=== PATIENT | female | born 1950 | race Caucasian/White ===

== ENCOUNTER → 2018-12-21 16:19 | Outpatient (CLI) | payer MEDICARE, OTHER, SELFPAY ==
--- NOTE | 2018-12-21 16:22 | CT_ITS ---
STUDY: CT BRAIN WITHOUT CONTRAST REASON FOR EXAM: Female, 68 years old. Headache and left-sided facial droop. Younger in. History of cerebral palsy. RADIATION DOSAGE (If Supplied By Facility): CTDIvol = ( 44.99 ) mGy, DLP = ( 762.36 ) mGycm TECHNIQUE: Transaxial CT imaging of the brain was performed without administration of intravenous contrast material. Individualized dose optimization techniques were used for this CT. COMPARISON: March 03, 2016. FINDINGS: Normal soft tissue structures. Normal calvarium. There is mild cerebral atrophy with widening of the extra-axial spaces and ventricular dilatation. This is most marked in the right parietal region. Normal white matter tracts of the cerebral hemispheres. There is a remote lacunar infarct in both basal ganglia as. Normal thalami. Normal brainstem. Normal cerebellum. There is no intracranial hemorrhage. There are no findings of an acute ischemic infarction. Normal visualized paranasal sinuses. CT/Brain/Head without Contrast IMPRESSION: Chronic involutional changes without evidence of acute intracranial or calvarial abnormality. There is no interval change. There is continued concern for acute stroke, MRI is recommended. Electronically Signed: Phil Silverio DO at 16:43 EDT Tel [phone], Service support ,
== END ==
PROVIDERS: Family Provider Family Medicine; PCP Family Medicine; Referring Provider Family Medicine; Visit Provider Family Medicine
DX: R51 Headache (principal); R29.810 Facial weakness
CPT/HCPCS: 70450

== ENCOUNTER 2019-06-12 16:48 | Emergency (ER) | payer MEDICARE, OTHER, SELFPAY ==
[2019-05-26 13:06] VITALS: BMI 36.8
[2019-06-12 16:49] VITALS: BP 170/85; PULSE 96; RESP 16; TEMP 37.2; O2SAT 95; BMI 40.2
--- NOTE | 2019-06-12 17:05 | RAD_ITS ---
STUDY: X-RAY - LEFT SHOULDER REASON FOR EXAM: Female, 68 years old. Pain. Falls. TECHNIQUE: History view(s) of the shoulder. COMPARISON: None. FINDINGS: There is mild degenerative arthrosis of the glenohumeral articulation. There is degenerative arthrosis of the acromioclavicular joint without inferior osseous spur formation. Normal acromion. Normal humeral head and visualized proximal humerus. The soft tissue structures are unremarkable. There is no demonstrated fracture. Normal visualized pulmonary apex. RAD/Shoulder min 2 Views IMPRESSION: No acute fracture or dislocation. Degenerative changes. Electronically Signed: Migel Mahoney MD at 18:00 EST , Service support ,
--- NOTE | 2019-06-12 17:05 | RAD_ITS ---
STUDY: X-RAY - RIGHT KNEE REASON FOR EXAM: Female, 68 years old. RIGHT KNEE PAIN FROM TWO FALLS TODAY TECHNIQUE: 4 view(s) of the knee. COMPARISON: None. FINDINGS: Normal visualized distal femur. Normal visualized proximal tibia and fibula. Normal proximal tibiofibular articulation. There is no demonstrated fracture. Normal appearance of total knee arthroplasty. There are atherosclerotic calcifications. RAD/Knee 4 or More Views IMPRESSION: No acute fracture or dislocation. Electronically Signed: Migel Mahoney MD at 17:41 EST , Service support ,
--- NOTE | 2019-06-12 17:06 | ED.VISSUMM ---
- ER Visit Summary Date of Service: 06/12/19 Chief Complaint: Fall History of Present Illness: The patient is a 68 F who presents after a fall that occurred today. Patient actually fell twice today. Patient is wheelchair-bound due to cerebral palsy and fell while transferring from her wheelchair. Patient initially injured her right knee when she fell. Patient injured her left shoulder on the second fall. Patient states her pain is aching in her left shoulder and sharp in her right knee. Patient states her pain is worse with any movement. Patient denies any paresthesias or weakness. Patient denies any head injury or loss of consciousness. Physical Examination: Vital signs are stable. Patient is afebrile. Patient is in no acute distress. Musculoskeletal exam reveals tenderness over the left acromioclavicular joint. There is no edema or ecchymosis. There is no deformity noted. Range of motion was slightly limited in all motions of the left shoulder secondary to pain. There is no laxity appreciated. There is also tenderness edema and ecchymosis over the right knee. Range of motion was limited in flexion past 30 degrees secondary to pain. There is no effusion. There is no obvious deformity noted. There is no bony crepitance or step-off. Sensation was intact light touch bilaterally in the upper and lower extremities. Strength is 5/5 bilateral knee upper and lower extremities. Radial and pedal pulses are equal bilaterally. Test Results: X-rays of the right knee and left shoulder were obtained. There are no acute fractures. The knee prosthesis was intact. There is no dislocation noted. These were interpreted by the radiologist and myself. Emergency Department Course and Treatment: Patient was advised of her results. Patient was instructed to ice and elevate the right knee and left shoulder. Patient was instructed to follow-up with her primary care physician in 5 to 7 days. Patient has [place] at home for pain. Patient understood and was agreeable with the plan. All questions were answered. Disposition: Discharge home Impression: 1. Right knee contusion 2. Left shoulder contusion This note was generated with [employer] dictation software. It may contain incorrect words, spelling, and punctuation that were not noted in review of the chart prior to signing ED Disposition - Plan for ED Patient: Disposition: Home or Assisted Living Diagnosis: Contusion of left shoulder, Contusion of right knee, initial encounter Instructions: CONTUSION, Soft Tissue Referrals: Baudilio Sultana MD [Primary Care Provider] - 5-7 Days
[2019-06-12 18:07] VITALS: BP 162/88; PULSE 90; RESP 16; O2SAT 97
== END 2019-06-12 19:06 | disposition home or self-care (01) ==
PROVIDERS: Emergency Provider Emergency Medicine; Family Provider Family Medicine; PCP Family Medicine
DX: S40.012A Contusion of left shoulder, initial encounter (principal); S80.01XA Contusion of right knee, initial encounter; W05.0XXA Fall from non-moving wheelchair, initial encounter; Y93.9 Activity, unspecified; Y92.9 Unspecified place or not applicable; Y99.9 Unspecified external cause status; G80.9 Cerebral palsy, unspecified; M32.9 Systemic lupus erythematosus, unspecified; I25.10 Atherosclerotic heart disease of native coronary artery without angina pectoris; E11.9 Type 2 diabetes mellitus without complications; E03.9 Hypothyroidism, unspecified; M79.7 Fibromyalgia; R19.7 Diarrhea, unspecified; Z79.82 Long term (current) use of aspirin; Z79.01 Long term (current) use of anticoagulants; Z79.4 Long term (current) use of insulin; Z79.899 Other long term (current) drug therapy; Z99.3 Dependence on wheelchair; Z95.5 Presence of coronary angioplasty implant and graft; Z96.651 Presence of right artificial knee joint
CPT/HCPCS: 73030; 73564; 99283

== ENCOUNTER → 2019-08-11 10:26 | Outpatient (CLI) | payer MEDICARE, OTHER, SELFPAY ==
[2019-08-11 12:07] LABS: Vitamin B12 179 pg/mL (211-911)
== END ==
PROVIDERS: PCP Family Medicine; Visit Provider Family Medicine
DX: D75.89 Other specified diseases of blood and blood-forming organs (principal)
CPT/HCPCS: 36415; 82607; 82746

== ENCOUNTER → 2019-08-18 09:11 | Outpatient (CLI) | payer MEDICARE, OTHER, SELFPAY ==
[2019-08-18 12:30] LABS: Vitamin B12 197 pg/mL (211-911)
[2019-08-19 13:01] LABS: Anti-Parietal Cell AB, QN 2.4 Units (0.0-20.0)
== END ==
PROVIDERS: PCP Family Medicine; Visit Provider Family Medicine
DX: D51.8 Other vitamin B12 deficiency anemias (principal)
CPT/HCPCS: 36415; 82607; 83516

== ENCOUNTER → 2019-11-10 08:28 | Outpatient (CLI) | payer MEDICARE, OTHER, SELFPAY ==
[2019-11-10 10:23] LABS: Mucous, Urine 0 SEEN /hpf (<or=2+); Red Blood Cells-Urine 0 SEEN /hpf (0-5); Squamous Epithelial Cells - UA 0 SEEN /hpf (5-10)
[2019-11-10 10:37] LABS: Color, Urine Yellow (Yellow); Glucose, Dipstick Normal (Normal); Ketone-Dipstick Negative (Negative); Leukocyte Esterase-Dipstick 500 /ul (Negative); Nitrite-Dipstick Positive (Negative); Occult Blood-Urine 25 /ul (Negative); Protein-Dipstick 30 mg/dl (Negative); Urine Bilirubin Dipstick Negative (Negative); Urine Clarity Cloudy (Clear); Urine Urobilinogen Normal (Normal)
[2019-11-10 10:43] LABS: Absolute Lymphocyte Count 1.34 X10^3/uL (0.83-4.51); Absolute Neutrophil Count 2.7 X10^3/uL (2.0-7.7); Basophil# 0.03 X10^3/uL; Basophil% 0.7 % (0-1); Eosinophil# 0.14 X10^3/uL; Eosinophils% 3.1 % (0-5); Hematocrit 40.3 % (37-47); Hemoglobin 13.4 g/dL (12.0-15.0); Lymphocyte # 1.34 X10^3/ul (4.0); Lymphocyte % 29.2 % (19-41); Mean Corp Hgb Conc 33.3 g/dL (32-36); Mean Corpuscular Hgb 32.9 pg (27.0-32.0); Mean Platelet Vol. 10.9 fl (6.2-12.0); Monocyte# 0.32 X10^3/uL; NRBC Flagged by Analyzer 0 % (0-5); Neutrophil # 2.74 X10^3/uL (2.7-7.7); Neutrophil % 59.6 % (47-70); Platelet Count 189 K/mm3 (150-450); RBC Distribution Width CV 12.5 % (11.6-14.6); RBC Distribution Width SD 45.1 fl (35.1-43.9); Red Blood Count 4.07 M/mm3 (4.2-5.4); White Blood Count 4.6 K/mm3 (4.4-11.0)
[2019-11-10 10:47] LABS: Bacteria 2+ /hpf (None Seen); White Blood Cells >100 SEEN /hpf (0-5)
[2019-11-10 12:54] LABS: Vitamin B12 366 pg/mL (211-911)
[2019-11-10 12:55] LABS: Hemoglobin A1c 6.3 % (3.8-5.6)
[2019-11-10 12:56] LABS: BUN 10 mg/dL (7-18); Glucose 138 mg/dL (74-106)
[2019-11-10 12:57] LABS: ALB/GLOB Ratio 0.9 RATIO (0.9-2.4); AST(SGOT) 21 U/L (15-37); Alanine Aminotransfer ALT/SGPT 18 U/L (13-56); Albumin, Serum 2.6 g/dL (3.2-5.0); Alkaline Phosphatase 41 U/L (45-117); BUN/Creat Ratio 14.7 RATIO (10-20); Calcium,Total 8.8 mg/dL (8.5-10.1); Chloride 107 mmol/L (98-107); Creatinine, Serum 0.68 mg/dL (0.55-1.02); EST Glomerular Filtration Rate 91 mL/min (>60); Est Glom Filt Rate - Afr Amer 110 mL/min (>60); Globulin 2.9 g/dL (2.2-4.2); Protein, Total 5.5 g/dL (6.4-8.2); Sodium Level 142 mmol/L (136-145)
[2019-11-10 12:58] LABS: Anion Gap 5 (5-15)
== END ==
PROVIDERS: Visit Provider Family Medicine
DX: E53.8 Deficiency of other specified B group vitamins (principal); E11.40 Type 2 diabetes mellitus with diabetic neuropathy, unspecified; I10 Essential (primary) hypertension; R35.0 Frequency of micturition
CPT/HCPCS: 36415; 80053; 81001; 82607; 83036; 85025; 87077; 87086; 87088; 87186

== ENCOUNTER → 2020-01-31 14:09 | Outpatient (CLI) | payer MEDICARE, OTHER, SELFPAY ==
[2019-11-28 13:02] VITALS: BMI 31.9
[2020-01-31 15:14] LABS: Erythrocyte Sedimentation Rate 10 mm/hr (0-30)
[2020-01-31 15:28] LABS: CRP 4.07 mg/L (0.0-3.0)
[2020-02-02 14:09] LABS: Anti-Scleroderma-70 AB <0.2 AI (0.0-0.9); RNP Ab <0.2 AI (0.0-0.9); SJOGREN'S Anti-SS-B test < 0.2 AI (0.0-0.9); Smith Ab <0.2 AI (0.0-0.9)
[2020-02-02 15:33] LABS: ANTINUCLEAR ANTIBODIES DIRECT Positive (Negative); Anti-Mitochondrial AB <20.0 Units (0.0-20.0); Anti-dsDNA Ab <1 IU/mL (0-9)
[2020-02-04 03:06] LABS: Complement C3 130 mg/dL (82-167)
[2020-02-04 08:32] LABS: Anti-Parietal Cell AB, QN 2.9 Units (0.0-20.0); Anti-Smooth Muscle ABS 14 Units (0-19); CCP IgG Antibodies 4 units (0-19); Thyroid Peroxidase AB 9 IU/mL (0-34)
== END ==
PROVIDERS: PCP Family Medicine; Referring Provider Internal Medicine Rheumatology; Visit Provider Internal Medicine Rheumatology
DX: M32.10 Systemic lupus erythematosus, organ or system involvement unspecified (principal)
CPT/HCPCS: 36415; 83516; 85652; 86038; 86140; 86160; 86200; 86225; 86235; 86376

== ENCOUNTER → 2020-03-21 08:33 | Outpatient (CLI) | payer MEDICARE, OTHER, SELFPAY ==
[2019-11-28 13:02] VITALS: BMI 31.9
[2020-03-21 11:01] LABS: Absolute Lymphocyte Count 1.55 X10^3/uL (0.83-4.51); Absolute Neutrophil Count 3.9 X10^3/uL (2.0-7.7); Basophil# 0.04 X10^3/uL; Basophil% 0.7 % (0-1); Eosinophil# 0.18 X10^3/uL; Hematocrit 40.8 % (37-47); Hemoglobin 13.5 g/dL (12.0-15.0); Lymphocyte # 1.55 X10^3/ul (4.0); Lymphocyte % 25.6 % (19-41); Mean Corp Hgb Conc 33.1 g/dL (32-36); Mean Corpuscular Hgb 32.4 pg (27.0-32.0); Mean Corpuscular Volume 97.8 fL (81-99); Mean Platelet Vol. 10.6 fl (6.2-12.0); Monocyte# 0.32 X10^3/uL; Monocyte% 5.3 % (0-10); NRBC Flagged by Analyzer 0 % (0-5); Neutrophil # 3.93 X10^3/uL (2.7-7.7); Neutrophil % 64.9 % (47-70); Platelet Count 213 K/mm3 (150-450); RBC Distribution Width CV 13.5 % (11.6-14.6); RBC Distribution Width SD 48.1 fl (35.1-43.9); Red Blood Count 4.17 M/mm3 (4.2-5.4); White Blood Count 6.1 K/mm3 (4.4-11.0)
[2020-03-21 11:30] LABS: ALB/GLOB Ratio 0.7 RATIO (0.9-2.4); AST(SGOT) 40 U/L (15-37); Alanine Aminotransfer ALT/SGPT 25 U/L (13-56); Albumin, Serum 2.7 g/dL (3.2-5.0); Alkaline Phosphatase 50 U/L (45-117); Anion Gap 7 (5-15); BUN 7 mg/dL (7-18); BUN/Creat Ratio 11.8 RATIO (10-20); Calcium,Total 8.3 mg/dL (8.5-10.1); Chloride 109 mmol/L (98-107); Cholesterol 177 mg/dL (200); Creatinine, Serum 0.59 mg/dL (0.55-1.02); EST Glomerular Filtration Rate 107 mL/min (>60); Est Glom Filt Rate - Afr Amer 130 mL/min (>60); Globulin 3.9 g/dL (2.2-4.2); Glucose 166 mg/dL (74-106); High Density Lipoprotein 31 mg/dL; Protein, Total 6.6 g/dL (6.4-8.2); Sodium Level 140 mmol/L (136-145); Triglycerides 160 mg/dL; Very Low Density Lipoprotein 32 mg/dL (5-40)
[2020-03-21 11:31] LABS: Vitamin B12 441 pg/mL (211-911)
[2020-03-21 11:43] LABS: Hemoglobin A1c 6.9 % (3.8-5.6)
== END ==
PROVIDERS: PCP Family Medicine; Referring Provider Family Medicine; Visit Provider Family Medicine
DX: E11.40 Type 2 diabetes mellitus with diabetic neuropathy, unspecified (principal); E53.8 Deficiency of other specified B group vitamins
CPT/HCPCS: 36415; 80053; 80061; 82607; 83036; 85025

== ENCOUNTER → 2020-07-11 07:57 | Outpatient (CLI) | payer MEDICARE, OTHER, SELFPAY ==
[2019-11-28 13:02] VITALS: BMI 31.9
[2020-07-11 10:58] LABS: Microalbumin,Random Urine 13.7 mg/L (NO RANGE EST.)
[2020-07-11 11:16] LABS: Thyroid Stim Hormone (TSH) 1.74 uIU/mL (0.358-3.74)
== END ==
PROVIDERS: PCP Family Medicine; Referring Provider Family Medicine; Visit Provider Family Medicine
DX: E11.40 Type 2 diabetes mellitus with diabetic neuropathy, unspecified (principal); E03.9 Hypothyroidism, unspecified
CPT/HCPCS: 36415; 82043; 82570; 84443

== ENCOUNTER → 2020-08-21 04:39 | Outpatient (REF) | payer MEDICARE, OTHER, SELFPAY ==
[2020-08-20 13:04] VITALS: BMI 34.8
[2020-08-21 11:14] LABS: Absolute Lymphocyte Count 1.17 X10^3/uL (0.83-4.51); Absolute Neutrophil Count 2.8 X10^3/uL (2.0-7.7); Basophil# 0.02 X10^3/uL; Basophil% 0.5 % (0-1); Eosinophil# 0.13 X10^3/uL; Hematocrit 31.6 % (37-47); Hemoglobin 11.8 g/dL (12.0-15.0); Lymphocyte # 1.17 X10^3/ul (4.0); Lymphocyte % 26.8 % (19-41); Mean Corp Hgb Conc 37.3 g/dL (32-36); Mean Corpuscular Hgb 38.6 pg (27.0-32.0); Mean Corpuscular Volume 103.3 fL (81-99); Mean Platelet Vol. 11.1 fl (6.2-12.0); Monocyte# 0.28 X10^3/uL; Monocyte% 6.4 % (0-10); NRBC Flagged by Analyzer 0 % (0-5); Neutrophil # 2.75 X10^3/uL (2.7-7.7); Neutrophil % 63.1 % (47-70); Platelet Count 162 K/mm3 (150-450); RBC Distribution Width CV 19.7 % (11.6-14.6); RBC Distribution Width SD 54.6 fl (35.1-43.9); Red Blood Count 3.06 M/mm3 (4.2-5.4); White Blood Count 4.4 K/mm3 (4.4-11.0)
[2020-08-21 11:37] LABS: Hemoglobin A1c 5.1 % (3.8-5.6)
[2020-08-21 11:50] LABS: ALB/GLOB Ratio 0.8 RATIO (0.9-2.4); AST(SGOT) 49 U/L (15-37); Alanine Aminotransfer ALT/SGPT 34 U/L (13-56); Albumin, Serum 2.7 g/dL (3.2-5.0); Alkaline Phosphatase 51 U/L (45-117); Anion Gap 6 (5-15); BUN 12 mg/dL (7-18); BUN/Creat Ratio 19.3 RATIO (10-20); Calcium,Total 8.4 mg/dL (8.5-10.1); Chloride 108 mmol/L (98-107); Cholesterol 128 mg/dL (200); Creatinine, Serum 0.62 mg/dL (0.55-1.02); EST Glomerular Filtration Rate 101 mL/min (>60); Est Glom Filt Rate - Afr Amer 122 mL/min (>60); Globulin 3.5 g/dL (2.2-4.2); Glucose 108 mg/dL (74-106); High Density Lipoprotein 37 mg/dL; Potassium 4.9 mmol/L (3.5-5.1); Protein, Total 6.2 g/dL (6.4-8.2); Sodium Level 140 mmol/L (136-145); Triglycerides 102 mg/dL; Very Low Density Lipoprotein 20 mg/dL (5-40)
== END ==
LOC: LAB 04:39
PROVIDERS: PCP Family Medicine; Referring Provider Family Medicine; Visit Provider Family Medicine
DX: E78.00 Pure hypercholesterolemia, unspecified (principal); E11.42 Type 2 diabetes mellitus with diabetic polyneuropathy; Z86.711 Personal history of pulmonary embolism
CPT/HCPCS: 36415; 80053; 80061; 83036; 85025

== ENCOUNTER → 2020-08-29 04:53 | Outpatient (CLI) | payer MEDICARE, OTHER, SELFPAY ==
[2020-08-20 13:04] VITALS: BMI 34.8
[2020-08-29 09:58] LABS: Absolute Lymphocyte Count 1.21 X10^3/uL (0.83-4.51); Absolute Neutrophil Count 3.2 X10^3/uL (2.0-7.7); Basophil# 0.02 X10^3/uL; Basophil% 0.4 % (0-1); Eosinophil# 0.14 X10^3/uL; Eosinophils% 2.9 % (0-5); Hematocrit 33.8 % (37-47); Hemoglobin 11.7 g/dL (12.0-15.0); Lymphocyte # 1.21 X10^3/ul (4.0); Lymphocyte % 24.9 % (19-41); Mean Corp Hgb Conc 34.6 g/dL (32-36); Mean Corpuscular Hgb 34.7 pg (27.0-32.0); Mean Corpuscular Volume 100.3 fL (81-99); Mean Platelet Vol. 10.8 fl (6.2-12.0); Monocyte# 0.31 X10^3/uL; Monocyte% 6.4 % (0-10); NRBC Flagged by Analyzer 0 % (0-5); Neutrophil # 3.15 X10^3/uL (2.7-7.7); Platelet Count 173 K/mm3 (150-450); RBC Distribution Width CV 15.7 % (11.6-14.6); RBC Distribution Width SD 56.1 fl (35.1-43.9); Red Blood Count 3.37 M/mm3 (4.2-5.4); White Blood Count 4.9 K/mm3 (4.4-11.0)
[2020-08-29 10:27] LABS: Vitamin B12 748 pg/mL (211-911)
[2020-08-29 10:38] LABS: AST(SGOT) 36 U/L (15-37); Alanine Aminotransfer ALT/SGPT 27 U/L (13-56); Albumin, Serum 2.8 g/dL (3.2-5.0); Alkaline Phosphatase 51 U/L (45-117); Bilirubin, Direct 0.16 mg/dL (0.00-0.30); Ferritin 121 ng/mL (8-252); Globulin 3.7 g/dL (2.2-4.2); Iron 102 ug/dL (50-170); Iron Binding Capacity,Total 260 ug/dL (250-450); Protein, Total 6.5 g/dL (6.4-8.2)
[2020-08-30 06:07] LABS: HEPATITIS B SURFACE AG Negative (Negative); Hepatitis A IgM Antibody Negative (Negative); Hepatitis B Core AB IgM Negative (Negative)
[2020-08-30 09:50] LABS: Hep C Antibodies <0.1 s/co ratio (0.0-0.9)
== END ==
PROVIDERS: PCP Family Medicine; Referring Provider Family Medicine; Visit Provider Family Medicine
DX: R74.8 Abnormal levels of other serum enzymes (principal); D64.9 Anemia, unspecified
CPT/HCPCS: 36415; 80074; 80076; 82274; 82607; 82728; 82746; 83540; 83550; 85025

== ENCOUNTER → 2020-09-21 05:31 | Outpatient (CLI) | payer MEDICARE, OTHER, SELFPAY ==
[2020-08-20 13:04] VITALS: BMI 34.8
[2020-09-21 10:38] LABS: Red Blood Cells-Urine 0 SEEN /hpf (0-5)
[2020-09-21 10:53] LABS: Erythrocyte Sedimentation Rate 15 mm/hr (0-30)
[2020-09-21 10:55] LABS: Color, Urine Yellow (Yellow); Glucose, Dipstick Normal (Normal); Ketone-Dipstick Negative (Negative); Leukocyte Esterase-Dipstick 500 /ul (Negative); Nitrite-Dipstick Negative (Negative); Occult Blood-Urine Negative /ul (Negative); Protein-Dipstick Negative (Negative); Urine Bilirubin Dipstick Negative (Negative); Urine Clarity Sl. Cloudy (Clear); Urine Urobilinogen Normal (Normal)
[2020-09-21 10:55] LABS: Absolute Lymphocyte Count 1.45 X10^3/uL (0.83-4.51); Absolute Neutrophil Count 3.5 X10^3/uL (2.0-7.7); Basophil# 0.03 X10^3/uL; Basophil% 0.5 % (0-1); Eosinophil# 0.19 X10^3/uL; Eosinophils% 3.4 % (0-5); Hemoglobin 12.4 g/dL (12.0-15.0); Lymphocyte # 1.45 X10^3/ul (4.0); Lymphocyte % 26.1 % (19-41); Mean Corp Hgb Conc 33.5 g/dL (32-36); Mean Corpuscular Volume 104.5 fL (81-99); Mean Platelet Vol. 11.1 fl (6.2-12.0); Monocyte# 0.32 X10^3/uL; Monocyte% 5.8 % (0-10); NRBC Flagged by Analyzer 0 % (0-5); Neutrophil # 3.54 X10^3/uL (2.7-7.7); Neutrophil % 63.7 % (47-70); Platelet Count 215 K/mm3 (150-450); RBC Distribution Width CV 14.7 % (11.6-14.6); RBC Distribution Width SD 55.6 fl (35.1-43.9); Red Blood Count 3.54 M/mm3 (4.2-5.4); White Blood Count 5.6 K/mm3 (4.4-11.0)
[2020-09-21 11:01] LABS: Bacteria 1+ /hpf (None Seen); Mucous, Urine 1+ /hpf (<or=2+); Squamous Epithelial Cells - UA 5-10 SEEN /hpf (5-10); White Blood Cells 25-50 SEEN /hpf (0-5)
[2020-09-21 11:09] LABS: Amphetamine Urine VISTA NEGATIVE (<1000 ng/mL); Barbiturate Urine VISTA NEGATIVE (< 200 ng/mL); Benzodiazepine Urine VISTA NEGATIVE (< 200 ng/mL); Cocaine Urine VISTA NEGATIVE (< 300 ng/mL); Ecstacy Urine VISTA POSITIVE (< 500 ng/mL); Methadone Urine VISTA NEGATIVE (< 300 ng/mL); PCP Urine VISTA NEGATIVE (< 25 ng/mL); THC Urine VISTA NEGATIVE (< 50 ng/mL); Vista UDS pH Range 5
[2020-09-21 11:12] LABS: AST(SGOT) 44 U/L (15-37); Alanine Aminotransfer ALT/SGPT 28 U/L (13-56); Albumin, Serum 2.9 g/dL (3.2-5.0); BUN 10 mg/dL (7-18); CRP 4.09 mg/L (0.0-3.0); Creatinine, Serum 0.72 mg/dL (0.55-1.02); EST Glomerular Filtration Rate 86 mL/min (>60); Est Glom Filt Rate - Afr Amer 104 mL/min (>60)
== END ==
PROVIDERS: PCP Family Medicine; Referring Provider Internal Medicine Rheumatology; Visit Provider Internal Medicine Rheumatology
DX: M32.10 Systemic lupus erythematosus, organ or system involvement unspecified (principal); Z51.81 Encounter for therapeutic drug level monitoring
CPT/HCPCS: 36415; 80307; 81001; 82040; 82565; 84450; 84460; 84520; 85025; 85652; 86140

== ENCOUNTER → 2020-10-09 08:05 | Outpatient (CLI) | payer MEDICARE, OTHER, SELFPAY ==
[2020-08-20 13:04] VITALS: BMI 34.8
== END ==
PROVIDERS: PCP Family Medicine; Referring Provider Family Medicine; Visit Provider Family Medicine
DX: R82.81 Pyuria (principal)
CPT/HCPCS: 87077; 87086; 87088; 87186

== ENCOUNTER → 2021-03-11 | Outpatient (CLI) | payer MEDICARE, OTHER, SELFPAY ==
[2021-03-11 11:40] LABS: 24 HR UR TOTAL VOLUME 925 ML; Microalbumin,Random Urine 7.9 mg/L (NOT. EST.); Urine Microalbumin (24 Hour) 7.3 mg/24 HR (0.0-30.0)
== END | disposition home or self-care (01) ==
LOC: LABSPEC 10:22
PROVIDERS: PCP Family Medicine; Visit Provider Family Medicine
DX: R80.9 Proteinuria, unspecified (principal); Z99.3 Dependence on wheelchair
CPT/HCPCS: 81050; 82043

== ENCOUNTER → 2021-03-26 10:17 | Outpatient (CLI) | payer MEDICARE, MEDICAID, SELFPAY ==
[2021-03-26 10:56] LABS: Erythrocyte Sedimentation Rate 11 mm/hr (0-30)
[2021-03-26 10:57] LABS: Absolute Lymphocyte Count 1.25 X10^3/uL (0.83-4.51); Absolute Neutrophil Count 3.1 X10^3/uL (2.0-7.7); Basophil# 0.04 X10^3/uL; Basophil% 0.8 % (0-1); Eosinophil# 0.16 X10^3/uL; Eosinophils% 3.3 % (0-5); Hematocrit 40.7 % (37-47); Hemoglobin 13.5 g/dL (12.0-15.0); Lymphocyte # 1.25 X10^3/ul (0.83-4.51); Lymphocyte % 25.4 % (19-41); Mean Corp Hgb Conc 33.2 g/dL (32-36); Mean Corpuscular Hgb 31.5 pg (27.0-32.0); Mean Corpuscular Volume 94.9 fL (81-99); Mean Platelet Vol. 10.4 fl (6.2-12.0); Monocyte# 0.34 X10^3/uL; Monocyte% 6.9 % (0-10); NRBC Flagged by Analyzer 0 % (0-5); Neutrophil # 3.12 X10^3/uL (2.7-7.7); Neutrophil % 63.4 % (47-70); Platelet Count 184 K/mm3 (150-450); RBC Distribution Width SD 45.4 fl (35.1-43.9); Red Blood Count 4.29 M/mm3 (4.2-5.4); White Blood Count 4.9 K/mm3 (4.4-11.0)
[2021-03-26 11:43] LABS: AST(SGOT) 21 U/L (15-37); Alanine Aminotransfer ALT/SGPT 17 U/L (13-56); Albumin, Serum 2.9 g/dL (3.2-5.0); BUN 12 mg/dL (7-18); CPK Total, Creatine Kinase 52 U/L (26-192); CRP < 2.90 mg/L (0.0-3.0); Creatinine, Serum 0.93 mg/dL (0.55-1.02); EST Glomerular Filtration Rate 63 mL/min (>60); Est Glom Filt Rate - Afr Amer 77 mL/min (>60)
[2021-03-27 17:07] LABS: Anti-Centromere B Ab <0.2 AI (0.0-0.9); Anti-Chromatin 0.2 AI (0.0-0.9); Anti-Jo <0.2 AI (0.0-0.9); Anti-Scleroderma-70 AB <0.2 AI (0.0-0.9); Anti-ribosomal P Antibodies <0.2 AI (0.0-0.9); RNP Ab 0.4 AI (0.0-0.9); SJOGREN'S Anti-SS-A test 0.8 AI (0.0-0.9); SJOGREN'S Anti-SS-B test < 0.2 AI (0.0-0.9); Smith Ab <0.2 AI (0.0-0.9); Smith/RNP Ab <0.2 AI (0.0-0.9)
[2021-03-28 08:09] LABS: Complement C3 108 mg/dL (82-167); Cytoplasmic Ab (C-ANCA) <1:20 titer (Neg:<1:20)
[2021-03-28 14:17] LABS: CCP IgG Antibodies 6 units (0-19); Perinuclear Ab (P-ANCA) <1:20 titer (Neg:<1:20); Thyroid Peroxidase AB < 8 IU/mL (0-34)
[2021-03-28 18:19] LABS: Anti-dsDNA Ab <1 IU/mL (0-9)
== END ==
PROVIDERS: PCP Family Medicine; Referring Provider Internal Medicine Rheumatology; Visit Provider Internal Medicine Rheumatology
DX: M32.10 Systemic lupus erythematosus, organ or system involvement unspecified (principal)
CPT/HCPCS: 36415; 82040; 82550; 82565; 84443; 84450; 84460; 84520; 84550; 85025; 85652; 86038; 86140; 86160; 86200; 86225; 86235; 86256; 86376

== ENCOUNTER 2021-04-22 21:53 | Emergency (ER) | payer MEDICARE, OTHER, MEDICAID, SELFPAY ==
[2021-04-22 21:54] VITALS: BP 152/80; PULSE 88; RESP 16; TEMP 37.6; O2SAT 94; BMI 33.3
[2021-04-22 22:06] VITALS: BP 159/86; PULSE 90; RESP 22; O2SAT 96
--- NOTE | 2021-04-22 22:09 | EKG12_ITS ---
Test Reason : WEAKNESS Blood Pressure : / mmHG Vent. Rate : 087 BPM Atrial Rate : 087 BPM P-R Int : 146 ms QRS Dur : 076 ms QT Int : 368 ms P-R-T Axes : 034 -46 057 degrees QTc Int : 442 ms Normal sinus rhythm Left anterior fascicular block Septal infarct , age undetermined , cannot be excluded Abnormal ECG Confirmed by TYREL MENDOZA, YVETTE ([id number]), photo editor DEL KAMINSKI ([id number]) on 04/24/2021 8:44:40 AM Referred By: BO Confirmed By:YVETTE SARAH MD
--- NOTE | 2021-04-22 22:10 | EDS_ITS ---
HPI History of Present Illness Chief Complaint: Weakness Informant: patient, family and EMS Narrative Narrative: 70-year-old female presenting to the emergency department with fever and weakness. Patient states that she got her Covid booster yesterday. She states that today she is felt very weak. She states that she slept most of the day and required assistance getting in and out of her wheelchair. States that normally she is able to help herself stand transition but today cannot. She states that EMS told her she had a fever. She notes a headache. [facility] Medical History (Updated 04/23/21 @ 00:[address] Mehran Campos, ) Acute respiratory failure with hypoxia Anxiety and depression Atherosclerotic heart disease of [place] coronary artery without angina pectoris CAD (coronary artery disease) Carotid artery disease Essential hypertension History of cerebral palsy History of fibromyalgia History of hypothyroidism History of pulmonary embolism History of rheumatoid arthritis HTN (hypertension) Hx of systemic lupus erythematosus (SLE) Morbid obesity Pneumonia Presence of stent in coronary artery (~05/17/08) Pure hypercholesterolemia PVD (peripheral vascular disease) Type II diabetes mellitus Home Medications bupropion HCl 150 mg PO BID 06/06/14 [History Last Taken 06/25/17] fluticasone propionate 2 spray NASAL DAILY 06/06/14 [History Last Taken 06/25/17] hydrocodone-acetaminophen 1 tab PO Q6H PRN PRN #10 tab 06/30/17 [Rx Last Taken Unknown] aspirin 81 mg tablet,delayed release 81 mg PO DAILY 05/26/19 [History Last Taken Unknown] cholecalciferol (vitamin D3) 50 mcg (2,000 unit) tablet 2,000 unit PO DAILY 05/26/19 [History Last Taken Unknown] gabapentin 600 mg tablet 600 mg PO TID 05/26/19 [History Last Taken Unknown] levothyroxine 125 mcg tablet 125 mcg PO DAILY 05/26/19 [History Last Taken Unknown] mirtazapine 30 mg tablet 30 mg PO QHS tab 05/26/19 [History Last Taken Unknown] multivitamin 1 tab PO DAILY 05/26/19 [History Last Taken Unknown] nitroglycerin 0.4 mg sublingual tablet 0.4 mg SUBLINGUAL Q5-15M PRN 05/26/19 [History Last Taken Unknown] ramipril 5 mg capsule 5 mg PO DAILY 05/26/19 [History Last Taken Unknown] warfarin 2.5 mg tablet 5 mg PO DAILY 05/26/19 [History Last Taken Unknown] calcium carb-D3-mag [id number] 1 ea PO DAILY 06/12/19 [History Last Taken Unknown] cyanocobalamin (vitamin B-12) 1,000 mcg/mL injection solution 100 mcg IM QMONTH 08/20/20 [History Last Taken Unknown] magnesium oxide 500 mg capsule 500 mg PO DAILY 08/20/20 [History Last Taken Unknown] melatonin 10 mg tablet 10 mg PO HS PRN 08/20/20 [History Last Taken Unknown] metoprolol succinate 100 mg tablet,extended release 24 hr 100 mg PO DAILY #90 tab 08/20/20 [Rx Last Taken Unknown] metformin 850 mg tablet 850 mg PO DAILY tab 03/26/21 [History Last Taken Unknown] ketoconazole 1 applic TOPICAL DAILY 04/22/21 [History Last Taken Unknown] mupirocin calcium [Bactroban] 1 applic TOPICAL TID 04/22/21 [History Last Taken Unknown] Allergy/AdvReac Type Severity Reaction Status Date / Time cephalexin monohydrate Allergy Unknown Verified 04/22/21 21:54 [From Keflex] ciprofloxacin Allergy Unknown Verified 04/22/21 21:54 erythromycin base Allergy Unknown Verified 04/22/21 21:54 [Erythromycin Base] naproxen [From Naprosyn] Allergy Unknown Verified 04/22/21 21:54 paroxetine HCl [From Paxil] Allergy Unknown Verified 04/22/21 21:54 Penicillins Allergy Unknown Verified 04/22/21 21:54 promethazine HCl Allergy Unknown Verified 04/22/21 21:54 [From Phenergan] Cvhwelo-Acm-Buu Reductase AdvReac Severe Myalgias Verified 04/22/21 21:54 Inhibitor PAPER TAPE AdvReac Rash Uncoded 04/22/21 21:54 Family History Mother Asthma Diabetes Colon cancer Heart disease COPD (chronic obstructive pulmonary disease) Hypertension Father Heart disease Cancer Lung COPD (chronic obstructive pulmonary disease) Abdominal aortic aneurysm (AAA) Brother Cancer Brain Brother COPD (chronic obstructive pulmonary disease) Surgical History History of appendectomy History of arthroscopy of right knee History of foot surgery History of hernia repair History of knee replacement, total History of tonsillectomy History of total hysterectomy Presence of coronary angioplasty implant and graft (~05/17/08) Social History Smoking Status: Never smoker alcohol intake: current details: Rare substance use type: does not use caffeine: Yes Type: tea Number of servings: 1 ROS ROS ED ROS Narrative Generalized weakness Constitutional Constitutional ED: Denies chills or weight loss Eyes Eyes: Denies change in vision or diplopia ENT ENT ED: Denies ear pain, rhinorrhea or sore throat Cardiovascular Cardiovascular: Denies chest pain, orthopnea, palpitations or racing heartbeat Respiratory/Chest Respiratory/Chest: Denies cough, dyspnea or orthopnea Gastrointestinal Gastrointestinal: Denies abdominal pain, diarrhea, nausea or vomiting Genitourinary Genitourinary ED: Denies dysuria, hematuria or urinary frequency Musculoskeletal Musculoskeletal: Reports myalgias; Denies arthralgias Integumentary Denies abscess or rash Neurologic Neurologic: Reports headache(s); Denies weakness Psychiatric Psychiatric: Denies anxiety, depression, suicidal ideation or suicidal thoughts Endocrine Endocrinology: Denies polydipsia, polyphagia or polyuria Allergic/Immunologic Allergic/Immunologic ED: Denies mouth swelling, tongue swelling or urticaria EXAM Physical Exam Const Vital Signs: 04/22/21 21:54 04/22/21 22:06 04/22/21 22:09 Temperature 99.6 F H Temperature Source Temporal Pulse Rate 88 90 Respiratory Rate 16 22 H Respiratory Effort Normal Non-Labored Respiratory Pattern Normal Blood Pressure 152/80 H 159/86 H Blood Pressure Mean 104 110 Pulse Ox 94 96 Oxygen Delivery Method Room Air Room Air Positive well nourished, well developed and obese General Appearance ED: well developed Nutritional Appearance: obese HEENT Reports normocephalic, head/scalp atraumatic, TM's clear and moist mucous membranes Negative for trauma Tympanic Membrane ED: Yes TM's clear Eyes PERRL and EOMs intact bilaterally Neck no lymphadenopathy, supple and no JVD Resp normal respiratory effort and clear to auscultation bilaterally Cardio regular rate, regular rhythm and no murmurs GI normal to inspection, nondistended, normoactive bowel sounds and non-tender Palpation: soft Back/Spine no CVA tenderness and normal ROM Extremity normal to inspection General Extremety ED: Negative for edema General Extremity: Negative for edema Neuro oriented x3 and CN's II-XII intact bilaterally Sensorium / Orientation: alert Motor Exam: strength 5/5 throughout Psych mental status grossly normal Mood & Affect: Negative for depressed or tearful Skin no rashes or lesions noted and no wounds MDM MDM MDM Narrative Medical decision making narrative: CBC is normal. INR 1.9. CMP showed a creatinine of 1.2 glucose of 163. Troponin high-sensitivity is 5. Urinalysis is normal. Patient's vital signs are normal. Clinically I think the patient is doing well though she reports being very fatigued to the point where she cannot walk. I think she is most likely just having a immune response to her vaccination. Do not see that we have a strong reason to hospitalize her. Lab Data Attestation: I reviewed the patient's lab results. Labs: Laboratory Results - last 24 hr 04/22/21 04/22/21 04/22/21 22:35 22:35 22:35 WBC 6.6 RBC 4.61 Hgb 14.5 Hct 43.0 MCV 93.3 MCH 31.5 MCHC 33.7 RDW Std Deviation 46.3 H RDW Coeff of [place] 13.6 Plt Count 160 MPV 10.0 Immature Gran % (Auto) 0.600 Neut % (Auto) 86.9 H Lymph % (Auto) 6.2 L [place] % (Auto) 5.2 Eos % (Auto) 0.8 Baso % (Auto) 0.3 Absolute Neuts (auto) 5.7 Absolute Lymphs (auto) 0.41 L Nucleated RBC % 0 Differential Comment SEE COMMENT Platelet Estimate ADEQUATE RBC Morphology N CHROM Anisocytosis RARE Macrocytosis RARE PT 21.0 H INR 1.9 Sodium 134 L Potassium 4.7 Chloride 101 Carbon Dioxide 30.0 Anion Gap 3 L BUN 15 Creatinine 1.20 H Estim Creat Clear Calc 39.81 Est GFR (MDRD) Af Amer 57 L Est GFR (MDRD) Non-Af 47 L BUN/Creatinine Ratio 12.5 Glucose 163 H Calcium 8.9 Total Bilirubin 0.70 AST 26 ALT 18 Alkaline Phosphatase 59 Troponin I High Sens 5 Total Protein 8.2 Albumin 3.3 Globulin 4.9 H Albumin/Globulin Ratio 0.7 L Urine Color Urine Clarity Urine pH Ur Specific [place] Urine Protein Urine Glucose (UA) Urine Ketones Urine Occult Blood Urine Nitrite Urine Bilirubin Urine Urobilinogen Ur Leukocyte Esterase Urine RBC Urine WBC Ur Squamous Epith Cells Urine Bacteria Urine Mucus 04/22/21 22:42 WBC RBC Hgb Hct MCV MCH MCHC RDW Std Deviation RDW Coeff of [place] Plt Count MPV Immature Gran % (Auto) Neut % (Auto) Lymph % (Auto) [place] % (Auto) Eos % (Auto) Baso % (Auto) Absolute Neuts (auto) Absolute Lymphs (auto) Nucleated RBC % Differential Comment Platelet Estimate RBC Morphology Anisocytosis Macrocytosis PT INR Sodium Potassium Chloride Carbon Dioxide Anion Gap BUN Creatinine Estim Creat Clear Calc Est GFR (MDRD) Af Amer Est GFR (MDRD) Non-Af BUN/Creatinine Ratio Glucose Calcium Total Bilirubin AST ALT Alkaline Phosphatase Troponin I High Sens Total Protein Albumin Globulin Albumin/Globulin Ratio Urine Color Yellow Urine Clarity Clear Urine pH 6.5 Ur Specific [place] 1.010 Urine Protein Negative Urine Glucose (UA) Normal Urine Ketones Negative Urine Occult Blood 10 H Urine Nitrite Negative Urine Bilirubin Negative Urine Urobilinogen Normal Ur Leukocyte Esterase Negative Urine RBC 0 SEEN Urine WBC 0 SEEN Ur Squamous Epith Cells 0 SEEN Urine Bacteria 0 SEEN Urine Mucus 0 SEEN EKG Initial EKG: Attestation: I personally reviewed and interpreted this EKG as follows: Comments: He has normal sinus rhythm with a ventricular rate of 87 bpm Discharge Plan Triage Chief Complaint: Weakness ED Provider: Mehran Campos Dx/Rx/DC Orders Clinical Impression: Weakness, Type II diabetes mellitus, Morbid obesity Instructions: ED Weakness (Uncertain Cause) Prescriptions: No Action aspirin [Adult Low Dose Aspirin] 81 mg tablet,delayed release (DR/EC) 81 mg PO DAILY RF: 0 gabapentin 600 mg tablet 600 mg PO TID RF: 0 levothyroxine 125 mcg tablet 125 mcg PO DAILY RF: 0 multivitamin Tablet 1 tab PO DAILY RF: 0 nitroglycerin 0.4 mg tablet, sublingual 0.4 mg SUBLINGUAL Q5-15M PRN (Reason: chest pain) RF: 0 ramipril 5 mg capsule 5 mg PO DAILY RF: 0 cholecalciferol (vitamin D3) 2,000 unit tablet 2,000 unit PO DAILY RF: 0 warfarin [Coumadin] 2.5 mg tablet 5 mg PO DAILY RF: 0 cyanocobalamin (vitamin B-12) 1,000 mcg/mL solution 100 mcg IM QMONTH RF: 0 magnesium oxide 500 mg capsule 500 mg PO DAILY RF: 0 melatonin 10 mg tablet 10 mg PO HS PRN (Reason: Sleep) RF: 0 metoprolol succinate 100 mg tablet extended release 24 hr 100 mg PO DAILY Qty: 90 RF: 4 metformin 850 mg tablet 850 mg PO DAILY RF: 0 bupropion HCl 150 MG tablet sustained-release 12 hr 150 mg PO BID RF: 0 fluticasone propionate 1 SPRAY spray,suspension 2 spray NASAL DAILY RF: 0 mirtazapine 30 mg tablet 30 mg PO QHS RF: 0 hydrocodone-acetaminophen 1 TABLET tablet 1 tab PO Q6H PRN PRN (Reason: Pain) Qty: 10 RF: 0 calcium carb-D3-mag [id number] 1 EACH tablet 1 ea PO DAILY RF: 0 mupirocin calcium [Bactroban] 2 % Cream 1 applic TOPICAL TID RF: 0 ketoconazole 2 % Cream 1 applic TOPICAL DAILY RF: 0 Primary Care Provider: Baudilio Sultana Referrals: Baudilio Sultana MD [Primary Care Provider] - 3-5 Days if not improving Disposition Disposition: Home, Self Care
[2021-04-22 22:49] LABS: Bacteria 0 SEEN /hpf (None Seen); Mucous, Urine 0 SEEN /hpf (<or=2+); Red Blood Cells-Urine 0 SEEN /hpf (0-5); Squamous Epithelial Cells - UA 0 SEEN /hpf (5-10); White Blood Cells 0 SEEN /hpf (0-5)
[2021-04-22 22:54] LABS: Absolute Lymphocyte Count 0.41 X10^3/uL (0.83-4.51); Absolute Neutrophil Count 5.7 X10^3/uL (2.0-7.7); Basophil# 0.02 X10^3/uL; Basophil% 0.3 % (0-1); Eosinophil# 0.05 X10^3/uL; Eosinophils% 0.8 % (0-5); Hemoglobin 14.5 g/dL (12.0-15.0); Lymphocyte # 0.41 X10^3/ul (0.83-4.51); Lymphocyte % 6.2 % (19-41); Mean Corp Hgb Conc 33.7 g/dL (32-36); Mean Corpuscular Hgb 31.5 pg (27.0-32.0); Mean Corpuscular Volume 93.3 fL (81-99); Monocyte# 0.34 X10^3/uL; Monocyte% 5.2 % (0-10); NRBC Flagged by Analyzer 0 % (0-5); Neutrophil # 5.73 X10^3/uL (2.7-7.7); Neutrophil % 86.9 % (47-70); POSITIVE DIFFERENTIAL YES; Platelet Count 160 K/mm3 (150-450); RBC Distribution Width CV 13.6 % (11.6-14.6); RBC Distribution Width SD 46.3 fl (35.1-43.9); Red Blood Count 4.61 M/mm3 (4.2-5.4); White Blood Count 6.6 K/mm3 (4.4-11.0)
[2021-04-22 22:57] LABS: Color, Urine Yellow (Yellow); Glucose, Dipstick Normal (Normal); Ketone-Dipstick Negative (Negative); Leukocyte Esterase-Dipstick Negative /ul (Negative); Nitrite-Dipstick Negative (Negative); Occult Blood-Urine 10 /ul (Negative); Protein-Dipstick Negative (Negative); Urine Bilirubin Dipstick Negative (Negative); Urine Clarity Clear (Clear); Urine Urobilinogen Normal (Normal); Urine pH 6.5 (5.0 - 8.0)
[2021-04-22 23:04] LABS: International Normalized Ratio 1.9
[2021-04-22 23:10] LABS: ALB/GLOB Ratio 0.7 RATIO (0.9-2.4); AST(SGOT) 26 U/L (15-37); Alanine Aminotransfer ALT/SGPT 18 U/L (13-56); Albumin, Serum 3.3 g/dL (3.2-5.0); Alkaline Phosphatase 59 U/L (45-117); Anion Gap 3 (5-15); BUN 15 mg/dL (7-18); BUN/Creat Ratio 12.5 RATIO (10-20); Calcium,Total 8.9 mg/dL (8.5-10.1); Chloride 101 mmol/L (98-107); EST Glomerular Filtration Rate 47 mL/min (>60); Est Glom Filt Rate - Afr Amer 57 mL/min (>60); Estimated Creatinine Clearance 39.81 ml/min; Globulin 4.9 g/dL (2.2-4.2); Glucose 163 mg/dL (74-106); Potassium 4.7 mmol/L (3.5-5.1); Protein, Total 8.2 g/dL (6.4-8.2); Sodium Level 134 mmol/L (136-145); Troponin-I HS 5 pg/mL (3.0-54.0)
[2021-04-22 23:11] LABS: Differential Indicated SCAN CRITERIA MET
[2021-04-22 23:12] LABS: Anisocytosis RARE; Macrocytosis RARE; Platelet Estimate ADEQUATE (ADEQ); Red Cell Morphology N CHROM NORMAL (NORM C&C)
[2021-04-22] MEDS: Acetaminophen 500 MG Tablet 1000 MG PO (23:31)
[2021-04-23 00:30] VITALS: BP 144/75; PULSE 80; RESP 18; O2SAT 98
== END 2021-04-23 00:49 | disposition home or self-care (01) ==
PROVIDERS: Emergency Provider Emergency Medicine; PCP Family Medicine
DX: R53.1 Weakness (principal); E11.51 Type 2 diabetes mellitus with diabetic peripheral angiopathy without gangrene; E66.01 Morbid (severe) obesity due to excess calories; I25.10 Atherosclerotic heart disease of native coronary artery without angina pectoris; I10 Essential (primary) hypertension; G80.9 Cerebral palsy, unspecified; M06.9 Rheumatoid arthritis, unspecified; M32.9 Systemic lupus erythematosus, unspecified; E78.00 Pure hypercholesterolemia, unspecified; E03.9 Hypothyroidism, unspecified; F32.A Depression, unspecified; F41.9 Anxiety disorder, unspecified; Z68.33 Body mass index [BMI] 33.0-33.9, adult; Z95.5 Presence of coronary angioplasty implant and graft; Z79.01 Long term (current) use of anticoagulants; Z79.82 Long term (current) use of aspirin; Z79.84 Long term (current) use of oral hypoglycemic drugs; Z79.899 Other long term (current) drug therapy; Z86.711 Personal history of pulmonary embolism
CPT/HCPCS: 80053; 81001; 84484; 85025; 85610; 87426; 93005; 99285; A4216

== ENCOUNTER 2021-09-16 09:24 | Outpatient (CLI) | payer MEDICARE, MEDICAID, SELFPAY ==
[2021-09-16 11:46] LABS: Microalbumin,Random Urine 14.9 mg/L (NO RANGE EST.); Microalbumin:Creatinine Ratio 9.4 mg/g CRE (<30 mg/g CRE)
[2021-09-16 12:29] LABS: AST(SGOT) 22 U/L (15-37); Alanine Aminotransfer ALT/SGPT 18 U/L (13-56); Albumin, Serum 3.4 g/dL (3.2-5.0); Alkaline Phosphatase 58 U/L (45-117); Bilirubin, Direct 0.12 mg/dL (0.00-0.30); Cholesterol 142 mg/dL (200); Globulin 4.1 g/dL (2.2-4.2); High Density Lipoprotein 41 mg/dL; Protein, Total 7.5 g/dL (6.4-8.2); Triglycerides 156 mg/dL; Very Low Density Lipoprotein 31 mg/dL (5-40)
== END 2021-09-16 23:59 | disposition home or self-care (01) ==
LOC: LAB 09:27
PROVIDERS: PCP Family Medicine; Referring Provider Family Medicine; Visit Provider Family Medicine
DX: E11.40 Type 2 diabetes mellitus with diabetic neuropathy, unspecified (principal); E11.42 Type 2 diabetes mellitus with diabetic polyneuropathy; E78.5 Hyperlipidemia, unspecified
CPT/HCPCS: 36415; 80061; 80076; 82043; 82570

== ENCOUNTER → 2024-12-05 | Outpatient (REF) | payer MEDICARE, MEDICAID, SELFPAY ==
--- OUTSIDE RECORDS SUMMARY | 2024-12-05 04:09 | XMS RPT_ITS | CCD ---
Author Organization [facility] Inform ion [facility] Care Team Providers Care Colorer Machine Name Role Phone DAVID ERWIN E Unavailable Unavailable YAIMAARTURO CODYNETH E Unavailable Unavailable ARTURO ERWINNETH Unavailable Unavailable ARTURO ERWINNETH Unavailable Unavailable Phan Coleman Unavailable Unavailable DAVID ERWIN Unavailable Unavailable DAVID ERWIN Unavailable Unavailable Phan Coleman Unavailable Unavailable Jackson Lee Unavailable UnavailBaudilio Arthur MD Primary Care Provider Jackson Lee Unavailable UnavailBaudilio Arthur MD Primary Care Provider Unavailable Primary Care Provider Unavailleesa palma PROVIDER, UNKNOWN Referring Unavailable DEMETRIS STONE Attending Unavailleesa Pa, PCP Primary Care Unavailable Jackson Lee Unavailable UnavailBaudilio Arthur MD Primary Care Provider Jackson Lee Unavailable Unavaila ble Unavailable Primary Care Provider UnavailRAF Rosenthal Referring Unavailable LINDEN FUENTES Referring Unavailable OSMAN MCCORMACK Attending Unavailable RAF HUTSON Referring Unavailable Jackson Lee MD Unavailable [phone] Unavailable Primary Care Provider UnavailGio Ureña Primary Care Provider Baudilio Sultana MD Primary Care Provider Gio Harvey Primary Care Provider [phone] GIO HARVEY Primary Care Unavailable ISAAC CHICAS Attending Unavailable GLORIA BANGURA Attending Unavailable GIO HARVEY Primary Care Unavailable Александр JHA Attending Unavailable CUBA ANNA Attending Unavailable WESTON, GIO Primary Care Unavailable ISAAC CHICAS Attending Unavailable GLORIA BANGURA Referring Unavailable ANNA, CUBA R Referring Unavailable WESTON, GIO Primary Care Unavailable JANUSZ, Александр Referring Unavailable ANNA, CUBA R Referring Unavailable ANNA, CUBA R Referring Unavailable WESTON, GIO Primary Care Unavailable ISAAC CHICAS Attending Unavailable Raf Casey MD Primary Care Provider LI, RAF Abiodun Primary Care Unavailable LI, RAF L Primary Care Unavailable SAGE LOERA Attending UnavailMABLE Espinoza Admitting Unavailable LULA, GENE A Attending Unavailable LI, RAF L Primary Care Unavailable LI, RAF L Primary Care Unavailable SAGE LOERA Referring UnavailMENDEL Peterson Attending Unavailable LI, RAF L Primary Care Unavailable STEVEN PELAEZ Attending Unavailable LI, RAF L Primary Care Unavailable TESTSTEVEN MOSLEY Referring Unavailable LULA, GENE A Attending Unavailable LI, RAF L Primary Care Unavailable LULA, GENE A Attending Unavailable KYMBERLY, RAF L Primary Care Unavailable LULA, GENE A Attending Unavailable LI, RAF L Primary Care Unavailable LI, RAF L Primary Care Unavailable LULA, GENE A Attending Unavailable LULA, GENE A Attending Unavailable LI, RAF L Primary Care Unavailable LULA, GENE A Attending Unavailable LI, RAF L Primary Care Unavailable LULA, GENE A Attending Unavailable LI, RAF L Primary Care Unavailable LULA, GENE A Attending Unavailable LI, RAF L Primary Care Unavailable LULA, GENE A Attending Unavailable LI, RAF L Primary Care Unavailable STEVEN PELAEZ Referring Unavailable LI, RAF L Primary Care Unavailable Allergies Allergy Classification Reported Allergen(s) Allergy Type Date of Onset Reaction(s) Facility (20 sources) cephalexin; Translations: [CEPHALEXIN] Drug Allergy 5 Itching [facility] Repository (20 sources) ciprofloxacin; Translations: [CIPROFLOXACIN] Drug Allergy 1 Rash [facility] Repository (20 sources) erythromycin; Translations: [ERYTHROMYCIN] Drug Allergy 5 Itching [facility] Rep[facility] (20 sources) naproxen; Translations: [NAPROXEN] Drug Allergy 5 Intolerance [facility] Repository (20 sources) PARoxetine; Translations: [PAROXETINE HCL] Drug Allergy 5 Mental Status Change [facility] Repository (20 sources) Penicillins; Translations: [PENICILLINS] Propensity to adverse reactions to drug (disorder) 1 Hives, Unknown, Other [facility] Repository (20 sources) PROMETHAZINE-PHE NYLEPHRINE; Translations: [PROMETHAZINE-PH ENYLEPHRINE] Propensity to adverse reactions to drug (disorder) 5 Mental Status Change, Other [facility] Repository (4 sources) OTHER; Translations: [OTHER] Propensity to adverse reactions (disorder) 2 AOF [facility] Repository (20 sources) HMG-CoA reductase inhibitor; Translations: [[id number] REDUCTASE INHIBITORS] Drug Intolerance 9 Myalgia [facility] Work Phone: (20 sources) paper tape [Other] Propensity to adverse reactions 2 Intolerance [facility] Work Phone: (1 source) Cephalexin Drug Allergy 1 Unknown [facility] Work Phone: (1 source) Erythromycin Drug Allergy 1 Unknown [facility] Work Phone: (1 source) Promethazine Drug Allergy 1 Unknown [facility] Work Phone: (1 source) Ygdwfcy-Dqc-Pdb Reductase Inhibitor Propensity to adverse reactions 1 Myalgias [facility] Work Phone: (1 source) PAPER TAPE Propensity to adverse reactions 1 Rash [facility] Work Phone: (18 sources) HMG-CoA reductase inhibitor Drug Intolerance 9 Myalgia [facility] Work Phone: (3 sources) Adhesive Tape Propensity to adverse reactions to drug 2 Unknown [facility] (5 sources) Cheese; Translations: [CHEESE] Propensity to adverse reactions to drug 2 Diarrhea, Nausea And Vomiting, GI Upset [facility] (1 source) Hmg-Coa Reductase Inhibitors (Statins) Propensity to adverse reactions to drug 2 [facility] Work Phone: (20 sources) Promethazine; Translations: [PROMETHAZINE] Drug Allergy 9 Unknown, Intolerance [facility] Work Phone: (20 sources) PARoxetine; Translations: [PAROXETINE] Drug Allergy 9 Unknown, Intolerance [facility] (20 sources) 5-Alpha Reductase Inhibitors Propensity to adverse reactions 3 [facility] (11 sources) Adhesive Tape-Silicones; Translations: [ADHESIVE TAPE-SILICONES] Drug Allergy 3 Unknown, Rash [facility] (11 sources) Adhesive Tape Propensity to adverse reactions 4 [facility] (7 sources) Wound Dressing Adhesive Drug Allergy 3 Unknown [facility] (9 sources) Adhesive Tape; Translations: [ADHESIVE TAPE (ROSINS)] Propensity to adverse reactions to substance 1 Rash [facility] Work Phone: (2 sources) Adhesive agent; Translations: [ADHESIVE] Propensity to adverse reactions to drug (disorder) 2 [facility] Other [place] [facility] Medications Current Medications Medication Drug Class(es) Dates Sig (Normalized) Sig (Original) acetaminophen 500 mg oral tablet (15 sources) Start: 09-28-2024 take 2 tablets by mouth every six hours as needed acetaminophen (TYLENOL) 500 mg tablet Take 2 tablets by mouth every 6 hours as needed for pain or fever (specify temp.). 09/28/2024 Active Start: 12-15-2023 End: 12-15-2023 650 mg, Oral, Once, On Thu at 1830, For 1 dose, Maximum dose of acetaminophen is 4000 mg from all sources in 24 hours. Start: 09-06-2022 End: 09-06-2022 acetaminophen (Tylenol) tabl et 650 mg Start: 03-08-2022 acetaminophen (OFIRMEV) infusion 1,000 mg Start: 03-08-2022 acetaminophen (TYLENOL) tablet 650 mg Start: 03-08-2022 take 1000 mg by mout h twice daily as needed, then take 4000 mg by mouth every twenty-four hours as needed 1,000 mg, Oral, 2 TIMES DAILY PRN, Starting on 03/08/22 at 1646, Until Discontinued, Pain Mild (1-3) Maximum dose of acetaminophen is 4000 mg from all sources in 24 hours. take 2 tablets by mo [facility] twice daily as needed for pain acetaminophen (TYLENOL) 500 MG tablet Take 1,000 mg by mouth 2 times daily as needed for Pain 0 Active albuterol 0.83 mg/ml inhalation solution (8 sources) beta2-Adrenergic Agonist take 3 mL by inhalation every six hours as needed albuterol (PROVENTIL) 2.5 mg /3 mL (0.083 %) nebulizer solution 3 mL as needed Inhalation every 6 hrs Active Comment on above: 3 mL as needed Inhal ation every 6 hrs aluminum hydroxide 40 mg/ml / magnesium hydroxide 40 mg/ml / simethicone 4 mg/ml oral suspension (1 source) Start: aluminum & magnesium hydroxide-simethic one (MAALOX) 200-200-20 MG/5ML suspension 30 mL amoxicillin 875 mg / clavulanate 125 mg oral tablet (2 sources) Penicillin-class Antibacterial Start: End: take 1 tablet by mouth every twelve hours amoxicillin-clavul anate (AUGMENTIN) 875-125 MG per tablet Take 1 tablet by mouth every 12 hours for 8 doses 8 tablet 0 03/11/2022 03/15/2022 Active Start: 03-10-2022 End: 03-15-2022 amoxicillin-clavulanate (AUG MENTIN) 875-125 MG per tablet 1 tablet aspirin 81 mg delayed release oral tablet (20 sources) Platelet Aggregation Inhibitor, Nonsteroidal Anti-inflammatory Drug Start: 08-12-2017 take 1 tablet by mouth once daily aspirin, enteric coated (ASPIR-LOW) 81 mg EC tablet Take 1 tablet by mouth once daily. 08/12/2017 Active Comment on above: [facility] benzonatate 100 mg oral capsule (9 sources) Non-narcotic Antitussive Start: 09-28-2024 take 1 capsule by mouth every eight hours as needed benzonatate (TESSALON PERLE) 100 mg capsule Take 1 capsule by mouth three times a day as needed for cough. 09/28/2024 Active Start: 07-10-2024 End: 07-17-2024 take 1 capsule by mouth every eight hours benzonatate (Tessalon) 100 MG capsule Take 1 capsule (100 mg) by mouth every 8 hours for 7 days. Do not crush or chew. 21 capsule 07/10/2024 07/17/2024 Active Start: 04-13-2016 End: 05-26-2019 take 200 mg by mouth three times daily as needed Benzonatate Discontinued 200 MG PO 3 TIMES DAILY NEEDED April 13, 2016 7:44pm May 26, 2019 2:12pm Calcium (1 source) Phosphate Binder, Calcium Start: 06-12-2019 Calcium Carb-D3-Mag [id number] Active 1 EACH PO DAILY June 12, 2019 5:53pm calcium carbonate/vitami n D2 (CALCIUM 600 WITH VITAMIN D ORAL) (20 sources) take 1 tablet by mouth once daily calcium carbonate/vitamin D2 (CALCIUM 600 WITH VITAMIN D ORAL) Take 1 tablet by mouth once daily. Active take 1 tablet by mouth once henrietta y calcium carbonate/vitamin D2 (CALCIUM 600 WITH VITAMIN D ORAL) Take 1 tablet by mouth once daily. 0 Active Comment on above: Take 1 tablet by rajan th once daily. cholecalciferol 0.05 mg oral tablet (20 sources) Vitamin D Start: 9 take 2000 [IU] by mouth once daily Cholecalciferol (Vitamin D3) Active 2000 UNIT PO DAILY May 26, 2019 2:11pm take 1 capsule by mouth once anna ly cholecalciferol (Vitamin D-3) 50 MCG (1999 UT) capsule Take 2,000 Units by mouth daily. Active Comment on above: Take 1 capsule by mo ut once daily. clindamycin 300 mg oral capsule (4 sources) Lincosamide Antibacterial Start: 12-15-19 24 End: 12-25-19 24 clindamycin (Cleocin) 300 MG capsule Take 1 capsule (300 mg) by mouth in the morning and 1 capsule (300 mg) at noon and 1 capsule (300 mg) in the evening and 1 capsule (300 mg) before bedtime. Do all this for 10 days. 40 capsule 12/15/2023 12/25/2023 Active collagenase 0.25 unt/mg topical ointment (1 source) Collagen-specific Enzyme Start: 03-09-20 22 collagenase ointment COMPOUNDED PRESCRIPTION (20 sources) Start: 04-28-20 14 COMPOUNDED PRESCRIPTION Indications: Other pulmonary embolism and infarction , Other specified infantile cerebral palsy , Edema , Diarrhea , Knee joint replacement status Hospital bed all electric with adjustable head and feet. 415.19; 343.8; 782.3; 787.91; V43.65 1 Each 0 04/28/2014 Active Comment on above: Hospital bed all monique ctric with adjustable head and feet. 415.19; 343.8; 782.3; 787.91; V43.65 doxycycline hyclate 100 mg oral capsule (3 sources) Tetracycline-class Drug Start: 03-10-20 End: 03-15-20 take 1 capsule by mouth every twelve hours doxycycline hyclate (VIBRAMYCIN) 100 MG capsule Take 1 capsule by mouth every 12 hours for 8 doses 8 capsule 0 03/11/2022 03/15/2022 Active Start: 06-30-2017 End: 05-26-2019 take 100 mg by mouth twice daily Doxycycline Monohydrate Discontinued 100 MG PO TWICE A DAY 10 June 30, 2017 11:44am May 26, 2019 2:12pm escitalopram 5 mg oral tablet (20 sources) Serotonin Reuptake Inhibitor Start: 10-06-2022 take 1 tablet by mouth once daily escitalopram (Lexapro) 5 MG tablet take 1 tablet by mouth once daily with 10 milligram to EQUAL 15MG FOR ANXIETY 10/06/2022 Active Start: 08-31-2022 take 1 tablet by rajan th in the morning escitalopram (Lexapro) 10 MG tablet Take 10 mg by mouth in the morning. 08/31/2022 Active Comment on above: Take 10 mg by mouth once daily. take 1 tablet by rajan th once daily with 10 milligram to EQUAL 15MG FOR ANXIETY FLUoxetine 20 mg oral capsule (6 sources) Serotonin Reuptake Inhibitor Start: 09-29-2024 take 1 capsule by mouth once daily FLUoxetine (PROZAC) 20 mg capsule Take 1 capsule by mouth once daily. 90 capsule 09/29/2024 Active folic acid 1 mg oral tablet (20 sources) Start: 04-15-2023 take 1 tablet by mouth once folic acid 1 mg tablet Take 1 tablet by mouth every afternoon. 04/15/2023 Active Comment on above: Take 1 tablet by rajan th every afternoon. gabapentin 100 mg oral capsule (20 sources) Anti-epileptic Agent Start: 09-28-2024 End: 10-28-2024 take 3 tablets by mouth three times daily gabapentin 100 mg tab Indications: Type 2 diabetes, controlled, with neuropathy (HCC) Take 3 tablets by mouth three times a day for 30 days. 09/28/2024 Active Start: 05-26-2019 End: 01-20-2022 take 1 tablet by mouth three times daily gabapentin (NEURONTIN) 600 mg tablet Take 1 tablet by mouth three times daily for 180 days. 270 tablet 1 01/14/2021 07/24/2021 Discontinued Start: 06-06-2014 End: 05-26-2019 take 800 mg by mouth three times daily at mealtime Gabapentin Discontinued 800 MG PO 3 TIMES DAILY WITH MEALS June 06, 2014 1:41pm May 26, 2019 2:08pm gabapentin (Neur ontin) 300 MG capsule 1 tablet Orally three ti,es a day Active Comment on above: Take 1 tablet by rajan th three times daily for 180 days. 150 ml glucose 50 mg/ml injection (3 sources) Start: 03-08-2022 15 g, Oral, PRN, Starting on 03/08/22 at 1645, Until Discontinued, Low blood sugar If blood glucose less than 50 mg/dL and patient ALERT and TOLERATING PO, give 2 tubes glucose gel. If blood glucose less than 70 mg/dL and patient ALERT and TOLERATING PO, give 1 tube glucose gel. Repeat blood glucose in 15 minutes. If blood glucose is less than 70 mg/dL, repeat treatment and recheck blood glucose in 15 minutes x2 and notify provider. Start: 03-08-2022 12.5 g, IntraV ENous, PRN, Starting on 03/08/22 at 1645, Until Discontinued, Low blood sugar, Blood glucose less than 70 mg/dL and patient NOT ALERT or NPO. If patient does not respond within 5 minutes, repeat dose x1. Start D5W at 100 mL/hour until ordering provider can be reached. Repeat blood glucose in 15 minutes. If blood glucose is less than 70 mg/dL, repeat treatment and recheck blood glucose in 15 minutes x2. If using Glucostabilizer, dose as instructed per system. Start: 03-08-2022 100 mL/hr, Int raVENous, PRN, Low blood sugar, Starting on 03/08/22 at 1645 Start infusion following administration of dextrose 50% or glucagon. hydroxychloroquine sulfate 200 mg oral tablet (20 sources) Antimalarial, Antirheumatic Agent Start: 04-05-2023 hydrOXYchloroQUINE (PLAQUENIL) 200 mg tablet 04/05/2023 Active Start: 03-09-2022 take 1 tablet by rajan twice daily 200 mg, Oral, 2 TIMES DAILY, First dose on 03/09/22 at 1400, Until Discontinued Do not crush or divide film-coated tablets Start: 06-06-2014 End: 05-26-2019 take 200 mg by mouth twice daily at mealtime Hydroxychloroquine Discontinued 200 MG PO TWICE DAILY WITH MEALS June 06, 2014 1:41pm May 26, 2019 2:12pm hydrOXYzine hydrochloride 25 mg oral tablet (20 sources) Antihistamine Start: 09-28-2024 take 1 tablet by mouth twice daily hydrOXYzine HCl (ATARAX) 25 mg tablet Take 1 tablet by mouth two times a day. 09/28/2024 Active take 1 capsule by mo [facility] every eight hours as needed hydrOXYzine pamoate (VISTARIL) 25 mg capsule Take 25 mg by mouth three times a day as needed for anxiety. Active ketoconazole 20 mg/ml topical cream (20 sources) Azole Antifungal Start: 01-23-2021 ketoconazole (NIZORAL) 2 % cream Indications: Erythema intertrigo Apply 1 application to affected area once daily. 60 g 2 01/23/2021 Active Comment on above: Apply 1 application to affected area once daily. levothyroxine sodium 0.15 mg oral tablet (20 sources) l-Thyroxine Start: 09-27-2021 End: 03-26-2022 take 1 tablet by mouth once daily for thyroid dysfunction levothyroxine (SYNTHROID) 150 mcg tablet Take 1 tablet by mouth once daily. Take on empty stomach. For thyroid 30 tablet 5 09/27/2021 Active Start: 08-16-2021 End: 09-27-2021 take 1 tablet by mouth once daily for thyroid dysfunction levothyroxine (SYNTHROID) 137 mcg tablet Indications: Acquired hypothyroidism TAKE 1 TABLET BY MOUTH ONCE DAILY ON AN EMPTY STOMACH FOR THYROID 30 tablet 11 08/16/2021 09/27/2021 Discontinued Start: 05-26-2019 End: 07-24-2021 take 1 tablet by mouth once daily for thyroid dysfunction levothyroxine (SYNTHROID) 125 mcg tablet Indications: Acquired hypothyroidism TAKE 1 TABLET BY MOUTH ONCE DAILY ON AN EMPTY STOMACH FOR THYROID 90 tablet 3 07/19/2020 07/24/2021 Discontinued Start: 06-26-2017 End: 05-26-2019 take 100 ug by mouth once daily Levothyroxine Disconti nued 100 MCG PO DAILY June 26, 2017 7:01pm May 26, 2019 2:08pm Comment on above: TAKE 1 TABLET BY RAJAN TH ONCE DAILY ON AN EMPTY STOMACH FOR THYROID Take 1 tablet by rajan th once daily. Take on empty stomach. For thyroid 24 hr metFORMIN hydrochloride 500 mg extended release oral tablet (20 sources) Biguanide Start: 09-08-2022 take 1 tablet by mouth twice daily metFORMIN ER (GLUCOPHAGE XR) 500 mg 24 hr tablet Take 500 mg by mouth twice daily. 09/08/2022 Active Start: 03-26-2021 End: 09-03-2022 take 1 tablet by mouth once daily at breakfast metFORMIN (GLUCOPHAGE) 850 mg tablet Take 1 tablet by mouth daily with breakfast. 90 tablet 3 09/03/2021 09/03/2022 Active Start: 08-20-2020 End: 03-26-2021 take 1 tablet by mouth twice daily metFORMIN (GLUCOPHAGE) 850 mg tablet Take 1 tablet by mouth twice daily. 270 tablet 1 01/14/2021 02/21/2021 Discontinued Start: 06-06-2014 End: 08-20-2020 take 850 mg by mouth three times daily Metformin Discontinued 850 MG PO THREE TIMES A DAY May 26, 2019 2:09pm August 20, 2020 2:08pm take 1 tablet by rajan th in the morning metFORMIN (Glucophage) 500 MG tablet Take 500 mg by mouth in the morning and 500 mg in the evening. Take with meals. Active Comment on above: Take 1 tablet by rajan th daily with breakfast. Take 500 mg by mouth twice daily. 24 hr metoprolol succinate 100 mg extended release oral tablet (20 sources) beta-Adrenergic Nisha Start: 05-09-2019 End: 07-24-2021 take 1 tablet by mouth once daily metoprolol succinate ER (TOPROL XL) 100 mg Take 1 tablet by mouth once daily. 90 tablet 07/24/2021 Active Start: 06-06-2014 End: 05-26-2019 take 100 mg by mouth once daily Metoprolol Succinate Discontinued 100 MG PO DAILY June 06, 2014 1:41pm May 26, 2019 2:57pm Comment on above: Take 1 tablet by rajan th once daily. miconazole nitrate 0.02 mg/mg topical powder (7 sources) Azole Antifungal Start: 09-28-2024 miconazole 2 % powder Apply 1 application to affected area two times a day. 09/28/2024 Active Start: 03-08-2022 apply 1 dose topical ly twice daily Topical, 2 TIMES DAILY, First dose on 03/08/22 at 2100 Apply to skin folds. Substituted for Nystatin (MICOSTATIN) powder. mirtazapine 30 mg oral tablet (20 sources) Start: 07-24-2021 take 1 tablet by mouth once daily at bedtime mirtazapine (REMERON) 30 mg tablet Indications: Depression, recurrent Take 1 tablet by mouth daily at bedtime. 90 tablet 3 07/24/2021 Active Start: 05-26-2019 End: 04-22-2021 take 1 tablet by mouth once daily at bedtime mirtazapine (REMERON) 30 mg tablet Indications: Depression, recurrent (HCC) Take 1 tablet by mouth daily at bedtime. 90 tablet 3 03/13/2020 04/22/2021 Discontinued Start: 06-06-2014 End: 05-26-2019 take 15 mg by mouth at bedtime Mirtazapine Discontinue d 15 MG PO AT BEDTIME June 06, 2014 1:41pm May 26, 2019 2:12pm Comment on above: Take 1 tablet by rajan th daily at bedtime. Multiple Vitamins-Minerals (THERAPEUTIC MULTIVITAMIN-MINERALS) tablet (1 source) take 1 tablet by mouth once daily Multiple Vitamins-Minerals (THERAPEUTIC MULTIVITAMIN-MINERALS) tablet Take 1 tablet by mouth daily 0 Active MULTIVITAMIN ORAL (20 sources) MULTIVITAMIN ORA L Indications: Diabetic ulcer 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 (HCC) Take by mouth. 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 OTC One A Day Womens 0 Active Comment on above: Take by mouth. OTC O ne A Day Womens Multivitamin preparation (1 source) Start: 05-26-20 19 take 1 tablet by mouth once daily Multivitamin Active 1 TABLET PO DAILY May 26, 2019 2:10pm mupirocin 0.02 mg/mg topical ointment (20 sources) RNA Synthetase Inhibitor Antibacterial Start: 03-04-20 mupirocin (BACTROBAN) 2 % ointment Apply to affected area once daily. APPLY TO AFFECTED AREA 03/04/2023 Active Start: 09-26-2021 End: 10-06-2021 mupirocin (BACTROBAN) 2 % cr eam Apply 1 application to affected area three times daily for 10 days. Location:foot 30 g 2 09/26/2021 10/06/2021 Active Start: 04-22-2021 Mupirocin Calc ium (Bactroban) 2 % Cream Active 1 APPLIC TOPICAL THREE TIMES A DAY April 22, 2021 10:10pm foot Comment on above: Apply 1 application to affected area three times daily for 10 days. Location:foot Apply to affected ar ea once daily. APPLY TO AFFECTED AREA nitroglycerin 0.4 mg sublingual tablet (20 sources) Nitrate Vasodilator Start: 05-26-2019 End: 07-24-2021 nitroglycerin sublingual (NITROQUICK) 0.4 mg SL tablet Dissolve 1 tablet under the tongue every 5 minutes as needed for chest pain. FOR CHEST PAIN. IF NO RELIEF CALL 911 1 Bottle of 25 3 07/24/2021 Active Comment on above: Dissolve 1 tablet un yasmin the tongue every 5 minutes as needed for chest pain. FOR CHEST PAIN. IF NO RELIEF CALL 911 nystatin 100 unt/mg topical powder (20 sources) Polyene Antifungal nystatin (Myc ostatin) cream Apply topically 3 times daily. Active nystatin (Mycost atin) 785375 UNIT/GM powder Apply topically 2 times daily. Active nystatin (MYCOSTATIN) POWD p owder (1 source) nystatin (MYCOST ATIN) POWD powder Apply topically 2 times daily as needed 0 Active Nystatin, Bulk, 10 billion u nit powd (8 sources) Nystatin, Bulk, 10 billion unit powd Apply to affected area. Active Nystatin, Bulk, 10 billion unit powd Apply to affected area. 0 Active Comment on above: Apply to affected ar ea. 2 ml ondansetron 2 mg/ml injection (1 source) Serotonin-3 Receptor Antagonist Start: ondansetron (ZOFRAN) injection 4 mg oxyCODONE hydrochloride 5 mg oral tablet (4 sources) Opioid Agonist Start: 5 End: take 1 tablet by mouth every eight hours as needed oxyCODONE IR (ROXICODONE) 5 mg immediate release tablet Indications: Acute pain of left knee , Fall at home, initial encounter , Acute pain of right shoulder , Closed fracture of proximal end of right humerus, unspecified fracture morphology, initial encounter Take 1 tablet by mouth every 8 hours as needed for up to 7 days. 09/28/2024 10/05/2024 Active Start: 01-04-2014 End: 01-07-2014 take 1 tablet by mouth every four hours as needed Oxycodone (Roxicodone) 5 MG tablet Discontinued 5 MG PO EVERY 4 HOURS NEEDED January 04, 2014 1:17pm January 07, 2014 9:25am polyethylene glycol 3350 85620 mg powder for oral solution (2 sources) Osmotic Laxative Start: 03-08-2022 End: 04-10-2022 take 17 g by mouth once daily as needed for constipation polyethylene glycol (GLYCOLAX) 17 g packet Take 17 g by mouth daily as needed for Constipation 527 g 1 03/11/2022 04/10/2022 Active prazosin 1 mg oral capsule (20 sources) alpha-Adrenergic Nisha Start: 04-07-2023 prazosin (MINIPRESS) 1 mg cap 2 mg. 04/07/2023 Active PT/INR test meter (COAGUCHEK XS PRO) misc (20 sources) Start: 08-03-2014 PT/INR test meter (COAGUCHEK XS PRO) misc Indications: Pulmonary embolism (HCC) Check Protime weekly. Dx: pulmonary embolism, V58.61 1 Each 0 08/03/2014 Active Comment on above: Check Protime weekly . Dx: pulmonary embolism, V58.61 ramipril 5 mg oral capsule (20 sources) Angiotensin Converting Enzyme Inhibitor Start: 05-26-2019 End: 07-24-2021 take 1 capsule by mouth once daily ramipril (ALTACE) 5 mg capsule Take 1 capsule by mouth once daily. 90 capsule 3 07/24/2021 Active take 1 capsule by mo ut every twenty-four hours ramipril (Altace) 5 MG capsule Take 1 capsule by mouth Every 24 hours. Active Comment on above: Take 1 capsule by mo uth once daily. 5 ml sodium chloride 9 mg/ml injection (7 sources) Start: 03-08-2022 0.9 % sodium chloride infusion Start: 03-08-2022 sodium chlorid e flush 0.9 % injection 5-40 mL Start: 03-08-2022 End: 03-08-2022 0.9 % sodium chloride IV pito us 2,898 mL Spirometers and Accessories gui (20 sources) Start: 09-29-2014 Spirometers an d Accessories gui Indications: Atelectasis Incentive spirometer. Deep breathe hourly while awake. 1 Device 0 09/29/2014 Active Comment on above: Incentive spirometer . Deep breathe hourly while awake. traZODone hydrochloride 50 mg oral tablet (20 sources) Serotonin Reuptake Inhibitor Start: 09-17-2022 take 3 tablets by mouth once daily in the evening traZODone (DESYREL) 50 mg tablet Take 150 mg by mouth every evening. 09/17/2022 Active Start: 09-17-2022 take 1 tablet by [facility] once daily in the evening traZODone (Desyrel) 50 MG tablet Take 50 mg by mouth every evening. 09/17/2022 Active Start: 03-08-2022 take 50 mg by mouth once daily 50 mg, Oral, NIGHTLY, First dose on 03/08/22 at 2100, Until Discontinued Comment on above: Take 50 mg by mouth every evening. vitamin b12 1 mg/ml injectable solution (20 sources) Vitamin B12 Start: 04-06-20 inject 1000 ug by intramuscular injection every 30 days 1,000 mcg, IntraMUSCular, EVERY 30 DAYS, First dose on 04/06/22 at 0900, Until Discontinued Start: 01-14-2021 End: 07-24-2021 inject 1 mL by intramuscular injection every month cyanocobalamin 1,000 mcg/mL Indications: B12 deficiency Inject 1 mL intramuscularly once every month. 3 mL 3 07/24/2021 Active Start: 08-20-2020 inject 100 ug by int ramuscular injection every month Cyanocobalamin (Vitamin B-12) Active 100 MCG IM EVERY MONTH August 20, 2020 2:06pm Start: 03-29-2020 End: 10-08-2022 inject 1 mL by intramuscular injection every week cyanocobalamin 1,000 mcg/mL Indications: B12 deficiency Inject 1 mL intramuscularly one time a week. 4 mL 5 03/29/2020 10/08/2022 Discontinued (Other) take 1 tablet by mouth once henrietta y cyanocobalamin (Vitamin B-12) 500 MCG tablet Take 500 mcg by mouth daily. Active cyanocobalamin 1 000 MCG/ML injection Inject 1,000 mcg into the muscle every 30 days Active Comment on above: Inject 1 mL intramus cularly one time a week. Inject 1 mL intramus cularly once every month. vitamin e 180 mg oral capsule (11 sources) take 1 capsule by mouth in the morning alpha tocopherol (Vitamin E) 400 units capsule Take 400 Units by mouth in the morning and 400 Units in the evening. Active warfarin sodium 1 mg oral tablet (20 sources) Vitamin K Antagonist Start: warfarin (COUMADIN) tablet 1 mg Start: 03-08-2022 warfarin (COUM ALBINA) tablet 5 mg Start: 09-18-2021 warfarin (COUM ALBINA) 5 mg tablet Indications: History of pulmonary embolism 7.5 mg Mon/Fri, 5 mg all other days or as directed 90 tablet 3 09/18/2021 Active Start: 09-18-2021 warfarin (COUM ALBINA) 2.5 mg tablet Indications: History of pulmonary embolism 7.5 mg Mon/Fri, 5 mg all other days or as directed 50 tablet 3 09/18/2021 Active Start: 09-03-2021 End: 09-18-2021 warfarin (COUMADIN) 5 mg tab let Indications: History of pulmonary embolism 5 mg daily or as directed 90 tablet 3 09/03/2021 09/18/2021 Discontinued Start: 2021 warfarin (COUM ALBINA) 5 mg tablet Indications: History of pulmonary embolism 2.5 mg once weekly. 5 mg all other days. 75 tablet 3 2021 Active Start: 07-24-2021 End: 2021 warfarin (COUMADIN) 5 mg tab let Indications: History of pulmonary embolism takes 5 per week 75 tablet 3 07/24/2021 2021 Discontinued (Adjust Sig - Block E-Cancel) Start: 11-29-2020 End: 09-18-2021 warfarin (COUMADIN) 2.5 mg t ablet Indications: History of pulmonary embolism Takes 2 per week 50 tablet 3 11/29/2020 09/18/2021 Discontinued Start: 11-29-2020 End: 04-22-2021 warfarin (COUMADIN) 5 mg tab let Indications: History of pulmonary embolism takes 5 per week 75 tablet 3 11/29/2020 04/22/2021 Discontinued Start: 05-26-2019 take 2 tablets by [facility] once daily Warfarin (Coumadin) 2.5 mg tablet Active 5 MG PO DAILY May 26, 2019 2:11pm Start: 06-06-2014 End: 05-26-2019 Warfarin Discontinued 2.5 MG PO SUTUWEFRSA June 06, 2014 1:41pm May 26, 2019 2:11pm Comment on above: Takes 2 per week 5 mg daily or as dir ected 7.5 mg Thu/Thu, 5 mg all other days or as directed 2.5 mg once weekly. 5 mg all other days. takes 5 per week 7.5 mg Thu/Thu, 5 mg all other days or as directed Completed/Discontinued Medications Medication Drug Class(es) Dates Sig (Normalized) Sig (Original) acetaminophen 325 mg / HYDROcodone bitartrate 5 mg oral tablet (20 sources) Opioid Agonist Start: 07-19-2023 End: 07-20-2023 HYDROcodone-acetam inophen ([place]) 5-325 MG per tablet 1 tablet Start: 08-20-2021 End: 10-26-2021 take 1 tablet by mouth every six hours as needed for pain HYDROcodone-acetaminophen (NORCO) 5-325 mg per tablet Indications: Brachial neuritis or radiculitis Take 1 tablet by mouth every 6 hours as needed for pain for up to 30 days. 90 tablet 09/26/2021 Active Start: 07-17-2021 End: 08-16-2021 take 1 tablet by mouth every six hours as needed for pain HYDROcodone-acetaminophen (NORCO) 5-325 mg per tablet Indications: Brachial neuritis or radiculitis Take 1 tablet by mouth every 6 hours as needed for pain for up to 30 days. 90 tablet 0 07/17/2021 08/16/2021 Active Start: 01-11-2021 End: 02-11-2021 take 1 tablet by mouth every six hours as needed for pain HYDROcodone-acetaminophen (NORCO) 5-325 mg per tablet Indications: Brachial neuritis or radiculitis Take 1 tablet by mouth every 6 hours as needed for pain for up to 30 days. 90 tablet 01/11/2021 02/11/2021 Discontinued Start: 06-06-2014 End: 06-30-2017 take 1 tablet by mouth every six hours as needed Hydrocodone-Acetaminophen Active 1 TABLE T PO EVERY 6 HOURS NEEDED June 30, 2017 11:51am Comment on above: Take 1 tablet by rajan th every 6 hours as needed for pain for up to 30 days. 24 hr buPROPion hydrochloride 300 mg extended release oral tablet (20 sources) Aminoketone Start: 10-06-2022 buPROPion XL (WELLBUTRIN XL) 300 mg 24 hr tablet 300 mg once daily. 0 10/06/2022 Active Start: 06-06-2014 End: 07-24-2021 take 1 tablet by mouth twice daily buPROPion SR (ZYBAN SR; WELLBUTRIN SR) 150 mg 12 hr tablet Take 1 tablet by mouth twice daily. 180 tablet 2 03/05/2020 07/24/2021 Discontinued take 1 tablet by rajan th once daily buPROPion SR (Wellbutrin SR) 150 MG 12 hr tablet Take 150 mg by mouth daily. Active Comment on above: Take 1 tablet by rajan th twice daily. 300 mg once daily. calcium carbonate 1250 mg / cholecalciferol 200 unt oral tablet (2 sources) Vitamin D Start: 2021 take 1 tablet by mouth once daily 1 tablet, Oral, DAILY, First dose on 03/08/22 at 1647, Until Discontinued cefepime (MAXIPIME) 2000 mg IVPB minibag (1 source) Start: 2021 End: 2021 take 2000 mg intravenously every eight hours cefepime (MAXIPIME) 2000 mg IVPB minibag 1 ml dexamethasone phosphate 10 mg/ml injection (2 sources) Corticosteroid Start: 2024 End: 2024 take 8 mg by mouth once 8 mg, Oral, Once, On 07/10/24 at 0020, For 1 dose famotidine 20 mg oral tablet (1 source) Histamine-2 Receptor Antagonist Start: 2013 End: 2020 take 20 mg by mouth twice daily Famotidine Discontinued 20 MG PO TWICE A DAY June 06, 2014 1:41pm August 20, 2020 2:09pm fluticasone propionate 0.05 mg/actuat metered dose nasal spray (20 sources) Corticosteroid Start: 2021 take 2 spray(s) nasal route once daily 2 spray, Each Nostril, DAILY, First dose on 03/08/22 at 1800, Until Discontinued Start: 05-04-2019 take 2 spray(s) by m outh once daily fluticasone (FLONASE) 50 mcg/actuation nasal spray Indications: Rhinitis Use 2 Sprays in each nostril once daily. Rinse mouth after use. 1 Bottle 11 05/04/2019 Active Start: 06-06-2014 Fluticasone Pr opionate Active 2 SPRAY NASAL DAILY June 06, 2014 1:41pm take 1 spray(s) nasa l route once daily fluticasone (Flonase) 50 MCG/ACT nasal spray Administer 1 spray into each nostril daily. Active take 2 spray(s) nasa l route once daily fluticasone (FLONASE) 50 MCG/ACT nasal spray 2 sprays by Each Nostril route daily 0 Active Comment on above: Use 2 Sprays in each nostril once daily. Rinse mouth after use. furosemide 20 mg oral tablet (4 sources) Loop Diuretic Start: 09-19-2014 End: 05-26-2019 take 20 mg by mouth once daily as needed Furosemide Discontinued 20 MG PO DAILY NEEDED September 19, 2014 2:35pm May 26, 2019 2:12pm take 1 tablet by rajan th once daily furosemide (LASIX) 80 mg tablet Take 1 tablet by mouth once daily. 0 Active End: 03-11-2022 take 1 tablet by mouth twice daily furosemide (LASIX) 20 MG tablet Take 20 mg by mouth 2 times daily 0 03/11/2022 Discontinued (Stop Taking at Discharge) Comment on above: Take 1 tablet by rajan th once daily. glucagon (rdna) 1 mg injection (3 sources) Antihypoglycemic Agent Start: 5 End: 5 inject 1 mg by intramuscular injection once 1 mg, IntraMUSCula r, Once, On 07/09/24 at 2325, For 1 dose Start: 03-08-2022 take 1 mL intravenou sly every hour 1 mg, IntraMUSCular, PRN, Starting on 03/08/22 at 1645, Until Discontinued, Low blood sugar, Blood glucose less than 70 mg/dL and patient NOT ALERT or NPO and does not have IV access. After administration, attempt intravenous access and start D5W at 100 mL/hr. Repeat blood glucose in 15 minutes x2 and notify provider. 12 hr guaiFENesin 600 mg extended release oral tablet (1 source) End: 03-11-2022 take 1 tablet by mouth twice daily as needed for congestion guaiFENesin (MUCINEX) 600 MG extended release tablet Take 600 mg by mouth 2 times daily as needed for Congestion 0 03/11/2022 Discontinued (Stop Taking at Discharge) 3 ml insulin glargine 100 unt/ml pen injector (1 source) Insulin Analog Start: 09-19-2014 End: 05-26-2019 Insulin Glargine Discontinued 30 UNITS SC AT BEDTIME September 19, 2014 2:35pm May 26, 2019 2:12pm insulin lispro 100 unt/ml injectable solution (3 sources) Insulin Analog Start: 03-08-2022 0-4 Units, SubCUTAneous, NIGHTLY, First dose on 03/08/22 at 2100, Until Discontinued If continuous tube feedings/TPN/NPO, give correction dose based on result, no reduction in dose. If eating or bolus tube feeding: Cor rective Bedtime Algorithm Gl ucose: Dose: 70-299 No Insulin 300-34 9 4 Units Over 349 4 Units and notify physician Start: 03-08-2022 0-8 Units, Sub CUTAneous, 3 TIMES DAILY WITH MEALS, First dose on 03/08/22 at 1700, Until Discontinued Medium Dose Corrective Algorithm Glucose: Dose: 70-199 No Insulin 200-249 2 Units 250-299 4 Units 300-349 6 Units Over 349 8 Units and notify physician Start: 06-06-2014 End: 05-26-2019 inject 10 [IU] by subcutaneous injection three times daily as needed Insulin Lispro Discontinued 10 UNIT SQ 3 TIMES DAILY NEEDED June 06, 2014 1:41pm May 26, 2019 2:12pm 10 ml lidocaine hydrochloride 10 mg/ml injection (3 sources) Antiarrhythmic, Amide Local Anesthetic Start: 10-19-2024 End: 10-19-2024 lidocaine (PF) 10 mg/mL (1 %) 3 mL injection (XYLOCAINE) Start: 10-19-2024 End: 10-19-2024 3 mL, Injection - FOR ORTHO USE ONLY, ONCE, 1 dose, Starting on Thu10/19/24 at 1043, Until Thu10/19/24 at 1043 Start: 09-28-2024 End: 10-03-2024 apply 1 dose transdermal route once daily lidocaine (SALONPAS) 4 % patch Apply 1 patch as directed once daily for 5 days. 5 patch 09/28/2024 10/03/2024 Active magnesium oxide 400 mg oral tablet (20 sources) Start: 03-09-2022 take 400 mg by mouth once daily before breakfast 400 mg, Oral, DAILY BEFORE BREAKFAST, First dose on 03/09/22 at 0700, Until Discontinued Start: 08-20-2020 take 500 mg by mouth once henrietta y Magnesium Oxide Active 500 MG PO DAILY August 20, 2020 2:07pm take 1 tablet by rajan th once daily Magnesium Oxide 500 mg tab Take 500 mg by mouth once daily. Active Comment on above: Take 500 mg by mouth once daily. melatonin 10 mg oral capsule (20 sources) Start: 03-08-2022 take 10 mg by mouth once daily 10 mg, Oral, NIGHTLY, First dose on 03/08/22 at 2100, Until Discontinued Start: 08-20-2020 take 10 mg by mouth at bedtime Melatonin Active 10 MG PO BEDTIME August 20, 2020 2:07pm Comment on above: Take 1 tablet by rajan th daily at bedtime. melatonin 10 mg / vitamin b6 10 mg extended release oral tablet (1 source) Start: 06-06-20 End: 08-21-19 take 150 mg by mouth three times daily Melatonin-Pyridoxine Hcl (B6) Discontinued 150 MG PO THREE TIMES A DAY June 06, 2014 1:41pm August 20, 2020 2:08pm nitrofurantoin, macrocrystals 25 mg / nitrofurantoin, monohydrate 75 mg oral capsule (2 sources) Nitrofuran Antibacterial Start: 02-04-20 nitrofurantoin monohydrate and macrocrystal (MACROBID) 100 mg capsule 1 ml triamcinolone acetonide 40 mg/ml injection (2 sources) Corticosteroid Start: 10-20-19 End: 10-20-19 triamcinolone acetonide 40 mg injection (KeNALog 40) Start: 10-19-2024 End: 10-19-2024 40 mg, Injection - FOR ORTHO USE ONLY, ONCE, 1 dose, Starting on Thu10/19/24 at 1043, Until Thu10/19/24 at 1043 vancomycin (VANCOCIN) 1500 m g in sodium chloride 0.9% 250 mL IVPB (2 sources) Start: 03-09-2022 End: 03-10-2022 vancomycin (VANCOCIN) 1500 m g in sodium chloride 0.9% 250 mL IVPB Start: 03-08-2022 End: 03-08-2022 vancomycin (VANCOCIN) 1500 m g in sodium chloride 0.9% 250 mL IVPB vancomycin (Vancocin) 2,000 mg in sodium chloride 0.9 % 500 mL IVPB (2 sources) Start: 12-15-2023 End: 12-15-2023 2,000 mg (rounded from 1,932 mg = 20 mg/kg 96.6 kg), IntraVENous, at 166.7 mL/hr, Administer over 180 Minutes, Once, On Thu12/15/23 at 1830, For 1 dose, Suspected Indication (Select all that apply): Skin and Soft Tissue Infection zolpidem tartrate 5 mg oral tablet (1 source) gamma-Aminobuty hai Acid-ergic Agonist Start: 06-06-2014 End: 05-26-2019 take 5 mg by mouth at bedtime as needed Zolpidem Discontinued 5 MG PO AT BEDTIME NEEDED June 06, 2014 1:41pm May 26, 2019 2:11pm Problems Active Problems Problem Classification Problem Date Documented Date Episodic/Chronic Acquired foot deformities (2 sources) Foot drop, left foot; Translations: [Foot drop, left foot] Onset: 2 Episodic Asthma (20 sources) Unspecified asthma, uncomplicated; Translations: [Asthma, unspecified type, unspecified] Onset: 3 04-18-2005 Chronic Chronic kidney disease (9 sources) Chronic kidney disease; Translations: [Chronic kidney disease, unspecified] Onset: 3 05-04-2023 Chronic Chronic ulcer of skin (13 sources) Non-pressure chronic ulcer of left heel and midfoot with fat layer exposed; Translations: [Pressure ulcer of other site, stage 3] Onset: 2 Chronic Coagulation and hemorrhagic disorders (11 sources) Thrombocytopenia, unspecified; Translations: [Lupus anticoagulant disorder] Onset: 2 Chronic Coronary atherosclerosis and other heart disease (20 sources) Atherosclerotic heart disease of [place] coronary artery without angina pectoris; Translations: [Coronary atherosclerosis] Onset: 7 05-25-2017 Chronic Deficiency and other anemia (20 sources) Anemia of chronic disease; Translations: [Anemia in other chronic diseases classified elsewhere] Onset: 1 08-30-2020 Chronic Deficiency and other anemia (2 sources) Anemia in other chronic diseases classified elsewhere; Translations: [Anemia in other chronic diseases classified elsewhere] Onset: 2 Chronic Diabetes mellitus with complications (20 sources) Type 2 diabetes mellitus; Translations: [Type 2 diabetes mellitus with diabetic neuropathy, unspecified] Onset: 7 Resolved: 9 05-06-2015 Chronic Disorders of lipid metabolism (20 sources) Pure hypercholesterolemia; Translations: [Pure hypercholesterolemia, unspecified] Onset: 4 Resolved: 2 07-08-2018 Chronic E Codes: Fall (20 sources) Fall on same level, unspecified, initial encounter; Translations: [Fall] Onset: 2 Resolved: 5 Episodic E Codes: Place of occurrence (1 source) Unspecified place in unspecified non-institutional (private) residence as the place of occurrence of the external cause; Translations: [Fall at home, initial encounter] Onset: 5 Episodic Fluid and electrolyte disorders (2 sources) Hypo-osmolality and hyponatremia; Translations: [Hypo-osmolality and hyponatremia] Onset: 2 Episodic Fracture of upper limb (1 source) Unspecified fracture of upper end of right humerus, initial encounter for closed fracture; Translations: [Closed fracture of proximal end of right humerus, unspecified fracture morphology, initial encounter] Onset: 5 Episodic Headache; including migraine (20 sources) Migraine with aura; Translations: [Migraine with aura, not intractable, without status migrainosus] Onset: 3 08-20-2012 Chronic Malaise and fatigue (4 sources) Asthenia; Translations: [Weakness] 09-30-2024 Episodic Mood disorders (20 sources) Chronic depressive personality disorder; Translations: [Dysthymic disorder] Onset: 0 04-18-2005 Chronic Mood disorders (2 sources) Mood disorders; Translations: [Depression, unspecified] Onset: 2 Nutritional deficiencies (9 sources) Vitamin D deficiency; Translations: [Vitamin D deficiency, unspecified] Onset: 3 05-04-2023 Chronic Osteoarthritis (20 sources) Osteoarthritis of bilateral acromioclavicular joints; Translations: [Primary osteoarthritis, right shoulder] Onset: 4 Resolved: 4 05-04-2023 Chronic Other aftercare (2 sources) [employer] (current) use of anticoagulants; Translations: [intermodal owner operator truck driver (current) use of anticoagulants] Onset: 2 Episodic Other aftercare (2 sources) intermodal owner operator truck driver (current) use of oral hypoglycemic drugs; Translations: [[employer] (current) use of oral hypoglycemic drugs] Onset: 2 Episodic Other aftercare (2 sources) intermodal owner operator truck driver (current) use of aspirin; Translations: [intermodal owner operator truck driver (current) use of aspirin] Onset: 2 Episodic Other aftercare (2 sources) [employer] (current) use of opiate analgesic; Translations: [intermodal owner operator truck driver (current) use of opiate analgesic] Onset: 2 Episodic Other bone disease and musculoskeletal deformities (2 sources) Disorder of skeletal system; Translations: [Disorder of bone, unspecified] Episodic Other circulatory disease (20 sources) Disorder of carotid artery; Translations: [Disorder of arteries and arterioles, unspecified] Onset: 3 08-20-2012 Chronic Other diseases of veins and lymphatics (20 sources) Peripheral venous insufficiency; Translations: [Venous insufficiency (chronic) (peripheral)] 04-18-2005 Episodic Other endocrine disorders (20 sources) Secondary hyperparathyroidism of nonrenal origin; Translations: [Secondary hyperparathyroidism, not elsewhere classified] Onset: 6 12-03-2005 Chronic Other endocrine disorders (2 sources) Hyperparathyroidism, unspecified; Translations: [Hyperparathyroidism, unspecified] Onset: 2 Chronic Other endocrine disorders (9 sources) Primary hyperparathyroidism; Translations: [Primary hyperparathyroidism] Onset: 3 05-04-2023 Chronic Other gastrointestinal disorders (2 sources) Diarrhea, unspecified; Translations: [Diarrhea, unspecified] Onset: 2 Episodic Other injuries and conditions due to external causes (2 sources) History of falling; Translations: [History of falling] Onset: 2 Episodic Other injuries and conditions due to external causes (2 sources) Unspecified injury of left lower leg, initial encounter; Translations: [Left knee injury, initial encounter] Onset: 5 Episodic Other liver diseases (20 sources) Steatosis of liver; Translations: [Fatty (change of) liver, not elsewhere classified] Onset: 0 04-15-2010 Chronic Other liver diseases (2 sources) Fatty (change of) liver, not elsewhere classified; Translations: [Fatty (change of) liver, not elsewhere classified] Onset: 2 Chronic Other lower respiratory disease (2 sources) Cough; Translations: [Acute cough] 07-10-2024 Episodic Other nervous system disorders (12 sources) Neuropathy; Translations: [Polyneuropathy, unspecified] Onset: 3 05-04-2023 Chronic Other nervous system disorders (2 sources) Other chronic pain; Translations: [Chronic pain of left ankle] Onset: 5 Chronic Other non-traumatic joint disorders (11 sources) Shoulder pain; Translations: [Pain in right shoulder] Onset: 3 Episodic Other non-traumatic joint disorders (2 sources) Pain in right hip joint; Translations: [Pain in right hip] 07-19-2023 Episodic Other non-traumatic joint disorders (1 source) Chronic pain of right upper limb; Translations: [Pain in right shoulder] 01-29-2021 Episodic Other non-traumatic joint disorders (4 sources) Pain in left knee; Translations: [Pain in joint, lower leg] Onset: 5 09-30-2024 Episodic Other non-traumatic joint disorders (2 sources) Chronic ankle pain; Translations: [Pain in left ankle and joints of left foot] 10-27-2024 Episodic Other non-traumatic joint disorders (4 sources) Instability of joint of left ankle; Translations: [Other instability, left ankle] 10-27-2024 Episodic Other non-traumatic joint disorders (1 source) Other instability, left ankle; Translations: [Ankle instability, left] Onset: 5 Episodic Other non-traumatic joint disorders (2 sources) Pain in left ankle and joints of left foot; Translations: [Chronic pain of left ankle] Onset: 5 Episodic Other nutritional; endocrine; and metabolic disorders (20 sources) Morbid obesity; Translations: [Morbid (severe) obesity due to excess calories] 04-18-2005 Chronic Other nutritional; endocrine; and metabolic disorders (20 sources) Obese class I; Translations: [Obesity, unspecified] Onset: 1 07-19-2020 Chronic Other nutritional; endocrine; and metabolic disorders (2 sources) Obesity, unspecified; Translations: [Obesity, unspecified] Onset: 2 Chronic Other nutritional; endocrine; and metabolic disorders (2 sources) Body mass index (BMI) 35.0-35.9, adult; Translations: [Body mass index [BMI] 35.0-35.9, adult] Onset: 2 Chronic Other nutritional; endocrine; and metabolic disorders (6 sources) Obese class II; Translations: [Obesity, Class II, BMI 35-39.9] Onset: 5 09-21-2024 Chronic Other nutritional; endocrine; and metabolic disorders (6 sources) Hypomagnesemia; Translations: [Hypomagnesemia] Onset: 5 09-25-2024 Chronic Other nutritional; endocrine; and metabolic disorders (1 source) Morbid (severe) obesity due to excess calories; Translations: [Morbid obesity (HCC)] Onset: 5 Chronic Other screening for suspected conditions (not mental disorders or infectious disease) (3 sources) Patient encounter status; Translations: [Encounter for screening mammogram for malignant neoplasm of breast] Onset: 2 Episodic Other skin disorders (20 sources) Hirsutism; Translations: [Hirsutism] 04-18-2005 Episodic Paralysis (20 sources) Cerebral palsy; Translations: [Cerebral palsy, unspecified] Onset: 7 04-04-2015 Chronic Peripheral and visceral atherosclerosis (9 sources) Peripheral vascular disease; Translations: [Peripheral vascular disease, unspecified] Onset: 3 05-04-2023 Chronic Pulmonary heart disease (9 sources) Chronic thromboembolic pulmonary hypertension; Translations: [Chronic thromboembolic pulmonary hypertension] Onset: 3 05-04-2023 Chronic Residual codes; unclassified (20 sources) Edema; Translations: [Edema, unspecified] 04-18-2005 Episodic Residual codes; unclassified (1 source) Swelling - edema - symptom; Translations: [Edema, unspecified] 04-18-2005 Episodic Residual codes; unclassified (1 source) Other specified health status; Translations: [Decreased activities of daily living (ADL)] Onset: 5 Episodic Sprains and strains (12 sources) Strain of calf muscle; Translations: [Strain of other muscle(s) and tendon(s) at lower leg level, unspecified leg, initial encounter] Onset: 3 05-04-2023 Episodic Systemic lupus erythematosus and connective tissue disorders (20 sources) Systemic lupus erythematosus; Translations: [Systemic lupus erythematosus, unspecified] Onset: 1 03-07-2020 Chronic Thyroid disorders (20 sources) Acquired hypothyroidism; Translations: [Hypothyroidism, unspecified] Onset: 5 04-25-2015 Chronic Unclassified (1 source) Unknown / UNK(Unknown) Onset: 8 Unclassified (1 source) Contact with and (suspected) exposure to COVID-19; Translations: [Contact with and (suspected) exposure to COVID-19] Onset: 2 Unclassified (20 sources) Traumatic hematoma; Translations: [Cephalohematoma] Onset: 3 09-06-2022 Unclassified (1 source) Acute cough; Translations: [Acute cough] Onset: 5 Unclassified (1 source) New Onset: 5 Past or Other Problems Problem Classification Problem Date Documented Date Episodic/Chronic trauma (20 sources) cephalhematoma; Translations: [Cephalhematoma due to injury] Onset: 09-06-2022 Episodic Coronary atherosclerosis and other heart disease (12 sources) Stented coronary artery; Translations: [Presence of coronary angioplasty implant and graft] Onset: 04-22-2008 Episodic Diabetes mellitus without complication (7 sources) Diabetes mellitus; Translations: [Type 2 diabetes mellitus without complications] Onset: 05-12-2011 Resolved: 11-08-2014 11-08-2014 Chronic Essential hypertension (12 sources) Essential (primary) hypertension; Translations: [Essential hypertension] Onset: 08-12-2017 Resolved: 03-07-2020 Chronic Headache; including migraine (11 sources) Headache; Translations: [Headache] Onset: 03-29-2007 Resolved: 09-26-2021 03-29-2007 Episodic Immunizations and screening for infectious disease (11 sources) Anti-nuclear factor positive; Translations: [Other and unspecified nonspecific immunological findings] Onset: 02-28-2010 Resolved: 09-26-2021 02-28-2010 Episodic Infective arthritis and osteomyelitis (except that caused by tuberculosis or sexually transmitted disease) (7 sources) Osteomyelitis; Translations: [Osteomyelitis, unspecified] Onset: 01-10-2011 Resolved: 09-29-2016 09-29-2016 Chronic Miscellaneous mental health disorders (7 sources) Psychalgia; Translations: [Pain disorder with related psychological factors] Onset: 09-02-2010 Resolved: 11-08-2014 11-08-2014 Chronic Mycoses (18 sources) Candidiasis; Translations: [Other sites of candidiasis] Onset: 05-04-2023 05-04-2023 Episodic Nonspecific chest pain (11 sources) Chest pain; Translations: [Other chest pain] Resolved: 09-26-2021 04-18-2005 Episodic Nutritional deficiencies (20 sources) Cobalamin deficiency; Translations: [Deficiency of other specified B group vitamins] Onset: 08-18-2019 08-18-2019 Episodic Open wounds of extremities (20 sources) Open wound of hand; Translations: [Laceration without foreign body of unspecified hand, initial encounter] Onset: 09-06-2022 Episodic Other connective tissue disease (11 sources) Muscle weakness of limb; Translations: [Other symptoms and signs involving the musculoskeletal system] Onset: 11-25-2016 Resolved: 09-26-2021 07-08-2018 Episodic Other connective tissue disease (13 sources) Recurrent falls ; Translations: [Repeated falls] Onset: 11-25-2016 Resolved: 09-26-2021 11-25-2016 Episodic Other connective tissue disease (4 sources) Repeated falls; Translations: [Repeated falls] Onset: 03-08-2022 Episodic Other connective tissue disease (7 sources) Thigh pain; Translations: [Pain in unspecified thigh] Onset: 03-07-2011 Resolved: 07-08-2018 07-08-2018 Episodic Other ear and sense organ disorders (9 sources) Wax in ear canal; Translations: [Impacted cerumen, unspecified ear] Onset: 05-04-2023 05-04-2023 Episodic Other injuries and conditions due to external causes (9 sources) Closed injury of head; Translations: [Unspecified injury of head, initial encounter] Onset: 05-04-2023 05-04-2023 Episodic Other injuries and conditions due to external causes (9 sources) Blister; Translations: [Other injury of unspecified body region, initial encounter] Onset: 05-04-2023 05-04-2023 Episodic Other lower respiratory disease (7 sources) Cough; Translations: [Cough] Onset: 09-09-2013 Resolved: 11-08-2014 11-08-2014 Episodic Other non-traumatic joint disorders (20 sources) Pain in right shoulder; Translations: [Pain in joint, shoulder region] Onset: 09-06-2022 05-04-2023 Episodic Other non-traumatic joint disorders (9 sources) Pain in unspecified knee; Translations: [Pain in joint, lower leg] Onset: 05-04-2023 05-04-2023 Episodic Other non-traumatic joint disorders (2 sources) Pain in right hip; Translations: [Pain in right hip] Onset: 07-19-2023 Episodic Other nutritional; endocrine; and metabolic disorders (9 sources) H/O: hypothyroidism; Translations: [Personal history of other endocrine, nutritional and metabolic disease] Onset: 05-04-2023 05-04-2023 Episodic Other upper respiratory infections (14 sources) Laryngitis; Translations: [Acute laryngitis] Onset: 09-09-2013 Resolved: 11-08-2014 11-08-2014 Episodic Pneumonia (except that caused by tuberculosis or sexually transmitted disease) (9 sources) Pneumonia; Translations: [Pneumonia, unspecified organism] Onset: 05-04-2023 05-04-2023 Episodic Pulmonary heart disease (20 sources) Pulmonary embolism; Translations: [Other pulmonary embolism without acute cor pulmonale] Onset: 08-11-2011 Resolved: 03-07-2020 06-17-2021 Episodic Residual codes; unclassified (7 sources) Family history of cancer of colon; Translations: [Family history of malignant neoplasm of digestive organs] Onset: 08-20-2012 Resolved: 11-08-2014 11-08-2014 Episodic Skin and subcutaneous tissue infections (20 sources) Cellulitis of left lower limb; Translations: [Cellulitis of left lower limb] Onset: 03-08-2022 Episodic Spondylosis; intervertebral disc disorders; other back problems (20 sources) Brachial neuritis; Translations: [Radiculopathy, cervical region] Onset: 01-29-2009 07-08-2018 Episodic Superficial injury; contusion (20 sources) Hematoma of scalp; Translations: [Contusion of scalp, initial encounter] Onset: 05-04-2023 05-04-2023 Episodic Unclassified (1 source) Contusion of right knee, initial encounter Unclassified (1 source) Contact with and (suspected) exposure to COVID-19; Translations: [Contact with and (suspected) exposure to COVID-19] Onset: 03-08-2022 Unclassified (1 source) Acute cough; Translations: [Acute cough] Onset: 07-09-2024 Unclassified (2 sources) Sprain of left ankle 10-27-2024 Urinary tract infections (10 sources) Urinary tract infection, site not specified; Translations: [Urinary tract infectious disease] Onset: 03-08-2022 Episodic Results Test Name Value Interpretation Reference Range Facility MRI ANKLE WO IVCON LTon 05-2 MRI ANKLE WO IVCON LT * * *Final Report* * * DATE OF EXAM: Nov 08 2024 11:35AM [id number] - MRI ANKLE WO IVCON LT / PROCEDURE REASON: multiple diagnoses * * * * Physician Interpretation * * * * RESULT: Left ankle MRI without contrast: HISTORY: Chronic ankle pain. TECHNIQUE: Routine MRI of the ankle including T1 weighted and inversion recovery sagittal, fat suppression proton T2-weighted coronal, T2-weighted axial and fat suppression proton density axial oblique imaging of the LEFT ankle was performed. COMPARISON: None RESULT: Cartilage: The tibiotalar joint cartilage and subtalar joint cartilage appears to be preserved. Ligaments: The talofibular ligaments, tibiofibular ligaments, calcaneofibular ligament and deltoid ligament all appear to be intact. Tendons: The Achilles tendon is diffusely thickened at the level of the distal tibia consistent with tendinosis. The medial flexor tendons, peroneal tendons and extensor tendons are intact. Joint fluid: Physiologic quantity of joint fluid. Bone marrow: No evidence of fracture nor marrow replacement process. Plantar Aponeurosis: Plantar aponeurosis is within normal limits. Sinus Tarsi: Sinus tarsi is within normal limits. Muscle: Prominent fatty atrophy of the visualized foot musculature is demonstrated. Tarsal tunnel: Tarsal tunnel is within normal limits. Other: No other significant abnormality identified. IMPRESSION: 1. ACHILLES TENDINOSIS. 2. DIFFUSE ATROPHY OF THE LEFT FOOT MUSCULATURE. 3. NO EVIDENCE OF LIGAMENTOUS SPRAIN. Transcribe Date/Time: Nov 09 2024 7:52A Dictated by: YVETTE DE LUNA MD This examination was interpreted and the report reviewed and electronically signed by: YVETTE DE LUNA MD on Nov 09 2024 7:56AM EST Thank you for allowing us to participate in the care of your patient. Should there be any questions regarding this interpretation, please call . If you are unable to reach us at the number above, please feel free to contact [facility] at [phone]. [id number] [facility] CNOVon 10-27-2024 CNOV Office Visit (PODIWS ) RANDOLPH HUNTER ([id number]) 1950 F Date Time Provider Department 10/27/24 11:15 AM STEVEN PELAEZIWS During your visit today, we recorded the following information about you: Del Isbell RN 10/27/2024 11:29 AM Signed Patient presents with: Left Foot - Established Patient, Pain Left Ankle - Established Patient, Pain AMB ROOMING INTAKE FLOWSHEET DATA Pain Pain Level: 5 Pain Location: Other: See Comment (left foot/ankle) Description: Sharp, Aching, Throbbing Duration Amount of Time: 2 Duration Units: Months Frequency: Intermittent Intervention/Comfort measure: Relaxation, Reposition Patient presents for left foot/ankle pain. States that she fell 2 months ago and injured herself. She is currently at [facility]. Has a history of cerebral palsy with left sided decreased sensation, but states that when she stands or puts pressure on the foot she is still having pain. XRay of left ankle was done 09/18/24. ИРИНА 12/15/23 Steven Pelaez 10/27/2024 11:25 AM Signed You have a diagnosed left ankle sprain with associated instability. An x-ray of your left ankle and leg was ordered today to reassess the injury. An MRi of left ankle has been ordered. due to failed improvement with therapy, pursue mri Continue with your current physical, occupational, and speech therapies at the rehab center. Steven Pelaez 10/27/2024 11:29 AM Signed Subjective Simran is a 74-year-old female with a history of cerebral palsy, presenting for left ankle pain and instability following a fall in August. Left Ankle Pain and Instability: - Fall occurred at the end of August while transferring from a lift chair to a wheelchair; left leg and ankle were twisted behind her. - Visited the ED twice on September 18 due to inability to stand and perform ADLs; was admitted for 15 days. - Currently in a rehab center, receiving PT, OT, and speech therapy. - Reports persistent pain on the outer left ankle radiating upwards when standing; describes pain as feeling like "somebody's constantly jabbing at the ankle. - Unable to walk; can stand but cannot hold herself up. - Concerns about potential torn ligament. - History of knee surgery with nerve damage affecting mobility. Cerebral Palsy: - Affects balance and mobility; has difficulty standing. Musculoskeletal: (+) left ankle pain, (+) left ankle instability Neurological: (+) difficulty standing, (+) inability to walk PAST MEDICAL HISTORY Diagnosis Date CAD (coronary artery disease) Carotid artery stenosis Cerebral palsy (HCC) Chronic depressive personality disorder Diarrhea Dyslipidemia Edema bilat Hirsutism Hypertension Hypothyroid Insomnia Migraines Morbid obesity (HCC) Osteomyelitis of foot (HCC) Pulmonary embolism (HCC) Pulmonary embolism (HCC) 2011 SLE (systemic lupus erythematosus) (HCC) Type II or unspecified type diabetes mellitus without mention of complication, uncontrolled Unspecified asthma(493.90) Unspecified venous (peripheral) insufficiency Current Outpatient Medications Medication Sig Dispense Refill acetaminophen (TYLENOL) 500 mg tablet Take 2 tablets by mouth every 6 hours as needed for pain or fever (specify temp.). benzonatate (TESSALON PERLE) 100 mg capsule Take 1 capsule by mouth three times a day as needed for cough. gabapentin 100 mg tab Take 3 tablets by mouth three times a day for 30 days. FLUoxetine (PROZAC) 20 mg capsule Take 1 capsule by mouth once daily. 90 capsule hydrOXYzine HCl (ATARAX) 25 mg tablet Take 1 tablet by mouth two times a day. miconazole 2 % powder Apply 1 application to affected area two times a day. hydrOXYzine pamoate (VISTARIL) 25 mg capsule Take 25 mg by mouth three times a day as needed for anxiety. hydrOXYchloroQUINE (PLAQUENIL) 200 mg tablet mupirocin (BACTROBAN) 2 % ointment Apply to affected area once daily. APPLY TO AFFECTED AREA prazosin (MINIPRESS) 1 mg cap 2 mg. folic acid 1 mg tablet Take 1 tablet by mouth every afternoon. Nystatin, Bulk, 10 billion unit powd Apply to affected area. traZODone (DESYREL) 50 mg tablet Take 150 mg by mouth every evening. metFORMIN ER (GLUCOPHAGE XR) 500 mg 24 hr tablet Take 500 mg by mouth twice daily. warfarin (COUMADIN) 5 mg tablet 7.5 mg Mon/Fri, 5 mg all other days or as directed 90 tablet 3 nitroglycerin sublingual (NITROQUICK) 0.4 mg SL tablet Dissolve 1 tablet under the tongue every 5 minutes as needed for chest pain. FOR CHEST PAIN. IF NO RELIEF CALL 911 1 Bottle of 25 3 ramipril (ALTACE) 5 mg capsule Take 1 capsule by mouth once daily. 90 capsule 3 metoprolol succinate ER (TOPROL XL) 100 mg Take 1 tablet by mouth once daily. 90 tablet 0 Syringe with Needle, Disp, (MONOJECT TB SAFETY SYRINGE) 1 mL 25 gauge x 5/8" Use as directed once a month. 12 Each 0 blood sugar diagnost (more content not included)... Normal [facility] XR ANKLE 3V AP/LAT/OBL LTon 10-27-2024 XR ANKLE 3V AP/LAT/OBL LT * * *Final Report* * * DATE OF EXAM: Oct 27 2024 12:04PM [id number] - XR ANKLE 3V AP/LAT/OBL LT / PROCEDURE REASON: multiple diagnoses * * * * Physician Interpretation * * * * TITLE: XR ANKLE 3V AP/LAT/OBL LT, XR TIBIA FIBULA 2V AP/LAT LT CLINICAL INDICATION: Ankle sprain and instability TECHNIQUE: 3 view radiographic study of the left ankle. 2 view radiographic study of the left tibia/fib COMPARISON: Radiograph dated 09/18/2024 FINDINGS: Left ankle: No acute fracture or dislocation identified. Talar dome and ankle mortise appear intact. Atherosclerotic calcification of the vasculature. Soft tissue swelling. Left tibia/fibula: No acute fracture or dislocation identified. Atherosclerotic calcification of the vasculature. Soft tissue swelling. IMPRESSION: Soft tissue swelling. No radiographic evidence of acute osseous injury Pharmaceutical Operator: [facility] Transcribe Date/Time: Nov 01 2024 4:44P Dictated by : JAYDEN JOVEL MD This examination was interpreted and the report reviewed and electronically signed by: JAYDEN JOVEL MD on Nov 01 2024 4:45PM EST [id number] Normal [facility] XR TIBIA FIBULA 2V AP/LAT LT on 10-27-2024 XR TIBIA FIBULA 2V AP/LAT LT * * *Final Report* * * DATE OF EXAM: Oct 27 2024 12:04PM [id number] - XR TIBIA FIBULA 2V AP/LAT LT / PROCEDURE REASON: multiple diagnoses * * * * Physician Interpretation * * * * TITLE: XR ANKLE 3V AP/LAT/OBL LT, XR TIBIA FIBULA 2V AP/LAT LT CLINICAL INDICATION: Ankle sprain and instability TECHNIQUE: 3 view radiographic study of the left ankle. 2 view radiographic study of the left tibia/fib COMPARISON: Radiograph dated 09/18/2024 FINDINGS: Left ankle: No acute fracture or dislocation identified. Talar dome and ankle mortise appear intact. Atherosclerotic calcification of the vasculature. Soft tissue swelling. Left tibia/fibula: No acute fracture or dislocation identified. Atherosclerotic calcification of the vasculature. Soft tissue swelling. IMPRESSION: Soft tissue swelling. No radiographic evidence of acute osseous injury Pharmaceutical Operator: [facility] Transcribe Date/Time: Nov 01 2024 4:44P Dictated by : JAYDEN JOVEL MD This examination was interpreted and the report reviewed and electronically signed by: JAYDEN JOVEL MD on Nov 01 2024 4:45PM EST [id number] Normal [facility] PT panel Coag (PPP)on 2024 INR Coag (PPP) [Relative time] 2.3 {INR} High 0.9-1.3 [facility] Comment on above: Order Comment: Suzanne garcia Type: BLOOD SPECIMEN Ordering Facility: [facility] Address: [address] [place], [place] [address] Result Comment: Kaycee min K Antagonist (VKA) Therapeutic Range: INR 2 to 3 (Target INR of 2.5) Note: For patients treated with VKA drugs, such as warfarin, the [place] [employer] 2012 Guideline recommends a therapeutic INR range of 2 to 3 (target INR of 2.5). This recommendation includes high-risk patients with antiphospholipid syndrome with previous arterial or venous thromboembolism, current-generation mechanical or bioprosthetic aortic heart valve replacement. Note: Patients with mechanical aortic valve replacement and additional risk factors for thromboembolic events (atrial fibrillation, previous thromboembolism, LV dysfunction, hypercoagulable conditions) or an older generation mechanical AVR (i.e., ball in-Cage) or any mechanical MVR should have a INR therapeutic range of 2.5 to 3.5 (target INR of 3). Keegan GH, et al. Chest 2012, 141:7S-47S Roshni RA, et al. [facility] 2017, 70: 252-289 Performed By: #### 3 4528-0 #### [facility] CLIA [id number] [address] [place], [place] [id number] [place] PT Coag (PPP) [Time] 23.1 s High 9.7-13.0 [facility] Comment on above: Order Comment: Suzanne garcia Type: BLOOD SPECIMEN Ordering Facility: [facility] Address: [address] [place] [address] Performed By: #### 3 4528-0 #### [facility] CLIA [id number] [address] [place], [place] [id number] [place] PT panel Coag (PPP)on 2024 INR Coag (PPP) [Relative time] 3.8 {INR} High 0.9-1.3 [facility] Comment on above: Order Comment: Suzanne garcia Type: BLOOD SPECIMEN Ordering Facility: [facility] Address: [address] [place] [address] Result Comment: Kaycee min K Antagonist (VKA) Therapeutic Range: INR 2 to 3 (Target INR of 2.5) Note: For patients treated with VKA drugs, such as warfarin, the [place] [employer] 2012 Guideline recommends a therapeutic INR range of 2 to 3 (target INR of 2.5). This recommendation includes high-risk patients with antiphospholipid syndrome with previous arterial or venous thromboembolism, current-generation mechanical or bioprosthetic aortic heart valve replacement. Note: Patients with mechanical aortic valve replacement and additional risk factors for thromboembolic events (atrial fibrillation, previous thromboembolism, LV dysfunction, hypercoagulable conditions) or an older generation mechanical AVR (i.e., ball in-Cage) or any mechanical MVR should have a INR therapeutic range of 2.5 to 3.5 (target INR of 3). Keegan SOUZA, et al. Chest 2012, 141:7S-47S Roshni RA, et al. [facility] 2017, 70: 252-289 Performed By: #### 3 4528-0 #### [facility] CLIA [id number] [address] [place], [place] [id number] [place] PT Coag (PPP) [Time] 37.1 s High 9.7-13.0 [facility] Comment on above: Order Comment: Suzanne garcia Type: BLOOD SPECIMEN Ordering Facility: [facility] Address: [address] [place] [address] Performed By: #### 3 4528-0 #### [facility] CLIA [id number] [address] [place], [place] [id number] [facility] [place] CNOVon 10-19-2024 CNOV Office Visit (ORMDNA ) RANDOLPH HUNTER ([id number]) 1950 F Date Time Provider Department 10/19/24 9:30 AM MENDEL SHARMA ORDIANA During your visit today, we recorded the following information about you: Mendel Sharma PA-C 10/19/2024 10:43 AM Signed HISTORY OF PRESENT ILLNESS: Randolph is a 74 year old female. She is here for evaluation of Left knee pain. Was seen in ED on 09/18/[address] scan showing degenerative changes and a small knee effusion. Uses tylenol for pain control. Patient has cerebral palsy. Today she states her pain is intermittent throbbing 5/10. She currently she is taking Oxycodone for pain control. Reports left ankle pain as well. Recommended follow up with Dr. Pelaez as she has seen him in the past. PAIN EVALUATION 10/19/2024 0944 Pain Level: 5 Pain Location: Knee-Left Description: Throbbing Duration Amount of Time: -- 09/18/2024 Frequency: Intermittent Intervention/Comfort measure: Medication;Reposition;Relaxati on MEDICATIONS Current Outpatient Medications on File Prior to Visit Medication Sig acetaminophen (TYLENOL) 500 mg tablet Take 2 tablets by mouth every 6 hours as needed for pain or fever (specify temp.). benzonatate (TESSALON PERLE) 100 mg capsule Take 1 capsule by mouth three times a day as needed for cough. gabapentin 100 mg tab Take 3 tablets by mouth three times a day for 30 days. FLUoxetine (PROZAC) 20 mg capsule Take 1 capsule by mouth once daily. hydrOXYzine HCl (ATARAX) 25 mg tablet Take 1 tablet by mouth two times a day. miconazole 2 % powder Apply 1 application to affected area two times a day. hydrOXYzine pamoate (VISTARIL) 25 mg capsule Take 25 mg by mouth three times a day as needed for anxiety. albuterol (PROVENTIL) 2.5 mg /3 mL (0.083 %) nebulizer solution 3 mL as needed Inhalation every 6 hrs hydrOXYchloroQUINE (PLAQUENIL) 200 mg tablet mupirocin (BACTROBAN) 2 % ointment Apply to affected area once daily. APPLY TO AFFECTED AREA prazosin (MINIPRESS) 1 mg cap 2 mg. folic acid 1 mg tablet Take 1 tablet by mouth every afternoon. Nystatin, Bulk, 10 billion unit powd Apply to affected area. traZODone (DESYREL) 50 mg tablet Take 150 mg by mouth every evening. metFORMIN ER (GLUCOPHAGE XR) 500 mg 24 hr tablet Take 500 mg by mouth twice daily. levothyroxine (SYNTHROID) 150 mcg tablet Take 1 tablet by mouth once daily. Take on empty stomach. For thyroid HYDROcodone-acetaminophen (NORCO) 5-325 mg per tablet Take 1 tablet by mouth every 6 hours as needed for pain for up to 30 days. warfarin (COUMADIN) 5 mg tablet 7.5 mg Mon/Fri, 5 mg all other days or as directed mirtazapine (REMERON) 30 mg tablet Take 1 tablet by mouth daily at bedtime. nitroglycerin sublingual (NITROQUICK) 0.4 mg SL tablet Dissolve 1 tablet under the tongue every 5 minutes as needed for chest pain. FOR CHEST PAIN. IF NO RELIEF CALL 911 ramipril (ALTACE) 5 mg capsule Take 1 capsule by mouth once daily. metoprolol succinate ER (TOPROL XL) 100 mg Take 1 tablet by mouth once daily. Syringe with Needle, Disp, (MONOJECT TB SAFETY SYRINGE) 1 mL 25 gauge x 5/8" Use as directed once a month. blood sugar diagnostic ([employer] VERIO TEST STRIPS) test strip Test blood sugar(s) 3 times daily. Dx: Other DM Code E11.42 Insulin: Yes ketoconazole (NIZORAL) 2 % cream Apply 1 application to affected area once daily. Syringe with Needle, Safety 3 mL 23 gauge x 1" 1 Each as directed. Use one each with Vitamin B 12 injections weekly for 3 doses and then monthly. fluticasone (FLONASE) 50 mcg/actuation nasal spray Use 2 Sprays in each nostril once daily. Rinse mouth after use. Magnesium Oxide 500 mg tab Take 500 mg by mouth once daily. melatonin 10 mg tab Take 1 tablet by mouth daily at bedtime. aspirin, enteric coated (ASPIR-LOW) 81 mg EC tablet Take 1 tablet by mouth once daily. MULTIVITAMIN ORAL Take by mouth. OTC One A Day Womens Spirometers and Accessories gui Incentive spirometer. Deep breathe hourly while awake. PT/INR test meter (COAGUCHEK XS PRO) misc Check Protime weekly. Dx: pulmonary embolism, V58.61 COMPOUNDED PRESCRIPTION Hospital bed all electric with adjustable head and feet. 415.19; 343.8; 782.3; 787.91; V43.65 No current facility-administered medications on file prior to visit. ALLERGIES ALLERGIES Allergen Reactions Phenergan Vc [Prome* Mental Status Change Adhesive Tape (Bertha* Rash Paper tape, skin comes off. Adhesive Tape-Silic* Rash Ciprofloxacin Rash Not hives. Erythromycin Itching throat Keflex [Cephalexin] Itching throat Naprosyn [Naproxen] Intolerance didn't work Paroxetine Intolerance Paxil [Paroxetine H* Mental Status Change Penicillins Hives Dioxicillin Promethazine Intolerance Yyzajbe-Yjf-Mqe Red* Myalgia PAST MEDICAL HISTORY PAST MEDICAL HISTORY Diagnosis Date CAD (coronary artery disease) Carotid a (more content not included)... Normal [facility] Large Joint Arthro/Inj: L kn ee jointon 10-19-2024 Mendel Sharma P A-C 10/19/2024 10:43 AM Large Joint Arthro/Inj: L knee joint 10/19/2024 10:43 AM The procedure site was prepped in the usual sterile fashion. Site: L knee joint Medications: 40 mg triamcinolone acetonide 40 mg/mL Anesthetics: 3 mL lidocaine (PF) 10 mg/mL (1 %) Outcome: Tolerated well, no immediate complications Post-injection instructions were reviewed with the patient and the patient voiced understanding of these instructions. Informed Consent Consent Obtained: Verbal [place] Protocol A moment to CARE was completed. SIGN IN Personnel directly involved with the procedure wore the appropriate PPE. Special Equipment: N/A Patient/Surrogate Stated/Verified: Patient name, Date of , Relevant allergies and Intended procedure TIME OUT Relevant labs, photos, and/or imaging studies have been reviewed. Intended patient and procedure match source documents. Consent obtained and matches the intended procedure. Correct side/site marked and visible. Medications required for procedure verified. No fire risk assessment and interventions applicable. No implant(s) inserted. SIGN OUT No specimen collected. All instruments, equipment, possible retained foreign bodies accounted for. The post-procedure POC has been communicated to the patient or surrogate. No post-procedure POC communication to the patient's multidisciplinary team (including the bedside nurse for hospitalized patients) applicable. [facility] CNDSon 09-28-2024 CNDS HNO ID: [id number] Author: SAGE LOERA MD Service: Hospital Medicine Author Type: Physician Type: Discharge Summary Filed: 09/30/2024 07:28 Note Text: DISCHARGE SUMMARY PATIENT NAME: Randolph Hunter Code Status: Not on file Highest Readmission Risk Score: 22 The 30 day readmissions risk score is derived from an internally validated risk model which evaluates patient level characteristics, utilization history, medication orders and lab results up until the day of discharge. Patients with a score of 39 or above are considered highest risk for readmission. Specific patient level drivers will be listed at the bottom of the summary. Admission Information Admission Information ADMIT DATE: 09/18/2024 DISCHARGE DATE: 09/28/2024 MY DOCTORS AND MEDICAL TEAM: My Main Hospital Doctor: Sage Loera MD Primary Care Provider: Raf Casey MD, MD My Medical Team Members: Treatment Team: Attending Provider: Sage Loera MD MY CONDITION AT DISCHARGE: Stable REASON I WAS IN THE HOSPITAL: Debility from cerebral palsy with acute left knee pain without fracture and inability to stand pivot necessitating going to prison facility for rehab SUMMARY OF WHAT HAPPENED WHILE I WAS IN THE HOSPITAL: Orthopedics agrees no surgical intervention now resume exercises when you get to the prison facility no ligamentous injury evident on CT scan. Follow-up with orthopedics only as needed if not improving OTHER PROBLEMS/DIAGNOSIS: Principal Problem: Fall at home, initial encounter Active Problems: Lupus anticoagulant disorder (HCC) Pulmonary embolism (HCC) Type 2 diabetes, controlled, with neuropathy (HCC) Acquired hypothyroidism Obesity, Class II, BMI 35-39.9 SLE (systemic lupus erythematosus) (HCC) Knee pain CKD (chronic kidney disease) Depression, recurrent CP (cerebral palsy) (HCC) Hypomagnesemia Fall Resolved Problems: * No resolved hospital problems. * OPERATIONS PERFORMED WHILE IN THE HOSPITAL: None IMPORTANT TEST/PROCEDURES: No procedures performed TEST RESULTS NOT AVAILABLE AT THIS TIME: No pending results Discharge Disposition Discharge Disposition: Custodial Facility - Less than 30 Days Activity When You Leave the Hospital Limited to: Activity levels are to be directed by the assessments of the occupational and physical therapists. Diet Instructions Resume your pre-hospital diet Additional Provider to Provider Information: Consultants: None PROCEDURES: NONE CODE STATUS: Full code ACCEPTS BLOOD PRODUCTS: YES : ASSESSMENT/PLAN Reason for Admission: Fall in patient with cerebral palsy who being unable to bear weight to transfer will need prison home placement Anticoagulation: Prior to admission: Warfarin Current: Warfarin Smoking history: Never Diagnostic tests reviewed for today's visit: Most recent labs INTERVAL EVENTS: Randolph Hunter is a 74 year old female presented with past medical history of asthma, CAD, carotid stenosis, cerebral falsely high functioning, depression, hypertension, hypothyroidism, migraine, SLE with lupus anticoagulant disorder, history of PE on Coumadin, presented to hospital after a fall, patient was trying to transfer from her lift chair to regular wheelchair, her clothing got caught and fell. In ER she was afebrile, vital signs stable. CBC, BMP unremarkable. INR 2.3. Left knee x-ray, no fracture. Left knee CT, small joint effusion. Left ankle x-ray, no fracture, diffuse swelling of lower extremity. Left hip and pelvic x-ray no fracture. Patient admitted for left knee and left ankle pain, unable to put weight on left leg, admitted for PT, OT evaluation, need for placement. Patient refused magnesium today because the amount of stool she passed with 1 dose of mag oxide however she had been constipated for some time and will take 1 dose tomorrow and I will check her magnesium level . That being said she has not had labs in a few days and repeating the other labs and getting daily INR. INR is 2.8 => 2.5 mg warfarin ordered Recent Labs 09/28/24 0510 09/27/24 0509 09/26/24 0522 INR 2.1* 2.8* 4.1* On oral magnesium oxide will check magnesium level tomorrow Principal Problem: Fall (POA: Yes) Knee pain (POA: Yes) CP (cerebral palsy) (HCC) (POA: Yes) --Presented to [facility] for evaluation of left knee pain after a fall at home, non-ambulatory at baseline secondary to CP but concerns for current facility ability to meet her needs --XR L KNEE/HIP/ANKLE negative for acute osseous injury --CT L KNEE negative for fracture, small joint effusion noted --Pain control as needed. On Lidoderm patch, Tylenol. Added oxycodone. 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 Normal [facility] Magnesium SerPl-mCncon 09-28 Magnesium [Mass/Vol] 1.7 mg/dL Normal 1.7-2.3 [facility] Comment on above: Order Comment: Suzanne garcia Type: BLOOD SPECIMENOrdering Facility: [facility] Address: [address] [place] [address] Performed By: #### 1 9123-9 ####[facility] LABORATORYCLIA [id number] [place] [id number] [facility] NURSING PROGon 09-28-2024 NURSING PROG HNO ID: [id number] Author: CHARLEY BARRIENTOS RN Service: Nursing Author Type: Registered Nurse Type: Nursing Progress Note Filed: 09/28/2024 16:32 Note Text: Other: 1625: Patient discharged in stable condition. Left floor via cart w/[employer]. Discharge paperwork and all personal belongings w/patient. Normal [facility] PT panel Coag (PPP)on 2024 INR Coag (PPP) [Relative time] 2.1 {INR} High 0.9-1.3 [facility] Comment on above: Order Comment: Suzanne garcia Type: BLOOD SPECIMENOrdering Facility: [facility] Address: [address] [place] [id number] Result Comment: Kaycee min K Antagonist (VKA) Therapeutic Range: INR 2 to 3 (Target INR of 2.5) Note: For patients treated with VKA drugs, such as warfarin, the [place] [employer] 2012 Guideline recommends a therapeutic INR range of 2 to 3 (target INR of 2.5). This recommendation includes high-risk patients with antiphospholipid syndrome with previous arterial or venous thromboembolism, current-generation mechanical or bioprosthetic aortic heart valve replacement. Note: Patients with mechanical aortic valve replacement and additional risk factors for thromboembolic events (atrial fibrillation, previous thromboembolism, LV dysfunction, hypercoagulable conditions) or an older generation mechanical AVR (i.e., ball in-Cage) or any mechanical MVR should have a INR therapeutic range of 2.5 to 3.5 (target INR of 3). Keegan GH, et al. Chest 2012, 141:7S-47S Roshni RA, et al. [facility] 2017, 70: 252-289 Performed By: #### 3 4528-0 ####[facility] LABORATORYCLIA [id number] [place] [id number] [place] PT Coag (PPP) [Time] 22.0 s High 9.7-13.0 [facility] Comment on above: Order Comment: Suzanne garcia Type: BLOOD SPECIMENOrdering Facility: [facility] Address: [address] [place] [address] Performed By: #### 3 4528-0 ####[facility] LABORATORYCLIA [id number] [place] [address] [place] PT panel Coag (PPP)on 2024 INR Coag (PPP) [Relative time] 2.8 {INR} High 0.9-1.3 [facility] Comment on above: Order Comment: Suzanne garcia Type: BLOOD SPECIMENOrdering Facility: [facility] Address: [address] [place] [address] Result Comment: Kaycee min K Antagonist (VKA) Therapeutic Range: INR 2 to 3 (Target INR of 2.5) Note: For patients treated with VKA drugs, such as warfarin, the [place] [employer] 2012 Guideline recommends a therapeutic INR range of 2 to 3 (target INR of 2.5). This recommendation includes high-risk patients with antiphospholipid syndrome with previous arterial or venous thromboembolism, current-generation mechanical or bioprosthetic aortic heart valve replacement. Note: Patients with mechanical aortic valve replacement and additional risk factors for thromboembolic events (atrial fibrillation, previous thromboembolism, LV dysfunction, hypercoagulable conditions) or an older generation mechanical AVR (i.e., ball in-Cage) or any mechanical MVR should have a INR therapeutic range of 2.5 to 3.5 (target INR of 3). Keegan GH, et al. Chest 2012, 141:7S-47S Roshni RA, et al. [facility] 2017, 70: 252-289 Performed By: #### 3 4528-0 ####TR[facility]ID[facility] LABORATORYCLIA [id number] [place] [address] [facility] PT Coag (PPP) [Time] 27.9 s High 9.7-13.0 [facility] Comment on above: Order Comment: Speci men Type: BLOOD SPECIMENOrdering Facility: [facility] Address: [facility] [place] [address] Performed By: #### 3 4528-0 ####TR[facility] LABORATORYCLIA [id number] [place] [id number] [facility] NUTRITIONon 09-26-2024 NUTRITION HNO ID: [id number] Author: SALVADOR ISLAS RD Service: Nutrition Therapy Author Type: Registered Dietitian Type: Nutrition Filed: 09/26/2024 15:11 Note Text: NUTRITION THERAPY PROGRESS NOTE SERVICE DATE: 09/26/2024 SERVICE TIME: 2:52 pm Care Plan: Continue current diet as tolerated. Some trouble chewing per pt, but trying to order food she knows she can chew. She declined a texture modified diet at this time. Consider a speech therapy consult for swallow eval if pt unable to tolerate regular texture. Supplements: Ensure Max Monitor and Evaluation: Meet greater than 75% of estimated needs Interval History: Pt continues on oral diet. Intake History: Current Nutrition Intake: 50-100% of meals that have been recorded in flowsheets over the past 6 days. Appetite has been good per pt, likes the ensure max. Diet Orders (From admission, onward) Start Ordered 09/19/245 DIET SUPPLEMENTS NOW Question Answer Comment Supplement 1 ENSURE MAX CHOCOLATE Supplement 1 Frequency PM SNACK 09/19/24 1312 09/19/245 Diet Regular START NOW 09/19/24211 Anthropometrics: Height: 157.5 cm (5' 2") Weight: 94.9 kg (209 lb 3.5 oz) Body mass index is 38.27 kg/m?. Lines, Drains, and Airways Drain Duration External Collection Device 09/18/24 2332 [facility] 7 days MNT Billing: $ Reassessment: 1-15 minutes SIGNATURE: Salvador Islas RD PATIENT NAME: Randolph Hunter DATE: September 26, 2024 TIME: 3:09 PM Normal [facility] PT panel Coag (PPP)on 2024 INR Coag (PPP) [Relative time] 4.1 {INR} High 0.9-1.3 [facility] Comment on above: Order Comment: Suzanne garcia Type: BLOOD SPECIMENOrdering Facility: [facility] Address: [address] [place] [address] Result Comment: Kaycee min K Antagonist (VKA) Therapeutic Range: INR 2 to 3 (Target INR of 2.5) Note: For patients treated with VKA drugs, such as warfarin, the [employer] [employer] 2012 Guideline recommends a therapeutic INR range of 2 to 3 (target INR of 2.5). This recommendation includes high-risk patients with antiphospholipid syndrome with previous arterial or venous thromboembolism, current-generation mechanical or bioprosthetic aortic heart valve replacement. Note: Patients with mechanical aortic valve replacement and additional risk factors for thromboembolic events (atrial fibrillation, previous thromboembolism, LV dysfunction, hypercoagulable conditions) or an older generation mechanical AVR (i.e., ball in-Cage) or any mechanical MVR should have a INR therapeutic range of 2.5 to 3.5 (target INR of 3). Keegan GH, et al. Chest 2012, 141:7S-47S Roshni RA, et al. [facility] 2017, 70: 252-289 Performed By: #### 3 4528-0 ####[facility] LABORATORYCLIA [id number] [place], [place] [id number] [place] [address] [place] PT Coag (PPP) [Time] 39.9 s High 9.7-13.0 [facility] Comment on above: Order Comment: Suzanne garcia Type: BLOOD SPECIMENOrdering Facility: [facility] Address: [address] [place] [address] Performed By: #### 3 4528-0 ####TR[facility] LABORATORYCLIA [id number] [place] [address] [place] THERAPY NTon 09-26-2024 THERAPY NT HNO ID: [id number] Author: ESTELLE CAGE PT Service: Physical Therapy Author Type: Physical Therapist Type: Therapy (PT/OT/Speech/Resp) Filed: 09/26/2024 12:08 Note Text: Summary: PT treatment Physical Therapy Treatment Summary SERVICE DATE: 09/26/2024 SERVICE TIME: 1130 to 1155 ROOM: [place] [address] PT 6 Clicks Score: 14 DISCHARGE RECOMMENDATIONS Subacute/SNF Recommended Discharge Disposition Comments: Pt is currently performing functional mobility below PLOF and would benefit from continued skilled PT to reduce risk of falls and rehospitalization. Recommended Discharge Disposition Due to: Functional deficits requiring ongoing therapy service prior to discharge home., Anticipated community discharge, Balance deficits, Functional status decline, Requires multiple therapy disciplines Anticipated Discharge Needs: Physical Assist at Home, Supervision at Home Physical Assist at Home for: Transfers, Ambulation, Cleaning, Laundry, Meals, Stairs, Safety, Self Care, Shopping, Transportation Supervision at Home due to: Decreased safety awareness Recommended Discharge Equipment: No equipment needs anticipated ASSESSMENT Response to Therapy Interventions: Good Participation in Activities, Low Activity Tolerance, Pain, Requires Encouragement to Complete Activities, Slow Progression with Functional Activities/Skills, Requires Additional Time to Complete Activities patient with continued pain and weakness. patient motivated for participation. increased time for mobility, positioning and encouragement. PRECAUTIONS Fall Risk, Lines/Tubes/Drains, Bed/Chair Alarm CURRENT HOSPITAL COURSE Pt was seen in this ED earlier today after she sustained a fall. Pt was cleared and discharged back to the facility. Pt states the pain in her LEFT leg has increased and the facility is unable to help her as she is struggling to ambulate. Patient admitted to [facility] with Dx: Decreased activities of daily living (ADL), Fall at home, initial encounter Relevant Past Medical History: DM, edema, depression,asthma, obesity, irsutism, venous insufficiency, oseteomyeliitis of foot, SLE, cerebral palsy, pulmonary embolism, hypothyroidism, insomnai, CAD, migraines, HTN, hysterectomy HOME LIVING Patient Lives With: Facility Care, Spouse, Other: See Comment Comments: RETIREMENT with spouse Assistance Available: 24-Hour Comments: RETIREMENT staff for toileting and shower Entry To Home: No Stairs Number Of Stairs To Bed/Bath: 0 Tub/Shower Type: Accessible WIS with shower chair + grab bars, has assistance/supervision for transfers Laundry: RETIREMENT staff completes Equipment Owned: Lift Chair, Commode- Bedside, Wheelchair- Manual, Grab Bars- Toilet, Shower Chair, Hand Held Shower PRIOR FUNCTIONAL LEVEL Required Assistance, History of Falls Assistance Required With: Transfers, Cleaning, Laundry, Meals, Self Care, Shopping, Transportation, Safety Patient reports she uses lift function of chair for transfer. non ambulatory since 10 years ago. Assist for shower, toileting, dressing, setup assist for grooming and feeding, and assist for IADLs but pt manages own meds. normally transfers from surface to surface preferrably to right side indep with occasional supervision/assistance for shower transfers. reports 3 falls in the past 6 months. ind propeling w/c with right side. sleeps on the lift chair SUBJECTIVE patient agreeable and motivated to work with PT. notes frustrations regarding delays to get SNF approved. Notes increased anxiety and called RN after PT completed. reports that she is mad at herself for making a mistake with transfers. THERAPY DIAGNOSIS Reduced mobility-other TREATMENT INTERVENTIONS Therapeutic Activity (92283) Timed Code Treatment (minutes): 25 Skilled Treatment Time (minutes): 25 Therapeutic Activity (77135) Treatment Minutes: 25 $ Therapeutic Activity (53517) Billed Units: 2 units TRAINING AND EDUCATION PROVIDED Bed Mobility, Benefits of In-Hospital Mobility, Discharge Planning, Energy Conservation, Expected Functional Level, Falls Prevention, Positioning, Precautions/Restrictions, Pre-gait Activities, Role of Physical Therapy, Sitting Balance, Standing Balance, Transfers THERAPEUTIC SKILLS USED Activity Dosing, Cues for Sequencing/Proper Technique for Activity, Cuing Tactile, Cuing Verbal, Movement Facilitation, Muscle Activation Facilitation, Physical Assist, Postural Alignment Correction, Teach-Back for Education FUNCTIONAL STATUS Bed Mobility Supine To Sit: Modified Independent HOB 45 deg and increased rail use. increased time to EOB Sit to Supine: Moderate Assistance, Additional Information A for B LE mgmt and cues for safe bed rail use Scooting: Minimal Assistance, Contact Guard Assistance, Additional Inform (more content not included)... [facility] THERAPY NT HNO ID: [id number] Author: BARBARA CHU OTR/Abiodun Service: Occupational Therapy Author Type: Occupational Therapist Type: Therapy (PT/OT/Speech/Resp) Filed: 09/26/2024 11:51 Note Text: Summary: OT precert note Occupational Therapy Treatment Summary SERVICE DATE: 09/26/2024 SERVICE TIME: 1100 to 1136 ROOM: [id number] OT 6 Clicks Score: 13 DISCHARGE RECOMMENDATIONS Subacute/SNF Recommended Discharge Disposition Due to: Functional deficits requiring ongoing therapy service prior to discharge home., ADL impairment, Anticipated community discharge, Functional status decline, Requires multiple therapy disciplines Anticipated Discharge Needs: Physical Assist at Home, Supervision at Home Physical Assist at Home for: Transfers, Ambulation, Cleaning, Laundry, Meals, Stairs, Safety, Self Care, Shopping, Transportation Supervision at Home due to: Decreased safety awareness Recommended Discharge Equipment: No equipment needs anticipated ASSESSMENT Response to Therapy Interventions: Requires Additional Time to Complete Activities Patient incontinent of stool this day with activity limited to bed level for personal care and exercises PRECAUTIONS Fall Risk, Lines/Tubes/Drains, Bed/Chair Alarm CURRENT HOSPITAL COURSE Pt was seen in this ED earlier today after she sustained a fall. Pt was cleared and discharged back to the facility. Pt states the pain in her LEFT leg has increased and the facility is unable to help her as she is struggling to ambulate. Patient admitted to [facility] with Dx: Decreased activities of daily living (ADL), Fall at home, initial encounter Relevant Past Medical History: DM, edema, depression,asthma, obesity, irsutism, venous insufficiency, oseteomyeliitis of foot, SLE, cerebral palsy, pulmonary embolism, hypothyroidism, insomnai, CAD, migraines, HTN, hysterectomy HOME LIVING Patient Lives With: Facility Care, Spouse, Other: See Comment Comments: RETIREMENT with spouse Assistance Available: 24-Hour Comments: RETIREMENT staff for toileting and shower Entry To Home: No Stairs Number Of Stairs To Bed/Bath: 0 Tub/Shower Type: Accessible WIS with shower chair + grab bars, has assistance/supervision for transfers Laundry: RETIREMENT staff completes Equipment Owned: Lift Chair, Commode- Bedside, Wheelchair- Manual, Grab Bars- Toilet, Shower Chair, Hand Held Shower PRIOR FUNCTIONAL LEVEL Required Assistance, History of Falls Assistance Required With: Transfers, Cleaning, Laundry, Meals, Self Care, Shopping, Transportation, Safety Patient reports she uses lift function of chair for transfer. non ambulatory since 10 years ago. Assist for shower, toileting, dressing, setup assist for grooming and feeding, and assist for IADLs but pt manages own meds. normally transfers from surface to surface preferrably to right side indep with occasional supervision/assistance for shower transfers. reports 3 falls in the past 6 months. ind propeling w/c with right side. sleeps on the lift chair Baseline Cognition: Oriented to time, Oriented to place, Oriented to self SUBJECTIVE COGNITION Communication Deficits: (talkative) Orientation Deficits: (AOx3) Responsiveness: Alert, Awake Follows Commands: Cueing Needed Cueing to Follow Commands: Minimum Attention Deficits: Distractible THERAPY DIAGNOSIS Reduced mobility-other, Decreased activities of daily living (ADL), Muscle Weakness (generalized), General symptoms and signs-other TREATMENT INTERVENTIONS Therapeutic Exercise (33258), Self Alf Management (09178) Timed Code Treatment (minutes): 27 Skilled Treatment Time (minutes): 27 TRAINING AND EDUCATION PROVIDED Bed Mobility, Benefits of In-Hospital Mobility, Discharge Planning, Functional Mobility Involving ADLs, Grooming Tasks, Exercise Program, Role of Occupational Therapy, Safety/Judgment, Toileting , Upper Extremity Dressing THERAPEUTIC SKILLS USED Cuing Tactile, Cuing Verbal, Physical Assist FUNCTIONAL STATUS Activities of Daily Living Assist Level Additional Information Feeding Set Up Grooming Minimal Assistance washed hands face and arms, brushed hair while supine in bed Bathing Upper Body Minimal Assistance Bathing Lower Body Maximal Assistance Dressing Upper Body Minimal Assistance, Additional Information changing hospital gown Dressing Lower Body Total Assistance, Additional Information per clinical judgement Toileting Total Assistance, Additional Information Incontinent of stool with assist for personal care Mobility Assist Level Additional Information Bed Mobility Rolling: Minimal Assistance, Additional Information to both sides with side rail Supine To Sit: Additional Information, Contact Guard Assistance pulling up in bed with top of bed rail Sit To Supine: Contact Guard Assista (more content not included)... [facility] THERAPY NT HNO ID: [id number] Author: ESTELLE CAGE PT Service: Physical Therapy Author Type: Physical Therapist Type: Therapy (PT/OT/Speech/Resp) Filed: 09/26/2024 10:54 Note Text: PHYSICAL THERAPY MISSED VISIT SERVICE DATE: 09/26/2024 SERVICE TIME: 1045 ROOM: [place] [address] Patient not seen due to Patient Not Available.patient was cleaned up and had another bowel movement and has called for assist getting cleaned up. Will re approach when available/appropriate. Secure chat to team and spoke with cm. SIGNATURE: Estelle Cage PT PATIENT NAME: Randolph Hunter DATE: September 26, 2024 TIME: 10:53 AM [facility] THERAPY NT HNO ID: [id number] Author: ESTELLE CAGE PT Service: Physical Therapy Author Type: Physical Therapist Type: Therapy (PT/OT/Speech/Resp) Filed: 09/26/2024 09:42 Note Text: Summary: PT missed visit PHYSICAL THERAPY MISSED VISIT SERVICE DATE: 09/26/2024 SERVICE TIME: 929 ROOM: [place] [address] Patient not seen due to Patient Not Available. Patient was incontinent of bowel and PCNA in room to get patient cleaned up. Received request from for precert. Will re approach as patient is available. SIGNATURE: Estelle Cage PT PATIENT NAME: Randolph Hunter DATE: September 26, 2024 TIME: 9:41 AM [facility] THERAPY NT HNO ID: [id number] Author: TANIA PERDUE OT/Abiodun Service: Occupational Therapy Author Type: Occupational Therapist Type: Therapy (PT/OT/Speech/Resp) Filed: 09/26/2024 09:21 Note Text: Summary: OT Missed Visit OCCUPATIONAL THERAPY MISSED VISIT SERVICE DATE: 09/26/2024 SERVICE TIME: 907 ROOM: [place] [address] Patient not seen due to Patient Not Available. Initiated OT session however pt became incontinent of bowel during progression of supine>sit. PCNA and RN notified, deferred further OT at this time. CM notified as this patient has precert needs. Will re-attempt as schedule allows. SIGNATURE: Tania Perdue, OT/L PATIENT NAME: Randolph Hunter DATE: September 26, 2024 TIME: 9:19 AM Normal [facility] CBC panel Auto (Bld)on 09-25 Erythrocyte distribution width (RBC) [Ratio] 13.5 % Normal 11.5-15.0 [facility] Comment on above: Order Comment: Speci men Type: BLOOD SPECIMENOrdering Facility: [facility] Address: [address] [place] [address] Performed By: #### 5 8410-2 ####[facility] LABORATORYCLIA [id number] [address] Hematocrit (Bld) [Volume fraction] 38.8 % Normal 36.0-46.0 [facility] Comment on above: Order Comment: Speci men Type: BLOOD SPECIMENOrdering Facility: [facility] Address: [address] [place] [address] Performed By: #### 5 8410-2 ####[facility] LABORATORYCLIA [id number] [address] [place] Hemoglobin (Bld) [Mass/Vol] 13.1 g/dL Normal 11.5-15.5 [facility] Comment on above: Order Comment: Speci men Type: BLOOD SPECIMENOrdering Facility: [facility] Address: [address] [place] [address] Performed By: #### 5 8410-2 ####CERV[facility] LABORATORYCLIA [id number] [address] MCH (RBC) [Entitic mass] 30.7 pg Normal 26.0-34.0 [facility] Comment on above: Order Comment: Speci men Type: BLOOD SPECIMENOrdering Facility: [facility] Address: [address] [place] [address] Performed By: #### 5 8410-2 ####CERV[facility]ES LABORATORYCLIA [id number] [place] [address] [place] MCHC (RBC) [Mass/Vol] 33.8 g/dL Normal 30.5-36.0 [facility] Comment on above: Order Comment: Speci men Type: BLOOD SPECIMENOrdering Facility: [facility] Address: [address] [place] [address] Performed By: #### 5 8410-2 ####[facility]ERV[facility] LABORATORYCLIA [id number] [address] [place] MCV (RBC) [Entitic vol] 90.9 fL Normal 80.0-100.0 [facility] Comment on above: Order Comment: Speci men Type: BLOOD SPECIMENOrdering Facility: [facility] Address: [address] [place] [address] Performed By: #### 5 8410-2 ####CERVANTES LABORATORYCLIA [id number] [address] Nucleated RBC (Bld) [#/Vol] 10*3/uL Normal <0.01 [facility] Comment on above: Order Comment: Speci men Type: BLOOD SPECIMENOrdering Facility: [facility] Address: [address] [place] [address] Performed By: #### 5 8410-2 ####CERVANTES LABORATORYCLIA [id number] [address] STATES [facility] Platelet mean volume (Bld) [Entitic vol] 10.2 fL Normal 9.0-12.7 [facility] Comment on above: Order Comment: Speci men Type: BLOOD SPECIMENOrdering Facility: [facility] Address: [address] [place] [address] Performed By: #### 5 8410-2 ####CERVANTES LABORATORYCLIA [id number] [place] [address] [place] Platelets (Bld) [#/Vol] 200 10*3/uL Normal 150-400 [facility] Comment on above: Order Comment: Speci men Type: BLOOD SPECIMENOrdering Facility: [facility] Address: [address] [place] [address] Performed By: #### 5 8410-2 ####CERVANT[facility] LABORATORYCLIA [id number] [address] [place] RBC (Bld) [#/Vol] 4.27 10*6/uL Normal 3.90-5.20 [facility] Comment on above: Order Comment: Speci men Type: BLOOD SPECIMENOrdering Facility: [facility] Address: [address] [place] [address] Performed By: #### 5 8410-2 ####CERVANTES LABORATORYCLIA [id number] [address] STATES OF [facility] WBC (Bld) [#/Vol] 10.28 10*3/uL Normal 3.70-11.00 [facility] Comment on above: Order Comment: Speci men Type: BLOOD SPECIMENOrdering Facility: [facility] Address: [address] [place] [address] Performed By: #### 5 8410-2 ####CERV[facility] LABORATORYCLIA [id number] [address] Comprehensive metabolic 2000 panelon 09-25-2024 Albumin [Mass/Vol] 3.0 g/dL Low 3.9-4.9 [facility] Comment on above: Order Comment: Speci men Type: BLOOD SPECIMENOrdering Facility: [facility] Address: [address] [place] [address] Performed By: #### 1 9123-9, 59914-8 ####CERV[facility] LABORATORYCLIA [id number] [address] ALP [Catalytic activity/Vol] 41 U/L Normal 34-123 [facility] Comment on above: Order Comment: Speci men Type: BLOOD SPECIMENOrdering Facility: [facility] Address: [address] [place] [address] Performed By: #### 1 9123-9, 65417-4 ####CERV[facility] LABORATORYCLIA [id number] [address] ALT [Catalytic activity/Vol] 11 U/L Normal 7-38 [facility] Comment on above: Order Comment: Speci men Type: BLOOD SPECIMENOrdering Facility: [facility] Address: [address] [place] [address] Performed By: #### 1 9123-9, 92326-9 ####CERVANTES LABORATORYCLIA [id number] [place] [id number] [place] Anion gap [Moles/Vol] 11 mmol/L Normal 8-15 [facility] Comment on above: Order Comment: Speci men Type: BLOOD SPECIMENOrdering Facility: [facility] Address: [address] [place] [address] Performed By: #### 1 9123-9, 17556-0 ####CERVANTES LABORATORYCLIA [id number] [place] [address] [place] AST [Catalytic activity/Vol] 21 U/L Normal 13-35 [facility] Comment on above: Order Comment: Speci men Type: BLOOD SPECIMENOrdering Facility: [facility] Address: [address] [place] [address] Performed By: #### 1 9123-9, 14821-9 ####CERVANT[facility] LABORATORYCLIA [id number] [place] [address] [place] Bilirubin [Mass/Vol] 0.3 mg/dL Normal 0.2-1.3 [facility] Comment on above: Order Comment: Speci men Type: BLOOD SPECIMENOrdering Facility: [facility] Address: [address] [place] [address] Performed By: #### 1 9123-9, 37767-6 ####CERV[facility] LABORATORYCLIA [id number] [place] [address] [place] Calcium [Mass/Vol] 9.0 mg/dL Normal 8.5-10.2 [facility] Comment on above: Order Comment: Speci men Type: BLOOD SPECIMENOrdering Facility: [facility] Address: [address] [place] [address] Performed By: #### 1 9123-9, 50194-0 ####CERVANTES LABORATORYCLIA [id number] [place] [address] [place] Chloride [Moles/Vol] 99 mmol/L Normal 98-107 [facility] Comment on above: Order Comment: Speci men Type: BLOOD SPECIMENOrdering Facility: [facility] Address: [address] [place] [address] Performed By: #### 1 239, ####CERVANT[facility] LABORATORYCLIA [id number] [place] [address] [place] CO2 [Moles/Vol] 24 mmol/L Normal 22-30 [facility] Comment on above: Order Comment: Speci men Type: BLOOD SPECIMENOrdering Facility: [facility] Address: [address] [place] [address] Performed By: #### 1 9, ####CERVANT[facility] LABORATORYCLIA [id number] [place] [address] [place] Creatinine [Mass/Vol] 0.66 mg/dL Normal 0.58-0.96 [facility] Comment on above: Order Comment: Speci men Type: BLOOD SPECIMENOrdering Facility: [facility] Address: [address] [place] [address] Performed By: #### 1 9, ####CERVANT[facility] LABORATORYCLIA [id number] [address] OF [facility] Creatinine and Glomerular filtration rate.predicted panel (S/P/Bld) 93 mL/min/1.73m??? Normal >=60 [facility] Comment on above: Order Comment: Speci men Type: BLOOD SPECIMENOrdering Facility: [facility] Address: [address] [place] [address] Result Comment: Winifred mated Glomerular Filtration Rate (eGFR) is calculated using the 2020 CKD-EPI creatinine equation. This equation utilizes serum creatinine, sex, and age as parameters. The creatinine assay has traceable calibration to isotope dilution-mass spectrometry. Refer to KDIGO guidelines for clinical interpretation. In patients with unstable renal function, e.g. those with acute kidney injury, the eGFR may not accurately reflect actual GFR. Performed By: #### 1 23-9, ####CERV[facility] LABORATORYCLIA [id number] [place] [address] [place] Glucose [Mass/Vol] 202 mg/dL High 74-99 [facility] Comment on above: Order Comment: Speci men Type: BLOOD SPECIMENOrdering Facility: [facility] Address: [address] [place] [address] Result Comment: The [place] [employer] (ADA) provides guidance for cutoff values for fasting glucose and random glucose. The ADA defines fasting as no caloric intake for at least 8 hours. Fasting plasma glucose results between 100 to 125 mg/dL indicate increased risk for diabetes (prediabetes). Fasting plasma glucose results greater than or equal to 126 mg/dL meet the criteria for diagnosis of diabetes. In the absence of unequivocal hyperglycemia, results should be confirmed by repeat testing. In a patient with classic symptoms of hyperglycemia or hyperglycemic crisis, random plasma glucose results greater than or equal to 200 mg/dL meet the criteria for diagnosis of diabetes. Reference: Standards of Medical Care in Diabetes 2016, [place] [employer]. Diabetes Care. 2016.39(Suppl 1). Performed By: #### 1 9123-9, ####CERV[facility] LABORATORYCLIA [id number] [place] [address] [place] Potassium [Moles/Vol] 4.4 mmol/L Normal 3.7-5.1 [facility] Comment on above: Order Comment: Suzanne radha Type: BLOOD SPECIMENOrdering Facility: [facility] Address: [address] [place] [address] Performed By: #### 1 23-9, ####CERV[facility] LABORATORYCLIA [id number] [place] [address] [place] Protein [Mass/Vol] 6.0 g/dL Low 6.3-8.0 [facility] Comment on above: Order Comment: Suzanne men Type: BLOOD SPECIMENOrdering Facility: [facility] Address: [address] [place] [id number] Performed By: #### 1 9123-9, ####CERVANTES LABORATORYCLIA [id number] [place] [address] [place] Sodium [Moles/Vol] 134 mmol/L Low 136-144 [facility] Comment on above: Order Comment: Suzanne radha Type: BLOOD SPECIMENOrdering Facility: [facility] Address: [address] [place] [address] Performed By: #### 1 9123-9, 69537-3 ####[facility] LABORATORYCLIA [id number] [place] [address] [place] Urea nitrogen [Mass/Vol] 14 mg/dL Normal - [facility] Comment on above: Order Comment: Suzanne garcia Type: BLOOD SPECIMENOrdering Facility: [facility] Address: [address] [place], [place] [address] Performed By: #### 1 9123-9, 62254-4 ####[facility] LABORATORYCLIA [id number] [place] [address] [place] Magnesium SerPl-mCncon 09-25 Magnesium [Mass/Vol] 1.5 mg/dL Low 1.7-2.3 [facility] Comment on above: Order Comment: Suzanne garcia Type: BLOOD SPECIMENOrdering Facility: [facility] Address: [address] [place] [address] Performed By: #### 1 9123-9, 02808-8 ####[facility] LABORATORYCLIA [id number] [place] [id number] [place] PT panel Coag (PPP)on 2024 INR Coag (PPP) [Relative time] 4.2 {INR} High 0.9-1.3 [facility] Comment on above: Order Comment: Suzanne garcia Type: BLOOD SPECIMENOrdering Facility: [facility] Address: [address] [place] [address] Result Comment: Kaycee min K Antagonist (VKA) Therapeutic Range: INR 2 to 3 (Target INR of 2.5) Note: For patients treated with VKA drugs, such as warfarin, the [place] [employer] 2012 Guideline recommends a therapeutic INR range of 2 to 3 (target INR of 2.5). This recommendation includes high-risk patients with antiphospholipid syndrome with previous arterial or venous thromboembolism, current-generation mechanical or bioprosthetic aortic heart valve replacement. Note: Patients with mechanical aortic valve replacement and additional risk factors for thromboembolic events (atrial fibrillation, previous thromboembolism, LV dysfunction, hypercoagulable conditions) or an older generation mechanical AVR (i.e., ball in-Cage) or any mechanical MVR should have a INR therapeutic range of 2.5 to 3.5 (target INR of 3). Keegan GH, et al. Chest 2012, 141:7S-47S Roshni RA, et al. [facility] 2017, 70: 252-289 Performed By: #### 3 4528-0 ####CERV[facility] LABORATORYCLIA [id number] [address] [place] PT Coag (PPP) [Time] 41.3 s High 9.7-13.0 [facility] Comment on above: Order Comment: Suzanne garcia Type: BLOOD SPECIMENOrdering Facility: [facility] Address: [address] [place] [address] Performed By: #### 3 4528-0 ####CERVANT[facility] LABORATORYCLIA [id number] [address] CONSULT PROGon 09-23-2024 CONSULT PROG HNO ID: [id number] Author: PIPE FREEMAN RPh Service: Pharmacy Author Type: Pharmacist Type: Consult Progress Note Filed: 09/23/2024 12:07 Note Text: PHARMACY PROGRESS NOTE Patient Name: Randolph Hunter Admission Date: 09/18/2024 Date of Consult: 09/23/2024 Time of Consult: 12:07 PM In accordance with the inpatient pharmacy consult agreement the following medication changes have been made: INR ordered per anticoagulation monitoring policy. Pharmacy will continue to monitor patient for continued eligibility of these medication changes. Please call with any questions or concerns. SIGNATURE: Pipe Freeman RPh DATE/TIME: 09/23/2024 12:07 PM Normal [facility] PT panel Coag (PPP)on 2024 INR Coag (PPP) [Relative time] 2.9 {INR} High 0.9-1.3 [facility] Comment on above: Order Comment: Suzanne garcia Type: BLOOD SPECIMENOrdering Facility: [facility] Address: [address] [place] [address] Result Comment: Kaycee min K Antagonist (VKA) Therapeutic Range: INR 2 to 3 (Target INR of 2.5) Note: For patients treated with VKA drugs, such as warfarin, the [place] [employer] 2012 Guideline recommends a therapeutic INR range of 2 to 3 (target INR of 2.5). This recommendation includes high-risk patients with antiphospholipid syndrome with previous arterial or venous thromboembolism, current-generation mechanical or bioprosthetic aortic heart valve replacement. Note: Patients with mechanical aortic valve replacement and additional risk factors for thromboembolic events (atrial fibrillation, previous thromboembolism, LV dysfunction, hypercoagulable conditions) or an older generation mechanical AVR (i.e., ball in-Cage) or any mechanical MVR should have a INR therapeutic range of 2.5 to 3.5 (target INR of 3). Keegan SOUZA, et al. Chest 2012, 141:7S-47S Roshni RA, et al. [facility] 2017, 70: 252-289 Performed By: #### 3 4528-0 ####[facility] LABORATORYCLIA [id number] [place] [address] [place] PT Coag (PPP) [Time] 29.1 s High 9.7-13.0 [facility] Comment on above: Order Comment: Suzanne garcia Type: BLOOD SPECIMENOrdering Facility: [facility] Address: [address] [place] [address] Performed By: #### 3 4528-0 ####CERV[facility] LABORATORYCLIA [id number] [place] [id number] [facility] PT panel Coag (PPP)on 2024 INR Coag (PPP) [Relative time] 2.8 {INR} High 0.9-1.3 [facility] Comment on above: Order Comment: Suzanne garcia Type: BLOOD SPECIMENOrdering Facility: [facility] Address: [address] [place] [address] Result Comment: Kaycee min K Antagonist (VKA) Therapeutic Range: INR 2 to 3 (Target INR of 2.5) Note: For patients treated with VKA drugs, such as warfarin, the [place] [employer] 2012 Guideline recommends a therapeutic INR range of 2 to 3 (target INR of 2.5). This recommendation includes high-risk patients with antiphospholipid syndrome with previous arterial or venous thromboembolism, current-generation mechanical or bioprosthetic aortic heart valve replacement. Note: Patients with mechanical aortic valve replacement and additional risk factors for thromboembolic events (atrial fibrillation, previous thromboembolism, LV dysfunction, hypercoagulable conditions) or an older generation mechanical AVR (i.e., ball in-Cage) or any mechanical MVR should have a INR therapeutic range of 2.5 to 3.5 (target INR of 3). Keegan SOUZA, et al. Chest 2012, 141:7S-47S Roshni CASTILLO, et al. [facility] 2017, 70: 252-289 Performed By: #### 3 4528-0 ####[facility] LABORATORYCLIA [id number] [place] [address] [facility] [place] PT Coag (PPP) [Time] 27.8 s High 9.7-13.0 [facility] Comment on above: Order Comment: Speci men Type: BLOOD SPECIMENOrdering Facility: [facility] Address: [address] [place] [address] [place] [id number] Performed By: #### 3 4528-0 ####[facility] LABORATORYCLIA [id number] [place] [id number] [facility] THERAPY NTon 09-22-2024 THERAPY NT HNO ID: [id number] Author: ESTELLE CAGE PT Service: Physical Therapy Author Type: Ruching Machine Operator Type: Therapy (PT/OT/Speech/Resp) Filed: 09/22/2024 17:13 Note Text: Attestation signed by Estelle Cage PT at 09/22/2024 5:13 PM I reviewed and agree with the documentation corresponding to this therapy visit. SIGNATURE: Estelle Cage PT DATE: September 22, 2024 TIME: 5:13 PM Summary: PT Treat Physical Therapy Treatment Summary SERVICE DATE: 09/22/2024 SERVICE TIME: 1408 to 1439 ROOM: [place] [address] PT 6 Clicks Score: 12 DISCHARGE RECOMMENDATIONS Subacute/SNF Recommended Discharge Disposition Comments: Pt is currently performing functional mobility below PLOF and would benefit from continued skilled PT to reduce risk of falls and rehospitalization. Recommended Discharge Disposition Due to: Functional deficits requiring ongoing therapy service prior to discharge home., Anticipated community discharge, Balance deficits, Functional status decline, Requires multiple therapy disciplines Anticipated Discharge Needs: Physical Assist at Home, Supervision at Home Physical Assist at Home for: Transfers, Ambulation, Cleaning, Laundry, Meals, Medication Management, Safety, Self Care, Shopping, Transportation, Wheelchair Mobility Supervision at Home due to: Decreased safety awareness, Impaired cognition Recommended Discharge Equipment: No equipment needs anticipated ASSESSMENT Response to Therapy Interventions: Good Participation in Activities, Low Activity Tolerance, Pain, Requires Encouragement to Complete Activities, Slow Progression with Functional Activities/Skills pt tolerated session well. pt required increased time and redirection for all mobility. pt able to stand with MOD assist this session. pt would benefit from skilled therapy following hospital d.c PRECAUTIONS Fall Risk, Lines/Tubes/Drains, Bed/Chair Alarm CURRENT HOSPITAL COURSE Pt was seen in this ED earlier today after she sustained a fall. Pt was cleared and discharged back to the facility. Pt states the pain in her LEFT leg has increased and the facility is unable to help her as she is struggling to ambulate. Patient admitted to [facility] with Dx: Decreased activities of daily living (ADL), Fall at home, initial encounter Relevant Past Medical History: DM, edema, depression,asthma, obesity, irsutism, venous insufficiency, oseteomyeliitis of foot, SLE, cerebral palsy, pulmonary embolism, hypothyroidism, insomnai, CAD, migraines, HTN, hysterectomy HOME LIVING Patient Lives With: Facility Care, Spouse, Other: See Comment Comments: RETIREMENT with spouse Assistance Available: 24-Hour Comments: RETIREMENT staff for toileting and shower Entry To Home: No Stairs Number Of Stairs To Bed/Bath: 0 Tub/Shower Type: Accessible WIS with shower chair + grab bars, has assistance/supervision for transfers Laundry: RETIREMENT staff completes Equipment Owned: Lift Chair, Commode- Bedside, Wheelchair- Manual, Grab Bars- Toilet, Shower Chair, Hand Held Shower PRIOR FUNCTIONAL LEVEL Required Assistance, History of Falls Assistance Required With: Transfers, Cleaning, Laundry, Meals, Self Care, Shopping, Transportation, Safety Patient reports she uses lift function of chair for transfer. non ambulatory since 10 years ago. Assist for shower, toileting, dressing, setup assist for grooming and feeding, and assist for IADLs but pt manages own meds. normally transfers from surface to surface preferrably to right side indep with occasional supervision/assistance for shower transfers. reports 3 falls in the past 6 months. ind propeling w/c with right side. sleeps on the lift chair SUBJECTIVE pt agreeable to PT okay per RN to see. THERAPY DIAGNOSIS Reduced mobility-other TREATMENT INTERVENTIONS Therapeutic Activity (17311) Timed Code Treatment (minutes): 31 Skilled Treatment Time (minutes): 31 Therapeutic Activity (84131) Treatment Minutes: 31 $ Therapeutic Activity (28226) Billed Units: 2 units TRAINING AND EDUCATION PROVIDED Bed Mobility, Benefits of In-Hospital Mobility, Discharge Planning, Energy Conservation, Expected Functional Level, Falls Prevention, Positioning, Precautions/Restrictions, Pre-gait Activities, Role of Physical Therapy, Sitting Balance, Standing Balance, Transfers THERAPEUTIC SKILLS USED Activity Dosing, Cues for Sequencing/Proper Technique for Activity, Cuing Tactile, Cuing Verbal, Movement Facilitation, Muscle Activation Facilitation, Physical Assist, Postural Alignment Correction, Teach-Back for Education FUNCTIONAL STATUS Bed Mobility Supine To Sit: Modified In (more content not included)... [facility] THERAPY NT HNO ID: [id number] Author: CHRISTIANO MAYEN OT/Abiodun Service: ? Author Type: Occupational Therapist Type: Therapy (PT/OT/Speech/Resp) Filed: 09/22/2024 09:46 Note Text: Summary: OT Treatment Occupational Therapy Treatment Summary SERVICE DATE: 09/22/2024 SERVICE TIME: 857 to 939 ROOM: [id number] OT 6 Clicks Score: 14 DISCHARGE RECOMMENDATIONS Subacute/SNF Recommended Discharge Disposition Due to: Functional deficits requiring ongoing therapy service prior to discharge home., ADL impairment, Anticipated community discharge, Functional status decline Anticipated Discharge Needs: Physical Assist at Home, Supervision at Home Physical Assist at Home for: Transfers, Ambulation, Cleaning, Laundry, Meals, Medication Management, Safety, Self Care, Shopping, Transportation, Wheelchair Mobility Supervision at Home due to: Decreased safety awareness, Impaired cognition Recommended Discharge Equipment: No equipment needs anticipated ASSESSMENT Response to Therapy Interventions: Good Participation in Activities, Improved Tolerance for Activity, Low Activity Tolerance, Pain, Requires Additional Time to Complete Activities, Needs Frequent Redirection or Reinstruction Patient continues to function below baseline with ADLs and mobility/transfers, demo mild improvement in tolerance to activity and mild improvement in pain control PRECAUTIONS Fall Risk, Lines/Tubes/Drains, Bed/Chair [facility] Pt was seen in this ED earlier today after she sustained a fall. Pt was cleared and discharged back to the facility. Pt states the pain in her LEFT leg has increased and the facility is unable to help her as she is struggling to ambulate. Patient admitted to [facility] with Dx: Decreased activities of daily living (ADL), Fall at home, initial encounter Relevant Past Medical History: DM, edema, depression,asthma, obesity, irsutism, venous insufficiency, oseteomyeliitis of foot, SLE, cerebral palsy, pulmonary embolism, hypothyroidism, insomnai, CAD, migraines, HTN, hysterectomy HOME LIVING Patient Lives With: Facility Care, Spouse, Other: See Comment Comments: RETIREMENT with spouse Assistance Available: 24-Hour Comments: RETIREMENT staff for toileting and shower Entry To Home: No Stairs Number Of Stairs To Bed/Bath: 0 Tub/Shower Type: Accessible WIS with shower chair + grab bars, has assistance/supervision for transfers Laundry: RETIREMENT staff completes Equipment Owned: Lift Chair, Commode- Bedside, Wheelchair- Manual, Grab Bars- Toilet, Shower Chair, Hand Held Shower PRIOR FUNCTIONAL LEVEL Required Assistance, History of Falls Assistance Required With: Transfers, Cleaning, Laundry, Meals, Self Care, Shopping, Transportation, Safety Patient reports she uses lift function of chair for transfer. non ambulatory since 10 years ago. Assist for shower, toileting, dressing, setup assist for grooming and feeding, and assist for IADLs but pt manages own meds. normally transfers from surface to surface preferrably to right side indep with occasional supervision/assistance for shower transfers. reports 3 falls in the past 6 months. ind propeling w/c with right side. sleeps on the lift chair Baseline Cognition: Oriented to time, Oriented to place, Oriented to self SUBJECTIVE Patient pleasant and agreeable to this session COGNITION Orientation Deficits: (AOx3) Responsiveness: Alert, Awake Follows Commands: 2-step Commands, Cueing Needed, With Repetition Cueing to Follow Commands: Minimum Attention Deficits: Distractible THERAPY DIAGNOSIS Reduced mobility-other, Decreased activities of daily living (ADL), Muscle Weakness (generalized), Unsteadiness on feet TREATMENT INTERVENTIONS Self Alf Management (93993), Therapeutic Activity (58135) Timed Code Treatment (minutes): 40 Skilled Treatment Time (minutes): 40 TRAINING AND EDUCATION PROVIDED Activity Adaptation/Compensatory Strategies, Adaptive Equipment/DME, Bed Mobility, Benefits of In-Hospital Mobility, Cognitive Skills, Command Following, Discharge Planning, Expected Functional Level, Functional Mobility Involving ADLs, Grooming Tasks, Fine Motor Coordination, Insight into Deficits, Lower Extremity Dressing, Feeding Tasks, Memory/Attention, Orientation, Positioning, Role of Occupational Therapy, Safety/Judgment, Sitting Balance to Improve Mclennan with ADLs/Self-Care, Standing Balance to Improve Mclennan with ADLs/Self-Care, Transfer - Sit to Stand, Upper Extremity Bathing THERAPEUTIC SKILLS USED Activity Dosing, Cues for Sequencing/Proper Technique for Activity, Cuing Tactile, Cuing Verbal, Cuing Visual, Facilitation of Joint Range of Motion, Movement Facilitation, Muscle Activation Facilitation, Physical Assist, Task Analysis Learning, Teach-Back fo (more content not included)... Normal [facility] CBC panel Auto (Bld)on 09-21 Erythrocyte distribution width (RBC) [Ratio] 13.2 % Normal 11.5-15.0 [facility] Comment on above: Order Comment: Speci men Type: BLOOD SPECIMENOrdering Facility: [facility] Address: [address] [place] [address] Performed By: #### 5 8410-2 ####[facility] LABORATORYCLIA [id number] [address] [place] Hematocrit (Bld) [Volume fraction] 33.6 % Low 36.0-46.0 [facility] Comment on above: Order Comment: Speci men Type: BLOOD SPECIMENOrdering Facility: [facility] Address: [address] [place] [address] Performed By: #### 5 8410-2 ####[facility]ERV[facility] LABORATORYCLIA [id number] [address] [place] Hemoglobin (Bld) [Mass/Vol] 11.4 g/dL Low 11.5-15.5 [facility] Comment on above: Order Comment: Speci men Type: BLOOD SPECIMENOrdering Facility: [facility] Address: [address] [place] [address] Performed By: #### 5 8410-2 ####CERVANTES LABORATORYCLIA [id number] [address] STATES [facility] MCH (RBC) [Entitic mass] 30.8 pg Normal 26.0-34.0 [facility] Comment on above: Order Comment: Speci men Type: BLOOD SPECIMENOrdering Facility: [facility] Address: [address] [place] [address] Performed By: #### 5 8410-2 ####CERVANTES LABORATORYCLIA [id number] [address] MCHC (RBC) [Mass/Vol] 33.9 g/dL Normal 30.5-36.0 [facility] Comment on above: Order Comment: Speci men Type: BLOOD SPECIMENOrdering Facility: [facility] Address: [address] [place] [address] Performed By: #### 5 8410-2 ####[facility]ERV[facility] LABORATORYCLIA [id number] [address] MCV (RBC) [Entitic vol] 90.8 fL Normal 80.0-100.0 [facility] Comment on above: Order Comment: Speci men Type: BLOOD SPECIMENOrdering Facility: [facility] Address: [address] [place] [address] Performed By: #### 5 8410-2 ####CERVANT[facility] LABORATORYCLIA [id number] [address] Nucleated RBC (Bld) [#/Vol] 10*3/uL Normal <0.01 [facility] Comment on above: Order Comment: Speci men Type: BLOOD SPECIMENOrdering Facility: [facility] Address: [address] [place] [address] Performed By: #### 5 8410-2 ####CERV[facility] LABORATORYCLIA [id number] [address] Platelet mean volume (Bld) [Entitic vol] 10.2 fL Normal 9.0-12.7 [facility] Comment on above: Order Comment: Speci men Type: BLOOD SPECIMENOrdering Facility: [facility] Address: [address] [place] [address] Performed By: #### 5 8410-2 ####CERVANT[facility] LABORATORYCLIA [id number] [address] Platelets (Bld) [#/Vol] 177 10*3/uL Normal 150-400 [facility] Comment on above: Order Comment: Speci men Type: BLOOD SPECIMENOrdering Facility: [facility] Address: [address] [place] [id number] Performed By: #### 5 8410-2 ####CERVANTES LABORATORYCLIA [id number] [address] RBC (Bld) [#/Vol] 3.70 10*6/uL Low 3.90-5.20 [facility] Comment on above: Order Comment: Speci men Type: BLOOD SPECIMENOrdering Facility: [facility] Address: [address] [place] [address] Performed By: #### 5 8410-2 ####CERV[facility] LABORATORYCLIA [id number] [address] WBC (Bld) [#/Vol] 5.94 10*3/uL Normal 3.70-11.00 [facility] Comment on above: Order Comment: Speci men Type: BLOOD SPECIMENOrdering Facility: [facility] Address: [facility] [place] [address] Performed By: #### 5 8410-2 ####CERV[facility] LABORATORYCLIA [id number] [address] Comprehensive metabolic 2000 panelon 09-21-2024 Albumin [Mass/Vol] 2.8 g/dL Low 3.9-4.9 [facility] Comment on above: Order Comment: Speci men Type: BLOOD SPECIMENOrdering Facility: [facility] Address: [facility] [place] [address] Performed By: #### 1 9123-9, 09545-2 ####CERVANTES LABORATORYCLIA [id number] [address] ALP [Catalytic activity/Vol] 33 U/L Low 34-123 [facility] Comment on above: Order Comment: Speci men Type: BLOOD SPECIMENOrdering Facility: [facility] Address: [facility] [address] Performed By: #### 1 9123-9, 66555-5 ####CERV[facility] LABORATORYCLIA [id number] [address] ALT [Catalytic activity/Vol] 7 U/L Normal 7-38 [facility] Comment on above: Order Comment: Speci men Type: BLOOD SPECIMENOrdering Facility: [facility] Address: [address] [place] [address] Performed By: #### 1 23-9, 19265-2 ####CERV[facility] LABORATORYCLIA [id number] [address] [place] Anion gap [Moles/Vol] 8 mmol/L Normal 8-15 [facility] Comment on above: Order Comment: Speci men Type: BLOOD SPECIMENOrdering Facility: [facility] Address: [address] [facility] [place] [address] Performed By: #### 1 9122-9, 80632-4 ####CERV[facility] LABORATORYCLIA [id number] [address] [place] AST [Catalytic activity/Vol] 18 U/L Normal 13-35 [facility] Comment on above: Order Comment: Speci men Type: BLOOD SPECIMENOrdering Facility: [facility] Address: [address] [place] [address] Performed By: #### 1 239, 26719-1 ####CERVANT[facility] LABORATORYCLIA [id number] [address] STATES [facility] Bilirubin [Mass/Vol] 0.2 mg/dL Normal 0.2-1.3 [facility] Comment on above: Order Comment: Speci men Type: BLOOD SPECIMENOrdering Facility: [facility] Address: [address] [place] [address] Performed By: #### 1 23-9, 45629-3 ####[facility]ERV[facility] LABORATORYCLIA [id number] [address] [place] Calcium [Mass/Vol] 8.4 mg/dL Low 8.5-10.2 [facility] Comment on above: Order Comment: Speci men Type: BLOOD SPECIMENOrdering Facility: [facility] Address: [address] [place] [address] Performed By: #### 1 23-9, 93739-2 ####CERV[facility] LABORATORYCLIA [id number] [address] [place] Chloride [Moles/Vol] 103 mmol/L Normal 98-107 [facility] Comment on above: Order Comment: Naeemi radha Type: BLOOD SPECIMENOrdering Facility: [facility] Address: [address] [place] [address] Performed By: #### 1 9123-9, ####CERVANT[facility] LABORATORYCLIA [id number] [address] CO2 [Moles/Vol] 27 mmol/L Normal 22-30 [facility] Comment on above: Order Comment: Speci men Type: BLOOD SPECIMENOrdering Facility: [facility] Address: [address] [place] [address] Performed By: #### 1 239, ####CERVANT[facility] LABORATORYCLIA [id number] [address] Creatinine [Mass/Vol] 0.79 mg/dL Normal 0.58-0.96 [facility] Comment on above: Order Comment: Naeemi men Type: BLOOD SPECIMENOrdering Facility: [facility] Address: [address] [place] [address] Performed By: #### 1 23-9, ####CERVANT[facility] LABORATORYCLIA [id number] [address] Creatinine and Glomerular filtration rate.predicted panel (S/P/Bld) 79 mL/min/1.73m??? Normal >=60 [facility] Comment on above: Order Comment: Suzanne men Type: BLOOD SPECIMENOrdering Facility: [facility] Address: [address] [place] [address] Result Comment: Winifred mated Glomerular Filtration Rate (eGFR) is calculated using the 2020 CKD-EPI creatinine equation. This equation utilizes serum creatinine, sex, and age as parameters. The creatinine assay has traceable calibration to isotope dilution-mass spectrometry. Refer to KDIGO guidelines for clinical interpretation. In patients with unstable renal function, e.g. those with acute kidney injury, the eGFR may not accurately reflect actual GFR. Performed By: #### 1 9123-9, 05932-6 ####CERVANTES LABORATORYCLIA [id number] [place] [address] [place] Glucose [Mass/Vol] 115 mg/dL High 74-99 [facility] Comment on above: Order Comment: Suzanne garcia Type: BLOOD SPECIMENOrdering Facility: [facility] Address: [address] [place] [address] Result Comment: The [place] [employer] (ADA) provides guidance for cutoff values for fasting glucose and random glucose. The ADA defines fasting as no caloric intake for at least 8 hours. Fasting plasma glucose results between 100 to 125 mg/dL indicate increased risk for diabetes (prediabetes). Fasting plasma glucose results greater than or equal to 126 mg/dL meet the criteria for diagnosis of diabetes. In the absence of unequivocal hyperglycemia, results should be confirmed by repeat testing. In a patient with classic symptoms of hyperglycemia or hyperglycemic crisis, random plasma glucose results greater than or equal to 200 mg/dL meet the criteria for diagnosis of diabetes. Reference: Standards of Medical Care in Diabetes 2016, [place] [employer]. Diabetes Care. 2016.39(Suppl 1). Performed By: #### 1 9123-9, ####CERVANTES LABORATORYCLIA [id number] [place] [address] [place] Potassium [Moles/Vol] 4.8 mmol/L Normal 3.7-5.1 [facility] Comment on above: Order Comment: Suzanne garcia Type: BLOOD SPECIMENOrdering Facility: [facility] Address: [address] [place] [address] Performed By: #### 1 9123-9, 87212-9 ####CERVANTES LABORATORYCLIA [id number] [place] [address] [place] Protein [Mass/Vol] 5.6 g/dL Low 6.3-8.0 [facility] Comment on above: Order Comment: Suzanne garcia Type: BLOOD SPECIMENOrdering Facility: [facility] Address: [address] [place] [address] Performed By: #### 1 9123-9, 89848-8 ####CERVANT[facility] LABORATORYCLIA [id number] [place] [address] [place] Sodium [Moles/Vol] 138 mmol/L Normal 136-144 [facility] Comment on above: Order Comment: Suzanne garcia Type: BLOOD SPECIMENOrdering Facility: [facility] Address: [address] [place] [address] Performed By: #### 1 9123-9, 05324-5 ####CERVANT[facility] LABORATORYCLIA [id number] [place] [address] [place] [facility] Urea nitrogen [Mass/Vol] 16 mg/dL Normal 7-21 [facility] Comment on above: Order Comment: Suzanne garcia Type: BLOOD SPECIMENOrdering Facility: [facility] Address: [address] [place] [address] Performed By: #### 1 9123-9, 52768-9 ####CERVANT[facility] LABORATORYCLIA [id number] [place] [address] [place] Magnesium SerPl-mCncon 09-21 Magnesium [Mass/Vol] 1.9 mg/dL Normal 1.7-2.3 [facility] Comment on above: Order Comment: Suzanne garcia Type: BLOOD SPECIMENOrdering Facility: [facility] Address: [address] [place] [address] Performed By: #### 1 9123-9, 55684-5 ####CERVANT[facility] LABORATORYCLIA [id number] [place] [address] [place] PT panel Coag (PPP)on 2024 INR Coag (PPP) [Relative time] 2.5 {INR} High 0.9-1.3 [facility] Comment on above: Order Comment: Suzanne garcia Type: BLOOD SPECIMENOrdering Facility: [facility] Address: [address] [place] [address] Result Comment: Kaycee min K Antagonist (VKA) Therapeutic Range: INR 2 to 3 (Target INR of 2.5) Note: For patients treated with VKA drugs, such as warfarin, the [place] [employer] 2012 Guideline recommends a therapeutic INR range of 2 to 3 (target INR of 2.5). This recommendation includes high-risk patients with antiphospholipid syndrome with previous arterial or venous thromboembolism, current-generation mechanical or bioprosthetic aortic heart valve replacement. Note: Patients with mechanical aortic valve replacement and additional risk factors for thromboembolic events (atrial fibrillation, previous thromboembolism, LV dysfunction, hypercoagulable conditions) or an older generation mechanical AVR (i.e., ball in-Cage) or any mechanical MVR should have a INR therapeutic range of 2.5 to 3.5 (target INR of 3). Keegan SOUZA, et al. Chest 2012, 141:7S-47S Roshni CASTILLO et al. [facility] 2017, 70: 252-289 Performed By: #### 3 4528-0 ####CERVANT[facility] LABORATORYCLIA [id number] [address] [place] PT Coag (PPP) [Time] 25.1 s High 9.7-13.0 [facility] Comment on above: Order Comment: Suzanne garcia Type: BLOOD SPECIMENOrdering Facility: [facility] Address: [address] [place] [address] Performed By: #### 3 4528-0 ####CERVANT[facility] LABORATORYCLIA [id number] [address] [place] CBC panel Auto (Bld)on 09-20 Erythrocyte distribution width (RBC) [Ratio] 13.2 % Normal 11.5-15.0 [facility] Comment on above: Order Comment: Suzanne garcia Type: BLOOD SPECIMENOrdering Facility: [facility] Address: [address] [place] [address] Performed By: #### 5 8410-2 ####CERVANT[facility] LABORATORYCLIA [id number] [address] Hematocrit (Bld) [Volume fraction] 36.8 % Normal 36.0-46.0 [facility] Comment on above: Order Comment: Suzanne garcia Type: BLOOD SPECIMENOrdering Facility: [facility] Address: [address] [place] [address] Performed By: #### 5 8410-2 ####CERVANT[facility] LABORATORYCLIA [id number] [address] Hemoglobin (Bld) [Mass/Vol] 12.4 g/dL Normal 11.5-15.5 [facility] Comment on above: Order Comment: Suzanne garcia Type: BLOOD SPECIMENOrdering Facility: [facility] Address: [address] [place] [address] Performed By: #### 5 8410-2 ####CERVANT[facility] LABORATORYCLIA [id number] [address] MCH (RBC) [Entitic mass] 30.8 pg Normal 26.0-34.0 [facility] Comment on above: Order Comment: Speci men Type: BLOOD SPECIMENOrdering Facility: [facility] Address: [address] [place] [address] Performed By: #### 5 8410-2 ####CERVANT[facility] LABORATORYCLIA [id number] [address] MCHC (RBC) [Mass/Vol] 33.7 g/dL Normal 30.5-36.0 [facility] Comment on above: Order Comment: Speci men Type: BLOOD SPECIMENOrdering Facility: [facility] Address: [address] [place] [address] Performed By: #### 5 8410-2 ####CERVANT[facility] LABORATORYCLIA [id number] [address] MCV (RBC) [Entitic vol] 91.5 fL Normal 80.0-100.0 [facility] Comment on above: Order Comment: Speci men Type: BLOOD SPECIMENOrdering Facility: [facility] Address: [address] [place] [address] Performed By: #### 5 8410-2 ####CERVANT[facility] LABORATORYCLIA [id number] [address] Nucleated RBC (Bld) [#/Vol] 10*3/uL Normal <0.01 [facility] Comment on above: Order Comment: Speci men Type: BLOOD SPECIMENOrdering Facility: [facility] Address: [address] [place] [address] Performed By: #### 5 8410-2 ####CERVANT[facility] LABORATORYCLIA [id number] [address] Platelet mean volume (Bld) [Entitic vol] 10.2 fL Normal 9.0-12.7 [facility] Comment on above: Order Comment: Speci men Type: BLOOD SPECIMENOrdering Facility: [facility] Address: [address] [place] [address] Performed By: #### 5 8410-2 ####CERVANT[facility] LABORATORYCLIA [id number] [address] Platelets (Bld) [#/Vol] 175 10*3/uL Normal 150-400 [facility] Comment on above: Order Comment: Speci men Type: BLOOD SPECIMENOrdering Facility: [facility] Address: [address] [place] [address] Performed By: #### 5 8410-2 ####CERVANT[facility] LABORATORYCLIA [id number] [address] RBC (Bld) [#/Vol] 4.02 10*6/uL Normal 3.90-5.20 [facility] Comment on above: Order Comment: Speci men Type: BLOOD SPECIMENOrdering Facility: [facility] Address: [address] [place] [address] Performed By: #### 5 8410-2 ####CERVANT[facility] LABORATORYCLIA [id number] [address] WBC (Bld) [#/Vol] 5.70 10*3/uL Normal 3.70-11.00 [facility] Comment on above: Order Comment: Speci men Type: BLOOD SPECIMENOrdering Facility: [facility] Address: [address] [place] [address] Performed By: #### 5 8410-2 ####CERVANT[facility] LABORATORYCLIA [id number] [address] Comprehensive metabolic 2000 panelon 09-20-2024 Albumin [Mass/Vol] 3.1 g/dL Low 3.9-4.9 [facility] Comment on above: Order Comment: Speci men Type: BLOOD SPECIMENOrdering Facility: [facility] Address: [address] [place] [address] Performed By: #### 2 4323-8, 66267-6 ####CERVANT[facility] LABORATORYCLIA [id number] [address] [place] ALP [Catalytic activity/Vol] 41 U/L Normal 34-123 [facility] Comment on above: Order Comment: Speci men Type: BLOOD SPECIMENOrdering Facility: [facility] Address: [address] [place] [id number] Performed By: #### 2 432-8, ####CERVANT[facility] LABORATORYCLIA [id number] [address] ALT [Catalytic activity/Vol] 7 U/L Normal 7-38 [facility] Comment on above: Order Comment: Speci men Type: BLOOD SPECIMENOrdering Facility: [facility] Address: [address] [place] [address] Performed By: #### 2 8, ####CERVANT[facility] LABORATORYCLIA [id number] [address] Anion gap [Moles/Vol] 7 mmol/L Low 8-15 [facility] Comment on above: Order Comment: Speci men Type: BLOOD SPECIMENOrdering Facility: [facility] Address: [address] [place] [address] Performed By: #### 2 4323-01, ####CERVANT[facility] LABORATORYCLIA [id number] [address] AST [Catalytic activity/Vol] 16 U/L Normal 13-35 [facility] Comment on above: Order Comment: Speci men Type: BLOOD SPECIMENOrdering Facility: [facility] Address: [address] [place] [id number] Performed By: #### 2 4328, ####CERVANT[facility] LABORATORYCLIA [id number] [address] Bilirubin [Mass/Vol] 0.4 mg/dL Normal 0.2-1.3 [facility] Comment on above: Order Comment: Speci men Type: BLOOD SPECIMENOrdering Facility: [facility] Address: [address] [place] [place] [id number] Performed By: #### 2 432-8, ####CERVANTES LABORATORYCLIA [id number] [place] [address] [place] Calcium [Mass/Vol] 8.9 mg/dL Normal 8.5-10.2 [facility] Comment on above: Order Comment: Speci men Type: BLOOD SPECIMENOrdering Facility: [facility] Address: [address] [place] [address] Performed By: #### 2 4323-8, ####CERVANTES LABORATORYCLIA [id number] [place] [address] [place] Chloride [Moles/Vol] 102 mmol/L Normal 98-107 [facility] Comment on above: Order Comment: Speci men Type: BLOOD SPECIMENOrdering Facility: [facility] Address: [address] [place] [address] Performed By: #### 2 4323-8, ####CERVANTES LABORATORYCLIA [id number] [place] [address] [place] CO2 [Moles/Vol] 29 mmol/L Normal 22-30 [facility] Comment on above: Order Comment: Speci men Type: BLOOD SPECIMENOrdering Facility: [facility] Address: [address] [place] [address] Performed By: #### 2 4323-8, ####CERVANTES LABORATORYCLIA [id number] [place] [address] [place] Creatinine [Mass/Vol] 0.82 mg/dL Normal 0.58-0.96 [facility] Comment on above: Order Comment: Speci men Type: BLOOD SPECIMENOrdering Facility: [facility] Address: [address] [place] [address] Performed By: #### 2 4323-8, ####CERVANTES LABORATORYCLIA [id number] [place] [id number] [facility] [place] Creatinine and Glomerular filtration rate.predicted panel (S/P/Bld) 76 mL/min/1.73m??? Normal >=60 [facility] Comment on above: Order Comment: Speci men Type: BLOOD SPECIMENOrdering Facility: [facility] Address: [address] [place] [address] Result Comment: Winifred mated Glomerular Filtration Rate (eGFR) is calculated using the 2020 CKD-EPI creatinine equation. This equation utilizes serum creatinine, sex, and age as parameters. The creatinine assay has traceable calibration to isotope dilution-mass spectrometry. Refer to KDIGO guidelines for clinical interpretation. In patients with unstable renal function, e.g. those with acute kidney injury, the eGFR may not accurately reflect actual GFR. Performed By: #### 2 4323-8, ####[facility] LABORATORYCLIA [id number] [place] [address] [place] Glucose [Mass/Vol] 134 mg/dL High 74-99 [facility] Comment on above: Order Comment: Suzanne garcia Type: BLOOD SPECIMENOrdering Facility: [facility] Address: [address] [place] [address] Result Comment: The [place] Diabetes Association (ADA) provides guidance for cutoff values for fasting glucose and random glucose. The ADA defines fasting as no caloric intake for at least 8 hours. Fasting plasma glucose results between 100 to 125 mg/dL indicate increased risk for diabetes (prediabetes). Fasting plasma glucose results greater than or equal to 126 mg/dL meet the criteria for diagnosis of diabetes. In the absence of unequivocal hyperglycemia, results should be confirmed by repeat testing. In a patient with classic symptoms of hyperglycemia or hyperglycemic crisis, random plasma glucose results greater than or equal to 200 mg/dL meet the criteria for diagnosis of diabetes. Reference: Standards of Medical Care in Diabetes 2016, [place] [employer] Association. Diabetes Care. 2016.39(Suppl 1). Performed By: #### 2 432-8, ####[facility] LABORATORYCLIA [id number] [place] [address] [place] Potassium [Moles/Vol] 4.7 mmol/L Normal 3.7-5.1 [facility] Comment on above: Order Comment: Suzanne garcia Type: BLOOD SPECIMENOrdering Facility: [facility] Address: [address] [id number] Performed By: #### 2 4323-8, ####[facility] LABORATORYCLIA [id number] [place] [address] [place] Protein [Mass/Vol] 5.9 g/dL Low 6.3-8.0 [facility] Comment on above: Order Comment: Speci men Type: BLOOD SPECIMENOrdering Facility: [facility] Address: [address] [place] [address] Performed By: #### 2 4323-8, ####[facility] LABORATORYCLIA [id number] [place] [address] [place] Sodium [Moles/Vol] 138 mmol/L Normal 136-144 [facility] Comment on above: Order Comment: Speci men Type: BLOOD SPECIMENOrdering Facility: [facility] Address: [address] [place] [address] Performed By: #### 2 4323-8, ####[facility] LABORATORYCLIA [id number] [address] [place] Urea nitrogen [Mass/Vol] 11 mg/dL Normal 7-21 [facility] Comment on above: Order Comment: Speci men Type: BLOOD SPECIMENOrdering Facility: [facility] Address: [address] [place] [address] Performed By: #### 2 4323-8, ####[facility] LABORATORYCLIA [id number] [place] [address] [place] Magnesium SerPl-mCncon 09-20 Magnesium [Mass/Vol] 1.9 mg/dL Normal 1.7-2.3 [facility] Comment on above: Order Comment: Speci men Type: BLOOD SPECIMENOrdering Facility: [facility] Address: [address] [place] [address] Performed By: #### 2 4323-8, ####[facility] LABORATORYCLIA [id number] [place] [id number] [place] PT panel Coag (PPP)on 2024 INR Coag (PPP) [Relative time] 1.6 {INR} High 0.9-1.3 [facility] Comment on above: Order Comment: Speci men Type: BLOOD SPECIMENOrdering Facility: [facility] Address: [address] [place] [address] Result Comment: Kaycee min K Antagonist (VKA) Therapeutic Range: INR 2 to 3 (Target INR of 2.5) Note: For patients treated with VKA drugs, such as warfarin, the [place] [employer] 2012 Guideline recommends a therapeutic INR range of 2 to 3 (target INR of 2.5). This recommendation includes high-risk patients with antiphospholipid syndrome with previous arterial or venous thromboembolism, current-generation mechanical or bioprosthetic aortic heart valve replacement. Note: Patients with mechanical aortic valve replacement and additional risk factors for thromboembolic events (atrial fibrillation, previous thromboembolism, LV dysfunction, hypercoagulable conditions) or an older generation mechanical AVR (i.e., ball in-Cage) or any mechanical MVR should have a INR therapeutic range of 2.5 to 3.5 (target INR of 3). Keegan GH, et al. Chest 2012, 141:7S-47S Roshni CASTILLO et al. [facility] 2017, 70: 252-289 Performed By: #### 3 4528-0 ####[facility] LABORATORYCLIA [id number] [address] OF [facility] PT Coag (PPP) [Time] 16.7 s High 9.7-13.0 [facility] Comment on above: Order Comment: Speci men Type: BLOOD SPECIMENOrdering Facility: [facility] Address: [address] [place] [address] Performed By: #### 3 4528-0 ####[facility] LABORATORYCLIA [id number] [address] OF [facility] THERAPY NTon 09-20-2024 THERAPY NT HNO ID: [id number] Author: CHRISTIANO MAYEN OT/Abiodun Service: ? Author Type: Occupational Therapist Type: Therapy (PT/OT/Speech/Resp) Filed: 09/20/2024 11:14 Note Text: Summary: OT Evaluation Occupational Therapy Evaluation Summary SERVICE DATE: 09/20/2024 SERVICE TIME: 1031 to 1106 ROOM: [id number] OT 6 Clicks Score: 14 DISCHARGE RECOMMENDATIONS Subacute/SNF Recommended Discharge Disposition Due to: Functional deficits requiring ongoing therapy service prior to discharge home., ADL impairment, Anticipated community discharge, Functional status decline Anticipated Discharge Needs: Physical Assist at Home, Supervision at Home Physical Assist at Home for: Transfers, Ambulation, Cleaning, Laundry, Meals, Medication Management, Safety, Self Care, Shopping, Transportation, Wheelchair Mobility Supervision at Home due to: Decreased safety awareness, Impaired cognition Recommended Discharge Equipment: No equipment needs anticipated ASSESSMENT Response to Therapy Interventions: Cognitive Deficits, Coping Deficits, Good Participation in Activities, Low Activity Tolerance, Pain, Requires Additional Time to Complete Activities Patient presents with generalized weakness/fatigue, impaired tolerance to activity and functional endurance d/t LLE pain and weakness, demo coping deficits and intermittently tearful throughout, functioning below baseline with ADLs and mobility/transfers, presents as a fall risk PRECAUTIONS Fall Risk, Lines/Tubes/Drains, Bed/Chair Alarm CURRENT HOSPITAL COURSE Pt was seen in this ED earlier today after she sustained a fall. Pt was cleared and discharged back to the facility. Pt states the pain in her LEFT leg has increased and the facility is unable to help her as she is struggling to ambulate. Patient admitted to [facility] with Dx: Decreased activities of daily living (ADL), Fall at home, initial encounter Relevant Past Medical History: DM, edema, depression,asthma, obesity, irsutism, venous insufficiency, oseteomyeliitis of foot, SLE, cerebral palsy, pulmonary embolism, hypothyroidism, insomnai, CAD, migraines, HTN, hysterectomy HOME LIVING Patient Lives With: Facility Care, Spouse, Other: See Comment Comments: RETIREMENT with spouse Assistance Available: 24-Hour Comments: RETIREMENT staff for toileting and shower Entry To Home: No Stairs Number Of Stairs To Bed/Bath: 0 Tub/Shower Type: Accessible WIS with shower chair + grab bars, has assistance/supervision for transfers Laundry: RETIREMENT staff completes Equipment Owned: Lift Chair, Commode- Bedside, Wheelchair- Manual, Grab Bars- Toilet, Shower Chair, Hand Held Shower PRIOR FUNCTIONAL LEVEL Required Assistance, History of Falls Assistance Required With: Transfers, Cleaning, Laundry, Meals, Self Care, Shopping, Transportation, Safety Patient reports she uses lift function of chair for transfer. non ambulatory since 10 years ago. Assist for shower, toileting, dressing, setup assist for grooming and feeding, and assist for IADLs but pt manages own meds. normally transfers from surface to surface preferrably to right side indep with occasional supervision/assistance for shower transfers. reports 3 falls in the past 6 months. ind propeling w/c with right side. sleeps on the lift chair Baseline Cognition: Oriented to time, Oriented to place, Oriented to self SUBJECTIVE RN cleared to work with, patient crying and wimpering upon arrival d/t pain and difficulty coping COGNITION Orientation Deficits: (AOx3) Responsiveness: Alert, Awake Follows Commands: 2-step Commands Attention Deficits: Distractible THERAPY DIAGNOSIS Reduced mobility-other, Decreased activities of daily living (ADL), Muscle Weakness (generalized), Unsteadiness on feet TREATMENT INTERVENTIONS Evaluation, Self Alf Management (92337) Timed Code Treatment (minutes): 17 Skilled Treatment Time (minutes): 32 TRAINING AND EDUCATION PROVIDED Activity Adaptation/Compensatory Strategies, Adaptive Equipment/DME, Bed Mobility, Benefits of In-Hospital Mobility, Cognitive Skills, Command Following, Coping Skills/Resiliency, Discharge Planning, Expected Functional Level, Functional Mobility Involving ADLs, Insight into Deficits, Lower Extremity Dressing, Memory/Attention, Orientation, Positioning, Pain Management, Safety/Judgment, Role of Occupational Therapy, Sitting Balance to Improve Mclennan with ADLs/Self-Care, Standing Balance to Improve Mclennan with ADLs/Self-Care, Toileting , Transfer - Sit to Stand THERAPEUTIC SKILLS USED Activity Dosing, Cues for Sequencing/Proper Technique for Activity, Cuing Tactile, Cuing Verbal, Cuing Visual, Facilitation of Joint Range of Motion, Movement Facilitation, Muscle Activation Facilitation, Physical Assist, Teach-Back for Ed (more content not included)... Normal [facility] CBC panel Auto (Bld)on 09-19 Erythrocyte distribution width (RBC) [Ratio] 13.2 % Normal 11.5-15.0 [facility] Comment on above: Order Comment: Speci men Type: BLOOD SPECIMENOrdering Facility: [facility] Address: [address] [place] [address] Performed By: #### 5 8410-2 ####[facility] LABORATORYCLIA [id number] [address] [place] Hematocrit (Bld) [Volume fraction] 33.3 % Low 36.0-46.0 [facility] Comment on above: Order Comment: Speci men Type: BLOOD SPECIMENOrdering Facility: [facility] Address: [address] [place] [address] Performed By: #### 5 8410-2 ####[facility] LABORATORYCLIA [id number] [address] [place] Hemoglobin (Bld) [Mass/Vol] 11.0 g/dL Low 11.5-15.5 [facility] Comment on above: Order Comment: Speci men Type: BLOOD SPECIMENOrdering Facility: [facility] Address: [address] [place] [address] Performed By: #### 5 8410-2 ####[facility] LABORATORYCLIA [id number] [address] [place] MCH (RBC) [Entitic mass] 30.4 pg Normal 26.0-34.0 [facility] Comment on above: Order Comment: Speci men Type: BLOOD SPECIMENOrdering Facility: [facility] Address: [address] [place] [address] Performed By: #### 5 8410-2 ####[facility] LABORATORYCLIA [id number] [address] [place] MCHC (RBC) [Mass/Vol] 33.0 g/dL Normal 30.5-36.0 [facility] Comment on above: Order Comment: Speci men Type: BLOOD SPECIMENOrdering Facility: [facility] Address: [address] [place] [address] Performed By: #### 5 8410-2 ####[facility] LABORATORYCLIA [id number] [address] [place] MCV (RBC) [Entitic vol] 92.0 fL Normal 80.0-100.0 [facility] Comment on above: Order Comment: Speci men Type: BLOOD SPECIMENOrdering Facility: [facility] Address: [address] [place] [address] Performed By: #### 5 8410-2 ####[facility] LABORATORYCLIA [id number] [place] [address] [place] Nucleated RBC (Bld) [#/Vol] 10*3/uL Normal <0.01 [facility] Comment on above: Order Comment: Speci men Type: BLOOD SPECIMENOrdering Facility: [facility] Address: [address] [place] [address] Performed By: #### 5 8410-2 ####[facility] LABORATORYCLIA [id number] [address] [place] Platelet mean volume (Bld) [Entitic vol] 10.2 fL Normal 9.0-12.7 [facility] Comment on above: Order Comment: Speci men Type: BLOOD SPECIMENOrdering Facility: [facility] Address: [address] [place] [address] Performed By: #### 5 8410-2 ####[facility] LABORATORYCLIA [id number] [address] [place] Platelets (Bld) [#/Vol] 158 10*3/uL Normal 150-400 [facility] Comment on above: Order Comment: Speci men Type: BLOOD SPECIMENOrdering Facility: [facility] Address: [address] [place] [address] Performed By: #### 5 8410-2 ####[facility] LABORATORYCLIA [id number] [place] [address] [place] RBC (Bld) [#/Vol] 3.62 10*6/uL Low 3.90-5.20 [facility] Comment on above: Order Comment: Speci men Type: BLOOD SPECIMENOrdering Facility: [facility] Address: [address] [place] [address] Performed By: #### 5 8410-2 ####[facility] LABORATORYCLIA [id number] [place] [address] [place] WBC (Bld) [#/Vol] 7.29 10*3/uL Normal 3.70-11.00 [facility] Comment on above: Order Comment: Speci men Type: BLOOD SPECIMENOrdering Facility: [facility] Address: [address] [place] [address] Performed By: #### 5 8410-2 ####[facility] LABORATORYCLIA [id number] [place] [id number] [facility] [place] Comprehensive metabolic 2000 panelon 09-19-2024 Albumin [Mass/Vol] 2.7 g/dL Low 3.9-4.9 [facility] Comment on above: Order Comment: Speci men Type: BLOOD SPECIMENOrdering Facility: [facility] Address: [address] [place] [address] Performed By: #### 2 4323-8, 73253-4 ####[facility] LABORATORYCLIA [id number] [place] [address] [place] ALP [Catalytic activity/Vol] 36 U/L Normal 34-123 [facility] Comment on above: Order Comment: Speci men Type: BLOOD SPECIMENOrdering Facility: [facility] Address: [address] [place] [address] Performed By: #### 2 4323-8, 67448-5 ####[facility] LABORATORYCLIA [id number] [place] [id number] [facility] [place] ALT [Catalytic activity/Vol] 6 U/L Low 7-38 [facility] Comment on above: Order Comment: Speci men Type: BLOOD SPECIMENOrdering Facility: [facility] Address: [address] [place] [address] Performed By: #### 2 4323-8, 30389-5 ####[facility] LABORATORYCLIA [id number] [address] Anion gap [Moles/Vol] 13 mmol/L Normal 8-15 [facility] Comment on above: Order Comment: Speci men Type: BLOOD SPECIMENOrdering Facility: [facility] Address: [address] [place] [address] Performed By: #### 2 4323-8, ####[facility] LABORATORYCLIA [id number] [place] [address] [place] AST [Catalytic activity/Vol] 19 U/L Normal 13-35 [facility] Comment on above: Order Comment: Speci men Type: BLOOD SPECIMENOrdering Facility: [facility] Address: [address] [place] [address] Performed By: #### 2 4328, ####[facility] LABORATORYCLIA [id number] [place] [address] [place] Bilirubin [Mass/Vol] 0.5 mg/dL Normal 0.2-1.3 [facility] Comment on above: Order Comment: Speci men Type: BLOOD SPECIMENOrdering Facility: [facility] Address: [address] [place] [address] Performed By: #### 2 4328, ####[facility] LABORATORYCLIA [id number] [place] [address] [place] Calcium [Mass/Vol] 8.6 mg/dL Normal 8.5-10.2 [facility] Comment on above: Order Comment: Speci men Type: BLOOD SPECIMENOrdering Facility: [facility] Address: [address] [place] [address] Performed By: #### 2 4323-8, ####[facility] LABORATORYCLIA [id number] [place] [address] [place] Chloride [Moles/Vol] 103 mmol/L Normal 98-107 [facility] Comment on above: Order Comment: Speci men Type: BLOOD SPECIMENOrdering Facility: [facility] Address: [address] [place] [address] Performed By: #### 2 4323-8, ####[facility] LABORATORYCLIA [id number] [place] [address] [place] CO2 [Moles/Vol] 24 mmol/L Normal 22-30 [facility] Comment on above: Order Comment: Speci men Type: BLOOD SPECIMENOrdering Facility: [facility] Address: [address] [place] [address] Performed By: #### 2 4323-8, ####[facility] LABORATORYCLIA [id number] [place] [address] [place] [facility] Creatinine [Mass/Vol] 0.76 mg/dL Normal 0.58-0.96 [facility] Comment on above: Order Comment: Suzanne garcia Type: BLOOD SPECIMENOrdering Facility: [facility] Address: [address] [place] [address] Performed By: #### 2 4323-8, ####[facility] LABORATORYCLIA [id number] [place] [id number] [facility] Creatinine and Glomerular filtration rate.predicted panel (S/P/Bld) 83 mL/min/1.73m??? Normal >=60 [facility] Comment on above: Order Comment: Suzanne garcia Type: BLOOD SPECIMENOrdering Facility: [facility] Address: [address] [place] [address] Result Comment: Winifred mated Glomerular Filtration Rate (eGFR) is calculated using the 2020 CKD-EPI creatinine equation. This equation utilizes serum creatinine, sex, and age as parameters. The creatinine assay has traceable calibration to isotope dilution-mass spectrometry. Refer to KDIGO guidelines for clinical interpretation. In patients with unstable renal function, e.g. those with acute kidney injury, the eGFR may not accurately reflect actual GFR. Performed By: #### 2 4323-8, ####[facility] LABORATORYCLIA [id number] [place] [id number] [place] Glucose [Mass/Vol] 106 mg/dL High 74-99 [facility] Comment on above: Order Comment: Suzanne radha Type: BLOOD SPECIMENOrdering Facility: [facility] Address: [address] [place] [address] Result Comment: The [place] Diabetes Association (ADA) provides guidance for cutoff values for fasting glucose and random glucose. The ADA defines fasting as no caloric intake for at least 8 hours. Fasting plasma glucose results between 100 to 125 mg/dL indicate increased risk for diabetes (prediabetes). Fasting plasma glucose results greater than or equal to 126 mg/dL meet the criteria for diagnosis of diabetes. In the absence of unequivocal hyperglycemia, results should be confirmed by repeat testing. In a patient with classic symptoms of hyperglycemia or hyperglycemic crisis, random plasma glucose results greater than or equal to 200 mg/dL meet the criteria for diagnosis of diabetes. Reference: Standards of Medical Care in Diabetes 2016, [place] [employer]. Diabetes Care. 2016.39(Suppl 1). Performed By: #### 2 4328, ####[facility] LABORATORYCLIA [id number] [place] [address] [place] Potassium [Moles/Vol] 4.7 mmol/L Normal 3.7-5.1 [facility] Comment on above: Order Comment: Suzanne garcia Type: BLOOD SPECIMENOrdering Facility: [facility] Address: [address] [place] [address] Performed By: #### 2 4328, ####[facility] LABORATORYCLIA [id number] [place] [address] [place] Protein [Mass/Vol] 5.3 g/dL Low 6.3-8.0 [facility] Comment on above: Order Comment: Suzanne garcia Type: BLOOD SPECIMENOrdering Facility: [facility] Address: [address] [place] [address] Performed By: #### 2 4328, ####C[facility] LABORATORYCLIA [id number] [place] [address] [place] Sodium [Moles/Vol] 140 mmol/L Normal 136-144 [facility] Comment on above: Order Comment: Suzanne garcia Type: BLOOD SPECIMENOrdering Facility: [facility] Address: [address] [place] [address] Performed By: #### 2 4328, ####[facility] LABORATORYCLIA [id number] [place] [address] [place] Urea nitrogen [Mass/Vol] 10 mg/dL Normal 7-21 [facility] Comment on above: Order Comment: Suzanne garcia Type: BLOOD SPECIMENOrdering Facility: [facility] Address: [address] [place] [address] Performed By: #### 2 4323-8, 21361-0 ####[facility] [id number] [place] [address] [place] HISTORY PHYSICALon HISTORY PHYSICAL HNO ID: [id number] Author: ARNOL LIN PA-C Service: Hospital Medicine Author Type: Physician Process Control Board Operator Type: H&P Filed: 09/19/2024 01:01 Note Text: Attestation signed by Mable Barker DO at 09/27/2024 10:43 PM Attending Note I have not personally performed a face to face assessment of the patient. I have reviewed the [facility] note. Signature: Mable Barker Date: 09/27/2024 Time: 10:43 PM DEPARTMENT OF HOSPITAL MEDICINE HISTORY AND PHYSICAL EXAM SERVICE DATE: 09/19/2024 SERVICE TIME: 12:25 AM Primary Care Physician: Raf Casey MD, NIGHT AND WEEKEND COVERAGE: [facility] COVERAGE: Days: [phone], please page attending physician. Nights: [phone], please page [facility] Night coverage pager [phone]. Subjective CHIEF COMPLAINT: Fall, left knee pain HPI: This is a 74 year old female with a PMH significant for Asthma, CAD, Cartoid Stenosis, Cerebral Palsy, Depression, Hyperlipidemia, Hypertension, Hypothyroidism, Migraines, Obesity, SLE with Lupus Anticoagulant Disorder, and PE on Coumadin who presents today for evaluation of left knee pain after a fall. The patient tells me that yesterday morning she was trying to transfer from her lift chair to her regular wheelchair with help from her . She noticed that her clothing was caught on her lift chair and she was unable to transfer appropriately and her was unable to help her. She told him to let her down to the ground but didn't realize her left leg was also caught on the lift chair. She tells me that her left leg and knee "twisted" on her way to the ground and she had pain afterwards. She is non-ambulatory at baseline due to history of CP but was concerned because of the pain to the left knee as well as concern for her current facility to care for her needs so she presented to the ED for further evaluation and possible placement needs. No fever, chills, TENORIO, visual changes, URI symptoms, chest pain, palpitations, SOB, cough, abdominal pain, N/V/D, urinary symptoms, skin changes, peripheral edema, paresthesia or focal weaknesses. [facility] Course: HDS, afebrile. Labs unremarkable. Imaging including XR L KNEE/HIP/ANKLE negative for fracture. CT L KNEE negative for fracture, small joint effusion noted. The patient was admitted under Medicine for PT/OT evaluations and placement needs. PAST MEDICAL HISTORY Diagnosis Date CAD (coronary artery disease) Carotid artery stenosis Cerebral palsy (HCC) Chronic depressive personality disorder Diarrhea Dyslipidemia Edema bilat Hirsutism Hypertension Hypothyroid Insomnia Migraines Morbid obesity (HCC) Osteomyelitis of foot (HCC) Pulmonary embolism (HCC) Pulmonary embolism (HCC) 2011 SLE (systemic lupus erythematosus) ([facility]) Type II or unspecified type diabetes mellitus without mention of complication, uncontrolled Unspecified asthma(493.90) Unspecified venous (peripheral) insufficiency PAST SURGICAL HISTORY Procedure Laterality Date APPENDECTOMY child ARTHROSCOPY KNEE DIAGNOSTIC W/WO SYNOVIAL BX SPX Arthroscopy, knee right ARTHRP KNE CONDYLEANDPLATU MEDIALANDLAT COMPARTMENTS Right 12/2013 Dr Fany Cervantes. COLONOSCOPY FLX DX W/COLLJ SPEC WHEN PFRMD 10/23/06 COLONOSCOPY FLX DX W/COLLJ SPEC WHEN PFRMD 11/22/12 LAPAROSCOPY SURG CHOLECYSTECTOMY 06/06/09 PAST SURGICAL HISTORY OF 2005 Repair of torn R femoral artery PAST SURGICAL HISTORY OF Left foot surgery X 2 PERC TRANSL COR ANGIO 2007 Percutaneous Transluminal Coronary Angio Status TONSILLECTOMY PRIMARY/SECONDARY Tonsillectomy TOTAL ABDOMINAL HYSTERECT W/WO RMVL TUBE OVARY 1998 Hysterectomy, BSO TRANSCATH STENT ADDN VESSEL,PERCUT 2004 Transcath stent addn vessel percut TRANSCATH STENT INIT VESSEL,PERCUT 2003 Transcath stent init vessel percut FAMILY HISTORY Problem Relation Age of Onset Asthma Mother Diabetes Mother Heart Mother Cancer Mother COLON COPD Mother Hypertension Mother Osteoporosis Father Heart Father Cancer Father lung COPD Father other (AAA) Father other (brain tumor) Brother brain other (AAA) Paternal Grandfather Social History Tobacco Use Smoking status: Never Smokeless tobacco: Never Tobacco comments: Lived with 2 smoking parents for 18 years. Spouse non-smoke. Vaping Use Vaping status: Never Used Substance Use Topics Alcohol use: Yes Comment: rare Drug use: No PRIOR TO ADMISSION MEDICATIONS: Prior to Admission Medications Prescriptions Last Dose Informant Patient Reported? Taking? COMPOUNDED PRESCRIPTION No No Sig: Hospital bed all electric with adjustable head and feet. 415.19; 343.8; 782.3; 787.91; V43.65 Cholecalciferol, Vitamin D3, 50 mcg (2,000 unit) cap Yes No Sig: Take 1 capsule by mouth once daily. HYDROcodone-loyda (more content not included)... Normal [facility] Magnesium SerPl-mCncon 09-19 Magnesium [Mass/Vol] 1.8 mg/dL Normal 1.7-2.3 [facility] Comment on above: Order Comment: Speci men Type: BLOOD SPECIMENOrdering Facility: [facility] Address: [address] [place] [address] Performed By: #### 2 4323-8, 18694-1 ####[facility] LABORATORYCLIA [id number] [address] OF [facility] NUTRITIONon 09-19-2024 NUTRITION HNO ID: [id number] Author: DEVYN KAHN RD Service: Nutrition Therapy Author Type: Registered Dietitian Type: Nutrition Filed: 09/19/2024 13:21 Note Text: NUTRITION THERAPY SCREEN NOTE SERVICE DATE: 09/19/2024 SERVICE TIME: 9:59 AM Care Plan: Continue current diet Supplements: Ensure Max Monitor and Evaluation: Meet greater than 75% of estimated needs HPI: Fall, knee pain, Cerebral Palsy. DM2, SLE, PE, CKD. Acquired Hypothyroidism Intake History: Nutrition Intake Prior to Admission: Greater than 75% estimated energy needs (Drinks [place] Instant Breakfast and either Premier or Melton ONS at home daily) greater than or equal to 1 month Current Nutrition Intake: (breakfast 50% this morning.) Nurse present in room at time of RD visit. Pt complained of not receiving cheese in her eggs this morning for breakfast. Allergy order corrected per nursing. Pt expressed resistance to RD, explained role of inpatient clinical RD to pt. Pt willing to trial Ensure Max. Pt to order [place] Instant Breakfast. Diet Orders (From admission, onward) Start Ordered 09/19/24 1315 DIET SUPPLEMENTS NOW Question Answer Comment Supplement 1 ENSURE MAX CHOCOLATE Supplement 1 Frequency PM SNACK 09/19/24 1312 09/19/24 0215 Diet Regular START NOW 09/19/24 0212 Anthropometrics: Height: 157.5 cm (5' 2") Weight: 99 kg (218 lb 4.1 oz) Usual Weight: 105.2 kg (232 lb) 08/27/23 Weight Change: Not clinically significant weight loss Lines, Drains, and Airways Drain Duration External Collection Device 09/18/24 2332 [facility] <1 day MNT Billing: $ Initial Assessment: 1-15 minutes SIGNATURE: Devyn Kahn RD PATIENT NAME: Randolph Hunter DATE: September 19, 2024 TIME: 1:12 PM Normal [facility] PT panel Coag (PPP)on 2024 INR Coag (PPP) [Relative time] 1.7 {INR} High 0.9-1.3 [facility] Comment on above: Order Comment: Speci men Type: BLOOD SPECIMENOrdering Facility: [facility] Address: [address] [place] [address] Result Comment: Kaycee min K Antagonist (VKA) Therapeutic Range: INR 2 to 3 (Target INR of 2.5) Note: For patients treated with VKA drugs, such as warfarin, the [employer] 2012 Guideline recommends a therapeutic INR range of 2 to 3 (target INR of 2.5). This recommendation includes high-risk patients with antiphospholipid syndrome with previous arterial or venous thromboembolism, current-generation mechanical or bioprosthetic aortic heart valve replacement. Note: Patients with mechanical aortic valve replacement and additional risk factors for thromboembolic events (atrial fibrillation, previous thromboembolism, LV dysfunction, hypercoagulable conditions) or an older generation mechanical AVR (i.e., ball in-Cage) or any mechanical MVR should have a INR therapeutic range of 2.5 to 3.5 (target INR of 3). Keegan SOUZA, et al. Chest 2012, 141:7S-47S Roshni CASTILLO, et al. [facility] 2017, 70: 252-289 Performed By: #### 3 4528-0 ####TR[facility]ID[facility] LABORATORYCLIA [id number] [place] [id number] [facility] PT Coag (PPP) [Time] 17.9 s High 9.7-13.0 [facility] Comment on above: Order Comment: Speci men Type: BLOOD SPECIMENOrdering Facility: [facility] Address: [address] [place] [address] Performed By: #### 3 4528-0 ####TRINID[facility] LABORATORYCLIA [id number] [place] [id number] [facility] THERAPY NTon 09-19-2024 THERAPY NT HNO ID: [id number] Author: ESTELLE CAGE PT Service: Physical Therapy Author Type: Physical Therapist Type: Therapy (PT/OT/Speech/Resp) Filed: 09/19/2024 17:41 Note Text: Summary: PT evaluation Physical Therapy Evaluation Summary SERVICE DATE: 09/19/2024 SERVICE TIME: 1545 to 1629 ROOM: [place] [address] PT 6 Clicks Score: 12 DISCHARGE RECOMMENDATIONS Subacute/SNF Recommended Discharge Disposition Comments: Pt is currently performing functional mobility below PLOF and would benefit from continued skilled PT to reduce risk of falls and rehospitalization. Recommended Discharge Disposition Due to: Functional deficits requiring ongoing therapy service prior to discharge home., Anticipated community discharge, Balance deficits, Functional status decline, Requires multiple therapy disciplines Anticipated Discharge Needs: Physical Assist at Home, Supervision at Home Physical Assist at Home for: Transfers, Cleaning, Meals, Laundry, Medication Management, Safety, Self Care, Shopping, Transportation Supervision at Home due to: Decreased safety awareness Recommended Discharge Equipment: No equipment needs anticipated ASSESSMENT Response to Therapy Interventions: Good Participation in Activities, Low Activity Tolerance, Pain, Requires Encouragement to Complete Activities, Slow Progression with Functional Activities/Skills patient presents post fall at home, generalized weakness left more than right and impaired functional mobility. patient reports unable to amb x 10 years however ind with transfers and currently requiring mod A to stand and unable to progress to chair. patient would benefit from skilled PT to increase strength and progress safe functional mobility. no safe chair surface in room/recommend w/c to simulate transfers PRECAUTIONS Fall Risk, Lines/Tubes/Drains, Bed/Chair Alarm CURRENT HOSPITAL COURSE Patient presents with: Fall: PT presents to the ED from an assisted living facility via EMS. Pt was seen in this ED earlier today after she sustained a fall. PT was cleared and discharged back to the facility. PT states the pain in her LEFT leg has increased and the facility is unable to help her as she is struggling to ambulate. Pt has no other complaints at this time. Leg Injury . Patient admitted to [facility] with Dx: Decreased activities of daily living (ADL), Fall at home, initial encounter Relevant Past Medical History: DM, edema, depression,asthma, obesity, irsutism, venous insufficiency, oseteomyeliitis of foot, SLE, cerebral palsy, pulmonary embolism, hypothyroidism, insomnai, CAD, migraines, HTN, hysterectomy HOME LIVING Patient Lives With: Spouse Assistance Available: 24-Hour, Other: See Comment Comments: RETIREMENT staff for toileting and shower Entry To Home: No Stairs Number Of Stairs To Bed/Bath: 0 Equipment Owned: Lift Chair, Commode- Bedside, Wheelchair- Manual PRIOR FUNCTIONAL LEVEL Required Assistance, History of Falls Assistance Required With: Cleaning, Laundry, Meals, Safety, Self Care, Shopping, Transportation uses lift function of chair for transfer. non ambulatory since 10 years ago. A for shower, toileting and IADL. normally transfers from surface to surface preferrably to right side. happened to be with patient and assist for controlled lowering. ind propeling w/c with right side SUBJECTIVE patient agreeable to PT. THERAPY DIAGNOSIS Reduced mobility-other TREATMENT INTERVENTIONS Evaluation, Therapeutic Activity (27420) Timed Code Treatment (minutes): 25 Skilled Treatment Time (minutes): 44 $ Evaluation-Low (63954) Billed Units: 1 unit Therapeutic Activity (35596) Treatment Minutes: 25 $ Therapeutic Activity (72933) Billed Units: 2 units Range of Motion: WFL Except, ROM Limitation Comments ROM Limitation Comments: B LE grossly lacking 10-25 deg knee ex Strength: WFL Except, Strength Limitation Comments Strength Limitation Comments: MMT not performed, right LE grossly at least 3- to 4-/5 per clinical judgement and left at least 2-3/5 per clinical judgement based on functional mobility TRAINING AND EDUCATION PROVIDED Bed Mobility, Benefits of In-Hospital Mobility, Discharge Planning, Energy Conservation, Expected Functional Level, Falls Prevention, Positioning, Precautions/Restrictions, Pre-gait Activities, Role of Physical Therapy, Sitting Balance, Standing Balance, Transfers THERAPEUTIC SKILLS USED Activity Dosing, Cues for Sequencing/Proper Technique for Activity, Cuing Tactile, Cuing Verbal, Movement Facilitation, Muscle Activation Facilitation, Physical Assist, Postural Alignment Correction, Teach-Back for Education FUNCTIONAL STATUS Bed Mobility Supine To Sit: Modified Independent, Additional Information each direction with rail Sit to Supi (more content not included)... [facility] THERAPY NT HNO ID: [id number] Author: ESTELLE CAGE PT Service: Physical Therapy Author Type: Physical Therapist Type: Therapy (PT/OT/Speech/Resp) Filed: 09/19/2024 11:07 Note Text: Summary: PT missed visit PHYSICAL THERAPY MISSED VISIT SERVICE DATE: 09/19/2024 SERVICE TIME: 1105 ROOM: [place] [address] Patient not seen due to Patient Not Available. Discussed patient with RN and patient in the process of transferring to . Will approach as patient is available/appropriate. SIGNATURE: Estelle Cage PT PATIENT NAME: Randolph Hunter DATE: September 19, 2024 TIME: 11:06 AM Normal [facility] URINALYSIS, REFLEX MICROSCOP ICon 09-19-2024 Bilirubin Ql (U) Negative Normal Negative [facility] Comment on above: Order Comment: Speci men Type: URINE SPECIMENOrdering Facility: [facility] Address: [address] [place] [address] Performed By: #### L [id number] ####[facility] LABORATORYCLIA [id number] [address] Clarity (Unsp spec) Clear Normal Clear [facility] Comment on above: Order Comment: Speci men Type: URINE SPECIMENOrdering Facility: [facility] Address: [address] [place] [address] Performed By: #### L [id number] ####CERV[facility] LABORATORYCLIA [id number] [address] Color (U) Yellow Normal Yellow [facility] Comment on above: Order Comment: Speci men Type: URINE SPECIMENOrdering Facility: [facility] Address: [address] [place] [address] Performed By: #### L [id number] ####CERV[facility] LABORATORYCLIA [id number] [address] [place] Glucose Test strip (U) [Mass/Vol] Negative Normal Negative [facility] Comment on above: Order Comment: Speci men Type: URINE SPECIMENOrdering Facility: [facility] Address: [address] [place] [address] Performed By: #### L [id number] ####C[facility] LABORATORYCLIA [id number] [place] [address] [place] Hemoglobin Ql (U) Negative Normal Negative [facility] Comment on above: Order Comment: Speci men Type: URINE SPECIMENOrdering Facility: [facility] Address: [address] [place] [address] Performed By: #### L [id number] ####CERV[facility] LABORATORYCLIA [id number] [place] [address] [place] Ketones Ql (U) Negative Normal Negative [facility] Comment on above: Order Comment: Speci men Type: URINE SPECIMENOrdering Facility: [facility] Address: [address] [place] [address] Performed By: #### L [id number] ####CERV[facility] LABORATORYCLIA [id number] [place] [address] [place] Leukocyte esterase Test strip Ql (U) Negative Normal Negative [facility] Comment on above: Order Comment: Speci men Type: URINE SPECIMENOrdering Facility: [facility] Address: [address] [place] [address] Performed By: #### L [id number] ####[facility]ERV[facility] LABORATORYCLIA [id number] [place] [address] [place] Nitrite Ql (U) Negative Normal Negative [facility] Comment on above: Order Comment: Speci men Type: URINE SPECIMENOrdering Facility: [facility] Address: [address] [place] [address] Performed By: #### L [id number] ####[facility] LABORATORYCLIA [id number] [place] [address] [place] pH (U) 7.0 [pH] Normal 5.0-8.0 [facility] Comment on above: Order Comment: Speci men Type: URINE SPECIMENOrdering Facility: [facility] Address: [address] [place] [address] Performed By: #### L [id number] ####CERV[facility] LABORATORYCLIA [id number] [place] [address] [place] Protein (U) [Mass/Vol] Negative Normal Negative [facility] Comment on above: Order Comment: Speci men Type: URINE SPECIMENOrdering Facility: [facility] Address: [address] [place] [address] Performed By: #### L [id number] ####[facility] LABORATORYCLIA [id number] [address] Specific gravity (U) [Rel density] 1.010 Normal 1.005-1.03 0 [facility] Comment on above: Order Comment: Speci men Type: URINE SPECIMENOrdering Facility: [facility] Address: [address] [place] [address] Performed By: #### L [id number] ####[facility] LABORATORYCLIA [id number] [address] Urobilinogen Ql (U) 0.2 EU/dL Normal 0.2-1.0 EU/dL [facility] Comment on above: Order Comment: Speci men Type: URINE SPECIMENOrdering Facility: [facility] Address: [address] [place] [address] Performed By: #### L [id number] ####[facility] LABORATORYCLIA [id number] [address] ALLIED HEALTHon 09-18-2024 ALLIED HEALTH HNO ID: [id number] Author: OSVALDO BRUCE RT(R) Service: Radiology Author Type: Prn Occupational Therapist Type: Allied Health Filed: 09/18/2024 23:10 Note Text: Radiology Service Progress Note PATIENT NAME: Randolph Hunter DATE OF SERVICE: September 18, 2024 TIME: 11:09 PM PATIENT IDENTITY VERIFICATION COMPLETED USING TWO (2) IDENTIFIERS: Name and Date of confirmed by patient verbally and Name and Date of confirmed by identification band. FALL SCREENING: Has the patient had 2 falls in the last year or 1 fall with injury or currently using an Ambulatory Assistive Device (Walker, Cane, Wheelchair, Crutches, etc.)? Emergency Room Patient: Screened in ED PATIENT GENDER DATA: Assigned female at . status: : No status: NO. PATIENT RELEVANT IMPLANT DATA REVIEWED: Not Applicable PATIENT PRESENTS WITH AN IMPLANTABLE OR ATTACHED MUD ANALYSIS WELL LOGGING OPERATOR: No RADIOLOGY DEPARTMENT: General X-ray: Exam(s) Completed: Pelvis X-Ray: Pelvis with Hip Left Lower Extremity X-Ray(s): Ankle, Left PERIPHERAL IV DATA: Not applicable SIGNED BY: RT Lissett(R) September 18, 2024 11:09 PM [facility] ALLIED HEALTH HNO ID: [id number] Author: MONTSERRAT CUEVAS RT(R) Service: Radiology Author Type: Technologist Type: Allied Health Filed: 09/18/2024 10:32 Note Text: Radiology Service Progress Note PATIENT NAME: Randolph Hunter DATE OF SERVICE: September 18, 2024 TIME: 10:31 AM PATIENT IDENTITY VERIFICATION COMPLETED USING TWO (2) IDENTIFIERS: Name and Date of confirmed by patient verbally and Name and Date of confirmed by identification band. FALL SCREENING: Has the patient had 2 falls in the last year or 1 fall with injury or currently using an Ambulatory Assistive Device (Walker, Cane, Wheelchair, Crutches, etc.)? Emergency Room Patient: Screened in ED PATIENT GENDER DATA: Assigned female at . status: : No status: NO. PATIENT RELEVANT IMPLANT DATA REVIEWED: Not Applicable PATIENT PRESENTS WITH AN IMPLANTABLE OR ATTACHED MUD ANALYSIS WELL LOGGING OPERATOR: No RADIOLOGY DEPARTMENT: General X-ray: Exam(s) Completed: Lower Extremity X-Ray(s): Knee, AP / LAT Left PERIPHERAL IV DATA: Not applicable SIGNED BY: RT Geeta(R) September 18, 2024 10:31 AM [facility] CBC W Auto Differential pane l (Bld)on 09-18-2024 Basophils (Bld) [#/Vol] 10*3/uL Normal <0.11 [facility] Comment on above: Order Comment: Speci men Type: BLOOD SPECIMENOrdering Facility: [facility] Address: [address] [place] [address] Performed By: #### 5 7021-8 ####[facility] LABORATORYCLIA [id number] [address] OF [facility] Basophils/100 WBC (Bld) 0.3 % Normal [facility] Comment on above: Order Comment: Speci men Type: BLOOD SPECIMENOrdering Facility: [facility] Address: [address] [place] [address] Performed By: #### 5 7021-8 ####[facility] LABORATORYCLIA [id number] [address] Differential cell count method Nom (Bld) Auto Normal [facility] Comment on above: Order Comment: Speci men Type: BLOOD SPECIMENOrdering Facility: [facility] Address: [address] [place] [address] Performed By: #### 5 7021-8 ####CERV[facility] LABORATORYCLIA [id number] [place] [address] [place] Eosinophils (Bld) [#/Vol] 0.16 10*3/uL Normal <0.46 [facility] Comment on above: Order Comment: Speci men Type: BLOOD SPECIMENOrdering Facility: [facility] Address: [address] [place] [address] Performed By: #### 5 7021-8 ####CERV[facility] LABORATORYCLIA [id number] [address] [place] Eosinophils/100 WBC (Bld) 2.1 % Normal [facility] Comment on above: Order Comment: Speci men Type: BLOOD SPECIMENOrdering Facility: [facility] Address: [address] [place] [address] Performed By: #### 5 7021-8 ####CERV[facility] LABORATORYCLIA [id number] [address] [place] Erythrocyte distribution width (RBC) [Ratio] 13.3 % Normal 11.5-15.0 [facility] Comment on above: Order Comment: Speci men Type: BLOOD SPECIMENOrdering Facility: [facility] Address: [address] [place] [address] Performed By: #### 5 7021-8 ####CERV[facility] LABORATORYCLIA [id number] [address] [place] Hematocrit (Bld) [Volume fraction] 37.2 % Normal 36.0-46.0 [facility] Comment on above: Order Comment: Speci men Type: BLOOD SPECIMENOrdering Facility: [facility] Address: [address] [place] [address] Performed By: #### 5 7021-8 ####CERV[facility] LABORATORYCLIA [id number] [place] [address] [place] Hemoglobin (Bld) [Mass/Vol] 12.6 g/dL Normal 11.5-15.5 [facility] Comment on above: Order Comment: Speci men Type: BLOOD SPECIMENOrdering Facility: [facility] Address: [address] [place] [address] Performed By: #### 5 7021-8 ####CERV[facility] LABORATORYCLIA [id number] [place] [address] [place] Immature granulocytes (Bld) [#/Vol] 10*3/uL Normal <0.10 [facility] Comment on above: Order Comment: Speci men Type: BLOOD SPECIMENOrdering Facility: [facility] Address: [address] [place] [address] Performed By: #### 5 7021-8 ####CERV[facility] LABORATORYCLIA [id number] [address] [place] Immature granulocytes/100 WBC (Bld) 0.3 % Normal [facility] Comment on above: Order Comment: Speci men Type: BLOOD SPECIMENOrdering Facility: [facility] Address: [address] [place] [address] Performed By: #### 5 7021-8 ####CERV[facility] LABORATORYCLIA [id number] [place] [address] [place] Lymphocytes (Bld) [#/Vol] 1.71 10*3/uL Normal 1.00-4.00 [facility] Comment on above: Order Comment: Speci men Type: BLOOD SPECIMENOrdering Facility: [facility] Address: [address] [place] [address] Performed By: #### 5 7021-8 ####CERV[facility] LABORATORYCLIA [id number] [place] [address] [place] Lymphocytes/100 WBC (Bld) 22.4 % Normal [facility] Comment on above: Order Comment: Speci men Type: BLOOD SPECIMENOrdering Facility: [facility] Address: [address] [place] [address] Performed By: #### 5 7021-8 ####CERV[facility] LABORATORYCLIA [id number] [address] MCH (RBC) [Entitic mass] 30.8 pg Normal 26.0-34.0 [facility] Comment on above: Order Comment: Speci men Type: BLOOD SPECIMENOrdering Facility: [facility] Address: [address] [place] [address] Performed By: #### 5 7021-8 ####CERV[facility] LABORATORYCLIA [id number] [address] MCHC (RBC) [Mass/Vol] 33.9 g/dL Normal 30.5-36.0 [facility] Comment on above: Order Comment: Speci men Type: BLOOD SPECIMENOrdering Facility: [facility] Address: [address] [place] [address] Performed By: #### 5 7021-8 ####CERV[facility] LABORATORYCLIA [id number] [address] MCV (RBC) [Entitic vol] 91.0 fL Normal 80.0-100.0 [facility] Comment on above: Order Comment: Speci men Type: BLOOD SPECIMENOrdering Facility: [facility] Address: [address] [place] [address] Performed By: #### 5 7021-8 ####CERV[facility] LABORATORYCLIA [id number] [address] [place] Monocytes (Bld) [#/Vol] 0.54 10*3/uL Normal <0.87 [facility] Comment on above: Order Comment: Speci men Type: BLOOD SPECIMENOrdering Facility: [facility] Address: [address] [place] [address] Performed By: #### 5 7021-8 ####CERVANT[facility] LABORATORYCLIA [id number] [address] Monocytes/100 WBC (Bld) 7.1 % Normal [facility] Comment on above: Order Comment: Speci men Type: BLOOD SPECIMENOrdering Facility: [facility] Address: [address] [place] [address] Performed By: #### 5 7021-8 ####CERVANT[facility] LABORATORYCLIA [id number] [place] [address] [place] Neutrophils (Bld) [#/Vol] 5.18 10*3/uL Normal 1.45-7.50 [facility] Comment on above: Order Comment: Speci men Type: BLOOD SPECIMENOrdering Facility: [facility] Address: [address] [place] [address] Performed By: #### 5 7021-8 ####CERVANT[facility] LABORATORYCLIA [id number] [place] [address] [place] Neutrophils/100 WBC (Bld) 67.8 % Normal [facility] Comment on above: Order Comment: Speci men Type: BLOOD SPECIMENOrdering Facility: [facility] Address: [address] [place] [address] Performed By: #### 5 7021-8 ####CERVANT[facility] LABORATORYCLIA [id number] [place] [address] [place] Nucleated RBC (Bld) [#/Vol] 10*3/uL Normal <0.01 [facility] Comment on above: Order Comment: Speci men Type: BLOOD SPECIMENOrdering Facility: [facility] Address: [address] [place] [address] Performed By: #### 5 7021-8 ####CERVANTES LABORATORYCLIA [id number] [address] OF [place] Nucleated RBC/100 WBC (Bld) [Ratio] 0.0 /100 WBC Normal [facility] Comment on above: Order Comment: Speci men Type: BLOOD SPECIMENOrdering Facility: [facility] Address: [address] [place] [address] Performed By: #### 5 7021-8 ####[facility] LABORATORYCLIA [id number] [place] [address] [facility] [place] Platelet mean volume (Bld) [Entitic vol] 10.0 fL Normal 9.0-12.7 [facility] Comment on above: Order Comment: Speci men Type: BLOOD SPECIMENOrdering Facility: [facility] Address: [address] [place] [address] Performed By: #### 5 7021-8 ####[facility] LABORATORYCLIA [id number] [place] [address] [facility] [place] Platelets (Bld) [#/Vol] 176 10*3/uL Normal 150-400 [facility] Comment on above: Order Comment: Speci men Type: BLOOD SPECIMENOrdering Facility: [facility] Address: [address] [place] [address] Performed By: #### 5 7021-8 ####[facility] LABORATORYCLIA [id number] [place] [address] [place] RBC (Bld) [#/Vol] 4.09 10*6/uL Normal 3.90-5.20 [facility] Comment on above: Order Comment: Speci men Type: BLOOD SPECIMENOrdering Facility: [facility] Address: [address] [place] [address] Performed By: #### 5 7021-8 ####[facility] LABORATORYCLIA [id number] [address] [place] WBC (Bld) [#/Vol] 7.63 10*3/uL Normal 3.70-11.00 [facility] Comment on above: Order Comment: Speci men Type: BLOOD SPECIMENOrdering Facility: [facility] Address: [address] [place] [address] Performed By: #### 5 7021-8 ####[facility] LABORATORYCLIA [id number] [place] [id number] [facility] CT KNEE WO IVCON LTon 2024 CT KNEE WO IVCON LT * * *Final Report* * * DATE OF EXAM: Sep 18 2024 10:[address] [place] [address] 0083 - CT KNEE WO IVCON LT / PROCEDURE REASON: left knee * * * * Physician Interpretation * * * * EXAMINATION: CT KNEE WO IVCON LT CLINICAL HISTORY: left knee Technique: Multidetector CT of the left knee was performed without intravenous contrast. 2-D sagittal and coronal reconstructed images are provided. Comparison: Left knee radiographs from earlier the same day. CT Radiation dose: Integrated Dose-length product (DLP) for this visit = 353 mGy*cm. CT Dose Reduction Employed: Automated exposure control(AEC) and iterative recon RESULT: Bones: Diffusely demineralized. No acute fracture or traumatic malalignment identified. Tricompartmental degenerative changes are present, greatest within the patellofemoral compartment. Soft tissues: Small suprapatellar joint effusion. No soft tissue contusion or fluid collection identified. Peripheral vascular calcifications. Diffuse muscular atrophy. IMPRESSION: * No acute osseous abnormality of the left knee. * Small joint effusion. * Tricompartmental degenerative changes. Pharmaceutical Operator: CEM Transcribe Date/Time: Sep 18 2024 11:34P Dictated by : STEPHANE GRIMES MD This examination was interpreted and the report reviewed and electronically signed by: STEPHANE GRIMES MD on Sep 18 2024 11:37PM EST [id number] Normal [facility] Comprehensive metabolic 2000 panelon 09-18-2024 Albumin [Mass/Vol] 3.2 g/dL Low 3.9-4.9 [facility] Comment on above: Order Comment: Speci men Type: BLOOD SPECIMENOrdering Facility: [facility] Address: [address] [place] [address] Performed By: #### 2 4323-8 ####[facility] LABORATORYCLIA [id number] [address] [place] [facility] ALP [Catalytic activity/Vol] 42 U/L Normal 34-123 [facility] Comment on above: Order Comment: Speci men Type: BLOOD SPECIMENOrdering Facility: [facility] Address: [address] [place] [address] Performed By: #### 2 4323-8 ####[facility] LABORATORYCLIA [id number] [place] [id number] [place] [facility] ALT [Catalytic activity/Vol] 8 U/L Normal 7-38 [facility] Comment on above: Order Comment: Speci men Type: BLOOD SPECIMENOrdering Facility: [facility] Address: [address] [place] [address] Performed By: #### 2 4323-8 ####[facility] LABORATORYCLIA [id number] [place] [address] [place] Anion gap [Moles/Vol] 10 mmol/L Normal 8-15 [facility] Comment on above: Order Comment: Speci men Type: BLOOD SPECIMENOrdering Facility: [facility] Address: [address] [place] [address] Performed By: #### 2 4323-8 ####[facility] LABORATORYCLIA [id number] [place] [address] [place] AST [Catalytic activity/Vol] 19 U/L Normal 13-35 [facility] Comment on above: Order Comment: Speci men Type: BLOOD SPECIMENOrdering Facility: [facility] Address: [address] [place] [address] Performed By: #### 2 4323-8 ####[facility] LABORATORYCLIA [id number] [place] [address] [place] Bilirubin [Mass/Vol] 0.5 mg/dL Normal 0.2-1.3 [facility] Comment on above: Order Comment: Speci men Type: BLOOD SPECIMENOrdering Facility: [facility] Address: [address] [place] [address] Performed By: #### 2 4323-8 ####[facility] LABORATORYCLIA [id number] [place] [address] [place] Calcium [Mass/Vol] 9.1 mg/dL Normal 8.5-10.2 [facility] Comment on above: Order Comment: Speci men Type: BLOOD SPECIMENOrdering Facility: [facility] Address: [address] [place] [address] Performed By: #### 2 4323-8 ####[facility] LABORATORYCLIA [id number] [place] [address] [place] Chloride [Moles/Vol] 98 mmol/L Normal 98-107 [facility] Comment on above: Order Comment: Speci men Type: BLOOD SPECIMENOrdering Facility: [facility] Address: [address] [place] [address] Performed By: #### 2 4323-8 ####[facility] LABORATORYCLIA [id number] [place] [address] [place] CO2 [Moles/Vol] 28 mmol/L Normal 22-30 [facility] Comment on above: Order Comment: Suzanne radha Type: BLOOD SPECIMENOrdering Facility: [facility] Address: [address] [place] [address] Performed By: #### 2 4323-8 ####[facility] LABORATORYCLIA [id number] [address] STATES OF [facility] Creatinine [Mass/Vol] 0.80 mg/dL Normal 0.58-0.96 [facility] Comment on above: Order Comment: Suzanne radha Type: BLOOD SPECIMENOrdering Facility: [facility] Address: [address] [place] [address] Performed By: #### 2 4323-8 ####[facility] LABORATORYCLIA [id number] [address] Creatinine and Glomerular filtration rate.predicted panel (S/P/Bld) 78 mL/min/1.73m??? Normal >=60 [facility] Comment on above: Order Comment: Suzanne garcia Type: BLOOD SPECIMENOrdering Facility: [facility] Address: [address] [place] [address] Result Comment: Winifred mated Glomerular Filtration Rate (eGFR) is calculated using the 2020 CKD-EPI creatinine equation. This equation utilizes serum creatinine, sex, and age as parameters. The creatinine assay has traceable calibration to isotope dilution-mass spectrometry. Refer to KDIGO guidelines for clinical interpretation. In patients with unstable renal function, e.g. those with acute kidney injury, the eGFR may not accurately reflect actual GFR. Performed By: #### 2 4323-8 ####[facility] LABORATORYCLIA [id number] [address] [place] Glucose [Mass/Vol] 121 mg/dL High 74-99 [facility] Comment on above: Order Comment: Naeemcandelaria garcia Type: BLOOD SPECIMENOrdering Facility: [facility] Address: [address] [place] [address] Result Comment: The [place] [employer] (ADA) provides guidance for cutoff values for fasting glucose and random glucose. The ADA defines fasting as no caloric intake for at least 8 hours. Fasting plasma glucose results between 100 to 125 mg/dL indicate increased risk for diabetes (prediabetes). Fasting plasma glucose results greater than or equal to 126 mg/dL meet the criteria for diagnosis of diabetes. In the absence of unequivocal hyperglycemia, results should be confirmed by repeat testing. In a patient with classic symptoms of hyperglycemia or hyperglycemic crisis, random plasma glucose results greater than or equal to 200 mg/dL meet the criteria for diagnosis of diabetes. Reference: Standards of Medical Care in Diabetes 2016, [place] [employer]. Diabetes Care. 2016.39(Suppl 1). Performed By: #### 2 4323-8 ####[facility] LABORATORYCLIA [id number] [place] [address] [place] Potassium [Moles/Vol] 4.3 mmol/L Normal 3.7-5.1 [facility] Comment on above: Order Comment: Speci men Type: BLOOD SPECIMENOrdering Facility: [facility] Address: [address] [place] [address] Performed By: #### 2 4323-8 ####[facility] LABORATORYCLIA [id number] [place] [address] [place] Protein [Mass/Vol] 6.4 g/dL Normal 6.3-8.0 [facility] Comment on above: Order Comment: Speci men Type: BLOOD SPECIMENOrdering Facility: [facility] Address: [address] [place] [address] Performed By: #### 2 4323-8 ####[facility] LABORATORYCLIA [id number] [address] STATES [place] Sodium [Moles/Vol] 136 mmol/L Normal 136-144 [facility] Comment on above: Order Comment: Speci men Type: BLOOD SPECIMENOrdering Facility: [facility] Address: [address] [place] [address] Performed By: #### 2 4323-8 ####[facility] LABORATORYCLIA [id number] [place] [address] [place] Urea nitrogen [Mass/Vol] 10 mg/dL Normal 7-21 [facility] Comment on above: Order Comment: Speci men Type: BLOOD SPECIMENOrdering Facility: [facility] Address: [address] [place] [address] Performed By: #### 2 4323-8 ####[facility] LABORATORYCLIA [id number] [place] [address] [facility] ED NOTEon 09-18-2024 ED NOTE HNO ID: [id number] Author: MONE KING, NAWAF Service: ? Author Type: Registered Nurse Type: ED Notes Filed: 09/18/2024 22:14 Note Text: Pt report given to Zaria (RN) [facility] ED NOTE HNO ID: [id number] Author: MONE KING RN Service: ? Author Type: Registered Nurse Type: ED Notes Filed: 09/18/2024 22:15 Note Text: IV attempted by this RN. Medic requested to bedside for ultrasound. [facility] ED NOTE HNO ID: [id number] Author: LIANNE FERNANDEZ, NAWAF Service: ? Author Type: Registered Nurse Type: ED Notes Filed: 09/18/2024 20:22 Note Text: Bed: ED-15 Expected date: Expected time: Means of arrival: Comments: [facility] ED NOTE HNO ID: [id number] Author: LIANNE FERNANDEZ, RN Service: ? Author Type: Registered Nurse Type: ED Notes Filed: 09/18/2024 13:36 Note Text: Discharge instructions reviewed with patient via teachback. Pt verbalizes understanding. Pt awake and alert, respirations regular and unlabored. No further questions for this RN. Report given to [facility] ED NOTE HNO ID: [id number] Author: ZARIA ZAPATA RN Service: ? Author Type: Registered Nurse Type: ED Notes Filed: 09/18/2024 10:15 Note Text: Bed: ED-01 Expected date: Expected time: Means of arrival: [facility] Comments: [facility] ED PROV NOTEon 09-18-2024 ED PROV NOTE HNO ID: [id number] Author: KRISTI POND DO Service: Emergency Medicine Author Type: Physician Type: ED Provider Notes Filed: 09/19/2024 00:38 Note Text: ED Provider Note Patient Name: Randolph Hunter : 1950 SERVICE DATE: 09/18/24 History Patient presents with: Fall: PT presents to the ED from an assisted living facility via EMS. Pt was seen in this ED earlier today after she sustained a fall. PT was cleared and discharged back to the facility. PT states the pain in her LEFT leg has increased and the facility is unable to help her as she is struggling to ambulate. Pt has no other complaints at this time. Leg Injury HPI 74 year old history of T2DM, CAD, hypertension, cerebral palsy presents today for left leg pain. Patient states that earlier today she was pivoting from her lift chair to her wheelchair when she fell onto her left knee injuring it. Denies any head strike, LOC, nausea, vomiting, chest pain, syncope, new focal weakness/numbness, abdominal pain, cough/URI-like symptoms, fever, chills. Denies any new bowel bladder incontinence, headaches, vision changes PAST MEDICAL HISTORY Diagnosis Date CAD (coronary artery disease) Carotid artery stenosis Cerebral palsy (HCC) Chronic depressive personality disorder Diarrhea Dyslipidemia Edema bilat Hirsutism Hypertension Hypothyroid Insomnia Migraines Morbid obesity (HCC) Osteomyelitis of foot (HCC) Pulmonary embolism (HCC) Pulmonary embolism (HCC) 2011 SLE (systemic lupus erythematosus) (HCC) Type II or unspecified type diabetes mellitus without mention of complication, uncontrolled Unspecified asthma(493.90) Unspecified venous (peripheral) insufficiency PAST SURGICAL HISTORY Procedure Laterality Date APPENDECTOMY child ARTHROSCOPY KNEE DIAGNOSTIC W/WO SYNOVIAL BX SPX Arthroscopy, knee right ARTHRP KNE CONDYLEANDPLATU MEDIALANDLAT COMPARTMENTS Right 12/2013 Dr Fany Cervantes. COLONOSCOPY FLX DX W/COLLJ SPEC WHEN PFRMD 10/23/06 COLONOSCOPY FLX DX W/COLLJ SPEC WHEN PFRMD 11/22/12 LAPAROSCOPY SURG CHOLECYSTECTOMY 06/06/09 PAST SURGICAL HISTORY OF 2005 Repair of torn R femoral artery PAST SURGICAL HISTORY OF Left foot surgery X 2 PERC TRANSL COR ANGIO 2008 Percutaneous Transluminal Coronary Angio Status TONSILLECTOMY PRIMARY/SECONDARY Tonsillectomy TOTAL ABDOMINAL HYSTERECT W/WO RMVL TUBE OVARY 1998 Hysterectomy, BSO TRANSCATH STENT ADDN VESSEL,PERCUT 2005 Transcath stent addn vessel percut TRANSCATH STENT INIT VESSEL,PERCUT 2004 Transcath stent init vessel percut FAMILY HISTORY Problem Relation Age of Onset Asthma Mother Diabetes Mother Heart Mother Cancer Mother COLON COPD Mother Hypertension Mother Osteoporosis Father Heart Father Cancer Father lung COPD Father other (AAA) Father other (brain tumor) Brother brain other (AAA) Paternal Grandfather Social History Tobacco Use Smoking status: Never Smokeless tobacco: Never Tobacco comments: Lived with 2 smoking parents for 18 years. Spouse non-smoke. Vaping Use Vaping status: Never Used Substance and Sexual Activity Alcohol use: Yes Comment: rare Drug use: No Sexual activity: Not on file ALLERGIES Allergen Reactions Phenergan Vc [Prome* Mental Status Change Adhesive Tape (Bertha* Rash Paper tape, skin comes off. Adhesive Tape-Silic* Rash Ciprofloxacin Rash Not hives. Erythromycin Itching throat Keflex [Cephalexin] Itching throat Naprosyn [Naproxen] Intolerance didn't work Paroxetine Intolerance Paxil [Paroxetine H* Mental Status Change Penicillins Hives Dioxicillin Promethazine Intolerance Zaqdnxh-Xdu-Tzc Red* Myalgia Cheese Diarrhea, GI Upset Parmesan cheese and bulgarian cheese, per patient Review of Systems Constitutional: Negative for fatigue and fever. HENT: Negative for congestion. Respiratory: Negative for cough and shortness of breath. Cardiovascular: Negative for chest pain. Gastrointestinal: Negative for abdominal pain, diarrhea, nausea and vomiting. Genitourinary: Negative for dysuria. Physical Exam Vitals [09/18/242028] BP Pulse Temp Temp src Resp SpO2 Weight Height 132/77 74 36.7 ?C (98.1 ?F) Oral 18 96 % 104.2 kg (229 lb 12.8 oz) -- Physical Exam Constitutional: General: She is not in acute distress. Appearance: She is not ill-appearing, toxic-appearing or diaphoretic. HENT: Head: Normocephalic. Nose: Nose normal. Mouth/Throat: Mouth: Mucous membranes are moist. Eyes: Pupils: Pupils are equal, round, and reactive to light. Cardiovascular: Rate and Rhythm: Normal rate and regular rhythm. Pulses: Normal pulses. Pulmonary: Effort: Pulmonary effort is normal. No respiratory distress. Breath sounds: No wheezing. Abdominal: Palpations: Abdomen is soft. Tenderness: There is no abdominal tenderness. There is no guarding. Musculoskeletal: Right lower leg: No edema. Left lower (more content not included)... Normal [facility] ED PROV NOTE HNO ID: [id number] Author: CLINTON GRAJEDA PA-C Service: ? Author Type: Physician Process Control Board Operator Type: ED Provider Notes Filed: 09/18/2024 11:31 Note Text: ED Provider Note Patient Name: Randolph Hunter : 1950 SERVICE DATE: 09/18/24 History No chief complaint on file. 74-year-old female presents for left knee pain secondary to a fall, patient was trying to get up from the lift chair to her wheelchair when she fell injuring her left knee, she denies any other complaints PAST MEDICAL HISTORY Diagnosis Date CAD (coronary artery disease) Carotid artery stenosis Cerebral palsy (HCC) Chronic depressive personality disorder Diarrhea Dyslipidemia Edema bilat Hirsutism Hypertension Hypothyroid Insomnia Migraines Morbid obesity (HCC) Osteomyelitis of foot (HCC) Pulmonary embolism (HCC) Pulmonary embolism (HCC) 2011 SLE (systemic lupus erythematosus) (HCC) Type II or unspecified type diabetes mellitus without mention of complication, uncontrolled Unspecified asthma(493.90) Unspecified venous (peripheral) insufficiency PAST SURGICAL HISTORY Procedure Laterality Date APPENDECTOMY child ARTHROSCOPY KNEE DIAGNOSTIC W/WO SYNOVIAL BX SPX Arthroscopy, knee right ARTHRP KNE CONDYLEANDPLATU MEDIALANDLAT COMPARTMENTS Right 12/2013 Dr Fany Cervantes. COLONOSCOPY FLX DX W/COLLJ SPEC WHEN PFRMD 10/23/06 COLONOSCOPY FLX DX W/COLLJ SPEC WHEN PFRMD 11/22/12 LAPAROSCOPY SURG CHOLECYSTECTOMY 06/06/09 PAST SURGICAL HISTORY OF 2005 Repair of torn R femoral artery PAST SURGICAL HISTORY OF Left foot surgery X 2 PERC TRANSL COR ANGIO 2008 Percutaneous Transluminal Coronary Angio Status TONSILLECTOMY PRIMARY/SECONDARY Tonsillectomy TOTAL ABDOMINAL HYSTERECT W/WO RMVL TUBE OVARY 1998 Hysterectomy, BSO TRANSCATH STENT ADDN VESSEL,PERCUT 2005 Transcath stent addn vessel percut TRANSCATH STENT INIT VESSEL,PERCUT 2003 Transcath stent init vessel percut FAMILY HISTORY Problem Relation Age of Onset Asthma Mother Diabetes Mother Heart Mother Cancer Mother COLON COPD Mother Hypertension Mother Osteoporosis Father Heart Father Cancer Father lung COPD Father other (AAA) Father other (brain tumor) Brother brain other (AAA) Paternal Grandfather Social History Tobacco Use Smoking status: Never Smokeless tobacco: Never Tobacco comments: Lived with 2 smoking parents for 18 years. Spouse non-smoke. Vaping Use Vaping status: Never Used Substance and Sexual Activity Alcohol use: Yes Comment: rare Drug use: No Sexual activity: Not on file ALLERGIES Allergen Reactions Phenergan Vc [Prome* Mental Status Change Adhesive Unknown Paper tape Adhesive Tape-Silic* Unknown Ciprofloxacin Rash Not hives. Erythromycin Itching throat Keflex [Cephalexin] Itching throat Naprosyn [Naproxen] Intolerance didn't work Paper Tape [Other] Intolerance removes skin Paroxetine Unknown Paxil [Paroxetine H* Mental Status Change Penicillins Hives Dioxicillin Promethazine Unknown Nteqlfu-Dgv-Dfd Red* Myalgia Cheese Diarrhea, GI Upset Parmesan cheese and bulgarian cheese, per patient Review of Systems Constitutional: Negative for chills and fever. HENT: Negative for trouble swallowing. Eyes: Negative for photophobia. Respiratory: Negative for chest tightness, shortness of breath and wheezing. Cardiovascular: Negative for chest pain, palpitations and leg swelling. Gastrointestinal: Negative for abdominal pain, diarrhea, nausea and vomiting. Genitourinary: Negative for dysuria, flank pain, hematuria, pelvic pain, vaginal bleeding and vaginal discharge. Musculoskeletal: Positive for arthralgias and myalgias. Negative for back pain, neck pain and neck stiffness. Skin: Negative for color change. Neurological: Negative for dizziness, numbness and headaches. Psychiatric/Behavioral: Negative for confusion. Physical Exam Vitals [09/18/24 1016] BP Pulse Temp Temp src Resp SpO2 Weight Height 155/66 76 -- -- 18 96 % -- -- Physical Exam Constitutional: Appearance: She is well-developed. HENT: Head: Normocephalic and atraumatic. Nose: Nose normal. Eyes: Conjunctiva/sclera: Conjunctivae normal. Cardiovascular: Rate and Rhythm: Normal rate and regular rhythm. Pulmonary: Effort: Pulmonary effort is normal. No respiratory distress. Breath sounds: Normal breath sounds. No wheezing. Abdominal: General: Bowel sounds are normal. Palpations: Abdomen is soft. Musculoskeletal: General: Tenderness present. Normal range of motion. Cervical back: Normal range of motion and neck supple. Comments: Tender to palpation over the left knee joint, there appears to be a very small bruise over the lateral aspect of the left knee that appears old, she does have range of motion of the left knee, sensation is diminished due to patient's cerebral palsy and she states this is very similar to her prior sen (more content not included)... Normal [facility] PT panel Coag (PPP)on 2024 INR Coag (PPP) [Relative time] 2.3 {INR} High 0.9-1.3 [facility] Comment on above: Order Comment: Suzanne garcia Type: BLOOD SPECIMENOrdering Facility: [facility] Address: [address] [place], [place] [address] Result Comment: Kaycee min K Antagonist (VKA) Therapeutic Range: INR 2 to 3 (Target INR of 2.5) Note: For patients treated with VKA drugs, such as warfarin, the [place] [employer] 2012 Guideline recommends a therapeutic INR range of 2 to 3 (target INR of 2.5). This recommendation includes high-risk patients with antiphospholipid syndrome with previous arterial or venous thromboembolism, current-generation mechanical or bioprosthetic aortic heart valve replacement. Note: Patients with mechanical aortic valve replacement and additional risk factors for thromboembolic events (atrial fibrillation, previous thromboembolism, LV dysfunction, hypercoagulable conditions) or an older generation mechanical AVR (i.e., ball in-Cage) or any mechanical MVR should have a INR therapeutic range of 2.5 to 3.5 (target INR of 3). Keegan SOUZA, et al. Chest 2012, 141:7S-47S Roshni RA, et al. [facility] 2017, 70: 252-289 Performed By: #### 3 4528-0 ####[facility] LABORATORYCLIA [id number] [place] [address] [place] PT Coag (PPP) [Time] 23.8 s High 9.7-13.0 [facility] Comment on above: Order Comment: Suzanne garcia Type: BLOOD SPECIMENOrdering Facility: [facility] Address: [address] [place], [place] [address] Performed By: #### 3 4528-0 ####[facility] LABORATORYCLIA [id number] [place] [address] [place] XR ANKLE 3V AP/LAT/OBL LTon 09-18-2024 XR ANKLE 3V AP/LAT/OBL LT * * *Final Report* * * DATE OF EXAM: Sep 18 2024 11:08PM MDX 5298 - XR ANKLE 3V AP/LAT/OBL LT / PROCEDURE REASON: Fracture, ankle * * * * Physician Interpretation * * * * EXAMINATION: XR ANKLE 3V AP/LAT/OBL LT, XR HIP 3V PELV+ AP/LAT LT HISTORY: Patient states she had a fall earlier today where she landed on her left side, she is now having left hip pain and left ankle pain. Fracture, ankle. TECHNIQUE: XR ANKLE 3V AP/LAT/OBL LT, XR HIP 3V PELV+ AP/LAT LT Laterality: LEFT Number of different views (projections): 3 M: XB_1 COMPARISON: Left foot radiographs 08/15/2021. RESULT: Left ankle: Bones are diffusely demineralized. No acute fracture or traumatic malalignment. No significant degenerative disease. Soft tissue swelling of the imaged lower extremity. Pelvis and left hip: Bones are diffusely demineralized. No acute fracture or traumatic malalignment identified. Degenerative changes of the pubic symphysis and lower lumbar spine. Surgical clips project over the right proximal femoral and left pelvic regions. IMPRESSION: * No acute osseous abnormality of the left ankle, pelvis, or left hip. * Diffuse soft tissue swelling of the left lower extremity. Pharmaceutical Operator: [employer] Transcribe Date/Time: Sep 18 2024 11:41P Dictated by : STEPHANE GRIMES MD This examination was interpreted and the report reviewed and electronically signed by: STEPHANE GRIMES MD on Sep 18 2024 11:44PM EST [id number] [facility] XR HIP 3V PELV+ AP/LAT LTon 09-18-2024 XR HIP 3V PELV+ AP/LAT LT * * *Final Report* * * DATE OF EXAM: Sep 18 2024 11:08PM MDX 5351 - XR HIP 3V PELV+ AP/LAT LT / PROCEDURE REASON: Hip pain, acute, fx suspected, initial exam * * * * Physician Interpretation * * * * EXAMINATION: XR ANKLE 3V AP/LAT/OBL LT, XR HIP 3V PELV+ AP/LAT LT HISTORY: Patient states she had a fall earlier today where she landed on her left side, she is now having left hip pain and left ankle pain. Fracture, ankle. TECHNIQUE: XR ANKLE 3V AP/LAT/OBL LT, XR HIP 3V PELV+ AP/LAT LT Laterality: LEFT Number of different views (projections): 3 M: XB_1 COMPARISON: Left foot radiographs 08/15/2021. RESULT: Left ankle: Bones are diffusely demineralized. No acute fracture or traumatic malalignment. No significant degenerative disease. Soft tissue swelling of the imaged lower extremity. Pelvis and left hip: Bones are diffusely demineralized. No acute fracture or traumatic malalignment identified. Degenerative changes of the pubic symphysis and lower lumbar spine. Surgical clips project over the right proximal femoral and left pelvic regions. IMPRESSION: * No acute osseous abnormality of the left ankle, pelvis, or left hip. * Diffuse soft tissue swelling of the left lower extremity. Pharmaceutical Operator: [facility] Transcribe Date/Time: Sep 18 2024 11:41P Dictated by : STEPHANE GRIMES MD This examination was interpreted and the report reviewed and electronically signed by: STEPHANE GRIMES MD on Sep 18 2024 11:44PM EST [id number] [facility] XR KNEE 4V AP/LAT/OBLS LTon 09-18-2024 XR KNEE 4V AP/LAT/OBLS LT * * *Final Report* * * DATE OF EXAM: Sep 18 2024 10:31AM MDX [id number] - XR KNEE 4V AP/LAT/OBLS LT / PROCEDURE REASON: Trauma * * * * Physician Interpretation * * * * PROCEDURE: Left knee INDICATION: Trauma.LEFT KNEE PAIN TECHNIQUE: XR KNEE 4V AP/LAT/OBLS LT COMPARISON: 03/04/2011 FINDINGS: Tricompartment osteoarthritis. No acute fracture or dislocation. No joint effusion. Vascular calcifications. IMPRESSION: No acute abnormality Pharmaceutical Operator: [facility] Transcribe Date/Time: Sep 18 2024 10:47A Dictated by : WILBERT WALKER MD This examination was interpreted and the report reviewed and electronically signed by: WILBERT WALKER MD on Sep 18 2024 10:48AM EST [id number] [facility] CNOVon 08-05-2024 CNOV Office Visit (PSYLWM ) HUNTERRANDOLPH ([id number]) 1950 F Date Time Provider Department 08/05/24 11:00 AM GILMER COTTON PSYLWM During your visit today, we recorded the following information about you: Gilmer Cotton, PhD 08/05/2024 12:29 PM Signed [facility] Progress Note Randolph Abiodun Johan 08/05/2024 [id number] PROVIDER: Gilmer Cotton, PhD CPT Code: Time: 50 minutes Setting: Patient seen in person Parties Present: Patient Treatment Modality/Interventions: Cognitive Behavioral Reassurance/Supportive Insight oriented Problem solving Processing of emotions Psychoeducation MENTAL STATUS: Mood: variable Affect: mood-congruent Thoughts/Associations:goal directed Suicidal/Homicidal Ideation: None expressed or evidenced Other Prominent Symptoms: Therapy Focus/Content of Session: Self-care, Stress management, Mood/affect regulation, Self-esteem, and Coping with chronic illness MOOD: a bit dysthymic... likely all the changes of health care and living situation where she resides Pt likes the group of caregivers that are helping her at present MEDS: wonder if a review might help her mood a bit Generally stable and ok in spite of the above and anticipating more great grandchildren ... seems like he is a bit downhill cognitively over time MEDICATIONS: Per medical record: Current Outpatient Medications Medication Sig albuterol (PROVENTIL) 2.5 mg /3 mL (0.083 %) nebulizer solution 3 mL as needed Inhalation every 6 hrs furosemide (LASIX) 80 mg tablet Take 1 tablet by mouth once daily. hydrOXYchloroQUINE (PLAQUENIL) 200 mg tablet mupirocin (BACTROBAN) 2 % ointment Apply to affected area once daily. APPLY TO AFFECTED AREA prazosin (MINIPRESS) 1 mg cap folic acid 1 mg tablet Take 1 tablet by mouth every afternoon. nitrofurantoin monohydrate and macrocrystal (MACROBID) 100 mg capsule escitalopram oxalate (LEXAPRO) 10 mg tablet Take 10 mg by mouth once daily. escitalopram oxalate (LEXAPRO) 5 mg tablet take 1 tablet by mouth once daily with 10 milligram to EQUAL 15MG FOR ANXIETY Nystatin, Bulk, 10 billion unit powd Apply to affected area. traZODone (DESYREL) 50 mg tablet Take 50 mg by mouth every evening. buPROPion XL (WELLBUTRIN XL) 300 mg 24 hr tablet 300 mg once daily. metFORMIN ER (GLUCOPHAGE XR) 500 mg 24 hr tablet Take 500 mg by mouth twice daily. levothyroxine (SYNTHROID) 150 mcg tablet Take 1 tablet by mouth once daily. Take on empty stomach. For thyroid HYDROcodone-acetaminophen (NORCO) 5-325 mg per tablet Take 1 tablet by mouth every 6 hours as needed for pain for up to 30 days. warfarin (COUMADIN) 5 mg tablet 7.5 mg Mon/Fri, 5 mg all other days or as directed mirtazapine (REMERON) 30 mg tablet Take 1 tablet by mouth daily at bedtime. (Patient not taking: No sig reported) gabapentin (NEURONTIN) 600 mg tablet Take 1 tablet by mouth three times daily for 180 days. cyanocobalamin 1,000 mcg/mL Inject 1 mL intramuscularly once every month. nitroglycerin sublingual (NITROQUICK) 0.4 mg SL tablet Dissolve 1 tablet under the tongue every 5 minutes as needed for chest pain. FOR CHEST PAIN. IF NO RELIEF CALL 911 ramipril (ALTACE) 5 mg capsule Take 1 capsule by mouth once daily. metoprolol succinate ER (TOPROL XL) 100 mg Take 1 tablet by mouth once daily. Syringe with Needle, Disp, (MONOJECT TB SAFETY SYRINGE) 1 mL 25 gauge x 5/8" Use as directed once a month. blood sugar diagnostic (ONETOUCH VERIO TEST STRIPS) test strip Test blood sugar(s) 3 times daily. Dx: Other DM Code E11.42 Insulin: Yes ketoconazole (NIZORAL) 2 % cream Apply 1 application to affected area once daily. Syringe with Needle, Safety 3 mL 23 gauge x 1" 1 Each as directed. Use one each with Vitamin B 12 injections weekly for 3 doses and then monthly. fluticasone (FLONASE) 50 mcg/actuation nasal spray Use 2 Sprays in each nostril once daily. Rinse mouth after use. Magnesium Oxide 500 mg tab Take 500 mg by mouth once daily. Cholecalciferol, Vitamin D3, 50 mcg (2,000 unit) cap Take 1 capsule by mouth once daily. calcium carbonate/vitamin D2 (CALCIUM 600 WITH VITAMIN D ORAL) Take 1 tablet by mouth once daily. melatonin 10 mg tab Take 1 tablet by mouth daily at bedtime. aspirin, enteric coated (ASPIR-LOW) 81 mg EC tablet Take 1 tablet by mouth once daily. MULTIVITAMIN ORAL Take by mouth. OTC One A Day Womens Spirometers and Accessories gui Incentive spirometer. Deep breathe hourly while awake. PT/INR test meter (COAGUCHEK XS PRO) misc Check Protime weekly. Dx: pulmonary embolism, V58.61 COMPOUNDED PRESCRIPTION Hospital bed all electric with adjustable head and feet. 415.19; 343.8; 782.3; 787.91; V43.65 No current facility-administered medications for this visit. Psychiatric Medication Issues: see med record DIAGNOSIS: Hewett I: Depress (more content not included)... Normal [facility] ED Nursing Noteon 07-10-2024 ED Nursing Note Pt resting quietly i n bed with blanket over face. Respirations even and non labored. No coughing noted at this time. Await transport by [facility]. Normal [facility] ED Nursing Note Dr. Jha at bedside. Normal [facility] ED Nursing Noteon 07-09-[address] Jha to bedside . Pt given water. Normal [facility] ED Provider Noteon ED Provider Note EMERGENCY DEPARTMENT ENCOUNTER Pt Name: Randolph Hunter Birthdate 1950 Date of evaluation: 07/09/2024 ED Provider: Mali Jha MD CHIEF COMPLAINT Chief Complaint Patient presents with Cough 2 days- productive worse after eating a pizza roll HISTORY OF PRESENT ILLNESS (Location/Symptom, Timing/Onset, Context/Setting, Quality, Duration, Modifying Factors, Severity) Note limiting factors. I wore appropriate PPE for the entirety of this encounter. HPI Randolph Hunter is a 73 y.o. female who presents to the emergency department with chief complaint of a worsening cough. The patient states that she has had a cough for the past 2 days, that worsened after eating a pizza roll. She states that she feels like she has a sensation of something being stuck in her throat, but that started before the pizza rolls today. She denies any fevers or chills. Nursing Notes were reviewed. Limitations to history: None Outside historians: None, EMS, and Significant other REVIEW OF SYSTEMS Review of Systems Pertinent positives and negatives as per HPI. PAST MEDICAL HISTORY Past Medical History: Diagnosis Date Anemia of chronic disease Asthma B12 deficiency Brachial neuritis CAD (coronary artery disease) Cerebral palsy (HCC) Depression Diabetes (HCC) Fatty liver Frequent falls HLD (hyperlipidemia) Hyperparathyroidism (HCC) Lupus Migraine headache with aura Neuropathy Obesity Pulmonary emboli (HCC) Pulmonary embolism (HCC) Systemic lupus erythematosus (CMS/HCC) (HCC) Type 2 diabetes mellitus (HCC) SURGICAL HISTORY Past Surgical History: Procedure Laterality Date TOTAL KNEE ARTHROPLASTY Right CURRENT MEDICATIONS Previous Medications ALPHA TOCOPHEROL (VITAMIN E) 400 UNITS CAPSULE Take 400 Units by mouth in the morning and 400 Units in the evening. ASPIRIN 81 MG EC TABLET Take 81 mg by mouth daily. BUPROPION SR (WELLBUTRIN SR) 150 MG 12 HR TABLET Take 150 mg by mouth daily. CHOLECALCIFEROL (VITAMIN D-3) 50 MCG (2000 UT) CAPSULE Take 2,000 Units by mouth daily. CYANOCOBALAMIN (VITAMIN B-12) 500 MCG TABLET Take 500 mcg by mouth daily. ESCITALOPRAM (LEXAPRO) 10 MG TABLET Take 10 mg by mouth in the morning. ESCITALOPRAM (LEXAPRO) 5 MG TABLET take 1 tablet by mouth once daily with 10 milligram to EQUAL 15MG FOR ANXIETY FLUTICASONE (FLONASE) 50 MCG/ACT NASAL SPRAY Administer 1 spray into each nostril daily. FOLIC ACID (FOLVITE) 1 MG TABLET Take 1 tablet by mouth daily. GABAPENTIN (NEURONTIN) 300 MG CAPSULE 1 tablet Orally three ti,es a day HYDROCODONE-ACETAMINOPHEN (NORCO) 5-325 MG TABLET Take 1 tablet by mouth every 6 hours as needed. HYDROXYCHLOROQUINE (PLAQUENIL) 200 MG TABLET Take 1 tablet by mouth in the morning and 1 tablet in the evening. HYDROXYZINE PAMOATE (VISTARIL) 25 MG CAPSULE Take 25 mg by mouth in the morning and 25 mg in the evening. LEVOTHYROXINE (SYNTHROID, LEVOXYL) 150 MCG TABLET Take 150 mcg by mouth daily. MAGNESIUM OXIDE 500 MG TABLET Take by mouth. METFORMIN (GLUCOPHAGE) 500 MG TABLET Take 500 mg by mouth in the morning and 500 mg in the evening. Take with meals. METOPROLOL SUCCINATE XL (TOPROL-XL) 100 MG 24 HR TABLET Take 100 mg by mouth daily at bedtime. MUPIROCIN (BACTROBAN) 2 % OINTMENT Apply topically daily. NITROGLYCERIN (NITROSTAT) 0.[address] under the tongue. NYSTATIN (MYCOSTATIN) 895969 UNIT/GM POWDER Apply topically 2 times daily. NYSTATIN (MYCOSTATIN) CREAM Apply topically 3 times daily. PRAZOSIN (MINIPRESS) 1 MG CAPSULE RAMIPRIL (ALTACE) 5 MG CAPSULE Take 1 capsule by mouth Every 24 hours. TRAZODONE (DESYREL) 50 MG TABLET Take 50 mg by mouth every evening. WARFARIN (COUMADIN) 5 MG TABLET Take 1 tablet by mouth daily. ALLERGIES Promethazine-phenylephrine, 5-alpha reductase inhibitors, Adhesive [tape], Ciprofloxacin, E-mycin [erythromycin], Keflex [cephalexin], Naproxen, Paxil [paroxetine], Penicillins, Phenergan [promethazine], Statins, and Wound dressing adhesive FAMILY HISTORY No family history on file. SOCIAL HISTORY Social History Socioeconomic History Marital status: Tobacco Use Smoking status: Never Smokeless tobacco: Never Vaping Use Vaping status: Never Used Substance and Sexual Activity Alcohol use: Yes Comment: occasional Drug use: Never Social History Narrative Merged History Encounter Social Drivers of Health Financial Resource Strain: Low Risk (01/02/2020) Received from [facility] Overall Financial Resource Strain (CARDIA) Difficulty of Paying Living Expenses: Not very hard Food Insecurity: Food Insecurity Present (01/02/2020) Received from [facility] Hunger Vital Sign Worried About Running Out of Food in the Last Year: Sometimes true Ran Out of Food in the Last Year: Never true Transportation Needs: Unmet Transportation Needs (01/02/2020) Received from [facility] (more content not included)... Normal [facility] XR Chest Single viewon 07-09 1. No acute consolidation. Report Dictated on Electronically Signed By: Velasquez Nova MD Electronically Signed Date/Time: 07/09/2024 11:45 PM [facility] Patient Name: RANDOLPH HUNTER : 1950 Exam Date/Time: 07/09/2024 23:26 Procedure: XR CHEST 1 VIEW Ordering Provider: JHA J Reason For Exam: cough CHEST PORTABLE CLINICAL INDICATION: cough TECHNIQUE: Portable chest x-ray(s). COMPARISON: August,. FINDINGS: Cardiac and mediastinal silhouette within normal limits. Lungs are grossly clear. No significant vascular congestion. No apparent pneumothorax. Mild levoscoliotic and degenerative change again noted in the thoracic spine. [facility] Velasquez Nova MD - 07/09/2024 [facility] 1950 [id number] Exam Date/Time: 07/09/2024 23:26 Procedure: XR CHEST 1 VIEW Ordering Provider: JHA J Reason For Exam: cough CHEST PORTABLE CLINICAL INDICATION: cough TECHNIQUE: Portable chest x-ray(s). COMPARISON: August,. FINDINGS: Cardiac and mediastinal silhouette within normal limits. Lungs are grossly clear. No significant vascular congestion. No apparent pneumothorax. Mild levoscoliotic and degenerative change again noted in the thoracic spine. IMPRESSION: 1. No acute consolidation. Report Dictated on Electronically Signed By: Velasquez Nova MD Electronically Signed Date/Time: 07/09/2024 11:45 PM EST [facility] Radiology Study observation (narrative) [facility] XR Chest Single viewOrdered By: Velasquez Nova on 07-09-2024 [facility] Work Phone: CNOVon 05-02-2024 CNOV Office Visit (PSYLWM ) RANDOLPH HUNTER ([id number]) 1950 F Date Time Provider Department 05/02/24 11:00 AM GILMER COTTON PSYLWM During your visit today, we recorded the following information about you: Gilmer Cotton, PhD 05/02/2024 12:11 PM Signed [facility] Health Department Progress Note Randolph Hunter 05/02/2024 [id number] PROVIDER: Gilmer Cotton, PhD CPT Code: Time: 50 minutes Setting: Patient seen in person Parties Present: Patient Treatment Modality/Interventions: Cognitive Behavioral Reassurance/Supportive Insight oriented Problem solving Psychoeducation MENTAL STATUS: Mood: variable Affect: mood-congruent Thoughts/Associations:goal directed Suicidal/Homicidal Ideation: None expressed or evidenced Other Prominent Symptoms: Therapy Focus/Content of Session: Self-care, Stress management, Mood/affect regulation, and Self-esteem Pt a bit depressed but more minimally because of lots of little stressors ie elevators need fixed etc daughter is here now and has a job... awaiting court not hungry very often and reading a bit less .. suggesting some depression but seems mostly situational upon review stable MEDICATIONS: Per medical record: Current Outpatient Medications Medication Sig albuterol (PROVENTIL) 2.5 mg /3 mL (0.083 %) nebulizer solution 3 mL as needed Inhalation every 6 hrs furosemide (LASIX) 80 mg tablet Take 1 tablet by mouth once daily. hydrOXYchloroQUINE (PLAQUENIL) 200 mg tablet mupirocin (BACTROBAN) 2 % ointment Apply to affected area once daily. APPLY TO AFFECTED AREA prazosin (MINIPRESS) 1 mg cap folic acid 1 mg tablet Take 1 tablet by mouth every afternoon. nitrofurantoin monohydrate and macrocrystal (MACROBID) 100 mg capsule escitalopram oxalate (LEXAPRO) 10 mg tablet Take 10 mg by mouth once daily. escitalopram oxalate (LEXAPRO) 5 mg tablet take 1 tablet by mouth once daily with 10 milligram to EQUAL 15MG FOR ANXIETY Nystatin, Bulk, 10 billion unit powd Apply to affected area. traZODone (DESYREL) 50 mg tablet Take 50 mg by mouth every evening. buPROPion XL (WELLBUTRIN XL) 300 mg 24 hr tablet 300 mg once daily. metFORMIN ER (GLUCOPHAGE XR) 500 mg 24 hr tablet Take 500 mg by mouth twice daily. levothyroxine (SYNTHROID) 150 mcg tablet Take 1 tablet by mouth once daily. Take on empty stomach. For thyroid HYDROcodone-acetaminophen (NORCO) 5-325 mg per tablet Take 1 tablet by mouth every 6 hours as needed for pain for up to 30 days. warfarin (COUMADIN) 5 mg tablet 7.5 mg Mon/Fri, 5 mg all other days or as directed mirtazapine (REMERON) 30 mg tablet Take 1 tablet by mouth daily at bedtime. (Patient not taking: No sig reported) gabapentin (NEURONTIN) 600 mg tablet Take 1 tablet by mouth three times daily for 180 days. cyanocobalamin 1,000 mcg/mL Inject 1 mL intramuscularly once every month. nitroglycerin sublingual (NITROQUICK) 0.4 mg SL tablet Dissolve 1 tablet under the tongue every 5 minutes as needed for chest pain. FOR CHEST PAIN. IF NO RELIEF CALL 911 ramipril (ALTACE) 5 mg capsule Take 1 capsule by mouth once daily. metoprolol succinate ER (TOPROL XL) 100 mg Take 1 tablet by mouth once daily. Syringe with Needle, Disp, (MONOJECT TB SAFETY SYRINGE) 1 mL 25 gauge x 5/8" Use as directed once a month. blood sugar diagnostic (Revel Touch VERIO TEST STRIPS) test strip Test blood sugar(s) 3 times daily. Dx: Other DM Code E11.42 Insulin: Yes ketoconazole (NIZORAL) 2 % cream Apply 1 application to affected area once daily. Syringe with Needle, Safety 3 mL 23 gauge x 1" 1 Each as directed. Use one each with Vitamin B 12 injections weekly for 3 doses and then monthly. fluticasone (FLONASE) 50 mcg/actuation nasal spray Use 2 Sprays in each nostril once daily. Rinse mouth after use. Magnesium Oxide 500 mg tab Take 500 mg by mouth once daily. Cholecalciferol, Vitamin D3, 50 mcg (2,000 unit) cap Take 1 capsule by mouth once daily. calcium carbonate/vitamin D2 (CALCIUM 600 WITH VITAMIN D ORAL) Take 1 tablet by mouth once daily. melatonin 10 mg tab Take 1 tablet by mouth daily at bedtime. aspirin, enteric coated (ASPIR-LOW) 81 mg EC tablet Take 1 tablet by mouth once daily. MULTIVITAMIN ORAL Take by mouth. OTC One A Day Womens Spirometers and Accessories gui Incentive spirometer. Deep breathe hourly while awake. PT/INR test meter (COAGUCHEK XS PRO) misc Check Protime weekly. Dx: pulmonary embolism, V58.61 COMPOUNDED PRESCRIPTION Hospital bed all electric with adjustable head and feet. 415.19; 343.8; 782.3; 787.91; V43.65 No current facility-administered medications for this visit. Psychiatric Medication Issues: No change from previous appointment DIAGNOSIS: Hewett I: Depressive Disorder recurrent Morbidly Obese CP Hewett II : Deferred Hewett III : See medical history Hewett IV: Health (more content not included)... Normal [facility] CNOVon 03-04-2024 CNOV Office Visit (PSYLWM ) RANDOLPH HUNTER ([id number]) 1950 F Date Time Provider Department 03/04/24 11:00 AM GILMER COTTON PSYLWM During your visit today, we recorded the following information about you: Gilmer Cotton, PhD 03/04/2024 12:06 PM Signed [facility] Department Progress Note Randolph Hunter 03/04/2024 [id number] PROVIDER: Gilmer Cotton, PhD CPT Code: Time: 50 minutes Setting: Patient seen in person Parties Present: Patient Treatment Modality/Interventions: Cognitive Behavioral Reassurance/Supportive Problem solving Processing of emotions MENTAL STATUS: Mood: variable Affect: mood-congruent Thoughts/Associations:goal directed Suicidal/Homicidal Ideation: None expressed or evidenced Other Prominent Symptoms: Therapy Focus/Content of Session: Self-care, Mood/affect regulation, Self-esteem, and Coping with chronic illness Pt sending $200 monthly to her daughter in rehab apartment... 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 reading, games ie eucre etc/ MOOD: fairly stable and good recently seems a bit sharper cognitively today A1C is good but INR seems to be a bit volitile PLAN: work w medical community MEDICATIONS: Per medical record: Current Outpatient Medications Medication Sig albuterol (PROVENTIL) 2.5 mg /3 mL (0.083 %) nebulizer solution 3 mL as needed Inhalation every 6 hrs furosemide (LASIX) 80 mg tablet Take 1 tablet by mouth once daily. hydrOXYchloroQUINE (PLAQUENIL) 200 mg tablet mupirocin (BACTROBAN) 2 % ointment Apply to affected area once daily. APPLY TO AFFECTED AREA prazosin (MINIPRESS) 1 mg cap folic acid 1 mg tablet Take 1 tablet by mouth every afternoon. nitrofurantoin monohydrate and macrocrystal (MACROBID) 100 mg capsule escitalopram oxalate (LEXAPRO) 10 mg tablet Take 10 mg by mouth once daily. escitalopram oxalate (LEXAPRO) 5 mg tablet take 1 tablet by mouth once daily with 10 milligram to EQUAL 15MG FOR ANXIETY Nystatin, Bulk, 10 billion unit powd Apply to affected area. traZODone (DESYREL) 50 mg tablet Take 50 mg by mouth every evening. buPROPion XL (WELLBUTRIN XL) 300 mg 24 hr tablet 300 mg once daily. metFORMIN ER (GLUCOPHAGE XR) 500 mg 24 hr tablet Take 500 mg by mouth twice daily. levothyroxine (SYNTHROID) 150 mcg tablet Take 1 tablet by mouth once daily. Take on empty stomach. For thyroid HYDROcodone-acetaminophen (NORCO) 5-325 mg per tablet Take 1 tablet by mouth every 6 hours as needed for pain for up to 30 days. warfarin (COUMADIN) 5 mg tablet 7.5 mg Mon/Fri, 5 mg all other days or as directed mirtazapine (REMERON) 30 mg tablet Take 1 tablet by mouth daily at bedtime. (Patient not taking: No sig reported) gabapentin (NEURONTIN) 600 mg tablet Take 1 tablet by mouth three times daily for 180 days. cyanocobalamin 1,000 mcg/mL Inject 1 mL intramuscularly once every month. nitroglycerin sublingual (NITROQUICK) 0.4 mg SL tablet Dissolve 1 tablet under the tongue every 5 minutes as needed for chest pain. FOR CHEST PAIN. IF NO RELIEF CALL 911 ramipril (ALTACE) 5 mg capsule Take 1 capsule by mouth once daily. metoprolol succinate ER (TOPROL XL) 100 mg Take 1 tablet by mouth once daily. Syringe with Needle, Disp, (MONOJECT TB SAFETY SYRINGE) 1 mL 25 gauge x 5/8" Use as directed once a month. blood sugar diagnostic (BrainLABTOUCH VERIO TEST STRIPS) test strip Test blood sugar(s) 3 times daily. Dx: Other DM Code E11.42 Insulin: Yes ketoconazole (NIZORAL) 2 % cream Apply 1 application to affected area once daily. Syringe with Needle, Safety 3 mL 23 gauge x 1" 1 Each as directed. Use one each with Vitamin B 12 injections weekly for 3 doses and then monthly. fluticasone (FLONASE) 50 mcg/actuation nasal spray Use 2 Sprays in each nostril once daily. Rinse mouth after use. Magnesium Oxide 500 mg tab Take 500 mg by mouth once daily. Cholecalciferol, Vitamin D3, 50 mcg (2,000 unit) cap Take 1 capsule by mouth once daily. calcium carbonate/vitamin D2 (CALCIUM 600 WITH VITAMIN D ORAL) Take 1 tablet by mouth once daily. melatonin 10 mg tab Take 1 tablet by mouth daily at bedtime. aspirin, enteric coated (ASPIR-LOW) 81 mg EC tablet Take 1 tablet by mouth once daily. MULTIVITAMIN ORAL Take by mouth. OTC One A Day Womens Spirometers and Accessories gui Incentive spirometer. Deep breathe hourly while awake. PT/INR test meter (COAGUCHEK XS PRO) misc Check Protime weekly. Dx: pulmonary embolism, V58.61 COMPOUNDED PRESCRIPTION Hospital bed all electric with adjustable head and feet. 415.19; 343.8; 782.3; 787.91; V43.65 No current facility-administered medications for this v (more content not included)... Normal [facility] PATINSon 02-10-2024 PATINS Ordered treatment co mpleted and patient is healed. Patient discharged without any issues. All questions answered. Call the clinic if your wound reopens or a new wound appears at [phone]. Edema/Swelling: Avoid standing for long periouds of time. Elevate legs to the level of the heart or above for 30 minutes daily and /or when sitting, a frequency of daily and whenever sitting. Offloading: Keep pressure off of area. Avoid friction and rubbing to prevent wound worsening Nutritious: Follow a nutritious diet. Increase protein in your diet, 100 grams a day to promote wound healing Normal [facility] Progress Noteon 02-10-2024 Progress Note Assessments Nursing Assessment/Reassessment Score (check box all that apply) Reassessment of Co-morbidities (includes updates in patient status) 10 [x] Wound and Skin Assessment/Reassessment 5 [x] Reassessment of Adherence to Treatment Plan Simple Wound Assessment / Reassessment - one wound 5 [x] Complex Wound Assessment - multiple wounds (# of: 0 ) multiply by 5 to get score 0 [] Dermatologic / Skin Assessment (not related to wound area) 10 [x] Focused Assessment Circumferential Edema Measurements - multi extremities (# of: 0) multiply by 5 to get score 0 [] Nutritional Assessment/Counseling/Interven tion 10 [] Lower Extremity Assessment (monofilament, tuning fork, pulses) 5 [] Peripheral Arterial Disease Assessment (using hand-held doppler) 10 [] Ostomy and/or Continence Assessment & Care Incontinence Assessment and Management 10 [] Ostomy Care Assessment and Management (repouching, etc) 20 [] Process Coordination of Care Simple Patient/Family Education for ongoing care 15 [x] Complex (extensive) Patient/Family Education for ongoing of care 20 [] Staff obtains Consent, Records, Test Results/Process Orders 10 [] Staff telephones [facility], Nursing Homes/Clarify Orders 10 [] Routine Transfer to another Facility (non-emergent condition) 10 [] Routine Hospital Admission (non-emergent condition) 10 [] New Admissions/Insurance Auth/Ordering NPWT, skin substitute, etc. 15 [] Emergency Hospital Admission (emergent condition) 20 [] Simple Discharge Coordination 10 [x] Complex (extensive) Discharge Coordination 15 [] Special Needs Pediatric / Minor Patient Management 10 [] Isolation Patient Management 10 [] Hearing/Language/Visual Special Needs 15 [] Assessment of Community Assistance (transportation, discharge planning) 15 [] Additional Assistance / Altered Mentation 15 [] Support Surface Assessment (bed, cushion, seat) 15 [] Interventions Wound Cleansing/Measurement Simple Wound Cleansing - one wound 5 [] Complex Wound Cleansing - multiple wounds (# of: 0) multiply by 5 to get score 0 [] Wound Imaging (photographs - any number of wounds) 5 [x] Wound Tracing (instead of photographs) 5 [] Simple Wound Measurements - one wound 5 [x] Complex Wound Measuremnts - multiple wounds (#of: 0) multiply by 5 to get score 0 [] Wound Dressings Small Wound Dressing - one or multiple wounds (# of: 0 ) multiply by 10 to get score 0 [] Medium Wound Dressing - one or multiple wounds (# of: 0 ) multiply by 15 to get score 0 [] Large Wound Dressing - one or multiple wounds (# of: 0) multiply by 20 to get score 0 [] Application of Medications - topical 5 [x] Application of Medication - injection 10 [] Miscellaneous External Ear Exam Specimen Collection (culture, biopsies, blood, body fluids, etc) 5 [] Specimen/Culture sent or taken to lab for analysis 5 [] Patient Transfer (multiple staff/Carlos lift) 10 [] Simple Staple/Suture Removal (25 or less) 5 [] Complex Staple/Suture Removal (26 or more) 10 [] Hypo/Hyperglycemic Management 10 [] Ankle/Brachial Index (RAÚL) 15 [] Vital Signs 5 [x] Total Points - Use to Determine Level of Clinic Visit 75 Points Willis: Level 1 (1-35 Points) Level 2 (40-75 Points) Level 3 (80-115 Points) Level 4 (120-155 Points) Level 5 (160 or more Points) Normal [facility] Progress Note Subjective Patient ID: Randolph Hunter is a 73 y.o. female who presents for wound care. HPI Here for recheck L plantar foot wound. Feels it is resolved. No drainage. No irritation. Review of Systems Constitutional: Negative. Respiratory: Negative. Cardiovascular: Negative. Skin: Negative for color change, rash and wound. Objective Temp 36.5 ?C (97.7 ?F) Physical Exam Vitals reviewed. Constitutional: General: She is not in acute distress. Appearance: Normal appearance. She is not ill-appearing or toxic-appearing. HENT: Ears: Comments: Hearing to conversational voice is normal. Pulmonary: Effort: Pulmonary effort is normal. Breath sounds: No wheezing (No audible wheeze). Skin: General: Skin is warm and dry. Findings: No ecchymosis (no periwound erythema), rash or wound. Comments: No open areas. No local evidence of cellulitis Neurological: Mental Status: She is alert and oriented to person, place, and time. Psychiatric: Thought Content: Thought content normal. 1. Pressure ulcer of right foot, stage 3 (HCC) Pt ed, reassure Reviewed offloading/shear Reviewed protein/nutrition Recheck prn Pt agrees with plan . Normal [facility] CNOVon 01-29-2024 CNOV Office Visit (PSYLWM ) RANDOLPH HUNTER ([id number]) 1950 F Date Time Provider Department 01/29/24 11:00 AM GILMER COTTON PSYLWM During your visit today, we recorded the following information about you: Gilmer Cotton, PhD 01/29/2024 12:00 PM Signed [facility] Progress Note Randolph Hunter 01/29/2024 [id number] PROVIDER: Gilmer Cotton, PhD CPT Code: Time: 50 minutes Setting: Patient seen in person Parties Present: Patient Treatment Modality/Interventions: Cognitive Behavioral Reassurance/Supportive Problem solving Psychoeducation MENTAL STATUS: Mood: variable Affect: mood-congruent Thoughts/Associations:goal directed Suicidal/Homicidal Ideation: None expressed or evidenced Other Prominent Symptoms: Therapy Focus/Content of Session: Self-care, Mood/affect regulation, and Self-esteem MOOD: pt mentally sharp today in spite of issues w foot etc. Daughter is in rehab and they have been sending money PLAN: limit it to 200/mo from here forward : continues to slip a little re cognitive functioning but sounds stable at present Living quarters: the new owners seem responsive but it is slow to get the [address] [facility] residences each up to speed MEDICATIONS: Per medical record: Current Outpatient Medications Medication Sig albuterol (PROVENTIL) 2.5 mg /3 mL (0.083 %) nebulizer solution 3 mL as needed Inhalation every 6 hrs furosemide (LASIX) 80 mg tablet Take 1 tablet by mouth once daily. hydrOXYchloroQUINE (PLAQUENIL) 200 mg tablet mupirocin (BACTROBAN) 2 % ointment Apply to affected area once daily. APPLY TO AFFECTED AREA prazosin (MINIPRESS) 1 mg cap folic acid 1 mg tablet Take 1 tablet by mouth every afternoon. nitrofurantoin monohydrate and macrocrystal (MACROBID) 100 mg capsule escitalopram oxalate (LEXAPRO) 10 mg tablet Take 10 mg by mouth once daily. escitalopram oxalate (LEXAPRO) 5 mg tablet take 1 tablet by mouth once daily with 10 milligram to EQUAL 15MG FOR ANXIETY Nystatin, Bulk, 10 billion unit powd Apply to affected area. traZODone (DESYREL) 50 mg tablet Take 50 mg by mouth every evening. buPROPion XL (WELLBUTRIN XL) 300 mg 24 hr tablet 300 mg once daily. metFORMIN ER (GLUCOPHAGE XR) 500 mg 24 hr tablet Take 500 mg by mouth twice daily. levothyroxine (SYNTHROID) 150 mcg tablet Take 1 tablet by mouth once daily. Take on empty stomach. For thyroid HYDROcodone-acetaminophen (NORCO) 5-325 mg per tablet Take 1 tablet by mouth every 6 hours as needed for pain for up to 30 days. warfarin (COUMADIN) 5 mg tablet 7.5 mg Mon/Fri, 5 mg all other days or as directed mirtazapine (REMERON) 30 mg tablet Take 1 tablet by mouth daily at bedtime. (Patient not taking: No sig reported) gabapentin (NEURONTIN) 600 mg tablet Take 1 tablet by mouth three times daily for 180 days. cyanocobalamin 1,000 mcg/mL Inject 1 mL intramuscularly once every month. nitroglycerin sublingual (NITROQUICK) 0.4 mg SL tablet Dissolve 1 tablet under the tongue every 5 minutes as needed for chest pain. FOR CHEST PAIN. IF NO RELIEF CALL 911 ramipril (ALTACE) 5 mg capsule Take 1 capsule by mouth once daily. metoprolol succinate ER (TOPROL XL) 100 mg Take 1 tablet by mouth once daily. Syringe with Needle, Disp, (MONOJECT TB SAFETY SYRINGE) 1 mL 25 gauge x 5/8" Use as directed once a month. blood sugar diagnostic ([employer] VERIO TEST STRIPS) test strip Test blood sugar(s) 3 times daily. Dx: Other DM Code E11.42 Insulin: Yes ketoconazole (NIZORAL) 2 % cream Apply 1 application to affected area once daily. Syringe with Needle, Safety 3 mL 23 gauge x 1" 1 Each as directed. Use one each with Vitamin B 12 injections weekly for 3 doses and then monthly. fluticasone (FLONASE) 50 mcg/actuation nasal spray Use 2 Sprays in each nostril once daily. Rinse mouth after use. Magnesium Oxide 500 mg tab Take 500 mg by mouth once daily. Cholecalciferol, Vitamin D3, 50 mcg (2,000 unit) cap Take 1 capsule by mouth once daily. calcium carbonate/vitamin D2 (CALCIUM 600 WITH VITAMIN D ORAL) Take 1 tablet by mouth once daily. melatonin 10 mg tab Take 1 tablet by mouth daily at bedtime. aspirin, enteric coated (ASPIR-LOW) 81 mg EC tablet Take 1 tablet by mouth once daily. MULTIVITAMIN ORAL Take by mouth. OTC One A Day Womens Spirometers and Accessories gui Incentive spirometer. Deep breathe hourly while awake. PT/INR test meter (COAGUCHEK XS PRO) misc Check Protime weekly. Dx: pulmonary embolism, V58.61 COMPOUNDED PRESCRIPTION Hospital bed all electric with adjustable head and feet. 415.19; 343.8; 782.3; 787.91; V43.65 No current facility-administered medications for this visit. Psychiatric Medication Issues: No change from previous appointment DIAGNOSIS: Hewett I: Depressive Disorder recurrent Morbidly Obese CP Hewett II : Deferred Hewett III : See (more content not included)... Normal [facility] No Panel Informationon 01-26 Isaac Chicas DO 01/27/2024 1:59 PM Debridement Wound/Incision 01/20/24 Diabetic Ulcer Foot Left Performed by: Isaac Chicas DO Authorized by: Isaac Chicas, DO Consent Consent obtained? verbal Consent given by: patient Risks discussed? procedural risks discussed Immediately prior to the procedure a time out was called and the performing provider verified the correct patient, procedure, equipment, operations support professionals, and site/side marked as required. Debridement Details Performed by: physician Debridement type: surgical Level of debridement: subcutaneous tissue Pain control: lidocaine 2% Pain control administration type: topical Pre-debridement measurements Length (cm): 0.4 Width (cm): 0.6 Depth (cm): 0.1 Surface Area (cm^2): 0.24 Post-debridement measurements Length (cm): 0.5 Width (cm): 0.7 Depth (cm): 0.2 Percent debrided: 100% Surface Area (cm^2): 0.35 Area Debrided (cm^2): 0.35 Volume (cm^3): 0.07 Tissue and other material debrided: dermis, epidermis and subcutaneous tissue Devitalized tissue debrided: biofilm and slough Instrument(s) utilized: curette Bleeding: small Hemostasis obtained with: pressure Procedural pain (0-10): 1 Post-procedural pain: 0 Response to treatment: procedure was tolerated well [facility] PATINSon 01-27-2024 PATINS Follow-up Appointmen ts: Return Appointment in 1 week. Call [facility] at [phone], [facility] at [phone], or [facility] at [phone]. Edema/Swelling: Avoid standing for long periouds of time. Elevate legs to the level of the heart or above for 30 minutes daily and /or when sitting, a frequency of daily and whenever sitting. Offloading: Keep pressure off of area. Avoid friction and rubbing to prevent wound worsening Nutritious: Follow a nutritious diet. Increase protein in your diet, 100 grams a day to promote wound healing Wound Treatment: Three times a week Cleanse wound with mild soap and water and pat dry. Apply moistened collagen to wound bed. Apply Mesalt Pad Apply dry dressing to cover the wound and secure with tape. Normal [facility] No Panel Informationon 01-19 Isaac Chicas DO 01/20/2024 3:54 PM Debridement Wound/Incision 01/20/24 Pressure Injury Foot Left Performed by: Isaac Chicas DO Authorized by: Isaac Chicas, Consent Consent obtained? verbal Consent given by: patient Risks discussed? procedural risks discussed Immediately prior to the procedure a time out was called and the performing provider verified the correct patient, procedure, equipment, operations support professionals, and site/side marked as required. Debridement Details Performed by: physician Debridement type: surgical Level of debridement: subcutaneous tissue Pain control: lidocaine 2% Pain control administration type: topical Pre-debridement measurements Length (cm): 0.7 Width (cm): 0.8 Depth (cm): 0.2 Surface Area (cm^2): 0.56 Post-debridement measurements Length (cm): 0.9 Width (cm): 0.9 Depth (cm): 0.3 Percent debrided: 100% Surface Area (cm^2): 0.81 Area Debrided (cm^2): 0.81 Volume (cm^3): 0.24 Tissue and other material debrided: dermis, epidermis and subcutaneous tissue Devitalized tissue debrided: biofilm and slough Instrument(s) utilized: curette Bleeding: small Hemostasis obtained with: pressure Procedural pain (0-10): 0 Post-procedural pain: 0 Response to treatment: procedure was tolerated well [facility] PATINSon 01-20-2024 PATINS Follow-up Appointmen ts: Return Appointment in 1 week. Call [facility] at [phone], [facility] at [phone], or [facility] at [phone]. Edema/Swelling: Avoid standing for long periouds of time. Elevate legs to the level of the heart or above for 30 minutes daily and /or when sitting, a frequency of daily and whenever sitting. Offloading: Keep pressure off of area. Avoid friction and rubbing to prevent wound worsening Nutritious: Follow a nutritious diet. Increase protein in your diet, 100 grams a day to promote wound healing Wound Treatment: Three times a week Cleanse wound with mild soap and water and pat dry. Apply moistened collagen to wound bed. Apply Mesalt Pad Apply dry dressing to cover the wound and secure with tape. Normal [facility] Progress Noteon 01-20-2024 Progress Note [facility] W[facility] OSTOMY [address] [facility] [id number] Loc: [phone] Wound Care Visit - New Patient Progress Note CHIEF COMPLAINT: Wound Care HISTORY OF PRESENT ILLNESS: The patient is a 73 y.o. female arrives with wound of L foot. States she has had this in past. States she has CP with L side affected. Uses L foot for transfers. States she cannot help this and therefore occasionally has wound. States collagen has worked well for her in past. PAST MEDICAL HISTORY Past Medical History: Diagnosis Date Anemia of chronic disease Asthma B12 deficiency Brachial neuritis CAD (coronary artery disease) Cerebral palsy (HCC) Depression Diabetes (HCC) Fatty liver Frequent falls HLD (hyperlipidemia) Hyperparathyroidism (HCC) Lupus (CMS/HCC) (HCC) Migraine headache with aura Neuropathy Obesity Pulmonary emboli (HCC) Pulmonary embolism (HCC) Systemic lupus erythematosus (CMS/HCC) (HCC) Type 2 diabetes mellitus (HCC) PAST SURGICAL HISTORY Past Surgical History: Procedure Laterality Date TOTAL KNEE ARTHROPLASTY Right Medications reviewed Medical history reviewed Allergies reviewed Current Medications: Current Outpatient Medications: alpha tocopherol (Vitamin E) 400 units capsule, Take 400 Units by mouth in the morning and 400 Units in the evening., Disp: , Rfl: aspirin 81 MG EC tablet, Take 81 mg by mouth daily., Disp: , Rfl: buPROPion SR (Wellbutrin SR) 150 MG 12 hr tablet, Take 150 mg by mouth daily., Disp: , Rfl: cholecalciferol (Vitamin D-3) 50 MCG (1999 UT) capsule, Take 2,000 Units by mouth daily., Disp: , Rfl: cyanocobalamin (Vitamin B-12) 500 MCG tablet, Take 500 mcg by mouth daily., Disp: , Rfl: escitalopram (Lexapro) 10 MG tablet, Take 10 mg by mouth in the morning., Disp: , Rfl: escitalopram (Lexapro) 5 MG tablet, take 1 tablet by mouth once daily with 10 milligram to EQUAL 15MG FOR ANXIETY, Disp: , Rfl: fluticasone (Flonase) 50 MCG/ACT nasal spray, Administer 1 spray into each nostril daily., Disp: , Rfl: folic acid (Folvite) 1 MG tablet, Take 1 tablet by mouth daily., Disp: , Rfl: gabapentin (Neurontin) 300 MG capsule, 1 tablet Orally three ti,es a day, Disp: , Rfl: HYDROcodone-acetaminophen ([place]) 5-325 MG tablet, Take 1 tablet by mouth every 6 hours as needed., Disp: , Rfl: hydroxychloroquine (Plaquenil) 200 MG tablet, Take 1 tablet by mouth in the morning and 1 tablet in the evening., Disp: , Rfl: hydrOXYzine pamoate (Vistaril) 25 MG capsule, Take 25 mg by mouth in the morning and 25 mg in the evening., Disp: , Rfl: levothyroxine (Synthroid, Levoxyl) 150 MCG tablet, Take 150 mcg by mouth daily., Disp: , Rfl: metFORMIN (Glucophage) 500 MG tablet, Take 500 mg by mouth in the morning and 500 mg in the evening. Take with meals., Disp: , Rfl: metoprolol succinate XL (Toprol-XL) 100 MG 24 hr tablet, Take 100 mg by mouth daily at bedtime., Disp: , Rfl: mupirocin (Bactroban) 2 % ointment, Apply topically daily., Disp: , Rfl: nitroglycerin (Nitrostat) 0.4 MG SL tablet, Place under the tongue., Disp: , Rfl: nystatin (Mycostatin) [id number] UNIT/GM powder, Apply topically 2 times daily., Disp: , Rfl: nystatin (Mycostatin) cream, Apply topically 3 times daily., Disp: , Rfl: prazosin (Minipress) 1 MG capsule, , Disp: , Rfl: ramipril (Altace) 5 MG capsule, Take 1 capsule by mouth Every 24 hours., Disp: , Rfl: traZODone (Desyrel) 50 MG tablet, Take 50 mg by mouth every evening., Disp: , Rfl: warfarin (Coumadin) 5 MG tablet, Take 1 tablet by mouth daily., Disp: , Rfl: magnesium oxide 500 MG tablet, Take by mouth., Disp: , Rfl: REVIEW OF SYSTEMS: Review of Systems Constitutional: Negative. Negative for chills, fatigue and fever. Respiratory: Negative. Cardiovascular: Negative. Skin: Positive for wound. Negative for color change (from typical for patient) and rash. PHYSICAL EXAM: BP 112/70 (BP Location: Left arm, Patient Position: Sitting) Pulse 79 Temp 36.2 ?C (97.2 ?F) Resp 18 Ht 5' 2" (1.575 m) Wt 213 lb (96.6 kg) BMI 38.96 kg/m? Physical Exam Vitals reviewed. Constitutional: General: She is not in acute distress. Appearance: Normal appearance. She is not ill-appearing or toxic-appearing. HENT: Ears: Comments: Hearing to conversational voice is normal. Pulmonary: Effort: Pulmonary effort is normal. Breath sounds: No wheezing (No audible wheeze). Skin: General: Skin is warm. Comments: Wound is plantar 1st met head. Little drainage. Some slough. Some callus. No evidence of cellulitis. See photos and measurements. Neurological: Mental Status: She is alert and oriented to person, place, and time. Psychiatric: Thought Content: Thought content normal. Debridement Wound/Incision 01/20/24 Pressure Injury Foot Left Performed by: Isaac Chicas, DO Authorized by: Isaac Chicas, DO Consent Consent obtained? verbal Consent given (more content not included)... Normal [facility] Progress Note Assessments Nursing Assessment/Reassessment Score (check box all that apply) General Physical Exam 20 [x] Comprehensive Assessment (history, ROS, Risk Assessments, wound hx, etc) 25 [x] Wound and skin Assessment/Reassessment Dermatologic / Skin Assessment (not related to wound area) 10 [x] Ostomy and/or Continence Assessment & Care Incontinence Assessment and Management 10 [] Ostomy Care Assessment and Management (repouching, etc) 20 [] Process Coordination of Care Simple Patient/Family Education for ongoing care 15 [x] Complex (extensive) Patient/Family Education for ongoing of care 20 [] Staff obtains Consent, Records, Test Results/Process Orders 10 [x] Staff telephones [facility], Nursing Homes/Clarify Orders 10 [] Routine Transfer to another Facility (non-emergent condition) 10 [] Routine Hospital Admission (non-emergent condition) 10 [] New Admissions/Insurance Auth/Ordering NPWT, skin substitute, etc. 15 [x] Emergency Hospital Admission (emergent condition) 20 [] Special Needs Pediatric / Minor Patient Management 10 [] Isolation Patient Management 10 [] Hearing/Language/Visual Special Needs 15 [] Assessment of Community Assistance (transportation, discharge planning) 15 [] Additional Assistance / Altered Mentation 15 [] Support Surface Assessment (bed, cushion, seat) 15 [] Interventions Miscellaneous External Ear Exam 5 [] Patient Transfer (multiple staff/Carlos lift) 10 [] Simple Staple/Suture Removal (25 or less) 5 [] Complex Staple/Suture Removal (26 or more) 10 [] Hypo/Hyperglycemic Management 10 [] Ankle/Brachial Index (RAÚL) 15 [] Total Points - Use to Determine Level of Clinic Visit 85 Points Willis: Level 1 (1-35 Points) Level 2 (40-75 Points) Level 3 (80-115 Points) Level 4 (120-155 Points) Level 5 (160 or more Points) [facility] CNOVon 12-25-2023 CNOV Office Visit (PSYLWM ) RANDOLPH HUNTER ([id number]) 1950 F Date Time Provider Department 12/25/23 11:00 AM GILMER COTTON PSJADYNWMariella During your visit today, we recorded the following information about you: Gilmer Cotton, PhD 12/25/2023 11:56 AM Signed [facility] Progress Note Randolph Hunter 12/25/2023 [id number] PROVIDER: Gilmer Cotton, PhD CPT Code: Time: 50 minutes Setting: Patient seen in person Parties Present: Patient Treatment Modality/Interventions: Cognitive Behavioral Reassurance/Supportive Insight oriented Problem solving Processing of emotions Psychoeducation MENTAL STATUS: Mood: variable, irritable Affect: mood-congruent Thoughts/Associations:goal directed Suicidal/Homicidal Ideation: None expressed or evidenced Other Prominent Symptoms: Therapy Focus/Content of Session: Self-care, Stress management, Mood/affect regulation, and Self-esteem LOTS OF STRESSORS: Khadra is in an apartment for 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 daughter is a month old and doing well as a couple Issues remain w living situation and is slowly a bit worse but still ok MOOD: frustrated but handling things at the end of the day MEDICATIONS: Per medical record: Current Outpatient Medications Medication Sig albuterol (PROVENTIL) 2.5 mg /3 mL (0.083 %) nebulizer solution 3 mL as needed Inhalation every 6 hrs furosemide (LASIX) 80 mg tablet Take 1 tablet by mouth once daily. hydrOXYchloroQUINE (PLAQUENIL) 200 mg tablet mupirocin (BACTROBAN) 2 % ointment Apply to affected area once daily. APPLY TO AFFECTED AREA prazosin (MINIPRESS) 1 mg cap folic acid 1 mg tablet Take 1 tablet by mouth every afternoon. nitrofurantoin monohydrate and macrocrystal (MACROBID) 100 mg capsule escitalopram oxalate (LEXAPRO) 10 mg tablet Take 10 mg by mouth once daily. escitalopram oxalate (LEXAPRO) 5 mg tablet take 1 tablet by mouth once daily with 10 milligram to EQUAL 15MG FOR ANXIETY Nystatin, Bulk, 10 billion unit powd Apply to affected area. traZODone (DESYREL) 50 mg tablet Take 50 mg by mouth every evening. buPROPion XL (WELLBUTRIN XL) 300 mg 24 hr tablet 300 mg once daily. metFORMIN ER (GLUCOPHAGE XR) 500 mg 24 hr tablet Take 500 mg by mouth twice daily. levothyroxine (SYNTHROID) 150 mcg tablet Take 1 tablet by mouth once daily. Take on empty stomach. For thyroid HYDROcodone-acetaminophen (NORCO) 5-325 mg per tablet Take 1 tablet by mouth every 6 hours as needed for pain for up to 30 days. warfarin (COUMADIN) 5 mg tablet 7.5 mg Mon/Fri, 5 mg all other days or as directed mirtazapine (REMERON) 30 mg tablet Take 1 tablet by mouth daily at bedtime. (Patient not taking: No sig reported) gabapentin (NEURONTIN) 600 mg tablet Take 1 tablet by mouth three times daily for 180 days. cyanocobalamin 1,000 mcg/mL Inject 1 mL intramuscularly once every month. nitroglycerin sublingual (NITROQUICK) 0.4 mg SL tablet Dissolve 1 tablet under the tongue every 5 minutes as needed for chest pain. FOR CHEST PAIN. IF NO RELIEF CALL 911 ramipril (ALTACE) 5 mg capsule Take 1 capsule by mouth once daily. metoprolol succinate ER (TOPROL XL) 100 mg Take 1 tablet by mouth once daily. Syringe with Needle, Disp, (MONOJECT TB SAFETY SYRINGE) 1 mL 25 gauge x 5/8" Use as directed once a month. blood sugar diagnostic (BrainLABTOUCH VERIO TEST STRIPS) test strip Test blood sugar(s) 3 times daily. Dx: Other DM Code E11.42 Insulin: Yes ketoconazole (NIZORAL) 2 % cream Apply 1 application to affected area once daily. Syringe with Needle, Safety 3 mL 23 gauge x 1" 1 Each as directed. Use one each with Vitamin B 12 injections weekly for 3 doses and then monthly. fluticasone (FLONASE) 50 mcg/actuation nasal spray Use 2 Sprays in each nostril once daily. Rinse mouth after use. Magnesium Oxide 500 mg tab Take 500 mg by mouth once daily. Cholecalciferol, Vitamin D3, 50 mcg (2,000 unit) cap Take 1 capsule by mouth once daily. calcium carbonate/vitamin D2 (CALCIUM 600 WITH VITAMIN D ORAL) Take 1 tablet by mouth once daily. melatonin 10 mg tab Take 1 tablet by mouth daily at bedtime. aspirin, enteric coated (ASPIR-LOW) 81 mg EC tablet Take 1 tablet by mouth once daily. MULTIVITAMIN ORAL Take by mouth. OTC One A Day Womens Spirometers and Accessories gui Incentive spirometer. Deep breathe hourly while awake. PT/INR test meter (COAGUCHEK XS PRO) misc Check Protime weekly. Dx: pulmonary embolism, V58.61 COMPOUNDED PRESCRIPTION Hospital bed all electric with adjustable head and feet. 415.19; 343.8; 782.3; 787.91; V43.65 No current facility-administered medications for (more content not included)... Normal [facility] ED Nursing Noteon 12-16-2023 ED Nursing Note Patient wheeled out ED for transport to residence. discharge instructions sent to facility with patient. No further questions. Respirations even and non labored. No acute distress. A&O x4. Gifty Cornell RN 12/16/23 0015 Normal [facility] BASIC METABOLIC PANELon 11-21 Anion gap [Moles/Vol] 4 mmol/L Normal 3-13 [facility] Comment on above: Performed By: #### L AB149, LAB15 ####Cloth Grader: PING TOWNSEND ([phone])[facility] ([facility])[address] [place] [address] Calcium [Mass/Vol] 8.7 mg/dL Normal 8.4-10.4 [facility] Comment on above: Performed By: #### L AB149, LAB15 ####Cloth Grader: PING TOWNSEND ([phone])[facility] ([facility])[address] [place] [address] Chloride [Moles/Vol] 99 mmol/L Normal 98-107 [facility] Comment on above: Performed By: #### L AB149, LAB15 ####Cloth Grader: PING TOWNSEND ([phone])[facility] ([facility])[address] [place] [address] [place] CO2 [Moles/Vol] 32 mmol/L High 22-30 [facility] Comment on above: Performed By: #### L AB149, LAB15 ####Cloth Grader: PING TOWNSEND ([phone])[facility] ([facility])[address] [place] [address] [place] Creatinine [Mass/Vol] 1.03 mg/dL Normal 0.52-1.04 [facility] Comment on above: Performed By: #### L AB149, LAB15 ####Cloth Grader: PING TOWNSEND ([phone])[facility] ([facility])[address] [place] [address] [place] GLOMERULAR FILTRATION RATE ML/MIN/1.73 SQ M.PREDICTED 57.9 mL/min/1.73m*2 Low >60.0 [facility] Comment on above: Result Comment: Calc ulation based on the Chronic Kidney Disease Epidemiology Collaboration (CKD-EPI) equation refit without adjustment for race Performed By: #### L AB149, LAB15 ####Cloth Grader: PING TOWNSEND ([phone])[facility] ([facility])[address] [place] [address] [place] Glucose [Mass/Vol] 104 mg/dL High 70-100 [facility] Comment on above: Performed By: #### L AB149, LAB15 ####Cloth Grader: PING TOWNSEND ([phone])[facility] ([facility])[address] [place] [address] [place] Potassium [Moles/Vol] 4.5 mmol/L Normal 3.5-5.1 [facility] Comment on above: Performed By: #### L AB149, LAB15 ####Cloth Grader: PING TOWNSEND ([phone])[facility] ([facility])[address] [place] [address] [place] Sodium [Moles/Vol] 135 mmol/L Normal 135-145 [facility] Comment on above: Performed By: #### L AB149, LAB15 ####Cloth Grader: PING TOWNSEND ([phone])[facility] ERIC CODYTMAN ([facility])[address] [place] [address] Urea nitrogen [Mass/Vol] 12 mg/dL Normal 7-17 [facility] Comment on above: Performed By: #### L AB149, LAB15 ####Cloth Grader: PING TOWNSEND ([phone])[facility] SHAHAN ([facility])[address] [place] [address] BLOOD CULTUREon 12-15-2023 Bacteria identified Cx Nom (Bld) BLOOD CULTURE Reference No growth at 5 days ORDER COMMENTS: Blood Collection Site: Right Antecubital [ S = SUSCEPTIBLE R = RESISTANT I = INTERMEDIATE S-DD = Susceptible-dose dependent NS = Non-susceptible NO = No Interpretation ] Normal [facility] Comment on above: Performed By: #### L [id number] ####Cloth Grader: PING TOWNSEND ([phone])[facility] ([facility])[address] [place] [address] Bacteria identified Cx Nom (Bld) BLOOD CULTURE Reference No growth at 5 days ORDER COMMENTS: Blood Collection Site: Left Antecubital [ S = SUSCEPTIBLE R = RESISTANT I = INTERMEDIATE S-DD = Susceptible-dose dependent NS = Non-susceptible NO = No Interpretation ] Normal [facility] Comment on above: Performed By: #### L [id number] ####Cloth Grader: PING TOWNSEND ([phone])[facility] ([facility])[address] [place] [address] Basic metabolic 1998 panelon 12-15-2023 Anion gap [Moles/Vol] 4 mmol/L 3 - 13 mmol/L [facility] Calcium [Mass/Vol] 8.7 mg/dL 8.4 - 10. 4 mg/dL [facility] Chloride [Moles/Vol] 99 mmol/L 98 - 107 mmol/L [facility] CO2 [Moles/Vol] 32 mmol/L High 22 - 30 mmol/L [facility] Creatinine [Mass/Vol] 1.03 mg/dL 0.52 - 1.04 mg/dL [facility] [employer] GFR/1.73 sq M.predicted MDRD (S/P/Bld) [Vol rate/Area] 57.9 mL/min/{1.73_m2} Low - PINF [facility] [employer] Comment on above: Calculation based on the Chronic Kidney Disease Epidemiology Collaboration (CKD-EPI) equation refit without adjustment for race Glucose [Mass/Vol] 104 mg/dL High 70 - 100 mg/dL [facility] [employer] Potassium [Moles/Vol] 4.5 mmol/L 3.5 - 5.1 mmol/L [facility] [employer] Sodium [Moles/Vol] 135 mmol/L 135 - 145 mmol/L [facility] [employer] Urea nitrogen [Mass/Vol] 12 mg/dL 7 - 17 mg/dL [facility] C-REACTIVE PROTEINon 024 CRP [Mass/Vol] 57.4 mg/L High <10.0 [facility] Comment on above: Performed By: #### L AB149, LAB15 ####Cloth Grader: PING TOWNSEND ([phone])[facility] ([facility])[address] [place] [address] CBC W Auto Differential pane l (Bld)on 12-15-2023 Basophils (Bld) [#/Vol] 0.0 10*3/uL 0.0 - 0.2 10*3/uL [facility] Basophils/100 WBC (Bld) 0.2 % 0.0 - 2.0 % [facility] [employer] Eosinophils (Bld) [#/Vol] 0.1 10*3/uL 0.0 - 0.5 10*3/uL [facility] [employer] Eosinophils/100 WBC (Bld) 0.7 % 0.0 - 6.0 % [facility] [employer] Erythrocyte distribution width (RBC) [Ratio] 12.6 % 11.5 - 15.0 % [facility] [employer] Hematocrit (Bld) [Volume fraction] 38.3 % 35.0 - 47.0 % [facility] Hemoglobin (Bld) [Mass/Vol] 13.1 g/dL 11.7 - 16.0 g/dL [facility] [employer] Immature granulocytes (Bld) [#/Vol] 0.0 10*3/uL NINF - 0.1 10*3/uL [facility] Immature granulocytes/100 WBC (Bld) 0.2 % 0.0 - 2.0 % [facility] Interpretation and review of laboratory results Abnormal [facility] IPF 3 [facility] Lymphocytes (Bld) [#/Vol] 0.9 10*3/uL Low 1.0 - 4.3 10*3/uL [facility] Lymphocytes/100 WBC (Bld) 11.2 % Low 15.0 - 45.0 % [facility] MCH (RBC) [Entitic mass] 31.2 pg 26.0 - 34.0 pg [facility] MCHC (RBC) [Mass/Vol] 34.2 % 30.5 - 36.0 % [facility] MCV (RBC) [Entitic vol] 91.2 fL 77.0 - 99.0 fL [facility] Monocytes (Bld) [#/Vol] 0.5 10*3/uL 0.0 - 0.9 10*3/uL [facility] Monocytes/100 WBC (Bld) 5.6 % 5.0 - 13.0 % [facility] Neutrophils (Bld) [#/Vol] 6.8 10*3/uL 1.8 - 7.5 10*3/uL [facility] Neutrophils/100 WBC (Bld) 82.1 % High 38.0 - 82.0 % [facility] Nucleated RBC/100 WBC (Bld) [Ratio] 0.0 % [facility] Platelet mean volume (Bld) [Entitic vol] 10.1 fL 9.0 - 12.7 fL [facility] Platelets (Bld) [#/Vol] 149 10*3/uL 140 - 440 10*3/uL [facility] RBC (Bld) [#/Vol] 4.20 10*6/uL 3.80 - 5.20 10*6/uL [facility] WBC (Bld) [#/Vol] 8.3 10*3/uL 3.6 - 10.7 10*3/uL [facility] CBC WITH AUTO DIFFERENTIALon 12-15-2023 Basophils (Bld) [#/Vol] 0.0 10*3/uL Normal 0.0-0.2 [facility] Comment on above: Performed By: #### L [id number], [id number] ####Cloth Grader: PING TOWNSEND ([phone])[facility] ([facility])[address] [place] [address] [place] Basophils/100 WBC (Bld) 0.2 % Normal 0.0-2.0 [facility] Comment on above: Performed By: #### L [id number], [id number] ####Cloth Grader: PING TOWNSEND ([id number])[facility] ([facility])[address] [place] [address] [place] Eosinophils (Bld) [#/Vol] 0.1 10*3/uL Normal 0.0-0.5 [facility] Comment on above: Performed By: #### Abiodun AB322, [id number] ####Cloth Grader: PING TOWNSEND ([phone])[facility] ([facility])[address] [place] [address] [place] Eosinophils/100 WBC (Bld) 0.7 % Normal 0.0-6.0 [facility] Comment on above: Performed By: #### Abiodun [id number], [id number] ####Cloth Grader: PING TOWNSEND ([phone])[facility] ([facility])[address] [place] [address] Erythrocyte distribution width (RBC) [Ratio] 12.6 % Normal 11.5-15.0 [facility] Comment on above: Performed By: #### Abiodun [id number], [id number] ####Cloth Grader: PING TOWNSEND ([id number])[facility] ([facility])[address] [place] [address] Hematocrit (Bld) [Volume fraction] 38.3 % Normal 35.0-47.0 [facility] Comment on above: Performed By: #### L AB322, [id number] ####Cloth Grader: PING TOWNSEND ([phone])[facility] ([facility])[address] [place] [address] Hemoglobin (Bld) [Mass/Vol] 13.1 g/dL Normal 11.7-16.0 [facility] Comment on above: Performed By: #### L AB322, [id number] ####Cloth Grader: PING TOWNSEND ([phone])[facility] ([facility])[address] [place] [address] IMMATURE GRANS % 0.2 % Normal 0.0-2.0 [facility] Comment on above: Performed By: #### Abiodun [id number], [id number] ####Cloth Grader: PING TOWNSEND ([phone])[facility] ([facility])[address] [place] [address] IMMATURE GRANS ABSOLUTE 0.0 10*3/uL Normal <0.1 [facility] Comment on above: Performed By: #### Abiodun [id number], [id number] ####Cloth Grader: PING TOWNSEND ([phone])[facility] LANGSTONERIC RITTMAN ([facility])[address] [place] [address] [place] IPF 3 Normal [facility] Comment on above: Performed By: #### Abiodun AB322, [id number] ####Cloth Grader: PING TOWNSEND ([phone])[facility] ([facility])[address] [place] [address] [place] Lymphocytes (Bld) [#/Vol] 0.9 10*3/uL Low 1.0-4.3 [facility] Comment on above: Performed By: #### Abiodun AB322, [id number] ####Cloth Grader: PING TOWNSEND ([phone])[facility] ([facility])[address] [place] [address] [place] Lymphocytes/100 WBC (Bld) 11.2 % Low 15.0-45.0 [facility] Comment on above: Performed By: #### L AB322, [id number] ####Cloth Grader: PING TOWNSEND ([phone])[facility] LANGSTONERIC R[facility]TMAN ([facility])[address] [place] [address] MCH (RBC) [Entitic mass] 31.2 pg Normal 26.0-34.0 [facility] Comment on above: Performed By: #### L AB322, [id number] ####Cloth Grader: PING TOWNSEND ([phone])[facility] ([facility])[address] [place] [address] MCHC 34.2 % Normal 30.5-36.0 [facility] Comment on above: Performed By: #### Abiodun AB322, [id number] ####Cloth Grader: PING TOWNSEND ([phone])[facility] ([facility])[address] [place] [address] MCV (RBC) [Entitic vol] 91.2 fL Normal 77.0-99.0 [facility] Comment on above: Performed By: #### Abiodun AB322, [id number] ####Cloth Grader: PING TOWNSEND ([phone])[facility] ([facility])[address] [place] [address] Monocytes (Bld) [#/Vol] 0.5 10*3/uL Normal 0.0-0.9 [facility] Comment on above: Performed By: #### L AB322, [id number] ####Cloth Grader: PING TOWNSEND ([id number])[facility] ([facility])[address] [place] [address] [place] Monocytes/100 WBC (Bld) 5.6 % Normal 5.0-13.0 [facility] Comment on above: Performed By: #### L AB322, [id number] ####Cloth Grader: PING TOWNSEND ([phone])[facility] ([facility])[address] [place] [address] NEUTROPHILS ABSOLUTE 6.8 10*3/uL Normal 1.8-7.5 [facility] Comment on above: Performed By: #### L AB322, [id number] ####Cloth Grader: PING TOWNSEND ([phone])[facility] ([facility])[address] [place] [address] [place] Neutrophils/100 WBC (Bld) 82.1 % High 38.0-82.0 [facility] Comment on above: Performed By: #### Abiodun AB322, [id number] ####Cloth Grader: PING TOWNSEND ([phone])[facility] ([facility])[address] [place] [address] [place] NRBC 0.0 /100 WBCs Normal 0.0-2.0 [facility] Comment on above: Performed By: #### Abiodun AB322, [id number] ####Cloth Grader: PING TOWNSEND ([id number])[facility] ([facility])[address] [place] [address] [place] Platelet mean volume (Bld) [Entitic vol] 10.1 fL Normal 9.0-12.7 [facility] Comment on above: Performed By: #### Abiodun [id number], [id number] ####Cloth Grader: PING TOWNSEND ([phone])[facility] ([facility])[address] [place] [address] [place] Platelets (Bld) [#/Vol] 149 10*3/uL Normal 140-440 [facility] Comment on above: Performed By: #### Abiodun AB322, [id number] ####Cloth Grader: PING TOWNSEND ([phone])[facility] ([facility])[address] [place] [address] [place] RBC (Bld) [#/Vol] 4.20 10*6/uL Normal 3.80-5.20 [facility] Comment on above: Performed By: #### L AB322, [id number] ####Cloth Grader: PING TOWNSEND ([phone])[facility] ([facility])[address] [place] [address] [place] WBC (Bld) [#/Vol] 8.3 10*3/uL Normal 3.6-10.7 [facility] Comment on above: Performed By: #### L AB322, [id number] ####Cloth Grader: PING TOWNSEND ([phone])[facility] ZEPEDA ([facility])[address] [place] [address] ED Nursing Noteon 12-15-2023 ED Nursing Note Patient to room 7 vi a [facility] for c/o a left foot ulcer, lower leg erythema, and a headache. Patient reports she has had her foot ulcer for a couple of months. V/S obtained, call light within reach. Normal [facility] ED Provider Noteon ED Provider Note EMERGENCY DEPARTMENT ENCOUNTER Pt Name: Randolph Hutner Birthdate 1950 Date of evaluation: 12/15/2023 ED Provider: Gloria Bangura DO CHIEF COMPLAINT Chief Complaint Patient presents with Skin Ulcer Headache HISTORY OF PRESENT ILLNESS (Location/Symptom, Timing/Onset, Context/Setting, Quality, Duration, Modifying Factors, Severity) Note limiting factors. I wore appropriate PPE for the entirety of this encounter. HPI 73-year-old female presents emergency department today from her nursing facility for cellulitis of the left lower leg. She states they are already aware of her foot ulcer and she sees a doctor regarding this. She states she is on nurse practitioner today at her facility who sent her in to the emergency department because of the cellulitis. She is also reporting increased weakness and fatigue. Nursing Notes were reviewed. Limitations to history: None Outside historians: None REVIEW OF SYSTEMS Review of Systems Skin: Positive for wound. Pertinent positives and negatives as per HPI. PAST MEDICAL HISTORY Past Medical History: Diagnosis Date Anemia of chronic disease Asthma B12 deficiency Brachial neuritis CAD (coronary artery disease) Cerebral palsy (HCC) Depression Diabetes (HCC) Fatty liver Frequent falls HLD (hyperlipidemia) Hyperparathyroidism (HCC) Lupus (CMS/HCC) (HCC) Migraine headache with aura Neuropathy Obesity Pulmonary emboli (HCC) Pulmonary embolism (HCC) Systemic lupus erythematosus (CMS/HCC) (HCC) Type 2 diabetes mellitus (HCC) SURGICAL HISTORY Past Surgical History: Procedure Laterality Date TOTAL KNEE ARTHROPLASTY Right CURRENT MEDICATIONS Previous Medications ASPIRIN 81 MG EC TABLET Take 81 mg by mouth daily. BUPROPION SR (WELLBUTRIN SR) 150 MG 12 HR TABLET Take 150 mg by mouth daily. ESCITALOPRAM (LEXAPRO) 10 MG TABLET Take 10 mg by mouth in the morning. ESCITALOPRAM (LEXAPRO) 5 MG TABLET take 1 tablet by mouth once daily with 10 milligram to EQUAL 15MG FOR ANXIETY FLUTICASONE (FLONASE) 50 MCG/ACT NASAL SPRAY Administer 1 spray into each nostril daily. FOLIC ACID (FOLVITE) 1 MG TABLET Take 1 tablet by mouth daily. GABAPENTIN (NEURONTIN) 300 MG CAPSULE 1 tablet Orally three ti,es a day HYDROCODONE-ACETAMINOPHEN (NORCO) 5-325 MG TABLET Take 1 tablet by mouth every 6 hours as needed. HYDROXYCHLOROQUINE (PLAQUENIL) 200 MG TABLET Take 1 tablet by mouth in the morning and 1 tablet in the evening. LEVOTHYROXINE (SYNTHROID, LEVOXYL) 150 MCG TABLET Take 150 mcg by mouth daily. MAGNESIUM OXIDE 500 MG TABLET Take by mouth. METFORMIN (GLUCOPHAGE) 500 MG TABLET Take 500 mg by mouth in the morning and 500 mg in the evening. Take with meals. METOPROLOL SUCCINATE XL (TOPROL-XL) 100 MG 24 HR TABLET Take 100 mg by mouth daily at bedtime. NITROGLYCERIN (NITROSTAT) 0.[address] under the tongue. PRAZOSIN (MINIPRESS) 1 MG CAPSULE RAMIPRIL (ALTACE) 5 MG CAPSULE Take 1 capsule by mouth Every 24 hours. TRAZODONE (DESYREL) 50 MG TABLET Take 50 mg by mouth every evening. WARFARIN (COUMADIN) 5 MG TABLET Take 1 tablet by mouth daily. ALLERGIES Promethazine-phenylephrine, 5-alpha reductase inhibitors, Ciprofloxacin, E-mycin [erythromycin], Keflex [cephalexin], Naproxen, Paxil [paroxetine], Penicillins, Phenergan [promethazine], and Statins FAMILY HISTORY No family history on file. SOCIAL HISTORY Social History Socioeconomic History Marital status: Tobacco Use Smoking status: Never Smokeless tobacco: Never Vaping Use Vaping status: Never Used Substance and Sexual Activity Alcohol use: Yes Drug use: Never Social History Narrative Merged History Encounter Social Determinants of Health Financial Resource Strain: Low Risk (01/02/2020) [facility] Overall Financial Resource Strain (CARDIA) Difficulty of Paying Living Expenses: Not very hard Food Insecurity: Food Insecurity Present (01/02/2020) Received from [facility] Hunger Vital Sign Worried About Running Out of Food in the Last Year: Sometimes true Ran Out of Food in the Last Year: Never true Transportation Needs: Unmet Transportation Needs (01/02/2020) Received from [facility] PRAPARE - Transportation Lack of Transportation (Medical): Yes Lack of Transportation (Non-Medical): Yes Physical Activity: Inactive (01/02/2020) Received from [facility] Exercise Vital Sign Days of Exercise per Week: 0 days Minutes of Exercise per Session: 0 min Stress: Stress Concern Present (01/02/2020) Received from [facility] [employer] [place] [facility] [employer] - Occupational Stress Questionnaire Feeling of Stress : Rather much Social Connections: Moderately Isolated (01/02/2020) Received from [facility] Social Connection and Isolatio (more content not included)... Normal [facility] ED Provider Note This patient was sig ruthie out to me by the previous provider. Please see their note for further HPI and patient care. In summary this is a 73-year-old female who presented the emergency department today for wound check. Previous provider had done labs and given her dose of IV vancomycin for concern for cellulitis and also ordered an x-ray she had a ulcer to her toe and wanted to rule out osteomyelitis. Signed out to me pending labs and disposition. I reviewed the patient's labs and she has no significant white count. Her ESR is within normal limits. Her CRP is only mildly elevated. She has no signs or symptoms concerning for sepsis. X-ray of her foot does not show any acute findings that are concerning for osteomyelitis. Given this I did feel that she would be safe to trial oral antibiotics. I had a discussion with the patient about putting in her observation unit at [facility] for 24 hours of IV antibiotics versus discharging home with oral antibiotics. After shared decision-making she elected to go home. I do think that this is a safe plan. She lives in assisted living and they can help her with continuing to monitor her wound. Gave her strict return precautions and discharged in stable condition. Karen Gallardo MD 12/15/231935 Normal [facility] ESR (Bld) [Velocity]Ordered By: Lexi Arce on 12-15-2023 Interpretation and review of laboratory results Normal [facility] Laboratory - Chemistry and C hemistry - challengeon 12-15-2023 CRP [Mass/Vol] 57.4 mg/L High NINF - 10.0 mg/L [facility] - Hematology and Cell countsOrdered By: Lexi Arce on 12-15-2023 ESR (Bld) [Velocity] 16 mm/h [facility] No Panel Informationon 12-14 Interpretation and review of laboratory results Abnormal [facility] SEDIMENTATION RATE, AUTOMATE Don 12-15-2023 SEDIMENTATION RATE, ERYTHROCYTE 16 mm/hr Normal 0-20 [facility] Comment on above: Performed By: #### L [id number], [id number] ####Cloth Grader: PING TOWNSEND ([phone])[facility] ([facility])[address] [place] [address] XR Foot - left 3 Viewson No obvious acute osteomyelitis. Report Dictated on Electronically Signed By: Gloria Darnell MD Electronically Signed Date/Time: 12/15/2023 7:01 PM EDT [facility] RADIOLOGY SYSTEM Patient Name: RANDOLPH HUNTER : 1950 Exam Date/Time: 12/15/2023 18:59 Procedure: XR FOOT 3+ VIEWS LEFT Ordering Provider: BANGURA BRIGID Reason For Exam: evaluation for osteomyelitis; ulcer on base of foot EXAMINATION: Left foot three views INDICATION: evaluation for osteomyelitis; ulcer on base of foot FINDINGS: No acute fracture or dislocation is demonstrated. Degenerative changes of multiple IP joints present with hammertoe deformity of multiple digits. Soft tissue swelling of the forefoot. Diffuse vascular calcification present. [facility] Gloria Darnell MD - 12/15/2023 Patient Name: RANDOLPH HUNTER : 1950 Exam Date/Time: 12/15/2023 18:59 Procedure: XR FOOT 3+ VIEWS LEFT Ordering Provider: BANGURA BRIGID Reason For Exam: evaluation for osteomyelitis; ulcer on base of foot EXAMINATION: Left foot three views INDICATION: evaluation for osteomyelitis; ulcer on base of foot FINDINGS: No acute fracture or dislocation is demonstrated. Degenerative changes of multiple IP joints present with hammertoe deformity of multiple digits. Soft tissue swelling of the forefoot. Diffuse vascular calcification present. IMPRESSION: No obvious acute osteomyelitis. Report Dictated on Electronically Signed By: Gloria Darnell MD Electronically Signed Date/Time: 12/15/2023 7:01 PM EDT [employer] Radiology Study observation (narrative) [employer] XR Foot - left 3 ViewsOrdere d By: Gloria Darnell on 12-15-2023 [employer] Work Phone: CNOVon 11-27-2023 CNOV Office Visit (PSYLWM ) RANDOLPH HUNTER ([id number]) 1950 F Date Time Provider Department 11/27/23 11:00 AM GILMER COTTON PSYLWM During your visit today, we recorded the following information about you: Gilmer Cotton, PhD 11/27/2023 12:09 PM Signed [facility] Progress Note Randolph Hunter 11/27/2023 [id number] PROVIDER: Gilmer Cotton, PhD CPT Code: Time: 50 minutes Setting: Patient seen in person Parties Present: Patient Treatment Modality/Interventions: Cognitive Behavioral Reassurance/Supportive Insight oriented Processing of emotions MENTAL STATUS: Mood: variable, anxious Affect: mood-congruent Thoughts/Associations:goal directed Suicidal/Homicidal Ideation: None expressed or evidenced Other Prominent Symptoms: Therapy Focus/Content of Session: Self-care, Stress management, Mood/affect regulation, and Self-esteem Daughter Khadra ... caught w meth and gave the hospital and police a run for their money... hallucinating hx of poly substance abuse... now in locked tx in [place] struggles to get things up to speed w new mgmt but things seem to be heading in the right direction but slowly her blood thinner seems a bit off and some bleeding PLAN: working w the nurses to get it under control MEDICATIONS: Per medical record: Current Outpatient Medications Medication Sig albuterol (PROVENTIL) 2.5 mg /3 mL (0.083 %) nebulizer solution 3 mL as needed Inhalation every 6 hrs furosemide (LASIX) 80 mg tablet Take 1 tablet by mouth once daily. hydrOXYchloroQUINE (PLAQUENIL) 200 mg tablet mupirocin (BACTROBAN) 2 % ointment Apply to affected area once daily. APPLY TO AFFECTED AREA prazosin (MINIPRESS) 1 mg cap folic acid 1 mg tablet Take 1 tablet by mouth every afternoon. nitrofurantoin monohydrate and macrocrystal (MACROBID) 100 mg capsule escitalopram oxalate (LEXAPRO) 10 mg tablet Take 10 mg by mouth once daily. escitalopram oxalate (LEXAPRO) 5 mg tablet take 1 tablet by mouth once daily with 10 milligram to EQUAL 15MG FOR ANXIETY Nystatin, Bulk, 10 billion unit powd Apply to affected area. traZODone (DESYREL) 50 mg tablet Take 50 mg by mouth every evening. buPROPion XL (WELLBUTRIN XL) 300 mg 24 hr tablet 300 mg once daily. metFORMIN ER (GLUCOPHAGE XR) 500 mg 24 hr tablet Take 500 mg by mouth twice daily. levothyroxine (SYNTHROID) 150 mcg tablet Take 1 tablet by mouth once daily. Take on empty stomach. For thyroid HYDROcodone-acetaminophen (NORCO) 5-325 mg per tablet Take 1 tablet by mouth every 6 hours as needed for pain for up to 30 days. warfarin (COUMADIN) 5 mg tablet 7.5 mg Mon/Fri, 5 mg all other days or as directed mirtazapine (REMERON) 30 mg tablet Take 1 tablet by mouth daily at bedtime. (Patient not taking: No sig reported) gabapentin (NEURONTIN) 600 mg tablet Take 1 tablet by mouth three times daily for 180 days. cyanocobalamin 1,000 mcg/mL Inject 1 mL intramuscularly once every month. nitroglycerin sublingual (NITROQUICK) 0.4 mg SL tablet Dissolve 1 tablet under the tongue every 5 minutes as needed for chest pain. FOR CHEST PAIN. IF NO RELIEF CALL 911 ramipril (ALTACE) 5 mg capsule Take 1 capsule by mouth once daily. metoprolol succinate ER (TOPROL XL) 100 mg Take 1 tablet by mouth once daily. Syringe with Needle, Disp, (MONOJECT TB SAFETY SYRINGE) 1 mL 25 gauge x 5/8" Use as directed once a month. blood sugar diagnostic ([employer] VERIO TEST STRIPS) test strip Test blood sugar(s) 3 times daily. Dx: Other DM Code E11.42 Insulin: Yes ketoconazole (NIZORAL) 2 % cream Apply 1 application to affected area once daily. Syringe with Needle, Safety 3 mL 23 gauge x 1" 1 Each as directed. Use one each with Vitamin B 12 injections weekly for 3 doses and then monthly. fluticasone (FLONASE) 50 mcg/actuation nasal spray Use 2 Sprays in each nostril once daily. Rinse mouth after use. Magnesium Oxide 500 mg tab Take 500 mg by mouth once daily. Cholecalciferol, Vitamin D3, 50 mcg (2,000 unit) cap Take 1 capsule by mouth once daily. calcium carbonate/vitamin D2 (CALCIUM 600 WITH VITAMIN D ORAL) Take 1 tablet by mouth once daily. melatonin 10 mg tab Take 1 tablet by mouth daily at bedtime. aspirin, enteric coated (ASPIR-LOW) 81 mg EC tablet Take 1 tablet by mouth once daily. MULTIVITAMIN ORAL Take by mouth. OTC One A Day [employer] gui Incentive spirometer. Deep breathe hourly while awake. PT/INR test meter (COAGUCHEK XS PRO) misc Check Protime weekly. Dx: pulmonary embolism, V58.61 COMPOUNDED PRESCRIPTION Hospital bed all electric with adjustable head and feet. 415.19; 343.8; 782.3; 787.91; V43.65 No current facility-administered medications for this visit. Psychiatric Medication Issues: see med record DIAGNOSIS: [place] I: Depressive Disorder recurrent Morbidly Obese CP Hewett (more content not included)... Normal [facility] ED Nursing Noteon 07-20-2023 ED Nursing Note Physician's arrived; pt removed from urine collection device and pts own attends placed on pt per her request. Pts belongings in bag at bedside. Report to Physician's. Veronika Bae RN 07/20/23 0844 [facility] ED Nursing Note Physician's Ambulanc e arrived with an ambulette/wheelchair van. Chasidy MCCRACKEN spoke with Physician's to inform them that the pt is non ambulatory and needed a stretcher. Physician's states they will have a stretcher here "within the hour." Veronika Bae RN 07/20/23 0717 [facility] ED Nursing Note Patient pressed call light to request pain medication. States pain is in shoulders and down the back from laying on the tables. notified Gifty Cornell RN 07/20/23 0044 [facility] [address] CERVICAL SPINE WO IV CONT Teresa 07-19-2023 CT CERVICAL SPINE WO IV CONTRAST Patient Name: RANDOLPH HUNTER : 1950 Exam Date/Time: 07/19/2023 22:56 Procedure: CT CERVICAL SPINE WO IV CONTRAST Ordering Provider: ANNA DOUGLAS Reason For Exam: cervical spine pain after fall. fails gabonese CT CERVICAL SPINE: CLINICAL INDICATION: cervical spine pain after fall. fails [employer] TECHNIQUE: Transaxial sequence through the cervical spine. Coronal and sagittal reconstructions included. Dose reduction was employed with automated exposure control. COMPARISON: CT cervical spine from 09/06/2022 FINDINGS: Cervical vertebrae, disc spaces and joints: Mild degenerative change at the atlantodental articulation. Multilevel posterior facet joint arthropathy. No acute focal subluxation. Degenerative endplate changes and disc space narrowing, most pronounced at C5-C6. No acute fracture.. Mild levocurvature of the lower cervical/upper thoracic spine, which may be positional. No worrisome bone lesion identified. Spinal canal: Dorsal disc osteophyte complexes result in multilevel mild spinal canal stenosis. There is moderate spinal canal stenosis at C5-C6. Multilevel bilateral neural foraminal narrowing. Soft tissues: Atherosclerotic vascular calcifications. Hypoplasia or atrophy of the right submandibular gland. Other: Lung apices are unremarkable. IMPRESSION: No acute cervical spine fracture. Multilevel cervical spondylosis. Report Dictated on Electronically Signed By: Albina Newton MD Electronically Signed Date/Time: 07/19/2023 11:18 PM EST [facility] CT Cervical spine WO contras ton 07-19-2023 No acute cervical sp ine fracture. Multilevel cervical spondylosis. Report Dictated on Electronically Signed By: Albina Newton MD Electronically Signed Date/Time: 07/19/2023 11:18 PM EST [facility] Patient Name: RANDOLPH HUNTER : 1950 Exam Date/Time: 07/19/2023 22:56 Procedure: CT CERVICAL SPINE WO IV CONTRAST Ordering Provider: ANNA DOUGLAS Reason For Exam: cervical spine pain after fall. fails gabonese CT CERVICAL SPINE: CLINICAL INDICATION: cervical spine pain after fall. fails gabonese TECHNIQUE: Transaxial sequence through the cervical spine. Coronal and sagittal reconstructions included. Dose reduction was employed with automated exposure control. COMPARISON: CT cervical spine from 09/06/2022 FINDINGS: Cervical vertebrae, disc spaces and joints: Mild degenerative change at the atlantodental articulation. Multilevel posterior facet joint arthropathy. No acute focal subluxation. Degenerative endplate changes and disc space narrowing, most pronounced at C5-C6. No acute fracture.. Mild levocurvature of the lower cervical/upper thoracic spine, which may be positional. No worrisome bone lesion identified. Spinal canal: Dorsal disc osteophyte complexes result in multilevel mild spinal canal stenosis. There is moderate spinal canal stenosis at C5-C6. Multilevel bilateral neural foraminal narrowing. Soft tissues: Atherosclerotic vascular calcifications. Hypoplasia or atrophy of the right submandibular gland. Other: Lung apices are unremarkable. [facility] Albina Newton M D - 07/19/2023 Patient Name: RANDOLPH HUNTER : 1950 Exam Date/Time: 07/19/2023 22:56 Procedure: CT CERVICAL SPINE WO IV CONTRAST Ordering Provider: ANNA DOUGLAS Reason For Exam: cervical spine pain after fall. fails gabonese CT CERVICAL SPINE: CLINICAL INDICATION: cervical spine pain after fall. fails g[place] TECHNIQUE: Transaxial sequence through the cervical spine. Coronal and sagittal reconstructions included. Dose reduction was employed with automated exposure control. COMPARISON: CT cervical spine from 09/06/2022 FINDINGS: Cervical vertebrae, disc spaces and joints: Mild degenerative change at the atlantodental articulation. Multilevel posterior facet joint arthropathy. No acute focal subluxation. Degenerative endplate changes and disc space narrowing, most pronounced at C5-C6. No acute fracture.. Mild levocurvature of the lower cervical/upper thoracic spine, which may be positional. No worrisome bone lesion identified. Spinal canal: Dorsal disc osteophyte complexes result in multilevel mild spinal canal stenosis. There is moderate spinal canal stenosis at C5-C6. Multilevel bilateral neural foraminal narrowing. Soft tissues: Atherosclerotic vascular calcifications. Hypoplasia or atrophy of the right submandibular gland. Other: Lung apices are unremarkable. IMPRESSION: No acute cervical spine fracture. Multilevel cervical spondylosis. Report Dictated on Electronically Signed By: Albina Newton MD Electronically Signed Date/Time: 07/19/2023 11:18 PM EST [facility] [employer] Radiology [facility]narrative[facility] WO contras tOrdered By: Albina Newton on 07-19-2023 [employer] Work Phone: CT HEAD WO IV CONTRASTon CT HEAD WO IV CONTRAST [facility] 1950 [id number] Exam Date/Time: 07/19/2023 22:58 Procedure: CT HEAD WO IV CONTRAST Ordering Provider: ANNA DOUGLAS Reason For Exam: fall, on coumadin. no obvious headstrike CT HEAD: CLINICAL INDICATION: fall, on coumadin. no obvious headstrike TECHNIQUE: Transaxial CT sequence performed through the head with 3 mm reconstruction. Sagittal and Coronal reconstruction images included. Dose reduction was employed with automated exposure control. COMPARISON: CT head from 09/06/2022 FINDINGS: Cerebral and cerebellar parenchyma: Mild diffuse cortical volume loss. Remote lacunar infarcts versus prominent perivascular spaces in the bilateral inferior basal ganglia. No acute intraparenchymal hemorrhage. No midline shift. Ventricles and Extra-axial spaces: Normal in size and morphology for the patient's age. No abnormal extracerebral collection identified. Visualized Paranasal sinuses: Normal. Mastoid air cells: Normal. Visualized Orbits: Normal Calvarium and skull base: Normal IMPRESSION: No acute intracranial abnormality. Mild diffuse cortical volume loss. Report Dictated on Electronically Signed By: Albina Newton MD Electronically Signed Date/Time: 07/19/2023 11:02 PM EST [facility] CT Head WO contraston 2023 No acute intracrania l abnormality. Mild diffuse cortical volume loss. Report Dictated on Electronically Signed By: Albina Newton MD Electronically Signed Date/Time: 07/19/2023 11:02 PM EST [facility] Patient Name: RANDOLPH HUNTER : 1950 Exam Date/Time: 07/19/2023 22:58 Procedure: CT HEAD WO IV CONTRAST Ordering Provider: ANNA DOUGLAS Reason For Exam: fall, on coumadin. no obvious headstrike CT HEAD: CLINICAL INDICATION: fall, on coumadin. no obvious headstrike TECHNIQUE: Transaxial CT sequence performed through the head with 3 mm reconstruction. Sagittal and Coronal reconstruction images included. Dose reduction was employed with automated exposure control. COMPARISON: CT head from 09/06/2022 FINDINGS: Cerebral and cerebellar parenchyma: Mild diffuse cortical volume loss. Remote lacunar infarcts versus prominent perivascular spaces in the bilateral inferior basal ganglia. No acute intraparenchymal hemorrhage. No midline shift. Ventricles and Extra-axial spaces: Normal in size and morphology for the patient's age. No abnormal extracerebral collection identified. Visualized Paranasal sinuses: Normal. Mastoid air cells: Normal. Visualized Orbits: Normal Calvarium and skull base: Normal [facility] Albina Newton M D - 07/19/2023 Patient Name: RANDOLPH HUNTER : 1950 Exam Date/Time: 07/19/2023 22:58 Procedure: CT HEAD WO IV CONTRAST Ordering Provider: ANNA DOUGLAS Reason For Exam: fall, on coumadin. no obvious headstrike CT HEAD: CLINICAL INDICATION: fall, on coumadin. no obvious headstrike TECHNIQUE: Transaxial CT sequence performed through the head with 3 mm reconstruction. Sagittal and Coronal reconstruction images included. Dose reduction was employed with automated exposure control. COMPARISON: CT head from 09/06/2022 FINDINGS: Cerebral and cerebellar parenchyma: Mild diffuse cortical volume loss. Remote lacunar infarcts versus prominent perivascular spaces in the bilateral inferior basal ganglia. No acute intraparenchymal hemorrhage. No midline shift. Ventricles and Extra-axial spaces: Normal in size and morphology for the patient's age. No abnormal extracerebral collection identified. Visualized Paranasal sinuses: Normal. Mastoid air cells: Normal. Visualized Orbits: Normal Calvarium and skull base: Normal IMPRESSION: No acute intracranial abnormality. Mild diffuse cortical volume loss. Report Dictated on Electronically Signed By: Albina Newton MD Electronically Signed Date/Time: 07/19/2023 11:02 PM EST [employer] Radiology Study observation (narrative) [employer] CT Head WO contrastOrdered B y: Albina Newton on 07-19-2023 [employer] Work Phone: CT PELVIS WO IV CONTRASTon 0 07-19-2023 CT PELVIS WO IV CONTRAST Patient Name: RANDOLPH HUNTER : 1950 Exam Date/Time: 07/19/2023 22:57 Procedure: CT PELVIS WO IV CONTRAST Ordering Provider: ANNA DOUGLAS Reason For Exam: fall, landed on right hip. fracture? CT PELVIS WITHOUT CONTRAST CLINICAL INDICATION: fall, landed on right hip. fracture? TECHNIQUE: Transaxial through the pelvis without contrast media. Coronal and sagittal reconstructions were reviewed. Dose reduction was employed with automated exposure control. COMPARISON: Pelvic radiograph from 09/06/2022 FINDINGS: Multilevel posterior facet joint arthropathy, most advanced on the right at L4-L5 and L5-S1. Mild degenerative endplate changes. Mild bilateral sacroiliac joint DJD. Chronic appearing coccygeal deformity. Mild degenerative change of the pubic symphysis. Mild bilateral hip joint DJD. No acute fracture. No dislocation.. Atherosclerotic vascular calcifications. Metallic clips in the right inguinal region. Status post hysterectomy. Colonic diverticulosis. Small fat-containing left inguinal hernia. Mild pelvic floor prolapse, involving the posterior compartment of the pelvis. Bilateral gluteal muscle atrophy. Diastases of the rectus abdominis muscles. No sizable hematoma in the soft tissues. IMPRESSION: No acute fracture. Nonacute findings, as above. Report Dictated on Electronically Signed By: Albina Newton MD Electronically Signed Date/Time: 07/19/2023 11:27 PM EST [facility] CT Pelvis WO contraston 06-23 No acute fracture. Nonacute findings, as above. Report Dictated on Electronically Signed By: Albina Newton MD Electronically Signed Date/Time: 07/19/2023 11:27 PM [facility] [employer] [facility] Patient Name: RANDOLPH HUNTER : 1950 Exam Date/Time: 07/19/2023 22:57 Procedure: CT PELVIS WO IV CONTRAST Ordering Provider: ANNA DOUGLAS Reason For Exam: fall, landed on right hip. fracture? CT PELVIS WITHOUT CONTRAST CLINICAL INDICATION: fall, landed on right hip. fracture? TECHNIQUE: Transaxial through the pelvis without contrast media. Coronal and sagittal reconstructions were reviewed. Dose reduction was employed with automated exposure control. COMPARISON: Pelvic radiograph from 09/06/2022 FINDINGS: Multilevel posterior facet joint arthropathy, most advanced on the right at L4-L5 and L5-S1. Mild degenerative endplate changes. Mild bilateral sacroiliac joint DJD. Chronic appearing coccygeal deformity. Mild degenerative change of the pubic symphysis. Mild bilateral hip joint DJD. No acute fracture. No dislocation.. Atherosclerotic vascular calcifications. Metallic clips in the right inguinal region. Status post hysterectomy. Colonic diverticulosis. Small fat-containing left inguinal hernia. Mild pelvic floor prolapse, involving the posterior compartment of the pelvis. Bilateral gluteal muscle atrophy. Diastases of the rectus abdominis muscles. No sizable hematoma in the soft tissues. [facility] [employer] Albina Newton M D - 07/19/2023 Patient Name: RANDOLPH HUNTER : 1950 Exam Date/Time: 07/19/2023 22:57 Procedure: CT PELVIS WO IV CONTRAST Ordering Provider: ANNA DOUGLAS Reason For Exam: fall, landed on right hip. fracture? CT PELVIS WITHOUT CONTRAST CLINICAL INDICATION: fall, landed on right hip. fracture? TECHNIQUE: Transaxial through the pelvis without contrast media. Coronal and sagittal reconstructions were reviewed. Dose reduction was employed with automated exposure control. COMPARISON: Pelvic radiograph from 09/06/2022 FINDINGS: Multilevel posterior facet joint arthropathy, most advanced on the right at L4-L5 and L5-S1. Mild degenerative endplate changes. Mild bilateral sacroiliac joint DJD. Chronic appearing coccygeal deformity. Mild degenerative change of the pubic symphysis. Mild bilateral hip joint DJD. No acute fracture. No dislocation.. Atherosclerotic vascular calcifications. Metallic clips in the right inguinal region. Status post hysterectomy. Colonic diverticulosis. Small fat-containing left inguinal hernia. Mild pelvic floor prolapse, involving the posterior compartment of the pelvis. Bilateral gluteal muscle atrophy. Diastases of the rectus abdominis muscles. No sizable hematoma in the soft tissues. IMPRESSION: No acute fracture. Nonacute findings, as above. Report Dictated on Electronically Signed By: Albina Newton MD Electronically Signed Date/Time: 07/19/2023 11:27 PM EST [facility] Radiology Study observation (narrative) [facility] CT Pelvis WO contrastOrdered By: Albina Newton on 07-19-2023 [facility] [employer] Work Phone: ED Nursing Noteon 07-19-2023 ED Nursing Note Report given to Shubham lopes RN & Chasidy RN. Patient still in radiology. Pia Caraballo RN 07/19/23 0015 [facility] ED Nursing Note Dispo per imaging :) Chasidy Fernandez RN 07/19/23 8192 [facility] ED Nursing Note Pt placed up for dis charge. No discharge paperwork complete at this time. Once orders are complete and discharge paperwork complete by ER DR Pt will be discharged. Chasidy Fernandez RN 07/19/23 4030 [facility] ED Nursing Note This RN requested or ders from ER DR. Chasidy Fernandez RN 07/19/232025 [facility] ED Nursing Note Patient is here for right hip pain. She was transferring to the toilet when she fell. She resides at [address] She currently is working with a physical therapist and is in a wheelchair. Patient hooked up to [employer] due to incontinence. She also has right knee bruising that is from her repeatedly hitting it on her wheelchair. She denies hitting her head or neck during fall. She is on coumadin. Call light within reach. [facility] ED Provider Noteon ED Provider Note EMERGENCY DEPARTMENT ENCOUNTER Pt Name: Randolph Hunter Birthdate 1950 Date of evaluation: 07/19/2023 ED Provider: Cuba Anna MD CHIEF COMPLAINT Chief Complaint Patient presents with Hip Pain Right Fall HISTORY OF PRESENT ILLNESS (Location/Symptom, Timing/Onset, Context/Setting, Quality, Duration, Modifying Factors, Severity) Note limiting factors. I wore appropriate PPE for the entirety of this encounter. HPI Randolph Hunter is a 72 y.o. who presents to the emergency department with a mechanical fall The patient has frequent falls, she is wheelchair-bound. She has a right-sided total knee replacement. Does not smoke does not drink. No family history. She lives in a prison facility and is on Coumadin as she has a history of lupus and coronary artery disease. She was with physical therapy in her wheelchair today when she was trying to transfer from the chair to a toilet and slipped and fell. This happened twice today. She has multiple bruises on the right knee which she says are not actually from the falls, but from the fact that she is in her wheelchair and often bangs her right knee (and sometimes her left knee) into nearby tables and chairs. She complains of pain in the right hip. She still has good range of motion of the right hip but she says it is sore. She also has neck pain. She is pretty certain that she did not actually hit her neck when she fell, she thinks that when people went to pick her up off the ground (at baseline she cannot get herself off the ground), they may have "wrenched my neck" in the process. Denies any focal numbness or focal weakness in the arms or legs. No chest pain no palpitations no shortness of breath no abdominal pain no syncope no presyncope. There is no objective craniofacial trauma. There is no altered mental status, patient remembers the entire event, she is able to answer questions follow commands laughing and joking despite her circumstances, jovial Nursing Notes were reviewed. Limitations to history: None Outside historians: None REVIEW OF SYSTEMS Review of Systems Pertinent positives and negatives as per HPI PAST MEDICAL HISTORY Past Medical History: Diagnosis Date Anemia of chronic disease Asthma B12 deficiency Brachial neuritis CAD (coronary artery disease) Cerebral palsy (HCC) Depression Diabetes (HCC) Fatty liver Frequent falls HLD (hyperlipidemia) Hyperparathyroidism (HCC) Lupus (CMS/HCC) (HCC) Migraine headache with aura Neuropathy Obesity Pulmonary emboli (HCC) Pulmonary embolism (HCC) Systemic lupus erythematosus (CMS/HCC) (HCC) Type 2 diabetes mellitus (HCC) SURGICAL HISTORY Past Surgical History: Procedure Laterality Date TOTAL KNEE ARTHROPLASTY Right CURRENT MEDICATIONS Previous Medications ASPIRIN 81 MG EC TABLET Take 81 mg by mouth daily. BUPROPION SR (WELLBUTRIN SR) 150 MG 12 HR TABLET Take 150 mg by mouth daily. ESCITALOPRAM (LEXAPRO) 10 MG TABLET Take 10 mg by mouth in the morning. ESCITALOPRAM (LEXAPRO) 5 MG TABLET take 1 tablet by mouth once daily with 10 milligram to EQUAL 15MG FOR ANXIETY FLUTICASONE (FLONASE) 50 MCG/ACT NASAL SPRAY Administer 1 spray into each nostril daily. FOLIC ACID (FOLVITE) 1 MG TABLET Take 1 tablet by mouth daily. GABAPENTIN (NEURONTIN) 300 MG CAPSULE 1 tablet Orally three ti,es a day HYDROCODONE-ACETAMINOPHEN (NORCO) 5-325 MG TABLET Take 1 tablet by mouth every 6 hours as needed. HYDROXYCHLOROQUINE (PLAQUENIL) 200 MG TABLET Take 1 tablet by mouth in the morning and 1 tablet in the evening. LEVOTHYROXINE (SYNTHROID, LEVOXYL) 150 MCG TABLET Take 150 mcg by mouth daily. MAGNESIUM OXIDE 500 MG TABLET Take by mouth. METFORMIN (GLUCOPHAGE) 500 MG TABLET Take 500 mg by mouth in the morning and 500 mg in the evening. Take with meals. METOPROLOL SUCCINATE XL (TOPROL-XL) 100 MG 24 HR TABLET Take 100 mg by mouth daily at bedtime. NITROGLYCERIN (NITROSTAT) 0.[address] under the tongue. PRAZOSIN (MINIPRESS) 1 MG CAPSULE RAMIPRIL (ALTACE) 5 MG CAPSULE Take 1 capsule by mouth Every 24 hours. TRAZODONE (DESYREL) 50 MG TABLET Take 50 mg by mouth every evening. WARFARIN (COUMADIN) 5 MG TABLET Take 1 tablet by mouth daily. ALLERGIES 5-alpha reductase inhibitors, Ciprofloxacin, E-mycin [erythromycin], Keflex [cephalexin], Naproxen, Paxil [paroxetine], Phenergan [promethazine], and Statins FAMILY HISTORY No family history on file. SOCIAL HISTORY Social History Socioeconomic History Marital status: Tobacco Use Smoking status: Never Smokeless tobacco: Never Vaping Use Vaping Use: Never used Substance and Sexual Activity Alcohol use: Yes Drug use: Never Social History Narrative Merged History Encounter SCREENINGS PHYSICAL EXAM ED Triage Vitals [07/19/23 1850] Temp Heart Rate Resp BP 36.7 ?C (98 ?F) 71 18 134/60 SpO2 Temp Source Heart Rate Source Patient (more content not included)... [facility] No Panel Informationon 07-19 1. Right knee arthro plasty in adequate alignment 2. Unremarkable right hip 3. Osteoarthritis of the left knee Report Dictated on Electronically Signed By: Phan Sepulveda MD Electronically Signed Date/Time: 07/19/2023 11:53 PM [facility] No Panel InformationOrdered By: Phan Sepulveda on 07-19-2023 [employer] Work Phone: XR Femur - right 2 Viewson 0 07-19-2023 [facility] 1950 [id number] Exam Date/Time: 07/19/2023 23:49 Procedure: XR FEMUR 2+ VW RIGHT Ordering Provider: ANNA DOUGLAS Reason For Exam: right hip injury. fracture? BILATERAL KNEES AND RIGHT FEMUR: CLINICAL INDICATION: Pain. TECHNIQUE: Three views of each knee plus AP and lateral views of the right femur COMPARISON: None. FINDINGS: There is no fracture or subluxation identified on the submitted views. Right knee arthroplasty is noted in adequate alignment. No right joint effusion at the knee. Right hip joint is unremarkable. There are surgical clips in the right inguinal region with extensive arterial calcifications throughout the right thigh. There is lateral and patellofemoral joint space narrowing at the left knee. No left joint effusion is noted. Left knee demonstrates arterial calcifications as well as the popliteal fossa. [facility] Phan Sepulveda MD - 07/19/2023 Patient Name: RANDOLPH HUNTER : 1950 Exam Date/Time: 07/19/2023 23:49 Procedure: XR FEMUR 2+ VW RIGHT Ordering Provider: ANNA DOUGLAS Reason For Exam: right hip injury. fracture? BILATERAL KNEES AND RIGHT FEMUR: CLINICAL INDICATION: Pain. TECHNIQUE: Three views of each knee plus AP and lateral views of the right femur COMPARISON: None. FINDINGS: There is no fracture or subluxation identified on the submitted views. Right knee arthroplasty is noted in adequate alignment. No right joint effusion at the knee. Right hip joint is unremarkable. There are surgical clips in the right inguinal region with extensive arterial calcifications throughout the right thigh. There is lateral and patellofemoral joint space narrowing at the left knee. No left joint effusion is noted. Left knee demonstrates arterial calcifications as well as the popliteal fossa. IMPRESSION: 1. Right knee arthroplasty in adequate alignment 2. Unremarkable right hip 3. Osteoarthritis of the left knee Report Dictated on Electronically Signed By: Phan Sepulveda MD Electronically Signed Date/Time: 07/19/2023 11:53 PM EST [employer] Radiology Study observation (narrative) [employer] XR Knee - left 3 Viewson Patient Name: RANDOLPH HUNTER : 1950 Exam Date/Time: 07/19/2023 23:49 Procedure: XR KNEE 3 VIEWS LEFT Ordering Provider: ANNA DOUGLAS Reason For Exam: xray left knee - pain. frequent falls BILATERAL KNEES AND RIGHT FEMUR: CLINICAL INDICATION: Pain. TECHNIQUE: Three views of each knee plus AP and lateral views of the right femur COMPARISON: None. FINDINGS: There is no fracture or subluxation identified on the submitted views. Right knee arthroplasty is noted in adequate alignment. No right joint effusion at the knee. Right hip joint is unremarkable. There are surgical clips in the right inguinal region with extensive arterial calcifications throughout the right thigh. There is lateral and patellofemoral joint space narrowing at the left knee. No left joint effusion is noted. Left knee demonstrates arterial calcifications as well as the popliteal fossa. [facility] Phan Sepulveda MD - 07/19/2023 Patient Name: RANDOLPH HUNTER : 1950 Exam Date/Time: 07/19/2023 23:49 Procedure: XR KNEE 3 VIEWS LEFT Ordering Provider: ANNA DOUGLAS Reason For Exam: xray left knee - pain. frequent falls BILATERAL KNEES AND RIGHT FEMUR: CLINICAL INDICATION: Pain. TECHNIQUE: Three views of each knee plus AP and lateral views of the right femur COMPARISON: None. FINDINGS: There is no fracture or subluxation identified on the submitted views. Right knee arthroplasty is noted in adequate alignment. No right joint effusion at the knee. Right hip joint is unremarkable. There are surgical clips in the right inguinal region with extensive arterial calcifications throughout the right thigh. There is lateral and patellofemoral joint space narrowing at the left knee. No left joint effusion is noted. Left knee demonstrates arterial calcifications as well as the popliteal fossa. IMPRESSION: 1. Right knee arthroplasty in adequate alignment 2. Unremarkable right hip 3. Osteoarthritis of the left knee Report Dictated on Electronically Signed By: Phan Sepulveda MD Electronically Signed Date/Time: 07/19/2023 11:53 PM EST [facility] [employer] Radiology Study observation (narrative) [employer] XR Knee - right 3 Viewson Patient Name: RANDOLPH HUNTER : 1950 Exam Date/Time: 07/19/2023 23:49 Procedure: XR KNEE 3 VIEWS RIGHT Ordering Provider: ANNA DOUGLAS Reason For Exam: fell. h/o TKR. frequently bumps it into tables and chairs. bruised. fracture? BILATERAL KNEES AND RIGHT FEMUR: CLINICAL INDICATION: Pain. TECHNIQUE: Three views of each knee plus AP and lateral views of the right femur COMPARISON: None. FINDINGS: There is no fracture or subluxation identified on the submitted views. Right knee arthroplasty is noted in adequate alignment. No right joint effusion at the knee. Right hip joint is unremarkable. There are surgical clips in the right inguinal region with extensive arterial calcifications throughout the right thigh. There is lateral and patellofemoral joint space narrowing at the left knee. No left joint effusion is noted. Left knee demonstrates arterial calcifications as well as the popliteal fossa. [facility] Phan Sepulveda MD - 07/19/2023 [facility] Name: [facility]UN[facility] 1950 [id number] Exam Date/Time: 07/19/2023 23:49 Procedure: XR KNEE 3 VIEWS RIGHT Ordering Provider: ANNA DOUGLAS Reason For Exam: fell. h/o TKR. frequently bumps it into tables and chairs. bruised. fracture? BILATERAL KNEES AND RIGHT FEMUR: CLINICAL INDICATION: Pain. TECHNIQUE: Three views of each knee plus AP and lateral views of the right femur COMPARISON: None. FINDINGS: There is no fracture or subluxation identified on the submitted views. Right knee arthroplasty is noted in adequate alignment. No right joint effusion at the knee. Right hip joint is unremarkable. There are surgical clips in the right inguinal region with extensive arterial calcifications throughout the right thigh. There is lateral and patellofemoral joint space narrowing at the left knee. No left joint effusion is noted. Left knee demonstrates arterial calcifications as well as the popliteal fossa. IMPRESSION: 1. Right knee arthroplasty in adequate alignment 2. Unremarkable right hip 3. Osteoarthritis of the left knee Report Dictated on Electronically Signed By: Phan Sepulveda MD Electronically Signed Date/Time: 07/19/2023 11:53 PM EST [employer] Radiology Study observation (narrative) [employer] ECG 12-LEADon 09-07-2022 ECG 12-LEAD IMPRESSION: Sinus rhythm Borderline left axis deviation Probable lateral infarct, old Abnrm R prog, consider ASMI or lead placement Electronically Signed On 09-07-2022 11:08:52 EDT by Sai Melchor Normal [facility] ABO and Rh group Confirm Nom (Bld)on 09-06-2022 ABO group Nom (Bld) A [facility] D Ag Ql (RBC) Negative [facility] Basic metabolic 1998 panelon 09-06-2022 Anion gap [Moles/Vol] 5 mmol/L 3 - 13 mmol/L [facility] Calcium [Mass/Vol] 9.2 mg/dL 8.4 - 10. 4 mg/dL [facility] Chloride [Moles/Vol] 104 mmol/L 98 - 107 mmol/L [facility] CO2 [Moles/Vol] 30 mmol/L 22 - 30 mmol/L [facility] Creatinine [Mass/Vol] 0.86 mg/dL 0.52 - 1.04 mg/dL [facility] GFR/1.73 sq M.predicted MDRD (S/P/Bld) [Vol rate/Area] 72.3 mL/min/{1.73_m2} - PINF [facility] Comment on above: Calculation based on the Chronic Kidney Disease Epidemiology Collaboration (CKD-EPI) equation refit without adjustment for race Glucose [Mass/Vol] 144 mg/dL High 70 - 100 mg/dL [facility] Interpretation and review of laboratory results Abnormal [facility] Potassium [Moles/Vol] 5.4 mmol/L High 3.5 - 5.1 mmol/L [facility] Sodium [Moles/Vol] 139 mmol/L 135 - 145 mmol/L [facility] Urea nitrogen [Mass/Vol] 26 mg/dL High 7 - 17 mg/dL [facility] Slightly Hemolyzed. Interpret Potassium with caution. [facility] Blood type and Crossmatch pa shaheen (Bld)on 09-06-2022 ABO group Nom (Bld) A [facility] Blood group antibody screen GEL Ql Negative [facility] D Ag Ql (RBC) Negative [facility] CBC W Auto Differential pane l (Bld)on 09-06-2022 Basophils (Bld) [#/Vol] 0.0 10*3/uL 0.0 - 0.2 10*3/uL [facility] Basophils/100 WBC (Bld) 0.5 % 0.0 - 2.0 % [facility] Eosinophils (Bld) [#/Vol] 0.2 10*3/uL 0.0 - 0.5 10*3/uL [facility] Eosinophils/100 WBC (Bld) 3.3 % 1.0 - 6.0 % [facility] Erythrocyte distribution width (RBC) [Ratio] 14.5 % 11.5 - 14.5 % [facility] Hematocrit (Bld) [Volume fraction] 40.1 % 35.0 - 47.0 % [facility] Hemoglobin (Bld) [Mass/Vol] 12.9 g/dL 11.7 - 16.0 g/dL [facility] Interpretation and review of laboratory results Normal [facility] Lymphocytes (Bld) [#/Vol] 1.6 10*3/uL 1.0 - 4.3 10*3/uL [facility] Lymphocytes/100 WBC (Bld) 24.7 % 20.0 - 40.0 % [facility] MCH (RBC) [Entitic mass] 30.6 pg 26.0 - 34.0 pg [facility] MCHC (RBC) [Mass/Vol] 32.2 % 32.0 - 36.0 % [facility] MCV (RBC) [Entitic vol] 95.2 fL 80.0 - 98.0 fL [facility] Monocytes (Bld) [#/Vol] 0.5 10*3/uL 0.0 - 0.8 10*3/uL [facility] Monocytes/100 WBC (Bld) 7.9 % 2.0 - 10.0 % [facility] Neutrophils (Bld) [#/Vol] 4.1 10*3/uL 1.8 - 7.0 10*3/uL [facility] Neutrophils/100 WBC (Bld) 63.6 % 40.0 - 80.0 % [facility] Nucleated RBC/100 WBC (Bld) [Ratio] 0.1 % [facility] Platelet mean volume (Bld) [Entitic vol] 8.7 fL 7.4 - 12.4 fL [facility] Platelets (Bld) [#/Vol] 150 10*3/uL 140 - 440 10*3/uL [facility] RBC (Bld) [#/Vol] 4.21 10*6/uL 3.8 - 5.20 10*6/uL [facility] WBC (Bld) [#/Vol] 6.4 10*3/uL 3.6 - 10.7 10*3/uL [facility] CT CERVICAL SPINE WO IV CONT RASTon 09-06-2022 CT CERVICAL SPINE WO IV CONTRAST Patient Name: DRAKE ECHO : 1950 Exam Date/Time: 09/06/2022 02:11 Procedure: CT CERVICAL SPINE WO IV CONTRAST Ordering Provider: HUTSON RICHARD Reason For Exam: Trauma CT CERVICAL SPINE: CLINICAL INDICATION: Neck pain, trauma TECHNIQUE: Transaxial sequence through the cervical spine. Coronal and sagittal reconstructions included. COMPARISON: None FINDINGS: There is normal cervical lordosis. No prevertebral soft tissue swelling. Craniocervical and atlantoaxial articulations are intact. Predental interval is not widened. Vertebral body heights are maintained. No cervical spine fracture. No spondylolisthesis. There are multilevel degenerative changes of the cervical spine with intervertebral disc space narrowing, endplate osteophytes, and uncovertebral and facet joint hypertrophy, most pronounced at C5-C6. No high-grade osseous encroachment of the central canal or neural foramina. Imaged neck soft tissues and lung apices are unremarkable. IMPRESSION: No cervical spine fracture. Report Dictated on Electronically Signed By: Tiago Charles Electronically Signed Date/Time: 09/06/2022 2:24 AM EDT Normal [facility] CT Cervical spine WO contras ton 09-06-2022 No cervical spine fr acture. Report Dictated on Electronically Signed By: Tiago Charles Electronically Signed Date/Time: 09/06/2022 2:24 AM EDT [facility] Patient Name: DANIEL DIAZ ECHO : 1950 Exam Date/Time: 09/06/2022 02:11 Procedure: CT CERVICAL SPINE WO IV CONTRAST Ordering Provider: HUTSON RICHARD Reason For Exam: Trauma CT CERVICAL SPINE: CLINICAL INDICATION: Neck pain, trauma TECHNIQUE: Transaxial sequence through the cervical spine. Coronal and sagittal reconstructions included. COMPARISON: None FINDINGS: There is normal cervical lordosis. No prevertebral soft tissue swelling. Craniocervical and atlantoaxial articulations are intact. Predental interval is not widened. Vertebral body heights are maintained. No cervical spine fracture. No spondylolisthesis. There are multilevel degenerative changes of the cervical spine with intervertebral disc space narrowing, endplate osteophytes, and uncovertebral and facet joint hypertrophy, most pronounced at C5-C6. No high-grade osseous encroachment of the central canal or neural foramina. Imaged neck soft tissues and lung apices are unremarkable. [facility] Tiago Charles MD - Patient Name: PATSY JUAN : 1950 Exam Date/Time: 09/06/2022 02:11 Procedure: CT CERVICAL SPINE WO IV CONTRAST Ordering Provider: HUTSON RICHARD Reason For Exam: Trauma CT CERVICAL SPINE: CLINICAL INDICATION: Neck pain, trauma TECHNIQUE: Transaxial sequence through the cervical spine. Coronal and sagittal reconstructions included. COMPARISON: None FINDINGS: There is normal cervical lordosis. No prevertebral soft tissue swelling. Craniocervical and atlantoaxial articulations are intact. Predental interval is not widened. Vertebral body heights are maintained. No cervical spine fracture. No spondylolisthesis. There are multilevel degenerative changes of the cervical spine with intervertebral disc space narrowing, endplate osteophytes, and uncovertebral and facet joint hypertrophy, most pronounced at C5-C6. No high-grade osseous encroachment of the central canal or neural foramina. Imaged neck soft tissues and lung apices are unremarkable. IMPRESSION: No cervical spine fracture. Report Dictated on Electronically Signed By: Tiago Charles Electronically Signed Date/Time: 09/06/2022 2:24 AM EDT [email or web address] CT HEAD WO IV CONTRAST Patient Name: PATSY JUAN : 1950 Exam Date/Time: 09/06/2022 08:26 Procedure: CT HEAD WO IV CONTRAST Ordering Provider: FUENTES CALEB Reason For Exam: repeat fall on thinners EXAMINATION: CT head TECHNIQUE: Axial CT images of the head were obtained without IV contrast at 3 mm intervals. Coronal and sagittal reconstructions were also provided. INDICATION: repeat fall on thinners Findings: There does appear to be slight diffuse parenchymal volume loss of the right frontal lobe which is asymmetric compared to the left. Otherwise, the ventricles, sulci and cisterns are grossly normal in size and configuration. Slightly diminished attenuation in the periventricular white matter is likely secondary to chronic small vessel ischemia. The cabrera-white differentiation is grossly intact. Probable small lacunar infarcts of the bilateral basal ganglia are noted. There are no extra-axial fluid collections or acute intracranial hemorrhage appreciated. There is no midline shift identified. The posterior fossa is grossly unremarkable. There is trace fluid posteriorly within the right sphenoid sinus. Otherwise, the paranasal sinuses and mastoid air cells are grossly clear. The bones are grossly unremarkable. There is atherosclerotic calcification of the carotid siphons. Mild atherosclerotic calcification of the distal vertebral arteries is also noted. IMPRESSION: No CT evidence of acute intracranial abnormality, other than mild acute sphenoid sinusitis. Report Dictated on Electronically Signed By: Gloria Darnell Electronically Signed Date/Time: 09/06/2022 8:39 AM EDT [facility] CT HEAD WO IV CONTRAST [facility] 1950 [id number] Exam Date/Time: 09/06/2022 02:11 Procedure: CT HEAD WO IV CONTRAST Ordering Provider: HUTSON RICHARD Reason For Exam: Trauma CT HEAD: CLINICAL INDICATION: Pain, trauma TECHNIQUE: Transaxial CT sequence performed through the head with 3 mm reconstruction. Sagittal and Coronal reconstruction images included. COMPARISON: None FINDINGS: Ventricles and sulci are prominent, consistent with age-related cerebral volume loss. There are scattered foci of hypoattenuation in the periventricular and subcortical white matter, which is nonspecific, but commonly seen with chronic small vessel ischemia. No extra-axial collection. No acute intracranial hemorrhage. No mass effect or midline shift. No CT evidence of an acute large territorial infarction. Vascular calcifications noted skull base. Imaged paranasal sinuses and mastoid air cells are well aerated. Calvarium is unremarkable. IMPRESSION: No acute intracranial hemorrhage or mass effect. Report Dictated on Electronically Signed By: Tiago Charles Electronically Signed Date/Time: 09/06/2022 2:16 AM EDT [facility] CT Head WO contraston [address] evidence of ac radhika intracranial abnormality, other than mild acute sphenoid sinusitis. Report Dictated on Electronically Signed By: Gloria Darnell Electronically Signed Date/Time: 09/06/2022 8:39 AM EDT [facility] [employer] Patient Name: PATSY MCFARLANE : 1950 Exam Date/Time: 09/06/2022 08:26 Procedure: CT HEAD WO IV CONTRAST Ordering Provider: FUENTES CALEB Reason For Exam: repeat fall on thinners EXAMINATION: CT head TECHNIQUE: Axial CT images of the head were obtained without IV contrast at 3 mm intervals. Coronal and sagittal reconstructions were also provided. INDICATION: repeat fall on thinners Findings: There does appear to be slight diffuse parenchymal volume loss of the right frontal lobe which is asymmetric compared to the left. Otherwise, the ventricles, sulci and cisterns are grossly normal in size and configuration. Slightly diminished attenuation in the periventricular white matter is likely secondary to chronic small vessel ischemia. The cabrera-white differentiation is grossly intact. Probable small lacunar infarcts of the bilateral basal ganglia are noted. There are no extra-axial fluid collections or acute intracranial hemorrhage appreciated. There is no midline shift identified. The posterior fossa is grossly unremarkable. There is trace fluid posteriorly within the right sphenoid sinus. Otherwise, the paranasal sinuses and mastoid air cells are grossly clear. The bones are grossly unremarkable. There is atherosclerotic calcification of the carotid siphons. Mild atherosclerotic calcification of the distal vertebral arteries is also noted. [facility] [employer] Gloria Darnell MD - 09/06/2022 Patient Name: DRAKE ECHO : 1950 Exam Date/Time: 09/06/2022 08:26 Procedure: CT HEAD WO IV CONTRAST Ordering Provider: FUENTES CALEB Reason For Exam: repeat fall on thinners EXAMINATION: CT head TECHNIQUE: Axial CT images of the head were obtained without IV contrast at 3 mm intervals. Coronal and sagittal reconstructions were also provided. INDICATION: repeat fall on thinners Findings: There does appear to be slight diffuse parenchymal volume loss of the right frontal lobe which is asymmetric compared to the left. Otherwise, the ventricles, sulci and cisterns are grossly normal in size and configuration. Slightly diminished attenuation in the periventricular white matter is likely secondary to chronic small vessel ischemia. The cabrera-white differentiation is grossly intact. Probable small lacunar infarcts of the bilateral basal ganglia are noted. There are no extra-axial fluid collections or acute intracranial hemorrhage appreciated. There is no midline shift identified. The posterior fossa is grossly unremarkable. There is trace fluid posteriorly within the right sphenoid sinus. Otherwise, the paranasal sinuses and mastoid air cells are grossly clear. The bones are grossly unremarkable. There is atherosclerotic calcification of the carotid siphons. Mild atherosclerotic calcification of the distal vertebral arteries is also noted. IMPRESSION: No CT evidence of acute intracranial abnormality, other than mild acute sphenoid sinusitis. Report Dictated on Electronically Signed By: Gloria Darnell Electronically Signed Date/Time: 09/06/2022 8:39 AM T [facility] Radiology Study observation (narrative) [facility] No acute intracrania l hemorrhage or mass effect. Report Dictated on Electronically Signed By: Tiago Charles Electronically Signed Date/Time: 09/06/2022 2:16 AM EDT [facility] Patient Name: DANIEL DIAZ ECHO : 1950 Exam Date/Time: 09/06/2022 02:11 Procedure: CT HEAD WO IV CONTRAST Ordering Provider: HUTSON RICHARD Reason For Exam: Trauma CT HEAD: CLINICAL INDICATION: Pain, trauma TECHNIQUE: Transaxial CT sequence performed through the head with 3 mm reconstruction. Sagittal and Coronal reconstruction images included. COMPARISON: None FINDINGS: Ventricles and sulci are prominent, consistent with age-related cerebral volume loss. There are scattered foci of hypoattenuation in the periventricular and subcortical white matter, which is nonspecific, but commonly seen with chronic small vessel ischemia. No extra-axial collection. No acute intracranial hemorrhage. No mass effect or midline shift. No CT evidence of an acute large territorial infarction. Vascular calcifications noted skull base. Imaged paranasal sinuses and mastoid air cells are well aerated. Calvarium is unremarkable. [facility] Tiago Charles MD - Patient Name: PATSY JUAN [facility] 1950 [facility] [id number] Exam Date/Time: 09/06/2022 02:11 Procedure: CT HEAD WO IV CONTRAST Ordering Provider: HUTSON RICHARD Reason For Exam: Trauma CT HEAD: CLINICAL INDICATION: Pain, trauma TECHNIQUE: Transaxial CT sequence performed through the head with 3 mm reconstruction. Sagittal and Coronal reconstruction images included. COMPARISON: None FINDINGS: Ventricles and sulci are prominent, consistent with age-related cerebral volume loss. There are scattered foci of hypoattenuation in the periventricular and subcortical white matter, which is nonspecific, but commonly seen with chronic small vessel ischemia. No extra-axial collection. No acute intracranial hemorrhage. No mass effect or midline shift. No CT evidence of an acute large territorial infarction. Vascular calcifications noted skull base. Imaged paranasal sinuses and mastoid air cells are well aerated. Calvarium is unremarkable. IMPRESSION: No acute intracranial hemorrhage or mass effect. Report Dictated on Electronically Signed By: Tiago Charles Electronically Signed Date/Time: 09/06/2022 2:[address] [facility] Head WO contrastOrdered B y: Gloria Hernandezroseann on 09-06-2022 [employer] Work Phone: ED Nursing Noteon 09-06-2022 ED Nursing Note RN called back from [facility]idence for report after patient left. This RN updated RN. No questions or concerns Lucy Jones RN 09/06/22 1115 [facility] ED Nursing Note This RN attempted re port at [facility] for patient. RN's busy, medical assistant secretary took RN name and number to return call for report if wanted. Lucy Jones RN 09/06/22 1018 [facility] ED Nursing Note DM ETA 20-30 min (10 20-1030) Lucy Jones RN 09/06/22 0953 [facility] ED Nursing Note Patient resting with eyes closed. Respirations even and unlabored. RN called about work order for call light / panel. Will be there soon to fix. Lucy Jones RN 09/06/22 0944 [facility] ED Nursing Note Pt back in room Lucy Jones RN 09/06/22 0832 [facility] ED Nursing Note Pt at CT Lucy Jones RN 09/06/22 0826 [facility] ED Nursing Note Patient yelling in r oom, due to call light not working in wall. Patient aware, patient door and curtain open. RN went in at this time. Patient wanted to check to see if she had BM. RN also made sure purewick in good position. RN will get vitals and look at orders at this time Lucy Jones RN 09/06/22 0739 [facility] ED Nursing Note Pt to x-ray in stabl e condition. Bárbara Hogan RN 09/06/22225 [facility] ED Nursing Note Report of to bárbara Younger RN 09/06/22220 [facility] ED Nursing Note Bed: 23 Expected date: Expected time: Means of arrival: Comments: SX TEAM Aaron Wallace RN 09/06/22220 [facility] ED Provider Noteon ED Provider Note Emergency Department Encounter Location: [facility] Patient: Patsy Juan : 1950 Date of evaluation: 09/06/2022 ED Provider: Gloria Frost, Time received sign-out: 7am Patsy Juan was checked out to me by Dr RAGLAND. Please see his/her initial documentation for details of the patient's initial ED presentation, physical exam and completed studies. I did perform a substantive portion of the visit including all aspects of the Medical Decision Making. In brief, Patsy Juan is a 72 y.o. female that presented to the emergency department for a fall. She is on blood thinners. I have reviewed and interpreted all of the currently available lab results and diagnostics from this visit: Results for orders placed or performed during the hospital encounter of 09/06/22 Type and Screen Result Value Ref Range ABO Grouping A Antibody Screen NEG Rh Type NEG CBC auto differential Result Value Ref Range Auto WBC 6.4 3.6 - 10.7 10*3/uL RBC 4.21 3.8 - 5.20 10*6/uL Hemoglobin 12.9 11.7 - 16.0 g/dL Hematocrit 40.1 35.0 - 47.0 % MCV 95.2 80.0 - 98.0 fL MCH 30.6 26.0 - 34.0 pg MCHC 32.2 32.0 - 36.0 % RDW 14.5 11.5 - 14.5 % Platelets 150 140 - 440 10*3/uL MPV 8.7 7.4 - 12.4 fL nRBC 0.1 0.0 - 2.0 /100 WBCs Neutrophils Relative 63.6 40.0 - 80.0 % Lymphocytes Relative 24.7 20.0 - 40.0 % Monocytes Relative 7.9 2.0 - 10.0 % Eosinophils Relative 3.3 1.0 - 6.0 % Basophils Relative 0.5 0.0 - 2.0 % Neutrophils Absolute 4.1 1.8 - 7.0 10*3/uL Lymphocytes Absolute 1.6 1.0 - 4.3 10*3/uL Monocytes Absolute 0.5 0.0 - 0.8 10*3/uL Eosinophils Absolute 0.2 0.0 - 0.5 10*3/uL Basophils Absolute 0.0 0.0 - 0.2 10*3/uL Lactic acid, plasma Result Value Ref Range LACTIC ACID 1.4 0.7 - 2.0 mmol/L Magnesium Result Value Ref Range MAGNESIUM 1.8 1.6 - 2.3 mg/dL Phosphorus Result Value Ref Range PHOSPHORUS 3.9 2.5 - 4.5 mg/dL PROTIME/INR & PTT Result Value Ref Range PROTHROMBIN TIME 18.5 (H) 9.0 - 12.0 s INR 1.8 (H) 0.9 - 1.1 APTT 33.8 (H) 20.0 - 30.5 s Drug Screen Panel, Emergency (Drugs of Abuse) Result Value Ref Range AMPHETAMINE SCREEN Negative BARBITURATES SCREEN Negative BENZODIAZEPINE SCREEN Negative COCAINE METAB. SCREEN Negative METHADONE SCREEN Negative OPIATES SCREEN Positive OXYCODONE SCREEN Negative PHENCYCLIDINE SCREEN Negative Ethanol Result Value Ref Range ETHANOL IN SER/PLAS <0.010 0.000 - 0.010 g/dL Troponin I Result Value Ref Range TROPONIN I <0.012 0.000 - 0.034 ng/mL Basic metabolic panel Result Value Ref Range SODIUM 139 135 - 145 mmol/L POTASSIUM 5.4 (H) 3.5 - 5.1 mmol/L CHLORIDE 104 98 - 107 mmol/L CARBON DIOXIDE 30 22 - 30 mmol/L UREA NITROGEN 26 (H) 7 - 17 mg/dL CREATININE 0.86 0.52 - 1.04 mg/dL GLUCOSE 144 (H) 70 - 100 mg/dL CALCIUM 9.2 8.4 - 10.4 mg/dL ANION GAP 5 3 - 13 mmol/L eGFR 72.3 >60.0 mL/min/1.73m*2 Confirmatory ABO/Rh Result Value Ref Range ABO Grouping A Rh Type NEG ECG 12 lead Result Value Ref Range Heart Rate 63 bpm QRSD Interval 104 ms QT Interval 445 ms QTC Interval 457 ms P Hewett 49 degrees QRS Hewett -29 degrees T Wave Hewett 11 degrees OK Interval [address] head wo IV contrast Final Result No CT evidence of acute intracranial abnormality, other than mild acute sphenoid sinusitis. Report Dictated on Electronically Signed By: Gloria Darnell Electronically Signed Date/Time: 09/06/2022 8:39 AM EDT XR shoulder 2+ views left Final Result No fracture or dislocation. Report Dictated on Electronically Signed By: Tiago Charles Electronically Signed Date/Time: 09/06/2022 3:11 AM EDT XR shoulder 2+ views right Final Result No fracture or dislocation. Report Dictated on Electronically Signed By: Tiago Charles Electronically Signed Date/Time: 09/06/2022 2:[address] head wo IV contrast Final Result No acute intracranial hemorrhage or mass effect. Report Dictated on Electronically Signed By: Tiago Charles Electronically Signed Date/Time: 09/06/2022 2:[address] cervical spine wo IV contrast Final Result No cervical spine fracture. Report Dictated on Electronically Signed By: Tiago Charles Electronically Signed Date/Time: 09/06/2022 2:24 AM EDT XR pelvis 1 or 2 views Final Result Upper pelvis is excluded from the [id number]. No fracture or dislocation of the imaged pelvis. Report Dictated on Electronically Signed By: Tiago Charles Electronically Signed Date/Time: 09/06/2022 2:12 AM EDT XR chest 1 view Final Result No focal consolidation or pulmonary edema. Report Dictated on Electronically Signed By: Tiago Charles Electronically Signed Date/Time: 09/06/2022 2:12 AM EDT Final ED Course and MDM: In brief, Patsy Juan is a 72 y.o. female whose (more content not included)... Normal [facility] ED Provider Note Emergency Department Encounter Location: [facility] Patient: Patsy Juan : 1950 Date of evaluation: 09/06/2022 ED Provider: OSMAN MCCORMACK MD Time received sign-out: 0700 Patsy Juan was checked out to me by Dr. Fuentes. Please see his/her initial documentation for details of the patient's initial ED presentation, physical exam and completed studies. I did perform a substantive portion of the visit including all aspects of the Medical Decision Making. In brief, Patsy Juan is a 72 y.o. female that presented to the emergency department after a fall. I have reviewed and interpreted all of the currently available lab results and diagnostics from this visit: Results for orders placed or performed during the hospital encounter of 09/06/22 Type and Screen Result Value Ref Range ABO Grouping A Antibody Screen NEG Rh Type NEG CBC auto differential Result Value Ref Range Auto WBC 6.4 3.6 - 10.7 10*3/uL RBC 4.21 3.8 - 5.20 10*6/uL Hemoglobin 12.9 11.7 - 16.0 g/dL Hematocrit 40.1 35.0 - 47.0 % MCV 95.2 80.0 - 98.0 fL MCH 30.6 26.0 - 34.0 pg MCHC 32.2 32.0 - 36.0 % RDW 14.5 11.5 - 14.5 % Platelets 150 140 - 440 10*3/uL MPV 8.7 7.4 - 12.4 fL nRBC 0.1 0.0 - 2.0 /100 WBCs Neutrophils Relative 63.6 40.0 - 80.0 % Lymphocytes Relative 24.7 20.0 - 40.0 % Monocytes Relative 7.9 2.0 - 10.0 % Eosinophils Relative 3.3 1.0 - 6.0 % Basophils Relative 0.5 0.0 - 2.0 % Neutrophils Absolute 4.1 1.8 - 7.0 10*3/uL Lymphocytes Absolute 1.6 1.0 - 4.3 10*3/uL Monocytes Absolute 0.5 0.0 - 0.8 10*3/uL Eosinophils Absolute 0.2 0.0 - 0.5 10*3/uL Basophils Absolute 0.0 0.0 - 0.2 10*3/uL Lactic acid, plasma Result Value Ref Range LACTIC ACID 1.4 0.7 - 2.0 mmol/L Magnesium Result Value Ref Range MAGNESIUM 1.8 1.6 - 2.3 mg/dL Phosphorus Result Value Ref Range PHOSPHORUS 3.9 2.5 - 4.5 mg/dL PROTIME/INR & PTT Result Value Ref Range PROTHROMBIN TIME 18.5 (H) 9.0 - 12.0 s INR 1.8 (H) 0.9 - 1.1 APTT 33.8 (H) 20.0 - 30.5 s Drug Screen Panel, Emergency (Drugs of Abuse) Result Value Ref Range AMPHETAMINE SCREEN Negative BARBITURATES SCREEN Negative BENZODIAZEPINE SCREEN Negative COCAINE METAB. SCREEN Negative METHADONE SCREEN Negative OPIATES SCREEN Positive OXYCODONE SCREEN Negative PHENCYCLIDINE SCREEN Negative Ethanol Result Value Ref Range ETHANOL IN SER/PLAS <0.010 0.000 - 0.010 g/dL Troponin I Result Value Ref Range TROPONIN I <0.012 0.000 - 0.034 ng/mL Basic metabolic panel Result Value Ref Range SODIUM 139 135 - 145 mmol/L POTASSIUM 5.4 (H) 3.5 - 5.1 mmol/L CHLORIDE 104 98 - 107 mmol/L CARBON DIOXIDE 30 22 - 30 mmol/L UREA NITROGEN 26 (H) 7 - 17 mg/dL CREATININE 0.86 0.52 - 1.04 mg/dL GLUCOSE 144 (H) 70 - 100 mg/dL CALCIUM 9.2 8.4 - 10.4 mg/dL ANION GAP 5 3 - 13 mmol/L eGFR 72.3 >60.0 mL/min/1.73m*2 Confirmatory ABO/Rh Result Value Ref Range ABO Grouping A Rh Type NEG ECG 12 lead Result Value Ref Range Heart Rate 63 bpm QRSD Interval 104 ms QT Interval 445 ms QTC Interval 457 ms P Hewett 49 degrees QRS Hewett -29 degrees T Wave Hewett 11 degrees OK Interval 149 ms XR shoulder 2+ views left Final Result No fracture or dislocation. Report Dictated on Electronically Signed By: Tiago Charles Electronically Signed Date/Time: 09/06/2022 3:11 AM EDT XR shoulder 2+ views right Final Result No fracture or dislocation. Report Dictated on Electronically Signed By: Tiago Charles Electronically Signed Date/Time: 09/06/2022 2:[address] head wo IV contrast Final Result No acute intracranial hemorrhage or mass effect. Report Dictated on Electronically Signed By: Tiago Charles Electronically Signed Date/Time: 09/06/2022 2:[address] cervical spine wo IV contrast Final Result No cervical spine fracture. Report Dictated on Electronically Signed By: Tiago Charles Electronically Signed Date/Time: 09/06/2022 2:24 AM EDT XR pelvis 1 or 2 views Final Result Upper pelvis is excluded from the [id number]. No fracture or dislocation of the imaged pelvis. Report Dictated on Electronically Signed By: Tiago Charles Electronically Signed Date/Time: 09/06/2022 2:12 AM EDT XR chest 1 view Final Result No focal consolidation or pulmonary edema. Report Dictated on Electronically Signed By: Tiago Charles Electronically Signed Date/Time: 09/06/2022 2:[address] head wo IV contrast (Results Pending) Final ED Course and MDM: In brief, Patsy Juan is a 72 y.o. female whose care was signed out to me by the outgoing provider. In brief, the patient was signed out to me pending repeat CT head with plans to DC if negative. Medications acetaminophen (Tylenol) tablet 650 mg (has no administration in time range) Final Impression 1. (more content not included)... [facility] ED Provider Note [facility] EMERGENCY DEPARTMENT ENCOUNTER Pt Name: Patsy Juan Birthdate 1950 Date of evaluation: 09/06/2022 Provider: Del Ragland MD CHIEF COMPLAINT Chief Complaint Patient presents with Fall Patient lies in assisted living and fell, +thinners, A&Ox4 HISTORY OF PRESENT ILLNESS Patsy Juan is a 72 y.o. female who presents to the emergency department with history of cerebral palsy, pulmonary emboli, on Eliquis, lupus, asthma, total knee arthroplasty on the right presents to the emergency department as a surgical team for a fall on thinners. Patient is complaining of pain in the back of her head. She states that she fell when she was going to the bathroom, she lives in assisted living, did not lose consciousness, did not feel lightheaded prior to the episode. She states she is DNR, makes her own medical decisions Blood thinners of anti-platelets: Warfarin Patient was greeted by me immediately upon arrival to the emergency department. REVIEW OF SYSTEMS ROS: focused ROS as per HPI, otherwise unable to obtain due to the acuity of patient's presentation PAST MEDICAL HISTORY Past Medical History: Diagnosis Date Anemia of chronic disease Asthma CAD (coronary artery disease) Cerebral palsy (HCC) Diabetes (HCC) Frequent falls Lupus (CMS/HCC) (HCC) Pulmonary emboli (HCC) SURGICAL HISTORY Past Surgical History: Procedure Laterality Date TOTAL KNEE ARTHROPLASTY Right CURRENT MEDICATIONS Previous Medications No medications on file ALLERGIES 5-alpha reductase inhibitors, Ciprofloxacin, E-mycin [erythromycin], Keflex [cephalexin], Naproxen, Paxil [paroxetine], Phenergan [promethazine], and Statins FAMILY HISTORY No family history on file. SOCIAL HISTORY Social History Socioeconomic History Marital status: Tobacco Use Smoking status: Never Smokeless tobacco: Never Vaping Use Vaping Use: Never used Substance and Sexual Activity Alcohol use: Yes Drug use: Never SCREENINGS PHYSICAL EXAM @EDTRIAGEVSS@ PRIMARY SURVEY: BP (!) 150/61 Pulse 61 Temp 36.8 ?C (98.2 ?F) Resp 16 SpO2 100% Airway: patent, patient talking, no hoarse or muffled voice Pulmonary: spontaneous respiration, bilateral breath sounds Cardiovascular: normal rate, symetric peripheral pulses palpable Neurologic: GCS 1 SECONDARY SURVEY: General: no acute distress, oriented times 3 HEENT: atraumatic head, scalp intact, no facial deformity, PERRLA, TMs clear bilaterally, no hemotympanum or fluid drainage, no blood, fluid in nares, no septal hematoma Neck: cervical collar in place, + midline tenderness Chest: no chest wall tenderness, R clavicle TTP, RRR Gastrointestinal: abdomen soft, NT/ND Musculoskeletal: Right Arm: no obvious deformity or tenderness Left Arm: no obvious deformity or tenderness Right Leg: no obvious deformity or tenderness, no healed surgical scar Left Leg: no obvious deformity or tenderness, swelling, decreased sensation is baseline Back: no midline tenderness, no step-offs, no abrasions Pelvis: stable to compression and nontender Integumentary: warm, dry, no deep lacerations, skin tear on her left wrist Psych: cooperative DIAGNOSTIC RESULTS EKG (Interpreted per Emergency Physician if available) RADIOLOGY (Per Emergency Physician): Interpretation per the Radiologist below, if available at the time of this note: @[email or web address]@ ED BEDSIDE ULTRASOUND: Performed by ED Physician, if available Procedures LABS: Labs Reviewed PROTIME & APTT - Abnormal Result Value PROTHROMBIN TIME 18.5 (*) INR 1.8 (*) APTT 33.8 (*) BASIC METABOLIC PANEL - Abnormal SODIUM 139 POTASSIUM 5.4 (*) CHLORIDE 104 CARBON DIOXIDE 30 UREA NITROGEN 26 (*) CREATININE 0.86 GLUCOSE 144 (*) CALCIUM 9.2 ANION GAP 5 eGFR 72.3 Narrative: Slightly Hemolyzed. Interpret Potassium with caution. CBC WITH AUTO DIFFERENTIAL - Normal Auto WBC 6.4 RBC 4.21 Hemoglobin 12.9 Hematocrit 40.1 MCV 95.2 MCH 30.6 MCHC 32.2 RDW 14.5 Platelets 150 MPV 8.7 nRBC 0.1 Neutrophils Relative 63.6 Lymphocytes Relative 24.7 Monocytes Relative 7.9 Eosinophils Relative 3.3 Basophils Relative 0.5 Neutrophils Absolute 4.1 Lymphocytes Absolute 1.6 Monocytes Absolute 0.5 Eosinophils Absolute 0.2 Basophils Absolute 0.0 LACTIC ACID, PLASMA - Normal LACTIC ACID 1.4 MAGNESIUM - Normal MAGNESIUM 1.8 Narrative: .01 PHOSPHORUS - Normal PHOSPHORUS 3.9 Narrative: Slightly Hemolyzed. Interpret Phosphorus with caution. ETHANOL - Normal ETHANOL IN SER/PLAS <0.010 Narrative: NOTE: This result is for medical treatment only. Analysis performed using non-forensic procedures. TROPONIN I - Normal TROPONIN I <0.012 Narrative: Patients with high levels of Biotin oral intake (ie >5 mg/day) may have falsely decreased Troponin levels. BLOOD TYPE AND SCREEN GEL ABO Grouping A Ant (more content not included)... Normal [facility] [employer] [facility] Ethanol (Bld) [Mass/Vol]on 0 09-06-2022 Ethanol [Mass/Vol] g/dL 0.000 - 0.010 g/dL [facility] - Chemistry and C hemistry - challengeon 09-06-2022 Troponin I.cardiac [Mass/Vol] ng/mL 0.000 - 0.034 ng/mL [facility] Magnesium [Mass/Vol] 1.8 mg/dL 1.6 - 2.3 mg/dL [facility] Lactate [Moles/Vol] 1.4 mmol/L 0.7 - 2. 0 mmol/L [facility] Laboratory - Coagulationon 0 09-06-2022 aPTT Coag (PPP) [Time] 33.8 s High 20.0 - 30.5 s [facility] INR Coag (PPP) [Relative time] 1.8 {INR} High 0.9 - 1.1 [facility] Comment on above: Recommended Anticoag ulant Therapy: SEE BELOW ----- INR of 2.0 - 3.0 : - Prophylaxis of Venous Thrombosis (high-risk surgery) - Treatment of Venous Thrombosis - Treatment of Pulmonary Embolism (Includes tissue heart valves, Acute Myocardial Infarction to prevent systemic embolism, Valvular Heart Disease, and Atrial Fibrillation) ----- INR of 2.5 - 3.5 : - Mechanical Prosthetic Valves (high risk) - If oral anticoagulant therapy is used to prevent Myocardial Infarction PT Coag (Bld) [Time] 18.5 s High 9.0 - 12.0 s [facility] - Drug toxicology Ordered By: Harper Estes on 09-06-2022 Amphetamines Screen method >1000 ng/mL Ql (U) Negative [facility] Barbiturates Screen method >200 ng/mL Ql (U) Negative [facility] Benzodiazepines Ql (U) Negative [facility] Methadone Screen Ql (U) Negative [facility] Opiates Screen Ql (U) Positive [facility] oxyCODONE Ql (U) Negative [facility] Phencyclidine Ql (U) Negative [facility] Magnesium [Mass/Vol]on 09-06 .01 [facility] No Panel InformationOrdered By: Harper Estes on 09-06-2022 COCAINE METAB. SCREEN Negative [facility] The expected value f or all of the drugs listed above is Negative. The following drugs or drug groups have been screened for by Immunoassay at the following thresholds: Amphetamine class (1000 ng/mL) Barbiturates (200 ng/mL) Benzodiazepines (200 ng/mL) Cocaine (300 ng/mL) Methadone (300 ng/mL) Opiates (300 ng/mL) Oxycodone (100 ng/mL) PCP (25 ng/mL) NOTE: These results are for medical treatment only. Analysis performed using non-forensic procedures. POSITIVE results are NOT confirmed by a more specific alternative method unless requested. If confirmation is needed, request confirmation under separate order. [facility] No Panel Informationon 09-06 Interpretation and review of laboratory results Normal [facility] Interpretation and review of laboratory results Normal [facility] Interpretation and review of laboratory results Abnormal [facility] Radiology Study observation (narrative) [facility] Phosphate [Moles/Vol]on 08-20 Phosphate [Mass/Vol] 3.9 mg/dL 2.5 - 4.5 mg/dL [facility] Slightly Hemolyzed. Interpret Phosphorus with caution. [facility] Progress Noteon 09-06-2022 Progress Note Department of Trauma / Critical Care Tertiary Survey Date of Trauma: 09/06/2022 1:36 AM MARIANELA/HPI: 72 y.o. female status post fall from standing. The incident happened around 0120 on 09/06/22 at [facility]. When the event happened the patient was standing and then fell to the ground. The fall was not syncopal, it was mechanical. She reportedly struck the back of her head on the bathtub. She is a DNR-Comfort Care. Patient pain level currently is 5/10. Patient confirms for us that she was trying to pull her diaper up when she fell to the ground. PMH: Past Medical History: Diagnosis Date Anemia of chronic disease Asthma CAD (coronary artery disease) Cerebral palsy (HCC) Diabetes (HCC) Frequent falls Lupus (CMS/HCC) (HCC) Pulmonary emboli (HCC) PSH: Past Surgical History: Procedure Laterality Date TOTAL KNEE ARTHROPLASTY Right PCP: No primary care provider on file. Physical Exam: Physical Exam Constitutional: General: She is not in acute distress. Appearance: She is obese. She is not ill-appearing, toxic-appearing or diaphoretic. Comments: Appears stated age. HENT: Head: Small posterior occipital cephalohematoma Right Ear: External ear normal. Left Ear: External ear normal. Nose: Nose normal. No rhinorrhea. Mouth/Throat: Mouth: Mucous membranes are moist. Eyes: General: No scleral icterus. Right eye: No discharge. Left eye: No discharge. Extraocular Movements: Extraocular movements intact. Conjunctiva/sclera: Conjunctivae normal. Neck: Comments: negative Cardiovascular: Rate and Rhythm: Normal rate and regular rhythm. Pulses: Normal pulses. Pulmonary: Effort: Pulmonary effort is normal. No respiratory distress. Breath sounds: No wheezing. Abdominal: General: There is distension. Palpations: There is no mass. Tenderness: There is no abdominal tenderness. There is no guarding or rebound. Genitourinary: Comments: Gluteal squeeze intact/present. Significant fungal infection to folds Musculoskeletal: General: Swelling present. No tenderness, deformity or signs of injury. Normal range of motion. Arms: Left hand skin tear Right lower leg: Edema present. Left lower leg: Edema present. Feet: Chronic wound to left foot with dressing in place Comments: Baseline weakness given cerebral palsy Skin: General: Skin is warm and dry. Findings: Erythema (Significant fungal infection to folds, breasts, genitalial region) present. Neurological: General: No focal deficit present. Mental Status: She is alert and oriented to person, place, and time. Mental status is at baseline. Cranial Nerves: No cranial nerve deficit (no gross deficits present). Psychiatric: Mood and Affect: Mood normal. Behavior: Behavior normal. Thought Content: Thought content normal. CBC with Differential: No results found for: WBC, RBC, HGB, HCT, PLT, MCV, MCH, MCHC, RDW, NRBC, SEGSPCT, BANDSPCT, BLASTSPCT, METASPCT, LYMPHOPCT, PROMYELOPCT, MONOPCT, MYELOPCT, EOSPCT, BASOPCT, MONOSABS, LYMPHSABS, EOSABS, BASOSABS, DIFFTYPE BMP: No results found for: NA, K, CL, CO2, BUN, CREATININE, CALCIUM, LABGLOM, GLUCOSE, GLU PT/INR: No results found for: PROTIME, INR Extremity PhysicalExam RUE: Tenderness: absent Edema: absent ROM: normal RLE: Tenderness: absent Edema: absent ROM: normal LUE: Tenderness:absent Edema: absent ROM: normal LLE:: absent Edema: absent ROM:normal Review of Imaging: ECG 12 lead Result Date: 09/06/2022 Sinus rhythm Borderline left axis deviation Probable lateral infarct, old Abnrm R prog, consider ASMI or lead placement XR shoulder 2+ views left Result Date: 09/06/2022 Patient Name: PATSY JUAN : 1950 Exam Date/Time: 09/06/2022 02:47 Procedure: XR SHOULDER 2+ VIEWS LEFT Ordering Provider: FUENTES CALEB Reason For Exam: Fall pain trauma LEFT SHOULDER: CLINICAL INDICATION: Pain. TECHNIQUE: Four views of the left shoulder COMPARISON: None. FINDINGS: There is no evidence for fracture or dislocation. The glenohumeral and acromioclavicular joints are unremarkable. No bone lesion is identified. There is no soft tissue abnormality. No fracture or dislocation. Report Dictated on Electronically Signed By: Tiago Charles Electronically Signed Date/Time: 09/06/2022 3:11 AM EDT XR shoulder 2+ views right Result Date: 09/06/2022 Patient Name: PATSY JUAN : 1950 Exam Date/Time: 09/06/2022 02:47 Procedure: XR SHOULDER 2+ VIEWS RIGHT Ordering Provider: HUTSON RICHARD Reason For Exam: Fall, pain trauma RIGHT SHOULDER: CLINICAL INDICATION: Fall, pain, trauma. TECHNIQUE: Four views of the right shoulder COMPARISON: None. FINDINGS: There is no evidence for fracture or dislocation. The glenohumeral and acromioclavicular joints are unremarkable. No bone lesion is identified. There (more content not included)... Normal [facility] Troponin I.cardiac [Mass/Vol ]on 09-06-2022 Interpretation and review of laboratory results Normal [facility] Patients with high l evels of Biotin oral intake (ie >5 mg/day) may have falsely decreased Troponin levels. [facility] XR Chest Single viewon 09-06 No focal consolidati on or pulmonary edema. Report Dictated on Electronically Signed By: Tiago Charles Electronically Signed Date/Time: 09/06/2022 2:12 AM EDT [facility] [employer] Patient Name: PATSY MCFARLANE : 1950 Exam Date/Time: 09/06/2022 02:06 Procedure: XR CHEST 1 VIEW Ordering Provider: HUTSON RICHARD Reason For Exam: TRAUMA PORTABLE CHEST CLINICAL INDICATION: Pain, trauma TECHNIQUE: Portable AP COMPARISON: None FINDINGS: No focal consolidation or pulmonary edema. No pleural effusions or pneumothorax. The cardiac and mediastinal silhouettes are normal. Degenerative change of the thoracic spine is noted. [facility] Tiago Charles MD - Patient Name: PATSY JUAN : 1950 Exam Date/Time: 09/06/2022 02:06 Procedure: XR CHEST 1 VIEW Ordering Provider: HUTSON RICHARD Reason For Exam: TRAUMA PORTABLE CHEST CLINICAL INDICATION: Pain, trauma TECHNIQUE: Portable AP COMPARISON: None FINDINGS: No focal consolidation or pulmonary edema. No pleural effusions or pneumothorax. The cardiac and mediastinal silhouettes are normal. Degenerative change of the thoracic spine is noted. IMPRESSION: No focal consolidation or pulmonary edema. Report Dictated on Electronically Signed By: Tiago Charles Electronically Signed Date/Time: 09/06/2022 2:12 AM EDT [facility] Radiology Study observation (narrative) [facility] XR Chest Single viewOrdered By: Tiago Charles on 09-06-2022 [employer] Work Phone: XR Pelvis 1 or 2 Viewson Upper pelvis is excl uded from the [id number]. No fracture or dislocation of the imaged pelvis. Report Dictated on Workstation: [id number] Electronically Signed By: Tiago Charles Electronically Signed Date/Time: 09/06/2022 2:12 AM EDT [facility] [employer] Patient Name: DANIEL DIAZ ECHO : 1950 Exam Date/Time: 09/06/2022 02:07 Procedure: XR PELVIS 1-2 VIEWS Ordering Provider: HUTSON RICHARD Reason For Exam: TRAUMA PELVIS: CLINICAL INDICATION: Pain, trauma. TECHNIQUE: AP. Technical note: Upper pelvis is excluded from the [id number]. COMPARISON: None. FINDINGS: There is no evidence for fracture or dislocation. The hips joints are unremarkable. The imaged sacroiliac joints are normal. No bone lesion is identified. There is no soft tissue abnormality. Surgical clips project over the right groin. [facility] Tiago Charles MD - Patient Name: DRAEK ECHO : 1950 Exam Date/Time: 09/06/2022 02:07 Procedure: XR PELVIS 1-2 VIEWS Ordering Provider: HUTSON RICHARD Reason For Exam: TRAUMA PELVIS: CLINICAL INDICATION: Pain, trauma. TECHNIQUE: AP. Technical note: Upper pelvis is excluded from the [id number]-[id number]. COMPARISON: None. FINDINGS: There is no evidence for fracture or dislocation. The hips joints are unremarkable. The imaged sacroiliac joints are normal. No bone lesion is identified. There is no soft tissue abnormality. Surgical clips project over the right groin. IMPRESSION: Upper pelvis is excluded from the [id number]. No fracture or dislocation of the imaged pelvis. Report Dictated on Workstation: [id number] Electronically Signed By: Tiago Charles Electronically Signed Date/Time: 09/06/2022 2:12 AM EDT [facility] Radiology Study observation (narrative) [facility] [employer] XR Shoulder - left 2 Viewson 09-06-2022 No fracture or dislo cation. Report Dictated on Electronically Signed By: Tiago Charles Electronically Signed Date/Time: 09/06/2022 3:11 AM EDT [facility] Patient Name: PATSY MCFARLANE : 1950 Exam Date/Time: 09/06/2022 02:47 Procedure: XR SHOULDER 2+ VIEWS LEFT Ordering Provider: FUENTES CALEB Reason For Exam: Fall pain trauma LEFT SHOULDER: CLINICAL INDICATION: Pain. TECHNIQUE: Four views of the left shoulder COMPARISON: None. FINDINGS: There is no evidence for fracture or dislocation. The glenohumeral and acromioclavicular joints are unremarkable. No bone lesion is identified. There is no soft tissue abnormality. [facility] Tiago Charles MD - Patient Name: PATSY JUAN : 1950 Exam Date/Time: 09/06/2022 02:47 Procedure: XR SHOULDER 2+ VIEWS LEFT Ordering Provider: FUENTES CALEB Reason For Exam: Fall pain trauma LEFT SHOULDER: CLINICAL INDICATION: Pain. TECHNIQUE: Four views of the left shoulder COMPARISON: None. FINDINGS: There is no evidence for fracture or dislocation. The glenohumeral and acromioclavicular joints are unremarkable. No bone lesion is identified. There is no soft tissue abnormality. IMPRESSION: No fracture or dislocation. Report Dictated on Electronically Signed By: Tiago Charles Electronically Signed Date/Time: 09/06/2022 3:11 AM EDT [facility] Radiology Study observation (narrative) [facility] [employer] XR Shoulder - right 2 Viewso n 09-06-2022 No fracture or dislo cation. Report Dictated on Electronically Signed By: Tiago Charles Electronically Signed Date/Time: 09/06/2022 2:42 AM EDT [facility] Patient Name: PATSY MCFARLANE : 1950 Exam Date/Time: 09/06/2022 02:47 Procedure: XR SHOULDER 2+ VIEWS RIGHT Ordering Provider: HUTSON RICHARD Reason For Exam: Fall, pain trauma RIGHT SHOULDER: CLINICAL INDICATION: Fall, pain, trauma. TECHNIQUE: Four views of the right shoulder COMPARISON: None. FINDINGS: There is no evidence for fracture or dislocation. The glenohumeral and acromioclavicular joints are unremarkable. No bone lesion is identified. There is no soft tissue abnormality. [facility] Tiago Charles MD - Patient Name: PATSY JUAN : 1950 Exam Date/Time: 09/06/2022 02:47 Procedure: XR SHOULDER 2+ VIEWS RIGHT Ordering Provider: HUTSON RICHARD Reason For Exam: Fall, pain trauma RIGHT SHOULDER: CLINICAL INDICATION: Fall, pain, trauma. TECHNIQUE: Four views of the right shoulder COMPARISON: None. FINDINGS: There is no evidence for fracture or dislocation. The glenohumeral and acromioclavicular joints are unremarkable. No bone lesion is identified. There is no soft tissue abnormality. IMPRESSION: No fracture or dislocation. Report Dictated on Electronically Signed By: Tiago Charles Electronically Signed Date/Time: 09/06/2022 2:42 AM EDT [facility] Radiology Study observation (narrative) [facility] CULTURE BLOODon 03-14-2022 Microscopic examination of blood, culture CULTURE BLOOD --> Status: F [employer] testing is not routinely performed on Gram positive bacilli. If a Listeria infection is highly suspected, contact the Microbiology laboratory ([phone]). positive bacilli. If a Listeria infection is highly suspected, contact the Microbiology laboratory ([phone]). 1 Organism Propionibacterium acnes Isolated: Contamination likely unless additional blood culture sets are found to be positive with the same organism. Normal [facility] Comment on above: Performed By: #### C /BLD #### [facility] [employer] [facility] [address], [place] CULTURE BLOOD (Two)on 2021 Microscopic examination of blood, culture CULTURE BLOOD (Two) --> Status: F No growth at 5 days. Normal [facility] Comment on above: Performed By: #### P T/AP, BMP3, HEMDF #### [facility] [address] [place] [address] GASTROINTESTINAL PCR PANELon 03-12-2022 GASTROINTESTINAL PCR PANEL GASTROINTESTINAL PCR PANEL --> Status: F NEGATIVE: No targets were detected by the [employer] Gastrointestinal PCR Panel. _ The [employer] Gastrointestinal PCR Panel can detect the following targets: Campylobacter, Plesiomonas shigelloides, Salmonella, Vibrio species, Vibrio cholerae, Yersinia enterocolitica, Shiga toxin-producing E coli (STEC) including E coli O157, Enterotoxigenic E coli (ETEC), Shigella/Enteroinvasive E coli (EIEC), Cryptosporidium, Cyclospora cayetanensis, Entamoeba histolytica, Giardia lamblia, Adenovirus F 40/41, Astrovirus, Norovirus GI/GII, Rotavirus A, Sapovirus Gastrointestinal PCR Panel. _ The [employer] Gastrointestinal PCR Panel can detect the following targets: Campylobacter, Plesiomonas shigelloides, Salmonella, Vibrio species, Vibrio cholerae, Yersinia enterocolitica, Shiga toxin-producing E coli (STEC) including E coli O157, Enterotoxigenic E coli (ETEC), Shigella/Enteroinvasive E coli (EIEC), Cryptosporidium, Cyclospora cayetanensis, Entamoeba histolytica, Giardia lamblia, Adenovirus F 40/41, Astrovirus, Norovirus GI/GII, Rotavirus A, Sapovirus [facility] Comment on above: Performed By: #### B FGI #### [facility] [employer] [facility] [address] [place], [place] Gastrointestinal Panel by CEDRICK Blue 03-12-2022 Gastrointestinal PCR Panel NEGATIVE: No targets were detected by the [employer] Gastrointestinal PCR Panel. _ The [employer] Gastrointestinal PCR Panel can detect the following targets: Campylobacter, Plesiomonas shigelloides, Salmonella, Vibrio species, Vibrio cholerae, Yersinia enterocolitica, Shiga toxin-producing E coli (STEC) including E coli O157, Enterotoxigenic E coli (ETEC), Shigella/Enteroinvasive E coli (EIEC), Cryptosporidium, Cyclospora cayetanensis, Entamoeba histolytica, Giardia lamblia, Adenovirus F 40/41, Astrovirus, Norovirus GI/GII, Rotavirus A, Sapovirus [facility] Test Performed by [facility], [address] [place] [id number] [place] [address] LAB [facility] Glucose,Bedsideon 03-12-2022 Glucose [Mass/Vol] 177 mg/dL [address] Comment on above: Result Comment: Test performed by glucose meter. Results may be 10%-15% lower than serum/plasma values. (CLIA ID [id number]) Performed By: #### B GLU #### [facility] [address] [place] [address] Glucose [Mass/Vol] 130 mg/dL [address] Comment on above: Result Comment: Test performed by glucose meter. Results may be 10%-15% lower than serum/plasma values. (CLIA ID [id number]) Performed By: #### B GLU #### [facility] [address] [place] [address] Glucose [Mass/Vol] 141 mg/dL [address] Comment on above: Result Comment: Test performed by glucose meter. Results may be 10%-15% lower than serum/plasma values. (CLIA ID [id number]) Performed By: #### P T/AP, BMP3, HEMDF #### [facility] [address] [place] [address] Glucose [Mass/Vol] 120 mg/dL [address] Comment on above: Result Comment: Test performed by glucose meter. Results may be 10%-15% lower than serum/plasma values. (CLIA ID [id number]) Performed By: #### B GLU #### [facility] [address] [place] [address] POCT GlucoseOrdered By: Hansel Connell on 03-12-2022 Glucose [Mass/Vol] 177 mg/dL High 70 - 100 mg/dL [facility] Work Phone: Comment on above: Test performed by gl ucose meter. Results may be 10%-15% lower than serum/plasma values. (CLIA ID [id number]) Interpretation and review of laboratory results Abnormal [facility] Work Phone: [facility] Work Phone: POCT Glucoseon 03-12-2022 Test Performed by [facility], [address] LAB Glucose [Mass/Vol] 130 mg/dL High 70 - 100 mg/dL [facility] Comment on above: Test performed by gl ucose meter. Results may be 10%-15% lower than serum/plasma values. (CLIA ID [id number]) Interpretation and review of laboratory results Abnormal [facility] Test Performed by [facility], [address] LAB [facility] Glucose [Mass/Vol] 141 mg/dL High 70 - 100 mg/dL [facility] Comment on above: Test performed by gl ucose meter. Results may be 10%-15% lower than serum/plasma values. (CLIA ID [id number]) Interpretation and review of laboratory results Abnormal [facility] Test Performed by [facility], [address] LAB [facility] Glucose [Mass/Vol] 120 mg/dL High 70 - 100 mg/dL [facility] Work Phone: Comment on above: Test performed by gl ucose meter. Results may be 10%-15% lower than serum/plasma values. (CLIA ID [id number]) Interpretation and review of laboratory results Abnormal [facility] Work Phone: Test Performed by [facility], [address] LAB [facility] Work Phone: Prothrombin Timeon 2 INR 3.6 High 0.9-1.1 [facility] Comment on above: Result Comment: Rajiv mmended Anticoagulant Therapy: SEE BELOW ----- INR of 2.0 - 3.0 : - Prophylaxis of Venous Thrombosis (high-risk surgery) - Treatment of Venous Thrombosis - Treatment of Pulmonary Embolism (Includes tissue heart valves, Acute Myocardial Infarction to prevent systemic embolism, Valvular Heart Disease, and Atrial Fibrillation) ----- INR of 2.5 - 3.5 : - Mechanical Prosthetic Valves (high risk) - If oral anticoagulant therapy is used to prevent Myocardial Infarction Performed By: #### P T/AP, BMP3, HEMDF #### [facility] [address] [place] [address] PT Coag (PPP) [Time] 36.1 s High 9.0-12.0 [facility] Comment on above: Result Comment: . Performed By: #### P T/AP, BMP3, HEMDF #### [facility] [address] [place] [address] Protime-INRon 03-12-2022 INR Coag (Bld) [Relative time] 3.6 {INR} High [facility] Comment on above: Recommended Anticoag ulant Therapy: SEE BELOW ----- INR of 2.0 - 3.0 : - Prophylaxis of Venous Thrombosis (high-risk surgery) - Treatment of Venous Thrombosis - Treatment of Pulmonary Embolism (Includes tissue heart valves, Acute Myocardial Infarction to prevent systemic embolism, Valvular Heart Disease, and Atrial Fibrillation) ----- INR of 2.5 - 3.5 : - Mechanical Prosthetic Valves (high risk) - If oral anticoagulant therapy is used to prevent Myocardial Infarction Interpretation and review of laboratory results Abnormal [facility] PT Coag (PPP) [Time] 36.1 s High 9 - 12 s [facility] Comment on above: . Test Performed by [facility], [address], [place], [place] [id number] [place] [address] LAB [facility] Basic Metabolic Panelon 02-21 Anion gap [Moles/Vol] 1 mmol/L Low 3-13 [facility] Comment on above: Performed By: #### P T/AP, BMP3, HEMDF #### [facility] [address] [place] [address] Calcium [Mass/Vol] 8.1 mg/dL Low 8.4-10.4 [facility] Comment on above: Performed By: #### P T/AP, BMP3, HEMDF #### [facility] [employer] [facility] [address] [place] [address] CO2 [Moles/Vol] 30 mmol/L Normal 22-30 [facility] Comment on above: Performed By: #### P T/AP, BMP3, HEMDF #### [facility] [employer] [facility] [address] [place] [address] Creatinine [Mass/Vol] 0.70 mg/dL Normal 0.52-1.25 [facility] Comment on above: Performed By: #### P T/AP, BMP3, HEMDF #### [facility] [employer] [facility] [address] [place] [address] GFR/1.73 sq M.predicted among blacks MDRD (S/P/Bld) [Vol rate/Area] mL/min/{1.73_m2} Normal >60 [facility] Comment on above: Performed By: #### P T/AP, BMP3, HEMDF #### [facility] [employer] [facility] [address] [place] [address] GFR/1.73 sq M.predicted among non-blacks MDRD (S/P/Bld) [Vol rate/Area] 87.4 mL/min/{1.73_m2} Normal >60 [facility] Comment on above: Result Comment: KDIG O guidelines provide the following GFR categories: Stage GFR(ml/min/1.73 m2) Terms G1 >=90 Normal or high G2 60-89 Mildly decreased* G3a 45-59 Mildly to moderately decreased G3b 30-44 Moderately to severely decreased G4 15-29 Severely decreased G5 <15 Kidney failure *Relative to young adult level. In the absence of evidence of kidney damage, neither GFR category G1 nor G2 fulfill the criteria for CKD. The CKD-EPI equation is validated in individuals 18 years of age and older. Currently the best equation for estimating glomerular filtration rate (GFR) from serum creatinine in children is the Bedside Tapia equation. It is less accurate in patients with extremes of muscle mass, restriction of dietary protein, ingestion of creatine, extra-renal metabolism of creatinine, or treatment with medications that affect renal tubular creatinine secretion. Performed By: #### P T/AP, BMP3, HEMDF #### [facility] [employer] [facility] [address] [place] [address] Glucose [Mass/Vol] 118 mg/dL High 70-100 [facility] Comment on above: Performed By: #### P T/AP, BMP3, HEMDF #### [facility] [employer] [facility] [address] [place] [address] Urea nitrogen [Mass/Vol] 8 mg/dL Low 9-20 [facility] Comment on above: Performed By: #### P T/AP, BMP3, HEMDF #### [facility] [employer] [facility] [address] [place] [address] Chloride [Moles/Vol] 106 mmol/L Normal 98-107 [facility] Comment on above: Performed By: #### P T/AP, BMP3, HEMDF #### [facility] [employer] [facility] [address] [place] [address] Potassium [Moles/Vol] 4.1 mmol/L Normal 3.5-5.1 [facility] Comment on above: Performed By: #### P T/AP, BMP3, HEMDF #### [facility] [employer] [facility] [address] [place] [address] Sodium [Moles/Vol] 137 mmol/L Normal 135-145 [facility] Comment on above: Performed By: #### P T/AP, BMP3, HEMDF #### [facility] [employer] [facility] [address] [place] [address] Anion gap [Moles/Vol] 1 mmol/L Low 3 - 13 mmol/L [facility] Calcium [Mass/Vol] 8.1 mg/dL Low 8.4 - 10. 4 mg/dL [facility] Chloride [Moles/Vol] 106 mmol/L 98 - 107 mmol/L [facility] CO2 [Moles/Vol] 30 mmol/L 22 - 30 mmol/L [facility] Creatinine [Mass/Vol] 0.7 mg/dL 0.52 - 1.25 mg/dL [facility] eGFR mL/min 60 - PINF mL/min [facility] EGFR IF NonAfrican Salvadorean 87.4 mL/min 60 - PINF mL/min [facility] Comment on above: KDIGO guidelines pro vide the following GFR categories: Stage GFR(ml/min/1.73 m2) Terms G1 >=90 Normal or high G2 60-89 Mildly decreased* G3a 45-59 Mildly to moderately decreased G3b 30-44 Moderately to severely decreased G4 15-29 Severely decreased G5 <15 Kidney failure *Relative to young adult level. In the absence of evidence of kidney damage, neither GFR category G1 nor G2 fulfill the criteria for CKD. The CKD-EPI equation is validated in individuals 18 years of age and older. Currently the best equation for estimating glomerular filtration rate (GFR) from serum creatinine in children is the Bedside Tapia equation. It is less accurate in patients with extremes of muscle mass, restriction of dietary protein, ingestion of creatine, extra-renal metabolism of creatinine, or treatment with medications that affect renal tubular creatinine secretion. Glucose [Mass/Vol] 118 mg/dL High 70 - 100 mg/dL [facility] Interpretation and review of laboratory results Abnormal [facility] Potassium [Moles/Vol] 4.1 mmol/L 3.5 - 5.1 mmol/L [facility] Sodium [Moles/Vol] 137 mmol/L 135 - 145 mmol/L [facility] Urea nitrogen (BldV) [Mass/Vol] 8 mg/dL Low 9 - 20 mg/dL [facility] Test Performed by [facility], [address] [place] [address] LAB [facility] CBC with Auto Differentialon 03-11-2022 Absolute Baso # 0.0 10*3/uL 0 - 0.2 10*3/uL [facility] Absolute Neut # 2.9 10*3/uL 1.8 - 7 10*3/uL [facility] Basophils/100 WBC (Bld) 0.6 % 0 - 2 % [facility] Eosinophils (Bld) [#/Vol] 0.2 10*3/uL 0 - 0.5 10*3/uL [facility] Eosinophils/100 WBC (Bld) 5.3 % 1 - 6 % [facility] Granulocytes/100 WBC (Bld) 62.2 % 40 - 80 % [facility] Hematocrit (Bld) [Volume fraction] 32.8 % Low 35 - 47 % [facility] Hemoglobin (Bld) [Mass/Vol] 11.7 g/dL 11.7 - 16 g/dL [facility] Interpretation and review of laboratory results Abnormal [facility] Lymphocytes (Bld) [#/Vol] 1.0 10*3/uL 1 - 4.3 10*3/uL [facility] Lymphocytes/100 WBC (Bld) 22.5 % 20 - 40 % [facility] MCH (RBC) [Entitic mass] 32.1 pg 26 - 34 pg [facility] MCHC (RBC) [Mass/Vol] 35.6 % 32 - 36 % [facility] MCV (RBC) [Entitic vol] 90.2 fL 79 - 98 fL [facility] Monocytes (Bld) [#/Vol] 0.4 10*3/uL 0 - 0.8 10*3/uL [facility] Monocytes/100 WBC (Bld) 9.4 % 2 - 10 % [facility] Platelet distribution width (Bld) [Ratio] 13.8 % 11.5 - 14.5 % [facility] Platelet mean volume (Bld) [Entitic vol] 8.2 fL 7.4 - 12.4 fL [facility] Comment on above: MPV is a calculated measurement using platelet volume ratio. Platelets (Bld) [#/Vol] 128 10*3/uL Low 140 - 440 10*3/uL [facility] RBC (Bld) [#/Vol] 3.63 10*6/uL Low 3.8 - 5.2 10*6/uL [facility] WBC (Bld) [#/Vol] 4.6 10*3/uL 3.6 - 10.7 10*3/uL [facility] Test Performed by [facility], [address] [place], [place] [id number] [place] [address] LAB [facility] CULTURE URINEon 03-11-2022 CULTURE URINE 1 Organism Klebsiell a pneumoniae >100,000 CFU/ml 1 Organism Antibiotic Result Intrp Ampicillin([facility]) R Cefazolin([facility]) <= 4 S Ceftriaxone([facility]) <= 1 S Cefepime([facility]) <= 1 S Aztreonam([facility]) <= 1 S Amoxicillin/Clavulanic Acid([facility]) <= 2 S Ampicillin/Sulbactam([facility]) 4 S Pip/Tazobactam([facility]) <= 4 S Meropenem([facility]) <= 0.25 S Ciprofloxacin([facility]) <= 0.25 S Trimeth/Sulfa([facility]) <= 20 S Nitrofurantoin([facility]) 64 I Gentamicin([facility]) <= 1 S Amikacin([facility]) <= 2 S Normal [facility] Comment on above: Performed By: #### P T/AP, BMP3, HEMDF #### [facility] [address] [place] [address] Culture, Urineon 03-11-2022 Bacteria identified Cx Nom (U) Klebsiella pneumoniae ss. pneumoniae Abnormal [facility] Bacteria identified Cx Nom (U) >100,000 CFU/ml [facility] Interpretation and review of laboratory results Abnormal [facility] Test Performed by [facility], [address] [place] [id number] [place] [address] LAB [facility] Glucose,Bedsideon 03-11-2022 Glucose [Mass/Vol] 140 mg/dL High 70-100 [facility] Comment on above: Result Comment: Test performed by glucose meter. Results may be 10%-15% lower than serum/plasma values. (CLIA ID [id number]) Performed By: #### P T/AP, BMP3, HEMDF #### [facility] [employer] [facility] [address] [place] [address] Glucose [Mass/Vol] 121 mg/dL High 70-100 [facility] Comment on above: Result Comment: Test performed by glucose meter. Results may be 10%-15% lower than serum/plasma values. (CLIA ID [id number]) Performed By: #### P T/AP, BMP3, HEMDF #### [facility] [address] [place] [address] Glucose [Mass/Vol] 127 mg/dL High 70-100 [facility] Comment on above: Result Comment: Test performed by glucose meter. Results may be 10%-15% lower than serum/plasma values. (CLIA ID [id number]) Performed By: #### P T/AP, BMP3, HEMDF #### [facility] [address] [place] [address] Glucose [Mass/Vol] 139 mg/dL High 70-100 [facility] Comment on above: Result Comment: Test performed by glucose meter. Results may be 10%-15% lower than serum/plasma values. (CLIA ID [id number]) Performed By: #### P T/AP, BMP3, HEMDF #### [facility] [address] [place] [address] Hemogram w/ Autodiffon 03-11 Abs Baso Cnt 0.0 10*3/uL Normal 0.0-0.2 [facility] Comment on above: Performed By: #### P T/AP, BMP3, HEMDF #### [facility] [address] [place] [address] Abs Neutrophile Cnt 2.9 10*3/uL Normal 1.8-7.0 [facility] Comment on above: Performed By: #### P T/AP, BMP3, HEMDF #### [facility] [address] [place] [address] Basophils/100 WBC (Bld) 0.6 % Normal 0.0-2.0 [facility] Comment on above: Performed By: #### P T/AP, BMP3, HEMDF #### [facility] [address] [place] [address] Eosinophils (Bld) [#/Vol] 0.2 10*3/uL Normal 0.0-0.5 [facility] Comment on above: Performed By: #### P T/AP, BMP3, HEMDF #### [facility] [address] [place] [address] Eosinophils/100 WBC (Bld) 5.3 % Normal 1.0-6.0 [facility] Comment on above: Performed By: #### P T/AP, BMP3, HEMDF #### [facility] [address] [place] [address] Erythrocyte distribution width (RBC) [Ratio] 13.8 % Normal 11.5-14.5 [facility] Comment on above: Performed By: #### P T/AP, BMP3, HEMDF #### [facility] [address] [place] [address] Granulocytes/100 WBC (Bld) 62.2 % Normal 40.0-80.0 [facility] Comment on above: Performed By: #### P T/AP, BMP3, HEMDF #### [facility] [address] [place] [address] Hematocrit (Bld) [Volume fraction] 32.8 % Low 35.0-47.0 [facility] Comment on above: Performed By: #### P T/AP, BMP3, HEMDF #### [facility] [address] [place] [address] Hemoglobin (Bld) [Mass/Vol] 11.7 g/dL Normal 11.7-16.0 [facility] Comment on above: Performed By: #### P T/AP, BMP3, HEMDF #### [facility] [address] [place] [address] Lymphocytes (Bld) [#/Vol] 1.0 10*3/uL Normal 1.0-4.3 [facility] Comment on above: Performed By: #### P T/AP, BMP3, HEMDF #### [facility] [address] [place] [address] Lymphocytes/100 WBC (Bld) 22.5 % Normal 20.0-40.0 [facility] Comment on above: Performed By: #### P T/AP, BMP3, HEMDF #### [facility] [address] [place] [address] MCH (RBC) [Entitic mass] 32.1 pg Normal 26.0-34.0 [facility] Comment on above: Performed By: #### P T/AP, BMP3, HEMDF #### [facility] [address] [place] [address] MCHC 35.6 % Normal 32.0-36.0 [facility] Comment on above: Performed By: #### P T/AP, BMP3, HEMDF #### [facility] [address] [place] [address] MCV (RBC) [Entitic vol] 90.2 fL Normal 79.0-98.0 [facility] Comment on above: Performed By: #### P T/AP, BMP3, HEMDF #### [facility] [address] [place] [address] Monocytes (Bld) [#/Vol] 0.4 10*3/uL Normal 0.0-0.8 [facility] Comment on above: Performed By: #### P T/AP, BMP3, HEMDF #### [facility] [address] [place] [address] Monocytes/100 WBC (Bld) 9.4 % Normal 2.0-10.0 [facility] Comment on above: Performed By: #### P T/AP, BMP3, HEMDF #### [facility] [address] [place] [address] Platelet mean volume (Bld) [Entitic vol] 8.2 fL Normal 7.4-12.4 [facility] Comment on above: Result Comment: MPV is a calculated measurement using platelet volume ratio. Performed By: #### P T/AP, BMP3, HEMDF #### [facility] [address] [place] [address] Platelets (Bld) [#/Vol] 128 10*3/uL Low 140-440 [facility] Comment on above: Performed By: #### P T/AP, BMP3, HEMDF #### [facility] [address] [place] [address] RBC (Bld) [#/Vol] 3.63 10*6/uL Low 3.80-5.20 [facility] Comment on above: Performed By: #### P T/AP, BMP3, HEMDF #### [facility] [address] [place] [address] WBC (Bld) [#/Vol] 4.6 10*3/uL Normal 3.6-10.7 [facility] Comment on above: Performed By: #### P T/AP, BMP3, HEMDF #### [facility] [address] [place] [address] POCT COVID-19, Antigenon SARS-CoV-2 Nucleocapsid Antigen Negative Negative NA [facility] Comment on above: A negative result does not rule out the possibility of SARS-CoV-2 infection. NAAT-based methods should be considered for symptomatic patients presenting greater than seven days after onset of symptoms. Method: Lateral flow immunoassay. Fact sheets for healthcare providers and patients can be found at the following sites: https://www.fda.gov/media/829787/download https://www.[employer].gov/media/730489/download Test Performed by [facility], [address] LAB [facility] POCT GlucoseOrdered By: Pedro Luis Mcleod on 03-11-2022 Glucose [Mass/Vol] 140 mg/dL High 70 - 100 mg/dL [facility] Comment on above: Test performed by gl ucose meter. Results may be 10%-15% lower than serum/plasma values. (CLIA ID [id number]) Interpretation and review of laboratory results Abnormal [facility] POCT Glucoseon 03-11-2022 Test Performed by [facility], [address] LAB Glucose [Mass/Vol] 121 mg/dL High 70 - 100 mg/dL [facility] Work Phone: Comment on above: Test performed by gl ucose meter. Results may be 10%-15% lower than serum/plasma values. (CLIA ID [id number]) Interpretation and review of laboratory results Abnormal [facility] Work Phone: Test Performed by [facility], [address] LAB [facility] Work Phone: Test Performed by [facility], [address] LAB Glucose [Mass/Vol] 139 mg/dL High 70 - 100 mg/dL [facility] Work Phone: Comment on above: Test performed by gl ucose meter. Results may be 10%-15% lower than serum/plasma values. (CLIA ID [id number]) Interpretation and review of laboratory results Abnormal [facility] Work Phone: Test Performed by [facility], [address], [place], [place] [address] [facility] LAB [facility] Work Phone: POCT GlucoseOrdered By: Mil Marie on 03-11-2022 Glucose [Mass/Vol] 127 mg/dL High 70 - 100 mg/dL [facility] Work Phone: Comment on above: Test performed by gl ucose meter. Results may be 10%-15% lower than serum/plasma values. (CLIA ID [id number]) Interpretation and review of laboratory results Abnormal [facility] Work Phone: [facility] Work Phone: PROTIME/INR & PTTon 03-11-20 22 INR Coag (Bld) [Relative time] 5.0 {INR} Critically high [facility] Comment on above: Recommended Anticoag ulant Therapy: SEE BELOW ----- INR of 2.0 - 3.0 : - Prophylaxis of Venous Thrombosis (high-risk surgery) - Treatment of Venous Thrombosis - Treatment of Pulmonary Embolism (Includes tissue heart valves, Acute Myocardial Infarction to prevent systemic embolism, Valvular Heart Disease, and Atrial Fibrillation) ----- INR of 2.5 - 3.5 : - Mechanical Prosthetic Valves (high risk) - If oral anticoagulant therapy is used to prevent Myocardial Infarction Interpretation and review of laboratory results Abnormal [facility] Test Performed by [facility], [address] [place], [address] LAB [facility] Protime AND APTTon 2 INR 5.0 Critically high 0.9-1.1 [facility] Comment on above: Result Comment: Rajiv mmended Anticoagulant Therapy: SEE BELOW ----- INR of 2.0 - 3.0 : - Prophylaxis of Venous Thrombosis (high-risk surgery) - Treatment of Venous Thrombosis - Treatment of Pulmonary Embolism (Includes tissue heart valves, Acute Myocardial Infarction to prevent systemic embolism, Valvular Heart Disease, and Atrial Fibrillation) ----- INR of 2.5 - 3.5 : - Mechanical Prosthetic Valves (high risk) - If oral anticoagulant therapy is used to prevent Myocardial Infarction Performed By: #### P T/AP, BMP3, HEMDF #### [facility] [address] [place] [address] aPTT Coag (Bld) [Time] 44.1 s High 20.0-30.5 [facility] Comment on above: NOTE: The therapeuti c time for Heparin anticoagulation, based on Xa activity inhibition, is an APTT of 46-80 seconds. Result Comment: NOTE : The therapeutic time for Heparin anticoagulation, based on Xa activity inhibition, is an APTT of 46-80 seconds. Performed By: #### P T/AP, BMP3, HEMDF #### [facility] [address] [place] [address] PT Coag (PPP) [Time] 48.7 s High 9.0-12.0 [facility] Comment on above: . Result Comment: . Performed By: #### P T/AP, BMP3, HEMDF #### [facility] [address] [place] [address] SARS-CoV-2 Antigenon SARS-CoV-2 Antigen Negative Normal Negative [facility] Comment on above: Result Comment: A negative result does not rule out the possibility of SARS-CoV-2 infection. NAAT-based methods should be considered for symptomatic patients presenting greater than seven days after onset of symptoms. Method: Lateral flow immunoassay. Fact sheets for healthcare providers and patients can be found at the following sites: https://www.fda.gov/media/312849/download https://www.fda.gov/media/977476/download Performed By: #### P T/AP, BMP3, HEMDF #### [facility] [address] [place] [address] Glucose,Bedsideon 03-10-2022 Glucose [Mass/Vol] 137 mg/dL High 70-100 [facility] Comment on above: Result Comment: Test performed by glucose meter. Results may be 10%-15% lower than serum/plasma values. (CLIA ID [id number]) Performed By: #### P T/AP, BMP3, HEMDF #### [facility] [address] [place] [address] Glucose [Mass/Vol] 98 mg/dL Normal 70-100 [facility] Comment on above: Result Comment: Test performed by glucose meter. Results may be 10%-15% lower than serum/plasma values. (CLIA ID [id number]) Performed By: #### P T/AP, BMP3, HEMDF #### [facility] [address] [place] [address] Glucose [Mass/Vol] 143 mg/dL High 70-100 [facility] Comment on above: Result Comment: Test performed by glucose meter. Results may be 10%-15% lower than serum/plasma values. (CLIA ID [id number]) Performed By: #### B GLU #### [facility] [address] [place] [address] Glucose [Mass/Vol] 170 mg/dL High 70-100 [facility] Comment on above: Result Comment: Test performed by glucose meter. Results may be 10%-15% lower than serum/plasma values. (CLIA ID [id number]) Performed By: #### B GLU #### [facility] [address] [place] [address] POCT GlucoseOrdered By: Tristin Mayers on 03-10-2022 Glucose [Mass/Vol] 137 mg/dL High 70 - 100 mg/dL [facility] Comment on above: Test performed by gl ucose meter. Results may be 10%-15% lower than serum/plasma values. (CLIA ID [id number]) Interpretation and review of laboratory results Abnormal [facility] POCT Glucoseon 03-10-2022 Test Performed by [facility], [address] [place], [place] [address] [facility] LAB Glucose [Mass/Vol] 98 mg/dL 70 - 100 mg/dL [facility] Work Phone: Comment on above: Test performed by gl ucose meter. Results may be 10%-15% lower than serum/plasma values. (CLIA ID [id number]) Test Performed by [facility], [address] LAB [facility] Work Phone: Test Performed by [facility], [address] LAB Glucose [Mass/Vol] 170 mg/dL High 70 - 100 mg/dL [facility] Work Phone: Comment on above: Test performed by gl ucose meter. Results may be 10%-15% lower than serum/plasma values. (CLIA ID [id number]) Interpretation and review of laboratory results Abnormal [facility] Work Phone: Test Performed by [facility], [address] LAB [facility] Work Phone: POCT GlucoseOrdered By: Mil Benitez on 03-10-2022 Glucose [Mass/Vol] 143 mg/dL High 70 - 100 mg/dL [facility] Work Phone: Comment on above: Test performed by gl ucose meter. Results may be 10%-15% lower than serum/plasma values. (CLIA ID [id number]) Interpretation and review of laboratory results Abnormal [facility] Work Phone: [facility] Work Phone: PROTIME/INR & PTTon 03-10-20 22 aPTT Coag (Bld) [Time] 40.6 s High 20 - 30.5 s [facility] Comment on above: NOTE: The therapeuti c time for Heparin anticoagulation, based on Xa activity inhibition, is an APTT of 46-80 seconds. INR Coag (Bld) [Relative time] 3.4 {INR} High [facility] Comment on above: Recommended Anticoag ulant Therapy: SEE BELOW ----- INR of 2.0 - 3.0 : - Prophylaxis of Venous Thrombosis (high-risk surgery) - Treatment of Venous Thrombosis - Treatment of Pulmonary Embolism (Includes tissue heart valves, Acute Myocardial Infarction to prevent systemic embolism, Valvular Heart Disease, and Atrial Fibrillation) ----- INR of 2.5 - 3.5 : - Mechanical Prosthetic Valves (high risk) - If oral anticoagulant therapy is used to prevent Myocardial Infarction Interpretation and review of laboratory results Abnormal [facility] PT Coag (PPP) [Time] 34 s High 9 - 12 s [facility] Comment on above: . Test Performed by [facility], [address] [place], [place] [id number] [place] [address] LAB [facility] Protime AND APTTon aPTT Coag (Bld) [Time] 40.6 s High 20.0-30.5 [facility] Comment on above: Result Comment: NOTE : The therapeutic time for Heparin anticoagulation, based on Xa activity inhibition, is an APTT of 46-80 seconds. Performed By: #### P T/AP, BMP3, HEMDF #### [facility] [address] [place] [address] INR 3.4 High 0.9-1.1 [facility] Comment on above: Result Comment: Rajiv mmended Anticoagulant Therapy: SEE BELOW ----- INR of 2.0 - 3.0 : - Prophylaxis of Venous Thrombosis (high-risk surgery) - Treatment of Venous Thrombosis - Treatment of Pulmonary Embolism (Includes tissue heart valves, Acute Myocardial Infarction to prevent systemic embolism, Valvular Heart Disease, and Atrial Fibrillation) ----- INR of 2.5 - 3.5 : - Mechanical Prosthetic Valves (high risk) - If oral anticoagulant therapy is used to prevent Myocardial Infarction Performed By: #### P T/AP, BMP3, HEMDF #### [facility] [address] [place] [address] PT Coag (PPP) [Time] 34.0 s High 9.0-12.0 [facility] Comment on above: Result Comment: . Performed By: #### P T/AP, BMP3, HEMDF #### [facility] [address] [place] [address] Basic Metabolic Panelon 02-20 Anion gap [Moles/Vol] 4 mmol/L Normal 3-13 [facility] Comment on above: Performed By: #### P T/AP, BMP3, HEMDF #### [facility] [address] [place] [address] Calcium [Mass/Vol] 7.7 mg/dL Low 8.4-10.4 [facility] Comment on above: Performed By: #### P T/AP, BMP3, HEMDF #### [facility] [address] [place] [address] CO2 [Moles/Vol] 25 mmol/L Normal 22-30 [facility] Comment on above: Performed By: #### P T/AP, BMP3, HEMDF #### [facility] [address] [place] [address] Glucose [Mass/Vol] 84 mg/dL Normal 70-100 [facility] Comment on above: Performed By: #### P T/AP, BMP3, HEMDF #### [facility] [address] [place] [address] Urea nitrogen [Mass/Vol] 14 mg/dL Normal 9-20 [facility] Comment on above: Performed By: #### P T/AP, BMP3, HEMDF #### [facility] [address] [place] [address] Creatinine [Mass/Vol] 0.85 mg/dL Normal 0.52-1.25 [facility] Comment on above: Performed By: #### P T/AP, BMP3, HEMDF #### [facility] [address] [place] [address] GFR/1.73 sq M.predicted among blacks MDRD (S/P/Bld) [Vol rate/Area] 80.1 mL/min/{1.73_m2} Normal >60 [facility] Comment on above: Performed By: #### P T/AP, BMP3, HEMDF #### [facility] [address] [place] [address] GFR/1.73 sq M.predicted among non-blacks MDRD (S/P/Bld) [Vol rate/Area] 69.1 mL/min/{1.73_m2} Normal >60 [facility] Comment on above: Result Comment: KDIG O guidelines provide the following GFR categories: Stage GFR(ml/min/1.73 m2) Terms G1 >=90 Normal or high G2 60-89 Mildly decreased* G3a 45-59 Mildly to moderately decreased G3b 30-44 Moderately to severely decreased G4 15-29 Severely decreased G5 <15 Kidney failure *Relative to young adult level. In the absence of evidence of kidney damage, neither GFR category G1 nor G2 fulfill the criteria for CKD. The CKD-EPI equation is validated in individuals 18 years of age and older. Currently the best equation for estimating glomerular filtration rate (GFR) from serum creatinine in children is the Bedside Tapia equation. It is less accurate in patients with extremes of muscle mass, restriction of dietary protein, ingestion of creatine, extra-renal metabolism of creatinine, or treatment with medications that affect renal tubular creatinine secretion. Performed By: #### P T/AP, BMP3, HEMDF #### [facility] [address] [place] [address] Chloride [Moles/Vol] 106 mmol/L Normal 98-107 [facility] Comment on above: Performed By: #### P T/AP, BMP3, HEMDF #### [facility] [address] [place] [address] Potassium [Moles/Vol] 3.9 mmol/L Normal 3.5-5.1 [facility] Comment on above: Performed By: #### P T/AP, BMP3, HEMDF #### [facility] [address] [place] [address] Sodium [Moles/Vol] 135 mmol/L Normal 135-145 [facility] Comment on above: Performed By: #### P T/AP, BMP3, HEMDF #### [facility] [address] [place] [address] Basic Metabolic Panel w/ Ref uriel to MGon 03-09-2022 Anion gap [Moles/Vol] 4 mmol/L 3 - 13 mmol/L [facility] Calcium [Mass/Vol] 7.7 mg/dL Low 8.4 - 10. 4 mg/dL [facility] Chloride [Moles/Vol] 106 mmol/L 98 - 107 mmol/L [facility] CO2 [Moles/Vol] 25 mmol/L 22 - 30 mmol/L [facility] Creatinine [Mass/Vol] 0.85 mg/dL 0.52 - 1.25 mg/dL [facility] EGFR IF NonAfrican Salvadorean 69.1 mL/min 60 - PINF mL/min [facility] Comment on above: KDIGO guidelines pro vide the following GFR categories: Stage GFR(ml/min/1.73 m2) Terms G1 >=90 Normal or high G2 60-89 Mildly decreased* G3a 45-59 Mildly to moderately decreased G3b 30-44 Moderately to severely decreased G4 15-29 Severely decreased G5 <15 Kidney failure *Relative to young adult level. In the absence of evidence of kidney damage, neither GFR category G1 nor G2 fulfill the criteria for CKD. The CKD-EPI equation is validated in individuals 18 years of age and older. Currently the best equation for estimating glomerular filtration rate (GFR) from serum creatinine in children is the Bedside Tapia equation. It is less accurate in patients with extremes of muscle mass, restriction of dietary protein, ingestion of creatine, extra-renal metabolism of creatinine, or treatment with medications that affect renal tubular creatinine secretion. GFR/1.73 sq M.predicted among blacks MDRD (S/P/Bld) [Vol rate/Area] 80.1 mL/min/{1.73_m2} 60 - PINF mL/min [facility] Glucose [Mass/Vol] 84 mg/dL 70 - 100 mg/dL [facility] Interpretation and review of laboratory results Abnormal [facility] Potassium [Moles/Vol] 3.9 mmol/L 3.5 - 5.1 mmol/L [facility] Sodium [Moles/Vol] 135 mmol/L 135 - 145 mmol/L [facility] Urea nitrogen (BldV) [Mass/Vol] 14 mg/dL 9 - 20 mg/dL [facility] Test Performed by [facility], [address] LAB [facility] CBC with Auto Differentialon 03-09-2022 Absolute Baso # 0.0 10*3/uL 0 - 0.2 10*3/uL [facility] Absolute Neut # 4.1 10*3/uL 1.8 - 7 10*3/uL [facility] Basophils/100 WBC (Bld) 0.6 % 0 - 2 % [facility] Eosinophils (Bld) [#/Vol] 0.1 10*3/uL 0 - 0.5 10*3/uL [facility] Eosinophils/100 WBC (Bld) 1.6 % 1 - 6 % [facility] Granulocytes/100 WBC (Bld) 74.6 % 40 - 80 % [facility] Hematocrit (Bld) [Volume fraction] 31.8 % Low 35 - 47 % [facility] Hemoglobin (Bld) [Mass/Vol] 11.2 g/dL Low 11.7 - 16 g/dL [facility] Interpretation and review of laboratory results Abnormal [facility] Lymphocytes (Bld) [#/Vol] 0.9 10*3/uL Low 1 - 4.3 10*3/uL [facility] Lymphocytes/100 WBC (Bld) 16.3 % Low 20 - 40 % [facility] MCH (RBC) [Entitic mass] 32.2 pg 26 - 34 pg [facility] MCHC (RBC) [Mass/Vol] 35.2 % 32 - 36 % [facility] MCV (RBC) [Entitic vol] 91.4 fL 79 - 98 fL [facility] Monocytes (Bld) [#/Vol] 0.4 10*3/uL 0 - 0.8 10*3/uL [facility] Monocytes/100 WBC (Bld) 6.9 % 2 - 10 % [facility] Platelet distribution width (Bld) [Ratio] 13.9 % 11.5 - 14.5 % [facility] Platelet mean volume (Bld) [Entitic vol] 8.4 fL 7.4 - 12.4 fL [facility] Comment on above: MPV is a calculated measurement using platelet volume ratio. Platelets (Bld) [#/Vol] 102 10*3/uL Low 140 - 440 10*3/uL [facility] RBC (Bld) [#/Vol] 3.48 10*6/uL Low 3.8 - 5.2 10*6/uL [facility] WBC (Bld) [#/Vol] 5.5 10*3/uL 3.6 - 10.7 10*3/uL [facility] Test Performed by [facility], [address], [place], [place] [id number] [place] [address] LAB [facility] Glucose,Bedsideon 03-09-2022 Glucose [Mass/Vol] 186 mg/dL High 70-100 [facility] Comment on above: Result Comment: Test performed by glucose meter. Results may be 10%-15% lower than serum/plasma values. (CLIA ID [id number]) Performed By: #### P T/AP, BMP3, HEMDF #### [facility] [address] [place] [address] Glucose [Mass/Vol] 139 mg/dL High 70-100 [facility] [place] Comment on above: Result Comment: Test performed by glucose meter. Results may be 10%-15% lower than serum/plasma values. (CLIA ID [id number]) Performed By: #### P T/AP, BMP3, HEMDF #### [facility] [place] [address] [place] [address] Glucose [Mass/Vol] 160 mg/dL High 70-100 [facility] [place] Comment on above: Result Comment: Test performed by glucose meter. Results may be 10%-15% lower than serum/plasma values. (CLIA ID [id number]) Performed By: #### P T/AP, BMP3, HEMDF #### [facility] [place] [address] [place] [address] Glucose [Mass/Vol] 96 mg/dL Normal 70-100 [facility] [place] Comment on above: Result Comment: Test performed by glucose meter. Results may be 10%-15% lower than serum/plasma values. (CLIA ID [id number]) Performed By: #### B GLU #### [facility] [place] [address] [place] [address] Hemoglobin A1Con 03-09-2022 Glucose [Mass/Vol] 151 mg/dL Normal [facility] [place] Comment on above: Performed By: #### B GLU #### [facility] [place] [address] [place] [address] HbA1c (Bld) [Mass fraction] 6.9 % Abnormal [facility] [place] Comment on above: Result Comment: Norm al less than 5.7% Prediabetes 5.7% to 6.4% Diabetes 6.5% or higher --HgbA1C levels may not be accurate in patients who have renal disease, received recent blood transfusions, are anemic, or who have dyshemoglobinemia. Performed By: #### B GLU #### [facility] [place] [address] [place] [address] Hemoglobin A1con 03-09-2022 HbA1c (Bld) [Mass fraction] 6.9 % Abnormal [facility] Comment on above: Normal less than 5.7 % Prediabetes 5.7% to 6.4% Diabetes 6.5% or higher --HgbA1C levels may not be accurate in patients who have renal disease, received recent blood transfusions, are anemic, or who have dyshemoglobinemia. Interpretation and review of laboratory results Abnormal [facility] Magnesium [Mass/Vol] 151 mg/dL [facility] Test Performed by [facility], [address] [place] [address] [facility] Hemogram w/ Autodiffon 03-09 Abs Baso Cnt 0.0 10*3/uL Normal 0.0-0.2 [facility] Comment on above: Performed By: #### P T/AP, BMP3, HEMDF #### [facility] [place] [address] [place] [place] [address] Abs Neutrophile Cnt 4.1 10*3/uL Normal 1.8-7.0 [facility] Comment on above: Performed By: #### P T/AP, BMP3, HEMDF #### [facility] [address] [place] [place] [address] Basophils/100 WBC (Bld) 0.6 % Normal 0.0-2.0 [facility] Comment on above: Performed By: #### P T/AP, BMP3, HEMDF #### [facility] [address] [place] [place] [address] Eosinophils (Bld) [#/Vol] 0.1 10*3/uL Normal 0.0-0.5 [facility] Comment on above: Performed By: #### P T/AP, BMP3, HEMDF #### [facility] [address] [place] [place] [address] Eosinophils/100 WBC (Bld) 1.6 % Normal 1.0-6.0 [facility] Comment on above: Performed By: #### P T/AP, BMP3, HEMDF #### [facility] [address] [place] [address] Erythrocyte distribution width (RBC) [Ratio] 13.9 % Normal 11.5-14.5 [facility] Comment on above: Performed By: #### P T/AP, BMP3, HEMDF #### [facility] [address] [place] [address] Granulocytes/100 WBC (Bld) 74.6 % Normal 40.0-80.0 [facility] Comment on above: Performed By: #### P T/AP, BMP3, HEMDF #### [facility] [address] [place] [address] Hematocrit (Bld) [Volume fraction] 31.8 % Low 35.0-47.0 [facility] Comment on above: Performed By: #### P T/AP, BMP3, HEMDF #### [facility] [address] [place] [address] Hemoglobin (Bld) [Mass/Vol] 11.2 g/dL Low 11.7-16.0 [facility] Comment on above: Performed By: #### P T/AP, BMP3, HEMDF #### [facility] [address] [place] [address] Lymphocytes (Bld) [#/Vol] 0.9 10*3/uL Low 1.0-4.3 [facility] Comment on above: Performed By: #### P T/AP, BMP3, HEMDF #### [facility] [address] [place] [address] Lymphocytes/100 WBC (Bld) 16.3 % Low 20.0-40.0 [facility] Comment on above: Performed By: #### P T/AP, BMP3, HEMDF #### [facility] [address] [place] [address] MCH (RBC) [Entitic mass] 32.2 pg Normal 26.0-34.0 [facility] Comment on above: Performed By: #### P T/AP, BMP3, HEMDF #### [facility] [address] [place] [address] MCHC 35.2 % Normal 32.0-36.0 [facility] Comment on above: Performed By: #### P T/AP, BMP3, HEMDF #### [facility] [address] [place] [address] MCV (RBC) [Entitic vol] 91.4 fL Normal 79.0-98.0 [facility] Comment on above: Performed By: #### P T/AP, BMP3, HEMDF #### [facility] [address] [place] [address] Monocytes (Bld) [#/Vol] 0.4 10*3/uL Normal 0.0-0.8 [facility] Comment on above: Performed By: #### P T/AP, BMP3, HEMDF #### [facility] [address] [place] [address] Monocytes/100 WBC (Bld) 6.9 % Normal 2.0-10.0 [facility] Comment on above: Performed By: #### P T/AP, BMP3, HEMDF #### [facility] [address] [place] [address] Platelet mean volume (Bld) [Entitic vol] 8.4 fL Normal 7.4-12.4 [facility] Comment on above: Result Comment: MPV is a calculated measurement using platelet volume ratio. Performed By: #### P T/AP, BMP3, HEMDF #### [facility] [address] [place] [address] Platelets (Bld) [#/Vol] 102 10*3/uL Low 140-440 [facility] Comment on above: Performed By: #### P T/AP, BMP3, HEMDF #### [facility] [address] [place] [address] RBC (Bld) [#/Vol] 3.48 10*6/uL Low 3.80-5.20 [facility] Comment on above: Performed By: #### P T/AP, BMP3, HEMDF #### [facility] [address] [place] [address] WBC (Bld) [#/Vol] 5.5 10*3/uL Normal 3.6-10.7 [facility] Comment on above: Performed By: #### P T/AP, BMP3, HEMDF #### [facility] [address] [place] [address] POCT GlucoseOrdered By: Blayne Villalobos on 03-09-2022 Glucose [Mass/Vol] 186 mg/dL High 70 - 100 mg/dL [facility] Work Phone: Comment on above: Test performed by gl ucose meter. Results may be 10%-15% lower than serum/plasma values. (CLIA ID [id number]) Interpretation and review of laboratory results Abnormal [facility] Work Phone: [facility] Work Phone: POCT Glucoseon 03-09-2022 Test Performed by [facility], [address] LAB Glucose [Mass/Vol] 139 mg/dL High 70 - 100 mg/dL [facility] Work Phone: Comment on above: Test performed by gl ucose meter. Results may be 10%-15% lower than serum/plasma values. (CLIA ID [id number]) Interpretation and review of laboratory results Abnormal [facility] Work Phone: Test Performed by [facility], [address] LAB [facility] Work Phone: Test Performed by [facility], [address] LAB Glucose [Mass/Vol] 96 mg/dL 70 - 100 mg/dL [facility] Work Phone: Comment on above: Test performed by gl ucose meter. Results may be 10%-15% lower than serum/plasma values. (CLIA ID [id number]) Test Performed by [facility], [address] LAB [facility] Work Phone: POCT GlucoseOrdered By: Ines Choi on 03-09-2022 Glucose [Mass/Vol] 160 mg/dL High 70 - 100 mg/dL [facility] Comment on above: Test performed by gl ucose meter. Results may be 10%-15% lower than serum/plasma values. (CLIA ID [id number]) Interpretation and review of laboratory results Abnormal [facility] PROTIME/INR & PTTon 03-09-20 22 aPTT Coag (Bld) [Time] 40.6 s High 20 - 30.5 s [facility] Comment on above: NOTE: The therapeuti c time for Heparin anticoagulation, based on Xa activity inhibition, is an APTT of 46-80 seconds. INR Coag (Bld) [Relative time] 2.4 {INR} High [facility] Comment on above: Recommended Anticoag ulant Therapy: SEE BELOW ----- INR of 2.0 - 3.0 : - Prophylaxis of Venous Thrombosis (high-risk surgery) - Treatment of Venous Thrombosis - Treatment of Pulmonary Embolism (Includes tissue heart valves, Acute Myocardial Infarction to prevent systemic embolism, Valvular Heart Disease, and Atrial Fibrillation) ----- INR of 2.5 - 3.5 : - Mechanical Prosthetic Valves (high risk) - If oral anticoagulant therapy is used to prevent Myocardial Infarction Interpretation and review of laboratory results Abnormal [facility] PT Coag (PPP) [Time] 24.5 s High 9 - 12 s [facility] Comment on above: . Test Performed by [facility], [address] LAB [facility] Protime AND APTTon 2 aPTT Coag (Bld) [Time] 40.6 s High 20.0-30.5 [facility] Comment on above: Result Comment: NOTE : The therapeutic time for Heparin anticoagulation, based on Xa activity inhibition, is an APTT of 46-80 seconds. Performed By: #### P T/AP, BMP3, HEMDF #### [facility] [address] [place] [address] INR 2.4 High 0.9-1.1 [facility] Comment on above: Result Comment: Rajiv mmended Anticoagulant Therapy: SEE BELOW ----- INR of 2.0 - 3.0 : - Prophylaxis of Venous Thrombosis (high-risk surgery) - Treatment of Venous Thrombosis - Treatment of Pulmonary Embolism (Includes tissue heart valves, Acute Myocardial Infarction to prevent systemic embolism, Valvular Heart Disease, and Atrial Fibrillation) ----- INR of 2.5 - 3.5 : - Mechanical Prosthetic Valves (high risk) - If oral anticoagulant therapy is used to prevent Myocardial Infarction Performed By: #### P T/AP, BMP3, HEMDF #### [facility] [address] [place] [address] PT Coag (PPP) [Time] 24.5 s High 9.0-12.0 [facility] Comment on above: Result Comment: . Performed By: #### P T/AP, BMP3, HEMDF #### [facility] [address] [place] [address] TSHon 03-09-2022 TSH Qn 3.493 u[IU]/mL 0.465 - 4.68 u[IU]/mL [facility] Test Performed by [facility], [address] [place], [place] [id number] [place] [address] LAB [facility] Thyroid Stim. Hormoneon 02-20 Thyroid Stim. Hormone 3.493 u[IU]/mL Normal 0.465-4.68 0 [facility] Comment on above: Performed By: #### B GLU #### [facility] [address] [place] [address] Vancomycinon 03-09-2022 Vancomycin 12.3 ug/mL Low 15.0-20.0 [facility] Comment on above: Result Comment: . Performed By: #### P T/AP, BMP3, HEMDF #### [facility] [address] [place] [address] Vancomycin Level, Randomon 0 03-09-2022 Interpretation and review of laboratory results Abnormal [facility] Vancomycin 12.3 ug/mL Low 15 - 20 ug/mL [facility] Comment on above: . Test Performed by [facility], [address] [place], [place] [id number] [place] [address] LAB [facility] Basic Metabolic Panelon 02-20 Anion gap [Moles/Vol] 4 mmol/L Normal 3-13 [facility] Comment on above: Performed By: #### P T/AP, BMP3, HEMDF #### [facility] [address] [place] [place] [address] Calcium [Mass/Vol] 8.4 mg/dL Normal 8.4-10.4 [facility] Comment on above: Performed By: #### P T/AP, BMP3, HEMDF #### [facility] [address] [place] [address] CO2 [Moles/Vol] 27 mmol/L Normal 22-30 [facility] Comment on above: Performed By: #### P T/AP, BMP3, HEMDF #### [facility] [address] [place] [address] Creatinine [Mass/Vol] 0.95 mg/dL Normal 0.52-1.25 [facility] Comment on above: Performed By: #### P T/AP, BMP3, HEMDF #### [facility] [address] [place] [address] GFR/1.73 sq M.predicted among blacks MDRD (S/P/Bld) [Vol rate/Area] 70.0 mL/min/{1.73_m2} Normal >60 [facility] Comment on above: Performed By: #### P T/AP, BMP3, HEMDF #### [facility] [address] [place] [address] GFR/1.73 sq M.predicted among non-blacks MDRD (S/P/Bld) [Vol rate/Area] 60.4 mL/min/{1.73_m2} Normal >60 [facility] Comment on above: Result Comment: KDIG O guidelines provide the following GFR categories: Stage GFR(ml/min/1.73 m2) Terms G1 >=90 Normal or high G2 60-89 Mildly decreased* G3a 45-59 Mildly to moderately decreased G3b 30-44 Moderately to severely decreased G4 15-29 Severely decreased G5 <15 Kidney failure *Relative to young adult level. In the absence of evidence of kidney damage, neither GFR category G1 nor G2 fulfill the criteria for CKD. The CKD-EPI equation is validated in individuals 18 years of age and older. Currently the best equation for estimating glomerular filtration rate (GFR) from serum creatinine in children is the Bedside Tapia equation. It is less accurate in patients with extremes of muscle mass, restriction of dietary protein, ingestion of creatine, extra-renal metabolism of creatinine, or treatment with medications that affect renal tubular creatinine secretion. Performed By: #### P T/AP, BMP3, HEMDF #### [facility] [address] [place] [place] [address] Glucose [Mass/Vol] 117 mg/dL High 70-100 [facility] Comment on above: Performed By: #### P T/AP, BMP3, HEMDF #### [facility] [address] [place] [address] Urea nitrogen [Mass/Vol] 16 mg/dL Normal 9-20 [facility] Comment on above: Performed By: #### P T/AP, BMP3, HEMDF #### [facility] [address] [place] [address] Chloride [Moles/Vol] 102 mmol/L Normal 98-107 [facility] Comment on above: Performed By: #### P T/AP, BMP3, HEMDF #### [facility] [address] [place] [address] Potassium [Moles/Vol] 4.5 mmol/L Normal 3.5-5.1 [facility] Comment on above: Performed By: #### P T/AP, BMP3, HEMDF #### [facility] [address] [place] [address] Sodium [Moles/Vol] 133 mmol/L Low 135-145 [facility] Comment on above: Performed By: #### P T/AP, BMP3, HEMDF #### [facility] [address] [place] [address] Anion gap [Moles/Vol] 4 mmol/L 3 - 13 mmol/L [facility] Calcium [Mass/Vol] 8.4 mg/dL 8.4 - 10. 4 mg/dL [facility] Chloride [Moles/Vol] 102 mmol/L 98 - 107 mmol/L [facility] CO2 [Moles/Vol] 27 mmol/L 22 - 30 mmol/L [facility] Creatinine [Mass/Vol] 0.95 mg/dL 0.52 - 1.25 mg/dL [facility] EGFR IF NonAfrican Salvadorean 60.4 mL/min 60 - PINF mL/min [facility] Comment on above: KDIGO guidelines pro vide the following GFR categories: Stage GFR(ml/min/1.73 m2) Terms G1 >=90 Normal or high G2 60-89 Mildly decreased* G3a 45-59 Mildly to moderately decreased G3b 30-44 Moderately to severely decreased G4 15-29 Severely decreased G5 <15 Kidney failure *Relative to young adult level. In the absence of evidence of kidney damage, neither GFR category G1 nor G2 fulfill the criteria for CKD. The CKD-EPI equation is validated in individuals 18 years of age and older. Currently the best equation for estimating glomerular filtration rate (GFR) from serum creatinine in children is the Bedside Tapia equation. It is less accurate in patients with extremes of muscle mass, restriction of dietary protein, ingestion of creatine, extra-renal metabolism of creatinine, or treatment with medications that affect renal tubular creatinine secretion. GFR/1.73 sq M.predicted among blacks MDRD (S/P/Bld) [Vol rate/Area] 70.0 mL/min/{1.73_m2} 60 - PINF mL/min [facility] Glucose [Mass/Vol] 117 mg/dL High 70 - 100 mg/dL [facility] Interpretation and review of laboratory results Abnormal [facility] Potassium [Moles/Vol] 4.5 mmol/L 3.5 - 5.1 mmol/L [facility] Sodium [Moles/Vol] 133 mmol/L Low 135 - 145 mmol/L [facility] Urea nitrogen (BldV) [Mass/Vol] 16 mg/dL 9 - 20 mg/dL [facility] Test Performed by [facility], [address] [place] [id number] [place] [address] LAB [facility] CBC with Auto Differentialon 03-08-2022 Absolute Baso # 0.0 10*3/uL 0 - 0.2 10*3/uL [facility] Absolute Neut # 7.5 10*3/uL High 1.8 - 7 10*3/uL [facility] Basophils/100 WBC (Bld) 0.1 % 0 - 2 % [facility] Eosinophils (Bld) [#/Vol] 0.0 10*3/uL 0 - 0.5 10*3/uL [facility] Eosinophils/100 WBC (Bld) 0.2 % Low 1 - 6 % [facility] Granulocytes/100 WBC (Bld) 86.4 % High 40 - 80 % [facility] Hematocrit (Bld) [Volume fraction] 36.9 % 35 - 47 % [facility] Hemoglobin (Bld) [Mass/Vol] 12.6 g/dL 11.7 - 16 g/dL [facility] Interpretation and review of laboratory results Abnormal [facility] Lymphocytes (Bld) [#/Vol] 0.7 10*3/uL Low 1 - 4.3 10*3/uL [facility] Lymphocytes/100 WBC (Bld) 8.3 % Low 20 - 40 % [facility] MCH (RBC) [Entitic mass] 31.9 pg 26 - 34 pg [facility] MCHC (RBC) [Mass/Vol] 34.3 % 32 - 36 % [facility] MCV (RBC) [Entitic vol] 93.2 fL 79 - 98 fL [facility] Monocytes (Bld) [#/Vol] 0.4 10*3/uL 0 - 0.8 10*3/uL [facility] Monocytes/100 WBC (Bld) 5.0 % 2 - 10 % [facility] Platelet distribution width (Bld) [Ratio] 14.1 % 11.5 - 14.5 % [facility] Platelet mean volume (Bld) [Entitic vol] 8.9 fL 7.4 - 12.4 fL [facility] Comment on above: MPV is a calculated measurement using platelet volume ratio. Platelets (Bld) [#/Vol] 132 10*3/uL Low 140 - 440 10*3/uL [facility] RBC (Bld) [#/Vol] 3.96 10*6/uL 3.8 - 5.2 10*6/uL [facility] WBC (Bld) [#/Vol] 8.7 10*3/uL 3.6 - 10.7 10*3/uL [facility] Test Performed by [facility], [address] LAB [facility] CR Ankle 3+ Views Lefton CR Ankle 3+ Views Left Patient Name: RANDOLPH HUNTER Diagnostic Radiology ACCESSION EXAM DATE/TIME PROCEDURE ORDERING PROVIDER [id number] 03/08/2022 16:53 EDT CR Ankle 3+ Views Left JOHN LEZAMA LOUANN B CPT code 72318 Reason For Exam (CR Ankle 3+ Views Left) concern for OM Report LEFT ANKLE: CLINICAL INDICATION: Concern for osteomyelitis. TECHNIQUE: AP, Lat and Oblique views COMPARISON: None. FINDINGS: There is no evidence for fracture or dislocation. Ankle mortise is preserved. No osseous erosion or periostitis. No bone lesion. Ankle soft tissue swelling is more pronounced laterally. Posterior tibial and plantar arterial atherosclerotic calcification. IMPRESSION: No radiographic evidence of osteomyelitis. Peripheral arterial atherosclerotic changes. Report Dictated on Workstation: [employer] Final Dictating Physician: HARPER ANTONIO DO, I Signed Date and Time: 03/08/2022 5:15 pm Signed by: HARPER ANTONIO DO, I Transcribed Date and Time: 03/08/2022 5:16 Normal [facility] Complete Urinalysison 2021 Appearance (U) Turbid Abnormal Clear [facility] Comment on above: Result Comment: . Performed By: #### P T/AP, BMP3, HEMDF #### [facility] [address] [place] [address] Bacteria Loaded Abnormal Negative [facility] Comment on above: Result Comment: . Performed By: #### P T/AP, BMP3, HEMDF #### [facility] [address] [place] [address] Bilirubin,Urine Negative Normal Negative [facility] Comment on above: Result Comment: . Performed By: #### P T/AP, BMP3, HEMDF #### [facility] [address] [place] [address] Color (U) Light-Yellow Normal Lt. Yellow [facility] Comment on above: Result Comment: . Performed By: #### P T/AP, BMP3, HEMDF #### [facility] [address] [place] [address] Glucose Ql (U) Normal Normal Normal (<70) [facility] Comment on above: Result Comment: . Performed By: #### P T/AP, BMP3, HEMDF #### [facility] [address] [place] [address] Ketone,Urine Negative Normal Negative [facility] Comment on above: Result Comment: . Performed By: #### P T/AP, BMP3, HEMDF #### [facility] [address] [place] [address] Leukocytes,Urine 500 Elvi/uL Abnormal Negative [facility] Comment on above: Result Comment: . Performed By: #### P T/AP, BMP3, HEMDF #### [facility] [address] [place] [address] Mucous Threads Few Normal Negative [facility] Comment on above: Result Comment: . Performed By: #### P T/AP, BMP3, HEMDF #### [facility] [address] [place] [address] Nitrites,Urine Positive Abnormal Negative [facility] Comment on above: Result Comment: . Performed By: #### P T/AP, BMP3, HEMDF #### [facility] [address] [place] [address] Non-Squamous Epithelial < 1 Abnormal Negative [facility] Comment on above: Result Comment: . Performed By: #### P T/AP, BMP3, HEMDF #### [facility] [address] [place] [address] Occult Blood,Urine 0.06 mg/dL Abnormal Negative [facility] Comment on above: Result Comment: . Performed By: #### P T/AP, BMP3, HEMDF #### [facility] [address] [place] [address] pH,Urine 6.0 Normal 5.0-8.0 [facility] Comment on above: Result Comment: . Performed By: #### P T/AP, BMP3, HEMDF #### [facility] [address] [place] [address] Protein (U) [Mass/Vol] 20 mg/dL Abnormal Negative [facility] Comment on above: Result Comment: . Performed By: #### P T/AP, BMP3, HEMDF #### [facility] [address] [place] [address] RBC, Urine 3 - 5 Abnormal 0-2 [facility] Comment on above: Result Comment: . Performed By: #### P T/AP, BMP3, HEMDF #### [facility] [address] [place] [address] Specific [place],Urine 1.014 Normal 1.005 - 1.030 [facility] Comment on above: Result Comment: . Performed By: #### P T/AP, BMP3, HEMDF #### [facility] [address] [place] [address] Squamous Epithelial 0 - 2 Normal 3-5 [facility] Comment on above: Result Comment: . Performed By: #### P T/AP, BMP3, HEMDF #### [facility] [address] [place] [address] Urobilinogen,Urine Normal Normal Normal (0-1) [facility] Comment on above: Result Comment: . Performed By: #### P T/AP, BMP3, HEMDF #### [facility] [address] [place] [address] WBC, Urine 51 - 100 Abnormal 0-5 [facility] Comment on above: Result Comment: . Performed By: #### P T/AP, BMP3, HEMDF #### [facility] [address] [place] [address] ED Provider Noteon ED Provider Note [facility] 1E MED SURG EMERGENCY DEPARTMENT ENCOUNTER Pt Name: Randolph Hunter Birthdate 1950 Date of evaluation: 03/08/2022 Provider: Александр Jha MD CHIEF COMPLAINT Chief Complaint Patient presents with Extremity Weakness Skin Ulcer L foot HISTORY OF PRESENT ILLNESS (Location/Symptom, Timing/Onset, Context/Setting, Quality, Duration, Modifying Factors, Severity) Note limiting factors. I wore a kn95 mask for the entirety of this encounter. HPI Randolph Hunter is a 71 y.o. female who presents to the emergency department For left lower extremity cellulitis. She states that she has frequent cellulitis of that left lower extremity but often causes a headache, that she has now that she states is gradual. She endorses a fever at home. She endorses weakness with her cellulitis and states that she did have a fall at her [place] [facility] this morning but did not hit her head, as one of the caretakers was able to catch her. Nursing Notes were reviewed. REVIEW OF SYSTEMS (2+ for level 4; 10+ for level 5) Review of Systems 14 systems reviewed and otherwise acutely negative except as in the history of present illness. PAST MEDICAL HISTORY Past Medical History: Diagnosis Date Anemia of chronic disease Asthma B12 deficiency Brachial neuritis CAD (coronary artery disease) Cerebral palsy (HCC) Depression Fatty liver Frequent falls HLD (hyperlipidemia) Hyperparathyroidism (HCC) Migraine headache with aura Neuropathy Obesity Pulmonary embolism (HCC) Systemic lupus erythematosus (HCC) Type 2 diabetes mellitus (HCC) SURGICAL HISTORY History reviewed. No pertinent surgical history. CURRENT MEDICATIONS Discharge Medication List as of 03/12/2022 5:07 PM CONTINUE these medications which have NOT CHANGED Details hydroxychloroquine (PLAQUENIL) 200 MG tablet Take 200 mg by mouth 2 times dailyHistorical Med aspirin 81 MG EC tablet Take 81 mg by mouth dailyHistorical Med buPROPion (WELLBUTRIN SR) 150 MG extended release tablet Take 150 mg by mouth dailyHistorical Med calcium-vitamin D (OSCAL-500) 500-200 MG-UNIT per tablet Take 1 tablet by mouth daily CALCIUM CARBONATE 600MG W/ VITAMIN T2Irpbkxodsf Med cyanocobalamin 1000 MCG/ML injection Inject 1,000 mcg into the muscle every 30 days 15Historical Med fluticasone (FLONASE) 50 MCG/ACT nasal spray 2 sprays by Each Nostril route dailyHistorical Med levothyroxine (SYNTHROID) 150 MCG tablet Take 150 mcg by mouth DailyHistorical Med Magnesium Oxide 500 MG TABS Take by mouthHistorical Med melatonin 10 MG CAPS capsule Take 10 mg by mouth nightlyHistorical Med metFORMIN (GLUCOPHAGE) 500 MG tablet Take 500 mg by mouth 2 times daily (with meals)Historical Med metoprolol succinate (TOPROL XL) 100 MG extended release tablet Take 100 mg by mouth at bedtimeHistorical Med Multiple Vitamins-Minerals (THERAPEUTIC MULTIVITAMIN-MINERALS) tablet Take 1 tablet by mouth dailyHistorical Med ramipril (ALTACE) 5 MG capsule Take 5 mg by mouth dailyHistorical Med traZODone (DESYREL) 50 MG tablet Take 50 mg by mouth nightlyHistorical Med Cholecalciferol (VITAMIN D3) 50 MCG (2000 UT) CAPS Take by mouthHistorical Med warfarin (COUMADIN) 5 MG tablet Take 5 mg by mouth dailyHistorical Med acetaminophen (TYLENOL) 500 MG tablet Take 1,000 mg by mouth 2 times daily as needed for PainHistorical Med nitroGLYCERIN (NITROSTAT) 0.[address] 0.4 mg under the tongue every 5 minutes as needed for Chest pain up to max of 3 total doses. If no relief after 1 dose, call 911.Historical Med HYDROcodone-acetaminophen (NORCO) 5-325 MG per tablet Take 1 tablet by mouth every 6 hours as needed for Pain.Historical Med nystatin (MYCOSTATIN) POWD powder Apply topically 2 times daily as neededHistorical Med ALLERGIES Adhesive tape, Ciprofloxacin, E-mycin [erythromycin], Keflex [cephalexin], Naproxen, Pcn [penicillins], Phenergan [promethazine], Statins, and Cheese FAMILY HISTORY History reviewed. No pertinent family history. SOCIAL HISTORY Social History Socioeconomic History Marital status: Unknown Spouse name: None Number of children: None Years of education: None Highest education level: None Tobacco Use Smoking status: Never Smokeless tobacco: Never Vaping Use Vaping Use: Never used Substance and Sexual Activity Alcohol use: Yes Comment: 1 PER YEAR Drug use: Never Sexual activity: Not Currently SCREENINGS [place] Coma Scale Eye Opening: Spontaneous Best Verbal Response: Oriented Best Motor Response: Obeys commands [place] Coma Scale Score: 15 PHYSICAL EXAM (up to 7 for level 4, 8 or more for level 5) ED Triage Vitals BP Temp Temp Source Heart Rate Resp SpO2 Height Weight 03/08/22 1149 03/08/22 1149 03/08/22 1149 03/08/22 1149 03/08/22 1149 03/08/22 1149 03/08/22201403/08/22 1149 (!) 93/56 99.3 ?F (37.4 ?C) Oral 78 18 95 % 5' 5" (1.651 m) 213 lb (96.6 kg) Physical Exam Kaycee (more content not included)... Normal [facility] Glucose,Bedsideon 03-08-2022 Glucose [Mass/Vol] 112 mg/dL High 70-100 [facility] Comment on above: Result Comment: Test performed by glucose meter. Results may be 10%-15% lower than serum/plasma values. (CLIA ID [id number]) Performed By: #### P T/AP, BMP3, HEMDF #### [facility] [employer] [facility] [address] [place] [address] Glucose [Mass/Vol] 81 mg/dL Normal 70-100 [facility] Comment on above: Result Comment: Test performed by glucose meter. Results may be 10%-15% lower than serum/plasma values. (CLIA ID [id number]) Performed By: #### P T/AP, BMP3, HEMDF #### [facility] [address] [place] [address] Hemogram w/ Autodiffon 03-08 Abs Baso Cnt 0.0 10*3/uL Normal 0.0-0.2 [facility] Comment on above: Performed By: #### P T/AP, BMP3, HEMDF #### [facility] [address] [place] [address] Abs Neutrophile Cnt 7.5 10*3/uL High 1.8-7.0 [facility] Comment on above: Performed By: #### P T/AP, BMP3, HEMDF #### [facility] [address] [place] [address] Basophils/100 WBC (Bld) 0.1 % Normal 0.0-2.0 [facility] Comment on above: Performed By: #### P T/AP, BMP3, HEMDF #### [facility] [address] [place] [address] Eosinophils (Bld) [#/Vol] 0.0 10*3/uL Normal 0.0-0.5 [facility] Comment on above: Performed By: #### P T/AP, BMP3, HEMDF #### [facility] [address] [place] [address] Eosinophils/100 WBC (Bld) 0.2 % Low 1.0-6.0 [facility] Comment on above: Performed By: #### P T/AP, BMP3, HEMDF #### [facility] [address] [place] [address] Erythrocyte distribution width (RBC) [Ratio] 14.1 % Normal 11.5-14.5 [facility] Comment on above: Performed By: #### P T/AP, BMP3, HEMDF #### [facility] [address] [place] [address] Granulocytes/100 WBC (Bld) 86.4 % High 40.0-80.0 [facility] Comment on above: Performed By: #### P T/AP, BMP3, HEMDF #### [facility] [address] [place] [address] Hematocrit (Bld) [Volume fraction] 36.9 % Normal 35.0-47.0 [facility] Comment on above: Performed By: #### P T/AP, BMP3, HEMDF #### [facility] [address] [place] [address] Hemoglobin (Bld) [Mass/Vol] 12.6 g/dL Normal 11.7-16.0 [facility] Comment on above: Performed By: #### P T/AP, BMP3, HEMDF #### [facility] [address] [place] [address] Lymphocytes (Bld) [#/Vol] 0.7 10*3/uL Low 1.0-4.3 [facility] Comment on above: Performed By: #### P T/AP, BMP3, HEMDF #### [facility] [address] [place] [address] Lymphocytes/100 WBC (Bld) 8.3 % Low 20.0-40.0 [facility] Comment on above: Performed By: #### P T/AP, BMP3, HEMDF #### [facility] [address] [place] [address] MCH (RBC) [Entitic mass] 31.9 pg Normal 26.0-34.0 [facility] Comment on above: Performed By: #### P T/AP, BMP3, HEMDF #### [facility] [address] [place] [address] MCHC 34.3 % Normal 32.0-36.0 [facility] Comment on above: Performed By: #### P T/AP, BMP3, HEMDF #### [facility] [address] [place] [address] MCV (RBC) [Entitic vol] 93.2 fL Normal 79.0-98.0 [facility] Comment on above: Performed By: #### P T/AP, BMP3, HEMDF #### [facility] [address] [place] [address] Monocytes (Bld) [#/Vol] 0.4 10*3/uL Normal 0.0-0.8 [facility] Comment on above: Performed By: #### P T/AP, BMP3, HEMDF #### [facility] [address] [place] [address] Monocytes/100 WBC (Bld) 5.0 % Normal 2.0-10.0 [facility] Comment on above: Performed By: #### P T/AP, BMP3, HEMDF #### [facility] [address] [place] [address] Platelet mean volume (Bld) [Entitic vol] 8.9 fL Normal 7.4-12.4 [facility] Comment on above: Result Comment: MPV is a calculated measurement using platelet volume ratio. Performed By: #### P T/AP, BMP3, HEMDF #### [facility] [address] [place] [address] Platelets (Bld) [#/Vol] 132 10*3/uL Low 140-440 [facility] Comment on above: Performed By: #### P T/AP, BMP3, HEMDF #### [place] [address] [place] [address] RBC (Bld) [#/Vol] 3.96 10*6/uL Normal 3.80-5.20 [facility] Comment on above: Performed By: #### P T/AP, BMP3, HEMDF #### [facility] [address] [place] [address] WBC (Bld) [#/Vol] 8.7 10*3/uL Normal 3.6-10.7 [facility] Comment on above: Performed By: #### P T/AP, BMP3, HEMDF #### [facility] [address] [place] [address] Lactate, Sepsison 03-08-2022 Lactate [Moles/Vol] 1.7 mmol/L 0.7 - 2 mmol/L [facility] Test Performed by [facility], [address] [place] [address] [facility] Lactic Acid, Sepsison 2021 Lactate [Moles/Vol] 1.7 mmol/L Normal 0.7-2.0 [facility] Comment on above: Performed By: #### P T/AP, BMP3, HEMDF #### [facility] [address] [place] [address] POCT GlucoseOrdered By: Jossy Moncada on 03-08-2022 Glucose [Mass/Vol] 112 mg/dL High 70 - 100 mg/dL [facility] Work Phone: Comment on above: Test performed by gl ucose meter. Results may be 10%-15% lower than serum/plasma values. (CLIA ID [id number]) Interpretation and review of laboratory results Abnormal [facility] Work Phone: [facility] Work Phone: POCT Glucoseon 03-08-2022 Test Performed by [facility], [address], [address] LAB Test Performed by [facility], [address], [address] LAB POCT GlucoseOrdered By: Yaakov Whitehead on 03-08-2022 Glucose [Mass/Vol] 81 mg/dL 70 - 100 mg/dL [facility] Work Phone: Comment on above: Test performed by gl ucose meter. Results may be 10%-15% lower than serum/plasma values. (CLIA ID [id number]) [employer] Work Phone: Prothrombin Timeon 2 INR 2.3 High 0.9-1.1 [facility] [employer] Comment on above: Result Comment: Rajiv mmended Anticoagulant Therapy: SEE BELOW ----- INR of 2.0 - 3.0 : - Prophylaxis of Venous Thrombosis (high-risk surgery) - Treatment of Venous Thrombosis - Treatment of Pulmonary Embolism (Includes tissue heart valves, Acute Myocardial Infarction to prevent systemic embolism, Valvular Heart Disease, and Atrial Fibrillation) ----- INR of 2.5 - 3.5 : - Mechanical Prosthetic Valves (high risk) - If oral anticoagulant therapy is used to prevent Myocardial Infarction Performed By: #### P T/AP, BMP3, HEMDF #### [facility] [employer] [facility] [address] [place] [address] PT Coag (PPP) [Time] 23.8 s High 9.0-12.0 [facility] Comment on above: Result Comment: . Performed By: #### P T/AP, BMP3, HEMDF #### [facility] [address] [place] [address] Protime-INRon 03-08-2022 INR Coag (Bld) [Relative time] 2.3 {INR} High [facility] Comment on above: Recommended Anticoag ulant Therapy: SEE BELOW ----- INR of 2.0 - 3.0 : - Prophylaxis of Venous Thrombosis (high-risk surgery) - Treatment of Venous Thrombosis - Treatment of Pulmonary Embolism (Includes tissue heart valves, Acute Myocardial Infarction to prevent systemic embolism, Valvular Heart Disease, and Atrial Fibrillation) ----- INR of 2.5 - 3.5 : - Mechanical Prosthetic Valves (high risk) - If oral anticoagulant therapy is used to prevent Myocardial Infarction Interpretation and review of laboratory results Abnormal [facility] PT Coag (PPP) [Time] 23.8 s High 9 - 12 s [facility] Comment on above: . Test Performed by [facility], [address], [place], [place] [id number] [place] [address] LAB [facility] Urinalysison 03-08-2022 Appearance (U) Turbid Abnormal Clear NA [facility] Comment on above: . Bacteria, UA Loaded Abnormal Negative /[HPF] [facility] Comment on above: . Bilirubin Urine Negative Negative mg/dL [facility] Comment on above: . Color (U) Light-Yellow Lt. Yellow NA [facility] Comment on above: . Glucose, Ur Normal Normal (<70) mg/dL [facility] Comment on above: . Interpretation and review of laboratory results Abnormal [facility] Ketones Ql (U) Negative Negative mg/dL [facility] Comment on above: . LEUKOCYTES, UA 500 Abnormal Negative Elvi/uL [facility] Comment on above: . Mucous Threads Few Negative /[LPF] [facility] Comment on above: . Nitrite, Urine Positive Abnormal Negative NA [facility] Comment on above: . Non-Squamous Epithelial /[HPF] Abnormal Negative /[HPF] [facility] Comment on above: . Occult Blood,Urine 0.06 mg/dL Abnormal Negative [facility] Comment on above: . pH (U) 6.0 [pH] [facility] Comment on above: . Protein (U) [Mass/Vol] 20 mg/dL Abnormal Negative [facility] Comment on above: . RBC, UA /[HPF] Abnormal 0 - 2 /[HPF] [facility] Comment on above: . Specific [place], Urine 1.014 [facility] Comment on above: . Squam Epithel, UA 0-2 3 - 5 /[HPF] [facility] Comment on above: . Urobilinogen, Urine Normal Normal (0-1) mg/dL [facility] Comment on above: . WBC, UA /[HPF] Abnormal 0 - 5 /[HPF] [facility] Comment on above: . Test Performed by [facility], [address], [place], [place] [id number] [place] [address] LAB [facility] XR ANKLE LEFT (MIN 3 VIEWS)o n 03-08-2022 Patient Name: RANDOLPH HUNTER Diagnostic Radiology ACCESSION EXAM DATE/TIME PROCEDURE ORDERING PROVIDER [id number] 03/08/2022 16:53 EDT CR Ankle 3+ Views Left JOHN LEZAMA LOUANN B CPT code 31461 Reason For Exam (CR Ankle 3+ Views Left) concern for OM Report LEFT ANKLE: CLINICAL INDICATION: Concern for osteomyelitis. TECHNIQUE: AP, Lat and Oblique views COMPARISON: None. FINDINGS: There is no evidence for fracture or dislocation. Ankle mortise is preserved. No osseous erosion or periostitis. No bone lesion. Ankle soft tissue swelling is more pronounced laterally. Posterior tibial and plantar arterial atherosclerotic calcification. IMPRESSION: No radiographic evidence of osteomyelitis. Peripheral arterial atherosclerotic changes. Report Dictated on Workstation: [id number] --- Final --- Dictating Physician: HARPER ANTONIO DO, I Signed Date and Time: 03/08/2022 5:15 pm Signed by: HARPER ANTONIO DO, I Transcribed Date and Time: 03/08/2022 5:16 [facility] RAD Harper Antonio DO - 03/08/2022 Patient Name: RANDOLPH HUNTER Diagnostic Radiology ACCESSION EXAM DATE/TIME PROCEDURE ORDERING PROVIDER [id number] 03/08/2022 16:53 EDT CR Ankle 3+ Views Left JOHN LEZAMA LOUANN B CPT code 21998 Reason For Exam (CR Ankle 3+ Views Left) concern for OM Report LEFT ANKLE: CLINICAL INDICATION: Concern for osteomyelitis. TECHNIQUE: AP, Lat and Oblique views COMPARISON: None. FINDINGS: There is no evidence for fracture or dislocation. Ankle mortise is preserved. No osseous erosion or periostitis. No bone lesion. Ankle soft tissue swelling is more pronounced laterally. Posterior tibial and plantar arterial atherosclerotic calcification. IMPRESSION: No radiographic evidence of osteomyelitis. Peripheral arterial atherosclerotic changes. Report Dictated on Workstation: [id number] --- Final --- Dictating Physician: HARPER ANTONIO DO, I Signed Date and Time: 03/08/2022 5:15 pm Signed by: HARPER ANTONIO DO, I Transcribed Date and Time: 03/08/2022 5:16 [facility] Work Phone: Radiology Study observation (narrative) [facility] Work Phone: XR ANKLE LEFT (MIN 3 VIEWS)O rdered By: Harper Antonio on 03-08-2022 [facility] Work Phone: PT panel Coag (PPP)on 2021 INR Coag (Bld) [Relative time] 2.3 (EXT) 2.0 - 3.0 [facility] INRon 10-29-2021 INR Coag (Bld) [Relative time] [facility] PT panel Coag (PPP)on 2021 INR Coag (Bld) [Relative time] 2.1 {INR} [facility] DXA-AXIAL SKELETONon 022 [facility] Cardiology Visit Reporton Cardiology Visit Report [facility] [address] [place], [place] [address] OFFICE VISIT Date of Service: 10/09/21 MR#: [id number] Acct: [id number] Name: RANDOLPH HUNTER Rep #: [id number] : 1950 Provider: LUIS ALBERTO huston Age/Sex: 71/F [place] [facility] Status: Signed [facility] History of Present Illness Details: This is a 71-year-old white female who presents today for outpatient cardiovascular consultation based on concerns of a history of underlying CAD, PCI, carotid artery disease, hyperlipidemia, hypertension, superimposed upon a history of diabetes mellitus and DVT/PE who is previously been cared for by [facility] cardiology. She denies chest, arm, jaw, or neck discomfort. She acknowledges feeling her heartbeat in her hands when she lies down to sleep at night. She knowledges unchanged bilateral lower extremity edema. She acknowledges shortness of breath with activity. She denies shortness of breath at rest, orthopnea, cough, or PND. She denies lightheadedness, dizziness, near-syncope, or syncope. She acknowledges unchanged, intermittent fatigue. Intake Vital Signs 10/09/21 10:16 Height 5 ft 5 in Weight: 215 lb BMI 35.7 BP 108/64 Blood Pressure Location Lt brachial Position Sitting Respiration 18 Pulse 58 L Pulse Source Monitor Intake Visit Reasons: 6 M Jockey'S Agent Required: No Accompanied by: None Is patient in pain?: No Allergies cephalexin monohydrate [From Keflex] Allergy (Verified 10/09/21 10:17) Unknown ciprofloxacin Allergy (Verified 10/09/21 10:17) Unknown erythromycin base [Erythromycin Base] Allergy (Verified 10/09/21 10:17) Unknown naproxen [From Naprosyn] Allergy (Verified 10/09/21 10:17) Unknown paroxetine HCl [From Paxil] Allergy (Verified 10/09/21 10:17) Unknown Penicillins Allergy (Verified 10/09/21 10:17) Unknown promethazine HCl [From Phenergan] Allergy (Verified 10/09/21 10:17) Unknown Vpqhfzs-VWK-KuL Reductase Inhibitor [Vktkjqo-Vzy-Qkp Reductase Inhibitor] Adverse Reaction (Severe, Verified 10/09/21 10:17) Myalgias PAPER TAPE Adverse Reaction (Uncoded 10/09/21 10:17) Rash Medications bupropion HCl 150 mg PO BID 06/06/14 [History Confirmed 10/09/21] fluticasone propionate 2 spray NASAL DAILY 06/06/14 [History Confirmed 10/09/21] hydrocodone-acetaminophen 1 tab PO Q6H PRN PRN #10 tab 06/30/17 [Rx Confirmed 10/09/21] aspirin 81 mg tablet,delayed release 81 mg PO DAILY 05/26/19 [History Confirmed 10/09/21] gabapentin 600 mg tablet 600 mg PO TID 05/26/19 [History Confirmed 10/09/21] mirtazapine 30 mg tablet 30 mg PO QHS tab 05/26/19 [History Confirmed 10/09/21] multivitamin 1 tab PO DAILY 05/26/19 [History Confirmed 10/09/21] nitroglycerin 0.4 mg sublingual tablet 0.4 mg SUBLINGUAL Q5-15M PRN 05/26/19 [History Confirmed 10/09/21] ramipril 5 mg capsule 5 mg PO DAILY 05/26/19 [History Confirmed 10/09/21] calcium carb-D3-mag [id number] 1 ea PO DAILY 06/12/19 [History Confirmed 10/09/21] cyanocobalamin (vitamin B-12) 1,000 mcg/mL injection solution 100 mcg IM QMONTH 08/20/20 [History Confirmed 10/09/21] magnesium oxide 500 mg capsule 500 mg PO DAILY 08/20/20 [History Confirmed 10/09/21] melatonin 10 mg tablet 10 mg PO HS PRN 08/20/20 [History Confirmed 10/09/21] metformin 850 mg tablet 850 mg PO DAILY tab 03/26/21 [History Confirmed 10/09/21] hydroxychloroquine 200 mg tablet 200 mg PO BID tab 10/09/21 [History Confirmed 10/09/21] levothyroxine 150 mcg tablet 150 mcg PO DAILY tab 10/09/21 [History Confirmed 10/09/21] metoprolol succinate 100 mg tablet,extended release 24 hr 100 mg PO DAILY #90 tab 10/09/21 [Rx Confirmed 10/09/21] mupirocin calcium 2 % topical cream 1 applic TOPICAL TID PRN 10/09/21 [History Confirmed 10/09/21] warfarin 2.5 mg tablet 2.5 mg PO .COMPLEX tab 10/09/21 [History Confirmed 10/09/21] Ejection fraction %: 65 to 70 PFSH Medical History Acute respiratory failure with hypoxia Anxiety and depression Atherosclerotic heart disease of [place] coronary artery without angina pectoris CAD (coronary artery disease) Carotid artery disease Essential hypertension History of cerebral palsy History of fibromyalgia History of hypothyroidism History of pulmonary embolism History of rheumatoid arthritis HTN (hypertension) Hx of systemic lupus erythematosus (SLE) Morbid obesity Pneumonia Presence of stent in coronary artery ( 05/17/08) Pure hypercholesterolemia PVD (peripheral vascular disease) Type II diabetes mellitus Surgical History History of appendectomy History of arthroscopy of right knee History of foot surgery History of hernia repair History of knee replacement, total History of tonsillectomy History of total hysterectomy Presence of coronary angioplasty impla (more content not included)... Normal [facility] PT panel Coag (PPP)on 2021 INR Coag (Bld) [Relative time] 2.1(EXT) 2.0 - 3.0 [facility] PT panel Coag (PPP)on 2021 INR Coag (Bld) [Relative time] 2.6(EXT) 2.0 - 3.0 [facility] PT panel Coag (PPP)on 2021 INR Coag (Bld) [Relative time] 2.2 (ext) [facility] Basophil percentageon 2021 Bilirubin [Mass/Vol] 0.40 mg/dL 0.20-1.00 [facility] Work Phone: Comment on above: For patients on eltr ombopag therapy, use of Dimension Stanton TBIL is not recommended. Cholesterol [Mass/Vol] 142 mg/dL Normal 200 [facility] Comment on above: <200 mg/dL Desirable 200-240 mg/dL Borderline >240 mg/dL High Risk Result Comment: <200 mg/dL Desirable 200-240 mg/dL Borderline >240 mg/dL High Risk Performed By: #### L 500.4100, L500.3400, L502.0250 #### [facility] [address] [place], [place], [id number] Protein [Mass/Vol] 7.5 g/dL 6.4-8.2 [facility] Work Phone: Triglyceride [Mass/Vol] 156 mg/dL Normal [facility] Comment on above: The drugs N-Acetylcy steine and Metamizole may falsely depress this assay.Serum Triglycerides Reference Interval Normal <150 mg/dL Borderline high 150 - 199 mg/dL High 200 - 499 mg/dL Very High > or = 500 mg/dL Result Comment: The drugs N-Acetylcysteine and Metamizole may falsely depress this assay. Serum Triglycerides Reference Interval Normal <150 mg/dL Borderline high 150 - 199 mg/dL High 200 - 499 mg/dL Very High > or = 500 mg/dL Performed By: #### L 500.4100, L500.3400, L502.0250 #### [facility] [address] [place], [address] Direct bilirubinon 2 Bilirubin.direct [Mass/Vol] 0.12 mg/dL 0.00-0.30 [facility] Work Phone: LIPID PANEL (EXTERNAL)on HDC-L 41 mg/dL 41 mg/dL [facility] LDL Chol, calculated 31 MG/DL 130 MG/DL [facility] - Chemistry and C hemistry - challengeon 09-16-2021 ALP [Catalytic activity/Vol] 58 U/L 45-117 [facility] Work Phone: ALT [Catalytic activity/Vol] 18 U/L 13-56 [facility] Work Phone: Globulin (S) [Mass/Vol] 4.1 g/dL 2.2-4.2 [facility] Work Phone: Lipid Profileon 09-16-2021 Cholesterol in HDL [Mass/Vol] 41 mg/dL Normal [facility] Comment on above: Result Comment: The drugs N-Acetylcysteine and Metamizole may falsely depress this assay. Reference Range HDL <40 mg/dL Low HDL Cholesterol HDL >or= 60 mg/dL High HDL Cholesterol Performed By: #### L 500.4100, L500.3400, L502.0250 #### [facility] [address] [place], [address] Cholesterol in LDL [Mass/Vol] 70 mg/dL Normal 0-130 [facility] Comment on above: Performed By: #### L 500.4100, L500.3400, L502.0250 #### [facility] [address] [place], [address] Cholesterol in VLDL [Mass/Vol] 31 mg/dL Normal 5-40 [facility] Comment on above: Performed By: #### L 500.4100, L500.3400, L502.0250 #### [facility] [address] [place], [address] Liver Profileon 09-16-2021 Albumin [Mass/Vol] 3.4 g/dL Normal 3.2-5.0 [facility] Comment on above: Performed By: #### L 500.4100, L500.3400, L502.0250 #### [facility] [address] [place], [address] ALK P 58 U/L Normal 45-117 [facility] Comment on above: Performed By: #### L 500.4100, L500.3400, L502.0250 #### [facility] [address] [place], [address] ALT [Catalytic activity/Vol] 18 U/L Normal 13-56 [facility] Comment on above: Performed By: #### L 500.4100, L500.3400, L502.0250 #### [facility] [address] [place], [address] AST [Catalytic activity/Vol] 22 U/L Normal 15-37 [facility] Comment on above: Performed By: #### L 500.4100, L500.3400, L502.0250 #### [facility] [address] [place], [address] Bilirubin [Mass/Vol] 0.40 mg/dL Normal 0.20-1.00 [facility] Comment on above: Result Comment: For patients on eltrombopag therapy, use of Dimension Stanton TBIL is not recommended. Performed By: #### L 500.4100, L500.3400, L502.0250 #### [facility] [address] [place], [address] Bilirubin.direct [Mass/Vol] 0.12 mg/dL Normal 0.00-0.30 [facility] Comment on above: Performed By: #### L 500.4100, L500.3400, L502.0250 #### [facility] [address] [place], [address] Globulin (S) [Mass/Vol] 4.1 g/dL Normal 2.2-4.2 [facility] Comment on above: Performed By: #### L 500.4100, L500.3400, L502.0250 #### [facility] [address] [place], [address] T PROT 7.5 g/dL Normal 6.4-8.2 [facility] Comment on above: Performed By: #### L 500.4100, L500.3400, L502.0250 #### [facility] [address] [place], [address] MICROALBUMIN/CREATININE UR W RATIO (EXTERNAL)on 09-16-2021 Albumin/Creat Ratio 9.4 [facility] Creatinine Urine 158 [facility] Microalbumin, Random urine 14.9 [facility] Microalb:Creat Ratio,Random URon 09-16-2021 Creatinine [Mass/Vol] 158.00 mg/dL Normal NO RANGE EST. [facility] Comment on above: Performed By: #### L 500.4100, L500.3400, L502.0250 #### [facility] [address] [place], [address] MALB:CRE 9.4 mg/g CRE Normal <30 mg/g CRE [facility] Comment on above: Performed By: #### L 500.4100, L500.3400, L502.0250 #### [facility] [address] [place], [address] MICROALBUMIN,UR 14.9 mg/L Normal NO RANGE EST. [facility] Comment on above: Performed By: #### L 500.4100, L500.3400, L502.0250 #### [facility] [place], [address] No Panel Informationon 09-16 Urine Microalbumin/Creati nine Ratio 9.4 mg/g CRE <30 [facility] Work Phone: Serum or plasma albumin aura urement (mass/volume)on 09-16-2021 Albumin [Mass/Vol] 3.4 g/dL 3.2-5.0 [facility] Work Phone: Serum or plasma cholesterol in HDL measurement (mass/volume)on 09-16-2021 Cholesterol in HDL [Mass/Vol] 41 mg/dL [facility] Work Phone: Comment on above: The drugs N-Acetylcy steine and Metamizole may falsely depress this assay. Reference Range HDL <40 mg/dL Low HDL Cholesterol HDL >or= 60 mg/dL High HDL Cholesterol Serum or plasma cholesterol in VLDL measurement (mass/volume)on 09-16-2021 Cholesterol in VLDL [Mass/Vol] 31 mg/dL 5-40 [facility] Work Phone: Serum or plasma low density lipoprotein (LDL) cholesterol measurement (mass/volume)on 09-16-2021 Cholesterol in LDL [Mass/Vol] 70 mg/dL 0-130 [facility] Work Phone: Thin prep Papanicolaou smear with manual screeningon 09-16-2021 Thin prep Papanicolaou smear with manual screening 22 U/L 15-37 [facility] Work Phone: Thin prep Papanicolaou smear with manual screening 14.9 mg/L NO RANGE EST. [facility] Work Phone: Urine creatinine measurement (mass/volume)on 09-16-2021 Creatinine (U) [Mass/Vol] 158.00 mg/dL NO RANGE EST. [facility] Work Phone: PT panel Coag (PPP)on 2021 INR Coag (Bld) [Relative time] 1.9 (EXT) 2.0 - 3.0 [facility] 12 Lead EKGon 11-02-[address] [facility] [address] [place] [address] 12 Lead EKG 04/22/21 2215 MR#: [id number] Acct: [id number] Name: RANDOLPH HUNTER Rep #: [id number] : 1950 70 From: Yvette Grover MD Attending Dr: Status: DEP ER Ordering Dr: Mehran Campos DO Date: 04/22/21 Location: ED Sex: F C Admitted: Test Reason : WEAKNESS Blood Pressure : / mmHG Vent. Rate : 087 BPM Atrial Rate : 087 BPM P-R Int : 146 ms QRS Dur : 076 ms QT Int : 368 ms P-R-T Axes : 034 -46 057 degrees QTc Int : 442 ms Normal sinus rhythm Left anterior fascicular block Septal infarct , age undetermined , cannot be excluded Abnormal ECG Confirmed by TYREL MENDOZA, YVETTE ([id number]), marketing editor DEL KAMINSKI ([id number]) on 04/24/2021 8:44:40 AM Referred By: Confirmed By:YVETTE GROVER MD 04/24/21 0844 Date Yvette Grover MD CC: Dr. Mehran Campos DO; Dr. Baudilio Sultana MD Signed [facility] CBC W/Diff, Automatedon 11-0 Anisocytosis Ql (Bld) [facility] Comment on above: Performed By: #### L 500.4050, L100.0100, L300.3900, L501.4020 ####[facility] [address] [place], [place], [address] MACROCYTOSIS [facility] Comment on above: Performed By: #### L 500.4050, L100.0100, L300.3900, L501.4020 ####[facility] [address] [place], [address] PLT EST ADEQUATE Normal ADEQ [facility] Comment on above: Performed By: #### L 500.4050, L100.0100, L300.3900, L501.4020 ####[facility] [address] [place], [address] RED CELL MORPH N CHROM Normal NORM C C [facility] Comment on above: Performed By: #### L 500.4050, L100.0100, L300.3900, L501.4020 ####[facility] [address] [place], [address] SMEAR COMMENT SEE COMMENT Normal [facility] Comment on above: Result Comment: LYMP HOPENIA NOTED Performed By: #### L 500.4050, L100.0100, L300.3900, L501.4020 ####[facility] [address] [place], [address] COVID 19 AG RAPID (RN COLLEC T)on 04-23-2021 SARS-CoV-2 (COVID-19) RNA JOSE+probe Ql (Unsp spec) Comments: Order Always:Unless pt has Inhouse Cov19 Criteria+ *Negative results from patients with symptom onset beyond five days should be treated as presumptive and confirmed by a molecular assay if clinically necessary. Negative results should not be used as the sole basis for treatment or for patient management. COVID 19 AG RAPID (RN COLLECT) *Positive results do not differentiate between SARS-CoV and SARS-CoV-2. If differentation of the specific SARS virus is desired an additional sample and an additional order is required. COVID 19 AG RAPID (RN COLLECT) * This test has not been FDA cleared or approved; the test has been authorized by FDA under an Emergency Use Authorization (EAU) for use by laboratories certified under CLIA that meet the requirements to perform moderate, high, or waived complexity tests. COVID 19 AG RAPID (RN COLLECT) Normal Reference Range: Negative SARS-CoV-2 (COVID 19) Negative RAPID METHOD [employer] COVID19 Ag Card, lateral flow Normal [facility] Comment on above: Performed By: #### M 100.505 #### [facility] [address] [place], [address] Comprehensive Metabolic Prof ilon 04-23-2021 Albumin [Mass/Vol] 3.3 g/dL Normal 3.2-5.0 [facility] Comment on above: Performed By: #### L 500.4050, L100.0100, L300.3900, L501.4020 ####[facility] [address] [place], [address] Albumin/Globulin [Mass ratio] 0.7 {ratio} Low 0.9-2.4 [facility] Comment on above: Performed By: #### L 500.4050, L100.0100, L300.3900, L501.4020 ####[facility] [address] [place], [address] ALK P 59 U/L Normal 45-117 [facility] Comment on above: Performed By: #### L 500.4050, L100.0100, L300.3900, L501.4020 ####[facility] [address] [place], [address] ALT [Catalytic activity/Vol] 18 U/L Normal 13-56 [facility] Comment on above: Performed By: #### L 500.4050, L100.0100, L300.3900, L501.4020 ####[facility] [address] [place], [address] AST [Catalytic activity/Vol] 26 U/L Normal 15-37 [facility] Comment on above: Result Comment: Slig ht Hemolysis, Result may be falsely increased. Performed By: #### L 500.4050, L100.0100, L300.3900, L501.4020 ####[facility] [address] [place], [address] Bilirubin [Mass/Vol] 0.70 mg/dL Normal 0.20-1.00 [facility] Comment on above: Result Comment: For patients on eltrombopag therapy, use of Dimension Stanton TBIL is not recommended. Performed By: #### L 500.4050, L100.0100, L300.3900, L501.4020 ####[facility] [address] [place], [address] BUN/CRE 12.5 RATIO Normal 10-20 [facility] Comment on above: Performed By: #### L 500.4050, L100.0100, L300.3900, L501.4020 ####[facility] [address] [place], [address] CA,Total 8.9 mg/dL Normal 8.5-10.1 [facility] Comment on above: Performed By: #### L 500.4050, L100.0100, L300.3900, L501.4020 ####[facility] [address] [place], [address] Chloride [Moles/Vol] 101 mmol/L Normal 98-107 [facility] Comment on above: Performed By: #### L 500.4050, L100.0100, L300.3900, L501.4020 ####[facility] [address] [place], [address] CO2 [Moles/Vol] 30.0 mmol/L Normal 21.0-32.0 [facility] Comment on above: Performed By: #### L 500.4050, L100.0100, L300.3900, L501.4020 ####[facility] [address] [place], [address] Creatinine [Mass/Vol] 1.20 mg/dL High 0.55-1.02 [facility] Comment on above: Result Comment: The validity of the calculated GFR GFRAA in patients over 70 years has not been determined. Clinical correlation is essential. Performed By: #### L 500.4050, L100.0100, L300.3900, L501.4020 ####[facility] [address] [place], [address] ECRCL 39.81 ml/min Normal [facility] Comment on above: Performed By: #### L 500.4050, L100.0100, L300.3900, L501.4020 ####[facility] [address] [place], [address] EST GFR - AA 57 mL/min Low >60 [facility] Comment on above: Result Comment: Afri can Salvadorean GFR Calc Performed By: #### L 500.4050, L100.0100, L300.3900, L501.4020 ####[facility] [address] [place], [address] GAP 3 Low 5-15 [facility] Comment on above: Performed By: #### L 500.4050, L100.0100, L300.3900, L501.4020 ####[facility] [address] [place], [address] GFR/1.73 sq M.predicted among non-blacks MDRD (S/P/Bld) [Vol rate/Area] 47 mL/min/{1.73_m2} Low >60 [facility] Comment on above: Result Comment: Non- GFR Calc Performed By: #### L 500.4050, L100.0100, L300.3900, L501.4020 ####[facility] [address] [place], [address] Globulin (S) [Mass/Vol] 4.9 g/dL High 2.2-4.2 [facility] Comment on above: Performed By: #### L 500.4050, L100.0100, L300.3900, L501.4020 ####[facility] [address] [place], [address] Glucose [Mass/Vol] 163 mg/dL High 74-106 [facility] Comment on above: Result Comment: Fast ing Glucose result greater than or equal to 126 mg/dL suggests DIABETES MELLITUS per A.D.A. criteria. Please note revised GLUCOSE reference range effective 2017. Performed By: #### L 500.4050, L100.0100, L300.3900, L501.4020 ####[facility] [address] [place], [address] Potassium [Moles/Vol] 4.7 mmol/L Normal 3.5-5.1 [facility] Comment on above: Result Comment: Slig ht Hemolysis, Result may be falsely increased. Performed By: #### L 500.4050, L100.0100, L300.3900, L501.4020 ####[facility] [address] [place], [address] Sodium [Moles/Vol] 134 mmol/L Low 136-145 [facility] Comment on above: Performed By: #### L 500.4050, L100.0100, L300.3900, L501.4020 ####[facility] [address] [place], [address] T PROT 8.2 g/dL Normal 6.4-8.2 [facility] Comment on above: Performed By: #### L 500.4050, L100.0100, L300.3900, L501.4020 ####[facility] [address] [place], [address] Urea nitrogen [Mass/Vol] 15 mg/dL Normal 7-18 [facility] Comment on above: Performed By: #### L 500.4050, L100.0100, L300.3900, L501.4020 ####[facility] [address] [place], [address] Emergency Department Summary on 04-23-2021 Emergency Department Summary [facility] Medical Records Department [address] [place] [address] Emergency Department Summary 04/22/21 MR#: [id number] Acct: [id number] Name: RANDOLPH HUNTER Rep #: [id number] : 1950 70 From: Mehran Campos DO PCP: Dr. Baudilio Sultana MD Status:DEP ER Location: ED HPI History of Present Illness Chief Complaint: Weakness Informant: patient, family and EMS Narrative Narrative: 70-year-old female presenting to the emergency department with fever and weakness. Patient states that she got her Covid booster yesterday. She states that today she is felt very weak. She states that she slept most of the day and required assistance getting in and out of her wheelchair. States that normally she is able to help herself stand transition but today cannot. She states that EMS told her she had a fever. She notes a headache. [facility] Medical History (Updated 04/23/21 @ 00:[address] Mehran Campos DO) Acute respiratory failure with hypoxia Anxiety and depression Atherosclerotic heart disease of [place] coronary artery without angina pectoris CAD (coronary artery disease) Carotid artery disease Essential hypertension History of cerebral palsy History of fibromyalgia History of hypothyroidism History of pulmonary embolism History of rheumatoid arthritis HTN (hypertension) Hx of systemic lupus erythematosus (SLE) Morbid obesity Pneumonia Presence of stent in coronary artery ( 05/17/08) Pure hypercholesterolemia PVD (peripheral vascular disease) Type II diabetes mellitus Home Medications bupropion HCl 150 mg PO BID 06/06/14 [History Last Taken 06/25/17] fluticasone propionate 2 spray NASAL DAILY 06/06/14 [History Last Taken 06/25/17] hydrocodone-acetaminophen 1 tab PO Q6H PRN PRN #10 tab 06/30/17 [Rx Last Taken Unknown] aspirin 81 mg tablet,delayed release 81 mg PO DAILY 05/26/19 [History Last Taken Unknown] cholecalciferol (vitamin D3) 50 mcg (2,000 unit) tablet 2,000 unit PO DAILY 05/26/19 [History Last Taken Unknown] gabapentin 600 mg tablet 600 mg PO TID 05/26/19 [History Last Taken Unknown] levothyroxine 125 mcg tablet 125 mcg PO DAILY 05/26/19 [History Last Taken Unknown] mirtazapine 30 mg tablet 30 mg PO QHS tab 05/26/19 [History Last Taken Unknown] multivitamin 1 tab PO DAILY 05/26/19 [History Last Taken Unknown] nitroglycerin 0.4 mg sublingual tablet 0.4 mg SUBLINGUAL Q5-15M PRN 05/26/19 [History Last Taken Unknown] ramipril 5 mg capsule 5 mg PO DAILY 05/26/19 [History Last Taken Unknown] warfarin 2.5 mg tablet 5 mg PO DAILY 05/26/19 [History Last Taken Unknown] calcium carb-D3-mag irn45-vmrf 1 ea PO DAILY 06/12/19 [History Last Taken Unknown] cyanocobalamin (vitamin B-12) 1,000 mcg/mL injection solution 100 mcg IM QMONTH 08/20/20 [History Last Taken Unknown] magnesium oxide 500 mg capsule 500 mg PO DAILY 08/20/20 [History Last Taken Unknown] melatonin 10 mg tablet 10 mg PO HS PRN 08/20/20 [History Last Taken Unknown] metoprolol succinate 100 mg tablet,extended release 24 hr 100 mg PO DAILY #90 tab 08/20/20 [Rx Last Taken Unknown] metformin 850 mg tablet 850 mg PO DAILY tab 03/26/21 [History Last Taken Unknown] ketoconazole 1 applic TOPICAL DAILY 04/22/21 [History Last Taken Unknown] mupirocin calcium [Bactroban] 1 applic TOPICAL TID 04/22/21 [History Last Taken Unknown] Allergy/AdvReac Type Severity Reaction Status Date / Time cephalexin monohydrate Allergy Unknown Verified 04/22/21 21:54 [From Keflex] ciprofloxacin Allergy Unknown Verified 04/22/21 21:54 erythromycin base Allergy Unknown Verified 04/22/21 21:54 [Erythromycin Base] naproxen [From Naprosyn] Allergy Unknown Verified 04/22/21 21:54 paroxetine HCl [From Paxil] Allergy Unknown Verified 04/22/21 21:54 Penicillins Allergy Unknown Verified 04/22/21 21:54 promethazine HCl Allergy Unknown Verified 04/22/21 21:54 [From Phenergan] Umelglk-Ghw-Wzo Reductase AdvReac Severe Myalgias Verified 04/22/21 21:54 Inhibitor PAPER TAPE AdvReac Rash Uncoded 04/22/21 21:54 Family History Mother Asthma Diabetes Colon cancer Heart disease COPD (chronic obstructive pulmonary disease) Hypertension Father Heart disease Cancer Lung COPD (chronic obstructive pulmonary disease) Abdominal aortic aneurysm (AAA) Brother Cancer Brain Brother COPD (chronic obstructive pulmonary disease) Surgical History History of appendectomy History of arthroscopy of right knee History of foot surgery History of hernia repair History of knee replacement, total History of tonsillectomy History of total hysterectomy Presence of coronary angioplasty implant and graft ( 05/17/08) Social History Smoking Status: N (more content not included)... Normal [facility] L501.4020on 04-23-2021 TROPONIN-I HS 5 pg/mL Normal 3.0-54.0 [facility] Comment on above: Result Comment: Plea se Note: New Test Units and Gender Specific Reference Ranges. For more information see Policy Stat Procedure Stanton High Sensitivity Troponin (TNIH) and attachments. Performed By: #### L 500.4050, L100.0100, L300.3900, L501.4020 ####[facility] [address] [place], [address] Prothrombin Time w/INRon INR Coag (PPP) [Relative time] 1.9 {INR} Normal [facility] Comment on above: Performed By: #### L 500.4050, L100.0100, L300.3900, L501.4020 #### [facility] [address] [place], [address] PT Coag (PPP) [Time] 21.0 s High 11.7-14.9 [facility] Comment on above: Performed By: #### L 500.4050, L100.0100, L300.3900, L501.4020 #### [facility] [address] [facility] [address] Urinalysis, Completeon 04-23 BACTERIA 0 SEEN Normal None Seen [facility] Comment on above: Order Comment: CLAU TER SPECIMEN Performed By: #### L 400.0001 #### [facility] [address] [place], [address] EPI,SQUAMOUS 0 SEEN Normal 5-10 [facility] Comment on above: Order Comment: CLAU TER SPECIMEN Performed By: #### L 400.0001 #### [facility] [address] [place], [address] Mucus Ql (Urine sed) 0 SEEN Normal [facility] Comment on above: Order Comment: CLAU TER SPECIMEN Performed By: #### L 400.0001 #### [facility] [address] [place], [address] RBC 0 SEEN Normal 0-5 [facility] Comment on above: Order Comment: CLAU TER SPECIMEN Performed By: #### L 400.0001 #### [facility] [address] [place], [address] WBC 0 SEEN Normal 0-5 [facility] Comment on above: Order Comment: CLAU TER SPECIMEN Performed By: #### L 400.0001 #### [facility] [address] [place], [address] Miscellaneous Lab Procedureo n 04-01-2021 [facility] LAB TEST Normal [facility] Comment on above: Order Comment: RHEUM ATOID FACTOR IGM [id number] SER/RFRHEUMATOID FACTOR IGM [id number] SER/RF Result Comment: TEST RESULT UNITS REF INTERVAL RF, IgM by EIA(RDL) <7 IU <7 TESTING PERFORMED AT [facility]. ORIGINAL REPORT ON FILE IN LAB CONTAINS ADDITIONAL TEST SITE INFORMATION. Performed By: #### M 100.505 #### [facility] [address] [place], [address] KRISTAL w/Comprehensiveon 2020 KRISTAL TABLE Comment Normal . [facility] Comment on above: Result Comment: Auto antibody Disease Association Condition Frequency Antinuclear Antibody, SLE, mixed connective Direct (KRISTAL-D) tissue diseases dsDNA SLE 40 - 60% Chromatin Drug induced SLE 90% SLE 48 - 97% SSA (Ro) SLE 25 - 35% Sjogren's Syndrome 40 - 70% Lupus 100% SSB (La) SLE 10% Sjogren's Syndrome 30% Sm (anti-Ramsey) SLE 15 - 30% H[employer]ER Mixed Connective Tissue Disease 95% (U1 nRNP, SLE 30 - 50% anti-ribonucleoprotein) Polymyositis and/or Dermatomyositis 20% Scl-70 (antiDNA Scleroderma (diffuse) 20 - 35% topoisomerase) Crest 13% Rhea-1 Polymyositis and/or Dermatomyositis 20 - 40% Centromere B Scleroderma - Crest variant 80% Ribosomal P SLE 10 - 20% Performed at: [facility] [address], [place] [id number] Railroad Car Inspector: Emil Hall PhD, Phone: [phone] Performed By: #### L 501.6710, L501.1800, L101.9900, L501.1400, L501.4405, L3300.6900, L501.3620, L3300.1200, L801.1541, L4600.0100, L3100.5430, L501.1000, L501.9520, L100.0100, L501.1105, L501.4100, L3100.5700, L3100.5800 ####[facility] [address] [place], [place], [address] ANTI-DNA (DS)AB <1 Normal 0-9 [facility] Comment on above: Result Comment: Nega tive <5 Equivocal 5 - 9 Positive >9 Performed By: #### L 501.6710, L501.1800, L101.9900, L501.1400, L501.4405, L3300.6900, L501.3620, L3300.1200, L801.1541, L4600.0100, L3100.5430, L501.1000, L501.9520, L100.0100, L501.1105, L501.4100, L3100.5700, L3100.5800 ####[facility] [address] [facility] [place], [place], [id number] ANCAon 03-28-2021 Atypical pANCA <1:20 Normal Neg:<1:20 [facility] Comment on above: Result Comment: The atypical pANCA pattern has been observed in a significant percentage of patients with ulcerative colitis, primary sclerosing cholangitis and autoimmune hepatitis. Performed By: #### L 501.6710, L501.1800, L101.9900, L501.1400, L501.4405, L3300.6900, L501.3620, L3300.1200, L801.1541, L4600.0100, L3100.5430, L501.1000, L501.9520, L100.0100, L501.1105, L501.4100, L3100.5700, L3100.5800 ####[facility] [address] [facility]. [place], [place], [address] Perinuclear Ab. <1:20 Normal Neg:<1:20 [facility] Comment on above: Result Comment: The presence of positive fluorescence exhibiting P-ANCA or C-ANCA patterns alone is not specific for the diagnosis of Yoana's Granulomatosis (WG) or microscopic polyangiitis. Decisions about treatment should not be based solely on ANCA IFA results. The International ANCA Group Consensus recommends follow up testing of positive sera with both OK- 3 and MPO-ANCA enzyme immunoassays. As many as 5% serum samples are positive only by EIA. Ref. AM J Clin Pathol 1999;111:507-513. Performed By: #### L 501.6710, L501.1800, L101.9900, L501.1400, L501.4405, L3300.6900, L501.3620, L3300.1200, L801.1541, L4600.0100, L3100.5430, L501.1000, L501.9520, L100.0100, L501.1105, L501.4100, L3100.5700, L3100.5800 ####[facility] [address] [facility]. [place], [place], [address] Cytoplasmic Ab <1:20 Normal Neg:<1:20 [facility] Comment on above: Performed By: #### L 501.6710, L501.1800, L101.9900, L501.1400, L501.4405, L3300.6900, L501.3620, L3300.1200, L801.1541, L4600.0100, L3100.5430, L501.1000, L501.9520, L100.0100, L501.1105, L501.4100, L3100.5700, L3100.5800 ####[facility] [address] [facility]. [place], [place], [id number] CCP IgG Antibodieson 021 CCP IgG Ab. 6 units Normal 0-19 [facility] Comment on above: Result Comment: Nega tive <20 Weak positive 20 - 39 Moderate positive 40 - 59 Strong positive >59 Performed By: #### L 501.6710, L501.1800, L101.9900, L501.1400, L501.4405, L3300.6900, L501.3620, L3300.1200, L801.1541, L4600.0100, L3100.5430, L501.1000, L501.9520, L100.0100, L501.1105, L501.4100, L3100.5700, L3100.5800 ####[facility] [address] [place], [place], [address] Complement C3on 03-28-2021 COMP C3 108 mg/dL Normal 82-167 [facility] Comment on above: Performed By: #### L 501.6710, L501.1800, L101.9900, L501.1400, L501.4405, L3300.6900, L501.3620, L3300.1200, L801.1541, L4600.0100, L3100.5430, L501.1000, L501.9520, L100.0100, L501.1105, L501.4100, L3100.5700, L3100.5800 ####[facility] [address] [place], [place], [address] Complement C4on 03-28-2021 COMPLEMENT, C4 10 mg/dL Low 12-38 [facility] Comment on above: Performed By: #### L 501.6710, L501.1800, L101.9900, L501.1400, L501.4405, L3300.6900, L501.3620, L3300.1200, L801.1541, L4600.0100, L3100.5430, L501.1000, L501.9520, L100.0100, L501.1105, L501.4100, L3100.5700, L3100.5800 ####[facility] [address] [place], [place], [address] Thyroid Peroxidase ABon 10-0 THYR PEROX AB < 8 Normal 0-34 [facility] Comment on above: Result Comment: Perf ormed at: [facility] [address] [id number] Railroad Car Inspector: Emil Hall PhD, Phone: [phone] Performed at: [facility] [address] [id number] Railroad Car Inspector: Fay Proctor MD, Phone: [phone] Performed By: #### L 501.6710, L501.1800, L101.9900, L501.1400, L501.4405, L3300.6900, L501.3620, L3300.1200, L801.1541, L4600.0100, L3100.5430, L501.1000, L501.9520, L100.0100, L501.1105, L501.4100, L3100.5700, L3100.5800 ####[facility] [address] [place], [place], [address] KRISTAL w/Comprehensiveon 2020 ANTI-CENT B AB <0.2 Normal 0.0-0.9 [facility] Comment on above: Performed By: #### L 501.6710, L501.1800, L101.9900, L501.1400, L501.4405, L3300.6900, L501.3620, L3300.1200, L801.1541, L4600.0100, L3100.5430, L501.1000, L501.9520, L100.0100, L501.1105, L501.4100, L3100.5700, L3100.5800 ####[facility] [address] [place], [place], [address] ANTI-RHEA-1 <0.2 Normal 0.0-0.9 [facility] Comment on above: Performed By: #### L 501.6710, L501.1800, L101.9900, L501.1400, L501.4405, L3300.6900, L501.3620, L3300.1200, L801.1541, L4600.0100, L3100.5430, L501.1000, L501.9520, L100.0100, L501.1105, L501.4100, L3100.5700, L3100.5800 ####[facility] [address] [place], [place], [address] ANTI-SS-A 0.8 AI Normal 0.0-0.9 [facility] Comment on above: Performed By: #### L 501.6710, L501.1800, L101.9900, L501.1400, L501.4405, L3300.6900, L501.3620, L3300.1200, L801.1541, L4600.0100, L3100.5430, L501.1000, L501.9520, L100.0100, L501.1105, L501.4100, L3100.5700, L3100.5800 ####[facility] [address] [place], [address] Anti-SS-B < 0.2 Normal 0.0-0.9 [facility] Comment on above: Performed By: #### L 501.6710, L501.1800, L101.9900, L501.1400, L501.4405, L3300.6900, L501.3620, L3300.1200, L801.1541, L4600.0100, L3100.5430, L501.1000, L501.9520, L100.0100, L501.1105, L501.4100, L3100.5700, L3100.5800 ####[facility] [address] [place], [place], [address] ANTICHROMATIN 0.2 AI Normal 0.0-0.9 [facility] Comment on above: Performed By: #### L 501.6710, L501.1800, L101.9900, L501.1400, L501.4405, L3300.6900, L501.3620, L3300.1200, L801.1541, L4600.0100, L3100.5430, L501.1000, L501.9520, L100.0100, L501.1105, L501.4100, L3100.5700, L3100.5800 ####[facility] [address] [place], [place], [address] Antiribosomal P <0.2 Normal 0.0-0.9 [facility] Comment on above: Performed By: #### L 501.6710, L501.1800, L101.9900, L501.1400, L501.4405, L3300.6900, L501.3620, L3300.1200, L801.1541, L4600.0100, L3100.5430, L501.1000, L501.9520, L100.0100, L501.1105, L501.4100, L3100.5700, L3100.5800 ####[facility] [address] [place], [address] ANTISCLERODERM <0.2 Normal 0.0-0.9 [facility] Comment on above: Performed By: #### L 501.6710, L501.1800, L101.9900, L501.1400, L501.4405, L3300.6900, L501.3620, L3300.1200, L801.1541, L4600.0100, L3100.5430, L501.1000, L501.9520, L100.0100, L501.1105, L501.4100, L3100.5700, L3100.5800 ####[facility] [address] [place], [place], [phone] [employer] Ab 0.4 AI Normal 0.0-0.9 [facility] Comment on above: Performed By: #### L 501.6710, L501.1800, L101.9900, L501.1400, L501.4405, L3300.6900, L501.3620, L3300.1200, L801.1541, L4600.0100, L3100.5430, L501.1000, L501.9520, L100.0100, L501.1105, L501.4100, L3100.5700, L3100.5800 ####[facility] [address] [place], [place], [phone] RAMSEY Ab <0.2 Normal 0.0-0.9 [facility] Comment on above: Performed By: #### L 501.6710, L501.1800, L101.9900, L501.1400, L501.4405, L3300.6900, L501.3620, L3300.1200, L801.1541, L4600.0100, L3100.5430, L501.1000, L501.9520, L100.0100, L501.1105, L501.4100, L3100.5700, L3100.5800 ####[facility] [address] [place], [place], [phone] RAMSEY/[employer]CHO[employer] TEACHER Ab <0.2 Normal 0.0-0.9 [facility] Comment on above: Performed By: #### L 501.6710, L501.1800, L101.9900, L501.1400, L501.4405, L3300.6900, L501.3620, L3300.1200, L801.1541, L4600.0100, L3100.5430, L501.1000, L501.9520, L100.0100, L501.1105, L501.4100, L3100.5700, L3100.5800 ####[facility] [address] [place], [place], [phone] AST(SGOT)on 03-26-2021 AST [Catalytic activity/Vol] 21 U/L Normal 15-37 [facility] Comment on above: Performed By: #### L 501.6710, L501.1800, L101.9900, L501.1400, L501.4405, L3300.6900, L501.3620, L3300.1200, L801.1541, L4600.0100, L3100.5430, L501.1000, L501.9520, L100.0100, L501.1105, L501.4100, L3100.5700, L3100.5800 ####[facility] [address] [place], [place], [phone] Alanine Aminotransferas (SGP T)on 03-26-2021 ALT [Catalytic activity/Vol] 17 U/L Normal 13-56 [facility] Comment on above: Performed By: #### L 501.6710, L501.1800, L101.9900, L501.1400, L501.4405, L3300.6900, L501.3620, L3300.1200, L801.1541, L4600.0100, L3100.5430, L501.1000, L501.9520, L100.0100, L501.1105, L501.4100, L3100.5700, L3100.5800 ####[facility] [address] [place], [address] Albumin, Serumon 03-26-2021 Albumin [Mass/Vol] 2.9 g/dL Low 3.2-5.0 [facility] Comment on above: Performed By: #### L 501.6710, L501.1800, L101.9900, L501.1400, L501.4405, L3300.6900, L501.3620, L3300.1200, L801.1541, L4600.0100, L3100.5430, L501.1000, L501.9520, L100.0100, L501.1105, L501.4100, L3100.5700, L3100.5800 ####[facility] [address] [place], [address] BUNon 03-26-2021 Urea nitrogen [Mass/Vol] 12 mg/dL Normal 7-18 [facility] Comment on above: Performed By: #### L 501.6710, L501.1800, L101.9900, L501.1400, L501.4405, L3300.6900, L501.3620, L3300.1200, L801.1541, L4600.0100, L3100.5430, L501.1000, L501.9520, L100.0100, L501.1105, L501.4100, L3100.5700, L3100.5800 ####[facility] [address] [place], [place], [phone] CBC W/Diff, Automatedon 10-0 5-2020 Absolute Lymph 1.25 X10 3/uL Normal 0.83-4.51 [facility] Comment on above: Performed By: #### L 501.6710, L501.1800, L101.9900, L501.1400, L501.4405, L3300.6900, L501.3620, L3300.1200, L801.1541, L4600.0100, L3100.5430, L501.1000, L501.9520, L100.0100, L501.1105, L501.4100, L3100.5700, L3100.5800 ####[facility] [address] [place], [place], [phone] Absolute Neut 3.1 X10 3/uL Normal 2.0-7.7 [facility] Comment on above: Performed By: #### L 501.6710, L501.1800, L101.9900, L501.1400, L501.4405, L3300.6900, L501.3620, L3300.1200, L801.1541, L4600.0100, L3100.5430, L501.1000, L501.9520, L100.0100, L501.1105, L501.4100, L3100.5700, L3100.5800 ####[facility] [address] [place], [place], [phone] Basophils/100 WBC (Bld) 0.8 % Normal 0-1 [facility] Comment on above: Performed By: #### L 501.6710, L501.1800, L101.9900, L501.1400, L501.4405, L3300.6900, L501.3620, L3300.1200, L801.1541, L4600.0100, L3100.5430, L501.1000, L501.9520, L100.0100, L501.1105, L501.4100, L3100.5700, L3100.5800 ####[facility] [address] [place], [place], [phone]) Eosinophils/100 WBC (Bld) 3.3 % Normal 0-5 [facility] Comment on above: Performed By: #### L 501.6710, L501.1800, L101.9900, L501.1400, L501.4405, L3300.6900, L501.3620, L3300.1200, L801.1541, L4600.0100, L3100.5430, L501.1000, L501.9520, L100.0100, L501.1105, L501.4100, L3100.5700, L3100.5800 ####[facility] [address] [facility] [place], [place], [phone]) Erythrocyte distribution width (RBC) [Ratio] 13.0 % Normal 11.6-14.6 [facility] Comment on above: Performed By: #### L 501.6710, L501.1800, L101.9900, L501.1400, L501.4405, L3300.6900, L501.3620, L3300.1200, L801.1541, L4600.0100, L3100.5430, L501.1000, L501.9520, L100.0100, L501.1105, L501.4100, L3100.5700, L3100.5800 ####[facility] [address] [place], [place], [phone]) Hematocrit (Bld) [Volume fraction] 40.7 % Normal 37-47 [facility] Comment on above: Performed By: #### L 501.6710, L501.1800, L101.9900, L501.1400, L501.4405, L3300.6900, L501.3620, L3300.1200, L801.1541, L4600.0100, L3100.5430, L501.1000, L501.9520, L100.0100, L501.1105, L501.4100, L3100.5700, L3100.5800 ####[facility] [address] [facility] [place], [place], [phone] Hemoglobin (Bld) [Mass/Vol] 13.5 g/dL Normal 12.0-15.0 [facility] Comment on above: Performed By: #### L 501.6710, L501.1800, L101.9900, L501.1400, L501.4405, L3300.6900, L501.3620, L3300.1200, L801.1541, L4600.0100, L3100.5430, L501.1000, L501.9520, L100.0100, L501.1105, L501.4100, L3100.5700, L3100.5800 ####[facility] [address] [facility]. [place], [place], [phone] IG% 0.200 Normal 0.0-0.9 [facility] Comment on above: Result Comment: IG% - Immature Granulocytes (promyelocytes, myelocytes and metamyelocytes) > 1% indicates that a LEFT SHIFT is Present. Performed By: #### L 501.6710, L501.1800, L101.9900, L501.1400, L501.4405, L3300.6900, L501.3620, L3300.1200, L801.1541, L4600.0100, L3100.5430, L501.1000, L501.9520, L100.0100, L501.1105, L501.4100, L3100.5700, L3100.5800 ####[facility] [address] [facility]. [place], [place], [phone]) Lymphocytes/100 WBC (Bld) 25.4 % Normal 19-41 [facility] Comment on above: Performed By: #### L 501.6710, L501.1800, L101.9900, L501.1400, L501.4405, L3300.6900, L501.3620, L3300.1200, L801.1541, L4600.0100, L3100.5430, L501.1000, L501.9520, L100.0100, L501.1105, L501.4100, L3100.5700, L3100.5800 ####[facility] [address] [facility] [place], [place], [phone]) MCH (RBC) [Entitic mass] 31.5 pg Normal 27.0-32.0 [facility] Comment on above: Performed By: #### L 501.6710, L501.1800, L101.9900, L501.1400, L501.4405, L3300.6900, L501.3620, L3300.1200, L801.1541, L4600.0100, L3100.5430, L501.1000, L501.9520, L100.0100, L501.1105, L501.4100, L3100.5700, L3100.5800 ####[facility] [address] [facility]. [place], [place], [phone] MCHC (RBC) [Mass/Vol] 33.2 g/dL Normal 32-36 [facility] Comment on above: Performed By: #### L 501.6710, L501.1800, L101.9900, L501.1400, L501.4405, L3300.6900, L501.3620, L3300.1200, L801.1541, L4600.0100, L3100.5430, L501.1000, L501.9520, L100.0100, L501.1105, L501.4100, L3100.5700, L3100.5800 ####[facility] [address] [place], [address] MCV (RBC) [Entitic vol] 94.9 fL Normal 81-99 [facility] Comment on above: Performed By: #### L 501.6710, L501.1800, L101.9900, L501.1400, L501.4405, L3300.6900, L501.3620, L3300.1200, L801.1541, L4600.0100, L3100.5430, L501.1000, L501.9520, L100.0100, L501.1105, L501.4100, L3100.5700, L3100.5800 ####[facility] [address] [place], [address] Monocytes/100 WBC (Bld) 6.9 % Normal 0-10 [facility] Comment on above: Performed By: #### L 501.6710, L501.1800, L101.9900, L501.1400, L501.4405, L3300.6900, L501.3620, L3300.1200, L801.1541, L4600.0100, L3100.5430, L501.1000, L501.9520, L100.0100, L501.1105, L501.4100, L3100.5700, L3100.5800 ####[facility] [address] [place], [address] Neutrophils/100 WBC (Bld) 63.4 % Normal 47-70 [facility] Comment on above: Performed By: #### L 501.6710, L501.1800, L101.9900, L501.1400, L501.4405, L3300.6900, L501.3620, L3300.1200, L801.1541, L4600.0100, L3100.5430, L501.1000, L501.9520, L100.0100, L501.1105, L501.4100, L3100.5700, L3100.5800 ####[facility] [address] [facility]. [place], [place], [phone] Nucleated RBC (Bld) [#/Vol] 0 10*3/uL Normal 0-5 [facility] Comment on above: Performed By: #### L 501.6710, L501.1800, L101.9900, L501.1400, L501.4405, L3300.6900, L501.3620, L3300.1200, L801.1541, L4600.0100, L3100.5430, L501.1000, L501.9520, L100.0100, L501.1105, L501.4100, L3100.5700, L3100.5800 ####[facility] [address] [facility]. [place], [place], [phone] Platelet mean volume (Bld) [Entitic vol] 10.4 fL Normal 6.2-12.0 [facility] Comment on above: Performed By: #### L 501.6710, L501.1800, L101.9900, L501.1400, L501.4405, L3300.6900, L501.3620, L3300.1200, L801.1541, L4600.0100, L3100.5430, L501.1000, L501.9520, L100.0100, L501.1105, L501.4100, L3100.5700, L3100.5800 ####[facility] [address] [facility]. [place], [place], [phone]) Platelets (Bld) [#/Vol] 184 10*3/uL Normal 150-450 [facility] Comment on above: Performed By: #### L 501.6710, L501.1800, L101.9900, L501.1400, L501.4405, L3300.6900, L501.3620, L3300.1200, L801.1541, L4600.0100, L3100.5430, L501.1000, L501.9520, L100.0100, L501.1105, L501.4100, L3100.5700, L3100.5800 ####[facility] [address] [place], [place], [phone] RBC (Bld) [#/Vol] 4.29 10*6/uL Normal 4.2-5.4 [facility] Comment on above: Performed By: #### L 501.6710, L501.1800, L101.9900, L501.1400, L501.4405, L3300.6900, L501.3620, L3300.1200, L801.1541, L4600.0100, L3100.5430, L501.1000, L501.9520, L100.0100, L501.1105, L501.4100, L3100.5700, L3100.5800 ####[facility] [address] [place], [place], [phone] RDW SD 45.4 fl High 35.1-43.9 [facility] Comment on above: Performed By: #### L 501.6710, L501.1800, L101.9900, L501.1400, L501.4405, L3300.6900, L501.3620, L3300.1200, L801.1541, L4600.0100, L3100.5430, L501.1000, L501.9520, L100.0100, L501.1105, L501.4100, L3100.5700, L3100.5800 ####[facility] [address] [place], [place], [phone] WBC (Bld) [#/Vol] 4.9 10*3/uL Normal 4.4-11.0 [facility] Comment on above: Performed By: #### L 501.6710, L501.1800, L101.9900, L501.1400, L501.4405, L3300.6900, L501.3620, L3300.1200, L801.1541, L4600.0100, L3100.5430, L501.1000, L501.9520, L100.0100, L501.1105, L501.4100, L3100.5700, L3100.5800 ####[facility] [address] [place], [place], [phone] CPK Total, Creatine Kinaseon 03-26-2021 CPK TOTAL 52 U/L Normal 26-192 [facility] Comment on above: Performed By: #### L 501.6710, L501.1800, L101.9900, L501.1400, L501.4405, L3300.6900, L501.3620, L3300.1200, L801.1541, L4600.0100, L3100.5430, L501.1000, L501.9520, L100.0100, L501.1105, L501.4100, L3100.5700, L3100.5800 ####[facility] [address] [place], [place], [phone] CRPon 03-26-2021 C-REACTIVE PROT < 2.90 Normal 0.0-3.0 [facility] Comment on above: Result Comment: C-Re active Protein (CRP) provides useful information for the diagnosis, therapy and monitoring of inflammatory processes and associated diseases. For the evaluation of Relative Risk for Cardiovascular Disease, a High Sensitivity CRP (HSCRP) should be ordered. Performed By: #### L 501.6710, L501.1800, L101.9900, L501.1400, L501.4405, L3300.6900, L501.3620, L3300.1200, L801.1541, L4600.0100, L3100.5430, L501.1000, L501.9520, L100.0100, L501.1105, L501.4100, L3100.5700, L3100.5800 ####[facility] [address] [place], [place], [phone] Cardiology Visit Reporton Cardiology Visit Report [facility] [address] [place], [place] [address] OFFICE VISIT Date of Service: 03/26/21 MR#: [id number] Acct: [id number] Name: RANDOLPH HUNTER Rep #: [id number] : 1950 Provider: LUIS ALBERTO huston Age/Sex: 70/F [place] [facility] [place] Status: Signed HPI HPI History of Present Illness Details: This is a 70-year-old white female who presents today for outpatient cardiovascular consultation based on concerns of a history of underlying CAD, PCI, carotid artery disease, hyperlipidemia, hypertension, superimposed upon a history of diabetes mellitus and DVT/PE who is previously been cared for by [facility] cardiology. She denies chest, arm, jaw, or neck discomfort. She continues with shortness of breath with exertion. This is not new or worsening. She denies symptoms of shortness of breath at rest, orthopnea, PND, sudden weight gain. She continues with bilateral lower extremity edema that does not appear to be worsening. She denies chronic cough. She denies palpitations, lightheadedness, dizziness, near syncope, or syncopal episodes. She denies claudication issues. She denies fever or chills. She denies blood in urine, blood in stool, or epistaxis. She denies myalgia. She denies unexplainable fatigue. Her exercise tolerance is limited in which most time is spent in chair or bed. She states her home INR has been "steady". She states her PCP will be rechecking Lipid and carotid artery ultrasound. Intake Vital Signs 03/26/21 09:38 Height 5 ft 6 in Weight: 200 lb BMI 32.3 BP 104/70 Blood Pressure Location Lt brachial Position Sitting Respiration 18 Pulse 62 Pulse Source Monitor Pulse Oximetry (%) 98 Intake Visit Reasons: 6 M FU Jockey'S Agent Required: No Accompanied by: none Is patient in pain?: No Allergies cephalexin monohydrate [From Keflex] Allergy (Verified 03/26/21 09:39) Unknown ciprofloxacin Allergy (Verified 03/26/21 09:39) Unknown erythromycin base [Erythromycin Base] Allergy (Verified 03/26/21 09:39) Unknown naproxen [From Naprosyn] Allergy (Verified 03/26/21 09:39) Unknown paroxetine HCl [From Paxil] Allergy (Verified 03/26/21 09:39) Unknown Penicillins Allergy (Verified 03/26/21 09:39) Unknown promethazine HCl [From Phenergan] Allergy (Verified 03/26/21 09:39) Unknown Muoirzx-Qdu-Wgw Reductase Inhibitor Adverse Reaction (Severe, Verified 03/26/21 09:39) Myalgias PAPER TAPE Adverse Reaction (Uncoded 08/20/20 13:05) Rash Medications albuterol sulfate 1 - 2 puff INHALATION Q4H PRN PRN 06/06/14 [History Confirmed 03/26/21] bupropion HCl 150 mg PO BID 06/06/14 [History Confirmed 03/26/21] fluticasone propionate 2 spray NASAL DAILY 06/06/14 [History Confirmed 03/26/21] albuterol sulfate 2.5 mg INHALATION Q4H PRN PRN 06/26/17 [History Confirmed 03/26/21] hydrocodone-acetaminophen 1 tab PO Q6H PRN PRN #10 tab 06/30/17 [Rx Confirmed 03/26/21] aspirin 81 mg tablet,delayed release 81 mg PO DAILY 05/26/19 [History Confirmed 03/26/21] cholecalciferol (vitamin D3) 50 mcg (2,000 unit) tablet 2,000 unit PO DAILY 05/26/19 [History Confirmed 03/26/21] gabapentin 600 mg tablet 600 mg PO TID 05/26/19 [History Confirmed 03/26/21] levothyroxine 125 mcg tablet 125 mcg PO DAILY 05/26/19 [History Confirmed 03/26/21] mirtazapine 30 mg tablet 30 mg PO QHS tab 05/26/19 [History Confirmed 03/26/21] multivitamin 1 tab PO DAILY 05/26/19 [History Confirmed 03/26/21] nitroglycerin 0.4 mg sublingual tablet 0.4 mg SUBLINGUAL Q5-15M PRN 05/26/19 [History Confirmed 03/26/21] ramipril 5 mg capsule 5 mg PO DAILY 05/26/19 [History Confirmed 03/26/21] warfarin 2.5 mg tablet 2.5 mg PO .COMPLEX 05/26/19 [History Confirmed 03/26/21] calcium carb-D3-mag yui12-posl 1 ea PO DAILY 06/12/19 [History Confirmed 03/26/21] insulin glargine 10 unit SQ QHS 06/12/19 [History Confirmed 03/26/21] cyanocobalamin (vitamin B-12) 1,000 mcg/mL injection solution 100 mcg IM QMONTH 08/20/20 [History Confirmed 03/26/21] magnesium oxide 500 mg capsule 500 mg PO DAILY 08/20/20 [History Confirmed 03/26/21] melatonin 10 mg tablet 10 mg PO HS PRN 08/20/20 [History Confirmed 03/26/21] metoprolol succinate 100 mg tablet,extended release 24 hr 100 mg PO DAILY #90 tab 08/20/20 [Rx Confirmed 03/26/21] metformin 850 mg tablet 850 mg PO DAILY tab 03/26/21 [History Confirmed 03/26/21] PFSH Medical History Acute respiratory failure with hypoxia Anxiety and depression Atherosclerotic heart disease of [place] coronary artery without angina pectoris CAD (coronary artery disease) Carotid artery disease Essential hypertension History of cerebral palsy History of fibromyalgia History of hypothyroidism History of pulmonary embolism History of rheumatoid arthritis HTN (hypertension) Hx of systemic lupus eryt (more content not included)... Normal [facility] Erythrocyte Sed Rateon 03-26 SED RATE 11 mm/hr Normal 0-30 [facility] Comment on above: Performed By: #### L 501.6710, L501.1800, L101.9900, L501.1400, L501.4405, L3300.6900, L501.3620, L3300.1200, L801.1541, L4600.0100, L3100.5430, L501.1000, L501.9520, L100.0100, L501.1105, L501.4100, L3100.5700, L3100.5800 ####[facility] [address] [place], [place], [phone] Serum Creatinine AND GFRon 1 Creatinine [Mass/Vol] 0.93 mg/dL Normal 0.55-1.02 [facility] Comment on above: Result Comment: The validity of the calculated GFR GFRAA in patients over 70 years has not been determined. Clinical correlation is essential. Performed By: #### L 501.6710, L501.1800, L101.9900, L501.1400, L501.4405, L3300.6900, L501.3620, L3300.1200, L801.1541, L4600.0100, L3100.5430, L501.1000, L501.9520, L100.0100, L501.1105, L501.4100, L3100.5700, L3100.5800 ####[facility] [address] [place], [place], [phone] EST GFR - AA 77 mL/min Normal >60 [facility] Comment on above: Result Comment: Afri can Salvadorean GFR Calc Performed By: #### L 501.6710, L501.1800, L101.9900, L501.1400, L501.4405, L3300.6900, L501.3620, L3300.1200, L801.1541, L4600.0100, L3100.5430, L501.1000, L501.9520, L100.0100, L501.1105, L501.4100, L3100.5700, L3100.5800 ####[facility] [address] [place], [address] GFR/1.73 sq M.predicted among non-blacks MDRD (S/P/Bld) [Vol rate/Area] 63 mL/min/{1.73_m2} Normal >60 [facility] Comment on above: Result Comment: Non- GFR Calc Performed By: #### L 501.6710, L501.1800, L101.9900, L501.1400, L501.4405, L3300.6900, L501.3620, L3300.1200, L801.1541, L4600.0100, L3100.5430, L501.1000, L501.9520, L100.0100, L501.1105, L501.4100, L3100.5700, L3100.5800 ####[facility] [address] [place], [address] Thyroid Stim Hormone (TSH)on 03-26-2021 TSH 12.40 uIU/mL High 0.358-3.74 [facility] Comment on above: Performed By: #### L 501.6710, L501.1800, L101.9900, L501.1400, L501.4405, L3300.6900, L501.3620, L3300.1200, L801.1541, L4600.0100, L3100.5430, L501.1000, L501.9520, L100.0100, L501.1105, L501.4100, L3100.5700, L3100.5800 ####[facility] [address] [place], [address] Uric Acidon 03-26-2021 URIC 5.0 mg/dL Normal 2.6-6.0 [facility] Comment on above: Result Comment: The drugs N-Acetylcysteine and Metamizole may falsely depress this assay. Performed By: #### L 501.6710, L501.1800, L101.9900, L501.1400, L501.4405, L3300.6900, L501.3620, L3300.1200, L801.1541, L4600.0100, L3100.5430, L501.1000, L501.9520, L100.0100, L501.1105, L501.4100, L3100.5700, L3100.5800 ####[facility] [address] [place], [place], [phone] Microalbumin, 24 hour Urineo n 03-11-2021 Microalbumin,UR 7.9 mg/L Normal NOT. EST. [facility] Comment on above: Performed By: #### L [id number] #### [facility] [address] [place], [place], [id number] UR COLLECT TIME 24.0 HR Normal 24.0-24.0 [facility] Comment on above: Performed By: #### L 502.0425 #### [facility] [address] [place], [address] UR Microalb 24H 7.3 mg/24 HR Normal 0.0-30.0 [facility] Comment on above: Performed By: #### L 502.0425 #### [facility] [address] [place], [address] UR TOTAL VOLUME 925 ML Normal [facility] Comment on above: Performed By: #### L 502.0425 #### [facility] [address] [place], [address] XR Shoulder - right 3 Viewso n 01-29-2021 IMPRESSION: 1. Stable mild acromioclavicular degenerative changes. Pharmaceutical Operator: CEM Transcribe Date/Time: Jan 29 2021 2:19P Dictated by : MIN GARCIA MD This examination was interpreted and the report reviewed and electronically signed by: MIN GARCIA MD on Jan 29 2021 2:21PM [facility] DIVISION OF RADIOLOGY * * *Final Report* * * DATE OF EXAM: Jan 29 2021 1:03PM WOX 5253 - XR SHLDR >/=3V AP/MARTIN AP/OTHR RT / PROCEDURE REASON: multiple diagnoses * * * * Physician Interpretation * * * * SHOULDER RADIOGRAPHS - RIGHT HISTORY: Chronic right shoulder pain TECHNIQUE: 4 views COMPARISON: Radiographs 01/07/2011 RESULT: The glenohumeral joint appears normally aligned without degenerative changes. The acromioclavicular joint demonstrates mild hypertrophic osteoarthrosis. DIVISION OF RADIOLOGY Provider, [facility] - 01/29/2021 * * *Final Report* * * DATE OF EXAM: Jan 29 2021 1:03PM WOX 5253 - XR SHLDR >/=3V AP/MARTIN AP/OTHR RT / PROCEDURE REASON: multiple diagnoses * * * * Physician Interpretation * * * * SHOULDER RADIOGRAPHS - RIGHT HISTORY: Chronic right shoulder pain TECHNIQUE: 4 views COMPARISON: Radiographs 01/07/2011 RESULT: The glenohumeral joint appears normally aligned without degenerative changes. The acromioclavicular joint demonstrates mild hypertrophic osteoarthrosis. IMPRESSION IMPRESSION: 1. Stable mild acromioclavicular degenerative changes. Pharmaceutical Operator: CEM Transcribe Date/Time: Jan 29 2021 2:19P Dictated by : MIN GARCIA MD This examination was interpreted and the report reviewed and electronically signed by: MIN GARCIA MD on Jan 29 2021 2:21PM EST [facility] Radiology Study observation (narrative) [facility] XR Shoulder - right 3 ViewsO rdered By: [facility] Provider on 01-29-2021 [facility] CNOVon 08-12-2017 CNOV Office Visit (AGCARDW[facility]) -RANDOLPH HUNTER ([id number]) 1950 FDate Time Provider Department08/12/17 1:00 PM DAVID ERWIN AGCARDWST During your visit today, we recorded the following information about you: Pulse Blood pressure Weight Height 78/minute 116/76 104.4 kg 1.676 Horacio Erwin MD 08/12/2017 2:54 PM SignedPERTINENT CARDIAC HISTORYASHD - PCI LAD 2003, 2004 and PCI Cx 2007HTNHL - statin averseDMPVD - patch repairCarotid artery diseasePulmonary emboli - chronic a/cNo LOYDA-I due to low BPADHERENCE TO GUIDELINESACE-I or ARB for HF with prior LVEFANDlt;40 (NQF 0081) - metASA or Plavix for ASHD (NQF 0067) - metBeta nisha for ASHD with prior AK or prior LVEFANDlt;40 (NQF 0070) - metBeta nisha for HF with prior LVEFANDlt;40 (NQF 0083) - metACE-I or ARB for ASHD with DM or prior LVEFANDlt;40 (NQF 0066) - metStatin therapy for ASHD or FHL or DM - declinedBMI documented and plan if ANDgt;25 (NQ 0421) - lifestyle recommendation formTobacco use screening and referral (NQ 0028) - lifestyle recommendation formRecommendation for whole food, plant based diet - lifestyle recommendation formCLINICAL IMPRESSION/PLAN:Randolph Hunter is doing well. Her coronary disease is stable. She's having noangina. Blood pressure and pulse are well controlled.She's been advised to add aspirin to her regimen. She will have labs and followup with Dr. Coleman in the near future.I will see her in 8 months or as needed. If there is increased chest pain orshortness of breath, she has been advised to contact me.Written and verbal health teaching given to patient, patient verbalizesunderstanding and agrees with treatment plan.This note was generated using echoecho voice recognition system, and there may besome incorrect words, spellings, and punctuation that were not noted inchecking the note before saving.DIAGNOSIS FOR VISIT:ASHDHypertensionHISTORY OF PRESENT ILLNESSCyviji Hunter returns for follow-up of multiple cardiac issues, as noted above.She reports stable exercise tolerance. She has used no nitroglycerin since lastvisit. She was hospitalized with pneumonia over the winter. She's had minimaledema. She denies syncope, TIAs, amaurosis and claudication. She's had minimalpalpitations.ALLERGIES: ALLERGIESAllergen Reactions- Phenergan Vc [Prome* Mental Status Change- Ciprofloxacin Rash Not hives.- Erythromycin Itching throat- Keflex [Cephalexin] Itching throat- Naprosyn [Naproxen] Intolerance didn't work- Paxil [Paroxetine H* Mental Status Change- Penicillins Hives ANDquot; DioxicillinANDquot;- Paper Tape [Other] Intolerance removes skinCURRENT OUTPATIENT MEDICATIONS:metoprolol succinate ER (TOPROL XL) 100 mg Tb24 Take 1 tablet by mouth oncedaily.Milnacipran (SAVELLA) 100 mg tab Take 1 tablet by mouth once daily.warfarin (COUMADIN) 5 mg tablet Take 1 tablet by mouth once daily. and Thursday alternating with 2.5 mg on remaining days of the week oras directed.warfarin (COUMADIN) 2.5 mg tablet Take 1 tablet by mouth once daily. Thursday and Thursday or as directed alternating with 5 mg dose.insulin glargine (LANTUS SOLOSTAR) 100 unit/mL (3 mL) inpn Inject 15 Unitssubcutaneously daily at bedtime.guaiFENesin (MUCINEX) 600 mg 12 hr tablet Take 2 tablets by mouth twice daily.levothyroxine (SYNTHROID) 125 mcg tablet Take 1 tablet by mouth once daily.Take on empty stomach. For ThyroidHYDROcodone-acetaminoph en (NORCO) 5-325 mg per tablet Take 1 tablet by mouthevery 6 hours as needed for up to 30 days.Earliest Fill Date: 08/10/17buPROPion SR (ZYBAN SR; WELLBUTRIN SR) 150 mg 12 hr tablet TAKE 1 TABLET BYMOUTH TWICE A DAYgabapentin (NEURONTIN) 600 mg tablet TAKE 1 TABLET BY MOUTH 3 TIMES DAILYmetFORMIN (GLUCOPHAGE) 850 mg tablet TAKE 1 TABLET BY MOUTH 3 TIMES DAILYzolpidem (AMBIEN) 10 mg tab Take 0.5 tablets by mouth at bedtime as needed.insulin lispro (HUMALOG KWIKPEN) 100 unit/mL inpn Inject 5 Units subcutaneouslyw MEALS. As directed.ramipril (ALTACE) 5 mg capsule Take 1 capsule by mouth once daily.mirtazapine (REMERON) 15 mg tablet Take 1 tablet by mouth daily at bedtime.Nebulizer NEBULIZER FOR HOME USE. DX: bronchitisalbuterol (PROVENTIL) 2.5 mg /3 mL (0.083 %) nebulizer solution Use 3 mL vianebulizer every 4 hours as needed for Wheezing/Shortness of Breath. Use over5-15minutes.albuterol HFA (VENTOLIN HFA) 90 mcg/actuation inhaler Inhale 2 Puffs asinstructed every 4 hours as needed for Wheezing/Shortness of Breath.warfarin (COUMADIN) 5 mg tablet Take 5 mg on Thursday and , 2.5 mgremaining days of the weekfamotidine (PEPCID) 20 mg tablet Take 1 tablet by mouth twice daily.benzonatate (TESSALON PERLE) 100 mg capsule Take 1 capsule by mouth three timesdaily as needed for Cough.hydroxychloroquine (PLAQUENIL) 200 mg tablet Take 1.5 tablets by mouth oncedaily.MULTIVITAMIN ORAL Take by mouth. OTC One A Day Womensmenthol (BIOFREEZE, MENTHOL,) 4 % gel Apply 1 application to affected area asneeded.fluticasone (FLONASE) 50 mcg/actuation nasal spray Use 2 Sprays in each nostrilonce daily. Rinse mouth after use.blood sugar diagnostic (ONETOUCH ULTRA TEST) test strip Use as instructed 3times daily . Dx 250.00nitroglycerin sublingual (NITROQUICK) 0.4 mg SL tablet Dissolve 1 tablet underthe tongue every 5 minutes as needed for Chest Pain. FOR CHEST PAIN. IF NORELIEF CALL 911Spirometers and Accessories gui Incentive spirometer. Deep breathe hourlywhile awake.albuterol HFA (PROVENTIL HFA) 90 mcg/actuation inhaler 1 to 2 puffs every 4hours as neededPT/INR test meter (COAGUCHEK XS PRO) misc Check Protime weekly. Dx: pulmonaryembolism, V58.61COMPOUNDED PRESCRIPTION Hospital bed all electric with adjustable head andfeet. 415.19; 343.8; 782.3; 787.91; V43.65albuterol 90 mcg/actuation aero Inhale 1-2 Puffs as instructed every 4 hours asneeded (shortness of breath).aspirin, enteric coated (ASPIR-LOW) 81 mg EC tablet Take 1 tablet by mouth oncedaily.PHYSICAL EXAMINATION:VITAL SIGNS: BP 116/76 Pulse 78 Ht 5' 6ANDquot; (1.68m) Wt 230 lb 3.2 oz(104.4kg) BMI 37.17 kg/(m2).Chest: Clear to percussion and auscultation. Trachea is midline. Air entry isequal. Cardiac: Regular rhythm. S1 and S2 are normal. PMI is nondisplaced.There is a soft systolic ejection murmur. Carotids are brisk without bruits.JVP is less than 10 cm. Abdomen: Soft and nontender. There are no pulsatilemasses or bruits. No liver enlargement. Bowel sounds are active.Extremities: Trace edema. Pulses are intact and symmetrical.Recent labs were reviewed. Renal function is normal. TSH was low, but dose hasbeen adjusted. LDL was 105.Recent echocardiogram was reviewed. With ventricular function is normal.Her tachycardia has responded to increased doses of metoprolol.Electronically Signed:David Erwin MDFebruary 2017 1:17 [facility]: Lin Ashley MD 08/12/2017 1:17 PM SignedLIFESTYLE CHANGEA healthy lifestyle is the most important component of your overall treatmentplan. Please give serious thought to the following areas and commit to makinglong term changes.EAT A WHOLE FOOD, PLANT BASED DIETThe nutrition your body gets is more important than the medicine you take.What matters most is the overall way you eat. We encourage you to minimize theuse of animal products (which include dairy and all meats except fatty fish)and use whole, unprocessed plant foods to provide your protein, vitamins andother nutrients. We have a lot of information to share with you on this topic. We also hold Shared Medical Appointments, where you can come visit with in the company of other patients and spend over an hour talking aboutthe challenges of changing the way you eat. This is not a ANDquot;dietANDquot;.It is a way of life that you will keep with you.EXERCISE REGULARLYIt is not important to spend hours in the gym, lifting weights and perspiringheavily. A total of 2-3 hours per week of aerobic (causing you to bemoderately short of breath) exercise is sufficient to improve your health.Talk to us before you begin a new exercise program, if you have heart diseaseor experience shortness of breath or chest pain.REDUCE STRESSChronic emotional and physical stress leads to disease. Ways of reducingstress include meditation, visualization, prayer, yoga and other forms ofrelaxation therapy. Consistency is the willis. Find a technique that works foryou and do it every day.CULTIVATE RELATIONSHIPSLoneliness and isolation have a major negative impact on health. Seek outothers who can love, care for and nurture you. Avoid hurtful relationships.MAINTAIN IDEAL BODY WEIGHTThe best way to do this is to do all the things above. Our bodies naturallyfind the right weight if we keep moving and feed ourselves the right food. Ifyour BMI is greater than 25, we strongly recommend a referral to a weightmanagement program. Please speak to us or your family physician aboutavailable programs.AVOID NICOTINE IN ALL FORMSThis includes all tobacco products, whether chewed, smoked, vaped, or rubbed onthe skin. Smoking cessation programs, which can make use of tobaccosubstitutes, medications to suppress cravings and behavior management, areavailable. Please contact your family physician about programs in your area.Referring Provider: DAVID ERWIN [[id number]]Allergies As of Date: 08/12/2017 Noted Allergy ReactionPHENERGAN VC (PROMETHAZINE-PHENYL* 5 1 - Mental Status ChangeCIPROFLOXACIN 11/04/2010 2 - Rash Comments: Not hives.ERYTHROMYCIN 04/07/2005 9 - Itching Comments: throatKEFLEX (CEPHALEXIN) 04/18/2005 9 - Itching Comments: throatNAPROSYN (NAPROXEN) 04/18/2005 5 - Intolerance Comments: didn't workPAXIL (PAROXETINE HCL) 04/10/2005 1 - Mental Status ChangePENICILLINS 03/04/2011 4 - Hives Comments: " Dioxicillin"paper tape [Other] 11/03/2011 5 - Intolerance Comments: removes skinDate Reviewed: 08/12/2017Reviewed by: Gui (Rn) NAWAF Gallego - Fully AssessedReason for Visit: Follow Up [171] Cmt: 6 monthPrimary Visit Diagnosis:ASHD (arteriosclerotic heart disease) [I25.10] Other Visit Diagnosis:Hypertension, essential [I10]Order(s):metoprolol succinate ER (TOPROL XL) 100 mg Pi12Qwhi 1 tablet by mouth once daily.Disp: 90 tabletRfl: 3 aspirin, enteric coated (ASPIR-LOW) 81 mg EC tabletTake 1 tablet by mouth once daily.Disp: Rfl:Prescriptions as of 08/12/2017 Sig: METOPROLOL SUCCINATE ER 100 M* Take 1 tablet by mouth once d* MILNACIPRAN 100 MG TABLET Take 1 tablet by mouth once d* WARFARIN 5 MG TABLET Take 1 tablet by mouth once d* WARFARIN 2.5 MG TABLET Take 1 tablet by mouth once d* INSULIN GLARGINE (U-100) 100 * Inject 15 Units subcutaneousl* GUAIFENESIN ER 600 MG TABLET,* Take 2 tablets by mouth twice* LEVOTHYROXINE 125 MCG TABLET Take 1 tablet by mouth once d* HYDROCODONE 5 MG-ACETAMINOPHE* Take 1 tablet by mouth every * BUPROPION HCL SR 150 MG TABLE* TAKE 1 TABLET BY MOUTH TWICE* GABAPENTIN 600 MG TABLET TAKE 1 TABLET BY MOUTH 3 BLANCA* METFORMIN 850 MG TABLET TAKE 1 TABLET BY MOUTH 3 BLANCA* ZOLPIDEM 10 MG TABLET Take 0.5 tablets by mouth at * INSULIN LISPRO (U-100) 100 UN* Inject 5 Units subcutaneously* RAMIPRIL 5 MG CAPSULE Take 1 capsule by mouth once * MIRTAZAPINE 15 MG TABLET Take 1 tablet by mouth daily * COMPOUNDED PRESCRIPTION NEBULIZER FOR HOME USE. DX: * ALBUTEROL SULFATE 2.5 MG/3 ML* Use 3 mL via nebulizer every * ALBUTEROL SULFATE HFA 90 MCG/* Inhale 2 Puffs as instructed * WARFARIN 5 MG TABLET Take 5 mg on Thursday and * FAMOTIDINE 20 MG TABLET Take 1 tablet by mouth twice * BENZONATATE 100 MG CAPSULE Take 1 capsule by mouth three* HYDROXYCHLOROQUINE 200 MG TAB* Take 1.5 tablets by mouth onc* MULTIVITAMIN ORAL Take by mouth. OTC One A Day* MENTHOL 4 % TOPICAL GEL Apply 1 application to affect* FLUTICASONE 50 MCG/ACTUATION * Use 2 Sprays in each nostril * BLOOD SUGAR DIAGNOSTIC STRIPS Use as instructed 3 times anna* NITROGLYCERIN 0.4 MG SUBLINGU* Dissolve 1 tablet under the t* SPIROMETERS AND ACCESSORIES Incentive spirometer. Deep b* ALBUTEROL SULFATE HFA 90 MCG/* 1 to 2 puffs every 4 hours as* PROTHROMBIN TIME/INR TEST MET* Check Protime weekly. Dx: pul* COMPOUNDED PRESCRIPTION Hospital bed all electric wit* ALBUTEROL 90 MCG/ACTUATION AE* Inhale 1-2 Puffs as instructe* ASPIRIN 81 MG TABLET,DELAYED * Take 1 tablet by mouth once d*Problem List As Of Date 08/12/2017 Noted Resolved Type 2 diabetes, controlled, with neuropathy (H* PURE HYPERCHOLESTEROLEM [E78.00] Acquired hypothyroidism [E03.9] INVALID FOR* VENOUS INSUFFICIENCY NOS [I87.2] BENIGN HYPERTENSION [I10] HIRSUTISM [L68.0] MORBID OBESITY [E66.01] ASTHMA UNSPECIFIED [J45.909] CHRONIC DEPRESSIVE PERSON [F34.1] EDEMA [R60.9] More... 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 Other pain disorders related to psychological f*INVALID FOR*11/08/2014 Osteomyelitis (HCC) [M86.9] INVALID FOR*09/29/2016 Thigh pain [M79.659] INVALID FOR* DM w/o complication type II [E11.9] INVALID FOR*11/08/2014 History of pulmonary embolism [Z86.711] INVALID FOR* Pulmonary embolism (HCC) [I26.99] INVALID FOR* More... Migraine headache with aura [G43.109] INVALID FOR* Carotid artery disease [I77.9] INVALID FOR* Family history of colon cancer [Z80.0] INVALID FOR*11/08/2014 Cough [R05] INVALID FOR*11/08/2014 Laryngitis [J04.0] INVALID FOR*11/08/2014 Sinusitis, acute [J01.90] INVALID FOR*11/08/2014 Hyperlipidemia [E78.5] INVALID FOR* Osteoarthrosis, unspecified whether generalized*INVALID FOR*12/26/2013 Diabetic ulcer of left foot associated with typ*INVALID FOR* Weakness of lower extremity [R29.898] INVALID FOR* Falls frequently [R29.6] INVALID FOR* Other instructions from your clinician: LIFESTYLE CHANGE A healthy lifestyle is the most important component of your overall treatment plan. 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 EAT A WHOLE FOOD, PLANT BASED DIET The nutrition your body gets is more important than the medicine you take. What matters most is the overall way you eat. We encourage you to minimize the use of animal products (which include dairy and all meats except fatty fish) and use whole, unprocessed plant foods to provide your protein, vitamins and other nutrients. We have a lot of information to share with you on this topic. We also hold Shared Medical Appointments, where you can come visit with Dr. Erwin in the company of other patients and spend over an hour talking about the challenges of changing the way you eat. This is not a "diet". It is a way of life that you will keep with you. EXERCISE REGULARLY It is not important to spend hours in the gym, lifting weights and perspiring heavily. A total of 2-3 hours per week of aerobic (causing you to be moderately short of breath) exercise is sufficient to improve your health. Talk to us before you begin a new exercise program, if you have heart disease or experience shortness of breath or chest pain. REDUCE STRESS Chronic emotional and physical stress leads to disease. Ways of reducing stress include meditation, visualization, prayer, yoga and other forms of relaxation therapy. Consistency is the willis. Find a technique that works for you and do it every day. CULTIVATE RELATIONSHIPS Loneliness and isolation have a major negative impact on health. Seek out others who can love, care for and nurture you. Avoid hurtful relationships. MAINTAIN IDEAL BODY WEIGHT The best way to do this is to do all the things above. Our bodies naturally find the right weight if we keep moving and feed ourselves the right food. If your BMI is greater than 25, we strongly recommend a referral to a weight management program. Please speak to us or your family physician about available programs. AVOID NICOTINE IN ALL FORMS This includes all tobacco products, whether chewed, smoked, vaped, or rubbed on the skin. Smoking cessation programs, which can make use of tobacco substitutes, medications to suppress cravings and behavior management, are available. Please contact your family physician about programs in your area.Prescriptions ordered this encounter Disp Refills Start End METOPROLOL SUCCINATE ER 100 MG TABLE* 90 t* 3 08/12/2017 Route: ORAL Sig: Take 1 tablet by mouth once daily. ASPIRIN 81 MG TABLET,DELAYED RELEASE 08/12/2017 Class: Med Update Route: ORAL Sig: Take 1 tablet by mouth once daily.Medications Discontinued During This Encounter metoprolol succinate ER (TOPROL XL) * 135 * 3 04/24/2017 08/12/2017 Class: Med Update Route: ORAL Sig: Take 2 tablets by mouth once daily. Disc: Reason for discontinue is not on file.Classic SmartForms filed during this visit:Extended VitalsEncounter Number: [id number] Status:Closed by DAVID ERWIN MD on 08/12/17 [facility] PROGRESSon 08-12-2017 PROGRESS HNO ID: [id number] thor: David Raya: (none)Author Type: PhysicianType: Progress NotesFiled: 08/12/2017 2:54 PMNote Text:PERTINENT CARDIAC HISTORYASHD - PCI LAD 2003, 2004 and PCI Cx 2007HTNHL - statin averseDMPVD - patch repairCarotid artery diseasePulmonary emboli - chronic a/cNo LOYDA-I due to low BPADHERENCE TO GUIDELINESACE-I or ARB for HF with prior LVEF<40 (NQF 0081) - metASA or Plavix for ASHD (NQF 0067) - metBeta nisha for ASHD with prior AK or prior LVEF<40 (NQF 0070) - metBeta nisha for HF with prior LVEF<40 (NQF 0083) - metACE-I or ARB for ASHD with DM or prior LVEF<40 (NQF 0066) - metStatin therapy for ASHD or FHL or DM - declinedBMI documented and plan if >25 (NQF 0421) - lifestyle recommendation formTobacco use screening and referral (NQF 0028) - lifestyle recommendationformRecommendati on for whole food, plant based diet - lifestyle recommendationformCLINICAL IMPRESSION/PLAN:Randolph Hunter is doing well. Her coronary disease is stable. She's havingno angina. Blood pressure and pulse are well controlled.She's been advised to add aspirin to her regimen. She will have labs andfollow up with Dr. Coleman in the near future.I will see her in 8 months or as needed. If there is increased chest painor shortness of breath, she has been advised to contact me.Written and verbal health teaching given to patient, patient verbalizesunderstanding and agrees with treatment plan.This note was generated using echoecho voice recognition system, and theremay be some incorrect words, spellings, and punctuation that were notnoted in checking the note before saving.DIAGNOSIS FOR VISIT:ASHDHypertensionHISTORY OF PRESENT ILLNESSCyviji Hunter returns for follow-up of multiple cardiac issues, as notedabove.She reports stable exercise tolerance. She has used no nitroglycerin sincelast visit. She was hospitalized with pneumonia over the winter. She's hadminimal edema. She denies syncope, TIAs, amaurosis and claudication. She'shad minimal palpitations.ALLERGIES:ALLERGI ESAllergen Reactions- Phenergan Vc [Prome* Mental Status Change- Ciprofloxacin Rash Not hives.- Erythromycin Itching throat- Keflex [Cephalexin] Itching throat- Naprosyn [Naproxen] Intolerance didn't work- Paxil [Paroxetine H* Mental Status Change- Penicillins Hives " Dioxicillin"- Paper Tape [Other] Intolerance removes skinCURRENT OUTPATIENT MEDICATIONS:metoprolol succinate ER (TOPROL XL) 100 mg Tb24 Take 1 tablet by mouthonce daily.Milnacipran (SAVELLA) 100 mg tab Take 1 tablet by mouth once daily.warfarin (COUMADIN) 5 mg tablet Take 1 tablet by mouth once daily. and Thursday alternating with 2.5 mg on remaining days of the weekor as directed.warfarin (COUMADIN) 2.5 mg tablet Take 1 tablet by mouth once daily.Thursday and Thursday or as directed alternating with 5 mgdose.insulin glargine (LANTUS SOLOSTAR) 100 unit/mL (3 mL) inpn Inject 15 Unitssubcutaneously daily at bedtime.guaiFENesin (MUCINEX) 600 mg 12 hr tablet Take 2 tablets by mouth twicedaily.levothyroxine (SYNTHROID) 125 mcg tablet Take 1 tablet by mouth oncedaily. Take on empty stomach. For ThyroidHYDROcodone-acetaminoph en (NORCO) 5-325 mg per tablet Take 1 tablet bymouth every 6 hours as needed for up to 30 days.Earliest Fill Date:08/10/17buPROPion SR (ZYBAN SR; WELLBUTRIN SR) 150 mg 12 hr tablet TAKE 1 TABLETBY MOUTH TWICE A DAYgabapentin (NEURONTIN) 600 mg tablet TAKE 1 TABLET BY MOUTH 3 TIMES DAILYmetFORMIN (GLUCOPHAGE) 850 mg tablet TAKE 1 TABLET BY MOUTH 3 TIMES DAILYzolpidem (AMBIEN) 10 mg tab Take 0.5 tablets by mouth at bedtime asneeded.insulin lispro (HUMALOG KWIKPEN) 100 unit/mL inpn Inject 5 Unitssubcutaneously w MEALS. As directed.ramipril (ALTACE) 5 mg capsule Take 1 capsule by mouth once daily.mirtazapine (REMERON) 15 mg tablet Take 1 tablet by mouth daily atbedtime.Nebulizer NEBULIZER FOR HOME USE. DX: bronchitisalbuterol (PROVENTIL) 2.5 mg /3 mL (0.083 %) nebulizer solution Use 3 mLvia nebulizer every 4 hours as needed for Wheezing/Shortness of Breath.Use over 5-15minutes.albuterol HFA (VENTOLIN HFA) 90 mcg/actuation inhaler Inhale 2 Puffs asinstructed every 4 hours as needed for Wheezing/Shortness of Breath.warfarin (COUMADIN) 5 mg tablet Take 5 mg on Thursday and , 2.5 mgremaining days of the weekfamotidine (PEPCID) 20 mg tablet Take 1 tablet by mouth twice daily.benzonatate (TESSALON PERLE) 100 mg capsule Take 1 capsule by mouth threetimes daily as needed for Cough.hydroxychloroquine (PLAQUENIL) 200 mg tablet Take 1.5 tablets by mouthonce daily.MULTIVITAMIN ORAL Take by mouth. OTC One A Day Womensmenthol (BIOFREEZE, MENTHOL,) 4 % gel Apply 1 application to affected areaas needed.fluticasone (FLONASE) 50 mcg/actuation nasal spray Use 2 Sprays in eachnostril once daily. Rinse mouth after use.blood sugar diagnostic (ONETOUCH ULTRA TEST) test strip Use as instructed3 times daily . Dx 250.00nitroglycerin sublingual (NITROQUICK) 0.4 mg SL tablet Dissolve 1 tabletunder the tongue every 5 minutes as needed for Chest Pain. FOR CHEST PAIN.IF NO RELIEF CALL 911Spirometers and Accessories gui Incentive spirometer. Deep breathehourly while awake.albuterol HFA (PROVENTIL HFA) 90 mcg/actuation inhaler 1 to 2 puffs every4 hours as neededPT/INR test meter (COAGUCHEK XS PRO) misc Check Protime weekly. Dx:pulmonary embolism, V58.61COMPOUNDED PRESCRIPTION Hospital bed all electric with adjustable head andfeet. 415.19; 343.8; 782.3; 787.91; V43.65albuterol 90 mcg/actuation aero Inhale 1-2 Puffs as instructed every 4hours as needed (shortness of breath).aspirin, enteric coated (ASPIR-LOW) 81 mg EC tablet Take 1 tablet by mouthonce daily.PHYSICAL EXAMINATION:VITAL SIGNS: BP 116/76 Pulse 78 Ht 5' 6" (1.68m) Wt 230 lb 3.2 oz(104.4kg) BMI 37.17 kg/(m2).Chest: Clear to percussion and auscultation. Trachea is midline. Airentry is equal. Cardiac: Regular rhythm. S1 and S2 are normal. PMI isnondisplaced. There is a soft systolic ejection murmur. Carotids arebrisk without bruits. JVP is less than 10 cm. Abdomen: Soft andnontender. There are no pulsatile masses or bruits. No liverenlargement. Bowel sounds are active. Extremities: Trace edema. Pulsesare intact and symmetrical.Recent labs were reviewed. Renal function is normal. TSH was low, but dosehas been adjusted. LDL was 105.Recent echocardiogram was reviewed. With ventricular function is normal.Her tachycardia has responded to increased doses of metoprolol.Electronically Signed:David Erwin MDFebruary 2017 1:17 [facility]: Vishnu Coleman MD [facility] OBSOLETEon 04-06-2017 OBSOLETE Refill (AGCARDWST) -RANDOLPH HUNTER ([id number]) 1950 [facility] Khqwlycmdi60/16/17 DAVID ERWIN During your visit today, we recorded the following information about you:Gui Gallego, RN, RN 04/06/2017 1:59 PM SignedPatient phones requesting refills as follows:Pending Prescriptions Disp Refills METOPROLOL SUCCINATE ER 50 MG TABLET,EXTENDED RELEASE 24 HR 135 tablet 3 Sig: Take 1.5 tablets by mouth once daily. IRA: No Please review and advise.Gui Jh Gallegodante has been identified by name and date of : YesRX INSTRUCTIONS:Patient aware RX will be sent to pharmacy. No need to notify patient.Ammy Galvez MD 04/06/2017 3:55 PM SignedThe following approved medication requests have been transmitted electronically.Signed Prescriptions Disp Refills metoprolol succinate ER (TOPROL XL) 50 mg 24 hr tablet 135 tablet 3 Sig: Take 1.5 tablets by mouth once daily. IRA: No Authorizing Provider: DAVID ERWIN MDAdam Gilmor, RN, RN 04/06/2017 4:42 PM Signedescript confirmedAllergies As of Date: 04/06/2017 Noted Allergy ReactionPHENERGAN VC (PROMETHAZINE-PHENYL* 5 1 - Mental Status ChangeCIPROFLOXACIN 11/04/2010 2 - Rash Comments: Not hives.ERYTHROMYCIN 04/07/2005 9 - Itching Comments: throatKEFLEX (CEPHALEXIN) 04/18/2005 9 - Itching Comments: throatNAPROSYN (NAPROXEN) 04/18/2005 5 - Intolerance Comments: didn't workPAXIL (PAROXETINE HCL) 04/10/2005 1 - Mental Status ChangePENICILLINS 03/04/2011 4 - Hives Comments: " Dioxicillin"paper tape [Other] 11/03/2011 5 - Intolerance Comments: removes skinDate Reviewed: 04/02/2017Reviewed by: Socorro Gu LPN - Fully AssessedReason for Visit: Refill Request [94]Order(s):metoprolol succinate ER (TOPROL XL) 50 mg 24 hr tabletTake 1.5 tablets by mouth once daily.Disp: 135 tabletRfl: 3Prescriptions as of 04/06/2017 Sig: METOPROLOL SUCCINATE ER 50 MG* Take 1.5 tablets by mouth onc* LEVOTHYROXINE 125 MCG TABLET Take 1 tablet by mouth once d* ZOLPIDEM 10 MG TABLET Take 0.5 tablets by mouth at * HYDROCODONE 5 MG-ACETAMINOPHE* Take 1 tablet by mouth every * INSULIN LISPRO 100 UNIT/ML ALBERT* Inject 5 Units subcutaneously* RAMIPRIL 5 MG CAPSULE Take 1 capsule by mouth once * MIRTAZAPINE 15 MG TABLET Take 1 tablet by mouth daily * COMPOUNDED PRESCRIPTION NEBULIZER FOR HOME USE. DX: * GUAIFENESIN ER 600 MG TABLET,* Take 2 tablets by mouth twice* ALBUTEROL SULFATE 2.5 MG/3 ML* Use 3 mL via nebulizer every * ALBUTEROL SULFATE HFA 90 MCG/* Inhale 2 Puffs as instructed * METFORMIN 850 MG TABLET Take 1 tablet by mouth 3 blanca* WARFARIN 5 MG TABLET Take 5 mg on Thursday and * FAMOTIDINE 20 MG TABLET Take 1 tablet by mouth twice * BENZONATATE 100 MG CAPSULE Take 1 capsule by mouth three* WARFARIN 5 MG TABLET take 5 mg on Thursday and * CHOLECALCIFEROL (VITAMIN D3) * Take 1 tablet by mouth once d* INSULIN GLARGINE 100 UNIT/ML * Inject 30-40 Units subcutaneo* HYDROXYCHLOROQUINE 200 MG TAB* Take 1.5 tablets by mouth onc* BUPROPION HCL SR 150 MG TABLE* Take 1 tablet by mouth twice * GABAPENTIN 600 MG TABLET Take 1 tablet by mouth three * MULTIVITAMIN ORAL Take by mouth. OTC One A Day* MILNACIPRAN 100 MG TABLET Take 1 tablet by mouth once d* MENTHOL 4 % TOPICAL GEL Apply 1 application to affect* FLUTICASONE 50 MCG/ACTUATION * Use 2 Sprays in each nostril * KETOCONAZOLE 2 % TOPICAL CREAM Apply 1 application to affect* BLOOD SUGAR DIAGNOSTIC STRIPS Use as instructed 3 times anna* NITROGLYCERIN 0.4 MG SUBLINGU* Dissolve 1 tablet under the t* [employer] Incentive spirometer. Deep b* ALBUTEROL SULFATE HFA 90 MCG/* 1 to 2 puffs every 4 hours as* PROTHROMBIN TIME/INR TEST MET* Check Protime weekly. Dx: pul* AMMONIUM LACTATE 12 % TOPICAL* Apply 1 application to affect* COMPOUNDED PRESCRIPTION Hospital bed all electric wit* ALBUTEROL 90 MCG/ACTUATION AE* Inhale 1-2 Puffs as instructe*Problem List As Of Date 04/06/2017 Noted Resolved Type 2 diabetes, controlled, with neuropathy (H* PURE HYPERCHOLESTEROLEM [E78.00] Acquired hypothyroidism [E03.9] INVALID FOR* VENOUS INSUFFICIENCY NOS [I87.2] BENIGN HYPERTENSION [I10] HIRSUTISM [L68.0] MORBID OBESITY [E66.01] ASTHMA UNSPECIFIED [J45.909] CHRONIC DEPRESSIVE PERSON [F34.1] EDEMA [R60.9] More... 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 Other pain disorders related to psychological f*INVALID FOR*11/08/2014 Osteomyelitis (HCC) [M86.9] INVALID FOR*09/29/2016 Thigh pain [M79.659] INVALID FOR* DM w/o complication type II [E11.9] INVALID FOR*11/08/2014 History of pulmonary embolism [Z86.711] INVALID FOR* Pulmonary embolism (HCC) [I26.99] INVALID FOR* More... Migraine headache with aura [G43.109] INVALID FOR* Carotid artery disease [I77.9] INVALID FOR* Family history of colon cancer [Z80.0] INVALID FOR*11/08/2014 Cough [R05] INVALID FOR*11/08/2014 Laryngitis [J04.0] INVALID FOR*11/08/2014 Sinusitis, acute [J01.90] INVALID FOR*11/08/2014 Hyperlipidemia [E78.5] INVALID FOR* Osteoarthrosis, unspecified whether generalized*INVALID FOR*12/26/2013 Diabetic ulcer of left foot associated with typ*INVALID FOR* Weakness of lower extremity [R29.898] INVALID FOR* Falls frequently [R29.6] INVALID FOR*Prescriptions ordered this encounter Disp Refills Start End METOPROLOL SUCCINATE ER 50 MG TABLET* 135 * 3 04/06/2017 Class: [facility] Route: ORAL Sig: Take 1.5 tablets by mouth once daily.Medications Discontinued During This Encounter metoprolol succinate ER (TOPROL XL) * 30 t* 11 02/09/2017 04/06/2017 Route: ORAL Sig: Take 1 tablet by mouth once daily. Patient taking differently: Take 75 mg by mouth once daily. Disc: Reason for discontinue is not on file. Status:Closed by GUI GALLEGO on 04/06/17 Normal [facility] Vital Signs Date Time Vital Sign Value Performing Clinician Zack goncalves 10-10-2024 13:29-0400 Body temperature 96.8 [degF] Travis Patterson APRN.CLINICAL TRIALS MANAGER Work Phone: [facility] 10-10-2024 13:29-0400 Diastolic blood pressure 57 mm[Hg] Travis Patterson APRN.CLINICAL TRIALS MANAGER Work Phone: [facility] 10-10-2024 13:29-0400 Heart rate 66 /min Travis Patterson APRN.CLINICAL TRIALS MANAGER Work Phone: [facility] 10-10-2024 13:29-0400 Respiratory rate 16 /min Travis Patterson APRN.CLINICAL TRIALS MANAGER Work Phone: [facility] 10-10-2024 13:29-0400 SaO2% (BldA) [Mass fraction] 97 % Travis Patterson APRN.CLINICAL TRIALS MANAGER Work Phone: [facility] 10-10-2024 13:29-0400 Systolic blood pressure 120 mm[Hg] Travis Patterson APRN.CLINICAL TRIALS MANAGER Work Phone: [facility] 10-05-2024 16:09-0400 Body temperature 97.81 [degF] Travis Patterson APRN.CLINICAL TRIALS MANAGER Work Phone: [facility] 10-05-2024 16:09-0400 Diastolic blood pressure 71 mm[Hg] Travis Patterson APRN.CLINICAL TRIALS MANAGER Work Phone: [facility] 10-05-2024 16:09-0400 Heart rate 64 /min Travis Patterson APRN.CLINICAL TRIALS MANAGER Work Phone: [facility] 10-05-2024 16:09-0400 Respiratory rate 19 /min Travis Patterson APRN.CLINICAL TRIALS MANAGER Work Phone: [facility] 10-05-2024 16:09-0400 SaO2% (BldA) [Mass fraction] 96 % Travis Lackeybert DIRECTOR GLOBAL INTELLIGENCE.CLINICAL TRIALS MANAGER Work Phone: [facility] 10-05-2024 16:09-0400 Systolic blood pressure 122 mm[Hg] Travis Patterson DIRECTOR GLOBAL INTELLIGENCE.CLINICAL TRIALS MANAGER Work Phone: [facility] 09-30-2024 13:29-0400 Body temperature 97.3 [degF] Travis Patterson DIRECTOR GLOBAL INTELLIGENCE.CLINICAL TRIALS MANAGER Work Phone: [facility] 09-30-2024 13:29-0400 Diastolic blood pressure 64 mm[Hg] Travis Patterson DIRECTOR GLOBAL INTELLIGENCE.CLINICAL TRIALS MANAGER Work Phone: [facility] 09-30-2024 13:29-0400 Heart rate 69 /min Travis Patterson DIRECTOR GLOBAL INTELLIGENCE.CLINICAL TRIALS MANAGER Work Phone: [facility] 09-30-2024 13:29-0400 Respiratory rate 18 /min Travis Patterson DIRECTOR GLOBAL INTELLIGENCE.CLINICAL TRIALS MANAGER Work Phone: [facility] 09-30-2024 13:29-0400 SaO2% (BldA) [Mass fraction] 97 % Travis Patterson DIRECTOR GLOBAL INTELLIGENCE.CLINICAL TRIALS MANAGER Work Phone: [facility] 09-30-2024 13:29-0400 Systolic blood pressure 124 mm[Hg] Travis Patterson DIRECTOR GLOBAL INTELLIGENCE.CLINICAL TRIALS MANAGER Work Phone: [facility] 07-09-2024 23:24-0500 Diastolic blood pressure 66 mm[Hg] BETY Jha MD Work Phone: [facility] [employer] 07-09-2024 23:24-0500 Heart rate 96 /min BETY Jha MD Work Phone: [facility] [employer] 07-09-2024 23:24-0500 Respiratory rate 20 /min BETY Jha MD Work Phone: [facility] [employer] 07-09-2024 23:24-0500 SaO2% (BldA) [Mass fraction] 98 % BETY Jha MD Work Phone: [facility] [employer] 07-09-2024 23:24-0500 Systolic blood pressure 99 mm[Hg] BETY Jha MD Work Phone: [employer] 07-09-2024 23:21-0500 Body height 157.5 cm BETY Jha MD Work Phone: [employer] 07-09-2024 23:21-0500 Body mass index (BMI) [Ratio] 39.14 kg/m2 BETY Jha MD Work Phone: [employer] 07-09-2024 23:21-0500 Body temperature 98.4 [degF] BETY Jha MD Work Phone: [employer] 07-09-2024 23:21-0500 Body weight 97.07 kg BETY Jha MD Work Phone: [employer] 02-10-2024 10:43-0400 Body temperature 97.7 [degF] Isaaccirilo Hancocke DO Work Phone: [employer] 01-27-2024 12:59-0400 Body temperature 97.11 [degF] Isaac Brian DO Work Phone: [employer] 01-27-2024 12:59-0400 Diastolic blood pressure 76 mm[Hg] Isaac Brian DO Work Phone: [employer] 01-27-2024 12:59-0400 Heart rate 72 /min Isaac Brian DO Work Phone: [employer] 01-27-2024 12:59-0400 Respiratory rate 18 /min Isaac Brian DO Work Phone: [employer] 01-27-2024 12:59-0400 Systolic blood pressure 126 mm[Hg] Isaac Brian DO Work Phone: [employer] 01-20-2024 14:26-0400 Body height 157.5 cm Isaac Brian DO Work Phone: [employer] 01-20-2024 14:26-0400 Body mass index (BMI) [Ratio] 38.96 kg/m2 Isaac Brian DO Work Phone: [employer] 01-20-2024 14:26-0400 Body temperature 97.2 [degF] Isaac Chicas DO Work Phone: [facility] [employer] 01-20-2024 14:26-0400 Body weight 96.62 kg Isaac Chicas DO Work Phone: [facility] [employer] 01-20-2024 14:26-0400 Diastolic blood pressure 70 mm[Hg] Isaac Chicas DO Work Phone: [facility] [employer] 01-20-2024 14:26-0400 Heart rate 79 /min Isaac Chicas DO Work Phone: [facility] [employer] 01-20-2024 14:26-0400 Respiratory rate 18 /min Isaac Chicas DO Work Phone: [facility] [employer] 01-20-2024 14:26-0400 Systolic blood pressure 112 mm[Hg] Isaac Chicas DO Work Phone: [facility] [employer] 12-15-2023 22:15-0400 Diastolic blood pressure 57 mm[Hg] Gloriajasvir Bangura DO Work Phone: [facility] [employer] 12-15-2023 22:15-0400 Heart rate 64 /min Gloriajasvir Bangura DO Work Phone: [facility] [employer] 12-15-2023 22:15-0400 Respiratory rate 16 /min Gloriajasvir Bangura DO Work Phone: [facility] [employer] 12-15-2023 22:15-0400 SaO2% (BldA) [Mass fraction] 98 % Gloria Willem DO Work Phone: [facility] [employer] 12-15-2023 22:15-0400 Systolic blood pressure 137 mm[Hg] Gloria Willem DO Work Phone: [employer] 12-15-2023 18:24-0400 Body height 165.1 cm Gloria Willem DO Work Phone: [employer] 12-15-2023 18:24-0400 Body mass index (BMI) [Ratio] 35.45 kg/m2 Gloria Willem DO Work Phone: [facility] [employer] 12-15-2023 18:24-0400 Body temperature 97.3 [degF] Gloria Bangura DO Work Phone: [facility] [employer] 12-15-2023 18:24-0400 Body weight 96.62 kg Gloria Bangura DO Work Phone: [facility] [employer] 07-20-2023 06:46-0500 Diastolic blood pressure 67 mm[Hg] Cuba Anna MD Work Phone: [facility] [employer] 07-20-2023 06:46-0500 Heart rate 63 /min Cuba Anna MD Work Phone: [employer] 07-20-2023 06:46-0500 Respiratory rate 16 /min Cuba Anna MD Work Phone: [employer] 07-20-2023 06:46-0500 SaO2% (BldA) [Mass fraction] 97 % Cuba Anna MD Work Phone: [facility] [employer] 07-20-2023 06:46-0500 Systolic blood pressure 148 mm[Hg] Cuba Anna MD Work Phone: [employer] 07-19-2023 18:50-0500 Body height 157.5 cm Cuba Anna MD Work Phone: [employer] 07-19-2023 18:50-0500 Body mass index (BMI) [Ratio] 43.71 kg/m2 Cuba Anna MD Work Phone: [employer] 07-19-2023 18:50-0500 Body temperature 98.01 [degF] Cuba Anna MD Work Phone: [employer] 07-19-2023 18:50-0500 Body weight 108.41 kg Cuba Anna MD Work Phone: [facility] [employer] 09-06-2022 10:13-0400 Diastolic blood pressure 75 mm[Hg] Linden Fuentes MD Work Phone: [employer] 09-06-2022 10:13-0400 Heart rate 69 /min Linden Fuentes MD Work Phone: [facility] 09-06-2022 10:13-0400 Respiratory rate 15 /min Linden Fuentes MD Work Phone: [facility] 09-06-2022 10:13-0400 SaO2% (BldA) [Mass fraction] 100 % Linden Fuentes MD Work Phone: [facility] 09-06-2022 10:13-0400 Systolic blood pressure 143 mm[Hg] Linden Fuentes MD Work Phone: [facility] 09-06-2022 05:33-0400 Body temperature 98.2 [degF] Linden Fuentes MD Work Phone: [facility] 03-12-2022 19:37-0400 Body temperature 98.71 [degF] BETY Jha MD Work Phone: [facility] 03-12-2022 19:37-0400 Diastolic blood pressure 68 mm[Hg] BETY Jha MD Work Phone: [facility] 03-12-2022 19:37-0400 Heart rate 73 /min BETY Jha MD Work Phone: [facility] 03-12-2022 19:37-0400 Respiratory rate 16 /min BETY Jha MD Work Phone: [facility] 03-12-2022 19:37-0400 SaO2% (BldA) [Mass fraction] 97 % BETY Jha MD Work Phone: [facility] 03-12-2022 19:37-0400 Systolic blood pressure 151 mm[Hg] BETY Jha MD Work Phone: [facility] 03-08-2022 20:15-0400 Body height 165.1 cm BETY Jha MD Work Phone: [facility] 03-08-2022 11:49-0400 Body mass index (BMI) [Ratio] 35.45 kg/m2 BETY Jha MD Work Phone: [facility] 03-08-2022 11:49-0400 Body weight 96.62 kg BETY Jha MD Work Phone: [facility] 09-26-2021 11:23-0400 Body weight 99.34 kg Baudilio Sultana MD Work Phone: [facility] 09-26-2021 11:23-0400 Diastolic blood pressure 72 mm[Hg] Baudilio Sultana MD Work Phone: [facility] 09-26-2021 11:23-0400 Heart rate 68 /min Baudilio Sultana MD Work Phone: [facility] 09-26-2021 11:23-0400 Systolic blood pressure 142 mm[Hg] Baudilio Sultana MD Work Phone: [facility] Encounters Encounter Date Encounter Type Care Provider Facility Start: 11-08-2024 ambulatory STEVEN LIZMELANY Jones ty:[id number] Start: 11-04-2024 End: 11-04-2024 ambulatory GILMER COTTON Facility:[facility] Start: 10-27-2024 ambulatory RAF CASEY Facility:[facility] Start: 10-27-2024 End: 10-27-2024 Subsequent hospital visit by physician Ramos [facility] [place] Work Phone: Radiology Comment on above: Sprain of left ankle , unspecified ligament, initial encounter [S93.402A] Start: 10-27-2024 End: 10-27-2024 Patient encounter procedure Steven Pelaez Work Phone: Podiatry Comment on above: Sprain of left ankle , unspecified ligament, initial encounter (Primary Dx); Ankle instability, left; Chronic pain of left ankle Start: 10-27-2024 End: 10-27-2024 ambulatory RAF Rascon KYMBERLY Facility:[facility] Start: 10-19-2024 End: 10-19-2024 Patient encounter procedure Mendel Sharma PA-C Work Phone: Orthopaedics Comment on above: Primary osteoarthrit is of left knee (Primary Dx) Start: 10-19-2024 End: 10-19-2024 ambulatory RAF Abiodun CASEY Facility:[facility] Start: 10-10-2024 End: 10-10-2024 ambulatory Travis Patterson APRN.CNP Work Phone: [facility] Comment on above: Fall at home, initia l encounter (Primary Dx); Cerebral palsy, unspecified type (HCC); Brachial neuritis or radiculitis; Acute pain of right shoulder; Left knee pain, unspecified chronicity; Diabetic polyneuropathy associated with type 2 diabetes mellitus (HCC); Neuropathy; Type 2 diabetes, controlled, with neuropathy (HCC); Atherosclerosis of [place] coronary artery of [place] heart without angina pectoris; Other pulmonary embolism without acute cor pulmonale, unspecified chronicity (HCC); Debility Start: 10-10-2024 End: 10-10-2024 Telemedicine consultation with patient Travis Patterson SATHYA.CLINICAL TRIALS MANAGER Work Phone: [facility] Start: 10-05-2024 End: 10-05-2024 ambulatory Travis Patterson APRN.CLINICAL TRIALS MANAGER Work Phone: [facility] Comment on above: Fall at home, initia l encounter (Primary Dx); Cerebral palsy, unspecified type (HCC); Brachial neuritis or radiculitis; Acute pain of right shoulder; Left knee pain, unspecified chronicity; Diabetic polyneuropathy associated with type 2 diabetes mellitus (HCC); Type 2 diabetes, controlled, with neuropathy (HCC); Neuropathy; Atherosclerosis of [place] coronary artery of [place] heart without angina pectoris; Other pulmonary embolism without acute cor pulmonale, unspecified chronicity (HCC); Debility Start: 10-05-2024 End: 10-05-2024 Telemedicine consultation with patient Travis Felicitas MCDONNELL.CLINICAL TRIALS MANAGER Work Phone: [facility] Start: 09-30-2024 End: 09-30-2024 ambulatory Travis Patterson APRN.[facility] Work Phone: [facility] Comment on above: Fall at home, initia l encounter (Primary Dx); Cerebral palsy, unspecified type (HCC); Brachial neuritis or radiculitis; Acute pain of right shoulder; Left knee pain, unspecified chronicity; Diabetic polyneuropathy associated with type 2 diabetes mellitus (HCC); Neuropathy; Type 2 diabetes, controlled, with neuropathy (HCC); Atherosclerosis of [place] coronary artery of [place] heart without angina pectoris; Other pulmonary embolism without acute cor pulmonale, unspecified chronicity (HCC); Debility Start: 09-30-2024 End: 09-30-2024 Telemedicine consultation with patient Travis Patterson APRN.JOHN Work Phone: [facility] Start: 09-21-2024 End: 09-21-2024 ambulatory GILMER COTTON Facility:[facility] Start: 09-18-2024 End: 09-28-2024 ambulatory RAF Rascon KYMBERLY Facility:[facility] Start: 09-18-2024 End: 09-18-2024 Emergency department patient visit RAF Abiodun KYMBERLY Facility:[facility] Start: 09-02-2024 End: 09-02-2024 ambulatory GILMER Bojorquez LULA Facility:[facility] Start: 08-05-2024 End: 08-05-2024 ambulatory GILMER Bojorquez BATTIEST Facility:[facility] Start: 07-09-2024 End: 07-09-2024 Subsequent hospital visit by physician [facility] Radiology Comment on above: Arrived Start: 07-09-2024 End: 07-10-2024 Emergency department patient visit Александр Jha MD Work Phone: [facility] ED Comment on above: Acute cough (Primary Dx) Start: 06-30-2024 End: 06-30-2024 ambulatory GILMER COTTON Facility:[facility] Start: 05-02-2024 End: 05-02-2024 ambulatory GILMER COTTON Facility:[facility] Start: 03-04-2024 End: 03-04-2024 ambulatory GILMER Bojorquez BATTIEST Facility:[facility] Start: 02-10-2024 End: 02-10-2024 Office outpatient visit 10 minutes Isaac Chicas DO Work Phone: [facility] WND [facility]STOM[facility] [employer] Comment on above: Pressure ulcer of ri ght foot, stage 3 (HCC) (Primary Dx) Start: 02-10-2024 End: 02-10-2024 ambulatory [facility] Start: 01-29-2024 End: 01-29-2024 ambulatory RAF Rascon KYMBERLY Facility:[facility] Start: 01-27-2024 End: 01-27-2024 Subsequent hospital visit by physician Isaac Chicas DO Work Phone: [facility] [employer] Comment on above: Pressure ulcer of ri ght foot, stage 3 (HCC) (Primary Dx) Start: 01-27-2024 End: 01-27-2024 ambulatory [facility] Start: 01-20-2024 End: 01-20-2024 Office outpatient new 30 minutes Isaac Chicas DO Work Phone: [facility] [employer] Comment on above: Pressure ulcer of ri ght foot, stage 3 (HCC) (Primary Dx) Start: 01-20-2024 End: 01-20-2024 ambulatory [facility] Start: 12-25-2023 End: 12-25-2023 ambulatory [facility] Facility:[facility] Start: 12-15-2023 End: 12-15-2023 Subsequent hospital visit by physician [facility] Port[facility] Radiology Comment on above: Arrived Start: 12-15-2023 End: 12-16-2023 Emergency department patient visit Gloria Bangura DO Work Phone: [facility] ED Comment on above: Diabetic ulcer of le ft foot associated with diabetes mellitus due to underlying condition, unspecified part of foot, unspecified ulcer stage (HCC) (Primary Dx); Left leg cellulitis Start: 11-27-2023 End: 11-27-2023 [facility] Facility:[facility] Start: 07-19-2023 End: 07-19-2023 Subsequent hospital visit by physician [facility] [address] Exam Room [address] [facility] [address] Comment on above: Arrived Start: 07-19-2023 End: 07-19-2023 Emergency department patient visit CUBA ANNA [facility] Start: 07-19-2023 End: 07-20-2023 Emergency department patient visit Cuba Anna MD Work Phone: [facility] ED Comment on above: Frequent falls (Prim liv Dx); Right hip pain; Contusion of right knee, initial encounter; Osteoarthritis, unspecified osteoarthritis type, unspecified site Start: 05-04-2023 Orders Only Chasidy Heredia MA [facility] [place] Start: 09-06-2022 End: 09-07-2022 Emergency department patient visit LINDEN FUENTES [facility] Start: 09-06-2022 End: 09-06-2022 Subsequent hospital visit by physician [facility] Ed Xr [facility] X-Ray Comment on above: Arrived Start: 09-06-2022 End: 09-06-2022 Emergency department patient visit Linden Fuentes MD Work Phone: [facility] Comment on above: Fall, initial encoun ter (Primary Dx) Start: 04-15-2022 Telephone encounter Baudilio Sultana MD Work Phone: [facility] [place] Comment on above: Insurance Authorizat ion Start: 03-08-2022 End: 03-13-2022 Evaluation and management of inpatient J Candida Jha MD Work Phone: [facility] SUR[facility] Comment on above: Diabetic ulcer of ot her part 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, with fat layer exposed (HCC) (Primary Dx); Cellulitis of left lower extremity; PE (pulmonary thromboembolism) (HCC) Start: 03-06-2022 End: 03-06-2022 Patient encounter procedure Steven Pelaez Work Phone: Podiatry Comment on above: Diabetic ulcer of to e 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, with fat layer exposed (HCC) (Primary Dx); Type 2 diabetes, controlled, with neuropathy (HCC) Start: 02-28-2022 Telephone encounter Steven Madison Work Phone: Podiatry Comment on above: Orders Start: 02-27-2022 End: 02-27-2022 Nursing evaluation of patient and report Nurse/Benigno [facility] Work Phone: Podiatry Comment on above: Diabetic ulcer of to e 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, with fat layer exposed (HCC) (Primary Dx) Start: 02-26-2022 Telephone encounter Steven Madison Work Phone: Podiatry Comment on above: Patient Question Start: 02-12-2022 ambulatory Steven xavier Work Phone: Podiatry Comment on above: xray results Start: 02-12-2022 E-mail encounter fro m caregiver Steven Pelaez Work Phone: [facility] Start: 02-10-2022 End: 02-10-2022 Subsequent hospital visit by physician X[facility] [place] Work Phone: Radiology Comment on above: Diabetic ulcer of to e 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, with fat layer exposed (HCC) [E11.621, L97.522] Start: 02-10-2022 End: 02-10-2022 Patient encounter procedure Steven Pelaez Work Phone: Podiatry Comment on above: Type 2 diabetes, con trolled, with neuropathy (HCC) (Primary Dx); Diabetic ulcer of toe 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, with fat layer exposed (HCC) Start: 12-18-2021 ambulatory Baudilio Sultana MD Work Phone: Internal Medicine [facility] Start: 11-26-2021 Telephone encounter Baudilio Sultana MD Work Phone: Internal Medicine [place] Comment on above: Anticoagulation Start: 11-19-2021 Telephone encounter Baudilio Sultana MD Work Phone: [facility] [place] Comment on above: Anticoagulation Start: 11-05-2021 Telephone encounter Baudilio Sultana MD Work Phone: Family [facility] [place] Comment on above: Anticoagulation Start: 10-30-2021 Telephone encounter Baudilio Sultana MD Work Phone: Family [facility] [place] Comment on above: Anticoagulation Start: 10-15-2021 Telephone encounter Baudilio Sultana MD Work Phone: Family [facility] Comment on above: Anticoagulation Start: 10-14-2021 ambulatory Baudilio Sultana MD Work Phone: [facility] Comment on above: Question regarding C arotid Dup Dustin OP Start: 10-14-2021 End: 10-14-2021 Subsequent hospital visit by physician Bone Density [facility] Work Phone: Radiology Comment on above: Disorder of bone and cartilage [M89.9, M94.9] Start: 10-08-2021 Telephone encounter Baudilio Sultana MD Work Phone: [facility] Comment on above: Anticoagulation Refill Request Start: 10-01-2021 Telephone encounter Baudilio Sultana [facility] Comment on above: Patient Question; Or ders Anticoagulation Start: 09-27-2021 Telephone encounter Baudilio Sultana MD Work Phone: [facility] Comment on above: Results Start: 09-26-2021 End: 09-26-2021 Patient encounter procedure Baudilio Sultana MD Work Phone: [facility] Comment on above: Cerebral palsy, unsp ecified type (HCC) (Primary Dx); Carotid artery disease, unspecified laterality, unspecified type (HCC); Type 2 diabetes, controlled, with neuropathy (HCC); Diabetic polyneuropathy associated with type 2 diabetes mellitus (HCC); Other pulmonary embolism without acute cor pulmonale, unspecified chronicity (HCC); Vitamin B12 deficiency; Acquired hypothyroidism; Depression, recurrent (HCC); Disorder of bone and cartilage; Brachial neuritis or radiculitis Start: 09-25-2021 Telephone encounter Baudilio Sultana MD Work Phone: [facility] Comment on above: Anticoagulation Start: 09-18-2021 Telephone encounter Baudilio Sultana MD Work Phone: [facility] Comment on above: Anticoagulation Start: 09-16-2021 Chart abstracting Baudilio Pretty MD Work Phone: [facility] Start: 09-16-2021 End: 09-16-2021 Patient encounter procedure [facility] Start: 2021 Telephone encounter Baudilio Sultana MD Work Phone: [facility] Comment on above: Anticoagulation Start: 01-29-2021 End: 01-29-2021 Subsequent hospital visit by physician Ramos [facility] Work Phone: Radiology Comment on above: Chronic right should er pain [M25.511, G89.29] Start: 04-12-2018 Ambulatory DAVID ERWIN Facility :[facility] Start: 08-12-2017 End: 08-12-2017 Ambulatory [facility] Procedures Date Procedure Procedure Detail Performing Clinician Start: 10-19-2024 Arthrocentesis aspir &/inj major jt/bursa w/o us Mendel Sharma PA-C Work Phone: Start: 07-09-2024 Radiologic exam ches t single view J Candida Jha MD Work Phone: Start: 01-27-2024 Debridement subcutan eous tissue 20 sq cm/< Isaac J Brian DO Work Phone: Start: 01-20-2024 Debridement subcutan eous tissue 20 sq cm/< Isaac J Brian DO Work Phone: Start: 12-15-2023 Radex foot complete minimum 3 views Gloria Willem DO Work Phone: Start: 12-15-2023 End: 12-15-2023 Bacteria identified in Blood by Culture Gloria Willem DO Work Phone: Start: 12-15-2023 Basic metabolic pane l calcium total Gloria Willem DO Work Phone: Start: 12-15-2023 C-reactive protein Brig id Willem DO Work Phone: Start: 07-19-2023 End: 07-19-2023 Radiologic examination femur minimum 2 views Cuba Anna MD Work Phone: Start: 07-19-2023 Ct head/brain w/o co ntrast material Cuba Anna MD Work Phone: Start: 07-19-2023 Ct pelvis w/o contra st material Cuba Anna MD Work Phone: Start: 07-19-2023 Ct cervical spine w/ o contrast material Cuba Anna MD Work Phone: Start: 09-06-2022 Ct head/brain w/o co ntrast material Ravi Jim MD Work Phone: Start: 09-06-2022 Drug tst prsmv instr mnt chem analyzers pr date Linden Fuentes MD Work Phone: Start: 09-06-2022 Ecg routine ecg w/le ast 12 lds trcg only w/o i&r Del Ragland MD Work Phone: Start: 09-06-2022 End: 09-06-2022 Radex shoulder complete minimum 2 views Mable Casey MD Work Phone: Start: 09-06-2022 Ct cervical spine w/ o contrast material Linden Fuentes MD Work Phone: Start: 09-06-2022 Ct head/brain w/o co ntrast material Linden Fuentes MD Work Phone: Start: 09-06-2022 Radiologic exam ches t single view Linden Fuentes MD Work Phone: Start: 09-06-2022 ABO and Rh group [Ty pe] in Blood by Confirmatory method Linden Fuentes MD Work Phone: Start: 09-06-2022 Basic metabolic pane l calcium total Linden Fuentes MD Work Phone: Start: 09-06-2022 Drug test def 1-7 classes Linden Fuentes MD Work Phone: Start: 03-12-2022 Gluc bld gluc mntr d ev cleared fda spec home use [employer] Work Phone: Start: 03-12-2022 Gluc bld gluc mntr d ev cleared fda spec home use Brand[employer] DO Work Phone: Start: 03-12-2022 Iadna-dna/rna gi pth gn multiplex probe tq 12-25 Rose Goodman MD Work Phone: Start: 03-12-2022 Prothrombin time Eric Edge MD Work Phone: Start: 03-12-2022 End: 03-12-2022 Gluc bld gluc mntr dev cleared fda spec home use J Candida Jha MD Work Phone: Start: 03-11-2022 Gluc bld gluc mntr d ev cleared fda spec home use Kushal Gaines DO Work Phone: Start: 03-11-2022 Gluc bld gluc mntr d ev cleared fda spec home use Kushal Gaines DO Work Phone: Start: 03-11-2022 POCT COVID-19, ANTIGEN Katya Lezama DIRECTOR [employer] - CLINICAL TRIALS MANAGER Work Phone: Start: 03-11-2022 Gluc bld gluc mntr d ev cleared fda spec home use Kushal Gaines DO Work Phone: Start: 03-11-2022 Gluc bld gluc mntr d ev cleared fda spec home use Kushal Gaines DO Work Phone: Start: 03-11-2022 Basic metabolic pane l calcium total Demetris Stone MD Work Phone: Start: 03-11-2022 PROTIME/INR & PTT Eric Edge MD Work Phone: Start: 03-10-2022 Gluc bld gluc mntr d ev cleared fda spec home use Kushal Gaines DO Work Phone: Start: 03-10-2022 Gluc bld gluc mntr d ev cleared fda spec home use Kushal Gaines DO Work Phone: Start: 03-10-2022 Gluc bld gluc mntr d ev cleared fda spec home use Kushal Gaines DO Work Phone: Start: 03-10-2022 Gluc bld gluc mntr d ev cleared fda spec home use Kushal Gaines DO Work Phone: Start: 03-10-2022 PROTIME/INR & PTT Eric Edge MD Work Phone: Start: 03-09-2022 Gluc bld gluc mntr d ev cleared fda spec home use Kushal Gaines DO Work Phone: Start: 03-09-2022 Gluc bld gluc mntr d ev cleared fda spec home use Kushal Gaines DO Work Phone: Start: 03-09-2022 Gluc bld gluc mntr d ev cleared fda spec home use Kushal Gaines [employer] Guide Work Phone: Start: 03-09-2022 Gluc bld gluc mntr d ev cleared fda spec home use Александр Jha MD Work Phone: Start: 03-09-2022 Thyrotropin [Units/v olume] in Serum or Plasma [facility] 1 Start: 03-09-2022 BASIC METABOLIC PANE L W/ REFLEX TO MG FOR LOW K Katya Lezama DIRECTOR [employer] - CLINICAL TRIALS MANAGER Work Phone: Start: 03-09-2022 Drug screen quantita tive vancomycin Kushal Gaines DO Work Phone: Start: 03-09-2022 Hemoglobin glycosylated a1c Katya Lezama DIRECTOR [employer] - CLINICAL TRIALS MANAGER Work Phone: Start: 03-09-2022 PROTIME/INR & PTT Merritt Lezama DIRECTOR [employer] - CLINICAL TRIALS MANAGER Work Phone: Start: 03-08-2022 Gluc bld gluc mntr d ev cleared fda spec home use Александр Jha MD Work Phone: Start: 03-08-2022 End: 03-08-2022 Gluc bld gluc mntr dev cleared fda spec home use Kushal Gaines DO Work Phone: Start: 03-08-2022 Radex ankle complete minimum 3 views Katya Lezama DIRECTOR [employer] - CLINICAL TRIALS MANAGER Work Phone: Start: 03-08-2022 BEDSIDE SPIROMETRY Joy Lezama DIRECTOR [employer] - CLINICAL TRIALS MANAGER Work Phone: Start: 03-08-2022 Culture bacterial quanttative colony count urine Александр Jha MD Work Phone: Start: 03-08-2022 Urnls dip stick/tabl et rgnt auto w/o microscopy Александр Jha MD Work Phone: Start: 03-08-2022 Basic metabolic pane l calcium total Александр Jha MD Work Phone: Start: 03-08-2022 Culture bacterial bl ood aerobic w/id isolates Александр Jha MD Work Phone: Start: 03-08-2022 CULTURE, BLOOD 1 Александр Jha MD Work Phone: Start: 03-08-2022 LACTATE, SEPSIS Александр Jha MD Work Phone: Start: 11-05-2021 PROTHROMBIN TIME/PT [facility] Start: 10-29-2021 INR in Platelet poor plasma by Coagulation assay [facility] Start: 10-15-2021 PROTHROMBIN TIME/PT [facility] Provider Start: 10-14-2021 Dxa bone density jesus dy 1/> sites axial skel Baudilio Sultana MD Work Phone: Start: 10-08-2021 PROTHROMBIN TIME/PT [facility] Provider Start: 10-01-2021 PROTHROMBIN TIME/PT [facility] Start: 09-25-2021 PROTHROMBIN TIME/PT [facility] Provider Start: 09-16-2021 Lipid panel [facility] Provid er Start: 09-16-2021 MICROALBUMIN/CREATIN INE UR W RATIO (EXTERNAL) [facility] Start: 2021 PROTHROMBIN TIME/PT [facility] Start: 01-29-2021 Radex shoulder compl ete minimum 2 views Baudilio Sultana MD Work Phone: Start: 03-29-2018 Mammography Baudilio Pretty MD Work Phone: Start: 01-04-2018 Colonoscopy Baudilio Pretty MD Work Phone: Plan of Treatment Date Care Activity Detail Author Start: 09-25-2025 Creatinine measurement Serum Creatin ine [facility] Start: 02-20-2025 Influenza vaccination Influenz a Vaccine (Season Ended) [facility] Start: 12-14-2024 Complete blood count Hemoglobin/Jackson tocrit [facility] Start: 12-14-2024 Creatinine measurement Serum Creatin ine [facility] Start: 12-14-2024 Diabetes: Estimated Glomerular Filtration Rate for Kidney Health Diabetes: Estimated Glomerular Filtration Rate for Kidney Health [facility] Start: 12-07-2024 End: 12-07-2024 Patient encounter procedure 12/07/2024 3:40 PM EDT Office Visit Endocrinology [address] [address] Ravi Michael MD [address] [place] [address] Diabetes Endocrinology Comment on above: Diabetes Start: 11-08-2024 End: 11-08-2024 Patient encounter procedure 11/08/2024 11:00 AM EDT Appointment MRI Scan [address] [place] [address] Chronic pain of left ankle [M25.572, G89.29 MRI Scan Comment on above: Chronic pain of left ankle [M25.572, G89.29 Start: 10-27-2024 End: 10-27-2024 Patient encounter procedure 10/27/2024 11:15 AM EDT Office Visit Podiatry [address] [place], [place] [id number] Steven Peleaz [address] [place], [place] [id number] left foot Podiatry Comment on above: left foot Start: 10-19-2024 End: 10-19-2024 Patient encounter procedure Orthopaedics Comment on above: Cerebral palsy with knee injury unable to stand pivot. Exam negative for laxity and patient going to prison for rehab Cerebral palsy with left knee injury unable to stand pivot Start: 06-22-2024 Advance Directive Discussion Advance Directive Discussion [facility] Start: 06-22-2024 Medicare Advantage Annual Wellness Visit Medicare Advantage Annual Wellness Visit [facility] Start: 02-21-2024 Covid-19 Vaccine ( season) Covid-19 Vaccine ( season) [facility] Start: 02-21-2024 Influenza vaccination S [facility] Start: 02-03-2024 End: 02-03-2024 Patient encounter procedure 02/03/2024 10:00 AM EDT Appointment [facility] [address] [place] [address] Isaac Chicas, DO [address], [place] [id number] [facility] Start: 01-27-2024 End: 01-27-2024 Patient encounter procedure 01/27/2024 1:15 PM EDT Appointment [facility] [address] [place] [address] Isaac Chicas DO [address] [place] [address] [facility] Start: 06-22-2023 Advance Directive Discussion Advance Directive Discussion [facility] Start: 06-22-2023 Medicare [facility] Annual Wellness Visit Medicare Advantage Annual Wellness Visit [facility] Start: 03-09-2023 Hemoglobin A1c measurement Diabetes: Hemoglobin A1C [facility] Start: 03-09-2023 Thyroid stimulating hormone measurement TSH Level [facility] Start: 02-20-2023 Covid-19 Vaccine () Covid-19 Vaccine () [facility] Start: 02-20-2023 COVID-19 Vaccine () COVID-19 Vaccine () [facility] Start: 02-20-2023 Influenza vaccination Influenza Vacc ine (#1) [facility] Start: 01-04-2023 Colonoscopy COLONOSCOPY [facility] Start: 01-04-2023 COLORECTAL CANCER SCREENING COLORECTAL CANCER SCREENING [facility] Start: 01-04-2023 Screening for malign ant neoplasm of colon [facility] Start: 09-26-2022 ANNUAL PCP TEAM PLANT SPRAYER DANYELLE DISEASE VISIT ANNUAL PCP TEAM CHRONIC DISEASE VISIT [facility] Start: 09-26-2022 Serum Creatinine Serum Creatinine Cl [facility] Start: 09-16-2022 Hepatitis B screening URINE ALBUMIN:CREATININE RATIO [facility] Start: 09-06-2022 Hemoglobin A1c measurement HbA1C [facility] Start: 09-06-2022 Hemoglobin A1c/Hemoglobin.total in Blood HBA1C [facility] Start: 06-24-2022 ANNUAL PCP TEAM PLANT SPRAYER DANYELLE DISEASE VISIT ANNUAL PCP TEAM CHRONIC DISEASE VISIT [facility] Start: 06-22-2022 ADVANCE DIRECTIVE DISCUSSION ADVANCE DIRECTIVE DISCUSSION [facility] Start: 04-18-2022 BP CONTROLLED (<130/80) BP CONTROLLE D (<130/80) [facility] Start: 04-12-2022 COVID-19 Vaccine (4 - Booster) COVID-19 Vaccine (4 - Booster) [facility] Start: 03-13-2022 End: 03-11-2023 Protime-INR Protime-INR Lab Routine PE (pulmonary thromboembolism) (HCC) Expected: 03/13/2022, Expires: 03/11/2023 [facility] Work Phone: Comment on above: Expected: 03/13/2022 , Expires: 03/11/2023 Start: 02-20-2022 Influenza vaccination C [facility] Start: 02-12-2022 Hemoglobin A1c/Hemoglobin.total in Blood HBA1C [facility] Start: 11-09-2021 3 comp foot exam completed DIABETIC FOOT EXAM [facility] Start: 11-09-2021 Diabetic foot examination Diabetic Foot Exam [facility] Start: 11-08-2021 End: 01-08-2022 Thyrotropin [Units/volume] in Serum or Plasma TSH BLD Lab Routine Acquired hypothyroidism Expected: 11/08/2021, Expires: 01/08/2022 [facility] Work Phone: Comment on above: Expected: 11/08/2021 , Expires: 01/08/2022 Start: 09-26-2021 End: 11-26-2021 Comprehensive metabolic 2000 panel - Serum or Plasma [facility] Work Phone: Comment on above: Expected: 09/26/2021 , Expires: 11/26/2021 Start: 09-26-2021 End: 11-26-2021 Thyrotropin [Units/volume] in Serum or Plasma [facility] Work Phone: Comment on above: Expected: 09/26/2021 , Expires: 11/26/2021 Start: 09-26-2021 End: 11-26-2021 VITAMIN B12 BLOOD [facility] Work Phone: Comment on above: Expected: 09/26/2021 , Expires: 11/26/2021 Start: 09-11-2021 Glaucoma screening Dilated Retinal E xam [facility] Start: 09-11-2021 Hepatitis C antibody , confirmatory test DILATED RETINAL EXAM [facility] Start: 08-29-2021 FECAL OCCULT BLOOD FECAL OCCULT BLOO D [facility] Start: 08-29-2021 Screening for malign ant neoplasm of colon Fecal Occult Blood [facility] Start: 08-01-2021 Hemoglobin A1c/Hemoglobin.total in Blood HBA1C [facility] Start: 07-11-2021 Hepatitis B screening URINE ALBUMIN:CREATININE RATIO [facility] Start: 06-22-2021 ADVANCE DIRECTIVE DISCUSSION ADVANCE DIRECTIVE DISCUSSION [facility] Start: 06-16-2021 COVID-19 VACCINE (5 - Booster) COVID-19 VACCINE (5 - Booster) [facility] Start: 03-21-2021 Hepatitis B surface antibody level LDL CHOLESTEROL [facility] Start: 03-29-2019 Mammography [facility] Start: 03-29-2019 Screening for malign ant neoplasm of breast Mammogram Screening [facility] Start: 12-26-2018 ADVANCE DIRECTIVE DISCUSSION ADVANCE DIRECTIVE DISCUSSION [facility] Start: 03-29-2017 DTaP/Tdap/Td Vaccine s (2 - Td or Tdap) DTaP/Tdap/Td Vaccines (2 - Td or Tdap) [facility] Start: 03-29-2017 Urine microalbumin profile [facility] Start: 09-06-2016 Pneumococcal Vaccine : 65+ Years (1 - PCV) Pneumococcal Vaccine: 65+ Years (1 - PCV) [facility] Start: 2016 BONE DENSITY BONE DENSITY [facility] Start: 05-26-2016 SHINGRIX VACCINE (2 of 3) SHINGRIX VACCINE (2 of 3) [facility] Start: 05-26-2016 Zoster Vaccines (2 o f 3) Zoster Vaccines (2 of 3) [facility] Start: 2011 Hepatitis B Vaccine (1 of 3 - Risk 3-dose series) Hepatitis B Vaccine (1 of 3 - Risk 3-dose series) [facility] Start: 2011 Hepatitis B Vaccines (1 of 3 - Risk 3-dose series) Hepatitis B Vaccines (1 of 3 - Risk 3-dose series) [facility] Start: 2011 RSV Immunization age d 60 or older (1 - 1-dose 60+ series) RSV Immunization aged 60 or older (1 - 1-dose 60+ series) [facility] Start: 2011 RSV Immunization for Adults (1 - Risk 60-74 years 1-dose series) RSV Immunization for Adults (1 - Risk 60-74 years 1-dose series) [facility] Start: 2011 RSV Vaccine (1 - 1-d ose 60+ series) RSV Vaccine (1 - 1-dose 60+ series) [facility] Start: 2011 RSV Vaccine (1 - Ris k 60-74 years 1-dose series) RSV Vaccine (1 - Risk 60-74 years 1-dose series) [facility] Start: 09-06-2001 Zoster Vaccines (1 o f 2) Zoster Vaccines (1 of 2) [facility] Start: 1996 COLOGUARD (FIT-DNA) COLOGUARD (FIT-D NA) [facility] Start: [address] COLONOGRAPHY [facility] Start: 1996 Screening for malign ant neoplasm of colon [facility] Start: 1996 SIGMOIDOSCOPY SIGMOIDOSCOPY [facility] Start: 09-07-1991 Screening for malign ant neoplasm of breast Mammogram [facility] Start: 1991 Screening for malign ant neoplasm of breast Mammogram [facility] Start: 09-06-1970 DTaP/Tdap/Td Vaccine s (1 - Tdap) DTaP/Tdap/Td Vaccines (1 - Tdap) [facility] Start: 1970 DTaP/Tdap/Td vaccine (1 - Tdap) DTaP/Tdap/Td vaccine (1 - Tdap) [facility] Start: 1970 Hepatitis A Vaccines (1 of 2 - Risk 2-dose series) Hepatitis A Vaccines (1 of 2 - Risk 2-dose series) [facility] Start: 09-06-1969 Hepatitis C screening Hepatitis C Sc [facility] Start: 1969 Anxiety Screening Anxiety Screening [facility] Start: 1969 BP CONTROLLED (<130/80) BP CONTROLLE D (<130/80) [facility] Start: 1969 Diabetes: Urine Albumin-Creatinine Ratio for Kidney Health Diabetes: Urine Albumin-Creatinine Ratio for Kidney Health [facility] Start: 1969 Hepatitis C screening Hepatitis C Sc [facility] Start: 1963 Depression Monitoring Depression Mon itoring [facility] Start: 1963 Depression Screening Depression Scre ening [facility] Start: 1961 Diabetic foot examination Diabetes: Foot Exam [facility] Start: 1961 Glaucoma screening Diabetes: R etinopathy Screening [facility]: 1961 Preventive dental service Diabetes: Dental Exam [facility] Start: 03-09-1952 COVID-19 Vaccine (#1) COVID-19 Vacci ne (#1) [facility] Start: 1951 Hepatitis B Vaccines (1 of 3 - 3-dose series) Hepatitis B Vaccines (1 of 3 - 3-dose series) [facility] Start: 1951 Screening for malign ant neoplasm of colon [facility] Start: 1951 Screening for osteoporosis Bone Density Scan [facility] Start: 1951 Lipid panel Lipid Panel [facility] Start: 1951 Medicare Advantage Annual Wellness Visit (AWV) Medicare Advantage Annual Wellness Visit (AWV) [facility] Start: 1951 Screening for malign ant neoplasm of colon [facility] Start: 1951 Screening for osteoporosis Bone Density Scan [facility] Bacteria identified in Blood by Culture [facility] [employer] Work Phone: End: 03-13-2022 Basic metabolic 2000 panel - Serum or Plasma Basic Metabolic Panel Lab Routine Daily for 3 Days starting 03/11/2022 until 03/13/2022, 1 completed [employer] Work Phone: Comment on above: Daily for 3 Days sta rting 03/11/2022 until 03/13/2022, 1 completed End: 03-13-2022 CBC W Auto Differential panel - Blood CBC with Auto Differential Lab Routine Daily for 3 Days starting 03/11/2022 until 03/13/2022, 1 completed [employer] Work Phone: Comment on above: Daily for 3 Days sta rting 03/11/2022 until 03/13/2022, 1 completed Culture, Blood 1 Culture, Blood 1 Microbiology STAT 03/08/2022 1:04 PM EDT [employer] Work Phone: Culture, Blood 2 Culture, Blood 2 Microbiology STAT 03/08/2022 1:04 PM EDT [employer] Work Phone: End: 03-08-2022 Culture, Urine Culture, Urine Microbiology Add-On One Time for 1 Occurrences starting 03/08/2022 until 03/08/2022 [employer] Work Phone: Comment on above: One Time for 1 Occur rences starting 03/08/2022 until 03/08/2022 Dressing Order: Collagen Ag, Mesalt pad; Three times per week; 4x4 gauze, ABDs; Kerlex, Paper tape Dressing Order: Collagen Ag, Mesalt pad; Three times per week; 4x4 gauze, ABDs; Kerlex, Paper tape Wound Ostomy Routine Ordered: 01/20/2024 [employer] Work Phone: Comment on above: Ordered: 01/20/2024 Dressing Order: Collagen, Mesalt pad; Three times per week; ABDs; Kerlex, Paper tape Dressing Order: Collagen, Mesalt pad; Three times per week; ABDs; Kerlex, Paper tape Wound Ostomy Routine Ordered: 01/27/2024 [employer] Work Phone: Comment on above: Ordered: 01/27/2024 End: 10-26-2022 Dxa bone density study 1/> sites axial skel DXA-AXIAL SKELETON Radiology Routine Disorder of bone and cartilage 1 Occurrences starting 09/26/2021 until 10/26/2022 [facility] Work Phone: Comment on above: 1 Occurrences starti ng 09/26/2021 until 10/26/2022 ECG 12 lead ECG 12 lead CV E CG STAT 09/06/2022 3:01 AM EDT [employer] Work Phone: Glucose [Mass/volume ] in Serum or Plasma [facility] Work Phone: Comment on above: 4X Daily (AC & HS) u ntil discontinued starting 03/08/2022 As Needed until disc ontinued starting 03/08/2022 End: 03-08-2022 Initiate Sepsis Narrator Initiate Sepsis Narrator Respiratory Care STAT Once for 1 Occurrences starting 03/08/2022 until 03/08/2022 [facility] Work Phone: Comment on above: Once for 1 Occurrenc es starting 03/08/2022 until 03/08/2022 End: 11-26-2025 MR Ankle - left WO contrast MRI ANKLE WO IVCON LEFT Radiology Routine Chronic pain of left ankle 1 Occurrences starting 10/27/2024 until 11/26/2025 [facility] Comment on above: 1 Occurrences starti ng 10/27/2024 until 11/26/2025 Oxygen therapy [Mini mum Data Set] Initiate Oxygen Therapy Protocol Respiratory Care Routine Daily until discontinued starting 03/08/2022 [employer] Work Phone: Comment on above: Daily until disconti nued starting 03/08/2022 Oxygen therapy [Mini mum Data Set] Initiate Oxygen Therapy Protocol Respiratory Care Routine As Needed until discontinued starting 03/08/2022 [facility] Work Phone: Comment on above: As Needed until disc ontinued starting 03/08/2022 End: 03-19-2022 PROTIME/INR & PTT PROTIME/INR & PTT Lab Routine Daily for 10 Days starting 03/10/2022 until 03/19/2022, 2 completed [employer] Work Phone: Comment on above: Daily for [address] arting 03/10/2022 until 03/19/2022, 2 completed End: 01-17-2023 Screening mammography bi 2-view breast inc cad FUAD SCREENING Radiology Routine Encounter for screening mammogram for breast cancer 1 Occurrences starting 12/18/2021 until 01/17/2023 [facility] Work Phone: Comment on above: 1 Occurrences starti ng 12/18/2021 until 01/17/2023 End: 09-26-2022 US CAROTID ARTERIES [facility] US CAROTID ARTERIES [facility] Vascular Lab Routine Carotid artery disease, unspecified laterality, unspecified type (HCC) 1 Occurrences starting 09/26/2021 until 09/26/2022 [facility] Work Phone: Comment on above: 1 Occurrences starti ng 09/26/2021 until 09/26/2022 End: 03-08-2022 Wound ostomy eval and treat Wound ostomy eval and treat Wound Ostomy Routine One Time for 1 Occurrences starting 03/08/2022 until 03/08/2022 [employer] Work Phone: Comment on above: One Time for 1 Occur rences starting 03/08/2022 until 03/08/2022 End: 11-26-2025 XR Ankle - left AP and Lateral and oblique XR ANKLE GENERAL 3V AP/LAT/OBL LEFT Radiology Routine Sprain of left ankle, unspecified ligament, initial encounter Ankle instability, left 1 Occurrences starting 10/27/2024 until 11/26/2025 [facility] Work Phone: Comment on above: 1 Occurrences starti ng 10/27/2024 until 11/26/2025 XR Ankle - left AP a nd Lateral and oblique XR ANKLE GENERAL 3V AP/LAT/OBL LEFT Radiology Routine Sprain of left ankle, unspecified ligament, initial encounter Ankle instability, left 10/27/2024 12:04 PM EDT [facility] End: 03-12-2023 XR FOOT GENERAL 3V AP/LAT/OBL LEFT XR FOOT GENERAL 3V AP/LAT/OBL LEFT Radiology Routine Diabetic ulcer of toe 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, with fat layer exposed (HCC) 1 Occurrences starting 02/10/2022 until 03/12/2023 [facility] Work Phone: Comment on above: 1 Occurrences starti ng 02/10/2022 until 03/12/2023 End: 02-10-2022 XR FOOT GENERAL 3V AP/LAT/OBL LEFT [facility] Work Phone: Comment on above: 1 Occurrences starti ng 02/10/2022 until 02/10/2022 End: 11-26-2025 XR Tibia and Fibula - left AP and Lateral XR TIBIA FIBULA 2V AP/LAT LEFT Radiology Routine Sprain of left ankle, unspecified ligament, initial encounter Ankle instability, left 1 Occurrences starting 10/27/2024 until 11/26/2025 [facility] Comment on above: 1 Occurrences starti ng 10/27/2024 until 11/26/2025 XR Tibia and Fibula - left AP and Lateral XR TIBIA FIBULA 2V AP/LAT LEFT Radiology Routine Sprain of left ankle, unspecified ligament, initial encounter Ankle instability, left 10/27/2024 12:04 PM EDT [facility] c [facility] Immunizations Immunization Date Immunization Notes Care Provider Fide pendleton 03-14-2022 influenza virus vacc ine, unspecified formulation [facility] 1 [facility] 12-11-2021 COVID-19, PFIZER Bivalent BOOSTER, (age 12y+), IM, 30 mcg/0.3 mL dose BETY Jha MD Work Phone: [facility] Work Phone: 04-21-2021 COVID-19 vaccine, fu ll dose (MODERNA) Baudilio Sultana MD Work Phone: [facility] 02-21-2021 influenza, high-dose , quadrivalent vaccine (FLUZONE HIGH DOSE QUADRIVALENT) Baudilio Sultana MD Work Phone: [facility] 02-21-2021 influenza virus vacc ine, unspecified formulation Chasidy Heredia MA [facility] 09-25-2020 COVID-19 vaccine, fu ll dose (MODERNA) Baudilio Sultana MD Work Phone: [facility] 09-25-2020 COVID-19, US Vaccine , Vaccine Unspecified BETY Jha MD Work Phone: [facility] Work Phone: 09-25-2020 SARS-CoV-2, Unspecified [facility] 1 [facility] 08-28-2020 COVID-19 vaccine, fu ll dose (MODERNA) Baudilio Sultana MD Work Phone: [facility] Work Phone: 08-25-2020 COVID-19 vaccine, fu ll dose (MODERNA) Baudilio Sultana MD Work Phone: [facility] 08-23-2020 COVID-19, US Vaccine , Vaccine Unspecified BETY Jha MD Work Phone: [facility] Work Phone: 08-23-2020 SARS-CoV-2, Unspecified [facility] 1 [facility] 03-07-2020 influenza, high-dose , quadrivalent vaccine (FLUZONE HIGH DOSE QUADRIVALENT) Baudilio Sultana MD Work Phone: [facility] 05-04-2019 influenza, high dose seasonal, preservative-free Baudilio Sultana MD Work Phone: [facility] 05-04-2019 pneumococcal polysaccharide vaccine, 23 valent Baudilio Sultana MD Work Phone: [facility] 04-06-2018 influenza, high dose seasonal, preservative-free Baudilio Sultana MD Work Phone: [facility] 03-23-2017 Influenza virus vaccine [facility] Work Phone: 03-31-2016 zoster vaccine, live Baudilio Sultana MD Work Phone: [facility] 03-25-2016 influenza, injectabl e, quadrivalent, contains preservative Baudilio Sultana MD Work Phone: [facility] 03-02-2015 influenza, seasonal, injectable Baudilio Sultana MD Work Phone: [facility] 01-25-2015 pneumococcal conjuga te vaccine, 13 valent Baudilio Sultana MD Work Phone: [facility] 03-23-2014 influenza virus vacc ine, whole virus Baudilio Sultana MD Work Phone: [facility] 01-02-2014 Pneumococcal Vaccine [facility] Work Phone: 12-28-2013 pneumococcal polysaccharide vaccine, 23 valent Baudilio Sultana MD Work Phone: [facility] 03-29-2011 influenza virus vacc ine, unspecified formulation Baudilio Sultana MD Work Phone: [facility] Work Phone: 04-15-2010 influenza virus vacc ine, unspecified formulation Baudilio Sultana MD Work Phone: [facility] Work Phone: 04-19-2009 novel influenza-H1N1 -09, all formulations Baudilio Sultana MD Work Phone: [facility] Work Phone: 04-12-2009 influenza virus vacc ine, unspecified formulation Baudilio Sultana MD Work Phone: [facility] Work Phone: 04-05-2008 influenza virus vacc ine, unspecified formulation Baudilio Sultana MD Work Phone: [facility] 04-19-2007 influenza virus vacc ine, unspecified formulation Baudilio Sultana MD Work Phone: [facility] Work Phone: 03-29-2007 tetanus toxoid, redu alfredito diphtheria toxoid, and acellular pertussis vaccine, adsorbed Baudilio Sultana MD Work Phone: [facility] Work Phone: 04-29-2006 influenza virus vacc ine, unspecified formulation Baudilio Sultana MD Work Phone: [facility] Work Phone: 04-03-2003 pneumococcal polysaccharide vaccine, 23 valent Baudilio Sultana MD Work Phone: [facility] Work Phone: 04-04-1998 pneumococcal polysaccharide vaccine, 23 valent Baudilio Sultana MD Work Phone: [facility] Payers Date Payer Category Payer Medicare HMO [employer]ILVER[employer]RE [id number] 2023 Medicaid HMO [employer] Wolff EDICAID ONLY Member Subscriber Plan / Payer (Effective 2023-Present) Name: Randolph Hunter Relation to Subscriber: Self Name: Randolph Hunter Payer ID: [id number] (NAIC) Group ID: [id number] Type: Medicaid HMO Address: [place] [id number] 2022 Medicare [id number] 2022 Medicare (Managed Care) [facility] DUAL COMPLETE HMO POS SNP [id number] 2022 Medicare [id number] 2021 Medicaid [id number] 2021 Medicaid [facility] MEDICAID MYC ARE [facility] MEDICAID [id number] 2021-Present [phone] [address] [place] [address] Medicaid [id number] 2021 Medicaid [id number] 2021 Medicare [id number] 2021 Medicare [id number] 2021 Medicaid MEDICAID [facility] MEDICAID [id number] 2021-Present [phone] [address] [place] [address] Medicaid [id number] 2020 Private Health Insurance 2003 Unknown [facility] [id number] [facility] [id number] 1990 Medicare [id number] 1950 Unknown [id number] Medicare [id number] Medicare [facility] [id number] Private Health Insurance [facility] [id number] Self-pay [facility] [id number] Social History Date Type Detail Facility Start: 10-09-2016 End: 10-19-2024 Tobacco smoking status NHIS Never smoked tobacco [facility] Start: 08-15-2021 End: 10-27-2024 Alcohol intake Current drinker of alcohol (finding) [facility] Start: 01-02-2020 End: 09-06-2022 History SDOH Alcohol Frequency 2 [facility] Start: 01-02-2020 End: 09-06-2022 History SDOH Alcohol Std Drinks 1 [facility] Start: 01-02-2020 History SDOH Social Connections Phone 5 [facility] Start: 01-02-2020 History SDOH Social Connections Meetings 98 [facility] Start: 01-02-2020 History SDOH Social Connections Living 3 [facility] Start: 01-02-2020 History SDOH Physical Activity DPW 0 [facility] Start: 01-02-2020 History SDOH Stress 4 [facility] Start: 01-02-2020 Education 15 [facility] Start: 10-09-2016 End: 10-19-2024 Tobacco Comment Lived with 2 smoking parents for 18 years. Spouse non-smoke. [facility] Start: 1950 Sex Assigned At Not on file [facility] Start: 12-15-2020 End: 09-06-2022 Exposure to SARS-CoV-2 (event) Not sure [facility] Start: 04-22-2021 Tobacco smoking status NHIS Unknown if ever smoked [facility] Work Phone: Start: 02-27-2021 Rare [facility] Work Phone: Start: 02-27-2021 None [facility] Work Phone: Start: 06-26-2017 Spouse/ Significant Other [facility] Work Phone: Start: 02-27-2021 Non-smoker [facility] Work Phone: Start: 1950 End: 1950 Sex Assigned At Female [facility] Work Phone: Start: 10-04-2021 End: 03-10-2022 Exposure to SARS-CoV-2 (event) Unable to assess [facility] Start: 10-09-2016 End: 10-19-2024 Tobacco use and exposure Smokeless tobacco non-user [facility] Work Phone: Start: 03-08-2022 History SDOH Alcohol Comment 1 PER YEAR [facility] Work Phone: Start: 01-02-2020 End: 10-27-2024 History of Social function [facility] Start: 01-02-2020 End: 10-27-2024 Social connection and isolation panel [facility] Do you belong to any clubs or organizations such as sabianist groups, unions, fraternal or athletic groups, or school groups? No [facility] How often do you att end meetings of the clubs or organizations you belong to? Patient refused [facility] Are you now , , , , never or living with a partner? [facility] How often to you hav e a drink containing alcohol? Monthly or less [facility] How many standard dr inks containing alcohol do you have on a typical day? 1 or 2 [facility] How often do you hav e 6 or more drinks on 1 occasion? Never [facility] How hard is it for y ou to pay for the very basics like food, housing, medical care, and heating Not very hard [facility] Do you feel stress - tense, restless, nervous, or anxious, or unable to sleep at night because your mind is troubled all the time - these days [OSQ] Rather much [facility] (I/We) worried [place] er (my/our) food would run out before (I/we) got money to buy more. Sometimes true [facility] The food that (I/we) bought just didn't last, and (I/we) didn't have money to get more. Never true [facility] Start: 12-03-2021 Gender identity Identifies as female gender (finding) [facility] Start: 07-09-2024 Alcohol Comment occasional [facility] Start: 04-03-2022 Sex Female (finding) [facility] Medical Equipment Procedure Code Equipment Code Equipment Original Text Equipment Identifier Dates Reinaldo Bn Smplx Hv Fd - [id number] Start: 12-26-2013 Reinaldo Bn Smplx Hv Fd - [id number] Start: 12-26-2013 Comp Fem 3 Rt Kn Reinaldo Ps Pfc - [id number] Start: 12-26-2013 Ins Tib Xlnk - [id number] Start: 12-26-2013 Comp Tibtry 3 Kn Reinaldo Mdlr Sig - [id number] Start: 12-26-2013 Dome Pat 38mm Pf c Sig Std Kn - [id number] Start: 12-26-2013 [id number], [id number], [id number] Start: 01-04-2018 End: 07-24-2021 Comment on above: Test blood sugar(s) 3 times daily. Dx: Other DM Code E11.42 Insulin: Yes Use as directed once a month. 1 Each as directed. Use one each with Vitamin B 12 injections weekly for 3 doses and then monthly. Functional Status Date Assessment Result Facility 01-25-2015 Are you deaf, or do you have serious difficulty hearing No 01/25/2015 11:16 AM Lora Alegria Ma No [facility] 01-25-2015 Are you blind, or do you have serious difficulty seeing, even when wearing glasses Yes 01/25/2015 11:16 AM Lora Alegria Ma Yes [facility] 01-25-2015 Do you have serious difficulty walking or climbing stairs Yes 01/25/2015 11:16 AM EDT Lora Acuna Ma Yes [facility] 01-25-2015 Do you have difficul ty dressing or bathing Yes 01/25/2015 11:16 AM EDT Lora Acuna Ma Yes [facility] 01-25-2015 Because of a physica l, mental, or emotional condition, do you have difficulty doing errands alone such as visiting a physician's office or shopping Yes 01/25/2015 11:16 AM EDT Lora Acuna Ma Yes [facility] Mental Status Date Assessment Result Facility 01-25-2015 Because of a physica l, mental, or emotional condition, do you have serious difficulty concentrating, remembering, or making decisions No 01/25/2015 11:16 AM EDT Lora Acuna Ma No [facility] Clinical Notes 01-04-2018 to 11-08-2024 Felix David RT(R) - 10/27/2024 11:40 AM Steven Sutton - 10/27/2024 11:29 AM Del Shultz RN - 10/27/2024 10:44 AM EDTPatient InstructionsDischarge InstructionsAttachments Note Date & Type Note Facility 11-08-2024 Note HNO ID: [id number] Author: SHALINI MERA RT(R) Service: ? Author Type: Technologist Type: Progress Notes Filed: 11/08/2024 11:16 Note Text: Radiology Service Progress Note PATIENT NAME: Randolph Hunter DATE OF SERVICE: November 08, 2024 TIME: 11:14 AM PATIENT IDENTITY VERIFICATION COMPLETED USING TWO (2) IDENTIFIERS: Name and Date of confirmed by patient verbally. FALL SCREENING: Has the patient had 2 falls in the last year or 1 fall with injury or currently using an Ambulatory Assistive Device (Walker, Cane, Wheelchair, Crutches, etc.)? No PATIENT GENDER DATA: Assigned female at . 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 Lavender Administered: No PERIPHERAL IV DATA: Not applicable SIGNED BY: RT Faustina(R) November 08, 2024 11:14 AM [facility] 11-04-2024 Note HNO ID: [id number] Author: GILMER COTTON, PhD Service: ? Author Type: Psychologist Type: Progress Notes Filed: 11/04/2024 11:56 Note Text: [facility] Behavioral Health Department Progress Note Randolph Hunter 11/04/2024 [id number] PROVIDER: Gilmer Cotton, PhD CPT Code: Time: 50 minutes Setting: Due to the federal emergency declaration and the need for ongoing mental health services, the following visit was completed virtually and informed consent obtained orally to reduce the risk of COVID-19 exposure. Oral consent to services related to virtual visits was obtained after information was sent via [employer] or read to patient if [employer] not available." Parties Present: Patient Treatment Modality/Interventions: Cognitive Behavioral Reassurance/Supportive Insight oriented Problem solving Processing of emotions Psychoeducation MENTAL STATUS: Mood: variable, dysthymic, fearful Affect: mood-congruent Thoughts/Associations:goal directed Suicidal/Homicidal Ideation: None expressed or evidenced Other Prominent Symptoms: Therapy Focus/Content of Session: Self-care, Mood/affect regulation, Self-esteem, and Coping with chronic illness concerns that she has to move because Medicaid said she owes 350 / mo over a year so considering [facility] [place] is doing a walk through today pt can get out of bed to the Wheel Chair on her own using a sliding board Depressed because of the circumstances currently pneumonia also making it worse Kennedi and Yoly are both both are having boys pt likes children most when they can talk or a few words MEDICATIONS: Per medical record: Current Outpatient Medications Medication Sig acetaminophen (TYLENOL) 500 mg tablet Take 2 tablets by mouth every 6 hours as needed for pain or fever (specify temp.). benzonatate (TESSALON PERLE) 100 mg capsule Take 1 capsule by mouth three times a day as needed for cough. gabapentin 100 mg tab Take 3 tablets by mouth three times a day for 30 days. FLUoxetine (PROZAC) 20 mg capsule Take 1 capsule by mouth once daily. hydrOXYzine HCl (ATARAX) 25 mg tablet Take 1 tablet by mouth two times a day. miconazole 2 % powder Apply 1 application to affected area two times a day. hydrOXYzine pamoate (VISTARIL) 25 mg capsule Take 25 mg by mouth three times a day as needed for anxiety. albuterol (PROVENTIL) 2.5 mg /3 mL (0.083 %) nebulizer solution 3 mL as needed Inhalation every 6 hrs (Patient not taking: Reported on 10/19/2024) hydrOXYchloroQUINE (PLAQUENIL) 200 mg tablet mupirocin (BACTROBAN) 2 % ointment Apply to affected area once daily. APPLY TO AFFECTED AREA prazosin (MINIPRESS) 1 mg cap 2 mg. folic acid 1 mg tablet Take 1 tablet by mouth every afternoon. Nystatin, Bulk, 10 billion unit powd Apply to affected area. traZODone (DESYREL) 50 mg tablet Take 150 mg by mouth every evening. metFORMIN ER (GLUCOPHAGE XR) 500 mg 24 hr tablet Take 500 mg by mouth twice daily. levothyroxine (SYNTHROID) 150 mcg tablet Take 1 tablet by mouth once daily. Take on empty stomach. For thyroid HYDROcodone-acetaminophen (NORCO) 5-325 mg per tablet Take 1 tablet by mouth every 6 hours as needed for pain for up to 30 days. warfarin (COUMADIN) 5 mg tablet 7.5 mg Mon/Fri, 5 mg all other days or as directed mirtazapine (REMERON) 30 mg tablet Take 1 tablet by mouth daily at bedtime. (Patient not taking: Reported on 10/27/2024) nitroglycerin sublingual (NITROQUICK) 0.4 mg SL tablet Dissolve 1 tablet under the tongue every 5 minutes as needed for chest pain. FOR CHEST PAIN. IF NO RELIEF CALL 911 ramipril (ALTACE) 5 mg capsule Take 1 capsule by mouth once daily. metoprolol succinate ER (TOPROL XL) 100 mg Take 1 tablet by mouth once daily. Syringe with Needle, Disp, (MONOJECT TB SAFETY SYRINGE) 1 mL 25 gauge x 5/8" Use as directed once a month. blood sugar diagnostic (Revel Touch VERIO TEST STRIPS) test strip Test blood sugar(s) 3 times daily. Dx: Other DM Code E11.42 Insulin: Yes ketoconazole (NIZORAL) 2 % cream Apply 1 application to affected area once daily. Syringe with Needle, Safety 3 mL 23 gauge x 1" 1 Each as directed. Use one each with Vitamin B 12 injections weekly for 3 doses and then monthly. fluticasone (FLONASE) 50 mcg/actuation nasal spray Use 2 Sprays in each nostril once daily. Rinse mouth after use. Magnesium Oxide 500 mg tab Take 500 mg by mouth once daily. (Patient not taking: Reported on 10/27/2024) melatonin 10 mg tab Take 1 tablet by mouth daily at bedtime. aspirin, enteric coated (ASPIR-LOW) 81 mg EC tablet Take 1 tablet by mouth once daily. MULTIVITAMIN ORAL Take by mouth. OTC One A Day Womens Spirometers and Accessories gui Incentive spirometer. Deep breathe hourly while awake. PT/INR test meter (COAGUCHEK XS PRO) misc Check Protime weekly. Dx: pulmonary embolism, V58.61 COMPOUNDED PRESCRIPTION Hospital bed all electric with adjustable head and (more content not included)... [facility] 10-27-2024 History of Present illness Narrative Radiology Service Progress Note PATIENT NAME: Randolph Hunter DATE OF SERVICE: October 27, 2024 TIME: 11:40 AM PATIENT IDENTITY VERIFICATION COMPLETED USING TWO (2) IDENTIFIERS: Name and Date of confirmed by patient verbally. FALL SCREENING: Has the patient had 2 falls in the last year or 1 fall with injury or currently using an Ambulatory Assistive Device (Walker, Cane, Wheelchair, Crutches, etc.)? Yes, Patient High Risk for Falls What interventions were put in place to prevent falls during this visit? pt done in wheelchair PATIENT GENDER DATA: Assigned female at . status: : No status: NO. PATIENT RELEVANT IMPLANT DATA REVIEWED: Not Applicable PATIENT PRESENTS WITH AN IMPLANTABLE OR ATTACHED MUD ANALYSIS WELL LOGGING OPERATOR: No RADIOLOGY DEPARTMENT: General X-ray: Exam(s) Completed: Lower Extremity X-Ray(s): Tibia Fibula, Left and Ankle, Left PERIPHERAL IV DATA: Not applicable SIGNED BY: RT Ari(Jessica) October 27, 2024 11:40 AM documented in this encounter [facility] 10-27-2024 Note HNO ID: [id number] Author: FELIX DAVID RT(Jessica) Service: Radiology Author Type: Technologist Type: Progress Notes Filed: 10/27/2024 12:04 Note Text: Radiology Service Progress Note PATIENT NAME: Randolph Hunter DATE OF SERVICE: October 27, 2024 TIME: 11:40 AM PATIENT IDENTITY VERIFICATION COMPLETED USING TWO (2) IDENTIFIERS: Name and Date of confirmed by patient verbally. FALL SCREENING: Has the patient had 2 falls in the last year or 1 fall with injury or currently using an Ambulatory Assistive Device (Walker, Cane, Wheelchair, Crutches, etc.)? Yes, Patient High Risk for Falls What interventions were put in place to prevent falls during this visit? pt done in wheelchair PATIENT GENDER DATA: Assigned female at . status: : No status: NO. PATIENT RELEVANT IMPLANT DATA REVIEWED: Not Applicable PATIENT PRESENTS WITH AN IMPLANTABLE OR ATTACHED MUD ANALYSIS WELL LOGGING OPERATOR: No RADIOLOGY DEPARTMENT: General X-ray: Exam(s) Completed: Lower Extremity X-Ray(s): Tibia Fibula, Left and Ankle, Left PERIPHERAL IV DATA: Not applicable SIGNED BY: RT Ari(R) October 27, 2024 11:40 AM [facility] 10-27-2024 Note HNO ID: [id number] Author: STEVEN PELAEZ, ? Service: ? Author Type: Physician Type: Progress Notes Filed: 10/27/2024 11:29 Note Text: Terry Khalil is a 74-year-old female with a history of cerebral palsy, presenting for left ankle pain and instability following a fall in August. Left Ankle Pain and Instability: - Fall occurred at the end of August while transferring from a lift chair to a wheelchair; left leg and ankle were twisted behind her. - Visited the ED twice on September 18 due to inability to stand and perform ADLs; was admitted for 15 days. - Currently in a rehab center, receiving PT, OT, and speech therapy. - Reports persistent pain on the outer left ankle radiating upwards when standing; describes pain as feeling like "somebody's constantly jabbing at the ankle. - Unable to walk; can stand but cannot hold herself up. - Concerns about potential torn ligament. - History of knee surgery with nerve damage affecting mobility. Cerebral Palsy: - Affects balance and mobility; has difficulty standing. Musculoskeletal: (+) left ankle pain, (+) left ankle instability Neurological: (+) difficulty standing, (+) inability to walk PAST MEDICAL HISTORY Diagnosis Date CAD (coronary artery disease) Carotid artery stenosis Cerebral palsy (HCC) Chronic depressive personality disorder Diarrhea Dyslipidemia Edema bilat Hirsutism Hypertension Hypothyroid Insomnia Migraines Morbid obesity (HCC) Osteomyelitis of foot (HCC) Pulmonary embolism (HCC) Pulmonary embolism (HCC) 2011 SLE (systemic lupus erythematosus) (HCC) Type II or unspecified type diabetes mellitus without mention of complication, uncontrolled Unspecified asthma(493.90) Unspecified venous (peripheral) insufficiency Current Outpatient Medications Medication Sig Dispense Refill acetaminophen (TYLENOL) 500 mg tablet Take 2 tablets by mouth every 6 hours as needed for pain or fever (specify temp.). benzonatate (TESSALON PERLE) 100 mg capsule Take 1 capsule by mouth three times a day as needed for cough. gabapentin 100 mg tab Take 3 tablets by mouth three times a day for 30 days. FLUoxetine (PROZAC) 20 mg capsule Take 1 capsule by mouth once daily. 90 capsule hydrOXYzine HCl (ATARAX) 25 mg tablet Take 1 tablet by mouth two times a day. miconazole 2 % powder Apply 1 application to affected area two times a day. hydrOXYzine pamoate (VISTARIL) 25 mg capsule Take 25 mg by mouth three times a day as needed for anxiety. hydrOXYchloroQUINE (PLAQUENIL) 200 mg tablet mupirocin (BACTROBAN) 2 % ointment Apply to affected area once daily. APPLY TO AFFECTED AREA prazosin (MINIPRESS) 1 mg cap 2 mg. folic acid 1 mg tablet Take 1 tablet by mouth every afternoon. Nystatin, Bulk, 10 billion unit powd Apply to affected area. traZODone (DESYREL) 50 mg tablet Take 150 mg by mouth every evening. metFORMIN ER (GLUCOPHAGE XR) 500 mg 24 hr tablet Take 500 mg by mouth twice daily. warfarin (COUMADIN) 5 mg tablet 7.5 mg Mon/Fri, 5 mg all other days or as directed 90 tablet 3 nitroglycerin sublingual (NITROQUICK) 0.4 mg SL tablet Dissolve 1 tablet under the tongue every 5 minutes as needed for chest pain. FOR CHEST PAIN. IF NO RELIEF CALL 911 1 Bottle of 25 3 ramipril (ALTACE) 5 mg capsule Take 1 capsule by mouth once daily. 90 capsule 3 metoprolol succinate ER (TOPROL XL) 100 mg Take 1 tablet by mouth once daily. 90 tablet 0 Syringe with Needle, Disp, (MONOJECT TB SAFETY SYRINGE) 1 mL 25 gauge x 5/8" Use as directed once a month. 12 Each 0 blood sugar diagnostic (ONETOUCH VERIO TEST STRIPS) test strip Test blood sugar(s) 3 times daily. Dx: Other DM Code E11.42 Insulin: Yes 300 Strip 3 ketoconazole (NIZORAL) 2 % cream Apply 1 application to affected area once daily. 60 g 2 Syringe with Needle, Safety 3 mL 23 gauge x 1" 1 Each as directed. Use one each with Vitamin B 12 injections weekly for 3 doses and then monthly. 15 Each 0 fluticasone (FLONASE) 50 mcg/actuation nasal spray Use 2 Sprays in each nostril once daily. Rinse mouth after use. 1 Bottle 11 melatonin 10 mg tab Take 1 tablet by mouth daily at bedtime. aspirin, enteric coated (ASPIR-LOW) 81 mg EC tablet Take 1 tablet by mouth once daily. MULTIVITAMIN ORAL Take by mouth. OTC One A Day Womens Spirometers and Accessories gui Incentive spirometer. Deep breathe hourly while awake. 1 Device 0 PT/INR test meter (COAGUCHEK XS PRO) misc Check Protime weekly. Dx: pulmonary embolism, V58.61 1 Each 0 COMPOUNDED PRESCRIPTION Hospital bed all electric with adjustable head and feet. 415.19; 343.8; 782.3; 787.91; V43.65 1 Each 0 albuterol (PROVENTIL) 2.5 mg /3 mL (0.083 %) nebulizer solution 3 mL as needed Inhalation every 6 hrs (Patient not taking: Reported on 10/19/2024) levothyroxine (SYNTHROID) 150 mcg tablet Take 1 tablet by mouth once daily. Take on empty stomach. For thyroid 30 tablet 5 HYDROcodone-acetaminophen (NORCO) 5-325 mg (more content not included)... [facility] 10-27-2024 History of Present illness Narrative Terry Khalil is a 74-year-old female with a history of cerebral palsy, presenting for left ankle pain and instability following a fall in August. Left Ankle Pain and Instability: - Fall occurred at the end of August while transferring from a lift chair to a wheelchair; left leg and ankle were twisted behind her. - Visited the ED twice on September 18 due to inability to stand and perform ADLs; was admitted for 15 days. - Currently in a rehab center, receiving PT, OT, and speech therapy. - Reports persistent pain on the outer left ankle radiating upwards when standing; describes pain as feeling like "somebody's constantly jabbing at the ankle. - Unable to walk; can stand but cannot hold herself up. - Concerns about potential torn ligament. - History of knee surgery with nerve damage affecting mobility. Cerebral Palsy: - Affects balance and mobility; has difficulty standing. Musculoskeletal: (+) left ankle pain, (+) left ankle instability Neurological: (+) difficulty standing, (+) inability to walk PAST MEDICAL HISTORY Diagnosis Date CAD (coronary artery disease) Carotid artery stenosis Cerebral palsy (HCC) Chronic depressive personality disorder Diarrhea Dyslipidemia Edema bilat Hirsutism Hypertension Hypothyroid Insomnia Migraines Morbid obesity (HCC) Osteomyelitis of foot (HCC) Pulmonary embolism (HCC) Pulmonary embolism (HCC) 2011 SLE (systemic lupus erythematosus) ([facility]) Type II or unspecified type diabetes mellitus without mention of complication, uncontrolled Unspecified asthma(493.90) Unspecified venous (peripheral) insufficiency Current Outpatient Medications Medication Sig Dispense Refill acetaminophen (TYLENOL) 500 mg tablet Take 2 tablets by mouth every 6 hours as needed for pain or fever (specify temp.). benzonatate (TESSALON PERLE) 100 mg capsule Take 1 capsule by mouth three times a day as needed for cough. gabapentin 100 mg tab Take 3 tablets by mouth three times a day for 30 days. FLUoxetine (PROZAC) 20 mg capsule Take 1 capsule by mouth once daily. 90 capsule hydrOXYzine HCl (ATARAX) 25 mg tablet Take 1 tablet by mouth two times a day. miconazole 2 % powder Apply 1 application to affected area two times a day. hydrOXYzine pamoate (VISTARIL) 25 mg capsule Take 25 mg by mouth three times a day as needed for anxiety. hydrOXYchloroQUINE (PLAQUENIL) 200 mg tablet mupirocin (BACTROBAN) 2 % ointment Apply to affected area once daily. APPLY TO AFFECTED AREA prazosin (MINIPRESS) 1 mg cap 2 mg. folic acid 1 mg tablet Take 1 tablet by mouth every afternoon. Nystatin, Bulk, 10 billion unit powd Apply to affected area. traZODone (DESYREL) 50 mg tablet Take 150 mg by mouth every evening. metFORMIN ER (GLUCOPHAGE XR) 500 mg 24 hr tablet Take 500 mg by mouth twice daily. warfarin (COUMADIN) 5 mg tablet 7.5 mg Mon/Fri, 5 mg all other days or as directed 90 tablet 3 nitroglycerin sublingual (NITROQUICK) 0.4 mg SL tablet Dissolve 1 tablet under the tongue every 5 minutes as needed for chest pain. FOR CHEST PAIN. IF NO RELIEF CALL 911 1 Bottle of 25 3 ramipril (ALTACE) 5 mg capsule Take 1 capsule by mouth once daily. 90 capsule 3 metoprolol succinate ER (TOPROL XL) 100 mg Take 1 tablet by mouth once daily. 90 tablet 0 Syringe with Needle, Disp, (MONOJECT TB SAFETY SYRINGE) 1 mL 25 gauge x 5/8" Use as directed once a month. 12 Each 0 blood sugar diagnostic (ONETOUCH VERIO TEST STRIPS) test strip Test blood sugar(s) 3 times daily. Dx: Other DM Code E11.42 Insulin: Yes 300 Strip 3 ketoconazole (NIZORAL) 2 % cream Apply 1 application to affected area once daily. 60 g 2 Syringe with Needle, Safety 3 mL 23 gauge x 1" 1 Each as directed. Use one each with Vitamin B 12 injections weekly for 3 doses and then monthly. 15 Each 0 fluticasone (FLONASE) 50 mcg/actuation nasal spray Use 2 Sprays in each nostril once daily. Rinse mouth after use. 1 Bottle 11 melatonin 10 mg tab Take 1 tablet by mouth daily at bedtime. aspirin, enteric coated (ASPIR-LOW) 81 mg EC tablet Take 1 tablet by mouth once daily. MULTIVITAMIN ORAL Take by mouth. OTC One A Day Womens Spirometers and Accessories gui Incentive spirometer. Deep breathe hourly while awake. 1 Device 0 PT/INR test meter (COAGUCHEK XS PRO) misc Check Protime weekly. Dx: pulmonary embolism, V58.61 1 Each 0 COMPOUNDED PRESCRIPTION Hospital bed all electric with adjustable head and feet. 415.19; 343.8; 782.3; 787.91; V43.65 1 Each 0 albuterol (PROVENTIL) 2.5 mg /3 mL (0.083 %) nebulizer solution 3 mL as needed Inhalation every 6 hrs (Patient not taking: Reported on 10/19/2024) levothyroxine (SYNTHROID) 150 mcg tablet Take 1 tablet by mouth once daily. Take on empty stomach. For thyroid 30 tablet 5 HYDROcodone-acetaminophen (NORCO) 5-325 mg per tablet Take 1 tablet by mouth every 6 hours as needed for pain for up to 30 days. 90 tablet 0 mirtazapine (REMERON) 30 mg tablet Take 1 tablet by mouth daily at bedtime. (Patient not taking: Reported on 10/27/2024) 90 tablet 3 Magnesium Oxide 500 mg tab Take 500 mg by mouth once daily. (Patient not taking: Reported on 10/27/2024) No current facility-administered medications for this visit. Family History Problem Relation Age of Onset Asthma Mother Diabetes Mother Heart Mother Cancer Mother COLON COPD Mother Hypertension Mother Osteoporosis Father Heart Father Cancer Father lung COPD Father other (AAA) Father other (brain tumor) Brother brain other (AAA) Paternal Grandfather Objective There were no vitals taken for this visit. - Cardiovascular: DP and PT pulses non-palpable bilaterally, likely due to lower extremity edema. Diminished hair growth on bilateral feet. Moderate edema noted in bilateral feet, legs, and ankles. - Skin: Multiple healed surgical scars on anterior left leg, medial left instep, left first MTP joint, and dorsal left midfoot. No open sores or calluses on bilateral feet. Toenails 1-5 bilaterally of normal length and thickness. - Neurological: Protective sensation absent in bilateral lower extremities. Vibratory sensation absent in bilateral feet. - Musculoskeletal: - Left Ankle: - Pain present in lateral ankle and lateral leg. - MMT: Dorsiflexion, plantarflexion, inversion, and eversion 4/5. - Provocative test: No laxity noted with anterior drawer test. - Right Ankle: - MMT: Dorsiflexion, plantarflexion, inversion, and eversion 5/5. Labs: Tests: Imaging: (09/18/2024) Left ankle X-ray: Significant soft tissue swelling with no evidence of a fracture 1. Sprain of left ankle, unspecified ligament, initial encounter (S93.402A) 2. Ankle instability, left (M25.372) 3. Chronic pain of left ankle (M25.572) - Left ankle sprain and instability with chronic pain; initial X-rays from September 18 showed significant soft tissue swelling without fracture. - Ordered X-rays of the left ankle and leg to assess assure no fracture. -she has done physical therapy with minimal improvement. has concerns about torn ligament. Will order mri to access for any structural damage. if structural damage, may warrant continued therapy as I would worry any surgical intervention in the setting of chronic swelling may be more harm than benefit. - Continue physical therapy to improve strength and stability. Attestation Recording using threadsy software for draft documentation of the visit was discussed with the patient/authorized inside technical sales representative; all questions welcomed and answered. Patient/authorized inside technical sales representative agreed to proceed Steven Pelaez DPM Patient presents with: Left Foot - Established Patient, Pain Left Ankle - Established Patient, Pain AMB ROOMING INTAKE FLOWSHEET DATA Pain Pain Level: 5 Pain Location: Other: See Comment (left foot/ankle) Description: Sharp, Aching, Throbbing Duration Amount of Time: 2 Duration Units: Months Frequency: Intermittent Intervention/Comfort measure: Relaxation, Reposition Patient presents for left foot/ankle pain. States that she fell 2 months ago and injured herself. She is currently at [facility]. Has a history of cerebral palsy with left sided decreased sensation, but states that when she stands or puts pressure on the foot she is still having pain. XRay of left ankle was done 09/18/24. ИРИНА 12/15/23 documented in this encounter [facility] 10-27-2024 Instructions Steven Pelaez - 10/27/2024 11:25 AM EDT You have a diagnosed left ankle sprain with associated instability. An x-ray of your left ankle and leg was ordered today to reassess the injury. An MRi of left ankle has been ordered. due to failed improvement with therapy, pursue mri Continue with your current physical, occupational, and speech therapies at the rehab center. documented in this encounter [facility] 10-27-2024 Note HNO ID: [id number] Author: DEL ISBELL RN Service: ? Author Type: Registered Nurse Type: Progress Notes Filed: 10/27/2024 11:29 Note Text: Patient presents with: Left Foot - Established Patient, Pain Left Ankle - Established Patient, Pain AMB ROOMING INTAKE FLOWSHEET DATA Pain Pain Level: 5 Pain Location: Other: See Comment (left foot/ankle) Description: Sharp, Aching, Throbbing Duration Amount of Time: 2 Duration Units: Months Frequency: Intermittent Intervention/Comfort measure: Relaxation, Reposition Patient presents for left foot/ankle pain. States that she fell 2 months ago and injured herself. She is currently at [facility]. Has a history of cerebral palsy with left sided decreased sensation, but states that when she stands or puts pressure on the foot she is still having pain. XRay of left ankle was done 09/18/24. ИРИНА 12/15/23 [facility] 10-19-2024 History of Present illness Narrative Associated Order(s): Large Joint Arthro/Inj: L knee joint Post-Procedure Diagnose(s): Primary osteoarthritis of left knee Images from the original note were not included. HISTORY OF PRESENT ILLNESS: Randolph is a 74 year old female. She is here for evaluation of Left knee pain. Was seen in ED on 09/18/[address] scan showing degenerative changes and a small knee effusion. Uses tylenol for pain control. Patient has cerebral palsy. Today she states her pain is intermittent throbbing 5/10. She currently she is taking Oxycodone for pain control. Reports left ankle pain as well. Recommended follow up with Dr. Pelaez as she has seen him in the past. PAIN EVALUATION 10/19/2024 0943 Pain Level: 5 Pain Location: Knee-Left Description: Throbbing Duration Amount of Time: -- 09/18/2024 Frequency: Intermittent Intervention/Comfort measure: Medication;Reposition;Relaxation MEDICATIONS Current Outpatient Medications on File Prior to Visit Medication Sig acetaminophen (TYLENOL) 500 mg tablet Take 2 tablets by mouth every 6 hours as needed for pain or fever (specify temp.). benzonatate (TESSALON PERLE) 100 mg capsule Take 1 capsule by mouth three times a day as needed for cough. gabapentin 100 mg tab Take 3 tablets by mouth three times a day for 30 days. FLUoxetine (PROZAC) 20 mg capsule Take 1 capsule by mouth once daily. hydrOXYzine HCl (ATARAX) 25 mg tablet Take 1 tablet by mouth two times a day. miconazole 2 % powder Apply 1 application to affected area two times a day. hydrOXYzine pamoate (VISTARIL) 25 mg capsule Take 25 mg by mouth three times a day as needed for anxiety. albuterol (PROVENTIL) 2.5 mg /3 mL (0.083 %) nebulizer solution 3 mL as needed Inhalation every 6 hrs hydrOXYchloroQUINE (PLAQUENIL) 200 mg tablet mupirocin (BACTROBAN) 2 % ointment Apply to affected area once daily. APPLY TO AFFECTED AREA prazosin (MINIPRESS) 1 mg cap 2 mg. folic acid 1 mg tablet Take 1 tablet by mouth every afternoon. Nystatin, Bulk, 10 billion unit powd Apply to affected area. traZODone (DESYREL) 50 mg tablet Take 150 mg by mouth every evening. metFORMIN ER (GLUCOPHAGE XR) 500 mg 24 hr tablet Take 500 mg by mouth twice daily. levothyroxine (SYNTHROID) 150 mcg tablet Take 1 tablet by mouth once daily. Take on empty stomach. For thyroid HYDROcodone-acetaminophen (NORCO) 5-325 mg per tablet Take 1 tablet by mouth every 6 hours as needed for pain for up to 30 days. warfarin (COUMADIN) 5 mg tablet 7.5 mg Mon/Fri, 5 mg all other days or as directed mirtazapine (REMERON) 30 mg tablet Take 1 tablet by mouth daily at bedtime. nitroglycerin sublingual (NITROQUICK) 0.4 mg SL tablet Dissolve 1 tablet under the tongue every 5 minutes as needed for chest pain. FOR CHEST PAIN. IF NO RELIEF CALL 911 ramipril (ALTACE) 5 mg capsule Take 1 capsule by mouth once daily. metoprolol succinate ER (TOPROL XL) 100 mg Take 1 tablet by mouth once daily. Syringe with Needle, Disp, (MONOJECT TB SAFETY SYRINGE) 1 mL 25 gauge x 5/8" Use as directed once a month. blood sugar diagnostic ([employer] Touch VERIO TEST STRIPS) test strip Test blood sugar(s) 3 times daily. Dx: Other DM Code E11.42 Insulin: Yes ketoconazole (NIZORAL) 2 % cream Apply 1 application to affected area once daily. Syringe with Needle, Safety 3 mL 23 gauge x 1" 1 Each as directed. Use one each with Vitamin B 12 injections weekly for 3 doses and then monthly. fluticasone (FLONASE) 50 mcg/actuation nasal spray Use 2 Sprays in each nostril once daily. Rinse mouth after use. Magnesium Oxide 500 mg tab Take 500 mg by mouth once daily. melatonin 10 mg tab Take 1 tablet by mouth daily at bedtime. aspirin, enteric coated (ASPIR-LOW) 81 mg EC tablet Take 1 tablet by mouth once daily. MULTIVITAMIN ORAL Take by mouth. OTC One A Day Womens Spirometers and Accessories gui Incentive spirometer. Deep breathe hourly while awake. PT/INR test meter (SpotsterGUCHEK XS PRO) misc Check Protime weekly. Dx: pulmonary embolism, V58.61 COMPOUNDED PRESCRIPTION Hospital bed all electric with adjustable head and feet. 415.19; 343.8; 782.3; 787.91; V43.65 No current facility-administered medications on file prior to visit. ALLERGIES ALLERGIES Allergen Reactions Phenergan Vc [Prome* Mental Status Change Adhesive Tape (Bertha* Rash Paper tape, skin comes off. Adhesive Tape-Silic* Rash Ciprofloxacin Rash Not hives. Erythromycin Itching throat Keflex [Cephalexin] Itching throat Naprosyn [Naproxen] Intolerance didn't work Paroxetine Intolerance Paxil [Paroxetine H* Mental Status Change Penicillins Hives Dioxicillin Promethazine Intolerance [id number] Red* Myalgia PAST MEDICAL HISTORY PAST MEDICAL HISTORY Diagnosis Date CAD (coronary artery disease) Carotid artery stenosis Cerebral palsy (HCC) Chronic depressive personality disorder Diarrhea Dyslipidemia Edema bilat Hirsutism Hypertension Hypothyroid Insomnia Migraines Morbid obesity (HCC) Osteomyelitis of foot (HCC) Pulmonary embolism (HCC) Pulmonary embolism (HCC) 2011 SLE (systemic lupus erythematosus) (HCC) Type II or unspecified type diabetes mellitus without mention of complication, uncontrolled Unspecified asthma(493.90) Unspecified venous (peripheral) insufficiency PAST SURGICAL HISTORY PAST SURGICAL HISTORY Procedure Laterality Date APPENDECTOMY child ARTHROSCOPY KNEE DIAGNOSTIC W/WO SYNOVIAL BX SPX Arthroscopy, knee right ARTHRP KNE CONDYLE&PLATU MEDIAL&LAT COMPARTMENTS Right 12/2013 Dr Fany Cervantes. COLONOSCOPY FLX DX W/COLLJ SPEC WHEN PFRMD 10/23/06 COLONOSCOPY FLX DX W/COLLJ SPEC WHEN PFRMD 11/22/12 LAPAROSCOPY SURG CHOLECYSTECTOMY 06/06/09 PAST SURGICAL HISTORY OF 2004 Repair of torn R femoral artery PAST SURGICAL HISTORY OF Left foot surgery X 2 PERC TRANSL COR ANGIO 2008 Percutaneous Transluminal Coronary Angio Status TONSILLECTOMY PRIMARY/SECONDARY <AGE 13 Tonsillectomy TOTAL ABDOMINAL HYSTERECT W/WO RMVL TUBE OVARY 1998 Hysterectomy, BSO TRANSCATH STENT ADDN VESSEL,PERCUT 2004 Transcath stent addn vessel percut TRANSCATH STENT INIT VESSEL,PERCUT 2003 Transcath stent init vessel percut SOCIAL HISTORY Tobacco: Non-smoker, never smoked FAMILY HISTORY Does a similar condition to what you are experiencing run in your family? No REVIEW OF SYSTEMS: All other systems negative. PHYSICAL EXAM: PE: All other systems deferred. GENERAL: Appears healthy, well-nourished, no deformities. HABITUS: Obese Gait: Antalgic to the left and Ambulatory Aid: a wheelchair Left: Alignment: Valgus deformity, Correctable Range of motion is 5 degrees in extension and 110 degrees of flexion. Extension Lag: < 10 degrees Pain with ROM: Yes Effusion: Slight Tender to the palpation of Medial femoral condyle, Lateral femoral condyle, Medial joint line, and Lateral joint line Pain with patellar compression: Yes Stability: Anterior/Posterior stable and Varus/Valgus stable Hip Exam: flexion to 100+ degrees, full extension, internal/external rotation adequate, and no pain with log roll Neurovascular Status: Sensation Intact, Moves foot and ankle up & down, and 2+ dorsalis pedis Strength: 5 Skin: Normal RADIOGRAPHS (personally reviewed): left knee OA MRI: none DIAGNOSIS Encounter Diagnosis ICD-10-CM 1. Primary osteoarthritis of left knee M17.12 PLAN Patient has left knee OA with mild effusion as seen on CT from ED. Limited to treatment options as she is on blood thinners. Will proceed with left knee CSI today. She lives in facility and is undergoing PT currently. Follow up with [facility] for left foot pain. I spent a total of approximately 35 minutes on the date of the service which included preparing to see the patient, [id number] patient care, completing clinical documentation, obtaining and/or reviewing separately obtained history, performing a medically appropriate examination, counseling and educating the patient/family/caregiver, ordering medications, tests, or procedures, communicating with other HCPs (not separately reported), independently interpreting results (not separately reported), communicating results to the patient/family/caregiver, and care coordination (not separately reported). PROCEDURE: Large Joint Arthro/Inj: L knee joint 10/19/2024 10:43 AM The procedure site was prepped in the usual sterile fashion. Site: L knee joint Medications: 40 mg triamcinolone acetonide 40 mg/mL Anesthetics: 3 mL lidocaine (PF) 10 mg/mL (1 %) Outcome: Tolerated well, no immediate complications Post-injection instructions were reviewed with the patient and the patient voiced understanding of these instructions. Informed Consent Consent Obtained: Verbal [place] Protocol A moment to CARE was completed. SIGN IN Personnel directly involved with the procedure wore the appropriate PPE. Special Equipment: N/A Patient/Surrogate Stated/Verified: Patient name, Date of , Relevant allergies and Intended procedure TIME OUT Relevant labs, photos, and/or imaging studies have been reviewed. Intended patient and procedure match source documents. Consent obtained and matches the intended procedure. Correct side/site marked and visible. Medications required for procedure verified. No fire risk assessment and interventions applicable. No implant(s) inserted. SIGN OUT No specimen collected. All instruments, equipment, possible retained foreign bodies accounted for. The post-procedure POC has been communicated to the patient or surrogate. No post-procedure POC communication to the patient's multidisciplinary team (including the bedside nurse for hospitalized patients) applicable. Mendel Sharma PA-C documented in this encounter [facility] 10-19-2024 Note HNO ID: [id number] Author: MENDEL SHARMA PA-C Service: ? Author Type: Physician Process Control Board Operator Type: Progress Notes Filed: 10/19/2024 10:43 Note Text: HISTORY OF PRESENT ILLNESS: Randolph is a 74 year old female. She is here for evaluation of Left knee pain. Was seen in ED on 09/18/[address] scan showing degenerative changes and a small knee effusion. Uses tylenol for pain control. Patient has cerebral palsy. Today she states her pain is intermittent throbbing 5/10. She currently she is taking Oxycodone for pain control. Reports left ankle pain as well. Recommended follow up with Dr. Pelaez as she has seen him in the past. PAIN EVALUATION 10/19/2024 0944 Pain Level: 5 Pain Location: Knee-Left Description: Throbbing Duration Amount of Time: -- 09/18/2024 Frequency: Intermittent Intervention/Comfort measure: Medication;Reposition;Relaxation MEDICATIONS Current Outpatient Medications on File Prior to Visit Medication Sig acetaminophen (TYLENOL) 500 mg tablet Take 2 tablets by mouth every 6 hours as needed for pain or fever (specify temp.). benzonatate (TESSALON PERLE) 100 mg capsule Take 1 capsule by mouth three times a day as needed for cough. gabapentin 100 mg tab Take 3 tablets by mouth three times a day for 30 days. FLUoxetine (PROZAC) 20 mg capsule Take 1 capsule by mouth once daily. hydrOXYzine HCl (ATARAX) 25 mg tablet Take 1 tablet by mouth two times a day. miconazole 2 % powder Apply 1 application to affected area two times a day. hydrOXYzine pamoate (VISTARIL) 25 mg capsule Take 25 mg by mouth three times a day as needed for anxiety. albuterol (PROVENTIL) 2.5 mg /3 mL (0.083 %) nebulizer solution 3 mL as needed Inhalation every 6 hrs hydrOXYchloroQUINE (PLAQUENIL) 200 mg tablet mupirocin (BACTROBAN) 2 % ointment Apply to affected area once daily. APPLY TO AFFECTED AREA prazosin (MINIPRESS) 1 mg cap 2 mg. folic acid 1 mg tablet Take 1 tablet by mouth every afternoon. Nystatin, Bulk, 10 billion unit powd Apply to affected area. traZODone (DESYREL) 50 mg tablet Take 150 mg by mouth every evening. metFORMIN ER (GLUCOPHAGE XR) 500 mg 24 hr tablet Take 500 mg by mouth twice daily. levothyroxine (SYNTHROID) 150 mcg tablet Take 1 tablet by mouth once daily. Take on empty stomach. For thyroid HYDROcodone-acetaminophen (NORCO) 5-325 mg per tablet Take 1 tablet by mouth every 6 hours as needed for pain for up to 30 days. warfarin (COUMADIN) 5 mg tablet 7.5 mg Mon/Fri, 5 mg all other days or as directed mirtazapine (REMERON) 30 mg tablet Take 1 tablet by mouth daily at bedtime. nitroglycerin sublingual (NITROQUICK) 0.4 mg SL tablet Dissolve 1 tablet under the tongue every 5 minutes as needed for chest pain. FOR CHEST PAIN. IF NO RELIEF CALL 911 ramipril (ALTACE) 5 mg capsule Take 1 capsule by mouth once daily. metoprolol succinate ER (TOPROL XL) 100 mg Take 1 tablet by mouth once daily. Syringe with Needle, Disp, (MONOJECT TB SAFETY SYRINGE) 1 mL 25 gauge x 5/8" Use as directed once a month. blood sugar diagnostic ([employer] VERIO TEST STRIPS) test strip Test blood sugar(s) 3 times daily. Dx: Other DM Code E11.42 Insulin: Yes ketoconazole (NIZORAL) 2 % cream Apply 1 application to affected area once daily. Syringe with Needle, Safety 3 mL 23 gauge x 1" 1 Each as directed. Use one each with Vitamin B 12 injections weekly for 3 doses and then monthly. fluticasone (FLONASE) 50 mcg/actuation nasal spray Use 2 Sprays in each nostril once daily. Rinse mouth after use. Magnesium Oxide 500 mg tab Take 500 mg by mouth once daily. melatonin 10 mg tab Take 1 tablet by mouth daily at bedtime. aspirin, enteric coated (ASPIR-LOW) 81 mg EC tablet Take 1 tablet by mouth once daily. MULTIVITAMIN ORAL Take by mouth. OTC One A Day Womens Spirometers and Accessories gui Incentive spirometer. Deep breathe hourly while awake. PT/INR test meter (COAGUCHEK XS PRO) misc Check Protime weekly. Dx: pulmonary embolism, V58.61 COMPOUNDED PRESCRIPTION Hospital bed all electric with adjustable head and feet. 415.19; 343.8; 782.3; 787.91; V43.65 No current facility-administered medications on file prior to visit. ALLERGIES ALLERGIES Allergen Reactions Phenergan Vc [Prome* Mental Status Change Adhesive Tape (Bertha* Rash Paper tape, skin comes off. Adhesive Tape-Silic* Rash Ciprofloxacin Rash Not hives. Erythromycin Itching throat Keflex [Cephalexin] Itching throat Naprosyn [Naproxen] Intolerance didn't work Paroxetine Intolerance Paxil [Paroxetine H* Mental Status Change Penicillins Hives Dioxicillin Promethazine Intolerance Gigudkk-Ult-Wdz Red* Myalgia PAST MEDICAL HISTORY PAST MEDICAL HISTORY Diagnosis Date CAD (coronary artery disease) Carotid artery stenosis Cerebral palsy (HCC) Chronic depressive personality disorder Diarrhea Dyslipidemia Edema bilat Hirsutism Hypertension Hypothyroid Insomnia Migraines (more content not included)... [facility] 10-10-2024 Note HNO ID: [id number] Author: TRAVIS PATTERSON APRN.CLINICAL TRIALS MANAGER Service: ? Author Type: Nurse Practitioner Type: Progress Notes Filed: 10/10/2024 16:06 Note Text: Connected Care Unit Progress Note Patient Name: Randolph Hunter Patient Facility: [facility] Admit Date 09/28/2024 Level of Care: Skilled SNF Attending: Dr Baljinder Torre Service Date: 10/10/2024 Code Status: Full Code Chief Complaint: Evaluation regarding debility and rehabilitation ASSESSMENT AND PLAN ASSESSMENT/PLAN: 1. Fall at home, initial encounter - ICD9: E888.9, E849.0, ICD10: W19.XXXA, Y92.009 (primary diagnosis) 2. Cerebral palsy, unspecified type (HCC) - ICD9: 343.9, ICD10: G80.9 3. Brachial neuritis or radiculitis - ICD9: 723.4, ICD10: M54.1 4. Acute pain of right shoulder - ICD9: 719.41, ICD10: M25.511 5. Left knee pain, unspecified chronicity - ICD9: 719.46, ICD10: M25.562 With complaints of pain Continue Salonpas patch, oxycodone, 6. Diabetic polyneuropathy associated with type 2 diabetes mellitus (HCC) - ICD9: 250.60, 357.2, ICD10: E11.42 7. Neuropathy - ICD9: 355.9, ICD10: G62.9 8. Type 2 diabetes, controlled, with neuropathy (HCC) - ICD9: 250.60, 357.2, ICD10: E11.40 Monitor blood glucose levels ACHS Continue gabapentin, metformin Monitor vital signs Monitor labs 9. Atherosclerosis of [place] coronary artery of [place] heart without angina pectoris - ICD9: 414.01, ICD10: I25.10 10. Other pulmonary embolism without acute cor pulmonale, unspecified chronicity (HCC) - ICD9: 415.19, ICD10: I26.99 Continue Tessalon Perles, albuterol sulfate, metoprolol, ramipril, nitroglycerin, Coumadin, Monitor vistal signs Monitor labs 11. Debility - ICD9: 799.3, ICD10: R53.81 Certify therapies Maintain high falls risk precautions - pt/staff verbalize understanding validated via teach back Monitor safety awareness Travis Patterson Appointments for Next 60 Days Date Time Provider Location Dept Phone 10/19/2024 9:30 AM MENDEL SHAMRA [facility] [phone] 11/04/2024 11:00 AM [facility] [phone] 12/06/2024 11:00 AM [facility] [phone] 12/07/2024 3:40 PM RAVI MICHAEL [facility] [phone] HPI: (Per hospital discharge) Admission Information ADMIT DATE: 09/18/2024 DISCHARGE DATE: 09/28/2024 MY DOCTORS AND MEDICAL TEAM: My Main [facility] Doctor: Sage Loera MD Primary Care Provider: Raf Casey MD, MD My Medical Team Members: Treatment Team: Attending Provider: Sage Loera MD MY CONDITION AT DISCHARGE: Stable REASON I WAS IN THE HOSPITAL: Debility from cerebral palsy with acute left knee pain without fracture and inability to stand pivot necessitating going to prison facility for rehab SUMMARY OF WHAT HAPPENED WHILE I WAS IN THE HOSPITAL: Orthopedics agrees no surgical intervention now resume exercises when you get to the prison facility no ligamentous injury evident on CT scan. Follow-up with orthopedics only as needed if not improving 10/10/2024 update Randolph is sitting up in bed, she is alert and orient x 3. She denies any shortness of breath, chest comfort or pain. She is concerned that she has a UTI due to her INR being off. She will have a urinalysis completed, culture if needed. Her blood glucose checks will be decreased from 4 times a day down to twice a day. Her HgbA1c is 5.6. She continues to work with therapy to regain her strength and endurance. She has no concerns. Staff has no concerns magnesium level is 1.5, should be started on supplement. Her INR is pending for today. PAST MEDICAL HISTORY Diagnosis Date CAD (coronary artery disease) Carotid artery stenosis Cerebral palsy (HCC) Chronic depressive personality disorder Diarrhea Dyslipidemia Edema bilat Hirsutism Hypertension Hypothyroid Insomnia Migraines Morbid obesity (HCC) Osteomyelitis of foot (HCC) Pulmonary embolism (HCC) Pulmonary embolism (HCC) 2011 SLE (systemic lupus erythematosus) (HCC) Type II or unspecified type diabetes mellitus without mention of complication, uncontrolled Unspecified asthma(493.90) Unspecified venous (peripheral) insufficiency SUBJECTIVE: Review of Systems Constitutional: Positive for activity change. Negative for unexpected weight change. HENT: Negative for congestion, dental problem, ear discharge, hearing loss and rhinorrhea. Eyes: Negative. Respiratory: Negative for apnea, cough and choking. Cardiovascular: Positive for leg swelling. Negative for palpitations. Gastrointestinal: Negative for abdominal distention, abdominal pain, constipation, nausea and rectal pain. Endocrine: Negative. Genitourinary: Negative for difficulty urinating, dyspareunia, flank pain, hematuria and menstrual problem. Musculoskeletal: Positive for gait problem and myalgias. Negative for back pain. Neurological: Positive for weakness. Medication (more content not included)... [facility] 10-10-2024 History of Present illness Narrative Images from the original note were not included. Connected Care Unit Progress Note Patient Name: Randolph Hunter Patient Facility: [facility] Admit Date 09/28/2024 Level of Care: Skilled SNF Attending: Dr Baljinder Torre Service Date: 10/10/2024 Code Status: Full Code Chief Complaint: Evaluation regarding debility and rehabilitation ASSESSMENT AND PLAN ASSESSMENT/PLAN: 1. Fall at home, initial encounter - ICD9: E888.9, E849.0, ICD10: W19.XXXA, Y92.009 (primary diagnosis) 2. Cerebral palsy, unspecified type (HCC) - ICD9: 343.9, ICD10: G80.9 3. Brachial neuritis or radiculitis - ICD9: 723.4, ICD10: M54.1 4. Acute pain of right shoulder - ICD9: 719.41, ICD10: M25.511 5. Left knee pain, unspecified chronicity - ICD9: 719.46, ICD10: M25.562 With complaints of pain Continue Salonpas patch, oxycodone, 6. Diabetic polyneuropathy associated with type 2 diabetes mellitus (HCC) - ICD9: 250.60, 357.2, ICD10: E11.42 7. Neuropathy - ICD9: 355.9, ICD10: G62.9 8. Type 2 diabetes, controlled, with neuropathy (HCC) - ICD9: 250.60, 357.2, ICD10: E11.40 Monitor blood glucose levels ACHS Continue gabapentin, metformin Monitor vital signs Monitor labs 9. Atherosclerosis of [place] coronary artery of [place] heart without angina pectoris - ICD9: 414.01, ICD10: I25.10 10. Other pulmonary embolism without acute cor pulmonale, unspecified chronicity (HCC) - ICD9: 415.19, ICD10: I26.99 Continue Tessalon Perles, albuterol sulfate, metoprolol, ramipril, nitroglycerin, Coumadin, Monitor vistal signs Monitor labs 11. Debility - ICD9: 799.3, ICD10: R53.81 Certify therapies Maintain high falls risk precautions - pt/staff verbalize understanding validated via teach back Monitor safety awareness Travis Patterson Appointments for Next 60 Days Date Time Provider Location Dept Phone 10/19/2024 9:30 AM MENDEL SHARMA [facility] [phone] 11/04/2024 11:00 AM [facility] [phone] 12/06/2024 11:00 AM [facility] [phone] 12/07/2024 3:40 PM RAVI MICHAEL [facility] [phone] HPI: (Per hospital discharge) Admission Information ADMIT DATE: 09/18/2024 DISCHARGE DATE: 09/28/2024 MY DOCTORS AND MEDICAL TEAM: My Main [facility] Doctor: Sage Loera MD Primary Care Provider: Raf Casey MD, MD My Medical Team Members: Treatment Team: Attending Provider: Sage Loera MD MY CONDITION AT DISCHARGE: Stable REASON I WAS IN THE HOSPITAL: Debility from cerebral palsy with acute left knee pain without fracture and inability to stand pivot necessitating going to prison facility for rehab SUMMARY OF WHAT HAPPENED WHILE I WAS IN THE HOSPITAL: Orthopedics agrees no surgical intervention now resume exercises when you get to the prison facility no ligamentous injury evident on CT scan. Follow-up with orthopedics only as needed if not improving 10/10/2024 update Randolph is sitting up in bed, she is alert and orient x 3. She denies any shortness of breath, chest comfort or pain. She is concerned that she has a UTI due to her INR being off. She will have a urinalysis completed, culture if needed. Her blood glucose checks will be decreased from 4 times a day down to twice a day. Her HgbA1c is 5.6. She continues to work with therapy to regain her strength and endurance. She has no concerns. Staff has no concerns magnesium level is 1.5, should be started on supplement. Her INR is pending for today. PAST MEDICAL HISTORY Diagnosis Date CAD (coronary artery disease) Carotid artery stenosis Cerebral palsy (HCC) Chronic depressive personality disorder Diarrhea Dyslipidemia Edema bilat Hirsutism Hypertension Hypothyroid Insomnia Migraines Morbid obesity (HCC) Osteomyelitis of foot (HCC) Pulmonary embolism (HCC) Pulmonary embolism (HCC) 2011 SLE (systemic lupus erythematosus) ([facility]) Type II or unspecified type diabetes mellitus without mention of complication, uncontrolled Unspecified asthma(493.90) Unspecified venous (peripheral) insufficiency SUBJECTIVE: Review of Systems Constitutional: Positive for activity change. Negative for unexpected weight change. HENT: Negative for congestion, dental problem, ear discharge, hearing loss and rhinorrhea. Eyes: Negative. Respiratory: Negative for apnea, cough and choking. Cardiovascular: Positive for leg swelling. Negative for palpitations. Gastrointestinal: Negative for abdominal distention, abdominal pain, constipation, nausea and rectal pain. Endocrine: Negative. Genitourinary: Negative for difficulty urinating, dyspareunia, flank pain, hematuria and menstrual problem. Musculoskeletal: Positive for gait problem and myalgias. Negative for back pain. Neurological: Positive for weakness. Medications: Medications listed in Epic during SNF admission may not be current. Refer to facility record. Patient records, current medications, most recent labs, family/social history (unchanged) Reviewed. Refer to facility records. OBJECTIVE: Labs/diagnostics: 10/07/2024 GLUCOSE 108 mg/dL H Final GLUCOSE, FASTING 65-99 mg/dL GLUCOSE, NON-FASTING 65-125 mg/dL SODIUM 142 mEq/L 136-145 Final POTASSIUM 5.4 mEq/L 3.5-5.3 H Final CHLORIDE 106 mEq/L 98-110 Final CARBON DIOXIDE (CO2) 29 mEq/L 21-33 Final BUN (UREA NITROGEN) 28 mg/dL 7-25 H Final CREATININE 1.1 mg/dL 0.6-1.2 Final BUN/CREATININE RATIO 25 6-22 H Final GFR- 59 mL/min/1.73 m2 >60 L Final LPH-TZW-RIHUPDT 49 mL/min/1.73 m2 >60 L Final Stage of CKD eGFR (mL/min/1.73 square meters) Stage 1 >/= 90 or > 90 Stage 2 60 - 89 Stage 3 30 - 59 Stage 4 15 - 29 Stage 5 </= 14 or < 15 GFR is reliable for adults 17 to 69 years with stable kidney function. CALCIUM 8.0 mg/dL 8.4-10.2 L Final PROTEIN, TOTAL 4.8 g/dL 6.0-8.3 L Final ALBUMIN 2.5 g/dL 3.5-5.5 L Final A/G RATIO 1.1 1.0-2.3 Final ALKALINE PHOS 30 IU/L 34-136 L Final AST (SGOT) 10 IU/L 4-40 Final ALT (SGPT) 7 IU/L 4-55 Final BILIRUBIN, TOTAL 0.3 mg/dL 0.2-1.2 Final WBC 4.3 K/cmm 4.5-10.8 L Final RBC 3.15 M/cmm 3.90-5.40 L Final HEMOGLOBIN 9.9 g/dL 12.0-16.0 L Final Verified HEMATOCRIT 28.7 % 36.0-48.0 L Final MCV 90.9 fL 80.0-100.0 Final MCH 31.3 pg 26.0-35.0 Final MCHC 34.5 g/dL 31.0-36.5 Final RDW 14.3 % 11.0-16.0 Final PLATELET 150 K/cmm 150-450 Final MPV 9.3 fL 6.5-12.0 Final NEUTROPHILS 52.3 % 40.0-80.0 Final LYMPHS 37.0 % 13.0-48.0 Final MONOCYTES 6.4 % 2.0-12.0 Final EOS 3.8 % 0.0-8.0 Final BASO 0.5 % 0.0-2.0 Final NEUTS (ABSOLUTE) 2.30 K/uL 1.50-7.60 Final LYMPHS (ABSOLUTE) 1.60 K/uL 0.90-5.50 Final MONOCYTES (ABSOLUTE) 0.30 K/uL 0.15-1.10 Final EOS (ABSOLUTE) 0.20 K/uL 0.20-0.80 Final NUCLEATED RBC 0.2 NRBC/100 WBC <1.0 Final PROTIME-INR PROTIME 13.6 sec 9.8-12.2 H Final INR 1.3 0.9-1.2 H Final STANDARD ANTICOAGULANT: 2.0-3.0 INR AGGRESSIVE ANTICOAGULANT: 2.5-3.5 INR MAGNESIUM 1.5 mg/dL 1.9-2.7 L Final BP 120/57 Pulse 66 Temp 36 C (96.8 F) Resp 16 SpO2 97% Physical Exam: Physical Exam Vitals reviewed. Constitutional: Appearance: Normal appearance. HENT: Head: Normocephalic. Right Ear: External ear normal. Left Ear: External ear normal. Nose: Nose normal. Mouth/Throat: Mouth: Mucous membranes are moist. Pharynx: Oropharynx is clear. Eyes: Pupils: Pupils are equal, round, and reactive to light. Cardiovascular: Rate and Rhythm: Normal rate and regular rhythm. Pulses: Normal pulses. Pulmonary: Effort: Pulmonary effort is normal. Breath sounds: Normal breath sounds. Abdominal: General: Bowel sounds are normal. There is no distension. Palpations: Abdomen is soft. Tenderness: There is no abdominal tenderness. Musculoskeletal: General: Swelling present. Cervical back: Normal range of motion and neck supple. Right lower leg: Edema present. Left lower leg: Edema present. Skin: General: Skin is warm and dry. Neurological: General: No focal deficit present. Mental Status: She is alert and oriented to person, place, and time. Motor: Weakness present. Gait: Gait abnormal. Psychiatric: Mood and Affect: Mood normal. Behavior: Behavior normal. POC discussed with appropriate parties and nursing staff. Previous progress note was copied forward, updated where appropriate, and reflective of current medical decision making today,10/10/2024 This note was partially generated using echoecho voice recognition system, and there may be some incorrect words, spellings, and punctuation that were not noted in checking the note before saving. Electronically signed by Travis Patterson APRN.CLINICAL TRIALS MANAGER documented in this encounter [facility] 10-05-2024 Note HNO ID: [id number] Author: TRAVIS PATTERSON APRN.CNP Service: ? Author Type: Nurse Practitioner Type: Progress Notes Filed: 10/05/2024 16:20 Note Text: Connected Care Unit Progress Note Patient Name: Randolph Hunter Patient Facility: [facility] Admit Date 09/28/2024 Level of Care: Skilled SNF Attending: Dr Baljinder Torre Service Date: 10/05/2024 Code Status: Full Code Chief Complaint: Evaluation regarding debility and rehabilitation ASSESSMENT AND PLAN ASSESSMENT/PLAN: 1. Fall at home, initial encounter - ICD9: E888.9, E849.0, ICD10: W19.XXXA, Y92.009 (primary diagnosis) 2. Cerebral palsy, unspecified type (HCC) - ICD9: 343.9, ICD10: G80.9 3. Brachial neuritis or radiculitis - ICD9: 723.4, ICD10: M54.1 4. Acute pain of right shoulder - ICD9: 719.41, ICD10: M25.511 5. Left knee pain, unspecified chronicity - ICD9: 719.46, ICD10: M25.562 With complaints of pain Continue Salonpas patch, oxycodone, 6. Diabetic polyneuropathy associated with type 2 diabetes mellitus (HCC) - ICD9: 250.60, 357.2, ICD10: E11.42 7. Neuropathy - ICD9: 355.9, ICD10: G62.9 8. Type 2 diabetes, controlled, with neuropathy (HCC) - ICD9: 250.60, 357.2, ICD10: E11.40 Monitor blood glucose levels ACHS Continue gabapentin, metformin Monitor vital signs Monitor labs 9. Atherosclerosis of [place] coronary artery of [place] heart without angina pectoris - ICD9: 414.01, ICD10: I25.10 10. Other pulmonary embolism without acute cor pulmonale, unspecified chronicity (HCC) - ICD9: 415.19, ICD10: I26.99 Continue Tessalon Perles, albuterol sulfate, metoprolol, ramipril, nitroglycerin, Coumadin, Monitor vistal signs Monitor labs 11. Debility - ICD9: 799.3, ICD10: R53.81 Certify therapies Maintain high falls risk precautions - pt/staff verbalize understanding validated via teach back Monitor safety awareness Travis Patterson Appointments for Next 60 Days Date Time Provider Location Dept Phone 10/19/2024 9:30 AM MENDEL SHARMA [facility] [phone] 11/04/2024 11:00 AM [facility] [phone] HPI: (Per hospital discharge) Admission Information ADMIT DATE: 09/18/2024 DISCHARGE DATE: 09/28/2024 MY DOCTORS AND MEDICAL TEAM: My Main Hospital Doctor: Sage Loera MD Primary Care Provider: Raf Casey MD, MD My Medical Team Members: Treatment Team: Attending Provider: Sage Loera MD MY CONDITION AT DISCHARGE: Stable REASON I WAS IN THE HOSPITAL: Debility from cerebral palsy with acute left knee pain without fracture and inability to stand pivot necessitating going to prison facility for rehab SUMMARY OF WHAT HAPPENED WHILE I WAS IN THE HOSPITAL: Orthopedics agrees no surgical intervention now resume exercises when you get to the prison facility no ligamentous injury evident on CT scan. Follow-up with orthopedics only as needed if not improving 10/05/2024 10/05/2024 update Simran is sitting up in her wheelchair, she is alert and oriented x 3. She denies any shortness of breath, chest comfort or pain. She did request that her lidocaine patch be discontinued and be started on house muscle rub 4 times daily as needed, for her neck and knee. She not feel that the patch works. She also request that she has her prazosin 2 mg to be placed on nightly. She has a history of nightmares Her INR today was 1.8. she restarted back on 4 mg of Coumadin. INR will be checked on 418. With a CBC CMP. She does continue to work with therapy to gain her strength and endurance. She has no concerns. Staff has no concerns. PAST MEDICAL HISTORY Diagnosis Date CAD (coronary artery disease) Carotid artery stenosis Cerebral palsy (HCC) Chronic depressive personality disorder Diarrhea Dyslipidemia Edema bilat Hirsutism Hypertension Hypothyroid Insomnia Migraines Morbid obesity (HCC) Osteomyelitis of foot (HCC) Pulmonary embolism (HCC) Pulmonary embolism (HCC) 2011 SLE (systemic lupus erythematosus) (HCC) Type II or unspecified type diabetes mellitus without mention of complication, uncontrolled Unspecified asthma(493.90) Unspecified venous (peripheral) insufficiency SUBJECTIVE: Review of Systems Constitutional: Positive for activity change. Negative for unexpected weight change. HENT: Negative for congestion, dental problem, ear discharge, hearing loss and rhinorrhea. Eyes: Negative. Respiratory: Negative for apnea, cough and choking. Cardiovascular: Positive for leg swelling. Negative for palpitations. Gastrointestinal: Negative for abdominal distention, abdominal pain, constipation, nausea and rectal pain. Endocrine: Negative. Genitourinary: Negative for difficulty urinating, dyspareunia, flank pain, hematuria and menstrual problem. Musculoskeletal: Positive for gait problem and myalgias. Negative for back pain. Neurological: Positive for weakness. Medications: Medications (more content not included)... [facility] 10-05-2024 History of Present illness Narrative Images from the original note were not included. Connected Care Unit Progress Note Patient Name: Randolph Hunter Patient Facility: [facility] Admit Date 09/28/2024 Level of Care: Skilled SNF Attending: Dr Baljinder Torre Service Date: 10/05/2024 Code Status: Full Code Chief Complaint: Evaluation regarding debility and rehabilitation ASSESSMENT AND PLAN ASSESSMENT/PLAN: 1. Fall at home, initial encounter - ICD9: E888.9, E849.0, ICD10: W19.XXXA, Y92.009 (primary diagnosis) 2. Cerebral palsy, unspecified type (HCC) - ICD9: 343.9, ICD10: G80.9 3. Brachial neuritis or radiculitis - ICD9: 723.4, ICD10: M54.1 4. Acute pain of right shoulder - ICD9: 719.41, ICD10: M25.511 5. Left knee pain, unspecified chronicity - ICD9: 719.46, ICD10: M25.562 With complaints of pain Continue Salonpas patch, oxycodone, 6. Diabetic polyneuropathy associated with type 2 diabetes mellitus (HCC) - ICD9: 250.60, 357.2, ICD10: E11.42 7. Neuropathy - ICD9: 355.9, ICD10: G62.9 8. Type 2 diabetes, controlled, with neuropathy (HCC) - ICD9: 250.60, 357.2, ICD10: E11.40 Monitor blood glucose levels ACHS Continue gabapentin, metformin Monitor vital signs Monitor labs 9. Atherosclerosis of [place] coronary artery of [place] heart without angina pectoris - ICD9: 414.01, ICD10: I25.10 10. Other pulmonary embolism without acute cor pulmonale, unspecified chronicity (HCC) - ICD9: 415.19, ICD10: I26.99 Continue Tessalon Perles, albuterol sulfate, metoprolol, ramipril, nitroglycerin, Coumadin, Monitor vistal signs Monitor labs 11. Debility - ICD9: 799.3, ICD10: R53.81 Certify therapies Maintain high falls risk precautions - pt/staff verbalize understanding validated via teach back Monitor safety awareness Travis Patterson Appointments for Next 60 Days Date Time Provider Location Dept Phone 10/19/2024 9:30 AM MENDEL SHARMA [facility] [phone] 11/04/2024 11:00 AM [facility] [phone] HPI: (Per hospital discharge) Admission Information ADMIT DATE: 09/18/2024 DISCHARGE DATE: 09/28/2024 MY DOCTORS AND MEDICAL TEAM: My Main [facility] Doctor: Sage Loera MD Primary Care Provider: Raf Casey MD, MD My Medical Team Members: Treatment Team: Attending Provider: Sage Loera MD MY CONDITION AT DISCHARGE: Stable REASON I WAS IN THE HOSPITAL: Debility from cerebral palsy with acute left knee pain without fracture and inability to stand pivot necessitating going to prison facility for rehab SUMMARY OF WHAT HAPPENED WHILE I WAS IN THE HOSPITAL: Orthopedics agrees no surgical intervention now resume exercises when you get to the prison facility no ligamentous injury evident on CT scan. Follow-up with orthopedics only as needed if not improving 10/05/2024 10/05/2024 update Simran is sitting up in her wheelchair, she is alert and oriented x 3. She denies any shortness of breath, chest comfort or pain. She did request that her lidocaine patch be discontinued and be started on house muscle rub 4 times daily as needed, for her neck and knee. She not feel that the patch works. She also request that she has her prazosin 2 mg to be placed on nightly. She has a history of nightmares Her INR today was 1.8. she restarted back on 4 mg of Coumadin. INR will be checked on 418. With a CBC CMP. She does continue to work with therapy to gain her strength and endurance. She has no concerns. Staff has no concerns. PAST MEDICAL HISTORY Diagnosis Date CAD (coronary artery disease) Carotid artery stenosis Cerebral palsy (HCC) Chronic depressive personality disorder Diarrhea Dyslipidemia Edema bilat Hirsutism Hypertension Hypothyroid Insomnia Migraines Morbid obesity (HCC) Osteomyelitis of foot (HCC) Pulmonary embolism (HCC) Pulmonary embolism (HCC) 2011 SLE (systemic lupus erythematosus) (HCC) Type II or unspecified type diabetes mellitus without mention of complication, uncontrolled Unspecified asthma(493.90) Unspecified venous (peripheral) insufficiency SUBJECTIVE: Review of Systems Constitutional: Positive for activity change. Negative for unexpected weight change. HENT: Negative for congestion, dental problem, ear discharge, hearing loss and rhinorrhea. Eyes: Negative. Respiratory: Negative for apnea, cough and choking. Cardiovascular: Positive for leg swelling. Negative for palpitations. Gastrointestinal: Negative for abdominal distention, abdominal pain, constipation, nausea and rectal pain. Endocrine: Negative. Genitourinary: Negative for difficulty urinating, dyspareunia, flank pain, hematuria and menstrual problem. Musculoskeletal: Positive for gait problem and myalgias. Negative for back pain. Neurological: Positive for weakness. Medications: Medications listed in Epic during SNF admission may not be current. Refer to facility record. Patient records, current medications, most recent labs, family/social history (unchanged) Reviewed. Refer to facility records. OBJECTIVE: Labs/diagnostics: Latest Reference Range & Units 09/25/24 12:45 Sodium 136 - 144 mmol/L 134 (L) Potassium 3.7 - 5.1 mmol/L 4.4 Chloride 98 - 107 mmol/L 99 CO2 22 - 30 mmol/L 24 BUN 7 - 21 mg/dL 14 Creatinine 0.58 - 0.96 mg/dL 0.66 Glucose 74 - 99 mg/dL 202 (H) Protein, Total 6.3 - 8.0 g/dL 6.0 (L) Calcium 8.5 - 10.2 mg/dL 9.0 Magnesium 1.7 - 2.3 mg/dL 1.5 (L) Albumin 3.9 - 4.9 g/dL 3.0 (L) Bilirubin, Total 0.2 - 1.3 mg/dL 0.3 Alkaline Phosphatase 34 - 123 U/L 41 ALT 7 - 38 U/L 11 AST 13 - 35 U/L 21 Anion Gap 8 - 15 mmol/L 11 eGFR >=60 mL/min/1.73m 93 WBC 3.70 - 11.00 k/uL 10.28 RBC 3.90 - 5.20 m/uL 4.27 Hemoglobin 11.5 - 15.5 g/dL 13.1 Hematocrit 36.0 - 46.0 % 38.8 Platelet Count 150 - 400 k/uL 200 MCV 80.0 - 100.0 fL 90.9 MCH 26.0 - 34.0 pg 30.7 MCHC 30.5 - 36.0 g/dL 33.8 MPV 9.0 - 12.7 fL 10.2 RDW-CV 11.5 - 15.0 % 13.5 Absolute nRBC <0.01 k/uL <0.01 PT Sec 9.7 - 13.0 sec 41.3 (H) PT INR 0.9 - 1.3 4.2 (H) (L): Data is abnormally low (H): Data is abnormally high Vital Signs: BP 122/71 Pulse 64 Temp 36.6 C (97.8 F) Resp 19 SpO2 96% Physical Exam: Physical Exam Vitals reviewed. Constitutional: Appearance: Normal appearance. HENT: Head: Normocephalic. Right Ear: External ear normal. Left Ear: External ear normal. Nose: Nose normal. Mouth/Throat: Mouth: Mucous membranes are moist. Pharynx: Oropharynx is clear. Eyes: Pupils: Pupils are equal, round, and reactive to light. Cardiovascular: Rate and Rhythm: Normal rate and regular rhythm. Pulses: Normal pulses. Pulmonary: Effort: Pulmonary effort is normal. Breath sounds: Normal breath sounds. Abdominal: General: Bowel sounds are normal. There is no distension. Palpations: Abdomen is soft. Tenderness: There is no abdominal tenderness. Musculoskeletal: General: Swelling present. Cervical back: Normal range of motion and neck supple. Right lower leg: Edema present. Left lower leg: Edema present. Skin: General: Skin is warm and dry. Neurological: General: No focal deficit present. Mental Status: She is alert and oriented to person, place, and time. Motor: Weakness present. Gait: Gait abnormal. Psychiatric: Mood and Affect: Mood normal. Behavior: Behavior normal. POC discussed with appropriate parties and nursing staff. Previous progress note was copied forward, updated where appropriate, and reflective of current medical decision making today,10/05/2024 This note was partially generated using echoecho voice recognition system, and there may be some incorrect words, spellings, and punctuation that were not noted in checking the note before saving. Electronically signed by Travis Patterson APRN.CLINICAL TRIALS MANAGER documented in this encounter [facility] 09-30-2024 Note HNO ID: [id number] Author: TRAVIS PATTERSON APRN.JOHN Service: ? Author Type: Nurse Practitioner Type: Progress Notes Filed: 09/30/2024 13:49 Note Text: Connected Care Unit Progress Note Patient Name: Randolph Hunter Patient Facility: [facility] Admit Date 09/28/2024 Level of Care: Skilled SNF Attending: Dr Baljinder Torre Service Date: 09/30/2024 Code Status: Full Code Chief Complaint: Evaluation regarding debility and rehabilitation ASSESSMENT AND PLAN ASSESSMENT/PLAN: 1. Fall at home, initial encounter - ICD9: E888.9, E849.0, ICD10: W19.XXXA, Y92.009 (primary diagnosis) 2. Cerebral palsy, unspecified type (HCC) - ICD9: 343.9, ICD10: G80.9 3. Brachial neuritis or radiculitis - ICD9: 723.4, ICD10: M54.1 4. Acute pain of right shoulder - ICD9: 719.41, ICD10: M25.511 5. Left knee pain, unspecified chronicity - ICD9: 719.46, ICD10: M25.562 With complaints of pain Continue Salonpas patch, oxycodone, 6. Diabetic polyneuropathy associated with type 2 diabetes mellitus (HCC) - ICD9: 250.60, 357.2, ICD10: E11.42 7. Neuropathy - ICD9: 355.9, ICD10: G62.9 8. Type 2 diabetes, controlled, with neuropathy (HCC) - ICD9: 250.60, 357.2, ICD10: E11.40 Monitor blood glucose levels ACHS Continue gabapentin, metformin Monitor vital signs Monitor labs 9. Atherosclerosis of [place] coronary artery of [place] heart without angina pectoris - ICD9: 414.01, ICD10: I25.10 10. Other pulmonary embolism without acute cor pulmonale, unspecified chronicity (HCC) - ICD9: 415.19, ICD10: I26.99 Continue Tessalon Perles, albuterol sulfate, metoprolol, ramipril, nitroglycerin, Coumadin, Monitor vistal signs Monitor labs 11. Debility - ICD9: 799.3, ICD10: R53.81 Certify therapies Maintain high falls risk precautions - pt/staff verbalize understanding validated via teach back Monitor safety awareness Travis Felicitas Appointments for Next 60 Days Date Time Provider Location Dept Phone [phone]/19/[facility]24 9:30 AM MENDEL SHARMA [place] [employer] [phone] 11/04/2024 11:00 AM GILMER COTTON [facility] [phone] HPI: (Per hospital discharge) Admission Information ADMIT DATE: 09/18/2024 DISCHARGE DATE: 09/28/2024 MY DOCTORS AND MEDICAL TEAM: [facility] Main [facility] Doctor: Sage Loera MD Primary Care Provider: Raf Casey MD, MD My Medical Team Members: Treatment Team: Attending Provider: Sage Loera MD MY CONDITION AT DISCHARGE: Stable REASON I WAS IN THE HOSPITAL: Debility from cerebral palsy with acute left knee pain without fracture and inability to stand pivot necessitating going to prison facility for rehab SUMMARY OF WHAT HAPPENED WHILE I WAS IN THE HOSPITAL: Orthopedics agrees no surgical intervention now resume exercises when you get to the prison facility no ligamentous injury evident on CT scan. Follow-up with orthopedics only as needed if not improving 09/30/2024 update Randolph is resting in bed, she is alert, x 3. She denies any shortness of breath, chest comfort or pain. She does continue to have complaints of right-sided pain. She does report report that she can only get in and out of bed on her right side. Her left side is too weak due to her cerebral l palsy. She will continue to work with therapy to get her strength and endurance. Chart, labs, medications reviewed. PAST MEDICAL HISTORY Diagnosis Date CAD (coronary artery disease) Carotid artery stenosis Cerebral palsy (HCC) Chronic depressive personality disorder Diarrhea Dyslipidemia Edema bilat Hirsutism Hypertension Hypothyroid Insomnia Migraines Morbid obesity (HCC) Osteomyelitis of foot (HCC) Pulmonary embolism (HCC) Pulmonary embolism (HCC) 2011 SLE (systemic lupus erythematosus) (HCC) Type II or unspecified type diabetes mellitus without mention of complication, uncontrolled Unspecified asthma(493.90) Unspecified venous (peripheral) insufficiency SUBJECTIVE: Review of Systems Constitutional: Positive for activity change. Negative for unexpected weight change. HENT: Negative for congestion, dental problem, ear discharge, hearing loss and rhinorrhea. Eyes: Negative. Respiratory: Negative for apnea, cough and choking. Cardiovascular: Positive for leg swelling. Negative for palpitations. Gastrointestinal: Negative for abdominal distention, abdominal pain, constipation, nausea and rectal pain. Endocrine: Negative. Genitourinary: Negative for difficulty urinating, dyspareunia, flank pain, hematuria and menstrual problem. Musculoskeletal: Positive for gait problem and myalgias. Negative for back pain. Neurological: Positive for weakness. Medications: Medications listed in Epic during SNF admission may not be current. Refer to facility record. Patient records, current medications, most recent labs, family/social history (unchanged) Revi (more content not included)... [facility] 09-30-2024 History of Present illness Narrative Images from the original note were not included. Connected Care Unit Progress Note Patient Name: Randolph Hunter Patient Facility: [facility] Admit Date 09/28/2024 Level of Care: Skilled SNF Attending: Dr Baljinder Torre Service Date: 09/30/2024 Code Status: Full Code Chief Complaint: Evaluation regarding debility and rehabilitation ASSESSMENT AND PLAN ASSESSMENT/PLAN: 1. Fall at home, initial encounter - ICD9: E888.9, E849.0, ICD10: W19.XXXA, Y92.009 (primary diagnosis) 2. Cerebral palsy, unspecified type (HCC) - ICD9: 343.9, ICD10: G80.9 3. Brachial neuritis or radiculitis - ICD9: 723.4, ICD10: M54.1 4. Acute pain of right shoulder - ICD9: 719.41, ICD10: M25.511 5. Left knee pain, unspecified chronicity - ICD9: 719.46, ICD10: M25.562 With complaints of pain Continue Salonpas patch, oxycodone, 6. Diabetic polyneuropathy associated with type 2 diabetes mellitus (HCC) - ICD9: 250.60, 357.2, ICD10: E11.42 7. Neuropathy - ICD9: 355.9, ICD10: G62.9 8. Type 2 diabetes, controlled, with neuropathy (HCC) - ICD9: 250.60, 357.2, ICD10: E11.40 Monitor blood glucose levels ACHS Continue gabapentin, metformin Monitor vital signs Monitor labs 9. Atherosclerosis of [place] coronary artery of [place] heart without angina pectoris - ICD9: 414.01, ICD10: I25.10 10. Other pulmonary embolism without acute cor pulmonale, unspecified chronicity (HCC) - ICD9: 415.19, ICD10: I26.99 Continue Tessalon Perles, albuterol sulfate, metoprolol, ramipril, nitroglycerin, Coumadin, Monitor vistal signs Monitor labs 11. Debility - ICD9: 799.3, ICD10: R53.81 Certify therapies Maintain high falls risk precautions - pt/staff verbalize understanding validated via teach back Monitor safety awareness Travis Patterson Appointments for Next 60 Days Date Time Provider Location Dept Phone 10/04/2024 11:00 AM [facility] [phone] 10/19/2024 9:30 AM MENDEL SHARMA [facility] [phone] 11/04/2024 11:00 AM [facility] [phone] HPI: (Per hospital discharge) Admission Information ADMIT DATE: 09/18/2024 DISCHARGE DATE: 09/28/2024 MY DOCTORS AND MEDICAL TEAM: My Main Hospital Doctor: Sage Loera MD Primary Care Provider: Raf Casey MD, MD My Medical Team Members: Treatment Team: Attending Provider: Sage Loera MD MY CONDITION AT DISCHARGE: Stable REASON I WAS IN THE HOSPITAL: Debility from cerebral palsy with acute left knee pain without fracture and inability to stand pivot necessitating going to prison facility for rehab SUMMARY OF WHAT HAPPENED WHILE I WAS IN THE HOSPITAL: Orthopedics agrees no surgical intervention now resume exercises when you get to the prison facility no ligamentous injury evident on CT scan. Follow-up with orthopedics only as needed if not improving 09/30/2024 update Randolph is resting in bed, she is alert, x 3. She denies any shortness of breath, chest comfort or pain. She does continue to have complaints of right-sided pain. She does report report that she can only get in and out of bed on her right side. Her left side is too weak due to her cerebral l palsy. She will continue to work with therapy to get her strength and endurance. Chart, labs, medications reviewed. PAST MEDICAL HISTORY Diagnosis Date CAD (coronary artery disease) Carotid artery stenosis Cerebral palsy (HCC) Chronic depressive personality disorder Diarrhea Dyslipidemia Edema bilat Hirsutism Hypertension Hypothyroid Insomnia Migraines Morbid obesity (HCC) Osteomyelitis of foot (HCC) Pulmonary embolism (HCC) Pulmonary embolism (HCC) 2011 SLE (systemic lupus erythematosus) (HCC) Type II or unspecified type diabetes mellitus without mention of complication, uncontrolled Unspecified asthma(493.90) Unspecified venous (peripheral) insufficiency SUBJECTIVE: Review of Systems Constitutional: Positive for activity change. Negative for unexpected weight change. HENT: Negative for congestion, dental problem, ear discharge, hearing loss and rhinorrhea. Eyes: Negative. Respiratory: Negative for apnea, cough and choking. Cardiovascular: Positive for leg swelling. Negative for palpitations. Gastrointestinal: Negative for abdominal distention, abdominal pain, constipation, nausea and rectal pain. Endocrine: Negative. Genitourinary: Negative for difficulty urinating, dyspareunia, flank pain, hematuria and menstrual problem. Musculoskeletal: Positive for gait problem and myalgias. Negative for back pain. Neurological: Positive for weakness. Medications: Medications listed in Epic during SNF admission may not be current. Refer to facility record. Patient records, current medications, most recent labs, family/social history (unchanged) Reviewed. Refer to facility records. OBJECTIVE: Labs/diagnostics: Latest Reference Range & Units 09/25/24 12:45 Sodium 136 - 144 mmol/L 134 (L) Potassium 3.7 - 5.1 mmol/L 4.4 Chloride 98 - 107 mmol/L 99 CO2 22 - 30 mmol/L 24 BUN 7 - 21 mg/dL 14 Creatinine 0.58 - 0.96 mg/dL 0.66 Glucose 74 - 99 mg/dL 202 (H) Protein, Total 6.3 - 8.0 g/dL 6.0 (L) Calcium 8.5 - 10.2 mg/dL 9.0 Magnesium 1.7 - 2.3 mg/dL 1.5 (L) Albumin 3.9 - 4.9 g/dL 3.0 (L) Bilirubin, Total 0.2 - 1.3 mg/dL 0.3 Alkaline Phosphatase 34 - 123 U/L 41 ALT 7 - 38 U/L 11 AST 13 - 35 U/L 21 Anion Gap 8 - 15 mmol/L 11 eGFR >=60 mL/min/1.73m 93 WBC 3.70 - 11.00 k/uL 10.28 RBC 3.90 - 5.20 m/uL 4.27 Hemoglobin 11.5 - 15.5 g/dL 13.1 Hematocrit 36.0 - 46.0 % 38.8 Platelet Count 150 - 400 k/uL 200 MCV 80.0 - 100.0 fL 90.9 MCH 26.0 - 34.0 pg 30.7 MCHC 30.5 - 36.0 g/dL 33.8 MPV 9.0 - 12.7 fL 10.2 RDW-CV 11.5 - 15.0 % 13.5 Absolute nRBC <0.01 k/uL <0.01 PT Sec 9.7 - 13.0 sec 41.3 (H) PT INR 0.9 - 1.3 4.2 (H) (L): Data is abnormally low (H): Data is abnormally high Vital Signs: BP 124/64 Pulse 69 Temp 36.3 C (97.3 F) Resp 18 SpO2 97% Physical Exam: Physical Exam Vitals reviewed. Constitutional: Appearance: Normal appearance. HENT: Head: Normocephalic. Right Ear: External ear normal. Left Ear: External ear normal. Nose: Nose normal. Mouth/Throat: Mouth: Mucous membranes are moist. Pharynx: Oropharynx is clear. Eyes: Pupils: Pupils are equal, round, and reactive to light. Cardiovascular: Rate and Rhythm: Normal rate and regular rhythm. Pulses: Normal pulses. Pulmonary: Effort: Pulmonary effort is normal. Breath sounds: Normal breath sounds. Abdominal: General: Bowel sounds are normal. There is no distension. Palpations: Abdomen is soft. Tenderness: There is no abdominal tenderness. Musculoskeletal: General: Swelling present. Cervical back: Normal range of motion and neck supple. Right lower leg: Edema present. Left lower leg: Edema present. Skin: General: Skin is warm and dry. Neurological: General: No focal deficit present. Mental Status: She is alert and oriented to person, place, and time. Motor: Weakness present. Gait: Gait abnormal. Psychiatric: Mood and Affect: Mood normal. Behavior: Behavior normal. POC discussed with appropriate parties and nursing staff. I spent a total of 30 minutes on the date of the service which included preparing to see the patient, [id number] patient care, completing clinical documentation, obtaining and/or reviewing separately obtained history, performing a medically appropriate examination, counseling and educating the patient/family/caregiver, ordering medications, tests, or procedures, communicating with other HCPs (not separately reported), independently interpreting results (not separately reported), communicating results to the patient/family/caregiver, and care coordination (not separately reported). It This note was partially generated using echoecho voice recognition system, and there may be some incorrect words, spellings, and punctuation that were not noted in checking the note before saving. Electronically signed by Travis Patterson APRN.CLINICAL TRIALS MANAGER documented in this encounter [facility] 09-28-2024 Note HNO ID: [id number] Author: KATERIN RICH RN Service: Care Management Author Type: Registered Nurse Type: Care Mgt Progress Note Filed: 09/28/2024 15:06 Note Text: CARE MANAGEMENT DISCHARGE NOTE SERVICE DATE: September 28, 2024 SERVICE TIME: 3:04 PM Admission Date: 09/18/2024 LOS: 0 days Discharge Arrangement Discharge Arrangement: Custodial Facility Was an expedited discharge program used?: No Services Arranged Provider Name: [facility] Caregiver Assessment Caregiver is ready, willing and able to meet the patient's needs as recommended by the inter-professional team: Yes Name of Caregiver: [facility] Transportation Arrangements Transportation Arrangements: Ambulance Transportation Agency and Phone #:: [facility] [phone] Date of Trip: 09/28/24 Time of Trip: 1630 Type of Service: BLS Non-emergency Is Patient Medicaid Pending?: No Was transportation financial coverage discussed with family?: Patient Data Operations Manager Location: [place] Destination: [facility] Financial Care Management Responsibility: None Handoff Communication: Handoff to: Primary Care Physician Primary Care Physician Name/Phone: Raf Casey MD - [phone] Additional Information: Orders received for patient to discharge to SNF. [facility] is able to accept patient today. Precert approval received. Patient agreeable to discharge plan. Ambulance transport via [facility] at 1630. Envelope prepared. Bedside RN updated. SIGNATURE: Katerin Rich RN PATIENT NAME: Randolph Hunter DATE: September 28, 2024 TIME: 3:03 PM [facility] 09-28-2024 Note HNO ID: [id number] Author: KATERIN RICH RN Service: Care Management Author Type: Registered Nurse Type: Care Mgt Progress Note Filed: 09/28/2024 11:21 Note Text: CARE MANAGEMENT PROGRESS NOTE SERVICE DATE: 09/28/2024 SERVICE TIME: 10:07 AM LOS: 0 days Needs Prior to Discharge: To Be Determined EMR reviewed. CM called and left VM for Ping Ramsey from the [facility] ([phone]) in regards to determination of PASRR. Awaiting return call. CM will follow. 11:00 AM Left VM for [facility] in regards to determination of PASRR. Awaiting return call. Per [employer] website noted status is completed. CM will follow. 11:21 AM SNF reviewed results in [employer] website and are able to accept patient today. CM will follow. SIGNATURE: Katerin Rich RN PATIENT NAME: Randolph Hunter DATE: September 28, 2024 TIME: 10:07 AM [facility] 09-27-2024 Note HNO ID: [id number] Author: SAGE LOERA MD Service: Hospital Medicine Author Type: Physician Type: Progress Notes Filed: 09/27/2024 18:30 Note Text: DEPARTMENT OF HOSPITAL MEDICINE PROGRESS NOTE SERVICE DATE: 09/27/2024 SERVICE TIME: 5:44 PM Hospital Medicine/Primary Attending: Sage Loera MD NIGHT AND WEEKEND COVERAGE: [employer] COVERAGE: Nights: [phone], please page [place] [facility] Night coverage pager [phone]. Probable discharge: Disposition: [facility] Consultants: PROCEDURES: NONE CODE STATUS: Full code ACCEPTS BLOOD PRODUCTS: YES : ASSESSMENT/PLAN Reason for Admission: Fall in patient with cerebral palsy who being unable to bear weight to transfer will need prison home placement Anticoagulation: Prior to admission: Warfarin Current: Warfarin Smoking history: Never Diagnostic tests reviewed for today's visit: Most recent labs INTERVAL EVENTS: Randolph Hunter is a 74 year old female presented with past medical history of asthma, CAD, carotid stenosis, cerebral falsely high functioning, depression, hypertension, hypothyroidism, migraine, SLE with lupus anticoagulant disorder, history of PE on Coumadin, presented to hospital after a fall, patient was trying to transfer from her lift chair to regular wheelchair, her clothing got caught and fell. In ER she was afebrile, vital signs stable. CBC, BMP unremarkable. INR 2.3. Left knee x-ray, no fracture. Left knee CT, small joint effusion. Left ankle x-ray, no fracture, diffuse swelling of lower extremity. Left hip and pelvic x-ray no fracture. Patient admitted for left knee and left ankle pain, unable to put weight on left leg, admitted for PT, OT evaluation, need for placement. Patient refused magnesium today because the amount of stool she passed with 1 dose of mag oxide however she had been constipated for some time and will take 1 dose tomorrow and I will check her magnesium level . That being said she has not had labs in a few days and repeating the other labs and getting daily INR. INR is 2.8 => 2.5 mg warfarin ordered Recent Labs 09/27/24 0509 09/26/24 0522 09/25/24 1245 INR 2.8* 4.1* 4.2* On oral magnesium oxide will check magnesium level tomorrow Principal Problem: Fall (POA: Yes) Knee pain (POA: Yes) CP (cerebral palsy) (HCC) (POA: Yes) --Presented to [place] ED for evaluation of left knee pain after a fall at home, non-ambulatory at baseline secondary to CP but concerns for current facility ability to meet her needs --XR L KNEE/HIP/ANKLE negative for acute osseous injury --CT L KNEE negative for fracture, small joint effusion noted --Pain control as needed. On Lidoderm patch, Tylenol. Added oxycodone. 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 Type 2 diabetes, controlled, with neuropathy (HCC) (POA: Yes) --OP: Metformin --IP: SSI #1 AC/qHS -- Home metformin resumed CKD (chronic kidney disease) (POA: Yes) -- Renal function stable s Patient Active Hospital Problem List: Fall at home, initial encounter Date Noted: 09/19/2024 Lupus anticoagulant disorder (HCC) Date Noted: 05/04/2023 Pulmonary embolism (HCC) Date Noted: 09/01/2011 Type 2 diabetes, controlled, with neuropathy (HCC) Date Noted: Acquired hypothyroidism Date Noted: 04/10/2005 Obesity, Class II, BMI 35-39.9 Date Noted: 09/19/2024 SLE (systemic lupus erythematosus) (HCC) Date Noted: 08/02/2010 Knee pain Date Noted: 05/04/2023 CKD (chronic kidney disease) Date Noted: 05/04/2023 Depression, recurrent Date Noted: 10/17/2009 CP (cerebral palsy) (HCC) Date Noted: 03/29/2007 Hypomagnesemia Date Noted: 09/25/2024 Fall Date Noted: 09/26/2024 HISTORY HOSPITAL COURSE: Randolph Hunter is a 74 year old female presented with past medical history of Asthma, CAD, Cartoid Stenosis, Cerebral Palsy, Depression, Hyperlipidemia, Hypertension, Hypothyroidism, Migraines, Obesity, SLE with Lupus Anticoagulant Disorder, and PE on Coumadin who presents today for evaluation of left knee pain after a fall. The patient tells me that yesterday morning she was trying to transfer from her lift chair to her regular wheelchair with help from her . She noticed that her clothing was caught on her lift chair and she was unable to transfer appropriately and her was unable to help her. She told him to let her down to the ground but didn't realize her left leg was also caught on the lift chair. She tells me that her left leg and knee "twisted" on her way to the ground and she had pain afterwards. She is non-ambulatory at baseline due to history of CP but was concerned because of the pain to the left knee as well as concern for her current facility to care for her needs so she presented to the ED fo (more content not included)... [facility] 09-27-2024 Note HNO ID: [id number] Author: SHERYL HUITRON, NAWAF Service: Care Management Author Type: Registered Nurse Type: Care Mgt Progress Note Filed: 09/27/2024 14:00 Note Text: CARE MANAGEMENT PROGRESS NOTE SERVICE DATE: 09/27/2024 SERVICE TIME: 1:50 PM LOS: 0 days HENS.[place] checked and no determination noted on PASRR at this time. NAWAF LOPEZ called Ping Ramsey from the [facility]. She confirms she completed bedside visit yesterday she checked and states she has not received any updates at this time. NAWAF LOPEZ provided direct contact and [facility] for her call with update. [facility] confirmed that insurance authorization/precert was obtained and valid until 09/29/24. SNF: [facility] updated in [facility] Transitions. Discharge Transportation: Medical Transport envelope on Chart. NAWAF LOPEZ updated patient. CM dept to follow. SIGNATURE: Sheryl Huitron RN PATIENT NAME: Randolph Hunter DATE: September 27, 2024 TIME: 1:50 PM [facility] 09-26-2024 Note HNO ID: [id number] Author: SAGE LOERA MD Service: Hospital Medicine Author Type: Physician Type: Progress Notes Filed: 09/26/2024 14:40 Note Text: DEPARTMENT OF HOSPITAL MEDICINE PROGRESS NOTE SERVICE DATE: 09/26/2024 SERVICE TIME: 1:37 PM Hospital Medicine/Primary Attending: Sage Loera MD NIGHT AND WEEKEND COVERAGE: [employer] COVERAGE: Nights: [phone], please page [facility] Night coverage pager [phone]. Probable discharge: Disposition: [facility]-prison facility Consultants: PROCEDURES: NONE CODE STATUS: Full code ACCEPTS BLOOD PRODUCTS: YES : ASSESSMENT/PLAN Reason for Admission: Fall in patient with cerebral palsy who being unable to bear weight to transfer will need prison home placement Anticoagulation: Prior to admission: Warfarin Current: Warfarin Smoking history: Never Diagnostic tests reviewed for today's visit: Most recent labs INTERVAL EVENTS: Randolph Hunter is a 74 year old female presented with past medical history of asthma, CAD, carotid stenosis, cerebral falsely high functioning, depression, hypertension, hypothyroidism, migraine, SLE with lupus anticoagulant disorder, history of PE on Coumadin, presented to hospital after a fall, patient was trying to transfer from her lift chair to regular wheelchair, her clothing got caught and fell. In ER she was afebrile, vital signs stable. CBC, BMP unremarkable. INR 2.3. Left knee x-ray, no fracture. Left knee CT, small joint effusion. Left ankle x-ray, no fracture, diffuse swelling of lower extremity. Left hip and pelvic x-ray no fracture. Patient admitted for left knee and left ankle pain, unable to put weight on left leg, admitted for PT, OT evaluation, need for placement. With the IV and oral magnesium patient was moved her bowels and is no longer constipated. She has had multiple bowel movements. . That being said she has not had labs in a few days and repeating the other labs and getting daily INR. INR is 4.2 will hold warfarin Hypomagnesemic => 2 g magnesium IV follow-up tomorrow for oral replacement Principal Problem: Fall (POA: Yes) Knee pain (POA: Yes) CP (cerebral palsy) (HCC) (POA: Yes) --Presented to [facility] for evaluation of left knee pain after a fall at home, non-ambulatory at baseline secondary to CP but concerns for current facility ability to meet her needs --XR L KNEE/HIP/ANKLE negative for acute osseous injury --CT L KNEE negative for fracture, small joint effusion noted --Pain control as needed. On Lidoderm patch, Tylenol. Added oxycodone. 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 Type 2 diabetes, controlled, with neuropathy (HCC) (POA: Yes) --OP: Metformin --IP: SSI #1 AC/qHS -- Home metformin resumed CKD (chronic kidney disease) (POA: Yes) -- Renal function stable s Patient Active Hospital Problem List: Fall at home, initial encounter Date Noted: 09/19/2024 Lupus anticoagulant disorder (HCC) Date Noted: 05/04/2023 Pulmonary embolism (HCC) Date Noted: 09/01/2011 Type 2 diabetes, controlled, with neuropathy ([facility]) Date Noted: Acquired hypothyroidism Date Noted: 04/10/2005 Obesity, Class II, BMI 35-39.9 Date Noted: 09/19/2024 SLE (systemic lupus erythematosus) ([facility]) Date Noted: 08/02/2010 Knee pain Date Noted: 05/04/2023 CKD (chronic kidney disease) Date Noted: 05/04/2023 Depression, recurrent Date Noted: 10/17/2009 CP (cerebral palsy) ([facility]) Date Noted: 03/29/2007 Hypomagnesemia Date Noted: 09/25/2024 HISTORY HOSPITAL COURSE: Randolph Hunter is a 74 year old female presented with past medical history of Asthma, CAD, Cartoid Stenosis, Cerebral Palsy, Depression, Hyperlipidemia, Hypertension, Hypothyroidism, Migraines, Obesity, SLE with Lupus Anticoagulant Disorder, and PE on Coumadin who presents today for evaluation of left knee pain after a fall. The patient tells me that yesterday morning she was trying to transfer from her lift chair to her regular wheelchair with help from her . She noticed that her clothing was caught on her lift chair and she was unable to transfer appropriately and her was unable to help her. She told him to let her down to the ground but didn't realize her left leg was also caught on the lift chair. She tells me that her left leg and knee "twisted" on her way to the ground and she had pain afterwards. She is non-ambulatory at baseline due to history of CP but was concerned because of the pain to the left knee as well as concern for her current facility to care for her needs so she presented to the ED for further evaluation and possible placement needs. No fever, chills, TENORIO, visual changes, URI symptoms, chest pain, palpitations, SOB, cough, abdominal pain, N/V/D, urinary symptoms, skin (more content not included)... [facility] 09-26-2024 Note HNO ID: [id number] Author: SHERYL HUITRON, RN Service: Care Management Author Type: Registered Nurse Type: Care Mgt Progress Note Filed: 09/26/2024 15:07 Note Text: CARE MANAGEMENT PROGRESS NOTE SERVICE DATE: 09/26/2024 SERVICE TIME: 9:41 AM LOS: 0 days 09/18/24 Admission Hospital Consults: PT. OT. O2: room air Diet: regular + supplements 09/22/24 PT recommended: SNF 09/22/24 OT recommended: SNF Discharge Plan: Custodial Facility SNF: [facility] - Able to Accept Precert was obtained and valid 09/23-09/25. Needs Precert for SNF. PT AND OT messaged to request updated evaluations today. [facility] updated via secure message to Puja OLIVAREZ [facility] site checked - No updates on determination. NAWAF LOPEZ called and left voice message for Ping Ramsey [phone] [facility]. Service and Support Administration request call back with update on determination. 09/26/24 9:38 AM NAWAF LOPEZ attempted another call to Ping Ramsey-No Answer/Voice Mail Box - no new message left at this time. Needs Prior to Discharge: To Be Determined, OT/PT Evaluation, Insurance Authorization, Precertification, Discharge Transportation ([facility] Level II Reveiw - Determination.) NAWAF LOPEZ met with patient at bedside to update her on discharge planning. JESSICA Dept to Follow. 09/26/24 12:50PM NAWAF LOPEZ called Ping Ramsey from the [facility]. She informs CM that they can not see the review in there system. 09/26/24 1:00 PM NAWAF LOPEZ called and spoke with Ravi Multani [phone] [facility] He informs CM that review needs to go to the [facility] and they should be able to see the referral. NAWAF LOPEZ called Ping Ramsey back to inform her. She states she still is unable to see and states if she not receive it by end of day today she will reach out to Ravi Multani tomorrow. JESSICA Dept to follow. 09/26/24 2:08 PM Ping Ramsey from [facility] called CM to update her that she will be completing bedside visit today between 300PM and 400PM. [facility] tasked to start insurance authorization/precert. Dept to follow. SIGNATURE: Sheryl Huitron RN PATIENT NAME: Randolph Hunter DATE: September 26, 2024 TIME: 9:41 AM [facility] 09-25-2024 Note HNO ID: [id number] Author: SAGE LOERA MD Service: Hospital Medicine Author Type: Physician Type: Progress Notes Filed: 09/25/2024 16:17 Note Text: DEPARTMENT OF HOSPITAL MEDICINE PROGRESS NOTE SERVICE DATE: 09/25/2024 SERVICE TIME: 12:48 PM Hospital Medicine/Primary Attending: Sage Loera MD NIGHT AND WEEKEND COVERAGE: [employer] COVERAGE: Nights: [phone], please page [facility] Night coverage pager [phone]. Probable discharge: Disposition: [facility]-prison facility Consultants: PROCEDURES: NONE CODE STATUS: Full code ACCEPTS BLOOD PRODUCTS: YES : ASSESSMENT/PLAN Reason for Admission: Fall in patient with cerebral palsy who being unable to bear weight to transfer will need prison home placement Anticoagulation: Prior to admission: Warfarin Current: Warfarin Smoking history: Never Diagnostic tests reviewed for today's visit: Most recent labs INTERVAL EVENTS: Randolph Hunter is a 74 year old female presented with past medical history of asthma, CAD, carotid stenosis, cerebral falsely high functioning, depression, hypertension, hypothyroidism, migraine, SLE with lupus anticoagulant disorder, history of PE on Coumadin, presented to hospital after a fall, patient was trying to transfer from her lift chair to regular wheelchair, her clothing got caught and fell. In ER she was afebrile, vital signs stable. CBC, BMP unremarkable. INR 2.3. Left knee x-ray, no fracture. Left knee CT, small joint effusion. Left ankle x-ray, no fracture, diffuse swelling of lower extremity. Left hip and pelvic x-ray no fracture. Patient admitted for left knee and left ankle pain, unable to put weight on left leg, admitted for PT, OT evaluation, need for placement. Patient was constipated finally passed hard stool and now getting soft stool that was above that. With her cerebral palsy she has episodes like this frequently as no signs or symptoms of infection . That being said she has not had labs in a few days and repeating the other labs and getting daily INR. INR is 4.2 will hold warfarin Hypomagnesemic => 2 g magnesium IV follow-up tomorrow for oral replacement Principal Problem: Fall (POA: Yes) Knee pain (POA: Yes) CP (cerebral palsy) (HCC) (POA: Yes) --Presented to [facility] for evaluation of left knee pain after a fall at home, non-ambulatory at baseline secondary to CP but concerns for current facility ability to meet her needs --XR L KNEE/HIP/ANKLE negative for acute osseous injury --CT L KNEE negative for fracture, small joint effusion noted --Pain control as needed. On Lidoderm patch, Tylenol. Added oxycodone. 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 Type 2 diabetes, controlled, with neuropathy (HCC) (POA: Yes) --OP: Metformin --IP: SSI #1 AC/qHS -- Home metformin resumed CKD (chronic kidney disease) (POA: Yes) -- Renal function stable s Patient Active Hospital Problem List: Fall Date Noted: 05/04/2023 Type 2 diabetes, controlled, with neuropathy (HCC) Date Noted: Acquired hypothyroidism Date Noted: 04/10/2005 CP (cerebral palsy) (HCC) Date Noted: 03/29/2007 Depression, recurrent Date Noted: 10/17/2009 SLE (systemic lupus erythematosus) (HCC) Date Noted: 08/02/2010 Pulmonary embolism (HCC) Date Noted: 09/01/2011 Lupus anticoagulant disorder (HCC) Date Noted: 05/04/2023 CKD (chronic kidney disease) Date Noted: 05/04/2023 Knee pain Date Noted: 05/04/2023 Fall at home, initial encounter Date Noted: 09/19/2024 Obesity, Class II, BMI 35-39.9 Date Noted: 09/19/2024 HISTORY HOSPITAL COURSE: Randolph Hunter is a 74 year old female presented with past medical history of Asthma, CAD, Cartoid Stenosis, Cerebral Palsy, Depression, Hyperlipidemia, Hypertension, Hypothyroidism, Migraines, Obesity, SLE with Lupus Anticoagulant Disorder, and PE on Coumadin who presents today for evaluation of left knee pain after a fall. The patient tells me that yesterday morning she was trying to transfer from her lift chair to her regular wheelchair with help from her . She noticed that her clothing was caught on her lift chair and she was unable to transfer appropriately and her was unable to help her. She told him to let her down to the ground but didn't realize her left leg was also caught on the lift chair. She tells me that her left leg and knee "twisted" on her way to the ground and she had pain afterwards. She is non-ambulatory at baseline due to history of CP but was concerned because of the pain to the left knee as well as concern for her current facility to care for her needs so she presented to the ED for further evaluation and possible placement needs. No fever, chills, TENORIO, visual changes, URI symptoms, chest pain, palpitati (more content not included)... [facility] 09-24-2024 Note HNO ID: [id number] Author: SAGE LOERA MD Service: Hospital Medicine Author Type: Physician Type: Progress Notes Filed: 09/25/2024 12:46 Note Text: DEPARTMENT OF HOSPITAL MEDICINE PROGRESS NOTE SERVICE DATE: 09/25/2024 SERVICE TIME: 12:10 PM Hospital Medicine/Primary Attending: Sage Loera MD NIGHT AND WEEKEND COVERAGE: [place] COVERAGE: Nights: [phone], please page [facility] Night coverage pager [phone]. Probable discharge: Disposition: [facility]-prison facility Consultants: PROCEDURES: NONE CODE STATUS: Full code ACCEPTS BLOOD PRODUCTS: YES : ASSESSMENT/PLAN Reason for Admission: Fall in patient with cerebral palsy who being unable to bear weight to transfer will need prison home placement Anticoagulation: Prior to admission: Warfarin Current: Warfarin Smoking history: Never Diagnostic tests reviewed for today's visit: Most recent labs Most recent imaging INTERVAL EVENTS: Randolph Hunter is a 74 year old female presented with past medical history of asthma, CAD, carotid stenosis, cerebral falsely high functioning, depression, hypertension, hypothyroidism, migraine, SLE with lupus anticoagulant disorder, history of PE on Coumadin, presented to hospital after a fall, patient was trying to transfer from her lift chair to regular wheelchair, her clothing got caught and fell. In ER she was afebrile, vital signs stable. CBC, BMP unremarkable. INR 2.3. Left knee x-ray, no fracture. Left knee CT, small joint effusion. Left ankle x-ray, no fracture, diffuse swelling of lower extremity. Left hip and pelvic x-ray no fracture. Patient admitted for left knee and left ankle pain, unable to put weight on left leg, admitted for PT, OT evaluation, need for placement. Principal Problem: Fall (POA: Yes) Knee pain (POA: Yes) CP (cerebral palsy) (HCC) (POA: Yes) --Presented to [facility] for evaluation of left knee pain after a fall at home, non-ambulatory at baseline secondary to CP but concerns for current facility ability to meet her needs --XR L KNEE/HIP/ANKLE negative for acute osseous injury --CT L KNEE negative for fracture, small joint effusion noted --Pain control as needed. On Lidoderm patch, Tylenol. Added oxycodone. 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 Type 2 diabetes, controlled, with neuropathy (HCC) (POA: Yes) --OP: Metformin --IP: SSI #1 AC/qHS -- Home metformin resumed CKD (chronic kidney disease) (POA: Yes) -- Renal function stable s Patient Active Hospital Problem List: Fall Date Noted: 05/04/2023 Type 2 diabetes, controlled, with neuropathy (HCC) Date Noted: Acquired hypothyroidism Date Noted: 04/10/2005 CP (cerebral palsy) (HCC) Date Noted: 03/29/2007 Depression, recurrent Date Noted: 10/17/2009 SLE (systemic lupus erythematosus) (HCC) Date Noted: 08/02/2010 Pulmonary embolism (HCC) Date Noted: 09/01/2011 Lupus anticoagulant disorder (HCC) Date Noted: 05/04/2023 CKD (chronic kidney disease) Date Noted: 05/04/2023 Knee pain Date Noted: 05/04/2023 Fall at home, initial encounter Date Noted: 09/19/2024 Obesity, Class II, BMI 35-39.9 Date Noted: 09/19/2024 HISTORY HOSPITAL COURSE: Randolph Hunter is a 74 year old female presented with past medical history of Asthma, CAD, Cartoid Stenosis, Cerebral Palsy, Depression, Hyperlipidemia, Hypertension, Hypothyroidism, Migraines, Obesity, SLE with Lupus Anticoagulant Disorder, and PE on Coumadin who presents today for evaluation of left knee pain after a fall. The patient tells me that yesterday morning she was trying to transfer from her lift chair to her regular wheelchair with help from her . She noticed that her clothing was caught on her lift chair and she was unable to transfer appropriately and her was unable to help her. She told him to let her down to the ground but didn't realize her left leg was also caught on the lift chair. She tells me that her left leg and knee "twisted" on her way to the ground and she had pain afterwards. She is non-ambulatory at baseline due to history of CP but was concerned because of the pain to the left knee as well as concern for her current facility to care for her needs so she presented to the ED for further evaluation and possible placement needs. No fever, chills, TENORIO, visual changes, URI symptoms, chest pain, palpitations, SOB, cough, abdominal pain, N/V/D, urinary symptoms, skin changes, peripheral edema, paresthesia or focal weaknesses. [facility] Course: HDS, afebrile. Labs unremarkable. Imaging including XR L KNEE/HIP/ANKLE negative for fracture. CT L KNEE negative for fracture, small joint effusion noted. The patient was admitted under (more content not included)... [facility] 09-23-2024 Note HNO ID: [id number] Author: CONCEPCION KEEN MD Service: Hospital Medicine Author Type: Physician Type: Progress Notes Filed: 09/23/2024 17:37 Note Text: DEPARTMENT OF HOSPITAL MEDICINE PROGRESS NOTE SERVICE DATE: 09/23/2024 SERVICE TIME: 5:34 PM Hospital Medicine/Primary Attending: Concepcion Keen,* NIGHT AND WEEKEND COVERAGE: [place] COVERAGE: Days: [phone], please page attending physician. Nights: [phone], please page [facility] Night coverage pager [phone]. Subjective INTERVAL HPI: Seen and examined on 09/23/2024. In much better mood today. States anxiety medicine is helping. She complains of left ankle and left knee pain, fairly controlled. She denies chest pain, shortness of breath, nausea, vomiting or abdominal pain. Current Facility-Administered Medications Medication Dose Route Frequency ramipril 5 mg cap(s) (ALTACE) 5 mg ORAL DAILY metoprolol succinate ER 100 mg tab(s) (TOPROL XL) 100 mg ORAL DAILY traZODone 50 mg tab(s) (DESYREL) 50 mg ORAL AT BEDTIME levothyroxine 150 mcg (SYNTHROID) 150 mcg ORAL DAILY (6 AM) warfarin 7.5 mg tab(s) (COUMADIN) 7.5 mg ORAL Once per day on Thursday warfarin 5 mg tab(s) (COUMADIN) 5 mg ORAL Once per day on Thursday hydrOXYchloroQUINE 200 mg tab(s) (PLAQUENIL) 200 mg ORAL DAILY dextrose 40 % 15 g 15 g ORAL PRN Or glucagon 1 mg injection 1 mg INTRAMUSCULAR PRN Or dextrose 10% iv bolus 12.5 g INTRAVENOUS PRN NaCl 0.9% iv flush bag 20 mL INTRAVENOUS PRN insulin lispro injection (rapid acting) (ADMElog) SUBCUTANEOUS w MEALS insulin lispro injection (rapid acting) (ADMElog) SUBCUTANEOUS AT BEDTIME acetaminophen 1,000 mg tab(s) (TYLENOL) 1,000 mg ORAL q 6 H PRN lidocaine 4 % 1 Patch (SALONPAS) 1 patch TRANSDERMAL DAILY AT 9 PM And lidocaine patch - REMOVE OTHER DAILY And lidocaine - VERIFY PATCH OTHER q 8 H gabapentin 300 mg tab(s) (NEURONTIN) 300 mg ORAL TID oxyCODONE IR 5 mg tab(s) (ROXICODONE) 5 mg ORAL q 6 H PRN hydrOXYzine HCl 25 mg tab(s) (ATARAX) 25 mg ORAL BID FLUoxetine 20 mg cap(s) (PROzac) 20 mg ORAL DAILY LORazepam 0.5 mg tab(s) (ATIVAN) 0.5 mg ORAL TID PRN miconazole 2 % 1 application topical powder 1 application TOPICAL BID benzonatate 100 mg cap(s) (TESSALON PERLE) 100 mg ORAL TID PRN Objective PHYSICAL EXAM: BP 126/58 Pulse 68 Temp (Src) 98.4 (Oral) Resp 16 Ht 5' 2" (1.58m) Wt 218 lb 4.1 oz (99.0kg) SpO2 100% BMI 39.91 kg/(m2). O2 Therapy: Room Air Physical Exam Performed Pleasant woman, alert, with cerebral palsy CV RRR Lungs clear anteriorly Abdomen soft Lymphedema bilateral lower extremity Left ankle swollen Left knee tender, no joint swelling Lines, Drains, and Airways Line Duration Peripheral 09/18/24 2313 Right Antecubital 20 Gauge 4 days Drain Duration External Collection Device 09/18/24 2332 [facility] 4 days Reviewed lines and needs to be continued: REASONS: Telemetry DATA: Diagnostic tests reviewed for today's visit: Most recent imaging CBC, Coags, BMP, Mg, Phos Recent Labs 09/23/24 1234 09/22/24 0639 09/21/24 0448 WBC -- -- 5.94 HB -- -- 11.4* HCT -- -- 33.6* PLT -- -- 177 INR 2.9* 2.8* 2.5* NA -- -- 138 K -- -- 4.8 CHLOR -- -- 103 CO2 -- -- 27 BUN -- -- 16 CREAT -- -- 0.79 GLUC -- -- 115* CA -- -- 8.4* MG -- -- 1.9 Assessment/Plan Problem List Assessment AND Plan Fall Type 2 diabetes, controlled, with neuropathy (HCC) Acquired hypothyroidism CP (cerebral palsy) (HCC) SLE (systemic lupus erythematosus) (HCC) Pulmonary embolism (HCC) Lupus anticoagulant disorder (HCC) CKD (chronic kidney disease) Knee pain Fall at home, initial encounter Obesity, Class II, BMI 35-39.9 Depression, recurrent HOSPITAL COURSE: Randolph Hunter is a 74 year old female presented with past medical history of asthma, CAD, carotid stenosis, cerebral falsely high functioning, depression, hypertension, hypothyroidism, migraine, SLE with lupus anticoagulant disorder, history of PE on Coumadin, presented to hospital after a fall, patient was trying to transfer from her lift chair to regular wheelchair, her clothing got caught and fell. In ER she was afebrile, vital signs stable. CBC, BMP unremarkable. INR 2.3. Left knee x-ray, no fracture. Left knee CT, small joint effusion. Left ankle x-ray, no fracture, diffuse swelling of lower extremity. Left hip and pelvic x-ray no fracture. Patient admitted for left knee and left ankle pain, unable to put weight on left leg, admitted for PT, OT evaluation, need for placement. Principal Problem: Fall (POA: Yes) Knee pain (POA: Yes) CP (cerebral palsy) (HCC) (POA: Yes) --Presented to [facility] for evaluation of left knee pain after a fall at home, non-ambulatory at baseline secondary to CP but concerns for current facility ability to meet her needs --XR L KNEE/HIP/ANKLE negative for acute osseous injury -- (more content not included)... [facility] 09-23-2024 Note HNO ID: [id number] Author: SHERYL HUITRON, RN Service: Care Management Author Type: Registered Nurse Type: Care Mgt Progress Note Filed: 09/23/2024 16:53 Note Text: CARE MANAGEMENT PROGRESS NOTE SERVICE DATE: 09/23/2024 SERVICE TIME: 8:09 AM LOS: 0 days Discharge Plan: Custodial Facility SNF: [facility] - : Able to Accept. [facility] tasked to start insurance precert for SNF. [place] PASRR completed. Level II Review Required. Determination: Pending. Discharge Transportation: Medical Transport - COT Transport Envelope on Chart SNF [facility] Updated in [facility]. Needs Prior to Discharge: To Be Determined, Insurance Authorization, Precertification, Discharge Transportation (PASRR Level II Determination) CM Dept to Follow. 09/23/24 11:46 AM [facility] confirms Precert Obtained: Patient has been APPROVED to admit to [facility] in the [facility][NOTE 3] Portal starting 09/23-09/25 NRD 09/25 Auth ID [id number]. [place] PASRR Level II Review Determination is Still Pending. SNF: [facility] - Updated in [facility] Transitions. They can not accept until they receive the PASRR determination. CM dept to Follow. 09/23/24 4:52 PM RN CM checked [place] PASRR Document ID : [id number] - Still Pending Level II Determination. CM Dept to follow. SIGNATURE: Sheryl Huitron, RN PATIENT NAME: Randolph Hunter DATE: September 23, 2024 TIME: 8:08 AM [facility] 09-22-2024 Note HNO ID: [id number] Author: CONCEPCION KEEN MD Service: Hospital Medicine Author Type: Physician Type: Progress Notes Filed: 09/22/2024 12:13 Note Text: DEPARTMENT OF HOSPITAL MEDICINE PROGRESS NOTE SERVICE DATE: 09/22/2024 SERVICE TIME: 12:12 PM Hospital Medicine/Primary Attending: Concepcion Keen,* NIGHT AND WEEKEND COVERAGE: [place] COVERAGE: Days: [phone], please page attending physician. Nights: [phone], please page [facility] Hospitalist Night coverage pager [phone]. Subjective INTERVAL HPI: Seen and examined on 09/22/2024. In much better mood today. States anxiety medicine is helping. She complains of left ankle and left knee pain, fairly controlled. She denies chest pain, shortness of breath, nausea, vomiting or abdominal pain. Current Facility-Administered Medications Medication Dose Route Frequency ramipril 5 mg cap(s) (ALTACE) 5 mg ORAL DAILY metoprolol succinate ER 100 mg tab(s) (TOPROL XL) 100 mg ORAL DAILY traZODone 50 mg tab(s) (DESYREL) 50 mg ORAL AT BEDTIME levothyroxine 150 mcg (SYNTHROID) 150 mcg ORAL DAILY (6 AM) warfarin 7.5 mg tab(s) (COUMADIN) 7.5 mg ORAL Once per day on Thursday warfarin 5 mg tab(s) (COUMADIN) 5 mg ORAL Once per day on Thursday hydrOXYchloroQUINE 200 mg tab(s) (PLAQUENIL) 200 mg ORAL DAILY dextrose 40 % 15 g 15 g ORAL PRN Or glucagon 1 mg injection 1 mg INTRAMUSCULAR PRN Or dextrose 10% iv bolus 12.5 g INTRAVENOUS PRN NaCl 0.9% iv flush bag 20 mL INTRAVENOUS PRN insulin lispro injection (rapid acting) (ADMElog) SUBCUTANEOUS w MEALS insulin lispro injection (rapid acting) (ADMElog) SUBCUTANEOUS AT BEDTIME acetaminophen 1,000 mg tab(s) (TYLENOL) 1,000 mg ORAL q 6 H PRN lidocaine 4 % 1 Patch (SALONPAS) 1 patch TRANSDERMAL DAILY AT 9 PM And lidocaine patch - REMOVE OTHER DAILY And lidocaine - VERIFY PATCH OTHER q 8 H gabapentin 300 mg tab(s) (NEURONTIN) 300 mg ORAL TID oxyCODONE IR 5 mg tab(s) (ROXICODONE) 5 mg ORAL q 6 H PRN hydrOXYzine HCl 25 mg tab(s) (ATARAX) 25 mg ORAL BID FLUoxetine 20 mg cap(s) (PROzac) 20 mg ORAL DAILY LORazepam 0.5 mg tab(s) (ATIVAN) 0.5 mg ORAL TID PRN miconazole 2 % 1 application topical powder 1 application TOPICAL BID Objective PHYSICAL EXAM: BP 118/48 Pulse 62 Temp (Src) 98.2 (Oral) Resp 16 Ht 5' 2" (1.58m) Wt 218 lb 4.1 oz (99.0kg) SpO2 100% BMI 39.91 kg/(m2). O2 Therapy: Room Air Physical Exam Performed Pleasant woman, alert, with cerebral palsy CV RRR Lungs clear anteriorly Abdomen soft Lymphedema bilateral lower extremity Left ankle swollen Left knee tender, no joint swelling Lines, Drains, and Airways Line Duration Peripheral 09/18/24 2313 Right Antecubital 20 Gauge 3 days Drain Duration External Collection Device 09/18/24 2332 [facility] 3 days Reviewed lines and needs to be continued: REASONS: Telemetry DATA: Diagnostic tests reviewed for today's visit: Most recent imaging CBC, Coags, BMP, Mg, Phos Recent Labs 09/22/24 0639 09/21/24 0448 09/20/24 0518 WBC -- 5.94 5.70 HB -- 11.4* 12.4 HCT -- 33.6* 36.8 PLT -- 177 175 INR 2.8* 2.5* 1.6* NA -- 138 138 K -- 4.8 4.7 CHLOR -- 103 102 CO2 -- 27 29 BUN -- 16 11 CREAT -- 0.79 0.82 GLUC -- 115* 134* CA -- 8.4* 8.9 MG -- 1.9 1.9 Assessment/Plan Problem List Assessment AND Plan Fall Type 2 diabetes, controlled, with neuropathy (HCC) Acquired hypothyroidism CP (cerebral palsy) (HCC) SLE (systemic lupus erythematosus) (HCC) Pulmonary embolism (HCC) Lupus anticoagulant disorder (HCC) CKD (chronic kidney disease) Knee pain Fall at home, initial encounter Obesity, Class II, BMI 35-39.9 Depression, recurrent HOSPITAL COURSE: Randolph Hunter is a 74 year old female presented with past medical history of asthma, CAD, carotid stenosis, cerebral falsely high functioning, depression, hypertension, hypothyroidism, migraine, SLE with lupus anticoagulant disorder, history of PE on Coumadin, presented to hospital after a fall, patient was trying to transfer from her lift chair to regular wheelchair, her clothing got caught and fell. In ER she was afebrile, vital signs stable. CBC, BMP unremarkable. INR 2.3. Left knee x-ray, no fracture. Left knee CT, small joint effusion. Left ankle x-ray, no fracture, diffuse swelling of lower extremity. Left hip and pelvic x-ray no fracture. Patient admitted for left knee and left ankle pain, unable to put weight on left leg, admitted for PT, OT evaluation, need for placement. Principal Problem: Fall (POA: Yes) Knee pain (POA: Yes) CP (cerebral palsy) (HCC) (POA: Yes) --Presented to [facility] for evaluation of left knee pain after a fall at home, non-ambulatory at baseline secondary to CP but concerns for current facility ability to meet her needs --XR L KNEE/HIP/ANKLE negative for acute osseous injury --CT L KNEE negative for fracture, small joint eff (more content not included)... [facility] 09-22-2024 Note HNO ID: [id number] Author: CONCEPCION KEEN MD Service: Care Management Author Type: Physician Type: Care Mgt Progress Note Filed: 09/22/2024 12:13 Note Text: Physician Certification of Less Than 30 Days Skilled Needs Earliest Possible Discharge Date: 09/22/24 To the best of my knowledge, all information provided about the individual is a true and an accurate reflection of Randolph Hunter's needs. I certify that following the inpatient level of care, a post-acute nursing facility stay is required for less than 30 days related to the condition(s) for which the patient was treated during the inpatient level of care: Principal Problem: Fall Active Problems: Type 2 diabetes, controlled, with neuropathy (HCC) Acquired hypothyroidism CP (cerebral palsy) (HCC) Depression, recurrent SLE (systemic lupus erythematosus) (HCC) Pulmonary embolism (HCC) Lupus anticoagulant disorder (HCC) CKD (chronic kidney disease) Knee pain Fall at home, initial encounter Obesity, Class II, BMI 35-39.9 Resolved Problems: * No resolved hospital problems. * Attending Physician: Concepcion Keen,* [facility] 09-22-2024 Note HNO ID: [id number] Author: SHERYL HUITRON RN Service: Care Management Author Type: Registered Nurse Type: Care Mgt Progress Note Filed: 09/22/2024 15:17 Note Text: CARE MANAGEMENT PROGRESS NOTE SERVICE DATE: 09/22/2024 SERVICE TIME: 8:35 AM SNF Referrals: [facility] - Pending [facility]ial [facility] Rehab - Able to Accept [facility] - [facility] - Able to Accept Patients SNF 1st choice is pending. RN CM updated Referral and requested update on acceptance. PT AND OT messaged to request updates for Precert. Patient has been updated that [facility] is still pending. Discharge Transportation: To be Determined. Needs Prior to Discharge: Accepting Facility, OT/PT Evaluation, Insurance Authorization, Precertification, Discharge Transportation CM Dept to Follow. 09/22/24 3:10 PM [facility] - Able to Accept PASR Completed in [facility] - Level II Review Required. RN JESSICA called the [facility] [phone] Option 2 Service and Support Administration and spoke with Ping Ramsey at [phone]. She checked and informed CM that it has not been received from [facility] at this time. She reports she it will be reviewed once received. She updated CM that if they do not receive today it will not be reviewed until Thursday. No one in office tomorrow to review. PT AND OT evaluations updated today. Patient will need Precert. CM Dept to Follow. SIGNATURE: Sheryl Huitron RN PATIENT NAME: Randolph Hunter DATE: September 22, 2024 TIME: 8:35 AM [facility] 09-21-2024 Note HNO ID: [id number] Author: GILMER COTTNO, PhD Service: ? Author Type: Psychologist Type: Progress Notes Filed: 09/21/2024 17:07 Note Text: [facility]al [facility] Department Progress Note Randolph Hunter 09/21/2024 [id number] PROVIDER: Gilmer Cotton, PhD CPT Code: Time: 30 minutes Setting: Due to the federal emergency declaration and the need for ongoing mental health services, the following visit was completed virtually and informed consent obtained orally to reduce the risk of COVID-19 exposure. Oral consent to services related to virtual visits was obtained after information was sent via [employer] or read to patient if [employer] not available." Phone ... no access to Internet since at hospital Parties Present: Patient Treatment Modality/Interventions: Cognitive Behavioral Reassurance/Supportive Insight oriented Problem solving Processing of emotions Psychoeducation MENTAL STATUS: Mood: variable, depressed, anxious, fearful, irritable Affect: mood-congruent Thoughts/Associations:goal directed Suicidal/Homicidal Ideation: None expressed or evidenced Other Prominent Symptoms: Therapy Focus/Content of Session: Self-care, Stress management, Mood/affect regulation, Self-esteem, Coping with chronic illness, and Trauma Pt had a UTI now resolved She fell and has a bed sore And needs to be moved every 2 hours Grand daughter came and went? able to play and hold the baby 22 ? lbs 8mo old girl Needs next to go to rehab center to focus on leg knee and ankle on which she tripped and fell PAIN on oxy and back on Prozac Pt was very distressed and able to calm after venting and sharing her story of recent days MEDICATIONS: Per medical record: No current facility-administered medications for this visit. No current outpatient medications on file. Facility-Administered Medications Ordered in Other Visits Medication Dose Route Frequency hydrOXYzine HCl 25 mg tab(s) (ATARAX) 25 mg ORAL BID FLUoxetine 20 mg cap(s) (PROzac) 20 mg ORAL DAILY LORazepam 0.5 mg tab(s) (ATIVAN) 0.5 mg ORAL TID PRN ramipril 5 mg cap(s) (ALTACE) 5 mg ORAL DAILY metoprolol succinate ER 100 mg tab(s) (TOPROL XL) 100 mg ORAL DAILY traZODone 50 mg tab(s) (DESYREL) 50 mg ORAL AT BEDTIME levothyroxine 150 mcg (SYNTHROID) 150 mcg ORAL DAILY (6 AM) warfarin 7.5 mg tab(s) (COUMADIN) 7.5 mg ORAL Once per day on Thursday warfarin 5 mg tab(s) (COUMADIN) 5 mg ORAL Once per day on Thursday hydrOXYchloroQUINE 200 mg tab(s) (PLAQUENIL) 200 mg ORAL DAILY dextrose 40 % 15 g 15 g ORAL PRN Or glucagon 1 mg injection 1 mg INTRAMUSCULAR PRN Or dextrose 10% iv bolus 12.5 g INTRAVENOUS PRN NaCl 0.9% iv flush bag 20 mL INTRAVENOUS PRN insulin lispro injection (rapid acting) (ADMElog) SUBCUTANEOUS w MEALS insulin lispro injection (rapid acting) (ADMElog) SUBCUTANEOUS AT BEDTIME acetaminophen 1,000 mg tab(s) (TYLENOL) 1,000 mg ORAL q 6 H PRN lidocaine 4 % 1 Patch (SALONPAS) 1 patch TRANSDERMAL DAILY AT 9 PM And lidocaine patch - REMOVE OTHER DAILY And lidocaine - VERIFY PATCH OTHER q 8 H gabapentin 300 mg tab(s) (NEURONTIN) 300 mg ORAL TID clotrimazole 1 % (LOTRIMIN) TOPICAL BID oxyCODONE IR 5 mg tab(s) (ROXICODONE) 5 mg ORAL q 6 H PRN Psychiatric Medication Issues: as noted DIAGNOSIS: Hewett I: Depressive Disorder recurrent Morbidly Obese CP Hewett II : Deferred Hewett III : See medical history Hewett IV: Health Hewett V: GAF 60-51 Moderate symptoms or moderate difficulty in social, occupational or school functioning TREATMENT PROGRESS/ASSESSMENT: Fluctuating progress. TREATMENT PLAN/GOALS: Continue in therapy focusing on self-care, stress management, affect management, anxiety management, and self-esteem. Next appointment: as scheduled Gilmer Cotton, PhD [facility] 09-21-2024 Note HNO ID: [id number] Author: CONCEPCION KEEN MD Service: Hospital Medicine Author Type: Physician Type: Progress Notes Filed: 09/21/2024 16:30 Note Text: DEPARTMENT OF HOSPITAL MEDICINE PROGRESS NOTE SERVICE DATE: 09/21/2024 SERVICE TIME: 4:28 PM Hospital Medicine/Primary Attending: Concepcion Keen,* NIGHT AND WEEKEND COVERAGE: [place] COVERAGE: Days: [phone], please page attending physician. Nights: [phone], please page [facility] Night coverage pager [phone]. Subjective INTERVAL HPI: Seen and examined on 09/21/2024. She complains of left ankle and left knee pain, complain of anxiety. She denies chest pain, shortness of breath, nausea, vomiting or abdominal pain. Current Facility-Administered Medications Medication Dose Route Frequency ramipril 5 mg cap(s) (ALTACE) 5 mg ORAL DAILY metoprolol succinate ER 100 mg tab(s) (TOPROL XL) 100 mg ORAL DAILY traZODone 50 mg tab(s) (DESYREL) 50 mg ORAL AT BEDTIME levothyroxine 150 mcg (SYNTHROID) 150 mcg ORAL DAILY (6 AM) warfarin 7.5 mg tab(s) (COUMADIN) 7.5 mg ORAL Once per day on Thursday warfarin 5 mg tab(s) (COUMADIN) 5 mg ORAL Once per day on Thursday hydrOXYchloroQUINE 200 mg tab(s) (PLAQUENIL) 200 mg ORAL DAILY dextrose 40 % 15 g 15 g ORAL PRN Or glucagon 1 mg injection 1 mg INTRAMUSCULAR PRN Or dextrose 10% iv bolus 12.5 g INTRAVENOUS PRN NaCl 0.9% iv flush bag 20 mL INTRAVENOUS PRN insulin lispro injection (rapid acting) (ADMElog) SUBCUTANEOUS w MEALS insulin lispro injection (rapid acting) (ADMElog) SUBCUTANEOUS AT BEDTIME acetaminophen 1,000 mg tab(s) (TYLENOL) 1,000 mg ORAL q 6 H PRN lidocaine 4 % 1 Patch (SALONPAS) 1 patch TRANSDERMAL DAILY AT 9 PM And lidocaine patch - REMOVE OTHER DAILY And lidocaine - VERIFY PATCH OTHER q 8 H gabapentin 300 mg tab(s) (NEURONTIN) 300 mg ORAL TID clotrimazole 1 % (LOTRIMIN) TOPICAL BID oxyCODONE IR 5 mg tab(s) (ROXICODONE) 5 mg ORAL q 6 H PRN hydrOXYzine HCl 25 mg tab(s) (ATARAX) 25 mg ORAL BID FLUoxetine 20 mg cap(s) (PROzac) 20 mg ORAL DAILY LORazepam 0.5 mg tab(s) (ATIVAN) 0.5 mg ORAL TID PRN Objective PHYSICAL EXAM: BP 146/58 Pulse 71 Temp (Src) 98.1 (Oral) Resp 18 Ht 5' 2" (1.58m) Wt 218 lb 4.1 oz (99.0kg) SpO2 94% BMI 39.91 kg/(m2). O2 Therapy: Room Air Physical Exam Performed Pleasant woman, alert, with cerebral palsy CV RRR Lungs clear anteriorly Abdomen soft Lymphedema bilateral lower extremity Left ankle swollen Left knee tender, no joint swelling Lines, Drains, and Airways Line Duration Peripheral 09/18/24 2313 Right Antecubital 20 Gauge 2 days Drain Duration External Collection Device 09/18/24 2332 [facility] 2 days Reviewed lines and needs to be continued: REASONS: Telemetry DATA: Diagnostic tests reviewed for today's visit: Most recent imaging CBC, Coags, BMP, Mg, Phos Recent Labs 09/21/24 0448 09/20/24 0518 09/19/24 0641 09/19/24 0640 WBC 5.94 5.70 -- 7.29 HB 11.4* 12.4 -- 11.0* HCT 33.6* 36.8 -- 33.3* PLT 177 175 -- 158 INR 2.5* 1.6* 1.7* -- NA 138 138 140 -- K 4.8 4.7 4.7 -- CHLOR 103 102 103 -- CO2 27 29 24 -- BUN 16 11 10 -- CREAT 0.79 0.82 0.76 -- GLUC 115* 134* 106* -- CA 8.4* 8.9 8.6 -- MG 1.9 1.9 1.8 -- Assessment/Plan Problem List Assessment AND Plan Fall Type 2 diabetes, controlled, with neuropathy (HCC) Acquired hypothyroidism CP (cerebral palsy) (HCC) SLE (systemic lupus erythematosus) (HCC) Pulmonary embolism (HCC) Lupus anticoagulant disorder (HCC) CKD (chronic kidney disease) Knee pain Fall at home, initial encounter Obesity, Class II, BMI 35-39.9 Depression, recurrent HOSPITAL COURSE: Randolph Hunter is a 74 year old female presented with past medical history of asthma, CAD, carotid stenosis, cerebral falsely high functioning, depression, hypertension, hypothyroidism, migraine, SLE with lupus anticoagulant disorder, history of PE on Coumadin, presented to hospital after a fall, patient was trying to transfer from her lift chair to regular wheelchair, her clothing got caught and fell. In ER she was afebrile, vital signs stable. CBC, BMP unremarkable. INR 2.3. Left knee x-ray, no fracture. Left knee CT, small joint effusion. Left ankle x-ray, no fracture, diffuse swelling of lower extremity. Left hip and pelvic x-ray no fracture. Patient admitted for left knee and left ankle pain, unable to put weight on left leg, admitted for PT, OT evaluation, need for placement. Principal Problem: Fall (POA: Yes) Knee pain (POA: Yes) CP (cerebral palsy) (HCC) (POA: Yes) --Presented to [facility] for evaluation of left knee pain after a fall at home, non-ambulatory at baseline secondary to CP but concerns for current facility ability to meet her needs --XR L KNEE/HIP/ANKLE negative for acute osseous injury --CT L KNEE negative for fracture, small joint effusion noted --[place] (more content not included)... [facility] 09-21-2024 Note HNO ID: [id number] Author: SHERYL HUITRON RN Service: Care Management Author Type: Registered Nurse Type: Care Mgt Progress Note Filed: 09/21/2024 10:53 Note Text: CARE MANAGEMENT PROGRESS NOTE SERVICE DATE: 09/21/2024 SERVICE TIME: 9:19 AM LOS: 0 days Patient requesting a SNF Provider List for [place]: [id number]. [facility] SNF Provider List for [place] given to patient at bedside. Needs Prior to Discharge: To Be Determined, Facility or Agency Choices, Accepting Facility, Insurance Authorization, Precertification, Discharge Transportation CM Dept to Follow. 09/21/24 10:50 AM Patient provided SNF choices in order of preference: [facility] AND Rehab [facility] SNF Referrals sent in [facility]. Precert Needed for SNF. CM Dept to Follow. SIGNATURE: Sheryl Huitron RN PATIENT NAME: Randolph Hunter DATE: September 21, 2024 TIME: 9:19 AM [facility] 09-21-2024 Note HNO ID: [id number] Author: SHERYL HUITRON RN Service: Care Management Author Type: Registered Nurse Type: Care Mgt Progress Note Filed: 09/21/2024 08:53 Note Text: CARE MANAGEMENT PROGRESS NOTE SERVICE DATE: 09/21/2024 SERVICE TIME: 8:38 AM LOS: 0 days 09/18/24 Admission Hospital Consults: PT. OT. O2: room air Diet: regular + supplement 09/19/24 PT recommended SNF 09/20/24 OT recommended SNF RN CM met with patient at bedside to discuss discharge planning. RN CM discussed PT AND OT recommendations for SNF. [facility] SNF provider list given to patient. Patient informed she needs to provide 3 SNF choices in order of preference and she will require an insurance authorization/precert for SNF once she has an accepting SNF. [place] of Choice Given: Yes Level of Care Discussed: Custodial Facility Financial Disclosure Provided: Yes Financial Disclosure Comments: [facility] SNF Provider Lists [id number] an [id number] given to patient at bedside to review and provide SNF choices. Provider List: Custodial Facility Provider list within the patient's requested geographic area shared with the patient/family: Yes within: 15 miles of zip code: [address] (Patient also requesting a list for zip code [address].) Quality and resource use metrics shared with the patient that are relevant to the patient's goals of care and treatment preferences:: Yes Metrics: Functional Status No SNF choices provided by patient at this time. Patient informed to ask to CM as soon as she has made her choices. Needs Prior to Discharge: To Be Determined, Facility or Agency Choices, Accepting Facility, Insurance Authorization, Precertification, Discharge Transportation CM Dept to Follow. SIGNATURE: Sheryl Huitron RN PATIENT NAME: Randolph Hunter DATE: September 21, 2024 TIME: 8:38 AM [facility] 09-20-2024 Note HNO ID: [id number] Author: CONCEPCION KEEN MD Service: Hospital Medicine Author Type: Physician Type: Progress Notes Filed: 09/20/2024 16:05 Note Text: DEPARTMENT OF HOSPITAL MEDICINE PROGRESS NOTE SERVICE DATE: 09/20/2024 SERVICE TIME: 4:04 PM Hospital Medicine/Primary Attending: Concepcion Keen,* NIGHT AND WEEKEND COVERAGE: [place] COVERAGE: Days: [phone], please page attending physician. Nights: [phone], please page [facility] Night coverage pager [phone]. Subjective INTERVAL HPI: Seen and examined on 09/20/2024. She complains of left ankle and left knee pain, states currently pain is severe. She denies chest pain, shortness of breath, nausea, vomiting or abdominal pain. Current Facility-Administered Medications Medication Dose Route Frequency ramipril 5 mg cap(s) (ALTACE) 5 mg ORAL DAILY metoprolol succinate ER 100 mg tab(s) (TOPROL XL) 100 mg ORAL DAILY traZODone 50 mg tab(s) (DESYREL) 50 mg ORAL AT BEDTIME levothyroxine 150 mcg (SYNTHROID) 150 mcg ORAL DAILY (6 AM) warfarin 7.5 mg tab(s) (COUMADIN) 7.5 mg ORAL Once per day on Thursday warfarin 5 mg tab(s) (COUMADIN) 5 mg ORAL Once per day on Thursday hydrOXYchloroQUINE 200 mg tab(s) (PLAQUENIL) 200 mg ORAL DAILY dextrose 40 % 15 g 15 g ORAL PRN Or glucagon 1 mg injection 1 mg INTRAMUSCULAR PRN Or dextrose 10% iv bolus 12.5 g INTRAVENOUS PRN NaCl 0.9% iv flush bag 20 mL INTRAVENOUS PRN insulin lispro injection (rapid acting) (ADMElog) SUBCUTANEOUS w MEALS insulin lispro injection (rapid acting) (ADMElog) SUBCUTANEOUS AT BEDTIME acetaminophen 1,000 mg tab(s) (TYLENOL) 1,000 mg ORAL q 6 H PRN lidocaine 4 % 1 Patch (SALONPAS) 1 Patch TRANSDERMAL DAILY AT 9 PM And lidocaine patch - REMOVE OTHER DAILY And lidocaine - VERIFY PATCH OTHER q 8 H hydrOXYzine HCl 25 mg tab(s) (ATARAX) 25 mg ORAL TID PRN gabapentin 300 mg tab(s) (NEURONTIN) 300 mg ORAL TID clotrimazole 1 % (LOTRIMIN) TOPICAL BID oxyCODONE IR 5 mg tab(s) (ROXICODONE) 5 mg ORAL q 6 H PRN Objective PHYSICAL EXAM: BP 156/71 Pulse 61 Temp (Src) 97.3 (Oral) Resp 16 Ht 5' 2" (1.58m) Wt 218 lb 4.1 oz (99.0kg) SpO2 97% BMI 39.91 kg/(m2). O2 Therapy: Room Air Physical Exam Performed Pleasant woman, alert, with cerebral palsy CV RRR Lungs clear anteriorly Abdomen soft Lymphedema bilateral lower extremity Left ankle swollen Left knee tender, no joint swelling Lines, Drains, and Airways Line Duration Peripheral 09/18/24 2313 Right Antecubital 20 Gauge 1 day Drain Duration External Collection Device 09/18/24 2332 [facility] 1 day Reviewed lines and needs to be continued: REASONS: Telemetry DATA: Diagnostic tests reviewed for today's visit: Most recent imaging CBC, Coags, BMP, Mg, Phos Recent Labs 09/20/24 0518 09/19/24 0641 09/19/24 0640 09/18/24 2313 09/18/24 1025 WBC 5.70 -- 7.29 7.63 -- HB 12.4 -- 11.0* 12.6 -- HCT 36.8 -- 33.3* 37.2 -- PLT 175 -- 158 176 -- INR 1.6* 1.7* -- -- 2.3* NA 138 140 -- 136 -- K 4.7 4.7 -- 4.3 -- CHLOR 102 103 -- 98 -- CO2 29 24 -- 28 -- BUN 11 10 -- 10 -- CREAT 0.82 0.76 -- 0.80 -- GLUC 134* 106* -- 121* -- CA 8.9 8.6 -- 9.1 -- MG 1.9 1.8 -- -- -- Assessment/Plan Problem List Assessment AND Plan Fall Type 2 diabetes, controlled, with neuropathy (HCC) Acquired hypothyroidism CP (cerebral palsy) (HCC) SLE (systemic lupus erythematosus) (HCC) Pulmonary embolism (HCC) Lupus anticoagulant disorder (HCC) CKD (chronic kidney disease) Knee pain Fall at home, initial encounter Obesity, Class II, BMI 35-39.9 HOSPITAL COURSE: Randolph Hunter is a 74 year old female presented with past medical history of asthma, CAD, carotid stenosis, cerebral falsely high functioning, depression, hypertension, hypothyroidism, migraine, SLE with lupus anticoagulant disorder, history of PE on Coumadin, presented to hospital after a fall, patient was trying to transfer from her lift chair to regular wheelchair, her clothing got caught and fell. In ER she was afebrile, vital signs stable. CBC, BMP unremarkable. INR 2.3. Left knee x-ray, no fracture. Left knee CT, small joint effusion. Left ankle x-ray, no fracture, diffuse swelling of lower extremity. Left hip and pelvic x-ray no fracture. Patient admitted for left knee and left ankle pain, unable to put weight on left leg, admitted for PT, OT evaluation, need for placement. Principal Problem: Fall (POA: Yes) Knee pain (POA: Yes) CP (cerebral palsy) (HCC) (POA: Yes) --Presented to [facility] ED for evaluation of left knee pain after a fall at home, non-ambulatory at baseline secondary to CP but concerns for current facility ability to meet her needs --XR L KNEE/HIP/ANKLE negative for acute osseous injury --CT L KNEE negative for fracture, small joint effusion noted --Pain control as needed. On Lidoderm patch, Tylenol. Added oxycodone (more content not included)... [facility] 09-19-2024 Note HNO ID: [id number] Author: CONCEPCION KEEN MD Service: Hospital Medicine Author Type: Physician Type: Progress Notes Filed: 09/19/2024 14:41 Note Text: DEPARTMENT OF HOSPITAL MEDICINE PROGRESS NOTE SERVICE DATE: 09/19/2024 SERVICE TIME: 2:33 PM Hospital Medicine/Primary Attending: Concepcion Keen,* NIGHT AND WEEKEND COVERAGE: [place] COVERAGE: Days: [phone], please page attending physician. Nights: [phone], please page [facility] Night coverage pager [phone]. Subjective INTERVAL HPI: Seen and examined on 09/09/2024. She complains of left ankle and left knee pain. She denies chest pain, shortness of breath, nausea, vomiting or abdominal pain. Current Facility-Administered Medications Medication Dose Route Frequency ramipril 5 mg cap(s) (ALTACE) 5 mg ORAL DAILY metoprolol succinate ER 100 mg tab(s) (TOPROL XL) 100 mg ORAL DAILY traZODone 50 mg tab(s) (DESYREL) 50 mg ORAL AT BEDTIME levothyroxine 150 mcg (SYNTHROID) 150 mcg ORAL DAILY (6 AM) warfarin 7.5 mg tab(s) (COUMADIN) 7.5 mg ORAL Once per day on Thursday [START ON 09/20/2024] warfarin 5 mg tab(s) (COUMADIN) 5 mg ORAL Once per day on Thursday hydrOXYchloroQUINE 200 mg tab(s) (PLAQUENIL) 200 mg ORAL DAILY dextrose 40 % 15 g 15 g ORAL PRN Or glucagon 1 mg injection 1 mg INTRAMUSCULAR PRN Or dextrose 10% iv bolus 12.5 g INTRAVENOUS PRN NaCl 0.9% iv flush bag 20 mL INTRAVENOUS PRN insulin lispro injection (rapid acting) (ADMElog) SUBCUTANEOUS w MEALS insulin lispro injection (rapid acting) (ADMElog) SUBCUTANEOUS AT BEDTIME acetaminophen 1,000 mg tab(s) (TYLENOL) 1,000 mg ORAL q 6 H PRN lidocaine 4 % 1 Patch (SALONPAS) 1 Patch TRANSDERMAL DAILY AT 9 PM And [START ON 09/20/2024] lidocaine patch - REMOVE OTHER DAILY And lidocaine - VERIFY PATCH OTHER q 8 H hydrOXYzine HCl 25 mg tab(s) (ATARAX) 25 mg ORAL TID PRN gabapentin 300 mg tab(s) (NEURONTIN) 300 mg ORAL TID clotrimazole 1 % (LOTRIMIN) TOPICAL BID oxyCODONE IR 5 mg tab(s) (ROXICODONE) 5 mg ORAL q 6 H PRN Objective PHYSICAL EXAM: BP 153/63 Pulse 77 Temp (Src) 98.1 (Oral) Resp 16 Ht 5' 2" (1.58m) Wt 218 lb 4.1 oz (99.0kg) SpO2 98% BMI 39.91 kg/(m2). O2 Therapy: Room Air Physical Exam Performed Pleasant woman, alert, with cerebral palsy CV RRR Lungs clear anteriorly Abdomen soft Lymphedema bilateral lower extremity Left ankle swollen Left knee tender, no joint swelling Lines, Drains, and Airways Line Duration Peripheral 09/18/24 2313 Right Antecubital 20 Gauge <1 day Drain Duration External Collection Device 09/18/24 2332 [facility] <1 day Reviewed lines and needs to be continued: REASONS: Telemetry DATA: Diagnostic tests reviewed for today's visit: Most recent imaging CBC, Coags, BMP, Mg, Phos Recent Labs 09/19/24 0641 09/19/24 0640 09/18/24 2313 09/18/24 1025 WBC -- 7.29 7.63 -- HB -- 11.0* 12.6 -- HCT -- 33.3* 37.2 -- PLT -- 158 176 -- INR 1.7* -- -- 2.3* NA 140 -- 136 -- K 4.7 -- 4.3 -- CHLOR 103 -- 98 -- CO2 24 -- 28 -- BUN 10 -- 10 -- CREAT 0.76 -- 0.80 -- GLUC 106* -- 121* -- CA 8.6 -- 9.1 -- MG 1.8 -- -- -- Assessment/Plan Problem List Assessment AND Plan Fall Type 2 diabetes, controlled, with neuropathy (HCC) Acquired hypothyroidism CP (cerebral palsy) (HCC) SLE (systemic lupus erythematosus) (HCC) Pulmonary embolism (HCC) Lupus anticoagulant disorder (HCC) CKD (chronic kidney disease) Knee pain Fall at home, initial encounter Obesity, Class II, BMI 35-39.9 HOSPITAL COURSE: Randolph Hunter is a 74 year old female presented with past medical history of asthma, CAD, carotid stenosis, cerebral falsely high functioning, depression, hypertension, hypothyroidism, migraine, SLE with lupus anticoagulant disorder, history of PE on Coumadin, presented to hospital after a fall, patient was trying to transfer from her lift chair to regular wheelchair, her clothing got caught and fell. In ER she was afebrile, vital signs stable. CBC, BMP unremarkable. INR 2.3. Left knee x-ray, no fracture. Left knee CT, small joint effusion. Left ankle x-ray, no fracture, diffuse swelling of lower extremity. Left hip and pelvic x-ray no fracture. Patient admitted for left knee and left ankle pain, unable to put weight on left leg, admitted for PT, OT evaluation, need for placement. Principal Problem: Fall (POA: Yes) Knee pain (POA: Yes) CP (cerebral palsy) (HCC) (POA: Yes) --Presented to [facility] for evaluation of left knee pain after a fall at home, non-ambulatory at baseline secondary to CP but concerns for current facility ability to meet her needs --XR L KNEE/HIP/ANKLE negative for acute osseous injury --CT L KNEE negative for fracture, small joint effusion noted --Pain control as needed. On Lidoderm patch, Tylenol. Added oxycodone. --PT/OT evaluations --Fall Precautions --CM consulted for (more content not included)... [facility] 09-19-2024 Note HNO ID: [id number] Author: JADE SPARROW RN Service: Care Management Author Type: Registered Nurse Type: Care Mgt Initial Assessment Filed: 09/19/2024 10:28 Note Text: CARE MANAGEMENT: ASSESSMENT AND DISCHARGE PLAN SERVICE DATE: September 19, 2024 SERVICE TIME: 10:26 AM PCP: Raf Casey MD, MD Primary Contact: Extended Emergency Contact Information Primary Emergency Contact: Harper Hunter (HCPOA) Mobile Relation: Son Admission Status: Observation Insurance Provider: [facility] DUAL COMPLETE HMO POS SNP Discharge Planning requested by: Per Department Practice Potential Transition Plans To Be Determined Advance Directives Current Advance Directive: Health Care Power of Registrar Assistant, Living Will In Chart: Yes Up To Date and Valid: Yes Current Living Arrangements and Support Lives with: Spouse/significant other Type of Residence: Assisted Living Facility Does the patient have to climb stairs at home?: No Care Facility Name: [facility] Support: Children, Spouse/significant other How do you manage to accomplish the following: Independent: Medication Management Needs Assistance: Bathe/Shower, Dress, Going to the bathroom Dependent: Ambulation, Meals/Meal Prep, Transportation to appointments/community Current Services/Equipment Current Post-Acute Service(s): DME Current DME Type: Wheelchair-manual, Other: See Comment, Bedside commode (Lift Chair) Discharge Planning Patient Goal(s): Increase strength Ferron of Choice Explained: Ferron of Choice Given: No Reason Not Given: Unable to complete with this assessment - revisit Are you interested in bedside delivery of your medications? No Discharge Planning Participant(s): Patient Patient/Family Comments: Caregiver Assessment: Caregiver is ready, willing and able to meet the patient's needs as recommended by the inter-professional team: Other: See Comment (From [facility]) Transport at Discharge: Transportation Arrangements: Ambulance Needs Prior to Discharge: Needs Prior to Discharge: OT/PT Evaluation Post-Acute Discharge Plan: Review of the chart and met with the patient. The patient states she lives with her at [facility] in [place]. States pivots from her lift chair to her wheelchair and able to pivot from her wheelchair to her BSC. The patient states the [facility] provides her meals and laundry services, the patient takes care of her own medications. PT evals- Pending. CM department will continue to follow for DC needs. SIGNATURE: Jade Sparrow RN PATIENT NAME: Randolph Hunter DATE: September 19, 2024 TIME: 10:26 AM [facility] 09-02-2024 Note HNO ID: [id number] Author: GILMER COTTON, PhD Service: ? Author Type: Psychologist Type: Progress Notes Filed: 09/02/2024 12:02 Note Text: [facility] Department Progress Note Randolph Hunter 09/02/2024 [id number] PROVIDER: Gilmer Cotton, PhD CPT Code: Time: 50 minutes Setting: Due to the federal emergency declaration and the need for ongoing mental health services, the following visit was completed virtually and informed consent obtained orally to reduce the risk of COVID-19 exposure. Oral consent to services related to virtual visits was obtained after information was sent via [employer] or read to patient if MyChart not available." Parties Present: Patient Treatment Modality/Interventions: Cognitive Behavioral Reassurance/Supportive Insight oriented Problem solving Processing of emotions Psychoeducation MENTAL STATUS: Mood: variable Affect: mood-congruent Thoughts/Associations:goal directed Suicidal/Homicidal Ideation: None expressed or evidenced Other Prominent Symptoms: Therapy Focus/Content of Session: Self-care, Stress management, Mood/affect regulation, Family relationships, Self-esteem, and Coping with chronic illness Friend is bringing Khdara to have lunch w pt and THEY are looking forward to this MOOD: a little better today but anxiety seems up she is reading a bit more and is heading a book club The Reading List is the name of the current book MEDS: d/c Wellbutrin over time and considering another med an SSRI likely this may be more focused on her somewhat unusual low affect that is unlike her historically : can get irritable moods and then back Wt lost 27 lbs over 3 months and feels about the same eating a bit better and getting more protein along with more liquids since a little dehydrated Feet and legs are a bit better and she is using lotion Kennedi is coming in Thursday for a couple wks with the baby and stay w her brother Pt is delighted Living situation: about 3 yrs now and still not yet fully up to speed new game she likes: FARKLE 6 dice pt trying to get out a bit now that the weather is getting better MEDICATIONS: Per medical record: Current Outpatient Medications Medication Sig albuterol (PROVENTIL) 2.5 mg /3 mL (0.083 %) nebulizer solution 3 mL as needed Inhalation every 6 hrs furosemide (LASIX) 80 mg tablet Take 1 tablet by mouth once daily. hydrOXYchloroQUINE (PLAQUENIL) 200 mg tablet mupirocin (BACTROBAN) 2 % ointment Apply to affected area once daily. APPLY TO AFFECTED AREA prazosin (MINIPRESS) 1 mg cap folic acid 1 mg tablet Take 1 tablet by mouth every afternoon. nitrofurantoin monohydrate and macrocrystal (MACROBID) 100 mg capsule escitalopram oxalate (LEXAPRO) 10 mg tablet Take 10 mg by mouth once daily. escitalopram oxalate (LEXAPRO) 5 mg tablet take 1 tablet by mouth once daily with 10 milligram to EQUAL 15MG FOR ANXIETY Nystatin, Bulk, 10 billion unit powd Apply to affected area. traZODone (DESYREL) 50 mg tablet Take 50 mg by mouth every evening. buPROPion XL (WELLBUTRIN XL) 300 mg 24 hr tablet 300 mg once daily. metFORMIN ER (GLUCOPHAGE XR) 500 mg 24 hr tablet Take 500 mg by mouth twice daily. levothyroxine (SYNTHROID) 150 mcg tablet Take 1 tablet by mouth once daily. Take on empty stomach. For thyroid HYDROcodone-acetaminophen (NORCO) 5-325 mg per tablet Take 1 tablet by mouth every 6 hours as needed for pain for up to 30 days. warfarin (COUMADIN) 5 mg tablet 7.5 mg Mon/Fri, 5 mg all other days or as directed mirtazapine (REMERON) 30 mg tablet Take 1 tablet by mouth daily at bedtime. (Patient not taking: No sig reported) gabapentin (NEURONTIN) 600 mg tablet Take 1 tablet by mouth three times daily for 180 days. cyanocobalamin 1,000 mcg/mL Inject 1 mL intramuscularly once every month. nitroglycerin sublingual (NITROQUICK) 0.4 mg SL tablet Dissolve 1 tablet under the tongue every 5 minutes as needed for chest pain. FOR CHEST PAIN. IF NO RELIEF CALL 911 ramipril (ALTACE) 5 mg capsule Take 1 capsule by mouth once daily. metoprolol succinate ER (TOPROL XL) 100 mg Take 1 tablet by mouth once daily. Syringe with Needle, Disp, (MONOJECT TB SAFETY SYRINGE) 1 mL 25 gauge x 5/8" Use as directed once a month. blood sugar diagnostic (Revel Touch VERIO TEST STRIPS) test strip Test blood sugar(s) 3 times daily. Dx: Other DM Code E11.42 Insulin: Yes ketoconazole (NIZORAL) 2 % cream Apply 1 application to affected area once daily. Syringe with Needle, Safety 3 mL 23 gauge x 1" 1 Each as directed. Use one each with Vitamin B 12 injections weekly for 3 doses and then monthly. fluticasone (FLONASE) 50 mcg/actuation nasal spray Use 2 Sprays in each nostril once daily. Rinse mouth after use. Magnesium Oxide 500 mg tab Take 500 mg by mouth once daily. Cholecalciferol, Vitamin D3, 50 mcg (2,000 unit) cap Take 1 capsule by mouth once daily. calcium car (more content not included)... [facility] 08-05-2024 Note HNO ID: [id number] Author: GILMER COTTON, PhD Service: ? Author Type: Psychologist Type: Progress Notes Filed: 08/05/2024 12:29 Note Text: [facility] Department Progress Note Randolph L Johan 08/05/2024 [id number] PROVIDER: Gilmer Cotton, PhD CPT Code: Time: 50 minutes Setting: Patient seen in person Parties Present: Patient Treatment Modality/Interventions: Cognitive Behavioral Reassurance/Supportive Insight oriented Problem solving Processing of emotions Psychoeducation MENTAL STATUS: Mood: variable Affect: mood-congruent Thoughts/Associations:goal directed Suicidal/Homicidal Ideation: None expressed or evidenced Other Prominent Symptoms: Therapy Focus/Content of Session: Self-care, Stress management, Mood/affect regulation, Self-esteem, and Coping with chronic illness MOOD: a bit dysthymic... likely all the changes of health care and living situation where she resides Pt likes the group of caregivers that are helping her at present MEDS: wonder if a review might help her mood a bit Generally stable and ok in spite of the above and anticipating more great grandchildren ... seems like he is a bit downhill cognitively over time MEDICATIONS: Per medical record: Current Outpatient Medications Medication Sig albuterol (PROVENTIL) 2.5 mg /3 mL (0.083 %) nebulizer solution 3 mL as needed Inhalation every 6 hrs furosemide (LASIX) 80 mg tablet Take 1 tablet by mouth once daily. hydrOXYchloroQUINE (PLAQUENIL) 200 mg tablet mupirocin (BACTROBAN) 2 % ointment Apply to affected area once daily. APPLY TO AFFECTED AREA prazosin (MINIPRESS) 1 mg cap folic acid 1 mg tablet Take 1 tablet by mouth every afternoon. nitrofurantoin monohydrate and macrocrystal (MACROBID) 100 mg capsule escitalopram oxalate (LEXAPRO) 10 mg tablet Take 10 mg by mouth once daily. escitalopram oxalate (LEXAPRO) 5 mg tablet take 1 tablet by mouth once daily with 10 milligram to EQUAL 15MG FOR ANXIETY Nystatin, Bulk, 10 billion unit powd Apply to affected area. traZODone (DESYREL) 50 mg tablet Take 50 mg by mouth every evening. buPROPion XL (WELLBUTRIN XL) 300 mg 24 hr tablet 300 mg once daily. metFORMIN ER (GLUCOPHAGE XR) 500 mg 24 hr tablet Take 500 mg by mouth twice daily. levothyroxine (SYNTHROID) 150 mcg tablet Take 1 tablet by mouth once daily. Take on empty stomach. For thyroid HYDROcodone-acetaminophen (NORCO) 5-325 mg per tablet Take 1 tablet by mouth every 6 hours as needed for pain for up to 30 days. warfarin (COUMADIN) 5 mg tablet 7.5 mg Mon/Fri, 5 mg all other days or as directed mirtazapine (REMERON) 30 mg tablet Take 1 tablet by mouth daily at bedtime. (Patient not taking: No sig reported) gabapentin (NEURONTIN) 600 mg tablet Take 1 tablet by mouth three times daily for 180 days. cyanocobalamin 1,000 mcg/mL Inject 1 mL intramuscularly once every month. nitroglycerin sublingual (NITROQUICK) 0.4 mg SL tablet Dissolve 1 tablet under the tongue every 5 minutes as needed for chest pain. FOR CHEST PAIN. IF NO RELIEF CALL 911 ramipril (ALTACE) 5 mg capsule Take 1 capsule by mouth once daily. metoprolol succinate ER (TOPROL XL) 100 mg Take 1 tablet by mouth once daily. Syringe with Needle, Disp, (MONOJECT TB SAFETY SYRINGE) 1 mL 25 gauge x 5/8" Use as directed once a month. blood sugar diagnostic (BrainLABTOUCH VERIO TEST STRIPS) test strip Test blood sugar(s) 3 times daily. Dx: Other DM Code E11.42 Insulin: Yes ketoconazole (NIZORAL) 2 % cream Apply 1 application to affected area once daily. Syringe with Needle, Safety 3 mL 23 gauge x 1" 1 Each as directed. Use one each with Vitamin B 12 injections weekly for 3 doses and then monthly. fluticasone (FLONASE) 50 mcg/actuation nasal spray Use 2 Sprays in each nostril once daily. Rinse mouth after use. Magnesium Oxide 500 mg tab Take 500 mg by mouth once daily. Cholecalciferol, Vitamin D3, 50 mcg (2,000 unit) cap Take 1 capsule by mouth once daily. calcium carbonate/vitamin D2 (CALCIUM 600 WITH VITAMIN D ORAL) Take 1 tablet by mouth once daily. melatonin 10 mg tab Take 1 tablet by mouth daily at bedtime. aspirin, enteric coated (ASPIR-LOW) 81 mg EC tablet Take 1 tablet by mouth once daily. MULTIVITAMIN ORAL Take by mouth. OTC One A Day Womens Spirometers and Accessories gui Incentive spirometer. Deep breathe hourly while awake. PT/INR test meter (SpotsterGUCHEK XS PRO) misc Check Protime weekly. Dx: pulmonary embolism, V58.61 COMPOUNDED PRESCRIPTION Hospital bed all electric with adjustable head and feet. 415.19; 343.8; 782.3; 787.91; V43.65 No current facility-administered medications for this visit. Psychiatric Medication Issues: see med record DIAGNOSIS: Hewett I: Depressive Disorder recurrent Morbidly Obese CP Hewett II : Deferred Hewett III : See medical history Hewett IV: Health Hewett V: GAF 60-51 Moderate symptoms or moderate difficulty in social, o (more content not included)... [facility] 07-10-2024 Emergency department Note Pt resting quietly in bed with blanket over face. Respirations even and non labored. No coughing noted at this time. Await transport by [facility]. [facility] 07-10-2024 Emergency department Note Pt resting quietly in bed with blanket over face. Respirations even and non labored. No coughing noted at this time. Await transport by [facility]. Dr. Jha at bedside. Dr. Jha to bedside. Pt given water. EMERGENCY DEPARTMENT ENCOUNTER Pt Name: Randolph Hunter Birthdate 1950 Date of evaluation: 07/09/2024 ED Provider: Mali Jha MD CHIEF COMPLAINT Chief Complaint Patient presents with Cough 2 days- productive worse after eating a pizza roll HISTORY OF PRESENT ILLNESS (Location/Symptom, Timing/Onset, Context/Setting, Quality, Duration, Modifying Factors, Severity) Note limiting factors. I wore appropriate PPE for the entirety of this encounter. HPI Randolph Hunter is a 73 y.o. female who presents to the emergency department with chief complaint of a worsening cough. The patient states that she has had a cough for the past 2 days, that worsened after eating a pizza roll. She states that she feels like she has a sensation of something being stuck in her throat, but that started before the pizza rolls today. She denies any fevers or chills. Nursing Notes were reviewed. Limitations to history: None Outside historians: None, EMS, and Significant other REVIEW OF SYSTEMS Review of Systems Pertinent positives and negatives as per HPI. PAST MEDICAL HISTORY Past Medical History: Diagnosis Date Anemia of chronic disease Asthma B12 deficiency Brachial neuritis CAD (coronary artery disease) Cerebral palsy (HCC) Depression Diabetes (HCC) Fatty liver Frequent falls HLD (hyperlipidemia) Hyperparathyroidism (HCC) Lupus Migraine headache with aura Neuropathy Obesity Pulmonary emboli (HCC) Pulmonary embolism (HCC) Systemic lupus erythematosus (CMS/HCC) (HCC) Type 2 diabetes mellitus (HCC) SURGICAL HISTORY Past Surgical History: Procedure Laterality Date TOTAL KNEE ARTHROPLASTY Right CURRENT MEDICATIONS Previous Medications ALPHA TOCOPHEROL (VITAMIN E) 400 UNITS CAPSULE Take 400 Units by mouth in the morning and 400 Units in the evening. ASPIRIN 81 MG EC TABLET Take 81 mg by mouth daily. BUPROPION SR (WELLBUTRIN SR) 150 MG 12 HR TABLET Take 150 mg by mouth daily. CHOLECALCIFEROL (VITAMIN D-3) 50 MCG (1999) CAPSULE Take 2,000 Units by mouth daily. CYANOCOBALAMIN (VITAMIN B-12) 500 MCG TABLET Take 500 mcg by mouth daily. ESCITALOPRAM (LEXAPRO) 10 MG TABLET Take 10 mg by mouth in the morning. ESCITALOPRAM (LEXAPRO) 5 MG TABLET take 1 tablet by mouth once daily with 10 milligram to EQUAL 15MG FOR ANXIETY FLUTICASONE (FLONASE) 50 MCG/ACT NASAL SPRAY Administer 1 spray into each nostril daily. FOLIC ACID (FOLVITE) 1 MG TABLET Take 1 tablet by mouth daily. GABAPENTIN (NEURONTIN) 300 MG CAPSULE 1 tablet Orally three ti,es a day HYDROCODONE-ACETAMINOPHEN (NORCO) 5-325 MG TABLET Take 1 tablet by mouth every 6 hours as needed. HYDROXYCHLOROQUINE (PLAQUENIL) 200 MG TABLET Take 1 tablet by mouth in the morning and 1 tablet in the evening. HYDROXYZINE PAMOATE (VISTARIL) 25 MG CAPSULE Take 25 mg by mouth in the morning and 25 mg in the evening. LEVOTHYROXINE (SYNTHROID, LEVOXYL) 150 MCG TABLET Take 150 mcg by mouth daily. MAGNESIUM OXIDE 500 MG TABLET Take by mouth. METFORMIN (GLUCOPHAGE) 500 MG TABLET Take 500 mg by mouth in the morning and 500 mg in the evening. Take with meals. METOPROLOL SUCCINATE XL (TOPROL-XL) 100 MG 24 HR TABLET Take 100 mg by mouth daily at bedtime. MUPIROCIN (BACTROBAN) 2 % OINTMENT Apply topically daily. NITROGLYCERIN (NITROSTAT) 0.[address] under the tongue. NYSTATIN (MYCOSTATIN) 560544 UNIT/GM POWDER Apply topically 2 times daily. NYSTATIN (MYCOSTATIN) CREAM Apply topically 3 times daily. PRAZOSIN (MINIPRESS) 1 MG CAPSULE RAMIPRIL (ALTACE) 5 MG CAPSULE Take 1 capsule by mouth Every 24 hours. TRAZODONE (DESYREL) 50 MG TABLET Take 50 mg by mouth every evening. WARFARIN (COUMADIN) 5 MG TABLET Take 1 tablet by mouth daily. ALLERGIES Promethazine-phenylephrine, 5-alpha reductase inhibitors, Adhesive [tape], Ciprofloxacin, E-mycin [erythromycin], Keflex [cephalexin], Naproxen, Paxil [paroxetine], Penicillins, Phenergan [promethazine], Statins, and Wound dressing adhesive FAMILY HISTORY No family history on file. SOCIAL HISTORY Social History Socioeconomic History Marital status: Tobacco Use Smoking status: Never Smokeless tobacco: Never Vaping Use Vaping status: Never Used Substance and Sexual Activity Alcohol use: Yes Comment: occasional Drug use: Never Social History Narrative Merged History Encounter Social Drivers of Health Financial Resource Strain: Low Risk (01/02/2020) Received from [facility] Overall Financial Resource Strain (CARDIA) Difficulty of Paying Living Expenses: Not very hard Food Insecurity: Food Insecurity Present (01/02/2020) Received from [facility] Hunger Vital Sign Worried About Running Out of Food in the Last Year: Sometimes true Ran Out of Food in the Last Year: Never true Transportation Needs: Unmet Transportation Needs (01/02/2020) Received from [facility] PRAPARE - Transportation Lack of Transportation (Medical): Yes Lack of Transportation (Non-Medical): Yes Physical Activity: Inactive (01/02/2020) Received from [facility] Exercise Vital Sign Days of Exercise per Week: 0 days Minutes of Exercise per Session: 0 min Stress: Stress Concern Present (01/02/2020) Received from [facility] [employer] [place] [facility] [employer] - Occupational Stress Questionnaire Feeling of Stress : Rather much Social Connections: Moderately Isolated (01/02/2020) Received from [facility] Social Connection and Isolation Panel [NHANES] Frequency of Communication with Friends and Family: More than three times a week Frequency of Social Gatherings with Friends and Family: Never Attends Holiness Services: Never Active Member of Clubs or Organizations: No Attends Club or Organization Meetings: Patient declined Marital Status: SCREENINGS PHYSICAL EXAM ED Triage Vitals Temp Heart Rate Resp BP 07/09/24232007/09/24232307/09/24232307/09/242323 36.9 C (98.4 F) 96 20 99/66 SpO2 Temp Source Heart Rate Source Patient Position 07/09/24232307/09/242320 -- -- 98 % Oral BP Location FiO2 (%) -- -- Physical Exam Vitals and nursing note reviewed. Constitutional: General: She is not in acute distress. Appearance: She is well-developed. HENT: Head: Normocephalic and atraumatic. Eyes: Conjunctiva/sclera: Conjunctivae normal. Neck: Comments: No TTP or masses palpated to the anterior or lateral neck Cardiovascular: Rate and Rhythm: Normal rate and regular rhythm. Heart sounds: No murmur heard. Pulmonary: Effort: Pulmonary effort is normal. No respiratory distress. Breath sounds: Normal breath sounds. Abdominal: Palpations: Abdomen is soft. Musculoskeletal: Cervical back: Neck supple. Skin: General: Skin is warm and dry. Capillary Refill: Capillary refill takes less than 2 seconds. Neurological: Mental Status: She is alert. Psychiatric: Mood and Affect: Mood normal. DIAGNOSTIC RESULTS Procedures/EKG: Interpretation per the Radiologist below, if available at the time of this note: XR chest 1 view Final Result 1. No acute consolidation. Report Dictated on Electronically Signed By: Velasquez Nova MD Electronically Signed Date/Time: 07/09/2024 11:45 PM EST ED BEDSIDE ULTRASOUND: Performed by ED Physician - none LABS: Labs Reviewed - No data to display All other labs were within normal range or not returned as of this dictation. EMERGENCY DEPARTMENT COURSE and DIFFERENTIAL DIAGNOSIS/MDM: Vitals: Vitals: 07/09/24 2321 07/09/24 2324 BP: 99/66 Pulse: 96 Resp: 20 Temp: 36.9 C (98.4 F) TempSrc: Oral SpO2: 98% Weight: 97.1 kg (214 lb) Height: 1.575 m (5' 2") The patient presented with a chief complaint of a worsening cough. The differential diagnosis associated with this patient's presentation includes but is not limited to: Presentation concerning for esophageal foreign body versus aspiration versus pneumonia versus viral illness. Our workup consisted of ordering/reviewing: chest x-ray. I reviewed external records from: [facility] demonstrating 62 prescriptions, to include gabapentin and [place] Chest x-ray negative for consolidation upon my independent interpretation. Patient still coughing after glucagon but coughing ceased after Decadron. The patient will be discharged The patient is in agreement with this plan. Diagnoses as of 07/10/24 0203 Acute cough Medications glucagon (human recombinant) injection 1 mg (1 mg IntraMUSCular Given 07/09/24 2340) dexAMETHasone (PF) (Decadron) injection 8 mg (8 mg Oral Given 07/10/24 0024) REVAL: CRITICAL CARE TIME None CONSULTS: None PROCEDURES: Unless otherwise noted below, none Procedures FINAL IMPRESSION 1. Acute cough DISPOSITION Discharge 07/10/2024 12:55:44 AM [place] [facility] [place] [address], [place] [address] Schedule an appointment as soon as possible for a visit in 3 days DISCHARGE MEDICATIONS: New Prescriptions BENZONATATE (TESSALON) 100 MG CAPSULE Take 1 capsule (100 mg) by mouth every 8 hours for 7 days. Do not crush or chew. (Comment: Please note this report has been produced using speech recognition software and may contain errors related to that system including errors in grammar, punctuation, and spelling, as well as words and phrases that may be inappropriate. If there are any questions or concerns please feel free to contact the dictating provider for clarification.) Mali Jha MD (electronically signed) Emergency Medicine Provider Александр Jha MD 07/10/24 0203 documented in this encounter [facility] 07-10-2024 Hospital Discharge instructions Александр Jha MD - 07/10/2024 12:56 AM EST If the Tessalon Perles do not work, you may purchase cough syrup [id number]. Please return to the emergency department if your symptoms change or worsen. The following attachments cannot be sent through Care Everywhere.Cough in Adults (Stateless)documented in this encounter [facility] 07-10-[address] Jha at bedside. [facility] 07-09-[address] Jha to bedside. Pt given water. [facility] 07-09-2024 Physician Emergency department Note EMERGENCY DEPARTMENT ENCOUNTER Pt Name: Randolph Hunter Birthdate 1950 Date of evaluation: 07/09/2024 ED Provider: Mali Jha MD CHIEF COMPLAINT Chief Complaint Patient presents with Cough 2 days- productive worse after eating a pizza roll HISTORY OF PRESENT ILLNESS (Location/Symptom, Timing/Onset, Context/Setting, Quality, Duration, Modifying Factors, Severity) Note limiting factors. I wore appropriate PPE for the entirety of this encounter. HPI Randolph Hunter is a 73 y.o. female who presents to the emergency department with chief complaint of a worsening cough. The patient states that she has had a cough for the past 2 days, that worsened after eating a pizza roll. She states that she feels like she has a sensation of something being stuck in her throat, but that started before the pizza rolls today. She denies any fevers or chills. Nursing Notes were reviewed. Limitations to history: None Outside historians: None, EMS, and Significant other REVIEW OF SYSTEMS Review of Systems Pertinent positives and negatives as per HPI. PAST MEDICAL HISTORY Past Medical History: Diagnosis Date Anemia of chronic disease Asthma B12 deficiency Brachial neuritis CAD (coronary artery disease) Cerebral palsy (HCC) Depression Diabetes (HCC) Fatty liver Frequent falls HLD (hyperlipidemia) Hyperparathyroidism (HCC) Lupus Migraine headache with aura Neuropathy Obesity Pulmonary emboli (HCC) Pulmonary embolism (HCC) Systemic lupus erythematosus (CMS/HCC) (HCC) Type 2 diabetes mellitus (HCC) SURGICAL HISTORY Past Surgical History: Procedure Laterality Date TOTAL KNEE ARTHROPLASTY Right CURRENT MEDICATIONS Previous Medications ALPHA TOCOPHEROL (VITAMIN E) 400 UNITS CAPSULE Take 400 Units by mouth in the morning and 400 Units in the evening. ASPIRIN 81 MG EC TABLET Take 81 mg by mouth daily. BUPROPION SR (WELLBUTRIN SR) 150 MG 12 HR TABLET Take 150 mg by mouth daily. CHOLECALCIFEROL (VITAMIN D-3) 50 MCG (1999 UT) CAPSULE Take 2,000 Units by mouth daily. CYANOCOBALAMIN (VITAMIN B-12) 500 MCG TABLET Take 500 mcg by mouth daily. ESCITALOPRAM (LEXAPRO) 10 MG TABLET Take 10 mg by mouth in the morning. ESCITALOPRAM (LEXAPRO) 5 MG TABLET take 1 tablet by mouth once daily with 10 milligram to EQUAL 15MG FOR ANXIETY FLUTICASONE (FLONASE) 50 MCG/ACT NASAL SPRAY Administer 1 spray into each nostril daily. FOLIC ACID (FOLVITE) 1 MG TABLET Take 1 tablet by mouth daily. GABAPENTIN (NEURONTIN) 300 MG CAPSULE 1 tablet Orally three ti,es a day HYDROCODONE-ACETAMINOPHEN (NORCO) 5-325 MG TABLET Take 1 tablet by mouth every 6 hours as needed. HYDROXYCHLOROQUINE (PLAQUENIL) 200 MG TABLET Take 1 tablet by mouth in the morning and 1 tablet in the evening. HYDROXYZINE PAMOATE (VISTARIL) 25 MG CAPSULE Take 25 mg by mouth in the morning and 25 mg in the evening. LEVOTHYROXINE (SYNTHROID, LEVOXYL) 150 MCG TABLET Take 150 mcg by mouth daily. MAGNESIUM OXIDE 500 MG TABLET Take by mouth. METFORMIN (GLUCOPHAGE) 500 MG TABLET Take 500 mg by mouth in the morning and 500 mg in the evening. Take with meals. METOPROLOL SUCCINATE XL (TOPROL-XL) 100 MG 24 HR TABLET Take 100 mg by mouth daily at bedtime. MUPIROCIN (BACTROBAN) 2 % OINTMENT Apply topically daily. NITROGLYCERIN (NITROSTAT) 0.[address] under the tongue. NYSTATIN (MYCOSTATIN) 799177 UNIT/GM POWDER Apply topically 2 times daily. NYSTATIN (MYCOSTATIN) CREAM Apply topically 3 times daily. PRAZOSIN (MINIPRESS) 1 MG CAPSULE RAMIPRIL (ALTACE) 5 MG CAPSULE Take 1 capsule by mouth Every 24 hours. TRAZODONE (DESYREL) 50 MG TABLET Take 50 mg by mouth every evening. WARFARIN (COUMADIN) 5 MG TABLET Take 1 tablet by mouth daily. ALLERGIES Promethazine-phenylephrine, 5-alpha reductase inhibitors, Adhesive [tape], Ciprofloxacin, E-mycin [erythromycin], Keflex [cephalexin], Naproxen, Paxil [paroxetine], Penicillins, Phenergan [promethazine], Statins, and Wound dressing adhesive FAMILY HISTORY No family history on file. SOCIAL HISTORY Social History Socioeconomic History Marital status: Tobacco Use Smoking status: Never Smokeless tobacco: Never Vaping Use Vaping status: Never Used Substance and Sexual Activity Alcohol use: Yes Comment: occasional Drug use: Never Social History Narrative Merged History Encounter Social Drivers of Health Financial Resource Strain: Low Risk (01/02/2020) [facility] Overall Financial Resource Strain (CARDIA) Difficulty of Paying Living Expenses: Not very hard Food Insecurity: Food Insecurity Present (01/02/2020) Received from [facility] Hunger Vital Sign Worried About Running Out of Food in the Last Year: Sometimes true Ran Out of Food in the Last Year: Never true Transportation Needs: Unmet Transportation Needs (01/02/2020) Received from [facility] PRAPARE - Transportation Lack of Transportation (Medical): Yes Lack of Transportation (Non-Medical): Yes Physical Activity: Inactive (01/02/2020) Received from [facility] Exercise Vital Sign Days of Exercise per Week: 0 days Minutes of Exercise per Session: 0 min Stress: Stress Concern Present (01/02/2020) Received from [facility] [employer] [place] [facility] [employer] - Occupational Stress Questionnaire Feeling of Stress : Rather much Social Connections: Moderately Isolated (01/02/2020) Received from [facility] Social Connection and Isolation Panel [NHANES] Frequency of Communication with Friends and Family: More than three times a week Frequency of Social Gatherings with Friends and Family: Never Attends Holiness Services: Never Active Member of Clubs or Organizations: No Attends Club or Organization Meetings: Patient declined Marital Status: SCREENINGS PHYSICAL EXAM ED Triage Vitals Temp Heart Rate Resp BP 07/09/24232007/09/24232307/09/24232307/09/242323 36.9 C (98.4 F) 96 20 99/66 SpO2 Temp Source Heart Rate Source Patient Position 07/09/24232307/09/242320 -- -- 98 % Oral BP Location FiO2 (%) -- -- Physical Exam Vitals and nursing note reviewed. Constitutional: General: She is not in acute distress. Appearance: She is well-developed. HENT: Head: Normocephalic and atraumatic. Eyes: Conjunctiva/sclera: Conjunctivae normal. Neck: Comments: No TTP or masses palpated to the anterior or lateral neck Cardiovascular: Rate and Rhythm: Normal rate and regular rhythm. Heart sounds: No murmur heard. Pulmonary: Effort: Pulmonary effort is normal. No respiratory distress. Breath sounds: Normal breath sounds. Abdominal: Palpations: Abdomen is soft. Musculoskeletal: Cervical back: Neck supple. Skin: General: Skin is warm and dry. Capillary Refill: Capillary refill takes less than 2 seconds. Neurological: Mental Status: She is alert. Psychiatric: Mood and Affect: Mood normal. DIAGNOSTIC RESULTS Procedures/EKG: Interpretation per the Radiologist below, if available at the time of this note: XR chest 1 view Final Result 1. No acute consolidation. Report Dictated on Electronically Signed By: Velasquez Nova MD Electronically Signed Date/Time: 07/09/2024 11:45 PM EST ED BEDSIDE ULTRASOUND: Performed by ED Physician - none LABS: Labs Reviewed - No data to display All other labs were within normal range or not returned as of this dictation. EMERGENCY DEPARTMENT COURSE and DIFFERENTIAL DIAGNOSIS/MDM: Vitals: Vitals: 07/09/24 2321 07/09/242323 BP: 99/66 Pulse: 96 Resp: 20 Temp: 36.9 C (98.4 F) TempSrc: Oral SpO2: 98% Weight: 97.1 kg (214 lb) Height: 1.575 m (5' 2") The patient presented with a chief complaint of a worsening cough. The differential diagnosis associated with this patient's presentation includes but is not limited to: Presentation concerning for esophageal foreign body versus aspiration versus pneumonia versus viral illness. Our workup consisted of ordering/reviewing: chest x-ray. I reviewed external records from: [facility] demonstrating 62 prescriptions, to include gabapentin and [place] Chest x-ray negative for consolidation upon my independent interpretation. Patient still coughing after glucagon but coughing ceased after Decadron. The patient will be discharged The patient is in agreement with this plan. Diagnoses as of 07/10/24 0203 Acute cough Medications glucagon (human recombinant) injection 1 mg (1 mg IntraMUSCular Given 07/09/24 2340) dexAMETHasone (PF) (Decadron) injection 8 mg (8 mg Oral Given 07/10/24 0024) REVAL: CRITICAL CARE TIME None CONSULTS: None PROCEDURES: Unless otherwise noted below, none Procedures FINAL IMPRESSION 1. Acute cough DISPOSITION Discharge 07/10/2024 12:55:44 AM [place] [facility] [place]: [address] , [place] [address] Schedule an appointment as soon as possible for a visit in 3 days DISCHARGE MEDICATIONS: New Prescriptions BENZONATATE (TESSALON) 100 MG CAPSULE Take 1 capsule (100 mg) by mouth every 8 hours for 7 days. Do not crush or chew. (Comment: Please note this report has been produced using speech recognition software and may contain errors related to that system including errors in grammar, punctuation, and spelling, as well as words and phrases that may be inappropriate. If there are any questions or concerns please feel free to contact the dictating provider for clarification.) Mali Jha MD (electronically signed) Emergency Medicine Provider Александр Jha MD 07/10/24 0203 [facility] 06-30-2024 Note HNO ID: [id number] Author: GILMER COTTON, PhD Service: ? Author Type: Psychologist Type: Progress Notes Filed: 06/30/2024 11:53 Note Text: [facility] Progress Note Randolph Abiodun Hunter 06/30/2024 [id number] PROVIDER: Gilmer Cotton, PhD CPT Code: Time: 50 minutes Setting: Due to the federal emergency declaration and the need for ongoing mental health services, the following visit was completed virtually and informed consent obtained orally to reduce the risk of COVID-19 exposure. Oral consent to services related to virtual visits was obtained after information was sent via [employer] or read to patient if [employer] not available." Parties Present: Patient Treatment Modality/Interventions: Cognitive Behavioral Reassurance/Supportive Insight oriented Problem solving Processing of emotions Psychoeducation MENTAL STATUS: Mood: variable, dysthymic Affect: mood-congruent Thoughts/Associations:goal directed Suicidal/Homicidal Ideation: None expressed or evidenced Other Prominent Symptoms: Therapy Focus/Content of Session: Self-care, Stress management, Mood/affect regulation, Family relationships, Self-esteem, and Coping with chronic illness Blood sugar has been low only on metformin cant get INR strips to work even w Nurse help eventually got it MOOD: dysthymic situational depression since after a year too many things havent gotten up to speed since New Years the accumulation of stressors has been getting to her NOW she is volunteering to be a leader to work w the Meetings and can work w the [employer] That may likely help her mood in that she might have a sense of efficacy vs feeling nothing is working some med changes.... pt will send them to me MEDICATIONS: Per medical record: Current Outpatient Medications Medication Sig albuterol (PROVENTIL) 2.5 mg /3 mL (0.083 %) nebulizer solution 3 mL as needed Inhalation every 6 hrs furosemide (LASIX) 80 mg tablet Take 1 tablet by mouth once daily. hydrOXYchloroQUINE (PLAQUENIL) 200 mg tablet mupirocin (BACTROBAN) 2 % ointment Apply to affected area once daily. APPLY TO AFFECTED AREA prazosin (MINIPRESS) 1 mg cap folic acid 1 mg tablet Take 1 tablet by mouth every afternoon. nitrofurantoin monohydrate and macrocrystal (MACROBID) 100 mg capsule escitalopram oxalate (LEXAPRO) 10 mg tablet Take 10 mg by mouth once daily. escitalopram oxalate (LEXAPRO) 5 mg tablet take 1 tablet by mouth once daily with 10 milligram to EQUAL 15MG FOR ANXIETY Nystatin, Bulk, 10 billion unit powd Apply to affected area. traZODone (DESYREL) 50 mg tablet Take 50 mg by mouth every evening. buPROPion XL (WELLBUTRIN XL) 300 mg 24 hr tablet 300 mg once daily. metFORMIN ER (GLUCOPHAGE XR) 500 mg 24 hr tablet Take 500 mg by mouth twice daily. levothyroxine (SYNTHROID) 150 mcg tablet Take 1 tablet by mouth once daily. Take on empty stomach. For thyroid HYDROcodone-acetaminophen (NORCO) 5-325 mg per tablet Take 1 tablet by mouth every 6 hours as needed for pain for up to 30 days. warfarin (COUMADIN) 5 mg tablet 7.5 mg Mon/Fri, 5 mg all other days or as directed mirtazapine (REMERON) 30 mg tablet Take 1 tablet by mouth daily at bedtime. (Patient not taking: No sig reported) gabapentin (NEURONTIN) 600 mg tablet Take 1 tablet by mouth three times daily for 180 days. cyanocobalamin 1,000 mcg/mL Inject 1 mL intramuscularly once every month. nitroglycerin sublingual (NITROQUICK) 0.4 mg SL tablet Dissolve 1 tablet under the tongue every 5 minutes as needed for chest pain. FOR CHEST PAIN. IF NO RELIEF CALL 911 ramipril (ALTACE) 5 mg capsule Take 1 capsule by mouth once daily. metoprolol succinate ER (TOPROL XL) 100 mg Take 1 tablet by mouth once daily. Syringe with Needle, Disp, (MONOJECT TB SAFETY SYRINGE) 1 mL 25 gauge x 5/8" Use as directed once a month. blood sugar diagnostic (BrainLABTOUCH VERIO TEST STRIPS) test strip Test blood sugar(s) 3 times daily. Dx: Other DM Code E11.42 Insulin: Yes ketoconazole (NIZORAL) 2 % cream Apply 1 application to affected area once daily. Syringe with Needle, Safety 3 mL 23 gauge x 1" 1 Each as directed. Use one each with Vitamin B 12 injections weekly for 3 doses and then monthly. fluticasone (FLONASE) 50 mcg/actuation nasal spray Use 2 Sprays in each nostril once daily. Rinse mouth after use. Magnesium Oxide 500 mg tab Take 500 mg by mouth once daily. Cholecalciferol, Vitamin D3, 50 mcg (2,000 unit) cap Take 1 capsule by mouth once daily. calcium carbonate/vitamin D2 (CALCIUM 600 WITH VITAMIN D ORAL) Take 1 tablet by mouth once daily. melatonin 10 mg tab Take 1 tablet by mouth daily at bedtime. aspirin, enteric coated (ASPIR-LOW) 81 mg EC tablet Take 1 tablet by mouth once daily. MULTIVITAMIN ORAL Take by mouth. OTC One A Day Womens Spirometers and Accessories gui Incentive spirometer. Deep breathe hourly while awake. PT/INR test meter (CO (more content not included)... [facility] 05-02-2024 Note HNO ID: [id number] Author: GILMER COTTON, PhD Service: ? Author Type: Psychologist Type: Progress Notes Filed: 05/02/2024 12:11 Note Text: [facility] Progress Note Randolph Hunter 05/02/2024 [id number] PROVIDER: Gilmer Cotton, PhD CPT Code: Time: 50 minutes Setting: Patient seen in person Parties Present: Patient Treatment Modality/Interventions: Cognitive Behavioral Reassurance/Supportive Insight oriented Problem solving Psychoeducation MENTAL STATUS: Mood: variable Affect: mood-congruent Thoughts/Associations:goal directed Suicidal/Homicidal Ideation: None expressed or evidenced Other Prominent Symptoms: Therapy Focus/Content of Session: Self-care, Stress management, Mood/affect regulation, and Self-esteem Pt a bit depressed but more minimally because of lots of little stressors ie elevators need fixed etc daughter is here now and has a job... awaiting court not hungry very often and reading a bit less .. suggesting some depression but seems mostly situational upon review stable MEDICATIONS: Per medical record: Current Outpatient Medications Medication Sig albuterol (PROVENTIL) 2.5 mg /3 mL (0.083 %) nebulizer solution 3 mL as needed Inhalation every 6 hrs furosemide (LASIX) 80 mg tablet Take 1 tablet by mouth once daily. hydrOXYchloroQUINE (PLAQUENIL) 200 mg tablet mupirocin (BACTROBAN) 2 % ointment Apply to affected area once daily. APPLY TO AFFECTED AREA prazosin (MINIPRESS) 1 mg cap folic acid 1 mg tablet Take 1 tablet by mouth every afternoon. nitrofurantoin monohydrate and macrocrystal (MACROBID) 100 mg capsule escitalopram oxalate (LEXAPRO) 10 mg tablet Take 10 mg by mouth once daily. escitalopram oxalate (LEXAPRO) 5 mg tablet take 1 tablet by mouth once daily with 10 milligram to EQUAL 15MG FOR ANXIETY Nystatin, Bulk, 10 billion unit powd Apply to affected area. traZODone (DESYREL) 50 mg tablet Take 50 mg by mouth every evening. buPROPion XL (WELLBUTRIN XL) 300 mg 24 hr tablet 300 mg once daily. metFORMIN ER (GLUCOPHAGE XR) 500 mg 24 hr tablet Take 500 mg by mouth twice daily. levothyroxine (SYNTHROID) 150 mcg tablet Take 1 tablet by mouth once daily. Take on empty stomach. For thyroid HYDROcodone-acetaminophen (NORCO) 5-325 mg per tablet Take 1 tablet by mouth every 6 hours as needed for pain for up to 30 days. warfarin (COUMADIN) 5 mg tablet 7.5 mg Mon/Fri, 5 mg all other days or as directed mirtazapine (REMERON) 30 mg tablet Take 1 tablet by mouth daily at bedtime. (Patient not taking: No sig reported) gabapentin (NEURONTIN) 600 mg tablet Take 1 tablet by mouth three times daily for 180 days. cyanocobalamin 1,000 mcg/mL Inject 1 mL intramuscularly once every month. nitroglycerin sublingual (NITROQUICK) 0.4 mg SL tablet Dissolve 1 tablet under the tongue every 5 minutes as needed for chest pain. FOR CHEST PAIN. IF NO RELIEF CALL 911 ramipril (ALTACE) 5 mg capsule Take 1 capsule by mouth once daily. metoprolol succinate ER (TOPROL XL) 100 mg Take 1 tablet by mouth once daily. Syringe with Needle, Disp, (MONOJECT TB SAFETY SYRINGE) 1 mL 25 gauge x 5/8" Use as directed once a month. blood sugar diagnostic ([employer] Group[employer]CH VERIO TEST STRIPS) test strip Test blood sugar(s) 3 times daily. Dx: Other DM Code E11.42 Insulin: Yes ketoconazole (NIZORAL) 2 % cream Apply 1 application to affected area once daily. Syringe with Needle, Safety 3 mL 23 gauge x 1" 1 Each as directed. Use one each with Vitamin B 12 injections weekly for 3 doses and then monthly. fluticasone (FLONASE) 50 mcg/actuation nasal spray Use 2 Sprays in each nostril once daily. Rinse mouth after use. Magnesium Oxide 500 mg tab Take 500 mg by mouth once daily. Cholecalciferol, Vitamin D3, 50 mcg (2,000 unit) cap Take 1 capsule by mouth once daily. calcium carbonate/vitamin D2 (CALCIUM 600 WITH VITAMIN D ORAL) Take 1 tablet by mouth once daily. melatonin 10 mg tab Take 1 tablet by mouth daily at bedtime. aspirin, enteric coated (ASPIR-LOW) 81 mg EC tablet Take 1 tablet by mouth once daily. MULTIVITAMIN ORAL Take by mouth. OTC One A Day Womens Spirometers and Accessories gui Incentive spirometer. Deep breathe hourly while awake. PT/INR test meter (COAGUCHEK XS PRO) misc Check Protime weekly. Dx: pulmonary embolism, V58.61 COMPOUNDED PRESCRIPTION Hospital bed all electric with adjustable head and feet. 415.19; 343.8; 782.3; 787.91; V43.65 No current facility-administered medications for this visit. Psychiatric Medication Issues: No change from previous appointment DIAGNOSIS: Hewett I: Depressive Disorder recurrent Morbidly Obese CP Hewett II : Deferred Hewett III : See medical history Hewett IV: Health Hewett V: GAF 60-51 Moderate symptoms or moderate difficulty in social, occupational or school functioning TREATMENT PROGRESS/ASSESSMENT: Progressing satisfactorily. TREATMENT PLAN/GOALS: (more content not included)... [facility] 03-04-2024 Note HNO ID: [id number] Author: GILMER COTTON, PhD Service: ? Author Type: Psychologist Type: Progress Notes Filed: 03/04/2024 12:06 Note Text: [facility] Progress Note Randolph Hunter 03/04/2024 [id number] PROVIDER: Gilmer Cotton, PhD CPT Code: Time: 50 minutes Setting: Patient seen in person Parties Present: Patient Treatment Modality/Interventions: Cognitive Behavioral Reassurance/Supportive Problem solving Processing of emotions MENTAL STATUS: Mood: variable Affect: mood-congruent Thoughts/Associations:goal directed Suicidal/Homicidal Ideation: None expressed or evidenced Other Prominent Symptoms: Therapy Focus/Content of Session: Self-care, Mood/affect regulation, Self-esteem, and Coping with chronic illness Pt sending $200 monthly to her daughter in rehab apartment... 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 reading, games ie eucre etc/ MOOD: fairly stable and good recently seems a bit sharper cognitively today A1C is good but INR seems to be a bit volitile PLAN: work w medical community MEDICATIONS: Per medical record: Current Outpatient Medications Medication Sig albuterol (PROVENTIL) 2.5 mg /3 mL (0.083 %) nebulizer solution 3 mL as needed Inhalation every 6 hrs furosemide (LASIX) 80 mg tablet Take 1 tablet by mouth once daily. hydrOXYchloroQUINE (PLAQUENIL) 200 mg tablet mupirocin (BACTROBAN) 2 % ointment Apply to affected area once daily. APPLY TO AFFECTED AREA prazosin (MINIPRESS) 1 mg cap folic acid 1 mg tablet Take 1 tablet by mouth every afternoon. nitrofurantoin monohydrate and macrocrystal (MACROBID) 100 mg capsule escitalopram oxalate (LEXAPRO) 10 mg tablet Take 10 mg by mouth once daily. escitalopram oxalate (LEXAPRO) 5 mg tablet take 1 tablet by mouth once daily with 10 milligram to EQUAL 15MG FOR ANXIETY Nystatin, Bulk, 10 billion unit powd Apply to affected area. traZODone (DESYREL) 50 mg tablet Take 50 mg by mouth every evening. buPROPion XL (WELLBUTRIN XL) 300 mg 24 hr tablet 300 mg once daily. metFORMIN ER (GLUCOPHAGE XR) 500 mg 24 hr tablet Take 500 mg by mouth twice daily. levothyroxine (SYNTHROID) 150 mcg tablet Take 1 tablet by mouth once daily. Take on empty stomach. For thyroid HYDROcodone-acetaminophen (NORCO) 5-325 mg per tablet Take 1 tablet by mouth every 6 hours as needed for pain for up to 30 days. warfarin (COUMADIN) 5 mg tablet 7.5 mg Mon/Fri, 5 mg all other days or as directed mirtazapine (REMERON) 30 mg tablet Take 1 tablet by mouth daily at bedtime. (Patient not taking: No sig reported) gabapentin (NEURONTIN) 600 mg tablet Take 1 tablet by mouth three times daily for 180 days. cyanocobalamin 1,000 mcg/mL Inject 1 mL intramuscularly once every month. nitroglycerin sublingual (NITROQUICK) 0.4 mg SL tablet Dissolve 1 tablet under the tongue every 5 minutes as needed for chest pain. FOR CHEST PAIN. IF NO RELIEF CALL 911 ramipril (ALTACE) 5 mg capsule Take 1 capsule by mouth once daily. metoprolol succinate ER (TOPROL XL) 100 mg Take 1 tablet by mouth once daily. Syringe with Needle, Disp, (MONOJECT TB SAFETY SYRINGE) 1 mL 25 gauge x 5/8" Use as directed once a month. blood sugar diagnostic (Revel Touch VERIO TEST STRIPS) test strip Test blood sugar(s) 3 times daily. Dx: Other DM Code E11.42 Insulin: Yes ketoconazole (NIZORAL) 2 % cream Apply 1 application to affected area once daily. Syringe with Needle, Safety 3 mL 23 gauge x 1" 1 Each as directed. Use one each with Vitamin B 12 injections weekly for 3 doses and then monthly. fluticasone (FLONASE) 50 mcg/actuation nasal spray Use 2 Sprays in each nostril once daily. Rinse mouth after use. Magnesium Oxide 500 mg tab Take 500 mg by mouth once daily. Cholecalciferol, Vitamin D3, 50 mcg (2,000 unit) cap Take 1 capsule by mouth once daily. calcium carbonate/vitamin D2 (CALCIUM 600 WITH VITAMIN D ORAL) Take 1 tablet by mouth once daily. melatonin 10 mg tab Take 1 tablet by mouth daily at bedtime. aspirin, enteric coated (ASPIR-LOW) 81 mg EC tablet Take 1 tablet by mouth once daily. MULTIVITAMIN ORAL Take by mouth. OTC One A Day Womens Spirometers and Accessories gui Incentive spirometer. Deep breathe hourly while awake. PT/INR test meter (COAGUCHEK XS PRO) misc Check Protime weekly. Dx: pulmonary embolism, V58.61 COMPOUNDED PRESCRIPTION Hospital bed all electric with adjustable head and feet. 415.19; 343.8; 782.3; 787.91; V43.65 No current facility-administered medications for this visit. Psychiatric Medication Issues: No change from previous appointment DIAGNOSIS: Hewett I: Depressive Disorder recurrent Morbidly Obese CP Hewett II : Deferred Hewett III : See me (more content not included)... [facility] 02-10-2024 History of Present illness Narrative Assessments Nursing Assessment/Reassessment Score (check box all that apply) Reassessment of Co-morbidities (includes updates in patient status) 10 [x] Wound and Skin Assessment/Reassessment 5 [x] Reassessment of Adherence to Treatment Plan Simple Wound Assessment / Reassessment - one wound 5 [x] Complex Wound Assessment - multiple wounds (# of: 0 ) multiply by 5 to get score 0 [] Dermatologic / Skin Assessment (not related to wound area) 10 [x] Focused Assessment Circumferential Edema Measurements - multi extremities (# of: 0) multiply by 5 to get score 0 [] Nutritional Assessment/Counseling/Intervention 10 [] Lower Extremity Assessment (monofilament, tuning fork, pulses) 5 [] Peripheral Arterial Disease Assessment (using hand-held doppler) 10 [] Ostomy and/or Continence Assessment & Care Incontinence Assessment and Management 10 [] Ostomy Care Assessment and Management (repouching, etc) 20 [] Process Coordination of Care Simple Patient/Family Education for ongoing care 15 [x] Complex (extensive) Patient/Family Education for ongoing of care 20 [] Staff obtains Consent, Records, Test Results/Process Orders 10 [] Staff telephones [facility], Nursing Homes/Clarify Orders 10 [] Routine Transfer to another Facility (non-emergent condition) 10 [] Routine Hospital Admission (non-emergent condition) 10 [] New Admissions/Insurance Auth/Ordering NPWT, skin substitute, etc. 15 [] Emergency Hospital Admission (emergent condition) 20 [] Simple Discharge Coordination 10 [x] Complex (extensive) Discharge Coordination 15 [] Special Needs Pediatric / Minor Patient Management 10 [] Isolation Patient Management 10 [] Hearing/Language/Visual Special Needs 15 [] Assessment of Community Assistance (transportation, discharge planning) 15 [] Additional Assistance / Altered Mentation 15 [] Support Surface Assessment (bed, cushion, seat) 15 [] Interventions Wound Cleansing/Measurement Simple Wound Cleansing - one wound 5 [] Complex Wound Cleansing - multiple wounds (# of: 0) multiply by 5 to get score 0 [] Wound Imaging (photographs - any number of wounds) 5 [x] Wound Tracing (instead of photographs) 5 [] Simple Wound Measurements - one wound 5 [x] Complex Wound Measuremnts - multiple wounds (#of: 0) multiply by 5 to get score 0 [] Wound Dressings Small Wound Dressing - one or multiple wounds (# of: 0 ) multiply by 10 to get score 0 [] Medium Wound Dressing - one or multiple wounds (# of: 0 ) multiply by 15 to get score 0 [] Large Wound Dressing - one or multiple wounds (# of: 0) multiply by 20 to get score 0 [] Application of Medications - topical 5 [x] Application of Medication - injection 10 [] Miscellaneous External Ear Exam Specimen Collection (culture, biopsies, blood, body fluids, etc) 5 [] Specimen/Culture sent or taken to lab for analysis 5 [] Patient Transfer (multiple staff/Carlos lift) 10 [] Simple Staple/Suture Removal (25 or less) 5 [] Complex Staple/Suture Removal (26 or more) 10 [] Hypo/Hyperglycemic Management 10 [] Ankle/Brachial Index (RAÚL) 15 [] Vital Signs 5 [x] Total Points - Use to Determine Level of Clinic Visit 75 Points Willis: Level 1 (1-35 Points) Level 2 (40-75 Points) Level 3 (80-115 Points) Level 4 (120-155 Points) Level 5 (160 or more Points) Subjective Patient ID: Randolph Hunter is a 73 y.o. female who presents for wound care. HPI Here for recheck L plantar foot wound. Feels it is resolved. No drainage. No irritation. Review of Systems Constitutional: Negative. Respiratory: Negative. Cardiovascular: Negative. Skin: Negative for color change, rash and wound. Objective Temp 36.5 C (97.7 F) Physical Exam Vitals reviewed. Constitutional: General: She is not in acute distress. Appearance: Normal appearance. She is not ill-appearing or toxic-appearing. HENT: Ears: Comments: Hearing to conversational voice is normal. Pulmonary: Effort: Pulmonary effort is normal. Breath sounds: No wheezing (No audible wheeze). Skin: General: Skin is warm and dry. Findings: No ecchymosis (no periwound erythema), rash or wound. Comments: No open areas. No local evidence of cellulitis Neurological: Mental Status: She is alert and oriented to person, place, and time. Psychiatric: Thought Content: Thought content normal. 1. Pressure ulcer of right foot, stage 3 (HCC) Pt ed, reassure Reviewed offloading/shear Reviewed protein/nutrition Recheck prn Pt agrees with plan . documented in this encounter [facility] 02-10-2024 Hospital Discharge instructions Maria Isabel Wilson RN - 02/10/2024 10:45 AM EDT Ordered treatment completed and patient is healed. Patient discharged without any issues. All questions answered. Call the clinic if your wound reopens or a new wound appears at [phone]. Edema/Swelling: Avoid standing for long periouds of time. Elevate legs to the level of the heart or above for 30 minutes daily and /or when sitting, a frequency of daily and whenever sitting. Offloading: Keep pressure off of area. Avoid friction and rubbing to prevent wound worsening Nutritious: Follow a nutritious diet. Increase protein in your diet, 100 grams a day to promote wound healing documented in this encounter [facility] 01-29-2024 Note HNO ID: [id number] Author: GILMER COTTON, PhD Service: ? Author Type: Psychologist Type: Progress Notes Filed: 01/29/2024 12:00 Note Text: [facility] Department Progress Note Randolph Hunter 01/29/2024 [id number] PROVIDER: Gilmer Cotton, PhD CPT Code: Time: 50 minutes Setting: Patient seen in person Parties Present: Patient Treatment Modality/Interventions: Cognitive Behavioral Reassurance/Supportive Problem solving Psychoeducation MENTAL STATUS: Mood: variable Affect: mood-congruent Thoughts/Associations:goal directed Suicidal/Homicidal Ideation: None expressed or evidenced Other Prominent Symptoms: Therapy Focus/Content of Session: Self-care, Mood/affect regulation, and Self-esteem MOOD: pt mentally sharp today in spite of issues w foot etc. Daughter is in rehab and they have been sending money PLAN: limit it to 200/mo from here forward : continues to slip a little re cognitive functioning but sounds stable at present Living quarters: the new owners seem responsive but it is slow to get the 2 bldngs w 80 residences each up to speed MEDICATIONS: Per medical record: Current Outpatient Medications Medication Sig albuterol (PROVENTIL) 2.5 mg /3 mL (0.083 %) nebulizer solution 3 mL as needed Inhalation every 6 hrs furosemide (LASIX) 80 mg tablet Take 1 tablet by mouth once daily. hydrOXYchloroQUINE (PLAQUENIL) 200 mg tablet mupirocin (BACTROBAN) 2 % ointment Apply to affected area once daily. APPLY TO AFFECTED AREA prazosin (MINIPRESS) 1 mg cap folic acid 1 mg tablet Take 1 tablet by mouth every afternoon. nitrofurantoin monohydrate and macrocrystal (MACROBID) 100 mg capsule escitalopram oxalate (LEXAPRO) 10 mg tablet Take 10 mg by mouth once daily. escitalopram oxalate (LEXAPRO) 5 mg tablet take 1 tablet by mouth once daily with 10 milligram to EQUAL 15MG FOR ANXIETY Nystatin, Bulk, 10 billion unit powd Apply to affected area. traZODone (DESYREL) 50 mg tablet Take 50 mg by mouth every evening. buPROPion XL (WELLBUTRIN XL) 300 mg 24 hr tablet 300 mg once daily. metFORMIN ER (GLUCOPHAGE XR) 500 mg 24 hr tablet Take 500 mg by mouth twice daily. levothyroxine (SYNTHROID) 150 mcg tablet Take 1 tablet by mouth once daily. Take on empty stomach. For thyroid HYDROcodone-acetaminophen (NORCO) 5-325 mg per tablet Take 1 tablet by mouth every 6 hours as needed for pain for up to 30 days. warfarin (COUMADIN) 5 mg tablet 7.5 mg Mon/Fri, 5 mg all other days or as directed mirtazapine (REMERON) 30 mg tablet Take 1 tablet by mouth daily at bedtime. (Patient not taking: No sig reported) gabapentin (NEURONTIN) 600 mg tablet Take 1 tablet by mouth three times daily for 180 days. cyanocobalamin 1,000 mcg/mL Inject 1 mL intramuscularly once every month. nitroglycerin sublingual (NITROQUICK) 0.4 mg SL tablet Dissolve 1 tablet under the tongue every 5 minutes as needed for chest pain. FOR CHEST PAIN. IF NO RELIEF CALL 911 ramipril (ALTACE) 5 mg capsule Take 1 capsule by mouth once daily. metoprolol succinate ER (TOPROL XL) 100 mg Take 1 tablet by mouth once daily. Syringe with Needle, Disp, (MONOJECT TB SAFETY SYRINGE) 1 mL 25 gauge x 5/8" Use as directed once a month. blood sugar diagnostic (Revel Touch VERIO TEST STRIPS) test strip Test blood sugar(s) 3 times daily. Dx: Other DM Code E11.42 Insulin: Yes ketoconazole (NIZORAL) 2 % cream Apply 1 application to affected area once daily. Syringe with Needle, Safety 3 mL 23 gauge x 1" 1 Each as directed. Use one each with Vitamin B 12 injections weekly for 3 doses and then monthly. fluticasone (FLONASE) 50 mcg/actuation nasal spray Use 2 Sprays in each nostril once daily. Rinse mouth after use. Magnesium Oxide 500 mg tab Take 500 mg by mouth once daily. Cholecalciferol, Vitamin D3, 50 mcg (2,000 unit) cap Take 1 capsule by mouth once daily. calcium carbonate/vitamin D2 (CALCIUM 600 WITH VITAMIN D ORAL) Take 1 tablet by mouth once daily. melatonin 10 mg tab Take 1 tablet by mouth daily at bedtime. aspirin, enteric coated (ASPIR-LOW) 81 mg EC tablet Take 1 tablet by mouth once daily. MULTIVITAMIN ORAL Take by mouth. OTC One A Day Womens Spirometers and Accessories gui Incentive spirometer. Deep breathe hourly while awake. PT/INR test meter (COAGUCHEK XS PRO) misc Check Protime weekly. Dx: pulmonary embolism, V58.61 COMPOUNDED PRESCRIPTION Hospital bed all electric with adjustable head and feet. 415.19; 343.8; 782.3; 787.91; V43.65 No current facility-administered medications for this visit. Psychiatric Medication Issues: No change from previous appointment DIAGNOSIS: Hewett I: Depressive Disorder recurrent Morbidly Obese CP Hewett II : Deferred Hewett III : See medical history Hewett IV: Health Hewett V: GAF 60-51 Moderate symptoms or moderate difficulty in social, occupational or school functioning TREATMENT PROGRESS/ASSESSMENT: Progressing (more content not included)... [facility] 01-27-2024 History of Present illness Narrative Associated Order(s): Debridement Post-Procedure Diagnose(s): Pressure ulcer of right foot, stage 3 (HCC) Images from the original note were not included. [facility] Wound Care Progress Note CHIEF COMPLAINT: Wound Care HISTORY OF PRESENT ILLNESS: The patient is a 73 y.o. female arrives with wound of L foot. States she has had this in past. States she has CP with L side affected. Uses L foot for transfers. States she cannot help this and therefore occasionally has wound. Feels wound is better than last week. REVIEW OF SYSTEMS: Review of Systems Constitutional: Negative. Negative for chills, fatigue and fever. Respiratory: Negative. Cardiovascular: Negative. Skin: Positive for wound. Negative for color change (from typical for patient) and rash. PHYSICAL EXAM: BP 126/76 Pulse 72 Temp 36.2 C (97.1 F) Resp 18 Physical Exam Vitals reviewed. Constitutional: General: She is not in acute distress. Appearance: Normal appearance. She is not ill-appearing or toxic-appearing. HENT: Ears: Comments: Hearing to conversational voice is normal. Pulmonary: Effort: Pulmonary effort is normal. Breath sounds: No wheezing (No audible wheeze). Skin: General: Skin is warm. Comments: Wound is plantar 1st met head. Smaller. Some slough. Some callus. No evidence of cellulitis. See photos and measurements. Neurological: Mental Status: She is alert and oriented to person, place, and time. Psychiatric: Thought Content: Thought content normal. Debridement Wound/Incision 01/20/24 Diabetic Ulcer Foot Left Performed by: Isaac Chicas DO Authorized by: Isaac Chicas, DO Consent Consent obtained? verbal Consent given by: patient Risks discussed? procedural risks discussed Immediately prior to the procedure a time out was called and the performing provider verified the correct patient, procedure, equipment, operations support professionals, and site/side marked as required. Debridement Details Performed by: physician Debridement type: surgical Level of debridement: subcutaneous tissue Pain control: lidocaine 2% Pain control administration type: topical Pre-debridement measurements Length (cm): 0.4 Width (cm): 0.6 Depth (cm): 0.1 Surface Area (cm^2): 0.24 Post-debridement measurements Length (cm): 0.5 Width (cm): 0.7 Depth (cm): 0.2 Percent debrided: 100% Surface Area (cm^2): 0.35 Area Debrided (cm^2): 0.35 Volume (cm^3): 0.07 Tissue and other material debrided: dermis, epidermis and subcutaneous tissue Devitalized tissue debrided: biofilm and slough Instrument(s) utilized: curette Bleeding: small Hemostasis obtained with: pressure Procedural pain (0-10): 1 Post-procedural pain: 0 Response to treatment: procedure was tolerated well Wound/Incision 01/20/24 Diabetic Ulcer Foot Left (Active) Wound Image 01/27/24 1303 Site Assessment Granulation 01/27/24 1303 Andra-Wound Assessment Intact 01/27/24 1303 Wound Length (cm) 0.4 cm 01/27/24 1303 Wound Width (cm) 0.6 cm 01/27/24 1303 Wound Surface Area (cm^2) 0.24 cm^2 01/27/24 1303 Wound Depth (cm) 0.1 cm 01/27/24 1303 Wound Volume (cm^3) 0.024 cm^3 01/27/24 1303 Wound Healing % 79 01/27/24 1303 Drainage Description Serosanguineous 01/27/24 1303 Odor None 01/27/24 1303 Drainage Amount Small 01/27/24 1303 Treatments Cleansed 01/27/24 1303 Primary Dressing Collagen;Mesalt pad 01/27/24 1303 Secondary Dressing 4x4 gauze 01/27/24 1303 Secured with Kerlex;Silk tape 01/27/24 1303 Dressing Status Clean, dry & intact 01/27/24 1303 1. Pressure ulcer of right foot, stage 3 (HCC) PLAN: Patient examined and evaluated. Pt ed, reassure Continue collagen/mesalt to wound Reviewed offloading/shear Reviewed s/s infection Reviewed activity Recheck one wk, sooner prn Pt agrees with plan. Treatment: Orders Placed This Encounter Procedures Wound Care OP Follow-up Follow up in 1 week Dressing Order: Collagen, Mesalt pad; Three times per week; ABDs; Kerlex, Paper tape Order Specific Question: Primary Dressing Answer: Collagen Order Specific Question: Primary Dressing Answer: Mesalt pad Order Specific Question: Dressing Frequency Answer: Three times per week Order Specific Question: Secondary Dressing Answer: ABDs Order Specific Question: Secured With Answer: Kerlex Order Specific Question: Secured With Answer: Paper tape Please see attached Discharge Instructions documented in this encounter [facility] 01-27-2024 Hospital Discharge instructions Maria Isabel Wilson RN - 01/27/2024 1:15 PM EDT Follow-up Appointments: Return Appointment in 1 week. Call [facility] at [phone], [facility] at [phone], or [facility] at [phone]. Edema/Swelling: Avoid standing for long periouds of time. Elevate legs to the level of the heart or above for 30 minutes daily and /or when sitting, a frequency of daily and whenever sitting. Offloading: Keep pressure off of area. Avoid friction and rubbing to prevent wound worsening Nutritious: Follow a nutritious diet. Increase protein in your diet, 100 grams a day to promote wound healing Wound Treatment: Three times a week Cleanse wound with mild soap and water and pat dry. Apply moistened collagen to wound bed. Apply Mesalt Pad Apply dry dressing to cover the wound and secure with tape. documented in this encounter [facility] 01-27-2024 Note [facility] Wound Care Progress Note CHIEF COMPLAINT: Wound Care HISTORY OF PRESENT ILLNESS: The patient is a 73 y.o. female arrives with wound of L foot. States she has had this in past. States she has CP with L side affected. Uses L foot for transfers. States she cannot help this and therefore occasionally has wound. Feels wound is better than last week. REVIEW OF SYSTEMS: Review of Systems Constitutional: Negative. Negative for chills, fatigue and fever. Respiratory: Negative. Cardiovascular: Negative. Skin: Positive for wound. Negative for color change (from typical for patient) and rash. PHYSICAL EXAM: BP 126/76 Pulse 72 Temp 36.2 ?C (97.1 ?F) Resp 18 Physical Exam Vitals reviewed. Constitutional: General: She is not in acute distress. Appearance: Normal appearance. She is not ill-appearing or toxic-appearing. HENT: Ears: Comments: Hearing to conversational voice is normal. Pulmonary: Effort: Pulmonary effort is normal. Breath sounds: No wheezing (No audible wheeze). Skin: General: Skin is warm. Comments: Wound is plantar 1st met head. Smaller. Some slough. Some callus. No evidence of cellulitis. See photos and measurements. Neurological: Mental Status: She is alert and oriented to person, place, and time. Psychiatric: Thought Content: Thought content normal. Debridement Wound/Incision 01/20/24 Diabetic Ulcer Foot Left Performed by: Isaac Chicas DO Authorized by: Isaac Chicas, DO Consent Consent obtained? verbal Consent given by: patient Risks discussed? procedural risks discussed Immediately prior to the procedure a time out was called and the performing provider verified the correct patient, procedure, equipment, operations support professionals, and site/side marked as required. Debridement Details Performed by: physician Debridement type: surgical Level of debridement: subcutaneous tissue Pain control: lidocaine 2% Pain control administration type: topical Pre-debridement measurements Length (cm): 0.4 Width (cm): 0.6 Depth (cm): 0.1 Surface Area (cm^2): 0.24 Post-debridement measurements Length (cm): 0.5 Width (cm): 0.7 Depth (cm): 0.2 Percent debrided: 100% Surface Area (cm^2): 0.35 Area Debrided (cm^2): 0.35 Volume (cm^3): 0.07 Tissue and other material debrided: dermis, epidermis and subcutaneous tissue Devitalized tissue debrided: biofilm and slough Instrument(s) utilized: curette Bleeding: small Hemostasis obtained with: pressure Procedural pain (0-10): 1 Post-procedural pain: 0 Response to treatment: procedure was tolerated well Wound/Incision 01/20/24 Diabetic Ulcer Foot Left (Active) Wound Image 01/27/24 1303 Site Assessment Granulation 01/27/24 1303 Andra-Wound Assessment Intact 01/27/24 1303 Wound Length (cm) 0.4 cm 01/27/24 1303 Wound Width (cm) 0.6 cm 01/27/24 1303 Wound Surface Area (cm^2) 0.24 cm^2 01/27/24 1303 Wound Depth (cm) 0.1 cm 01/27/24 1303 Wound Volume (cm^3) 0.024 cm^3 01/27/24 1303 Wound Healing % 79 01/27/24 1303 Drainage Description Serosanguineous 01/27/24 1303 Odor None 01/27/24 1303 Drainage Amount Small 01/27/24 1303 Treatments Cleansed 01/27/24 1303 Primary Dressing Collagen;Mesalt pad 01/27/24 1303 Secondary Dressing 4x4 gauze 01/27/24 1303 Secured with Kerlex;Silk tape 01/27/24 1303 Dressing Status Clean, dry & intact 01/27/24 1303 1. Pressure ulcer of right foot, stage 3 (HCC) PLAN: Patient examined and evaluated. Pt ed, reassure Continue collagen/mesalt to wound Reviewed offloading/shear Reviewed s/s infection Reviewed activity Recheck one wk, sooner prn Pt agrees with plan. Treatment: Orders Placed This Encounter Procedures Wound Care OP Follow-up Follow up in 1 week Dressing Order: Collagen, Mesalt pad; Three times per week; ABDs; Kerlex, Paper tape Order Specific Question: Primary Dressing Answer: Collagen Order Specific Question: Primary Dressing Answer: Mesalt pad Order Specific Question: Dressing Frequency Answer: Three times per week Order Specific Question: Secondary Dressing Answer: ABDs Order Specific Question: Secured With Answer: Kerlex Order Specific Question: Secured With Answer: Paper tape Please see attached Discharge Instructions [facility] 01-20-2024 History of Present illness Narrative Associated Order(s): Debridement Post-Procedure Diagnose(s): Pressure ulcer of right foot, stage 3 (HCC) Images from the original note were not included. [facility] [address] [place] [address] Loc: [phone] Wound Care Visit - New Patient Progress Note CHIEF COMPLAINT: Wound Care HISTORY OF PRESENT ILLNESS: The patient is a 73 y.o. female arrives with wound of L foot. States she has had this in past. States she has CP with L side affected. Uses L foot for transfers. States she cannot help this and therefore occasionally has wound. States collagen has worked well for her in past. PAST MEDICAL HISTORY Past Medical History: Diagnosis Date Anemia of chronic disease Asthma B12 deficiency Brachial neuritis CAD (coronary artery disease) Cerebral palsy (HCC) Depression Diabetes (HCC) Fatty liver Frequent falls HLD (hyperlipidemia) Hyperparathyroidism (HCC) Lupus (CMS/HCC) (HCC) Migraine headache with aura Neuropathy Obesity Pulmonary emboli (HCC) Pulmonary embolism (HCC) Systemic lupus erythematosus (CMS/HCC) (HCC) Type 2 diabetes mellitus (HCC) PAST SURGICAL HISTORY Past Surgical History: Procedure Laterality Date TOTAL KNEE ARTHROPLASTY Right Medications reviewed Medical history reviewed Allergies reviewed Current Medications: Current Outpatient Medications: alpha tocopherol (Vitamin E) 400 units capsule, Take 400 Units by mouth in the morning and 400 Units in the evening., Disp: , Rfl: aspirin 81 MG EC tablet, Take 81 mg by mouth daily., Disp: , Rfl: buPROPion SR (Wellbutrin SR) 150 MG 12 hr tablet, Take 150 mg by mouth daily., Disp: , Rfl: cholecalciferol (Vitamin D-3) 50 MCG (1999) capsule, Take 2,000 Units by mouth daily., Disp: , Rfl: cyanocobalamin (Vitamin B-12) 500 MCG tablet, Take 500 mcg by mouth daily., Disp: , Rfl: escitalopram (Lexapro) 10 MG tablet, Take 10 mg by mouth in the morning., Disp: , Rfl: escitalopram (Lexapro) 5 MG tablet, take 1 tablet by mouth once daily with 10 milligram to EQUAL 15MG FOR ANXIETY, Disp: , Rfl: fluticasone (Flonase) 50 MCG/ACT nasal spray, Administer 1 spray into each nostril daily., Disp: , Rfl: folic acid (Folvite) 1 MG tablet, Take 1 tablet by mouth daily., Disp: , Rfl: gabapentin (Neurontin) 300 MG capsule, 1 tablet Orally three ti,es a day, Disp: , Rfl: HYDROcodone-acetaminophen ([place]) 5-325 MG tablet, Take 1 tablet by mouth every 6 hours as needed., Disp: , Rfl: hydroxychloroquine (Plaquenil) 200 MG tablet, Take 1 tablet by mouth in the morning and 1 tablet in the evening., Disp: , Rfl: hydrOXYzine pamoate (Vistaril) 25 MG capsule, Take 25 mg by mouth in the morning and 25 mg in the evening., Disp: , Rfl: levothyroxine (Synthroid, Levoxyl) 150 MCG tablet, Take 150 mcg by mouth daily., Disp: , Rfl: metFORMIN (Glucophage) 500 MG tablet, Take 500 mg by mouth in the morning and 500 mg in the evening. Take with meals., Disp: , Rfl: metoprolol succinate XL (Toprol-XL) 100 MG 24 hr tablet, Take 100 mg by mouth daily at bedtime., Disp: , Rfl: mupirocin (Bactroban) 2 % ointment, Apply topically daily., Disp: , Rfl: nitroglycerin (Nitrostat) 0.4 MG SL tablet, Place under the tongue., Disp: , Rfl: nystatin (Mycostatin) 301933 UNIT/GM powder, Apply topically 2 times daily., Disp: , Rfl: nystatin (Mycostatin) cream, Apply topically 3 times daily., Disp: , Rfl: prazosin (Minipress) 1 MG capsule, , Disp: , Rfl: ramipril (Altace) 5 MG capsule, Take 1 capsule by mouth Every 24 hours., Disp: , Rfl: traZODone (Desyrel) 50 MG tablet, Take 50 mg by mouth every evening., Disp: , Rfl: warfarin (Coumadin) 5 MG tablet, Take 1 tablet by mouth daily., Disp: , Rfl: magnesium oxide 500 MG tablet, Take by mouth., Disp: , Rfl: REVIEW OF SYSTEMS: Review of Systems Constitutional: Negative. Negative for chills, fatigue and fever. Respiratory: Negative. Cardiovascular: Negative. Skin: Positive for wound. Negative for color change (from typical for patient) and rash. PHYSICAL EXAM: BP 112/70 (BP Location: Left arm, Patient Position: Sitting) Pulse 79 Temp 36.2 C (97.2 F) Resp 18 Ht 5' 2" (1.575 m) Wt 213 lb (96.6 kg) BMI 38.96 kg/m Physical Exam Vitals reviewed. Constitutional: General: She is not in acute distress. Appearance: Normal appearance. She is not ill-appearing or toxic-appearing. HENT: Ears: Comments: Hearing to conversational voice is normal. Pulmonary: Effort: Pulmonary effort is normal. Breath sounds: No wheezing (No audible wheeze). Skin: General: Skin is warm. Comments: Wound is plantar 1st met head. Little drainage. Some slough. Some callus. No evidence of cellulitis. See photos and measurements. Neurological: Mental Status: She is alert and oriented to person, place, and time. Psychiatric: Thought Content: Thought content normal. Debridement Wound/Incision 01/20/24 Pressure Injury Foot Left Performed by: Isaac Chicas DO Authorized by: Isaac Chicas, DO Consent Consent obtained? verbal Consent given by: patient Risks discussed? procedural risks discussed Immediately prior to the procedure a time out was called and the performing provider verified the correct patient, procedure, equipment, operations support professionals, and site/side marked as required. Debridement Details Performed by: physician Debridement type: surgical Level of debridement: subcutaneous tissue Pain control: lidocaine 2% Pain control administration type: topical Pre-debridement measurements Length (cm): 0.7 Width (cm): 0.8 Depth (cm): 0.2 Surface Area (cm^2): 0.56 Post-debridement measurements Length (cm): 0.9 Width (cm): 0.9 Depth (cm): 0.3 Percent debrided: 100% Surface Area (cm^2): 0.81 Area Debrided (cm^2): 0.81 Volume (cm^3): 0.24 Tissue and other material debrided: dermis, epidermis and subcutaneous tissue Devitalized tissue debrided: biofilm and slough Instrument(s) utilized: curette Bleeding: small Hemostasis obtained with: pressure Procedural pain (0-10): 0 Post-procedural pain: 0 Response to treatment: procedure was tolerated well Wound/Incision 01/20/24 Pressure Injury Foot Left (Active) Wound Image 01/20/24 1448 Site Assessment Red;[place] 01/20/24 1448 Andra-Wound Assessment [place] 01/20/24 1448 Wound Length (cm) 0.7 cm 01/20/24 1448 Wound Width (cm) 0.8 cm 01/20/24 1448 Wound Surface Area (cm^2) 0.56 cm^2 01/20/24 1448 Wound Depth (cm) 0.2 cm 01/20/24 1448 Wound Volume (cm^3) 0.112 cm^3 01/20/24 1448 Drainage Description Serosanguineous 01/20/24 1448 Odor None 01/20/24 1448 Drainage Amount Small 01/20/24 1448 Treatments Cleansed 01/20/24 1448 1. Pressure ulcer of right foot, stage 3 (HCC) PLAN: Patient examined and evaluated. Pt ed, reassure Collagen/mesalt to wound Reviewed offloading/shear Reviewed s/s infection Reviewed activity Recheck one wk, sooner prn Pt agrees with plan. Patient understands all that has been explained and wishes to proceed with current treatment. Patient understands all risks, benefits, procedures, andra-operative management, and possible complications. All questions answered and no guarantees made or implied. Treatment: Orders Placed This Encounter Procedures Wound Care OP Follow-up Follow up in 1 week Dressing Order: Collagen Ag, Mesalt pad; Three times per week; 4x4 gauze, ABDs; Kerlex, Paper tape Order Specific Question: Primary Dressing Answer: Collagen Ag Order Specific Question: Primary Dressing Answer: Mesalt pad Order Specific Question: Dressing Frequency Answer: Three times per week Order Specific Question: Secondary Dressing Answer: 4x4 gauze Order Specific Question: Secondary Dressing Answer: ABDs Order Specific Question: Secured With Answer: Kerlex Order Specific Question: Secured With Answer: Paper tape Please see attached Discharge Instructions Assessments Nursing Assessment/Reassessment Score (check box all that apply) General Physical Exam 20 [x] Comprehensive Assessment (history, ROS, Risk Assessments, wound hx, etc) 25 [x] Wound and skin Assessment/Reassessment Dermatologic / Skin Assessment (not related to wound area) 10 [x] Ostomy and/or Continence Assessment & Care Incontinence Assessment and Management 10 [] Ostomy Care Assessment and Management (repouching, etc) 20 [] Process Coordination of Care Simple Patient/Family Education for ongoing care 15 [x] Complex (extensive) Patient/Family Education for ongoing of care 20 [] Staff obtains Consent, Records, Test Results/Process Orders 10 [x] Staff telephones [facility], Nursing Homes/Clarify Orders 10 [] Routine Transfer to another Facility (non-emergent condition) 10 [] Routine Hospital Admission (non-emergent condition) 10 [] New Admissions/Insurance Auth/Ordering NPWT, skin substitute, etc. 15 [x] Emergency Hospital Admission (emergent condition) 20 [] Special Needs Pediatric / Minor Patient Management 10 [] Isolation Patient Management 10 [] Hearing/Language/Visual Special Needs 15 [] Assessment of Community Assistance (transportation, discharge planning) 15 [] Additional Assistance / Altered Mentation 15 [] Support Surface Assessment (bed, cushion, seat) 15 [] Interventions Miscellaneous External Ear Exam 5 [] Patient Transfer (multiple staff/Carlos lift) 10 [] Simple Staple/Suture Removal (25 or less) 5 [] Complex Staple/Suture Removal (26 or more) 10 [] Hypo/Hyperglycemic Management 10 [] Ankle/Brachial Index (RAÚL) 15 [] Total Points - Use to Determine Level of Clinic Visit 85 Points Willis: Level 1 (1-35 Points) Level 2 (40-75 Points) Level 3 (80-115 Points) Level 4 (120-155 Points) Level 5 (160 or more Points) documented in this encounter [facility] 01-20-2024 Hospital Discharge instructions Maria Isabel Wilson RN - 01/20/2024 2:45 PM EDT Follow-up Appointments: Return Appointment in 1 week. Call [facility] at [phone], [facility] at [phone], or [facility] at [phone]. Edema/Swelling: Avoid standing for long periouds of time. Elevate legs to the level of the heart or above for 30 minutes daily and /or when sitting, a frequency of daily and whenever sitting. Offloading: Keep pressure off of area. Avoid friction and rubbing to prevent wound worsening Nutritious: Follow a nutritious diet. Increase protein in your diet, 100 grams a day to promote wound healing Wound Treatment: Three times a week Cleanse wound with mild soap and water and pat dry. Apply moistened collagen to wound bed. Apply Mesalt Pad Apply dry dressing to cover the wound and secure with tape. documented in this encounter [facility] 01-20-2024 Note Encounter addended b y: Tania Osei RN on: 01/21/2024 10:33 AM Actions taken: Care Teams modified, LDA properties accepted, Charge Capture section accepted [facility] 12-25-2023 Note HNO ID: [id number] Author: GILMER COTTON, PhD Service: ? Author Type: Psychologist Type: Progress Notes Filed: 12/25/2023 11:56 Note Text: [facility] Department Progress Note Randolph Hunter 12/25/2023 [id number] PROVIDER: Gilmer Cotton, PhD CPT Code: Time: 50 minutes Setting: Patient seen in person Parties Present: Patient Treatment Modality/Interventions: Cognitive Behavioral Reassurance/Supportive Insight oriented Problem solving Processing of emotions Psychoeducation MENTAL STATUS: Mood: variable, irritable Affect: mood-congruent Thoughts/Associations:goal directed Suicidal/Homicidal Ideation: None expressed or evidenced Other Prominent Symptoms: Therapy Focus/Content of Session: Self-care, Stress management, Mood/affect regulation, and Self-esteem LOTS OF STRESSORS: Khadra is in an apartment for 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 daughter is a month old and doing well as a couple Issues remain w living situation and is slowly a bit worse but still ok MOOD: frustrated but handling things at the end of the day MEDICATIONS: Per medical record: Current Outpatient Medications Medication Sig albuterol (PROVENTIL) 2.5 mg /3 mL (0.083 %) nebulizer solution 3 mL as needed Inhalation every 6 hrs furosemide (LASIX) 80 mg tablet Take 1 tablet by mouth once daily. hydrOXYchloroQUINE (PLAQUENIL) 200 mg tablet mupirocin (BACTROBAN) 2 % ointment Apply to affected area once daily. APPLY TO AFFECTED AREA prazosin (MINIPRESS) 1 mg cap folic acid 1 mg tablet Take 1 tablet by mouth every afternoon. nitrofurantoin monohydrate and macrocrystal (MACROBID) 100 mg capsule escitalopram oxalate (LEXAPRO) 10 mg tablet Take 10 mg by mouth once daily. escitalopram oxalate (LEXAPRO) 5 mg tablet take 1 tablet by mouth once daily with 10 milligram to EQUAL 15MG FOR ANXIETY Nystatin, Bulk, 10 billion unit powd Apply to affected area. traZODone (DESYREL) 50 mg tablet Take 50 mg by mouth every evening. buPROPion XL (WELLBUTRIN XL) 300 mg 24 hr tablet 300 mg once daily. metFORMIN ER (GLUCOPHAGE XR) 500 mg 24 hr tablet Take 500 mg by mouth twice daily. levothyroxine (SYNTHROID) 150 mcg tablet Take 1 tablet by mouth once daily. Take on empty stomach. For thyroid HYDROcodone-acetaminophen (NORCO) 5-325 mg per tablet Take 1 tablet by mouth every 6 hours as needed for pain for up to 30 days. warfarin (COUMADIN) 5 mg tablet 7.5 mg Mon/Fri, 5 mg all other days or as directed mirtazapine (REMERON) 30 mg tablet Take 1 tablet by mouth daily at bedtime. (Patient not taking: No sig reported) gabapentin (NEURONTIN) 600 mg tablet Take 1 tablet by mouth three times daily for 180 days. cyanocobalamin 1,000 mcg/mL Inject 1 mL intramuscularly once every month. nitroglycerin sublingual (NITROQUICK) 0.4 mg SL tablet Dissolve 1 tablet under the tongue every 5 minutes as needed for chest pain. FOR CHEST PAIN. IF NO RELIEF CALL 911 ramipril (ALTACE) 5 mg capsule Take 1 capsule by mouth once daily. metoprolol succinate ER (TOPROL XL) 100 mg Take 1 tablet by mouth once daily. Syringe with Needle, Disp, (MONOJECT TB SAFETY SYRINGE) 1 mL 25 gauge x 5/8" Use as directed once a month. blood sugar diagnostic (Revel Touch VERIO TEST STRIPS) test strip Test blood sugar(s) 3 times daily. Dx: Other DM Code E11.42 Insulin: Yes ketoconazole (NIZORAL) 2 % cream Apply 1 application to affected area once daily. Syringe with Needle, Safety 3 mL 23 gauge x 1" 1 Each as directed. Use one each with Vitamin B 12 injections weekly for 3 doses and then monthly. fluticasone (FLONASE) 50 mcg/actuation nasal spray Use 2 Sprays in each nostril once daily. Rinse mouth after use. Magnesium Oxide 500 mg tab Take 500 mg by mouth once daily. Cholecalciferol, Vitamin D3, 50 mcg (2,000 unit) cap Take 1 capsule by mouth once daily. calcium carbonate/vitamin D2 (CALCIUM 600 WITH VITAMIN D ORAL) Take 1 tablet by mouth once daily. melatonin 10 mg tab Take 1 tablet by mouth daily at bedtime. aspirin, enteric coated (ASPIR-LOW) 81 mg EC tablet Take 1 tablet by mouth once daily. MULTIVITAMIN ORAL Take by mouth. OTC One A Day Womens Spirometers and Accessories gui Incentive spirometer. Deep breathe hourly while awake. PT/INR test meter (COAGUCHEK XS PRO) misc Check Protime weekly. Dx: pulmonary embolism, V58.61 COMPOUNDED PRESCRIPTION Hospital bed all electric with adjustable head and feet. 415.19; 343.8; 782.3; 787.91; V43.65 No current facility-administered medications for this visit. Psychiatric Medication Issues: No change from previous appointment DIAGNOSIS: Hewett I: Depressive Disorder recurrent Morbidly Obese CP Hewett II : Deferred Hewett III (more content not included)... [facility] 12-16-2023 Emergency department Note Patient wheeled out ED for transport to residence. discharge instructions sent to facility with patient. No further questions. Respirations even and non labored. No acute distress. A&O x4. Gifty Cornell RN 12/16/23 0015 [facility] 12-16-2023 Emergency department Note Patient wheeled out ED for transport to residence. discharge instructions sent to facility with patient. No further questions. Respirations even and non labored. No acute distress. A&O x4. Gifty Cornell RN 12/16/23 0015 EMERGENCY DEPARTMENT ENCOUNTER Pt Name: Randolph Hunter Birthdate 1950 Date of evaluation: 12/15/2023 ED Provider: Gloria Bangura DO CHIEF COMPLAINT Chief Complaint Patient presents with Skin Ulcer Headache HISTORY OF PRESENT ILLNESS (Location/Symptom, Timing/Onset, Context/Setting, Quality, Duration, Modifying Factors, Severity) Note limiting factors. I wore appropriate PPE for the entirety of this encounter. HPI 73-year-old female presents emergency department today from her nursing facility for cellulitis of the left lower leg. She states they are already aware of her foot ulcer and she sees a doctor regarding this. She states she is on nurse practitioner today at her facility who sent her in to the emergency department because of the cellulitis. She is also reporting increased weakness and fatigue. Nursing Notes were reviewed. Limitations to history: None Outside historians: None REVIEW OF SYSTEMS Review of Systems Skin: Positive for wound. Pertinent positives and negatives as per HPI. PAST MEDICAL HISTORY Past Medical History: Diagnosis Date Anemia of chronic disease Asthma B12 deficiency Brachial neuritis CAD (coronary artery disease) Cerebral palsy (HCC) Depression Diabetes (HCC) Fatty liver Frequent falls HLD (hyperlipidemia) Hyperparathyroidism (HCC) Lupus (CMS/HCC) (HCC) Migraine headache with aura Neuropathy Obesity Pulmonary emboli (HCC) Pulmonary embolism (HCC) Systemic lupus erythematosus (CMS/HCC) (HCC) Type 2 diabetes mellitus (HCC) SURGICAL HISTORY Past Surgical History: Procedure Laterality Date TOTAL KNEE ARTHROPLASTY Right CURRENT MEDICATIONS Previous Medications ASPIRIN 81 MG EC TABLET Take 81 mg by mouth daily. BUPROPION SR (WELLBUTRIN SR) 150 MG 12 HR TABLET Take 150 mg by mouth daily. ESCITALOPRAM (LEXAPRO) 10 MG TABLET Take 10 mg by mouth in the morning. ESCITALOPRAM (LEXAPRO) 5 MG TABLET take 1 tablet by mouth once daily with 10 milligram to EQUAL 15MG FOR ANXIETY FLUTICASONE (FLONASE) 50 MCG/ACT NASAL SPRAY Administer 1 spray into each nostril daily. FOLIC ACID (FOLVITE) 1 MG TABLET Take 1 tablet by mouth daily. GABAPENTIN (NEURONTIN) 300 MG CAPSULE 1 tablet Orally three ti,es a day HYDROCODONE-ACETAMINOPHEN (NORCO) 5-325 MG TABLET Take 1 tablet by mouth every 6 hours as needed. HYDROXYCHLOROQUINE (PLAQUENIL) 200 MG TABLET Take 1 tablet by mouth in the morning and 1 tablet in the evening. LEVOTHYROXINE (SYNTHROID, LEVOXYL) 150 MCG TABLET Take 150 mcg by mouth daily. MAGNESIUM OXIDE 500 MG TABLET Take by mouth. METFORMIN (GLUCOPHAGE) 500 MG TABLET Take 500 mg by mouth in the morning and 500 mg in the evening. Take with meals. METOPROLOL SUCCINATE XL (TOPROL-XL) 100 MG 24 HR TABLET Take 100 mg by mouth daily at bedtime. NITROGLYCERIN (NITROSTAT) 0.[address] under the tongue. PRAZOSIN (MINIPRESS) 1 MG CAPSULE RAMIPRIL (ALTACE) 5 MG CAPSULE Take 1 capsule by mouth Every 24 hours. TRAZODONE (DESYREL) 50 MG TABLET Take 50 mg by mouth every evening. WARFARIN (COUMADIN) 5 MG TABLET Take 1 tablet by mouth daily. ALLERGIES Promethazine-phenylephrine, 5-alpha reductase inhibitors, Ciprofloxacin, E-mycin [erythromycin], Keflex [cephalexin], Naproxen, Paxil [paroxetine], Penicillins, Phenergan [promethazine], and Statins FAMILY HISTORY No family history on file. SOCIAL HISTORY Social History Socioeconomic History Marital status: Tobacco Use Smoking status: Never Smokeless tobacco: Never Vaping Use Vaping status: Never Used Substance and Sexual Activity Alcohol use: Yes Drug use: Never Social History Narrative Merged History Encounter Social Determinants of Health Financial Resource Strain: Low Risk (01/02/2020) Received from [facility] Overall Financial Resource Strain (CARDIA) Difficulty of Paying Living Expenses: Not very hard Food Insecurity: Food Insecurity Present (01/02/2020) Received from [facility] Hunger Vital Sign Worried About Running Out of Food in the Last Year: Sometimes true Ran Out of Food in the Last Year: Never true Transportation Needs: Unmet Transportation Needs (01/02/2020) Received from [facility] PRAPARE - Transportation Lack of Transportation (Medical): Yes Lack of Transportation (Non-Medical): Yes Physical Activity: Inactive (01/02/2020) Received from [facility] Exercise Vital Sign Days of Exercise per Week: 0 days Minutes of Exercise per Session: 0 min Stress: Stress Concern Present (01/02/2020) Re[facility] [employer] [facility] - Occupational Stress Questionnaire Feeling of Stress : Rather much Social Connections: Moderately Isolated (01/02/2020) Received from [facility] Social Connection and Isolation Panel [NHANES] Frequency of Communication with Friends and Family: More than three times a week Frequency of Social Gatherings with Friends and Family: Never Attends Holiness Services: Never Active Member of Clubs or Organizations: No Attends Club or Organization Meetings: Patient declined Marital Status: SCREENINGS PHYSICAL EXAM ED Triage Vitals Temp Pulse Resp BP -- -- -- -- SpO2 Temp src Heart Rate Source Patient Position -- -- -- -- BP Location FiO2 (%) -- -- Physical Exam Vitals and nursing note reviewed. Constitutional: Appearance: Normal appearance. HENT: Head: Normocephalic and atraumatic. Cardiovascular: Rate and Rhythm: Normal rate. Pulmonary: Effort: Pulmonary effort is normal. Musculoskeletal: General: Normal range of motion. Skin: General: Skin is warm and dry. Findings: Lesion present. Comments: L lower extremity: erythema and warmth extending from just above the ankle to mid calf which is circumferential. 2+ DP pulses intact. Does have a well-circumscribed 2-1/2 cm ulcer to the base of her left foot with no surrounding erythema or cellulitis there. Neurological: General: No focal deficit present. Mental Status: She is alert. Mental status is at baseline. Psychiatric: Mood and Affect: Mood normal. Behavior: Behavior normal. DIAGNOSTIC RESULTS Procedures/EKG: RADIOLOGY (Per Emergency Physician): Interpretation per the Radiologist below, if available at the time of this note: XR foot 3+ views left (Results Pending) ED BEDSIDE ULTRASOUND: Performed by ED Physician - none LABS: Labs Reviewed BLOOD CULTURE BLOOD CULTURE CBC WITH AUTO DIFFERENTIAL BASIC METABOLIC PANEL SEDIMENTATION RATE, AUTOMATED C-REACTIVE PROTEIN All other labs were within normal range or not returned as of this dictation. EMERGENCY DEPARTMENT COURSE and DIFFERENTIAL DIAGNOSIS/MDM: Vitals: Vitals: 12/15/23 1824 BP: (!) 144/63 Pulse: 72 Resp: 16 Temp: 36.3 C (97.3 F) TempSrc: Tympanic SpO2: 98% Weight: 96.6 kg (213 lb) Height: 1.651 m (5' 5") ED Course as of 12/15/231848Dec 15, 20231826 73-year-old female presents emergency department today from her nursing facility for cellulitis of the left lower leg. She states they are already aware of her foot ulcer and she sees a doctor regarding this. She states she is on nurse practitioner today at her facility who sent her in to the emergency department because of the cellulitis. She is also reporting increased weakness and fatigue. On exam has erythema and warmth extending from just above the ankle to mid calf which is circumferential. 2+ DP pulses intact. Does have a well-circumscribed 2-1/2 cm ulcer to the base of her left foot with no surrounding erythema or cellulitis there. [BM] 1827 Will check labs including CBC, BMP, ESR, CRP, blood cultures. Will obtain left foot x-ray to evaluate for osteomyelitis. [BM] [address] Sun from 2021 patient admitted for similar process with left leg cellulitis and left foot ulcer at that time had negative x-ray for osteomyelitis and was transition to oral antibiotics Augmentin and doxycycline on discharge. [BM] 1847 Signed out to oncoming emergency medicine physician pending labs and x-ray of left foot to evaluate for osteomyelitis. Plan to discuss with patient at that time admission for observation for IV antibiotics versus discharge back on oral antibiotics and monitoring for worsening cellulitis. [BM] ED Course User Index [BM] Gloria Bangura DO Diagnoses as of 12/15/231848 Diabetic ulcer of left foot associated with diabetes mellitus due to underlying condition, unspecified part of foot, unspecified ulcer stage (HCC) Left leg cellulitis Medications vancomycin (Vancocin) 2,000 mg in sodium chloride 0.9 % 500 mL IVPB (has no administration in time range) acetaminophen (Tylenol) tablet 650 mg (650 mg Oral Given 12/15/231843) REVAL: CRITICAL CARE TIME FINAL IMPRESSION 1. Diabetic ulcer of left foot associated with diabetes mellitus due to underlying condition, unspecified part of foot, unspecified ulcer stage (HCC) 2. Left leg cellulitis DISPOSITION PATIENT REFERRED TO: No follow-up provider specified. DISCHARGE MEDICATIONS: New Prescriptions No medications on file (Comment: Please note this report has been produced using speech recognition software and may contain errors related to that system including errors in grammar, punctuation, and spelling, as well as words and phrases that may be inappropriate. If there are any questions or concerns please feel free to contact the dictating provider for clarification.) Gloria Bangura DO (electronically signed) Emergency Medicine Provider Gloria Bangura DO 12/15/231848 This patient was signed out to me by the previous provider. Please see their note for further HPI and patient care. In summary this is a 73-year-old female who presented the emergency department today for wound check. Previous provider had done labs and given her dose of IV vancomycin for concern for cellulitis and also ordered an x-ray she had a ulcer to her toe and wanted to rule out osteomyelitis. Signed out to me pending labs and disposition. I reviewed the patient's labs and she has no significant white count. Her ESR is within normal limits. Her CRP is only mildly elevated. She has no signs or symptoms concerning for sepsis. X-ray of her foot does not show any acute findings that are concerning for osteomyelitis. Given this I did feel that she would be safe to trial oral antibiotics. I had a discussion with the patient about putting in her observation unit at [facility] for 24 hours of IV antibiotics versus discharging home with oral antibiotics. After shared decision-making she elected to go home. I do think that this is a safe plan. She lives in assisted living and they can help her with continuing to monitor her wound. Gave her strict return precautions and discharged in stable condition. Karen Gallardo MD 12/15/231935 Patient to room 7 via [facility] for c/o a left foot ulcer, lower leg erythema, and a headache. Patient reports she has had her foot ulcer for a couple of months. V/S obtained, call light within reach. documented in this encounter [facility] 12-15-2023 Hospital Discharge instructions Karen Gallardo MD - 12/15/2023 7:32 PM EDT You came to the emergency department today for a wound check. X-ray imaging was done and does not show that there is any signs of osteomyelitis with your skin ulcer. Your labs do not show any signs of severe infection. We are concern for a cellulitis but after discussion decided to treat with oral antibiotics. We did give you a dose of IV antibiotics while here. Please continue to monitor your skin infection and if after 48 hours you feel like it is getting worse or not improving then come back to the hospital for admission for IV antibiotics. The following attachments cannot be sent through Care Everywhere.Cellulitis (Skin Infection) Discharge Instructions, Adult (Stateless)documented in this encounter [facility] 12-15-2023 Emergency department Triage note Patient to room 7 via [facility] for c/o a left foot ulcer, lower leg erythema, and a headache. Patient reports she has had her foot ulcer for a couple of months. V/S obtained, call light within reach. [facility] 12-15-2023 Physician Emergency department Note EMERGENCY DEPARTMENT ENCOUNTER Pt Name: Randolph Hunter Birthdate 1950 Date of evaluation: 12/15/2023 ED Provider: Gloria Bangura DO CHIEF COMPLAINT Chief Complaint Patient presents with Skin Ulcer Headache HISTORY OF PRESENT ILLNESS (Location/Symptom, Timing/Onset, Context/Setting, Quality, Duration, Modifying Factors, Severity) Note limiting factors. I wore appropriate PPE for the entirety of this encounter. HPI 73-year-old female presents emergency department today from her nursing facility for cellulitis of the left lower leg. She states they are already aware of her foot ulcer and she sees a doctor regarding this. She states she is on nurse practitioner today at her facility who sent her in to the emergency department because of the cellulitis. She is also reporting increased weakness and fatigue. Nursing Notes were reviewed. Limitations to history: None Outside historians: None REVIEW OF SYSTEMS Review of Systems Skin: Positive for wound. Pertinent positives and negatives as per HPI. PAST MEDICAL HISTORY Past Medical History: Diagnosis Date Anemia of chronic disease Asthma B12 deficiency Brachial neuritis CAD (coronary artery disease) Cerebral palsy (HCC) Depression Diabetes (HCC) Fatty liver Frequent falls HLD (hyperlipidemia) Hyperparathyroidism (HCC) Lupus (CMS/HCC) (HCC) Migraine headache with aura Neuropathy Obesity Pulmonary emboli (HCC) Pulmonary embolism (HCC) Systemic lupus erythematosus (CMS/HCC) (HCC) Type 2 diabetes mellitus (HCC) SURGICAL HISTORY Past Surgical History: Procedure Laterality Date TOTAL KNEE ARTHROPLASTY Right CURRENT MEDICATIONS Previous Medications ASPIRIN 81 MG EC TABLET Take 81 mg by mouth daily. BUPROPION SR (WELLBUTRIN SR) 150 MG 12 HR TABLET Take 150 mg by mouth daily. ESCITALOPRAM (LEXAPRO) 10 MG TABLET Take 10 mg by mouth in the morning. ESCITALOPRAM (LEXAPRO) 5 MG TABLET take 1 tablet by mouth once daily with 10 milligram to EQUAL 15MG FOR ANXIETY FLUTICASONE (FLONASE) 50 MCG/ACT NASAL SPRAY Administer 1 spray into each nostril daily. FOLIC ACID (FOLVITE) 1 MG TABLET Take 1 tablet by mouth daily. GABAPENTIN (NEURONTIN) 300 MG CAPSULE 1 tablet Orally three ti,es a day HYDROCODONE-ACETAMINOPHEN (NORCO) 5-325 MG TABLET Take 1 tablet by mouth every 6 hours as needed. HYDROXYCHLOROQUINE (PLAQUENIL) 200 MG TABLET Take 1 tablet by mouth in the morning and 1 tablet in the evening. LEVOTHYROXINE (SYNTHROID, LEVOXYL) 150 MCG TABLET Take 150 mcg by mouth daily. MAGNESIUM OXIDE 500 MG TABLET Take by mouth. METFORMIN (GLUCOPHAGE) 500 MG TABLET Take 500 mg by mouth in the morning and 500 mg in the evening. Take with meals. METOPROLOL SUCCINATE XL (TOPROL-XL) 100 MG 24 HR TABLET Take 100 mg by mouth daily at bedtime. NITROGLYCERIN (NITROSTAT) 0.[address] under the tongue. PRAZOSIN (MINIPRESS) 1 MG CAPSULE RAMIPRIL (ALTACE) 5 MG CAPSULE Take 1 capsule by mouth Every 24 hours. TRAZODONE (DESYREL) 50 MG TABLET Take 50 mg by mouth every evening. WARFARIN (COUMADIN) 5 MG TABLET Take 1 tablet by mouth daily. ALLERGIES Promethazine-phenylephrine, 5-alpha reductase inhibitors, Ciprofloxacin, E-mycin [erythromycin], Keflex [cephalexin], Naproxen, Paxil [paroxetine], Penicillins, Phenergan [promethazine], and Statins FAMILY HISTORY No family history on file. SOCIAL HISTORY Social History Socioeconomic History Marital status: Tobacco Use Smoking status: Never Smokeless tobacco: Never Vaping Use Vaping status: Never Used Substance and Sexual Activity Alcohol use: Yes Drug use: Never Social History Narrative Merged History Encounter Social Determinants of Health Financial Resource Strain: Low Risk (01/02/2020) Received from [facility] Overall Financial Resource Strain (CARDIA) Difficulty of Paying Living Expenses: Not very hard Food Insecurity: Food Insecurity Present (01/02/2020) Received from [facility] Hunger Vital Sign Worried About Running Out of Food in the Last Year: Sometimes true Ran Out of Food in the Last Year: Never true Transportation Needs: Unmet Transportation Needs (01/02/2020) Received from [facility] PRAPARE - Transportation Lack of Transportation (Medical): Yes Lack of Transportation (Non-Medical): Yes Physical Activity: Inactive (01/02/2020) Received from [facility] Exercise Vital Sign Days of Exercise per Week: 0 days Minutes of Exercise per Session: 0 min Stress: Stress Concern Present (01/02/2020) Received from [facility] [employer] [place] [facility] [employer] - Occupational Stress Questionnaire Feeling of Stress : Rather much Social Connections: Moderately Isolated (01/02/2020) Received from [facility] Social Connection and Isolation Panel [NHANES] Frequency of Communication with Friends and Family: More than three times a week Frequency of Social Gatherings with Friends and Family: Never Attends Holiness Services: Never Active Member of Clubs or Organizations: No Attends Club or Organization Meetings: Patient declined Marital Status: SCREENINGS PHYSICAL EXAM ED Triage Vitals Temp Pulse Resp BP -- -- -- -- SpO2 Temp src Heart Rate Source Patient Position -- -- -- -- BP Location FiO2 (%) -- -- Physical Exam Vitals and nursing note reviewed. Constitutional: Appearance: Normal appearance. HENT: Head: Normocephalic and atraumatic. Cardiovascular: Rate and Rhythm: Normal rate. Pulmonary: Effort: Pulmonary effort is normal. Musculoskeletal: General: Normal range of motion. Skin: General: Skin is warm and dry. Findings: Lesion present. Comments: L lower extremity: erythema and warmth extending from just above the ankle to mid calf which is circumferential. 2+ DP pulses intact. Does have a well-circumscribed 2-1/2 cm ulcer to the base of her left foot with no surrounding erythema or cellulitis there. Neurological: General: No focal deficit present. Mental Status: She is alert. Mental status is at baseline. Psychiatric: Mood and Affect: Mood normal. Behavior: Behavior normal. DIAGNOSTIC RESULTS Procedures/EKG: RADIOLOGY (Per Emergency Physician): Interpretation per the Radiologist below, if available at the time of this note: XR foot 3+ views left (Results Pending) ED BEDSIDE ULTRASOUND: Performed by ED Physician - none LABS: Labs Reviewed BLOOD CULTURE BLOOD CULTURE CBC WITH AUTO DIFFERENTIAL BASIC METABOLIC PANEL SEDIMENTATION RATE, AUTOMATED C-REACTIVE PROTEIN All other labs were within normal range or not returned as of this dictation. EMERGENCY DEPARTMENT COURSE and DIFFERENTIAL DIAGNOSIS/MDM: Vitals: Vitals: 12/15/231823 BP: (!) 144/63 Pulse: 72 Resp: 16 Temp: 36.3 C (97.3 F) TempSrc: Tympanic SpO2: 98% Weight: 96.6 kg (213 lb) Height: 1.651 m (5' 5") ED Course as of 12/15/231848Dec 15, 20231826 73-year-old female presents emergency department today from her nursing facility for cellulitis of the left lower leg. She states they are already aware of her foot ulcer and she sees a doctor regarding this. She states she is on nurse practitioner today at her facility who sent her in to the emergency department because of the cellulitis. She is also reporting increased weakness and fatigue. On exam has erythema and warmth extending from just above the ankle to mid calf which is circumferential. 2+ DP pulses intact. Does have a well-circumscribed 2-1/2 cm ulcer to the base of her left foot with no surrounding erythema or cellulitis there. [BM] 1828 Will check labs including CBC, BMP, ESR, CRP, blood cultures. Will obtain left foot x-ray to evaluate for osteomyelitis. [BM] [address] Sun from 2021 patient admitted for similar process with left leg cellulitis and left foot ulcer at that time had negative x-ray for osteomyelitis and was transition to oral antibiotics Augmentin and doxycycline on discharge. [BM] 1847 Signed out to oncoming emergency medicine physician pending labs and x-ray of left foot to evaluate for osteomyelitis. Plan to discuss with patient at that time admission for observation for IV antibiotics versus discharge back on oral antibiotics and monitoring for worsening cellulitis. [BM] ED Course User Index [BM] Gloria Bangura DO Diagnoses as of 12/15/231848 Diabetic ulcer of left foot associated with diabetes mellitus due to underlying condition, unspecified part of foot, unspecified ulcer stage (HCC) Left leg cellulitis Medications vancomycin (Vancocin) 2,000 mg in sodium chloride 0.9 % 500 mL IVPB (has no administration in time range) acetaminophen (Tylenol) tablet 650 mg (650 mg Oral Given 12/15/231843) REVAL: CRITICAL CARE TIME FINAL IMPRESSION 1. Diabetic ulcer of left foot associated with diabetes mellitus due to underlying condition, unspecified part of foot, unspecified ulcer stage (HCC) 2. Left leg cellulitis DISPOSITION PATIENT REFERRED TO: No follow-up provider specified. DISCHARGE MEDICATIONS: New Prescriptions No medications on file (Comment: Please note this report has been produced using speech recognition software and may contain errors related to that system including errors in grammar, punctuation, and spelling, as well as words and phrases that may be inappropriate. If there are any questions or concerns please feel free to contact the dictating provider for clarification.) Gloria Bangura DO (electronically signed) Emergency Medicine Provider Gloria Bangura DO 12/15/231848 T [facility] 12-15-2023 Physician Emergency department Note This patient was signed out to me by the previous provider. Please see their note for further HPI and patient care. In summary this is a 73-year-old female who presented the emergency department today for wound check. Previous provider had done labs and given her dose of IV vancomycin for concern for cellulitis and also ordered an x-ray she had a ulcer to her toe and wanted to rule out osteomyelitis. Signed out to me pending labs and disposition. I reviewed the patient's labs and she has no significant white count. Her ESR is within normal limits. Her CRP is only mildly elevated. She has no signs or symptoms concerning for sepsis. X-ray of her foot does not show any acute findings that are concerning for osteomyelitis. Given this I did feel that she would be safe to trial oral antibiotics. I had a discussion with the patient about putting in her observation unit at [facility] for 24 hours of IV antibiotics versus discharging home with oral antibiotics. After shared decision-making she elected to go home. I do think that this is a safe plan. She lives in assisted living and they can help her with continuing to monitor her wound. Gave her strict return precautions and discharged in stable condition. Karen Gallardo MD 12/15/231935 [facility] 11-27-2023 Note HNO ID: [id number] Author: GILMER COTTON, PhD Service: ? Author Type: Psychologist Type: Progress Notes Filed: 11/27/2023 12:09 Note Text: [facility] Department Progress Note Randolph Hunter 11/27/2023 [id number] PROVIDER: Gilmer Cotton, PhD CPT Code: Time: 50 minutes Setting: Patient seen in person Parties Present: Patient Treatment Modality/Interventions: Cognitive Behavioral Reassurance/Supportive Insight oriented Processing of emotions MENTAL STATUS: Mood: variable, anxious Affect: mood-congruent Thoughts/Associations:goal directed Suicidal/Homicidal Ideation: None expressed or evidenced Other Prominent Symptoms: Therapy Focus/Content of Session: Self-care, Stress management, Mood/affect regulation, and Self-esteem Daughter Khadra ... caught w meth and gave the hospital and police a run for their money... hallucinating hx of poly substance abuse... now in locked tx in [place] struggles to get things up to speed w new mgmt but things seem to be heading in the right direction but slowly her blood thinner seems a bit off and some bleeding PLAN: working w the nurses to get it under control MEDICATIONS: Per medical record: Current Outpatient Medications Medication Sig albuterol (PROVENTIL) 2.5 mg /3 mL (0.083 %) nebulizer solution 3 mL as needed Inhalation every 6 hrs furosemide (LASIX) 80 mg tablet Take 1 tablet by mouth once daily. hydrOXYchloroQUINE (PLAQUENIL) 200 mg tablet mupirocin (BACTROBAN) 2 % ointment Apply to affected area once daily. APPLY TO AFFECTED AREA prazosin (MINIPRESS) 1 mg cap folic acid 1 mg tablet Take 1 tablet by mouth every afternoon. nitrofurantoin monohydrate and macrocrystal (MACROBID) 100 mg capsule escitalopram oxalate (LEXAPRO) 10 mg tablet Take 10 mg by mouth once daily. escitalopram oxalate (LEXAPRO) 5 mg tablet take 1 tablet by mouth once daily with 10 milligram to EQUAL 15MG FOR ANXIETY Nystatin, Bulk, 10 billion unit powd Apply to affected area. traZODone (DESYREL) 50 mg tablet Take 50 mg by mouth every evening. buPROPion XL (WELLBUTRIN XL) 300 mg 24 hr tablet 300 mg once daily. metFORMIN ER (GLUCOPHAGE XR) 500 mg 24 hr tablet Take 500 mg by mouth twice daily. levothyroxine (SYNTHROID) 150 mcg tablet Take 1 tablet by mouth once daily. Take on empty stomach. For thyroid HYDROcodone-acetaminophen (NORCO) 5-325 mg per tablet Take 1 tablet by mouth every 6 hours as needed for pain for up to 30 days. warfarin (COUMADIN) 5 mg tablet 7.5 mg Mon/Fri, 5 mg all other days or as directed mirtazapine (REMERON) 30 mg tablet Take 1 tablet by mouth daily at bedtime. (Patient not taking: No sig reported) gabapentin (NEURONTIN) 600 mg tablet Take 1 tablet by mouth three times daily for 180 days. cyanocobalamin 1,000 mcg/mL Inject 1 mL intramuscularly once every month. nitroglycerin sublingual (NITROQUICK) 0.4 mg SL tablet Dissolve 1 tablet under the tongue every 5 minutes as needed for chest pain. FOR CHEST PAIN. IF NO RELIEF CALL 911 ramipril (ALTACE) 5 mg capsule Take 1 capsule by mouth once daily. metoprolol succinate ER (TOPROL XL) 100 mg Take 1 tablet by mouth once daily. Syringe with Needle, Disp, (MONOJECT TB SAFETY SYRINGE) 1 mL 25 gauge x 5/8" Use as directed once a month. blood sugar diagnostic (Revel Touch VERIO TEST STRIPS) test strip Test blood sugar(s) 3 times daily. Dx: Other DM Code E11.42 Insulin: Yes ketoconazole (NIZORAL) 2 % cream Apply 1 application to affected area once daily. Syringe with Needle, Safety 3 mL 23 gauge x 1" 1 Each as directed. Use one each with Vitamin B 12 injections weekly for 3 doses and then monthly. fluticasone (FLONASE) 50 mcg/actuation nasal spray Use 2 Sprays in each nostril once daily. Rinse mouth after use. Magnesium Oxide 500 mg tab Take 500 mg by mouth once daily. Cholecalciferol, Vitamin D3, 50 mcg (2,000 unit) cap Take 1 capsule by mouth once daily. calcium carbonate/vitamin D2 (CALCIUM 600 WITH VITAMIN D ORAL) Take 1 tablet by mouth once daily. melatonin 10 mg tab Take 1 tablet by mouth daily at bedtime. aspirin, enteric coated (ASPIR-LOW) 81 mg EC tablet Take 1 tablet by mouth once daily. MULTIVITAMIN ORAL Take by mouth. OTC One A Day Womens Spirometers and Accessories gui Incentive spirometer. Deep breathe hourly while awake. PT/INR test meter (COAGUCHEK XS PRO) misc Check Protime weekly. Dx: pulmonary embolism, V58.61 COMPOUNDED PRESCRIPTION Hospital bed all electric with adjustable head and feet. 415.19; 343.8; 782.3; 787.91; V43.65 No current facility-administered medications for this visit. Psychiatric Medication Issues: see med record DIAGNOSIS: Hewett I: Depressive Disorder recurrent Morbidly Obese CP Hewett II : Deferred Hewett III : See medical history Hewett IV: Health Hewett V: GAF 60-51 Moderate symptoms or moderate difficulty in social, occupational or school functioning TREATMENT PROG (more content not included)... [facility] 07-20-2023 Emergency department Note Physician's arrived; pt removed from urine collection device and pts own attends placed on pt per her request. Pts belongings in bag at bedside. Report to Physician's. Veronika Bae RN 07/20/23 0844 [facility] 07-20-2023 Emergency department Note Physician's arrived; pt removed from urine collection device and pts own attends placed on pt per her request. Pts belongings in bag at bedside. Report to Physician's. Veronika Bae RN 07/20/23 0844 [facility] amb[facility]lette[facility]wheelchair van. Chasidy MCCRACKEN spoke with Physician's to inform them that the pt is non ambulatory and needed a stretcher. Physician's states they will have a stretcher here "within the hour." Veronika Bae RN 07/20/23 0717 Patient pressed call light to request pain medication. States pain is in shoulders and down the back from laying on the tables. MD notified Gifty Cornell RN 07/20/23 0044 Report given to Gifty MCCRACKEN & Chasidy MCCRACKEN. Patient still in radiology. Pia Caraballo RN 07/19/23 888 Dispo per imaging :) Chasidy Fernandez RN 07/19/232253 Pt placed up for discharge. No discharge paperwork complete at this time. Once orders are complete and discharge paperwork complete by ER DR Pt will be discharged. Chasidy Fernandez RN 07/19/232251 This RN requested orders from ER . Chasidy Fernandez RN 07/19/232025 EMERGENCY DEPARTMENT ENCOUNTER Pt Name: Randolph Hunter Birthdate 1950 Date of evaluation: 07/19/2023 ED Provider: Cuba Anna MD CHIEF COMPLAINT Chief Complaint Patient presents with Hip Pain Right Fall HISTORY OF PRESENT ILLNESS (Location/Symptom, Timing/Onset, Context/Setting, Quality, Duration, Modifying Factors, Severity) Note limiting factors. I wore appropriate PPE for the entirety of this encounter. HPI Randolph Hunter is a 72 y.o. who presents to the emergency department with a mechanical fall The patient has frequent falls, she is wheelchair-bound. She has a right-sided total knee replacement. Does not smoke does not drink. No family history. She lives in a [facility] facility and is on Coumadin as she has a history of lupus and coronary artery disease. She was with physical therapy in her wheelchair today when she was trying to transfer from the chair to a toilet and slipped and fell. This happened twice today. She has multiple bruises on the right knee which she says are not actually from the falls, but from the fact that she is in her wheelchair and often bangs her right knee (and sometimes her left knee) into nearby tables and chairs. She complains of pain in the right hip. She still has good range of motion of the right hip but she says it is sore. She also has neck pain. She is pretty certain that she did not actually hit her neck when she fell, she thinks that when people went to pick her up off the ground (at baseline she cannot get herself off the ground), they may have "wrenched my neck" in the process. Denies any focal numbness or focal weakness in the arms or legs. No chest pain no palpitations no shortness of breath no abdominal pain no syncope no presyncope. There is no objective craniofacial trauma. There is no altered mental status, patient remembers the entire event, she is able to answer questions follow commands laughing and joking despite her circumstances, jovial Nursing Notes were reviewed. Limitations to history: None Outside historians: None REVIEW OF SYSTEMS Review of Systems Pertinent positives and negatives as per HPI PAST MEDICAL HISTORY Past Medical History: Diagnosis Date Anemia of chronic disease Asthma B12 deficiency Brachial neuritis CAD (coronary artery disease) Cerebral palsy (HCC) Depression Diabetes (HCC) Fatty liver Frequent falls HLD (hyperlipidemia) Hyperparathyroidism (HCC) Lupus (CMS/HCC) (HCC) Migraine headache with aura Neuropathy Obesity Pulmonary emboli (HCC) Pulmonary embolism (HCC) Systemic lupus erythematosus (CMS/HCC) (HCC) Type 2 diabetes mellitus (HCC) SURGICAL HISTORY Past Surgical History: Procedure Laterality Date TOTAL KNEE ARTHROPLASTY Right CURRENT MEDICATIONS Previous Medications ASPIRIN 81 MG EC TABLET Take 81 mg by mouth daily. BUPROPION SR (WELLBUTRIN SR) 150 MG 12 HR TABLET Take 150 mg by mouth daily. ESCITALOPRAM (LEXAPRO) 10 MG TABLET Take 10 mg by mouth in the morning. ESCITALOPRAM (LEXAPRO) 5 MG TABLET take 1 tablet by mouth once daily with 10 milligram to EQUAL 15MG FOR ANXIETY FLUTICASONE (FLONASE) 50 MCG/ACT NASAL SPRAY Administer 1 spray into each nostril daily. FOLIC ACID (FOLVITE) 1 MG TABLET Take 1 tablet by mouth daily. GABAPENTIN (NEURONTIN) 300 MG CAPSULE 1 tablet Orally three ti,es a day HYDROCODONE-ACETAMINOPHEN (NORCO) 5-325 MG TABLET Take 1 tablet by mouth every 6 hours as needed. HYDROXYCHLOROQUINE (PLAQUENIL) 200 MG TABLET Take 1 tablet by mouth in the morning and 1 tablet in the evening. LEVOTHYROXINE (SYNTHROID, LEVOXYL) 150 MCG TABLET Take 150 mcg by mouth daily. MAGNESIUM OXIDE 500 MG TABLET Take by mouth. METFORMIN (GLUCOPHAGE) 500 MG TABLET Take 500 mg by mouth in the morning and 500 mg in the evening. Take with meals. METOPROLOL SUCCINATE XL (TOPROL-XL) 100 MG 24 HR TABLET Take 100 mg by mouth daily at bedtime. NITROGLYCERIN (NITROSTAT) 0.[address] under the tongue. PRAZOSIN (MINIPRESS) 1 MG CAPSULE RAMIPRIL (ALTACE) 5 MG CAPSULE Take 1 capsule by mouth Every 24 hours. TRAZODONE (DESYREL) 50 MG TABLET Take 50 mg by mouth every evening. WARFARIN (COUMADIN) 5 MG TABLET Take 1 tablet by mouth daily. ALLERGIES 5-alpha reductase inhibitors, Ciprofloxacin, E-mycin [erythromycin], Keflex [cephalexin], Naproxen, Paxil [paroxetine], Phenergan [promethazine], and Statins FAMILY HISTORY No family history on file. SOCIAL HISTORY Social History Socioeconomic History Marital status: Tobacco Use Smoking status: Never Smokeless tobacco: Never Vaping Use Vaping Use: Never used Substance and Sexual Activity Alcohol use: Yes Drug use: Never Social History Narrative Merged History Encounter SCREENINGS PHYSICAL EXAM ED Triage Vitals [07/19/23 1850] Temp Heart Rate Resp BP 36.7 C (98 F) 71 18 134/60 SpO2 Temp Source Heart Rate Source Patient Position 97 % Oral Monitor Sitting BP Location FiO2 (%) Right arm -- Physical Exam General: Elderly debilitated adult female lying Semi-Alvarado's in bed, laughing and smiling HENT: Head NCAT, EOMI with no erythema, swelling or discharge. No raccoon's eyes No Calhoun sign Face stable Normal bite alignment Oropharyngeal mucus membranes moist, pink, no exudate Neck: Full ROM, supple, no rigidity Cardio: RRR, nl s1 s2 no m/r/g, extremities warm, dry, well perfused, non-edematous, 2+ bilateral DP pulses, 2+ bilateral radial pulses Lungs: CTAB, no wheezes, rales, rhonchi, normal work of breathing Abdomen: Soft, NT, ND, non-rigid, BS x 4 normal MSK: There is cervical spine pain to palpation but there is no thoracic or lumbar spine pain to palpation Chest wall stable and nontender Pelvis is stable but there is tenderness to palpation on the right hip joint. Despite this, patient has full range of flexion and extension of the right hip joint, she can ABduct to 30 degrees and adduction to 0 degrees. There is no shortening or external rotation of the hip joint itself or the right lower extremity There is minimal if any pain to palpation of the right proximal femur. The midshaft of the right femur and the distal portion right femur are nontender to palpation The right knee is mildly tender to palpation. There is bruising there which appears several days old, patient says that the bruising has been there because she keeps bumping into things when in her wheelchair. There is a right-sided total knee replacement scar present. Patient able to flex about 70 degrees and extend to 0 degrees Right tib-fib nontender to palpation Right ankle nontender to palpation, full range of motion of the right ankle without pain Right foot nontender to palpation, full range of motion of all the toes and the foot without pain Right upper extremity nontender to palpation, full range of motion without pain Left upper extremity nontender to palpation, full range of motion without pain Left lower extremity is only tender to palpation over the left knee. There is no contusion or abrasion or bruising to the left knee. Patient can flex the right left knee to 90 degrees and extend the left knee to 0 degrees. There is no pain to palpation left femur or left tib-fib Skin: Warm, dry, pink. See above regarding bruising and right-sided TKR scar to the right knee. There is no bruising or contusion to the right hip or the head or the neck or the back Neuro: Alert, oriented, mentating normally Strength limited by pain in the right hip and right knee, but intact sensation from the right hip all the way the tips of the toes in the right foot Normal 5/5 strength appropriate for age and normal sensation in the right arm the left arm and the left leg Cranial nerves II through XII normal No slurred speech No facial droop Psych: Euthymic. Smiling laughing joking, in good spirits despite circumstances DIAGNOSTIC RESULTS RADIOLOGY (Per Emergency Physician): Interpretation per the Radiologist below, if available at the time of this note: XR femur right 2+ views Final Result 1. Right knee arthroplasty in adequate alignment 2. Unremarkable right hip 3. Osteoarthritis of the left knee Report Dictated on Electronically Signed By: Phan Sepulveda MD Electronically Signed Date/Time: 07/19/2023 11:53 PM EST XR knee 3 views left Final Result 1. Right knee arthroplasty in adequate alignment 2. Unremarkable right hip 3. Osteoarthritis of the left knee Report Dictated on Electronically Signed By: Phan Sepulveda MD Electronically Signed Date/Time: 07/19/2023 11:53 PM EST XR knee 3 views right Final Result 1. Right knee arthroplasty in adequate alignment 2. Unremarkable right hip 3. Osteoarthritis of the left knee Report Dictated on Electronically Signed By: Phan Sepulveda MD Electronically Signed Date/Time: 07/19/2023 11:[address] head wo IV contrast Final Result No acute intracranial abnormality. Mild diffuse cortical volume loss. Report Dictated on Electronically Signed By: Albina Newton MD Electronically Signed Date/Time: 07/19/2023 11:[address] pelvis wo IV contrast Final Result No acute fracture. Nonacute findings, as above. Report Dictated on Electronically Signed By: Albina Newton MD Electronically Signed Date/Time: 07/19/2023 11:[address] cervical spine wo IV contrast Final Result No acute cervical spine fracture. Multilevel cervical spondylosis. Report Dictated on Electronically Signed By: Albina Newton MD Electronically Signed Date/Time: 07/19/2023 11:18 PM EST LABS: Labs Reviewed - No data to display All other labs were within normal range or not returned as of this dictation. EMERGENCY DEPARTMENT COURSE and DIFFERENTIAL DIAGNOSIS/MDM: Vitals: Vitals: 07/19/23 1850 BP: 134/60 BP Location: Right arm Patient Position: Sitting Pulse: 71 Resp: 18 Temp: 36.7 C (98 F) TempSrc: Oral SpO2: 97% Weight: 108 kg (239 lb) Height: 1.575 m (5' 2") Medications HYDROcodone-acetaminophen ([place]) 5-325 MG per tablet 1 tablet (has no administration in time range) HYDROcodone-acetaminophen ([place]) 5-325 MG per tablet 1 tablet (1 tablet Oral Given 07/19/232030) 72-year-old female presents for frequent falls, is in [place] for this purpose, complains of right hip pain and right knee pain and neck pain MDM elements: The patient presented with chief complaint of see above. The differential diagnosis associated with this patient's presentation includes right hip pain from contusion versus fracture of the right hip versus pelvic fracture. Will evaluate bilateral knees for underlying fractures. Patient is on Coumadin and fails Burmese CT head rules and CT C-spine rules by virtue of age, needs CT head and CT cervical spine as well. Pain controlled with [place]. No lab work required, this was mechanical fall to which the patient is very vulnerable and for which purpose she is in [place] with PT and 24/7 wheelchair. Our workup consisted of ordering/reviewing: X-ray bilateral knees x-ray right femur CT pelvis without contrast, CT head and neck without contrast. To aid in management, I performed an independent interpretation of Xray(s) see below CT scan(s) see below. I also reviewed external records from [facility] to obtain collateral history. The patient will be Discharged. Patient is in agreement with this plan. Patient's care was impacted by history of frequent falls. PROCEDURES: Unless otherwise noted below, none Procedures CT cervical spine shows no acute cervical spine fracture. Multilevel cervical spondylosis. Interpreted by me. CT head without contrast shows no acute intracranial abnormality. There are signs of remote lacunar infarcts versus prominent perivascular spaces in the bilateral inferior basal ganglia. No brain bleed no skull fracture. Interpreted by me. CT pelvis without contrast shows no acute fracture. Multilevel posterior facet joint arthropathy. Mild bilateral sacroiliac joint DJD and mild degenerative change of the pubic symphysis and mild bilateral hip joint DJD but no acute hip fracture and no dislocation. Status post hysterectomy. Interpreted by me. X-ray right femur shows no fracture. Interpreted by me. X-ray right knee shows right knee total arthroplasty with adequate alignment, no signs of hardware failure or fracture. Interpreted by me. X-ray left knee shows osteoarthritis of the left knee but no left knee joint effusion and no fracture or subluxation. Interpreted by me. As the patient has no acute fractures, there is no indication for orthopedic surgery consultation. Patient does have issues with frequent falls but this is why she lives in [place] with 24/7 monitoring and physical therapy that visits her every day. I encouraged her to stay in her wheelchair to get around safely, and if she is transferring from the wheelchair to the toilet or other maneuvers at home, she should do so with nursing staff or PT nearby. She is already on [place] at home for pain so no additional medication is necessary at this time. Upon reassessment of the patient prior to discharge, PMS in bilateral lower extremities was intact and her mental status was normal. She is not septic she is not toxic she is not hypotensive or tachycardic or hypoxic, there is no indication for hospitalization at this time. She plans to follow-up with Dr. Trixie Mendez who is her osteoarthritis specialist in [place]; this is very good follow-up. The patient evolves worsening pain or worsening swelling in the right hip or bilateral knees, or these joints become erythematous or warm to the touch or exhibit decreasing range of motion, or if she falls again or has worsening neck pain or feels weak feels faint or passes out, or develops new onset numbness weakness or paresthesias in the extremities, she should return to the ED immediately. Otherwise she should be stable for outpatient follow-up. Results of workup and plan of care discussed with patient. She indicated understanding. Strict return precautions and anticipatory guidance given. All questions answered to her satisfaction. Patient discharged home in stable condition. Disposition: Discharged CRITICAL CARE TIME FINAL IMPRESSION 1. Frequent falls 2. Right hip pain 3. Contusion of right knee, initial encounter 4. Osteoarthritis, unspecified osteoarthritis type, unspecified site DISPOSITION Discharge 07/19/2023 09:28:10 PM PATIENT REFERRED TO: No follow-up provider specified. DISCHARGE MEDICATIONS: New Prescriptions No medications on file (Comment: Please note this report has been produced using speech recognition software and may contain errors related to that system including errors in grammar, punctuation, and spelling, as well as words and phrases that may be inappropriate. If there are any questions or concerns please feel free to contact the dictating provider for clarification.) Cuba Anna MD (electronically signed) Emergency Medicine Provider Cuba Anna MD 07/20/23 0110 Patient is here for right hip pain. She was transferring to the toilet when she fell. She resides at [address] She currently is working with a physical therapist and is in a wheelchair. Patient hooked up to [employer] due to incontinence. She also has right knee bruising that is from her repeatedly hitting it on her wheelchair. She denies hitting her head or neck during fall. She is on coumadin. Call light within reach. documented in this encounter [facility] 07-20-2023 Emergency department Note [facility] ambulette/wheelchair van. Chasidy MCCRACKEN spoke with [facility] to inform them that the pt is non ambulatory and needed a stretcher. [facility] states they will have a stretcher here "within the hour." Veronika Bae RN 07/20/23 0717 [facility] 07-20-2023 Hospital Discharge instructions Cuba Anna MD - 07/20/2023 1:12 AM EST You have been seen in the Emergency Department for a fall with right hip pain, pain in the right and the left knees, and neck pain. All of your x-rays show no fractures. The metallic right knee replacement is intact. There is extensive arthritis but no fracture present. Make sure that when you transfer from your wheelchair to the toilet or wheelchair to the bed, you have nursing staff for PT with you to help for safety. After a visit to the Emergency Department, follow-up is important. You should follow-up with Dr. Mendez of rheumatology midweek this week to ensure that you are feeling better and moving about as comfortably as possible. Return to the ED if you develop worsening pain or swelling in the right hip or both knees, the joints turn red or hot to the touch, you experience new numbness weakness or tingling, or you fall again or feel weak or feel faint or pass out, or if any new signs, symptoms, or concerns arise. The following attachments cannot be sent through Care Everywhere.Osteoarthritis (Stateless)Preventing Falls in Older Adults (Stateless)Hip Pain ED (Stateless)documented in this encounter [facility] 07-20-2023 Emergency department Note Patient pressed call light to request pain medication. States pain is in shoulders and down the back from laying on the tables. MD notified Gifty Cornell RN 07/20/23 0044 [facility] 07-19-2023 Emergency department Note Report given to Gifty MCCRACKEN & Chasidy MCCRACKEN. Patient still in radiology. Pia Caraballo RN 07/19/23 3630 [facility] 07-19-2023 Emergency department Note Dispo per imaging :) Chasidy Fernandez RN 07/19/232253 [facility] 07-19-2023 Emergency department Note Pt placed up for discharge. No discharge paperwork complete at this time. Once orders are complete and discharge paperwork complete by ER DR Pt will be discharged. Chasidy Fernandez RN 07/19/232251 [facility] 07-19-2023 Emergency department Note This RN requested orders from ER DR. Chasidy Fernandez RN 07/19/232025 [facility] 07-19-2023 Emergency department Triage note Patient is here for right hip pain. She was transferring to the toilet when she fell. She resides at [address] She currently is working with a physical therapist and is in a wheelchair. [facility]. She also has right knee bruising that is from her repeatedly hitting it on her wheelchair. She denies hitting her head or neck during fall. She is on coumadin. Call light within reach. [facility] 07-19-2023 Physician Emergency department Note EMERGENCY DEPARTMENT ENCOUNTER Pt Name: Randolph Hunter Birthdate 1950 Date of evaluation: 07/19/2023 ED Provider: Cuba Anna MD CHIEF COMPLAINT Chief Complaint Patient presents with Hip Pain Right Fall HISTORY OF PRESENT ILLNESS (Location/Symptom, Timing/Onset, Context/Setting, Quality, Duration, Modifying Factors, Severity) Note limiting factors. I wore appropriate PPE for the entirety of this encounter. HPI Randolph Hunter is a 72 y.o. who presents to the emergency department with a mechanical fall The patient has frequent falls, she is wheelchair-bound. She has a right-sided total knee replacement. Does not smoke does not drink. No family history. She [facility] a [facility] facility and is on Coumadin as she has a history of lupus and coronary artery disease. She was with physical therapy in her wheelchair today when she was trying to transfer from the chair to a toilet and slipped and fell. This happened twice today. She has multiple bruises on the right knee which she says are not actually from the falls, but from the fact that she is in her wheelchair and often bangs her right knee (and sometimes her left knee) into nearby tables and chairs. She complains of pain in the right hip. She still has good range of motion of the right hip but she says it is sore. She also has neck pain. She is pretty certain that she did not actually hit her neck when she fell, she thinks that when people went to pick her up off the ground (at baseline she cannot get herself off the ground), they may have "wrenched my neck" in the process. Denies any focal numbness or focal weakness in the arms or legs. No chest pain no palpitations no shortness of breath no abdominal pain no syncope no presyncope. There is no objective craniofacial trauma. There is no altered mental status, patient remembers the entire event, she is able to answer questions follow commands laughing and joking despite her circumstances, jovial Nursing Notes were reviewed. Limitations to history: None Outside historians: None REVIEW OF SYSTEMS Review of Systems Pertinent positives and negatives as per HPI PAST MEDICAL HISTORY Past Medical History: Diagnosis Date Anemia of chronic disease Asthma B12 deficiency Brachial neuritis CAD (coronary artery disease) Cerebral palsy (HCC) Depression Diabetes (HCC) Fatty liver Frequent falls HLD (hyperlipidemia) Hyperparathyroidism (HCC) Lupus (CMS/HCC) (HCC) Migraine headache with aura Neuropathy Obesity Pulmonary emboli (HCC) Pulmonary embolism (HCC) Systemic lupus erythematosus (CMS/HCC) (HCC) Type 2 diabetes mellitus (HCC) SURGICAL HISTORY Past Surgical History: Procedure Laterality Date TOTAL KNEE ARTHROPLASTY Right CURRENT MEDICATIONS Previous Medications ASPIRIN 81 MG EC TABLET Take 81 mg by mouth daily. BUPROPION SR (WELLBUTRIN SR) 150 MG 12 HR TABLET Take 150 mg by mouth daily. ESCITALOPRAM (LEXAPRO) 10 MG TABLET Take 10 mg by mouth in the morning. ESCITALOPRAM (LEXAPRO) 5 MG TABLET take 1 tablet by mouth once daily with 10 milligram to EQUAL 15MG FOR ANXIETY FLUTICASONE (FLONASE) 50 MCG/ACT NASAL SPRAY Administer 1 spray into each nostril daily. FOLIC ACID (FOLVITE) 1 MG TABLET Take 1 tablet by mouth daily. GABAPENTIN (NEURONTIN) 300 MG CAPSULE 1 tablet Orally three ti,es a day HYDROCODONE-ACETAMINOPHEN (NORCO) 5-325 MG TABLET Take 1 tablet by mouth every 6 hours as needed. HYDROXYCHLOROQUINE (PLAQUENIL) 200 MG TABLET Take 1 tablet by mouth in the morning and 1 tablet in the evening. LEVOTHYROXINE (SYNTHROID, LEVOXYL) 150 MCG TABLET Take 150 mcg by mouth daily. MAGNESIUM OXIDE 500 MG TABLET Take by mouth. METFORMIN (GLUCOPHAGE) 500 MG TABLET Take 500 mg by mouth in the morning and 500 mg in the evening. Take with meals. METOPROLOL SUCCINATE XL (TOPROL-XL) 100 MG 24 HR TABLET Take 100 mg by mouth daily at bedtime. NITROGLYCERIN (NITROSTAT) 0.[address] under the tongue. PRAZOSIN (MINIPRESS) 1 MG CAPSULE RAMIPRIL (ALTACE) 5 MG CAPSULE Take 1 capsule by mouth Every 24 hours. TRAZODONE (DESYREL) 50 MG TABLET Take 50 mg by mouth every evening. WARFARIN (COUMADIN) 5 MG TABLET Take 1 tablet by mouth daily. ALLERGIES 5-alpha reductase inhibitors, Ciprofloxacin, E-mycin [erythromycin], Keflex [cephalexin], Naproxen, Paxil [paroxetine], Phenergan [promethazine], and Statins FAMILY HISTORY No family history on file. SOCIAL HISTORY Social History Socioeconomic History Marital status: Tobacco Use Smoking status: Never Smokeless tobacco: Never Vaping Use Vaping Use: Never used Substance and Sexual Activity Alcohol use: Yes Drug use: Never Social History Narrative Merged History Encounter SCREENINGS PHYSICAL EXAM ED Triage Vitals [07/19/23 1850] Temp Heart Rate Resp BP 36.7 C (98 F) 71 18 134/60 SpO2 Temp Source Heart Rate Source Patient Position 97 % Oral Monitor Sitting BP Location FiO2 (%) Right arm -- Physical Exam General: Elderly debilitated adult female lying Semi-Alvarado's in bed, laughing and smiling HENT: Head NCAT, EOMI with no erythema, swelling or discharge. No raccoon's eyes No Calhoun sign Face stable Normal bite alignment Oropharyngeal mucus membranes moist, pink, no exudate Neck: Full ROM, supple, no rigidity Cardio: RRR, nl s1 s2 no m/r/g, extremities warm, dry, well perfused, non-edematous, 2+ bilateral DP pulses, 2+ bilateral radial pulses Lungs: CTAB, no wheezes, rales, rhonchi, normal work of breathing Abdomen: Soft, NT, ND, non-rigid, BS x 4 normal MSK: There is cervical spine pain to palpation but there is no thoracic or lumbar spine pain to palpation Chest wall stable and nontender Pelvis is stable but there is tenderness to palpation on the right hip joint. Despite this, patient has full range of flexion and extension of the right hip joint, she can ABduct to 30 degrees and adduction to 0 degrees. There is no shortening or external rotation of the hip joint itself or the right lower extremity There is minimal if any pain to palpation of the right proximal femur. The midshaft of the right femur and the distal portion right femur are nontender to palpation The right knee is mildly tender to palpation. There is bruising there which appears several days old, patient says that the bruising has been there because she keeps bumping into things when in her wheelchair. There is a right-sided total knee replacement scar present. Patient able to flex about 70 degrees and extend to 0 degrees Right tib-fib nontender to palpation Right ankle nontender to palpation, full range of motion of the right ankle without pain Right foot nontender to palpation, full range of motion of all the toes and the foot without pain Right upper extremity nontender to palpation, full range of motion without pain Left upper extremity nontender to palpation, full range of motion without pain Left lower extremity is only tender to palpation over the left knee. There is no contusion or abrasion or bruising to the left knee. Patient can flex the right left knee to 90 degrees and extend the left knee to 0 degrees. There is no pain to palpation left femur or left tib-fib Skin: Warm, dry, pink. See above regarding bruising and right-sided TKR scar to the right knee. There is no bruising or contusion to the right hip or the head or the neck or the back Neuro: Alert, oriented, mentating normally Strength limited by pain in the right hip and right knee, but intact sensation from the right hip all the way the tips of the toes in the right foot Normal 5/5 strength appropriate for age and normal sensation in the right arm the left arm and the left leg Cranial nerves II through XII normal No slurred speech No facial droop Psych: Euthymic. Smiling laughing joking, in good spirits despite circumstances DIAGNOSTIC RESULTS RADIOLOGY (Per Emergency Physician): Interpretation per the Radiologist below, if available at the time of this note: XR femur right 2+ views Final Result 1. Right knee arthroplasty in adequate alignment 2. Unremarkable right hip 3. Osteoarthritis of the left knee Report Dictated on Electronically Signed By: Phan Sepulveda MD Electronically Signed Date/Time: 07/19/2023 11:53 PM EST XR knee 3 views left Final Result 1. Right knee arthroplasty in adequate alignment 2. Unremarkable right hip 3. Osteoarthritis of the left knee Report Dictated on Electronically Signed By: Phan Sepulveda MD Electronically Signed Date/Time: 07/19/2023 11:53 PM EST XR knee 3 views right Final Result 1. Right knee arthroplasty in adequate alignment 2. Unremarkable right hip 3. Osteoarthritis of the left knee Report Dictated on Electronically Signed By: Phan Sepulveda MD Electronically Signed Date/Time: 07/19/2023 11:[address] head wo IV contrast Final Result No acute intracranial abnormality. Mild diffuse cortical volume loss. Report Dictated on Electronically Signed By: Albina Newton MD Electronically Signed Date/Time: 07/19/2023 11:[address] pelvis wo IV contrast Final Result No acute fracture. Nonacute findings, as above. Report Dictated on Electronically Signed By: Albina Newton MD Electronically Signed Date/Time: 07/19/2023 11:[address] cervical spine wo IV contrast Final Result No acute cervical spine fracture. Multilevel cervical spondylosis. Report Dictated on Electronically Signed By: Albina Newton MD Electronically Signed Date/Time: 07/19/2023 11:18 PM EST LABS: Labs Reviewed - No data to display All other labs were within normal range or not returned as of this dictation. EMERGENCY DEPARTMENT COURSE and DIFFERENTIAL DIAGNOSIS/MDM: Vitals: Vitals: 07/19/23 1850 BP: 134/60 BP Location: Right arm Patient Position: Sitting Pulse: 71 Resp: 18 Temp: 36.7 C (98 F) TempSrc: Oral SpO2: 97% Weight: 108 kg (239 lb) Height: 1.575 m (5' 2") Medications HYDROcodone-acetaminophen ([place]) 5-325 MG per tablet 1 tablet (has no administration in time range) HYDROcodone-acetaminophen ([place]) 5-325 MG per tablet 1 tablet (1 tablet Oral Given 07/19/232030) 72-year-old female presents for frequent falls, [place], complains of right hip pain and right knee pain and neck pain MDM elements: The patient presented with chief complaint of see above. The differential diagnosis associated with this patient's presentation includes right hip pain from contusion versus fracture of the right hip versus pelvic fracture. Will evaluate bilateral knees for underlying fractures. Patient is on Coumadin and fails Burmese CT head rules and CT C-spine rules by virtue of age, needs CT head and CT cervical spine as well. Pain controlled with [place]. No lab work required, this was mechanical fall to which the patient is very vulnerable and for which purpose she [place] [facility] [place] with PT and 24/7 wheelchair. Our workup consisted of ordering/reviewing: X-ray bilateral knees x-ray right femur CT pelvis without contrast, CT head and neck without contrast. To aid in management, I performed an independent interpretation of Xray(s) see below CT scan(s) see below. I also reviewed external records from [facility] to obtain collateral history. The patient will be Discharged. Patient is in agreement with this plan. Patient's care was impacted by history of frequent falls. PROCEDURES: Unless otherwise noted below, none Procedures CT cervical spine shows no acute cervical spine fracture. Multilevel cervical spondylosis. Interpreted by me. CT head without contrast shows no acute intracranial abnormality. There are signs of remote lacunar infarcts versus prominent perivascular spaces in the bilateral inferior basal ganglia. No brain bleed no skull fracture. Interpreted by me. CT pelvis without contrast shows no acute fracture. Multilevel posterior facet joint arthropathy. Mild bilateral sacroiliac joint DJD and mild degenerative change of the pubic symphysis and mild bilateral hip joint DJD but no acute hip fracture and no dislocation. Status post hysterectomy. Interpreted by me. X-ray right femur shows no fracture. Interpreted by me. X-ray right knee shows right knee total arthroplasty with adequate alignment, no signs of hardware failure or fracture. Interpreted by me. X-ray left knee shows osteoarthritis of the left knee but no left knee joint effusion and no fracture or subluxation. Interpreted by me. As the patient has no acute fractures, there is no indication for orthopedic surgery consultation. Patient does have issues with frequent falls but this is why she lives [place] [facility] [place] with [place]/ monitoring and physical therapy that visits her every day. I encouraged her to stay in her wheelchair to get around safely, and if she is transferring from the wheelchair to the toilet or other maneuvers at home, she should do so with nursing staff or PT nearby. She is already on [place] at home for pain so no additional medication is necessary at this time. Upon reassessment of the patient prior to discharge, PMS in bilateral lower extremities was intact and her mental status was normal. She is not septic she is not toxic she is not hypotensive or tachycardic or hypoxic, there is no indication for hospitalization at this time. She plans to follow-up with Dr. Trixie Mendez who is her osteoarthritis specialist in [place]; this is very good follow-up. The patient evolves worsening pain or worsening swelling in the right hip or bilateral knees, or these joints become erythematous or warm to the touch or exhibit decreasing range of motion, or if she falls again or has worsening neck pain or feels weak feels faint or passes out, or develops new onset numbness weakness or paresthesias in the extremities, she should return to the ED immediately. Otherwise she should be stable for outpatient follow-up. Results of workup and plan of care discussed with patient. She indicated understanding. Strict return precautions and anticipatory guidance given. All questions answered to her satisfaction. Patient discharged home in stable condition. Disposition: Discharged CRITICAL CARE TIME FINAL IMPRESSION 1. Frequent falls 2. Right hip pain 3. Contusion of right knee, initial encounter 4. Osteoarthritis, unspecified osteoarthritis type, unspecified site DISPOSITION Discharge 07/19/2023 09:28:10 PM PATIENT REFERRED TO: No follow-up provider specified. DISCHARGE MEDICATIONS: New Prescriptions No medications on file (Comment: Please note this report has been produced using speech recognition software and may contain errors related to that system including errors in grammar, punctuation, and spelling, as well as words and phrases that may be inappropriate. If there are any questions or concerns please feel free to contact the dictating provider for clarification.) Cuba Anna MD (electronically signed) Emergency Medicine Provider Cuba Anna MD 07/20/23 0110 [facility] 09-06-2022 Emergency department Note RN called back from Residence for report after patient left. This RN updated RN. No questions or concerns Lucy Jones RN 09/06/22 1115 [facility] 09-06-2022 Emergency department Note RN called back from [facility]idence for report after patient left. This RN updated RN. No questions or concerns Lucy Jones RN 09/06/22 1115 This RN attempted report at [facility] for patient. RN's busy, medical assistant secretary took RN name and number to return call for report if wanted. Lucy Jones RN 09/06/22 1018 DM ETA 20-30 min ([phone]) Lucy Jones RN 09/06/22 0953 Patient resting with eyes closed. Respirations even and unlabored. RN called about work order for call light / panel. Will be there soon to fix. Lucy Jones RN 09/06/22 0944 Pt back in room Lucy Jones RN 09/06/[address] Lucy Jones RN 09/06/22 0826 Patient yelling in room, due to call light not working in wall. Patient aware, patient door and curtain open. RN went in at this time. Patient wanted to check to see if she had BM. RN also made sure purewick in good position. RN will get vitals and look at orders at this time Lucy Jones RN 09/06/22 0739 Pt to x-ray in stable condition. Bárbara Hogan RN 09/06/22225 Report of to bárbara Younger RN 09/06/22220 Emergency Department Encounter Location: [facility] Patient: Patsy Juan : 1950 Date of evaluation: 09/06/2022 ED Provider: OSMAN MCCORMACK MD Time received sign-out: 0700 Patsy Juan was checked out to me by Dr. Fuentes. Please see his/her initial documentation for details of the patient's initial ED presentation, physical exam and completed studies. I did perform a substantive portion of the visit including all aspects of the Medical Decision Making. In brief, Patsy Juan is a 72 y.o. female that presented to the emergency department after a fall. I have reviewed and interpreted all of the currently available lab results and diagnostics from this visit: Results for orders placed or performed during the hospital encounter of 09/06/22 Type and Screen Result Value Ref Range ABO Grouping A Antibody Screen NEG Rh Type NEG CBC auto differential Result Value Ref Range Auto WBC 6.4 3.6 - 10.7 10*3/uL RBC 4.21 3.8 - 5.20 10*6/uL Hemoglobin 12.9 11.7 - 16.0 g/dL Hematocrit 40.1 35.0 - 47.0 % MCV 95.2 80.0 - 98.0 fL MCH 30.6 26.0 - 34.0 pg MCHC 32.2 32.0 - 36.0 % RDW 14.5 11.5 - 14.5 % Platelets 150 140 - 440 10*3/uL MPV 8.7 7.4 - 12.4 fL nRBC 0.1 0.0 - 2.0 /100 WBCs Neutrophils Relative 63.6 40.0 - 80.0 % Lymphocytes Relative 24.7 20.0 - 40.0 % Monocytes Relative 7.9 2.0 - 10.0 % Eosinophils Relative 3.3 1.0 - 6.0 % Basophils Relative 0.5 0.0 - 2.0 % Neutrophils Absolute 4.1 1.8 - 7.0 10*3/uL Lymphocytes Absolute 1.6 1.0 - 4.3 10*3/uL Monocytes Absolute 0.5 0.0 - 0.8 10*3/uL Eosinophils Absolute 0.2 0.0 - 0.5 10*3/uL Basophils Absolute 0.0 0.0 - 0.2 10*3/uL Lactic acid, plasma Result Value Ref Range LACTIC ACID 1.4 0.7 - 2.0 mmol/L Magnesium Result Value Ref Range MAGNESIUM 1.8 1.6 - 2.3 mg/dL Phosphorus Result Value Ref Range PHOSPHORUS 3.9 2.5 - 4.5 mg/dL PROTIME/INR & PTT Result Value Ref Range PROTHROMBIN TIME 18.5 (H) 9.0 - 12.0 s INR 1.8 (H) 0.9 - 1.1 APTT 33.8 (H) 20.0 - 30.5 s Drug Screen Panel, Emergency (Drugs of Abuse) Result Value Ref Range AMPHETAMINE SCREEN Negative BARBITURATES SCREEN Negative BENZODIAZEPINE SCREEN Negative COCAINE METAB. SCREEN Negative METHADONE SCREEN Negative OPIATES SCREEN Positive OXYCODONE SCREEN Negative PHENCYCLIDINE SCREEN Negative Ethanol Result Value Ref Range ETHANOL IN SER/PLAS <0.010 0.000 - 0.010 g/dL Troponin I Result Value Ref Range TROPONIN I <0.012 0.000 - 0.034 ng/mL Basic metabolic panel Result Value Ref Range SODIUM 139 135 - 145 mmol/L POTASSIUM 5.4 (H) 3.5 - 5.1 mmol/L CHLORIDE 104 98 - 107 mmol/L CARBON DIOXIDE 30 22 - 30 mmol/L UREA NITROGEN 26 (H) 7 - 17 mg/dL CREATININE 0.86 0.52 - 1.04 mg/dL GLUCOSE 144 (H) 70 - 100 mg/dL CALCIUM 9.2 8.4 - 10.4 mg/dL ANION GAP 5 3 - 13 mmol/L eGFR 72.3 >60.0 mL/min/1.73m*2 Confirmatory ABO/Rh Result Value Ref Range ABO Grouping A Rh Type NEG ECG 12 lead Result Value Ref Range Heart Rate 63 bpm QRSD Interval 104 ms QT Interval 445 ms QTC Interval 457 ms P Hewett 49 degrees QRS Hewett -29 degrees T Wave Hewett 11 degrees OK Interval 149 ms XR shoulder 2+ views left Final Result No fracture or dislocation. Report Dictated on Electronically Signed By: Tiago Charles Electronically Signed Date/Time: 09/06/2022 3:11 AM EDT XR shoulder 2+ views right Final Result No fracture or dislocation. Report Dictated on Electronically Signed By: Tiago Charles Electronically Signed Date/Time: 09/06/2022 2:[address] head wo IV contrast Final Result No acute intracranial hemorrhage or mass effect. Report Dictated on Electronically Signed By: Tiago Charles Electronically Signed Date/Time: 09/06/2022 2:[address] cervical spine wo IV contrast Final Result No cervical spine fracture. Report Dictated on Electronically Signed By: Tiago Charles Electronically Signed Date/Time: 09/06/2022 2:24 AM EDT XR pelvis 1 or 2 views Final Result Upper pelvis is excluded from the [id number]. No fracture or dislocation of the imaged pelvis. Report Dictated on Electronically Signed By: Tiago Charles Electronically Signed Date/Time: 09/06/2022 2:12 AM EDT XR chest 1 view Final Result No focal consolidation or pulmonary edema. Report Dictated on Electronically Signed By: Tiago Charles Electronically Signed Date/Time: 09/06/2022 2:[address] head wo IV contrast (Results Pending) Final ED Course and MDM: In brief, Patsy Juan is a 72 y.o. female whose care was signed out to me by the outgoing provider. In brief, the patient was signed out to me pending repeat CT head with plans to DC if negative. Medications acetaminophen (Tylenol) tablet 650 mg (has no administration in time range) Final Impression 1. Fall, initial encounter DISPOSITION (Please note that portions of this note may have been completed with a voice recognition program. Efforts were made to edit the dictations but occasionally words are mis-transcribed.) OSMAN MCCORMACK MD Acute Care [facility] Osman Mccormack MD 09/06/22 1523 Emergency Department Encounter Location: [facility] Patient: Patsy Juan : 1950 Date of evaluation: 09/06/2022 ED Provider: Gloria Frost DO Time received sign-out: 7am Patsy Juan was checked out to me by Dr RAGLAND. Please see his/her initial documentation for details of the patient's initial ED presentation, physical exam and completed studies. I did perform a substantive portion of the visit including all aspects of the Medical Decision Making. In brief, Patsy Juan is a 72 y.o. female that presented to the emergency department for a fall. She is on blood thinners. I have reviewed and interpreted all of the currently available lab results and diagnostics from this visit: Results for orders placed or performed during the hospital encounter of 09/06/22 Type and Screen Result Value Ref Range ABO Grouping A Antibody Screen NEG Rh Type NEG CBC auto differential Result Value Ref Range Auto WBC 6.4 3.6 - 10.7 10*3/uL RBC 4.21 3.8 - 5.20 10*6/uL Hemoglobin 12.9 11.7 - 16.0 g/dL Hematocrit 40.1 35.0 - 47.0 % MCV 95.2 80.0 - 98.0 fL MCH 30.6 26.0 - 34.0 pg MCHC 32.2 32.0 - 36.0 % RDW 14.5 11.5 - 14.5 % Platelets 150 140 - 440 10*3/uL MPV 8.7 7.4 - 12.4 fL nRBC 0.1 0.0 - 2.0 /100 WBCs Neutrophils Relative 63.6 40.0 - 80.0 % Lymphocytes Relative 24.7 20.0 - 40.0 % Monocytes Relative 7.9 2.0 - 10.0 % Eosinophils Relative 3.3 1.0 - 6.0 % Basophils Relative 0.5 0.0 - 2.0 % Neutrophils Absolute 4.1 1.8 - 7.0 10*3/uL Lymphocytes Absolute 1.6 1.0 - 4.3 10*3/uL Monocytes Absolute 0.5 0.0 - 0.8 10*3/uL Eosinophils Absolute 0.2 0.0 - 0.5 10*3/uL Basophils Absolute 0.0 0.0 - 0.2 10*3/uL Lactic acid, plasma Result Value Ref Range LACTIC ACID 1.4 0.7 - 2.0 mmol/L Magnesium Result Value Ref Range MAGNESIUM 1.8 1.6 - 2.3 mg/dL Phosphorus Result Value Ref Range PHOSPHORUS 3.9 2.5 - 4.5 mg/dL PROTIME/INR & PTT Result Value Ref Range PROTHROMBIN TIME 18.5 (H) 9.0 - 12.0 s INR 1.8 (H) 0.9 - 1.1 APTT 33.8 (H) 20.0 - 30.5 s Drug Screen Panel, Emergency (Drugs of Abuse) Result Value Ref Range AMPHETAMINE SCREEN Negative BARBITURATES SCREEN Negative BENZODIAZEPINE SCREEN Negative COCAINE METAB. SCREEN Negative METHADONE SCREEN Negative OPIATES SCREEN Positive OXYCODONE SCREEN Negative PHENCYCLIDINE SCREEN Negative Ethanol Result Value Ref Range ETHANOL IN SER/PLAS <0.010 0.000 - 0.010 g/dL Troponin I Result Value Ref Range TROPONIN I <0.012 0.000 - 0.034 ng/mL Basic metabolic panel Result Value Ref Range SODIUM 139 135 - 145 mmol/L POTASSIUM 5.4 (H) 3.5 - 5.1 mmol/L CHLORIDE 104 98 - 107 mmol/L CARBON DIOXIDE 30 22 - 30 mmol/L UREA NITROGEN 26 (H) 7 - 17 mg/dL CREATININE 0.86 0.52 - 1.04 mg/dL GLUCOSE 144 (H) 70 - 100 mg/dL CALCIUM 9.2 8.4 - 10.4 mg/dL ANION GAP 5 3 - 13 mmol/L eGFR 72.3 >60.0 mL/min/1.73m*2 Confirmatory ABO/Rh Result Value Ref Range ABO Grouping A Rh Type NEG ECG 12 lead Result Value Ref Range Heart Rate 63 bpm QRSD Interval 104 ms QT Interval 445 ms QTC Interval 457 ms P Hewett 49 degrees QRS Hewett -29 degrees T Wave Hewett 11 degrees OK Interval [address] head wo IV contrast Final Result No CT evidence of acute intracranial abnormality, other than mild acute sphenoid sinusitis. Report Dictated on Electronically Signed By: Gloria Darnell Electronically Signed Date/Time: 09/06/2022 8:39 AM EDT XR shoulder 2+ views left Final Result No fracture or dislocation. Report Dictated on Electronically Signed By: Tiago Charles Electronically Signed Date/Time: 09/06/2022 3:11 AM EDT XR shoulder 2+ views right Final Result No fracture or dislocation. Report Dictated on Electronically Signed By: Tiago Charles Electronically Signed Date/Time: 09/06/2022 2:[address] head wo IV contrast Final Result No acute intracranial hemorrhage or mass effect. Report Dictated on Electronically Signed By: Tiago Charles Electronically Signed Date/Time: 09/06/2022 2:[address] cervical spine wo IV contrast Final Result No cervical spine fracture. Report Dictated on Electronically Signed By: Tiago Charles Electronically Signed Date/Time: 09/06/2022 2:24 AM EDT XR pelvis 1 or 2 views Final Result Upper pelvis is excluded from the [id number]. No fracture or dislocation of the imaged pelvis. Report Dictated on Electronically Signed By: Tiago Charles Electronically Signed Date/Time: 09/06/2022 2:12 AM EDT XR chest 1 view Final Result No focal consolidation or pulmonary edema. Report Dictated on Electronically Signed By: Tiago Charles Electronically Signed Date/Time: 09/06/2022 2:12 AM EDT Final ED Course and MDM: In brief, Patsy Juan is a 72 y.o. female whose care was signed out to me by the outgoing provider. In brief, patient was activated as a surgical team. She is a fall on blood thinners. CODE STATUS is DNR. Patient states that she fell and she was trying to use the bathroom. This was a mechanical fall. Did not lose consciousness. CT imaging and x-ray imaging without any acute process or injuries. Blood work is also unremarkable. Trauma reeval the patient with tertiary exam. I also reevaluated patient as well at the bedside. Patient alert and orient x4. Under no acute distress. Appears comfortable. Vitals are all unremarkable. Plan for discharge home with close-follow up. I encouraged the patient to return to the emergency department with any worsening symptoms as previously discussed. I encouraged the patient to follow up with their primary care physician. Patient understands and patient is agreeable to this plan. Patient stable upon discharge. Medications acetaminophen (Tylenol) tablet 650 mg (650 mg Oral Given 09/06/22 0831) Final Impression 1. Fall, initial encounter DISPOSITION Discharge 09/06/2022 09:33:29 AM (Please note that portions of this note may have been completed with a voice recognition program. Efforts were made to edit the dictations but occasionally words are mis-transcribed.) Gloria Frost DO [employer] Gloria Frost DO Resident 09/06/22 1314 Bed: 23 Expected date: Expected time: Means of arrival: Comments: SX TEAM Aaron Wallace RN 09/06/22 0221 documented in this encounter [facility] 09-06-2022 Emergency department Note This RN attempted report at [facility] for patient. RN's busy, medical assistant secretary took RN name and number to return call for report if wanted. Lucy Jones RN 09/06/22 1018 [facility] 09-06-2022 Emergency department Note DM ETA 20-30 min ([phone]) Lucy Jones RN 09/06/22 0953 [facility] 09-06-2022 Hospital Discharge instructions Gloria Frost DO - 09/06/2022 9:33 AM EDT You were seen in the emergency department today. Please follow up with your primary care physician in 1-2 days. Return to the ER with any worsening symptoms as discussed previously. Please take any medication as instructed, if any was prescribed to you today. Thank you for your patience. The following attachments cannot be sent through Care Everywhere.Getting Up From a Fall (Stateless)documented in this encounter [facility] 09-06-2022 Emergency department Note Patient resting with eyes closed. Respirations even and unlabored. RN called about work order for call light / panel. Will be there soon to fix. Lucy Jones RN 09/06/22 0944 [facility] 09-06-2022 History of Present illness Narrative Department of Trauma / Critical Care Tertiary Survey Date of Trauma: 09/06/2022 1:36 AM MARIANELA/HPI: 72 y.o. female status post fall from standing. The incident happened around 0120 on 09/06/22 at [facility]. When the event happened the patient was standing and then fell to the ground. The fall was not syncopal, it was mechanical. She reportedly struck the back of her head on the bathtub. She is a DNR-[facility]. Patient pain level currently is 5/10. Patient confirms for us that she was trying to pull her diaper up when she fell to the ground. PMH: Past Medical History: Diagnosis Date Anemia of chronic disease Asthma CAD (coronary artery disease) Cerebral palsy (HCC) Diabetes (HCC) Frequent falls Lupus (CMS/HCC) (HCC) Pulmonary emboli (HCC) PSH: Past Surgical History: Procedure Laterality Date TOTAL KNEE ARTHROPLASTY Right PCP: No primary care provider on file. Physical Exam: Physical Exam Constitutional: General: She is not in acute distress. Appearance: She is obese. She is not ill-appearing, toxic-appearing or diaphoretic. Comments: Appears stated age. HENT: Head: Small posterior occipital cephalohematoma Right Ear: External ear normal. Left Ear: External ear normal. Nose: Nose normal. No rhinorrhea. Mouth/Throat: Mouth: Mucous membranes are moist. Eyes: General: No scleral icterus. Right eye: No discharge. Left eye: No discharge. Extraocular Movements: Extraocular movements intact. Conjunctiva/sclera: Conjunctivae normal. Neck: Comments: negative Cardiovascular: Rate and Rhythm: Normal rate and regular rhythm. Pulses: Normal pulses. Pulmonary: Effort: Pulmonary effort is normal. No respiratory distress. Breath sounds: No wheezing. Abdominal: General: There is distension. Palpations: There is no mass. Tenderness: There is no abdominal tenderness. There is no guarding or rebound. Genitourinary: Comments: Gluteal squeeze intact/present. Significant fungal infection to folds Musculoskeletal: General: Swelling present. No tenderness, deformity or signs of injury. Normal range of motion. Arms: Left hand skin tear Right lower leg: Edema present. Left lower leg: Edema present. Feet: Chronic wound to left foot with dressing in place Comments: Baseline weakness given cerebral palsy Skin: General: Skin is warm and dry. Findings: Erythema (Significant fungal infection to folds, breasts, genitalial region) present. Neurological: General: No focal deficit present. Mental Status: She is alert and oriented to person, place, and time. Mental status is at baseline. Cranial Nerves: No cranial nerve deficit (no gross deficits present). Psychiatric: Mood and Affect: Mood normal. Behavior: Behavior normal. Thought Content: Thought content normal. CBC with Differential: No results found for: WBC, RBC, HGB, HCT, PLT, MCV, MCH, MCHC, RDW, NRBC, SEGSPCT, BANDSPCT, BLASTSPCT, METASPCT, LYMPHOPCT, PROMYELOPCT, MONOPCT, MYELOPCT, EOSPCT, BASOPCT, MONOSABS, LYMPHSABS, EOSABS, BASOSABS, DIFFTYPE BMP: No results found for: NA, K, CL, CO2, BUN, CREATININE, CALCIUM, LABGLOM, GLUCOSE, GLU PT/INR: No results found for: PROTIME, INR Extremity PhysicalExam RUE: Tenderness: absent Edema: absent ROM: normal RLE: Tenderness: absent Edema: absent ROM: normal LUE: Tenderness:absent Edema: absent ROM: normal LLE:: absent Edema: absent ROM:normal Review of Imaging: ECG 12 lead Result Date: 09/06/2022 Sinus rhythm Borderline left axis deviation Probable lateral infarct, old Abnrm R prog, consider ASMI or lead placement XR shoulder 2+ views left Result Date: 09/06/2022 Patient Name: PATSY JUAN : 1950 Exam Date/Time: 09/06/2022 02:47 Procedure: XR SHOULDER 2+ VIEWS LEFT Ordering Provider: FUENTES CALEB Reason For Exam: Fall pain trauma LEFT SHOULDER: CLINICAL INDICATION: Pain. TECHNIQUE: Four views of the left shoulder COMPARISON: None. FINDINGS: There is no evidence for fracture or dislocation. The glenohumeral and acromioclavicular joints are unremarkable. No bone lesion is identified. There is no soft tissue abnormality. No fracture or dislocation. Report Dictated on Electronically Signed By: Tiago Charles Electronically Signed Date/Time: 09/06/2022 3:11 AM EDT XR shoulder 2+ views right Result Date: 09/06/2022 Patient Name: PATSY JUAN : 1950 Exam Date/Time: 09/06/2022 02:47 Procedure: XR SHOULDER 2+ VIEWS RIGHT Ordering Provider: HUTSON RICHARD Reason For Exam: Fall, pain trauma RIGHT SHOULDER: CLINICAL INDICATION: Fall, pain, trauma. TECHNIQUE: Four views of the right shoulder COMPARISON: None. FINDINGS: There is no evidence for fracture or dislocation. The glenohumeral and acromioclavicular joints are unremarkable. No bone lesion is identified. There is no soft tissue abnormality. No fracture or dislocation. Report Dictated on Electronically Signed By: Tiago Charles Electronically Signed Date/Time: 09/06/2022 2:[address] head wo IV contrast Result Date: 09/06/2022 Patient Name: PATSY JUAN : 1950 Exam Date/Time: 09/06/2022 08:26 Procedure: CT HEAD WO IV CONTRAST Ordering Provider: FUENTES CALEB Reason For Exam: repeat fall on thinners EXAMINATION: CT head TECHNIQUE: Axial CT images of the head were obtained without IV contrast at 3 mm intervals. Coronal and sagittal reconstructions were also provided. INDICATION: repeat fall on thinners Findings: There does appear to be slight diffuse parenchymal volume loss of the right frontal lobe which is asymmetric compared to the left. Otherwise, the ventricles, sulci and cisterns are grossly normal in size and configuration. Slightly diminished attenuation in the periventricular white matter is likely secondary to chronic small vessel ischemia. The cabrera-white differentiation is grossly intact. Probable small lacunar infarcts of the bilateral basal ganglia are noted. There are no extra-axial fluid collections or acute intracranial hemorrhage appreciated. There is no midline shift identified. The posterior fossa is grossly unremarkable. There is trace fluid posteriorly within the right sphenoid sinus. Otherwise, the paranasal sinuses and mastoid air cells are grossly clear. The bones are grossly unremarkable. There is atherosclerotic calcification of the carotid siphons. Mild atherosclerotic calcification of the distal vertebral arteries is also noted. No CT evidence of acute intracranial abnormality, other than mild acute sphenoid sinusitis. Report Dictated on Electronically Signed By: Gloria Darnell Electronically Signed Date/Time: 09/06/2022 8:[address] head wo IV contrast Result Date: 09/06/2022 Patient Name: PATSY JUAN : 1950 Exam Date/Time: 09/06/2022 02:11 Procedure: CT HEAD WO IV CONTRAST Ordering Provider: HUTSON RICHARD Reason For Exam: Trauma CT HEAD: CLINICAL INDICATION: Pain, trauma TECHNIQUE: Transaxial CT sequence performed through the head with 3 mm reconstruction. Sagittal and Coronal reconstruction images included. COMPARISON: None FINDINGS: Ventricles and sulci are prominent, consistent with age-related cerebral volume loss. There are scattered foci of hypoattenuation in the periventricular and subcortical white matter, which is nonspecific, but commonly seen with chronic small vessel ischemia. No extra-axial collection. No acute intracranial hemorrhage. No mass effect or midline shift. No CT evidence of an acute large territorial infarction. Vascular calcifications noted skull base. Imaged paranasal sinuses and mastoid air cells are well aerated. Calvarium is unremarkable. No acute intracranial hemorrhage or mass effect. Report Dictated on Electronically Signed By: Tiago Charles Electronically Signed Date/Time: 09/06/2022 2:[address] cervical spine wo IV contrast Result Date: 09/06/2022 Patient Name: PATSY JUAN : 1950 Exam Date/Time: 09/06/2022 02:11 Procedure: CT CERVICAL SPINE WO IV CONTRAST Ordering Provider: HUTSON RICHARD Reason For Exam: Trauma CT CERVICAL SPINE: CLINICAL INDICATION: Neck pain, trauma TECHNIQUE: Transaxial sequence through the cervical spine. Coronal and sagittal reconstructions included. COMPARISON: None FINDINGS: There is normal cervical lordosis. No prevertebral soft tissue swelling. Craniocervical and atlantoaxial articulations are intact. Predental interval is not widened. Vertebral body heights are maintained. No cervical spine fracture. No spondylolisthesis. There are multilevel degenerative changes of the cervical spine with intervertebral disc space narrowing, endplate osteophytes, and uncovertebral and facet joint hypertrophy, most pronounced at C5-C6. No high-grade osseous encroachment of the central canal or neural foramina. Imaged neck soft tissues and lung apices are unremarkable. No cervical spine fracture. Report Dictated on Electronically Signed By: Tiago Charles Electronically Signed Date/Time: 09/06/2022 2:24 AM EDT XR chest 1 view Result Date: 09/06/2022 Patient Name: PATSY JUAN : 1950 Exam Date/Time: 09/06/2022 02:06 Procedure: XR CHEST 1 VIEW Ordering Provider: HUTSON RICHARD Reason For Exam: TRAUMA PORTABLE CHEST CLINICAL INDICATION: Pain, trauma TECHNIQUE: Portable AP COMPARISON: None FINDINGS: No focal consolidation or pulmonary edema. No pleural effusions or pneumothorax. The cardiac and mediastinal silhouettes are normal. Degenerative change of the thoracic spine is noted. No focal consolidation or pulmonary edema. Report Dictated on Electronically Signed By: Tiago Charles Electronically Signed Date/Time: 09/06/2022 2:12 AM EDT XR pelvis 1 or 2 views Result Date: 09/06/2022 Patient Name: DRAKE ECHO : 1950 Exam Date/Time: 09/06/2022 02:07 Procedure: XR PELVIS 1-2 VIEWS Ordering Provider: HUTSON RICHARD Reason For Exam: TRAUMA PELVIS: CLINICAL INDICATION: Pain, trauma. TECHNIQUE: AP. Technical note: Upper pelvis is excluded from the [id number]. COMPARISON: None. FINDINGS: There is no evidence for fracture or dislocation. The hips joints are unremarkable. The imaged sacroiliac joints are normal. No bone lesion is identified. There is no soft tissue abnormality. Surgical clips project over the right groin. Upper pelvis is excluded from the [id number]. No fracture or dislocation of the imaged pelvis. Report Dictated on Electronically Signed By: Tiago Charles Electronically Signed Date/Time: 09/06/2022 2:12 AM EDT Incidental Findings: acute sphenoid sinusitis. Assessment: 72y F S/P fall on coumadin, no traumatic injuries Problem List: Patient Active Problem List Diagnosis Skin tear of hand without complication Cephalohematoma Acute pain of right shoulder Plan: - CT head negative X 2 - No acute traumatic injuries - Dispo per ED - Trauma will sign off - Discussed with Dr. Lima Follow up recommendations: As needed PT/OT Recommendations: pending Weight-Bearing Status: RUE: AT RLE: AT LUE: AT LLE: AT Ct [place], DIRECTOR [employer] 09/06/22 9:09 AM documented in this encounter [facility] 09-06-2022 Emergency department Note Pt back in room Lucy Jones RN 09/06/22 0832 [facility] 09-06-2022 Emergency department Note Pt at CT Luyc Jones RN 09/06/22 0826 [facility] 09-06-2022 Emergency department Note Patient yelling in room, due to call light not working in wall. Patient aware, patient door and curtain open. RN went in at this time. Patient wanted to check to see if she had BM. RN also made sure purewick in good position. RN will get vitals and look at orders at this time Lucy Jones RN 09/06/22 0739 [facility] 09-06-2022 Note NOTE: This result is for medical treatment only. Analysis performed using non-forensic procedures. [facility] 09-06-2022 Emergency department Note Pt to x-ray in stable condition. Bárbara Hogan RN 09/06/22 0226 [facility] 09-06-2022 Emergency department Note Report of to bárbara Younger RN 09/06/22220 [facility] 09-06-2022 Emergency department Note Bed: 23 Expected date: Expected time: Means of arrival: Comments: SX TEAM Aaron Wallace RN 09/06/22220 [facility] 09-06-2022 Physician Emergency department Note Emergency Department Encounter Location: [facility] Patient: Patsy Juan : 1950 Date of evaluation: 09/06/2022 ED Provider: OSMAN MCCORMACK MD Time received sign-out: 0700 Patsy Juan was checked out to me by Dr. Fuentes. Please see his/her initial documentation for details of the patient's initial ED presentation, physical exam and completed studies. I did perform a substantive portion of the visit including all aspects of the Medical Decision Making. In brief, Patsy Juan is a 72 y.o. female that presented to the emergency department after a fall. I have reviewed and interpreted all of the currently available lab results and diagnostics from this visit: Results for orders placed or performed during the hospital encounter of 09/06/22 Type and Screen Result Value Ref Range ABO Grouping A Antibody Screen NEG Rh Type NEG CBC auto differential Result Value Ref Range Auto WBC 6.4 3.6 - 10.7 10*3/uL RBC 4.21 3.8 - 5.20 10*6/uL Hemoglobin 12.9 11.7 - 16.0 g/dL Hematocrit 40.1 35.0 - 47.0 % MCV 95.2 80.0 - 98.0 fL MCH 30.6 26.0 - 34.0 pg MCHC 32.2 32.0 - 36.0 % RDW 14.5 11.5 - 14.5 % Platelets 150 140 - 440 10*3/uL MPV 8.7 7.4 - 12.4 fL nRBC 0.1 0.0 - 2.0 /100 WBCs Neutrophils Relative 63.6 40.0 - 80.0 % Lymphocytes Relative 24.7 20.0 - 40.0 % Monocytes Relative 7.9 2.0 - 10.0 % Eosinophils Relative 3.3 1.0 - 6.0 % Basophils Relative 0.5 0.0 - 2.0 % Neutrophils Absolute 4.1 1.8 - 7.0 10*3/uL Lymphocytes Absolute 1.6 1.0 - 4.3 10*3/uL Monocytes Absolute 0.5 0.0 - 0.8 10*3/uL Eosinophils Absolute 0.2 0.0 - 0.5 10*3/uL Basophils Absolute 0.0 0.0 - 0.2 10*3/uL Lactic acid, plasma Result Value Ref Range LACTIC ACID 1.4 0.7 - 2.0 mmol/L Magnesium Result Value Ref Range MAGNESIUM 1.8 1.6 - 2.3 mg/dL Phosphorus Result Value Ref Range PHOSPHORUS 3.9 2.5 - 4.5 mg/dL PROTIME/INR & PTT Result Value Ref Range PROTHROMBIN TIME 18.5 (H) 9.0 - 12.0 s INR 1.8 (H) 0.9 - 1.1 APTT 33.8 (H) 20.0 - 30.5 s Drug Screen Panel, Emergency (Drugs of Abuse) Result Value Ref Range AMPHETAMINE SCREEN Negative BARBITURATES SCREEN Negative BENZODIAZEPINE SCREEN Negative COCAINE METAB. SCREEN Negative METHADONE SCREEN Negative OPIATES SCREEN Positive OXYCODONE SCREEN Negative PHENCYCLIDINE SCREEN Negative Ethanol Result Value Ref Range ETHANOL IN SER/PLAS <0.010 0.000 - 0.010 g/dL Troponin I Result Value Ref Range TROPONIN I <0.012 0.000 - 0.034 ng/mL Basic metabolic panel Result Value Ref Range SODIUM 139 135 - 145 mmol/L POTASSIUM 5.4 (H) 3.5 - 5.1 mmol/L CHLORIDE 104 98 - 107 mmol/L CARBON DIOXIDE 30 22 - 30 mmol/L UREA NITROGEN 26 (H) 7 - 17 mg/dL CREATININE 0.86 0.52 - 1.04 mg/dL GLUCOSE 144 (H) 70 - 100 mg/dL CALCIUM 9.2 8.4 - 10.4 mg/dL ANION GAP 5 3 - 13 mmol/L eGFR 72.3 >60.0 mL/min/1.73m*2 Confirmatory ABO/Rh Result Value Ref Range ABO Grouping A Rh Type NEG ECG 12 lead Result Value Ref Range Heart Rate 63 bpm QRSD Interval 104 ms QT Interval 445 ms QTC Interval 457 ms P Hewett 49 degrees QRS Hewett -29 degrees T Wave Hewett 11 degrees OK Interval 149 ms XR shoulder 2+ views left Final Result No fracture or dislocation. Report Dictated on Electronically Signed By: Tiago Charles Electronically Signed Date/Time: 09/06/2022 3:11 AM EDT XR shoulder 2+ views right Final Result No fracture or dislocation. Report Dictated on Electronically Signed By: Tiago Charles Electronically Signed Date/Time: 09/06/2022 2:[address] head wo IV contrast Final Result No acute intracranial hemorrhage or mass effect. Report Dictated on Electronically Signed By: Tiago Charles Electronically Signed Date/Time: 09/06/2022 2:[address] cervical spine wo IV contrast Final Result No cervical spine fracture. Report Dictated on Electronically Signed By: Tiago Charles Electronically Signed Date/Time: 09/06/2022 2:24 AM EDT XR pelvis 1 or 2 views Final Result Upper pelvis is excluded from the [id number]. No fracture or dislocation of the imaged pelvis. Report Dictated on Electronically Signed By: Tiago Charles Electronically Signed Date/Time: 09/06/2022 2:12 AM EDT XR chest 1 view Final Result No focal consolidation or pulmonary edema. Report Dictated on Electronically Signed By: Tiago Charles Electronically Signed Date/Time: 09/06/2022 2:[address] head wo IV contrast (Results Pending) Final ED Course and MDM: In brief, Patsy Juan is a 72 y.o. female whose care was signed out to me by the outgoing provider. In brief, the patient was signed out to me pending repeat CT head with plans to DC if negative. Medications acetaminophen (Tylenol) tablet 650 mg (has no administration in time range) Final Impression 1. Fall, initial encounter DISPOSITION (Please note that portions of this note may have been completed with a voice recognition program. Efforts were made to edit the dictations but occasionally words are mis-transcribed.) OSMAN MCCORMACK MD Acute [facility] Osman Mccormack MD 09/06/22 1523 [employer] Phone: 09-06-2022 Physician Emergency department Note Emergency Department Encounter Location: [facility] Patient: Patsy Juan : 1950 Date of evaluation: 09/06/2022 ED Provider: Gloria Frost DO Time received sign-out: 7am Patsy Juan was checked out to me by Dr RAGLAND. Please see his/her initial documentation for details of the patient's initial ED presentation, physical exam and completed studies. I did perform a substantive portion of the visit including all aspects of the Medical Decision Making. In brief, Patsy Juan is a 72 y.o. female that presented to the emergency department for a fall. She is on blood thinners. I have reviewed and interpreted all of the currently available lab results and diagnostics from this visit: Results for orders placed or performed during the hospital encounter of 09/06/22 Type and Screen Result Value Ref Range ABO Grouping A Antibody Screen NEG Rh Type NEG CBC auto differential Result Value Ref Range Auto WBC 6.4 3.6 - 10.7 10*3/uL RBC 4.21 3.8 - 5.20 10*6/uL Hemoglobin 12.9 11.7 - 16.0 g/dL Hematocrit 40.1 35.0 - 47.0 % MCV 95.2 80.0 - 98.0 fL MCH 30.6 26.0 - 34.0 pg MCHC 32.2 32.0 - 36.0 % RDW 14.5 11.5 - 14.5 % Platelets 150 140 - 440 10*3/uL MPV 8.7 7.4 - 12.4 fL nRBC 0.1 0.0 - 2.0 /100 WBCs Neutrophils Relative 63.6 40.0 - 80.0 % Lymphocytes Relative 24.7 20.0 - 40.0 % Monocytes Relative 7.9 2.0 - 10.0 % Eosinophils Relative 3.3 1.0 - 6.0 % Basophils Relative 0.5 0.0 - 2.0 % Neutrophils Absolute 4.1 1.8 - 7.0 10*3/uL Lymphocytes Absolute 1.6 1.0 - 4.3 10*3/uL Monocytes Absolute 0.5 0.0 - 0.8 10*3/uL Eosinophils Absolute 0.2 0.0 - 0.5 10*3/uL Basophils Absolute 0.0 0.0 - 0.2 10*3/uL Lactic acid, plasma Result Value Ref Range LACTIC ACID 1.4 0.7 - 2.0 mmol/L Magnesium Result Value Ref Range MAGNESIUM 1.8 1.6 - 2.3 mg/dL Phosphorus Result Value Ref Range PHOSPHORUS 3.9 2.5 - 4.5 mg/dL PROTIME/INR & PTT Result Value Ref Range PROTHROMBIN TIME 18.5 (H) 9.0 - 12.0 s INR 1.8 (H) 0.9 - 1.1 APTT 33.8 (H) 20.0 - 30.5 s Drug Screen Panel, Emergency (Drugs of Abuse) Result Value Ref Range AMPHETAMINE SCREEN Negative BARBITURATES SCREEN Negative BENZODIAZEPINE SCREEN Negative COCAINE METAB. SCREEN Negative METHADONE SCREEN Negative OPIATES SCREEN Positive OXYCODONE SCREEN Negative PHENCYCLIDINE SCREEN Negative Ethanol Result Value Ref Range ETHANOL IN SER/PLAS <0.010 0.000 - 0.010 g/dL Troponin I Result Value Ref Range TROPONIN I <0.012 0.000 - 0.034 ng/mL Basic metabolic panel Result Value Ref Range SODIUM 139 135 - 145 mmol/L POTASSIUM 5.4 (H) 3.5 - 5.1 mmol/L CHLORIDE 104 98 - 107 mmol/L CARBON DIOXIDE 30 22 - 30 mmol/L UREA NITROGEN 26 (H) 7 - 17 mg/dL CREATININE 0.86 0.52 - 1.04 mg/dL GLUCOSE 144 (H) 70 - 100 mg/dL CALCIUM 9.2 8.4 - 10.4 mg/dL ANION GAP 5 3 - 13 mmol/L eGFR 72.3 >60.0 mL/min/1.73m*2 Confirmatory ABO/Rh Result Value Ref Range ABO Grouping A Rh Type NEG ECG 12 lead Result Value Ref Range Heart Rate 63 bpm QRSD Interval 104 ms QT Interval 445 ms QTC Interval 457 ms P Hewett 49 degrees QRS Hewett -29 degrees T Wave Hewett 11 degrees OK Interval [address] head wo IV contrast Final Result No CT evidence of acute intracranial abnormality, other than mild acute sphenoid sinusitis. Report Dictated on Electronically Signed By: Gloria Darnell Electronically Signed Date/Time: 09/06/2022 8:39 AM EDT XR shoulder 2+ views left Final Result No fracture or dislocation. Report Dictated on Electronically Signed By: Tiago Charles Electronically Signed Date/Time: 09/06/2022 3:11 AM EDT XR shoulder 2+ views right Final Result No fracture or dislocation. Report Dictated on Electronically Signed By: Tiago Charles Electronically Signed Date/Time: 09/06/2022 2:[address] head wo IV contrast Final Result No acute intracranial hemorrhage or mass effect. Report Dictated on Electronically Signed By: Tiago Charles Electronically Signed Date/Time: 09/06/2022 2:[address] cervical spine wo IV contrast Final Result No cervical spine fracture. Report Dictated on Electronically Signed By: Tiago Charles Electronically Signed Date/Time: 09/06/2022 2:24 AM EDT XR pelvis 1 or 2 views Final Result Upper pelvis is excluded from the [id number]. No fracture or dislocation of the imaged pelvis. Report Dictated on Electronically Signed By: Tiago Charles Electronically Signed Date/Time: 09/06/2022 2:12 AM EDT XR chest 1 view Final Result No focal consolidation or pulmonary edema. Report Dictated on Electronically Signed By: Tiago Charles Electronically Signed Date/Time: 09/06/2022 2:12 AM EDT Final ED Course and MDM: In brief, Patsy Juan is a 72 y.o. female whose care was signed out to me by the outgoing provider. In brief, patient was activated as a surgical team. She is a fall on blood thinners. CODE STATUS is DNR. Patient states that she fell and she was trying to use the bathroom. This was a mechanical fall. Did not lose consciousness. CT imaging and x-ray imaging without any acute process or injuries. Blood work is also unremarkable. Trauma reeval the patient with tertiary exam. I also reevaluated patient as well at the bedside. Patient alert and orient x4. Under no acute distress. Appears comfortable. Vitals are all unremarkable. Plan for discharge home with close-follow up. I encouraged the patient to return to the emergency department with any worsening symptoms as previously discussed. I encouraged the patient to follow up with their primary care physician. Patient understands and patient is agreeable to this plan. Patient stable upon discharge. Medications acetaminophen (Tylenol) tablet 650 mg (650 mg Oral Given 09/06/22 0831) Final Impression 1. Fall, initial encounter DISPOSITION Discharge 09/06/2022 09:33:29 AM (Please note that portions of this note may have been completed with a voice recognition program. Efforts were made to edit the dictations but occasionally words are mis-transcribed.) Gloria Frost DO [employer] Gloria Frost DO Resident 09/06/22 1314 [address] Phone: 04-25-2022 Miscellaneous Notes Left a detailed message for patient. Let her know that new PCP will need to be notified if there is issues with filling medicaiton. Advised to contact office with questions. I will send patient a [facility] [place] message asking about PCP. I think she is now seeing a physician at her assisted living facility. Images from the original note were not included. DENIED. Isabela Petit LPN Prior Authorization has been completed online at [employer] for Cycanocobalamin, will await response. WILLIS- [id number] Please keep encounter open until final decision has been received and documented from insurance company. Isabela Petit LPN documented in this encounter [facility] 03-12-2022 Note Hospitalist Discharg e Summary Randolph Hunter : 1950 Admit date: 03/08/2022 Discharge date: 03/12/2022 Admitting Physician: Kushal Gaines DO Primary Care Physician: No primary care provider on file. Visit Status: Admission Code Status: Limited Discharge Diagnoses: LLE cellulitis Cellulitis related to possible DM T2DM Cerebral Palsy/neuropathy/non-ambulatory Remote h/o PE's Remote h/o CAD s/p MOISE X 3 HTN Hypothyroidism SLE Hyperparathyroidism Anemia of chronic disease Thrombocytopenia Mild Hyponatremia Supratherapeutic INR Diagnosis Date Anemia of chronic disease Asthma B12 deficiency Brachial neuritis CAD (coronary artery disease) Cerebral palsy (HCC) Depression Fatty liver Frequent falls HLD (hyperlipidemia) Hyperparathyroidism (HCC) Migraine headache with aura Neuropathy Obesity Pulmonary embolism (HCC) Systemic lupus erythematosus (HCC) Type 2 diabetes mellitus (HCC) Hospital Course: See discharge diagnoses list above and medication adjustments below in med rec.The patient is discharged in improved and stable condition. Left lower extremity cellulitis is improving, discussed with stewardship, discontinued vancomycin and cefepime Started patient on Augmentin and doxycycline -we will monitor for any signs of allergy, as per the patient not sure about her allergic reactions to penicillin X-ray of left foot results reviewed, no signs of osteomyelitis. Appreciate linoleum floor layer recommendations On the day of discharge patient's INR is 5, recommended to hold Coumadin follow-up INR ordered. Discharge got delayed yesterday due to transportation. Also as patient was complaining of diarrhea C. difficile test was ordered, results negative. Patient is getting discharged today Consults: PHARMACY TO DOSE VANCOMYCIN PHARMACY TO DOSE WARFARIN IP CONSULT TO PODIATRY IP CONSULT TO HOME CARE NEEDS Discharge Instructions: Diet: ADULT DIET; Easy to Chew; 5 carb choices (75 gm/meal) Activity: as tolerated Recommended Outpatient Tests: Disposition: Patient discharged in stable condition to Home. Greater than 30 minutes spent discharging the patient and coming up with patient discharge plan. Vitals: BP 125/69 Pulse 75 Temp 97.3 ?F (36.3 ?C) (Temporal) Resp 18 Ht 5' 5" (1.651 m) Wt 213 lb (96.6 kg) SpO2 98% BMI 35.45 kg/m? Pulse Ox: SpO2 Av % Min: 96 % Max: 98 % Supplemental O2: General appearance: No apparent distress, appears stated age and cooperative with exam HEENT: Normal cephalic, atraumatic without obvious deformity. Pupils equal, round, and reactive to light. Extra ocular muscles intact. Conjunctivae/corneas clear. Neck: Supple, with full range of motion. No jugular venous distention. Trachea midline. No lymphadenopathy. Respiratory: Normal respiratory effort. Clear to auscultation, bilaterally without Rales/Wheezes/Rhonchi. Cardiovascular: Regular rate and rhythm with normal S1/S2 without murmurs, rubs or gallops. Abdomen: Soft, non-tender, non-distended with normal bowel sounds. No rebound or guarding. Musculoskeletal: No clubbing, cyanosis or edema bilaterally. Full range of motion without deformity, +2 peripheral pulses in all extremities. Skin: Discharge Medications: Medication List START taking these medications amoxicillin-clavulanate 875-125 MG per tablet Commonly known as: AUGMENTIN Take 1 tablet by mouth every 12 hours for 8 doses aspirin 81 MG EC tablet doxycycline hyclate 100 MG capsule Commonly known as: VIBRAMYCIN Take 1 capsule by mouth every 12 hours for 8 doses polyethylene glycol 17 g packet Commonly known as: GLYCOLAX Take 17 g by mouth daily as needed for Constipation CONTINUE taking these medications acetaminophen 500 MG tablet Commonly known as: TYLENOL buPROPion 150 MG extended release tablet Commonly known as: WELLBUTRIN SR calcium-vitamin D 500-200 MG-UNIT per tablet Commonly known as: OSCAL-500 cyanocobalamin 1000 MCG/ML injection fluticasone 50 MCG/ACT nasal spray Commonly known as: FLONASE HYDROcodone-acetaminophen 5-325 MG per tablet Commonly known as: NORCO hydroxychloroquine 200 MG tablet Commonly known as: PLAQUENIL levothyroxine 150 MCG tablet Commonly known as: SYNTHROID Magnesium Oxide 500 MG Tabs melatonin 10 MG Caps capsule metFORMIN 500 MG tablet Commonly known as: GLUCOPHAGE metoprolol succinate 100 MG extended release tablet Commonly known as: TOPROL XL nitroGLYCERIN 0.4 MG SL tablet Commonly known as: NITROSTAT nystatin Powd powder Commonly known as: MYCOSTATIN ramipril 5 MG capsule Commonly known as: ALTACE therapeutic multivitamin-minerals tablet traZODone 50 MG tablet Commonly known as: DESYREL Vitamin D3 50 MCG (1999) Caps warfarin 5 MG tablet Commonly known as: COUMADIN STOP taking these medications furosemide 20 MG tablet Commonly known as: LASIX guaiFENesin 600 MG extended re (more content not included)... [facility] 03-12-2022 Hospital course Narrative Images from the original note were not included. Hospitalist Discharge Summary Randolph Hunter : 1950 Admit date: 03/08/2022 Discharge date: 03/12/2022 Admitting Physician: Kushal Gaines DO Primary Care Physician: No primary care provider on file. Visit Status: Admission Code Status: Limited Discharge Diagnoses: LLE cellulitis T2DM Cerebral Palsy/neuropathy/non-ambulatory Remote h/o PE's Remote h/o CAD s/p MOISE X 3 HTN Hypothyroidism SLE Hyperparathyroidism Anemia of chronic disease Thrombocytopenia Mild Hyponatremia Supratherapeutic INR Diagnosis Date Anemia of chronic disease Asthma B12 deficiency Brachial neuritis CAD (coronary artery disease) Cerebral palsy (HCC) Depression Fatty liver Frequent falls HLD (hyperlipidemia) Hyperparathyroidism (HCC) Migraine headache with aura Neuropathy Obesity Pulmonary embolism (HCC) Systemic lupus erythematosus (HCC) Type 2 diabetes mellitus (HCC) Hospital Course: See discharge diagnoses list above and medication adjustments below in med rec.The patient is discharged in improved and stable condition. Left lower extremity cellulitis is improving, discussed with stewardship, discontinued vancomycin and cefepime Started patient on Augmentin and doxycycline -we will monitor for any signs of allergy, as per the patient not sure about her allergic reactions to penicillin X-ray of left foot results reviewed, no signs of osteomyelitis. Appreciate linoleum floor layer recommendations On the day of discharge patient's INR is 5, recommended to hold Coumadin follow-up INR ordered. Discharge got delayed yesterday due to transportation. Also as patient was complaining of diarrhea C. difficile test was ordered, results negative. Patient is getting discharged today Consults: PHARMACY TO DOSE VANCOMYCIN PHARMACY TO DOSE WARFARIN IP CONSULT TO PODIATRY IP CONSULT TO HOME CARE NEEDS Discharge Instructions: Diet: ADULT DIET; Easy to Chew; 5 carb choices (75 gm/meal) Activity: as tolerated Recommended Outpatient Tests: Disposition: Patient discharged in stable condition to Home. Greater than 30 minutes spent discharging the patient and coming up with patient discharge plan. Vitals: BP 125/69 Pulse 75 Temp 97.3 F (36.3 C) (Temporal) Resp 18 Ht 5' 5" (1.651 m) Wt 213 lb (96.6 kg) SpO2 98% BMI 35.45 kg/m Pulse Ox: SpO2 Av % Min: 96 % Max: 98 % Supplemental O2: General appearance: No apparent distress, appears stated age and cooperative with exam HEENT: Normal cephalic, atraumatic without obvious deformity. Pupils equal, round, and reactive to light. Extra ocular muscles intact. Conjunctivae/corneas clear. Neck: Supple, with full range of motion. No jugular venous distention. Trachea midline. No lymphadenopathy. Respiratory: Normal respiratory effort. Clear to auscultation, bilaterally without Rales/Wheezes/Rhonchi. Cardiovascular: Regular rate and rhythm with normal S1/S2 without murmurs, rubs or gallops. Abdomen: Soft, non-tender, non-distended with normal bowel sounds. No rebound or guarding. Musculoskeletal: No clubbing, cyanosis or edema bilaterally. Full range of motion without deformity, +2 peripheral pulses in all extremities. Skin: Discharge Medications: Medication List START taking these medications amoxicillin-clavulanate 875-125 MG per tablet Commonly known as: AUGMENTIN Take 1 tablet by mouth every 12 hours for 8 doses aspirin 81 MG EC tablet doxycycline hyclate 100 MG capsule Commonly known as: VIBRAMYCIN Take 1 capsule by mouth every 12 hours for 8 doses polyethylene glycol 17 g packet Commonly known as: GLYCOLAX Take 17 g by mouth daily as needed for Constipation CONTINUE taking these medications acetaminophen 500 MG tablet Commonly known as: TYLENOL buPROPion 150 MG extended release tablet Commonly known as: WELLBUTRIN SR calcium-vitamin D 500-200 MG-UNIT per tablet Commonly known as: OSCAL-500 cyanocobalamin 1000 MCG/ML injection fluticasone 50 MCG/ACT nasal spray Commonly known as: FLONASE HYDROcodone-acetaminophen 5-325 MG per tablet Commonly known as: NORCO hydroxychloroquine 200 MG tablet Commonly known as: PLAQUENIL levothyroxine 150 MCG tablet Commonly known as: SYNTHROID Magnesium Oxide 500 MG Tabs melatonin 10 MG Caps capsule metFORMIN 500 MG tablet Commonly known as: GLUCOPHAGE metoprolol succinate 100 MG extended release tablet Commonly known as: TOPROL XL nitroGLYCERIN 0.4 MG SL tablet Commonly known as: NITROSTAT nystatin Powd powder Commonly known as: MYCOSTATIN ramipril 5 MG capsule Commonly known as: ALTACE therapeutic multivitamin-minerals tablet traZODone 50 MG tablet Commonly known as: DESYREL Vitamin D3 50 MCG (1999 [place]) Caps warfarin 5 MG tablet Commonly known as: COUMADIN STOP taking these medications furosemide 20 MG tablet Commonly known as: LASIX guaiFENesin 600 MG extended release tablet Commonly known as: MUCINEX Where to Get Your Medications These medications were sent to [address] [phone] - F [phone] [place] [phone] amoxicillin-clavulanate 875-125 MG per tablet doxycycline hyclate 100 MG capsule polyethylene glycol 17 g packet Recommended Follow-up: No follow-up provider specified. Readmission Risk Risk of Unplanned Readmission: 16 Complexity of Follow up: [] Moderate Complexity: follow up within 7-14 calendar days (95470) [x] Severe Complexity: follow up within 7 calendar days (64383) Follow up Testing, Pending results or Referrals at Transitional Care Visit: [x] yes [] no Instructions to MA: Please call patient on day after discharge (must document patient contacted within 2 business days of discharge). Follow up questions for MA: 1. Did you get medications filled and taking them as instructed from discharge? 2. Are you following your discharge instructions from your hospital stay? 3. Please confirm patient is scheduled for a follow up appointment within the above time frame. Signed: Demetris Stone MD Division of Hospitalist Medicine Inpatient Medical Services/[facility] 03/12/2022, 2:01 PM Images from the original note were not included. Hospitalist Discharge Summary Randolph Hunter : 1950 Admit date: 03/08/2022 Discharge date: 03/11/2022 Admitting Physician: Kushal Gaines DO Primary Care Physician: No primary care provider on file. Visit Status: Admission Code Status: Limited Discharge Diagnoses: LLE cellulitis T2DM Cerebral Palsy/neuropathy/non-ambulatory Remote h/o PE's Remote h/o CAD s/p MOISE X 3 HTN Hypothyroidism SLE Hyperparathyroidism Anemia of chronic disease Thrombocytopenia Mild Hyponatremia Supratherapeutic INR Diagnosis Date Anemia of chronic disease Asthma B12 deficiency Brachial neuritis CAD (coronary artery disease) Cerebral palsy (HCC) Depression Fatty liver Frequent falls HLD (hyperlipidemia) Hyperparathyroidism (HCC) Migraine headache with aura Neuropathy Obesity Pulmonary embolism (HCC) Systemic lupus erythematosus (HCC) Type 2 diabetes mellitus (HCC) Hospital Course: See discharge diagnoses list above and medication adjustments below in med rec.The patient is discharged in improved and stable condition. Left lower extremity cellulitis is improving, discussed with stewardship, discontinued vancomycin and cefepime Started patient on Augmentin and doxycycline -we will monitor for any signs of allergy, as per the patient not sure about her allergic reactions to penicillin X-ray of left foot results reviewed, no signs of osteomyelitis. Appreciate linoleum floor layer recommendations On the day of discharge patient's INR is 5, recommended to hold Coumadin follow-up INR ordered. Consults: PHARMACY TO DOSE VANCOMYCIN PHARMACY TO DOSE WARFARIN IP CONSULT TO PODIATRY IP CONSULT TO HOME CARE NEEDS Discharge Instructions: Diet: ADULT DIET; Easy to Chew; 5 carb choices (75 gm/meal) Activity: as tolerated Recommended Outpatient Tests: Disposition: Patient discharged in stable condition to Home. Greater than 30 minutes spent discharging the patient and coming up with patient discharge plan. Vitals: BP (!) 157/79 Pulse 67 Temp 97.8 F (36.6 C) (Temporal) Resp 19 Ht 5' 5" (1.651 m) Wt 213 lb (96.6 kg) SpO2 93% BMI 35.45 kg/m Pulse Ox: SpO2 Av.5 % Min: 93 % Max: 98 % Supplemental O2: General appearance: No apparent distress, appears stated age and cooperative with exam HEENT: Normal cephalic, atraumatic without obvious deformity. Pupils equal, round, and reactive to light. Extra ocular muscles intact. Conjunctivae/corneas clear. Neck: Supple, with full range of motion. No jugular venous distention. Trachea midline. No lymphadenopathy. Respiratory: Normal respiratory effort. Clear to auscultation, bilaterally without Rales/Wheezes/Rhonchi. Cardiovascular: Regular rate and rhythm with normal S1/S2 without murmurs, rubs or gallops. Abdomen: Soft, non-tender, non-distended with normal bowel sounds. No rebound or guarding. Musculoskeletal: No clubbing, cyanosis or edema bilaterally. Full range of motion without deformity, +2 peripheral pulses in all extremities. Skin: Discharge Medications: Medication List START taking these medications amoxicillin-clavulanate 875-125 MG per tablet Commonly known as: AUGMENTIN Take 1 tablet by mouth every 12 hours for 8 doses aspirin 81 MG EC tablet doxycycline hyclate 100 MG capsule Commonly known as: VIBRAMYCIN Take 1 capsule by mouth every 12 hours for 8 doses polyethylene glycol 17 g packet Commonly known as: GLYCOLAX Take 17 g by mouth daily as needed for Constipation CONTINUE taking these medications acetaminophen 500 MG tablet Commonly known as: TYLENOL buPROPion 150 MG extended release tablet Commonly known as: WELLBUTRIN SR calcium-vitamin D 500-200 MG-UNIT per tablet Commonly known as: OSCAL-500 cyanocobalamin 1000 MCG/ML injection fluticasone 50 MCG/ACT nasal spray Commonly known as: FLONASE HYDROcodone-acetaminophen 5-325 MG per tablet Commonly known as: NORCO hydroxychloroquine 200 MG tablet Commonly known as: PLAQUENIL levothyroxine 150 MCG tablet Commonly known as: SYNTHROID Magnesium Oxide 500 MG Tabs melatonin 10 MG Caps capsule metFORMIN 500 MG tablet Commonly known as: GLUCOPHAGE metoprolol succinate 100 MG extended release tablet Commonly known as: TOPROL XL nitroGLYCERIN 0.4 MG SL tablet Commonly known as: NITROSTAT nystatin Powd powder Commonly known as: MYCOSTATIN ramipril 5 MG capsule Commonly known as: ALTACE therapeutic multivitamin-minerals tablet traZODone 50 MG tablet Commonly known as: DESYREL Vitamin D3 50 MCG (1999 [place]) Caps warfarin 5 MG tablet Commonly known as: COUMADIN STOP taking these medications furosemide 20 MG tablet Commonly known as: LASIX guaiFENesin 600 MG extended release tablet Commonly known as: MUCINEX Where to Get Your Medications These medications were sent to [address] P [phone] - F [phone] [place] [address] [place] [phone] amoxicillin-clavulanate 875-125 MG per tablet doxycycline hyclate 100 MG capsule polyethylene glycol 17 g packet Recommended Follow-up: No follow-up provider specified. Readmission Risk Risk of Unplanned Readmission: 15 Complexity of Follow up: [] Moderate Complexity: follow up within 7-14 calendar days (18540) [x] Severe Complexity: follow up within 7 calendar days (06591) Follow up Testing, Pending results or Referrals at Transitional Care Visit: [x] yes [] no Instructions to MA: Please call patient on day after discharge (must document patient contacted within 2 business days of discharge). Follow up questions for MA: 1. Did you get medications filled and taking them as instructed from discharge? 2. Are you following your discharge instructions from your hospital stay? 3. Please confirm patient is scheduled for a follow up appointment within the above time frame. Signed: Demetris Stone MD Division of Hospitalist Medicine Inpatient Medical Services/[facility] 03/11/2022, 1:36 PM documented in this encounter [facility] Work Phone: 03-11-2022 History of Present illness Narrative [facility] called this nurse to change time of picker/puller. Pt agreed to stay till morning. This nurse called [place] [phone] to inform about new picker/puller time of 9:30 am. Report called to Nurse Copeland at [facility]. Occupational Therapy Facility/Department: [facility] Occupational Therapy Daily Treatment Note Name: Randolph Hunter : 1950 Date of Service: 03/11/2022 Pt's chart reviewed. Holding therapy today due to >5 INR. Will continue to follow and re-attempt once within therapeutic range. Dianne Schuster OT Physical Therapy Facility/Department: [facility] Daily Treatment Note Name: Randolph Hunter : 1950 Date of Service: 03/11/2022 Pt's chart reviewed. Holding therapy today due to >5 INR. Will continue to follow and re-attempt once within therapeutic range. Jaida Matamoros [employer] Occupational Therapy Facility/Department: [facility] Occupational Therapy Initial Assessment Name: Randolph Hunter : 1950 Date of Service: 03/10/2022 Discharge Recommendations: (return to AL facility with OT) OT Equipment Recommendations Equipment Needed: No Patient Diagnosis(es): The encounter diagnosis was Cellulitis of left lower extremity. Past Medical History: has a past medical history of Anemia of chronic disease, Asthma, B12 deficiency, Brachial neuritis, CAD (coronary artery disease), Cerebral palsy (HCC), Depression, Fatty liver, Frequent falls, HLD (hyperlipidemia), Hyperparathyroidism (HCC), Migraine headache with aura, Neuropathy, Obesity, Pulmonary embolism (HCC), Systemic lupus erythematosus (HCC), and Type 2 diabetes mellitus (HCC). Past Surgical History: has no past surgical history on file. Assessment Performance deficits / Impairments: Decreased functional mobility ;Decreased ADL status;Decreased strength;Decreased ROM;Decreased endurance;Decreased high-level IADLs Assessment: Pt admitted from AL facility d/t fall and L LE cellulitis. Pt w/c bound at baseline, but able to stand to transfer with stand pivot technique. Pt received assist from aides at AL facility. Pt min A for LB ADLs, SBA for bed mobility. Pt would benefit from continued OT at this level of care to address above deficits. Rec return to AL facility with OT. Prognosis: Fair Decision Making: Medium Complexity History: Pt admitted from AL facility d/t fall and L LE cellulitis. Exam: AM-PAC Assistance / Modification: SBA-MOD A REQUIRES OT FOLLOW-UP: Yes Activity Tolerance Activity Tolerance: Patient limited by fatigue Activity Tolerance Comments: Pt limited by fatigue and decreased endurance this date. Plan Plan Times per Week: 8 visits Current Treatment Recommendations: Strengthening, ROM, Balance training, Functional mobility training, Endurance training, Wheelchair mobility training, Pain management, Safety education & training, Patient/Caregiver education & training, Self-Care / ADL, Home management training Plan Comment: POC made in collaboration with patient. Restrictions Restrictions/Precautions Restrictions/Precautions: Fall Risk, General Precautions, Weight Bearing Required Braces or Orthoses?: No Lower Extremity Weight Bearing Restrictions Left Lower Extremity Weight Bearing: (post-op shoe for ambulation) Subjective General Chart Reviewed: Yes Patient assessed for rehabilitation services?: Yes Family / Caregiver Present: No Subjective Subjective: Pt pleasant and cooperative. Agreeable to OT eval. Social/Functional History Social/Functional History Lives With: Spouse (Glide.) Type of Home: Assisted living Home Layout: One level Home Access: Level entry Bathroom Shower/Tub: Walk-in shower, Shower chair with back Bathroom Toilet: Handicap height Bathroom Equipment: Grab bars in shower, Grab bars around toilet, Shower chair, 3-in-1 commode Bathroom Accessibility: Accessible Home Equipment: Wheelchair-manual, Grab bars Receives Help From: Family, Home health ADL Assistance: Needs assistance Bath: Minimal assistance Dressing: Minimal assistance Grooming: Minimal assistance Toileting: Needs assistance Homemaking Assistance: Needs assistance Homemaking Responsibilities: No Ambulation Assistance: Non-ambulatory Transfer Assistance: Needs assistance Active Program Schedule Clerk: No Patient's Program Schedule Clerk Info: daughter Mode of Transportation: Car Education: na Occupation: Retired Type of Occupation: worked at [employer] Objective Heart Rate: 68 Heart Rate Source: Monitor BP: 120/67 MAP (Calculated): 84.67 Resp: 18 SpO2: 93 % Observation/Palpation Posture: Fair Observation: LE bandage intact. Safety Devices Type of Devices: Gait belt;All fall risk precautions in place;Patient at risk for falls;Call light within reach;Left in bed;Nurse notified Bed Mobility Training Bed Mobility Training: No Balance Sitting: Intact Standing: (NA this date) Transfer Training Transfer Training: No Strength: Generally decreased, functional ADL Feeding: Setup Grooming: Supervision UE Bathing: Minimal assistance LE Bathing: Minimal assistance UE Dressing: Minimal assistance LE Dressing: Minimal assistance LE Dressing Skilled Clinical Factors: Pt able to thread B LEs into briefs, requires assist to manage over hips. Pt sitting EOB to thread B LEs, then rolls left and right x2 to pull up over hips. Toileting: Moderate assistance Bed mobility Supine to Sit: Stand by assistance Sit to Supine: Stand by assistance Scooting: Stand by assistance Bed Mobility Comments: Able to use rails to pull herself up while bridging. Transfers Transfer Comments: NA this date. Pt does not have post-op shoe, states that she can't use those because it limits her during transfers. therapist attempted to explain that the post-op shoe was necessary so her wound could heal properly, pt continued to refuse. Vision Vision: Within Functional Limits Vision Exceptions: Wears glasses at all times Cognition Overall Cognitive Status: WFL Orientation Overall Orientation Status: Within Functional Limits Perception Overall Perceptual Status: WFL Education Given To: Patient Education Provided: Role of Therapy;Plan of Care;ADL Adaptive Strategies Education Method: Verbal Barriers to Learning: None Education Outcome: Verbalized understanding;Demonstrated understanding LUE AROM (degrees) LUE AROM : WFL LUE General AROM: ~100 degrees shoulder flexion grossly observed RUE AROM (degrees) RUE AROM : WFL RUE General AROM: ~100 degrees shoulder flexion grossly observed AM-PAC Score [facility] Inpatient Daily Activity Raw Score: 16 (03/10/22 144) AM-[facility] Inpatient ADL T-Scale Score : 35.96 (03/10/22 1444) ADL Inpatient CMS 0-100% Score: 53.32 (03/10/22 1444) ADL Inpatient CMS G-Code Modifier : CK (03/10/221443) Goals Short Term Goals Time Frame for Short term goals: 8 visits Short Term Goal 1: Pt will complete bed mobility mod I. Short Term Goal 2: Pt will tolerate ~5 minutes seated EOB in preparation for ADLs. Short Term Goal 3: Pt will participate in UE strengthening in preparation for transfers. Short Term Goal 4: Pt will complete functional transfers min A. Patient Goals Patient goals : to be able to transfer better into my w/c and get out of the hospital Therapy Time Individual Concurrent Group Co-treatment Time In 1316 Time Out 1351 Minutes 35 Timed Code Treatment Minutes: 15 Minutes (1 ADL) Plan of Care supervision transferred to Rehab Service Department Occupational Therapy Dianne Schuster OT Images from the original note were not included. Hospitalist Progress Note 03/10/[phone]: Please page me ([phone]) for patient care issues. [phone]: Please page [facility] night Hospitalist for any issues. Subjective: Admit Date: 03/08/2022 PCP: No primary care provider on file. Room#: 144/1441 Interval History: Patient is a sitting on the bed comfortably, denies any lower extremity pain. No other significant overnight issues. ADULT DIET; Easy to Chew; 5 carb choices (75 gm/meal) Patient Vitals for the past 96 hrs (Last 3 readings): Weight 03/08/22 1149 213 lb (96.6 kg) 24HR INTAKE/OUTPUT: Intake/Output Summary (Last 24 hours) at 03/10/2022 1302 Last data filed at 03/09/2022 1615 Gross per 24 hour Intake -- Output 1 ml Net -1 ml Past Medical History: Diagnosis Date Anemia of chronic disease Asthma B12 deficiency Brachial neuritis CAD (coronary artery disease) Cerebral palsy (HCC) Depression Fatty liver Frequent falls HLD (hyperlipidemia) Hyperparathyroidism (HCC) Migraine headache with aura Neuropathy Obesity Pulmonary embolism (HCC) Systemic lupus erythematosus (HCC) Type 2 diabetes mellitus (HCC) LABS: CBC: Recent Labs 03/08/22 1304 03/09/22 0114 WBC 8.7 5.5 RBC 3.96 3.48* HGB 12.6 11.2* HCT 36.9 31.8* MCV 93.2 91.4 RDW 14.1 13.9 PLT 132* 102* BMP: Recent Labs 03/08/22 1304 03/09/22 0114 NA 133* 135 K 4.5 3.9 CL 102 106 CO2 27 25 BUN 16 14 CREATININE 0.95 0.85 GLUCOSE 117* 84 CALCIUM 8.4 7.7* ANIONGAP 4 4 LIVER PROFILE:No results for input(s): AST, ALT, BILITOT, ALKPHOS, LABALBU, PROT in the last 72 hours. PT/INR: Recent Labs 03/08/22 1709 03/09/22 0114 03/10/22 0050 PROTIME 23.8* 24.5* 34.0* INR 2.3* 2.4* 3.4* CARDIAC ENZYMES: No results for input(s): TROPONINI in the last 72 hours. Procalcitonin: No results found for: PROCAL COVID-19 PCR: No results for input(s): COVID19 in the last 72 hours. Objective: Vitals: BP 120/67 Pulse 68 Temp (!) 96.5 F (35.8 C) (Temporal) Resp 18 Ht 5' 5" (1.651 m) Wt 213 lb (96.6 kg) SpO2 93% BMI 35.45 kg/m Pulse Ox: SpO2 Av.5 % Min: 93 % Max: 96 % Supplemental O2: General appearance: No apparent distress, appears stated age and cooperative with exam HEENT: Normal cephalic, atraumatic without obvious deformity. Pupils equal, round, and reactive to light. Extra ocular muscles intact. Conjunctivae/corneas clear. Neck: Supple, with full range of motion. No jugular venous distention. Trachea midline. No lymphadenopathy. Respiratory: Normal respiratory effort. Clear to auscultation, bilaterally without Rales/Wheezes/Rhonchi. Cardiovascular: Regular rate and rhythm with normal S1/S2 without murmurs, rubs or gallops. Abdomen: Soft, non-tender, non-distended with normal bowel sounds. No rebound or guarding. Musculoskeletal: No obvious deformities, left foot dressing is in place Skin: Left foot ulcer Neurologic: Patient has a history of cerebral palsy with left side weakness at her baseline sodium chloride sodium chloride dextrose amoxicillin-clavulanate 1 tablet Oral 2 times per day doxycycline hyclate 100 mg Oral 2 times per day hydroxychloroquine 200 mg Oral BID collagenase Topical Daily sodium chloride flush 5-40 mL IntraVENous 2 times per day sodium chloride flush 5-40 mL IntraVENous 2 times per day insulin lispro 0-8 Units SubCUTAneous TID insulin lispro 0-4 Units SubCUTAneous Nightly aspirin 81 mg Oral Daily calcium-cholecalciferol 1 tablet Oral Daily [START ON 04/06/2022] cyanocobalamin 1,000 mcg IntraMUSCular Q30 Days fluticasone 2 spray Each Nostril Daily levothyroxine 150 mcg Oral Daily magnesium oxide 400 mg Oral QAM AC melatonin 10 mg Oral Nightly miconazole Topical BID ramipril 5 mg Oral Daily traZODone 50 mg Oral Nightly buPROPion 150 mg Oral Daily metoprolol succinate 100 mg Oral Nightly Assessment LLE cellulitis T2DM Cerebral Palsy/neuropathy/non-ambulatory Remote h/o PE's Remote h/o CAD s/p MOISE X 3 HTN Hypothyroidism SLE Hyperparathyroidism Anemia of chronic disease Thrombocytopenia Mild Hyponatremia Supratherapeutic INR Plan: Left lower extremity cellulitis is improving, discussed with stewardship, discontinued vancomycin and cefepime Started patient on Augmentin and doxycycline -we will monitor for any signs of allergy, as per the patient not sure about her allergic reactions to penicillin X-ray of left foot results reviewed, no signs of osteomyelitis. Appreciate linoleum floor layer recommendations Pharmacy is managing Coumadin dosing. -am labs, replace lytes prn -increase activity -DVT prophylaxis: [] Lovenox [] Heparin [] SCDs [x] Encourage ambulation [x] Already on Anticoagulation Advance Directive: Limited Discharge planning: TBD Demetris Stone MD Division of Hospitalist Medicine Inpatient Medical Services/[facility] PAGER: [phone] Occupational Therapy Facility/Department: [facility] Occupational Therapy Initial Assessment Name: Randolph Hunter : 1950 Date of Service: 03/10/2022 Evaluation orders received and chart reviewed. Per RN, pt OK to see. Upon therapist arrival, pt on a telehealth appointment with her psychiatrist. Will re-attempt as schedule permits. Nina Wing OT Follow up ulcer left plantar foot. Wound is improved. No erythema, edema or drainage. Ulcer left foot DM II, neuropathy PE, chart reviewed. Continue current wound care. Post op shoe on with ambulation. Nutrition rescreen completed. Pt referred to RD for foot ulcer. Department of Podiatry Attending Consult Note Reason for Consult: foot wound Requesting Physician: DO Liana CHIEF COMPLAINT: left foot wound HISTORY OF PRESENT ILLNESS: The patient is a 71 y.o. female with significant past medical history of CP and DM II who presents with left foot wound and cellulitis. Past Medical History: Diagnosis Date Anemia of chronic disease Asthma B12 deficiency Brachial neuritis CAD (coronary artery disease) Cerebral palsy (HCC) Depression Fatty liver Frequent falls HLD (hyperlipidemia) Hyperparathyroidism (HCC) Migraine headache with aura Neuropathy Obesity Pulmonary embolism (HCC) Systemic lupus erythematosus (HCC) Type 2 diabetes mellitus (HCC) Past Surgical History: History reviewed. No pertinent surgical history. Current Medications: Current Facility-Administered Medications: vancomycin (VANCOCIN) 1500 mg in sodium chloride 0.9% 250 mL IVPB, 1,500 mg, IntraVENous, Q24H warfarin (COUMADIN) tablet 5 mg, 5 mg, Oral, Once hydroxychloroquine (PLAQUENIL) tablet 200 mg, 200 mg, Oral, BID collagenase ointment, , Topical, Daily sodium chloride flush 0.9 % injection 5-40 mL, 5-40 mL, IntraVENous, 2 times per day sodium chloride flush 0.9 % injection 5-40 mL, 5-40 mL, IntraVENous, PRN 0.9 % sodium chloride infusion, , IntraVENous, PRN sodium chloride flush 0.9 % injection 5-40 mL, 5-40 mL, IntraVENous, 2 times per day sodium chloride flush 0.9 % injection 5-40 mL, 5-40 mL, IntraVENous, PRN 0.9 % sodium chloride infusion, , IntraVENous, PRN acetaminophen (TYLENOL) tablet 650 mg, 650 mg, Oral, Q6H PRN OR acetaminophen (TYLENOL) suppository 650 mg, 650 mg, Rectal, Q6H PRN polyethylene glycol (GLYCOLAX) packet 17 g, 17 g, Oral, Daily PRN senna (SENOKOT) tablet 8.6 mg, 1 tablet, Oral, Daily PRN cefepime (MAXIPIME) 2000 mg IVPB minibag, 2,000 mg, IntraVENous, q8h glucose (GLUTOSE) 40 % oral gel 15 g, 15 g, Oral, PRN dextrose 50 % IV solution, 12.5 g, IntraVENous, PRN glucagon (rDNA) injection 1 mg, 1 mg, IntraMUSCular, PRN dextrose 5 % solution, 100 mL/hr, IntraVENous, PRN insulin lispro (HUMALOG) injection vial 0-8 Units, 0-8 Units, SubCUTAneous, TID WC insulin lispro (HUMALOG) injection vial 0-4 Units, 0-4 Units, SubCUTAneous, Nightly aspirin EC tablet 81 mg, 81 mg, Oral, Daily [Held by provider] acetaminophen (TYLENOL) tablet 1,000 mg, 1,000 mg, Oral, BID PRN calcium-cholecalciferol 500-200 MG-UNIT per tablet 1 tablet, 1 tablet, Oral, Daily [START ON 04/06/2022] cyanocobalamin injection 1,000 mcg, 1,000 mcg, IntraMUSCular, Q30 Days fluticasone (FLONASE) 50 MCG/ACT nasal spray 2 spray, 2 spray, Each Nostril, Daily HYDROcodone-acetaminophen (NORCO) 5-325 MG per tablet 1 tablet, 1 tablet, Oral, Q6H PRN levothyroxine (SYNTHROID) tablet 150 mcg, 150 mcg, Oral, Daily magnesium oxide (MAG-OX) tablet 400 mg, 400 mg, Oral, QAM AC melatonin capsule 10 mg, 10 mg, Oral, Nightly miconazole (MICOTIN) 2 % powder, , Topical, BID ramipril (ALTACE) capsule 5 mg, 5 mg, Oral, Daily traZODone (DESYREL) tablet 50 mg, 50 mg, Oral, Nightly buPROPion (WELLBUTRIN SR) extended release tablet 150 mg, 150 mg, Oral, Daily metoprolol succinate (TOPROL XL) extended release tablet 100 mg, 100 mg, Oral, Nightly Allergies: Adhesive tape, Ciprofloxacin, E-mycin [erythromycin], Keflex [cephalexin], Naproxen, Pcn [penicillins], Phenergan [promethazine], Statins, and Cheese Social History: TOBACCO: reports that she has never smoked. She has never used smokeless tobacco. ETOH: reports current alcohol use. DRUGS: reports no history of drug use. MARITAL STATUS: Family History: History reviewed. No pertinent family history. REVIEW OF SYSTEMS: 10 point ros neg other than HPI. PHYSICAL EXAM: Patient is seen at bedside. She is cooperative, pleasant. O X 3. NAD. Vitals: BP (!) 137/52 Pulse 77 Temp 97.4 F (36.3 C) (Temporal) Resp 19 Ht 5' 5" (1.651 m) Wt 213 lb (96.6 kg) SpO2 96% BMI 35.45 kg/m SKIN: there is a full thickness ulcer with sublesional bleeding and necrotic debris plantar left 1st metatarsal head. No active drainage NEUROLOGIC: loss of protective senses b/l feet VASCULAR: DP palpated b/L . Skin is pink and warm. MUSCULOSKELETAL: decreased muscle strength left LE . Patient is able to dorsiflex to 0 degrees. IMPRESSION/RECOMMENDATIONS: Ulcer left foot DM II, neuropathy Cellulitis left LE CP Muscle weakness left LE Foot drop left. PE, chart reviewed. Cleanse wound, apply collagenase ointment, xeroform, dsd, qd. Post op shoe when out of bed. Patient will need diabetic shoes and AFO as outpatient. Recommend outpatient podiatric follow up. Will follow. Thank you. Physical Therapy Facility/Department: [facility] Physical Therapy Initial Assessment Name: Randolph Hunter : 1950 Date of Service: 03/09/2022 Discharge Recommendations: Home with Home health PT PT Equipment Recommendations Equipment Needed: No Patient Diagnosis(es): The encounter diagnosis was Cellulitis of left lower extremity. Past Medical History: has a past medical history of Anemia of chronic disease, Asthma, B12 deficiency, Brachial neuritis, CAD (coronary artery disease), Cerebral palsy (HCC), Depression, Fatty liver, Frequent falls, HLD (hyperlipidemia), Hyperparathyroidism (HCC), Migraine headache with aura, Neuropathy, Obesity, Pulmonary embolism (HCC), Systemic lupus erythematosus (HCC), and Type 2 diabetes mellitus (HCC). Past Surgical History: has no past surgical history on file. Assessment Assessment: Randolph presents with impaired strength, ROM, posture, balance, and endurance with associated functional limitations to bed mobility, transfers, and ambulation requiring up to moderate assistance. Her condtion is evolving and requires skilled PT to address her functional limitations. Therapy Prognosis: Good Decision Making: Medium Complexity Barriers to Learning: None. Requires PT Follow-Up: Yes Activity Tolerance Activity Tolerance: Patient limited by endurance;Patient limited by fatigue Goals and/or treatment plan was established in collaboration with Randolph. Plan of Care supervision transferred to Rehab Service Department Physical Therapist. Plan Plan Plan: (3 times/week.) Plan weeks: 1 Current Treatment Recommendations: Strengthening, ROM, Balance training, Functional mobility training, Transfer training, Endurance training, Patient/Caregiver education & training, Safety education & training, Home exercise program, Neuromuscular re-education, Therapeutic activities Safety Devices Type of Devices: Gait belt, All fall risk precautions in place, Patient at risk for falls, Call light within reach, Left in bed, Nurse notified Restrictions Restrictions/Precautions Restrictions/Precautions: (Left foot wound, though no WB precautions.) Required Braces or Orthoses?: No Subjective General Chart Reviewed: Yes Patient assessed for rehabilitation services?: Yes Family / Caregiver Present: No Follows Commands: Within Functional Limits Subjective Subjective: Randolph was agreeable to PT evaluation. Social/Functional History Social/Functional History Lives With: Spouse (Glide.) Type of Home: Assisted living Home Layout: One level Home Access: Level entry Bathroom Shower/Tub: Walk-in shower, Shower chair with back Bathroom Toilet: Handicap height Bathroom Equipment: Grab bars in shower, Grab bars around toilet, Shower chair, 3-in-1 commode Bathroom Accessibility: Accessible Home Equipment: Wheelchair-manual, Grab bars Receives Help From: Family, Home health ADL Assistance: Needs assistance Toileting: Needs assistance Homemaking Assistance: Needs assistance Homemaking Responsibilities: No Ambulation Assistance: Non-ambulatory Transfer Assistance: Needs assistance Active Program Schedule Clerk: No Patient's Program Schedule Clerk Info: daughter Mode of Transportation: Car Education: na Occupation: Retired Type of Occupation: worked at [employer] Vision/Hearing Vision Vision: Within Functional Limits Vision Exceptions: Wears glasses at all times Hearing Hearing: Within functional limits Cognition Orientation Overall Orientation Status: Within Functional Limits Cognition Overall Cognitive Status: WFL Objective Heart Rate: 77 Heart Rate Source: Monitor BP: (!) 137/52 MAP (Calculated): 80.33 Resp: 19 SpO2: 96 % O2 Device: None (Room air) Observation/Palpation Posture: Good Observation: LE bandage intact. Gross Assessment AROM: Generally decreased, functional PROM: Within functional limits Strength: Grossly decreased, non-functional Coordination: Within functional limits Tone: Normal Sensation: Intact Bed mobility Supine to Sit: Stand by assistance Sit to Supine: Stand by assistance Scooting: Stand by assistance Bed Mobility Comments: Able to use rails to pull herself up while bridging. Transfers Sit to Stand: Maximum Assistance Stand to sit: Maximum Assistance Comment: Able to stand on 3rd attempt. Unable to side-step toward the HOB. Able to instructor programmable controllers FWW for 10 seconds with moderate assistance for balance. Balance Posture: Fair Sitting - Static: Good;- Sitting - Dynamic: Good;- Standing - Static: Poor Standing - Dynamic: Poor OutComes Score AM-PAC Score AM-PAC Inpatient Mobility Raw Score : 12 (03/09/221315) AM-PAC Inpatient T-Scale Score : 35.33 (03/09/221315) Mobility Inpatient CMS 0-100% Score: 68.66 (03/09/221315) Mobility Inpatient CMS G-Code Modifier : CL (03/09/221315) Tinneti Score Goals Short Term Goals Time Frame for Short term goals: 1 week. Short term goal 1: Randolph will perform bed mobility with supervision. Short term goal 2: Randolph will perform transfers with minimum assistance. Short term goal 3: Randolph will stand using a FWW for 30 seconds with moderate assistance. Patient Goals Patient goals : Fell better and go home. Education Patient Education Education Given To: Patient Education Provided: Role of Therapy;Plan of Care Education Method: Verbal Barriers to Learning: None Education Outcome: Verbalized understanding Therapy Time Individual Concurrent Group Co-treatment Time In 1150 Time Out 1216 Minutes 26 Quoc Otto PT Images from the original note were not included. Hospitalist Progress Note 03/09/2022 [id number]: Please page me ([phone]) for patient care issues. [phone]: Please page [facility] night Hospitalist for any issues. Subjective: Admit Date: 03/08/2022 PCP: No primary care provider on file. Room#: 144/1441 Interval History: Patient is a sitting on the bed comfortably, complaining of some minimal left lower extremity pain denies any chest pain shortness of breath or palpitation. Headache improved. No fevers chills or rigors. No other significant overnight issues. ADULT DIET; Easy to Chew; 5 carb choices (75 gm/meal) Patient Vitals for the past 96 hrs (Last 3 readings): Weight 03/08/22 1149 213 lb (96.6 kg) 24HR INTAKE/OUTPUT: Intake/Output Summary (Last 24 hours) at 03/09/2022 1303 Last data filed at 03/08/2022 1415 Gross per 24 hour Intake 2898 ml Output -- Net 2898 ml Past Medical History: Diagnosis Date Anemia of chronic disease Asthma B12 deficiency Brachial neuritis CAD (coronary artery disease) Cerebral palsy (HCC) Depression Fatty liver Frequent falls HLD (hyperlipidemia) Hyperparathyroidism (HCC) Migraine headache with aura Neuropathy Obesity Pulmonary embolism (HCC) Systemic lupus erythematosus (HCC) Type 2 diabetes mellitus (HCC) LABS: CBC: Recent Labs 03/08/22 1304 03/09/22 0114 WBC 8.7 5.5 RBC 3.96 3.48* HGB 12.6 11.2* HCT 36.9 31.8* MCV 93.2 91.4 RDW 14.1 13.9 PLT 132* 102* BMP: Recent Labs 03/08/22 1304 03/09/22 0114 NA 133* 135 K 4.5 3.9 CL 102 106 CO2 27 25 BUN 16 14 CREATININE 0.95 0.85 GLUCOSE 117* 84 CALCIUM 8.4 7.7* ANIONGAP 4 4 LIVER PROFILE:No results for input(s): AST, ALT, BILITOT, ALKPHOS, LABALBU, PROT in the last 72 hours. PT/INR: Recent Labs 03/08/22 1709 03/09/22 0114 PROTIME 23.8* 24.5* INR 2.3* 2.4* CARDIAC ENZYMES: No results for input(s): TROPONINI in the last 72 hours. Procalcitonin: No results found for: PROCAL COVID-19 PCR: No results for input(s): COVID19 in the last 72 hours. Objective: Vitals: BP (!) 137/52 Pulse 77 Temp 97.4 F (36.3 C) (Temporal) Resp 19 Ht 5' 5" (1.651 m) Wt 213 lb (96.6 kg) SpO2 96% BMI 35.45 kg/m Pulse Ox: SpO2 Av % Min: 96 % Max: 99 % Supplemental O2: General appearance: No apparent distress, appears stated age and cooperative with exam HEENT: Normal cephalic, atraumatic without obvious deformity. Pupils equal, round, and reactive to light. Extra ocular muscles intact. Conjunctivae/corneas clear. Neck: Supple, with full range of motion. No jugular venous distention. Trachea midline. No lymphadenopathy. Respiratory: Normal respiratory effort. Clear to auscultation, bilaterally without Rales/Wheezes/Rhonchi. Cardiovascular: Regular rate and rhythm with normal S1/S2 without murmurs, rubs or gallops. Abdomen: Soft, non-tender, non-distended with normal bowel sounds. No rebound or guarding. Musculoskeletal: No obvious deformities, left foot dressing is in place Skin: Left foot ulcer Neurologic: Patient has a history of cerebral palsy with left side weakness at her baseline sodium chloride sodium chloride dextrose vancomycin 1,500 mg IntraVENous Q24H warfarin 5 mg Oral Once sodium chloride flush 5-40 mL IntraVENous 2 times per day sodium chloride flush 5-40 mL IntraVENous 2 times per day cefepime 2,000 mg IntraVENous q8h insulin glargine 0.25 Units/kg SubCUTAneous Nightly insulin lispro 0.08 Units/kg SubCUTAneous TID WC insulin lispro 0-8 Units SubCUTAneous TID WC insulin lispro 0-4 Units SubCUTAneous Nightly aspirin 81 mg Oral Daily calcium-cholecalciferol 1 tablet Oral Daily [START ON 04/06/2022] cyanocobalamin 1,000 mcg IntraMUSCular Q30 Days fluticasone 2 spray Each Nostril Daily levothyroxine 150 mcg Oral Daily magnesium oxide 400 mg Oral QAM AC melatonin 10 mg Oral Nightly miconazole Topical BID ramipril 5 mg Oral Daily traZODone 50 mg Oral Nightly buPROPion 150 mg Oral Daily metoprolol succinate 100 mg Oral Nightly Assessment LLE cellulitis T2DM Cerebral Palsy/neuropathy/non-ambulatory Remote h/o PE's Remote h/o CAD s/p MOISE X 3 HTN Hypothyroidism SLE Hyperparathyroidism Anemia of chronic disease Thrombocytopenia Mild Hyponatremia Plan: Left lower extremity dressing is in place, continuing broad-spectrum antibiotics with cefepime and vancomycin, will discuss with ID stewardship tomorrow. X-ray of left foot results reviewed, no signs of osteomyelitis Will follow up on podiatry recommendations -am labs, replace lytes prn -increase activity -DVT prophylaxis: [x] Lovenox [] Heparin [] SCDs [x] Encourage ambulation [] Already on Anticoagulation Advance Directive: Limited Discharge planning: TBD Demetris Stone MD Division of Hospitalist Medicine Inpatient Medical Services/[facility]: [phone] Pharmacy Vancomycin Consult Follow-Up Note Current Dosin q 24 Recent Labs 03/08/22 1304 03/09/22 0114 BUN 16 14 Recent Labs 03/08/22 1304 03/09/22 0114 CREATININE 0.95 0.85 Recent Labs 03/08/22 1304 03/09/22 0114 WBC 8.7 5.5 Ht Readings from Last 1 Encounters: 03/08/22 5' 5" (1.651 m) Wt Readings from Last 1 Encounters: 03/08/22 213 lb (96.6 kg) Body mass index is 35.45 kg/m . Estimated Creatinine Clearance: 71 mL/min (based on SCr of 0.85 mg/dL). Calculated AUC: 494 mg/L.hr Assessment/Plan: Will continue dose for 1500 q 24 Pharmacy Note Vancomycin Consult Non-[facility] patients Randolph Hunter is a 71 y.o. female ordered Vancomycin for SSTI; consult received from Abiodun Lezama to manage therapy. Patient Active Problem List Diagnosis Cellulitis Allergies: Ciprofloxacin, E-mycin [erythromycin], Keflex [cephalexin], Naproxen, Pcn [penicillins], Phenergan [promethazine], and Statins Recent Labs 03/08/22 1304 BUN 16 Recent Labs 03/08/22 1304 CREATININE 0.95 Recent Labs 03/08/22 1304 WBC 8.7 Ht Readings from Last 1 Encounters: 03/08/22 5' 5" (1.651 m) Wt Readings from Last 1 Encounters: 03/08/22 213 lb (96.6 kg) Body mass index is 35.45 kg/m . Estimated CrCl calculated using actual body weight unless weight > 125% of IBW; Crockoft-Gault equation Estimated creatinine clearance 83 mL/min calculated based on 97kg body weight Plan: Will initiate vancomycin 1250 mg IV every 24 hours based on predicted AUC of 456 mg/L.hr. Goal AUC is 400-600 mg/L.hr. A random level will be scheduled for 03/09/22 0600. Thank you for the consult. Will continue to follow. documented in this encounter [facility] Work Phone: 03-11-2022 Note Hospitalist Discharg e Summary Randolph Hunter : 1950 Admit date: 03/08/2022 Discharge date: 03/11/2022 Admitting Physician: Kushal Gaines DO Primary Care Physician: No primary care provider on file. Visit Status: Admission Code Status: Limited Discharge Diagnoses: LLE cellulitis T2DM Cerebral Palsy/neuropathy/non-ambulatory Remote h/o PE's Remote h/o CAD s/p MOISE X 3 HTN Hypothyroidism SLE Hyperparathyroidism Anemia of chronic disease Thrombocytopenia Mild Hyponatremia Supratherapeutic INR Diagnosis Date Anemia of chronic disease Asthma B12 deficiency Brachial neuritis CAD (coronary artery disease) Cerebral palsy (HCC) Depression Fatty liver Frequent falls HLD (hyperlipidemia) Hyperparathyroidism (HCC) Migraine headache with aura Neuropathy Obesity Pulmonary embolism (HCC) Systemic lupus erythematosus (HCC) Type 2 diabetes mellitus (HCC) Hospital Course: See discharge diagnoses list above and medication adjustments below in med rec.The patient is discharged in improved and stable condition. Left lower extremity cellulitis is improving, discussed with stewardship, discontinued vancomycin and cefepime Started patient on Augmentin and doxycycline -we will monitor for any signs of allergy, as per the patient not sure about her allergic reactions to penicillin X-ray of left foot results reviewed, no signs of osteomyelitis. Appreciate linoleum floor layer recommendations On the day of discharge patient's INR is 5, recommended to hold Coumadin follow-up INR ordered. Consults: PHARMACY TO DOSE VANCOMYCIN PHARMACY TO DOSE WARFARIN IP CONSULT TO PODIATRY IP CONSULT TO HOME CARE NEEDS Discharge Instructions: Diet: ADULT DIET; Easy to Chew; 5 carb choices (75 gm/meal) Activity: as tolerated Recommended Outpatient Tests: Disposition: Patient discharged in stable condition to Home. Greater than 30 minutes spent discharging the patient and coming up with patient discharge plan. Vitals: BP (!) 157/79 Pulse 67 Temp 97.8 ?F (36.6 ?C) (Temporal) Resp 19 Ht 5' 5" (1.651 m) Wt 213 lb (96.6 kg) SpO2 93% BMI 35.45 kg/m? Pulse Ox: SpO2 Av.5 % Min: 93 % Max: 98 % Supplemental O2: General appearance: No apparent distress, appears stated age and cooperative with exam HEENT: Normal cephalic, atraumatic without obvious deformity. Pupils equal, round, and reactive to light. Extra ocular muscles intact. Conjunctivae/corneas clear. Neck: Supple, with full range of motion. No jugular venous distention. Trachea midline. No lymphadenopathy. Respiratory: Normal respiratory effort. Clear to auscultation, bilaterally without Rales/Wheezes/Rhonchi. Cardiovascular: Regular rate and rhythm with normal S1/S2 without murmurs, rubs or gallops. Abdomen: Soft, non-tender, non-distended with normal bowel sounds. No rebound or guarding. Musculoskeletal: No clubbing, cyanosis or edema bilaterally. Full range of motion without deformity, +2 peripheral pulses in all extremities. Skin: Discharge Medications: Medication List START taking these medications amoxicillin-clavulanate 875-125 MG per tablet Commonly known as: AUGMENTIN Take 1 tablet by mouth every 12 hours for 8 doses aspirin 81 MG EC tablet doxycycline hyclate 100 MG capsule Commonly known as: VIBRAMYCIN Take 1 capsule by mouth every 12 hours for 8 doses polyethylene glycol 17 g packet Commonly known as: GLYCOLAX Take 17 g by mouth daily as needed for Constipation CONTINUE taking these medications acetaminophen 500 MG tablet Commonly known as: TYLENOL buPROPion 150 MG extended release tablet Commonly known as: WELLBUTRIN SR calcium-vitamin D 500-200 MG-UNIT per tablet Commonly known as: OSCAL-500 cyanocobalamin 1000 MCG/ML injection fluticasone 50 MCG/ACT nasal spray Commonly known as: FLONASE HYDROcodone-acetaminophen 5-325 MG per tablet Commonly known as: NORCO hydroxychloroquine 200 MG tablet Commonly known as: PLAQUENIL levothyroxine 150 MCG tablet Commonly known as: SYNTHROID Magnesium Oxide 500 MG Tabs melatonin 10 MG Caps capsule metFORMIN 500 MG tablet Commonly known as: GLUCOPHAGE metoprolol succinate 100 MG extended release tablet Commonly known as: TOPROL XL nitroGLYCERIN 0.4 MG SL tablet Commonly known as: NITROSTAT nystatin Powd powder Commonly known as: MYCOSTATIN ramipril 5 MG capsule Commonly known as: ALTACE therapeutic multivitamin-minerals tablet traZODone 50 MG tablet Commonly known as: DESYREL Vitamin D3 50 MCG (1999 UT) Caps warfarin 5 MG tablet Commonly known as: COUMADIN STOP taking these medications furosemide 20 MG tablet Commonly known as: LASIX guaiFENesin 600 MG extended release tablet Commonly known as: MUCINEX Where to Get Your Medications These medications were sent to [address] - P [phone] - F [phone] [place] [address] (more content not included)... [facility] 03-11-2022 Hospital Discharge instructions Cleo Graff LPN - 03/11/2022 11:55 AM EDT Your physician has ordered skilled home care services for you. Your home care will be provided by: [facility] [phone] Viktoriya Danielson RN - 03/11/2022 5:43 PM EDT Continuity of Care Form Patient Name: Randolph Hunter : 1950 Admit date: 03/08/2022 Discharge date: 03/12/22 Code Status Order: Limited Advance Directives: Admitting Physician: Kushal Gaines DO PCP: No primary care provider on file. Discharging Nurse: Viktoriya Danielson Discharging Hospital Unit/Room#: 144/1441 Discharging Unit Emergency Contact: Extended Emergency Contact Information Primary Emergency Contact: Lisha Holly Mobile Relation: Child Secondary Emergency Contact: JohanAdam ([facility]) Mobile Relation: Spouse Past Surgical History: History reviewed. No pertinent surgical history. Immunization History: Immunization History Administered Date(s) Administered COVID-19, PFIZER Bivalent BOOSTER, (age 12y+), IM, 30 mcg/0.3 mL dose 12/11/2021 COVID-19, [place] Vaccine, Vaccine Unspecified 08/23/2020, 09/25/2020 Active Problems: Patient Active Problem List Diagnosis Code Cellulitis L03.90 Isolation/Infection: Isolation No Isolation Patient Infection Status Infection Onset Added Last Indicated Last Indicated By Review Planned Expiration Resolved Resolved By None active Resolved COVID-19 (Rule Out) 03/11/22 03/11/22 03/11/22 POCT COVID-19, Antigen (Ordered) 03/11/22 Rule-Out Test Resulted Nurse Assessment: Last Vital Signs: BP (!) 157/79 Pulse 67 Temp 97.8 F (36.6 C) (Temporal) Resp 19 Ht 5' 5" (1.651 m) Wt 213 lb (96.6 kg) SpO2 93% BMI 35.45 kg/m Last documented pain score (0-10 scale): Pain Level: 4 Last Weight: Wt Readings from Last 1 Encounters: 03/08/22 213 lb (96.6 kg) Mental Status: oriented, alert, coherent, logical, thought processes intact, and able to concentrate and follow conversation IV Access: - None Nursing Mobility/ADLs: Walking Dependent Transfer Dependent Bathing Dependent Dressing Dependent Toileting Dependent Feeding Independent Clinical Program Consultant Assisted Med Delivery whole Wound Care Documentation and Therapy: Wound 03/08/22 Foot Anterior;Left (Active) Wound Etiology Diabetic 03/10/222057 Dressing Status Clean;Dry;Intact 03/10/222057 Wound Cleansed Irrigated with saline 03/10/22210 Dressing/Treatment Xeroform;Loyda wrap;Other (comment) 03/10/22210 Wound Length (cm) 2 cm 03/08/221999 Wound Width (cm) 2 cm 03/08/221999 Wound Surface Area (cm^2) 4 cm^2 03/08/221999 Wound Assessment Other (Comment) 03/10/222057 Drainage Amount Scant 03/10/22 0810 Odor None 03/10/22 0810 Andra-wound Assessment Blanchable erythema;Dry/flaky;Intact 03/10/22210 Number of days: 2 Elimination: Continence: Bowel: Yes Bladder: Yes Urinary Catheter: None Colostomy/Ileostomy/Ileal Conduit: No Date of Last BM: 03/11/22 Intake/Output Summary (Last 24 hours) at 03/11/2022 1740 Last data filed at 03/10/2022 1822 Gross per 24 hour Intake 480 ml Output 800 ml Net -320 ml I/O last 3 completed shifts: In: 600 [P.O.:600] Out: 800 [Urine:800] Safety Concerns: {[facility] Safety Concerns:[id number]} Impairments/Disabilities: {[facility] Impairments/Disabilities:[id number] } Nutrition Therapy: Current Nutrition Therapy: - Oral Diet: General Routes of Feeding: Oral Liquids: Thin Liquids Daily Fluid Restriction: no Last Modified Barium Swallow with Video (Video Swallowing Test): not done Treatments at the Time of Hospital Discharge: Respiratory Treatments: no Oxygen Therapy: is not on home oxygen therapy. Ventilator: - No ventilator support Rehab Therapies: none Weight Bearing Status/Restrictions: { CC Weight Bearin} Other Medical Equipment (for information only, NOT a DME order): wheelchair Other Treatments: none Patient's personal belongings (please select all that are sent with patient): Luis Felipe Goldman RN SIGNATURE: CASE MANAGEMENT/SOCIAL WORK SECTION Inpatient Status Date: Readmission Risk Assessment Score: Readmission Risk Risk of Unplanned Readmission: 15 Discharging to Facility/ Agency Name: Address: Phone: Fax: Dialysis Facility (if applicable) Name: Address: Dialysis Schedule: Phone: Fax: [employer] signature: {Esignature:[id number]} PHYSICIAN SECTION Prognosis: {Prognosis:[id number]} Condition at Discharge: { Patient Condition:[id number]} Rehab Potential (if transferring to Rehab): {Prognosis:[id number]} Recommended Labs or Other Treatments After Discharge: Physician Certification: I certify the above information and transfer of Randolph Hunter is necessary for the continuing treatment of the diagnosis listed and that she requires {Admit to Appropriate Level of Care:22939} for {GREATER/LESS:[id number]} 30 days. Update Admission H&P: {CHP DME Changes in HandP:[id number]} PHYSICIAN SIGNATURE: {Esignature:[id number]} documented in this encounter [facility] Phone: 03-06-2022 Instructions Steven Pelaez - 03/06/2022 9:21 AM EDT Would recommend natalia to left foot daily Continue with padding on dressing to eliminate pressure Would highly recommend use of heel boots while sleeping to prevent pressure sores from developing. documented in this encounter [facility] 03-06-2022 History of Present illness Narrative FOLLOW UP PODIATRIC OFFICE VISIT Chief Complaint: This 71 year old who presents for follow up:left foot ulceration Patient presents to clinic for follow-up left foot ulceration Patient is currently using natalia to the ulceration Patient was advised to use offloading padding because she did not feel comfortable using surgical shoe. She was unable to apply padding in her shoe because she is unable to wear shoes because of the bandage She is applying padding to her dressing She does feel the wound may be improving. PAIN EVALUATION 03/06/2022 0902 Pain Level: 8 Pain Location: Foot-Left Description: Numbness;Shooting Duration Units: Weeks Frequency: Continuous Intervention/Comfort measure: Medication Comments: using natalia to wound and wrapping with gauze Hemoglobin A1C Date Value Ref Range Status 08/15/2021 6.4 (H) 4.3 - 5.6 % Final Comment: [place] [employer] guidelines indicate that patients with HgbA1c in the range 5.7-6.4% are at increased risk for development of diabetes, and intervention by lifestyle modification may be beneficial. HgbA1c greater or equal to 6.5% is considered diagnostic of diabetes. PCP: Baudilio Sultana MD PAST MEDICAL HISTORY Diagnosis Date CAD (coronary artery disease) Carotid artery stenosis Cerebral palsy (HCC) Chronic depressive personality disorder Diarrhea Dyslipidemia Edema bilat Hirsutism Hypertension Hypothyroid Insomnia Migraines Morbid obesity (HCC) Osteomyelitis of foot (HCC) Pulmonary embolism (HCC) Pulmonary embolism (HCC) 2011 SLE (systemic lupus erythematosus) (HCC) Type II or unspecified type diabetes mellitus without mention of complication, uncontrolled Unspecified asthma(493.90) Unspecified venous (peripheral) insufficiency Current Outpatient Medications Medication Sig levothyroxine (SYNTHROID) 150 mcg tablet Take 1 tablet by mouth once daily. Take on empty stomach. For thyroid HYDROcodone-acetaminophen (NORCO) 5-325 mg per tablet Take 1 tablet by mouth every 6 hours as needed for pain for up to 30 days. warfarin (COUMADIN) 5 mg tablet 7.5 mg Mon/Fri, 5 mg all other days or as directed warfarin (COUMADIN) 2.5 mg tablet 7.5 mg Mon/Fri, 5 mg all other days or as directed (Patient not taking: Reported on 02/10/2022) metFORMIN (GLUCOPHAGE) 850 mg tablet Take 1 tablet by mouth daily with breakfast. mirtazapine (REMERON) 30 mg tablet Take 1 tablet by mouth daily at bedtime. (Patient not taking: Reported on 02/10/2022) gabapentin (NEURONTIN) 600 mg tablet Take 1 tablet by mouth three times daily for 180 days. cyanocobalamin 1,000 mcg/mL Inject 1 mL intramuscularly once every month. nitroglycerin sublingual (NITROQUICK) 0.4 mg SL tablet Dissolve 1 tablet under the tongue every 5 minutes as needed for chest pain. FOR CHEST PAIN. IF NO RELIEF CALL 911 buPROPion SR (ZYBAN SR; WELLBUTRIN SR) 150 mg 12 hr tablet Take 1 tablet by mouth twice daily. ramipril (ALTACE) 5 mg capsule Take 1 capsule by mouth once daily. metoprolol succinate ER (TOPROL XL) 100 mg Take 1 tablet by mouth once daily. Syringe with Needle, Disp, (MONOJECT TB SAFETY SYRINGE) 1 mL 25 gauge x 5/8" Use as directed once a month. blood sugar diagnostic (Revel Touch VERIO TEST STRIPS) test strip Test blood sugar(s) 3 times daily. Dx: Other DM Code E11.42 Insulin: Yes ketoconazole (NIZORAL) 2 % cream Apply 1 application to affected area once daily. Syringe with Needle, Safety 3 mL 23 gauge x 1" 1 Each as directed. Use one each with Vitamin B 12 injections weekly for 3 doses and then monthly. cyanocobalamin 1,000 mcg/mL Inject 1 mL intramuscularly one time a week. fluticasone (FLONASE) 50 mcg/actuation nasal spray Use 2 Sprays in each nostril once daily. Rinse mouth after use. Magnesium Oxide 500 mg tab Take 500 mg by mouth once daily. Cholecalciferol, Vitamin D3, 50 mcg (2,000 unit) cap Take 1 capsule by mouth once daily. calcium carbonate/vitamin D2 (CALCIUM 600 WITH VITAMIN D ORAL) Take 1 tablet by mouth once daily. melatonin 10 mg tab Take 1 tablet by mouth daily at bedtime. aspirin, enteric coated (ASPIR-LOW) 81 mg EC tablet Take 1 tablet by mouth once daily. MULTIVITAMIN ORAL Take by mouth. OTC One A Day Womens Spirometers and Accessories gui Incentive spirometer. Deep breathe hourly while awake. PT/INR test meter (COAGUCHEK XS PRO) misc Check Protime weekly. Dx: pulmonary embolism, V58.61 COMPOUNDED PRESCRIPTION Hospital bed all electric with adjustable head and feet. 415.19; 343.8; 782.3; 787.91; V43.65 No current facility-administered medications for this visit. ALLERGIES Allergen Reactions Phenergan Vc [Prome* Mental Status Change Ciprofloxacin Rash Not hives. Erythromycin Itching throat Keflex [Cephalexin] Itching throat Naprosyn [Naproxen] Intolerance didn't work Paper Tape [Other] Intolerance removes skin Paxil [Paroxetine H* Mental Status Change Penicillins Hives Dioxicillin Tlzfqjp-Kbm-Krp Red* Myalgia PAST SURGICAL HISTORY Procedure Laterality Date APPENDECTOMY child ARTHROSCOPY KNEE DIAGNOSTIC W/WO SYNOVIAL BX SPX Arthroscopy, knee right ARTHRP KNE CONDYLE&PLATU MEDIAL&LAT COMPARTMENTS Right 12/2013 Dr Fany Cervantes. COLONOSCOPY FLX DX W/COLLJ SPEC WHEN PFRMD 10/23/06 COLONOSCOPY FLX DX W/COLLJ SPEC WHEN PFRMD 11/22/12 LAPAROSCOPY SURG CHOLECYSTECTOMY 06/06/09 PAST SURGICAL HISTORY OF 2005 Repair of torn R femoral artery PAST SURGICAL HISTORY OF Left foot surgery X 2 PERC TRANSL COR ANGIO 2008 Percutaneous Transluminal Coronary Angio Status TONSILLECTOMY PRIMARY/SECONDARY <AGE 13 Tonsillectomy TOTAL ABDOMINAL HYSTERECT W/WO RMVL TUBE OVARY 1998 Hysterectomy, BSO TRANSCATH STENT ADDN VESSEL,PERCUT 2004 Transcath stent addn vessel percut TRANSCATH STENT INIT VESSEL,PERCUT 2003 Transcath stent init vessel percut Physical Exam: OBJECTIVE: Constitutional: Pt is a well developed 71 year old female who is alert, oriented, cooperative and in no apparent distress. Eyes: Following during examination. No redness or drainage. Respiratory: RR normal and nonlabored. Even breathing. No evidence of distress. Psychology: Patient is engaged during conversation. Normal affect and mood. Does not appear depressed or anxious. NVSI unchanged from previous visit. Dermatological: Ulceration: #1 Location: left 1st metatarsal Measurement: 1.0 cm x 0.2 cm x 0.1 cm Base: granular with periwound hyperkeratosis No drainage or local signs of infection. Musculoskeletal/Orthopaedic: Patient has pain to palpation of left plantar foot ulceration. ASSESSMENT: (E11.621, L97.522) Diabetic ulcer of toe 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, with fat layer exposed (HCC) (primary encounter diagnosis) (E11.40) Type 2 diabetes, controlled, with neuropathy ([facility]) PLAN: Ulceration of left foot appears smaller today than past visit Ulceration debrided today with 15 blade and tissue nippers thru dermis. Total debridement was 1.0 cm x 0.2 cm x 0.1 cm. Will contiue with natalia and using pads on dressing to eliminate pressure We could use surgical shoe but patient and I agree that this is not an option because she could fall. I will have her continue with local wound care F/u in 2 weeks I would also recommend use of heel boots when sleeping to prevent getting pressure sores of heel Steven Pelaez DPM Patient presents with: Left Foot - Follow Up, Ulcer AMB ROOMING INTAKE FLOWSHEET DATA Risk Screening Do you have concerns about personal safety or safety in the home?: No Pain Pain Level: 8 Pain Location: Foot-Left Description: Numbness, Shooting Duration Units: Weeks Frequency: Continuous Intervention/Comfort measure: Medication Comments: using natalia to wound and wrapping with gauze documented in this encounter [facility] 02-28-2022 Miscellaneous Notes Patient called in requesting order for wound care. Patient stated that she is at a assisted living facility and they stated by law they most have and order from physician to preform wound care. Please place order. Erlinda Ramsey LPN documented in this encounter [facility] 02-27-2022 History of Present illness Narrative Patient daughter picked up natalia. Erlinda Ramsey LPN documented in this encounter [facility] 02-27-2022 Miscellaneous Notes Returned patients call. Informed patient that her daughter can come picker/puller natalia we will just have to make it nurse visit to charge for the natalia. Patient verbalized understanding. Patient stated her daughters name is Lisha Holly and she will be in some time today. Erlinda Ramsey LPN Pt returned call. She is not able to come in for a nurse visit, she does not have a ride. She was wanting to see if her daughter would be able to pick it up and take it to her. Returned patients call from earlier today regarding getting some more natalia. No response left VM to return call for further instructions. Patient can come to office to picker/puller natalia. We will schedule a nurse visit. Erlinda Ramsey LPN Images from the original note were not included. Steven Matamoros RN; [facility] Podiatry Pool 52 minutes ago (3:52 PM) I have not yet ordered the natalia to pharmacy. If she wishes to picker/puller at office, that may be the easiset option Steven Pelaez DPM Patient called in asking if Natalia has been sent to pharmacy? Patient asking if she can come by and picker/puller Natalia from the office? Patient states she had to cancel this morning's appointment because her transportation never showed. Patient asking for order for Natalia to be sent to [facility]. Rescheduled follow up appointment for 03/06. documented in this encounter [facility] 02-12-2022 Miscellaneous Notes Patient called in looking for results. Message from Dr. Pelaez given to patient. She verbalized understanding. documented in this encounter [facility] 02-10-2022 History of Present illness Narrative Radiology Service Progress Note PATIENT NAME: Randolph Hunter DATE OF SERVICE: February 10, 2022 TIME: 9:22 AM PATIENT IDENTITY VERIFICATION COMPLETED USING TWO (2) IDENTIFIERS: Name and Date of confirmed by patient verbally. FALL SCREENING: Has the patient had 2 falls in the last year or 1 fall with injury or currently using an Ambulatory Assistive Device (Walker, Cane, Wheelchair, Crutches, etc.)? Yes, Patient High Risk for Falls What interventions were put in place to prevent falls during this visit? Instructed Patient to Call for Help if Needed, Offered Assistance with Transfers/Clothing, Instructed Patient to Remain Seated (Not on Exam Table) Until Exam, and Increased Observations by Caregivers PATIENT GENDER DATA: Female. status: : No status: NO. PATIENT RELEVANT IMPLANT DATA REVIEWED: Not Applicable RADIOLOGY DEPARTMENT: General X-ray: Exam(s) Completed: Lower Extremity X-Ray(s): Foot, Left PERIPHERAL IV DATA: Not applicable SIGNED BY: RT Zahida(R) February 10, 2022 9:22 AM documented in this encounter [facility] 02-10-2022 Instructions Steven Pelaez - 02/10/2022 8:37 AM EDT Recommend natalia to left foot ulceration daily Would recommend placing a donut hole pad on insert to offload ulceration when wearing shoes. Color ulceration with magic marker Step on insert Place pad around marking at site of ulceration Follow-up in 2 weeks Use loyda wraps for swelling reduction. documented in this encounter [facility] 02-10-2022 History of Present illness Narrative Chief Complaint: This 71 year old female who presents with chief complaint:ulceration of left 1st metatarsal HPI Patient presents to clinic for evaluation of left foot. Patient has ulceration to the plantar aspect of left 1st metatarsa. It apparently has been present for 1.5 months. She has been seeing a linoleum floor layer in [place] who has been debriding and applying topical antibiotic cream. Patient is not currently wearing surgical shoe. She had similar ulceraiton last year and was treated with natalia. When she mentioned this to her linoleum floor layer, she was referred here. She was advised to wear compression stockings but this led to a sore on the back of her heel. She has since discontinued the stockings and the blister healed PAIN EVALUATION 02/10/2022 0819 Pain Level: 6 Pain Location: Foot-Left Description: Sharp Duration Amount of Time: 1 Duration Units: Months Frequency: Intermittent Intervention/Comfort measure: Reposition;Relaxation;Medication Hemoglobin A1C Date Value 08/15/2021 6.4 % 01/29/2021 4.8 % 03/21/2020 6.9 08/03/2019 5.3 % 05/04/2019 5.6 % 12/21/2018 5.9 % PCP: Baudilio Sultana MD PAST MEDICAL HISTORY Diagnosis Date CAD (coronary artery disease) Carotid artery stenosis Cerebral palsy (HCC) Chronic depressive personality disorder Diarrhea Dyslipidemia Edema bilat Hirsutism Hypertension Hypothyroid Insomnia Migraines Morbid obesity (HCC) Osteomyelitis of foot (HCC) Pulmonary embolism (HCC) Pulmonary embolism (HCC) 2011 SLE (systemic lupus erythematosus) (HCC) Type II or unspecified type diabetes mellitus without mention of complication, uncontrolled Unspecified asthma(493.90) Unspecified venous (peripheral) insufficiency Current Outpatient Medications Medication Sig levothyroxine (SYNTHROID) 150 mcg tablet Take 1 tablet by mouth once daily. Take on empty stomach. For thyroid HYDROcodone-acetaminophen (NORCO) 5-325 mg per tablet Take 1 tablet by mouth every 6 hours as needed for pain for up to 30 days. warfarin (COUMADIN) 5 mg tablet 7.5 mg Mon/Fri, 5 mg all other days or as directed warfarin (COUMADIN) 2.5 mg tablet 7.5 mg Mon/Fri, 5 mg all other days or as directed metFORMIN (GLUCOPHAGE) 850 mg tablet Take 1 tablet by mouth daily with breakfast. mirtazapine (REMERON) 30 mg tablet Take 1 tablet by mouth daily at bedtime. gabapentin (NEURONTIN) 600 mg tablet Take 1 tablet by mouth three times daily for 180 days. cyanocobalamin 1,000 mcg/mL Inject 1 mL intramuscularly once every month. nitroglycerin sublingual (NITROQUICK) 0.4 mg SL tablet Dissolve 1 tablet under the tongue every 5 minutes as needed for chest pain. FOR CHEST PAIN. IF NO RELIEF CALL 911 buPROPion SR (ZYBAN SR; WELLBUTRIN SR) 150 mg 12 hr tablet Take 1 tablet by mouth twice daily. ramipril (ALTACE) 5 mg capsule Take 1 capsule by mouth once daily. metoprolol succinate ER (TOPROL XL) 100 mg Take 1 tablet by mouth once daily. Syringe with Needle, Disp, (MONOJECT TB SAFETY SYRINGE) 1 mL 25 gauge x 5/8" Use as directed once a month. blood sugar diagnostic (Revel Touch VERIO TEST STRIPS) test strip Test blood sugar(s) 3 times daily. Dx: Other DM Code E11.42 Insulin: Yes ketoconazole (NIZORAL) 2 % cream Apply 1 application to affected area once daily. Syringe with Needle, Safety 3 mL 23 gauge x 1" 1 Each as directed. Use one each with Vitamin B 12 injections weekly for 3 doses and then monthly. cyanocobalamin 1,000 mcg/mL Inject 1 mL intramuscularly one time a week. fluticasone (FLONASE) 50 mcg/actuation nasal spray Use 2 Sprays in each nostril once daily. Rinse mouth after use. Magnesium Oxide 500 mg tab Take 500 mg by mouth once daily. Cholecalciferol, Vitamin D3, (VITAMIN D-3) 2,000 unit cap Take 1 capsule by mouth once daily. calcium carbonate/vitamin D2 (CALCIUM 600 WITH VITAMIN D ORAL) Take 1 tablet by mouth once daily. melatonin 10 mg tab Take 1 tablet by mouth daily at bedtime. aspirin, enteric coated (ASPIR-LOW) 81 mg EC tablet Take 1 tablet by mouth once daily. MULTIVITAMIN ORAL Take by mouth. OTC One A Day Womens Spirometers and Accessories gui Incentive spirometer. Deep breathe hourly while awake. PT/INR test meter (COAGUCHEK XS PRO) misc Check Protime weekly. Dx: pulmonary embolism, V58.61 COMPOUNDED PRESCRIPTION Hospital bed all electric with adjustable head and feet. 415.19; 343.8; 782.3; 787.91; V43.65 No current facility-administered medications for this visit. ALLERGIES Allergen Reactions Phenergan Vc [Prome* Mental Status Change Ciprofloxacin Rash Not hives. Erythromycin Itching throat Keflex [Cephalexin] Itching throat Naprosyn [Naproxen] Intolerance didn't work Paper Tape [Other] Intolerance removes skin Paxil [Paroxetine H* Mental Status Change Penicillins Hives Dioxicillin Axpnkij-Dbe-Iif Red* Myalgia PAST SURGICAL HISTORY Procedure Laterality Date APPENDECTOMY child ARTHROSCOPY KNEE DIAGNOSTIC W/WO SYNOVIAL BX SPX Arthroscopy, knee right ARTHRP KNE CONDYLE&PLATU MEDIAL&LAT COMPARTMENTS Right 12/2013 Dr Fany Cervantes. COLONOSCOPY FLX DX W/COLLJ SPEC WHEN PFRMD 10/23/06 COLONOSCOPY FLX DX W/COLLJ SPEC WHEN PFRMD 11/22/12 LAPAROSCOPY SURG CHOLECYSTECTOMY 06/06/09 PAST SURGICAL HISTORY OF 2005 Repair of torn R femoral artery PAST SURGICAL HISTORY OF Left foot surgery X 2 PERC TRANSL COR ANGIO 2008 Percutaneous Transluminal Coronary Angio Status TONSILLECTOMY PRIMARY/SECONDARY <AGE 13 Tonsillectomy TOTAL ABDOMINAL HYSTERECT W/WO RMVL TUBE OVARY 1997 Hysterectomy, BSO TRANSCATH STENT ADDN VESSEL,PERCUT 2004 Transcath stent addn vessel percut TRANSCATH STENT INIT VESSEL,PERCUT 2003 Transcath stent init vessel percut FAMILY HISTORY Problem Relation Age of Onset Asthma Mother Diabetes Mother Heart Mother Cancer Mother COLON COPD Mother Hypertension Mother Osteoporosis Father Heart Father Cancer Father lung COPD Father other (AAA) Father other (brain tumor) Brother brain other (AAA) Paternal Grandfather Social History Tobacco Use Smoking status: Never Smokeless tobacco: Never Tobacco comments: Lived with 2 smoking parents for 18 years. Spouse non-smoke. Vaping Use Vaping Use: Never used Substance Use Topics Alcohol use: Yes Comment: rare Drug use: No REVIEW OF SYSTEMS GENERAL: Negative for Malaise, significant weight loss, fever RESPIRATORY: Negative for cough, wheezing and shortness of breath CARDIOVASCULAR: Negative for chest pain, leg swelling and palpitations GI: Negative for abdominal discomfort, blood in stools or black stools and change in bowel habits : Negative for dysuria, frequency and incontinence MUSCULOSKELETAL: Negative for joint pain or swelling, back pain, and muscle pain. SKIN: Negative for lesions, rash, and itching. HEMATOLOGY/LYMPHOLOGY Negative for prolonged bleeding, bruising easily, and swollen nodes. ENDOCRINE: Negative for cold or heat intolerance, polyuria, polydipsia and goiter. NEURO: negative Physical Exam: Constitutional: Pt is a well developed 71 year old female who is alert, oriented and cooperative Eyes: Following during examination. No redness or drainage. Respiratory: RR normal and nonlabored. Even breathing. No evidence of distress or shortness of breath. Psychology: Patient is engaged during conversation. Normal affect and mood. Does not appear depressed or anxious during encounter. Vascular: Dorsalis pedis and posterior tibial pulses faintly palpable b/l Capillary Fill time < 5 seconds to digits 1-5 b/l Skin temperature warm to cool proximal to distal b/l Hair growth present to digits Neurological: absent light touch/epicritic sensation b/l absent protective sensation + significant neurological deficits Dermatological: Nails 1-5 b/l appear normal. Webspaces clean and dry 1-4 b/l. Skin appears well hydrated and supple. good color, texture, turgor. Ulceration: #1 Location: left 1st metatarsal Measurement: 1.0 cm x 0.5 cm x 0.2 cm Base: granular with periwound hyperkeratosis No drainage or local signs of infection. Musculoskeletal/Orthopaedic: Patient has no pain to palpation of b/l feet Swelling is present to b/l legs. No calf pain. Radiographs: ordered ASSESSMENT: (E11.40) Type 2 diabetes, controlled, with neuropathy (HCC) (primary encounter diagnosis) (E11.621, L97.522) Diabetic ulcer of toe 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, with fat layer exposed ([facility]) PLAN: 1. History and physical examination performed. 2. Diabetic foot exam performed. 3. Discussed ulceration of left first metataral. Today, the ulceration was debrided with tissue nippers and 15 blade thru subcutaneous tissue. Total debridement was 1.0 cm x 0.5 cm x 0.2 cm. Bleeding was controlled with pressure. Will treat with natalia. Being that I don't feel comforbable placing this patient in post-op shoe with concerns of falling, I will have her continue with sneaker but will place donut hole pad on insert to offload the ulceration. 4. Baseline xrays ordered. 5. Will have her use loyda wraps for swelling reduction if she can accommodate the loyda wraps in the shoe. If not, she can consider over the counter compression stockings. 6. F/u in 2 weeks Steven Pelaez DPM Podiatry [address] [place] [address] Dept: [phone] Dept AMB ROOMING INTAKE FLOWSHEET DATA Risk Screening Do you have concerns about personal safety or safety in the home?: No Pain Pain Level: 6 Pain Location: Foot-Left Description: Sharp Duration Amount of Time: 1 Duration Units: Months Frequency: Intermittent Intervention/Comfort measure: Reposition, Relaxation, Medication Patient presents with: Left Foot - Established Patient, Follow Up, Ulcer, Pain Erlinda Ramsey LPN documented in this encounter [facility] 11-30-2021 Miscellaneous Notes Left a detailed message for pt with information listed below. Ava Rdz LPN TC to pt, no answer, unable to leave message d/t voicemail box is full and can not accept new messages. Alberto Carpio LPN Same dose, recheck 2 Edwin Kelley PA-C Recently in assisted living, Nurse was in today gave her dosage instructions. They company that [employer] is dealing with will send the INR report in a couple days. INR is 2.4, Taking 7.5mg Mon, Wed, 5.0mg all other days, no change in diet, no missed doses, no change in medication, no unusual bruising/bleeding. Bonnie Allen LPN documented in this encounter [facility] 11-19-2021 Miscellaneous Notes Detailed message left with dosage instructions Change to 7.5 mg M and F. 5 mg a day rest of the week. Recheck one week. Last INR: INR (POCT) 3.4 11/19/2021 815 am Current dose of coumadin is: 7.5 mg M-W- and 5 mg all other days . Last date of dose change: 11/11/2021. Previous INR (date and result): 1.6 on 11/11/2021 Additional Clinical Information or narrative: no documented in this encounter [facility] 11-11-2021 Miscellaneous Notes Patient calling to ask for coumadin instructions. Went over notes below from Dr Sultana remain on same dose, 7.5 mg Thu, Thu and 5 mg all other days and recheck INR in one week with understanding. Same. Recheck one week Last INR: INR (POCT) 2.3 (EXT) 11/05/2021 Current dose of coumadin is: WF 7.5 mg, all other days 5 mg. Last date of dose change: 09-18-21 Previous INR (date and result): 10-15-21 2.1 Additional Clinical Information or narrative: no No unusual bleeding or bruising, no recent AB's, no missed doses, no diet changes. documented in this encounter [facility] 10-30-2021 Miscellaneous Notes Patient notified of results and provider's instructions. Patient verbalizes understanding. Lexi Arce RN Unable to reach patient. Left VM to return call to office. Please read below and advise. Gretel Jiang MA Same. Recheck one week Last INR: INR (POCT) 2.1 10/15/2021 Current dose of coumadin is: 7.5mg Thu/Thu and 5mg all other days. Last date of dose change: 09/18/21. Previous INR (date and result): 2.1 10/15/21 Additional Clinical Information or narrative: no documented in this encounter [facility] 10-15-2021 Miscellaneous Notes Left a detailed message with information listed below. Ava Rdz LPN Left a message for pt to call the office and ask to speak to a triage nurse. Ava Rdz LPN Same dose, Recheck 2 weeks. Thanks, Edwin Cobian PA-C Last INR: INR (POCT) 2.1 10/15/2021 Current dose of coumadin is: 7.5 mg Thu and Thursday. 5 mg all other days. Last date of dose change: 09/11/21. Previous INR (date and result): 10/08/21 2.1 Additional Clinical Information or narrative: no nothing to report. Denies any bleeding, bruising, change in appetite, missed doses, been on ATBs. Ava Rdz LPN documented in this encounter [facility] 10-15-2021 Miscellaneous Notes Spoke with pt and went over the results. Pt verbalizes understanding. Ava Rdz LPN documented in this encounter [facility] 10-14-2021 History of Present illness Narrative Radiology Service Progress Note PATIENT NAME: Randolph Hunter DATE OF SERVICE: October 14, 2021 TIME: 3:03 PM PATIENT IDENTITY VERIFICATION COMPLETED USING TWO (2) IDENTIFIERS: Name and Date of confirmed by patient verbally. FALL SCREENING: Has the patient had 2 falls in the last year or 1 fall with injury or currently using an Ambulatory Assistive Device (Walker, Cane, Wheelchair, Crutches, etc.)? Yes, Patient High Risk for Falls What interventions were put in place to prevent falls during this visit? Increased Observations by Caregivers PATIENT GENDER DATA: Female. status: : No status: NO. PATIENT RELEVANT IMPLANT DATA REVIEWED: Not Applicable RADIOLOGY DEPARTMENT: Bone Density PERIPHERAL IV DATA: Not applicable SIGNED BY: RT Jennifer(R) October 14, 2021 3:03 PM documented in this encounter [facility] 10-09-2021 Miscellaneous Notes Pt called and is notified of providers message. Pt voices understanding, and is going to call [facility]. Del Decker RN TC to pt, left message to return call to office. Alberto Carpio LPN It looks like there is a valid prescription sent 10/03/2021 for HCQ 200mg daily #28 to [facility] authorized by Kuldeep Albert Usually we don't prescribe and the new accepting provider should be able to fill crossover prescriptions. Thanks, Edwin Cobian PA-C Patient calls and states that her previous communications specialist had moved out of country. Patient states that she is in process of moving into assisted living and the [facility] will see her in regards to this. Patient asking if this can be filled for a 30 day supply? Please review and advise, Lexi Arce RN TC to pt. LM to call office, ask for triage nurse to get updates. Travis Chambers LPN Program Project Analyst accepting patient transfer should refill medication. Who are the current and future providers? We generally don't prescribe this medication. Thanks, Edwin Cobian PA-C Pt is asking if provider will order this medication for her for 1 month. She states her communications specialist will not refill it for her because she is leaving their practice, and she does not see her new provider until December. Please call and advise. Patient has been identified by name and date of : Yes Patient phones for refill(s): Pending Prescriptions Disp Refills HYDROXYCHLOROQUINE 200 MG TABLET 135 tablet 3 Sig: Take 1.5 tablets by mouth once daily. IRA: No Date of last office visit in primary care: 09/26/21 Future visit: 11/06/21 Last 2 Encounter Wt Readings: Date: Wt: 09/26/2021 99.3 kg (219 lb) 02/21/2021 91.2 kg (201 lb) Previous labs/tests for medication: Blood Pressure: BUN (mg/dL) Date Value 09/26/2021 18 08/15/2021 19 Sodium (mmol/L) Date Value 09/26/2021 142 08/15/2021 142 Last 1 Encounter BP Readings: Date: BP: 09/26/2021 142/72 Liver Function: ALT (U/L) Date Value 09/26/2021 10 08/31/2019 19 AST (U/L) Date Value 09/26/2021 21 08/31/2019 45 Please advise. Thank you. Del Decker RN documented in this encounter [facility] 10-08-2021 Miscellaneous Notes Patient instructed of dosage with teach back method. Verbalizes understanding. Same dose, recheck 2 weeks. Thanks, Edwin Cobian PA-C Last INR: INR (POCT) 2.1(EXT) 10/08/2021 Current dose of coumadin is: 7.5 mg Wed/Thu and 5.0 mg all other days. Last date of dose change: 09/11/21. Previous INR (date and result): 2.6 Additional Clinical Information or narrative: yes: Pt states no changes in diet denies increase in greens or alcohol use, no missed doses, not on any antibiotics, no increased bruising or bleeding issues. documented in this encounter [facility] 10-01-2021 Miscellaneous Notes Patient instructed of dosage with teach back method. Verbalizes understanding. Same. Recheck one week Last INR: INR (POCT) 2.6(EXT) 10/01/2021 Current dose of coumadin is: 7.5 mg W/F, and 5.0 mg every other day. Last date of dose change: 09/11/2021. Previous INR (date and result): 09/25/21 and 2.2 Additional Clinical Information or narrative: yes: no changes in diet denies increase in greens or alcohol use, no missed doses, no antibiotics, no increased bruising or bleeding issues. documented in this encounter [facility] 10-01-2021 Miscellaneous Notes Refaxed form with both Beth as well They were already sent. Let them know about the med change and follow up lab. See last weeks TE. She can be changed to regular diet. Let the assisted living facility know. Pt called in and reports she had her physical and provider was supposed to fax forms to Assisted Living. She did not know if he was waiting on Adam to come in and he was going to fax both. Pt would also like provider to change her diet from count carb to regular. She states she does much better when she can choose what she eats and just watches it on her own. Pt also reports you changed her thyroid medication, she states you need to send a note reflecting this to [facility] or they will not let her have the higher dose. Please call and advise. documented in this encounter [facility] 09-27-2021 Miscellaneous Notes Patient notified of results, verbalizes understanding of instructions. Travis Chambers LPN Thyroid is improving but still slightly low. Can we change synthroid to 150 mcg and recheck tsh in six weeks documented in this encounter [facility] 09-26-2021 Instructions Baudilio Sultana MD - 09/26/2021 11:55 AM EDT BONE MINERAL DENSITY PATIENT INSTRUCTIONS ======= Bone mineral density testing measures the amount of calcium in certain parts of your bones. This information determines how strong your bones are. The test is used to detect osteoporosis, a disease in which the bone's mineral content and density are low, increasing a person's risk of fractures. The lumbar spine (lower back) and the hip are the skeletal sites usually examined. For the test, remember that: 1. You cannot take this test if you are . 2. Eat a normal diet on the day of the test. 3. Take your medications as you normally would. 4. DO NOT take calcium supplements (such as Tums) for 24 hours before the test. 5. On the day of the test, leave valuables (jewelry or credit cards) at home. 6. The test should be performed prior to oral, rectal or IV contrast studies, or at least 7 days after any of these studies. For the test, you may be asked to wear a hospital gown. You will lie on your back, on a padded table, in a comfortable position. Generally, you can resume your usual activities immediately. documented in this encounter [facility] 09-26-2021 History of Present illness Narrative Patient presents with: Physical: moving into assisted living HPI: Patient presents today for office visit for follow up. Needs forms completed for assisted living facility[facility] in [place]. She is both excited and nervous about the move. Will be transitioning to [facility]. She asked us to do the [place] through October until the new physician has taken over her care. Forms completed. Needs help with things like bathing, dressing, prepping food. She is wheelchair bound. DM: last hba1c was 6.4 in 08/13 Sugars are stable. Have checked her lipids as well Most recent cbc was good. Her last thyroid test was ordered but not done. Just had her b12 shot yesterday. HYPERTENSION:No chest pain or shortness of breath. No worsening edema. Had canceled her last carotid check. Will recheck. Emotionally is doing well. No issues with meds. Chronic pain meds still help her to perform her daily tasks. No issues with their use. Aware of risks and benefits. oarrs done. See previous ov from June 2021: Foot is healed. Sees podiatry again in June. Sugars have been good. No hypoglycemic spells. Feels cold at times Has noticed is worse over the last few months. She did have labs done by rheum and showed some decreased levels. Has been taking it religiously. inr has been stable. No bleeding issues. No chest pain or shortness of breath Pain meds still help her to functions. No issues with misuse of meds. Oars done. Has signed controlled substance agreement. Neuro issues have been stable. MEDICATIONS: Current Outpatient Medications Medication Sig warfarin (COUMADIN) 5 mg tablet 7.5 mg Wed/Fri, 5 mg all other days or as directed warfarin (COUMADIN) 2.5 mg tablet 7.5 mg Wed/Fri, 5 mg all other days or as directed metFORMIN (GLUCOPHAGE) 850 mg tablet Take 1 tablet by mouth daily with breakfast. HYDROcodone-acetaminophen (NORCO) 5-325 mg per tablet Take 1 tablet by mouth every 6 hours as needed for pain for up to 30 days. levothyroxine (SYNTHROID) 137 mcg tablet TAKE 1 TABLET BY MOUTH ONCE DAILY ON AN EMPTY STOMACH FOR THYROID mirtazapine (REMERON) 30 mg tablet Take 1 tablet by mouth daily at bedtime. gabapentin (NEURONTIN) 600 mg tablet Take 1 tablet by mouth three times daily for 180 days. cyanocobalamin 1,000 mcg/mL Inject 1 mL intramuscularly once every month. nitroglycerin sublingual (NITROQUICK) 0.4 mg SL tablet Dissolve 1 tablet under the tongue every 5 minutes as needed for chest pain. FOR CHEST PAIN. IF NO RELIEF CALL 911 buPROPion SR (ZYBAN SR; WELLBUTRIN SR) 150 mg 12 hr tablet Take 1 tablet by mouth twice daily. ramipril (ALTACE) 5 mg capsule Take 1 capsule by mouth once daily. metoprolol succinate ER (TOPROL XL) 100 mg Take 1 tablet by mouth once daily. Syringe with Needle, Disp, (MONOJECT TB SAFETY SYRINGE) 1 mL 25 gauge x 5/8" Use as directed once a month. blood sugar diagnostic (Revel Touch VERIO TEST STRIPS) test strip Test blood sugar(s) 3 times daily. Dx: Other DM Code E11.42 Insulin: Yes ketoconazole (NIZORAL) 2 % cream Apply 1 application to affected area once daily. Syringe with Needle, Safety 3 mL 23 gauge x 1" 1 Each as directed. Use one each with Vitamin B 12 injections weekly for 3 doses and then monthly. cyanocobalamin 1,000 mcg/mL Inject 1 mL intramuscularly one time a week. fluticasone (FLONASE) 50 mcg/actuation nasal spray Use 2 Sprays in each nostril once daily. Rinse mouth after use. Magnesium Oxide 500 mg tab Take 500 mg by mouth once daily. Cholecalciferol, Vitamin D3, (VITAMIN D-3) 2,000 unit cap Take 1 capsule by mouth once daily. calcium carbonate/vitamin D2 (CALCIUM 600 WITH VITAMIN D ORAL) Take 1 tablet by mouth once daily. melatonin 10 mg tab Take 1 tablet by mouth daily at bedtime. aspirin, enteric coated (ASPIR-LOW) 81 mg EC tablet Take 1 tablet by mouth once daily. MULTIVITAMIN ORAL Take by mouth. OTC One A Day Womens Spirometers and Accessories gui Incentive spirometer. Deep breathe hourly while awake. PT/INR test meter (COAGUCHEK XS PRO) misc Check Protime weekly. Dx: pulmonary embolism, V58.61 COMPOUNDED PRESCRIPTION Hospital bed all electric with adjustable head and feet. 415.19; 343.8; 782.3; 787.91; V43.65 No current facility-administered medications for this visit. ALLERGIES: ALLERGIES Allergen Reactions Phenergan Vc [Prome* Mental Status Change Ciprofloxacin Rash Not hives. Erythromycin Itching throat Keflex [Cephalexin] Itching throat Naprosyn [Naproxen] Intolerance didn't work Paper Tape [Other] Intolerance removes skin Paxil [Paroxetine H* Mental Status Change Penicillins Hives Dioxicillin Isefaxh-Dij-Ckz Red* Myalgia PAST MEDICAL HISTORY Diagnosis Date CAD (coronary artery disease) Carotid artery stenosis Cerebral palsy (HCC) Chronic depressive personality disorder Diarrhea Dyslipidemia Edema bilat Hirsutism Hypertension Hypothyroid Insomnia Migraines Morbid obesity (HCC) Osteomyelitis of foot (HCC) Pulmonary embolism (HCC) Pulmonary embolism (HCC) 2011 SLE (systemic lupus erythematosus) (HCC) Type II or unspecified type diabetes mellitus without mention of complication, uncontrolled Unspecified asthma(493.90) Unspecified venous (peripheral) insufficiency PAST SURGICAL HISTORY Procedure Laterality Date APPENDECTOMY child ARTHROSCOPY KNEE DIAGNOSTIC W/WO SYNOVIAL BX SPX Arthroscopy, knee right ARTHRP KNE CONDYLE&PLATU MEDIAL&LAT COMPARTMENTS Right 12/2013 Dr Fany Cervantes. COLONOSCOPY FLX DX W/COLLJ SPEC WHEN PFRMD 10/23/06 COLONOSCOPY FLX DX W/COLLJ SPEC WHEN PFRMD 11/22/12 LAPAROSCOPY SURG CHOLECYSTECTOMY 06/06/09 PAST SURGICAL HISTORY OF 2005 Repair of torn R femoral artery PAST SURGICAL HISTORY OF Left foot surgery X 2 PERC TRANSL COR ANGIO 2008 Percutaneous Transluminal Coronary Angio Status TONSILLECTOMY PRIMARY/SECONDARY <AGE 13 Tonsillectomy TOTAL ABDOMINAL HYSTERECT W/WO RMVL TUBE OVARY 1998 Hysterectomy, BSO TRANSCATH STENT ADDN VESSEL,PERCUT 2005 Transcath stent addn vessel percut TRANSCATH STENT INIT VESSEL,PERCUT 2003 Transcath stent init vessel percut FAMILY HISTORY Problem Relation Age of Onset Asthma Mother Diabetes Mother Heart Mother Cancer Mother COLON COPD Mother Hypertension Mother Osteoporosis Father Heart Father Cancer Father lung COPD Father other (AAA) Father other (brain tumor) Brother brain other (AAA) Paternal Grandfather Social History Tobacco Use Smoking status: Never Smoker Smokeless tobacco: Never Used Tobacco comment: Lived with 2 smoking parents for 18 years. Spouse non-smoke. Vaping Use Vaping Use: Never used Substance Use Topics Alcohol use: Yes Comment: rare Drug use: No Reviewed current medications, allergies, past medical history, surgical history, family history and social history today. REVIEW OF SYSTEMS All other reviewed and negative other than HPI. HEALTH MAINTENANCE: Reviewed health maintenance issues today and recommended the following in detail. SHINGRIX VACCINE(2 of 3) due on 05/26/2016 BONE DENSITY Never done MAMMOGRAM -declines ADVANCE DIRECTIVE DISCUSSION -Discussed advanced planning with patient today. They have a DPOA/Living Will:Yes Chosen surrogate for decision maker:Feliberto Bright DPOA/Living Will forms given:NA Forms on file. DILATED RETINAL EXAM due soon Still seeing podiatry VITALS: BP 142/72 Pulse 68 Wt 99.3 kg (219 lb) BMI 35.35 kg/m Last 4 Encounter Wt Readings: Date: Wt: 09/26/2021 99.3 kg (219 lb) 02/21/2021 91.2 kg (201 lb) 11/09/2020 89.4 kg (197 lb) 03/07/2020 92.1 kg (203 lb) PHYSICAL EXAMINATION: General appearance: Well appearing, alert, in no acute distress, well-hydrated, well nourished. Wheelchair. Skin: Skin color, texture, turgor normal, no suspicious rashes or lesions Head: Normocephalic, no masses, lesions, tenderness or abnormalities Lungs: Lungs clear to auscultation. No wheezing, rhonchi, rales Heart: RRR without murmur, gallop, or rubs. No ectopy Abdomen: Normal abdominal exam, Abdomen soft, non-tender. Bowel sounds normal. No masses, organomegaly Extremities: No deformities, skin discoloration, clubbing or cyanosis. Good capillary refill. One plus edema Neuro: no change ASSESSMENT/PLAN: 1. Cerebral palsy, unspecified type (HCC) - ICD9: 343.9, ICD10: G80.9 (primary diagnosis) - forms completed. Will give script for her norma. - CONSULT TO PHYSICAL THERAPY - CONSULT TO FEED MANAGEMENT ADVISOR 2. Carotid artery disease, unspecified laterality, unspecified type (HCC) - ICD9: 447.9, ICD10: I77.9 - recheck - US CAROTID ARTERIES [facility] 3. Type 2 diabetes, controlled, with neuropathy (HCC) - ICD9: 250.60, 357.2, ICD10: E11.40 Controlled. - Continue current medications - COMP METABOLIC PANEL 4. Diabetic polyneuropathy associated with type 2 diabetes mellitus (HCC) - ICD9: 250.60, 357.2, ICD10: E11.42 Controlled. - Continue current medications 5. Other pulmonary embolism without acute cor pulmonale, unspecified chronicity (HCC) - ICD9: 415.19, ICD10: I26.99 - continue chronic coumadin. Follow inr's 6. Vitamin B12 deficiency - ICD9: 266.2, ICD10: E53.8 - recheck - VITAMIN B12 BLOOD 7. Acquired hypothyroidism - ICD9: 244.9, ICD10: E03.9 - check labs. - TSH BLD 8. Depression, recurrent (HCC) - ICD9: 296.30, ICD10: F33.9 - continue meds. 9. Disorder of bone and cartilage - ICD9: 733.90, ICD10: M89.9, M94.9 - DXA-AXIAL SKELETON Baudilio Sultana RTO with her new physician and prn. documented in this encounter [facility] 09-25-2021 Miscellaneous Notes Patient notified and voiced understanding. Roxann Gomez MA Same recheck one week Patient called in with home INR. Last INR: INR (POCT) 2.2 (ext) 09/25/2021 Current dose of coumadin is: 7.5 mg on Weds and Fri, 5 mg all other days. Previous INR (date and result): 1.9 on 09/11/21 Additional Clinical Information or narrative: no documented in this encounter [facility] 09-18-2021 Miscellaneous Notes Patient notified and voiced her understanding. Message left for pt to call back for instructions. Tracker and med list updated. Maranda Walton Ma' Change to 7.5 Thu and Thursday, 5 mg a day rest of the week. Recheck one week Last INR: INR (POCT) 1.9 (EXT) 09/18/2021 at 815 am Current dose of coumadin is: 7.5 mg Thursday and 5 mg all other days. Last date of dose change: 09/11/2021. Previous INR (date and result): 1.9 on 09/11/2021 Additional Clinical Information or narrative: no, changes in diet, no missed doses, no antibiotics, no increased bruising or bleeding issues. documented in this encounter [facility] 2021 Miscellaneous Notes TC to pt, notified of provider response. She verbalized understanding. Alberto Carpio LPN It should be 5 mg today, then 2.5 mg tomorrow (), then resume 5 mg daily on Thursday (except ). (And Happy Birthday!) Pt called and is notified of providers instructions. Pt voices understanding. Pt would like to know what dose the provider would like for her to take today. Del Decker RN Lets have her take 2.5 mg on and 5 mg on all other days of the week. Recheck INR in one week. Najma Dobbs APRN.CLINICAL TRIALS MANAGER Last INR: INR (POCT) 1.9 (EXT) 2021 Current dose of coumadin is: Held on Thursday and 5.0 mg all other days. Last date of dose change: 07/24/21. Previous INR (date and result): 07/24/21 3.6 Additional Clinical Information or narrative: yes: Pt reports she ate a little more green vegtables, because that is what they had at daycare. Pt denies any brusing, antibiotics, or missed doses. documented in this encounter [facility] 01-29-2021 History of Present illness Narrative Radiology Service Progress Note PATIENT NAME: Randolph Hunter DATE OF SERVICE: January 29, 2021 TIME: 1:01 PM PATIENT IDENTITY VERIFICATION COMPLETED USING TWO (2) IDENTIFIERS: Name and Date of confirmed by patient verbally. FALL SCREENING: Has the patient had 2 falls in the last year or 1 fall with injury or currently using an Ambulatory Assistive Device (Walker, Cane, Wheelchair, Crutches, etc.)? No PATIENT GENDER DATA: Female. status: : No status: NO. PATIENT RELEVANT IMPLANT DATA REVIEWED: Yes RADIOLOGY DEPARTMENT: General X-ray: Exam(s) Completed: Upper Extremity X-Ray(s): Shoulder, AP / TRUE AP / AXILLARY right PERIPHERAL IV DATA: Not applicable SIGNED BY: RT Lei(R) January 29, 2021 1:01 PM documented in this encounter [facility] 01-04-2018 History of Past i llness Narrative Problem Noted Date Resolved Date Type 2 diabetes mellitus with peripheral neuropa thy 01/04/2018 07/08/2018 Diabetic ulcer 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 09/29/2016 01/04/2018 Osteoarthrosis, unspecified whether generalized or localized, lower leg 12/26/2013 12/26/2013 Cough 09/09/2013 11/08/2014 Laryngitis 09/09/2013 11/08/2014 Sinusitis, acute 09/09/2013 11/08/2014 Family history of colon cancer 08/20/2012 0 11/08/2014 History of pulmonary embolism 08/11/2011 Overview: Has hx of recurrent clots per patient. Has chronic anticoagulation. 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 09/02/2010 11/08/2014 Essential hypertension, benign 0 03/07/2020 documented as of this encounter (statuses as of 09/16/2021) [facility] History of Past illness Narrative* Problem Noted Date Resolved Date Type 2 diabetes mellitus with peripheral neuropa thy 01/04/2018 07/08/2018 Diabetic ulcer 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 09/29/2016 01/04/2018 Osteoarthrosis, unspecified whether generalized or localized, lower leg 12/26/2013 12/26/2013 Cough 09/09/2013 11/08/2014 Laryngitis 09/09/2013 11/08/2014 Sinusitis, acute 09/09/2013 11/08/2014 Family history of colon cancer 08/20/2012 0 11/08/2014 History of pulmonary embolism 08/11/2011 Overview: Has hx of recurrent clots per patient. Has chronic anticoagulation. 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 09/02/2010 11/08/2014 Essential hypertension, benign 0 03/07/2020 documented as of this encounter (statuses as of 09/18/2021) [facility] History of Past illness Narrative* Problem Noted Date Resolved Date Type 2 diabetes mellitus with peripheral neuropa thy 01/04/2018 07/08/2018 Diabetic ulcer 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 09/29/2016 01/04/2018 Osteoarthrosis, unspecified whether generalized or localized, lower leg 12/26/2013 12/26/2013 Cough 09/09/2013 11/08/2014 Laryngitis 09/09/2013 11/08/2014 Sinusitis, acute 09/09/2013 11/08/2014 Family history of colon cancer 08/20/2012 0 11/08/2014 History of pulmonary embolism 08/11/2011 Overview: Has hx of recurrent clots per patient. Has chronic anticoagulation. DM w/o complication type II 05/12/2011 05/ Thigh pain 03/07/2011 07/08/2018 Osteomyelitis 01/10/2011 09/29/2016 Other pain disorders related to psychological fa ctors 09/02/2010 11/08/2014 Essential hypertension, benign 0 03/07/2020 documented as of this encounter (statuses as of 2021) [facility] of Past illness Narrative* Problem Noted Date Resolved Date Type 2 diabetes mellitus with peripheral neuropa thy 01/04/2018 07/08/2018 Diabetic ulcer 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 09/29/2016 01/04/2018 Osteoarthrosis, unspecified whether generalized or localized, lower leg 12/26/2013 12/26/2013 Cough 09/09/2013 11/08/2014 Laryngitis 09/09/2013 11/08/2014 Sinusitis, acute 09/09/2013 11/08/2014 Family history of colon cancer 08/20/2012 0 11/08/2014 History of pulmonary embolism 08/11/2011 Overview: Has hx of recurrent clots per patient. Has chronic anticoagulation. 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 09/02/2010 11/08/2014 Essential hypertension, benign 0 03/07/2020 documented as of this encounter (statuses as of 09/25/2021) [facility] of Past illness Narrative* Problem Noted Date Resolved Date Type 2 diabetes mellitus with peripheral neuropa thy 01/04/2018 07/08/2018 Weakness of lower extremity 11/25/2016 04/12/2021 Overview: Wheel chair bound since nerve injury, neuropathy, coupled with CP Falls frequently 11/25/2016 09/26/2021 Diabetic ulcer 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 09/29/2016 01/04/2018 Osteoarthrosis, unspecified whether generalized or localized, lower leg 12/26/2013 12/26/2013 Cough 09/09/2013 11/08/2014 Laryngitis 09/09/2013 11/08/2014 Sinusitis, acute 09/09/2013 11/08/2014 Family history of colon cancer 08/20/2012 0 11/08/2014 History of pulmonary embolism 08/11/2011 Overview: Has hx of recurrent clots per patient. Has chronic anticoagulation. 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 09/02/2010 11/08/2014 Anti-nuclear factor positive 02/28/201012/2021 Headache(784.0) 03/29/2007 09/26/2021 Pure hypercholesterolemia 2021 Overview: Cannot tolerate statins Essential hypertension, benign 0 03/07/2020 Other chest pain 09/26/2021 documented as of this encounter (statuses as of 09/26/2021) [facility]07-16-2018 History of Past illness Narrative* Problem Noted Date Resolved Date Type 2 diabetes mellitus with peripheral neuropa thy 01/04/2018 07/08/2018 Weakness of lower extremity 11/25/2016 04/0 12/2021 Overview: Wheel chair bound since nerve injury, neuropathy, coupled with CP Falls frequently 11/25/2016 09/26/2021 Diabetic ulcer 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 09/29/2016 01/04/2018 Osteoarthrosis, unspecified whether generalized or localized, lower leg 12/26/2013 12/26/2013 Cough 09/09/2013 11/08/2014 Laryngitis 09/09/2013 11/08/2014 Sinusitis, acute 09/09/2013 11/08/2014 Family history of colon cancer 08/20/2012 0 11/08/2014 History of pulmonary embolism 08/11/2011 Overview: Has hx of recurrent clots per patient. Has chronic anticoagulation. 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 09/02/2010 11/08/2014 Anti-nuclear factor positive 02/28/201012/2021 Headache(784.0) 03/29/2007 09/26/2021 Pure hypercholesterolemia 2021 Overview: Cannot tolerate statins Essential hypertension, benign 0 03/07/2020 Other chest pain 09/26/2021 documented as of this encounter (statuses as of 09/27/2021) [facility]2018 History of Past illness Narrative* Problem Noted Date Resolved Date Type 2 diabetes mellitus with peripheral neuropa thy 01/04/2018 07/08/2018 Weakness of lower extremity 11/25/2016 04/0 12/2021 Overview: Wheel chair bound since nerve injury, neuropathy, coupled with CP Falls frequently 11/25/2016 09/26/2021 Diabetic ulcer 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 09/29/2016 01/04/2018 Osteoarthrosis, unspecified whether generalized or localized, lower leg 12/26/2013 12/26/2013 Cough 09/09/2013 11/08/2014 Laryngitis 09/09/2013 11/08/2014 Sinusitis, acute 09/09/2013 11/08/2014 Family history of colon cancer 08/20/2012 0 11/08/2014 History of pulmonary embolism 08/11/2011 Overview: Has hx of recurrent clots per patient. Has chronic anticoagulation. 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 09/02/2010 11/08/2014 Anti-nuclear factor positive 02/28/201012/2021 Headache(784.0) 03/29/2007 09/26/2021 Pure hypercholesterolemia 2021 Overview: Cannot tolerate statins Essential hypertension, benign 0 03/07/2020 Other chest pain 09/26/2021 documented as of this encounter (statuses as of 10/01/2021) [facility]2018 History of Past illness Narrative* Problem Noted Date Resolved Date Type 2 diabetes mellitus with peripheral neuropa thy 01/04/2018 07/08/2018 Weakness of lower extremity 11/25/201612/2021 Overview: Wheel chair bound since nerve injury, neuropathy, coupled with CP Falls frequently 11/25/2016 09/26/2021 Diabetic ulcer 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 09/29/2016 01/04/2018 Osteoarthrosis, unspecified whether generalized or localized, lower leg 12/26/2013 12/26/2013 Cough 09/09/2013 11/08/2014 Laryngitis 09/09/2013 11/08/2014 Sinusitis, acute 09/09/2013 11/08/2014 Family history of colon cancer 08/20/2012 0 11/08/2014 History of pulmonary embolism 08/11/2011 Overview: Has hx of recurrent clots per patient. Has chronic anticoagulation. 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 09/02/2010 11/08/2014 Anti-nuclear factor positive 02/28/201012/2021 Headache(784.0) 03/29/2007 09/26/2021 Pure hypercholesterolemia 2021 Overview: Cannot tolerate statins Essential hypertension, benign 0 03/07/2020 Other chest pain 09/26/2021 documented as of this encounter (statuses as of 10/01/2021) [facility] History of Past illness Narrative* Problem Noted Date Resolved Date Type 2 diabetes mellitus with peripheral neuropa thy 01/04/2018 07/08/2018 Weakness of lower extremity 11/25/2016 04/0 12/2021 Overview: Wheel chair bound since nerve injury, neuropathy, coupled with CP Falls frequently 11/25/2016 09/26/2021 Diabetic ulcer 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 09/29/2016 01/04/2018 Osteoarthrosis, unspecified whether generalized or localized, lower leg 12/26/2013 12/26/2013 Cough 09/09/2013 11/08/2014 Laryngitis 09/09/2013 11/08/2014 Sinusitis, acute 09/09/2013 11/08/2014 Family history of colon cancer 08/20/2012 0 11/08/2014 History of pulmonary embolism 08/11/2011 Overview: Has hx of recurrent clots per patient. Has chronic anticoagulation. 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 09/02/2010 11/08/2014 Anti-nuclear factor positive 02/28/201012/2021 Headache(784.0) 03/29/2007 09/26/2021 Pure hypercholesterolemia 2021 Overview: Cannot tolerate statins Essential hypertension, benign 0 03/07/2020 Other chest pain 09/26/2021 documented as of this encounter (statuses as of 10/09/2021) [facility] History of Past illness Narrative* Problem Noted Date Resolved Date Type 2 diabetes mellitus with peripheral neuropa thy 01/04/2018 07/08/2018 Weakness of lower extremity 11/25/2016 04/0 12/2021 Overview: Wheel chair bound since nerve injury, neuropathy, coupled with CP Falls frequently 11/25/2016 09/26/2021 Diabetic ulcer 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 09/29/2016 01/04/2018 Osteoarthrosis, unspecified whether generalized or localized, lower leg 12/26/2013 12/26/2013 Cough 09/09/2013 11/08/2014 Laryngitis 09/09/2013 11/08/2014 Sinusitis, acute 09/09/2013 11/08/2014 Family history of colon cancer 08/20/2012 0 11/08/2014 History of pulmonary embolism 08/11/2011 Overview: Has hx of recurrent clots per patient. Has chronic anticoagulation. 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 09/02/2010 11/08/2014 Anti-nuclear factor positive 02/28/201012/2021 Headache(784.0) 03/29/2007 09/26/2021 Pure hypercholesterolemia 2021 Overview: Cannot tolerate statins Essential hypertension, benign 0 03/07/2020 Other chest pain 09/26/2021 documented as of this encounter (statuses as of 10/15/2021) [facility] History of Past illness Narrative* Problem Noted Date Resolved Date Type 2 diabetes mellitus with peripheral neuropa thy 01/04/2018 07/08/2018 Weakness of lower extremity 11/25/2016 04/0 12/2021 Overview: Wheel chair bound since nerve injury, neuropathy, coupled with CP Falls frequently 11/25/2016 09/26/2021 Diabetic ulcer 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 09/29/2016 01/04/2018 Osteoarthrosis, unspecified whether generalized or localized, lower leg 12/26/2013 12/26/2013 Cough 09/09/2013 11/08/2014 Laryngitis 09/09/2013 11/08/2014 Sinusitis, acute 09/09/2013 11/08/2014 Family history of colon cancer 08/20/2012 0 11/08/2014 History of pulmonary embolism 08/11/2011 Overview: Has hx of recurrent clots per patient. Has chronic anticoagulation. 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 09/02/2010 11/08/2014 Anti-nuclear factor positive 02/28/201012/2021 Headache(784.0) 03/29/2007 09/26/2021 Pure hypercholesterolemia 2021 Overview: Cannot tolerate statins Essential hypertension, benign 0 03/07/2020 Other chest pain 09/26/2021 documented as of this encounter (statuses as of 10/15/2021) [facility] History of Past illness Narrative* Problem Noted Date Resolved Date Type 2 diabetes mellitus with peripheral neuropa thy 01/04/2018 07/08/2018 Weakness of lower extremity 11/25/2016 04/0 12/2021 Overview: Wheel chair bound since nerve injury, neuropathy, coupled with CP Falls frequently 11/25/2016 09/26/2021 Diabetic ulcer 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 09/29/2016 01/04/2018 Osteoarthrosis, unspecified whether generalized or localized, lower leg 12/26/2013 12/26/2013 Cough 09/09/2013 11/08/2014 Laryngitis 09/09/2013 11/08/2014 Sinusitis, acute 09/09/2013 11/08/2014 Family history of colon cancer 08/20/2012 0 11/08/2014 History of pulmonary embolism 08/11/2011 Overview: Has hx of recurrent clots per patient. Has chronic anticoagulation. 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 09/02/2010 11/08/2014 Anti-nuclear factor positive 02/28/201012/2021 Headache(784.0) 03/29/2007 09/26/2021 Pure hypercholesterolemia 2021 Overview: Cannot tolerate statins Essential hypertension, benign 0 03/07/2020 Other chest pain 09/26/2021 documented as of this encounter (statuses as of 10/15/2021) [facility] History of Past illness Narrative* Problem Noted Date Resolved Date Type 2 diabetes mellitus with peripheral neuropa thy 01/04/2018 07/08/2018 Weakness of lower extremity 11/25/2016 04/0 12/2021 Overview: Wheel chair bound since nerve injury, neuropathy, coupled with CP Falls frequently 11/25/2016 09/26/2021 Diabetic ulcer 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 09/29/2016 01/04/2018 Osteoarthrosis, unspecified whether generalized or localized, lower leg 12/26/2013 12/26/2013 Cough 09/09/2013 11/08/2014 Laryngitis 09/09/2013 11/08/2014 Sinusitis, acute 09/09/2013 11/08/2014 Family history of colon cancer 08/20/2012 0 11/08/2014 History of pulmonary embolism 08/11/2011 Overview: Has hx of recurrent clots per patient. Has chronic anticoagulation. 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 09/02/2010 11/08/2014 Anti-nuclear factor positive 02/28/201012/2021 Headache(784.0) 03/29/2007 09/26/2021 Pure hypercholesterolemia 2021 Overview: Cannot tolerate statins Essential hypertension, benign 0 03/07/2020 Other chest pain 09/26/2021 documented as of this encounter (statuses as of 10/30/2021) [facility] History of Past illness Narrative* Problem Noted Date Resolved Date Type 2 diabetes mellitus with peripheral neuropa thy 01/04/2018 07/08/2018 Weakness of lower extremity 11/25/2016 04/0 12/2021 Overview: Wheel chair bound since nerve injury, neuropathy, coupled with CP Falls frequently 11/25/2016 09/26/2021 Diabetic ulcer 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 09/29/2016 01/04/2018 Osteoarthrosis, unspecified whether generalized or localized, lower leg 12/26/2013 12/26/2013 Cough 09/09/2013 11/08/2014 Laryngitis 09/09/2013 11/08/2014 Sinusitis, acute 09/09/2013 11/08/2014 Family history of colon cancer 08/20/2012 0 11/08/2014 History of pulmonary embolism 08/11/2011 Overview: Has hx of recurrent clots per patient. Has chronic anticoagulation. 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 09/02/2010 11/08/2014 Anti-nuclear factor positive 02/28/201012/2021 Headache(784.0) 03/29/2007 09/26/2021 Pure hypercholesterolemia 2021 Overview: Cannot tolerate statins Essential hypertension, benign 0 03/07/2020 Other chest pain 09/26/2021 documented as of this encounter (statuses as of 11/11/2021) [facility] History of Past illness Narrative* Problem Noted Date Resolved Date Type 2 diabetes mellitus with peripheral neuropa thy 01/04/2018 07/08/2018 Weakness of lower extremity 11/25/2016 04/0 12/2021 Overview: Wheel chair bound since nerve injury, neuropathy, coupled with CP Falls frequently 11/25/2016 09/26/2021 Diabetic ulcer 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 09/29/2016 01/04/2018 Osteoarthrosis, unspecified whether generalized or localized, lower leg 12/26/2013 12/26/2013 Cough 09/09/2013 11/08/2014 Laryngitis 09/09/2013 11/08/2014 Sinusitis, acute 09/09/2013 11/08/2014 Family history of colon cancer 08/20/2012 0 11/08/2014 History of pulmonary embolism 08/11/2011 Overview: Has hx of recurrent clots per patient. Has chronic anticoagulation. 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 09/02/2010 11/08/2014 Anti-nuclear factor positive 02/28/201012/2021 Headache(784.0) 03/29/2007 09/26/2021 Pure hypercholesterolemia 2021 Overview: Cannot tolerate statins Essential hypertension, benign 0 03/07/2020 Other chest pain 09/26/2021 documented as of this encounter (statuses as of 11/19/2021) [facility] History of Past illness Narrative* Problem Noted Date Resolved Date Type 2 diabetes mellitus with peripheral neuropa thy 01/04/2018 07/08/2018 Weakness of lower extremity 11/25/2016 04/0 12/2021 Overview: Wheel chair bound since nerve injury, neuropathy, coupled with CP Falls frequently 11/25/2016 09/26/2021 Diabetic ulcer 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 09/29/2016 01/04/2018 Osteoarthrosis, unspecified whether generalized or localized, lower leg 12/26/2013 12/26/2013 Cough 09/09/2013 11/08/2014 Laryngitis 09/09/2013 11/08/2014 Sinusitis, acute 09/09/2013 11/08/2014 Family history of colon cancer 08/20/2012 0 11/08/2014 History of pulmonary embolism 08/11/2011 Overview: Has hx of recurrent clots per patient. Has chronic anticoagulation. 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 09/02/2010 11/08/2014 Anti-nuclear factor positive 02/28/201012/2021 Headache(784.0) 03/29/2007 09/26/2021 Pure hypercholesterolemia 2021 Overview: Cannot tolerate statins Essential hypertension, benign 0 03/07/2020 Other chest pain 09/26/2021 documented as of this encounter (statuses as of 11/30/2021) [facility] History of Past illness Narrative* Problem Noted Date Resolved Date Type 2 diabetes mellitus with peripheral neuropa thy 01/04/2018 07/08/2018 Weakness of lower extremity 11/25/2016 0412/2021 Overview: Wheel chair bound since nerve injury, neuropathy, coupled with CP Falls frequently 11/25/2016 09/26/2021 Diabetic ulcer 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 09/29/2016 01/04/2018 Osteoarthrosis, unspecified whether generalized or localized, lower leg 12/26/2013 12/26/2013 Cough 09/09/2013 11/08/2014 Laryngitis 09/09/2013 11/08/2014 Sinusitis, acute 09/09/2013 11/08/2014 Family history of colon cancer 08/20/2012 0 11/08/2014 History of pulmonary embolism 08/11/2011 Overview: Has hx of recurrent clots per patient. Has chronic anticoagulation. 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 09/02/2010 11/08/2014 Anti-nuclear factor positive 02/28/201012/2021 Headache(784.0) 03/29/2007 09/26/2021 Pure hypercholesterolemia 2021 Overview: Cannot tolerate statins Essential hypertension, benign 0 03/07/2020 Other chest pain 09/26/2021 documented as of this encounter (statuses as of 12/23/2021) [facility] History of Past illness Narrative* Problem Noted Date Resolved Date Type 2 diabetes mellitus with peripheral neuropa thy 01/04/2018 07/08/2018 Weakness of lower extremity 11/25/2016 0412/2021 Overview: Wheel chair bound since nerve injury, neuropathy, coupled with CP Falls frequently 11/25/2016 09/26/2021 Diabetic ulcer 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 09/29/2016 01/04/2018 Osteoarthrosis, unspecified whether generalized or localized, lower leg 12/26/2013 12/26/2013 Cough 09/09/2013 11/08/2014 Laryngitis 09/09/2013 11/08/2014 Sinusitis, acute 09/09/2013 11/08/2014 Family history of colon cancer 08/20/2012 0 11/08/2014 History of pulmonary embolism 08/11/2011 Overview: Has hx of recurrent clots per patient. Has chronic anticoagulation. 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 09/02/2010 11/08/2014 Anti-nuclear factor positive 02/28/201012/2021 Headache(784.0) 03/29/2007 09/26/2021 Pure hypercholesterolemia 2021 Overview: Cannot tolerate statins Essential hypertension, benign 0 03/07/2020 Other chest pain 09/26/2021 documented as of this encounter (statuses as of 02/10/2022) [facility] History of Past illness Narrative* Problem Noted Date Resolved Date Type 2 diabetes mellitus with peripheral neuropa thy 01/04/2018 07/08/2018 Weakness of lower extremity 11/25/2016 04/0 12/2021 Overview: Wheel chair bound since nerve injury, neuropathy, coupled with CP Falls frequently 11/25/2016 09/26/2021 Diabetic ulcer 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 09/29/2016 01/04/2018 Osteoarthrosis, unspecified whether generalized or localized, lower leg 12/26/2013 12/26/2013 Cough 09/09/2013 11/08/2014 Laryngitis 09/09/2013 11/08/2014 Sinusitis, acute 09/09/2013 11/08/2014 Family history of colon cancer 08/20/2012 0 11/08/2014 History of pulmonary embolism 08/11/2011 Overview: Has hx of recurrent clots per patient. Has chronic anticoagulation. 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 09/02/2010 11/08/2014 Anti-nuclear factor positive 02/28/201012/2021 Headache(784.0) 03/29/2007 09/26/2021 Pure hypercholesterolemia 2021 Overview: Cannot tolerate statins Essential hypertension, benign 0 03/07/2020 Other chest pain 09/26/2021 documented as of this encounter (statuses as of 02/11/2022) [facility] History of Past illness Narrative* Problem Noted Date Resolved Date Type 2 diabetes mellitus with peripheral neuropa thy 01/04/2018 07/08/2018 Weakness of lower extremity 11/25/2016 04/0 12/2021 Overview: Wheel chair bound since nerve injury, neuropathy, coupled with CP Falls frequently 11/25/2016 09/26/2021 Diabetic ulcer 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 09/29/2016 01/04/2018 Osteoarthrosis, unspecified whether generalized or localized, lower leg 12/26/2013 12/26/2013 Cough 09/09/2013 11/08/2014 Laryngitis 09/09/2013 11/08/2014 Sinusitis, acute 09/09/2013 11/08/2014 Family history of colon cancer 08/20/2012 0 11/08/2014 History of pulmonary embolism 08/11/2011 Overview: Has hx of recurrent clots per patient. Has chronic anticoagulation. 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 09/02/2010 11/08/2014 Anti-nuclear factor positive 02/28/201012/2021 Headache(784.0) 03/29/2007 09/26/2021 Pure hypercholesterolemia 2021 Overview: Cannot tolerate statins Essential hypertension, benign 0 03/07/2020 Other chest pain 09/26/2021 documented as of this encounter (statuses as of 02/12/2022) [facility] History of Past illness Narrative* Problem Noted Date Resolved Date Type 2 diabetes mellitus with peripheral neuropa thy 01/04/2018 07/08/2018 Weakness of lower extremity 11/25/2016 04/12/2021 Overview: Wheel chair bound since nerve injury, neuropathy, coupled with CP Falls frequently 11/25/2016 09/26/2021 Diabetic ulcer 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 09/29/2016 01/04/2018 Osteoarthrosis, unspecified whether generalized or localized, lower leg 12/26/2013 12/26/2013 Cough 09/09/2013 11/08/2014 Laryngitis 09/09/2013 11/08/2014 Sinusitis, acute 09/09/2013 11/08/2014 Family history of colon cancer 08/20/2012 0 11/08/2014 History of pulmonary embolism 08/11/2011 Overview: Has hx of recurrent clots per patient. Has chronic anticoagulation. 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 09/02/2010 11/08/2014 Anti-nuclear factor positive 02/28/201012/2021 Headache(784.0) 03/29/2007 09/26/2021 Pure hypercholesterolemia 2021 Overview: Cannot tolerate statins Essential hypertension, benign 0 03/07/2020 Other chest pain 09/26/2021 documented as of this encounter (statuses as of 02/27/2022) [facility] History of Past illness Narrative* Problem Noted Date Resolved Date Type 2 diabetes mellitus with peripheral neuropa thy 01/04/2018 07/08/2018 Weakness of lower extremity 11/25/2016 04/0 12/2021 Overview: Wheel chair bound since nerve injury, neuropathy, coupled with CP Falls frequently 11/25/2016 09/26/2021 Diabetic ulcer 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 09/29/2016 01/04/2018 Osteoarthrosis, unspecified whether generalized or localized, lower leg 12/26/2013 12/26/2013 Cough 09/09/2013 11/08/2014 Laryngitis 09/09/2013 11/08/2014 Sinusitis, acute 09/09/2013 11/08/2014 Family history of colon cancer 08/20/2012 0 11/08/2014 History of pulmonary embolism 08/11/2011 Overview: Has hx of recurrent clots per patient. Has chronic anticoagulation. 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 09/02/2010 11/08/2014 Anti-nuclear factor positive 02/28/201012/2021 Headache(784.0) 03/29/2007 09/26/2021 Pure hypercholesterolemia 2021 Overview: Cannot tolerate statins Essential hypertension, benign 0 03/07/2020 Other chest pain 09/26/2021 documented as of this encounter (statuses as of 03/03/2022) [facility] History of Past illness Narrative* Problem Noted Date Resolved Date Type 2 diabetes mellitus with peripheral neuropa thy 01/04/2018 07/08/2018 Weakness of lower extremity 11/25/2016 04/0 12/2021 Overview: Wheel chair bound since nerve injury, neuropathy, coupled with CP Falls frequently 11/25/2016 09/26/2021 Diabetic ulcer 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 09/29/2016 01/04/2018 Osteoarthrosis, unspecified whether generalized or localized, lower leg 12/26/2013 12/26/2013 Cough 09/09/2013 11/08/2014 Laryngitis 09/09/2013 11/08/2014 Sinusitis, acute 09/09/2013 11/08/2014 Family history of colon cancer 08/20/2012 0 11/08/2014 History of pulmonary embolism 08/11/2011 Overview: Has hx of recurrent clots per patient. Has chronic anticoagulation. 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 09/02/2010 11/08/2014 Anti-nuclear factor positive 02/28/201012/2021 Headache(784.0) 03/29/2007 09/26/2021 Pure hypercholesterolemia 2021 Overview: Cannot tolerate statins Essential hypertension, benign 0 03/07/2020 Other chest pain 09/26/2021 documented as of this encounter (statuses as of 03/06/2022) [facility] History of Past illness Narrative* Problem Noted Date Resolved Date Type 2 diabetes mellitus with peripheral neuropa thy 01/04/2018 07/08/2018 Weakness of lower extremity 11/25/2016 04/0 12/2021 Overview: Wheel chair bound since nerve injury, neuropathy, coupled with CP Falls frequently 11/25/2016 09/26/2021 Diabetic ulcer 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 09/29/2016 01/04/2018 Osteoarthrosis, unspecified whether generalized or localized, lower leg 12/26/2013 12/26/2013 Cough 09/09/2013 11/08/2014 Laryngitis 09/09/2013 11/08/2014 Sinusitis, acute 09/09/2013 11/08/2014 Family history of colon cancer 08/20/2012 0 11/08/2014 History of pulmonary embolism 08/11/2011 Overview: Has hx of recurrent clots per patient. Has chronic anticoagulation. 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 09/02/2010 11/08/2014 Anti-nuclear factor positive 02/28/201012/2021 Headache(784.0) 03/29/2007 09/26/2021 Pure hypercholesterolemia 2021 Overview: Cannot tolerate statins Essential hypertension, benign 0 03/07/2020 Other chest pain 09/26/2021 documented as of this encounter (statuses as of 04/25/2022) [facility] History of Past illness Narrative* Problem Noted Date Resolved Date Type 2 diabetes mellitus with peripheral neuropa thy 01/04/2018 07/08/2018 Weakness of lower extremity 11/25/2016 04/0 12/2021 Overview: Wheel chair bound since nerve injury, neuropathy, coupled with CP Falls frequently 11/25/2016 09/26/2021 Diabetic ulcer 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 09/29/2016 01/04/2018 Osteoarthrosis, unspecified whether generalized or localized, lower leg 12/26/2013 12/26/2013 Cough 09/09/2013 11/08/2014 Laryngitis 09/09/2013 11/08/2014 Sinusitis, acute 09/09/2013 11/08/2014 Family history of colon cancer 08/20/2012 0 11/08/2014 History of pulmonary embolism 08/11/2011 Overview: Has hx of recurrent clots per patient. Has chronic anticoagulation. DM w/o complication type II 05/12/2011 05/ Thigh pain 03/07/2011 07/08/2018 Osteomyelitis 01/10/2011 09/29/2016 Other pain disorders related to psychological fa ctors 09/02/2010 11/08/2014 Anti-nuclear factor positive 02/28/201012/2021 Headache(784.0) 03/29/2007 09/26/2021 Pure hypercholesterolemia 2021 Overview: Cannot tolerate statins Essential hypertension, benign 0 03/07/2020 Other chest pain 09/26/2021 documented as of this encounter (statuses as of 06/25/2022) [facility] History of Past illness Narrative* Problem Noted Date Diagnosed Date Resolved Date Type 2 diabetes mellitus wit h peripheral neuropathy 01/04/2018 07/08/2018 Weakness of lower extremity 11/25/2016 09/26/2021 Overview: Wheel chair bound since nerve injury, neuropathy, coupled with CP Falls frequently 11/25/2016 09/26/2021 Diabetic ulcer 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 09/29/2016 01/04/2018 Osteoarthrosis, unspecified whether generalized or localized, lower leg 12/26/2013 07/0 12/2013 Cough 09/09/2013 11/08/2014 Laryngitis 09/09/2013 11/08/2014 Sinusitis, acute 09/09/2013 11/08/2014 Family history of colon cancer 08/20/2012 11/08/2014 History of pulmonary embolism 08/11/2011 03/07/2020 Overview: Has hx of recurrent clots per patient. Has chronic anticoagulation. DM w/o complication type II 05/12/2011 11/08/2014 Thigh pain 03/07/2011 07/08/2018 Osteomyelitis 01/10/2011 09/29/2016 Other pain disorders related to psychological factors 09/02/2010 11/08/2014 Anti-nuclear factor positive 02/28/2010 09/26/2021 Headache(784.0) 03/29/2007 09/26/2021 Pure hypercholesterolemia Overview: Cannot tolerate statins Essential hypertension, benign 03/07/2020 Other chest pain 09/26/2021 documented as of this encounter (statuses as of 05/04/2023) [facility] History of Past illness Narrative* Problem Noted Date Diagnosed Date Resolved Date Type 2 diabetes mellitus wit h peripheral neuropathy 01/04/2018 07/08/2018 Weakness of lower extremity 11/25/2016 09/26/2021 Overview: Wheel chair bound since nerve injury, neuropathy, coupled with CP Falls frequently 11/25/2016 09/26/2021 Diabetic ulcer 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 09/29/2016 01/04/2018 Osteoarthrosis, unspecified whether generalized or localized, lower leg 12/26/2013 07/12/2013 Cough 09/09/2013 11/08/2014 Laryngitis 09/09/2013 11/08/2014 Sinusitis, acute 09/09/2013 11/08/2014 Family history of colon cancer 08/20/2012 11/08/2014 History of pulmonary embolism 08/11/2011 03/07/2020 Overview: Has hx of recurrent clots per patient. Has chronic anticoagulation. DM w/o complication type II 05/12/2011 11/08/2014 Thigh pain 03/07/2011 07/08/2018 Osteomyelitis 01/10/2011 09/29/2016 Other pain disorders related to psychological factors 09/02/2010 11/08/2014 Anti-nuclear factor positive 02/28/2010 09/26/2021 Headache(784.0) 03/29/2007 09/26/2021 Pure hypercholesterolemia Overview: Cannot tolerate statins Essential hypertension, benign 03/07/2020 Other chest pain 09/26/2021 documented as of this encounter (statuses as of 05/04/2023) [facility] [place] [facility]* Diagnosis History of pulmonary embolism Personal history of pulmonary embolism documented in this encounter [facility] note* Diagnosis History of pulmonary embolism Personal history of pulmonary embolism documented in this encounter [facility] note* Diagnosis Cerebral palsy, unspecified type (HCC)- Primary Carotid artery disease, unspecified laterality, unspecified type (HCC) Type 2 diabetes, controlled, with neuropathy (HCC) Type II or unspecified type diabetes mellitus with neurological manifestations, not stated as uncontrolled Diabetic polyneuropathy associated with type 2 diabetes mellitus (HCC) Other pulmonary embolism without acute cor pulmonale, unspecified chronicity (HCC) Vitamin B12 deficiency Other B-complex deficiencies Acquired hypothyroidism Unspecified hypothyroidism Depression, recurrent (HCC) Major depressive disorder, recurrent episode, unspecified Disorder of bone and cartilage Disorder of bone and cartilage, unspecified Brachial neuritis or radiculitis Brachial neuritis or radiculitis nos documented in this encounter [facility] noteNo assessment information availableWOur [facility] Work Phone: Evaluation note* Diagnosis Acquired hypothyroidism Unspecified hypothyroidism documented in this encounter [facility] note* Diagnosis Disorder of bone and cartilage Disorder of bone and cartilage, unspecified documented in this encounter [facility] note* Diagnosis Encounter for screening mammogram for breast cancer documented in this encounter [facility] note* Diagnosis Type 2 diabetes, controlled, with neuropathy (HCC)- Primary Type II or unspecified type diabetes mellitus with neurological manifestations, not stated as uncontrolled Diabetic ulcer of toe 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, with fat layer exposed (HCC) documented in this encounter [facility] note* Diagnosis Diabetic ulcer of toe 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, with fat layer exposed (HCC) documented in this encounter [facility] note* Diagnosis Diabetic ulcer of toe 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, with fat layer exposed (HCC)- Primary documented in this encounter [facility] note* Diagnosis Diabetic ulcer of toe 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, with fat layer exposed (HCC)- Primary Type 2 diabetes, controlled, with neuropathy (HCC) Type II or unspecified type diabetes mellitus with neurological manifestations, not stated as uncontrolled documented in this encounter [facility] note* Diagnosis Diabetic ulcer of other part 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, with fat layer exposed (HCC)- Primary Cellulitis of left lower extremity Cellulitis and abscess of leg, except foot PE (pulmonary thromboembolism) (HCC) Chronic pulmonary embolism Cellulitis Cellulitis and abscess of unspecified site documented in this encounter [facility] Work Phone: Evaluation note* Diagnosis Diabetic ulcer of toe 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, with fat layer exposed ([facility])- Primary documented in this encounter [facility] note* Diagnosis Fall, initial encounter- Primary Skin tear of hand without complication Cephalohematoma Other injuries to scalp Acute pain of right shoulder [facility] [place] [facility]* Diagnosis Exacerbation of asthma, unspecified asthma severity, unspecified whether persistent Hyperparathyroidism, primary ([facility]) Primary hyperparathyroidism Neuropathy Mononeuritis of unspecified site Osteoarthritis of AC (acromioclavicular) joints, bilateral Vitamin D deficiency Unspecified vitamin D deficiency Blister Other, multiple, and unspecified sites, blister, without mention of infection Candidiasis of breast Other candidiasis of other specified sites Lupus anticoagulant disorder ([facility]) Primary hypercoagulable state Cerumen in auditory canal on examination Chronic kidney disease, unspecified CKD stage Fall, sequela Knee pain, unspecified chronicity, unspecified laterality Chronic thromboembolic pulmonary hypertension (HCC) Other chronic pulmonary heart diseases Strain of calf muscle, unspecified laterality, subsequent encounter Traumatic ecchymosis of lower back, sequela Yeast infection of the skin Candidiasis of skin and nails documented in this encounter [facility] note* Diagnosis Frequent falls- Primary Right hip pain Pain in joint, pelvic region and thigh Contusion of right knee, initial encounter Osteoarthritis, unspecified osteoarthritis type, unspecified site documented in this encounter [facility] note* Diagnosis Diabetic ulcer of left foot associated with diabetes mellitus due to underlying condition, unspecified part of foot, unspecified ulcer stage ([facility])- Primary Left leg cellulitis documented in this encounter [facility] [place] [facility]* Diagnosis Pressure ulcer of right foot, stage 3 ([facility])- Primary [facility] [place] [facility]* Diagnosis Chronic right shoulder pain Pain in joint, shoulder region documented in this encounter [facility] note* Diagnosis Acute cough- Primary documented in this encounter [facility] [place] [facility]* Diagnosis Fall at home, initial encounter- Primary Cerebral palsy, unspecified type ([facility]) Brachial neuritis or radiculitis Brachial neuritis or radiculitis nos Acute pain of right shoulder Left knee pain, unspecified chronicity Diabetic polyneuropathy associated with type 2 diabetes mellitus (HCC) Neuropathy Mononeuritis of unspecified site Type 2 diabetes, controlled, with neuropathy (HCC) Type II or unspecified type diabetes mellitus with neurological manifestations, not stated as uncontrolled Atherosclerosis of [place] coronary artery of [place] heart without angina pectoris Other pulmonary embolism without acute cor pulmonale, unspecified chronicity (HCC) Debility Debility, unspecified documented in this encounter [facility] note* Diagnosis Fall at home, initial encounter- Primary Cerebral palsy, unspecified type (HCC) Brachial neuritis or radiculitis Brachial neuritis or radiculitis nos Acute pain of right shoulder Left knee pain, unspecified chronicity Diabetic polyneuropathy associated with type 2 diabetes mellitus (HCC) Type 2 diabetes, controlled, with neuropathy (HCC) Type II or unspecified type diabetes mellitus with neurological manifestations, not stated as uncontrolled Neuropathy Mononeuritis of unspecified site Atherosclerosis of [place] coronary artery of [place] heart without angina pectoris Other pulmonary embolism without acute cor pulmonale, unspecified chronicity (HCC) Debility Debility, unspecified documented in this encounter [facility] note* Diagnosis Fall at home, initial encounter- Primary Cerebral palsy, unspecified type (HCC) Brachial neuritis or radiculitis Brachial neuritis or radiculitis nos Acute pain of right shoulder Left knee pain, unspecified chronicity Diabetic polyneuropathy associated with type 2 diabetes mellitus (HCC) Neuropathy Mononeuritis of unspecified site Type 2 diabetes, controlled, with neuropathy (HCC) Type II or unspecified type diabetes mellitus with neurological manifestations, not stated as uncontrolled Atherosclerosis of [place] coronary artery of [place] heart without angina pectoris Other pulmonary embolism without acute cor pulmonale, unspecified chronicity (HCC) Debility Debility, unspecified documented in this encounter [facility] note* Diagnosis Primary osteoarthritis of left knee- Primary Primary localized osteoarthrosis, lower leg documented in this encounter [facility] note* Diagnosis Sprain of left ankle, unspecified ligament, initial encounter- Primary Ankle instability, left Chronic pain of left ankle documented in this encounter [facility] note* Diagnosis Sprain of left ankle, unspecified ligament, initial encounter Ankle instability, left documented in this encounter [facility] for referral (narrative)* Diagnostic Procedure Only (Routine) - Pending Review Specialty Diagnoses / Procedures Referred By Enrique t Referred To Contact BR IMAGING Diagnoses Encounter for screening mammogram for breast cancer Procedures FUAD SCREENING SCREENING MAMMOGRAPHY BI 2-VIEW BREAST INC CAD Baudilio Sultana MD [address] [place] [address] [facility] [address] [place] [address] Referral ID Status Reason Start Date Expiration Date Visits Requested Visits Authorized [id number] Pending Review Auto-Generat ed Referral 12/18/2021 01/17/2023 1 1 T [facility] for referral (narrative)* Diagnostic Procedure Only (Routine) - Closed Specialty Diagnoses / Procedures Referred By Enrique t Referred To Contact XR IMAGING Diagnoses Diabetic ulcer of toe 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, with fat layer exposed (HCC) Procedures XR FOOT GENERAL 3V AP/LAT/OBL LEFT RADEX FOOT COMPLETE MINIMUM 3 VIEWS Steven Pelaez [address] [place] [address] Xr Imaging Referral ID Status Reason Start Date Expiration Date V isits Requested Visits Authorized [id number] Closed Auto-Generate d Referral 02/10/2022 03/12/2023 1 1 T [facility] for referral (narrative)* Diagnostic Procedure Only (Routine) - Closed Specialty Diagnoses / Procedures Referred By Enrique cueva Referred To Contact XR IMAGING Diagnoses Diabetic ulcer of toe 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, with fat layer exposed (HCC) Procedures XR FOOT GENERAL 3V AP/LAT/OBL LEFT RADEX FOOT COMPLETE MINIMUM 3 VIEWS Steven Pelaez [address] [place] [address] Xr Imaging Referral ID Status Reason Start Date Expiration Date V isits Requested Visits Authorized [id number] Closed Auto-Generate d Referral 02/10/2022 03/12/2023 1 1 [facility] for visit Narrative* Diagnostic Procedure Only (Routine) - Closed Specialty Diagnoses / Procedures Referred By Enrique cueva Referred To Contact Radiology / [facility] Diagnoses Disorder of bone and cartilage [M89.9, M94.9] Procedures BONE DENSITY ADULT 225 Baudilio Sultana MD [address] [place] [address] Radio Bone Density [facility] [address] [place] [address] Referral ID Status Reason Start Date Expiration Date Visits Re quested Visits Authorized [id number] Closed 10/14/2021 06/21/2022 1 1 [facility] for visit Narrative* Diagnostic Procedure Only (Routine) - Closed Specialty Diagnoses / Procedures Referred By Enrique cueva Referred To Contact XR IMAGING Diagnoses Diabetic ulcer of toe 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, with fat layer exposed (HCC) Procedures XR FOOT GENERAL 3V AP/LAT/OBL LEFT RADEX FOOT COMPLETE MINIMUM 3 VIEWS Steven Pelaez [address] [facility] [place] [address] Xr Imaging Referral ID Status Reason Start Date Expiration Date V isits Requested Visits Authorized [id number] Closed Auto-Generate d Referral 02/10/2022 03/12/2023 1 1 [facility] for visit Narrative* Diagnostic Procedure Only (Routine) - Closed Specialty Diagnoses / Procedures Referred By Enrique Referred To Contact XR IMAGING Diagnoses Sprain of left ankle, unspecified ligament, initial encounter Ankle instability, left Procedures XR TIBIA FIBULA 2V AP/LAT LEFT RADIOLOGIC EXAMINATION TIBIA & FIBULA 2 VIEWS Steven Pelaez [address] [facility] [place] [address] Phone: tel: fax: [place] [phone] Referral ID Status Reason Start Date Expiration Date V isits Requested Visits Authorized [id number] Closed Auto-Generate d Referral 10/27/2024 11/26/2025 1 1 [facility] Summary Purpose Family History No Family History Records Found Relationship Condition Age at Onset Recorded Date/T kelechi mother Asthma Unknown Diabetes mellitus Unknown Malignant neoplasm of colon Unknown Cardiac disease Unknown Chronic obstructive pulmonary disease Unk nown Hypertension Unknown father Cardiac disease Unknown Malignant neoplasm Unknown Abdominal aortic aneurysm (AAA) Unknown brother Malignant neoplasm Unknown brother Chronic obstructive pulmonary disease Unk nown Advance Directives No Advanced Directives Records FoundDocuments on File Type Date Recorded 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 Advance Directive(s) 11/24/2016 2:36 PM Advance Directive(s) 10/24/2016 10:01 AM Advance Directive(s) 12/26/2013 2:29 PM Documents on File Type Date Recorded 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 Advance Directive(s) 11/24/2016 2:36 PM Advance Directive(s) 10/24/2016 10:01 AM Advance Directive(s) 12/26/2013 2:29 PM Advance Directive Response Recorded Date/ Time Advance Directives Yes January 04 7:42pm Living Will Yes April 22 10:07pm Power of Registrar Assistant Yes April 22, 2021 10:07pm Documents on File Type Date Recorded 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 Advance Directive(s) 12/26/2013 2:29 PM Documents on File Type Date Recorded 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 Advance Directive(s) 12/26/2013 2:29 PM Latest Code Status on File Code Status Date Activated Date Inactivated Comments Limited 03/08/2022 4:21 PM Intubation/Re-intubation at the time of arrest: No Defibrillation/Cardioversion: No Chest Compressions: No Resuscitative Medications: Yes Healthcare Agents on File Name Relationship Healthcare Agent Relationshi p Communication Lisha Holly Child Primary Decision Maker Documents on File Type Date Recorded 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 DNR (Do Not Resuscitate) 12/18/2023 10:52 AM Reason for Referral Specialty Diagnoses / Procedures Referred By Contac t Referred To Contact [facility] Diagnoses Cerebral palsy, unspecified type (HCC) Procedures CONSULT TO FEED MANAGEMENT ADVISOR OCCUPATIONAL THERAPY EVAL HIGH COMPLEX 60 MINS Baudilio Sultana MD [address] [place] [address] [facility] [place] [address] [place] [address] Referral ID Status Reason Start Date Expiration Date Visits Requested Visits Authorized [id number] Pending Review Auto-Generat ed Referral 09/26/2021 09/26/2022 1 1 Specialty Diagnoses / Procedures Referred By Contac t Referred To Contact [facility] Diagnoses Cerebral palsy, unspecified type (HCC) Procedures CONSULT TO PHYSICAL THERAPY PHYSICAL THERAPY EVALUATION HIGH COMPLEX 45 MINS Baudilio Sultana MD [address] [place] [address] [facility] [address] [address] Referral ID Status Reason Start Date Expiration Date Visits Requested Visits Authorized [id number] Pending Review Auto-Generat ed Referral 09/26/2021 09/26/2022 1 1 Specialty Diagnoses / Procedures Referred By Contac t Referred To Contact [facility] Diagnoses Carotid artery disease, unspecified laterality, unspecified type (HCC) Procedures US CAROTID ARTERIES DUSTIN VAS LAB DUPLEX SCAN EXTRACRANIAL ART COMPL BI STUDY Baudilio Sultana MD [address] [place] [address] [facility] [address] [address] Referral ID Status Reason Start Date Expiration Date Visits Requested Visits Authorized [id number] Additional Clinical Info Needed Auto-Generat ed Referral 09/26/2021 09/26/2022 1 1 Specialty Diagnoses / Procedures Referred By Contac t Referred To Contact Wound Care / IP Unit Diagnoses Diabetic ulcer of other part 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, with fat layer exposed (HCC) Ritika Fonseca, DIRECTOR GLOBAL INTELLIGENCE - CLINICAL TRIALS MANAGER [address] [place] [address] [address] [address] [place] [id number] Referral ID Status Reason Start Date Expiration Date V isits Requested Visits Authorized [id number] Open Specialty Services Required 03/11/2022 03/11/2023 1 1 Scheduling Instructions [facility] Wound Care/Hyperbaric [facility] [address] [place] [address] [facility] Wound Center/Hyperbaric Medicine is located on the ground floor of [facility] (just behind registration). Bring photo ID and insurance card to photocopy. Wear loose fitting clothing (to easily access wound). Bring list of medications (or can be sent by office). Check in at Registration for your fist visit, (registration located just beyond the main entrance on the ground floor). Please call us directly with any questions . We look forward to helping you heal. 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 DATE CREATED AUTHOR AUTHOR'S ORGANIZ ATION 01/18/2022 [facility] DATE CREATED AUTHOR AUTHOR'S ORGANIZ ATION 03/31/2022 [facility] DATE CREATED AUTHOR AUTHOR'S ORGANIZ ATION 09/08/2022 [facility] DATE CREATED AUTHOR AUTHOR'S ORGANIZ ATION 07/11/2024 [facility] DATE CREATED AUTHOR AUTHOR'S ORGANIZ ATION 10/01/2024 [facility] DATE CREATED AUTHOR AUTHOR'S ORGANIZ ATION 11/05/2024 [facility] DATE CREATED AUTHOR AUTHOR'S ORGANIZ ATION 11/09/2024 [facility] nter Source Comments (unrecognize d section and content) In the event this informatio n is protected by the Federal Confidentiality of Alcohol and Drug Abuse Patient Records regulations: The Federal rules restrict any use of the information to criminally investigate or prosecute any alcohol or drug abuse patient.[facility] the event this information is protected by the Federal Confidentiality of Alcohol and Drug Abuse Patient Records regulations: The Federal rules restrict any use of the information to criminally investigate or prosecute any alcohol or drug abuse patient.[facility] the event this information is protected by the Federal Confidentiality of Alcohol and Drug Abuse Patient Records regulations: The Federal rules restrict any use of the information to criminally investigate or prosecute any alcohol or drug abuse patient.[facility] the event this information is protected by the Federal Confidentiality of Alcohol and Drug Abuse Patient Records regulations: The Federal rules restrict any use of the information to criminally investigate or prosecute any alcohol or drug abuse patient.[facility] the event this information is protected by the Federal Confidentiality of Alcohol and Drug Abuse Patient Records regulations: The Federal rules restrict any use of the information to criminally investigate or prosecute any alcohol or drug abuse patient.[facility] the event this information is protected by the Federal Confidentiality of Alcohol and Drug Abuse Patient Records regulations: The Federal rules restrict any use of the information to criminally investigate or prosecute any alcohol or drug abuse patient.[facility] the event this information is protected by the Federal Confidentiality of Alcohol and Drug Abuse Patient Records regulations: The Federal rules restrict any use of the information to criminally investigate or prosecute any alcohol or drug abuse patient.[facility] HospitalIn the event this information is protected by the Federal Confidentiality of Alcohol and Drug Abuse Patient Records regulations: The Federal rules restrict any use of the information to criminally investigate or prosecute any alcohol or drug abuse patient.[facility] HospitalIn the event this information is protected by the Federal Confidentiality of Alcohol and Drug Abuse Patient Records regulations: The Federal rules restrict any use of the information to criminally investigate or prosecute any alcohol or drug abuse patient.[facility] HospitalIn the event this information is protected by the Federal Confidentiality of Alcohol and Drug Abuse Patient Records regulations: The Federal rules restrict any use of the information to criminally investigate or prosecute any alcohol or drug abuse patient.[facility] HospitalIn the event this information is protected by the Federal Confidentiality of Alcohol and Drug Abuse Patient Records regulations: The Federal rules restrict any use of the information to criminally investigate or prosecute any alcohol or drug abuse patient.[facility] HospitalIn the event this information is protected by the Federal Confidentiality of Alcohol and Drug Abuse Patient Records regulations: The Federal rules restrict any use of the information to criminally investigate or prosecute any alcohol or drug abuse patient.[facility] HospitalIn the event this information is protected by the Federal Confidentiality of Alcohol and Drug Abuse Patient Records regulations: The Federal rules restrict any use of the information to criminally investigate or prosecute any alcohol or drug abuse patient.[facility] HospitalIn the event this information is protected by the Federal Confidentiality of Alcohol and Drug Abuse Patient Records regulations: The Federal rules restrict any use of the information to criminally investigate or prosecute any alcohol or drug abuse patient.[facility] the event this information is protected by the Federal Confidentiality of Alcohol and Drug Abuse Patient Records regulations: The Federal rules restrict any use of the information to criminally investigate or prosecute any alcohol or drug abuse patient.[facility] HospitalIn the event this information is protected by the Federal Confidentiality of Alcohol and Drug Abuse Patient Records regulations: The Federal rules restrict any use of the information to criminally investigate or prosecute any alcohol or drug abuse patient.[facility] HospitalIn the event this information is protected by the Federal Confidentiality of Alcohol and Drug Abuse Patient Records regulations: The Federal rules restrict any use of the information to criminally investigate or prosecute any alcohol or drug abuse patient.[facility]In the event this information is protected by the Federal Confidentiality of Alcohol and Drug Abuse Patient Records regulations: The Federal rules restrict any use of the information to criminally investigate or prosecute any alcohol or drug abuse patient.[facility] HospitalIn the event this information is protected by the Federal Confidentiality of Alcohol and Drug Abuse Patient Records regulations: The Federal rules restrict any use of the information to criminally investigate or prosecute any alcohol or drug abuse patient.[facility] HospitalIn the event this information is protected by the Federal Confidentiality of Alcohol and Drug Abuse Patient Records regulations: The Federal rules restrict any use of the information to criminally investigate or prosecute any alcohol or drug abuse patient.[facility] HospitalIn the event this information is protected by the Federal Confidentiality of Alcohol and Drug Abuse Patient Records regulations: The Federal rules restrict any use of the information to criminally investigate or prosecute any alcohol or drug abuse patient.[facility] HospitalIn the event this information is protected by the Federal Confidentiality of Alcohol and Drug Abuse Patient Records regulations: The Federal rules restrict any use of the information to criminally investigate or prosecute any alcohol or drug abuse patient.[facility] HospitalIn the event this information is protected by the Federal Confidentiality of Alcohol and Drug Abuse Patient Records regulations: The Federal rules restrict any use of the information to criminally investigate or prosecute any alcohol or drug abuse patient.[facility] HospitalIn the event this information is protected by the Federal Confidentiality of Alcohol and Drug Abuse Patient Records regulations: The Federal rules restrict any use of the information to criminally investigate or prosecute any alcohol or drug abuse patient.[facility] HospitalIn the event this information is protected by the Federal Confidentiality of Alcohol and Drug Abuse Patient Records regulations: The Federal rules restrict any use of the information to criminally investigate or prosecute any alcohol or drug abuse patient.[facility] HospitalIn the event this information is protected by the Federal Confidentiality of Alcohol and Drug Abuse Patient Records regulations: The Federal rules restrict any use of the information to criminally investigate or prosecute any alcohol or drug abuse patient.[facility] HospitalIn the event this information is protected by the Federal Confidentiality of Alcohol and Drug Abuse Patient Records regulations: The Federal rules restrict any use of the information to criminally investigate or prosecute any alcohol or drug abuse patient.[facility] HospitalIn the event this information is protected by the Federal Confidentiality of Alcohol and Drug Abuse Patient Records regulations: The Federal rules restrict any use of the information to criminally investigate or prosecute any alcohol or drug abuse patient.[facility] HospitalIn the event this information is protected by the Federal Confidentiality of Alcohol and Drug Abuse Patient Records regulations: The Federal rules restrict any use of the information to criminally investigate or prosecute any alcohol or drug abuse patient.[facility] HospitalIn the event this information is protected by the Federal Confidentiality of Alcohol and Drug Abuse Patient Records regulations: The Federal rules restrict any use of the information to criminally investigate or prosecute any alcohol or drug abuse patient.[facility] HospitalIn the event this information is protected by the Federal Confidentiality of Alcohol and Drug Abuse Patient Records regulations: The Federal rules restrict any use of the information to criminally investigate or prosecute any alcohol or drug abuse patient.[facility] HospitalIn the event this information is protected by the Federal Confidentiality of Alcohol and Drug Abuse Patient Records regulations: The Federal rules restrict any use of the information to criminally investigate or prosecute any alcohol or drug abuse patient.[facility] HospitalIn the event this information is protected by the Federal Confidentiality of Alcohol and Drug Abuse Patient Records regulations: The Federal rules restrict any use of the information to criminally investigate or prosecute any alcohol or drug abuse patient.[facility] HospitalIn the event this information is protected by the Federal Confidentiality of Alcohol and Drug Abuse Patient Records regulations: The Federal rules restrict any use of the information to criminally investigate or prosecute any alcohol or drug abuse patient.[facility] HospitalIn the event this information is protected by the Federal Confidentiality of Alcohol and Drug Abuse Patient Records regulations: The Federal rules restrict any use of the information to criminally investigate or prosecute any alcohol or drug abuse patient.[facility] Care Teams (unrecognized sec tion and content) Colorer Machine Relationship Specialty Start Date End Date Baudilio Sultana MD [address] [place], [place] [id number] PCP - General Family Practice 04/01/18 Jackson Lee Consulting Rheumatology 10/12/17 Colorer Machine Relationship Specialty Start Date End Date Baudilio Sultana MD [address] [place], [place] [id number] PCP - General Family Practice 04/01/18 Jackson Lee Consulting Rheumatology 10/12/17 Colorer Machine Relationship Specialty Start Date End Date Baudilio Sultana MD [address] [facility] [place] [address] PCP - General Family Practice 04/01/18 Jackson Lee Consulting Rheumatology 10/12/17 Colorer Machine Relationship Specialty Start Date End Date Baudilio Sultana MD [address] [facility] [place] [address] PCP - General Family Practice 04/01/18 Jackson Leeo Consulting Rheumatology 10/12/17 Colorer Machine Relationship Specialty Start Date End Date Baudilio Sultana MD [address] [facility] [place] [address] PCP - General Family Practice 04/01/18 Jackson Lee Consulting Rheumatology 10/12/17 Colorer Machine Relationship Specialty Start Date End Date Baudilio Sultana MD [address] [facility] [place] [address] PCP - General Family Practice 04/01/18 Jackson Lee Consulting Rheumatology 10/12/17 Colorer Machine Relationship Specialty Start Date End Date Baudilio Sultana MD [address] [facility] [place] [address] PCP - General Family Practice 04/01/18 Jackson Lee Consulting Rheumatology 10/12/17 Colorer Machine Relationship Specialty Start Date End Date Baudilio Sultana MD [address] [facility] [place] [address] PCP - General Family Practice 04/01/18 Jackson Lee Consulting Rheumatology 10/12/17 Colorer Machine Relationship Specialty Start Date End Date Baudilio Sultana MD [address] [facility] [place] [address] PCP - General Family Practice 04/01/18 Jackson Leeo Consulting Rheumatology 10/12/17 Colorer Machine Relationship Specialty Start Date End Date Baudilio Sultana MD [address] [facility] [place] [address] PCP - General Family Practice 04/01/18 Jackson Lee Consulting Rheumatology 10/12/17 Colorer Machine Relationship Specialty Start Date End Date Baudilio Sultana MD [address] [facility] [place] [address] PCP - General Family Practice 04/01/18 Jackson Lee Consulting Rheumatology 10/12/17 Colorer Machine Relationship Specialty Start Date End Date Baudilio Sultana MD [address] [facility] [place] [address] PCP - General Family Practice 04/01/18 Jackson Lee Consulting Rheumatology 10/12/17 Colorer Machine Relationship Specialty Start Date End Date Baudilio Sultana MD [address] [facility] [place] [address] PCP - General Family Practice 04/01/18 aJckson Lee Consulting Rheumatology 10/12/17 Colorer Machine Relationship Specialty Start Date End Date Baudilio Sultana MD [address] [facility] [place] [address] PCP - General Family Practice 04/01/18 Jackson Lee Consulting Rheumatology 10/12/17 Colorer Machine Relationship Specialty Start Date End Date Baudilio Sultana MD [address] [facility] [place] [address] PCP - General Family Practice 04/01/18 Jackson Lee Consulting Rheumatology 10/12/17 Colorer Machine Relationship Specialty Start Date End Date Baudilio Sultana MD [address] [facility] [place] [address] PCP - General Family Practice 04/01/18 Jackson Lee Consulting Rheumatology 10/12/17 Colorer Machine Relationship Specialty Start Date End Date Baudilio Sultana MD [address] [place], [place] [address] PCP - General Family Medicine 04/01/18 04/24/22 Jackson Lee Consulting Rheumatology 10/12/17 Colorer Machine Relationship Specialty Start Date End Date Baudilio Sultana MD [address] [place], [place] [id number] PCP - General Family Medicine 04/01/18 04/24/22 Jackson Lee Consulting Rheumatology 10/12/17 Colorer Machine Relationship Specialty Start Date End Date Jackson Lee MD Consulting Rheumatology 10/12/17 Colorer Machine Relationship Specialty Start Date End Date Jackson Lee MD Consulting Rheumatology 10/12/17 Colorer Machine Relationship Specialty Start Date End Date Gio Harvey [address], [place] [address] PCP - General Certified Nurse Practitioner 01/13/24 Colorer Machine Relationship Specialty Start Date End Date Gio Harvey [address] [facility] [place] [address] PCP - General Certified Nurse Practitioner 01/13/24 Colorer Machine Relationship Specialty Start Date End Date Baudilio Sultana MD [address] [place], [place] [id number] PCP - General Family Medicine 04/01/18 04/24/22 Jackson Lee MD Consulting Rheumatology 10/12/17 Colorer Machine Relationship Specialty Start Date End Date Gio Harvey [address], [facility] [place], [place] [address] PCP - General Certified Nurse Practitioner 01/13/24 07/09/24 Colorer Machine Relationship Specialty Start Date End Date Gio Harvey [address], [facility] [place] [address] PCP - General Certified Nurse Practitioner 01/13/24 07/09/24 Colorer Machine Relationship Specialty Start Date End Date Raf Casey MD [address] [phone] PCP - General Internal Medicine 08/27/23 Jackson Lee MD Consulting Rheumatology 10/12/17 Colorer Machine Relationship Specialty Start Date End Date Raf Casey MD [address] [phone] PCP - General Internal Medicine 08/27/23 Jackson Lee MD Consulting Rheumatology 10/12/17 Colorer Machine Relationship Specialty Start Date End Date Raf Casey MD [address] [phone] PCP - General Internal Medicine 08/27/23 Jackson Lee MD Consulting Rheumatology 10/12/17 Colorer Machine Relationship Specialty Start Date End Date Raf Casey MD [address] [facility] [address] [place] [address] PCP - General Internal Medicine 08/27/23 Jackson Lee MD Consulting Rheumatology 10/12/17 Colorer Machine Relationship Specialty Start Date End Date Raf Casey MD [address] [facility] [address] [place] [address] PCP - General Internal Medicine 08/27/23 Jackson Lee MD Consulting Rheumatology 10/12/17 Colorer Machine Relationship Specialty Start Date End Date Raf Casey MD [address] [facility] [address] [place] [address] PCP - General Internal Medicine 08/27/23 Jackson Lee MD Consulting Rheumatology 10/12/17 Reason for Visit (unrecogniz ed section and content) Reason Comments Anticoagulation Reason Onset Date Comments Anticoagulation 09/25/2021 Reason Comments Physical moving into assisted living Specialty Diagnoses / Procedures Referred By Enrique t Referred To Contact Family Practice / FAMILY MEDICINE Diagnoses moving into assisted living need ov for this Procedures 4C EST WELL Self Baudilio Sultana MD [address] [place] [address] Referral ID Status Reason Start Date Expiration Date V isits Requested Visits Authorized [id number] Closed Financial Clearance Required - OON Payor Patient Cleared INN/SMCP Payor Auth Obtained 09/23/2021 06/21/2022 1 1 Reason Comments Results Reason Comments Patient Question Orders Reason Onset Date Comments Refill Request 10/08/2021 Reason Onset Date Comments Anticoagulation 11/26/2021 Reason Comments Established Patient Follow Up Ulcer Pain Reason Comments Patient Question Reason Comments Follow Up Ulcer Reason Comments Extremity Weakness Skin Ulcer L foot Reason Comments Insurance Authorization Reason Comments Orders Reason Comments Fall Patient lies in [facility] and fell, +thinners, A&Ox4 Reason Comments Hip Pain Right Fall Reason Comments Skin Ulcer Headache Reason Comments Wound Care Reason Comments Cough 2 days- productive w orse after eating a pizza roll Reason Comments New Knee Pain Reason Comments Established Patient Pain Goals (unrecognized section and content) Goals may be documented in a n alternate section Ordered Prescriptions (unrec ognized section and content) Prescription Sig Dispensed Refills Start Date End Da te doxycycline hyclate (VIBRAMYCIN) 100 MG capsule Take 1 capsule by mouth every 12 hours for 8 doses 8 capsule 0 03/11/2022 03/15/2022 amoxicillin-clavulanat e (AUGMENTIN) 875-125 MG per tablet Take 1 tablet by mouth every 12 hours for 8 doses 8 tablet 0 03/11/2022 03/15/2022 polyethylene glycol (GLYCOLAX) 17 g packet Take 17 g by mouth daily as needed for Constipation 527 g 1 03/11/2022 04/10/2022 Scheduled Active and Recently Administ ered Medications (unrecognized section and content) Medication Order 03/10/2022 03/11/2022 03/12/2022 amoxicillin-clavulanate (AUGMENTIN) 875-125 MG per tablet 1 tablet 1 tablet, Oral, EVERY 12 HOURS SCHEDULED (2 times per day), 10 doses, First dose on 03/10/22 at 2100, Last dose on 03/15/22 at 0900, Antimicrobial Indications: Skin and Soft Tissue Infection, Skin duration of therapy: 5 days 2103 (Given - Provider: Lucy Nicholas LPN) 0747 (Given - Provider: Viktoriya Danielson RN)2037 (Given - Provider: Lucy Nicholas LPN) 0851 (Given - Provider: Viktoriya Danielson RN)2149 (Given - Provider: Alexandra Yao RN) aspirin EC tablet 81 mg 81 mg, Oral, DAILY, First dose on 03/08/22 at 1800, Until Discontinued, Do not crush or break. 0749 (Not Given - Provider: Mable Trejo RN - Reason: Patient/family refused) 0747 (Not Given - Provider: Viktoriya Danielson RN - Reason: Patient/family refused - Comment: pt refused due to high INR) 0846 (Not Given - Provider: Viktoriya Danielson RN - Reason: Patient/family refused) buPROPion (WELLBUTRIN SR) extended release tablet 150 mg 150 mg, Oral, DAILY, First dose (after last modification) on 03/09/22 at 0900, Until Discontinued, Do not crush or break. 0749 (Given - Provider: Mable Trejo RN) 0747 (Given - Provider: Viktoriya Danielson RN) 0851 (Given - Provider: Viktoriya Danielson RN) calcium-cholecalciferol 500-200 MG-UNIT per tablet 1 tablet 1 tablet, Oral, DAILY, First dose on 03/08/22 at 1647, Until Discontinued 0749 (Given - Provider: Malbe Trejo RN) 0747 (Given - Provider: Viktoriya Danielson RN) 0851 (Given - Provider: Viktoriya Danielson RN) cefepime (MAXIPIME) 2000 mg IVPB minibag (CANCELED) 2,000 mg, IntraVENous, at 100 mL/hr, Administer over 30 Minutes, Every 8 hours, First dose on 03/08/22 at 1800, For 5 days 0508 (New Bag - Provider: Alexandra Yao RN)0559 (Stopped - Provider: Alexandra Yao RN) collagenase ointment Topical, DAILY, First dose on 03/09/22 at 1530, Apply to left foot wound. 0751 (Given - Provider: Mable Trejo RN) 0751 (Given - Provider: Viktoriya Danielson RN) 0847 (Not Given - Provider: Viktoriya Danielson RN - Reason: Other - Comment: pt d/c and will change at home) cyanocobalamin injection 1,000 mcg 1,000 mcg, IntraMUSCular, EVERY 30 DAYS, First dose on 04/06/22 at 0900, Until Discontinued doxycycline hyclate (VIBRAMYCIN) capsule 100 mg 100 mg, Oral, EVERY 12 HOURS SCHEDULED (2 times per day), 10 doses, First dose on 03/10/22 at 2100, Last dose on 03/15/22 at 0900, Antimicrobial Indications: Skin and Soft Tissue Infection, Skin duration of therapy: 5 days, This medication can interact with tube feedings (TF)- obtain MD order to manage. Recommend holding TF for 1 h before and 2 h after dose. Take 1 h before or 2 h after dairy, calcium, iron, magnesium, aluminum or zinc. 2103 (Given - Provider: Lucy Nicholas LPN) 0747 (Given - Provider: Viktoriya Danielson RN)2038 (Given - Provider: Lucy Nicholas LPN) 0851 (Given - Provider: Viktoriya Danielson RN)2149 (Given - Provider: Alexandra Yao RN) fluticasone (FLONASE) 50 MCG/ACT nasal spray 2 spray 2 spray, Each Nostril, DAILY, First dose on 03/08/22 at 1800, Until Discontinued 747 (Given - Provider: Mable Trejo RN) 07 (Given - Provider: Viktoriya Danielson RN) 0851 (Given - Provider: Viktoriya Danielson RN) hydroxychloroquine (PLAQUENIL) tablet 200 mg 200 mg, Oral, 2 TIMES DAILY, First dose on 03/09/22 at 1400, Until Discontinued, Do not crush or divide film-coated tablets 0749 (Given - Provider: Mable Trejo RN)2103 (Given - Provider: Lucy Nicholas LPN) 0751 (Given - Provider: Viktoriya Danielson RN)2038 (Given - Provider: Lucy Nicholas LPN) 0851 (Given - Provider: Viktoriya Danielson RN)2149 (Given - Provider: Alexandra Yao, NAWAF) insulin lispro (HUMALOG) injection vial 0-4 Units 0-4 Units, SubCUTAneous, NIGHTLY, First dose on 03/08/22 at 2100, Until Discontinued, If continuous tube feedings/TPN/NPO, give correction dose based on result, no reduction in dose. If eating or bolus tube feeding: Corrective Bedtime Algorithm Glucose: Dose: 70-299 No Insulin 300-349 4 Units Over 349 4 Units and notify physician 2105 (Not Given - Provider: Lucy Nicholas LPN - Reason: Order parameters not met) 2032 (Not Given - Provider: Lucy Nicholas LPN - Reason: Order parameters not met) 2099 (Due) insulin lispro (HUMALOG) injection vial 0-8 Units 0-8 Units, SubCUTAneous, 3 TIMES DAILY WITH MEALS, First dose on 03/08/22 at 1700, Until Discontinued, Medium Dose Corrective Algorithm Glucose: Dose: 70-199 No Insulin 200-249 2 Units 250-299 4 Units 300-349 6 Units Over 349 8 Units and notify physician 0743 (Not Given - Provider: Mable Trejo RN - Reason: Order parameters not met)1228 (Not Given - Provider: Mable Trejo RN - Reason: Order parameters not met)1716 (Not Given - Provider: Mable Trejo RN - Reason: Order parameters not met) 0736 (Not Given - Provider: Viktoriya Danielson RN - Reason: Order parameters not met)1318 (Not Given - Provider: Viktoriya Danielson RN - Reason: Order parameters not met)1728 (Not Given - Provider: Viktoriya Danielson RN - Reason: Order parameters not met) 0848 (Not Given - Provider: Viktoriya Danielson RN - Reason: Order parameters not met)1513 (Not Given - Provider: Viktoriya Danielson RN - Reason: Order parameters not met)1849 (Not Given - Provider: Viktoriya Danielson RN - Reason: Order parameters not met) levothyroxine (SYNTHROID) tablet 150 mcg 150 mcg, Oral, DAILY, First dose on 03/08/22 at 1800, Until Discontinued, Tube feeding (TF) interaction, obtain physician order to manage, recommend holding TF for 30 minutes before and after dose. 06 (Given - Provider: Alexandra Yao RN) 518 (Given - Provider: Lucy Nicholas LPN) 528 (Given - Provider: Lucy Nicholas LPN) magnesium oxide (MAG-OX) tablet 400 mg 400 mg, Oral, DAILY BEFORE BREAKFAST, First dose on 03/09/22 at 0700, Until Discontinued 610 (Given - Provider: Alexandra Yao RN) 518 (Given - Provider: Lucy Nicholas LPN) 528 (Given - Provider: Lucy Nicholas LPN) melatonin capsule 10 mg 10 mg, Oral, NIGHTLY, First dose on 03/08/22 at 2100, Until Discontinued 2103 (Given - Provider: Lucy Nicholas LPN) 2039 (Not Given - Provider: Lucy Nicholas LPN - Reason: Patient/family refused)2325 (Given - Provider: Lucy Nicholas LPN - Comment: Pt was supposed to be d/c and wanted to take at home. D/c got changed due to transportation) 2149 (Given - Provider: Alexandra Yao RN) metoprolol succinate (TOPROL XL) extended release tablet 100 mg 100 mg, Oral, Nightly, First dose (after last modification) on 03/09/22 at 2100, Until Discontinued, Do not crush or chew. 2103 (Given - Provider: Lucy Nicholas LPN) 2038 (Given - Provider: Lucy Nicholas LPN) 2149 (Given - Provider: Alexandra Yao RN) miconazole (MICOTIN) 2 % powder Topical, 2 TIMES DAILY, First dose on 03/08/22 at 2100, Apply to skin folds. Substituted for Nystatin (MICOSTATIN) powder. 0748 (Given - Provider: Mable Trejo RN - Comment: as ordered)2107 (Given - Provider: Lucy Nicholas LPN) 749 (Given - Provider: Viktoriya Danielson RN)2039 (Not Given - Provider: Lucy Nicholas LPN - Reason: Patient/family refused) 0848 (Given - Provider: Viktoriya Danielson RN)2153 (Given - Provider: Alexandra Yao RN) ramipril (ALTACE) capsule 5 mg 5 mg, Oral, DAILY, First dose on 03/08/22 at 1800, Until Discontinued 0749 (Given - Provider: Mable Trejo RN) 0747 (Given - Provider: Viktoriya Danielson RN) 0851 (Given - Provider: Viktoriya Danielson RN) sodium chloride flush 0.9 % injection 5-40 mL 5-40 mL, IntraVENous, EVERY 12 HOURS SCHEDULED (2 times per day), First dose on 03/08/22 at 2100, Until Discontinued, For Line Patency: Peripheral IV = 5 mL; Midline or Central Line = 10 mL/lumen. If following IV push medication, administer flush at same rate as the IV push. Flush volume is determined by type of infusion therapy being given. For non-viscous solutions use: Peripheral IV = 5 mL Midline or Central Line = 10 mL/lumen For viscous solutions (i.e. blood components, parenteral nutrition, contrast media, or after obtaining blood sample) use: Peripheral IV = 10 mL Midline or Central Line = 20 mL/lumen 075 (Not Given - Provider: Mable Trejo RN - Reason: Other - Comment: previously given)2108 (Not Given - Provider: Lucy Nicholas LPN - Reason: Other - Comment: already given) 075 (Given - Provider: Viktoriya Danielson, NAWAF)2032 (Not Given - Provider: Lucy Nicholas LPN - Reason: Loss of IV access) 0849 (Not Given - Provider: Viktoriya Danielson RN - Reason: Loss of IV access)2099 (Due) sodium chloride flush 0.9 % injection 5-40 mL 5-40 mL, IntraVENous, EVERY 12 HOURS SCHEDULED (2 times per day), First dose on 03/08/22 at 2099, Until Discontinued, For Line Patency: Peripheral IV = 5 mL; Midline or Central Line = 10 mL/lumen. If following IV push medication, administer flush at same rate as the IV push. Flush volume is determined by type of infusion therapy being given. For non-viscous solutions use: Peripheral IV = 5 mL Midline or Central Line = 10 mL/lumen For viscous solutions (i.e. blood components, parenteral nutrition, contrast media, or after obtaining blood sample) use: Peripheral IV = 10 mL Midline or Central Line = 20 mL/lumen 0750 (Given - Provider: Mable Trejo RN)2103 (Given - Provider: Lucy Nicholas LPN) 075 (Given - Provider: Viktoriya Danielson, NAWAF)2032 (Not Given - Provider: Lucy Nicholas LPN - Reason: Loss of IV access) 0849 (Not Given - Provider: Viktoriya Danielson RN - Reason: Loss of IV access)2099 (Due) traZODone (DESYREL) tablet 50 mg 50 mg, Oral, NIGHTLY, First dose on 03/08/22 at 2100, Until Discontinued 2103 (Given - Provider: Lucy Nicholas LPN) 2039 (Not Given - Provider: Lucy Nicholas LPN - Reason: Patient/family refused)2326 (Given - Provider: Lucy Nicholas LPN - Comment: Pt was supposed to be d/c and wanted to take at home. D/c got changed due to transportation) 2238 (Given - Provider: Alexandra Yao RN) warfarin (COUMADIN) tablet 1 mg (COMPLETED) 1 mg, Oral, ONCE Warfarin, 1 dose, On 03/12/22 at 1800, Indication of Use: History of DVT/PE (indefinite), What is the patient's goal INR? 2.0 - 3.0, Review INR prior to administration. Hazardous med- See facility policy for handling/disposal 1900 (Given - Provider: Viktoriya Danielson RN) PRN Medication Order 03/10/2022 03/11/2022 03/12/2022 0.9 % sodium chloride infusion IntraVENous, at 5-250 mL/hr, PRN, if patient receiving piggyback infusions and maintenance fluids are not ordered OR KVO fluids to protect IV site / prevent frequent line interruptions/ long duration, Starting on 03/08/22 at 1242, For piggyback infusion, administer at same rate as piggyback for a total of 25 mL. Enter 25 mL into dose field and piggyback rate into rate field of order. If piggyback is infusing at a rate less than 100 mL/hr, enter 25 mL into dose field and 100 mL/hr into rate field of order. For KVO fluids, enter rate of 20 mL/hr or less into rate field of order. 0.9 % sodium chloride infusion IntraVENous, at 5-250 mL/hr, PRN, if patient receiving piggyback infusions and maintenance fluids are not ordered OR KVO fluids to protect IV site / prevent frequent line interruptions/ long duration, Starting on 03/08/22 at 1616, For piggyback infusion, administer at same rate as piggyback for a total of 25 mL. Enter 25 mL into dose field and piggyback rate into rate field of order. If piggyback is infusing at a rate less than 100 mL/hr, enter 25 mL into dose field and 100 mL/hr into rate field of order. For KVO fluids, enter rate of 20 mL/hr or less into rate field of order. acetaminophen (TYLENOL) suppository 650 mg(Linked Group 1) 650 mg, Rectal, EVERY 6 HOURS PRN, Starting on 03/08/22 at 1616, Until Discontinued, Pain Mild (1-3), Fever, For temp greater than 100.4 F (38 C), Administer if oral route cannot be used. 0755 (See Alternative - Provider: Viktoriya Danielson, NAWAF) acetaminophen (TYLENOL) tablet 1,000 mg 1,000 mg, Oral, 2 TIMES DAILY PRN, Starting on 03/08/22 at 1646, Until Discontinued, Pain Mild (1-3), Maximum dose of acetaminophen is 4000 mg from all sources in 24 hours. acetaminophen (TYLENOL) tablet 650 mg(Linked Group 1) 650 mg, Oral, EVERY 6 HOURS PRN, Starting on 03/08/22 at 1616, Until Discontinued, Pain Mild (1-3), Fever, For temp greater than 100.4 F (38 C), Maximum dose of acetaminophen is 4000 mg from all sources in 24 hours. 0755 (Given - Provider: Viktoriya Danielson RN) aluminum & magnesium hydroxide-simethicone (MAALOX) 200-200-20 MG/5ML suspension 30 mL 30 mL, Oral, EVERY 6 HOURS PRN, Starting on 03/10/22 at 0012, Until Discontinued, Indigestion 0017 (Given - Provider: Alexandra Yao RN) dextrose 5 % solution 100 mL/hr, IntraVENous, PRN, Low blood sugar, Starting on 03/08/22 at 1645, Start infusion following administration of dextrose 50% or glucagon. dextrose 50 % IV solution 12.5 g, IntraVENous, PRN, Starting on 03/08/22 at 1645, Until Discontinued, Low blood sugar, Blood glucose less than 70 mg/dL and patient NOT ALERT or NPO., If patient does not respond within 5 minutes, repeat dose x1. Start D5W at 100 mL/hour until ordering provider can be reached. Repeat blood glucose in 15 minutes. If blood glucose is less than 70 mg/dL, repeat treatment and recheck blood glucose in 15 minutes x2. If using Glucostabilizer, dose as instructed per system. glucagon (rDNA) injection 1 mg 1 mg, IntraMUSCular, PRN, Starting on 03/08/22 at 1645, Until Discontinued, Low blood sugar, Blood glucose less than 70 mg/dL and patient NOT ALERT or NPO and does not have IV access., After administration, attempt intravenous access and start D5W at 100 mL/hr. Repeat blood glucose in 15 minutes x2 and notify provider. glucose (GLUTOSE) 40 % oral gel 15 g 15 g, Oral, PRN, Starting on 03/08/22 at 1645, Until Discontinued, Low blood sugar, If blood glucose less than 50 mg/dL and patient ALERT and TOLERATING PO, give 2 tubes glucose gel. If blood glucose less than 70 mg/dL and patient ALERT and TOLERATING PO, give 1 tube glucose gel. Repeat blood glucose in 15 minutes. If blood glucose is less than 70 mg/dL, repeat treatment and recheck blood glucose in 15 minutes x2 and notify provider. HYDROcodone-acetaminophe n (NORCO) 5-325 MG per tablet 1 tablet 1 tablet, Oral, EVERY 6 HOURS PRN, Starting on 03/08/22 at 1646, Until Discontinued, Pain Moderate (4-6), Pain Severe (7-10), Maximum dose of acetaminophen is 4000 mg from all sources in 24 hours. 0508 (Given - Provider: Alexandra Yao RN)1231 (Given - Provider: Mable Trejo RN)2103 (Given - Provider: Lucy Nicholas LPN) 0537 (Given - Provider: Lucy Nicholas LPN)1820 (Given - Provider: Viktoriya Danielson RN) 0026 (Given - Provider: Lucy Nicholas LPN)0850 (Given - Provider: Viktoriya Danielson RN)1900 (Given - Provider: Viktoriya Danielson RN) ondansetron (ZOFRAN) injection 4 mg 4 mg, IntraVENous, EVERY 6 HOURS PRN, Starting on 03/10/22 at 1152, Until Discontinued, Nausea, Vomiting 1226 (Given - Provider: Mable Trejo RN) polyethylene glycol (GLYCOLAX) packet 17 g 17 g, Oral, DAILY PRN, Starting on 03/08/22 at 1620, Until Discontinued, Constipation, First line therapy for constipation sodium chloride flush 0.9 % injection 5-40 mL 5-40 mL, IntraVENous, PRN, Starting on 03/08/22 at 1242, Until Discontinued, Line Care, After every IV line use, For Line Patency: Peripheral IV = 5 mL; Midline or Central Line = 10 mL/lumen. If following IV push medication, administer flush at same rate as the IV push. Flush volume is determined by type of infusion therapy being given. For non-viscous solutions use: Peripheral IV = 5 mL Midline or Central Line = 10 mL/lumen For viscous solutions (i.e. blood components, parenteral nutrition, contrast media, or after obtaining blood sample) use: Peripheral IV = 10 mL Midline or Central Line = 20 mL/lumen sodium chloride flush 0.9 % injection 5-40 mL 5-40 mL, IntraVENous, PRN, Starting on 03/08/22 at 1616, Until Discontinued, Line Care, After every IV line use, For Line Patency: Peripheral IV = 5 mL; Midline or Central Line = 10 mL/lumen. If following IV push medication, administer flush at same rate as the IV push. Flush volume is determined by type of infusion therapy being given. For non-viscous solutions use: Peripheral IV = 5 mL Midline or Central Line = 10 mL/lumen For viscous solutions (i.e. blood components, parenteral nutrition, contrast media, or after obtaining blood sample) use: Peripheral IV = 10 mL Midline or Central Line = 20 mL/lumen Linked Groups Order Group 1: acetaminophen (TYLENOL) tablet 650 mgJump to med 650 mg, Oral, EVERY 6 HOURS PRN, Starting on 03/08/22 at 1616, Until Discontinued, Pain Mild (1-3), Fever, For temp greater than 100.4 F (38 C)
Maximum dose of acetaminophen is 4000 mg from all sources in 24 hours.
Or acetaminophen (TYLENOL) suppository 650 mgJump to med 650 mg, Rectal, EVERY 6 HOURS PRN, Starting on 03/08/22 at 1616, Until Discontinued, Pain Mild (1-3), Fever, For temp greater than 100.4 F (38 C)
Administer if oral route cannot be used.
Scheduled Medication Order 09/04/2022 09/05/2022 09/06/2022 acetaminophen (Tylenol) tablet 650 mg (COMPLETED) 650 mg, Oral, Once, On 09/06/22 at 0810, For 1 dose, Maximum dose of acetaminophen is 4000 mg from all sources in 24 hours. 0831 (Given - Provid er: Lucy Jones RN) Scheduled Medication Order 07/18/2023 07/19/2023 07/20/2023 HYDROcodone-acetaminophen ([place]) 5-325 MG per tablet 1 tablet (COMPLETED) 1 tablet, Oral, Once, On Thu07/19/23 at 2030, For 1 dose, Maximum dose of acetaminophen is 4000 mg from all sources in 24 hours. 2030 (Given - Provider: Pia Caraballo RN) HYDROcodone-acetaminophen ([place]) 5-325 MG per tablet 1 tablet (COMPLETED) 1 tablet, Oral, Once, On Thu07/20/23 at 0105, For 1 dose, Maximum dose of acetaminophen is 4000 mg from all sources in 24 hours. 0154 (Given - Provid er: Gifty Cornell RN) HYDROcodone-acetaminophen ([place]) 5-325 MG per tablet 1 tablet (COMPLETED) 1 tablet, Oral, Once, On Thu07/20/23 at 0650, For 1 dose, Maximum dose of acetaminophen is 4000 mg from all sources in 24 hours. 06 (Given - Provid er: Gifty Cornell RN) Scheduled Medication Order 12/14/2023 12/15/2023 12/16/2023 acetaminophen (Tylenol) tablet 650 mg (COMPLETED) 650 mg, Oral, Once, On Thu12/15/23 at 1830, For 1 dose, Maximum dose of acetaminophen is 4000 mg from all sources in 24 hours. 1843 (Given - Provider: Osvaldo Murdock RN) vancomycin (Vancocin) 2,000 mg in sodium chloride 0.9 % 500 mL IVPB (COMPLETED) 2,000 mg (rounded from 1,932 mg = 20 mg/kg 96.6 kg), IntraVENous, at 166.7 mL/hr, Administer over 180 Minutes, Once, On Thu12/15/23 at 1830, For 1 dose, Suspected Indication (Select all that apply): Skin and Soft Tissue Infection 1845 (Given - Provider: Osvaldo Murdock RN) Scheduled Medication Order 07/08/2024 07/09/2024 07/10/2024 dexAMETHasone (PF) (Decadron) injection 8 mg (COMPLETED) 8 mg, Oral, Once, On 07/10/24 at 0020, For 1 dose 0024 (Given - Provid er: Chhaya Osborn, NAWAF) glucagon (human recombinant) injection 1 mg (COMPLETED) 1 mg, IntraMUSCular, Once, On 07/09/24 at 2325, For 1 dose 2340 (Given - Provider: Chhaya Osborn RN) FOR RECORDS PERTAINING TO PATIENTS WHO ARE OR HAVE BEEN ENROLLED IN A CHEMICAL DEPENDENCY/SUBSTANCEABUSE PROGRAM, SOME INFORMATION MAY BE OMITTED. This clinical summary was aggregated from multiple sources. Caution should be exercised in using it in the provision of clinical care. This summary normalizes information from multiple sources, and as a consequence, information in this document may materially change the coding, format and clinical context of patient data. In addition, data may be omitted in some cases. CLINICAL DECISIONS SHOULD BE BASED ON THE PRIMARY CLINICAL RECORDS. [facility] [employer] [facility]. provides no warranty or guarantee of the accuracy or completeness of information in this document.
[2024-12-05 09:29] LABS: Hematocrit 31.9 % (37-47); Hemoglobin 10.4 g/dL (12.0-15.0); Mean Corp Hgb Conc 32.6 g/dL (32-36); Mean Corpuscular Hgb 30.2 pg (27.0-32.0); Mean Corpuscular Volume 92.7 fL (81-99); Mean Platelet Vol. 10.1 fl (6.2-12.0); Platelet Count 147 K/mm3 (150-450); RBC Distribution Width CV 13.6 % (11.6-14.6); RBC Distribution Width SD 45.9 fl (35.1-43.9); Red Blood Count 3.44 M/mm3 (4.2-5.4); White Blood Count 4.1 K/mm3 (4.4-11.0)
[2024-12-05 09:40] LABS: International Normalized Ratio 1.7; Prothrombin Time (Protime)PT. 20.2 SECONDS (11.7-14.9)
[2024-12-05 09:47] LABS: Anion Gap 6 (5-15); BUN 16 mg/dL (4-19); BUN/Creat Ratio 17.2 RATIO (10-20); Calcium,Total 8.5 mg/dL (7.6-11.0); Carbon Dioxide 26.6 mmol/L (21.0-32.0); Chloride 107 mmol/L (98-108); Creatinine, Serum 0.93 mg/dL (0.70-1.20); EST Glomerular Filtration Rate 65 (>60); Glucose 97 mg/dL (70-99); Potassium 4.9 mmol/L (3.3-5.1); Sodium Level 140 mmol/L (133-145)
== END ==
LOC: OLS.WCC 05:00
PROVIDERS: PCP Family Medicine; Visit Provider Family Medicine
DX: I10 Essential (primary) hypertension (principal); G80.8 Other cerebral palsy; I25.10 Atherosclerotic heart disease of native coronary artery without angina pectoris; E11.42 Type 2 diabetes mellitus with diabetic polyneuropathy; Z79.899 Other long term (current) drug therapy
CPT/HCPCS: 36415; 80048; 85027; 85610

== ENCOUNTER → 2024-12-19 | Outpatient (REF) | payer MEDICARE, MEDICAID, SELFPAY ==
--- OUTSIDE RECORDS SUMMARY | 2024-12-19 04:28 | XMS RPT_ITS | CCD ---
Author Organization [facility] Care Team Providers Care 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 Name Role Phone ARTURO ERWINNETH E Unavailable Unavailable YAIMAARTURO CODYNETH E Unavailable [...] HUTSON Referring Unavailable Jackson Lee MD Unavailable [phone] Unavailable Primary Care Provider UnavailGio Ureña Primary Care Provider Baudilio Sultana MD Primary Care Provider Gio Harvey Primary Care Provider [phone] GIO HARVEY Primary Care Unavailable ISAAC CHICAS [...] Unavailable Raf Casey MD Primary Care Provider [phone] KYMBERLY, [employer] Primary Care Unavailable KYMBERLY, [employer] Primary Care Unavailable SAGE LOERA Attending Unavailabl e MABLE BARKER Admitting Unavailable TESTRASTEVEN XAVIER Referring Unavailable KYMBERLY, [employer] Primary Care Unavailable Baudilio Sultana Primary Care Unavailable Min Rojas Attending Unavailable STEVEN PELAEZ Referring Unavailable KYMBERLY, [employer] Primary Care Unavailable STEVEN PELAEZ Attending Unavailable KYMBERLY, [employer] L Primary Care Unavailable MENDEL SHARMA Attending Unavailable SAGE LOERA Referring Unavailabl e KYMBERLY, [employer] Primary Care Unavailable LULA GENE Maryellen Attending Unavailable [employer], [employer] L Primary Care [...] cephalexin; Translations: [CEPHALEXIN] Drug Allergy 5 Itching [facility] Repository (20 sources) ciprofloxacin; Translations: [CIPROFLOXACIN] Drug Allergy 1 Rash [facility] Repository (20 sources) erythromycin; Translations: [ERYTHROMYCIN] Drug Allergy 5 Itching [facility] Repository (20 sources) naproxen; Translations: [NAPROXEN] Drug Allergy 5 Intolerance [facility] Repository (20 sources) PARoxetine; Translations: [PAROXETINE HCL] Drug Allergy 5 Mental Status Change [facility] Repository (20 sources) Penicillins; Translations: [PENICILLINS] Propensity to adverse reactions to drug (disorder) 1 Hives, Unknown, Other [facility] Repository (20 sources) PROMETHAZINE-PHE NYLEPHRINE; Translations: [PROMETHAZINE-PH ENYLEPHRINE] Propensity to adverse reactions to drug (disorder) 5 Mental Status Change, Other [facility] Repository (4 sources) OTHER; Translations: [OTHER] Propensity to adverse reactions (disorder) 2 AOF [facility] Repository (20 sources) HMG-CoA reductase inhibitor; Translations: [NFVMDZD-IGQ-CLE REDUCTASE INHIBITORS] Drug Intolerance 9 Myalgia [facility] Work Phone: (20 sources) paper tape [Other] Propensity to adverse reactions 2 Intolerance [facility] Work Phone: (2 sources) Cephalexin; Translations: [cephalexin monohydrate] Drug Allergy 1 Unknown [facility] Repository (1 source) Erythromycin Drug Allergy 1 Unknown [facility] Work Phone: (2 sources) Promethazine; Translations: [promethazine HCl] Drug Allergy 1 Unknown [facility] Repository (2 sources) Sxnwhdy-Hnq-Jyn Reductase Inhibitor; Translations: [Eqqnmah-Hmp-Jvf Reductase Inhibitor] Propensity to adverse reactions 1 Myalgias [facility] Repository (1 source) PAPER TAPE Propensity to adverse reactions 1 Rash [facility] Work Phone: (18 sources) HMG-CoA reductase inhibitor Drug Intolerance 9 Myalgia [facility] Work Phone: (3 sources) Adhesive Tape Propensity to adverse reactions to drug 2 Unknown [facility] (5 sources) Cheese; Translations: [CHEESE] Propensity to adverse reactions to drug 2 Diarrhea, Nausea And Vomiting, GI Upset [facility] (1 source) Hmg-Coa Reductase Inhibitors (Statins) Propensity to adverse reactions to drug 2 [facility] Work Phone: (20 sources) Promethazine; Translations: [PROMETHAZINE] Drug Allergy 9 Unknown, Intolerance [facility] Work Phone: (20 sources) PARoxetine; Translations: [PAROXETINE] Drug Allergy 9 Unknown, Intolerance [facility] (20 sources) 5-Alpha Reductase Inhibitors Propensity to adverse reactions 3 [facility] (11 sources) Adhesive Tape-Silicones; Translations: [ADHESIVE TAPE-SILICONES] Drug Allergy 3 Unknown, Rash [facility] (11 sources) Adhesive Tape Propensity to adverse reactions 4 [facility] (7 sources) Wound Dressing Adhesive Drug Allergy 3 Unknown [facility] (9 sources) Adhesive Tape; Translations: [ADHESIVE TAPE (ROSINS)] Propensity to adverse reactions to substance 1 [facility] Work Phone: (2 sources) Adhesive agent; Translations: [ADHESIVE] Propensity to adverse reactions to drug (disorder) 2 [facility] Other [place] Repository (1 source) Adhesive Tape Drug allergy (disorder) 2 [facility] Repository (1 source) Erythromycin Drug Allergy 2 [facility] Repository Medications Current Medications Medication Drug Class(es) [...] 24 hours. take 2 tablets by mo ut twice daily as needed for pain acetaminophen [...] on above: Take 1 tablet by rajan once daily. benzonatate 100 mg oral capsule [...] Phosphate Binder, Calcium Start: 06-12-2019 Calcium Carb-D3-Mag Udz27-Fuul Active 1 EACH PO DAILY June 12, [...] on above: Take 1 tablet by rajan once daily. cholecalciferol 0.05 mg oral tablet (20 sources) Vitamin D Start: 9 take 2000 [IU] by mouth once daily Cholecalciferol (Vitamin D3) Active 2000 UNIT PO DAILY May 26, 2019 2:11pm take 1 capsule by mouth once anna ly cholecalciferol (Vitamin D-3) 50 MCG (1999 UT) capsule Take 2,000 Units by mouth daily. Active Comment on above: Take 1 capsule by mo [facility] once daily. clindamycin 300 mg oral capsule [...] Active Start: 03-09-2022 [facility] mg, Oral, 2 TIMES [...] day. 09/28/2024 Active take 1 capsule by [facility] every eight hours as needed hydrOXYzine [...] Womens Multivitamin preparation (1 source) Start: 05-26-20 take 1 tablet by mouth once daily [...] 3 times daily. Active nystatin (Mycost atin) 525601 UNIT/GM powder Apply topically 2 times daily. [...] injection (1 source) Serotonin-3 Receptor Antagonist Start: 2 ondansetron (ZOFRAN) injection 4 mg oxyCODONE hydrochloride 5 mg oral tablet (4 sources) Opioid Agonist Start: 5 End: 5 take 1 tablet by mouth every eight [...] January 07, 2014 9:25am polyethylene glycol 3350 82506 mg powder for oral solution (2 sources) [...] 3 07/24/2021 Active take 1 capsule by [facility] every twenty-four hours ramipril (Altace) 5 MG capsule Take 1 capsule by mouth Every 24 hours. Active Comment on above: Take 1 capsule by [facility] once daily. 5 ml sodium chloride 9 [...] Active Start: 09-17-2022 take 1 tablet by [facility] once daily in the evening traZODone [...] Discontinued Start: 05-26-2019 take 2 tablets by mo [facility] once daily Warfarin (Coumadin) 2.5 mg tablet [...] days. takes 5 per week 7.5 mg Mon/Fri, 5 mg all other days or as directed Completed/Discontinued Medications Medication Drug Class(es) Dates Sig (Normalized) Sig (Original) acetaminophen 325 mg / HYDROcodone bitartrate 5 mg oral tablet (20 sources) Opioid Agonist Start: 07-19-2023 End: 07-20-2023 HYDROcodone-acetam inophen ([place]) 5-325 MG per tablet 1 tablet Start: [...] Start: 05-04-2019 take 2 spray(s) by m out once daily fluticasone (FLONASE) 50 mcg/actuation nasal [...] mg injection (3 sources) Antihypoglycemic Agent Start: End: 5 inject 1 mg by intramuscular [...] disease (20 sources) Atherosclerotic heart disease of [place] coronary artery without angina pectoris; Translations: [Coronary [...] 4 05-04-2023 Chronic Other aftercare (2 sources) penitentiary (current) use of anticoagulants; Translations: [penitentiary (current) use of anticoagulants] Onset: 2 Episodic Other aftercare (2 sources) penitentiary (current) use of oral hypoglycemic drugs; Translations: [penitentiary (current) use of oral hypoglycemic drugs] Onset: 2 Episodic Other aftercare (2 sources) penitentiary (current) use of aspirin; Translations: [joint terminal attack controller (current) use of aspirin] Onset: 2 Episodic Other aftercare (2 sources) penitentiary (current) use of opiate analgesic; Translations: [penitentiary (current) use of opiate analgesic] Onset: 2 [...] ankle] 10-27-2024 Episodic Other non-traumatic joint disorders (2 sources) Pain in left ankle and joints of left foot; Translations: [Chronic pain of left ankle] Onset: 5 Episodic Other non-traumatic joint disorders (1 source) Other instability, left ankle; Translations: [Ankle instability, left] Onset: 5 Episodic Other nutritional; endocrine; and [...] Test Name Value Interpretation Reference Range Facility OVon 12-06-2024 CNOV Office Visit (PSYLWM ) DALERANDOLPH ([id number]) 1950 F Date Time Provider Department 12/06/24 11:00 AM GILMER COTTON PSYLWM During your visit today, we recorded the following information about you: Gilmer Cotton, PhD 12/06/2024 12:04 PM Signed [facility] Department Progress Note Randolph Abiodun aDle 12/06/2024 [id number] PROVIDER: Gilmer Cotton, PhD CPT Code: Time: 50 minutes Setting: Patient seen in person Parties Present: Patient Treatment Modality/Interventions: Cognitive Behavioral Reassurance/Supportive Insight oriented Problem solving Processing of emotions Psychoeducation MENTAL STATUS: Mood: variable Affect: mood-congruent Thoughts/Associations:goal directed Suicidal/Homicidal Ideation: None expressed or evidenced Other Prominent Symptoms: Therapy Focus/Content of Session: Self-care, Mood/affect regulation, Self-esteem, and Coping with chronic illness Pt moved now a week at [place] so far and she believes it was a good move As Usual: she will help get care up to speed and work w the staff Thus far... she has had a positive response from the Charge Nurse when a floor nurse was amandeep and disrespectful So far she and Clovis are sharing a room and soon Clovis will have an Assisted Living room while she is in [facility] Nursing rooms MEDICATIONS: Per medical record: Current Outpatient Medications [...] directed once a month. blood sugar diagnostic (TistagamesUCH VERIO TEST STRIPS) test strip Test blood [...] Issues: No change from previous appointment DIAGNOSIS: [place] I: Depres (more content not included)... Normal [facility] Basic Metabolic Profile (BMP )on 12-05-2024 BUN/CRE 17.2 RATIO Normal 10-20 [facility] Comment on above: Order Comment: 130.2 Performed By: #### L 300.3900, L500.2500, L100.0500 #### [facility] [address] [place], [address] Calcium [Mass/Vol] 8.5 mg/dL Normal 7.6-11.0 [facility] Comment on above: Order Comment: 130.2 Performed By: #### L 300.3900, L500.2500, L100.0500 #### [facility] [address] [place], [address] Chloride [Moles/Vol] 107 mmol/L Normal 98-108 [facility] Comment on above: Order Comment: 130.2 Performed By: #### L 300.3900, L500.2500, L100.0500 #### [facility] [address] [place], [address] CO2 [Moles/Vol] 26.6 mmol/L Normal 21.0-32.0 [facility] Comment on above: Order Comment: 130.2 Performed By: #### L 300.3900, L500.2500, L100.0500 #### [facility] [address] [place], [address] Creatinine [Mass/Vol] 0.93 mg/dL Normal 0.70-1.20 [facility] Comment on above: Order Comment: 130.2 Performed By: #### L 300.3900, L500.2500, L100.0500 #### [facility] [address] [place], [address] GAP 6 Normal 5-15 [facility] Comment on above: Order Comment: 130.2 Performed By: #### L 300.3900, L500.2500, L100.0500 #### [facility] [address] [place], [address] GFR/1.73 sq M.predicted among non-blacks MDRD (S/P/Bld) [Vol rate/Area] 65 mL/min/{1.73_m2} Normal >60 [facility] Comment on above: Order Comment: 130.2 Result Comment: mL/m in/1.73m2 CKD-EPI Creatinine Equation (2020) Performed By: #### L 300.3900, L500.2500, L100.0500 #### [facility] [address] [place], [address] Glucose [Mass/Vol] 97 mg/dL Normal 70-99 [facility] Comment on above: Order Comment: 130.2 Performed By: #### L 300.3900, L500.2500, L100.0500 #### [facility] [address] [place], [address] Potassium [Moles/Vol] 4.9 mmol/L Normal 3.3-5.1 [facility] Comment on above: Order Comment: 130.2 Result Comment: Hemo lysis present, Results??could be affected. ?? Performed By: #### L 300.3900, L500.2500, L100.0500 #### [facility] [address] [place], [address] Sodium [Moles/Vol] 140 mmol/L Normal 133-145 [facility] Comment on above: Order Comment: 130.2 Performed By: #### L 300.3900, L500.2500, L100.0500 #### [facility] [address] [place], [address] Urea nitrogen [Mass/Vol] 16 mg/dL Normal 4-19 [facility] Comment on above: Order Comment: 130.2 Performed By: #### L 300.3900, L500.2500, L100.0500 #### [facility] [address] [place], [address] CBC-Complete Blood Cnt No Di ffon 12-05-2024 Erythrocyte distribution width (RBC) [Ratio] 13.6 % Normal 11.6-14.6 [facility] Comment on above: Order Comment: 130.2 Performed By: #### L 300.3900, L500.2500, L100.0500 #### [facility] [address] [place], [address] Hematocrit (Bld) [Volume fraction] 31.9 % Low 37-47 [facility] Comment on above: Order Comment: 130.2 Performed By: #### L 300.3900, L500.2500, L100.0500 #### [facility] [address] [place], [address] Hemoglobin (Bld) [Mass/Vol] 10.4 g/dL Low 12.0-15.0 [facility] Comment on above: Order Comment: 130.2 Performed By: #### L 300.3900, L500.2500, L100.0500 #### [facility] [address] [place], [address] MCH (RBC) [Entitic mass] 30.2 pg Normal 27.0-32.0 [facility] Comment on above: Order Comment: 130.2 Performed By: #### L 300.3900, L500.2500, L100.0500 #### [facility] [address] [place], [address] MCHC (RBC) [Mass/Vol] 32.6 g/dL Normal 32-36 [facility] Comment on above: Order Comment: 130.2 Performed By: #### L 300.3900, L500.2500, L100.0500 #### [facility] [address] [place], [address] MCV (RBC) [Entitic vol] 92.7 fL Normal 81-99 [facility] Comment on above: Order Comment: 130.2 Performed By: #### L 300.3900, L500.2500, L100.0500 #### [facility] [address] [place], [address] Platelet mean volume (Bld) [Entitic vol] 10.1 fL Normal 6.2-12.0 [facility] Comment on above: Order Comment: 130.2 Performed By: #### L 300.3900, L500.2500, L100.0500 #### [facility] [address] [place], [address] Platelets (Bld) [#/Vol] 147 10*3/uL Low 150-450 [facility] Comment on above: Order Comment: 130.2 Performed By: #### L 300.3900, L500.2500, L100.0500 #### [facility] [address] [place], [address] RBC (Bld) [#/Vol] 3.44 10*6/uL Low 4.2-5.4 [facility] Comment on above: Order Comment: 130.2 Performed By: #### L 300.3900, L500.2500, L100.0500 #### [facility] [address] [place], [address] RDW SD 45.9 fl High 35.1-43.9 [facility] Comment on above: Order Comment: 130.2 Performed By: #### L 300.3900, L500.2500, L100.0500 #### [facility] [address] [place], [address] WBC (Bld) [#/Vol] 4.1 10*3/uL Low 4.4-11.0 [facility] Comment on above: Order Comment: 130.2 Performed By: #### L 300.3900, L500.2500, L100.0500 #### [facility] [address] [place], [address] Prothrombin Time w/INRon INR Coag (PPP) [Relative time] 1.7 {INR} Normal [facility] Comment on above: Order Comment: 130.2 Performed By: #### L 300.3900, L500.2500, L100.0500 #### [facility] [address] [place], [address] PT Coag (PPP) [Time] 20.2 s High 11.7-14.9 [facility] Comment on above: Order Comment: 130.2 Performed By: #### L 300.3900, L500.2500, L100.0500 #### [facility] [address] [place], [address] MRI ANKLE WO IVCON LTon 05-2 MRI [...] number above, please feel free to contact [facility] eRadiology at [phone]. [id number] [facility] CNOVon 10-27-2024 CNOV Office Visit (PODIWS ) RANDOLPH HUNTER ([id number]) 1950 F Date Time Provider Department 10/27/24 11:15 AM STEVEN PELAEZS During your visit today, we recorded the [...] and injured herself. She is currently at [facility]. Has a history of cerebral palsy with [...] sugar diagnost (more content not included)... Normal [facility] XR ANKLE 3V AP/LAT/OBL LTon 10-27-2024 XR [...] No radiographic evidence of acute osseous injury Snuff Grinder: [facility] Transcribe Date/Time: Nov 01 2024 4:44P Dictated by : JAYDEN JOVEL MD This examination was interpreted and the report reviewed and electronically signed by: JAYDEN JOVEL MD on Nov 01 2024 4:45PM EST [id number] Normal [facility] XR TIBIA FIBULA 2V AP/LAT LT on [...] No radiographic evidence of acute osseous injury Snuff Grinder: [facility] Transcribe Date/Time: Nov 01 2024 4:44P Dictated by : JAYDEN JOVEL MD This examination was interpreted and the report reviewed and electronically signed by: JAYDEN JOVEL MD on Nov 01 2024 4:45PM EST [id number] Normal [facility] PT panel Coag (PPP)on 2024 INR Coag (PPP) [Relative time] 2.3 {INR} High 0.9-1.3 [facility] Comment on above: Order Comment: Suzanne garcia Type: BLOOD SPECIMEN Ordering Facility: [facility] Address: [address] [place] [address] Result Comment: Kaycee min K Antagonist (VKA) Therapeutic Range: INR 2 to 3 (Target INR of 2.5) Note: For patients treated with VKA drugs, such as warfarin, the [place] [employer] 2012 Guideline recommends [...] Chest 2012, 141:7S-47S Roshni RA, et al. JACC 2017, 70: 252-289 Performed By: #### 3 4528-0 #### [facility] CLIA [id number] [address] [place], [place] [id number] [place] PT Coag (PPP) [Time] 23.1 s High 9.7-13.0 [facility] Comment on above: Order Comment: Suzanne garcia Type: BLOOD SPECIMEN Ordering Facility: [facility] Address: [address] [place] [address] Performed By: #### 3 4528-0 #### [facility] CLIA [id number] [address] [place], [place] [address] [facility] PT panel Coag (PPP)on 2024 INR Coag (PPP) [Relative time] 3.8 {INR} High 0.9-1.3 [facility] Comment on above: Order Comment: Suzanne garcia Type: BLOOD SPECIMEN Ordering Facility: [facility] Address: [address] [place] [address] Result Comment: Kaycee min K Antagonist (VKA) Therapeutic Range: INR 2 to 3 (Target INR of 2.5) Note: For patients treated with VKA drugs, such as warfarin, the [place] [employer] 2012 Guideline recommends [...] Chest 2012, 141:7S-47S Roshni RA, et al. [facility] 2017, 70: 252-289 Performed By: #### 3 4528-0 #### [facility] CLIA [id number] [address] [place] [address] [place] PT Coag (PPP) [Time] 37.1 s High 9.7-13.0 [facility] Comment on above: Order Comment: Suzanne garcia Type: BLOOD SPECIMEN Ordering Facility: [facility] Address: [address] [place] [address] Performed By: #### 3 4528-0 #### [facility] CLIA [id number] [address] [place], [place] [address] [place] CNOVon 10-19-2024 CNOV Office Visit (ORMDNA ) RANDOLPH HUNTER ([id number]) 1950 F Date Time Provider Department 10/19/24 9:30 AM MENDEL SHARMA During your visit today, we recorded the [...] directed once a month. blood sugar diagnostic (PIERIS ProteolabTOUCH VERIO TEST STRIPS) test strip Test blood [...] Status Change Penicillins Hives Dioxicillin Promethazine Intolerance Cyvsdvr-Qda-Eeg Red* Myalgia PAST MEDICAL HISTORY PAST MEDICAL HISTORY Diagnosis Date CAD (coronary artery disease) Carotid a (more content not included)... Normal [facility] Large Joint Arthro/Inj: L kn ee jointon [...] these instructions. Informed Consent Consent Obtained: Verbal [place] Protocol A moment to CARE was completed. [...] the bedside nurse for hospitalized patients) applicable. [facility] CNDSon 09-28-2024 CNDS HNO ID: [id number] Author: SAGE LOERA MD Service: Hospital Medicine [...] inability to stand pivot necessitating going to assisted facility for rehab SUMMARY OF WHAT HAPPENED WHILE I WAS IN THE HOSPITAL: Orthopedics agrees no surgical intervention now resume exercises when you get to the assisted facility no ligamentous injury evident on CT [...] No pending results Discharge Disposition Discharge Disposition: Fpc Facility - Less than 30 Days Activity [...] to bear weight to transfer will need assisted home placement Anticoagulation: Prior to admission: Warfarin [...] (cerebral palsy) (HCC) (POA: Yes) --Presented to [place] ED for evaluation of left knee pain [...] lupus erythematosus) (HCC) (POA: Yes) --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 Normal [facility] Magnesium SerPl-mCncon 09-28 Magnesium [Mass/Vol] 1.7 mg/dL Normal 1.7-2.3 [facility] Comment on above: Order Comment: Suzanne garcia Type: BLOOD SPECIMENOrdering Facility: [facility] Address: [address] [place] [address] Performed By: #### 1 9123-9 ####[facility] [id number] [place] [id number] [facility] NURSING PROGon 09-28-2024 NURSING PROG HNO ID: [id number] Author: CHARLEY BARRIENTOS RN Service: Nursing Author Type: Registered Nurse Type: Nursing Progress Note Filed: 09/28/2024 16:32 Note Text: Other: 1625: Patient discharged in stable condition. Left floor via cart w/[employer]. Discharge paperwork and all personal belongings w/patient. Normal [facility] PT panel Coag (PPP)on 2024 INR Coag (PPP) [Relative time] 2.1 {INR} High 0.9-1.3 [facility] Comment on above: Order Comment: Suzanne garcia Type: BLOOD SPECIMENOrdering Facility: [facility] Address: [address] [place] [address] Result Comment: Kaycee min K Antagonist (VKA) Therapeutic Range: INR 2 to 3 (Target INR of 2.5) Note: For patients treated with VKA drugs, such as warfarin, the [employer] [employer] 2012 Guideline recommends [...] Chest 2012, 141:7S-47S Roshni RA, et al. [facility] 2017, 70: 252-289 Performed By: #### 3 4528-0 ####[facility] [id number] [place] [id number] [place] PT Coag (PPP) [Time] 22.0 s High 9.7-13.0 [facility] Comment on above: Order Comment: Suzanne garcia Type: BLOOD SPECIMENOrdering Facility: [facility] Address: [address] [place] [address] Performed By: #### 3 4528-0 ####[facility]ATORYCLIA [id number] [place] [address] [facility] PT panel Coag (PPP)on 2024 INR Coag (PPP) [Relative time] 2.8 {INR} High 0.9-1.3 [facility] Comment on above: Order Comment: Suzanne garcia Type: BLOOD SPECIMENOrdering Facility: [facility] Address: [address] [place] [address] Result Comment: Kaycee min K Antagonist (VKA) Therapeutic Range: INR 2 to 3 (Target INR of 2.5) Note: For patients treated with VKA drugs, such as warfarin, the [employer] of Chest Physicians 2012 Guideline recommends [...] Chest 2012, 141:7S-47S Roshni RA, et al. [facility] 2017, 70: 252-289 Performed By: #### 3 4528-0 ####[facility] HA[facility] LABORATORYCLIA [id number] [place] [id number] [facility] [place] PT Coag (PPP) [Time] 27.9 s High 9.7-13.0 [facility] Comment on above: Order Comment: Speci men Type: BLOOD SPECIMENOrdering Facility: [facility] Address: [facility] [place] [address] Performed By: #### 3 4528-0 ####BL[facility] HAWK LABORATORYCLIA [id number] [place] [id number] [facility] NUTRITIONon 09-26-2024 NUTRITION HNO ID: [id number] Author: SALVADOR ISLAS RD Service: Nutrition Therapy [...] Drain Duration External Collection Device 09/18/24 2332 [facility] 7 days MNT Billing: $ Reassessment: 1-15 minutes SIGNATURE: Salvador Islas RD PATIENT NAME: Randolph Hunter DATE: September 26, 2024 TIME: 3:09 PM Normal [facility] PT panel Coag (PPP)on 2024 INR Coag (PPP) [Relative time] 4.1 {INR} High 0.9-1.3 [facility] Comment on above: Order Comment: Suzanne garcia Type: BLOOD SPECIMENOrdering Facility: [facility] Address: [address] [place] [address] Result Comment: Kaycee min K Antagonist (VKA) Therapeutic Range: INR 2 to 3 (Target INR of 2.5) Note: For patients treated with VKA drugs, such as warfarin, the [place] [employer] 2012 Guideline recommends [...] Chest 2012, 141:7S-47S Roshni RA, et al. [facility] 2017, 70: 252-289 Performed By: #### 3 4528-0 ####[facility]ES LABORATORYCLIA [id number] [address] OF [facility] PT Coag (PPP) [Time] 39.9 s High 9.7-13.0 [facility] Comment on above: Order Comment: Suzanne garcia Type: BLOOD SPECIMENOrdering Facility: [facility] Address: [address] [place] [id number] Performed By: #### 3 4528-0 ####CERVANTES LABORATORYCLIA [id number] [place] [address] [facility] THERAPY NTon 09-26-2024 THERAPY NT HNO ID: [id number] Author: ESTELLE CAGE PT Service: Physical Therapy Author Type: Physical Therapist Type: Therapy (PT/OT/Speech/Resp) Filed: 09/26/2024 12:08 Note Text: Summary: PT treatment Physical Therapy Treatment Summary SERVICE DATE: 09/26/2024 SERVICE TIME: 1130 to 1155 ROOM: [place] [address] PT 6 Clicks Score: 14 DISCHARGE RECOMMENDATIONS [...] is struggling to ambulate. Patient admitted to [facility] with Dx: Decreased activities of daily living (ADL), Fall at home, initial encounter Relevant Past Medical History: DM, edema, depression,asthma, obesity, irsutism, venous insufficiency, oseteomyeliitis of foot, SLE, cerebral palsy, pulmonary embolism, hypothyroidism, insomnai, CAD, migraines, HTN, hysterectomy HOME LIVING Patient Lives With: Facility Care, Spouse, Other: See Comment Comments: [facility] with spouse Assistance Available: 24-Hour Comments: [facility] staff for toileting and shower Entry To Home: No Stairs Number Of Stairs To Bed/Bath: 0 Tub/Shower Type: Accessible WIS with shower chair + grab bars, has assistance/supervision for transfers Laundry: [facility] staff completes Equipment Owned: Lift Chair, Commode- [...] DIAGNOSIS Reduced mobility-other TREATMENT INTERVENTIONS Therapeutic Activity (06784) Timed Code Treatment (minutes): 25 Skilled Treatment Time (minutes): 25 Therapeutic Activity (79822) Treatment Minutes: 25 $ Therapeutic Activity (85716) Billed Units: 2 units TRAINING AND EDUCATION [...] Assistance, Additional Inform (more content not included)... [facility] THERAPY NT HNO ID: [id number] Author: BARBARA CHU OTR/Abiodun Service: Occupational Therapy Author Type: Occupational Therapist Type: Therapy (PT/OT/Speech/Resp) Filed: 09/26/2024 11:51 Note Text: Summary: OT precert note Occupational Therapy Treatment Summary SERVICE DATE: 09/26/2024 SERVICE TIME: 1100 to 1136 ROOM: [id number] OT 6 Clicks Score: 13 DISCHARGE RECOMMENDATIONS [...] is struggling to ambulate. Patient admitted to [facility] with Dx: Decreased activities of daily living (ADL), Fall at home, initial encounter Relevant Past Medical History: DM, edema, depression,asthma, obesity, irsutism, venous insufficiency, oseteomyeliitis of foot, SLE, cerebral palsy, pulmonary embolism, hypothyroidism, insomnai, CAD, migraines, HTN, hysterectomy HOME LIVING Patient Lives With: Facility Care, Spouse, Other: See Comment Comments: [place] with spouse Assistance Available: 24-Hour Comments: [facility] staff for toileting and shower Entry To Home: No Stairs Number Of Stairs To Bed/Bath: 0 Tub/Shower Type: Accessible WIS with shower chair + grab bars, has assistance/supervision for transfers Laundry: [facility] staff completes Equipment Owned: Lift Chair, Commode- [...] symptoms and signs-other TREATMENT INTERVENTIONS Therapeutic Exercise (15197), Self Shelter Management (79079) Timed Code Treatment (minutes): 27 Skilled Treatment [...] Contact Guard Assista (more content not included)... [facility] THERAPY NT HNO ID: [id number] Author: ESTELLE CAGE PT Service: Physical Therapy Author Type: Physical Therapist Type: Therapy (PT/OT/Speech/Resp) Filed: 09/26/2024 10:54 Note Text: PHYSICAL THERAPY MISSED VISIT SERVICE DATE: 09/26/2024 SERVICE TIME: 1044 ROOM: [place] [address] Patient not seen due to Patient Not Available.patient was cleaned up and had another bowel movement and has called for assist getting cleaned up. Will re approach when available/appropriate. Secure chat to team and spoke with cm. SIGNATURE: Estelle Cage PT PATIENT NAME: Randolph Hunter DATE: September 26, 2024 TIME: 10:53 AM [facility] THERAPY NT HNO ID: [id number] Author: ESTELLE CAGE PT Service: Physical Therapy Author Type: Physical Therapist Type: Therapy (PT/OT/Speech/Resp) Filed: 09/26/2024 09:42 Note Text: Summary: PT missed visit PHYSICAL THERAPY MISSED VISIT SERVICE DATE: 09/26/2024 SERVICE TIME: 929 ROOM: [place] [address] Patient not seen due to Patient Not Available. Patient was incontinent of bowel and PCNA in room to get patient cleaned up. Received request from for precert. Will re approach as patient is available. SIGNATURE: Estelle Cage PT PATIENT NAME: Randolph Hunter DATE: September 26, 2024 TIME: 9:41 AM [facility] THERAPY NT HNO ID: [id number] Author: TANIA PERDUE OT/Abiodun Service: Occupational Therapy Author Type: Occupational Therapist Type: Therapy (PT/OT/Speech/Resp) Filed: 09/26/2024 09:21 Note Text: Summary: OT Missed Visit OCCUPATIONAL THERAPY MISSED VISIT SERVICE DATE: 09/26/2024 SERVICE TIME: 907 ROOM: [place] [address] Patient not seen due to Patient Not Available. Initiated OT session however pt became incontinent of bowel during progression of supine>sit. PCNA and RN notified, deferred further OT at this time. CM notified as this patient has precert needs. Will re-attempt as schedule allows. SIGNATURE: Tania Perdue, OT/L PATIENT NAME: Randolph Hunter DATE: September 26, 2024 TIME: 9:19 AM Normal [facility] CBC panel Auto (Bld)on 09-25 Erythrocyte distribution width (RBC) [Ratio] 13.5 % Normal 11.5-15.0 [facility] Comment on above: Order Comment: Speci men Type: BLOOD SPECIMENOrdering Facility: [facility] Address: [address] [place] [address] Performed By: #### 5 8410-2 ####[facility]ERV[facility] LABORATORYCLIA [id number] [address] OF [place] Hematocrit (Bld) [Volume fraction] 38.8 % Normal 36.0-46.0 [facility] Comment on above: Order Comment: Speci men Type: BLOOD SPECIMENOrdering Facility: [facility] Address: [address] [place] [address] Performed By: #### 5 8410-2 ####CERV[facility] LABORATORYCLIA [id number] [place] [address] [place] Hemoglobin (Bld) [Mass/Vol] 13.1 g/dL Normal 11.5-15.5 [facility] Comment on above: Order Comment: Speci men Type: BLOOD SPECIMENOrdering Facility: [facility] Address: [address] [place] [address] Performed By: #### 5 8410-2 ####CERV[facility] LABORATORYCLIA [id number] [address] [place] MCH (RBC) [Entitic mass] 30.7 pg Normal 26.0-34.0 [facility] Comment on above: Order Comment: Speci men Type: BLOOD SPECIMENOrdering Facility: [facility] Address: [address] [place] [address] Performed By: #### 5 8410-2 ####C[facility] LABORATORYCLIA [id number] [address] MCHC (RBC) [Mass/Vol] 33.8 g/dL Normal 30.5-36.0 [facility] Comment on above: Order Comment: Speci men Type: BLOOD SPECIMENOrdering Facility: [facility] Address: [address] [place] [address] Performed By: #### 5 8410-2 ####CERV[facility]ES LABORATORYCLIA [id number] [address] [place] MCV (RBC) [Entitic vol] 90.9 fL Normal 80.0-100.0 [facility] Comment on above: Order Comment: Speci men Type: BLOOD SPECIMENOrdering Facility: [facility] Address: [address] [place] [address] Performed By: #### 5 8410-2 ####CERV[facility]ES LABORATORYCLIA [id number] [address] Nucleated RBC (Bld) [#/Vol] 10*3/uL Normal <0.01 [facility] Comment on above: Order Comment: Speci men Type: BLOOD SPECIMENOrdering Facility: [facility] Address: [address] [place] [address] Performed By: #### 5 8410-2 ####CERV[facility]ES LABORATORYCLIA [id number] [address] Platelet mean volume (Bld) [Entitic vol] 10.2 fL Normal 9.0-12.7 [facility] Comment on above: Order Comment: Speci men Type: BLOOD SPECIMENOrdering Facility: [facility] Address: [address] [place] [address] Performed By: #### 5 8410-2 ####CERVANTES LABORATORYCLIA [id number] [address] Platelets (Bld) [#/Vol] 200 10*3/uL Normal 150-400 [facility] Comment on above: Order Comment: Speci men Type: BLOOD SPECIMENOrdering Facility: [facility] Address: [address] [place] [address] Performed By: #### 5 8410-2 ####CERV[facility]ES LABORATORYCLIA [id number] [address] [place] RBC (Bld) [#/Vol] 4.27 10*6/uL Normal 3.90-5.20 [facility] Comment on above: Order Comment: Speci men Type: BLOOD SPECIMENOrdering Facility: [facility] Address: [address] [place] [address] Performed By: #### 5 8410-2 ####CERVANTES LABORATORYCLIA [id number] [address] WBC (Bld) [#/Vol] 10.28 10*3/uL Normal 3.70-11.00 [facility] Comment on above: Order Comment: Speci men Type: BLOOD SPECIMENOrdering Facility: [facility] Address: [address] [place] [address] Performed By: #### 5 8410-2 ####CERVANTES LABORATORYCLIA [id number] [address] Comprehensive metabolic 2000 panelon 09-25-2024 Albumin [Mass/Vol] 3.0 g/dL Low 3.9-4.9 [facility] Comment on above: Order Comment: Speci men Type: BLOOD SPECIMENOrdering Facility: [facility] Address: [address] [place] [address] Performed By: #### 1 9123-9, 76049-9 ####CERV[facility]ES LABORATORYCLIA [id number] [address] ALP [Catalytic activity/Vol] 41 U/L Normal 34-123 [facility] Comment on above: Order Comment: Speci men Type: BLOOD SPECIMENOrdering Facility: [facility] Address: [address] [place] [address] Performed By: #### 1 9123-9, 93270-5 ####CERV[facility] LABORATORYCLIA [id number] [address] ALT [Catalytic activity/Vol] 11 U/L Normal 7-38 [facility] Comment on above: Order Comment: Speci men Type: BLOOD SPECIMENOrdering Facility: [facility] Address: [address] [place], [place] [address] [address] Performed By: #### 1 23-9, 45788-2 ####CERVANTES LABORATORYCLIA [id number] [place] [address] [place] Anion gap [Moles/Vol] 11 mmol/L Normal 8-15 [facility] Comment on above: Order Comment: Speci men Type: BLOOD SPECIMENOrdering Facility: [facility] Address: [address] [place] [address] Performed By: #### 1 23-9, 34260-0 ####CERVANTES LABORATORYCLIA [id number] [place] [address] [place] AST [Catalytic activity/Vol] 21 U/L Normal 13-35 [facility] Comment on above: Order Comment: Speci men Type: BLOOD SPECIMENOrdering Facility: [facility] Address: [address] [place] [address] [place] [address] Performed By: #### 1 23-9, 25146-1 ####CERV[facility]ES LABORATORYCLIA [id number] [place] [address] [place] Bilirubin [Mass/Vol] 0.3 mg/dL Normal 0.2-1.3 [facility] Comment on above: Order Comment: Speci men Type: BLOOD SPECIMENOrdering Facility: [facility] Address: [facility] [place] [place] [address] Performed By: #### 1 23-9, 44114-1 ####CERV[facility] LABORATORYCLIA [id number] [place] [address] [place] Calcium [Mass/Vol] 9.0 mg/dL Normal 8.5-10.2 [facility] Comment on above: Order Comment: Speci men Type: BLOOD SPECIMENOrdering Facility: [facility] Address: [address] [place] [address] [place] [address] Performed By: #### 1 23-9, 68117-1 ####CERVANTES LABORATORYCLIA [id number] [place] [id number] [place] Chloride [Moles/Vol] 99 mmol/L Normal 98-107 [facility] Comment on above: Order Comment: Speci men Type: BLOOD SPECIMENOrdering Facility: [facility] Address: [address] [place] [address] Performed By: #### 1 9, ####CERV[facility]ES LABORATORYCLIA [id number] [place] [address] [place] CO2 [Moles/Vol] 24 mmol/L Normal 22-30 [facility] Comment on above: Order Comment: Speci men Type: BLOOD SPECIMENOrdering Facility: [facility] Address: [address] [place] [address] Performed By: #### 1 9, ####CERV[facility] LABORATORYCLIA [id number] [place] [address] [place] Creatinine [Mass/Vol] 0.66 mg/dL Normal 0.58-0.96 [facility] Comment on above: Order Comment: Speci men Type: BLOOD SPECIMENOrdering Facility: [facility] Address: [address] [place] [address] Performed By: #### 1 9, ####CERV[facility]ES LABORATORYCLIA [id number] [place] [address] [place] Creatinine and Glomerular filtration rate.predicted panel (S/P/Bld) 93 mL/min/1.73m??? Normal >=60 [facility] Comment on above: Order Comment: Speci men Type: BLOOD SPECIMENOrdering Facility: [facility] Address: [address] [place] [address] Result Comment: Winifred mated Glomerular Filtration Rate [...] Performed By: #### 1 23-9, ####CERVANTES LABORATORYCLIA [id number] [place] [id number] [place] Glucose [Mass/Vol] 202 mg/dL High 74-99 [facility] Comment on above: Order Comment: Suzanne garcia Type: BLOOD SPECIMENOrdering Facility: [facility] Address: [address] [id number] Result Comment: The [place] Diabetes Association (ADA) provides guidance for cutoff [...] Standards of Medical Care in Diabetes 2016, [place] [employer] Association. Diabetes Care. 2016.39(Suppl 1). Performed By: #### 1 9123-9, 07643-2 ####CERV[facility]ES LABORATORYCLIA [id number] [place] [address] [place] Potassium [Moles/Vol] 4.4 mmol/L Normal 3.7-5.1 [facility] Comment on above: Order Comment: Suzanne garcia Type: BLOOD SPECIMENOrdering Facility: [facility] Address: [address] [place], [place] [address] Performed By: #### 1 9123-9, 92933-8 ####CERVANTES LABORATORYCLIA [id number] [place] [address] [place] Protein [Mass/Vol] 6.0 g/dL Low 6.3-8.0 [facility] Comment on above: Order Comment: Suzanne men Type: BLOOD SPECIMENOrdering Facility: [facility] Address: [address] [place] [id number] Performed By: #### 1 9123-9, 66084-3 ####CERVANT[facility] LABORATORYCLIA [id number] [place] [address] [place] Sodium [Moles/Vol] 134 mmol/L Low 136-144 [facility] Comment on above: Order Comment: Suzanne men Type: BLOOD SPECIMENOrdering Facility: [facility] Address: [address] [place], [place] [address] Performed By: #### 1 9123-9, 82725-7 ####BL[facility] LABORATORYCLIA [id number] [place] [id number] [place] Urea nitrogen [Mass/Vol] 14 mg/dL Normal - [facility] Comment on above: Order Comment: Suzanne garcia Type: BLOOD SPECIMENOrdering Facility: [facility] Address: [address] [place] [address] Performed By: #### 1 9123-9, 96291-8 ####[facility] HA[facility] LABORATORYCLIA [id number] [place] [id number] [place] Magnesium SerPl-mCncon 09-25 Magnesium [Mass/Vol] 1.5 mg/dL Low 1.7-2.3 [facility] Comment on above: Order Comment: Suzanne garcia Type: BLOOD SPECIMENOrdering Facility: [facility] Address: [address] [place] [address] [place] [address] Performed By: #### 1 9123-9, 56282-2 ####BL[facility] HA[facility] LABORATORYCLIA [id number] [place] [address] [place] PT panel Coag (PPP)on 2024 INR Coag (PPP) [Relative time] 4.2 {INR} High 0.9-1.3 [facility] Comment on above: Order Comment: Suzanne garcia Type: BLOOD SPECIMENOrdering Facility: [facility] Address: [address] [place] [address] Result Comment: Kaycee min K Antagonist (VKA) Therapeutic Range: INR 2 to 3 (Target INR of 2.5) Note: For patients treated with VKA drugs, such as warfarin, the [place] [employer] 2012 Guideline recommends [...] 2.5 to 3.5 (target INR of 3). Anmoltt GH, et al. Chest 2012, 141:7S-47S Roshni RA, et al. [facility] 2017, 70: 252-289 Performed By: #### 3 4528-0 ####CERVANTES LABORATORYCLIA [id number] [place] [address] [place] PT Coag (PPP) [Time] 41.3 s High 9.7-13.0 [facility] Comment on above: Order Comment: Suzanne garcia Type: BLOOD SPECIMENOrdering Facility: [facility] Address: [address] [place] [address] Performed By: #### 3 4528-0 ####BL[facility] HAWK LABORATORYCLIA [id number] [place] [id number] [facility] CONSULT PROGon 09-23-2024 CONSULT PROG HNO ID: [id number] Author: PIPE FREEMAN RPh Service: Pharmacy Author [...] Freeman RPh DATE/TIME: 09/23/2024 12:07 PM Normal [facility] PT panel Coag (PPP)on 2024 INR Coag (PPP) [Relative time] 2.9 {INR} High 0.9-1.3 [facility] Comment on above: Order Comment: Suzanne garcia Type: BLOOD SPECIMENOrdering Facility: [facility] Address: [address] [place] [address] Result Comment: Kaycee min K Antagonist (VKA) Therapeutic Range: INR 2 to 3 (Target INR of 2.5) Note: For patients treated with VKA drugs, such as warfarin, the [place] [employer]icians 2012 Guideline recommends [...] Chest 2012, 141:7S-47S Roshni RA, et al. [facility] 2017, 70: 252-289 Performed By: #### 3 4528-0 ####CERVANTES LABORATORYCLIA [id number] [place] [address] [place] PT Coag (PPP) [Time] 29.1 s High 9.7-13.0 [facility] Comment on above: Order Comment: Suzanne garcia Type: BLOOD SPECIMENOrdering Facility: [facility] Address: [address] [place] [address] Performed By: #### 3 4528-0 ####CERVANTES LABORATORYCLIA [id number] [address] OF [facility] PT panel Coag (PPP)on 2024 INR Coag (PPP) [Relative time] 2.8 {INR} High 0.9-1.3 [facility] Comment on above: Order Comment: Suzanne garcia Type: BLOOD SPECIMENOrdering Facility: [facility] Address: [address] [place] [address] Result Comment: Kaycee min K Antagonist (VKA) Therapeutic Range: INR 2 to 3 (Target INR of 2.5) Note: For patients treated with VKA drugs, such as warfarin, the [place] [employer]icians 2012 Guideline recommends [...] Chest 2012, 141:7S-47S Roshni RA, et al. [facility] 2017, 70: 252-289 Performed By: #### 3 4528-0 ####BL[facility] HA[facility] LABORATORYCLIA [id number] [place] [id number] [facility] PT Coag (PPP) [Time] 27.8 s High 9.7-13.0 [facility] Comment on above: Order Comment: Speci men Type: BLOOD SPECIMENOrdering Facility: [facility] Address: [address] [place] [address] Performed By: #### 3 4528-0 ####[facility] CENTERCLIA [id number] [place] [id number] [facility] THERAPY NTon 09-22-2024 THERAPY NT HNO ID: [id number] Author: ESTELLE CAGE PT Service: Physical Therapy Author Type: Manager Intern Type: Therapy (PT/OT/Speech/Resp) Filed: 09/22/2024 17:13 Note Text: Attestation signed by Estelle Cage PT at 09/22/2024 5:13 PM I reviewed and agree with the documentation corresponding to this therapy visit. SIGNATURE: Estelle Cage PT DATE: September 22, 2024 TIME: 5:13 PM Summary: PT Treat Physical Therapy Treatment Summary SERVICE DATE: 09/22/2024 SERVICE TIME: 1408 to 1439 ROOM: [place] [address] PT 6 Clicks Score: 12 DISCHARGE RECOMMENDATIONS [...] is struggling to ambulate. Patient admitted to [facility] with Dx: Decreased activities of daily living (ADL), Fall at home, initial encounter Relevant Past Medical History: DM, edema, depression,asthma, obesity, irsutism, venous insufficiency, oseteomyeliitis of foot, SLE, cerebral palsy, pulmonary embolism, hypothyroidism, insomnai, CAD, migraines, HTN, hysterectomy HOME LIVING Patient Lives With: Facility Care, Spouse, Other: See Comment Comments: [place] with spouse Assistance Available: 24-Hour Comments: [facility] staff for toileting and shower Entry To Home: No Stairs Number Of Stairs To Bed/Bath: 0 Tub/Shower Type: Accessible WIS with shower chair + grab bars, has assistance/supervision for transfers Laundry: [facility] staff completes Equipment Owned: Lift Chair, Commode- [...] DIAGNOSIS Reduced mobility-other TREATMENT INTERVENTIONS Therapeutic Activity (82162) Timed Code Treatment (minutes): 31 Skilled Treatment Time (minutes): 31 Therapeutic Activity (34163) Treatment Minutes: 31 $ Therapeutic Activity (51599) Billed Units: 2 units TRAINING AND EDUCATION [...] Sit: Modified In (more content not included)... Normal [facility] THERAPY NT HNO ID: [id number] Author: CHRISTIANO MAYEN OT/Abiodun Service: ? Author Type: Occupational Therapist Type: Therapy (PT/OT/Speech/Resp) Filed: 09/22/2024 09:46 Note Text: Summary: OT Treatment Occupational Therapy Treatment Summary SERVICE DATE: 09/22/2024 SERVICE TIME: 857 to 939 ROOM: QG-[id number] OT 6 Clicks Score: 14 DISCHARGE RECOMMENDATIONS [...] is struggling to ambulate. Patient admitted to [facility] with Dx: Decreased activities of daily living (ADL), Fall at home, initial encounter Relevant Past Medical History: DM, edema, depression,asthma, obesity, irsutism, venous insufficiency, oseteomyeliitis of foot, SLE, cerebral palsy, pulmonary embolism, hypothyroidism, insomnai, CAD, migraines, HTN, hysterectomy HOME LIVING Patient Lives With: Facility Care, Spouse, Other: See Comment Comments: [place] with spouse Assistance Available: 24-Hour Comments: [facility] staff for toileting and shower Entry To Home: No Stairs Number Of Stairs To Bed/Bath: 0 Tub/Shower Type: Accessible WIS with shower chair + grab bars, has assistance/supervision for transfers Laundry: [facility] staff completes Equipment Owned: Lift Chair, Commode- [...] (generalized), Unsteadiness on feet TREATMENT INTERVENTIONS Self Shelter Management (10241), Therapeutic Activity (97336) Timed Code Treatment (minutes): 40 Skilled Treatment Time (minutes): 40 TRAINING AND EDUCATION PROVIDED Activity Adaptation/Compensatory Strategies, Adaptive Equipment/DME, Bed Mobility, Benefits of In-Hospital Mobility, Cognitive Skills, Command Following, Discharge Planning, Expected Functional Level, Functional Mobility Involving ADLs, Grooming Tasks, Fine Motor Coordination, Insight into Deficits, Lower Extremity Dressing, Feeding Tasks, Memory/Attention, Orientation, Positioning, Role of Occupational Therapy, Safety/Judgment, Sitting Balance to Improve [place] with ADLs/Self-Care, Standing Balance to Improve [place] with ADLs/Self-Care, Transfer - Sit to Stand, Upper Extremity Bathing THERAPEUTIC SKILLS USED Activity Dosing, Cues for Sequencing/Proper Technique for Activity, Cuing Tactile, Cuing Verbal, Cuing Visual, Facilitation of Joint Range of Motion, Movement Facilitation, Muscle Activation Facilitation, Physical Assist, Task Analysis Learning, Teach-Back fo (more content not included)... Normal [facility] CBC panel Auto (Bld)on 09-21 Erythrocyte distribution width (RBC) [Ratio] 13.2 % Normal 11.5-15.0 [facility] Comment on above: Order Comment: Speci men Type: BLOOD SPECIMENOrdering Facility: [facility] Address: [address] [place] [address] Performed By: #### 5 8410-2 ####[facility] LABORATORYCLIA [id number] [address] [place] Hematocrit (Bld) [Volume fraction] 33.6 % Low 36.0-46.0 [facility] Comment on above: Order Comment: Speci men Type: BLOOD SPECIMENOrdering Facility: [facility] Address: [address] [place] [address] Performed By: #### 5 8410-2 ####[facility] LABORATORYCLIA [id number] [place] [address] [place] Hemoglobin (Bld) [Mass/Vol] 11.4 g/dL Low 11.5-15.5 [facility] Comment on above: Order Comment: Speci men Type: BLOOD SPECIMENOrdering Facility: [facility] Address: [address] [place] [address] Performed By: #### 5 8410-2 ####[facility] LABORATORYCLIA [id number] [address] [place] MCH (RBC) [Entitic mass] 30.8 pg Normal 26.0-34.0 [facility] Comment on above: Order Comment: Speci men Type: BLOOD SPECIMENOrdering Facility: [facility] Address: [address] [place] [address] Performed By: #### 5 8410-2 ####[facility] LABORATORYCLIA [id number] [address] MCHC (RBC) [Mass/Vol] 33.9 g/dL Normal 30.5-36.0 [facility] Comment on above: Order Comment: Speci men Type: BLOOD SPECIMENOrdering Facility: [facility] Address: [address] [place] [address] Performed By: #### 5 8410-2 ####[facility] LABORATORYCLIA [id number] [address] [place] MCV (RBC) [Entitic vol] 90.8 fL Normal 80.0-100.0 [facility] Comment on above: Order Comment: Speci men Type: BLOOD SPECIMENOrdering Facility: [facility] Address: [address] [place] [address] Performed By: #### 5 8410-2 ####[facility] LABORATORYCLIA [id number] [address] Nucleated RBC (Bld) [#/Vol] 10*3/uL Normal <0.01 [facility] Comment on above: Order Comment: Speci men Type: BLOOD SPECIMENOrdering Facility: [facility] Address: [address] [place] [address] Performed By: #### 5 8410-2 ####[facility] LABORATORYCLIA [id number] [address] [place] Platelet mean volume (Bld) [Entitic vol] 10.2 fL Normal 9.0-12.7 [facility] Comment on above: Order Comment: Speci men Type: BLOOD SPECIMENOrdering Facility: [facility] Address: [address] [place] [address] Performed By: #### 5 8410-2 ####[facility] LABORATORYCLIA [id number] [address] Platelets (Bld) [#/Vol] 177 10*3/uL Normal 150-400 [facility] Comment on above: Order Comment: Speci men Type: BLOOD SPECIMENOrdering Facility: [facility] Address: [address] [place] [address] Performed By: #### 5 8410-2 ####[facility] LABORATORYCLIA [id number] [address] RBC (Bld) [#/Vol] 3.70 10*6/uL Low 3.90-5.20 [facility] Comment on above: Order Comment: Speci men Type: BLOOD SPECIMENOrdering Facility: [facility] Address: [address] [place] [address] Performed By: #### 5 8410-2 ####[facility] LABORATORYCLIA [id number] [address] WBC (Bld) [#/Vol] 5.94 10*3/uL Normal 3.70-11.00 [facility] Comment on above: Order Comment: Speci men Type: BLOOD SPECIMENOrdering Facility: [facility] Address: [address] [place] [address] Performed By: #### 5 8410-2 ####[facility] LABORATORYCLIA [id number] [address] Comprehensive metabolic 2000 panelon 09-21-2024 Albumin [Mass/Vol] 2.8 g/dL Low 3.9-4.9 [facility] Comment on above: Order Comment: Speci men Type: BLOOD SPECIMENOrdering Facility: [facility] Address: [address] [place] [address] Performed By: #### 1 9123-9, 12010-5 ####[facility] LABORATORYCLIA [id number] [address] ALP [Catalytic activity/Vol] 33 U/L Low 34-123 [facility] Comment on above: Order Comment: Speci men Type: BLOOD SPECIMENOrdering Facility: [facility] Address: [address] [place] [address] Performed By: #### 1 9123-9, 29293-6 ####[facility] LABORATORYCLIA [id number] [address] ALT [Catalytic activity/Vol] 7 U/L Normal 7-38 [facility] Comment on above: Order Comment: Speci men Type: BLOOD SPECIMENOrdering Facility: [facility] Address: [address] [place] [address] Performed By: #### 1 23-9, 59027-4 ####CERV[facility] LABORATORYCLIA [id number] [place] [address] [place] Anion gap [Moles/Vol] 8 mmol/L Normal 8-15 [facility] Comment on above: Order Comment: Speci men Type: BLOOD SPECIMENOrdering Facility: [facility] Address: [address] [place] [address] Performed By: #### 1 9, ####C[facility] LABORATORYCLIA [id number] [place] [address] [place] AST [Catalytic activity/Vol] 18 U/L Normal 13-35 [facility] Comment on above: Order Comment: Speci men Type: BLOOD SPECIMENOrdering Facility: [facility] Address: [address] [place] [address] Performed By: #### 1 239, 15443-6 ####[facility] LABORATORYCLIA [id number] [place] [address] [place] Bilirubin [Mass/Vol] 0.2 mg/dL Normal 0.2-1.3 [facility] Comment on above: Order Comment: Speci men Type: BLOOD SPECIMENOrdering Facility: [facility] Address: [address] [place] [address] Performed By: #### 1 23-9, 88381-1 ####[facility] LABORATORYCLIA [id number] [place] [address] [place] Calcium [Mass/Vol] 8.4 mg/dL Low 8.5-10.2 [facility] Comment on above: Order Comment: Speci men Type: BLOOD SPECIMENOrdering Facility: [facility] Address: [address] [place] [address] Performed By: #### 1 23-9, 07743-7 ####[facility] LABORATORYCLIA [id number] [address] [place] [facility] Chloride [Moles/Vol] 103 mmol/L Normal 98-107 [facility] Comment on above: Order Comment: Suzanne men Type: BLOOD SPECIMENOrdering Facility: [facility] Address: [address] [place] [address] Performed By: #### 1 9123-9, ####[facility] LABORATORYCLIA [id number] [place] [address] [place] CO2 [Moles/Vol] 27 mmol/L Normal 22-30 [facility] Comment on above: Order Comment: Naeemi men Type: BLOOD SPECIMENOrdering Facility: [facility] Address: [address] [place] [address] Performed By: #### 1 23-9, ####[facility] LABORATORYCLIA [id number] [address] [place] Creatinine [Mass/Vol] 0.79 mg/dL Normal 0.58-0.96 [facility] Comment on above: Order Comment: Speci men Type: BLOOD SPECIMENOrdering Facility: [facility] Address: [address] [place] [address] Performed By: #### 1 23-9, ####[facility] LABORATORYCLIA [id number] [address] Creatinine and Glomerular filtration rate.predicted panel (S/P/Bld) 79 mL/min/1.73m??? Normal >=60 [facility] Comment on above: Order Comment: Speci men Type: BLOOD SPECIMENOrdering Facility: [facility] Address: [address] [place] [address] Result Comment: Winifred mated Glomerular Filtration Rate [...] actual GFR. Performed By: #### 1 23-9, 73985-5 ####[facility] LABORATORYCLIA [id number] [place] [address] [place] Glucose [Mass/Vol] 115 mg/dL High 74-99 [facility] Comment on above: Order Comment: Suzanne garcia Type: BLOOD SPECIMENOrdering Facility: [facility] Address: [address] [place] [address] Result Comment: The [place] [employer] (ADA) provides guidance for cutoff [...] Standards of Medical Care in Diabetes 2016, [place] [employer]. Diabetes Care. 2016.39(Suppl 1). Performed By: #### 1 9123-9, ####[facility] LABORATORYCLIA [id number] [place] [address] [place] Potassium [Moles/Vol] 4.8 mmol/L Normal 3.7-5.1 [facility] Comment on above: Order Comment: Suzanne garcia Type: BLOOD SPECIMENOrdering Facility: [facility] Address: [address] [place] [address] Performed By: #### 1 9123-9, ####[facility] LABORATORYCLIA [id number] [place] [address] [place] Protein [Mass/Vol] 5.6 g/dL Low 6.3-8.0 [facility] Comment on above: Order Comment: Suzanne garcia Type: BLOOD SPECIMENOrdering Facility: [facility] Address: [address] [place] [address] Performed By: #### 1 9123-9, ####[facility] LABORATORYCLIA [id number] [place] [address] [place] Sodium [Moles/Vol] 138 mmol/L Normal 136-144 [facility] Comment on above: Order Comment: Suzanne garcia Type: BLOOD SPECIMENOrdering Facility: [facility] Address: [address] [place] [address] Performed By: #### 1 9123-9, 86994-5 ####[facility] LABORATORYCLIA [id number] [address] STATES OF [facility] Urea nitrogen [Mass/Vol] 16 mg/dL Normal 7-21 [facility] Comment on above: Order Comment: Suzanne garcia Type: BLOOD SPECIMENOrdering Facility: [facility] Address: [address] [place] [address] Performed By: #### 1 9123-9, 21230-7 ####[facility] LABORATORYCLIA [id number] [address] [place] Magnesium SerPl-mCncon 09-21 Magnesium [Mass/Vol] 1.9 mg/dL Normal 1.7-2.3 [facility] Comment on above: Order Comment: Suzanne garcia Type: BLOOD SPECIMENOrdering Facility: [facility] Address: [address] [place] [address] Performed By: #### 1 9123-9, 66608-0 ####[facility] LABORATORYCLIA [id number] [address] [place] PT panel Coag (PPP)on 2024 INR Coag (PPP) [Relative time] 2.5 {INR} High 0.9-1.3 [facility] Comment on above: Order Comment: Suzanne garcia Type: BLOOD SPECIMENOrdering Facility: [facility] Address: [address] [place] [address] Result Comment: Kaycee min K Antagonist (VKA) Therapeutic Range: INR 2 to 3 (Target INR of 2.5) Note: For patients treated with VKA drugs, such as warfarin, the [place] [employer] 2012 Guideline recommends [...] Chest 2012, 141:7S-47S Roshni CASTILLO et al. [facility] 2017, 70: 252-289 Performed By: #### 3 4528-0 ####[facility] LABORATORYCLIA [id number] [place] [address] [place] PT Coag (PPP) [Time] 25.1 s High 9.7-13.0 [facility] Comment on above: Order Comment: Suzanne garcia Type: BLOOD SPECIMENOrdering Facility: [facility] Address: [address] [place] [address] Performed By: #### 3 4528-0 ####[facility] LABORATORYCLIA [id number] [address] [place] CBC panel Auto (Bld)on 09-20 Erythrocyte distribution width (RBC) [Ratio] 13.2 % Normal 11.5-15.0 [facility] Comment on above: Order Comment: Suzanne garcia Type: BLOOD SPECIMENOrdering Facility: [facility] Address: [address] [place] [address] Performed By: #### 5 8410-2 ####[facility] LABORATORYCLIA [id number] [address] Hematocrit (Bld) [Volume fraction] 36.8 % Normal 36.0-46.0 [facility] Comment on above: Order Comment: Suzanne garcia Type: BLOOD SPECIMENOrdering Facility: [facility] Address: [address] [place] [address] Performed By: #### 5 8410-2 ####[facility] LABORATORYCLIA [id number] [address] [place] Hemoglobin (Bld) [Mass/Vol] 12.4 g/dL Normal 11.5-15.5 [facility] Comment on above: Order Comment: Suzanne men Type: BLOOD SPECIMENOrdering Facility: [facility] Address: [address] [place] [address] Performed By: #### 5 8410-2 ####[facility] LABORATORYCLIA [id number] [address] MCH (RBC) [Entitic mass] 30.8 pg Normal 26.0-34.0 [facility] Comment on above: Order Comment: Speci men Type: BLOOD SPECIMENOrdering Facility: [facility] Address: [address] [place] [address] Performed By: #### 5 8410-2 ####[facility] LABORATORYCLIA [id number] [address] MCHC (RBC) [Mass/Vol] 33.7 g/dL Normal 30.5-36.0 [facility] Comment on above: Order Comment: Speci men Type: BLOOD SPECIMENOrdering Facility: [facility] Address: [address] [place] [address] Performed By: #### 5 8410-2 ####[facility] LABORATORYCLIA [id number] [address] MCV (RBC) [Entitic vol] 91.5 fL Normal 80.0-100.0 [facility] Comment on above: Order Comment: Speci men Type: BLOOD SPECIMENOrdering Facility: [facility] Address: [address] [place] [address] Performed By: #### 5 8410-2 ####[facility] LABORATORYCLIA [id number] [address] Nucleated RBC (Bld) [#/Vol] 10*3/uL Normal <0.01 [facility] Comment on above: Order Comment: Speci men Type: BLOOD SPECIMENOrdering Facility: [facility] Address: [address] [place] [address] Performed By: #### 5 8410-2 ####[facility] LABORATORYCLIA [id number] [address] Platelet mean volume (Bld) [Entitic vol] 10.2 fL Normal 9.0-12.7 [facility] Comment on above: Order Comment: Speci men Type: BLOOD SPECIMENOrdering Facility: [facility] Address: [address] [place] [address] Performed By: #### 5 8410-2 ####[facility] LABORATORYCLIA [id number] [address] [place] Platelets (Bld) [#/Vol] 175 10*3/uL Normal 150-400 [facility] Comment on above: Order Comment: Speci men Type: BLOOD SPECIMENOrdering Facility: [facility] Address: [address] [place] [address] Performed By: #### 5 8410-2 ####[facility] LABORATORYCLIA [id number] [address] [place] RBC (Bld) [#/Vol] 4.02 10*6/uL Normal 3.90-5.20 [facility] Comment on above: Order Comment: Speci men Type: BLOOD SPECIMENOrdering Facility: [facility] Address: [address] [place] [address] Performed By: #### 5 8410-2 ####[facility] LABORATORYCLIA [id number] [address] [place] WBC (Bld) [#/Vol] 5.70 10*3/uL Normal 3.70-11.00 [facility] Comment on above: Order Comment: Speci men Type: BLOOD SPECIMENOrdering Facility: [facility] Address: [address] [place] [address] Performed By: #### 5 8410-2 ####[facility] LABORATORYCLIA [id number] [address] Comprehensive metabolic 2000 panelon 09-20-2024 Albumin [Mass/Vol] 3.1 g/dL Low 3.9-4.9 [facility] Comment on above: Order Comment: Speci men Type: BLOOD SPECIMENOrdering Facility: [facility] Address: [address] [place] [address] Performed By: #### 2 4323-8, 02879-0 ####[facility] LABORATORYCLIA [id number] [place] [address] [place] ALP [Catalytic activity/Vol] 41 U/L Normal 34-123 [facility] Comment on above: Order Comment: Speci men Type: BLOOD SPECIMENOrdering Facility: [facility] Address: [address] [place] [address] Performed By: #### 2 432-8, ####[facility] LABORATORYCLIA [id number] [place] [address] [place] ALT [Catalytic activity/Vol] 7 U/L Normal 7-38 [facility] Comment on above: Order Comment: Speci men Type: BLOOD SPECIMENOrdering Facility: [facility] Address: [address] [place] [address] Performed By: #### 2 8, ####C[facility] LABORATORYCLIA [id number] [place] [address] [place] Anion gap [Moles/Vol] 7 mmol/L Low 8-15 [facility] Comment on above: Order Comment: Speci men Type: BLOOD SPECIMENOrdering Facility: [facility] Address: [address] [place] [address] Performed By: #### 2 8, ####[facility] LABORATORYCLIA [id number] [address] [place] AST [Catalytic activity/Vol] 16 U/L Normal 13-35 [facility] Comment on above: Order Comment: Speci men Type: BLOOD SPECIMENOrdering Facility: [facility] Address: [address] [place] [address] Performed By: #### 2 4328, ####[facility] LABORATORYCLIA [id number] [place] [address] [place] Bilirubin [Mass/Vol] 0.4 mg/dL Normal 0.2-1.3 [facility] Comment on above: Order Comment: Speci men Type: BLOOD SPECIMENOrdering Facility: [facility] Address: [address] [place] [address] Performed By: #### 2 8, ####[facility] LABORATORYCLIA [id number] [place] [address] [place] Calcium [Mass/Vol] 8.9 mg/dL Normal 8.5-10.2 [facility] Comment on above: Order Comment: Speci men Type: BLOOD SPECIMENOrdering Facility: [facility] Address: [address] [place] [address] Performed By: #### 2 4323-8, ####[facility] LABORATORYCLIA [id number] [place] [address] [place] Chloride [Moles/Vol] 102 mmol/L Normal 98-107 [facility] Comment on above: Order Comment: Speci men Type: BLOOD SPECIMENOrdering Facility: [facility] Address: [address] [place] [address] Performed By: #### 2 4323-8, ####[facility] LABORATORYCLIA [id number] [address] [place] CO2 [Moles/Vol] 29 mmol/L Normal 22-30 [facility] Comment on above: Order Comment: Speci men Type: BLOOD SPECIMENOrdering Facility: [facility] Address: [address] [place] [address] Performed By: #### 2 4323-8, ####[facility] LABORATORYCLIA [id number] [address] [place] Creatinine [Mass/Vol] 0.82 mg/dL Normal 0.58-0.96 [facility] Comment on above: Order Comment: Speci men Type: BLOOD SPECIMENOrdering Facility: [facility] Address: [address] [place] [address] Performed By: #### 2 4323-8, ####[facility] LABORATORYCLIA [id number] [address] Creatinine and Glomerular filtration rate.predicted panel (S/P/Bld) 76 mL/min/1.73m??? Normal >=60 [facility] Comment on above: Order Comment: Speci men Type: BLOOD SPECIMENOrdering Facility: [facility] Address: [address] [place] [address] Result Comment: Winifred mated Glomerular Filtration Rate [...] reflect actual GFR. Performed By: #### 2 432-8, ####[facility] LABORATORYCLIA [id number] [place] [address] [place] Glucose [Mass/Vol] 134 mg/dL High 74-99 [facility] Comment on above: Order Comment: Suzanne garcia Type: BLOOD SPECIMENOrdering Facility: [facility] Address: [address] [place] [address] Result Comment: The [place] [employer] (ADA) provides guidance for cutoff [...] Standards of Medical Care in Diabetes 2016, [place] [employer]. Diabetes Care. 2016.39(Suppl 1). Performed By: #### 2 43208-27, ####[facility] LABORATORYCLIA [id number] [place] [address] [place] Potassium [Moles/Vol] 4.7 mmol/L Normal 3.7-5.1 [facility] Comment on above: Order Comment: Suzanne garcia Type: BLOOD SPECIMENOrdering Facility: [facility] Address: [address] [id number] Performed By: #### 2 4323-8, ####[facility] LABORATORYCLIA [id number] [place] [address] [place] Protein [Mass/Vol] 5.9 g/dL Low 6.3-8.0 [facility] Comment on above: Order Comment: Speci men Type: BLOOD SPECIMENOrdering Facility: [facility] Address: [address] [place] [address] Performed By: #### 2 4323-8, ####[facility] LABORATORYCLIA [id number] [place] [address] [place] Sodium [Moles/Vol] 138 mmol/L Normal 136-144 [facility] Comment on above: Order Comment: Speci men Type: BLOOD SPECIMENOrdering Facility: [facility] Address: [address] [place] [address] Performed By: #### 2 4323-8, ####[facility] LABORATORYCLIA [id number] [address] STATES [facility] Urea nitrogen [Mass/Vol] 11 mg/dL Normal 7-21 [facility] Comment on above: Order Comment: Speci men Type: BLOOD SPECIMENOrdering Facility: [facility] Address: [address] [place] [address] Performed By: #### 2 4323-8, ####CERV[facility] LABORATORYCLIA [id number] [place] [address] [place] Magnesium SerPl-mCncon 09-20 Magnesium [Mass/Vol] 1.9 mg/dL Normal 1.7-2.3 [facility] Comment on above: Order Comment: Speci men Type: BLOOD SPECIMENOrdering Facility: [facility] Address: [address] [place] [address] Performed By: #### 2 4323-8, ####CERV[facility]ES LABORATORYCLIA [id number] [place] [address] [place] PT panel Coag (PPP)on 2024 INR Coag (PPP) [Relative time] 1.6 {INR} High 0.9-1.3 [facility] Comment on above: Order Comment: Speci men Type: BLOOD SPECIMENOrdering Facility: [facility] Address: [address] [place] [address] Result Comment: Kaycee min K Antagonist (VKA) Therapeutic Range: INR 2 to 3 (Target INR of 2.5) Note: For patients treated with VKA drugs, such as warfarin, the [place] [employer] 2012 Guideline recommends [...] Chest 2012, 141:7S-47S Roshni RA, et al. [facility] 2017, 70: 252-289 Performed By: #### 3 4528-0 ####[facility] LABORATORYCLIA [id number] [place] [address] [place] PT Coag (PPP) [Time] 16.7 s High 9.7-13.0 [facility] Comment on above: Order Comment: Speci men Type: BLOOD SPECIMENOrdering Facility: [facility] Address: [address] [place] [address] Performed By: #### 3 4528-0 ####[facility] LABORATORYCLIA [id number] [place] [id number] [place] THERAPY NTon 09-20-2024 THERAPY NT HNO ID: [id number] Author: CHRISTIANO MAYEN OT/Abiodun Service: ? Author Type: Occupational Therapist Type: Therapy (PT/OT/Speech/Resp) Filed: 09/20/2024 11:14 Note Text: Summary: OT Evaluation Occupational Therapy Evaluation Summary SERVICE DATE: 09/20/2024 SERVICE TIME: 1031 to 1106 ROOM: JU-6I-1391- OT 6 Clicks Score: 14 DISCHARGE RECOMMENDATIONS [...] is struggling to ambulate. Patient admitted to [facility] with Dx: Decreased activities of daily living (ADL), Fall at home, initial encounter Relevant Past Medical History: DM, edema, depression,asthma, obesity, irsutism, venous insufficiency, oseteomyeliitis of foot, SLE, cerebral palsy, pulmonary embolism, hypothyroidism, insomnai, CAD, migraines, HTN, hysterectomy HOME LIVING Patient Lives With: Facility Care, Spouse, Other: See Comment Comments: [facility] with spouse Assistance Available: 24-Hour Comments: [facility] staff for toileting and shower Entry To Home: No Stairs Number Of Stairs To Bed/Bath: 0 Tub/Shower Type: Accessible WIS with shower chair + grab bars, has assistance/supervision for transfers Laundry: [facility] staff completes Equipment Owned: Lift Chair, Commode- [...] Unsteadiness on feet TREATMENT INTERVENTIONS Evaluation, Self Shelter Management (01409) Timed Code Treatment (minutes): 17 Skilled Treatment Time (minutes): 32 TRAINING AND EDUCATION PROVIDED Activity Adaptation/Compensatory Strategies, Adaptive Equipment/DME, Bed Mobility, Benefits of In-Hospital Mobility, Cognitive Skills, Command Following, Coping Skills/Resiliency, Discharge Planning, Expected Functional Level, Functional Mobility Involving ADLs, Insight into Deficits, Lower Extremity Dressing, Memory/Attention, Orientation, Positioning, Pain Management, Safety/Judgment, Role of Occupational Therapy, Sitting Balance to Improve [place] with ADLs/Self-Care, Standing Balance to Improve [place] with ADLs/Self-Care, Toileting , Transfer - Sit to Stand THERAPEUTIC SKILLS USED Activity Dosing, Cues for Sequencing/Proper Technique for Activity, Cuing Tactile, Cuing Verbal, Cuing Visual, Facilitation of Joint Range of Motion, Movement Facilitation, Muscle Activation Facilitation, Physical Assist, Teach-Back for Ed (more content not included)... Normal [facility] CBC panel Auto (Bld)on 09-19 Erythrocyte distribution width (RBC) [Ratio] 13.2 % Normal 11.5-15.0 [facility] Comment on above: Order Comment: Speci men Type: BLOOD SPECIMENOrdering Facility: [facility] Address: [address] [place] [address] Performed By: #### 5 8410-2 ####CERV[facility]ES LABORATORYCLIA [id number] [address] Hematocrit (Bld) [Volume fraction] 33.3 % Low 36.0-46.0 [facility] Comment on above: Order Comment: Speci men Type: BLOOD SPECIMENOrdering Facility: [facility] Address: [address] [place] [address] Performed By: #### 5 8410-2 ####CERV[facility] LABORATORYCLIA [id number] [address] Hemoglobin (Bld) [Mass/Vol] 11.0 g/dL Low 11.5-15.5 [facility] Comment on above: Order Comment: Speci men Type: BLOOD SPECIMENOrdering Facility: [facility] Address: [address] [place] [address] Performed By: #### 5 8410-2 ####[facility] LABORATORYCLIA [id number] [address] MCH (RBC) [Entitic mass] 30.4 pg Normal 26.0-34.0 [facility] Comment on above: Order Comment: Speci men Type: BLOOD SPECIMENOrdering Facility: [facility] Address: [address] [place] [address] Performed By: #### 5 8410-2 ####[facility] LABORATORYCLIA [id number] [address] MCHC (RBC) [Mass/Vol] 33.0 g/dL Normal 30.5-36.0 [facility] Comment on above: Order Comment: Speci men Type: BLOOD SPECIMENOrdering Facility: [facility] Address: [address] [place] [address] Performed By: #### 5 8410-2 ####[facility] LABORATORYCLIA [id number] [address] MCV (RBC) [Entitic vol] 92.0 fL Normal 80.0-100.0 [facility] Comment on above: Order Comment: Speci men Type: BLOOD SPECIMENOrdering Facility: [facility] Address: [address] [place] [address] Performed By: #### 5 8410-2 ####CERV[facility] LABORATORYCLIA [id number] [address] OF [place] Nucleated RBC (Bld) [#/Vol] 10*3/uL Normal <0.01 [facility] Comment on above: Order Comment: Speci men Type: BLOOD SPECIMENOrdering Facility: [facility] Address: [address] [place] [address] Performed By: #### 5 8410-2 ####CERV[facility] LABORATORYCLIA [id number] [address] OF [place] Platelet mean volume (Bld) [Entitic vol] 10.2 fL Normal 9.0-12.7 [facility] Comment on above: Order Comment: Speci men Type: BLOOD SPECIMENOrdering Facility: [facility] Address: [address] [place] [address] Performed By: #### 5 8410-2 ####CERV[facility] LABORATORYCLIA [id number] [address] Platelets (Bld) [#/Vol] 158 10*3/uL Normal 150-400 [facility] Comment on above: Order Comment: Speci men Type: BLOOD SPECIMENOrdering Facility: [facility] Address: [address] [place] [address] Performed By: #### 5 8410-2 ####[facility] LABORATORYCLIA [id number] [address] [place] RBC (Bld) [#/Vol] 3.62 10*6/uL Low 3.90-5.20 [facility] Comment on above: Order Comment: Speci men Type: BLOOD SPECIMENOrdering Facility: [facility] Address: [address] [place] [address] Performed By: #### 5 8410-2 ####CERV[facility] LABORATORYCLIA [id number] [address] WBC (Bld) [#/Vol] 7.29 10*3/uL Normal 3.70-11.00 [facility] Comment on above: Order Comment: Speci men Type: BLOOD SPECIMENOrdering Facility: [facility] Address: [address] [place] [address] Performed By: #### 5 8410-2 ####CERV[facility] LABORATORYCLIA [id number] [address] Comprehensive metabolic 2000 panelon 09-19-2024 Albumin [Mass/Vol] 2.7 g/dL Low 3.9-4.9 [facility] Comment on above: Order Comment: Speci men Type: BLOOD SPECIMENOrdering Facility: [facility] Address: [address] [place] [address] Performed By: #### 2 4323-8, ####CERV[facility] LABORATORYCLIA [id number] [address] ALP [Catalytic activity/Vol] 36 U/L Normal 34-123 [facility] Comment on above: Order Comment: Speci men Type: BLOOD SPECIMENOrdering Facility: [facility] Address: [address] [place] [address] Performed By: #### 2 4323-8, 72397-5 ####[facility] LABORATORYCLIA [id number] [address] ALT [Catalytic activity/Vol] 6 U/L Low 7-38 [facility] Comment on above: Order Comment: Speci men Type: BLOOD SPECIMENOrdering Facility: [facility] Address: [address] [place] [address] Performed By: #### 2 4323-8, 60177-4 ####CERV[facility] LABORATORYCLIA [id number] [address] Anion gap [Moles/Vol] 13 mmol/L Normal 8-15 [facility] Comment on above: Order Comment: Speci men Type: BLOOD SPECIMENOrdering Facility: [facility] Address: [address] [place] [address] Performed By: #### 2 8, ####CERV[facility] LABORATORYCLIA [id number] [place] [address] [place] AST [Catalytic activity/Vol] 19 U/L Normal 13-35 [facility] Comment on above: Order Comment: Speci men Type: BLOOD SPECIMENOrdering Facility: [facility] Address: [address] [place] [address] Performed By: #### 2 8, ####C[facility] LABORATORYCLIA [id number] [place] [address] [place] Bilirubin [Mass/Vol] 0.5 mg/dL Normal 0.2-1.3 [facility] Comment on above: Order Comment: Speci men Type: BLOOD SPECIMENOrdering Facility: [facility] Address: [address] [place] [address] Performed By: #### 2 4323-01, ####CERV[facility] LABORATORYCLIA [id number] [place] [address] [place] Calcium [Mass/Vol] 8.6 mg/dL Normal 8.5-10.2 [facility] Comment on above: Order Comment: Speci men Type: BLOOD SPECIMENOrdering Facility: [facility] Address: [address] [place] [address] Performed By: #### 2 8, ####C[facility] LABORATORYCLIA [id number] [place] [address] [place] Chloride [Moles/Vol] 103 mmol/L Normal 98-107 [facility] Comment on above: Order Comment: Speci men Type: BLOOD SPECIMENOrdering Facility: [facility] Address: [address] [place] [address] Performed By: #### 2 43238, ####CERVANTES LABORATORYCLIA [id number] [place] [address] [place] CO2 [Moles/Vol] 24 mmol/L Normal 22-30 [facility] Comment on above: Order Comment: Suzanne garcia Type: BLOOD SPECIMENOrdering Facility: [facility] Address: [address] [place] [address] Performed By: #### 2 4323-8, ####CERV[facility] LABORATORYCLIA [id number] [place] [address] [place] [facility] Creatinine [Mass/Vol] 0.76 mg/dL Normal 0.58-0.96 [facility] Comment on above: Order Comment: Suzanne garcia Type: BLOOD SPECIMENOrdering Facility: [facility] Address: [address] [place] [address] Performed By: #### 2 4323-8, ####CERV[facility] LABORATORYCLIA [id number] [address] Creatinine and Glomerular filtration rate.predicted panel (S/P/Bld) 83 mL/min/1.73m??? Normal >=60 [facility] Comment on above: Order Comment: Suzanne garcia Type: BLOOD SPECIMENOrdering Facility: [facility] Address: [address] [place] [address] Result Comment: Winifred mated Glomerular Filtration Rate [...] Performed By: #### 2 4323-8, ####CERV[facility] LABORATORYCLIA [id number] [place] [id number] [place] Glucose [Mass/Vol] 106 mg/dL High 74-99 [facility] Comment on above: Order Comment: Suzanne radha Type: BLOOD SPECIMENOrdering Facility: [facility] Address: [address] [place] [address] Result Comment: The [place] Diabetes Association (ADA) provides guidance for cutoff [...] Standards of Medical Care in Diabetes 2016, [place] [employer]. Diabetes Care. 2016.39(Suppl 1). Performed By: #### 2 432-8, ####C[facility] LABORATORYCLIA [id number] [place] [address] [place] Potassium [Moles/Vol] 4.7 mmol/L Normal 3.7-5.1 [facility] Comment on above: Order Comment: Suzanne garcia Type: BLOOD SPECIMENOrdering Facility: [facility] Address: [address] [place] [address] Performed By: #### 2 8, ####CERV[facility] LABORATORYCLIA [id number] [place] [address] [place] Protein [Mass/Vol] 5.3 g/dL Low 6.3-8.0 [facility] Comment on above: Order Comment: Suzanne garcia Type: BLOOD SPECIMENOrdering Facility: [facility] Address: [address] [place] [address] Performed By: #### 2 8, ####[facility] LABORATORYCLIA [id number] [place] [address] [place] Sodium [Moles/Vol] 140 mmol/L Normal 136-144 [facility] Comment on above: Order Comment: Suzanne garcia Type: BLOOD SPECIMENOrdering Facility: [facility] Address: [address] [place] [address] Performed By: #### 2 43208-27, ####[facility] LABORATORYCLIA [id number] [place] [address] [place] Urea nitrogen [Mass/Vol] 10 mg/dL Normal 7-21 [facility] Comment on above: Order Comment: Suzanne garcia Type: BLOOD SPECIMENOrdering Facility: [facility] Address: [address], [place] [address] Performed By: #### 2 4323-8, 67536-9 ####HELEN LABORATORYIA [id number] [place] [address] [place] HISTORY PHYSICALon HISTORY PHYSICAL HNO ID: [id number] Author: ARNOL LIN PA-C Service: Hospital Medicine Author Type: Physician Gas Station Clerk Type: H&P Filed: 09/19/2024 01:01 Note Text: [...] AM Primary Care Physician: Raf Casey MD, MD NIGHT AND WEEKEND COVERAGE: [facility] COVERAGE: Days: [phone], please page attending physician. Nights: [phone], please page [place] [facility] Night coverage pager [phone]. Subjective CHIEF COMPLAINT: Fall, left knee pain [...] changes, peripheral edema, paresthesia or focal weaknesses. [facility] ED Course: HDS, afebrile. Labs unremarkable. Imaging [...] daily. HYDROcodone-loyda (more content not included)... Normal [facility] Magnesium SerPl-mCncon 09-19 Magnesium [Mass/Vol] 1.8 mg/dL Normal 1.7-2.3 [facility] Comment on above: Order Comment: Speci men Type: BLOOD SPECIMENOrdering Facility: [facility] Address: [address] [place] [address] Performed By: #### 2 4323-8, 99544-3 ####[facility] LABORATORYCLIA [id number] [place] [id number] [facility] NUTRITIONon 09-19-2024 NUTRITION HNO ID: [id number] Author: DEVYN KAHN RD Service: Nutrition Therapy [...] Greater than 75% estimated energy needs (Drinks Mertzon Instant Breakfast and either Premier or Melton [...] to trial Ensure Max. Pt to order Mertzon Instant Breakfast. Diet Orders (From admission, onward) [...] Drain Duration External Collection Device 09/18/24 2332 [facility] <1 day MNT Billing: $ Initial Assessment: 1-15 minutes SIGNATURE: Devyn Kahn RD PATIENT NAME: Randolph Hunter DATE: September 19, 2024 TIME: 1:12 PM Normal [facility] PT panel Coag (PPP)on 2024 INR Coag (PPP) [Relative time] 1.7 {INR} High 0.9-1.3 [facility] Comment on above: Order Comment: Speci men Type: BLOOD SPECIMENOrdering Facility: [facility] Address: [address] [place] [id number] Result Comment: Kaycee min K Antagonist (VKA) Therapeutic Range: INR 2 to 3 (Target INR of 2.5) Note: For patients treated with VKA drugs, such as warfarin, the [place] [employer] 2012 Guideline recommends [...] Chest 2012, 141:7S-47S Roshni CASTILLO, et al. [facility] 2017, 70: 252-289 Performed By: #### 3 4528-0 ####[facility] LABORATORYCLIA [id number] [place] [id number] [facility] OF [place] PT Coag (PPP) [Time] 17.9 s High 9.7-13.0 [facility] Comment on above: Order Comment: Speci men Type: BLOOD SPECIMENOrdering Facility: [facility] Address: [address] [place] [address] Performed By: #### 3 4528-0 ####[facility] LABORATORYCLIA [id number] [place] [id number] [facility] THERAPY NTon 09-19-2024 THERAPY NT HNO ID: [id number] Author: ESTELLE CAGE PT Service: Physical Therapy Author Type: Physical Therapist Type: Therapy (PT/OT/Speech/Resp) Filed: 09/19/2024 17:41 Note Text: Summary: PT evaluation Physical Therapy Evaluation Summary SERVICE DATE: 09/19/2024 SERVICE TIME: 1545 to 1629 ROOM: [id number]-2Y-9914-1 PT 6 Clicks Score: 12 DISCHARGE RECOMMENDATIONS [...] time. Leg Injury . Patient admitted to [facility] with Dx: Decreased activities of daily living (ADL), Fall at home, initial encounter Relevant Past Medical History: DM, edema, depression,asthma, obesity, irsutism, venous insufficiency, oseteomyeliitis of foot, SLE, cerebral palsy, pulmonary embolism, hypothyroidism, insomnai, CAD, migraines, HTN, hysterectomy HOME LIVING Patient Lives With: Spouse Assistance Available: 24-Hour, Other: See Comment Comments: [facility] staff for toileting and shower Entry To [...] Reduced mobility-other TREATMENT INTERVENTIONS Evaluation, Therapeutic Activity (67006) Timed Code Treatment (minutes): 25 Skilled Treatment Time (minutes): 44 $ Evaluation-Low (42306) Billed Units: 1 unit Therapeutic Activity (23642) Treatment Minutes: 25 $ Therapeutic Activity (24998) Billed Units: 2 units Range of Motion: [...] Sit to Supi (more content not included)... [facility] THERAPY NT HNO ID: [id number] Author: ESTELLE CAGE PT Service: Physical Therapy Author Type: Physical Therapist Type: Therapy (PT/OT/Speech/Resp) Filed: 09/19/2024 11:07 Note Text: Summary: PT missed visit PHYSICAL THERAPY MISSED VISIT SERVICE DATE: 09/19/2024 SERVICE TIME: 1105 ROOM: [place] [address] Patient not seen due to Patient Not Available. Discussed patient with RN and patient in the process of transferring to . Will approach as patient is available/appropriate. SIGNATURE: Estelle Cage PT PATIENT NAME: Randolph Hunter DATE: September 19, 2024 TIME: 11:06 AM Normal [facility] URINALYSIS, REFLEX MICROSCOP ICon 09-19-2024 Bilirubin Ql (U) Negative Normal Negative [facility] Comment on above: Order Comment: Speci men Type: URINE SPECIMENOrdering Facility: [facility] Address: [address] [place] [address] Performed By: #### L [id number] ####[facility] LABORATORYCLIA [id number] [address] [place] Clarity (Unsp spec) Clear Normal Clear [facility] Comment on above: Order Comment: Speci men Type: URINE SPECIMENOrdering Facility: [facility] Address: [address] [place] [address] Performed By: #### L [id number] ####[facility] LABORATORYCLIA [id number] [address] Color (U) Yellow Normal Yellow [facility] Comment on above: Order Comment: Speci men Type: URINE SPECIMENOrdering Facility: [facility] Address: [address] [place] [address] Performed By: #### L [id number] ####[facility] LABORATORYCLIA [id number] [place] [id number] [facility] Glucose Test strip (U) [Mass/Vol] Negative Normal Negative [facility] Comment on above: Order Comment: Speci men Type: URINE SPECIMENOrdering Facility: [facility] Address: [address] [place] [address] Performed By: #### L [id number] ####[facility] LABORATORYCLIA [id number] [place] [address] [place] Hemoglobin Ql (U) Negative Normal Negative [facility] Comment on above: Order Comment: Speci men Type: URINE SPECIMENOrdering Facility: [facility] Address: [address] [place] [address] Performed By: #### L [id number] ####[facility] LABORATORYCLIA [id number] [place] [address] [place] Ketones Ql (U) Negative Normal Negative [facility] Comment on above: Order Comment: Speci men Type: URINE SPECIMENOrdering Facility: [facility] Address: [address] [place] [address] Performed By: #### L [id number] ####[facility] LABORATORYCLIA [id number] [place] [address] [place] Leukocyte esterase Test strip Ql (U) Negative Normal Negative [facility] Comment on above: Order Comment: Speci men Type: URINE SPECIMENOrdering Facility: [facility] Address: [address] [place] [address] Performed By: #### L [id number] ####[facility] LABORATORYCLIA [id number] [place] [address] [place] Nitrite Ql (U) Negative Normal Negative [facility] Comment on above: Order Comment: Speci men Type: URINE SPECIMENOrdering Facility: [facility] Address: [address] [place] [address] Performed By: #### L [id number] ####[facility] LABORATORYCLIA [id number] [place] [address] [place] pH (U) 7.0 [pH] Normal 5.0-8.0 [facility] Comment on above: Order Comment: Speci men Type: URINE SPECIMENOrdering Facility: [facility] Address: [address] [place] [address] Performed By: #### L [id number] ####[facility] LABORATORYCLIA [id number] [place] [address] [place] Protein (U) [Mass/Vol] Negative Normal Negative [facility] Comment on above: Order Comment: Speci men Type: URINE SPECIMENOrdering Facility: [facility] Address: [address] [place] [address] Performed By: #### L [id number] ####[facility] LABORATORYCLIA [id number] [place] [id number] [place] Specific gravity (U) [Rel density] 1.010 Normal 1.005-1.03 0 [facility] Comment on above: Order Comment: Speci men Type: URINE SPECIMENOrdering Facility: [facility] Address: [address] [place] [address] Performed By: #### L [id number] ####[facility] HAWK LABORATORYCLIA [id number] [place] [id number] [place] Urobilinogen Ql (U) 0.2 EU/dL Normal 0.2-1.0 EU/dL [facility] Comment on above: Order Comment: Speci men Type: URINE SPECIMENOrdering Facility: [facility] Address: [address] [place] [address] Performed By: #### L [id number] ####[facility] HAWK LABORATORYCLIA [id number] [address] OF [place] ALLIED HEALTHon 09-18-2024 ALLIED HEALTH HNO ID: [id number] Author: OSVALDO BRUCE RT(R) Service: Radiology Author Type: News Gathering Technician Type: Allied Health Filed: 09/18/2024 23:10 Note [...] PATIENT PRESENTS WITH AN IMPLANTABLE OR ATTACHED HAND ROUNDER: No RADIOLOGY DEPARTMENT: General X-ray: Exam(s) Completed: Pelvis X-Ray: Pelvis with Hip Left Lower Extremity X-Ray(s): Ankle, Left PERIPHERAL IV DATA: Not applicable SIGNED BY: RT Lissett(R) September 18, 2024 11:09 PM [facility] ALLIED HEALTH HNO ID: [id number] Author: MONTSERRAT CUEVAS RT(R) Service: Radiology Author [...] PATIENT PRESENTS WITH AN IMPLANTABLE OR ATTACHED HAND ROUNDER: No RADIOLOGY DEPARTMENT: General X-ray: Exam(s) Completed: Lower Extremity X-Ray(s): Knee, AP / LAT Left PERIPHERAL IV DATA: Not applicable SIGNED BY: RT Geeta(R) September 18, 2024 10:31 AM [facility] CBC W Auto Differential pane l (Bld)on 09-18-2024 Basophils (Bld) [#/Vol] 10*3/uL Normal <0.11 [facility] Comment on above: Order Comment: Speci men Type: BLOOD SPECIMENOrdering Facility: [facility] Address: [address] [place] [address] Performed By: #### 5 7021-8 ####[facility] HAWK LABORATORYCLIA [id number] [address] [place] Basophils/100 WBC (Bld) 0.3 % Normal [facility] Comment on above: Order Comment: Speci men Type: BLOOD SPECIMENOrdering Facility: [facility] Address: [address] [place] [address] Performed By: #### 5 7021-8 ####[facility] LABORATORYCLIA [id number] [address] [place] Differential cell count method Nom (Bld) Auto Normal [facility] Comment on above: Order Comment: Speci men Type: BLOOD SPECIMENOrdering Facility: [facility] Address: [address] [place] [address] Performed By: #### 5 7021-8 ####CERVANTES LABORATORYCLIA [id number] [place] [address] [place] Eosinophils (Bld) [#/Vol] 0.16 10*3/uL Normal <0.46 [facility] Comment on above: Order Comment: Speci men Type: BLOOD SPECIMENOrdering Facility: [facility] Address: [address] [place] [address] Performed By: #### 5 7021-8 ####CERVANTES LABORATORYCLIA [id number] [address] [place] Eosinophils/100 WBC (Bld) 2.1 % Normal [facility] Comment on above: Order Comment: Speci men Type: BLOOD SPECIMENOrdering Facility: [facility] Address: [address] [place] [address] Performed By: #### 5 7021-8 ####CERVANTES LABORATORYCLIA [id number] [address] [place] Erythrocyte distribution width (RBC) [Ratio] 13.3 % Normal 11.5-15.0 [facility] Comment on above: Order Comment: Speci men Type: BLOOD SPECIMENOrdering Facility: [facility] Address: [address] [place] [address] Performed By: #### 5 7021-8 ####CERVANTES LABORATORYCLIA [id number] [address] [place] Hematocrit (Bld) [Volume fraction] 37.2 % Normal 36.0-46.0 [facility] Comment on above: Order Comment: Speci men Type: BLOOD SPECIMENOrdering Facility: [facility] Address: [address] [place] [address] Performed By: #### 5 7021-8 ####CERVANTES LABORATORYCLIA [id number] [place] [address] [place] Hemoglobin (Bld) [Mass/Vol] 12.6 g/dL Normal 11.5-15.5 [facility] Comment on above: Order Comment: Speci men Type: BLOOD SPECIMENOrdering Facility: [facility] Address: [address] [place] [address] Performed By: #### 5 7021-8 ####CERVANTES LABORATORYCLIA [id number] [place] [address] [place] Immature granulocytes (Bld) [#/Vol] 10*3/uL Normal <0.10 [facility] Comment on above: Order Comment: Speci men Type: BLOOD SPECIMENOrdering Facility: [facility] Address: [address] [place] [address] Performed By: #### 5 7021-8 ####CERVANTES LABORATORYCLIA [id number] [address] [place] Immature granulocytes/100 WBC (Bld) 0.3 % Normal [facility] Comment on above: Order Comment: Speci men Type: BLOOD SPECIMENOrdering Facility: [facility] Address: [address] [place] [address] Performed By: #### 5 7021-8 ####CERVANTES LABORATORYCLIA [id number] [place] [address] [place] Lymphocytes (Bld) [#/Vol] 1.71 10*3/uL Normal 1.00-4.00 [facility] Comment on above: Order Comment: Speci men Type: BLOOD SPECIMENOrdering Facility: [facility] Address: [facility] [place] [address] Performed By: #### 5 7021-8 ####CERVANTES LABORATORYCLIA [id number] [address] OF [place] Lymphocytes/100 WBC (Bld) 22.4 % Normal [facility] Comment on above: Order Comment: Speci men Type: BLOOD SPECIMENOrdering Facility: [facility] Address: [address] [place] [address] Performed By: #### 5 7021-8 ####CERVANTES LABORATORYCLIA [id number] [address] MCH (RBC) [Entitic mass] 30.8 pg Normal 26.0-34.0 [facility] Comment on above: Order Comment: Speci men Type: BLOOD SPECIMENOrdering Facility: [facility] Address: [address] [place] [address] Performed By: #### 5 7021-8 ####CERV[facility]ES LABORATORYCLIA [id number] [address] [place] MCHC (RBC) [Mass/Vol] 33.9 g/dL Normal 30.5-36.0 [facility] Comment on above: Order Comment: Speci men Type: BLOOD SPECIMENOrdering Facility: [facility] Address: [address] [place] [address] Performed By: #### 5 7021-8 ####CERVANTES LABORATORYCLIA [id number] [address] MCV (RBC) [Entitic vol] 91.0 fL Normal 80.0-100.0 [facility] Comment on above: Order Comment: Speci men Type: BLOOD SPECIMENOrdering Facility: [facility] Address: [address] [place] [address] Performed By: #### 5 7021-8 ####CERVANTES LABORATORYCLIA [id number] [address] Monocytes (Bld) [#/Vol] 0.54 10*3/uL Normal <0.87 [facility] Comment on above: Order Comment: Speci men Type: BLOOD SPECIMENOrdering Facility: [facility] Address: [address] [place] [address] Performed By: #### 5 7021-8 ####CERVANTES LABORATORYCLIA [id number] [address] Monocytes/100 WBC (Bld) 7.1 % Normal [facility] Comment on above: Order Comment: Speci men Type: BLOOD SPECIMENOrdering Facility: [facility] Address: [address] [place] [address] Performed By: #### 5 7021-8 ####CERVANTES LABORATORYCLIA [id number] [place] [address] [place] Neutrophils (Bld) [#/Vol] 5.18 10*3/uL Normal 1.45-7.50 [facility] Comment on above: Order Comment: Speci men Type: BLOOD SPECIMENOrdering Facility: [facility] Address: [address] [place] [address] Performed By: #### 5 7021-8 ####CERV[facility]ES LABORATORYCLIA [id number] [place] [address] [place] Neutrophils/100 WBC (Bld) 67.8 % Normal [facility] Comment on above: Order Comment: Speci men Type: BLOOD SPECIMENOrdering Facility: [facility] Address: [address] [place] [address] Performed By: #### 5 7021-8 ####CERVANTES LABORATORYCLIA [id number] [place] [address] [place] Nucleated RBC (Bld) [#/Vol] 10*3/uL Normal <0.01 [facility] Comment on above: Order Comment: Speci men Type: BLOOD SPECIMENOrdering Facility: [facility] Address: [address] [place] [address] Performed By: #### 5 7021-8 ####CERVANTES LABORATORYCLIA [id number] [address] OF [place] Nucleated RBC/100 WBC (Bld) [Ratio] 0.0 /100 WBC Normal [facility] Comment on above: Order Comment: Speci men Type: BLOOD SPECIMENOrdering Facility: [facility] Address: [address] [place] [address] Performed By: #### 5 7021-8 ####CERV[facility]ES LABORATORYCLIA [id number] [address] [place] Platelet mean volume (Bld) [Entitic vol] 10.0 fL Normal 9.0-12.7 [facility] Comment on above: Order Comment: Speci men Type: BLOOD SPECIMENOrdering Facility: [facility] Address: [address] [place] [id number] Performed By: #### 5 7021-8 ####CERV[facility]ES LABORATORYCLIA [id number] [place] [address] [place] Platelets (Bld) [#/Vol] 176 10*3/uL Normal 150-400 [facility] Comment on above: Order Comment: Speci men Type: BLOOD SPECIMENOrdering Facility: [facility] Address: [facility] [place] [address] Performed By: #### 5 7021-8 ####CERVANTES LABORATORYCLIA [id number] [place] [address] [place] RBC (Bld) [#/Vol] 4.09 10*6/uL Normal 3.90-5.20 [facility] Comment on above: Order Comment: Speci men Type: BLOOD SPECIMENOrdering Facility: [facility] Address: [address] [place] [address] [place] [address] Performed By: #### 5 7021-8 ####CERV[facility]ES LABORATORYCLIA [id number] [place] [address] [place] WBC (Bld) [#/Vol] 7.63 10*3/uL Normal 3.70-11.00 [facility] Comment on above: Order Comment: Speci men Type: BLOOD SPECIMENOrdering Facility: [facility] Address: [address] [place] [address] [place] [address] Performed By: #### 5 7021-8 ####CERVANTES LABORATORYCLIA [id number] [place] [id number] [facility] OF [place] CT KNEE WO IVCON LTon 2024 CT KNEE WO IVCON LT * * *Final Report* * * DATE OF EXAM: Sep 18 2024 10:[address] [place] [address] 0083 - CT KNEE WO IVCON LT [...] Small joint effusion. * Tricompartmental degenerative changes. Snuff Grinder: PSCMarixa Transcribe Date/Time: Sep 18 2024 11:34P Dictated by : STEPHANE GRIMES MD This examination was interpreted and the report reviewed and electronically signed by: STEPHANE GRIMES MD on Sep 18 2024 11:37PM EST [id number] Normal [facility] Comprehensive metabolic 2000 panelon 09-18-2024 Albumin [Mass/Vol] 3.2 g/dL Low 3.9-4.9 [facility] Comment on above: Order Comment: Speci men Type: BLOOD SPECIMENOrdering Facility: [facility] Address: [address] [place] [address] Performed By: #### 2 4323-8 ####[facility] LABORATORYCLIA [id number] [address] STATES OF [facility] ALP [Catalytic activity/Vol] 42 U/L Normal 34-123 [facility] Comment on above: Order Comment: Speci men Type: BLOOD SPECIMENOrdering Facility: [facility] Address: [address] [place] [address] Performed By: #### 2 4323-8 ####CERV[facility] LABORATORYCLIA [id number] [address] STATES [facility] ALT [Catalytic activity/Vol] 8 U/L Normal 7-38 [facility] Comment on above: Order Comment: Speci men Type: BLOOD SPECIMENOrdering Facility: [facility] Address: [address] [place] [address] Performed By: #### 2 4323-8 ####CERV[facility]ES LABORATORYCLIA [id number] [address] [place] Anion gap [Moles/Vol] 10 mmol/L Normal 8-15 [facility] Comment on above: Order Comment: Speci men Type: BLOOD SPECIMENOrdering Facility: [facility] Address: [address] [place] [address] Performed By: #### 2 4323-8 ####CERV[facility]ES LABORATORYCLIA [id number] [place] [address] [place] AST [Catalytic activity/Vol] 19 U/L Normal 13-35 [facility] Comment on above: Order Comment: Speci men Type: BLOOD SPECIMENOrdering Facility: [facility] Address: [address] [place] [address] Performed By: #### 2 4323-8 ####CERV[facility] LABORATORYCLIA [id number] [place] [address] [place] Bilirubin [Mass/Vol] 0.5 mg/dL Normal 0.2-1.3 [facility] Comment on above: Order Comment: Speci men Type: BLOOD SPECIMENOrdering Facility: [facility] Address: [address] [place] [address] Performed By: #### 2 4323-8 ####CERVANTES LABORATORYCLIA [id number] [place] [address] [place] Calcium [Mass/Vol] 9.1 mg/dL Normal 8.5-10.2 [facility] Comment on above: Order Comment: Speci men Type: BLOOD SPECIMENOrdering Facility: [facility] Address: [address] [place] [address] Performed By: #### 2 4323-8 ####CERV[facility]ES LABORATORYCLIA [id number] [place] [address] [place] Chloride [Moles/Vol] 98 mmol/L Normal 98-107 [facility] Comment on above: Order Comment: Speci men Type: BLOOD SPECIMENOrdering Facility: [facility] Address: [address] [place] [address] Performed By: #### 2 4323-8 ####CERV[facility]ES LABORATORYCLIA [id number] [place] [address] [place] CO2 [Moles/Vol] 28 mmol/L Normal 22-30 [facility] Comment on above: Order Comment: Suzanne radha Type: BLOOD SPECIMENOrdering Facility: [facility] Address: [address] [place] [address] Performed By: #### 2 4323-8 ####CERVANTES LABORATORYCLIA [id number] [place] [address] [place] Creatinine [Mass/Vol] 0.80 mg/dL Normal 0.58-0.96 [facility] Comment on above: Order Comment: Suzanne men Type: BLOOD SPECIMENOrdering Facility: [facility] Address: [address] [place] [address] Performed By: #### 2 4323-8 ####CERVANTES LABORATORYCLIA [id number] [address] Creatinine and Glomerular filtration rate.predicted panel (S/P/Bld) 78 mL/min/1.73m??? Normal >=60 [facility] Comment on above: Order Comment: Suzanne radha Type: BLOOD SPECIMENOrdering Facility: [facility] Address: [address] [place] [address] Result Comment: Winifred mated Glomerular Filtration Rate [...] Performed By: #### 2 4323-8 ####CERVANTES LABORATORYCLIA [id number] [address] [place] Glucose [Mass/Vol] 121 mg/dL High 74-99 [facility] Comment on above: Order Comment: Suzanne garcia Type: BLOOD SPECIMENOrdering Facility: [facility] Address: [address] [place] [address] Result Comment: The [place] Diabetes Association (ADA) provides guidance for cutoff [...] Standards of Medical Care in Diabetes 2016, [place] [employer]. Diabetes Care. 2016.39(Suppl 1). Performed By: #### 2 4323-8 ####CERVANTES LABORATORYCLIA [id number] [place] [address] [place] Potassium [Moles/Vol] 4.3 mmol/L Normal 3.7-5.1 [facility] Comment on above: Order Comment: Suzanne garcia Type: BLOOD SPECIMENOrdering Facility: [facility] Address: [address] [place] [address] Performed By: #### 2 4323-8 ####CERVANTES LABORATORYCLIA [id number] [place] [address] [place] Protein [Mass/Vol] 6.4 g/dL Normal 6.3-8.0 [facility] Comment on above: Order Comment: Naeemi radha Type: BLOOD SPECIMENOrdering Facility: [facility] Address: [address] [place] [address] Performed By: #### 2 4323-8 ####CERVANTES LABORATORYCLIA [id number] [place] [address] [place] Sodium [Moles/Vol] 136 mmol/L Normal 136-144 [facility] Comment on above: Order Comment: Speci men Type: BLOOD SPECIMENOrdering Facility: [facility] Address: [address] [place] [address] Performed By: #### 2 4323-8 ####CERVANTES LABORATORYCLIA [id number] [place] [address] [place] Urea nitrogen [Mass/Vol] 10 mg/dL Normal 7-21 [facility] Comment on above: Order Comment: Naeemi men Type: BLOOD SPECIMENOrdering Facility: [facility] Address: [address] [place] [address] Performed By: #### 2 4323-8 ####BL[facility] HAWK LABORATORYCLIA [id number] [place] [address] [facility] ED NOTEon 09-18-2024 ED NOTE HNO ID: [id number] Author: MONE KING, NAWAF Service: ? Author Type: Registered Nurse Type: ED Notes Filed: 09/18/2024 22:14 Note Text: Pt report given to Zaria (RN) [facility] ED NOTE HNO ID: [id number] Author: MONE KING, NAWAF Service: ? Author Type: Registered Nurse Type: ED Notes Filed: 09/18/2024 22:15 Note Text: IV attempted by this RN. Medic requested to bedside for ultrasound. [facility] ED NOTE HNO ID: [id number] Author: LIANNE FERNANDEZ, NAWAF Service: ? Author Type: Registered Nurse Type: ED Notes Filed: 09/18/2024 20:22 Note Text: Bed: ED-15 Expected date: Expected time: Means of arrival: Comments: [facility] ED NOTE HNO ID: [id number] Author: LIANNE FERNANDEZ, NAWAF Service: ? Author Type: Registered Nurse Type: ED Notes Filed: 09/18/2024 13:36 Note Text: Discharge instructions reviewed with patient via teachback. Pt verbalizes understanding. Pt awake and alert, respirations regular and unlabored. No further questions for this RN. Report given to [facility] ED NOTE HNO ID: [id number] Author: ZARIA ZAPATA RN Service: ? Author Type: Registered Nurse Type: ED Notes Filed: 09/18/2024 10:15 Note Text: Bed: ED-01 Expected date: Expected time: Means of arrival: [place] [facility] Comments: [facility] ED PROV NOTEon 09-18-2024 ED PROV NOTE HNO ID: [id number] Author: KRISTI POND DO Service: Emergency Medicine [...] Status Change Penicillins Hives Dioxicillin Promethazine Intolerance Arzdxwp-Cul-Inu Red* Myalgia Cheese Diarrhea, GI Upset Parmesan cheese and citizen [place] cheese, per patient Review of Systems Constitutional: [...] Left lower (more content not included)... Normal [facility] ED PROV NOTE HNO ID: [id number] Author: CLINTON GRAJEDA PA-C Service: ? Author Type: Physician Gas Station Clerk Type: ED Provider Notes Filed: 09/18/2024 11:31 [...] Status Change Penicillins Hives Dioxicillin Promethazine Unknown Irsuavu-Rnu-Rqs Red* Myalgia Cheese Diarrhea, GI Upset Parmesan cheese and citizen [place] cheese, per patient Review of Systems Constitutional: [...] prior sen (more content not included)... Normal [facility] PT panel Coag (PPP)on 2024 INR Coag (PPP) [Relative time] 2.3 {INR} High 0.9-1.3 [facility] Comment on above: Order Comment: Suzanne garcia Type: BLOOD SPECIMENOrdering Facility: [facility] Address: [address] [place] [address] Result Comment: Kaycee min K Antagonist (VKA) Therapeutic Range: INR 2 to 3 (Target INR of 2.5) Note: For patients treated with VKA drugs, such as warfarin, the [place] [employer] 2012 Guideline recommends [...] Chest 2012, 141:7S-47S Roshni RA, et al. JAC 2017, 70: 252-289 Performed By: #### 3 4528-0 ####BL[facility] HA[facility] LABORATORYCLIA [id number] [place] [address] [place] PT Coag (PPP) [Time] 23.8 s High 9.7-13.0 [facility] Comment on above: Order Comment: Suzanne garcia Type: BLOOD SPECIMENOrdering Facility: [facility] Address: [address] [place] [address] Performed By: #### 3 4528-0 ####BL[facility] HAWK LABORATORYCLIA [id number] [place] [address] [place] XR ANKLE 3V [...] tissue swelling of the left lower extremity. Snuff Grinder: PSCMarixa Transcribe Date/Time: Sep 18 2024 11:41P Dictated by : STEPHANE GRIMES MD This examination was interpreted and the report reviewed and electronically signed by: STEPHANE GRIMES MD on Sep 18 2024 11:44PM EST [id number] [facility] XR HIP 3V PELV+ AP/LAT LTon 09-18-2024 [...] tissue swelling of the left lower extremity. Snuff Grinder: CEM Transcribe Date/Time: Sep 18 2024 11:41P Dictated by : STEPHANE GRIMES MD This examination was interpreted and the report reviewed and electronically signed by: STEPHANE GRIMES MD on Sep 18 2024 11:44PM EST [id number] [facility] XR KNEE 4V AP/LAT/OBLS LTon 09-18-2024 XR [...] effusion. Vascular calcifications. IMPRESSION: No acute abnormality Snuff Grinder: [facility] Transcribe Date/Time: Sep 18 2024 10:47A Dictated by : WILBERT WALKER MD This examination was interpreted and the report reviewed and electronically signed by: WILBERT WALKER MD on Sep 18 2024 10:48AM EST [id number] [facility] CNOVon 08-05-2024 CNOV Office Visit (PSYLWM ) DALERANDOLPH ([id number]) 1950 F Date Time Provider Department 08/05/24 11:00 AM GILMER COTTON PSYLWMariella During your visit today, we recorded the following information about you: Gilmer Cotton, PhD 08/05/2024 12:29 PM Signed [facility] Progress Note Randolph Hunter 08/05/2024 [id number] PROVIDER: Gilmer Cotton, PhD CPT Code: Time: [...] Psychiatric Medication Issues: see med record DIAGNOSIS: [place] I: Depress (more content not included)... Normal [facility] ED Nursing Noteon 07-10-2024 ED Nursing Note Pt resting quietly i n bed with blanket over face. Respirations even and non labored. No coughing noted at this time. Await transport by [facility]. Normal [facility] ED Nursing Note Dr. Jha at bedside. Normal [facility] ED Nursing Noteon 07-09-[address] Jha to bedside . Pt given water. [facility] ED Provider Noteon ED Provider [...] TABLET Place under the tongue. NYSTATIN (MYCOSTATIN) [id number] UNIT/GM POWDER Apply topically 2 times daily. [...] Resource Strain: Low Risk (01/02/2020) Received from [facility] Overall Financial Resource Strain (CARDIA) Difficulty of Paying Living Expenses: Not very hard Food Insecurity: Food Insecurity Present (01/02/2020) Received from [facility] Hunger Vital Sign Worried About Running Out of Food in the Last Year: Sometimes true Ran Out of Food in the Last Year: Never true Transportation Needs: Unmet Transportation Needs (01/02/2020) Received from [facility] (more content not included)... Normal [facility] XR Chest Single viewon 07-09 1. No acute consolidation. Report Dictated on Electronically Signed By: Velasquez Nova MD Electronically Signed Date/Time: 07/09/2024 11:45 PM [facility] [facility] Patient Name: RANDOLPH HUNTER : [...] change again noted in the thoracic spine. [facility] Velasquez Nova MD - 07/09/2024 Patient Name: RANDOLPH HUNTER : 1950 Exam [...] Electronically Signed Date/Time: 07/09/2024 11:45 PM EST [facility] Radiology Study observation (narrative) [facility] XR Chest Single viewOrdered By: Velasquez Nova on 07-09-2024 [facility] Work Phone: CNOVon 05-02-2024 CNOV Office Visit (PSYLWM ) RANDOLPH HUNTER ([id number]) 1950 F Date Time Provider Department 05/02/24 11:00 AM GILMER COTTON PSYLWM During your visit today, we recorded the following information about you: Gilmer Cotton, PhD 05/02/2024 12:11 PM Signed [facility] Health Department Progress Note Randolph Hunter 05/02/2024 [id number] PROVIDER: Gilmer Cotton, PhD CPT Code: Time: [...] directed once a month. blood sugar diagnostic (TistagamesUCH VERIO TEST STRIPS) test strip Test blood [...] Issues: No change from previous appointment DIAGNOSIS: [place] I: Depressive Disorder recurrent Morbidly Obese CP [place] II : Deferred [place] III : See medical history [place] IV: Health (more content not included)... Normal [facility] CNOVon 03-04-2024 CNOV Office Visit (PSYLWM ) RANDOLPH HUNTER ([id number]) 1950 F Date Time Provider Department 03/04/24 11:00 AM GILMER COTTON PSYLWM During your visit today, we recorded the following information about you: Gilmer Cotton, PhD 03/04/2024 12:06 PM Signed [facility] Department Progress Note Randolph Hunter 03/04/2024 [id number] PROVIDER: Gilmer Cotton, PhD CPT Code: Time: [...] the maintenance of the bldg and food sanitarian is slowly improving Lots of change in [...] directed once a month. blood sugar diagnostic ([employer] VERIO TEST STRIPS) test strip Test blood [...] this v (more content not included)... Normal [facility] PATINSon 02-10-2024 PATINS Ordered treatment co mpleted and patient is healed. Patient discharged without any issues. All questions answered. Call the clinic if your wound reopens or a new wound appears at [phone]. Edema/Swelling: Avoid standing for long periouds of [...] a day to promote wound healing Normal [facility] Progress Noteon 02-10-2024 Progress Note Assessments Nursing [...] Test Results/Process Orders 10 [] Staff telephones [facility], Nursing Homes/Clarify Orders 10 [] Routine [...] Level 5 (160 or more Points) Normal [facility] Progress Note Subjective Patient ID: Randolph Hunter [...] prn Pt agrees with plan . Normal [facility] CNOVon 01-29-2024 CNOV Office Visit (PSYLWM ) RANDOLPH HUNTER ([id number]) 1950 F Date Time Provider Department 01/29/24 11:00 AM GILMER COTTON PSYLWM During your visit today, we recorded the following information about you: Gilmer Cotton, PhD 01/29/2024 12:00 PM Signed [facility] Department Progress Note Randolph Hunter 01/29/2024 [id number] PROVIDER: Gilmer Cotton, PhD CPT Code: Time: [...] it is slow to get the 2 [facility] w 80 residences each up to speed [...] directed once a month. blood sugar diagnostic ([employer] VERIO TEST STRIPS) test strip Test blood [...] Issues: No change from previous appointment DIAGNOSIS: [place] I: Depressive Disorder recurrent Morbidly Obese CP [place] II : Deferred [place] III : See (more content not included)... Normal [facility] No Panel Informationon 01-26 Isaac Chicas DO 01/27/2024 1:59 PM Debridement Wound/Incision 01/20/24 Diabetic Ulcer Foot Left Performed by: Isaac Chicas DO Authorized by: Isaac Chicas, DO Consent Consent obtained? verbal Consent given by: patient Risks discussed? procedural risks discussed Immediately prior to the procedure a time out was called and the performing provider verified the correct patient, procedure, equipment, technology support analyst, and site/side marked as required. Debridement Details [...] Response to treatment: procedure was tolerated well [facility] PATINSon 01-27-2024 PATINS Follow-up Appointmen ts: Return Appointment in 1 week. Call [facility] at [phone], [facility] at [phone], or [facility] Wound center at [phone]. Edema/Swelling: Avoid standing for long periouds of [...] the wound and secure with tape. Normal [facility] No Panel Informationon 01-19 Isaac Chicas DO 01/20/2024 3:54 PM Debridement Wound/Incision 01/20/24 Pressure Injury Foot Left Performed by: Isaac Chicas DO Authorized by: Isaac Chicas, Consent Consent obtained? verbal Consent given by: patient Risks discussed? procedural risks discussed Immediately prior to the procedure a time out was called and the performing provider verified the correct patient, procedure, equipment, technology support analyst, and site/side marked as required. Debridement Details [...] Response to treatment: procedure was tolerated well [facility] PATINSon 01-20-2024 PATINS Follow-up Appointmen ts: Return Appointment in 1 week. Call [facility] at [phone], [facility] at [phone], or [facility] Wound center at [phone]. Edema/Swelling: Avoid standing for long periouds of [...] the wound and secure with tape. Normal [facility] Progress Noteon 01-20-2024 Progress Note [facility] OSTOMY HBO [address] [facility] [id number] Loc: [phone] Wound Care Visit - New Patient Progress [...] ti,es a day, Disp: , Rfl: HYDROcodone-acetaminophen ([place]) 5-325 MG tablet, Take 1 tablet by [...] the tongue., Disp: , Rfl: nystatin (Mycostatin) 419131 UNIT/GM powder, Apply topically 2 times daily., [...] verbal Consent given (more content not included)... [facility] Progress Note Assessments Nursing Assessment/Reassessment Score (check [...] Test Results/Process Orders 10 [x] Staff telephones [facility], Nursing Homes/Clarify Orders 10 [] Routine [...] Points) Level 5 (160 or more Points) [facility] CNOVon 12-25-2023 CNOV Office Visit (PSYLWM ) DALERANDOLPH ([id number]) 1950 F Date Time Provider Department 12/25/23 11:00 AM GILMER COTTON PSYLWMariella During your visit today, we recorded the following information about you: Gilmer Cotton, PhD 12/25/2023 11:56 AM Signed [facility] Department Progress Note Randolph Hunter 12/25/2023 [id number] PROVIDER: Gilmer Cotton, PhD CPT Code: Time: [...] 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 daughter is a month old and [...] directed once a month. blood sugar diagnostic (PIERIS ProteolabTOUCH VERIO TEST STRIPS) test strip Test blood [...] medications for (more content not included)... Normal [facility] ED Nursing Noteon 12-16-2023 ED Nursing Note Patient wheeled out ED for transport to residence. discharge instructions sent to facility with patient. No further questions. Respirations even and non labored. No acute distress. A&O x4. Gifty Cornell RN 12/16/23 0015 Normal [facility] BASIC METABOLIC PANELon 11-21 Anion gap [Moles/Vol] 4 mmol/L Normal 3-13 [facility] Comment on above: Performed By: #### L AB149, LAB15 ####Voltage Regulator Assembler: PING TOWNSEND ([id number])[facility] ([facility])[address] [place] [address] Calcium [Mass/Vol] 8.7 mg/dL Normal 8.4-10.4 [facility] Comment on above: Performed By: #### L AB149, LAB15 ####Voltage Regulator Assembler: PING TOWNSEND ([id number])[facility] ([facility])[address] [place] [address] Chloride [Moles/Vol] 99 mmol/L Normal 98-107 [facility] Comment on above: Performed By: #### L AB149, LAB15 ####Voltage Regulator Assembler: PING TOWNSEND ([id number])[facility] ([facility])[address] [place] [address] [place] CO2 [Moles/Vol] 32 mmol/L High 22-30 [facility] Comment on above: Performed By: #### L AB149, LAB15 ####Voltage Regulator Assembler: PING TOWNSEND ([id number])[facility] ([facility])[address] [place] [address] [place] Creatinine [Mass/Vol] 1.03 mg/dL Normal 0.52-1.04 [facility] Comment on above: Performed By: #### L AB149, LAB15 ####Voltage Regulator Assembler: PING TOWNSEND ([id number])[facility]TERJ[facility] ([facility])[address] [place] [address] [place] GLOMERULAR FILTRATION RATE ML/MIN/1.73 SQ M.PREDICTED 57.9 mL/min/1.73m*2 Low >60.0 [facility] Comment on above: Result Comment: Calc ulation based on the Chronic Kidney Disease Epidemiology Collaboration (CKD-EPI) equation refit without adjustment for race Performed By: #### L AB149, LAB15 ####Voltage Regulator Assembler: PING TOWNSEND ([id number])[facility] ([facility])[address] [place] [address] [place] Glucose [Mass/Vol] 104 mg/dL High 70-100 [facility] Comment on above: Performed By: #### L AB149, LAB15 ####Voltage Regulator Assembler: PING TOWNSEND ([id number])[facility] ([facility])[address] [place] [address] [place] Potassium [Moles/Vol] 4.5 mmol/L Normal 3.5-5.1 [facility] Comment on above: Performed By: #### L AB149, LAB15 ####Voltage Regulator Assembler: PING TOWNSEND ([id number])[facility] (SWRL[facility])[address] [place] [address] [place] Sodium [Moles/Vol] 135 mmol/L Normal 135-145 [facility] Comment on above: Performed By: #### L AB149, LAB15 ####Voltage Regulator Assembler: PING TOWNSEND ([id number])[facility] ERIC CODY[facility]AN (SW[facility])[address] [place] [address] Urea nitrogen [Mass/Vol] 12 mg/dL Normal 7-17 [facility] Comment on above: Performed By: #### L AB149, LAB15 ####Voltage Regulator Assembler: PING TOWNSEND ([id number])[facility] ([facility])[address] [place] [address] BLOOD CULTUREon 12-15-2023 Bacteria identified Cx Nom (Bld) BLOOD CULTURE Reference No growth at 5 days ORDER COMMENTS: Blood Collection Site: Right Antecubital [ S = SUSCEPTIBLE R = RESISTANT I = INTERMEDIATE S-DD = Susceptible-dose dependent NS = Non-susceptible NO = No Interpretation ] Normal [facility] Comment on above: Performed By: #### L AB462 ####Voltage Regulator Assembler: PING TOWNSEND ([id number])[facility] ([facility])[address] [place] [address] Bacteria identified Cx Nom (Bld) BLOOD CULTURE Reference No growth at 5 days ORDER COMMENTS: Blood Collection Site: Left Antecubital [ S = SUSCEPTIBLE R = RESISTANT I = INTERMEDIATE S-DD = Susceptible-dose dependent NS = Non-susceptible NO = No Interpretation ] Normal [facility] Comment on above: Performed By: #### L AB462 ####Voltage Regulator Assembler: PING TOWNSEND ([id number])[facility] ([facility])[address] [place] [address] Basic metabolic 1998 panelon 12-15-2023 Anion gap [Moles/Vol] 4 mmol/L 3 - 13 mmol/L [facility] Calcium [Mass/Vol] 8.7 mg/dL 8.4 - 10. 4 mg/dL [facility] Chloride [Moles/Vol] 99 mmol/L 98 - 107 mmol/L [facility] CO2 [Moles/Vol] 32 mmol/L High 22 - 30 mmol/L [facility] Creatinine [Mass/Vol] 1.03 mg/dL 0.52 - 1.04 mg/dL [facility] GFR/1.73 sq M.predicted MDRD (S/P/Bld) [Vol rate/Area] 57.9 mL/min/{1.73_m2} Low - PINF [facility] Comment on above: Calculation based on the Chronic Kidney Disease Epidemiology Collaboration (CKD-EPI) equation refit without adjustment for race Glucose [Mass/Vol] 104 mg/dL High 70 - 100 mg/dL [facility] Potassium [Moles/Vol] 4.5 mmol/L 3.5 - 5.1 mmol/L [facility] Sodium [Moles/Vol] 135 mmol/L 135 - 145 mmol/L [facility] Urea nitrogen [Mass/Vol] 12 mg/dL 7 - 17 mg/dL [facility] C-REACTIVE PROTEINon 024 CRP [Mass/Vol] 57.4 mg/L High <10.0 [facility] Comment on above: Performed By: #### L AB149, LAB15 ####Voltage Regulator Assembler: PING TOWNSEND ([id number])[facility] ([facility])[address] [place] [address] CBC W Auto Differential pane l (Bld)on 12-15-2023 Basophils (Bld) [#/Vol] 0.0 10*3/uL 0.0 - 0.2 10*3/uL [facility] Basophils/100 WBC (Bld) 0.2 % 0.0 - 2.0 % [facility] Eosinophils (Bld) [#/Vol] 0.1 10*3/uL 0.0 - 0.5 10*3/uL [facility] Eosinophils/100 WBC (Bld) 0.7 % 0.0 - 6.0 % [facility] Erythrocyte distribution width (RBC) [Ratio] 12.6 % 11.5 - 15.0 % [facility] Hematocrit (Bld) [Volume fraction] 38.3 % 35.0 - 47.0 % [facility] Hemoglobin (Bld) [Mass/Vol] 13.1 g/dL 11.7 - 16.0 g/dL [facility] Immature granulocytes (Bld) [#/Vol] 0.0 10*3/uL NINF - 0.1 10*3/uL [facility] Immature granulocytes/100 WBC (Bld) 0.2 % 0.0 - 2.0 % [facility] Interpretation and review of laboratory results Abnormal [facility] IPF 3 [facility] Lymphocytes (Bld) [#/Vol] 0.9 10*3/uL Low 1.0 - 4.3 10*3/uL [facility] Lymphocytes/100 WBC (Bld) 11.2 % Low 15.0 - 45.0 % [facility] MCH (RBC) [Entitic mass] 31.2 pg 26.0 - 34.0 pg [facility] MCHC (RBC) [Mass/Vol] 34.2 % 30.5 - 36.0 % [facility] MCV (RBC) [Entitic vol] 91.2 fL 77.0 - 99.0 fL [facility] Monocytes (Bld) [#/Vol] 0.5 10*3/uL 0.0 - 0.9 10*3/uL [facility] Monocytes/100 WBC (Bld) 5.6 % 5.0 - 13.0 % [facility] Neutrophils (Bld) [#/Vol] 6.8 10*3/uL 1.8 - 7.5 10*3/uL [facility] Neutrophils/100 WBC (Bld) 82.1 % High 38.0 - 82.0 % [facility] Nucleated RBC/100 WBC (Bld) [Ratio] 0.0 % [facility] Platelet mean volume (Bld) [Entitic vol] 10.1 fL 9.0 - 12.7 fL [facility] Platelets (Bld) [#/Vol] 149 10*3/uL 140 - 440 10*3/uL [facility] RBC (Bld) [#/Vol] 4.20 10*6/uL 3.80 - 5.20 10*6/uL [facility] WBC (Bld) [#/Vol] 8.3 10*3/uL 3.6 - 10.7 10*3/uL [facility] CBC WITH AUTO DIFFERENTIALon 12-15-2023 Basophils (Bld) [#/Vol] 0.0 10*3/uL Normal 0.0-0.2 [facility] Comment on above: Performed By: #### L AB322, [id number] ####Voltage Regulator Assembler: PING TOWNSEND ([id number])[facility] ([facility])[address] [place] [address] [place] Basophils/100 WBC (Bld) 0.2 % Normal 0.0-2.0 [facility] Comment on above: Performed By: #### L AB322, [id number] ####Voltage Regulator Assembler: PING TOWNSEND ([id number])[facility] ([facility])[address] [place] [address] Eosinophils (Bld) [#/Vol] 0.1 10*3/uL Normal 0.0-0.5 [facility] Comment on above: Performed By: #### Abiodun AB322, [id number] ####Voltage Regulator Assembler: PING TOWNSEND ([id number])[facility] ([facility])[address] [place] [address] [place] Eosinophils/100 WBC (Bld) 0.7 % Normal 0.0-6.0 [facility] Comment on above: Performed By: #### Abiodun AB322, [id number] ####Voltage Regulator Assembler: PING TOWNSEND ([id number])[facility] ([facility])[address] [place] [address] Erythrocyte distribution width (RBC) [Ratio] 12.6 % Normal 11.5-15.0 [facility] Comment on above: Performed By: #### Abiodun AB322, [id number] ####Voltage Regulator Assembler: PING TOWNSEND ([id number])[facility] ([facility])[address] [place] [address] Hematocrit (Bld) [Volume fraction] 38.3 % Normal 35.0-47.0 [facility] Comment on above: Performed By: #### L AB322, [id number] ####Voltage Regulator Assembler: PING TOWNSEND ([id number])[facility] ([facility])[address] [place] [address] Hemoglobin (Bld) [Mass/Vol] 13.1 g/dL Normal 11.7-16.0 [facility] Comment on above: Performed By: #### Abiodun AB322, [id number] ####Voltage Regulator Assembler: PING TOWNSEND ([id number])[facility] ([facility])[address] [place] [address] IMMATURE GRANS % 0.2 % Normal 0.0-2.0 [facility] Comment on above: Performed By: #### Abiodun AB322, [id number] ####Voltage Regulator Assembler: PING TOWNSEND ([id number])[facility] ([facility])[address] [place] [address] IMMATURE GRANS ABSOLUTE 0.0 10*3/uL Normal <0.1 [facility] Comment on above: Performed By: #### Abiodun AB322, [id number] ####Voltage Regulator Assembler: PING TOWNSEND ([id number])[facility] ([facility])[address] [place] [address] [place] IPF 3 Normal [facility] Comment on above: Performed By: #### Abiodun AB322, [id number] ####Voltage Regulator Assembler: PING TOWNSEND ([id number])[facility] ([facility])[address] [place] [address] [place] Lymphocytes (Bld) [#/Vol] 0.9 10*3/uL Low 1.0-4.3 [facility] Comment on above: Performed By: #### Abiodun AB322, [id number] ####Voltage Regulator Assembler: PING TOWNSEND ([id number])[facility] ([facility])[address] [place] [address] [place] Lymphocytes/100 WBC (Bld) 11.2 % Low 15.0-45.0 [facility] Comment on above: Performed By: #### Abiodun AB322, [id number] ####Voltage Regulator Assembler: PING TOWNSEND ([id number])[facility] (SWRLAB)[address] MCH (RBC) [Entitic mass] 31.2 pg Normal 26.0-34.0 [facility] Comment on above: Performed By: #### Abiodun AB322, [id number] ####Voltage Regulator Assembler: PING TOWNSEND ([id number])[facility] ([facility])[address] MCHC 34.2 % Normal 30.5-36.0 [facility] Comment on above: Performed By: #### Abiodun AB322, [id number] ####Voltage Regulator Assembler: PING TOWNSEND ([id number])[facility]TER[facility] ([facility])[address] [place] [address] MCV (RBC) [Entitic vol] 91.2 fL Normal 77.0-99.0 [facility] Comment on above: Performed By: #### Abiodun AB322, [id number] ####Voltage Regulator Assembler: PING TOWNSEND ([id number])[facility] ([facility])[address] [place] [address] Monocytes (Bld) [#/Vol] 0.5 10*3/uL Normal 0.0-0.9 [facility] Comment on above: Performed By: #### Abiodun AB322, [id number] ####Voltage Regulator Assembler: PING TOWNSEND ([id number])[facility] ([facility]RL[facility])[address] [place] [address] [place] Monocytes/100 WBC (Bld) 5.6 % Normal 5.0-13.0 [facility] Comment on above: Performed By: #### Abiodun AB322, [id number] ####Voltage Regulator Assembler: PING TOWNSEND ([id number])[facility] ([facility]RL[facility])[address] [place] [address] NEUTROPHILS ABSOLUTE 6.8 10*3/uL Normal 1.8-7.5 [facility] Comment on above: Performed By: #### Abiodun AB322, [id number] ####Voltage Regulator Assembler: PING TOWNSEND ([id number])[facility] (SWRLAB)[address] [place] [address] [place] Neutrophils/100 WBC (Bld) 82.1 % High 38.0-82.0 [facility] Comment on above: Performed By: #### Abiodun AB322, [id number] ####Voltage Regulator Assembler: PING TOWNSEND ([id number])[facility] ([facility])[address] [place] [address] [place] NRBC 0.0 /100 WBCs Normal 0.0-2.0 [facility] Comment on above: Performed By: #### Abiodun AB322, [id number] ####Voltage Regulator Assembler: PING TOWNSEND ([id number])[facility] ([facility])[address] [place] [address] [place] Platelet mean volume (Bld) [Entitic vol] 10.1 fL Normal 9.0-12.7 [facility] Comment on above: Performed By: #### Abiodun AB322, [id number] ####Voltage Regulator Assembler: PING TOWNSEND ([id number])[facility] ([facility])[address] [place] [address] [place] Platelets (Bld) [#/Vol] 149 10*3/uL Normal 140-440 [facility] Comment on above: Performed By: #### Abiodun AB322, [id number] ####Voltage Regulator Assembler: PING TOWNSEND ([id number])[facility] ([facility])[address] [place] [address] [place] RBC (Bld) [#/Vol] 4.20 10*6/uL Normal 3.80-5.20 [facility] Comment on above: Performed By: #### L AB322, [id number] ####Voltage Regulator Assembler: PING TOWNSEND ([id number])[facility] ([facility])[address] [place] [address] [place] WBC (Bld) [#/Vol] 8.3 10*3/uL Normal 3.6-10.7 [facility] Comment on above: Performed By: #### L AB322, [id number] ####Voltage Regulator Assembler: PING TOWNSEND ([id number])[facility] ([facility])[address] [place] [address] ED Nursing Noteon 12-15-2023 ED Nursing Note Patient to room 7 vi a [facility] for c/o a left foot ulcer, lower leg erythema, and a headache. Patient reports she has had her foot ulcer for a couple of months. V/S obtained, call light within reach. Normal [facility] ED Provider Noteon ED Provider Note EMERGENCY [...] Resource Strain: Low Risk (01/02/2020) Received from [facility] Overall Financial Resource Strain (CARDIA) Difficulty of Paying Living Expenses: Not very hard Food Insecurity: Food Insecurity Present (01/02/2020) Received from [facility] Hunger Vital Sign Worried About Running Out of Food in the Last Year: Sometimes true Ran Out of Food in the Last Year: Never true Transportation Needs: Unmet Transportation Needs (01/02/2020) Received from [facility] PRAPARE - Transportation Lack of Transportation (Medical): Yes Lack of Transportation (Non-Medical): Yes Physical Activity: Inactive (01/02/2020) Received from [facility] Exercise Vital Sign Days of Exercise per Week: 0 days Minutes of Exercise per Session: 0 min Stress: Stress Concern Present (01/02/2020) Received from [facility] [employer] - Occupational Stress Questionnaire Feeling of Stress : Rather much Social Connections: Moderately Isolated (01/02/2020) Received from [facility] Social Connection and Isolatio (more content not included)... Normal [facility] ED Provider Note This patient was sig [...] about putting in her observation unit at [facility] for 24 hours of IV antibiotics versus discharging home with oral antibiotics. After shared decision-making she elected to go home. I do think that this is a safe plan. She lives in assisted living and they can help her with continuing to monitor her wound. Gave her strict return precautions and discharged in stable condition. Karen Gallardo MD 12/15/231935 Normal [facility] ESR (Bld) [Velocity]Ordered By: Lexi Arce on 12-15-2023 Interpretation and review of laboratory results Normal [facility] - Chemistry and C hemistry - challengeon 12-15-2023 CRP [Mass/Vol] 57.4 mg/L High NINF - 10.0 mg/L [facility] - Hematology and Cell countsOrdered By: Lexi Arce on 12-15-2023 ESR (Bld) [Velocity] 16 mm/h [facility] No Panel Informationon 12-14 Interpretation and review of laboratory results Abnormal [facility] SEDIMENTATION RATE, AUTOMATE Don 12-15-2023 SEDIMENTATION RATE, ERYTHROCYTE 16 mm/hr Normal 0-20 [facility] Comment on above: Performed By: #### L [id number], [id number] ####Voltage Regulator Assembler: [place] ([id number])[facility] ([address] XR Foot - left 3 Viewson No obvious acute osteomyelitis. Report Dictated on Electronically Signed By: Gloria Darnell MD Electronically Signed Date/Time: 12/15/2023 7:01 PM EDT [facility] Patient Name: RANDOLPH HUNTER : [...] of the forefoot. Diffuse vascular calcification present. [facility] Gloria Darnell MD - 12/15/2023 Patient [...] Electronically Signed Date/Time: 12/15/2023 7:01 PM EDT [facility] Radiology Study observation (narrative) [facility] XR Foot - left 3 ViewsOrdere d By: Gloria Darnell on 12-15-2023 [facility] Work Phone: ED Nursing Noteon 07-20-2023 ED Nursing Note Physician's arrived; pt removed from urine collection device and pts own attends placed on pt per her request. Pts belongings in bag at bedside. Report to Physician's. Veronika Bae RN 07/20/23 0818 Normal [facility] ED Nursing Note Physician's Ambulanc e arrived with an ambulette/wheelchair van. Chasidy MCCRACKEN spoke with Physician's to inform them that the pt is non ambulatory and needed a stretcher. Physician's states they will have a stretcher here "within the hour." Veronika Bae RN 07/20/23 0717 Normal [facility] ED Nursing Note Patient pressed call light to request pain medication. States pain is in shoulders and down the back from laying on the tables. notified Gifty Cornell RN 07/20/23 0044 Normal [facility] CT CERVICAL SPINE WO IV CONT Teresa 07-19-2023 CT CERVICAL SPINE WO IV CONTRAST Patient Name: RANDOLPH HUNTER : 1950 Exam Date/Time: 07/19/2023 22:56 Procedure: CT CERVICAL SPINE WO IV CONTRAST Ordering Provider: ANNA DOUGLAS Reason For Exam: cervical spine pain after fall. fails emirati CT CERVICAL SPINE: CLINICAL INDICATION: cervical spine pain after fall. fails emirati TECHNIQUE: Transaxial sequence through the cervical spine. [...] Electronically Signed Date/Time: 07/19/2023 11:18 PM EST [facility] CT Cervical spine WO contras ton 07-19-2023 No acute cervical sp ine fracture. Multilevel cervical spondylosis. Report Dictated on Electronically Signed By: Albina Newton MD Electronically Signed Date/Time: 07/19/2023 11:18 PM EST [facility] Patient Name: RANDOL[facility] H[facility]TER [facility] 1950 [id number] Exam Date/Time: 07/19/2023 22:56 Procedure: CT CERVICAL SPINE WO IV CONTRAST Ordering Provider: ANNA DOUGLAS Reason For Exam: cervical spine pain after fall. fails emirati CT CERVICAL SPINE: CLINICAL INDICATION: cervical spine pain after fall. fails emirati TECHNIQUE: Transaxial sequence through the cervical spine. [...] submandibular gland. Other: Lung apices are unremarkable. [facility] [employer] [facility] Albina Newton M D - 07/19/2023 Patient Name: RANDOLPH HUNTER : 1950 Exam Date/Time: 07/19/2023 22:56 Procedure: CT CERVICAL SPINE WO IV CONTRAST Ordering Provider: ANNA DOUGLAS Reason For Exam: cervical spine pain after fall. fails emirati CT CERVICAL SPINE: CLINICAL INDICATION: cervical spine pain after fall. fails emirati TECHNIQUE: Transaxial sequence through the cervical spine. [...] Electronically Signed Date/Time: 07/19/2023 11:18 PM EST [facility] impok Radiology Study observation (narrative) [facility] CT Cervical spine WO contras tOrdered By: Albina Newton on 07-19-2023 [facility] Phone: CT HEAD WO IV CONTRASTon CT [...] Electronically Signed Date/Time: 07/19/2023 11:02 PM EST [facility] 2023 No acute intracrania l abnormality. Mild diffuse cortical volume loss. Report Dictated on Electronically Signed By: Albina Newton MD Electronically Signed Date/Time: 07/19/2023 11:02 PM [facility] Patient Name: RANDOLPH HUNTER : [...] Orbits: Normal Calvarium and skull base: Normal [facility] Albina Newton M D - [...] Electronically Signed Date/Time: 07/19/2023 11:02 PM EST [facility] Radiology Study observation (narrative) [facility] CT Head WO contrastOrdered B y: Albina Newton on 07-19-2023 [employer] Phone: CT PELVIS WO IV CONTRASTon 0 [...] Electronically Signed Date/Time: 07/19/2023 11:27 PM EST Normal [facility] CT Pelvis WO contraston 06-23 No acute fracture. Nonacute findings, as above. Report Dictated on Electronically Signed By: Albina Newton MD Electronically Signed Date/Time: 07/19/2023 11:27 PM EST [facility] [employer] [facility] Patient Name: RANDOLPH HUNTER : 1950 [...] No sizable hematoma in the soft tissues. [facility] Albina Newton M D - 07/19/2023 Patient Name: RANDOLPH HUNTER : 1950 [facility] [id number] Exam Date/Time: 07/19/2023 22:57 Procedure: CT PELVIS [...] Electronically Signed Date/Time: 07/19/2023 11:27 PM EST [facility] Radiology Study observation (narrative) [facility] CT Pelvis WO contrastOrdered By: Albina Newton on 07-19-2023 [facility] impok Work Phone: ED Nursing Noteon 07-19-2023 ED Nursing Note Report given to Shubham lopes RN & Chasidy RN. Patient still in radiology. Pia Caraballo RN 07/19/23 0171 Normal [facility] ED Nursing Note Dispo per imaging :) Chasidy Fernandez RN 07/19/23 847 Normal [facility] ED Nursing Note Pt placed up for dis charge. No discharge paperwork complete at this time. Once orders are complete and discharge paperwork complete by ER DR Pt will be discharged. Chasidy Fernandez RN 07/19/232251 Normal [facility] ED Nursing Note This RN requested or ders from ER . Chasidy Fernandez RN 07/19/232025 Normal [facility] ED Nursing Note Patient is here for right hip pain. She was transferring to the toilet when she fell. She resides at [address] She currently is working with a physical therapist and is in a wheelchair. Patient hooked up to SUPR due to incontinence. She also has right knee bruising that is from her repeatedly hitting it on her wheelchair. She denies hitting her head or neck during fall. She is on coumadin. Call light within reach. Normal [facility] ED Provider Noteon ED Provider Note EMERGENCY [...] No family history. She lives in a assisted facility and is on Coumadin as she [...] Source Patient (more content not included)... Normal [facility] No Panel Informationon 07-19 1. Right knee arthro plasty in adequate alignment 2. Unremarkable right hip 3. Osteoarthritis of the left knee Report Dictated on Electronically Signed By: Phan Sepulveda MD Electronically Signed Date/Time: 07/19/2023 11:53 PM EST [facility] [employer] [facility] No Panel InformationOrdered By: Phan Sepulveda on 07-19-2023 [employer] Work Phone: XR Femur - right 2 Viewson 0 07-19-2023 Patient Name: RANDOLPH HUNTER : 1950 Exam [...] calcifications as well as the popliteal fossa. [facility] Phan Sepulveda MD - 07/19/2023 Patient Name: [...] Electronically Signed Date/Time: 07/19/2023 11:53 PM EST [facility] Radiology Study observation (narrative) [facility] XR Knee - left 3 Viewson Patient [...] calcifications as well as the popliteal fossa. [facility] Phan Sepulveda MD - 07/19/2023 [...] Electronically Signed Date/Time: 07/19/2023 11:53 PM EST [employer] [facility] Radiology Study observation (narrative) [facility] XR Knee - right 3 Viewson Patient [...] calcifications as well as the popliteal fossa. [facility] Phan Sepulveda MD - 07/19/2023 [...] Electronically Signed Date/Time: 07/19/2023 11:53 PM EST [facility] Radiology Study observation (narrative) [facility] ECG 12-LEADon 09-07-2022 ECG 12-LEAD IMPRESSION: Sinus rhythm Borderline left axis deviation Probable lateral infarct, old Abnrm R prog, consider ASMI or lead placement Electronically Signed On 09-07-2022 11:08:52 EDT by Sai Melchor Normal [facility] ABO and Rh group Confirm Nom (Bld)on 09-06-2022 ABO group Nom (Bld) A [facility] D Ag Ql (RBC) Negative [facility] Basic metabolic 1998 panelon 09-06-2022 Anion gap [Moles/Vol] 5 mmol/L 3 - 13 mmol/L [facility] Calcium [Mass/Vol] 9.2 mg/dL 8.4 - 10. 4 mg/dL [facility] Chloride [Moles/Vol] 104 mmol/L 98 - 107 mmol/L [facility] CO2 [Moles/Vol] 30 mmol/L 22 - 30 mmol/L [facility] Creatinine [Mass/Vol] 0.86 mg/dL 0.52 - 1.04 mg/dL [facility] GFR/1.73 sq M.predicted MDRD (S/P/Bld) [Vol rate/Area] 72.3 mL/min/{1.73_m2} - PINF [facility] Comment on above: Calculation based on the Chronic Kidney Disease Epidemiology Collaboration (CKD-EPI) equation refit without adjustment for race Glucose [Mass/Vol] 144 mg/dL High 70 - 100 mg/dL [facility] Interpretation and review of laboratory results Abnormal [facility] Potassium [Moles/Vol] 5.4 mmol/L High 3.5 - 5.1 mmol/L [facility] Sodium [Moles/Vol] 139 mmol/L 135 - 145 mmol/L [facility] Urea nitrogen [Mass/Vol] 26 mg/dL High 7 - 17 mg/dL [facility] Slightly Hemolyzed. Interpret Potassium with caution. [facility] Blood type and Crossmatch pa shaheen (Bld)on 09-06-2022 ABO group Nom (Bld) A [facility] Blood group antibody screen GEL Ql Negative [facility] D Ag Ql (RBC) Negative [facility] CBC W Auto Differential pane l (Bld)on 09-06-2022 Basophils (Bld) [#/Vol] 0.0 10*3/uL 0.0 - 0.2 10*3/uL [facility] Basophils/100 WBC (Bld) 0.5 % 0.0 - 2.0 % [facility] Eosinophils (Bld) [#/Vol] 0.2 10*3/uL 0.0 - 0.5 10*3/uL [facility] Eosinophils/100 WBC (Bld) 3.3 % 1.0 - 6.0 % [facility] Erythrocyte distribution width (RBC) [Ratio] 14.5 % 11.5 - 14.5 % [facility] Hematocrit (Bld) [Volume fraction] 40.1 % 35.0 - 47.0 % [facility] Hemoglobin (Bld) [Mass/Vol] 12.9 g/dL 11.7 - 16.0 g/dL [facility] Interpretation and review of laboratory results Normal [facility] Lymphocytes (Bld) [#/Vol] 1.6 10*3/uL 1.0 - 4.3 10*3/uL [facility] Lymphocytes/100 WBC (Bld) 24.7 % 20.0 - 40.0 % [facility] MCH (RBC) [Entitic mass] 30.6 pg 26.0 - 34.0 pg [facility] MCHC (RBC) [Mass/Vol] 32.2 % 32.0 - 36.0 % [facility] MCV (RBC) [Entitic vol] 95.2 fL 80.0 - 98.0 fL [facility] Monocytes (Bld) [#/Vol] 0.5 10*3/uL 0.0 - 0.8 10*3/uL [facility] Monocytes/100 WBC (Bld) 7.9 % 2.0 - 10.0 % [facility] Neutrophils (Bld) [#/Vol] 4.1 10*3/uL 1.8 - 7.0 10*3/uL [facility] Neutrophils/100 WBC (Bld) 63.6 % 40.0 - 80.0 % [facility] Nucleated RBC/100 WBC (Bld) [Ratio] 0.1 % [facility] Platelet mean volume (Bld) [Entitic vol] 8.7 fL 7.4 - 12.4 fL [facility] Platelets (Bld) [#/Vol] 150 10*3/uL 140 - 440 10*3/uL [facility] RBC (Bld) [#/Vol] 4.21 10*6/uL 3.8 - 5.20 10*6/uL [facility] WBC (Bld) [#/Vol] 6.4 10*3/uL 3.6 - 10.7 10*3/uL [facility] CT CERVICAL SPINE WO IV CONT [facility] 09-06-2022 CT CERVICAL SPINE WO IV CONTRAST Patient Name: PATSY JUAN : 1950 [place] [id number] Exam Date/Time: 09/06/2022 02:11 Procedure: CT CERVICAL [...] Electronically Signed Date/Time: 09/06/2022 2:24 AM EDT [facility] CT Cervical spine WO contras ton 09-06-2022 No cervical spine fr acture. Report Dictated on Workstation: [employer] Electronically Signed By: Tiago Charles Electronically Signed Date/Time: 09/06/2022 2:24 AM EDT [facility] [employer] [facility] Patient Name: DANIEL DIAZ ECHO : [...] soft tissues and lung apices are unremarkable. [facility] Tiago Charles MD - Patient Name: DRAKE ECHO : 1950 Exam [...] Electronically Signed Date/Time: 09/06/2022 2:24 AM EDT [facility] CT HEAD WO IV CONTRASTon CT HEAD WO IV CONTRAST Patient Name: PATSY JUAN : 1950 [place] [id number] Exam Date/Time: 09/06/2022 08:26 Procedure: CT HEAD [...] secondary to chronic small vessel ischemia. The acbrera-white differentiation is grossly intact. Probable small lacunar [...] Electronically Signed Date/Time: 09/06/2022 8:39 AM EDT Normal [facility] CT HEAD WO IV CONTRAST Patient Name: DRAKE ECHO [...] Electronically Signed Date/Time: 09/06/2022 2:16 AM EDT Normal [facility] CT Head WO contraston [address] evidence of ac [place] intracranial abnormality, other than mild acute sphenoid sinusitis. Report Dictated on Electronically Signed By: Gloria Darnell Electronically Signed Date/Time: 09/06/2022 8:39 AM EDT [facility] Patient Name: DANIEL DIAZ, ECHO : 1950 Exam Date/Time: 09/06/2022 08:26 [...] the distal vertebral arteries is also noted. [facility] Gloria Darnell MD - 09/06/2022 Patient Name: PATSY JUAN : 1950 [facility]#: [id number] Exam Date/Time: 09/06/2022 08:26 Procedure: CT HEAD [...] Electronically Signed Date/Time: 09/06/2022 8:39 AM EDT [facility] Radiology Study observation (narrative) [facility] No acute intracrania l hemorrhage or mass effect. Report Dictated on Electronically Signed By: Tiago Charles Electronically Signed Date/Time: 09/06/2022 2:16 AM EDT [facility] [employer] [facility] Patient Name: PATSY MCFARLANE : 1950 Exam Date/Time: 09/06/2022 02:11 Procedure: [...] cells are well aerated. Calvarium is unremarkable. [facility] Tiago Charles MD - Patient Name: [...] Electronically Signed Date/Time: 09/06/2022 2:16 AM EDT [facility] CT Head WO contrastOrdered B y: Gloria Hernandezdianaremy on 09-06-2022 [facility] Work Phone: ED Nursing Noteon 09-06-2022 ED Nursing Note RN called back from [facility]idence for report after patient left. This RN updated RN. No questions or concerns Lucy Jones RN 09/06/22 1115 [facility] ED Nursing Note This RN attempted re port at [facility] for patient. RN's busy, engineering secretary took RN name and number to return call for report if wanted. Lucy Jones RN 09/06/22 1018 [facility] ED Nursing Note DM ETA 20-30 min (10 20-1030) Lucy Jones RN 09/06/22 0953 [facility] ED Nursing Note Patient resting with eyes closed. Respirations even and unlabored. RN called about work order for call light / panel. Will be there soon to fix. Lucy Jones RN 09/06/22 0944 [facility] ED Nursing Note Pt back in room Lucy Jones RN 09/06/22 0832 [facility] ED Nursing Note Pt at CT Lucy Jones RN 09/06/22 0850 [facility] ED Nursing Note Patient yelling [...] this time Lucy Jones RN 09/06/22 0739 [facility] ED Nursing Note Pt to x-ray in stabl e condition. Bárbara Hogan RN 09/06/22225 [facility] ED Nursing Note Report of to bárbara Younger RN 09/06/22220 [facility] ED Nursing Note Bed: 23 Expected date: Expected time: Means of arrival: Comments: SX TEAM Aaron Wallace RN 09/06/22220 [facility] ED Provider Noteon ED Provider Note Emergency Department Encounter Location: [facility] EM[facility]PT Patient: Patsy Juan : 1950 [...] 445 ms QTC Interval 457 ms P [place] 49 degrees QRS [place] -29 degrees T Wave [place] 11 degrees HI Interval [address] head wo IV [...] Result Upper pelvis is excluded from the [id number]-[id number]-egpl. No fracture or dislocation of the imaged [...] female whose (more content not included)... Normal [facility] ED Provider Note Emergency Department Encounter Location: [facility] Patient: Patsy Juan : 1950 [...] 445 ms QTC Interval 457 ms P [place] 49 degrees QRS [place] -29 degrees T Wave [place] 11 degrees HI Interval 149 ms XR shoulder 2+ views [...] Result Upper pelvis is excluded from the tadhv-yn-dtyi. No fracture or dislocation of the imaged [...] Final Impression 1. (more content not included)... [facility] ED Provider Note [facility] EMERGENCY DEPARTMENT ENCOUNTER Pt Name: [...] A Ant (more content not included)... Normal [facility] Ethanol (Bld) [Mass/Vol]on 0 09-06-2022 Ethanol [Mass/Vol] g/dL 0.000 - 0.010 g/dL [facility] Laboratory - Chemistry and C hemistry - challengeon 09-06-2022 Troponin I.cardiac [Mass/Vol] ng/mL 0.000 - 0.034 ng/mL [facility] Magnesium [Mass/Vol] 1.8 mg/dL 1.6 - 2.3 mg/dL [facility] Lactate [Moles/Vol] 1.4 mmol/L 0.7 - 2. 0 mmol/L [facility] Laboratory - Coagulationon 0 09-06-2022 aPTT Coag (PPP) [Time] 33.8 s High 20.0 - 30.5 s [facility] INR Coag (PPP) [Relative time] 1.8 {INR} High 0.9 - 1.1 [facility] Comment on above: Recommended Anticoag ulant Therapy: [...] 18.5 s High 9.0 - 12.0 s [facility] Laboratory - Drug toxicology Ordered By: Harper Estes on 09-06-2022 Amphetamines Screen method >1000 ng/mL Ql (U) Negative [facility] Barbiturates Screen method >200 ng/mL Ql (U) Negative [facility] Benzodiazepines Ql (U) Negative [facility] Methadone Screen Ql (U) Negative [facility] Opiates Screen Ql (U) Positive [facility] oxyCODONE Ql (U) Negative [facility] Phencyclidine Ql (U) Negative [facility] Magnesium [Mass/Vol]on 09-06 .01 [facility] No Panel InformationOrdered By: Harper Estes on 09-06-2022 COCAINE METAB. SCREEN Negative [facility] The expected value f or all of [...] is needed, request confirmation under separate order. [facility] [employer] [facility] No Panel Informationon 09-06 Interpretation and review of laboratory results Normal [facility]ok Interpretation and review of laboratory results Normal [facility] Interpretation and review of laboratory results Abnormal [facility] Radiology Study observation (narrative) [facility] Phosphate [Moles/Vol]on 08-20 Phosphate [Mass/Vol] 3.9 mg/dL 2.5 - 4.5 mg/dL [employer] [facility] Slightly Hemolyzed. Interpret Phosphorus with caution. [employer] [facility] Progress Noteon 09-06-2022 Progress Note Department of Trauma / Critical Care Tertiary Survey Date of Trauma: 09/06/2022 1:36 AM MARIANELA/HPI: 72 y.o. female status post fall from standing. The incident happened around 0120 on 09/06/22 at [facility]. When the event happened the patient was [...] 09/06/2022 Patient Name: PATSY JUAN : 1950 [place] [id number] Exam Date/Time: 09/06/2022 02:47 Procedure: XR SHOULDER [...] identified. There (more content not included)... Normal [facility] Troponin I.cardiac [Mass/Vol ]on 09-06-2022 Interpretation and review of laboratory results Normal [facility] Patients with high l evels of Biotin oral intake (ie >5 mg/day) may have falsely decreased Troponin levels. [facility] XR Chest Single viewon 09-06 No focal consolidati on or pulmonary edema. Report Dictated on Electronically Signed By: Tiago Charles Electronically Signed Date/Time: 09/06/2022 2:12 AM EDT [facility] [employer] [facility] Patient Name: DANIEL DIAZ ECHO : 1950 Exam Date/Time: 09/06/2022 02:06 Procedure: XR CHEST 1 VIEW Ordering Provider: HUTSON RICHARD Reason For Exam: TRAUMA PORTABLE CHEST CLINICAL INDICATION: Pain, trauma TECHNIQUE: Portable AP COMPARISON: None FINDINGS: No focal consolidation or pulmonary edema. No pleural effusions or pneumothorax. The cardiac and mediastinal silhouettes are normal. Degenerative change of the thoracic spine is noted. [facility] Tiago Charles MD - Patient [...] consolidation or pulmonary edema. Report Dictated on Workstation: [employer] Electronically Signed By: Tiago Charles Electronically Signed Date/Time: 09/06/2022 2:12 AM EDT [facility] Radiology Study observation (narrative) [facility] XR Chest Single viewOrdered By: Tiago Charles on 09-06-2022 [employer] Work Phone: XR Pelvis 1 or 2 Viewson Upper pelvis is excl uded from the [id number]-er-dnds. No fracture or dislocation of the imaged pelvis. Report Dictated on Electronically Signed By: Tiago Charles Electronically Signed Date/Time: 09/06/2022 2:12 AM EDT [facility] Patient Name: DANIEL DIAZ ECHO : 1950 Exam Date/Time: 09/06/2022 02:07 Procedure: XR PELVIS 1-2 VIEWS Ordering Provider: HUTSON RICHARD Reason For Exam: TRAUMA PELVIS: CLINICAL INDICATION: Pain, trauma. TECHNIQUE: AP. Technical note: Upper pelvis is excluded from the [id number]. COMPARISON: None. FINDINGS: There is no evidence for fracture or dislocation. The hips joints are unremarkable. The imaged sacroiliac joints are normal. No bone lesion is identified. There is no soft tissue abnormality. Surgical clips project over the right groin. [facility] Tiago Charles MD - Patient Name: PATSY JUAN : 1950 Exam Date/Time: 09/06/2022 02:07 Procedure: XR PELVIS 1-2 VIEWS Ordering Provider: HUTSON RICHARD Reason For Exam: TRAUMA PELVIS: CLINICAL INDICATION: Pain, trauma. TECHNIQUE: AP. Technical note: Upper pelvis is excluded from the rtmtq-sy-etii. COMPARISON: None. FINDINGS: There is no evidence for fracture or dislocation. The hips joints are unremarkable. The imaged sacroiliac joints are normal. No bone lesion is identified. There is no soft tissue abnormality. Surgical clips project over the right groin. IMPRESSION: Upper pelvis is excluded from the oebni-kr-zhti. No fracture or dislocation of the imaged pelvis. Report Dictated on Electronically Signed By: Tiago Charles Electronically Signed Date/Time: 09/06/2022 2:12 AM EDT [facility] Radiology Study observation (narrative) [employer] XR Shoulder - left 2 Viewson 09-06-2022 No fracture or dislo cation. Report Dictated on Electronically Signed By: Tiago Charles Electronically Signed Date/Time: 09/06/2022 3:11 AM EDT [facility] Patient Name: PATSY MCFARLANE : 1950 [...] identified. There is no soft tissue abnormality. [facility] Tiago Charles MD - Patient [...] No fracture or dislocation. Report Dictated on Workstation: [employer] Electronically Signed By: Tiago Charles Electronically Signed Date/Time: 09/06/2022 3:11 AM EDT [facility] Radiology Study observation (narrative) [facility] XR Shoulder - right 2 Viewso n 09-06-2022 No fracture or dislo cation. Report Dictated on Electronically Signed By: Tiago Charles Electronically Signed Date/Time: 09/06/2022 2:42 AM EDT [facility] Patient Name: PATSY MCFARLANE : 1950 [...] identified. There is no soft tissue abnormality. [facility] Tiago Charles MD - Patient Name: [...] Electronically Signed Date/Time: 09/06/2022 2:42 AM EDT [facility] Radiology Study observation (narrative) [facility] CULTURE BLOODon 03-14-2022 Microscopic examination of blood, culture CULTURE BLOOD --> Status: F [facility] FilmArray testing is not routinely performed on Gram positive bacilli. If a Listeria infection is highly suspected, contact the Microbiology laboratory ([phone]). positive bacilli. If a Listeria infection is highly suspected, contact the Microbiology laboratory ([phone]). 1 Organism Propionibacterium acnes Isolated: Contamination likely unless additional blood culture sets are found to be positive with the same organism. Normal [facility] Comment on above: Performed By: #### C /BLD #### [facility] [address] [place] [address] CULTURE BLOOD (Two)on 2021 Microscopic examination of blood, culture CULTURE BLOOD (Two) --> Status: F No growth at 5 days. Normal [facility] Comment on above: Performed By: #### P T/AP, BMP3, HEMDF #### [facility] [address] [place] [address] GASTROINTESTINAL PCR PANELon 03-12-2022 GASTROINTESTINAL PCR PANEL GASTROINTESTINAL PCR PANEL --> Status: F NEGATIVE: No targets were detected by the [facility] Gastrointestinal PCR Panel. _ The Filter [employer] Gastrointestinal PCR Panel can detect the following [...] 40/41, Astrovirus, Norovirus GI/GII, Rotavirus A, Sapovirus Normal [facility] Comment on above: Performed By: #### B FGI #### [address] [address] Gastrointestinal Panel by CEDRICK [employer] [facility] [employer] [facility] 03-12-2022 Gastrointestinal PCR Panel NEGATIVE: No targets were detected by the [facility] G[facility]. _ The [employer] Gastrointestinal PCR Panel can detect the following targets: Campylobacter, Plesiomonas shigelloides, Salmonella, Vibrio species, Vibrio cholerae, Yersinia enterocolitica, Shiga toxin-producing E coli (STEC) including E coli O157, Enterotoxigenic E coli (ETEC), Shigella/Enteroinvasive E coli (EIEC), Cryptosporidium, Cyclospora cayetanensis, Entamoeba histolytica, Giardia lamblia, Adenovirus F 40/41, Astrovirus, Norovirus GI/GII, Rotavirus A, Sapovirus [facility] Test Performed by [facility], [address] [place] [id number] [place] [address] LAB [facility] Glucose,Bedsideon 03-12-2022 Glucose [Mass/Vol] 177 mg/dL High 70-100 [facility] Comment on above: Result Comment: Test performed by glucose meter. Results may be 10%-15% lower than serum/plasma values. (CLIA ID [id number]) Performed By: #### B GLU #### [facility] [address] [place] [address] Glucose [Mass/Vol] 130 mg/dL High 70-100 [facility] Comment on above: Result Comment: Test performed by glucose meter. Results may be 10%-15% lower than serum/plasma values. (CLIA ID [id number]) Performed By: #### B GLU #### [facility] [address] [place] [address] Glucose [Mass/Vol] 141 mg/dL High 70-100 [facility] Comment on above: Result Comment: Test performed by glucose meter. Results may be 10%-15% lower than serum/plasma values. (CLIA ID [id number]) Performed By: #### P T/AP, BMP3, HEMDF #### [facility] [address] [place] [address] Glucose [Mass/Vol] 120 mg/dL High 70-100 [facility] Comment on above: Result Comment: Test performed by glucose meter. Results may be 10%-15% lower than serum/plasma values. (CLIA ID [id number]) Performed By: #### B GLU #### [facility] [address] [place] [address] POCT GlucoseOrdered By: Hansel Connell on 03-12-2022 Glucose [Mass/Vol] 177 mg/dL High 70 - 100 mg/dL [facility] Work Phone: Comment on above: Test performed by gl ucose meter. Results may be 10%-15% lower than serum/plasma values. (CLIA ID [id number]) Interpretation and review of laboratory results Abnormal [facility] Work Phone: [facility] Work Phone: POCT Glucoseon 03-12-2022 Test Performed by [facility], [address] [place], [place] [address] [facility] LAB Glucose [Mass/Vol] 130 mg/dL High 70 - 100 mg/dL [facility] Comment on above: Test performed by gl ucose meter. Results may be 10%-15% lower than serum/plasma values. (CLIA ID [id number]) Interpretation and review of laboratory results Abnormal [facility] Test Performed by [facility], [address] LAB [facility] Glucose [Mass/Vol] 141 mg/dL High 70 - 100 mg/dL [facility] Comment on above: Test performed by gl ucose meter. Results may be 10%-15% lower than serum/plasma values. (CLIA ID [id number]) Interpretation and review of laboratory results Abnormal [facility] Test Performed by [facility], [address] LAB [facility] Glucose [Mass/Vol] 120 mg/dL High 70 - 100 mg/dL [facility] Work Phone: Comment on above: Test performed by gl ucose meter. Results may be 10%-15% lower than serum/plasma values. (CLIA ID [id number]) Interpretation and review of laboratory results Abnormal [facility] Work Phone: Test Performed by [facility], [address] LAB [facility] Work Phone: Prothrombin Timeon INR 3.6 High 0.9-1.1 [facility] Comment on above: Result Comment: Rajiv mmended [...] By: #### P T/AP, BMP3, HEMDF #### [facility] [address] [place] [address] PT Coag (PPP) [Time] 36.1 s High 9.0-12.0 [facility] Comment on above: Result Comment: . Performed By: #### P T/AP, BMP3, HEMDF #### [facility] [address] [place] [address] Protime-INRon 03-12-2022 INR Coag (Bld) [Relative time] 3.6 {INR} High [facility] Comment on above: Recommended Anticoag ulant Therapy: [...] Interpretation and review of laboratory results Abnormal [facility] PT Coag (PPP) [Time] 36.1 s High 9 - 12 s [facility] Comment on above: . Test Performed by [facility], [address] [place], [place] [id number] [place] [address] LAB [facility] Basic Metabolic Panelon 02-21 Anion gap [Moles/Vol] 1 mmol/L Low 3-13 [facility] Comment on above: Performed By: #### P T/AP, BMP3, HEMDF #### [facility] [address] [place] [address] Calcium [Mass/Vol] 8.1 mg/dL Low 8.4-10.4 [facility] Comment on above: Performed By: #### P T/AP, BMP3, HEMDF #### [facility] [address] [place] [address] CO2 [Moles/Vol] 30 mmol/L Normal 22-30 [facility] Comment on above: Performed By: #### P T/AP, BMP3, HEMDF #### [facility] [address] [place] [address] Creatinine [Mass/Vol] 0.70 mg/dL Normal 0.52-1.25 [facility] Comment on above: Performed By: #### P T/AP, BMP3, HEMDF #### [facility] [address] [place] [address] GFR/1.73 sq M.predicted among blacks MDRD (S/P/Bld) [Vol rate/Area] mL/min/{1.73_m2} Normal >60 [facility] Comment on above: Performed By: #### P T/AP, BMP3, HEMDF #### [facility] impok [facility] [address] [place] [address] GFR/1.73 sq M.predicted among non-blacks MDRD (S/P/Bld) [Vol rate/Area] 87.4 mL/min/{1.73_m2} Normal >60 [facility] Comment on above: Result Comment: KDIG O [...] By: #### P T/AP, BMP3, HEMDF #### [facility] impok [facility] [address] [place] [address] Glucose [Mass/Vol] 118 mg/dL High 70-100 [facility] Comment on above: Performed By: #### P T/AP, BMP3, HEMDF #### [facility] impok [facility] [address] [place] [address] Urea nitrogen [Mass/Vol] 8 mg/dL Low 9-20 [facility] Comment on above: Performed By: #### P T/AP, BMP3, HEMDF #### [facility] impok [facility] [address] [place] [address] Chloride [Moles/Vol] 106 mmol/L Normal 98-107 [facility] Comment on above: Performed By: #### P T/AP, BMP3, HEMDF #### [facility] impok [facility] [address] [place] [address] Potassium [Moles/Vol] 4.1 mmol/L Normal 3.5-5.1 [facility] Comment on above: Performed By: #### P T/AP, BMP3, HEMDF #### [facility] [address] [place] [address] Sodium [Moles/Vol] 137 mmol/L Normal 135-145 [facility] Comment on above: Performed By: #### P T/AP, BMP3, HEMDF #### [facility] [address] [place] [address] Anion gap [Moles/Vol] 1 mmol/L Low 3 - 13 mmol/L [facility] Calcium [Mass/Vol] 8.1 mg/dL Low 8.4 - 10. 4 mg/dL [facility] Chloride [Moles/Vol] 106 mmol/L 98 - 107 mmol/L [facility] CO2 [Moles/Vol] 30 mmol/L 22 - 30 mmol/L [facility] Creatinine [Mass/Vol] 0.7 mg/dL 0.52 - 1.25 mg/dL [facility] eGFR mL/min 60 - PINF mL/min [facility] EGFR IF NonAfrican Burkinan 87.4 mL/min 60 - PINF mL/min [facility] [...] - 20 mg/dL [facility] Test Performed by [facility], [address], [place], [place] [address] [facility] CBC with Auto Differentialon 03-11-2022 [...] - 10.7 10*3/uL [facility] Test Performed by [facility], [address], [place], [place] [address] [facility] CULTURE URINEon 03-11-2022 CULTURE URINE 1 Organism [...] 1 S Amikacin(NORMA) <= 2 S Normal [facility] Comment on above: Performed By: #### P T/AP, BMP3, HEMDF #### [facility] [address] [place] [address] Culture, Urineon 03-11-2022 Bacteria identified Cx Nom (U) Klebsiella pneumoniae ss. pneumoniae Abnormal [facility] Bacteria identified Cx Nom (U) >100,000 CFU/ml [facility] Interpretation and review of laboratory results Abnormal [facility] Test Performed by [facility], [facility] [place] [address] [facility] Glucose,Bedsideon 03-11-2022 Glucose [Mass/Vol] 140 mg/dL High 70-100 [facility] Comment on above: Result Comment: Test performed by glucose meter. Results may be 10%-15% lower than serum/plasma values. (CLIA ID [id number]) Performed By: #### P T/AP, BMP3, HEMDF #### [facility] [address] [place] [address] Glucose [Mass/Vol] 121 mg/dL [facility] [address] [facility] Comment on above: Result Comment: Test performed by glucose meter. Results may be 10%-15% lower than serum/plasma values. (CLIA ID [id number]) Performed By: #### P T/AP, BMP3, HEMDF #### [facility] [address] [place] [address] Glucose [Mass/Vol] 127 mg/dL [facility] [address] [facility] Comment on above: Result Comment: Test performed by glucose meter. Results may be 10%-15% lower than serum/plasma values. (CLIA ID [id number]) Performed By: #### P T/AP, BMP3, HEMDF #### [facility] [address] [place] [address] Glucose [Mass/Vol] 139 mg/dL [facility] [address] Comment on above: Result Comment: Test performed by glucose meter. Results may be 10%-15% lower than serum/plasma values. (CLIA ID [id number]) Performed By: #### P T/AP, BMP3, HEMDF #### [facility] [address] [place] [address] Hemogram w/ Autodiffon 03-11 Abs Baso Cnt 0.0 10*3/uL Normal 0.0-0.2 [facility] Comment on above: Performed By: #### P T/AP, BMP3, HEMDF #### [facility] [address] [place] [address] Abs Neutrophile Cnt 2.9 10*3/uL Normal 1.8-7.0 [facility] Comment on above: Performed By: #### P T/AP, BMP3, HEMDF #### [facility] [address] [place] [address] Basophils/100 WBC (Bld) 0.6 % Normal 0.0-2.0 [facility] Comment on above: Performed By: #### P T/AP, BMP3, HEMDF #### [facility] [address] [place] [address] Eosinophils (Bld) [#/Vol] 0.2 10*3/uL Normal 0.0-0.5 [facility] Comment on above: Performed By: #### P T/AP, BMP3, HEMDF #### [facility] [address] [place] [address] Eosinophils/100 WBC (Bld) 5.3 % Normal 1.0-6.0 [facility] Comment on above: Performed By: #### P T/AP, BMP3, HEMDF #### [facility] [address] [place] [address] Erythrocyte distribution width (RBC) [Ratio] 13.8 % Normal 11.5-14.5 [facility] Comment on above: Performed By: #### P T/AP, BMP3, HEMDF #### [facility] [address] [place] [address] Granulocytes/100 WBC (Bld) 62.2 % Normal 40.0-80.0 [facility] Comment on above: Performed By: #### P T/AP, BMP3, HEMDF #### [facility] [address] [place] [address] Hematocrit (Bld) [Volume fraction] 32.8 % Low 35.0-47.0 [facility] Comment on above: Performed By: #### P T/AP, BMP3, HEMDF #### [facility] [address] [place] [address] Hemoglobin (Bld) [Mass/Vol] 11.7 g/dL Normal 11.7-16.0 [facility] Comment on above: Performed By: #### P T/AP, BMP3, HEMDF #### [facility] [address] [place] [address] Lymphocytes (Bld) [#/Vol] 1.0 10*3/uL Normal 1.0-4.3 [facility] Comment on above: Performed By: #### P T/AP, BMP3, HEMDF #### [facility] [address] [place] [address] Lymphocytes/100 WBC (Bld) 22.5 % Normal 20.0-40.0 [facility] Comment on above: Performed By: #### P T/AP, BMP3, HEMDF #### [facility] [address] [place] [address] MCH (RBC) [Entitic mass] 32.1 pg Normal 26.0-34.0 [facility] Comment on above: Performed By: #### P T/AP, BMP3, HEMDF #### [facility] [address] [place] [address] MCHC 35.6 % Normal 32.0-36.0 [facility] Comment on above: Performed By: #### P T/AP, BMP3, HEMDF #### [facility] [address] [place] [address] MCV (RBC) [Entitic vol] 90.2 fL Normal 79.0-98.0 [facility] Comment on above: Performed By: #### P T/AP, BMP3, HEMDF #### [facility] [address] [place] [address] Monocytes (Bld) [#/Vol] 0.4 10*3/uL Normal 0.0-0.8 [facility] Comment on above: Performed By: #### P T/AP, BMP3, HEMDF #### [facility] [address] [place] [address] Monocytes/100 WBC (Bld) 9.4 % Normal 2.0-10.0 [facility] Comment on above: Performed By: #### P T/AP, BMP3, HEMDF #### [facility] [address] [place] [address] Platelet mean volume (Bld) [Entitic vol] 8.2 fL Normal 7.4-12.4 [facility] Comment on above: Result Comment: MPV is a calculated measurement using platelet volume ratio. Performed By: #### P T/AP, BMP3, HEMDF #### [facility] [address] [place] [address] Platelets (Bld) [#/Vol] 128 10*3/uL Low 140-440 [facility] Comment on above: Performed By: #### P T/AP, BMP3, HEMDF #### [facility] [address] [place] [address] RBC (Bld) [#/Vol] 3.63 10*6/uL Low 3.80-5.20 [facility] Comment on above: Performed By: #### P T/AP, BMP3, HEMDF #### [facility] [address] [place] [address] WBC (Bld) [#/Vol] 4.6 10*3/uL Normal 3.6-10.7 [facility] Comment on above: Performed By: #### P T/AP, BMP3, HEMDF #### [facility] [address] [place] [address] POCT COVID-19, Antigenon SARS-CoV-2 Nucleocapsid Antigen Negative Negative [facility] Comment on above: A negative result does not rule out the possibility of SARS-CoV-2 infection. NAAT-based methods should be considered for symptomatic patients presenting greater than seven days after onset of symptoms. Method: Lateral flow immunoassay. Fact sheets for healthcare providers and patients can be found at the following sites: https://www.fda.gov/media/826590/download https://www.fda.gov/media/154253/download Test Performed by [facility], [address] [place] [address] [facility] LAB [facility] POCT GlucoseOrdered By: Pedro Luis Mcleod on 03-11-2022 Glucose [Mass/Vol] 140 mg/dL High 70 - 100 mg/dL [facility] Comment on above: Test performed by gl ucose meter. Results may be 10%-15% lower than serum/plasma values. (CLIA ID [id number]) Interpretation and review of laboratory results Abnormal [facility] PO[facility] Glucoseon 03-11-2022 Test Performed by [facility], [address] LAB Glucose [Mass/Vol] 121 mg/dL High 70 - 100 mg/dL [facility] Work Phone: Comment on above: Test performed by gl ucose meter. Results may be 10%-15% lower than serum/plasma values. (CLIA ID [id number]) Interpretation and review of laboratory results Abnormal [facility] Work Phone: Test Performed by [facility], [address] LAB [facility] Work Phone: Test Performed by [facility], [address] LAB Glucose [Mass/Vol] 139 mg/dL High 70 - 100 mg/dL [facility] Work Phone: Comment on above: Test performed by gl ucose meter. Results may be 10%-15% lower than serum/plasma values. (CLIA ID [id number]) Interpretation and review of laboratory results Abnormal [facility] Work Phone: Test Performed by [facility], [address] LAB [facility] Work Phone: POCT GlucoseOrdered By: Mil Marie on 03-11-2022 Glucose [Mass/Vol] 127 mg/dL High 70 - 100 mg/dL [facility] Work Phone: Comment on above: Test performed by gl ucose meter. Results may be 10%-15% lower than serum/plasma values. (CLIA ID [id number]) Interpretation and review of laboratory results Abnormal [facility] Work Phone: [facility] Work Phone: PROTIME/INR & PTTon 03-11-20 22 INR Coag (Bld) [Relative time] 5.0 {INR} Critically high [facility] Comment on above: Recommended Anticoag ulant Therapy: [...] Interpretation and review of laboratory results Abnormal [facility] Test Performed by [facility], [address] [place], [place] [address] [facility] Protime AND APTTon 2 INR 5.0 Critically high 0.9-1.1 [facility] Comment on above: Result Comment: Rajiv mmended [...] By: #### P T/AP, BMP3, HEMDF #### [facility] [address] [place] [address] aPTT Coag (Bld) [Time] 44.1 s High 20.0-30.5 [facility] Comment on above: NOTE: The therapeuti c time for Heparin anticoagulation, based on Xa activity inhibition, is an APTT of 46-80 seconds. Result Comment: NOTE : The therapeutic time for Heparin anticoagulation, based on Xa activity inhibition, is an APTT of 46-80 seconds. Performed By: #### P T/AP, BMP3, HEMDF #### [facility] [address] [place] [address] PT Coag (PPP) [Time] 48.7 s High 9.0-12.0 [facility] Comment on above: . Result Comment: . Performed By: #### P T/AP, BMP3, HEMDF #### [facility] impok [facility] [address] [place] [address] SARS-CoV-2 Antigenon SARS-CoV-2 Antigen Negative Normal Negative [facility] Comment on above: Result Comment: A negative result does not rule out the possibility of SARS-CoV-2 infection. NAAT-based methods should be considered for symptomatic patients presenting greater than seven days after onset of symptoms. Method: Lateral flow immunoassay. Fact sheets for healthcare providers and patients can be found at the following sites: https://www.fda.gov/media/676926/download https://www.[employer].gov/media/066293/download Performed By: #### P T/AP, BMP3, HEMDF #### [facility] impok [facility] [address] [place] [address] Glucose,Bedsideon 03-10-2022 Glucose [Mass/Vol] 137 mg/dL High 70-100 [facility] Comment on above: Result Comment: Test performed by glucose meter. Results may be 10%-15% lower than serum/plasma values. (CLIA ID [id number]) Performed By: #### P T/AP, BMP3, HEMDF #### [facility] [address] [place] [address] Glucose [Mass/Vol] 98 mg/dL Normal 70-100 [facility] Comment on above: Result Comment: Test performed by glucose meter. Results may be 10%-15% lower than serum/plasma values. (CLIA ID [id number]) Performed By: #### P T/AP, BMP3, HEMDF #### [facility] [address] [place] [address] Glucose [Mass/Vol] 143 mg/dL High 70-100 [facility] Comment on above: Result Comment: Test performed by glucose meter. Results may be 10%-15% lower than serum/plasma values. (CLIA ID [id number]) Performed By: #### B GLU #### [facility] impok [facility] [address] [place] [address] Glucose [Mass/Vol] 170 mg/dL High 70-100 [facility] Comment on above: Result Comment: Test performed by glucose meter. Results may be 10%-15% lower than serum/plasma values. (CLIA ID [id number]) Performed By: #### B GLU #### [facility] [address] [place] [address] POCT GlucoseOrdered By: Tristin Mayers on 03-10-2022 Glucose [Mass/Vol] 137 mg/dL High 70 - 100 mg/dL [facility] Comment on above: Test performed by gl ucose meter. Results may be 10%-15% lower than serum/plasma values. (CLIA ID [id number]) Interpretation and review of laboratory results Abnormal [facility] POCT Glucoseon 03-10-2022 Test Performed by [facility], [address] LAB Glucose [Mass/Vol] 98 mg/dL 70 - 100 mg/dL [facility] Work Phone: Comment on above: Test performed by gl ucose meter. Results may be 10%-15% lower than serum/plasma values. (CLIA ID [id number]) Test Performed by [facility], [address] LAB [facility] Work Phone: Test Performed by [facility], [address] LAB Glucose [Mass/Vol] 170 mg/dL High 70 - 100 mg/dL [facility] Work Phone: Comment on above: Test performed by gl ucose meter. Results may be 10%-15% lower than serum/plasma values. (CLIA ID [id number]) Interpretation and review of laboratory results Abnormal [facility] Work Phone: Test Performed by [facility], [address] LAB [facility] Work Phone: [phone] POCT GlucoseOrdered By: Mil Benitez on 03-10-2022 Glucose [Mass/Vol] 143 mg/dL High 70 - 100 mg/dL [facility] Work Phone: Comment on above: Test performed by gl ucose meter. Results may be 10%-15% lower than serum/plasma values. (CLIA ID [id number]) Interpretation and review of laboratory results Abnormal [facility] Work Phone: [facility] Work Phone: PROTIME/INR & PTTon 03-10-20 22 aPTT Coag (Bld) [Time] 40.6 s High 20 - 30.5 s [facility] Comment on above: NOTE: The therapeuti c time for Heparin anticoagulation, based on Xa activity inhibition, is an APTT of 46-80 seconds. INR Coag (Bld) [Relative time] 3.4 {INR} High [facility] Comment on above: Recommended Anticoag ulant Therapy: [...] Interpretation and review of laboratory results Abnormal [facility] PT Coag (PPP) [Time] 34 s High 9 - 12 s [facility] Comment on above: . Test Performed by [facility], [address], [place], [place] [id number] [place] [address] LAB [facility] Protime AND APTTon 2 aPTT Coag (Bld) [Time] 40.6 s High 20.0-30.5 [facility] Comment on above: Result Comment: NOTE : The therapeutic time for Heparin anticoagulation, based on Xa activity inhibition, is an APTT of 46-80 seconds. Performed By: #### P T/AP, BMP3, HEMDF #### [facility] [address] [place] [address] INR 3.4 High 0.9-1.1 [facility] Comment on above: Result Comment: Rajiv mmended [...] By: #### P T/AP, BMP3, HEMDF #### [facility] [address] [place] [address] PT Coag (PPP) [Time] 34.0 s High 9.0-12.0 [facility] Comment on above: Result Comment: . Performed By: #### P T/AP, BMP3, HEMDF #### [facility] [address] [place] [address] Basic Metabolic Panelon 02-20-2021 Anion gap [Moles/Vol] 4 mmol/L Normal 3-13 [facility] Comment on above: Performed By: #### P T/AP, BMP3, HEMDF #### [facility] [address] [place] [address] Calcium [Mass/Vol] 7.7 mg/dL Low 8.4-10.4 [facility] Comment on above: Performed By: #### P T/AP, BMP3, HEMDF #### [facility] [address] [place] [address] CO2 [Moles/Vol] 25 mmol/L Normal 22-30 [facility] Comment on above: Performed By: #### P T/AP, BMP3, HEMDF #### [facility] [address] [place] [address] Glucose [Mass/Vol] 84 mg/dL Normal 70-100 [facility] Comment on above: Performed By: #### P T/AP, BMP3, HEMDF #### [facility] [address] [place] [address] Urea nitrogen [Mass/Vol] 14 mg/dL Normal 9-20 [facility] Comment on above: Performed By: #### P T/AP, BMP3, HEMDF #### [facility] [address] [place] [address] Creatinine [Mass/Vol] 0.85 mg/dL Normal 0.52-1.25 [facility] Comment on above: Performed By: #### P T/AP, BMP3, HEMDF #### [facility] [address] [place] [address] GFR/1.73 sq M.predicted among blacks MDRD (S/P/Bld) [Vol rate/Area] 80.1 mL/min/{1.73_m2} Normal >60 [facility] Comment on above: Performed By: #### P T/AP, BMP3, HEMDF #### [facility] [address] [place] [address] GFR/1.73 sq M.predicted among non-blacks MDRD (S/P/Bld) [Vol rate/Area] 69.1 mL/min/{1.73_m2} Normal >60 [facility] Comment on above: Result Comment: KDIG O [...] By: #### P T/AP, BMP3, HEMDF #### [facility] [address] [place] [address] Chloride [Moles/Vol] 106 mmol/L Normal 98-107 [facility] Comment on above: Performed By: #### P T/AP, BMP3, HEMDF #### [facility] [address] [place] [address] Potassium [Moles/Vol] 3.9 mmol/L Normal 3.5-5.1 [facility] Comment on above: Performed By: #### P T/AP, BMP3, HEMDF #### [facility] [address] [place] [address] Sodium [Moles/Vol] 135 mmol/L Normal 135-145 [facility] Comment on above: Performed By: #### P T/AP, BMP3, HEMDF #### [facility] [address] [place] [address] Basic Metabolic Panel w/ Ref uriel to MGon 03-09-2022 Anion gap [Moles/Vol] 4 mmol/L 3 - 13 mmol/L [facility] Calcium [Mass/Vol] 7.7 mg/dL Low 8.4 - 10. 4 mg/dL [facility] Chloride [Moles/Vol] 106 mmol/L 98 - 107 mmol/L [facility] CO2 [Moles/Vol] 25 mmol/L 22 - 30 mmol/L [facility] Creatinine [Mass/Vol] 0.85 mg/dL 0.52 - 1.25 mg/dL [facility] EGFR IF NonAfrican Burkinan 69.1 mL/min 60 - PINF mL/min [facility] Comment [...] [Mass/Vol] 84 mg/dL 70 - 100 mg/dL [facility] Interpretation and review of laboratory results Abnormal [facility] Potassium [Moles/Vol] 3.9 mmol/L 3.5 - 5.1 mmol/L [facility] Sodium [Moles/Vol] 135 mmol/L 135 - 145 mmol/L [facility] Urea nitrogen (BldV) [Mass/Vol] 14 mg/dL 9 - 20 mg/dL [facility] Test Performed by [facility], [address], [place], [place] [id number] [place] [address] LAB [facility] CBC with Auto Differentialon 03-09-2022 [...] 11.2 g/dL Low 11.7 - 16 g/dL [facility] Interpretation and review of laboratory results Abnormal [...] vol] 8.4 fL 7.4 - 12.4 fL [facility] Comment on above: MPV is a calculated measurement using platelet volume ratio. Platelets (Bld) [#/Vol] 102 10*3/uL Low 140 - 440 10*3/uL [facility] RBC (Bld) [#/Vol] 3.48 10*6/uL Low 3.8 - 5.2 10*6/uL [facility] WBC (Bld) [#/Vol] 5.5 10*3/uL 3.6 - 10.7 10*3/uL [facility] Test Performed by [facility], [address] [place], [place] [address] [facility] Glucose,Bedsideon 03-09-2022 Glucose [Mass/Vol] 186 mg/dL High [address] Comment on above: Result Comment: Test performed by glucose meter. Results may be 10%-15% lower than serum/plasma values. (CLIA ID [id number]) Performed By: #### P T/AP, BMP3, HEMDF #### [facility] [address] [place] [address] Glucose [Mass/Vol] 139 mg/dL High [address] Comment on above: Result Comment: Test performed by glucose meter. Results may be 10%-15% lower than serum/plasma values. (CLIA ID [id number]) Performed By: #### P T/AP, BMP3, HEMDF #### [facility] [address] [place] [address] Glucose [Mass/Vol] 160 mg/dL High [address] Comment on above: Result Comment: Test performed by glucose meter. Results may be 10%-15% lower than serum/plasma values. (CLIA ID [id number]) Performed By: #### P T/AP, BMP3, HEMDF #### [facility] [address] [place] [address] Glucose [Mass/Vol] 96 mg/dL Normal 70-[address] [place] [address] Comment on above: Result Comment: Test performed by glucose meter. Results may be 10%-15% lower than serum/plasma values. (CLIA ID [id number]) Performed By: #### B GLU #### [facility] [address] [place] [address] Hemoglobin A1Con 03-09-2022 Glucose [Mass/Vol] 151 mg/dL Normal [facility] Comment on above: Performed By: #### B GLU #### [facility] [address] [place] [address] HbA1c (Bld) [Mass fraction] 6.9 % Abnormal [facility] Comment on above: Result Comment: Norm al less than 5.7% Prediabetes 5.7% to 6.4% Diabetes 6.5% or higher --HgbA1C levels may not be accurate in patients who have renal disease, received recent blood transfusions, are anemic, or who have dyshemoglobinemia. Performed By: #### B GLU #### [facility] [address] [place] [address] Hemoglobin A1con 03-09-2022 HbA1c (Bld) [Mass fraction] 6.9 % Abnormal [facility] Comment on above: Normal less than 5.7 % Prediabetes 5.7% to 6.4% Diabetes 6.5% or higher --HgbA1C levels may not be accurate in patients who have renal disease, received recent blood transfusions, are anemic, or who have dyshemoglobinemia. Interpretation and review of laboratory results Abnormal [facility] Magnesium [Mass/Vol] 151 mg/dL [facility] Test Performed by [facility], [address] [place], [place] [id number] [place] [address] LAB [facility] Hemogram w/ Autodiffon 03-09 Abs Baso Cnt 0.0 10*3/uL Normal 0.0-0.2 [facility] Comment on above: Performed By: #### P T/AP, BMP3, HEMDF #### [facility] [address] [place] [address] Abs Neutrophile Cnt 4.1 10*3/uL Normal 1.8-7.0 [facility] Comment on above: Performed By: #### P T/AP, BMP3, HEMDF #### [facility] [address] [place] [address] Basophils/100 WBC (Bld) 0.6 % Normal 0.0-2.0 [facility] Comment on above: Performed By: #### P T/AP, BMP3, HEMDF #### [facility] [address] [place] [address] Eosinophils (Bld) [#/Vol] 0.1 10*3/uL Normal 0.0-0.5 [facility] Comment on above: Performed By: #### P T/AP, BMP3, HEMDF #### [facility] [address] [place] [address] Eosinophils/100 WBC (Bld) 1.6 % Normal 1.0-6.0 [facility] Comment on above: Performed By: #### P T/AP, BMP3, HEMDF #### [facility] [address] [place] [address] Erythrocyte distribution width (RBC) [Ratio] 13.9 % Normal 11.5-14.5 [facility] Comment on above: Performed By: #### P T/AP, BMP3, HEMDF #### [facility] [address] [place] [address] Granulocytes/100 WBC (Bld) 74.6 % Normal 40.0-80.0 [facility] Comment on above: Performed By: #### P T/AP, BMP3, HEMDF #### [facility] [address] [place] [address] Hematocrit (Bld) [Volume fraction] 31.8 % Low 35.0-47.0 [facility] Comment on above: Performed By: #### P T/AP, BMP3, HEMDF #### [facility] [address] [place] [address] Hemoglobin (Bld) [Mass/Vol] 11.2 g/dL Low 11.7-16.0 [facility] Comment on above: Performed By: #### P T/AP, BMP3, HEMDF #### [facility] [address] [place] [address] Lymphocytes (Bld) [#/Vol] 0.9 10*3/uL Low 1.0-4.3 [facility] Comment on above: Performed By: #### P T/AP, BMP3, HEMDF #### [facility] [address] [place] [address] Lymphocytes/100 WBC (Bld) 16.3 % Low 20.0-40.0 [facility] Comment on above: Performed By: #### P T/AP, BMP3, HEMDF #### [facility] [address] [place] [address] MCH (RBC) [Entitic mass] 32.2 pg Normal 26.0-34.0 [facility] Comment on above: Performed By: #### P T/AP, BMP3, HEMDF #### [facility] [address] [place] [address] MCHC 35.2 % Normal 32.0-36.0 [facility] Comment on above: Performed By: #### P T/AP, BMP3, HEMDF #### [facility] [address] [place] [address] MCV (RBC) [Entitic vol] 91.4 fL Normal 79.0-98.0 [facility] Comment on above: Performed By: #### P T/AP, BMP3, HEMDF #### [facility] [address] [place] [address] Monocytes (Bld) [#/Vol] 0.4 10*3/uL Normal 0.0-0.8 [facility] Comment on above: Performed By: #### P T/AP, BMP3, HEMDF #### [facility] [address] [place] [address] Monocytes/100 WBC (Bld) 6.9 % Normal 2.0-10.0 [facility] Comment on above: Performed By: #### P T/AP, BMP3, HEMDF #### [facility] [address] [place] [address] Platelet mean volume (Bld) [Entitic vol] 8.4 fL Normal 7.4-12.4 [facility] Comment on above: Result Comment: MPV is a calculated measurement using platelet volume ratio. Performed By: #### P T/AP, BMP3, HEMDF #### [facility] [address] [place] [address] Platelets (Bld) [#/Vol] 102 10*3/uL Low 140-440 [facility] Comment on above: Performed By: #### P T/AP, BMP3, HEMDF #### [facility] [address] [place] [address] RBC (Bld) [#/Vol] 3.48 10*6/uL Low 3.80-5.20 [facility] Comment on above: Performed By: #### P T/AP, BMP3, HEMDF #### [facility] [address] [place] [address] WBC (Bld) [#/Vol] 5.5 10*3/uL Normal 3.6-10.7 [facility] Comment on above: Performed By: #### P T/AP, BMP3, HEMDF #### [facility] [address] [place] [address] POCT GlucoseOrdered By: Blayne Villalobos on 03-09-2022 Glucose [Mass/Vol] 186 mg/dL High 70 - 100 mg/dL [facility] Work Phone: Comment on above: Test performed by gl ucose meter. Results may be 10%-15% lower than serum/plasma values. (CLIA ID [id number]) Interpretation and review of laboratory results Abnormal [facility] Work Phone: [facility] Work Phone: POCT Glucoseon 03-09-2022 Test Performed by [facility], [address] LAB Glucose [Mass/Vol] 139 mg/dL High 70 - 100 mg/dL [facility] Work Phone: Comment on above: Test performed by gl ucose meter. Results may be 10%-15% lower than serum/plasma values. (CLIA ID [id number]) Interpretation and review of laboratory results Abnormal [facility] Work Phone: Test Performed by [facility], [address] [facility] Work Phone: Test Performed by [facility], [address], [address] LAB Glucose [Mass/Vol] 96 mg/dL 70 - 100 mg/dL [facility] Work Phone: Comment on above: Test performed by gl ucose meter. Results may be 10%-15% lower than serum/plasma values. (CLIA ID [id number]) Test Performed by [facility], [address], [address] LAB [facility] Work Phone: POCT GlucoseOrdered By: Ines Choi on 03-09-2022 Glucose [Mass/Vol] 160 mg/dL High 70 - 100 mg/dL [facility] Comment on above: Test performed by gl ucose meter. Results may be 10%-15% lower than serum/plasma values. (CLIA ID [id number]) Interpretation and review of laboratory results Abnormal [facility] PROTIME/INR & PTTon 03-09-20 22 aPTT Coag (Bld) [Time] 40.6 s High 20 - 30.5 s [facility] Comment on above: NOTE: The therapeuti c time for Heparin anticoagulation, based on Xa activity inhibition, is an APTT of 46-80 seconds. INR Coag (Bld) [Relative time] 2.4 {INR} High [facility] Comment on above: Recommended [...] results Abnormal [facility] PT Coag (PPP) [Time] 24.5 s High 9 - 12 s [facility] Comment on above: . Test Performed by [facility], [address], [address] LAB [facility] Protime AND APTTon 09-18-202 2 aPTT Coag (Bld) [Time] 40.6 s High 20.0-30.5 [facility] Comment on above: Result Comment: NOTE : The therapeutic time for Heparin anticoagulation, based on Xa activity inhibition, is an APTT of 46-80 seconds. Performed By: #### P T/AP BMP3, HEMDF #### [facility] [address] [place] [address] INR 2.4 High 0.9-1.1 [facility] Comment on above: Result Comment: Rajiv mmended [...] prevent Myocardial Infarction Performed By: #### P T/AP BMP3, HEMDF #### [address] [place] [address] PT Coag (PPP) [Time] 24.5 s High 9.0-12.0 [facility] Comment on above: Result Comment: . Performed By: #### P T/AP BMP3, HEMDF #### [address] [place] [address] TSHon 03-09-2022 TSH Qn 3.493 u[IU]/mL 0.465 - 4.68 u[IU]/mL [facility] Test Performed by [facility], [address] [place] [id number] [place] [address] LAB [facility] Thyroid Stim. Hormoneon 02-20 Thyroid Stim. Hormone 3.493 u[IU]/mL Normal 0.465-4.68 0 [facility] Comment on above: Performed By: #### B GLU #### [address] [place] [address] Vancomycinon 03-09-2022 Vancomycin 12.3 ug/mL Low 15.0-20.0 [facility] Comment on above: Result Comment: . Performed By: #### P T/AP, BMP3, HEMDF #### [facility] [address] [place] [address] Vancomycin Level, Randomon 0 03-09-2022 Interpretation and review of laboratory results Abnormal [facility] Vancomycin 12.3 ug/mL Low 15 - 20 ug/mL [facility] Comment on above: . Test Performed by [facility], [address] [place] [address] [facility] LAB [facility] Basic Metabolic Panelon 09- Anion gap [Moles/Vol] 4 mmol/L Normal 3-13 [facility] Comment on above: Performed By: #### P T/AP, BMP3, HEMDF #### [facility] [address] [place] [address] Calcium [Mass/Vol] 8.4 mg/dL Normal 8.4-10.4 [facility] Comment on above: Performed By: #### P T/AP, BMP3, HEMDF #### [facility] [address] [place] [address] CO2 [Moles/Vol] 27 mmol/L Normal 22-30 [facility] Comment on above: Performed By: #### P T/AP, BMP3, HEMDF #### [facility] [address] [place] [address] Creatinine [Mass/Vol] 0.95 mg/dL Normal 0.52-1.25 [facility] Comment on above: Performed By: #### P T/AP, BMP3, HEMDF #### [facility] [address] [place] [address] GFR/1.73 sq M.predicted among blacks MDRD (S/P/Bld) [Vol rate/Area] 70.0 mL/min/{1.73_m2} Normal >60 [facility] Comment on above: Performed By: #### P T/AP, BMP3, HEMDF #### [facility] [address] [place] [address] GFR/1.73 sq M.predicted among non-blacks MDRD (S/P/Bld) [Vol rate/Area] 60.4 mL/min/{1.73_m2} Normal >60 [facility] Comment on above: Result Comment: KDIG O [...] By: #### P T/AP, BMP3, HEMDF #### [facility] [address] [place] [address] Glucose [Mass/Vol] 117 mg/dL High 70-100 [facility] Comment on above: Performed By: #### P T/AP, BMP3, HEMDF #### [facility] impok [facility] [address] [place] [address] Urea nitrogen [Mass/Vol] 16 mg/dL Normal 9-20 [facility] Comment on above: Performed By: #### P T/AP, BMP3, HEMDF #### [facility] [address] [place] [address] Chloride [Moles/Vol] 102 mmol/L Normal 98-107 [facility] Comment on above: Performed By: #### P T/AP, BMP3, HEMDF #### [facility] [address] [place] [address] Potassium [Moles/Vol] 4.5 mmol/L Normal 3.5-5.1 [facility] Comment on above: Performed By: #### P T/AP, BMP3, HEMDF #### [facility] impok [facility] [address] [place] [address] Sodium [Moles/Vol] 133 mmol/L Low 135-145 [facility] Comment on above: Performed By: #### P T/AP, BMP3, HEMDF #### [facility] impok [facility] [address] [place] [address] Anion gap [Moles/Vol] 4 mmol/L 3 - 13 mmol/L [facility] Calcium [Mass/Vol] 8.4 mg/dL 8.4 - 10. 4 mg/dL [facility] Chloride [Moles/Vol] 102 mmol/L 98 - 107 mmol/L [facility] CO2 [Moles/Vol] 27 mmol/L 22 - 30 mmol/L [facility] Creatinine [Mass/Vol] 0.95 mg/dL 0.52 - 1.25 mg/dL [facility] EGFR IF NonAfrican Burkinan 60.4 mL/min 60 - PINF mL/min [facility] Comment [...] - 20 mg/dL [facility] Test Performed by [facility] impok [facility], [address], [place], [place] [address] [facility] CBC with Auto Differentialon 03-08-2022 [...] [#/Vol] 8.7 10*3/uL 3.6 - 10.7 10*3/uL [facility] Test Performed by [facility], [address] [place], [place], [place] [id number] [place] [address] LAB [facility] CR Ankle 3+ Views Lefton CR Ankle 3+ Views Left Patient Name: RANDOLPH HUNTER Diagnostic Radiology ACCESSION EXAM DATE/TIME PROCEDURE ORDERING PROVIDER [id number] 03/08/2022 16:53 EDT CR Ankle 3+ Views Left JOHN LEZAMA LOUANN B CPT code 66218 Reason For Exam (CR Ankle 3+ Views [...] arterial atherosclerotic changes. Report Dictated on Workstation: [email or web address] Final Dictating Physician: HARPER ANTONIO DO, I Signed Date and Time: 03/08/2022 5:15 pm Signed by: HARPER ANTONIO DO, I Transcribed Date and Time: 03/08/2022 5:16 Normal [facility] Complete Urinalysison 2021 Appearance (U) Turbid Abnormal Clear [facility] Comment on above: Result Comment: . Performed By: #### P T/AP, BMP3, HEMDF #### [facility] [address] [place] [address] Bacteria Loaded Abnormal Negative [facility] Comment on above: Result Comment: . Performed By: #### P T/AP, BMP3, HEMDF #### [facility] [address] [place] [address] Bilirubin,Urine Negative Normal Negative [facility] Comment on above: Result Comment: . Performed By: #### P T/AP, BMP3, HEMDF #### [facility] [address] [place] [address] Color (U) Light-Yellow Normal Lt. Yellow [facility] Comment on above: Result Comment: . Performed By: #### P T/AP, BMP3, HEMDF #### [facility] [address] [place] [address] Glucose Ql (U) Normal Normal Normal (<70) [facility] Comment on above: Result Comment: . Performed By: #### P T/AP, BMP3, HEMDF #### [facility] [address] [place] [address] Ketone,Urine Negative Normal Negative [facility] Comment on above: Result Comment: . Performed By: #### P T/AP, BMP3, HEMDF #### [facility] [address] [place] [address] Leukocytes,Urine 500 Elvi/uL Abnormal Negative [facility] Comment on above: Result Comment: . Performed By: #### P T/AP, BMP3, HEMDF #### [facility] [address] [place] [address] Mucous Threads Few Normal Negative [facility] Comment on above: Result Comment: . Performed By: #### P T/AP, BMP3, HEMDF #### [facility] [address] [place] [address] Nitrites,Urine Positive Abnormal Negative [facility] Comment on above: Result Comment: . Performed By: #### P T/AP, BMP3, HEMDF #### [facility] [address] [place] [address] Non-Squamous Epithelial < 1 Abnormal Negative [facility] Comment on above: Result Comment: . Performed By: #### P T/AP, BMP3, HEMDF #### [facility] [address] [place] [address] Occult Blood,Urine 0.06 mg/dL Abnormal Negative [facility] Comment on above: Result Comment: . Performed By: #### P T/AP, BMP3, HEMDF #### [facility] [address] [place] [address] pH,Urine 6.0 Normal 5.0-8.0 [facility] Comment on above: Result Comment: . Performed By: #### P T/AP, BMP3, HEMDF #### [facility] [address] [place] [address] Protein (U) [Mass/Vol] 20 mg/dL Abnormal Negative [facility] impok [facility] Comment on above: Result Comment: . Performed By: #### P T/AP, BMP3, HEMDF #### [facility] impok [facility] [address] [place] [address] RBC, Urine 3 - 5 Abnormal 0-2 [facility] Comment on above: Result Comment: . Performed By: #### P T/AP, BMP3, HEMDF #### [facility] impok [facility] [address] [place] [address] Specific Christoval,Urine 1.014 Normal 1.005 - 1.030 [facility] impok [facility] Comment on above: Result Comment: . Performed By: #### P T/AP, BMP3, HEMDF #### [facility] impok [facility] [address] [place] [address] Squamous Epithelial 0 - 2 Normal 3-5 [facility] Comment on above: Result Comment: . Performed By: #### P T/AP, BMP3, HEMDF #### [facility] impok [facility] [address] [place] [address] Urobilinogen,Urine Normal Normal Normal (0-1) [facility] Comment on above: Result Comment: . Performed By: #### P T/AP, BMP3, HEMDF #### [facility] impok [facility] [address] [place] [address] WBC, Urine 51 - 100 Abnormal 0-5 [facility] Comment on above: Result Comment: . Performed By: #### P T/AP, BMP3, HEMDF #### [facility] impok [facility] [address] [place] [address] ED Provider Noteon 2 ED Provider Note SHB 1E MED SURG [...] she did have a fall at her halfway this morning but did not hit her [...] mouth daily CALCIUM CARBONATE 600MG W/ VITAMIN [id number] Med cyanocobalamin 1000 MCG/ML injection Inject 1,000 mcg into the muscle every 30 days Historical Med fluticasone (FLONASE) 50 MCG/ACT nasal spray [...] nightlyHistorical Med Cholecalciferol (VITAMIN D3) 50 MCG (1999 [place]) CAPS Take by mouthHistorical Med warfarin [...] use: Never Sexual activity: Not Currently SCREENINGS [place] Coma Scale Eye Opening: Spontaneous Best Verbal Response: Oriented Best Motor Response: Obeys commands [place] Coma Scale Score: 15 PHYSICAL EXAM (up [...] Exam Kaycee (more content not included)... Normal [facility] Glucose,Bedsideon 03-08-2022 Glucose [Mass/Vol] 112 mg/dL High 70-100 [facility] Comment on above: Result Comment: Test performed by glucose meter. Results may be 10%-15% lower than serum/plasma values. (CLIA ID [id number]) Performed By: #### P T/AP, BMP3, HEMDF #### [facility] [address] [place] [address] Glucose [Mass/Vol] 81 mg/dL Normal 70-100 [facility] Comment on above: Result Comment: Test performed by glucose meter. Results may be 10%-15% lower than serum/plasma values. (CLIA ID [id number]) Performed By: #### P T/AP, BMP3, HEMDF #### [facility] [address] [place] [address] Hemogram w/ Autodiffon 03-08 Abs Baso Cnt 0.0 10*3/uL Normal 0.0-0.2 [facility] Comment on above: Performed By: #### P T/AP, BMP3, HEMDF #### [facility] [address] [place] [address] Abs Neutrophile Cnt 7.5 10*3/uL High 1.8-7.0 [facility] Comment on above: Performed By: #### P T/AP, BMP3, HEMDF #### [facility] [address] [place] [address] Basophils/100 WBC (Bld) 0.1 % Normal 0.0-2.0 [facility] Comment on above: Performed By: #### P T/AP, BMP3, HEMDF #### [facility] [address] [place] [address] Eosinophils (Bld) [#/Vol] 0.0 10*3/uL Normal 0.0-0.5 [facility] Comment on above: Performed By: #### P T/AP, BMP3, HEMDF #### [facility] [address] [place] [address] Eosinophils/100 WBC (Bld) 0.2 % Low 1.0-6.0 [facility] Comment on above: Performed By: #### P T/AP, BMP3, HEMDF #### [facility] [address] [place] [address] Erythrocyte distribution width (RBC) [Ratio] 14.1 % Normal 11.5-14.5 [facility] Comment on above: Performed By: #### P T/AP, BMP3, HEMDF #### [facility] [address] [place] [address] Granulocytes/100 WBC (Bld) 86.4 % High 40.0-80.0 [facility] Comment on above: Performed By: #### P T/AP, BMP3, HEMDF #### [facility] [address] [place] [address] Hematocrit (Bld) [Volume fraction] 36.9 % Normal 35.0-47.0 [facility] Comment on above: Performed By: #### P T/AP, BMP3, HEMDF #### [facility] [address] [place] [address] Hemoglobin (Bld) [Mass/Vol] 12.6 g/dL Normal 11.7-16.0 [facility] Comment on above: Performed By: #### P T/AP, BMP3, HEMDF #### [facility] [address] [place] [address] Lymphocytes (Bld) [#/Vol] 0.7 10*3/uL Low 1.0-4.3 [facility] Comment on above: Performed By: #### P T/AP, BMP3, HEMDF #### [facility] [address] [place] [address] Lymphocytes/100 WBC (Bld) 8.3 % Low 20.0-40.0 [facility] Comment on above: Performed By: #### P T/AP, BMP3, HEMDF #### [facility] [address] [place] [address] MCH (RBC) [Entitic mass] 31.9 pg Normal 26.0-34.0 [facility] Comment on above: Performed By: #### P T/AP, BMP3, HEMDF #### [facility] [address] [place] [address] MCHC 34.3 % Normal 32.0-36.0 [facility] Comment on above: Performed By: #### P T/AP, BMP3, HEMDF #### [facility] [address] [place] [address] MCV (RBC) [Entitic vol] 93.2 fL Normal 79.0-98.0 [facility] Comment on above: Performed By: #### P T/AP, BMP3, HEMDF #### [facility] [address] [place] [address] Monocytes (Bld) [#/Vol] 0.4 10*3/uL Normal 0.0-0.8 [facility] Comment on above: Performed By: #### P T/AP, BMP3, HEMDF #### [facility] [address] [place] [address] Monocytes/100 WBC (Bld) 5.0 % Normal 2.0-10.0 [facility] Comment on above: Performed By: #### P T/AP, BMP3, HEMDF #### [facility] [address] [place] [address] Platelet mean volume (Bld) [Entitic vol] 8.9 fL Normal 7.4-12.4 [facility] Comment on above: Result Comment: MPV is a calculated measurement using platelet volume ratio. Performed By: #### P T/AP, BMP3, HEMDF #### [facility] [address] [place] [address] Platelets (Bld) [#/Vol] 132 10*3/uL Low 140-440 [facility] Comment on above: Performed By: #### P T/AP, BMP3, HEMDF #### [facility] [address] [place] [address] RBC (Bld) [#/Vol] 3.96 10*6/uL Normal 3.80-5.20 [facility] Comment on above: Performed By: #### P T/AP, BMP3, HEMDF #### [facility] [address] [place] [address] WBC (Bld) [#/Vol] 8.7 10*3/uL Normal 3.6-10.7 [facility] Comment on above: Performed By: #### P T/AP, BMP3, HEMDF #### [facility] [address] [place] [address] Lactate, Sepsison 03-08-2022 Lactate [Moles/Vol] 1.7 mmol/L 0.7 - 2 mmol/L [facility] by [facility], [address] [place], [place] [id number] [place] [address] LAB [facility] Lactic Acid, Sepsison 2021 Lactate [Moles/Vol] 1.7 mmol/L Normal 0.7-2.0 [facility] Comment on above: Performed By: #### P T/AP, BMP3, HEMDF #### [facility] [address] [place] [address] POCT GlucoseOrdered By: Jossy Moncada on 03-08-2022 Glucose [Mass/Vol] 112 mg/dL High 70 - 100 mg/dL [facility] Work Phone: Comment on above: Test performed by gl ucose meter. Results may be 10%-15% lower than serum/plasma values. (CLIA ID [id number]) Interpretation and review of laboratory results Abnormal [facility] Work Phone: [facility] Work Phone: POCT Glucoseon 03-08-2022 Test Performed by [facility], [address] [place], [place] [id number] [place] [address] LAB Test Performed by [facility], [address] [place], [place] [address] [place] [address] LAB POCT GlucoseOrdered By: Yaakov Whitehead on 03-08-2022 Glucose [Mass/Vol] 81 mg/dL 70 - 100 mg/dL [facility] Work Phone: Comment on above: Test performed by gl ucose meter. Results may be 10%-15% lower than serum/plasma values. (CLIA ID [id number]) [facility] Work Phone: Prothrombin Timeon 2 INR 2.3 High 0.9-1.1 [facility] Comment on above: Result Comment: Rajiv mmended [...] By: #### P T/AP, BMP3, HEMDF #### [facility] [address] [place] [address] PT Coag (PPP) [Time] 23.8 s High 9.0-12.0 [facility] Comment on above: Result Comment: . Performed By: #### P T/AP, BMP3, HEMDF #### [facility] [address] [place] [address] Protime-INRon 03-08-2022 INR Coag (Bld) [Relative time] 2.3 {INR} High [facility] Comment on above: Recommended Anticoag ulant Therapy: [...] Interpretation and review of laboratory results Abnormal [facility] PT Coag (PPP) [Time] 23.8 s High 9 - 12 s [facility] Comment on above: . Test Performed by [facility], [address], [place], [place] [address] [facility] LAB [facility] Urinalysison 03-08-2022 Appearance (U) Turbid Abnormal Clear [...] /[HPF] [facility] Comment on above: . Specific Christoval, Urine 1.014 [facility] Comment on above: . Squam Epithel, UA 0-2 3 - 5 /[HPF] [facility] Comment on above: . Urobilinogen, Urine Normal Normal (0-1) mg/dL [facility] Comment on above: . WBC, UA /[HPF] Abnormal 0 - 5 /[HPF] [facility] Comment on above: . Test Performed by [facility], [address] [place], [place] [id number] [place] [address] LAB [facility] XR ANKLE LEFT (MIN 3 VIEWS)o n 03-08-2022 Patient Name: RANDOLPH HUNTER Diagnostic Radiology ACCESSION EXAM DATE/TIME PROCEDURE ORDERING PROVIDER [id number] 03/08/2022 16:53 EDT CR Ankle 3+ Views Left JOHN LEZAMA LOUANN B CPT code 00089 Reason For Exam (CR Ankle 3+ Views [...] I Transcribed Date and Time: 03/08/2022 5:16 Harper Patel DO - 03/08/2022 Patient Name: RANDOLPH HUNTER Diagnostic Radiology ACCESSION EXAM DATE/TIME PROCEDURE ORDERING PROVIDER [id number] 03/08/2022 16:53 EDT CR Ankle 3+ Views Left JOHN LEZAMA LOUANN B CPT code 83022 Reason For Exam (CR Ankle 3+ Views [...] I Transcribed Date and Time: 03/08/2022 5:16 [facility] Work Phone: Radiology Study observation (narrative) [facility] Work Phone: XR ANKLE LEFT (MIN 3 VIEWS)O rdered By: Harper Antonio on 03-08-2022 [facility] Work Phone: PT panel Coag (PPP)on 2021 INR Coag (Bld) [Relative time] 2.3 (EXT) 2.0 - 3.0 [facility] INRon 10-29-2021 INR Coag (Bld) [Relative time] [facility] PT panel Coag (PPP)on 2021 INR Coag (Bld) [Relative time] 2.1 {INR} [facility] DXA-AXIAL SKELETONon 022 [facility] PT panel Coag (PPP)on 2021 INR Coag (Bld) [Relative time] 2.1(EXT) 2.0 - 3.0 [facility] PT panel Coag (PPP)on 2021 INR Coag (Bld) [Relative time] 2.6(EXT) 2.0 - 3.0 [facility] PT panel Coag (PPP)on 2021 INR Coag (Bld) [Relative time] 2.2 (ext) [facility] Basophil percentageon 2021 Bilirubin [Mass/Vol] 0.40 mg/dL 0.20-1.00 [facility] Work Phone: Comment on above: For patients on eltr ombopag therapy, use of Dimension Broussard TBIL is not recommended. Cholesterol [Mass/Vol] 142 mg/dL <200 [facility] Comment on above: <200 mg/dL Desirable 200-240 mg/dL Borderline >240 mg/dL High Risk Protein [Mass/Vol] 7.5 g/dL 6.4-8.2 [facility] Work Phone: Triglyceride [Mass/Vol] 156 mg/dL [facility] Comment on above: The drugs N-Acetylcy steine and Metamizole may falsely depress this assay.Serum Triglycerides Reference Interval Normal <150 mg/dL Borderline high 150 - 199 mg/dL High 200 - 499 mg/dL Very High > or = 500 mg/dL Direct bilirubinon Bilirubin.direct [Mass/Vol] 0.12 mg/dL 0.00-0.30 [facility] Work Phone: LIPID PANEL (EXTERNAL)on HDC-L 41 mg/dL 41 mg/dL [facility] LDL Chol, calculated 31 MG/DL 130 MG/DL [facility] Laboratory - Chemistry and C hemistry - challengeon 09-16-2021 ALP [Catalytic activity/Vol] 58 U/L 45-117 [facility] Work Phone: ALT [Catalytic activity/Vol] 18 U/L 13-56 [facility] Work Phone: Globulin (S) [Mass/Vol] 4.1 g/dL 2.2-4.2 [facility] Work Phone: MICROALBUMIN/CREATININE UR W RATIO (EXTERNAL)on 09-16-2021 Albumin/Creat Ratio 9.4 [facility] Creatinine Urine 158 [facility] Microalbumin, Random urine 14.9 [facility] No Panel Informationon 09-16 Urine Microalbumin/Creati nine Ratio 9.4 mg/g CRE <30 [facility] Work Phone: Serum or plasma albumin aura urement (mass/volume)on 09-16-2021 Albumin [Mass/Vol] 3.4 g/dL 3.2-5.0 [facility] Work Phone: Serum or plasma cholesterol in HDL measurement (mass/volume)on 09-16-2021 Cholesterol in HDL [Mass/Vol] 41 mg/dL [facility] Work Phone: Comment on above: The drugs N-Acetylcy steine and Metamizole may falsely depress this assay. Reference Range HDL <40 mg/dL Low HDL Cholesterol HDL >or= 60 mg/dL High HDL Cholesterol Serum or plasma cholesterol in VLDL measurement (mass/volume)on 09-16-2021 Cholesterol in VLDL [Mass/Vol] 31 mg/dL 5-40 [facility] Work Phone: Serum or plasma low density lipoprotein (LDL) cholesterol measurement (mass/volume)on 09-16-2021 Cholesterol in LDL [Mass/Vol] 70 mg/dL 0-130 [facility] Work Phone: Thin prep Papanicolaou smear with manual screeningon 09-16-2021 Thin prep Papanicolaou smear with manual screening 22 U/L 15-37 [facility] Work Phone: Thin prep Papanicolaou smear with manual screening 14.9 mg/L NO RANGE EST. [facility] Work Phone: Urine creatinine measurement (mass/volume)on 09-16-2021 Creatinine (U) [Mass/Vol] 158.00 mg/dL NO RANGE EST. [facility] Work Phone: PT panel Coag (PPP)on 2021 INR Coag (Bld) [Relative time] 1.9 (EXT) 2.0 - 3.0 [facility] XR Shoulder - right 3 Viewso n 01-29-2021 IMPRESSION: 1. Stable mild acromioclavicular degenerative changes. Snuff Grinder: [facility] Transcribe Date/Time: Jan 29 2021 2:19P Dictated [...] mild hypertrophic osteoarthrosis. DIVISION OF RADIOLOGY Provider, [facility] - 01/29/2021 * * *Final Report* * [...] IMPRESSION: 1. Stable mild acromioclavicular degenerative changes. Snuff Grinder: [facility] Transcribe Date/Time: Jan 29 2021 2:19P Dictated by : MIN GARCIA MD This examination was interpreted and the report reviewed and electronically signed by: MIN GARCIA MD on Jan 29 2021 2:21PM EST [facility] Radiology Study observation (narrative) [facility] XR Shoulder - right 3 ViewsO rdered By: [facility] Provider on 01-29-2021 [facility] CNOVon 08-12-2017 CNOV Office Visit (AGCARDWST) -RANDOLPH HUNTER ([id number]) 1950 FDate Time Provider Department08/12/17 1:00 PM [...] - metBeta nisha for ASHD with prior [place] or prior LVEFANDlt;40 (NQF 0070) - metBeta nisha for HF with prior LVEFANDlt;40 (NQF 0083) - metACE-I or ARB for ASHD with DM or prior LVEFANDlt;40 (NQF 0066) - metStatin therapy for ASHD or FHL or DM - declinedBMI documented and plan if ANDgt;25 (NQF 0421) - lifestyle recommendation formTobacco use screening and referral (NQF 0028) - lifestyle recommendation formRecommendation for whole [...] with treatment plan.This note was generated using [employer] recognition system, and there may besome incorrect [...] to increased doses of metoprolol.Electronically Signed:David Erwin MDFeuary 2017 1:17 [facility] Vishnu Lin Coleman MD 08/12/2017 1:17 PM SignedLIFESTYLE CHANGEA healthy [...] programs in your area.Referring Provider: DAVID ERWIN [[id number]]Allergies As of Date: 08/12/2017 Noted Allergy ReactionPHENERGAN [...] Comments: removes skinDate Reviewed: 08/12/2017Reviewed by: Gui Barroso) NAWAF Gallego - Fully AssessedReason for Visit: Follow Up [171] Cmt: 6 monthPrimary Visit Diagnosis:ASHD (arteriosclerotic heart disease) [I25.10] Other Visit Diagnosis:Hypertension, essential [I10]Order(s):metoprolol succinate ER (TOPROL XL) 100 mg [id number] 1 tablet by mouth once daily.Disp: 90 [...] the following areas and commit to making detention changes. EAT A WHOLE FOOD, PLANT BASED [...] SmartForms filed during this visit:Extended VitalsEncounter Number: [id number] Status:Closed by DAVID ERWIN MD on 08/12/17 [facility] PROGRESSon 08-12-2017 PROGRESS HNO ID: [id number] thor: David Raya: (none)Author Type: PhysicianType: Progress [...] - metBeta nisha for ASHD with prior [place] or prior LVEF<40 (NQF 0070) - metBeta [...] with treatment plan.This note was generated using [employer] voice recognition system, and theremay be some incorrect words, spellings, and punctuation that were notnoted in checking the note before saving.DIAGNOSIS FOR VISIT:ASHDHypertensionHISTORY OF PRESENT ILLNESSCyntelda Hunter returns for follow-up of multiple cardiac [...] daily. Rinse mouth after use.blood sugar diagnostic (PIERIS ProteolabTOUCH ULTRA TEST) test strip Use as instructed3 [...] of metoprolol.Electronically Signed:David Erwin MDFebruary 2017 1:17 [facility]: Vishnu Coleman MD [facility] OBSOLETEon 04-06-2017 OBSOLETE Refill (AGCARDWST) -RANDOLPH HUNTER ([id number]) 1950 [facility] Time Provider Yuuntcictk97/16/17 DAVID ERWIN AGCARDWST During your visit today, we recorded the following information about you:Gui Gallego RN, RN 04/06/2017 1:59 PM SignedPatient phones requesting refills as follows:Pending Prescriptions Disp Refills METOPROLOL SUCCINATE ER 50 MG TABLET,EXTENDED RELEASE 24 HR 135 tablet 3 Sig: Take 1.5 tablets by mouth once daily. IRA: No Please review and advise.Feng Galvez has been identified by name and date [...] file. Status:Closed by GUI GALLEGO on 04/06/17 [facility] Vital Signs Date Time Vital Sign Value Performing Clinician Zack goncalves 10-10-2024 13:29-0400 Body temperature 96.8 [degF] Travis Patterson APRN.FISH FRYER Work Phone: [facility] 10-10-2024 13:29-0400 Diastolic blood pressure 57 mm[Hg] Travis Lackeybert INHALATION THERAPIST.FISH FRYER Work Phone: [facility] 10-10-2024 13:29-0400 Heart rate 66 /min Travis Patterson INHALATION THERAPIST.FISH FRYER Work Phone: [facility] 10-10-2024 13:29-0400 Respiratory rate 16 /min Travis Patterson APRN.FISH FRYER Work Phone: [facility] 10-10-2024 13:29-0400 SaO2% (BldA) [Mass fraction] 97 % Travis Patterson APRN.FISH FRYER Work Phone: [facility] 10-10-2024 13:29-0400 Systolic blood pressure 120 mm[Hg] Travis Lackeybert INHALATION THERAPIST.FISH FRYER Work Phone: [facility] 10-05-2024 16:09-0400 Body temperature 97.81 [degF] Travis Lackeybert INHALATION THERAPIST.[employer]ISH FRYER Work Phone: [facility] 10-05-2024 16:09-0400 Diastolic blood pressure 71 mm[Hg] Travis Lackeybert INHALATION THERAPIST.FISH FRYER Work Phone: [facility] 10-05-2024 16:09-0400 Heart rate 64 /min Travis Patterson INHALATION THERAPIST.FISH FRYER Work Phone: [facility] 10-05-2024 16:09-0400 Respiratory rate 19 /min Travis Patterson APRN.FISH FRYER Work Phone: [facility] 10-05-2024 16:09-0400 SaO2% (BldA) [Mass fraction] 96 % Travis Patterson APRN.FISH FRYER Work Phone: [facility] 10-05-2024 16:09-0400 Systolic blood pressure 122 mm[Hg] Travis Patterson INHALATION THERAPIST.FISH FRYER Work Phone: [facility] 09-30-2024 13:29-0400 Body temperature 97.3 [degF] Travis Patterson INHALATION THERAPIST.FISH FRYER Work Phone: [facility] 09-30-2024 13:29-0400 Diastolic blood pressure 64 mm[Hg] Travis Patterson INHALATION THERAPIST.FISH FRYER Work Phone: [facility] 09-30-2024 13:29-0400 Heart rate 69 /min Travis Patterson INHALATION THERAPIST.FISH FRYER Work Phone: [facility] 09-30-2024 13:29-0400 Respiratory rate 18 /min Travis Patterson INHALATION THERAPIST.FISH FRYER Work Phone: [facility] 09-30-2024 13:29-0400 SaO2% (BldA) [Mass fraction] 97 % Travis Patterson INHALATION THERAPIST.FISH FRYER Work Phone: [facility] 09-30-2024 13:29-0400 Systolic blood pressure 124 mm[Hg] Travis Patterson INHALATION THERAPIST.FISH FRYER Work Phone: [facility] 07-09-2024 23:24-0500 Diastolic blood pressure 66 mm[Hg] BETY Jha MD Work Phone: [facility] 07-09-2024 23:24-0500 Heart rate 96 /min BETY Jha MD Work Phone: [facility] 07-09-2024 23:24-0500 Respiratory rate 20 /min BETY Jha MD Work Phone: [facility] 07-09-2024 23:24-0500 SaO2% (BldA) [Mass fraction] 98 % BETY Jha MD Work Phone: [facility] 07-09-2024 23:24-0500 Systolic blood pressure 99 mm[Hg] BETY Jha MD Work Phone: [facility] 07-09-2024 23:21-0500 Body height 157.5 cm BETY Jha MD Work Phone: [employer] [facility] 07-09-2024 23:21-0500 Body mass index (BMI) [Ratio] 39.14 kg/m2 BETY Jha MD Work Phone: [facility] 07-09-2024 23:21-0500 Body temperature 98.4 [degF] BETY Jha MD Work Phone: [employer] [facility] 07-09-2024 23:21-0500 Body weight 97.07 kg BETY Jha MD Work Phone: [facility] 02-10-2024 10:43-0400 Body temperature 97.7 [degF] Isaaccirilo Chicas DO Work Phone: [facility] [facility] 01-27-2024 12:59-0400 Body temperature 97.11 [degF] Isaaccirilo Hancocke DO Work Phone: [facility] 01-27-2024 12:59-0400 Diastolic blood pressure 76 mm[Hg] Isaac Brian DO Work Phone: [facility] 01-27-2024 12:59-0400 Heart rate 72 /min Isaac Brian DO Work Phone: [facility] 01-27-2024 12:59-0400 Respiratory rate 18 /min Isaac Brian DO Work Phone: [facility] 01-27-2024 12:59-0400 Systolic blood pressure 126 mm[Hg] Isaac Brian DO Work Phone: [facility] 01-20-2024 14:26-0400 Body height 157.5 cm Isaaccirilo Hancocke DO Work Phone: [employer] [facility] 01-20-2024 14:26-0400 Body mass index (BMI) [Ratio] 38.96 kg/m2 Isaac Brian DO Work Phone: [employer] [facility] 01-20-2024 14:26-0400 Body temperature 97.2 [degF] Isaaccirilo Hancocke DO Work Phone: [employer] [facility] 01-20-2024 14:26-0400 Body weight 96.62 kg Isaac Brian DO Work Phone: [facility] 01-20-2024 14:26-0400 Diastolic blood pressure 70 mm[Hg] Isaac Chicas DO Work Phone: [facility] 01-20-2024 14:26-0400 Heart rate 79 /min Isaac Chicas DO Work Phone: [facility] 01-20-2024 14:26-0400 Respiratory rate 18 /min Isaac Chicas DO Work Phone: [facility] 01-20-2024 14:26-0400 Systolic blood pressure 112 mm[Hg] Isaac Chicas DO Work Phone: [facility] 12-15-2023 22:15-0400 Diastolic blood pressure 57 mm[Hg] Gloria Bangura DO Work Phone: [facility] 12-15-2023 22:15-0400 Heart rate 64 /min Gloriajasvir Bangura DO Work Phone: [facility] 12-15-2023 22:15-0400 Respiratory rate 16 /min Gloria Resendizoch DO Work Phone: [facility] 12-15-2023 22:15-0400 SaO2% (BldA) [Mass fraction] 98 % Gloriajasvir Bangura DO Work Phone: [facility] 12-15-2023 22:15-0400 Systolic blood pressure 137 mm[Hg] Gloria Willem DO Work Phone: [facility] 12-15-2023 18:24-0400 Body height 165.1 cm Gloria Willem DO Work Phone: [employer] [facility] 12-15-2023 18:24-0400 Body mass index (BMI) [Ratio] 35.45 kg/m2 Gloria Willem DO Work Phone: [employer] [facility] 12-15-2023 18:24-0400 Body temperature 97.3 [degF] Gloria Willem DO Work Phone: [employer] 12-15-2023 18:24-0400 Body weight 96.62 kg Gloria Bangura DO Work Phone: [employer] 07-20-2023 06:46-0500 Diastolic blood pressure 67 mm[Hg] Cuba Anna MD Work Phone: [employer] 07-20-2023 06:46-0500 Heart rate 63 /min Cuba Anna MD Work Phone: [employer] 07-20-2023 06:46-0500 Respiratory rate 16 /min Cuba Anna MD Work Phone: [employer] 07-20-2023 06:46-0500 SaO2% (BldA) [Mass fraction] 97 % Cuba Anna MD Work Phone: [employer] 07-20-2023 06:46-0500 Systolic blood pressure 148 mm[Hg] Cuba Anna MD Work Phone: [employer] 07-19-2023 18:50-0500 Body height 157.5 cm Cuba Anna MD Work Phone: [employer] 07-19-2023 18:50-0500 Body mass index (BMI) [Ratio] 43.71 kg/m2 Cuba Anna MD Work Phone: [employer] 07-19-2023 18:50-0500 Body temperature 98.01 [degF] Cuba Anna MD Work Phone: [employer] 07-19-2023 18:50-0500 Body weight 108.41 kg Cuba Anna MD Work Phone: [employer] 09-06-2022 10:13-0400 Diastolic blood pressure 75 mm[Hg] Linden Fuentes MD Work Phone: [employer] 09-06-2022 10:13-0400 Heart rate 69 /min Linden Fuentes MD Work Phone: [employer] 09-06-2022 10:13-0400 Respiratory rate 15 /min Linden Fuentes MD Work Phone: [facility] 09-06-2022 10:13-0400 SaO2% (BldA) [Mass fraction] 100 % Linden Fuentes MD Work Phone: [facility] 09-06-2022 10:13-0400 Systolic blood pressure 143 mm[Hg] Linden Fuentes MD Work Phone: [facility] 09-06-2022 05:33-0400 Body temperature 98.2 [degF] Linden Fuentes MD Work Phone: [facility] 03-12-2022 19:37-0400 Body temperature 98.71 [degF] BETY Jha MD Work Phone: [facility] 03-12-2022 19:37-0400 Diastolic blood pressure 68 mm[Hg] BETY Jha MD Work Phone: [facility] 03-12-2022 19:37-0400 Heart rate 73 /min BETY Jha MD Work Phone: [facility] 03-12-2022 19:37-0400 Respiratory rate 16 /min BETY Jha MD Work Phone: [facility] 03-12-2022 19:37-0400 SaO2% (BldA) [Mass fraction] 97 % BETY Jha MD Work Phone: [facility] 03-12-2022 19:37-0400 Systolic blood pressure 151 mm[Hg] BETY Jha MD Work Phone: [facility] 03-08-2022 20:15-0400 Body height 165.1 cm BETY Jha MD Work Phone: [facility] 03-08-2022 11:49-0400 Body mass index (BMI) [Ratio] 35.45 kg/m2 BETY Jha MD Work Phone: [facility] 03-08-2022 11:49-0400 Body weight 96.62 kg BETY Jha MD Work Phone: [facility] 09-26-2021 11:23-0400 Body weight 99.34 kg Baudilio Sultana MD Work Phone: [facility] 09-26-2021 11:23-0400 Diastolic blood pressure 72 mm[Hg] Baudilio Sultana MD Work Phone: [facility] 09-26-2021 11:23-0400 Heart rate 68 /min Baudilio Sultana MD Work Phone: [facility] 09-26-2021 11:23-0400 Systolic blood pressure 142 mm[Hg] Baudilio Sultana MD Work Phone: [facility] Encounters Encounter Date Encounter Type Care Provider Facility Start: 12-06-2024 End: 12-06-2024 ambulatory GILMER COTTON Facility:[facility] Start: 12-05-2024 ambulatory Baudilio Sultana Facility:[facility] Start: 11-08-2024 ambulatory STEVEN Jones ty:[id number] Start: 11-04-2024 End: 11-04-2024 ambulatory GILMER COTTON Facility:[facility] Start: 10-27-2024 ambulatory STEVEN Jones ty:[facility] Start: 10-27-2024 End: 10-27-2024 Subsequent hospital visit by physician Ramos [facility] Work Phone: Radiology Comment on above: Sprain of left ankle , unspecified ligament, initial encounter [S93.402A] Start: 10-27-2024 End: 10-27-2024 Patient encounter procedure Steven Pelaez Work Phone: Podiatry Comment on above: Sprain of left ankle , unspecified ligament, initial encounter (Primary Dx); Ankle instability, left; Chronic pain of left ankle Start: 10-27-2024 End: 10-27-2024 ambulatory STEVEN PELAEZ Facility:[facility] Start: 10-19-2024 End: 10-19-2024 Patient encounter procedure Mendel Sharma PA-C Work Phone: Orthopaedics Comment on above: Primary osteoarthrit is of left knee (Primary Dx) Start: 10-19-2024 End: 10-19-2024 ambulatory MNEDEL SHARMA Facility:[facility] Start: 10-10-2024 End: 10-10-2024 ambulatory Travis Patterson APRN.[facility] Work Phone: [facility] Comment on above: Fall at home, initia l encounter (Primary Dx); Cerebral palsy, unspecified type (HCC); Brachial neuritis or radiculitis; Acute pain of right shoulder; Left knee pain, unspecified chronicity; Diabetic polyneuropathy associated with type 2 diabetes mellitus (HCC); Neuropathy; Type 2 diabetes, controlled, with neuropathy (HCC); Atherosclerosis of atka coronary artery of atka heart without angina pectoris; Other pulmonary embolism without acute cor pulmonale, unspecified chronicity (HCC); Debility Start: 10-10-2024 End: 10-10-2024 Telemedicine consultation with patient Travis Patterson APRN.[facility] Work Phone: [facility] Start: 10-05-2024 End: 10-05-2024 ambulatory Travis Patterson APRN.[facility] Work Phone: [facility] Comment on above: Fall at home, initia l encounter (Primary Dx); Cerebral palsy, unspecified type (HCC); Brachial neuritis or radiculitis; Acute pain of right shoulder; Left knee pain, unspecified chronicity; Diabetic polyneuropathy associated with type 2 diabetes mellitus (HCC); Type 2 diabetes, controlled, with neuropathy (HCC); Neuropathy; Atherosclerosis of atka coronary artery of atka heart without angina pectoris; Other pulmonary embolism without acute cor pulmonale, unspecified chronicity (HCC); Debility Start: 10-05-2024 End: 10-05-2024 Telemedicine consultation with patient Travis Patterson APRN.[facility] Work Phone: [facility] Start: 09-30-2024 End: 09-30-2024 ambulatory Travis Patterson APRN.[facility] Work Phone: [facility] Comment on above: Fall at home, initia l encounter (Primary Dx); Cerebral palsy, unspecified type (HCC); Brachial neuritis or radiculitis; Acute pain of right shoulder; Left knee pain, unspecified chronicity; Diabetic polyneuropathy associated with type 2 diabetes mellitus (HCC); Neuropathy; Type 2 diabetes, controlled, with neuropathy (HCC); Atherosclerosis of atka coronary artery of atka heart without angina pectoris; Other pulmonary embolism without acute cor pulmonale, unspecified chronicity (HCC); Debility Start: 09-30-2024 End: 09-30-2024 Telemedicine consultation with patient Travis Patterson APRN.[facility] Work Phone: [facility] Start: 09-21-2024 End: 09-21-2024 ambulatory GILMER Bojorquez LULA Facility:[facility] Start: 09-18-2024 End: 09-28-2024 ambulatory RAF CASEY Facility:[facility] Start: 09-18-2024 End: 09-18-2024 Emergency department patient visit RAF CASEY Facility:[facility] Start: 09-02-2024 End: 09-02-2024 ambulatory GILMER Bojorquez LULA Facility:[facility] Start: 08-05-2024 End: 08-05-2024 ambulatory GILMER Bojorquez WILCOX Facility:[facility] Start: 07-09-2024 End: 07-09-2024 Subsequent hospital visit by physician [facility] Radiology Comment on above: Arrived Start: 07-09-2024 End: 07-10-2024 Emergency department patient visit Александр Jha MD Work Phone: [facility] ED Comment on above: Acute cough (Primary Dx) Start: 06-30-2024 End: 06-30-2024 ambulatory GILMER COTTON Facility:[facility] Start: 05-02-2024 End: 05-02-2024 ambulatory GILMER Bojorquez WILCOX Facility:[facility] Start: 03-04-2024 End: 03-04-2024 ambulatory GILMER Bojorquez WILCOX Facility:[facility] Start: 02-10-2024 End: 02-10-2024 Office outpatient visit 10 minutes Isaac Chicas DO Work Phone: [facility] Comment on above: Pressure ulcer of ri ght foot, stage 3 (HCC) (Primary Dx) Start: 02-10-2024 End: 02-10-2024 ambulatory GIO [facility] Start: 01-29-2024 End: 01-29-2024 ambulatory GILMER Bojorquez LULA Facility:[facility] Start: 01-27-2024 End: 01-27-2024 Subsequent hospital visit by physician Isaac Chicas DO Work Phone: [facility] Comment on above: Pressure ulcer of ri ght foot, stage 3 (HCC) (Primary Dx) Start: 01-27-2024 End: 01-27-2024 ambulatory [facility] Start: 01-20-2024 End: 01-20-2024 Office outpatient new 30 minutes Isaac Hancocke DO Work Phone: [facility] Comment on above: Pressure ulcer of ri ght foot, stage 3 (HCC) (Primary Dx) Start: 01-20-2024 End: 01-20-2024 ambulatory [facility] Start: 12-25-2023 End: 12-25-2023 ambulatory [facility] Facility:[facility] Start: 12-15-2023 End: 12-15-2023 Subsequent hospital visit by physician [facility] Radiology Comment on above: Arrived Start: 12-15-2023 End: 12-16-2023 Emergency department patient visit Gloria Bangura DO Work Phone: [facility] ED Comment on above: Diabetic ulcer of le ft foot associated with diabetes mellitus due to underlying condition, unspecified part of foot, unspecified ulcer stage (HCC) (Primary Dx); Left leg cellulitis Start: 07-19-2023 End: 07-19-2023 Subsequent hospital visit by physician [facility] Exam Room [address] [facility] [address] Comment on above: Arrived Start: 07-19-2023 End: 07-19-2023 Emergency department patient visit CUBA ANNA [facility] Start: 07-19-2023 End: 07-20-2023 Emergency department patient visit Cuba Anna MD Work Phone: [facility] ED Comment on above: Frequent falls (Prim liv Dx); Right hip pain; Contusion of right knee, initial encounter; Osteoarthritis, unspecified osteoarthritis type, unspecified site Start: 05-04-2023 Orders Only Chasidy Heredia MA [facility] [place] Start: 09-06-2022 End: 09-07-2022 Emergency department patient visit LINDEN FUENTES [facility] Start: 09-06-2022 End: 09-06-2022 Subsequent hospital visit by physician [facility] Comment on above: Arrived Start: 09-06-2022 End: 09-06-2022 Emergency department patient visit Linden Fuentes MD Work Phone: [facility] Comment on above: Fall, initial encoun ter (Primary Dx) Start: 04-15-2022 Telephone encounter Baudilio Sultana MD Work Phone: [facility] Comment on above: Insurance Authorizat ion Start: 03-08-2022 End: 03-13-2022 Evaluation and management of inpatient J Candida Jha MD Work Phone: [facility] Comment on above: Diabetic [...] Nursing evaluation of patient and report Nurse/Benigno [facility] Work Phone: Podiatry Comment on above: [...] m caregiver Steven Pelaez Work Phone: [facility] Start: 02-10-2022 End: 02-10-2022 Subsequent hospital visit by physician Xr [facility] Work Phone: Radiology Comment on [...] Baudilio Sultana MD Work Phone: Internal Medicine [facility] Start: 11-26-2021 Telephone encounter Baudilio Sultana MD Work Phone: Internal Medicine [place] Comment on above: Anticoagulation Start: 11-19-2021 Telephone encounter Baudilio Sultana MD Work Phone: [facility] Comment on above: Anticoagulation Start: 11-05-2021 Telephone encounter Baudilio Sultana MD Work Phone: [facility] [place] Comment on above: Anticoagulation Start: 10-30-2021 Telephone encounter Baudilio Sultana MD Work Phone: [facility] [place] Comment on above: Anticoagulation Start: 10-15-2021 Telephone encounter Baudilio Sultana MD Work Phone: [facility] [place] Comment on above: Anticoagulation Start: 10-14-2021 ambulatory Baudilio Sultana MD Work Phone: [facility] [place] Comment on above: Question regarding C arotid Dup Dustin OP Start: 10-14-2021 End: 10-14-2021 Subsequent hospital visit by physician Bone Density [facility] Work Phone: Radiology Comment on above: Disorder of bone and cartilage [M89.9, M94.9] Start: 10-08-2021 Telephone encounter Baudilio Sultana MD Work Phone: [facility] [place] Comment on above: Anticoagulation Refill Request Start: 10-01-2021 Telephone encounter Baudilio Sultana MD Work Phone: Family [facility] [place] Comment on above: Patient Question; Or ders Anticoagulation Start: 09-27-2021 Telephone encounter Baudilio Sultana MD Work Phone: [facility] [place] Comment on above: Results Start: 09-26-2021 End: 09-26-2021 Patient encounter procedure Baudilio Sultana MD Work Phone: [facility] [place] Comment on above: Cerebral palsy, unsp ecified [...] Telephone encounter Baudilio Sultana MD Work Phone: [facility] [place] Comment on above: Anticoagulation Start: 09-18-2021 Telephone encounter Baudilio Sultana MD Work Phone: [facility] [place] Comment on above: Anticoagulation Start: 09-16-2021 Chart abstracting Baudilio Pretty MD Work Phone: [facility] [place] Start: 09-16-2021 End: 09-16-2021 Patient encounter procedure [facility] Start: 2021 Telephone encounter Baudilio Sultana MD Work Phone: [facility] [place] Comment on above: Anticoagulation Start: 01-29-2021 End: 01-29-2021 Subsequent hospital visit by physician Ramos [facility] Work Phone: Radiology Comment on above: Chronic right should er pain [M25.511, G89.29] Start: 04-12-2018 Ambulatory DAVID ERWIN Facility :[facility] Start: 08-12-2017 End: 08-12-2017 Ambulatory DAVID ERWIN [facility] Procedures Date Procedure Procedure Detail Performing [...] d ev cleared fda spec home use [facility] Work Phone: Start: 03-12-2022 Gluc bld gluc mntr d ev cleared fda spec home use [facility] Work Phone: Start: 03-12-2022 Iadna-dna/rna gi pth [...] Start: 03-11-2022 POCT COVID-19, ANTIGEN Katya Lezama INHALATION THERAPIST - [facility] Work Phone: Start: 03-11-2022 Gluc bld gluc [...] Thyrotropin [Units/v olume] in Serum or Plasma [facility] 1 Start: 03-09-2022 BASIC METABOLIC PANE L W/ REFLEX TO MG FOR LOW K Katya Lezama INHALATION THERAPIST - [facility] Work Phone: Start: 03-09-2022 Drug screen quantita tive vancomycin Kushal Gaines DO Work Phone: Start: 03-09-2022 Hemoglobin glycosylated a1c Katya Lezama INHALATION THERAPIST - [facility] Work Phone: Start: 03-09-2022 PROTIME/INR & PTT Merritt Lezama INHALATION THERAPIST - [employer] [facility] Work Phone: Start: 03-08-2022 Gluc bld gluc mntr d ev cleared fda spec home use Александр Jha MD Work Phone: Start: 03-08-2022 End: 03-08-2022 Gluc bld gluc mntr dev cleared fda spec home use Kushal Gaines DO Work Phone: Start: 03-08-2022 Radex ankle complete minimum 3 views Katya Lezama INHALATION THERAPIST - [employer] [facility] Work Phone: Start: 03-08-2022 BEDSIDE SPIROMETRY Joy Lezama INHALATION THERAPIST - [facility] Work Phone: Start: 03-08-2022 Culture bacterial quanttative colony count urine Александр Jha MD Work Phone: Start: 03-08-2022 Urnls dip stick/tabl et rgnt auto w/o microscopy Александр Jha MD Work Phone: Start: 03-08-2022 Basic metabolic pane l calcium total Александр Jha MD Work Phone: Start: 03-08-2022 Culture bacterial bl ood aerobic w/id isolates J Candida O Morah MD Work Phone: Start: 03-08-2022 CULTURE, BLOOD [...] Start: 09-25-2025 Creatinine measurement Serum Creatin ine [facility] Start: 02-20-2025 Influenza vaccination Influenz a Vaccine (Season Ended) [facility] Start: 12-14-2024 Complete blood count Hemoglobin/Jackson tocrit [facility] Start: 12-14-2024 Creatinine measurement Serum Creatin ine [facility] Start: 12-14-2024 Diabetes: Estimated Glomerular Filtration Rate for Kidney Health Diabetes: Estimated Glomerular Filtration Rate for Kidney Health [facility] Start: 12-07-2024 End: 12-07-2024 Patient encounter procedure 12/07/2024 3:40 PM EDT Office Visit Endocrinology [facility] [address] [address] Ravi Michael MD [address] [place] [address] Diabetes Endocrinology Comment on above: Diabetes Start: 11-08-2024 End: 11-08-2024 Patient encounter procedure 11/08/2024 11:00 AM EDT Appointment MRI Scan [address] [place] [address] Chronic pain of left ankle [M25.572, G89.29 MRI Scan Comment on above: Chronic pain of left ankle [M25.572, G89.29 Start: 10-27-2024 End: 10-27-2024 Patient encounter procedure 10/27/2024 11:15 AM EDT Office Visit Podiatry [address] [place], [place] [id number] Steven Pelaez [address] [place], [place] [id number] left foot Podiatry Comment on above: left foot Start: 10-19-2024 End: 10-19-2024 Patient encounter procedure Orthopaedics Comment on above: Cerebral palsy with knee injury unable to stand pivot. 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 pivot Start: 06-22-2024 Advance Directive Discussion Advance Directive Discussion [facility] Start: 06-22-2024 Medicare Advantage Annual Wellness Visit Medicare Advantage Annual Wellness Visit [facility] Start: 02-21-2024 Covid-19 Vaccine ( season) Covid-19 Vaccine ( season) [facility] Start: 02-21-2024 Influenza vaccination [facility] Start: 02-03-2024 End: 02-03-2024 Patient encounter procedure 02/03/2024 10:[address] [facility] [address] [place] [address] Isaac Chicas, [address] [place] [address] [facility] Start: 01-27-2024 End: 01-27-2024 Patient encounter procedure 01/27/2024 1:[address] [facility] [address] [place] [address] Isaac Chicas, DO [address] [facility] [place] [place] [address] [facility] Start: 06-22-2023 Advance Directive Discussion Advance Directive Discussion [facility] Start: 06-22-2023 Medicare [facility] Annual Wellness Visit Medicare Advantage Annual Wellness Visit [facility] Start: 03-09-2023 Hemoglobin A1c measurement Diabetes: Hemoglobin A1C [facility] Start: 03-09-2023 Thyroid stimulating hormone measurement TSH Level [facility] Start: 02-20-2023 Covid-19 Vaccine () Covid-19 Vaccine () [facility] Start: 02-20-2023 COVID-19 Vaccine () COVID-19 Vaccine () [facility] Start: 02-20-2023 Influenza vaccination Influenza Vacc ine (#1) [facility] Start: 01-04-2023 Colonoscopy COLONOSCOPY [facility] Start: 01-04-2023 COLORECTAL CANCER SCREENING COLORECTAL CANCER SCREENING [facility] Start: 01-04-2023 Screening for malign ant neoplasm of colon [facility] Start: 09-26-2022 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 DISEASE VISIT ANNUAL PCP TEAM CHRONIC DISEASE VISIT [facility] Start: 09-26-2022 Serum Creatinine Serum Creatinine Cl [facility] Start: 09-16-2022 Hepatitis B screening URINE ALBUMIN:CREATININE RATIO [facility] Start: 09-06-2022 Hemoglobin A1c measurement HbA1C [facility] Start: 09-06-2022 Hemoglobin A1c/Hemoglobin.total in Blood HBA1C [facility] Start: 06-24-2022 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 VISIT ANNUAL PCP TEAM CHRONIC DISEASE VISIT [facility] Start: 06-22-2022 ADVANCE DIRECTIVE DISCUSSION ADVANCE DIRECTIVE DISCUSSION [facility] Start: 04-18-2022 BP CONTROLLED (<130/80) BP CONTROLLE D (<130/80) [facility] Start: 04-12-2022 COVID-19 Vaccine (4 - Booster) COVID-19 Vaccine (4 - Booster) [facility] Start: 03-13-2022 End: 03-11-2023 Protime-INR Protime-INR Lab Routine PE (pulmonary thromboembolism) (HCC) Expected: 03/13/2022, Expires: 03/11/2023 [facility] Work Phone: Comment on above: Expected: 03/13/2022 , Expires: 03/11/2023 Start: 02-20-2022 Influenza vaccination [facility] Start: 02-12-2022 Hemoglobin A1c/Hemoglobin.total in Blood HBA1C [facility] Start: 11-09-2021 3 comp foot exam completed DIABETIC FOOT EXAM [facility] Start: 11-09-2021 Diabetic foot examination Diabetic Foot Exam [facility] Start: 11-08-2021 End: 01-08-2022 Thyrotropin [Units/volume] in Serum or Plasma TSH BLD Lab Routine Acquired hypothyroidism Expected: 11/08/2021, Expires: 01/08/2022 [facility] Work Phone: Comment on above: Expected: 11/08/2021 , Expires: 01/08/2022 Start: 09-26-2021 End: 11-26-2021 Comprehensive metabolic 2000 panel - Serum or Plasma [facility] Work Phone: Comment on above: Expected: 09/26/2021 , Expires: 11/26/2021 Start: 09-26-2021 End: 11-26-2021 Thyrotropin [Units/volume] in Serum or Plasma [facility] Work Phone: Comment on above: Expected: 09/26/2021 , Expires: 11/26/2021 Start: 09-26-2021 End: 11-26-2021 VITAMIN B12 BLOOD [facility] Work Phone: Comment on above: Expected: 09/26/2021 , Expires: 11/26/2021 Start: 09-11-2021 Glaucoma screening Dilated Retinal E xam [facility] Start: 09-11-2021 Hepatitis C antibody , confirmatory test DILATED RETINAL EXAM [facility] Start: 08-29-2021 FECAL OCCULT BLOOD FECAL OCCULT BLOO D [facility] Start: 08-29-2021 Screening for malign ant neoplasm of colon Fecal Occult Blood [facility] Start: 08-01-2021 Hemoglobin A1c/Hemoglobin.total in Blood HBA1C [facility] Start: 07-11-2021 Hepatitis B screening URINE ALBUMIN:CREATININE RATIO [facility] Start: 06-22-2021 ADVANCE DIRECTIVE DISCUSSION ADVANCE DIRECTIVE DISCUSSION [facility] Start: 06-16-2021 COVID-19 VACCINE (5 - Booster) COVID-19 VACCINE (5 - Booster) [facility] Start: 03-21-2021 Hepatitis B surface antibody level LDL CHOLESTEROL [facility] Start: 03-29-2019 Mammography [facility] Start: 03-29-2019 Screening for malign ant neoplasm of breast Mammogram Screening [facility] Start: 12-26-2018 ADVANCE DIRECTIVE DISCUSSION ADVANCE DIRECTIVE DISCUSSION [facility] Start: 03-29-2017 DTaP/Tdap/Td Vaccine s (2 - Td or Tdap) DTaP/Tdap/Td Vaccines (2 - Td or Tdap) [facility] Start: 03-29-2017 Urine microalbumin profile [facility] Start: 09-06-2016 Pneumococcal Vaccine : 65+ Years (1 - PCV) Pneumococcal Vaccine: 65+ Years (1 - PCV) [facility] Start: 2016 BONE DENSITY BONE DENSITY [facility] Start: 05-26-2016 SHINGRIX VACCINE (2 of 3) SHINGRIX VACCINE (2 of 3) [facility] Start: 05-26-2016 Zoster Vaccines (2 o f 3) Zoster Vaccines (2 of 3) [facility] Start: 2011 Hepatitis B Vaccine (1 of 3 - Risk 3-dose series) Hepatitis B Vaccine (1 of 3 - Risk 3-dose series) [facility] Start: 2011 Hepatitis B Vaccines (1 of 3 - Risk 3-dose series) Hepatitis B Vaccines (1 of 3 - Risk 3-dose series) [facility] Start: 2011 RSV Immunization age d 60 or older (1 - 1-dose 60+ series) RSV Immunization aged 60 or older (1 - 1-dose 60+ series) [facility] Start: 2011 RSV Immunization for Adults (1 - Risk 60-74 years 1-dose series) RSV Immunization for Adults (1 - Risk 60-74 years 1-dose series) [facility] Start: 2011 RSV Vaccine (1 - 1-d ose 60+ series) RSV Vaccine (1 - 1-dose 60+ series) [facility] Start: 2011 RSV Vaccine (1 - Ris k 60-74 years 1-dose series) RSV Vaccine (1 - Risk 60-74 years 1-dose series) [facility] Start: 09-06-2001 Zoster Vaccines (1 o f 2) Zoster Vaccines (1 of 2) [facility] Start: 1996 COLOGUARD (FIT-DNA) COLOGUARD (FIT-D NA) [facility] Start: [address] COLONOGRAPHY [facility] Start: 1996 Screening for malign ant neoplasm of colon [facility] Start: 1996 SIGMOIDOSCOPY SIGMOIDOSCOPY [facility] Start: 09-07-1991 Screening for malign ant neoplasm of breast Mammogram [facility] Start: 1991 Screening for malign ant neoplasm of breast Mammogram [facility] Start: 09-06-1970 DTaP/Tdap/Td Vaccine s (1 - Tdap) DTaP/Tdap/Td Vaccines (1 - Tdap) [facility] Start: 1970 DTaP/Tdap/Td vaccine (1 - Tdap) DTaP/Tdap/Td vaccine (1 - Tdap) [facility] Start: 1970 Hepatitis A Vaccines (1 of 2 - Risk 2-dose series) Hepatitis A Vaccines (1 of 2 - Risk 2-dose series) [facility] Start: 09-06-1969 Hepatitis C screening Hepatitis C [facility] Start: 1969 Anxiety Screening Anxiety Screening [facility] Start: 1969 BP CONTROLLED (<130/80) BP CONTROLLE D (<130/80) [facility] Start: 1969 Diabetes: Urine Albumin-Creatinine Ratio for Kidney Health Diabetes: Urine Albumin-Creatinine Ratio for Kidney Health [facility] Start: 1969 [facility]atitis [facility] Start: 1963 Depression Monitoring Depression Mon itoring [facility] Start: 1963 Depression Screening Depression Scre ening [facility] Start: 1961 Diabetic foot examination Diabetes: Foot Exam [facility] Start: 1961 Glaucoma screening Diabetes: R etinopathy Screening [facility] Start: 1961 Preventive dental service Diabetes: Dental Exam [facility] Start: 03-09-1952 COVID-19 Vaccine (#1) COVID-19 Vacci ne (#1) [facility] Start: 1951 Hepatitis B Vaccines (1 of 3 - 3-dose series) Hepatitis B Vaccines (1 of 3 - 3-dose series) [facility] Start: 1951 Screening for malign ant neoplasm of colon [facility] Start: 1951 Screening for osteoporosis Bone Density Scan [facility] Start: 1951 Lipid panel Lipid Panel [facility] Start: 1951 Medicare Advantage Annual Wellness Visit (AWV) Medicare Advantage Annual Wellness Visit (AWV) [facility] Start: 1951 Screening for malign ant neoplasm of colon [facility] Start: 1951 Screening for osteoporosis Bone Density Scan [facility] Bacteria identified in Blood by Culture [facility] Work Phone: End: 03-13-2022 Basic metabolic 2000 panel - Serum or Plasma Basic Metabolic Panel Lab Routine Daily for 3 Days starting 03/11/2022 until 03/13/2022, 1 completed [facility] Work Phone: Comment on above: Daily for 3 Days sta rting 03/11/2022 until 03/13/2022, 1 completed End: 03-13-2022 CBC W Auto Differential panel - Blood CBC with Auto Differential Lab Routine Daily for 3 Days starting 03/11/2022 until 03/13/2022, 1 completed [facility] Work Phone: Comment on above: Daily for 3 Days sta rting 03/11/2022 until 03/13/2022, 1 completed Culture, Blood 1 Culture, Blood 1 Microbiology STAT 03/08/2022 1:04 PM EDT [facility] Work Phone: Culture, Blood 2 Culture, Blood 2 Microbiology STAT 03/08/2022 1:04 PM EDT [facility] Work Phone: End: 03-08-2022 Culture, Urine Culture, Urine Microbiology Add-On One Time for 1 Occurrences starting 03/08/2022 until 03/08/2022 [facility] Work Phone: Comment on above: One Time for 1 Occur rences starting 03/08/2022 until 03/08/2022 Dressing Order: Collagen Ag, Mesalt pad; Three times per week; 4x4 gauze, ABDs; Kerlex, Paper tape Dressing Order: Collagen Ag, Mesalt pad; Three times per week; 4x4 gauze, ABDs; Kerlex, Paper tape Wound Ostomy Routine Ordered: 01/20/2024 [facility] Work Phone: Comment on above: Ordered: 01/20/2024 Dressing Order: Collagen, Mesalt pad; Three times per week; ABDs; Kerlex, Paper tape Dressing Order: Collagen, Mesalt pad; Three times per week; ABDs; Kerlex, Paper tape Wound Ostomy Routine Ordered: 01/27/2024 [facility] Work Phone: Comment on above: Ordered: 01/27/2024 End: 10-26-2022 Dxa bone density study 1/> sites axial skel DXA-AXIAL SKELETON Radiology Routine Disorder of bone and cartilage 1 Occurrences starting 09/26/2021 until 10/26/2022 [facility] Work Phone: Comment on above: 1 Occurrences starti ng 09/26/2021 until 10/26/2022 ECG 12 lead ECG 12 lead CV E CG STAT 09/06/2022 3:01 AM EDT [facility] Work Phone: Glucose [Mass/volume ] in Serum or Plasma [facility] Work Phone: Comment on above: 4X Daily (AC & HS) u ntil discontinued starting 03/08/2022 As Needed until disc ontinued starting 03/08/2022 End: 03-08-2022 Initiate Sepsis Narrator Initiate Sepsis Narrator Respiratory Care STAT Once for 1 Occurrences starting 03/08/2022 until 03/08/2022 [facility] Work Phone: Comment on above: Once for 1 Occurrenc es starting 03/08/2022 until 03/08/2022 End: 11-26-2025 MR Ankle - left WO contrast MRI ANKLE WO IVCON LEFT Radiology Routine Chronic pain of left ankle 1 Occurrences starting 10/27/2024 until 11/26/2025 [facility] Comment on above: 1 Occurrences starti ng 10/27/2024 until 11/26/2025 Oxygen therapy [Mini mum Data Set] Initiate Oxygen Therapy Protocol Respiratory Care Routine Daily until discontinued starting 03/08/2022 [facility] Work Phone: Comment on above: Daily until disconti nued starting 03/08/2022 Oxygen therapy [Mini mum Data Set] Initiate Oxygen Therapy Protocol Respiratory Care Routine As Needed until discontinued starting 03/08/2022 [email or web address] Work Phone: Comment on above: As Needed until disc ontinued starting 03/08/2022 End: 03-19-2022 PROTIME/INR & PTT PROTIME/INR & PTT Lab Routine Daily for 10 Days starting 03/10/2022 until 03/19/2022, 2 completed [facility] Work Phone: Comment on above: Daily for [address] arting 03/10/2022 until 03/19/2022, 2 completed End: 01-17-2023 Screening mammography bi 2-view breast inc cad FUAD SCREENING Radiology Routine Encounter for screening mammogram for breast cancer 1 Occurrences starting 12/18/2021 until 01/17/2023 [facility] Work Phone: Comment on above: 1 Occurrences starti ng 12/18/2021 until 01/17/2023 End: 09-26-2022 US CAROTID ARTERIES [facility] US CAROTID ARTERIES [facility] Vascular Lab Routine Carotid artery disease, unspecified laterality, unspecified type (HCC) 1 Occurrences starting 09/26/2021 until 09/26/2022 [facility] Work Phone: Comment on above: 1 Occurrences starti ng 09/26/2021 until 09/26/2022 End: 03-08-2022 Wound ostomy eval and treat Wound ostomy eval and treat Wound Ostomy Routine One Time for 1 Occurrences starting 03/08/2022 until 03/08/2022 [facility] Work Phone: Comment on above: One Time for 1 Occur rences starting 03/08/2022 until 03/08/2022 End: 11-26-2025 XR Ankle - left AP and Lateral and oblique XR ANKLE GENERAL 3V AP/LAT/OBL LEFT Radiology Routine Sprain of left ankle, unspecified ligament, initial encounter Ankle instability, left 1 Occurrences starting 10/27/2024 until 11/26/2025 [facility] Work Phone: Comment on above: 1 Occurrences starti ng 10/27/2024 until 11/26/2025 XR Ankle - left AP a nd Lateral and oblique XR ANKLE GENERAL 3V AP/LAT/OBL LEFT Radiology Routine Sprain of left ankle, unspecified ligament, initial encounter Ankle instability, left 10/27/2024 12:04 PM EDT [facility] End: 03-12-2023 XR FOOT GENERAL 3V AP/LAT/OBL LEFT XR FOOT GENERAL 3V AP/LAT/OBL LEFT Radiology Routine Diabetic ulcer of toe 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, with fat layer exposed (HCC) 1 Occurrences starting 02/10/2022 until 03/12/2023 [facility] Work Phone: Comment on above: 1 Occurrences starti ng 02/10/2022 until 03/12/2023 End: 02-10-2022 XR FOOT GENERAL 3V AP/LAT/OBL LEFT [facility] Work Phone: Comment on above: 1 Occurrences starti ng 02/10/2022 until 02/10/2022 End: 11-26-2025 XR Tibia and Fibula - left AP and Lateral XR TIBIA FIBULA 2V AP/LAT LEFT Radiology Routine Sprain of left ankle, unspecified ligament, initial encounter Ankle instability, left 1 Occurrences starting 10/27/2024 until 11/26/2025 [facility] Comment on above: 1 Occurrences starti ng 10/27/2024 until 11/26/2025 XR Tibia and Fibula - left AP and Lateral XR TIBIA FIBULA 2V AP/LAT LEFT Radiology Routine Sprain of left ankle, unspecified ligament, initial encounter Ankle instability, left 10/27/2024 12:04 PM EDT [facility] Immunizations Immunization Date Immunization Notes Care Provider Fide pendleton 03-14-2022 influenza virus vacc ine, unspecified formulation [address] 12-11-2021 COVID-19, PFIZER Bivalent BOOSTER, (age 12y+), IM, 30 mcg/0.3 mL dose BETY Jha MD Work Phone: [facility] Work Phone: 04-21-2021 COVID-19 vaccine, fu ll dose (MODERNA) Baudilio Sultana MD Work Phone: [facility] 02-21-2021 influenza, high-dose , quadrivalent vaccine (FLUZONE HIGH DOSE QUADRIVALENT) Baudilio Sultana MD Work Phone: [facility] 02-21-2021 influenza virus vacc ine, unspecified formulation Chasidy Heredia MA [facility] 09-25-2020 COVID-19 vaccine, fu ll dose (MODERNA) Baudilio Sultana MD Work Phone: [facility] 09-25-2020 COVID-19, [place] Vaccine , Vaccine Unspecified BETY Jha MD Work Phone: [facility] Work Phone: 09-25-2020 SARS-CoV-2, Unspecified [facility] 08-28-2020 COVID-19 vaccine, fu ll dose (MODERNA) Baudilio Sultana MD Work Phone: [facility] Work Phone: 08-25-2020 COVID-19 vaccine, fu ll dose (MODERNA) Baudilio Sultana MD Work Phone: [facility] 08-23-2020 COVID-19, US Vaccine , Vaccine Unspecified BETY Jha MD Work Phone: [facility] Work Phone: 08-23-2020 SARS-CoV-2, Unspecified [facility] 03-07-2020 influenza, high-dose , quadrivalent vaccine (FLUZONE HIGH DOSE QUADRIVALENT) Baudilio Sultana MD Work Phone: [facility] 05-04-2019 influenza, high dose seasonal, preservative-free Baudilio Sultana MD Work Phone: [facility] 05-04-2019 pneumococcal polysaccharide vaccine, 23 valent Baudilio Sultana MD Work Phone: [facility] 04-06-2018 influenza, high dose seasonal, preservative-free Baudilio Sultana MD Work Phone: [facility] 03-23-2017 Influenza virus vaccine [facility] Work Phone: 03-31-2016 zoster vaccine, live Baudilio Sultana MD Work Phone: [facility] 03-25-2016 influenza, injectabl e, quadrivalent, contains preservative Baudilio Sultana MD Work Phone: [facility] 03-02-2015 influenza, seasonal, injectable Baudilio Sultana MD Work Phone: [facility] 01-25-2015 pneumococcal conjuga te vaccine, 13 valent Baudilio Sultana MD Work Phone: [facility] 03-23-2014 influenza virus vacc ine, whole virus Baudilio Sultana MD Work Phone: [facility] 01-02-2014 Pneumococcal [facility] Work Phone: 12-28-2013 pneumococcal polysaccharide vaccine, 23 valent Baudilio Sultana MD Work Phone: [facility] 03-29-2011 influenza virus vacc ine, unspecified formulation Baudilio Sultana MD Work Phone: [facility] Work Phone: 04-15-2010 influenza virus vacc ine, unspecified formulation Baudilio Sultana MD Work Phone: [facility] Work Phone: 04-19-2009 novel influenza-H1N1 -09, all formulations Baudilio Sultana MD Work Phone: [facility] Work Phone: 04-12-2009 influenza virus vacc ine, unspecified formulation Baudilio Sultana MD Work Phone: [facility] Work Phone: 04-05-2008 influenza virus vacc ine, unspecified formulation Baudilio Sultana MD Work Phone: [facility] 04-19-2007 influenza virus vacc ine, unspecified formulation Baudilio Sultana MD Work Phone: [facility] Work Phone: 03-29-2007 tetanus toxoid, redu alfredito diphtheria toxoid, and acellular pertussis vaccine, adsorbed Baudilio Sultana MD Work Phone: [facility] Work Phone: 04-29-2006 influenza virus vacc ine, unspecified formulation Baudilio Sultana MD Work Phone: [facility] Work Phone: 04-03-2003 pneumococcal polysaccharide vaccine, 23 valent Baudilio Sultana MD Work Phone: [facility] Work Phone: 04-04-1998 pneumococcal polysaccharide vaccine, 23 valent Baduilio Sultana MD Work Phone: [facility] Payers Date Payer Category Payer Self-pay [id number] 2023 Medicare HMO [employer] EDICARE [id number] 2023 Medicaid HMO [employer] EDICAID ONLY [id number] 2022 Medicare [id number] 2022 Medicare (Managed Care) [facility] DUAL COMPLETE HMO POS SNP [id number] 2022 Medicare [id number] 2021 Medicaid [id number] 2021 Medicaid [facility] MEDICAID MYC ARE [facility] MEDICAID [id number] 2021-Present [phone] [address] [place] [address] Medicaid [id number] 2021 Medicaid [id number] 2021 Medicare [id number] 2021 Medicare [id number] 2021 Medicaid MEDICAID [facility] MEDICAID [id number] 2021-Present [phone] [address] [place] [address] Medicaid [id number] 2020 Private Health Insurance [address] [facility] [id number] [facility] [id number] 1990 Medicare [id number] 1951 Unknown [id number] Medicare [id number] Medicare [employer] [id number] Private Health Insurance [facility] [id number] Unknown [id number] Social History Date Type Detail Facility Start: 10-09-2016 End: 10-19-2024 Tobacco smoking status NHIS Never smoked tobacco [facility] Start: 08-15-2021 End: 10-27-2024 Alcohol intake Current drinker of alcohol (finding) [facility] Start: 01-02-2020 End: 09-06-2022 History SDOH Alcohol Frequency 2 [facility] Start: 01-02-2020 End: 09-06-2022 History SDOH Alcohol Std Drinks 1 [facility] Start: 01-02-2020 History SDOH Social Connections Phone 5 [facility] Start: 01-02-2020 History SDOH Social Connections Meetings 98 [facility] Start: 01-02-2020 History SDOH Social Connections Living 3 [facility] Start: 01-02-2020 History SDOH Physical Activity DPW 0 [facility] Start: 01-02-2020 History SDOH Stress 4 [facility] Start: 01-02-2020 Education 15 [facility] Start: 10-09-2016 End: 10-19-2024 Tobacco Comment Lived with 2 smoking parents for 18 years. Spouse non-smoke. [facility] Start: 1950 Sex Assigned At Not on file [facility] Start: 12-15-2020 End: 09-06-2022 Exposure to SARS-CoV-2 (event) Not sure [facility] Start: 04-22-2021 Tobacco smoking status NHIS Unknown if ever smoked [facility] Work Phone: Start: 02-27-2021 Rare [facility] Work Phone: Start: 02-27-2021 None [facility] Work Phone: Start: 06-26-2017 Spouse/ Significant Other [facility] Work Phone: Start: 02-27-2021 Non-smoker [facility] Work Phone: Start: 1950 End: 1950 Sex Assigned At Female [facility] Work Phone: Start: 10-04-2021 End: 03-10-2022 Exposure to SARS-CoV-2 (event) Unable to assess [facility] Start: 10-09-2016 End: 10-19-2024 Tobacco use and exposure Smokeless tobacco non-user [facility] Work Phone: Start: 03-08-2022 History SDOH Alcohol Comment 1 PER YEAR [facility] Work Phone: Start: 01-02-2020 End: 10-27-2024 History of Social function [facility] Start: 01-02-2020 End: 10-27-2024 Social connection and isolation panel [facility] Do you belong to any clubs or organizations such as christian groups, unions, fraternal or athletic groups, or school groups? No [facility] How often do you att end meetings of the clubs or organizations you belong to? Patient refused [facility] Are you now , , , , never or living with a partner? [facility] How often to you hav e a drink containing alcohol? Monthly or less [facility] How many standard dr inks containing alcohol do you have on a typical day? 1 or 2 [facility] How often do you hav e 6 or more drinks on 1 occasion? Never [facility] How hard is it for y ou to pay for the very basics like food, housing, medical care, and heating Not very hard [facility] Do you feel stress - tense, restless, nervous, or anxious, or unable to sleep at night because your mind is troubled all the time - these days [OSQ] Rather much [facility] (I/We) worried [place] er (my/our) food would run out before (I/we) got money to buy more. Sometimes true [facility] The food that (I/we) bought just didn't last, and (I/we) didn't have money to get more. Never true [facility] Start: 12-03-2021 Gender identity Identifies as female gender (finding) [facility] Start: 07-09-2024 Alcohol Comment occasional [facility] Start: 04-03-2022 Sex Female (finding) [facility] Medical Equipment Procedure Code Equipment Code Equipment Original Text Equipment Identifier Dates Reinaldo Bn Smplx Hv Fd - [id number] Start: 12-26-2013 Reinaldo Bn Smplx Hv Fd - [id number] Start: 12-26-2013 Comp Fem 3 Rt Kn Reinaldo Ps Pfc - [id number] Start: 12-26-2013 Ins Tib Xlnk - [id number] Start: 12-26-2013 Comp Tibtry 3 Kn Reinaldo Mdlr Sig - [id number] Start: 12-26-2013 Dome Pat 38mm Pf c Sig Std Kn - [id number] Start: 12-26-2013 [id number], [id number], [id number], [id number], [id number] Start: 01-04-2018 End: 07-24-2021 Comment on above: [...] 01/25/2015 11:16 AM Lora Alegria Ma No [facility] 01-25-2015 Are you blind, or do you have serious difficulty seeing, even when wearing glasses Yes 01/25/2015 11:16 AM Lora Alegria Ma Yes [facility] 01-25-2015 Do you have serious difficulty walking or climbing stairs Yes 01/25/2015 11:16 AM EDT Lora Acuna Ma Yes [facility] 01-25-2015 Do you have difficul ty dressing or bathing Yes 01/25/2015 11:16 AM EDT Lora Acuna Ma Yes [facility] 01-25-2015 Because of a physica l, mental, or emotional condition, do you have difficulty doing errands alone such as visiting a physician's office or shopping Yes 01/25/2015 11:16 AM EDT Lora Acuna Ma Yes [facility] Mental Status Date Assessment Result Facility 01-25-2015 Because of a physica l, mental, or emotional condition, do you have serious difficulty concentrating, remembering, or making decisions No 01/25/2015 11:16 AM EDT Lora Acuna Ma No [facility] Clinical Notes 01-04-2018 to 12-06-2024 Felix David RT(R) - 10/27/2024 11:40 AM Steven Sutton - 10/27/2024 11:29 AM Del Shultz RN - 10/27/2024 10:44 AM EDTPatient InstructionsDischarge InstructionsAttachments Note Date & Type Note Facility 12-06-2024 Note HNO ID: [id number] Author: GILMER COTTON, PhD Service: ? Author Type: Psychologist Type: Progress Notes Filed: 12/06/2024 12:04 Note Text: [facility] Progress Note Randolph Hunter 12/06/2024 [id number] PROVIDER: Gilmer Cotton, PhD CPT Code: Time: 50 minutes Setting: Patient seen in person Parties Present: Patient Treatment Modality/Interventions: Cognitive Behavioral Reassurance/Supportive Insight oriented Problem solving Processing of emotions Psychoeducation MENTAL STATUS: Mood: variable Affect: mood-congruent Thoughts/Associations:goal directed Suicidal/Homicidal Ideation: None expressed or evidenced Other Prominent Symptoms: Therapy Focus/Content of Session: Self-care, Mood/affect regulation, Self-esteem, and Coping with chronic illness Pt moved now a week [place] so far and she believes it was a good move As Usual: she will help get care up to speed and work w the staff Thus far... she has had a positive response from the Charge Nurse when a floor nurse was amandeep and disrespectful So far she and Clovis are sharing a room and soon Clovis will have an Assisted Living room while she is in [facility] Nursing rooms MEDICATIONS: Per medical record: Current Outpatient Medications [...] directed once a month. blood sugar diagnostic (TistagamesUCH VERIO TEST STRIPS) test strip Test blood [...] Issues: No change from previous appointment DIAGNOSIS: [place] I: Depressive Disorder recurrent Morbidly Obese CP [place] II : Deferred [place] III : See medical history [place] IV: Health [place] V: GAF 60-51 Moderate symptoms or moderate difficulty in social, (more content not included)... [facility] 11-08-2024 Note HNO ID: [id number] Author: SHALINI MERA RT(R) Service: ? Author [...] PATIENT PRESENTS WITH AN IMPLANTABLE OR ATTACHED HAND ROUNDER: No RADIOLOGY DEPARTMENT: MR; Exam(s) Completed: Lower MSK: Ankle/Hind Foot, left. Lavender Administered: No PERIPHERAL IV DATA: Not applicable SIGNED BY: RT Faustina(R) November 08, 2024 11:14 AM [facility] 11-04-2024 Note HNO ID: [id number] Author: GILMER COTTON, PhD Service: ? Author Type: Psychologist Type: Progress Notes Filed: 11/04/2024 11:56 Note Text: [facility] Behavioral Health Department Progress Note Randolph Hunter 11/04/2024 [id number] PROVIDER: Gilmer Cotton, PhD CPT Code: Time: 50 minutes Setting: Due to the federal emergency declaration and the need for ongoing mental health services, the following visit was completed virtually and informed consent obtained orally to reduce the risk of COVID-19 exposure. Oral consent to services related to virtual visits was obtained after information was sent via Quidsi or read to patient if Haiku Deckhart not available." Parties Present: Patient Treatment Modality/Interventions: [...] / mo over a year so considering Clovis is doing a walk through today [...] directed once a month. blood sugar diagnostic ([employer] VERIO TEST STRIPS) test strip Test blood [...] adjustable head and (more content not included)... [facility] 10-27-2024 History of Present illness Narrative Radiology [...] PATIENT PRESENTS WITH AN IMPLANTABLE OR ATTACHED HAND ROUNDER: No RADIOLOGY DEPARTMENT: General X-ray: Exam(s) Completed: Lower Extremity X-Ray(s): Tibia Fibula, Left and Ankle, Left PERIPHERAL IV DATA: Not applicable SIGNED BY: DIXIE Chapman) October 27, 2024 11:40 AM documented in this encounter [facility] 10-27-2024 Note HNO ID: [id number] Author: FLEIX DAVID RT(R) Service: Radiology Author Type: Technologist Type: Progress [...] PATIENT PRESENTS WITH AN IMPLANTABLE OR ATTACHED HAND ROUNDER: No RADIOLOGY DEPARTMENT: General X-ray: Exam(s) Completed: Lower Extremity X-Ray(s): Tibia Fibula, Left and Ankle, Left PERIPHERAL IV DATA: Not applicable SIGNED BY: DIXIE Chapman) October 27, 2024 11:40 AM [facility] 10-27-2024 Note HNO ID: [id number] Author: STEVEN PELAEZ, ? Service: ? Author [...] embolism (HCC) 2011 SLE (systemic lupus erythematosus) ([facility]) Type II or unspecified type diabetes mellitus [...] (NORCO) 5-325 mg (more content not included)... [facility] 10-27-2024 History of Present illness Narrative Subjective Simran is a 74-year-old female with [...] improve strength and stability. Attestation Recording using documistic software for draft documentation of the visit was discussed with the patient/authorized professional healthcare representative; all questions welcomed and answered. Patient/authorized professional healthcare representative agreed to proceed Steven Pelaez DPM [...] and injured herself. She is currently at [facility]. Has a history of cerebral palsy with left sided decreased sensation, but states that when she stands or puts pressure on the foot she is still having pain. XRay of left ankle was done 09/18/24. ИРИНА 12/15/23 documented in this encounter [facility] 10-27-2024 Instructions Steven Peleaz - 10/27/2024 11:25 AM EDT You have a diagnosed left ankle sprain with associated instability. An x-ray of your left ankle and leg was ordered today to reassess the injury. An MRi of left ankle has been ordered. due to failed improvement with therapy, pursue mri Continue with your current physical, occupational, and speech therapies at the rehab center. documented in this encounter [facility] 10-27-2024 Note HNO ID: [id number] Author: DEL ISBELL RN Service: ? Author [...] and injured herself. She is currently at [facility]. Has a history of cerebral palsy with left sided decreased sensation, but states that when she stands or puts pressure on the foot she is still having pain. XRay of left ankle was done 09/18/24. ИРИНА 12/15/23 [facility] 10-19-2024 History of Present illness Narrative Associated [...] directed once a month. blood sugar diagnostic ([employer] VERIO TEST STRIPS) test strip Test blood [...] Status Change Penicillins Hives Dioxicillin Promethazine Intolerance Iqelbjo-Ufb-Quo Red* Myalgia PAST MEDICAL HISTORY PAST MEDICAL [...] VESSEL,PERCUT 2004 Transcath stent init vessel percut SOCIAL HISTORY [...] which included preparing to see the patient, mwaq-aq-vqgc patient care, completing clinical documentation, obtaining and/or [...] these instructions. Informed Consent Consent Obtained: Verbal [place] Protocol A moment to CARE was completed. [...] Mendel Sharma PA-C documented in this encounter [facility] 10-19-2024 Note HNO ID: [id number] Author: MENDEL SHARMA PA-C Service: ? Author Type: Physician Gas Station Clerk Type: Progress Notes Filed: 10/19/2024 10:43 Note [...] directed once a month. blood sugar diagnostic ([employer] VERIO TEST STRIPS) test strip Test blood [...] Status Change Penicillins Hives Dioxicillin Promethazine Intolerance Emuchnl-Lnv-Kla Red* Myalgia PAST MEDICAL HISTORY PAST MEDICAL HISTORY Diagnosis Date CAD (coronary artery disease) Carotid artery stenosis Cerebral palsy (HCC) Chronic depressive personality disorder Diarrhea Dyslipidemia Edema bilat Hirsutism Hypertension Hypothyroid Insomnia Migraines (more content not included)... [facility] 10-10-2024 Note HNO ID: [id number] Author: TRAVIS PATTERSON APRN.FISH FRYER Service: ? Author Type: Nurse Practitioner Type: Progress Notes Filed: 10/10/2024 16:06 Note Text: Connected Care Unit Progress Note Patient Name: Randolph Hunter Patient Facility: [facility] Admit Date 09/28/2024 Level of Care: [...] vital signs Monitor labs 9. Atherosclerosis of atka coronary artery of atka heart without angina pectoris - ICD9: 414.01, [...] Dept Phone 10/19/2024 9:30 AM MENDEL SHARMA [facility] [phone] 11/04/2024 11:00 AM GILMER COTTON [facility] [phone] 12/06/2024 11:00 AM GILMER COTTON [facility] [phone] 12/07/2024 3:40 PM RAVI MICHAEL [facility] [phone] HPI: (Per hospital discharge) Admission Information ADMIT [...] inability to stand pivot necessitating going to assisted facility for rehab SUMMARY OF WHAT HAPPENED WHILE I WAS IN THE HOSPITAL: Orthopedics agrees no surgical intervention now resume exercises when you get to the assisted facility no ligamentous injury evident on CT [...] embolism (HCC) 2011 SLE (systemic lupus erythematosus) ([facility]) Type II or unspecified type diabetes mellitus [...] for weakness. Medication (more content not included)... [facility] 10-10-2024 History of Present illness Narrative Images from the original note were not included. Connected Care Unit Progress Note Patient Name: Randolph Hunter Patient Facility: [facility] Admit Date 09/28/2024 Level of Care: [...] vital signs Monitor labs 9. Atherosclerosis of atka coronary artery of atka heart without angina pectoris - ICD9: 414.01, [...] 9:30 AM MENDEL SHARMA [facility] [phone] 11/04/2024 11:00 AM GILMER COTTON [facility] [phone] 12/06/2024 11:00 AM GILMER COTTON [facility] [phone] 12/07/2024 3:40 PM RAVI MICHAEL [facility] [phone] HPI: (Per hospital discharge) Admission Information ADMIT [...] inability to stand pivot necessitating going to assisted facility for rehab SUMMARY OF WHAT HAPPENED WHILE I WAS IN THE HOSPITAL: Orthopedics agrees no surgical intervention now resume exercises when you get to the assisted facility no ligamentous injury evident on CT [...] GFR- 59 mL/min/1.73 m2 >60 L Final VAE-RLY-ZONJYIG 49 mL/min/1.73 m2 >60 L Final Stage [...] today,10/10/2024 This note was partially generated using Fengguo recognition system, and there may be some incorrect words, spellings, and punctuation that were not noted in checking the note before saving. Electronically signed by Travis Patterson APRN.FISH FRYER documented in this encounter [facility] 10-05-2024 Note HNO ID: [id number] Author: TRAVIS PATTERSON APRN.JOHN Service: ? Author Type: Nurse Practitioner Type: Progress Notes Filed: 10/05/2024 16:20 Note Text: Connected Care Unit Progress Note Patient Name: Randolph Hunter Patient Facility: [facility] Admit Date 09/28/2024 Level of Care: [...] vital signs Monitor labs 9. Atherosclerosis of atka coronary artery of atka heart without angina pectoris - ICD9: 414.01, [...] Dept Phone 10/19/2024 9:30 AM MENDEL SHARMA [place] [facility] [phone] 11/04/2024 11:00 AM GILMER COTTON [facility] [phone] HPI: (Per hospital discharge) Admission Information ADMIT [...] inability to stand pivot necessitating going to assisted facility for rehab SUMMARY OF WHAT HAPPENED WHILE I WAS IN THE HOSPITAL: Orthopedics agrees no surgical intervention now resume exercises when you get to the assisted facility no ligamentous injury evident on CT [...] weakness. Medications: Medications (more content not included)... [facility] 10-05-2024 History of Present illness Narrative Images from the original note were not included. Connected Care Unit Progress Note Patient Name: Randolph Hunter Patient Facility: [facility] Admit Date 09/28/2024 Level of Care: [...] vital signs Monitor labs 9. Atherosclerosis of atka coronary artery of atka heart without angina pectoris - ICD9: 414.01, [...] Phone 10/19/2024 9:30 AM MENDEL SHARMA [facility] [phone] 11/04/2024 11:00 AM GILMER COTTON [facility] [phone] HPI: (Per hospital discharge) Admission Information ADMIT [...] inability to stand pivot necessitating going to assisted facility for rehab SUMMARY OF WHAT HAPPENED WHILE I WAS IN THE HOSPITAL: Orthopedics agrees no surgical intervention now resume exercises when you get to the assisted facility no ligamentous injury evident on CT [...] today,10/05/2024 This note was partially generated using [employer] voice recognition system, and there may be some incorrect words, spellings, and punctuation that were not noted in checking the note before saving. Electronically signed by Travis Patterson APRN.FISH FRYER documented in this encounter [facility] 09-30-2024 Note HNO ID: [id number] Author: TRAVIS PATTERSON APRN.JOHN Service: ? Author Type: Nurse Practitioner Type: Progress Notes Filed: 09/30/2024 13:49 Note Text: Connected Care Unit Progress Note Patient Name: Randolph Hunter Patient Facility: [facility] Admit Date 09/28/2024 Level of Care: [...] vital signs Monitor labs 9. Atherosclerosis of atka coronary artery of atka heart without angina pectoris - ICD9: 414.01, [...] Dept Phone 10/04/2024 11:00 AM GILMER COTTON [facility] [phone] 10/19/2024 9:30 AM MENDEL SHARMA [facility] [phone] 11/04/2024 11:00 AM GILMER COTTON [facility] [phone] HPI: (Per hospital discharge) Admission Information ADMIT [...] inability to stand pivot necessitating going to assisted facility for rehab SUMMARY OF WHAT HAPPENED WHILE I WAS IN THE HOSPITAL: Orthopedics agrees no surgical intervention now resume exercises when you get to the assisted facility no ligamentous injury evident on CT [...] history (unchanged) Revi (more content not included)... [facility] 09-30-2024 History of Present illness Narrative Images from the original note were not included. Connected Care Unit Progress Note Patient Name: Randolph Hunter Patient Facility: [facility] Admit Date 09/28/2024 Level of Care: [...] vital signs Monitor labs 9. Atherosclerosis of atka coronary artery of atka heart without angina pectoris - ICD9: 414.01, [...] Dept Phone 10/04/2024 11:00 AM GILMER COTTON [facility] [phone] 10/19/2024 9:30 AM MENDEL SHARMA [facility] [phone] 11/04/2024 11:00 AM GILMER COTTON [facility] [phone] HPI: (Per hospital discharge) Admission Information ADMIT [...] inability to stand pivot necessitating going to assisted facility for rehab SUMMARY OF WHAT HAPPENED WHILE I WAS IN THE HOSPITAL: Orthopedics agrees no surgical intervention now resume exercises when you get to the assisted facility no ligamentous injury evident on CT [...] which included preparing to see the patient, fyuk-ol-qqfh patient care, completing clinical documentation, obtaining and/or reviewing separately obtained history, performing a medically appropriate examination, counseling and educating the patient/family/caregiver, ordering medications, tests, or procedures, communicating with other HCPs (not separately reported), independently interpreting results (not separately reported), communicating results to the patient/family/caregiver, and care coordination (not separately reported). It This note was partially generated using [employer] voice recognition system, and there may be some incorrect words, spellings, and punctuation that were not noted in checking the note before saving. Electronically signed by Travis Patterson APRN.FISH FRYER documented in this encounter [facility] 09-28-2024 Note HNO ID: [id number] Author: KATERIN RICH RN Service: Care Management Author Type: Registered Nurse Type: Care Mgt Progress Note Filed: 09/28/2024 15:06 Note Text: CARE MANAGEMENT DISCHARGE NOTE SERVICE DATE: September 28, 2024 SERVICE TIME: 3:04 PM Admission Date: 09/18/2024 LOS: 0 days Discharge Arrangement Discharge Arrangement: [facility] Facility Was an expedited discharge program used?: No Services Arranged Provider Name: [facility] Caregiver Assessment Caregiver is ready, willing and able to meet the patient's needs as recommended by the inter-professional team: Yes Name of Caregiver: [facility] Transportation Arrangements Transportation Arrangements: Ambulance Transportation Agency and Phone #:: [facility] [phone] Date of Trip: 09/28/24 Time of Trip: 1630 Type of Service: BLS Non-emergency Is Patient Medicaid Pending?: No Was transportation financial coverage discussed with family?: Patient Corporate Legal Assistant Location: [place] Destination: [facility] Financial Care Management Responsibility: None Handoff Communication: Handoff to: Primary Care Physician Primary Care Physician Name/Phone: Raf Casey MD - [phone] Additional Information: Orders received for patient to discharge to SNF. [facility] is able to accept patient today. Precert approval received. Patient agreeable to discharge plan. Ambulance transport via [facility] at 1630. Envelope prepared. Bedside RN updated. SIGNATURE: Katerin Rich RN PATIENT NAME: Randolph Hunter DATE: September 28, 2024 TIME: 3:03 PM [facility] 09-28-2024 Note HNO ID: [id number] Author: KATERIN RICH RN Service: Care Management Author Type: Registered Nurse Type: Care Mgt Progress Note Filed: 09/28/2024 11:21 Note Text: CARE MANAGEMENT PROGRESS NOTE SERVICE DATE: 09/28/2024 SERVICE TIME: 10:07 AM LOS: 0 days Needs Prior to Discharge: To Be Determined EMR reviewed. CM called and left VM for Ping Ramsey from the [facility] Board of ([phone]) in regards to determination of PASRR. Awaiting return call. CM will follow. 11:00 AM Left VM for [employer] in regards to determination of PASRR. Awaiting return call. Per [employer] website noted status is completed. CM will follow. 11:21 AM SNF reviewed results in [employer] website and are able to accept patient today. CM will follow. SIGNATURE: Katerin Rich RN PATIENT NAME: Randolph Hunter DATE: September 28, 2024 TIME: 10:07 AM [facility] 09-27-2024 Note HNO ID: [id number] Author: SAGE LOERA MD Service: Hospital Medicine Author Type: Physician Type: Progress Notes Filed: 09/27/2024 18:30 Note Text: DEPARTMENT OF HOSPITAL MEDICINE PROGRESS NOTE SERVICE DATE: 09/27/2024 SERVICE TIME: 5:44 PM Hospital Medicine/Primary Attending: Sage Loera MD NIGHT AND WEEKEND COVERAGE: [employer] COVERAGE: Nights: [phone], please page [facility] Night coverage pager [phone]. Probable discharge: Disposition: [facility]-assisted facility Consultants: PROCEDURES: NONE CODE STATUS: Full code ACCEPTS BLOOD PRODUCTS: YES : ASSESSMENT/PLAN Reason for Admission: Fall in patient with cerebral palsy who being unable to bear weight to transfer will need assisted home placement Anticoagulation: Prior to admission: Warfarin [...] (cerebral palsy) (HCC) (POA: Yes) --Presented to [place] ED for evaluation of left knee pain [...] lupus erythematosus) (HCC) (POA: Yes) --Plaquenil as HOB GRINDER Type 2 diabetes, controlled, with neuropathy (HCC) [...] the ED fo (more content not included)... [facility] 09-27-2024 Note HNO ID: [id number] Author: SHERYL HUITRON RN Service: Care Management Author Type: Registered Nurse Type: Care Mgt Progress Note Filed: 09/27/2024 14:00 Note Text: CARE MANAGEMENT PROGRESS NOTE SERVICE DATE: 09/27/2024 SERVICE TIME: 1:50 PM LOS: 0 days HENS.OH checked and no determination noted on PASRR at this time. NAWAF LOPEZ called Ping Ramsey from the [facility] Board of DD. She confirms she completed bedside visit yesterday she checked and states she has not received any updates at this time. NAWAF LOPEZ provided direct contact and [employer] for her call with update. [facility] confirmed that insurance authorization/precert was obtained and valid until 09/29/24. SNF: [facility] updated in [facility] Transitions. Discharge Transportation: Medical Transport envelope on Chart. NAWAF LOPEZ updated patient. JESSICA dept to follow. SIGNATURE: Sheryl Huitron RN PATIENT NAME: Randolph Hunter DATE: September 27, 2024 TIME: 1:50 PM [facility] 09-26-2024 Note HNO ID: [id number] Author: SAGE LOERA MD Service: Hospital Medicine Author Type: Physician Type: Progress Notes Filed: 09/26/2024 14:40 Note Text: DEPARTMENT OF HOSPITAL MEDICINE PROGRESS NOTE SERVICE DATE: 09/26/2024 SERVICE TIME: 1:37 PM Hospital Medicine/Primary Attending: Sage Loera MD NIGHT AND WEEKEND COVERAGE: [employer] [place] COVERAGE: Nights: [phone], please page [facility] Night coverage pager [phone]. Probable discharge: Disposition: [facility]-assisted facility Consultants: PROCEDURES: NONE CODE STATUS: Full code ACCEPTS BLOOD PRODUCTS: YES : ASSESSMENT/PLAN Reason for Admission: Fall in patient with cerebral palsy who being unable to bear weight to transfer will need assisted home placement Anticoagulation: Prior to admission: Warfarin [...] (cerebral palsy) (HCC) (POA: Yes) --Presented to [place] ED for evaluation of left knee pain [...] lupus erythematosus) (HCC) (POA: Yes) --Plaquenil as HOB GRINDER Type 2 diabetes, controlled, with neuropathy (HCC) [...] urinary symptoms, skin (more content not included)... [facility] 09-26-2024 Note HNO ID: [id number] Author: SHERYL HUITRON RN Service: Care Management Author Type: Registered Nurse Type: Care Mgt Progress Note Filed: 09/26/2024 15:07 Note Text: CARE MANAGEMENT PROGRESS NOTE SERVICE DATE: 09/26/2024 SERVICE TIME: 9:41 AM LOS: 0 days 09/18/24 Admission Hospital Consults: PT. OT. O2: room air Diet: regular + supplements 09/22/24 PT recommended: SNF 09/22/24 OT recommended: SNF Discharge Plan: [facility] Facility [facility]: [facility] - Able to Accept Precert was obtained and valid 09/23-09/25. Needs Precert for SNF. PT AND OT messaged to request updated evaluations today. [facility] updated via secure message to [employer] [facility]/[place] site checked - No updates on determination. NAWAF LOPEZ called and left voice message for Ping Ramsey [phone] [facility] of . Service and Support Administration request call back with update on determination. 09/26/24 9:38 AM NAWAF LOPEZ attempted another call to Ping Ramsey-No Answer/Voice Mail Box - no new message left at this time. Needs Prior to Discharge: To Be Determined, OT/PT Evaluation, Insurance Authorization, Precertification, Discharge Transportation ([facility] Level II Reveiw - Determination.) NAWAF LOPEZ met with patient at bedside to update her on discharge planning. CM Dept to Follow. 09/26/24 12:50PM RN JESSICA called Ping Ramsey from the [facility]. She informs CM that they can not see the review in there system. 09/26/24 1:00 PM RN JESSICA called and spoke with Ravi Ramirezaide [phone] from the [facility] He informs CM that review needs to go to the [facility] and they should be able to see the referral. RN JESSICA called Ping Ramsey back to inform her. She states she still is unable to see and states if she not receive it by end of day today she will reach out to Ravi Multani tomorrow. CM Dept to follow. 09/26/24 2:08 PM Ping Braulio from [facility] called CM to update her that she will be completing bedside visit today between 300PM and 400PM. [facility] tasked to start insurance authorization/precert. CM Dept to follow. SIGNATURE: Sheryl Huitron RN PATIENT NAME: Randolph Hunter DATE: September 26, 2024 TIME: 9:41 AM [facility] 09-25-2024 Note HNO ID: [id number] Author: SAGE LOERA MD Service: Hospital Medicine Author Type: Physician Type: Progress Notes Filed: 09/25/2024 16:17 Note Text: DEPARTMENT OF HOSPITAL MEDICINE PROGRESS NOTE SERVICE DATE: 09/25/2024 SERVICE TIME: 12:48 PM Hospital Medicine/Primary Attending: Sage Loera MD NIGHT AND WEEKEND COVERAGE: [employer] COVERAGE: Nights: [phone], please page [place] [facility] Night coverage pager [phone]. Probable discharge: Disposition: [facility]-assisted facility Consultants: PROCEDURES: NONE CODE STATUS: Full code ACCEPTS BLOOD PRODUCTS: YES : ASSESSMENT/PLAN Reason for Admission: Fall in patient with cerebral palsy who being unable to bear weight to transfer will need assisted home placement Anticoagulation: Prior to admission: Warfarin [...] (cerebral palsy) (HCC) (POA: Yes) --Presented to [place] ED for evaluation of left knee pain [...] lupus erythematosus) (HCC) (POA: Yes) --Plaquenil as HOB GRINDER Type 2 diabetes, controlled, with neuropathy (HCC) [...] chest pain, palpitati (more content not included)... [facility] 09-24-2024 Note HNO ID: [id number] Author: SAGE LOERA MD Service: Hospital Medicine Author Type: Physician Type: Progress Notes Filed: 09/25/2024 12:46 Note Text: DEPARTMENT OF HOSPITAL MEDICINE PROGRESS NOTE SERVICE DATE: 09/25/2024 SERVICE TIME: 12:10 PM Hospital Medicine/Primary Attending: Sage Loera MD NIGHT AND WEEKEND COVERAGE: [employer] COVERAGE: Nights: [phone], please page [facility] Night coverage pager [phone]. Probable discharge: Disposition: [facility]-assisted facility Consultants: PROCEDURES: NONE CODE STATUS: Full code ACCEPTS BLOOD PRODUCTS: YES : ASSESSMENT/PLAN Reason for Admission: Fall in patient with cerebral palsy who being unable to bear weight to transfer will need assisted home placement Anticoagulation: Prior to admission: Warfarin [...] (cerebral palsy) (HCC) (POA: Yes) --Presented to [place] ED for evaluation of left knee pain [...] lupus erythematosus) (HCC) (POA: Yes) --Plaquenil as HOB GRINDER Type 2 diabetes, controlled, with neuropathy (HCC) (POA: Yes) --OP: Metformin --IP: SSI #1 AC/qHS -- Home metformin resumed CKD (chronic kidney disease) (POA: Yes) -- Renal function stable s Patient Active Hospital Problem List: Fall Date Noted: 05/04/2023 Type 2 diabetes, controlled, with neuropathy ([facility]) Date Noted: Acquired hypothyroidism Date Noted: 04/10/2005 CP (cerebral palsy) ([facility]) Date Noted: 03/29/2007 Depression, recurrent Date Noted: 10/17/2009 SLE (systemic lupus erythematosus) ([facility]) Date Noted: 08/02/2010 Pulmonary embolism (HCC) Date Noted: 09/01/2011 Lupus anticoagulant disorder ([facility]) Date Noted: 05/04/2023 CKD (chronic kidney disease) [...] changes, peripheral edema, paresthesia or focal weaknesses. [place] [facility] Course: HDS, afebrile. Labs unremarkable. Imaging including XR L KNEE/HIP/ANKLE negative for fracture. CT L KNEE negative for fracture, small joint effusion noted. The patient was admitted under (more content not included)... [facility] 09-23-2024 Note HNO ID: [id number] Author: CONCEPCION KEEN MD Service: Hospital Medicine Author Type: Physician Type: Progress Notes Filed: 09/23/2024 17:37 Note Text: DEPARTMENT OF HOSPITAL MEDICINE PROGRESS NOTE SERVICE DATE: 09/23/2024 SERVICE TIME: 5:34 PM Hospital Medicine/Primary Attending: Concepcion Keen,* NIGHT AND WEEKEND COVERAGE: [employer] COVERAGE: Days: [phone], please page attending physician. Nights: [phone], please page [place] [facility] Night coverage pager [phone]. Subjective INTERVAL HPI: Seen and examined on [...] Drain Duration External Collection Device 09/18/24 2332 [facility] 4 days Reviewed lines and needs to [...] (cerebral palsy) (HCC) (POA: Yes) --Presented to [place] ED for evaluation of left knee pain after a fall at home, non-ambulatory at baseline secondary to CP but concerns for current facility ability to meet her needs --XR L KNEE/HIP/ANKLE negative for acute osseous injury -- (more content not included)... [facility] 09-23-2024 Note HNO ID: [id number] Author: SHERYL HUITRON, RN Service: Care Management Author Type: Registered Nurse Type: Care Mgt Progress Note Filed: 09/23/2024 16:53 Note Text: CARE MANAGEMENT PROGRESS NOTE SERVICE DATE: 09/23/2024 SERVICE TIME: 8:09 AM LOS: 0 days Discharge Plan: [facility] Facility SNF: [facility] - : Able to Accept. [facility] tasked to start insurance precert for SNF. [facility] PAS[place] completed. Level II Review Required. Determination: Pending. Discharge Transportation: Medical Transport - COT Transport Envelope on Chart SNF [facility] Updated in [facility]port Transitions. Needs Prior to Discharge: To Be Determined, Insurance Authorization, Precertification, Discharge Transportation (PASRR Level II Determination) Dept to Follow. 09/23/24 11:46 AM [facility] confirms Precert Obtained: Patient has been APPROVED to admit to [facility] in the [facility] Portal starting 09/23-09/25 NRD 09/25 Auth ID [id number]. [facility] Level II Review Determination is Still Pending. SNF: [facility] - Updated in [facility] Transitions. They can not accept until they receive the PASRR determination. CM dept to Follow. 09/23/24 4:52 PM RN CM checked [facility] PAS[place] Document ID : [id number] - Still Pending Level II Determination. CM Dept to follow. SIGNATURE: Sheryl Huitron RN PATIENT NAME: Randolph Hunter DATE: September 23, 2024 TIME: 8:08 AM [facility] 09-22-2024 Note HNO ID: [id number] Author: CONCEPCION KEEN MD Service: Hospital Medicine Author Type: Physician Type: Progress Notes Filed: 09/22/2024 12:13 Note Text: DEPARTMENT OF HOSPITAL MEDICINE PROGRESS NOTE SERVICE DATE: 09/22/2024 SERVICE TIME: 12:12 PM Hospital Medicine/Primary Attending: Concepcion Keen,* NIGHT AND WEEKEND COVERAGE: [employer] COVERAGE: Days: [phone], please page attending physician. Nights: [phone], please page [place] [facility] Night coverage pager [phone]. Subjective INTERVAL HPI: Seen and examined on [...] Drain Duration External Collection Device 09/18/24 2332 [facility] 3 days Reviewed lines and needs to [...] (cerebral palsy) (HCC) (POA: Yes) --Presented to [place] ED for evaluation of left knee pain after a fall at home, non-ambulatory at baseline secondary to CP but concerns for current facility ability to meet her needs --XR L KNEE/HIP/ANKLE negative for acute osseous injury --CT L KNEE negative for fracture, small joint eff (more content not included)... [facility] 09-22-2024 Note HNO ID: [id number] Author: CONCEPCION KEEN MD Service: Care Management [...] Problems: Type 2 diabetes, controlled, with neuropathy ([facility]) Acquired hypothyroidism CP (cerebral palsy) ([facility]) Depression, recurrent SLE (systemic lupus erythematosus) (HCC) Pulmonary embolism (HCC) Lupus anticoagulant disorder (HCC) CKD (chronic kidney disease) Knee pain Fall at home, initial encounter Obesity, Class II, BMI 35-39.9 Resolved Problems: * No resolved hospital problems. * Attending Physician: Concepcion Keen,* [facility] 09-22-2024 Note HNO ID: [id number] Author: SHERYL HUITRON RN Service: Care Management Author Type: Registered Nurse Type: Care Mgt Progress Note Filed: 09/22/2024 15:17 Note Text: CARE MANAGEMENT PROGRESS NOTE SERVICE DATE: 09/22/2024 SERVICE TIME: 8:35 AM SNF Referrals: [facility] - [facility] AND Rehab - Able to Accept [facility] - Able to Accept Patients SNF 1st choice is pending. NAWAF LOPEZ updated Referral and requested update on acceptance. PT AND OT messaged to request updates for Precert. Patient has been updated that [facility] is still pending. Discharge Transportation: To be Determined. Needs Prior to Discharge: Accepting Facility, OT/PT Evaluation, Insurance Authorization, Precertification, Discharge Transportation CM Dept to Follow. 09/22/24 3:10 PM [facility] - Able to Accept PASR Completed in [facility] - Level II Review Required. NAWAF LOPEZ called the [facility] Board of [phone] Option 2 Service and Support Administration and spoke with Ping Ramsey at [phone]. She checked and informed CM that it has not been received from [facility] at this time. She reports she it [...] DATE: September 22, 2024 TIME: 8:35 AM [facility] 09-21-2024 Note HNO ID: [id number] Author: GILMER COTTON, PhD Service: ? Author Type: Psychologist Type: Progress Notes Filed: 09/21/2024 17:07 Note Text: [facility] Behavioral Health Department Progress Note [facility] 09/21/2024 [id number] PROVIDER: Gilmer Cotton, PhD CPT Code: Time: 30 minutes Setting: Due to the federal emergency declaration and the need for ongoing mental health services, the following visit was completed virtually and informed consent obtained orally to reduce the risk of COVID-19 exposure. Oral consent to services related to virtual visits was obtained after information was sent via Quidsi or read to patient if Haiku Deckhart not available." Phone ... no access to [...] PRN Psychiatric Medication Issues: as noted DIAGNOSIS: [place] I: Depressive Disorder recurrent Morbidly Obese CP [place] II : Deferred [place] III : See medical history [place] IV: Health [place] V: GAF 60-51 Moderate symptoms or moderate difficulty in social, occupational or school functioning TREATMENT PROGRESS/ASSESSMENT: Fluctuating progress. TREATMENT PLAN/GOALS: Continue in therapy focusing on self-care, stress management, affect management, anxiety management, and self-esteem. Next appointment: as scheduled Gilmer Cotton, PhD [facility] 09-21-2024 Note HNO ID: [id number] Author: CONCEPCION KEEN MD Service: Hospital Medicine Author Type: Physician Type: Progress Notes Filed: 09/21/2024 16:30 Note Text: DEPARTMENT OF HOSPITAL MEDICINE PROGRESS NOTE SERVICE DATE: 09/21/2024 SERVICE TIME: 4:28 PM Hospital Medicine/Primary Attending: Concepcion Keen,* NIGHT AND WEEKEND COVERAGE: [employer] COVERAGE: Days: [phone], please page attending physician. Nights: [phone], please page [place] [facility] Night coverage pager [phone]. Subjective INTERVAL HPI: Seen and examined on [...] Drain Duration External Collection Device 09/18/24 2332 [facility] 2 days Reviewed lines and needs to [...] (cerebral palsy) (HCC) (POA: Yes) --Presented to [place] ED for evaluation of left knee pain after a fall at home, non-ambulatory at baseline secondary to CP but concerns for current facility ability to meet her needs --XR L KNEE/HIP/ANKLE negative for acute osseous injury --CT L KNEE negative for fracture, small joint effusion noted --[place] (more content not included)... [facility] 09-21-2024 Note HNO ID: [id number] Author: SHERYL HUITRON RN Service: Care Management Author Type: Registered Nurse Type: Care Mgt Progress Note Filed: 09/21/2024 10:53 Note Text: CARE MANAGEMENT PROGRESS NOTE SERVICE DATE: 09/21/2024 SERVICE TIME: 9:19 AM LOS: 0 days Patient requesting a SNF Provider List for [place]: [id number]. [facility] SNF Provider List for [place] given to patient at bedside. Needs Prior to Discharge: To Be Determined, Facility or Agency Choices, Accepting Facility, Insurance Authorization, Precertification, Discharge Transportation CM Dept to Follow. 09/21/24 10:50 AM Patient provided SNF choices in order of preference: [facility] AND [facility] SNF Referrals sent in [facility]. Precert Needed for SNF. CM Dept to Follow. SIGNATURE: Sheryl Huitron RN PATIENT NAME: Randolph Hunter DATE: September 21, 2024 TIME: 9:19 AM [facility] 09-21-2024 Note HNO ID: [id number] Author: SHERYL HUITRON RN Service: Care Management [...] discussed PT AND OT recommendations for SNF. [facility] SNF provider list given to patient. Patient informed she needs to provide 3 SNF choices in order of preference and she will require an insurance authorization/precert for SNF once she has an accepting SNF. [place] of Choice Given: Yes Level of Care Discussed: [facility] Facility Financial Disclosure Provided: Yes Financial Disclosure Comments: [facility] SNF Provider Lists [id number] an [id number] given to patient at bedside to review and provide SNF choices. Provider List: [facility]pc Facility Provider list within the patient's requested geographic area shared with the patient/family: Yes within: 15 miles of zip code: [address] (Patient also requesting a list for zip code [address].) Quality and resource use metrics shared with [...] DATE: September 21, 2024 TIME: 8:38 AM [facility] 09-20-2024 Note HNO ID: [id number] Author: CONCEPCION KEEN MD Service: Hospital Medicine Author Type: Physician Type: Progress Notes Filed: 09/20/2024 16:05 Note Text: DEPARTMENT OF HOSPITAL MEDICINE PROGRESS NOTE SERVICE DATE: 09/20/2024 SERVICE TIME: 4:04 PM Hospital Medicine/Primary Attending: Concepcion Keen,* NIGHT AND WEEKEND COVERAGE: [employer] COVERAGE: Days: [phone], please page attending physician. Nights: [phone], please page [place] [facility] Night coverage pager [phone]. Subjective INTERVAL HPI: Seen and examined on [...] Drain Duration External Collection Device 09/18/24 2332 [facility] 1 day Reviewed lines and needs to [...] (cerebral palsy) (HCC) (POA: Yes) --Presented to [place] ED for evaluation of left knee pain after a fall at home, non-ambulatory at baseline secondary to CP but concerns for current facility ability to meet her needs --XR L KNEE/HIP/ANKLE negative for acute osseous injury --CT L KNEE negative for fracture, small joint effusion noted --Pain control as needed. On Lidoderm patch, Tylenol. Added oxycodone (more content not included)... [facility] 09-19-2024 Note HNO ID: [id number] Author: CONCEPCION KEEN MD Service: Hospital Medicine Author Type: Physician Type: Progress Notes Filed: 09/19/2024 14:41 Note Text: DEPARTMENT OF HOSPITAL MEDICINE PROGRESS NOTE SERVICE DATE: 09/19/2024 SERVICE TIME: 2:33 PM Hospital Medicine/Primary Attending: Concepcion Keen,* NIGHT AND WEEKEND COVERAGE: [employer] COVERAGE: Days: [phone], please page attending physician. Nights: [phone], please page [place] [facility] Night coverage pager [phone]. Subjective INTERVAL HPI: Seen and examined on [...] Drain Duration External Collection Device 09/18/24 2332 [facility] <1 day Reviewed lines and needs to [...] (cerebral palsy) (HCC) (POA: Yes) --Presented to [place] ED for evaluation of left knee pain [...] --CM consulted for (more content not included)... [facility] 09-19-2024 Note HNO ID: [id number] Author: JADE SPARROW RN Service: Care Management Author Type: Registered Nurse Type: Care Mgt Initial Assessment Filed: 09/19/2024 10:28 Note Text: CARE MANAGEMENT: ASSESSMENT AND DISCHARGE PLAN SERVICE DATE: September 19, 2024 SERVICE TIME: 10:26 AM PCP: Raf Casey MD, MD Primary Contact: Extended Emergency Contact Information Primary Emergency Contact: Harper Hunter (HCPOA) Mobile Relation: Son Admission Status: Observation Insurance Provider: [facility] DUAL COMPLETE O POS SNP Discharge Planning requested by: Per Department Practice Potential Transition Plans To Be Determined Advance Directives Current Advance Directive: Health Care Power of Supervisor Telephone Clerks, Living Will In Chart: Yes Up To Date and Valid: Yes Current Living Arrangements and Support Lives with: Spouse/significant other Type of Residence: Assisted Living Facility Does the patient have to climb stairs at home?: No Care Facility Name: [facility] Support: Children, Spouse/significant other How do you manage to accomplish the following: Independent: Medication Management Needs Assistance: Bathe/Shower, Dress, Going to the bathroom Dependent: Ambulation, Meals/Meal Prep, Transportation to appointments/community Current Services/Equipment Current Post-Acute Service(s): DME Current DME Type: Wheelchair-manual, Other: See Comment, Bedside commode (Lift Chair) Discharge Planning Patient Goal(s): Increase strength [place] of Choice Explained: [place] of Choice Given: No Reason Not Given: Unable to complete with this assessment - revisit Are you interested in bedside delivery of your medications? No Discharge Planning Participant(s): Patient Patient/Family Comments: Caregiver Assessment: Caregiver is ready, willing and able to meet the patient's needs as recommended by the inter-professional team: Other: See Comment (From [facility]) Transport at Discharge: Transportation Arrangements: Ambulance Needs Prior to Discharge: Needs Prior to Discharge: OT/PT Evaluation Post-Acute Discharge Plan: Review of the chart and met with the patient. The patient states she lives with her at [facility] in [place]. States pivots from her lift chair to her wheelchair and able to pivot from her wheelchair to her BSC. The patient states the [facility] provides her meals and laundry services, the patient takes care of her own medications. PT evals- Pending. CM department will continue to follow for DC needs. SIGNATURE: Jade Sparrow RN PATIENT NAME: Randolph Hunter DATE: September 19, 2024 TIME: 10:26 AM [facility] 09-02-2024 Note HNO ID: [id number] Author: GILMER COTTON, PhD Service: ? Author Type: Psychologist Type: Progress Notes Filed: 09/02/2024 12:02 Note Text: [facility] Behavioral Health Department Progress Note Randolph [facility] 09/02/2024 [id number] PROVIDER: Gilmer Cotton, PhD CPT Code: Time: 50 minutes Setting: Due to the federal emergency declaration and the need for ongoing mental health services, the following visit was completed virtually and informed consent obtained orally to reduce the risk of COVID-19 exposure. Oral consent to services related to virtual visits was obtained after information was sent via Quidsi or read to patient if Haiku Deckhart not available." Parties Present: Patient Treatment Modality/Interventions: Cognitive Behavioral Reassurance/Supportive Insight oriented Problem solving Processing of emotions Psychoeducation MENTAL STATUS: Mood: variable Affect: mood-congruent Thoughts/Associations:goal directed Suicidal/Homicidal Ideation: None expressed or evidenced Other Prominent Symptoms: Therapy Focus/Content of Session: Self-care, Stress management, Mood/affect regulation, Family relationships, Self-esteem, and Coping with chronic illness Friend is bringing Khadra to have lunch w pt and THEY [...] up to speed new game she likes: NIR 6 dice pt trying to get out [...] directed once a month. blood sugar diagnostic (TistagamesUCH VERIO TEST STRIPS) test strip Test blood [...] daily. calcium car (more content not included)... [facility] 08-05-2024 Note HNO ID: [id number] Author: GILMER COTTON, PhD Service: ? Author Type: Psychologist Type: Progress Notes Filed: 08/05/2024 12:29 Note Text: [facility] Behavioral Health Department Progress Note Randolph [facility] 08/05/2024 [id number] PROVIDER: Gilmer Cotton, PhD CPT Code: Time: [...] directed once a month. blood sugar diagnostic (TistagamesUCH VERIO TEST STRIPS) test strip Test blood [...] Psychiatric Medication Issues: see med record DIAGNOSIS: [place] I: Depressive Disorder recurrent Morbidly Obese CP [place] II : Deferred [place] III : See medical history [place] IV: Health [place] V: GAF 60-51 Moderate symptoms or moderate difficulty in social, o (more content not included)... [facility] 07-10-2024 Emergency department Note Pt resting quietly in bed with blanket over face. Respirations even and non labored. No coughing noted at this time. Await transport by [facility]. [facility] 07-10-2024 Emergency department Note Pt resting quietly in bed with blanket over face. Respirations even and non labored. No coughing noted at this time. Await transport by [facility] Loom[facility]. Dr. Jha at bedside. Dr. Jha to [...] TABLET Place under the tongue. NYSTATIN (MYCOSTATIN) [id number] UNIT/GM POWDER Apply topically 2 times daily. [...] Resource Strain: Low Risk (01/02/2020) Received from [facility] Overall Financial Resource Strain (CARDIA) Difficulty of Paying Living Expenses: Not very hard Food Insecurity: Food Insecurity Present (01/02/2020) Received from [facility] Hunger Vital Sign Worried About Running Out of Food in the Last Year: Sometimes true Ran Out of Food in the Last Year: Never true Transportation Needs: Unmet Transportation Needs (01/02/2020) Received from [facility] PRAPARE - Transportation Lack of Transportation (Medical): Yes Lack of Transportation (Non-Medical): Yes Physical Activity: Inactive (01/02/2020) Received from [facility] Exercise Vital Sign Days of Exercise per Week: 0 days Minutes of Exercise per Session: 0 min Stress: Stress Concern Present (01/02/2020) Received from [facility] [place] [employer] - Occupational Stress Questionnaire Feeling of Stress : Rather much Social Connections: Moderately Isolated (01/02/2020) Received from [facility] Social Connection and Isolation Panel [NHANES] Frequency of Communication with Friends and Family: More than three times a week Frequency of Social Gatherings with Friends and Family: Never Attends Catholic Services: Never Active Member of Clubs or Organizations: No Attends Club or Organization Meetings: Patient declined Marital Status: SCREENINGS PHYSICAL EXAM ED Triage Vitals Temp Heart Rate Resp BP 07/09/241 07/09/24232307/09/24232307/09/242323 36.9 C (98.4 F) 96 20 99/66 [...] DEPARTMENT COURSE and DIFFERENTIAL DIAGNOSIS/MDM: Vitals: Vitals: 07/09/241 07/09/242323 BP: 99/66 Pulse: 96 Resp: 20 [...] chest x-ray. [facility], to include gabapentin and [place] Chest x-ray negative for consolidation upon my independent interpretation. Patient still coughing after glucagon but coughing ceased after Decadron. The patient will be discharged The patient is in agreement with this plan. Diagnoses as of 07/10/24202 Acute cough Medications glucagon (human recombinant) injection 1 mg (1 mg IntraMUSCular Given 07/09/24 2340) dexAMETHasone (PF) (Decadron) injection 8 mg (8 mg Oral Given 07/10/24 0024) REVAL: CRITICAL CARE TIME None CONSULTS: None PROCEDURES: Unless otherwise noted below, none Procedures FINAL IMPRESSION 1. Acute cough DISPOSITION Discharge 07/10/2024 12:55:44 AM PATIENT REFERRED TO: [facility] Address: [address] [place] [phone] Schedule an appointment as soon as possible [...] signed) Emergency Medicine Provider Александр Jha MD 07/10/24202 documented in this encounter [facility] 07-10-2024 Hospital Discharge instructions Александр Jha MD - 07/10/2024 12:56 AM EST If the Tessalon Perles do not work, you may purchase cough syrup [id number]. Please return to the emergency department if your symptoms change or worsen. The following attachments cannot be sent through Care Everywhere.Cough in Adults (Chinese)documented in this encounter [facility] 07-10-[address] Jha at bedside. [facility] 07-09-[address] Jha to bedside. Pt given water. [facility] 07-09-2024 Physician Emergency department Note EMERGENCY DEPARTMENT [...] TABLET Place under the tongue. NYSTATIN (MYCOSTATIN) [id number] UNIT/GM POWDER Apply topically 2 times daily. [...] Resource Strain: Low Risk (01/02/2020) Received from [facility] Overall Financial Resource Strain (CARDIA) Difficulty of Paying Living Expenses: Not very hard Food Insecurity: Food Insecurity Present (01/02/2020) Received from [facility] Hunger Vital Sign Worried About Running Out of Food in the Last Year: Sometimes true Ran Out of Food in the Last Year: Never true Transportation Needs: Unmet Transportation Needs (01/02/2020) Received from [facility] PRAPARE - Transportation Lack of Transportation (Medical): Yes Lack of Transportation (Non-Medical): Yes Physical Activity: Inactive (01/02/2020) Received from [facility] Exercise Vital Sign Days of Exercise per Week: 0 days Minutes of Exercise per Session: 0 min Stress: Stress Concern Present (01/02/2020) Received from [facility] [place] [employer] - Occupational Stress Questionnaire Feeling of Stress : Rather much Social Connections: Moderately Isolated (01/02/2020) Received from [facility] Social Connection and Isolation Panel [NHANES] Frequency of Communication with Friends and Family: More than three times a week Frequency of Social Gatherings with Friends and Family: Never Attends Catholic Services: Never Active Member of Clubs or Organizations: No Attends Club or Organization Meetings: Patient declined Marital Status: SCREENINGS PHYSICAL EXAM ED Triage Vitals Temp Heart Rate Resp BP 07/09/24 2321 07/09/24 2324 07/09/24 2324 07/09/24 2323 36.9 C (98.4 F) 96 20 99/66 [...] DEPARTMENT COURSE and DIFFERENTIAL DIAGNOSIS/MDM: Vitals: Vitals: 07/09/241 07/09/242323 BP: 99/66 Pulse: 96 Resp: 20 [...] chest x-ray. I reviewed external records from: [facility] demonstrating 62 prescriptions, to include gabapentin and Newport Chest x-ray negative for consolidation upon my independent interpretation. Patient still coughing after glucagon but coughing ceased after Decadron. The patient will be discharged The patient is in agreement with this plan. Diagnoses as of 07/10/24202 Acute cough Medications glucagon (human recombinant) injection 1 mg (1 mg IntraMUSCular Given 07/09/24 2340) dexAMETHasone (PF) (Decadron) injection 8 mg (8 mg Oral Given 07/10/24 0024) REVAL: CRITICAL CARE TIME None CONSULTS: None PROCEDURES: Unless otherwise noted below, none Procedures FINAL IMPRESSION 1. Acute cough DISPOSITION Discharge 07/10/2024 12:55:44 AM PATIENT REFERRED TO: [facility] Address: [facility] [address], [place] [id number] Schedule an appointment as soon as possible [...] signed) Emergency Medicine Provider Александр Jha MD 07/10/24202 [facility] 06-30-2024 Note HNO ID: [id number] Author: GILMER COTTON, PhD Service: ? Author Type: Psychologist Type: Progress Notes Filed: 06/30/2024 11:53 Note Text: [facility] Progress Note Randolph Hunter 06/30/2024 [id number] PROVIDER: Gilmer Cotton, PhD CPT Code: Time: 50 minutes Setting: Due to the federal emergency declaration and the need for ongoing mental health services, the following visit was completed virtually and informed consent obtained orally to reduce the risk of COVID-19 exposure. Oral consent to services related to virtual visits was obtained after information was sent via Quidsi or read to patient if MyChart not [...] be a leader to work w the Ushi and can work w the Active-Semi That may likely help her mood in [...] directed once a month. blood sugar diagnostic (Faraday Bicycles VERIO TEST STRIPS) test strip Test blood [...] test meter (CO (more content not included)... [facility] 05-02-2024 Note HNO ID: [id number] Author: GILMER COTTON, PhD Service: ? Author Type: Psychologist Type: Progress Notes Filed: 05/02/2024 12:11 Note Text: [facility] Progress Note Randolph Hunter 05/02/2024 [id number] PROVIDER: Gilmer Cotton, PhD CPT Code: Time: [...] directed once a month. blood sugar diagnostic (Faraday Bicycles VERIO TEST STRIPS) test strip Test blood [...] awake. PT/INR test meter (COAGUCHEK XS PRO) [facility] [place]. Dx: pulmonary embolism, V58.61 COMPOUNDED PRESCRIPTION Hospital bed all electric with adjustable head and feet. 415.19; 343.8; 782.3; 787.91; V43.65 No current facility-administered medications for this visit. Psychiatric Medication Issues: No change from previous appointment DIAGNOSIS: [place] I: Depressive Disorder recurrent Morbidly Obese CP [place] II : Deferred [place] III : See medical history [place] IV: Health [place] V: GAF 60-51 Moderate symptoms or moderate difficulty in social, occupational or school functioning TREATMENT PROGRESS/ASSESSMENT: Progressing satisfactorily. TREATMENT PLAN/GOALS: (more content not included)... [facility] 03-04-2024 Note HNO ID: [id number] Author: GILMER COTTON, PhD Service: ? Author Type: Psychologist Type: Progress Notes Filed: 03/04/2024 12:06 Note Text: [facility] Progress Note Randolph [place] 03/04/2024 [id number] PROVIDER: Gilmer Cotton, PhD CPT Code: Time: [...] in mgmt and the maintenance of the blMacromill and food sanitarian is slowly improving Lots of change in [...] directed once a month. blood sugar diagnostic (TistagamesUCH VERIO TEST STRIPS) test strip Test blood [...] Issues: No change from previous appointment DIAGNOSIS: [place] I: Depressive Disorder recurrent Morbidly Obese CP [place] II : Deferred [place] III : See me (more content not included)... [facility] 02-10-2024 History of Present illness Narrative Assessments [...] Test Results/Process Orders 10 [] Staff telephones BOOKMOBILE CLERK, Nursing Homes/Clarify Orders 10 [] Routine Transfer [...] with plan . documented in this encounter [facility] 02-10-2024 Hospital Discharge instructions Maria Isabel Wilson RN - 02/10/2024 10:45 AM EDT Ordered treatment completed and patient is healed. Patient discharged without any issues. All questions answered. Call the clinic if your wound reopens or a new wound appears at [phone]. Edema/Swelling: Avoid standing for long periouds of [...] promote wound healing documented in this encounter [facility] 01-29-2024 Note HNO ID: [id number] Author: GILMER COTTON, PhD Service: ? Author Type: Psychologist Type: Progress Notes Filed: 01/29/2024 12:00 Note Text: [facility] Progress Note Randolph Hunter 01/29/2024 [id number] PROVIDER: Gilmer Cotton, PhD CPT Code: Time: [...] directed once a month. blood sugar diagnostic (PIERIS ProteolabTOUCH VERIO TEST STRIPS) test strip Test blood [...] Issues: No change from previous appointment DIAGNOSIS: [place] I: Depressive Disorder recurrent Morbidly Obese CP [place] II : Deferred [place] III : See medical history [place] IV: Health [place] V: GAF 60-51 Moderate symptoms or moderate difficulty in social, occupational or school functioning TREATMENT PROGRESS/ASSESSMENT: Progressing (more content not included)... [facility] 01-27-2024 History of Present illness Narrative Associated Order(s): Debridement Post-Procedure Diagnose(s): Pressure ulcer of right foot, stage 3 (HCC) Images from the original note were not included. [facility] Wound Care Progress Note CHIEF COMPLAINT: [...] provider verified the correct patient, procedure, equipment, technology support analyst, and site/side marked as required. Debridement Details [...] attached Discharge Instructions documented in this encounter [facility] 01-27-2024 Hospital Discharge instructions Maria Isabel Wilson RN - 01/27/2024 1:15 PM EDT Follow-up Appointments: Return Appointment in 1 week. Call [facility] at [phone], [facility] at [phone], or [facility] Wound center at [phone]. Edema/Swelling: Avoid standing for long periouds of [...] secure with tape. documented in this encounter [facility] 01-27-2024 Note [facility] Wound Care Progress Note CHIEF COMPLAINT: [...] provider verified the correct patient, procedure, equipment, technology support analyst, and site/side marked as required. Debridement Details [...] Paper tape Please see attached Discharge Instructions [facility] 01-20-2024 History of Present illness Narrative Associated Order(s): Debridement Post-Procedure Diagnose(s): Pressure ulcer of right foot, stage 3 (HCC) Images from the original note were not included. [facility] WND OSTOMY HBO [address] [facility] [id number] Loc: [phone] Wound Care Visit - New Patient Progress [...] , Rfl: cholecalciferol (Vitamin D-3) 50 MCG (2000 UT) capsule, Take 2,000 Units by mouth [...] ti,es a day, Disp: , Rfl: HYDROcodone-acetaminophen (Newport) 5-325 MG tablet, Take 1 tablet by [...] the tongue., Disp: , Rfl: nystatin (Mycostatin) 724719 UNIT/GM powder, Apply topically 2 times daily., [...] provider verified the correct patient, procedure, equipment, technology support analyst, and site/side marked as required. Debridement Details [...] (Active) Wound Image 01/20/24 1448 Site Assessment Red;[place] 01/20/24 1448 Andra-Wound Assessment [place] 01/20/24 1448 [...] Test Results/Process Orders 10 [x] Staff telephones [facility], Nursing Homes/Clarify Orders 10 [] Routine [...] or more Points) documented in this encounter [facility] 01-20-2024 Hospital Discharge instructions Maria Isabel Wilson RN - 01/20/2024 2:45 PM EDT Follow-up Appointments: Return Appointment in 1 week. Call [facility] at [phone], [facility] at [phone], or [facility] Wound center at [phone]. Edema/Swelling: Avoid standing for long periouds of [...] secure with tape. documented in this encounter [facility] 01-20-2024 Note Encounter addended b y: Tania Osei RN on: 01/21/2024 10:33 AM Actions taken: Care Teams modified, LDA properties accepted, Charge Capture section accepted [facility] 12-25-2023 Note HNO ID: [id number] Author: GILMER COTTON, PhD Service: ? 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 daughter is a month [...] directed once a month. blood sugar diagnostic (Faraday Bicycles VERIO TEST STRIPS) test strip Test blood [...] Issues: No change from previous appointment DIAGNOSIS: [place] I: Depressive Disorder recurrent Morbidly Obese CP [place] II : Deferred [place] III (more content not included)... [facility] 12-16-2023 Emergency department Note Patient wheeled out ED for transport to residence. discharge instructions sent to facility with patient. No further questions. Respirations even and non labored. No acute distress. A&O x4. Gifty Cornell RN 12/16/23 0015 [facility] 12-16-2023 Emergency department Note Patient wheeled out [...] Resource Strain: Low Risk (01/02/2020) Received from [facility] Overall Financial Resource Strain (CARDIA) Difficulty of Paying Living Expenses: Not very hard Food Insecurity: Food Insecurity Present (01/02/2020) Received from [facility] Hunger Vital Sign Worried About Running Out of Food in the Last Year: Sometimes true Ran Out of Food in the Last Year: Never true Transportation Needs: Unmet Transportation Needs (01/02/2020) Received from [facility] PRAPARE - Transportation Lack of Transportation (Medical): Yes Lack of Transportation (Non-Medical): Yes Physical Activity: Inactive (01/02/2020) Received from [facility] Exercise Vital Sign Days of Exercise per Week: 0 days Minutes of Exercise per Session: 0 min Stress: Stress Concern Present (01/02/2020) Received from [facility] [place] [employer] - Occupational Stress Questionnaire Feeling of Stress : Rather much Social Connections: Moderately Isolated (01/02/2020) Received from [facility] Social Connection and Isolation Panel [NHANES] Frequency of Communication with Friends and Family: More than three times a week Frequency of Social Gatherings with Friends and Family: Never Attends Catholic Services: Never Active Member of Clubs or [...] foot x-ray to evaluate for osteomyelitis. [BM] [address] Sun from 2021 patient admitted for similar process with left leg cellulitis and left foot ulcer at that time had negative x-ray for osteomyelitis and was transition to oral antibiotics Augmentin and doxycycline on discharge. [BM] 184 Signed out to oncoming emergency medicine physician [...] about putting in her observation unit at [facility] for 24 hours of IV antibiotics versus [...] MD 12/15/231935 Patient to room 7 via [facility] for c/o a left foot ulcer, lower leg erythema, and a headache. Patient reports she has had her foot ulcer for a couple of months. V/S obtained, call light within reach. documented in this encounter [facility] 12-15-2023 Hospital Discharge instructions Karen Gallardo MD [...] Care Everywhere.Cellulitis (Skin Infection) Discharge Instructions, Adult (Chinese)documented in this encounter [facility] 12-15-2023 Emergency department Triage note Patient to room 7 via [facility] for c/o a left foot ulcer, lower leg erythema, and a headache. Patient reports she has had her foot ulcer for a couple of months. V/S obtained, call light within reach. [facility] 12-15-2023 Physician Emergency department Note EMERGENCY DEPARTMENT [...] Resource Strain: Low Risk (01/02/2020) Received from [facility] Overall Financial Resource Strain (CARDIA) Difficulty of Paying Living Expenses: Not very hard Food Insecurity: Food Insecurity Present (01/02/2020) Received from [facility] Hunger Vital Sign Worried About Running Out of Food in the Last Year: Sometimes true Ran Out of Food in the Last Year: Never true Transportation Needs: Unmet Transportation Needs (01/02/2020) Received from [facility] PRAPARE - Transportation Lack of Transportation (Medical): Yes Lack of Transportation (Non-Medical): Yes Physical Activity: Inactive (01/02/2020) Received from [facility] Exercise Vital Sign Days of Exercise per Week: 0 days Minutes of Exercise per Session: 0 min Stress: Stress Concern Present (01/02/2020) Received from [facility] [employer] - Occupational Stress Questionnaire Feeling of Stress : Rather much Social Connections: Moderately Isolated (01/02/2020) Received from [facility] Social Connection and Isolation Panel [NHANES] Frequency of Communication with Friends and Family: More than three times a week Frequency of Social Gatherings with Friends and Family: Never Attends Catholic Services: Never Active Member of Clubs or [...] m (5' 5") ED Course as of 12/15/231848 [facility] Dec 15, 20231826 73-year-old female presents emergency department [...] [BM] ED Course User Index [BM] Gloria BanguraDO Diagnoses as of 12/15/231848 Diabetic ulcer of [...] Emergency Medicine Provider Gloria Bangura DO 12/15/231848 [facility] 12-15-2023 Physician Emergency department Note This patient [...] about putting in her observation unit at [facility] for 24 hours of IV antibiotics versus discharging home with oral antibiotics. After shared decision-making she elected to go home. I do think that this is a safe plan. She lives in assisted living and they can help her with continuing to monitor her wound. Gave her strict return precautions and discharged in stable condition. Karen Gallardo MD 12/15/231935 [facility] 07-20-2023 Emergency department Note Physician's arrived; pt removed from urine collection device and pts own attends placed on pt per her request. Pts belongings in bag at bedside. Report to Physician's. Veronika Bae RN 07/20/23 0844 [facility] 07-20-2023 Emergency department Note Physician's arrived; pt [...] Patient still in radiology. Pia Caraballo RN 07/19/232318 Dispo per imaging :) Chasidy Fernandez RN 07/19/232253 Pt placed up for discharge. No discharge paperwork complete at this time. Once orders are complete and discharge paperwork complete by ER Pt will be discharged. Chasidy Fernandez RN [...] No family history. She lives in a assisted facility and is on Coumadin as she [...] of the left knee Report Dictated on Workstation: Motwin Electronically Signed By: Phan Sepulveda MD Electronically [...] of the left knee Report Dictated on Workstation: Motwin Electronically Signed By: Phan Sepulveda MD Electronically [...] Height: 1.575 m (5' 2") Medications HYDROcodone-acetaminophen (Newport) 5-325 MG per tablet 1 tablet (has no administration in time range) HYDROcodone-acetaminophen (Newport) 5-325 MG per tablet 1 tablet (1 tablet Oral Given 07/19/232030) 72-year-old female presents for frequent falls, is in a halfway for this purpose, complains of right hip pain and right knee pain and neck pain MDM elements: The patient presented with chief complaint of see above. The differential diagnosis associated with this patient's presentation includes right hip pain from contusion versus fracture of the right hip versus pelvic fracture. Will evaluate bilateral knees for underlying fractures. Patient is on Coumadin and fails [place] CT head rules and CT C-spine rules by virtue of age, needs CT head and CT cervical spine as well. Pain controlled with Newport. No lab work required, this was mechanical fall to which the patient is very vulnerable and for which purpose she is in a halfway with PT and 24/7 wheelchair. Our workup consisted of ordering/reviewing: X-ray bilateral knees x-ray right femur CT pelvis without contrast, CT head and neck without contrast. To aid in management, I performed an independent interpretation of Xray(s) see below CT scan(s) see below. I also reviewed external records from [facility] to obtain collateral history. The patient will [...] this is why she lives in a halfway with 24/7 monitoring and physical therapy that visits her every day. I encouraged her to stay in her wheelchair to get around safely, and if she is transferring from the wheelchair to the toilet or other maneuvers at home, she should do so with nursing staff or PT nearby. She is already on Newport at home for pain so no additional [...] Mendez who is her osteoarthritis specialist in [place]; this is very good follow-up. The patient [...] toilet when she fell. She resides at [address] She currently is working with a physical therapist and is in a wheelchair. Patient hooked up to SUPR due to incontinence. She also has right knee bruising that is from her repeatedly hitting it on her wheelchair. She denies hitting her head or neck during fall. She is on coumadin. Call light within reach. documented in this encounter [facility] 07-20-2023 Emergency department Note [facility] with an ambulette/wheelchair van. Chasidy MCCRACKEN spoke with Physician's to inform them that the pt is non ambulatory and needed a stretcher. Physician's states they will have a stretcher here "within the hour." Veronika Bae RN 07/20/23 0717 [facility] 07-20-2023 Hospital Discharge instructions Cuba Anna MD [...] attachments cannot be sent through Care Everywhere.Osteoarthritis (Chinese)Preventing Falls in Older Adults (Chinese)Hip Pain ED (Chinese)documented in this encounter [facility] 07-20-2023 Emergency department Note Patient pressed call light to request pain medication. States pain is in shoulders and down the back from laying on the tables. MD notified Gifty Cornell RN 07/20/23 0044 [facility] 07-19-2023 Emergency department Note Report given to Gifty MCCRACKEN & Chasidy MCCRACKEN. Patient still in radiology. Pia Caraballo RN 07/19/23 2319 [facility] 07-19-2023 Emergency department Note Dispo per imaging :) Chasidy Fernandez RN 07/19/232253 [facility] 07-19-2023 Emergency department Note Pt placed up for discharge. No discharge paperwork complete at this time. Once orders are complete and discharge paperwork complete by ER DR Pt will be discharged. Chasidy Fernandez RN 07/19/232251 [facility] 07-19-2023 Emergency department Note This RN requested orders from ER DR. Chasidy Fernandez RN 07/19/232025 [facility] 07-19-2023 Emergency department Triage note Patient is here for right hip pain. She was transferring to the toilet when she fell. She resides at [address] She currently is working with a physical therapist and is in a wheelchair. Patient hooked up to SUPR due to incontinence. She also has right knee bruising that is from her repeatedly hitting it on her wheelchair. She denies hitting her head or neck during fall. She is on coumadin. Call light within reach. [facility] 07-19-2023 Physician Emergency department Note EMERGENCY DEPARTMENT [...] No family history. She lives in a assisted facility and is on Coumadin as she [...] Height: 1.575 m (5' 2") Medications HYDROcodone-acetaminophen (Newport) 5-325 MG per tablet 1 tablet (has no administration in time range) HYDROcodone-acetaminophen (Newport) 5-325 MG per tablet 1 tablet (1 tablet Oral Given 07/19/232030) 72-year-old female presents for frequent falls, is in a halfway for this purpose, complains of right hip pain and right knee pain and neck pain MDM elements: The patient presented with chief complaint of see above. The differential diagnosis associated with this patient's presentation includes right hip pain from contusion versus fracture of the right hip versus pelvic fracture. Will evaluate bilateral knees for underlying fractures. Patient is on Coumadin and fails [place] CT head rules and CT C-spine rules by virtue of age, needs CT head and CT cervical spine as well. Pain controlled with Newport. No lab work required, this was mechanical fall to which the patient is very vulnerable and for which purpose she is in a halfway with PT and 24/7 wheelchair. Our workup consisted of ordering/reviewing: X-ray bilateral knees x-ray right femur CT pelvis without contrast, CT head and neck without contrast. To aid in management, I performed an independent interpretation of Xray(s) see below CT scan(s) see below. I also reviewed external records from [facility] to obtain collateral history. The patient will [...] this is why she lives in a halfway with 24/7 monitoring and physical therapy that visits her every day. I encouraged her to stay in her wheelchair to get around safely, and if she is transferring from the wheelchair to the toilet or other maneuvers at home, she should do so with nursing staff or PT nearby. She is already on [place] at home for pain so no additional [...] Mendez who is her osteoarthritis specialist in [place]; this is very good follow-up. The patient [...] Medicine Provider Cuba Anna MD 07/20/23 0110 [facility] 09-06-2022 Emergency department Note RN called back from Residence for report after patient left. This RN updated RN. No questions or concerns Lucy Jones RN 09/06/22 1115 [facility] 09-06-2022 Emergency department Note RN called back from Residence for report after patient left. This RN updated RN. No questions or concerns Lucy Jones RN 09/06/22 1115 This RN attempted report at [facility] for patient. RN's busy, engineering secretary took RN name and number to return call for report if wanted. Lucy Jones RN 09/06/22 1018 DM ETA 20-30 min ([phone]) Lucy Jones RN 09/06/22 0936 Patient resting with eyes closed. Respirations even and unlabored. RN called about work order for call light / panel. Will be there soon to fix. uLcy Jones RN 09/06/22 0944 Pt back in [...] Bárbara Hogan RN 09/06/22225 Report of to bárbraa Younger RN 09/06/22220 Emergency Department Encounter Location: [facility] Patient: Patsy Juan : 1950 [...] 445 ms QTC Interval 457 ms P [place] 49 degrees QRS [place] -29 degrees T Wave [place] 11 degrees HI Interval 149 ms XR shoulder 2+ views [...] Result Upper pelvis is excluded from the kfwwf-ff-tetq. No fracture or dislocation of the imaged [...] are mis-transcribed.) OSMAN MCCORMACK MD Acute Care [facility] Osman Mccormack MD 09/06/22 1523 Emergency Department Encounter Location: [facility] Patient: Patsy Juan : 1950 [...] 445 ms QTC Interval 457 ms P [place] 49 degrees QRS [place] -29 degrees T Wave [place] 11 degrees HI Interval [address] head wo IV [...] Result Upper pelvis is excluded from the nluwe-dg-mqee. No fracture or dislocation of the imaged [...] RN 09/06/22 0221 documented in this encounter [facility] 09-06-2022 Emergency department Note This RN attempted report at [facility] for patient. RN's busy, engineering secretary took RN name and number to return call for report if wanted. Lucy Jones RN 09/06/22 1018 [facility] 09-06-2022 Emergency department Note DM ETA 20-30 min ([id number]) Lucy Jones RN 09/06/22 0953 [facility] 09-06-2022 Hospital Discharge instructions Gloria Frost DO [...] through Care Everywhere.Getting Up From a Fall (Chinese)documented in this encounter [facility] 09-06-2022 Emergency department Note Patient resting with eyes closed. Respirations even and unlabored. RN called about work order for call light / panel. Will be there soon to fix. Lucy Jones RN 09/06/22 0944 [facility] 09-06-2022 History of Present illness Narrative Department of Trauma / Critical Care Tertiary Survey Date of Trauma: 09/06/2022 1:36 AM MARIANELA/HPI: 72 y.o. female status post fall from standing. The incident happened around 0120 on 09/06/22 at [facility]. When the event happened the patient was [...] consolidation or pulmonary edema. Report Dictated on Workstation: [employer] Electronically Signed By: Tiago Charles Electronically Signed Date/Time: 09/06/2022 2:12 AM EDT XR pelvis 1 or 2 views Result Date: 09/06/2022 Patient Name: PATSY JUAN : 1950 Exam Date/Time: 09/06/2022 02:07 Procedure: XR PELVIS 1-2 VIEWS Ordering Provider: HUTSON RICHARD Reason For Exam: TRAUMA PELVIS: CLINICAL INDICATION: Pain, trauma. TECHNIQUE: AP. Technical note: Upper pelvis is excluded from the bdhdr-ss-zups. COMPARISON: None. FINDINGS: There is no evidence for fracture or dislocation. The hips joints are unremarkable. The imaged sacroiliac joints are normal. No bone lesion is identified. There is no soft tissue abnormality. Surgical clips project over the right groin. Upper pelvis is excluded from the tmnfq-tj-kujr. No fracture or dislocation of the imaged [...] RLE: AT LUE: AT LLE: AT Ct [place] APRN - GRAHAM 09/06/22 9:09 AM documented in this encounter [facility] 09-06-2022 Emergency department Note Pt back in room Lucy Jones RN 09/06/22 0832 [facility] 09-06-2022 Emergency department Note Pt at CT Lucy Jones RN 09/06/22 0826 [facility] 09-06-2022 Emergency department Note Patient yelling in room, due to call light not working in wall. Patient aware, patient door and curtain open. RN went in at this time. Patient wanted to check to see if she had BM. RN also made sure purewick in good position. RN will get vitals and look at orders at this time Lucy Jones RN 09/06/22 0739 [facility] 09-06-2022 Note NOTE: This result is for medical treatment only. Analysis performed using non-forensic procedures. [facility] 09-06-2022 Emergency department Note Pt to x-ray in stable condition. Bárbara Hogan RN 09/06/22 0226 [facility] 09-06-2022 Emergency department Note Report of to bárbara Younger RN 09/06/22220 [facility] 09-06-2022 Emergency department Note Bed: 23 Expected date: Expected time: Means of arrival: Comments: SX TEAM Aaron Wallace RN 09/06/22220 T [facility] 09-06-2022 Physician Emergency department Note Emergency Department Encounter Location: [facility] Patient: Patsy Juan : 1950 Date of evaluation: 09/06/2022 ED Provider: OSMAN MCCORMACK MD Time received sign-out: 07 Patsy Juan was checked out to me [...] 445 ms QTC Interval 457 ms P [place] 49 degrees QRS [place] -29 degrees T Wave [place] 11 degrees HI Interval 149 ms XR shoulder 2+ views [...] Result Upper pelvis is excluded from the ckhyv-ay-ubnr. No fracture or dislocation of the imaged pelvis. Report Dictated on Electronically Signed By: iTago Charles Electronically Signed Date/Time: 09/06/2022 2:12 AM [...] are mis-transcribed.) OSMAN MCCORMACK MD Acute Care [facility] Osman Mccormack MD 09/06/22 1523 [employer] Phone: 09-06-2022 Physician Emergency department Note Emergency Department Encounter Location: [facility] Patient: Patsy Juan : 1950 [...] 445 ms QTC Interval 457 ms P [place] 49 degrees QRS [place] -29 degrees T Wave [place] 11 degrees HI Interval [address] head wo IV [...] Result Upper pelvis is excluded from the eygdn-lt-nscc. No fracture or dislocation of the imaged [...] Solutions Gloria Frost DO Resident 09/06/22 1314 [employer] Phone: 04-25-2022 Miscellaneous Notes Left a detailed message for patient. Let her know that new PCP will need to be notified if there is issues with filling medicaiton. Advised to contact office with questions. I will send patient a QUIQt message asking about PCP. I think she is now seeing a physician at her assisted living facility. Images from the original note were not included. DENIED. Isabela Petit LPN Prior Authorization has been completed online at [employer] for Cycanocobalamin, will await response. WILLIS- [id number] Please keep encounter open until final decision has been received and documented from insurance company. Isabela Petit LPN documented in this encounter [facility] 03-12-2022 Note Hospitalist Discharg e Summary Randolph [...] results reviewed, no signs of osteomyelitis. Appreciate brake drum lathe operator recommendations On the day of discharge patient's [...] MG extended re (more content not included)... [facility] 03-12-2022 Hospital course Narrative Images from the [...] results reviewed, no signs of osteomyelitis. Appreciate brake drum lathe operator recommendations On the day of discharge patient's [...] as: DESYREL Vitamin D3 50 MCG (1999 [place]) Caps warfarin 5 MG tablet Commonly known as: COUMADIN STOP taking these medications furosemide 20 MG tablet Commonly known as: LASIX guaiFENesin 600 MG extended release tablet Commonly known as: MUCINEX Where to Get Your Medications These medications were sent to [address] [phone] - [phone] [place] [address] amoxicillin-clavulanate 875-125 MG per tablet doxycycline hyclate 100 MG capsule polyethylene glycol 17 g packet Recommended Follow-up: No follow-up provider specified. Readmission Risk Risk of Unplanned Readmission: 16 Complexity of Follow up: [] Moderate Complexity: follow up within 7-14 calendar days (47254) [x] Severe Complexity: follow up within 7 calendar days (20900) Follow up Testing, Pending results or Referrals [...] MD Division of Hospitalist Medicine Inpatient Medical Services/[facility] 03/12/2022, 2:01 PM Images from the original [...] results reviewed, no signs of osteomyelitis. Appreciate brake drum lathe operator recommendations On the day of discharge patient's [...] Your Medications These medications were sent to [place], [place] - [address] [place] [address] [place] - P [phone] - F [phone] [place], [place] [address] [address] amoxicillin-clavulanate 875-125 MG per tablet doxycycline hyclate 100 MG capsule polyethylene glycol 17 g packet Recommended Follow-up: No follow-up provider specified. Readmission Risk Risk of Unplanned Readmission: 15 Complexity of Follow up: [] Moderate Complexity: follow up within 7-14 calendar days (35419) [x] Severe Complexity: follow up within 7 calendar days (79696) Follow up Testing, Pending results or Referrals [...] MD Division of Hospitalist Medicine Inpatient Medical Services/[facility] 03/11/2022, 1:36 PM documented in this encounter [facility] Work Phone: 03-11-2022 History of Present illness Narrative [facility] called this nurse to change time of quill picking machine operator. Pt agreed to stay till morning. This nurse called [place] [phone] to inform about new quill picking machine operator time of 9:30 am. Report called to Nurse Copeland at [facility]. Occupational Therapy Facility/Department: [facility] Occupational Therapy Daily Treatment Note Name: Randolph Hunter : 1950 Date of Service: 03/11/2022 Pt's chart reviewed. Holding therapy today due to >5 INR. Will continue to follow and re-attempt once within therapeutic range. Dianne Schuster OT Physical Therapy Facility/Department: [facility] Daily Treatment Note Name: Randolph Hunter : 1950 Date of Service: 03/11/2022 Pt's chart reviewed. Holding therapy today due to >5 INR. Will continue to follow and re-attempt once within therapeutic range. Jaida Matamoros HOB GRINDER Occupational Therapy Facility/Department: [facility] Occupational Therapy Initial Assessment [...] erythematosus (HCC), and Type 2 diabetes mellitus ([facility]). Past Surgical History: has no past surgical [...] Social/Functional History Social/Functional History Lives With: Spouse ([place] Type of Home: Assisted living Home Layout: [...] Assistance: Non-ambulatory Transfer Assistance: Needs assistance Active Private Branch Exchange Service Adviser: No Patient's Private Branch Exchange Service Adviser Info: daughter Mode of Transportation: Car Education: na Occupation: Retired Type of Occupation: worked at [employer] Objective Heart Rate: 68 Heart Rate Source: [...] degrees shoulder flexion grossly observed AM-PAC Score [facility] Inpatient Daily Activity Raw Score: 16 (03/10/22 1444) [facility] Inpatient ADL T-Scale Score : 35.96 (03/10/22 1444) ADL Inpatient [facility] 0-100% Score: 53.32 (03/10/22 1444) ADL Inpatient [facility] G-Code Modifier : CK (03/10/22 144) Goals Short Term Goals Time Frame for [...] were not included. Hospitalist Progress Note 03/10/2022 [phone]: Please page me ([phone]) for patient care issues. [phone]: Please page IMS night Hospitalist for any [...] day insulin lispro 0-8 Units SubCUTAneous TID WC [...] results reviewed, no signs of osteomyelitis. Appreciate brake drum lathe operator recommendations Pharmacy is managing Coumadin dosing. -am labs, replace lytes prn -increase activity -DVT prophylaxis: [] Lovenox [] Heparin [] SCDs [x] Encourage ambulation [x] Already on Anticoagulation Advance Directive: Limited Discharge planning: TBD Demetris Stone MD Division of Hospitalist Medicine Inpatient Medical Services/[facility] PAGER: [phone] Occupational Therapy Facility/Department: [facility] Occupational Therapy Initial Assessment [...] Will follow. Thank you. Physical Therapy Facility/Department: [facility] Physical Therapy Initial Assessment [...] Social/Functional History Social/Functional History Lives With: Spouse ([place] Type of Home: Assisted living Home Layout: [...] Assistance: Non-ambulatory Transfer Assistance: Needs assistance Active Private Branch Exchange Service Adviser: No Patient's Private Branch Exchange Service Adviser Info: daughter Mode of Transportation: Car Education: na Occupation: Retired Type of Occupation: worked at [employer] Vision/Hearing Vision Vision: Within Functional Limits Vision [...] to side-step toward the HOB. Able to wire coating operator metal FWW for 10 seconds with moderate assistance [...] were not included. Hospitalist Progress Note 03/09/2022 [phone]: Please page me ([phone]) for patient care issues. 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 [...] results reviewed, no signs of osteomyelitis. Appreciate brake drum lathe operator recommendations On the day of discharge patient's [...] Your Medications These medications were sent to [address] P [phone] - F [phone] [place] [address] (more content not included)... [facility] 03-11-2022 Hospital Discharge instructions Cleo Graff LPN - 03/11/2022 11:55 AM EDT Your physician has ordered skilled home care services for you. Your home care will be provided by: [facility] [phone] Viktoriya Danielson RN - 03/11/2022 5:43 PM EDT Continuity of Care Form Patient Name: Randolph Hunter : 1950 Admit date: 03/08/2022 Discharge date: 03/12/22 Code Status Order: Limited Advance Directives: Admitting Physician: Kushal Gaines DO PCP: No primary care provider on file. Discharging Nurse: Viktoriya Danielson Discharging Hospital Unit/Room#: 144/1441 Discharging Unit Emergency Contact: Extended Emergency Contact Information Primary Emergency Contact: ElayneLisha Mobile Relation: Child Secondary Emergency Contact: DaleAdam ([place]) Mobile Relation: Spouse Past Surgical History: History [...] Dependent Dressing Dependent Toileting Dependent Feeding Independent Windrower Operator Assisted Med Delivery whole Wound Care Documentation [...] 600 [P.O.:600] Out: 800 [Urine:800] Safety Concerns: { FARHAN Safety Concerns:402294369} Impairments/Disabilities: {[facility] Impairments/Disabilities:228887587 } Nutrition Therapy: Current Nutrition Therapy: - [...] select all that are sent with patient): Glasses, Jewelry RN SIGNATURE: CASE MANAGEMENT/SOCIAL WORK SECTION Inpatient Status Date: Readmission Risk Assessment Score: Readmission Risk Risk of Unplanned Readmission: 15 Discharging to Facility/ Agency Name: Address: Phone: Fax: Dialysis Facility (if applicable) Name: Address: Dialysis Schedule: Phone: Fax: Printer Floor Covering Assistant/Workers' Compensation Commissioner signature: {Esignature:356776046} PHYSICIAN SECTION Prognosis: {Prognosis:3690271354} Condition at Discharge: { Patient Condition:468082982} Rehab Potential (if transferring to Rehab): {Prognosis:8551160167} Recommended Labs or Other Treatments After Discharge: Physician Certification: I certify the above information and transfer of Randolph Hunter is necessary for the continuing treatment of the diagnosis listed and that she requires {Admit to Appropriate Level of Care:56937} for {GREATER/LESS:596119256} 30 days. Update Admission H&P: {CHP DME Changes in HandP:688373158} PHYSICIAN SIGNATURE: {Esignature:768574094} documented in this encounter [employer] Phone: 03-06-2022 Instructions Steven Pelaez - 03/06/2022 9:21 AM EDT Would recommend natalia to left foot daily Continue with padding on dressing to eliminate pressure Would highly recommend use of heel boots while sleeping to prevent pressure sores from developing. documented in this encounter [facility] 03-06-2022 History of Present illness Narrative FOLLOW [...] (H) 4.3 - 5.6 % Final Comment: [place] Diabetes [employer] guidelines indicate that patients with [...] directed once a month. blood sugar diagnostic ([employer] VERIO TEST STRIPS) test strip Test blood [...] H* Mental Status Change Penicillins Hives Dioxicillin Lcgeyvc-Omb-Wks Red* Myalgia PAST SURGICAL HISTORY Procedure Laterality [...] Type 2 diabetes, controlled, with neuropathy (HCC) PLAN: Ulceration of left foot appears smaller [...] wrapping with gauze documented in this encounter [facility] 02-28-2022 Miscellaneous Notes Patient called in requesting order for wound care. Patient stated that she is at a assisted living facility and they stated by law they most have and order from physician to preform wound care. Please place order. Erlinda Ramsey LPN documented in this encounter [facility] 02-27-2022 History of Present illness Narrative Patient daughter picked up natalia. Erlinda Ramsey LPN documented in this encounter [facility] 02-27-2022 Miscellaneous Notes Returned patients call. Informed patient that her daughter can come quill picking machine operator natalia we will just have to make [...] instructions. Patient can come to office to quill picking machine operator natalia. We will schedule a nurse visit. Erlinda Ramsey LPN Images from the original note were not included. Steven Matamoros RN; [facility] Podiatry Pool 52 minutes ago (3:52 PM) I have not yet ordered the natalia to pharmacy. If she wishes to quill picking machine operator at office, that may be the easiset option Steven Pelaez DPM Patient called in asking if Natalia has been sent to pharmacy? Patient asking if she can come by and quill picking machine operator Natalia from the office? Patient states she had to cancel this morning's appointment because her transportation never showed. Patient asking for order for Natalia to be sent to [facility] [place]. Rescheduled follow up appointment for 03/06. documented in this encounter [facility] 02-12-2022 Miscellaneous Notes Patient called in looking for results. Message from Dr. Pelaez given to patient. She verbalized understanding. documented in this encounter [facility] 02-10-2022 History of Present illness Narrative Radiology [...] 2022 9:22 AM documented in this encounter [facility] 02-10-2022 Instructions Steven Pelaez - 02/10/2022 8:37 AM EDT Recommend natalia to left foot ulceration daily Would recommend placing a donut hole pad on insert to offload ulceration when wearing shoes. Color ulceration with magic marker Step on insert Place pad around marking at site of ulceration Follow-up in 2 weeks Use loyda wraps for swelling reduction. documented in this encounter [facility] 02-10-2022 History of Present illness Narrative Chief Complaint: This 71 year old female who presents with chief complaint:ulceration of left 1st metatarsal HPI Patient presents to clinic for evaluation of left foot. Patient has ulceration to the plantar aspect of left 1st metatarsa. It apparently has been present for 1.5 months. She has been seeing a brake drum lathe operator in [place] who has been debriding and applying topical antibiotic cream. Patient is not currently wearing surgical shoe. She had similar ulceraiton last year and was treated with natalia. When she mentioned this to her brake drum lathe operator, she was referred here. She was advised [...] directed once a month. blood sugar diagnostic ([employer] VERIO TEST STRIPS) test strip Test blood [...] H* Mental Status Change Penicillins Hives Dioxicillin Zdiywic-Xiz-Bvu Red* Myalgia PAST SURGICAL HISTORY Procedure Laterality [...] diabetes mellitus, with fat layer exposed (HCC) PLAN: 1. History and physical examination performed. [...] Pelaez DPM Podiatry [address] [facility] [address] Dept: [phone] Dept AMB ROOMING INTAKE FLOWSHEET DATA Risk [...] Erlinda Ramsey LPN documented in this encounter [facility] 11-30-2021 Miscellaneous Notes Left a detailed message [...] Bonnie Allen LPN documented in this encounter [facility] 11-19-2021 Miscellaneous Notes Detailed message left with [...] or narrative: no documented in this encounter [facility] 11-11-2021 Miscellaneous Notes Patient calling to ask [...] no diet changes. documented in this encounter [facility] 10-30-2021 Miscellaneous Notes Patient notified of results [...] or narrative: no documented in this encounter [facility] 10-15-2021 Miscellaneous Notes Left a detailed message [...] Ava Rdz LPN documented in this encounter [facility] 10-15-2021 Miscellaneous Notes Spoke with pt and went over the results. Pt verbalizes understanding. Ava Rdz LPN documented in this encounter [facility] 10-14-2021 History of Present illness Narrative Radiology [...] 2021 3:03 PM documented in this encounter [facility] 10-09-2021 Miscellaneous Notes Pt called and is notified of providers message. Pt voices understanding, and is going to call [facility] [employer]. Del Decker RN TC to pt, left message to return call to office. Alberto Carpio LPN It looks like there is a valid prescription sent 10/03/2021 for HCQ 200mg daily #28 to [facility] authorized by Kuldeep [place] Usually we don't prescribe and the new accepting provider should be able to fill crossover prescriptions. Thanks, Edwin Cobian PA-C Patient calls and states that her previous railway shunter had moved out of country. Patient states that she is in process of moving into assisted living and the [facility] will see her in regards to this. Patient asking if this can be filled for a 30 day supply? Please review and advise, Lexi Arce RN TC to pt. LM to call office, ask for triage nurse to get updates. Travis Chambers LPN Management Engineer accepting patient transfer should refill medication. Who are the current and future providers? We generally don't prescribe this medication. Thanks, Edwin Cobian PA-C Pt is asking if provider will order this medication for her for 1 month. She states her railway shunter will not refill it for her because [...] Del Decker RN documented in this encounter [facility] 10-08-2021 Miscellaneous Notes Patient instructed of dosage with teach back method. Verbalizes understanding. Same dose, recheck 2 weeks. Thanks, Edwin Cobian PA-C Last INR: INR (POCT) 2.1(EXT) 10/08/2021 Current dose of coumadin is: 7.5 mg Wed/Fri and 5.0 mg all other days. Last date of dose change: 09/11/21. Previous INR (date and result): 2.6 Additional Clinical Information or narrative: yes: Pt states no changes in diet denies increase in greens or alcohol use, no missed doses, not on any antibiotics, no increased bruising or bleeding issues. documented in this encounter [facility] 10-01-2021 Miscellaneous Notes Patient instructed of dosage [...] or bleeding issues. documented in this encounter [facility] 10-01-2021 Miscellaneous Notes Refaxed form with both [...] call and advise. documented in this encounter [facility] 09-27-2021 Miscellaneous Notes Patient notified of results, verbalizes understanding of instructions. Travis Chambers LPN Thyroid is improving but still slightly low. Can we change synthroid to 150 mcg and recheck tsh in six weeks documented in this encounter [facility] 09-26-2021 Instructions Baudilio Sultana MD - 09/26/2021 [...] usual activities immediately. documented in this encounter [facility] 09-26-2021 History of Present illness Narrative Patient presents with: Physical: moving into assisted living HPI: Patient presents today for office visit for follow up. Needs forms completed for assisted living facility[facility] in [place]. She is both excited and nervous about the move. Will be transitioning to [facility] care. She asked us to do the [place] through October until the new physician has [...] directed once a month. blood sugar diagnostic ([employer] VERIO TEST STRIPS) test strip Test blood [...] H* Mental Status Change Penicillins Hives Dioxicillin Zmpndfd-Pme-Mkc Red* Myalgia PAST MEDICAL HISTORY Diagnosis Date [...] forms completed. Will give script for her blue eye. - CONSULT TO PHYSICAL THERAPY - CONSULT TO BOOT AND SHOE LABORER 2. Carotid artery disease, unspecified laterality, unspecified [...] physician and prn. documented in this encounter [facility] 09-25-2021 Miscellaneous Notes Patient notified and voiced understanding. Roxann Gomez MA Same recheck one week Patient called in with home INR. Last INR: INR (POCT) 2.2 (ext) 09/25/2021 Current dose of coumadin is: 7.5 mg on Weds and Fri, 5 mg all other days. Previous INR (date and result): 1.9 on 09/11/21 Additional Clinical Information or narrative: no documented in this encounter [facility] 09-18-2021 Miscellaneous Notes Patient notified and voiced [...] or bleeding issues. documented in this encounter [facility] 2021 Miscellaneous Notes TC to pt, notified [...] Recheck INR in one week. Najma Dobbs APRN.CNP Last INR: INR (POCT) 1.9 (EXT) 2021 [...] or missed doses. documented in this encounter [facility] 01-29-2021 History of Present illness Narrative Radiology [...] PERIPHERAL IV DATA: Not applicable SIGNED BY: Ynes Santillan RT(R) January 29, 2021 1:01 PM documented in this encounter [facility] 01-04-2018 History of Past i llness Narrative [...] of this encounter (statuses as of 09/16/2021) [facility] History of Past illness Narrative* Problem Noted [...] of this encounter (statuses as of 09/18/2021) [facility] History of Past illness Narrative* Problem Noted [...] of this encounter (statuses as of 2021) [facility] History of Past illness Narrative* Problem Noted [...] of this encounter (statuses as of 09/25/2021) [facility] History of Past illness Narrative* Problem Noted [...] of this encounter (statuses as of 09/26/2021) [facility] History of Past illness Narrative* Problem Noted [...] of this encounter (statuses as of 09/27/2021) [facility] History of Past illness Narrative* Problem Noted [...] of this encounter (statuses as of 10/01/2021) [facility] History of Past illness Narrative* Problem Noted [...] of this encounter (statuses as of 10/01/2021) [facility] History of Past illness Narrative* Problem Noted [...] of this encounter (statuses as of 10/09/2021) [facility] History of Past illness Narrative* Problem Noted [...] of this encounter (statuses as of 10/15/2021) [facility] History of Past illness Narrative* Problem Noted [...] of this encounter (statuses as of 10/15/2021) [facility] History of Past illness Narrative* Problem Noted [...] of this encounter (statuses as of 10/15/2021) [facility] History of Past illness Narrative* Problem Noted [...] of this encounter (statuses as of 10/30/2021) [facility] History of Past illness Narrative* Problem Noted [...] of this encounter (statuses as of 11/11/2021) [facility] History of Past illness Narrative* Problem Noted [...] of this encounter (statuses as of 11/19/2021) [facility] History of Past illness Narrative* Problem Noted [...] of this encounter (statuses as of 11/30/2021) [facility] History of Past illness Narrative* Problem Noted [...] of this encounter (statuses as of 12/23/2021) [facility] History of Past illness Narrative* Problem Noted [...] of this encounter (statuses as of 02/10/2022) [facility] History of Past illness Narrative* Problem Noted [...] of this encounter (statuses as of 02/11/2022) [facility] History of Past illness Narrative* Problem Noted [...] of this encounter (statuses as of 02/12/2022) [facility] History of Past illness Narrative* Problem Noted [...] of this encounter (statuses as of 02/27/2022) [facility] History of Past illness Narrative* Problem Noted [...] of this encounter (statuses as of 03/03/2022) [facility] History of Past illness Narrative* Problem Noted [...] of this encounter (statuses as of 03/06/2022) [facility] History of Past illness Narrative* Problem Noted [...] of this encounter (statuses as of 04/25/2022) [facility] History of Past illness Narrative* Problem Noted [...] of this encounter (statuses as of 06/25/2022) [facility] History of Past illness Narrative* Problem Noted [...] of this encounter (statuses as of 05/04/2023) [facility] History of Past illness Narrative* Problem Noted [...] whether generalized or localized, lower leg 12/26/2013 0712/2013 Cough 09/09/2013 11/08/2014 Laryngitis 09/09/2013 11/08/2014 Sinusitis, [...] of this encounter (statuses as of 05/04/2023) [facility] History of pulmonary embolism Personal history of pulmonary embolism documented in this encounter [facility] note* Diagnosis History of pulmonary embolism Personal history of pulmonary embolism documented in this encounter [facility] note* Diagnosis Cerebral palsy, unspecified type (HCC)- [...] or radiculitis nos documented in this encounter [facility] noteNo assessment information availableWOhio State [facility] Work Phone: Evaluation note* Diagnosis Acquired hypothyroidism Unspecified hypothyroidism documented in this encounter [facility] note* Diagnosis Disorder of bone and cartilage Disorder of bone and cartilage, unspecified documented in this encounter [facility] note* Diagnosis Encounter for screening mammogram for breast cancer documented in this encounter [facility] note* Diagnosis Type 2 diabetes, controlled, with neuropathy (HCC)- Primary Type II or unspecified type diabetes mellitus with neurological manifestations, not stated as uncontrolled Diabetic ulcer of toe 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, with fat layer exposed (HCC) documented in this encounter [facility] note* Diagnosis Diabetic ulcer of toe 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, with fat layer exposed (HCC) documented in this encounter [facility] note* Diagnosis Diabetic ulcer of toe 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, with fat layer exposed (HCC)- Primary documented in this encounter [facility] note* Diagnosis Diabetic ulcer of toe 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, with fat layer exposed (HCC)- Primary Type 2 diabetes, controlled, with neuropathy (HCC) Type II or unspecified type diabetes mellitus with neurological manifestations, not stated as uncontrolled documented in this encounter [facility] note* Diagnosis Diabetic ulcer of other part 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, with fat layer exposed (HCC)- Primary Cellulitis of left lower extremity Cellulitis and abscess of leg, except foot PE (pulmonary thromboembolism) (HCC) Chronic pulmonary embolism Cellulitis Cellulitis and abscess of unspecified site documented in this encounter [facility] Work Phone: Evaluation note* Diagnosis Diabetic ulcer of toe 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, with fat layer exposed ([facility])- Primary documented in this encounter [facility] note* Diagnosis Fall, initial encounter- Primary Skin tear of hand without complication Cephalohematoma Other injuries to scalp Acute pain of right shoulder documented [facility] this encounter [facility] Diagnosis Exacerbation of asthma, unspecified asthma severity, unspecified whether persistent Hyperparathyroidism, primary ([facility]) Primary hyperparathyroidism Neuropathy Mononeuritis of unspecified site Osteoarthritis of AC (acromioclavicular) joints, bilateral Vitamin D deficiency Unspecified vitamin D deficiency Blister Other, multiple, and unspecified sites, blister, without mention of infection Candidiasis of breast Other candidiasis of other specified sites Lupus anticoagulant disorder ([facility]) Primary hypercoagulable state Cerumen in auditory canal on examination Chronic kidney disease, unspecified CKD stage Fall, sequela Knee pain, unspecified chronicity, unspecified laterality Chronic thromboembolic pulmonary hypertension (HCC) Other chronic pulmonary heart diseases Strain of calf muscle, unspecified laterality, subsequent encounter Traumatic ecchymosis of lower back, sequela Yeast infection of the skin Candidiasis of skin and nails documented in this encounter [facility] note* Diagnosis Frequent falls- Primary Right hip pain Pain in joint, pelvic region and thigh Contusion of right knee, initial encounter Osteoarthritis, unspecified osteoarthritis type, unspecified site documented in this encounter [facility] Diagnosis Diabetic ulcer of left foot associated with diabetes mellitus due to underlying condition, unspecified part of foot, unspecified ulcer stage ([facility])- Primary Left leg cellulitis [facility] Diagnosis Pressure ulcer of right foot, stage 3 ([facility])- Primary [facility] Diagnosis Chronic right shoulder pain Pain in joint, shoulder region documented in this encounter [facility] note* Diagnosis Acute cough- Primary [facility] Diagnosis Fall at home, initial encounter- Primary Cerebral palsy, unspecified type ([facility]) Brachial neuritis or radiculitis Brachial neuritis or radiculitis nos Acute pain of right shoulder Left knee pain, unspecified chronicity Diabetic polyneuropathy associated with type 2 diabetes mellitus (HCC) Neuropathy Mononeuritis of unspecified site Type 2 diabetes, controlled, with neuropathy (HCC) Type II or unspecified type diabetes mellitus with neurological manifestations, not stated as uncontrolled Atherosclerosis of atka coronary artery of atka heart without angina pectoris Other pulmonary embolism without acute cor pulmonale, unspecified chronicity (HCC) Debility Debility, unspecified documented in this encounter [facility] note* Diagnosis Fall at home, initial encounter- [...] Neuropathy Mononeuritis of unspecified site Atherosclerosis of atka coronary artery of atka heart without angina pectoris Other pulmonary embolism without acute cor pulmonale, unspecified chronicity (HCC) Debility Debility, unspecified documented in this encounter [facility] note* Diagnosis Fall at home, initial encounter- [...] manifestations, not stated as uncontrolled Atherosclerosis of atka coronary artery of atka heart without angina pectoris Other pulmonary embolism without acute cor pulmonale, unspecified chronicity (HCC) Debility Debility, unspecified documented in this encounter [facility] note* Diagnosis Primary osteoarthritis of left knee- Primary Primary localized osteoarthrosis, lower leg documented in this encounter [facility] note* Diagnosis Sprain of left ankle, unspecified ligament, initial encounter- Primary Ankle instability, left Chronic pain of left ankle documented in this encounter [facility] note* Diagnosis Sprain of left ankle, unspecified ligament, initial encounter Ankle instability, left documented in this encounter [facility] for referral (narrative)* Diagnostic Procedure Only (Routine) - Pending Review Specialty Diagnoses / Procedures Referred By Contac t Referred To Contact BR IMAGING Diagnoses Encounter for screening mammogram for breast cancer Procedures FUAD SCREENING SCREENING MAMMOGRAPHY BI 2-VIEW BREAST INC CAD Baudilio Sultana MD [address] [place] [address] [facility] [address] [place] [address] Referral ID Status Reason Start Date Expiration Date Visits Requested Visits Authorized [id number] Pending Review Auto-Generat ed Referral 12/18/2021 01/17/2023 1 1 T [facility] for referral (narrative)* Diagnostic Procedure Only (Routine) - Closed Specialty Diagnoses / Procedures [facility] To Contact XR IMAGING Diagnoses Diabetic ulcer of toe 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, with fat layer exposed (HCC) Procedures XR FOOT GENERAL 3V AP/LAT/OBL LEFT RADEX FOOT COMPLETE MINIMUM 3 VIEWS Steven Pelaez [address] [place] [address] Xr Imaging Referral ID Status Reason Start Date Expiration Date V isits Requested Visits Authorized [id number] Closed Auto-Generate d Referral 02/10/2022 03/12/2023 1 1 [facility] for referral (narrative)* Diagnostic Procedure Only (Routine) - Closed Specialty Diagnoses / Procedures Referred By Contac t Referred To Contact XR IMAGING Diagnoses Diabetic ulcer of toe 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, with fat layer exposed (HCC) Procedures XR FOOT GENERAL 3V AP/LAT/OBL LEFT RADEX FOOT COMPLETE MINIMUM 3 VIEWS Steven Pelaez [address] [place] [address] Xr Imaging Referral ID Status Reason Start Date Expiration Date V isits Requested Visits Authorized [id number] Closed Auto-Generate d Referral 02/10/2022 03/12/2023 1 1 [facility] for visit Narrative* Diagnostic Procedure Only (Routine) - Closed Specialty Diagnoses / Procedures Referred By Enrique cueva Referred To Contact Radiology / RADIO BONE DENSITY [facility] Diagnoses Disorder of bone and cartilage [M89.9, M94.9] Procedures BONE DENSITY ADULT 225 RdBaudilio MD [address] [place] [address] Radio Bone Density [facility] [address] [place] [address] Referral ID Status Reason Start Date Expiration Date Visits Re quested Visits Authorized [id number] Closed 10/14/2021 06/21/2022 1 1 [facility] for visit Narrative* Diagnostic Procedure Only (Routine) - Closed Specialty Diagnoses / Procedures Referred By Enrique cueva Referred To Contact XR IMAGING Diagnoses Diabetic ulcer of toe 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, with fat layer exposed (HCC) Procedures XR FOOT GENERAL 3V AP/LAT/OBL LEFT RADEX FOOT COMPLETE MINIMUM 3 VIEWS Steven Pelae[address] [place] [address] Xr Imaging Referral ID Status Reason Start Date Expiration Date V isits Requested Visits Authorized [id number] Closed Auto-Generate d Referral 02/10/2022 03/12/2023 1 1 [facility] for visit Narrative* Diagnostic Procedure Only (Routine) - Closed Specialty Diagnoses / Procedures Referred By Enrique cueva Referred To Contact XR IMAGING Diagnoses Sprain of left ankle, unspecified ligament, initial encounter Ankle instability, left Procedures XR TIBIA FIBULA 2V AP/LAT LEFT RADIOLOGIC EXAMINATION TIBIA & FIBULA 2 VIEWS Steven Pelaez [address] [place] [address] Phone: tel: fax: [place] [address] Referral ID Status Reason Start Date Expiration Date V isits Requested Visits Authorized [id number] Closed Auto-Generate d Referral 10/27/2024 11/26/2025 1 1 [facility] Summary Purpose Family History No Family History [...] FoundDocuments on File Type Date Recorded Patient Project Product Manager Expl anation Advance Directive(s) 11/24/2016 2:36 PM Advance Directive(s) 10/24/2016 10:01 AM Advance Directive(s) 12/26/2013 2:29 PM Documents on File Type Date Recorded Patient Project Product Manager Expl anation Advance Directive(s) 11/24/2016 2:36 PM Advance Directive(s) 10/24/2016 10:01 AM Advance Directive(s) 12/26/2013 2:29 PM Advance Directive Response Recorded Date/ Time Advance Directives Yes January 04 7:42pm Living Will Yes April 22 10:07pm Power of Supervisor Telephone Clerks Yes April 22, 2021 10:07pm Documents on File Type Date Recorded Patient Project Product Manager Expl anation Advance Directive(s) 12/26/2013 2:29 PM Documents on File Type Date Recorded Patient Project Product Manager Expl anation Advance Directive(s) 12/26/2013 2:29 PM Latest Code Status on File Code Status Date Activated Date Inactivated Comments Limited 03/08/2022 4:21 PM Intubation/Re-intubation at the time of arrest: No Defibrillation/Cardioversion: No Chest Compressions: No Resuscitative Medications: Yes Healthcare Agents on File Name Relationship Healthcare Agent Relationshi p Communication Lisha Elayne Child Primary Decision Maker (Neura) Documents on File Type Date Recorded Patient Project Product Manager Expl anation DNR (Do Not Resuscitate) 12/18/2023 10:52 AM Reason for Referral Specialty Diagnoses / Procedures Referred By Contac t Referred To Contact [facility] Diagnoses Cerebral palsy, unspecified type (HCC) Procedures CONSULT TO BOOT AND SHOE LABORER OCCUPATIONAL THERAPY EVAL HIGH COMPLEX 60 MINS Baudilio Sultana MD [address] [place] [address] [facility] [address] [address] Referral ID Status Reason Start Date Expiration Date Visits Requested Visits Authorized [id number] Pending Review Auto-Generat ed Referral 09/26/2021 09/26/2022 1 1 Specialty Diagnoses / Procedures Referred By Contac t Referred To Contact [facility] Diagnoses Cerebral palsy, unspecified type (HCC) Procedures CONSULT TO PHYSICAL THERAPY PHYSICAL THERAPY EVALUATION HIGH COMPLEX 45 MINS Baudilio Sultana MD [address] [place] [address] [facility] [address] [address] Referral ID Status Reason Start Date Expiration Date Visits Requested Visits Authorized [id number] Pending Review Auto-Generat ed Referral 09/26/2021 09/26/2022 1 1 Specialty Diagnoses / Procedures Referred By Contac t Referred To Contact [facility] Diagnoses Carotid artery disease, unspecified laterality, unspecified type (HCC) Procedures US CAROTID ARTERIES DUSTIN VAS LAB DUPLEX SCAN EXTRACRANIAL ART COMPL BI STUDY Baudilio Sultana MD [address] [place] [address] [facility] [address] [address] Referral ID Status Reason Start Date Expiration Date Visits Requested Visits Authorized [id number] Additional Clinical Info Needed Auto-Generat ed Referral 09/26/2021 09/26/2022 1 1 Specialty Diagnoses / Procedures Referred By Enrique t Referred To Contact Wound Care / IP Unit Diagnoses Diabetic ulcer of other part 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, with fat layer exposed (HCC) Ritika Fonseca, INHALATION THERAPIST - FISH FRYER [address] [place] [address] [address] [facility] [address] [place] [address] Referral ID Status Reason Start Date Expiration Date V isits Requested Visits Authorized [id number] Open Specialty Services Required 03/11/2022 03/11/2023 1 1 Scheduling Instructions [facility] Wound Care/Hyperbaric [facility] [address] [place] [address] [facility] Wound Center/Hyperbaric Medicine is located on the ground floor of [facility] (just behind registration). Bring photo ID and [...] section and content) DATE CREATED AUTHOR 12/11/2017 [facility] DATE CREATED AUTHOR AUTHOR'S ORGANIZ ATION 12/11/2017 [facility] DATE CREATED AUTHOR AUTHOR'S ORGANIZ ATION 03/31/2022 [facility] DATE CREATED AUTHOR AUTHOR'S ORGANIZ ATION 09/08/2022 [facility] DATE CREATED AUTHOR AUTHOR'S ORGANIZ ATION 07/11/2024 [facility] DATE CREATED AUTHOR AUTHOR'S ORGANIZ ATION 10/01/2024 [facility] DATE CREATED AUTHOR AUTHOR'S ORGANIZ ATION 11/09/2024 [facility] nt DATE CREATED AUTHOR AUTHOR'S ORGANIZ ATION 12/06/2024 [facility] DATE CREATED AUTHOR AUTHOR'S ORGANIZ ATION 12/12/2024 [facility] Source Comments (unrecognize d section and content) In the event this informatio n is protected by the Federal Confidentiality of Alcohol and Drug Abuse Patient Records regulations: The Federal rules restrict any use of the information to criminally investigate or prosecute any alcohol or drug abuse patient.[facility] the event this information is protected by the Federal Confidentiality of Alcohol and Drug Abuse Patient Records regulations: The Federal rules restrict any use of the information to criminally investigate or prosecute any alcohol or drug abuse patient.[facility] the event this information is protected by the Federal Confidentiality of Alcohol and Drug Abuse Patient Records regulations: The Federal rules restrict any use of the information to criminally investigate or prosecute any alcohol or drug abuse patient.[facility] the event this information is protected by the Federal Confidentiality of Alcohol and Drug Abuse Patient Records regulations: The Federal rules restrict any use of the information to criminally investigate or prosecute any alcohol or drug abuse patient.[facility] the event this information is protected by the Federal Confidentiality of Alcohol and Drug Abuse Patient Records regulations: The Federal rules restrict any use of the information to criminally investigate or prosecute any alcohol or drug abuse patient.[facility] the event this information is protected by the Federal Confidentiality of Alcohol and Drug Abuse Patient Records regulations: The Federal rules restrict any use of the information to criminally investigate or prosecute any alcohol or drug abuse patient.[facility] the event this information is protected by the Federal Confidentiality of Alcohol and Drug Abuse Patient Records regulations: The Federal rules restrict any use of the information to criminally investigate or prosecute any alcohol or drug abuse patient.[facility] the event this information is protected by the Federal Confidentiality of Alcohol and Drug Abuse Patient Records regulations: The Federal rules restrict any use of the information to criminally investigate or prosecute any alcohol or drug abuse patient.[facility] the event this information is protected by the Federal Confidentiality of Alcohol and Drug Abuse Patient Records regulations: The Federal rules restrict any use of the information to criminally investigate or prosecute any alcohol or drug abuse patient.[facility]woodsIn the event this information is protected by the Federal Confidentiality of Alcohol and Drug Abuse Patient Records regulations: The Federal rules restrict any use of the information to criminally investigate or prosecute any alcohol or drug abuse patient.[facility] the event this information is protected by the Federal Confidentiality of Alcohol and Drug Abuse Patient Records regulations: The Federal rules restrict any use of the information to criminally investigate or prosecute any alcohol or drug abuse patient.[facility]woodsIn the event this information is protected by the Federal Confidentiality of Alcohol and Drug Abuse Patient Records regulations: The Federal rules restrict any use of the information to criminally investigate or prosecute any alcohol or drug abuse patient.[facility]woodsIn the event this information is protected by [...] or prosecute any alcohol or drug abuse patient.[facility]woodsIn the event this information is protected by the Federal Confidentiality of Alcohol and Drug Abuse Patient Records regulations: The Federal rules restrict any use of the information to criminally investigate or prosecute any alcohol or drug abuse patient.[facility]In the event this information is protected by the Federal Confidentiality of Alcohol and Drug Abuse Patient Records regulations: The Federal rules restrict any use of the information to criminally investigate or prosecute any alcohol or drug abuse patient.[facility]woodsIn the event this information is protected by the Federal Confidentiality of Alcohol and Drug Abuse Patient Records regulations: The Federal rules restrict any use of the information to criminally investigate or prosecute any alcohol or drug abuse patient.[facility]woodsIn the event this information is protected by the Federal Confidentiality of Alcohol and Drug Abuse Patient Records regulations: The Federal rules restrict any use of the information to criminally investigate or prosecute any alcohol or drug abuse patient.[facility]woodsIn the event this information is protected by the Federal Confidentiality of Alcohol and Drug Abuse Patient Records regulations: The Federal rules restrict any use of the information to criminally investigate or prosecute any alcohol or drug abuse patient.[facility]In the event this information is protected by the Federal Confidentiality of Alcohol and Drug Abuse Patient Records regulations: The Federal rules restrict any use of the information to criminally investigate or prosecute any alcohol or drug abuse patient.[facility]In the event this information is protected by the Federal Confidentiality of Alcohol and Drug Abuse Patient Records regulations: The Federal rules restrict any use of the information to criminally investigate or prosecute any alcohol or drug abuse patient.[facility]woodsIn the event this information is protected by the Federal Confidentiality of Alcohol and Drug Abuse Patient Records regulations: The Federal rules restrict any use of the information to criminally investigate or prosecute any alcohol or drug abuse patient.[facility]woodsIn the event this information is protected by the Federal Confidentiality of Alcohol and Drug Abuse Patient Records regulations: The Federal rules restrict any use of the information to criminally investigate or prosecute any alcohol or drug abuse patient.[facility]woodsIn the event this information is protected by the Federal Confidentiality of Alcohol and Drug Abuse Patient Records regulations: The Federal rules restrict any use of the information to criminally investigate or prosecute any alcohol or drug abuse patient.[facility]In the event this information is protected by the Federal Confidentiality of Alcohol and Drug Abuse Patient Records regulations: The Federal rules restrict any use of the information to criminally investigate or prosecute any alcohol or drug abuse patient.[facility]woodsIn the event this information is protected by the Federal Confidentiality of Alcohol and Drug Abuse Patient Records regulations: The Federal rules restrict any use of the information to criminally investigate or prosecute any alcohol or drug abuse patient.[facility]woodsIn the event this information is protected by the Federal Confidentiality of Alcohol and Drug Abuse Patient Records regulations: The Federal rules restrict any use of the information to criminally investigate or prosecute any alcohol or drug abuse patient.[facility]woodsIn the event this information is protected by the Federal Confidentiality of Alcohol and Drug Abuse Patient Records regulations: The Federal rules restrict any use of the information to criminally investigate or prosecute any alcohol or drug abuse patient.[facility]woodsIn the event this information is protected by the Federal Confidentiality of Alcohol and Drug Abuse Patient Records regulations: The Federal rules restrict any use of the information to criminally investigate or prosecute any alcohol or drug abuse patient.[facility]woodsIn the event this information is protected by the Federal Confidentiality of Alcohol and Drug Abuse Patient Records regulations: The Federal rules restrict any use of the information to criminally investigate or prosecute any alcohol or drug abuse patient.[facility]woodsIn the event this information is protected by the Federal Confidentiality of Alcohol and Drug Abuse Patient Records regulations: The Federal rules restrict any use of the information to criminally investigate or prosecute any alcohol or drug abuse patient.[facility]woodsIn the event this information is protected by the Federal Confidentiality of Alcohol and Drug Abuse Patient Records regulations: The Federal rules restrict any use of the information to criminally investigate or prosecute any alcohol or drug abuse patient.[facility]woodsIn the event this information is protected by the Federal Confidentiality of Alcohol and Drug Abuse Patient Records regulations: The Federal rules restrict any use of the information to criminally investigate or prosecute any alcohol or drug abuse patient.[facility]woodsIn the event this information is protected by the Federal Confidentiality of Alcohol and Drug Abuse Patient Records regulations: The Federal rules restrict any use of the information to criminally investigate or prosecute any alcohol or drug abuse patient.[facility]woodsIn the event this information is protected by the Federal Confidentiality of Alcohol and Drug Abuse Patient Records regulations: The Federal rules restrict any use of the information to criminally investigate or prosecute any alcohol or drug abuse patient.[facility] Care Teams (unrecognized sec tion and content) 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 Relationship Specialty Start Date End Date Baudilio Sultana MD [address] [place] [address] PCP - General Family Practice 04/01/18 Jackson Lee Consulting Rheumatology 10/12/17 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 Relationship Specialty Start Date End Date Baudilio Sultana MD [address] [place], [place] [id number] PCP - General Family Practice 04/01/18 Jackson Lee Consulting Rheumatology 10/12/17 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 Relationship Specialty Start Date End Date Baudilio Sultana MD [address] [facility] [place] [address] PCP - General Family Practice 04/01/18 Jackson Lee Consulting Rheumatology 10/12/17 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 Relationship Specialty Start Date End Date Baudilio Sultana MD [address] [facility] [place] [address] PCP - General Family Practice 04/01/18 Jackson Lee Consulting Rheumatology 10/12/17 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 Relationship Specialty Start Date End Date Baudilio Sultana MD [address] [facility] [place] [address] PCP - General Family Practice 04/01/18 Jackson Lee Consulting Rheumatology 10/12/17 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 Relationship Specialty Start Date End Date Baudilio Sultana MD [address] [facility] [address] PCP - General Family Practice 04/01/18 Jackson Lee Consulting Rheumatology 10/12/17 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 Relationship Specialty Start Date End Date Baudilio Sultana MD [address] [facility] [place] [address] PCP - General Family Practice 04/01/18 Jackson Lee Consulting Rheumatology 10/12/17 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 Relationship Specialty Start Date End Date Baudilio Sultana MD [address] [facility] [address] PCP - General Family Practice 04/01/18 Jackson Lee Consulting Rheumatology 10/12/17 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 Relationship Specialty Start Date End Date Baudilio Sultana MD [address] [facility] [address] PCP - General Family Practice 04/01/18 Jackson Lee Consulting Rheumatology 10/12/17 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 Relationship Specialty Start Date End Date Baudilio Sultana MD [address] [facility] [address] PCP - General Family Practice 04/01/18 Jackson Lee Consulting Rheumatology 10/12/17 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 Relationship Specialty Start Date End Date Baudilio Sultana MD [address] [facility] [place] [address] PCP - General Family Practice 04/01/18 Jackson Lee Consulting Rheumatology 10/12/17 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 Relationship Specialty Start Date End Date Baudilio Sultana MD [address] [facility] [place] [address] PCP - General Family Practice 04/01/18 Jackson Lee Consulting Rheumatology 10/12/17 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 Relationship Specialty Start Date End Date Baudilio Sultana MD [address] [facility] [address] PCP - General Family Practice 04/01/18 Jackson Lee Consulting Rheumatology 10/12/17 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 Relationship Specialty Start Date End Date Baudilio Sultana MD [address] [facility] [address] PCP - General Family Practice 04/01/18 Jackson Lee Consulting Rheumatology 10/12/17 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 Relationship Specialty Start Date End Date Baudilio Sultana MD [address] [facility] [address] PCP - General Family Practice 04/01/18 Jackson Lee Consulting Rheumatology 10/12/17 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 Relationship Specialty Start Date End Date Baudilio Sultana MD [address] [facility] [address] PCP - General Family Practice 04/01/18 Jackson Lee Consulting Rheumatology 10/12/17 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 Relationship Specialty Start Date End Date Baudilio Sultana MD [address] [place], [place] [id number] PCP - General Family Medicine 04/01/18 04/24/22 Jackson Lee Consulting Rheumatology 10/12/17 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 Relationship Specialty Start Date End Date Baudilio Sultana MD [address] [place], [place] [id number] PCP - General Family Medicine 04/01/18 04/24/22 Jackson Lee Consulting Rheumatology 10/12/17 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 Relationship Specialty Start Date End Date Jackson Lee MD Consulting Rheumatology 10/12/17 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 Relationship Specialty Start Date End Date Jackson Lee MD Consulting Rheumatology 10/12/17 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 Relationship Specialty Start Date End Date Gio Harvey [address], [facility] [place] [address] PCP - General Certified Nurse Practitioner 01/13/24 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 Relationship Specialty Start Date End Date Gio Harvey [address], [place] [address] PCP - General Certified Nurse Practitioner 01/13/24 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 Relationship Specialty Start Date End Date Baudilio Sultana MD [address] [place], [place] [id number] PCP - General Family Medicine 04/01/18 04/24/22 Jackson Lee MD Consulting Rheumatology 10/12/17 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 Relationship Specialty Start Date End Date Gio Harvey [address], [facility] [place] [address] PCP - General Certified Nurse Practitioner 01/13/24 07/09/24 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 Relationship Specialty Start Date End Date Gio Harvey [address], [facility] [place] [address] PCP - General Certified Nurse Practitioner 01/13/24 07/09/24 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 Relationship Specialty Start Date End Date Raf Casey MD [address] [phone] PCP - General Internal Medicine 08/27/23 Jackson Lee MD Consulting Rheumatology 10/12/17 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 Relationship Specialty Start Date End Date Raf Casey MD [address] [phone] PCP - General Internal Medicine 08/27/23 Jackson Lee MD Consulting Rheumatology 10/12/17 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 Relationship Specialty Start Date End Date Raf Casey MD [address] [phone] PCP - General Internal Medicine 08/27/23 Jackson Lee MD Consulting Rheumatology 10/12/17 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 Relationship Specialty Start Date End Date Raf Casey MD [address] [facility] [address] [place] [address] PCP - General Internal Medicine 08/27/23 Jackson Lee MD Consulting Rheumatology 10/12/17 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 Relationship Specialty Start Date End Date Raf Casey MD [address] [facility] [address] [place] [address] PCP - General Internal Medicine 08/27/23 Jackson Lee MD Consulting Rheumatology 10/12/17 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 Relationship Specialty Start Date End Date Raf Casey MD [address] [facility] [address] [place] [address] PCP - General Internal Medicine 08/27/23 Jackson Lee MD Consulting Rheumatology 10/12/17 Reason for Visit (unrecogniz ed section and content) Reason Comments Anticoagulation Reason Onset Date Comments Anticoagulation 09/25/2021 Reason Comments Physical moving into assisted living Specialty Diagnoses / Procedures Referred By Contsilvia t Referred To Contact Family Practice / FAMILY MEDICINE Diagnoses moving into assisted living need ov for this Procedures 4C EST WELL Self Baudilio Sultana MD [address] [place] [address] Referral ID Status Reason Start Date Expiration Date V isits Requested Visits Authorized [id number] Closed Financial Clearance Required - OON Payor [...] Orders Reason Comments Fall Patient lies in [facility] and fell, +thinners, A&Ox4 [...] per day), 10 doses, First dose on Thu03/10/22 at 2100, Last dose on 03/15/22 at [...] 1647, Until Discontinued 0749 (Given - Provider: Mable Trejo RN) 0747 (Given - Provider: Viktoriya Danielson RN) 0851 (Given - Provider: Viktoriya Danielson RN) cefepime (MAXIPIME) 2000 mg IVPB minibag (CANCELED) 2,000 mg, IntraVENous, at 100 mL/hr, Administer over 30 Minutes, Every 8 hours, First dose on 03/08/22 at 1800, For 5 days 0508 (New Bag - Provider: Alexandra Yao, RN)0559 (Stopped - Provider: Alexandra Yao RN) [...] 747 (Given - Provider: Mable Trejo RN) 0748 (Given - Provider: Viktoriya Danielson RN) 0851 (Given - Provider: Viktoriya Danielson RN) hydroxychloroquine (PLAQUENIL) tablet 200 mg 200 mg, Oral, 2 TIMES DAILY, First dose on 03/09/22 at 1400, Until Discontinued, Do not crush or divide film-coated tablets 49 (Given - Provider: Mable Trejo RN)2103 (Given - Provider: Lucy Nicholas LPN) 0751 (Given - Provider: Viktoriya Danielson RN)2038 (Given - Provider: Lucy Nicholas LPN) 0851 (Given - Provider: Viktoriya Danielson RN)2149 (Given - Provider: Alexandra Yao RN) insulin lispro (HUMALOG) injection vial 0-4 Units [...] LPN - Reason: Order parameters not met) 2100 (Due) insulin lispro (HUMALOG) injection vial 0-8 [...] for 30 minutes before and after dose. 610 (Given - Provider: Alexandra Yao RN) 518 (Given - Provider: Luyc Nicholas LPN) 528 (Given - Provider: Lucy [...] to transportation) 2149 (Given - Provider: Alexandra Yao, RN) metoprolol succinate (TOPROL XL) extended release tablet 100 mg 100 mg, Oral, Nightly, First dose (after last modification) on 03/09/22 at 2100, Until Discontinued, Do not crush or chew. 2103 (Given - Provider: Lucy Nicholas LPN) 2038 (Given - Provider: Lucy Nicholas LPN) 2149 (Given - Provider: Alexandra Yao, RN) miconazole (MICOTIN) 2 % powder Topical, 2 TIMES DAILY, First dose on 03/08/22 at 2100, Apply to skin folds. Substituted for Nystatin (MICOSTATIN) powder. 0748 (Given - Provider: Mable Trejo RN - Comment: as ordered)2107 (Given - Provider: Lucy Nicholas LPN) 749 (Given - Provider: Viktoriya Danielson RN)2039 (Not Given - Provider: Lucy Nicholas LPN - Reason: Patient/family refused) 847 (Given - Provider: Viktoriya Danielson RN)2153 (Given [...] already given) 075 (Given - Provider: Viktoriya Danielson RN)2032 (Not Given - Provider: Lucy Nicholas LPN [...] or Central Line = 20 mL/lumen 075 (Given - Provider: Mable Trejo RN)2103 (Given - Provider: Lucy Nicholas LPN) 075 (Given - Provider: Viktoriya Danielson RN)2032 (Not Given - Provider: Lucy Nicholas LPN [...] home. D/c got changed due to transportation) 9703 (Given - Provider: Alexandra Yao, RN) warfarin (COUMADIN) tablet 1 mg (COMPLETED) [...] Scheduled Medication Order 07/18/2023 07/19/2023 07/20/2023 HYDROcodone-acetaminophen ([place]) 5-325 MG per tablet 1 tablet (COMPLETED) 1 tablet, Oral, Once, On Thu07/19/23 at 2030, For 1 dose, Maximum dose of acetaminophen is 4000 mg from all sources in 24 hours. 2030 (Given - Provider: Pia Caraballo RN) HYDROcodone-acetaminophen ([place]) 5-325 MG per tablet 1 tablet (COMPLETED) 1 tablet, Oral, Once, On Thu07/20/23 at 0105, For 1 dose, Maximum dose of acetaminophen is 4000 mg from all sources in 24 hours. 0154 (Given - Provid er: Gifty Cornell RN) HYDROcodone-acetaminophen ([place]) 5-325 MG per tablet 1 tablet (COMPLETED) 1 tablet, Oral, Once, On Thu07/20/23 at 0650, For 1 dose, Maximum dose of acetaminophen is 4000 mg from all sources in 24 hours. 0651 (Given - Provid er: Gifty Cornell RN) [...] dose 0024 (Given - Provid er: Chhaya Osborn RN) glucagon (human recombinant) injection 1 mg (COMPLETED) [...] BE BASED ON THE PRIMARY CLINICAL RECORDS. [facility]. provides no warranty or guarantee of the accuracy or completeness of information in this document.
[2024-12-19 08:24] LABS: INR Fingerstick 2.3; Prothrombin Time Fingerstick 24.7 SEC (11.7-14.9)
== END ==
LOC: OLS.WCC 05:00
PROVIDERS: PCP Family Medicine; Visit Provider Family Medicine
DX: Z79.899 Other long term (current) drug therapy (principal); D68.62 Lupus anticoagulant syndrome
CPT/HCPCS: 36416; 85610

== ENCOUNTER → 2025-01-02 | Outpatient (REF) | payer MEDICARE, MEDICAID, SELFPAY ==
[2025-01-02 08:09] LABS: INR Fingerstick 2.4
== END ==
LOC: OLS.WCC 04:00
PROVIDERS: PCP Family Medicine; Referring Provider Family Medicine; Visit Provider Family Medicine
DX: Z79.899 Other long term (current) drug therapy (principal); Z79.01 Long term (current) use of anticoagulants
CPT/HCPCS: 36416; 85610

== ENCOUNTER → 2025-01-03 | Outpatient (REF) | payer MEDICARE, OTHER, SELFPAY ==
[2025-01-03 08:01] LABS: Mucous, Urine 0 SEEN /hpf (<or=2+); Squamous Epithelial Cells - UA 0 SEEN /hpf (5-10)
[2025-01-03 08:27] LABS: Color, Urine Yellow (Yellow); Glucose, Dipstick Normal (Normal); Ketone-Dipstick Negative (Negative); Leukocyte Esterase-Dipstick 500 /ul (Negative); Nitrite-Dipstick Negative (Negative); Occult Blood-Urine 250 /ul (Negative); Protein-Dipstick 100 mg/dl (Negative); Specific Gravity, Urine 1.015 (1.002-1.030); Urine Bilirubin Dipstick Negative (Negative)
[2025-01-03 08:40] LABS: Red Blood Cells-Urine 10-25 SEEN /hpf (0-5)
== END ==
LOC: OLS.WCC 04:45
PROVIDERS: PCP Family Medicine; Visit Provider Family Medicine
DX: N39.0 Urinary tract infection, site not specified (principal)
CPT/HCPCS: 81001; 87077; 87086; 87088; 87186

== ENCOUNTER → 2025-01-09 04:00 | Outpatient (REF) | payer MEDICARE, OTHER, SELFPAY ==
--- OUTSIDE RECORDS SUMMARY | 2025-01-09 04:21 | XMS RPT_ITS | CCD ---
Author Organization [facility] Secured Mail ion [facility] Care Team Providers Care Paint Stockman Name Role Phone DAVID ERWIN E Unavailable Unavailable DAVID ERWIN E Unavailable Unavailable DAVID ERWIN Unavailable Unavailable DAVID ERWIN Unavailable Unavailable Phan Coleman Unavailable Unavailable DAVID [...] MD Primary Care Provider Jackson Lee Unavailable Unavailmaryellen ble Unavailable Primary Care Provider UnavailRAF Rosenthal Referring Unavailable LINDEN FUENTES Referring Unavailable OSMAN MCCORMACK Attending Unavailable RAF HUTSON Referring Unavailable Jackson Lee MD Unavailable [phone] Unavailable Primary Care Provider UnavailGio Ureña Primary Care Provider Baudilio Sultana MD Primary Care Provider Gio Harvey Primary Care Provider GIO HARVEY Primary Care Unavailable ISAAC CHICAS Attending Unavailable GLORIA BANGURA Attending Unavailable GIO HARVEY Primary Care Unavailable Александр JHA Attending Unavailable ANNA, CUBA R Attending Unavailable WESTON, GIO Primary Care Unavailable ISAAC CHICAS Attending Unavailable GLORIA BANGURA Referring Unavailable ANNA, CUBA R Referring Unavailable WESTON, GIO Primary Care Unavailable Александр JHA Referring Unavailable ANNA, CUBA R Referring Unavailable ANNA, CUBA R Referring Unavailable WESTON, GIO Primary Care Unavailable ISAAC CHICAS Attending Unavailable Raf Casey MD Primary Care Provider KYMBERLY, RAF Rascon Primary Care Unavailable LI, RAF Abiodun Primary Care Unavailable SAGE LOERA Attending Unavailabl e MABLE BARKER Admitting Unavailable TESTRAKE, STEVEN Referring Unavailable LI, RAF Abiodun Primary Care Unavailable TESTRAKE, STEVEN Referring Unavailable KYMBERLY, RAF Abiodun Primary Care Unavailable TESTSTEVEN MOSLEY Attending Unavailable KYMBERLY, RAF L Primary Care Unavailable MENDEL SHARMA Attending Unavailable SAGE LOERA Referring Unavailabl e KYMBERLY, RAF Abiodun Primary Care Unavailable LULA GENE Maryellen Attending [...] Unavailable LI, RAF L Primary Care Unavailable Orrin, Baudilio Primary Care Unavailable Min Rojas Attending Unavailable Marroquin Min ALBRECHT K Attending Unavailable [facility] Primary Care Unavailable Marroquin Min ALBRECHT K Attending Unavailable Orrin, Baudilio Primary Care Unavailable Marroquin Min ALBRECHT K Attending Unavailable Min Rojas K Referring Unavailable Orrin, Baudilio Primary Care Unavailable Allergies Allergy Classification Reported Allergen(s) Allergy Type Date of Onset Reaction(s) Facility (20 sources) cephalexin; Translations: [CEPHALEXIN] Drug Allergy 5 Itching [facility] Repository (20 sources) ciprofloxacin; Translations: [CIPROFLOXACIN] Drug Allergy 1 Rash [facility] Repository (20 sources) erythromycin; Translations: [ERYTHROMYCIN] Drug Allergy 5 Itching [facility] Repository (20 sources) naproxen; Translations: [NAPROXEN] Drug Allergy 5 Intolerance [facility] Repository (20 sources) PARoxetine; Translations: [PAROXETINE HCL] Drug Allergy 5 Mental Status Change [facility] Repository (20 sources) Penicillins; Translations: [PENICILLINS] Propensity to adverse reactions to drug (disorder) 1 Hives, Unknown, Other [facility] Repository (20 sources) PROMETHAZINE-PHE NYLEPHRINE; Translations: [PROMETHAZINE-PH ENYLEPHRINE] Propensity to adverse reactions to drug (disorder) 5 Mental Status Change, Other [facility] Repository (4 sources) OTHER; Translations: [OTHER] Propensity to adverse reactions (disorder) 2 AOF [facility] Repository (20 sources) HMG-CoA reductase inhibitor; Translations: [BOSHZDC-MEN-QWC REDUCTASE INHIBITORS] Drug Intolerance [address] [facility] Work Phone: (20 sources) paper tape [Other] Propensity to adverse reactions [address] [facility] Work Phone: (2 sources) Cephalexin; Translations: [cephalexin monohydrate] Drug Allergy 1 Unknown [facility] Repository (1 source) Erythromycin Drug Allergy 1 Unknown [facility] Work Phone: (2 sources) Promethazine; Translations: [promethazine HCl] Drug Allergy 1 Unknown [facility] Repository (2 sources) Hwhwzcd-Kaz-Mvu Reductase Inhibitor; Translations: [Nwevmsx-Vke-Ljc Reductase Inhibitor] Propensity to adverse reactions 1 Myalgias [facility] Repository (1 source) PAPER TAPE Propensity to adverse reactions 1 Rash [facility] Work Phone: (19 sources) HMG-CoA reductase inhibitor Drug Intolerance [address] [facility] Work Phone: (3 sources) Adhesive Tape Propensity to adverse reactions to drug 2 Unknown [facility] (5 sources) Cheese; Translations: [CHEESE] Propensity to adverse reactions to drug 2 Diarrhea, Nausea And Vomiting, GI Upset [facility] (1 source) Hmg-Coa Reductase Inhibitors (Statins) Propensity to adverse reactions to drug [address] [facility] Work Phone: (20 sources) Promethazine; Translations: [PROMETHAZINE] Drug Allergy 9 Unknown, Intolerance [facility] Work Phone: (20 sources) PARoxetine; Translations: [PAROXETINE] Drug Allergy 9 Unknown, Intolerance [facility] (20 sources) 5-Alpha Reductase Inhibitors Propensity to adverse reactions 3 [facility] (12 sources) Adhesive Tape-Silicones; Translations: [ADHESIVE TAPE-SILICONES] Drug Allergy 3 Unknown, Rash [facility] (11 sources) Adhesive Tape Propensity to adverse reactions 4 [facility] (7 sources) Wound Dressing Adhesive Drug Allergy 3 Unknown [facility] (10 sources) Adhesive Tape; Translations: [ADHESIVE TAPE (ROSINS)] Propensity to adverse reactions to substance 1 [facility] Work Phone: (2 sources) Adhesive agent; Translations: [ADHESIVE] Propensity to adverse reactions to drug (disorder) [address] [facility] Other [place] Repository (1 source) Adhesive Tape Drug allergy (disorder) 2 [facility] Repository (1 source) Erythromycin Drug Allergy 2 [facility] Repository Medications Current Medications Medication Drug Class(es) Dates Sig (Normalized) Sig (Original) acetaminophen 500 mg oral tablet (16 sources) Start: 09-28-2024 take 2 tablets by [...] sources in 24 hours. Start: 09-06-2022 End: 03-18-2023 acetaminophen (Tylenol) tabl et 650 mg Start: [...] 24 hours. take 2 tablets by mo [facility] twice daily as needed for pain acetaminophen (TYLENOL) 500 MG tablet Take 1,000 mg by mouth 2 times daily as needed for Pain 0 Active albuterol 0.83 mg/ml inhalation solution (9 sources) beta2-Adrenergic Agonist take 3 mL by [...] 1 tablet by rajan th once daily. benzonatate 100 mg oral capsule (10 sources) Non-narcotic Antitussive Start: 09-28-2024 take 1 [...] Phosphate Binder, Calcium Start: 06-12-2019 Calcium Carb-D3-Mag Seg16-Raww Active 1 EACH PO DAILY June 12, [...] oral tablet (20 sources) Vitamin D Start: take 2000 [IU] by mouth once daily Cholecalciferol (Vitamin D3) Active 2000 UNIT PO DAILY May 26, 2019 2:11pm take 1 capsule by mouth once anna ly cholecalciferol (Vitamin D-3) 50 MCG (1999 UT) capsule Take 2,000 Units by mouth daily. Active Comment on above: Take 1 capsule by mo uth once daily. clindamycin 300 mg oral capsule (4 sources) Lincosamide Antibacterial Start: 12-15-19 End: 12-25-19 clindamycin (Cleocin) 300 MG capsule Take 1 capsule (300 mg) by mouth in the morning and 1 capsule (300 mg) at noon and 1 capsule (300 mg) in the evening and 1 capsule (300 mg) before bedtime. Do all this for 10 days. 40 capsule 12/15/2023 12/25/2023 Active collagenase 0.25 unt/mg topical ointment (1 source) Collagen-specific Enzyme Start: 03-09-20 collagenase ointment COMPOUNDED PRESCRIPTION (20 sources) Start: [...] FOR ANXIETY FLUoxetine 20 mg oral capsule (7 sources) Serotonin Reuptake Inhibitor Start: 09-29-2024 take [...] on above: Take 1 tablet by rajan three times daily for 180 days. 150 [...] Active Start: 03-09-2022 take 1 tablet by [facility] twice daily 200 mg, Oral, 2 TIMES [...] day. 09/28/2024 Active take [address] [facility] every eight hours as needed hydrOXYzine [...] daily. miconazole nitrate 0.02 mg/mg topical powder (8 sources) Azole Antifungal Start: 09-28-2024 miconazole 2 [...] 3 times daily. Active nystatin (Mycost atin) 930479 UNIT/GM powder Apply topically 2 times daily. Active nystatin (MYCOSTATIN) POWD p owder (1 source) nystatin (MYCOST ATIN) POWD powder Apply topically 2 times daily as needed 0 Active Nystatin, Bulk, 10 billion u nit powd (9 sources) Nystatin, Bulk, 10 billion unit powd [...] January 07, 2014 9:25am polyethylene glycol 3350 60650 mg powder for oral solution (2 sources) [...] 07/24/2021 Active take 1 capsule by mo [facility] every twenty-four hours ramipril (Altace) 5 MG capsule Take 1 capsule by mouth Every 24 hours. Active Comment on above: Take 1 capsule by mo [facility] once daily. 5 ml sodium chloride [...] Active Start: 09-17-2022 take 1 tablet by rajan once daily in the evening traZODone (Desyrel) [...] Discontinued Start: 05-26-[address] [facility] once daily Warfarin (Coumadin) 2.5 mg tablet Active 5 MG PO DAILY May 26, 2019 2:11pm Start: 06-06-2014 End: 05-26-2019 Warfarin Discontinued 2.5 MG PO SUTUWEFRSA June 06, 2014 1:41pm May 26, 2019 2:11pm Comment on above: Takes 2 per week 5 mg daily or as dir ected 7.5 mg Wed/Thu, 5 mg all other days or as directed 2.5 mg once weekly. 5 mg all other days. takes 5 per week 7.5 mg Mon/Fri, 5 mg all other days or as directed Completed/Discontinued Medications Medication Drug Class(es) Dates Sig (Normalized) Sig (Original) acetaminophen 325 mg / HYDROcodone bitartrate 5 mg oral tablet (20 sources) Opioid Agonist Start: 07-19-2023 End: 07-20-2023 HYDROcodone-acetam inophen ([place]) 5-325 MG per tablet 1 tablet Start: [...] Discontinued Start: 05-04-2019 take 2 spray(s) by out once daily fluticasone (FLONASE) 50 mcg/actuation [...] Onset: 3 04-18-2005 Chronic Chronic kidney disease (10 sources) Chronic kidney disease; Translations: [Chronic kidney disease, unspecified] Onset: 3 05-04-2023 Chronic Chronic ulcer of skin (13 sources) Non-pressure chronic ulcer of left heel and midfoot with fat layer exposed; Translations: [Pressure ulcer of other site, stage 3] Onset: 2 Chronic Coagulation and hemorrhagic disorders (12 sources) Thrombocytopenia, unspecified; Translations: [Lupus anticoagulant disorder] Onset: 2 Chronic Coronary atherosclerosis and other heart disease (20 sources) Atherosclerotic heart disease of [place] coronary artery without angina pectoris; Translations: [Coronary [...] 4 Resolved: 2 07-08-2018 Chronic E Codes: Place of occurrence (1 source) Unspecified place in unspecified non-institutional (private) residence as the place of occurrence of the external cause; Translations: [Fall at home, initial encounter] Onset: 5 Episodic Essential hypertension (14 sources) Essential (primary) hypertension; Translations: [Essential hypertension] Onset: 8 Resolved: 0 Chronic Fluid and electrolyte disorders (2 sources) Hypo-osmolality [...] Translations: [Depression, unspecified] Onset: 2 Nutritional deficiencies (10 sources) Vitamin D deficiency; Translations: [Vitamin D deficiency, unspecified] Onset: 3 05-04-2023 Chronic Osteoarthritis (20 sources) Osteoarthritis of bilateral acromioclavicular joints; Translations: [Primary osteoarthritis, right shoulder] Onset: 4 Resolved: 4 05-04-2023 Chronic Other aftercare (3 sources) oil heaterman (current) use of anticoagulants; Translations: [oil heaterman (current) use of anticoagulants] Onset: 2 Episodic Other aftercare (2 sources) snf (current) use of oral hypoglycemic drugs; Translations: [oil heaterman (current) use of oral hypoglycemic drugs] Onset: 2 Episodic Other aftercare (2 sources) snf (current) use of aspirin; Translations: [snf (current) use of aspirin] Onset: 2 Episodic Other aftercare (2 sources) snf (current) use of opiate analgesic; Translations: [snf (current) use of opiate analgesic] Onset: 2 Episodic Other aftercare (1 source) Other buttermaker continuous churn (current) drug therapy; Translations: [Other buttermaker continuous churn (current) drug therapy] Onset: 5 Episodic Other bone disease and musculoskeletal deformities [...] unspecified] Onset: 2 Chronic Other endocrine disorders (10 sources) Primary hyperparathyroidism; Translations: [Primary hyperparathyroidism] Onset: [...] cough] 07-10-2024 Episodic Other nervous system disorders (13 sources) Neuropathy; Translations: [Polyneuropathy, unspecified] Onset: 3 [...] Chronic Other nutritional; endocrine; and metabolic disorders (7 sources) Obese class II; Translations: [Obesity, Class II, BMI 35-39.9] Onset: 5 09-21-2024 Chronic Other nutritional; endocrine; and metabolic disorders (7 sources) Hypomagnesemia; Translations: [Hypomagnesemia] Onset: 5 09-25-2024 [...] 7 04-04-2015 Chronic Peripheral and visceral atherosclerosis (10 sources) Peripheral vascular disease; Translations: [Peripheral vascular disease, unspecified] Onset: 3 05-04-2023 Chronic Pulmonary heart disease (10 sources) Chronic thromboembolic pulmonary hypertension; Translations: [Chronic thromboembolic pulmonary hypertension] Onset: 3 05-04-2023 Chronic Residual codes; unclassified (20 sources) Edema; Translations: [Edema, unspecified] 04-18-2005 Episodic Residual codes; unclassified (1 source) Swelling - edema - symptom; Translations: [Edema, unspecified] 04-18-2005 Episodic Residual codes; unclassified (1 source) Other specified health status; Translations: [Decreased activities of daily living (ADL)] Onset: 5 Episodic Systemic lupus erythematosus and connective tissue [...] Episodic Coronary atherosclerosis and other heart disease (13 sources) Stented coronary artery; Translations: [Presence of coronary angioplasty implant and graft] Onset: 04-22-2008 Episodic Diabetes mellitus without complication (8 sources) Diabetes mellitus; Translations: [Type 2 diabetes mellitus without complications] Onset: 05-12-2011 Resolved: 11-08-2014 11-08-2014 Chronic E Codes: Fall (20 sources) Fall on same level, unspecified, initial encounter; Translations: [Fall] Onset: 03-08-2022 Resolved: 09-25-2024 Episodic Headache; including migraine (12 sources) Headache; Translations: [Headache] Onset: 03-29-2007 Resolved: 09-26-2021 03-29-2007 Episodic Immunizations and screening for infectious disease (12 sources) Anti-nuclear factor positive; Translations: [Other and unspecified nonspecific immunological findings] Onset: 02-28-2010 Resolved: 09-26-2021 02-28-2010 Episodic Infective arthritis and osteomyelitis (except that caused by tuberculosis or sexually transmitted disease) (8 sources) Osteomyelitis; Translations: [Osteomyelitis, unspecified] Onset: 01-10-2011 Resolved: 09-29-2016 09-29-2016 Chronic Miscellaneous mental health disorders (8 sources) Psychalgia; Translations: [Pain disorder with related psychological factors] Onset: 09-02-2010 Resolved: 11-08-2014 11-08-2014 Chronic Mycoses (20 sources) Candidiasis; Translations: [Other sites of candidiasis] Onset: 05-04-2023 05-04-2023 Episodic Nonspecific chest pain (12 sources) Chest pain; Translations: [Other chest pain] Resolved: 09-26-2021 04-18-2005 Episodic Nutritional deficiencies (20 sources) Cobalamin deficiency; Translations: [Deficiency of other specified B group vitamins] Onset: 08-18-2019 08-18-2019 Episodic Open wounds of extremities (20 sources) Open wound of hand; Translations: [Laceration without foreign body of unspecified hand, initial encounter] Onset: 09-06-2022 Episodic Other connective tissue disease (12 sources) Muscle weakness of limb; Translations: [Other symptoms and signs involving the musculoskeletal system] Onset: 11-25-2016 Resolved: 09-26-2021 07-08-2018 Episodic Other connective tissue disease (14 sources) Recurrent falls ; Translations: [Repeated falls] Onset: 11-25-2016 Resolved: 09-26-2021 11-25-2016 Episodic Other connective tissue disease (4 sources) Repeated falls; Translations: [Repeated falls] Onset: 03-08-2022 Episodic Other connective tissue disease (8 sources) Thigh pain; Translations: [Pain in unspecified thigh] Onset: 03-07-2011 Resolved: 07-08-2018 07-08-2018 Episodic Other ear and sense organ disorders (10 sources) Wax in ear canal; Translations: [Impacted cerumen, unspecified ear] Onset: 05-04-2023 05-04-2023 Episodic Other injuries and conditions due to external causes (10 sources) Closed injury of head; Translations: [Unspecified injury of head, initial encounter] Onset: 05-04-2023 05-04-2023 Episodic Other injuries and conditions due to external causes (10 sources) Blister; Translations: [Other injury of unspecified body region, initial encounter] Onset: 05-04-2023 05-04-2023 Episodic Other lower respiratory disease (8 sources) Cough; Translations: [Cough] Onset: 09-09-2013 Resolved: 11-08-2014 11-08-2014 Episodic Other non-traumatic joint disorders (20 sources) Pain in right shoulder; Translations: [Pain in joint, shoulder region] Onset: 09-06-2022 05-04-2023 Episodic Other non-traumatic joint disorders (10 sources) Pain in unspecified knee; Translations: [Pain in joint, lower leg] Onset: 05-04-2023 05-04-2023 Episodic Other non-traumatic joint disorders (2 sources) Pain in right hip; Translations: [Pain in right hip] Onset: 07-19-2023 Episodic Other nutritional; endocrine; and metabolic disorders (10 sources) H/O: hypothyroidism; Translations: [Personal history of other endocrine, nutritional and metabolic disease] Onset: 05-04-2023 05-04-2023 Episodic Other upper respiratory infections (16 sources) Laryngitis; Translations: [Acute laryngitis] Onset: 09-09-2013 Resolved: 11-08-2014 11-08-2014 Episodic Pneumonia (except that caused by tuberculosis or sexually transmitted disease) (10 sources) Pneumonia; Translations: [Pneumonia, unspecified organism] Onset: 05-04-2023 05-04-2023 Episodic Pulmonary heart disease (20 sources) Pulmonary embolism; Translations: [Other pulmonary embolism without acute cor pulmonale] Onset: 08-11-2011 Resolved: 03-07-2020 06-17-2021 Episodic Residual codes; unclassified (8 sources) Family history of cancer of colon; Translations: [Family history of malignant neoplasm of digestive organs] Onset: 08-20-2012 Resolved: 11-08-2014 11-08-2014 Episodic Skin and subcutaneous tissue infections (20 sources) Cellulitis of left lower limb; Translations: [Cellulitis of left lower limb] Onset: 03-08-2022 Episodic Spondylosis; intervertebral disc disorders; other back problems (20 sources) Brachial neuritis; Translations: [Radiculopathy, cervical region] Onset: 01-29-2009 07-08-2018 Episodic Sprains and strains (13 sources) Strain of calf muscle; Translations: [Strain of other muscle(s) and tendon(s) at lower leg level, unspecified leg, initial encounter] Onset: 05-04-2023 05-04-2023 Episodic Superficial injury; contusion (20 sources) Hematoma [...] of left ankle 10-27-2024 Urinary tract infections (11 sources) Urinary tract infection, site not specified; Translations: [Urinary tract infectious disease] Onset: 03-08-2022 Episodic Results Test Name Value Interpretation Reference Range Facility Urine Cultureon 01-06-2025 [facility] Klebsiella pneumonia e sp pneum [place] Count 50,000-80,000 Escherichia coli Escherichia coli Klebsiella pneumoniae sp pneum: REACTION Ampicillin Islt NORMA >=32 R Ampicillin+Sulbac Islt NORMA 4 Cefepime Islt NORMA <=0.12 S cefTRIAXone Islt NORMA <=0.25 S Ciprofloxacin Islt NORMA <=0.06 S B-Lactamase Extended Susc Islt NEG Gentamicin Islt NORMA <=1 S levoFLOXacin Islt NORMA <=0.12 S Meropenem Islt NORMA <=0.25 S Nitrofurantoin Islt NORMA 64 I Pip+Tazo Islt NORMA <=4 S TMP SMX Islt NORMA <=20 S Escherichia coli: REACTION Ampicillin Islt NORMA <=2 S Ampicillin+Sulbac Islt NORMA <=2 Cefepime Islt NORMA <=0.12 S cefTRIAXone Islt NORMA <=0.25 S Ciprofloxacin Islt NORMA <=0.06 S B-Lactamase Extended Susc Islt NEG Gentamicin Islt NORMA <=1 S levoFLOXacin Islt NORMA <=0.12 S Meropenem Islt NORMA <=0.25 S Nitrofurantoin Islt NORMA 32 S Pip+Tazo Islt NORMA <=4 S TMP SMX Islt NORMA <=20 S Normal [facility] Comment on above: Performed By: #### M 100.2200, L400.0001 #### [facility] [address] [facility] [place], [place], [address] Urinalysis, Completeon 01-03 RBC 10-25 SEEN Normal 0-5 [facility] Comment on above: Order Comment: CLAU TER SPECIMEN Performed By: #### M 100.2200, [id number] #### [facility] [address] [place], [address] WBC >100 SEEN Normal 0-5 [facility] Comment on above: Order Comment: CLAU TER SPECIMEN Performed By: #### M 100.2200, [id number] #### [facility] [address] [place], [address] BACTERIA 0 SEEN Normal None Seen [facility] Comment on above: Order Comment: CLAU TER SPECIMEN Performed By: #### M 100.2200, [id number] #### [facility] [address] [place], [address] EPI,SQUAMOUS 0 SEEN Normal 5-10 [facility] Comment on above: Order Comment: CLAU TER SPECIMEN Performed By: #### M 100.2200, [id number] #### [facility] [address] [place], [address] Mucus Ql (Urine sed) 0 SEEN Normal [facility] Comment on above: Order Comment: CLAU TER SPECIMEN Performed By: #### M 100.2200, [id number] #### [facility] [address] [place], [address] Protime w/INR Fingerstickon 01-02-2025 INR Coag (PPP) [Relative time] 2.4 {INR} Normal [facility] Comment on above: Result Comment: Crit ical Value > 4.0 Performed By: #### L [id number] #### [facility] [address] [place], [address] Protime [place] 25.4 SEC High 11.7-14.9 [facility] Comment on above: Performed By: #### L [id number] #### [facility] [address] [place], [address] Protime w/INR Fingerstickon 12-19-2024 INR Coag (PPP) [Relative time] 2.3 {INR} Normal [facility] Comment on above: Result Comment: Crit ical Value > 4.0 Performed By: #### L [id number] #### [facility] [address] [place], [address] Protime [place] 24.7 SEC High 11.7-14.9 [facility] Comment on above: Performed By: #### L [id number] #### [facility] [address] [place], [address] CNOVon 12-06-2024 CNOV Office Visit (PSYLWM ) RANDOLPH HUNTER ([id number]) 1950 F Date Time Provider Department 12/06/24 11:00 AM GILMER COTTON PSYLWM During your visit today, we recorded the following information about you: Gilmer Cotton, PhD 12/06/2024 12:04 PM Signed [facility] Department Progress Note Randolph Hunter 12/06/2024 [id number] PROVIDER: Gilmer Cotton, PhD CPT Code: Time: [...] illness Pt moved now a week [facility] [place] so far and she believes it [...] Assisted Living room while she is in [facility] rooms MEDICATIONS: Per medical record: Current [...] Issues: No change from previous appointment DIAGNOSIS: [place] I: Depres (more content not included)... Normal [facility] Basic Metabolic Profile (BMP )on 12-05-2024 BUN/CRE 17.2 RATIO Normal 10-20 [facility] Comment on above: Order Comment: 130.2 Performed By: #### L 300.3900, L500.2500, L100.0500 #### [facility] [address] [place], [address] Calcium [Mass/Vol] 8.5 mg/dL Normal 7.6-11.0 [facility] Comment on above: Order Comment: 130.2 Performed By: #### L 300.3900, L500.2500, L100.0500 #### [facility] [address] [place], [address] Chloride [Moles/Vol] 107 mmol/L Normal 98-108 [facility] Comment on above: Order Comment: 130.2 Performed By: #### L 300.3900, L500.2500, L100.0500 #### [facility] [address] [place], [address] CO2 [Moles/Vol] 26.6 mmol/L Normal 21.0-32.0 [facility] Comment on above: Order Comment: 130.2 Performed By: #### L 300.3900, L500.2500, L100.0500 #### [facility] [address] [place], [address] Creatinine [Mass/Vol] 0.93 mg/dL Normal 0.70-1.20 [facility] Comment on above: Order Comment: 130.2 Performed By: #### L 300.3900, L500.2500, L100.0500 #### [facility] [address] [place], [address] GAP 6 Normal 5-15 [facility] Comment on above: Order Comment: 130.2 Performed By: #### L 300.3900, L500.2500, L100.0500 #### [facility] [address] [place], [address] GFR/1.73 sq M.predicted among non-blacks MDRD (S/P/Bld) [Vol rate/Area] 65 mL/min/{1.73_m2} Normal >60 [facility] Comment on above: Order Comment: 130.2 Result Comment: mL/m in/1.73m2 CKD-EPI Creatinine Equation (2020) Performed By: #### L 300.3900, L500.2500, L100.0500 #### [facility] [address] [place], [address] Glucose [Mass/Vol] 97 mg/dL Normal 70-99 [facility] Comment on above: Order Comment: 130.2 Performed By: #### L 300.3900, L500.2500, L100.0500 #### [facility] [address] [place], [address] Potassium [Moles/Vol] 4.9 mmol/L Normal 3.3-5.1 [facility] Comment on above: Order Comment: 130.2 Result Comment: Hemo lysis present, Results??could be affected. ?? Performed By: #### L 300.3900, L500.2500, L100.0500 #### [facility] [address] [place], [address] Sodium [Moles/Vol] 140 mmol/L Normal 133-145 [facility] Comment on above: Order Comment: 130.2 Performed By: #### L 300.3900, L500.2500, L100.0500 #### [facility] [address] [place], [address] Urea nitrogen [Mass/Vol] 16 mg/dL Normal 4-19 [facility] Comment on above: Order Comment: 130.2 Performed By: #### L 300.3900, L500.2500, L100.0500 #### [facility] [address] [place], [address] CBC-Complete Blood Cnt No Di ffon 12-05-2024 Erythrocyte distribution width (RBC) [Ratio] 13.6 % Normal 11.6-14.6 [facility] Comment on above: Order Comment: 130.2 Performed By: #### L 300.3900, L500.2500, L100.0500 #### [facility] [address] [place], [address] Hematocrit (Bld) [Volume fraction] 31.9 % Low 37-47 [facility] Comment on above: Order Comment: 130.2 Performed By: #### L 300.3900, L500.2500, L100.0500 #### [facility] [address] [place], [address] Hemoglobin (Bld) [Mass/Vol] 10.4 g/dL Low 12.0-15.0 [facility] Comment on above: Order Comment: 130.2 Performed By: #### L 300.3900, L500.2500, L100.0500 #### [facility] [address] [place], [address] MCH (RBC) [Entitic mass] 30.2 pg Normal 27.0-32.0 [facility] Comment on above: Order Comment: 130.2 Performed By: #### L 300.3900, L500.2500, L100.0500 #### [facility] [address] [place], [address] MCHC (RBC) [Mass/Vol] 32.6 g/dL Normal 32-36 [facility] Comment on above: Order Comment: 130.2 Performed By: #### L 300.3900, L500.2500, L100.0500 #### [facility] [address] [place], [address] MCV (RBC) [Entitic vol] 92.7 fL Normal 81-99 [facility] Comment on above: Order Comment: 130.2 Performed By: #### L 300.3900, L500.2500, L100.0500 #### [facility] [address] [place], [address] Platelet mean volume (Bld) [Entitic vol] 10.1 fL Normal 6.2-12.0 [facility] Comment on above: Order Comment: 130.2 Performed By: #### L 300.3900, L500.2500, L100.0500 #### [facility] [address] [place], [address] Platelets (Bld) [#/Vol] 147 10*3/uL Low 150-450 [facility] Comment on above: Order Comment: 130.2 Performed By: #### L 300.3900, L500.2500, L100.0500 #### [facility] [address] [place], [address] RBC (Bld) [#/Vol] 3.44 10*6/uL Low 4.2-5.[address] [facility] Comment on above: Order Comment: 130.2 Performed By: #### L 300.3900, L500.2500, L100.0500 #### [facility] [address] [place], [address] RDW SD 45.9 fl High 35.1-43.9 [facility] Comment on above: Order Comment: 130.2 Performed By: #### L 300.3900, L500.2500, L100.0500 #### [facility] [address] [place], [address] WBC (Bld) [#/Vol] 4.1 10*3/uL Low 4.4-11.0 [facility] Comment on above: Order Comment: 130.2 Performed By: #### L 300.3900, L500.2500, L100.0500 #### [facility] [address] [place], [address] Prothrombin Time w/INRon INR Coag (PPP) [Relative time] 1.7 {INR} Normal [facility] Comment on above: Order Comment: 130.2 Performed By: #### L 300.3900, L500.2500, L100.0500 #### [facility] [address] [place], [address] PT Coag (PPP) [Time] 20.2 s High 11.7-14.9 [facility] Comment on above: Order Comment: 130.2 Performed By: #### L 300.3900, L500.2500, L100.0500 #### [facility] [address] [place], [address] MRI ANKLE WO IVCON LTon 05-2 0-2025 MRI ANKLE WO IVCBILLIE LT * * *Final Report* * * DATE OF EXAM: Nov 08 2024 11:35AM RVM 0163 - MRI ANKLE WO DARIN LT / PROCEDURE REASON: multiple diagnoses * [...] number above, please feel free to contact [facility] eRadiology at [phone]. [id number] [facility] CNOVon 10-27-2024 CNOV Office Visit (PODIWS ) RANDOLPH HUNTER ([id number]) 1950 F Date Time Provider Department 10/27/24 11:15 AM STEVEN PELAEZ During your visit today, we recorded the following information about you: Del Isbell, NAWAF 10/27/2024 11:29 AM Signed Patient presents with: [...] and injured herself. She is currently at [facility]. Has a [...] center. Steven Pelaez 10/27/2024 11:29 AM Signed Terry Khalil is a 74-year-old female with [...] foot (HCC) Pulmonary embolism (HCC) Pulmonary embolism ([facility]) 2011 SLE (systemic lupus erythematosus) ([facility]) Type II or unspecified type diabetes [...] sugar diagnost (more content not included)... Normal [facility] XR ANKLE 3V AP/LAT/OBL LTon 10-27-2024 XR [...] No radiographic evidence of acute osseous injury Membership Sales Representative: [facility] Transcribe Date/Time: Nov 01 2024 4:44P Dictated by : JAYDEN JOVEL MD This examination was interpreted and the report reviewed and electronically signed by: JAYDEN JOVEL MD on Nov 01 2024 4:45PM EST [id number] Normal [facility] XR TIBIA FIBULA 2V AP/LAT LT on [...] No radiographic evidence of acute osseous injury Membership Sales Representative: [facility] Transcribe Date/Time: Nov 01 2024 4:44P Dictated by : JAYDEN JOVEL MD This examination was interpreted and the report reviewed and electronically signed by: JAYDEN JOVEL MD on Nov 01 2024 4:45PM EST [id number] Normal [facility] PT panel Coag (PPP)on 2024 INR Coag (PPP) [Relative time] 2.3 {INR} High 0.9-1.3 [facility] Comment on above: Order Comment: Speci men Type: BLOOD SPECIMEN Ordering Facility: [facility] Address: [address] [place] [address] Result Comment: Kaycee min K Antagonist (VKA) Therapeutic Range: INR 2 to 3 (Target INR of 2.5) Note: For patients treated with VKA drugs, such as warfarin, the [employer] 2012 Guideline recommends [...] 2.5 to 3.5 (target INR of 3). Guyatt GH, et al. Chest 2012, 141:7S-47S Roshni CASTILLO et al. [facility] 2017, 70: 252-289 Performed By: #### 3 4528-0 #### [facility] CLIA [id number] [address] [place], [place] [address] [facility] [place] PT Coag (PPP) [Time] 23.1 s High 9.7-13.0 [facility] Comment on above: Order Comment: Suzanne garcia Type: BLOOD SPECIMEN Ordering Facility: [facility] Address: [address] [place] [address] Performed By: #### 3 4528-0 #### [facility] CLIA [id number] [address] [place], [place] [address] [facility] PT panel Coag (PPP)on 2024 INR Coag (PPP) [Relative time] 3.8 {INR} High 0.9-1.3 [facility] Comment on above: Order Comment: Suzanne garcia Type: BLOOD SPECIMEN Ordering Facility: [facility] Address: [address] [place] [address] Result Comment: Kaycee min K Antagonist (VKA) Therapeutic Range: INR 2 to 3 (Target INR of 2.5) Note: For patients treated with VKA drugs, such as warfarin, the [employer] 2012 Guideline recommends [...] to 3.5 (target INR of 3). Keegan SOUZA et al. Chest 2012, 141:7S-47S Roshni CASTILLO et al. [facility] 2017, 70: 252-289 Performed By: #### 3 4528-0 #### [facility] CLIA [id number] [address] [place], [place] [id number] [place] PT Coag (PPP) [Time] 37.1 s High 9.7-13.0 [facility] Comment on above: Order Comment: Suzanne garcia Type: BLOOD SPECIMEN Ordering Facility: [facility] Address: [address] [place] [address], [place] [address] Performed By: #### 3 4528-0 #### [facility] CLIA [id number] [address] [id number] [facility] CNOVon 10-19-2024 CNOV Office Visit (ORMDNA ) RANDOLPH HUNTER ([id number]) 1950 F Date Time Provider Department 10/19/24 [...] Status Change Penicillins Hives Dioxicillin Promethazine Intolerance Gnhnoeu-Fhw-Stz Red* Myalgia PAST MEDICAL HISTORY PAST MEDICAL HISTORY Diagnosis Date CAD (coronary artery disease) Carotid a (more content not included)... Normal [facility] Large Joint Arthro/Inj: L kn ee jointon [...] these instructions. Informed Consent Consent Obtained: Verbal [place] Protocol A moment to CARE was completed. [...] the bedside nurse for hospitalized patients) applicable. [facility] CNDSon 09-28-2024 [facility] HNO ID: [id number] Author: SAGE LOERA MD Service: Hospital Medicine [...] inability to stand pivot necessitating going to [facility] facility for rehab SUMMARY OF WHAT HAPPENED WHILE I WAS IN THE HOSPITAL: Orthopedics agrees no surgical intervention now resume exercises when you get to the [facility] facility no ligamentous injury evident on CT [...] No pending results Discharge Disposition Discharge Disposition: Penitentiary Facility - Less than 30 Days Activity [...] to bear weight to transfer will need [facility] home placement Anticoagulation: Prior to admission: Warfarin [...] (cerebral palsy) (HCC) (POA: Yes) --Presented to [facility] for evaluation of left knee pain [...] lupus erythematosus) (HCC) (POA: Yes) --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 Normal [facility] Magnesium SerPl-mCncon 09-28 Magnesium [Mass/Vol] 1.7 mg/dL Normal 1.7-2.3 [facility] Comment on above: Order Comment: Speci men Type: BLOOD SPECIMENOrdering Facility: [facility] Address: [address] [place] [address] Performed By: #### 1 9123-9 ####[facility] [id number] [place] [id number] [facility] NURSING PROGon 09-28-2024 NURSING PROG HNO ID: [id number] Author: CHARLEY BARRIENTOS RN Service: Nursing Author Type: Registered Nurse Type: Nursing Progress Note Filed: 09/28/2024 16:32 Note Text: Other: 1625: Patient discharged in stable condition. Left floor via cart w/[employer]. Discharge paperwork and all personal belongings w/patient. Normal [facility] PT panel Coag (PPP)on 2024 INR Coag (PPP) [Relative time] 2.1 {INR} High 0.9-1.3 [facility] Comment on above: Order Comment: Suzanne garcia Type: BLOOD SPECIMENOrdering Facility: [facility] Address: [address] [id number] Result Comment: Kaycee min K Antagonist (VKA) Therapeutic Range: INR 2 to 3 (Target INR of 2.5) Note: For patients treated with VKA drugs, such as warfarin, the [employer] 2012 Guideline recommends [...] Chest 2012, 141:7S-47S Roshni RA, et al. [facility] 2017, 70: 252-289 Performed By: #### 3 4528-0 ####[facility] [id number] [place] [id number] [place] PT Coag (PPP) [Time] 22.0 s High 9.7-13.0 [facility] Comment on above: Order Comment: Suzanne garcia Type: BLOOD SPECIMENOrdering Facility: [facility] Address: [address] [place] [address] Performed By: #### 3 4528-0 ####[facility] [id number] [place] [id number] [place] PT panel Coag (PPP)on 2024 INR Coag (PPP) [Relative time] 2.8 {INR} High 0.9-1.3 [facility] Comment on above: Order Comment: Suzanne garcia Type: BLOOD SPECIMENOrdering Facility: [facility] Address: [address] [id number] Result Comment: Kaycee min K Antagonist (VKA) Therapeutic Range: INR 2 to 3 (Target INR of 2.5) Note: For patients treated with VKA drugs, such as warfarin, the [employer] 2012 Guideline recommends [...] Chest 2012, 141:7S-47S Roshni RA, et al. [facility] 2017, 70: 252-289 Performed By: #### 3 4528-0 ####[facility] [id number] [place] [address] [place] PT Coag (PPP) [Time] 27.9 s High 9.7-13.0 [facility] Comment on above: Order Comment: Speci men Type: BLOOD SPECIMENOrdering Facility: [facility] Address: [address] [place] [address] [place] [address] Performed By: #### 3 4528-0 ####[facility] [id number] [place] [id number] [facility] NUTRITIONon 09-26-2024 NUTRITION HNO ID: [id number] Author: SALVADOR ISLAS RD Service: Nutrition Therapy [...] Diet Orders (From admission, onward) Start Ordered 09/19/241314 DIET SUPPLEMENTS NOW Question Answer Comment Supplement 1 ENSURE MAX CHOCOLATE Supplement 1 Frequency PM SNACK 09/19/24 1312 09/19/24 0215 Diet Regular START NOW 09/19/24 021 Anthropometrics: Height: 157.5 cm (5' 2") Weight: 94.9 kg (209 lb 3.5 oz) Body mass index is 38.27 kg/m?. Lines, Drains, and Airways Drain Duration External Collection Device 09/18/24 2332 [facility] 7 days MNT Billing: $ Reassessment: 1-15 minutes SIGNATURE: Salvador Islas RD PATIENT NAME: Randolph Hunter DATE: September 26, 2024 TIME: 3:09 PM Normal [facility] PT panel Coag (PPP)on 2024 INR Coag (PPP) [Relative time] 4.1 {INR} High 0.9-1.3 [facility] Comment on above: Order Comment: Speci men Type: BLOOD SPECIMENOrdering Facility: [facility] Address: [address] [place] [address], [place] [address] Result Comment: Kaycee min K Antagonist (VKA) Therapeutic Range: INR 2 to 3 (Target INR of 2.5) Note: For patients treated with VKA drugs, such as warfarin, the [employer] 2012 Guideline recommends [...] Chest 2012, 141:7S-47S Roshni CASTILLO et al. [facility] 2017, 70: 252-289 Performed By: #### 3 4528-0 ####[facility]ORYCLIA [id number] [place] [address] [facility] PT Coag (PPP) [Time] 39.9 s High 9.7-13.0 [facility] Comment on above: Order Comment: Speci men Type: BLOOD SPECIMENOrdering Facility: [facility] Address: [facility] [place] [address] Performed By: #### 3 4528-0 ####[facility]ORYCLIA [id number] [place] [id number] [facility] THERAPY NTon 09-26-2024 THERAPY NT HNO ID: [id number] Author: ESTELLE CAGE PT Service: Physical Therapy Author Type: Physical Therapist Type: Therapy (PT/OT/Speech/Resp) Filed: 09/26/2024 12:08 Note Text: Summary: PT treatment Physical Therapy Treatment Summary SERVICE DATE: 09/26/2024 SERVICE TIME: 1130 to 1155 ROOM: [id number]- PT 6 Clicks Score: 14 DISCHARGE RECOMMENDATIONS [...] is struggling to ambulate. Patient admitted to [facility] with Dx: Decreased activities of daily living (ADL), Fall at home, initial encounter Relevant Past Medical History: DM, edema, depression,asthma, obesity, irsutism, venous insufficiency, oseteomyeliitis of foot, SLE, cerebral palsy, pulmonary embolism, hypothyroidism, insomnai, CAD, migraines, HTN, hysterectomy HOME LIVING Patient Lives With: Facility Care, Spouse, Other: See Comment Comments: [place] with spouse Assistance Available: 24-Hour Comments: [facility] staff for toileting and shower Entry To Home: No Stairs Number Of Stairs To Bed/Bath: 0 Tub/Shower Type: Accessible WIS with shower chair + grab bars, has assistance/supervision for transfers Laundry: [facility] staff completes Equipment Owned: Lift Chair, [...] DIAGNOSIS Reduced mobility-other TREATMENT INTERVENTIONS Therapeutic Activity (71392) Timed Code Treatment (minutes): 25 Skilled Treatment Time (minutes): 25 Therapeutic Activity (76673) Treatment Minutes: 25 $ Therapeutic Activity (36097) Billed Units: 2 units TRAINING AND EDUCATION [...] Assistance, Additional Inform (more content not included)... Normal [facility] THERAPY NT HNO ID: [id number] Author: BARBARA CHU OTR/Abiodun Service: Occupational Therapy Author Type: Occupational Therapist Type: Therapy (PT/OT/Speech/Resp) Filed: 09/26/2024 11:51 Note Text: Summary: OT precert note Occupational Therapy Treatment Summary SERVICE DATE: 09/26/2024 SERVICE TIME: 1100 to 1136 ROOM: [id number] OT 6 Clicks Score: 13 DISCHARGE RECOMMENDATIONS [...] is struggling to ambulate. Patient admitted to [facility] with Dx: Decreased activities of daily living (ADL), Fall at home, initial encounter Relevant Past Medical History: DM, edema, depression,asthma, obesity, irsutism, venous insufficiency, oseteomyeliitis of foot, SLE, cerebral palsy, pulmonary embolism, hypothyroidism, insomnai, CAD, migraines, HTN, hysterectomy HOME LIVING Patient Lives With: Facility Care, Spouse, Other: See Comment Comments: [facility] with spouse Assistance Available: 24-Hour Comments: [facility] staff for toileting and shower Entry To Home: No Stairs Number Of Stairs To Bed/Bath: 0 Tub/Shower Type: Accessible WIS with shower chair + grab bars, has assistance/supervision for transfers Laundry: [facility] staff completes Equipment Owned: Lift Chair, [...] symptoms and signs-other TREATMENT INTERVENTIONS Therapeutic Exercise (29861), Self Correction Management (76264) Timed Code Treatment (minutes): 27 Skilled Treatment [...] Contact Guard Assista (more content not included)... Normal [facility] THERAPY NT HNO ID: [id number] Author: ESTELLE CAGE PT Service: Physical Therapy Author Type: Physical Therapist Type: Therapy (PT/OT/Speech/Resp) Filed: 09/26/2024 10:54 Note Text: PHYSICAL THERAPY MISSED VISIT SERVICE DATE: 09/26/2024 SERVICE TIME: 1045 ROOM: [place] [address] Patient not seen due to Patient Not Available.patient was cleaned up and had another bowel movement and has called for assist getting cleaned up. Will re approach when available/appropriate. Secure chat to team and spoke with cm. SIGNATURE: Estelle Cage PT PATIENT NAME: Randolph Hunter DATE: September 26, 2024 TIME: 10:53 AM [facility] THERAPY NT HNO ID: [id number] Author: ESTELLE CAGE PT Service: Physical Therapy Author Type: Physical Therapist Type: Therapy (PT/OT/Speech/Resp) Filed: 09/26/2024 09:42 Note Text: Summary: PT missed visit PHYSICAL THERAPY MISSED VISIT SERVICE DATE: 09/26/2024 SERVICE TIME: 929 ROOM: [place] [address] Patient not seen due to Patient Not Available. Patient was incontinent of bowel and PCNA in room to get patient cleaned up. Received request from for precert. Will re approach as patient is available. SIGNATURE: Estelle Cage PT PATIENT NAME: Randolph Hunter DATE: September 26, 2024 TIME: 9:41 AM [facility] THERAPY NT HNO ID: [id number] Author: TANIA PERDUE OT/L Service: Occupational Therapy Author Type: Occupational Therapist Type: Therapy (PT/OT/Speech/Resp) Filed: 09/26/2024 09:21 Note Text: Summary: OT Missed Visit OCCUPATIONAL THERAPY MISSED VISIT SERVICE DATE: 09/26/2024 SERVICE TIME: 0908 ROOM: [place] [address] Patient not seen due to Patient Not Available. Initiated OT session however pt became incontinent of bowel during progression of supine>sit. PCNA and RN notified, deferred further OT at this time. CM notified as this patient has precert needs. Will re-attempt as schedule allows. SIGNATURE: Tania Perdue OT/L PATIENT NAME: Randolph Hunter DATE: September 26, 2024 TIME: 9:19 AM Normal [facility] CBC panel Auto (Bld)on 09-25 Erythrocyte distribution width (RBC) [Ratio] 13.5 % Normal 11.5-15.0 [facility] Comment on above: Order Comment: Suzanne garcia Type: BLOOD SPECIMENOrdering Facility: [facility] Address: [address] [place] [address] Performed By: #### 5 8410-2 ####[facility]ORYCLIA [id number] [place] [address] [place] Hematocrit (Bld) [Volume fraction] 38.8 % Normal 36.0-46.0 [facility] Comment on above: Order Comment: Suzanne garcia Type: BLOOD SPECIMENOrdering Facility: [facility] Address: [address] [place] [address] Performed By: #### 5 8410-2 ####[facility]ORATORYCLIA [id number] [place] [address] [place] Hemoglobin (Bld) [Mass/Vol] 13.1 g/dL Normal 11.5-15.5 [facility] Comment on above: Order Comment: Szuanne garcia Type: BLOOD SPECIMENOrdering Facility: [facility] Address: [address] [place] [address] Performed By: #### 5 8410-2 ####[facility]ATORYCLIA [id number] [address] MCH (RBC) [Entitic mass] 30.7 pg Normal 26.0-34.0 [facility] Comment on above: Order Comment: Speci men Type: BLOOD SPECIMENOrdering Facility: [facility] Address: [address] [place] [address] Performed By: #### 5 8410-2 ####[facility]ORYCLIA [id number] [address] MCHC (RBC) [Mass/Vol] 33.8 g/dL Normal 30.5-36.0 [facility] Comment on above: Order Comment: Speci men Type: BLOOD SPECIMENOrdering Facility: [facility] Address: [address] [place] [address] Performed By: #### 5 8410-2 ####[facility]ORYCLIA [id number] [address] MCV (RBC) [Entitic vol] 90.9 fL Normal 80.0-100.0 [facility] Comment on above: Order Comment: Speci men Type: BLOOD SPECIMENOrdering Facility: [facility] Address: [address] [place] [address] Performed By: #### 5 8410-2 ####[facility]ATORYCLIA [id number] [address] Nucleated RBC (Bld) [#/Vol] 10*3/uL Normal <0.01 [facility] Comment on above: Order Comment: Speci men Type: BLOOD SPECIMENOrdering Facility: [facility] Address: [address] [place] [address] Performed By: #### 5 8410-2 ####[facility]ORATORYCLIA [id number] [address] Platelet mean volume (Bld) [Entitic vol] 10.2 fL Normal 9.0-12.7 [facility] Comment on above: Order Comment: Speci men Type: BLOOD SPECIMENOrdering Facility: [facility] Address: [address] [place] [address] Performed By: #### 5 8410-2 ####[facility]ORATORYCLIA [id number] [address] Platelets (Bld) [#/Vol] 200 10*3/uL Normal 150-400 [facility] Comment on above: Order Comment: Speci men Type: BLOOD SPECIMENOrdering Facility: [facility] Address: [address] [place] [address] Performed By: #### 5 8410-2 ####[facility]ORATORYCLIA [id number] [address] [place] RBC (Bld) [#/Vol] 4.27 10*6/uL Normal 3.90-5.20 [facility] Comment on above: Order Comment: Speci men Type: BLOOD SPECIMENOrdering Facility: [facility] Address: [address] [place] [address] Performed By: #### 5 8410-2 ####[facility]ORYCLIA [id number] [address] WBC (Bld) [#/Vol] 10.28 10*3/uL Normal 3.70-11.00 [facility] Comment on above: Order Comment: Speci men Type: BLOOD SPECIMENOrdering Facility: [facility] Address: [address] [place] [address] Performed By: #### 5 8410-2 ####[facility]ORATORYCLIA [id number] [address] Comprehensive metabolic 2000 panelon 09-25-2024 Albumin [Mass/Vol] 3.0 g/dL Low 3.9-4.9 [facility] Comment on above: Order Comment: Speci men Type: BLOOD SPECIMENOrdering Facility: [facility] Address: [address] [place] [address] Performed By: #### 1 9123-9, 91418-0 ####[facility] LABORATORYCLIA [id number] [address] [place] ALP [Catalytic activity/Vol] 41 U/L Normal 34-123 [facility] Comment on above: Order Comment: Speci men Type: BLOOD SPECIMENOrdering Facility: [facility] Address: [address] [place] [address] Performed By: #### 1 9, 59147-4 ####[facility]ERV[facility] LABORATORYCLIA [id number] [place] [address] [place] ALT [Catalytic activity/Vol] 11 U/L Normal 7-38 [facility] Comment on above: Order Comment: Speci men Type: BLOOD SPECIMENOrdering Facility: [facility] Address: [address] [place] [address] Performed By: #### 1 9, 75615-8 ####CERV[facility]ES LABORATORYCLIA [id number] [place] [address] [place] Anion gap [Moles/Vol] 11 mmol/L Normal 8-15 [facility] Comment on above: Order Comment: Speci men Type: BLOOD SPECIMENOrdering Facility: [facility] Address: [address] [place] [address] Performed By: #### 1 9123-02, 85217-1 ####CERV[facility] LABORATORYCLIA [id number] [place] [address] [place] AST [Catalytic activity/Vol] 21 U/L Normal 13-35 [facility] Comment on above: Order Comment: Speci men Type: BLOOD SPECIMENOrdering Facility: [facility] Address: [address] [place] [address] [place] [address] Performed By: #### 1 9, ####CERVANTES LABORATORYCLIA [id number] [place] [address] [place] Bilirubin [Mass/Vol] 0.3 mg/dL Normal 0.2-1.3 [facility] Comment on above: Order Comment: Speci men Type: BLOOD SPECIMENOrdering Facility: [facility] Address: [address] [place] [address] [place] [address] Performed By: #### 1 9, 15259-5 ####CERV[facility]ES LABORATORYCLIA [id number] [place] [address] [place] Calcium [Mass/Vol] 9.0 mg/dL Normal 8.5-10.2 [facility] Comment on above: Order Comment: Speci men Type: BLOOD SPECIMENOrdering Facility: [facility] Address: [address] [place] [address] Performed By: #### 1 23-9, 67789-5 ####CERV[facility]ES LABORATORYCLIA [id number] [place] [address] [place] Chloride [Moles/Vol] 99 mmol/L Normal 98-107 [facility] Comment on above: Order Comment: Speci men Type: BLOOD SPECIMENOrdering Facility: [facility] Address: [address] [place] [address] Performed By: #### 1 23-9, ####CERVANTES LABORATORYCLIA [id number] [place] [address] [place] CO2 [Moles/Vol] 24 mmol/L Normal 22-30 [facility] Comment on above: Order Comment: Speci men Type: BLOOD SPECIMENOrdering Facility: [facility] Address: [address] [place] [address] Performed By: #### 1 23-9, ####CERVANTES LABORATORYCLIA [id number] [place] [address] [place] Creatinine [Mass/Vol] 0.66 mg/dL Normal 0.58-0.96 [facility] Comment on above: Order Comment: Speci men Type: BLOOD SPECIMENOrdering Facility: [facility] Address: [address] [place] [address] Performed By: #### 1 23-9, ####CERVANTES LABORATORYCLIA [id number] [place] [address] [facility] [place] Creatinine and Glomerular filtration rate.predicted panel (S/P/Bld) 93 mL/min/1.73m??? Normal >=60 [facility] Comment on above: Order Comment: Speci men Type: BLOOD SPECIMENOrdering Facility: [facility] Address: [address] [place] [address] Result Comment: Winifred mated Glomerular Filtration Rate [...] actual GFR. Performed By: #### 1 9123-9, ####[facility] LABORATORYCLIA [id number] [place] [address] [place] Glucose [Mass/Vol] 202 mg/dL High 74-99 [facility] Comment on above: Order Comment: Speci men Type: BLOOD SPECIMENOrdering Facility: [facility] Address: [address] [place] [address] Result Comment: The [place] [employer] (ADA) provides guidance for cutoff [...] Standards of Medical Care in Diabetes 2016, [employer]. Diabetes Care. 2016.39(Suppl 1). Performed By: #### 1 9, ####[facility] LABORATORYCLIA [id number] [place] [id number] [place] Potassium [Moles/Vol] 4.4 mmol/L Normal 3.7-5.1 [facility] Comment on above: Order Comment: Naeemi men Type: BLOOD SPECIMENOrdering Facility: [facility] Address: [address] [place] [id number] Performed By: #### 1 239, ####[facility] LABORATORYCLIA [id number] [place] [address] [place] Protein [Mass/Vol] 6.0 g/dL Low 6.3-8.0 [facility] Comment on above: Order Comment: Speci men Type: BLOOD SPECIMENOrdering Facility: [facility] Address: [address] [place] [address] Performed By: #### 1 9123-9, 79774-6 ####CERVANTES LABORATORYCLIA [id number] [place] [address] [place] Sodium [Moles/Vol] 134 mmol/L Low 136-144 [facility] Comment on above: Order Comment: Speci men Type: BLOOD SPECIMENOrdering Facility: [facility] Address: [address] [place] [address] Performed By: #### 1 9123-9, 58865-4 ####CERVANTES LABORATORYCLIA [id number] [place] [address] [place] Urea nitrogen [Mass/Vol] 14 mg/dL Normal 7-21 [facility] Comment on above: Order Comment: Speci men Type: BLOOD SPECIMENOrdering Facility: [facility] Address: [address] [place] [address] Performed By: #### 1 9123-9, 19115-1 ####CERVANTES LABORATORYCLIA [id number] [place] [address] [place] Magnesium SerPl-mCncon 09-25 Magnesium [Mass/Vol] 1.5 mg/dL Low 1.7-2.3 [facility] Comment on above: Order Comment: Speci men Type: BLOOD SPECIMENOrdering Facility: [facility] Address: [address] [place] [address] Performed By: #### 1 9123-9, 70789-2 ####CERV[facility] LABORATORYCLIA [id number] [place] [address] [place] PT panel Coag (PPP)on 2024 INR Coag (PPP) [Relative time] 4.2 {INR} High 0.9-1.3 [facility] Comment on above: Order Comment: Speci men Type: BLOOD SPECIMENOrdering Facility: [facility] Address: [address] [place] [address] Result Comment: Kaycee min K Antagonist (VKA) Therapeutic Range: INR 2 to 3 (Target INR of 2.5) Note: For patients treated with VKA drugs, such as warfarin, the [employer] 2012 Guideline recommends [...] Chest 2012, 141:7S-47S Roshni RA, et al. [facility] 2017, 70: 252-289 Performed By: #### 3 4528-0 ####[facility] LABORATORYCLIA [id number] [address] [place] PT Coag (PPP) [Time] 41.3 s High 9.7-13.0 [facility] Comment on above: Order Comment: Speci men Type: BLOOD SPECIMENOrdering Facility: [facility] Address: [address] [place] [address] Performed By: #### 3 4528-0 ####[facility] LABORATORYCLIA [id number] [address] CONSULT PROGon 09-23-2024 CONSULT PROG HNO ID: [id number] Author: PIPE FREEMAN RPh Service: Pharmacy Author [...] Freeman RPh DATE/TIME: 09/23/2024 12:07 PM Normal [facility] PT panel Coag (PPP)on 2024 INR Coag (PPP) [Relative time] 2.9 {INR} High 0.9-1.3 [facility] Comment on above: Order Comment: Suzanne garcia Type: BLOOD SPECIMENOrdering Facility: [facility] Address: [address] [place] [address] Result Comment: Kaycee min K Antagonist (VKA) Therapeutic Range: INR 2 to 3 (Target INR of 2.5) Note: For patients treated with VKA drugs, such as warfarin, the [employer] 2012 Guideline recommends [...] Chest 2012, 141:7S-47S Roshni RA, et al. [facility] 2017, 70: 252-289 Performed By: #### 3 4528-0 ####CERV[facility]ES LABORATORYCLIA [id number] [address] [place] PT Coag (PPP) [Time] 29.1 s High 9.7-13.0 [facility] Comment on above: Order Comment: Suzanne garcia Type: BLOOD SPECIMENOrdering Facility: [facility] Address: [address] [place] [address] Performed By: #### 3 4528-0 ####CERV[facility] LABORATORYCLIA [id number] [address] PT panel Coag (PPP)on 2024 INR Coag (PPP) [Relative time] 2.8 {INR} High 0.9-1.3 [facility] Comment on above: Order Comment: Suzanne garcia Type: BLOOD SPECIMENOrdering Facility: [facility] Address: [address] [place] [id number] Result Comment: Kaycee min K Antagonist (VKA) Therapeutic Range: INR 2 to 3 (Target INR of 2.5) Note: For patients treated with VKA drugs, such as warfarin, the [employer] 2012 Guideline recommends [...] Chest 2012, 141:7S-47S Roshni RA, et al. [facility] 2017, 70: 252-289 Performed By: #### 3 4528-0 ####[facility] SYSTEMIA [id number] [address] [place] PT Coag (PPP) [Time] 27.8 s High 9.7-13.0 [facility] Comment on above: Order Comment: Speci men Type: BLOOD SPECIMENOrdering Facility: [facility] Address: [address] [place] [id number] Performed By: #### 3 4528-0 ####[facility] SYSTEMIA [id number] [place] [id number] [place] THERAPY NTon 09-22-2024 THERAPY NT HNO ID: [id number] Author: ESTELLE CAGE PT Service: Physical Therapy Author Type: Brokerage Office Manager Type: Therapy (PT/OT/Speech/Resp) Filed: 09/22/2024 17:13 Note Text: Attestation signed by Estelle Cage PT at 09/22/2024 5:13 PM I reviewed and agree with the documentation corresponding to this therapy visit. SIGNATURE: Estelle Cage PT DATE: September 22, 2024 TIME: 5:13 PM Summary: PT Treat Physical Therapy Treatment Summary SERVICE DATE: 09/22/2024 SERVICE TIME: 1408 to 1439 ROOM: [place] [address] PT 6 Clicks Score: 12 DISCHARGE RECOMMENDATIONS [...] is struggling to ambulate. Patient admitted to [facility] with Dx: Decreased activities of daily living (ADL), Fall at home, initial encounter Relevant Past Medical History: DM, edema, depression,asthma, obesity, irsutism, venous insufficiency, oseteomyeliitis of foot, SLE, cerebral palsy, pulmonary embolism, hypothyroidism, insomnai, CAD, migraines, HTN, hysterectomy HOME LIVING Patient Lives With: Facility Care, Spouse, Other: See Comment Comments: [facility] with spouse Assistance Available: 24-Hour Comments: [facility] staff for toileting and shower Entry To Home: No Stairs Number Of Stairs To Bed/Bath: 0 Tub/Shower Type: Accessible WIS with shower chair + grab bars, has assistance/supervision for transfers Laundry: [facility] staff completes Equipment Owned: Lift Chair, [...] DIAGNOSIS Reduced mobility-other TREATMENT INTERVENTIONS Therapeutic Activity (20057) Timed Code Treatment (minutes): 31 Skilled Treatment Time (minutes): 31 Therapeutic Activity (21398) Treatment Minutes: 31 $ Therapeutic Activity (86940) Billed Units: 2 units TRAINING AND EDUCATION [...] Sit: Modified In (more content not included)... [facility] THERAPY NT HNO ID: [id number] Author: CHRISTIANO MAYEN OT/Abiodun Service: ? Author Type: Occupational Therapist Type: Therapy (PT/OT/Speech/Resp) Filed: 09/22/2024 09:46 Note Text: Summary: OT Treatment Occupational Therapy Treatment Summary SERVICE DATE: 09/22/2024 SERVICE TIME: 857 to 939 ROOM: [id number]- OT 6 Clicks Score: 14 DISCHARGE RECOMMENDATIONS [...] is struggling to ambulate. Patient admitted to [facility] with Dx: Decreased activities of daily living (ADL), Fall at home, initial encounter Relevant Past Medical History: DM, edema, depression,asthma, obesity, irsutism, venous insufficiency, oseteomyeliitis of foot, SLE, cerebral palsy, pulmonary embolism, hypothyroidism, insomnai, CAD, migraines, HTN, hysterectomy HOME LIVING Patient Lives With: Facility Care, Spouse, Other: See Comment Comments: [facility] with spouse Assistance Available: 24-Hour Comments: [facility] staff for toileting and shower Entry To Home: No Stairs Number Of Stairs To Bed/Bath: 0 Tub/Shower Type: Accessible WIS with shower chair + grab bars, has assistance/supervision for transfers Laundry: [facility] staff completes Equipment Owned: Lift Chair, [...] (generalized), Unsteadiness on feet TREATMENT INTERVENTIONS Self Correction Management (96039), Therapeutic Activity (95308) Timed Code Treatment (minutes): 40 Skilled Treatment Time (minutes): 40 TRAINING AND EDUCATION PROVIDED Activity Adaptation/Compensatory Strategies, Adaptive Equipment/DME, Bed Mobility, Benefits of In-Hospital Mobility, Cognitive Skills, Command Following, Discharge Planning, Expected Functional Level, Functional Mobility Involving ADLs, Grooming Tasks, Fine Motor Coordination, Insight into Deficits, Lower Extremity Dressing, Feeding Tasks, Memory/Attention, Orientation, Positioning, Role of Occupational Therapy, Safety/Judgment, Sitting Balance to Improve [place] with ADLs/Self-Care, Standing Balance to Improve [place] with ADLs/Self-Care, Transfer - Sit to Stand, Upper Extremity Bathing THERAPEUTIC SKILLS USED Activity Dosing, Cues for Sequencing/Proper Technique for Activity, Cuing Tactile, Cuing Verbal, Cuing Visual, Facilitation of Joint Range of Motion, Movement Facilitation, Muscle Activation Facilitation, Physical Assist, Task Analysis Learning, Teach-Back fo (more content not included)... Normal [facility] CBC panel Auto (Bld)on 09-21 Erythrocyte distribution width (RBC) [Ratio] 13.2 % Normal 11.5-15.0 [facility] Comment on above: Order Comment: Speci men Type: BLOOD SPECIMENOrdering Facility: [facility] Address: [address] [place] [address] Performed By: #### 5 8410-2 ####[facility] LABORATORYCLIA [id number] [place] [address] [place] Hematocrit (Bld) [Volume fraction] 33.6 % Low 36.0-46.0 [facility] Comment on above: Order Comment: Speci men Type: BLOOD SPECIMENOrdering Facility: [facility] Address: [address] [place] [address] Performed By: #### 5 8410-2 ####CERV[facility] LABORATORYCLIA [id number] [place] [address] [place] Hemoglobin (Bld) [Mass/Vol] 11.4 g/dL Low 11.5-15.5 [facility] Comment on above: Order Comment: Speci men Type: BLOOD SPECIMENOrdering Facility: [facility] Address: [address] [place] [address] Performed By: #### 5 8410-2 ####CERV[facility] LABORATORYCLIA [id number] [address] MCH (RBC) [Entitic mass] 30.8 pg Normal 26.0-34.0 [facility] Comment on above: Order Comment: Speci men Type: BLOOD SPECIMENOrdering Facility: [facility] Address: [address] [place] [address] Performed By: #### 5 8410-2 ####CERV[facility] LABORATORYCLIA [id number] [address] MCHC (RBC) [Mass/Vol] 33.9 g/dL Normal 30.5-36.0 [facility] Comment on above: Order Comment: Speci men Type: BLOOD SPECIMENOrdering Facility: [facility] Address: [address] [place] [address] Performed By: #### 5 8410-2 ####C[facility] LABORATORYCLIA [id number] [address] MCV (RBC) [Entitic vol] 90.8 fL Normal 80.0-100.0 [facility] Comment on above: Order Comment: Speci men Type: BLOOD SPECIMENOrdering Facility: [facility] Address: [address] [place] [address] Performed By: #### 5 8410-2 ####[facility] LABORATORYCLIA [id number] [address] Nucleated RBC (Bld) [#/Vol] 10*3/uL Normal <0.01 [facility] Comment on above: Order Comment: Speci men Type: BLOOD SPECIMENOrdering Facility: [facility] Address: [address] [place] [address] Performed By: #### 5 8410-2 ####[facility] LABORATORYCLIA [id number] [address] Platelet mean volume (Bld) [Entitic vol] 10.2 fL Normal 9.0-12.7 [facility] Comment on above: Order Comment: Speci men Type: BLOOD SPECIMENOrdering Facility: [facility] Address: [address] [place] [address] Performed By: #### 5 8410-2 ####C[facility] LABORATORYCLIA [id number] [address] Platelets (Bld) [#/Vol] 177 10*3/uL Normal 150-400 [facility] Comment on above: Order Comment: Speci men Type: BLOOD SPECIMENOrdering Facility: [facility] Address: [address] [place] [address] Performed By: #### 5 8410-2 ####[facility]ERV[facility] LABORATORYCLIA [id number] [address] [place] RBC (Bld) [#/Vol] 3.70 10*6/uL Low 3.90-5.20 [facility] Comment on above: Order Comment: Speci men Type: BLOOD SPECIMENOrdering Facility: [facility] Address: [address] [place] [address] Performed By: #### 5 8410-2 ####[facility] LABORATORYCLIA [id number] [address] WBC (Bld) [#/Vol] 5.94 10*3/uL Normal 3.70-11.00 [facility] Comment on above: Order Comment: Speci men Type: BLOOD SPECIMENOrdering Facility: [facility] Address: [address] [place] [address] Performed By: #### 5 8410-2 ####CERV[facility] LABORATORYCLIA [id number] [address] Comprehensive metabolic 2000 panelon 09-21-2024 Albumin [Mass/Vol] 2.8 g/dL Low 3.9-4.9 [facility] Comment on above: Order Comment: Speci men Type: BLOOD SPECIMENOrdering Facility: [facility] Address: [address] [place] [address] Performed By: #### 1 9123-9, 89523-8 ####CERV[facility] LABORATORYCLIA [id number] [place] [address] [place] ALP [Catalytic activity/Vol] 33 U/L Low 34-123 [facility] Comment on above: Order Comment: Speci men Type: BLOOD SPECIMENOrdering Facility: [facility] Address: [address] [place] [address] Performed By: #### 1 23-9, 94353-9 ####CERV[facility] LABORATORYCLIA [id number] [place] [address] [place] ALT [Catalytic activity/Vol] 7 U/L Normal 7-38 [facility] Comment on above: Order Comment: Speci men Type: BLOOD SPECIMENOrdering Facility: [facility] Address: [address] [place] [address] Performed By: #### 1 23-9, 18823-6 ####CERVANTES LABORATORYCLIA [id number] [place] [address] [place] Anion gap [Moles/Vol] 8 mmol/L Normal 8-15 [facility] Comment on above: Order Comment: Speci men Type: BLOOD SPECIMENOrdering Facility: [facility] Address: [address] [place] [address] Performed By: #### 1 23-9, 69471-2 ####CERV[facility] LABORATORYCLIA [id number] [address] [place] AST [Catalytic activity/Vol] 18 U/L Normal 13-35 [facility] Comment on above: Order Comment: Speci men Type: BLOOD SPECIMENOrdering Facility: [facility] Address: [address] [place] [address] Performed By: #### 1 23-9, 91279-4 ####CERVANT[facility] LABORATORYCLIA [id number] [place] [address] [place] Bilirubin [Mass/Vol] 0.2 mg/dL Normal 0.2-1.3 [facility] Comment on above: Order Comment: Speci men Type: BLOOD SPECIMENOrdering Facility: [facility] Address: [address] [place] [address] Performed By: #### 1 239, 91434-2 ####CERV[facility] LABORATORYCLIA [id number] [place] [address] [place] Calcium [Mass/Vol] 8.4 mg/dL Low 8.5-10.2 [facility] Comment on above: Order Comment: Speci men Type: BLOOD SPECIMENOrdering Facility: [facility] Address: [address] [place] [address] Performed By: #### 1 23-9, ####CERVANT[facility] LABORATORYCLIA [id number] [place] [address] [place] Chloride [Moles/Vol] 103 mmol/L Normal 98-107 [facility] Comment on above: Order Comment: Speci men Type: BLOOD SPECIMENOrdering Facility: [facility] Address: [address] [place] [address] Performed By: #### 1 23-9, ####CERV[facility] LABORATORYCLIA [id number] [place] [address] [place] CO2 [Moles/Vol] 27 mmol/L Normal 22-30 [facility] Comment on above: Order Comment: Speci men Type: BLOOD SPECIMENOrdering Facility: [facility] Address: [address] [place] [address] Performed By: #### 1 239, ####CERV[facility] LABORATORYCLIA [id number] [place] [address] [place] Creatinine [Mass/Vol] 0.79 mg/dL Normal 0.58-0.96 [facility] Comment on above: Order Comment: Speci men Type: BLOOD SPECIMENOrdering Facility: [facility] Address: [address] [place] [address] Performed By: #### 1 23-9, 32393-0 ####CERV[facility] LABORATORYCLIA [id number] [address] Creatinine and Glomerular filtration rate.predicted panel (S/P/Bld) 79 mL/min/1.73m??? Normal >=60 [facility] Comment on above: Order Comment: Speci men Type: BLOOD SPECIMENOrdering Facility: [facility] Address: [address] [place] [address] Result Comment: Winifred mated Glomerular Filtration Rate [...] actual GFR. Performed By: #### 1 9123-9, 52017-4 ####[facility] LABORATORYCLIA [id number] [place] [address] [place] Glucose [Mass/Vol] 115 mg/dL High 74-99 [facility] Comment on above: Order Comment: Suzanne garcia Type: BLOOD SPECIMENOrdering Facility: [facility] Address: [address] [place] [address] Result Comment: The [place] [employer] (ADA) provides guidance for cutoff [...] Standards of Medical Care in Diabetes 2016, [place] [employer]. Diabetes Care. 2016.39(Suppl 1). Performed By: #### 1 9123-9, ####[facility] LABORATORYCLIA [id number] [place] [id number] [place] Potassium [Moles/Vol] 4.8 mmol/L Normal 3.7-5.1 [facility] Comment on above: Order Comment: Suzanne garcia Type: BLOOD SPECIMENOrdering Facility: [facility] Address: [address] [place] [address] Performed By: #### 1 9123-9, 49351-2 ####[facility] LABORATORYCLIA [id number] [place] [address] [place] Protein [Mass/Vol] 5.6 g/dL Low 6.3-8.0 [facility] Comment on above: Order Comment: Speci men Type: BLOOD SPECIMENOrdering Facility: [facility] Address: [address] [place] [address] Performed By: #### 1 9123-9, 78133-8 ####CERV[facility] LABORATORYCLIA [id number] [place] [address] [place] Sodium [Moles/Vol] 138 mmol/L Normal 136-144 [facility] Comment on above: Order Comment: Speci men Type: BLOOD SPECIMENOrdering Facility: [facility] Address: [address] [place] [address] Performed By: #### 1 9123-9, 51314-1 ####C[facility] LABORATORYCLIA [id number] [address] [place] Urea nitrogen [Mass/Vol] 16 mg/dL Normal 7-21 [facility] Comment on above: Order Comment: Speci men Type: BLOOD SPECIMENOrdering Facility: [facility] Address: [address] [place] [address] Performed By: #### 1 9123-9, 04018-7 ####[facility]ERV[facility] LABORATORYCLIA [id number] [address] [place] Magnesium SerPl-mCncon 09-21 Magnesium [Mass/Vol] 1.9 mg/dL Normal 1.7-2.3 [facility] Comment on above: Order Comment: Speci men Type: BLOOD SPECIMENOrdering Facility: [facility] Address: [address] [place] [address] Performed By: #### 1 9123-9, 79544-6 ####CERVANT[facility] LABORATORYCLIA [id number] [place] [address] [place] PT panel Coag (PPP)on 2024 INR Coag (PPP) [Relative time] 2.5 {INR} High 0.9-1.3 [facility] Comment on above: Order Comment: Speci men Type: BLOOD SPECIMENOrdering Facility: [facility] Address: [address] [place] [address] Result Comment: Kaycee min K Antagonist (VKA) Therapeutic Range: INR 2 to 3 (Target INR of 2.5) Note: For patients treated with VKA drugs, such as warfarin, the [employer] 2012 Guideline recommends [...] Chest 2012, 141:7S-47S Roshni CASTILLO, et al. [facility] 2017, 70: 252-289 Performed By: #### 3 4528-0 ####CERVANT[facility] LABORATORYCLIA [id number] [place] [address] [place] KIM PT Coag (PPP) [Time] 25.1 s High 9.7-13.0 [facility] Comment on above: Order Comment: Suzanne garcia Type: BLOOD SPECIMENOrdering Facility: [facility] Address: [address] [place] [address] Performed By: #### 3 4528-0 ####CERV[facility]ES LABORATORYCLIA [id number] [place] [id number] [place] CBC panel Auto (Bld)on 09-20 Erythrocyte distribution width (RBC) [Ratio] 13.2 % Normal 11.5-15.0 [facility] Comment on above: Order Comment: Suzanne garcia Type: BLOOD SPECIMENOrdering Facility: [facility] Address: [address] [place] [address] Performed By: #### 5 8410-2 ####CERVANTES LABORATORYCLIA [id number] [place] [address] [place] Hematocrit (Bld) [Volume fraction] 36.8 % Normal 36.0-46.0 [facility] Comment on above: Order Comment: Speci men Type: BLOOD SPECIMENOrdering Facility: [facility] Address: [address] [place] [address] Performed By: #### 5 8410-2 ####CERVANTES LABORATORYCLIA [id number] [address] Hemoglobin (Bld) [Mass/Vol] 12.4 g/dL Normal 11.5-15.5 [facility] Comment on above: Order Comment: Speci men Type: BLOOD SPECIMENOrdering Facility: [facility] Address: [address] [place] [address] Performed By: #### 5 8410-2 ####CERVANTES LABORATORYCLIA [id number] [address] MCH (RBC) [Entitic mass] 30.8 pg Normal 26.0-34.0 [facility] Comment on above: Order Comment: Speci men Type: BLOOD SPECIMENOrdering Facility: [facility] Address: [address] [place] [address] Performed By: #### 5 8410-2 ####CERVANTES LABORATORYCLIA [id number] [address] MCHC (RBC) [Mass/Vol] 33.7 g/dL Normal 30.5-36.0 [facility] Comment on above: Order Comment: Speci men Type: BLOOD SPECIMENOrdering Facility: [facility] Address: [address] [place] [address] Performed By: #### 5 8410-2 ####CERVANTES LABORATORYCLIA [id number] [address] MCV (RBC) [Entitic vol] 91.5 fL Normal 80.0-100.0 [facility] Comment on above: Order Comment: Speci men Type: BLOOD SPECIMENOrdering Facility: [facility] Address: [address] [place] [address] Performed By: #### 5 8410-2 ####CERVANTES LABORATORYCLIA [id number] [address] Nucleated RBC (Bld) [#/Vol] 10*3/uL Normal <0.01 [facility] Comment on above: Order Comment: Speci men Type: BLOOD SPECIMENOrdering Facility: [facility] Address: [address] [place] [address] Performed By: #### 5 8410-2 ####CERVANTES LABORATORYCLIA [id number] [place] [address] [place] Platelet mean volume (Bld) [Entitic vol] 10.2 fL Normal 9.0-12.7 [facility] Comment on above: Order Comment: Speci men Type: BLOOD SPECIMENOrdering Facility: [facility] Address: [address] [place] [address] Performed By: #### 5 8410-2 ####CERVANTES LABORATORYCLIA [id number] [place] [address] [place] Platelets (Bld) [#/Vol] 175 10*3/uL Normal 150-400 [facility] Comment on above: Order Comment: Speci men Type: BLOOD SPECIMENOrdering Facility: [facility] Address: [address] [place] [address] Performed By: #### 5 8410-2 ####CERVANTES LABORATORYCLIA [id number] [place] [address] [place] RBC (Bld) [#/Vol] 4.02 10*6/uL Normal 3.90-5.20 [facility] Comment on above: Order Comment: Speci men Type: BLOOD SPECIMENOrdering Facility: [facility] Address: [address] [place] [address] Performed By: #### 5 8410-2 ####CERVANTES LABORATORYCLIA [id number] [place] [address] [place] WBC (Bld) [#/Vol] 5.70 10*3/uL Normal 3.70-11.00 [facility] Comment on above: Order Comment: Speci men Type: BLOOD SPECIMENOrdering Facility: [facility] Address: [address] [place] [address] Performed By: #### 5 8410-2 ####CERVANTES LABORATORYCLIA [id number] [place] [address] [place] Comprehensive metabolic 2000 panelon 09-20-2024 Albumin [Mass/Vol] 3.1 g/dL Low 3.9-4.9 [facility] Comment on above: Order Comment: Speci men Type: BLOOD SPECIMENOrdering Facility: [facility] Address: [address] [place] [address] Performed By: #### 2 4323-8, 93230-1 ####CERVANTES LABORATORYCLIA [id number] [place] [id number] [place] ALP [Catalytic activity/Vol] 41 U/L Normal 34-123 [facility] Comment on above: Order Comment: Speci men Type: BLOOD SPECIMENOrdering Facility: [facility] Address: [address] [place] [address] Performed By: #### 2 4323-8, 12301-2 ####CERVANTES LABORATORYCLIA [id number] [address] [place] ALT [Catalytic activity/Vol] 7 U/L Normal 7-38 [facility] Comment on above: Order Comment: Speci men Type: BLOOD SPECIMENOrdering Facility: [facility] Address: [address] [place] [address] Performed By: #### 2 4323-8, ####CERVANTES LABORATORYCLIA [id number] [place] [id number] [place] Anion gap [Moles/Vol] 7 mmol/L Low 8-15 [facility] Comment on above: Order Comment: Speci men Type: BLOOD SPECIMENOrdering Facility: [facility] Address: [address] [place] [address] Performed By: #### 2 4323-8, 21396-7 ####CERVANTES LABORATORYCLIA [id number] [place] [id number] [place] AST [Catalytic activity/Vol] 16 U/L Normal 13-35 [facility] Comment on above: Order Comment: Speci men Type: BLOOD SPECIMENOrdering Facility: [facility] Address: [address] [place] [address] Performed By: #### 2 4323-8, ####CERVANTES LABORATORYCLIA [id number] [place] [id number] [place] Bilirubin [Mass/Vol] 0.4 mg/dL Normal 0.2-1.3 [facility] Comment on above: Order Comment: Speci men Type: BLOOD SPECIMENOrdering Facility: [facility] Address: [address] [place] [address] Performed By: #### 2 4323-8, ####CERVANTES LABORATORYCLIA [id number] [place] [address] [place] Calcium [Mass/Vol] 8.9 mg/dL Normal 8.5-10.2 [facility] Comment on above: Order Comment: Speci men Type: BLOOD SPECIMENOrdering Facility: [facility] Address: [address] [place] [address] Performed By: #### 2 4323-8, ####CERVANTES LABORATORYCLIA [id number] [place] [address] [place] Chloride [Moles/Vol] 102 mmol/L Normal 98-107 [facility] Comment on above: Order Comment: Speci men Type: BLOOD SPECIMENOrdering Facility: [facility] Address: [address] [place] [address] Performed By: #### 2 4323-8, ####CERVANTES LABORATORYCLIA [id number] [place] [address] [place] CO2 [Moles/Vol] 29 mmol/L Normal 22-30 [facility] Comment on above: Order Comment: Speci men Type: BLOOD SPECIMENOrdering Facility: [facility] Address: [address] [place] [address] Performed By: #### 2 4323-8, ####CERVANTES LABORATORYCLIA [id number] [place] [address] [place] Creatinine [Mass/Vol] 0.82 mg/dL Normal 0.58-0.96 [facility] Comment on above: Order Comment: Speci men Type: BLOOD SPECIMENOrdering Facility: [facility] Address: [address] [place] [address] Performed By: #### 2 4323-8, ####CERVANTES LABORATORYCLIA [id number] [place] [address] [place] Creatinine and Glomerular filtration rate.predicted panel (S/P/Bld) 76 mL/min/1.73m??? Normal >=60 [facility] Comment on above: Order Comment: Suzanne garcia Type: BLOOD SPECIMENOrdering Facility: [facility] Address: [address] [place] [address] Result Comment: Winifred mated Glomerular Filtration Rate [...] Performed By: #### 2 4323-8, ####CERVANTES LABORATORYCLIA [id number] [place] [address] [place] Glucose [Mass/Vol] 134 mg/dL High 74-99 [facility] Comment on above: Order Comment: Suzanne garcia Type: BLOOD SPECIMENOrdering Facility: [facility] Address: [address] [place] [address] Result Comment: The [place] [employer] (ADA) provides guidance for cutoff [...] Standards of Medical Care in Diabetes 2016, [place] [employer]. Diabetes Care. 2016.39(Suppl 1). Performed By: #### 2 4323-8, 04150-7 ####CERVANTES LABORATORYCLIA [id number] [place] [address] [place] Potassium [Moles/Vol] 4.7 mmol/L Normal 3.7-5.1 [facility] Comment on above: Order Comment: Speci men Type: BLOOD SPECIMENOrdering Facility: [facility] Address: [address] [place] [address] Performed By: #### 2 4323-8, ####CERVANTES LABORATORYCLIA [id number] [place] [address] [place] Protein [Mass/Vol] 5.9 g/dL Low 6.3-8.0 [facility] Comment on above: Order Comment: Speci men Type: BLOOD SPECIMENOrdering Facility: [facility] Address: [address] [place] [address] Performed By: #### 2 4323-8, ####CERVANTES LABORATORYCLIA [id number] [place] [address] [place] Sodium [Moles/Vol] 138 mmol/L Normal 136-144 [facility] Comment on above: Order Comment: Speci men Type: BLOOD SPECIMENOrdering Facility: [facility] Address: [address] [place] [address] Performed By: #### 2 4323-8, ####CERVANTES LABORATORYCLIA [id number] [place] [address] [place] Urea nitrogen [Mass/Vol] 11 mg/dL Normal 7-21 [facility] Comment on above: Order Comment: Speci men Type: BLOOD SPECIMENOrdering Facility: [facility] Address: [address] [place] [address] Performed By: #### 2 4323-8, ####CERVANTES LABORATORYCLIA [id number] [place] [address] [place] Magnesium SerPl-mCncon 09-20 Magnesium [Mass/Vol] 1.9 mg/dL Normal 1.7-2.3 [facility] Comment on above: Order Comment: Speci men Type: BLOOD SPECIMENOrdering Facility: [facility] Address: [address] [place] [address] Performed By: #### 2 4323-8, 97063-2 ####CERVANTES LABORATORYCLIA [id number] [place] [address] [place] PT panel Coag (PPP)on 2024 INR Coag (PPP) [Relative time] 1.6 {INR} High 0.9-1.3 [facility] Comment on above: Order Comment: Suzanne garcia Type: BLOOD SPECIMENOrdering Facility: [facility] Address: [address] [place] [address] Result Comment: Kaycee min K Antagonist (VKA) Therapeutic Range: INR 2 to 3 (Target INR of 2.5) Note: For patients treated with VKA drugs, such as warfarin, the [place] [employer] 2012 Guideline recommends [...] Chest 2012, 141:7S-47S Roshni RA, et al. [facility] 2017, 70: 252-289 Performed By: #### 3 4528-0 ####M[facility] LABORATORYCLIA [id number] [place] [id number] [place] PT Coag (PPP) [Time] 16.7 s High 9.7-13.0 [facility] Comment on above: Order Comment: Suzanne garcia Type: BLOOD SPECIMENOrdering Facility: [facility] Address: [address] [place] [address] Performed By: #### 3 4528-0 ####M[facility] LABORATORYCLIA [id number] [place] [id number] [place] THERAPY NTon 09-20-2024 THERAPY NT HNO ID: [id number] Author: CHRISTIANO MAYEN OT/Abiodun Service: ? Author Type: Occupational Therapist Type: Therapy (PT/OT/Speech/Resp) Filed: 09/20/2024 11:14 Note Text: Summary: OT Evaluation Occupational Therapy Evaluation Summary SERVICE DATE: 09/20/2024 SERVICE TIME: 1031 to 1106 ROOM: [id number] OT 6 Clicks Score: 14 DISCHARGE RECOMMENDATIONS [...] is struggling to ambulate. Patient admitted to [facility] with Dx: Decreased activities of daily living (ADL), Fall at home, initial encounter Relevant Past Medical History: DM, edema, depression,asthma, obesity, irsutism, venous insufficiency, oseteomyeliitis of foot, SLE, cerebral palsy, pulmonary embolism, hypothyroidism, insomnai, CAD, migraines, HTN, hysterectomy HOME LIVING Patient Lives With: Facility Care, Spouse, Other: See Comment Comments: [place] with spouse Assistance Available: 24-Hour Comments: [facility] staff for toileting and shower Entry To Home: No Stairs Number Of Stairs To Bed/Bath: 0 Tub/Shower Type: Accessible WIS with shower chair + grab bars, has assistance/supervision for transfers Laundry: [facility] staff completes Equipment Owned: Lift Chair, [...] Unsteadiness on feet TREATMENT INTERVENTIONS Evaluation, Self Correction Management (89271) Timed Code Treatment (minutes): 17 Skilled Treatment Time (minutes): 32 TRAINING AND EDUCATION PROVIDED Activity Adaptation/Compensatory Strategies, Adaptive Equipment/DME, Bed Mobility, Benefits of In-Hospital Mobility, Cognitive Skills, Command Following, Coping Skills/Resiliency, Discharge Planning, Expected Functional Level, Functional Mobility Involving ADLs, Insight into Deficits, Lower Extremity Dressing, Memory/Attention, Orientation, Positioning, Pain Management, Safety/Judgment, Role of Occupational Therapy, Sitting Balance to Improve [place] with ADLs/Self-Care, Standing Balance to Improve [place] with ADLs/Self-Care, Toileting , Transfer - Sit to Stand THERAPEUTIC SKILLS USED Activity Dosing, Cues for Sequencing/Proper Technique for Activity, Cuing Tactile, Cuing Verbal, Cuing Visual, Facilitation of Joint Range of Motion, Movement Facilitation, Muscle Activation Facilitation, Physical Assist, Teach-Back for Ed (more content not included)... Normal [facility] CBC panel Auto (Bld)on 09-19 Erythrocyte distribution width (RBC) [Ratio] 13.2 % Normal 11.5-15.0 [facility] Comment on above: Order Comment: Speci men Type: BLOOD SPECIMENOrdering Facility: [facility] Address: [address] [place] [address] Performed By: #### 5 8410-2 ####CERVANTES LABORATORYCLIA [id number] [address] [place] Hematocrit (Bld) [Volume fraction] 33.3 % Low 36.0-46.0 [facility] Comment on above: Order Comment: Speci men Type: BLOOD SPECIMENOrdering Facility: [facility] Address: [address] [place] [address] Performed By: #### 5 8410-2 ####CERVANTES LABORATORYCLIA [id number] [address] [place] Hemoglobin (Bld) [Mass/Vol] 11.0 g/dL Low 11.5-15.5 [facility] Comment on above: Order Comment: Speci men Type: BLOOD SPECIMENOrdering Facility: [facility] Address: [address] [place] [address] Performed By: #### 5 8410-2 ####CERVANT[facility] LABORATORYCLIA [id number] [address] [place] MCH (RBC) [Entitic mass] 30.4 pg Normal 26.0-34.0 [facility] Comment on above: Order Comment: Speci men Type: BLOOD SPECIMENOrdering Facility: [facility] Address: [address] [place] [address] Performed By: #### 5 8410-2 ####CERVANT[facility] LABORATORYCLIA [id number] [address] MCHC (RBC) [Mass/Vol] 33.0 g/dL Normal 30.5-36.0 [facility] Comment on above: Order Comment: Speci men Type: BLOOD SPECIMENOrdering Facility: [facility] Address: [address] [place] [address] Performed By: #### 5 8410-2 ####CERVANT[facility] LABORATORYCLIA [id number] [address] MCV (RBC) [Entitic vol] 92.0 fL Normal 80.0-100.0 [facility] Comment on above: Order Comment: Speci men Type: BLOOD SPECIMENOrdering Facility: [facility] Address: [address] [place] [address] Performed By: #### 5 8410-2 ####CERVANT[facility] LABORATORYCLIA [id number] [address] Nucleated RBC (Bld) [#/Vol] 10*3/uL Normal <0.01 [facility] Comment on above: Order Comment: Speci men Type: BLOOD SPECIMENOrdering Facility: [facility] Address: [address] [place] [address] Performed By: #### 5 8410-2 ####CERVANTES LABORATORYCLIA [id number] [address] Platelet mean volume (Bld) [Entitic vol] 10.2 fL Normal 9.0-12.7 [facility] Comment on above: Order Comment: Speci men Type: BLOOD SPECIMENOrdering Facility: [facility] Address: [address] [place] [address] Performed By: #### 5 8410-2 ####CERVANT[facility] LABORATORYCLIA [id number] [address] Platelets (Bld) [#/Vol] 158 10*3/uL Normal 150-400 [facility] Comment on above: Order Comment: Speci men Type: BLOOD SPECIMENOrdering Facility: [facility] Address: [address] [place] [address] Performed By: #### 5 8410-2 ####CERVANT[facility] LABORATORYCLIA [id number] [address] RBC (Bld) [#/Vol] 3.62 10*6/uL Low 3.90-5.20 [facility] Comment on above: Order Comment: Speci men Type: BLOOD SPECIMENOrdering Facility: [facility] Address: [facility] [place] [address] Performed By: #### 5 8410-2 ####CREVANT[facility] LABORATORYCLIA [id number] [address] WBC (Bld) [#/Vol] 7.29 10*3/uL Normal 3.70-11.00 [facility] Comment on above: Order Comment: Speci men Type: BLOOD SPECIMENOrdering Facility: [facility] Address: [facility] [place] [address] Performed By: #### 5 8410-2 ####CERV[facility] LABORATORYCLIA [id number] [address] Comprehensive metabolic 2000 panelon 09-19-2024 Albumin [Mass/Vol] 2.7 g/dL Low 3.9-4.9 [facility] Comment on above: Order Comment: Speci men Type: BLOOD SPECIMENOrdering Facility: [facility] Address: [facility] [place] [address] Performed By: #### 2 4323-8, 67499-0 ####CERV[facility] LABORATORYCLIA [id number] [address] ALP [Catalytic activity/Vol] 36 U/L Normal 34-123 [facility] Comment on above: Order Comment: Speci men Type: BLOOD SPECIMENOrdering Facility: [facility] Address: [facility] [place] [address] Performed By: #### 2 4323-8, 04039-7 ####CERV[facility] LABORATORYCLIA [id number] [address] ALT [Catalytic activity/Vol] 6 U/L Low 7-38 [facility] Comment on above: Order Comment: Speci men Type: BLOOD SPECIMENOrdering Facility: [facility] Address: [address] [place] [place] [id number] Performed By: #### 2 4323-8, 50797-3 ####CERVANTES LABORATORYCLIA [id number] [place] [address] [place] Anion gap [Moles/Vol] 13 mmol/L Normal 8-15 [facility] Comment on above: Order Comment: Speci men Type: BLOOD SPECIMENOrdering Facility: [facility] Address: [address] [place] [address] Performed By: #### 2 432-8, ####CERVANTES LABORATORYCLIA [id number] [place] [address] [place] AST [Catalytic activity/Vol] 19 U/L Normal 13-35 [facility] Comment on above: Order Comment: Speci men Type: BLOOD SPECIMENOrdering Facility: [facility] Address: [address] [place] [address] Performed By: #### 2 4322-8, ####CERVANT[facility] LABORATORYCLIA [id number] [place] [address] [place] Bilirubin [Mass/Vol] 0.5 mg/dL Normal 0.2-1.3 [facility] Comment on above: Order Comment: Speci men Type: BLOOD SPECIMENOrdering Facility: [facility] Address: [address] [place] [address] Performed By: #### 2 432-8, ####CERVANTES LABORATORYCLIA [id number] [place] [address] [place] Calcium [Mass/Vol] 8.6 mg/dL Normal 8.5-10.2 [facility] Comment on above: Order Comment: Speci men Type: BLOOD SPECIMENOrdering Facility: [facility] Address: [address] [place] [address] Performed By: #### 2 4323-8, 00705-4 ####CERVANT[facility] LABORATORYCLIA [id number] [address] [place] Chloride [Moles/Vol] 103 mmol/L Normal 98-107 [facility] Comment on above: Order Comment: Speci men Type: BLOOD SPECIMENOrdering Facility: [facility] Address: [address] [place] [address] Performed By: #### 2 4323-8, ####CERV[facility] LABORATORYCLIA [id number] [address] CO2 [Moles/Vol] 24 mmol/L Normal 22-30 [facility] Comment on above: Order Comment: Speci men Type: BLOOD SPECIMENOrdering Facility: [facility] Address: [address] [place] [address] Performed By: #### 2 432-8, ####CERVANTES LABORATORYCLIA [id number] [address] Creatinine [Mass/Vol] 0.76 mg/dL Normal 0.58-0.96 [facility] Comment on above: Order Comment: Naeemi men Type: BLOOD SPECIMENOrdering Facility: [facility] Address: [address] [place] [address] Performed By: #### 2 4323-8, ####CERVANTES LABORATORYCLIA [id number] [address] Creatinine and Glomerular filtration rate.predicted panel (S/P/Bld) 83 mL/min/1.73m??? Normal >=60 [facility] Comment on above: Order Comment: Speci men Type: BLOOD SPECIMENOrdering Facility: [facility] Address: [address] [place] [address] Result Comment: Winifred mated Glomerular Filtration Rate [...] Performed By: #### 2 4323-8, ####CERVANT[facility] LABORATORYCLIA [id number] [place] [address] [place] Glucose [Mass/Vol] 106 mg/dL High 74-99 [facility] Comment on above: Order Comment: Suzanne garcia Type: BLOOD SPECIMENOrdering Facility: [facility] Address: [address] [place] [address] Result Comment: The [place] [employer] (ADA) provides guidance for cutoff [...] Standards of Medical Care in Diabetes 2016, [place] [employer]. Diabetes Care. 2016.39(Suppl 1). Performed By: #### 2 4328, ####CERVANT[facility] LABORATORYCLIA [id number] [place] [address] [place] Potassium [Moles/Vol] 4.7 mmol/L Normal 3.7-5.1 [facility] Comment on above: Order Comment: Suzanne garcia Type: BLOOD SPECIMENOrdering Facility: [facility] Address: [address] [place] [address] Performed By: #### 2 4328, ####CERVANT[facility] LABORATORYCLIA [id number] [place] [id number] [place] Protein [Mass/Vol] 5.3 g/dL Low 6.3-8.0 [facility] Comment on above: Order Comment: Suzanne garcia Type: BLOOD SPECIMENOrdering Facility: [facility] Address: [address] [place] [address] Performed By: #### 2 43238, ####CERVANT[facility] LABORATORYCLIA [id number] [place] [address] [place] Sodium [Moles/Vol] 140 mmol/L Normal 136-144 [facility] Comment on above: Order Comment: Suzanne garcia Type: BLOOD SPECIMENOrdering Facility: [facility] Address: [address] [place] [address] Performed By: #### 2 4323-8, ####CERVANTES LABORATORYCLIA [id number] [place] [id number] [facility] Urea nitrogen [Mass/Vol] 10 mg/dL Normal 7-21 [facility] Comment on above: Order Comment: Speccandelaria men Type: BLOOD SPECIMENOrdering Facility: [facility] Address: [address] [place] [place] [id number] Performed By: #### 2 4323-8, ####[facility] LABORATORYCLIA [id number] [address] [facility] HISTORY PHYSICALon HISTORY PHYSICAL HNO ID: [id number] Author: ARNOL LIN PA-C Service: Hospital Medicine Author Type: Physician [employer] Programmer Type: H&P Filed: 09/19/2024 01:01 Note Text: [...] Casey MD, MD NIGHT AND WEEKEND COVERAGE: [facility] COVERAGE: Days: [phone], please page attending physician. Nights: [phone], please page [facility] Night coverage pager [phone]. Subjective CHIEF COMPLAINT: Fall, left knee pain [...] changes, peripheral edema, paresthesia or focal weaknesses. [facility] ED Course: HDS, afebrile. Labs unremarkable. Imaging [...] daily. HYDROcodone-loyda (more content not included)... Normal [facility] Magnesium SerPl-mCncon 09-19 Magnesium [Mass/Vol] 1.8 mg/dL Normal 1.7-2.3 [facility] Comment on above: Order Comment: Speci men Type: BLOOD SPECIMENOrdering Facility: [facility] Address: [address] [place] [address] Performed By: #### 2 4323-8, 69139-7 ####[facility] LABORATORYCLIA [id number] [place] [address] [place] NUTRITIONon 09-19-2024 NUTRITION HNO ID: [id number] Author: DEVYN KAHN RD Service: Nutrition Therapy [...] Greater than 75% estimated energy needs (Drinks [employer] Instant Breakfast and either Premier or Melton [...] to trial Ensure Max. Pt to order [employer] Instant Breakfast. Diet Orders (From admission, onward) [...] Drain Duration External Collection Device 09/18/24 2332 [facility] <1 day MNT Billing: $ Initial Assessment: 1-15 minutes SIGNATURE: Devyn Kahn RD PATIENT NAME: Randolph Hunter DATE: September 19, 2024 TIME: 1:12 PM Normal [facility] PT panel Coag (PPP)on 2024 INR Coag (PPP) [Relative time] 1.7 {INR} High 0.9-1.3 [facility] Comment on above: Order Comment: Speci men Type: BLOOD SPECIMENOrdering Facility: [facility] Address: [address] [place] [address] Result Comment: Kaycee min K Antagonist (VKA) Therapeutic Range: INR 2 to 3 (Target INR of 2.5) Note: For patients treated with VKA drugs, such as warfarin, the [employer] 2012 Guideline recommends [...] Chest 2012, 141:7S-47S Roshni CASTILLO, et al. [facility] 2017, 70: 252-289 Performed By: #### 3 4528-0 ####[facility] LABORATORYCLIA [id number] [place] [address] [place] PT Coag (PPP) [Time] 17.9 s High 9.7-13.0 [facility] Comment on above: Order Comment: Speci men Type: BLOOD SPECIMENOrdering Facility: [facility] Address: [address] [place] [address] Performed By: #### 3 4528-0 ####M[facility]WAY LABORATORYCLIA [id number] [place] [id number] [place] THERAPY NTon 09-19-2024 THERAPY NT HNO ID: [id number] Author: ESTELLE CAGE PT Service: Physical Therapy Author Type: Physical Therapist Type: Therapy (PT/OT/Speech/Resp) Filed: 09/19/2024 17:41 Note Text: Summary: PT evaluation Physical Therapy Evaluation Summary SERVICE DATE: 09/19/2024 SERVICE TIME: 1545 to 1629 ROOM: [id number]- PT 6 Clicks Score: 12 DISCHARGE RECOMMENDATIONS [...] time. Leg Injury . Patient admitted to [facility] with Dx: Decreased activities of daily living (ADL), Fall at home, initial encounter Relevant Past Medical History: DM, edema, depression,asthma, obesity, irsutism, venous insufficiency, oseteomyeliitis of foot, SLE, cerebral palsy, pulmonary embolism, hypothyroidism, insomnai, CAD, migraines, HTN, hysterectomy HOME LIVING Patient Lives With: Spouse Assistance Available: 24-Hour, Other: See Comment Comments: [facility] staff for toileting and shower Entry [...] Reduced mobility-other TREATMENT INTERVENTIONS Evaluation, Therapeutic Activity (32190) Timed Code Treatment (minutes): 25 Skilled Treatment Time (minutes): 44 $ Evaluation-Low (86835) Billed Units: 1 unit Therapeutic Activity (31201) Treatment Minutes: 25 $ Therapeutic Activity (41345) Billed Units: 2 units Range of Motion: [...] Sit to Supi (more content not included)... [facility] THERAPY NT HNO ID: [id number] Author: ESTELLE CAGE PT Service: Physical Therapy Author Type: Physical Therapist Type: Therapy (PT/OT/Speech/Resp) Filed: 09/19/2024 11:07 Note Text: Summary: PT missed visit PHYSICAL THERAPY MISSED VISIT SERVICE DATE: 09/19/2024 SERVICE TIME: 1105 ROOM: [place] [address] Patient not seen due to Patient Not Available. Discussed patient with RN and patient in the process of transferring to . Will approach as patient is available/appropriate. SIGNATURE: Estelle Cage PT PATIENT NAME: Randolph Hunter DATE: September 19, 2024 TIME: 11:06 AM Normal [facility] URINALYSIS, REFLEX MICROSCOP ICon 09-19-2024 Bilirubin Ql (U) Negative Normal Negative [facility] Comment on above: Order Comment: Speci men Type: URINE SPECIMENOrdering Facility: [facility] Address: [address] [place] [address] Performed By: #### L [id number] ####[facility] LABORATORYCLIA [id number] [address] OF [place] Clarity (Unsp spec) Clear Normal Clear [facility] Comment on above: Order Comment: Speci men Type: URINE SPECIMENOrdering Facility: [facility] Address: [address] [place] [address] Performed By: #### L [id number] ####[facility] LABORATORYCLIA [id number] [address] OF [facility] Color (U) Yellow Normal Yellow [facility] Comment on above: Order Comment: Speci men Type: URINE SPECIMENOrdering Facility: [facility] Address: [address] [place] [address] Performed By: #### L [id number] ####[facility] LABORATORYCLIA [id number] [address] [place] Glucose Test strip (U) [Mass/Vol] Negative Normal Negative [facility] Comment on above: Order Comment: Speci men Type: URINE SPECIMENOrdering Facility: [facility] Address: [address] [place] [address] Performed By: #### L [id number] ####[facility] LABORATORYCLIA [id number] [address] OF [place] Hemoglobin Ql (U) Negative Normal Negative [facility] Comment on above: Order Comment: Speci men Type: URINE SPECIMENOrdering Facility: [facility] Address: [address] [place] [address] Performed By: #### L [id number] ####[facility] LABORATORYCLIA [id number] [address] STATES [facility] Ketones Ql (U) Negative Normal Negative [facility] Comment on above: Order Comment: Speci men Type: URINE SPECIMENOrdering Facility: [facility] Address: [address] [place] [address] Performed By: #### L [id number] ####[facility] LABORATORYCLIA [id number] [address] Leukocyte esterase Test strip Ql (U) Negative Normal Negative [facility] Comment on above: Order Comment: Speci men Type: URINE SPECIMENOrdering Facility: [facility] Address: [address] [place] [address] Performed By: #### L [id number] ####[facility] LABORATORYCLIA [id number] [address] STATES [place] Nitrite Ql (U) Negative Normal Negative [facility] Comment on above: Order Comment: Speci men Type: URINE SPECIMENOrdering Facility: [facility] Address: [address] [place] [address] Performed By: #### L [id number] ####[facility] LABORATORYCLIA [id number] [address] [place] [address] pH (U) 7.0 [pH] Normal 5.0-8.0 [facility] Comment on above: Order Comment: Speci men Type: URINE SPECIMENOrdering Facility: [facility] Address: [address] [place] [address] Performed By: #### L [id number] ####[facility] LABORATORYCLIA [id number] [address] Protein (U) [Mass/Vol] Negative Normal Negative [facility] Comment on above: Order Comment: Speci men Type: URINE SPECIMENOrdering Facility: [facility] Address: [address] [place] [address] Performed By: #### L [id number] ####[facility] LABORATORYCLIA [id number] [address] Specific gravity (U) [Rel density] 1.010 Normal 1.005-1.03 0 [facility] Comment on above: Order Comment: Speci men Type: URINE SPECIMENOrdering Facility: [facility] Address: [address] [place] [address] Performed By: #### L [id number] ####[facility] LABORATORYCLIA [id number] [address] Urobilinogen Ql (U) 0.2 EU/dL Normal 0.2-1.0 EU/dL [facility] Comment on above: Order Comment: Speci men Type: URINE SPECIMENOrdering Facility: [facility] Address: [address] [place] [address] Performed By: #### L [id number] ####[facility] LABORATORYCLIA [id number] [address] OF [place] ALLIED HEALTHon 09-18-2024 ALLIED HEALTH HNO ID: [id number] Author: OSVALDO BRUCE RT(R) Service: Radiology Author Type: Account Supervisor Type: [facility] Filed: 09/18/2024 23:10 Note [...] PATIENT PRESENTS WITH AN IMPLANTABLE OR ATTACHED PROGRAM REVIEW DIRECTOR: No RADIOLOGY DEPARTMENT: General X-ray: Exam(s) Completed: Pelvis X-Ray: Pelvis with Hip Left Lower Extremity X-Ray(s): Ankle, Left PERIPHERAL IV DATA: Not applicable SIGNED BY: RT Lissett(R) September 18, 2024 11:09 PM [facility] HNO ID: [id number] Author: MONTSERRAT CUEVAS RT(R) Service: Radiology Author Type: Technologist Type: [facility] Filed: 09/18/2024 10:32 Note Text: Radiology [...] PATIENT PRESENTS WITH AN IMPLANTABLE OR ATTACHED PROGRAM REVIEW DIRECTOR: No RADIOLOGY DEPARTMENT: General X-ray: Exam(s) Completed: Lower Extremity X-Ray(s): Knee, AP / LAT Left PERIPHERAL IV DATA: Not applicable SIGNED BY: RT Geeta(R) September 18, 2024 10:31 AM [facility] CBC W Auto Differential pane l (Bld)on 09-18-2024 Basophils (Bld) [#/Vol] 10*3/uL Normal <0.11 [facility] Comment on above: Order Comment: Speci men Type: BLOOD SPECIMENOrdering Facility: [facility] Address: [address] [place] [address] Performed By: #### 5 7021-8 ####[facility] LABORATORYCLIA [id number] [place] [address] [place] Basophils/100 WBC (Bld) 0.3 % Normal [facility] Comment on above: Order Comment: Speci men Type: BLOOD SPECIMENOrdering Facility: [facility] Address: [address] [place] [address] Performed By: #### 5 7021-8 ####[facility] LABORATORYCLIA [id number] [place] [address] [place] Differential cell count method Nom (Bld) Auto Normal [facility] Comment on above: Order Comment: Speci men Type: BLOOD SPECIMENOrdering Facility: [facility] Address: [address] [place] [address] Performed By: #### 5 7021-8 ####[facility] LABORATORYCLIA [id number] [place] [address] [place] Eosinophils (Bld) [#/Vol] 0.16 10*3/uL Normal <0.46 [facility] Comment on above: Order Comment: Speci men Type: BLOOD SPECIMENOrdering Facility: [facility] Address: [address] [place] [address] Performed By: #### 5 7021-8 ####[facility] LABORATORYCLIA [id number] [place] [address] [place] Eosinophils/100 WBC (Bld) 2.1 % Normal [facility] Comment on above: Order Comment: Speci men Type: BLOOD SPECIMENOrdering Facility: [facility] Address: [address] [place] [address] Performed By: #### 5 7021-8 ####[facility] LABORATORYCLIA [id number] [place] [address] [place] Erythrocyte distribution width (RBC) [Ratio] 13.3 % Normal 11.5-15.0 [facility] Comment on above: Order Comment: Speci men Type: BLOOD SPECIMENOrdering Facility: [facility] Address: [address] [place] [address] Performed By: #### 5 7021-8 ####[facility] LABORATORYCLIA [id number] [place] [address] [place] Hematocrit (Bld) [Volume fraction] 37.2 % Normal 36.0-46.0 [facility] Comment on above: Order Comment: Speci men Type: BLOOD SPECIMENOrdering Facility: [facility] Address: [address] [place] [address] Performed By: #### 5 7021-8 ####[facility] LABORATORYCLIA [id number] [place] [address] [place] Hemoglobin (Bld) [Mass/Vol] 12.6 g/dL Normal 11.5-15.5 [facility] Comment on above: Order Comment: Speci men Type: BLOOD SPECIMENOrdering Facility: [facility] Address: [address] [place] [address] Performed By: #### 5 7021-8 ####[facility] LABORATORYCLIA [id number] [place] [address] [place] Immature granulocytes (Bld) [#/Vol] 10*3/uL Normal <0.10 [facility] Comment on above: Order Comment: Speci men Type: BLOOD SPECIMENOrdering Facility: [facility] Address: [address] [place] [address] Performed By: #### 5 7021-8 ####[facility] LABORATORYCLIA [id number] [address] [place] Immature granulocytes/100 WBC (Bld) 0.3 % Normal [facility] Comment on above: Order Comment: Speci men Type: BLOOD SPECIMENOrdering Facility: [facility] Address: [address] [place] [address] Performed By: #### 5 7021-8 ####[facility] LABORATORYCLIA [id number] [place] [address] [place] Lymphocytes (Bld) [#/Vol] 1.71 10*3/uL Normal 1.00-4.00 [facility] Comment on above: Order Comment: Speci men Type: BLOOD SPECIMENOrdering Facility: [facility] Address: [address] [place] [address] Performed By: #### 5 7021-8 ####[facility] LABORATORYCLIA [id number] [address] Lymphocytes/100 WBC (Bld) 22.4 % Normal [facility] Comment on above: Order Comment: Speci men Type: BLOOD SPECIMENOrdering Facility: [facility] Address: [address] [place] [address] Performed By: #### 5 7021-8 ####[facility] LABORATORYCLIA [id number] [address] MCH (RBC) [Entitic mass] 30.8 pg Normal 26.0-34.0 [facility] Comment on above: Order Comment: Speci men Type: BLOOD SPECIMENOrdering Facility: [facility] Address: [address] [place] [address] Performed By: #### 5 7021-8 ####[facility] LABORATORYCLIA [id number] [address] [place] [facility] MCHC (RBC) [Mass/Vol] 33.9 g/dL Normal 30.5-36.0 [facility] Comment on above: Order Comment: Speci men Type: BLOOD SPECIMENOrdering Facility: [facility] Address: [address] [place] [address] Performed By: #### 5 7021-8 ####[facility] LABORATORYCLIA [id number] [address] MCV (RBC) [Entitic vol] 91.0 fL Normal 80.0-100.0 [facility] Comment on above: Order Comment: Speci men Type: BLOOD SPECIMENOrdering Facility: [facility] Address: [address] [place] [address] Performed By: #### 5 7021-8 ####[facility] LABORATORYCLIA [id number] [address] Monocytes (Bld) [#/Vol] 0.54 10*3/uL Normal <0.87 [facility] Comment on above: Order Comment: Speci men Type: BLOOD SPECIMENOrdering Facility: [facility] Address: [address] [place] [address] Performed By: #### 5 7021-8 ####[facility] LABORATORYCLIA [id number] [address] [place] Monocytes/100 WBC (Bld) 7.1 % Normal [facility] Comment on above: Order Comment: Speci men Type: BLOOD SPECIMENOrdering Facility: [facility] Address: [address] [place] [address] Performed By: #### 5 7021-8 ####[facility] LABORATORYCLIA [id number] [place] [address] [place] Neutrophils (Bld) [#/Vol] 5.18 10*3/uL Normal 1.45-7.50 [facility] Comment on above: Order Comment: Speci men Type: BLOOD SPECIMENOrdering Facility: [facility] Address: [address] [place] [address] Performed By: #### 5 7021-8 ####[facility] LABORATORYCLIA [id number] [place] [address] [place] Neutrophils/100 WBC (Bld) 67.8 % Normal [facility] Comment on above: Order Comment: Speci men Type: BLOOD SPECIMENOrdering Facility: [facility] Address: [address] [place] [address] Performed By: #### 5 7021-8 ####[facility] LABORATORYCLIA [id number] [place] [address] [place] Nucleated RBC (Bld) [#/Vol] 10*3/uL Normal <0.01 [facility] Comment on above: Order Comment: Speci men Type: BLOOD SPECIMENOrdering Facility: [facility] Address: [address] [place] [address] Performed By: #### 5 7021-8 ####C[facility] LABORATORYCLIA [id number] [place] [address] [place] Nucleated RBC/100 WBC (Bld) [Ratio] 0.0 /100 WBC Normal [facility] Comment on above: Order Comment: Speci men Type: BLOOD SPECIMENOrdering Facility: [facility] Address: [address] [place] [address] Performed By: #### 5 7021-8 ####[facility] LABORATORYCLIA [id number] [place] [address] [place] Platelet mean volume (Bld) [Entitic vol] 10.0 fL Normal 9.0-12.7 [facility] Comment on above: Order Comment: Speci men Type: BLOOD SPECIMENOrdering Facility: [facility] Address: [address] [place] [address] Performed By: #### 5 7021-8 ####[facility] LABORATORYCLIA [id number] [place] [address] [place] Platelets (Bld) [#/Vol] 176 10*3/uL Normal 150-400 [facility] Comment on above: Order Comment: Speci men Type: BLOOD SPECIMENOrdering Facility: [facility] Address: [address] [place] [address] Performed By: #### 5 7021-8 ####CERV[facility] LABORATORYCLIA [id number] [place] [address] [place] RBC (Bld) [#/Vol] 4.09 10*6/uL Normal 3.90-5.20 [facility] Comment on above: Order Comment: Speci men Type: BLOOD SPECIMENOrdering Facility: [facility] Address: [address] [place] [address] Performed By: #### 5 7021-8 ####[facility] LABORATORYCLIA [id number] [place] [id number] [place] WBC (Bld) [#/Vol] 7.63 10*3/uL Normal 3.70-11.00 [facility] Comment on above: Order Comment: Speci men Type: BLOOD SPECIMENOrdering Facility: [facility] Address: [address] [place] [address] Performed By: #### 5 7021-8 ####CERV[facility] LABORATORYCLIA [id number] [place] [id number] [place] CT KNEE WO IVCON LTon 2024 CT KNEE WO IVCON LT * * *Final Report* * * DATE OF EXAM: Sep 18 2024 10:31PM [facility] 0083 - CT KNEE WO IVCON LT [...] Small joint effusion. * Tricompartmental degenerative changes. Membership Sales Representative: CEM Transcribe Date/Time: Sep 18 2024 11:34P Dictated by : STEPHANE GRIMES MD This examination was interpreted and the report reviewed and electronically signed by: STEPHANE GRIMES MD on Sep 18 2024 11:37PM EST [id number] Normal [facility] Comprehensive metabolic 2000 panelon 09-18-2024 Albumin [Mass/Vol] 3.2 g/dL Low 3.9-4.9 [facility] Comment on above: Order Comment: Speci men Type: BLOOD SPECIMENOrdering Facility: [facility] Address: [address] [place] [address] Performed By: #### 2 4323-8 ####[facility] LABORATORYCLIA [id number] [address] [place] ALP [Catalytic activity/Vol] 42 U/L Normal 34-123 [facility] Comment on above: Order Comment: Speci men Type: BLOOD SPECIMENOrdering Facility: [facility] Address: [address] [place] [address] Performed By: #### 2 4323-8 ####CERV[facility] LABORATORYCLIA [id number] [place] [address] [place] ALT [Catalytic activity/Vol] 8 U/L Normal 7-38 [facility] Comment on above: Order Comment: Speci men Type: BLOOD SPECIMENOrdering Facility: [facility] Address: [address] [place] [address] Performed By: #### 2 4323-8 ####CERV[facility] LABORATORYCLIA [id number] [place] [address] [place] Anion gap [Moles/Vol] 10 mmol/L Normal 8-15 [facility] Comment on above: Order Comment: Speci men Type: BLOOD SPECIMENOrdering Facility: [facility] Address: [address] [place] [address] Performed By: #### 2 4323-8 ####C[facility] LABORATORYCLIA [id number] [address] [place] AST [Catalytic activity/Vol] 19 U/L Normal 13-35 [facility] Comment on above: Order Comment: Speci men Type: BLOOD SPECIMENOrdering Facility: [facility] Address: [address] [place] [address] Performed By: #### 2 4323-8 ####C[facility] LABORATORYCLIA [id number] [place] [address] [place] Bilirubin [Mass/Vol] 0.5 mg/dL Normal 0.2-1.3 [facility] Comment on above: Order Comment: Speci men Type: BLOOD SPECIMENOrdering Facility: [facility] Address: [address] [place] [address] Performed By: #### 2 4323-8 ####C[facility] LABORATORYCLIA [id number] [address] [place] Calcium [Mass/Vol] 9.1 mg/dL Normal 8.5-10.2 [facility] Comment on above: Order Comment: Speci men Type: BLOOD SPECIMENOrdering Facility: [facility] Address: [address] [place] [address] Performed By: #### 2 4323-8 ####C[facility] LABORATORYCLIA [id number] [address] Chloride [Moles/Vol] 98 mmol/L Normal 98-107 [facility] Comment on above: Order Comment: Speci men Type: BLOOD SPECIMENOrdering Facility: [facility] Address: [address] [place] [address] Performed By: #### 2 4323-8 ####CERV[facility] LABORATORYCLIA [id number] [address] [place] CO2 [Moles/Vol] 28 mmol/L Normal 22-30 [facility] Comment on above: Order Comment: Speci men Type: BLOOD SPECIMENOrdering Facility: [facility] Address: [address] [place] [address] Performed By: #### 2 4323-8 ####CERV[facility] LABORATORYCLIA [id number] [address] Creatinine [Mass/Vol] 0.80 mg/dL Normal 0.58-0.96 [facility] Comment on above: Order Comment: Speci men Type: BLOOD SPECIMENOrdering Facility: [facility] Address: [address] [place] [address] Performed By: #### 2 4323-8 ####CERV[facility] LABORATORYCLIA [id number] [address] Creatinine and Glomerular filtration rate.predicted panel (S/P/Bld) 78 mL/min/1.73m??? Normal >=60 [facility] Comment on above: Order Comment: Speci men Type: BLOOD SPECIMENOrdering Facility: [facility] Address: [address] [place] [address] Result Comment: Winifred mated Glomerular Filtration Rate [...] Performed By: #### 2 4323-8 ####C[facility] LABORATORYCLIA [id number] [place] [address] [place] Glucose [Mass/Vol] 121 mg/dL High 74-99 [facility] Comment on above: Order Comment: Suzanne garcia Type: BLOOD SPECIMENOrdering Facility: [facility] Address: [address] [place] [address] Result Comment: The [place] [employer] (ADA) provides guidance for cutoff [...] Standards of Medical Care in Diabetes 2016, [place] [employer]. Diabetes Care. 2016.39(Suppl 1). Performed By: #### 2 4323-8 ####C[facility] LABORATORYCLIA [id number] [place] [address] [place] Potassium [Moles/Vol] 4.3 mmol/L Normal 3.7-5.1 [facility] Comment on above: Order Comment: Suzanne garcia Type: BLOOD SPECIMENOrdering Facility: [facility] Address: [address] [place] [address] Performed By: #### 2 4323-8 ####CERV[facility] LABORATORYCLIA [id number] [place] [address] [place] Protein [Mass/Vol] 6.4 g/dL Normal 6.3-8.0 [facility] Comment on above: Order Comment: Suzanne men Type: BLOOD SPECIMENOrdering Facility: [facility] Address: [address] [place], [place] [address] Performed By: #### 2 4323-8 ####CERVANT[facility] LABORATORYCLIA [id number] [place] [address] [place] Sodium [Moles/Vol] 136 mmol/L Normal 136-144 [facility] Comment on above: Order Comment: Naeemi men Type: BLOOD SPECIMENOrdering Facility: [facility] Address: [address] [place] [id number] Performed By: #### 2 4323-8 ####CERVANT[facility] LABORATORYCLIA [id number] [place] [id number] [facility] Urea nitrogen [Mass/Vol] 10 mg/dL Normal 7- [facility] Comment on above: Order Comment: Speci men Type: BLOOD SPECIMENOrdering Facility: [facility] Address: [address] [place] [address] [place], [place] [address] Performed By: #### 2 4323-8 ####CERVANT[facility] LABORATORYCLIA [id number] [place] [id number] [facility] ED NOTEon 09-18-2024 ED NOTE HNO ID: [id number] Author: MONE KING RN Service: ? Author Type: Registered Nurse Type: ED Notes Filed: 09/18/2024 22:14 Note Text: Pt report given to Zaria (NAWAF) [facility] ED NOTE HNO ID: [id number] Author: MONE KING RN Service: ? Author Type: Registered Nurse Type: ED Notes Filed: 09/18/2024 22:15 Note Text: IV attempted by this RN. Medic requested to bedside for ultrasound. [facility] ED NOTE HNO ID: [id number] Author: LIANNE FERNANDEZ, RN Service: ? Author Type: Registered Nurse Type: ED Notes Filed: 09/18/2024 20:22 Note Text: Bed: ED-15 Expected date: Expected time: Means of arrival: Comments: eric [facility] ED NOTE HNO ID: [id number] Author: LIANNE FERNANDEZ, RN Service: ? Author Type: Registered Nurse Type: ED Notes Filed: 09/18/2024 13:36 Note Text: Discharge instructions reviewed with patient via teachback. Pt verbalizes understanding. Pt awake and alert, respirations regular and unlabored. No further questions for this RN. Report given to [facility] [facility] ED NOTE HNO ID: [id number] Author: ZARIA ZAPATA RN Service: ? Author Type: Registered Nurse Type: ED Notes Filed: 09/18/2024 10:15 Note Text: Bed: ED-01 Expected date: Expected time: Means of arrival: [place] [facility] Comments: [facility] ED PROV NOTEon 09-18-2024 ED PROV NOTE HNO ID: [id number] Author: KRISTI POND DO Service: Emergency Medicine [...] Status Change Penicillins Hives Dioxicillin Promethazine Intolerance Tnbpjui-Zdt-Bnm Red* Myalgia Cheese Diarrhea, GI Upset Parmesan cheese and malagasy cheese, per patient Review of Systems Constitutional: [...] Left lower (more content not included)... Normal [facility] ED PROV NOTE HNO ID: [id number] Author: CLINTON GRAJEDA PA-C Service: ? Author Type: Physician Mainframe Systems Programmer Type: ED Provider Notes Filed: 09/18/2024 11:31 [...] Status Change Penicillins Hives Dioxicillin Promethazine Unknown Pedmxqk-Zcz-Ngy Red* Myalgia Cheese Diarrhea, GI Upset Parmesan cheese and malagasy cheese, per patient Review of Systems Constitutional: [...] prior sen (more content not included)... Normal [facility] PT panel Coag (PPP)on 2024 INR Coag (PPP) [Relative time] 2.3 {INR} High 0.9-1.3 [facility] Comment on above: Order Comment: Suzanne garcia Type: BLOOD SPECIMENOrdering Facility: [facility] Address: [address] [id number] Result Comment: Kaycee min K Antagonist (VKA) Therapeutic Range: INR 2 to 3 (Target INR of 2.5) Note: For patients treated with VKA drugs, such as warfarin, the [employer] 2012 Guideline recommends [...] Chest 2012, 141:7S-47S Roshni RA, et al. [facility] 2017, 70: 252-289 Performed By: #### 3 4528-0 ####[facility]ATORYCLIA [id number] [address] [place] PT Coag (PPP) [Time] 23.8 s High 9.7-13.0 [facility] Comment on above: Order Comment: Suzanne garcia Type: BLOOD SPECIMENOrdering Facility: [facility] Address: [address] [place] [address] Performed By: #### 3 4528-0 ####[facility] [id number] [address] [id number] [place] XR ANKLE 3V [...] tissue swelling of the left lower extremity. Membership Sales Representative: [employer] Transcribe Date/Time: Sep 18 2024 11:41P Dictated by : STEPHANE GRIMES MD This examination was interpreted and the report reviewed and electronically signed by: STEPHANE GRIMES MD on Sep 18 2024 11:44PM EST [id number] Normal [facility] XR HIP 3V PELV+ AP/LAT LTon 09-18-2024 [...] tissue swelling of the left lower extremity. Membership Sales Representative: [facility] Transcribe Date/Time: Sep 18 2024 11:41P Dictated by : STEPHANE GRIMES MD This examination was interpreted and the report reviewed and electronically signed by: STEPHANE GRIMES MD on Sep 18 2024 11:44PM EST [id number] [facility] XR KNEE 4V AP/LAT/OBLS LTon 09-18-2024 XR [...] effusion. Vascular calcifications. IMPRESSION: No acute abnormality Membership Sales Representative: [facility] Transcribe Date/Time: Sep 18 2024 10:47A Dictated by : WILBERT WALKER MD This examination was interpreted and the report reviewed and electronically signed by: WILBERT WALKER MD on Sep 18 2024 10:48AM EST [id number] [facility]YLWM ) RANDOLPH HUNTER ([id number]) 1950 F Date Time Provider Department 08/05/24 11:00 AM GILMER COTTON PSYLWM During your visit today, we recorded the following information about you: Gilmer Cotton, PhD 08/05/2024 12:29 PM Signed [facility] Behavioral Health Department Progress Note Randolph Hunter 08/05/2024 [id number] PROVIDER: Gilmer Cotton, PhD CPT Code: Time: [...] directed once a month. blood sugar diagnostic (BioMetric SolutionUCH VERIO TEST STRIPS) test strip Test blood [...] Psychiatric Medication Issues: see med record DIAGNOSIS: Frederick I: Depress (more content not included)... Normal [facility] ED Nursing Noteon 07-10-2024 ED Nursing Note Pt resting quietly i n bed with blanket over face. Respirations even and non labored. No coughing noted at this time. Await transport by [facility]. Normal [facility] ED Nursing Note Dr. Jha at bedside. Normal [facility] ED Nursing Noteon 07-09-[address] Jha to bedside . Pt given water. Normal [facility] ED Provider Noteon ED Provider Note [...] TABLET Place under the tongue. NYSTATIN (MYCOSTATIN) 010447 UNIT/GM POWDER Apply topically 2 times daily. [...] Resource Strain: Low Risk (01/02/2020) Received from [facility] Overall Financial Resource Strain (CARDIA) Difficulty of Paying Living Expenses: Not very hard Food Insecurity: Food Insecurity Present (01/02/2020) Received from [facility] Hunger Vital Sign Worried About Running Out of Food in the Last Year: Sometimes true Ran Out of Food in the Last Year: Never true Transportation Needs: Unmet Transportation Needs (01/02/2020) Received from [facility] (more content not included)... Normal [facility] XR Chest Single viewon 07-09 1. No acute consolidation. Report Dictated on Electronically Signed By: Velasquez Nova MD Electronically Signed Date/Time: 07/09/2024 11:45 PM EST [facility] RADIOLOGY [facility] Patient Name: RANDOLPH HUNTER : [...] change again noted in the thoracic spine. [facility] Velasquez Nova MD - 07/09/2024 Patient Name: [...] Electronically Signed Date/Time: 07/09/2024 11:45 PM EST [facility] Radiology Study observation (narrative) [facility] XR Chest Single viewOrdered By: Velasquez Nova on 07-09-2024 [facility] Work Phone: CNOVon 05-02-2024 CNOV Office Visit (PSYLWM ) DALERANDOLPH Abiodun ([id number]) 1950 F Date Time Provider Department 05/02/24 11:00 AM GILMER COTTON PSYLWM During your visit today, we recorded the following information about you: Gilmer Cotton, PhD 05/02/2024 12:11 PM Signed [facility] Behavioral Health Department Progress Note Randolph Hunter 05/02/2024 [id number] PROVIDER: Gilmer Cotton, PhD CPT Code: Time: [...] directed once a month. blood sugar diagnostic (BioMetric SolutionUCH VERIO TEST STRIPS) test strip Test blood [...] Issues: No change from previous appointment DIAGNOSIS: Frederick I: Depressive Disorder recurrent Morbidly Obese CP Frederick II : Deferred Frederick III : See medical history Frederick IV: Health (more content not included)... 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 blood sugar diagnostic (Dualog VERIO TEST STRIPS) test strip Test blood [...] this v (more content not included)... Normal [facility] PATINSon 02-10-2024 PATINS Ordered treatment co mpleted and patient is healed. Patient discharged without any issues. All questions answered. Call the clinic if your wound reopens or a new wound appears at [phone]. Edema/Swelling: Avoid standing for long periouds of [...] a day to promote wound healing Normal [facility] Progress Noteon 02-10-2024 Progress Note Assessments [...] Test Results/Process Orders 10 [] Staff telephones [facility], Nursing Homes/Clarify Orders 10 [] Routine Transfer [...] Points) Level 5 (160 or more Points) [facility] Progress Note Subjective Patient ID: Randolph Hunter [...] prn Pt agrees with plan . Normal [facility] CNOVon 01-29-2024 CNOV Office Visit (PSYLWM ) RANDOLPH HUNTER ([id number]) 1950 F Date Time Provider Department 01/29/24 11:00 AM GILMER COTTON PSYLWM During your visit today, we recorded the following information about you: Gilmer Cotton, PhD 01/29/2024 12:00 PM Signed [facility] Behavioral Health Department Progress Note Randolph Hunter 01/29/2024 [id number] PROVIDER: Gilmer Cotton, PhD CPT Code: Time: [...] directed once a month. blood sugar diagnostic (BioMetric SolutionUCH VERIO TEST STRIPS) test strip Test blood [...] Issues: No change from previous appointment DIAGNOSIS: Frederick I: Depressive Disorder recurrent Morbidly Obese CP Frederick II : Deferred Frederick III : See (more content not included)... 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 verbal Consent given by: patient Risks discussed? procedural risks discussed Immediately prior to the procedure a time out was called and the performing provider verified the correct patient, procedure, equipment, support teacher, and site/side marked as required. Debridement Details [...] Response to treatment: procedure was tolerated well [facility] PATINSon 01-27-2024 PATINS Follow-up Appointmen ts: Return Appointment in 1 week. Call [place] wound center at [phone], [facility] at [phone], or [facility] Wound center at [phone]. Edema/Swelling: Avoid standing for long periouds of [...] the wound and secure with tape. Normal [facility] No Panel Informationon 01-19 Isaac Chicas DO 01/20/2024 3:54 PM Debridement Wound/Incision 01/20/24 Pressure Injury Foot Left Performed by: Isaac Chicas DO Authorized by: Isaac Chicas, DO Consent Consent obtained? verbal Consent given by: patient Risks discussed? procedural risks discussed Immediately prior to the procedure a time out was called and the performing provider verified the correct patient, procedure, equipment, support teacher, and site/side marked as required. Debridement Details [...] Response to treatment: procedure was tolerated well [facility] PATINSon 01-20-2024 PATINS Follow-up Appointmen ts: Return Appointment in 1 week. Call [place] wound center at [phone], [facility] at [phone], or [facility] Wound center at [phone]. Edema/Swelling: Avoid standing for long periouds of [...] the wound and secure with tape. Normal [facility] Progress Noteon 01-20-2024 Progress Note [facility] [address] [place] [address] Loc: [phone] Wound Care Visit - New Patient Progress [...] ti,es a day, Disp: , Rfl: HYDROcodone-acetaminophen ([place]) 5-325 MG tablet, Take 1 tablet by [...] the tongue., Disp: , Rfl: nystatin (Mycostatin) 145615 UNIT/GM powder, Apply topically 2 times daily., [...] Consent given (more content not included)... Normal [facility] Progress Note Assessments Nursing Assessment/Reassessment Score [...] Test Results/Process Orders 10 [x] Staff telephones [facility], Nursing Homes/Clarify Orders 10 [] Routine Transfer [...] Points) Level 5 (160 or more Points) [facility] CNOVon 12-25-2023 CNOV Office Visit (PSYLWM ) RANDOLPH HUNTER ([id number]) 1950 F Date Time Provider Department 12/25/23 11:00 AM GILMER COTTON PSYLWM During your visit today, we recorded the following information about you: Gilmer Cotton, PhD 12/25/2023 11:56 AM Signed [facility] Behavioral Health Department Progress Note Randolph Hunter 12/25/2023 [id number] PROVIDER: Gilmer Cotton, PhD CPT Code: Time: [...] 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 daughter is a month old and [...] directed once a month. blood sugar diagnostic (Dualog VERIO TEST STRIPS) test strip Test blood [...] medications for (more content not included)... Normal [facility] ED Nursing Noteon 12-16-2023 ED Nursing Note Patient wheeled out ED for transport to residence. discharge instructions sent to facility with patient. No further questions. Respirations even and non labored. No acute distress. A&O x4. Gifty Cornell RN 12/16/23 0015 Normal [facility] BASIC METABOLIC PANELon 11-21 Anion gap [Moles/Vol] 4 mmol/L Normal 3-13 [facility] Comment on above: Performed By: #### L AB149, LAB15 ####Early Childhood Director: PING T[place]NSEND ([id number])[facility] ([facility])[address] [place] [address] Calcium [Mass/Vol] 8.7 mg/dL Normal 8.4-10.4 [facility] Comment on above: Performed By: #### L AB149, LAB15 ####Early Childhood Director: PING TOWNSEND ([id number])[facility] ([facility])[address] [place] [address] [place] Chloride [Moles/Vol] 99 mmol/L Normal 98-107 [facility] Comment on above: Performed By: #### L AB149, LAB15 ####Early Childhood Director: PING TOWNSEND ([id number])[facility] ([facility])[address] [place] [address] [place] CO2 [Moles/Vol] 32 mmol/L High 22-30 [facility] Comment on above: Performed By: #### L AB149, LAB15 ####Early Childhood Director: PING TOWNSEND ([id number])[facility] ([facility])[address] [place] [address] [place] Creatinine [Mass/Vol] 1.03 mg/dL Normal 0.52-1.04 [facility] Comment on above: Performed By: #### L AB149, LAB15 ####Early Childhood Director: PING TOWNSEND ([phone])[facility] ([facility])[address] [place] [address] [place] GLOMERULAR FILTRATION RATE ML/MIN/1.73 SQ M.PREDICTED 57.9 mL/min/1.73m*2 Low >60.0 [facility] Comment on above: Result Comment: Calc ulation based on the Chronic Kidney Disease Epidemiology Collaboration (CKD-EPI) equation refit without adjustment for race Performed By: #### L AB149, LAB15 ####Early Childhood Director: PING TOWNSEND ([id number])[facility] ([facility])[address] [place] [address] [place] Glucose [Mass/Vol] 104 mg/dL High 70-100 [facility] Comment on above: Performed By: #### L AB149, LAB15 ####Early Childhood Director: PING TOWNSEND ([phone])[facility] ([facility])[address] [place] [address] [place] Potassium [Moles/Vol] 4.5 mmol/L Normal 3.5-5.1 [facility] Comment on above: Performed By: #### L AB149, LAB15 ####Early Childhood Director: PING TOWNSEND ([id number])[facility] ([facility])[address] Sodium [Moles/Vol] 135 mmol/L Normal 135-145 [facility] Comment on above: Performed By: #### L AB149, LAB15 ####Early Childhood Director: PING TOWNSEND ([id number])[facility] ([facility])[address] [place] [address] Urea nitrogen [Mass/Vol] 12 mg/dL Normal 7-17 [facility] Comment on above: Performed By: #### L AB149, LAB15 ####Early Childhood Director: IPNG TOWNSEND ([id number])[facility] ([facility])[address] [place] [address] BLOOD CULTUREon 12-15-2023 Bacteria identified Cx Nom (Bld) BLOOD CULTURE Reference No growth at 5 days ORDER COMMENTS: Blood Collection Site: Right Antecubital [ S = SUSCEPTIBLE R = RESISTANT I = INTERMEDIATE S-DD = Susceptible-dose dependent NS = Non-susceptible NO = No Interpretation ] Normal [facility] Comment on above: Performed By: #### L AB462 ####Early Childhood Director: PING TOWNSEND ([phone])[facility] ([facility])[address] [place] [address] Bacteria identified Cx Nom (Bld) BLOOD CULTURE Reference No growth at 5 days ORDER COMMENTS: Blood Collection Site: Left Antecubital [ S = SUSCEPTIBLE R = RESISTANT I = INTERMEDIATE S-DD = Susceptible-dose dependent NS = Non-susceptible NO = No Interpretation ] Normal [facility] Comment on above: Performed By: #### L AB462 ####Early Childhood Director: PING TOWNSNED ([id number])[facility] ([facility])[address] [place] [address] Basic metabolic 1998 panelon 12-15-2023 Anion gap [Moles/Vol] 4 mmol/L 3 - 13 mmol/L [facility] Calcium [Mass/Vol] 8.7 mg/dL 8.4 - 10. 4 mg/dL [facility] Chloride [Moles/Vol] 99 mmol/L 98 - 107 mmol/L [facility] CO2 [Moles/Vol] 32 mmol/L High 22 - 30 mmol/L [facility] Creatinine [Mass/Vol] 1.03 mg/dL 0.52 - 1.04 mg/dL [facility] GFR/1.73 sq M.predicted MDRD (S/P/Bld) [Vol rate/Area] 57.9 mL/min/{1.73_m2} Low - PINF [facility] Comment on above: Calculation based on the Chronic Kidney Disease Epidemiology Collaboration (CKD-EPI) equation refit without adjustment for race Glucose [Mass/Vol] 104 mg/dL High 70 - 100 mg/dL [facility] Potassium [Moles/Vol] 4.5 mmol/L 3.5 - 5.1 mmol/L [facility] Sodium [Moles/Vol] 135 mmol/L 135 - 145 mmol/L [facility] Urea nitrogen [Mass/Vol] 12 mg/dL 7 - 17 mg/dL [facility] C-REACTIVE PROTEINon 024 CRP [Mass/Vol] 57.4 mg/L High <10.0 [facility] Comment on above: Performed By: #### L AB149, LAB15 ####Early Childhood Director: PING TOWNSEND ([id number])[facility] ([facility])[address] [place] [address] CBC W Auto Differential pane l (Bld)on 12-15-2023 Basophils (Bld) [#/Vol] 0.0 10*3/uL 0.0 - 0.2 10*3/uL [facility] Basophils/100 WBC (Bld) 0.2 % 0.0 - 2.0 % [facility] Eosinophils (Bld) [#/Vol] 0.1 10*3/uL 0.0 - 0.5 10*3/uL [facility] Eosinophils/100 WBC (Bld) 0.7 % 0.0 - 6.0 % [facility] Erythrocyte distribution width (RBC) [Ratio] 12.6 % 11.5 - 15.0 % [facility] Hematocrit (Bld) [Volume fraction] 38.3 % 35.0 - 47.0 % [facility] Hemoglobin (Bld) [Mass/Vol] 13.1 g/dL 11.7 - 16.0 g/dL [facility] Immature granulocytes (Bld) [#/Vol] 0.0 10*3/uL NINF - 0.1 10*3/uL [facility] Immature granulocytes/100 WBC (Bld) 0.2 % 0.0 - 2.0 % [facility] Interpretation and review of laboratory results Abnormal [facility] IPF 3 [facility] Lymphocytes (Bld) [#/Vol] 0.9 10*3/uL Low 1.0 - 4.3 10*3/uL [facility] Lymphocytes/100 WBC (Bld) 11.2 % Low 15.0 - 45.0 % [facility] MCH (RBC) [Entitic mass] 31.2 pg 26.0 - 34.0 pg [facility] MCHC (RBC) [Mass/Vol] 34.2 % 30.5 - 36.0 % [facility] MCV (RBC) [Entitic vol] 91.2 fL 77.0 - 99.0 fL [facility] Monocytes (Bld) [#/Vol] 0.5 10*3/uL 0.0 - 0.9 10*3/uL [facility] Monocytes/100 WBC (Bld) 5.6 % 5.0 - 13.0 % [facility] Neutrophils (Bld) [#/Vol] 6.8 10*3/uL 1.8 - 7.5 10*3/uL [facility] Neutrophils/100 WBC (Bld) 82.1 % High 38.0 - 82.0 % [facility] Nucleated RBC/100 WBC (Bld) [Ratio] 0.0 % [facility] Platelet mean volume (Bld) [Entitic vol] 10.1 fL 9.0 - 12.7 fL [facility] Platelets (Bld) [#/Vol] 149 10*3/uL 140 - 440 10*3/uL [facility] RBC (Bld) [#/Vol] 4.20 10*6/uL 3.80 - 5.20 10*6/uL [facility] WBC (Bld) [#/Vol] 8.3 10*3/uL 3.6 - 10.7 10*3/uL [facility] CBC WITH AUTO DIFFERENTIALon 12-15-2023 Basophils (Bld) [#/Vol] 0.0 10*3/uL Normal 0.0-0.2 [facility] Comment on above: Performed By: #### L AB322, [id number] ####Early Childhood Director: PING TOWNSEND ([id number])[facility] ([facility])[address] [place] [address] [place] Basophils/100 WBC (Bld) 0.2 % Normal 0.0-2.0 [facility] Comment on above: Performed By: #### Abiodun AB322, [id number] ####Early Childhood Director: PING TOWNSEND ([id number])[facility])[address] [place] [address] [place] Eosinophils (Bld) [#/Vol] 0.1 10*3/uL Normal 0.0-0.5 [facility] Comment on above: Performed By: #### Abiodun AB322, [id number] ####Early Childhood Director: PING TOWNSEND ([id number])[facility])[address] [place] [address] [place] Eosinophils/100 WBC (Bld) 0.7 % Normal 0.0-6.0 [facility] Comment on above: Performed By: #### L AB322, [id number] ####Early Childhood Director: PING TOWNSEND ([id number])[facility])[address] [place] [address] [place] Erythrocyte distribution width (RBC) [Ratio] 12.6 % Normal 11.5-15.0 [facility] Comment on above: Performed By: #### L [id number], [id number] ####Early Childhood Director: PING TOWNSEND ([id number])[facility] ([facility])[address] [place] [address] Hematocrit (Bld) [Volume fraction] 38.3 % Normal 35.0-47.0 [facility] Comment on above: Performed By: #### L AB322, [id number] ####Early Childhood Director: PING TOWNSEND ([id number])[facility] ([facility])[address] [place] [address] Hemoglobin (Bld) [Mass/Vol] 13.1 g/dL Normal 11.7-16.0 [facility] Comment on above: Performed By: #### Abiodun AB322, [id number] ####Early Childhood Director: PING TOWNSEND ([id number])[facility] ([facility])[address] [place] [address] IMMATURE GRANS % 0.2 % Normal 0.0-2.0 [facility] Comment on above: Performed By: #### Abiodun AB322, [id number] ####Early Childhood Director: PING TOWNSEND ([id number])[facility] ([facility])[address] [place] [address] IMMATURE GRANS ABSOLUTE 0.0 10*3/uL Normal <0.1 [facility] Comment on above: Performed By: #### Abiodun AB322, [id number] ####Early Childhood Director: PING TOWNSEND ([id number])[facility] ([facility])[address] [place] [address] [place] IPF 3 Normal [facility] Comment on above: Performed By: #### L AB322, [id number] ####Early Childhood Director: PING TOWNSEND ([id number])[facility] ([facility])[address] [place] [address] Lymphocytes (Bld) [#/Vol] 0.9 10*3/uL Low 1.0-4.3 [facility] Comment on above: Performed By: #### Abiodun AB322, [id number] ####Early Childhood Director: PING TOWNSEND ([id number])[facility] ([facility])[address] [place] [address] [place] Lymphocytes/100 WBC (Bld) 11.2 % Low 15.0-45.0 [facility] Comment on above: Performed By: #### Abiodun AB322, [id number] ####Early Childhood Director: PING TOWNSEND ([id number])[facility] ([facility])[address] [place] [address] MCH (RBC) [Entitic mass] 31.2 pg Normal 26.0-34.0 [facility] Comment on above: Performed By: #### Abiodun AB322, [id number] ####Early Childhood Director: PING TOWNSEND ([id number])[facility] ([facility])[address] [place] [address] MCHC 34.2 % Normal 30.5-36.0 [facility] Comment on above: Performed By: #### Abiodun AB322, [id number] ####Early Childhood Director: PING TOWNSEND ([id number])[facility] ([facility])[address] [place] [address] MCV (RBC) [Entitic vol] 91.2 fL Normal 77.0-99.0 [facility] Comment on above: Performed By: #### Abiodun AB322, [id number] ####Early Childhood Director: PING TOWNSEND ([id number])[facility] ([facility])[address] [place] [address] Monocytes (Bld) [#/Vol] 0.5 10*3/uL Normal 0.0-0.9 [facility] Comment on above: Performed By: #### L AB322, [id number] ####Early Childhood Director: PING TOWNSEDN ([id number])[facility] HOSPITALMaryellen CHATTERJEE RITTMAN (SWRLAB)[address] [place] [address] [place] Monocytes/100 WBC (Bld) 5.6 % Normal 5.0-13.0 [facility] Comment on above: Performed By: #### L [id number], [id number] ####Early Childhood Director: [place] ([phone])FIONA CHATTERJEE RITTMAN (SWRLAB)[address] NEUTROPHILS ABSOLUTE 6.8 10*3/uL Normal 1.8-7.5 [facility] Comment on above: Performed By: #### Abiodun [id number], [id number] ####Early Childhood Director: PING [place] ([id number])[facility]OSPITALMaryellen CHATTERJEE RITTMAN (SWRLAB)[address] [place] [address] [place] Neutrophils/100 WBC (Bld) 82.1 % High 38.0-82.0 [facility] Comment on above: Performed By: #### Abiodun [id number], [id number] ####Early Childhood Director: PING [place] ([phone])[facility]OSPITALMaryellen CHATTERJEE RITTMAN (SWRLAB)[address] [place] [address] NRBC 0.0 /100 WBCs Normal 0.0-2.0 [facility] Comment on above: Performed By: #### Abiodun [id number], [id number] ####Early Childhood Director: P[place] ([phone])FIONA CHATTERJEE RITTMAN (SWRLAB)[address] [place] [address] [place] Platelet mean volume (Bld) [Entitic vol] 10.1 fL Normal 9.0-12.7 [facility] Comment on above: Performed By: #### L [id number], [id number] ####Early Childhood Director: PING [place]NSEND ([phone])[facility]OSPITALMaryellen CHATTERJEE RITTMAN (SWRLAB)[address] [place] [address] [place] Platelets (Bld) [#/Vol] 149 10*3/uL Normal 140-440 [facility] Comment on above: Performed By: #### L [id number], [id number] ####Early Childhood Director: PING T[place]END ([phone])SUMMMaryellen CHATTERJEE RITTMAN (SWRLAB)[address] RBC (Bld) [#/Vol] 4.20 10*6/uL Normal 3.80-5.20 [facility] Comment on above: Performed By: #### L [id number], [id number] ####Early Childhood Director: PING T[place]NSEND ([phone])[facility] CODYAN (SWRLAB)[address] WBC (Bld) [#/Vol] 8.3 10*3/uL Normal 3.6-10.7 [facility] Comment on above: Performed By: #### L [id number], [id number] ####Early Childhood Director: PING [place] ([phone])[facility]ITALERIC PABLOAN (SWRLAB)[address] ED Nursing Noteon 12-15-2023 ED Nursing Note Patient to room 7 vi a [facility] for c/o a left foot ulcer, lower leg erythema, and a headache. Patient reports she has had her foot ulcer for a couple of months. V/S obtained, call light within reach. Normal [facility] ED Provider Noteon ED Provider Note [...] Resource Strain: Low Risk (01/02/2020) Received from [facility] Overall Financial Resource Strain (CARDIA) Difficulty of Paying Living Expenses: Not very hard Food Insecurity: Food Insecurity Present (01/02/2020) Received from [facility] Hunger Vital Sign Worried About Running Out of Food in the Last Year: Sometimes true Ran Out of Food in the Last Year: Never true Transportation Needs: Unmet Transportation Needs (01/02/2020) Received from [facility] PRAPARE - Transportation Lack of Transportation (Medical): Yes Lack of Transportation (Non-Medical): Yes Physical Activity: Inactive (01/02/2020) Received from [facility] Exercise Vital Sign Days of Exercise per Week: 0 days Minutes of Exercise per Session: 0 min Stress: Stress Concern Present (01/02/2020) Received from [facility] [employer] [place] [facility] [employer] [facility] - Occupational Stress Questionnaire Feeling of Stress : Rather much Social Connections: Moderately Isolated (01/02/2020) Received from [facility] Social Connection and Isolatio (more content not included)... Normal [facility] ED Provider Note This patient was [...] about putting in her observation unit at [facility] for 24 hours of IV antibiotics versus discharging home with oral antibiotics. After shared decision-making she elected to go home. I do think that this is a safe plan. She lives in assisted living and they can help her with continuing to monitor her wound. Gave her strict return precautions and discharged in stable condition. Karen Gallardo MD 12/15/231935 Normal [facility] ESR (Bld) [Velocity]Ordered By: Lexi Arce on 12-15-2023 Interpretation and review of laboratory results Normal [facility] Laboratory - Chemistry and C hemistry - challengeon 12-15-2023 CRP [Mass/Vol] 57.4 mg/L High NINF - 10.0 mg/L [facility] Laboratory - Hematology and Cell countsOrdered By: Lexi Arce on 12-15-2023 ESR (Bld) [Velocity] 16 mm/h [facility] No Panel Informationon 12-14 Interpretation and review of laboratory results Abnormal [facility] SEDIMENTATION RATE, AUTOMATE Don 12-15-2023 SEDIMENTATION RATE, ERYTHROCYTE 16 mm/hr Normal 0-20 [facility] Comment on above: Performed By: #### L [id number], [id number] ####Early Childhood Director: PING TOWNSEND ([phone])[facility] ([address] XR Foot - left 3 Viewson No obvious acute osteomyelitis. Report Dictated on Electronically Signed By: Gloria Darnell MD Electronically Signed Date/Time: 12/15/2023 7:01 PM [facility]UN[facility] 1950 [id number] Exam Date/Time: 12/15/2023 18:59 Procedure: XR FOOT [...] of the forefoot. Diffuse vascular calcification present. [facility] Gloria Darnell MD - 12/15/2023 Patient Name: RANDOLPH HUNTER : 1950 [id number] Exam Date/Time: 12/15/2023 18:59 Procedure: XR FOOT [...] Electronically Signed Date/Time: 12/15/2023 7:01 PM EDT [facility] Radiology Study observation (narrative) [facility] XR Foot - left 3 ViewsOrdere d By: Gloria Darnell on 12-15-2023 [facility] Work Phone: ED Nursing Noteon 07-20-2023 ED Nursing Note Physician's arrived; pt removed from urine collection device and pts own attends placed on pt per her request. Pts belongings in bag at bedside. Report to Physician's. Veronika Bae RN 07/20/23 2258 Normal [facility] ED Nursing Note Physician's Ambulanc e arrived with an ambulette/wheelchair van. Chasidy MCCRACKEN spoke with Physician's to inform them that the pt is non ambulatory and needed a stretcher. Physician's states they will have a stretcher here "within the hour." Veronika Bae RN 07/20/23 3644 Normal [facility] ED Nursing Note Patient pressed call light to request pain medication. States pain is in shoulders and down the back from laying on the tables. notified Gifty Cornell RN 07/20/23 0044 Normal [facility] CT CERVICAL SPINE WO IV CONT DUANETon 07-19-2023 CT CERVICAL SPINE WO IV CONTRAST Patient Name: RANDOLPH HUNTER : 1950 Exam Date/Time: 07/19/2023 22:56 Procedure: CT CERVICAL SPINE WO IV CONTRAST Ordering Provider: ANNA DOUGLAS Reason For Exam: cervical spine pain after fall. fails [place] CT CERVICAL SPINE: CLINICAL INDICATION: cervical spine pain after fall. fails [place] TECHNIQUE: Transaxial sequence through the cervical spine. [...] Electronically Signed Date/Time: 07/19/2023 11:18 PM EST Normal [facility] CT Cervical spine WO contras ton 07-19-2023 No acute cervical sp ine fracture. Multilevel cervical spondylosis. Report Dictated on Electronically Signed By: Albina Newton MD Electronically Signed Date/Time: 07/19/2023 11:18 PM EST [facility] Patient Name: RANDOLPH HUNTER : 1950 Exam Date/Time: 07/19/2023 22:56 Procedure: CT CERVICAL SPINE WO IV CONTRAST Ordering Provider: ANNA DOUGLAS Reason For Exam: cervical spine pain after fall. fails [place] CT CERVICAL SPINE: CLINICAL INDICATION: cervical spine pain after fall. fails [place] TECHNIQUE: Transaxial sequence through the cervical spine. [...] submandibular gland. Other: Lung apices are unremarkable. [facility] Albina Newton M D - 07/19/2023 [facility] Name: RANDOLPH HUNTER : 1950 [id number] Exam Date/Time: 07/19/2023 22:56 Procedure: CT CERVICAL SPINE WO IV CONTRAST Ordering Provider: ANNA DOUGLAS Reason For Exam: cervical spine pain after fall. fails [place] CT CERVICAL SPINE: CLINICAL INDICATION: cervical spine pain after fall. fails [place] TECHNIQUE: Transaxial sequence through the cervical spine. [...] Electronically Signed Date/Time: 07/19/2023 11:18 PM EST [facility] Radiology Study observation (narrative) [facility] CT Cervical spine WO contras tOrdered By: Albina Newton on 07-19-2023 [facility] Work Phone: CT HEAD WO IV CONTRASTon [...] Signed Date/Time: 07/19/2023 11:02 PM EST Normal [facility] CT Head WO contraston 2023 No acute intracrania l abnormality. Mild diffuse cortical volume loss. Report Dictated on Electronically Signed By: Albina Newton MD Electronically Signed Date/Time: 07/19/2023 11:02 PM [facility] Patient Name: RANDOLPH HUNTER : [...] Orbits: Normal Calvarium and skull base: Normal [facility] Albina Newton M D - [...] Electronically Signed Date/Time: 07/19/2023 11:02 PM EST [facility] Radiology Study observation (narrative) [facility] CT Head WO contrastOrdered B y: Albina Newton on 07-19-2023 [facility] Work Phone: CT PELVIS WO IV CONTRASTon [...] MD Electronically Signed Date/Time: 07/19/2023 11:27 PM [facility] CT Pelvis WO contraston 06-23 No acute fracture. Nonacute findings, as above. Report Dictated on Electronically Signed By: Albina Newton MD Electronically Signed Date/Time: 07/19/2023 11:27 PM [facility] Patient Name: RANDOLPH HUNTER : 1950 [...] No sizable hematoma in the soft tissues. [facility] Albina Newton M D - 07/19/2023 Patient [...] Electronically Signed Date/Time: 07/19/2023 11:27 PM EST [facility] Radiology Study observation (narrative) [facility] CT Pelvis WO contrastOrdered By: Albina Newton on 07-19-2023 [facility] Work Phone: ED Nursing Noteon 07-19-2023 ED Nursing Note Report given to Shubham lopes RN & Chasidy MCCRACKEN. Patient still in radiology. Pia Caraballo RN 07/19/23 7500 Normal [facility] ED Nursing Note Dispo per imaging :) Chasidy Fernandez RN 07/19/23 4909 Normal [facility] ED Nursing Note Pt placed up for dis charge. No discharge paperwork complete at this time. Once orders are complete and discharge paperwork complete by ER DR Pt will be discharged. Chasidy Fernandez RN 07/19/23 5220 Normal [facility] ED Nursing Note This RN requested or ders from ER . Chasidy Fernandez RN 07/19/232025 Normal [facility] ED Nursing Note Patient is here for right hip pain. She was transferring to the toilet when she fell. She resides at [address] She currently is working with a physical therapist and is in a wheelchair. Patient hooked up to [employer] due to incontinence. She also has right knee bruising that is from her repeatedly hitting it on her wheelchair. She denies hitting her head or neck during fall. She is on coumadin. Call light within reach. [facility] ED Provider Noteon ED Provider Note EMERGENCY [...] No family history. She lives in a [facility] facility and is on Coumadin as she [...] Source Patient (more content not included)... Normal [facility] No Panel Informationon 07-19 1. Right knee arthro plasty in adequate alignment 2. Unremarkable right hip 3. Osteoarthritis of the left knee Report Dictated on Electronically Signed By: Phan Sepulveda MD Electronically Signed Date/Time: 07/19/2023 11:53 PM EST [employer] [facility] No Panel InformationOrdered By: Phan Sepulveda on 07-19-2023 [facility] Work Phone: XR Femur - right 2 Viewson 0 07-19-2023 [facility] Name: RANDOLPH HUNTER : 1950 [id number] Exam Date/Time: 07/19/2023 23:49 Procedure: XR FEMUR [...] calcifications as well as the popliteal fossa. [facility] [employer] [facility] Phan Sepulveda MD - 07/19/2023 Patient Name: [...] Electronically Signed Date/Time: 07/19/2023 11:53 PM EST [facility] Radiology Study observation (narrative) [facility] XR Knee - left 3 Viewson Patient [...] calcifications as well as the popliteal fossa. [facility] Phan Sepulveda MD - 07/19/2023 [...] Electronically Signed Date/Time: 07/19/2023 11:53 PM EST [facility] Radiology Study observation (narrative) [facility] XR Knee - right 3 Viewson Patient [...] calcifications as well as the popliteal fossa. [facility] Phan Sepulveda MD - 07/19/2023 Patient Name: RANDOLPH HUNTER : 1950 [id number] Exam Date/Time: 07/19/2023 23:49 Procedure: XR KNEE [...] Electronically Signed Date/Time: 07/19/2023 11:53 PM EST [facility] Radiology Study observation (narrative) [facility] ECG 12-LEADon 09-07-2022 ECG 12-LEAD IMPRESSION: Sinus rhythm Borderline left axis deviation Probable lateral infarct, old Abnrm R prog, consider ASMI or lead placement Electronically Signed On 09-07-2022 11:08:52 EDT by Sai Kelly [facility] ABO and Rh group Confirm Nom (Bld)on 09-06-2022 ABO group Nom (Bld) A [facility] D Ag Ql (RBC) Negative [facility] Basic metabolic 1998 panelon 09-06-2022 Anion gap [Moles/Vol] 5 mmol/L 3 - 13 mmol/L [facility] Calcium [Mass/Vol] 9.2 mg/dL 8.4 - 10. 4 mg/dL [facility] Chloride [Moles/Vol] 104 mmol/L 98 - 107 mmol/L [facility] CO2 [Moles/Vol] 30 mmol/L 22 - 30 mmol/L [facility] Creatinine [Mass/Vol] 0.86 mg/dL 0.52 - 1.04 mg/dL [facility] GFR/1.73 sq M.predicted MDRD (S/P/Bld) [Vol rate/Area] 72.3 mL/min/{1.73_m2} - PINF [facility] Comment on above: Calculation based on the Chronic Kidney Disease Epidemiology Collaboration (CKD-EPI) equation refit without adjustment for race Glucose [Mass/Vol] 144 mg/dL High 70 - 100 mg/dL [facility] Interpretation and review of laboratory results Abnormal [facility] Potassium [Moles/Vol] 5.4 mmol/L High 3.5 - 5.1 mmol/L [facility] Sodium [Moles/Vol] 139 mmol/L 135 - 145 mmol/L [facility] Urea nitrogen [Mass/Vol] 26 mg/dL High 7 - 17 mg/dL [facility] Slightly Hemolyzed. Interpret Potassium with caution. [facility] Blood type and Crossmatch lynda alvarengal (Bld)on 09-06-2022 ABO group Nom (Bld) A [facility] Blood group antibody screen GEL Ql Negative [facility] D Ag Ql (RBC) Negative [facility] CBC W Auto Differential pane l (Bld)on 09-06-2022 Basophils (Bld) [#/Vol] 0.0 10*3/uL 0.0 - 0.2 10*3/uL [facility] Basophils/100 WBC (Bld) 0.5 % 0.0 - 2.0 % [facility] Eosinophils (Bld) [#/Vol] 0.2 10*3/uL 0.0 - 0.5 10*3/uL [facility] Eosinophils/100 WBC (Bld) 3.3 % 1.0 - 6.0 % [facility] Erythrocyte distribution width (RBC) [Ratio] 14.5 % 11.5 - 14.5 % [facility] Hematocrit (Bld) [Volume fraction] 40.1 % 35.0 - 47.0 % [facility] Hemoglobin (Bld) [Mass/Vol] 12.9 g/dL 11.7 - 16.0 g/dL [facility] Interpretation and review of laboratory results Normal [facility] Lymphocytes (Bld) [#/Vol] 1.6 10*3/uL 1.0 - 4.3 10*3/uL [facility] Lymphocytes/100 WBC (Bld) 24.7 % 20.0 - 40.0 % [facility] MCH (RBC) [Entitic mass] 30.6 pg 26.0 - 34.0 pg [facility] MCHC (RBC) [Mass/Vol] 32.2 % 32.0 - 36.0 % [facility] MCV (RBC) [Entitic vol] 95.2 fL 80.0 - 98.0 fL [facility] Monocytes (Bld) [#/Vol] 0.5 10*3/uL 0.0 - 0.8 10*3/uL [facility] Monocytes/100 WBC (Bld) 7.9 % 2.0 - 10.0 % [facility] Neutrophils (Bld) [#/Vol] 4.1 10*3/uL 1.8 - 7.0 10*3/uL [facility] Neutrophils/100 WBC (Bld) 63.6 % 40.0 - 80.0 % [facility] Nucleated RBC/100 WBC (Bld) [Ratio] 0.1 % [facility] Platelet mean volume (Bld) [Entitic vol] 8.7 fL 7.4 - 12.4 fL [facility] Platelets (Bld) [#/Vol] 150 10*3/uL 140 - 440 10*3/uL [facility] RBC (Bld) [#/Vol] 4.21 10*6/uL 3.8 - 5.20 10*6/uL [facility] WBC (Bld) [#/Vol] 6.4 10*3/uL 3.6 - 10.7 10*3/uL [facility] CT CERVICAL SPINE WO IV CONT Teresa 09-06-2022 CT CERVICAL SPINE WO IV CONTRAST [...] Electronically Signed Date/Time: 09/06/2022 2:24 AM EDT [facility] CT Cervical spine WO contras ton 09-06-2022 No cervical spine fr acture. Report Dictated on Electronically Signed By: Tiago Charles Electronically Signed Date/Time: 09/06/2022 2:24 AM [facility] Patient Name: [facility]ANIEL DIAZ ECHO : 1950 [id number] Exam Date/Time: 09/06/2022 02:11 Procedure: CT CERVICAL [...] soft tissues and lung apices are unremarkable. [facility] Tiago Charles MD - Patient [...] Electronically Signed Date/Time: 09/06/2022 2:24 AM EDT [facility] CT HEAD WO IV CONTRASTon CT [...] Signed Date/Time: 09/06/2022 8:39 AM EDT Normal [facility] CT HEAD WO IV CONTRAST Patient Name: PATSY JUAN : 1950 [id number] Exam Date/Time: 09/06/2022 02:11 Procedure: CT HEAD [...] Signed Date/Time: 09/06/2022 2:16 AM EDT Normal [facility] CT Head WO contraston [address] evidence of ac radhika intracranial abnormality, other than mild acute sphenoid sinusitis. Report Dictated on Electronically Signed By: Gloria Darnell Electronically Signed Date/Time: 09/06/2022 8:39 AM EDT [facility] Patient Name: DANIEL DIAZ ECHO : 1950 Exam Date/Time: 09/06/2022 08:26 [...] the distal vertebral arteries is also noted. [facility] Gloria Darnell MD - 09/06/2022 Patient Name: [...] Electronically Signed Date/Time: 09/06/2022 8:39 AM EDT [facility] Radiology Study observation (narrative) [facility] No acute intracrania l hemorrhage or mass effect. Report Dictated on Electronically Signed By: Tiago Charles Electronically Signed Date/Time: 09/06/2022 2:16 AM EDT [facility] Patient Name: PATSY MCFARLANE : 1950 [...] cells are well aerated. Calvarium is unremarkable. [facility] Tiago Charles MD - Patient Name: PATSY JUAN : 1950 [facility]#: [id number] Exam Date/Time: 09/06/2022 02:11 Procedure: CT HEAD [...] Electronically Signed Date/Time: 09/06/2022 2:16 AM EDT [facility] CT Head WO contrastOrdered B y: Gloria Darnell on 09-06-2022 [facility] Work Phone: ED Nursing Noteon 09-06-2022 ED Nursing Note RN called back from Residence for report after patient left. This RN updated RN. No questions or concerns Lucy Jones RN 09/06/22 1115 Normal [facility] ED Nursing Note This RN attempted re port at [facility] for patient. RN's busy, special education secretary took RN name and number to return call for report if wanted. Lucy Jones RN 09/06/22 1018 Normal [facility] ED Nursing Note DM ETA 20-30 min (10 20-1030) Lucy Jones RN 09/06/22 0953 Normal [facility] ED Nursing Note Patient resting with eyes closed. Respirations even and unlabored. RN called about work order for call light / panel. Will be there soon to fix. Lucy Jones RN 09/06/22 0944 [facility] ED Nursing Note Pt back in room Lucy Jones RN 09/06/22 0832 [facility] ED Nursing Note Pt at CT Lucy Jones RN 09/06/22 0826 [facility] ED Nursing Note Patient yelling in r oom, due to call light not working in wall. Patient aware, patient door and curtain open. RN went in at this time. Patient wanted to check to see if she had BM. RN also made sure purewick in good position. RN will get vitals and look at orders at this time Lucy Jones RN 09/06/22 0739 [facility] ED Nursing Note Pt to x-ray in stabl e condition. Bárbara Hogan RN 09/06/22225 [facility] ED Nursing Note Report of to bárbara Younger RN 09/06/22220 [facility] ED Nursing Note Bed: 23 Expected date: Expected time: Means of arrival: Comments: SX TEAM Aaron Wallace RN 09/06/22220 [facility] ED Provider Noteon ED Provider Note Emergency Department Encounter Location: [facility] EMERGENCY DEPT Patient: Patsy Juan : 1950 [...] 445 ms QTC Interval 457 ms P Frederick 49 degrees QRS Frederick -29 degrees T Wave [place] 11 degrees [place] Interval [address] head wo IV [...] Result Upper pelvis is excluded from the [id number]-in-ynsb. No fracture or dislocation of the imaged [...] female whose (more content not included)... Normal [facility] ED Provider Note Emergency Department Encounter Location: [facility] EMERGENCY DEPT Patient: Patsy Juan : 1950 [...] 445 ms QTC Interval 457 ms P Frederick 49 degrees QRS Frederick -29 degrees T Wave [place] 11 degrees [place] Interval 149 ms XR shoulder 2+ views [...] Result Upper pelvis is excluded from the [id number]-nr-wjog. No fracture or dislocation of the imaged [...] Final Impression 1. (more content not included)... Normal [facility] ED Provider Note [facility] EMERGENCY DEPT EMERGENCY DEPARTMENT ENCOUNTER Pt Name: [...] A Ant (more content not included)... Normal [facility] Ethanol (Bld) [Mass/Vol]on 0 09-06-2022 Ethanol [Mass/Vol] g/dL 0.000 - 0.010 g/dL [facility] Laboratory - Chemistry and C hemistry - challengeon 09-06-2022 Troponin I.cardiac [Mass/Vol] ng/mL 0.000 - 0.034 ng/mL [facility] Magnesium [Mass/Vol] 1.8 mg/dL 1.6 - 2.3 mg/dL [facility] Lactate [Moles/Vol] 1.4 mmol/L 0.7 - 2. 0 mmol/L [facility] - Coagulationon 0 09-06-2022 aPTT Coag (PPP) [Time] 33.8 s High 20.0 - 30.5 s [facility] INR Coag (PPP) [Relative time] 1.8 {INR} High 0.9 - 1.1 [facility] Comment on above: Recommended Anticoag ulant [...] 18.5 s High 9.0 - 12.0 s [facility] - Drug toxicology Ordered By: Harper Estes on 09-06-2022 Amphetamines Screen method >1000 ng/mL Ql (U) Negative [facility] Barbiturates Screen method >200 ng/mL Ql (U) Negative [facility] Benzodiazepines Ql (U) Negative [facility] Methadone Screen Ql (U) Negative [facility] Opiates Screen Ql (U) Positive [facility] oxyCODONE Ql (U) Negative [facility] Phencyclidine Ql (U) Negative [facility] Magnesium [Mass/Vol]on 09-06 .01 [facility] No Panel InformationOrdered By: Harper Estes on 09-06-2022 COCAINE METAB. SCREEN Negative [facility] The expected value f or all [...] is needed, request confirmation under separate order. [employer] No Panel Informationon 09-06 Interpretation and review of laboratory results Normal [facility] Interpretation and review of laboratory results Normal [facility] Interpretation and review of laboratory results Abnormal [facility] Radiology Study observation (narrative) [facility] Phosphate [Moles/Vol]on 08-20 Phosphate [Mass/Vol] 3.9 mg/dL 2.5 - 4.5 mg/dL [facility] Slightly Hemolyzed. Interpret Phosphorus with caution. [facility] Progress Noteon 09-06-2022 Progress Note Department of Trauma / Critical Care Tertiary Survey Date of Trauma: 09/06/2022 1:36 AM MARINAELA/HPI: 72 y.o. female status post fall from standing. The incident happened around 0120 on 09/06/[address] [facility]. When the event happened the [...] identified. There (more content not included)... Normal [facility] Troponin I.cardiac [Mass/Vol ]on 09-06-2022 Interpretation and review of laboratory results Normal [facility] Patients with high l evels of Biotin oral intake (ie >5 mg/day) may have falsely decreased Troponin levels. [facility] XR Chest Single viewon 09-06 No focal consolidati on or pulmonary edema. Report Dictated on Electronically Signed By: Tiago Charles Electronically Signed Date/Time: 09/06/2022 2:12 AM EDT [facility] Patient Name: PATSY MCFARLANE : 1950 Exam Date/Time: 09/06/2022 02:06 Procedure: XR CHEST 1 VIEW Ordering Provider: HUTSON RICHARD Reason For Exam: TRAUMA PORTABLE CHEST CLINICAL INDICATION: Pain, trauma TECHNIQUE: Portable AP COMPARISON: None FINDINGS: No focal consolidation or pulmonary edema. No pleural effusions or pneumothorax. The cardiac and mediastinal silhouettes are normal. Degenerative change of the thoracic spine is noted. [facility] Tiago Charles MD - Patient Name: DRAKE ECHO : 1950 Exam Date/Time: 09/06/2022 02:06 [...] Electronically Signed Date/Time: 09/06/2022 2:12 AM EDT [facility] Radiology Study observation (narrative) [employer] XR Chest Single viewOrdered By: Tiago Charles on 09-06-2022 [employer] Work Phone: XR Pelvis 1 or 2 Viewson Upper pelvis is excl uded from the [id number]. No fracture or dislocation of the imaged pelvis. Report Dictated on Electronically Signed By: Tiago Charles Electronically Signed Date/Time: 09/06/2022 2:12 AM EDT [facility] Patient Name: DANIEL DIAZ ECHO : 1950 Exam Date/Time: 09/06/2022 02:07 Procedure: XR PELVIS 1-2 VIEWS Ordering Provider: HUTSON RICHARD Reason For Exam: TRAUMA PELVIS: CLINICAL INDICATION: Pain, trauma. TECHNIQUE: AP. Technical note: Upper pelvis is excluded from the [id number]. COMPARISON: None. FINDINGS: There is no evidence for fracture or dislocation. The hips joints are unremarkable. The imaged sacroiliac joints are normal. No bone lesion is identified. There is no soft tissue abnormality. Surgical clips project over the right groin. [facility] Tiago Charles MD - Patient Name: DRAKE ECHO : 1950 Exam Date/Time: 09/06/2022 02:07 Procedure: XR PELVIS 1-2 VIEWS Ordering Provider: HUTSON RICHARD Reason For Exam: TRAUMA PELVIS: CLINICAL INDICATION: Pain, trauma. TECHNIQUE: AP. Technical note: Upper pelvis is excluded from the [id number]. COMPARISON: None. FINDINGS: There is no evidence for fracture or dislocation. The hips joints are unremarkable. The imaged sacroiliac joints are normal. No bone lesion is identified. There is no soft tissue abnormality. Surgical clips project over the right groin. IMPRESSION: Upper pelvis is excluded from the bzqxm-pv-[id number]. No fracture or dislocation of the imaged pelvis. Report Dictated on Electronically Signed By: Tiago Charles Electronically Signed Date/Time: 09/06/2022 2:12 AM EDT [facility] Radiology Study observation (narrative) [facility] XR Shoulder - left 2 Viewson 09-06-2022 No fracture or dislo cation. Report Dictated on Electronically Signed By: Tiago Charles Electronically Signed Date/Time: 09/06/2022 3:11 AM EDT [facility] [employer] [facility] Patient Name: DANIEL DIAZ ECHO : 1950 Exam Date/Time: 09/06/2022 02:47 Procedure: XR SHOULDER 2+ VIEWS LEFT Ordering Provider: FUENTES CALEB Reason For Exam: Fall pain trauma LEFT SHOULDER: CLINICAL INDICATION: Pain. TECHNIQUE: Four views of the left shoulder COMPARISON: None. FINDINGS: There is no evidence for fracture or dislocation. The glenohumeral and acromioclavicular joints are unremarkable. No bone lesion is identified. There is no soft tissue abnormality. [facility] Tiago Charles MD - Patient [...] fracture or dislocation. Report Dictated on Workstation: [employer] Electronically Signed By: Tiago Charles Electronically Signed Date/Time: 09/06/2022 3:11 AM EDT [facility] Radiology Study observation (narrative) [facility] XR Shoulder - right 2 Viewso n 09-06-2022 No fracture or dislo cation. Report Dictated on Electronically Signed By: Tiago Charles Electronically Signed Date/Time: 09/06/2022 2:42 AM EDT [facility] Patient Name: PATSY MCFARLANE : 1950 [...] identified. There is no soft tissue abnormality. [facility] Tiago Charles MD - [facility] Name[facility] : 1950 [id number] Exam Date/Time: 09/06/2022 02:47 Procedure: XR SHOULDER [...] Electronically Signed Date/Time: 09/06/2022 2:42 AM EDT [facility] Radiology Study observation (narrative) [facility] CULTURE BLOODon 03-14-2022 Microscopic examination of blood, culture CULTURE BLOOD --> Status: F [employer] testing is not routinely performed on Gram positive bacilli. If a Listeria infection is highly suspected, contact the Microbiology laboratory ([phone]). positive bacilli. If a Listeria infection is highly suspected, contact the Microbiology laboratory ([phone]). 1 Organism Propionibacterium acnes Isolated: Contamination likely unless additional blood culture sets are found to be positive with the same organism. Normal [facility] Comment on above: Performed By: #### C /BLD #### [facility] [address] [address] CULTURE BLOOD (Two)on 2021 Microscopic examination of blood, culture CULTURE BLOOD (Two) --> Status: F No growth at 5 days. Normal [facility] Comment on above: Performed By: #### P T/AP, BMP3, HEMDF #### [facility] [address] [place] [address] GASTROINTESTINAL PCR PANELon 03-12-2022 GASTROINTESTINAL PCR PANEL [...] A, Sapovirus Gastrointestinal PCR Panel. _ The [employer] Gastrointestinal PCR Panel can detect the following targets: Campylobacter, Plesiomonas shigelloides, Salmonella, Vibrio species, Vibrio cholerae, Yersinia enterocolitica, Shiga toxin-producing E coli (STEC) including E coli O157, Enterotoxigenic E coli (ETEC), Shigella/Enteroinvasive E coli (EIEC), Cryptosporidium, Cyclospora cayetanensis, Entamoeba histolytica, Giardia lamblia, Adenovirus F 40/41, Astrovirus, Norovirus GI/GII, Rotavirus A, Sapovirus Normal [facility] Comment on above: Performed By: #### B FGI #### [address] [address] Gastrointestinal Panel by CEDRICK Blue 03-12-2022 Gastrointestinal [...] 40/41, Astrovirus, Norovirus GI/GII, Rotavirus A, Sapovirus [facility] Test Performed by [facility], [address] [place] [address] [facility] Glucose,Bedsideon 03-12-2022 Glucose [Mass/Vol] 177 mg/dL High 70-100 [facility] Comment on above: Result Comment: Test performed by glucose meter. Results may be 10%-15% lower than serum/plasma values. (CLIA ID [id number]) Performed By: #### B GLU #### [facility] [address] [facility] [place] [address] Glucose [Mass/Vol] 130 mg/dL High 70-100 [facility] Comment on above: Result Comment: Test performed by glucose meter. Results may be 10%-15% lower than serum/plasma values. (CLIA ID [id number]) Performed By: #### B GLU #### [facility] [address] [place] [address] Glucose [Mass/Vol] 141 mg/dL High 70-100 [facility] Comment on above: Result Comment: Test performed by glucose meter. Results may be 10%-15% lower than serum/plasma values. (CLIA ID [id number]) Performed By: #### P T/AP, BMP3, HEMDF #### [facility] [address] [place] [address] Glucose [Mass/Vol] 120 mg/dL High 70-100 [facility] Comment on above: Result Comment: Test performed by glucose meter. Results may be 10%-15% lower than serum/plasma values. (CLIA ID [id number]) Performed By: #### B GLU #### [facility] [address] [facility] [place] [address] POCT GlucoseOrdered By: Hansel Connell on 03-12-2022 Glucose [Mass/Vol] 177 mg/dL High 70 - 100 mg/dL [facility] Work Phone: Comment on above: Test performed by gl ucose meter. Results may be 10%-15% lower than serum/plasma values. (CLIA ID [id number]) Interpretation and review of laboratory results Abnormal [facility] Work Phone: [facility] Work Phone: POCT Glucoseon 03-12-2022 Test Performed by [facility], [address] LAB Glucose [Mass/Vol] 130 mg/dL High 70 - 100 mg/dL [facility] Comment on above: Test performed by gl ucose meter. Results may be 10%-15% lower than serum/plasma values. (CLIA ID [id number]) Interpretation and review of laboratory results Abnormal [facility] Test Performed by [facility], [address] LAB [facility] Glucose [Mass/Vol] 141 mg/dL High 70 - 100 mg/dL [facility] Comment on above: Test performed by gl ucose meter. Results may be 10%-15% lower than serum/plasma values. (CLIA ID [id number]) Interpretation and review of laboratory results Abnormal [facility] Test Performed by [facility], [address] LAB [facility] Glucose [Mass/Vol] 120 mg/dL High 70 - 100 mg/dL [facility] Work Phone: Comment on above: Test performed by gl ucose meter. Results may be 10%-15% lower than serum/plasma values. (CLIA ID [id number]) Interpretation and review of laboratory results Abnormal [facility] Work Phone: Test Performed by [facility], [address] LAB [facility] Work Phone: Prothrombin Timeon 2 INR 3.6 High 0.9-1.1 [facility] Comment on above: Result Comment: Rajiv mmended [...] By: #### P T/AP, BMP3, HEMDF #### [facility] [address] [place] [address] PT Coag (PPP) [Time] 36.1 s High 9.0-12.0 [facility] Comment on above: Result Comment: . Performed By: #### P T/AP, BMP3, HEMDF #### [facility] [address] [place] [address] Protime-INRon 03-12-2022 INR Coag (Bld) [Relative time] 3.6 {INR} High [facility] Comment on above: Recommended Anticoag ulant Therapy: [...] Interpretation and review of laboratory results Abnormal [facility] PT Coag (PPP) [Time] 36.1 s High 9 - [address] [facility] Comment on above: . Test Performed by [facility], [address] [facility] [place], [place] [id number] [place] [address] [facility] Basic Metabolic Panelon 02-21 Anion gap [Moles/Vol] 1 mmol/L Low 3-13 [facility] Comment on above: Performed By: #### P T/AP, BMP3, HEMDF #### [facility] [address] [place] [address] Calcium [Mass/Vol] 8.1 mg/dL Low 8.4-10.4 [facility] Comment on above: Performed By: #### P T/AP, BMP3, HEMDF #### [facility] [address] [place] [address] CO2 [Moles/Vol] 30 mmol/L Normal 22-30 [facility] Comment on above: Performed By: #### P T/AP, BMP3, HEMDF #### [facility] [address] [place] [address] Creatinine [Mass/Vol] 0.70 mg/dL Normal 0.52-1.25 [facility] Comment on above: Performed By: #### P T/AP, BMP3, HEMDF #### [facility] [address] [place] [address] GFR/1.73 sq M.predicted among blacks MDRD (S/P/Bld) [Vol rate/Area] mL/min/{1.73_m2} Normal >60 [facility] Comment on above: Performed By: #### P T/AP, BMP3, HEMDF #### [facility] [address] [place] [address] GFR/1.73 sq M.predicted among non-blacks MDRD (S/P/Bld) [Vol rate/Area] 87.4 mL/min/{1.73_m2} Normal >60 [facility] Comment on above: Result Comment: KDIG O [...] By: #### P T/AP, BMP3, HEMDF #### [facility] [address] [place] [address] Glucose [Mass/Vol] 118 mg/dL High 70-100 [facility] Comment on above: Performed By: #### P T/AP, BMP3, HEMDF #### [facility] [address] [place] [address] Urea nitrogen [Mass/Vol] 8 mg/dL Low 9-20 [facility] Comment on above: Performed By: #### P T/AP, BMP3, HEMDF #### [facility] [address] [place] [address] Chloride [Moles/Vol] 106 mmol/L Normal 98-107 [facility] Comment on above: Performed By: #### P T/AP, BMP3, HEMDF #### [facility] [address] [place] [address] Potassium [Moles/Vol] 4.1 mmol/L Normal 3.5-5.1 [facility] Comment on above: Performed By: #### P T/AP, BMP3, HEMDF #### [facility] [address] [place] [address] Sodium [Moles/Vol] 137 mmol/L Normal 135-145 [facility] Comment on above: Performed By: #### P T/AP, BMP3, HEMDF #### [facility] [address] [place] [address] Anion gap [Moles/Vol] 1 mmol/L Low 3 - 13 mmol/L [facility] Calcium [Mass/Vol] 8.1 mg/dL Low 8.4 - 10. 4 mg/dL [facility] Chloride [Moles/Vol] 106 mmol/L 98 - 107 mmol/L [facility] CO2 [Moles/Vol] 30 mmol/L 22 - 30 mmol/L [facility] Creatinine [Mass/Vol] 0.7 mg/dL 0.52 - 1.25 mg/dL [facility] eGFR mL/min 60 - PINF mL/min [facility] EGFR IF NonAfrican Syrian 87.4 mL/min 60 - PINF mL/min [facility] Comment on above: KDIGO guidelines pro [...] - 20 mg/dL [facility] Test Performed by [facility], [address] [place], [place] [id number] [place] [address] LAB [facility] CBC with Auto Differentialon 03-11-2022 [...] - 10.7 10*3/uL [facility] Test Performed by [facility], [address] [place] [address] LAB [facility] CULTURE URINEon 03-11-2022 CULTURE URINE 1 Organism [...] 1 S Amikacin(NORMA) <= 2 S Normal [facility] Comment on above: Performed By: #### P T/AP, BMP3, HEMDF #### [facility] [address] [place] [address] Culture, Urineon 03-11-2022 Bacteria identified Cx Nom (U) Klebsiella pneumoniae ss. pneumoniae Abnormal [facility] Bacteria identified Cx Nom (U) >100,000 CFU/ml [facility] Interpretation and review of laboratory results Abnormal [facility] Test Performed by [facility], [address] [place] [address] [facility] Glucose,Bedsideon 03-11-2022 Glucose [Mass/Vol] 140 mg/dL [facility] [address] Comment on above: Result Comment: Test performed by glucose meter. Results may be 10%-15% lower than serum/plasma values. (CLIA ID [id number]) Performed By: #### P T/AP, BMP3, HEMDF #### [facility] [address] [place] [address] Glucose [Mass/Vol] 121 mg/dL [address] Comment on above: Result Comment: Test performed by glucose meter. Results may be 10%-15% lower than serum/plasma values. (CLIA ID [id number]) Performed By: #### P T/AP, BMP3, HEMDF #### [facility] [address] [place] [address] Glucose [Mass/Vol] 127 mg/dL [address] Comment on above: Result Comment: Test performed by glucose meter. Results may be 10%-15% lower than serum/plasma values. (CLIA ID [id number]) Performed By: #### P T/AP, BMP3, HEMDF #### [facility] [address] [place] [address] Glucose [Mass/Vol] 139 mg/dL [facility] [address] Comment on above: Result Comment: Test performed by glucose meter. Results may be 10%-15% lower than serum/plasma values. (CLIA ID [id number]) Performed By: #### P T/AP, BMP3, HEMDF #### [facility] [address] [place] [address] Hemogram w/ Autodiffon 03-11 Abs Baso Cnt 0.0 10*3/uL Normal 0.0-0.2 [facility] Comment on above: Performed By: #### P T/AP, BMP3, HEMDF #### [facility] [address] [place] [address] Abs Neutrophile Cnt 2.9 10*3/uL Normal 1.8-7.0 [facility] Comment on above: Performed By: #### P T/AP, BMP3, HEMDF #### [place] [address] [place] [address] Basophils/100 WBC (Bld) 0.6 % Normal 0.0-2.0 [facility] Comment on above: Performed By: #### P T/AP, BMP3, HEMDF #### [facility] [address] [place] [address] Eosinophils (Bld) [#/Vol] 0.2 10*3/uL Normal 0.0-0.5 [facility] Comment on above: Performed By: #### P T/AP, BMP3, HEMDF #### [facility] [address] [place] [address] Eosinophils/100 WBC (Bld) 5.3 % Normal 1.0-6.0 [facility] Comment on above: Performed By: #### P T/AP, BMP3, HEMDF #### [facility] [address] [place] [address] Erythrocyte distribution width (RBC) [Ratio] 13.8 % Normal 11.5-14.5 [facility] Comment on above: Performed By: #### P T/AP, BMP3, HEMDF #### [facility] [address] [place] [address] Granulocytes/100 WBC (Bld) 62.2 % Normal 40.0-80.0 [facility] Comment on above: Performed By: #### P T/AP, BMP3, HEMDF #### [facility] [address] [place] [address] Hematocrit (Bld) [Volume fraction] 32.8 % Low 35.0-47.0 [facility] Comment on above: Performed By: #### P T/AP, BMP3, HEMDF #### [facility] [address] [place] [address] Hemoglobin (Bld) [Mass/Vol] 11.7 g/dL Normal 11.7-16.0 [facility] Comment on above: Performed By: #### P T/AP, BMP3, HEMDF #### [facility] [address] [place] [address] Lymphocytes (Bld) [#/Vol] 1.0 10*3/uL Normal 1.0-4.3 [facility] Comment on above: Performed By: #### P T/AP, BMP3, HEMDF #### [facility] [address] [place] [address] Lymphocytes/100 WBC (Bld) 22.5 % Normal 20.0-40.0 [facility] Comment on above: Performed By: #### P T/AP, BMP3, HEMDF #### [facility] [address] [place] [address] MCH (RBC) [Entitic mass] 32.1 pg Normal 26.0-34.0 [facility] Comment on above: Performed By: #### P T/AP, BMP3, HEMDF #### [facility] [address] [place] [address] MCHC 35.6 % Normal 32.0-36.0 [facility] Comment on above: Performed By: #### P T/AP, BMP3, HEMDF #### [facility] [address] [place] [address] MCV (RBC) [Entitic vol] 90.2 fL Normal 79.0-98.0 [facility] Comment on above: Performed By: #### P T/AP, BMP3, HEMDF #### [facility] [address] [place] [address] Monocytes (Bld) [#/Vol] 0.4 10*3/uL Normal 0.0-0.8 [facility] Comment on above: Performed By: #### P T/AP, BMP3, HEMDF #### [facility] [address] [place] [address] Monocytes/100 WBC (Bld) 9.4 % Normal 2.0-10.0 [facility] Comment on above: Performed By: #### P T/AP, BMP3, HEMDF #### [facility] [address] [place] [address] Platelet mean volume (Bld) [Entitic vol] 8.2 fL Normal 7.4-12.4 [facility] Comment on above: Result Comment: MPV is a calculated measurement using platelet volume ratio. Performed By: #### P T/AP, BMP3, HEMDF #### [facility] [address] [place] [address] Platelets (Bld) [#/Vol] 128 10*3/uL Low 140-440 [facility] Comment on above: Performed By: #### P T/AP, BMP3, HEMDF #### [facility] [address] [place] [address] RBC (Bld) [#/Vol] 3.63 10*6/uL Low 3.80-5.20 [facility] Comment on above: Performed By: #### P T/AP, BMP3, HEMDF #### [facility] [address] [place] [address] WBC (Bld) [#/Vol] 4.6 10*3/uL Normal 3.6-10.7 [facility] Comment on above: Performed By: #### P T/AP, BMP3, HEMDF #### [facility] [address] [place] [address] POCT COVID-19, Antigenon SARS-CoV-2 Nucleocapsid Antigen Negative Negative [facility] Comment on above: A negative result does not rule out the possibility of SARS-CoV-2 infection. NAAT-based methods should be considered for symptomatic patients presenting greater than seven days after onset of symptoms. Method: Lateral flow immunoassay. Fact sheets for healthcare providers and patients can be found at the following sites: https://www.fda.gov/media/609128/download https://www.fda.gov/media/353787/download Test Performed by [facility], [address] LAB [facility] POCT GlucoseOrdered By: Pedro Luis Mcleod on 03-11-2022 Glucose [Mass/Vol] 140 mg/dL High 70 - 100 mg/dL [facility] Comment on above: Test performed by gl ucose meter. Results may be 10%-15% lower than serum/plasma values. (CLIA ID [id number]) Interpretation and review of laboratory results Abnormal [facility] POCT Glucoseon 03-11-2022 Test Performed by [facility], [address] LAB Glucose [Mass/Vol] 121 mg/dL High 70 - 100 mg/dL [facility] Work Phone: Comment on above: Test performed by gl ucose meter. Results may be 10%-15% lower than serum/plasma values. (CLIA ID [id number]) Interpretation and review of laboratory results Abnormal [facility] Work Phone: Test Performed by [facility], [address] LAB [facility] Work Phone: Test Performed by [facility], [address] LAB Glucose [Mass/Vol] 139 mg/dL High 70 - 100 mg/dL [facility] Work Phone: Comment on above: Test performed by gl ucose meter. Results may be 10%-15% lower than serum/plasma values. (CLIA ID [id number]) Interpretation and review of laboratory results Abnormal [facility] Work Phone: Test Performed by [facility], [address] LAB [facility] Work Phone: POCT GlucoseOrdered By: Mil Marie on 03-11-2022 Glucose [Mass/Vol] 127 mg/dL High 70 - 100 mg/dL [facility] Work Phone: Comment on above: Test performed by gl ucose meter. Results may be 10%-15% lower than serum/plasma values. (CLIA ID [id number]) Interpretation and review of laboratory results Abnormal [facility] Work Phone: [facility] Work Phone: PROTIME/INR & PTTon 03-11-20 22 INR Coag (Bld) [Relative time] 5.0 {INR} Critically high [facility] Comment on above: Recommended Anticoag ulant Therapy: [...] Interpretation and review of laboratory results Abnormal [facility] Test Performed by [facility], [address] [place], [place], [place] [address] [facility] LAB [facility] Protime AND APTTon 2 INR 5.0 Critically high 0.9-1.1 [facility] Comment on above: Result Comment: Rajiv mmended [...] By: #### P T/AP, BMP3, HEMDF #### [facility] [address] [place] [address] aPTT Coag (Bld) [Time] 44.1 s High 20.0-30.[address] [facility] Comment on above: NOTE: The therapeuti c time for Heparin anticoagulation, based on Xa activity inhibition, is an APTT of 46-80 seconds. Result Comment: NOTE : The therapeutic time for Heparin anticoagulation, based on Xa activity inhibition, is an APTT of 46-80 seconds. Performed By: #### P T/AP, BMP3, HEMDF #### [facility] [address] [place] [address] PT Coag (PPP) [Time] 48.7 s High 9.0-12.[address] [facility] Comment on above: . Result Comment: . Performed By: #### P T/AP, BMP3, HEMDF #### [facility] [address] [place] [address] SARS-CoV-2 Antigenon SARS-CoV-2 Antigen Negative Normal Negative [facility] Comment on above: Result Comment: A negative result does not rule out the possibility of SARS-CoV-2 infection. NAAT-based methods should be considered for symptomatic patients presenting greater than seven days after onset of symptoms. Method: Lateral flow immunoassay. Fact sheets for healthcare providers and patients can be found at the following sites: https://www.fda.gov/media/335998/download https://www.fda.gov/media/183941/download Performed By: #### P T/AP, BMP3, HEMDF #### [facility] [address] [place] [address] Glucose,Bedsideon 03-10-2022 Glucose [Mass/Vol] 137 mg/dL High 70-100 [facility] Comment on above: Result Comment: Test performed by glucose meter. Results may be 10%-15% lower than serum/plasma values. (CLIA ID [id number]) Performed By: #### P T/AP, BMP3, HEMDF #### [facility] [address] [place] [address] Glucose [Mass/Vol] 98 mg/dL Normal 70-100 [facility] Comment on above: Result Comment: Test performed by glucose meter. Results may be 10%-15% lower than serum/plasma values. (CLIA ID [id number]) Performed By: #### P T/AP, BMP3, HEMDF #### [facility] [address] [place] [address] Glucose [Mass/Vol] 143 mg/dL High 70-100 [facility] Comment on above: Result Comment: Test performed by glucose meter. Results may be 10%-15% lower than serum/plasma values. (CLIA ID [id number]) Performed By: #### B GLU #### [facility] [address] [place] [address] Glucose [Mass/Vol] 170 mg/dL High 70-100 [facility] Comment on above: Result Comment: Test performed by glucose meter. Results may be 10%-15% lower than serum/plasma values. (CLIA ID [id number]) Performed By: #### B GLU #### [facility] [address] [place] [address] POCT GlucoseOrdered By: Tristin Mayers on 03-10-2022 Glucose [Mass/Vol] 137 mg/dL High 70 - 100 mg/dL [facility] Comment on above: Test performed by gl ucose meter. Results may be 10%-15% lower than serum/plasma values. (CLIA ID [id number]) Interpretation and review of laboratory results Abnormal [facility] POCT Glucoseon 03-10-2022 Test Performed by [facility], [address] LAB Glucose [Mass/Vol] 98 mg/dL 70 - 100 mg/dL [facility] Work Phone: Comment on above: Test performed by gl ucose meter. Results may be 10%-15% lower than serum/plasma values. (CLIA ID [id number]) Test Performed by [facility], [address] LAB [facility] Work Phone: Test Performed by [facility], [address] LAB Glucose [Mass/Vol] 170 mg/dL High 70 - 100 mg/dL [facility] Work Phone: Comment on above: Test performed by gl ucose meter. Results may be 10%-15% lower than serum/plasma values. (CLIA ID [id number]) Interpretation and review of laboratory results Abnormal [facility] Work Phone: Test Performed by [facility], [address], [place], [place] [address] [facility] LAB [facility] Work Phone: POCT GlucoseOrdered By: Mil Benitez on 03-10-2022 Glucose [Mass/Vol] 143 mg/dL High 70 - 100 mg/dL [facility] Work Phone: Comment on above: Test performed by gl ucose meter. Results may be 10%-15% lower than serum/plasma values. (CLIA ID [id number]) Interpretation and review of laboratory results Abnormal [facility] Work Phone: [facility] Work Phone: PROTIME/INR & PTTon 03-10-20 22 aPTT Coag (Bld) [Time] 40.6 s High 20 - 30.5 s [facility] Comment on above: NOTE: The therapeuti c time for Heparin anticoagulation, based on Xa activity inhibition, is an APTT of 46-80 seconds. INR Coag (Bld) [Relative time] 3.4 {INR} High [facility] Comment on above: Recommended [...] Interpretation and review of laboratory results Abnormal [facility] PT Coag (PPP) [Time] 34 s High 9 - 12 s [facility] Comment on above: . Test Performed by [facility], [address], [place], [place] [id number] [place] [address] LAB [facility] Protime AND APTTon 2 aPTT Coag (Bld) [Time] 40.6 s High 20.0-30.5 [facility] Comment on above: Result Comment: NOTE : The therapeutic time for Heparin anticoagulation, based on Xa activity inhibition, is an APTT of 46-80 seconds. Performed By: #### P T/ANJU BMP3, HEMDF #### [facility] [address] [place] [address] INR 3.4 High 0.9-1.1 [facility] Comment on above: Result Comment: Rajiv mmended [...] prevent Myocardial Infarction Performed By: #### P T/ANJU BMP3, HEMDF #### [facility] [address] [facility] [place] [address] PT Coag (PPP) [Time] 34.0 s High 9.0-12.0 [facility] Comment on above: Result Comment: . Performed By: #### P T/AP BMP3, HEMDF #### [facility] [address] [place] [address] Basic Metabolic Panelon 09- Anion gap [Moles/Vol] 4 mmol/L Normal 3-13 [facility] Comment on above: Performed By: #### P T/AP BMP3, HEMDF #### [facility] [address] [place] [address] Calcium [Mass/Vol] 7.7 mg/dL Low 8.4-10.4 [facility] Comment on above: Performed By: #### P T/AP BMP3, HEMDF #### [facility] [address] [place] [address] CO2 [Moles/Vol] 25 mmol/L Normal 22-30 [facility] Comment on above: Performed By: #### P T/AP, BMP3, HEMDF #### [facility] [address] [place] [address] Glucose [Mass/Vol] 84 mg/dL Normal 70-100 [facility] Comment on above: Performed By: #### P T/AP, BMP3, HEMDF #### [facility] [address] [place] [address] Urea nitrogen [Mass/Vol] 14 mg/dL Normal 9-20 [facility] Comment on above: Performed By: #### P T/AP, BMP3, HEMDF #### [facility] [address] [place] [address] Creatinine [Mass/Vol] 0.85 mg/dL Normal 0.52-1.25 [facility] Comment on above: Performed By: #### P T/AP, BMP3, HEMDF #### [facility] [address] [place] [address] GFR/1.73 sq M.predicted among blacks MDRD (S/P/Bld) [Vol rate/Area] 80.1 mL/min/{1.73_m2} Normal >60 [facility] Comment on above: Performed By: #### P T/AP, BMP3, HEMDF #### [facility] [address] [place] [address] GFR/1.73 sq M.predicted among non-blacks MDRD (S/P/Bld) [Vol rate/Area] 69.1 mL/min/{1.73_m2} Normal >60 [facility] Comment on above: Result Comment: KDIG O [...] By: #### P T/AP, BMP3, HEMDF #### [facility] [address] [place] [address] Chloride [Moles/Vol] 106 mmol/L Normal 98-107 [facility] Comment on above: Performed By: #### P T/AP, BMP3, HEMDF #### [employer] [address] [place] [address] Potassium [Moles/Vol] 3.9 mmol/L Normal 3.5-5.1 [facility] Comment on above: Performed By: #### P T/AP, BMP3, HEMDF #### [employer] [facility] [address] [place] [address] Sodium [Moles/Vol] 135 mmol/L Normal 135-145 [facility] Comment on above: Performed By: #### P T/AP, BMP3, HEMDF #### [facility] [address] [place] [address] Basic Metabolic Panel w/ Ref uriel to MGon 03-09-2022 Anion gap [Moles/Vol] 4 mmol/L 3 - 13 mmol/L [facility] Calcium [Mass/Vol] 7.7 mg/dL Low 8.4 - 10. 4 mg/dL [facility] Chloride [Moles/Vol] 106 mmol/L 98 - 107 mmol/L [facility] CO2 [Moles/Vol] 25 mmol/L 22 - 30 mmol/L [facility] Creatinine [Mass/Vol] 0.85 mg/dL 0.52 - 1.25 mg/dL [facility] EGFR IF NonAfrican Syrian 69.1 mL/min 60 - PINF mL/min [facility] Comment on above: KDIGO guidelines pro vide [...] - 20 mg/dL [facility] Test Performed by [facility], [address] LAB [facility] CBC with Auto Differentialon [...] 11.2 g/dL Low 11.7 - 16 g/dL [facility] Interpretation and [...] - 10.7 10*3/uL [facility] Test Performed by [facility], [address] [place], [place] [id number] [place] [address] [facility] Glucose,Bedsideon 03-09-2022 Glucose [Mass/Vol] 186 mg/dL High [address] Comment on above: Result Comment: Test performed by glucose meter. Results may be 10%-15% lower than serum/plasma values. (CLIA ID [id number]) Performed By: #### P T/AP, BMP3, HEMDF #### [facility] [address] [place] [address] Glucose [Mass/Vol] 139 mg/dL High [address] [place] [address] Comment on above: Result Comment: Test performed by glucose meter. Results may be 10%-15% lower than serum/plasma values. (CLIA ID [id number]) Performed By: #### P T/AP, BMP3, HEMDF #### [facility] [address] [place] [address] Glucose [Mass/Vol] 160 mg/dL High 70-100 [facility] Comment on above: Result Comment: Test performed by glucose meter. Results may be 10%-15% lower than serum/plasma values. (CLIA ID [id number]) Performed By: #### P T/AP, BMP3, HEMDF #### [facility] [address] [place] [address] Glucose [Mass/Vol] 96 mg/dL Normal 70-100 [facility] Comment on above: Result Comment: Test performed by glucose meter. Results may be 10%-15% lower than serum/plasma values. (CLIA ID [id number]) Performed By: #### B GLU #### [facility] [address] [place] [address] Hemoglobin A1Con 03-09-2022 Glucose [Mass/Vol] 151 mg/dL Normal [facility] Comment on above: Performed By: #### B GLU #### [facility] [address] [place] [address] HbA1c (Bld) [Mass fraction] 6.9 % Abnormal [facility] Comment on above: Result Comment: Norm al less than 5.7% Prediabetes 5.7% to 6.4% Diabetes 6.5% or higher --HgbA1C levels may not be accurate in patients who have renal disease, received recent blood transfusions, are anemic, or who have dyshemoglobinemia. Performed By: #### B GLU #### [facility] [address] [place] [address] Hemoglobin A1con 03-09-2022 HbA1c (Bld) [Mass fraction] 6.9 % Abnormal [facility] Comment on above: Normal less than 5.7 % Prediabetes 5.7% to 6.4% Diabetes 6.5% or higher --HgbA1C levels may not be accurate in patients who have renal disease, received recent blood transfusions, are anemic, or who have dyshemoglobinemia. Interpretation and review of laboratory results Abnormal [facility] Magnesium [Mass/Vol] 151 mg/dL [facility] Test Performed by [facility], [address] [place], [place] [address] [facility] LAB [facility] Hemogram w/ Autodiffon 03-09 Abs Baso Cnt 0.0 10*3/uL Normal 0.0-0.2 [facility] Comment on above: Performed By: #### P T/AP, BMP3, HEMDF #### [facility] [address] [place] [address] Abs Neutrophile Cnt 4.1 10*3/uL Normal 1.8-7.0 [facility] Comment on above: Performed By: #### P T/AP, BMP3, HEMDF #### [facility] [address] [place] [address] Basophils/100 WBC (Bld) 0.6 % Normal 0.0-2.0 [facility] Comment on above: Performed By: #### P T/AP, BMP3, HEMDF #### [facility] [address] [place] [address] Eosinophils (Bld) [#/Vol] 0.1 10*3/uL Normal 0.0-0.5 [facility] Comment on above: Performed By: #### P T/AP, BMP3, HEMDF #### [facility] [address] [place] [address] Eosinophils/100 WBC (Bld) 1.6 % Normal 1.0-6.0 [facility] Comment on above: Performed By: #### P T/AP, BMP3, HEMDF #### [facility] [address] [place] [address] Erythrocyte distribution width (RBC) [Ratio] 13.9 % Normal 11.5-14.5 [facility] Comment on above: Performed By: #### P T/AP, BMP3, HEMDF #### [facility] [address] [place] [address] Granulocytes/100 WBC (Bld) 74.6 % Normal 40.0-80.0 [facility] Comment on above: Performed By: #### P T/AP, BMP3, HEMDF #### [facility] [address] [place] [address] Hematocrit (Bld) [Volume fraction] 31.8 % Low 35.0-47.0 [facility] Comment on above: Performed By: #### P T/AP, BMP3, HEMDF #### [facility] [address] [place] [address] Hemoglobin (Bld) [Mass/Vol] 11.2 g/dL Low 11.7-16.0 [facility] Comment on above: Performed By: #### P T/AP, BMP3, HEMDF #### [facility] [address] [place] [address] Lymphocytes (Bld) [#/Vol] 0.9 10*3/uL Low 1.0-4.3 [facility] Comment on above: Performed By: #### P T/AP, BMP3, HEMDF #### [facility] [address] [place] [address] Lymphocytes/100 WBC (Bld) 16.3 % Low 20.0-40.0 [facility] Comment on above: Performed By: #### P T/AP, BMP3, HEMDF #### [facility] [address] [place] [address] MCH (RBC) [Entitic mass] 32.2 pg Normal 26.0-34.0 [facility] Comment on above: Performed By: #### P T/AP, BMP3, HEMDF #### [facility] [address] [place] [address] MCHC 35.2 % Normal 32.0-36.0 [facility] Comment on above: Performed By: #### P T/AP, BMP3, HEMDF #### [facility] [address] [place] [address] MCV (RBC) [Entitic vol] 91.4 fL Normal 79.0-98.0 [facility] Comment on above: Performed By: #### P T/AP, BMP3, HEMDF #### [facility] [address] [place] [address] Monocytes (Bld) [#/Vol] 0.4 10*3/uL Normal 0.0-0.8 [facility] Comment on above: Performed By: #### P T/AP, BMP3, HEMDF #### [facility] [address] [place] [address] Monocytes/100 WBC (Bld) 6.9 % Normal 2.0-10.0 [facility] Comment on above: Performed By: #### P T/AP, BMP3, HEMDF #### [facility] [address] [place] [address] Platelet mean volume (Bld) [Entitic vol] 8.4 fL Normal 7.4-12.4 [facility] Comment on above: Result Comment: MPV is a calculated measurement using platelet volume ratio. Performed By: #### P T/AP, BMP3, HEMDF #### [facility] [address] [place] [address] Platelets (Bld) [#/Vol] 102 10*3/uL Low 140-440 [facility] Comment on above: Performed By: #### P T/AP, BMP3, HEMDF #### [facility] [address] [place] [address] RBC (Bld) [#/Vol] 3.48 10*6/uL Low 3.80-5.20 [facility] Comment on above: Performed By: #### P T/AP, BMP3, HEMDF #### [facility] [address] [place] [address] WBC (Bld) [#/Vol] 5.5 10*3/uL Normal 3.6-10.7 [facility] Comment on above: Performed By: #### P T/AP, BMP3, HEMDF #### [facility] [address] [place] [address] POCT GlucoseOrdered By: Blayne Villalobos on 03-09-2022 Glucose [Mass/Vol] 186 mg/dL High 70 - 100 mg/dL [facility] Work Phone: Comment on above: Test performed by gl ucose meter. Results may be 10%-15% lower than serum/plasma values. (CLIA ID [id number]) Interpretation and review of laboratory results Abnormal [facility] Work Phone: [facility] Work Phone: POCT Glucoseon 03-09-2022 Test Performed by [facility], [address] [place], [place] [id number] [place] [address] LAB Glucose [Mass/Vol] 139 mg/dL High 70 - 100 mg/dL [facility] Work Phone: Comment on above: Test performed by gl ucose meter. Results may be 10%-15% lower than serum/plasma values. (CLIA ID [id number]) Interpretation and review of laboratory results Abnormal [facility] Work Phone: Test Performed by [facility], [address] LAB [facility] Work Phone: Test Performed by [facility], [address], [address] LAB Glucose [Mass/Vol] 96 mg/dL 70 - 100 mg/dL [facility] Work Phone: Comment on above: Test performed by gl ucose meter. Results may be 10%-15% lower than serum/plasma values. (CLIA ID [id number]) Test Performed by [facility], [address], [address] LAB [facility] Work Phone: POCT GlucoseOrdered By: Ines Cohi on 03-09-2022 Glucose [Mass/Vol] 160 mg/dL High 70 - 100 mg/dL [facility] Comment on above: Test performed by gl ucose meter. Results may be 10%-15% lower than serum/plasma values. (CLIA ID [id number]) Interpretation and review of laboratory results Abnormal [facility] PROTIME/INR & PTTon 03-09-20 22 aPTT Coag [...] Interpretation and review of laboratory results Abnormal [facility] PT Coag (PPP) [Time] 24.5 s High 9 - [address] [facility] Comment on above: . Test Performed by [facility], [address] LAB [facility] Protime AND APTTon aPTT Coag (Bld) [Time] 40.6 s High 20.0-30.5 [facility] Comment on above: Result Comment: NOTE : The therapeutic time for Heparin anticoagulation, based on Xa activity inhibition, is an APTT of 46-80 seconds. Performed By: #### P T/APCLAIRE, HEMDF #### [facility] [address] [place] [address] INR 2.4 High 0.9-1.1 [facility] Comment on above: Result Comment: Rajiv mmended [...] By: #### P T/AP BMP3, HEMDF #### [facility] [address] [place] [address] PT Coag (PPP) [Time] 24.5 s High 9.0-12.0 [facility] Comment on above: Result Comment: . Performed By: #### P T/AP BMP3, HEMDF #### [facility] [address] [place] [address] TSHon 03-09-2022 TSH Qn 3.493 u[IU]/mL 0.465 - 4.68 u[IU]/mL [facility] Test Performed by [facility], [address] [place] [address] [facility] Thyroid Stim. Hormoneon 02-20 Thyroid Stim. Hormone 3.493 u[IU]/mL Normal 0.465-4.68 0 [facility] Comment on above: Performed By: #### B GLU #### [facility] [address] [place] [address] Vancomycinon 03-09-2022 Vancomycin 12.3 ug/mL Low 15.0-20.0 [facility] Comment on above: Result Comment: . Performed By: #### P T/AP, BMP3, HEMDF #### [facility] [address] [place] [address] Vancomycin Level, Randomon 0 03-09-2022 Interpretation and review of laboratory results Abnormal [facility] Vancomycin 12.3 ug/mL Low 15 - 20 ug/mL [facility] Comment on above: . Test Performed by [facility], [address] [place] [address] [facility] LAB [facility] Basic Metabolic Panelon 02-20 Anion gap [Moles/Vol] 4 mmol/L Normal 3-13 [facility] Comment on above: Performed By: #### P T/AP, BMP3, HEMDF #### [facility] [address] [place] [address] Calcium [Mass/Vol] 8.4 mg/dL Normal 8.4-10.4 [facility] Comment on above: Performed By: #### P T/AP, BMP3, HEMDF #### [facility] [address] [place] [address] CO2 [Moles/Vol] 27 mmol/L Normal 22-30 [facility] Comment on above: Performed By: #### P T/AP, BMP3, HEMDF #### [facility] [address] [place] [address] Creatinine [Mass/Vol] 0.95 mg/dL Normal 0.52-1.25 [facility] Comment on above: Performed By: #### P T/AP, BMP3, HEMDF #### [facility] [address] [place] [address] GFR/1.73 sq M.predicted among blacks MDRD (S/P/Bld) [Vol rate/Area] 70.0 mL/min/{1.73_m2} Normal >60 [facility] Comment on above: Performed By: #### P T/AP, BMP3, HEMDF #### [facility] [address] [place] [address] GFR/1.73 sq M.predicted among non-blacks MDRD (S/P/Bld) [Vol rate/Area] 60.4 mL/min/{1.73_m2} Normal >60 [facility] Comment on above: Result Comment: KDIG O [...] By: #### P T/AP, BMP3, HEMDF #### [facility] [address] [place] [address] Glucose [Mass/Vol] 117 mg/dL High 70-100 [facility] Comment on above: Performed By: #### P T/AP, BMP3, HEMDF #### [facility] [address] [place] [address] Urea nitrogen [Mass/Vol] 16 mg/dL Normal 9-20 [facility] Comment on above: Performed By: #### P T/AP, BMP3, HEMDF #### [facility] [address] [place] [address] Chloride [Moles/Vol] 102 mmol/L Normal 98-107 [facility] Comment on above: Performed By: #### P T/AP, BMP3, HEMDF #### [facility] [address] [place] [address] Potassium [Moles/Vol] 4.5 mmol/L Normal 3.5-5.1 [facility] Comment on above: Performed By: #### P T/AP, BMP3, HEMDF #### [facility] [address] [place] [address] Sodium [Moles/Vol] 133 mmol/L Low 135-145 [facility] Comment on above: Performed By: #### P T/AP, BMP3, HEMDF #### [facility] [address] [place], [place] [address] Anion gap [Moles/Vol] 4 mmol/L 3 - 13 mmol/L [facility] Calcium [Mass/Vol] 8.4 mg/dL 8.4 - 10. 4 mg/dL [facility] Chloride [Moles/Vol] 102 mmol/L 98 - 107 mmol/L [facility] CO2 [Moles/Vol] 27 mmol/L 22 - 30 mmol/L [facility] Creatinine [Mass/Vol] 0.95 mg/dL 0.52 - 1.25 mg/dL [facility] EGFR IF NonAfrican Syrian 60.4 mL/min 60 - PINF mL/min [facility] Comment on above: KDIGO guidelines pro [...] - 20 mg/dL [facility] Test Performed by [facility], [address] [place], [place] [id number] [place] [address] LAB [facility] CBC with Auto Differentialon 03-08-2022 [...] [Mass/Vol] 12.6 g/dL 11.7 - 16 g/dL [facility] Interpretation and review of laboratory results [...] [Ratio] 14.1 % 11.5 - 14.5 % [facility] Platelet mean volume (Bld) [Entitic vol] 8.9 fL 7.4 - 12.[address] [facility] Comment on above: MPV is a calculated measurement using platelet volume ratio. Platelets (Bld) [#/Vol] 132 10*3/uL Low 140 - 440 10*3/uL [facility] RBC (Bld) [#/Vol] 3.96 10*6/uL 3.8 - 5.2 10*6/uL [facility] WBC (Bld) [#/Vol] 8.7 10*3/uL 3.6 - 10.7 10*3/uL [facility] Test Performed by [facility], [address], [place], [place] [address] [facility] CR Ankle 3+ Views Lefton CR Ankle 3+ Views Left Patient Name: RANDOLPH HUNTER Diagnostic Radiology ACCESSION EXAM DATE/TIME PROCEDURE ORDERING PROVIDER [id number] 03/08/2022 16:53 EDT CR Ankle 3+ Views Left JOHN LEZAMA LOUANN B CPT code 25581 Reason For Exam (CR Ankle 3+ Views [...] atherosclerotic changes. Report Dictated on Workstation: [id number] Final Dictating Physician: HARPER ANTONIO DO, I Signed Date and Time: 03/08/2022 5:15 pm Signed by: HARPER ANTONIO DO, I Transcribed Date and Time: 03/08/2022 5:16 Normal [facility] Complete Urinalysison 2021 Appearance (U) Turbid Abnormal Clear [facility] Comment on above: Result Comment: . Performed By: #### P T/AP, BMP3, HEMDF #### [facility] [address] [place] [address] Bacteria Loaded Abnormal Negative [facility] Comment on above: Result Comment: . Performed By: #### P T/AP, BMP3, HEMDF #### [facility] [address] [place] [address] Bilirubin,Urine Negative Normal Negative [facility] Comment on above: Result Comment: . Performed By: #### P T/AP, BMP3, HEMDF #### [facility] [address] [place] [address] Color (U) Light-Yellow Normal Lt. Yellow [facility] Comment on above: Result Comment: . Performed By: #### P T/AP, BMP3, HEMDF #### [facility] [address] [place] [address] Glucose Ql (U) Normal Normal Normal (<70) [facility] Comment on above: Result Comment: . Performed By: #### P T/AP, BMP3, HEMDF #### [facility] [address] [place] [address] Ketone,Urine Negative Normal Negative [facility] Comment on above: Result Comment: . Performed By: #### P T/AP, BMP3, HEMDF #### [facility] [address] [place] [address] Leukocytes,Urine 500 Elvi/uL Abnormal Negative [facility] Comment on above: Result Comment: . Performed By: #### P T/AP, BMP3, HEMDF #### [facility] [address] [place] [address] Mucous Threads Few Normal Negative [facility] Comment on above: Result Comment: . Performed By: #### P T/AP, BMP3, HEMDF #### [facility] [address] [place] [address] Nitrites,Urine Positive Abnormal Negative [facility] Comment on above: Result Comment: . Performed By: #### P T/AP, BMP3, HEMDF #### [facility] [address] [place] [address] Non-Squamous Epithelial < 1 Abnormal Negative [facility] Comment on above: Result Comment: . Performed By: #### P T/AP, BMP3, HEMDF #### [facility] [address] [place] [address] Occult Blood,Urine 0.06 mg/dL Abnormal Negative [facility] Comment on above: Result Comment: . Performed By: #### P T/AP, BMP3, HEMDF #### [facility] [address] [place] [address] pH,Urine 6.0 Normal 5.0-8.0 [facility] Comment on above: Result Comment: . Performed By: #### P T/AP, BMP3, HEMDF #### [facility] [address] [place] [address] Protein (U) [Mass/Vol] 20 mg/dL Abnormal Negative [facility] Comment on above: Result Comment: . Performed By: #### P T/AP, BMP3, HEMDF #### [facility] [address] [place] [address] RBC, Urine 3 - 5 Abnormal 0-2 [facility] Comment on above: Result Comment: . Performed By: #### P T/AP, BMP3, HEMDF #### [facility] [address] [place] [address] Specific Monarch,Urine 1.014 Normal 1.005 - 1.030 [facility] Comment on above: Result Comment: . Performed By: #### P T/AP, BMP3, HEMDF #### [facility] [address] [place] [address] Squamous Epithelial 0 - 2 Normal 3-5 [facility] Comment on above: Result Comment: . Performed By: #### P T/AP, BMP3, HEMDF #### [facility] [address] [place] [address] Urobilinogen,Urine Normal Normal Normal (0-1) [facility] Comment on above: Result Comment: . Performed By: #### P T/AP, BMP3, HEMDF #### [facility] [address] [place] [address] WBC, Urine 51 - 100 Abnormal 0-5 [facility] Comment on above: Result Comment: . Performed By: #### P T/AP, BMP3, HEMDF #### [facility] [address] [place] [address] ED Provider Noteon 2 ED Provider Note [...] she did have a fall at her detention this morning but did not hit her [...] mouth daily CALCIUM CARBONATE 600MG W/ VITAMIN [id number] Med cyanocobalamin 1000 MCG/ML injection Inject 1,000 [...] use: Never Sexual activity: Not Currently SCREENINGS Edwige Coma Scale Eye Opening: Spontaneous Best Verbal Response: Oriented Best Motor Response: Obeys commands [place] Coma Scale Score: 15 PHYSICAL EXAM (up [...] Exam Kaycee (more content not included)... Normal [facility] Glucose,Bedsideon 03-08-2022 Glucose [Mass/Vol] 112 mg/dL High 70-100 [facility] Comment on above: Result Comment: Test performed by glucose meter. Results may be 10%-15% lower than serum/plasma values. (CLIA ID [id number]) Performed By: #### P T/AP, BMP3, HEMDF #### [facility] [address] [place] [address] Glucose [Mass/Vol] 81 mg/dL Normal 70-100 [facility] Comment on above: Result Comment: Test performed by glucose meter. Results may be 10%-15% lower than serum/plasma values. (CLIA ID [id number]) Performed By: #### P T/AP, BMP3, HEMDF #### [facility] [address] [place] [address] Hemogram w/ Autodiffon 03-08 Abs Baso Cnt 0.0 10*3/uL Normal 0.0-0.2 [facility] Comment on above: Performed By: #### P T/AP, BMP3, HEMDF #### [facility] [address] [place] [place] [address] Abs Neutrophile Cnt 7.5 10*3/uL High 1.8-7.0 [facility] Comment on above: Performed By: #### P T/AP, BMP3, HEMDF #### [facility] [address] [place] [address] Basophils/100 WBC (Bld) 0.1 % Normal 0.0-2.0 [facility] Comment on above: Performed By: #### P T/AP, BMP3, HEMDF #### [facility] [address] [place] [address] Eosinophils (Bld) [#/Vol] 0.0 10*3/uL Normal 0.0-0.5 [facility] Comment on above: Performed By: #### P T/AP, BMP3, HEMDF #### [facility] [address] [place] [address] Eosinophils/100 WBC (Bld) 0.2 % Low 1.0-6.0 [facility] Comment on above: Performed By: #### P T/AP, BMP3, HEMDF #### [facility] [address] [place] [address] Erythrocyte distribution width (RBC) [Ratio] 14.1 % Normal 11.5-14.5 [facility] Comment on above: Performed By: #### P T/AP, BMP3, HEMDF #### [facility] [address] [place] [address] Granulocytes/100 WBC (Bld) 86.4 % High 40.0-80.0 [facility] Comment on above: Performed By: #### P T/AP, BMP3, HEMDF #### [facility] [address] [place] [address] Hematocrit (Bld) [Volume fraction] 36.9 % Normal 35.0-47.0 [facility] Comment on above: Performed By: #### P T/AP, BMP3, HEMDF #### [facility] [address] [place] [address] Hemoglobin (Bld) [Mass/Vol] 12.6 g/dL Normal 11.7-16.0 [facility] Comment on above: Performed By: #### P T/AP, BMP3, HEMDF #### [facility] [address] [place] [address] Lymphocytes (Bld) [#/Vol] 0.7 10*3/uL Low 1.0-4.3 [facility] Comment on above: Performed By: #### P T/AP, BMP3, HEMDF #### [facility] [address] [place] [address] Lymphocytes/100 WBC (Bld) 8.3 % Low 20.0-40.0 [facility] Comment on above: Performed By: #### P T/AP, BMP3, HEMDF #### [facility] [address] [place] [address] MCH (RBC) [Entitic mass] 31.9 pg Normal 26.0-34.0 [facility] Comment on above: Performed By: #### P T/AP, BMP3, HEMDF #### [facility] [address] [place] [address] MCHC 34.3 % Normal 32.0-36.0 [facility] Comment on above: Performed By: #### P T/AP, BMP3, HEMDF #### [facility] [address] [place] [address] MCV (RBC) [Entitic vol] 93.2 fL Normal 79.0-98.0 [facility] Comment on above: Performed By: #### P T/AP, BMP3, HEMDF #### [facility] [address] [place] [address] Monocytes (Bld) [#/Vol] 0.4 10*3/uL Normal 0.0-0.8 [facility] Comment on above: Performed By: #### P T/AP, BMP3, HEMDF #### [facility] [address] [place] [address] Monocytes/100 WBC (Bld) 5.0 % Normal 2.0-10.0 [facility] Comment on above: Performed By: #### P T/AP, BMP3, HEMDF #### [facility] [address] [place] [address] Platelet mean volume (Bld) [Entitic vol] 8.9 fL Normal 7.4-12.4 [facility] Comment on above: Result Comment: MPV is a calculated measurement using platelet volume ratio. Performed By: #### P T/AP, BMP3, HEMDF #### [facility] [address] [place] [address] Platelets (Bld) [#/Vol] 132 10*3/uL Low 140-440 [facility] Comment on above: Performed By: #### P T/AP, BMP3, HEMDF #### [facility] [address] [place] [address] RBC (Bld) [#/Vol] 3.96 10*6/uL Normal 3.80-5.20 [facility] Comment on above: Performed By: #### P T/AP, BMP3, HEMDF #### [facility] [address] [place] [address] WBC (Bld) [#/Vol] 8.7 10*3/uL Normal 3.6-10.7 [facility] Comment on above: Performed By: #### P T/AP, BMP3, HEMDF #### [facility] [address] [place] [address] Lactate, Sepsison 03-08-2022 Lactate [Moles/Vol] 1.7 mmol/L 0.7 - 2 mmol/L [facility] Test Performed by [facility], [address] [place], [place] [address] [facility] Lactic Acid, Sepsison 2021 Lactate [Moles/Vol] 1.7 mmol/L Normal 0.7-2.0 [facility] Comment on above: Performed By: #### P T/AP, BMP3, HEMDF #### [facility] [address] [place] [address] POCT GlucoseOrdered By: Jossy Moncada on 03-08-2022 Glucose [Mass/Vol] 112 mg/dL High 70 - 100 mg/dL [facility] Work Phone: Comment on above: Test performed by ucose meter. Results may be 10%-15% lower than serum/plasma values. (CLIA ID [id number]) Interpretation and review of laboratory results Abnormal [facility] Work [facility]: [facility] Work Phone: POCT Glucoseon 03-08-2022 Test Performed by [facility], [address] [place], [place], [place] [address] [facility] Test Performed by [facility], [address] [place], [place], [place] [address] [facility] POCT GlucoseOrdered By: Yaakov Whitehead on 03-08-2022 Glucose [Mass/Vol] 81 mg/dL 70 - 100 mg/dL [facility] Work Phone: Comment on above: Test performed by gl ucose meter. Results may be 10%-15% lower than serum/plasma values. (CLIA ID [id number]) [facility] Work Phone: Prothrombin Timeon 2 INR 2.3 High 0.9-1.1 [facility] Comment on above: Result Comment: Rajiv mmended [...] By: #### P T/AP, BMP3, HEMDF #### [facility] [address] [place] [address] PT Coag (PPP) [Time] 23.8 s High 9.0-12.0 [facility] Comment on above: Result Comment: . Performed By: #### P T/AP, BMP3, HEMDF #### [facility] [address] [place] [address] Protime-INRon 03-08-2022 INR Coag (Bld) [Relative time] 2.3 {INR} High [facility] Comment on above: Recommended Anticoag ulant Therapy: [...] Comment on above: . Test Performed by [facility], [address] [place], [address] [facility] Urinalysison 03-08-2022 Appearance (U) Turbid [...] /[HPF] [facility] Comment on above: . Specific Monarch, Urine 1.014 [facility] Comment on above: . Squam Epithel, UA 0-2 3 - 5 /[HPF] [facility] Comment on above: . Urobilinogen, Urine Normal Normal (0-1) mg/dL [facility] Comment on above: . WBC, UA /[HPF] Abnormal 0 - 5 /[HPF] [facility] Comment on above: . Test Performed by [facility], [address] [place], [address] [facility] XR ANKLE LEFT (MIN 3 VIEWS)o n 03-08-2022 [facility]: [id number] ACCESSION EXAM DATE/TIME PROCEDURE ORDERING PROVIDER [id number] 03/08/2022 16:53 EDT CR Ankle 3+ Views Left JOHN LEZAMA LOUANN B CPT code 00326 Reason For Exam (CR Ankle 3+ Views [...] arterial atherosclerotic changes. Report Dictated on Workstation: Hop Skip Connect --- Final --- Dictating Physician: HARPER ANTONIO DO, I Signed Date and Time: 03/08/2022 5:15 pm Signed by: HARPER ANTONIO DO, I Transcribed Date and Time: 03/08/2022 5:16 Harper Patel DO - 03/08/2022 [id number] Radiology ACCESSION EXAM DATE/TIME PROCEDURE ORDERING PROVIDER [id number] 03/08/2022 16:53 EDT CR Ankle 3+ Views Left JOHN LEZAMA LOUANN B CPT code 68876 Reason For Exam (CR Ankle 3+ Views [...] arterial atherosclerotic changes. Report Dictated on Workstation: [employer] --- Final --- Dictating Physician: HARPER ANTONIO DO, I Signed Date and Time: 03/08/2022 5:15 pm Signed by: BO DO, HARPER I Transcribed Date and Time: 03/08/2022 5:16 [employer] Work Phone: Radiology Study observation (narrative) [employer] Work Phone: XR ANKLE LEFT (MIN 3 VIEWS)O rdered By: Harper Antonio on 03-08-2022 [facility] Work [facility]: PT panel Coag (PPP)on 2021 INR Coag (Bld) [Relative time] 2.3 (EXT) 2.0 - 3.[address] [facility] INRon 10-29-2021 INR Coag (Bld) [Relative time] [facility] PT panel Coag (PPP)on 2021 INR Coag (Bld) [Relative time] 2.1 {INR} [facility] DXA-AXIAL SKELETONon [address] [facility] PT panel Coag (PPP)on 2021 INR Coag (Bld) [Relative time] 2.1(EXT) 2.0 - 3.[address] [facility] PT panel Coag (PPP)on 2021 INR Coag (Bld) [Relative time] 2.6(EXT) 2.0 - 3.[address] [facility] PT panel Coag (PPP)on 2021 INR Coag (Bld) [Relative time] 2.2 (ext) [facility] Basophil percentageon 2021 Bilirubin [Mass/Vol] 0.40 mg/dL 0.20-1.00 [facility] Work Phone: Comment on above: For patients on eltr ombopag therapy, use of Dimension Zullinger TBIL is not recommended. Cholesterol [Mass/Vol] 142 mg/dL <[address] [facility] Comment on above: <200 mg/dL Desirable 200-240 mg/dL Borderline >240 mg/dL High Risk Protein [Mass/Vol] 7.5 g/dL 6.4-8.2 [facility] Work Phone: Triglyceride [Mass/Vol] 156 mg/dL [facility] Comment on above: The drugs N-Acetylcy steine and Metamizole may falsely depress this assay.Serum Triglycerides Reference Interval Normal <150 mg/dL Borderline high 150 - 199 mg/dL High 200 - 499 mg/dL Very High > or = 500 mg/dL Direct bilirubinon 2 Bilirubin.direct [Mass/Vol] 0.12 mg/dL 0.00-0.30 [facility] Work Phone: LIPID PANEL (EXTERNAL)on HDC-L 41 mg/dL 41 mg/dL [facility] LDL Chol, calculated 31 MG/DL 130 MG/DL [facility] Laboratory - Chemistry and C hemistry - challengeon 09-16-2021 ALP [Catalytic activity/Vol] 58 U/L 45-117 [facility] Work Phone: ALT [Catalytic activity/Vol] 18 U/L 13-56 [facility] Work Phone: Globulin (S) [Mass/Vol] 4.1 g/dL 2.2-4.2 [facility] Work Phone: MICROALBUMIN/CREATININE UR W RATIO (EXTERNAL)on 09-16-2021 Albumin/Creat Ratio 9.4 [facility] Creatinine Urine [address] [facility] Microalbumin, Random urine 14.[address] [facility] No Panel Informationon 09-16 Urine Microalbumin/Creati nine Ratio 9.4 mg/g CRE <30 [facility] Work Phone: Serum or plasma albumin aura urement (mass/volume)on 09-16-2021 Albumin [Mass/Vol] 3.4 g/dL 3.2-5.0 [facility] Work Phone: Serum or plasma cholesterol in HDL measurement (mass/volume)on 09-16-2021 Cholesterol in HDL [Mass/Vol] 41 mg/dL [facility] Work Phone: Comment on above: The drugs N-Acetylcy steine and Metamizole may falsely depress this assay. Reference Range HDL <40 mg/dL Low HDL Cholesterol HDL >or= 60 mg/dL High HDL Cholesterol Serum or plasma cholesterol in VLDL measurement (mass/volume)on 09-16-2021 Cholesterol in VLDL [Mass/Vol] 31 mg/dL 5-40 [facility] Work Phone: Serum or plasma low density lipoprotein (LDL) cholesterol measurement (mass/volume)on 09-16-2021 Cholesterol in LDL [Mass/Vol] 70 mg/dL 0-130 [facility] Work Phone: Thin prep Papanicolaou smear with manual screeningon 09-16-2021 Thin prep Papanicolaou smear with manual screening 22 U/L 15-37 [facility] Work Phone: Thin prep Papanicolaou smear with manual screening 14.9 mg/L NO RANGE EST. [facility] Work Phone: Urine creatinine measurement (mass/volume)on 09-16-2021 Creatinine (U) [Mass/Vol] 158.00 mg/dL NO RANGE EST. [facility] Work Phone: PT panel Coag (PPP)on 2021 INR Coag (Bld) [Relative time] 1.9 (EXT) 2.0 - 3.[address] [facility] XR Shoulder - right 3 Viewso n 01-29-2021 IMPRESSION: 1. Stable mild acromioclavicular degenerative changes. Membership Sales Representative: PSCB Transcribe Date/Time: Jan 29 2021 2:19P Dictated by : MIN GARCIA MD This examination was interpreted and the report reviewed and electronically signed by: MIN GARCIA MD on Jan 29 2021 2:21PM [facility] DIVISION OF RADIOLOGY * * *Final Report* [...] mild hypertrophic osteoarthrosis. DIVISION OF RADIOLOGY Provider, Suha Castro - 01/29/2021 * * *Final Report* * [...] IMPRESSION: 1. Stable mild acromioclavicular degenerative changes. Membership Sales Representative: PSCB Transcribe Date/Time: Jan 29 2021 2:19P Dictated by : MIN GARCIA MD This examination was interpreted and the report reviewed and electronically signed by: MIN GARCIA MD on Jan 29 2021 2:21PM EST [facility] Radiology Study observation (narrative) [facility] XR Shoulder - right 3 ViewsO rdered By: Ccf Provider on 01-29-[address] [facility] CNOVon 08-12-2017 CNOV Office Visit (AGCARDWST) -RANDOLPH HUNTER ([id number]) 1950 FDate Time Provider Department08/12/17 1:00 PM [...] - metBeta nisha for ASHD with prior NE or prior LVEFANDlt;40 (NQF 0070) - metBeta [...] with treatment plan.This note was generated using [employer] voice recognition system, and there may besome [...] daily. Rinse mouth after use.blood sugar diagnostic (Dualog ULTRA TEST) test strip Use as instructed [...] of metoprolol.Electronically Signed:David Erwin MDFebruary 2017 1:17 [facility]: Lin Ashley MD 08/12/2017 1:17 PM SignedLIFESTYLE [...] programs in your area.Referring Provider: DAVID ERWIN [[id number]]Allergies As of Date: 08/12/2017 Noted Allergy ReactionPHENERGAN [...] [I10]Order(s):metoprolol succinate ER (TOPROL XL) 100 mg He60Uxxj 1 tablet by mouth once daily.Disp: 90 [...] the following areas and commit to making snf changes. EAT A WHOLE FOOD, PLANT BASED [...] SmartForms filed during this visit:Extended VitalsEncounter Number: [id number] Status:Closed by DAVID ERWIN MD on 08/12/17 [facility] PROGRESSon 08-12-2017 PROGRESS HNO ID: [id number] thor: David Raya: (none)Author Type: PhysicianType: Progress [...] - metBeta nisha for ASHD with prior NE or prior LVEF<40 (NQF 0070) - metBeta [...] with treatment plan.This note was generated using [employer] recognition system, and theremay be some incorrect [...] of metoprolol.Electronically Signed:David Erwin MDFebruary 2017 1:17 [facility]: Vishnu Coleman MD [facility] OBSOLETEon 04-06-2017 OBSOLETE Refill (AGCARDWST) -RANDOLPH HUNTER ([id number]) 1950 FDate Time Provider Qyhkxhhusc41/16/17 DAVID ERWIN During your visit today, we recorded the following information about you:Gui Gallego RN, RN 04/06/2017 1:59 PM SignedPatient phones requesting refills as follows:Pending Prescriptions Disp Refills METOPROLOL SUCCINATE ER 50 MG TABLET,EXTENDED RELEASE 24 HR 135 tablet 3 Sig: Take 1.5 tablets by mouth once daily. IRA: No Please review and advise.Gui BarnesyangFeng petersen has been identified by name and date [...] Status:Closed by GUI GALLEGO on 04/06/[address] [facility] Vital Signs Date Time Vital Sign Value Performing Clinician Zack goncalves 10-10-2024 13:29-0400 Body temperature 96.8 [degF] Travis Patterson APRN.CNP Work Phone: [facility] 10-10-2024 13:29-0400 Diastolic blood pressure 57 mm[Hg] Travis Patterson APRN.SMOKE EATER Work Phone: [facility] 10-10-2024 13:29-0400 Heart rate 66 /min Travis Patterson APRN.SMOKE EATER Work Phone: [facility] 10-10-2024 13:29-0400 Respiratory rate 16 /min Travis Patterson APRN.SMOKE EATER Work Phone: [facility] 10-10-2024 13:29-0400 SaO2% (BldA) [Mass fraction] 97 % Travis Patterson APRN.SMOKE EATER Work Phone: [facility] 10-10-2024 13:29-0400 Systolic blood pressure 120 mm[Hg] Travis Patterson APRN.SMOKE EATER Work Phone: [facility] 10-05-2024 16:09-0400 Body temperature 97.81 [degF] Travis Patterson APRN.SMOKE EATER Work Phone: [facility] 10-05-2024 16:09-0400 Diastolic blood pressure 71 mm[Hg] Travis Patterson APRN.SMOKE EATER Work Phone: [facility] 10-05-2024 16:09-0400 Heart rate 64 /min Travis Helbert TORCH OPERATOR.SMOKE EATER Work Phone: [facility] 10-05-2024 16:09-0400 Respiratory rate 19 /min Travis Helbert TORCH OPERATOR.SMOKE EATER Work Phone: [facility] 10-05-2024 16:09-0400 SaO2% (BldA) [Mass fraction] 96 % Travis Helbert TORCH OPERATOR.SMOKE EATER Work Phone: [facility] 10-05-2024 16:09-0400 Systolic blood pressure 122 mm[Hg] Travis Helbert TORCH OPERATOR.SMOKE EATER Work Phone: [facility] 09-30-2024 13:29-0400 Body temperature 97.3 [degF] Travis Helbert TORCH OPERATOR.SMOKE EATER Work Phone: [facility] 09-30-2024 13:29-0400 Diastolic blood pressure 64 mm[Hg] Travis Helbert TORCH OPERATOR.SMOKE EATER Work Phone: [facility] 09-30-2024 13:29-0400 Heart rate 69 /min Travis Helbert TORCH OPERATOR.SMOKE EATER Work Phone: [facility] 09-30-2024 13:29-0400 Respiratory rate 18 /min Travis Helbert TORCH OPERATOR.SMOKE EATER Work Phone: [facility] 09-30-2024 13:29-0400 SaO2% (BldA) [Mass fraction] 97 % Travis Helbert TORCH OPERATOR.SMOKE EATER Work Phone: [facility] 09-30-2024 13:29-0400 Systolic blood pressure 124 mm[Hg] Travis Helbert TORCH OPERATOR.SMOKE EATER Work Phone: [facility] 07-09-2024 23:24-0500 Diastolic blood pressure 66 mm[Hg] BETY Jha MD Work Phone: [facility] 07-09-2024 23:24-0500 Heart rate 96 /min BETY Jha MD Work Phone: [facility] 07-09-2024 23:24-0500 Respiratory rate 20 /min BETY Jha MD Work Phone: [employer] 07-09-2024 23:24-0500 SaO2% (BldA) [Mass fraction] 98 % BETY Jha MD Work Phone: [employer] 07-09-2024 23:24-0500 Systolic blood pressure 99 mm[Hg] BETY Jha MD Work Phone: [employer] 07-09-2024 23:21-0500 Body height 157.5 cm BETY Jha MD Work Phone: [employer] 07-09-2024 23:21-0500 Body mass index (BMI) [Ratio] 39.14 kg/m2 BETY Jha MD Work Phone: [employer] 07-09-2024 23:21-0500 Body temperature 98.4 [degF] BETY Jha MD Work Phone: [employer] 07-09-2024 23:21-0500 Body weight 97.07 kg BETY Jha MD Work Phone: [employer] 02-10-2024 10:43-0400 Body temperature 97.7 [degF] Isaac Brian DO Work Phone: [facility] 01-27-2024 12:59-0400 Body temperature 97.11 [degF] Isaac Brian DO Work Phone: [employer] 01-27-2024 12:59-0400 Diastolic blood pressure 76 mm[Hg] Isaac Brian DO Work Phone: [employer] 01-27-2024 12:59-0400 Heart rate 72 /min Isaac Brian DO Work Phone: [employer] 01-27-2024 12:59-0400 Respiratory rate 18 /min Isaac Brian DO Work Phone: [employer] 01-27-2024 12:59-0400 Systolic blood pressure 126 mm[Hg] Isaac Brian DO Work Phone: [employer] 01-20-2024 14:26-0400 Body height 157.5 cm Isaac Brian DO Work Phone: [employer] 01-20-2024 14:26-0400 Body mass index (BMI) [Ratio] 38.96 kg/m2 Isaac Chicas DO Work Phone: [facility] 01-20-2024 14:26-0400 Body temperature 97.2 [degF] Isaac Chicas DO Work Phone: [facility] 01-20-2024 14:26-0400 Body weight 96.62 kg Isaac Chicas DO Work Phone: [facility] 01-20-2024 14:26-0400 Diastolic blood pressure 70 mm[Hg] Isaac Chicas DO Work Phone: [facility] 01-20-2024 14:26-0400 Heart rate 79 /min Isaac Chicas DO Work Phone: [facility] 01-20-2024 14:26-0400 Respiratory rate 18 /min Isaac Chicas DO Work Phone: [facility] 01-20-2024 14:26-0400 Systolic blood pressure 112 mm[Hg] Isaac Chicas DO Work Phone: [facility] 12-15-2023 22:15-0400 Diastolic blood pressure 57 mm[Hg] Gloria Bangura DO Work Phone: [employer] 12-15-2023 22:15-0400 Heart rate 64 /min Gloria Willem DO Work Phone: [employer] 12-15-2023 22:15-0400 Respiratory rate 16 /min Gloria Willem DO Work Phone: [employer] 12-15-2023 22:15-0400 SaO2% (BldA) [Mass fraction] 98 % Gloria Willem DO Work Phone: [employer] 12-15-2023 22:15-0400 Systolic blood pressure 137 mm[Hg] Gloria Willem DO Work Phone: [employer] 12-15-2023 18:24-0400 Body height 165.1 cm Gloria Bangura DO Work Phone: [employer] 12-15-2023 18:24-0400 Body mass index (BMI) [Ratio] 35.45 kg/m2 Gloriajasvir Bangura DO Work Phone: [employer] 12-15-2023 18:24-0400 Body temperature 97.3 [degF] Gloria Bangura DO Work Phone: [employer] 12-15-2023 18:24-0400 Body weight 96.62 kg Gloriajasvir Bangura DO Work Phone: [facility] 07-20-2023 06:46-0500 Diastolic blood pressure 67 mm[Hg] Cuba Anna MD Work Phone: [employer] 07-20-2023 06:46-0500 Heart rate 63 /min Cuba Anna MD Work Phone: [employer] 07-20-2023 06:46-0500 Respiratory rate 16 /min Cuba Anna MD Work Phone: [employer] 07-20-2023 06:46-0500 SaO2% (BldA) [Mass fraction] 97 % Cuba Anna MD Work Phone: [employer] 07-20-2023 06:46-0500 Systolic blood pressure 148 mm[Hg] Cuba Anna MD Work Phone: [employer] 07-19-2023 18:50-0500 Body height 157.5 cm Cuba Anna MD Work Phone: [employer] 07-19-2023 18:50-0500 Body mass index (BMI) [Ratio] 43.71 kg/m2 Cuba Anna MD Work Phone: [employer] 07-19-2023 18:50-0500 Body temperature 98.01 [degF] Cuba Anna MD Work Phone: [employer] 07-19-2023 18:50-0500 Body weight 108.41 kg Cuba Anna MD Work Phone: [facility] 09-06-2022 10:13-0400 Diastolic blood pressure 75 mm[Hg] Linden Fuentes MD Work Phone: [facility] 09-06-2022 10:13-0400 Heart rate 69 /min Linden Fuentes MD Work Phone: [facility] 09-06-2022 10:13-0400 Respiratory rate 15 /min Linden Fuentes MD Work Phone: [facility] 09-06-2022 10:13-0400 SaO2% (BldA) [Mass fraction] 100 % Linden Fuentes MD Work Phone: [facility] 09-06-2022 10:13-0400 Systolic blood pressure 143 mm[Hg] Linden Fuentes MD Work Phone: [facility] 09-06-2022 05:33-0400 Body temperature 98.2 [degF] Linden Fuentes MD Work Phone: [facility] 03-12-2022 19:37-0400 Body temperature 98.71 [degF] BETY Jha MD Work Phone: [facility] 03-12-2022 19:37-0400 Diastolic blood pressure 68 mm[Hg] BETY Jha MD Work Phone: [facility] 03-12-2022 19:37-0400 Heart rate 73 /min BETY Jha MD Work Phone: [facility] 03-12-2022 19:37-0400 Respiratory rate 16 /min BETY Jha MD Work Phone: [facility] 03-12-2022 19:37-0400 SaO2% (BldA) [Mass fraction] 97 % BETY Jha MD Work Phone: [facility] 03-12-2022 19:37-0400 Systolic blood pressure 151 mm[Hg] BETY Jha MD Work Phone: [facility] 03-08-2022 20:15-0400 Body height 165.1 cm BETY Jha MD Work Phone: [facility] 03-08-2022 11:49-0400 Body mass index (BMI) [Ratio] 35.45 kg/m2 BETY Jha MD Work Phone: [facility] 03-08-2022 11:49-0400 Body weight 96.62 kg BETY Jha MD Work Phone: [facility] 09-26-2021 11:23-0400 Body weight 99.34 kg Baudilio Sultana MD Work Phone: [facility] 09-26-2021 11:23-0400 Diastolic blood pressure 72 mm[Hg] Baudilio Sultana MD Work Phone: [facility] 09-26-2021 11:23-0400 Heart rate 68 /min Baudilio Sultana MD Work Phone: [facility] 09-26-2021 11:23-0400 Systolic blood pressure 142 mm[Hg] Baudilio Sultana MD Work Phone: [facility] Encounters Encounter Date Encounter Type Care Provider Facility Start: 01-03-[address] Facility:[facility] Start: 01-02-2025 ambulatory Min ALBRCEHT Facil ity:[facility] Start: 12-19-2024 ambulatory Min ALBRECHT Facil ity:[facility] Start: 12-06-2024 End: 12-06-2024 ambulatory GILMER COTTON Facility:[facility] Start: 12-05-2024 ambulatory Min ALBRECHT Facil ity:[facility] Start: 11-08-2024 ambulatory STEVEN Fuentesi ty:[id number] Start: 11-04-2024 End: 11-04-2024 ambulatory GILMER COTTON Facility:[facility] Start: 11-01-2024 End: 01-01-2025 Follow-up encounter Steven Pelaez Work Phone: Podiatry Start: 10-27-2024 ambulatory STEVEN Fuentesi ty:[facility] Start: 10-27-2024 End: 10-27-2024 Subsequent hospital visit by physician Xr [facility] Work Phone: Radiology Comment on above: Sprain of left ankle , unspecified ligament, initial encounter [S93.402A] Start: 10-27-2024 End: 10-27-2024 Patient encounter procedure Steven Pelaez Work Phone: Podiatry Comment on above: Sprain of left ankle , unspecified ligament, initial encounter (Primary Dx); Ankle instability, left; Chronic pain of left ankle Start: 10-27-2024 End: 10-27-2024 ambulatory STEVEN PELAEZ Facility:[facility] Start: 10-19-2024 End: 10-19-2024 Patient encounter procedure Mendel Sharma PA-C Work Phone: Orthopaedics Comment on above: Primary osteoarthrit is of left knee (Primary Dx) Start: 10-19-2024 End: 10-19-2024 ambulatory MENDEL SHARMA Facility:[facility] Start: 10-10-2024 End: 10-10-2024 ambulatory Travis Patterson APRAliceSMOKE EATER Work Phone: [facility] Comment on above: Fall at home, initia l encounter (Primary Dx); Cerebral palsy, unspecified type (HCC); Brachial neuritis or radiculitis; Acute pain of right shoulder; Left knee pain, unspecified chronicity; Diabetic polyneuropathy associated with type 2 diabetes mellitus (HCC); Neuropathy; Type 2 diabetes, controlled, with neuropathy (HCC); Atherosclerosis of [place] coronary artery of [place] heart without angina pectoris; Other pulmonary embolism without acute cor pulmonale, unspecified chronicity (HCC); Debility Start: 10-10-2024 End: 10-10-2024 Telemedicine consultation with patient Travis Patterson APRN.SMOKE EATER Work Phone: [facility] Start: 10-05-2024 End: 10-05-2024 ambulatory Travis Patterson APRN.SMOKE EATER Work Phone: [facility] Comment on above: Fall at home, initia l encounter (Primary Dx); Cerebral palsy, unspecified type (HCC); Brachial neuritis or radiculitis; Acute pain of right shoulder; Left knee pain, unspecified chronicity; Diabetic polyneuropathy associated with type 2 diabetes mellitus (HCC); Type 2 diabetes, controlled, with neuropathy (HCC); Neuropathy; Atherosclerosis of [place] coronary artery of [place] heart without angina pectoris; Other pulmonary embolism without acute cor pulmonale, unspecified chronicity (HCC); Debility Start: 10-05-2024 End: 10-05-2024 Telemedicine consultation with patient Travis Patterson APRN.SMOKE EATER Work Phone: [facility] Start: 09-30-2024 End: 09-30-2024 ambulatory Travis Patterson APRN.SMOKE EATER Work Phone: [facility] Comment on above: Fall at home, initia l encounter (Primary Dx); Cerebral palsy, unspecified type (HCC); Brachial neuritis or radiculitis; Acute pain of right shoulder; Left knee pain, unspecified chronicity; Diabetic polyneuropathy associated with type 2 diabetes mellitus (HCC); Neuropathy; Type 2 diabetes, controlled, with neuropathy (HCC); Atherosclerosis of [place] coronary artery of [place] heart without angina pectoris; Other pulmonary embolism without acute cor pulmonale, unspecified chronicity (HCC); Debility Start: 09-30-2024 End: 09-30-2024 Telemedicine consultation with patient Travis Patterson APRN.SMOKE EATER Work Phone: [facility] Start: 09-21-2024 End: 09-21-2024 ambulatory GILMER COTTON Facility:[facility] Start: 09-18-2024 End: 09-28-2024 ambulatory RAF CASEY Facility:[facility] Start: 09-18-2024 End: 09-18-2024 Emergency department patient visit RAF CASEY Facility:[facility] Start: 09-02-2024 End: 09-02-2024 ambulatory GILMER COTTON Facility:[facility] Start: 08-05-2024 End: 08-05-2024 ambulatory GILMER Bojorquez [place] Facility:[facility] Start: 07-09-2024 End: 07-09-2024 Subsequent hospital visit by physician [facility] Xr Portable [facility] Radiology Comment on above: Arrived Start: 07-09-2024 End: 07-10-2024 Emergency department patient visit Александр Jha MD Work Phone: [facility] ED Comment on above: Acute cough (Primary Dx) Start: 06-30-2024 End: 06-30-2024 ambulatory GILMER Bojorquez [place] Facility:[facility] Start: 05-02-2024 End: 05-02-2024 ambulatory [facility] Facility:[facility] Start: 03-04-2024 End: 03-04-2024 ambulatory [facility] Facility:[facility] Start: 02-10-2024 End: 02-10-2024 Office outpatient visit 10 minutes Isaac Chicas DO Work Phone: [facility] WND OSTOMY HBO Comment on above: Pressure ulcer of ri ght foot, stage 3 (HCC) (Primary Dx) Start: 02-10-2024 End: 02-10-2024 ambulatory [facility] Start: 01-29-2024 End: 01-29-2024 ambulatory [facility] Facility:[facility] Start: 01-27-2024 End: 01-27-2024 Subsequent hospital visit by physician Isaac Chicas DO Work Phone: [facility] WND [facility]STOM[facility] HBO Comment on above: Pressure ulcer of ri ght foot, stage 3 (HCC) (Primary Dx) Start: 01-27-2024 End: 01-27-2024 ambulatory [facility] Start: 01-20-2024 End: 01-20-2024 Office outpatient new 30 minutes Isaac Chicas DO Work Phone: [facility] WND [facility]STOM[facility] Comment on above: Pressure ulcer of ri ght foot, stage 3 (HCC) (Primary Dx) Start: 01-20-2024 End: 01-20-2024 ambulatory [facility] Start: 12-25-2023 End: 12-25-2023 ambulatory [facility] Facility:[facility] Start: 12-15-2023 End: 12-15-2023 Subsequent hospital visit by physician [facility] Xr Portable [facility] Radiology Comment on above: Arrived Start: 12-15-2023 End: 12-16-2023 Emergency department patient visit Gloria Bangura DO Work Phone: [facility] ED Comment on above: Diabetic ulcer of le ft foot associated with diabetes mellitus due to underlying condition, unspecified part of foot, unspecified ulcer stage (HCC) (Primary Dx); Left leg cellulitis Start: 07-19-2023 End: 07-19-2023 Subsequent hospital visit by physician [facility] Ct Exam Room [address] [facility] [address] Comment on above: Arrived Start: 07-19-2023 End: 07-19-2023 Emergency department patient visit UCBA ANNA [facility] Start: 07-19-2023 End: 07-20-2023 Emergency department patient visit Cuba Anna MD Work Phone: [facility] ED Comment on above: Frequent falls (Prim liv Dx); Right hip pain; Contusion of right knee, initial encounter; Osteoarthritis, unspecified osteoarthritis type, unspecified site Start: 05-04-2023 Orders Only Chasidy Heredia MA [facility] [place] Start: 09-06-2022 End: 09-07-2022 Emergency department patient visit LINDEN FUENTES [facility] Start: 09-06-2022 End: 09-06-2022 Subsequent hospital visit by physician [facility] Ed Xr Portable [facility] X-Ray Comment on above: Arrived Start: 09-06-2022 End: 09-06-2022 Emergency department patient visit Linden Fuentes MD Work Phone: [facility] EMERGENCY DEPT Comment on above: Fall, initial encoun ter (Primary Dx) Start: 04-15-2022 Telephone encounter Baudilio Sultana MD Work Phone: [facility] Comment on above: Insurance Authorizat ion Start: 03-08-2022 End: 03-13-2022 Evaluation and management of inpatient J Candida Jha MD Work Phone: [facility] 1E MED SURG Comment on above: Diabetic ulcer [...] Nursing evaluation of patient and report Nurse/Benigno [facility] Work Phone: Podiatry Comment on above: Diabetic ulcer of to e 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, with fat layer exposed (HCC) (Primary Dx) Start: 02-26-2022 Telephone encounter Steven Madison Work Phone: Podiatry Comment on above: Patient Question Start: 02-12-2022 ambulatory Steven xavier Work Phone: Podiatry Comment on above: xray results Start: 02-12-2022 E-mail encounter fro m caregiver Stevenpepper Pelaez Work Phone: [facility] Start: 02-10-2022 End: 02-10-2022 Subsequent hospital visit by physician Xr [facility] [place] [facility] Work Phone: Radiology Comment on above: Diabetic [...] Baudilio Sultana MD Work Phone: Internal [facility] [place] Start: 11-26-2021 Telephone encounter Baudilio Sultana MD Work Phone: [facility] [place] Comment on above: Anticoagulation Start: 11-19-2021 Telephone encounter Baudilio Sultana MD Work Phone: [facility] [place] Comment on above: Anticoagulation Start: 11-05-2021 Telephone encounter Baudilio Sultana MD Work Phone: [facility] [place] Comment on above: Anticoagulation Start: 10-30-2021 Telephone encounter Baudilio Sultana MD Work Phone: [facility] [place] Comment on above: Anticoagulation Start: 10-15-2021 Telephone encounter Baudilio Sultana MD Work Phone: [facility] [place] Comment on above: Anticoagulation Start: 10-14-2021 ambulatory Baudilio Sultana MD Work Phone: [facility] [place] Comment on above: Question regarding C arotid Dup Dustin OP Start: 10-14-2021 End: 10-14-2021 Subsequent hospital visit by physician Bone Density [facility] Work Phone: Radiology Comment on above: Disorder of bone and cartilage [M89.9, M94.9] Start: 10-08-2021 Telephone encounter Baudilio Sultana MD Work Phone: [facility] [place] Comment on above: Anticoagulation Refill Request Start: 10-01-2021 Telephone encounter Baudilio Sultana MD Work Phone: [facility] [place] Comment on above: Patient Question; Or ders Anticoagulation Start: 09-27-2021 Telephone encounter Baudilio Sultana MD Work Phone: [facility] [place] Comment on above: Results Start: 09-26-2021 End: 09-26-2021 Patient encounter procedure Baudilio Sultana MD Work Phone: [facility] [place] Comment on above: Cerebral palsy, unsp ecified [...] Medicine [place] Comment on above: Anticoagulation Start: 09-18-2021 Telephone encounter Baudilio Sultana MD Work Phone: [facility] [place] Comment on above: Anticoagulation Start: 09-16-2021 Chart abstracting [facility]ilio Pretty [facility] Start: 09-16-2021 End: 09-16-2021 Patient encounter procedure [facility] Start: 2021 Telephone encounter Baudilio Sultana MD [facility] Comment on above: Anticoagulation Start: 01-29-2021 End: 01-29-2021 Subsequent hospital visit by physician Xr [facility] [place] Work Phone: Radiology Comment on above: Chronic right should er pain [M25.511, G89.29] Start: 04-12-2018 Ambulatory DAVID ERWIN Facility :[facility] Start: 08-12-2017 End: 08-12-2017 [facility] Procedures Date Procedure Procedure Detail Performing Clinician Start: 10-19-2024 Arthrocentesis aspir &/inj major jt/bursa w/o Mendel Sharma PA-C Work Phone: Start: 07-09-2024 Radiologic exam ches t single view J Candida Jha MD Work Phone: Start: 01-27-2024 Debridement subcutan eous tissue 20 sq cm/< Isaac J Brian DO Work Phone: Start: 01-20-2024 Debridement subcutan eous tissue 20 sq cm/< Isaaccirilo Chicas DO Work Phone: Start: 12-15-2023 Radex foot complete minimum 3 views Gloria Bangura DO Work Phone: Start: 12-15-2023 End: 12-15-2023 Bacteria identified in Blood by Culture Gloria Bangura DO Work Phone: Start: 12-15-2023 Basic metabolic pane l calcium total Gloria Bangura DO Work Phone: Start: 12-15-2023 C-reactive protein Tj Bangura DO Work Phone: Start: 07-19-2023 End: 07-19-2023 [...] ast 12 lds trcg only w/o i&r Delcheri Ragland MD Work Phone: Start: 09-06-2022 End: [...] use Kushal Gaines DO Work Phone: Start: 03-12-2022 Gluc bld gluc mntr d ev cleared fda spec home use Kushal Gaines DO Work Phone: Start: 03-12-2022 Iadna-dna/rna gi pth gn multiplex probe tq 06-15 Rose Goodman MD Work Phone: Start: 03-12-2022 Prothrombin time Eric Edge MD Work Phone: Start: 03-12-2022 End: 03-12-2022 Gluc bld gluc mntr dev cleared fda spec home use Александр Jha MD Work Phone: Start: 03-11-2022 Gluc bld gluc mntr d ev cleared fda spec home use Kushal Gaines DO Work Phone: Start: 03-11-2022 Gluc bld gluc mntr d ev cleared fda spec home use Kushal Gaines DO Work Phone: Start: 03-11-2022 POCT COVID-19, ANTIGEN Katya Lezama TORCH OPERATOR - SMOKE EATER Work Phone: Start: 03-11-2022 Gluc bld gluc [...] Thyrotropin [Units/v olume] in Serum or Plasma [facility] 1 Start: 03-09-2022 BASIC METABOLIC PANE L W/ REFLEX TO MG FOR LOW K Katya Lezama TORCH OPERATOR - SMOKE EATER Work Phone: Start: 03-09-2022 Drug screen quantita tive vancomycin Kushal Gaines DO Work Phone: Start: 03-09-2022 Hemoglobin glycosylated a1c Katya Lezama TORCH OPERATOR - SMOKE EATER Work Phone: Start: 03-09-2022 PROTIME/INR & PTT Merritt Lezama TORCH OPERATOR - SMOKE EATER Work Phone: Start: 03-08-2022 Gluc bld gluc mntr d ev cleared fda spec home use Александр Jha MD Work Phone: Start: 03-08-2022 End: 03-08-2022 Gluc bld gluc mntr dev cleared fda spec home use Kushal Gaines DO Work Phone: Start: 03-08-2022 Radex ankle complete minimum 3 views Katya Lezama TORCH OPERATOR - SMOKE EATER Work Phone: Start: 03-08-2022 BEDSIDE SPIROMETRY Luizaua jun Lezama TORCH OPERATOR - SMOKE EATER Work Phone: Start: 03-08-2022 Culture bacterial quanttative colony count urine J Candida Jha MD Work Phone: Start: 03-08-2022 Urnls dip stick/tabl et rgnt auto w/o microscopy Александр Jha MD Work Phone: Start: 03-08-2022 Basic metabolic pane l calcium total Александр Jha MD Work Phone: Start: 03-08-2022 Culture bacterial bl ood aerobic w/id isolates J Candida Jha MD Work Phone: Start: 03-08-2022 CULTURE, [...] Start: 2021 PROTHROMBIN TIME/PT [facility] Provider Start: 08-10-2021 Radex shoulder compl ete minimum 2 views Baudilio Sultana MD Work Phone: Start: 03-29-2018 Mammography Baudilio Pretty MD Work Phone: Start: 01-04-2018 Colonoscopy Baudilio Pretty MD Work Phone: Plan of Treatment Date Care Activity Detail Author Start: 09-25-2025 Creatinine measurement Serum Creatin ine [facility] Start: 02-20-2025 Influenza vaccination [facility] Start: 12-14-2024 Complete blood count Hemoglobin/Jackson tocrit [facility] Start: 12-14-2024 Creatinine measurement Serum Creatin ine [facility] Start: 12-14-2024 Diabetes: Estimated Glomerular Filtration Rate for Kidney [facility] Diabetes: Estimated Glomerular Filtration Rate for Kidney [facility] Start: 12-07-2024 End: 12-07-2024 Patient encounter procedure 12/07/2024 3:40 PM EDT Office Visit Endocrinology [address] [id number] Ravi Michael MD [address] [place], [place] [id number] Diabetes Endocrinology Comment on above: Diabetes Start: 11-08-2024 End: 11-08-2024 Patient encounter procedure 11/08/2024 11:00 AM EDT Appointment MRI Scan [address] [place] [address] Chronic pain of left ankle [M25.572, G89.29 MRI Scan Comment on above: Chronic pain of left ankle [M25.572, G89.29 Start: 10-27-2024 End: 10-27-2024 Patient encounter procedure 10/27/2024 11:15 AM EDT Office Visit Podiatry [address] [place] [address] Steven Pelaez [address] [place] [address] left foot Podiatry Comment on above: left foot Start: 10-19-2024 End: 10-19-2024 Patient encounter procedure Orthopaedics Comment on above: Cerebral palsy with knee injury unable to stand pivot. Exam negative for laxity and patient going to [facility] for rehab Cerebral palsy with left knee injury unable to stand pivot Start: 06-22-2024 Advance Directive Discussion Advance Directive Discussion [facility] Start: 06-22-2024 Medicare Advantage Annual Wellness Visit Medicare Advantage Annual Wellness Visit [facility] Start: 02-21-2024 Covid-19 Vaccine () Covid-19 Vaccine () [facility] Start: 02-21-2024 Influenza vaccination [facility] Start: 02-03-2024 End: 02-03-2024 Patient encounter procedure 02/03/2024 10:00 AM EDT Appointment [facility]STOM[facility] [address] [place] [address] Isaac Chicas, DO [address] [place], [place] [address] [facility] Start: 01-27-2024 End: 01-27-2024 Patient encounter procedure 01/27/2024 1:15 PM EDT Appointment [facility] [address] [place] [address] Isaac Chicas, DO [address] [place] [address] [facility] Start: 06-22-2023 Advance Directive Discussion Advance Directive Discussion [facility] Start: 06-22-2023 Medicare Advantage Annual Wellness Visit Medicare Advantage Annual Wellness Visit [facility] Start: 03-09-2023 Hemoglobin A1c measurement Diabetes: Hemoglobin A1C [facility] Start: 03-09-2023 Thyroid stimulating hormone measurement TSH Level [facility] Start: 02-20-2023 Covid-19 Vaccine ( season) Covid-19 Vaccine () [facility] Start: 02-20-2023 COVID-19 Vaccine () COVID-19 Vaccine () [facility] Start: 02-20-2023 Influenza vaccination Influenza Vacc ine (#1) [facility] Start: 01-04-2023 Colonoscopy COLONOSCOPY [facility] Start: 01-04-2023 COLORECTAL CANCER SCREENING COLORECTAL CANCER SCREENING [facility] Start: 01-04-2023 Screening for malign ant neoplasm of colon [facility] Start: 09-26-2022 ANNUAL PCP TEAM SADDLE CUTTER DANYELLE DISEASE VISIT ANNUAL PCP TEAM CHRONIC DISEASE VISIT [facility] Start: 09-26-2022 Serum Creatinine Serum Creatinine Cl [facility] Start: 09-16-2022 Hepatitis B screening URINE ALBUMIN:CREATININE RATIO [facility] Start: 09-06-2022 Hemoglobin A1c measurement HbA1C [facility] Start: 09-06-2022 Hemoglobin A1c/Hemoglobin.total in Blood HBA1C [facility] Start: 06-24-2022 ANNUAL PCP TEAM SADDLE CUTTER DANYELLE DISEASE VISIT ANNUAL PCP TEAM CHRONIC DISEASE VISIT [facility] Start: 06-22-2022 ADVANCE DIRECTIVE DISCUSSION ADVANCE DIRECTIVE DISCUSSION [facility] Start: 04-18-2022 BP CONTROLLED (<130/80) BP CONTROLLE D (<130/80) [facility] Start: 04-12-2022 COVID-19 Vaccine (4 - Booster) COVID-19 Vaccine (4 - Booster) [facility] Start: 03-13-2022 End: 03-11-2023 Protime-INR Protime-INR Lab Routine PE (pulmonary thromboembolism) (HCC) Expected: 03/13/2022, Expires: 03/11/[address] [facility] Work Phone: Comment on above: Expected: 03/13/2022 , Expires: 03/11/2023 Start: 02-20-2022 Influenza vaccination C [facility] Start: 02-12-2022 Hemoglobin A1c/Hemoglobin.total in Blood HBA1C [facility] Start: 11-09-2021 3 comp foot exam completed DIABETIC FOOT EXAM [facility] Start: 11-09-2021 Diabetic foot examination Diabetic Foot Exam [facility] Start: 11-08-2021 End: 01-08-2022 Thyrotropin [Units/volume] in Serum or Plasma TSH BLD Lab Routine Acquired hypothyroidism Expected: 11/08/2021, Expires: 01/08/2022 [facility] Work Phone: Comment on above: Expected: 11/08/2021 , Expires: 01/08/2022 Start: 09-26-2021 End: 11-26-2021 Comprehensive metabolic 2000 panel - Serum or Plasma [facility] Work Phone: Comment on above: Expected: 09/26/2021 , Expires: 11/26/2021 Start: 09-26-2021 End: 11-26-2021 Thyrotropin [Units/volume] in Serum or Plasma [facility] Work Phone: Comment on above: Expected: 09/26/2021 , Expires: 11/26/2021 Start: 09-26-2021 End: 11-26-2021 VITAMIN B12 BLOOD [facility] Work Phone: Comment on above: Expected: 09/26/2021 , Expires: 11/26/2021 Start: 09-11-2021 Glaucoma screening Dilated Retinal E xam [facility] Start: 09-11-2021 Hepatitis C antibody , confirmatory test DILATED RETINAL EXAM [facility] Start: 08-29-2021 FECAL OCCULT BLOOD FECAL OCCULT BLOO D [facility] Start: 08-29-2021 Screening for malign ant neoplasm of colon Fecal Occult Blood [facility] Start: 08-01-2021 Hemoglobin A1c/Hemoglobin.total in Blood HBA1C [facility] Start: 07-11-2021 Hepatitis B screening URINE ALBUMIN:CREATININE RATIO [facility] Start: 06-22-2021 ADVANCE DIRECTIVE DISCUSSION ADVANCE DIRECTIVE DISCUSSION [facility] Start: 06-16-2021 COVID-19 VACCINE (5 - Booster) COVID-19 VACCINE (5 - Booster) [facility] Start: 03-21-2021 Hepatitis B surface antibody level LDL CHOLESTEROL [facility] Start: 03-29-[address] [facility] Start: 03-29-2019 Screening for malign ant neoplasm of breast Mammogram Screening [facility] Start: 12-26-2018 ADVANCE DIRECTIVE DISCUSSION ADVANCE DIRECTIVE DISCUSSION [facility] Start: 03-29-2017 DTaP/Tdap/Td Vaccine s (2 - Td or Tdap) DTaP/Tdap/Td Vaccines (2 - Td or Tdap) [facility] Start: 03-29-2017 Urine microalbumin profile [facility] Start: 09-06-2016 Pneumococcal Vaccine : 65+ Years (1 - PCV) Pneumococcal Vaccine: 65+ Years (1 - PCV) [facility] Start: 2016 BONE DENSITY BONE DENSITY [facility] Start: 05-26-2016 SHINGRIX VACCINE (2 of 3) SHINGRIX VACCINE (2 of 3) [facility] Start: 05-26-2016 Zoster Vaccines (2 o f 3) Zoster Vaccines (2 of 3) [facility] Start: 2011 Hepatitis B Vaccine (1 of 3 - Risk 3-dose series) Hepatitis B Vaccine (1 of 3 - Risk 3-dose series) [facility] Start: 2011 Hepatitis B Vaccines (1 of 3 - Risk 3-dose series) Hepatitis B Vaccines (1 of 3 - Risk 3-dose series) [facility] Start: 2011 RSV Immunization age d 60 or older (1 - 1-dose 60+ series) RSV Immunization aged 60 or older (1 - 1-dose 60+ series) [facility] Start: 2011 RSV Immunization for Adults (1 - Risk 60-74 years 1-dose series) RSV Immunization for Adults (1 - Risk 60-74 years 1-dose series) [facility] Start: 2011 RSV Vaccine (1 - 1-d ose 60+ series) RSV Vaccine (1 - 1-dose 60+ series) [facility] Start: 2011 RSV Vaccine (1 - Ris k 60-74 years 1-dose series) RSV Vaccine (1 - Risk 60-74 years 1-dose series) [facility] Start: 09-06-2001 Zoster Vaccines (1 o f 2) Zoster Vaccines (1 of 2) [facility] Start: 1996 COLOGUARD (FIT-DNA) COLOGUARD (FIT-D NA) [facility] Start: [address] COLONOGRAPHY [facility] Start: 1996 Screening for malign ant neoplasm of colon [facility] Start: 1996 SIGMOIDOSCOPY SIGMOIDOSCOPY [facility] Start: 09-07-1991 Screening for malign ant neoplasm of breast Mammogram [facility] Start: 1991 Screening for malign ant neoplasm of breast Mammogram [facility] Start: 09-06-1970 DTaP/Tdap/Td Vaccine s (1 - Tdap) DTaP/Tdap/Td Vaccines (1 - Tdap) [facility] Start: 1970 DTaP/Tdap/Td vaccine (1 - Tdap) DTaP/Tdap/Td vaccine (1 - Tdap) [facility] Start: 1970 Hepatitis A Vaccines (1 of 2 - Risk 2-dose series) Hepatitis A Vaccines (1 of 2 - Risk 2-dose series) [facility] Start: 09-06-1969 Hepatitis C screening Hepatitis C [facility] Start: 1969 Anxiety Screening Anxiety Screening [facility] Start: 1969 BP CONTROLLED (<130/80) BP CONTROLLE D (<130/80) [facility] Start: 1969 Diabetes: Urine Albumin-Creatinine Ratio for Kidney Health Diabetes: Urine Albumin-Creatinine Ratio for Kidney Health [facility] Start: 1969 Hepatitis C screening [facility] Start: 1963 Depression Monitoring Depression Mon itoring [facility] Start: 1963 Depression Screening Depression Scre ening [facility] Start: 1961 Diabetic foot examination Diabetes: Foot Exam [facility] Start: 1961 Glaucoma screening Diabetes: R etinopathy Screening [facility] Start: 1961 Preventive dental service Diabetes: Dental Exam [facility] Start: 03-09-1952 COVID-19 Vaccine (#1) COVID-19 Vacci ne (#1) [facility] Start: 1951 Hepatitis B Vaccines (1 of 3 - 3-dose series) Hepatitis B Vaccines (1 of 3 - 3-dose series) [facility] Start: 1951 Screening for malign ant neoplasm of colon [facility] Start: 1951 Screening for osteoporosis Bone Density Scan [facility] Start: 1951 Lipid panel Lipid Panel [facility] Start: 1951 Medicare Advantage Annual Wellness Visit (AWV) Medicare Advantage Annual Wellness Visit (AWV) [facility] Start: 1950 Screening for malign ant neoplasm of colon [facility] Start: 1951 Screening for osteoporosis Bone Density Scan [facility] Bacteria identified in Blood by Culture [facility] Work Phone: End: 03-13-2022 Basic metabolic 2000 panel - Serum or Plasma Basic Metabolic Panel Lab Routine Daily for 3 Days starting 03/11/2022 until 03/13/2022, [address] [facility] Work Phone: Comment on above: Daily for 3 Days sta rting 03/11/2022 until 03/13/2022, 1 completed End: 03-13-2022 CBC W Auto Differential panel - Blood CBC with Auto Differential Lab Routine Daily for 3 Days starting 03/11/2022 until 03/13/2022, 1 completed [employer] Work Phone: Comment on above: Daily for 3 Days sta rting 03/11/2022 until 03/13/2022, 1 completed Culture, Blood 1 Culture, Blood 1 Microbiology STAT 03/08/2022 1:04 PM EDT [employer] Work Phone: Culture, Blood 2 Culture, Blood 2 Microbiology STAT 03/08/2022 1:04 PM EDT [employer] Work Phone: End: 03-08-2022 Culture, Urine Culture, Urine Microbiology Add-On One Time for 1 Occurrences starting 03/08/2022 until 03/08/2022 [employer] Work Phone: Comment on above: One Time for 1 Occur rences starting 03/08/2022 until 03/08/2022 Dressing Order: Collagen Ag, Mesalt pad; Three times per week; 4x4 gauze, ABDs; Kerlex, Paper tape Dressing Order: Collagen Ag, Mesalt pad; Three times per week; 4x4 gauze, ABDs; Kerlex, Paper tape Wound Ostomy Routine Ordered: 01/20/2024 [facility] Work Phone: Comment on above: Ordered: 01/20/2024 Dressing Order: Collagen, Mesalt pad; Three times per week; ABDs; Kerlex, Paper tape Dressing Order: Collagen, Mesalt pad; Three times per week; ABDs; Kerlex, Paper tape Wound Ostomy Routine Ordered: 01/27/2024 [facility] Work Phone: Comment on above: Ordered: 01/27/2024 End: 10-26-2022 Dxa bone density study 1/> sites axial skel DXA-AXIAL SKELETON Radiology Routine Disorder of bone and cartilage 1 Occurrences starting 09/26/2021 until 10/26/2022 [facility] Work Phone: Comment on above: 1 Occurrences starti ng 09/26/2021 until 10/26/2022 ECG 12 lead ECG 12 lead CV E CG STAT 09/06/2022 3:01 AM EDT [facility] Work Phone: Glucose [Mass/volume ] in Serum or Plasma [employer] Work Phone: Comment on above: 4X Daily (AC & HS) u ntil discontinued starting 03/08/2022 As Needed until disc ontinued starting 03/08/2022 End: 03-08-2022 Initiate Sepsis Narrator Initiate Sepsis Narrator Respiratory Care STAT Once for 1 Occurrences starting 03/08/2022 until 03/08/2022 [facility] Comment on above: Once for 1 Occurrenc es starting 03/08/2022 until 03/08/2022 End: 11-26-2025 MR Ankle - left WO contrast MRI ANKLE WO IVCON LEFT Radiology Routine Chronic pain of left ankle 1 Occurrences starting 10/27/2024 until 11/26/[address] [facility] Comment on above: 1 Occurrences starti ng 10/27/2024 until 11/26/2025 Oxygen therapy [Mini mum Data Set] Initiate Oxygen Therapy Protocol Respiratory Care Routine Daily until discontinued starting 03/08/2022 [employer] Work Phone: Comment on above: Daily until disconti nued starting 03/08/2022 Oxygen therapy [Mini mum Data Set] Initiate Oxygen Therapy Protocol Respiratory Care Routine As Needed until discontinued starting 03/08/2022 [employer] Work Phone: Comment on above: As Needed until disc ontinued starting 03/08/2022 End: 03-19-2022 PROTIME/INR & PTT PROTIME/INR & PTT Lab Routine Daily for 10 Days starting 03/10/2022 until 03/19/2022, [address] [facility] Work Phone: Comment on above: Daily for [address] arting 03/10/2022 until 03/19/2022, 2 completed End: 01-17-2023 Screening mammography bi 2-view breast inc cad FUAD SCREENING Radiology Routine Encounter for screening mammogram for breast cancer 1 Occurrences starting 12/18/2021 until 01/17/2023 [facility] Work Phone: Comment on above: 1 Occurrences starti ng 12/18/2021 until 01/17/2023 End: 09-26-2022 US CAROTID ARTERIES [facility] US CAROTID ARTERIES [facility] Vascular Lab Routine Carotid artery disease, unspecified laterality, unspecified type (HCC) 1 Occurrences starting 09/26/2021 until 09/26/2022 [facility] Work Phone: Comment on above: 1 Occurrences starti ng 09/26/2021 until 09/26/2022 End: 03-08-2022 Wound ostomy eval and treat Wound ostomy eval and treat Wound Ostomy Routine One Time for 1 Occurrences starting 03/08/2022 until 03/08/2022 [facility] Work Phone: Comment on above: One Time for 1 Occur rences starting 03/08/2022 until 03/08/2022 End: 11-26-2025 XR Ankle - left AP and Lateral and oblique XR ANKLE GENERAL 3V AP/LAT/OBL LEFT Radiology Routine Sprain of left ankle, unspecified ligament, initial encounter Ankle instability, left 1 Occurrences starting 10/27/2024 until 11/26/2025 [facility] Work Phone: Comment on above: 1 Occurrences starti ng 10/27/2024 until 11/26/2025 XR Ankle - left AP a nd Lateral and oblique XR ANKLE GENERAL 3V AP/LAT/OBL LEFT Radiology Routine Sprain of left ankle, unspecified ligament, initial encounter Ankle instability, left 10/27/2024 12:04 PM EDT [facility] End: 03-12-2023 XR FOOT GENERAL 3V AP/LAT/OBL LEFT XR FOOT GENERAL 3V AP/LAT/OBL LEFT Radiology Routine Diabetic ulcer of toe 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, with fat layer exposed (HCC) 1 Occurrences starting 02/10/2022 until 03/12/2023 [facility] Work Phone: Comment on above: 1 Occurrences starti ng 02/10/2022 until 03/12/2023 End: 02-10-2022 XR FOOT GENERAL 3V AP/LAT/OBL LEFT [facility] Work Phone: Comment on above: 1 Occurrences starti ng 02/10/2022 until 02/10/2022 End: 11-26-2025 XR Tibia and Fibula - left AP and Lateral XR TIBIA FIBULA 2V AP/LAT LEFT Radiology Routine Sprain of left ankle, unspecified ligament, initial encounter Ankle instability, left 1 Occurrences starting 10/27/2024 until 11/26/[address] [facility] Comment on above: 1 Occurrences starti ng 10/27/2024 until 11/26/2025 XR Tibia and Fibula - left AP and Lateral XR TIBIA FIBULA 2V AP/LAT LEFT Radiology Routine Sprain of left ankle, unspecified ligament, initial encounter Ankle instability, left 10/27/2024 12:04 PM EDT [facility] Immunizations Immunization Date Immunization Notes Care Provider [facility] 03-14-2022 influenza virus vacc ine, unspecified formulation [address] 12-11-2021 COVID-19, PFIZER Bivalent BOOSTER, (age 12y+), IM, 30 mcg/0.3 mL dose BETY Jha MD Work Phone: [facility] Work Phone: 04-21-2021 COVID-19 vaccine, fu ll dose (MODERNA) Baudilio Sultana MD Work Phone: [facility] 02-21-2021 influenza, high-dose , quadrivalent vaccine (FLUZONE HIGH DOSE QUADRIVALENT) Baudilio Sultana MD Work Phone: [facility] 02-21-2021 influenza virus vacc ine, unspecified formulation Chasidy Heredia MA [facility] 09-25-2020 COVID-19 vaccine, fu ll dose (MODERNA) Baudilio Sultana MD Work Phone: [facility] 09-25-2020 COVID-19, [place] Vaccine , Vaccine Unspecified BETY Jha MD Work Phone: [facility] Work Phone: 09-25-2020 SARS-CoV-2, Unspecified [facility] [address] [facility] 08-28-2020 COVID-19 vaccine, fu ll dose (MODERNA) Baudilio Sultana MD Work Phone: [facility] Work Phone: 08-25-2020 COVID-19 vaccine, fu ll dose (MODERNA) Baudilio Sultana MD Work Phone: [facility] 08-23-2020 COVID-19, [place] Vaccine , Vaccine Unspecified BETY Jha MD Work Phone: [facility] Work Phone: 08-23-2020 SARS-CoV-2, Unspecified [facility] [address] [facility] 03-07-2020 influenza, high-dose , quadrivalent vaccine (FLUZONE HIGH DOSE QUADRIVALENT) Baudilio Sultana MD Work Phone: [facility] 05-04-2019 influenza, high dose seasonal, preservative-free Baudilio Sultana MD Work Phone: [facility] 05-04-2019 pneumococcal polysaccharide vaccine, 23 valent Baudilio Sultana MD Work Phone: [facility] 04-06-2018 influenza, high dose seasonal, preservative-free Baudilio Sultana MD Work Phone: [facility] 03-23-2017 Influenza virus vaccine [facility] Work Phone: 03-31-2016 zoster vaccine, live Baudilio Sultana MD Work Phone: [facility] 03-25-2016 influenza, injectabl e, quadrivalent, contains preservative Baudilio Sultana MD Work Phone: [facility] 03-02-2015 influenza, seasonal, injectable Baudilio Sultana MD Work Phone: [facility] 01-25-2015 pneumococcal conjuga te vaccine, 13 valent Baudilio Sultana MD Work Phone: [facility] 03-23-2014 influenza virus vacc ine, whole virus Baudilio Sultana MD Work Phone: [facility] 01-02-2014 Pneumococcal Vaccine [facility] Work Phone: 12-28-2013 pneumococcal polysaccharide vaccine, 23 valent Baudilio Sultana MD Work Phone: [facility] 03-29-2011 influenza virus vacc ine, unspecified formulation Baudilio Sultana MD Work Phone: [facility] Work Phone: 04-15-2010 influenza virus vacc ine, unspecified formulation Baudilio Sultana MD Work Phone: [facility] Work Phone: 04-19-2009 novel influenza-H1N1 -09, all formulations Baudilio Sultana MD Work Phone: [facility] Work Phone: 04-12-2009 influenza virus vacc ine, unspecified formulation Baudilio Sultana MD Work Phone: [facility] Work Phone: 04-05-2008 influenza virus vacc ine, unspecified formulation Baudilio Sultana MD Work Phone: [facility] 04-19-2007 influenza virus vacc ine, unspecified formulation Baudilio Sultana MD Work Phone: [facility] Work Phone: 03-29-2007 tetanus toxoid, redu alfredito diphtheria toxoid, and acellular pertussis vaccine, adsorbed Baudilio Sultana MD Work Phone: [facility] Work Phone: 04-29-2006 influenza virus vacc ine, unspecified formulation Baudilio Sultana MD Work Phone: [facility] Work Phone: 04-03-2003 pneumococcal polysaccharide vaccine, 23 valent Baudilio Sultana MD Work Phone: [facility] Work Phone: 04-04-1998 pneumococcal polysaccharide vaccine, 23 valent Baudilio Sultana MD Work Phone: [facility] Payers Date Payer Category Payer Medicare [id number] 2024 Self-pay [id number] 2023 Medicare HMO UHC VAUGHN Wolff [facility] Address: [place] [address] [id number] 2023 Medicaid HMO UHC VAUGHN Wolff EDICAID ONLY [id number] 2022 Medicare [id number] 2022 Medicare (Managed Care) [facility] DUAL COMPLETE HMO POS SNP [id number] 2022 Medicare [id number] 2021 Medicaid [id number] 2021 Medicaid UHC MEDICAID [facility] MEDICAID [id number] 2021-Present [phone] [address] [place] [address] Medicaid [id number] 2021 Medicaid [id number] 2021 Medicare [id number] 2021 Medicare [id number] 2021 Medicaid MEDICAID [facility] MEDICAID [id number] 2021-Present [phone] [address] [place] [address] Medicaid [id number] 2020 Private Health Insurance 2003 Unknown [facility] [id number] PFNAN [id number] 1990 Medicare [id number] 1951 Unknown [id number] Medicare [id number] Private Health Insurance [facility] [id number] Unknown [id number] Unknown [id number] Unknown [id number] Unknown [id number] Social History Date Type Detail Facility Start: 10-09-2016 End: 10-19-2024 Tobacco smoking status NHIS Never smoked tobacco [facility] Start: 08-15-2021 End: 10-27-2024 Alcohol intake Current drinker of alcohol (finding) [facility] Start: 01-02-2020 End: 09-06-2022 History SDOH Alcohol Frequency [address] [facility] Start: 01-02-2020 End: 09-06-2022 History SDOH Alcohol Std Drinks [address] [facility] Start: 01-02-2020 History SDOH Social Connections Phone [address] [facility] Start: 01-02-2020 History SDOH Social Connections Meetings [address] [facility] Start: 01-02-2020 History SDOH Social Connections Living [address] [facility] Start: 01-02-2020 History SDOH Physical Activity DPW [address] [facility] Start: 01-02-2020 History SDOH Stress [address] [facility] Start: 01-02-2020 Education [address] [facility] Start: 10-09-2016 End: 10-19-2024 Tobacco Comment Lived with 2 smoking parents for 18 years. Spouse non-smoke. [facility] Start: 1950 Sex Assigned At Not on file [facility] Start: 12-15-2020 End: 09-06-2022 Exposure to SARS-CoV-2 (event) Not sure [facility] Start: 04-22-2021 Tobacco smoking status NHIS Unknown if ever smoked [facility] Work Phone: Start: 02-27-2021 Rare [facility] Work Phone: Start: 02-27-2021 None [facility] Work Phone: Start: 06-26-2017 Spouse/ Significant Other [facility] Work Phone: Start: 02-27-2021 Non-smoker [facility] Work Phone: Start: 1950 End: 1950 Sex Assigned At Female [facility] Work Phone: Start: 10-04-2021 End: 03-10-2022 Exposure to SARS-CoV-2 (event) Unable to assess [facility] Start: 10-09-2016 End: 10-19-2024 Tobacco use and exposure Smokeless tobacco non-user [facility] Work Phone: Start: 03-08-2022 History SDOH Alcohol Comment 1 PER YEAR [email or web address] Work Phone: Start: 01-02-2020 End: 10-27-2024 History of Social function [facility] Start: 01-02-2020 End: 10-27-2024 Social connection and isolation panel [facility] Do you belong to any clubs or organizations such as sikhism groups, unions, fraternal or athletic groups, or school groups? No [facility] How often do you att end meetings of the clubs or organizations you belong to? Patient refused [facility] Are you now , , , , never or living with a partner? [facility] How often to you hav e a drink containing alcohol? Monthly or less [facility] How many standard dr inks containing alcohol do you have on a typical day? 1 or [address] [facility] How often do you hav e 6 or more drinks on 1 occasion? Never [facility] How hard is it for y ou to pay for the very basics like food, housing, medical care, and heating Not very hard [facility] Do you feel stress - tense, restless, nervous, or anxious, or unable to sleep at night because your mind is troubled all the time - these days [OSQ] Rather much [facility] (I/We) worried wheth er (my/our) food would run out before (I/we) got money to buy more. Sometimes true [facility] The food that (I/we) bought just didn't last, and (I/we) didn't have money to get more. Never true [facility] Start: 12-03-2021 Gender identity Identifies as female gender (finding) [facility] Start: 07-09-2024 Alcohol Comment occasional [facility] Start: 04-03-2022 Sex Female (finding) [facility] Medical Equipment Procedure Code Equipment Code Equipment Original Text Equipment Identifier Dates Reinaldo Bn Smplx Hv Fd - [id number] Start: 12-26-2013 Reinaldo Bn Smplx Hv Fd - [id number] Start: 12-26-2013 Comp Fem 3 Rt Kn Reinaldo Ps Pfc - [id number] Start: 12-26-2013 Ins Tib Xlnk - [id number] Start: 12-26-2013 Comp Tibtry 3 Kn Reinaldo Mdlr Sig - [id number] Start: 12-26-2013 Claribel Arceo 38mm Pf c Sig Std Kn - [id number] Start: 12-26-2013 [id number], [id number], [id number], [id number], [id number], [id number] Start: 01-04-2018 End: 07-24-2021 Comment on above: [...] 01/25/2015 11:16 AM Lora Alegria Ma No [facility] 01-25-2015 Are you blind, or do you have serious difficulty seeing, even when wearing glasses Yes 01/25/2015 11:16 AM Lora Alegria Ma Yes [facility] 01-25-2015 Do you have serious difficulty walking or climbing stairs Yes 01/25/2015 11:16 AM Lora Alegria Ma Yes [facility] 01-25-2015 Do you have difficul ty dressing or bathing Yes 01/25/2015 11:16 AM Lora Alegria Ma Yes [facility] 01-25-2015 Because of a physica l, mental, or emotional condition, do you have difficulty doing errands alone such as visiting a physician's office or shopping Yes 01/25/2015 11:16 AM Lora Alegria Ma Yes [facility] Mental Status Date Assessment Result Facility 01-25-2015 Because of a physica l, mental, or emotional condition, do you have serious difficulty concentrating, remembering, or making decisions No 01/25/2015 11:16 AM Lora Alegria Ma No [facility] Clinical Notes 01-04-2018 to 12-06-2024 AntonioFelix garcia RT(R) - 10/27/2024 11:40 AM HermanSteven - 10/27/2024 11:29 AM Del Shultz RN - 10/27/2024 10:44 AM EDTPatient InstructionsDischarge InstructionsAttachments Note Date & Type Note Facility 12-06-2024 Note HNO ID: [id number] Author: GILMER COTTON, PhD Service: ? Author Type: Psychologist Type: Progress Notes Filed: 12/06/2024 12:04 Note Text: [facility] Behavioral Health Department Progress Note Randolph [place] 12/06/2024 [id number] PROVIDER: Gilmer Cotton, PhD CPT Code: Time: [...] illness Pt moved now a week [facility] [place] so far and she believes it [...] Assisted Living room while she is in [facility] MEDICATIONS: Per medical record: Current [...] directed once a month. blood sugar diagnostic (Dualog VERIO TEST STRIPS) test strip Test blood [...] breathe hourly while awake. PT/INR test meter (TwijectorGUCHEK XS PRO) misc Check Protime weekly. Dx: pulmonary embolism, V58.61 COMPOUNDED PRESCRIPTION Hospital bed all electric with adjustable head and feet. 415.19; 343.8; 782.3; 787.91; V43.65 No current facility-administered medications for this visit. Psychiatric Medication Issues: No change from previous appointment DIAGNOSIS: Frederick I: Depressive Disorder recurrent Morbidly Obese CP Frederick II : Deferred Frederick III : See medical history Frederick IV: Health Frederick V: GAF 60-51 Moderate symptoms or moderate difficulty in social, (more content not included)... [facility] 11-08-2024 Note HNO ID: [id number] Author: SHALINI MERA RT(R) Service: ? Author [...] PATIENT PRESENTS WITH AN IMPLANTABLE OR ATTACHED PROGRAM REVIEW DIRECTOR: No RADIOLOGY DEPARTMENT: MR; Exam(s) Completed: Lower MSK: Ankle/Hind Foot, left. Lavender Administered: No PERIPHERAL IV DATA: Not applicable SIGNED BY: RT Faustina(R) November 08, 2024 11:14 AM [facility] 11-04-2024 Note HNO ID: [id number] Author: GILMER COTTON, PhD Service: ? Author Type: Psychologist Type: Progress Notes Filed: 11/04/2024 11:56 Note Text: [facility] Behavioral Health Department Progress Note Randolph Hunter 11/04/2024 [id number] PROVIDER: Gilmer Cotton, PhD CPT Code: Time: 50 minutes Setting: Due to the federal emergency declaration and the need for ongoing mental health services, the following visit was completed virtually and informed consent obtained orally to reduce the risk of COVID-19 exposure. Oral consent to services related to virtual visits was obtained after information was sent via iWelcome or read to patient if [employer] not available." Parties Present: Patient Treatment Modality/Interventions: [...] / mo over a year so considering [facility] [place] is doing a walk through today [...] directed once a month. blood sugar diagnostic (Dualog VERIO TEST STRIPS) test strip Test blood [...] adjustable head and (more content not included)... [facility] 10-27-2024 History of Present illness Narrative Radiology [...] PATIENT PRESENTS WITH AN IMPLANTABLE OR ATTACHED PROGRAM REVIEW DIRECTOR: No RADIOLOGY DEPARTMENT: General X-ray: Exam(s) Completed: Lower Extremity X-Ray(s): Tibia Fibula, Left and Ankle, Left PERIPHERAL IV DATA: Not applicable SIGNED BY: RT Ari(Jessica) October 27, 2024 11:40 AM documented in this encounter [facility] 10-27-2024 Note HNO ID: [id number] Author: FELIX DAVID RT(R) Service: Radiology Author Type: Technologist [...] PATIENT PRESENTS WITH AN IMPLANTABLE OR ATTACHED PROGRAM REVIEW DIRECTOR: No RADIOLOGY DEPARTMENT: General X-ray: Exam(s) Completed: Lower Extremity X-Ray(s): Tibia Fibula, Left and Ankle, Left PERIPHERAL IV DATA: Not applicable SIGNED BY: RT Ari(R) October 27, 2024 11:40 AM [facility] 10-27-2024 Note HNO ID: [id number] Author: STEVEN PELAEZ, ? Service: ? Author [...] (NORCO) 5-325 mg (more content not included)... [facility] 10-27-2024 History of Present illness Narrative Terry [...] embolism (HCC) 2011 SLE (systemic lupus erythematosus) ([facility]) Type II or unspecified type diabetes [...] month. 12 Each 0 blood sugar diagnostic (BioMetric SolutionUCH VERIO TEST STRIPS) test strip Test blood [...] improve strength and stability. Attestation Recording using [employer] software for draft documentation of the visit was discussed with the patient/authorized environmental marketing representative; all questions welcomed and answered. Patient/authorized environmental marketing representative agreed to proceed Steven Pelaez DPM [...] and injured herself. She is currently at [facility]. Has a history of cerebral palsy with left sided decreased sensation, but states that when she stands or puts pressure on the foot she is still having pain. XRay of left ankle was done 09/18/24. ИРИНА 12/15/23 documented in this encounter [facility] 10-27-2024 Instructions Steven Pelaez - 10/27/2024 11:25 [...] the rehab center. documented in this encounter [facility] 10-27-2024 Note HNO ID: [id number] Author: DEL ISBELL RN Service: ? Author [...] and injured herself. She is currently at [facility]. Has a history of cerebral palsy with left sided decreased sensation, but states that when she stands or puts pressure on the foot she is still having pain. XRay of left ankle was done 09/18/24. ИРИНА 12/15/23 [facility] 10-19-2024 History of Present illness Narrative Associated [...] directed once a month. blood sugar diagnostic (BioMetric SolutionUCH VERIO TEST STRIPS) test strip Test blood [...] breathe hourly while awake. PT/INR test meter (G.ho.stCHEK XS PRO) misc Check Protime weekly. Dx: [...] Status Change Penicillins Hives Dioxicillin Promethazine Intolerance Ffnxygg-Kqh-Dsc Red* Myalgia PAST MEDICAL HISTORY PAST MEDICAL [...] COLONOSCOPY FLX DX W/COLLJ SPEC WHEN PFRMD 5/4/07 COLONOSCOPY FLX DX W/COLLJ SPEC WHEN PFRMD [...] is undergoing PT currently. Follow up with Benigno for left foot pain. I spent a total of approximately 35 minutes on the date of the service which included preparing to see the patient, boey-wl-issp patient care, completing clinical documentation, obtaining and/or [...] these instructions. Informed Consent Consent Obtained: Verbal [place] Protocol A moment to CARE was completed. [...] Mendel Sharma PA-C documented in this encounter [facility] 10-19-2024 Note HNO ID: [id number] Author: MENDEL SHARMA PA-C Service: ? Author Type: Physician Mainframe Systems Programmer Type: Progress Notes Filed: 10/19/2024 10:43 Note [...] directed once a month. blood sugar diagnostic (BioMetric SolutionUCH VERIO TEST STRIPS) test strip Test blood [...] Status Change Penicillins Hives Dioxicillin Promethazine Intolerance Tvsdsty-Rzt-Kcc Red* Myalgia PAST MEDICAL HISTORY PAST MEDICAL HISTORY Diagnosis Date CAD (coronary artery disease) Carotid artery stenosis Cerebral palsy (HCC) Chronic depressive personality disorder Diarrhea Dyslipidemia Edema bilat Hirsutism Hypertension Hypothyroid Insomnia Migraines (more content not included)... [facility] 10-10-2024 Note HNO ID: [id number] Author: TRAVIS PATTERSON APRN.SMOKE EATER Service: ? Author Type: Nurse Practitioner Type: Progress Notes Filed: 10/10/2024 16:06 Note Text: Connected Care Unit Progress Note Patient Name: Randolph Hunter Patient Facility: [facility] Admit Date 09/28/2024 Level of Care: Skilled [...] vital signs Monitor labs 9. Atherosclerosis of [place] coronary artery of [place] heart without angina pectoris - ICD9: 414.01, [...] 9:30 AM MENDEL SHARMA [facility] [phone] 11/04/2024 11:00 AM [facility] [phone] 12/06/2024 11:00 AM [facility] [phone] 12/07/2024 3:40 PM RAVI MICHAEL [facility] [phone] HPI: (Per hospital discharge) Admission Information ADMIT [...] inability to stand pivot necessitating going to [facility] facility for rehab SUMMARY OF WHAT HAPPENED WHILE I WAS IN THE HOSPITAL: Orthopedics agrees no surgical intervention now resume exercises when you get to the ch[facility] facility no ligamentous injury evident on CT [...] for weakness. Medication (more content not included)... [facility] 10-10-2024 History of Present illness Narrative Images from the original note were not included. Connected Care Unit Progress Note Patient Name: Randolph Hunter Patient Facility: [facility] Admit Date 09/28/2024 Level of Care: Skilled [...] vital signs Monitor labs 9. Atherosclerosis of [place] coronary artery of [place] heart without angina pectoris - ICD9: 414.01, [...] 10/19/2024 9:30 AM MENDEL SHARMA [facility] [phone] 11/04/2024 11:00 AM [facility] [phone] 12/06/2024 11:00 AM [facility] [phone] 12/07/2024 3:40 PM RAVI MICHAEL [facility] [phone] HPI: (Per hospital discharge) Admission Information ADMIT DATE: 09/18/2024 DISCHARGE DATE: 09/28/2024 MY DOCTORS AND MEDICAL TEAM: My Main Hospital Doctor: Sage Loera MD Primary Care Provider: Raf Casey MD, My Medical Team Members: Treatment Team: Attending Provider: Sage Loera MD MY CONDITION AT DISCHARGE: Stable REASON I WAS IN THE HOSPITAL: Debility from cerebral palsy with acute left knee pain without fracture and inability to stand pivot necessitating going to [facility] facility for rehab SUMMARY OF WHAT HAPPENED WHILE I WAS IN THE HOSPITAL: Orthopedics agrees no surgical intervention now resume exercises when you get to the ch[facility] facility no ligamentous injury evident on CT [...] embolism (HCC) 2011 SLE (systemic lupus erythematosus) ([facility]) Type II or unspecified type diabetes [...] GFR- 59 mL/min/1.73 m2 >60 L Final RLJ-WYK-PXOSUVM 49 mL/min/1.73 m2 >60 L Final Stage [...] today,10/10/2024 This note was partially generated using [employer] voice recognition system, and there may be some incorrect words, spellings, and punctuation that were not noted in checking the note before saving. Electronically signed by Travis Patterson APRN.SMOKE EATER documented in this encounter [facility] 10-05-2024 Note HNO ID: [id number] Author: TRAVIS PATTERSON APRN.JOHN Service: ? Author Type: Nurse Practitioner Type: Progress Notes Filed: 10/05/2024 16:20 Note Text: Connected Care Unit Progress Note Patient Name: Randolph Hunter Patient Facility: [facility] Admit Date 09/28/2024 Level of Care: Skilled [...] vital signs Monitor labs 9. Atherosclerosis of [place] coronary artery of [place] heart without angina pectoris - ICD9: 414.01, [...] Dept Phone 10/19/2024 9:30 AM MENDEL SHARMA [facility] [phone] 11/04/2024 11:00 AM [facility] [phone] HPI: (Per hospital discharge) Admission Information ADMIT [...] inability to stand pivot necessitating going to [facility] facility for rehab SUMMARY OF WHAT HAPPENED WHILE I WAS IN THE HOSPITAL: Orthopedics agrees no surgical intervention now resume exercises when you get to the chcf facility no ligamentous injury evident on CT [...] weakness. Medications: Medications (more content not included)... [facility] 10-05-2024 History of Present illness Narrative Images from the original note were not included. Connected Care Unit Progress Note Patient Name: Randolph Hunter Patient Facility: [facility] Admit Date 09/28/2024 Level of Care: Skilled [...] vital signs Monitor labs 9. Atherosclerosis of [place] coronary artery of [place] heart without angina pectoris - ICD9: 414.01, [...] Dept Phone 10/19/2024 9:30 AM MENDEL SHARMA [facility] [phone] 11/04/2024 11:00 AM [facility] [phone] HPI: (Per hospital discharge) Admission Information ADMIT [...] inability to stand pivot necessitating going to [facility] facility for rehab SUMMARY OF WHAT HAPPENED WHILE I WAS IN THE HOSPITAL: Orthopedics agrees no surgical intervention now resume exercises when you get to the chcf facility no ligamentous injury evident on CT [...] today,10/05/2024 This note was partially generated using [employer] voice recognition system, and there may be some incorrect words, spellings, and punctuation that were not noted in checking the note before saving. Electronically signed by Travis Patterson APRN.JOHN documented in this encounter [facility] 09-30-2024 Note HNO ID: [id number] Author: TRAVIS PATTERSON APRN.JOHN Service: ? Author Type: Nurse Practitioner Type: Progress Notes Filed: 09/30/2024 13:49 Note Text: Connected Care Unit Progress Note Patient Name: Randolph Hunter Patient Facility: [facility] Admit Date 09/28/2024 Level of Care: Skilled [...] vital signs Monitor labs 9. Atherosclerosis of [place] coronary artery of [place] heart without angina pectoris - ICD9: 414.01, [...] Dept Phone 10/04/2024 11:00 AM [facility] [phone] 10/19/2024 9:30 AM MENDEL SHARMA [facility] [phone] 11/04/2024 11:00 AM [facility] [phone] HPI: (Per hospital discharge) Admission Information ADMIT [...] inability to stand pivot necessitating going to [facility] facility for rehab SUMMARY OF WHAT HAPPENED WHILE I WAS IN THE HOSPITAL: Orthopedics agrees no surgical intervention now resume exercises when you get to the ch[facility] facility no ligamentous injury evident on CT [...] history (unchanged) Revi (more content not included)... [facility] 09-30-2024 History of Present illness Narrative Images from the original note were not included. Connected Care Unit Progress Note Patient Name: Randolph Hunter Patient Facility: [facility] Admit Date 09/28/2024 Level of Care: Skilled [...] vital signs Monitor labs 9. Atherosclerosis of [place] coronary artery of [place] heart without angina pectoris - ICD9: 414.01, [...] Dept Phone 10/04/2024 11:00 AM [facility] [phone] 10/19/2024 9:30 AM MENDEL SHARMA [facility] [phone] 11/04/2024 11:00 AM [facility] [phone] HPI: (Per hospital discharge) Admission Information ADMIT [...] inability to stand pivot necessitating going to [facility] facility for rehab SUMMARY OF WHAT HAPPENED WHILE I WAS IN THE HOSPITAL: Orthopedics agrees no surgical intervention now resume exercises when you get to the chcf facility no ligamentous injury evident on CT [...] embolism (HCC) 2011 SLE (systemic lupus erythematosus) ([facility]) Type II or unspecified type diabetes [...] which included preparing to see the patient, wfbg-qn-giqy patient care, completing clinical documentation, obtaining and/or reviewing separately obtained history, performing a medically appropriate examination, counseling and educating the patient/family/caregiver, ordering medications, tests, or procedures, communicating with other HCPs (not separately reported), independently interpreting results (not separately reported), communicating results to the patient/family/caregiver, and care coordination (not separately reported). It This note was partially generated using [employer] voice recognition system, and there may be some incorrect words, spellings, and punctuation that were not noted in checking the note before saving. Electronically signed by Travis Patterson APRN.SMOKE EATER documented in this encounter [facility] 09-28-2024 Note HNO ID: [id number] Author: KATERIN RICH RN Service: Care Management Author Type: Registered Nurse Type: Care Mgt Progress Note Filed: 09/28/2024 15:06 Note Text: CARE MANAGEMENT DISCHARGE NOTE SERVICE DATE: September 28, 2024 SERVICE TIME: 3:04 PM Admission Date: 09/18/2024 LOS: 0 days Discharge Arrangement Discharge Arrangement: [facility] Was an expedited discharge program used?: No Services Arranged Provider Name: [facility] Caregiver Assessment Caregiver is ready, willing and able to meet the patient's needs as recommended by the inter-professional team: Yes Name of Caregiver: [facility] Transportation Arrangements Transportation Arrangements: Ambulance Transportation Agency and Phone #:: [facility] [phone] Date of Trip: 09/28/24 Time of Trip: 1630 Type of Service: BLS Non-emergency Is Patient Medicaid Pending?: No Was transportation financial coverage discussed with family?: Patient Manager Of Learning Location: [facility] Destination: [facility] Financial Care Management Responsibility: None Handoff Communication: Handoff to: Primary Care Physician Primary Care Physician Name/Phone: Raf Casey MD - [phone] Additional Information: Orders received for patient to discharge to SNF. [facility] is able to accept patient today. Precert approval received. Patient agreeable to discharge plan. Ambulance transport via MMT at 1630. Envelope prepared. Bedside RN updated. SIGNATURE: Katerin Rich RN PATIENT NAME: Randolph Hunter DATE: September 28, 2024 TIME: 3:03 PM [facility] 09-28-2024 Note HNO ID: [id number] Author: KATERIN RICH RN Service: Care Management Author Type: Registered Nurse Type: Care Mgt Progress Note Filed: 09/28/2024 11:21 Note Text: CARE MANAGEMENT PROGRESS NOTE SERVICE DATE: 09/28/2024 SERVICE TIME: 10:07 AM LOS: 0 days Needs Prior to Discharge: To Be Determined EMR reviewed. CM called and left VM for Ping Ramsey from the [facility] of ([phone]) in regards to determination of PASRR. Awaiting return call. CM will follow. 11:00 AM Left VM for [facility] in regards to determination of PASRR. Awaiting return call. Per [employer] website noted status is completed. CM will follow. 11:21 AM SNF reviewed results in [employer] website and are able to accept patient today. CM will follow. SIGNATURE: Katerin Rich RN PATIENT NAME: Randolph Hunter DATE: September 28, 2024 TIME: 10:07 AM [facility] 09-27-2024 Note HNO ID: [id number] Author: SAGE LOERA MD Service: Hospital Medicine Author Type: Physician Type: Progress Notes Filed: 09/27/2024 18:30 Note Text: DEPARTMENT OF HOSPITAL MEDICINE PROGRESS NOTE SERVICE DATE: 09/27/2024 SERVICE TIME: 5:44 PM Hospital Medicine/Primary Attending: Sage Loera MD NIGHT AND WEEKEND COVERAGE: [place] COVERAGE: Nights: [phone], please page [facility] Night coverage pager [phone]. 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 [facility] 09-27-2024 Note HNO ID: [id number] Author: SHERYL HUITRON RN Service: Care Management Author Type: Registered Nurse Type: Care Mgt Progress Note Filed: 09/27/2024 14:00 Note Text: CARE MANAGEMENT PROGRESS NOTE SERVICE DATE: 09/27/2024 SERVICE TIME: 1:50 PM LOS: 0 days HENS.OH checked and no determination noted on PASRR at this time. NAWAF LOPEZ called Ping Ramsey from the [facility]. She confirms she completed bedside visit yesterday she checked and states she has not received any updates at this time. NAWAF LOPEZ provided direct contact and [employer] for her call with update. [facility] confirmed that insurance authorization/precert was obtained and valid until 09/29/24. SNF: [facility] updated in [facility] Transitions. Discharge Transportation: Medical Transport envelope on Chart. NAWAF LOPEZ updated patient. CM dept to follow. SIGNATURE: Sheryl Huitron RN PATIENT NAME: Randolph Hunter DATE: September 27, 2024 TIME: 1:50 PM [facility] 09-26-2024 Note HNO ID: [id number] Author: SAGE LOERA MD Service: Hospital Medicine Author Type: Physician Type: Progress Notes Filed: 09/26/2024 14:40 Note Text: DEPARTMENT OF HOSPITAL MEDICINE PROGRESS NOTE SERVICE DATE: 09/26/2024 SERVICE TIME: 1:37 PM Hospital Medicine/Primary Attending: Sage Loera MD NIGHT AND WEEKEND COVERAGE: [place] COVERAGE: Nights: [phone], please page [facility] Night coverage pager [phone]. 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 Type 2 diabetes, controlled, with neuropathy (HCC) (POA: Yes) --OP: Metformin --IP: SSI #1 AC/qHS -- Home metformin resumed CKD (chronic kidney disease) (POA: Yes) -- Renal function stable s Patient Active Hospital Problem List: Fall at home, initial encounter Date Noted: 09/19/2024 Lupus anticoagulant disorder (HCC) Date Noted: 05/04/2023 Pulmonary embolism (HCC) Date Noted: 09/01/2011 Type 2 diabetes, controlled, with neuropathy ([facility]) Date Noted: Acquired hypothyroidism Date Noted: 04/10/2005 Obesity, Class II, BMI 35-39.9 Date Noted: 09/19/2024 SLE (systemic lupus erythematosus) ([facility]) Date Noted: 08/02/2010 Knee pain Date Noted: 05/04/2023 CKD (chronic kidney disease) Date Noted: 05/04/2023 Depression, recurrent Date Noted: 10/17/2009 CP (cerebral palsy) ([facility]) Date Noted: 03/29/2007 Hypomagnesemia Date Noted: [...] urinary symptoms, skin (more content not included)... [facility] 09-26-2024 Note HNO ID: [id number] Author: SHERYL HUITRON, NAWAF Service: Care Management Author Type: Registered Nurse Type: Care Mgt Progress Note Filed: 09/26/2024 15:07 Note Text: CARE MANAGEMENT PROGRESS NOTE SERVICE DATE: 09/26/2024 SERVICE TIME: 9:41 AM LOS: 0 days 09/18/24 Admission Hospital Consults: PT. OT. O2: room air Diet: regular + supplements 09/22/24 PT recommended: SNF 09/22/24 OT recommended: SNF Discharge Plan: [facility] SNF: [facility] - Able to Accept Precert was obtained and valid 09/23-09/25. Needs Precert for SNF. PT AND OT messaged to request updated evaluations today. [facility] updated via secure message to [employer] site checked - No updates on determination. NAWAF LOPEZ called and left voice message for Ping Ramsey [phone] [facility]. Service and Support Administration request call back with update on determination. 09/26/24 9:38 AM NAWAF LOPEZ attempted another call to Ping Ramsey-No Answer/Voice Mail Box - no new message left at this time. Needs Prior to Discharge: To Be Determined, OT/PT Evaluation, Insurance Authorization, Precertification, Discharge Transportation ([facility] Level II Reveiw - Determination.) NAWAF LOPEZ met with patient at bedside to update her on discharge planning. CM Dept to Follow. 09/26/24 12:50PM NAWAF LOPEZ called Ping Ramsey from the [facility]. She informs CM that they can not see the review in there system. 09/26/24 1:00 PM NAWAF LOPEZ called and spoke with Ravi Multani [phone] from the [facility] He informs CM that review needs to go to the pending sale to [facility] and they should be able to see the referral. NAWAF LOPEZ called Ping Ramsey back to inform her. She states she still is unable to see and states if she not receive it by end of day today she will reach out to Ravi Multani tomorrow. JESSICA Dept to follow. 09/26/24 2:08 PM Ping Ramsey from [facility] called CM to update her that she will be completing bedside visit today between 300PM and 400PM. [facility] tasked to start insurance authorization/precert. CM Dept to follow. SIGNATURE: Sheryl Huitron RN PATIENT NAME: Randolph Hunter DATE: September 26, 2024 TIME: 9:41 AM [facility] 09-25-2024 Note HNO ID: [id number] Author: SAGE LOERA MD Service: Hospital Medicine Author Type: Physician Type: Progress Notes Filed: 09/25/2024 16:17 Note Text: DEPARTMENT OF HOSPITAL MEDICINE PROGRESS NOTE SERVICE DATE: 09/25/2024 SERVICE TIME: 12:48 PM Hospital Medicine/Primary Attending: Sage Loera MD NIGHT AND WEEKEND COVERAGE: [employer] COVERAGE: Nights: [phone], please page [facility] Night coverage pager [phone]. 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 [facility] 09-24-2024 Note HNO ID: [id number] Author: SAGE LOERA MD Service: Hospital Medicine Author Type: Physician Type: Progress Notes Filed: 09/25/2024 12:46 Note Text: DEPARTMENT OF HOSPITAL MEDICINE PROGRESS NOTE SERVICE DATE: 09/25/2024 SERVICE TIME: 12:10 PM Hospital Medicine/Primary Attending: Sage Loera MD NIGHT AND WEEKEND COVERAGE: [employer] COVERAGE: Nights: [phone], please page [facility] Night coverage pager [phone]. 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 [facility] ED Course: HDS, afebrile. Labs unremarkable. Imaging including XR L KNEE/HIP/ANKLE negative for fracture. CT L KNEE negative for fracture, small joint effusion noted. The patient was admitted under (more content not included)... [facility] 09-23-2024 Note HNO ID: [id number] Author: CONCEPCION KEEN MD Service: Hospital Medicine Author Type: Physician Type: Progress Notes Filed: 09/23/2024 17:37 Note Text: DEPARTMENT OF HOSPITAL MEDICINE PROGRESS NOTE SERVICE DATE: 09/23/2024 SERVICE TIME: 5:34 PM Hospital Medicine/Primary Attending: Concepcion Keen,* NIGHT AND WEEKEND COVERAGE: [employer]: Days: [phone], please page attending physician. Nights: [phone], please page [facility] Night coverage pager [phone]. Subjective INTERVAL HPI: Seen and examined on [...] Drain Duration External Collection Device 09/18/24 2332 [facility] 4 days Reviewed lines and needs [...] (cerebral palsy) (HCC) (POA: Yes) --Presented to [facility] for evaluation of left knee pain after a fall at home, non-ambulatory at baseline secondary to CP but concerns for current facility ability to meet her needs --XR L KNEE/HIP/ANKLE negative for acute osseous injury -- (more content not included)... [facility] 09-23-2024 Note HNO ID: [id number] Author: SHERYL HUITRON, RN Service: Care Management Author Type: Registered Nurse Type: Care Mgt Progress Note Filed: 09/23/2024 16:53 Note Text: CARE MANAGEMENT PROGRESS NOTE SERVICE DATE: 09/23/2024 SERVICE TIME: 8:09 AM LOS: 0 days Discharge Plan: [facility] SNF: [facility] - : Able to Accept. [facility] tasked to start insurance precert for SNF. [place] PAS[place] completed. Level II Review Required. Determination: Pending. Discharge Transportation: Medical Transport - COT Transport Envelope on Chart SNF [facility] Updated in [facility] Transitions. Needs Prior to Discharge: To Be Determined, Insurance Authorization, Precertification, Discharge Transportation (PASRR Level II Determination) CM Dept to Follow. 09/23/24 11:46 AM [facility] confirms Precert Obtained: Patient has been APPROVED to admit to [facility] in the [facility] Portal starting 09/23-09/25 NRD 09/25 Auth ID [id number]. [place] PAS[place] Level II Review Determination is Still Pending. SNF: [facility] - Updated in [facility] Transitions. They can not accept until they receive the PASRR determination. CM dept to Follow. 09/23/24 4:52 PM RN CM checked [place] PAS[place] Document ID : [id number] - Still Pending Level II Determination. CM Dept to follow. SIGNATURE: Sheryl Huitron RN PATIENT NAME: Randolph Hunter DATE: September 23, 2024 TIME: 8:08 AM [facility] 09-22-2024 Note HNO ID: [id number] Author: CONCEPCION KEEN MD Service: Hospital Medicine Author Type: Physician Type: Progress Notes Filed: 09/22/2024 12:13 Note Text: DEPARTMENT OF HOSPITAL MEDICINE PROGRESS NOTE SERVICE DATE: 09/22/2024 SERVICE TIME: 12:12 PM Hospital Medicine/Primary Attending: Concepcion Keen,* NIGHT AND WEEKEND COVERAGE: [employer]: Days: [phone], please page attending physician. Nights: [phone], please page [facility] Night coverage pager [phone]. Subjective INTERVAL HPI: Seen and examined on [...] Drain Duration External Collection Device 09/18/24 2332 [facility] 3 days Reviewed lines and needs [...] (cerebral palsy) (HCC) (POA: Yes) --Presented to [facility] for evaluation of left knee pain after a fall at home, non-ambulatory at baseline secondary to CP but concerns for current facility ability to meet her needs --XR L KNEE/HIP/ANKLE negative for acute osseous injury --CT L KNEE negative for fracture, small joint eff (more content not included)... [facility] 09-22-2024 Note HNO ID: [id number] Author: CONCEPCION KEEN MD Service: Care Management [...] hospital problems. * Attending Physician: Concepcion Keen,* [facility] 09-22-2024 Note HNO ID: [id number] Author: SHERYL HUITRON RN Service: Care Management Author Type: Registered Nurse Type: Care Mgt Progress Note Filed: 09/22/2024 15:17 Note Text: CARE MANAGEMENT PROGRESS NOTE SERVICE DATE: 09/22/2024 SERVICE TIME: 8:35 AM SNF Referrals: [facility] - Pending [facility] - Able to Accept [facility] - Able to Accept Patients SNF 1st choice is pending. RN JESSICA updated Referral and requested update on acceptance. PT AND OT messaged to request updates for Precert. Patient has been updated that [facility] is still pending. Discharge Transportation: To be Determined. Needs Prior to Discharge: Accepting Facility, OT/PT Evaluation, Insurance Authorization, Precertification, Discharge Transportation CM Dept to Follow. 09/22/24 3:10 PM [facility] - Able to Accept PASR Completed in [facility] - Level II Review Required. NAWAF LOPEZ called the [facility] [phone] Option 2 Service and Support Administration and spoke with Ping Ramsey at [phone]. She checked and informed CM that it has not been received from [facility] at this time. She reports she it [...] DATE: September 22, 2024 TIME: 8:35 AM [facility] 09-21-2024 Note HNO ID: [id number] Author: GILMER COTTON, PhD Service: ? Author Type: Psychologist Type: Progress Notes Filed: 09/21/2024 17:07 Note Text: [facility] Behavioral Health Department Progress Note Randolph Hunter 09/21/2024 [id number] PROVIDER: Gilmer Cotton, PhD CPT Code: Time: 30 minutes Setting: Due to the federal emergency declaration and the need for ongoing mental health services, the following visit was completed virtually and informed consent obtained orally to reduce the risk of COVID-19 exposure. Oral consent to services related to virtual visits was obtained after information was sent via iWelcome or read to patient if Rew[employer] Gatewayhart not available." Phone ... no access to [...] PRN Psychiatric Medication Issues: as noted DIAGNOSIS: Frederick I: Depressive Disorder recurrent Morbidly Obese CP Frederick II : Deferred Frederick III : See medical history Frederick IV: Health Frederick V: GAF 60-51 Moderate symptoms or moderate difficulty in social, occupational or school functioning TREATMENT PROGRESS/ASSESSMENT: Fluctuating progress. TREATMENT PLAN/GOALS: Continue in therapy focusing on self-care, stress management, affect management, anxiety management, and self-esteem. Next appointment: as scheduled Gilmer Cotton, PhD [facility] 09-21-2024 Note HNO ID: [id number] Author: CONCEPCION KEEN MD Service: Hospital Medicine Author Type: Physician Type: Progress Notes Filed: 09/21/2024 16:30 Note Text: DEPARTMENT OF HOSPITAL MEDICINE PROGRESS NOTE SERVICE DATE: 09/21/2024 SERVICE TIME: 4:28 PM Hospital Medicine/Primary Attending: Concepcion Keen,* NIGHT AND WEEKEND COVERAGE: [employer]: Days: [phone], please page attending physician. Nights: [phone], please page [facility] Night coverage pager [phone]. Subjective INTERVAL HPI: Seen and examined on [...] days Drain Duration External Collection Device 09/18/24 2333 [facility] 2 days Reviewed lines and needs [...] (cerebral palsy) (HCC) (POA: Yes) --Presented to [facility] for evaluation of left knee pain after a fall at home, non-ambulatory at baseline secondary to CP but concerns for current facility ability to meet her needs --XR L KNEE/HIP/ANKLE negative for acute osseous injury --CT L KNEE negative for fracture, small joint effusion noted --[place] (more content not included)... [facility] 09-21-2024 Note HNO ID: [id number] Author: SHERYL HUITRON RN Service: Care Management Author Type: Registered Nurse Type: Care Mgt Progress Note Filed: 09/21/2024 10:53 Note Text: CARE MANAGEMENT PROGRESS NOTE SERVICE DATE: 09/21/2024 SERVICE TIME: 9:19 AM LOS: 0 days Patient requesting a SNF Provider List for [place]: [id number]. [facility] SNF Provider List for [place] given to patient at bedside. Needs Prior to Discharge: To Be Determined, Facility or Agency Choices, Accepting Facility, Insurance Authorization, Precertification, Discharge Transportation CM Dept to Follow. 09/21/24 10:50 AM Patient provided SNF choices in order of preference: [facility] SNF Referrals sent in [facility]. Precert Needed for SNF. CM Dept to Follow. SIGNATURE: Sheryl Huitron RN PATIENT NAME: Randolph Hunter DATE: September 21, 2024 TIME: 9:19 AM [facility] 09-21-2024 Note HNO ID: [id number] Author: SHERYL HUITRON RN Service: Care Management [...] discussed PT AND OT recommendations for SNF. [facility] SNF provider list given to patient. Patient informed she needs to provide 3 SNF choices in order of preference and she will require an insurance authorization/precert for SNF once she has an accepting SNF. [place] of Choice Given: Yes Level of Care Discussed: [facility] Financial Disclosure Provided: Yes Financial Disclosure Comments: [facility] SNF Provider Lists [id number] an [id number] given to patient at bedside to review and provide SNF choices. Provider List: [facility] Provider list within the patient's requested geographic area shared with the patient/family: Yes within: 15 miles of zip code: [address] (Patient also requesting a list for zip code [address].) Quality and resource use metrics shared with [...] DATE: September 21, 2024 TIME: 8:38 AM [facility] 09-20-2024 Note HNO ID: [id number] Author: CONCEPCION KEEN MD Service: Hospital Medicine Author Type: Physician Type: Progress Notes Filed: 09/20/2024 16:05 Note Text: DEPARTMENT OF HOSPITAL MEDICINE PROGRESS NOTE SERVICE DATE: 09/20/2024 SERVICE TIME: 4:04 PM Hospital Medicine/Primary Attending: Concepcion Keen,* NIGHT AND WEEKEND COVERAGE: [employer]OVER[employer]: Days: [phone], please page attending physician. Nights: [phone], please page [facility] Night coverage pager [phone]. Subjective INTERVAL HPI: Seen and examined on [...] Drain Duration External Collection Device 09/18/24 2332 [facility] 1 day Reviewed lines and needs [...] (cerebral palsy) (HCC) (POA: Yes) --Presented to [facility] for evaluation of left knee pain after a fall at home, non-ambulatory at baseline secondary to CP but concerns for current facility ability to meet her needs --XR L KNEE/HIP/ANKLE negative for acute osseous injury --CT L KNEE negative for fracture, small joint effusion noted --Pain control as needed. On Lidoderm patch, Tylenol. Added oxycodone (more content not included)... [facility] 09-19-2024 Note HNO ID: [id number] Author: CONCEPCION KEEN MD Service: Hospital Medicine Author Type: Physician Type: Progress Notes Filed: 09/19/2024 14:41 Note Text: DEPARTMENT OF HOSPITAL MEDICINE PROGRESS NOTE SERVICE DATE: 09/19/2024 SERVICE TIME: 2:33 PM Hospital Medicine/Primary Attending: Concepcion Keen,* NIGHT AND WEEKEND COVERAGE: [employer] COVERAGE: Days: [phone], please page attending physician. Nights: [phone], please page [facility] Night coverage pager [phone]. Subjective INTERVAL HPI: Seen and examined on [...] Drain Duration External Collection Device 09/18/24 2332 [facility] <1 day Reviewed lines and needs [...] (cerebral palsy) (HCC) (POA: Yes) --Presented to [facility] for evaluation of left knee pain [...] --CM consulted for (more content not included)... [facility] 09-19-2024 Note HNO ID: [id number] Author: JADE SPARROW RN Service: Care Management Author Type: Registered Nurse Type: Care Mgt Initial Assessment Filed: 09/19/2024 10:28 Note Text: CARE MANAGEMENT: ASSESSMENT AND DISCHARGE PLAN SERVICE DATE: September 19, 2024 SERVICE TIME: 10:26 AM PCP: Raf Casey MD, MD Primary Contact: Extended Emergency Contact Information Primary Emergency Contact: DaleHarper ([facility]) Mobile Relation: Son Admission Status: Observation Insurance Provider: [facility] DUAL COMPLETE HMO POS SNP Discharge Planning requested by: Per Department Practice Potential Transition Plans To Be Determined Advance Directives Current Advance Directive: Health Care Power of Bleach Supervisor, Living Will In Chart: Yes Up To Date and Valid: Yes Current Living Arrangements and Support Lives with: Spouse/significant other Type of Residence: Assisted Living Facility Does the patient have to climb stairs at home?: No Care Facility Name: [facility] Support: Children, Spouse/significant other How do you manage to accomplish the following: Independent: Medication Management Needs Assistance: Bathe/Shower, Dress, Going to the bathroom Dependent: Ambulation, Meals/Meal Prep, Transportation to appointments/community Current Services/Equipment Current Post-Acute Service(s): DME Current DME Type: Wheelchair-manual, Other: See Comment, Bedside commode (Lift Chair) Discharge Planning Patient Goal(s): Increase strength Collyer of Choice Explained: Collyer of Choice Given: No Reason Not Given: Unable to complete with this assessment - revisit Are you interested in bedside delivery of your medications? No Discharge Planning Participant(s): Patient Patient/Family Comments: Caregiver Assessment: Caregiver is ready, willing and able to meet the patient's needs as recommended by the inter-professional team: Other: See Comment (From [facility]) Transport at Discharge: Transportation Arrangements: Ambulance Needs Prior to Discharge: Needs Prior to Discharge: OT/PT Evaluation Post-Acute Discharge Plan: Review of the chart and met with the patient. The patient states she lives with her at [facility] in [place]. States pivots from her lift chair to her wheelchair and able to pivot from her wheelchair to her BSC. The patient states the [facility] provides her meals and laundry services, the patient takes care of her own medications. PT evals- Pending. CM department will continue to follow for DC needs. SIGNATURE: Jade Sparrow RN PATIENT NAME: Randolph Hunter DATE: September 19, 2024 TIME: 10:26 AM [facility] 09-02-2024 Note HNO ID: [id number] Author: GILMER COTTON, PhD Service: ? Author Type: Psychologist Type: Progress Notes Filed: 09/02/2024 12:02 Note Text: [facility] Behavioral Health Department Progress Note Randolph Hunter 09/02/2024 [id number] PROVIDER: Gilmer Cotton, PhD CPT Code: Time: 50 minutes Setting: Due to the federal emergency declaration and the need for ongoing mental health services, the following visit was completed virtually and informed consent obtained orally to reduce the risk of COVID-19 exposure. Oral consent to services related to virtual visits was obtained after information was sent via iWelcome or read to patient if Reward Gatewayhart not available." Parties Present: Patient Treatment Modality/Interventions: [...] directed once a month. blood sugar diagnostic (BioMetric SolutionUCH VERIO TEST STRIPS) test strip Test blood [...] daily. calcium car (more content not included)... [facility] 08-05-2024 Note HNO ID: [id number] Author: GILMER COTTON, PhD Service: ? Author Type: Psychologist Type: Progress Notes Filed: 08/05/2024 12:29 Note Text: [facility] Behavioral Health Department Progress Note Randolph Rascon Hunter 08/05/2024 [id number] PROVIDER: Gilmer Cotton, PhD CPT Code: Time: [...] directed once a month. blood sugar diagnostic (Remind TechnologiesTOUCH VERIO TEST STRIPS) test strip Test blood [...] Psychiatric Medication Issues: see med record DIAGNOSIS: Frederick I: Depressive Disorder recurrent Morbidly Obese CP Frederick II : Deferred Frederick III : See medical history Frederick IV: Health Frederick V: GAF 60-51 Moderate symptoms or moderate difficulty in social, o (more content not included)... [facility] 07-10-2024 Emergency department Note Pt resting quietly in bed with blanket over face. Respirations even and non labored. No coughing noted at this time. Await transport by [facility]. [facility] 07-10-2024 Emergency department Note Pt resting quietly in bed with blanket over face. Respirations even and non labored. No coughing noted at this time. Await transport by [employer]. Dr. Jha at bedside. Dr. Jha to [...] TABLET Place under the tongue. NYSTATIN (MYCOSTATIN) [id number] UNIT/GM POWDER Apply topically 2 times daily. [...] Resource Strain: Low Risk (01/02/2020) Received from [facility] Overall Financial Resource Strain (CARDIA) Difficulty of Paying Living Expenses: Not very hard Food Insecurity: Food Insecurity Present (01/02/2020) Received from [facility] Hunger Vital Sign Worried About Running Out of Food in the Last Year: Sometimes true Ran Out of Food in the Last Year: Never true Transportation Needs: Unmet Transportation Needs (01/02/2020) Received from [facility] PRAPARE - Transportation Lack of Transportation (Medical): Yes Lack of Transportation (Non-Medical): Yes Physical Activity: Inactive (01/02/2020) Received from [facility] Exercise Vital Sign Days of Exercise per Week: 0 days Minutes of Exercise per Session: 0 min Stress: Stress Concern Present (01/02/2020) Received from [facility] [place] of Occupational Health - Occupational Stress Questionnaire Feeling of Stress : Rather much Social Connections: Moderately Isolated (01/02/2020) Received from [facility] Social Connection and Isolation Panel [NHANES] Frequency of Communication with Friends and Family: More than three times a week Frequency of Social Gatherings with Friends and Family: Never Attends Adventism Services: Never Active Member of Clubs or [...] chest x-ray. [facility], to include gabapentin and [place] Chest x-ray negative for consolidation upon my [...] Discharge 07/10/2024 12:55:44 AM PATIENT REFERRED TO: [facility] Address: [address], [place] [address] Schedule an appointment as soon as possible [...] MD 07/10/24 0203 documented in this encounter [facility] 07-10-2024 Hospital Discharge instructions Александр Jha MD - 07/10/2024 12:56 AM EST If the Tessalon Perles do not work, you may purchase cough syrup [id number]. Please return to the emergency department if your symptoms change or worsen. The following attachments cannot be sent through Care Everywhere.Cough in Adults (Mosotho)documented in this encounter [facility] 07-10-[address] Jha at bedside. [facility] 07-09-[address] Jha to bedside. Pt given water. [facility] 07-09-2024 Physician Emergency department Note EMERGENCY [...] TABLET Place under the tongue. NYSTATIN (MYCOSTATIN) [id number] UNIT/GM POWDER Apply topically 2 times daily. [...] Resource Strain: Low Risk (01/02/2020) Re[facility] Overall Financial Resource Strain (CARDIA) Difficulty of Paying Living Expenses: Not very hard Food Insecurity: Food Insecurity Present (01/02/2020) Received from [facility] Hunger Vital Sign Worried About Running Out of Food in the Last Year: Sometimes true Ran Out of Food in the Last Year: Never true Transportation Needs: Unmet Transportation Needs (01/02/2020) Received from [facility] PRAPARE - Transportation Lack of Transportation (Medical): Yes Lack of Transportation (Non-Medical): Yes Physical Activity: Inactive (01/02/2020) Received from [facility] Exercise Vital Sign Days of Exercise per Week: 0 days Minutes of Exercise per Session: 0 min Stress: Stress Concern Present (01/02/2020) Received from [facility] [place] of Occupational Health - Occupational Stress Questionnaire Feeling of Stress : Rather much Social Connections: Moderately Isolated (01/02/2020) Received from [facility] Social Connection and Isolation Panel [NHANES] Frequency of Communication with Friends and Family: More than three times a week Frequency of Social Gatherings with Friends and Family: Never Attends Adventism Services: Never Active Member of Clubs or [...] chest x-ray. I [facility], to include gabapentin and [place] Chest x-ray negative for consolidation upon my [...] Discharge 07/10/2024 12:55:44 AM PATIENT REFERRED TO: [facility] [address] [id number] Schedule an appointment as soon as possible [...] Medicine Provider Александр Jha MD 07/10/24 0203 [facility] 06-30-2024 Note HNO ID: [id number] Author: GILMER COTTON, PhD Service: ? Author Type: Psychologist Type: Progress Notes Filed: 06/30/2024 11:53 Note Text: [facility] Behavioral Health Department Progress Note Randolph Hunter 06/30/2024 [id number] PROVIDER: Gilmer Cotton, PhD CPT Code: Time: 50 minutes Setting: Due to the federal emergency declaration and the need for ongoing mental health services, the following visit was completed virtually and informed consent obtained orally to reduce the risk of COVID-19 exposure. Oral consent to services related to virtual visits was obtained after information was sent via iWelcome or read to patient if Reward Gatewayhart not available." Parties Present: Patient Treatment Modality/Interventions: [...] the Meetings and can work w the [employer] That may likely help her mood in [...] directed once a month. blood sugar diagnostic (Dualog VERIO TEST STRIPS) test strip Test blood [...] test meter (CO (more content not included)... [facility] 05-02-2024 Note HNO ID: [id number] Author: GILMER COTTON, PhD Service: ? Author Type: Psychologist Type: Progress Notes Filed: 05/02/2024 12:11 Note Text: [facility] Behavioral Health Department Progress Note Randolph Hunter 05/02/2024 [id number] PROVIDER: Gilmer Cotton, PhD CPT Code: Time: [...] directed once a month. blood sugar diagnostic (BioMetric SolutionUCH VERIO TEST STRIPS) test strip Test blood [...] Issues: No change from previous appointment DIAGNOSIS: Frederick I: Depressive Disorder recurrent Morbidly Obese CP Frederick II : Deferred Frederick III : See medical history Frederick IV: Health Frederick V: GAF 60-51 Moderate symptoms or moderate difficulty in social, occupational or school functioning TREATMENT PROGRESS/ASSESSMENT: Progressing satisfactorily. TREATMENT PLAN/GOALS: (more content not included)... [facility] 03-04-2024 Note HNO ID: [id number] Author: GILMER COTTON, PhD Service: ? 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 blood sugar diagnostic (BioMetric SolutionUCH VERIO TEST STRIPS) test strip Test blood [...] Issues: No change from previous appointment DIAGNOSIS: Frederick I: Depressive Disorder recurrent Morbidly Obese CP Frederick II : Deferred Frederick III : See me (more content not included)... [facility] 02-10-2024 History of Present illness Narrative Assessments [...] Test Results/Process Orders 10 [] Staff telephones [facility], Nursing Homes/Clarify Orders 10 [] Routine Transfer [...] with plan . documented in this encounter [facility] 02-10-2024 Hospital Discharge instructions Maria Isabel Wilson RN - 02/10/2024 10:45 AM EDT Ordered treatment completed and patient is healed. Patient discharged without any issues. All questions answered. Call the clinic if your wound reopens or a new wound appears at [phone]. Edema/Swelling: Avoid standing for long periouds of [...] promote wound healing documented in this encounter [facility] 01-29-2024 Note HNO ID: [id number] Author: GILMER COTTON, PhD Service: ? Author Type: Psychologist Type: Progress Notes Filed: 01/29/2024 12:00 Note Text: [facility] Behavioral Health Department Progress Note Randolph Hunter 01/29/2024 [id number] PROVIDER: Gilmer Cotton, PhD CPT Code: Time: [...] it is slow to get the 2 [employer] w 80 residences each up to speed [...] directed once a month. blood sugar diagnostic (Dualog VERIO TEST STRIPS) test strip Test blood [...] Issues: No change from previous appointment DIAGNOSIS: Frederick I: Depressive Disorder recurrent Morbidly Obese CP Frederick II : Deferred Frederick III : See medical history Frederick IV: Health Frederick V: GAF 60-51 Moderate symptoms or moderate difficulty in social, occupational or school functioning TREATMENT PROGRESS/ASSESSMENT: Progressing (more content not included)... [facility] 01-27-2024 History of Present illness Narrative Associated Order(s): Debridement Post-Procedure Diagnose(s): Pressure ulcer of right foot, stage 3 (HCC) Images from the original note were not included. [facility] Wound Care Progress Note CHIEF [...] provider verified the correct patient, procedure, equipment, support teacher, and site/side marked as required. Debridement Details [...] attached Discharge Instructions documented in this encounter [facility] 01-27-2024 Hospital Discharge instructions Maria Isabel Wilson RN - 01/27/2024 1:15 PM EDT Follow-up Appointments: Return Appointment in 1 week. Call [facility] center at [phone], [facility] at [phone], or [facility] Wound center at [phone]. Edema/Swelling: Avoid standing for long periouds of [...] secure with tape. documented in this encounter [facility] 01-27-2024 Note [facility] Wound Care Progress Note CHIEF [...] provider verified the correct patient, procedure, equipment, support teacher, and site/side marked as required. Debridement Details [...] Diabetic Ulcer Foot Left (Active) Wound Image 08/07/24 1303 Site Assessment Granulation 01/27/24 1303 Andra-Wound [...] Paper tape Please see attached Discharge Instructions [facility] 01-20-2024 History of Present illness Narrative Associated Order(s): Debridement Post-Procedure Diagnose(s): Pressure ulcer of right foot, stage 3 (HCC) Images from the original note were not included. [facility] WND OSTOMY [address] [place] [address] Loc: [phone] Wound Care Visit - New Patient Progress [...] ti,es a day, Disp: , Rfl: HYDROcodone-acetaminophen ([place]) 5-325 MG tablet, Take 1 tablet by [...] the tongue., Disp: , Rfl: nystatin (Mycostatin) 005043 UNIT/GM powder, Apply topically 2 times daily., [...] provider verified the correct patient, procedure, equipment, support teacher, and site/side marked as required. Debridement Details [...] (Active) Wound Image 01/20/24 1448 Site Assessment Red;[place] 01/20/24 1448 Andra-Wound Assessment [place] 01/20/24 1448 [...] Test Results/Process Orders 10 [x] Staff telephones VAT OPERATOR, Nursing Homes/Clarify Orders 10 [] Routine Transfer [...] or more Points) documented in this encounter [facility] 01-20-2024 Hospital Discharge instructions Maria Isabel Wilson RN - 01/20/2024 2:45 PM EDT Follow-up Appointments: Return Appointment in 1 week. Call [place] [facility] at [phone], [facility] at [phone], or [facility] Wound center at [phone]. Edema/Swelling: Avoid standing for long periouds of [...] secure with tape. documented in this encounter [facility] 01-20-2024 Note Encounter addended b y: Tania Osei RN on: 01/21/2024 10:33 AM Actions taken: Care Teams modified, LDA properties accepted, Charge Capture section accepted [facility] 12-25-2023 Note HNO ID: [id number] Author: GILMER COTTON, PhD Service: ? 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 daughter is a month [...] directed once a month. blood sugar diagnostic (BioMetric SolutionUCH VERIO TEST STRIPS) test strip Test blood [...] Issues: No change from previous appointment DIAGNOSIS: Frederick I: Depressive Disorder recurrent Morbidly Obese CP Frederick II : Deferred Frederick III (more content not included)... [facility] 12-16-2023 Emergency department Note Patient wheeled out ED for transport to residence. discharge instructions sent to facility with patient. No further questions. Respirations even and non labored. No acute distress. A&O x4. Gifty Cornell RN 12/16/23 0015 [facility] 12-16-2023 Emergency department Note Patient wheeled out [...] Resource Strain: Low Risk (01/02/2020) Received from [facility] Overall Financial Resource Strain (CARDIA) Difficulty of Paying Living Expenses: Not very hard Food Insecurity: Food Insecurity Present (01/02/2020) Received from [facility] Hunger Vital Sign Worried About Running Out of Food in the Last Year: Sometimes true Ran Out of Food in the Last Year: Never true Transportation Needs: Unmet Transportation Needs (01/02/2020) Received from [facility] PRAPARE - Transportation Lack of Transportation (Medical): Yes Lack of Transportation (Non-Medical): Yes Physical Activity: Inactive (01/02/2020) Received from [facility] Exercise Vital Sign Days of Exercise per Week: 0 days Minutes of Exercise per Session: 0 min Stress: Stress Concern Present (01/02/2020) Received from [facility] [place] of Occupational Health - Occupational Stress Questionnaire Feeling of Stress : Rather much Social Connections: Moderately Isolated (01/02/2020) Received from [facility] Social Connection and Isolation Panel [NHANES] Frequency of Communication with Friends and Family: More than three times a week Frequency of Social Gatherings with Friends and Family: Never Attends Adventism Services: Never Active Member of Clubs or [...] about putting in her observation unit at [facility] for 24 hours of IV [...] MD 12/15/231935 Patient to room 7 via [facility] for c/o a left foot ulcer, lower leg erythema, and a headache. Patient reports she has had her foot ulcer for a couple of months. V/S obtained, call light within reach. documented in this encounter [facility] 12-15-2023 Hospital Discharge instructions Karen Gallardo [...] Care Everywhere.Cellulitis (Skin Infection) Discharge Instructions, Adult (Mosotho)documented in this encounter [facility] 12-15-2023 Emergency department Triage note Patient to room 7 via [facility] for c/o a left foot ulcer, lower leg erythema, and a headache. Patient reports she has had her foot ulcer for a couple of months. V/S obtained, call light within reach. [facility] 12-15-2023 Physician Emergency department Note EMERGENCY [...] Resource Strain: Low Risk (01/02/2020) Received from [facility] Overall Financial Resource Strain (CARDIA) Difficulty of Paying Living Expenses: Not very hard Food Insecurity: Food Insecurity Present (01/02/2020) Received from [facility] Hunger Vital Sign Worried About Running Out of Food in the Last Year: Sometimes true Ran Out of Food in the Last Year: Never true Transportation Needs: Unmet Transportation Needs (01/02/2020) Received from [facility] PRAPARE - Transportation Lack of Transportation (Medical): Yes Lack of Transportation (Non-Medical): Yes Physical Activity: Inactive (01/02/2020) Received from [facility] Exercise Vital Sign Days of Exercise per Week: 0 days Minutes of Exercise per Session: 0 min Stress: Stress Concern Present (01/02/2020) Received from [facility] [place] of Occupational Health - Occupational Stress Questionnaire Feeling of Stress : Rather much Social Connections: Moderately Isolated (01/02/2020) Received from [facility] Social Connection and Isolation Panel [NHANES] Frequency of Communication with Friends and Family: More than three times a week Frequency of Social Gatherings with Friends and Family: Never Attends Adventism Services: Never Active Member of Clubs or [...] no surrounding erythema or cellulitis there. [BM] 182 Will check labs including CBC, BMP, ESR, CRP, blood cultures. Will obtain left foot x-ray to evaluate for osteomyelitis. [BM] 183 Admission reviewed under Dr. Sun from 2022 patient admitted for similar process with left [...] Emergency Medicine Provider Gloria Bangura DO 12/15/231848 [facility] 12-15-2023 Physician Emergency department Note This [...] about putting in her observation unit at [facility] for 24 hours of IV antibiotics versus discharging home with oral antibiotics. After shared decision-making she elected to go home. I do think that this is a safe plan. She lives in assisted living and they can help her with continuing to monitor her wound. Gave her strict return precautions and discharged in stable condition. Karen Gallardo MD 12/15/231935 [facility] 07-20-2023 Emergency department Note Physician's arrived; pt removed from urine collection device and pts own attends placed on pt per her request. Pts belongings in bag at bedside. Report to Physician's. Veronika Bae RN 07/20/23 0844 [facility] 07-20-2023 Emergency department Note Physician's arrived; [...] the tables. MD notified Gifty Cornell RN 07/20/2343 Report given to Gifty MCCRACKEN & Chasidy MCCRACKEN. Patient still in radiology. Pia Caraballo RN 07/19/232318 Dispo per imaging :) Chasidy Fernandez RN 07/19/232253 Pt placed up for discharge. No discharge paperwork complete at this time. Once orders are complete and discharge paperwork complete by ER DR Pt will be discharged. Chasidy Fernandez RN 07/19/232251 This RN requested orders from ER DR. Chasidy Fernandez RN 07/19/232025 EMERGENCY DEPARTMENT ENCOUNTER [...] No family history. She lives in a ch[facility] facility and is on Coumadin as she [...] Height: 1.575 m (5' 2") Medications HYDROcodone-acetaminophen ([place]) 5-325 MG per tablet 1 tablet (has no administration in time range) HYDROcodone-acetaminophen ([place]) 5-325 MG per tablet 1 tablet (1 tablet Oral Given 07/19/232030) 72-year-old female presents for frequent falls, is in a detention for this purpose, complains of right hip pain and right knee pain and neck pain MDM elements: The patient presented with chief complaint of see above. The differential diagnosis associated with this patient's presentation includes right hip pain from contusion versus fracture of the right hip versus pelvic fracture. Will evaluate bilateral knees for underlying fractures. Patient is on Coumadin and fails Japanese CT head rules and CT C-spine rules by virtue of age, needs CT head and CT cervical spine as well. Pain controlled with [place]. No lab work required, this was mechanical fall to which the patient is very vulnerable and for which purpose she is in a detention with PT and 12/01 wheelchair. Our workup consisted of ordering/reviewing: X-ray bilateral knees x-ray right femur CT pelvis without contrast, CT head and neck without contrast. To aid in management, I performed an independent interpretation of Xray(s) see below CT scan(s) see below. I also reviewed external records from [facility] to obtain collateral history. The patient will [...] this is why she lives in a detention with 24/7 monitoring and physical therapy that visits her every day. I encouraged her to stay in her wheelchair to get around safely, and if she is transferring from the wheelchair to the toilet or other maneuvers at home, she should do so with nursing staff or PT nearby. She is already on [place] at home for pain so no additional [...] Mendez who is her osteoarthritis specialist in [place]; this is very good follow-up. The patient [...] toilet when she fell. She resides at [address] She currently is working with a physical therapist and is in a wheelchair. Patient hooked up to Orecon due to incontinence. She also has right knee bruising that is from her repeatedly hitting it on her wheelchair. She denies hitting her head or neck during fall. She is on coumadin. Call light within reach. documented in this encounter [facility] 07-20-2023 Emergency department Note [facility] with an ambulette/wheelchair van. Chasidy MCCRACKEN spoke with Physician's to inform them that the pt is non ambulatory and needed a stretcher. Physician's states they will have a stretcher here "within the hour." Veronika Bae RN 07/20/23 0717 [facility] 07-20-2023 Hospital Discharge instructions Cuba Anna MD [...] attachments cannot be sent through Care Everywhere.Osteoarthritis (Mosotho)Preventing Falls in Older Adults (Mosotho)Hip Pain ED (Mosotho)documented in this encounter [facility] 07-20-2023 Emergency department Note Patient pressed call light to request pain medication. States pain is in shoulders and down the back from laying on the tables. notified Gifty Cornell RN 07/20/23 0044 [facility] 07-19-2023 Emergency department Note Report given to Gifty MCCRACKEN & Chasidy RN. Patient still in radiology. Pia Caraballo RN 07/19/23 3076 [facility] 07-19-2023 Emergency department Note Dispo per imaging :) Chasidy Fernandez RN 07/19/23 3575 [facility] 07-19-2023 Emergency department Note Pt placed up for discharge. No discharge paperwork complete at this time. Once orders are complete and discharge paperwork complete by ER DR Pt will be discharged. Chasidy Fernandez RN 07/19/23 7874 [facility] 07-19-2023 Emergency department Note This RN requested orders from ER DR. Chasidy Fernandez RN 07/19/232025 [facility] 07-19-2023 Emergency department Triage note Patient is here for right hip pain. She was transferring to the toilet when she fell. She resides at [address] She currently is working with a physical therapist and is in a wheelchair. Patient hooked up to Orecon due to incontinence. She also has right knee bruising that is from her repeatedly hitting it on her wheelchair. She denies hitting her head or neck during fall. She is on coumadin. Call light within reach. [facility] 07-19-2023 Physician Emergency department Note EMERGENCY [...] No family history. She lives in a ch[facility] facility and is on Coumadin as she [...] loss. Report Dictated on Electronically Signed By: Ablina Newton MD Electronically Signed Date/Time: 07/19/2023 11:02 [...] Height: 1.575 m (5' 2") Medications HYDROcodone-acetaminophen ([place]) 5-325 MG per tablet 1 tablet (has no administration in time range) HYDROcodone-acetaminophen ([place]) 5-325 MG per tablet 1 tablet (1 tablet Oral Given 07/19/232030) 72-year-old female presents for frequent falls, is in a detention for this purpose, complains of right hip pain and right knee pain and neck pain MDM elements: The patient presented with chief complaint of see above. The differential diagnosis associated with this patient's presentation includes right hip pain from contusion versus fracture of the right hip versus pelvic fracture. Will evaluate bilateral knees for underlying fractures. Patient is on Coumadin and fails Japanese CT head rules and CT C-spine rules by virtue of age, needs CT head and CT cervical spine as well. Pain controlled with [place]. No lab work required, this was mechanical fall to which the patient is very vulnerable and for which purpose she is in a detention with PT and 24/7 wheelchair. Our workup consisted of ordering/reviewing: X-ray bilateral knees x-ray right femur CT pelvis without contrast, CT head and neck without contrast. To aid in management, I performed an independent interpretation of Xray(s) see below CT scan(s) see below. I also reviewed external records from [facility] to obtain collateral history. The patient will [...] this is why she lives in a detention with 24/7 monitoring and physical therapy that visits her every day. I encouraged her to stay in her wheelchair to get around safely, and if she is transferring from the wheelchair to the toilet or other maneuvers at home, she should do so with nursing staff or PT nearby. She is already on [place] at home for pain so no additional [...] Mendez who is her osteoarthritis specialist in [place]; this is very good follow-up. The patient [...] Medicine Provider Cuba Anna MD 07/20/23 0110 [facility] 09-06-2022 Emergency department Note RN called back from Residence for report after patient left. This RN updated RN. No questions or concerns Lucy Jones RN 09/06/22 1115 [facility] 09-06-2022 Emergency department Note RN called back from Residence for report after patient left. This RN updated RN. No questions or concerns Lucy Jones RN 09/06/22 1115 This RN attempted report at [facility] for patient. RN's busy, special education secretary took RN name and number to return call for report if wanted. Lucy Jones RN 09/06/22 1018 DM ETA 20-30 min ([phone]) Lucy Jones RN 09/06/22 0953 Patient resting with eyes closed. Respirations even and unlabored. RN called about work order for call light / panel. Will be there soon to fix. Lucy Jones RN 09/06/22 0944 Pt back in room Lucy Jones RN 09/06/[address] Lucy Jones RN 09/06/22 0866 Patient yelling in room, due to call [...] stable condition. Bárbara Hogan RN 09/06/22 0226 Report of to bárbara Younger RN 09/06/22220 Emergency Department Encounter Location: [facility] EMERGENCY DEPT Patient: Patsy Juan : 1950 [...] 445 ms QTC Interval 457 ms P Frederick 49 degrees QRS Frederick -29 degrees T Wave Frederick 11 degrees MA Interval 149 ms XR shoulder 2+ views [...] Result Upper pelvis is excluded from the iomjs-gc-uwzu. No fracture or dislocation of the imaged [...] are mis-transcribed.) OSMAN MCCORMACK MD Acute Care [facility] Osman Mccormack MD 09/06/22 1523 Emergency Department Encounter Location: [facility] EMERGENCY DEPT Patient: Patsy Juan : 1950 [...] 445 ms QTC Interval 457 ms P Frederick 49 degrees QRS Frederick -29 degrees T Wave Frederick 11 degrees MA Interval [address] head wo IV [...] Result Upper pelvis is excluded from the jsgan-pr-zekz. No fracture or dislocation of the imaged [...] RN 09/06/22 0221 documented in this encounter [facility] 09-06-2022 Emergency department Note This RN attempted report at [facility] for patient. RN's busy, special education secretary took RN name and number to return call for report if wanted. Lucy Jones RN 09/06/22 1018 [facility] 09-06-2022 Emergency department Note DM ETA 20-30 min ([phone]) Lucy Jones RN 09/06/22 0953 [facility] 09-06-2022 Hospital Discharge instructions Gloria Frost [...] through Care Everywhere.Getting Up From a Fall (Mosotho)documented in this encounter [facility] 09-06-2022 Emergency department Note Patient resting with eyes closed. Respirations even and unlabored. RN called about work order for call light / panel. Will be there soon to fix. Lcuy Jones RN 09/06/22 0944 [facility] 09-06-2022 History of Present illness Narrative Department of Trauma / Critical Care Tertiary Survey Date of Trauma: 09/06/2022 1:36 AM MARIANELA/HPI: 72 y.o. female status post fall from standing. The incident happened around 0120 on 09/06/[address] [facility]. When the event happened the [...] fracture or dislocation. Report Dictated on Workstation: [employer] Electronically Signed By: Tiago Charles Electronically Signed [...] fracture or dislocation. Report Dictated on Workstation: [employer] Electronically Signed By: Tiago Charles Electronically Signed [...] IV contrast Result Date: 09/06/2022 Patient Name: DRAKE ECHO : 1950 [facility]#: [id number] Exam Date/Time: 09/06/2022 02:11 Procedure: CT HEAD [...] IV contrast Result Date: 09/06/2022 Patient Name: DRAKE ECHO [...] 1 view Result Date: 09/06/2022 Patient Name: DRAKE ECHO : 1950 Exam Date/Time: 09/06/2022 02:06 [...] 09/06/2022 [facility] 1950 [id number] Exam Date/Time: 09/06/2022 02:07 Procedure: XR PELVIS 1-2 VIEWS Ordering Provider: HUTSON RICHARD Reason For Exam: TRAUMA PELVIS: CLINICAL INDICATION: Pain, trauma. TECHNIQUE: AP. Technical note: Upper pelvis is excluded from the domzz-rp-hcxw. COMPARISON: None. FINDINGS: There is no evidence for fracture or dislocation. The hips joints are unremarkable. The imaged sacroiliac joints are normal. No bone lesion is identified. There is no soft tissue abnormality. Surgical clips project over the right groin. Upper pelvis is excluded from the jmijb-he-mptt. No fracture or dislocation of the imaged [...] AT RLE: AT LUE: AT LLE: AT SATHYA Jimenez NP 09/06/22 9:09 AM documented in this encounter [facility] 09-06-2022 Emergency department Note Pt back in room Lucy Jones RN 09/06/22 0832 [facility] 09-06-2022 Emergency department Note Pt at CT Lucy Jones RN 09/06/22 0826 [facility] 09-06-2022 Emergency department Note Patient yelling [...] this time Lucy Jones RN 09/06/22 0739 [facility] 09-06-2022 Note NOTE: This result is for medical treatment only. Analysis performed using non-forensic procedures. [facility] 09-06-2022 Emergency department Note Pt to x-ray in stable condition. Bárbara Hogan RN 09/06/22225 [facility] 09-06-2022 Emergency department Note Report of to bárbara Younger RN 09/06/22220 [facility] 09-06-2022 Emergency department Note Bed: 23 Expected date: Expected time: Means of arrival: Comments: SX TEAM Aaron Wallace RN 09/06/22220 [facility] 09-06-2022 Physician Emergency department Note Emergency Department Encounter Location: [facility] EMERGENCY DEPT Patient: Patsy Juan : 1950 [...] 445 ms QTC Interval 457 ms P Frederick 49 degrees QRS Frederick -29 degrees T Wave Frederick 11 degrees MA Interval 149 ms XR shoulder 2+ views [...] No cervical spine fracture. Report Dictated on Workstation: [employer] Electronically Signed By: Tiago Melvin Electronically Signed Date/Time: 09/06/2022 2:24 AM EDT XR pelvis 1 or 2 views Final Result Upper pelvis is excluded from the vkrlf-ys-nnby. No fracture or dislocation of the imaged pelvis. Report Dictated on Workstation: [employer] Electronically Signed By: Tiagoholli Charles Electronically Signed Date/Time: 09/06/2022 2:12 AM EDT XR chest 1 view Final Result No focal consolidation or pulmonary edema. Report Dictated on Workstation: [employer] Electronically Signed By: Tiagoholli Charles Electronically Signed Date/Time: 09/06/2022 2:12 AM [...] are mis-transcribed.) OSMAN MCCORMACK MD [employer] Osman Mccormack MD 09/06/22 1523 [facility] Phone: 09-06-2022 Physician Emergency department Note Emergency Department Encounter Location: [facility] EMERGENCY DEPT Patient: Patsy Juan : 1950 [...] 445 ms QTC Interval 457 ms P Frederick 49 degrees QRS Frederick -29 degrees T Wave [place] 11 degrees MA Interval [address] head wo IV [...] Result Upper pelvis is excluded from the gtkab-kg-mtst. No fracture or dislocation of the imaged [...] [employer] Gloria Frost DO Resident 09/06/22 1314 [facility] Phone: 04-25-2022 Miscellaneous Notes Left a detailed message for patient. Let her know that new PCP will need to be notified if there is issues with filling medicaiton. Advised to contact office with questions. I will send patient a [employer] message asking about PCP. I think she is now seeing a physician at her assisted living facility. Images from the original note were not included. DENIED. Isabela Petit LPN Prior Authorization has been completed online at [employer] for Cycanocobalamin, will await response. WILLIS- [id number] Please keep encounter open until final decision has been received and documented from insurance company. Isabela Petit LPN documented in this encounter [facility] 03-12-2022 Note Hospitalist Discharg e Summary Randolph [...] results reviewed, no signs of osteomyelitis. Appreciate hotel supplies salesperson recommendations On the day of discharge patient's [...] MG extended re (more content not included)... [facility] 03-12-2022 Hospital course Narrative Images from the [...] results reviewed, no signs of osteomyelitis. Appreciate hotel supplies salesperson recommendations On the day of discharge patient's [...] as: DESYREL Vitamin D3 50 MCG (1999 DC) Caps warfarin 5 MG tablet Commonly known as: COUMADIN STOP taking these medications furosemide 20 MG tablet Commonly known as: LASIX guaiFENesin 600 MG extended release tablet Commonly known as: MUCINEX Where to Get Your Medications These medications were sent to [address] - P [phone] - F [phone] [address] [facility] [place] [address] amoxicillin-clavulanate 875-125 MG per tablet doxycycline hyclate 100 MG capsule polyethylene glycol 17 g packet Recommended Follow-up: No follow-up provider specified. Readmission Risk Risk of Unplanned Readmission: 16 Complexity of Follow up: [] Moderate Complexity: follow up within 7-14 calendar days (47690) [x] Severe Complexity: follow up within 7 calendar days (79464) Follow up Testing, Pending results or Referrals [...] MD Division of Hospitalist Medicine [place] Medical [place] [place]12/[place]22, 2:01 PM Images [...] results reviewed, no signs of osteomyelitis. Appreciate hotel supplies salesperson recommendations On the day of discharge patient's [...] as: DESYREL Vitamin D3 50 MCG (1999 DC) Caps warfarin 5 MG tablet Commonly known as: COUMADIN STOP taking these medications furosemide 20 MG tablet Commonly known as: LASIX guaiFENesin 600 MG extended release tablet Commonly known as: MUCINEX Where to Get Your Medications These medications were sent to [address] [phone] - F [phone] [place] [address] amoxicillin-clavulanate 875-125 MG per tablet doxycycline hyclate 100 MG capsule polyethylene glycol 17 g packet Recommended Follow-up: No follow-up provider specified. Readmission Risk Risk of Unplanned Readmission: 15 Complexity of Follow up: [] Moderate Complexity: follow up within 7-14 calendar days (18984) [x] Severe Complexity: follow up within 7 calendar days (19812) Follow up Testing, Pending results or Referrals [...] MD Division of Hospitalist Medicine [place] Medical [place] [place]/11/2022, 1:36 PM documented in this encounter [facility] Work Phone: 03-11-2022 History of Present illness Narrative [facility] called this nurse to change time of fern picker. Pt agreed to stay till morning. This nurse called [facility] 2 to inform about new fern picker time of 9:30 am. Report called to Nurse Copeland at [facility]. Occupational Therapy Facility/Department: [facility] Occupational Therapy Daily Treatment Note Name: Randolph Hunter : 1950 Date of Service: 03/11/2022 Pt's chart reviewed. Holding therapy today due to >5 INR. Will continue to follow and re-attempt once within therapeutic range. Dianne Schuster OT Physical Therapy Facility/Department: [facility] Daily Treatment Note Name: Randolph Hunter : 1950 Date of Service: 03/11/2022 Pt's chart reviewed. Holding therapy today due to >5 INR. Will continue to follow and re-attempt once within therapeutic range. Jaida Matamoros PTA Occupational Therapy Facility/Department: [facility] Occupational Therapy Initial Assessment [...] Social/Functional History Social/Functional History Lives With: Spouse ([place].) Type of Home: Assisted living Home Layout: [...] Assistance: Non-ambulatory Transfer Assistance: Needs assistance Active Counter Weigher: No Patient's Counter Weigher Info: daughter Mode of Transportation: Car Education: na Occupation: Retired Type of Occupation: worked at [employer] Objective Heart Rate: 68 Heart Rate [...] degrees shoulder flexion grossly observed AM-PAC Score AM-[facility] Inpatient Daily Activity Raw Score: 16 (03/10/22 1444) AM-[facility] Inpatient ADL T-Scale Score : 35.96 (03/10/22 1444) ADL Inpatient CMS 0-100% Score: 53.32 (03/10/22 144) ADL Inpatient CMS G-Code Modifier : CK [...] were not included. Hospitalist Progress Note 03/10/2022 [phone]: Please page me ([phone]) for patient care issues. [phone]: Please page [facility] night Hospitalist for any issues. Subjective: Admit Date: 03/08/2022 PCP: No primary care provider on file. Room#: 144/1442 Interval History: Patient is a sitting on [...] results reviewed, no signs of osteomyelitis. Appreciate hotel supplies salesperson recommendations Pharmacy is managing Coumadin dosing. -am labs, replace lytes prn -increase activity -DVT prophylaxis: [] Lovenox [] Heparin [] SCDs [x] Encourage ambulation [x] Already on Anticoagulation Advance Directive: Limited Discharge planning: TBD Demetris Stone MD Division of Hospitalist Medicine [place]patient Medical [place] [place]AGER: [phone] Occupational Therapy Facility/Department: [facility] Occupational Therapy Initial Assessment [...] Will follow. Thank you. Physical Therapy Facility/Department: [facility] Physical Therapy Initial Assessment [...] Social/Functional History Social/Functional History Lives With: Spouse ([place].) Type of Home: Assisted living Home Layout: [...] Assistance: Non-ambulatory Transfer Assistance: Needs assistance Active Counter Weigher: No Patient's Counter Weigher Info: daughter Mode of Transportation: Car Education: na Occupation: Retired Type of Occupation: worked at [employer]: Within Functional [employer] [...] to side-step toward the HOB. Able to supervisor joiners FWW for 10 seconds with moderate assistance for balance. Balance Posture: Fair Sitting - Static: Good;- Sitting - Dynamic: Good;- Standing - Static: Poor Standing - Dynamic: Poor OutComes Score AM-PAC Score AM-PAC Inpatient Mobility Raw Score : 12 (03/09/22 1316) AM-PAC Inpatient T-Scale Score : 35.33 (03/09/22 1316) Mobility Inpatient CMS 0-100% Score: 68.66 (03/09/22 1316) Mobility Inpatient CMS G-Code Modifier : CL [...] were not included. Hospitalist Progress Note 03/09/2022 [phone]: Please page me ([phone]) for patient care issues. [phone]: Please page [facility] night Hospitalist for any issues. 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 [...] results reviewed, no signs of osteomyelitis. Appreciate hotel supplies salesperson recommendations On the day of discharge patient's [...] Your Medications These medications were sent to [place] [address] [place] [address] [place] - P [phone] - F [phone] [place] [address] (more content not included)... [facility] 03-11-2022 Hospital Discharge instructions Cleo Graff LPN - 03/11/2022 11:55 AM EDT Your physician has ordered skilled home care services for you. Your home care will be provided by: [facility] [phone] Viktoriya Danielson RN - 03/11/2022 5:43 PM [...] Holly Mobile Relation: Child Secondary Emergency Contact: Adam Hunter ([place]) Mobile Relation: Spouse Past Surgical History: History [...] Dependent Dressing Dependent Toileting Dependent Feeding Independent Burn Out Tender Lace Assisted Med Delivery whole Wound Care Documentation and Therapy: Wound 03/08/22 Foot Anterior;Left (Active) Wound Etiology Diabetic 03/10/222057 Dressing Status Clean;Dry;Intact 03/10/222057 Wound Cleansed Irrigated with saline 03/10/22210 Dressing/Treatment Xeroform;Loyda wrap;Other (comment) 03/10/22 021 Wound Length (cm) 2 cm 03/08/221999 Wound Width (cm) 2 cm 03/08/221999 Wound Surface Area (cm^2) 4 cm^2 03/08/221999 Wound Assessment Other (Comment) 03/10/222057 Drainage Amount Scant 03/10/22 0810 Odor None 03/10/22 0810 Andra-wound Assessment Blanchable erythema;Dry/flaky;Intact 03/10/22 021 Number of days: 2 Elimination: Continence: Bowel: Yes Bladder: Yes Urinary Catheter: None Colostomy/Ileostomy/Ileal Conduit: No Date of Last BM: 03/11/22 Intake/Output Summary (Last 24 hours) at 03/11/2022 1740 Last data filed at 03/10/2022 1822 Gross per 24 hour Intake 480 ml Output 800 ml Net -320 ml I/O last 3 completed shifts: In: 600 [P.O.:600] Out: 800 [Urine:800] Safety Concerns: {[facility] Safety Concerns:128456059} Impairments/Disabilities: {[facility] Impairments/Disabilities:093325530 } Nutrition Therapy: Current Nutrition Therapy: - Oral Diet: General Routes of Feeding: Oral Liquids: Thin Liquids Daily Fluid Restriction: no Last Modified Barium Swallow with Video (Video Swallowing Test): not done Treatments at the Time of Hospital Discharge: Respiratory Treatments: no Oxygen Therapy: is not on home oxygen therapy. Ventilator: - No ventilator support Rehab Therapies: none Weight Bearing Status/Restrictions: {[facility] Weight Bearin} Other Medical Equipment (for information [...] applicable) Name: Address: Dialysis Schedule: Phone: Fax: Disk Operator/Leasing Consultant signature: {Esignature:302051459} PHYSICIAN SECTION Prognosis: {Prognosis:1422146409} Condition at Discharge: { Patient Condition:398730731} Rehab Potential (if transferring to Rehab): {Prognosis:9944589381} Recommended Labs or Other Treatments After Discharge: Physician Certification: I certify the above information and transfer of Randolph Hunter is necessary for the continuing treatment of the diagnosis listed and that she requires {Admit to Appropriate Level of Care:14687} for {GREATER/LESS:875164232} 30 days. Update Admission H&P: {CHP DME Changes in HandP:888019238} PHYSICIAN SIGNATURE: {Esignature:702644253} documented in this encounter [facility] Phone: 03-06-2022 Instructions Steven Pelaez - 03/06/2022 9:21 AM EDT Would recommend natalia to left foot daily Continue with padding on dressing to eliminate pressure Would highly recommend use of heel boots while sleeping to prevent pressure sores from developing. documented in this encounter 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 02-28-2022 Miscellaneous Notes Patient called in requesting order for wound care. Patient stated that she is at a assisted living facility and they stated by law they most have and order from physician to preform wound care. Please place order. Erlinda Ramsey LPN documented in this encounter [facility] 02-27-2022 History of Present illness Narrative Patient daughter picked up natalia. Erlinda Ramsey LPN documented in this encounter [facility] 02-27-2022 Miscellaneous Notes Returned patients call. Informed patient that her daughter can come fern picker natalia we will just have to make [...] instructions. Patient can come to office to fern picker natalia. We will schedule a nurse visit. Erlinda Ramsey LPN Images from the original note were not included. Steven Matamoros RN; [facility] Podiatry Pool 52 minutes ago (3:52 PM) I have not yet ordered the natalia to pharmacy. If she wishes to fern picker at office, that may be the easiset option Steven Pelaez DPM Patient called in asking if Natalia has been sent to pharmacy? Patient asking if she can come by and fern picker Natalia from the office? Patient states she had to cancel this morning's appointment because her transportation never showed. Patient asking for order for Natalia to be sent to [facility]. Rescheduled follow up appointment for 03/06. documented in this encounter [facility] 02-12-2022 Miscellaneous Notes Patient called in looking for results. Message from Dr. Pelaez given to patient. She verbalized understanding. documented in this encounter [facility] 02-10-2022 History of Present illness Narrative Radiology [...] 2022 9:22 AM documented in this encounter [facility] 02-10-2022 Instructions Steven Pelaez - 02/10/2022 8:37 AM EDT Recommend natalia to left foot ulceration daily Would recommend placing a donut hole pad on insert to offload ulceration when wearing shoes. Color ulceration with magic marker Step on insert Place pad around marking at site of ulceration Follow-up in 2 weeks Use loyda wraps for swelling reduction. documented in this encounter [facility] 02-10-2022 History of Present illness Narrative Chief Complaint: This 71 year old female who presents with chief complaint:ulceration of left 1st metatarsal HPI Patient presents to clinic for evaluation of left foot. Patient has ulceration to the plantar aspect of left 1st metatarsa. It apparently has been present for 1.5 months. She has been seeing a hotel supplies salesperson in [place] who has been debriding and applying topical antibiotic cream. Patient is not currently wearing surgical shoe. She had similar ulceraiton last year and was treated with natalia. When she mentioned this to her hotel supplies salesperson, she was referred here. She was advised [...] directed once a month. blood sugar diagnostic ([employer] VERIO TEST STRIPS) test strip Test blood [...] H* Mental Status Change Penicillins Hives Dioxicillin Tcakova-Bvk-Whq Red* Myalgia PAST SURGICAL HISTORY Procedure Laterality [...] 2 diabetes mellitus, with fat layer exposed ([facility]) PLAN: 1. History and physical examination [...] weeks Steven Pelaez DPM Podiatry [address] [facility] [address] Dept: [phone] Dept AMB ROOMING INTAKE FLOWSHEET DATA Risk [...] Erlinda Ramsey LPN documented in this encounter [facility] 11-30-2021 Miscellaneous Notes Left a detailed message for pt with information listed below. Ava Rdz LPN TC to pt, no answer, unable to leave message d/t voicemail box is full and can not accept new messages. Alberto Carpio LPN Same dose, recheck 2 weewks Thanks, Edwin Cobian PA-C Recently in assisted living, Nurse was in today gave her dosage instructions. They company that [employer] is dealing with will send the INR report in a couple days. INR is 2.4, Taking 7.5mg Mon, Wed, 5.0mg all other days, no change in diet, no missed doses, no change in medication, no unusual bruising/bleeding. Bonnie Allen LPN documented in this encounter [facility] 11-19-2021 Miscellaneous Notes Detailed message left with [...] or narrative: no documented in this encounter [facility] 11-11-2021 Miscellaneous Notes Patient calling to ask [...] no diet changes. documented in this encounter [facility] 10-30-2021 Miscellaneous Notes Patient notified of results and provider's instructions. Patient verbalizes understanding. Lexi Arce RN Unable to reach patient. Left VM to return call to office. Please read below and advise. Gretel Jiang MA Same. Recheck one week Last INR: INR (POCT) 2.1 10/15/2021 Current dose of coumadin is: 7.5mg Wed/Thu and 5mg all other days. Last date of dose change: 09/18/21. Previous INR (date and result): 2.1 10/15/21 Additional Clinical Information or narrative: no documented in this encounter [facility] 10-15-2021 Miscellaneous Notes Left a detailed message [...] Ava Rdz LPN documented in this encounter [facility] 10-15-2021 Miscellaneous Notes Spoke with pt and went over the results. Pt verbalizes understanding. Ava Rdz LPN documented in this encounter [facility] 10-14-2021 History of Present illness Narrative Radiology [...] IV DATA: Not applicable SIGNED BY: RT Jennifer(Jessica) October 14, 2021 3:03 PM documented in this encounter [facility] 10-09-2021 Miscellaneous Notes Pt called and is notified of providers message. Pt voices understanding, and is going to call [facility]. Del Decker RN TC to pt, left message to return call to office. Alberto Carpio LPN It looks like there is a valid prescription sent 10/03/2021 for HCQ 200mg daily #28 to [facility] authorized by Kuldeep Albert Usually we don't prescribe and the new accepting provider should be able to fill crossover prescriptions. 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 Patient states that she is in process of moving into assisted living and the [facility] will see her in regards to this. Patient asking if this can be filled for a 30 day supply? Please review and advise, Lexi Arce RN TC to pt. LM to call office, ask for triage nurse to get updates. Travis Chambers LPN [facility] [employer] accepting patient transfer should refill medication. Who are the current and future providers? We generally don't prescribe this medication. Thanks, Edwin Cobian PA-C Pt is asking if provider will order this medication for her for 1 month. She states her high school sports coach will not refill it for her because [...] Del Decker RN documented in this encounter [facility] 10-08-2021 Miscellaneous Notes Patient instructed of dosage with teach back method. Verbalizes understanding. Same dose, recheck 2 weeks. Thanks, Edwin Cobian PA-C Last INR: INR (POCT) 2.1(EXT) 10/08/2021 Current dose of coumadin is: 7.5 mg Thu/Thu and 5.0 mg all other days. Last date of dose change: 09/11/21. Previous INR (date and result): 2.6 Additional Clinical Information or narrative: yes: Pt states no changes in diet denies increase in greens or alcohol use, no missed doses, not on any antibiotics, no increased bruising or bleeding issues. documented in this encounter [facility] 10-01-2021 Miscellaneous Notes Patient instructed of dosage with teach back method. Verbalizes understanding. Same. Recheck one week Last INR: INR (POCT) 2.6(EXT) 10/01/2021 Current dose of coumadin is: 7.5 mg /, and 5.0 mg every other day. Last date of dose change: 09/11/2021. Previous INR (date and result): 09/25/21 and 2.2 Additional Clinical Information or narrative: yes: no changes in diet denies increase in greens or alcohol use, no missed doses, no antibiotics, no increased bruising or bleeding issues. documented in this encounter [facility] 10-01-2021 Miscellaneous Notes Refaxed form with both [...] not know if he was waiting on [facility] to come in and he was going [...] call and advise. documented in this encounter [facility] 09-27-2021 Miscellaneous Notes Patient notified of results, verbalizes understanding of instructions. Travis Chambers LPN Thyroid is improving but still slightly low. Can we change synthroid to 150 mcg and recheck tsh in six weeks documented in this encounter [facility] 09-26-2021 Instructions Baudilio Sultana MD - 09/26/2021 [...] usual activities immediately. documented in this encounter [facility] 09-26-2021 History of Present illness Narrative Patient presents with: Physical: moving into assisted living HPI: Patient presents today for office visit for follow up. Needs forms completed for assisted living facility[facility] in [place]. She is both excited and nervous about the move. Will be transitioning to [place] medical care. She asked us to do the [place] through October until the new physician has [...] directed once a month. blood sugar diagnostic ([employer] VERIO TEST STRIPS) test strip Test blood [...] One A Day Womens Spirometers and Accessories giu Incentive spirometer. Deep breathe hourly while awake. [...] H* Mental Status Change Penicillins Hives Dioxicillin Jeywlgr-Rpw-Ily Red* Myalgia PAST MEDICAL HISTORY Diagnosis Date [...] forms completed. Will give script for her consuelo. - CONSULT TO PHYSICAL THERAPY - CONSULT TO COSMETICS PRESSER 2. Carotid artery disease, unspecified laterality, unspecified [...] physician and prn. documented in this encounter [facility] 09-25-2021 Miscellaneous Notes Patient notified and voiced understanding. Roxann Gomez MA Same recheck one week Patient called in with home INR. Last INR: INR (POCT) 2.2 (ext) 09/25/2021 Current dose of coumadin is: 7.5 mg on Thus and Thu, 5 mg all other days. Previous INR (date and result): 1.9 on 09/11/21 Additional Clinical Information or narrative: no documented in this encounter [facility] 09-18-2021 Miscellaneous Notes Patient notified and voiced [...] or bleeding issues. documented in this encounter [facility] 2021 Miscellaneous Notes TC to pt, notified [...] Recheck INR in one week. Najma Dobbs APRN.JOHN Last INR: INR (POCT) 1.9 (EXT) 2021 [...] or missed doses. documented in this encounter [facility] 01-29-2021 History of Present illness Narrative Radiology [...] 2021 1:01 PM documented in this encounter [facility] 01-04-2018 History of Past i llness Narrative [...] of this encounter (statuses as of 09/16/2021) [facility] History of Past illness Narrative* Problem Noted [...] of this encounter (statuses as of 09/18/2021) [facility] History of Past illness Narrative* Problem Noted [...] of this encounter (statuses as of 2021) [facility] History of Past illness Narrative* Problem Noted [...] of this encounter (statuses as of 09/25/2021) [facility] History of Past illness Narrative* Problem Noted [...] of this encounter (statuses as of 09/26/2021) [facility] History of Past illness Narrative* Problem Noted [...] of this encounter (statuses as of 09/27/2021) [facility] History of Past illness Narrative* Problem Noted [...] of this encounter (statuses as of 10/01/2021) [facility] History of Past illness Narrative* Problem Noted [...] of this encounter (statuses as of 10/01/2021) [facility] History of Past illness Narrative* Problem Noted [...] of this encounter (statuses as of 10/09/2021) [facility] History of Past illness Narrative* Problem Noted [...] of this encounter (statuses as of 10/15/2021) [facility] History of Past illness Narrative* Problem Noted [...] of this encounter (statuses as of 10/15/2021) [facility] of Past illness Narrative* Problem Noted [...] of this encounter (statuses as of 10/15/2021) [facility] of Past illness Narrative* Problem Noted [...] of this encounter (statuses as of 10/30/2021) [facility] of Past illness Narrative* Problem Noted [...] of this encounter (statuses as of 11/11/2021) [facility] of Past illness Narrative* Problem Noted [...] of this encounter (statuses as of 11/19/2021) [facility] of Past illness Narrative* Problem Noted [...] of this encounter (statuses as of 11/30/2021) [facility] of Past illness Narrative* Problem Noted [...] of this encounter (statuses as of 12/23/2021) [facility] of Past illness Narrative* Problem Noted [...] of this encounter (statuses as of 02/10/2022) [facility] of Past illness Narrative* Problem Noted [...] of this encounter (statuses as of 02/11/2022) [facility] of Past illness Narrative* Problem Noted [...] of this encounter (statuses as of 02/12/2022) [facility] of Past illness Narrative* Problem Noted [...] of this encounter (statuses as of 02/27/2022) [facility] of Past illness Narrative* Problem Noted [...] of this encounter (statuses as of 03/03/2022) [facility] History of Past illness Narrative* Problem Noted [...] of this encounter (statuses as of 03/06/2022) [facility] of Past illness Narrative* Problem Noted [...] of this encounter (statuses as of 04/25/2022) [facility] of Past illness Narrative* Problem Noted [...] of this encounter (statuses as of 06/25/2022) [facility] History of Past illness Narrative* Problem Noted [...] of this encounter (statuses as of 05/04/2023) [facility] of Past illness Narrative* Problem Noted [...] of this encounter (statuses as of 05/04/2023) [facility] Diagnosis History of pulmonary embolism Personal history of pulmonary embolism documented in this encounter [facility]* Diagnosis History of pulmonary embolism Personal history of pulmonary embolism [facility] Diagnosis Cerebral palsy, unspecified type (HCC)- [...] or radiculitis nos documented in this encounter [facility] noteNo assessment information availableWOhio[facility]: Evaluation note* Diagnosis Acquired hypothyroidism Unspecified hypothyroidism documented in this encounter [facility] note* Diagnosis Disorder of bone and cartilage Disorder of bone and cartilage, unspecified documented in this encounter [facility] note* Diagnosis Encounter for screening mammogram for breast cancer documented in this encounter [facility] note* Diagnosis Type 2 diabetes, controlled, with neuropathy (HCC)- Primary Type II or unspecified type diabetes mellitus with neurological manifestations, not stated as uncontrolled Diabetic ulcer of toe 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, with fat layer exposed (HCC) documented in this encounter [facility] note* Diagnosis Diabetic ulcer of toe 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, with fat layer exposed (HCC) documented in this encounter [facility] note* Diagnosis Diabetic ulcer of toe 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, with fat layer exposed (HCC)- Primary documented in this encounter [facility] note* Diagnosis Diabetic ulcer of toe 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, with fat layer exposed (HCC)- Primary Type 2 diabetes, controlled, with neuropathy (HCC) Type II or unspecified type diabetes mellitus with neurological manifestations, not stated as uncontrolled documented in this encounter [facility] note* Diagnosis Diabetic ulcer of other part 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, with fat layer exposed (HCC)- Primary Cellulitis of left lower extremity Cellulitis and abscess of leg, except foot PE (pulmonary thromboembolism) (HCC) Chronic pulmonary embolism Cellulitis Cellulitis and abscess of unspecified site documented in this encounter [facility] Work Phone: Evaluation note* Diagnosis Diabetic ulcer of toe 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, with fat layer exposed (HCC)- Primary documented in this encounter [facility] note* Diagnosis Fall, initial encounter- Primary Skin tear of hand without complication Cephalohematoma Other injuries to scalp Acute pain of right shoulder documented in this encounter [facility] note* Diagnosis Exacerbation of asthma, unspecified asthma severity, unspecified whether persistent Hyperparathyroidism, primary (HCC) Primary hyperparathyroidism Neuropathy Mononeuritis of unspecified site Osteoarthritis of AC (acromioclavicular) joints, bilateral Vitamin D deficiency Unspecified vitamin D deficiency Blister Other, multiple, and unspecified sites, blister, without mention of infection Candidiasis of breast Other candidiasis of other specified sites Lupus anticoagulant disorder (HCC) Primary hypercoagulable state Cerumen in auditory canal on examination Chronic kidney disease, unspecified CKD stage Fall, sequela Knee pain, unspecified chronicity, unspecified laterality Chronic thromboembolic pulmonary hypertension (HCC) Other chronic pulmonary heart diseases Strain of calf muscle, unspecified laterality, subsequent encounter Traumatic ecchymosis of lower back, sequela Yeast infection of the skin Candidiasis of skin and nails documented in this encounter [facility] note* Diagnosis Frequent falls- Primary Right hip pain Pain in joint, pelvic region and thigh Contusion of right knee, initial encounter Osteoarthritis, unspecified osteoarthritis type, unspecified site documented in this encounter [facility] note* Diagnosis Diabetic ulcer of left foot associated with diabetes mellitus due to underlying condition, unspecified part of foot, unspecified ulcer stage ([facility])- Primary Left leg cellulitis documented in this encounter [facility] note* Diagnosis Pressure ulcer of right foot, stage 3 ([facility])- Primary documented in this encounter [facility] note* Diagnosis Chronic right shoulder pain Pain in joint, shoulder region documented in this encounter [facility] note* Diagnosis Acute cough- Primary documented in this encounter [facility] note* Diagnosis Fall at home, initial encounter- Primary Cerebral palsy, unspecified type ([facility]) Brachial neuritis or radiculitis Brachial neuritis or radiculitis nos Acute pain of right shoulder Left knee pain, unspecified chronicity Diabetic polyneuropathy associated with type 2 diabetes mellitus (HCC) Neuropathy Mononeuritis of unspecified site Type 2 diabetes, controlled, with neuropathy (HCC) Type II or unspecified type diabetes mellitus with neurological manifestations, not stated as uncontrolled Atherosclerosis of [place] coronary artery of [place] heart without angina pectoris Other pulmonary embolism without acute cor pulmonale, unspecified chronicity ([facility]) Debility Debility, unspecified documented in this encounter [facility] note* Diagnosis Fall at home, initial encounter- [...] Neuropathy Mononeuritis of unspecified site Atherosclerosis of [place] coronary artery of [place] heart without angina pectoris Other pulmonary embolism without acute cor pulmonale, unspecified chronicity (HCC) Debility Debility, unspecified documented in this encounter [facility] note* Diagnosis Fall at home, initial encounter- [...] manifestations, not stated as uncontrolled Atherosclerosis of [place] coronary artery of [place] heart without angina pectoris Other pulmonary embolism without acute cor pulmonale, unspecified chronicity (HCC) Debility Debility, unspecified documented in this encounter [facility] note* Diagnosis Primary osteoarthritis of left knee- Primary Primary localized osteoarthrosis, lower leg documented in this encounter [facility] note* Diagnosis Sprain of left ankle, unspecified ligament, initial encounter- Primary Ankle instability, left Chronic pain of left ankle documented in this encounter [facility] note* Diagnosis Sprain of left ankle, unspecified ligament, initial encounter Ankle instability, left documented in this encounter [facility] for referral (narrative)* Diagnostic Procedure Only (Routine) - Pending Review Specialty Diagnoses / Procedures Referred By Enrique cueva Referred To Contact [facility] Diagnoses Encounter for screening mammogram for breast cancer Procedures [facility] SCREENING SCREENING MAMMOGRAPHY BI 2-VIEW BREAST INC CAD Baudilio Sultana MD [address] [place] [address] [facility] [address] [place] [address] Referral ID Status Reason Start Date Expiration Date Visits Requested Visits Authorized [id number] Pending Review Auto-Generat ed Referral 12/18/2021 01/17/2023 1 1 [facility] for referral (narrative)* Diagnostic Procedure Only (Routine) - Closed Specialty Diagnoses / Procedures Referred By Enrique cueva Referred To Contact XR IMAGING Diagnoses Diabetic ulcer of toe 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, with fat layer exposed (HCC) Procedures XR FOOT GENERAL 3V AP/LAT/OBL LEFT RADEX FOOT COMPLETE MINIMUM 3 VIEWS Steven Pelaez [address] [place] [address] Xr Imaging Referral ID Status Reason Start Date Expiration Date V isits Requested Visits Authorized [id number] Closed Auto-Generate d Referral 02/10/2022 03/12/2023 1 1 [facility] for referral (narrative)* Diagnostic Procedure Only (Routine) - Closed Specialty Diagnoses / Procedures Referred By Contac t Referred To Contact XR IMAGING Diagnoses Diabetic ulcer of toe 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, with fat layer exposed (HCC) Procedures XR FOOT GENERAL 3V AP/LAT/OBL LEFT RADEX FOOT COMPLETE MINIMUM 3 VIEWS Steven Pelaez [address] [place] [address] Xr Imaging Referral ID Status Reason Start Date Expiration Date V isits Requested Visits Authorized [id number] Closed Auto-Generate d Referral 02/10/2022 03/12/2023 1 1 [facility] for visit Narrative* Diagnostic Procedure Only (Routine) - Closed Specialty Diagnoses / Procedures Referred By Contsilvia t Referred To Contact Radiology / RADIO BONE DENSITY [facility] Diagnoses Disorder of bone and cartilage [M89.9, M94.9] Procedures BONE DENSITY ADULT 225 Baudilio Sultana MD [address] [place] [address] Radio Bone Density [facility] [address] [place] [address] Referral ID Status Reason Start Date Expiration Date Visits Re quested Visits Authorized [id number] Closed 10/14/2021 06/21/2022 1 1 [facility] for visit Narrative* Diagnostic Procedure Only (Routine) - Closed Specialty Diagnoses / Procedures Referred By Contac t Referred To Contact XR IMAGING Diagnoses Diabetic ulcer of toe 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, with fat layer exposed (HCC) Procedures XR FOOT GENERAL 3V AP/LAT/OBL LEFT RADEX FOOT COMPLETE MINIMUM 3 VIEWS Steven Pelaez [address] [place] [address] Xr Imaging Referral ID Status Reason Start Date Expiration Date V isits Requested Visits Authorized [id number] Closed Auto-Generate d Referral 02/10/2022 03/12/2023 1 1 [facility] for visit Narrative* Diagnostic Procedure Only (Routine) - Closed Specialty Diagnoses / Procedures Referred By Contac t Referred To Contact XR IMAGING Diagnoses Sprain of left ankle, unspecified ligament, initial encounter Ankle instability, left Procedures XR TIBIA FIBULA 2V AP/LAT LEFT RADIOLOGIC EXAMINATION TIBIA & FIBULA 2 VIEWS Steven Pelaez [address] [place] [address] Phone: tel: fax: [place] [address] Referral ID Status Reason Start Date Expiration Date V isits Requested Visits Authorized [id number] Closed Auto-Generate d Referral 10/27/2024 11/26/2025 [address] [facility] Summary Purpose Family History No Family History [...] FoundDocuments on File Type Date Recorded Patient Data Deliverables Manager Expl anation Advance Directive(s) 11/24/2016 2:36 PM Advance Directive(s) 10/24/2016 10:01 AM Advance Directive(s) 12/26/2013 2:29 PM Documents on File Type Date Recorded Patient Data Deliverables Manager Expl anation Advance Directive(s) 11/24/2016 2:36 PM Advance Directive(s) 10/24/2016 10:01 AM Advance Directive(s) 12/26/2013 2:29 PM Advance Directive Response Recorded Date/ Time Advance Directives Yes January 04 7:42pm Living Will Yes April 22 10:07pm Power of Bleach Supervisor Yes April 22, 2021 10:07pm Documents on File Type Date Recorded Patient Data Deliverables Manager Expl anation Advance Directive(s) 12/26/2013 2:29 PM Documents on File Type Date Recorded Patient Data Deliverables Manager Expl anation Advance Directive(s) 12/26/2013 2:29 PM Latest Code Status on File Code Status Date Activated Date Inactivated Comments Limited 03/08/2022 4:21 PM Intubation/Re-intubation at the time of arrest: No Defibrillation/Cardioversion: No Chest Compressions: No Resuscitative Medications: Yes Healthcare Agents on File Name Relationship Healthcare Agent Relationshi p Communication Lisha Holly Child Primary Decision Maker Documents on File Type Date Recorded Patient Data Deliverables Manager Expl anation DNR (Do Not Resuscitate) 12/18/2023 10:52 AM Reason for Referral Specialty Diagnoses / Procedures Referred By Contac t Referred To Contact [facility] Diagnoses Cerebral palsy, unspecified type (HCC) Procedures CONSULT TO COSMETICS PRESSER OCCUPATIONAL THERAPY EVAL HIGH COMPLEX 60 MINS Baudilio Sultana MD [address] [place] [phone] [address] Referral ID Status Reason Start Date Expiration Date Visits Requested Visits Authorized [id number] Pending Review Auto-Generat ed Referral 09/26/2021 09/26/2022 1 1 Specialty Diagnoses / Procedures Referred By Contac t [facility] Diagnoses Cerebral palsy, unspecified type (HCC) Procedures CONSULT TO PHYSICAL THERAPY PHYSICAL THERAPY EVALUATION HIGH COMPLEX 45 MINS Baudilio Sultana MD [address] [place] [phone] [address] Referral ID Status Reason Start Date Expiration Date Visits Requested Visits Authorized [id number] Pending Review Auto-Generat ed Referral 09/26/2021 09/26/2022 1 1 Specialty Diagnoses / Procedures Referred By Contac t Referred To [facility] Diagnoses Carotid artery disease, unspecified laterality, unspecified type (HCC) Procedures US CAROTID ARTERIES DUSTIN VAS LAB DUPLEX SCAN EXTRACRANIAL ART COMPL BI STUDY Baudilio Sultana MD [address] [place] [address] [facility] [place] [address] [place] [address] Referral ID Status Reason Start Date Expiration Date Visits Requested Visits Authorized [id number] Additional Clinical Info Needed Auto-Generat ed Referral 09/26/2021 09/26/2022 1 1 Specialty Diagnoses / Procedures Referred By Contac t Referred To Contact Wound Care / IP Unit Diagnoses Diabetic ulcer of other part 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, with fat layer exposed (HCC) Ritika Fonseca, TORCH OPERATOR - SMOKE EATER [address] [place] [address] [address] [facility] [address] [place] [address] Referral ID Status Reason Start Date Expiration Date V isits Requested Visits Authorized [id number] Open Specialty Services Required 03/11/2022 03/11/2023 1 1 Scheduling Instructions [facility] Wound Care/Hyperbaric [facility] [address] [place] [address] Comments Wound Center/Hyperbaric Medicine is located on the ground floor of [facility] (just behind registration). Bring photo ID [...] section and content) DATE CREATED AUTHOR 12/11/2017 [facility] DATE CREATED AUTHOR AUTHOR'S ORGANIZ ATION 12/11/[address] [facility] [place] [facility] DATE CREATED AUTHOR AUTHOR'S ORGANIZ ATION 03/31/2022 [facility] DATE CREATED AUTHOR AUTHOR'S ORGANIZ ATION 09/08/2022 [facility] DATE CREATED AUTHOR AUTHOR'S ORGANIZ ATION 07/11/2024 [facility] DATE CREATED AUTHOR AUTHOR'S ORGANIZ ATION 10/01/2024 [facility] DATE CREATED AUTHOR AUTHOR'S ORGANIZ ATION 11/09/2024 [facility] DATE CREATED AUTHOR AUTHOR'S ORGANIZ ATION 12/12/2024 [facility] DATE CREATED AUTHOR AUTHOR'S ORGANIZ ATION 01/08/2025 [facility] Comments (unrecognize d section and content) In the event this informatio n is protected by the Federal Confidentiality of Alcohol and Drug Abuse Patient Records regulations: The Federal rules restrict any use of the information to criminally investigate or prosecute any alcohol or drug abuse patient.[facility] the event this information is protected by the Federal Confidentiality of Alcohol and Drug Abuse Patient Records regulations: The Federal rules restrict any use of the information to criminally investigate or prosecute any alcohol or drug abuse patient.[facility] the event this information is protected by the Federal Confidentiality of Alcohol and Drug Abuse Patient Records regulations: The Federal rules restrict any use of the information to criminally investigate or prosecute any alcohol or drug abuse patient.[facility] the event this information is protected by the Federal Confidentiality of Alcohol and Drug Abuse Patient Records regulations: The Federal rules restrict any use of the information to criminally investigate or prosecute any alcohol or drug abuse patient.[facility] the event this information is protected by the Federal Confidentiality of Alcohol and Drug Abuse Patient Records regulations: The Federal rules restrict any use of the information to criminally investigate or prosecute any alcohol or drug abuse patient.[facility] the event this information is protected by the Federal Confidentiality of Alcohol and Drug Abuse Patient Records regulations: The Federal rules restrict any use of the information to criminally investigate or prosecute any alcohol or drug abuse patient.[facility] the event this information is protected by the Federal Confidentiality of Alcohol and Drug Abuse Patient Records regulations: The Federal rules restrict any use of the information to criminally investigate or prosecute any alcohol or drug abuse patient.[facility] the event this information is protected by the Federal Confidentiality of Alcohol and Drug Abuse Patient Records regulations: The Federal rules restrict any use of the information to criminally investigate or prosecute any alcohol or drug abuse patient.[facility] the event this information is protected by the Federal Confidentiality of Alcohol and Drug Abuse Patient Records regulations: The Federal rules restrict any use of the information to criminally investigate or prosecute any alcohol or drug abuse patient.[facility] the event this information is protected by the Federal Confidentiality of Alcohol and Drug Abuse Patient Records regulations: The Federal rules restrict any use of the information to criminally investigate or prosecute any alcohol or drug abuse patient.[facility] Center[facility] the event this information is protected by the Federal Confidentiality of Alcohol and Drug Abuse Patient Records regulations: The Federal rules restrict any use of the information to criminally investigate or prosecute any alcohol or drug abuse patient.[facility] the event this information is protected by the Federal Confidentiality of Alcohol and Drug Abuse Patient Records regulations: The Federal rules restrict any use of the information to criminally investigate or prosecute any alcohol or drug abuse patient.[facility] the event this information is protected by the Federal Confidentiality of Alcohol and Drug Abuse Patient Records regulations: The Federal rules restrict any use of the information to criminally investigate or prosecute any alcohol or drug abuse patient.[facility] Center[facility] the event this information is protected by the Federal Confidentiality of Alcohol and Drug Abuse Patient Records regulations: The Federal rules restrict any use of the information to criminally investigate or prosecute any alcohol or drug abuse patient.[facility] Center[facility] the event this information is protected by the Federal Confidentiality of Alcohol and Drug Abuse Patient Records regulations: The Federal rules restrict any use of the information to criminally investigate or prosecute any alcohol or drug abuse patient.[facility] the event this information is protected by the Federal Confidentiality of Alcohol and Drug Abuse Patient Records regulations: The Federal rules restrict any use of the information to criminally investigate or prosecute any alcohol or drug abuse patient.[facility] Center[facility] the event this information is protected by the Federal Confidentiality of Alcohol and Drug Abuse Patient Records regulations: The Federal rules restrict any use of the information to criminally investigate or prosecute any alcohol or drug abuse patient.[facility] CenterIn the event this information is protected by the Federal Confidentiality of Alcohol and Drug Abuse Patient Records regulations: The Federal rules restrict any use of the information to criminally investigate or prosecute any alcohol or drug abuse patient.[facility] CenterIn the event this information is protected by the Federal Confidentiality of Alcohol and Drug Abuse Patient Records regulations: The Federal rules restrict any use of the information to criminally investigate or prosecute any alcohol or drug abuse patient.[facility] CenterIn the event this information is protected by the Federal Confidentiality of Alcohol and Drug Abuse Patient Records regulations: The Federal rules restrict any use of the information to criminally investigate or prosecute any alcohol or drug abuse patient.[facility] CenterIn the event this information is protected by the Federal Confidentiality of Alcohol and Drug Abuse Patient Records regulations: The Federal rules restrict any use of the information to criminally investigate or prosecute any alcohol or drug abuse patient.[facility] CenterIn the event this information is protected by the Federal Confidentiality of Alcohol and Drug Abuse Patient Records regulations: The Federal rules restrict any use of the information to criminally investigate or prosecute any alcohol or drug abuse patient.[facility] CenterIn the event this information is protected by the Federal Confidentiality of Alcohol and Drug Abuse Patient Records regulations: The Federal rules restrict any use of the information to criminally investigate or prosecute any alcohol or drug abuse patient.[facility] CenterIn the event this information is protected by the Federal Confidentiality of Alcohol and Drug Abuse Patient Records regulations: The Federal rules restrict any use of the information to criminally investigate or prosecute any alcohol or drug abuse patient.[facility] CenterIn the event this information is protected by the Federal Confidentiality of Alcohol and Drug Abuse Patient Records regulations: The Federal rules restrict any use of the information to criminally investigate or prosecute any alcohol or drug abuse patient.[facility] CenterIn the event this information is protected by the Federal Confidentiality of Alcohol and Drug Abuse Patient Records regulations: The Federal rules restrict any use of the information to criminally investigate or prosecute any alcohol or drug abuse patient.[facility] CenterIn the event this information is protected by the Federal Confidentiality of Alcohol and Drug Abuse Patient Records regulations: The Federal rules restrict any use of the information to criminally investigate or prosecute any alcohol or drug abuse patient.[facility] CenterIn the event this information is protected by the Federal Confidentiality of Alcohol and Drug Abuse Patient Records regulations: The Federal rules restrict any use of the information to criminally investigate or prosecute any alcohol or drug abuse patient.[facility] CenterIn the event this information is protected by the Federal Confidentiality of Alcohol and Drug Abuse Patient Records regulations: The Federal rules restrict any use of the information to criminally investigate or prosecute any alcohol or drug abuse patient.[facility] CenterIn the event this information is protected by the Federal Confidentiality of Alcohol and Drug Abuse Patient Records regulations: The Federal rules restrict any use of the information to criminally investigate or prosecute any alcohol or drug abuse patient.[facility] CenterIn the event this information is protected by the Federal Confidentiality of Alcohol and Drug Abuse Patient Records regulations: The Federal rules restrict any use of the information to criminally investigate or prosecute any alcohol or drug abuse patient.[facility] CenterIn the event this information is protected by the Federal Confidentiality of Alcohol and Drug Abuse Patient Records regulations: The Federal rules restrict any use of the information to criminally investigate or prosecute any alcohol or drug abuse patient.[facility] CenterIn the event this information is protected by the Federal Confidentiality of Alcohol and Drug Abuse Patient Records regulations: The Federal rules restrict any use of the information to criminally investigate or prosecute any alcohol or drug abuse patient.[facility] CenterIn the event this information is protected by the Federal Confidentiality of Alcohol and Drug Abuse Patient Records regulations: The Federal rules restrict any use of the information to criminally investigate or prosecute any alcohol or drug abuse patient.[facility] CenterIn the event this information is protected by the Federal Confidentiality of Alcohol and Drug Abuse Patient Records regulations: The Federal rules restrict any use of the information to criminally investigate or prosecute any alcohol or drug abuse patient.[facility] CenterIn the event this information is protected by the Federal Confidentiality of Alcohol and Drug Abuse Patient Records regulations: The Federal rules restrict any use of the information to criminally investigate or prosecute any alcohol or drug abuse patient.[facility] Care Teams (unrecognized sec tion and content) Paint Stockman Relationship Specialty Start Date End Date Baudilio Sultana MD [address] [place], [place] [id number] PCP - General Family Practice 04/01/18 Jackson Lee Consulting Rheumatology 10/12/17 Paint Stockman Relationship Specialty Start Date End Date Baudilio Sultana MD [address] [place], [place] [id number] PCP - General Family Practice 04/01/18 Jackson Lee Consulting Rheumatology 10/12/17 Paint Stockman Relationship Specialty Start Date End Date Baudilio Sultana MD [address] [place], [place] [id number] PCP - General Family Practice 04/01/18 Jackson Lee Consulting Rheumatology 10/12/17 Paint Stockman Relationship Specialty Start Date End Date Baudilio Sultana MD [address] [facility] [place] [address] PCP - General Family Practice 04/01/18 Jackson Lee Consulting Rheumatology 10/12/17 Paint Stockman Relationship Specialty Start Date End Date Baudilio Sultana MD [address] [facility] [place] [address] PCP - General Family Practice 04/01/18 Jackson Lee Consulting Rheumatology 10/12/17 Paint Stockman Relationship Specialty Start Date End Date Baudilio Sultana MD [address] [facility] [place] [address] PCP - General Family Practice 04/01/18 Jackson Lee Consulting Rheumatology 10/12/17 Paint Stockman Relationship Specialty Start Date End Date Baudilio Sultana MD [address] [facility] [place] [address] PCP - General Family Practice 04/01/18 Jackson Lee Consulting Rheumatology 10/12/17 Paint Stockman Relationship Specialty Start Date End Date Baudilio Sultana MD [address] [facility] [place] [address] PCP - General Family Practice 04/01/18 Jackson Lee Consulting Rheumatology 10/12/17 Paint Stockman Relationship Specialty Start Date End Date Baudilio Sultana MD [address] [facility] [place] [address] PCP - General Family Practice 04/01/18 Jackson Lee Consulting Rheumatology 10/12/17 Paint Stockman Relationship Specialty Start Date End Date Baudilio Sultana MD [address] [facility] [place] [address] PCP - General Family Practice 04/01/18 Jackson Leeo Consulting Rheumatology 10/12/17 Paint Stockman Relationship Specialty Start Date End Date Baudilio Sultana MD [address] [facility] [place] [address] PCP - General Family Practice 04/01/18 Jackson Lee Consulting Rheumatology 10/12/17 Paint Stockman Relationship Specialty Start Date End Date Baudilio Sultana MD [address] [facility] [place] [address] PCP - General Family Practice 04/01/18 Jackson Lee Consulting Rheumatology 10/12/17 Paint Stockman Relationship Specialty Start Date End Date Baudilio Sultana MD [address] [facility] [place] [address] PCP - General Family Practice 04/01/18 Jackson Leeo Consulting Rheumatology 10/12/17 Paint Stockman Relationship Specialty Start Date End Date Baudilio Sultana MD [address] [facility] [place] [address] PCP - General Family Practice 04/01/18 Jackson Leeardo Consulting Rheumatology 10/12/17 Paint Stockman Relationship Specialty Start Date End Date Baudilio Sultana MD [address] [facility] [place] [address] PCP - General Family Practice 04/01/18 Jackson Leeardo Consulting Rheumatology 10/12/17 Paint Stockman Relationship Specialty Start Date End Date Baudilio Sultana MD [address] [facility] [place] [address] PCP - General Family Practice 04/01/18 Jackson Leeo Consulting Rheumatology 10/12/17 Paint Stockman Relationship Specialty Start Date End Date Baudilio Sultana MD [address] [facility] [place] [address] PCP - General Family Medicine 04/01/18 04/24/22 Jackson Lee Consulting Rheumatology 10/12/17 Paint Stockman Relationship Specialty Start Date End Date Baudilio Sultana MD [address] [place], [place] [address] PCP - General Family Medicine 04/01/18 04/24/22 Jackson Lee Consulting Rheumatology 10/12/17 Paint Stockman Relationship Specialty Start Date End Date Jackson Lee MD Consulting Rheumatology 10/12/17 Paint Stockman Relationship Specialty Start Date End Date Jackson Lee MD Consulting Rheumatology 10/12/17 Paint Stockman Relationship Specialty Start Date End Date Gio Harvey [address], [place] [address] PCP - General Certified Nurse Practitioner 01/13/24 Paint Stockman Relationship Specialty Start Date End Date Gio Harvey [address], [facility] [place] [address] PCP - General Certified Nurse Practitioner 01/13/24 Paint Stockman Relationship Specialty Start Date End Date Baudilio Sultana MD [address] [place], [place] [id number] PCP - General Family Medicine 04/01/18 04/24/22 Jackson Lee MD Consulting Rheumatology 10/12/17 Paint Stockman Relationship Specialty Start Date End Date Gio Harvey [address], [place] [address] PCP - General Certified Nurse Practitioner 01/13/24 07/09/24 Paint Stockman Relationship Specialty Start Date End Date Gio Harvey [address], [place] [address] PCP - General Certified Nurse Practitioner 01/13/24 07/09/24 Paint Stockman Relationship Specialty Start Date End Date Raf Casey MD [address] [place] [address] [phone] PCP - General Internal Medicine 08/27/23 Jackson Lee MD Consulting Rheumatology 10/12/17 Paint Stockman Relationship Specialty Start Date End Date aRf Casey MD [address] [place] [address] [phone] PCP - General Internal Medicine 08/27/23 Jackson Lee MD Consulting Rheumatology 10/12/17 Paint Stockman Relationship Specialty Start Date End Date Raf Casey MD [address] [place] [address] [phone] PCP - General Internal Medicine 08/27/23 Jackson Lee MD Consulting Rheumatology 10/12/17 Paint Stockman Relationship Specialty Start Date End Date Raf Casey MD [address] [place] [address] [phone] PCP - General Internal Medicine 08/27/23 Jackson Lee MD Consulting Rheumatology 10/12/17 Paint Stockman Relationship Specialty Start Date End Date Raf Casey MD [address] [facility] [address] [place] [phone] PCP - General Internal Medicine 08/27/23 Jackson Lee MD Consulting Rheumatology 10/12/17 Paint Stockman Relationship Specialty Start Date End Date Raf Casey MD [address] [facility] [address] [place] [phone] PCP - General Internal Medicine 08/27/23 Jackson Lee MD Consulting Rheumatology 10/12/17 Paint Stockman Relationship Specialty Start Date End Date Raf Casey MD [address] [phone] PCP - General Internal Medicine 08/27/23 Jackson [...] 4C EST WELL Self Baudilio Sultana MD [address] [place] [address] Referral ID Status Reason Start Date Expiration Date V isits Requested Visits Authorized [id number] Closed Financial Clearance Required - OON Payor [...] Orders Reason Comments [facility], +thinners, A&Ox4 Reason Comments [...] LPN) 0851 (Given - Provider: Viktoriya Danielson RN)2150 (Given - Provider: Alexandra Yao RN) aspirin [...] Danielson RN) 0851 (Given - Provider: Viktoriya Danielson, NAWAF) calcium-cholecalciferol 500-200 MG-UNIT per tablet 1 tablet 1 tablet, Oral, DAILY, First dose on 03/08/22 at 1647, Until Discontinued 0749 (Given - Provider: Mable Trejo RN) 0747 (Given - Provider: Viktoriya Danielson, NAWAF) 0851 (Given - Provider: Viktoriya Danielson RN) [...] on 03/10/22 at 2100, Last dose on Thu03/15/22 at 0900, Antimicrobial Indications: Skin and Soft [...] dose on 03/08/22 at 1800, Until Discontinued 0748 (Given - Provider: Mable Trejo RN) 0748 (Given - Provider: Viktoriya Danielson RN) 0851 (Given - Provider: Viktoriya Danielson RN) hydroxychloroquine (PLAQUENIL) tablet 200 mg 200 mg, Oral, 2 TIMES DAILY, First dose on Thu03/09/22 at 1400, Until Discontinued, Do not crush [...] LPN - Reason: Order parameters not met) 203 (Not Given - Provider: Lucy Nicholas LPN [...] for 30 minutes before and after dose. 0611 (Given - Provider: Alexandra Yao RN) 518 (Given - Provider: Lucy Nicholas LPN) 528 (Given - Provider: Lucy Nicholas LPN) magnesium oxide (MAG-OX) tablet 400 mg 400 mg, Oral, DAILY BEFORE BREAKFAST, First dose on 03/09/22 at 0700, Until Discontinued 06 (Given - Provider: Alexandra Yao RN) 518 (Given - Provider: Lucy Nicholas LPN) 0529 (Given - Provider: Lucy Nicholas LPN) melatonin [...] skin folds. Substituted for Nystatin (MICOSTATIN) powder. 747 (Given - Provider: Mable Trejo RN - [...] dose on 03/08/22 at 1800, Until Discontinued 49 (Given - Provider: Mable Trejo RN) 0747 [...] mg, Oral, ONCE Warfarin, 1 dose, On Thu03/12/22 at 1800, Indication of Use: History of [...] Scheduled Medication Order 07/18/2023 07/19/2023 07/20/2023 HYDROcodone-acetaminophen ([place]) 5-325 MG per tablet 1 tablet (COMPLETED) 1 tablet, Oral, Once, On 07/19/23 at 2030, For 1 dose, Maximum dose of acetaminophen is 4000 mg from all sources in 24 hours. 2030 (Given - Provider: Pia Caraballo RN) HYDROcodone-acetaminophen ([place]) 5-325 MG per tablet 1 tablet (COMPLETED) 1 tablet, Oral, Once, On Thu07/20/23 at 0105, For 1 dose, Maximum dose of acetaminophen is 4000 mg from all sources in 24 hours. 0154 (Given - Provid er: Gifty Cornell RN) HYDROcodone-acetaminophen ([place]) 5-325 MG per tablet 1 tablet (COMPLETED) [...] mg from all sources in 24 hours. 184 (Given - Provider: Osvaldo Murdock RN) vancomycin [...] mg (COMPLETED) 8 mg, Oral, Once, On 1/19/25 at 0020, For 1 dose 0024 (Given - Provid er: Chhaya Osborn RN) glucagon (human recombinant) injection 1 mg (COMPLETED) 1 mg, IntraMUSCular, Once, On 07/09/24 at 2325, For 1 dose 2340 (Given - Provider: Chhaya Osborn, RN) FOR RECORDS PERTAINING TO PATIENTS WHO [...] BE BASED ON THE PRIMARY CLINICAL RECORDS. [facility]. provides no warranty or guarantee of the accuracy or completeness of information in this document.
[2025-01-09 08:38] LABS: INR Fingerstick 2.9
== END ==
LOC: OLS.WCC 04:00
PROVIDERS: PCP Family Medicine; Referring Provider Family Medicine; Visit Provider Family Medicine
DX: D68.62 Lupus anticoagulant syndrome (principal); G80.8 Other cerebral palsy
CPT/HCPCS: 36416; 85610

== ENCOUNTER → 2025-01-24 | Outpatient (REF) | payer MEDICARE, MEDICAID, SELFPAY ==
[2025-01-24 08:17] LABS: INR Fingerstick 3.8
== END ==
LOC: OLS.WCC 05:00
PROVIDERS: PCP Family Medicine; Visit Provider Family Medicine
DX: Z79.899 Other long term (current) drug therapy (principal)
CPT/HCPCS: 36416; 85610

== ENCOUNTER → 2025-01-31 | Outpatient (REF) | payer MEDICARE, MEDICAID, SELFPAY ==
[2025-01-31 09:02] LABS: Prothrombin Time (Protime)PT. 40.0 SECONDS (11.7-14.9)
== END ==
LOC: OLS.WCC 07:25
PROVIDERS: PCP Family Medicine; Visit Provider Family Medicine
DX: N18.9 Chronic kidney disease, unspecified (principal); Z79.01 Long term (current) use of anticoagulants
CPT/HCPCS: 36415; 85610

== ENCOUNTER → 2025-02-01 | Outpatient (REF) | payer MEDICARE, MEDICAID, SELFPAY ==
[2025-02-01 06:57] LABS: INR Fingerstick 3.2
== END ==
LOC: OLS.WCC 05:00
PROVIDERS: PCP Family Medicine; Visit Provider Family Medicine
DX: N18.9 Chronic kidney disease, unspecified (principal); Z79.01 Long term (current) use of anticoagulants
CPT/HCPCS: 36416; 85610

== ENCOUNTER → 2025-02-07 | Outpatient (REF) | payer MEDICARE, MEDICAID, SELFPAY ==
[2025-02-07 08:39] LABS: INR Fingerstick 2.5
== END ==
LOC: OLS.WCC 05:00
PROVIDERS: PCP Family Medicine; Visit Provider Family Medicine
DX: Z79.899 Other long term (current) drug therapy (principal); Z79.01 Long term (current) use of anticoagulants
CPT/HCPCS: 36416; 85610

== ENCOUNTER → 2025-02-21 | Outpatient (REF) | payer MEDICARE, MEDICAID, SELFPAY ==
[2025-02-21 08:57] LABS: INR Fingerstick 2.4
== END ==
LOC: OLS.WCC 04:00
PROVIDERS: PCP Family Medicine; Referring Provider Family Medicine; Visit Provider Family Medicine
DX: I25.10 Atherosclerotic heart disease of native coronary artery without angina pectoris (principal)
CPT/HCPCS: 36416; 85610

== ENCOUNTER → 2025-03-02 | Outpatient (REF) | payer MEDICARE, MEDICAID, SELFPAY ==
--- OUTSIDE RECORDS SUMMARY | 2025-03-02 04:39 | XMS RPT_ITS | CCD ---
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 Name Role Phone DAVID ERWIN E Unavailable [...] HUTSON Referring Unavailable Jackson Lee MD Unavailable Unavailable Primary Care Provider UnavailGio Ureña Primary Care Provider Baudilio Sultana MD Primary Care Provider Gio Harvey Primary Care Provider GIO HARVEY Primary Care Unavailable ISAAC CHICAS Attending Unavailable GLORIA BANGURA Attending Unavailable GIO HRAVEY Primary Care Unavailable Александр JHA Attending Unavailable [...] Unavailable Raf Casey MD Primary Care Provider [phone] [place]MBERLY, [employer] Primary Care Unavailable LI, [employer] [facility] Primary Care Unavailable SAGE LOERA Attending Unavailabl e MABLE BARKER Admitting Unavailable TESTRASTEVEN XAVIER Referring Unavailable LI, [employer] Primary Care Unavailable TESTSTEVEN MOSLEY Referring Unavailable KYMBERLY, [employer] Primary Care Unavailable LULA GENE A Attending Unavailable [place]MBERLY, [employer] Primary Care Unavailable LULA GENE A Attending Unavailable [place]MBERLY, [employer] Primary Care Unavailable LULA, GENE A Attending Unavailable [place]MBERLY, [employer] Primary Care Unavailable LULA, GENE A Attending Unavailable LULA, GENE A Referring Unavailable KYMBERLY, [employer] Primary Care Unavailable LULA GENE A Attending Unavailable KYMBERLY, [employer] Primary Care Unavailable LULA, GENE A Attending Unavailable KYMBERLY, [employer] Primary Care Unavailable LULA, GENE A Attending Unavailable KYMBERLY, [employer] Primary Care Unavailable LULA, GENE A Attending Unavailable KYMBERLY, [employer] Primary Care Unavailable LULA, GENE A Attending Unavailable [place]MBERLY, [employer] Primary Care Unavailable LULA, GENE A Attending Unavailable [place]MBERLY, [employer] Primary Care Unavailable MENDEL SHARMA Attending Unavailable SAGE LOERA Referring Unavailabl e KYMBERLY, [employer] Primary Care Unavailable STEVEN PELAEZ Attending Unavailable [place]MBER[facility], [employer] Primary Care Unavailable [place], [facility] Primary Care Unavailable Marroquin TRENA, Min K Attending Unavailable Marroquin OLS, Min K Referring Unavailable Marroquin OLS, Min K Attending Unavailable [place], [facility] Primary Care Unavailable Marroquin OLS, Min K Referring Unavailable Marroquin OLS, Min K Attending Unavailable [place], [facility] Primary Care Unavailable Marroquin OLS, Min K Attending Unavailable [place], [facility] Primary Care Unavailable Marroquin OLS, Min K Attending Unavailable [place], [facility] Primary Care Unavailable Marroquin OLS, Min K Attending Unavailable [place], [facility] Primary Care Unavailable Marroquin OLS, Min K Attending Unavailable [place], [facility] Primary Care Unavailable Marroquin OLS, Min K Referring Unavailable Rd, [facility] Primary Care Unavailable Marroquin OLS, Min K Attending Unavailable Marroquin OLS, Min K Attending Unavailable [place], [facility] Primary Care Unavailable [place], [facility] Primary Care Unavailable [place]ro[place] OLS, Min K Attending Unavailable [place] OLS, Min K Referring Unavailable Baudilio Sultana Primary Care Unavailable Min Rojas Attending Unavailable Allergies Allergy Classification Reported Allergen(s) Allergy Type Date of Onset Reaction(s) Facility (20 sources) cephalexin; Translations: [CEPHALEXIN] Drug Allergy 5 Itching [facility] Repository (20 sources) ciprofloxacin; Translations: [CIPROFLOXACIN] Drug Allergy 1 Rash [facility] (20 sources) erythromycin; Translations: [ERYTHROMYCIN] Drug Allergy 5 Itching [facility] (20 sources) naproxen; Translations: [NAPROXEN] Drug Allergy 5 Intolerance [facility] Repository (20 sources) PARoxetine; Translations: [PAROXETINE HCL] Drug Allergy 5 Mental Status Change [facility] Repository (20 sources) Penicillins; Translations: [PENICILLINS] Propensity to adverse reactions to drug (disorder) 1 Hives, Unknown, Other [facility] Repository (20 sources) PROMETHAZINE-PHE NYLEPHRINE; Translations: [PROMETHAZINE-PH ENYLEPHRINE] Propensity to adverse reactions to drug (disorder) 5 Mental Status Change, Other [facility] Repository (4 sources) OTHER; Translations: [OTHER] Propensity to adverse reactions (disorder) 2 AOF [facility] Repository (20 sources) HMG-CoA reductase inhibitor; Translations: [EADWHJZ-SSY-IYO REDUCTASE INHIBITORS] Drug Intolerance [address] [facility] Work Phone: (20 sources) paper tape [Other] Propensity to adverse reactions [address] [facility] Work Phone: (2 sources) Cephalexin; Translations: [cephalexin monohydrate] Drug Allergy 1 Unknown [facility] Repository (1 source) Erythromycin Drug Allergy 1 Unknown [facility] Work Phone: (2 sources) Promethazine; Translations: [promethazine HCl] Drug Allergy 1 Unknown [facility] Repository (2 sources) Jmubzta-Jvg-Avs Reductase Inhibitor; Translations: [Vogdnke-Cfq-Yej Reductase Inhibitor] Propensity to adverse reactions 1 Myalgias [facility] Repository (1 source) PAPER TAPE Propensity to adverse reactions 1 Rash [facility] Work Phone: (20 sources) HMG-CoA reductase inhibitor Drug Intolerance [address] [facility] Work Phone: (3 sources) Adhesive Tape Propensity to adverse reactions to drug 2 Unknown [facility] (5 sources) Cheese; Translations: [CHEESE] Propensity to adverse reactions to drug 2 Diarrhea, Nausea And Vomiting, GI Upset [facility] (1 source) Hmg-Coa Reductase Inhibitors (Statins) Propensity to adverse reactions to drug 2 [facility] Work Phone: (20 sources) Promethazine; Translations: [PROMETHAZINE] Drug Allergy 9 Unknown, Intolerance [facility] Work Phone: (20 sources) PARoxetine; Translations: [PAROXETINE] Drug Allergy 9 Unknown, Intolerance [facility] (20 sources) 5-Alpha Reductase Inhibitors Propensity to adverse reactions 3 [facility] (13 sources) Adhesive Tape-Silicones; Translations: [ADHESIVE TAPE-SILICONES] Drug Allergy 3 Unknown, Rash [facility] (11 sources) Adhesive Tape Propensity to adverse reactions 4 [facility] (7 sources) Wound Dressing Adhesive Drug Allergy 3 Unknown [facility] (11 sources) Adhesive Tape; Translations: [ADHESIVE TAPE (ROSINS)] Propensity to adverse reactions to substance 1 [facility] Work Phone: (2 sources) Adhesive agent; Translations: [ADHESIVE] Propensity to adverse reactions to drug (disorder) 2 [facility] Other [place] Repository (1 source) Adhesive Tape Drug allergy (disorder) 2 [facility] Repository (1 source) Erythromycin Drug Allergy 2 [facility] Repository Medications Current Medications Medication Drug Class(es) Dates Sig (Normalized) Sig (Original) acetaminophen 500 mg oral tablet (17 sources) Start: 09-28-2024 take 2 tablets by mouth every six hours as needed acetaminophen (TYLENOL) 500 mg tablet Take 2 tablets by mouth every 6 hours as needed for pain or fever (specify temp.). 09/28/2024 Active Start: 12-15-2023 End: 12-15-2023 650 mg, Oral, Once, On Tue at 1830, For 1 dose, Maximum dose [...] 24 hours. take 2 tablets by mo uth twice daily as needed for pain acetaminophen (TYLENOL) 500 MG tablet Take 1,000 mg by mouth 2 times daily as needed for Pain 0 Active albuterol 0.83 mg/ml inhalation solution (10 sources) beta2-Adrenergic Agonist take 3 mL by [...] once daily. benzonatate 100 mg oral capsule (11 sources) Non-narcotic Antitussive Start: 09-28-2024 take 1 [...] Phosphate Binder, Calcium Start: 06-12-2019 Calcium Carb-D3-Mag [id number] Active 1 EACH PO DAILY June 12, [...] anna ly cholecalciferol (Vitamin D-3) 50 MCG (2000 UT) capsule Take 2,000 Units by mouth [...] FOR ANXIETY FLUoxetine 20 mg oral capsule (8 sources) Serotonin Reuptake Inhibitor Start: 09-29-2024 take [...] Active Start: 03-09-2022 take 1 tablet by [facility] twice daily 200 mg, Oral, 2 TIMES [...] 09/28/2024 Active take 1 capsule by mo [facility] every eight hours as needed hydrOXYzine pamoate [...] daily. miconazole nitrate 0.02 mg/mg topical powder (9 sources) Azole Antifungal Start: 09-28-2024 miconazole 2 [...] 3 times daily. Active nystatin (Mycost atin) 478758 UNIT/GM powder Apply topically 2 times daily. Active nystatin (MYCOSTATIN) POWD p owder (1 source) nystatin (MYCOST ATIN) POWD powder Apply topically 2 times daily as needed 0 Active Nystatin, Bulk, 10 billion u nit powd (10 sources) Nystatin, Bulk, 10 billion unit powd [...] January 07, 2014 9:25am polyethylene glycol 3350 26789 mg powder for oral solution (2 sources) [...] 07/24/2021 Active take 1 capsule by mo uth every twenty-four hours ramipril (Altace) 5 MG capsule Take 1 capsule by mouth Every 24 hours. Active Comment on above: Take 1 capsule by mo [facility] once daily. 5 ml sodium chloride 9 mg/ml injection (7 sources) Start: 03-08-2022 0.9 % sodium chloride infusion Start: 03-08-2022 sodium chlorid e flush 0.9 % injection 5-40 mL Start: 03-08-2022 End: 03-08-2022 0.9 % sodium chloride IV [facility] 2,898 mL [employer] gui [...] Active Start: 09-17-2022 [facility] in [facility] evening traZODone [...] mcg into the muscle every 30 days 0 Active Comment on above: Inject 1 mL [...] Discontinued Start: 05-26-2019 take 2 tablets by [facility] once daily Warfarin (Coumadin) 2.5 mg tablet Active 5 MG PO DAILY May 26, 2019 2:11pm Start: 06-06-2014 End: 05-26-2019 Warfarin Discontinued 2.5 MG PO ERNESTOEFRSA June 06, 2014 1:41pm May 26, 2019 [...] Agonist Start: 07-19-2023 End: 07-20-2023 HYDROcodone-acetam inophen ([place]) 5-325 MG per tablet 1 tablet Start: [...] on above: Take 1 tablet by rajan twice daily. 300 mg once daily. calcium [...] Discontinued Start: 05-04-2019 take 2 spray(s) by [facility] once daily fluticasone (FLONASE) 50 mcg/actuation nasal [...] tablet (1 source) Start: 06-06-20 End: 08-21-19 21 take 150 mg by mouth three times [...] Onset: 3 04-18-2005 Chronic Chronic kidney disease (12 sources) Chronic kidney disease; Translations: [Chronic kidney disease, unspecified] Onset: 3 05-04-2023 Chronic Chronic ulcer of skin (13 sources) Non-pressure chronic ulcer of left heel and midfoot with fat layer exposed; Translations: [Pressure ulcer of other site, stage 3] Onset: 2 Chronic Coagulation and hemorrhagic disorders (14 sources) Thrombocytopenia, unspecified; Translations: [Lupus anticoagulant disorder] Onset: 2 Chronic Coronary atherosclerosis and other heart disease (20 sources) Atherosclerotic heart disease of [place] coronary artery without angina pectoris; Translations: [Coronary [...] initial encounter] Onset: 5 Episodic Essential hypertension (15 sources) Essential (primary) hypertension; Translations: [Essential hypertension] [...] Translations: [Depression, unspecified] Onset: 2 Nutritional deficiencies (11 sources) Vitamin D deficiency; Translations: [Vitamin D deficiency, unspecified] Onset: 3 05-04-2023 Chronic Osteoarthritis (20 sources) Osteoarthritis of bilateral acromioclavicular joints; Translations: [Primary osteoarthritis, right shoulder] Onset: 4 Resolved: 4 05-04-2023 Chronic Other aftercare (3 sources) detention (current) use of anticoagulants; Translations: [detention (current) use of anticoagulants] Onset: 2 Episodic Other aftercare (2 sources) detention (current) use of oral hypoglycemic drugs; Translations: [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 (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) use of oral hypoglycemic drugs] Onset: 2 Episodic Other aftercare (2 sources) detention (current) use of aspirin; Translations: [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 (current) use of aspirin] Onset: 2 Episodic Other aftercare (2 sources) detention (current) use of opiate analgesic; Translations: [detention (current) use of opiate analgesic] Onset: 2 Episodic Other aftercare (1 source) Other skilled nursing (current) drug therapy; Translations: [Other skilled nursing (current) drug therapy] Onset: 5 Episodic Other [...] unspecified] Onset: 2 Chronic Other endocrine disorders (11 sources) Primary hyperparathyroidism; Translations: [Primary hyperparathyroidism] Onset: [...] cough] 07-10-2024 Episodic Other nervous system disorders (14 sources) Neuropathy; Translations: [Polyneuropathy, unspecified] Onset: 3 [...] [Other instability, left ankle] 10-27-2024 Episodic Other nutritional; endocrine; and metabolic disorders [...] Chronic Other nutritional; endocrine; and metabolic disorders (8 sources) Obese class II; Translations: [Obesity, Class II, BMI 35-39.9] Onset: 5 09-21-2024 Chronic Other nutritional; endocrine; and metabolic disorders (8 sources) Hypomagnesemia; Translations: [Hypomagnesemia] Onset: 5 09-25-2024 [...] 7 04-04-2015 Chronic Peripheral and visceral atherosclerosis (11 sources) Peripheral vascular disease; Translations: [Peripheral vascular disease, unspecified] Onset: 3 05-04-2023 Chronic Pulmonary heart disease (11 sources) Chronic thromboembolic pulmonary hypertension; Translations: [Chronic [...] 5 Unclassified (1 source) New Onset: 5 Urinary tract infections (13 sources) Urinary tract infection, site not specified; Translations: [Urinary tract infectious disease] Onset: 2 Episodic Past or Other Problems Problem Classification Problem Date Documented Date Episodic/Chronic trauma (20 sources) cephalhematoma; Translations: [Cephalhematoma due to injury] Onset: 09-06-2022 Episodic Coronary atherosclerosis and other heart disease (14 sources) Stented coronary artery; Translations: [Presence of coronary angioplasty implant and graft] Onset: 04-22-2008 Episodic Diabetes mellitus without complication (9 sources) Diabetes mellitus; Translations: [Type 2 diabetes mellitus without complications] Onset: 05-12-2011 Resolved: 11-08-2014 11-08-2014 Chronic E Codes: Fall (20 sources) Fall on same level, unspecified, initial encounter; Translations: [Fall] Onset: 03-08-2022 Resolved: 09-25-2024 Episodic Headache; including migraine (13 sources) Headache; Translations: [Headache] Onset: 03-29-2007 Resolved: 09-26-2021 03-29-2007 Episodic Immunizations and screening for infectious disease (13 sources) Anti-nuclear factor positive; Translations: [Other and unspecified nonspecific immunological findings] Onset: 02-28-2010 Resolved: 09-26-2021 02-28-2010 Episodic Infective arthritis and osteomyelitis (except that caused by tuberculosis or sexually transmitted disease) (9 sources) Osteomyelitis; Translations: [Osteomyelitis, unspecified] Onset: 01-10-2011 Resolved: 09-29-2016 09-29-2016 Chronic Miscellaneous mental health disorders (9 sources) Psychalgia; Translations: [Pain disorder with related psychological factors] Onset: 09-02-2010 Resolved: 11-08-2014 11-08-2014 Chronic Mycoses (20 sources) Candidiasis; Translations: [Other sites of candidiasis] Onset: 05-04-2023 05-04-2023 Episodic Nonspecific chest pain (13 sources) Chest pain; Translations: [Other chest pain] Resolved: 09-26-2021 04-18-2005 Episodic Nutritional deficiencies (20 sources) Cobalamin deficiency; Translations: [Deficiency of other specified B group vitamins] Onset: 08-18-2019 08-18-2019 Episodic Open wounds of extremities (20 sources) Open wound of hand; Translations: [Laceration without foreign body of unspecified hand, initial encounter] Onset: 09-06-2022 Episodic Other connective tissue disease (13 sources) Muscle weakness of limb; Translations: [Other symptoms and signs involving the musculoskeletal system] Onset: 11-25-2016 Resolved: 09-26-2021 07-08-2018 Episodic Other connective tissue disease (15 sources) Recurrent falls ; Translations: [Repeated falls] Onset: 11-25-2016 Resolved: 09-26-2021 11-25-2016 Episodic Other connective tissue disease (4 sources) Repeated falls; Translations: [Repeated falls] Onset: 03-08-2022 Episodic Other connective tissue disease (9 sources) Thigh pain; Translations: [Pain in unspecified thigh] Onset: 03-07-2011 Resolved: 07-08-2018 07-08-2018 Episodic Other ear and sense organ disorders (11 sources) Wax in ear canal; Translations: [Impacted cerumen, unspecified ear] Onset: 05-04-2023 05-04-2023 Episodic Other injuries and conditions due to external causes (11 sources) Closed injury of head; Translations: [Unspecified injury of head, initial encounter] Onset: 05-04-2023 05-04-2023 Episodic Other injuries and conditions due to external causes (11 sources) Blister; Translations: [Other injury of unspecified body region, initial encounter] Onset: 05-04-2023 05-04-2023 Episodic Other lower respiratory disease (9 sources) Cough; Translations: [Cough] Onset: 09-09-2013 Resolved: 11-08-2014 11-08-2014 Episodic Other non-traumatic joint disorders (20 sources) Pain in right shoulder; Translations: [Pain in joint, shoulder region] Onset: 09-06-2022 05-04-2023 Episodic Other non-traumatic joint disorders (11 sources) Pain in unspecified knee; Translations: [Pain in joint, lower leg] Onset: 05-04-2023 05-04-2023 Episodic Other non-traumatic joint disorders (2 sources) Pain in right hip; Translations: [Pain in right hip] Onset: 07-19-2023 Episodic Other non-traumatic joint disorders (2 sources) Pain in left ankle and joints of left foot; Translations: [Chronic pain of left ankle] Onset: 10-27-2024 Episodic Other non-traumatic joint disorders (1 source) Other instability, left ankle; Translations: [Ankle instability, left] Onset: 10-27-2024 Episodic Other nutritional; endocrine; and metabolic disorders (11 sources) H/O: hypothyroidism; Translations: [Personal history of other endocrine, nutritional and metabolic disease] Onset: 05-04-2023 05-04-2023 Episodic Other upper respiratory infections (18 sources) Laryngitis; Translations: [Acute laryngitis] Onset: 09-09-2013 Resolved: 11-08-2014 11-08-2014 Episodic Pneumonia (except that caused by tuberculosis or sexually transmitted disease) (11 sources) Pneumonia; Translations: [Pneumonia, unspecified organism] Onset: 05-04-2023 05-04-2023 Episodic Pulmonary heart disease (20 sources) Pulmonary embolism; Translations: [Other pulmonary embolism without acute cor pulmonale] Onset: 08-11-2011 Resolved: 03-07-2020 06-17-2021 Episodic Residual codes; unclassified (9 sources) Family history of cancer of colon; [...] Onset: 01-29-2009 07-08-2018 Episodic Sprains and strains (14 sources) Strain of calf muscle; Translations: [Strain [...] (2 sources) Sprain of left ankle 10-27-2024 Results Test Name Value Interpretation Reference Range Facility Protime w/INR Fingerstickon 02-21-2025 INR Coag (PPP) [Relative time] 2.4 {INR} Normal [facility] Comment on above: Result Comment: Crit ical Value > 4.0 Performed By: #### L [id number] #### [facility] [address] [place], [address] Protime [place] 25.4 SEC High 11.7-14.9 [facility] Comment on above: Performed By: #### L [id number] #### [facility] [address] [place], [address] Protime w/INR Fingerstickon 02-07-2025 INR Coag (PPP) [Relative time] 2.5 {INR} Normal [facility] Comment on above: Result Comment: Crit ical Value > 4.0 Performed By: #### L [id number] #### [facility] [address] [place], [address] Protime [place] 27.1 SEC High 11.7-14.9 [facility] Comment on above: Performed By: #### L [id number] #### [facility] [address] [place], [address] Protime w/INR Fingerstickon 02-01-2025 INR Coag (PPP) [Relative time] 3.2 {INR} Normal [facility] Comment on above: Result Comment: Crit ical Value > 4.0 Performed By: #### L [id number] #### [facility] [address] [place], [address] Protime [place] 32.6 SEC High 11.7-14.9 [facility] Comment on above: Performed By: #### L [id number] #### [facility] [address] [place], [address] Prothrombin Time w/INRon INR Coag (PPP) [Relative time] 4.0 {INR} Invalid Interpretation Code [facility] Comment on above: Result Comment: CRIT ICAL VALUE CALLED TO MARIA TERESA SALVADOR ([facility]) 01/31/25 0949 Steven Fagan. RESULTS READ BACK BY SAME. Performed By: #### L 300.3900 #### [facility] [address] [place], [address] PT Coag (PPP) [Time] 40.0 s High 11.7-14.9 [facility] Comment on above: Performed By: #### L 300.3900 #### [facility] [address] [place], [address] Protime w/INR Fingerstickon 01-24-2025 INR Coag (PPP) [Relative time] 3.8 {INR} Normal [facility] Comment on above: Result Comment: Crit ical Value > 4.0 Performed By: #### L [id number] #### [facility] [address] [place], [address] Protime [place] 38.5 SEC High 11.7-14.9 [facility] Comment on above: Performed By: #### L [id number] #### [facility] [address] [place], [address] Protime w/INR Fingerstickon 01-17-2025 INR Coag (PPP) [Relative time] 1.5 {INR} Normal [facility] Comment on above: Result Comment: Crit ical Value > 4.0 Performed By: #### L [id number] #### [facility] [address] [place], [place], [address] Protime [place] 17.2 SEC High 11.7-14.9 [facility] Comment on above: Performed By: #### L [id number] #### [facility] [address] [place], [place], [address] CNOVon 01-10-2025 CNOV Office Visit (PSYLWM ) RANDOLPH HUNTER ([id number]) 1950 F Date Time Provider Department 01/10/25 11:00 AM GILMER COTTON PSYLWM During your visit today, we recorded the following information about you: Gilmer Cotton, PhD 01/10/2025 12:09 PM Signed [facility] Department Progress Note Randolph Hunter 01/10/2025 [id number] PROVIDER: Gilmer Cotton, PhD CPT Code: Time: 50 minutes Setting: Patient seen in person Parties Present: Patient Treatment Modality/Interventions: Cognitive Behavioral Reassurance/Supportive Insight oriented Problem solving Processing of emotions Assertiveness training Psychoeducation MENTAL STATUS: Mood: variable, dysthymic Affect: mood-congruent Thoughts/Associations:goal directed Suicidal/Homicidal Ideation: None expressed or evidenced Other Prominent Symptoms: Therapy Focus/Content of Session: Self-care, Stress management, Mood/affect regulation, and Self-esteem Radnolph was under the weather today... fatigue and bowel issues she had a UTI and just finishing antibiotics We talked about her brother and she regarding their experience with their mother brother who was younger... loving mom but he didnt get as much material stuff as wished Randolph... bad mom who was mean and not very loving new grandson born yesterday and delight about that MEDICATIONS: Per medical record: Current Outpatient Medications [...] directed once a month. blood sugar diagnostic ([employer] VERIO TEST STRIPS) test strip Test blood [...] Issues: No change from previous appointment DIAGNOSIS: [place] I (more content not included)... Normal [facility] Protime w/INR Fingerstickon 01-09-2025 INR Coag (PPP) [Relative time] 2.9 {INR} Normal [facility] Comment on above: Result Comment: Crit ical Value > 4.0 Performed By: #### L [id number] #### [facility] [address] [place], [address] Protime [place] 30.5 SEC High 11.7-14.9 [facility] Comment on above: Performed By: #### L [id number] #### [facility] [address] [place], [place], [id number] Urine Cultureon 01-06-2025 [facility] Klebsiella pneumonia e sp pneum [place] Count 50,000-80,000 Escherichia coli Escherichia coli Klebsiella [...] TMP SMX Islt NORMA <=20 S Normal [facility] Comment on above: Performed By: #### L 400.0001, #### [facility] [address] [place], [address] Urinalysis, Completeon 01-03 RBC 10-25 SEEN Normal 0-5 [facility] Comment on above: Order Comment: CLAU TER SPECIMEN Performed By: #### L 400.0001, M100.0 #### [facility] [address] [place], [address] WBC >100 SEEN Normal 0-5 [facility] Comment on above: Order Comment: CLAU TER SPECIMEN Performed By: #### L 400.0001, M1.2199 #### [facility] [address] [place], [address] BACTERIA 0 SEEN Normal None Seen [facility] Comment on above: Order Comment: CLAU TER SPECIMEN Performed By: #### L 400.0001, .2199 #### [facility] [address] [place], [address] EPI,SQUAMOUS 0 SEEN Normal 5-10 [facility] Comment on above: Order Comment: CLAU TER SPECIMEN Performed By: #### L 400.0001, .2199 #### [facility] [address] [place], [address] Mucus Ql (Urine sed) 0 SEEN Normal [facility] Comment on above: Order Comment: CLAU TER SPECIMEN Performed By: #### L 400.0001, #### [facility] [address] [place], [address] Protime w/INR Fingerstickon 01-02-2025 INR Coag (PPP) [Relative time] 2.4 {INR} Normal [facility] Comment on above: Result Comment: Crit ical Value > 4.0 Performed By: #### L 9200.0000 #### [facility] [address] [place], [address] Protime Coagsen 25.4 SEC High 11.7-14.9 [facility] Comment on above: Performed By: #### L 9200.0000 #### [facility] [address] [place], [address] Protime w/INR Fingerstickon 12-19-2024 INR Coag (PPP) [Relative time] 2.3 {INR} Normal [facility] Comment on above: Result Comment: Crit ical Value > 4.0 Performed By: #### L 9200.0000 #### [facility] [address] [place], [address] Protime Coagsen 24.7 SEC High 11.7-14.9 [facility] Comment on above: Performed By: #### L 9200.0000 #### [facility] [address] [place], [address] CNOVon 12-06-2024 CNOV Office Visit (PSYLWM ) RANDOLPH HUNTER ([id number]) 1950 F Date Time Provider Department 12/06/24 11:00 AM GILMER COTTON PSYLWM During your visit today, we recorded the following information about you: Gilmer Cotton, PhD 12/06/2024 12:04 PM Signed [facility] Department Progress Note Randolph Hunter 12/06/2024 [id number] PROVIDER: Gilmer Cotton, PhD CPT Code: Time: [...] illness Pt moved now a week at [facility] [place] so far and she believes it [...] Assisted Living room while she is in [facility] [employer] rooms MEDICATIONS: Per medical record: Current [...] directed once a month. blood sugar diagnostic (ClaritureUCH VERIO TEST STRIPS) test strip Test blood [...] Issues: No change from previous appointment DIAGNOSIS: [place] I: Depres (more content not included)... Normal [facility] Basic Metabolic Profile (BMP )on 12-05-2024 BUN/CRE 17.2 RATIO Normal 10-20 [facility] Comment on above: Order Comment: 130.2 Performed By: #### L 9200.0000 #### [facility] [address] [place], [place], [id number] Calcium [Mass/Vol] 8.5 mg/dL Normal 7.6-11.0 [facility] Comment on above: Order Comment: 130.2 Performed By: #### L 9200.0000 #### [facility] [address] [place], [address] Chloride [Moles/Vol] 107 mmol/L Normal 98-108 [facility] Comment on above: Order Comment: 130.2 Performed By: #### L 9200.0000 #### [facility] [address] [place], [address] CO2 [Moles/Vol] 26.6 mmol/L Normal 21.0-32.0 [facility] Comment on above: Order Comment: 130.2 Performed By: #### L 9200.0000 #### [facility] [address] [place], [address] Creatinine [Mass/Vol] 0.93 mg/dL Normal 0.70-1.20 [facility] Comment on above: Order Comment: 130.2 Performed By: #### L 9200.0000 #### [facility] [address] [place], [address] GAP 6 Normal 5-15 [facility] Comment on above: Order Comment: 130.2 Performed By: #### L 9200.0000 #### [facility] [address] [place], [address] GFR/1.73 sq M.predicted among non-blacks MDRD (S/P/Bld) [Vol rate/Area] 65 mL/min/{1.73_m2} Normal >60 [facility] Comment on above: Order Comment: 130.2 Result Comment: mL/m in/1.73m2 CKD-EPI Creatinine Equation (2020) Performed By: #### L 9200.0000 #### [facility] [address] [place], [address] Glucose [Mass/Vol] 97 mg/dL Normal 70-99 [facility] Comment on above: Order Comment: 130.2 Performed By: #### L 9200.0000 #### [facility] [address] [place], [address] Potassium [Moles/Vol] 4.9 mmol/L Normal 3.3-5.1 [facility] Comment on above: Order Comment: 130.2 Result Comment: Hemo lysis present, Results??could be affected. ?? Performed By: #### L 9200.0000 #### [facility] [address] [place], [address] Sodium [Moles/Vol] 140 mmol/L Normal 133-145 [facility] Comment on above: Order Comment: 130.2 Performed By: #### L 9200.0000 #### [facility] [address] [place], [address] Urea nitrogen [Mass/Vol] 16 mg/dL Normal 4-19 [facility] Comment on above: Order Comment: 130.2 Performed By: #### L 9200.0000 #### [facility] [address] [place], [address] CBC-Complete Blood Cnt No Di ffon 12-05-2024 Erythrocyte distribution width (RBC) [Ratio] 13.6 % Normal 11.6-14.6 [facility] Comment on above: Order Comment: 130.2 Performed By: #### L 500.2500, L100.0500, L300.3900 #### [facility] [address] [place], [address] Hematocrit (Bld) [Volume fraction] 31.9 % Low 37-47 [facility] Comment on above: Order Comment: 130.2 Performed By: #### L 500.2500, L100.0500, L300.3900 #### [facility] [address] [place], [address] Hemoglobin (Bld) [Mass/Vol] 10.4 g/dL Low 12.0-15.0 [facility] Comment on above: Order Comment: 130.2 Performed By: #### L 500.2500, L100.0500, L300.3900 #### [facility] [address] [place], [address] MCH (RBC) [Entitic mass] 30.2 pg Normal 27.0-32.0 [facility] Comment on above: Order Comment: 130.2 Performed By: #### L 500.2500, L100.0500, L300.3900 #### [facility] [address] [place], [address] MCHC (RBC) [Mass/Vol] 32.6 g/dL Normal 32-36 [facility] Comment on above: Order Comment: 130.2 Performed By: #### L 500.2500, L100.0500, L300.3900 #### [facility] [address] [place], [address] MCV (RBC) [Entitic vol] 92.7 fL Normal 81-99 [facility] Comment on above: Order Comment: 130.2 Performed By: #### L 500.2500, L100.0500, L300.3900 #### [facility] [address] [place], [address] Platelet mean volume (Bld) [Entitic vol] 10.1 fL Normal 6.2-12.0 [facility] Comment on above: Order Comment: 130.2 Performed By: #### L 500.2500, L100.0500, L300.3900 #### [facility] [address] [place], [address] Platelets (Bld) [#/Vol] 147 10*3/uL Low 150-450 [facility] Comment on above: Order Comment: 130.2 Performed By: #### L 500.2500, L100.0500, L300.3900 #### [facility] [address] [place], [address] RBC (Bld) [#/Vol] 3.44 10*6/uL Low 4.2-5.4 [facility] Comment on above: Order Comment: 130.2 Performed By: #### L 500.2500, L100.0500, L300.3900 #### [facility] [address] [place], [address] RDW SD 45.9 fl High 35.1-43.9 [facility] Comment on above: Order Comment: 130.2 Performed By: #### L 500.2500, L100.0500, L300.3900 #### [facility] [address] [place], [address] WBC (Bld) [#/Vol] 4.1 10*3/uL Low 4.4-11.0 [facility] Comment on above: Order Comment: 130.2 Performed By: #### L 500.2500, L100.0500, L300.3900 #### [facility] [address] [place], [address] Prothrombin Time w/INRon INR Coag (PPP) [Relative time] 1.7 {INR} Normal [facility] Comment on above: Order Comment: 130.2 Performed By: #### L 500.2500, L100.0500, L300.3900 #### [facility] [address] [place], [address] PT Coag (PPP) [Time] 20.2 s High 11.7-14.9 [facility] Comment on above: Order Comment: 130.2 Performed By: #### L 500.2500, L100.0500, L300.3900 #### [facility] [address] [place], [address] MRI ANKLE WO IVCON LTon 05-2 MRI [...] number above, please feel free to contact [facility] eRadiology at [phone]. [id number] [facility] CNOVon 10-27-2024 CNOV Office Visit (PODIWS ) RANDOLPH HUNTER ([id number]) 1950 F Date Time Provider Department 10/27/24 [...] and injured herself. She is currently at [facility]. Has a history of cerebral palsy [...] sugar diagnost (more content not included)... Normal [facility] XR ANKLE 3V AP/LAT/OBL LTon [...] No radiographic evidence of acute osseous injury Lodging Facilities Attendant: CEM Transcribe Date/Time: Nov 01 2024 4:44P Dictated by : JAYDEN JOVEL MD This examination was interpreted and the report reviewed and electronically signed by: JAYDEN JOVEL MD on Nov 01 2024 4:45PM EST [id number] Normal [facility] XR TIBIA FIBULA 2V AP/LAT [...] No radiographic evidence of acute osseous injury Lodging Facilities Attendant: PSCB Transcribe Date/Time: Nov 01 2024 4:44P Dictated by : JAYDEN JOVEL MD This examination was interpreted and the report reviewed and electronically signed by: JAYDEN JOVEL MD on Nov 01 2024 4:45PM EST [id number] Normal [facility] PT panel Coag (PPP)on 2024 INR Coag (PPP) [Relative time] 2.3 {INR} High 0.9-1.3 [facility] Comment on above: Order Comment: Speci men Type: BLOOD SPECIMEN Ordering Facility: [facility] Address: [address] [place] [address] Result Comment: Kaycee min K Antagonist (VKA) Therapeutic Range: INR 2 to 3 (Target INR of 2.5) Note: For patients treated with VKA drugs, such as warfarin, the [employer] 2012 Guideline recommends [...] Chest 2012, 141:7S-47S Roshni CASTILLO et al. [facility] 2017, 70: 252-289 Performed By: #### 3 4528-0 #### [facility] CLIA [id number] [address] [place], [place] [address] [facility] PT Coag (PPP) [Time] 23.1 s High 9.7-13.0 [facility] Comment on above: Order Comment: Suzanne garcia Type: BLOOD SPECIMEN Ordering Facility: [facility] Address: [address] [place] [address] Performed By: #### 3 4528-0 #### [facility] CLIA [id number] [address] [place], [place] [address] [facility] PT panel Coag (PPP)on 2024 INR Coag (PPP) [Relative time] 3.8 {INR} High 0.9-1.3 [facility] Comment on above: Order Comment: Suzanne garcia Type: BLOOD SPECIMEN Ordering Facility: [facility] Address: [address] [place] [address] Result Comment: Kaycee min K Antagonist (VKA) Therapeutic Range: INR 2 to 3 (Target INR of 2.5) Note: For patients treated with VKA drugs, such as warfarin, the [employer] 2012 Guideline recommends [...] 252-289 Performed By: #### 3 4528-0 #### [facility] CLIA [id number] [address] [place], [place] [address] [facility] PT Coag (PPP) [Time] 37.1 s High 9.7-13.0 [facility] Comment on above: Order Comment: Suzanne garcia Type: BLOOD SPECIMEN Ordering Facility: [facility] Address: [address] [place] [address], [facility], [place] [address] Performed By: #### 3 4528-0 #### [facility] TYRELL [id number] [address] [place] [address] [place] CNOVon 10-19-2024 CNOV Office Visit (ORMDNA ) RANDOLPH HUNTER ([id number]) 1950 F Date Time Provider Department 10/19/24 [...] as well. Recommended follow up with Dr. Pleaez as she has seen him in the [...] directed once a month. blood sugar diagnostic (ClaritureUCH VERIO TEST STRIPS) test strip Test blood [...] breathe hourly while awake. PT/INR test meter (Perfect MemoryGUCHEK XS PRO) misc Check Protime weekly. Dx: [...] Status Change Penicillins Hives Dioxicillin Promethazine Intolerance Lxmmcrq-Wgc-Hqt Red* Myalgia PAST MEDICAL HISTORY PAST MEDICAL HISTORY Diagnosis Date CAD (coronary artery disease) Carotid a (more content not included)... Normal [facility] Large Joint Arthro/Inj: L kn [...] these instructions. Informed Consent Consent Obtained: Verbal [place] Protocol A moment to CARE was completed. [...] the bedside nurse for hospitalized patients) applicable. [facility] CNDSon 09-28-2024 DS HNO ID: [id number] Author: SAGE LOERA MD Service: Hospital Medicine [...] inability to stand pivot necessitating going to senior living facility for rehab SUMMARY OF WHAT HAPPENED WHILE I WAS IN THE HOSPITAL: Orthopedics agrees no surgical intervention now resume exercises when you get to the senior living facility no ligamentous injury evident on CT [...] kidney disease) Depression, recurrent CP (cerebral palsy) ([facility]) Hypomagnesemia Fall Resolved Problems: * No resolved hospital problems. 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 Normal [facility] Magnesium SerPl-mCncon 09-28 Magnesium [Mass/Vol] 1.7 mg/dL Normal 1.7-2.3 [facility] Comment on above: Order Comment: Speccandelaria garcia Type: BLOOD SPECIMENOrdering Facility: [facility] Address: [address] [place] [address] Performed By: #### 1 9123-9 ####[facility] [id number] [address] OF [facility] NURSING PROGon 09-28-2024 NURSING PROG HNO ID: [id number] Author: CHARLEY BARRIENTOS RN Service: Nursing Author Type: Registered Nurse Type: Nursing Progress Note Filed: 09/28/2024 16:32 Note Text: Other: 1625: Patient discharged in stable condition. Left floor via cart w/[employer]. Discharge paperwork and all personal belongings w/patient. Normal [facility] PT panel Coag (PPP)on 2024 INR Coag (PPP) [Relative time] 2.1 {INR} High 0.9-1.3 [facility] Comment on above: Order Comment: Suzanne garcia Type: BLOOD SPECIMENOrdering Facility: [facility] Address: [address] [place] [address] Result Comment: Kaycee min K Antagonist (VKA) Therapeutic Range: INR 2 to 3 (Target INR of 2.5) Note: For patients treated with VKA drugs, such as warfarin, the [employer] 2012 Guideline recommends [...] Chest 2012, 141:7S-47S Roshni CASTILLO et al. [facility] 2017, 70: 252-289 Performed By: #### 3 4528-0 ####[facility] [id number] [place] [address] [place] PT Coag (PPP) [Time] 22.0 s High 9.7-13.0 [facility] Comment on above: Order Comment: Suzanne garcia Type: BLOOD SPECIMENOrdering Facility: [facility] Address: [address] [place] [address] Performed By: #### 3 4528-0 ####[facility] [id number] [place] [address] [facility] PT panel Coag (PPP)on 2024 INR Coag (PPP) [Relative time] 2.8 {INR} High 0.9-1.3 [facility] Comment on above: Order Comment: Suzanne garcia Type: BLOOD SPECIMENOrdering Facility: [facility] Address: [address] [place] [address] Result Comment: Kaycee min K Antagonist (VKA) Therapeutic Range: INR 2 to 3 (Target INR of 2.5) Note: For patients treated with VKA drugs, such as warfarin, the [employer] 2012 Guideline recommends [...] Chest 2012, 141:7S-47S Roshni RA, et al. [facility] 2017, 70: 252-289 Performed By: #### 3 4528-0 ####[facility] [id number] [address] [place] PT Coag (PPP) [Time] 27.9 s High 9.7-13.0 [facility] Comment on above: Order Comment: Speci men Type: BLOOD SPECIMENOrdering Facility: [facility] Address: [address] [place] [address] Performed By: #### 3 4528-0 ####[facility] [id number] [address] OF [place] NUTRITIONon 09-26-2024 NUTRITION HNO ID: [id number] Author: SALVADOR ISLAS RD Service: Nutrition Therapy [...] Supplement 1 Frequency PM SNACK 09/19/24 1312 09/19/24214 Diet Regular START NOW 09/19/24211 Anthropometrics: Height: 157.5 cm (5' 2") Weight: 94.9 kg (209 lb 3.5 oz) Body mass index is 38.27 kg/m?. Lines, Drains, and Airways Drain Duration External Collection Device 09/18/24 2332 [facility] 7 days MNT Billing: $ Reassessment: 1-15 minutes SIGNATURE: Salvador Islas RD PATIENT NAME: Randolph Hunter DATE: September 26, 2024 TIME: 3:09 PM Normal [facility] PT panel Coag (PPP)on 2024 INR Coag (PPP) [Relative time] 4.1 {INR} High 0.9-1.3 [facility] Comment on above: Order Comment: Speci men Type: BLOOD SPECIMENOrdering Facility: [facility] Address: [address] [place] [address] Result Comment: Kaycee min K Antagonist (VKA) Therapeutic Range: INR 2 to 3 (Target INR of 2.5) Note: For patients treated with VKA drugs, such as warfarin, the [employer] 2012 Guideline recommends [...] GH, et al. Chest 2012, 141:7S-47S Roshni RA et al. [facility] 2017, 70: 252-289 Performed By: #### 3 4528-0 ####[facility]ORYCL[facility] [id number] [address] OF [facility] PT Coag (PPP) [Time] 39.9 s High 9.7-13.0 [facility] Comment on above: Order Comment: Speci men Type: BLOOD SPECIMENOrdering Facility: [facility] Address: [address], [place] [address] Performed By: #### 3 4528-0 ####[facility]ORYCLIA [id number] [place], [place] [address] [place] [address] STATES [place] [facility] THERAPY NTon 09-26-2024 THERAPY NT HNO ID: [id number] Author: ESTELLE CAGE PT Service: Physical Therapy Author Type: Physical Therapist Type: Therapy (PT/OT/Speech/Resp) Filed: 09/26/2024 12:08 Note Text: Summary: PT treatment Physical Therapy Treatment Summary SERVICE DATE: 09/26/2024 SERVICE TIME: 1130 to 1155 ROOM: [place] [address] PT 6 Clicks Score: 14 DISCHARGE RECOMMENDATIONS [...] is struggling to ambulate. Patient admitted to [facility] with Dx: Decreased activities of daily living (ADL), Fall at home, initial encounter Relevant Past Medical History: DM, edema, depression,asthma, obesity, irsutism, venous insufficiency, oseteomyeliitis of foot, SLE, cerebral palsy, pulmonary embolism, hypothyroidism, insomnai, CAD, migraines, HTN, hysterectomy HOME LIVING Patient Lives With: Facility Care, Spouse, Other: See Comment Comments: [place] with spouse Assistance Available: 24-Hour Comments: [facility] staff for toileting and shower Entry To Home: No Stairs Number Of Stairs To Bed/Bath: 0 Tub/Shower Type: Accessible WIS with shower chair + grab bars, has assistance/supervision for transfers Laundry: [facility] staff completes Equipment Owned: Lift Chair, Commode- [...] DIAGNOSIS Reduced mobility-other TREATMENT INTERVENTIONS Therapeutic Activity (20948) Timed Code Treatment (minutes): 25 Skilled Treatment Time (minutes): 25 Therapeutic Activity (03741) Treatment Minutes: 25 $ Therapeutic Activity (97664) Billed Units: 2 units TRAINING AND EDUCATION [...] Assistance, Additional Inform (more content not included)... [facility] THERAPY NT HNO ID: [id number] Author: BARBARA CHU OTR/Abiodun Service: Occupational Therapy Author Type: Occupational Therapist Type: Therapy (PT/OT/Speech/Resp) Filed: 09/26/2024 11:51 Note Text: Summary: OT precert note Occupational Therapy Treatment Summary SERVICE DATE: 09/26/2024 SERVICE TIME: 1100 to 1136 ROOM: [id number]- OT 6 Clicks Score: 13 DISCHARGE RECOMMENDATIONS [...] is struggling to ambulate. Patient admitted to [facility] with Dx: Decreased activities of daily living (ADL), Fall at home, initial encounter Relevant Past Medical History: DM, edema, depression,asthma, obesity, irsutism, venous insufficiency, oseteomyeliitis of foot, SLE, cerebral palsy, pulmonary embolism, hypothyroidism, insomnai, CAD, migraines, HTN, hysterectomy HOME LIVING Patient Lives With: Facility Care, Spouse, Other: See Comment Comments: [facility] with spouse Assistance Available: 24-Hour Comments: [facility] staff for toileting and shower Entry To Home: No Stairs Number Of Stairs To Bed/Bath: 0 Tub/Shower Type: Accessible WIS with shower chair + grab bars, has assistance/supervision for transfers Laundry: [facility] staff completes Equipment Owned: Lift Chair, Commode- [...] symptoms and signs-other TREATMENT INTERVENTIONS Therapeutic Exercise (15915), Self Shelter Management (16614) Timed Code Treatment (minutes): 27 Skilled Treatment [...] Contact Guard Assista (more content not included)... [facility] THERAPY NT HNO ID: [id number] Author: ESTELLE CAGE PT Service: Physical Therapy Author Type: Physical Therapist Type: Therapy (PT/OT/Speech/Resp) Filed: 09/26/2024 10:54 Note Text: PHYSICAL THERAPY MISSED VISIT SERVICE DATE: 09/26/2024 SERVICE TIME: 1045 ROOM: [place] [address] Patient not seen due to Patient Not Available.patient was cleaned up and had another bowel movement and has called for assist getting cleaned up. Will re approach when available/appropriate. Secure chat to team and spoke with cm. SIGNATURE: Estelle Cage PT PATIENT NAME: Randolph Hunter DATE: September 26, 2024 TIME: 10:53 AM [facility] THERAPY NT HNO ID: [id number] Author: ESTELLE CAGE PT Service: Physical Therapy Author Type: Physical Therapist Type: Therapy (PT/OT/Speech/Resp) Filed: 09/26/2024 09:42 Note Text: Summary: PT missed visit PHYSICAL THERAPY MISSED VISIT SERVICE DATE: 09/26/2024 SERVICE TIME: 929 ROOM: [place] [address] Patient not seen due to Patient Not Available. Patient was incontinent of bowel and PCNA in room to get patient cleaned up. Received request from for precert. Will re approach as patient is available. SIGNATURE: Estelle Cage PT PATIENT NAME: Randolph Hunter DATE: September 26, 2024 TIME: 9:41 AM [facility] THERAPY [facility] ID: [id number] Author: TANIA PERDUE OT/L Service: Occupational Therapy Author Type: Occupational Therapist Type: Therapy (PT/OT/Speech/Resp) Filed: 09/26/2024 09:21 Note Text: Summary: OT Missed Visit OCCUPATIONAL THERAPY MISSED VISIT SERVICE DATE: 09/26/2024 SERVICE TIME: 0908 ROOM: [place] [address] Patient not seen due to Patient Not Available. Initiated OT session however pt became incontinent of bowel during progression of supine>sit. PCNA and RN notified, deferred further OT at this time. CM notified as this patient has precert needs. Will re-attempt as schedule allows. SIGNATURE: Tania Perdue OT/L PATIENT NAME: Randolph Hunter DATE: September 26, 2024 TIME: 9:19 AM Normal [facility] CBC panel Auto (Bld)on 09-25 Erythrocyte distribution width (RBC) [Ratio] 13.5 % Normal 11.5-15.0 [facility] Comment on above: Order Comment: Speci men Type: BLOOD SPECIMENOrdering Facility: [facility] Address: [address] [place] [address] Performed By: #### 5 8410-2 ####[facility] LABORATORYCLIA [id number] [place] [address] [place] Hematocrit (Bld) [Volume fraction] 38.8 % Normal 36.0-46.0 [facility] Comment on above: Order Comment: Speci men Type: BLOOD SPECIMENOrdering Facility: [facility] Address: [address] [place] [address] Performed By: #### 5 8410-2 ####CERVANTES LABORATORYCLIA [id number] [place] [address] [place] Hemoglobin (Bld) [Mass/Vol] 13.1 g/dL Normal 11.5-15.5 [facility] Comment on above: Order Comment: Speci men Type: BLOOD SPECIMENOrdering Facility: [facility] Address: [address] [place] [address] Performed By: #### 5 8410-2 ####CERVANTES LABORATORYCLIA [id number] [place] [address] [place] MCH (RBC) [Entitic mass] 30.7 pg Normal 26.0-34.0 [facility] Comment on above: Order Comment: Speci men Type: BLOOD SPECIMENOrdering Facility: [facility] Address: [address] [place] [address] Performed By: #### 5 8410-2 ####CERVANTES LABORATORYCLIA [id number] [address] MCHC (RBC) [Mass/Vol] 33.8 g/dL Normal 30.5-36.0 [facility] Comment on above: Order Comment: Speci men Type: BLOOD SPECIMENOrdering Facility: [facility] Address: [address] [place] [address] Performed By: #### 5 8410-2 ####CERVANTES LABORATORYCLIA [id number] [address] MCV (RBC) [Entitic vol] 90.9 fL Normal 80.0-100.0 [facility] Comment on above: Order Comment: Speci men Type: BLOOD SPECIMENOrdering Facility: [facility] Address: [address] [place] [address] Performed By: #### 5 8410-2 ####CERVANTES LABORATORYCLIA [id number] [address] Nucleated RBC (Bld) [#/Vol] 10*3/uL Normal <0.01 [facility] Comment on above: Order Comment: Speci men Type: BLOOD SPECIMENOrdering Facility: [facility] Address: [address] [place] [address] Performed By: #### 5 8410-2 ####CERVANTES LABORATORYCLIA [id number] [address] Platelet mean volume (Bld) [Entitic vol] 10.2 fL Normal 9.0-12.7 [facility] Comment on above: Order Comment: Speci men Type: BLOOD SPECIMENOrdering Facility: [facility] Address: [address] [place] [address] Performed By: #### 5 8410-2 ####CERVANTES LABORATORYCLIA [id number] [address] Platelets (Bld) [#/Vol] 200 10*3/uL Normal 150-400 [facility] Comment on above: Order Comment: Speci men Type: BLOOD SPECIMENOrdering Facility: [facility] [address] [facility] [place] [id number] Performed By: #### 5 8410-2 ####CERVANTES LABORATORYCLIA [id number] [address] OF [facility] RBC (Bld) [#/Vol] 4.27 10*6/uL Normal 3.90-5.20 [facility] Comment on above: Order Comment: Speci men Type: BLOOD SPECIMENOrdering Facility: [facility] Address: [address] [place] [address] Performed By: #### 5 8410-2 ####CERVANTES LABORATORYCLIA [id number] [address] OF [facility] WBC (Bld) [#/Vol] 10.28 10*3/uL Normal 3.70-11.00 [facility] Comment on above: Order Comment: Speci men Type: BLOOD SPECIMENOrdering Facility: [facility] Address: [address] [place] [address] Performed By: #### 5 8410-2 ####[facility] LABORATORYCLIA [id number] [address] OF [place] Comprehensive metabolic 2000 panelon 09-25-2024 Albumin [Mass/Vol] 3.0 g/dL Low 3.9-4.9 [facility] Comment on above: Order Comment: Speci men Type: BLOOD SPECIMENOrdering Facility: [facility] Address: [address] [place] [address] Performed By: #### 1 9123-9, 68447-2 ####CERVANTES LABORATORYCLIA [id number] [address] ALP [Catalytic activity/Vol] 41 U/L Normal 34-123 [facility] Comment on above: Order Comment: Speci men Type: BLOOD SPECIMENOrdering Facility: [facility] Address: [address] [place] [address] Performed By: #### 1 9123-9, 94712-9 ####CERVANTES LABORATORYCLIA [id number] [place] [address] [place] ALT [Catalytic activity/Vol] 11 U/L Normal 7-38 [facility] Comment on above: Order Comment: Speci men Type: BLOOD SPECIMENOrdering Facility: [facility] Address: [address] [place] [address] Performed By: #### 1 23-9, 58670-4 ####CERVANTES LABORATORYCLIA [id number] [place] [address] [place] Anion gap [Moles/Vol] 11 mmol/L Normal 8-15 [facility] Comment on above: Order Comment: Speci men Type: BLOOD SPECIMENOrdering Facility: [facility] Address: [address] [place] [address] Performed By: #### 1 9122-9, ####CERVANTES LABORATORYCLIA [id number] [place] [address] [place] AST [Catalytic activity/Vol] 21 U/L Normal 13-35 [facility] Comment on above: Order Comment: Speci men Type: BLOOD SPECIMENOrdering Facility: [facility] Address: [address] [place] [address] Performed By: #### 1 9, ####CERVANTES LABORATORYCLIA [id number] [place] [address] [place] Bilirubin [Mass/Vol] 0.3 mg/dL Normal 0.2-1.3 [facility] Comment on above: Order Comment: Speci men Type: BLOOD SPECIMENOrdering Facility: [facility] Address: [address] [place] [address] Performed By: #### 1 23-9, ####CERVANTES LABORATORYCLIA [id number] [place] [address] [place] Calcium [Mass/Vol] 9.0 mg/dL Normal 8.5-10.2 [facility] Comment on above: Order Comment: Speci men Type: BLOOD SPECIMENOrdering Facility: [facility] Address: [address] [place] [address] Performed By: #### 1 23, ####CERVANTES LABORATORYCLIA [id number] [place] [address] [place] Chloride [Moles/Vol] 99 mmol/L Normal 98-107 [facility] Comment on above: Order Comment: Speci men Type: BLOOD SPECIMENOrdering Facility: [facility] Address: [address] [place] [address] Performed By: #### 1 239, ####CERVANTES LABORATORYCLIA [id number] [place] [address] [place] CO2 [Moles/Vol] 24 mmol/L Normal 22-30 [facility] Comment on above: Order Comment: Suzanne garcia Type: BLOOD SPECIMENOrdering Facility: [facility] Address: [address] [place] [address] Performed By: #### 1 9, ####CERVANTES LABORATORYCLIA [id number] [place] [address] [place] Creatinine [Mass/Vol] 0.66 mg/dL Normal 0.58-0.96 [facility] Comment on above: Order Comment: Speci men Type: BLOOD SPECIMENOrdering Facility: [facility] Address: [address] [place] [address] Performed By: #### 1 9123-02, ####CERVANTES LABORATORYCLIA [id number] [address] Creatinine and Glomerular filtration rate.predicted panel (S/P/Bld) 93 mL/min/1.73m??? Normal >=60 [facility] Comment on above: Order Comment: Suzanne garcia Type: BLOOD SPECIMENOrdering Facility: [facility] Address: [address] [place] [address] Result Comment: Winifred mated Glomerular Filtration Rate [...] reflect actual GFR. Performed By: #### 1 9122-9, ####CERVANTES LABORATORYCLIA [id number] [place] [address] [place] Glucose [Mass/Vol] 202 mg/dL High 74-99 [facility] Comment on above: Order Comment: Suzanne garcia Type: BLOOD SPECIMENOrdering Facility: [facility] Address: [address] [place] [address] Result Comment: The [place] [employer] (ADA) provides guidance for cutoff [...] Standards of Medical Care in Diabetes 2016, [employer]. Diabetes Care. 2016.39(Suppl 1). Performed By: #### 1 239, ####CERVANTES LABORATORYCLIA [id number] [place] [address] [place] Potassium [Moles/Vol] 4.4 mmol/L Normal 3.7-5.1 [facility] Comment on above: Order Comment: Suzanne garcia Type: BLOOD SPECIMENOrdering Facility: [facility] Address: [address] [place] [address] Performed By: #### 1 9, ####CERVANTES LABORATORYCLIA [id number] [place] [address] [place] Protein [Mass/Vol] 6.0 g/dL Low 6.3-8.0 [facility] Comment on above: Order Comment: Suzanne garcia Type: BLOOD SPECIMENOrdering Facility: [facility] Address: [address] [place] [address] Performed By: #### 1 91239, ####CERVANTES LABORATORYCLIA [id number] [address] [place] Sodium [Moles/Vol] 134 mmol/L Low 136-144 [facility] Comment on above: Order Comment: Suzanne garcia Type: BLOOD SPECIMENOrdering Facility: [facility] Address: [address] [place] [address] Performed By: #### 1 9123-9, 60879-0 ####CERVANTES LABORATORYCLIA [id number] [place] [address] [place] Urea nitrogen [Mass/Vol] 14 mg/dL Normal 7- [facility] Comment on above: Order Comment: Suzanne garcia Type: BLOOD SPECIMENOrdering Facility: [facility] Address: [address] [place] [address] Performed By: #### 1 9123-9, 36677-1 ####CERVANTES LABORATORYCLIA [id number] [place] [address] [place] Magnesium SerPl-mCncon 09-25 Magnesium [Mass/Vol] 1.5 mg/dL Low 1.7-2.3 [facility] Comment on above: Order Comment: Suzanne garcia Type: BLOOD SPECIMENOrdering Facility: [facility] Address: [address] [place] [address] Performed By: #### 1 9123-9, ####CERVANTES LABORATORYCLIA [id number] [address] [place] PT panel Coag (PPP)on 2024 INR Coag (PPP) [Relative time] 4.2 {INR} High 0.9-1.3 [facility] Comment on above: Order Comment: Suzanne garcia Type: BLOOD SPECIMENOrdering Facility: [facility] Address: [address] [place] [address] Result Comment: Kaycee min K Antagonist (VKA) Therapeutic Range: INR 2 to 3 (Target INR of 2.5) Note: For patients treated with VKA drugs, such as warfarin, the [employer] 2012 Guideline recommends [...] Chest 2012, 141:7S-47S Roshni RA, et al. [facility] 2017, 70: 252-289 Performed By: #### 3 4528-0 ####CERVANTES LABORATORYCLIA [id number] [address] STATES OF [facility] PT Coag (PPP) [Time] 41.3 s High 9.7-13.0 [facility] Comment on above: Order Comment: Suzanne garcia Type: BLOOD SPECIMENOrdering Facility: [facility] Address: [address] [place] [address] Performed By: #### 3 4528-0 ####[facility]FFAL[facility] LABORATORYCLIA [id number] [place] [id number] [facility] [place] CONSULT PROGon 09-23-2024 CONSULT PROG HNO ID: [id number] Author: PIPE FREEMAN RPh Service: Pharmacy Author [...] Freeman RPh DATE/TIME: 09/23/2024 12:07 PM Normal [facility] PT panel Coag (PPP)on 2024 INR Coag (PPP) [Relative time] 2.9 {INR} High 0.9-1.3 [facility] Comment on above: Order Comment: Suzanne garcia Type: BLOOD SPECIMENOrdering Facility: [facility] Address: [address] [place], [place] [address] Result Comment: Kaycee min K Antagonist (VKA) Therapeutic Range: INR 2 to 3 (Target INR of 2.5) Note: For patients treated with VKA drugs, such as warfarin, the [employer] 2012 Guideline recommends [...] Chest 2012, 141:7S-47S Roshni RA, et al. [facility] 2017, 70: 252-289 Performed By: #### 3 4528-0 ####[facility] LABORATORYCLIA [id number] [place] [address] [place] PT Coag (PPP) [Time] 29.1 s High 9.7-13.0 [facility] Comment on above: Order Comment: Suzanne garcia Type: BLOOD SPECIMENOrdering Facility: [facility] Address: [address] [place] [address] Performed By: #### 3 4528-0 ####[facility] LABORATORYCLIA [id number] [address] OF [facility] PT panel Coag (PPP)on 2024 INR Coag (PPP) [Relative time] 2.8 {INR} High 0.9-1.3 [facility] Comment on above: Order Comment: Suzanne garcia Type: BLOOD SPECIMENOrdering Facility: [facility] Address: [address] [place], [place] [address] Result Comment: Kaycee min K Antagonist (VKA) Therapeutic Range: INR 2 to 3 (Target INR of 2.5) Note: For patients treated with VKA drugs, such as warfarin, the [employer] 2012 Guideline recommends [...] 70: 252-289 Performed By: #### 3 4528-0 ####[facility] LABORATORYCLIA [id number] [address] OF [facility] PT Coag (PPP) [Time] 27.8 s High 9.7-13.0 [facility] Comment on above: Order Comment: Speci men Type: BLOOD SPECIMENOrdering Facility: [facility] Address: [address] [place] [address] Performed By: #### 3 4528-0 ####[facility] LABORATORYCLIA [id number] [place] [id number] [facility] THERAPY NTon 09-22-2024 THERAPY NT HNO ID: [id number] Author: ESTELLE CAGE PT Service: Physical Therapy Author Type: Riding Coach Type: Therapy (PT/OT/Speech/Resp) Filed: 09/22/2024 17:13 Note Text: Attestation signed by Estelle Cage PT at 09/22/2024 5:13 PM I reviewed and agree with the documentation corresponding to this therapy visit. SIGNATURE: Estelle Cage PT DATE: September 22, 2024 TIME: 5:13 PM Summary: PT Treat Physical Therapy Treatment Summary SERVICE DATE: 09/22/2024 SERVICE TIME: 1408 to 1439 ROOM: MC-1J-0507-1 PT 6 Clicks Score: 12 DISCHARGE RECOMMENDATIONS [...] is struggling to ambulate. Patient admitted to [facility] with Dx: Decreased activities of daily living (ADL), Fall at home, initial encounter Relevant Past Medical History: DM, edema, depression,asthma, obesity, irsutism, venous insufficiency, oseteomyeliitis of foot, SLE, cerebral palsy, pulmonary embolism, hypothyroidism, insomnai, CAD, migraines, HTN, hysterectomy HOME LIVING Patient Lives With: Facility Care, Spouse, Other: See Comment Comments: [facility] with spouse Assistance Available: 24-Hour Comments: [facility] staff for toileting and shower Entry To Home: No Stairs Number Of Stairs To Bed/Bath: 0 Tub/Shower Type: Accessible WIS with shower chair + grab bars, has assistance/supervision for transfers Laundry: [facility] staff completes Equipment Owned: Lift Chair, Commode- [...] DIAGNOSIS Reduced mobility-other TREATMENT INTERVENTIONS Therapeutic Activity (86213) Timed Code Treatment (minutes): 31 Skilled Treatment Time (minutes): 31 Therapeutic Activity (51101) Treatment Minutes: 31 $ Therapeutic Activity (90696) Billed Units: 2 units TRAINING AND EDUCATION [...] Sit: Modified In (more content not included)... [facility] THERAPY NT HNO ID: [id number] Author: CHRISTIANO MAYEN OT/Abiodun Service: ? Author Type: Occupational Therapist Type: Therapy (PT/OT/Speech/Resp) Filed: 09/22/2024 09:46 Note Text: Summary: OT Treatment Occupational Therapy Treatment Summary SERVICE DATE: 09/22/2024 SERVICE TIME: 08 to 40 ROOM: CG-3B-7003- OT 6 Clicks Score: 14 DISCHARGE RECOMMENDATIONS [...] is struggling to ambulate. Patient admitted to [facility] with Dx: Decreased activities of daily living (ADL), Fall at home, initial encounter Relevant Past Medical History: DM, edema, depression,asthma, obesity, irsutism, venous insufficiency, oseteomyeliitis of foot, SLE, cerebral palsy, pulmonary embolism, hypothyroidism, insomnai, CAD, migraines, HTN, hysterectomy HOME LIVING Patient Lives With: Facility Care, Spouse, Other: See Comment Comments: [facility] with spouse Assistance Available: 24-Hour Comments: [facility] staff for toileting and shower Entry To Home: No Stairs Number Of Stairs To Bed/Bath: 0 Tub/Shower Type: Accessible WIS with shower chair + grab bars, has assistance/supervision for transfers Laundry: [facility] staff completes Equipment Owned: Lift Chair, Commode- [...] on feet TREATMENT INTERVENTIONS Self Shelter Management (33456), Therapeutic Activity (13598) Timed Code Treatment (minutes): 40 Skilled Treatment Time (minutes): 40 TRAINING AND EDUCATION PROVIDED Activity Adaptation/Compensatory Strategies, Adaptive Equipment/DME, Bed Mobility, Benefits of In-Hospital Mobility, Cognitive Skills, Command Following, Discharge Planning, Expected Functional Level, Functional Mobility Involving ADLs, Grooming Tasks, Fine Motor Coordination, Insight into Deficits, Lower Extremity Dressing, Feeding Tasks, Memory/Attention, Orientation, Positioning, Role of Occupational Therapy, Safety/Judgment, Sitting Balance to Improve [place] with ADLs/Self-Care, Standing Balance to Improve [place] with ADLs/Self-Care, Transfer - Sit to Stand, Upper Extremity Bathing THERAPEUTIC SKILLS USED Activity Dosing, Cues for Sequencing/Proper Technique for Activity, Cuing Tactile, Cuing Verbal, Cuing Visual, Facilitation of Joint Range of Motion, Movement Facilitation, Muscle Activation Facilitation, Physical Assist, Task Analysis Learning, Teach-Back fo (more content not included)... Normal [facility] CBC panel Auto (Bld)on 09-21 Erythrocyte distribution width (RBC) [Ratio] 13.2 % Normal 11.5-15.0 [facility] Comment on above: Order Comment: Speci men Type: BLOOD SPECIMENOrdering Facility: [facility] Address: [address] [place] [address] Performed By: #### 5 8410-2 ####[facility] LABORATORYCLIA [id number] [address] [place] Hematocrit (Bld) [Volume fraction] 33.6 % Low 36.0-46.0 [facility] Comment on above: Order Comment: Speci men Type: BLOOD SPECIMENOrdering Facility: [facility] Address: [address] [place] [address] Performed By: #### 5 8410-2 ####CERVANTES LABORATORYCLIA [id number] [place] [address] [place] Hemoglobin (Bld) [Mass/Vol] 11.4 g/dL Low 11.5-15.5 [facility] Comment on above: Order Comment: Speci men Type: BLOOD SPECIMENOrdering Facility: [facility] Address: [address] [place] [address] Performed By: #### 5 8410-2 ####CERVANT[facility] LABORATORYCLIA [id number] [place] [address] MCH (RBC) [Entitic mass] 30.8 pg Normal 26.0-34.0 [facility] Comment on above: Order Comment: Speci men Type: BLOOD SPECIMENOrdering Facility: [facility] Address: [address] [place] [address] Performed By: #### 5 8410-2 ####CERVANTES LABORATORYCLIA [id number] [address] MCHC (RBC) [Mass/Vol] 33.9 g/dL Normal 30.5-36.0 [facility] Comment on above: Order Comment: Speci men Type: BLOOD SPECIMENOrdering Facility: [facility] Address: [address] [place] [address] Performed By: #### 5 8410-2 ####CERVANTES LABORATORYCLIA [id number] [address] MCV (RBC) [Entitic vol] 90.8 fL Normal 80.0-100.0 [facility] Comment on above: Order Comment: Speci men Type: BLOOD SPECIMENOrdering Facility: [facility] Address: [address] [place] [address] Performed By: #### 5 8410-2 ####CERVANTES LABORATORYCLIA [id number] [address] Nucleated RBC (Bld) [#/Vol] 10*3/uL Normal <0.01 [facility] Comment on above: Order Comment: Speci men Type: BLOOD SPECIMENOrdering Facility: [facility] Address: [address] [place] [address] Performed By: #### 5 8410-2 ####CERVANT[facility] LABORATORYCLIA [id number] [address] Platelet mean volume (Bld) [Entitic vol] 10.2 fL Normal 9.0-12.7 [facility] Comment on above: Order Comment: Speci men Type: BLOOD SPECIMENOrdering Facility: [facility] Address: [address] [place] [address] Performed By: #### 5 8410-2 ####CERVANT[facility] LABORATORYCLIA [id number] [address] Platelets (Bld) [#/Vol] 177 10*3/uL Normal 150-400 [facility] Comment on above: Order Comment: Speci men Type: BLOOD SPECIMENOrdering Facility: [facility] Address: [address] [place] [address] Performed By: #### 5 8410-2 ####CERVANTES LABORATORYCLIA [id number] [place] [address] [place] RBC (Bld) [#/Vol] 3.70 10*6/uL Low 3.90-5.20 [facility] Comment on above: Order Comment: Speci men Type: BLOOD SPECIMENOrdering Facility: [facility] Address: [address] [place] [address] Performed By: #### 5 8410-2 ####CERVANTES LABORATORYCLIA [id number] [address] OF [facility] WBC (Bld) [#/Vol] 5.94 10*3/uL Normal 3.70-11.00 [facility] Comment on above: Order Comment: Speci men Type: BLOOD SPECIMENOrdering Facility: [facility] Address: [address] [place] [address] Performed By: #### 5 8410-2 ####CERVANTES LABORATORYCLIA [id number] [address] OF [place] Comprehensive metabolic 2000 panelon 09-21-2024 Albumin [Mass/Vol] 2.8 g/dL Low 3.9-4.9 [facility] Comment on above: Order Comment: Speci men Type: BLOOD SPECIMENOrdering Facility: [facility] Address: [address] [place] [address] Performed By: #### 1 9123-9, 77675-4 ####CERVANTES LABORATORYCLIA [id number] [address] [place] ALP [Catalytic activity/Vol] 33 U/L Low 34-123 [facility] Comment on above: Order Comment: Speci men Type: BLOOD SPECIMENOrdering Facility: [facility] Address: [address] [place] [address] Performed By: #### 1 23-9, 14993-0 ####CERVANTES LABORATORYCLIA [id number] [place] [address] [place] ALT [Catalytic activity/Vol] 7 U/L Normal 7-38 [facility] Comment on above: Order Comment: Speci men Type: BLOOD SPECIMENOrdering Facility: [facility] Address: [address] [place] [address] Performed By: #### 1 239, 83593-0 ####CERVANTES LABORATORYCLIA [id number] [place] [address] [place] Anion gap [Moles/Vol] 8 mmol/L Normal 8-15 [facility] Comment on above: Order Comment: Speci men Type: BLOOD SPECIMENOrdering Facility: [facility] Address: [address] [place] [address] Performed By: #### 1 9, ####CERVANTES LABORATORYCLIA [id number] [place] [address] [place] AST [Catalytic activity/Vol] 18 U/L Normal 13-35 [facility] Comment on above: Order Comment: Speci men Type: BLOOD SPECIMENOrdering Facility: [facility] Address: [address] [place] [address] Performed By: #### 1 239, ####CERVANTES LABORATORYCLIA [id number] [place] [address] [place] Bilirubin [Mass/Vol] 0.2 mg/dL Normal 0.2-1.3 [facility] Comment on above: Order Comment: Speci men Type: BLOOD SPECIMENOrdering Facility: [facility] Address: [address] [place] [address] Performed By: #### 1 23-9, 50982-5 ####CERVANTES LABORATORYCLIA [id number] [place] [address] [place] Calcium [Mass/Vol] 8.4 mg/dL Low 8.5-10.2 [facility] Comment on above: Order Comment: Speci men Type: BLOOD SPECIMENOrdering Facility: [facility] Address: [address] [place] [address] Performed By: #### 1 23-9, 39448-1 ####CERVANTES LABORATORYCLIA [id number] [place] [address] [place] Chloride [Moles/Vol] 103 mmol/L Normal 98-107 [facility] Comment on above: Order Comment: Speci men Type: BLOOD SPECIMENOrdering Facility: [facility] Address: [address] [place] [address] Performed By: #### 1 9123-9, 98114-4 ####CERVANTES LABORATORYCLIA [id number] [place] [address] [place] CO2 [Moles/Vol] 27 mmol/L Normal 22-30 [facility] Comment on above: Order Comment: Speci men Type: BLOOD SPECIMENOrdering Facility: [facility] Address: [address] [place] [address] Performed By: #### 1 23-9, 84572-7 ####CERVANTES LABORATORYCLIA [id number] [place] [address] [place] Creatinine [Mass/Vol] 0.79 mg/dL Normal 0.58-0.96 [facility] Comment on above: Order Comment: Speci men Type: BLOOD SPECIMENOrdering Facility: [facility] Address: [address] [place] [address] Performed By: #### 1 9123-9, 54258-2 ####CERVANTES LABORATORYCLIA [id number] [address] Creatinine and Glomerular filtration rate.predicted panel (S/P/Bld) 79 mL/min/1.73m??? Normal >=60 [facility] Comment on above: Order Comment: Speci men Type: BLOOD SPECIMENOrdering Facility: [facility] Address: [address] [place] [address] Result Comment: Winifred mated Glomerular Filtration Rate [...] actual GFR. Performed By: #### 1 9123-9, ####CERVANTES LABORATORYCLIA [id number] [place] [address] [place] Glucose [Mass/Vol] 115 mg/dL High 74-99 [facility] Comment on above: Order Comment: Suzanne garcia Type: BLOOD SPECIMENOrdering Facility: [facility] Address: [address] [place] [address] Result Comment: The [place] [employer] (ADA) provides guidance for cutoff [...] Standards of Medical Care in Diabetes 2016, [employer]. Diabetes Care. 2016.39(Suppl 1). Performed By: #### 1 9123-9, ####CERVANTES LABORATORYCLIA [id number] [place] [address] [place] Potassium [Moles/Vol] 4.8 mmol/L Normal 3.7-5.1 [facility] Comment on above: Order Comment: Suzanne garcia Type: BLOOD SPECIMENOrdering Facility: [facility] Address: [address] [id number] Performed By: #### 1 9123-9, ####CERVANTES LABORATORYCLIA [id number] [place] [id number] [place] Protein [Mass/Vol] 5.6 g/dL Low 6.3-8.0 [facility] Comment on above: Order Comment: Suzanne garcia Type: BLOOD SPECIMENOrdering Facility: [facility] Address: [address] [place] [address] Performed By: #### 1 9123-9, 55236-1 ####CERVANTES LABORATORYCLIA [id number] [place] [address] [place] Sodium [Moles/Vol] 138 mmol/L Normal 136-144 [facility] Comment on above: Order Comment: Suzanne garcia Type: BLOOD SPECIMENOrdering Facility: [facility] Address: [address] [place] [address] Performed By: #### 1 9123-9, 61327-1 ####CERVANTES LABORATORYCLIA [id number] [place] [address] [place] Urea nitrogen [Mass/Vol] 16 mg/dL Normal 7-21 [facility] Comment on above: Order Comment: Suzanne garcia Type: BLOOD SPECIMENOrdering Facility: [facility] Address: [address] [place] [address] Performed By: #### 1 9123-9, 80120-6 ####CERVANTES LABORATORYCLIA [id number] [place] [address] [place] Magnesium SerPl-mCncon 09-21 Magnesium [Mass/Vol] 1.9 mg/dL Normal 1.7-2.3 [facility] Comment on above: Order Comment: Suzanne garcia Type: BLOOD SPECIMENOrdering Facility: [facility] Address: [address] [place] [address] Performed By: #### 1 9123-9, 02317-0 ####CERVANTES LABORATORYCLIA [id number] [place] [address] [place] PT panel Coag (PPP)on 2024 INR Coag (PPP) [Relative time] 2.5 {INR} High 0.9-1.3 [facility] Comment on above: Order Comment: Suzanne garcia Type: BLOOD SPECIMENOrdering Facility: [facility] Address: [address] [place] [address] Result Comment: Kaycee min K Antagonist (VKA) Therapeutic Range: INR 2 to 3 (Target INR of 2.5) Note: For patients treated with VKA drugs, such as warfarin, the [employer] 2012 Guideline recommends [...] Chest 2012, 141:7S-47S Roshni RA, et al. [facility] 2017, 70: 252-289 Performed By: #### 3 4528-0 ####CERVANTES LABORATORYCLIA [id number] [place] [address] [place] PT Coag (PPP) [Time] 25.1 s High 9.7-13.0 [facility] Comment on above: Order Comment: Suzanne garcia Type: BLOOD SPECIMENOrdering Facility: [facility] Address: [address] [place] [address] Performed By: #### 3 4528-0 ####CERVANTES LABORATORYCLIA [id number] [address] [place] CBC panel Auto (Bld)on 09-20 Erythrocyte distribution width (RBC) [Ratio] 13.2 % Normal 11.5-15.0 [facility] Comment on above: Order Comment: Suzanne garcia Type: BLOOD SPECIMENOrdering Facility: [facility] Address: [address] [place] [address] Performed By: #### 5 8410-2 ####CERVANTES LABORATORYCLIA [id number] [address] Hematocrit (Bld) [Volume fraction] 36.8 % Normal 36.0-46.0 [facility] Comment on above: Order Comment: Suzanne garcia Type: BLOOD SPECIMENOrdering Facility: [facility] Address: [address] [place] [address] Performed By: #### 5 8410-2 ####CERVANTES LABORATORYCLIA [id number] [address] Hemoglobin (Bld) [Mass/Vol] 12.4 g/dL Normal 11.5-15.5 [facility] Comment on above: Order Comment: Speci men Type: BLOOD SPECIMENOrdering Facility: [facility] Address: [address] [place] [address] Performed By: #### 5 8410-2 ####CERVANTES LABORATORYCLIA [id number] [address] [place] [facility] MCH (RBC) [Entitic mass] 30.8 pg Normal 26.0-34.0 [facility] Comment on above: Order Comment: Speci men Type: BLOOD SPECIMENOrdering Facility: [facility] Address: [address] [place] [address] Performed By: #### 5 8410-2 ####CERVANTES LABORATORYCLIA [id number] [address] MCHC (RBC) [Mass/Vol] 33.7 g/dL Normal 30.5-36.0 [facility] Comment on above: Order Comment: Speci men Type: BLOOD SPECIMENOrdering Facility: [facility] Address: [address] [place] [address] Performed By: #### 5 8410-2 ####CERVANTES LABORATORYCLIA [id number] [address] MCV (RBC) [Entitic vol] 91.5 fL Normal 80.0-100.0 [facility] Comment on above: Order Comment: Speci men Type: BLOOD SPECIMENOrdering Facility: [facility] Address: [address] [place] [address] Performed By: #### 5 8410-2 ####CERVANTES LABORATORYCLIA [id number] [address] Nucleated RBC (Bld) [#/Vol] 10*3/uL Normal <0.01 [facility] Comment on above: Order Comment: Speci men Type: BLOOD SPECIMENOrdering Facility: [facility] Address: [address] [place] [address] Performed By: #### 5 8410-2 ####CERVANTES LABORATORYCLIA [id number] [place] [address] [place] Platelet mean volume (Bld) [Entitic vol] 10.2 fL Normal 9.0-12.7 [facility] Comment on above: Order Comment: Speci men Type: BLOOD SPECIMENOrdering Facility: [facility] Address: [address] [place] [address] Performed By: #### 5 8410-2 ####[facility] LABORATORYCLIA [id number] [place] [address] [place] Platelets (Bld) [#/Vol] 175 10*3/uL Normal 150-400 [facility] Comment on above: Order Comment: Speci men Type: BLOOD SPECIMENOrdering Facility: [facility] Address: [address] [place] [address] Performed By: #### 5 8410-2 ####[facility] LABORATORYCLIA [id number] [place] [address] [place] RBC (Bld) [#/Vol] 4.02 10*6/uL Normal 3.90-5.20 [facility] Comment on above: Order Comment: Speci men Type: BLOOD SPECIMENOrdering Facility: [facility] Address: [address] [place] [address] Performed By: #### 5 8410-2 ####[facility] LABORATORYCLIA [id number] [place] [id number] [place] WBC (Bld) [#/Vol] 5.70 10*3/uL Normal 3.70-11.00 [facility] Comment on above: Order Comment: Speci men Type: BLOOD SPECIMENOrdering Facility: [facility] Address: [address] [place] [address] Performed By: #### 5 8410-2 ####CERVANTES LABORATORYCLIA [id number] [place] [id number] [facility] OF [place] Comprehensive metabolic 2000 panelon 09-20-2024 Albumin [Mass/Vol] 3.1 g/dL Low 3.9-4.9 [facility] Comment on above: Order Comment: Speci men Type: BLOOD SPECIMENOrdering Facility: [facility] Address: [address] [facility] [place] [id number] Performed By: #### 2 4322-8, ####CERVANTES LABORATORYCLIA [id number] [place] [address] [place] ALP [Catalytic activity/Vol] 41 U/L Normal 34-123 [facility] Comment on above: Order Comment: Speci men Type: BLOOD SPECIMENOrdering Facility: [facility] Address: [address] [place] [address] Performed By: #### 2 432-8, ####CERVANTES LABORATORYCLIA [id number] [place] [address] [place] ALT [Catalytic activity/Vol] 7 U/L Normal 7-38 [facility] Comment on above: Order Comment: Speci men Type: BLOOD SPECIMENOrdering Facility: [facility] Address: [address] [place] [address] Performed By: #### 2 4323-01, ####CERVANTES LABORATORYCLIA [id number] [place] [address] [place] Anion gap [Moles/Vol] 7 mmol/L Low 8-15 [facility] Comment on above: Order Comment: Speci men Type: BLOOD SPECIMENOrdering Facility: [facility] Address: [address] [place] [address] Performed By: #### 2 432-8, ####CERVANTES LABORATORYCLIA [id number] [place] [address] [place] AST [Catalytic activity/Vol] 16 U/L Normal 13-35 [facility] Comment on above: Order Comment: Speci men Type: BLOOD SPECIMENOrdering Facility: [facility] Address: [address] [place] [address] Performed By: #### 2 432-8, ####CERVANTES LABORATORYCLIA [id number] [place] [id number] [place] Bilirubin [Mass/Vol] 0.4 mg/dL Normal 0.2-1.3 [facility] Comment on above: Order Comment: Speci men Type: BLOOD SPECIMENOrdering Facility: [facility] Address: [address] [place] [address] Performed By: #### 2 432-8, ####CERVANTES LABORATORYCLIA [id number] [place] [address] [place] Calcium [Mass/Vol] 8.9 mg/dL Normal 8.5-10.2 [facility] Comment on above: Order Comment: Speci men Type: BLOOD SPECIMENOrdering Facility: [facility] Address: [address] [place] [address] Performed By: #### 2 4328, ####CERVANTES LABORATORYCLIA [id number] [place] [address] [place] Chloride [Moles/Vol] 102 mmol/L Normal 98-107 [facility] Comment on above: Order Comment: Speci men Type: BLOOD SPECIMENOrdering Facility: [facility] Address: [address] [place] [address] Performed By: #### 2 4328, ####CERVANTES LABORATORYCLIA [id number] [place] [address] [place] CO2 [Moles/Vol] 29 mmol/L Normal 22-30 [facility] Comment on above: Order Comment: Speci men Type: BLOOD SPECIMENOrdering Facility: [facility] Address: [address] [place] [address] Performed By: #### 2 4323-01, ####CERVANTES LABORATORYCLIA [id number] [place] [id number] [place] Creatinine [Mass/Vol] 0.82 mg/dL Normal 0.58-0.96 [facility] Comment on above: Order Comment: Speci men Type: BLOOD SPECIMENOrdering Facility: [facility] Address: [address] [place] [address] Performed By: #### 2 432-8, ####CERVANTES LABORATORYCLIA [id number] [place] [address] [place] Creatinine and Glomerular filtration rate.predicted panel (S/P/Bld) 76 mL/min/1.73m??? Normal >=60 [facility] Comment on above: Order Comment: Suzanne garcia Type: BLOOD SPECIMENOrdering Facility: [facility] Address: [address] [place] [address] Result Comment: Winifred mated Glomerular Filtration Rate [...] actual GFR. Performed By: #### 2 4323-8, 85398-7 ####[facility]FFAL[facility] LABORATORYCLIA [id number] [place] [id number] [place] Glucose [Mass/Vol] 134 mg/dL High 74-99 [facility] Comment on above: Order Comment: Suzanne garcia Type: BLOOD SPECIMENOrdering Facility: [facility] Address: [address] [place] [address] Result Comment: The [place] [employer] (ADA) provides guidance for cutoff [...] Standards of Medical Care in Diabetes 2016, [place] [employer]. Diabetes Care. 2016.39(Suppl 1). Performed By: #### 2 4323-8, 97961-4 ####CERVANTES LABORATORYCLIA [id number] [place] [address] [place] Potassium [Moles/Vol] 4.7 mmol/L Normal 3.7-5.1 [facility] Comment on above: Order Comment: Suzanne garcia Type: BLOOD SPECIMENOrdering Facility: [facility] Address: [address] [place] [address] Performed By: #### 2 4323-8, ####CERVANTES LABORATORYCLIA [id number] [address] [place] [facility] Protein [Mass/Vol] 5.9 g/dL Low 6.3-8.0 [facility] Comment on above: Order Comment: Speci men Type: BLOOD SPECIMENOrdering Facility: [facility] Address: [address] [place] [address] Performed By: #### 2 432-8, ####CERVANTES LABORATORYCLIA [id number] [address] [place] [facility] Sodium [Moles/Vol] 138 mmol/L Normal 136-144 [facility] Comment on above: Order Comment: Speci men Type: BLOOD SPECIMENOrdering Facility: [facility] Address: [address] [place] [address] Performed By: #### 2 432-8, ####CERVANTES LABORATORYCLIA [id number] [address] [place] [facility] Urea nitrogen [Mass/Vol] 11 mg/dL Normal 7-21 [facility] Comment on above: Order Comment: Speci men Type: BLOOD SPECIMENOrdering Facility: [facility] Address: [address] [place] [address] Performed By: #### 2 4323-8, ####CERVANTES LABORATORYCLIA [id number] [place] [address] [place] Magnesium SerPl-mCncon 09-20 Magnesium [Mass/Vol] 1.9 mg/dL Normal 1.7-2.3 [facility] Comment on above: Order Comment: Speci men Type: BLOOD SPECIMENOrdering Facility: [facility] Address: [address] [place] [address] Performed By: #### 2 4323-8, ####CERVANTES LABORATORYCLIA [id number] [place] [address] [place] PT panel Coag (PPP)on 2024 INR Coag (PPP) [Relative time] 1.6 {INR} High 0.9-1.3 [facility] Comment on above: Order Comment: Suzanne garcia Type: BLOOD SPECIMENOrdering Facility: [facility] Address: [address] [place], [place] [address] Result Comment: Kaycee min K Antagonist (VKA) Therapeutic Range: INR 2 to 3 (Target INR of 2.5) Note: For patients treated with VKA drugs, such as warfarin, the [employer] 2012 Guideline recommends [...] Chest 2012, 141:7S-47S Roshni RA, et al. [facility] 2017, 70: 252-289 Performed By: #### 3 4528-0 ####[facility] LABORATORYCLIA [id number] [address] [place] PT Coag (PPP) [Time] 16.7 s High 9.7-13.0 [facility] Comment on above: Order Comment: Suzanne garcia Type: BLOOD SPECIMENOrdering Facility: [facility] Address: [address] [id number] Performed By: #### 3 4528-0 ####[facility]FFAL[facility] LABORATORYCLIA [id number] [address] [place] THERAPY NTon 09-20-2024 THERAPY NT HNO ID: [id number] Author: CHRISTIANO MAYEN OT/L Service: ? Author Type: Occupational Therapist Type: Therapy (PT/OT/Speech/Resp) Filed: 09/20/2024 11:14 Note Text: Summary: OT Evaluation Occupational Therapy Evaluation Summary SERVICE DATE: 09/20/2024 SERVICE TIME: 1031 to 1106 ROOM: PM-5D-4431-1 OT 6 Clicks Score: 14 DISCHARGE RECOMMENDATIONS [...] is struggling to ambulate. Patient admitted to [facility] with Dx: Decreased activities of daily living (ADL), Fall at home, initial encounter Relevant Past Medical History: DM, edema, depression,asthma, obesity, irsutism, venous insufficiency, oseteomyeliitis of foot, SLE, cerebral palsy, pulmonary embolism, hypothyroidism, insomnai, CAD, migraines, HTN, hysterectomy HOME LIVING Patient Lives With: Facility Care, Spouse, Other: See Comment Comments: [facility] with spouse Assistance Available: 24-Hour Comments: [facility] staff for toileting and shower Entry To Home: No Stairs Number Of Stairs To Bed/Bath: 0 Tub/Shower Type: Accessible WIS with shower chair + grab bars, has assistance/supervision for transfers Laundry: [facility] staff completes Equipment Owned: Lift Chair, Commode- [...] feet TREATMENT INTERVENTIONS Evaluation, Self Shelter Management (01214) Timed Code Treatment (minutes): 17 Skilled Treatment Time (minutes): 32 TRAINING AND EDUCATION PROVIDED Activity Adaptation/Compensatory Strategies, Adaptive Equipment/DME, Bed Mobility, Benefits of In-Hospital Mobility, Cognitive Skills, Command Following, Coping Skills/Resiliency, Discharge Planning, Expected Functional Level, Functional Mobility Involving ADLs, Insight into Deficits, Lower Extremity Dressing, Memory/Attention, Orientation, Positioning, Pain Management, Safety/Judgment, Role of Occupational Therapy, Sitting Balance to Improve [place] with ADLs/Self-Care, Standing Balance to Improve [place] with ADLs/Self-Care, Toileting , Transfer - Sit to Stand THERAPEUTIC SKILLS USED Activity Dosing, Cues for Sequencing/Proper Technique for Activity, Cuing Tactile, Cuing Verbal, Cuing Visual, Facilitation of Joint Range of Motion, Movement Facilitation, Muscle Activation Facilitation, Physical Assist, Teach-Back for Ed (more content not included)... Normal [facility] CBC panel Auto (Bld)on 09-19 Erythrocyte distribution width (RBC) [Ratio] 13.2 % Normal 11.5-15.0 [facility] Comment on above: Order Comment: Speci men Type: BLOOD SPECIMENOrdering Facility: [facility] Address: [address] [place] [address] Performed By: #### 5 8410-2 ####CERVANTES LABORATORYCLIA [id number] [address] Hematocrit (Bld) [Volume fraction] 33.3 % Low 36.0-46.0 [facility] Comment on above: Order Comment: Speci men Type: BLOOD SPECIMENOrdering Facility: [facility] Address: [address] [place] [address] Performed By: #### 5 8410-2 ####CERVANTES LABORATORYCLIA [id number] [address] OF [facility] Hemoglobin (Bld) [Mass/Vol] 11.0 g/dL Low 11.5-15.5 [facility] Comment on above: Order Comment: Speci men Type: BLOOD SPECIMENOrdering Facility: [facility] Address: [address] [place] [address] Performed By: #### 5 8410-2 ####CERVANTES LABORATORYCLIA [id number] [address] [place] [facility] MCH (RBC) [Entitic mass] 30.4 pg Normal 26.0-34.0 [facility] Comment on above: Order Comment: Speci men Type: BLOOD SPECIMENOrdering Facility: [facility] Address: [address] [place] [address] Performed By: #### 5 8410-2 ####CERVANTES LABORATORYCLIA [id number] [address] MCHC (RBC) [Mass/Vol] 33.0 g/dL Normal 30.5-36.0 [facility] Comment on above: Order Comment: Speci men Type: BLOOD SPECIMENOrdering Facility: [facility] Address: [address] [place] [address] Performed By: #### 5 8410-2 ####CERVANTES LABORATORYCLIA [id number] [address] [place] MCV (RBC) [Entitic vol] 92.0 fL Normal 80.0-100.0 [facility] Comment on above: Order Comment: Speci men Type: BLOOD SPECIMENOrdering Facility: [facility] Address: [address] [place] [address] Performed By: #### 5 8410-2 ####CERVANTES LABORATORYCLIA [id number] [address] [place] Nucleated RBC (Bld) [#/Vol] 10*3/uL Normal <0.01 [facility] Comment on above: Order Comment: Speci men Type: BLOOD SPECIMENOrdering Facility: [facility] Address: [address] [place] [address] Performed By: #### 5 8410-2 ####CERVANTES LABORATORYCLIA [id number] [address] [place] Platelet mean volume (Bld) [Entitic vol] 10.2 fL Normal 9.0-12.7 [facility] Comment on above: Order Comment: Speci men Type: BLOOD SPECIMENOrdering Facility: [facility] Address: [address] [place] [address] Performed By: #### 5 8410-2 ####CERVANTES LABORATORYCLIA [id number] [address] [place] [facility] Platelets (Bld) [#/Vol] 158 10*3/uL Normal 150-400 [facility] Comment on above: Order Comment: Speci men Type: BLOOD SPECIMENOrdering Facility: [facility] Address: [address] [place] [address] Performed By: #### 5 8410-2 ####CERVANTES LABORATORYCLIA [id number] [address] [place] RBC (Bld) [#/Vol] 3.62 10*6/uL Low 3.90-5.20 [facility] Comment on above: Order Comment: Speci men Type: BLOOD SPECIMENOrdering Facility: [facility] Address: [address] [place] [address] Performed By: #### 5 8410-2 ####CERVANTES LABORATORYCLIA [id number] [address] OF [facility] WBC (Bld) [#/Vol] 7.29 10*3/uL Normal 3.70-11.00 [facility] Comment on above: Order Comment: Speci men Type: BLOOD SPECIMENOrdering Facility: [facility] Address: [address] [place] [address] Performed By: #### 5 8410-2 ####CERVANTES LABORATORYCLIA [id number] [address] Comprehensive metabolic 2000 panelon 09-19-2024 Albumin [Mass/Vol] 2.7 g/dL Low 3.9-4.9 [facility] Comment on above: Order Comment: Speci men Type: BLOOD SPECIMENOrdering Facility: [facility] Address: [address] [place] [address] Performed By: #### 2 4323-8, ####CERVANTES LABORATORYCLIA [id number] [address] STATES OF [facility] ALP [Catalytic activity/Vol] 36 U/L Normal 34-123 [facility] Comment on above: Order Comment: Speci men Type: BLOOD SPECIMENOrdering Facility: [facility] Address: [address] [place] [address] Performed By: #### 2 4323-8, ####CERVANTES LABORATORYCLIA [id number] [address] ALT [Catalytic activity/Vol] 6 U/L Low 7-38 [facility] Comment on above: Order Comment: Speci men Type: BLOOD SPECIMENOrdering Facility: [facility] Address: [address] [place] [address] Performed By: #### 2 4323-8, ####CERVANTES LABORATORYCLIA [id number] [place] [address] [place] Anion gap [Moles/Vol] 13 mmol/L Normal 8-15 [facility] Comment on above: Order Comment: Speci men Type: BLOOD SPECIMENOrdering Facility: [facility] Address: [address] [place] [address] Performed By: #### 2 4323-8, ####CERVANTES LABORATORYCLIA [id number] [place] [address] [place] AST [Catalytic activity/Vol] 19 U/L Normal 13-35 [facility] Comment on above: Order Comment: Speci men Type: BLOOD SPECIMENOrdering Facility: [facility] Address: [address] [place] [address] Performed By: #### 2 4323-8, ####CERVANTES LABORATORYCLIA [id number] [place] [address] [place] Bilirubin [Mass/Vol] 0.5 mg/dL Normal 0.2-1.3 [facility] Comment on above: Order Comment: Speci men Type: BLOOD SPECIMENOrdering Facility: [facility] Address: [address] [facility] [place] [address] Performed By: #### 2 [id number], ####[facility] LABORATORYCLIA [id number] [place] [address] [place] Calcium [Mass/Vol] 8.6 mg/dL Normal 8.5-10.2 [facility] Comment on above: Order Comment: Speci men Type: BLOOD SPECIMENOrdering Facility: [facility] Address: [address] [place] [address] Performed By: #### 2 4323-8, ####CERV[facility] LABORATORYCLIA [id number] [place] [address] [place] Chloride [Moles/Vol] 103 mmol/L Normal 98-107 [facility] Comment on above: Order Comment: Speci men Type: BLOOD SPECIMENOrdering Facility: [facility] Address: [address] [place] [address] Performed By: #### 2 4323-8, ####CERVANTES LABORATORYCLIA [id number] [place] [address] [place] CO2 [Moles/Vol] 24 mmol/L Normal 22-30 [facility] Comment on above: Order Comment: Suzanne garcia Type: BLOOD SPECIMENOrdering Facility: [facility] Address: [address] [place] [address] Performed By: #### 2 4328, ####CERVANTES LABORATORYCLIA [id number] [address] [place] Creatinine [Mass/Vol] 0.76 mg/dL Normal 0.58-0.96 [facility] Comment on above: Order Comment: Suzanne garcia Type: BLOOD SPECIMENOrdering Facility: [facility] Address: [address] [place] [address] Performed By: #### 2 4328, ####CERVANTES LABORATORYCLIA [id number] [address] Creatinine and Glomerular filtration rate.predicted panel (S/P/Bld) 83 mL/min/1.73m??? Normal >=60 [facility] Comment on above: Order Comment: Suzanne garcia Type: BLOOD SPECIMENOrdering Facility: [facility] Address: [address] [place] [address] Result Comment: Winifred mated Glomerular Filtration Rate [...] Performed By: #### 2 4323-8, ####CERVANTES LABORATORYCLIA [id number] [place] [id number] [place] Glucose [Mass/Vol] 106 mg/dL High 74-99 [facility] Comment on above: Order Comment: Suzanne garcia Type: BLOOD SPECIMENOrdering Facility: [facility] Address: [address] [place] [address] Result Comment: The [place] Diabetes Association (ADA) provides guidance for cutoff [...] Standards of Medical Care in Diabetes 2016, [place] [employer]. Diabetes Care. 2016.39(Suppl 1). Performed By: #### 2 4323-01, ####CERVANTES LABORATORYCLIA [id number] [place] [address] [place] Potassium [Moles/Vol] 4.7 mmol/L Normal 3.7-5.1 [facility] Comment on above: Order Comment: Speci men Type: BLOOD SPECIMENOrdering Facility: [facility] Address: [address] [place] [address] Performed By: #### 2 4323-01, ####CERVANTES LABORATORYCLIA [id number] [place] [address] [place] Protein [Mass/Vol] 5.3 g/dL Low 6.3-8.0 [facility] Comment on above: Order Comment: Naeemi men Type: BLOOD SPECIMENOrdering Facility: [facility] Address: [address] [place] [address] Performed By: #### 2 4323-01, ####CERVANTES LABORATORYCLIA [id number] [place] [address] [place] Sodium [Moles/Vol] 140 mmol/L Normal 136-144 [facility] Comment on above: Order Comment: Suzanne men Type: BLOOD SPECIMENOrdering Facility: [facility] Address: [address] [place] [id number] Performed By: #### 2 4323-01, ####CERVANTES LABORATORYCLIA [id number] [place] [id number] [place] Urea nitrogen [Mass/Vol] 10 mg/dL Normal 7-21 [facility] Comment on above: Order Comment: Speci men Type: BLOOD SPECIMENOrdering Facility: [facility] Address: [address] [place] [address] Performed By: #### 2 4323-8, 01651-0 ####[facility] LABORATORYCLIA [id number] [place] [id number] [place] HISTORY PHYSICALon HISTORY PHYSICAL HNO ID: [id number] Author: ARNOL LIN PA-C Service: Hospital Medicine Author Type: Physician Tucking Machine Operator Type: H&P Filed: 09/19/2024 01:01 Note [...] Casey MD, MD NIGHT AND WEEKEND COVERAGE: [place] COVERAGE: Days: [phone], please page attending physician. Nights: [phone], please page [place] [facility] Night coverage pager [phone]. Subjective CHIEF COMPLAINT: Fall, left knee pain [...] changes, peripheral edema, paresthesia or focal weaknesses. [place] ED Course: HDS, afebrile. Labs unremarkable. Imaging [...] daily. HYDROcodone-loyda (more content not included)... Normal [facility] Magnesium SerPl-mCncon 09-19 Magnesium [Mass/Vol] 1.8 mg/dL Normal 1.7-2.3 [facility] Comment on above: Order Comment: Speci men Type: BLOOD SPECIMENOrdering Facility: [facility] Address: [address] [place] [address] Performed By: #### 2 4323-8, 45966-0 ####[facility] LABORATORYCLIA [id number] [place] [address] [facility] NUTRITIONon 09-19-2024 NUTRITION HNO ID: [id number] Author: DEVYN KAHN RD Service: Nutrition Therapy [...] Greater than 75% estimated energy needs (Drinks Brunswick Instant Breakfast and either Premier or Melton [...] to trial Ensure Max. Pt to order Brunswick Instant Breakfast. Diet Orders (From admission, onward) [...] Drain Duration External Collection Device 09/18/24 2332 [facility] <1 day MNT Billing: $ Initial Assessment: 1-15 minutes SIGNATURE: Devyn Kahn RD PATIENT NAME: Randolph Hunter DATE: September 19, 2024 TIME: 1:12 PM Normal [facility] PT panel Coag (PPP)on 2024 INR Coag (PPP) [Relative time] 1.7 {INR} High 0.9-1.3 [facility] Comment on above: Order Comment: Speci men Type: BLOOD SPECIMENOrdering Facility: [facility] Address: [address] [place] [address] Result Comment: Kaycee min K Antagonist (VKA) Therapeutic Range: INR 2 to 3 (Target INR of 2.5) Note: For patients treated with VKA drugs, such as warfarin, the [place] [employer] 2012 Guideline recommends [...] Chest 2012, 141:7S-47S Roshni RA, et al. [facility] 2017, 70: 252-289 Performed By: #### 3 4528-0 ####[facility] LABORATORYCLIA [id number] [address] [place] PT Coag (PPP) [Time] 17.9 s High 9.7-13.0 [facility] Comment on above: Order Comment: Speci men Type: BLOOD SPECIMENOrdering Facility: [facility] Address: [address] [place] [address] Performed By: #### 3 4528-0 ####[facility] LABORATORYCLIA [id number] [address] OF [facility] THERAPY NTon 09-19-2024 THERAPY NT HNO ID: [id number] Author: ESTELLE CAGE PT Service: Physical Therapy Author Type: Physical Therapist Type: Therapy (PT/OT/Speech/Resp) Filed: 09/19/2024 17:41 Note Text: Summary: PT evaluation Physical Therapy Evaluation Summary SERVICE DATE: 09/19/2024 SERVICE TIME: 1545 to 1629 ROOM: [id number] PT 6 Clicks Score: 12 DISCHARGE RECOMMENDATIONS [...] time. Leg Injury . Patient admitted to [facility] with Dx: Decreased activities of daily living (ADL), Fall at home, initial encounter Relevant Past Medical History: DM, edema, depression,asthma, obesity, irsutism, venous insufficiency, oseteomyeliitis of foot, SLE, cerebral palsy, pulmonary embolism, hypothyroidism, insomnai, CAD, migraines, HTN, hysterectomy HOME LIVING Patient Lives With: Spouse Assistance Available: 24-Hour, Other: See Comment Comments: [facility] staff for toileting and shower Entry To [...] Reduced mobility-other TREATMENT INTERVENTIONS Evaluation, Therapeutic Activity (91254) Timed Code Treatment (minutes): 25 Skilled Treatment Time (minutes): 44 $ Evaluation-Low (13613) Billed Units: 1 unit Therapeutic Activity (66009) Treatment Minutes: 25 $ Therapeutic Activity (79420) Billed Units: 2 units Range of Motion: [...] Sit to Supi (more content not included)... Normal [facility] THERAPY NT HNO ID: [id number] Author: ESTELLE CAGE PT Service: Physical Therapy Author Type: Physical Therapist Type: Therapy (PT/OT/Speech/Resp) Filed: 09/19/2024 11:07 Note Text: Summary: PT missed visit PHYSICAL THERAPY MISSED VISIT SERVICE DATE: 09/19/2024 SERVICE TIME: 1105 ROOM: [place] [address] Patient not seen due to Patient Not Available. Discussed patient with RN and patient in the process of transferring to . Will approach as patient is available/appropriate. SIGNATURE: Estelle Cage PT PATIENT NAME: Randolph Hunter DATE: September 19, 2024 TIME: 11:06 AM Normal [facility] URINALYSIS, REFLEX MICROSCOP ICon 09-19-2024 Bilirubin Ql (U) Negative Normal Negative [facility] Comment on above: Order Comment: Speci men Type: URINE SPECIMENOrdering Facility: [facility] Address: [address] [place] [address] Performed By: #### L [id number] ####[facility] LABORATORYCLIA [id number] [address] Clarity (Unsp spec) Clear Normal Clear [facility] Comment on above: Order Comment: Speci men Type: URINE SPECIMENOrdering Facility: [facility] Address: [address] [place] [address] Performed By: #### L [id number] ####CERVANTES LABORATORYCLIA [id number] [address] Color (U) Yellow Normal Yellow [facility] Comment on above: Order Comment: Speci men Type: URINE SPECIMENOrdering Facility: [facility] Address: [address] [place] [address] Performed By: #### L [id number] ####CERVANTES LABORATORYCLIA [id number] [address] [place] Glucose Test strip (U) [Mass/Vol] Negative Normal Negative [facility] Comment on above: Order Comment: Speci men Type: URINE SPECIMENOrdering Facility: [facility] Address: [address] [place] [address] Performed By: #### L [id number] ####CERVANTES LABORATORYCLIA [id number] [address] Hemoglobin Ql (U) Negative Normal Negative [facility] Comment on above: Order Comment: Speci men Type: URINE SPECIMENOrdering Facility: [facility] Address: [address] [place] [address] Performed By: #### L [id number] ####CERV[facility] LABORATORYCLIA [id number] [address] [place] Ketones Ql (U) Negative Normal Negative [facility] Comment on above: Order Comment: Speci men Type: URINE SPECIMENOrdering Facility: [facility] Address: [address] [place] [address] Performed By: #### L [id number] ####CERVANTES LABORATORYCLIA [id number] [address] STATES [facility] Leukocyte esterase Test strip Ql (U) Negative Normal Negative [facility] Comment on above: Order Comment: Speci men Type: URINE SPECIMENOrdering Facility: [facility] Address: [address] [place] [address] Performed By: #### L [id number] ####CERVANTES LABORATORYCLIA [id number] [address] Nitrite Ql (U) Negative Normal Negative [facility] Comment on above: Order Comment: Speci men Type: URINE SPECIMENOrdering Facility: [facility] Address: [address] [place] [address] Performed By: #### L [id number] ####CERV[facility] LABORATORYCLIA [id number] [address] pH (U) 7.0 [pH] Normal 5.0-8.0 [facility] Comment on above: Order Comment: Speci men Type: URINE SPECIMENOrdering Facility: [facility] Address: [address] [place] [address] Performed By: #### L [id number] ####CERVANTES LABORATORYCLIA [id number] [place] [address] [place] Protein (U) [Mass/Vol] Negative Normal Negative [facility] Comment on above: Order Comment: Speci men Type: URINE SPECIMENOrdering Facility: [facility] Address: [address] [place] [address] Performed By: #### L [id number] ####CERV[facility] LABORATORYCLIA [id number] [address] Specific gravity (U) [Rel density] 1.010 Normal 1.005-1.03 0 [facility] Comment on above: Order Comment: Speci men Type: URINE SPECIMENOrdering Facility: [facility] Address: [address] [place] [address] Performed By: #### L [id number] ####CERVANTES LABORATORYCLIA [id number] [address] [place] Urobilinogen Ql (U) 0.2 EU/dL Normal 0.2-1.0 EU/dL [facility] Comment on above: Order Comment: Speci men Type: URINE SPECIMENOrdering Facility: [facility] Address: [address] [place] [address] Performed By: #### L [id number] ####CERVANTES LABORATORYCLIA [id number] [address] [place] ALLIED HEALTHon 09-18-2024 ALLIED HEALTH HNO ID: [id number] Author: OSVALDO BRUCE RT(R) Service: Radiology Author Type: Glass Decorator Type: Allied Health Filed: 09/18/2024 23:10 Note [...] PATIENT PRESENTS WITH AN IMPLANTABLE OR ATTACHED ADMINISTRATIVE SERVICES ASSISTANT: No RADIOLOGY DEPARTMENT: General X-ray: Exam(s) Completed: Pelvis X-Ray: Pelvis with Hip Left Lower Extremity X-Ray(s): Ankle, Left PERIPHERAL IV DATA: Not applicable SIGNED BY: RT Lissett(R) September 18, 2024 11:09 PM [facility] HNO ID: [id number] Author: MONTSERRAT CUEVAS RT(R) Service: Radiology Author [...] PATIENT PRESENTS WITH AN IMPLANTABLE OR ATTACHED ADMINISTRATIVE SERVICES ASSISTANT: No RADIOLOGY DEPARTMENT: General X-ray: Exam(s) Completed: Lower Extremity X-Ray(s): Knee, AP / LAT Left PERIPHERAL IV DATA: Not applicable SIGNED BY: RT Geeta(R) September 18, 2024 10:31 AM [facility] CBC W Auto Differential pane l (Bld)on 09-18-2024 Basophils (Bld) [#/Vol] 10*3/uL Normal <0.11 [facility] Comment on above: Order Comment: Speci men Type: BLOOD SPECIMENOrdering Facility: [facility] Address: [address] [place] [address] Performed By: #### 5 7021-8 ####[facility] LABORATORYCLIA [id number] [address] [place] Basophils/100 WBC (Bld) 0.3 % Normal [facility] Comment on above: Order Comment: Speci men Type: BLOOD SPECIMENOrdering Facility: [facility] Address: [address] [place] [address] Performed By: #### 5 7021-8 ####CERVANTES LABORATORYCLIA [id number] [place] [address] [place] Differential cell count method Nom (Bld) Auto Normal [facility] Comment on above: Order Comment: Speci men Type: BLOOD SPECIMENOrdering Facility: [facility] Address: [address] [place] [address] Performed By: #### 5 7021-8 ####CERVANTES LABORATORYCLIA [id number] [place] [address] [place] Eosinophils (Bld) [#/Vol] 0.16 10*3/uL Normal <0.46 [facility] Comment on above: Order Comment: Speci men Type: BLOOD SPECIMENOrdering Facility: [facility] Address: [address] [place] [address] Performed By: #### 5 7021-8 ####CERVANTES LABORATORYCLIA [id number] [address] [place] Eosinophils/100 WBC (Bld) 2.1 % Normal [facility] Comment on above: Order Comment: Speci men Type: BLOOD SPECIMENOrdering Facility: [facility] Address: [address] [place] [address] Performed By: #### 5 7021-8 ####CERVANTES LABORATORYCLIA [id number] [place] [address] [place] Erythrocyte distribution width (RBC) [Ratio] 13.3 % Normal 11.5-15.0 [facility] Comment on above: Order Comment: Speci men Type: BLOOD SPECIMENOrdering Facility: [facility] Address: [address] [place] [address] Performed By: #### 5 7021-8 ####CERVANTES LABORATORYCLIA [id number] [place] [address] [place] Hematocrit (Bld) [Volume fraction] 37.2 % Normal 36.0-46.0 [facility] Comment on above: Order Comment: Speci men Type: BLOOD SPECIMENOrdering Facility: [facility] Address: [facility] [place] [address] Performed By: #### 5 7021-8 ####CERVANTES LABORATORYCLIA [id number] [place] [address] [place] Hemoglobin (Bld) [Mass/Vol] 12.6 g/dL Normal 11.5-15.5 [facility] Comment on above: Order Comment: Speci men Type: BLOOD SPECIMENOrdering Facility: [facility] Address: [address] [place] [address] Performed By: #### 5 7021-8 ####CERVANTES LABORATORYCLIA [id number] [address] [place] Immature granulocytes (Bld) [#/Vol] 10*3/uL Normal <0.10 [facility] Comment on above: Order Comment: Speci men Type: BLOOD SPECIMENOrdering Facility: [facility] Address: [address] [place] [address] Performed By: #### 5 7021-8 ####CERVANTES LABORATORYCLIA [id number] [address] Immature granulocytes/100 WBC (Bld) 0.3 % Normal [facility] Comment on above: Order Comment: Speci men Type: BLOOD SPECIMENOrdering Facility: [facility] Address: [address] [place] [address] Performed By: #### 5 7021-8 ####CERVANTES LABORATORYCLIA [id number] [place] [address] [place] Lymphocytes (Bld) [#/Vol] 1.71 10*3/uL Normal 1.00-4.00 [facility] Comment on above: Order Comment: Speci men Type: BLOOD SPECIMENOrdering Facility: [facility] Address: [address] [place] [address] Performed By: #### 5 7021-8 ####CERVANTES LABORATORYCLIA [id number] [address] [place] Lymphocytes/100 WBC (Bld) 22.4 % Normal [facility] Comment on above: Order Comment: Speci men Type: BLOOD SPECIMENOrdering Facility: [facility] Address: [address] [place] [address] Performed By: #### 5 7021-8 ####CERVANTES LABORATORYCLIA [id number] [place] [address] [place] MCH (RBC) [Entitic mass] 30.8 pg Normal 26.0-34.0 [facility] Comment on above: Order Comment: Speci men Type: BLOOD SPECIMENOrdering Facility: [facility] Address: [address] [place] [address] Performed By: #### 5 7021-8 ####CERVANTES LABORATORYCLIA [id number] [address] [place] MCHC (RBC) [Mass/Vol] 33.9 g/dL Normal 30.5-36.0 [facility] Comment on above: Order Comment: Speci men Type: BLOOD SPECIMENOrdering Facility: [facility] Address: [address] [place] [address] Performed By: #### 5 7021-8 ####CERVANTES LABORATORYCLIA [id number] [address] STATES [facility] MCV (RBC) [Entitic vol] 91.0 fL Normal 80.0-100.0 [facility] Comment on above: Order Comment: Speci men Type: BLOOD SPECIMENOrdering Facility: [facility] Address: [address] [place] [address] Performed By: #### 5 7021-8 ####CERVANTES LABORATORYCLIA [id number] [address] [place] Monocytes (Bld) [#/Vol] 0.54 10*3/uL Normal <0.87 [facility] Comment on above: Order Comment: Speci men Type: BLOOD SPECIMENOrdering Facility: [facility] Address: [address] [place] [address] Performed By: #### 5 7021-8 ####CERVANTES LABORATORYCLIA [id number] [place] [address] [place] Monocytes/100 WBC (Bld) 7.1 % Normal [facility] Comment on above: Order Comment: Speci men Type: BLOOD SPECIMENOrdering Facility: [facility] Address: [address] [place] [address] Performed By: #### 5 7021-8 ####CERVANTES LABORATORYCLIA [id number] [place] [address] [place] Neutrophils (Bld) [#/Vol] 5.18 10*3/uL Normal 1.45-7.50 [facility] Comment on above: Order Comment: Speci men Type: BLOOD SPECIMENOrdering Facility: [facility] Address: [address] [place] [address] Performed By: #### 5 7021-8 ####CERVANTES LABORATORYCLIA [id number] [address] [place] Neutrophils/100 WBC (Bld) 67.8 % Normal [facility] Comment on above: Order Comment: Speci men Type: BLOOD SPECIMENOrdering Facility: [facility] Address: [address] [place] [address] Performed By: #### 5 7021-8 ####CERVANTES LABORATORYCLIA [id number] [place] [address] [place] Nucleated RBC (Bld) [#/Vol] 10*3/uL Normal <0.01 [facility] Comment on above: Order Comment: Speci men Type: BLOOD SPECIMENOrdering Facility: [facility] Address: [address] [place] [address] Performed By: #### 5 7021-8 ####CERVANTES LABORATORYCLIA [id number] [place] [address] [place] Nucleated RBC/100 WBC (Bld) [Ratio] 0.0 /100 WBC Normal [facility] Comment on above: Order Comment: Speci men Type: BLOOD SPECIMENOrdering Facility: [facility] Address: [address] [place] [address] Performed By: #### 5 7021-8 ####CERVANTES LABORATORYCLIA [id number] [place] [address] [place] Platelet mean volume (Bld) [Entitic vol] 10.0 fL Normal 9.0-12.7 [facility] Comment on above: Order Comment: Suzanne garcia Type: BLOOD SPECIMENOrdering Facility: [facility] Address: [address] [place] [address] Performed By: #### 5 7021-8 ####CERVANTES LABORATORYCLIA [id number] [place] [address] [place] Platelets (Bld) [#/Vol] 176 10*3/uL Normal 150-400 [facility] Comment on above: Order Comment: Suzanne garcia Type: BLOOD SPECIMENOrdering Facility: [facility] Address: [address] [place] [address] Performed By: #### 5 7021-8 ####CERVANTES LABORATORYCLIA [id number] [place] [address] [place] RBC (Bld) [#/Vol] 4.09 10*6/uL Normal 3.90-5.20 [facility] Comment on above: Order Comment: Suzanne garcia Type: BLOOD SPECIMENOrdering Facility: [facility] Address: [address] [place] [address] Performed By: #### 5 7021-8 ####CERVANTES LABORATORYCLIA [id number] [place] [address] [place] WBC (Bld) [#/Vol] 7.63 10*3/uL Normal 3.70-11.00 [facility] Comment on above: Order Comment: Suzanne garcia Type: BLOOD SPECIMENOrdering Facility: [facility] Address: [address] [place] [address] Performed By: #### 5 7021-8 ####CERVANTES LABORATORYCLIA [id number] [place] [id number] [facility] CT KNEE WO IVCON LTon 2024 CT KNEE WO IVCON LT * * *Final Report* * * DATE OF EXAM: Sep 18 2024 10:[facility] IV[facility] LT [...] Small joint effusion. * Tricompartmental degenerative changes. Lodging Facilities Attendant: CEM Transcribe Date/Time: Sep 18 2024 11:34P Dictated by : STEPHANE GRIMES MD This examination was interpreted and the report reviewed and electronically signed by: STEPHANE GRIMES MD on Sep 18 2024 11:37PM EST [id number] Normal [facility] Comprehensive metabolic 2000 panelon 09-18-2024 Albumin [Mass/Vol] 3.2 g/dL Low 3.9-4.9 [facility] Comment on above: Order Comment: Speci men Type: BLOOD SPECIMENOrdering Facility: [facility] Address: [address] [place] [address] Performed By: #### 2 4323-8 ####[facility] LABORATORYCLIA [id number] [address] STATES OF [facility] ALP [Catalytic activity/Vol] 42 U/L Normal 34-123 [facility] Comment on above: Order Comment: Speci men Type: BLOOD SPECIMENOrdering Facility: [facility] Address: [address] [place] [address] Performed By: #### 2 4323-8 ####[facility] LABORATORYCLIA [id number] [address] OF [facility] ALT [Catalytic activity/Vol] 8 U/L Normal 7-38 [facility] Comment on above: Order Comment: Speci men Type: BLOOD SPECIMENOrdering Facility: [facility] Address: [address] [place] [address] Performed By: #### 2 4323-8 ####CERVANTES LABORATORYCLIA [id number] [place] [address] [place] Anion gap [Moles/Vol] 10 mmol/L Normal 8-15 [facility] Comment on above: Order Comment: Speci men Type: BLOOD SPECIMENOrdering Facility: [facility] Address: [address] [place] [address] Performed By: #### 2 4323-8 ####CERVANTES LABORATORYCLIA [id number] [place] [address] [place] AST [Catalytic activity/Vol] 19 U/L Normal 13-35 [facility] Comment on above: Order Comment: Speci men Type: BLOOD SPECIMENOrdering Facility: [facility] Address: [address] [place] [address] Performed By: #### 2 4323-8 ####CERVANTES LABORATORYCLIA [id number] [place] [address] [place] Bilirubin [Mass/Vol] 0.5 mg/dL Normal 0.2-1.3 [facility] Comment on above: Order Comment: Speci men Type: BLOOD SPECIMENOrdering Facility: [facility] Address: [address] [place] [address] Performed By: #### 2 4323-8 ####CERVANTES LABORATORYCLIA [id number] [place] [address] [place] Calcium [Mass/Vol] 9.1 mg/dL Normal 8.5-10.2 [facility] Comment on above: Order Comment: Speci men Type: BLOOD SPECIMENOrdering Facility: [facility] Address: [address] [place] [address] Performed By: #### 2 4323-8 ####CERVANTES LABORATORYCLIA [id number] [place] [address] [place] Chloride [Moles/Vol] 98 mmol/L Normal 98-107 [facility] Comment on above: Order Comment: Speci men Type: BLOOD SPECIMENOrdering Facility: [facility] Address: [address] [place] [address] Performed By: #### 2 4323-8 ####CERVANTES LABORATORYCLIA [id number] [address] [place] CO2 [Moles/Vol] 28 mmol/L Normal 22-30 [facility] Comment on above: Order Comment: Speci men Type: BLOOD SPECIMENOrdering Facility: [facility] Address: [address] [place] [address] Performed By: #### 2 4323-8 ####CERVANTES LABORATORYCLIA [id number] [address] Creatinine [Mass/Vol] 0.80 mg/dL Normal 0.58-0.96 [facility] Comment on above: Order Comment: Naeemi men Type: BLOOD SPECIMENOrdering Facility: [facility] Address: [address] [place] [address] Performed By: #### 2 4323-8 ####CERVANTES LABORATORYCLIA [id number] [address] Creatinine and Glomerular filtration rate.predicted panel (S/P/Bld) 78 mL/min/1.73m??? Normal >=60 [facility] Comment on above: Order Comment: Suzanne garcia Type: BLOOD SPECIMENOrdering Facility: [facility] Address: [address] [place] [address] Result Comment: Winifred mated Glomerular Filtration Rate [...] Performed By: #### 2 4323-8 ####CERVANTES LABORATORYCLIA [id number] [address] STATES [facility] Glucose [Mass/Vol] 121 mg/dL High 74-99 [facility] Comment on above: Order Comment: Suzanne men Type: BLOOD SPECIMENOrdering Facility: [facility] Address: [address] [place] [address] Result Comment: The [place] Diabetes Association (ADA) provides guidance for cutoff [...] Standards of Medical Care in Diabetes 2016, [place] Diabetes Association. Diabetes Care. 2016.39(Suppl 1). Performed By: #### 2 4323-8 ####CERVANTES LABORATORYCLIA [id number] [place] [address] [place] Potassium [Moles/Vol] 4.3 mmol/L Normal 3.7-5.1 [facility] Comment on above: Order Comment: Speci men Type: BLOOD SPECIMENOrdering Facility: [facility] Address: [address] [place] [address] Performed By: #### 2 4323-8 ####CERVANTES LABORATORYCLIA [id number] [place] [address] [place] Protein [Mass/Vol] 6.4 g/dL Normal 6.3-8.0 [facility] Comment on above: Order Comment: Speci men Type: BLOOD SPECIMENOrdering Facility: [facility] Address: [address] [place] [address] Performed By: #### 2 4323-8 ####CERVANTES LABORATORYCLIA [id number] [place] [address] [place] Sodium [Moles/Vol] 136 mmol/L Normal 136-144 [facility] Comment on above: Order Comment: Speci men Type: BLOOD SPECIMENOrdering Facility: [facility] Address: [address] [place] [address] Performed By: #### 2 4323-8 ####CERVANTES LABORATORYCLIA [id number] [place] [address] [place] Urea nitrogen [Mass/Vol] 10 mg/dL Normal 7-21 [facility] Comment on above: Order Comment: Speci men Type: BLOOD SPECIMENOrdering Facility: [facility] Address: [address] [place] [address] Performed By: #### 2 4323-8 ####BUFFALO LABORATORYCLIA [id number] [place] [address] [facility] ED NOTEon 09-18-2024 ED NOTE HNO ID: [id number] Author: MONE KING, RN Service: ? Author Type: Registered Nurse Type: ED Notes Filed: 09/18/2024 22:14 Note Text: Pt report given to Zaria (RN) [facility] ED NOTE HNO ID: [id number] Author: MONE KING RN Service: ? Author Type: Registered Nurse Type: ED Notes Filed: 09/18/2024 22:15 Note Text: IV attempted by this RN. Medic requested to bedside for ultrasound. [facility] ED NOTE HNO ID: [id number] Author: LIANNE FERNANDEZ RN Service: ? Author Type: Registered Nurse Type: ED Notes Filed: 09/18/2024 20:22 Note Text: Bed: ED-15 Expected date: Expected time: Means of arrival: Comments: [facility] ED NOTE HNO ID: [id number] Author: LIANNE FERNANDEZ, NAWAF Service: ? Author Type: Registered Nurse Type: ED Notes Filed: 09/18/2024 13:36 Note Text: Discharge instructions reviewed with patient via teachback. Pt verbalizes understanding. Pt awake and alert, respirations regular and unlabored. No further questions for this RN. Report given to [facility] ED NOTE HNO ID: [id number] Author: ZARIA ZAPATA, NAWAF Service: ? Author Type: Registered Nurse Type: ED Notes Filed: 09/18/2024 10:15 Note Text: Bed: ED-01 Expected date: Expected time: Means of arrival: [facility] Comments: [facility] ED PROV NOTEon 09-18-2024 ED PROV NOTE HNO ID: [id number] Author: KRISTI POND DO Service: Emergency Medicine [...] 1997 Hysterectomy, BSO TRANSCATH STENT ADDN VESSEL,PERCUT 2005 [...] Status Change Penicillins Hives Dioxicillin Promethazine Intolerance Ztjylcy-Tqb-Rts Red* Myalgia Cheese Diarrhea, GI Upset Parmesan cheese and solomon islander cheese, per patient Review of Systems Constitutional: [...] Left lower (more content not included)... Normal [facility] ED PROV NOTE HNO ID: [id number] Author: CLINTON GRAJEDA PA-C Service: ? Author Type: Physician Tucking Machine Operator Type: ED Provider Notes Filed: 09/18/2024 [...] Status Change Penicillins Hives Dioxicillin Promethazine Unknown Hvrmoub-Mfu-Tuj Red* Myalgia Cheese Diarrhea, GI Upset Parmesan cheese and solomon islander cheese, per patient Review of Systems Constitutional: [...] prior sen (more content not included)... Normal [facility] PT panel Coag (PPP)on 2024 INR Coag (PPP) [Relative time] 2.3 {INR} High 0.9-1.3 [facility] Comment on above: Order Comment: Suzanne garcia Type: BLOOD SPECIMENOrdering Facility: [facility] Address: [address] [place] [id number] Result Comment: Kaycee min K Antagonist (VKA) Therapeutic Range: INR 2 to 3 (Target INR of 2.5) Note: For patients treated with VKA drugs, such as warfarin, the [place] College of Chest Physicians 2012 Guideline recommends [...] Chest 2012, 141:7S-47S Roshni RA, et al. [facility] 2017, 70: 252-289 Performed By: #### 3 4528-0 ####BUFFALO LABORATORYCLIA [id number] [place] [id number] [place] PT Coag (PPP) [Time] 23.8 s High 9.7-13.0 [facility] Comment on above: Order Comment: Suzanne garcia Type: BLOOD SPECIMENOrdering Facility: [facility] Address: [address] [place] [address] Performed By: #### 3 4528-0 ####BUFFALO LABORATORYCLIA [id number] [place] [id number] [place] XR ANKLE 3V AP/LAT/OBL [...] tissue swelling of the left lower extremity. Lodging Facilities Attendant: [facility] Transcribe Date/Time: Sep 18 2024 11:41P Dictated by : STEPHANE GRIMES MD This examination was interpreted and the report reviewed and electronically signed by: STEPHANE GRIMES MD on Sep 18 2024 11:44PM EST [id number] [facility] XR HIP 3V PELV+ AP/LAT LTon 09-18-2024 [...] tissue swelling of the left lower extremity. Lodging Facilities Attendant: [facility] Transcribe Date/Time: Sep 18 2024 11:41P Dictated by : STEPHANE GRIMES MD This examination was interpreted and the report reviewed and electronically signed by: STEPHANE GRIMES MD on Sep 18 2024 11:44PM EST [id number] [facility] XR KNEE 4V AP/LAT/OBLS LTon 09-18-2024 XR [...] effusion. Vascular calcifications. IMPRESSION: No acute abnormality Lodging Facilities Attendant: [facility] Transcribe Date/Time: Sep 18 2024 10:47A Dictated by : WILBERT WALKER MD This examination was interpreted and the report reviewed and electronically signed by: WILBERT WALKER MD on Sep 18 2024 10:48AM EST [id number] [facility] CNOVon 08-05-2024 CNOV Office Visit (PSYLWM ) RANDOLPH HUNTER ([id number]) 1950 F Date Time Provider Department 08/05/24 11:00 AM GILMER COTTON PSYLWM During your visit today, we recorded the following information about you: Gilmer Cotton, PhD 08/05/2024 12:29 PM Signed [facility] Progress Note Randolph Hunter 08/05/2024 [id number] PROVIDER: Gilmer Cotton, PhD CPT Code: Time: [...] directed once a month. blood sugar diagnostic (CasterStatsTOUCH VERIO TEST STRIPS) test strip Test blood [...] Psychiatric Medication Issues: see med record DIAGNOSIS: [place] I: Depress (more content not included)... Normal [facility] ED Nursing Noteon 07-10-2024 ED Nursing Note Pt resting quietly i n bed with blanket over face. Respirations even and non labored. No coughing noted at this time. Await transport by [facility]. Normal [facility] ED Nursing Note Dr. Jha at bedside. Normal [facility] ED Nursing Noteon 07-09-[address] Jha to bedside . Pt given water. Normal [facility] ED Provider Noteon ED Provider Note [...] TABLET Place under the tongue. NYSTATIN (MYCOSTATIN) 581427 UNIT/GM POWDER Apply topically 2 times daily. [...] Resource Strain: Low Risk (01/02/2020) Received from [facility] Overall Financial Resource Strain (CARDIA) Difficulty of Paying Living Expenses: Not very hard Food Insecurity: Food Insecurity Present (01/02/2020) Received from [facility] Hunger Vital Sign Worried About Running Out of Food in the Last Year: Sometimes true Ran Out of Food in the Last Year: Never true Transportation Needs: Unmet Transportation Needs (01/02/2020) Received from [facility] (more content not included)... Normal [facility] XR Chest Single viewon 07-09 1. No acute consolidation. Report Dictated on Electronically Signed By: Velasquez Nova MD Electronically Signed Date/Time: 07/09/2024 11:45 PM EST [facility] Patient Name: RANDOLPH HUNTER : [...] change again noted in the thoracic spine. [facility] Velasquez Nova MD - 07/09/2024 Patient [...] Electronically Signed Date/Time: 07/09/2024 11:45 PM EST [facility] [employer] Radiology Study observation (narrative) [employer] XR Chest Single viewOrdered By: Velasquez Nova on 07-09-2024 [email or web address] Work Phone: CNOVon 05-02-2024 CNOV Office Visit (PSYLWM ) RANDOLPH HUNTER ([id number]) 1950 F Date Time Provider Department 05/02/24 11:00 AM GILMER COTTON PSYLWM During your visit today, we recorded the following information about you: Gilmer Cotton, PhD 05/02/2024 12:11 PM Signed [facility] Progress Note Randolph Abiodun Johan 05/02/2024 [id number] PROVIDER: Gilmer Cotton, PhD CPT Code: Time: [...] directed once a month. blood sugar diagnostic (ClaritureUCH VERIO TEST STRIPS) test strip Test blood [...] Issues: No change from previous appointment DIAGNOSIS: [place] I: Depressive Disorder recurrent Morbidly Obese CP [place] II : Deferred [place] III : See medical history [place] IV: Health (more content not included)... 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 blood sugar diagnostic (CasterStatsTOUCH VERIO TEST STRIPS) test strip Test blood [...] this v (more content not included)... Normal [facility] PATINSon 02-10-2024 PATINS Ordered treatment co mpleted and patient is healed. Patient discharged without any issues. All questions answered. Call the clinic if your wound reopens or a new wound appears at [phone]. Edema/Swelling: Avoid standing for long periouds of [...] a day to promote wound healing Normal [facility] Progress Noteon 02-10-2024 Progress Note Assessments [...] Test Results/Process Orders 10 [] Staff telephones [facility], Nursing [facility] [place]/Clarify Orders 10 [] Routine Transfer to another [...] Level 5 (160 or more Points) Normal [facility] Progress Note Subjective Patient ID: Randolph [...] prn Pt agrees with plan . 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 verbal Consent given by: patient Risks discussed? procedural risks discussed Immediately prior to the procedure a time out was called and the performing provider verified the correct patient, procedure, equipment, field support specialist, and site/side marked as required. Debridement Details [...] Response to treatment: procedure was tolerated well [facility] PATINSon 01-27-2024 PATINS Follow-up Appointmen ts: Return Appointment in 1 week. Call [facility] at [phone], [facility] at [phone], or [facility] at [phone]. Edema/Swelling: Avoid standing for long periouds of [...] the wound and secure with tape. Normal [facility] No Panel Informationon 01-19 Isaac Chicas DO 01/20/2024 3:54 PM Debridement Wound/Incision 01/20/24 Pressure Injury Foot Left Performed by: Isaac Chicas DO Authorized by: Isaac Chicas DO Consent Consent obtained? verbal Consent given by: patient Risks discussed? procedural risks discussed Immediately prior to the procedure a time out was called and the performing provider verified the correct patient, procedure, equipment, field support specialist, and site/side marked as required. Debridement Details [...] Response to treatment: procedure was tolerated well [facility] PATINSon 01-20-2024 PATINS Follow-up Appointmen ts: Return Appointment in 1 week. Call [facility] at [phone], [facility] at [phone], or [facility]ound center at [phone]. Edema/Swelling: Avoid standing for long periouds of [...] the wound and secure with tape. Normal [facility] Progress Noteon 01-20-2024 Progress Note [facility] [address] [facility] [address] Loc: [phone] Wound Care Visit - New Patient Progress [...] ti,es a day, Disp: , Rfl: HYDROcodone-acetaminophen ([place]) 5-325 MG tablet, Take 1 tablet by [...] the tongue., Disp: , Rfl: nystatin (Mycostatin) 663397 UNIT/GM powder, Apply topically 2 times daily., [...] Consent given (more content not included)... Normal [facility] Progress Note Assessments Nursing Assessment/Reassessment Score [...] Test Results/Process Orders 10 [x] Staff telephones [facility], Nursing Homes/Clarify Orders 10 [] Routine [...] Level 5 (160 or more Points) Normal [facility] ED Nursing Noteon 12-16-2023 ED Nursing Note Patient wheeled out ED for transport to residence. discharge instructions sent to facility with patient. No further questions. Respirations even and non labored. No acute distress. A&O x4. Gifty Cornell RN 12/16/23 0015 Normal [facility] BASIC METABOLIC PANELon 11-21 Anion gap [Moles/Vol] 4 mmol/L Normal 3-13 [facility] Comment on above: Performed By: #### L AB149, LAB15 ####Brazing Machine Feeder: [place] ([id number])[facility])[address] [place] [address] Calcium [Mass/Vol] 8.7 mg/dL Normal 8.4-10.4 [facility] Comment on above: Performed By: #### L AB149, LAB15 ####Brazing Machine Feeder: P[place] ([id number])[facility] [employer] ([facility])[address] [place] [address] [place] Chloride [Moles/Vol] 99 mmol/L Normal 98-107 [facility] Comment on above: Performed By: #### L AB149, LAB15 ####Brazing Machine Feeder: [place] ([id number])[facility]ITALMary[facility] CHATTERJEE RITTMAN ([facility])[address] [place] [address] [place] CO2 [Moles/Vol] 32 mmol/L High 22-30 [facility] Comment on above: Performed By: #### L AB149, LAB15 ####Brazing Machine Feeder: [place] ([id number])[facility]ITALMaryellen CHATTERJEE RITTMAN ([facility])[address] [place] [address] Creatinine [Mass/Vol] 1.03 mg/dL Normal 0.52-1.04 [facility] Comment on above: Performed By: #### L AB149, LAB15 ####Brazing Machine Feeder: [place] ([id number])[facility]ITALMary[facility] ROSSTMAN (SWRL[facility])[address] [place] [address] GLOMERULAR FILTRATION RATE ML/MIN/1.73 SQ M.PREDICTED 57.9 mL/min/1.73m*2 Low >60.0 [facility] Comment on above: Result Comment: Calc ulation based on the Chronic Kidney Disease Epidemiology Collaboration (CKD-EPI) equation refit without adjustment for race Performed By: #### L AB149, LAB15 ####Brazing Machine Feeder: [place] ([id number])[facility]ITALMary[facility] ROSSTMAN (SWRL[facility])[address] [place] [address] [place] Glucose [Mass/Vol] 104 mg/dL High 70-100 [facility] Comment on above: Performed By: #### L AB149, LAB15 ####Brazing Machine Feeder: [place] ([id number])[facility]ITALMaryellen CHATTERJEE RITTMAN ([facility])[address] [place] [address] [place] Potassium [Moles/Vol] 4.5 mmol/L Normal 3.5-5.1 [facility] Comment on above: Performed By: #### L AB149, LAB15 ####Brazing Machine Feeder: [place] ([id number])[facility]ITAL[facility] ROSSTMAN (SWRLAB)[address] [place] [address] Sodium [Moles/Vol] 135 mmol/L Normal 135-145 [facility] Comment on above: Performed By: #### L AB149, LAB15 ####Brazing Machine Feeder: [place] ([id number])[facility]ITALMaryellen CHATTERJEE RITTMAN (SW[facility])[address] [place] [address] Urea nitrogen [Mass/Vol] 12 mg/dL Normal 7-17 [facility] Comment on above: Performed By: #### L AB149, LAB15 ####Brazing Machine Feeder: PING [place] ([id number])[facility]ITAL[facility] ROSSTMAN (SWRLAB)[address] [place] [address] BLOOD CULTUREon 12-15-2023 Bacteria identified Cx Nom (Bld) BLOOD CULTURE Reference No growth at 5 days ORDER COMMENTS: Blood Collection Site: Right Antecubital [ S = SUSCEPTIBLE R = RESISTANT I = INTERMEDIATE S-DD = Susceptible-dose dependent NS = Non-susceptible NO = No Interpretation ] Normal [facility] Comment on above: Performed By: #### L AB462 ####Brazing Machine Feeder: PING [place]END ([id number])[facility] ([facility])[address] [place] [address] Bacteria identified Cx Nom (Bld) BLOOD CULTURE Reference No growth at 5 days ORDER COMMENTS: Blood Collection Site: Left Antecubital [ S = SUSCEPTIBLE R = RESISTANT I = INTERMEDIATE S-DD = Susceptible-dose dependent NS = Non-susceptible NO = No Interpretation ] Normal [facility] Comment on above: Performed By: #### L AB462 ####Brazing Machine Feeder: PING [place]OWNSEND ([id number])[facility] ([facility])[address] [place] [address] Basic metabolic 1998 panelon 12-15-2023 Anion gap [Moles/Vol] 4 mmol/L 3 - 13 mmol/L [facility] Calcium [Mass/Vol] 8.7 mg/dL 8.4 - 10. 4 mg/dL [facility] Chloride [Moles/Vol] 99 mmol/L 98 - 107 mmol/L [facility] [employer] CO2 [Moles/Vol] 32 mmol/L High 22 - 30 mmol/L [facility] [employer] Creatinine [Mass/Vol] 1.03 mg/dL 0.52 - 1.04 mg/dL [facility] GFR/1.73 sq M.predicted MDRD (S/P/Bld) [Vol rate/Area] 57.9 mL/min/{1.73_m2} Low - PINF [facility] Comment on above: Calculation based on the Chronic Kidney Disease Epidemiology Collaboration (CKD-EPI) equation refit without adjustment for race Glucose [Mass/Vol] 104 mg/dL High 70 - 100 mg/dL [facility] [employer] Potassium [Moles/Vol] 4.5 mmol/L 3.5 - 5.1 mmol/L [facility] Sodium [Moles/Vol] 135 mmol/L 135 - 145 mmol/L [facility] [employer] Urea nitrogen [Mass/Vol] 12 mg/dL 7 - 17 mg/dL [facility] C-REACTIVE PROTEINon 024 CRP [Mass/Vol] 57.4 mg/L High <10.0 [facility] Comment on above: Performed By: #### L AB149, LAB15 ####Brazing Machine Feeder: PING [place]NSEND ([id number])[facility] ([facility])[address] [place] [address] CBC W Auto Differential pane l (Bld)on 12-15-2023 Basophils (Bld) [#/Vol] 0.0 10*3/uL 0.0 - 0.2 10*3/uL [facility] Basophils/100 WBC (Bld) 0.2 % 0.0 - 2.0 % [facility] Eosinophils (Bld) [#/Vol] 0.1 10*3/uL 0.0 - 0.5 10*3/uL [facility] [employer] Eosinophils/100 WBC (Bld) 0.7 % 0.0 - 6.0 % [facility] Erythrocyte distribution width (RBC) [Ratio] 12.6 % 11.5 - 15.0 % [facility] [employer] Hematocrit (Bld) [Volume fraction] 38.3 % 35.0 - 47.0 % [facility] Hemoglobin (Bld) [Mass/Vol] 13.1 g/dL 11.7 - 16.0 g/dL [facility] Immature granulocytes (Bld) [#/Vol] 0.0 10*3/uL NINF - 0.1 10*3/uL [facility] Immature granulocytes/100 WBC (Bld) 0.2 % 0.0 - 2.0 % [facility] Interpretation and review of laboratory results Abnormal [facility] IPF 3 [facility] Lymphocytes (Bld) [#/Vol] 0.9 10*3/uL Low 1.0 - 4.3 10*3/uL [facility] Lymphocytes/100 WBC (Bld) 11.2 % Low 15.0 - 45.0 % [facility] MCH (RBC) [Entitic mass] 31.2 pg 26.0 - 34.0 pg [facility] MCHC (RBC) [Mass/Vol] 34.2 % 30.5 - 36.0 % [facility] MCV (RBC) [Entitic vol] 91.2 fL 77.0 - 99.0 fL [facility] Monocytes (Bld) [#/Vol] 0.5 10*3/uL 0.0 - 0.9 10*3/uL [facility] Monocytes/100 WBC (Bld) 5.6 % 5.0 - 13.0 % [facility] Neutrophils (Bld) [#/Vol] 6.8 10*3/uL 1.8 - 7.5 10*3/uL [facility] Neutrophils/100 WBC (Bld) 82.1 % High 38.0 - 82.0 % [facility] Nucleated RBC/100 WBC (Bld) [Ratio] 0.0 % [facility] Platelet mean volume (Bld) [Entitic vol] 10.1 fL 9.0 - 12.7 fL [facility] Platelets (Bld) [#/Vol] 149 10*3/uL 140 - 440 10*3/uL [facility] RBC (Bld) [#/Vol] 4.20 10*6/uL 3.80 - 5.20 10*6/uL [facility] WBC (Bld) [#/Vol] 8.3 10*3/uL 3.6 - 10.7 10*3/uL [facility] CBC WITH AUTO DIFFERENTIALon 12-15-2023 Basophils (Bld) [#/Vol] 0.0 10*3/uL Normal 0.0-0.2 [facility] Comment on above: Performed By: #### L [id number], [id number] ####Brazing Machine Feeder: PING TOWNSEND ([id number])[facility] (SWRLAB)[address] [place] [address] Basophils/100 WBC (Bld) 0.2 % Normal 0.0-2.0 [facility] Comment on above: Performed By: #### Abiodun [id number], [id number] ####Brazing Machine Feeder: [place] ([id number])[facility] ERIC RITTMAN (SWRLAB)[address] [place] [address] Eosinophils (Bld) [#/Vol] 0.1 10*3/uL Normal 0.0-0.5 [facility] Comment on above: Performed By: #### Abiodun [id number], [id number] ####Brazing Machine Feeder: [place] ([id number])[facility] (SWRLAB)[address] [place] [address] [place] Eosinophils/100 WBC (Bld) 0.7 % Normal 0.0-6.0 [facility] Comment on above: Performed By: #### Abiodun [id number], [id number] ####Brazing Machine Feeder: [place] ([phone])[facility]ITALMaryellen LANGSTONERIC RITTMAN (SWRLAB)[address] [place] [address] Erythrocyte distribution width (RBC) [Ratio] 12.6 % Normal 11.5-15.0 [facility] Comment on above: Performed By: #### L [id number], [id number] ####Brazing Machine Feeder: [place] ([id number])[facility] ER[facility] (SWRLAB)[address] [place] [address] Hematocrit (Bld) [Volume fraction] 38.3 % Normal 35.0-47.0 [facility] Comment on above: Performed By: #### L [id number], [id number] ####Brazing Machine Feeder: PING [place] ([id number])FIONA CHATTERJEE RITTMAN (SWRLAB)[address] [place] [address] Hemoglobin (Bld) [Mass/Vol] 13.1 g/dL Normal 11.7-16.0 [facility] Comment on above: Performed By: #### L [id number], [id number] ####Brazing Machine Feeder: [place] ([id number])[facility]ITALMaryellen CHATTERJEE RITTMAN (SWRLAB)[address] [place] [address] IMMATURE GRANS % 0.2 % Normal 0.0-2.0 [facility] Comment on above: Performed By: #### Abiodun [id number], [id number] ####Brazing Machine Feeder: [place] ([id number])[facility]ITAL[facility] CHATTERJEE RITTMAN (SWRLAB)[address] [place] [address] IMMATURE GRANS ABSOLUTE 0.0 10*3/uL Normal <0.1 [facility] Comment on above: Performed By: #### Abiodun [id number], [id number] ####Brazing Machine Feeder: [place] ([id number])FIONA CHATTERJEE RITTMAN (SWRLAB)[address] [place] [address] [place] IPF 3 Normal [facility] Comment on above: Performed By: #### L [id number], [id number] ####Brazing Machine Feeder: IPNG TOWNSEND ([id number])[facility]ITAL[facility]ellen CHATTERJEE RITTMAN (SWRLAB)[address] [place] [address] [place] Lymphocytes (Bld) [#/Vol] 0.9 10*3/uL Low 1.0-4.3 [facility] Comment on above: Performed By: #### L [id number], [id number] ####Brazing Machine Feeder: PING [place]END ([id number])FIONA CHATTERJEE RITTMAN (SWRLAB)[address] [place] [address] [place] Lymphocytes/100 WBC (Bld) 11.2 % Low 15.0-45.0 [facility] Comment on above: Performed By: #### L [id number], [id number] ####Brazing Machine Feeder: PING [place]END ([id number])FIONA CHATTERJEE RITTMAN (SWRLAB)[address] [place] [address] MCH (RBC) [Entitic mass] 31.2 pg Normal 26.0-34.0 [facility] Comment on above: Performed By: #### L AB322, [id number] ####Brazing Machine Feeder: PING [place]END ([id number])[facility]ITALMaryellen CHATTERJEE RITTMAN (SWRLAB)[address] [place] [address] MCHC 34.2 % Normal 30.5-36.0 [facility] Comment on above: Performed By: #### Abiodun [id number], [id number] ####Brazing Machine Feeder: [place] ([id number])[facility]ITALMary[facility] CHATTERJEE RITTMAN (SWRLAB)[address] [place] [address] MCV (RBC) [Entitic vol] 91.2 fL Normal 77.0-99.0 [facility] Comment on above: Performed By: #### Abiodun [id number], [id number] ####Brazing Machine Feeder: PING [place]END ([id number])[facility]ITALMaryellen CHATTERJEE RITTMAN (SWRLAB)[address] [place] [address] Monocytes (Bld) [#/Vol] 0.5 10*3/uL Normal 0.0-0.9 [facility] Comment on above: Performed By: #### L AB322, [id number] ####Brazing Machine Feeder: PING [place]NSEND ([id number])[facility]ITALMaryellen CHATTERJEE RITTMAN (SWRLAB)[address] [place] [address] Monocytes/100 WBC (Bld) 5.6 % Normal 5.0-13.0 [facility] Comment on above: Performed By: #### L AB322, [id number] ####Brazing Machine Feeder: PING [place]END ([id number])[facility]ITALMaryellen CHATTERJEE RITTMAN (SWRLAB)[address] [place] [address] [place] NEUTROPHILS ABSOLUTE 6.8 10*3/uL Normal 1.8-7.5 [facility] Comment on above: Performed By: #### Abiodun AB322, [id number] ####Brazing Machine Feeder: PING [place]END ([id number])[facility]ITALMaryellen CHATTERJEE RITTMAN (SWRLAB)[address] [place] [address] [place] Neutrophils/100 WBC (Bld) 82.1 % High 38.0-82.0 [facility] Comment on above: Performed By: #### Abiodun [id number], [id number] ####Brazing Machine Feeder: PING [place]END ([id number])[facility]ITALMaryellen ROSSTMAN (SWRLAB)[address] [place] [address] NRBC 0.0 /100 WBCs Normal 0.0-2.0 [facility] Comment on above: Performed By: #### Abiodun [id number], [id number] ####Brazing Machine Feeder: PING [place]END ([id number])[facility]ITALMaryellen CHATTERJEE RITTMAN (SWRLAB)[address] [place] [address] [place] Platelet mean volume (Bld) [Entitic vol] 10.1 fL Normal 9.0-12.7 [facility] Comment on above: Performed By: #### Abiodun AB322, [id number] ####Brazing Machine Feeder: PING [place]NSEND ([id number])[facility]ITALMaryellen CHATTERJEE RITTMAN (SWRLAB)[address] [place] [address] [place] Platelets (Bld) [#/Vol] 149 10*3/uL Normal 140-440 [facility] Comment on above: Performed By: #### Abiodun AB322, [id number] ####Brazing Machine Feeder: PING [place]END ([id number])[facility]ITALMaryellen CHATTERJEE RITTMAN (SWRLAB)[address] [place] [address] [place] RBC (Bld) [#/Vol] 4.20 10*6/uL Normal 3.80-5.20 [facility] Comment on above: Performed By: #### Abioudn AB322, [id number] ####Brazing Machine Feeder: PING [place]NSEND ([id number])[facility] (SWRLAB)[address] [place] [address] WBC (Bld) [#/Vol] 8.3 10*3/uL Normal 3.6-10.7 [facility] Comment on above: Performed By: #### L AB322, [id number] ####Brazing Machine Feeder: PING PANDAOlivia ([id number])[facility] ERIC ROSSTMAN (SWRLAB)[address] [place] [address] ED Nursing Noteon 12-15-2023 ED Nursing Note Patient to room 7 vi a [facility] for c/o a left foot ulcer, lower leg erythema, and a headache. Patient reports she has had her foot ulcer for a couple of months. V/S obtained, call light within reach. Normal [facility] ED Provider Noteon ED Provider Note [...] Resource Strain: Low Risk (01/02/2020) Received from [facility] Overall Financial Resource Strain (CARDIA) Difficulty of Paying Living Expenses: Not very hard Food Insecurity: Food Insecurity Present (01/02/2020) Received from [facility] Hunger Vital Sign Worried About Running Out of Food in the Last Year: Sometimes true Ran Out of Food in the Last Year: Never true Transportation Needs: Unmet Transportation Needs (01/02/2020) Received from [facility] PRAPARE - Transportation Lack of Transportation (Medical): Yes Lack of Transportation (Non-Medical): Yes Physical Activity: Inactive (01/02/2020) Received from [facility] Exercise Vital Sign Days of Exercise per Week: 0 days Minutes of Exercise per Session: 0 min Stress: Stress Concern Present (01/02/2020) Received from [facility] [facility] - Occupational Stress Questionnaire Feeling of Stress : Rather much Social Connections: Moderately Isolated (01/02/2020) Received from [facility] Social Connection and Isolatio (more content not included)... Normal [facility] ED Provider Note This patient was [...] about putting in her observation unit at [facility] for 24 hours of IV antibiotics versus discharging home with oral antibiotics. After shared decision-making she elected to go home. I do think that this is a safe plan. She lives in assisted living and they can help her with continuing to monitor her wound. Gave her strict return precautions and discharged in stable condition. Karen Gallardo MD 12/15/23 193 Normal [facility] ESR (Bld) [Velocity]Ordered By: Lexi Arce on 12-15-2023 Interpretation and review of laboratory results Normal [facility] Laboratory - Chemistry and C hemistry - challengeon 12-15-2023 CRP [Mass/Vol] 57.4 mg/L High NINF - 10.0 mg/L [facility] Laboratory - Hematology and Cell countsOrdered By: Lexi Arce on 12-15-2023 ESR (Bld) [Velocity] 16 mm/h [facility] No Panel Informationon 12-14 Interpretation and review of laboratory results Abnormal [facility] SEDIMENTATION RATE, AUTOMATE Don 12-15-2023 SEDIMENTATION RATE, ERYTHROCYTE 16 mm/hr Normal 0-20 [facility] Comment on above: Performed By: #### L [id number], [id number] ####Brazing Machine Feeder: PING [place]NSEND ([phone])[facility] (SWLAB)[address] [place] [address] XR Foot - left 3 Viewson No obvious acute osteomyelitis. Report Dictated on Electronically Signed By: Gloria Darnell MD Electronically Signed Date/Time: 12/15/2023 7:01 PM EDT [facility] Patient Name: RANDOLPH HUNTER : 1950 [id number] Exam Date/Time: 12/15/2023 18:59 Procedure: XR FOOT [...] of the forefoot. Diffuse vascular calcification present. [facility] Gloria Darnell MD - 12/15/2023 Patient Name: RANDOLPH HUNTER : 1950 [id number] Exam Date/Time: 12/15/2023 18:59 Procedure: XR FOOT [...] Electronically Signed Date/Time: 12/15/2023 7:01 PM EDT [facility] Radiology Study observation (narrative) [facility] XR Foot - left 3 ViewsOrdere d By: Gloria Darnell on 12-15-2023 [facility] Work Phone: ED Nursing Noteon 07-20-2023 ED Nursing Note Physician's arrived; pt removed from urine collection device and pts own attends placed on pt per her request. Pts belongings in bag at bedside. Report to Physician's. Veronika Bae RN 07/20/23 9127 Normal [facility] ED Nursing Note Physician's Ambulanc e arrived with an ambulette/wheelchair van. Chasidy MCCRACKEN spoke with Physician's to inform them that the pt is non ambulatory and needed a stretcher. Physician's states they will have a stretcher here "within the hour." Veronika Bae RN 07/20/23 0769 Normal [facility] ED Nursing Note Patient pressed call light to request pain medication. States pain is in shoulders and down the back from laying on the tables. notified Gifty Cornell RN 07/20/23 [address] [facility] [address] CERVICAL SPINE WO IV CONT Teresa 07-19-2023 CT CERVICAL SPINE WO IV CONTRAST Patient Name: RANDOLPH HUNTER : 1950 Exam Date/Time: 07/19/2023 22:56 Procedure: CT CERVICAL SPINE WO IV CONTRAST Ordering Provider: ANNA DOUGLAS Reason For Exam: cervical spine pain after fall. fails [place] CT CERVICAL SPINE: CLINICAL INDICATION: cervical spine pain after fall. fails [place] TECHNIQUE: Transaxial sequence through the cervical spine. [...] Electronically Signed Date/Time: 07/19/2023 11:18 PM EST [facility] CT Cervical spine WO contras ton 07-19-2023 No acute cervical sp ine fracture. Multilevel cervical spondylosis. Report Dictated on Electronically Signed By: Albina Newton MD Electronically Signed Date/Time: 07/19/2023 11:18 PM EST [facility] Patient Name: RANDOLPH HUNTER : 1950 Exam Date/Time: 07/19/2023 22:56 Procedure: CT CERVICAL SPINE WO IV CONTRAST Ordering Provider: ANNA DOUGLAS Reason For Exam: cervical spine pain after fall. fails [place] CT CERVICAL SPINE: CLINICAL INDICATION: cervical spine pain after fall. fails [place] TECHNIQUE: Transaxial sequence through the cervical spine. [...] submandibular gland. Other: Lung apices are unremarkable. [facility] Albina Newton M D - 07/19/2023 Patient Name: RANDOLPH HUNTER : 1950 [id number] Exam Date/Time: 07/19/2023 22:56 Procedure: CT CERVICAL SPINE WO IV CONTRAST Ordering Provider: ANNA DOUGLAS Reason For Exam: cervical spine pain after fall. fails [place] CERVICAL SPINE: CLINICAL INDICATION: cervical spine pain after fall. fails [place] TECHNIQUE: Transaxial sequence through the cervical spine. [...] Electronically Signed Date/Time: 07/19/2023 11:18 PM EST [facility] Radiology Study observation (narrative) [facility] CT Cervical spine WO contras tOrdered By: Albina Newton on 07-19-2023 [facility] Work Phone: CT HEAD WO IV CONTRASTon [...] Signed Date/Time: 07/19/2023 11:02 PM EST Normal [facility] CT Head WO contraston 2023 No acute intracrania l abnormality. Mild diffuse cortical volume loss. Report Dictated on Electronically Signed By: Albina Newton MD Electronically Signed Date/Time: 07/19/2023 11:02 PM EST [facility] Patient Name: RANDOLPH HUNTER : [...] Orbits: Normal Calvarium and skull base: Normal [facility] Albina Newton M D - [...] Electronically Signed Date/Time: 07/19/2023 11:02 PM EST [facility] Radiology Study observation (narrative) [facility] CT Head WO contrastOrdered B y: Albina Newton on 07-19-2023 [facility] Work Phone: CT PELVIS WO IV CONTRASTon 0 07-19-2023 CT PELVIS WO IV CONTRAST Patient Name: RANDOLPH HUNTER : 1950 [id number] Exam Date/Time: 07/19/2023 22:57 Procedure: CT PELVIS [...] Signed Date/Time: 07/19/2023 11:27 PM EST Normal [facility] CT Pelvis WO contraston 06-23 No acute fracture. Nonacute findings, as above. Report Dictated on Electronically Signed By: Albina Newton MD Electronically Signed Date/Time: 07/19/2023 11:27 PM EST [facility] Patient Name: RANDOLPH HUNTER : [...] No sizable hematoma in the soft tissues. [facility] Albina Newton M D - 07/19/2023 Patient [...] Electronically Signed Date/Time: 07/19/2023 11:27 PM EST [facility] Radiology Study observation (narrative) [facility] CT Pelvis WO contrastOrdered By: Albina Newton on 07-19-2023 [facility] [employer] Work Phone: ED Nursing Noteon 07-19-2023 ED Nursing Note Report given to Shubham lopes RN & Chasidy MCCRACKEN. Patient still in radiology. Pia Caraballo RN 07/19/23 9197 Normal [facility] ED Nursing Note Dispo per imaging :) Chasidy Fernandez RN 07/19/232253 Normal [facility] ED Nursing Note Pt placed up for dis charge. No discharge paperwork complete at this time. Once orders are complete and discharge paperwork complete by ER DR Pt will be discharged. Chasidy Fernandez RN 07/19/23 710 Normal [facility] ED Nursing Note This RN requested or ders from ER . Chasidy Fernandez RN 07/19/232025 Normal [facility] ED Nursing Note Patient is here for right hip pain. She was transferring to the toilet when she fell. She resides at [address] She currently is working with a physical therapist and is in a wheelchair. Patient hooked up to [employer] due to incontinence. She also has right knee bruising that is from her repeatedly hitting it on her wheelchair. She denies hitting her head or neck during fall. She is on coumadin. Call light within reach. Normal [facility] ED Provider Noteon ED Provider Note [...] No family history. She lives in a senior living facility and is on Coumadin as she [...] Source Patient (more content not included)... Normal [employer] [facility] No Panel Informationon 07-19 1. Right knee arthro plasty in adequate alignment 2. Unremarkable right hip 3. Osteoarthritis of the left knee Report Dictated on Electronically Signed By: Phan Sepulveda MD Electronically Signed Date/Time: 07/19/2023 11:53 PM EST [facility] [employer] No Panel InformationOrdered By: Phan Sepulveda on 07-19-2023 [employer] Phone: XR Femur - right 2 Viewson [...] calcifications as well as the popliteal fossa. [facility] Phan Sepulveda MD - 07/19/2023 Patient [...] Electronically Signed Date/Time: 07/19/2023 11:53 PM EST [facility] [employer] Radiology Study observation (narrative) [facility] XR Knee - left 3 Viewson Patient [...] calcifications as well as the popliteal fossa. [facility] Phan Sepulveda MD - 07/19/2023 [...] Electronically Signed Date/Time: 07/19/2023 11:53 PM EST [employer] Radiology Study observation (narrative) [employer] XR Knee - right 3 Viewson Patient Name: RANDOLPH HUNTER : 1950 [id number] Exam Date/Time: 07/19/2023 23:49 Procedure: XR KNEE [...] calcifications as well as the popliteal fossa. [facility] Phan Sepulveda MD - 07/19/2023 Patient Name: RANDOLPH HUNTER : 1950 [id number] Exam Date/Time: 07/19/2023 23:49 Procedure: XR KNEE [...] Electronically Signed Date/Time: 07/19/2023 11:53 PM EST [facility] Radiology Study observation (narrative) [facility] ECG 12-LEADon 09-07-2022 ECG 12-LEAD IMPRESSION: Sinus rhythm Borderline left axis deviation Probable lateral infarct, old Abnrm R prog, consider ASMI or lead placement Electronically Signed On 09-07-2022 11:08:52 EDT by Sai Melchor Normal [facility] ABO and Rh group Confirm Nom (Bld)on 09-06-2022 ABO group Nom (Bld) A [facility] D Ag Ql (RBC) Negative [facility] Basic metabolic 1998 panelon 09-06-2022 Anion gap [Moles/Vol] 5 mmol/L 3 - 13 mmol/L [facility] Calcium [Mass/Vol] 9.2 mg/dL 8.4 - 10. 4 mg/dL [facility] Chloride [Moles/Vol] 104 mmol/L 98 - 107 mmol/L [facility] CO2 [Moles/Vol] 30 mmol/L 22 - 30 mmol/L [facility] Creatinine [Mass/Vol] 0.86 mg/dL 0.52 - 1.04 mg/dL [facility] GFR/1.73 sq M.predicted MDRD (S/P/Bld) [Vol rate/Area] 72.3 mL/min/{1.73_m2} - PINF [facility] Comment on above: Calculation based on the Chronic Kidney Disease Epidemiology Collaboration (CKD-EPI) equation refit without adjustment for race Glucose [Mass/Vol] 144 mg/dL High 70 - 100 mg/dL [facility] Interpretation and review of laboratory results Abnormal [facility] Potassium [Moles/Vol] 5.4 mmol/L High 3.5 - 5.1 mmol/L [facility] Sodium [Moles/Vol] 139 mmol/L 135 - 145 mmol/L [facility] Urea nitrogen [Mass/Vol] 26 mg/dL High 7 - 17 mg/dL [facility] Slightly Hemolyzed. Interpret Potassium with caution. [facility] Blood type and Crossmatch pa shaheen (Bld)on 09-06-2022 ABO group Nom (Bld) A [facility] Blood group antibody screen GEL Ql Negative [facility] D Ag Ql (RBC) Negative [facility] CBC W Auto Differential pane l (Bld)on 09-06-2022 Basophils (Bld) [#/Vol] 0.0 10*3/uL 0.0 - 0.2 10*3/uL [facility] Basophils/100 WBC (Bld) 0.5 % 0.0 - 2.0 % [facility] Eosinophils (Bld) [#/Vol] 0.2 10*3/uL 0.0 - 0.5 10*3/uL [facility] Eosinophils/100 WBC (Bld) 3.3 % 1.0 - 6.0 % [facility] Erythrocyte distribution width (RBC) [Ratio] 14.5 % 11.5 - 14.5 % [facility] Hematocrit (Bld) [Volume fraction] 40.1 % 35.0 - 47.0 % [facility] Hemoglobin (Bld) [Mass/Vol] 12.9 g/dL 11.7 - 16.0 g/dL [facility] Interpretation and review of laboratory results Normal [facility] Lymphocytes (Bld) [#/Vol] 1.6 10*3/uL 1.0 - 4.3 10*3/uL [facility] Lymphocytes/100 WBC (Bld) 24.7 % 20.0 - 40.0 % [facility] MCH (RBC) [Entitic mass] 30.6 pg 26.0 - 34.0 pg [facility] MCHC (RBC) [Mass/Vol] 32.2 % 32.0 - 36.0 % [facility] MCV (RBC) [Entitic vol] 95.2 fL 80.0 - 98.0 fL [facility] Monocytes (Bld) [#/Vol] 0.5 10*3/uL 0.0 - 0.8 10*3/uL [facility] Monocytes/100 WBC (Bld) 7.9 % 2.0 - 10.0 % [facility] Neutrophils (Bld) [#/Vol] 4.1 10*3/uL 1.8 - 7.0 10*3/uL [facility] Neutrophils/100 WBC (Bld) 63.6 % 40.0 - 80.0 % [facility] Nucleated RBC/100 WBC (Bld) [Ratio] 0.1 % [facility] Platelet mean volume (Bld) [Entitic vol] 8.7 fL 7.4 - 12.4 fL [facility] Platelets (Bld) [#/Vol] 150 10*3/uL 140 - 440 10*3/uL [facility] RBC (Bld) [#/Vol] 4.21 10*6/uL 3.8 - 5.20 10*6/uL [facility] WBC (Bld) [#/Vol] 6.4 10*3/uL 3.6 - 10.7 10*3/uL [facility] CT CERVICAL SPINE WO IV CONT [facility] 09-06-2022 CT CERVICAL SPINE WO IV CONTRAST [...] cervical spine fracture. Report Dictated on Workstation: Glance Electronically Signed By: Tiago Charles Electronically Signed Date/Time: 09/06/2022 2:24 AM EDT [facility] CT Cervical spine WO contras ton 09-06-2022 No cervical spine fr acture. Report Dictated on Workstation: Glance Electronically Signed By: Tiago Charles Electronically Signed Date/Time: 09/06/2022 2:24 AM EDT [facility] Cognitive Code Patient Name: PATSY MCFARLANE : 1950 [id number] Exam Date/Time: 09/06/2022 02:11 Procedure: CT CERVICAL [...] soft tissues and lung apices are unremarkable. [facility] [employer] Tiago Charles MD - Patient Name: [...] Electronically Signed Date/Time: 09/06/2022 2:24 AM EDT [email or web address] WO IV CONTRASTon CT HEAD [...] Signed Date/Time: 09/06/2022 8:39 AM EDT Normal [facility] CT HEAD WO IV CONTRAST Patient Name: DRAKE ECHO : 1950 [id number] Exam Date/Time: 09/06/2022 02:11 Procedure: CT HEAD [...] Signed Date/Time: 09/06/2022 2:16 AM EDT Normal [facility] CT Head WO contraston [address] evidence of [place] intracranial abnormality, other than mild acute sphenoid sinusitis. Report Dictated on Electronically Signed By: Gloria Darnell Electronically Signed Date/Time: 09/06/2022 8:39 AM EDT [facility] Patient Name: DANIEL DIAZ, ECHO : [...] the distal vertebral arteries is also noted. [facility] Gloria Darnell MD - 09/06/2022 Patient Name: DRAKE, ECHO : 1950 Exam Date/Time: 09/06/2022 08:26 [...] Electronically Signed Date/Time: 09/06/2022 8:39 AM EDT [facility] Radiology Study observation (narrative) [facility] No acute intracrania l hemorrhage or mass effect. Report Dictated on Electronically Signed By: Tiago Charles Electronically Signed Date/Time: 09/06/2022 2:16 AM EDT [employer] SYSTEM Patient Name: DANIEL DIAZ ECHO : [...] cells are well aerated. Calvarium is unremarkable. [facility] [employer] Tiago Charles MD - Patient Name: [...] Electronically Signed Date/Time: 09/06/2022 2:16 AM EDT [facility] CT Head WO contrastOrdered B y: Gloria Cerratolina on 09-06-2022 [facility] Work Phone: ED Nursing Noteon 09-06-2022 ED Nursing Note RN called back from Residence for report after patient left. This RN updated RN. No questions or concerns Lucy Jones RN 09/06/22 1115 Normal [facility] ED Nursing Note This RN attempted re port at [facility] for patient. RN's busy, classroom coordinator took RN name and number to return call for report if wanted. Lucy Jones RN 09/06/22 1018 Normal [facility] ED Nursing Note DM ETA 20-30 min (10 20-1030) Lucy Jones RN 09/06/22 0953 Normal [facility] ED Nursing Note Patient resting with eyes closed. Respirations even and unlabored. RN called about work order for call light / panel. Will be there soon to fix. Lucy Jones RN 09/06/22 0944 Normal [facility] ED Nursing Note Pt back in room Lucy Jones RN 09/06/22 0832 Normal [facility] ED Nursing Note Pt at CT Lucy Jones RN 09/06/22 0826 [facility] ED Nursing Note Patient yelling in [...] this time Lucy Jones RN 09/06/22 0739 [facility] ED Nursing Note Pt to x-ray in stabl e condition. Bárbara Hogan RN 09/06/22225 [facility] ED Nursing Note Report of to bárbara Younger RN 09/06/22220 [facility] ED Nursing Note Bed: 23 Expected date: Expected time: Means of arrival: Comments: SX TEAM Aaron Wallace RN 09/06/22220 [facility] ED Provider Noteon ED Provider Note Emergency Department Encounter Location: [facility] EMERGENCY DEPT Patient: Patsy Juan : [...] 445 ms QTC Interval 457 ms P [place] 49 degrees QRS [place] -29 degrees T Wave [place] 11 degrees OR Interval [address] head wo IV [...] Result Upper pelvis is excluded from the dzonf-qz-wpeo. No fracture or dislocation of the imaged [...] y.o. female whose (more content not included)... [facility] ED Provider Note Emergency Department Encounter Location: [facility] EMERGENCY DEPT Patient: Patsy Juan : [...] 445 ms QTC Interval 457 ms P [place] 49 degrees QRS [place] -29 degrees T Wave [place] 11 degrees OR Interval 149 ms XR shoulder 2+ views [...] Result Upper pelvis is excluded from the sgpad-qk-ejtk. No fracture or dislocation of the imaged [...] Impression 1. (more content not included)... Normal [facility] ED Provider Note [facility] EMERGENCY DEPT EMERGENCY DEPARTMENT ENCOUNTER Pt [...] A Ant (more content not included)... Normal [facility] SHS Ethanol (Bld) [Mass/Vol]on 0 09-06-2022 Ethanol [Mass/Vol] g/dL 0.000 - 0.010 g/dL [facility] Laboratory - Chemistry and C hemistry - challengeon 09-06-2022 Troponin I.cardiac [Mass/Vol] ng/mL 0.000 - 0.034 ng/mL [facility] Magnesium [Mass/Vol] 1.8 mg/dL 1.6 - 2.3 mg/dL [facility] Lactate [Moles/Vol] 1.4 mmol/L 0.7 - 2. 0 mmol/L [facility] Laboratory - Coagulationon 0 09-06-2022 aPTT Coag (PPP) [Time] 33.8 s High 20.0 - 30.5 s [facility] INR Coag (PPP) [Relative time] 1.8 {INR} High 0.9 - 1.1 [facility] Comment on above: Recommended Anticoag [...] 18.5 s High 9.0 - 12.0 s [facility] Laboratory - Drug toxicology Ordered By: Harper Estes on 09-06-2022 Amphetamines Screen method >1000 ng/mL Ql (U) Negative [facility] Barbiturates Screen method >200 ng/mL Ql (U) Negative [facility] Benzodiazepines Ql (U) Negative [facility] Methadone Screen Ql (U) Negative [facility] Opiates Screen Ql (U) Positive [facility] oxyCODONE Ql (U) Negative [facility] Phencyclidine Ql (U) Negative [facility] Magnesium [Mass/Vol]on 09-06 .01 [facility] No Panel InformationOrdered By: Harper Estes on 09-06-2022 COCAINE METAB. SCREEN Negative [facility] The expected value f or [...] is needed, request confirmation under separate order. [facility] [place] [facility] Absolute Antibody [employer] No Panel Informationon 09-06 Interpretation and review of laboratory results Normal [facility] [place] [facility] Absolute Antibody [employer] Interpretation and review of laboratory results Normal [facility] [place] [facility] Absolute Antibody [employer] Interpretation and review of laboratory results Abnormal [facility] [email or web address] Radiology Study observation (narrative) [email or web address] Phosphate [Moles/Vol]on 08-20 Phosphate [Mass/Vol] 3.9 mg/dL 2.5 - 4.5 mg/dL [employer] Slightly Hemolyzed. Interpret Phosphorus with caution. [employer] Progress Noteon 09-06-2022 Progress Note Department of Trauma / Critical Care Tertiary Survey Date of Trauma: 09/06/2022 1:36 AM MARIANELA/HPI: 72 y.o. female status post fall from standing. The incident happened around 0120 on 09/06/[address] [facility]. When the event happened the patient was [...] fracture or dislocation. Report Dictated on Workstation: Glance Electronically Signed By: Tiago Charles Electronically Signed [...] identified. There (more content not included)... Normal [facility] Troponin I.cardiac [Mass/Vol ]on 09-06-2022 Interpretation and review of laboratory results Normal [facility] Patients with high l evels of Biotin oral intake (ie >5 mg/day) may have falsely decreased Troponin levels. [facility] XR Chest Single viewon 09-06 No focal consolidati on or pulmonary edema. Report Dictated on Workstation: Glance Electronically Signed By: Tiago Charles Electronically Signed Date/Time: 09/06/2022 2:12 AM EDT [facility] [employer] Patient Name: PATSY MCFARLANE : 1950 Exam Date/Time: 09/06/2022 02:06 Procedure: XR CHEST 1 VIEW Ordering Provider: HUTSON RICHARD Reason For Exam: TRAUMA PORTABLE CHEST CLINICAL INDICATION: Pain, trauma TECHNIQUE: Portable AP COMPARISON: None FINDINGS: No focal consolidation or pulmonary edema. No pleural effusions or pneumothorax. The cardiac and mediastinal silhouettes are normal. Degenerative change of the thoracic spine is noted. [facility] RADIOLOGY SYSTEM Tiago Charles MD - Patient [...] Electronically Signed Date/Time: 09/06/2022 2:12 AM EDT [facility] [place] [facility] [employer] Radiology Study observation (narrative) [employer] XR Chest Single viewOrdered By: Tiago Charles on 09-06-2022 [employer] Work Phone: XR Pelvis 1 or 2 Viewson Upper pelvis is excl uded from the gajzr-oe-lavp. No fracture or dislocation of the imaged pelvis. Report Dictated on Electronically Signed By: Tiago Charles Electronically Signed Date/Time: 09/06/2022 2:12 AM EDT [facility] Patient Name: DANIEL DIAZ ECHO : 1950 Exam Date/Time: 09/06/2022 02:07 Procedure: XR PELVIS 1-2 VIEWS Ordering Provider: HUTSON RICHARD Reason For Exam: TRAUMA PELVIS: CLINICAL INDICATION: Pain, trauma. TECHNIQUE: AP. Technical note: Upper pelvis is excluded from the zzyhe-jg-bogo. COMPARISON: None. FINDINGS: There is no evidence for fracture or dislocation. The hips joints are unremarkable. The imaged sacroiliac joints are normal. No bone lesion is identified. There is no soft tissue abnormality. Surgical clips project over the right groin. [facility] RADIOLOGY SYSTEM Tiago Charles MD - Patient Name: PATSY JUAN : 1950 Exam Date/Time: 09/06/2022 02:07 Procedure: XR PELVIS 1-2 VIEWS Ordering Provider: HUTSON RICHARD Reason For Exam: TRAUMA PELVIS: CLINICAL INDICATION: Pain, trauma. TECHNIQUE: AP. Technical note: Upper pelvis is excluded from the dttim-yb-xwmk. COMPARISON: None. FINDINGS: There is no evidence for fracture or dislocation. The hips joints are unremarkable. The imaged sacroiliac joints are normal. No bone lesion is identified. There is no soft tissue abnormality. Surgical clips project over the right groin. IMPRESSION: Upper pelvis is excluded from the yqcgp-ny-oped. No fracture or dislocation of the imaged pelvis. Report Dictated on Electronically Signed By: Tiago Charles Electronically Signed Date/Time: 09/06/2022 2:12 AM EDT [facility] Radiology Study observation (narrative) [facility] XR Shoulder - left 2 Viewson 09-06-2022 No fracture or dislo cation. Report Dictated on Electronically Signed By: Tiago Charles Electronically Signed Date/Time: 09/06/2022 3:11 AM EDT [employer] Patient Name: PATSY MCFARLANE : 1950 [...] identified. There is no soft tissue abnormality. [facility] RADIOLOGY SYSTEM Tiago Charles MD - Patient [...] Electronically Signed Date/Time: 09/06/2022 3:11 AM EDT [facility] Radiology Study observation (narrative) [facility] XR Shoulder - right 2 Viewso n 09-06-2022 No fracture or dislo cation. Report Dictated on Electronically Signed By: Tiago Charles Electronically Signed Date/Time: 09/06/2022 2:42 AM EDT [employer] Patient Name: PATSY MCFARLANE : 1950 [...] identified. There is no soft tissue abnormality. [facility] RADIOLOGY SYSTEM Tiago Charles MD - Patient [...] Electronically Signed Date/Time: 09/06/2022 2:42 AM EDT [facility] Radiology Study observation (narrative) [facility] CULTURE BLOODon 03-14-2022 Microscopic examination of blood, culture CULTURE BLOOD --> Status: F [employer] testing is not routinely performed on Gram positive bacilli. If a Listeria infection is highly suspected, contact the Microbiology laboratory ([phone]). positive bacilli. If a Listeria infection is highly suspected, contact the Microbiology laboratory ([phone]). 1 Organism Propionibacterium acnes Isolated: Contamination likely unless additional blood culture sets are found to be positive with the same organism. Normal [facility] Comment on above: Performed By: #### C /BLD #### [facility] [address] [place] [address] CULTURE BLOOD (Two)on 2021 Microscopic examination of blood, culture CULTURE BLOOD (Two) --> Status: F No growth at 5 days. Normal [facility] Comment on above: Performed By: #### P T/AP, BMP3, HEMDF #### [facility] [address] [place] [address] GASTROINTESTINAL PCR PANELon 03-12-2022 GASTROINTESTINAL PCR PANEL GASTROINTESTINAL PCR PANEL --> Status: F NEGATIVE: No targets were detected by the [employer] Gastrointestinal PCR Panel. _ The [employer] Gastrointestinal [...] Astrovirus, Norovirus GI/GII, Rotavirus A, Sapovirus Normal [facility] Comment on above: Performed By: #### B FGI #### [address] [id number] Gastrointestinal Panel by [facility]EDR[facility] 03-12-2022 Gastrointestinal PCR Panel NEGATIVE: No targets were detected by the [employer] Gastrointestinal PCR Panel. _ The [employer] Gastrointestinal PCR Panel can detect the following targets: Campylobacter, Plesiomonas shigelloides, Salmonella, Vibrio species, Vibrio cholerae, Yersinia enterocolitica, Shiga toxin-producing E coli (STEC) including E coli O157, Enterotoxigenic E coli (ETEC), Shigella/Enteroinvasive E coli (EIEC), Cryptosporidium, Cyclospora cayetanensis, Entamoeba histolytica, Giardia lamblia, Adenovirus F 40/41, Astrovirus, Norovirus GI/GII, Rotavirus A, Sapovirus [facility] Test Performed by [facility], [address] [place] [address] LAB [facility] Glucose,Bedsideon 03-12-2022 Glucose [Mass/Vol] 177 mg/dL High 70-100 [facility] Comment on above: Result Comment: Test performed by glucose meter. Results may be 10%-15% lower than serum/plasma values. (CLIA ID [id number]) Performed By: #### B GLU #### [facility] [address] [place] [address] Glucose [Mass/Vol] 130 mg/dL High 70-100 [facility] Comment on above: Result Comment: Test performed by glucose meter. Results may be 10%-15% lower than serum/plasma values. (CLIA ID [id number]) Performed By: #### B GLU #### [facility] [address] [place] [address] Glucose [Mass/Vol] 141 mg/dL High 70-100 [facility] Comment on above: Result Comment: Test performed by glucose meter. Results may be 10%-15% lower than serum/plasma values. (CLIA ID [id number]) Performed By: #### P T/AP, BMP3, HEMDF #### [facility] [address] [place] [address] Glucose [Mass/Vol] 120 mg/dL High 70-100 [facility] Comment on above: Result Comment: Test performed by glucose meter. Results may be 10%-15% lower than serum/plasma values. (CLIA ID [id number]) Performed By: #### B GLU #### [facility] [address] [place] [address] POCT GlucoseOrdered By: Hansel Connell on 03-12-2022 Glucose [Mass/Vol] 177 mg/dL High 70 - 100 mg/dL [facility] Work Phone: Comment on above: Test performed by gl ucose meter. Results may be 10%-15% lower than serum/plasma values. (CLIA ID [id number]) Interpretation and review of laboratory results Abnormal [facility] Work Phone: [facility] Work Phone: POCT Glucoseon 03-12-2022 Test Performed by [facility], [address] [place], [place] [address] [facility] Glucose [Mass/Vol] 130 mg/dL High 70 - 100 mg/dL [facility] Comment on above: Test performed by gl ucose meter. Results may be 10%-15% lower than serum/plasma values. (CLIA ID [id number]) Interpretation and review of laboratory results Abnormal [facility] Test Performed by [facility], [address] [place], [place] [id number] [place] [address] LAB [facility] Glucose [Mass/Vol] 141 mg/dL High 70 - 100 mg/dL [facility] Comment on above: Test performed by gl ucose meter. Results may be 10%-15% lower than serum/plasma values. (CLIA ID [id number]) Interpretation and review of laboratory results Abnormal [facility] Test Performed by [facility], [address] [place], [place] [id number] [place] [address] LAB [facility] Glucose [Mass/Vol] 120 mg/dL High 70 - 100 mg/dL [facility] Work Phone: Comment on above: Test performed by gl ucose meter. Results may be 10%-15% lower than serum/plasma values. (CLIA ID [id number]) Interpretation and review of laboratory results Abnormal [facility] Work Phone: Test Performed by [facility], [address] [place], [place] [id number] [place] [address] LAB [facility] Work Phone: Prothrombin Timeon 2 INR 3.6 High 0.9-1.1 [facility] Comment on above: Result Comment: Rajiv [...] By: #### P T/AP, BMP3, HEMDF #### [facility] [address] [place] [address] PT Coag (PPP) [Time] 36.1 s High 9.0-12.0 [facility] Comment on above: Result Comment: . Performed By: #### P T/AP, BMP3, HEMDF #### [facility] [address] [place] [address] Protime-INRon 03-12-2022 INR Coag (Bld) [Relative time] 3.6 {INR} High [facility] Comment on above: Recommended Anticoag ulant [...] Interpretation and review of laboratory results Abnormal [facility] PT Coag (PPP) [Time] 36.1 s High 9 - 12 s [facility] Comment on above: . Test Performed by [facility], [address] [facility] LAB [facility] Basic Metabolic Panelon 02-21 Anion gap [Moles/Vol] 1 mmol/L Low 3-13 [facility] Comment on above: Performed By: #### P T/AP, BMP3, HEMDF #### [facility] [address] [place] [address] Calcium [Mass/Vol] 8.1 mg/dL Low 8.4-10.4 [facility] Comment on above: Performed By: #### P T/AP, BMP3, HEMDF #### [facility] [address] [place] [address] CO2 [Moles/Vol] 30 mmol/L Normal 22-30 [facility] Comment on above: Performed By: #### P T/AP, BMP3, HEMDF #### [facility] [address] [place] [address] Creatinine [Mass/Vol] 0.70 mg/dL Normal 0.52-1.25 [facility] Comment on above: Performed By: #### P T/AP, BMP3, HEMDF #### [facility] [address] [place] [address] GFR/1.73 sq M.predicted among blacks MDRD (S/P/Bld) [Vol rate/Area] mL/min/{1.73_m2} Normal >60 [facility] Comment on above: Performed By: #### P T/AP, BMP3, HEMDF #### [facility] [place] [facility] [employer] [facility] [address] [place] [address] GFR/1.73 sq M.predicted among non-blacks MDRD (S/P/Bld) [Vol rate/Area] 87.4 mL/min/{1.73_m2} Normal >60 [facility] Comment on above: Result Comment: KDIG [...] By: #### P T/AP, BMP3, HEMDF #### [facility] [place] [facility] [employer] [facility] [address] [place] [address] Glucose [Mass/Vol] 118 mg/dL High 70-100 [facility] Comment on above: Performed By: #### P T/AP, BMP3, HEMDF #### [facility] [place] [facility] [employer] [facility] [address] [place] [address] Urea nitrogen [Mass/Vol] 8 mg/dL Low 9-20 [facility] Comment on above: Performed By: #### P T/AP, BMP3, HEMDF #### [facility] [place] [facility] [employer] [facility] [address] [place] [address] Chloride [Moles/Vol] 106 mmol/L Normal 98-107 [facility] Comment on above: Performed By: #### P T/AP, BMP3, HEMDF #### [facility] [place] [facility] [employer] [facility] [address] [place] [address] Potassium [Moles/Vol] 4.1 mmol/L Normal 3.5-5.1 [facility] Comment on above: Performed By: #### P T/AP, BMP3, HEMDF #### [facility] [place] [facility] [employer] [facility] [address] [place] [address] Sodium [Moles/Vol] 137 mmol/L Normal 135-145 [facility] Comment on above: Performed By: #### P T/AP, BMP3, HEMDF #### [facility] [address] [place] [address] Anion gap [Moles/Vol] 1 mmol/L Low 3 - 13 mmol/L [facility] Calcium [Mass/Vol] 8.1 mg/dL Low 8.4 - 10. 4 mg/dL [facility] Chloride [Moles/Vol] 106 mmol/L 98 - 107 mmol/L [facility] CO2 [Moles/Vol] 30 mmol/L 22 - 30 mmol/L [facility] Creatinine [Mass/Vol] 0.7 mg/dL 0.52 - 1.25 mg/dL [facility] eGFR mL/min 60 - PINF mL/min [facility] EGFR IF NonAfrican Vietnamese 87.4 mL/min 60 - PINF mL/min [facility] [...] - 20 mg/dL [facility] Test Performed by [facility], [address], [place], [place] [id number] [place] [address] LAB [facility] CBC with Auto Differentialon 03-11-2022 [...] [Mass/Vol] 11.7 g/dL 11.7 - 16 g/dL [facility] Interpretation and review of laboratory results [...] vol] 8.2 fL 7.4 - 12.4 fL [facility] Comment on above: MPV is a calculated measurement using platelet volume ratio. Platelets (Bld) [#/Vol] 128 10*3/uL Low 140 - 440 10*3/uL [facility] RBC (Bld) [#/Vol] 3.63 10*6/uL Low 3.8 - 5.2 10*6/uL [facility] WBC (Bld) [#/Vol] 4.6 10*3/uL 3.6 - 10.7 10*3/uL [facility] Test Performed by [facility], [address], [place], [place] [address] [facility] CULTURE URINEon 03-11-2022 CULTURE URINE 1 Organism [...] 1 S Amikacin(NORMA) <= 2 S Normal [facility] Comment on above: Performed By: #### P T/AP, BMP3, HEMDF #### [facility] [address] [place] [address] Culture, Urineon 03-11-2022 Bacteria identified Cx Nom (U) Klebsiella pneumoniae ss. pneumoniae Abnormal [facility] Bacteria identified Cx Nom (U) >100,000 CFU/ml [facility] Interpretation and review of laboratory results Abnormal [facility] Test Performed by [facility], [address] [place] [address], [place] [address] [facility] Glucose,Bedsideon 03-11-2022 Glucose [Mass/Vol] 140 mg/dL High 70-100 [facility] Comment on above: Result Comment: Test performed by glucose meter. Results may be 10%-15% lower than serum/plasma values. (CLIA ID [id number]) Performed By: #### P T/AP, BMP3, HEMDF #### [facility] [address] [place] [place] [address] Glucose [Mass/Vol] 121 mg/dL [facility] [address] Comment on above: Result Comment: Test performed by glucose meter. Results may be 10%-15% lower than serum/plasma values. (CLIA ID [id number]) Performed By: #### P T/AP, BMP3, HEMDF #### [facility] [address] [place] [address] Glucose [Mass/Vol] 127 mg/dL [address] Comment on above: Result Comment: Test performed by glucose meter. Results may be 10%-15% lower than serum/plasma values. (CLIA ID [id number]) Performed By: #### P T/AP, BMP3, HEMDF #### [facility] [address] [place] [place] [address] Glucose [Mass/Vol] 139 mg/dL [facility] [address] Comment on above: Result Comment: Test performed by glucose meter. Results may be 10%-15% lower than serum/plasma values. (CLIA ID [id number]) Performed By: #### P T/AP, BMP3, HEMDF #### [facility] [address] [place] [address] Hemogram w/ Autodiffon 03-11 Abs Baso Cnt 0.0 10*3/uL Normal 0.0-0.2 [facility] Comment on above: Performed By: #### P T/AP, BMP3, HEMDF #### [facility] [address] [place] [address] Abs Neutrophile Cnt 2.9 10*3/uL Normal 1.8-7.0 [facility] Comment on above: Performed By: #### P T/AP, BMP3, HEMDF #### [facility] [address] [place] [address] Basophils/100 WBC (Bld) 0.6 % Normal 0.0-2.0 [facility] Comment on above: Performed By: #### P T/AP, BMP3, HEMDF #### [facility] [address] [place] [address] Eosinophils (Bld) [#/Vol] 0.2 10*3/uL Normal 0.0-0.5 [facility] Comment on above: Performed By: #### P T/AP, BMP3, HEMDF #### [facility] [address] [place] [address] Eosinophils/100 WBC (Bld) 5.3 % Normal 1.0-6.0 [facility] Comment on above: Performed By: #### P T/AP, BMP3, HEMDF #### [facility] [address] [place] [address] Erythrocyte distribution width (RBC) [Ratio] 13.8 % Normal 11.5-14.5 [facility] Comment on above: Performed By: #### P T/AP, BMP3, HEMDF #### [facility] [address] [place] [address] Granulocytes/100 WBC (Bld) 62.2 % Normal 40.0-80.0 [facility] Comment on above: Performed By: #### P T/AP, BMP3, HEMDF #### [facility] [address] [place] [address] Hematocrit (Bld) [Volume fraction] 32.8 % Low 35.0-47.0 [facility] Comment on above: Performed By: #### P T/AP, BMP3, HEMDF #### [facility] [address] [place] [address] Hemoglobin (Bld) [Mass/Vol] 11.7 g/dL Normal 11.7-16.0 [facility] Comment on above: Performed By: #### P T/AP, BMP3, HEMDF #### [facility] [address] [place] [address] Lymphocytes (Bld) [#/Vol] 1.0 10*3/uL Normal 1.0-4.3 [facility] Comment on above: Performed By: #### P T/AP, BMP3, HEMDF #### [facility] [address] [place] [address] Lymphocytes/100 WBC (Bld) 22.5 % Normal 20.0-40.0 [facility] Comment on above: Performed By: #### P T/AP, BMP3, HEMDF #### [facility] [address] [place] [address] MCH (RBC) [Entitic mass] 32.1 pg Normal 26.0-34.0 [facility] Comment on above: Performed By: #### P T/AP, BMP3, HEMDF #### [facility] [address] [place] [address] MCHC 35.6 % Normal 32.0-36.0 [facility] Comment on above: Performed By: #### P T/AP, BMP3, HEMDF #### [facility] [address] [place] [address] MCV (RBC) [Entitic vol] 90.2 fL Normal 79.0-98.0 [facility] Comment on above: Performed By: #### P T/AP, BMP3, HEMDF #### [facility] [address] [place] [address] Monocytes (Bld) [#/Vol] 0.4 10*3/uL Normal 0.0-0.8 [facility] Comment on above: Performed By: #### P T/AP, BMP3, HEMDF #### [facility] [address] [place] [address] Monocytes/100 WBC (Bld) 9.4 % Normal 2.0-10.0 [facility] Comment on above: Performed By: #### P T/AP, BMP3, HEMDF #### [facility] [address] [place] [address] Platelet mean volume (Bld) [Entitic vol] 8.2 fL Normal 7.4-12.4 [facility] Comment on above: Result Comment: MPV is a calculated measurement using platelet volume ratio. Performed By: #### P T/AP, BMP3, HEMDF #### [place] [address] [place] [address] Platelets (Bld) [#/Vol] 128 10*3/uL Low 140-440 [facility] Comment on above: Performed By: #### P T/AP, BMP3, HEMDF #### [address] [place] [address] RBC (Bld) [#/Vol] 3.63 10*6/uL Low 3.80-5.20 [facility] Comment on above: Performed By: #### P T/AP, BMP3, HEMDF #### [address] [place] [address] WBC (Bld) [#/Vol] 4.6 10*3/uL Normal 3.6-10.7 [facility] Comment on above: Performed By: #### P T/AP, BMP3, HEMDF #### [address] [place] [address] POCT COVID-19, Antigenon SARS-CoV-2 Nucleocapsid Antigen Negative Negative NA [facility] Comment on above: A negative result does not rule out the possibility of SARS-CoV-2 infection. NAAT-based methods should be considered for symptomatic patients presenting greater than seven days after onset of symptoms. Method: Lateral flow immunoassay. Fact sheets for healthcare providers and patients can be found at the following sites: https://www.fda.gov/media/673868/download https://www.fda.gov/media/100570/download Test Performed by [facility], [address] LAB [facility] POCT GlucoseOrdered By: Pedro Luis Mcleod on 03-11-2022 Glucose [Mass/Vol] 140 mg/dL High 70 - 100 mg/dL [facility] Comment on above: Test performed by gl ucose meter. Results may be 10%-15% lower than serum/plasma values. (CLIA ID [id number]) Interpretation and review of laboratory results Abnormal [facility] POCT Glucoseon 03-11-2022 Test Performed by [facility], [address] LAB Glucose [Mass/Vol] 121 mg/dL High 70 - 100 mg/dL [facility] Work Phone: Comment on above: Test performed by gl ucose meter. Results may be 10%-15% lower than serum/plasma values. (CLIA ID [id number]) Interpretation and review of laboratory results Abnormal [facility] Work Phone: Test Performed by [facility], [address] LAB [facility] Work Phone: Test Performed by [facility], [address] LAB Glucose [Mass/Vol] 139 mg/dL High 70 - 100 mg/dL [facility] Work Phone: Comment on above: Test performed by gl ucose meter. Results may be 10%-15% lower than serum/plasma values. (CLIA ID [id number]) Interpretation and review of laboratory results Abnormal [facility] Work Phone: Test Performed by [facility], [address] LAB [facility] Work Phone: POCT GlucoseOrdered By: Mil Marie on 03-11-2022 Glucose [Mass/Vol] 127 mg/dL High 70 - 100 mg/dL [facility] Work Phone: Comment on above: Test performed by gl ucose meter. Results may be 10%-15% lower than serum/plasma values. (CLIA ID [id number]) Interpretation and review of laboratory results Abnormal [facility] Work Phone: [facility] Work Phone: PROTIME/INR & PTTon 03-11-20 22 INR Coag (Bld) [Relative time] 5.0 {INR} Critically high [facility] Comment on above: Recommended Anticoag ulant [...] Interpretation and review of laboratory results Abnormal [facility] Test Performed by [facility], [address], [place], [place] [id number] [place] [address] LAB [facility] Protime AND APTTon 2 INR 5.0 Critically high 0.9-1.1 [facility] Comment on above: Result Comment: Rajiv [...] By: #### P T/AP, BMP3, HEMDF #### [facility] [address] [place] [address] aPTT Coag (Bld) [Time] 44.1 s High 20.0-30.5 [facility] Comment on above: NOTE: The therapeuti c time for Heparin anticoagulation, based on Xa activity inhibition, is an APTT of 46-80 seconds. Result Comment: NOTE : The therapeutic time for Heparin anticoagulation, based on Xa activity inhibition, is an APTT of 46-80 seconds. Performed By: #### P T/AP, BMP3, HEMDF #### [facility] [place] [facility] [employer] [facility] [address] [place] [address] PT Coag (PPP) [Time] 48.7 s High 9.0-12.0 [facility] Comment on above: . Result Comment: . Performed By: #### P T/AP, BMP3, HEMDF #### [facility] [address] [place] [address] SARS-CoV-2 Antigenon 022 SARS-CoV-2 Antigen Negative Normal Negative [facility] Comment on above: Result Comment: A negative result does not rule out the possibility of SARS-CoV-2 infection. NAAT-based methods should be considered for symptomatic patients presenting greater than seven days after onset of symptoms. Method: Lateral flow immunoassay. Fact sheets for healthcare providers and patients can be found at the following sites: https://www.fda.gov/media/092170/download https://www.fda.gov/media/546939/download Performed By: #### P T/AP, BMP3, HEMDF #### [facility] [place] [facility] [employer] [facility] [address] [place] [address] Glucose,Bedsideon 03-10-2022 Glucose [Mass/Vol] 137 mg/dL High 70-100 [facility] Comment on above: Result Comment: Test performed by glucose meter. Results may be 10%-15% lower than serum/plasma values. (CLIA ID [id number]) Performed By: #### P T/AP, BMP3, HEMDF #### [facility] [place] [facility] [employer] [facility] [address] [place] [address] Glucose [Mass/Vol] 98 mg/dL Normal 70-100 [facility] Comment on above: Result Comment: Test performed by glucose meter. Results may be 10%-15% lower than serum/plasma values. (CLIA ID [id number]) Performed By: #### P T/AP, BMP3, HEMDF #### [facility] [place] [facility] [employer] [facility] [address] [place] [address] Glucose [Mass/Vol] 143 mg/dL High 70-100 [facility] Comment on above: Result Comment: Test performed by glucose meter. Results may be 10%-15% lower than serum/plasma values. (CLIA ID [id number]) Performed By: #### B GLU #### [facility] [address] [place] [address] Glucose [Mass/Vol] 170 mg/dL High 70-100 [facility] Comment on above: Result Comment: Test performed by glucose meter. Results may be 10%-15% lower than serum/plasma values. (CLIA ID [id number]) Performed By: #### B GLU #### [facility] [address] [place] [address] POCT GlucoseOrdered By: Tristin Mayers on 03-10-2022 Glucose [Mass/Vol] 137 mg/dL High 70 - 100 mg/dL [facility] Comment on above: Test performed by gl ucose meter. Results may be 10%-15% lower than serum/plasma values. (CLIA ID [id number]) Interpretation and review of laboratory results Abnormal [facility] POCT Glucoseon 03-10-2022 Test Performed by [facility], [address] LAB Glucose [Mass/Vol] 98 mg/dL 70 - 100 mg/dL [facility] Work Phone: Comment on above: Test performed by ucose meter. Results may be 10%-15% lower than serum/plasma values. (CLIA ID [id number]) Test Performed by [facility], [address] LAB [facility] Work Phone: Test Performed by [facility], [address] LAB Glucose [Mass/Vol] 170 mg/dL High 70 - 100 mg/dL [facility] Work Phone: Comment on above: Test performed by gl ucose meter. Results may be 10%-15% lower than serum/plasma values. (CLIA ID [id number]) Interpretation and review of laboratory results Abnormal [facility] Work Phone: Test Performed by [facility], [address], [place], [place] [address] [facility] Work Phone: POCT GlucoseOrdered By: Mil Benitez on 03-10-2022 Glucose [Mass/Vol] 143 mg/dL High 70 - 100 mg/dL [facility] Work Phone: Comment on above: Test performed by gl ucose meter. Results may be 10%-15% lower than serum/plasma values. (CLIA ID [id number]) Interpretation and review of laboratory results Abnormal [facility] Work Phone: [facility] Work Phone: PROTIME/INR & PTTon 03-10-20 22 aPTT Coag (Bld) [Time] 40.6 s High 20 - 30.5 s [facility] Comment on above: NOTE: The therapeuti c time for Heparin anticoagulation, based on Xa activity inhibition, is an APTT of 46-80 seconds. INR Coag (Bld) [Relative time] 3.4 {INR} High [facility] Comment on above: Recommended Anticoag ulant [...] Interpretation and review of laboratory results Abnormal [facility] PT Coag (PPP) [Time] 34 s High 9 - 12 s [facility] Comment on above: . Test Performed by [facility], [address], [place], [place] [address] [facility] Protime AND APTTon 2 aPTT Coag (Bld) [Time] 40.6 s High 20.0-30.5 [facility] Comment on above: Result Comment: NOTE : The therapeutic time for Heparin anticoagulation, based on Xa activity inhibition, is an APTT of 46-80 seconds. Performed By: #### P T/AP, BMP3, HEMDF #### [facility] [address] [place] [address] INR 3.4 High 0.9-1.1 [facility] Comment on above: Result Comment: Rajiv [...] By: #### P T/AP, BMP3, HEMDF #### [facility] [address] [place] [address] PT Coag (PPP) [Time] 34.0 s High 9.0-12.0 [facility] Comment on above: Result Comment: . Performed By: #### P T/AP, BMP3, HEMDF #### [facility] [address] [place] [address] Basic Metabolic Panelon 09-06 29-2021 Anion gap [Moles/Vol] 4 mmol/L Normal 3-13 [facility] Comment on above: Performed By: #### P T/AP, BMP3, HEMDF #### [facility] [address] [place] [address] Calcium [Mass/Vol] 7.7 mg/dL Low 8.4-10.4 [facility] Comment on above: Performed By: #### P T/AP, BMP3, HEMDF #### [facility] [address] [place] [address] CO2 [Moles/Vol] 25 mmol/L Normal 22-30 [facility] Comment on above: Performed By: #### P T/AP, BMP3, HEMDF #### [facility] [address] [place] [address] Glucose [Mass/Vol] 84 mg/dL Normal 70-100 [facility] Comment on above: Performed By: #### P T/AP, BMP3, HEMDF #### [facility] [address] [place] [address] Urea nitrogen [Mass/Vol] 14 mg/dL Normal 9-20 [facility] Comment on above: Performed By: #### P T/AP, BMP3, HEMDF #### [facility] [address] [place] [address] Creatinine [Mass/Vol] 0.85 mg/dL Normal 0.52-1.25 [facility] Comment on above: Performed By: #### P T/AP, BMP3, HEMDF #### [facility] [address] [place] [address] GFR/1.73 sq M.predicted among blacks MDRD (S/P/Bld) [Vol rate/Area] 80.1 mL/min/{1.73_m2} Normal >60 [facility] Comment on above: Performed By: #### P T/AP, BMP3, HEMDF #### [facility] [address] [place] [address] GFR/1.73 sq M.predicted among non-blacks MDRD (S/P/Bld) [Vol rate/Area] 69.1 mL/min/{1.73_m2} Normal >60 [facility] Comment on above: Result Comment: KDIG [...] By: #### P T/AP, BMP3, HEMDF #### [facility] [address] [place] [address] Chloride [Moles/Vol] 106 mmol/L Normal 98-107 [facility] Comment on above: Performed By: #### P T/AP, BMP3, HEMDF #### [facility] [address] [place] [address] Potassium [Moles/Vol] 3.9 mmol/L Normal 3.5-5.1 [facility] Comment on above: Performed By: #### P T/AP, BMP3, HEMDF #### [facility] [address] [place] [address] Sodium [Moles/Vol] 135 mmol/L Normal 135-145 [facility] Comment on above: Performed By: #### P T/AP, BMP3, HEMDF #### [facility] [address] [place] [address] Basic Metabolic Panel w/ Ref uriel to MGon 03-09-2022 Anion gap [Moles/Vol] 4 mmol/L 3 - 13 mmol/L [facility] Calcium [Mass/Vol] 7.7 mg/dL Low 8.4 - 10. 4 mg/dL [facility] Chloride [Moles/Vol] 106 mmol/L 98 - 107 mmol/L [facility] CO2 [Moles/Vol] 25 mmol/L 22 - 30 mmol/L [facility] Creatinine [Mass/Vol] 0.85 mg/dL 0.52 - 1.25 mg/dL [facility] EGFR IF NonAfrican Vietnamese 69.1 mL/min 60 - PINF mL/min [facility] [...] [Mass/Vol] 84 mg/dL 70 - 100 mg/dL [facility] Interpretation and review of laboratory results Abnormal [facility] Potassium [Moles/Vol] 3.9 mmol/L 3.5 - 5.1 mmol/L [facility] Sodium [Moles/Vol] 135 mmol/L 135 - 145 mmol/L [facility] Urea nitrogen (BldV) [Mass/Vol] 14 mg/dL 9 - 20 mg/dL [facility] Test Performed by [facility], [address], [place], [place] [id number] [place] [address] LAB [facility] CBC with Auto Differentialon 03-09-2022 [...] Low 11.7 - 16 g/dL [facility] Interpretation and review of laboratory results [...] 10*3/uL 3.6 - 10.7 10*3/uL [facility] Test Performed by [facility], [address] [place], [place] [id number] [place] [address] LAB [facility] Glucose,Bedsideon 03-09-2022 Glucose [Mass/Vol] 186 mg/dL [facility] [address] Comment on above: Result Comment: Test performed by glucose meter. Results may be 10%-15% lower than serum/plasma values. (CLIA ID [id number]) Performed By: #### P T/AP, BMP3, HEMDF #### [facility] [address] [place] [address] Glucose [Mass/Vol] 139 mg/dL [address] Comment on above: Result Comment: Test performed by glucose meter. Results may be 10%-15% lower than serum/plasma values. (CLIA ID [id number]) Performed By: #### P T/AP, BMP3, HEMDF #### [facility] [address] [place] [address] Glucose [Mass/Vol] 160 mg/dL [facility] [address] Comment on above: Result Comment: Test performed by glucose meter. Results may be 10%-15% lower than serum/plasma values. (CLIA ID [id number]) Performed By: #### P T/AP, BMP3, HEMDF #### [facility] [address] [place] [address] Glucose [Mass/Vol] 96 mg/dL Normal 70-100 [facility] Comment on above: Result Comment: Test performed by glucose meter. Results may be 10%-15% lower than serum/plasma values. (CLIA ID [id number]) Performed By: #### B GLU #### [facility] [address] [place] [address] Hemoglobin A1Con 03-09-2022 Glucose [Mass/Vol] 151 mg/dL Normal [facility] Comment on above: Performed By: #### B GLU #### [facility] [address] [place] [address] HbA1c (Bld) [Mass fraction] 6.9 % Abnormal [facility] Comment on above: Result Comment: Norm al less than 5.7% Prediabetes 5.7% to 6.4% Diabetes 6.5% or higher --HgbA1C levels may not be accurate in patients who have renal disease, received recent blood transfusions, are anemic, or who have dyshemoglobinemia. Performed By: #### B GLU #### [facility] [address] [place] [address] Hemoglobin A1con 03-09-2022 HbA1c (Bld) [Mass fraction] 6.9 % Abnormal [facility] Comment on above: Normal less than 5.7 % Prediabetes 5.7% to 6.4% Diabetes 6.5% or higher --HgbA1C levels may not be accurate in patients who have renal disease, received recent blood transfusions, are anemic, or who have dyshemoglobinemia. Interpretation and review of laboratory results Abnormal [facility] Magnesium [Mass/Vol] 151 mg/dL [facility] Test Performed by [facility], [address] [place] [address] [facility] Hemogram w/ Autodiffon 03-09 Abs Baso Cnt 0.0 10*3/uL Normal 0.0-0.2 [facility] Comment on above: Performed By: #### P T/AP, BMP3, HEMDF #### [facility] [address] [place] [address] Abs Neutrophile Cnt 4.1 10*3/uL Normal 1.8-7.0 [facility] Comment on above: Performed By: #### P T/AP, BMP3, HEMDF #### [facility] [address] [place] [address] Basophils/100 WBC (Bld) 0.6 % Normal 0.0-2.0 [facility] Comment on above: Performed By: #### P T/AP, BMP3, HEMDF #### [facility] [address] [place] [address] Eosinophils (Bld) [#/Vol] 0.1 10*3/uL Normal 0.0-0.5 [facility] Comment on above: Performed By: #### P T/AP, BMP3, HEMDF #### [facility] [address] [place] [address] Eosinophils/100 WBC (Bld) 1.6 % Normal 1.0-6.0 [facility] Comment on above: Performed By: #### P T/AP, BMP3, HEMDF #### [facility] [address] [place] [address] Erythrocyte distribution width (RBC) [Ratio] 13.9 % Normal 11.5-14.5 [facility] Comment on above: Performed By: #### P T/AP, BMP3, HEMDF #### [facility] [address] [place] [address] Granulocytes/100 WBC (Bld) 74.6 % Normal 40.0-80.0 [facility] Comment on above: Performed By: #### P T/AP, BMP3, HEMDF #### [facility] [address] [place] [address] Hematocrit (Bld) [Volume fraction] 31.8 % Low 35.0-47.0 [facility] Comment on above: Performed By: #### P T/AP, BMP3, HEMDF #### [facility] [address] [place] [address] Hemoglobin (Bld) [Mass/Vol] 11.2 g/dL Low 11.7-16.0 [facility] Comment on above: Performed By: #### P T/AP, BMP3, HEMDF #### [facility] [address] [place] [address] Lymphocytes (Bld) [#/Vol] 0.9 10*3/uL Low 1.0-4.3 [facility] Comment on above: Performed By: #### P T/AP, BMP3, HEMDF #### [facility] [address] [place] [address] Lymphocytes/100 WBC (Bld) 16.3 % Low 20.0-40.0 [facility] Comment on above: Performed By: #### P T/AP, BMP3, HEMDF #### [facility] [address] [place] [address] MCH (RBC) [Entitic mass] 32.2 pg Normal 26.0-34.0 [facility] Comment on above: Performed By: #### P T/AP, BMP3, HEMDF #### [facility] [address] [place] [address] MCHC 35.2 % Normal 32.0-36.0 [facility] Comment on above: Performed By: #### P T/AP, BMP3, HEMDF #### [facility] [address] [place] [address] MCV (RBC) [Entitic vol] 91.4 fL Normal 79.0-98.0 [facility] Comment on above: Performed By: #### P T/AP, BMP3, HEMDF #### [facility] [address] [place] [address] Monocytes (Bld) [#/Vol] 0.4 10*3/uL Normal 0.0-0.8 [facility] Comment on above: Performed By: #### P T/AP, BMP3, HEMDF #### [facility] [address] [place] [address] Monocytes/100 WBC (Bld) 6.9 % Normal 2.0-10.0 [facility] Comment on above: Performed By: #### P T/AP, BMP3, HEMDF #### [facility] [address] [place] [address] Platelet mean volume (Bld) [Entitic vol] 8.4 fL Normal 7.4-12.4 [facility] Comment on above: Result Comment: MPV is a calculated measurement using platelet volume ratio. Performed By: #### P T/AP, BMP3, HEMDF #### [facility] [address] [place] [address] Platelets (Bld) [#/Vol] 102 10*3/uL Low 140-440 [facility] Comment on above: Performed By: #### P T/AP, BMP3, HEMDF #### [facility] [address] [place] [address] RBC (Bld) [#/Vol] 3.48 10*6/uL Low 3.80-5.20 [facility] Comment on above: Performed By: #### P T/AP, BMP3, HEMDF #### [facility] [address] [place] [place] [address] WBC (Bld) [#/Vol] 5.5 10*3/uL Normal 3.6-10.7 [facility] Comment on above: Performed By: #### P T/AP, BMP3, HEMDF #### [facility] [address] [place] [address] POCT GlucoseOrdered By: Blayne Villalobos on 03-09-2022 Glucose [Mass/Vol] 186 mg/dL High 70 - 100 mg/dL [facility] Work Phone: Comment on above: Test performed by gl ucose meter. Results may be 10%-15% lower than serum/plasma values. (CLIA ID [id number]) Interpretation and review of laboratory results Abnormal [facility] Work Phone: [facility] Work Phone: POCT Glucoseon 03-09-2022 Test Performed by [facility], [address] [place], [place] [id number] [place] [address] LAB Glucose [Mass/Vol] 139 mg/dL High 70 - 100 mg/dL [facility] Work Phone: Comment on above: Test performed by gl ucose meter. Results may be 10%-15% lower than serum/plasma values. (CLIA ID [id number]) Interpretation and review of laboratory results Abnormal [facility] Work Phone: Test Performed by [facility], [address] LAB [facility] Work Phone: Test Performed by [facility], [address], [address] LAB Glucose [Mass/Vol] 96 mg/dL 70 - 100 mg/dL [facility] Work Phone: Comment on above: Test performed by gl ucose meter. Results may be 10%-15% lower than serum/plasma values. (CLIA ID [id number]) Test Performed by [facility], [address], [address] LAB [facility] Work Phone: POCT GlucoseOrdered By: Ines Choi on 03-09-2022 Glucose [Mass/Vol] 160 mg/dL High 70 - 100 mg/dL [facility] Comment on above: Test performed by gl ucose meter. Results may be 10%-15% lower than serum/plasma values. (CLIA ID [id number]) Interpretation and review of laboratory results Abnormal [facility] PROTIME/INR & PTTon 03-09-20 22 aPTT Coag [...] review of laboratory results Abnormal [facility] PT Coag (PPP) [Time] 24.5 s High 9 - 12 s [facility] Comment on above: . Test Performed by [facility], [address] [place], [place] [id number] [place] [address] LAB [facility] Protime AND APTTon aPTT Coag (Bld) [Time] 40.6 s High 20.0-30.5 [facility] Comment on above: Result Comment: NOTE : The therapeutic time for Heparin anticoagulation, based on Xa activity inhibition, is an APTT of 46-80 seconds. Performed By: #### P T/AP, BMP3, HEMDF #### [facility] [address] [place] [address] INR 2.4 High 0.9-1.1 [facility] Comment on above: Result Comment: Rajiv [...] By: #### P T/AP, BMP3, HEMDF #### [facility] [address] [place] [address] PT Coag (PPP) [Time] 24.5 s High 9.0-12.0 [facility] Comment on above: Result Comment: . Performed By: #### P T/AP, BMP3, HEMDF #### [facility] [address] [place] [address] TSHon 03-09-2022 TSH Qn 3.493 u[IU]/mL 0.465 - 4.68 u[IU]/mL [facility] Test Performed by [facility], [address] [place], [place] [id number] [place] [address] LAB [facility] Thyroid Stim. Hormoneon 02-20 Thyroid Stim. Hormone 3.493 u[IU]/mL Normal 0.465-4.68 0 [facility] Comment on above: Performed By: #### B GLU #### [facility] [address] [place] [address] Vancomycinon 03-09-2022 Vancomycin 12.3 ug/mL Low 15.0-20.0 [facility] Comment on above: Result Comment: . Performed By: #### P T/AP, BMP3, HEMDF #### [facility] [address] [place] [address] Vancomycin Level, Randomon 0 03-09-2022 Interpretation and review of laboratory results Abnormal [facility] Vancomycin 12.3 ug/mL Low 15 - 20 ug/mL [facility] Comment on above: . Test Performed by [facility], [address] [place] [address] [facility] Basic Metabolic Panelon 02-20 Anion gap [Moles/Vol] 4 mmol/L Normal 3-13 [facility] Comment on above: Performed By: #### P T/AP, BMP3, HEMDF #### [facility] [address] [place] [address] Calcium [Mass/Vol] 8.4 mg/dL Normal 8.4-10.4 [facility] Comment on above: Performed By: #### P T/AP, BMP3, HEMDF #### [facility] [address] [place] [address] CO2 [Moles/Vol] 27 mmol/L Normal 22-30 [facility] Comment on above: Performed By: #### P T/AP, BMP3, HEMDF #### [facility] [address] [place] [address] Creatinine [Mass/Vol] 0.95 mg/dL Normal 0.52-1.25 [facility] Comment on above: Performed By: #### P T/AP, BMP3, HEMDF #### [facility] [address] [place] [address] GFR/1.73 sq M.predicted among blacks MDRD (S/P/Bld) [Vol rate/Area] 70.0 mL/min/{1.73_m2} Normal >60 [facility] Comment on above: Performed By: #### P T/AP, BMP3, HEMDF #### [facility] [address] [place] [address] GFR/1.73 sq M.predicted among non-blacks MDRD (S/P/Bld) [Vol rate/Area] 60.4 mL/min/{1.73_m2} Normal >60 [facility] Comment on above: Result Comment: KDIG [...] By: #### P T/AP, BMP3, HEMDF #### [facility] [address] [place] [address] Glucose [Mass/Vol] 117 mg/dL High 70-100 [facility] Comment on above: Performed By: #### P T/AP, BMP3, HEMDF #### [facility] [address] [place] [address] Urea nitrogen [Mass/Vol] 16 mg/dL Normal 9-20 [facility] Comment on above: Performed By: #### P T/AP, BMP3, HEMDF #### [facility] [address] [place] [address] Chloride [Moles/Vol] 102 mmol/L Normal 98-107 [facility] Comment on above: Performed By: #### P T/AP, BMP3, HEMDF #### [facility] [address] [place] [address] Potassium [Moles/Vol] 4.5 mmol/L Normal 3.5-5.1 [facility] Comment on above: Performed By: #### P T/AP, BMP3, HEMDF #### [facility] [address] [place] [address] Sodium [Moles/Vol] 133 mmol/L Low 135-145 [facility] Comment on above: Performed By: #### P T/CLAIRE RENE, HEMDF #### [facility] [address] [place] [address] Anion gap [Moles/Vol] 4 mmol/L 3 - 13 mmol/L [facility] Calcium [Mass/Vol] 8.4 mg/dL 8.4 - 10. 4 mg/dL [facility] Chloride [Moles/Vol] 102 mmol/L 98 - 107 mmol/L [facility] CO2 [Moles/Vol] 27 mmol/L 22 - 30 mmol/L [facility] Creatinine [Mass/Vol] 0.95 mg/dL 0.52 - 1.25 mg/dL [facility] EGFR IF NonAfrican Vietnamese 60.4 mL/min 60 - PINF mL/min [facility] [...] - 20 mg/dL [facility] Test Performed by [facility], [address], [place], [place] [address] [facility] CBC with Auto Differentialon 03-08-2022 [...] [Mass/Vol] 12.6 g/dL 11.7 - 16 g/dL [facility] Interpretation and review of laboratory results [...] - 10.7 10*3/uL [facility] Test Performed by [facility], 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 Performed By: #### P T/AP, BMP3, HEMDF #### [facility] [address] [place] [address] Bacteria Loaded Abnormal Negative [facility] Comment on above: Result Comment: . Performed By: #### P T/AP, BMP3, HEMDF #### [facility] [address] [place] [address] Bilirubin,Urine Negative Normal Negative [facility] Comment on above: Result Comment: . Performed By: #### P T/AP, BMP3, HEMDF #### [facility] [address] [place] [address] Color (U) Light-Yellow Normal Lt. Yellow [facility] Comment on above: Result Comment: . Performed By: #### P T/AP, BMP3, HEMDF #### [facility] [address] [place] [address] Glucose Ql (U) Normal Normal Normal (<70) [facility] Comment on above: Result Comment: . Performed By: #### P T/AP, BMP3, HEMDF #### [facility] [address] [place] [address] Ketone,Urine Negative Normal Negative [facility] Comment on above: Result Comment: . Performed By: #### P T/AP, BMP3, HEMDF #### [facility] [address] [place] [address] Leukocytes,Urine 500 Elvi/uL Abnormal Negative [facility] Comment on above: Result Comment: . Performed By: #### P T/AP, BMP3, HEMDF #### [facility] [address] [place] [address] Mucous Threads Few Normal Negative [facility] Comment on above: Result Comment: . Performed By: #### P T/AP, BMP3, HEMDF #### [facility] [address] [place] [address] Nitrites,Urine Positive Abnormal Negative [facility] Comment on above: Result Comment: . Performed By: #### P T/AP, BMP3, HEMDF #### [facility] [address] [place] [address] Non-Squamous Epithelial < 1 Abnormal Negative [facility] Comment on above: Result Comment: . Performed By: #### P T/AP, BMP3, HEMDF #### [facility] [address] [place] [address] Occult Blood,Urine 0.06 mg/dL Abnormal Negative [facility] Comment on above: Result Comment: . Performed By: #### P T/AP, BMP3, HEMDF #### [facility] [address] [place] [address] pH,Urine 6.0 Normal 5.0-8.0 [facility] Comment on above: Result Comment: . Performed By: #### P T/AP, BMP3, HEMDF #### [facility] [address] [place] [address] Protein (U) [Mass/Vol] 20 mg/dL Abnormal Negative [facility] Comment on above: Result Comment: . Performed By: #### P T/AP, BMP3, HEMDF #### [facility] [address] [place] [address] RBC, Urine 3 - 5 Abnormal 0-2 [facility] Comment on above: Result Comment: . Performed By: #### P T/AP, BMP3, HEMDF #### [facility] [address] [place] [address] Specific [place],Urine 1.014 Normal 1.005 - 1.030 [facility] Comment on above: Result Comment: . Performed By: #### P T/AP, BMP3, HEMDF #### [facility] [address] [place] [address] Squamous Epithelial 0 - 2 Normal 3-5 [facility] Comment on above: Result Comment: . Performed By: #### P T/AP, BMP3, HEMDF #### [facility] [address] [place] [address] Urobilinogen,Urine Normal Normal Normal (0-1) [facility] Comment on above: Result Comment: . Performed By: #### P T/AP, BMP3, HEMDF #### [facility] [address] [place] [address] WBC, Urine 51 - 100 Abnormal 0-5 [facility] Comment on above: Result Comment: . Performed By: #### P T/AP, BMP3, HEMDF #### [facility] [address] [place] [address] ED Provider Noteon 2 ED Provider Note [...] she did have a fall at her assisted this morning but did not hit her [...] mouth daily CALCIUM CARBONATE 600MG W/ VITAMIN [id number] Med cyanocobalamin 1000 MCG/ML injection Inject 1,000 [...] use: Never Sexual activity: Not Currently SCREENINGS [place] Coma Scale Eye Opening: Spontaneous Best Verbal Response: Oriented Best Motor Response: Obeys commands [place] Coma Scale Score: 15 PHYSICAL EXAM (up [...] Exam Kaycee (more content not included)... Normal [facility] Glucose,Bedsideon 03-08-2022 Glucose [Mass/Vol] 112 mg/dL High 70-100 [facility] Comment on above: Result Comment: Test performed by glucose meter. Results may be 10%-15% lower than serum/plasma values. (CLIA ID [id number]) Performed By: #### P T/AP, BMP3, HEMDF #### [facility] [address] [place] [place] [address] Glucose [Mass/Vol] 81 mg/dL Normal 70-100 [facility] Comment on above: Result Comment: Test performed by glucose meter. Results may be 10%-15% lower than serum/plasma values. (CLIA ID [id number]) Performed By: #### P T/AP, BMP3, HEMDF #### [facility] [address] [place] [address] Hemogram w/ Autodiffon 03-08 Abs Baso Cnt 0.0 10*3/uL Normal 0.0-0.2 [facility] Comment on above: Performed By: #### P T/AP, BMP3, HEMDF #### [facility] [address] [place] [place] [address] Abs Neutrophile Cnt 7.5 10*3/uL High 1.8-7.0 [facility] Comment on above: Performed By: #### P T/AP, BMP3, HEMDF #### [facility] [address] [place] [address] Basophils/100 WBC (Bld) 0.1 % Normal 0.0-2.0 [facility] Comment on above: Performed By: #### P T/AP, BMP3, HEMDF #### [facility] [address] [place] [address] Eosinophils (Bld) [#/Vol] 0.0 10*3/uL Normal 0.0-0.5 [facility] Comment on above: Performed By: #### P T/AP, BMP3, HEMDF #### [facility] [address] [place] [address] Eosinophils/100 WBC (Bld) 0.2 % Low 1.0-6.0 [facility] Comment on above: Performed By: #### P T/AP, BMP3, HEMDF #### [facility] [address] [place] [address] Erythrocyte distribution width (RBC) [Ratio] 14.1 % Normal 11.5-14.5 [facility] Comment on above: Performed By: #### P T/AP, BMP3, HEMDF #### [facility] [address] [place] [address] Granulocytes/100 WBC (Bld) 86.4 % High 40.0-80.0 [facility] Comment on above: Performed By: #### P T/AP, BMP3, HEMDF #### [facility] [address] [place] [address] Hematocrit (Bld) [Volume fraction] 36.9 % Normal 35.0-47.0 [facility] Comment on above: Performed By: #### P T/AP, BMP3, HEMDF #### [facility] [address] [place] [address] Hemoglobin (Bld) [Mass/Vol] 12.6 g/dL Normal 11.7-16.0 [facility] Comment on above: Performed By: #### P T/AP, BMP3, HEMDF #### [facility] [address] [place] [address] Lymphocytes (Bld) [#/Vol] 0.7 10*3/uL Low 1.0-4.3 [facility] Comment on above: Performed By: #### P T/AP, BMP3, HEMDF #### [facility] [address] [place] [address] Lymphocytes/100 WBC (Bld) 8.3 % Low 20.0-40.0 [facility] Comment on above: Performed By: #### P T/AP, BMP3, HEMDF #### [facility] [address] [place] [address] MCH (RBC) [Entitic mass] 31.9 pg Normal 26.0-34.0 [facility] Comment on above: Performed By: #### P T/AP, BMP3, HEMDF #### [facility] [address] [place] [address] MCHC 34.3 % Normal 32.0-36.0 [facility] Comment on above: Performed By: #### P T/AP, BMP3, HEMDF #### [facility] [address] [place] [address] MCV (RBC) [Entitic vol] 93.2 fL Normal 79.0-98.0 [facility] Comment on above: Performed By: #### P T/AP, BMP3, HEMDF #### [facility] [address] [place] [address] Monocytes (Bld) [#/Vol] 0.4 10*3/uL Normal 0.0-0.8 [facility] Comment on above: Performed By: #### P T/AP, BMP3, HEMDF #### [facility] [address] [place] [address] Monocytes/100 WBC (Bld) 5.0 % Normal 2.0-10.0 [facility] Comment on above: Performed By: #### P T/AP, BMP3, HEMDF #### [facility] [address] [place] [address] Platelet mean volume (Bld) [Entitic vol] 8.9 fL Normal 7.4-12.4 [facility] Comment on above: Result Comment: MPV is a calculated measurement using platelet volume ratio. Performed By: #### P T/AP, BMP3, HEMDF #### [facility] [address] [place] [address] Platelets (Bld) [#/Vol] 132 10*3/uL Low 140-440 [facility] Comment on above: Performed By: #### P T/AP, BMP3, HEMDF #### [facility] [address] [place] [address] RBC (Bld) [#/Vol] 3.96 10*6/uL Normal 3.80-5.20 [facility] Comment on above: Performed By: #### P T/AP, BMP3, HEMDF #### [facility] [address] [place] [address] WBC (Bld) [#/Vol] 8.7 10*3/uL Normal 3.6-10.7 [facility] Comment on above: Performed By: #### P T/AP, BMP3, HEMDF #### [facility] [address] [place] [address] Lactate, Sepsison 03-08-2022 Lactate [Moles/Vol] 1.7 mmol/L 0.7 - 2 mmol/L [facility] Test Performed by [facility], [address] LAB [facility] Lactic Acid, Sepsison 2021 Lactate [Moles/Vol] 1.7 mmol/L Normal 0.7-2.0 [facility] Comment on above: Performed By: #### P T/AP, BMP3, HEMDF #### [facility] [address] [place] [address] POCT GlucoseOrdered By: Jossy Moncada on 03-08-2022 Glucose [Mass/Vol] 112 mg/dL High 70 - 100 mg/dL [facility] Work Phone: Comment on above: Test performed by ucose meter. Results may be 10%-15% lower than serum/plasma values. (CLIA ID [id number]) Interpretation and review of laboratory results Abnormal [facility] Work Phone: [facility] Work Phone: POCT Glucoseon 03-08-2022 Test Performed by [facility], [address] [place], [place] [id number] [place] [address] LAB Test Performed by [facility], [address] LAB POCT GlucoseOrdered By: Yaakov Whitehead on 03-08-2022 Glucose [Mass/Vol] 81 mg/dL 70 - 100 mg/dL [facility] Work Phone: Comment on above: Test performed by gl ucose meter. Results may be 10%-15% lower than serum/plasma values. (CLIA ID [id number]) [facility] Work Phone: Prothrombin Timeon 2 INR 2.3 High 0.9-1.1 [facility] Comment on above: Result Comment: Rajiv [...] prevent Myocardial Infarction Performed By: #### P T/ANJU, CLAIRE, HEMDF #### [facility] [address] [place] [address] PT Coag (PPP) [Time] 23.8 s High 9.0-12.0 [facility] Comment on above: Result Comment: . Performed By: #### P T/ANJU, BMP3, HEMDF #### [facility] [address] [place] [address] Protime-INRon 03-08-2022 INR Coag (Bld) [Relative time] 2.3 {INR} High [facility] Comment on above: Recommended Anticoag ulant [...] Interpretation and review of laboratory results Abnormal [facility] PT Coag (PPP) [Time] 23.8 s High 9 - 12 s [facility] Comment on above: . Test Performed by [facility], [address], [address] LAB [facility] Urinalysison 03-08-2022 Appearance (U) [...] /[HPF] [facility] Comment on above: . Specific [place], Urine 1.014 [facility] Comment on above: . Squam Epithel, UA 0-2 3 - 5 /[HPF] [facility] Comment on above: . Urobilinogen, Urine Normal Normal (0-1) mg/dL [facility] Comment on above: . WBC, UA /[HPF] Abnormal 0 - 5 /[HPF] [facility] Comment on above: . Test Performed by [facility], [address], [address] LAB [facility] XR ANKLE LEFT (MIN 3 VIEWS)o n 03-08-2022 Patient Name: RANDOLPH HUNTER Diagnostic Radiology ACCESSION EXAM DATE/TIME PROCEDURE ORDERING PROVIDER [id number] 03/08/2022 16:53 EDT CR Ankle 3+ Views Left JOHN LEZAMA LOUANN B CPT code 27051 Reason For Exam (CR Ankle 3+ Views [...] arterial atherosclerotic changes. Report Dictated on Workstation: [id number] ContactOSENPAX --- Final --- Dictating Physician: HARPER ANTONIO DO, I Signed Date and Time: 03/08/2022 5:15 pm Signed by: HARPER ANTONIO DO, I Transcribed Date and Time: 03/08/2022 5:16 Harper Patel DO - 03/08/2022 Patient Name: RANDOLPH HUNTER Diagnostic Radiology ACCESSION EXAM DATE/TIME PROCEDURE ORDERING PROVIDER [id number] 03/08/2022 16:53 EDT CR Ankle 3+ Views Left JOHN LEZAMA LOUANN B CPT code 42448 Reason For Exam (CR Ankle 3+ Views [...] I Transcribed Date and Time: 03/08/2022 5:16 [facility] Work Phone: Radiology Study observation (narrative) [facility] Work Phone: XR ANKLE LEFT (MIN 3 VIEWS)O rdered By: Harper Antonio on 03-08-2022 [facility] Work Phone: PT panel Coag (PPP)on 2021 INR Coag (Bld) [Relative time] 2.3 (EXT) 2.0 - 3.0 [facility] INRon 10-29-2021 INR Coag (Bld) [Relative time] [facility] PT panel Coag (PPP)on 2021 INR Coag (Bld) [Relative time] 2.1 {INR} [facility] DXA-AXIAL SKELETONon 022 [facility] PT panel Coag (PPP)on 2021 INR Coag (Bld) [Relative time] 2.1(EXT) 2.0 - 3.0 [facility] PT panel Coag (PPP)on 2021 INR Coag (Bld) [Relative time] 2.6(EXT) 2.0 - 3.0 [facility] PT panel Coag (PPP)on 2021 INR Coag (Bld) [Relative time] 2.2 (ext) [facility] Basophil percentageon 2021 Bilirubin [Mass/Vol] 0.40 mg/dL 0.20-1.00 [facility] Work Phone: Comment on above: For patients on eltr ombopag therapy, use of Dimension [place] TBIL is not recommended. Cholesterol [Mass/Vol] 142 mg/dL <200 [facility] Comment on above: <200 mg/dL Desirable 200-240 mg/dL Borderline >240 mg/dL High Risk Protein [Mass/Vol] 7.5 g/dL 6.4-8.2 [facility] Work Phone: Triglyceride [Mass/Vol] 156 mg/dL [facility] Comment on above: The drugs N-Acetylcy steine and Metamizole may falsely depress this assay.Serum Triglycerides Reference Interval Normal <150 mg/dL Borderline high 150 - 199 mg/dL High 200 - 499 mg/dL Very High > or = 500 mg/dL Direct bilirubinon Bilirubin.direct [Mass/Vol] 0.12 mg/dL 0.00-0.30 [facility] Work Phone: LIPID PANEL (EXTERNAL)on HDC-L 41 mg/dL 41 mg/dL [facility] LDL Chol, calculated 31 MG/DL 130 MG/DL [facility] Laboratory - Chemistry and C hemistry - challengeon 09-16-2021 ALP [Catalytic activity/Vol] 58 U/L 45-117 [facility] Work Phone: ALT [Catalytic activity/Vol] 18 U/L 13-56 [facility] Work Phone: Globulin (S) [Mass/Vol] 4.1 g/dL 2.2-4.2 [facility] Work Phone: MICROALBUMIN/CREATININE UR W RATIO (EXTERNAL)on 09-16-2021 Albumin/Creat Ratio 9.4 [facility] Creatinine Urine 158 [facility] Microalbumin, Random urine 14.9 [facility] No Panel Informationon 09-16 Urine Microalbumin/Creati nine Ratio 9.4 mg/g CRE <30 [facility] Work Phone: Serum or plasma albumin aura urement (mass/volume)on 09-16-2021 Albumin [Mass/Vol] 3.4 g/dL 3.2-5.0 [facility] Work Phone: Serum or plasma cholesterol in HDL measurement (mass/volume)on 09-16-2021 Cholesterol in HDL [Mass/Vol] 41 mg/dL [facility] Work Phone: Comment on above: The drugs N-Acetylcy steine and Metamizole may falsely depress this assay. Reference Range HDL <40 mg/dL Low HDL Cholesterol HDL >or= 60 mg/dL High HDL Cholesterol Serum or plasma cholesterol in VLDL measurement (mass/volume)on 09-16-2021 Cholesterol in VLDL [Mass/Vol] 31 mg/dL 5-40 [facility] Work Phone: Serum or plasma low density lipoprotein (LDL) cholesterol measurement (mass/volume)on 09-16-2021 Cholesterol in LDL [Mass/Vol] 70 mg/dL 0-130 [facility] Work Phone: Thin prep Papanicolaou smear with manual screeningon 09-16-2021 Thin prep Papanicolaou smear with manual screening 22 U/L 15-37 [facility] Work Phone: Thin prep Papanicolaou smear with manual screening 14.9 mg/L NO RANGE EST. [facility] Work Phone: Urine creatinine measurement (mass/volume)on 09-16-2021 Creatinine (U) [Mass/Vol] 158.00 mg/dL NO RANGE EST. [facility] Work Phone: PT panel Coag (PPP)on 2021 INR Coag (Bld) [Relative time] 1.9 (EXT) 2.0 - 3.0 [facility] XR Shoulder - right 3 Viewso n 01-29-2021 IMPRESSION: 1. Stable mild acromioclavicular degenerative changes. Lodging Facilities Attendant: CEM Transcribe Date/Time: Jan 29 2021 2:19P Dictated by : MIN GARCIA MD This examination was interpreted and the report reviewed and electronically signed by: IMN GARCIA MD on Jan 29 2021 2:21PM EST DIVISION OF RADIOLOGY * * *Final Report* [...] mild hypertrophic osteoarthrosis. DIVISION OF RADIOLOGY Provider, [facility] - 01/29/2021 * * *Final Report* [...] IMPRESSION: 1. Stable mild acromioclavicular degenerative changes. Lodging Facilities Attendant: CEM Transcribe Date/Time: Jan 29 2021 2:19P Dictated by : MIN GARCIA MD This examination was interpreted and the report reviewed and electronically signed by: MIN GARCIA MD on Jan 29 2021 2:21PM EST [facility] Radiology Study observation (narrative) [facility] XR Shoulder - right 3 ViewsO rdered By: [facility]cf Provider on 01-29-2021 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 ThursdayWe and Thursday alternating with 2.5 mg on [...] of metoprolol.Electronically Signed:David Erwin MDFebruary 2017 1:17 [facility]: Lin Ashley MD 08/12/2017 1:17 [...] programs in your area.Referring Provider: DAVID ERWIN [[id number]]Allergies As of Date: 08/12/2017 Noted Allergy ReactionPHENERGAN [...] [I10]Order(s):metoprolol succinate ER (TOPROL XL) 100 mg [id number] 1 tablet by mouth once daily.Disp: 90 [...] the following areas and commit to making technician terminal and repeater changes. EAT A WHOLE FOOD, PLANT BASED [...] on file.Classic SmartForms filed during this visit:Extended [employer] EnergysEncounter Number: [id number] Status:Closed by DAVID ERWIN MD on 08/12/17 Normal [facility] [facility] PROGRESSon 08-12-2017 PROGRESS HNO ID: [id number] thor: David Raya: (none)Author Type: PhysicianType: Progress [...] - metBeta nisha for ASHD with prior HI or prior LVEF<40 (NQF 0070) - metBeta [...] with treatment plan.This note was generated using [employer] voice recognition system, and theremay be some [...] of metoprolol.Electronically Signed:David Erwin MDFebruary 2017 1:17 [facility]: Vishnu Coleman MD [facility] OBSOLETEon 04-06-2017 OBSOLETE Refill (AGCARDWST) -RANDOLPH HUNTER ([id number]) 1950 [facility] Hqzdvnqmkt11/16/17 DAVID ERWIN During your visit today, we recorded the following information about you:Gui Gallego, RN, RN 04/06/2017 1:59 PM SignedPatient phones requesting refills as follows:Pending Prescriptions Disp Refills METOPROLOL SUCCINATE ER 50 MG TABLET,EXTENDED RELEASE 24 HR 135 tablet 3 Sig: Take 1.5 tablets by mouth once daily. IRA: No Please review and advise.Gui ReenaFeng has been identified by name and date [...] Status:Closed by GUI GALLEGO on 04/06/17 Normal [facility] Vital Signs Date Time Vital Sign Value Performing Clinician Zack goncalves 10-10-2024 13:29-0400 Body temperature 96.8 [degF] Travis Patterson APRN.CLASSIFICATION CONTROL CLERK Work Phone: [facility] 10-10-2024 13:29-0400 Diastolic blood pressure 57 mm[Hg] Travis Patterson APRN.CLASSIFICATION CONTROL CLERK Work Phone: [facility] 10-10-2024 13:29-0400 Heart rate 66 /min Travis Patterson APRN.CLASSIFICATION CONTROL CLERK Work Phone: [facility] 10-10-2024 13:29-0400 Respiratory rate 16 /min Travis Patterson APRN.CLASSIFICATION CONTROL CLERK Work Phone: [facility] 10-10-2024 13:29-0400 SaO2% (BldA) [Mass fraction] 97 % Travis Patterson APRN.CLASSIFICATION CONTROL CLERK Work Phone: [facility] 10-10-2024 13:29-0400 Systolic blood pressure 120 mm[Hg] Travis Patterson APRN.CLASSIFICATION CONTROL CLERK Work Phone: [facility] 10-05-2024 16:09-0400 Body temperature 97.81 [degF] Travis Patterson APRN.CLASSIFICATION CONTROL CLERK Work Phone: [facility] 10-05-2024 16:09-0400 Diastolic blood pressure 71 mm[Hg] Travis Patterson APRN.CLASSIFICATION CONTROL CLERK Work Phone: [facility] 10-05-2024 16:09-0400 Heart rate 64 /min Travis Patterson APRN.CLASSIFICATION CONTROL CLERK Work Phone: [facility] 10-05-2024 16:09-0400 Respiratory rate 19 /min Travis Patterson APRN.CLASSIFICATION CONTROL CLERK Work Phone: [facility] 10-05-2024 16:09-0400 SaO2% (BldA) [Mass fraction] 96 % Travis Patterson 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.CLASSIFICATION CONTROL CLERK Work Phone: [facility] 10-05-2024 16:09-0400 Systolic blood pressure 122 mm[Hg] Travis Patterson 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.CLASSIFICATION CONTROL CLERK Work Phone: [facility] 09-30-2024 13:29-0400 Body temperature 97.3 [degF] Travis Patterson 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.CLASSIFICATION CONTROL CLERK Work Phone: [facility] 09-30-2024 13:29-0400 Diastolic blood pressure 64 mm[Hg] Travis Patterson 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.CLASSIFICATION CONTROL CLERK Work Phone: [facility] 09-30-2024 13:29-0400 Heart rate 69 /min Travis Patterson 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.CLASSIFICATION CONTROL CLERK Work Phone: [facility] 09-30-2024 13:29-0400 Respiratory rate 18 /min Travis Patterson 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.CLASSIFICATION CONTROL CLERK Work Phone: [facility] 09-30-2024 13:29-0400 SaO2% (BldA) [Mass fraction] 97 % Travis Patterson 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.CLASSIFICATION CONTROL CLERK Work Phone: [facility] 09-30-2024 13:29-0400 Systolic blood pressure 124 mm[Hg] Travis Patterson 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.CLASSIFICATION CONTROL CLERK Work Phone: [facility] 07-09-2024 23:24-0500 Diastolic blood pressure 66 mm[Hg] BETY Jha MD Work Phone: [facility] [employer] 07-09-2024 23:24-0500 Heart rate 96 /min BETY Jha MD Work Phone: [facility] [employer] 07-09-2024 23:24-0500 Respiratory rate 20 /min BETY Jha MD Work Phone: [facility] [employer] 07-09-2024 23:24-0500 SaO2% (BldA) [Mass fraction] 98 % BETY Jha MD Work Phone: [facility] [employer] 07-09-2024 23:24-0500 Systolic blood pressure 99 mm[Hg] BETY Jha MD Work Phone: [facility] [employer] 07-09-2024 23:21-0500 Body height 157.5 cm BETY Jha MD Work Phone: [facility] [employer] 07-09-2024 23:21-0500 Body mass index (BMI) [Ratio] 39.14 kg/m2 BETY Jha MD Work Phone: [facility] [employer] 07-09-2024 23:21-0500 Body temperature 98.4 [degF] BETY Jha MD Work Phone: [facility] [employer] 07-09-2024 23:21-0500 Body weight 97.07 kg BETY Jha MD Work Phone: [facility] [employer] 02-10-2024 10:43-0400 Body temperature 97.7 [degF] Isaaccirilo Hancocke DO Work Phone: [facility] [employer] 01-27-2024 12:59-0400 Body temperature 97.11 [degF] Isaaccirilo Chicas DO Work Phone: [facility] [employer] 01-27-2024 12:59-0400 Diastolic blood pressure 76 mm[Hg] Isaaccirilo Hancocke DO Work Phone: [facility] [employer] 01-27-2024 12:59-0400 Heart rate 72 /min Isaac Brian DO Work Phone: [facility] [employer] 01-27-2024 12:59-0400 Respiratory rate 18 /min Isaaccirilo Hancocke DO Work Phone: [facility] [employer] 01-27-2024 12:59-0400 Systolic blood pressure 126 mm[Hg] Isaaccirilo Hancocke DO Work Phone: [facility] [employer] 01-20-2024 14:26-0400 Body height 157.5 cm Isaaccirilo Hancocke DO Work Phone: [facility] [employer] 01-20-2024 14:26-0400 Body mass index (BMI) [Ratio] 38.96 kg/m2 Isaaccirilo Hancocke DO Work Phone: [facility] [employer] 01-20-2024 14:26-0400 Body temperature 97.2 [degF] Isaac Chicas DO Work Phone: [facility] [employer] 01-20-2024 14:26-0400 Body weight 96.62 kg Isaac Chicas DO Work Phone: [facility] [employer] 01-20-2024 14:26-0400 Diastolic blood pressure 70 mm[Hg] Isaac Chicas DO Work Phone: [facility] [employer] 01-20-2024 14:26-0400 Heart rate 79 /min Isaac Chicas DO Work Phone: [facility] [employer] 01-20-2024 14:26-0400 Respiratory rate 18 /min Isaac Chicas DO Work Phone: [facility] [employer] 01-20-2024 14:26-0400 Systolic blood pressure 112 mm[Hg] Isaac Chicas DO Work Phone: [facility] [employer] 12-15-2023 22:15-0400 Diastolic blood pressure 57 mm[Hg] Gloria Bangura DO Work Phone: [facility] 12-15-2023 22:15-0400 Heart rate 64 /min Gloriajasvir Bangura DO Work Phone: [facility] 12-15-2023 22:15-0400 Respiratory rate 16 /min Gloria Bangura DO Work Phone: [facility] 12-15-2023 22:15-0400 SaO2% (BldA) [Mass fraction] 98 % Gloriajasvir Bangura DO Work Phone: [employer] 12-15-2023 22:15-0400 Systolic blood pressure 137 mm[Hg] Gloraijasvir Bangura DO Work Phone: [employer] 12-15-2023 18:24-0400 Body height 165.1 cm Gloria Willem DO Work Phone: [employer] 12-15-2023 18:24-0400 Body mass index (BMI) [Ratio] 35.45 kg/m2 Gloria Willem DO Work Phone: [facility] [employer] 12-15-2023 18:24-0400 Body temperature 97.3 [degF] Gloria Bangura DO Work Phone: [facility] [employer] 12-15-2023 18:24-0400 Body weight 96.62 kg Gloria Bangura DO Work Phone: [facility] [employer] 07-20-2023 06:46-0500 Diastolic blood pressure 67 mm[Hg] Cuba Anna MD Work Phone: [employer] 07-20-2023 06:46-0500 Heart rate 63 /min Cuba Anna MD Work Phone: [employer] 07-20-2023 06:46-0500 Respiratory rate 16 /min Cuba Anna MD Work Phone: [employer] 07-20-2023 06:46-0500 SaO2% (BldA) [Mass fraction] 97 % Cuba Anna MD Work Phone: [employer] 07-20-2023 06:46-0500 Systolic blood pressure 148 mm[Hg] Cuba Anna MD Work Phone: [employer] 07-19-2023 18:50-0500 Body height 157.5 cm Cuba Anna MD Work Phone: [employer] 07-19-2023 18:50-0500 Body mass index (BMI) [Ratio] 43.71 kg/m2 Cuba Anna MD Work Phone: [employer] 07-19-2023 18:50-0500 Body temperature 98.01 [degF] Cuba Anna MD Work Phone: [employer] 07-19-2023 18:50-0500 Body weight 108.41 kg Cuba Anna MD Work Phone: [email or web address] 09-06-2022 10:13-0400 Diastolic blood pressure 75 mm[Hg] Linden Fuentes MD Work Phone: [employer] 09-06-2022 10:13-0400 Heart rate 69 /min Linden Fuentes MD Work Phone: [facility] 09-06-2022 10:13-0400 Respiratory rate 15 /min Linden Fuentes MD Work Phone: [facility] 09-06-2022 10:13-0400 SaO2% (BldA) [Mass fraction] 100 % Linden Fuentes MD Work Phone: [facility] 09-06-2022 10:13-0400 Systolic blood pressure 143 mm[Hg] Linden Fuentes MD Work Phone: [facility] 09-06-2022 05:33-0400 Body temperature 98.2 [degF] Linden Fuentes MD Work Phone: [facility] 03-12-2022 19:37-0400 Body temperature 98.71 [degF] BETY Jha MD Work Phone: [facility] 03-12-2022 19:37-0400 Diastolic blood pressure 68 mm[Hg] BETY Jha MD Work Phone: [facility] 03-12-2022 19:37-0400 Heart rate 73 /min BETY Jha MD Work Phone: [facility] 03-12-2022 19:37-0400 Respiratory rate 16 /min BETY Jha MD Work Phone: [facility] 03-12-2022 19:37-0400 SaO2% (BldA) [Mass fraction] 97 % BETY Jha MD Work Phone: [facility] 03-12-2022 19:37-0400 Systolic blood pressure 151 mm[Hg] BETY Jha MD Work Phone: [facility] 03-08-2022 20:15-0400 Body height 165.1 cm BETY Jha MD Work Phone: [facility] 03-08-2022 11:49-0400 Body mass index (BMI) [Ratio] 35.45 kg/m2 BETY Jha MD Work Phone: [facility] 03-08-2022 11:49-0400 Body weight 96.62 kg BETY Jha MD Work Phone: [facility] 09-26-2021 [id number] Body weight 99.34 kg Baudilio Sultana MD Work Phone: [facility] 09-26-2021 11:23-0400 Diastolic blood pressure 72 mm[Hg] Baudilio Sultana MD Work Phone: [facility] 09-26-2021 11:23-0400 Heart rate 68 /min Baudilio Sultana MD Work Phone: [facility] 09-26-2021 11:23-0400 Systolic blood pressure 142 mm[Hg] Baudilio Sultana MD Work Phone: [facility] Encounters Encounter Date Encounter Type Care Provider Facility Start: 02-21-2025 ambulatory Min Marroquin OLS Facil ity:[facility] Start: 02-13-2025 End: 02-13-2025 ambulatory [facility] Facility:[facility] Start: 02-07-2025 ambulatory Min Marroquin OLS Facil ity:[facility] Start: 02-01-2025 ambulatory Min Marroquin OLS Facil ity:[facility] Start: 01-31-2025 ambulatory Min Marroquin OLS Facil ity:[facility] Start: 01-24-2025 ambulatory [facility] Facility:[facility] Start: 01-17-2025 ambulatory Min Marroquin OLS Facil ity:[facility] Start: 01-10-2025 End: 01-10-2025 ambulatory GILMER Bojorquez LULA Facility:[facility] Start: 01-09-2025 ambulatory Min Marroquin OLS Facil ity:[facility] Start: 01-03-[address] Facility:[facility] Start: 01-02-2025 ambulatory Min Marroquin OLS Facil ity:[facility] Start: 12-19-2024 ambulatory Min Marroquin OLS Facil ity:[facility] Start: 12-06-2024 End: 12-06-2024 ambulatory GILMER Bojorquez LULA Facility:[facility] Start: 12-05-2024 ambulatory Min Marroquin OLS Facil ity:[facility] Start: 11-09-2024 End: 01-09-2025 Follow-up encounter Steven Testrake Work Phone: Podiatry Start: 11-08-2024 ambulatory STEVEN Jones ty:[id number] Start: 11-04-2024 End: 11-04-2024 ambulatory GILMER COTTON Facility:[facility] Start: 11-01-2024 End: 01-01-2025 Follow-up encounter Steven Pelaez Work Phone: Podiatry Start: 10-27-2024 ambulatory STEVEN Jones ty:[facility] Start: 10-27-2024 End: 10-27-2024 Subsequent hospital visit by physician Ramos [facility] [place] Work Phone: Radiology Comment on above: Sprain of left ankle , unspecified ligament, initial encounter [S93.402A] Start: 10-27-2024 End: 10-27-2024 Patient encounter procedure Steven Pelaez Work Phone: Podiatry Comment on above: Sprain of left ankle , unspecified ligament, initial encounter (Primary Dx); Ankle instability, left; Chronic pain of left ankle Start: 10-27-2024 End: 10-27-2024 ambulatory STEVENROWENA PELAEZ Facility:[facility] Start: 10-19-2024 End: 10-19-2024 Patient encounter procedure Mendel Sharma PA-C Work Phone: Orthopaedics Comment on above: Primary osteoarthrit is of left knee (Primary Dx) Start: 10-19-2024 End: 10-19-2024 ambulatory MENDEL SHARMA Facility:[facility] Start: 10-10-2024 End: 10-10-2024 ambulatory Travis Patterson APRN.CNP Work Phone: [facility] Comment on above: Fall at home, initia l encounter (Primary Dx); Cerebral palsy, unspecified type (HCC); Brachial neuritis or radiculitis; Acute pain of right shoulder; Left knee pain, unspecified chronicity; Diabetic polyneuropathy associated with type 2 diabetes mellitus (HCC); Neuropathy; Type 2 diabetes, controlled, with neuropathy (HCC); Atherosclerosis of [place] coronary artery of [place] heart without angina pectoris; Other pulmonary embolism without acute cor pulmonale, unspecified chronicity (HCC); Debility Start: 10-10-2024 End: 10-10-2024 Telemedicine consultation with patient Travis Patterson APRN.CLASSIFICATION CONTROL CLERK Work Phone: [facility] Start: 10-05-2024 End: 10-05-2024 ambulatory Travis Patterson APRN.CLASSIFICATION CONTROL CLERK Work Phone: [facility] Comment on above: Fall at home, initia l encounter (Primary Dx); Cerebral palsy, unspecified type (HCC); Brachial neuritis or radiculitis; Acute pain of right shoulder; Left knee pain, unspecified chronicity; Diabetic polyneuropathy associated with type 2 diabetes mellitus (HCC); Type 2 diabetes, controlled, with neuropathy (HCC); Neuropathy; Atherosclerosis of [place] coronary artery of [place] heart without angina pectoris; Other pulmonary embolism without acute cor pulmonale, unspecified chronicity (HCC); Debility Start: 10-05-2024 End: 10-05-2024 Telemedicine consultation with patient Travis Patterson APRN.CLASSIFICATION CONTROL CLERK Work Phone: [facility] Start: 09-30-2024 End: 09-30-2024 ambulatory Travis Patterson APRN.CLASSIFICATION CONTROL CLERK Work Phone: [facility] Comment on above: Fall at home, initia l encounter (Primary Dx); Cerebral palsy, unspecified type (HCC); Brachial neuritis or radiculitis; Acute pain of right shoulder; Left knee pain, unspecified chronicity; Diabetic polyneuropathy associated with type 2 diabetes mellitus (HCC); Neuropathy; Type 2 diabetes, controlled, with neuropathy (HCC); Atherosclerosis of [place] coronary artery of [place] heart without angina pectoris; Other pulmonary embolism without acute cor pulmonale, unspecified chronicity (HCC); Debility Start: 09-30-2024 End: 09-30-2024 Telemedicine consultation with patient Travis Patterson APRN.CLASSIFICATION CONTROL CLERK Work Phone: [facility] Start: 09-21-2024 End: 09-21-2024 ambulatory GILMER COTTON Facility:[facility] Start: 09-18-2024 End: 09-28-2024 ambulatory RAF CASEY Facility:[facility] Start: 09-18-2024 End: 09-18-2024 Emergency department patient visit RAF CASEY Facility:[facility] Start: 09-02-2024 End: 09-02-2024 ambulatory GILMER COTTON Facility:[facility] Start: 08-05-2024 End: 08-05-2024 ambulatory GILMER Bojorquez LARUE Facility:[facility] Start: 07-09-2024 End: 07-09-2024 Subsequent hospital visit by physician [facility] Xr Portable [facility] Radiology Comment on above: Arrived Start: 07-09-2024 End: 07-10-2024 Emergency department patient visit Александр Jha MD Work Phone: [facility] ED Comment on above: Acute cough (Primary Dx) Start: 06-30-2024 End: 06-30-2024 ambulatory GILMER COTTON Facility:[facility] Start: 05-02-2024 End: 05-02-2024 ambulatory [facility] Maryellen LARUE Facility:[facility] Start: 03-04-2024 End: 03-04-2024 ambulatory GILMER Bojorquez LULA Facility:[facility] Start: 02-10-2024 End: 02-10-2024 Office outpatient visit 10 minutes Isaca Chicas DO Work Phone: [facility] WND OSTOM[facility] Comment on above: Pressure ulcer of ri ght foot, stage 3 (HCC) (Primary Dx) Start: 02-10-2024 End: 02-10-2024 ambulatory [facility] Start: 01-27-2024 End: 01-27-2024 Subsequent hospital visit by physician Isaac Chicas DO Work Phone: [facility] Comment on above: Pressure ulcer of ri ght foot, stage 3 (HCC) (Primary Dx) Start: 01-27-2024 End: 01-27-2024 ambulatory [facility] Start: 01-20-2024 End: 01-20-2024 Office outpatient new 30 minutes Isaac Chicas DO Work Phone: [facility] Comment on above: Pressure ulcer of ri ght foot, stage 3 (HCC) (Primary Dx) Start: 01-20-2024 End: 01-20-2024 ambulatory GIO HARVEY [facility] Start: 12-15-2023 End: 12-15-2023 Subsequent hospital visit by physician [facility] X[facility] Port[facility] Radiology Comment on above: Arrived Start: 12-15-2023 End: 12-16-2023 Emergency department patient visit Gloria Bangura Work Phone: [facility] ED Comment on above: Diabetic ulcer of le ft foot associated with diabetes mellitus due to underlying condition, unspecified part of foot, unspecified ulcer stage (HCC) (Primary Dx); Left leg cellulitis Start: 07-19-2023 End: 07-19-2023 Subsequent hospital visit by physician [facility] [address] Exam Room [address] [facility] [address] Comment on above: Arrived Start: 07-19-2023 End: 07-19-2023 Emergency department patient visit CUBA ANNA [facility] Start: 07-19-2023 End: 07-20-2023 Emergency department patient visit Cuba Anna MD Work Phone: [facility] ED Comment on above: Frequent falls (Prim liv Dx); Right hip pain; Contusion of right knee, initial encounter; Osteoarthritis, unspecified osteoarthritis type, unspecified site Start: 05-04-2023 Orders Only Chasidy Heredia MA [facility] [place] Start: 09-06-2022 End: 09-07-2022 Emergency department patient visit LINDEN FUENTES [facility] Start: 09-06-2022 End: 09-06-2022 Subsequent hospital visit by physician [facility] Ed Xr Portable [facility] X-Ray Comment on above: Arrived Start: 09-06-2022 End: 09-06-2022 Emergency department patient visit Linden Fuentes MD Work Phone: [facility] EMERGENCY DEPT Comment on above: Fall, initial encoun ter (Primary Dx) Start: 04-15-2022 Telephone encounter Baudilio Sultana MD Work Phone: [facility] [place] Comment on above: Insurance Authorizat ion Start: 03-08-2022 End: 03-13-2022 Evaluation and management of inpatient J Candida Jha MD Work Phone: [facility] Comment on above: Diabetic [...] Nursing evaluation of patient and report Nurse/Benigno [facility] Work Phone: Podiatry Comment on above: [...] m caregiver Steven Pelaez [facility] Phone[facility] Start: 02-10-2022 End: 02-10-2022 Subsequent hospital visit by physician Xr [facility] [place] Work Phone: Radiology Comment on above: Diabetic [...] Sultana MD Work Phone: Internal Medicine [facility] [place] Start: 11-26-2021 Telephone encounter Baudilio Sultana MD Work Phone: [facility] [place] Comment on above: Anticoagulation Start: 11-19-2021 Telephone encounter Baudilio Sultana MD Work Phone: [facility] [place] Comment on above: Anticoagulation Start: 11-05-2021 Telephone encounter Baudilio Sultana MD Work Phone: [facility] [place] Comment on above: Anticoagulation Start: 10-30-2021 Telephone encounter Baudilio Sultana MD Work Phone: [facility] [place] Comment on above: Anticoagulation Start: 10-15-2021 Telephone encounter Baudilio Sultana MD Work Phone: [facility] [place] Comment on above: Anticoagulation Start: 10-14-2021 ambulatory Baudilio Sultana MD Work Phone: [facility] [place] Comment on above: Question regarding C arotid Dup Dustin OP Start: 10-14-2021 End: 10-14-2021 Subsequent hospital visit by physician Bone Density [facility] Work Phone: Radiology Comment on above: Disorder of bone and cartilage [M89.9, M94.9] Start: 10-08-2021 Telephone encounter Baudilio Sultana MD Work Phone: [facility] [place] Comment on above: Anticoagulation Refill Request Start: 10-01-2021 Telephone encounter Baudilio Sultana MD Work Phone: [facility] Medicine [place] Comment on above: Patient Question; Or ders Anticoagulation Start: 09-27-2021 Telephone encounter Baudilio Sultana MD Work Phone: [facility] [place] Comment on above: Results Start: 09-26-2021 End: 09-26-2021 Patient encounter procedure Baudilio Sultana MD Work Phone: [facility] [place] Comment on above: Cerebral palsy, unsp ecified [...] Telephone encounter Baudilio Sultana MD Work Phone: [facility] Comment on above: Anticoagulation Start: 09-18-2021 Telephone encounter Baudilio Sultana MD Work Phone: [facility] Comment on above: Anticoagulation Start: 09-16-2021 Chart abstracting Baudilio Pretty MD Work Phone: [facility] Start: 09-16-2021 End: 09-16-2021 Patient encounter procedure [facility] Start: 2021 Telephone encounter Baudilio Sultana MD Work Phone: [facility] Comment on above: Anticoagulation Start: 01-29-2021 End: 01-29-2021 Subsequent hospital visit by physician Xr [facility] Work Phone: Radiology Comment on above: Chronic right should er pain [M25.511, G89.29] Start: 04-12-2018 Ambulatory DAVID ERWIN Facility :[facility] Start: 08-12-2017 End: 08-12-2017 Ambulatory DAVID ERWIN [facility] Procedures Date Procedure Procedure Detail Performing Clinician Start: 10-19-2024 Arthrocentesis aspir &/inj major jt/bursa w/o us Mendel Sharma PA-C Work Phone: Start: 07-09-2024 Radiologic exam ches t single view J Candida Jha MD Work Phone: Start: 01-27-2024 Debridement subcutan eous tissue 20 sq cm/< Isaac Chicas DO Work Phone: Start: 01-20-2024 Debridement subcutan eous tissue 20 sq cm/< Isaac Chicas DO Work Phone: Start: 12-15-2023 Radex foot complete minimum 3 views Gloria Willem DO Work Phone: Start: 12-15-2023 End: 12-15-2023 Bacteria identified in Blood by Culture Gloria Bangura DO Work Phone: Start: 12-15-2023 Basic metabolic pane l calcium total Gloria Willem DO Work Phone: Start: 12-15-2023 C-reactive protein Brashely id Willem DO Work Phone: Start: 07-19-2023 [...] ev cleared fda spec home use Kushal Ilodi DO Work Phone: Start: 03-12-2022 Gluc bld gluc mntr d ev cleared fda spec home use Kushal Acevedoodi DO Work Phone: Start: 03-12-2022 Iadna-dna/rna gi pth gn multiplex probe tq 12- Rose Goodman MD Work Phone: Start: 03-12-2022 Prothrombin time Eric Edge MD Work Phone: Start: 03-12-2022 End: 03-12-2022 Gluc bld gluc mntr dev cleared fda spec home use J Candida Jha MD Work Phone: Start: 03-11-2022 Gluc bld gluc mntr d ev cleared fda spec home use Kushal Acevedoodi DO Work Phone: Start: 03-11-2022 Gluc bld gluc mntr d ev cleared fda spec home use Kushal Acevedoodi DO Work Phone: Start: 03-11-2022 POCT COVID-19, ANTIGEN Katya 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 - CLASSIFICATION CONTROL CLERK Work Phone: Start: 03-11-2022 Gluc bld gluc mntr d ev cleared fda spec home use Kushal Ilodi DO Work Phone: Start: 03-11-2022 Gluc bld gluc mntr d ev cleared fda spec home use Kushal Ilodi DO Work Phone: Start: 03-11-2022 Basic metabolic pane l calcium total Demetris Stone MD Work Phone: Start: 03-11-2022 PROTIME/INR & PTT Eric Edge MD Work Phone: Start: 03-10-2022 Gluc bld gluc mntr d ev cleared fda spec home use Kushal Acevedoodi DO Work Phone: Start: 03-10-2022 Gluc bld gluc mntr d ev cleared fda spec home use Kushal Acevedoodi DO Work Phone: Start: 03-10-2022 Gluc bld [...] Thyrotropin [Units/v olume] in Serum or Plasma [facility] 1 Start: 03-09-2022 BASIC METABOLIC PANE L W/ REFLEX TO MG FOR LOW K Katya Lezama 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 - CLASSIFICATION CONTROL CLERK Work Phone: Start: 03-09-2022 Drug screen quantita tive vancomycin Kushal Gaines DO Work Phone: Start: 03-09-2022 Hemoglobin glycosylated a1c Katya Lezama APRN - CLASSIFICATION CONTROL CLERK Work Phone: Start: 03-09-2022 PROTIME/INR & PTT Merritt Lezama APRN - CLASSIFICATION CONTROL CLERK Work Phone: Start: 03-08-2022 Gluc bld gluc mntr d ev cleared fda spec home use Александр Jha MD Work Phone: Start: 03-08-2022 End: 03-08-2022 Gluc bld gluc mntr dev cleared fda spec home use Kushal Ilodi DO Work Phone: Start: 03-08-2022 Radex ankle complete minimum 3 views Katya Lezama APRN - CLASSIFICATION CONTROL CLERK Work Phone: Start: 03-08-2022 BEDSIDE SPIROMETRY Joy Lezama APRN - CLASSIFICATION CONTROL CLERK Work Phone: Start: 03-08-2022 Culture bacterial quanttative [...] Start: 09-25-2025 Creatinine measurement Serum Creatin ine [facility] Start: 02-20-2025 Influenza vaccination [facility] Start: 12-14-2024 Complete blood count Hemoglobin/Jackson tocrit [facility] Start: 12-14-2024 Creatinine measurement Serum Creatin ine [facility] Start: 12-14-2024 Diabetes: Estimated Glomerular Filtration Rate for Kidney [facility] Diabetes: Estimated Glomerular Filtration Rate for Kidney Health [facility] Start: 12-07-2024 End: 12-07-2024 Patient encounter procedure 12/07/2024 3:40 PM EDT Office Visit Endocrinology [address] [id number] Ravi Michael MD [address], [place] [id number] Diabetes Endocrinology Comment on above: Diabetes Start: 11-08-2024 End: 11-08-2024 Patient encounter procedure 11/08/2024 11:00 AM EDT Appointment MRI Scan [address] [place] [address] Chronic pain of left ankle [M25.572, G89.29 MRI Scan Comment on above: Chronic pain of left ankle [M25.572, G89.29 Start: 10-27-2024 End: 10-27-2024 Patient encounter procedure 10/27/2024 11:15 AM EDT Office Visit Podiatry [address] [place] [address] Steven Pelaez [address] [place] [address] left foot Podiatry Comment on above: left foot Start: 10-19-2024 End: 10-19-2024 Patient encounter procedure Orthopaedics Comment on above: Cerebral palsy with knee injury unable to stand pivot. Exam negative for laxity and patient going to senior living for rehab Cerebral palsy with left knee injury unable to stand pivot Start: 06-22-2024 Advance Directive Discussion Advance Directive Discussion [facility] Start: 06-22-2024 Medicare Advantage Annual Wellness Visit Medicare Advantage Annual Wellness Visit [facility] Start: 02-21-2024 Covid-19 Vaccine () Covid-19 Vacc[address] () [facility] Start: 02-21-2024 Influenza vaccination [facility] Start: 02-03-2024 End: 02-03-2024 Patient encounter procedure 02/03/2024 10:00 AM EDT Appointment [facility] [address] [place] [address] Isaac Chicas DO [address] [place], [place] [phone] [facility] Start: 01-27-2024 End: 01-27-2024 Patient encounter procedure 01/27/2024 1:15 PM EDT Appointment [facility] [address] [place] [address] Isaac Chicas DO [address] [place], [place] [address] [facility] Start: 06-22-2023 Advance Directive Discussion Advance Directive Discussion [facility] Start: 06-22-2023 Medicare [facility] Annual Wellness Visit Medicare Advantage Annual Wellness Visit [facility] Start: 03-09-2023 Hemoglobin A1c measurement Diabetes: Hemoglobin A1C [facility] Start: 03-09-2023 Thyroid stimulating hormone measurement TSH Level [facility] Start: 02-20-2023 Covid-19 Vaccine (5 - 2023-24 season) Covid-19 Vaccine ( season) [facility] Start: 02-20-2023 COVID-19 Vaccine ( season) COVID-19 Vaccine () [facility] Start: 02-20-2023 Influenza vaccination Influenza Vacc ine (#1) [facility] Start: 01-04-[address] [facility] Start: 01-04-2023 COLORECTAL CANCER SCREENING COLORECTAL CANCER SCREENING [facility] Start: 01-04-2023 Screening for malign ant neoplasm of colon [facility] Start: 09-26-2022 ANNUAL PCP TEAM PAPER MACHINE BACKTENDER DANYELLE DISEASE VISIT ANNUAL PCP TEAM CHRONIC DISEASE VISIT [facility] Start: 09-26-2022 Serum Creatinine Serum Creatinine Cl [facility] Start: 09-16-2022 Hepatitis B screening URINE ALBUMIN:CREATININE RATIO [facility] Start: 09-06-2022 Hemoglobin A1c measurement HbA1C [facility] Start: 09-06-2022 Hemoglobin A1c/Hemoglobin.total in Blood HBA1C [facility] Start: 06-24-2022 ANNUAL PCP TEAM PAPER MACHINE BACKTENDER DANYELLE DISEASE VISIT ANNUAL PCP TEAM CHRONIC DISEASE VISIT [facility] Start: 06-22-2022 ADVANCE DIRECTIVE DISCUSSION ADVANCE DIRECTIVE DISCUSSION [facility] Start: 04-18-2022 BP CONTROLLED (<130/80) BP CONTROLLE D (<130/80) [facility] Start: 04-12-2022 COVID-19 Vaccine (4 - Booster) COVID-19 Vaccine (4 - Booster) [facility] Start: 03-13-2022 End: 03-11-2023 Protime-INR Protime-INR Lab Routine PE (pulmonary thromboembolism) (HCC) Expected: 03/13/2022, Expires: 03/11/2023 [facility] Work Phone: Comment on above: Expected: 03/13/2022 , Expires: 03/11/2023 Start: 02-20-2022 Influenza vaccination [facility] Start: 02-12-2022 Hemoglobin A1c/Hemoglobin.total in Blood HBA1C [facility] Start: 11-09-2021 3 comp foot exam completed DIABETIC FOOT EXAM [facility] Start: 11-09-2021 Diabetic foot examination Diabetic Foot Exam [facility] Start: 11-08-2021 End: 01-08-2022 Thyrotropin [Units/volume] in Serum or Plasma TSH BLD Lab Routine Acquired hypothyroidism Expected: 11/08/2021, Expires: 01/08/2022 [facility] Work Phone: Comment on above: Expected: 11/08/2021 , Expires: 01/08/2022 Start: 09-26-2021 End: 11-26-2021 Comprehensive metabolic 2000 panel - Serum or Plasma [facility] Work Phone: Comment on above: Expected: 09/26/2021 , Expires: 11/26/2021 Start: 09-26-2021 End: 11-26-2021 Thyrotropin [Units/volume] in Serum or Plasma [facility] Work Phone: Comment on above: Expected: 09/26/2021 , Expires: 11/26/2021 Start: 09-26-2021 End: 11-26-2021 VITAMIN B12 BLOOD [facility] Work Phone: Comment on above: Expected: 09/26/2021 , Expires: 11/26/2021 Start: 09-11-2021 Glaucoma screening Dilated Retinal E xam [facility] Start: 09-11-2021 Hepatitis C antibody , confirmatory test DILATED RETINAL EXAM [facility] Start: 08-29-2021 FECAL OCCULT BLOOD FECAL OCCULT BLOO D [facility] Start: 08-29-2021 Screening for malign ant neoplasm of colon Fecal Occult Blood [facility] Start: 08-01-2021 Hemoglobin A1c/Hemoglobin.total in Blood HBA1C [facility] Start: 07-11-2021 Hepatitis B screening URINE ALBUMIN:CREATININE RATIO [facility] Start: 06-22-2021 ADVANCE DIRECTIVE DISCUSSION ADVANCE DIRECTIVE DISCUSSION [facility] Start: 06-16-2021 COVID-19 VACCINE (5 - Booster) COVID-19 VACCINE (5 - Booster) [facility] Start: 03-21-2021 Hepatitis B surface antibody level LDL CHOLESTEROL [facility] Start: 03-29-[address] [facility] Start: 03-29-2019 Screening for malign ant neoplasm of breast Mammogram Screening [facility] Start: 12-26-2018 ADVANCE DIRECTIVE DISCUSSION ADVANCE DIRECTIVE DISCUSSION [facility] Start: 03-29-2017 DTaP/Tdap/Td Vaccine s (2 - Td or Tdap) DTaP/Tdap/Td Vaccines (2 - Td or Tdap) [facility] Start: 03-29-[address] [facility] Start: 09-06-2016 Pneumococcal Vaccine : 65+ Years (1 - PCV) Pneumococcal Vaccine: 65+ Years (1 - PCV) [facility] Start: 2016 BONE DENSITY BONE DENSITY [facility] Start: 05-26-2016 SHINGRIX VACCINE (2 of 3) SHINGRIX VACCINE (2 of 3) [facility] Start: 05-26-2016 Zoster Vaccines (2 o f 3) Zoster Vaccines (2 of 3) [facility] Start: 2011 Hepatitis B Vaccine (1 of 3 - Risk 3-dose series) Hepatitis B Vaccine (1 of 3 - Risk 3-dose series) [facility] Start: 2011 Hepatitis B Vaccines (1 of 3 - Risk 3-dose series) Hepatitis B Vaccines (1 of 3 - Risk 3-dose series) [facility] Start: 2011 RSV Immunization age d 60 or older (1 - 1-dose 60+ series) RSV Immunization aged 60 or older (1 - 1-dose 60+ series) [facility] Start: 2011 RSV Immunization for Adults (1 - Risk 60-74 years 1-dose series) RSV Immunization for Adults (1 - Risk 60-74 years 1-dose series) [facility] Start: 2011 RSV Vaccine (1 - 1-d ose 60+ series) RSV Vaccine (1 - 1-dose 60+ series) [facility] Start: 2011 RSV Vaccine (1 - Ris k 60-74 years 1-dose series) RSV Vaccine (1 - Risk 60-74 years 1-dose series) [facility] Start: 09-06-2001 Zoster Vaccines (1 o f 2) Zoster Vaccines (1 of 2) [facility] Start: 1996 COLOGUARD (FIT-DNA) COLOGUARD (FIT-D NA) [facility] Start: [address] COLONOGRAPHY [facility] Start: 1996 Screening for malign ant neoplasm of colon [facility] Start: 1996 [facility] Start: 09-07-1991 Screening for malign ant neoplasm of breast Mammogram [facility] Start: 1991 Screening for malign ant neoplasm of breast Mammogram [facility] Start: 09-06-1970 DTaP/Tdap/Td Vaccine s (1 - Tdap) DTaP/Tdap/Td Vaccines (1 - Tdap) [facility] Start: 1970 DTaP/Tdap/Td vaccine (1 - Tdap) DTaP/Tdap/Td vaccine (1 - Tdap) [facility] Start: 1970 Hepatitis A Vaccines (1 of 2 - Risk 2-dose series) Hepatitis A Vaccines (1 of 2 - Risk 2-dose series) [facility] Start: 09-06-1969 Hepatitis C screening Hepatitis C [facility] Start: 1969 Anxiety Screening Anxiety Screening [facility] Start: 1969 BP CONTROLLED (<130/80) BP CONTROLLE D (<130/80) [facility] Start: 1969 Diabetes: Urine Albumin-Creatinine Ratio for Kidney Health Diabetes: Urine Albumin-Creatinine Ratio for Kidney Health [facility] Start: 1969 Hepatitis C screening Hepatitis C Sc reening [facility] Start: 1963 Depression Monitoring Depression Mon itoring [facility] Start: 1963 Depression Screening Depression Scre ening [facility] Start: 1961 Diabetic foot examination Diabetes: Foot Exam [facility] Start: 1961 Glaucoma screening Diabetes: R etinopathy Screening [facility] Start: 1961 Preventive dental service Diabetes: Dental Exam [facility] Start: 03-09-1952 COVID-19 Vaccine (#1) COVID-19 Vacci ne (#1) [facility] Start: 1951 Hepatitis B Vaccines (1 of 3 - 3-dose series) Hepatitis B Vaccines (1 of 3 - 3-dose series) [facility] Start: 1951 Screening for malign ant neoplasm of colon [facility] Start: 1951 Screening for osteoporosis Bone Density Scan [facility] Start: 1951 Lipid panel Lipid Panel [facility] Start: 1951 Medicare Advantage Annual Wellness Visit (AWV) Medicare Advantage Annual Wellness Visit (AWV) [facility] Start: 1951 Screening for malign ant neoplasm of colon [facility]: 1951 Screening for osteoporosis Bone Density Scan [employer] Bacteria identified in Blood by Culture [employer] Work Phone: End: 03-13-2022 Basic metabolic 2000 panel - Serum or Plasma Basic Metabolic Panel Lab Routine Daily for 3 Days starting 03/11/2022 until 03/13/2022, 1 completed [employer] Work Phone: Comment on above: Daily for 3 Days sta rting 03/11/2022 until 03/13/2022, 1 completed End: 03-13-2022 CBC W Auto Differential panel - Blood CBC with Auto Differential Lab Routine Daily for 3 Days starting 03/11/2022 until 03/13/2022, 1 completed [employer] Work Phone: Comment on above: Daily for 3 Days sta rting 03/11/2022 until 03/13/2022, 1 completed Culture, Blood 1 Culture, Blood 1 Microbiology STAT 03/08/2022 1:04 PM EDT [employer] Work Phone: Culture, Blood 2 Culture, Blood 2 Microbiology STAT 03/08/2022 1:04 PM EDT [employer] Work Phone: End: 03-08-2022 Culture, Urine Culture, Urine Microbiology Add-On One Time for 1 Occurrences starting 03/08/2022 until 03/08/2022 [employer] Work Phone: Comment on above: One Time for 1 Occur rences starting 03/08/2022 until 03/08/2022 Dressing Order: Collagen Ag, Mesalt pad; Three times per week; 4x4 gauze, ABDs; Kerlex, Paper tape Dressing Order: Collagen Ag, Mesalt pad; Three times per week; 4x4 gauze, ABDs; Kerlex, Paper tape Wound Ostomy Routine Ordered: 01/20/2024 [employer] Work Phone: Comment on above: Ordered: 01/20/2024 Dressing Order: Collagen, Mesalt pad; Three times per week; ABDs; Kerlex, Paper tape Dressing Order: Collagen, Mesalt pad; Three times per week; ABDs; Kerlex, Paper tape Wound Ostomy Routine Ordered: 01/27/2024 [employer] Work Phone: Comment on above: Ordered: 01/27/2024 End: 10-26-2022 Dxa bone density study 1/> sites axial skel DXA-AXIAL SKELETON Radiology Routine Disorder of bone and cartilage 1 Occurrences starting 09/26/2021 until 10/26/2022 [facility] Work Phone: Comment on above: 1 Occurrences starti ng 09/26/2021 until 10/26/2022 ECG 12 lead ECG 12 lead CV E CG STAT 09/06/2022 3:01 AM EDT [employer] Work Phone: Glucose [Mass/volume ] in Serum or Plasma [employer] Work Phone: Comment on above: 4X Daily (AC & HS) u ntil discontinued starting 03/08/2022 As Needed until disc ontinued starting 03/08/2022 End: 03-08-2022 Initiate Sepsis Narrator Initiate Sepsis Narrator Respiratory Care STAT Once for 1 Occurrences starting 03/08/2022 until 03/08/2022 [employer] Work Phone: Comment on above: Once for 1 Occurrenc es starting 03/08/2022 until 03/08/2022 End: 11-26-2025 MR Ankle - left WO contrast MRI ANKLE WO IVCON LEFT Radiology Routine Chronic pain of left ankle 1 Occurrences starting 10/27/2024 until 11/26/2025 [facility] Comment on above: 1 Occurrences starti ng 10/27/2024 until 11/26/2025 Oxygen therapy [Mini mum Data Set] Initiate Oxygen Therapy Protocol Respiratory Care Routine Daily until discontinued starting 03/08/2022 [employer] Work Phone: Comment on above: Daily until disconti nued starting 03/08/2022 Oxygen therapy [Mini mum Data Set] Initiate Oxygen Therapy Protocol Respiratory Care Routine As Needed until discontinued starting 03/08/2022 [employer] Work Phone: Comment on above: As Needed until disc ontinued starting 03/08/2022 End: 03-19-2022 PROTIME/INR & PTT PROTIME/INR & PTT Lab Routine Daily for 10 Days starting 03/10/2022 until 03/19/2022, 2 completed [employer] Work Phone: Comment on above: Daily for [address] arting 03/10/2022 until 03/19/2022, 2 completed End: 01-17-2023 Screening mammography bi 2-view breast inc cad FUAD SCREENING Radiology Routine Encounter for screening mammogram for breast cancer 1 Occurrences starting 12/18/2021 until 01/17/2023 [facility] Work Phone: Comment on above: 1 Occurrences starti ng 12/18/2021 until 01/17/2023 End: 09-26-2022 US CAROTID ARTERIES [facility] US CAROTID ARTERIES [facility] Vascular Lab Routine Carotid artery disease, unspecified laterality, unspecified type (HCC) 1 Occurrences starting 09/26/2021 until 09/26/2022 [facility] Work Phone: Comment on above: 1 Occurrences starti ng 09/26/2021 until 09/26/2022 End: 03-08-2022 Wound ostomy eval and treat Wound ostomy eval and treat Wound Ostomy Routine One Time for 1 Occurrences starting 03/08/2022 until 03/08/2022 [employer] Work Phone: Comment on above: One Time for 1 Occur rences starting 03/08/2022 until 03/08/2022 End: 11-26-2025 XR Ankle - left AP and Lateral and oblique XR ANKLE GENERAL 3V AP/LAT/OBL LEFT Radiology Routine Sprain of left ankle, unspecified ligament, initial encounter Ankle instability, left 1 Occurrences starting 10/27/2024 until 11/26/2025 [facility] Work Phone: Comment on above: 1 Occurrences starti ng 10/27/2024 until 11/26/2025 XR Ankle - left AP a nd Lateral and oblique XR ANKLE GENERAL 3V AP/LAT/OBL LEFT Radiology Routine Sprain of left ankle, unspecified ligament, initial encounter Ankle instability, left 10/27/2024 12:[address] [facility] End: 03-12-2023 XR FOOT GENERAL 3V AP/LAT/OBL LEFT XR FOOT GENERAL 3V AP/LAT/OBL LEFT Radiology Routine Diabetic ulcer of toe 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, with fat layer exposed (HCC) 1 Occurrences starting 02/10/2022 until 03/12/2023 [facility] Work Phone: Comment on above: 1 Occurrences starti ng 02/10/2022 until 03/12/2023 End: 02-10-2022 XR FOOT GENERAL 3V AP/LAT/OBL LEFT [facility] Work Phone: Comment on above: 1 Occurrences starti ng 02/10/2022 until 02/10/2022 End: 11-26-2025 XR Tibia and Fibula - left AP and Lateral XR TIBIA FIBULA 2V AP/LAT LEFT Radiology Routine Sprain of left ankle, unspecified ligament, initial encounter Ankle instability, left 1 Occurrences starting 10/27/2024 until 11/26/2025 [facility] Comment on above: 1 Occurrences starti ng 10/27/2024 until 11/26/2025 XR Tibia and Fibula - left AP and Lateral XR TIBIA FIBULA 2V AP/LAT LEFT Radiology Routine Sprain of left ankle, unspecified ligament, initial encounter Ankle instability, left 10/27/2024 12:[address] [facility] Immunizations Immunization Date Immunization Notes Care Provider Fide pednleton 03-14-2022 influenza virus vacc ine, unspecified formulation [facility] 1 [facility] 12-11-2021 COVID-19, PFIZER Bivalent BOOSTER, (age 12y+), IM, 30 mcg/0.3 mL dose BETY Jha MD Work Phone: [facility] Work Phone: 04-21-2021 COVID-19 vaccine, fu ll dose (MODERNA) Baudilio Sultana MD Work Phone: [facility] 02-21-2021 influenza, high-dose , quadrivalent vaccine (FLUZONE HIGH DOSE QUADRIVALENT) Baudilio Sultnaa MD Work Phone: [facility] 02-21-2021 influenza virus vacc ine, unspecified formulation Chasidy Heredia MA [facility] 09-25-2020 COVID-19 vaccine, fu ll dose (MODERNA) Baudilio Sultana MD Work Phone: [facility] 09-25-2020 COVID-19, [place] Vaccine , Vaccine Unspecified BETY Jha MD Work Phone: [facility] Work Phone: 09-25-2020 SARS-CoV-2, Unspecified [facility] 1 [facility] 08-28-2020 COVID-19 vaccine, fu ll dose (MODERNA) Baudilio Sultana MD Work Phone: [facility] Work Phone: 08-25-2020 COVID-19 vaccine, fu ll dose (MODERNA) Baudilio Sultana MD Work Phone: [facility] 08-23-2020 COVID-19, [place] Vaccine , Vaccine Unspecified BETY Jha MD Work Phone: [facility] Work Phone: 08-23-2020 SARS-CoV-2, Unspecified [facility] 1 [facility] 03-07-2020 influenza, high-dose , quadrivalent vaccine (FLUZONE HIGH DOSE QUADRIVALENT) Baudilio Sultana MD Work Phone: [facility] 05-04-2019 influenza, high dose seasonal, preservative-free Baudilio Sultana MD Work Phone: [facility] 05-04-2019 pneumococcal polysaccharide vaccine, 23 valent Baudilio Sultana MD Work Phone: [facility] 04-06-2018 influenza, high dose seasonal, preservative-free Baudilio Sultana MD Work Phone: [facility] 03-23-2017 Influenza virus vaccine [facility] Work Phone: 03-31-2016 zoster vaccine, live Baudilio Sultana MD Work Phone: [facility] 03-25-2016 influenza, injectabl e, quadrivalent, contains preservative Baudilio Sultana MD Work Phone: [facility] 03-02-2015 influenza, seasonal, injectable Baudilio Sultana MD Work Phone: [facility] 01-25-2015 pneumococcal conjuga te vaccine, 13 valent Baudilio Sultana MD Work Phone: [facility] 03-23-2014 influenza virus vacc ine, whole virus Baudilio Sultana MD Work Phone: [facility] 01-02-2014 Pneumococcal Vaccine [facility] Work Phone: 12-28-2013 pneumococcal polysaccharide vaccine, 23 valent Baudilio Sultana MD Work Phone: [facility] 03-29-2011 influenza virus vacc ine, unspecified formulation Baudilio Sultana MD Work Phone: [facility] Work Phone: 04-15-2010 influenza virus vacc ine, unspecified formulation Baudilio Sultana MD Work Phone: [facility] Work Phone: 04-19-2009 novel influenza-H1N1 -09, all formulations Baudilio Sultana MD Work Phone: [facility] Work Phone: 04-12-2009 influenza virus vacc ine, unspecified formulation Baudilio Sultana MD Work Phone: [facility] Work Phone: 04-05-2008 influenza virus vacc ine, unspecified formulation Baudilio Sultana MD Work Phone: [facility] 04-19-2007 influenza virus vacc ine, unspecified formulation Baudilio Sultana MD Work Phone: [facility] Work Phone: 03-29-2007 tetanus toxoid, redu alfredito diphtheria toxoid, and acellular pertussis vaccine, adsorbed Baudilio Sultana MD Work Phone: [facility] Work Phone: 04-29-2006 influenza virus vacc ine, unspecified formulation Baudilio Sultana MD Work Phone: [facility] Work Phone: 04-03-2003 pneumococcal polysaccharide vaccine, 23 valent Baudilio Sultana MD Work Phone: [facility] Work Phone: 04-04-1998 pneumococcal polysaccharide vaccine, 23 marilu Sultana MD Work Phone: [facility] Payers Date Payer Category Payer Unknown [id number] 2025 Unknown [id number] 2025 Medicare [id number] 2024 Self-pay [id number] 2023 Medicare HMO [employer] ESTEVANCHADZAN Wolff EDICARE .[id number] 2023 Medicaid HMO [employer] KEIRAZAN [employer]ff EDICAID ONLY [id number] 2022 Medicare [id number] 2022 Medicare (Managed Care) [facility] DUAL COMPLETE HMO POS SNP [id number] 2022 Medicare [id number] 2021 Medicaid [id number] 2021 Medicaid [facility] MEDICAID MYC ARE [facility] MEDICAID [id number] 2021-Present [phone] [address] [place] [address] Medicaid [id number] 2021 Medicaid [id number] 2021 Medicare [id number] 2021 Medicare [id number] 2021 Medicaid MEDICAID [facility] MEDICAID [id number] 2021-Present [phone] [address] [place] [address] Medicaid [id number] 2020 Private Health Insurance 2003 Unknown [facility] [id number] [facility] [id number] 1990 Medicare [id number] 1950 Unknown [id number] 668 Medicare [id number] Private Health Insurance [facility] [id number] Unknown [id number] 462 Unknown [id number] 462 Unknown [id number]. 462 Unknown [id number]. 462 Unknown [id number]. 462 Unknown [id number]. 462 Unknown [id number]. 462 Unknown [id number]. 462 Unknown [id number]. 462 Unknown [id number]. 462 Unknown [id number]. 462 Social History Date Type Detail Facility Start: 10-09-2016 End: 10-19-2024 Tobacco smoking status MDIS Never smoked tobacco [facility] Start: 08-15-2021 End: 10-27-2024 Alcohol intake Current drinker of alcohol (finding) [facility] Start: 01-02-2020 End: 09-06-2022 History SDOH Alcohol Frequency 2 [facility] Start: 01-02-2020 End: 09-06-2022 History SDOH Alcohol Std Drinks 1 [facility] Start: 01-02-2020 History SDOH Social Connections Phone 5 [facility] Start: 01-02-2020 History SDOH Social Connections Meetings 98 [facility] Start: 01-02-2020 History SDOH Social Connections Living 3 [facility] Start: 01-02-2020 History SDOH Physical Activity DPW 0 [facility] Start: 01-02-2020 History SDOH Stress 4 [facility] Start: 01-02-[address] [facility] Start: 10-09-2016 End: 10-19-2024 Tobacco Comment Lived with 2 smoking parents for 18 years. Spouse non-smoke. [facility] Start: 1950 Sex Assigned At Not on file [facility] Start: 12-15-2020 End: 09-06-2022 Exposure to SARS-CoV-2 (event) Not sure [facility] Start: 04-22-2021 Tobacco smoking status MDIS Unknown if ever smoked [facility] Work Phone: Start: 02-27-2021 Rare [facility] Work Phone: Start: 02-27-2021 None [facility] Work Phone: Start: 06-26-2017 Spouse/ Significant Other [facility] Work Phone: Start: 02-27-2021 Non-smoker [facility] Work Phone: Start: 1950 End: 1950 Sex Assigned At Female [facility] Work Phone: Start: 10-04-2021 End: 03-10-2022 Exposure to SARS-CoV-2 (event) Unable to assess [facility] Start: 10-09-2016 End: 10-19-2024 Tobacco use and exposure Smokeless tobacco non-user [facility] Work Phone: Start: 03-08-2022 History SDOH Alcohol Comment 1 PER YEAR [facility] Work Phone: Start: 01-02-2020 End: 10-27-2024 History of [address] function [facility] Start: 01-02-2020 End: 10-27-2024 Social connection and isolation panel [facility] Do you belong to any clubs or organizations such as hoahaoism groups, unions, fraternal or athletic groups, or school groups? No [facility] How often do you att end meetings of the clubs or organizations you belong to? Patient refused [facility] Are you now , , , , never or living with a partner? [facility] How often to you hav e a drink containing alcohol? Monthly or less [facility] How many standard dr inks containing alcohol do you have on a typical day? [address] [facility] How often do you hav e 6 or more drinks on 1 occasion? Never [facility] How hard is it for y ou to pay for the very basics like food, housing, medical care, and heating Not very hard [facility] Do you feel stress - tense, restless, nervous, or anxious, or unable to sleep at night because your mind is troubled all the time - these days [OSQ] Rather much [facility] (I/We) worried [place] er (my/our) food would run out before (I/we) got money to buy more. Sometimes true [facility] The food that (I/we) bought just didn't last, and (I/we) didn't have money to get more. Never true [facility] Start: 12-03-2021 Gender identity Identifies as female gender (finding) [facility] Start: 07-09-2024 Alcohol Comment occasional [facility] Start: 04-03-2022 Sex Female (finding) [facility] Medical Equipment Procedure Code Equipment Code Equipment Original Text Equipment Identifier Dates Reinaldo Bn Smplx Hv Fd - [id number] Start: 12-26-2013 Reinaldo Bn Smplx Hv Fd - [id number] Start: 12-26-2013 Comp Fem 3 Rt Kn Reinaldo Ps Pfc - [id number] Start: 12-26-2013 Ins Tib Xlnk - [id number] Start: 12-26-2013 Comp Tibtry 3 Kn Reinaldo Mdlr Sig - [id number] Start: 12-26-2013 Dome Pat 38mm Pf c Sig Std Kn - [id number] Start: 12-26-2013 [id number], [id number], [id number], [id number], [id number], [id number] Start: 01-04-2018 End: 07-24-2021 Comment on above: [...] serious difficulty hearing No 01/25/2015 11:16 AM EDT Lora Acuna Ma No [facility] 01-25-2015 Are you blind, or do you have serious difficulty seeing, even when wearing glasses Yes 01/25/2015 11:16 AM EDT Lora Acuna Ma Yes [facility] 01-25-2015 Do you have serious difficulty walking or climbing stairs Yes 01/25/2015 11:16 AM EDT Lora Acuna Ma Yes [facility] 01-25-2015 Do you have difficul ty dressing or bathing Yes 01/25/2015 11:16 AM EDT Lora Acuna Ma Yes [facility] 01-25-2015 Because of a physica l, mental, or emotional condition, do you have difficulty doing errands alone such as visiting a physician's office or shopping Yes 01/25/2015 11:16 AM EDT Lora Acuna Ma Yes [facility] Mental Status Date Assessment Result Facility 01-25-2015 Because of a physica l, mental, or emotional condition, do you have serious difficulty concentrating, remembering, or making decisions No 01/25/2015 11:16 AM EDT Lora Acuna Ma No [facility] Clinical Notes 01-04-2018 to 02-13-2025 Felix David RT(Jessica) - 10/27/2024 11:40 AM Steven Sutton - 10/27/2024 11:29 AM Del Shultz RN - 10/27/2024 10:44 AM EDTPatient InstructionsDischarge InstructionsAttachments Note Date & Type Note Facility 02-13-2025 Note HNO ID: [id number] Author: GILMER COTTON, PhD Service: ? Author Type: Psychologist Type: Progress Notes Filed: 02/13/2025 15:57 Note Text: [facility] Progress Note Randolph Hunter 02/13/2025 [id number] PROVIDER: Gilmer Cotton, PhD CPT Code: Time: 50 minutes Setting: Due to the federal emergency declaration and the need for ongoing mental health services, the following visit was completed virtually and informed consent obtained orally to reduce the risk of COVID-19 exposure. Oral consent to services related to virtual visits was obtained after information was sent via [employer] or read to patient if Simfinithart not available." Parties Present: Patient Treatment Modality/Interventions: Cognitive Behavioral Reassurance/Supportive Insight oriented Problem solving Processing of emotions Psychoeducation MENTAL STATUS: Mood: variable, dysthymic, irritable Affect: mood-congruent Thoughts/Associations:goal directed Suicidal/Homicidal Ideation: None expressed or evidenced Other Prominent Symptoms: Therapy Focus/Content of Session: Self-care, Stress management, Mood/affect regulation, Self-esteem, and Coping with chronic illness MOOD: a little better and some med changes added one med (Lyrica) and took some away the place is somewhat understaffed but seems to be operating a bit better Clovis is now in apartments near [facility] 2 children ... 11 grandchildren Khadra due end of Mar wonders if she might have had a little stroke affecting left side of her cheek and some more ruling some jo and has been out to restaurants with a group and may go to the [employer]: country more than fancy and they grind her meat generally good enough so far MEDICATIONS: Per medical record: Current Outpatient Medications [...] directed once a month. blood sugar diagnostic (CasterStatsTOUCH VERIO TEST STRIPS) test strip Test blood [...] test meter (COAGUCHEK XS PRO) misc Check Protim (more content not included)... [facility] 01-10-2025 Note HNO ID: [id number] Author: GILMER COTTON, PhD Service: ? Author Type: Psychologist Type: Progress Notes Filed: 01/10/2025 12:09 Note Text: [facility] Progress Note Randolph Hunter 01/10/2025 [id number] PROVIDER: Gilmer Cotton, PhD CPT Code: Time: 50 minutes Setting: Patient seen in person Parties Present: Patient Treatment Modality/Interventions: Cognitive Behavioral Reassurance/Supportive Insight oriented Problem solving Processing of emotions Assertiveness training Psychoeducation MENTAL STATUS: Mood: variable, dysthymic Affect: mood-congruent Thoughts/Associations:goal directed Suicidal/Homicidal Ideation: None expressed or evidenced Other Prominent Symptoms: Therapy Focus/Content of Session: Self-care, Stress management, Mood/affect regulation, and Self-esteem Randolph was under the weather today... fatigue and bowel issues she had a UTI and just finishing antibiotics We talked about her brother and she regarding their experience with their mother brother who was younger... loving mom but he didnt get as much material stuff as wished Randolph... bad mom who was mean and not very loving new grandson born yesterday and delight about that MEDICATIONS: Per medical record: Current Outpatient Medications [...] directed once a month. blood sugar diagnostic ([employer] VERIO TEST STRIPS) test strip Test blood [...] breathe hourly while awake. PT/INR test meter (Perfect MemoryGUCHEK XS PRO) misc Check Protime weekly. Dx: pulmonary embolism, V58.61 COMPOUNDED PRESCRIPTION Hospital bed all electric with adjustable head and feet. 415.19; 343.8; 782.3; 787.91; V43.65 No current facility-administered medications for this visit. Psychiatric Medication Issues: No change from previous appointment DIAGNOSIS: [place] I: Depressive Disorder recurrent Morbidly Obese CP [place] II : Deferred [place] III : See medical history [place] IV: Health [place] V: GAF 60-51 Moderate symptoms or moderate difficulty in (more content not included)... [facility] 12-06-2024 Note HNO ID: [id number] Author: GILMER COTTON, PhD Service: ? Author Type: Psychologist Type: Progress Notes Filed: 12/06/2024 12:04 Note Text: [facility] Progress Note Randolph Hunter 12/06/2024 [id number] PROVIDER: Gilmer Cotton, PhD CPT Code: Time: [...] illness Pt moved now a week at [facility] [place] so far and she believes it [...] Assisted Living room while she is in Assisted Nursing rooms MEDICATIONS: Per medical record: Current [...] directed once a month. blood sugar diagnostic (ClaritureUCH VERIO TEST STRIPS) test strip Test blood [...] Issues: No change from previous appointment DIAGNOSIS: [place] I: Depressive Disorder recurrent Morbidly Obese CP [place] II : Deferred [place] III : See medical history [place] IV: Health [place] V: GAF 60-51 Moderate symptoms or moderate difficulty in social, (more content not included)... [facility] 11-08-2024 Note HNO ID: [id number] Author: SHALINI MERA RT(R) Service: ? Author [...] PATIENT PRESENTS WITH AN IMPLANTABLE OR ATTACHED ADMINISTRATIVE SERVICES ASSISTANT: No RADIOLOGY DEPARTMENT: MR; Exam(s) Completed: Lower MSK: Ankle/Hind Foot, left. Lavender Administered: No PERIPHERAL IV DATA: Not applicable SIGNED BY: RT Faustina(R) November 08, 2024 11:14 AM [facility] 11-04-2024 Note HNO ID: [id number] Author: GILMER COTTON, PhD Service: ? Author Type: Psychologist Type: Progress Notes Filed: 11/04/2024 11:56 Note Text: [facility] Progress Note Randolph Hunter 11/04/2024 [id number] PROVIDER: Gilmer Cotton, PhD CPT Code: Time: 50 minutes Setting: Due to the federal emergency declaration and the need for ongoing mental health services, the following visit was completed virtually and informed consent obtained orally to reduce the risk of COVID-19 exposure. Oral consent to services related to virtual visits was obtained after information was sent via [employer] or read to patient if Simfinithart not available." Parties Present: Patient Treatment Modality/Interventions: [...] / mo over a year so considering [facility] Cl[place] is doing a walk through today [...] directed once a month. blood sugar diagnostic (CasterStatsTOUCH VERIO TEST STRIPS) test strip Test blood [...] adjustable head and (more content not included)... [facility] 10-27-2024 History of Present illness [...] PATIENT PRESENTS WITH AN IMPLANTABLE OR ATTACHED ADMINISTRATIVE SERVICES ASSISTANT: No RADIOLOGY DEPARTMENT: General X-ray: Exam(s) Completed: Lower Extremity X-Ray(s): Tibia Fibula, Left and Ankle, Left PERIPHERAL IV DATA: Not applicable SIGNED BY: RT Ari(Jessica) October 27, 2024 11:40 AM documented in this encounter [facility] 10-27-2024 Note HNO ID: [id number] Author: FELIX DAVID RT(R) Service: Radiology Author [...] PATIENT PRESENTS WITH AN IMPLANTABLE OR ATTACHED ADMINISTRATIVE SERVICES ASSISTANT: No RADIOLOGY DEPARTMENT: General X-ray: Exam(s) Completed: Lower Extremity X-Ray(s): Tibia Fibula, Left and Ankle, Left PERIPHERAL IV DATA: Not applicable SIGNED BY: RT Ari(Jessica) October 27, 2024 11:40 AM [facility] 10-27-2024 Note HNO ID: [id number] Author: STEVEN PELAEZ, ? Service: ? 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 12 Each 0 blood sugar diagnostic (ClaritureUCH VERIO TEST STRIPS) test strip Test blood [...] (NORCO) 5-325 mg (more content not included)... [facility] 10-27-2024 History of Present illness Narrative Subjective [...] improve strength and stability. Attestation Recording using [employer] software for draft documentation of the visit was discussed with the patient/authorized patient registration representative; all questions welcomed and answered. Patient/authorized patient registration representative agreed to proceed Steven Pelaez DPM [...] and injured herself. She is currently at [facility]. Has a history of cerebral palsy with left sided decreased sensation, but states that when she stands or puts pressure on the foot she is still having pain. XRay of left ankle was done 09/18/24. ИРИНА 12/15/[address] this encounter [facility] 10-27-2024 Instructions Steven Pelaez - 10/27/2024 [...] the rehab center. documented in this encounter [facility] 10-27-2024 Note HNO ID: [id number] Author: DEL ISBELL RN Service: ? Author [...] and injured herself. She is currently at [facility]. Has a history of cerebral palsy with left sided decreased sensation, but states that when she stands or puts pressure on the foot she is still having pain. XRay of left ankle was done 09/18/24. ИРИНА 12/15/23 [facility] 10-19-2024 History of Present illness [...] directed once a month. blood sugar diagnostic (AppLearn VERIO TEST STRIPS) test strip Test blood [...] Status Change Penicillins Hives Dioxicillin Promethazine Intolerance Diqenms-Hwr-Mga Red* Myalgia PAST MEDICAL HISTORY PAST MEDICAL [...] which included preparing to see the patient, sekd-ap-icfz patient care, completing clinical documentation, obtaining and/or [...] these instructions. Informed Consent Consent Obtained: Verbal [place] Protocol A moment to CARE was completed. [...] Mendel Sharma PA-C documented in this encounter [facility] 10-19-2024 Note HNO ID: [id number] Author: MENDEL SHARMA PA-C Service: ? Author Type: Physician Tucking Machine Operator Type: Progress Notes Filed: 10/19/2024 10:43 [...] directed once a month. blood sugar diagnostic (AppLearn VERIO TEST STRIPS) test strip Test blood [...] Status Change Penicillins Hives Dioxicillin Promethazine Intolerance Nvtqfho-Akj-Mcq Red* Myalgia PAST MEDICAL HISTORY PAST MEDICAL HISTORY Diagnosis Date CAD (coronary artery disease) Carotid artery stenosis Cerebral palsy (HCC) Chronic depressive personality disorder Diarrhea Dyslipidemia Edema bilat Hirsutism Hypertension Hypothyroid Insomnia Migraines (more content not included)... [facility] 10-10-2024 Note HNO ID: [id number] Author: TRAVIS PATTERSON APRN.CLASSIFICATION CONTROL CLERK Service: ? Author Type: Nurse Practitioner Type: Progress Notes Filed: 10/10/2024 16:06 Note Text: Connected Care Unit Progress Note Patient Name: Randolph Hunter Patient Facility: [facility] Admit Date 09/28/2024 Level of Care: [...] vital signs Monitor labs 9. Atherosclerosis of [place] coronary artery of [place] heart without angina pectoris - ICD9: 414.01, [...] 9:30 AM MENDEL SHARMA [facility] [phone] 11/04/2024 11:00 AM GILMER COTTON [facility] [phone] 12/06/2024 11:00 AM GILMER COTTON [facility] [phone] 12/07/2024 3:40 PM RAVI MICHAEL [employer] [facility] [phone] HPI: (Per hospital discharge) Admission Information ADMIT [...] inability to stand pivot necessitating going to senior living facility for rehab SUMMARY OF WHAT HAPPENED WHILE I WAS IN THE HOSPITAL: Orthopedics agrees no surgical intervention now resume exercises when you get to the senior living facility no ligamentous injury evident on CT [...] for weakness. Medication (more content not included)... [facility] 10-10-2024 History of Present illness Narrative Images from the original note were not included. Connected Care Unit Progress Note Patient Name: Randolph Hunter Patient Facility: [facility] Admit Date 09/28/2024 Level of Care: [...] vital signs Monitor labs 9. Atherosclerosis of [place] coronary artery of [place] heart without angina pectoris - ICD9: 414.01, [...] 9:30 AM MENDEL SHARMA [facility] [phone] 11/04/2024 11:00 AM GILMER COTTON [facility] [phone] 12/06/2024 11:00 AM GILMER COTTON [facility] [phone] 12/07/2024 3:40 PM RAVI MICHAEL [facility] [phone] HPI: (Per hospital discharge) Admission Information ADMIT [...] inability to stand pivot necessitating going to senior living facility for rehab SUMMARY OF WHAT HAPPENED WHILE I WAS IN THE HOSPITAL: Orthopedics agrees no surgical intervention now resume exercises when you get to the senior living facility no ligamentous injury evident on CT [...] GFR- 59 mL/min/1.73 m2 >60 L Final LDK-GRQ-[id number] 49 mL/min/1.73 m2 >60 L Final Stage [...] today,10/10/2024 This note was partially generated using [employer] voice recognition system, and there may be some incorrect words, spellings, and punctuation that were not noted in checking the note before saving. Electronically signed by Travis Patterson APRN.CLASSIFICATION CONTROL CLERK documented in this encounter [facility] 10-05-2024 Note HNO ID: [id number] Author: TRAVIS PATTERSON APRN.JOHN Service: ? Author Type: Nurse Practitioner Type: Progress Notes Filed: 10/05/2024 16:20 Note Text: Connected Care Unit Progress Note Patient Name: Randolph Hunter Patient Facility: [facility] Admit Date 09/28/2024 Level of Care: [...] vital signs Monitor labs 9. Atherosclerosis of [place] coronary artery of [place] heart without angina pectoris - ICD9: 414.01, [...] Dept Phone 10/19/2024 9:30 AM MENDEL SHARMA [employer] [phone] 11/04/2024 11:00 AM GILMER COTTON [facility] [phone] HPI: (Per hospital discharge) Admission Information ADMIT [...] inability to stand pivot necessitating going to senior living facility for rehab SUMMARY OF WHAT HAPPENED WHILE I WAS IN THE HOSPITAL: Orthopedics agrees no surgical intervention now resume exercises when you get to the senior living facility no ligamentous injury evident on CT [...] weakness. Medications: Medications (more content not included)... [facility] 10-05-2024 History of Present illness Narrative Images from the original note were not included. Connected Care Unit Progress Note Patient Name: Randolph Hunter Patient Facility: [facility] Admit Date 09/28/2024 Level of Care: [...] vital signs Monitor labs 9. Atherosclerosis of [place] coronary artery of [place] heart without angina pectoris - ICD9: 414.01, [...] Phone 10/19/2024 9:30 AM MENDEL SHARMA [facility] [employer] [phone] 11/04/2024 11:00 AM GILMER COTTON [facility] [phone] HPI: (Per hospital discharge) Admission Information ADMIT [...] inability to stand pivot necessitating going to senior living facility for rehab SUMMARY OF WHAT HAPPENED WHILE I WAS IN THE HOSPITAL: Orthopedics agrees no surgical intervention now resume exercises when you get to the senior living facility no ligamentous injury evident on CT [...] today,10/05/2024 This note was partially generated using [employer] voice recognition system, and there may be some incorrect words, spellings, and punctuation that were not noted in checking the note before saving. Electronically signed by Travis Patterson APRN.JOHN documented in this encounter [facility] 09-30-2024 Note HNO ID: [id number] Author: TRAVIS PATTERSON APRN.JOHN Service: ? Author Type: Nurse Practitioner Type: Progress Notes Filed: 09/30/2024 13:49 Note Text: Connected Care Unit Progress Note Patient Name: Randolph Hunter Patient Facility: [facility] Admit Date 09/28/2024 Level of Care: [...] vital signs Monitor labs 9. Atherosclerosis of [place] coronary artery of [place] heart without angina pectoris - ICD9: 414.01, [...] Dept Phone 10/04/2024 11:00 AM GILMER COTTON [facility] [phone] 10/19/2024 9:30 AM MENDEL SHARMA [facility] [phone] 11/04/2024 11:00 AM GILMER COTTON [facility] [phone] HPI: (Per hospital discharge) Admission Information ADMIT [...] inability to stand pivot necessitating going to senior living facility for rehab SUMMARY OF WHAT HAPPENED WHILE I WAS IN THE HOSPITAL: Orthopedics agrees no surgical intervention now resume exercises when you get to the senior living facility no ligamentous injury evident on CT [...] history (unchanged) Revi (more content not included)... [facility] 09-30-2024 History of Present illness Narrative Images from the original note were not included. Connected Care Unit Progress Note Patient Name: Randolph Hunter Patient Facility: [facility] Admit Date 09/28/2024 Level of Care: [...] vital signs Monitor labs 9. Atherosclerosis of [place] coronary artery of [place] heart without angina pectoris - ICD9: 414.01, [...] Dept Phone 10/04/2024 11:00 AM GILMER COTTON [facility] [phone] 10/19/2024 9:30 AM MENDEL SHARMA [employer] [phone] 11/04/2024 11:00 AM GILMER COTTON [facility] [phone] HPI: (Per hospital discharge) Admission Information ADMIT [...] inability to stand pivot necessitating going to senior living facility for rehab SUMMARY OF WHAT HAPPENED WHILE I WAS IN THE HOSPITAL: Orthopedics agrees no surgical intervention now resume exercises when you get to the senior living facility no ligamentous injury evident on CT [...] which included preparing to see the patient, [id number] patient care, completing clinical documentation, obtaining and/or reviewing separately obtained history, performing a medically appropriate examination, counseling and educating the patient/family/caregiver, ordering medications, tests, or procedures, communicating with other HCPs (not separately reported), independently interpreting results (not separately reported), communicating results to the patient/family/caregiver, and care coordination (not separately reported). It This note was partially generated using [employer] voice recognition system, and there may be some incorrect words, spellings, and punctuation that were not noted in checking the note before saving. Electronically signed by Travis Patterson APRN.JOHN documented in this encounter [facility] 09-28-2024 Note HNO ID: [id number] Author: KATERIN RICH RN Service: Care Management Author Type: Registered Nurse Type: Care Mgt Progress Note Filed: 09/28/2024 15:06 Note Text: CARE MANAGEMENT DISCHARGE NOTE SERVICE DATE: September 28, 2024 SERVICE TIME: 3:04 PM Admission Date: 09/18/2024 LOS: 0 days Discharge Arrangement Discharge Arrangement: Long-Term Facility Was an expedited discharge program used?: No Services Arranged Provider Name: [facility] Caregiver Assessment Caregiver is ready, willing and able to meet the patient's needs as recommended by the inter-professional team: Yes Name of Caregiver: [facility] Transportation Arrangements Transportation Arrangements: Ambulance Transportation Agency and Phone #:: [facility] [phone] Date of Trip: 09/28/24 Time of Trip: 1630 Type of Service: BLS Non-emergency Is Patient Medicaid Pending?: No Was transportation financial coverage discussed with family?: Patient Entry Driver Operator Location: [place] Destination: [facility] Financial Care Management Responsibility: None Handoff Communication: Handoff to: Primary Care Physician Primary Care Physician Name/Phone: Raf Casey MD - [phone] Additional Information: Orders received for patient to discharge to SNF. [facility] is able to accept patient today. Precert approval received. Patient agreeable to discharge plan. Ambulance transport via MMT at 1630. Envelope prepared. Bedside RN updated. SIGNATURE: Katerin Rich RN PATIENT NAME: Randolph Hunter DATE: September 28, 2024 TIME: 3:03 PM [facility] 09-28-2024 Note HNO ID: [id number] Author: KATERIN RICH RN Service: Care Management Author Type: Registered Nurse Type: Care Mgt Progress Note Filed: 09/28/2024 11:21 Note Text: CARE MANAGEMENT PROGRESS NOTE SERVICE DATE: 09/28/2024 SERVICE TIME: 10:07 AM LOS: 0 days Needs Prior to Discharge: To Be Determined EMR reviewed. CM called and left VM for Ping Ramsey from the [facility] of ([phone]) in regards to determination of PASRR. Awaiting return call. CM will follow. 11:00 AM Left VM for [facility] in regards to determination of PASRR. Awaiting return call. Per [employer] website noted status is completed. CM will follow. 11:21 AM SNF reviewed results in [employer] website and are able to accept patient today. CM will follow. SIGNATURE: Katerin Rich RN PATIENT NAME: Randolph Hunter DATE: September 28, 2024 TIME: 10:07 AM [facility] 09-27-2024 Note HNO ID: [id number] Author: SAGE LOERA MD Service: Hospital Medicine Author Type: Physician Type: Progress Notes Filed: 09/27/2024 18:30 Note Text: DEPARTMENT OF HOSPITAL MEDICINE PROGRESS NOTE SERVICE DATE: 09/27/2024 SERVICE TIME: 5:44 PM Hospital Medicine/Primary Attending: Sage Loera MD NIGHT AND WEEKEND COVERAGE: [place] COVER[employer]: Nights: [phone], please page [facility] Night [facility] pager [phone]. Probable discharge: Disposition: [facility]-senior living facility Consultants: PROCEDURES: NONE CODE STATUS: Full code ACCEPTS BLOOD PRODUCTS: YES : ASSESSMENT/PLAN Reason for Admission: Fall in patient with cerebral palsy who being unable to bear weight to transfer will need senior living home placement Anticoagulation: Prior to admission: Warfarin [...] (cerebral palsy) (HCC) (POA: Yes) --Presented to [place] ED for evaluation of left knee pain [...] lupus erythematosus) (HCC) (POA: Yes) --Plaquenil as NEWS ASSISTANT Type 2 diabetes, controlled, with neuropathy (HCC) [...] the ED fo (more content not included)... [facility] 09-27-2024 Note HNO ID: [id number] Author: SHERYL HUITRON RN Service: Care Management Author Type: Registered Nurse Type: Care Mgt Progress Note Filed: 09/27/2024 14:00 Note Text: CARE MANAGEMENT PROGRESS NOTE SERVICE DATE: 09/27/2024 SERVICE TIME: 1:50 PM LOS: 0 days [place] checked and no determination noted on PASRR at this time. NAWAF LOPEZ called Ping Ramsey from the [facility] of . She confirms she completed bedside visit yesterday she checked and states she has not received any updates at this time. NAWAF LOPEZ provided direct contact and [facility] for her call with update. [facility] confirmed that insurance authorization/precert was obtained and valid until 09/29/24. SNF: [facility] updated in [facility] Transitions. Discharge Transportation: Medical Transport envelope on Chart. NAWAF LOPEZ updated patient. CM dept to follow. SIGNATURE: Sheryl Huitron RN PATIENT NAME: Randolph Hunter DATE: September 27, 2024 TIME: 1:50 PM [facility] 09-26-2024 Note HNO ID: [id number] Author: SAGE LOEAR MD Service: Hospital Medicine Author Type: Physician Type: Progress Notes Filed: 09/26/2024 14:40 Note Text: DEPARTMENT OF HOSPITAL MEDICINE PROGRESS NOTE SERVICE DATE: 09/26/2024 SERVICE TIME: 1:37 PM Hospital Medicine/Primary Attending: Sage Loera MD NIGHT AND WEEKEND COVERAGE: [place] COVERAGE: Nights: [phone], please page [facility] Night coverage pager [phone]. Probable discharge: Disposition: [facility]-senior living facility Consultants: PROCEDURES: NONE CODE STATUS: Full code ACCEPTS BLOOD PRODUCTS: YES : ASSESSMENT/PLAN Reason for Admission: Fall in patient with cerebral palsy who being unable to bear weight to transfer will need senior living home placement Anticoagulation: Prior to admission: Warfarin [...] (cerebral palsy) (HCC) (POA: Yes) --Presented to [place] ED for evaluation of left knee pain [...] lupus erythematosus) (HCC) (POA: Yes) --Plaquenil as NEWS ASSISTANT Type 2 diabetes, controlled, with neuropathy (HCC) [...] urinary symptoms, skin (more content not included)... [facility] 09-26-2024 Note HNO ID: [id number] Author: SHERYL HUITRON, RN Service: Care Management Author Type: Registered Nurse Type: Care Mgt Progress Note Filed: 09/26/2024 15:07 Note Text: CARE MANAGEMENT PROGRESS NOTE SERVICE DATE: 09/26/2024 SERVICE TIME: 9:41 AM LOS: 0 days 09/18/24 Admission Hospital Consults: PT. OT. O2: room air Diet: regular + supplements 09/22/24 PT recommended: SNF 09/22/24 OT recommended: SNF Discharge Plan: Long-Term Facility [facility]: [facility] - Able to Accept Precert was obtained and valid 09/23-09/25. Needs Precert for SNF. PT AND OT messaged to request updated evaluations today. [facility] updated via secure message to [facility]/MS site checked - No updates on determination. NAWAF LOPEZ called and left voice message for Ping Ramsey [phone]. Service and Support Administration request call back with update on determination. 09/26/24 9:38 AM NAWAF LOPEZ attempted another call to Ping Ramsey-No Answer/Voice Mail Box - no new message left at this time. Needs Prior to Discharge: To Be Determined, OT/PT Evaluation, Insurance Authorization, Precertification, Discharge Transportation ([facility] Level II Reveiw - Determination.) NAWAF LOPEZ met with patient at bedside to update her on discharge planning. CM Dept to Follow. 09/26/24 12:50PM NAWAF LOPEZ called Ping Ramsey from the [facility]. She informs CM that they can not see the review in there system. 09/26/24 1:00 PM RN JESSICA called and spoke with Ravi Ramirezaide [phone] from the [facility] He informs CM that review needs to go to the [facility] and they should be able to see the referral. RN JESSICA called Ping Ramsey back to inform her. She states she still is unable to see and states if she not receive it by end of day today she will reach out to Ravi Multani tomorrow. CM Dept to follow. 09/26/24 2:08 PM Ping Ramsey from [facility] of DD called CM to update her that she will be completing bedside visit today between 300PM and 400PM. [facility] tasked to start insurance authorization/precert. CM Dept to follow. SIGNATURE: Sheryl Huitron RN PATIENT NAME: Randolph Hunter DATE: September 26, 2024 TIME: 9:41 AM [facility] 09-25-2024 Note HNO ID: [id number] Author: SAGE LOERA MD Service: Hospital Medicine Author Type: Physician Type: Progress Notes Filed: 09/25/2024 16:17 Note Text: DEPARTMENT OF HOSPITAL MEDICINE PROGRESS NOTE SERVICE DATE: 09/25/2024 SERVICE TIME: 12:48 PM Hospital Medicine/Primary Attending: Sage Loera MD NIGHT AND WEEKEND COVERAGE: [place] COVERAGE: Nights: [phone], please page [facility] Night coverage pager [phone]. Probable discharge: Disposition: [facility]-senior living facility Consultants: PROCEDURES: NONE CODE STATUS: Full code ACCEPTS BLOOD PRODUCTS: YES : ASSESSMENT/PLAN Reason for Admission: Fall in patient with cerebral palsy who being unable to bear weight to transfer will need senior living home placement Anticoagulation: Prior to admission: Warfarin [...] (cerebral palsy) (HCC) (POA: Yes) --Presented to [place] ED for evaluation of left knee pain [...] lupus erythematosus) (HCC) (POA: Yes) --Plaquenil as NEWS ASSISTANT Type 2 diabetes, controlled, with neuropathy (HCC) [...] chest pain, palpitati (more content not included)... [facility] 09-24-2024 Note HNO ID: [id number] Author: SAGE LOERA MD Service: Hospital Medicine Author Type: Physician Type: Progress Notes Filed: 09/25/2024 12:46 Note Text: DEPARTMENT OF HOSPITAL MEDICINE PROGRESS NOTE SERVICE DATE: 09/25/2024 SERVICE TIME: 12:10 PM Hospital Medicine/Primary Attending: Sage Loera MD NIGHT AND WEEKEND COVERAGE: [place] COVERAGE: Nights: [phone], please page [facility] Night coverage pager [phone]. Probable discharge: Disposition: [facility]-senior living facility Consultants: PROCEDURES: NONE CODE STATUS: Full code ACCEPTS BLOOD PRODUCTS: YES : ASSESSMENT/PLAN Reason for Admission: Fall in patient with cerebral palsy who being unable to bear weight to transfer will need senior living home placement Anticoagulation: Prior to admission: Warfarin [...] (cerebral palsy) (HCC) (POA: Yes) --Presented to [place] ED for evaluation of left knee pain [...] lupus erythematosus) (HCC) (POA: Yes) --Plaquenil as NEWS ASSISTANT Type 2 diabetes, controlled, with neuropathy (HCC) (POA: Yes) --OP: Metformin --IP: SSI #1 AC/qHS -- Home metformin resumed CKD (chronic kidney disease) (POA: Yes) -- Renal function stable s Patient Active Hospital Problem List: Fall Date Noted: 05/04/2023 Type 2 diabetes, controlled, with neuropathy (HCC) Date Noted: Acquired hypothyroidism Date Noted: 04/10/2005 CP (cerebral palsy) ([facility]) Date Noted: 03/29/2007 Depression, recurrent Date Noted: 10/17/2009 SLE (systemic lupus erythematosus) ([facility]) Date Noted: 08/02/2010 Pulmonary embolism (HCC) Date [...] changes, peripheral edema, paresthesia or focal weaknesses. [place] ED Course: HDS, afebrile. Labs unremarkable. Imaging including XR L KNEE/HIP/ANKLE negative for fracture. CT L KNEE negative for fracture, small joint effusion noted. The patient was admitted under (more content not included)... [facility] 09-23-2024 Note HNO ID: [id number] Author: CONCEPCION KEEN MD Service: Hospital Medicine Author Type: Physician Type: Progress Notes Filed: 09/23/2024 17:37 Note Text: DEPARTMENT OF HOSPITAL MEDICINE PROGRESS NOTE SERVICE DATE: 09/23/2024 SERVICE TIME: 5:34 PM Hospital Medicine/Primary Attending: Concepcion Keen,* NIGHT AND WEEKEND COVERAGE: [place] COVERAGE: Days: [phone], please page attending physician. Nights: [phone], please page [facility] Night coverage pager [phone]. Subjective INTERVAL HPI: Seen and examined on [...] Drain Duration External Collection Device 09/18/24 2332 [facility] 4 days Reviewed lines and needs to [...] BMI 35-39.9 Depression, recurrent HOSPITAL COURSE: Randolph L Hunter is a 74 year old female [...] (cerebral palsy) (HCC) (POA: Yes) --Presented to [place] ED for evaluation of left knee pain after a fall at home, non-ambulatory at baseline secondary to CP but concerns for current facility ability to meet her needs --XR L KNEE/HIP/ANKLE negative for acute osseous injury -- (more content not included)... [facility] 09-23-2024 Note HNO ID: [id number] Author: SHERYL HUITRON, RN Service: Care Management Author Type: Registered Nurse Type: Care Mgt Progress Note Filed: 09/23/2024 16:53 Note Text: CARE MANAGEMENT PROGRESS NOTE SERVICE DATE: 09/23/2024 SERVICE TIME: 8:09 AM LOS: 0 days Discharge Plan: Long-Term Facility SNF: [facility] - : Able to Accept. [facility] tasked to start insurance precert for SNF. [place] PASRR completed. Level II Review Required. Determination: Pending. Discharge Transportation: Medical Transport - COT Transport Envelope on Chart SNF [facility] Updated in [facility] Transitions. Needs Prior to Discharge: To Be Determined, Insurance Authorization, Precertification, Discharge Transportation (PASRR Level II Determination) Dept to Follow. 09/23/24 11:46 AM [facility] confirms Precert Obtained: Patient has been APPROVED to admit to [facility] in the [facility] Portal starting 09/23-09/25 NRD 09/25 Auth ID [id number]. [place] PASRR Level II Review Determination is Still Pending. SNF: [facility] - Updated in [facility] Transitions. They can not accept until they receive the PASRR determination. CM dept to Follow. 09/23/24 4:52 PM RN CM checked [place] PASRR Document ID : [id number] - Still Pending Level II Determination. CM Dept to follow. SIGNATURE: Sheryl Huitron RN PATIENT NAME: Randolph Hunter DATE: September 23, 2024 TIME: 8:08 AM [facility] 09-22-2024 Note HNO ID: [id number] Author: CONCEPCION KEEN MD Service: Hospital Medicine Author Type: Physician Type: Progress Notes Filed: 09/22/2024 12:13 Note Text: DEPARTMENT OF HOSPITAL MEDICINE PROGRESS NOTE SERVICE DATE: 09/22/2024 SERVICE TIME: 12:12 PM Hospital Medicine/Primary Attending: Concepcion Keen,* NIGHT AND WEEKEND COVERAGE: [place] COVERAGE: Days: [phone], please page attending physician. Nights: [phone], please page [place] Hospitalist Night coverage pager [phone]. Subjective INTERVAL HPI: Seen and examined on [...] Drain Duration External Collection Device 09/18/24 2332 [facility] 3 days Reviewed lines and needs to [...] (cerebral palsy) (HCC) (POA: Yes) --Presented to [place] ED for evaluation of left knee pain after a fall at home, non-ambulatory at baseline secondary to CP but concerns for current facility ability to meet her needs --XR L KNEE/HIP/ANKLE negative for acute osseous injury --CT L KNEE negative for fracture, small joint eff (more content not included)... [facility] 09-22-2024 Note HNO ID: [id number] Author: CONCEPCION KEEN MD Service: Care Management [...] neuropathy (HCC) Acquired hypothyroidism CP (cerebral palsy) ([facility]) Depression, recurrent SLE (systemic lupus erythematosus) (HCC) Pulmonary embolism (HCC) Lupus anticoagulant disorder (HCC) CKD (chronic kidney disease) Knee pain Fall at home, initial encounter Obesity, Class II, BMI 35-39.9 Resolved Problems: * No resolved hospital problems. * Attending Physician: Concepcion Keen,* [facility] 09-22-2024 Note HNO ID: [id number] Author: SHERYL HUITRON RN Service: Care Management Author Type: Registered Nurse Type: Care Mgt Progress Note Filed: 09/22/2024 15:17 Note Text: CARE MANAGEMENT PROGRESS NOTE SERVICE DATE: 09/22/2024 SERVICE TIME: 8:35 AM SNF Referrals: [facility] - Pending [facility] Long-Term AND Rehab - Able to Accept [facility] - Able to Accept Patients SNF 1st choice is pending. NAWAF LOPEZ updated Referral and requested update on acceptance. PT AND OT messaged to request updates for Precert. Patient has been updated that [facility] is still pending. Discharge Transportation: To be Determined. Needs Prior to Discharge: Accepting Facility, OT/PT Evaluation, Insurance Authorization, Precertification, Discharge Transportation CM Dept to Follow. 09/22/24 3:[address] [facility] - Able to Accept PASR Completed in [facility]/MS - Level II Review Required. NAWAF LOPEZ called the [facility] [phone] Option 2 Service and Support Administration and spoke with Ping Ramsey at [phone]. She checked and informed CM that it has not been received from pending sale to [facility] at this time. She reports she it [...] DATE: September 22, 2024 TIME: 8:35 AM [facility] 09-21-2024 Note HNO ID: [id number] Author: GILMER COTTON, PhD Service: ? Author Type: Psychologist Type: Progress Notes Filed: 09/21/2024 17:07 Note Text: [facility] Behavioral Health Department Progress Note Randolph Hunter 09/21/2024 [id number] PROVIDER: Gilmer Cotton, PhD CPT Code: Time: 30 minutes Setting: Due to the federal emergency declaration and the need for ongoing mental health services, the following visit was completed virtually and informed consent obtained orally to reduce the risk of COVID-19 exposure. Oral consent to services related to virtual visits was obtained after information was sent via Return Path or read to patient if Simfinithart not available." Phone ... no access to [...] PRN Psychiatric Medication Issues: as noted DIAGNOSIS: [place] I: Depressive Disorder recurrent Morbidly Obese CP [place] II : Deferred [place] III : See medical history [place] IV: Health [place] V: GAF 60-51 Moderate symptoms or moderate difficulty in social, occupational or school functioning TREATMENT PROGRESS/ASSESSMENT: Fluctuating progress. TREATMENT PLAN/GOALS: Continue in therapy focusing on self-care, stress management, affect management, anxiety management, and self-esteem. Next appointment: as scheduled Gilmer Cotton, PhD [facility] 09-21-2024 Note HNO ID: [id number] Author: CONCEPCION KEEN MD Service: Hospital Medicine Author Type: Physician Type: Progress Notes Filed: 09/21/2024 16:30 Note Text: DEPARTMENT OF HOSPITAL MEDICINE PROGRESS NOTE SERVICE DATE: 09/21/2024 SERVICE TIME: 4:28 PM Hospital Medicine/Primary Attending: Concepcion Keen,* NIGHT AND WEEKEND COVERAGE: [place] COVERAGE: Days: [phone], please page attending physician. Nights: [phone], please page [place] Hospitalist Night coverage pager [phone]. Subjective INTERVAL HPI: Seen and examined on [...] Drain Duration External Collection Device 09/18/24 2332 [facility] 2 days Reviewed lines and needs to [...] (cerebral palsy) (HCC) (POA: Yes) --Presented to [place] ED for evaluation of left knee pain after a fall at home, non-ambulatory at baseline secondary to CP but concerns for current facility ability to meet her needs --XR L KNEE/HIP/ANKLE negative for acute osseous injury --CT L KNEE negative for fracture, small joint effusion noted --[place] (more content not included)... [facility] 09-21-2024 Note HNO ID: [id number] Author: SHERYL HUITRON RN Service: Care Management Author Type: Registered Nurse Type: Care Mgt Progress Note Filed: 09/21/2024 10:53 Note Text: CARE MANAGEMENT PROGRESS NOTE SERVICE DATE: 09/21/2024 SERVICE TIME: 9:19 AM LOS: 0 days Patient requesting a SNF Provider List for [place]: [id number]. [facility] SNF Provider List for [place] given to patient at bedside. Needs Prior to Discharge: To Be Determined, Facility or Agency Choices, Accepting Facility, Insurance Authorization, Precertification, Discharge Transportation CM Dept to Follow. 09/21/24 10:50 AM Patient provided SNF choices in order of preference: [facility] Long-Term AND Rehab [facility] SNF Referrals sent in [facility]. Precert Needed for SNF. CM Dept to Follow. SIGNATURE: Sheryl Huitron RN PATIENT NAME: Randolph Hunter DATE: September 21, 2024 TIME: 9:19 AM [facility] 09-21-2024 Note HNO ID: [id number] Author: SHERYL HUITRON RN Service: Care Management [...] discussed PT AND OT recommendations for SNF. [facility] SNF provider list given to patient. Patient informed she needs to provide 3 SNF choices in order of preference and she will require an insurance authorization/precert for SNF once she has an accepting SNF. [place] of Choice Given: Yes Level of Care Discussed: Long-Term Facility Financial Disclosure Provided: Yes Financial Disclosure Comments: [facility] SNF Provider Lists [id number] an [id number] given to patient at bedside to review and provide SNF choices. Provider List: Long-Term Facility Provider list within the patient's requested geographic area shared with the patient/family: Yes within: 15 miles of zip code: [address] (Patient also requesting a list for zip code [address].) Quality and resource use metrics shared with [...] DATE: September 21, 2024 TIME: 8:38 AM [facility] 09-20-2024 Note HNO ID: [id number] Author: CONCEPCION KEEN MD Service: Hospital Medicine Author Type: Physician Type: Progress Notes Filed: 09/20/2024 16:05 Note Text: DEPARTMENT OF HOSPITAL MEDICINE PROGRESS NOTE SERVICE DATE: 09/20/2024 SERVICE TIME: 4:04 PM Hospital Medicine/Primary Attending: Concepcion Keen,* NIGHT AND WEEKEND COVERAGE: [place] COVERAGE: Days: [phone], please page attending physician. Nights: [phone], please page [place] Hospitalist Night coverage pager [phone]. Subjective INTERVAL HPI: Seen and examined on [...] Lines, Drains, and Airways Line Duration Peripheral 09/18/242312 Right Antecubital 20 Gauge 1 day Drain Duration External Collection Device 09/18/24 2332 [facility] 1 day Reviewed lines and needs to [...] (cerebral palsy) (HCC) (POA: Yes) --Presented to [place] ED for evaluation of left knee pain after a fall at home, non-ambulatory at baseline secondary to CP but concerns for current facility ability to meet her needs --XR L KNEE/HIP/ANKLE negative for acute osseous injury --CT L KNEE negative for fracture, small joint effusion noted --Pain control as needed. On Lidoderm patch, Tylenol. Added oxycodone (more content not included)... [facility] 09-19-2024 Note HNO ID: [id number] Author: CONCEPCION KEEN MD Service: Hospital Medicine Author Type: Physician Type: Progress Notes Filed: 09/19/2024 14:41 Note Text: DEPARTMENT OF HOSPITAL MEDICINE PROGRESS NOTE SERVICE DATE: 09/19/2024 SERVICE TIME: 2:33 PM Hospital Medicine/Primary Attending: Concepcion Keen,* NIGHT AND WEEKEND COVERAGE: [place] COVERAGE: Days: [phone], please page attending physician. Nights: [phone], please page [facility] Night coverage pager [phone]. Subjective INTERVAL HPI: Seen and examined on [...] Drain Duration External Collection Device 09/18/24 2332 [facility] <1 day Reviewed lines and needs to [...] (cerebral palsy) (HCC) (POA: Yes) --Presented to [facility] for evaluation of left knee pain [...] --CM consulted for (more content not included)... [facility] 09-19-2024 Note HNO ID: [id number] Author: JADE SPARROW RN Service: Care Management Author Type: Registered Nurse Type: Care Mgt Initial Assessment Filed: 09/19/2024 10:28 Note Text: CARE MANAGEMENT: ASSESSMENT AND DISCHARGE PLAN SERVICE DATE: September 19, 2024 SERVICE TIME: 10:26 AM PCP: Raf Casey MD, Primary Contact: Extended Emergency Contact Information Primary Emergency Contact: Harper Hunter (HCPOA) Mobile Relation: Son Admission Status: Observation Insurance Provider: [facility] DUAL COMPLETE HMO POS SNP Discharge Planning requested by: Per Department Practice Potential Transition Plans To Be Determined Advance Directives Current Advance Directive: Health Care Power of Cut Press Operator, Living Will In Chart: Yes Up To Date and Valid: Yes Current Living Arrangements and Support Lives with: Spouse/significant other Type of Residence: Assisted Living Facility Does the patient have to climb stairs at home?: No Care Facility Name: [facility] Support: Children, Spouse/significant other How do you manage to accomplish the following: Independent: Medication Management Needs Assistance: Bathe/Shower, Dress, Going to the bathroom Dependent: Ambulation, Meals/Meal Prep, Transportation to appointments/community Current Services/Equipment Current Post-Acute Service(s): DME Current DME Type: Wheelchair-manual, Other: See Comment, Bedside commode (Lift Chair) Discharge Planning Patient Goal(s): Increase strength Mesa of Choice Explained: [place] of Choice Given: No Reason Not Given: Unable to complete with this assessment - revisit Are you interested in bedside delivery of your medications? No Discharge Planning Participant(s): Patient Patient/Family Comments: Caregiver Assessment: Caregiver is ready, willing and able to meet the patient's needs as recommended by the inter-professional team: Other: See Comment (From [facility]) Transport at Discharge: Transportation Arrangements: Ambulance Needs Prior to Discharge: Needs Prior to Discharge: OT/PT Evaluation Post-Acute Discharge Plan: Review of the chart and met with the patient. The patient states she lives with her at [facility] in [place]. States pivots from her lift chair to [...] DATE: September 19, 2024 TIME: 10:26 AM [facility] 09-02-2024 Note HNO ID: [id number] Author: GILMER COTTON, PhD Service: ? Author Type: Psychologist Type: Progress Notes Filed: 09/02/2024 12:02 Note Text: [facility] Behavioral Health Department Progress Note Randolph Hunter 09/02/2024 [id number] PROVIDER: Gilmer Cotton, PhD CPT Code: Time: 50 minutes Setting: Due to the federal emergency declaration and the need for ongoing mental health services, the following visit was completed virtually and informed consent obtained orally to reduce the risk of COVID-19 exposure. Oral consent to services related to virtual visits was obtained after information was sent via Return Path or read to patient if Simfinithart not available." Parties Present: Patient Treatment Modality/Interventions: [...] directed once a month. blood sugar diagnostic (ClaritureUCH VERIO TEST STRIPS) test strip Test blood [...] daily. calcium car (more content not included)... [facility] 08-05-2024 Note HNO ID: [id number] Author: GILMER COTTON, PhD Service: ? Author Type: Psychologist Type: Progress Notes Filed: 08/05/2024 12:29 Note Text: [facility] Department Progress Note Randolph Hunter 08/05/2024 [id number] PROVIDER: Gilmer Cotton, PhD CPT Code: Time: [...] directed once a month. blood sugar diagnostic (ClaritureUCH VERIO TEST STRIPS) test strip Test blood [...] Psychiatric Medication Issues: see med record DIAGNOSIS: [place] I: Depressive Disorder recurrent Morbidly Obese CP [place] II : Deferred [place] III : See medical history [place] IV: Health [place] V: GAF 60-51 Moderate symptoms or moderate difficulty in social, o (more content not included)... [facility] 07-10-2024 Emergency department Note Pt resting quietly in bed with blanket over face. Respirations even and non labored. No coughing noted at this time. Await transport by [facility]. [facility] 07-10-2024 Emergency department Note Pt resting quietly in bed with blanket over face. Respirations even and non labored. No coughing noted at this time. Await transport by [employer]. Dr. Jha at bedside. Dr. Jha to [...] TABLET Place under the tongue. NYSTATIN (MYCOSTATIN) [id number] UNIT/GM POWDER Apply topically 2 times daily. [...] Resource Strain: Low Risk (01/02/2020) Received from [facility] Overall Financial Resource Strain (CARDIA) Difficulty of Paying Living Expenses: Not very hard Food Insecurity: Food Insecurity Present (01/02/2020) Received from [facility] Hunger Vital Sign Worried About Running Out of Food in the Last Year: Sometimes true Ran Out of Food in the Last Year: Never true Transportation Needs: Unmet Transportation Needs (01/02/2020) Received from [facility] PRAPARE - Transportation Lack of Transportation (Medical): Yes Lack of Transportation (Non-Medical): Yes Physical Activity: Inactive (01/02/2020) Received from [facility] Exercise Vital Sign Days of Exercise per Week: 0 days Minutes of Exercise per Session: 0 min Stress: Stress Concern Present (01/02/2020) Received from [facility] [place] [employer] - Occupational Stress Questionnaire Feeling of Stress : Rather much Social Connections: Moderately Isolated (01/02/2020) Received from [facility] Social Connection and Isolation Panel [NHANES] Frequency of Communication with Friends and Family: More than three times a week Frequency of Social Gatherings with Friends and Family: Never Attends Congregational Services: Never Active Member of Clubs or Organizations: No Attends Club or Organization Meetings: Patient declined Marital Status: SCREENINGS PHYSICAL EXAM ED Triage Vitals Temp Heart Rate Resp BP 07/09/24 2321 [id number]/09/24232307/09/242323 36.9 C (98.4 F) 96 20 99/66 [...] DEPARTMENT COURSE and DIFFERENTIAL DIAGNOSIS/MDM: Vitals: Vitals: 07/09/24232007/09/242323 BP: 99/66 Pulse: 96 Resp: 20 Temp: [...] chest x-ray. I reviewed external records from: [facility] demonstrating 62 prescriptions, to include gabapentin and [place] Chest x-ray negative for consolidation upon my [...] Discharge 07/10/2024 12:55:44 AM [place] [facility] [place] [place] [phone] Schedule an appointment as soon as possible [...] Jha MD 07/10/24202 documented in this encounter [facility] 07-10-2024 Hospital Discharge instructions Александр Jha MD - 07/10/2024 12:56 AM EST If the Tessalon Perles do not work, you may purchase cough syrup [id number]. Please return to the emergency department if your symptoms change or worsen. The following attachments cannot be sent through Care Everywhere.Cough in Adults (Swiss)documented in this encounter [facility] 07-10-[address] Jha at bedside. [facility] 07-09-[address] Jha to bedside. Pt given water. [facility] 07-09-2024 Physician Emergency department Note [...] TABLET Place under the tongue. NYSTATIN (MYCOSTATIN) [id number] UNIT/GM POWDER Apply topically 2 times daily. [...] Resource Strain: Low Risk (01/02/2020) Received from [facility] Overall Financial Resource Strain (CARDIA) Difficulty of Paying Living Expenses: Not very hard Food Insecurity: Food Insecurity Present (01/02/2020) Received from [facility] Hunger Vital Sign Worried About Running Out of Food in the Last Year: Sometimes true Ran Out of Food in the Last Year: Never true Transportation Needs: Unmet Transportation Needs (01/02/2020) Received from [facility] PRAPARE - Transportation Lack of Transportation (Medical): Yes Lack of Transportation (Non-Medical): Yes Physical Activity: Inactive (01/02/2020) Received from [facility] Exercise Vital Sign Days of Exercise per Week: 0 days Minutes of Exercise per Session: 0 min Stress: Stress Concern Present (01/02/2020) Received from [facility] [place] [employer] - Occupational Stress Questionnaire Feeling of Stress : Rather much Social Connections: Moderately Isolated (01/02/2020) Received from [facility] Social Connection and Isolation Panel [NHANES] Frequency of Communication with Friends and Family: More than three times a week Frequency of Social Gatherings with Friends and Family: Never Attends Congregational Services: Never Active Member of Clubs or Organizations: No Attends Club or Organization Meetings: Patient declined Marital Status: SCREENINGS PHYSICAL EXAM ED Triage Vitals Temp Heart Rate Resp BP 07/09/24232007/09/24232307/09/24232307/09/242323 36.9 C (98.4 F) 96 20 99/66 SpO2 Temp Source Heart Rate Source Patient Position 07/09/24 2324 07/09/242320 -- -- 98 % Oral BP Location [...] and DIFFERENTIAL DIAGNOSIS/MDM: Vitals: Vitals: 07/09/24 2321 07/09/244 BP: 99/66 Pulse: 96 Resp: 20 Temp: [...] chest x-ray. I reviewed external records from: [facility] demonstrating 62 prescriptions, to include gabapentin and [place] Chest x-ray negative for consolidation upon my [...] Discharge 07/10/2024 12:55:44 AM [place] [facility] [place]: [address] , [place] [address] Schedule an appointment as soon as possible [...] Provider Александр Jha MD 07/10/24202 [facility] 06-30-2024 Note HNO ID: [id number] Author: GILMER COTTON, PhD Service: ? Author Type: Psychologist Type: Progress Notes Filed: 06/30/2024 11:53 Note Text: [facility]al [facility] Department Progress Note Randolph Hunter 06/30/2024 [id number] PROVIDER: Gilmer Cotton, PhD CPT Code: Time: 50 minutes Setting: Due to the federal emergency declaration and the need for ongoing mental health services, the following visit was completed virtually and informed consent obtained orally to reduce the risk of COVID-19 exposure. 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 blood sugar diagnostic (AppLearn VERIO TEST STRIPS) test strip Test blood [...] test meter ([place] (more content not included)... [facility] 05-02-2024 Note HNO ID: [id number] Author: GILMER COTTON, PhD Service: ? Author Type: Psychologist Type: Progress Notes Filed: 05/02/2024 12:11 Note Text: [facility] Department Progress Note Randolph Hunter 05/02/2024 [id number] PROVIDER: Gilmer Cotton, PhD CPT Code: Time: [...] directed once a month. blood sugar diagnostic (AppLearn VERIO TEST STRIPS) test strip Test blood [...] Issues: No change from previous appointment DIAGNOSIS: [place] I: Depressive Disorder recurrent Morbidly Obese CP [place] II : Deferred [place] III : See medical history [place] IV: Health [place] V: GAF 60-51 Moderate symptoms or moderate difficulty in social, occupational or school functioning TREATMENT PROGRESS/ASSESSMENT: Progressing satisfactorily. TREATMENT PLAN/GOALS: (more content not included)... [facility] 03-04-2024 Note HNO ID: [id number] Author: GILMER COTTON, PhD Service: ? 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 blood sugar diagnostic (ClaritureUCH VERIO TEST STRIPS) test strip Test blood [...] Issues: No change from previous appointment DIAGNOSIS: [place] I: Depressive Disorder recurrent Morbidly Obese CP [place] II : Deferred [place] III : See me (more content not included)... [facility] 02-10-2024 History of Present illness [...] Test Results/Process Orders 10 [] Staff telephones GROUT MACHINE OPERATOR, Nursing Homes/Clarify Orders 10 [] Routine [...] with plan . documented in this encounter [facility] 02-10-2024 Hospital Discharge instructions Maria Isabel Wilson RN - 02/10/2024 10:45 AM EDT Ordered treatment completed and patient is healed. Patient discharged without any issues. All questions answered. Call the clinic if your wound reopens or a new wound appears at [phone]. Edema/Swelling: Avoid standing for long periouds of [...] promote wound healing documented in this encounter [facility] 01-27-2024 History of Present illness Narrative Associated Order(s): Debridement Post-Procedure Diagnose(s): Pressure ulcer of right foot, stage 3 (HCC) Images from the original note were not included. [facility] Wound Care Progress Note CHIEF COMPLAINT: [...] provider verified the correct patient, procedure, equipment, field support specialist, and site/side marked as required. Debridement Details [...] attached Discharge Instructions documented in this encounter [facility] 01-27-2024 Hospital Discharge instructions Maria Isabel Wilson RN - 01/27/2024 1:15 PM EDT Follow-up Appointments: Return Appointment in 1 week. Call [place] wound [facility] at [phone], [facility] at [phone], or [facility] at [phone]. Edema/Swelling: Avoid standing for long periouds of [...] secure with tape. documented in this encounter [facility] 01-27-2024 Note [facility] Wound Care Progress Note CHIEF COMPLAINT: Wound [...] provider verified the correct patient, procedure, equipment, field support specialist, and site/side marked as required. Debridement Details [...] Paper tape Please see attached Discharge Instructions [facility] 01-20-2024 History of Present illness Narrative Associated Order(s): Debridement Post-Procedure Diagnose(s): Pressure ulcer of right foot, stage 3 (HCC) Images from the original note were not included. [facility] [address] [place] [address] Loc: [phone] Wound Care Visit - New Patient Progress [...] ti,es a day, Disp: , Rfl: HYDROcodone-acetaminophen ([place]) 5-325 MG tablet, Take 1 tablet by [...] the tongue., Disp: , Rfl: nystatin (Mycostatin) [id number] UNIT/GM powder, Apply topically 2 times daily., [...] provider verified the correct patient, procedure, equipment, field support specialist, and site/side marked as required. Debridement Details [...] (Active) Wound Image 01/20/24 1448 Site Assessment Red;[place] 01/20/24 1448 Andra-Wound Assessment [place] 01/20/24 1448 [...] Test Results/Process Orders 10 [x] Staff telephones [facility], Nursing Homes/Clarify Orders 10 [] Routine [...] or more Points) documented in this encounter [facility] 01-20-2024 Hospital Discharge instructions Maria Isabel iWlson RN - 01/20/2024 2:45 PM EDT Follow-up Appointments: Return Appointment in 1 week. Call [place] wound [facility] at [phone], [facility] at [phone], or [facility] at [phone]. Edema/Swelling: Avoid standing for long periouds of [...] secure with tape. documented in this encounter [facility] 01-20-2024 Note Encounter addended b y: Tania Osei RN on: 01/21/2024 10:33 AM Actions taken: Care Teams modified, LDA properties accepted, Charge Capture section accepted [facility] 12-16-2023 Emergency department Note Patient wheeled out ED for transport to residence. discharge instructions sent to facility with patient. No further questions. Respirations even and non labored. No acute distress. A&O x4. Gifty Cornell RN 12/16/23 0015 [facility] 12-16-2023 Emergency department Note Patient [...] Resource Strain: Low Risk (01/02/2020) Received from [facility] Overall Financial Resource Strain (CARDIA) Difficulty of Paying Living Expenses: Not very hard Food Insecurity: Food Insecurity Present (01/02/2020) Received from [facility] Hunger Vital Sign Worried About Running Out of Food in the Last Year: Sometimes true Ran Out of Food in the Last Year: Never true Transportation Needs: Unmet Transportation Needs (01/02/2020) Received from [facility] PRAPARE - Transportation Lack of Transportation (Medical): Yes Lack of Transportation (Non-Medical): Yes Physical Activity: Inactive (01/02/2020) Received from [facility] Exercise Vital Sign Days of Exercise per Week: 0 days Minutes of Exercise per Session: 0 min Stress: Stress Concern Present (01/02/2020) Received from [facility] [place] [employer] - Occupational Stress Questionnaire Feeling of Stress : Rather much Social Connections: Moderately Isolated (01/02/2020) Received from [facility] Social Connection and Isolation Panel [NHANES] Frequency of Communication with Friends and Family: More than three times a week Frequency of Social Gatherings with Friends and Family: Never Attends Congregational Services: Never Active Member of Clubs or [...] about putting in her observation unit at [facility] for 24 hours of IV [...] MD 12/15/231935 Patient to room 7 via [facility] for c/o a left foot ulcer, lower leg erythema, and a headache. Patient reports she has had her foot ulcer for a couple of months. V/S obtained, call light within reach. documented in this encounter [facility] 12-15-2023 Hospital Discharge instructions Karen [...] Care Everywhere.Cellulitis (Skin Infection) Discharge Instructions, Adult (Swiss)documented in this encounter [facility] 12-15-2023 Emergency department Triage note Patient to room 7 via [facility] for c/o a left foot ulcer, lower leg erythema, and a headache. Patient reports she has had her foot ulcer for a couple of months. V/S obtained, call light within reach. [facility] 12-15-2023 Physician Emergency department Note [...] Resource Strain: Low Risk (01/02/2020) [facility] Overall Financial Resource Strain (CARDIA) Difficulty of Paying Living Expenses: Not very hard Food Insecurity: Food Insecurity Present (01/02/2020) Received from [facility] Hunger Vital Sign Worried About Running Out of Food in the Last Year: Sometimes true Ran Out of Food in the Last Year: Never true Transportation Needs: Unmet Transportation Needs (01/02/2020) Received from [facility] PRAPARE - Transportation Lack of Transportation (Medical): Yes Lack of Transportation (Non-Medical): Yes Physical Activity: Inactive (01/02/2020) Received from [facility] Exercise Vital Sign Days of Exercise per Week: 0 days Minutes of Exercise per Session: 0 min Stress: Stress Concern Present (01/02/2020) Received from [facility] [place] [employer] - Occupational Stress Questionnaire Feeling of Stress : Rather much Social Connections: Moderately Isolated (01/02/2020) Received from [facility] Social Connection and Isolation Panel [NHANES] Frequency of Communication with Friends and Family: More than three times a week Frequency of Social Gatherings with Friends and Family: Never Attends Congregational Services: Never Active Member of Clubs or [...] antibiotics Augmentin and doxycycline on discharge. [BM] 1848 Signed out to oncoming emergency medicine physician [...] Emergency Medicine Provider Gloria Bangura DO 12/15/231848 [facility] 12-15-2023 Physician Emergency department Note [...] about putting in her observation unit at [facility] for 24 hours of IV antibiotics versus discharging home with oral antibiotics. After shared decision-making she elected to go home. I do think that this is a safe plan. She lives in assisted living and they can help her with continuing to monitor her wound. Gave her strict return precautions and discharged in stable condition. Karen Gallardo MD 12/15/23 193 [facility] 07-20-2023 Emergency department Note Physician's arrived; pt removed from urine collection device and pts own attends placed on pt per her request. Pts belongings in bag at bedside. Report to Physician's. Veronika Bae RN 07/20/23 0844 [facility] 07-20-2023 Emergency department Note Physician's arrived; pt [...] still in radiology. Pia Caraballo RN 07/19/23 3299 Dispo per imaging :) Chasidy Fernandez RN [...] No family history. She lives in a senior living facility and is on Coumadin as she [...] Height: 1.575 m (5' 2") Medications HYDROcodone-acetaminophen ([place]) 5-325 MG per tablet 1 tablet (has no administration in time range) HYDROcodone-acetaminophen ([place]) 5-325 MG per tablet 1 tablet (1 tablet Oral Given 07/19/232030) 72-year-old female presents for frequent falls, is in a assisted for this purpose, complains of right hip pain and right knee pain and neck pain MDM elements: The patient presented with chief complaint of see above. The differential diagnosis associated with this patient's presentation includes right hip pain from contusion versus fracture of the right hip versus pelvic fracture. Will evaluate bilateral knees for underlying fractures. Patient is on Coumadin and fails Peruvian CT head rules and CT C-spine rules by virtue of age, needs CT head and CT cervical spine as well. Pain controlled with [place]. No lab work required, this was mechanical fall to which the patient is very vulnerable and for which purpose she is in a assisted with PT and 24/7 wheelchair. Our workup consisted of ordering/reviewing: X-ray bilateral knees x-ray right femur CT pelvis without contrast, CT head and neck without contrast. To aid in management, I performed an independent interpretation of Xray(s) see below CT scan(s) see below. I also reviewed external records [facility] to obtain collateral history. The patient [...] this is why she lives in a assisted with 24/7 monitoring and physical therapy that visits her every day. I encouraged her to stay in her wheelchair to get around safely, and if she is transferring from the wheelchair to the toilet or other maneuvers at home, she should do so with nursing staff or PT nearby. She is already on [place] at home for pain so no additional [...] Mendez who is her osteoarthritis specialist in [place]; this is very good follow-up. The patient [...] toilet when she fell. She resides at [address] She currently is working with a physical therapist and is in a wheelchair. Patient hooked up to [employer] due to incontinence. She also has right knee bruising that is from her repeatedly hitting it on her wheelchair. She denies hitting her head or neck during fall. She is on coumadin. Call light within reach. documented in this encounter [facility] 07-20-2023 Emergency department Note [facility] with an ambulette/wheelchair van. Chasidy MCCRACKEN spoke with Physician's to inform them that the pt is non ambulatory and needed a stretcher. Physician's states they will have a stretcher here "within the hour." Veronika Bae RN 07/20/23 0717 [facility] 07-20-2023 Hospital Discharge instructions Cuba Anna MD [...] attachments cannot be sent through Care Everywhere.Osteoarthritis (Swiss)Preventing Falls in Older Adults (Swiss)Hip Pain ED (Swiss)documented in this encounter [facility] 07-20-2023 Emergency department Note Patient pressed call light to request pain medication. States pain is in shoulders and down the back from laying on the tables. notified Gifty Cornell RN 07/20/234 [facility] 07-19-2023 Emergency department Note Report given to Gifty MCCRACKEN & Chasidy MCCRACKEN. Patient still in radiology. Pia Caraballo RN 07/19/23 6074 [facility] 07-19-2023 Emergency department Note Dispo per imaging :) Chasidy Fernandez RN 07/19/232253 [facility] 07-19-2023 Emergency department Note Pt placed up for discharge. No discharge paperwork complete at this time. Once orders are complete and discharge paperwork complete by ER DR Pt will be discharged. Chasidy Fernandez RN 07/19/232251 [facility] 07-19-2023 Emergency department Note This RN requested orders from ER DR. Chasidy Fernandez RN 07/19/232025 [facility] 07-19-2023 Emergency department Triage note Patient is here for right hip pain. She was transferring to the toilet when she fell. She resides at [address] She currently is working with a physical therapist and is in a wheelchair. Patient hooked up to [employer] due to incontinence. She also has right knee bruising that is from her repeatedly hitting it on her wheelchair. She denies hitting her head or neck during fall. She is on coumadin. Call light within reach. [facility] 07-19-2023 Physician Emergency department Note EMERGENCY [...] No family history. She lives in a senior living facility and is on Coumadin as she [...] the left knee Report Dictated on Workstation: Glance Electronically Signed By: Phan Sepulveda MD Electronically [...] Height: 1.575 m (5' 2") Medications HYDROcodone-acetaminophen ([place]) 5-325 MG per tablet 1 tablet (has no administration in time range) HYDROcodone-acetaminophen ([place]) 5-325 MG per tablet 1 tablet (1 tablet Oral Given 07/19/232030) 72-year-old female presents for frequent falls, is in a assisted for this purpose, complains of right hip pain and right knee pain and neck pain MDM elements: The patient presented with chief complaint of see above. The differential diagnosis associated with this patient's presentation includes right hip pain from contusion versus fracture of the right hip versus pelvic fracture. Will evaluate bilateral knees for underlying fractures. Patient is on Coumadin and fails Peruvian CT head rules and CT C-spine rules by virtue of age, needs CT head and CT cervical spine as well. Pain controlled with [place]. No lab work required, this was mechanical fall to which the patient is very vulnerable and for which purpose she is in a assisted with PT and 24/7 wheelchair. Our workup consisted of ordering/reviewing: X-ray bilateral knees x-ray right femur CT pelvis without contrast, CT head and neck without contrast. To aid in management, I performed an independent interpretation of Xray(s) see below CT scan(s) see below. I also reviewed external records from [facility] to obtain collateral history. The patient [...] this is why she lives in a assisted with 24/7 monitoring and physical therapy that visits her every day. I encouraged her to stay in her wheelchair to get around safely, and if she is transferring from the wheelchair to the toilet or other maneuvers at home, she should do so with nursing staff or PT nearby. She is already on [place] at home for pain so no additional [...] Mendez who is her osteoarthritis specialist in [place]; this is very good follow-up. The patient [...] Medicine Provider Cuba Anna MD 07/20/23 0110 [facility] 09-06-2022 Emergency department Note RN called back from Residence for report after patient left. This RN updated RN. No questions or concerns Lucy Jones RN 09/06/22 111 [facility] 09-06-2022 Emergency department Note RN called back from Residence for report after patient left. This RN updated RN. No questions or concerns Lucy Jones RN 09/06/22 111 This RN attempted report at [facility] for patient. RN's busy, classroom coordinator took RN name and number to return call for report if wanted. Lucy Jones RN 09/06/22 1018 DM ETA 20-30 min ([phone]) Lucy Jones RN 09/06/22 0953 Patient resting [...] Younger RN 09/06/22220 Emergency Department Encounter Location: [facility] EMERGENCY DEPT Patient: Patsy Juan : [...] 445 ms QTC Interval 457 ms P [place] 49 degrees QRS [place] -29 degrees T Wave [place] 11 degrees OR Interval 149 ms XR shoulder 2+ views [...] on Workstation: PEREZ Electronically Signed By: Tiago Charles Electronically Signed Date/Time: 09/06/2022 2:24 AM EDT XR pelvis 1 or 2 views Final Result Upper pelvis is excluded from the ofqvy-hp-wmec. No fracture or dislocation of the imaged pelvis. Report Dictated on Workstation: PEREZ Electronically Signed By: Tiago Charles Electronically Signed Date/Time: 09/06/2022 2:12 AM EDT XR chest 1 view Final Result No focal consolidation or pulmonary edema. Report Dictated on Workstation: PEREZ Electronically Signed By: Tiago Charles Electronically Signed [...] MD [employer] Osman Mccormack MD 09/06/221522 Emergency Department Encounter Location: [facility] EMERGENCY DEPT Patient: Patsy Juan : [...] 445 ms QTC Interval 457 ms P [place] 49 degrees QRS [place] -29 degrees T Wave [place] 11 degrees OR Interval [address] head wo IV [...] hemorrhage or mass effect. Report Dictated on Workstation: PEREZ Electronically Signed By: Tiago Charles Electronically Signed Date/Time: 09/06/2022 2:[address] cervical spine wo IV contrast Final Result No cervical spine fracture. Report Dictated on Electronically Signed By: Tiago Charles Electronically Signed Date/Time: 09/06/2022 2:24 AM EDT XR pelvis 1 or 2 views Final Result Upper pelvis is excluded from the ogqrr-xl-vmbf. No fracture or dislocation of the imaged pelvis. Report Dictated on Workstation: PEREZ Electronically Signed By: Tiago Charles Electronically Signed [...] RN 09/06/22 0221 documented in this encounter [facility] 09-06-2022 Emergency department Note This RN attempted report at [facility] for patient. RN's busy, classroom coordinator took RN name and number to return call for report if wanted. Lucy Jones RN 09/06/22 1018 [facility] 09-06-2022 Emergency department Note DM ETA 20-30 min ([phone]) Lucy Jones RN 09/06/22 0953 [facility] 09-06-2022 Hospital Discharge instructions Gloria [...] through Care Everywhere.Getting Up From a Fall (Swiss)documented in this encounter [facility] 09-06-2022 Emergency department Note Patient resting with eyes closed. Respirations even and unlabored. RN called about work order for call light / panel. Will be there soon to fix. Lucy Jones RN 09/06/22 0944 [facility] [employer] 09-06-2022 History of Present illness Narrative Department of Trauma / Critical Care Tertiary Survey Date of Trauma: 09/06/2022 1:36 AM MARIANELA/HPI: 72 y.o. female status post fall from standing. The incident happened around 0120 on 09/06/[address] [facility]. When the event happened the patient was [...] 09/06/2022 Patient Name: PATSY JUAN : 1950 [facility]#: [id number] Exam Date/Time: 09/06/2022 02:47 Procedure: XR SHOULDER [...] Report Dictated on Electronically Signed By: Tiago Melvin Electronically Signed Date/Time: 09/06/2022 3:11 AM EDT [...] IV contrast Result Date: 09/06/2022 Patient Name: DRAKE, ECHO : 1950 Exam Date/Time: 09/06/2022 02:11 [...] cervical spine fracture. Report Dictated on Workstation: Glance Electronically Signed By: Tiago Charles Electronically Signed [...] note: Upper pelvis is excluded from the ireaq-ej-mqhn. COMPARISON: None. FINDINGS: There is no evidence for fracture or dislocation. The hips joints are unremarkable. The imaged sacroiliac joints are normal. No bone lesion is identified. There is no soft tissue abnormality. Surgical clips project over the right groin. Upper pelvis is excluded from the myehc-ya-itps. No fracture or dislocation of the imaged [...] 09/06/22 9:09 AM documented in this encounter [facility] 09-06-2022 Emergency department Note Pt back in room Lucy Jones RN 09/06/22 0832 [facility] 09-06-2022 Emergency department Note Pt at CT Lucy Jones RN 09/06/22 0826 [facility] 09-06-2022 Emergency department Note Patient [...] this time Lucy Jones RN 09/06/22 0739 [facility] 09-06-2022 Note NOTE: This result is for medical treatment only. Analysis performed using non-forensic procedures. [facility] 09-06-2022 Emergency department Note Pt to x-ray in stable condition. Bárbara Hogan RN 09/06/22225 [facility] 09-06-2022 Emergency department Note Report of to bárbara Younger RN 09/06/22220 [facility] 09-06-2022 Emergency department Note Bed: 23 Expected date: Expected time: Means of arrival: Comments: SX TEAM Aaron Wallace RN 09/06/22220 [facility] 09-06-2022 Physician Emergency department Note Emergency Department Encounter Location: [facility] EMERGENCY DEPT Patient: Patsy Juan : [...] 445 ms QTC Interval 457 ms P [place] 49 degrees QRS [place] -29 degrees T Wave [place] 11 degrees OR Interval 149 ms XR shoulder 2+ views left Final Result No fracture or dislocation. Report Dictated on Electronically Signed By: Tiago Charles Electronically Signed Date/Time: 09/06/2022 3:11 AM EDT XR shoulder 2+ views right Final Result No fracture or dislocation. Report Dictated on Electronically Signed By: Tiago Charlse Electronically Signed Date/Time: 09/06/2022 2:42 AM EDT [...] Result Upper pelvis is excluded from the uksmc-av-tnxx. No fracture or dislocation of the imaged [...] occasionally words are mis-transcribed.) OSMAN MCCORMACK MD [facility] Osman Mccormack MD 09/06/22 1523 [facility] Phone: 09-06-2022 Physician Emergency department Note Emergency Department Encounter Location: [facility] EMERGENCY DEPT Patient: Patsy Juan : [...] 445 ms QTC Interval 457 ms P [place] 49 degrees QRS [place] -29 degrees T Wave [place] 11 degrees OR Interval [address] head wo IV [...] Result Upper pelvis is excluded from the kumho-mb-jhxr. No fracture or dislocation of the imaged [...] Solutions Gloria Frost DO Resident 09/06/22 1314 [facility] Phone: 04-25-2022 Miscellaneous Notes Left a detailed message for patient. Let her know that new PCP will need to be notified if there is issues with filling medicaiton. Advised to contact office with questions. I will send patient a [employer] message asking about PCP. I think she is now seeing a physician at her assisted living facility. Images from the original note were not included. DENIED. Isabela Petit LPN Prior Authorization has been completed online at [employer] for Cycanocobalamin, will await response. WILLIS- [id number] Please keep encounter open until final decision has been received and documented from insurance company. Isabela Petit LPN documented in this encounter [facility] 03-12-2022 Note Hospitalist Discharg e Summary [...] results reviewed, no signs of osteomyelitis. Appreciate nursery teacher recommendations On the day of discharge patient's [...] MG extended re (more content not included)... [facility] 03-12-2022 Hospital course Narrative Images from [...] results reviewed, no signs of osteomyelitis. Appreciate nursery teacher recommendations On the day of discharge patient's [...] as: DESYREL Vitamin D3 50 MCG (1999 MI) Caps warfarin 5 MG tablet Commonly known as: COUMADIN STOP taking these medications furosemide 20 MG tablet Commonly known as: LASIX guaiFENesin 600 MG extended release tablet Commonly known as: MUCINEX Where to Get Your Medications These medications were sent to [address] - P [phone] - F [phone] [place] [address]8574 amoxicillin-clavulanate 875-125 MG per tablet doxycycline hyclate 100 MG capsule polyethylene glycol 17 g packet Recommended Follow-up: No follow-up provider specified. Readmission Risk Risk of Unplanned Readmission: 16 Complexity of Follow up: [] Moderate Complexity: follow up within 7-14 calendar days (30143) [x] Severe Complexity: follow up within 7 calendar days (17350) Follow up Testing, Pending results or Referrals [...] MD Division of Hospitalist Medicine Inpatient Medical Services/[facility] 03/12/2022, 2:01 PM [...] results reviewed, no signs of osteomyelitis. Appreciate nursery teacher recommendations On the day of discharge patient's [...] Your Medications These medications were sent to [address] [phone] - F [phone] [place] [address]9977 amoxicillin-clavulanate 875-125 MG per tablet doxycycline hyclate 100 MG capsule polyethylene glycol 17 g packet Recommended Follow-up: No follow-up provider specified. Readmission Risk Risk of Unplanned Readmission: 15 Complexity of Follow up: [] Moderate Complexity: follow up within 7-14 calendar days (40541) [x] Severe Complexity: follow up within 7 calendar days (68581) Follow up Testing, Pending results or Referrals [...] MD Division of Hospitalist Medicine Inpatient Medical Services/[facility] 03/11/2022, 1:36 PM documented in this encounter [facility] Phone: 03-11-2022 History of Present illness Narrative [facility] called this nurse to change time of brick picker. Pt agreed to stay till morning. This nurse called [facility] to inform about new brick picker time of 9:30 am. Report called to Nurse Copeland at [facility]. Occupational Therapy Facility/Department: [facility] Occupational Therapy Daily Treatment Note Name: Randolph Hunter : 1950 Date of Service: 03/11/2022 Pt's chart reviewed. Holding therapy today due to >5 INR. Will continue to follow and re-attempt once within therapeutic range. Dianne Schuster OT Physical Therapy Facility/Department: [facility] Daily Treatment Note Name: Randolph Hunter : 1950 Date of Service: 03/11/2022 Pt's chart reviewed. Holding therapy today due to >5 INR. Will continue to follow and re-attempt once within therapeutic range. Jaida Matamoros PTA Occupational Therapy Facility/Department: [facility] Occupational Therapy Initial Assessment Name: Randolph Hunter DOB: 1950 Date of Service: 03/10/2022 Discharge Recommendations: [...] Social/Functional History Social/Functional History Lives With: Spouse ([place].) Type of Home: Assisted living Home Layout: [...] Assistance: Non-ambulatory Transfer Assistance: Needs assistance Active Leather Dresser: No Patient's Leather Dresser Info: daughter Mode of Transportation: Car Education: na Occupation: Retired Type of Occupation: worked at [employer] Objective Heart Rate: 68 Heart Rate [...] degrees shoulder flexion grossly observed AM-PAC Score AM-PAC Inpatient Daily Activity Raw Score: 16 (03/10/22 1444) AM-PAC Inpatient ADL T-Scale Score : 35.96 (03/10/22 [...] were not included. Hospitalist Progress Note 03/10/2022 [phone]: Please page me ([phone]) for patient care issues. [phone]: Please page [facility] night Hospitalist for any issues. Subjective: Admit [...] results reviewed, no signs of osteomyelitis. Appreciate nursery teacher recommendations Pharmacy is managing Coumadin dosing. -am labs, replace lytes prn -increase activity -DVT prophylaxis: [] Lovenox [] Heparin [] SCDs [x] Encourage ambulation [x] Already on Anticoagulation Advance Directive: Limited Discharge planning: TBD Demetris Stone MD Division of Hospitalist Medicine Inpatient Medical Services/[facility] PAGER: [phone] Occupational Therapy Facility/Department: [facility] Occupational Therapy Initial Assessment [...] Will follow. Thank you. Physical Therapy Facility/Department: [facility] Physical Therapy Initial Assessment [...] Social/Functional History Social/Functional History Lives With: Spouse ([place].) Type of Home: Assisted living Home Layout: [...] Assistance: Non-ambulatory Transfer Assistance: Needs assistance Active Leather Dresser: No Patient's Leather Dresser Info: daughter Mode of Transportation: Car Education: na Occupation: Retired Type of Occupation: worked at [employer] Vision/Hearing Vision Vision: Within Functional Limits Vision [...] to side-step toward the HOB. Able to cnc cutting operator FWW for 10 seconds with moderate assistance for balance. Balance Posture: Fair Sitting - Static: Good;- Sitting - Dynamic: Good;- Standing - Static: Poor Standing - Dynamic: Poor OutComes Score AM-PAC Score AM-PAC Inpatient Mobility Raw Score : 12 (03/09/22 131) AM-PAC Inpatient T-Scale Score : 35.33 (03/09/22 131) Mobility Inpatient CMS 0-100% Score: 68.66 (03/09/22 131) Mobility Inpatient CMS G-Code Modifier : CL (03/09/22 131) Tinneti Score Goals Short Term Goals Time [...] were not included. Hospitalist Progress Note 03/09/2022 [phone]: Please page me ([phone]) for patient care issues. [phone]: Please page [facility] night Hospitalist for any [...] MD Division of Hospitalist Medicine Inpatient Medical Services/[facility] PAGER: [phone] Pharmacy Vancomycin Consult Follow-Up Note Current Dosin [...] 1500 q 24 Pharmacy Note Vancomycin Consult Non-SCHOOL [employer] patients Randolph Hunter is a 71 y.o. [...] Phone: 03-11-2022 Note Hospitalist Discharg e Summary aRndolph Hunter : 1950 Admit date: 03/08/2022 Discharge [...] results reviewed, no signs of osteomyelitis. Appreciate nursery teacher recommendations On the day of discharge patient's [...] Your Medications These medications were sent to [address] - P [phone] - F [phone] [place] [address] (more content not included)... [facility] 03-11-2022 Hospital Discharge instructions Cleo Graff LPN - 03/11/2022 11:55 AM EDT Your physician has ordered skilled home care services for you. Your home care will be provided by: [facility] [phone] Viktoriya Danielson RN - 03/11/2022 5:43 PM [...] Mobile Relation: Child Secondary Emergency Contact: JohanAdam ([facility]) Mobile Relation: Spouse Past Surgical History: History [...] Dependent Dressing Dependent Toileting Dependent Feeding Independent Transportation Worker Assisted Med Delivery whole Wound Care Documentation [...] Amount Scant 03/10/22 0810 Odor None 03/10/22 08 Andra-wound Assessment Blanchable erythema;Dry/flaky;Intact 03/10/22210 Number of [...] 800 [Urine:800] Safety Concerns: { FARHAN Safety Concerns:991600363} Impairments/Disabilities: { AFRHAN Impairments/Disabilities:271962162 } Nutrition Therapy: Current Nutrition Therapy: - Oral Diet: General Routes of Feeding: Oral Liquids: Thin Liquids Daily Fluid Restriction: no Last Modified Barium Swallow with Video (Video Swallowing Test): not done Treatments at the Time of Hospital Discharge: Respiratory Treatments: no Oxygen Therapy: is not on home oxygen therapy. Ventilator: - No ventilator support Rehab Therapies: none Weight Bearing Status/Restrictions: {[facility] Weight Bearin} Other Medical Equipment (for information [...] applicable) Name: Address: Dialysis Schedule: Phone: Fax: Molded Goods Inspector Trimmer/Tar Distributor Operator signature: {Esignature:835056596} PHYSICIAN SECTION Prognosis: {Prognosis:4255378896} Condition at Discharge: { Patient Condition:824350543} Rehab Potential (if transferring to Rehab): {Prognosis:9325108260} Recommended Labs or Other Treatments After Discharge: Physician Certification: I certify the above information and transfer of Randolph Hunter is necessary for the continuing treatment of the diagnosis listed and that she requires {Admit to Appropriate Level of Care:49818} for {GREATER/LESS:420503976} 30 days. Update Admission H&P: {CHP DME Changes in HandP:117754315} PHYSICIAN SIGNATURE: {Esignature:981848661} documented in this encounter [facility] Work Phone: 03-06-2022 Instructions Steven Pelaez - 03/06/2022 9:21 AM EDT Would recommend natalia to left foot daily Continue with padding on dressing to eliminate pressure Would highly recommend use of heel boots while sleeping to prevent pressure sores from developing. documented in this encounter [facility] 03-06-2022 History of Present illness Narrative [...] wound may be improving. PAIN EVALUATION 03/06/2022 09 Pain Level: 8 Pain Location: Foot-Left Description: Numbness;Shooting Duration Units: Weeks Frequency: Continuous Intervention/Comfort measure: Medication Comments: using natalia to wound and wrapping with gauze Hemoglobin A1C Date Value Ref Range Status 08/15/2021 6.4 (H) 4.3 - 5.6 % Final Comment: [place] Diabetes Association guidelines indicate that patients with [...] directed once a month. blood sugar diagnostic (ClaritureUCH VERIO TEST STRIPS) test strip Test blood [...] breathe hourly while awake. PT/INR test meter (Perfect MemoryGUCHEK XS PRO) misc Check Protime weekly. Dx: [...] H* Mental Status Change Penicillins Hives Dioxicillin Ajmbulb-Dnm-Pqa Red* Myalgia PAST SURGICAL HISTORY Procedure Laterality [...] mellitus, with fat layer exposed ([facility]) (primary encounter diagnosis) (E11.40) Type 2 diabetes, [...] wrapping with gauze documented in this encounter [facility] 02-28-2022 Miscellaneous Notes Patient called in requesting order for wound care. Patient stated that she is at a assisted living facility and they stated by law they most have and order from physician to preform wound care. Please place order. Erlinda Ramsey LPN documented in this encounter [facility] 02-27-2022 History of Present illness Narrative Patient daughter picked up natalia. Erlinda Ramsey LPN documented in this encounter [facility] 02-27-2022 Miscellaneous Notes Returned patients call. Informed patient that her daughter can come brick picker natalia we will just have to [...] instructions. Patient can come to office to brick picker natalia. We will schedule a nurse visit. Erlinda Ramsey LPN Images from the original note were not included. Steven Matamoros RN; [facility] Podiatry Pool 52 minutes ago (3:52 PM) I have not yet ordered the natalia to pharmacy. If she wishes to brick picker at office, that may be the easiset option Steven Pelaez DPM Patient called in asking if Natalia has been sent to pharmacy? Patient asking if she can come by and brick picker Natalia from the office? Patient states she had to cancel this morning's appointment because her transportation never showed. Patient asking for order for Natalia to be sent to [facility]. Rescheduled follow up appointment for 03/06. documented in this encounter [facility] 02-12-2022 Miscellaneous Notes Patient called in looking for results. Message from Dr. Pelaez given to patient. She verbalized understanding. documented in this encounter [facility] 02-10-2022 History of Present illness Narrative [...] 2022 9:22 AM documented in this encounter [facility] 02-10-2022 Marian Pelaez - 02/10/2022 8:37 AM EDT Recommend natalia to left foot ulceration daily Would recommend placing a donut hole pad on insert to offload ulceration when wearing shoes. Color ulceration with magic marker Step on insert Place pad around marking at site of ulceration Follow-up in 2 weeks Use loyda wraps for swelling reduction. documented in this encounter [facility] 02-10-2022 History of Present illness Narrative Chief Complaint: This 71 year old female who presents with chief complaint:ulceration of left 1st metatarsal HPI Patient presents to clinic for evaluation of left foot. Patient has ulceration to the plantar aspect of left 1st metatarsa. It apparently has been present for 1.5 months. She has been seeing a nursery teacher in [place] who has been debriding and applying topical antibiotic cream. Patient is not currently wearing surgical shoe. She had similar ulceraiton last year and was treated with natalia. When she mentioned this to her nursery teacher, she was referred here. She was advised [...] directed once a month. blood sugar diagnostic (CasterStatsTOUCH VERIO TEST STRIPS) test strip Test blood [...] H* Mental Status Change Penicillins Hives Dioxicillin Tubojxk-Zla-Ygn Red* Myalgia PAST SURGICAL HISTORY Procedure Laterality [...] weeks Steven Pelaez DPM Podiatry [address] [facility] [address] Dept: [phone] Dept AMB ROOMING INTAKE FLOWSHEET DATA Risk [...] Erlinda Ramsey LPN documented in this encounter [facility] 11-30-2021 Miscellaneous Notes Left a detailed [...] Bonnie Allen LPN documented in this encounter [facility] 11-19-2021 Miscellaneous Notes Detailed message left with dosage instructions Change to 7.5 mg M and F. 5 mg a day rest of the week. Recheck one week. Last INR: INR (POCT) 3.4 11/19/2021 815 am Current dose of coumadin is: 7.5 mg M-W-F and 5 mg all other days . Last date of dose change: 11/11/2021. Previous INR (date and result): 1.6 on 11/11/2021 Additional Clinical Information or narrative: no documented in this encounter [facility] 11-11-2021 Miscellaneous Notes Patient calling to ask for coumadin instructions. Went over notes below from Dr Sultana remain on same dose, 7.5 mg Wed, Fri and 5 mg all other days and [...] no diet changes. documented in this encounter [facility] 10-30-2021 Miscellaneous Notes Patient notified of [...] or narrative: no documented in this encounter [facility] 10-15-2021 Miscellaneous Notes Left a detailed [...] Ava Rdz LPN documented in this encounter [facility] 10-15-2021 Miscellaneous Notes Spoke with pt and went over the results. Pt verbalizes understanding. Ava Rdz LPN documented in this encounter [facility] 10-14-2021 History of Present illness Narrative [...] PERIPHERAL IV DATA: Not applicable SIGNED BY: Fabian Rivas RT(R) October 14, 2021 3:03 PM documented in this encounter [facility] 10-09-2021 Miscellaneous Notes Pt called and [...] Patient calls and states that her previous router setter had moved out of country. Patient states that she is in process of moving into assisted living and the [facility] will see her in regards to this. Patient asking if this can be filled for a 30 day supply? Please review and advise, Lexi Arce RN TC to pt. LM to call office, ask for triage nurse to get updates. Travis Chambers LPN Linen Room Custodian accepting patient transfer should refill medication. Who are the current and future providers? We generally don't prescribe this medication. Thanks, Edwin Cobian PA-C Pt is asking if provider will order this medication for her for 1 month. She states her router setter will not refill it for her because [...] Del Decker RN documented in this encounter [facility] 10-08-2021 Miscellaneous Notes Patient instructed of [...] or bleeding issues. documented in this encounter [facility] 10-01-2021 Miscellaneous Notes Patient instructed of [...] or bleeding issues. documented in this encounter [facility] 10-01-2021 Miscellaneous Notes Refaxed form with [...] call and advise. documented in this encounter [facility] 09-27-2021 Miscellaneous Notes Patient notified of results, verbalizes understanding of instructions. Travis Chambers LPN Thyroid is improving but still slightly low. Can we change synthroid to 150 mcg and recheck tsh in six weeks documented in this encounter [facility] 09-26-2021 Instructions Baudilio Sultana MD - [...] usual activities immediately. documented in this encounter [facility] 09-26-2021 History of Present illness Narrative Patient presents with: Physical: moving into assisted living HPI: Patient presents today for office visit for follow up. Needs forms completed for assisted living facility[facility] in [place]. She is both excited and nervous about the move. Will be transitioning to [facility]. She asked us to do the [place] through October until the new physician has [...] directed once a month. blood sugar diagnostic (AppLearn VERIO TEST STRIPS) test strip Test blood [...] H* Mental Status Change Penicillins Hives Dioxicillin Pbowoip-Vng-Phs Red* Myalgia PAST MEDICAL HISTORY Diagnosis Date [...] forms completed. Will give script for her norco. - CONSULT TO PHYSICAL THERAPY - CONSULT TO CHILDREN'S INSTITUTION ATTENDANT 2. Carotid artery disease, unspecified laterality, unspecified [...] physician and prn. documented in this encounter [facility] 09-25-2021 Miscellaneous Notes Patient notified and voiced understanding. Roxann Gomez MA Same recheck one week Patient called in with home INR. Last INR: INR (POCT) 2.2 (ext) 09/25/2021 Current dose of coumadin is: 7.5 mg on and Thu, 5 mg all other days. Previous INR (date and result): 1.9 on 09/11/21 Additional Clinical Information or narrative: no documented in this encounter [facility] 09-18-2021 Miscellaneous Notes Patient notified and [...] or bleeding issues. documented in this encounter [facility] 2021 Miscellaneous Notes TC to pt, [...] week. Recheck INR in one week. Najma Dobsb APRN.JOHN Last INR: INR (POCT) 1.9 (EXT) [...] or missed doses. documented in this encounter [facility] 01-29-2021 History of Present illness Narrative [...] 2021 1:01 PM documented in this encounter [facility] 01-04-2018 History of Past i llness [...] of this encounter (statuses as of 09/16/2021) [facility] History of Past illness Narrative* Problem [...] of this encounter (statuses as of 09/18/2021) [facility] History of Past illness Narrative* Problem [...] of this encounter (statuses as of 2021) [facility] History of Past illness Narrative* Problem [...] of this encounter (statuses as of 09/25/2021) [facility] History of Past illness Narrative* Problem [...] of this encounter (statuses as of 09/26/2021) [facility] History of Past illness Narrative* Problem [...] of this encounter (statuses as of 09/27/2021) [facility] History of Past illness Narrative* Problem [...] of this encounter (statuses as of 10/01/2021) [facility] History of Past illness Narrative* Problem [...] of this encounter (statuses as of 10/01/2021) [facility] History of Past illness Narrative* Problem [...] of this encounter (statuses as of 10/09/2021) [facility] History of Past illness Narrative* Problem [...] of this encounter (statuses as of 10/15/2021) [facility] History of Past illness Narrative* Problem [...] of this encounter (statuses as of 10/15/2021) [facility] History of Past illness Narrative* Problem [...] of this encounter (statuses as of 10/15/2021) [facility] History of Past illness Narrative* Problem [...] of this encounter (statuses as of 10/30/2021) [facility] History of Past illness Narrative* Problem [...] of this encounter (statuses as of 11/11/2021) [facility] History of Past illness Narrative* Problem [...] of this encounter (statuses as of 11/19/2021) [facility] History of Past illness Narrative* Problem [...] of this encounter (statuses as of 11/30/2021) [facility] History of Past illness Narrative* Problem [...] of this encounter (statuses as of 12/23/2021) [facility] History of Past illness Narrative* Problem [...] of this encounter (statuses as of 02/10/2022) [facility] of Past illness Narrative* Problem [...] of this encounter (statuses as of 02/11/2022) [facility] of Past illness Narrative* Problem [...] of this encounter (statuses as of 02/12/2022) [facility] History of Past illness Narrative* Problem [...] of this encounter (statuses as of 02/27/2022) [facility] History of Past illness Narrative* Problem [...] of this encounter (statuses as of 03/03/2022) [facility] of Past illness Narrative* Problem [...] of this encounter (statuses as of 03/06/2022) [facility] of Past illness Narrative* Problem [...] of this encounter (statuses as of 04/25/2022) [facility] of Past illness Narrative* Problem [...] of this encounter (statuses as of 06/25/2022) [facility] of Past [facility] Narrative* Problem [...] unspecified whether generalized or localized, lower leg 12/26/20130 12/2013 Cough 09/09/2013 11/08/2014 Laryngitis 09/09/2013 11/08/2014 [...] of this encounter (statuses as of 05/04/2023) [facility] History of Past illness Narrative* Problem [...] whether generalized or localized, lower leg 12/26/2013 070 12/2013 Cough 09/09/2013 11/08/2014 Laryngitis 09/09/2013 11/08/2014 [...] encounter (statuses as of 05/04/2023) [facility] note* Diagnosis History of pulmonary embolism Personal history of pulmonary embolism [facility]* Diagnosis History of pulmonary embolism Personal history of pulmonary embolism [facility]* Diagnosis Cerebral palsy, unspecified type (HCC)- [...] or radiculitis nos documented in this encounter [facility] noteNo assessment information availableWJoint [facility] Work Phone: Evaluation note* Diagnosis Acquired hypothyroidism Unspecified hypothyroidism documented in this encounter [facility] note* Diagnosis Disorder of bone and cartilage Disorder of bone and cartilage, unspecified [facility]* Diagnosis Encounter for screening mammogram for breast cancer [facility]* Diagnosis Type 2 diabetes, controlled, with neuropathy (HCC)- Primary Type II or unspecified type diabetes mellitus with neurological manifestations, not stated as uncontrolled Diabetic ulcer of toe 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, with fat layer exposed (HCC) [facility]* Diagnosis Diabetic ulcer of toe 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, with fat layer exposed (HCC) [facility]* Diagnosis Diabetic ulcer of toe 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, with fat layer exposed (HCC)- Primary [facility]* Diagnosis Diabetic ulcer of toe 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, with fat layer exposed (HCC)- Primary Type 2 diabetes, controlled, with neuropathy ([facility]) Type II or unspecified type diabetes mellitus with neurological manifestations, not stated as uncontrolled [facility]* Diagnosis Diabetic ulcer of other part 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, with fat layer exposed (HCC)- Primary Cellulitis of left lower extremity Cellulitis and abscess of leg, except foot PE (pulmonary thromboembolism) (HCC) Chronic pulmonary embolism Cellulitis Cellulitis and abscess of unspecified site [facility]: Evaluation note* Diagnosis Diabetic ulcer of toe 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, with fat layer exposed (HCC)- Primary documented in this encounter [facility] note* Diagnosis Fall, initial encounter- Primary Skin tear of hand without complication Cephalohematoma Other injuries to scalp Acute pain of right shoulder [facility] Diagnosis Exacerbation of asthma, unspecified asthma [...] skin and nails [facility]* Diagnosis Frequent falls- Primary Right hip pain Pain in joint, pelvic region and thigh Contusion of right knee, initial encounter Osteoarthritis, unspecified osteoarthritis type, unspecified site documented in this encounter [facility] note* Diagnosis Diabetic ulcer of left foot associated with diabetes mellitus due to underlying condition, unspecified part of foot, unspecified ulcer stage (HCC)- Primary Left leg cellulitis documented in this encounter [facility] note* Diagnosis Pressure ulcer of right foot, stage 3 (HCC)- Primary documented in this encounter [facility] note* Diagnosis Chronic right shoulder pain Pain in joint, shoulder region documented in this encounter [facility] note* Diagnosis Acute cough- Primary documented in this encounter [facility] note* Diagnosis Fall at home, initial [...] manifestations, not stated as uncontrolled Atherosclerosis of [place] coronary artery of [place] heart without angina pectoris Other pulmonary embolism without acute cor pulmonale, unspecified chronicity (HCC) Debility Debility, unspecified documented in this encounter [facility] note* Diagnosis Fall at home, initial encounter- [...] Neuropathy Mononeuritis of unspecified site Atherosclerosis of [place] coronary artery of [place] heart without angina pectoris Other pulmonary embolism without acute cor pulmonale, unspecified chronicity (HCC) Debility Debility, unspecified documented in this encounter [facility] note* Diagnosis Fall at home, initial encounter- [...] manifestations, not stated as uncontrolled Atherosclerosis of [place] coronary artery of [place] heart without angina pectoris Other pulmonary embolism without acute cor pulmonale, unspecified chronicity (HCC) Debility Debility, unspecified documented in this encounter [facility] note* Diagnosis Primary osteoarthritis of left knee- Primary Primary localized osteoarthrosis, lower leg documented in this encounter [facility] note* Diagnosis Sprain of left ankle, unspecified ligament, initial encounter- Primary Ankle instability, left Chronic pain of left ankle documented in this encounter [facility] note* Diagnosis Sprain of left ankle, unspecified ligament, initial encounter Ankle instability, left documented in this encounter [facility] for referral (narrative)* Diagnostic Procedure Only (Routine) - Pending Review Specialty Diagnoses / Procedures Referred By Enrique cueva Referred To Contact BR IMAGING Diagnoses Encounter for screening mammogram for breast cancer Procedures FUAD SCREENING SCREENING MAMMOGRAPHY BI 2-VIEW BREAST INC CAD Baudilio Sultana MD [address] [place] [address] [facility] [address] [place] [address] Referral ID Status Reason Start Date Expiration Date Visits Requested Visits Authorized [id number] Pending Review Auto-Generat ed Referral 12/18/2021 01/17/[address] [facility] for referral (narrative)* Diagnostic Procedure Only (Routine) - Closed Specialty Diagnoses / Procedures Referred By Enrique t Referred To Contact XR IMAGING Diagnoses Diabetic ulcer of toe 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, with fat layer exposed (HCC) Procedures XR FOOT GENERAL 3V AP/LAT/OBL LEFT RADEX FOOT COMPLETE MINIMUM 3 VIEWS Steven Pelaez [address] [place] [address] Xr Imaging Referral ID Status Reason Start Date Expiration Date V isits Requested Visits Authorized [id number] Closed Auto-Generate d Referral 02/10/2022 03/12/[address] [facility] for referral (narrative)* Diagnostic Procedure Only (Routine) - Closed Specialty Diagnoses / Procedures Referred By Contac t Referred To Contact XR IMAGING Diagnoses Diabetic ulcer of toe 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, with fat layer exposed (HCC) Procedures XR FOOT GENERAL 3V AP/LAT/OBL LEFT RADEX FOOT COMPLETE MINIMUM 3 VIEWS Steven Pelaez [address] [place] [address] Xr Imaging Referral ID Status Reason Start Date Expiration Date V isits Requested Visits Authorized [id number] Closed Auto-Generate d Referral 02/10/2022 03/12/[address] [facility] for visit Narrative* Diagnostic Procedure Only (Routine) - Closed Specialty Diagnoses / Procedures Referred By Contac t Referred To Contact Radiology / RADIO BONE DENSITY [facility] Diagnoses Disorder of bone and cartilage [M89.9, M94.9] Procedures BONE DENSITY ADULT 225 Baudilio Sultana MD [address] [place] [address] [facility] [address] [place] [address] Referral ID Status Reason Start Date Expiration Date Visits Re quested Visits Authorized [id number] Closed 10/14/2021 06/21/[address] 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 for visit Narrative* Diagnostic Procedure Only (Routine) - Closed Specialty Diagnoses / Procedures Referred By Contac t Referred To Contact XR IMAGING Diagnoses Sprain of left ankle, unspecified ligament, initial encounter Ankle instability, left Procedures XR TIBIA FIBULA 2V AP/LAT LEFT RADIOLOGIC EXAMINATION TIBIA & FIBULA [address] [place] [address] Phone: tel: fax: [place] [address] Referral ID Status Reason Start Date Expiration Date V isits Requested Visits Authorized [id number] Closed Auto-Generate d Referral 10/27/2024 11/26/[address] [facility] Summary Purpose Family History No Family [...] FoundDocuments on File Type Date Recorded Patient Warrant Server Expl anation Advance Directive(s) 11/24/2016 2:36 PM Advance Directive(s) 10/24/2016 10:01 AM Advance Directive(s) 12/26/2013 2:29 PM Documents on File Type Date Recorded Patient Warrant Server Expl anation Advance Directive(s) 11/24/2016 2:36 PM Advance Directive(s) 10/24/2016 10:01 AM Advance Directive(s) 12/26/2013 2:29 PM Advance Directive Response Recorded Date/ Time Advance Directives Yes January 04 7:42pm Living Will Yes April 22 10:07pm Power of Cut Press Operator Yes April 22, 2021 10:07pm Documents on File Type Date Recorded Patient Warrant Server Expl anation Advance Directive(s) 12/26/2013 2:29 PM Documents on File Type Date Recorded Patient Warrant Server Expl anation Advance Directive(s) 12/26/2013 2:29 PM Latest Code Status on File Code Status Date Activated Date Inactivated Comments Limited 03/08/2022 4:21 PM Intubation/Re-intubation at the time of arrest: No Defibrillation/Cardioversion: No Chest Compressions: No Resuscitative Medications: Yes Healthcare Agents on File Name Relationship Healthcare Agent [facility] Communication Lisha Holly Child Primary Decision Maker Documents on File Type Date Recorded Patient Warrant Server Expl anation DNR (Do Not Resuscitate) 12/18/2023 10:52 AM Reason for Referral Specialty Diagnoses / Procedures Referred By Contac t Referred To Contact [facility] Diagnoses Cerebral palsy, unspecified type (HCC) Procedures CONSULT TO CHILDREN'S INSTITUTION ATTENDANT OCCUPATIONAL THERAPY EVAL HIGH COMPLEX [place] [address] [place] [address] [facility] [address] [address] Referral ID Status Reason Start Date Expiration Date Visits Requested Visits Authorized [id number] Pending Review Auto-Generat ed Referral 09/26/2021 09/26/2022 1 1 Specialty Diagnoses / Procedures Referred By Contac t Referred To Contact [facility] Diagnoses Cerebral palsy, unspecified type (HCC) Procedures CONSULT TO PHYSICAL THERAPY PHYSICAL THERAPY EVALUATION HIGH COMPLEX 45 MINS Baudilio Sultana MD [address] [place] [address] [facility] [address] [address] Referral ID Status Reason Start Date Expiration Date Visits Requested Visits Authorized [id number] Pending Review Auto-Generat ed Referral 09/26/2021 09/26/2022 1 1 Specialty Diagnoses / Procedures Referred By Contac t Referred [facility] Diagnoses Carotid artery disease, unspecified laterality, unspecified type ([facility]) Procedures US CAROTID ARTERIES DUSTIN VAS LAB DUPLEX SCAN EXTRACRANIAL ART COMPL BI STUDY Baudilio Sultana MD [address] [place] [address] [facility] [address] [address] Referral ID Status Reason Start Date Expiration Date Visits Requested Visits Authorized [id number] Additional Clinical Info Needed Auto-Generat ed Referral 09/26/2021 09/26/2022 1 1 Specialty Diagnoses / Procedures Referred By Contac t Referred To Contact Wound Care / IP Unit Diagnoses Diabetic ulcer of other part 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, with fat layer exposed (HCC) Ritika Fonseca, 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 - CLASSIFICATION CONTROL CLERK [address] [place] [address] [facility] [address] [place] [address] Referral ID Status Reason Start Date Expiration Date V isits Requested Visits Authorized [id number] Open Specialty Services Required 03/11/2022 03/11/2023 1 1 Scheduling Instructions [facility] Wound Care/Hyperbaric [facility] [address] [place] [address] Comments Wound Center/Hyperbaric Medicine is located on the ground floor of [facility] (just behind registration). Bring photo ID and [...] section and content) DATE CREATED AUTHOR 12/11/2017 [facility] dical Center DATE CREATED AUTHOR AUTHOR'S ORGANIZ ATION 12/11/2017 [facility] DATE CREATED AUTHOR AUTHOR'S ORGANIZ ATION 03/31/2022 [facility] [facility] DATE CREATED AUTHOR AUTHOR'S ORGANIZ ATION 09/08/2022 [facility] DATE CREATED AUTHOR AUTHOR'S ORGANIZ ATION 07/11/2024 [facility] DATE CREATED AUTHOR AUTHOR'S ORGANIZ ATION 10/01/2024 [facility] DATE CREATED AUTHOR AUTHOR'S ORGANIZ ATION 11/09/2024 [facility] DATE CREATED AUTHOR AUTHOR'S ORGANIZ ATION 02/15/2025 [facility] DATE CREATED AUTHOR AUTHOR'S ORGANIZ ATION 02/26/2025 [facility] Source Comments (unrecognize d section and content) In the event this informatio n is protected by the Federal Confidentiality of Alcohol and Drug Abuse Patient Records regulations: The Federal rules restrict any use of the information to criminally investigate or prosecute any alcohol or drug abuse patient.[facility] the event this information is protected by the Federal Confidentiality of Alcohol and Drug Abuse Patient Records regulations: The Federal rules restrict any use of the information to criminally investigate or prosecute any alcohol or drug abuse patient.[facility] HospitalIn the event this information is protected by the Federal Confidentiality of Alcohol and Drug Abuse Patient Records regulations: The Federal rules restrict any use of the information to criminally investigate or prosecute any alcohol or drug abuse patient.[facility] HospitalIn the event this information is protected by the Federal Confidentiality of Alcohol and Drug Abuse Patient Records regulations: The Federal rules restrict any use of the information to criminally investigate or prosecute any alcohol or drug abuse patient.[facility] HospitalIn the event this information is protected by the Federal Confidentiality of Alcohol and Drug Abuse Patient Records regulations: The Federal rules restrict any use of the information to criminally investigate or prosecute any alcohol or drug abuse patient.[facility] HospitalIn the event this information is protected by the Federal Confidentiality of Alcohol and Drug Abuse Patient Records regulations: The Federal rules restrict any use of the information to criminally investigate or prosecute any alcohol or drug abuse patient.[facility] HospitalIn the event this information is protected by the Federal Confidentiality of Alcohol and Drug Abuse Patient Records regulations: The Federal rules restrict any use of the information to criminally investigate or prosecute any alcohol or drug abuse patient.[facility] HospitalIn the event this information is protected by the Federal Confidentiality of Alcohol and Drug Abuse Patient Records regulations: The Federal rules restrict any use of the information to criminally investigate or prosecute any alcohol or drug abuse patient.[facility] HospitalIn the event this information is protected by the Federal Confidentiality of Alcohol and Drug Abuse Patient Records regulations: The Federal rules restrict any use of the information to criminally investigate or prosecute any alcohol or drug abuse patient.[facility] HospitalIn the event this information is protected by the Federal Confidentiality of Alcohol and Drug Abuse Patient Records regulations: The Federal rules restrict any use of the information to criminally investigate or prosecute any alcohol or drug abuse patient.[facility] HospitalIn the event this information is protected by the Federal Confidentiality of Alcohol and Drug Abuse Patient Records regulations: The Federal rules restrict any use of the information to criminally investigate or prosecute any alcohol or drug abuse patient.[facility] HospitalIn the event this information is protected by the Federal Confidentiality of Alcohol and Drug Abuse Patient Records regulations: The Federal rules restrict any use of the information to criminally investigate or prosecute any alcohol or drug abuse patient.[facility] HospitalIn the event this information is protected by the Federal Confidentiality of Alcohol and Drug Abuse Patient Records regulations: The Federal rules restrict any use of the information to criminally investigate or prosecute any alcohol or drug abuse patient.[facility] HospitalIn the event this information is protected by the Federal Confidentiality of Alcohol and Drug Abuse Patient Records regulations: The Federal rules restrict any use of the information to criminally investigate or prosecute any alcohol or drug abuse patient.[facility] HospitalIn the event this information is protected by the Federal Confidentiality of Alcohol and Drug Abuse Patient Records regulations: The Federal rules restrict any use of the information to criminally investigate or prosecute any alcohol or drug abuse patient.[facility] HospitalIn the event this information is protected by the Federal Confidentiality of Alcohol and Drug Abuse Patient Records regulations: The Federal rules restrict any use of the information to criminally investigate or prosecute any alcohol or drug abuse patient.[facility] HospitalIn the event this information is protected by the Federal Confidentiality of Alcohol and Drug Abuse Patient Records regulations: The Federal rules restrict any use of the information to criminally investigate or prosecute any alcohol or drug abuse patient.[facility] HospitalIn the event this information is protected by the Federal Confidentiality of Alcohol and Drug Abuse Patient Records regulations: The Federal rules restrict any use of the information to criminally investigate or prosecute any alcohol or drug abuse patient.[facility] HospitalIn the event this information is protected by the Federal Confidentiality of Alcohol and Drug Abuse Patient Records regulations: The Federal rules restrict any use of the information to criminally investigate or prosecute any alcohol or drug abuse patient.[facility] HospitalIn the event this information is protected by the Federal Confidentiality of Alcohol and Drug Abuse Patient Records regulations: The Federal rules restrict any use of the information to criminally investigate or prosecute any alcohol or drug abuse patient.[facility] HospitalIn the event this information is protected by the Federal Confidentiality of Alcohol and Drug Abuse Patient Records regulations: The Federal rules restrict any use of the information to criminally investigate or prosecute any alcohol or drug abuse patient.[facility] HospitalIn the event this information is protected by the Federal Confidentiality of Alcohol and Drug Abuse Patient Records regulations: The Federal rules restrict any use of the information to criminally investigate or prosecute any alcohol or drug abuse patient.[facility] HospitalIn the event this information is protected by the Federal Confidentiality of Alcohol and Drug Abuse Patient Records regulations: The Federal rules restrict any use of the information to criminally investigate or prosecute any alcohol or drug abuse patient.[facility] HospitalIn the event this information is protected by the Federal Confidentiality of Alcohol and Drug Abuse Patient Records regulations: The Federal rules restrict any use of the information to criminally investigate or prosecute any alcohol or drug abuse patient.[facility] HospitalIn the event this information is protected by the Federal Confidentiality of Alcohol and Drug Abuse Patient Records regulations: The Federal rules restrict any use of the information to criminally investigate or prosecute any alcohol or drug abuse patient.[facility] HospitalIn the event this information is protected by the Federal Confidentiality of Alcohol and Drug Abuse Patient Records regulations: The Federal rules restrict any use of the information to criminally investigate or prosecute any alcohol or drug abuse patient.[facility] HospitalIn the event this information is protected by the Federal Confidentiality of Alcohol and Drug Abuse Patient Records regulations: The Federal rules restrict any use of the information to criminally investigate or prosecute any alcohol or drug abuse patient.[facility] HospitalIn the event this information is protected by the Federal Confidentiality of Alcohol and Drug Abuse Patient Records regulations: The Federal rules restrict any use of the information to criminally investigate or prosecute any alcohol or drug abuse patient.[facility] HospitalIn the event this information is protected by the Federal Confidentiality of Alcohol and Drug Abuse Patient Records regulations: The Federal rules restrict any use of the information to criminally investigate or prosecute any alcohol or drug abuse patient.[facility] HospitalIn the event this information is protected by the Federal Confidentiality of Alcohol and Drug Abuse Patient Records regulations: The Federal rules restrict any use of the information to criminally investigate or prosecute any alcohol or drug abuse patient.[facility] HospitalIn the event this information is protected by the Federal Confidentiality of Alcohol and Drug Abuse Patient Records regulations: The Federal rules restrict any use of the information to criminally investigate or prosecute any alcohol or drug abuse patient.[facility] HospitalIn the event this information is protected by the Federal Confidentiality of Alcohol and Drug Abuse Patient Records regulations: The Federal rules restrict any use of the information to criminally investigate or prosecute any alcohol or drug abuse patient.[facility] HospitalIn the event this information is protected by the Federal Confidentiality of Alcohol and Drug Abuse Patient Records regulations: The Federal rules restrict any use of the information to criminally investigate or prosecute any alcohol or drug abuse patient.[facility] HospitalIn the event this information is protected by the Federal Confidentiality of Alcohol and Drug Abuse Patient Records regulations: The Federal rules restrict any use of the information to criminally investigate or prosecute any alcohol or drug abuse patient.[facility] HospitalIn the event this information is protected by the Federal Confidentiality of Alcohol and Drug Abuse Patient Records regulations: The Federal rules restrict any use of the information to criminally investigate or prosecute any alcohol or drug abuse patient.[facility] HospitalIn the event this information is protected by the Federal Confidentiality of Alcohol and Drug Abuse Patient Records regulations: The Federal rules restrict any use of the information to criminally investigate or prosecute any alcohol or drug abuse patient.[facility] HospitalIn the event this information is protected by the Federal Confidentiality of Alcohol and Drug Abuse Patient Records regulations: The Federal rules restrict any use of the information to criminally investigate or prosecute any alcohol or drug abuse patient.[facility] Care Teams (unrecognized sec tion and content) [employer] Relationship Specialty Start Date End Date Baudilio Sultana MD [address] [place], [place] [id number] PCP - General Family Practice 04/01/18 Jackson Lee Consult[facility] Rheumatology 10/12/17 [employer] Relationship Specialty Start Date End Date Baudilio Sultana MD [address] [place], [place] [id number] PCP - General Family Practice 04/01/18 Jackson Lee Consulting Rheumatology 10/12/17 [employer] Engineer Relationship Specialty Start Date End Date Baudilio Sultana MD [address] [place], [place] [id number] PCP - General Family Practice 04/01/18 Jackson Lee Consulting Rheumatology 10/12/17 [employer] Test Engineer Relationship Specialty Start Date End Date Baudilio Sultana MD [address] [facility] [place] [address] PCP - General Family Practice 04/01/18 Jackson Lee Consulting Rheumatology 10/12/17 [employer] Test Engineer Relationship Specialty Start Date End Date Baudilio Sultana MD [address] [facility] [place] [address] PCP - General Family Practice 04/01/18 Jackson Lee Consulting Rheumatology 10/12/17 [employer] Test Engineer Relationship Specialty Start Date End Date Baudilio Sultana MD [address] [facility] [place] [address] PCP - General Family Practice 04/01/18 Jackson Lee Consulting Rheumatology 10/12/17 [employer] Test Engineer Relationship Specialty Start Date End Date Baudilio Sultana MD [address] [facility] [place] [address] PCP - General Family Practice 04/01/18 Jackson Lee Consulting Rheumatology 10/12/17 [employer] Test Engineer Relationship Specialty Start Date End Date Baudilio Sultana MD [address] [facility] [place] [address] PCP - General Family Practice 04/01/18 Jackson Lee Consulting Rheumatology 10/12/17 [employer] Test Engineer Relationship Specialty Start Date End Date Baudilio Sultana MD [address] [facility] [place] [address] PCP - General Family Practice 04/01/18 Jackson Lee Consulting Rheumatology 10/12/17 [employer] Test Engineer Relationship Specialty Start Date End Date Baudilio Sultana MD [address] [facility] [place] [address] PCP - General Family Practice 04/01/18 Jackson Lee Consulting Rheumatology 10/12/17 [employer] Test Engineer Relationship Specialty Start Date End Date Baudilio Sultana MD [address] [facility] [place] [address] PCP - General Family Practice 04/01/18 Jackson Lee Consulting Rheumatology 10/12/17 [employer] Test Engineer Relationship Specialty Start Date End Date Baudilio Sultana MD [address] [facility] [place] [address] PCP - General Family Practice 04/01/18 Jackson Lee Consulting Rheumatology 10/12/17 [employer] Test Engineer Relationship Specialty Start Date End Date Baudilio Sultana MD [address] [facility] [place] [address] PCP - General Family Practice 04/01/18 Jackson Lee Consulting Rheumatology 10/12/17 [employer] Test Engineer Relationship Specialty Start Date End Date Baudilio Sultana MD [address] [facility] [place] [address] PCP - General Family Practice 04/01/18 Jackson Lee Consulting Rheumatology 10/12/17 [employer] Test Engineer Relationship Specialty Start Date End Date Baudilio Sultana MD [address] [facility] [place] [address] PCP - General Family Practice 04/01/18 Jackson Lee Consulting Rheumatology 10/12/17 [employer] Test Engineer Relationship Specialty Start Date End Date Baudilio Sultana MD [address] [facility] [place] [address] PCP - General Family Practice 04/01/18 Jackson Lee Consulting Rheumatology 10/12/17 [employer] Engineer Relationship Specialty Start Date End Date Baudilio Sultana MD [address] [facility] [place] [address] PCP - General Family Medicine 04/01/18 04/24/22 Jackson Lee Consulting Rheumatology 10/12/17 [employer] Engineer Relationship Specialty Start Date End Date Baudilio Sultana MD [address] [place], [place] [id number] PCP - General Family Medicine 04/01/18 04/24/22 Jackson Lee Consulting Rheumatology 10/12/17 [employer] Engineer Relationship Specialty Start Date End Date Jackson Lee MD Consulting Rheumatology 10/12/17 [employer] Test Engineer Relationship Specialty Start Date End Date Jackson Lee MD Consulting Rheumatology 10/12/17 [employer] Test Engineer Relationship Specialty Start Date End Date Gio Harvey [address], [place] [address] PCP - General Certified Nurse Practitioner 01/13/24 [employer] Test Engineer Relationship Specialty Start Date End Date Gio Harvey [address], [place] [address] PCP - General Certified Nurse Practitioner 01/13/24 [employer] Engineer Relationship Specialty Start Date End Date Baudilio Sultnaa MD [address] [place], [place] [id number] PCP - General Family Medicine 04/01/18 04/24/22 Jackson Lee MD Consulting Rheumatology 10/12/17 [employer] Test Engineer Relationship Specialty Start Date End Date Gio Harvey [address], [place] [address] PCP - General Certified Nurse Practitioner 01/13/24 07/09/24 [employer] Engineer Relationship Specialty Start Date End Date Gio Harvey [address], [place] [address] PCP - General Certified Nurse Practitioner 01/13/24 07/09/24 [employer] Engineer Relationship Specialty Start Date End Date Raf Casey MD [address] [phone] PCP - General Internal Medicine 08/27/23 Jackson Lee MD Consulting Rheumatology 10/12/17 [employer] Engineer Relationship Specialty Start Date End Date Raf Casey MD [address] [phone] PCP - General Internal Medicine 08/27/23 Jackson Lee MD Consulting Rheumatology 10/12/17 [employer] Engineer Relationship Specialty Start Date End Date Raf Casey MD [address] [phone] PCP - General Internal Medicine 08/27/23 Jacskon Lee MD Consulting Rheumatology 10/12/17 [employer] Engineer Relationship Specialty Start Date End Date Raf Casey MD [address] [phone] PCP - General Internal Medicine 08/27/23 Jackson Lee MD Consulting Rheumatology 10/12/17 [employer] Engineer Relationship Specialty Start Date End Date Raf Casey MD [address] [phone] PCP - General Internal Medicine 08/27/23 Jackson Lee MD Consulting Rheumatology 10/12/17 [employer] Engineer Relationship Specialty Start Date End Date Raf Casey MD [address] [phone] PCP - General Internal Medicine 08/27/23 Jackson Lee MD Consulting Rheumatology 10/12/17 [employer] Engineer Relationship Specialty Start Date End Date Raf Casey MD [address] [phone] PCP - General Internal Medicine 08/27/23 Jackson Lee MD Consulting Rheumatology 10/12/17 Reason for Visit (unrecogniz ed section and content) Reason Comments Anticoagulation Reason Onset Date Comments Anticoagulation 09/25/2021 Reason Comments Physical moving into assisted living Specialty Diagnoses / Procedures Referred By Contac t Referred To Contact Family Practice / FAMILY MEDICINE Diagnoses moving into assisted living need ov for this Procedures 4C EST WELL Self Baudilio Sultana MD [address] [place] [address] Referral ID Status Reason Start Date Expiration Date V isits Requested Visits Authorized [id number] Closed Financial Clearance Required - OON Payor [...] Orders Reason Comments [facility], +thinners, A&Ox4 Reason [...] skin folds. Substituted for Nystatin (MICOSTATIN) powder. 48 (Given - Provider: Mable Trejo RN - [...] to transportation) 2238 (Given - Provider: Alexandra Yao, NAWAF) warfarin (COUMADIN) tablet 1 mg (COMPLETED) 1 mg, Oral, ONCE Warfarin, 1 dose, On 03/12/22 at 1800, Indication of Use: History of DVT/PE (indefinite), What is the patient's goal INR? 2.0 - 3.0, Review INR prior to administration. Hazardous med- See facility policy for handling/disposal 1900 (Given - Provider: Viktoriya Danielson, NAWAF) PRN Medication Order 03/10/2022 03/11/2022 03/12/2022 0.9 [...] Scheduled Medication Order 07/18/2023 07/19/2023 07/20/2023 HYDROcodone-acetaminophen ([place]) 5-325 MG per tablet 1 tablet (COMPLETED) 1 tablet, Oral, Once, On Thu07/19/23 at 2030, For 1 dose, Maximum dose of acetaminophen is 4000 mg from all sources in 24 hours. 2030 (Given - Provider: Pia Caraballo RN) HYDROcodone-acetaminophen ([place]) 5-325 MG per tablet 1 tablet (COMPLETED) 1 tablet, Oral, Once, On Thu07/20/23 at 0105, For 1 dose, Maximum dose of acetaminophen is 4000 mg from all sources in 24 hours. 015 (Given - Provid er: Gifty Cornell RN) HYDROcodone-acetaminophen ([place]) 5-325 MG per tablet 1 tablet (COMPLETED) [...] BE BASED ON THE PRIMARY CLINICAL RECORDS. [employer] [facility]. provides no warranty or guarantee of the accuracy or completeness of information in this document.
== END ==
LOC: OLS.WCC 05:00
PROVIDERS: PCP Family Medicine; Visit Provider Family Medicine
DX: N18.9 Chronic kidney disease, unspecified (principal); I25.10 Atherosclerotic heart disease of native coronary artery without angina pectoris
CPT/HCPCS: 36415; 83036; 84443

== ENCOUNTER → 2025-03-08 07:10 | Outpatient (REF) | payer MEDICARE, MEDICAID, SELFPAY ==
[2025-03-08 08:14] LABS: Prothrombin Time (Protime)PT. 29.1 SECONDS (11.7-14.9)
== END ==
LOC: OLS.WCC 07:10
PROVIDERS: PCP Family Medicine; Visit Provider Family Medicine
DX: I25.10 Atherosclerotic heart disease of native coronary artery without angina pectoris (principal); E11.42 Type 2 diabetes mellitus with diabetic polyneuropathy; Z79.01 Long term (current) use of anticoagulants
CPT/HCPCS: 36415; 85610

== ENCOUNTER → 2025-03-21 | Outpatient (REF) | payer MEDICARE, MEDICAID, SELFPAY ==
[2025-03-21 09:39] LABS: Prothrombin Time (Protime)PT. 23.6 SECONDS (11.7-14.9)
== END ==
LOC: OLS.WCC 08:05
PROVIDERS: PCP Family Medicine; Visit Provider Family Medicine
DX: Z79.899 Other long term (current) drug therapy (principal); Z79.01 Long term (current) use of anticoagulants
CPT/HCPCS: 36415; 85610

== ENCOUNTER → 2025-04-05 | Outpatient (REF) | payer MEDICARE, MEDICAID, SELFPAY ==
[2025-04-05 09:00] LABS: INR Fingerstick 2.0
== END ==
LOC: OLS.WCC 05:00
PROVIDERS: PCP Family Medicine; Visit Provider Family Medicine
DX: I48.91 Unspecified atrial fibrillation (principal)
CPT/HCPCS: 36416; 85610

== ENCOUNTER → 2025-04-20 | Outpatient (REF) | payer MEDICARE, MEDICAID, SELFPAY ==
--- OUTSIDE RECORDS SUMMARY | 2025-04-20 05:19 | XMS RPT_ITS | CCD ---
Author Organization [facility] [employer] [facility] Care Team Providers Care Fitting Room Attendant Name Role Phone DAVID ERWIN E Unavailable [...] Care Provider UnavailGio Ureña Primary Care Provider [phone] Baudilio Sultana MD Primary Care Provider Gio Harvey Primary Care Provider [phone] GIO HARVEY Primary Care Unavailable ISAAC CHICAS Attending Unavailable GLORIA BANGURA Attending Unavailable GIO HARVEY Primary Care Unavailable Александр JHA Attending Unavailable ANNA, CUBA R Attending Unavailable CANDICE, GIO Primary Care Unavailable ISAAC CHICAS Attending Unavailable GLORIA BANGURA Referring Unavailable ANNA, CUBA R Referring Unavailable CANDICE, GIO Primary Care Unavailable Александр JHA Referring Unavailable ANNA, CUBA R Referring Unavailable ANNA, CUBA R Referring Unavailable CANDICE, GIO Primary Care Unavailable ISAAC CHICAS Attending Unavailable Raf Casey MD Primary Care Provider LI, [facility] Abiodun Primary Care Unavailable LI, [facility] Abiodun Primary Care Unavailable SAGE LOERA Attending Unavailabl e MABLE BARKER Admitting Unavailable TESTSTEVEN MOSLEY Referring Unavailable KYMBERLY, [facility] Abiodun Primary Care Unavailable Rd MENDOZA, Dr. Astudillo Primary Care Physician Lopez MENDOZA, Min Phillips Attending Physician UnavailMin Newman MD Referring Provider Unavailable LI, [facility] L Primary Care Unavailable LULA, GENE A Attending Unavailable LULA, GENE A Attending Unavailable KYMBERLY, [facility] Abiodun Primary Care Unavailable LULA, GENE A Attending Unavailable KYMBERLY, [facility] Abiodun Primary Care Unavailable LULA, GENE A Attending Unavailable LI, [facility] L Primary Care Unavailable LULA, GENE A Referring Unavailable LULA, GENE A Attending Unavailable LI, RFA L Primary Care Unavailable LI, [facility] L Primary Care Unavailable LULA, GENE A Attending Unavailable KYMBERLY, [facility] Abiodun Primary Care Unavailable LULA, GENE A Attending Unavailable KYMBERLY, [facility] Abiodun Primary Care Unavailable LULA, GENE A Attending Unavailable KYMBERLY, [facility] L Primary Care Unavailable LULA, GENE A Attending Unavailable KYMBERLY, [facility] L Primary Care Unavailable LULA, GENE A Attending Unavailable MENDEL SHARMA Attending Unavailable SAGE LOERA Referring Unavailabl e KYMBERLY [facility] Abiodun Primary Care Unavailable TESTSTEVEN MOSLEY Attending Unavailable KYMBERLY, [facility] L Primary Care Unavailable LI, [facility] L Primary Care Unavailable TESTSTEVEN MOSLEY Referring Unavailable [place], [facility] Primary Care Unavailable Marroquin TRENA, Min K Attending Unavailable [place], [facility] Primary Care Unavailable Marroquin TRENA, Min K Attending Unavailable [place], [facility] Primary Care Unavailable Marroquin TRENA, Min K Attending Unavailable [place], [facility] Primary Care Unavailable Marroquin OLS, Min K Attending Unavailable [place], [facility] Primary Care Unavailable Marroquin OLS, Min K Attending Unavailable [place], [facility] Primary Care Unavailable Marroquin OLS, Min K Attending Unavailable Marroquin OLS, Min K Referring Unavailable Marroquin OLS, Min K Attending Unavailable [place], [facility] Primary Care Unavailable Marroquin OLS, Min K Attending Unavailable [place], [facility] Primary Care Unavailable Marroquin OLS, Min K Referring Unavailable Marroquin OLS, Min K Attending Unavailable [place], Baudilio Primary Care Unavailable Marroquin OLS, Min K Attending Unavailable [place], Baudilio Primary Care Unavailable [place], Baudilio Primary Care Unavailable Marroquin OLS, Min K Attending Unavailable Marroquin OLS, Min K Attending Unavailable Rd, Baudilio Primary Care Unavailable Marroquin OLS, Min K Attending Unavailable [place], Baudilio Primary Care Unavailable Marroquin OLS, Min K Attending Unavailable [place], Baudilio Primary Care Unavailable Marroquin OLS, Min K Referring Unavailable [place], Baudilio Primary Care Unavailable Marroquin OLS, Min K Referring Unavailable Marroquin OLS, Min K Attending Unavailable Allergies Allergy Classification Reported Allergen(s) Allergy Type Date of Onset Reaction(s) Facility (20 sources) cephalexin; Translations: [CEPHALEXIN] Drug Allergy 5 Itching [facility] Repository (20 sources) ciprofloxacin; Translations: [CIPROFLOXACIN] Drug Allergy 1 Rash [facility] Repository (20 sources) erythromycin; Translations: [ERYTHROMYCIN] Drug Allergy 5 Itching [facility] Repository (20 sources) naproxen; Translations: [NAPROXEN] Drug Allergy 5 Intolerance [facility] Repository (20 sources) PARoxetine; Translations: [PAROXETINE HCL] Drug Allergy 5 Mental Status Change [facility] Repository (20 sources) Penicillins; Translations: [PENICILLINS] Propensity to adverse reactions to drug (disorder) 1 Hives, Unknown, Other [facility] Repository (20 sources) PROMETHAZINE-PHE NYLEPHRINE; Translations: [PROMETHAZINE-PH ENYLEPHRINE] Propensity to adverse reactions to drug (disorder) 5 Mental Status Change, Other [facility] Repository (4 sources) OTHER; Translations: [OTHER] Propensity to adverse reactions (disorder) 2 AOF [facility] Repository (20 sources) HMG-CoA reductase inhibitor; Translations: [PNKIWBX-NJE-QWB REDUCTASE INHIBITORS] Drug Intolerance 9 Myalgia [facility] Work Phone: (20 sources) paper tape [Other] Propensity to adverse reactions 2 Intolerance [facility] Work Phone: (5 sources) Cephalexin; Translations: [cephalexin monohydrate] Drug Allergy 11-01-202 1 Unknown [facility] (4 sources) Erythromycin Drug Allergy 1 Unknown [facility] (5 sources) Promethazine; Translations: [promethazine HCl] Drug Allergy 1 Unknown [facility] (5 sources) Chlmhxc-Ivh-Pkd Reductase Inhibitor; Translations: [Hwmjiba-Xkw-Swa Reductase Inhibitor] Propensity to adverse reactions 1 Myalgias [facility] (1 source) PAPER TAPE Propensity to adverse reactions 1 Rash [facility] Work Phone: (20 sources) HMG-CoA reductase inhibitor Drug Intolerance 9 Myalgia [facility] Work Phone: (6 sources) Adhesive Tape Propensity to adverse reactions to drug 2 Unknown [facility] Comment on above: PAPER TAPE (5 sources) Cheese; Translations: [CHEESE] Propensity to adverse reactions to drug 2 Diarrhea, Nausea And Vomiting, GI Upset [facility] (1 source) Hmg-Coa Reductase Inhibitors (Statins) Propensity to adverse reactions to drug 2 [facility] Work Phone: (20 sources) Promethazine; Translations: [PROMETHAZINE] Drug Allergy 9 Unknown, Intolerance [facility] Work Phone: (20 sources) PARoxetine; Translations: [PAROXETINE] Drug Allergy 9 Unknown, Intolerance [facility] (20 sources) 5-Alpha Reductase Inhibitors Propensity to adverse reactions 3 [facility] (13 sources) Adhesive Tape-Silicones; Translations: [ADHESIVE TAPE-SILICONES] Drug Allergy 3 Unknown, Rash [facility] (11 sources) Adhesive Tape Propensity to adverse reactions 4 [facility] (7 sources) Wound Dressing Adhesive Drug Allergy 3 Unknown [facility] (11 sources) Adhesive Tape; Translations: [ADHESIVE TAPE (ROSINS)] Propensity to adverse reactions to substance 1 [facility] Work Phone: (2 sources) Adhesive agent; Translations: [ADHESIVE] Propensity to adverse reactions to drug (disorder) 2 [facility] Repository (1 source) Adhesive Tape Drug allergy (disorder) 2 [facility] Repository (1 source) Erythromycin Drug Allergy 2 [facility] Repository Medications Current Medications Medication Drug Class(es) [...] 4 mg/ml oral suspension (1 source) Start: 022 aluminum & magnesium hydroxide-simethic one (MAALOX) 200-200-20 [...] Aggregation Inhibitor, Nonsteroidal Anti-inflammatory Drug Start: 08-12-2017 Comment on above: Take 1 tablet by rajan once daily. benzonatate 100 mg oral capsule (14 sources) Non-narcotic Antitussive Start: 09-28-2024 take 1 [...] 13, 2016 7:44pm May 26, 2019 2:12pm Start: 04-13-2016 End: 05-26-2019 take 2 capsules by mouth three times daily as needed for cough Benzonatate 100 MG capsule Discontinued 200 mg PO 3 TIMES DAILY NEEDED as needed for Cough April 13, 2016 12:00am May 26, 2019 2:12pm Calcium (1 source) Phosphate Binder, Calcium Start: 06-12-2019 Calcium Carb-D3-Mag [id number] Active 1 EACH PO DAILY June 12, 2019 5:53pm Calcium Carb-D3-Mag [id number] 1 EACH tablet (3 sources) Start: 06-12-2019 take 1 tablet by mouth once daily calcium carbonate/vitami n D2 (CALCIUM 600 WITH [...] Take 1 tablet by rajan once daily. clindamycin 300 mg oral capsule (4 sources) Lincosamide Antibacterial Start: 12-15-19 End: 12-25-19 24 clindamycin (Cleocin) 300 MG [...] V43.65 doxycycline hyclate 100 mg oral capsule (6 sources) Tetracycline-class Drug Start: 03-10-20 End: 03-15-20 22 take 1 capsule by mouth every twelve hours doxycycline hyclate (VIBRAMYCIN) 100 MG capsule Take 1 capsule by mouth every 12 hours for 8 doses 8 capsule 0 03/11/2022 03/15/2022 Active Start: 06-30-2017 End: 05-26-2019 take 1 capsule by mouth twice daily Doxycycline Monohydrate 100 MG capsule Discontinued 100 mg PO TWICE A DAY 10 5 0 June 30, 2017 1:00am May 26, 2019 2:12pm Acute respiratory failure with hypoxia Acute respiratory failure with hypoxia escitalopram 5 mg oral tablet (20 sources) [...] 1 tablet by mouth three times daily Start: 06-06-2014 End: 05-26-2019 take 1 tablet by mouth three times daily at mealtime Gabapentin 800 MG tablet Discontinued 800 mg PO 3 TIMES DAILY WITH MEALS June 06, 2014 1:00am May 26, 2019 2:08pm NEUROPATHY gabapentin (Neur ontin) 300 MG capsule 1 [...] tablet (20 sources) Antimalarial, Antirheumatic Agent Start: 10-09-2021 take 1 tablet by mouth twice daily Start: 06-06-2014 End: 05-26-2019 take 1 tablet by mouth twice daily at mealtime Hydroxychloroquine 200 MG tablet Discontinued 200 mg PO TWICE DAILY WITH MEALS June 06, 2014 1:00am May 26, 2019 2:12pm CIRCULATION hydrOXYzine hydrochloride 25 mg oral tablet (20 sources) Antihistamine Start: 09-28-2024 take 1 tablet by mouth twice daily hydrOXYzine HCl (ATARAX) 25 mg tablet Take 1 tablet by mouth two times a day. 09/28/2024 Active take 1 capsule by [facility] every eight hours as needed hydrOXYzine pamoate (VISTARIL) 25 mg capsule Take 25 mg by mouth three times a day as needed for anxiety. Active levothyroxine sodium 0.15 mg oral tablet (20 sources) l-Thyroxine Start: 09-27-2021 End: 03-26-2022 take 1 tablet by mouth once daily Start: 08-16-2021 End: 09-27-2021 take 1 tablet by mouth once daily for thyroid dysfunction levothyroxine (SYNTHROID) 137 mcg tablet Indications: Acquired hypothyroidism TAKE 1 TABLET BY MOUTH ONCE DAILY ON AN EMPTY STOMACH FOR THYROID 30 tablet 11 08/16/2021 09/27/2021 Discontinued Start: 05-26-2019 End: 10-09-2021 take 1 tablet by mouth once daily Levothyroxine 125 mcg tablet Discontinued 125 ug PO DAILY May 26, 2019 1:00am October 09, 2021 10:21am Start: 06-26-2017 End: 05-26-2019 take 1 tablet by mouth once daily Levothyroxine 100 MCG tablet Discontinued 100 ug PO DAILY June 26, 2017 1:00am May 26, 2019 2:08pm thyroid Comment on above: TAKE 1 TABLET BY [...] take 1 tablet by mouth once daily Start: 08-20-2020 End: 03-26-2021 take 1 tablet by mouth twice daily Metformin 850 mg tablet Discontinued 850 mg PO TWICE A DAY August 20, 2020 1:00am March 26, 2021 9:42am Start: 06-06-2014 End: 08-20-2020 take 850 mg by mouth three times daily Metformin Discontinued 850 MG PO THREE TIMES A DAY May 26, 2019 2:09pm August 20, 2020 2:08pm Start: 06-06-2014 End: 08-20-2020 Metformin 500 mg tablet Disc ontinued 850 mg PO THREE TIMES A DAY May 26, 2019 2:09pm August 20, 2020 2:08pm DIABETES take 1 tablet by rajan th in the morning metFORMIN (Glucophage) 500 MG tablet Take 500 mg by mouth in the morning and 500 mg in the evening. Take with meals. Active Comment on above: Take 1 tablet by rajan th daily with breakfast. Take 500 mg by mouth twice daily. miconazole nitrate 0.02 mg/mg topical powder (9 sources) Azole Antifungal Start: 09-28-2024 miconazole 2 % powder Apply 1 application to affected area two times a day. 09/28/2024 Active Start: 03-08-2022 apply 1 dose topical ly twice daily Topical, 2 TIMES DAILY, First dose on 03/08/22 at 2100 Apply to skin folds. Substituted for Nystatin (MICOSTATIN) powder. mirtazapine 30 mg oral table t (20 sources) Start: 05-26-2019 End: 04-22-2021 take 1 tablet by mouth at bedtime Start: 06-06-2014 End: 05-26-2019 take 15 mg by mouth at bedtime Mirtazapine Discontinue d 15 MG PO AT BEDTIME June 06, 2014 1:41pm May 26, 2019 2:12pm Start: 06-06-2014 End: 05-26-2019 Mirtazapine 30 MG tablet Discontinued 15 mg PO AT BEDTIME June 06, 2014 1:00am May 26, 2019 2:12pm SLEEP Comment on above: Take 1 tablet by [...] TABLET PO DAILY May 26, 2019 2:10pm Multivitamin tablet (3 sources) Start: 05-26-20 19 mupirocin 0.02 mg/mg topical ointment (20 sources) RNA Synthetase Inhibitor Antibacterial Start: 03-04-20 23 mupirocin (BACTROBAN) 2 % ointment Apply to affected area once daily. APPLY TO AFFECTED AREA 03/04/2023 Active Start: 10-09-2021 Start: 09-26-2021 End: 10-06-2021 mupirocin (BACTROBAN) 2 % cr eam Apply 1 application to affected area three times daily for 10 days. Location:foot 30 g 2 09/26/2021 10/06/2021 Active Start: 04-22-2021 End: 10-09-2021 Mupirocin Calcium (Bactroban ) 2 % Cream Discontinued 1 NMA TOPICAL THREE TIMES A DAY April 22, 2021 12:00am October 09, 2021 10:25am foot Comment on above: Apply 1 application to affected area three times daily for 10 days. Location:foot Apply to affected ar ea once daily. APPLY TO AFFECTED AREA nitroglycerin 0.4 mg sublingual tablet (20 sources) Nitrate Vasodilator Start: 05-26-2019 End: 07-24-2021 Comment on above: Dissolve 1 tablet un yasmin the tongue every 5 minutes as needed for chest pain. FOR CHEST PAIN. IF NO RELIEF CALL 911 nystatin 100 unt/mg topical powder (20 sources) Polyene Antifungal nystatin (Myc ostatin) cream Apply topically 3 times daily. Active nystatin (Mycost atin) 687878 UNIT/GM powder Apply topically 2 times daily. [...] mg oxyCODONE hydrochloride 5 mg oral tablet (7 sources) Opioid Agonist Start: 5 End: 5 [...] Oxycodone (Roxicodone) 5 MG tablet Discontinued 5 mg PO EVERY 4 HOURS NEEDED January 04, 2014 12:00am January 07, 2014 9:25am polyethylene glycol 3350 [id number] mg powder for oral solution (2 sources) [...] take 1 capsule by mouth once daily take 1 capsule by mo ut every [...] Start: 09-17-2022 take 1 tablet by rajan th once daily in the evening traZODone (Desyrel) [...] EVERY MONTH August 20, 2020 2:06pm Start: 08-20-2020 inject 100 ug by int ramuscular injection every month Start: 03-29-2020 End: 10-08-2022 inject 1 mL [...] mcg into the muscle every 30 days 15 0 Active Comment on above: Inject 1 [...] warfarin (COUM ALBINA) tablet 5 mg Start: 10-09-2021 Start: 09-18-2021 warfarin (COUM ALBINA) 5 mg [...] tablet 3 11/29/2020 04/22/2021 Discontinued Start: 05-26-2019 End: 10-09-2021 take 2 tablets by mouth once daily Warfarin (Coumadin) 2.5 mg tablet Discontinued 5 mg PO DAILY May 26, 2019 1:00am October 09, 2021 10:25am Start: 06-06-2014 End: 05-26-2019 Warfarin Discontinued 2.5 MG PO SUTUWEFRSA June 06, 2014 1:41pm May 26, 2019 2:11pm Start: 06-06-2014 End: 05-26-2019 Warfarin 7.5 MG tablet Disco ntinued 2.5 mg PO SUTUWEFRSA June 06, 2014 1:00am May 26, 2019 2:11pm BLOOD THINNER Comment on above: Takes 2 per week [...] Agonist Start: 07-19-2023 End: 07-20-2023 HYDROcodone-acetam inophen (Trilla) 5-325 MG per tablet 1 tablet Start: 06-06-2014 End: 10-26-2021 take 1 tablet by mouth every six hours as needed for pain HYDROcodone-acetaminophen (NORCO) 5-325 mg per tablet Indications: Brachial neuritis or radiculitis Take 1 tablet by mouth every 6 hours as needed for pain for up to 30 days. 90 tablet 09/26/2021 Active Comment on above: Take 1 tablet [...] take 1 tablet by mouth twice daily take 1 tablet by rajan th once daily buPROPion SR (Wellbutrin SR) 150 MG 12 hr tablet Take 150 mg by mouth daily. Active Comment on above: Take 1 tablet by rajan th twice daily. 300 mg once daily. calcium carbonate 1250 mg / cholecalciferol 200 unt oral tablet (2 sources) Vitamin D Start: 022 take 1 tablet by mouth once daily 1 tablet, Oral, DAILY, First dose on 03/08/22 at 1647, Until Discontinued cefepime (MAXIPIME) 2000 mg IVPB minibag (1 source) Start: End: take 2000 mg intravenously every eight hours cefepime (MAXIPIME) 2000 mg IVPB minibag cholecalciferol 0.05 mg oral tablet (20 sources) Vitamin D Start: End: take 1 tablet by mouth once daily Cholecalciferol (Vitamin D3) 2,000 unit tablet Discontinued 2000 U PO DAILY May 26, 2019 1:00am October 09, 2021 10:20am take 1 capsule by mouth once anna ly cholecalciferol (Vitamin D-3) 50 MCG (1999 UT) capsule Take 2,000 Units by mouth daily. Active Comment on above: Take 1 capsule by [facility] once daily. 1 ml dexamethasone phosphate 10 mg/ml injection (2 sources) Corticosteroid Start: 07-10-19 End: 07-10-19 take 8 mg by mouth once 8 mg, Oral, Once, On 07/10/24 at 0020, For 1 dose famotidine 20 mg oral tablet (4 sources) Histamine-2 Receptor Antagonist Start: 06-06-20 End: 08-21-19 take 1 tablet by mouth twice daily Famotidine 20 MG tablet Discontinued 20 mg PO TWICE A DAY June 06, 2014 1:00am August 20, 2020 2:09pm GERD/ACID REFLUX fluticasone propionate 0.05 mg/actuat metered dose nasal spray (20 sources) Corticosteroid Start: 03-08-20 take 2 spray(s) nasal route once daily 2 spray, Each Nostril, DAILY, First dose on 03/08/22 at 1800, Until Discontinued Start: 05-04-2019 take 2 spray(s) by [facility] once daily fluticasone (FLONASE) 50 mcg/actuation nasal spray Indications: Rhinitis Use 2 Sprays in each nostril once daily. Rinse mouth after use. 1 Bottle 11 05/04/2019 Active Start: 06-06-2014 Fluticasone Pr opionate Active 2 SPRAY NASAL DAILY June 06, 2014 1:41pm Start: 06-06-2014 take 2 spray(s) nasa l route once daily fluticasone (FLONASE) 50 MCG/ACT nasal spray 2 sprays by Each Nostril route daily 0 Active Comment on above: Use 2 Sprays in each nostril once daily. Rinse mouth after use. furosemide 20 mg oral tablet (7 sources) Loop Diuretic Start: 09-19-2014 End: 05-26-2019 take 1 tablet by mouth once daily as needed Furosemide 20 MG tablet Discontinued 20 mg PO DAILY NEEDED as needed for Swelling September 19, 2014 12:00am May 26, 2019 2:12pm take 1 tablet [...] ml insulin glargine 100 unt/ml pen injector (4 sources) Insulin Analog Start: 09-19-2014 End: 05-26-2019 Insulin Glargine Discontinued 30 UNITS SC AT BEDTIME September 19, 2014 2:35pm May 26, 2019 2:12pm Start: 09-19-2014 End: 05-26-2019 Insulin Glargine 100 UNITS/M L insulin pen Discontinued 30 U SC AT BEDTIME September 19, 2014 12:00am May 26, 2019 2:12pm DIABETES insulin lispro 100 unt/ml injectable solution (6 sources) Insulin Analog Start: 03-08-2022 0-4 Units, Sub CUTAneous, NIGHTLY, First dose on 03/08/22 at 2100, [...] three times daily as needed Insulin Lispro 100 UNIT/ML solution Discontinued 10 U SQ 3 TIMES DAILY NEEDED as needed for Hyperglycemica June 06, 2014 1:00am May 26, 2019 2:12pm ketoconazole 20 mg/ml topical cream (20 sources) Azole Antifungal Start: 04-22-2021 End: 10-09-2021 Ketoconazole 2 % Cream Discontinued 1 NMA TOPICAL DAILY April 22, 2021 12:00am October 09, 2021 10:25am Start: 01-23-2021 ketoconazole ( NIZORAL) 2 % cream Indications: Erythema intertrigo Apply 1 application to affected area once daily. 60 g 2 01/23/2021 Active Comment on above: Apply 1 application to affected area once daily. 10 ml lidocaine hydrochloride 10 mg/ml injection [...] at 0700, Until Discontinued Start: 08-20-2020 take 1 capsule by mo [facility] once daily take 1 tablet by mouth once henrietta y Magnesium Oxide 500 mg tab Take 500 mg by mouth once daily. Active Comment on above: Take 500 mg by mouth once daily. melatonin 10 mg oral capsule (20 sources) Start: 03-08-2022 take 10 mg by mouth once daily 10 mg, Oral, NIGHTLY, First dose on 03/08/22 at 2100, Until Discontinued Start: 08-20-2020 take 1 tablet by mouth at bedt kelechi as needed for sleep Comment on above: Take 1 tablet by rajan th daily at bedtime. melatonin 10 mg / vitamin b6 10 mg extended release oral tablet (4 sources) Start: 06-06-2014 End: 08-20-2020 take 1 tablet by mouth three times daily Melatonin-Pyridoxine Hcl (B6) 1 EACH tablet,ext release multiphase Discontinued 150 mg PO THREE TIMES A DAY June 06, 2014 1:00am August 20, 2020 2:08pm SUPPLEMENT 24 hr metoprolol succinate 100 mg extended release oral tablet (20 sources) beta-Adrenergic Nisha Start: 05-09-2019 End: 03-23-2023 take 1 tablet by mouth once daily Metoprolol Succinate 100 mg tablet extended release 24 hr Discontinued 100 mg PO DAILY 90 0 December 24, 2022 12:48pm March 23, 2023 8:20am BLOOD PRESSURE/HEART Start: 06-06-2014 End: 05-26-2019 take 100 mg by mouth once daily Metoprolol Succinate Discontinued 100 MG PO DAILY June 06, 2014 1:41pm May 26, 2019 2:57pm Start: 06-06-2014 End: 05-26-2019 take 4 tablets by mouth once daily Metoprolol Succinate 25 MG tablet Discontinued 100 mg PO DAILY June 06, 2014 1:00am May 26, 2019 2:57pm BLOOD PRESSURE/HEART Comment on above: Take 1 tablet by rajan once daily. nitrofurantoin, macrocrystals 25 mg / nitrofurantoin, monohydrate 75 mg oral capsule (2 sources) Nitrofuran Antibacterial Start: 02-03-2023 nitrofurantoin monohydrate and macrocrystal (MACROBID) 100 mg capsule 1 ml triamcinolone acetonide 40 mg/ml injection (2 sources) Corticosteroid Start: 10-19-2024 End: 10-19-2024 triamcinolone acetonide 40 mg injection (KeNALog 40) [...] Infection zolpidem tartrate 5 mg oral tablet (4 sources) gamma-Aminobuty hai Acid-ergic Agonist Start: 06-06-2014 End: 05-26-2019 take 1 tablet by mouth at bedtime as needed Zolpidem 5 MG tablet Discontinued 5 mg PO AT BEDTIME NEEDED as needed for Insomnia June 06, 2014 1:00am May 26, 2019 2:11pm Problems Active Problems [...] disease (20 sources) Atherosclerotic heart disease of [place] coronary artery without angina pectoris; Translations: [Coronary atherosclerosis] Onset: 7 05-25-2017 Chronic Comment on above: PCI/stent to LAD 200 4; PCI stent to LAD 2004; PCI/MOISE to CX 05/17/08 Deficiency and other anemia (20 sources) Anemia [...] initial encounter] Onset: 5 Episodic Essential hypertension (20 sources) Essential (primary) hypertension; Translations: [Essential hypertension] [...] Onset: 3 08-20-2012 Chronic Malaise and fatigue (7 sources) Asthenia; Translations: [Weakness] 09-30-2024 Episodic Mood [...] 4 05-04-2023 Chronic Other aftercare (3 sources) halfway (current) use of anticoagulants; Translations: [salvage determiner (current) use of anticoagulants] Onset: 2 Episodic Other aftercare (2 sources) salvage determiner (current) use of oral hypoglycemic drugs; Translations: [salvage determiner (current) use of oral hypoglycemic drugs] Onset: 2 Episodic Other aftercare (2 sources) halfway (current) use of aspirin; Translations: [salvage determiner (current) use of aspirin] Onset: 2 Episodic Other aftercare (2 sources) halfway (current) use of opiate analgesic; Translations: [salvage determiner (current) use of opiate analgesic] Onset: 2 Episodic Other aftercare (2 sources) Other watermelon inspector (current) drug therapy; Translations: [Other snf (current) drug therapy] Onset: 5 Episodic Other [...] injuries and conditions due to external causes (14 sources) Closed injury of head; Translations: [Unspecified injury of head, initial encounter] Onset: 3 05-04-2023 Episodic Other injuries and conditions due [...] [Morbid obesity (HCC)] Onset: 5 Chronic Other nutritional; endocrine; and metabolic disorders (14 sources) H/O: hypothyroidism; Translations: [Personal history of other endocrine, nutritional and metabolic disease] Onset: 3 05-04-2023 Episodic Other screening for suspected conditions (not mental disorders or infectious disease) (3 sources) Patient encounter status; Translations: [Encounter for screening mammogram for malignant neoplasm of breast] Onset: 2 Episodic Other skin disorders (20 sources) Hirsutism; Translations: [Hirsutism] 04-18-2005 Episodic Paralysis (20 sources) Cerebral palsy; Translations: [Cerebral palsy, unspecified] Onset: 7 04-04-2015 Chronic Peripheral and visceral atherosclerosis (14 sources) Peripheral vascular disease; Translations: [Peripheral vascular disease, unspecified] Onset: 3 05-04-2023 Chronic Pneumonia (except that caused by tuberculosis or sexually transmitted disease) (14 sources) Pneumonia; Translations: [Pneumonia, unspecified organism] Onset: 3 05-04-2023 Episodic Pulmonary heart disease (11 sources) Chronic thromboembolic pulmonary hypertension; Translations: [Chronic thromboembolic pulmonary hypertension] Onset: 3 05-04-2023 Chronic Pulmonary heart disease (20 sources) Pulmonary embolism; Translations: [Other pulmonary embolism without acute cor pulmonale] Onset: 2 Resolved: 0 06-17-2021 Episodic Residual codes; unclassified (20 sources) Edema; Translations: [Edema, unspecified] 04-18-2005 Episodic Residual codes; unclassified (1 source) Swelling - edema - symptom; Translations: [Edema, unspecified] 04-18-2005 Episodic Residual codes; unclassified (1 source) Other specified health status; Translations: [Decreased activities of daily living (ADL)] Onset: 5 Episodic Superficial injury; contusion (20 sources) Hematoma of scalp; Translations: [Contusion of scalp, initial encounter] Onset: 3 05-04-2023 Episodic Systemic [...] Episodic Coronary atherosclerosis and other heart disease (17 sources) Stented coronary artery; Translations: [Presence of coronary angioplasty implant and graft] Onset: 04-22-2008 Episodic Comment on above: PCI/stent to LAD 200 4; PCI stent to LAD 2004; PCI/MOISE to CX 05/17/08 Diabetes mellitus without complication (9 sources) Diabetes [...] [Ankle instability, left] Onset: 10-27-2024 Episodic Other upper respiratory infections (18 sources) Laryngitis; Translations: [Acute laryngitis] Onset: 09-09-2013 Resolved: 11-08-2014 11-08-2014 Episodic Residual codes; unclassified (9 sources) Family [...] leg, initial encounter] Onset: 05-04-2023 05-04-2023 Episodic Unclassified [...] Interpretation Reference Range Facility Protime w/INR Fingerstickon 04-05-2025 INR Coag (PPP) [Relative time] 2.0 {INR} Normal [facility] Comment on above: Result Comment: Crit ical Value > 4.0 Performed By: #### L 9200.0000 #### [facility] [address] [place], [address] Protime Coagsen 22.7 SEC High 11.7-14.9 [facility] Comment on above: Performed By: #### L 9200.0000 #### [facility] [address] [place], [address] International normalized rat io (INR) calculationOrdered By: Min Marroquin on 03-21-2025 INR Coag (Bld) [Relative time] 2.1 {INR} [facility] Prothrombin Time w/INRon INR Coag (PPP) [Relative time] 2.1 {INR} Normal [facility] Comment on above: Performed By: #### L 9200.0000 #### [facility] [address] [place], [address] PT Coag (PPP) [Time] 23.6 s High 11.7-14.9 [facility] Comment on above: Performed By: #### L 9200.0000 #### [facility] [address] [place], [address] Prothrombin timeOrdered By: Min Marroquin on 03-21-2025 PT Coag (PPP) [Time] 23.6 s High 11.7-14.9 [facility] CNOVon 03-20-2025 CNOV Office Visit (PSYLWM ) RANDOLPH HUNTER ([id number]) 1950 F Date Time Provider Department 03/20/25 3:00 PM GILMER COTTON PSYLWM During your visit today, we recorded the following information about you: Gilmer Cotton, PhD 03/20/2025 4:09 PM Signed [facility] Progress Note Randolph Hunter 03/20/2025 [id number] PROVIDER: Gilmer Cotton, PhD CPT Code: Time: 50 minutes Setting: Patient seen in person Parties Present: Patient Treatment Modality/Interventions: Cognitive Behavioral Reassurance/Supportive Insight oriented Problem solving Processing of emotions Psychoeducation MENTAL STATUS: Mood: variable, dysthymic Affect: mood-congruent Thoughts/Associations:goal directed Suicidal/Homicidal Ideation: None expressed or evidenced Other Prominent Symptoms: Therapy Focus/Content of Session: Self-care, Stress management, Mood/affect regulation, Self-esteem, and Coping with chronic illness Simran is a bit dysthymic. her is in an apartment and not as much contact the staff changes before she gets to know them so not a sense of family as she would like recently she was w/out her phone and couldnt call for help in the gazebo so pulled the fire alarm after time 2 new great grand children reading a lot .. mostly page turners Anxiety : elevated perhaps since she is less certain about getting help or appropriate help when she needs it PLAN: discussed coping at length MEDICATIONS: Per medical record: Current Outpatient Medications [...] directed once a month. blood sugar diagnostic ([employer] VERIO TEST STRIPS) test strip Test blood [...] 343.8; 782.3; 787.91; V43.65 No current facility-administered (more content not included)... Normal [facility] International normalized rat io (INR) calculationOrdered By: Min Marroquin on 03-08-2025 INR Coag (Bld) [Relative time] 2.7 {INR} [facility] Prothrombin Time w/INRon INR Coag (PPP) [Relative time] 2.7 {INR} Normal [facility] Comment on above: Order Comment: 103-1 Performed By: #### L 9200.0000 #### [facility] [address] [place], [place], [id number] PT Coag (PPP) [Time] 29.1 s High 11.7-14.9 [facility] Comment on above: Order Comment: 103-1 Performed By: #### L 9200.0000 #### [facility] [address] [place], [address] Prothrombin timeOrdered By: Min Marroquin on 03-08-2025 PT Coag (PPP) [Time] 29.1 s High 11.7-14.9 [facility] Hemoglobin A1con 03-02-2025 HbA1c (Bld) [Mass fraction] 5.4 % Normal <=5.6 [facility] Comment on above: Order Comment: 103.1 Result Comment: Norm al < 5.7 % Prediabetic 5.7 - 6.4 % Diabetic >or= 6.5 % Please note range changes. Performed By: #### L 501.9985, L501.9520 #### [facility] [address] [place], [place], [address] Hemoglobin A1c percentageOrd ered By: Min Marroquin on 03-02-2025 HbA1c (Bld) [Mass fraction] 5.4 % <5.7 [facility] Comment on above: Normal < 5.7 % Predi abetic 5.7 - 6.4 % Diabetic >or= 6.5 % Please note range changes. TSH DL <= 0.005 mIU/L QnOrde red By: Min Marroquin on 03-02-2025 TSH Qn 2.590 uIU/mL 0.300-4.20 0 [facility] Thyroid Stim Hormone (TSH)on 03-02-2025 TSH 2.590 uIU/mL Normal 0.300-4.20 0 [facility] Comment on above: Order Comment: 103.1 Performed By: #### L 501.9985, L501.9520 #### [facility] [address] [place], [place], [address] International normalized rat io (INR) measurement by fingerstickOrdered By: Min Marroquin on 02-21-2025 INR Coag (BldC) [Relative time] 2.4 [facility] Comment on above: Critical Value > 4.0 Protime w/INR Fingerstickon 02-21-2025 INR Coag (PPP) [Relative time] 2.4 {INR} Normal [facility] Comment on above: Result Comment: Crit ical Value > 4.0 Performed By: #### L 9200.0000 #### [facility] [address] [place], [address] Protime Coagsen 25.4 SEC High 11.7-14.9 [facility] Comment on above: Performed By: #### L 9200.0000 #### [facility] [address] [place], [address] Whole blood prothrombin time Ordered By: Min Marroquin on 02-21-2025 PT Coag (Bld) [Time] 25.4 s High 11.7-14.9 [facility] International normalized rat io (INR) measurement by fingerstickOrdered By: Min Marroquin on 02-07-2025 INR Coag (BldC) [Relative time] 2.5 [facility] Comment on above: Critical Value > 4.0 Protime w/INR Fingerstickon 02-07-2025 INR Coag (PPP) [Relative time] 2.5 {INR} Normal [facility] Comment on above: Result Comment: Crit ical Value > 4.0 Performed By: #### L 9200.0000 #### [facility] [address] [facility] [place], [address] Protime Coagsen 27.1 SEC High 11.7-14.9 [facility] Comment on above: Performed By: #### L 9200.0000 #### [facility] [address] [facility] [address] [place], [address] Whole blood prothrombin time Ordered By: Min Marroquin on 02-07-2025 PT Coag (Bld) [Time] 27.1 s High 11.7-14.9 [facility] International normalized rat io (INR) measurement by fingerstickOrdered By: Min Marroquin on 02-01-2025 INR Coag (BldC) [Relative time] 3.2 [facility] Comment on above: Critical Value > 4.0 Protime w/INR Fingerstickon 02-01-2025 INR Coag (PPP) [Relative time] 3.2 {INR} Normal [facility] Comment on above: Result Comment: Crit ical Value > 4.0 Performed By: #### L 9200.0000 #### [facility] [address] [place], [place], [id number] Protime Coagsen 32.6 SEC High 11.7-14.9 [facility] Comment on above: Performed By: #### L 9200.0000 #### [facility] [address] [place], [address] Whole blood prothrombin time Ordered By: Min Marroquin on 02-01-2025 PT Coag (Bld) [Time] 32.6 s High 11.7-14.9 [facility] International normalized rat io (INR) calculationOrdered By: Min Marroquin on 01-31-2025 INR Coag (Bld) [Relative time] 4.0 {INR} Critically high [facility] Comment on above: CRITICAL VALUE DOMINGUEZ D TO MARIA TERESA SALVADOR ([facility])01/31/25 0949 Steven Fagan.RESULTS READ BACK BY SAME. Prothrombin Time w/INRon INR Coag (PPP) [Relative time] 4.0 {INR} Invalid Interpretation Code [facility] Comment on above: Result Comment: CRIT ICAL VALUE CALLED TO MARIA TERESA SALVADOR ([facility]) 01/31/25 0949 Steven Fagan. RESULTS READ BACK BY SAME. Performed By: #### L 9200.0000 #### [facility] [address] [place], [place], [id number] PT Coag (PPP) [Time] 40.0 s High 11.7-14.9 [facility] Comment on above: Performed By: #### L 9200.0000 #### [facility] [address] [place], [address] Prothrombin timeOrdered By: Min Marroquin on 01-31-2025 PT Coag (PPP) [Time] 40.0 s High 11.7-14.9 [facility] International normalized rat io (INR) measurement by fingerstickOrdered By: Min Marroquin on 01-24-2025 INR Coag (BldC) [Relative time] 3.8 [facility] Comment on above: Critical Value > 4.0 Protime w/INR Fingerstickon 01-24-2025 INR Coag (PPP) [Relative time] 3.8 {INR} Normal [facility] Comment on above: Result Comment: Crit ical Value > 4.0 Performed By: #### L 9200.0000 #### [facility] [address] [place], [address] Protime Coagsen 38.5 SEC High 11.7-14.9 [facility] Comment on above: Performed By: #### L 9200.0000 #### [facility] [address] [place], [address] Whole blood prothrombin time Ordered By: Min Marroquin on 01-24-2025 PT Coag (Bld) [Time] 38.5 s High 11.7-14.9 [facility] International normalized rat io (INR) measurement by fingerstickOrdered By: Min Marroquin on 01-17-2025 INR Coag (BldC) [Relative time] 1.5 [facility] Comment on above: Critical Value > 4.0 Protime w/INR Fingerstickon 01-17-2025 INR Coag (PPP) [Relative time] 1.5 {INR} Normal [facility] Comment on above: Result Comment: Crit ical Value > 4.0 Performed By: #### L 9200.0000 #### [facility] [address] [place], [address] Protime Coagsen 17.2 SEC High 11.7-14.9 [facility] Comment on above: Performed By: #### L 9200.0000 #### [facility] [address] [place], [address] Whole blood prothrombin time Ordered By: Min Marroquin on 01-17-2025 PT Coag (Bld) [Time] 17.2 s High 11.7-14.9 [facility] CNOVon 01-10-2025 CNOV Office Visit (PSYLWM ) RANDOLPH HUNTER ([id number]) 1950 F Date Time Provider Department 01/10/25 11:00 AM GILMER COTTON PSYLWM During your visit today, we recorded the following information about you: Gilmer Cotton, PhD 01/10/2025 12:09 PM Signed [facility] Progress Note Randolph Abiodun Johan 01/10/2025 [id number] PROVIDER: Gilmer Cotton, PhD CPT Code: Time: [...] directed once a month. blood sugar diagnostic ([employer] VERIO TEST STRIPS) test strip Test blood [...] Issues: No change from previous appointment DIAGNOSIS: [place] I (more content not included)... Normal [facility] International normalized rat io (INR) measurement by fingerstickOrdered By: Min Marroquin on 01-09-2025 INR Coag (BldC) [Relative time] 2.9 [facility] Comment on above: Critical Value > 4.0 Protime w/INR Fingerstickon 01-09-2025 INR Coag (PPP) [Relative time] 2.9 {INR} Normal [facility] Comment on above: Result Comment: Crit ical Value > 4.0 Performed By: #### L 9200.0000 #### [facility] [address] [place], [address] Protime Coagsen 30.5 SEC High 11.7-14.9 [facility] Comment on above: Performed By: #### L 9200.0000 #### [facility] [address] [place], [address] Whole blood prothrombin time Ordered By: Min Marroquin on 01-09-2025 PT Coag (Bld) [Time] 30.5 s High 11.7-14.9 [facility] Urine Cultureon 01-06-2025 URC Klebsiella pneumonia e sp pneum [place] Count 50,000-80,000 Escherichia coli Escherichia coli Klebsiella [...] TMP SMX Islt NORMA <=20 S Normal [facility] Comment on above: Performed By: #### L 400.0001, M100.2200 #### [facility] [address] [facility] [place], [address] Bilirubin Test strip Ql (U)O rdered By: Min Marroquin on 01-03-2025 Bilirubin Ql (U) Negative Negative [facility] Ketones Test strip Ql (U)Ord ered By: Min Marroquin on 01-03-2025 Ketones Ql (U) Negative Negative [facility] Microscopic analysis of urin e for red blood cells (RBC)Ordered By: Min Marroquin on 01-03-2025 Microscopic analysis of urine for red blood cells (RBC) 10-25 SEEN /hpf 0-5 [facility] Mucus LM Ql (Urine sed)Order ed By: Min Marroquin on 01-03-2025 Mucus Ql (Urine sed) 0 SEEN /hpf [facility] Nitrite Test strip Ql (U)Ord ered By: Min Marroquin on 01-03-2025 Nitrite Ql (U) Negative Negative [facility] Protein Test strip Ql (U)Ord ered By: Min Marroquin on 01-03-2025 Protein Ql (U) 100 mg/dl High Negative [facility] Squamous epithelial cells de tection in urine sediment by light microscopyOrdered By: Min Marroquin on 01-03-2025 Epithelial cells.squamous LM Ql (Urine sed) 0 SEEN /hpf 5-10 [facility] Urinalysis, Completeon 01-03 RBC 10-25 SEEN Normal 0-5 [facility] Comment on above: Order Comment: CLAU TER SPECIMEN Performed By: #### L 400.0001, M100.2200 #### [facility] [address] [place], [address] WBC >100 SEEN Normal 0-5 [facility] Comment on above: Order Comment: CLAU TER SPECIMEN Performed By: #### L 400.0001, M100.0 #### [facility] [address] [place], [address] BACTERIA 0 SEEN Normal None Seen [facility] Comment on above: Order Comment: CLAU TER SPECIMEN Performed By: #### L 400.0001, M100.2200 #### [facility] [address] [place], [address] EPI,SQUAMOUS 0 SEEN Normal 5-10 [facility] Comment on above: Order Comment: CLAU TER SPECIMEN Performed By: #### L 400.0001, M100.2200 #### [facility] [address] [place], [address] Mucus Ql (Urine sed) 0 SEEN Normal [facility] Comment on above: Order Comment: CLAU TER SPECIMEN Performed By: #### L 400.0001, M100.2200 #### [facility] [address] [place], [address] Urine clarityOrdered By: Chavo Marroquin on 01-03-2025 Clarity (U) Turbid Clear [facility] Urine color determinationOrd ered By: Min Marroquin on 01-03-2025 Color (U) Yellow Yellow [facility] Urine cultureOrdered By: Chavo Marroquin on 01-03-2025 Bacteria identified Cx Nom (U) Klebsiella pneumoniae sp pneum Abnormal [facility] Bacteria identified Cx Nom (U) Escherichia coli Abnormal [facility] Urine glucose detectionOrder ed By: Min Marroquin on 01-03-2025 Glucose Ql (U) Normal mg/dl Normal [facility] Urine leukocyte esterase det ection by dipstickOrdered By: Min Marroquin on 01-03-2025 Leukocyte esterase Test strip Ql (U) 500 /ul High Negative [facility] Urine pHOrdered By: Min solis on 01-03-2025 pH (U) 6.0 [pH] 5.0 - 8.0 [facility] Urine sediment bacteria coun t by microscopy (number/high power field)Ordered By: Min Marroquin on 01-03-2025 Bacteria LM.HPF (Urine sed) [#/Area] 0 /[HPF] None Seen [facility] Urine specific gravity measu rementOrdered By: Min Marroquin on 01-03-2025 Specific gravity (U) [Rel density] 1.015 1.002-1.03 0 [facility] Urine urobilinogen measureme ntOrdered By: Min Marroquin on 01-03-2025 Urobilinogen Ql (U) Normal mg/dl Normal [facility] White blood cell countOrdere d By: Min Marroquin on 01-03-2025 White blood cell count >100 SEEN /hpf 0-5 [facility] International normalized rat io (INR) measurement by fingerstickOrdered By: Min Marroquin on 01-02-2025 INR Coag (BldC) [Relative time] 2.4 [facility] Comment on above: Critical Value > 4.0 Protime w/INR Fingerstickon 01-02-2025 INR Coag (PPP) [Relative time] 2.4 {INR} Normal [facility] Comment on above: Result Comment: Crit ical Value > 4.0 Performed By: #### L 9200.0000 #### [facility] [address] [place], [place] [address], [address] Protime Coagsen 25.4 SEC High 11.7-14.9 [facility] Comment on above: Performed By: #### L 9200.0000 #### [facility] [address] [place], [address] Whole blood prothrombin time Ordered By: Min Marroquin on 01-02-2025 PT Coag (Bld) [Time] 25.4 s High 11.7-14.9 [facility] International normalized rat io (INR) measurement by fingerstickOrdered By: Min Marroquin on 12-19-2024 INR Coag (BldC) [Relative time] 2.3 [facility] Comment on above: Critical Value > 4.0 Protime w/INR Fingerstickon 12-19-2024 INR Coag (PPP) [Relative time] 2.3 {INR} Normal [facility] Comment on above: Result Comment: Crit ical Value > 4.0 Performed By: #### L 9200.0000 #### [facility] [address] [place], [place], [id number] Protime Coagsen 24.7 SEC High 11.7-14.9 [facility] Comment on above: Performed By: #### L 9200.0000 #### [facility] [address] [place], [address] Whole blood prothrombin time Ordered By: Min Marroquin on 12-19-2024 PT Coag (Bld) [Time] 24.7 s High 11.7-14.9 [facility] CNOVon 12-06-2024 CNOV Office Visit (PSYLWM ) RANDOLPH HUNTER ([id number]) 1950 F Date Time Provider Department 12/06/24 11:00 AM GILMER COTTON PSYLWM During your visit today, we recorded the following information about you: Gilmer Cotton, PhD 12/06/2024 12:04 PM Signed [facility] Progress Note Randolph Hunter 12/06/2024 [id number] PROVIDER: Gilmer Cotton, PhD CPT Code: Time: [...] illness Pt moved now a week at [facility] [place] so far and she believes it [...] Assisted Living room while she is in [facility] rooms MEDICATIONS: Per medical record: Current [...] SAFETY SYRINGE) 1 mL 25 gauge x 8" Use as directed once a month. blood sugar diagnostic ([employer] VERIO TEST STRIPS) test strip Test blood [...] Issues: No change from previous appointment DIAGNOSIS: [place] I: Depres (more content not included)... Normal [facility] Anion gap in Serum or Plasma Ordered By: Min Marroquin on 12-05-2024 Anion gap [Moles/Vol] 6 mmol/L 11-03 [facility] BUN/creatinine ratioOrdered By: Min Marroquin on 12-05-2024 Urea nitrogen/Creatinine [Mass ratio] 17.2 mg/mg 04-10 [facility] Basic Metabolic Profile (BMP )on 12-05-2024 BUN/CRE 17.2 RATIO Normal 04-10 [facility] Comment on above: Order Comment: 130.2 Performed By: #### L 500.2500, L100.0500, L300.3900 #### [facility] [address] [place], [address] Calcium [Mass/Vol] 8.5 mg/dL Normal 7.6-11.0 [facility] Comment on above: Order Comment: 130.2 Performed By: #### L 500.2500, L100.0500, L300.3900 #### [facility] [address] [place], [address] Chloride [Moles/Vol] 107 mmol/L Normal 98-108 [facility] Comment on above: Order Comment: 130.2 Performed By: #### L 500.2500, L100.0500, L300.3900 #### [facility] [address] [place], [address] CO2 [Moles/Vol] 26.6 mmol/L Normal 21.0-32.0 [facility] Comment on above: Order Comment: 130.2 Performed By: #### L 500.2500, L100.0500, L300.3900 #### [facility] [address] [place], [address] Creatinine [Mass/Vol] 0.93 mg/dL Normal 0.70-1.20 [facility] Comment on above: Order Comment: 130.2 Performed By: #### L 500.2500, L100.0500, L300.3900 #### [facility] [address] [place], [address] GAP 6 Normal 5-15 [facility] Comment on above: Order Comment: 130.2 Performed By: #### L 500.2500, L100.0500, L300.3900 #### [facility] [address] [place], [address] GFR/1.73 sq M.predicted among non-blacks MDRD (S/P/Bld) [Vol rate/Area] 65 mL/min/{1.73_m2} Normal >60 [facility] Comment on above: Order Comment: 130.2 Result Comment: mL/m in/1.73m2 CKD-EPI Creatinine Equation (2020) Performed By: #### L 500.2500, L100.0500, L300.3900 #### [facility] [address] [place], [address] Glucose [Mass/Vol] 97 mg/dL Normal 70-99 [facility] Comment on above: Order Comment: 130.2 Performed By: #### L 500.2500, L100.0500, L300.3900 #### [facility] [address] [place], [address] Potassium [Moles/Vol] 4.9 mmol/L Normal 3.3-5.1 [facility] Comment on above: Order Comment: 130.2 Result Comment: Hemo lysis present, Results??could be affected. ?? Performed By: #### L 500.2500, L100.0500, L300.3900 #### [facility] [address] [place], [address] Sodium [Moles/Vol] 140 mmol/L Normal 133-145 [facility] Comment on above: Order Comment: 130.2 Performed By: #### L 500.2500, L100.0500, L300.3900 #### [facility] [address] [place], [address] Urea nitrogen [Mass/Vol] 16 mg/dL Normal 4-19 [facility] Comment on above: Order Comment: 130.2 Performed By: #### L 500.2500, L100.0500, L300.3900 #### [facility] [address] [place], [address] CBC-Complete Blood Cnt No Di ffon 12-05-2024 Erythrocyte distribution width (RBC) [Ratio] 13.6 % Normal 11.6-14.6 [facility] Comment on above: Order Comment: 130.2 Performed By: #### L 500.2500, L100.0500, L300.3900 #### [facility] [address] [place], [address] Hematocrit (Bld) [Volume fraction] 31.9 % Low 37-47 [facility] Comment on above: Order Comment: 130.2 Performed By: #### L 500.2500, L100.0500, L300.3900 #### [facility] [address] [place], [address] Hemoglobin (Bld) [Mass/Vol] 10.4 g/dL Low 12.0-15.0 [facility] Comment on above: Order Comment: 130.2 Performed By: #### L 500.2500, L100.0500, L300.3900 #### [facility] [address] [place], [address] MCH (RBC) [Entitic mass] 30.2 pg Normal 27.0-32.0 [facility] Comment on above: Order Comment: 130.2 Performed By: #### L 500.2500, L100.0500, L300.3900 #### [facility] [address] [place], [address] MCHC (RBC) [Mass/Vol] 32.6 g/dL Normal 32-36 [facility] Comment on above: Order Comment: 130.2 Performed By: #### L 500.2500, L100.0500, L300.3900 #### [facility] [address] [place], [address] MCV (RBC) [Entitic vol] 92.7 fL Normal 81-99 [facility] Comment on above: Order Comment: 130.2 Performed By: #### L 500.2500, L100.0500, L300.3900 #### [facility] [address] [place], [address] Platelet mean volume (Bld) [Entitic vol] 10.1 fL Normal 6.2-12.0 [facility] Comment on above: Order Comment: 130.2 Performed By: #### L 500.2500, L100.0500, L300.3900 #### [facility] [address] [place], [address] Platelets (Bld) [#/Vol] 147 10*3/uL Low 150-450 [facility] Comment on above: Order Comment: 130.2 Performed By: #### L 500.2500, L100.0500, L300.3900 #### [facility] [address] [place], [address] RBC (Bld) [#/Vol] 3.44 10*6/uL Low 4.2-5.4 [facility] Comment on above: Order Comment: 130.2 Performed By: #### L 500.2500, L100.0500, L300.3900 #### [facility] [address] [place], [address] RDW SD 45.9 fl High 35.1-43.9 [facility] Comment on above: Order Comment: 130.2 Performed By: #### L 500.2500, L100.0500, L300.3900 #### [facility] [address] [place], [address] WBC (Bld) [#/Vol] 4.1 10*3/uL Low 4.4-11.0 [facility] Comment on above: Order Comment: 130.2 Performed By: #### L 500.2500, L100.0500, L300.3900 #### [facility] [address] [place], [address] Carbon dioxide, total [Moles /volume] in Central venous bloodOrdered By: Min Marroquin on 12-05-2024 CO2 [Moles/Vol] 26.6 mmol/L 21.0-32.0 [facility] Chloride assayOrdered By: Rhea Marroquin on 12-05-2024 Chloride [Moles/Vol] 107 mmol/L 98-108 [facility] Erythrocyte distribution wid th ratioOrdered By: Min Marroquin on 12-05-2024 Erythrocyte distribution width (RBC) [Ratio] 13.6 % 11.6-14.6 [facility] Erythrocyte distribution wid th standard deviationOrdered By: Min Marroquin on 12-05-2024 Erythrocyte distribution width (RBC) [Ratio] 45.9 fl High 35.1-43.9 [facility] Glomerular filtration rate ( GFR) estimation/1.73 sq m using serum, plasma, or whole bOrdered By: Min Marroquin on 12-05-2024 GFR/1.73 sq M.predicted among non-blacks MDRD (S/P/Bld) [Vol rate/Area] 65 mL/min/{1.73_m2} >60 [facility] Comment on above: mL/min/1.73m2 CKD-EP I Creatinine Equation (2020) Hematocrit Auto (Bld) [Volum e fraction]Ordered By: Min Marroquin on 12-05-2024 Hematocrit (Bld) [Volume fraction] 31.9 % Low 37-47 [facility] Hemoglobin measurementOrdere d By: Min Marroquin on 12-05-2024 Hemoglobin (Bld) [Mass/Vol] 10.4 g/dL Low 12.0-15.0 [facility] International normalized rat io (INR) calculationOrdered By: Min Marroquin on 12-05-2024 INR Coag (Bld) [Relative time] 1.7 {INR} [facility] MCV (mean corpuscular volume ) determinationOrdered By: Min Marroquin on 12-05-2024 MCV (RBC) [Entitic vol] 92.7 fL 81-99 [facility] Mean corpuscular hemoglobin (MCH) determinationOrdered By: Min Marroquin on 12-05-2024 MCH (RBC) [Entitic mass] 30.2 pg 27.0-32.0 [facility] Mean corpuscular hemoglobin concentration (MCHC) determinationOrdered By: Min Marroquin on 12-05-2024 MCHC (RBC) [Mass/Vol] 32.6 g/dL 32-36 [facility] Mean platelet volume determi nationOrdered By: Min Marroquin on 12-05-2024 Platelet mean volume (Bld) [Entitic vol] 10.1 fL 6.2-12.0 [facility] Platelet countOrdered By: Rhea Marroquin on 12-05-2024 Platelets (Bld) [#/Vol] 147 10*3/uL Low 150-450 [facility] Potassium measurement (mass/ volume)Ordered By: Min Marroquin on 12-05-2024 Potassium (Unsp spec) [Mass/Vol] 4.9 mmol/L 3.3-5.1 [facility] Comment on above: Hemolysis present, R esults could be affected. Prothrombin Time w/INRon INR Coag (PPP) [Relative time] 1.7 {INR} Normal [facility] Comment on above: Order Comment: 130.2 Performed By: #### L 500.2500, L100.0500, L300.3900 #### [facility] [address] [place], [place] [address], [address] PT Coag (PPP) [Time] 20.2 s High 11.7-14.9 [facility] Comment on above: Order Comment: 130.2 Performed By: #### L 500.2500, L100.0500, L300.3900 #### [facility] [address] [place], [address] Prothrombin timeOrdered By: Min Marroquin on 12-05-2024 PT Coag (PPP) [Time] 20.2 s High 11.7-14.9 [facility] RBC Auto (Bld) [#/Vol]Ordere d By: Min Marroquin on 12-05-2024 RBC (Bld) [#/Vol] 3.44 10*6/uL Low 4.2-5.4 [facility] Serum creatinine measurement (mass/volume)Ordered By: Min Marroquin on 12-05-2024 Creatinine [Mass/Vol] 0.93 mg/dL 0.70-1.20 [facility] Serum glucose measurement (m ass/volume)Ordered By: Min Marroquin on 12-05-2024 Glucose [Mass/Vol] 97 mg/dL 70-99 [facility] Serum or plasma calcium aura urement (mass/volume)Ordered By: Min Marroquin on 12-05-2024 Calcium [Mass/Vol] 8.5 mg/dL 7.6-11.0 [facility] Serum or plasma urea nitroge n measurement (mass/volume)Ordered By: Min Marroqiun on 12-05-2024 Urea nitrogen [Mass/Vol] 16 mg/dL 4-19 [facility] Sodium levelOrdered By: Min Marroquin on 12-05-2024 Sodium [Moles/Vol] 140 mmol/L 133-145 [facility] White blood cell (WBC) count Ordered By: Min Marroquin on 12-05-2024 WBC (Bld) [#/Vol] 4.1 10*3/uL Low 4.4-11.0 [facility] MRI ANKLE WO IVCON LTon - MRI ANKLE WO IVCON LT * * [...] please feel free to contact [facility] eRadiology at [phone]. [id number] [facility] CNOVon 10-27-2024 CNOV Office Visit (PODIWS ) RANDOLPH HUNTER ([id number]) 1950 F Date Time Provider Department 10/27/24 11:15 AM STEVEN PELAEZ During your visit today, we recorded the following information about you: Del Isbell, RN 10/27/2024 11:29 AM Signed Patient presents [...] and injured herself. She is currently at [facility]. Has a history of cerebral [...] sugar diagnost (more content not included)... Normal [facility] XR ANKLE 3V AP/LAT/OBL LTon 10-27-2024 [...] No radiographic evidence of acute osseous injury Pattern Drafter: CEM Transcribe Date/Time: Nov 01 2024 4:44P Dictated by : JAYDEN JOVEL MD This examination was interpreted and the report reviewed and electronically signed by: JAYDEN JOVEL MD on Nov 01 2024 4:45PM EST [id number] Normal [facility] XR TIBIA FIBULA 2V AP/LAT LT [...] No radiographic evidence of acute osseous injury Pattern Drafter: PSCB Transcribe Date/Time: Nov 01 2024 4:44P Dictated by : JAYDEN JOVEL MD This examination was interpreted and the report reviewed and electronically signed by: JAYDEN JOVEL MD on Nov 01 2024 4:45PM EST [id number] Normal [facility] PT panel Coag (PPP)on 2024 INR Coag (PPP) [Relative time] 2.3 {INR} High 0.9-1.3 [facility] Comment on above: Order Comment: Speci men Type: BLOOD SPECIMEN Ordering Facility: [facility] Address: [address] [place] [address] Result Comment: Kaycee min K Antagonist (VKA) Therapeutic Range: INR 2 to 3 (Target INR of 2.5) Note: For patients treated with VKA drugs, such as warfarin, the [place] [employer] 2012 Guideline recommends [...] Chest 2012, 141:7S-47S Roshni CASTILLO et al. [facility] 2017, 70: 252-289 Performed By: #### 3 4528-0 #### [facility] CLIA [id number] [address] [place] [address] [facility] PT Coag (PPP) [Time] 23.1 s High 9.7-13.0 [facility] Comment on above: Order Comment: Suzanne garcia Type: BLOOD SPECIMEN Ordering Facility: [facility] Address: [address] [place] [address] Performed By: #### 3 4528-0 #### [facility] CLIA [id number] [address] [place], [place] [id number] [facility] PT panel Coag (PPP)on 2024 INR Coag (PPP) [Relative time] 3.8 {INR} High 0.9-1.3 [facility] Comment on above: Order Comment: Suzanne garcia Type: BLOOD SPECIMEN Ordering Facility: [facility] Address: [address] [place] [address] Result Comment: Kaycee min K Antagonist (VKA) Therapeutic Range: INR 2 to 3 (Target INR of 2.5) Note: For patients treated with VKA drugs, such as warfarin, the [place] 2012 Guideline recommends [...] 3 4528-0 #### [facility] CLIA [id number] [address] [place] [address] [facility] PT Coag (PPP) [Time] 37.1 s High 9.7-13.0 [facility] Comment on above: Order Comment: Suzanne garcia Type: BLOOD SPECIMEN Ordering Facility: [facility] Address: [address] [place] [address], [facility], [place] [address] Performed By: #### 3 4528-0 #### [facility] CLIA [id number] [address] [place] [address] [place] CNOVon 10-19-2024 CNOV Office Visit (ORMDNA ) RANDOLPH HUNTER ([id number]) 1950 F Date Time Provider Department 10/19/24 [...] Time: -- 09/18/2024 Frequency: Intermittent Intervention/Comfort measure: Medication;Reposition;Relaxa tion MEDICATIONS Current Outpatient Medications on File Prior [...] directed once a month. blood sugar diagnostic (FieldooUCH VERIO TEST STRIPS) test strip Test blood [...] breathe hourly while awake. PT/INR test meter (VivaBioCellGUCHEK XS PRO) misc Check Protime weekly. Dx: [...] Status Change Penicillins Hives Dioxicillin Promethazine Intolerance Kpmfftx-Vam-Vsa Red* Myalgia PAST MEDICAL HISTORY PAST MEDICAL HISTORY Diagnosis Date CAD (coronary artery disease) Carotid a (more content not included)... Normal [facility] Large Joint Arthro/Inj: L kn ee [...] these instructions. Informed Consent Consent Obtained: Verbal [place] Protocol A moment to CARE was completed. [...] the bedside nurse for hospitalized patients) applicable. [facility] CNDSon 09-28-2024 CNDS HNO ID: [id number] Author: SAGE LOERA MD Service: Hospital Medicine [...] inability to stand pivot necessitating going to residential facility for rehab SUMMARY OF WHAT HAPPENED WHILE I WAS IN THE HOSPITAL: Orthopedics agrees no surgical intervention now resume exercises when you get to the residential facility no ligamentous injury evident on CT [...] to bear weight to transfer will need residential home placement Anticoagulation: Prior to admission: Warfarin [...] (cerebral palsy) (HCC) (POA: Yes) --Presented to [place] ED for evaluation of left knee pain [...] lupus erythematosus) (HCC) (POA: Yes) --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 Normal [facility] Magnesium SerPl-mCncon 09-28 Magnesium [Mass/Vol] 1.7 mg/dL Normal 1.7-2.3 [facility] Comment on above: Order Comment: Suzanne garcia Type: BLOOD SPECIMENOrdering Facility: [facility] Address: [address] [place] [address] Performed By: #### 1 9123-9 ####[facility] [id number] [place] [id number] [facility] NURSING PROGon 09-28-2024 NURSING PROG HNO ID: [id number] Author: CHARLEY BARRIENTOS RN Service: Nursing Author Type: Registered Nurse Type: Nursing Progress Note Filed: 09/28/2024 16:32 Note Text: Other: 1625: Patient discharged in stable condition. Left floor via cart w/[employer]. Discharge paperwork and all personal belongings w/patient. Normal [facility] PT panel Coag (PPP)on 2024 INR Coag (PPP) [Relative time] 2.1 {INR} High 0.9-1.3 [facility] Comment on above: Order Comment: Suzanne garcia Type: BLOOD SPECIMENOrdering Facility: [facility] Address: [address] [place] [address] Result Comment: Kaycee min K Antagonist (VKA) Therapeutic Range: INR 2 to 3 (Target INR of 2.5) Note: For patients treated with VKA drugs, such as warfarin, the [place] [employer] 2012 Guideline recommends [...] Chest 2012, 141:7S-47S Roshni CASTILLO et al. [facility] 2017, 70: 252-289 Performed By: #### 3 4528-0 ####[facility] [id number] [address] STATES OF [facility] PT Coag (PPP) [Time] 22.0 s High 9.7-13.0 [facility] Comment on above: Order Comment: Suzanne garcia Type: BLOOD SPECIMENOrdering Facility: [facility] Address: [address] [place] [address] Performed By: #### 3 4528-0 ####[facility] [id number] [address] PT panel Coag (PPP)on 2024 INR Coag (PPP) [Relative time] 2.8 {INR} High 0.9-1.3 [facility] Comment on above: Order Comment: Speccandelaria garcia Type: BLOOD SPECIMENOrdering Facility: [facility] Address: [address] [place] [address] Result Comment: Kaycee min K Antagonist (VKA) Therapeutic Range: INR 2 to 3 (Target INR of 2.5) Note: For patients treated with VKA drugs, such as warfarin, the [place] [employer] 2012 Guideline recommends [...] Chest 2012, 141:7S-47S Roshni RA, et al. [facility] 2017, 70: 252-289 Performed By: #### 3 4528-0 ####[facility] [id number] [place] [id number] [place] PT Coag (PPP) [Time] 27.9 s High 9.7-13.0 [facility] Comment on above: Order Comment: Speci men Type: BLOOD SPECIMENOrdering Facility: [facility] Address: [address] [place] [address] Performed By: #### 3 4528-0 ####[facility] [id number] [place] [id number] [facility] NUTRITIONon 09-26-2024 NUTRITION HNO ID: [id number] Author: SALVADOR ISLAS RD Service: Nutrition Therapy [...] 1 Frequency PM SNACK 09/19/24 1312 09/19/24 021 Diet Regular START NOW 09/19/24211 Anthropometrics: Height: 157.5 cm (5' 2") Weight: 94.9 kg (209 lb 3.5 oz) Body mass index is 38.27 kg/m?. Lines, Drains, and Airways Drain Duration External Collection Device 09/18/24 2332 [facility] 7 days MNT Billing: $ Reassessment: 1-15 minutes SIGNATURE: Salvador Islas RD PATIENT NAME: Randolph Hunter DATE: September 26, 2024 TIME: 3:09 PM Normal [facility] PT panel Coag (PPP)on 2024 INR Coag (PPP) [Relative time] 4.1 {INR} High 0.9-1.3 [facility] Comment on above: Order Comment: Speci men Type: BLOOD SPECIMENOrdering Facility: [facility] Address: [address] [place] [address] Result Comment: Kaycee min K Antagonist (VKA) Therapeutic Range: INR 2 to 3 (Target INR of 2.5) Note: For patients treated with VKA drugs, such as warfarin, the [place] [employer] 2012 Guideline recommends [...] 70: 252-289 Performed By: #### 3 4528-0 ####[facility]ORYCL[facility] [id number] [place], [place] [address] [place] [address] OF [facility] PT Coag (PPP) [Time] 39.9 s High 9.7-13.0 [facility] Comment on above: Order Comment: Speci men Type: BLOOD SPECIMENOrdering Facility: [facility] Address: [address], [place] [id number] Performed By: #### 3 4528-0 ####[facility]ORATORYCLIA [id number] [place] [address] [facility] THERAPY NTon 09-26-2024 THERAPY NT HNO ID: [id number] Author: ESTELLE CAGE PT Service: Physical Therapy Author Type: Physical Therapist Type: Therapy (PT/OT/Speech/Resp) Filed: 09/26/2024 12:08 Note Text: Summary: PT treatment Physical Therapy Treatment Summary SERVICE DATE: 09/26/2024 SERVICE TIME: 1130 to 1155 ROOM: [place] [address] PT 6 Clicks Score: 14 DISCHARGE RECOMMENDATIONS [...] is struggling to ambulate. Patient admitted to [facility] with Dx: Decreased activities of daily living (ADL), Fall at home, initial encounter Relevant Past Medical History: DM, edema, depression,asthma, obesity, irsutism, venous insufficiency, oseteomyeliitis of foot, SLE, cerebral palsy, pulmonary embolism, hypothyroidism, insomnai, CAD, migraines, HTN, hysterectomy HOME LIVING Patient Lives With: Facility Care, Spouse, Other: See Comment Comments: [facility] with spouse Assistance Available: 24-Hour Comments: [facility] staff for toileting and shower Entry To Home: No Stairs Number Of Stairs To Bed/Bath: 0 Tub/Shower Type: Accessible WIS with shower chair + grab bars, has assistance/supervision for transfers Laundry: [facility] staff completes Equipment Owned: Lift Chair, [...] DIAGNOSIS Reduced mobility-other TREATMENT INTERVENTIONS Therapeutic Activity (58236) Timed Code Treatment (minutes): 25 Skilled Treatment Time (minutes): 25 Therapeutic Activity (99116) Treatment Minutes: 25 $ Therapeutic Activity (35658) Billed Units: 2 units TRAINING AND EDUCATION [...] Assistance, Additional Inform (more content not included)... [facility] THERAPY NT HNO ID: [id number] Author: BARBARA CHU OTR/Abiodun Service: Occupational Therapy Author Type: Occupational Therapist Type: Therapy (PT/OT/Speech/Resp) Filed: 09/26/2024 11:51 Note Text: Summary: OT precert note Occupational Therapy Treatment Summary SERVICE DATE: 09/26/2024 SERVICE TIME: 1100 to 1136 ROOM: [id number] OT 6 Clicks Score: 13 DISCHARGE RECOMMENDATIONS [...] is struggling to ambulate. Patient admitted to [facility] with Dx: Decreased activities of daily living (ADL), Fall at home, initial encounter Relevant Past Medical History: DM, edema, depression,asthma, obesity, irsutism, venous insufficiency, oseteomyeliitis of foot, SLE, cerebral palsy, pulmonary embolism, hypothyroidism, insomnai, CAD, migraines, HTN, hysterectomy HOME LIVING Patient Lives With: Facility Care, Spouse, Other: See Comment Comments: [facility] with spouse Assistance Available: 24-Hour Comments: [facility] staff for toileting and shower Entry To Home: No Stairs Number Of Stairs To Bed/Bath: 0 Tub/Shower Type: Accessible WIS with shower chair + grab bars, has assistance/supervision for transfers Laundry: [facility] staff completes Equipment Owned: Lift Chair, [...] symptoms and signs-other TREATMENT INTERVENTIONS Therapeutic Exercise (51170), Self Custodial Management (39989) Timed Code Treatment (minutes): 27 Skilled Treatment [...] Contact Guard Assista (more content not included)... [facility] THERAPY NT HNO ID: [id number] Author: ESTELLE CAGE PT Service: Physical Therapy Author Type: Physical Therapist Type: Therapy (PT/OT/Speech/Resp) Filed: 09/26/2024 10:54 Note Text: PHYSICAL THERAPY MISSED VISIT SERVICE DATE: 09/26/2024 SERVICE TIME: 1045 ROOM: [place] [address] Patient not seen due to Patient Not Available.patient was cleaned up and had another bowel movement and has called for assist getting cleaned up. Will re approach when available/appropriate. Secure chat to team and spoke with cm. SIGNATURE: Estelle Cage PT PATIENT NAME: Randolph Hunter DATE: September 26, 2024 TIME: 10:53 AM [facility] NT HNO ID: [id number] Author: ESTELLE CAGE PT Service: Physical Therapy Author Type: Physical Therapist Type: Therapy (PT/OT/Speech/Resp) Filed: 09/26/2024 09:42 Note Text: Summary: PT missed visit PHYSICAL THERAPY MISSED VISIT SERVICE DATE: 09/26/2024 SERVICE TIME: 0930 ROOM: [place] [address] Patient not seen due to Patient Not Available. Patient was incontinent of bowel and PCNA in room to get patient cleaned up. Received request from for precert. Will re approach as patient is available. SIGNATURE: Estelle Cage PT PATIENT NAME: Randolph Hunter DATE: September 26, 2024 TIME: 9:41 AM [facility] THERAPY HNO ID: [id number] Author: TAINA PERDUE OT/L Service: Occupational Therapy Author Type: Occupational Therapist Type: Therapy (PT/OT/Speech/Resp) Filed: 09/26/2024 09:21 Note Text: Summary: OT Missed Visit OCCUPATIONAL THERAPY MISSED VISIT SERVICE DATE: 09/26/2024 SERVICE TIME: 0908 ROOM: [place] [address] Patient not seen due to Patient Not Available. Initiated OT session however pt became incontinent of bowel during progression of supine>sit. PCNA and RN notified, deferred further OT at this time. CM notified as this patient has precert needs. Will re-attempt as schedule allows. SIGNATURE: Tania Perdue, OT/L PATIENT NAME: aRndolph Hunter DATE: September 26, 2024 TIME: 9:19 AM Normal [facility] CBC panel Auto (Bld)on 09-25 Erythrocyte distribution width (RBC) [Ratio] 13.5 % Normal 11.5-15.0 [facility] Comment on above: Order Comment: Speci men Type: BLOOD SPECIMENOrdering Facility: [facility] Address: [address] [place] [address] Performed By: #### 5 8410-2 ####[facility]ATORYCLIA [id number] [address] STATES OF [facility] Hematocrit (Bld) [Volume fraction] 38.8 % Normal 36.0-46.0 [facility] Comment on above: Order Comment: Speci men Type: BLOOD SPECIMENOrdering Facility: [facility] Address: [address] [place] [address] Performed By: #### 5 8410-2 ####CERVANTES LABORATORYCLIA [id number] [address] [place] Hemoglobin (Bld) [Mass/Vol] 13.1 g/dL Normal 11.5-15.5 [facility] Comment on above: Order Comment: Speci men Type: BLOOD SPECIMENOrdering Facility: [facility] Address: [address] [place] [address] Performed By: #### 5 8410-2 ####CERVANTES LABORATORYCLIA [id number] [address] OF [place] MCH (RBC) [Entitic mass] 30.7 pg Normal 26.0-34.0 [facility] Comment on above: Order Comment: Speci men Type: BLOOD SPECIMENOrdering Facility: [facility] Address: [address] [place] [address] Performed By: #### 5 8410-2 ####CERVANTES LABORATORYCLIA [id number] [address] MCHC (RBC) [Mass/Vol] 33.8 g/dL Normal 30.5-36.0 [facility] Comment on above: Order Comment: Speci men Type: BLOOD SPECIMENOrdering Facility: [facility] Address: [address] [place] [address] Performed By: #### 5 8410-2 ####CERVANTES LABORATORYCLIA [id number] [address] MCV (RBC) [Entitic vol] 90.9 fL Normal 80.0-100.0 [facility] Comment on above: Order Comment: Speci men Type: BLOOD SPECIMENOrdering Facility: [facility] Address: [address] [place] [address] Performed By: #### 5 8410-2 ####CERVANTES LABORATORYCLIA [id number] [address] Nucleated RBC (Bld) [#/Vol] 10*3/uL Normal <0.01 [facility] Comment on above: Order Comment: Speci men Type: BLOOD SPECIMENOrdering Facility: [facility] Address: [address] [place] [address] Performed By: #### 5 8410-2 ####CERVANTES LABORATORYCLIA [id number] [address] Platelet mean volume (Bld) [Entitic vol] 10.2 fL Normal 9.0-12.7 [facility] Comment on above: Order Comment: Speci men Type: BLOOD SPECIMENOrdering Facility: [facility] Address: [address] [place] [address] Performed By: #### 5 8410-2 ####CERVANTES LABORATORYCLIA [id number] [address] Platelets (Bld) [#/Vol] 200 10*3/uL Normal 150-400 [facility] Comment on above: Order Comment: Speci men Type: BLOOD SPECIMENOrdering Facility: [facility] Address: [address] [place] [address] Performed By: #### 5 8410-2 ####CERVANTES LABORATORYCLIA [id number] [address] OF [facility] RBC (Bld) [#/Vol] 4.27 10*6/uL Normal 3.90-5.20 [facility] Comment on above: Order Comment: Speci men Type: BLOOD SPECIMENOrdering Facility: [facility] Address: [address] [place] [address] Performed By: #### 5 8410-2 ####XENIA LABORATORYCLIA [id number] [address] OF [facility] WBC (Bld) [#/Vol] 10.28 10*3/uL Normal 3.70-11.00 [facility] Comment on above: Order Comment: Speci men Type: BLOOD SPECIMENOrdering Facility: [facility] Address: [address] [place] [address] Performed By: #### 5 8410-2 ####CERVANTES LABORATORYCLIA [id number] [address] Comprehensive metabolic 2000 panelon 09-25-2024 Albumin [Mass/Vol] 3.0 g/dL Low 3.9-4.9 [facility] Comment on above: Order Comment: Speci men Type: BLOOD SPECIMENOrdering Facility: [facility] Address: [address] [place] [address] Performed By: #### 1 9123-9, 36287-4 ####CERVANTES LABORATORYCLIA [id number] [address] ALP [Catalytic activity/Vol] 41 U/L Normal 34-123 [facility] Comment on above: Order Comment: Speci men Type: BLOOD SPECIMENOrdering Facility: [facility] Address: [address] [place] [address] Performed By: #### 1 9123-9, 98351-9 ####CERVANTES LABORATORYCLIA [id number] [place] [address] [place] ALT [Catalytic activity/Vol] 11 U/L Normal 7-38 [facility] Comment on above: Order Comment: Speci men Type: BLOOD SPECIMENOrdering Facility: [facility] Address: [address] [place] [address] Performed By: #### 1 9123-9, 73318-3 ####CERVANTES LABORATORYCLIA [id number] [place] [address] [place] Anion gap [Moles/Vol] 11 mmol/L Normal 8-15 [facility] Comment on above: Order Comment: Speci men Type: BLOOD SPECIMENOrdering Facility: [facility] Address: [facility] [place] [address] Performed By: #### 1 9123-9, 15375-1 ####CERVANTES LABORATORYCLIA [id number] [place] [address] [place] AST [Catalytic activity/Vol] 21 U/L Normal 13-35 [facility] Comment on above: Order Comment: Speci men Type: BLOOD SPECIMENOrdering Facility: [facility] Address: [address] [place] [address] Performed By: #### 1 9123-9, 72976-5 ####CERVANTES LABORATORYCLIA [id number] [place] [address] [place] Bilirubin [Mass/Vol] 0.3 mg/dL Normal 0.2-1.3 [facility] Comment on above: Order Comment: Speci men Type: BLOOD SPECIMENOrdering Facility: [facility] Address: [address] [place] [address] Performed By: #### 1 9123-9, 67386-0 ####CERVANTES LABORATORYCLIA [id number] [place] [address] [place] Calcium [Mass/Vol] 9.0 mg/dL Normal 8.5-10.2 [facility] Comment on above: Order Comment: Speci men Type: BLOOD SPECIMENOrdering Facility: [facility] Address: [address] [place] [address] Performed By: #### 1 9123-9, 62747-9 ####CERVANTES LABORATORYCLIA [id number] [place] [address] [place] Chloride [Moles/Vol] 99 mmol/L Normal 98-107 [facility] Comment on above: Order Comment: Suzanne garcia Type: BLOOD SPECIMENOrdering Facility: [facility] Address: [address] [place] [address] Performed By: #### 1 9123-9, 73122-9 ####CERVANTES LABORATORYCLIA [id number] [place] [id number] [place] CO2 [Moles/Vol] 24 mmol/L Normal 22-30 [facility] Comment on above: Order Comment: Suzanne garcia Type: BLOOD SPECIMENOrdering Facility: [facility] Address: [address] [place] [address] Performed By: #### 1 9123-9, 83880-5 ####CERVANTES LABORATORYCLIA [id number] [place] [address] [place] Creatinine [Mass/Vol] 0.66 mg/dL Normal 0.58-0.96 [facility] Comment on above: Order Comment: Suzanne garcia Type: BLOOD SPECIMENOrdering Facility: [facility] Address: [address] [place] [address] Performed By: #### 1 9123-9, 93149-7 ####CERVANTES LABORATORYCLIA [id number] [address] Creatinine and Glomerular filtration rate.predicted panel (S/P/Bld) 93 mL/min/1.73m??? Normal >=60 [facility] Comment on above: Order Comment: Suzanne garcia Type: BLOOD SPECIMENOrdering Facility: [facility] Address: [address] [place] [address] Result Comment: Winifred mated Glomerular Filtration Rate [...] actual GFR. Performed By: #### 1 9123-9, ####XENIA LABORATORYCLIA [id number] [place] [address] [place] Glucose [Mass/Vol] 202 mg/dL High 74-99 [facility] Comment on above: Order Comment: Suzanne radha Type: BLOOD SPECIMENOrdering Facility: [facility] Address: [address] [place] [address] Result Comment: The [place] [employer] (ADA) provides guidance for cutoff [...] Standards of Medical Care in Diabetes 2016, [place] [employer]. Diabetes Care. 2016.39(Suppl 1). Performed By: #### 1 239, ####XENIA LABORATORYCLIA [id number] [place] [address] [place] Potassium [Moles/Vol] 4.4 mmol/L Normal 3.7-5.1 [facility] Comment on above: Order Comment: Naeem radha Type: BLOOD SPECIMENOrdering Facility: [facility] Address: [address] [place] [address] Performed By: #### 1 239, ####XENIA LABORATORYCLIA [id number] [place] [id number] [place] Protein [Mass/Vol] 6.0 g/dL Low 6.3-8.0 [facility] Comment on above: Order Comment: Suzanne radha Type: BLOOD SPECIMENOrdering Facility: [facility] Address: [address] [place] [address] Performed By: #### 1 91239, ####XENIA LABORATORYCLIA [id number] [place] [address] [place] Sodium [Moles/Vol] 134 mmol/L Low 136-144 [facility] Comment on above: Order Comment: Suzanne garcia Type: BLOOD SPECIMENOrdering Facility: [facility] Address: [address] [place] [address] Performed By: #### 1 9123-9, 64559-7 ####CERVANTES LABORATORYCLIA [id number] [place] [address] [place] Urea nitrogen [Mass/Vol] 14 mg/dL Normal 7-21 [facility] Comment on above: Order Comment: Suzanne garcia Type: BLOOD SPECIMENOrdering Facility: [facility] Address: [address] [place] [address] Performed By: #### 1 9123-9, 43229-0 ####XENIA LABORATORYCLIA [id number] [place] [address] [place] Magnesium SerPl-mCncon 09-25 Magnesium [Mass/Vol] 1.5 mg/dL Low 1.7-2.3 [facility] Comment on above: Order Comment: Suzanne garcia Type: BLOOD SPECIMENOrdering Facility: [facility] Address: [address] [place] [address] Performed By: #### 1 9123-9, 27809-9 ####XENIA LABORATORYCLIA [id number] [place] [address] [place] PT panel Coag (PPP)on 2024 INR Coag (PPP) [Relative time] 4.2 {INR} High 0.9-1.3 [facility] Comment on above: Order Comment: Suzanne garcia Type: BLOOD SPECIMENOrdering Facility: [facility] Address: [address] [place] [address] Result Comment: Kaycee min K Antagonist (VKA) Therapeutic Range: INR 2 to 3 (Target INR of 2.5) Note: For patients treated with VKA drugs, such as warfarin, the [place] [employer] 2012 Guideline recommends [...] Chest 2012, 141:7S-47S Roshni RA et al. [facility] 2017, 70: 252-289 Performed By: #### 3 4528-0 ####XENIA LABORATORYCLIA [id number] [address] OF [facility] PT Coag (PPP) [Time] 41.3 s High 9.7-13.0 [facility] Comment on above: Order Comment: Suzanne garcia Type: BLOOD SPECIMENOrdering Facility: [facility] Address: [address] [place] [address] Performed By: #### 3 4528-0 ####XENIA LABORATORYCLIA [id number] [address] OF [place] CONSULT PROGon 09-23-2024 CONSULT PROG HNO ID: [id number] Author: PIPE FREEMAN RPh Service: Pharmacy Author [...] Freeman RPh DATE/TIME: 09/23/2024 12:07 PM Normal [facility] PT panel Coag (PPP)on 2024 INR Coag (PPP) [Relative time] 2.9 {INR} High 0.9-1.3 [facility] Comment on above: Order Comment: Suzanne garcia Type: BLOOD SPECIMENOrdering Facility: [facility] Address: [address] [place], [place] [address] Result Comment: Kaycee min K Antagonist (VKA) Therapeutic Range: INR 2 to 3 (Target INR of 2.5) Note: For patients treated with VKA drugs, such as warfarin, the [place] [employer] 2012 Guideline recommends [...] Chest 2012, 141:7S-47S Roshni RA, et al. [facility] 2017, 70: 252-289 Performed By: #### 3 4528-0 ####XENIA LABORATORYCLIA [id number] [place] [address] [place] PT Coag (PPP) [Time] 29.1 s High 9.7-13.0 [facility] Comment on above: Order Comment: Suzanne garcia Type: BLOOD SPECIMENOrdering Facility: [facility] Address: [address] [place] [address] Performed By: #### 3 4528-0 ####XENIA LABORATORYCLIA [id number] [address] OF [place] PT panel Coag (PPP)on 2024 INR Coag (PPP) [Relative time] 2.8 {INR} High 0.9-1.3 [facility] Comment on above: Order Comment: Suzanne garcia Type: BLOOD SPECIMENOrdering Facility: [facility] Address: [address] [place], [place] [address] Result Comment: Kaycee min K Antagonist (VKA) Therapeutic Range: INR 2 to 3 (Target INR of 2.5) Note: For patients treated with VKA drugs, such as warfarin, the [place] [employer] 2012 Guideline recommends [...] 70: 252-289 Performed By: #### 3 4528-0 ####XENIA LABORATORYCLIA [id number] [address] STATES OF [facility] PT Coag (PPP) [Time] 27.8 s High 9.7-13.0 [facility] Comment on above: Order Comment: Speci men Type: BLOOD SPECIMENOrdering Facility: [facility] Address: [address] [place] [address] Performed By: #### 3 4528-0 ####XENIA LABORATORYCLIA [id number] [address] OF [facility] THERAPY NTon 09-22-2024 THERAPY NT HNO ID: [id number] Author: ESTELLE CAGE PT Service: Physical Therapy Author Type: Regional Operations Director Type: Therapy (PT/OT/Speech/Resp) Filed: 09/22/2024 17:13 Note Text: Attestation signed by Estelle aCge PT at 09/22/2024 5:13 PM I reviewed and agree with the documentation corresponding to this therapy visit. SIGNATURE: Estelle Cage PT DATE: September 22, 2024 TIME: 5:13 PM Summary: PT Treat Physical Therapy Treatment Summary SERVICE DATE: 09/22/2024 SERVICE TIME: 1408 to 1439 ROOM: [place] [address] PT 6 Clicks Score: 12 DISCHARGE RECOMMENDATIONS [...] is struggling to ambulate. Patient admitted to [facility] with Dx: Decreased activities of daily living (ADL), Fall at home, initial encounter Relevant Past Medical History: DM, edema, depression,asthma, obesity, irsutism, venous insufficiency, oseteomyeliitis of foot, SLE, cerebral palsy, pulmonary embolism, hypothyroidism, insomnai, CAD, migraines, HTN, hysterectomy HOME LIVING Patient Lives With: Facility Care, Spouse, Other: See Comment Comments: [facility] with spouse Assistance Available: 24-Hour Comments: [facility] staff for toileting and shower Entry To Home: No Stairs Number Of Stairs To Bed/Bath: 0 Tub/Shower Type: Accessible WIS with shower chair + grab bars, has assistance/supervision for transfers Laundry: [facility] staff completes Equipment Owned: Lift Chair, [...] DIAGNOSIS Reduced mobility-other TREATMENT INTERVENTIONS Therapeutic Activity (11816) Timed Code Treatment (minutes): 31 Skilled Treatment Time (minutes): 31 Therapeutic Activity (63619) Treatment Minutes: 31 $ Therapeutic Activity (04342) Billed Units: 2 units TRAINING AND EDUCATION [...] Sit: Modified In (more content not included)... [facility] THERAPY NT HNO ID: [id number] Author: CHRISTIANO MAYEN OT/Abiodun Service: ? Author Type: Occupational Therapist Type: Therapy (PT/OT/Speech/Resp) Filed: 09/22/2024 09:46 Note Text: Summary: OT Treatment Occupational Therapy Treatment Summary SERVICE DATE: 09/22/2024 SERVICE TIME: 0858 to 0940 ROOM: [id number] OT 6 Clicks Score: 14 DISCHARGE RECOMMENDATIONS [...] is struggling to ambulate. Patient admitted to [facility] with Dx: Decreased activities of daily living (ADL), Fall at home, initial encounter Relevant Past Medical History: DM, edema, depression,asthma, obesity, irsutism, venous insufficiency, oseteomyeliitis of foot, SLE, cerebral palsy, pulmonary embolism, hypothyroidism, insomnai, CAD, migraines, HTN, hysterectomy HOME LIVING Patient Lives With: Facility Care, Spouse, Other: See Comment Comments: [place] with spouse Assistance Available: 24-Hour Comments: [facility] staff for toileting and shower Entry To Home: No Stairs Number Of Stairs To Bed/Bath: 0 Tub/Shower Type: Accessible WIS with shower chair + grab bars, has assistance/supervision for transfers Laundry: [facility] staff completes Equipment Owned: Lift Chair, [...] (generalized), Unsteadiness on feet TREATMENT INTERVENTIONS Self Custodial Management (33139), Therapeutic Activity (14336) Timed Code Treatment (minutes): 40 Skilled Treatment Time (minutes): 40 TRAINING AND EDUCATION PROVIDED Activity Adaptation/Compensatory Strategies, Adaptive Equipment/DME, Bed Mobility, Benefits of In-Hospital Mobility, Cognitive Skills, Command Following, Discharge Planning, Expected Functional Level, Functional Mobility Involving ADLs, Grooming Tasks, Fine Motor Coordination, Insight into Deficits, Lower Extremity Dressing, Feeding Tasks, Memory/Attention, Orientation, Positioning, Role of Occupational Therapy, Safety/Judgment, Sitting Balance to Improve [place] with ADLs/Self-Care, Standing Balance to Improve [place] with ADLs/Self-Care, Transfer - Sit to Stand, Upper Extremity Bathing THERAPEUTIC SKILLS USED Activity Dosing, Cues for Sequencing/Proper Technique for Activity, Cuing Tactile, Cuing Verbal, Cuing Visual, Facilitation of Joint Range of Motion, Movement Facilitation, Muscle Activation Facilitation, Physical Assist, Task Analysis Learning, Teach-Back fo (more content not included)... Normal [facility] CBC panel Auto (Bld)on 09-21 Erythrocyte distribution width (RBC) [Ratio] 13.2 % Normal 11.5-15.0 [facility] Comment on above: Order Comment: Speci men Type: BLOOD SPECIMENOrdering Facility: [facility] Address: [address] [place] [address] Performed By: #### 5 8410-2 ####CERVANTES LABORATORYCLIA [id number] [place] [address] [place] Hematocrit (Bld) [Volume fraction] 33.6 % Low 36.0-46.0 [facility] Comment on above: Order Comment: Speci men Type: BLOOD SPECIMENOrdering Facility: [facility] Address: [address] [place] [address] Performed By: #### 5 8410-2 ####CERVANTES LABORATORYCLIA [id number] [place] [address] [place] Hemoglobin (Bld) [Mass/Vol] 11.4 g/dL Low 11.5-15.5 [facility] Comment on above: Order Comment: Speci men Type: BLOOD SPECIMENOrdering Facility: [facility] Address: [address] [place] [address] Performed By: #### 5 8410-2 ####CERVANTES LABORATORYCLIA [id number] [address] MCH (RBC) [Entitic mass] 30.8 pg Normal 26.0-34.0 [facility] Comment on above: Order Comment: Speci men Type: BLOOD SPECIMENOrdering Facility: [facility] Address: [address] [place] [address] Performed By: #### 5 8410-2 ####CERVANTES LABORATORYCLIA [id number] [address] MCHC (RBC) [Mass/Vol] 33.9 g/dL Normal 30.5-36.0 [facility] Comment on above: Order Comment: Speci men Type: BLOOD SPECIMENOrdering Facility: [facility] Address: [address] [place] [address] Performed By: #### 5 8410-2 ####CERVANTES LABORATORYCLIA [id number] [address] MCV (RBC) [Entitic vol] 90.8 fL Normal 80.0-100.0 [facility] Comment on above: Order Comment: Speci men Type: BLOOD SPECIMENOrdering Facility: [facility] Address: [address] [place] [address] Performed By: #### 5 8410-2 ####CERVANTES LABORATORYCLIA [id number] [address] Nucleated RBC (Bld) [#/Vol] 10*3/uL Normal <0.01 [facility] Comment on above: Order Comment: Speci men Type: BLOOD SPECIMENOrdering Facility: [facility] Address: [address] [place] [address] Performed By: #### 5 8410-2 ####CERVANTES LABORATORYCLIA [id number] [address] Platelet mean volume (Bld) [Entitic vol] 10.2 fL Normal 9.0-12.7 [facility] Comment on above: Order Comment: Speci men Type: BLOOD SPECIMENOrdering Facility: [facility] Address: [address] [place] [address] Performed By: #### 5 8410-2 ####CERVANTES LABORATORYCLIA [id number] [address] OF [place] Platelets (Bld) [#/Vol] 177 10*3/uL Normal 150-400 [facility] Comment on above: Order Comment: Speci men Type: BLOOD SPECIMENOrdering Facility: [facility] Address: [address] [place] [address] Performed By: #### 5 8410-2 ####CERVANTES LABORATORYCLIA [id number] [address] OF [place] RBC (Bld) [#/Vol] 3.70 10*6/uL Low 3.90-5.20 [facility] Comment on above: Order Comment: Speci men Type: BLOOD SPECIMENOrdering Facility: [facility] Address: [address] [place] [address] Performed By: #### 5 8410-2 ####CERVANTES LABORATORYCLIA [id number] [address] WBC (Bld) [#/Vol] 5.94 10*3/uL Normal 3.70-11.00 [facility] Comment on above: Order Comment: Speci men Type: BLOOD SPECIMENOrdering Facility: [facility] Address: [address] [place] [address] Performed By: #### 5 8410-2 ####CERVANTES LABORATORYCLIA [id number] [address] Comprehensive metabolic 2000 panelon 09-21-2024 Albumin [Mass/Vol] 2.8 g/dL Low 3.9-4.9 [facility] Comment on above: Order Comment: Speci men Type: BLOOD SPECIMENOrdering Facility: [facility] Address: [address] [place] [address] Performed By: #### 1 9123-9, 75330-4 ####CERVANTES LABORATORYCLIA [id number] [address] ALP [Catalytic activity/Vol] 33 U/L Low 34-123 [facility] Comment on above: Order Comment: Speci men Type: BLOOD SPECIMENOrdering Facility: [facility] Address: [address] [place] [address] Performed By: #### 1 23-9, 39194-8 ####CERVANTES LABORATORYCLIA [id number] [place] [address] [place] ALT [Catalytic activity/Vol] 7 U/L Normal 7-38 [facility] Comment on above: Order Comment: Speci men Type: BLOOD SPECIMENOrdering Facility: [facility] Address: [address] [place] [address] [place] [address] Performed By: #### 1 23-9, 62006-7 ####CERVANTES LABORATORYCLIA [id number] [place] [address] [place] Anion gap [Moles/Vol] 8 mmol/L Normal 8-15 [facility] Comment on above: Order Comment: Speci men Type: BLOOD SPECIMENOrdering Facility: [facility] Address: [facility] [place] [place] [address] Performed By: #### 1 23-9, 88719-4 ####CERVANTES LABORATORYCLIA [id number] [place] [address] [place] AST [Catalytic activity/Vol] 18 U/L Normal 13-35 [facility] Comment on above: Order Comment: Speci men Type: BLOOD SPECIMENOrdering Facility: [facility] Address: [facility] [place] [address] Performed By: #### 1 23-9, 24015-5 ####CERVANTES LABORATORYCLIA [id number] [place] [address] [place] Bilirubin [Mass/Vol] 0.2 mg/dL Normal 0.2-1.3 [facility] Comment on above: Order Comment: Speci men Type: BLOOD SPECIMENOrdering Facility: [facility] Address: [facility] [place] [address] Performed By: #### 1 9123-9, 05370-4 ####CERVANTES LABORATORYCLIA [id number] [place] [address] [place] Calcium [Mass/Vol] 8.4 mg/dL Low 8.5-10.2 [facility] Comment on above: Order Comment: Speci men Type: BLOOD SPECIMENOrdering Facility: [facility] Address: [address] [place] [address] Performed By: #### 1 9123-9, ####CERVANTES LABORATORYCLIA [id number] [place] [address] [place] Chloride [Moles/Vol] 103 mmol/L Normal 98-107 [facility] Comment on above: Order Comment: Speci men Type: BLOOD SPECIMENOrdering Facility: [facility] Address: [address] [place] [address] Performed By: #### 1 9123-9, 68915-7 ####CERVANTES LABORATORYCLIA [id number] [place] [address] [place] CO2 [Moles/Vol] 27 mmol/L Normal 22-30 [facility] Comment on above: Order Comment: Speci men Type: BLOOD SPECIMENOrdering Facility: [facility] Address: [address] [place] [address] Performed By: #### 1 23-9, 88215-5 ####CERVANTES LABORATORYCLIA [id number] [place] [address] [place] Creatinine [Mass/Vol] 0.79 mg/dL Normal 0.58-0.96 [facility] Comment on above: Order Comment: Speci men Type: BLOOD SPECIMENOrdering Facility: [facility] Address: [address] [place] [address] Performed By: #### 1 9123-9, ####CERVANTES LABORATORYCLIA [id number] [address] OF [place] Creatinine and Glomerular filtration rate.predicted panel (S/P/Bld) 79 mL/min/1.73m??? Normal >=60 [facility] Comment on above: Order Comment: Speci men Type: BLOOD SPECIMENOrdering Facility: [facility] Address: [address] [place] [address] Result Comment: Winifred mated Glomerular Filtration Rate [...] Performed By: #### 1 9123-9, ####CERVANTES LABORATORYCLIA [id number] [place] [address] [place] Glucose [Mass/Vol] 115 mg/dL High 74-99 [facility] Comment on above: Order Comment: Suzanne garcia Type: BLOOD SPECIMENOrdering Facility: [facility] Address: [address] [place] [address] Result Comment: The [place] Diabetes Association (ADA) provides guidance for cutoff [...] Standards of Medical Care in Diabetes 2016, [place] [employer]. Diabetes Care. 2016.39(Suppl 1). Performed By: #### 1 9123-9, ####CERVANTES LABORATORYCLIA [id number] [place] [id number] [place] Potassium [Moles/Vol] 4.8 mmol/L Normal 3.7-5.1 [facility] Comment on above: Order Comment: Suzanne garcia Type: BLOOD SPECIMENOrdering Facility: [facility] Address: [address] [place] [id number] Performed By: #### 1 9123-9, ####CERVANTES LABORATORYCLIA [id number] [place] [address] [place] Protein [Mass/Vol] 5.6 g/dL Low 6.3-8.0 [facility] Comment on above: Order Comment: Suzanne garcia Type: BLOOD SPECIMENOrdering Facility: [facility] Address: [address] [place] [address] Performed By: #### 1 9123-9, 08357-2 ####CERVANTES LABORATORYCLIA [id number] [place] [address] [place] Sodium [Moles/Vol] 138 mmol/L Normal 136-144 [facility] Comment on above: Order Comment: Speci men Type: BLOOD SPECIMENOrdering Facility: [facility] Address: [address] [place] [address] Performed By: #### 1 9123-9, 05591-2 ####CERVANTES LABORATORYCLIA [id number] [place] [address] [place] Urea nitrogen [Mass/Vol] 16 mg/dL Normal 7-21 [facility] Comment on above: Order Comment: Suzanne garcia Type: BLOOD SPECIMENOrdering Facility: [facility] Address: [address] [place] [address] Performed By: #### 1 9123-9, 35216-7 ####CERVANTES LABORATORYCLIA [id number] [place] [address] [place] Magnesium SerPl-mCncon 09-21 Magnesium [Mass/Vol] 1.9 mg/dL Normal 1.7-2.3 [facility] Comment on above: Order Comment: Suzanne garcia Type: BLOOD SPECIMENOrdering Facility: [facility] Address: [address] [place] [address] Performed By: #### 1 9123-9, 58711-9 ####CERVANTES LABORATORYCLIA [id number] [place] [address] [place] PT panel Coag (PPP)on 2024 INR Coag (PPP) [Relative time] 2.5 {INR} High 0.9-1.3 [facility] Comment on above: Order Comment: Speci men Type: BLOOD SPECIMENOrdering Facility: [facility] Address: [address] [place] [address] Result Comment: Kaycee min K Antagonist (VKA) Therapeutic Range: INR 2 to 3 (Target INR of 2.5) Note: For patients treated with VKA drugs, such as warfarin, the [place] [employer] 2012 Guideline recommends [...] Chest 2012, 141:7S-47S Roshni RA, et al. [facility] 2017, 70: 252-289 Performed By: #### 3 4528-0 ####XENIA LABORATORYCLIA [id number] [address] [place] OF [place] PT Coag (PPP) [Time] 25.1 s High 9.7-13.0 [facility] Comment on above: Order Comment: Suzanne garcia Type: BLOOD SPECIMENOrdering Facility: [facility] Address: [address] [place] [address] Performed By: #### 3 4528-0 ####XENIA LABORATORYCLIA [id number] [address] CBC panel Auto (Bld)on 09-20 Erythrocyte distribution width (RBC) [Ratio] 13.2 % Normal 11.5-15.0 [facility] Comment on above: Order Comment: Suzanne garcia Type: BLOOD SPECIMENOrdering Facility: [facility] Address: [address] [place] [address] Performed By: #### 5 8410-2 ####XENIA LABORATORYCLIA [id number] [address] Hematocrit (Bld) [Volume fraction] 36.8 % Normal 36.0-46.0 [facility] Comment on above: Order Comment: Suzanne garcia Type: BLOOD SPECIMENOrdering Facility: [facility] Address: [address] [place] [address] Performed By: #### 5 8410-2 ####CERVANTES LABORATORYCLIA [id number] [address] Hemoglobin (Bld) [Mass/Vol] 12.4 g/dL Normal 11.5-15.5 [facility] Comment on above: Order Comment: Speci men Type: BLOOD SPECIMENOrdering Facility: [facility] Address: [address] [place] [address] Performed By: #### 5 8410-2 ####CERVANTES LABORATORYCLIA [id number] [address] MCH (RBC) [Entitic mass] 30.8 pg Normal 26.0-34.0 [facility] Comment on above: Order Comment: Speci men Type: BLOOD SPECIMENOrdering Facility: [facility] Address: [address] [place] [address] Performed By: #### 5 8410-2 ####CERVANTES LABORATORYCLIA [id number] [address] MCHC (RBC) [Mass/Vol] 33.7 g/dL Normal 30.5-36.0 [facility] Comment on above: Order Comment: Speci men Type: BLOOD SPECIMENOrdering Facility: [facility] Address: [address] [place] [address] Performed By: #### 5 8410-2 ####CERVANTES LABORATORYCLIA [id number] [address] MCV (RBC) [Entitic vol] 91.5 fL Normal 80.0-100.0 [facility] Comment on above: Order Comment: Speci men Type: BLOOD SPECIMENOrdering Facility: [facility] Address: [address] [place] [address] Performed By: #### 5 8410-2 ####CERVANTES LABORATORYCLIA [id number] [address] Nucleated RBC (Bld) [#/Vol] 10*3/uL Normal <0.01 [facility] Comment on above: Order Comment: Speci men Type: BLOOD SPECIMENOrdering Facility: [facility] Address: [address] [place] [address] Performed By: #### 5 8410-2 ####CERVANTES LABORATORYCLIA [id number] [place] [id number] [facility] [place] Platelet mean volume (Bld) [Entitic vol] 10.2 fL Normal 9.0-12.7 [facility] Comment on above: Order Comment: Speci men Type: BLOOD SPECIMENOrdering Facility: [facility] Address: [address] [place] [address] Performed By: #### 5 8410-2 ####XENIA LABORATORYCLIA [id number] [place] [address] [facility] OF [place] Platelets (Bld) [#/Vol] 175 10*3/uL Normal 150-400 [facility] Comment on above: Order Comment: Speci men Type: BLOOD SPECIMENOrdering Facility: [facility] Address: [address] [place] [address] Performed By: #### 5 8410-2 ####XENIA LABORATORYCLIA [id number] [address] RBC (Bld) [#/Vol] 4.02 10*6/uL Normal 3.90-5.20 [facility] Comment on above: Order Comment: Speci men Type: BLOOD SPECIMENOrdering Facility: [facility] Address: [address] [place] [address] Performed By: #### 5 8410-2 ####XENIA LABORATORYCLIA [id number] [address] [place] WBC (Bld) [#/Vol] 5.70 10*3/uL Normal 3.70-11.00 [facility] Comment on above: Order Comment: Speci men Type: BLOOD SPECIMENOrdering Facility: [facility] Address: [address] [place] [address] Performed By: #### 5 8410-2 ####CERVANTES LABORATORYCLIA [id number] [place] [id number] [facility] Comprehensive metabolic 2000 panelon 09-20-2024 Albumin [Mass/Vol] 3.1 g/dL Low 3.9-4.9 [facility] Comment on above: Order Comment: Speci men Type: BLOOD SPECIMENOrdering Facility: [facility] Address: [address] [place] [id number] Performed By: #### 2 4322-8, ####CERVANTES LABORATORYCLIA [id number] [place] [address] [place] ALP [Catalytic activity/Vol] 41 U/L Normal 34-123 [facility] Comment on above: Order Comment: Speci men Type: BLOOD SPECIMENOrdering Facility: [facility] Address: [address] [place] [address] Performed By: #### 2 4322-8, ####CERVANTES LABORATORYCLIA [id number] [place] [address] [place] ALT [Catalytic activity/Vol] 7 U/L Normal 7-38 [facility] Comment on above: Order Comment: Speci men Type: BLOOD SPECIMENOrdering Facility: [facility] Address: [address] [place] [address] [place] [address] Performed By: #### 2 8, ####CERVANTES LABORATORYCLIA [id number] [place] [id number] [place] Anion gap [Moles/Vol] 7 mmol/L Low 8-15 [facility] Comment on above: Order Comment: Speci men Type: BLOOD SPECIMENOrdering Facility: [facility] Address: [address] [place] [address] [place] [address] Performed By: #### 2 432-8, ####CERVANTES LABORATORYCLIA [id number] [place] [id number] [place] AST [Catalytic activity/Vol] 16 U/L Normal 13-35 [facility] Comment on above: Order Comment: Speci men Type: BLOOD SPECIMENOrdering Facility: [facility] Address: [address] [place] [phone] Performed By: #### 2 4323-8, ####CERVANTES LABORATORYCLIA [id number] [place] [address] [place] Bilirubin [Mass/Vol] 0.4 mg/dL Normal 0.2-1.3 [facility] Comment on above: Order Comment: Speci men Type: BLOOD SPECIMENOrdering Facility: [facility] Address: [address] [place] [address] Performed By: #### 2 4323-8, ####CERVANTES LABORATORYCLIA [id number] [place] [address] [place] Calcium [Mass/Vol] 8.9 mg/dL Normal 8.5-10.2 [facility] Comment on above: Order Comment: Speci men Type: BLOOD SPECIMENOrdering Facility: [facility] Address: [address] [place] [address] Performed By: #### 2 4328, ####CERVATNES LABORATORYCLIA [id number] [place] [address] [place] Chloride [Moles/Vol] 102 mmol/L Normal 98-107 [facility] Comment on above: Order Comment: Speci men Type: BLOOD SPECIMENOrdering Facility: [facility] Address: [address] [place] [address] Performed By: #### 2 432-8, ####CERVANTES LABORATORYCLIA [id number] [place] [address] [place] CO2 [Moles/Vol] 29 mmol/L Normal 22-30 [facility] Comment on above: Order Comment: Speci men Type: BLOOD SPECIMENOrdering Facility: [facility] Address: [address] [place] [address] Performed By: #### 2 4323-8, ####CERVANTES LABORATORYCLIA [id number] [place] [id number] [place] Creatinine [Mass/Vol] 0.82 mg/dL Normal 0.58-0.96 [facility] Comment on above: Order Comment: Speci men Type: BLOOD SPECIMENOrdering Facility: [facility] Address: [address] [place] [address] Performed By: #### 2 4323-8, ####CERVANTES LABORATORYCLIA [id number] [place] [id number] [place] Creatinine and Glomerular filtration rate.predicted panel (S/P/Bld) 76 mL/min/1.73m??? Normal >=60 [facility] Comment on above: Order Comment: Suzanne garcia Type: BLOOD SPECIMENOrdering Facility: [facility] Address: [address] [place] [address] Result Comment: Winifred mated Glomerular Filtration Rate [...] actual GFR. Performed By: #### 2 4323-8, 53824-4 ####CERVANTES LABORATORYCLIA [id number] [place] [address] [place] Glucose [Mass/Vol] 134 mg/dL High 74-99 [facility] Comment on above: Order Comment: Suzanne garcia Type: BLOOD SPECIMENOrdering Facility: [facility] Address: [address] [place] [address] Result Comment: The [place] Diabetes [employer] (ADA) provides guidance for cutoff [...] Standards of Medical Care in Diabetes 2016, [place] [employer]. Diabetes Care. 2016.39(Suppl 1). Performed By: #### 2 4323-8, 22275-3 ####XENIA LABORATORYCLIA [id number] [place] [id number] [place] Potassium [Moles/Vol] 4.7 mmol/L Normal 3.7-5.1 [facility] Comment on above: Order Comment: Suzanne garcia Type: BLOOD SPECIMENOrdering Facility: [facility] Address: [address] [place] [address] Performed By: #### 2 4323-8, ####CERVANTES LABORATORYCLIA [id number] [address] STATES [facility] Protein [Mass/Vol] 5.9 g/dL Low 6.3-8.0 [facility] Comment on above: Order Comment: Speci men Type: BLOOD SPECIMENOrdering Facility: [facility] Address: [address] [place] [address] Performed By: #### 2 432-8, ####CERVANTES LABORATORYCLIA [id number] [address] [place] Sodium [Moles/Vol] 138 mmol/L Normal 136-144 [facility] Comment on above: Order Comment: Speci men Type: BLOOD SPECIMENOrdering Facility: [facility] Address: [address] [place] [address] Performed By: #### 2 43208-27, ####CERVANTES LABORATORYCLIA [id number] [address] STATES [facility] Urea nitrogen [Mass/Vol] 11 mg/dL Normal 7-21 [facility] Comment on above: Order Comment: Speci men Type: BLOOD SPECIMENOrdering Facility: [facility] Address: [address] [place] [address] Performed By: #### 2 4323-8, ####CERVANTES LABORATORYCLIA [id number] [place] [address] [place] Magnesium SerPl-mCncon 09-20 Magnesium [Mass/Vol] 1.9 mg/dL Normal 1.7-2.3 [facility] Comment on above: Order Comment: Speci men Type: BLOOD SPECIMENOrdering Facility: [facility] Address: [facility] [place] [address] Performed By: #### 2 4323-8, ####CERVANTES LABORATORYCLIA [id number] [place] [address] [place] PT panel Coag (PPP)on 2024 INR Coag (PPP) [Relative time] 1.6 {INR} High 0.9-1.3 [facility] Comment on above: Order Comment: Suzanne garcia Type: BLOOD SPECIMENOrdering Facility: [facility] Address: [address] [place], [place] [id number] Result Comment: Kaycee min K Antagonist (VKA) Therapeutic Range: INR 2 to 3 (Target INR of 2.5) Note: For patients treated with VKA drugs, such as warfarin, the [place] [employer] 2012 Guideline recommends [...] 70: 252-289 Performed By: #### 3 4528-0 ####XENIA LABORATORYCLIA [id number] [address] [place] PT Coag (PPP) [Time] 16.7 s High 9.7-13.0 [facility] Comment on above: Order Comment: Suzanne garcia Type: BLOOD SPECIMENOrdering Facility: [facility] Address: [address] [place], [place] [address] Performed By: #### 3 4528-0 ####XENIA LABORATORYCLIA [id number] [address] [place] THERAPY NTon 09-20-2024 THERAPY NT HNO ID: [id number] Author: CHRISTIANO MAYEN, OT/L Service: ? Author Type: Occupational Therapist Type: Therapy (PT/OT/Speech/Resp) Filed: 09/20/2024 11:14 Note Text: Summary: OT Evaluation Occupational Therapy Evaluation Summary SERVICE DATE: 09/20/2024 SERVICE TIME: 1031 to 1106 ROOM: [id number] OT 6 Clicks Score: 14 DISCHARGE RECOMMENDATIONS [...] is struggling to ambulate. Patient admitted to [facility] with Dx: Decreased activities of daily living (ADL), Fall at home, initial encounter Relevant Past Medical History: DM, edema, depression,asthma, obesity, irsutism, venous insufficiency, oseteomyeliitis of foot, SLE, cerebral palsy, pulmonary embolism, hypothyroidism, insomnai, CAD, migraines, HTN, hysterectomy HOME LIVING Patient Lives With: Facility Care, Spouse, Other: See Comment Comments: [place] with spouse Assistance Available: 24-Hour Comments: [facility] staff for toileting and shower Entry To Home: No Stairs Number Of Stairs To Bed/Bath: 0 Tub/Shower Type: Accessible WIS with shower chair + grab bars, has assistance/supervision for transfers Laundry: [facility] staff completes Equipment Owned: Lift Chair, [...] Unsteadiness on feet TREATMENT INTERVENTIONS Evaluation, Self Custodial Management (73978) Timed Code Treatment (minutes): 17 Skilled Treatment Time (minutes): 32 TRAINING AND EDUCATION PROVIDED Activity Adaptation/Compensatory Strategies, Adaptive Equipment/DME, Bed Mobility, Benefits of In-Hospital Mobility, Cognitive Skills, Command Following, Coping Skills/Resiliency, Discharge Planning, Expected Functional Level, Functional Mobility Involving ADLs, Insight into Deficits, Lower Extremity Dressing, Memory/Attention, Orientation, Positioning, Pain Management, Safety/Judgment, Role of Occupational Therapy, Sitting Balance to Improve [place] with ADLs/Self-Care, Standing Balance to Improve [place] with ADLs/Self-Care, Toileting , Transfer - Sit to Stand THERAPEUTIC SKILLS USED Activity Dosing, Cues for Sequencing/Proper Technique for Activity, Cuing Tactile, Cuing Verbal, Cuing Visual, Facilitation of Joint Range of Motion, Movement Facilitation, Muscle Activation Facilitation, Physical Assist, Teach-Back for Ed (more content not included)... Normal [facility] CBC panel Auto (Bld)on 09-19 Erythrocyte distribution width (RBC) [Ratio] 13.2 % Normal 11.5-15.0 [facility] Comment on above: Order Comment: Speci men Type: BLOOD SPECIMENOrdering Facility: [facility] Address: [address] [place] [address] Performed By: #### 5 8410-2 ####CERVANTES LABORATORYCLIA [id number] [address] Hematocrit (Bld) [Volume fraction] 33.3 % Low 36.0-46.0 [facility] Comment on above: Order Comment: Speci men Type: BLOOD SPECIMENOrdering Facility: [facility] Address: [address] [place] [address] Performed By: #### 5 8410-2 ####CERVANTES LABORATORYCLIA [id number] [address] OF [place] Hemoglobin (Bld) [Mass/Vol] 11.0 g/dL Low 11.5-15.5 [facility] Comment on above: Order Comment: Speci men Type: BLOOD SPECIMENOrdering Facility: [facility] Address: [address] [place] [address] Performed By: #### 5 8410-2 ####CERVANTES LABORATORYCLIA [id number] [address] MCH (RBC) [Entitic mass] 30.4 pg Normal 26.0-34.0 [facility] Comment on above: Order Comment: Speci men Type: BLOOD SPECIMENOrdering Facility: [facility] Address: [address] [place] [address] Performed By: #### 5 8410-2 ####CERVANTES LABORATORYCLIA [id number] [address] MCHC (RBC) [Mass/Vol] 33.0 g/dL Normal 30.5-36.0 [facility] Comment on above: Order Comment: Speci men Type: BLOOD SPECIMENOrdering Facility: [facility] Address: [facility] [place] [address] Performed By: #### 5 8410-2 ####CERVANTES LABORATORYCLIA [id number] [address] [place] MCV (RBC) [Entitic vol] 92.0 fL Normal 80.0-100.0 [facility] Comment on above: Order Comment: Speci men Type: BLOOD SPECIMENOrdering Facility: [facility] Address: [address] [place] [address] Performed By: #### 5 8410-2 ####CERVANTES LABORATORYCLIA [id number] [address] Nucleated RBC (Bld) [#/Vol] 10*3/uL Normal <0.01 [facility] Comment on above: Order Comment: Speci men Type: BLOOD SPECIMENOrdering Facility: [facility] Address: [address] [place] [address] Performed By: #### 5 8410-2 ####CERVANTES LABORATORYCLIA [id number] [address] Platelet mean volume (Bld) [Entitic vol] 10.2 fL Normal 9.0-12.7 [facility] Comment on above: Order Comment: Speci men Type: BLOOD SPECIMENOrdering Facility: [facility] Address: [address] [place] [address] Performed By: #### 5 8410-2 ####CERVANTES LABORATORYCLIA [id number] [address] [place] Platelets (Bld) [#/Vol] 158 10*3/uL Normal 150-400 [facility] Comment on above: Order Comment: Speci men Type: BLOOD SPECIMENOrdering Facility: [facility] Address: [address] [place] [address] Performed By: #### 5 8410-2 ####CERVANTES LABORATORYCLIA [id number] [place] [address] [place] RBC (Bld) [#/Vol] 3.62 10*6/uL Low 3.90-5.20 [facility] Comment on above: Order Comment: Speci men Type: BLOOD SPECIMENOrdering Facility: [facility] Address: [address] [place] [address] Performed By: #### 5 8410-2 ####CERVANTES LABORATORYCLIA [id number] [address] OF [facility] WBC (Bld) [#/Vol] 7.29 10*3/uL Normal 3.70-11.00 [facility] Comment on above: Order Comment: Speci men Type: BLOOD SPECIMENOrdering Facility: [facility] Address: [facility] [place] [address] Performed By: #### 5 8410-2 ####CERVANTES LABORATORYCLIA [id number] [address] Comprehensive metabolic 2000 panelon 09-19-2024 Albumin [Mass/Vol] 2.7 g/dL Low 3.9-4.9 [facility] Comment on above: Order Comment: Speci men Type: BLOOD SPECIMENOrdering Facility: [facility] Address: [address] [place] [address] Performed By: #### 2 4323-8, ####CERVANTES LABORATORYCLIA [id number] [address] [place] ALP [Catalytic activity/Vol] 36 U/L Normal 34-123 [facility] Comment on above: Order Comment: Speci men Type: BLOOD SPECIMENOrdering Facility: [facility] Address: [address] [place] [address] Performed By: #### 2 4323-8, ####CERVANTES LABORATORYCLIA [id number] [address] [place] ALT [Catalytic activity/Vol] 6 U/L Low 7-38 [facility] Comment on above: Order Comment: Speci men Type: BLOOD SPECIMENOrdering Facility: [facility] Address: [address] [place] [address] Performed By: #### 2 4323-8, ####CERVANTES LABORATORYCLIA [id number] [place] [address] [place] Anion gap [Moles/Vol] 13 mmol/L Normal 8-15 [facility] Comment on above: Order Comment: Speci men Type: BLOOD SPECIMENOrdering Facility: [facility] Address: [address] [place] [id number] Performed By: #### 2 4328, ####CERVANTES LABORATORYCLIA [id number] [place] [address] [place] AST [Catalytic activity/Vol] 19 U/L Normal 13-35 [facility] Comment on above: Order Comment: Speci men Type: BLOOD SPECIMENOrdering Facility: [facility] Address: [address] [place] [address] [place] [address] Performed By: #### 2 4328, ####CERVANTES LABORATORYCLIA [id number] [place] [id number] [place] Bilirubin [Mass/Vol] 0.5 mg/dL Normal 0.2-1.3 [facility] Comment on above: Order Comment: Speci men Type: BLOOD SPECIMENOrdering Facility: [facility] Address: [address] [place] [address] Performed By: #### 2 8, ####CERVANTES LABORATORYCLIA [id number] [place] [id number] [place] Calcium [Mass/Vol] 8.6 mg/dL Normal 8.5-10.2 [facility] Comment on above: Order Comment: Speci men Type: BLOOD SPECIMENOrdering Facility: [facility] Address: [address] [place] [id number] Performed By: #### 2 4323-8, ####CERVANTES LABORATORYCLIA [id number] [place] [id number] [place] Chloride [Moles/Vol] 103 mmol/L Normal 98-107 [facility] Comment on above: Order Comment: Speci men Type: BLOOD SPECIMENOrdering Facility: [facility] Address: [address] [place] [address] Performed By: #### 2 4323-8, ####[facility] LABORATORYCLIA [id number] [place] [id number] [place] CO2 [Moles/Vol] 24 mmol/L Normal 22-30 [facility] Comment on above: Order Comment: Suzanne garcia Type: BLOOD SPECIMENOrdering Facility: [facility] Address: [address] [place] [address] Performed By: #### 2 432-8, ####[facility] LABORATORYCLIA [id number] [place] [address] [place] Creatinine [Mass/Vol] 0.76 mg/dL Normal 0.58-0.96 [facility] Comment on above: Order Comment: Suzanne garcia Type: BLOOD SPECIMENOrdering Facility: [facility] Address: [address] [place] [address] Performed By: #### 2 4328, ####CERV[facility]ES LABORATORYCLIA [id number] [address] Creatinine and Glomerular filtration rate.predicted panel (S/P/Bld) 83 mL/min/1.73m??? Normal >=60 [facility] Comment on above: Order Comment: Suzanne garcia Type: BLOOD SPECIMENOrdering Facility: [facility] Address: [address] [place] [address] Result Comment: Winifred mated Glomerular Filtration Rate [...] Performed By: #### 2 4323-8, ####CERVANTES LABORATORYCLIA [id number] [place] [id number] [place] Glucose [Mass/Vol] 106 mg/dL High 74-99 [facility] Comment on above: Order Comment: Suzanne garcia Type: BLOOD SPECIMENOrdering Facility: [facility] Address: [address] [place] [address] Result Comment: The [place] Diabetes Association (ADA) provides guidance for cutoff [...] Standards of Medical Care in Diabetes 2016, [place] [employer] Association. Diabetes Care. 2016.39(Suppl 1). Performed By: #### 2 4328, ####CERVANTES LABORATORYCLIA [id number] [place] [address] [place] Potassium [Moles/Vol] 4.7 mmol/L Normal 3.7-5.1 [facility] Comment on above: Order Comment: Speci men Type: BLOOD SPECIMENOrdering Facility: [facility] Address: [address] [place] [id number] Performed By: #### 2 4323-01, ####CERVANTES LABORATORYCLIA [id number] [place] [address] [place] Protein [Mass/Vol] 5.3 g/dL Low 6.3-8.0 [facility] Comment on above: Order Comment: Speci men Type: BLOOD SPECIMENOrdering Facility: [facility] Address: [address] [place] [address] Performed By: #### 2 4328, ####CERVANTES LABORATORYCLIA [id number] [place] [address] [place] Sodium [Moles/Vol] 140 mmol/L Normal 136-144 [facility] Comment on above: Order Comment: Speci men Type: BLOOD SPECIMENOrdering Facility: [facility] Address: [address] [place] [address] Performed By: #### 2 4323-01, ####CERVANTES LABORATORYCLIA [id number] [place] [id number] [place] Urea nitrogen [Mass/Vol] 10 mg/dL Normal 7-21 [facility] Comment on above: Order Comment: Speci men Type: BLOOD SPECIMENOrdering Facility: [facility] Address: [address] [place] [address] Performed By: #### 2 4323-8, ####XENIA LABORATORYCLIA [id number] [place] [id number] [facility] [place] HISTORY PHYSICALon HISTORY PHYSICAL HNO ID: [id number] Author: ARNOL LIN PA-C Service: Hospital Medicine Author Type: Physician Cash Applications Analyst Type: H&P Filed: 09/19/2024 01:01 Note Text: [...] Casey MD, MD NIGHT AND WEEKEND COVERAGE: [facility] COVERAGE: Days: [phone], please page attending physician. Nights: [phone], please page [place] Hospitalist Night coverage pager [phone]. Subjective CHIEF COMPLAINT: Fall, left knee pain [...] daily. HYDROcodone-loyda (more content not included)... Normal [facility] Magnesium SerPl-mCncon 09-19 Magnesium [Mass/Vol] 1.8 mg/dL Normal 1.7-2.3 [facility] Comment on above: Order Comment: Speci men Type: BLOOD SPECIMENOrdering Facility: [facility] Address: [address] [place] [address] Performed By: #### 2 4323-8, 84068-7 ####XENIA LABORATORYCLIA [id number] [place] [address] [facility] [place] NUTRITIONon 09-19-2024 NUTRITION HNO ID: [id number] Author: DEVYN KAHN RD Service: Nutrition Therapy [...] Greater than 75% estimated energy needs (Drinks [place] Instant Breakfast and either Premier or Melton [...] to trial Ensure Max. Pt to order [place] Instant Breakfast. Diet Orders (From admission, onward) [...] Drain Duration External Collection Device 09/18/24 2332 [facility] <1 day MNT Billing: $ Initial Assessment: 1-15 minutes SIGNATURE: Devyn Kahn RD PATIENT NAME: Randolph Hunter DATE: September 19, 2024 TIME: 1:12 PM Normal [facility] PT panel Coag (PPP)on 2024 INR Coag (PPP) [Relative time] 1.7 {INR} High 0.9-1.3 [facility] Comment on above: Order Comment: Speci men Type: BLOOD SPECIMENOrdering Facility: [facility] Address: [address] [place] [address] Result Comment: Kaycee min K Antagonist (VKA) Therapeutic Range: INR 2 to 3 (Target INR of 2.5) Note: For patients treated with VKA drugs, such as warfarin, the [place] [employer]icians 2012 Guideline recommends [...] Chest 2012, 141:7S-47S Roshni RA, et al. [facility] 2017, 70: 252-289 Performed By: #### 3 4528-0 ####XENIA LABORATORYCLIA [id number] [address] [place] PT Coag (PPP) [Time] 17.9 s High 9.7-13.0 [facility] Comment on above: Order Comment: Speci men Type: BLOOD SPECIMENOrdering Facility: [facility] Address: [address] [place] [address] Performed By: #### 3 4528-0 ####XENIA LABORATORYCLIA [id number] [address] OF [facility] THERAPY NTon 09-19-2024 THERAPY NT HNO ID: [id number] Author: ESTELLE CAGE PT Service: Physical Therapy Author Type: Physical Therapist Type: Therapy (PT/OT/Speech/Resp) Filed: 09/19/2024 17:41 Note Text: Summary: PT evaluation Physical Therapy Evaluation Summary SERVICE DATE: 09/19/2024 SERVICE TIME: 1545 to 1629 ROOM: [id number] PT 6 Clicks Score: 12 DISCHARGE RECOMMENDATIONS [...] time. Leg Injury . Patient admitted to [facility] with Dx: Decreased activities of daily living (ADL), Fall at home, initial encounter Relevant Past Medical History: DM, edema, depression,asthma, obesity, irsutism, venous insufficiency, oseteomyeliitis of foot, SLE, cerebral palsy, pulmonary embolism, hypothyroidism, insomnai, CAD, migraines, HTN, hysterectomy HOME LIVING Patient Lives With: Spouse Assistance Available: 24-Hour, Other: See Comment Comments: [facility] staff for toileting and shower Entry [...] Reduced mobility-other TREATMENT INTERVENTIONS Evaluation, Therapeutic Activity (40385) Timed Code Treatment (minutes): 25 Skilled Treatment Time (minutes): 44 $ Evaluation-Low (94189) Billed Units: 1 unit Therapeutic Activity (60943) Treatment Minutes: 25 $ Therapeutic Activity (46259) Billed Units: 2 units Range of Motion: [...] Sit to Supi (more content not included)... [facility] THERAPY NT HNO ID: [id number] Author: ESTELLE CAGE PT Service: Physical Therapy Author Type: Physical Therapist Type: Therapy (PT/OT/Speech/Resp) Filed: 09/19/2024 11:07 Note Text: Summary: PT missed visit PHYSICAL THERAPY MISSED VISIT SERVICE DATE: 09/19/2024 SERVICE TIME: 1105 ROOM: [place] [address] Patient not seen due to Patient Not Available. Discussed patient with RN and patient in the process of transferring to . Will approach as patient is available/appropriate. SIGNATURE: Estelle Cage PT PATIENT NAME: Randolph Hunter DATE: September 19, 2024 TIME: 11:06 AM Normal [facility] URINALYSIS, REFLEX MICROSCOP ICon 09-19-2024 Bilirubin Ql (U) Negative Normal Negative [facility] Comment on above: Order Comment: Speci men Type: URINE SPECIMENOrdering Facility: [facility] Address: [address] [place] [address] Performed By: #### L [id number] ####[facility] HOSPITALIA [id number] [address] Clarity (Unsp spec) Clear Normal Clear [facility] Comment on above: Order Comment: Speci men Type: URINE SPECIMENOrdering Facility: [facility] Address: [address] [place] [address] Performed By: #### L [id number] ####CERVANTES LABORATORYCLIA [id number] [address] Color (U) Yellow Normal Yellow [facility] Comment on above: Order Comment: Speci men Type: URINE SPECIMENOrdering Facility: [facility] Address: [address] [place] [address] Performed By: #### L [id number] ####XENIA LABORATORYCLIA [id number] [address] [place] Glucose Test strip (U) [Mass/Vol] Negative Normal Negative [facility] Comment on above: Order Comment: Speci men Type: URINE SPECIMENOrdering Facility: [facility] Address: [address] [place] [address] Performed By: #### L [id number] ####CERVANTES LABORATORYCLIA [id number] [place] [address] [place] Hemoglobin Ql (U) Negative Normal Negative [facility] Comment on above: Order Comment: Speci men Type: URINE SPECIMENOrdering Facility: [facility] Address: [address] [place] [address] Performed By: #### L [id number] ####CERVANTES LABORATORYCLIA [id number] [address] [place] Ketones Ql (U) Negative Normal Negative [facility] Comment on above: Order Comment: Speci men Type: URINE SPECIMENOrdering Facility: [facility] Address: [address] [place] [address] Performed By: #### L [id number] ####CERVANTES LABORATORYCLIA [id number] [address] Leukocyte esterase Test strip Ql (U) Negative Normal Negative [facility] Comment on above: Order Comment: Speci men Type: URINE SPECIMENOrdering Facility: [facility] Address: [address] [place] [address] Performed By: #### L [id number] ####CERVANTES LABORATORYCLIA [id number] [address] [place] Nitrite Ql (U) Negative Normal Negative [facility] Comment on above: Order Comment: Speci men Type: URINE SPECIMENOrdering Facility: [facility] Address: [address] [place] [address] Performed By: #### L [id number] ####CERVANTES LABORATORYCLIA [id number] [address] pH (U) 7.0 [pH] Normal 5.0-8.0 [facility] Comment on above: Order Comment: Speci men Type: URINE SPECIMENOrdering Facility: [facility] Address: [address] [place] [address] Performed By: #### L [id number] ####CERVANTES LABORATORYCLIA [id number] [place] [id number] [place] [facility] Protein (U) [Mass/Vol] Negative Normal Negative [facility] Comment on above: Order Comment: Speci men Type: URINE SPECIMENOrdering Facility: [facility] Address: [address] [place] [address] Performed By: #### L [id number] ####XENIA LABORATORYCLIA [id number] [address] Specific gravity (U) [Rel density] 1.010 Normal 1.005-1.03 0 [facility] Comment on above: Order Comment: Speci men Type: URINE SPECIMENOrdering Facility: [facility] Address: [address] [place] [address] Performed By: #### L [id number] ####XENIA LABORATORYCLIA [id number] [address] [place] Urobilinogen Ql (U) 0.2 EU/dL Normal 0.2-1.0 EU/dL [facility] Comment on above: Order Comment: Speci men Type: URINE SPECIMENOrdering Facility: [facility] Address: [address] [place] [address] Performed By: #### L [id number] ####XENIA LABORATORYCLIA [id number] [place] [id number] [facility] ALLIED HEALTHon 09-18-2024 ALLIED HEALTH HNO ID: [id number] Author: OSVALDO BRUCE RT(R) Service: Radiology Author Type: Access Registrar Type: Allied Health Filed: 09/18/2024 23:10 Note [...] PATIENT PRESENTS WITH AN IMPLANTABLE OR ATTACHED CARD STRIPPER: No RADIOLOGY DEPARTMENT: General X-ray: Exam(s) Completed: Pelvis X-Ray: Pelvis with Hip Left Lower Extremity X-Ray(s): Ankle, Left PERIPHERAL IV DATA: Not applicable SIGNED BY: RT Lissett(R) September 18, 2024 11:09 PM [facility] HNO ID: [id number] Author: MONTSERRAT CUEVAS RT(R) Service: Radiology Author [...] PATIENT PRESENTS WITH AN IMPLANTABLE OR ATTACHED CARD STRIPPER: No RADIOLOGY DEPARTMENT: General X-ray: Exam(s) Completed: Lower Extremity X-Ray(s): Knee, AP / LAT Left PERIPHERAL IV DATA: Not applicable SIGNED BY: RT Geeta(R) September 18, 2024 10:31 AM [facility] CBC W Auto Differential pane l (Bld)on 09-18-2024 Basophils (Bld) [#/Vol] 10*3/uL Normal <0.11 [facility] Comment on above: Order Comment: Speci men Type: BLOOD SPECIMENOrdering Facility: [facility] Address: [address] [place] [address] Performed By: #### 5 7021-8 ####XENIA LABORATORYCLIA [id number] [address] [place] Basophils/100 WBC (Bld) 0.3 % Normal [facility] Comment on above: Order Comment: Speci men Type: BLOOD SPECIMENOrdering Facility: [facility] Address: [address] [place] [address] Performed By: #### 5 7021-8 ####CERVANTES LABORATORYCLIA [id number] [address] Differential cell count method Nom (Bld) Auto Normal [facility] Comment on above: Order Comment: Speci men Type: BLOOD SPECIMENOrdering Facility: [facility] Address: [address] [place] [address] Performed By: #### 5 7021-8 ####CERVANTES LABORATORYCLIA [id number] [place] [address] [place] Eosinophils (Bld) [#/Vol] 0.16 10*3/uL Normal <0.46 [facility] Comment on above: Order Comment: Speci men Type: BLOOD SPECIMENOrdering Facility: [facility] Address: [address] [place] [address] Performed By: #### 5 7021-8 ####CERVANTES LABORATORYCLIA [id number] [address] [place] [facility] Eosinophils/100 WBC (Bld) 2.1 % Normal [facility] Comment on above: Order Comment: Speci men Type: BLOOD SPECIMENOrdering Facility: [facility] Address: [address] [place] [address] Performed By: #### 5 7021-8 ####CERVANTES LABORATORYCLIA [id number] [address] [place] Erythrocyte distribution width (RBC) [Ratio] 13.3 % Normal 11.5-15.0 [facility] Comment on above: Order Comment: Speci men Type: BLOOD SPECIMENOrdering Facility: [facility] Address: [address] [place] [address] Performed By: #### 5 7021-8 ####CERVANTES LABORATORYCLIA [id number] [place] [address] [place] Hematocrit (Bld) [Volume fraction] 37.2 % Normal 36.0-46.0 [facility] Comment on above: Order Comment: Speci men Type: BLOOD SPECIMENOrdering Facility: [facility] Address: [address] [place] [address] Performed By: #### 5 7021-8 ####CERVANTES LABORATORYCLIA [id number] [place] [address] [place] Hemoglobin (Bld) [Mass/Vol] 12.6 g/dL Normal 11.5-15.5 [facility] Comment on above: Order Comment: Speci men Type: BLOOD SPECIMENOrdering Facility: [facility] Address: [address] [place] [address] Performed By: #### 5 7021-8 ####CERVANTES LABORATORYCLIA [id number] [place] [address] [place] Immature granulocytes (Bld) [#/Vol] 10*3/uL Normal <0.10 [facility] Comment on above: Order Comment: Speci men Type: BLOOD SPECIMENOrdering Facility: [facility] Address: [address] [place] [address] Performed By: #### 5 7021-8 ####CERVANTES LABORATORYCLIA [id number] [address] [place] Immature granulocytes/100 WBC (Bld) 0.3 % Normal [facility] Comment on above: Order Comment: Speci men Type: BLOOD SPECIMENOrdering Facility: [facility] Address: [address] [place] [address] Performed By: #### 5 7021-8 ####CERVANTES LABORATORYCLIA [id number] [place] [address] [place] Lymphocytes (Bld) [#/Vol] 1.71 10*3/uL Normal 1.00-4.00 [facility] Comment on above: Order Comment: Speci men Type: BLOOD SPECIMENOrdering Facility: [facility] Address: [address] [place] [address] Performed By: #### 5 7021-8 ####CERVANTES LABORATORYCLIA [id number] [address] Lymphocytes/100 WBC (Bld) 22.4 % Normal [facility] Comment on above: Order Comment: Speci men Type: BLOOD SPECIMENOrdering Facility: [facility] Address: [address] [place] [address] Performed By: #### 5 7021-8 ####CERVANTES LABORATORYCLIA [id number] [address] MCH (RBC) [Entitic mass] 30.8 pg Normal 26.0-34.0 [facility] Comment on above: Order Comment: Speci men Type: BLOOD SPECIMENOrdering Facility: [facility] Address: [address] [place] [address] Performed By: #### 5 7021-8 ####CERVANTES LABORATORYCLIA [id number] [address] [place] MCHC (RBC) [Mass/Vol] 33.9 g/dL Normal 30.5-36.0 [facility] Comment on above: Order Comment: Speci men Type: BLOOD SPECIMENOrdering Facility: [facility] Address: [address] [place] [address] Performed By: #### 5 7021-8 ####CERVANTES LABORATORYCLIA [id number] [address] MCV (RBC) [Entitic vol] 91.0 fL Normal 80.0-100.0 [facility] Comment on above: Order Comment: Speci men Type: BLOOD SPECIMENOrdering Facility: [facility] Address: [address] [place] [address] Performed By: #### 5 7021-8 ####CERVANTES LABORATORYCLIA [id number] [address] Monocytes (Bld) [#/Vol] 0.54 10*3/uL Normal <0.87 [facility] Comment on above: Order Comment: Speci men Type: BLOOD SPECIMENOrdering Facility: [facility] Address: [address] [place] [address] Performed By: #### 5 7021-8 ####CERVANTES LABORATORYCLIA [id number] [place] [address] [place] Monocytes/100 WBC (Bld) 7.1 % Normal [facility] Comment on above: Order Comment: Speci men Type: BLOOD SPECIMENOrdering Facility: [facility] Address: [address] [place] [address] Performed By: #### 5 7021-8 ####CERVANTES LABORATORYCLIA [id number] [place] [address] [place] Neutrophils (Bld) [#/Vol] 5.18 10*3/uL Normal 1.45-7.50 [facility] Comment on above: Order Comment: Speci men Type: BLOOD SPECIMENOrdering Facility: [facility] Address: [address] [place] [address] Performed By: #### 5 7021-8 ####CERVANTES LABORATORYCLIA [id number] [place] [address] [place] Neutrophils/100 WBC (Bld) 67.8 % Normal [facility] Comment on above: Order Comment: Speci men Type: BLOOD SPECIMENOrdering Facility: [facility] Address: [address] [place] [address] Performed By: #### 5 7021-8 ####CERVANTES LABORATORYCLIA [id number] [place] [address] [place] Nucleated RBC (Bld) [#/Vol] 10*3/uL Normal <0.01 [facility] Comment on above: Order Comment: Speci men Type: BLOOD SPECIMENOrdering Facility: [facility] Address: [address] [place] [address] Performed By: #### 5 7021-8 ####CERVANTES LABORATORYCLIA [id number] [place] [address] [place] Nucleated RBC/100 WBC (Bld) [Ratio] 0.0 /100 WBC Normal [facility] Comment on above: Order Comment: Speci men Type: BLOOD SPECIMENOrdering Facility: [facility] Address: [address] [place] [address] Performed By: #### 5 7021-8 ####CERVANTES LABORATORYCLIA [id number] [address] Platelet mean volume (Bld) [Entitic vol] 10.0 fL Normal 9.0-12.7 [facility] Comment on above: Order Comment: Speci men Type: BLOOD SPECIMENOrdering Facility: [facility] Address: [address] [place] [address] Performed By: #### 5 7021-8 ####CERVANTES LABORATORYCLIA [id number] [place] [address] [place] Platelets (Bld) [#/Vol] 176 10*3/uL Normal 150-400 [facility] Comment on above: Order Comment: Speci men Type: BLOOD SPECIMENOrdering Facility: [facility] Address: [address] [place] [address] Performed By: #### 5 7021-8 ####CERVANTES LABORATORYCLIA [id number] [address] RBC (Bld) [#/Vol] 4.09 10*6/uL Normal 3.90-5.20 [facility] Comment on above: Order Comment: Speci men Type: BLOOD SPECIMENOrdering Facility: [facility] Address: [address] [place] [address] Performed By: #### 5 7021-8 ####CERVANTES LABORATORYCLIA [id number] [address] WBC (Bld) [#/Vol] 7.63 10*3/uL Normal 3.70-11.00 [facility] Comment on above: Order Comment: Speci men Type: BLOOD SPECIMENOrdering Facility: [facility] Address: [address] [place] [address] Performed By: #### 5 7021-8 ####CERVANTES LABORATORYCLIA [id number] [address] CNPVeronica 09-18-2024 JOHNN Telephone ([employer]) RANDOLPH HUNTER ([id number]) 1950 F Date Time Provider Department 09/18/24 RAF CASEY During your visit today, we recorded the following information about you: Kevin Jain 09/18/2024 11:34 AM Signed Patient seen in [place] [facility] on 09/18/2024 in regards to left knee pain Dr. Soares is the provider pulmonary physician Would or another provider be willing to see patient in regards to their injury? Patient can be reached at [phone] Thank You! Allergies As of Date: 09/18/2024 Noted Allergy Reaction PHENERGAN VC (PROMETHAZINE-PHENYL* 005 1 - Mental Status Change DELETED: ADHESIVE 03/08/2022 2 - Rash Comments: Paper tape ADHESIVE TAPE-SILICONES 05/04/2023 16 - Unknown CIPROFLOXACIN 11/04/2010 2 - Rash Comments: Not hives. ERYTHROMYCIN 04/07/2005 9 - Itching Comments: throat KEFLEX (CEPHALEXIN) 04/18/2005 9 - Itching Comments: throat NAPROSYN (NAPROXEN) 04/18/2005 5 - Intolerance Comments: didn't work DELETED: paper tape [Other] 11/03/2011 5 - Intolerance Comments: removes skin PAROXETINE 05/26/2019 16 - Unknown PAXIL (PAROXETINE HCL) 04/10/2005 1 - Mental Status Change PENICILLINS 03/04/2011 4 - Hives Comments: " Dioxicillin" PROMETHAZINE 05/26/2019 16 - Unknown YTVLILB-YBP-PEK REDUCTASE INHIBIT*07/08/2018 17 - Myalgia DELETED: CHEESE 03/09/2022 6 - Diarrhea 8 - GI Upset Comments: Parmesan cheese and israeli cheese, per patient Date Reviewed: 09/18/2024 Reviewed by: Mone King, RN - Fully Assessed Reason for Visit: Appointment [186] Prescriptions as of 03/21/2025 - acetaminophen (TYLENOL) 500 mg tablet Take 2 tablets by mouth every 6 hours as needed for pain or fever (specify temp.). - benzonatate (TESSALON PERLE) 100 mg capsule Take 1 capsule by mouth three times a day as needed for cough. - gabapentin 100 mg tab Take 3 tablets by mouth three times a day for 30 days. - FLUoxetine (PROZAC) 20 mg capsule Take 1 capsule by mouth once daily. - hydrOXYzine HCl (ATARAX) 25 mg tablet Take 1 tablet by mouth two times a day. - miconazole 2 % powder Apply 1 application to affected area two times a day. - hydrOXYzine pamoate (VISTARIL) 25 mg capsule Take 25 mg by mouth three times a day as needed for anxiety. - albuterol (PROVENTIL) 2.5 mg /3 mL (0.083 %) nebulizer solution 3 mL as needed Inhalation every 6 hrs - hydrOXYchloroQUINE (PLAQUENIL) 200 mg tablet - mupirocin (BACTROBAN) 2 % ointment Apply to affected area once daily. APPLY TO AFFECTED AREA - prazosin (MINIPRESS) 1 mg cap 2 mg. - folic acid 1 mg tablet Take 1 tablet by mouth every afternoon. - Nystatin, Bulk, 10 billion unit powd Apply to affected area. - traZODone (DESYREL) 50 mg tablet Take 150 mg by mouth every evening. - metFORMIN ER (GLUCOPHAGE XR) 500 mg 24 hr tablet Take 500 mg by mouth twice daily. - levothyroxine (SYNTHROID) 150 mcg tablet Take 1 tablet by mouth once daily. Take on empty stomach. For thyroid - HYDROcodone-acetaminophen (NORCO) 5-325 mg per tablet Take 1 tablet by mouth every 6 hours as needed for pain for up to 30 days. - warfarin (COUMADIN) 5 mg tablet 7.5 mg Mon/Fri, 5 mg all other days or as directed - mirtazapine (REMERON) 30 mg tablet Take 1 tablet by mouth daily at bedtime. - nitroglycerin sublingual (NITROQUICK) 0.4 mg SL tablet Dissolve 1 tablet under the tongue every 5 minutes as needed for chest pain. FOR CHEST PAIN. IF NO RELIEF CALL 911 - ramipril (ALTACE) 5 mg capsule Take 1 capsule by mouth once daily. - metoprolol succinate ER (TOPROL XL) 100 mg Take 1 tablet by mouth once daily. - Syringe with Needle, Disp, (MONOJECT TB SAFETY SYRINGE) 1 mL 25 gauge x 5/8" Use as directed once a month. - blood sugar diagnostic (L99.com VERIO TEST STRIPS) test strip Test blood sugar(s) 3 times daily. Dx: Other DM Code E11.42 Insulin: Yes - ketoconazole (NIZORAL) 2 % cream Apply 1 application to affected area once daily. - Syringe with Needle, Safety 3 mL 23 gauge x 1" 1 Each as directed. Use one each with Vitamin B 12 injections weekly for 3 doses and then monthly. - fluticasone (FLONASE) 50 mcg/actuation nasal spray Use 2 Sprays in each nostril once daily. Rinse mouth after use. - Magnesium Oxide 500 mg tab Take 500 mg by mouth once daily. - melatonin 10 mg tab Take 1 tablet by mouth daily at bedtime. - aspirin, enteric coated (ASPIR-LOW) 81 mg EC tablet Take 1 tablet by mouth once daily. - MULTIVITAMIN ORAL Take by mouth. OTC One A Day Womens - Spirometers and Accessories gui Incentive spirometer. Deep breathe hourly while awake. - PT/INR test meter (COAGUCHEK XS PRO) misc Check Protime weekly. Dx: pulmonary embolism, V58.61 - COMPOUNDED PRESCRIPTION Hospital bed all electric with adjustable head and feet. 415.19; 343.8; 782.3; 787.91; V43.65 Problem List As Of Date 09/18/2024 Note (more content not included)... Normal [facility] CT KNEE WO IVCON LTon 2024 CT [facility] * * *Final Report* * * DATE OF EXAM: Sep 18 2024 10:31PM [facility] 0083 - CT KNEE WO IVCON LT [...] Small joint effusion. * Tricompartmental degenerative changes. Pattern Drafter: CEM Transcribe Date/Time: Sep 18 2024 11:34P Dictated by : STEPHANE GRIMES MD This examination was interpreted and the report reviewed and electronically signed by: STEPHANE GRIMES MD on Sep 18 2024 11:37PM EST [id number] Normal [facility] Comprehensive metabolic 2000 panelon 09-18-2024 Albumin [Mass/Vol] 3.2 g/dL Low 3.9-4.9 [facility] Comment on above: Order Comment: Speci men Type: BLOOD SPECIMENOrdering Facility: [facility] Address: [address] [place] [address] Performed By: #### 2 4323-8 ####XENIA LABORATORYCLIA [id number] [place] [address] [place] [facility] ALP [Catalytic activity/Vol] 42 U/L Normal 34-123 [facility] Comment on above: Order Comment: Speci men Type: BLOOD SPECIMENOrdering Facility: [facility] Address: [address] [place] [address] Performed By: #### 2 4323-8 ####XENIA LABORATORYCLIA [id number] [address] [place] ALT [Catalytic activity/Vol] 8 U/L Normal 7-38 [facility] Comment on above: Order Comment: Speci men Type: BLOOD SPECIMENOrdering Facility: [facility] Address: [address] [place] [address] Performed By: #### 2 4323-8 ####XENIA LABORATORYCLIA [id number] [place] [address] [place] Anion gap [Moles/Vol] 10 mmol/L Normal 8-15 [facility] Comment on above: Order Comment: Speci men Type: BLOOD SPECIMENOrdering Facility: [facility] Address: [address] [place] [address] Performed By: #### 2 4323-8 ####CERVANTES LABORATORYCLIA [id number] [place] [address] [place] AST [Catalytic activity/Vol] 19 U/L Normal 13-35 [facility] Comment on above: Order Comment: Speci men Type: BLOOD SPECIMENOrdering Facility: [facility] Address: [address] [place] [address] Performed By: #### 2 4323-8 ####CERVANTES LABORATORYCLIA [id number] [place] [address] [place] Bilirubin [Mass/Vol] 0.5 mg/dL Normal 0.2-1.3 [facility] Comment on above: Order Comment: Speci men Type: BLOOD SPECIMENOrdering Facility: [facility] Address: [address] [place] [address] Performed By: #### 2 4323-8 ####CERVANTES LABORATORYCLIA [id number] [place] [address] [place] Calcium [Mass/Vol] 9.1 mg/dL Normal 8.5-10.2 [facility] Comment on above: Order Comment: Speci men Type: BLOOD SPECIMENOrdering Facility: [facility] Address: [address] [place] [address] Performed By: #### 2 4323-8 ####CERVANTES LABORATORYCLIA [id number] [place] [address] [place] Chloride [Moles/Vol] 98 mmol/L Normal 98-107 [facility] Comment on above: Order Comment: Speci men Type: BLOOD SPECIMENOrdering Facility: [facility] Address: [address] [place] [address] Performed By: #### 2 4323-8 ####CERVANTES LABORATORYCLIA [id number] [place] [address] [place] CO2 [Moles/Vol] 28 mmol/L Normal 22-30 [facility] Comment on above: Order Comment: Speci men Type: BLOOD SPECIMENOrdering Facility: [facility] Address: [address] [place] [address] Performed By: #### 2 4323-8 ####CERVANTES LABORATORYCLIA [id number] [place] [address] [place] Creatinine [Mass/Vol] 0.80 mg/dL Normal 0.58-0.96 [facility] Comment on above: Order Comment: Suzanne garcia Type: BLOOD SPECIMENOrdering Facility: [facility] Address: [address] [place] [address] Performed By: #### 2 4323-8 ####XENIA LABORATORYCLIA [id number] [place] [id number] [facility] Creatinine and Glomerular filtration rate.predicted panel (S/P/Bld) 78 mL/min/1.73m??? Normal >=60 [facility] Comment on above: Order Comment: Suzanne garcia Type: BLOOD SPECIMENOrdering Facility: [facility] Address: [address] [place] [address] Result Comment: Winifred mated Glomerular Filtration Rate [...] actual GFR. Performed By: #### 2 4323-8 ####XENIA LABORATORYCLIA [id number] [place] [id number] [place] Glucose [Mass/Vol] 121 mg/dL High 74-99 [facility] Comment on above: Order Comment: Suzanne garcia Type: BLOOD SPECIMENOrdering Facility: [facility] Address: [address] [place] [address] Result Comment: The [place] Diabetes Association (ADA) provides guidance for cutoff [...] Standards of Medical Care in Diabetes 2016, [place] [employer] Association. Diabetes Care. 2016.39(Suppl 1). Performed By: #### 2 4323-8 ####CERVANTES LABORATORYCLIA [id number] [address] Potassium [Moles/Vol] 4.3 mmol/L Normal 3.7-5.1 [facility] Comment on above: Order Comment: Speci men Type: BLOOD SPECIMENOrdering Facility: [facility] Address: [address] [place] [address] Performed By: #### 2 4323-8 ####CERVANTES LABORATORYCLIA [id number] [address] Protein [Mass/Vol] 6.4 g/dL Normal 6.3-8.0 [facility] Comment on above: Order Comment: Speci men Type: BLOOD SPECIMENOrdering Facility: [facility] Address: [address] [place] [address] Performed By: #### 2 4323-8 ####CERVANTES LABORATORYCLIA [id number] [address] Sodium [Moles/Vol] 136 mmol/L Normal 136-144 [facility] Comment on above: Order Comment: Naeemi men Type: BLOOD SPECIMENOrdering Facility: [facility] Address: [address] [place] [address] Performed By: #### 2 4323-8 ####CERVANTES LABORATORYCLIA [id number] [address] [place] Urea nitrogen [Mass/Vol] 10 mg/dL Normal 7-21 [facility] Comment on above: Order Comment: Speci men Type: BLOOD SPECIMENOrdering Facility: [facility] Address: [address] [place] [address] Performed By: #### 2 4323-8 ####CERVANTES LABORATORYCLIA [id number] [address] [place] ED NOTEon 09-18-2024 ED NOTE HNO ID: [id number] Author: MONE KING RN Service: ? Author Type: Registered Nurse Type: ED Notes Filed: 09/18/2024 22:14 Note Text: Pt report given to Zaria (RN) [facility] ED NOTE HNO ID: [id number] Author: MONE KING RN Service: ? Author Type: Registered Nurse Type: ED Notes Filed: 09/18/2024 22:15 Note Text: IV attempted by this RN. Medic requested to bedside for ultrasound. [facility] ED NOTE HNO ID: [id number] Author: LIANNE FERNANDEZ, NAWAF Service: ? Author Type: Registered Nurse Type: ED Notes Filed: 09/18/2024 20:22 Note Text: Bed: ED-15 Expected date: Expected time: Means of arrival: Comments: [facility] ED NOTE HNO ID: [id number] Author: LIANNE FERNANDEZ, NAWAF Service: ? Author Type: Registered Nurse Type: ED Notes Filed: 09/18/2024 13:36 Note Text: Discharge instructions reviewed with patient via teachback. Pt verbalizes understanding. Pt awake and alert, respirations regular and unlabored. No further questions for this RN. Report given to [facility] ED NOTE HNO ID: [id number] Author: ZARIA ZAPATA RN Service: ? Author Type: Registered Nurse Type: ED Notes Filed: 09/18/2024 10:15 Note Text: Bed: ED-01 Expected date: Expected time: Means of arrival: [place] [facility] Comments: [facility] ED PROV NOTEon 09-18-2024 ED PROV NOTE HNO ID: [id number] Author: KRISTI POND DO Service: Emergency Medicine [...] Status Change Penicillins Hives Dioxicillin Promethazine Intolerance Khqrmxg-Odp-Tfb Red* Myalgia Cheese Diarrhea, GI Upset Parmesan cheese and israeli cheese, per patient Review of Systems Constitutional: [...] Left lower (more content not included)... Normal [facility] ED PROV NOTE HNO ID: [id number] Author: CLINTON GRAJEDA PA-C Service: ? Author Type: Physician Cash Applications Analyst Type: ED Provider Notes Filed: 09/18/2024 11:31 [...] Status Change Penicillins Hives Dioxicillin Promethazine Unknown Toixkez-Beq-Qky Red* Myalgia Cheese Diarrhea, GI Upset Parmesan cheese and israeli cheese, per patient Review of Systems Constitutional: [...] prior sen (more content not included)... Normal [facility] PT panel Coag (PPP)on 2024 INR Coag (PPP) [Relative time] 2.3 {INR} High 0.9-1.3 [facility] Comment on above: Order Comment: Speci men Type: BLOOD SPECIMENOrdering Facility: [facility] Address: [address] [place] [id number] Result Comment: Kaycee min K Antagonist (VKA) Therapeutic Range: INR 2 to 3 (Target INR of 2.5) Note: For patients treated with VKA drugs, such as warfarin, the [place] [employer]icians 2012 Guideline recommends [...] Chest 2012, 141:7S-47S Roshni CASTILLO et al. [facility] 2017, 70: 252-289 Performed By: #### 3 4528-0 ####XENIA LABORATORYCLIA [id number] [place] [address] [place] PT Coag (PPP) [Time] 23.8 s High 9.7-13.0 [facility] Comment on above: Order Comment: Speci men Type: BLOOD SPECIMENOrdering Facility: [facility] Address: [address] [place] [id number] Performed By: #### 3 4528-0 ####XENIA LABORATORYCLIA [id number] [place] [id number] [place] XR ANKLE 3V [...] tissue swelling of the left lower extremity. Pattern Drafter: PSCB Transcribe Date/Time: Sep 18 2024 11:41P Dictated by : STEPHANE GRIMES MD This examination was interpreted and the report reviewed and electronically signed by: STEPHANE GRIMES MD on Sep 18 2024 11:44PM EST [id number] [facility] XR HIP 3V PELV+ AP/LAT LTon [...] tissue swelling of the left lower extremity. Pattern Drafter: PSC Transcribe Date/Time: Sep 18 2024 11:41P Dictated by : STEPHANE GRIMES MD This examination was interpreted and the report reviewed and electronically signed by: STEPHANE GRIMES MD on Sep 18 2024 11:44PM EST [id number] [facility] XR KNEE 4V AP/LAT/OBLS LTon 09-18-2024 [...] effusion. Vascular calcifications. IMPRESSION: No acute abnormality Pattern Drafter: [facility] Transcribe Date/Time: Sep 18 2024 10:47A Dictated by : WILBERT WALKER MD This examination was interpreted and the report reviewed and electronically signed by: WILBERT WALKER MD on Sep 18 2024 10:48AM EST [id number] [facility] CNOVon 08-05-2024 CNOV Office Visit (PSYLWM ) RANDOLPH HUNTER ([id number]) 1950 F Date Time Provider Department 08/05/24 11:00 AM GILMER COTTON PSYLWM During your visit today, we recorded the following information about you: Gilmer Cotton, PhD 08/05/2024 12:29 PM Signed [facility] Progress Note Randolph Hunter 08/05/2024 [id number] PROVIDER: Gilmer Cotton, PhD CPT Code: Time: [...] directed once a month. blood sugar diagnostic (FieldooUCH VERIO TEST STRIPS) test strip Test blood [...] breathe hourly while awake. PT/INR test meter (LT TechnologiesCHEK XS PRO) misc Check Protime weekly. Dx: pulmonary embolism, V58.61 COMPOUNDED PRESCRIPTION Hospital bed all electric with adjustable head and feet. 415.19; 343.8; 782.3; 787.91; V43.65 No current facility-administered medications for this visit. Psychiatric Medication Issues: see med record DIAGNOSIS: [place] I: Depress (more content not included)... Normal [facility] ED Nursing Noteon 07-10-2024 ED Nursing Note Pt resting quietly i n bed with blanket over face. Respirations even and non labored. No coughing noted at this time. Await transport by [facility]. Normal [facility] ED Nursing Note Dr. Jha at bedside. Normal [facility] ED Nursing Noteon 07-09-[address] Jha to bedside . Pt given water. Normal [facility] ED Provider Noteon ED Provider Note [...] TABLET Place under the tongue. NYSTATIN (MYCOSTATIN) 748511 UNIT/GM POWDER Apply topically 2 times daily. [...] Low Risk (01/02/2020) Received from [facility] Overall Financial Resource Strain (CARDIA) Difficulty of Paying Living Expenses: Not very hard Food Insecurity: Food Insecurity Present (01/02/2020) Received from [facility] Hunger Vital Sign Worried About Running Out of Food in the Last Year: Sometimes true Ran Out of Food in the Last Year: Never true Transportation Needs: Unmet Transportation Needs (01/02/2020) Received from [facility] (more content not included)... Normal [facility] XR Chest Single viewon 07-09 1. No acute consolidation. Report Dictated on Electronically Signed By: Velasquez Nova MD Electronically Signed Date/Time: 07/09/2024 11:45 PM [facility] Patient Name: RANDOLPH HUNTER : [...] change again noted in the thoracic spine. [facility] Velasquez Nova MD - 07/09/2024 Patient Name: RANDOLPH HUNTER : 1950 [id number] Exam Date/Time: 07/09/2024 23:26 Procedure: XR CHEST [...] Electronically Signed Date/Time: 07/09/2024 11:45 PM EST [facility] Study observation (narrative) [facility] XR Chest Single viewOrdered By: Velasquez Nova on 07-09-2024 [facility] Work Phone: CNOVon 05-02-2024 CNOV Office Visit (PSYLWM ) RANDOLPH HUNTER ([id number]) 1950 F Date Time Provider Department 05/02/24 11:00 AM GILMER COTTON PSYLWM During your visit today, we recorded the following information about you: Gilmer Cotton, PhD 05/02/2024 12:11 PM Signed [facility] Department Progress Note Randolph Abiodun Joahn 05/02/2024 [id number] PROVIDER: Gilmer Cotton, PhD CPT Code: Time: [...] directed once a month. blood sugar diagnostic (L99.com VERIO TEST STRIPS) test strip Test blood [...] Issues: No change from previous appointment DIAGNOSIS: [place] I: Depressive Disorder recurrent Morbidly Obese CP [place] II : Deferred [place] III : See medical history [place] IV: Health (more content not included)... Normal [facility] PATINSon 02-10-2024 PATINS Ordered treatment co mpleted and patient is healed. Patient discharged without any issues. All questions answered. Call the clinic if your wound reopens or a new wound appears at [phone]. Edema/Swelling: Avoid standing for long periouds of [...] a day to promote wound healing Normal [facility] Progress Noteon 02-10-2024 Progress Note Assessments [...] 5 to get score 0 [] Nutritional Assessment/Counseling/Interv ention 10 [] Lower Extremity Assessment (monofilament, tuning [...] Test Results/Process Orders 10 [] Staff telephones [facility], Nursing Homes/Clarify Orders 10 [] [...] Level 5 (160 or more Points) [facility] Progress Note Subjective Patient ID: Randolph Hunter [...] prn Pt agrees with plan . Normal [facility] No Panel Informationon 01-26 Isaac Chicas DO 01/27/2024 1:59 PM Debridement Wound/Incision 01/20/24 Diabetic Ulcer Foot Left Performed by: Isaac Chicas DO Authorized by: Isaac Chicas, DO Consent Consent obtained? verbal Consent given by: patient Risks discussed? procedural risks discussed Immediately prior to the procedure a time out was called and the performing provider verified the correct patient, procedure, equipment, learning support services director, and site/side marked as required. Debridement Details [...] Response to treatment: procedure was tolerated well [facility] PATINSon 01-27-2024 PATINS Follow-up Appointmen ts: Return Appointment in 1 week. Call [place] wound center at [phone], [facility] at [phone], or [facility] Wound center at [phone]. Edema/Swelling: Avoid standing for long periouds of [...] the wound and secure with tape. Normal [facility] No Panel Informationon 01-19 Isaac Chicas DO 01/20/2024 3:54 PM Debridement Wound/Incision 01/20/24 Pressure Injury Foot Left Performed by: Isaac Chicas DO Authorized by: Isaac Chicas, DO Consent Consent obtained? verbal Consent given by: patient Risks discussed? procedural risks discussed Immediately prior to the procedure a time out was called and the performing provider verified the correct patient, procedure, equipment, learning support services director, and site/side marked as required. Debridement Details [...] Response to treatment: procedure was tolerated well [facility] PATINSon 01-20-2024 PATINS Follow-up Appointmen ts: Return Appointment in 1 week. Call [place] wound center at [phone], [facility] at [phone], or [facility] Wound center at [phone]. Edema/Swelling: Avoid standing for long periouds of [...] the wound and secure with tape. Normal [facility] Progress Noteon 01-20-2024 Progress Note [facility]STOM[facility] [address] [facility] [address] Loc: [phone] Wound Care Visit - New Patient Progress [...] ti,es a day, Disp: , Rfl: HYDROcodone-acetaminophen (Trilla) 5-325 MG tablet, Take 1 tablet by [...] the tongue., Disp: , Rfl: nystatin (Mycostatin) 449841 UNIT/GM powder, Apply topically 2 times daily., [...] Consent given (more content not included)... Normal [facility] Progress Note Assessments Nursing Assessment/Reassessment Score (check [...] Test Results/Process Orders 10 [x] Staff telephones [facility], Nursing Homes/Clarify Orders 10 [] [...] Level 5 (160 or more Points) Normal [facility] ED Nursing Noteon 12-16-2023 ED Nursing Note Patient wheeled out ED for transport to residence. discharge instructions sent to facility with patient. No further questions. Respirations even and non labored. No acute distress. A&O x4. Gifty Cornell RN 12/16/23 0015 Normal [facility] BASIC METABOLIC PANELon 11-21 Anion gap [Moles/Vol] 4 mmol/L Normal 3-13 [facility] Comment on above: Performed By: #### L AB149, LAB15 ####Supervisor Blood Donor Recruiters: PING TOWNSEND ([phone])[facility] ERIC RITTMAN (SWRLAB)[address] [place] [address] [place] Calcium [Mass/Vol] 8.7 mg/dL Normal 8.4-10.4 [facility] Comment on above: Performed By: #### L AB149, LAB15 ####Supervisor Blood Donor Recruiters: PING TOWNSEND ([phone])[facility] CHATTERJEE RITTMAN (SWRLAB)[address] [place] [address] [place] Chloride [Moles/Vol] 99 mmol/L Normal 98-107 [facility] Comment on above: Performed By: #### L AB149, LAB15 ####Supervisor Blood Donor Recruiters: PING TOWNSEND ([phone])[facility]ellen LANGSTONERIC RITTMAN (SWRLAB)[address] [place] [address] [place] CO2 [Moles/Vol] 32 mmol/L High 22-30 [facility] Comment on above: Performed By: #### L AB149, LAB15 ####Supervisor Blood Donor Recruiters: PING TOWNSEND ([phone])[facility] CHATTERJEE RITTMAN (SWRLAB)[address] [place] [address] [place] Creatinine [Mass/Vol] 1.03 mg/dL Normal 0.52-1.04 [facility] Comment on above: Performed By: #### L AB149, LAB15 ####Supervisor Blood Donor Recruiters: PING TOWNSEND ([phone])[facility] CHATTERJEE RITTMAN (SWRLAB)[address] [place] [address] [place] GLOMERULAR FILTRATION RATE ML/MIN/1.73 SQ M.PREDICTED 57.9 mL/min/1.73m*2 Low >60.0 [facility] Comment on above: Result Comment: Calc ulation based on the Chronic Kidney Disease Epidemiology Collaboration (CKD-EPI) equation refit without adjustment for race Performed By: #### L AB149, LAB15 ####Supervisor Blood Donor Recruiters: PING TOWNSEND ([phone])[facility] CHATTERJEE RITTMAN (SWRLAB)[address] [place] [address] [place] Glucose [Mass/Vol] 104 mg/dL High 70-100 [facility] Comment on above: Performed By: #### L AB149, LAB15 ####Supervisor Blood Donor Recruiters: PING TOWNSEND ([phone])[facility] CHATTERJEE RITTMAN (SWRLAB)[address] [place] [address] Potassium [Moles/Vol] 4.5 mmol/L Normal 3.5-5.1 [facility] Comment on above: Performed By: #### L AB149, LAB15 ####Supervisor Blood Donor Recruiters: PING TOWNSEND ([phone])[facility] CHATTERJEE RITTMAN (SWRLAB)[address] [place] [address] Sodium [Moles/Vol] 135 mmol/L Normal 135-145 [facility] Comment on above: Performed By: #### L AB149, LAB15 ####Supervisor Blood Donor Recruiters: PING TOWNSEND ([phone])[facility] CHATTERJEE RITTMAN (SWRLAB)[address] [place] [address] Urea nitrogen [Mass/Vol] 12 mg/dL Normal 7-17 [facility] Comment on above: Performed By: #### L AB149, LAB15 ####Supervisor Blood Donor Recruiters: PING TOWNSEND ([phone])[facility] TOL[facility] ROSSTMAN (SWRLAB)[address] [place] [address] BLOOD CULTUREon 12-15-2023 Bacteria identified Cx Nom (Bld) BLOOD CULTURE Reference No growth at 5 days ORDER COMMENTS: Blood Collection Site: Right Antecubital [ S = SUSCEPTIBLE R = RESISTANT I = INTERMEDIATE S-DD = Susceptible-dose dependent NS = Non-susceptible NO = No Interpretation ] [facility] Comment on above: Performed By: #### L AB462 ####Supervisor Blood Donor Recruiters: PING TOWNSEND ([phone])[facility] (SAC[facility] Bacteria identified Cx Nom (Bld) BLOOD CULTURE Reference No growth at 5 days ORDER COMMENTS: Blood Collection Site: Left Antecubital [ S = SUSCEPTIBLE R = RESISTANT I = INTERMEDIATE S-DD = Susceptible-dose dependent NS = Non-susceptible NO = No Interpretation ] [facility] Comment on above: Performed By: #### L AB462 ####Supervisor Blood Donor Recruiters: PING TOWNSEND ([phone])[facility] (SACLAB)[address] [place] [address] Basic metabolic 1998 panelon 12-15-2023 Anion gap [Moles/Vol] 4 mmol/L 3 - 13 mmol/L [facility] Calcium [Mass/Vol] 8.7 mg/dL 8.4 - 10. 4 mg/dL [facility] Chloride [Moles/Vol] 99 mmol/L 98 - 10 7 mmol/L [facility] CO2 [Moles/Vol] 32 mmol/L High 22 - 30 mmol/L [facility] Creatinine [Mass/Vol] 1.03 mg/dL 0.52 - 1.04 mg/dL [facility] GFR/1.73 sq M.predicted MDRD (S/P/Bld) [Vol rate/Area] 57.9 mL/min/{1.73_m2} Low - PINF [facility] Comment on above: Calculation based on the Chronic Kidney Disease Epidemiology Collaboration (CKD-EPI) equation refit without adjustment for race Glucose [Mass/Vol] 104 mg/dL High 70 - 100 mg/dL [facility] Potassium [Moles/Vol] 4.5 mmol/L 3.5 - 5.1 mmol/L [facility] Sodium [Moles/Vol] 135 mmol/L 135 - 145 mmol/L [facility] Urea nitrogen [Mass/Vol] 12 mg/dL 7 - 17 mg/dL [facility] C-REACTIVE PROTEINon 024 CRP [Mass/Vol] 57.4 mg/L High <10.0 [facility] Comment on above: Performed By: #### L [id number], [id number] ####Supervisor Blood Donor Recruiters: PING TOWNSEND ([phone])[facility] (SWRLAB)[address] [place] [address] CBC W Auto Differential pane l (Bld)on 12-15-2023 Basophils (Bld) [#/Vol] 0.0 10*3/uL 0.0 - 0.2 10*3/uL [facility] Basophils/100 WBC (Bld) 0.2 % 0.0 - 2.0 % [facility] Eosinophils (Bld) [#/Vol] 0.1 10*3/uL 0.0 - 0.5 10*3/uL [facility] Eosinophils/100 WBC (Bld) 0.7 % 0.0 - 6.0 % [facility] Erythrocyte distribution width (RBC) [Ratio] 12.6 % 11.5 - 15.0 % [facility] Hematocrit (Bld) [Volume fraction] 38.3 % 35.0 - 47.0 % [facility] Hemoglobin (Bld) [Mass/Vol] 13.1 g/dL 11.7 - 16.0 g/dL [facility] Immature granulocytes (Bld) [#/Vol] 0.0 10*3/uL NINF - 0.1 10*3/uL [facility] Immature granulocytes/100 WBC (Bld) 0.2 % 0.0 - 2.0 % [facility] Interpretation and review of laboratory results Abnormal [facility] IPF 3 [facility] Lymphocytes (Bld) [#/Vol] 0.9 10*3/uL Low 1.0 - 4.3 10*3/uL [facility] Lymphocytes/100 WBC (Bld) 11.2 % Low 15.0 - 45.0 % [facility] MCH (RBC) [Entitic mass] 31.2 pg 26.0 - 34.0 pg [facility] MCHC (RBC) [Mass/Vol] 34.2 % 30.5 - 36.0 % [facility] MCV (RBC) [Entitic vol] 91.2 fL 77.0 - 99.0 fL [facility] Monocytes (Bld) [#/Vol] 0.5 10*3/uL 0.0 - 0.9 10*3/uL [facility] Monocytes/100 WBC (Bld) 5.6 % 5.0 - 13.0 % [facility] Neutrophils (Bld) [#/Vol] 6.8 10*3/uL 1.8 - 7.5 10*3/uL [facility] Neutrophils/100 WBC (Bld) 82.1 % High 38.0 - 82.0 % [facility] Nucleated RBC/100 WBC (Bld) [Ratio] 0.0 % [facility] Platelet mean volume (Bld) [Entitic vol] 10.1 fL 9.0 - 12.7 fL [facility] Platelets (Bld) [#/Vol] 149 10*3/uL 140 - 440 10*3/uL [facility] RBC (Bld) [#/Vol] 4.20 10*6/uL 3.80 - 5.20 10*6/uL [facility] WBC (Bld) [#/Vol] 8.3 10*3/uL 3.6 - 10.7 10*3/uL [facility] CBC WITH AUTO DIFFERENTIALon 12-15-2023 Basophils (Bld) [#/Vol] 0.0 10*3/uL Normal 0.0-0.2 [facility] Comment on above: Performed By: #### L [id number], [id number] ####Supervisor Blood Donor Recruiters: PING TOWNSEND ([phone])[facility] (SWRLAB)[address] [place] [address] [place] Basophils/100 WBC (Bld) 0.2 % Normal 0.0-2.0 [facility] Comment on above: Performed By: #### Abiodun [id number], [id number] ####Supervisor Blood Donor Recruiters: PING TOWNSEND ([phone])[facility] (SWRLAB)[address] [place] [address] [place] Eosinophils (Bld) [#/Vol] 0.1 10*3/uL Normal 0.0-0.5 [facility] Comment on above: Performed By: #### L [id number], [id number] ####Supervisor Blood Donor Recruiters: PING TOWNSEND ([phone])[facility] (SWRLAB)[address] [place] [address] [place] Eosinophils/100 WBC (Bld) 0.7 % Normal 0.0-6.0 [facility] Comment on above: Performed By: #### L [id number], [id number] ####Supervisor Blood Donor Recruiters: PING TOWNSEND ([phone])[facility] (SWRLAB)[address] [place] [address] Erythrocyte distribution width (RBC) [Ratio] 12.6 % Normal 11.5-15.0 [facility] Comment on above: Performed By: #### Abiodun [id number], [id number] ####Supervisor Blood Donor Recruiters: PING TOWNSEND ([phone])[facility] CHATTERJEE [facility] (SWRLAB)[address] [place] [address] Hematocrit (Bld) [Volume fraction] 38.3 % Normal 35.0-47.0 [facility] Comment on above: Performed By: #### Abiodun [id number], [id number] ####Supervisor Blood Donor Recruiters: PING TOWNSEND ([phone])[facility] CHATTERJEE R[facility]TMAN (SWRLAB)[address] [place] [address] Hemoglobin (Bld) [Mass/Vol] 13.1 g/dL Normal 11.7-16.0 [facility] Comment on above: Performed By: #### Abiodun [id number], [id number] ####Supervisor Blood Donor Recruiters: PING TOWNSEND ([phone])[facility] CHATTERJEE [facility] (SWRLAB)[address] [place] [address] IMMATURE GRANS % 0.2 % Normal 0.0-2.0 [facility] Comment on above: Performed By: #### Abiodun [id number], [id number] ####Supervisor Blood Donor Recruiters: PING TOWNSEND ([phone])[facility] CHATTERJEE [facility] (SWRLAB)[address] [place] [address] IMMATURE GRANS ABSOLUTE 0.0 10*3/uL Normal <0.1 [facility] Comment on above: Performed By: #### Abiodun [id number], [id number] ####Supervisor Blood Donor Recruiters: PING TOWNSEND ([phone])[facility] CHATTERJEE [facility] (SWRLAB)[address] [place] [address] IPF 3 Normal [facility] Comment on above: Performed By: #### Abiodun [id number], [id number] ####Supervisor Blood Donor Recruiters: PING TOWNSEND ([phone])[facility]ATTERJEE [facility] (SWRLAB)[address] [place] [address] Lymphocytes (Bld) [#/Vol] 0.9 10*3/uL Low 1.0-4.3 [facility] Comment on above: Performed By: #### Abiodun [id number], [id number] ####Supervisor Blood Donor Recruiters: PING TOWNSEND ([phone])FIONA CHATTERJEE [facility]TM[employer] (SWRLAB)[address] [place] [address] Lymphocytes/100 WBC (Bld) 11.2 % Low 15.0-45.0 [facility] Comment on above: Performed By: #### Abiodun [id number], [id number] ####Supervisor Blood Donor Recruiters: PING TOWNSEND ([phone])[facility] CHATTERJEE [facility] (SWRLAB)[address] [place] [address] MCH (RBC) [Entitic mass] 31.2 pg Normal 26.0-34.0 [facility] Comment on above: Performed By: #### Abiodun [id number], [id number] ####Supervisor Blood Donor Recruiters: PING TOWNSEND ([phone])[facility] CHATTERJEE [facility] (SWRLAB)[address] [place] [address] MCHC 34.2 % Normal 30.5-36.0 [facility] Comment on above: Performed By: #### Abiodun [id number], [id number] ####Supervisor Blood Donor Recruiters: PING TOWNSEND ([phone])[facility] CHATTERJEE [facility] (SWRLAB)[address] [place] [address] MCV (RBC) [Entitic vol] 91.2 fL Normal 77.0-99.0 [facility] Comment on above: Performed By: #### Abiodun AB322, [id number] ####Supervisor Blood Donor Recruiters: PING TOWNSEND ([phone])[facility] CHATTERJEE [facility] (SWRLAB)[address] [place] [address] Monocytes (Bld) [#/Vol] 0.5 10*3/uL Normal 0.0-0.9 [facility] Comment on above: Performed By: #### Abiodun AB322, [id number] ####Supervisor Blood Donor Recruiters: PING TOWNSEND ([phone])FIONA CHATTERJEE R[facility]TMAN (SWRLAB)[address] [place] [address] [place] Monocytes/100 WBC (Bld) 5.6 % Normal 5.0-13.0 [facility] Comment on above: Performed By: #### L AB322, [id number] ####Supervisor Blood Donor Recruiters: PING TOWNSEND ([phone])[facility] CHATTERJEE [facility] (SWRLAB)[address] [place] [address] [place] NEUTROPHILS ABSOLUTE 6.8 10*3/uL Normal 1.8-7.5 [facility] Comment on above: Performed By: #### L AB322, [id number] ####Supervisor Blood Donor Recruiters: PING TOWNSEND ([phone])[facility] CHATTERJEE [facility] (SWRLAB)[address] [place] [address] [place] Neutrophils/100 WBC (Bld) 82.1 % High 38.0-82.0 [facility] Comment on above: Performed By: #### Abiodun AB322, [id number] ####Supervisor Blood Donor Recruiters: PING TOWNSEND ([phone])[facility] CHATTERJEE [facility] (SWRLAB)[address] [place] [address] [place] NRBC 0.0 /100 WBCs Normal 0.0-2.0 [facility] Comment on above: Performed By: #### L AB322, [id number] ####Supervisor Blood Donor Recruiters: PING TOWNSEND ([phone])[facility] CH[facility]TERJEE [facility] (SWRLAB)[address] [place] [address] [place] Platelet mean volume (Bld) [Entitic vol] 10.1 fL Normal 9.0-12.7 [facility] Comment on above: Performed By: #### L AB322, [id number] ####Supervisor Blood Donor Recruiters: PING TOWNSEND ([phone])[facility] CH[facility]TERJEE [facility] (SWRLAB)[address] [place] [address] [place] Platelets (Bld) [#/Vol] 149 10*3/uL Normal 140-440 [facility] Comment on above: Performed By: #### L AB322, [id number] ####Supervisor Blood Donor Recruiters: PING TOWNSEND ([phone])[facility] ROSSTMAN (SWRLAB)[address] [place] [address] RBC (Bld) [#/Vol] 4.20 10*6/uL Normal 3.80-5.20 [facility] Comment on above: Performed By: #### L AB322, [id number] ####Supervisor Blood Donor Recruiters: PING TOWNSEND ([phone])[facility] CH[facility]TERJEE [facility] (SWRLAB)[address] [place] [address] WBC (Bld) [#/Vol] 8.3 10*3/uL Normal 3.6-10.7 [facility] Comment on above: Performed By: #### L AB322, [id number] ####Supervisor Blood Donor Recruiters: PING TOWNSEND ([phone])[facility] SHAHAN (SWRLAB)[address] [place] [address] ED Nursing Noteon 12-15-2023 ED Nursing Note Patient to room 7 vi a [facility] for c/o a left foot ulcer, lower leg erythema, and a headache. Patient reports she has had her foot ulcer for a couple of months. V/S obtained, call light within reach. Normal [facility] ED Provider Noteon ED Provider Note [...] Low Risk (01/02/2020) Received from [facility] Overall Financial Resource Strain (CARDIA) Difficulty of Paying Living Expenses: Not very hard Food Insecurity: Food Insecurity Present (01/02/2020) Received from [facility] Hunger Vital Sign Worried About Running Out of Food in the Last Year: Sometimes true Ran Out of Food in the Last Year: Never true Transportation Needs: Unmet Transportation Needs (01/02/2020) Received from [facility] PRAPARE - Transportation Lack of Transportation (Medical): Yes Lack of Transportation (Non-Medical): Yes Physical Activity: Inactive (01/02/2020) Received from [facility] Exercise Vital Sign Days of Exercise per Week: 0 days Minutes of Exercise per Session: 0 min Stress: Stress Concern Present (01/02/2020) Received from [facility] [employer] [place] [facility] [employer] [facility] - Occupational Stress Questionnaire Feeling of Stress : Rather much Social Connections: Moderately Isolated (01/02/2020) Received from [facility] Social Connection and Isolatio (more content not included)... Normal [facility] ED Provider Note This patient was [...] condition. Karen Gallardo MD 12/15/23 193 Normal [facility] ESR (Bld) [Velocity]Ordered By: Lexi Arce on 12-15-2023 Interpretation and review of laboratory results Normal [facility] Laboratory - Chemistry and C hemistry - challengeon 12-15-2023 CRP [Mass/Vol] 57.4 mg/L High NINF - 10.0 mg/L [facility] Laboratory - Hematology and Cell countsOrdered By: Lexi Arce on 12-15-2023 ESR (Bld) [Velocity] 16 mm/h [facility] No Panel Informationon 12-14 Interpretation and review of laboratory results Abnormal [facility] SEDIMENTATION RATE, AUTOMATE Don 12-15-2023 SEDIMENTATION RATE, ERYTHROCYTE 16 mm/hr Normal 0-20 [facility] Comment on above: Performed By: #### L [id number], [id number] ####Supervisor Blood Donor Recruiters: PING TOWNSEND ([phone])[facility] (SW[facility])[address] [place] [address] XR Foot - left 3 Viewson No obvious acute osteomyelitis. Report Dictated on Electronically Signed By: Gloria Darnell MD Electronically Signed Date/Time: 12/15/2023 7:01 PM T [facility] [employer] Patient Name: RANDOLPH HUNTER : 1950 [...] of the forefoot. Diffuse vascular calcification present. [facility] Gloria Darnell MD - 12/15/2023 Patient Name: [...] Electronically Signed Date/Time: 12/15/2023 7:01 PM EDT [facility] Radiology Study observation (narrative) [facility] XR Foot - left 3 ViewsOrdere d By: Gloria Darnell on 12-15-2023 [facility] Work Phone: ED Nursing Noteon 07-20-2023 ED Nursing Note Physician's arrived; pt removed from urine collection device and pts own attends placed on pt per her request. Pts belongings in bag at bedside. Report to Physician's. Veronika Bae RN 07/20/23 08 Normal [facility] ED Nursing Note Physician's Ambulanc e arrived with an ambulette/wheelchair van. Chasidy MCCRACKEN spoke with Physician's to inform them that the pt is non ambulatory and needed a stretcher. Physician's states they will have a stretcher here "within the hour." Veronika Bae RN 07/20/23 0717 [facility] ED Nursing Note Patient pressed call light to request pain medication. States pain is in shoulders and down the back from laying on the tables. notified Gifty Cornell RN 07/20/23 0044 Normal [facility] CT CERVICAL SPINE WO IV CONT Teresa 07-19-2023 CT CERVICAL SPINE WO IV CONTRAST Patient Name: RANDOLPH HUNTER : 1950 [facility]#: [id number] Exam Date/Time: 07/19/2023 22:56 Procedure: CT CERVICAL SPINE WO IV CONTRAST Ordering Provider: ANNA DOUGLAS Reason For Exam: cervical spine pain after fall. fails fijian CT CERVICAL SPINE: CLINICAL INDICATION: cervical spine pain after fall. fails fijian TECHNIQUE: Transaxial sequence through the cervical spine. [...] Signed Date/Time: 07/19/2023 11:18 PM EST [facility] CT Cervical spine WO contras ton 07-19-2023 No acute cervical sp ine fracture. Multilevel cervical spondylosis. Report Dictated on Electronically Signed By: Albina Newton MD Electronically Signed Date/Time: 07/19/2023 11:18 PM [facility] Patient Name: RANDOLPH HUNTER : 1950 Exam Date/Time: 07/19/2023 22:56 Procedure: CT CERVICAL SPINE WO IV CONTRAST Ordering Provider: ANNA DOUGLAS Reason For Exam: cervical spine pain after fall. fails fijian CT CERVICAL SPINE: CLINICAL INDICATION: cervical spine pain after fall. fails fijian TECHNIQUE: Transaxial sequence through the cervical spine. [...] submandibular gland. Other: Lung apices are unremarkable. [facility] Albina Newton M D - 07/19/2023 Patient Name: RANDOLPH HUNTER : 1950 Exam Date/Time: 07/19/2023 22:56 Procedure: CT CERVICAL SPINE WO IV CONTRAST Ordering Provider: ANNA DOUGLAS Reason For Exam: cervical spine pain after fall. fails fijian CT CERVICAL SPINE: CLINICAL INDICATION: cervical spine pain after fall. fails fijian TECHNIQUE: Transaxial sequence through the cervical spine. [...] Electronically Signed Date/Time: 07/19/2023 11:18 PM EST [facility] Radiology Study observation (narrative) [facility] Cervical spine WO contras tOrdered By: Albina Newton on 07-19-2023 [facility] Work Phone: CT HEAD WO IV CONTRASTon CT HEAD WO IV CONTRAST Patient Name: RANDOLPH HUNTER : 1950 [id number] Exam Date/Time: 07/19/2023 22:58 Procedure: CT HEAD [...] Electronically Signed Date/Time: 07/19/2023 11:02 PM EST [facility] CT Head WO contraston 2023 No acute intracrania l abnormality. Mild diffuse cortical volume loss. Report Dictated on Electronically Signed By: Albina Newton MD Electronically Signed Date/Time: 07/19/2023 11:02 PM [facility] Patient Name: RANDOLPH HUNTER : [...] Orbits: Normal Calvarium and skull base: Normal [facility] Albina Newton M D - 07/19/2023 [...] Electronically Signed Date/Time: 07/19/2023 11:02 PM EST [facility] Radiology Study observation (narrative) [facility] CT Head WO contrastOrdered B y: Albina Newton on 07-19-2023 [facility] Work Phone: CT PELVIS WO IV CONTRASTon 0 07-19-2023 CT PELVIS WO IV CONTRAST Patient Name: RANDOLPH HUNTER : 1950 [id number] Exam Date/Time: 07/19/2023 22:57 Procedure: CT PELVIS [...] Electronically Signed Date/Time: 07/19/2023 11:27 PM EST [facility] CT Pelvis WO contraston 06-23 No acute fracture. Nonacute findings, as above. Report Dictated on Electronically Signed By: Albina Newton MD Electronically Signed Date/Time: 07/19/2023 11:27 PM [facility] Patient Name: RANDOLPH HUNTER : [...] No sizable hematoma in the soft tissues. [facility] Albina Newton M D - 07/19/2023 Patient Name: RANDOLPH HUNTER : 1950 Exam Date/Time: 07/19/2023 22:57 Procedure: CT PELVIS WO IV CONTRAST Ordering Provider: ANNA, , CUBA Reason For Exam: fall, landed on right [...] Electronically Signed Date/Time: 07/19/2023 11:27 PM EST [facility] Radiology Study observation (narrative) [facility] CT Pelvis WO contrastOrdered By: Albina Newton on 07-19-2023 [facility] Work Phone: ED Nursing Noteon 07-19-2023 ED Nursing Note Report given to Shubham lopes RN & Chasidy RN. Patient still in radiology. Pia Caraballo RN 07/19/23 8024 [facility] ED Nursing Note Dispo per imaging :) Chasidy Fernandez RN 07/19/23 3693 [facility] ED Nursing Note Pt placed up for dis charge. No discharge paperwork complete at this time. Once orders are complete and discharge paperwork complete by ER DR Pt will be discharged. Chasidy Fernandez RN 07/19/23 0871 [facility] ED Nursing Note This RN requested or ders from ER DR. Chasidy Fernandez RN 07/19/232025 [facility] ED Nursing Note Patient is here for right hip pain. She was transferring to the toilet when she fell. She resides at [address] She currently is working with a physical therapist and is in a wheelchair. Patient hooked up to [employer] due to incontinence. She also has right knee bruising that is from her repeatedly hitting it on her wheelchair. She denies hitting her head or neck during fall. She is on coumadin. Call light within reach. [facility] ED Provider Noteon ED Provider Note [...] No family history. She lives in a residential facility and is on Coumadin as she [...] Source Patient (more content not included)... [facility] No Panel Informationon 07-19 1. Right knee arthro plasty in adequate alignment 2. Unremarkable right hip 3. Osteoarthritis of the left knee Report Dictated on Electronically Signed By: Phan Sepulveda MD Electronically Signed Date/Time: 07/19/2023 11:53 PM [facility] No Panel InformationOrdered By: Phan Sepulveda on 07-19-2023 [facility] Work Phone: XR Femur - right 2 Viewson 0 07-19-2023 Patient Name: RANDOLPH HUNTER : 1950 [id number] Exam Date/Time: 07/19/2023 23:49 Procedure: XR FEMUR [...] as well as the popliteal fossa. [facility] Phan Sepulveda MD - 07/19/2023 [...] Electronically Signed Date/Time: 07/19/2023 11:53 PM EST [facility] Radiology Study observation (narrative) [facility] XR Knee - left 3 Viewson Patient [...] as well as the popliteal fossa. [facility] Phan Sepulveda MD - 07/19/2023 [...] Electronically Signed Date/Time: 07/19/2023 11:53 PM EST [facility] Radiology Study observation (narrative) [facility] XR Knee - right 3 Viewson [...] calcifications as well as the popliteal fossa. [facility] Phan Sepulveda MD - 07/19/2023 Patient [...] Electronically Signed Date/Time: 07/19/2023 11:53 PM EST [facility] Radiology Study observation (narrative) [facility] ECG 12-LEADon 09-07-2022 ECG 12-LEAD IMPRESSION: Sinus rhythm Borderline left axis deviation Probable lateral infarct, old Abnrm R prog, consider ASMI or lead placement Electronically Signed On 09-07-2022 11:08:52 EDT by Sai Melchor [facility] ABO and Rh group Confirm Nom (Bld)on 09-06-2022 ABO group Nom (Bld) A [facility] D Ag Ql (RBC) Negative [facility] Basic metabolic 1998 panelon 09-06-2022 Anion gap [Moles/Vol] 5 mmol/L 3 - 13 mmol/L [facility] Calcium [Mass/Vol] 9.2 mg/dL 8.4 - 10. 4 mg/dL [facility] Chloride [Moles/Vol] 104 mmol/L 98 - 10 7 mmol/L [facility] CO2 [Moles/Vol] 30 mmol/L 22 - 30 mmol/L [facility] Creatinine [Mass/Vol] 0.86 mg/dL 0.52 - 1.04 mg/dL [facility] GFR/1.73 sq M.predicted MDRD (S/P/Bld) [Vol rate/Area] 72.3 mL/min/{1.73_m2} - PINF [facility] Comment on above: Calculation based on the Chronic Kidney Disease Epidemiology Collaboration (CKD-EPI) equation refit without adjustment for race Glucose [Mass/Vol] 144 mg/dL High 70 - 100 mg/dL [facility] Interpretation and review of laboratory results Abnormal [facility] Potassium [Moles/Vol] 5.4 mmol/L High 3.5 - 5.1 mmol/L [facility] Sodium [Moles/Vol] 139 mmol/L 135 - 145 mmol/L [facility] Urea nitrogen [Mass/Vol] 26 mg/dL High 7 - 17 mg/dL [facility] Slightly Hemolyzed. Interpret Potassium with caution. [facility] Blood type and Crossmatch lynda jamison (Bld)on 09-06-2022 ABO group Nom (Bld) A [facility] Blood group antibody screen GEL Ql Negative [facility] D Ag Ql (RBC) Negative [facility] CBC W Auto Differential pane l (Bld)on 09-06-2022 Basophils (Bld) [#/Vol] 0.0 10*3/uL 0.0 - 0.2 10*3/uL [facility] Basophils/100 WBC (Bld) 0.5 % 0.0 - 2.0 % [facility] Eosinophils (Bld) [#/Vol] 0.2 10*3/uL 0.0 - 0.5 10*3/uL [facility] Eosinophils/100 WBC (Bld) 3.3 % 1.0 - 6.0 % [facility] Erythrocyte distribution width (RBC) [Ratio] 14.5 % 11.5 - 14.5 % [facility] Hematocrit (Bld) [Volume fraction] 40.1 % 35.0 - 47.0 % [facility] Hemoglobin (Bld) [Mass/Vol] 12.9 g/dL 11.7 - 16.0 g/dL [facility] Interpretation and review of laboratory results Normal [facility] Lymphocytes (Bld) [#/Vol] 1.6 10*3/uL 1.0 - 4.3 10*3/uL [facility] Lymphocytes/100 WBC (Bld) 24.7 % 20.0 - 40.0 % [facility] MCH (RBC) [Entitic mass] 30.6 pg 26.0 - 34.0 pg [facility] MCHC (RBC) [Mass/Vol] 32.2 % 32.0 - 36.0 % [facility] MCV (RBC) [Entitic vol] 95.2 fL 80.0 - 98.0 fL [facility] Monocytes (Bld) [#/Vol] 0.5 10*3/uL 0.0 - 0.8 10*3/uL [facility] Monocytes/100 WBC (Bld) 7.9 % 2.0 - 10.0 % [facility] Neutrophils (Bld) [#/Vol] 4.1 10*3/uL 1.8 - 7.0 10*3/uL [facility] Neutrophils/100 WBC (Bld) 63.6 % 40.0 - 80.0 % [facility] Nucleated RBC/100 WBC (Bld) [Ratio] 0.1 % [facility] Platelet mean volume (Bld) [Entitic vol] 8.7 fL 7.4 - 12.4 fL [facility] Platelets (Bld) [#/Vol] 150 10*3/uL 140 - 440 10*3/uL [facility] RBC (Bld) [#/Vol] 4.21 10*6/uL 3.8 - 5.20 10*6/uL [facility] WBC (Bld) [#/Vol] 6.4 10*3/uL 3.6 - 10.7 10*3/uL [facility] CT CERVICAL SPINE WO IV CONT RASTon [...] cervical spine fracture. Report Dictated on Workstation: [employer] Electronically Signed By: Tiago Charles Electronically Signed Date/Time: 09/06/2022 2:24 AM EDT [facility] CT Cervical spine WO contras ton 09-06-2022 No cervical spine fr acture. Report Dictated on Workstation: [employer] Electronically Signed By: Tiago Charles Electronically Signed Date/Time: 09/06/2022 2:24 AM EDT [facility] Patient Name: DANIEL DIAZ ECHO : [...] tissues and lung apices are unremarkable. [facility] Tiago Charles MD - Patient [...] Electronically Signed Date/Time: 09/06/2022 2:24 AM EDT [facility] IV CONTRASTon CT [...] Electronically Signed Date/Time: 09/06/2022 8:39 AM EDT [facility] CT HEAD WO IV CONTRAST Patient Name: PATSY JUAN : 1950 [id number] Exam Date/Time: 09/06/2022 02:11 Procedure: CT HEAD [...] Electronically Signed Date/Time: 09/06/2022 2:16 AM EDT [facility] CT Head WO contraston [address] evidence of ac radhika intracranial abnormality, other than mild acute sphenoid sinusitis. Report Dictated on Electronically Signed By: Gloria Darnell Electronically Signed Date/Time: 09/06/2022 8:39 AM EDT [facility] Patient Name: DANIEL DIAZ ECHO : [...] the distal vertebral arteries is also noted. [facility] Gloria Darnell MD - 09/06/2022 Patient Name: [...] Electronically Signed Date/Time: 09/06/2022 8:39 AM T [facility] Radiology Study observation (narrative) [facility] No acute intracrania l hemorrhage or mass effect. Report Dictated on Electronically Signed By: Tiago Charles Electronically Signed Date/Time: 09/06/2022 2:16 AM T [facility] Patient Name: DANIEL SSXYZ, ECHO : 1950 [facility]#: [id number] Exam Date/Time: 09/06/2022 02:11 Procedure: CT HEAD [...] are well aerated. Calvarium is unremarkable. [facility] Tiago Charles MD - Patient Name: PATSY JUAN : 1950 [id number] Exam Date/Time: 09/06/2022 02:11 Procedure: CT HEAD [...] Electronically Signed Date/Time: 09/06/2022 2:16 AM EDT [facility] CT Head WO contrastOrdered B y: Gloria Cerratonorthremy on 09-06-2022 [facility]: ED Nursing Noteon 09-06-2022 ED Nursing Note RN called back from Residence for report after patient left. This RN updated RN. No questions or concerns Lucy Jones RN 09/06/22 1115 [facility] ED Nursing Note This RN attempted re port at [place] [facility] for patient. RN's busy, junior legal secretary took RN name and number to return call for report if wanted. Lucy Jones RN 09/06/22 1018 [facility] ED Nursing Note DM ETA 20-30 min (10 20-1030) Lucy Jones RN 09/06/22 0953 [facility] ED Nursing Note Patient resting with eyes closed. Respirations even and unlabored. RN called about work order for call light / panel. Will be there soon to fix. Lucy Jones RN 09/06/22 0944 [facility] ED Nursing Note Pt back in room Lucy Jones RN 09/06/22 0832 [facility] ED Nursing Note Pt at CT Lucy Jones RN 09/06/22 0826 [facility] ED Nursing Note Patient yelling in [...] time Lucy Jones RN 09/06/22 0739 [facility] ED Nursing Note Pt to x-ray in stabl e condition. Bárbara Hogan RN 09/06/22225 [facility] ED Nursing Note Report of to bárbara Younger RN 09/06/22220 [facility] ED Nursing Note Bed: 23 Expected date: Expected time: Means of arrival: Comments: SX TEAM Aaron Wallace RN 09/06/22220 [facility] ED Provider Noteon ED Provider Note Emergency Department Encounter Location: [facility] EM[facility] Patient: Patsy Juan : [...] 445 ms QTC Interval 457 ms P [place] 49 degrees QRS [place] -29 degrees T Wave [place] 11 degrees CA Interval [address] head wo IV [...] Result Upper pelvis is excluded from the aosjw-qg-rjuk. No fracture or dislocation of the imaged [...] y.o. female whose (more content not included)... [facility] ED Provider Note Emergency Department Encounter Location: [facility] EMERGENCY [facility]PT Patient: Patsy Juan : [...] 445 ms QTC Interval 457 ms P [place] 49 degrees QRS [place] -29 degrees T Wave [place] 11 degrees CA Interval 149 ms XR shoulder 2+ views [...] Result Upper pelvis is excluded from the idvrq-je-vsyr. No fracture or dislocation of the imaged [...] Impression 1. (more content not included)... [facility] ED Provider Note [facility] EM[facility] EMERGENCY DEPARTMENT ENCOUNTER Pt [...] A Ant (more content not included)... Normal [facility] Ethanol (Bld) [Mass/Vol]on 0 09-06-2022 Ethanol [Mass/Vol] g/dL 0.000 - 0.010 g/dL [facility] Laboratory - Chemistry and C hemistry - challengeon 09-06-2022 Troponin I.cardiac [Mass/Vol] ng/mL 0.000 - 0.034 ng/mL [facility] Magnesium [Mass/Vol] 1.8 mg/dL 1.6 - 2 .3 mg/dL [facility] Lactate [Moles/Vol] 1.4 mmol/L 0.7 - 2. 0 mmol/L [facility] Laboratory - Coagulationon 0 09-06-2022 aPTT Coag (PPP) [Time] 33.8 s High 20.0 - 30.5 s [facility] INR Coag (PPP) [Relative time] 1.8 {INR} High 0.9 - 1.1 [facility] Comment on above: Recommended Anticoag ulant [...] (Bld) [Time] 18.5 s High 9.0 - 1 2.0 s [facility] Laboratory - Drug toxicology Ordered By: Harper Estes on 09-06-2022 Amphetamines Screen method >1000 ng/mL Ql (U) Negative [facility] Barbiturates Screen method >200 ng/mL Ql (U) Negative [facility] Benzodiazepines Ql (U) Negative [facility] Methadone Screen Ql (U) Negative [facility] Opiates Screen Ql (U) Positive [facility] oxyCODONE Ql (U) Negative [facility] Phencyclidine Ql (U) Negative [facility] Magnesium [Mass/Vol]on 09-06 .01 [facility] [employer] No Panel InformationOrdered By: Harper Estes on 09-06-2022 COCAINE METAB. SCREEN Negative [facility] The expected value f or [...] is needed, request confirmation under separate order. [facility] [employer] No Panel Informationon 09-06 Interpretation and review of laboratory results Normal [facility] [employer] [facility] [employer] [employer] Interpretation and review of laboratory results Normal [facility] [employer] [facility] [employer] Interpretation and review of laboratory results Abnormal [facility] [employer] Radiology Study observation (narrative) [facility] [employer] Phosphate [Moles/Vol]on 08-20 Phosphate [Mass/Vol] 3.9 mg/dL 2.5 - 4 .5 mg/dL [facility] [employer] Slightly Hemolyzed. Interpret Phosphorus with caution. [facility] [employer] Progress Noteon 09-06-2022 Progress Note Department of Trauma / Critical Care Tertiary Survey Date of Trauma: 09/06/2022 1:36 AM MARIANELA/HPI: 72 y.o. female status post fall from standing. The incident happened around 0120 on 09/06/22 at [facility]. When the event happened the patient was [...] identified. There (more content not included)... Normal [facility] Troponin I.cardiac [Mass/Vol ]on 09-06-2022 Interpretation and review of laboratory results Normal [facility] Patients with high l evels of Biotin oral intake (ie >5 mg/day) may have falsely decreased Troponin levels. [facility] [employer] XR Chest Single viewon 09-06 No focal consolidati on or pulmonary edema. Report Dictated on Electronically Signed By: Tiago Charles Electronically Signed Date/Time: 09/06/2022 2:12 AM EDT [facility] Patient Name: PATSY MCFARLANE : 1950 Exam Date/Time: 09/06/2022 02:06 Procedure: XR CHEST 1 VIEW Ordering Provider: HUTSON RICHARD Reason For Exam: TRAUMA PORTABLE CHEST CLINICAL INDICATION: Pain, trauma TECHNIQUE: Portable AP COMPARISON: None FINDINGS: No focal consolidation or pulmonary edema. No pleural effusions or pneumothorax. The cardiac and mediastinal silhouettes are normal. Degenerative change of the thoracic spine is noted. [facility] Tiago Charles MD - Patient Name: [...] Electronically Signed Date/Time: 09/06/2022 2:12 AM EDT [facility] [employer] Radiology Study observation (narrative) [employer] XR Chest Single viewOrdered By: Tiago Charles on 09-06-2022 [employer] Work Phone: XR Pelvis 1 or 2 Viewson Upper pelvis is excl uded from the axttq-lr-jtwc. No fracture or dislocation of the imaged pelvis. Report Dictated on Electronically Signed By: Tiago Charles Electronically Signed Date/Time: 09/06/2022 2:12 AM EDT [facility] [employer] [facility] Patient Name: PATSY MCFARLANE : 1950 Exam Date/Time: 09/06/2022 02:07 Procedure: XR PELVIS 1-2 VIEWS Ordering Provider: HUTSON RICHARD Reason For Exam: TRAUMA PELVIS: CLINICAL INDICATION: Pain, trauma. TECHNIQUE: AP. Technical note: Upper pelvis is excluded from the axbij-ri-wckc. COMPARISON: None. FINDINGS: There is no evidence for fracture or dislocation. The hips joints are unremarkable. The imaged sacroiliac joints are normal. No bone lesion is identified. There is no soft tissue abnormality. Surgical clips project over the right groin. [facility] Tiago Charles MD - Patient Name: PATSY JUAN : 1950 Exam Date/Time: 09/06/2022 02:07 Procedure: XR PELVIS 1-2 VIEWS Ordering Provider: HUTSON RICHARD Reason For Exam: TRAUMA PELVIS: CLINICAL INDICATION: Pain, trauma. TECHNIQUE: AP. Technical note: Upper pelvis is excluded from the fkfxe-oq-elrq. COMPARISON: None. FINDINGS: There is no evidence for fracture or dislocation. The hips joints are unremarkable. The imaged sacroiliac joints are normal. No bone lesion is identified. There is no soft tissue abnormality. Surgical clips project over the right groin. IMPRESSION: Upper pelvis is excluded from the xnnwo-re-irte. No fracture or dislocation of the imaged pelvis. Report Dictated on Electronically Signed By: Tiago Charles Electronically Signed Date/Time: 09/06/2022 2:12 AM EDT [facility] Radiology Study observation (narrative) [facility] - left 2 Viewson 09-06-2022 No fracture or dislo cation. Report Dictated on Electronically Signed By: Tiago Charles Electronically Signed Date/Time: 09/06/2022 3:11 AM EDT [facility] [employer] Patient Name: PATSY MCFARLANE : 1950 [...] identified. There is no soft tissue abnormality. [facility] Tiago Charles MD - Patient Name: [...] Electronically Signed Date/Time: 09/06/2022 3:11 AM EDT [facility] Radiology Study observation (narrative) [facility] XR Shoulder - right 2 Viewso n 09-06-2022 No fracture or dislo cation. Report Dictated on Electronically Signed By: Tiago Charles Electronically Signed Date/Time: 09/06/2022 2:42 AM EDT [employer] Patient Name: PATSY MCFARLANE : 1950 [...] identified. There is no soft tissue abnormality. [facility] Tiago Charles MD - Patient Name: [...] Electronically Signed Date/Time: 09/06/2022 2:42 AM EDT [facility] Radiology Study observation (narrative) [facility] CULTURE BLOODon 03-14-2022 Microscopic examination of blood, culture CULTURE BLOOD --> Status: F [employer] testing is not routinely performed on Gram positive bacilli. If a Listeria infection is highly suspected, contact the Microbiology laboratory ([phone]). positive bacilli. If a Listeria infection is highly suspected, contact the Microbiology laboratory ([phone]). 1 Organism Propionibacterium acnes Isolated: Contamination likely unless additional blood culture sets are found to be positive with the same organism. Normal [facility] Comment on above: Performed By: #### C /BLD #### [address] [address] CULTURE BLOOD (Two)on 2021 Microscopic examination of blood, culture CULTURE BLOOD (Two) --> Status: F No growth at 5 days. Normal [facility] Comment on above: Performed By: #### P T/AP, BMP3, HEMDF #### [facility] [address] [place] [address] GASTROINTESTINAL PCR PANELon 03-12-2022 GASTROINTESTINAL PCR PANEL GASTROINTESTINAL PCR PANEL --> Status: F NEGATIVE: No targets were detected by the [employer] Gastrointestinal PCR Panel. _ The [employer] Gastrointestinal PCR Panel can detect the following targets: Campylobacter, Plesiomonas shigelloides, Salmonella, Vibrio species, Vibrio cholerae, Yersinia enterocolitica, Shiga toxin-producing E coli (STEC) including E coli O157, Enterotoxigenic E coli (ETEC), Shigella/Enteroinvasive E coli (EIEC), Cryptosporidium, Cyclospora cayetanensis, Entamoeba histolytica, Giardia lamblia, Adenovirus F 40/41, Astrovirus, Norovirus GI/GII, Rotavirus A, Sapovirus Gastrointestinal PCR Panel. _ The [employer] Gastrointestinal PCR Panel can detect the following targets: Campylobacter, Plesiomonas shigelloides, Salmonella, Vibrio species, Vibrio cholerae, Yersinia enterocolitica, Shiga toxin-producing E coli (STEC) including E coli O157, Enterotoxigenic E coli (ETEC), Shigella/Enteroinvasive E coli (EIEC), Cryptosporidium, Cyclospora cayetanensis, Entamoeba histolytica, Giardia lamblia, Adenovirus F 40/41, Astrovirus, Norovirus GI/GII, Rotavirus A, Sapovirus Normal [facility] Comment on above: Performed By: #### B FGI #### [facility] [address] [place] [address] Gastrointestinal Panel by [employer] 03-12-2022 Gastrointestinal PCR Panel NEGATIVE: No targets were detected by the [employer] Gastrointestinal PCR Panel. _ The [employer] Gastrointestinal PCR Panel can detect the following targets: Campylobacter, Plesiomonas shigelloides, Salmonella, Vibrio species, Vibrio cholerae, Yersinia enterocolitica, Shiga toxin-producing E coli (STEC) including E coli O157, Enterotoxigenic E coli (ETEC), Shigella/Enteroinvasive E coli (EIEC), Cryptosporidium, Cyclospora cayetanensis, Entamoeba histolytica, Giardia lamblia, Adenovirus F 40/41, Astrovirus, Norovirus GI/GII, Rotavirus A, Sapovirus [facility] Test Performed by [facility], [address] [place] [address], [place] [address] [facility] LAB [facility] Glucose,Bedsideon 03-12-2022 Glucose [Mass/Vol] 177 mg/dL High 70-100 [facility] Comment on above: Result Comment: Test performed by glucose meter. Results may be 10%-15% lower than serum/plasma values. (CLIA ID [id number]) Performed By: #### B GLU #### [facility] [address] [place] [address] Glucose [Mass/Vol] 130 mg/dL High 70-100 [facility] Comment on above: Result Comment: Test performed by glucose meter. Results may be 10%-15% lower than serum/plasma values. (CLIA ID [id number]) Performed By: #### B GLU #### [facility] [employer] [facility] [address] [place] [address] Glucose [Mass/Vol] 141 mg/dL High 70-100 [facility] Comment on above: Result Comment: Test performed by glucose meter. Results may be 10%-15% lower than serum/plasma values. (CLIA ID [id number]) Performed By: #### P T/AP, BMP3, HEMDF #### [facility] [employer] [facility] [address] [place] [address] Glucose [Mass/Vol] 120 mg/dL High 70-100 [facility] Comment on above: Result Comment: Test performed by glucose meter. Results may be 10%-15% lower than serum/plasma values. (CLIA ID [id number]) Performed By: #### B GLU #### [facility] [employer] [facility] [address] [place] [address] POCT GlucoseOrdered By: Hansel Connell on 03-12-2022 Glucose [Mass/Vol] 177 mg/dL High 70 - 100 mg/dL [facility] Work Phone: Comment on above: Test performed by gl ucose meter. Results may be 10%-15% lower than serum/plasma values. (CLIA ID [id number]) Interpretation and review of laboratory results Abnormal [facility] Work Phone: [facility] Work Phone: POCT Glucoseon 03-12-2022 Test Performed by [facility], [address] LAB Glucose [Mass/Vol] 130 mg/dL High 70 - 100 mg/dL [facility] Comment on above: Test performed by gl ucose meter. Results may be 10%-15% lower than serum/plasma values. (CLIA ID [id number]) Interpretation and review of laboratory results Abnormal [facility] Test Performed by [facility], [address] LAB [facility] Glucose [Mass/Vol] 141 mg/dL High 70 - 100 mg/dL [facility] Comment on above: Test performed by gl ucose meter. Results may be 10%-15% lower than serum/plasma values. (CLIA ID [id number]) Interpretation and review of laboratory results Abnormal [facility] Test Performed by [facility], [address] LAB [facility] Glucose [Mass/Vol] 120 mg/dL High 70 - 100 mg/dL [facility] Work Phone: Comment on above: Test performed by gl ucose meter. Results may be 10%-15% lower than serum/plasma values. (CLIA ID [id number]) Interpretation and review of laboratory results Abnormal [facility] Work Phone: Test Performed by [facility], [address] LAB [facility] Work Phone: Prothrombin Timeon 2 INR 3.6 High 0.9-1.1 [facility] Comment on above: Result Comment: Rajiv [...] By: #### P T/AP, BMP3, HEMDF #### [facility] [address] [place] [address] PT Coag (PPP) [Time] 36.1 s High 9.0-12.0 [facility] Comment on above: Result Comment: . Performed By: #### P T/AP, BMP3, HEMDF #### [facility] [address] [place] [address] Protime-INRon 03-12-2022 INR Coag (Bld) [Relative time] 3.6 {INR} High [facility] Comment on above: Recommended Anticoag ulant [...] Interpretation and review of laboratory results Abnormal [facility] PT Coag (PPP) [Time] 36.1 s High 9 - 12 s [facility] Comment on above: . Test Performed by [facility], [address] [place], [place] [id number] [place] [address] LAB [facility] Basic Metabolic Panelon 02-21 Anion gap [Moles/Vol] 1 mmol/L Low 3-13 [facility] Comment on above: Performed By: #### P T/AP, BMP3, HEMDF #### [facility] [address] [place] [address] Calcium [Mass/Vol] 8.1 mg/dL Low 8.4-10.4 [facility] Comment on above: Performed By: #### P T/AP, BMP3, HEMDF #### [facility] [address] [place] [address] CO2 [Moles/Vol] 30 mmol/L Normal 22-30 [facility] Comment on above: Performed By: #### P T/AP, BMP3, HEMDF #### [facility] [address] [place] [address] Creatinine [Mass/Vol] 0.70 mg/dL Normal 0.52-1.25 [facility] Comment on above: Performed By: #### P T/AP, BMP3, HEMDF #### [facility] [address] [place] [address] GFR/1.73 sq M.predicted among blacks MDRD (S/P/Bld) [Vol rate/Area] mL/min/{1.73_m2} Normal >60 [facility] Comment on above: Performed By: #### P T/AP, BMP3, HEMDF #### [facility] [address] [place] [address] GFR/1.73 sq M.predicted among non-blacks MDRD (S/P/Bld) [Vol rate/Area] 87.4 mL/min/{1.73_m2} Normal >60 [facility] Comment on above: Result Comment: KDIG [...] By: #### P T/AP, BMP3, HEMDF #### [facility] [address] [place] [address] Glucose [Mass/Vol] 118 mg/dL High 70-100 [facility] Comment on above: Performed By: #### P T/AP, BMP3, HEMDF #### [facility] [address] [place] [address] Urea nitrogen [Mass/Vol] 8 mg/dL Low 9-20 [facility] Comment on above: Performed By: #### P T/AP, BMP3, HEMDF #### [facility] [address] [place] [address] Chloride [Moles/Vol] 106 mmol/L Normal 98-107 [facility] Comment on above: Performed By: #### P T/AP, BMP3, HEMDF #### [facility] [address] [place] [address] Potassium [Moles/Vol] 4.1 mmol/L Normal 3.5-5.1 [facility] Comment on above: Performed By: #### P T/AP, BMP3, HEMDF #### [facility] [address] [place] [address] Sodium [Moles/Vol] 137 mmol/L Normal 135-145 [facility] Comment on above: Performed By: #### P T/AP, BMP3, HEMDF #### [facility] [address] [place] [address] Anion gap [Moles/Vol] 1 mmol/L Low 3 - 13 mmol/L [facility] Calcium [Mass/Vol] 8.1 mg/dL Low 8.4 - 10. 4 mg/dL [facility] Chloride [Moles/Vol] 106 mmol/L 98 - 10 7 mmol/L [facility] CO2 [Moles/Vol] 30 mmol/L 22 - 30 mmol/L [facility] Creatinine [Mass/Vol] 0.7 mg/dL 0.52 - 1.25 mg/dL [facility] eGFR mL/min 60 - P INF mL/min [facility] EGFR IF NonAfrican Fijian 87.4 mL/min 60 - PINF mL/min [facility] Comment on above: KDIGO guidelines pro vide [...] - 20 mg/dL [facility] Test Performed by [facility], [address] [place] [address] LAB [facility] CBC with Auto Differentialon 03-11-2022 [...] [Mass/Vol] 35.6 % 32 - 36 % [facility] MCV (RBC) [Entitic vol] 90.2 fL 79 [...] - 10.7 10*3/uL [facility] Test Performed by [facility], [address] [place] [address] LAB [facility] CULTURE URINEon 03-11-2022 CULTURE URINE 1 Organism Klebsiell a pneumoniae >100,000 CFU/ml 1 Organism Antibiotic Result Intrp Ampicillin([facility]) R Cefazolin([facility]) <= 4 S Ceftriaxone([facility]) <= 1 S Cefepime([facility]) <= 1 S Aztreonam([facility]) <= 1 S Amoxicillin/Clavulanic Acid([facility]) <= 2 S Ampicillin/Sulbactam([facility]) 4 S Pip/Tazobactam([facility]) <= 4 S Meropenem([facility]) <= 0.25 S Ciprofloxacin([facility]) <= 0.25 S Trimeth/Sulfa(NOMRA) <= 20 S Nitrofurantoin([facility]) 64 I Gentamicin([facility]) <= 1 S Amikacin([facility]) <= 2 S Normal [facility] Comment on above: Performed By: #### P T/AP, BMP3, HEMDF #### [facility] [address] [place] [address] Culture, Urineon 03-11-2022 Bacteria identified Cx Nom (U) Klebsiella pneumoniae ss. pneumoniae Abnormal [facility] Bacteria identified Cx Nom (U) >100,000 CFU/ml [facility] Interpretation and review of laboratory results Abnormal [facility] Test Performed by [facility], [address] [place] [id number] [facility] [facility] Glucose,Bedsideon 03-11-2022 Glucose [Mass/Vol] 140 mg/dL High [address] Comment on above: Result Comment: Test performed by glucose meter. Results may be 10%-15% lower than serum/plasma values. (CLIA ID [id number]) Performed By: #### P T/AP, BMP3, HEMDF #### [facility] [address] [place] [address] Glucose [Mass/Vol] 121 mg/dL High [address] Comment on above: Result Comment: Test performed by glucose meter. Results may be 10%-15% lower than serum/plasma values. (CLIA ID [id number]) Performed By: #### P T/AP, BMP3, HEMDF #### [facility] [address] [place] [address] Glucose [Mass/Vol] 127 mg/dL [facility] [address] Comment on above: Result Comment: Test performed by glucose meter. Results may be 10%-15% lower than serum/plasma values. (CLIA ID [id number]) Performed By: #### P T/AP, BMP3, HEMDF #### [facility] [address] [place] [address] Glucose [Mass/Vol] 139 mg/dL High 70-100 [facility] Comment on above: Result Comment: Test performed by glucose meter. Results may be 10%-15% lower than serum/plasma values. (CLIA ID [id number]) Performed By: #### P T/AP, BMP3, HEMDF #### [facility] [address] [place] [address] Hemogram w/ Autodiffon 03-11 Abs Baso Cnt 0.0 10*3/uL Normal 0.0-0.2 [facility] Comment on above: Performed By: #### P T/AP, BMP3, HEMDF #### [facility] [address] [place] [address] Abs Neutrophile Cnt 2.9 10*3/uL Normal 1.8-7.0 [facility] Comment on above: Performed By: #### P T/AP, BMP3, HEMDF #### [facility] [address] [place] [address] Basophils/100 WBC (Bld) 0.6 % Normal 0.0-2.0 [facility] Comment on above: Performed By: #### P T/AP, BMP3, HEMDF #### [facility] [address] [place] [address] Eosinophils (Bld) [#/Vol] 0.2 10*3/uL Normal 0.0-0.5 [facility] Comment on above: Performed By: #### P T/AP, BMP3, HEMDF #### [facility] [address] [place] [address] Eosinophils/100 WBC (Bld) 5.3 % Normal 1.0-6.0 [facility] Comment on above: Performed By: #### P T/AP, BMP3, HEMDF #### [facility] [address] [place] [address] Erythrocyte distribution width (RBC) [Ratio] 13.8 % Normal 11.5-14.5 [facility] Comment on above: Performed By: #### P T/AP, BMP3, HEMDF #### [facility] [address] [place] [address] Granulocytes/100 WBC (Bld) 62.2 % Normal 40.0-80.0 [facility] Comment on above: Performed By: #### P T/AP, BMP3, HEMDF #### [facility] [address] [place] [address] Hematocrit (Bld) [Volume fraction] 32.8 % Low 35.0-47.0 [facility] Comment on above: Performed By: #### P T/AP, BMP3, HEMDF #### [facility] [address] [place] [address] Hemoglobin (Bld) [Mass/Vol] 11.7 g/dL Normal 11.7-16.0 [facility] Comment on above: Performed By: #### P T/AP, BMP3, HEMDF #### [facility] [address] [place] [address] Lymphocytes (Bld) [#/Vol] 1.0 10*3/uL Normal 1.0-4.3 [facility] Comment on above: Performed By: #### P T/AP, BMP3, HEMDF #### [facility] [address] [place] [address] Lymphocytes/100 WBC (Bld) 22.5 % Normal 20.0-40.0 [facility] Comment on above: Performed By: #### P T/AP, BMP3, HEMDF #### [facility] [address] [place] [address] MCH (RBC) [Entitic mass] 32.1 pg Normal 26.0-34.0 [facility] Comment on above: Performed By: #### P T/AP, BMP3, HEMDF #### [facility] [address] [place] [address] MCHC 35.6 % Normal 32.0-36.0 [facility] Comment on above: Performed By: #### P T/AP, BMP3, HEMDF #### [facility] [address] [place] [address] MCV (RBC) [Entitic vol] 90.2 fL Normal 79.0-98.0 [facility] Comment on above: Performed By: #### P T/AP, BMP3, HEMDF #### [facility] [address] [place] [address] Monocytes (Bld) [#/Vol] 0.4 10*3/uL Normal 0.0-0.8 [facility] Comment on above: Performed By: #### P T/AP, BMP3, HEMDF #### [facility] [address] [place] [address] Monocytes/100 WBC (Bld) 9.4 % Normal 2.0-10.0 [facility] Comment on above: Performed By: #### P T/AP, BMP3, HEMDF #### [facility] [address] [place] [address] Platelet mean volume (Bld) [Entitic vol] 8.2 fL Normal 7.4-12.4 [facility] Comment on above: Result Comment: MPV is a calculated measurement using platelet volume ratio. Performed By: #### P T/AP, BMP3, HEMDF #### [facility] [address] [place] [address] Platelets (Bld) [#/Vol] 128 10*3/uL Low 140-440 [facility] Comment on above: Performed By: #### P T/AP, BMP3, HEMDF #### [facility] [address] [place] [address] RBC (Bld) [#/Vol] 3.63 10*6/uL Low 3.80-5.20 [facility] Comment on above: Performed By: #### P T/AP, BMP3, HEMDF #### [facility] [address] [place] [address] WBC (Bld) [#/Vol] 4.6 10*3/uL Normal 3.6-10.7 [facility] Comment on above: Performed By: #### P T/AP, BMP3, HEMDF #### [facility] [address] [place] [address] POCT COVID-19, Antigenon SARS-CoV-2 Nucleocapsid Antigen Negative Negative NA [facility] Comment on above: A negative result does not rule out the possibility of SARS-CoV-2 infection. NAAT-based methods should be considered for symptomatic patients presenting greater than seven days after onset of symptoms. Method: Lateral flow immunoassay. Fact sheets for healthcare providers and patients can be found at the following sites: https://www.fda.gov/media/207759/download https://www.fda.gov/media/775727/download Test Performed by [facility], [address] LAB [facility] POCT GlucoseOrdered By: Pedro Luis Mcleod on 03-11-2022 Glucose [Mass/Vol] 140 mg/dL High 70 - 100 mg/dL [facility] Comment on above: Test performed by gl ucose meter. Results may be 10%-15% lower than serum/plasma values. (CLIA ID [id number]) Interpretation and review of laboratory results Abnormal [facility] POCT Glucoseon 03-11-2022 Test Performed by [facility], [address] LAB Glucose [Mass/Vol] 121 mg/dL High 70 - 100 mg/dL [facility] Work Phone: Comment on above: Test performed by gl ucose meter. Results may be 10%-15% lower than serum/plasma values. (CLIA ID [id number]) Interpretation and review of laboratory results Abnormal [facility] Work Phone: Test Performed by [facility], [address] LAB [facility] Work Phone: Test Performed by [facility], [address] LAB Glucose [Mass/Vol] 139 mg/dL High 70 - 100 mg/dL [facility] Work Phone: Comment on above: Test performed by gl ucose meter. Results may be 10%-15% lower than serum/plasma values. (CLIA ID [id number]) Interpretation and review of laboratory results Abnormal [facility] Work Phone: Test Performed by [facility], [address], [place], [place] [address] [facility] Work Phone: POCT GlucoseOrdered By: Mil Marie on 03-11-2022 Glucose [Mass/Vol] 127 mg/dL High 70 - 100 mg/dL [facility] Work Phone: Comment on above: Test performed by gl ucose meter. Results may be 10%-15% lower than serum/plasma values. (CLIA ID [id number]) Interpretation and review of laboratory results Abnormal [facility] Work Phone: [facility] Work Phone: PROTIME/INR & PTTon 03-11-20 22 INR Coag (Bld) [Relative time] 5.0 {INR} Critically high [facility] Comment on above: Recommended Anticoag ulant [...] Interpretation and review of laboratory results Abnormal [facility] Test Performed by [facility], [address] [place], [place] [id number] [place] [address] LAB [facility] Protime AND APTTon 2 INR 5.0 Critically high 0.9-1.1 [facility] Comment on above: Result Comment: Rajiv [...] By: #### P T/AP, BMP3, HEMDF #### [facility] [address] [place] [address] aPTT Coag (Bld) [Time] 44.1 s High 20.0-30.5 [facility] Comment on above: NOTE: The therapeuti c time for Heparin anticoagulation, based on Xa activity inhibition, is an APTT of 46-80 seconds. Result Comment: NOTE : The therapeutic time for Heparin anticoagulation, based on Xa activity inhibition, is an APTT of 46-80 seconds. Performed By: #### P T/AP, BMP3, HEMDF #### [facility] [address] [place] [address] PT Coag (PPP) [Time] 48.7 s High 9.0-12.0 [facility] Comment on above: . Result Comment: . Performed By: #### P T/AP, BMP3, HEMDF #### [facility] [address] [place] [address] SARS-CoV-2 Antigenon SARS-CoV-2 Antigen Negative Normal Negative [facility] Comment on above: Result Comment: A negative result does not rule out the possibility of SARS-CoV-2 infection. NAAT-based methods should be considered for symptomatic patients presenting greater than seven days after onset of symptoms. Method: Lateral flow immunoassay. Fact sheets for healthcare providers and patients can be found at the following sites: https://www.fda.gov/media/072472/download https://www.fda.gov/media/419238/download Performed By: #### P T/AP, BMP3, HEMDF #### [facility] [address] [place] [address] Glucose,Bedsideon 03-10-2022 Glucose [Mass/Vol] 137 mg/dL High 70-100 [facility] Comment on above: Result Comment: Test performed by glucose meter. Results may be 10%-15% lower than serum/plasma values. (CLIA ID [id number]) Performed By: #### P T/AP, BMP3, HEMDF #### [facility] [address] [place] [address] Glucose [Mass/Vol] 98 mg/dL Normal 70-100 [facility] Comment on above: Result Comment: Test performed by glucose meter. Results may be 10%-15% lower than serum/plasma values. (CLIA ID [id number]) Performed By: #### P T/AP, BMP3, HEMDF #### [facility] [address] [place] [address] Glucose [Mass/Vol] 143 mg/dL High 70-100 [facility] Comment on above: Result Comment: Test performed by glucose meter. Results may be 10%-15% lower than serum/plasma values. (CLIA ID [id number]) Performed By: #### B GLU #### [facility] [address] [place] [address] Glucose [Mass/Vol] 170 mg/dL High 70-100 [facility] Comment on above: Result Comment: Test performed by glucose meter. Results may be 10%-15% lower than serum/plasma values. (CLIA ID [id number]) Performed By: #### B GLU #### [facility] [address] [place] [address] POCT GlucoseOrdered By: Tristin Mayers on 03-10-2022 Glucose [Mass/Vol] 137 mg/dL High 70 - 100 mg/dL [facility] Comment on above: Test performed by gl ucose meter. Results may be 10%-15% lower than serum/plasma values. (CLIA ID [id number]) Interpretation and review of laboratory results Abnormal [facility] POCT Glucoseon 03-10-2022 Test Performed by [facility], [address] [place], [place] [id number] [place] [address] LAB Glucose [Mass/Vol] 98 mg/dL 70 - 100 mg/dL [facility] Work Phone: Comment on above: Test performed by gl ucose meter. Results may be 10%-15% lower than serum/plasma values. (CLIA ID [id number]) Test Performed by [facility], [address] [place], [place] [id number] [place] [address] LAB [facility] Work Phone: Test Performed by [facility], [address], [place], [place] [id number] [place] [address] LAB Glucose [Mass/Vol] 170 mg/dL High 70 - 100 mg/dL [facility] Work Phone: Comment on above: Test performed by gl ucose meter. Results may be 10%-15% lower than serum/plasma values. (CLIA ID [id number]) Interpretation and review of laboratory results Abnormal [facility] Work Phone: Test Performed by [facility], [address], [place], [place] [address] [facility] Work Phone: POCT GlucoseOrdered By: Mil Benitez on 03-10-2022 Glucose [Mass/Vol] 143 mg/dL High 70 - 100 mg/dL [facility] Work Phone: Comment on above: Test performed by gl ucose meter. Results may be 10%-15% lower than serum/plasma values. (CLIA ID [id number]) Interpretation and review of laboratory results Abnormal [...] Interpretation and review of laboratory results Abnormal [facility] PT Coag (PPP) [Time] 34 s High 9 - 12 s [facility] Comment on above: . Test Performed by [facility], [address] [place] [address] [facility] Protime AND APTTon aPTT Coag (Bld) [Time] 40.6 s High 20.0-30.5 [facility] Comment on above: Result Comment: NOTE : The therapeutic time for Heparin anticoagulation, based on Xa activity inhibition, is an APTT of 46-80 seconds. Performed By: #### P T/AP, BMP3, HEMDF #### [facility] [address] [place] [address] INR 3.4 High 0.9-1.1 [facility] Comment on above: Result Comment: Rajiv [...] By: #### P T/AP, BMP3, HEMDF #### [facility] [address] [place] [address] PT Coag (PPP) [Time] 34.0 s High 9.0-12.0 [facility] Comment on above: Result Comment: . Performed By: #### P T/AP, BMP3, HEMDF #### [facility] [address] [place] [address] Basic Metabolic Panelon 02-20 Anion gap [Moles/Vol] 4 mmol/L Normal 3-13 [facility] Comment on above: Performed By: #### P T/AP, BMP3, HEMDF #### [facility] [address] [place] [address] Calcium [Mass/Vol] 7.7 mg/dL Low 8.4-10.4 [facility] Comment on above: Performed By: #### P T/AP, BMP3, HEMDF #### [facility] [address] [place] [address] CO2 [Moles/Vol] 25 mmol/L Normal 22-30 [facility] Comment on above: Performed By: #### P T/AP, BMP3, HEMDF #### [facility] [address] [place] [address] Glucose [Mass/Vol] 84 mg/dL Normal 70-100 [facility] Comment on above: Performed By: #### P T/AP, BMP3, HEMDF #### [facility] [address] [place] [address] Urea nitrogen [Mass/Vol] 14 mg/dL Normal 9-20 [facility] Comment on above: Performed By: #### P T/AP, BMP3, HEMDF #### [facility] [address] [place] [address] Creatinine [Mass/Vol] 0.85 mg/dL Normal 0.52-1.25 [facility] Comment on above: Performed By: #### P T/AP, BMP3, HEMDF #### [facility] [address] [place] [address] GFR/1.73 sq M.predicted among blacks MDRD (S/P/Bld) [Vol rate/Area] 80.1 mL/min/{1.73_m2} Normal >60 [facility] Comment on above: Performed By: #### P T/AP, BMP3, HEMDF #### [facility] [address] [place] [address] GFR/1.73 sq M.predicted among non-blacks MDRD (S/P/Bld) [Vol rate/Area] 69.1 mL/min/{1.73_m2} Normal >60 [facility] Comment on above: Result Comment: KDIG [...] By: #### P T/AP, BMP3, HEMDF #### [facility] [address] [place] [address] Chloride [Moles/Vol] 106 mmol/L Normal 98-107 [facility] Comment on above: Performed By: #### P T/AP, BMP3, HEMDF #### [facility] [address] [place] [address] Potassium [Moles/Vol] 3.9 mmol/L Normal 3.5-5.1 [facility] Comment on above: Performed By: #### P T/AP, BMP3, HEMDF #### [facility] [address] [place] [address] Sodium [Moles/Vol] 135 mmol/L Normal 135-145 [facility] Comment on above: Performed By: #### P T/AP, BMP3, HEMDF #### [facility] [address] [place] [address] Basic Metabolic Panel w/ Ref uriel to MGon 03-09-2022 Anion gap [Moles/Vol] 4 mmol/L 3 - 13 mmol/L [facility] Calcium [Mass/Vol] 7.7 mg/dL Low 8.4 - 10. 4 mg/dL [facility] Chloride [Moles/Vol] 106 mmol/L 98 - 10 7 mmol/L [facility] CO2 [Moles/Vol] 25 mmol/L 22 - 30 mmol/L [facility] Creatinine [Mass/Vol] 0.85 mg/dL 0.52 - 1.25 mg/dL [facility] EGFR IF NonAfrican [place]ijian 69.1 mL/min 60 - PINF mL/min [facility] Comment on above: KDIGO guidelines pro vide [...] - 20 mg/dL [facility] Test Performed by [facility], [address] [place] [address] LAB [facility] CBC with Auto Differentialon 03-09-2022 [...] [Mass/Vol] 35.2 % 32 - 36 % [facility] MCV (RBC) [Entitic vol] 91.4 fL 79 [...] - 10.7 10*3/uL [facility] Test Performed by [facility], [address] [place], [place] [id number] [place] [address] LAB [facility] Glucose,Bedsideon 03-09-2022 Glucose [Mass/Vol] 186 mg/dL High 70-100 [facility] Comment on above: Result Comment: Test performed by glucose meter. Results may be 10%-15% lower than serum/plasma values. (CLIA ID [id number]) Performed By: #### P T/AP, BMP3, HEMDF #### [facility] [address] [place] [address] Glucose [Mass/Vol] 139 mg/dL High 70-100 [facility] Comment on above: Result Comment: Test performed by glucose meter. Results may be 10%-15% lower than serum/plasma values. (CLIA ID [id number]) Performed By: #### P T/AP, BMP3, HEMDF #### [facility] [address] [place] [address] Glucose [Mass/Vol] 160 mg/dL High 70-100 [facility] Comment on above: Result Comment: Test performed by glucose meter. Results may be 10%-15% lower than serum/plasma values. (CLIA ID [id number]) Performed By: #### P T/AP, BMP3, HEMDF #### [facility] [address] [place] [address] Glucose [Mass/Vol] 96 mg/dL Normal 70-100 [facility] Comment on above: Result Comment: Test performed by glucose meter. Results may be 10%-15% lower than serum/plasma values. (CLIA ID [id number]) Performed By: #### B GLU #### [facility] [address] [place] [address] Hemoglobin A1Con 03-09-2022 Glucose [Mass/Vol] 151 mg/dL Normal [facility] Comment on above: Performed By: #### B GLU #### [facility] [address] [place] [address] HbA1c (Bld) [Mass fraction] 6.9 % Abnormal [facility] Comment on above: Result Comment: Norm al less than 5.7% Prediabetes 5.7% to 6.4% Diabetes 6.5% or higher --HgbA1C levels may not be accurate in patients who have renal disease, received recent blood transfusions, are anemic, or who have dyshemoglobinemia. Performed By: #### B GLU #### [facility] [address] [place] [address] Hemoglobin A1con 03-09-2022 HbA1c (Bld) [Mass fraction] 6.9 % Abnormal [facility] Comment on above: Normal less than 5.7 % Prediabetes 5.7% to 6.4% Diabetes 6.5% or higher --HgbA1C levels may not be accurate in patients who have renal disease, received recent blood transfusions, are anemic, or who have dyshemoglobinemia. Interpretation and review of laboratory results Abnormal [facility] Magnesium [Mass/Vol] 151 mg/dL [facility] Test Performed by [facility], [address] [place] [address] [facility] LAB [facility] Hemogram w/ Autodiffon 03-09 Abs Baso Cnt 0.0 10*3/uL Normal 0.0-0.2 [facility] Comment on above: Performed By: #### P T/AP, BMP3, HEMDF #### [facility] [address] [place] [address] Abs Neutrophile Cnt 4.1 10*3/uL Normal 1.8-7.0 [facility] Comment on above: Performed By: #### P T/AP, BMP3, HEMDF #### [facility] [address] [place] [address] Basophils/100 WBC (Bld) 0.6 % Normal 0.0-2.0 [facility] Comment on above: Performed By: #### P T/AP, BMP3, HEMDF #### [facility] [address] [place] [address] Eosinophils (Bld) [#/Vol] 0.1 10*3/uL Normal 0.0-0.5 [facility] Comment on above: Performed By: #### P T/AP, BMP3, HEMDF #### [facility] [address] [place] [address] Eosinophils/100 WBC (Bld) 1.6 % Normal 1.0-6.0 [facility] Comment on above: Performed By: #### P T/AP, BMP3, HEMDF #### [facility] [address] [place] [address] Erythrocyte distribution width (RBC) [Ratio] 13.9 % Normal 11.5-14.5 [facility] Comment on above: Performed By: #### P T/AP, BMP3, HEMDF #### [facility] [address] [place] [address] Granulocytes/100 WBC (Bld) 74.6 % Normal 40.0-80.0 [facility] Comment on above: Performed By: #### P T/AP, BMP3, HEMDF #### [facility] [address] [place] [address] Hematocrit (Bld) [Volume fraction] 31.8 % Low 35.0-47.0 [facility] Comment on above: Performed By: #### P T/AP, BMP3, HEMDF #### [facility] [address] [place] [address] Hemoglobin (Bld) [Mass/Vol] 11.2 g/dL Low 11.7-16.0 [facility] Comment on above: Performed By: #### P T/AP, BMP3, HEMDF #### [facility] [address] [place] [address] Lymphocytes (Bld) [#/Vol] 0.9 10*3/uL Low 1.0-4.3 [facility] Comment on above: Performed By: #### P T/AP, BMP3, HEMDF #### [facility] [address] [place] [address] Lymphocytes/100 WBC (Bld) 16.3 % Low 20.0-40.0 [facility] Comment on above: Performed By: #### P T/AP, BMP3, HEMDF #### [facility] [address] [place] [address] MCH (RBC) [Entitic mass] 32.2 pg Normal 26.0-34.0 [facility] Comment on above: Performed By: #### P T/AP, BMP3, HEMDF #### [facility] [address] [place] [address] MCHC 35.2 % Normal 32.0-36.0 [facility] Comment on above: Performed By: #### P T/AP, BMP3, HEMDF #### [facility] [address] [place] [address] MCV (RBC) [Entitic vol] 91.4 fL Normal 79.0-98.0 [facility] Comment on above: Performed By: #### P T/AP, BMP3, HEMDF #### [facility] [address] [place] [address] Monocytes (Bld) [#/Vol] 0.4 10*3/uL Normal 0.0-0.8 [facility] Comment on above: Performed By: #### P T/AP, BMP3, HEMDF #### [facility] [address] [place] [address] Monocytes/100 WBC (Bld) 6.9 % Normal 2.0-10.0 [facility] Comment on above: Performed By: #### P T/AP, BMP3, HEMDF #### [facility] [address] [place] [address] Platelet mean volume (Bld) [Entitic vol] 8.4 fL Normal 7.4-12.4 [facility] Comment on above: Result Comment: MPV is a calculated measurement using platelet volume ratio. Performed By: #### P T/AP, BMP3, HEMDF #### [facility] [address] [place] [address] Platelets (Bld) [#/Vol] 102 10*3/uL Low 140-440 [facility] Comment on above: Performed By: #### P T/AP, BMP3, HEMDF #### [facility] [address] [place] [address] RBC (Bld) [#/Vol] 3.48 10*6/uL Low 3.80-5.20 [facility] Comment on above: Performed By: #### P T/AP, BMP3, HEMDF #### [facility] [address] [place] [address] WBC (Bld) [#/Vol] 5.5 10*3/uL Normal 3.6-10.7 [facility] Comment on above: Performed By: #### P T/AP, BMP3, HEMDF #### [facility] [address] [place] [address] POCT GlucoseOrdered By: Blayne Villalobos on 03-09-2022 Glucose [Mass/Vol] 186 mg/dL High 70 - 100 mg/dL [facility] Work Phone: Comment on above: Test performed by gl ucose meter. Results may be 10%-15% lower than serum/plasma values. (CLIA ID [id number]) Interpretation and review of laboratory results Abnormal [facility] Work Phone: [facility] Work Phone: POCT Glucoseon 03-09-2022 Test Performed by [facility], [address], [address] LAB Glucose [Mass/Vol] 139 mg/dL High 70 - 100 mg/dL [facility] Work Phone: Comment on above: Test performed by gl ucose meter. Results may be 10%-15% lower than serum/plasma values. (CLIA ID [id number]) Interpretation and review of laboratory results Abnormal [facility] Work Phone: Test Performed by [facility], [address] LAB [facility] Work Phone: Test Performed by [facility], [address] LAB Glucose [Mass/Vol] 96 mg/dL 70 - 100 mg/dL [facility] Work Phone: Comment on above: Test performed by gl ucose meter. Results may be 10%-15% lower than serum/plasma values. (CLIA ID [id number]) Test Performed by [facility], [address] LAB [facility] Work Phone: POCT GlucoseOrdered By: Ines Choi on 03-09-2022 Glucose [Mass/Vol] 160 mg/dL High 70 - 100 mg/dL [facility] Comment on above: Test performed by gl ucose meter. Results may be 10%-15% lower than serum/plasma values. (CLIA ID [id number]) Interpretation and review of laboratory results Abnormal [facility] & PTTon 03-09-20 22 aPTT Coag [...] Interpretation and review of laboratory results Abnormal [facility] PT Coag (PPP) [Time] 24.5 s High 9 - 12 s [facility] Comment on above: . Test Performed by [facility], [address], [place], [place] [id number] [place] [address] LAB [facility] Protime AND APTTon aPTT Coag (Bld) [Time] 40.6 s High 20.0-30.5 [facility] Comment on above: Result Comment: NOTE : The therapeutic time for Heparin anticoagulation, based on Xa activity inhibition, is an APTT of 46-80 seconds. Performed By: #### P T/AP, BMP3, HEMDF #### [facility] [address] [place] [address] INR 2.4 High 0.9-1.1 [facility] Comment on above: Result Comment: Rajiv [...] By: #### P T/AP, BMP3, HEMDF #### [facility] [address] [place] [address] PT Coag (PPP) [Time] 24.5 s High 9.0-12.0 [facility] Comment on above: Result Comment: . Performed By: #### P T/AP, BMP3, HEMDF #### [facility] [address] [place] [address] TSHon 03-09-2022 TSH Qn 3.493 u[IU]/mL 0.465 - 4.68 u[IU]/mL [facility] Test Performed by [facility], [address] [place], [place] [id number] [place] [address] LAB [facility] Thyroid Stim. Hormoneon 02-20 Thyroid Stim. Hormone 3.493 u[IU]/mL Normal 0.46 5-4.68 0 [facility] Comment on above: Performed By: #### B GLU #### [facility] [address] [place] [address] Vancomycinon 03-09-2022 Vancomycin 12.3 ug/mL Low 15.0-20.0 [facility] Comment on above: Result Comment: . Performed By: #### P T/AP, BMP3, HEMDF #### [facility] [address] [place] [address] Vancomycin Level, Randomon 0 03-09-2022 Interpretation and review of laboratory results Abnormal [facility] Vancomycin 12.3 ug/mL Low 15 - 20 ug/mL [facility] Comment on above: . Test Performed by [facility], [address] [place], [place] [id number] [place] [address] LAB [facility] Basic Metabolic Panelon 02-20 Anion gap [Moles/Vol] 4 mmol/L Normal 3-13 [facility] Comment on above: Performed By: #### P T/AP, BMP3, HEMDF #### [facility] [address] [place] [address] Calcium [Mass/Vol] 8.4 mg/dL Normal 8.4-10.4 [facility] Comment on above: Performed By: #### P T/AP, BMP3, HEMDF #### [facility] [address] [place] [address] CO2 [Moles/Vol] 27 mmol/L Normal 22-30 [facility] Comment on above: Performed By: #### P T/AP, BMP3, HEMDF #### [facility] [address] [place] [address] Creatinine [Mass/Vol] 0.95 mg/dL Normal 0.52-1.25 [facility] Comment on above: Performed By: #### P T/AP, BMP3, HEMDF #### [facility] [address] [facility] [place] [address] GFR/1.73 sq M.predicted among blacks MDRD (S/P/Bld) [Vol rate/Area] 70.0 mL/min/{1.73_m2} Normal >60 [facility] Comment on above: Performed By: #### P T/AP, BMP3, HEMDF #### [facility] [address] [place] [address] GFR/1.73 sq M.predicted among non-blacks MDRD (S/P/Bld) [Vol rate/Area] 60.4 mL/min/{1.73_m2} Normal >60 [facility] Comment on above: Result Comment: KDIG [...] By: #### P T/AP, BMP3, HEMDF #### [facility] [address] [place] [address] Glucose [Mass/Vol] 117 mg/dL High 70-100 [facility] Comment on above: Performed By: #### P T/AP, BMP3, HEMDF #### [facility] [address] [place] [address] Urea nitrogen [Mass/Vol] 16 mg/dL Normal 9-20 [facility] Comment on above: Performed By: #### P T/AP, BMP3, HEMDF #### [facility] [address] [place] [address] Chloride [Moles/Vol] 102 mmol/L Normal 98-107 [facility] Comment on above: Performed By: #### P T/AP, BMP3, HEMDF #### [facility] [address] [place] [address] Potassium [Moles/Vol] 4.5 mmol/L Normal 3.5-5.1 [facility] Comment on above: Performed By: #### P T/AP, BMP3, HEMDF #### [facility] [address] [place] [address] Sodium [Moles/Vol] 133 mmol/L Low 135-145 [facility] Comment on above: Performed By: #### P T/AP, BMP3, HEMDF #### [facility] [address] [place] [address] Anion gap [Moles/Vol] 4 mmol/L 3 - 13 mmol/L [facility] Calcium [Mass/Vol] 8.4 mg/dL 8.4 - 10. 4 mg/dL [facility] Chloride [Moles/Vol] 102 mmol/L 98 - 10 7 mmol/L [facility] CO2 [Moles/Vol] 27 mmol/L 22 - 30 mmol/L [facility] Creatinine [Mass/Vol] 0.95 mg/dL 0.52 - 1.25 mg/dL [facility] EGFR IF NonAfrican Fijian 60.4 mL/min 60 - PINF mL/min [facility] Comment on above: KDIGO guidelines pro vide [...] - 20 mg/dL [facility] Test Performed by [facility], [address] LAB [facility] CBC with Auto Differentialon 03-08-2022 [...] [Mass/Vol] 12.6 g/dL 11.7 - 16 g/dL [facility] Interpretation and review of laboratory results Abnormal [facility] Lymphocytes (Bld) [#/Vol] 0.7 10*3/uL Low 1 - 4.3 10*3/uL [facility] Lymphocytes/100 WBC (Bld) 8.3 % Low 20 - 40 % [facility] MCH (RBC) [Entitic mass] 31.9 pg 26 - 34 pg [facility] MCHC (RBC) [Mass/Vol] 34.3 % 32 - 36 % [facility] MCV (RBC) [Entitic vol] 93.2 fL 79 [...] - 10.7 10*3/uL [facility] Test Performed by [facility], [address] CR Ankle 3+ Views Lefton CR Ankle 3+ Views Left Patient Name: RANDOLPH HUNTER Diagnostic Radiology ACCESSION EXAM DATE/TIME PROCEDURE ORDERING PROVIDER [id number] 03/08/2022 16:53 EDT CR Ankle 3+ Views Left JOHN LEZAMA LOUANN B CPT code 66603 Reason For Exam (CR Ankle 3+ Views [...] arterial atherosclerotic changes. Report Dictated on Workstation: [id number] Final Dictating Physician: HARPER ANTONIO DO, I Signed Date and Time: 03/08/2022 5:15 pm Signed by: HARPER ANTONIO DO, I Transcribed Date and Time: 03/08/2022 5:16 Normal [facility] Complete Urinalysison 2021 Appearance (U) Turbid Abnormal Clear [facility] Comment on above: Result Comment: . Performed By: #### P T/AP, BMP3, HEMDF #### [facility] [address] [place] [address] Bacteria Loaded Abnormal Negative [facility] Comment on above: Result Comment: . Performed By: #### P T/AP, BMP3, HEMDF #### [facility] [address] [place] [address] Bilirubin,Urine Negative Normal Negative [facility] Comment on above: Result Comment: . Performed By: #### P T/AP, BMP3, HEMDF #### [facility] [address] [place] [address] Color (U) Light-Yellow Normal Lt. Yellow [facility] Comment on above: Result Comment: . Performed By: #### P T/AP, BMP3, HEMDF #### [facility] [address] [place] [address] Glucose Ql (U) Normal Normal Normal (<70) [facility] Comment on above: Result Comment: . Performed By: #### P T/AP, BMP3, HEMDF #### [facility] [address] [place] [address] Ketone,Urine Negative Normal Negative [facility] Comment on above: Result Comment: . Performed By: #### P T/AP, BMP3, HEMDF #### [facility] [address] [place] [address] Leukocytes,Urine 500 Elvi/uL Abnormal Negative [facility] Comment on above: Result Comment: . Performed By: #### P T/AP, BMP3, HEMDF #### [facility] [address] [place] [address] Mucous Threads Few Normal Negative [facility] Comment on above: Result Comment: . Performed By: #### P T/AP, BMP3, HEMDF #### [facility] [address] [place] [address] Nitrites,Urine Positive Abnormal Negative [facility] Comment on above: Result Comment: . Performed By: #### P T/AP, BMP3, HEMDF #### [facility] [address] [place] [address] Non-Squamous Epithelial < 1 Abnormal Negative [facility] Comment on above: Result Comment: . Performed By: #### P T/AP, BMP3, HEMDF #### [facility] [address] [place] [address] Occult Blood,Urine 0.06 mg/dL Abnormal Negative [facility] Comment on above: Result Comment: . Performed By: #### P T/AP, BMP3, HEMDF #### [facility] [address] [place] [address] pH,Urine 6.0 Normal 5.0-8.0 [facility] Comment on above: Result Comment: . Performed By: #### P T/AP, BMP3, HEMDF #### [facility] [address] [place] [address] Protein (U) [Mass/Vol] 20 mg/dL Abnormal Negative [facility] Comment on above: Result Comment: . Performed By: #### P T/AP, BMP3, HEMDF #### [facility] [address] [place] [address] RBC, Urine 3 - 5 Abnormal 0-2 [facility] Comment on above: Result Comment: . Performed By: #### P T/AP, BMP3, HEMDF #### [facility] [address] [place] [address] Specific [place],Urine 1.014 Normal 1.005 - 1.030 [facility] Comment on above: Result Comment: . Performed By: #### P T/AP, BMP3, HEMDF #### [facility] [address] [place] [address] Squamous Epithelial 0 - 2 Normal 3-5 [facility] Comment on above: Result Comment: . Performed By: #### P T/AP, BMP3, HEMDF #### [facility] [address] [place] [address] Urobilinogen,Urine Normal Normal Normal (0-1) [facility] Comment on above: Result Comment: . Performed By: #### P T/AP, BMP3, HEMDF #### [facility] [address] [place] [address] WBC, Urine 51 - 100 Abnormal 0-5 [facility] Comment on above: Result Comment: . Performed By: #### P T/AP, BMP3, HEMDF #### [facility] [address] [place] [address] ED Provider Noteon ED Provider Note SHB [...] she did have a fall at her [facility] living this morning but did not hit her [...] mouth daily CALCIUM CARBONATE 600MG W/ VITAMIN [id number] Med cyanocobalamin 1000 MCG/ML injection Inject 1,000 [...] Response: Oriented Best Motor Response: Obeys commands [place] Coma Scale Score: 15 PHYSICAL EXAM (up to 7 for level 4, 8 or more for level 5) ED Triage Vitals BP Temp Temp Source Heart Rate Resp SpO2 Height Weight 03/08/22 1149 03/08/22 1149 03/08/22 1149 03/08/22 11403/08/22 11403/08/22 11403/08/22201403/08/22 1149 (!) 93/56 99.3 ?F (37.4 ?C) Oral 78 18 95 % 5' 5" (1.651 m) 213 lb (96.6 kg) Physical Exam Kaycee (more content not included)... Normal [facility] Glucose,Bedsideon 03-08-2022 Glucose [Mass/Vol] 112 mg/dL High 70-100 [facility] Comment on above: Result Comment: Test performed by glucose meter. Results may be 10%-15% lower than serum/plasma values. (CLIA ID [id number]) Performed By: #### P T/AP, BMP3, HEMDF #### [facility] [address] [place] [address] Glucose [Mass/Vol] 81 mg/dL Normal 70-100 [facility] Comment on above: Result Comment: Test performed by glucose meter. Results may be 10%-15% lower than serum/plasma values. (CLIA ID [id number]) Performed By: #### P T/AP, BMP3, HEMDF #### [facility] [address] [place] [address] Hemogram w/ Autodiffon 03-08 Abs Baso Cnt 0.0 10*3/uL Normal 0.0-0.2 [facility] Comment on above: Performed By: #### P T/AP, BMP3, HEMDF #### [facility] [address] [place] [address] Abs Neutrophile Cnt 7.5 10*3/uL High 1.8-7.0 [facility] Comment on above: Performed By: #### P T/AP, BMP3, HEMDF #### [facility] [address] [place] [address] Basophils/100 WBC (Bld) 0.1 % Normal 0.0-2.0 [facility] Comment on above: Performed By: #### P T/AP, BMP3, HEMDF #### [facility] [address] [place] [address] Eosinophils (Bld) [#/Vol] 0.0 10*3/uL Normal 0.0-0.5 [facility] Comment on above: Performed By: #### P T/AP, BMP3, HEMDF #### [facility] [address] [place] [address] Eosinophils/100 WBC (Bld) 0.2 % Low 1.0-6.0 [facility] Comment on above: Performed By: #### P T/AP, BMP3, HEMDF #### [facility] [address] [place] [address] Erythrocyte distribution width (RBC) [Ratio] 14.1 % Normal 11.5-14.5 [facility] Comment on above: Performed By: #### P T/AP, BMP3, HEMDF #### [facility] [address] [place] [address] Granulocytes/100 WBC (Bld) 86.4 % High 40.0-80.0 [facility] Comment on above: Performed By: #### P T/AP, BMP3, HEMDF #### [facility] [address] [place] [address] Hematocrit (Bld) [Volume fraction] 36.9 % Normal 35.0-47.0 [facility] Comment on above: Performed By: #### P T/AP, BMP3, HEMDF #### [facility] [address] [place] [address] Hemoglobin (Bld) [Mass/Vol] 12.6 g/dL Normal 11.7-16.0 [facility] Comment on above: Performed By: #### P T/AP, BMP3, HEMDF #### [facility] [address] [place] [address] Lymphocytes (Bld) [#/Vol] 0.7 10*3/uL Low 1.0-4.3 [facility] Comment on above: Performed By: #### P T/AP, BMP3, HEMDF #### [facility] [address] [place] [address] Lymphocytes/100 WBC (Bld) 8.3 % Low 20.0-40.0 [facility] Comment on above: Performed By: #### P T/AP, BMP3, HEMDF #### [facility] [address] [place] [address] MCH (RBC) [Entitic mass] 31.9 pg Normal 26.0-34.0 [facility] Comment on above: Performed By: #### P T/AP, BMP3, HEMDF #### [facility] [address] [place] [address] MCHC 34.3 % Normal 32.0-36.0 [facility] Comment on above: Performed By: #### P T/AP, BMP3, HEMDF #### [facility] [address] [place] [address] MCV (RBC) [Entitic vol] 93.2 fL Normal 79.0-98.0 [facility] Comment on above: Performed By: #### P T/AP, BMP3, HEMDF #### [facility] [address] [place] [address] Monocytes (Bld) [#/Vol] 0.4 10*3/uL Normal 0.0-0.8 [facility] Comment on above: Performed By: #### P T/AP, BMP3, HEMDF #### [facility] [address] [place] [address] Monocytes/100 WBC (Bld) 5.0 % Normal 2.0-10.0 [facility] Comment on above: Performed By: #### P T/AP, BMP3, HEMDF #### [facility] [address] [place] [address] Platelet mean volume (Bld) [Entitic vol] 8.9 fL Normal 7.4-12.4 [facility] Comment on above: Result Comment: MPV is a calculated measurement using platelet volume ratio. Performed By: #### P T/AP, BMP3, HEMDF #### [facility] [address] [place] [address] Platelets (Bld) [#/Vol] 132 10*3/uL Low 140-440 [facility] Comment on above: Performed By: #### P T/AP, BMP3, HEMDF #### [facility] [address] [place] [address] RBC (Bld) [#/Vol] 3.96 10*6/uL Normal 3.80-5.20 [facility] Comment on above: Performed By: #### P T/AP, BMP3, HEMDF #### [facility] [address] [place] [address] WBC (Bld) [#/Vol] 8.7 10*3/uL Normal 3.6-10.7 [facility] Comment on above: Performed By: #### P T/AP, BMP3, HEMDF #### [facility] [address] [place] [address] Lactate, Sepsison 03-08-2022 Lactate [Moles/Vol] 1.7 mmol/L 0.7 - 2 mmol/L [facility] Test Performed by [facility], [address] [place] [address] [facility] Lactic Acid, Sepsison 2021 Lactate [Moles/Vol] 1.7 mmol/L Normal 0.7-2.0 [facility] Comment on above: Performed By: #### P T/AP, BMP3, HEMDF #### [facility] [address] [place] [address] POCT GlucoseOrdered By: Jossy Moncada on 03-08-2022 Glucose [Mass/Vol] 112 mg/dL High 70 - 100 mg/dL [facility] Work Phone: Comment on above: Test performed by ucose meter. Results may be 10%-15% lower than serum/plasma values. (CLIA ID [id number]) Interpretation and review of laboratory results Abnormal [facility] Work Phone: [facility] Work Phone: POCT Glucoseon 03-08-2022 Test Performed by [facility], [address], [place], [place] [id number] [place] [address] LAB Test Performed by [facility], [address], [place], [place] [id number] [place] [address] LAB POCT GlucoseOrdered By: Yaakov Whitehead on 03-08-2022 Glucose [Mass/Vol] 81 mg/dL 70 - 100 mg/dL [facility] Work Phone: Comment on above: Test performed by gl ucose meter. Results may be 10%-15% lower than serum/plasma values. (CLIA ID [id number]) [facility] Work Phone: Prothrombin Timeon INR 2.3 High 0.9-1.1 [facility] Comment on above: Result Comment: Rajiv [...] By: #### P T/AP, BMP3, HEMDF #### [facility] [address] [place] [address] PT Coag (PPP) [Time] 23.8 s High 9.0-12.0 [facility] [employer] Comment on above: Result Comment: . Performed By: #### P T/AP, BMP3, HEMDF #### [facility] [address] [place] [address] Protime-INRon 03-08-2022 INR Coag (Bld) [Relative time] 2.3 {INR} High [facility] Comment on above: Recommended Anticoag ulant [...] 23.8 s High 9 - 12 s [facility] Comment on above: . Test Performed by [facility], [address], [place], [place] [address] [facility] Urinalysison 03-08-2022 Appearance (U) Turbid [...] /[HPF] [facility] Comment on above: . Specific [place], Urine 1.014 [facility] Comment on above: . Squam Epithel, UA 0-2 3 - 5 /[HPF] [facility] Comment on above: . Urobilinogen, Urine Normal Normal (0-1) mg/dL [facility] Comment on above: . WBC, UA /[HPF] Abnormal 0 - 5 /[HPF] [facility] Comment on above: . Test Performed by [facility], [address] [place], [place], [place] [id number] [place] [address] LAB [facility] XR ANKLE LEFT (MIN 3 VIEWS)o n 03-08-2022 Patient Name: RANDOLPH HUNTER Diagnostic Radiology ACCESSION EXAM DATE/TIME PROCEDURE ORDERING PROVIDER [id number] 03/08/2022 16:53 EDT CR Ankle 3+ Views Left JOHN LEZAMA LOUANN B CPT code 31843 Reason For Exam (CR Ankle 3+ Views [...] arterial atherosclerotic changes. Report Dictated on Workstation: [id number] --- Final --- Dictating Physician: HARPER ANTONIO DO, I Signed Date and Time: 03/08/2022 5:15 pm Signed by: HARPER ANTONIO DO, I Transcribed Date and Time: 03/08/2022 5:16 [facility] Harper Antonio DO - 03/08/2022 Patient Name: RANDOLPH HUNTER Diagnostic Radiology ACCESSION EXAM DATE/TIME PROCEDURE ORDERING PROVIDER [id number] 03/08/2022 16:53 EDT CR Ankle 3+ Views Left JOHN LEZAMA LOUANN B CPT code 53563 Reason For Exam (CR Ankle 3+ Views [...] I Transcribed Date and Time: 03/08/2022 5:16 [facility] Work Phone: Radiology Study observation (narrative) [facility] Work Phone: XR ANKLE LEFT (MIN 3 VIEWS)O rdered By: Harper Antonio on 03-08-2022 [facility] Work Phone: PT panel Coag (PPP)on 2021 INR Coag (Bld) [Relative time] 2.3 (EXT) 2.0 - 3.0 [facility] INRon 10-29-2021 INR Coag (Bld) [Relative time] [facility] PT panel Coag (PPP)on 2021 INR Coag (Bld) [Relative time] 2.1 {INR} [facility] DXA-AXIAL SKELETONon 022 [facility] PT panel Coag (PPP)on 2021 INR Coag (Bld) [Relative time] 2.1(EXT) 2.0 - 3.0 [facility] PT panel Coag (PPP)on 2021 INR Coag (Bld) [Relative time] 2.6(EXT) 2.0 - 3.0 [facility] PT panel Coag (PPP)on 2021 INR Coag (Bld) [Relative time] 2.2 (ext) [facility] Basophil percentageon 2021 Bilirubin [Mass/Vol] 0.40 mg/dL 0.20-1.00 [facility] Work Phone: Comment on above: For patients on eltr ombopag therapy, use of Dimension [place] TBIL is not recommended. Cholesterol [Mass/Vol] 142 mg/dL <200 [facility] Comment on above: <200 mg/dL Desirable 200-240 mg/dL Borderline >240 mg/dL High Risk Protein [Mass/Vol] 7.5 g/dL 6.4-8.2 [facility] Work Phone: Triglyceride [Mass/Vol] 156 mg/dL [facility] Comment on above: The drugs N-Acetylcy steine and Metamizole may falsely depress this assay.Serum Triglycerides Reference Interval Normal <150 mg/dL Borderline high 150 - 199 mg/dL High 200 - 499 mg/dL Very High > or = 500 mg/dL Direct bilirubinon 2 Bilirubin.direct [Mass/Vol] 0.12 mg/dL 0.00-0.30 [facility] Work Phone: LIPID PANEL (EXTERNAL)on HDC-L 41 mg/dL 41 mg/dL [facility] LDL Chol, calculated 31 MG/DL 130 MG/DL [facility] - Chemistry and C hemistry - challengeon 09-16-2021 ALP [Catalytic activity/Vol] 58 U/L 45-117 [facility] Work Phone: ALT [Catalytic activity/Vol] 18 U/L 13-56 [facility] Work Phone: Globulin (S) [Mass/Vol] 4.1 g/dL 2.2-4.2 [facility] Work Phone: MICROALBUMIN/CREATININE UR W RATIO (EXTERNAL)on 09-16-2021 Albumin/Creat Ratio 9.4 [facility] Creatinine Urine 158 [facility] Microalbumin, Random urine 14.9 [facility] No Panel Informationon 09-16 Urine Microalbumin/Creatini ne Ratio 9.4 mg/g CRE <30 [facility] Work Phone: Serum or plasma albumin aura urement (mass/volume)on 09-16-2021 Albumin [Mass/Vol] 3.4 g/dL 3.2-5.0 [facility] Work Phone: Serum or plasma cholesterol in HDL measurement (mass/volume)on 09-16-2021 Cholesterol in HDL [Mass/Vol] 41 mg/dL [facility] Work Phone: Comment on above: The drugs N-Acetylcy steine and Metamizole may falsely depress this assay. Reference Range HDL <40 mg/dL Low HDL Cholesterol HDL >or= 60 mg/dL High HDL Cholesterol Serum or plasma cholesterol in VLDL measurement (mass/volume)on 09-16-2021 Cholesterol in VLDL [Mass/Vol] 31 mg/dL 5-40 [facility] Work Phone: Serum or plasma low density lipoprotein (LDL) cholesterol measurement (mass/volume)on 09-16-2021 Cholesterol in LDL [Mass/Vol] 70 mg/dL 0-130 [facility] Work Phone: Thin prep Papanicolaou smear with manual screeningon 09-16-2021 Thin prep Papanicolaou smear with manual screening 22 U/L 15-37 [facility] Work Phone: Thin prep Papanicolaou smear with manual screening 14.9 mg/L NO RANGE EST. [facility] Work Phone: Urine creatinine measurement (mass/volume)on 09-16-2021 Creatinine (U) [Mass/Vol] 158.00 mg/dL NO RANGE EST. [facility] Work Phone: PT panel Coag (PPP)on 2021 INR Coag (Bld) [Relative time] 1.9 (EXT) 2.0 - 3.0 [facility] XR Shoulder - right 3 Viewso n 01-29-2021 IMPRESSION: 1. Stable mild acromioclavicular degenerative changes. Pattern Drafter: CEM Transcribe Date/Time: Jan 29 2021 2:19P Dictated by : MIN GARCIA MD This examination was interpreted and the report reviewed and electronically signed by: MIN GARCIA MD on Jan 29 2021 2:21PM [facility] DIVISION OF RADIOLOGY * * *Final Report* [...] mild hypertrophic osteoarthrosis. DIVISION OF RADIOLOGY Provider, [facility] - 01/29/2021 * * *Final Report* [...] IMPRESSION: 1. Stable mild acromioclavicular degenerative changes. Pattern Drafter: CEM Transcribe Date/Time: Jan 29 2021 2:19P Dictated by : MIN GARCIA MD This examination was interpreted and the report reviewed and electronically signed by: MIN GARCIA MD on Jan 29 2021 2:21PM EST [facility] Radiology Study observation (narrative) [facility] XR Shoulder - right 3 ViewsO rdered By: Cc Provider on 01-29-2021 [facility] CNOVon 08-12-2017 CNOV Office Visit (AGCARDWST) -------RANDOLPH HUNTER ([id number]) 1950 FDate Time Provider Department08/12/17 1:00 PM [...] - metBeta nisha for ASHD with prior NH or prior LVEFANDlt;40 (NQF 0070) - metBeta [...] with treatment plan.This note was generated using [employer] voice recognition system, and there may besome incorrect words, spellings, and punctuation that were not noted inchecking the note before saving.DIAGNOSIS FOR VISIT:ASHDHypertensionHISTOR Y OF PRESENT ILLNESSCyviji Hunter returns for follow-up of multiple cardiac issues, as noted above.She reports stable exercise tolerance. She has used no nitroglycerin since lastvisit. She was hospitalized with pneumonia over the winter. She's had minimaledema. She denies syncope, TIAs, amaurosis and claudication. She's had minimalpalpitations.ALLERGIE S:ALLERGIESAllergen Reactions- Phenergan Vc [Prome* Mental Status Change- [...] mouth once daily.Take on empty stomach. For ThyroidHYDROcodone-acetamino phen (NORCO) 5-325 mg per tablet Take 1 [...] daily. Rinse mouth after use.blood sugar diagnostic ([employer]CH ULTRA TEST) test strip Use as instructed [...] of metoprolol.Electronically Signed:David Erwin MDFebruary 2017 1:17 [facility]: Lin Ashley MD 08/12/2017 1:17 PM SignedLIFESTYLE [...] programs in your area.Referring Provider: DAVID ERWIN [[id number]]Allergies As of Date: 08/12/2017 Noted Allergy ReactionPHENERGAN VC (PROMETHAZINE-PHENYL* 005 1 - Mental Status ChangeCIPROFLOXACIN 11/04/2010 2 [...] [I10]Order(s):metoprolol succinate ER (TOPROL XL) 100 mg [id number] 1 tablet by mouth once daily.Disp: 90 [...] SmartForms filed during this visit:Extended VitalsEncounter Number: [id number] Status:Closed by DAVID ERWIN MD on 08/12/17 [facility] PROGRESSon 08-12-2017 PROGRESS HNO ID: [id number] thor: Dvaid Raya: (none)Author Type: PhysicianType: Progress NotesFiled: 08/12/2017 [...] - metBeta nisha for ASHD with prior NH or prior LVEF<40 (NQF 0070) - metBeta nisha for HF with prior LVEF<40 (NQF 0083) - metACE-I or ARB for ASHD with DM or prior LVEF<40 (NQF 0066) - metStatin therapy for ASHD or FHL or DM - declinedBMI documented and plan if >25 (NQF 0421) - lifestyle recommendation formTobacco use screening and referral (NQF 0028) - lifestyle recommendationformRecommenda tion for whole food, plant based diet - [...] with treatment plan.This note was generated using [employer] voice recognition system, and theremay be some incorrect words, spellings, and punctuation that were notnoted in checking the note before saving.DIAGNOSIS FOR VISIT:ASHDHypertensionHISTOR Y OF PRESENT ILLNESSRandolph Hunter returns for follow-up of multiple cardiac issues, as notedabove.She reports stable exercise tolerance. She has used no nitroglycerin sincelast visit. She was hospitalized with pneumonia over the winter. She's hadminimal edema. She denies syncope, TIAs, amaurosis and claudication. She'shad minimal palpitations.ALLERGIES:ALLER GIESAllergen Reactions- Phenergan Vc [Prome* Mental Status Change- [...] mouth oncedaily. Take on empty stomach. For ThyroidHYDROcodone-acetamino phen (NORCO) 5-325 mg per tablet Take 1 tablet bymouth every 6 hours as needed for up to 30 days.Earliest Fill Date:2/19/18buPROPion SR (ZYBAN SR; WELLBUTRIN SR) 150 mg [...] daily. Rinse mouth after use.blood sugar diagnostic ([employer] ULTRA TEST) test strip Use as instructed3 [...] of metoprolol.Electronically Signed:David Erwin MDFebruary 2017 1:17 [facility]: Vishnu Coleman MD [facility] OBSOLETEon 04-06-2017 OBSOLETE Refill (AGCARDWST) -------RANDOLPH HUNTER ([id number]) 1950 FDate Time Provider Eroidbvdla83/16/17 DAVID ERWIN During your visit today, we recorded the following information about you:Gui Gallego RN, RN 04/06/2017 1:59 PM SignedPatient phones requesting refills as follows:Pending Prescriptions Disp Refills METOPROLOL SUCCINATE ER 50 MG TABLET,EXTENDED RELEASE 24 HR 135 tablet 3 Sig: Take 1.5 tablets by mouth once daily. IRA: No Please review and advise.Gui Reena Feng has been identified by name and date [...] Date: 04/06/2017 Noted Allergy ReactionPHENERGAN VC (PROMETHAZINE-PHENYL* 005 1 - Mental Status ChangeCIPROFLOXACIN 11/04/2010 2 [...] Status:Closed by GUI GALLEGO on 04/06/17 Normal [facility] Vital Signs Date Time Vital Sign Value Performing Clinician Zack goncalves 10-10-2024 13:29-0400 Body temperature 96.8 [degF] Travis Patterson APRN.HOT DIPPER Work Phone: [facility] 10-10-2024 13:29-0400 Diastolic blood pressure 57 mm[Hg] Travis Patterson APRN.HOT DIPPER Work Phone: [facility] 10-10-2024 13:29-0400 Heart rate 66 /min Travis Patterson APRN.HOT DIPPER Work Phone: [facility] 10-10-2024 13:29-0400 Respiratory rate 16 /min Travis Patterson APRN.HOT DIPPER Work Phone: [facility] 10-10-2024 13:29-0400 SaO2% (BldA) [Mass fraction] 97 % Travis Patterson APRN.HOT DIPPER Work Phone: [facility] 10-10-2024 13:29-0400 Systolic blood pressure 120 mm[Hg] Travis Patterson APRN.HOT DIPPER Work Phone: [facility] 10-05-2024 16:09-0400 Body temperature 97.81 [degF] Travis Patterson APRN.HOT DIPPER Work Phone: [facility] 10-05-2024 16:09-0400 Diastolic blood pressure 71 mm[Hg] Travis Helbert HEATING AND VENTILATING DRAFTER.HOT DIPPER Work Phone: [facility] 10-05-2024 16:09-0400 Heart rate 64 /min Travis Helbert HEATING AND VENTILATING DRAFTER.HOT DIPPER Work Phone: [facility] 10-05-2024 16:09-0400 Respiratory rate 19 /min Travis Helbert HEATING AND VENTILATING DRAFTER.HOT DIPPER Work Phone: [facility] 10-05-2024 16:09-0400 SaO2% (BldA) [Mass fraction] 96 % Travis Helbert HEATING AND VENTILATING DRAFTER.HOT DIPPER Work Phone: [facility] 10-05-2024 16:09-0400 Systolic blood pressure 122 mm[Hg] Travis Helbert HEATING AND VENTILATING DRAFTER.HOT DIPPER Work Phone: [facility] 09-30-2024 13:29-0400 Body temperature 97.3 [degF] Travis Helbert HEATING AND VENTILATING DRAFTER.HOT DIPPER Work Phone: [facility] 09-30-2024 13:29-0400 Diastolic blood pressure 64 mm[Hg] Travis Helbert HEATING AND VENTILATING DRAFTER.HOT DIPPER Work Phone: [facility] 09-30-2024 13:29-0400 Heart rate 69 /min Travis Helbert HEATING AND VENTILATING DRAFTER.HOT DIPPER Work Phone: [facility] 09-30-2024 13:29-0400 Respiratory rate 18 /min Travis Helbert HEATING AND VENTILATING DRAFTER.HOT DIPPER Work Phone: [facility] 09-30-2024 13:29-0400 SaO2% (BldA) [Mass fraction] 97 % Travis Helbert HEATING AND VENTILATING DRAFTER.HOT DIPPER Work Phone: [facility] 09-30-2024 13:29-0400 Systolic blood pressure 124 mm[Hg] Travis Helbert HEATING AND VENTILATING DRAFTER.HOT DIPPER Work Phone: [facility] 07-09-2024 23:24-0500 Diastolic blood pressure 66 mm[Hg] BETY Jha MD Work Phone: [facility] 07-09-2024 23:24-0500 Heart rate 96 /min BETY Jha MD Work Phone: [facility] 07-09-2024 23:24-0500 Respiratory rate 20 /min BETY Jha MD Work Phone: [facility] 07-09-2024 23:24-0500 SaO2% (BldA) [Mass fraction] 98 % BETY Jha MD Work Phone: [facility] 07-09-2024 23:24-0500 Systolic blood pressure 99 mm[Hg] BETY Jha MD Work Phone: [facility] 07-09-2024 23:21-0500 Body height 157.5 cm BETY Jha MD Work Phone: [facility] 07-09-2024 23:21-0500 Body mass index (BMI) [Ratio] 39.14 kg/m2 BETY Jha MD Work Phone: [facility] 07-09-2024 23:21-0500 Body temperature 98.4 [degF] BETY Jha MD Work Phone: [facility] 07-09-2024 23:21-0500 Body weight 97.07 kg BETY Jha MD Work Phone: [facility] 02-10-2024 10:43-0400 Body temperature 97.7 [degF] Isaac Brian DO Work Phone: [facility] 01-27-2024 12:59-0400 Body temperature 97.11 [degF] Isaac Brian DO Work Phone: [facility] 01-27-2024 12:59-0400 Diastolic blood pressure 76 mm[Hg] Isaac Brian DO Work Phone: [facility] 01-27-2024 12:59-0400 Heart rate 72 /min Isaac Brian DO Work Phone: [facility] 01-27-2024 12:59-0400 Respiratory rate 18 /min Isaac Brian DO Work Phone: [facility] 01-27-2024 12:59-0400 Systolic blood pressure 126 mm[Hg] Isaac Chicas DO Work Phone: [facility] 01-20-2024 14:26-0400 Body height 157.5 cm Isaac Chicas DO Work Phone: [facility] 01-20-2024 14:26-0400 Body mass index (BMI) [Ratio] 38.96 kg/m2 Isaac Chicas DO Work Phone: [facility] 01-20-2024 14:26-0400 Body temperature 97.2 [degF] Isaac Chicas DO Work Phone: [facility] 01-20-2024 14:26-0400 Body weight 96.62 kg Isaac Chicas DO Work Phone: [facility] 01-20-2024 14:26-0400 Diastolic blood pressure 70 mm[Hg] Isaac Chicas DO Work Phone: [facility] 01-20-2024 14:26-0400 Heart rate 79 /min Isaac Chicas DO Work Phone: [facility] 01-20-2024 14:26-0400 Respiratory rate 18 /min Isaac Chicas DO Work Phone: [facility] 01-20-2024 14:26-0400 Systolic blood pressure 112 mm[Hg] Isaac Hancocke DO Work Phone: [facility] 12-15-2023 22:15-0400 Diastolic blood pressure 57 mm[Hg] Gloriajasvir Bangura DO Work Phone: [employer] 12-15-2023 22:15-0400 Heart rate 64 /min Gloria Willem DO Work Phone: [facility] 12-15-2023 22:15-0400 Respiratory rate 16 /min Gloria Willem DO Work Phone: [facility] 12-15-2023 22:15-0400 SaO2% (BldA) [Mass fraction] 98 % Gloria Willem DO Work Phone: [facility] 12-15-2023 22:15-0400 Systolic blood pressure 137 mm[Hg] Gloria Bangura DO Work Phone: [facility] 12-15-2023 18:24-0400 Body height 165.1 cm Gloria Bangura DO Work Phone: [facility] 12-15-2023 18:24-0400 Body mass index (BMI) [Ratio] 35.45 kg/m2 Gloriajasvir Bangura DO Work Phone: [facility] 12-15-2023 18:24-0400 Body temperature 97.3 [degF] Gloriajasvir Bangura DO Work Phone: [facility] 12-15-2023 18:24-0400 Body weight 96.62 kg Gloriajasvir Bangura DO Work Phone: [facility] 07-20-2023 06:46-0500 Diastolic blood pressure 67 mm[Hg] Cuba Anna MD Work Phone: [facility] 07-20-2023 06:46-0500 Heart rate 63 /min Cuba Anna MD Work Phone: [facility] 07-20-2023 06:46-0500 Respiratory rate 16 /min Cuba Anna MD Work Phone: [facility] 07-20-2023 06:46-0500 SaO2% (BldA) [Mass fraction] 97 % Cuba Anna MD Work Phone: [facility] 07-20-2023 06:46-0500 Systolic blood pressure 148 mm[Hg] Cuba Anna MD Work Phone: [facility] 07-19-2023 18:50-0500 Body height 157.5 cm Cuba Anna MD Work Phone: [facility] 07-19-2023 18:50-0500 Body mass index (BMI) [Ratio] 43.71 kg/m2 Cuba Anna MD Work Phone: [facility] 07-19-2023 18:50-0500 Body temperature 98.01 [degF] Cuba Anna MD Work Phone: [facility] 07-19-2023 18:50-0500 Body weight 108.41 kg Cuba Anna MD Work Phone: [facility] 09-06-2022 10:13-0400 Diastolic blood pressure 75 mm[Hg] Linden Fuentes MD Work Phone: [facility] 09-06-2022 10:13-0400 Heart rate 69 /min Linden Fuentes MD Work Phone: [facility] 09-06-2022 10:13-0400 Respiratory rate 15 /min Linden Fuentes MD Work Phone: [facility] 09-06-2022 10:13-0400 SaO2% (BldA) [Mass fraction] 100 % Linden Fuentes MD Work Phone: [facility] 09-06-2022 10:13-0400 Systolic blood pressure 143 mm[Hg] Linden Fuentes MD Work Phone: [facility] 09-06-2022 05:33-0400 Body temperature 98.2 [degF] Linden Fuentes MD Work Phone: [facility] 03-12-2022 19:37-0400 Body temperature 98.71 [degF] BETY Jha MD Work Phone: [facility] 03-12-2022 19:37-0400 Diastolic blood pressure 68 mm[Hg] BEYT Jha MD Work Phone: [facility] 03-12-2022 19:37-0400 Heart rate 73 /min BETY Jha MD Work Phone: [facility] 03-12-2022 19:37-0400 Respiratory rate 16 /min BETY Jha MD Work Phone: [facility] 03-12-2022 19:37-0400 SaO2% (BldA) [Mass fraction] 97 % EBTY Jha MD Work Phone: [facility] 03-12-2022 19:37-0400 Systolic blood pressure 151 mm[Hg] BETY Jha MD Work Phone: [facility] 03-08-2022 20:15-0400 Body height 165.1 cm BETY Jha MD Work Phone: [facility] 03-08-2022 11:49-0400 Body mass index (BMI) [Ratio] 35.45 kg/m2 BETY Jha MD Work Phone: [facility] 03-08-2022 11:49-0400 Body weight 96.62 kg BETY Jha MD Work Phone: [facility] 09-26-2021 11:23-0400 Body weight 99.34 kg Baudilio Sultana MD Work Phone: [facility] 09-26-2021 11:23-0400 Diastolic blood pressure 72 mm[Hg] Baudilio Sultana MD Work Phone: [facility] 09-26-2021 11:23-0400 Heart rate 68 /min Baudilio Sultana MD Work Phone: [facility] 09-26-2021 11:23-0400 Systolic blood pressure 142 mm[Hg] Baudilio Sultana MD Work Phone: [facility] Encounters Encounter Date Encounter Type Care Provider Facility Start: 04-05-2025 ambulatory [facility] Facility:[facility] Start: 03-21-2025 ambulatory [facility] Facility:[facility] Start: 03-21-2025 [facility] Start: 03-20-2025 End: 03-20-2025 ambulatory [facility] Facility:[facility] Start: 03-08-2025 ambulatory [facility] Facility:[facility] Start: 03-08-2025 [facility]istered [facility] Start: 03-02-2025 ambulatory [facility] Facility:[facility] Start: 03-02-2025 Registered Referred Min Ch Eduardo [facility] Start: 02-21-2025 ambulatory [facility] Facility:[facility] Start: 02-21-2025 Registered Referred Min Ch Eduardo [facility] Start: 02-13-2025 End: 02-13-2025 ambulatory GILMER COTTON Facility:[facility] Start: 02-07-2025 ambulatory Min ALBRECHT Facil ity:[facility] Start: 02-07-2025 Registered Referred Min Marroquin MD [facility] Start: 02-01-2025 ambulatory Min ALBRECHT Facil ity:[facility] Start: 02-01-2025 Registered Referred Min Marroquin MD [facility] Start: 01-31-2025 ambulatory Min ALBRECHT Facil ity:[facility] Start: 01-31-2025 Registered Referred Min Marroquin MD [facility] Start: 01-24-2025 ambulatory Min ALBRECHT Facil ity:[facility] Start: 01-24-2025 Registered Referred Min Marroquin MD [facility] Start: 01-17-2025 ambulatory Min ALBRECHT Facil ity:[facility] Start: 01-17-2025 Registered Referred Min Marroquin MD [facility] Start: 01-10-2025 End: 01-10-2025 ambulatory GILMER COTTON Facility:[facility] Start: 01-09-2025 ambulatory Min ALBRECHT Facil ity:[facility] Start: 01-09-2025 Registered Referred Min Marroquin MD [facility] Start: 01-03-2025 End: 01-03-[address] Baudilio Sultana MD Work Phone: [facility] Start: 01-03-2025 End: 01-03-20[facility] Start: 01-03-2025 Registered Referred Min Marroquin MD [facility] Start: 01-02-2025 End: 01-03-2025 ambulatory Min ALBRECHT Facility:[facility] Start: 01-02-2025 Registered Referred Min Marroquin MD [facility] Start: 12-19-2024 End: 12-19-[address] Baudilio Sultana MD Work Phone: [facility] Start: 12-19-2024 End: 12-19-2024 [facility] Start: 12-19-2024 Registered Referred Min Marroquin MD [facility] Start: 12-19-2024 End: 12-19-2024 ambulatory Baudilio Sultana Facility:[facility] Start: 12-06-2024 End: 12-06-2024 ambulatory GILMER COTTON Facility:[facility] Start: 12-05-2024 End: 12-05-[address] Baudilio Sultana MD Work Phone: [facility] Start: 12-05-2024 End: 12-05-2024 [facility] Start: 12-05-2024 End: 12-05-2024 [facility] Start: 11-09-2024 End: 01-09-2025 Follow-up encounter Steven Pelaez Work Phone: Podiatry Start: 11-08-2024 ambulatory STEVEN Fuentesi ty:[id number] Start: 11-04-2024 End: 11-04-2024 ambulatory RAF CASEY Facility:[facility] Start: 11-01-2024 End: 01-01-2025 Follow-up encounter Steven Pelaez Work Phone: Podiatry Start: 10-27-2024 ambulatory RAF CASEY Facility:[facility] Start: 10-27-2024 End: 10-27-2024 Subsequent hospital visit by physician [facility] Work Phone: Radiology Comment on above: Sprain of left ankle , unspecified ligament, initial encounter [S93.402A] Start: 10-27-2024 End: 10-27-2024 Patient encounter procedure Steven Pelaez Work Phone: Podiatry Comment on above: Sprain of left ankle , unspecified ligament, initial encounter (Primary Dx); Ankle instability, left; Chronic pain of left ankle Start: 10-27-2024 End: 10-27-2024 ambulatory STEVEN PELAEZ Facility:[facility] Start: 10-19-2024 End: 10-19-2024 Patient encounter procedure Mendel Sharma PA-C Work Phone: Orthopaedics Comment on above: Primary osteoarthrit is of left knee (Primary Dx) Start: 10-19-2024 End: 10-19-2024 ambulatory MENDEL SHARMA [facility] [facility] Start: 10-10-2024 End: 10-10-2024 ambulatory Travis Patterson APRAliceHOT DIPPER Work Phone: [facility] Comment on above: Fall at home, initia l encounter (Primary Dx); Cerebral palsy, unspecified type (HCC); Brachial neuritis or radiculitis; Acute pain of right shoulder; Left knee pain, unspecified chronicity; Diabetic polyneuropathy associated with type 2 diabetes mellitus (HCC); Neuropathy; Type 2 diabetes, controlled, with neuropathy (HCC); Atherosclerosis of ely shoshone coronary artery 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; Other pulmonary embolism without acute cor pulmonale, unspecified chronicity (HCC); Debility Start: 10-10-2024 End: 10-10-2024 Telemedicine consultation with patient Travis Patterson APRN.HOT DIPPER Work Phone: [facility] Start: 10-05-2024 End: 10-05-2024 ambulatory Travis Patterson APRN.HOT DIPPER Work Phone: [facility] Comment on above: Fall at home, initia l encounter (Primary Dx); Cerebral palsy, unspecified type (HCC); Brachial neuritis or radiculitis; Acute pain of right shoulder; Left knee pain, unspecified chronicity; Diabetic polyneuropathy associated with type 2 diabetes mellitus (HCC); Type 2 diabetes, controlled, with neuropathy (HCC); Neuropathy; Atherosclerosis of ely shoshone coronary artery 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; Other pulmonary embolism without acute cor pulmonale, unspecified chronicity (HCC); Debility Start: 10-05-2024 End: 10-05-2024 Telemedicine consultation with patient Travis Patterson APRN.HOT DIPPER Work Phone: [facility] Start: 09-30-2024 End: 09-30-2024 ambulatory Travis Patterson APRN.HOT DIPPER Work Phone: [facility] Comment on above: Fall at home, initia l encounter (Primary Dx); Cerebral palsy, unspecified type (HCC); Brachial neuritis or radiculitis; Acute pain of right shoulder; Left knee pain, unspecified chronicity; Diabetic polyneuropathy associated with type 2 diabetes mellitus (HCC); Neuropathy; Type 2 diabetes, controlled, with neuropathy (HCC); Atherosclerosis of ely shoshone coronary artery 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; Other pulmonary embolism without acute cor pulmonale, unspecified chronicity (HCC); Debility Start: 09-30-2024 End: 09-30-2024 Telemedicine consultation with patient Travis Patterson APRN.HOT DIPPER Work Phone: [facility] Start: 09-21-2024 End: 09-21-2024 ambulatory RAF Rascon KYMBERLY Facility:[facility] Start: 09-18-2024 End: 09-28-2024 ambulatory RAF L KYMBERLY Facility:[facility] Start: 09-18-2024 End: 09-18-2024 Emergency department patient visit RAF Rascon KYMBERLY Facility:[facility] Start: 09-02-2024 End: 09-02-2024 ambulatory RAF CASEY Facility:[facility] Start: 08-05-2024 End: 08-05-2024 ambulatory RAF L KYMBERLY Facility:[facility] Start: 07-09-2024 End: 07-09-2024 Subsequent hospital visit by physician [facility] Radiology Comment on above: Arrived Start: 07-09-2024 End: 07-10-2024 Emergency department patient visit Александр Jha MD Work Phone: [facility] ED Comment on above: Acute cough (Primary Dx) Start: 06-30-2024 End: 06-30-2024 ambulatory RAF CASEY Facility:[facility] Start: 05-02-2024 End: 05-02-2024 ambulatory RAF L LI Facility:[facility] Start: 02-10-2024 End: 02-10-2024 Office outpatient visit 10 minutes Isaac Chicas DO Work Phone: [facility] WND [facility]STOMY HBO Comment on above: Pressure ulcer of ri ght foot, stage 3 (HCC) (Primary Dx) Start: 02-10-2024 End: 02-10-2024 ambulatory [facility] Start: 01-27-2024 End: 01-27-2024 Subsequent hospital visit by physician Isaac Chicas DO Work Phone: [facility] WND [facility]STOM[facility] HBO Comment on above: Pressure ulcer of ri ght foot, stage 3 (HCC) (Primary Dx) Start: 01-27-2024 End: 01-27-2024 ambulatory [facility] Start: 01-20-2024 End: 01-20-2024 Office outpatient new 30 minutes Isaac Chicas DO Work Phone: [facility] WND [facility]ST[facility] HBO Comment on above: Pressure ulcer of ri ght foot, stage 3 (HCC) (Primary Dx) Start: 01-20-2024 End: 01-20-2024 ambulatory [facility] Start: 12-15-2023 End: 12-15-2023 Subsequent hospital visit by physician [facility] Radiology Comment on above: Arrived Start: 12-15-2023 End: 12-16-2023 Emergency department patient visit Gloria Bangura DO Work Phone: [facility] ED Comment on above: Diabetic ulcer of le ft foot associated with diabetes mellitus due to underlying condition, unspecified part of foot, unspecified ulcer stage (HCC) (Primary Dx); Left leg cellulitis Start: 07-19-2023 End: 07-19-2023 Subsequent hospital visit by physician [facility] Exam Room [address] [facility] [address] Comment on above: Arrived Start: 07-19-2023 End: 07-19-2023 Emergency department patient visit CUBA ANNA [facility] Start: 07-19-2023 End: 07-20-2023 Emergency department patient visit Cuba Anna MD Work Phone: [facility] ED Comment on above: Frequent falls (Prim liv Dx); Right hip pain; Contusion of right knee, initial encounter; Osteoarthritis, unspecified osteoarthritis type, unspecified site Start: 05-04-2023 Orders Only Chasidy Heredia MA [facility] Start: 09-06-2022 End: 09-07-2022 Emergency department patient visit LINDEN [facility] Start: 09-06-2022 End: 09-06-2022 Subsequent hospital visit by physician [facility] Ed Xr Portable [facility] X-Ray Comment on above: Arrived Start: 09-06-2022 End: 09-06-2022 Emergency department patient visit Linden Fuentes MD Work Phone: [facility] EMERGENCY DEPT Comment on above: Fall, initial encoun ter (Primary Dx) Start: 04-15-2022 Telephone encounter Baudilio Sultana MD Work Phone: [facility] Medicine [place] Comment on above: Insurance Authorizat ion Start: 03-08-2022 End: 03-13-2022 Evaluation and management of inpatient J Candida Jha MD Work Phone: [facility] 1E MED SURG Comment [...] Nursing evaluation of patient and report Nurse/Benigno Count Includes [facility] Work Phone: Podiatry Comment on [...] m caregiver Steven Pelaez Work Phone: [facility] D Start: 02-10-2022 End: 02-10-2022 Subsequent hospital visit by physician Ramos Count Includes [facility] [place] Work Phone: Radiology Comment [...] Baudilio Sultana MD Work Phone: Internal Medicine [facility] Start: 11-26-2021 Telephone encounter Baudilio Sultana MD Work Phone: Internal Medicine [place] Comment on above: Anticoagulation Start: 11-19-2021 Telephone encounter Baudilio Sultana MD Work Phone: Family Medicine [place] Comment on above: Anticoagulation Start: 11-05-2021 Telephone encounter Baudilio Sultana MD Work Phone: [facility] [place] Comment on above: Anticoagulation Start: 10-30-2021 Telephone encounter Baudilio Sultana MD Work Phone: [facility] [place] Comment on above: Anticoagulation Start: 10-15-2021 Telephone encounter Baudilio Sultana MD Work Phone: [facility] [place] Comment on above: Anticoagulation Start: 10-14-2021 ambulatory Baudilio Sultana MD Work Phone: [facility] [place] Comment on above: Question regarding C arotid Dup Dustin OP Start: 10-14-2021 End: 10-14-2021 Subsequent hospital visit by physician Bone Density Count Includes [facility] Work Phone: Radiology Comment on above: Disorder of bone and cartilage [M89.9, M94.9] Start: 10-08-2021 Telephone encounter Baudilio Sultana MD Work Phone: Family [facility] Comment on above: Anticoagulation Refill Request Start: 10-01-2021 Telephone encounter Baudilio Sultana MD Work Phone: [facility] [place] Comment on above: Patient Question; Or ders Anticoagulation Start: 09-27-2021 Telephone encounter Baudilio Sultana MD Work Phone: [facility] [place] Comment on above: Results Start: 09-26-2021 End: 09-26-2021 Patient encounter procedure Baudilio Sultana MD Work Phone: [facility] [place] Comment on above: Cerebral palsy, unsp [...] Telephone encounter Baudilio Sultana MD Work Phone: [facility] [place] Comment on above: Anticoagulation Start: 09-18-2021 Telephone encounter Baudilio Sultana MD Work Phone: [facility] [place] Comment on above: Anticoagulation Start: 09-16-2021 Chart abstracting Baudilio Pretty MD Work Phone: [facility] [place] Start: 09-16-2021 End: 09-16-2021 Patient encounter procedure [facility] Start: 2021 Telephone encounter Baudilio Sultana MD Work Phone: [facility] [place] Comment on above: Anticoagulation Start: 01-29-2021 End: 01-29-2021 Subsequent hospital visit by physician Xr Count Includes [facility] [place] Work Phone: Radiology Comment on above: Chronic right should er pain [M25.511, G89.29] Start: 04-12-2018 Ambulatory DAVID ERWIN Facility :[facility] Start: 08-12-2017 End: 08-12-2017 Ambulatory DAVID ERWIN [facility] Procedures Date Procedure Procedure Detail Performing Clinician Start: 01-03-[address] Rui Sultana MD Work Phone: Start: 01-03-2025 Urnls dip stick/tabl et reagent auto microscopy Dr. Baudilio Sultana MD Work Phone: Start: 10-19-2024 Arthrocentesis aspir &/inj major jt/bursa w/o us Mendel Sharma PA-Randa Work Phone: Start: 07-09-2024 Radiologic exam ches [...] Kushal Ilodi DO Work Phone: Start: 03-12-2022 Iadna-dna/rna gi pth gn multiplex probe tq 12 Rose Goodman MD Work Phone: Start: 03-12-2022 [...] Start: 03-11-2022 POCT COVID-19, ANTIGEN Katya Lezama HEATING AND VENTILATING DRAFTER - HOT DIPPER Work Phone: Start: 03-11-2022 Gluc bld gluc [...] Thyrotropin [Units/v olume] in Serum or Plasma [facility] 1 Start: 03-09-2022 BASIC METABOLIC PANE L W/ REFLEX TO MG FOR LOW K Katya Lezama HEATING AND VENTILATING DRAFTER - HOT DIPPER Work Phone: Start: 03-09-2022 Drug screen quantita tive vancomycin Kushal Gaines DO Work Phone: Start: 03-09-2022 Hemoglobin glycosylated a1c Katya Lezama HEATING AND VENTILATING DRAFTER - HOT DIPPER Work Phone: Start: 03-09-2022 PROTIME/INR & PTT Merritt Lezama HEATING AND VENTILATING DRAFTER - HOT DIPPER Work Phone: Start: 03-08-2022 Gluc bld gluc mntr d ev cleared fda spec home use Александр Jha MD Work Phone: Start: 03-08-2022 End: 03-08-2022 Gluc bld gluc mntr dev cleared fda spec home use Kushal Gaines DO Work Phone: Start: 03-08-2022 Radex ankle complete minimum 3 views Katya Lezama HEATING AND VENTILATING DRAFTER - HOT DIPPER Work Phone: Start: 03-08-2022 BEDSIDE SPIROMETRY Joy Lezama HEATING AND VENTILATING DRAFTER - HOT DIPPER Work Phone: Start: 03-08-2022 Culture bacterial quanttative colony count urine Александр Jha MD Work Phone: Start: 03-08-2022 Urnls dip stick/tabl et rgnt auto w/o microscopy Александр Jha MD Work Phone: Start: 03-08-2022 Basic metabolic pane l calcium total J Candida Jha MD Work Phone: Start: 03-08-2022 Culture bacterial bl ood aerobic w/id isolates J Candida Jha MD Work Phone: Start: 03-08-2022 CULTURE, BLOOD 1 Александр Jha MD Work Phone: Start: 03-08-2022 LACTATE, SEPSIS J Candida Jha MD Work Phone: Start: 11-05-2021 PROTHROMBIN [...] Creatinine measurement Serum Creatin ine [facility] Start: 02-20-2025 Influenza vaccination C [facility] Start: 12-14-2024 Complete blood count Hemoglobin/Jackson tocrit [facility] Start: 12-14-2024 Creatinine measurement Serum Creatin ine [facility] Start: 12-14-2024 Diabetes: Estimated Glomerular Filtration Rate for Kidney Health Diabetes: Estimated Glomerular Filtration Rate for Kidney Health [facility] Start: 12-07-2024 End: 12-07-2024 Patient encounter procedure 12/07/2024 3:40 PM EDT Office Visit Endocrinology [address] [address] Ravi Michael MD [address] [place] [address] Diabetes Endocrinology Comment on above: Diabetes Start: 11-08-2024 End: 11-08-2024 Patient encounter procedure 11/08/2024 11:00 AM EDT Appointment MRI Scan [address] [place] [address] Chronic pain of left ankle [M25.572, G89.29 MRI Scan Comment on above: Chronic pain of left ankle [M25.572, G89.29 Start: 10-27-2024 End: 10-27-2024 Patient encounter procedure 10/27/2024 11:15 AM EDT Office Visit Podiatry [address] [place] [address] Steven Pelaez [address] [place] [address] left foot Podiatry Comment on above: left foot Start: 10-19-2024 End: 10-19-2024 Patient encounter procedure Orthopaedics Comment on above: Cerebral palsy with knee injury unable to stand pivot. Exam negative for laxity and patient going to residential for rehab Cerebral palsy with left knee injury unable to stand pivot Start: 06-22-2024 Advance Directive Discussion Advance Directive Discussion [facility] Start: 06-22-2024 Medicare Advantage Annual Wellness Visit Medicare Advantage Annual Wellness Visit [facility] Start: 02-21-2024 Covid-19 Vaccine ( season) Covid-19 Vaccine ( season) [facility] Start: 02-21-2024 Influenza vaccination S [facility] Start: 02-03-2024 End: 02-03-2024 Patient encounter procedure 02/03/2024 10:00 AM EDT Appointment [facility] [address] [place] [address] Isaac Chicas, DO [address] [place] [address] [facility] Start: 01-27-2024 End: 01-27-2024 Patient encounter procedure 01/27/2024 1:15 PM EDT Appointment [facility] [address] [place] [address] Isaac Chicas, DO [address] [place] [address] [facility] Start: 06-22-2023 Advance Directive Discussion Advance Directive Discussion [facility] Start: 06-22-2023 Medicare Advantage Annual Wellness Visit Medicare Advantage Annual Wellness Visit [facility] Start: 03-09-2023 Hemoglobin A1c measurement Diabetes: Hemoglobin A1C [facility] Start: 03-09-2023 Thyroid stimulating hormone measurement TSH Level [facility] Start: 02-20-2023 Covid-19 Vaccine () Covid-19 Vaccine () [facility] Start: 02-20-2023 COVID-19 Vaccine ( season) COVID-19 Vaccine () [facility] Start: 02-20-2023 Influenza vaccination Influenza Vacc ine (#1) [facility] Start: 01-04-2023 Colonoscopy COLONOSCOPY [facility] Start: 01-04-2023 COLORECTAL CANCER SCREENING COLORECTAL CANCER SCREENING [facility] Start: 01-04-2023 Screening for malign ant neoplasm of colon [facility] Start: 09-26-2022 ANNUAL PCP TEAM KENO TERMINAL OPERATOR DANYELLE DISEASE VISIT ANNUAL PCP TEAM CHRONIC DISEASE VISIT [facility] Start: 09-26-2022 Serum Creatinine Serum Creatinine Cl [facility] Start: 09-16-2022 Hepatitis B screening URINE ALBUMIN:CREATININE RATIO [facility] Start: 09-06-2022 Hemoglobin A1c measurement HbA1C [facility] Start: 09-06-2022 Hemoglobin A1c/Hemoglobin.total in Blood HBA1C [facility] Start: 06-24-2022 ANNUAL PCP TEAM KENO TERMINAL OPERATOR DANYELLE DISEASE VISIT ANNUAL PCP TEAM CHRONIC DISEASE VISIT [facility] Start: 06-22-2022 ADVANCE DIRECTIVE DISCUSSION ADVANCE DIRECTIVE DISCUSSION [facility] Start: 04-18-2022 BP CONTROLLED (<130/80) BP CONTROLLE D (<130/80) [facility] Start: 04-12-2022 COVID-19 Vaccine (4 - Booster) COVID-19 Vaccine (4 - Booster) [facility] Start: 03-13-2022 End: 03-11-2023 Protime-INR Protime-INR Lab Routine PE (pulmonary thromboembolism) (HCC) Expected: 03/13/2022, Expires: 03/11/2023 [facility] Work Phone: Comment on above: Expected: 03/13/2022 , Expires: 03/11/2023 Start: 02-20-2022 Influenza vaccination C [facility] Start: 02-12-2022 Hemoglobin A1c/Hemoglobin.total in Blood HBA1C [facility] Start: 11-09-2021 3 comp foot exam completed DIABETIC FOOT EXAM [facility] Start: 11-09-2021 Diabetic foot examination Diabetic Foot Exam [facility] Start: 11-08-2021 End: 01-08-2022 Thyrotropin [Units/volume] in Serum or Plasma TSH BLD Lab Routine Acquired hypothyroidism Expected: 11/08/2021, Expires: 01/08/2022 [facility] Work Phone: Comment on above: Expected: 11/08/2021 , Expires: 01/08/2022 Start: 09-26-2021 End: 11-26-2021 Comprehensive metabolic 2000 panel - Serum or Plasma [facility] Work Phone: Comment on above: Expected: 09/26/2021 , Expires: 11/26/2021 Start: 09-26-2021 End: 11-26-2021 Thyrotropin [Units/volume] in Serum or Plasma [facility] Work Phone: Comment on above: Expected: 09/26/2021 , Expires: 11/26/2021 Start: 09-26-2021 End: 11-26-2021 VITAMIN B12 BLOOD [facility] Work Phone: Comment on above: Expected: 09/26/2021 , Expires: 11/26/2021 Start: 09-11-2021 Glaucoma screening Dilated Retinal E xam [facility] Start: 09-11-2021 Hepatitis C antibody , confirmatory test DILATED RETINAL EXAM [facility] Start: 08-29-2021 FECAL OCCULT BLOOD FECAL OCCULT BLOO D [facility] Start: 08-29-2021 Screening for malign ant neoplasm of colon Fecal Occult Blood [facility] Start: 08-01-2021 Hemoglobin A1c/Hemoglobin.total in Blood HBA1C [facility] Start: 07-11-2021 Hepatitis B screening URINE ALBUMIN:CREATININE RATIO [facility] Start: 06-22-2021 ADVANCE DIRECTIVE DISCUSSION ADVANCE DIRECTIVE DISCUSSION [facility] Start: 06-16-2021 COVID-19 VACCINE (5 - Booster) COVID-19 VACCINE (5 - Booster) [facility] Start: 03-21-2021 Hepatitis B surface antibody level LDL CHOLESTEROL [facility] Start: 03-29-2019 Mammography [facility] Start: 03-29-2019 Screening for malign ant neoplasm of breast Mammogram Screening [facility] Start: 12-26-2018 ADVANCE DIRECTIVE DISCUSSION ADVANCE DIRECTIVE DISCUSSION [facility] Start: 03-29-2017 DTaP/Tdap/Td Vaccine s (2 - Td or Tdap) DTaP/Tdap/Td Vaccines (2 - Td or Tdap) [facility] Start: 03-29-2017 Urine microalbumin profile [facility] Start: 09-06-2016 Pneumococcal Vaccine : 65+ Years (1 - PCV) Pneumococcal Vaccine: 65+ Years (1 - PCV) [facility] Start: 2016 BONE DENSITY BONE DENSITY [facility] Start: 05-26-2016 SHINGRIX VACCINE (2 of 3) SHINGRIX VACCINE (2 of 3) [facility] Start: 05-26-2016 Zoster Vaccines (2 o f 3) Zoster Vaccines (2 of 3) [facility] Start: 2011 Hepatitis B Vaccine (1 of 3 - Risk 3-dose series) Hepatitis B Vaccine (1 of 3 - Risk 3-dose series) [facility] Start: 2011 Hepatitis B Vaccines (1 of 3 - Risk 3-dose series) Hepatitis B Vaccines (1 of 3 - Risk 3-dose series) [facility] Start: 2011 RSV Immunization age d 60 or older (1 - 1-dose 60+ series) RSV Immunization aged 60 or older (1 - 1-dose 60+ series) [facility] Start: 2011 RSV Immunization for Adults (1 - Risk 60-74 years 1-dose series) RSV Immunization for Adults (1 - Risk 60-74 years 1-dose series) [facility] Start: 2011 RSV Vaccine (1 - 1-d ose 60+ series) RSV Vaccine (1 - 1-dose 60+ series) [facility] Start: 2011 RSV Vaccine (1 - Ris k 60-74 years 1-dose series) RSV Vaccine (1 - Risk 60-74 years 1-dose series) [facility] Start: 09-06-2001 Zoster Vaccines (1 o f 2) Zoster Vaccines (1 of 2) [facility] Start: 1996 COLOGUARD (FIT-DNA) COLOGUARD (FIT-D NA) [facility] Start: [address] COLONOGRAPHY [facility] Start: 1996 Screening for malign ant neoplasm of colon [facility] Start: 1996 SIGMOIDOSCOPY SIGMOIDOSCOPY [facility] Start: 09-07-1991 Screening for malign ant neoplasm of breast Mammogram [facility] Start: 1991 Screening for malign ant neoplasm of breast Mammogram [facility] Start: 09-06-1970 DTaP/Tdap/Td Vaccine s (1 - Tdap) DTaP/Tdap/Td Vaccines (1 - Tdap) [facility] Start: 1970 DTaP/Tdap/Td vaccine (1 - Tdap) DTaP/Tdap/Td vaccine (1 - Tdap) [facility] Start: 1970 Hepatitis A Vaccines (1 of 2 - Risk 2-dose series) Hepatitis A Vaccines (1 of 2 - Risk 2-dose series) [facility] Start: 09-06-1969 Hepatitis C screening Hepatitis C [facility] Start: 1969 Anxiety Screening Anxiety Screening [facility] Start: 1969 BP CONTROLLED (<130/80) BP CONTROLLE D (<130/80) [facility] Start: 1969 Diabetes: Urine Albumin-Creatinine Ratio for Kidney Health Diabetes: Urine Albumin-Creatinine Ratio for Kidney Health [facility] Start: 1969 Hepatitis C screening Hepatitis C Sc [facility] [place] Start: 1963 Depression Monitoring Depression Mon itoring [facility] Start: 1963 Depression Screening Depression Scre ening [facility] Start: 1961 Diabetic foot examination Diabetes: Foot Exam [facility] Start: 1961 Glaucoma screening Diabetes: R etinopathy Screening [facility] Start: 1961 Preventive dental service Diabetes: Dental Exam [facility] Start: 03-09-1952 COVID-19 Vaccine (#1) COVID-19 Vacci ne (#1) [facility] Start: 1951 Hepatitis B Vaccines (1 of 3 - 3-dose series) Hepatitis B Vaccines (1 of 3 - 3-dose series) [facility] Start: 1951 Screening for malign ant neoplasm of colon [facility] Start: 1951 Screening for osteoporosis Bone Density Scan [facility] Start: 1951 Lipid panel Lipid Panel [facility] Start: 1951 Medicare Advantage Annual Wellness Visit (AWV) Medicare Advantage Annual Wellness Visit (AWV) [facility] Start: 1951 Screening for malign ant neoplasm of colon [facility] Start: 1951 Screening for osteoporosis Bone Density Scan [facility] Bacteria identified in Blood by Culture [facility] [employer] [facility] Work Phone: End: 03-13-2022 Basic metabolic 2000 panel - Serum or Plasma Basic Metabolic Panel Lab Routine Daily for 3 Days starting 03/11/2022 until 03/13/2022, 1 completed [employer] Work Phone: Comment on above: Daily for 3 Days sta rting 03/11/2022 until 03/13/2022, 1 completed End: 03-13-2022 CBC W Auto Differential panel - Blood CBC with Auto Differential Lab Routine Daily for 3 Days starting 03/11/2022 until 03/13/2022, 1 completed [employer] Work Phone: Comment on above: Daily for 3 Days sta rting 03/11/2022 until 03/13/2022, 1 completed Culture, Blood 1 Culture, Blood 1 Microbiology STAT 03/08/2022 1:04 PM EDT [employer] Work Phone: Culture, Blood 2 Culture, Blood 2 Microbiology STAT 03/08/2022 1:04 PM EDT [employer] Work Phone: End: 03-08-2022 Culture, Urine Culture, Urine Microbiology Add-On One Time for 1 Occurrences starting 03/08/2022 until 03/08/2022 [employer] Work Phone: Comment on above: One Time for 1 Occur rences starting 03/08/2022 until 03/08/2022 Dressing Order: Collagen Ag, Mesalt pad; Three times per week; 4x4 gauze, ABDs; Kerlex, Paper tape Dressing Order: Collagen Ag, Mesalt pad; Three times per week; 4x4 gauze, ABDs; Kerlex, Paper tape Wound Ostomy Routine Ordered: 01/20/2024 [employer] Work Phone: Comment on above: Ordered: 01/20/2024 Dressing Order: Collagen, Mesalt pad; Three times per week; ABDs; Kerlex, Paper tape Dressing Order: Collagen, Mesalt pad; Three times per week; ABDs; Kerlex, Paper tape Wound Ostomy Routine Ordered: 01/27/2024 [employer] Work Phone: Comment on above: Ordered: 01/27/2024 End: 10-26-2022 Dxa bone density study 1/> sites axial skel DXA-AXIAL SKELETON Radiology Routine Disorder of bone and cartilage 1 Occurrences starting 09/26/2021 until 10/26/2022 [facility] Work Phone: Comment on above: 1 Occurrences starti ng 09/26/2021 until 10/26/2022 ECG 12 lead ECG 12 lead CV E CG STAT 09/06/2022 3:01 AM EDT [employer] Work Phone: Glucose [Mass/volume ] in Serum or Plasma [facility] Work Phone: Comment on above: 4X Daily (AC & HS) u ntil discontinued starting 03/08/2022 As Needed until disc ontinued starting 03/08/2022 End: 03-08-2022 Initiate Sepsis Narrator Initiate Sepsis Narrator Respiratory Care STAT Once for 1 Occurrences starting 03/08/2022 until 03/08/2022 [facility] Work Phone: Comment on above: Once for 1 Occurrenc es starting 03/08/2022 until 03/08/2022 End: 11-26-2025 MR Ankle - left WO contrast MRI ANKLE WO IVCON LEFT Radiology Routine Chronic pain of left ankle 1 Occurrences starting 10/27/2024 until 11/26/2025 [facility] Comment on above: 1 Occurrences starti ng 10/27/2024 until 11/26/2025 Oxygen therapy [Mini mum Data Set] Initiate Oxygen Therapy Protocol Respiratory Care Routine Daily until discontinued starting 03/08/2022 [employer] Work Phone: Comment on above: Daily until disconti nued starting 03/08/2022 Oxygen therapy [Mini mum Data Set] Initiate Oxygen Therapy Protocol Respiratory Care Routine As Needed until discontinued starting 03/08/2022 [employer] Work Phone: Comment on above: As Needed until disc ontinued starting 03/08/2022 End: 03-19-2022 PROTIME/INR & PTT PROTIME/INR & PTT Lab Routine Daily for 10 Days starting 03/10/2022 until 03/19/2022, 2 completed [employer] Work Phone: Comment on above: Daily for [address] arting 03/10/2022 until 03/19/2022, 2 completed End: 01-17-2023 Screening mammography bi 2-view breast inc cad FUAD SCREENING Radiology Routine Encounter for screening mammogram for breast cancer 1 Occurrences starting 12/18/2021 until 01/17/2023 [facility] Work Phone: Comment on above: 1 Occurrences starti ng 12/18/2021 until 01/17/2023 End: 09-26-2022 US CAROTID ARTERIES [facility] US CAROTID ARTERIES [facility] Vascular Lab Routine Carotid artery disease, unspecified laterality, unspecified type (HCC) 1 Occurrences starting 09/26/2021 until 09/26/2022 [facility] Work Phone: Comment on above: 1 Occurrences starti ng 09/26/2021 until 09/26/2022 End: 03-08-2022 Wound ostomy eval and treat Wound ostomy eval and treat Wound Ostomy Routine One Time for 1 Occurrences starting 03/08/2022 until 03/08/2022 [employer] Work Phone: Comment on above: One Time for 1 Occur rences starting 03/08/2022 until 03/08/2022 End: 11-26-2025 XR Ankle - left AP and Lateral and oblique XR ANKLE GENERAL 3V AP/LAT/OBL LEFT Radiology Routine Sprain of left ankle, unspecified ligament, initial encounter Ankle instability, left 1 Occurrences starting 10/27/2024 until 11/26/2025 [facility] Work Phone: Comment on above: 1 Occurrences starti ng 10/27/2024 until 11/26/2025 XR Ankle - left AP a nd Lateral and oblique XR ANKLE GENERAL 3V AP/LAT/OBL LEFT Radiology Routine Sprain of left ankle, unspecified ligament, initial encounter Ankle instability, left 10/27/2024 12:04 PM EDT [facility] End: 03-12-2023 XR FOOT GENERAL 3V AP/LAT/OBL LEFT XR FOOT GENERAL 3V AP/LAT/OBL LEFT Radiology Routine Diabetic ulcer of toe 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, with fat layer exposed (HCC) 1 Occurrences starting 02/10/2022 until 03/12/2023 [facility] Work Phone: Comment on above: 1 Occurrences starti ng 02/10/2022 until 03/12/2023 End: 02-10-2022 XR FOOT GENERAL 3V AP/LAT/OBL LEFT [facility] Work Phone: Comment on above: 1 Occurrences starti ng 02/10/2022 until 02/10/2022 End: 11-26-2025 XR Tibia and Fibula - left AP and Lateral XR TIBIA FIBULA 2V AP/LAT LEFT Radiology Routine Sprain of left ankle, unspecified ligament, initial encounter Ankle instability, left 1 Occurrences starting 10/27/2024 until 11/26/2025 [facility] Comment on above: 1 Occurrences starti ng 10/27/2024 until 11/26/2025 XR Tibia and Fibula - left AP and Lateral XR TIBIA FIBULA 2V AP/LAT LEFT Radiology Routine Sprain of left ankle, unspecified ligament, initial encounter Ankle instability, left 10/27/2024 12:04 PM EDT [facility] Immunizations Immunization Date Immunization Notes Care Provider Fide pendleton 03-14-2022 influenza virus vacc ine, unspecified formulation [facility] 1 [facility] 12-11-2021 COVID-19, PFIZER Bivalent BOOSTER, (age 12y+), IM, 30 mcg/0.3 mL dose BETY Jha MD Work Phone: [facility] Work Phone: 04-21-2021 COVID-19 vaccine, fu ll dose (MODERNA) Baudilio Sultana MD Work Phone: [facility] 02-21-2021 influenza, high-dose , quadrivalent vaccine (FLUZONE HIGH DOSE QUADRIVALENT) Baudilio Sultana MD Work Phone: [facility] 02-21-2021 influenza virus vacc ine, unspecified formulation Chasidy Heredia [facility] 09-25-2020 COVID-19 vaccine, fu ll dose (MODERNA) Baudilio Sultana MD Work Phone: [facility] 09-25-2020 COVID-19, [place] Vaccine , Vaccine Unspecified BETY Jha MD Work Phone: [facility] Work Phone: 09-25-2020 SARS-CoV-2, Unspecified [facility] 1 [facility] 08-28-2020 COVID-19 vaccine, fu ll dose (MODERNA) Baudilio Sultana MD Work Phone: [facility] Work Phone: 08-25-2020 COVID-19 vaccine, fu ll dose (MODERNA) Baudilio Sultana MD Work Phone: [facility] 08-23-2020 COVID-19, [place] Vaccine , Vaccine Unspecified BETY Jha MD Work Phone: [facility] Work Phone: 08-23-2020 SARS-CoV-2, Unspecified [facility] 1 [facility] 03-07-2020 influenza, high-dose , quadrivalent vaccine (FLUZONE HIGH DOSE QUADRIVALENT) Baudilio Sultana MD Work Phone: [facility] 05-04-2019 influenza, high dose seasonal, preservative-free Baudilio Sultana MD Work Phone: [facility] 05-04-2019 pneumococcal polysaccharide vaccine, 23 valent Baudilio Sultana MD Work Phone: [facility] 04-06-2018 influenza, high dose seasonal, preservative-free Baudilio Sultana MD Work Phone: [facility] 03-23-2017 Influenza virus vaccine [facility] 03-31-2016 zoster vaccine, live Baudilio Sultana MD Work Phone: [facility] 03-25-2016 influenza, injectabl e, quadrivalent, contains preservative Baudilio Sultana MD Work Phone: [facility] 03-02-2015 influenza, seasonal, injectable Baudilio Sultana MD Work Phone: [facility] 01-25-2015 pneumococcal conjuga te vaccine, 13 valent Baudilio Sultana MD Work Phone: [facility] 03-23-2014 influenza virus vacc ine, whole virus Baudilio Sultana MD Work Phone: [facility] 01-02-2014 Pneumococcal Vaccine [facility] Work Phone: 01-02-2014 pneumococcal vaccine , unspecified formulation Dr. Baudilio Sultana MD Work Phone: [facility] 12-28-2013 pneumococcal polysaccharide vaccine, 23 valent Baudilio Sultana MD Work Phone: [facility] 03-29-2011 influenza virus vacc ine, unspecified formulation Baudilio Sultana MD Work Phone: [facility] Work Phone: 04-15-2010 influenza virus vacc ine, unspecified formulation Baudilio Sultana MD Work Phone: [facility] Work Phone: 04-19-2009 novel influenza-H1N1 -09, all formulations Baudilio Sultana MD Work Phone: [facility] Work Phone: 04-12-2009 influenza virus vacc ine, unspecified formulation Baudilio Sultana MD Work Phone: [facility] Work Phone: 04-05-2008 influenza virus vacc ine, unspecified formulation Baudilio Sultana MD Work Phone: [facility] 04-19-2007 influenza virus vacc ine, unspecified formulation Baudilio Sultana MD Work Phone: [facility] Work Phone: 03-29-2007 tetanus toxoid, redu alfredito diphtheria toxoid, and acellular pertussis vaccine, adsorbed Baudilio Sultana MD Work Phone: [facility] Work Phone: 04-29-2006 influenza virus vacc ine, unspecified formulation Baudilio Sultana MD Work Phone: [facility] Work Phone: 04-03-2003 pneumococcal polysaccharide vaccine, 23 valent Baudilio Sultana MD Work Phone: [facility] Work Phone: 04-04-1998 pneumococcal polysaccharide vaccine, 23 valent Baudilio Sultana MD Work Phone: [facility] Payers Date Payer Category Payer Self-pay [id number] 2023 Medicare HMO [employer] EDICARE [id number] 2023 Medicaid HMO [employer] EDICAID ONLY [id number] 2022 Medicare [id number] 2022 Medicare (Managed Care) [facility] DUAL COMPLETE HMO POS SNP [id number] 2022 Medicare [id number] 2021 Medicaid [id number] 2021 Medicaid [facility] MEDICAID MYC ARE [facility] MEDICAID [id number] 2021-Present [phone] [place] [address] Medicaid [id number] 2021 Medicaid [id number] 2021 Medicare [id number] 2021 Medicare [id number] 2021 Medicaid MEDICAID [facility] MEDICAID [id number] 2021-Present [phone] [address] [place] [address] Medicaid [id number] 2020 Private Health Insurance 2003 Unknown [facility] [id number] PFNAN [id number] 1990 Medicare [id number] 1951 Unknown [id number] Medicare [id number] Medicare [facility] [id number] Private Health Insurance [facility] [id number] Unknown [id number] Unknown [id number] Unknown [id number] 462 Unknown [id number]. 462 Unknown [id number]. 462 Unknown [id number]. 462 Unknown [id number]. 462 Unknown [id number]. 462 Unknown [id number]. 462 Unknown [id number]. 462 Unknown [id number] [id number]. 462 Unknown [id number] [id number]. 462 Unknown [id number] [id number]. 462 Unknown [id number] [id number]. 462 Unknown [id number] [id number]. 462 Unknown [id number]. 462 Unknown [id number]. 462 Social History Date Type Detail Facility Start: 10-09-2016 End: 10-09-2021 Tobacco smoking status NHIS Never smoked tobacco [facility] Start: 08-15-2021 End: 10-27-2024 Alcohol intake Current drinker of alcohol (finding) [facility] Start: 01-02-2020 End: 09-06-2022 History SDOH Alcohol Frequency 2 [facility] Start: 01-02-2020 End: 09-06-2022 History SDOH Alcohol Std Drinks 1 [facility] Start: 01-02-2020 History SDOH Social Connections Phone 5 [facility] Start: 01-02-2020 History SDOH Social Connections Meetings 98 [facility] Start: 01-02-2020 History SDOH Social Connections Living 3 [facility] Start: 01-02-2020 History SDOH Physical Activity DPW 0 [facility] Start: 01-02-2020 History SDOH Stress 4 [facility] Start: 01-02-2020 Education 15 [facility] Start: 10-09-2016 End: 10-19-2024 Tobacco Comment Lived with 2 smoking parents for 18 years. Spouse non-smoke. [facility] Start: 1950 Sex Assigned At Not on file [facility] Start: 12-15-2020 End: 09-06-2022 Exposure to SARS-CoV-2 (event) Not sure [facility] Start: 04-22-2021 Tobacco smoking status NHIS Unknown if ever smoked [facility] Work Phone: Start: 02-27-2021 Rare [facility] Start: 02-27-2021 None [facility] Start: 06-26-2017 Spouse/ Significant Other [facility] Start: 02-27-2021 Non-smoker [facility] Start: 1950 End: 1950 Sex Assigned At Female [facility] Work Phone: Start: 10-04-2021 End: 03-10-2022 Exposure to SARS-CoV-2 (event) Unable to assess [facility] Start: 10-09-2016 End: 10-19-2024 Tobacco use and exposure Smokeless tobacco non-user [facility] Work Phone: Start: 03-08-2022 History SDOH Alcohol Comment 1 PER YEAR [facility] Work Phone: Start: 01-02-2020 End: 10-27-2024 History of Social function [facility] Start: 01-02-2020 End: 10-27-2024 Social connection and isolation panel [facility] Do you belong to any clubs or organizations such as caodaism groups, unions, fraternal or athletic groups, or school groups? No [facility] How often do you att end meetings of the clubs or organizations you belong to? Patient refused [facility] Are you now , , , , never or living with a partner? [facility] How often to you hav e a drink containing alcohol? Monthly or less [facility] How many standard dr inks containing alcohol do you have on a typical day? 1 or 2 [facility] How often do you hav e 6 or more drinks on 1 occasion? Never [facility] How hard is it for y ou to pay for the very basics like food, housing, medical care, and heating Not very hard [facility] Do you feel stress - tense, restless, nervous, or anxious, or unable to sleep at night because your mind is troubled all the time - these days [OSQ] Rather much [facility] (I/We) worried peyton er (my/our) food would run out before (I/we) got money to buy more. Sometimes true [facility] The food that (I/we) bought just didn't last, and (I/we) didn't have money to get more. Never true [facility] Start: 12-03-2021 Gender identity Identifies as female gender (finding) [facility] Start: 07-09-2024 Alcohol Comment occasional [facility] Start: 04-03-2022 Sex Female (finding) [facility] Medical Equipment Procedure Code Equipment Code Equipment Original Text Equipment Identifier Dates Reinaldo Bn Smplx Hv Fd - [id number] Start: 12-26-2013 Reinaldo Bn Smplx Hv Fd - [id number] Start: 12-26-2013 Comp Fem 3 Rt Kn Reinaldo Ps Pfc - [id number] Start: 12-26-2013 Ins Tib Xlnk - [id number] Start: 12-26-2013 Comp Tibtry 3 Kn Reinaldo Mdlr Sig - [id number] Start: 12-26-2013 Dome Pat 38mm Pf c Sig Std Kn - [id number] Start: 12-26-2013 [id number], [id number], [id number], [id number], [id number], [id number] Start: 01-04-2018 End: 07-24-2021 Comment on above: [...] AM Lora Alegria Ma No [facility] 01-25-2015 Are you blind, or do you have serious difficulty seeing, even when wearing glasses Yes 01/25/2015 11:16 AM Lora Alegria Ma Yes [facility] 01-25-2015 Do you have serious difficulty walking or climbing stairs Yes 01/25/2015 11:16 AM Lora Alegria Ma Yes [facility] 01-25-2015 Do you have difficul ty dressing or bathing Yes 01/25/2015 11:16 AM Lora Alegria Ma Yes [facility] 01-25-2015 Because of a physica l, mental, or emotional condition, do you have difficulty doing errands alone such as visiting a physician's office or shopping Yes 01/25/2015 11:16 AM EDT Lora Acuna Ma Yes [facility] Mental Status Date Assessment Result Facility 01-25-2015 Because of a physica l, mental, or emotional condition, do you have serious difficulty concentrating, remembering, or making decisions No 01/25/2015 11:16 AM EDT Lora Acuna Ma No [facility] Clinical Notes 01-04-2018 to 03-20-2025 Felix David RT(R) - 10/27/2024 11:40 AM Steven Sutton - 10/27/2024 11:29 AM Del Shultz RN - 10/27/2024 10:44 AM EDTPatient InstructionsDischarge InstructionsAttachments Note Date & Type Note Facility 03-20-2025 Note HNO ID: [id number] Author: GILMER COTTON, PhD Service: ? Author Type: Psychologist Type: Progress Notes Filed: 03/20/2025 16:09 Note Text: [facility] Progress Note Randolphmaryellen Hunter 03/20/2025 [id number] PROVIDER: Gilmer Cotton, PhD CPT Code: Time: 50 minutes Setting: Patient seen in person Parties Present: Patient Treatment Modality/Interventions: Cognitive Behavioral Reassurance/Supportive Insight oriented Problem solving Processing of emotions Psychoeducation MENTAL STATUS: Mood: variable, dysthymic Affect: mood-congruent Thoughts/Associations:goal directed Suicidal/Homicidal Ideation: None expressed or evidenced Other Prominent Symptoms: Therapy Focus/Content of Session: Self-care, Stress management, Mood/affect regulation, Self-esteem, and Coping with chronic illness Simran is a bit dysthymic. her is in an apartment and not as much contact the staff changes before she gets to know them so not a sense of family as she would like recently she was w/out her phone and couldnt call for help in the gazebo so pulled the fire alarm after time 2 new great grand children reading a lot .. mostly page turners Anxiety : elevated perhaps since she is less certain about getting help or appropriate help when she needs it PLAN: discussed coping at length MEDICATIONS: Per medical record: Current Outpatient Medications [...] directed once a month. blood sugar diagnostic ([employer] VERIO TEST STRIPS) test strip Test blood [...] Psychiatric Medication Issues: see med record DIAGNOSIS: [place] I: Depressive Disorder recurrent Morbidly Obese CP [place] II : Deferred [place] III : See (more content not included)... [facility] 02-13-2025 Note HNO ID: [id number] Author: GILMER COTTON, PhD Service: ? Author Type: Psychologist Type: Progress Notes Filed: 02/13/2025 15:57 Note Text: [facility] Progress Note Randolph Hunter 02/13/2025 [id number] PROVIDER: Gilmer Cotton, PhD CPT Code: Time: 50 minutes Setting: Due to the federal emergency declaration and the need for ongoing mental health services, the following visit was completed virtually and informed consent obtained orally to reduce the risk of COVID-19 exposure. Oral consent to services related to virtual visits was obtained after information was sent via Treater or read to patient if PeopleStringhart not available." Parties Present: Patient Treatment Modality/Interventions: [...] better Clovis is now in apartments near Misael Webber 2 children ... 11 grandchildren Khadra due end of Mar wonders if she might have had a little stroke affecting left side of her cheek and some more ruling some jo and has been out to restaurants with a group and may go to the fair Food: country more than fancy and they [...] directed once a month. blood sugar diagnostic ([employer] VERIO TEST STRIPS) test strip Test blood [...] misc Check Protim (more content not included)... [facility] 01-10-2025 Note HNO ID: [id number] Author: GILMER COTTON, PhD Service: ? Author Type: Psychologist Type: Progress Notes Filed: 01/10/2025 12:09 Note Text: [facility] Progress Note Randolph Hunter 01/10/2025 [id number] PROVIDER: Gilmer Cotton, PhD CPT Code: Time: [...] directed once a month. blood sugar diagnostic ([employer] VERIO TEST STRIPS) test strip Test blood [...] Issues: No change from previous appointment DIAGNOSIS: [place] I: Depressive Disorder recurrent Morbidly Obese CP [place] II : Deferred [place] III : See medical history [place] IV: Health [place] V: GAF 60-51 Moderate symptoms or moderate difficulty in (more content not included)... [facility] 12-06-2024 Note HNO ID: [id number] Author: GILMER COTTON, PhD Service: ? Author Type: Psychologist Type: Progress Notes Filed: 12/06/2024 12:04 Note Text: [facility] Progress Note Randolph Hunter 12/06/2024 [id number] PROVIDER: Gilmer Cotton, PhD CPT Code: Time: [...] illness Pt moved now a week at [facility] [place] so far and she believes it [...] Assisted Living room while she is in Residential Nursing rooms MEDICATIONS: Per medical record: Current [...] directed once a month. blood sugar diagnostic (FieldooUCH VERIO TEST STRIPS) test strip Test blood [...] Issues: No change from previous appointment DIAGNOSIS: [place] I: Depressive Disorder recurrent Morbidly Obese CP [place] II : Deferred [place] III : See medical history [place] IV: Health [place] V: GAF 60-51 Moderate symptoms or moderate difficulty in social, (more content not included)... [facility] 11-08-2024 Note HNO ID: [id number] Author: SHALINI DAMIAN RT(R) Service: ? Author Type: Technologist Type: [...] PATIENT PRESENTS WITH AN IMPLANTABLE OR ATTACHED CARD STRIPPER: No RADIOLOGY DEPARTMENT: MR; Exam(s) Completed: Lower MSK: Ankle/Hind Foot, left. Lavender Administered: No PERIPHERAL IV DATA: Not applicable SIGNED BY: Shalini Damian, (R) November 08, 2024 11:14 AM [facility] 11-04-2024 Note HNO ID: [id number] Author: GILMER COTTON, PhD Service: ? Author Type: Psychologist Type: Progress Notes Filed: 11/04/2024 11:56 Note Text: [facility] Progress Note Randolph L Johan 11/04/2024 [id number] PROVIDER: Gilmer Cotton, PhD CPT Code: Time: 50 minutes Setting: Due to the federal emergency declaration and the need for ongoing mental health services, the following visit was completed virtually and informed consent obtained orally to reduce the risk of COVID-19 exposure. Oral consent to services related to virtual visits was obtained after information was sent via Treater or read to patient if PeopleStringhart not available." Parties Present: Patient Treatment Modality/Interventions: [...] / mo over a year so considering [facility] Clovis is doing a walk through today [...] directed once a month. blood sugar diagnostic (FieldooUCH VERIO TEST STRIPS) test strip Test blood [...] adjustable head and (more content not included)... [facility] 10-27-2024 History of Present illness Narrative [...] PATIENT PRESENTS WITH AN IMPLANTABLE OR ATTACHED CARD STRIPPER: No RADIOLOGY DEPARTMENT: General X-ray: Exam(s) Completed: Lower Extremity X-Ray(s): Tibia Fibula, Left and Ankle, Left PERIPHERAL IV DATA: Not applicable SIGNED BY: RT Ari(Jessica) October 27, 2024 11:40 AM documented in this encounter [facility] 10-27-2024 Note HNO ID: [id number] Author: FELIX DAVID RT(R) Service: Radiology Author [...] PATIENT PRESENTS WITH AN IMPLANTABLE OR ATTACHED CARD STRIPPER: No RADIOLOGY DEPARTMENT: General X-ray: Exam(s) Completed: Lower Extremity X-Ray(s): Tibia Fibula, Left and Ankle, Left PERIPHERAL IV DATA: Not applicable SIGNED BY: RT Ari(Jessica) October 27, 2024 11:40 AM [facility] 10-27-2024 Note HNO ID: [id number] Author: STEVEN PELAEZ, ? Service: ? Author [...] 2011 SLE (systemic lupus erythematosus) ([facility]) Type II or unspecified type diabetes mellitus [...] month. 12 Each 0 blood sugar diagnostic (Smart VenturesTOUCH VERIO TEST STRIPS) test strip Test blood [...] (NORCO) 5-325 mg (more content not included)... [facility] 10-27-2024 History of Present illness Narrative Terry [...] improve strength and stability. 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 She is currently at [facility]. Has a history of cerebral palsy with left sided decreased sensation, but states that when she stands or puts pressure on the foot she is still having pain. XRay of left ankle was done 09/18/24. ИРИНА 12/15/23 documented in this encounter [facility] 10-27-2024 Instructions Steven Pelaez - 10/27/2024 [...] center. documented in this encounter [facility] 10-27-2024 Note HNO ID: [id number] Author: DEL ISBELL, RN Service: ? Author Type: Registered Nurse [...] and injured herself. She is currently at [facility]. Has a history of cerebral palsy with left sided decreased sensation, but states that when she stands or puts pressure on the foot she is still having pain. XRay of left ankle was done 09/18/24. ИРИНА 12/15/23 [facility] 10-19-2024 History of Present illness Narrative [...] directed once a month. blood sugar diagnostic (FieldooUCH VERIO TEST STRIPS) test strip Test blood [...] Status Change Penicillins Hives Dioxicillin Promethazine Intolerance Xrhghsw-Szq-Wsl Red* Myalgia PAST MEDICAL HISTORY PAST MEDICAL [...] is undergoing PT currently. Follow up with [facility] for left foot pain. I spent a total of approximately 35 minutes on the date of the service which included preparing to see the patient, hwzf-os-izjy patient care, completing clinical documentation, obtaining and/or [...] these instructions. Informed Consent Consent Obtained: Verbal [place] Protocol A moment to CARE was completed. [...] PA-C documented in this encounter [facility] 10-19-2024 Note HNO ID: [id number] Author: MENDEL SHARMA PA-C Service: ? Author Type: Physician Cash Applications Analyst Type: Progress Notes Filed: 10/19/2024 10:43 Note [...] directed once a month. blood sugar diagnostic ([employer] VERIO TEST STRIPS) test strip Test blood [...] Status Change Penicillins Hives Dioxicillin Promethazine Intolerance Nbaptid-Nxs-Lxq Red* Myalgia PAST MEDICAL HISTORY PAST MEDICAL HISTORY Diagnosis Date CAD (coronary artery disease) Carotid artery stenosis Cerebral palsy (HCC) Chronic depressive personality disorder Diarrhea Dyslipidemia Edema bilat Hirsutism Hypertension Hypothyroid Insomnia Migraines (more content not included)... [facility] 10-10-2024 Note HNO ID: [id number] Author: TRAVIS PATTERSON APRN.HOT DIPPER Service: ? Author Type: Nurse Practitioner Type: Progress Notes Filed: 10/10/2024 16:06 Note Text: Connected Care Unit Progress Note Patient Name: Randolph Hunter Patient Facility: [facility] Admit Date 09/28/2024 Level of Care: Skilled [...] vital signs Monitor labs 9. Atherosclerosis of ely shoshone coronary artery 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 - ICD9: 414.01, [...] Dept Phone 10/19/2024 9:30 AM MENDEL SHARMA [facility] [phone] 11/04/2024 11:00 AM [facility] [phone] 12/06/2024 11:00 AM [facility] [phone] 12/07/2024 3:40 PM RAVI MICHAEL [facility] [phone] HPI: (Per hospital discharge) Admission Information ADMIT [...] inability to stand pivot necessitating going to residential facility for rehab SUMMARY OF WHAT HAPPENED WHILE I WAS IN THE HOSPITAL: Orthopedics agrees no surgical intervention now resume exercises when you get to the residential facility no ligamentous injury evident on CT [...] for weakness. Medication (more content not included)... [facility] 10-10-2024 History of Present illness Narrative Images from the original note were not included. Connected Care Unit Progress Note Patient Name: Randolph Hunter Patient Facility: [facility] Admit Date 09/28/2024 Level of Care: Skilled [...] vital signs Monitor labs 9. Atherosclerosis of ely shoshone coronary artery 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 - ICD9: 414.01, [...] 9:30 AM MENDEL SHARMA [facility] [phone] 11/04/2024 11:00 AM [facility] [phone] 12/06/2024 11:00 AM [facility] [phone] 12/07/2024 3:40 PM RAVI MICHAEL [facility] [phone] HPI: (Per hospital discharge) Admission Information ADMIT DATE: 09/18/2024 DISCHARGE DATE: 09/28/2024 MY DOCTORS AND MEDICAL TEAM: My Main Hospital Doctor: Sage Loera MD Primary Care Provider: aRf Casey MD, MD My Medical Team Members: Treatment Team: Attending Provider: Sage Loera MD MY CONDITION AT DISCHARGE: Stable REASON I WAS IN THE HOSPITAL: Debility from cerebral palsy with acute left knee pain without fracture and inability to stand pivot necessitating going to residential facility for rehab SUMMARY OF WHAT HAPPENED WHILE I WAS IN THE HOSPITAL: Orthopedics agrees no surgical intervention now resume exercises when you get to the residential facility no ligamentous injury evident on CT [...] 2011 SLE (systemic lupus erythematosus) ([facility]) Type II or unspecified type diabetes mellitus [...] GFR- 59 mL/min/1.73 m2 >60 L Final EYY-WSS-[id number] 49 mL/min/1.73 m2 >60 L Final Stage [...] today,10/10/2024 This note was partially generated using [employer] voice recognition system, and there may be some incorrect words, spellings, and punctuation that were not noted in checking the note before saving. Electronically signed by Travis Patterson APRN.HOT DIPPER documented in this encounter [facility] 10-05-2024 Note HNO ID: [id number] Author: TRAVIS PATTERSON APRN.JOHN Service: ? Author Type: Nurse Practitioner Type: Progress Notes Filed: 10/05/2024 16:20 Note Text: Connected Care Unit Progress Note Patient Name: Randolph Hunter Patient Facility: [facility] Admit Date 09/28/2024 Level of Care: Skilled [...] vital signs Monitor labs 9. Atherosclerosis of ely shoshone coronary artery 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 - ICD9: 414.01, [...] Dept Phone 10/19/2024 9:30 AM MENDEL SHARMA [facility] [phone] 11/04/2024 11:00 AM [facility] [phone] HPI: (Per hospital discharge) Admission Information ADMIT [...] inability to stand pivot necessitating going to residential facility for rehab SUMMARY OF WHAT HAPPENED WHILE I WAS IN THE HOSPITAL: Orthopedics agrees no surgical intervention now resume exercises when you get to the residential facility no ligamentous injury evident on CT [...] weakness. Medications: Medications (more content not included)... [facility] 10-05-2024 History of Present illness Narrative Images from the original note were not included. Connected Care Unit Progress Note Patient Name: Randolph Hunter Patient Facility: [facility] Admit Date 09/28/2024 Level of Care: Skilled [...] vital signs Monitor labs 9. Atherosclerosis of ely shoshone coronary artery 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 - ICD9: 414.01, [...] Phone 10/19/2024 9:30 AM MENDEL SHARMA [facility] [phone] 11/04/2024 11:00 AM [facility] [phone] HPI: (Per hospital discharge) Admission Information ADMIT [...] inability to stand pivot necessitating going to residential facility for rehab SUMMARY OF WHAT HAPPENED WHILE I WAS IN THE HOSPITAL: Orthopedics agrees no surgical intervention now resume exercises when you get to the residential facility no ligamentous injury evident on CT [...] today,10/05/2024 This note was partially generated using [employer] voice recognition system, and there may be some incorrect words, spellings, and punctuation that were not noted in checking the note before saving. Electronically signed by Travis Patterson APRN.HOT DIPPER documented in this encounter [facility] 09-30-2024 Note HNO ID: [id number] Author: TRAVIS PATTERSON APRN.JOHN Service: ? Author Type: Nurse Practitioner Type: Progress Notes Filed: 09/30/2024 13:49 Note Text: Connected Care Unit Progress Note Patient Name: Randolph Hunter Patient Facility: [facility] Admit Date 09/28/2024 Level of Care: Skilled [...] vital signs Monitor labs 9. Atherosclerosis of ely shoshone coronary artery 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 - ICD9: 414.01, [...] Dept Phone 10/04/2024 11:00 AM [facility] [phone] 10/19/2024 9:30 AM MENDEL SHARMA [facility] [phone] 11/04/2024 11:00 AM [facility] [phone] HPI: (Per hospital discharge) Admission Information ADMIT [...] inability to stand pivot necessitating going to residential facility for rehab SUMMARY OF WHAT HAPPENED WHILE I WAS IN THE HOSPITAL: Orthopedics agrees no surgical intervention now resume exercises when you get to the residential facility no ligamentous injury evident on CT [...] history (unchanged) Revi (more content not included)... [facility] 09-30-2024 History of Present illness Narrative Images from the original note were not included. Connected Care Unit Progress Note Patient Name: Randolph Hunter Patient Facility: [facility] Admit Date 09/28/2024 Level of Care: Skilled [...] vital signs Monitor labs 9. Atherosclerosis of ely shoshone coronary artery 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 - ICD9: 414.01, [...] Dept Phone 10/04/2024 11:00 AM [facility] [phone] 10/19/2024 9:30 AM MENDEL SHARMA [facility] [phone] 11/04/2024 11:00 AM [facility] [phone] HPI: (Per hospital discharge) Admission Information ADMIT [...] inability to stand pivot necessitating going to residential facility for rehab SUMMARY OF WHAT HAPPENED WHILE I WAS IN THE HOSPITAL: Orthopedics agrees no surgical intervention now resume exercises when you get to the residential facility no ligamentous injury evident on CT [...] which included preparing to see the patient, xwdx-yr-pkxw patient care, completing clinical documentation, obtaining and/or reviewing separately obtained history, performing a medically appropriate examination, counseling and educating the patient/family/caregiver, ordering medications, tests, or procedures, communicating with other HCPs (not separately reported), independently interpreting results (not separately reported), communicating results to the patient/family/caregiver, and care coordination (not separately reported). It This note was partially generated using [employer] voice recognition system, and there may be some incorrect words, spellings, and punctuation that were not noted in checking the note before saving. Electronically signed by Travis Patterson APRN.JOHN documented in this encounter [facility] 09-28-2024 Note HNO ID: [id number] Author: KATERIN RICH RN Service: Care Management Author Type: Registered Nurse Type: Care Mgt Progress Note Filed: 09/28/2024 15:06 Note Text: CARE MANAGEMENT DISCHARGE NOTE SERVICE DATE: September 28, 2024 SERVICE TIME: 3:04 PM Admission Date: 09/18/2024 LOS: 0 days Discharge Arrangement Discharge Arrangement: [facility] Facility Was an expedited discharge program used?: No Services Arranged Provider Name: [facility] Caregiver Assessment Caregiver is ready, willing and able to meet the patient's needs as recommended by the inter-professional team: Yes Name of Caregiver: [facility] Transportation Arrangements Transportation Arrangements: Ambulance Transportation Agency and Phone #:: [facility] [phone] Date of Trip: 09/28/24 Time of Trip: 1630 Type of Service: BLS Non-emergency Is Patient Medicaid Pending?: No Was transportation financial coverage discussed with family?: 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 [facility] is able to accept patient today. Precert approval received. Patient agreeable to discharge plan. Ambulance transport via MMT at 1630. Envelope prepared. Bedside RN updated. SIGNATURE: Katerin Rich RN PATIENT NAME: Randolph Hunter DATE: September 28, 2024 TIME: 3:03 PM [facility] 09-28-2024 Note HNO ID: [id number] Author: KATERIN RICH RN Service: Care Management Author Type: Registered Nurse Type: Care Mgt Progress Note Filed: 09/28/2024 11:21 Note Text: CARE MANAGEMENT PROGRESS NOTE SERVICE DATE: 09/28/2024 SERVICE TIME: 10:07 AM LOS: 0 days Needs Prior to Discharge: To Be Determined EMR reviewed. CM called and left VM for Ping aRmsey from the [facility] ([phone] ext [phone]) in regards to determination of PASRR. Awaiting return call. CM will follow. 11:00 AM Left VM for [facility] in regards to determination of PASRR. Awaiting return call. Per [facility] website noted status is completed. CM will follow. 11:21 AM SNF reviewed results in [facility] website and are able to accept patient today. CM will follow. SIGNATURE: Katerin Rich RN PATIENT NAME: Randolph Hunter DATE: September 28, 2024 TIME: 10:07 AM [facility] 09-27-2024 Note HNO ID: [id number] Author: SAGE LOERA MD Service: Hospital Medicine Author Type: Physician Type: Progress Notes Filed: 09/27/2024 18:30 Note Text: DEPARTMENT OF HOSPITAL MEDICINE PROGRESS NOTE SERVICE DATE: 09/27/2024 SERVICE TIME: 5:44 PM Hospital Medicine/Primary Attending: Sage Loera MD NIGHT AND WEEKEND COVERAGE: [employer] COVERAGE: Nights: [phone], please page [facility] Night coverage pager [phone]. Probable discharge: Disposition: [facility]-residential facility Consultants: PROCEDURES: NONE CODE STATUS: Full code ACCEPTS BLOOD PRODUCTS: YES : ASSESSMENT/PLAN Reason for Admission: Fall in patient with cerebral palsy who being unable to bear weight to transfer will need residential home placement Anticoagulation: Prior to admission: Warfarin [...] (cerebral palsy) (HCC) (POA: Yes) --Presented to [place] ED for evaluation of left knee pain [...] lupus erythematosus) (HCC) (POA: Yes) --Plaquenil as INFORMATICS CONSULTANT Type 2 diabetes, controlled, with neuropathy (HCC) [...] the ED fo (more content not included)... [facility] 09-27-2024 Note HNO ID: [id number] Author: SHERYL HUITRON RN Service: Care Management Author Type: Registered Nurse Type: Care Mgt Progress Note Filed: 09/27/2024 14:00 Note Text: CARE MANAGEMENT PROGRESS NOTE SERVICE DATE: 09/27/2024 SERVICE TIME: 1:50 PM LOS: 0 days HENS.OH checked and no determination noted on PASRR at this time. NAWAF LOPEZ called Ping Ramsey from the [facility] . She confirms she completed bedside visit yesterday she checked and states she has not received any updates at this time. NAWAF LOPEZ provided direct contact and [facility] for her call with update. [facility] confirmed that insurance authorization/precert was obtained and valid until 09/29/24. SNF: [facility] updated in [facility] Transitions. Discharge Transportation: Medical Transport envelope on Chart. NAWAF LOPEZ updated patient. JESSICA dept to follow. SIGNATURE: Sheryl Huitron RN PATIENT NAME: Randolph Hunter DATE: September 27, 2024 TIME: 1:50 PM [facility] 09-26-2024 Note HNO ID: [id number] Author: SAGE LOERA MD Service: Hospital Medicine Author Type: Physician Type: Progress Notes Filed: 09/26/2024 14:40 Note Text: DEPARTMENT OF HOSPITAL MEDICINE PROGRESS NOTE SERVICE DATE: 09/26/2024 SERVICE TIME: 1:37 PM Hospital Medicine/Primary Attending: Sage Loera MD NIGHT AND WEEKEND COVERAGE: [employer] COVERAGE: Nights: [phone], please page [place] Hospital[facility] Night coverage pager [phone]. Probable discharge: Disposition: [facility]-residential facility Consultants: PROCEDURES: NONE CODE STATUS: Full code ACCEPTS BLOOD PRODUCTS: YES : ASSESSMENT/PLAN Reason for Admission: Fall in patient with cerebral palsy who being unable to bear weight to transfer will need residential home placement Anticoagulation: Prior to admission: Warfarin [...] (cerebral palsy) (HCC) (POA: Yes) --Presented to [place] ED for evaluation of left knee pain [...] lupus erythematosus) (HCC) (POA: Yes) --Plaquenil as INFORMATICS CONSULTANT Type 2 diabetes, controlled, with neuropathy (HCC) [...] recurrent Date Noted: 10/17/2009 CP (cerebral palsy) ([facility]) Date Noted: 03/29/2007 Hypomagnesemia Date Noted: 09/25/2024 [...] urinary symptoms, skin (more content not included)... [facility] 09-26-2024 Note HNO ID: [id number] Author: SHERYL HUITRON, RN Service: Care Management Author Type: Registered Nurse Type: Care Mgt Progress Note Filed: 09/26/2024 15:07 Note Text: CARE MANAGEMENT PROGRESS NOTE SERVICE DATE: 09/26/2024 SERVICE TIME: 9:41 AM LOS: 0 days 09/18/24 Admission Hospital Consults: PT. OT. O2: room air Diet: regular + supplements 09/22/24 PT recommended: SNF 09/22/24 OT recommended: SNF Discharge Plan: [facility] Facility SNF: [facility] - Able to Accept Precert was obtained and valid 09/23-09/25. Needs Precert for SNF. PT AND OT messaged to request updated evaluations today. [facility] via secure message to [facility] site checked - No updates on determination. NAWAF LOPEZ called and left voice message for Ping Ramsey [phone] [facility]. Service and Support Administration request call back with update on determination. 09/26/24 9:38 AM NAWAF LOPEZ attempted another call to Ping Ramsey-No Answer/Voice Mail Box - no new message left at this time. Needs Prior to Discharge: To Be Determined, OT/PT Evaluation, Insurance Authorization, Precertification, Discharge Transportation ([facility] Level II Reveiw - Determination.) NAWAF LOPEZ met with patient at bedside to update her on discharge planning. CM Dept to Follow. 09/26/24 12:50PM NAWAF LOPEZ called Ping Ramsey from the [facility]. She informs CM that they can not see the review in there system. 09/26/24 1:00 PM NAWAF LOPEZ called and spoke with Ravi Multani [phone] from the [facility] He informs CM that review needs to go to the [facility] and they should be able to see the referral. RN JESSICA called Ping Ramsey back to inform her. She states she still is unable to see and states if she not receive it by end of day today she will reach out to Ravi Multani tomorrow. CM Dept to follow. 09/26/24 2:08 PM Ping Ramsey from [facility] called CM to update her that she will be completing bedside visit today between 300PM and 400PM. [facility] tasked to start insurance authorization/precert. CM Dept to follow. SIGNATURE: Sheryl Huitron RN PATIENT NAME: Randolph Hunter DATE: September 26, 2024 TIME: 9:41 AM [facility] 09-25-2024 Note HNO ID: [id number] Author: SAGE LOERA MD Service: Hospital Medicine Author Type: Physician Type: Progress Notes Filed: 09/25/2024 16:17 Note Text: DEPARTMENT OF HOSPITAL MEDICINE PROGRESS NOTE SERVICE DATE: 09/25/2024 SERVICE TIME: 12:48 PM Hospital Medicine/Primary Attending: Sage Loera MD NIGHT AND WEEKEND COVERAGE: [employer] COVERAGE: Nights: [phone], please page [facility] Night coverage pager [phone]. Probable discharge: Disposition: [facility]-residential facility Consultants: PROCEDURES: NONE CODE STATUS: Full code ACCEPTS BLOOD PRODUCTS: YES : ASSESSMENT/PLAN Reason for Admission: Fall in patient with cerebral palsy who being unable to bear weight to transfer will need residential home placement Anticoagulation: Prior to admission: Warfarin [...] (cerebral palsy) (HCC) (POA: Yes) --Presented to [place] ED for evaluation of left knee pain [...] lupus erythematosus) (HCC) (POA: Yes) --Plaquenil as INFORMATICS CONSULTANT Type 2 diabetes, controlled, with neuropathy (HCC) [...] chest pain, palpitati (more content not included)... [facility] 09-24-2024 Note HNO ID: [id number] Author: SAGE LOERA MD Service: Hospital Medicine Author Type: Physician Type: Progress Notes Filed: 09/25/2024 12:46 Note Text: DEPARTMENT OF HOSPITAL MEDICINE PROGRESS NOTE SERVICE DATE: 09/25/2024 SERVICE TIME: 12:10 PM Hospital Medicine/Primary Attending: Sage Loera MD NIGHT AND WEEKEND COVERAGE: [employer] COVERAGE: Nights: [phone], please page [facility] Night coverage pager [phone]. Probable discharge: Disposition: [facility]-residential facility Consultants: PROCEDURES: NONE CODE STATUS: Full code ACCEPTS BLOOD PRODUCTS: YES : ASSESSMENT/PLAN Reason for Admission: Fall in patient with cerebral palsy who being unable to bear weight to transfer will need residential home placement Anticoagulation: Prior to admission: Warfarin [...] (cerebral palsy) (HCC) (POA: Yes) --Presented to [place] ED for evaluation of left knee pain [...] lupus erythematosus) (HCC) (POA: Yes) --Plaquenil as INFORMATICS CONSULTANT Type 2 diabetes, controlled, with neuropathy (HCC) [...] changes, peripheral edema, paresthesia or focal weaknesses. [place] ED Course: HDS, afebrile. Labs unremarkable. Imaging including XR L KNEE/HIP/ANKLE negative for fracture. CT L KNEE negative for fracture, small joint effusion noted. The patient was admitted under (more content not included)... [facility] 09-23-2024 Note HNO ID: [id number] Author: CONCEPCION KEEN MD Service: Hospital Medicine Author Type: Physician Type: Progress Notes Filed: 09/23/2024 17:37 Note Text: DEPARTMENT OF HOSPITAL MEDICINE PROGRESS NOTE SERVICE DATE: 09/23/2024 SERVICE TIME: 5:34 PM Hospital Medicine/Primary Attending: Concepcion Keen,* NIGHT AND WEEKEND COVERAGE: [employer] COVERAGE: Days: [phone], please page attending physician. Nights: [phone], please page [place] Hospital[facility] Night coverage pager [phone]. Subjective INTERVAL HPI: Seen and examined on [...] Drain Duration External Collection Device 09/18/24 2332 [facility] 4 days Reviewed lines and needs to [...] (cerebral palsy) (HCC) (POA: Yes) --Presented to [place] ED for evaluation of left knee pain after a fall at home, non-ambulatory at baseline secondary to CP but concerns for current facility ability to meet her needs --XR L KNEE/HIP/ANKLE negative for acute osseous injury -- (more content not included)... [facility] 09-23-2024 Note HNO ID: [id number] Author: SHERYL HUITRON, RN Service: Care Management Author Type: Registered Nurse Type: Care Mgt Progress Note Filed: 09/23/2024 16:53 Note Text: CARE MANAGEMENT PROGRESS NOTE SERVICE DATE: 09/23/2024 SERVICE TIME: 8:09 AM LOS: 0 days Discharge Plan: [facility] Facility SNF: [facility] - : Able to Accept. [facility] tasked to start insurance precert for SNF. [place] PAS[place] completed. Level II Review Required. Determination: Pending. Discharge Transportation: Medical Transport - COT Transport Envelope on Chart SNF [facility] Updated in Careport Transitions. Needs Prior to Discharge: To Be Determined, Insurance Authorization, Precertification, Discharge Transportation (PASRR Level II Determination) Dept to Follow. 09/23/24 11:46 AM [facility] confirms Precert Obtained: Patient has been APPROVED to admit to [facility] in the [facility] Portal starting 09/23-09/25 NRD 09/25 Auth ID [id number]. [place] PAS[place] Level II Review Determination is Still Pending. SNF: [facility] - Updated in Careport Transitions. They can not accept until they receive the PASRR determination. CM dept to Follow. 09/23/24 4:52 PM RN JESSICA checked [place] PAS[place] Document ID : [id number] - Still Pending Level II Determination. CM Dept to follow. SIGNATURE: Sheryl Huitron RN PATIENT NAME: Randolph Hunter DATE: September 23, 2024 TIME: 8:08 AM [facility] 09-22-2024 Note HNO ID: [id number] Author: CONCEPCION KEEN MD Service: Hospital Medicine Author Type: Physician Type: Progress Notes Filed: 09/22/2024 12:13 Note Text: DEPARTMENT OF HOSPITAL MEDICINE PROGRESS NOTE SERVICE DATE: 09/22/2024 SERVICE TIME: 12:12 PM Hospital Medicine/Primary Attending: Concepcion Keen,* NIGHT AND WEEKEND COVERAGE: [employer] COVERAGE: Days: [phone], please page attending physician. Nights: [phone], please page [place] Hospital[facility] Night coverage pager [phone]. Subjective INTERVAL HPI: Seen and examined on [...] Drain Duration External Collection Device 09/18/24 2332 [facility] 3 days Reviewed lines and needs to [...] (cerebral palsy) (HCC) (POA: Yes) --Presented to [place] ED for evaluation of left knee pain after a fall at home, non-ambulatory at baseline secondary to CP but concerns for current facility ability to meet her needs --XR L KNEE/HIP/ANKLE negative for acute osseous injury --CT L KNEE negative for fracture, small joint eff (more content not included)... [facility] 09-22-2024 Note HNO ID: [id number] Author: CONCEPCION KEEN MD Service: Care Management [...] hospital problems. * Attending Physician: Concepcion Keen,* [facility] 09-22-2024 Note HNO ID: [id number] Author: SHERYL HUITRON RN Service: Care Management Author Type: Registered Nurse Type: Care Mgt Progress Note Filed: 09/22/2024 15:17 Note Text: CARE MANAGEMENT PROGRESS NOTE SERVICE DATE: 09/22/2024 SERVICE TIME: 8:35 AM SNF Referrals: [facility] - [facility] Fpc AND Rehab - Able to Accept [facility] - Able to Accept Patients [facility] 1st choice is pending. NAWAF LOPEZ updated Referral and requested update on acceptance. PT AND OT messaged to request updates for Precert. Patient has been updated that [facility] is still pending. Discharge Transportation: To be Determined. Needs Prior to Discharge: Accepting Facility, OT/PT Evaluation, Insurance Authorization, Precertification, Discharge Transportation CM Dept to Follow. 09/22/24 3:10 PM [facility] - Able to Accept PASR Completed in [facility] - Level II Review Required. NAWAF LOPEZ called the [facility] [phone] Option 2 Service and Support Administration and spoke with Ping Ramsey at [phone]. She checked and informed CM that it has not been received from [facility] at this time. She reports she it [...] DATE: September 22, 2024 TIME: 8:35 AM [facility] 09-21-2024 Note HNO ID: [id number] Author: GILMER COTTON, PhD Service: ? Author Type: Psychologist Type: Progress Notes Filed: 09/21/2024 17:07 Note Text: [facility] Department Progress Note Randolph Hunter 09/21/2024 [id number] PROVIDER: Gilmer Cotton, PhD CPT Code: Time: 30 minutes Setting: Due to the federal emergency declaration and the need for ongoing mental health services, the following visit was completed virtually and informed consent obtained orally to reduce the risk of COVID-19 exposure. Oral consent to services related to virtual visits was obtained after information was sent via Treater or read to patient if PeopleStringhart not available." Phone ... no access to [...] PRN Psychiatric Medication Issues: as noted DIAGNOSIS: [place] I: Depressive Disorder recurrent Morbidly Obese CP Fair[place] II : Deferred Fairfield III : See medical history Fairfield IV: Health Fairfield V: GAF 60-51 Moderate symptoms or moderate difficulty in social, occupational or school functioning TREATMENT PROGRESS/ASSESSMENT: Fluctuating progress. TREATMENT PLAN/GOALS: Continue in therapy focusing on self-care, stress management, affect management, anxiety management, and self-esteem. Next appointment: as scheduled Gilmer Cotton, PhD [facility] 09-21-2024 Note HNO ID: [id number] Author: CONCEPCION KEEN MD Service: Hospital Medicine Author Type: Physician Type: Progress Notes Filed: 09/21/2024 16:30 Note Text: DEPARTMENT OF HOSPITAL MEDICINE PROGRESS NOTE SERVICE DATE: 09/21/2024 SERVICE TIME: 4:28 PM Hospital Medicine/Primary Attending: Concepcion Keen,* NIGHT AND WEEKEND COVERAGE: [employer] COVERAGE: Days: [phone], please page attending physician. Nights: [phone], please page [place] Hospital[facility] Night coverage pager [phone]. Subjective INTERVAL HPI: Seen and examined on [...] Drain Duration External Collection Device 09/18/24 2332 [facility] 2 days Reviewed lines and needs to [...] (cerebral palsy) (HCC) (POA: Yes) --Presented to [place] ED for evaluation of left knee pain after a fall at home, non-ambulatory at baseline secondary to CP but concerns for current facility ability to meet her needs --XR L KNEE/HIP/ANKLE negative for acute osseous injury --CT L KNEE negative for fracture, small joint effusion noted --[place] (more content not included)... [facility] 09-21-2024 Note HNO ID: [id number] Author: SHERYL HUITRON RN Service: Care Management Author Type: Registered Nurse Type: Care Mgt Progress Note Filed: 09/21/2024 10:53 Note Text: CARE MANAGEMENT PROGRESS NOTE SERVICE DATE: 09/21/2024 SERVICE TIME: 9:19 AM LOS: 0 days Patient requesting a SNF Provider List for [place]: [id number]. [facility] SNF Provider List for [place] given to patient at bedside. Needs Prior to Discharge: To Be Determined, Facility or Agency Choices, Accepting Facility, Insurance Authorization, Precertification, Discharge Transportation CM Dept to Follow. 09/21/24 10:50 AM Patient provided SNF choices in order of preference: [facility] Fpc AND Rehab [facility] SNF Referrals sent in [facility]. Precert Needed for SNF. CM Dept to Follow. SIGNATURE: Sheryl Huitron RN PATIENT NAME: Randolph Hunter DATE: September 21, 2024 TIME: 9:19 AM [facility] 09-21-2024 Note HNO ID: [id number] Author: ELANA, SHERYL, RN Service: Care Management Author Type: Registered [...] at bedside to discuss discharge planning. RN JESSICA discussed PT AND OT recommendations for SNF. [facility] SNF provider list given to patient. Patient informed she needs to provide 3 SNF choices in order of preference and she will require an insurance authorization/precert for SNF once she has an accepting SNF. [place] of Choice Given: Yes Level of Care Discussed: Fpc Facility Financial Disclosure Provided: Yes Financial Disclosure Comments: [facility] SNF Provider Lists [id number] an [id number] given to patient at bedside to review and provide SNF choices. Provider List: Fpc Facility Provider list within the patient's requested geographic area shared with the patient/family: Yes within: 15 miles of zip code: [address] (Patient also requesting a list for zip code [address].) Quality and resource use metrics shared with [...] DATE: September 21, 2024 TIME: 8:38 AM [facility] 09-20-2024 Note HNO ID: [id number] Author: CONCEPCION KEEN MD Service: Hospital Medicine Author Type: Physician Type: Progress Notes Filed: 09/20/2024 16:05 Note Text: DEPARTMENT OF HOSPITAL MEDICINE PROGRESS NOTE SERVICE DATE: 09/20/2024 SERVICE TIME: 4:04 PM Hospital Medicine/Primary Attending: Concepcion Keen,* NIGHT AND WEEKEND COVERAGE: [employer] COVERAGE: Days: [phone], please page attending physician. Nights: [phone], please page [facility] Night coverage pager [phone]. Subjective INTERVAL HPI: Seen and examined on [...] Drain Duration External Collection Device 09/18/24 2332 [facility] 1 day Reviewed lines and needs to [...] (cerebral palsy) (HCC) (POA: Yes) --Presented to [place] ED for evaluation of left knee pain after a fall at home, non-ambulatory at baseline secondary to CP but concerns for current facility ability to meet her needs --XR L KNEE/HIP/ANKLE negative for acute osseous injury --CT L KNEE negative for fracture, small joint effusion noted --Pain control as needed. On Lidoderm patch, Tylenol. Added oxycodone (more content not included)... [facility] 09-19-2024 Note HNO ID: [id number] Author: CONCEPCION KEEN MD Service: Hospital Medicine Author Type: Physician Type: Progress Notes Filed: 09/19/2024 14:41 Note Text: DEPARTMENT OF HOSPITAL MEDICINE PROGRESS NOTE SERVICE DATE: 09/19/2024 SERVICE TIME: 2:33 PM Hospital Medicine/Primary Attending: Concepcion Keen,* NIGHT AND WEEKEND COVERAGE: [employer] COVERAGE: Days: [phone], please page attending physician. Nights: [phone], please page [place] [facility] Night coverage pager [phone]. Subjective INTERVAL HPI: Seen and examined on [...] Drain Duration External Collection Device 09/18/24 2332 [facility] <1 day Reviewed lines and needs to [...] (cerebral palsy) (HCC) (POA: Yes) --Presented to [place] ED for evaluation of left knee pain [...] --CM consulted for (more content not included)... [facility] 09-19-2024 Note HNO ID: [id number] Author: JADE SPARROW RN Service: Care Management Author Type: Registered Nurse Type: Care Mgt Initial Assessment Filed: 09/19/2024 10:28 Note Text: CARE MANAGEMENT: ASSESSMENT AND DISCHARGE PLAN SERVICE DATE: September 19, 2024 SERVICE TIME: 10:26 AM PCP: Raf Casey MD, MD Primary Contact: Extended Emergency Contact Information Primary Emergency Contact: Harper Hunter (HCPOA) Mobile Relation: Son Admission Status: Observation Insurance Provider: [facility] DUAL COMPLETE HMO POS SNP Discharge Planning requested by: Per Department Practice Potential Transition Plans To Be Determined Advance Directives Current Advance Directive: Health Care Power of [place], Living Will In Chart: Yes Up To Date and Valid: Yes Current Living Arrangements and Support Lives with: Spouse/significant other Type of Residence: Assisted Living Facility Does the patient have to climb stairs at home?: No Care Facility Name: [facility] Support: Children, Spouse/significant other How do you manage to accomplish the following: Independent: Medication Management Needs Assistance: Bathe/Shower, Dress, Going to the bathroom Dependent: Ambulation, Meals/Meal Prep, Transportation to appointments/community Current Services/Equipment Current Post-Acute Service(s): DME Current DME Type: Wheelchair-manual, Other: See Comment, Bedside commode (Lift Chair) Discharge Planning Patient Goal(s): Increase strength [place] of Choice Explained: [place] of Choice Given: No Reason Not Given: Unable to complete with this assessment - revisit Are you interested in bedside delivery of your medications? No Discharge Planning Participant(s): Patient Patient/Family Comments: Caregiver Assessment: Caregiver is ready, willing and able to meet the patient's needs as recommended by the inter-professional team: Other: See Comment (From [facility]) Transport at Discharge: Transportation Arrangements: Ambulance Needs Prior to Discharge: Needs Prior to Discharge: OT/PT Evaluation Post-Acute Discharge Plan: Review of the chart and met with the patient. The patient states she lives with her at [facility] in [place]. States pivots from her lift chair to her wheelchair and able to pivot from her wheelchair to her C. The patient states the [facility] provides her meals and laundry services, the patient takes care of her own medications. PT evals- Pending. CM department will continue to follow for DC needs. SIGNATURE: Jade Sparrow RN PATIENT NAME: Randolph Hunter DATE: September 19, 2024 TIME: 10:26 AM [facility] 09-02-2024 Note HNO ID: [id number] Author: GILMER COTTON, PhD Service: ? Author Type: Psychologist Type: Progress Notes Filed: 09/02/2024 12:02 Note Text: [facility] Department Progress Note Randolph Hunter 09/02/2024 [id number] PROVIDER: Gilmer Cotton, PhD CPT Code: Time: 50 minutes Setting: Due to the federal emergency declaration and the need for ongoing mental health services, the following visit was completed virtually and informed consent obtained orally to reduce the risk of COVID-19 exposure. Oral consent to services related to virtual visits was obtained after information was sent via Treater or read to patient if MyChart not [...] directed once a month. blood sugar diagnostic ([employer] VERIO TEST STRIPS) test strip Test blood [...] daily. calcium car (more content not included)... [facility] 08-05-2024 Note HNO ID: [id number] Author: GILMER COTTON, PhD Service: ? Author Type: Psychologist Type: Progress Notes Filed: 08/05/2024 12:29 Note Text: [facility] Department Progress Note Randolph Hunter 08/05/2024 [id number] PROVIDER: Gilmer Cotton, PhD CPT Code: Time: [...] Psychiatric Medication Issues: see med record DIAGNOSIS: [place] I: Depressive Disorder recurrent Morbidly Obese CP [place] II : Deferred Fairfield III : See medical history [place] IV: Health [place] V: GAF 60-51 Moderate symptoms or moderate difficulty in social, o (more content not included)... [facility] 07-10-2024 Emergency department Note Pt resting quietly in bed with blanket over face. Respirations even and non labored. No coughing noted at this time. Await transport by [facility]. [facility] 07-10-2024 Emergency department Note Pt resting quietly in bed with blanket over face. Respirations even and non labored. No coughing noted at this time. Await transport by [facility]. Dr. Jha at bedside. Dr. Jha to [...] TABLET Place under the tongue. NYSTATIN (MYCOSTATIN) [id number] UNIT/GM POWDER Apply topically 2 times daily. [...] Low Risk (01/02/2020) Received from [facility] Overall Financial Resource Strain (CARDIA) Difficulty of Paying Living Expenses: Not very hard Food Insecurity: Food Insecurity Present (01/02/2020) Received from [facility] Hunger Vital Sign Worried About Running Out of Food in the Last Year: Sometimes true Ran Out of Food in the Last Year: Never true Transportation Needs: Unmet Transportation Needs (01/02/2020) Received from [facility] PRAPARE - Transportation Lack of Transportation (Medical): Yes Lack of Transportation (Non-Medical): Yes Physical Activity: Inactive (01/02/2020) Received from [facility] Exercise Vital Sign Days of Exercise per Week: 0 days Minutes of Exercise per Session: 0 min Stress: Stress Concern Present (01/02/2020) Received from [facility] [place] of Occupational Health - Occupational Stress Questionnaire Feeling of Stress : Rather much Social Connections: Moderately Isolated (01/02/2020) Received from [facility] Social Connection and Isolation Panel [NHANES] Frequency of Communication with Friends and Family: More than three times a week Frequency of Social Gatherings with Friends and Family: Never Attends Protestant Services: Never Active Member of Clubs or Organizations: No Attends Club or Organization Meetings: Patient declined Marital Status: SCREENINGS PHYSICAL EXAM ED Triage Vitals Temp Heart Rate Resp BP 07/09/24232007/09/24232307/09/24232307/09/242323 36.9 C (98.4 F) 96 20 99/66 SpO2 Temp Source Heart Rate Source Patient Position 07/09/242323 07/09/242320 -- -- 98 % Oral BP [...] chest x-ray. I reviewed external records from: [facility] demonstrating 62 prescriptions, to include gabapentin and Trilla Chest x-ray negative for consolidation upon my independent interpretation. Patient still coughing after glucagon but coughing ceased after Decadron. The patient will be discharged The patient is in agreement with this plan. Diagnoses as of 07/10/24 020 Acute cough Medications glucagon (human recombinant) injection 1 mg (1 mg IntraMUSCular Given 07/09/24 2340) dexAMETHasone (PF) (Decadron) injection 8 mg (8 mg Oral Given 07/10/24 0024) REVAL: CRITICAL CARE TIME None CONSULTS: None PROCEDURES: Unless otherwise noted below, none Procedures FINAL IMPRESSION 1. Acute cough DISPOSITION Discharge 07/10/2024 12:55:44 AM PATIENT REFERRED TO: [facility] Address: [place] [address] Schedule an appointment as soon as possible [...] Jha MD 07/10/24202 documented in this encounter [facility] 07-10-2024 Hospital Discharge instructions Александр Jha MD - 07/10/2024 12:56 AM EST If the Tessalon Perles do not work, you may purchase cough syrup [id number]. Please return to the emergency department if your symptoms change or worsen. The following attachments cannot be sent through Care Everywhere.Cough in Adults (Kittitian)documented in this encounter [facility] 07-10-[address] Jha at bedside. [facility] 07-09-[address] Jha to bedside. Pt given water. [facility] 07-09-2024 Physician Emergency department Note [...] TABLET Place under the tongue. NYSTATIN (MYCOSTATIN) [id number] UNIT/GM POWDER Apply topically 2 times daily. [...] Low Risk (01/02/2020) Received from [facility] Overall Financial Resource Strain (CARDIA) Difficulty of Paying Living Expenses: Not very hard Food Insecurity: Food Insecurity Present (01/02/2020) Received from [facility] Hunger Vital Sign Worried About Running Out of Food in the Last Year: Sometimes true Ran Out of Food in the Last Year: Never true Transportation Needs: Unmet Transportation Needs (01/02/2020) Received from [facility] PRAPARE - Transportation Lack of Transportation (Medical): Yes Lack of Transportation (Non-Medical): Yes Physical Activity: Inactive (01/02/2020) Received from [facility] Exercise Vital Sign Days of Exercise per Week: 0 days Minutes of Exercise per Session: 0 min Stress: Stress Concern Present (01/02/2020) Received from [facility] [place] of [employer]ational Health - Occupational Stress Questionnaire Feeling of Stress : Rather much Social Connections: Moderately Isolated (01/02/2020) Received from [facility] Social Connection and Isolation Panel [NHANES] Frequency of Communication with Friends and Family: More than three times a week Frequency of Social Gatherings with Friends and Family: Never Attends Protestant Services: Never Active Member of Clubs or [...] chest x-ray. I reviewed external records from: [facility] demonstrating 62 prescriptions, to include gabapentin and Trilla Chest x-ray negative for consolidation upon my [...] Discharge 07/10/2024 12:55:44 AM PATIENT REFERRED TO: [facility] Address: [address] , [place] [address] Schedule an appointment as soon as possible [...] MD (electronically signed) Emergency Medicine Provider Александр hJa MD 07/10/24 [id number] [facility] 06-30-2024 Note HNO ID: [id number] Author: GILMER COTTON, PhD Service: ? Author Type: Psychologist Type: Progress Notes Filed: 06/30/2024 11:53 Note Text: [facility] Department Progress Note Randolph Hunter 06/30/2024 [id number] PROVIDER: Gilmer Cotton, PhD CPT Code: Time: 50 minutes Setting: Due to the federal emergency declaration and the need for ongoing mental health services, the following visit was completed virtually and informed consent obtained orally to reduce the risk of COVID-19 exposure. 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 blood sugar diagnostic ([employer] VERIO TEST STRIPS) test strip Test blood [...] test meter ([place] (more content not included)... [facility] 05-02-2024 Note HNO ID: [id number] Author: GILMER COTTON, PhD Service: ? Author Type: Psychologist Type: Progress Notes Filed: 05/02/2024 12:11 Note Text: [facility] Progress Note Randolph Hunter 05/02/2024 [id number] PROVIDER: Gilmer Cotton, PhD CPT Code: Time: [...] directed once a month. blood sugar diagnostic ([employer] VERIO TEST STRIPS) test strip Test blood [...] Issues: No change from previous appointment DIAGNOSIS: [place] I: Depressive Disorder recurrent Morbidly Obese CP Fairfield II : Deferred Fairfield III : See medical history Fairfield IV: Health Fair[place] V: GAF 60-51 Moderate symptoms or moderate difficulty in social, occupational or school functioning TREATMENT PROGRESS/ASSESSMENT: Progressing satisfactorily. TREATMENT PLAN/GOALS: (more content not included)... [facility] 02-10-2024 History of Present illness Narrative [...] Test Results/Process Orders 10 [] Staff telephones [facility], Nursing Homes/Clarify Orders 10 [] [...] with plan . documented in this encounter [facility] 02-10-2024 Hospital Discharge instructions Maria Isabel Wilson RN - 02/10/2024 10:45 AM EDT Ordered treatment completed and patient is healed. Patient discharged without any issues. All questions answered. Call the clinic if your wound reopens or a new wound appears at [phone]. Edema/Swelling: Avoid standing for long periouds of [...] promote wound healing documented in this encounter [facility] 01-27-2024 History of Present illness Narrative Associated Order(s): Debridement Post-Procedure Diagnose(s): Pressure ulcer of right foot, stage 3 (HCC) Images from the original note were not included. [facility] Wound Care Progress Note CHIEF COMPLAINT: [...] provider verified the correct patient, procedure, equipment, learning support services director, and site/side marked as required. Debridement Details [...] attached Discharge Instructions documented in this encounter [facility] 01-27-2024 Hospital Discharge instructions Maria Isabel Wilson RN - 01/27/2024 1:15 PM EDT Follow-up Appointments: Return Appointment in 1 week. Call [place] wound center at [phone], [facility] at [phone], or [facility] Wound center at [phone]. Edema/Swelling: Avoid standing for long periouds of [...] secure with tape. documented in this encounter [facility] 01-27-2024 Note [facility] Wound Care Progress Note CHIEF COMPLAINT: [...] provider verified the correct patient, procedure, equipment, learning support services director, and site/side marked as required. Debridement Details [...] Paper tape Please see attached Discharge Instructions [facility] 01-20-2024 History of Present illness Narrative Associated Order(s): Debridement Post-Procedure Diagnose(s): Pressure ulcer of right foot, stage 3 (HCC) Images from the original note were not included. [facility] OSTOM[facility] HBO [address] [facility] [address] Loc: [phone] Wound Care Visit - New Patient Progress [...] ti,es a day, Disp: , Rfl: HYDROcodone-acetaminophen (Trilla) 5-325 MG tablet, Take 1 tablet by [...] the tongue., Disp: , Rfl: nystatin (Mycostatin) 732491 UNIT/GM powder, Apply topically 2 times daily., [...] provider verified the correct patient, procedure, equipment, learning support services director, and site/side marked as required. Debridement Details [...] Pressure Injury Foot Left (Active) Wound Image 01/20/241447 Site Assessment Red;[place] 01/20/24 144 Andra-Wound Assessment Calloused 01/20/241447 Wound Length (cm) 0.7 cm 01/20/24 1448 Wound Width (cm) 0.8 cm 01/20/24 1448 Wound Surface Area (cm^2) 0.56 cm^2 01/20/24 1448 Wound Depth (cm) 0.2 cm 01/20/24 1448 Wound Volume (cm^3) 0.112 cm^3 01/20/24 1448 Drainage Description Serosanguineous 01/20/24 144 Odor None 01/20/24 144 Drainage Amount Small 01/20/24 144 Treatments Cleansed 01/20/241447 1. Pressure ulcer of right foot, stage [...] Test Results/Process Orders 10 [x] Staff telephones [facility], Nursing Homes/Clarify Orders 10 [] [...] or more Points) documented in this encounter [facility] 01-20-2024 Hospital Discharge instructions Maria Isabel Wilson RN - 01/20/2024 2:45 PM EDT Follow-up Appointments: Return Appointment in 1 week. Call [place] [facility] at [phone], [facility] at [phone], or [facility] at [phone]. Edema/Swelling: Avoid standing for long periouds of [...] secure with tape. documented in this encounter [facility] 01-20-2024 Note Encounter addended b y: Tania Osei RN on: 01/21/2024 10:33 AM Actions taken: Care Teams modified, LDA properties accepted, Charge Capture section accepted [facility] 12-16-2023 Emergency department Note Patient wheeled out ED for transport to residence. discharge instructions sent to facility with patient. No further questions. Respirations even and non labored. No acute distress. A&O x4. Gifty Cornell RN 12/16/23 0015 [facility] 12-16-2023 Emergency department Note Patient wheeled [...] Low Risk (01/02/2020) Received from [facility], [facility] Overall Financial Resource Strain (CARDIA) Difficulty of Paying Living Expenses: Not very hard Food Insecurity: Food Insecurity Present (01/02/2020) Received from [facility] Hunger Vital Sign Worried About Running Out of Food in the Last Year: Sometimes true Ran Out of Food in the Last Year: Never true Transportation Needs: Unmet Transportation Needs (01/02/2020) Received from [facility] PRAPARE - Transportation Lack of Transportation (Medical): Yes Lack of Transportation (Non-Medical): Yes Physical Activity: Inactive (01/02/2020) Received from [facility] Exercise Vital Sign Days of Exercise per Week: 0 days Minutes of Exercise per Session: 0 min Stress: Stress Concern Present (01/02/2020) Received from [facility] [place] [facility] [employer] - Occupational Stress Questionnaire Feeling of Stress : Rather much Social Connections: Moderately Isolated (01/02/2020) Received from [facility] Social Connection and Isolation Panel [NHANES] Frequency of Communication with Friends and Family: More than three times a week Frequency of Social Gatherings with Friends and Family: Never Attends Protestant Services: Never Active Member of Clubs or [...] stable condition. Karen Gallardo MD 12/15/23 193 Patient to room 7 via [facility] for c/o a left foot ulcer, lower leg erythema, and a headache. Patient reports she has had her foot ulcer for a couple of months. V/S obtained, call light within reach. documented in this encounter [facility] 12-15-2023 Hospital Discharge instructions Karen Gallardo [...] Care Everywhere.Cellulitis (Skin Infection) Discharge Instructions, Adult (Kittitian)documented in this encounter [facility] 12-15-2023 Emergency department Triage note Patient to room 7 via [facility] for c/o a left foot ulcer, lower leg erythema, and a headache. Patient reports she has had her foot ulcer for a couple of months. V/S obtained, call light within reach. [facility] 12-15-2023 Physician Emergency department Note EMERGENCY [...] Low Risk (01/02/2020) Received from [facility] Overall Financial Resource Strain (CARDIA) Difficulty of Paying Living Expenses: Not very hard Food Insecurity: Food Insecurity Present (01/02/2020) Received from [facility] Hunger Vital Sign Worried About Running Out of Food in the Last Year: Sometimes true Ran Out of Food in the Last Year: Never true Transportation Needs: Unmet Transportation Needs (01/02/2020) Received from [facility] PRAPARE - Transportation Lack of Transportation (Medical): Yes Lack of Transportation (Non-Medical): Yes Physical Activity: Inactive (01/02/2020) Received from [facility] Exercise Vital Sign Days of Exercise per Week: 0 days Minutes of Exercise per Session: 0 min Stress: Stress Concern Present (01/02/2020) Received from [facility] [place] [facility] [employer] [facility] - Occupational Stress Questionnaire Feeling of Stress : Rather much Social Connections: Moderately Isolated (01/02/2020) Received from [facility] Social Connection and Isolation Panel [NHANES] Frequency of Communication with Friends and Family: More than three times a week Frequency of Social Gatherings with Friends and Family: Never Attends Protestant Services: Never Active Member of Clubs or [...] signed) Emergency Medicine Provider Gloria Bangura DO 06/25/24 1849 [facility] 12-15-2023 Physician Emergency department Note This [...] in stable condition. Karen Gallardo MD 12/15/231935 [facility] 07-20-2023 Emergency department Note Physician's arrived; pt removed from urine collection device and pts own attends placed on pt per her request. Pts belongings in bag at bedside. Report to Physician's. Veronika Bae RN 07/20/23 0844 [facility] 07-20-2023 Emergency department Note Physician's [...] still in radiology. Pia Caraballo RN 07/19/23 231 Dispo per imaging :) Chasidy Fernandez RN [...] No family history. She lives in a residential facility and is on Coumadin as she [...] Height: 1.575 m (5' 2") Medications HYDROcodone-acetaminophen (Trilla) 5-325 MG per tablet 1 tablet (has no administration in time range) HYDROcodone-acetaminophen (Trilla) 5-325 MG per tablet 1 tablet (1 tablet Oral Given 07/19/232030) 72-year-old female presents for frequent falls, is in a senior living for this purpose, complains of right hip pain and right knee pain and neck pain MDM elements: The patient presented with chief complaint of see above. The differential diagnosis associated with this patient's presentation includes right hip pain from contusion versus fracture of the right hip versus pelvic fracture. Will evaluate bilateral knees for underlying fractures. Patient is on Coumadin and fails [place] CT head rules and CT C-spine rules by virtue of age, needs CT head and CT cervical spine as well. Pain controlled with Trilla. No lab work required, this was mechanical fall to which the patient is very vulnerable and for which purpose she is in a senior living with PT and 24/7 wheelchair. Our workup consisted of ordering/reviewing: X-ray bilateral knees x-ray right femur CT pelvis without contrast, CT head and neck without contrast. To aid in management, I performed an independent interpretation of Xray(s) see below CT scan(s) see below. I also reviewed external records from [facility] to obtain collateral history. The patient will [...] this is why she lives in a senior living with 24/ monitoring and physical therapy that visits her every day. I encouraged her to stay in her wheelchair to get around safely, and if she is transferring from the wheelchair to the toilet or other maneuvers at home, she should do so with nursing staff or PT nearby. She is already on Trilla at home for pain so no additional [...] Mendez who is her osteoarthritis specialist in [place]; this is very good follow-up. The patient [...] toilet when she fell. She resides at [address] She currently is working with a physical therapist and is in a wheelchair. Patient hooked up to [employer] due to incontinence. She also has right knee bruising that is from her repeatedly hitting it on her wheelchair. She denies hitting her head or neck during fall. She is on coumadin. Call light within reach. documented in this encounter [facility] 07-20-2023 Emergency department Note [facility] an ambulette/wheelchair van. Chasidy MCCRACKEN spoke with Physician's to inform them that the pt is non ambulatory and needed a stretcher. Physician's states they will have a stretcher here "within the hour." Veronika Bae RN 07/20/23 0717 [facility] 07-20-2023 Hospital Discharge instructions Cuba Anna [...] should follow-up with Dr. Mendez of rheumatology [place] this week to ensure that you are [...] attachments cannot be sent through Care Everywhere.Osteoarthritis (Kittitian)Preventing Falls in Older Adults (Kittitian)Hip Pain ED (Kittitian)documented in this encounter [facility] 07-20-2023 Emergency department Note Patient pressed call light to request pain medication. States pain is in shoulders and down the back from laying on the tables. MD notified Gifty Cornell RN 07/20/23 0044 [facility] 07-19-2023 Emergency department Note Report given to Gifty MCCRACKEN & Chasidy RN. Patient still in radiology. Pia Caraballo RN 07/19/23 5537 [facility] 07-19-2023 Emergency department Note Dispo per imaging :) Chasidy Fernandez RN 07/19/23 3603 [facility] 07-19-2023 Emergency department Note Pt placed up for discharge. No discharge paperwork complete at this time. Once orders are complete and discharge paperwork complete by ER DR Pt will be discharged. Chasidy Fernandez RN 07/19/232251 [facility] 07-19-2023 Emergency department Note This RN requested orders from ER DR. Chasidy Fernandez RN 07/19/232025 [facility] 07-19-2023 Emergency department Triage note Patient is here for right hip pain. She was transferring to the toilet when she fell. She resides at [address] She currently is working with a physical therapist and is in a wheelchair. Patient hooked up to [employer] due to incontinence. She also has right knee bruising that is from her repeatedly hitting it on her wheelchair. She denies hitting her head or neck during fall. She is on coumadin. Call light within reach. [facility] 07-19-2023 Physician Emergency department Note EMERGENCY DEPARTMENT [...] No family history. She lives in a residential facility and is on Coumadin as she [...] Height: 1.575 m (5' 2") Medications HYDROcodone-acetaminophen (Trilla) 5-325 MG per tablet 1 tablet (has no administration in time range) HYDROcodone-acetaminophen (Trilla) 5-325 MG per tablet 1 tablet (1 tablet Oral Given 07/19/232030) 72-year-old female presents for frequent falls, is in a senior living for this purpose, complains of right hip pain and right knee pain and neck pain MDM elements: The patient presented with chief complaint of see above. The differential diagnosis associated with this patient's presentation includes right hip pain from contusion versus fracture of the right hip versus pelvic fracture. Will evaluate bilateral knees for underlying fractures. Patient is on Coumadin and fails [place] CT head rules and CT C-spine rules by virtue of age, needs CT head and CT cervical spine as well. Pain controlled with Trilla. No lab work required, this was mechanical fall to which the patient is very vulnerable and for which purpose she is in a senior living with PT and 12/01 wheelchair. Our workup consisted of ordering/reviewing: X-ray bilateral knees x-ray right femur CT pelvis without contrast, CT head and neck without contrast. To aid in management, I performed an independent interpretation of Xray(s) see below CT scan(s) see below. I also reviewed external records from [facility] to obtain collateral history. The patient will [...] this is why she lives in a senior living with 24/7 monitoring and physical therapy that visits her every day. I encouraged her to stay in her wheelchair to get around safely, and if she is transferring from the wheelchair to the toilet or other maneuvers at home, she should do so with nursing staff or PT nearby. She is already on Trilla at home for pain so no additional [...] Mendez who is her osteoarthritis specialist in [place]; this is very good follow-up. The patient [...] Medicine Provider Cuba Anna MD 07/20/23 0110 [facility] 09-06-2022 Emergency department Note RN called back from Residence for report after patient left. This RN updated RN. No questions or concerns Lucy Joens RN 09/06/22 1115 [facility] 09-06-2022 Emergency department Note RN called back from Residence for report after patient left. This RN updated RN. No questions or concerns Lucy Jones RN 09/06/22 1115 This RN attempted report at [facility] for patient. RN's busy, junior legal secretary took RN name and number to return call for report if wanted. Lucy Jones RN 09/06/22 1018 DM ETA 20-30 min ([id number]) Lucy Jones RN 09/06/22 0953 Patient resting with eyes closed. Respirations even and unlabored. RN called about work order for call light / panel. Will be there soon to fix. Lucy Jones RN 09/06/22 0985 Pt back in room Lucy Jones RN [...] 0226 Report of to bárbara Younger RN 09/06/22 022 Emergency Department Encounter Location: [facility] EMERGENCY DEPT Patient: Patsy Juan : [...] 445 ms QTC Interval 457 ms P [place] 49 degrees QRS [place] -29 degrees T Wave [place] 11 degrees CA Interval 149 ms XR shoulder 2+ views [...] Result Upper pelvis is excluded from the ufpqh-bw-vwam. No fracture or dislocation of the imaged [...] words are mis-transcribed.) OSMAN MCCORMACK MD [facility] Osman Mccormack MD 09/06/22 1523 Emergency Department Encounter Location: [facility] EMERGENCY DEPT Patient: Patsy Juan : [...] 445 ms QTC Interval 457 ms P [place] 49 degrees QRS [place] -29 degrees T Wave [place] 11 degrees CA Interval [address] head wo IV [...] Result Upper pelvis is excluded from the qcfbd-wh-fsso. No fracture or dislocation of the imaged [...] RN 09/06/22 0221 documented in this encounter [facility] 09-06-2022 Emergency department Note This RN attempted report at [facility] for patient. RN's busy, junior legal secretary took RN name and number to return call for report if wanted. Lucy Jones RN 09/06/22 1018 [facility] 09-06-2022 Emergency department Note DM ETA 20-30 min ([id number]) Lucy Jones RN 09/06/22 0953 [facility] 09-06-2022 Hospital Discharge instructions Gloria Frost [...] through Care Everywhere.Getting Up From a Fall (Kittitian)documented in this encounter [facility] 09-06-2022 Emergency department Note Patient resting with eyes closed. Respirations even and unlabored. RN called about work order for call light / panel. Will be there soon to fix. Lucy Jones RN 09/06/22 0944 [facility] 09-06-2022 History of Present illness Narrative Department of Trauma / Critical Care Tertiary Survey Date of Trauma: 09/06/2022 1:36 AM MARIANELA/HPI: 72 y.o. female status post fall from standing. The incident happened around 0120 on 09/06/22 at [facility]. When the event happened the patient was [...] or mass effect. Report Dictated on Workstation: [employer] Electronically Signed By: Tiago Charles Electronically Signed [...] cervical spine fracture. Report Dictated on Workstation: [employer] Electronically Signed By: Tiago Charles Electronically Signed [...] note: Upper pelvis is excluded from the zyeng-sr-zbcb. COMPARISON: None. FINDINGS: There is no evidence for fracture or dislocation. The hips joints are unremarkable. The imaged sacroiliac joints are normal. No bone lesion is identified. There is no soft tissue abnormality. Surgical clips project over the right groin. Upper pelvis is excluded from the vnroi-mn-oaxg. No fracture or dislocation of the imaged [...] 09/06/22 9:09 AM documented in this encounter [facility] 09-06-2022 Emergency department Note Pt back in room Lucy Jones RN 09/06/22 0832 [facility] 09-06-2022 Emergency department Note Pt at CT Lucy Jones RN 09/06/22 0826 [facility] 09-06-2022 Emergency department Note Patient yelling [...] this time Lucy Jones RN 09/06/22 0739 [facility] 09-06-2022 Note NOTE: This result is for medical treatment only. Analysis performed using non-forensic procedures. [facility] 09-06-2022 Emergency department Note Pt to x-ray in stable condition. Bárbara Hogan RN 09/06/22 0226 [facility] 09-06-2022 Emergency department Note Report of to bárbara Younger RN 09/06/22 022 [facility] 09-06-2022 Emergency department Note Bed: 23 Expected date: Expected time: Means of arrival: Comments: SX TEAM Aaron Wallace RN 09/06/22 0221 [facility] 09-06-2022 Physician Emergency department Note Emergency Department Encounter Location: [facility] EMERGENCY DEPT Patient: Patsy Juan : [...] 445 ms QTC Interval 457 ms P [place] 49 degrees QRS Fairfield -29 degrees T Wave [place] 11 degrees CA Interval 149 ms XR shoulder 2+ views [...] Result Upper pelvis is excluded from the tvend-sl-myai. No fracture or dislocation of the imaged [...] [employer] Osman Mccormack MD 09/06/22 1523 [facility] Phone: 09-06-2022 Physician Emergency department Note Emergency Department Encounter Location: [facility] EMERGENCY DEPT Patient: Patsy Juan : [...] 445 ms QTC Interval 457 ms P [place] 49 degrees QRS [place] -29 degrees T Wave [place] 11 degrees CA Interval [address] head wo IV [...] Result Upper pelvis is excluded from the uephn-in-zusd. No fracture or dislocation of the imaged [...] dictations but occasionally words are mis-transcribed.) Gloria Frost, DO [employer] Gloria Frost DO Resident 09/06/22 1314 [facility] Phone: 04-25-2022 Miscellaneous Notes Left a detailed message for patient. Let her know that new PCP will need to be notified if there is issues with filling medicaiton. Advised to contact office with questions. I will send patient a Fiixt message asking about PCP. I think she is now seeing a physician at her assisted living facility. Images from the original note were not included. DENIED. Isabela Petit LPN Prior Authorization has been completed online at [employer] for Cycanocobalamin, will await response. WILLIS- [email or web address] Please keep encounter open until final decision has been received and documented from insurance company. Isabela Petit LPN documented in this encounter [facility] 03-12-2022 Note Hospitalist Discharg e Summary [...] results reviewed, no signs of osteomyelitis. Appreciate unload associate recommendations On the day of discharge patient's [...] MG extended re (more content not included)... [facility] 03-12-2022 Hospital course Narrative Images from [...] results reviewed, no signs of osteomyelitis. Appreciate unload associate recommendations On the day of discharge patient's [...] Medications These medications were sent to [address] - [phone] - F [phone] [place] [id number] amoxicillin-clavulanate 875-125 MG per tablet doxycycline hyclate 100 MG capsule polyethylene glycol 17 g packet Recommended Follow-up: No follow-up provider specified. Readmission Risk Risk of Unplanned Readmission: 16 Complexity of Follow up: [] Moderate Complexity: follow up within 7-14 calendar days (52065) [x] Severe Complexity: follow up within 7 calendar days (83083) Follow up Testing, Pending results or Referrals [...] MD Division of Hospitalist Medicine Inpatient Medical Services/[facility] 03/12/2022, 2:01 PM Images from the original [...] results reviewed, no signs of osteomyelitis. Appreciate unload associate recommendations On the day of discharge patient's [...] as: DESYREL Vitamin D3 50 MCG (1999 HI) Caps warfarin 5 MG tablet Commonly known as: COUMADIN STOP taking these medications furosemide 20 MG tablet Commonly known as: LASIX guaiFENesin 600 MG extended release tablet Commonly known as: MUCINEX Where to Get Your Medications These medications were sent to [facility] [address] [place] [address] [place] - P [phone] - F [phone] [place] [id number] amoxicillin-clavulanate 875-125 MG per tablet doxycycline hyclate 100 MG capsule polyethylene glycol 17 g packet Recommended Follow-up: No follow-up provider specified. Readmission Risk Risk of Unplanned Readmission: 15 Complexity of Follow up: [] Moderate Complexity: follow up within 7-14 calendar days (86342) [x] Severe Complexity: follow up within 7 calendar days (66423) Follow up Testing, Pending results or Referrals [...] frame. Signed: Demetris Stone MD [facility] Medical Services/[facility] 03/11/2022, 1:36 PM documented in this encounter [facility] Work Phone: 03-11-2022 History of Present illness Narrative [facility] called this nurse to change time of picker. Pt agreed to stay till morning. This nurse called [place] [phone] to inform about new picker time of 9:30 am. Report called to Nurse Copeland at [facility]. Occupational Therapy Facility/Department: [facility] Occupational Therapy Daily Treatment Note Name: Randolph Hunter : 1950 Date of Service: 03/11/2022 Pt's chart reviewed. Holding therapy today due to >5 INR. Will continue to follow and re-attempt once within therapeutic range. Dianne Schuster OT Physical Therapy Facility/Department: [facility] Daily Treatment Note Name: Randolph Hunter : 1950 Date of Service: 03/11/2022 Pt's chart reviewed. Holding therapy today due to >5 INR. Will continue to follow and re-attempt once within therapeutic range. Jaida Matamroos, INFORMATICS CONSULTANT Occupational Therapy Facility/Department: [facility] Occupational Therapy Initial Assessment [...] endurance;Decreased high-level IADLs Assessment: Pt admitted from NH facility d/t fall and L LE cellulitis. [...] Making: Medium Complexity History: Pt admitted from NH facility d/t fall and L LE cellulitis. [...] Social/Functional History Social/Functional History Lives With: Spouse ([place] Type of Home: Assisted living Home Layout: [...] Assistance: Non-ambulatory Transfer Assistance: Needs assistance Active Neurology Physician Assistant: No Patient's Neurology Physician Assistant Info: daughter Mode of Transportation: Car Education: na Occupation: Retired Type of Occupation: worked at [employer] [place] Objective Heart Rate: 68 Heart Rate Source: [...] AROM: ~100 degrees shoulder flexion grossly observed [facility] Score [facility] Inpatient Daily Activity Raw Score: 16 (03/10/22 1444) [facility] Inpatient ADL T-Scale Score : 35.96 (03/10/22 1444) ADL Inpatient [facility] [address] 0-100% Score: 53.32 (03/10/22 1444) ADL Inpatient [facility] [facility] G-Code Modifier : CK (03/10/22 144) Goals [...] were not included. Hospitalist Progress Note 03/10/2022 [phone]: Please page me ([phone]) for patient care issues. [phone]: Please page [facility] night Hospitalist for any issues. [...] results reviewed, no signs of osteomyelitis. Appreciate unload associate recommendations Pharmacy is managing Coumadin dosing. -am labs, replace lytes prn -increase activity -DVT prophylaxis: [] Lovenox [] Heparin [] SCDs [x] Encourage ambulation [x] Already on Anticoagulation Advance Directive: Limited Discharge planning: TBD Demetris Stone MD Division of Hospitalist Medicine Inpatient Medical Services/[facility]: [phone] Occupational Therapy Facility/Department: [facility] Occupational Therapy Initial Assessment [...] Will follow. Thank you. Physical Therapy Facility/Department: [facility] Physical Therapy Initial Assessment [...] Social/Functional History Social/Functional History Lives With: Spouse ([place] Type of Home: Assisted living Home Layout: [...] Assistance: Non-ambulatory Transfer Assistance: Needs assistance Active Neurology Physician Assistant: No Patient's Neurology Physician Assistant Info: daughter Mode of Transportation: Car Education: na Occupation: Retired Type of Occupation: worked at [employer]: Within Functional Limits [employer] [...] to side-step toward the HOB. 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 Hospitalist Progress Note 03/09/2022 [phone]: Please page me ([phone]) for patient care issues. [phone]: Please page [facility] night Hospitalist for any issues. 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 [...] for the consult. Will continue to follow. Electronically signed by Aaron Garcia [facility] at 03/08/2022 8:39 PM EDT documented in this encounter [facility] Work Phone: [...] results reviewed, no signs of osteomyelitis. Appreciate unload associate recommendations On the day of discharge patient's [...] known as: DESYREL Vitamin D3 50 MCG (2000 UT) Caps warfarin 5 MG tablet Commonly known as: COUMADIN STOP taking these medications furosemide 20 MG tablet Commonly known as: LASIX guaiFENesin 600 MG extended release tablet Commonly known as: MUCINEX Where to Get Your Medications These medications were sent to [address] - P [phone] - F [phone] [place] [address] (more content not included)... [facility] 03-11-2022 Hospital Discharge instructions Cleo Graff LPN - 03/11/2022 11:55 AM EDT Your physician has ordered skilled home care services for you. Your home care will be provided by: [facility] [phone] Viktoriya Danielson RN - 03/11/2022 5:43 PM [...] Relation: Child Secondary Emergency Contact: Adam Hunter ([facility]) Mobile Relation: Spouse Past Surgical History: [...] Dependent Dressing Dependent Toileting Dependent Feeding Independent Hydroblaster Assisted Med Delivery whole Wound Care Documentation [...] 600 [P.O.:600] Out: 800 [Urine:800] Safety Concerns: {[facility] Safety Concerns:362661267} Impairments/Disabilities: {[facility] Impairments/Disabilities:798170728 } Nutrition Therapy: Current Nutrition Therapy: - Oral Diet: General Routes of Feeding: Oral Liquids: Thin Liquids Daily Fluid Restriction: no Last Modified Barium Swallow with Video (Video Swallowing Test): not done Treatments at the Time of Hospital Discharge: Respiratory Treatments: no Oxygen Therapy: is not on home oxygen therapy. Ventilator: - No ventilator support Rehab Therapies: none Weight Bearing Status/Restrictions: {[facility] Weight Bearin} Other Medical Equipment (for information [...] applicable) Name: Address: Dialysis Schedule: Phone: Fax: Sql Server Dba Developer/Engraver Letter signature: {Esignature:724213368} PHYSICIAN SECTION Prognosis: {Prognosis:4076494045} Condition at Discharge: {MH Patient Condition:755169076} Rehab Potential (if transferring to Rehab): {Prognosis:1102163632} Recommended Labs or Other Treatments After Discharge: Physician Certification: I certify the above information and transfer of Randolph Hunter is necessary for the continuing treatment of the diagnosis listed and that she requires {Admit to Appropriate Level of Care:49452} for {GREATER/LESS:100124025} 30 days. Update Admission H&P: {CHP DME Changes in HandP:564893679} PHYSICIAN SIGNATURE: {Esignature:089080687} documented in this encounter [employer] Work Phone: 03-06-2022 Instructions Steven Pelaez - 03/06/2022 9:21 AM EDT Would recommend natalia to left foot daily Continue with padding on dressing to eliminate pressure Would highly recommend use of heel boots while sleeping to prevent pressure sores from developing. documented in this encounter [facility] 03-06-2022 History of Present illness Narrative [...] (H) 4.3 - 5.6 % Final Comment: [place] [employer] guidelines indicate that patients with [...] directed once a month. 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 Patient stated that she is at a assisted living facility and they stated by law they most have and order from physician to preform wound care. Please place order. Erlinda Ramsey LPN documented in this encounter [facility] 02-27-2022 History of Present illness Narrative Patient daughter picked up natalia. Erlinda Ramsey LPN documented in this encounter [facility] 02-27-2022 Miscellaneous Notes Returned patients call. Informed patient that her daughter can come picker natalia we will just have to [...] instructions. Patient can come to office to picker natalia. We will schedule a nurse visit. Erlinda Ramsey LPN Images from the original note were not included. Steven Matamoros RN; [facility] Podiatry Pool 52 minutes ago (3:52 PM) I have not yet ordered the natalia to pharmacy. If she wishes to picker at office, that may be the easiset option Steven Pelaez DPM Patient called in asking if Natalia has been sent to pharmacy? Patient asking if she can come by and picker Natalia from the office? Patient states she had to cancel this morning's appointment because her transportation never showed. Patient asking for order for Natalia to be sent to [facility]. Rescheduled follow up appointment for 03/06. documented in this encounter [facility] 02-12-2022 Miscellaneous Notes Patient called in looking for results. Message from Dr. Pelaez given to patient. She verbalized understanding. documented in this encounter [facility] 02-10-2022 History of Present illness Narrative [...] AM documented in this encounter [facility] 02-10-2022 Instructions Steven Pelaez - 02/10/2022 [...] reduction. documented in this encounter [facility] 02-10-2022 History of Present illness Narrative Chief Complaint: This 71 year old female who presents with chief complaint:ulceration of left 1st metatarsal HPI Patient presents to clinic for evaluation of left foot. Patient has ulceration to the plantar aspect of left 1st metatarsa. It apparently has been present for 1.5 months. She has been seeing a unload associate in [place] who has been debriding and applying topical antibiotic cream. Patient is not currently wearing surgical shoe. She had similar ulceraiton last year and was treated with natalia. When she mentioned this to her unload associate, she was referred here. She was advised [...] directed once a month. blood sugar diagnostic (L99[employer]com VERIO TEST STRIPS) test strip Test blood [...] H* Mental Status Change Penicillins Hives Dioxicillin Vnnxkbr-Gcd-Pmb Red* Myalgia PAST SURGICAL HISTORY Procedure Laterality [...] mellitus, with fat layer exposed ([facility]) PLAN: 1. History and physical examination performed. [...] weeks Steven Pelaez DPM Podiatry [address] [facility] [address] Dept: [phone] Dept AMB ROOMING INTAKE FLOWSHEET DATA Risk [...] LPN documented in this encounter [facility] 11-30-2021 Miscellaneous Notes Left a detailed message for pt with information listed below. Ava Rdz LPN TC to pt, no answer, unable to leave message d/t voicemail box is full and can not accept new messages. Alberto Carpio LPN Same dose, recheck 2 weEdwin Beaulieu PA-C Recently in assisted living, Nurse was in today gave her dosage instructions. They company that [employer] is dealing with will send the INR report in a couple days. INR is 2.4, Taking 7.5mg Mon, Wed, 5.0mg all other days, no change in diet, no missed doses, no change in medication, no unusual bruising/bleeding. Bonnie Allen LPN documented in this encounter [facility] 11-19-2021 Miscellaneous Notes Detailed message left [...] no documented in this encounter [facility] 11-11-2021 Miscellaneous Notes Patient calling to [...] changes. documented in this encounter [facility] 10-30-2021 Miscellaneous Notes Patient notified of [...] no documented in this encounter [facility] 10-15-2021 Miscellaneous Notes Left a detailed [...] LPN documented in this encounter [facility] 10-15-2021 Miscellaneous Notes Spoke with pt and went over the results. Pt verbalizes understanding. Ava Rdz LPN documented in this encounter [facility] 10-14-2021 History of Present illness Narrative [...] PM documented in this encounter [facility] 10-09-2021 Miscellaneous Notes Pt called and [...] Patient calls and states that her previous quality lab technician had moved out of country. Patient states that she is in process of moving into assisted living and the [facility] will see her in regards to this. Patient asking if this can be filled for a 30 day supply? Please review and advise, Lexi Arce RN TC to pt. LM to call office, ask for triage nurse to get updates. Travis Chambers LPN [employer] accepting patient transfer should refill medication. Who are the current and future providers? We generally don't prescribe this medication. Thanks, Edwin Cobian PA-C Pt is asking if provider will order this medication for her for 1 month. She states her quality lab technician will not refill it for her because [...] RN documented in this encounter [facility] 10-08-2021 Miscellaneous Notes Patient instructed of [...] issues. documented in this encounter [facility] 10-01-2021 Miscellaneous Notes Patient instructed of [...] issues. documented in this encounter [facility] 10-01-2021 Miscellaneous Notes Refaxed form with [...] [facility] will not [facility] her have the higher dose. Please call and advise. documented in this encounter [facility] 09-27-2021 Miscellaneous Notes Patient notified of results, verbalizes understanding of instructions. Travis Chambers LPN Thyroid is improving but still slightly low. Can we change synthroid to 150 mcg and recheck tsh in six weeks documented in this encounter [facility] 09-26-2021 Instructions Baudilio Sultana MD - [...] immediately. documented in this encounter [facility] 09-26-2021 History of Present illness Narrative Patient presents with: Physical: moving into assisted living HPI: Patient presents today for office visit for follow up. Needs forms completed for assisted living facility[facility] in [place]. She is both excited and nervous about the move. Will be transitioning to [facility] care. She asked us to do the [place] through October until the new physician has [...] directed once a month. blood sugar diagnostic (L99[employer]com VERIO TEST STRIPS) test strip Test blood [...] H* Mental Status Change Penicillins Hives Dioxicillin Qlpcfrb-Ppl-Aiy Red* Myalgia PAST MEDICAL HISTORY Diagnosis Date [...] CONSULT TO PHYSICAL THERAPY - CONSULT TO DIAL BUFFER 2. Carotid artery disease, unspecified laterality, unspecified [...] prn. documented in this encounter [facility] 09-25-2021 Miscellaneous Notes Patient notified and [...] no documented in this encounter [facility] 09-18-2021 Miscellaneous Notes Patient notified and [...] issues. documented in this encounter [facility] 2021 Miscellaneous Notes TC to pt, [...] like for her to take today. Del Babulski, RN Lets have her take 2.5 mg on and 5 mg on all other days of the week. Recheck INR in one week. Najma Dobbs APRN.HOT DIPPER Last INR: INR (POCT) 1.9 (EXT) 2021 [...] doses. documented in this encounter [facility] 01-29-2021 History of Present illness Narrative [...] 2021 1:01 PM documented in this encounter [facility] 01-04-2018 History of Past i llness Narrative [...] encounter (statuses as of 09/16/2021) [facility] History of Past illness Narrative* Problem [...] encounter (statuses as of 09/18/2021) [facility] of Past illness Narrative* Problem [...] encounter (statuses as of 2021) [facility] of Past illness Narrative* Problem [...] encounter (statuses as of 09/25/2021) [facility] of Past illness Narrative* Problem [...] encounter (statuses as of 09/26/2021) [facility] of [facility] Narrative* Problem [...] encounter (statuses as of 09/27/2021) [facility] of Past [facility] Narrative* Problem [...] encounter (statuses as of 10/01/2021) [facility] Narrative* Problem [...] encounter (statuses as of 10/01/2021) [facility] of [facility] Narrative* Problem [...] encounter (statuses as of 10/09/2021) [facility] of [facility] Narrative* Problem [...] encounter (statuses as of 10/15/2021) [facility] of [facility] Narrative* Problem Noted Date Resolved Date Type 2 diabetes mellitus with peripheral neuropa thy 01/04/2018 07/08/2018 Weakness of lower extremity 11/25/2016 040 12/2021 Overview: Wheel chair bound since nerve [...] encounter (statuses as of 10/15/2021) [facility] of Past illness Narrative* Problem [...] encounter (statuses as of 10/15/2021) [facility] of Past illness Narrative* Problem [...] encounter (statuses as of 10/30/2021) [facility] of Past illness Narrative* Problem [...] encounter (statuses as of 11/11/2021) [facility] of Past illness Narrative* Problem [...] encounter (statuses as of 11/19/2021) [facility] of Past illness Narrative* Problem [...] encounter (statuses as of 11/30/2021) [facility] of [facility] illness Narrative* Problem [...] encounter (statuses as of 12/23/2021) [facility] of [facility] Narrative* Problem [...] encounter (statuses as of 02/10/2022) [facility] Narrative* Problem [...] encounter (statuses as of 02/11/2022) [facility] of [facility] Narrative* Problem [...] encounter (statuses as of 02/12/2022) [facility] of Past illness Narrative* Problem [...] encounter (statuses as of 02/27/2022) [facility] Past [facility] Narrative* Problem [...] encounter (statuses as of 03/03/2022) [facility] Narrative* Problem [...] encounter (statuses as of 03/06/2022) [facility] Narrative* Problem [...] encounter (statuses as of 04/25/2022) [facility] Narrative* Problem [...] encounter (statuses as of 06/25/2022) [facility] Narrative* Problem [...] encounter (statuses as of 05/04/2023) [facility] of Past [facility] Narrative* Problem [...] unspecified whether generalized or localized, lower leg 12/26/201312/2013 Cough 09/09/2013 11/08/2014 Laryngitis 09/09/2013 11/08/2014 Sinusitis, [...] encounter (statuses as of 05/04/2023) [facility] Diagnosis History of pulmonary embolism Personal history of pulmonary embolism [facility] Diagnosis History of pulmonary embolism Personal history of pulmonary embolism [facility] Diagnosis Cerebral palsy, unspecified type (HCC)- [...] or radiculitis nos documented in this encounter [facility] noteNo assessment information availableWTuscarawas Hospital Work Phone: Evaluation note* Diagnosis Acquired hypothyroidism Unspecified hypothyroidism documented in this encounter [facility] note* Diagnosis Disorder of bone and cartilage Disorder of bone and cartilage, unspecified documented in this encounter [facility] note* Diagnosis Encounter for screening mammogram for breast cancer documented in this encounter [facility] note* Diagnosis Type 2 diabetes, controlled, with neuropathy (HCC)- Primary Type II or unspecified type diabetes mellitus with neurological manifestations, not stated as uncontrolled Diabetic ulcer of toe 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, with fat layer exposed (HCC) documented in this encounter [facility] note* Diagnosis Diabetic ulcer of toe 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, with fat layer exposed (HCC) documented in this encounter [facility] note* Diagnosis Diabetic ulcer of toe 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, with fat layer exposed (HCC)- Primary documented in this encounter [facility] note* Diagnosis Diabetic ulcer of toe 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, with fat layer exposed (HCC)- Primary Type 2 diabetes, controlled, with neuropathy (HCC) Type II or unspecified type diabetes mellitus with neurological manifestations, not stated as uncontrolled documented in this encounter [facility] note* Diagnosis Diabetic ulcer of other part 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, with fat layer exposed (HCC)- Primary Cellulitis of left lower extremity Cellulitis and abscess of leg, except foot PE (pulmonary thromboembolism) (HCC) Chronic pulmonary embolism Cellulitis Cellulitis and abscess of unspecified site documented in this encounter [facility] Work Phone: Evaluation note* Diagnosis Diabetic ulcer of toe 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, with fat layer exposed ([facility])- Primary documented in this encounter [facility] note* Diagnosis Fall, initial encounter- Primary Skin tear of hand without complication Cephalohematoma Other injuries to scalp Acute pain of right shoulder documented in this encounter [facility] note* Diagnosis Exacerbation of asthma, unspecified asthma severity, unspecified whether persistent Hyperparathyroidism, primary ([facility]) Primary hyperparathyroidism Neuropathy Mononeuritis of unspecified site Osteoarthritis of AC (acromioclavicular) joints, bilateral Vitamin D deficiency Unspecified vitamin D deficiency Blister Other, multiple, and unspecified sites, blister, without mention of infection Candidiasis of breast Other candidiasis of other specified sites Lupus anticoagulant disorder ([facility]) Primary hypercoagulable state Cerumen in auditory canal on examination Chronic kidney disease, unspecified CKD stage Fall, sequela Knee pain, unspecified chronicity, unspecified laterality Chronic thromboembolic pulmonary hypertension (HCC) Other chronic pulmonary heart diseases Strain of calf muscle, unspecified laterality, subsequent encounter Traumatic ecchymosis of lower back, sequela Yeast infection of the skin Candidiasis of skin and nails documented in this encounter [facility] note* Diagnosis Frequent falls- Primary Right hip pain Pain in joint, pelvic region and thigh Contusion of right knee, initial encounter Osteoarthritis, unspecified osteoarthritis type, unspecified site documented in this encounter [facility] note* Diagnosis Diabetic ulcer of left foot associated with diabetes mellitus due to underlying condition, unspecified part of foot, unspecified ulcer stage ([facility])- Primary Left leg cellulitis documented in this encounter [facility] note* Diagnosis Pressure ulcer of right foot, stage 3 ([facility])- Primary documented in this encounter [facility] note* Diagnosis Chronic right shoulder pain Pain in joint, shoulder region documented in this encounter [facility] note* Diagnosis Acute cough- Primary documented in this encounter [facility] note* Diagnosis Fall at home, initial encounter- Primary Cerebral palsy, unspecified type ([facility]) Brachial neuritis or radiculitis Brachial neuritis or radiculitis nos Acute pain of right shoulder Left knee pain, unspecified chronicity Diabetic polyneuropathy associated with type 2 diabetes mellitus ([facility]) Neuropathy Mononeuritis of unspecified site Type 2 diabetes, controlled, with neuropathy (HCC) Type II or unspecified type diabetes mellitus with neurological manifestations, not stated as uncontrolled Atherosclerosis of ely shoshone coronary artery 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 Other pulmonary embolism without acute cor pulmonale, unspecified chronicity (HCC) Debility Debility, unspecified [facility] Diagnosis Fall at home, initial encounter- [...] Neuropathy Mononeuritis of unspecified site Atherosclerosis of ely sh[place] coronary artery 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 Other pulmonary embolism without acute cor pulmonale, unspecified chronicity (HCC) Debility Debility, unspecified documented in this encounter [facility] note* Diagnosis Fall at home, [...] manifestations, not stated as uncontrolled Atherosclerosis of [place] coronary artery 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 Other pulmonary embolism without acute cor pulmonale, unspecified chronicity (HCC) Debility Debility, unspecified documented in this encounter [facility] note* Diagnosis Primary osteoarthritis of left knee- Primary Primary localized osteoarthrosis, lower leg [facility] Diagnosis Sprain of left ankle, unspecified ligament, initial encounter- Primary Ankle instability, left Chronic pain of left ankle [facility] Diagnosis Sprain of left ankle, unspecified ligament, initial encounter Ankle instability, left documented in this encounter [facility] for referral (narrative)* Diagnostic Procedure Only (Routine) - Pending Review Specialty Diagnoses / Procedures Referred By Contsilvia t Referred To Contact BR IMAGING Diagnoses Encounter for screening mammogram for breast cancer Procedures FUAD SCREENING SCREENING MAMMOGRAPHY BI 2-VIEW BREAST INC CAD Baudilio Sultana MD [address] [place] [address] [facility] [address] [place] [address] Referral ID Status Reason Start Date Expiration Date Visits Requested Visits Authorized [id number] Pending Review Auto-Generat ed Referral 12/18/2021 01/17/2023 1 1 [facility] for referral (narrative)* Diagnostic Procedure Only (Routine) - Closed Specialty Diagnoses / Procedures Referred By Contac t Referred To Contact XR IMAGING Diagnoses Diabetic ulcer of toe 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, with fat layer exposed (HCC) Procedures XR FOOT GENERAL 3V AP/LAT/OBL LEFT RADEX FOOT COMPLETE MINIMUM 3 VIEWS Steven Pelaez [address] [place] [address] Xr Imaging Referral ID Status Reason Start Date Expiration Date V isits Requested Visits Authorized [id number] Closed Auto-Generate d Referral 02/10/2022 03/12/2023 1 1 [facility] for referral (narrative)* Diagnostic Procedure Only (Routine) - Closed Specialty Diagnoses / Procedures Referred By Contac t Referred To Contact XR IMAGING Diagnoses Diabetic ulcer of toe 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, with fat layer exposed (HCC) Procedures XR FOOT GENERAL 3V AP/LAT/OBL LEFT RADEX FOOT COMPLETE MINIMUM 3 VIEWS Steven Pelaez [address] [place] [address] Xr Imaging Referral ID Status Reason Start Date Expiration Date V isits Requested Visits Authorized [id number] Closed Auto-Generate d Referral 02/10/2022 03/12/2023 1 1 T [facility] for referral (narrative)No reason for referral information [facility]WT[facility] Work Phone: [facility] Narrative* Diagnostic Procedure Only (Routine) - Closed Specialty Diagnoses / Procedures Referred By Enrique t Referred To Contact Radiology / RADIO BONE DENSITY [facility] Diagnoses Disorder of bone and cartilage [M89.9, M94.9] Procedures BONE DENSITY ADULT 225 Baudilio Sultana MD [address] [place] [address] [facility] [address] [place] [address] Referral ID Status Reason Start Date Expiration Date Visits Re quested Visits Authorized [id number] Closed 10/14/2021 06/21/2022 1 1 [facility] for visit Narrative* Diagnostic Procedure Only (Routine) - Closed Specialty Diagnoses / Procedures Referred By Enrique t Referred To Contact XR IMAGING Diagnoses Diabetic ulcer of toe 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, with fat layer exposed (HCC) Procedures XR FOOT GENERAL 3V AP/LAT/OBL LEFT RADEX FOOT COMPLETE MINIMUM 3 VIEWS Steven Pelaez [address] [place] [address] Xr Imaging Referral ID Status Reason Start Date Expiration Date V isits Requested Visits Authorized [id number] Closed Auto-Generate d Referral 02/10/2022 03/12/2023 1 1 [facility] for visit Narrative* Diagnostic Procedure Only (Routine) - Closed Specialty Diagnoses / Procedures Referred By Enrique t Referred To Contact XR IMAGING Diagnoses Sprain of left ankle, unspecified ligament, initial encounter Ankle instability, left Procedures XR TIBIA FIBULA 2V AP/LAT LEFT RADIOLOGIC EXAMINATION TIBIA & FIBULA 2 VIEWS Steven Pelaez [address] [facility] [place] [address] Phone: tel: fax: [place] [phone] Referral ID Status Reason Start Date Expiration Date V isits Requested Visits Authorized [id number] Closed Auto-Generate d Referral 10/27/2024 11/26/2025 1 1 [facility] Summary Purpose Family History No Family [...] FoundDocuments on File Type Date Recorded Patient Assistant Hairstylist Expl anation Advance Directive(s) 11/24/2016 2:36 PM Advance Directive(s) 10/24/2016 10:01 AM Advance Directive(s) 12/26/2013 2:29 PM Documents on File Type Date Recorded Patient Assistant Hairstylist Expl anation Advance Directive(s) 11/24/2016 2:36 PM Advance Directive(s) 10/24/2016 10:01 AM Advance Directive(s) 12/26/2013 2:29 PM Advance Directive Response Recorded Date/ Time Advance Directives Yes January 04 7:42pm Living Will Yes April 22 10:07pm Power of Boarder Steam Yes April 22, 2021 10:07pm Documents on File Type Date Recorded Patient Assistant Hairstylist Expl anation Advance Directive(s) 12/26/2013 2:29 PM Documents on File Type Date Recorded Patient Assistant Hairstylist Expl anation Advance Directive(s) 12/26/2013 2:29 PM Latest Code Status on File Code Status Date Activated Date Inactivated Comments Limited 03/08/2022 4:21 PM Intubation/Re-intubation at the time of arrest: No Defibrillation/Cardioversion: No Chest Compressions: No Resuscitative Medications: Yes Healthcare Agents on File Name Relationship Healthcare Agent Relationshi p Communication Lisha Holly Child Primary Decision Maker Documents on File Type Date Recorded Patient Assistant Hairstylist Expl anation DNR (Do Not Resuscitate) 12/18/2023 10:52 AM Advance Directive Response Recorded Date/ Time Advance Directives Yes January 04 7:42pm Reason for Referral Specialty Diagnoses / Procedures Referred By Contac t Referred To Contact [facility] Diagnoses Cerebral palsy, unspecified type (HCC) Procedures CONSULT TO DIAL BUFFER OCCUPATIONAL THERAPY EVAL HIGH COMPLEX 60 MINS Baudilio Sultana MD [address] [place] [address] [facility] [address] [address] Referral ID Status Reason Start Date Expiration Date Visits Requested Visits Authorized [id number] Pending Review Auto-Generat ed Referral 09/26/2021 09/26/2022 1 1 Specialty Diagnoses / Procedures Referred By Contac t Referred To Contact [facility] Diagnoses Cerebral palsy, unspecified type (HCC) Procedures CONSULT TO PHYSICAL THERAPY PHYSICAL THERAPY EVALUATION HIGH COMPLEX 45 MINS Baudilio Sultana MD [address] [place] [address] [facility] [address] [address] Referral ID Status Reason Start Date Expiration Date Visits Requested Visits Authorized [id number] Pending Review Auto-Generat ed Referral 09/26/2021 09/26/2022 1 1 Specialty Diagnoses / Procedures Referred By Contac t Referred To Contact [facility] Diagnoses Carotid artery disease, unspecified laterality, unspecified type (HCC) Procedures US CAROTID ARTERIES DUSTIN VAS LAB DUPLEX SCAN EXTRACRANIAL ART COMPL BI STUDY Baudilio Sultana MD [address] [place] [address] [facility] [address] [address] Referral ID Status Reason Start Date Expiration Date Visits Requested Visits Authorized [id number] Additional Clinical Info Needed Auto-Generat ed Referral 09/26/2021 09/26/2022 1 1 Specialty Diagnoses / Procedures Referred By Contac t Referred To Contact Wound Care / IP Unit Diagnoses Diabetic ulcer of other part 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, with fat layer exposed (HCC) Ritika Fonseca, HEATING AND VENTILATING DRAFTER - HOT DIPPER [address] [place] [address] [facility] [address] [place] [address] Referral ID Status Reason Start Date Expiration Date V isits Requested Visits Authorized [id number] Open Specialty Services Required 03/11/2022 03/11/2023 1 1 Scheduling Instructions [facility]/Hyperbaric [facility] [address] [place] [address] [facility] Medicine is located on the ground floor of [facility] (just behind registration). Bring photo ID and [...] Visit Chief Complaint HOME DRAW LAB WORK Chief Complaint Admit Date PENITENTIARY LAB WORK December 05, 2024 5: 00am PENITENTIARY LAB WORK December 19, 2024 5: 00am PENITENTIARY LAB WORK January 02, 2025 4: 00am PENITENTIARY LAB WORK January 03, 2025 4: 45am PENITENTIARY LAB WORK January 09, 2025 4: 00am LAB WORK January 17, 2025 4:00 am PENITENTIARY LAB WORK January 24, 2025 5 :00am PENITENTIARY LAB WORK January 31, 2025 7:25am LABWORK February 01, 2025 5: 00am PENITENTIARY LAB WORK February 07, 2025 5:00am PENITENTIARY LAB WORK February 21 4:00am PENITENTIARY LAB WORK March 02 5:00am LABWORK March 08, 2025 7:10am Additional Source Comments INFORMATION SOURCE (unrecogn ized section and content) DATE CREATED AUTHOR 12/11/2017 [facility] DATE CREATED AUTHOR AUTHOR'S ORGANIZ ATION 12/11/2017 [facility] DATE CREATED AUTHOR AUTHOR'S ORGANIZ ATION 03/31/2022 [facility] DATE CREATED AUTHOR AUTHOR'S ORGANIZ ATION 09/08/2022 [facility] DATE CREATED AUTHOR AUTHOR'S ORGANIZ ATION 07/11/2024 [facility] DATE CREATED AUTHOR AUTHOR'S ORGANIZ ATION 10/01/2024 [facility] DATE CREATED AUTHOR AUTHOR'S ORGANIZ ATION 11/09/2024 [facility] DATE CREATED AUTHOR AUTHOR'S ORGANIZ ATION 03/26/2025 [facility] DATE CREATED AUTHOR AUTHOR'S ORGANIZ ATION 04/09/2025 [facility] Source Comments (unrecognize d section and content) In the event this informatio n is protected by the Federal Confidentiality of Alcohol and Drug Abuse Patient Records regulations: The Federal rules restrict any use of the information to criminally investigate or prosecute any alcohol or drug abuse patient.[facility] the event this information is protected by the Federal Confidentiality of Alcohol and Drug Abuse Patient Records regulations: The Federal rules restrict any use of the information to criminally investigate or prosecute any alcohol or drug abuse patient.[facility] Hospital[facility] the event this information is protected by the Federal Confidentiality of Alcohol and Drug Abuse Patient Records regulations: The Federal rules restrict any use of the information to criminally investigate or prosecute any alcohol or drug abuse patient.[facility] Hospital[facility] the event this information is protected by the Federal Confidentiality of Alcohol and Drug Abuse Patient Records regulations: The Federal rules restrict any use of the information to criminally investigate or prosecute any alcohol or drug abuse patient.[facility] HospitalIn the event this information is protected by the Federal Confidentiality of Alcohol and Drug Abuse Patient Records regulations: The Federal rules restrict any use of the information to criminally investigate or prosecute any alcohol or drug abuse patient.[facility] Hospital[facility] the event this information is protected by the Federal Confidentiality of Alcohol and Drug Abuse Patient Records regulations: The Federal rules restrict any use of the information to criminally investigate or prosecute any alcohol or drug abuse patient.[facility] Hospital[facility] the event this information is protected by the Federal Confidentiality of Alcohol and Drug Abuse Patient Records regulations: The Federal rules restrict any use of the information to criminally investigate or prosecute any alcohol or drug abuse patient.[facility] HospitalIn the event this information is protected by the Federal Confidentiality of Alcohol and Drug Abuse Patient Records regulations: The Federal rules restrict any use of the information to criminally investigate or prosecute any alcohol or drug abuse patient.[facility] HospitalIn the event this information is protected by the Federal Confidentiality of Alcohol and Drug Abuse Patient Records regulations: The Federal rules restrict any use of the information to criminally investigate or prosecute any alcohol or drug abuse patient.[facility] HospitalIn the event this information is protected by the Federal Confidentiality of Alcohol and Drug Abuse Patient Records regulations: The Federal rules restrict any use of the information to criminally investigate or prosecute any alcohol or drug abuse patient.[facility] HospitalIn the event this information is protected by the Federal Confidentiality of Alcohol and Drug Abuse Patient Records regulations: The Federal rules restrict any use of the information to criminally investigate or prosecute any alcohol or drug abuse patient.[facility] HospitalIn the event this information is protected by the Federal Confidentiality of Alcohol and Drug Abuse Patient Records regulations: The Federal rules restrict any use of the information to criminally investigate or prosecute any alcohol or drug abuse patient.[facility] HospitalIn the event this information is protected by the Federal Confidentiality of Alcohol and Drug Abuse Patient Records regulations: The Federal rules restrict any use of the information to criminally investigate or prosecute any alcohol or drug abuse patient.[facility] HospitalIn the event this information is protected by the Federal Confidentiality of Alcohol and Drug Abuse Patient Records regulations: The Federal rules restrict any use of the information to criminally investigate or prosecute any alcohol or drug abuse patient.[facility] HospitalIn the event this information is protected by the Federal Confidentiality of Alcohol and Drug Abuse Patient Records regulations: The Federal rules restrict any use of the information to criminally investigate or prosecute any alcohol or drug abuse patient.[facility] HospitalIn the event this information is protected by the Federal Confidentiality of Alcohol and Drug Abuse Patient Records regulations: The Federal rules restrict any use of the information to criminally investigate or prosecute any alcohol or drug abuse patient.[facility] HospitalIn the event this information is protected by the Federal Confidentiality of Alcohol and Drug Abuse Patient Records regulations: The Federal rules restrict any use of the information to criminally investigate or prosecute any alcohol or drug abuse patient.[facility] HospitalIn the event this information is protected by the Federal Confidentiality of Alcohol and Drug Abuse Patient Records regulations: The Federal rules restrict any use of the information to criminally investigate or prosecute any alcohol or drug abuse patient.[facility] HospitalIn the event this information is protected by the Federal Confidentiality of Alcohol and Drug Abuse Patient Records regulations: The Federal rules restrict any use of the information to criminally investigate or prosecute any alcohol or drug abuse patient.[facility] HospitalIn the event this information is protected by the Federal Confidentiality of Alcohol and Drug Abuse Patient Records regulations: The Federal rules restrict any use of the information to criminally investigate or prosecute any alcohol or drug abuse patient.[facility] HospitalIn the event this information is protected by the Federal Confidentiality of Alcohol and Drug Abuse Patient Records regulations: The Federal rules restrict any use of the information to criminally investigate or prosecute any alcohol or drug abuse patient.[facility] HospitalIn the event this information is protected by the Federal Confidentiality of Alcohol and Drug Abuse Patient Records regulations: The Federal rules restrict any use of the information to criminally investigate or prosecute any alcohol or drug abuse patient.[facility] HospitalIn the event this information is protected by the Federal Confidentiality of Alcohol and Drug Abuse Patient Records regulations: The Federal rules restrict any use of the information to criminally investigate or prosecute any alcohol or drug abuse patient.[facility] HospitalIn the event this information is protected by the Federal Confidentiality of Alcohol and Drug Abuse Patient Records regulations: The Federal rules restrict any use of the information to criminally investigate or prosecute any alcohol or drug abuse patient.[facility] HospitalIn the event this information is protected by the Federal Confidentiality of Alcohol and Drug Abuse Patient Records regulations: The Federal rules restrict any use of the information to criminally investigate or prosecute any alcohol or drug abuse patient.[facility] HospitalIn the event this information is protected by the Federal Confidentiality of Alcohol and Drug Abuse Patient Records regulations: The Federal rules restrict any use of the information to criminally investigate or prosecute any alcohol or drug abuse patient.[facility] HospitalIn the event this information is protected by the Federal Confidentiality of Alcohol and Drug Abuse Patient Records regulations: The Federal rules restrict any use of the information to criminally investigate or prosecute any alcohol or drug abuse patient.[facility] HospitalIn the event this information is protected by the Federal Confidentiality of Alcohol and Drug Abuse Patient Records regulations: The Federal rules restrict any use of the information to criminally investigate or prosecute any alcohol or drug abuse patient.[facility] HospitalIn the event this information is protected by the Federal Confidentiality of Alcohol and Drug Abuse Patient Records regulations: The Federal rules restrict any use of the information to criminally investigate or prosecute any alcohol or drug abuse patient.[facility] HospitalIn the event this information is protected by the Federal Confidentiality of Alcohol and Drug Abuse Patient Records regulations: The Federal rules restrict any use of the information to criminally investigate or prosecute any alcohol or drug abuse patient.[facility] HospitalIn the event this information is protected by the Federal Confidentiality of Alcohol and Drug Abuse Patient Records regulations: The Federal rules restrict any use of the information to criminally investigate or prosecute any alcohol or drug abuse patient.[facility] HospitalIn the event this information is protected by the Federal Confidentiality of Alcohol and Drug Abuse Patient Records regulations: The Federal rules restrict any use of the information to criminally investigate or prosecute any alcohol or drug abuse patient.[facility] HospitalIn the event this information is protected by the Federal Confidentiality of Alcohol and Drug Abuse Patient Records regulations: The Federal rules restrict any use of the information to criminally investigate or prosecute any alcohol or drug abuse patient.[facility] HospitalIn the event this information is protected by the Federal Confidentiality of Alcohol and Drug Abuse Patient Records regulations: The Federal rules restrict any use of the information to criminally investigate or prosecute any alcohol or drug abuse patient.[facility] HospitalIn the event this information is protected by the Federal Confidentiality of Alcohol and Drug Abuse Patient Records regulations: The Federal rules restrict any use of the information to criminally investigate or prosecute any alcohol or drug abuse patient.[facility] HospitalIn the event this information is protected by the Federal Confidentiality of Alcohol and Drug Abuse Patient Records regulations: The Federal rules restrict any use of the information to criminally investigate or prosecute any alcohol or drug abuse patient.[facility] HospitalIn the event this information is protected by the Federal Confidentiality of Alcohol and Drug Abuse Patient Records regulations: The Federal rules restrict any use of the information to criminally investigate or prosecute any alcohol or drug abuse patient.[facility] Care Teams (unrecognized sec tion and content) Fitting Room Attendant Relationship Specialty Start Date End Date Baudilio Sultana MD [address], [place] [id number] PCP - General Family Practice 04/01/18 [facility] 10/12/17 Fitting Room Attendant Relationship Specialty Start Date End Date Baudilio Sultana MD [address], [place] [id number] PCP - General Family Practice 04/01/18 [facility] 10/12/17 Fitting Room Attendant Relationship Specialty Start Date End Date Baudilio Sultana MD [address], [place] [id number] PCP - General Family Practice 04/01/18 [facility] 10/12/17 Fitting Room Attendant Relationship Specialty Start Date End Date Baudilio Sultana MD [address] [facility] [place] [address] PCP - General Family Practice 04/01/18 [facility] 10/12/17 Fitting Room Attendant Relationship Specialty Start Date End Date Baudilio Sultana MD [address] [facility] [place] [address] PCP - General Family Practice 04/01/18 [facility] 10/12/17 Fitting Room Attendant Relationship Specialty Start Date End Date Baudilio Sultana MD [address] [facility] [place] [address] PCP - General Family Practice 04/01/18 [facility] 10/12/17 Fitting Room Attendant Relationship Specialty Start Date End Date Baudilio Sultana MD [address] [facility] [place] [address] PCP - General Family Practice 04/01/18 [facility] 10/12/17 Fitting Room Attendant Relationship Specialty Start Date End Date Baudilio Sultana MD [address] [facility] [place] [address] PCP - General Family Practice 04/01/18 [facility] 10/12/17 Fitting Room Attendant Relationship Specialty Start Date End Date Baudilio Sultana MD [address] [facility] [place] [address] PCP - General Family Practice 04/01/18 [facility] 10/12/17 Fitting Room Attendant Relationship Specialty Start Date End Date Baudilio Sultana MD [address] [facility] [place] [address] PCP - General Family Practice 04/01/18 [facility] 10/12/17 Fitting Room Attendant Relationship Specialty Start Date End Date Baudilio Sultana MD [address] [facility] [place] [address] PCP - General Family Practice 04/01/18 [facility] 10/12/17 Fitting Room Attendant Relationship Specialty Start Date End Date Baudilio Sultana MD [address] [facility] [place] [address] PCP - General Family Practice 04/01/18 [facility] 10/12/17 Fitting Room Attendant Relationship Specialty Start Date End Date Baudilio Sultana MD [address] [facility] [place] [address] PCP - General Family Practice 04/01/18 [facility] 10/12/17 Fitting Room Attendant Relationship Specialty Start Date End Date Baudilio Sultana MD [address] [facility] [place] [address] PCP - General Family Practice 04/01/18 [facility] 10/12/17 Fitting Room Attendant Relationship Specialty Start Date End Date Baudilio Sultana MD [address] [facility] [place] [address] PCP - General Family Practice 04/01/18 [facility] [facility] 10/12/17 Fitting Room Attendant Relationship Specialty Start Date End Date Baudilio Sultana MD [address] [facility] [place] [address] PCP - General Family Practice 04/01/18 Jackson [facility] 10/12/17 Fitting Room Attendant Relationship Specialty Start Date End Date Baudilio Sultana MD [address] [facility] [place] [address] PCP - General Family Medicine 04/01/18 04/24/22 Jackson [facility] 10/12/17 Fitting Room Attendant Relationship Specialty Start Date End Date Baudilio Sultana MD [address] [place], [place] [id number] PCP - General Family Medicine 04/01/18 04/24/22 Jackson [facility] 10/12/17 Fitting Room Attendant Relationship Specialty Start Date End Date Jackson Lee MD Consult[facility] 10/12/17 Fitting Room Attendant Relationship Specialty Start Date End Date Jackson Lee MD [facility] 10/12/17 Fitting Room Attendant Relationship Specialty Start Date End Date Gio Harvey [address], [place] [address] PCP - General Certified Nurse Practitioner 01/13/24 Fitting Room Attendant Relationship Specialty Start Date End Date Gio Harvey [address], [place] [address] PCP - General Certified Nurse Practitioner 01/13/24 Fitting Room Attendant Relationship Specialty Start Date End Date Baudilio Sultana MD [address] [place], [place] [id number] PCP - General Family Medicine 04/01/18 04/24/22 Jackson Lee MD [facility] 10/12/17 Fitting Room Attendant Relationship Specialty Start Date End Date Gio Harvey [address], [place] [address] PCP - General Certified Nurse Practitioner 01/13/24 07/09/24 Fitting Room Attendant Relationship Specialty Start Date End Date CandiceCesari [address], [place] [address] PCP - General Certified Nurse Practitioner 01/13/24 07/09/24 Fitting Room Attendant Relationship Specialty Start Date End Date Raf Casey MD [address] [phone] PCP - General Internal Medicine 08/27/23 Jackson Lee MD Consult[facility] 10/12/17 Fitting Room Attendant Relationship Specialty Start Date End Date Raf Casey MD [address] [phone] PCP - General Internal Medicine 08/27/23 Jackson Lee MD Consulting [facility] 10/12/17 Fitting Room Attendant Relationship Specialty Start Date End Date Raf Casey MD [address] [phone] PCP - General Internal Medicine 08/27/23 Jackson Lee MD Consulting Rhe[facility] 10/12/17 Fitting Room Attendant Relationship Specialty Start Date End Date Raf Casey MD [address] [phone] PCP - General Internal Medicine 08/27/23 Jackson Lee MD Consulting Rhe[facility] 10/12/17 Fitting Room Attendant Relationship Specialty Start Date End Date Raf Casey MD [address] [place] [phone] PCP - General Internal Medicine 08/27/23 Jackson Lee MD Consulting Rhe[facility] 10/12/17 Fitting Room Attendant Relationship Specialty Start Date End Date Raf Casey MD [address] [place] [phone] PCP - General Internal Medicine 08/27/23 Jackson Lee MD Consulting [facility] 10/12/17 Fitting Room Attendant Relationship Specialty Start Date End Date Raf Casey MD [address] [place] [phone] PCP - General Internal Medicine 08/27/23 Jackson Lee MD Consult[facility] 10/12/17 Team Status: Active Member Role/Relationship Status Dates Dr. Baudilio Sultana MD Primary care physician Active Team Status: Inactive Member Role/Relationship Status Dates Dr. Baudilio Sultana MD Primary care physician Active Start: December 05, 2024 End: December 05, 2024 Min ALBRECHT MD Attending physician Active Start: December 05, 2024 End: December 05, 2024 Team Status: Active Member Role/Relationship Status Dates Dr. Baudilio Sultana MD Primary care physician Active Start: December 19, 2024 Min ALBRECHT MD Attending physician Active Start: December 19, 2024 Team Status: Active Member Role/Relationship Status Dates Dr. Baudilio Sultana MD Primary care physician Active Start: January 02, 2025 Min ALBRECHT MD Attending physician Active Start: January 02, 2025 Min ALBRECHT MD Referring Provider Active Start: January 02, 2025 Team Status: Active Member Role/Relationship Status Dates Dr. Baudilio Sultana MD Primary care physician Active Start: January 03, 2025 Min ALBRECHT MD Attending physician Active Start: January 03, 2025 Team Status: Active Member Role/Relationship Status Dates Dr. Baudilio Sultana MD Primary care physician Active Start: January 09, 2025 Min ALBRECHT MD Attending physician Active Start: January 09, 2025 Min ALBRECHT MD Referring Provider Active Start: January 09, 2025 Team Status: Active Member Role/Relationship Status Dates Dr. Baudilio Sultana MD Primary care physician Active Start: January 17, 2025 Min ALBRECHT MD Attending physician Active Start: January 17, 2025 Min ALBRECHT MD Referring Provider Active Start: January 17, 2025 Team Status: Active Member Role/Relationship Status Dates Dr. Baudilio Sultana MD Primary care physician Active Start: January 24, 2025 Min ALBRECHT MD Attending physician Active Start: January 24, 2025 Team Status: Active Member Role/Relationship Status Dates Dr. Baudilio Sultana MD Primary care physician Active Start: January 31, 2025 Min ALBRECHT MD Attending physician Active Start: January 31, 2025 Team Status: Active Member Role/Relationship Status Dates Dr. Baudilio Sultana MD Primary care physician Active Start: February 01, 2025 Min ALBRECHT MD Attending physician Active Start: February 01, 2025 Team Status: Active Member Role/Relationship Status Dates Dr. Baudilio Sultana MD Primary care physician Active Start: February 07, 2025 Min ALBRECHT MD Attending physician Active Start: February 07, 2025 Team Status: Active Member Role/Relationship Status Dates Dr. Baudilio Sultana MD Primary care physician Active Start: February 21, 2025 Min ALBRECHT MD Attending physician Active Start: February 21, 2025 Min ALBRECHT MD Referring Provider Active Start: February 21, 2025 Team Status: Active Member Role/Relationship Status Dates Dr. Baudilio Sultana MD Primary care physician Active Start: March 02, 2025 Min ALBRECHT MD Attending physician Active Start: March 02, 2025 Team Status: Active Member Role/Relationship Status Dates Dr. Baudilio Sultana MD Primary care physician Active Start: March 08, 2025 Min ALBRECHT MD Attending physician Active Start: March 08, 2025 Team Status: Active Member Role/Relationship Status Dates Dr. Baudilio Sultana MD Primary care physician Active Start: March 21, 2025 Min ALBRECHT MD Attending physician Active Start: March 21, 2025 Team Status: Inactive Member Role/Relationship Status Dates Dr. Baudilio Sultana MD Primary care physician Active Start: December 19, 2024 End: December 19, 2024 Min ALBRECHT MD Attending physician Active Start: December 19, 2024 End: December 19, 2024 Team Status: Inactive Member Role/Relationship Status Dates Dr. Baudilio Sultana MD Primary care physician Active Start: January 03, 2025 End: January 03, 2025 Min ALBRECHT MD Attending physician Active Start: January 03, 2025 End: January 03, 2025 Reason for Visit (unrecogniz ed section and content) Reason Comments Anticoagulation Reason Onset Date Comments Anticoagulation 09/25/2021 Reason Comments Physical moving into assisted living Specialty Diagnoses / Procedures Referred By Enrique cueva Referred To Contact Family Practice / FAMILY MEDICINE Diagnoses moving into assisted living need ov for this Procedures 4C EST WELL Self Baudilio Sultana MD [address] [place] [address] Referral ID Status Reason Start Date Expiration Date V isits Requested Visits Authorized [id number] Closed Financial Clearance Required - OON Payor [...] Reason Comments Fall Patient lies in assi sted living and fell, +thinners, A&Ox4 Reason Comments Hip Pain Right Fall Reason Comments Skin Ulcer Headache Reason Comments Wound Care Reason Comments Cough 2 days- productive w orse after eating a pizza roll Reason Comments New Knee Pain Reason Comments Established Patient Pain Goals (unrecognized section and content) Goals may be documented in a n alternate sectionGoals may be documented in an alternate sectionGoals may be documented in an alternate sectionGoals may be documented in an alternate section Ordered Prescriptions (unrec ognized section [...] RN)2149 (Given - Provider: Alexandra Yao, NAWAF) fluticasone (FLONASE) 50 MCG/ACT nasal spray 2 [...] Until Discontinued 2103 (Given - Provider: Lucy Nicholsa LPN) 2039 (Not Given - Provider: Lucy [...] (MICOSTATIN) powder. 0748 (Given - Provider: Mable Trjeo RN - Comment: as ordered)2107 (Given - [...] - Reason: Other - Comment: already given) 751 (Given - Provider: Viktoriya Danielson RN)2032 (Not [...] RN)2103 (Given - Provider: Lucy Nicholas LPN) 751 (Given - Provider: Viktoriya Danielson RN)2032 (Not [...] used. 0755 (See Alternative - Provider: Viktoriya Danielson RN) acetaminophen (TYLENOL) tablet 1,000 mg 1,000 mg, [...] 24 hours. 0755 (Given - Provider: Viktoriya Danielson, RN) aluminum & magnesium hydroxide-simethicone (MAALOX) 200-200-20 [...] Scheduled Medication Order 07/18/2023 07/19/2023 07/20/2023 HYDROcodone-acetaminophen (Trilla) 5-325 MG per tablet 1 tablet (COMPLETED) 1 tablet, Oral, Once, On 07/19/23 at 2030, For 1 dose, Maximum dose of acetaminophen is 4000 mg from all sources in 24 hours. 2030 (Given - Provider: Pia Caraballo RN) HYDROcodone-acetaminophen (Trilla) 5-325 MG per tablet 1 tablet (COMPLETED) 1 tablet, Oral, Once, On Thu07/20/23 at 0105, For 1 dose, Maximum dose of acetaminophen is 4000 mg from all sources in 24 hours. 0154 (Given - Provid er: Gifty Cornell RN) HYDROcodone-acetaminophen (Trilla) 5-325 MG per tablet 1 tablet (COMPLETED) [...] that apply): Skin and Soft Tissue Infection 184 (Given - Provider: Osvaldo Murdock RN) Scheduled [...] BE BASED ON THE PRIMARY CLINICAL RECORDS. [employer] [facility]. provides no warranty or guarantee of the accuracy or completeness of information in this document.
[2025-04-20 09:19] LABS: Prothrombin Time (Protime)PT. 28.6 SECONDS (11.7-14.9)
[2025-04-20 09:25] LABS: Hematocrit 28.7 % (37-47); Hemoglobin 9.4 g/dL (12.0-15.0); Mean Corp Hgb Conc 32.8 g/dL (32-36); Mean Corpuscular Volume 88.9 fL (81-99); Mean Platelet Vol. 11.4 fl (6.2-12.0); Platelet Count 125 K/mm3 (150-450); RBC Distribution Width CV 13.0 % (11.6-14.6); RBC Distribution Width SD 42.2 fl (35.1-43.9); Red Blood Count 3.23 M/mm3 (4.2-5.4); White Blood Count 3.7 K/mm3 (4.4-11.0)
[2025-04-20 09:49] LABS: Anion Gap 6 (5-15); BUN 24 mg/dL (4-19); BUN/Creat Ratio 17.9 RATIO (10-20); Calcium,Total 8.4 mg/dL (7.6-11.0); Carbon Dioxide 25.5 mmol/L (21.0-32.0); Chloride 110 mmol/L (98-108); Glucose 87 mg/dL (70-99); Potassium 5.7 mmol/L (3.3-5.1)
== END ==
LOC: OLS.WCC 05:00
PROVIDERS: PCP Family Medicine; Visit Provider Family Medicine
DX: D68.62 Lupus anticoagulant syndrome (principal); Z79.899 Other long term (current) drug therapy; Z79.01 Long term (current) use of anticoagulants
CPT/HCPCS: 36415; 80048; 85027; 85610

== ENCOUNTER → 2025-05-03 07:20 | Outpatient (REF) | payer MEDICARE, MEDICAID, SELFPAY ==
[2025-05-03 08:23] LABS: Prothrombin Time (Protime)PT. 34.4 SECONDS (11.7-14.9)
== END ==
LOC: OLS.WCC 07:20
PROVIDERS: PCP Family Medicine; Visit Provider Family Medicine
DX: Z79.01 Long term (current) use of anticoagulants (principal)
CPT/HCPCS: 36415; 85610

== ENCOUNTER → 2025-05-17 07:15 | Outpatient (REF) | payer MEDICARE, MEDICAID, SELFPAY ==
[2025-05-17 08:45] LABS: Prothrombin Time (Protime)PT. 33.4 SECONDS (11.7-14.9)
== END ==
LOC: OLS.WCC 07:15
PROVIDERS: PCP Family Medicine; Visit Provider Family Medicine
DX: Z79.899 Other long term (current) drug therapy (principal)
CPT/HCPCS: 36415; 85610

== ENCOUNTER → 2025-05-31 05:00 | Outpatient (REF) | payer MEDICARE, MEDICAID, SELFPAY ==
--- OUTSIDE RECORDS SUMMARY | 2025-05-31 04:08 | XMS RPT_ITS | CCD ---
Author Organization [facility] ion [facility] Care Team Providers Care Mortgage Loan Originator Name Role Phone DAVID ERWIN E Unavailable [...] PCP Primary Care Unavailable Jackson Lee Unavailable UnavailBaudliio Arthur MD Primary Care Provider Jackson Lee Unavailable Unavailmaryellen ble Unavailable Primary Care Provider UnavailRAF Rosenthal Referring Unavailable LINDEN FUENTES Referring Unavailable OSMAN MCCORMACK Attending Unavailable RAF HUTSON Referring Unavailable Jackosn Lee MD Unavailable Unavailable Primary Care Provider [...] Abiodun Primary Care Unavailable SAGE LOERA Attending UnavailMABLE Espinoza Admitting Unavailable TESTSTEVEN MOSLEY Referring Unavailable LI, RAF Abiodun Primary Care Unavailable Rd MENDOZA, Dr. Astudillo Primary Care Physician [phone] Lopez MENDOZA, Min Phillips Attending Physician UnavailMin Newman MD Referring Provider Unavailable LULA, GENE A Attending Unavailable LI, RAF L Primary Care Unavailable LULA, GENE A Attending Unavailable LI, RAF L Primary Care Unavailable KYMBERLY, RAF Abiodun Primary Care Unavailable SAGE LOERA Referring UnavailMENDEL Peterson Attending Unavailable KYMBERLY, RAF Abiodun Primary Care Unavailable STEVEN PELAEZ Attending Unavailable LULA, GENE A Attending Unavailable KYMBERLY, RAF L Primary Care Unavailable KYMBERLY, RAF L Primary Care Unavailable STEVEN PELAEZ Referring Unavailable LULA, GENE A Attending Unavailable KYMBERLY, RAF L Primary Care Unavailable LULA, GENE A Attending Unavailable LI, RAF L Primary Care Unavailable LI, RAF L Primary Care Unavailable LULA, GENE A Attending Unavailable LULA, GENE A Referring Unavailable LULA, GENE A Attending Unavailable LI, RAF L Primary Care Unavailable LULA, GENE A Attending Unavailable KYMBERLY, RAF L Primary Care Unavailable SOFY SAGASTUME Attending Unavailable LI, RAF L Primary Care Unavailable LULA, GENE A Attending Unavailable LI, RAF L Primary Care Unavailable LULA, GENE A Attending Unavailable LI, RAF L Primary Care Unavailable LULA, GENE A Attending Unavailable LI, RAF L Primary Care Unavailable [place] Primary Care Unavailable Marroquin TRENA Min K Attending Unavailable Marroquin TRENA, Min K Attending Unavailable [facility] Primary Care Unavailable Marroquin TRENA, Min K Referring Unavailable [place] Primary Care Unavailable Marroquin TRENA, Min K Referring Unavailable Marroquin TRENA, Min K Attending Unavailable Rd, [facility] Primary Care Unavailable Marroquin TRENA, Min K Attending Unavailable [place] Primary Care Unavailable Marroquin TRENA, Min K Attending Unavailable [place], [facility] Primary Care Unavailable Marroquin OLS, Min K Attending Unavailable Rd, [facility] Primary Care Unavailable Marroquin OLS, Min K Attending Unavailable Rd, [place] Primary Care Unavailable Marroquin OLS, Min K Attending Unavailable Rd, [place] Primary Care Unavailable Marroquin OLS, Min K Attending Unavailable Rd, [place] Primary Care Unavailable Marroquin OLS, Min K Attending Unavailable Rd, [place]aud[place] Primary Care Unavailable Marroquin OLS, Min K Attending Unavailable Marroquin OLS, Min K Attending Unavailable [place], [place] Primary Care Unavailable Marroquin OLS, Min K Referring Unavailable [place], Baudilio Primary Care Unavailable Marroquin OLS, Min K Attending Unavailable Marroquin OLS, Min K Attending Unavailable [place], Baud[place] Primary Care Unavailable Marroquin OLS, Min K Attending Unavailable Rd, Baudilio Primary Care Unavailable Marroquin OLS, Min K Referring Unavailable Marroquin OLS, Min K Attending Unavailable Rd, Baudilio Primary Care Unavailable Rd, Baudilio Primary Care Unavailable Marroquin OLS, Min K Attending Unavailable Allergies Allergy Classification Reported Allergen(s) Allergy Type Date of Onset Reaction(s) Facility (20 sources) cephalexin; Translations: [CEPHALEXIN] Drug Allergy 5 Itching [facility] Repository (20 sources) ciprofloxacin; Translations: [CIPROFLOXACIN] Drug Allergy 1 Rash [facility] Repository (20 sources) erythromycin; Translations: [ERYTHROMYCIN] Drug Allergy 5 Itching [facility] Repository (20 sources) naproxen; Translations: [NAPROXEN] Drug Allergy 5 Intolerance [facility] Repository (20 sources) PARoxetine; Translations: [PAROXETINE HCL] Drug Allergy 5 Mental Status Change [facility] Repository (20 sources) Penicillins; Translations: [PENICILLINS] Propensity to adverse reactions to drug (disorder) 1 Hives, Unknown, Other [facility] Repository (20 sources) PROMETHAZINE-PHE NYLEPHRINE; Translations: [PROMETHAZINE-PH ENYLEPHRINE] Propensity to adverse reactions to drug (disorder) 5 Mental Status Change, Other [facility] Repository (4 sources) OTHER; Translations: [OTHER] Propensity to adverse reactions (disorder) 2 AOF [facility] Repository (20 sources) HMG-CoA reductase inhibitor; Translations: [LLJAZBN-PIW-KER REDUCTASE INHIBITORS] Drug Intolerance 9 Myalgia [facility] Work Phone: (20 sources) paper tape [Other] Propensity to adverse reactions 2 Intolerance [facility] Work Phone: (5 sources) Cephalexin; Translations: [cephalexin monohydrate] Drug Allergy 1 Unknown [facility] (4 sources) Erythromycin Drug Allergy 1 Unknown [facility] (5 sources) Promethazine; Translations: [promethazine HCl] Drug Allergy 1 Unknown [facility] (5 sources) Adznfbj-Zqg-Yck Reductase Inhibitor; Translations: [Jgsbuyy-Wxh-Yyf Reductase Inhibitor] Propensity to adverse reactions 1 Myalgias [facility] (1 source) PAPER TAPE Propensity to adverse reactions 1 Rash [facility] Work Phone: (20 sources) HMG-CoA reductase inhibitor Drug Intolerance 9 Myalgia [facility] Work Phone: (6 sources) Adhesive Tape Propensity to adverse reactions to drug 2 Unknown [facility] Comment on above: PAPER TAPE (5 sources) Cheese; Translations: [CHEESE] Propensity to adverse reactions to drug 2 Diarrhea, Nausea And Vomiting, GI Upset [facility] (1 source) Hmg-Coa Reductase Inhibitors (Statins) Propensity to adverse reactions to drug 2 [facility] Work Phone: (20 sources) Promethazine; Translations: [PROMETHAZINE] Drug Allergy 9 Unknown, Intolerance [facility] Work Phone: (20 sources) PARoxetine; Translations: [PAROXETINE] Drug Allergy 9 Unknown, Intolerance [facility] (20 sources) 5-Alpha Reductase Inhibitors Propensity to adverse reactions 3 [facility] (13 sources) Adhesive Tape-Silicones; Translations: [ADHESIVE TAPE-SILICONES] Drug Allergy 3 Unknown, Rash [facility] (11 sources) Adhesive Tape Propensity to adverse reactions 4 [facility] (7 sources) Wound Dressing Adhesive Drug Allergy 3 Unknown [facility] (11 sources) Adhesive Tape; Translations: [ADHESIVE TAPE (ROSINS)] Propensity to adverse reactions to substance 1 Rash [facility] Work Phone: (2 sources) Adhesive agent; Translations: [ADHESIVE] Propensity to adverse reactions to drug (disorder) 2 [facility] Other [place] Repository (1 source) Adhesive Tape Drug allergy (disorder) 2 [facility] Repository (1 source) Erythromycin Drug Allergy 2 [facility] Repository Medications Current Medications Medication Drug Class(es) Dates Sig (Normalized) Sig (Original) acetaminophen 500 mg oral tablet (17 sources) Start: 09-28-2024 take 2 tablets by mouth every six hours as needed acetaminophen (TYLENOL) 500 mg tablet Take 2 tablets by mouth every 6 hours as needed for pain or fever (specify temp.). 09/28/2024 Active Start: 12-15-2023 End: 12-15-2023 650 mg, Oral, Once, On e at 1830, For 1 dose, Maximum dose [...] Phosphate Binder, Calcium Start: 06-12-2019 Calcium Carb-D3-Mag Pjj68-Yhth Active 1 EACH PO DAILY June 12, 2019 5:53pm Calcium Carb-D3-Mag [id number]-[id number] 1 EACH tablet (3 sources) Start: 06-12-2019 [...] 1 tablet by rajan th once daily. clindamycin 300 mg oral capsule [...] day. 09/28/2024 Active take 1 capsule by [facility] every eight hours as needed hydrOXYzine pamoate [...] 3 times daily. Active nystatin (Mycost atin) [id number] UNIT/GM powder Apply topically 2 times daily. [...] January 07, 2014 9:25am polyethylene glycol 3350 51156 mg powder for oral solution (2 sources) [...] mouth once daily take 1 capsule by [facility] every twenty-four hours ramipril (Altace) 5 MG capsule Take 1 capsule by mouth Every 24 hours. Active Comment on above: Take 1 capsule by mo ut once daily. 5 ml sodium chloride 9 [...] Agonist Start: 07-19-2023 End: 07-20-2023 HYDROcodone-acetam inophen ([place]) 5-325 MG per tablet 1 tablet Start: [...] oral tablet (2 sources) Vitamin D Start: take 1 tablet by mouth once daily [...] Comment on above: Take 1 capsule by [facility] once daily. 1 ml dexamethasone phosphate 10 [...] Discontinued Start: 05-04-2019 take 2 spray(s) by [facility] once daily fluticasone (FLONASE) 50 mcg/actuation nasal [...] Start: 08-20-2020 take 1 capsule by mo [facility] once daily take 1 tablet by mouth [...] 1 tablet by rajan th once daily. nitrofurantoin, macrocrystals 25 mg / [...] [Foot drop, left foot] Onset: 2 Episodic Administrative/social admission (1 source) Other reduced mobility; Translations: [Impaired functional mobility, balance, gait, and endurance] Onset: 5 Episodic Asthma (20 sources) Unspecified asthma, uncomplicated; Translations: [Asthma, unspecified type, unspecified] Onset: 3 04-18-2005 Chronic Cardiac dysrhythmias (1 source) Unspecified atrial fibrillation; Translations: [Unspecified atrial fibrillation] Onset: 5 Chronic Chronic kidney disease (12 sources) Chronic [...] disease (20 sources) Atherosclerotic heart disease of [place] coronary artery without angina pectoris; Translations: [Coronary [...] 4 Resolved: 4 05-04-2023 Chronic Other aftercare (4 sources) automobile 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 (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) use of anticoagulants; Translations: [[facility] (current) use of anticoagulants] Onset: 2 Episodic Other aftercare (2 sources) automobile 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 (current) use of oral hypoglycemic drugs; Translations: [automobile 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 (current) use of oral hypoglycemic drugs] Onset: 2 Episodic Other aftercare (2 sources) automobile 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 (current) use of aspirin; Translations: [[facility] (current) use of aspirin] Onset: 2 Episodic Other aftercare (2 sources) [facility] (current) use of opiate analgesic; Translations: [[facility] (current) use of opiate analgesic] Onset: 2 Episodic Other aftercare (1 source) Other penitentiary (current) drug therapy; Translations: [Other setter out (current) drug therapy] Onset: 5 Episodic Other bone disease and musculoskeletal deformities (2 sources) Disorder of skeletal system; Translations: [Disorder of bone, unspecified] Episodic Other circulatory disease (20 sources) Disorder of carotid artery; Translations: [Disorder of arteries and arterioles, unspecified] Onset: 3 08-20-2012 Chronic Other connective tissue disease (5 sources) Repeated falls; Translations: [Repeated falls] Onset: 2 Episodic Other diseases of veins and lymphatics (20 [...] Translations: [Diarrhea, unspecified] Onset: 2 Episodic Other hereditary and degenerative nervous system conditions (1 source) Other specified forms of tremor; Translations: [Action tremor] Onset: 5 Chronic Other injuries and conditions due to external [...] of left ankle] Onset: 5 Chronic Other nervous system disorders (1 source) Unspecified abnormalities of gait and mobility; Translations: [Abnormality of gait] Onset: 5 Episodic Other non-traumatic joint disorders (11 sources) Shoulder [...] of daily living (ADL)] Onset: 5 Episodic Residual codes; unclassified (1 source) Other amnesia; Translations: [Memory loss] Onset: 5 Episodic Superficial injury; contusion (20 [...] Comment on above: PCI/stent to LAD 200 ; PCI stent to LAD 2004; PCI/MOISE to [...] 09-26-2021 11-25-2016 Episodic Other connective tissue disease (9 sources) [...] Test Name Value Interpretation Reference Range Facility Prothrombin Time w/INRon INR Coag (PPP) [Relative time] 3.3 {INR} Normal [facility] Comment on above: Order Comment: 103.1 Performed By: #### L [id number], [id number] #### [facility] [address] [place], [place], [id number] PT Coag (PPP) [Time] 34.4 s High 11.7-14.9 [facility] Comment on above: Order Comment: 103.1 Performed By: #### L [id number], [id number] #### [facility] [address] [place], [address] CNOVon 05-01-2025 CNOV Office Visit (PSYLWM ) RANDOLPH HUNTER ([id number]) 1950 F Date Time Provider Department 05/01/25 11:00 AM GILMER COTTON PSYLWM During your visit today, we recorded the following information about you: Gilmer Cotton, PhD 05/01/2025 12:14 PM Signed [facility] Progress Note Randolph Hunter 05/01/2025 [id number] PROVIDER: Gilmer Cotton, PhD CPT Code: Time: 50 minutes Setting: in person Parties Present: Patient Treatment Modality/Interventions: Cognitive Behavioral Reassurance/Supportive Insight oriented Problem solving Processing of emotions Psychoeducation MENTAL STATUS: Mood: variable, dysthymic, anxious Affect: mood-congruent Thoughts/Associations:goal directed Suicidal/Homicidal Ideation: None expressed or evidenced Other Prominent Symptoms: Therapy Focus/Content of Session: Self-care, Stress management, Mood/affect regulation, Self-esteem, and Coping with chronic illness MOOD: seems nicely alert but reports feeling lonely PLAN: work on having a DATE NIGHT w w some regularity needs things to look forward to she has mixed feelings about the help she needs and gets some chaos or things that seem logical but they do otherwise Son Harper has a nice job and spends lots of time w his father Moncho still works at the restaurant and doing well Simran has been set up for more PT and other therapies PLAN: staying physically active has always done her good GOAL: PT etc and date nights will likely help her quality of life MEDICATIONS: Per medical record: Current Outpatient Medications [...] all electric with adjustable head and feet. 41 (more content not included)... Normal [facility] CNOVon 04-26-2025 CNOV Office Visit (REHMMN ) RANDOLPH HUNTER ([id number]) 1950 F Date Time Provider Department 04/26/25 9:00 AM SOFY SAGASTUME During your visit today, we recorded the following information about you: Temperature Pulse Blood pressure 97.8 degrees 81/minute 92/40 Sofy Sagastume PA-C 04/26/2025 10:59 AM Signed REFERRAL SOURCE: No referring provider defined for this encounter. FOLLOWED BY: Raf Casey MD, MD REASON FOR CONSULTATION: rehabilitation consult. PRINCIPAL NEUROLOGIC DIAGNOSIS: Cerebral Palsy HISTORY OF ILLNESS: Date of Onset: BRIEF NARRATIVE DESCRIBING HISTORY: Simran Hunter is a 74-year-old female with a history of cerebral palsy, diabetes, and neuropathy, presenting with tremors, cognitive changes, and neuropathic pain. Tremors: - Tremors began in the left arm approximately one year ago - Describes tremors as uncontrollable, occurring both at rest and during movement. - Can temporarily stop tremors by physically holding the affected limb. - Fine motor skills in the left hand are significantly impaired; unable to perform tasks like peeling stickers or crocheting. this exacerbates the tremor. - No improvement in tremors since starting Lyrica. Cognitive Changes: - Notable decline in memory and speech over the past year. - Difficulty recalling names and words; speech is often delayed. - Concerns about not recognizing her in the future. - Speech therapist at the facility has noted changes in voice and difficulty drinking. - Denies any change in cognitive function since starting Lyrica. - Regularly sees Dr. Cotton, a psychological therapist, for support. Neuropathy: - Severe neuropathy in the right foot and leg following knee surgery 13-14 years ago. - Describes neuropathy as "raging" and causing significant pain. - Recently began taking Lyrica, which has provided more relief than previous medication, gabapentin. - Denies neuropathy being related to diabetes; maintains an A1c of 5.3. Cerebral Palsy: - primarily affecting the left side of the body. - no major spasms - Has been in a wheelchair since a fall on August 19, which resulted in an inability to stand. - Previously able to stand and pivot transfer; now requires a slide board for transfers. - Has fallen multiple times during transfers, most recently a couple of weeks ago. They're urging her to use [id number]-[id number], but she's not comfortable. - Engages in exercises independently, including lifting a 5-pound bar daily. -not currently in PT/OT/speech Patient Entered Data PROMIS No data to display Spasticity NRS No data to display Spasm Scale No data to display Global Impression of Change No data to display Safety concerns regarding living situations and safety at home: No resides at [facility] Risk of falls: Yes during transfers Review of Systems PAST MEDICAL HISTORY Diagnosis Date CAD (coronary [...] 2003 Transcath stent init vessel percut SOCIAL HISTORY[1] FAMILY HISTORY Problem Relation Age of Onset Asthma Mother Diabetes Mother Heart Mother Cancer Mother COLON COPD Mother Hypertension Mother Osteoporosis Father Heart Father Cancer Father lung COPD Father other (AAA) Father other (brain tumor) Brother brain other (AAA) Paternal Grandfather PHYSICAL EXAMINATION: Cognitive/Behavioral: some difficulty with word finding. Mild dysarthria. Formal neuropsychological testing was not performed today. The patient did not exhibit s (more content not included)... Normal [facility] Basic Metabolic Profile (BMP )on 04-20-2025 BUN/CRE 17.9 RATIO Normal 04-10 [facility] Comment on above: Order Comment: 103.1 Performed By: #### L [id number], [id number] #### [facility] [address] [place], [place], [id number] Calcium [Mass/Vol] 8.4 mg/dL Normal 7.6-11.[address] [facility] Comment on above: Order Comment: 103.1 Performed By: #### L [id number], [id number] #### [facility] [address] [place], [address] Chloride [Moles/Vol] 110 mmol/L High 98-108 [facility] Comment on above: Order Comment: 103.1 Performed By: #### L [id number], [id number] #### [facility] [address] [place], [address] CO2 [Moles/Vol] 25.5 mmol/L Normal 21.0-32.0 [facility] Comment on above: Order Comment: 103.1 Performed By: #### L [id number], [id number] #### [facility] [address] [place], [address] Creatinine [Mass/Vol] 1.35 mg/dL High 0.70-1.20 [facility] Comment on above: Order Comment: 103.1 Performed By: #### L [id number], [id number] #### [facility] [address] [place], [address] GAP 6 Normal 5-15 [facility] Comment on above: Order Comment: 103.1 Performed By: #### L [id number], [id number] #### [facility] [address] [place], [address] GFR/1.73 sq M.predicted among non-blacks MDRD (S/P/Bld) [Vol rate/Area] 41 mL/min/{1.73_m2} Low >60 [facility] Comment on above: Order Comment: 103.1 Result Comment: mL/m in/1.73m2 CKD-EPI Creatinine Equation (2020) Performed By: #### L [id number], [id number] #### [facility] [address] [place], [address] Glucose [Mass/Vol] 87 mg/dL Normal 70-[address] [facility] Comment on above: Order Comment: 103.1 Performed By: #### L [id number], [id number] #### [facility] [address] [place], [address] Potassium [Moles/Vol] 5.7 mmol/L High 3.3-5.1 [facility] Comment on above: Order Comment: 103.1 Performed By: #### L [id number], [id number] #### [facility] [address] [place], [address] Sodium [Moles/Vol] 141 mmol/L Normal 133-[address] [facility] Comment on above: Order Comment: 103.1 Performed By: #### L [id number], [id number] #### [facility] [address] [place], [address] Urea nitrogen [Mass/Vol] 24 mg/dL High 4-19 [facility] Comment on above: Order Comment: 103.1 Performed By: #### L [id number], [id number] #### [facility] [address] [place], [address] CBC-Complete Blood Cnt No ffon 04-20-2025 Erythrocyte distribution width (RBC) [Ratio] 13.0 % Normal 11.6-14.6 [facility] Comment on above: Order Comment: 103.1 Performed By: #### L [id number], [id number] #### [facility] [address] [place], [address] Hematocrit (Bld) [Volume fraction] 28.7 % Low 37-47 [facility] Comment on above: Order Comment: 103.1 Performed By: #### L [id number], [id number] #### [facility] [address] [place], [address] Hemoglobin (Bld) [Mass/Vol] 9.4 g/dL Low 12.0-15.0 [facility] Comment on above: Order Comment: 103.1 Performed By: #### L [id number], L501.20 #### [facility] [address] [place], [address] MCH (RBC) [Entitic mass] 29.1 pg Normal 27.0-32.0 [facility] Comment on above: Order Comment: 103.1 Performed By: #### L [id number], [id number] #### [facility] [address] [place], [address] MCHC (RBC) [Mass/Vol] 32.8 g/dL Normal 32-36 [facility] Comment on above: Order Comment: 103.1 Performed By: #### L [id number], [id number] #### [facility] [address] [place], [address] MCV (RBC) [Entitic vol] 88.9 fL Normal 81-99 [facility] Comment on above: Order Comment: 103.1 Performed By: #### L [id number], [id number] #### [facility] [address] [place], [address] Platelet mean volume (Bld) [Entitic vol] 11.4 fL Normal 6.2-12.0 [facility] Comment on above: Order Comment: 103.1 Performed By: #### L [id number], [id number] #### [facility] [address] [place], [address] Platelets (Bld) [#/Vol] 125 10*3/uL Low 150-450 [facility] Comment on above: Order Comment: 103.1 Performed By: #### L [id number], [id number] #### [facility] [address] [place], [address] RBC (Bld) [#/Vol] 3.23 10*6/uL Low 4.2-5.4 [facility] Comment on above: Order Comment: 103.1 Performed By: #### L [id number], [id number] #### [facility] [address] [place], [address] RDW SD 42.2 fl Normal 35.1-43.9 [facility] Comment on above: Order Comment: 103.1 Performed By: #### L [id number], [id number] #### [facility] [address] [place], [address] WBC (Bld) [#/Vol] 3.7 10*3/uL Low 4.4-11.[address] [facility] Comment on above: Order Comment: 103.1 Performed By: #### L [id number], [id number] #### [facility] [address] [place], [address] Prothrombin Time w/INRon INR Coag (PPP) [Relative time] 2.6 {INR} Normal [facility] Comment on above: Order Comment: 103.1 Performed By: #### L [id number], [id number] #### [facility] [address] [place], [address] PT Coag (PPP) [Time] 28.6 s High 11.7-14.9 [facility] Comment on above: Order Comment: 103.1 Performed By: #### L [id number], [id number] #### [facility] [address] [place], [address] Protime w/INR Fingerstickon 04-05-2025 INR Coag (PPP) [Relative time] 2.0 {INR} Normal [facility] Comment on above: Result Comment: Crit ical Value > 4.0 Performed By: #### L 9200.0000 #### [facility] [address] [place], [address] Protime Coagsen 22.7 SEC High 11.7-14.9 [facility] Comment on above: Performed By: #### L 9200.0000 #### [facility] [address] [facility] [place], [place], [id number] International normalized rat io (INR) calculationOrdered By: Min Marroquin on 03-21-2025 INR Coag (Bld) [Relative time] 2.1 {INR} [facility] Prothrombin Time w/INRon INR Coag (PPP) [Relative time] 2.1 {INR} Normal [facility] Comment on above: Performed By: #### L [id number], [id number] #### [facility] [address] [facility] [place], [place], [id number] PT Coag (PPP) [Time] 23.6 s High 11.7-14.9 [facility] Comment on above: Performed By: #### L 501.9985, L501.9520 #### [facility] [address] [facility]. [place], [place], [id number] Prothrombin timeOrdered By: Min Marroquin on 03-21-2025 PT Coag (PPP) [Time] 23.6 s High 11.7-14.9 [facility] CNOVon 03-20-2025 CNOV Office Visit (PSYLWM ) RANDOLPH HUNTER ([id number]) 1950 F Date Time Provider Department 03/20/25 3:00 PM GILMER COTTON PSYLWM During your visit today, we recorded the following information about you: Gilmer Cotton, PhD 03/20/2025 4:09 PM Signed [facility] Department Progress Note Randolph Hunter 03/20/2025 [id number] PROVIDER: Gene A Lula, PhD CPT Code: Time: 50 minutes Setting: [...] grand children reading a lot .. mostly shivani flowers Anxiety : elevated perhaps since she is [...] directed once a month. blood sugar diagnostic ([email or web address] VERIO TEST STRIPS) test strip Test blood [...] current facility-administered (more content not included)... Normal [facility] International normalized rat io (INR) calculationOrdered By: Min Marroquin on 03-08-2025 INR Coag (Bld) [Relative time] 2.7 {INR} [facility] Prothrombin Time w/INRon INR Coag (PPP) [Relative time] 2.7 {INR} Normal [facility] Comment on above: Order Comment: 103.1 Performed By: #### L 501.9985, L501.9520 #### [facility] [address] [place], [place], [id number] PT Coag (PPP) [Time] 29.1 s High 11.7-14.9 [facility] Comment on above: Order Comment: 103.1 Performed By: #### L 501.9985, L501.9520 #### [facility] [address] [place], [place], [id number] Prothrombin timeOrdered By: Min Marroquin on 03-08-2025 PT Coag (PPP) [Time] 29.1 s High 11.7-14.9 [facility] Hemoglobin A1con 03-02-2025 HbA1c (Bld) [Mass fraction] 5.4 % Normal <=5.6 [facility] Comment on above: Order Comment: 103.1 Result Comment: Norm al < 5.7 % Prediabetic 5.7 - 6.4 % Diabetic >or= 6.5 % Please note range changes. Performed By: #### L 501.9985, L501.9520 #### [facility] [address] [place], [place], [id number] Hemoglobin A1c percentageOrd ered By: Min Marroquin on 03-02-2025 HbA1c (Bld) [Mass fraction] 5.4 % <5.7 [facility] Comment on above: Normal < 5.7 % Predi abetic 5.7 - 6.4 % Diabetic >or= 6.5 % Please note range changes. TSH DL <= 0.005 mIU/L QnOrde red By: Min Marroquin on 03-02-2025 TSH Qn 2.590 uIU/mL 0.300-4.20 0 [facility] Thyroid Stim Hormone (TSH)on 03-02-2025 TSH 2.590 uIU/mL Normal 0.300-4.20 0 [facility] Comment on above: Order Comment: 103.1 Performed By: #### L 501.9985, L501.9520 #### [facility] [address] [place], [place], [id number] International normalized rat io (INR) measurement by fingerstickOrdered By: Min Marroquin on 02-21-2025 INR Coag (BldC) [Relative time] 2.4 [facility] Comment on above: Critical Value > 4.0 Protime w/INR Fingerstickon 02-21-2025 INR Coag (PPP) [Relative time] 2.4 {INR} Normal [facility] Comment on above: Result Comment: Crit ical Value > 4.0 Performed By: #### L 501.9985, L501.9520 #### [facility] [address] [place], [place], [id number] Protime Coagsen 25.4 SEC High 11.7-14.9 [facility] Comment on above: Performed By: #### L 501.9985, L501.9520 #### [facility] [address] [place], [place], [id number] Whole blood prothrombin time Ordered By: Min Marroquin on 02-21-2025 PT Coag (Bld) [Time] 25.4 s High 11.7-14.9 [facility] International normalized rat io (INR) measurement by fingerstickOrdered By: Min Marroquin on 02-07-2025 INR Coag (BldC) [Relative time] 2.5 [facility] Comment on above: Critical Value > 4.0 Protime w/INR Fingerstickon 02-07-2025 INR Coag (PPP) [Relative time] 2.5 {INR} Normal [facility] Comment on above: Result Comment: Crit ical Value > 4.0 Performed By: #### L 9200.0000 #### [facility] [address] [place], [address] Protime Coagsen 27.1 SEC High 11.7-14.9 [facility] Comment on above: Performed By: #### L 9200.0000 #### [facility] [address] [place], [address] Whole blood prothrombin time Ordered By: Min Marroquin on 02-07-2025 PT Coag (Bld) [Time] 27.1 s High 11.7-14.9 [facility] International normalized rat io (INR) measurement by fingerstickOrdered By: Min Marroquin on 02-01-2025 INR Coag (BldC) [Relative time] 3.2 [facility] Comment on above: Critical Value > 4.0 Protime w/INR Fingerstickon 02-01-2025 INR Coag (PPP) [Relative time] 3.2 {INR} Normal [facility] Comment on above: Result Comment: Crit ical Value > 4.0 Performed By: #### L 9200.0000 #### [facility] [address] [place], [address] Protime Coagsen 32.6 SEC High 11.7-14.9 [facility] Comment on above: Performed By: #### L 9200.0000 #### [facility] [address] [place], [address] Whole blood prothrombin time Ordered By: Min Marroquin on 02-01-2025 PT Coag (Bld) [Time] 32.6 s High 11.7-14.9 [facility] International normalized rat io (INR) calculationOrdered By: Min Marroquin on 01-31-2025 INR Coag (Bld) [Relative time] 4.0 {INR} Critically high [facility] Comment on above: CRITICAL VALUE DOMINGUEZ D TO MARIA TERESA SALVADOR ([facility])01/31/25 0949 Steven Fagan.RESULTS READ BACK BY SAME. Prothrombin Time w/INRon INR Coag (PPP) [Relative time] 4.0 {INR} Invalid Interpretation Code [facility] Comment on above: Result Comment: CRIT ICAL VALUE CALLED TO MARIA TERESA SALVADOR ([facility]) 01/31/25 0949 Steven Fagan. RESULTS READ BACK BY SAME. Performed By: #### L 300.3900 #### [facility] [address] [place], [address] PT Coag (PPP) [Time] 40.0 s High 11.7-14.9 [facility] Comment on above: Performed By: #### L 300.3900 #### [facility] [address] [place], [address] Prothrombin timeOrdered By: Min Marroquin on 01-31-2025 PT Coag (PPP) [Time] 40.0 s High 11.7-14.9 [facility] International normalized rat io (INR) measurement by fingerstickOrdered By: Min Marroquin on 01-24-2025 INR Coag (BldC) [Relative time] 3.8 [facility] Comment on above: Critical Value > 4.0 Protime w/INR Fingerstickon 01-24-2025 INR Coag (PPP) [Relative time] 3.8 {INR} Normal [facility] Comment on above: Result Comment: Crit ical Value > 4.0 Performed By: #### L 9200.0000 #### [facility] [address] [place], [address] Protime Coagsen 38.5 SEC High 11.7-14.9 [facility] Comment on above: Performed By: #### L 9200.0000 #### [facility] [address] [place], [address] Whole blood prothrombin time Ordered By: Min Marroquin on 01-24-2025 PT Coag (Bld) [Time] 38.5 s High 11.7-14.9 [facility] International normalized rat io (INR) measurement by fingerstickOrdered By: Min Marroquin on 01-17-2025 INR Coag (BldC) [Relative time] 1.5 [facility] Comment on above: Critical Value > 4.0 Protime w/INR Fingerstickon 01-17-2025 INR Coag (PPP) [Relative time] 1.5 {INR} Normal [facility] Comment on above: Result Comment: Crit ical Value > 4.0 Performed By: #### L 501.9985, L501.9520 #### [facility] [address] [place], [place], [id number] Protime Coagsen 17.2 SEC High 11.7-14.9 [facility] Comment on above: Performed By: #### L 501.9985, L501.9520 #### [facility] [address] [place], [place], [id number] Whole blood prothrombin time Ordered By: Min Marroquin on 01-17-2025 PT Coag (Bld) [Time] 17.2 s High 11.7-14.9 [facility] CNOVon 01-10-2025 CNOV Office Visit (PSYLWM ) RANDOLPH HUNTER ([id number]) 1950 F Date Time Provider Department 01/10/25 11:00 AM GILMER COTTON PSYLWM During your visit today, we recorded the following information about you: Gilmer Cotton, PhD 01/10/2025 12:09 PM Signed [facility] Department Progress Note Randolph Hunter 01/10/2025 [id number] PROVIDER: Gilmer Cotton, PhD CPT Code: Time: [...] directed once a month. blood sugar diagnostic ([email or web address] VERIO TEST STRIPS) test strip Test blood [...] Issues: No change from previous appointment DIAGNOSIS: [place] I (more content not included)... Normal [facility] normalized rat io (INR) measurement by fingerstickOrdered By: Min Marroquin on 01-09-2025 INR Coag (BldC) [Relative time] 2.9 [facility] Comment on above: Critical Value > 4.0 Protime w/INR Fingerstickon 01-09-2025 INR Coag (PPP) [Relative time] 2.9 {INR} Normal [facility] Comment on above: Result Comment: Crit ical Value > 4.0 Performed By: #### L 9200.0000 #### [facility] [address] [place], [place], [id number] Protime Coagsen 30.5 SEC High 11.7-14.9 [facility] Comment on above: Performed By: #### L 9200.0000 #### [facility] [address] [place], [place], [id number] Whole blood prothrombin time Ordered By: Min Marroquin on 01-09-2025 PT Coag (Bld) [Time] 30.5 s High 11.7-14.9 [facility] Urine Cultureon 01-06-2025 URC Klebsiella pneumonia e sp pneum Covel Count 50,000-80,000 Escherichia coli Escherichia coli Klebsiella [...] TMP SMX Islt NORMA <=20 S Normal [facility] Comment on above: Performed By: #### L 400.0001, M100.2199 #### [facility] [address] [place], [place], [address] Bilirubin Test strip Ql (U)O rdered By: Min Marroquin on 01-03-2025 Bilirubin Ql (U) Negative Negative [facility] Ketones Test strip Ql (U)Ord ered By: Min Marroquin on 01-03-2025 Ketones Ql (U) Negative Negative [facility] Microscopic analysis of urin e for red blood cells (RBC)Ordered By: Min Marrqouin on 01-03-2025 Microscopic analysis of urine for red blood cells (RBC) 10-25 SEEN /hpf 0-5 [facility] Mucus LM Ql (Urine sed)Order ed By: Min Marroquin on 01-03-2025 Mucus Ql (Urine sed) 0 SEEN /hpf [facility] Nitrite Test strip Ql (U)Ord ered By: Min Marroquin on 01-03-2025 Nitrite Ql (U) Negative Negative [facility] Protein Test strip Ql (U)Ord ered By: Min Marroquin on 01-03-2025 Protein Ql (U) 100 mg/dl High Negative [facility] Squamous epithelial cells de tection in urine sediment by light microscopyOrdered By: Min Marroquin on 01-03-2025 Epithelial cells.squamous LM Ql (Urine sed) 0 SEEN /hpf 5-10 [facility] Urinalysis, Completeon 01-03 RBC 10-25 SEEN Normal 0-5 [facility] Comment on above: Order Comment: CLAU TER SPECIMEN Performed By: #### L 400.0001, M100.2200 #### [facility] [address] [place], [address] WBC >100 SEEN Normal 0-5 [facility] Comment on above: Order Comment: CLAU TER SPECIMEN Performed By: #### L 400.0001, M100.2200 #### [facility] [address] [place], [address] BACTERIA 0 SEEN Normal None Seen [facility] Comment on above: Order Comment: CLAU TER SPECIMEN Performed By: #### L 400.0001, M100.2200 #### [facility] [address] [place], [address] EPI,SQUAMOUS 0 SEEN Normal 5-10 [facility] Comment on above: Order Comment: CLAU TER SPECIMEN Performed By: #### L 400.0001, M100.2200 #### [facility] [address] [place], [address] Mucus Ql (Urine sed) 0 SEEN Normal [facility] Comment on above: Order Comment: CLAU TER SPECIMEN Performed By: #### L 400.0001, M100.2200 #### [facility] [address] [place], [address] Urine clarityOrdered By: Chavo Marroquin on 01-03-2025 Clarity (U) Turbid Clear [facility] Urine color determinationOrd ered By: Min Marroquin on 01-03-2025 Color (U) Yellow Yellow [facility] Urine cultureOrdered By: Chavo Marroquin on 01-03-2025 Bacteria identified Cx Nom (U) Klebsiella pneumoniae sp pneum Abnormal [facility] Bacteria identified Cx Nom (U) Escherichia coli Abnormal [facility] Urine glucose detectionOrder ed By: Min Marroquin on 01-03-2025 Glucose Ql (U) Normal mg/dl Normal [facility] Urine leukocyte esterase det ection by dipstickOrdered By: Min Marroquin on 01-03-2025 Leukocyte esterase Test strip Ql (U) 500 /ul High Negative [facility] Urine pHOrdered By: Min solis on 01-03-2025 pH (U) 6.0 [pH] 5.0 - 8.0 [facility] Urine sediment bacteria coun t by microscopy (number/high power field)Ordered By: Min Marroquin on 01-03-2025 Bacteria LM.HPF (Urine sed) [#/Area] 0 /[HPF] None Seen [facility] Urine specific gravity measu rementOrdered By: Min Marroquin on 01-03-2025 Specific gravity (U) [Rel density] 1.015 1.002-1.03 0 [facility] Urine urobilinogen measureme ntOrdered By: Min Marroquin on 01-03-2025 Urobilinogen Ql (U) Normal mg/dl Normal [facility] White blood cell countOrdere d By: Min Marroquin on 01-03-2025 White blood cell count >100 SEEN /hpf 0-5 [facility] International normalized rat io (INR) measurement by fingerstickOrdered By: Min Marroquin on 01-02-2025 INR Coag (BldC) [Relative time] 2.4 [facility] Comment on above: Critical Value > 4.0 Protime w/INR Fingerstickon 01-02-2025 INR Coag (PPP) [Relative time] 2.4 {INR} Normal [facility] Comment on above: Result Comment: Crit ical Value > 4.0 Performed By: #### L 501.9985, L501.9520 #### [facility] [address] [place], [place], [id number] Protime Coagsen 25.4 SEC High 11.7-14.9 [facility] Comment on above: Performed By: #### L 501.9985, L501.9520 #### [facility] [address] [place], [place], [id number] Whole blood prothrombin time Ordered By: Min Marroquin on 01-02-2025 PT Coag (Bld) [Time] 25.4 s High 11.7-14.9 [facility] International normalized rat io (INR) measurement by fingerstickOrdered By: Min Marroquin on 12-19-2024 INR Coag (BldC) [Relative time] 2.3 [facility] Comment on above: Critical Value > 4.0 Protime w/INR Fingerstickon 12-19-2024 INR Coag (PPP) [Relative time] 2.3 {INR} Normal [facility] Comment on above: Result Comment: Crit ical Value > 4.0 Performed By: #### L 501.9985, L501.9520 #### [facility] [address] [place], [address] Protime Coagsen 24.7 SEC High 11.7-14.9 [facility] Comment on above: Performed By: #### L 501.9985, L501.9520 #### [facility] [address] [place], [place], [id number] Whole blood prothrombin time Ordered By: Min Marroquin on 12-19-2024 PT Coag (Bld) [Time] 24.7 s High 11.7-14.9 [facility] CNOVon 12-06-2024 CNOV Office Visit (PSYLWM ) RANDOLPH HUNTER ([id number]) 1950 F Date Time Provider Department 12/06/24 11:00 AM GILMER COTTON PSYLWM During your visit today, we recorded the following information about you: Gilmer Cotton, PhD 12/06/2024 12:04 PM Signed [facility] Department Progress Note Randolph Hunter 12/06/2024 [id number] PROVIDER: Gilmer Cotton, PhD CPT Code: Time: [...] Pt moved now a week [facility] [place] so far and she believes [...] Assisted Living room while she is in [facility] MEDICATIONS: Per medical record: Current [...] directed once a month. blood sugar diagnostic ([email or web address] VERIO TEST STRIPS) test strip Test blood [...] Issues: No change from previous appointment DIAGNOSIS: [place] I: Depres (more content not included)... Normal [facility] Anion gap in Serum or Plasma Ordered By: Min Marroquin on 12-05-2024 Anion gap [Moles/Vol] 6 mmol/L 5-15 [facility] BUN/creatinine ratioOrdered By: Min Marroquin on 12-05-2024 Urea nitrogen/Creatinine [Mass ratio] 17.2 mg/mg 04-10 [facility] Basic Metabolic Profile (BMP )on 12-05-2024 BUN/CRE 17.2 RATIO Normal 04-10 [facility] Comment on above: Order Comment: 130.2 Performed By: #### L 500.2500, L100.0500, L300.3900 #### [facility] [address] [place], [address] Calcium [Mass/Vol] 8.5 mg/dL Normal 7.6-11.[address] [facility] Comment on above: Order Comment: 130.2 Performed By: #### L 500.2500, L100.0500, L300.3900 #### [facility] [address] [place], [address] Chloride [Moles/Vol] 107 mmol/L Normal 98-108 [facility] Comment on above: Order Comment: 130.2 Performed By: #### L 500.2500, L100.0500, L300.3900 #### [facility] [address] [place], [address] CO2 [Moles/Vol] 26.6 mmol/L Normal 21.0-32.0 [facility] Comment on above: Order Comment: 130.2 Performed By: #### L 500.2500, L100.0500, L300.3900 #### [facility] [address] [place], [address] Creatinine [Mass/Vol] 0.93 mg/dL Normal 0.70-1.20 [facility] Comment on above: Order Comment: 130.2 Performed By: #### L 500.2500, L100.0500, L300.3900 #### [facility] [address] [place], [address] GAP 6 Normal -15 [facility] Comment on above: Order Comment: 130.2 Performed By: #### L 500.2500, L100.0500, L300.3900 #### [facility] [address] [place], [address] GFR/1.73 sq M.predicted among non-blacks MDRD (S/P/Bld) [Vol rate/Area] 65 mL/min/{1.73_m2} Normal >60 [facility] Comment on above: Order Comment: 130.2 Result Comment: mL/m in/1.73m2 CKD-EPI Creatinine Equation (2020) Performed By: #### L 500.2500, L100.0500, L300.3900 #### [facility] [address] [place], [address] Glucose [Mass/Vol] 97 mg/dL Normal 70-[address] [facility] Comment on above: Order Comment: 130.2 Performed By: #### L 500.2500, L100.0500, L300.3900 #### [facility] [address] [place], [address] Potassium [Moles/Vol] 4.9 mmol/L Normal 3.3-5.1 [facility] Comment on above: Order Comment: 130.2 Result Comment: Hemo lysis present, Results??could be affected. ?? Performed By: #### L 500.2500, L100.0500, L300.3900 #### [facility] [address] [place], [address] Sodium [Moles/Vol] 140 mmol/L Normal 133-[address] [facility] Comment on above: Order Comment: 130.2 Performed By: #### L 500.2500, L100.0500, L300.3900 #### [facility] [address] [place], [address] Urea nitrogen [Mass/Vol] 16 mg/dL Normal 4-19 [facility] Comment on above: Order Comment: 130.2 Performed By: #### L 500.2500, L100.0500, L300.3900 #### [facility] [address] [place], [address] CBC-Complete Blood Cnt No Ludy adamson 12-05-2024 Erythrocyte distribution width (RBC) [Ratio] 13.6 % Normal 11.6-14.6 [facility] Comment on above: Order Comment: 130.2 Performed By: #### L 500.2500, L100.0500, L300.3900 #### [facility] [address] [place], [address] Hematocrit (Bld) [Volume fraction] 31.9 % Low 37-47 [facility] Comment on above: Order Comment: 130.2 Performed By: #### L 500.2500, L100.0500, L300.3900 #### [facility] [address] [place], [address] Hemoglobin (Bld) [Mass/Vol] 10.4 g/dL Low 12.0-15.0 [facility] Comment on above: Order Comment: 130.2 Performed By: #### L 500.2500, L100.0500, L300.3900 #### [facility] [address] [place], [address] MCH (RBC) [Entitic mass] 30.2 pg Normal 27.0-32.0 [facility] Comment on above: Order Comment: 130.2 Performed By: #### L 500.2500, L100.0500, L300.3900 #### [facility] [address] [place], [address] MCHC (RBC) [Mass/Vol] 32.6 g/dL Normal 32-36 [facility] Comment on above: Order Comment: 130.2 Performed By: #### L 500.2500, L100.0500, L300.3900 #### [facility] [address] [place], [address] MCV (RBC) [Entitic vol] 92.7 fL Normal 81-99 [facility] Comment on above: Order Comment: 130.2 Performed By: #### L 500.2500, L100.0500, L300.3900 #### [facility] [address] [place], [address] Platelet mean volume (Bld) [Entitic vol] 10.1 fL Normal 6.2-12.0 [facility] Comment on above: Order Comment: 130.2 Performed By: #### L 500.2500, L100.0500, L300.3900 #### [facility] [address] [place], [address] Platelets (Bld) [#/Vol] 147 10*3/uL Low 150-450 [facility] Comment on above: Order Comment: 130.2 Performed By: #### L 500.2500, L100.0500, L300.3900 #### [facility] [address] [place], [address] RBC (Bld) [#/Vol] 3.44 10*6/uL Low 4.2-5.4 [facility] Comment on above: Order Comment: 130.2 Performed By: #### L 500.2500, L100.0500, L300.3900 #### [facility] [address] [place], [address] RDW SD 45.9 fl High 35.1-43.9 [facility] Comment on above: Order Comment: 130.2 Performed By: #### L 500.2500, L100.0500, L300.3900 #### [facility] [address] [place], [address] WBC (Bld) [#/Vol] 4.1 10*3/uL Low 4.4-11.[address] [facility] Comment on above: Order Comment: 130.2 Performed By: #### L 500.2500, L100.0500, L300.3900 #### [facility] [address] [place], [address] Carbon dioxide, total [Moles /volume] in Central venous bloodOrdered By: Min Marroquin on 12-05-2024 CO2 [Moles/Vol] 26.6 mmol/L 21.0-32.0 [facility] Chloride assayOrdered By: Rhea Marroquin on 12-05-2024 Chloride [Moles/Vol] 107 mmol/L 98-108 [facility] Erythrocyte distribution wid th ratioOrdered By: Min Marroquin on 12-05-2024 Erythrocyte distribution width (RBC) [Ratio] 13.6 % 11.6-14.6 [facility] Erythrocyte distribution wid th standard deviationOrdered By: Min Marroquin on 12-05-2024 Erythrocyte distribution width (RBC) [Ratio] 45.9 fl High 35.1-43.9 [facility] Glomerular filtration rate ( GFR) estimation/1.73 sq m using serum, plasma, or whole bOrdered By: Min Marroquin on 12-05-2024 GFR/1.73 sq M.predicted among non-blacks MDRD (S/P/Bld) [Vol rate/Area] 65 mL/min/{1.73_m2} >60 [facility] Comment on above: mL/min/1.73m2 CKD-EP I Creatinine Equation (2020) Hematocrit Auto (Bld) [Volum e fraction]Ordered By: Min Marroquin on 12-05-2024 Hematocrit (Bld) [Volume fraction] 31.9 % Low 37-47 [facility] Hemoglobin measurementOrdere d By: Min Marroquin on 12-05-2024 Hemoglobin (Bld) [Mass/Vol] 10.4 g/dL Low 12.0-15.0 [facility] International normalized rat io (INR) calculationOrdered By: Min Marroquin on 12-05-2024 INR Coag (Bld) [Relative time] 1.7 {INR} [facility] MCV (mean corpuscular volume ) determinationOrdered By: Min Marroquin on 12-05-2024 MCV (RBC) [Entitic vol] 92.7 fL 81-99 [facility] Mean corpuscular hemoglobin (MCH) determinationOrdered By: Min Marroquin on 12-05-2024 MCH (RBC) [Entitic mass] 30.2 pg 27.0-32.0 [facility] Mean corpuscular hemoglobin concentration (MCHC) determinationOrdered By: Min Marroquin on 12-05-2024 MCHC (RBC) [Mass/Vol] 32.6 g/dL 32-36 [facility] Mean platelet volume determi nationOrdered By: Min Marroquin on 12-05-2024 Platelet mean volume (Bld) [Entitic vol] 10.1 fL 6.2-12.0 [facility] Platelet countOrdered By: Rhea Marroquin on 12-05-2024 Platelets (Bld) [#/Vol] 147 10*3/uL Low 150-450 [facility] Potassium measurement (mass/ volume)Ordered By: Min Marroquin on 12-05-2024 Potassium (Unsp spec) [Mass/Vol] 4.9 mmol/L 3.3-5.1 [facility] Comment on above: Hemolysis present, R esults could be affected. Prothrombin Time w/INRon INR Coag (PPP) [Relative time] 1.7 {INR} Normal [facility] Comment on above: Order Comment: 130.2 Performed By: #### L 500.2500, L100.0500, L300.3900 #### [facility] [address] [place], [address] PT Coag (PPP) [Time] 20.2 s High 11.7-14.9 [facility] Comment on above: Order Comment: 130.2 Performed By: #### L 500.2500, L100.0500, L300.3900 #### [facility] [address] [place], [address] Prothrombin timeOrdered By: Min Marroquin on 12-05-2024 PT Coag (PPP) [Time] 20.2 s High 11.7-14.9 [facility] RBC Auto (Bld) [#/Vol]Ordere d By: Min Marroquin on 12-05-2024 RBC (Bld) [#/Vol] 3.44 10*6/uL Low 4.2-5.4 [facility] Serum creatinine measurement (mass/volume)Ordered By: Min Marroquin on 12-05-2024 Creatinine [Mass/Vol] 0.93 mg/dL 0.70-1.20 [facility] Serum glucose measurement (m ass/volume)Ordered By: Min Marroquin on 12-05-2024 Glucose [Mass/Vol] 97 mg/dL 70-[address] [facility] Serum or plasma calcium aura urement (mass/volume)Ordered By: Min Marroquin on 12-05-2024 Calcium [Mass/Vol] 8.5 mg/dL 7.6-11.[address] [facility] Serum or plasma urea nitroge n measurement (mass/volume)Ordered By: Min Marroquin on 12-05-2024 Urea nitrogen [Mass/Vol] 16 mg/dL 4-19 [facility] Sodium levelOrdered By: Min Marroquin on 12-05-2024 Sodium [Moles/Vol] 140 mmol/L 133-[address] [facility] White blood cell (WBC) count Ordered By: Min Marroquin on 12-05-2024 WBC (Bld) [#/Vol] 4.1 10*3/uL Low 4.4-11.[address] [facility] MRI ANKLE WO IVCON LTon 10-21 MRI ANKLE WO IVCON LT * * *Final Report* * * DATE OF EXAM: Nov 08 2024 11:35AM [facility] 0163 - MRI ANKLE WO IVCON LT [...] number above, please feel free to contact [facility] eRadiology at [phone]. [id number] [facility] CNOVon 10-27-2024 CNOV Office Visit (PODIWS ) RANDOLPH HUNTER ([id number]) 1950 F Date Time Provider Department 10/27/24 11:15 AM STEVEN PELAEZ PODIWS During your visit today, we recorded the [...] and injured herself. She is currently at [facility]. Has a history of cerebral [...] and speech therapies at the rehab center. SueSteven xavier 10/27/2024 11:29 AM Signed Subjective Simran is [...] sugar diagnost (more content not included)... Normal [facility] XR ANKLE 3V AP/LAT/OBL LTon 10-27-2024 [...] No radiographic evidence of acute osseous injury Mineral Resources Inspector: [facility] Transcribe Date/Time: Nov 01 2024 4:44P Dictated by : JAYDEN JOVEL MD This examination was interpreted and the report reviewed and electronically signed by: JAYDEN JOVEL MD on Nov 01 2024 4:45PM EST [id number] Normal [facility] XR TIBIA FIBULA 2V AP/LAT LT [...] No radiographic evidence of acute osseous injury Mineral Resources Inspector: [facility] Transcribe Date/Time: Nov 01 2024 4:44P Dictated by : JAYDEN JOVEL MD This examination was interpreted and the report reviewed and electronically signed by: JAYDEN JOVEL MD on Nov 01 2024 4:45PM EST [id number] Normal [facility] PT panel Coag (PPP)on 2024 INR Coag (PPP) [Relative time] 2.3 {INR} High 0.9-1.3 [facility] Comment on above: Order Comment: Suzanne garcia Type: BLOOD SPECIMEN Ordering Facility: [facility] Address: [address] [place] [address] Result Comment: Kaycee min K Antagonist (VKA) Therapeutic Range: INR 2 to 3 (Target INR of 2.5) Note: For patients treated with VKA drugs, such as warfarin, the [place] [employer] 2012 Guideline recommends [...] Chest 2012, 141:7S-47S Roshni RA, et al. [facility] 2017, 70: 252-289 Performed By: #### 3 4528-0 #### [facility] CLIA [id number] [address] [place], [place] [id number] [place] PT Coag (PPP) [Time] 23.1 s High 9.7-13.0 [facility] Comment on above: Order Comment: Suzanne garcia Type: BLOOD SPECIMEN Ordering Facility: [facility] Address: [address] [place] [address] Performed By: #### 3 4528-0 #### [facility] CLIA [id number] [address] [place], [place] [id number] [place] PT panel Coag (PPP)on 2024 INR Coag (PPP) [Relative time] 3.8 {INR} High 0.9-1.3 [facility] Comment on above: Order Comment: Suzanne garcia Type: BLOOD SPECIMEN Ordering Facility: [facility] Address: [address] [place] [address] Result Comment: Kaycee min K Antagonist (VKA) Therapeutic Range: INR 2 to 3 (Target INR of 2.5) Note: For patients treated with VKA drugs, such as warfarin, the [place] 2012 Guideline recommends [...] Chest 2012, 141:7S-47S Roshni RA, et al. [facility] 2017, 70: 252-289 Performed By: #### 3 4528-0 #### [facility] CLIA [id number] [address] [place] [address] [place] PT Coag (PPP) [Time] 37.1 s High 9.7-13.0 [facility] Comment on above: Order Comment: Suzanne garica Type: BLOOD SPECIMEN Ordering Facility: [facility] Address: [address] [place] [address] Performed By: #### 3 4528-0 #### [facility] CLIA [id number] [address] [place] [address] OF [place] CNOVon 10-19-2024 CNOV Office Visit (ORMDNA ) RANDOLPH HUNTER ([id number]) 1950 F Date Time Provider Department 10/19/24 [...] directed once a month. blood sugar diagnostic (DebtMarketUCH VERIO TEST STRIPS) test strip Test blood [...] Status Change Penicillins Hives Dioxicillin Promethazine Intolerance Yroqkwq-Tgo-Msz Red* Myalgia PAST MEDICAL HISTORY PAST MEDICAL HISTORY Diagnosis Date CAD (coronary artery disease) Carotid a (more content not included)... Normal [facility] Large Joint Arthro/Inj: L kn ee [...] these instructions. Informed Consent Consent Obtained: Verbal [place] Protocol A moment to CARE was completed. [...] the bedside nurse for hospitalized patients) applicable. [facility] CNDSon 09-28-2024 CNDS HNO ID: [id number] Author: SAGE LOERA MD Service: Hospital Medicine [...] inability to stand pivot necessitating going to shelter facility for rehab SUMMARY OF WHAT HAPPENED WHILE I WAS IN THE HOSPITAL: Orthopedics agrees no surgical intervention now resume exercises when you get to the shelter facility no ligamentous injury evident on CT [...] No pending results Discharge Disposition Discharge Disposition: Fdc Facility - Less than 30 Days Activity [...] to bear weight to transfer will need shelter home placement Anticoagulation: Prior to admission: Warfarin Current: Warfarin Smoking history: Never Diagnostic tests reviewed for today's visit: Most recent labs INTERVAL EVENTS: Randolph Hnuter is a 74 year old female presented [...] (cerebral palsy) (HCC) (POA: Yes) --Presented to [facility] for evaluation of left knee pain [...] lupus erythematosus) (HCC) (POA: Yes) --Plaquenil as WARP CLAMPER T (more content not included)... Normal [facility] Magnesium SerPl-mCncon 09-28 Magnesium [Mass/Vol] 1.7 mg/dL Normal 1.7-2.3 [facility] Comment on above: Order Comment: Suzanne garcia Type: BLOOD SPECIMENOrdering Facility: [facility] Address: [address] [place], [place] [address] Performed By: #### 1 9123-9 ####[facility] [id number] [place] [address] [facility] NURSING PROGon 09-28-2024 NURSING PROG HNO ID: [id number] Author: CHARLEY BARRIENTOS RN Service: Nursing Author Type: Registered Nurse Type: Nursing Progress Note Filed: 09/28/2024 16:32 Note Text: Other: 1625: Patient discharged in stable condition. Left floor via cart w/[employer] [place] [employer]. Discharge paperwork and all personal belongings w/patient. Normal [facility] PT panel Coag (PPP)on 2024 INR Coag (PPP) [Relative time] 2.1 {INR} High 0.9-1.3 [facility] Comment on above: Order Comment: Suzanne garcia Type: BLOOD SPECIMENOrdering Facility: [facility] Address: [address] [place], [place] [address] Result Comment: Kaycee min K Antagonist (VKA) Therapeutic Range: INR 2 to 3 (Target INR of 2.5) Note: For patients treated with VKA drugs, such as warfarin, the [employer] 2012 Guideline recommends [...] 3.5 (target INR of 3). Keegan SOUZA, sudhir holguin. Chest 2012, 141:7S-47S Roshni CASTILLO et al. [facility] 2017, 70: 252-289 Performed By: #### 3 4528-0 ####[facility]ORYCL[facility] [id number] [place] [id number] [place] PT Coag (PPP) [Time] 22.0 s High 9.7-13.0 [facility] Comment on above: Order Comment: Speccandelaria garcia Type: BLOOD SPECIMENOrdering Facility: [facility] Address: [address] [place] [address] Performed By: #### 3 4528-0 ####[facility] [id number] [address] STATES OF [place] PT panel Coag (PPP)on 2024 INR Coag (PPP) [Relative time] 2.8 {INR} High 0.9-1.3 [facility] Comment on above: Order Comment: Speccandelaria garcia Type: BLOOD SPECIMENOrdering Facility: [facility] Address: [address] [place] [address] Result Comment: Kaycee min K Antagonist (VKA) Therapeutic Range: INR 2 to 3 (Target INR of 2.5) Note: For patients treated with VKA drugs, such as warfarin, the [place] 2012 Guideline recommends [...] 2.5 to 3.5 (target INR of 3). kailey Gaytan. Chest 2012, 141:7S-47S Roshni CASTILLO et al. [facility] 2017, 70: 252-289 Performed By: #### 3 4528-0 ####[facility]ORYCLIA [id number] [place] [address] [place] PT Coag (PPP) [Time] 27.9 s High 9.7-13.0 [facility] Comment on above: Order Comment: Speci men Type: BLOOD SPECIMENOrdering Facility: [facility] Address: [address] [place], [place] [address] [address] Performed By: #### 3 4528-0 ####[facility]ORY[facility] [id number] [place] [id number] [facility] NUTRITIONon 09-26-2024 NUTRITION HNO ID: [id number] Author: SALVADOR ISLAS RD Service: Nutrition Therapy [...] Drain Duration External Collection Device 09/18/24 2332 [facility] 7 days MNT Billing: $ Reassessment: 1-15 minutes SIGNATURE: Salvador Islas RD PATIENT NAME: Randolph Hunetr DATE: September 26, 2024 TIME: 3:09 PM Normal [facility] PT panel Coag (PPP)on 2024 INR Coag (PPP) [Relative time] 4.1 {INR} High 0.9-1.3 [facility] Comment on above: Order Comment: Suzanne garcia Type: BLOOD SPECIMENOrdering Facility: [facility] Address: [address] [place], [place] [address] Result Comment: Kaycee min K Antagonist (VKA) Therapeutic Range: INR 2 to 3 (Target INR of 2.5) Note: For patients treated with VKA drugs, such as warfarin, the [place] 2012 Guideline recommends [...] Chest 2012, 141:7S-47S Roshni RA, et al. [facility] 2017, 70: 252-289 Performed By: #### 3 4528-0 ####[facility]ORYCLIA [id number] [address] STATES [place] PT Coag (PPP) [Time] 39.9 s High 9.7-13.0 [facility] Comment on above: Order Comment: Suzanne garcia Type: BLOOD SPECIMENOrdering Facility: [facility] Address: [address] [place] [address] Performed By: #### 3 4528-0 ####[facility]ORYCLIA [id number] [place] [id number] [place] THERAPY NTon 09-26-2024 THERAPY NT HNO ID: [id number] Author: ESTELLE CAGE PT Service: Physical Therapy Author Type: Physical Therapist Type: Therapy (PT/OT/Speech/Resp) Filed: 09/26/2024 12:08 Note Text: Summary: PT treatment Physical Therapy Treatment Summary SERVICE DATE: 09/26/2024 SERVICE TIME: 1130 to 1155 ROOM: [id number] PT 6 Clicks Score: 14 DISCHARGE RECOMMENDATIONS [...] is struggling to ambulate. Patient admitted to [facility] with Dx: Decreased activities of daily living (ADL), Fall at home, initial encounter Relevant Past Medical History: DM, edema, depression,asthma, obesity, irsutism, venous insufficiency, oseteomyeliitis of foot, SLE, cerebral palsy, pulmonary embolism, hypothyroidism, insomnai, CAD, migraines, HTN, hysterectomy HOME LIVING Patient Lives With: Facility Care, Spouse, Other: See Comment Comments: [place] with spouse Assistance Available: 24-Hour Comments: HALFWAY staff for toileting and shower Entry To Home: No Stairs Number Of Stairs To Bed/Bath: 0 Tub/Shower Type: Accessible WIS with shower chair + grab bars, has assistance/supervision for transfers Laundry: HALFWAY staff completes Equipment Owned: Lift Chair, Commode- [...] DIAGNOSIS Reduced mobility-other TREATMENT INTERVENTIONS Therapeutic Activity (23574) Timed Code Treatment (minutes): 25 Skilled Treatment Time (minutes): 25 Therapeutic Activity (14183) Treatment Minutes: 25 $ Therapeutic Activity (98668) Billed Units: 2 units TRAINING AND EDUCATION [...] Assistance, Additional Inform (more content not included)... [facility] THERAPY NT HNO ID: [id number] Author: BARBARA CHU OTR/Abiodun Service: Occupational Therapy Author Type: Occupational Therapist Type: Therapy (PT/OT/Speech/Resp) Filed: 09/26/2024 11:51 Note Text: Summary: OT precert note Occupational Therapy Treatment Summary SERVICE DATE: 09/26/2024 SERVICE TIME: 1100 to 1136 ROOM: [id number]- OT 6 Clicks Score: 13 DISCHARGE RECOMMENDATIONS [...] is struggling to ambulate. Patient admitted to [facility] with Dx: Decreased activities of daily living (ADL), Fall at home, initial encounter Relevant Past Medical History: DM, edema, depression,asthma, obesity, irsutism, venous insufficiency, oseteomyeliitis of foot, SLE, cerebral palsy, pulmonary embolism, hypothyroidism, insomnai, CAD, migraines, HTN, hysterectomy HOME LIVING Patient Lives With: Facility Care, Spouse, Other: See Comment Comments: HALFWAY with spouse Assistance Available: 24-Hour Comments: HALFWAY staff for toileting and shower Entry To Home: No Stairs Number Of Stairs To Bed/Bath: 0 Tub/Shower Type: Accessible WIS with shower chair + grab bars, has assistance/supervision for transfers Laundry: HALFWAY staff completes Equipment Owned: Lift Chair, Commode- [...] symptoms and signs-other TREATMENT INTERVENTIONS Therapeutic Exercise (76481), Self Prison Management (03569) Timed Code Treatment (minutes): 27 Skilled Treatment [...] Contact Guard Assista (more content not included)... [facility] THERAPY NT HNO ID: [id number] Author: ESTELLE CAGE PT Service: Physical Therapy Author Type: Physical Therapist Type: Therapy (PT/OT/Speech/Resp) Filed: 09/26/2024 10:54 Note Text: PHYSICAL THERAPY MISSED VISIT SERVICE DATE: 09/26/2024 SERVICE TIME: 1045 ROOM: [place] [address] Patient not seen due to Patient Not Available.patient was cleaned up and had another bowel movement and has called for assist getting cleaned up. Will re approach when available/appropriate. Secure chat to team and spoke with cm. SIGNATURE: Estelle Cage PT PATIENT NAME: Randolph Hunter DATE: September 26, 2024 TIME: 10:53 AM [facility] NT HNO ID: [id number] Author: ESTELLE CAGE PT Service: Physical Therapy Author Type: Physical Therapist Type: Therapy (PT/OT/Speech/Resp) Filed: 09/26/2024 09:42 Note Text: Summary: PT missed visit PHYSICAL THERAPY MISSED VISIT SERVICE DATE: 09/26/2024 SERVICE TIME: 929 ROOM: [place] [address] Patient not seen due to Patient Not Available. Patient was incontinent of bowel and PCNA in room to get patient cleaned up. Received request from for precert. Will re approach as patient is available. SIGNATURE: Estelle Cage PT PATIENT NAME: Randolph Hunter DATE: September 26, 2024 TIME: 9:41 AM [facility] THERAPY NT HNO ID: [id number] Author: TANIA LIANG OT/Abiodun Service: Occupational Therapy Author Type: Occupational Therapist Type: Therapy (PT/OT/Speech/Resp) Filed: 09/26/2024 09:21 Note Text: Summary: OT Missed Visit OCCUPATIONAL THERAPY MISSED VISIT SERVICE DATE: 09/26/2024 SERVICE TIME: 907 ROOM: [place] [address] Patient not seen due to Patient Not Available. Initiated OT session however pt became incontinent of bowel during progression of supine>sit. PCNA and RN notified, deferred further OT at this time. CM notified as this patient has precert needs. Will re-attempt as schedule allows. SIGNATURE: NING Baker PATIENT NAME: Randolph Hunter DATE: September 26, 2024 TIME: 9:19 AM [facility] CBC panel Auto (Bld)on 09-25 Erythrocyte distribution width (RBC) [Ratio] 13.5 % Normal 11.5-15.0 [facility] Comment on above: Order Comment: Speci men Type: BLOOD SPECIMENOrdering Facility: [facility] Address: [address] [place] [address] Performed By: #### 5 8410-2 ####[facility]ORYCLIA [id number] [address] Hematocrit (Bld) [Volume fraction] 38.8 % Normal 36.0-46.0 [facility] Comment on above: Order Comment: Speci men Type: BLOOD SPECIMENOrdering Facility: [facility] Address: [address] [place] [address] Performed By: #### 5 8410-2 ####[facility]ORYCLIA [id number] [address] Hemoglobin (Bld) [Mass/Vol] 13.1 g/dL Normal 11.5-15.5 [facility] Comment on above: Order Comment: Speci men Type: BLOOD SPECIMENOrdering Facility: [facility] Address: [address] [place] [address] Performed By: #### 5 8410-2 ####[facility]ORYCLIA [id number] [address] MCH (RBC) [Entitic mass] 30.7 pg Normal 26.0-34.0 [facility] Comment on above: Order Comment: Speci men Type: BLOOD SPECIMENOrdering Facility: [facility] Address: [address] [place] [address] Performed By: #### 5 8410-2 ####[facility]ORYCLIA [id number] [address] MCHC (RBC) [Mass/Vol] 33.8 g/dL Normal 30.5-36.0 [facility] Comment on above: Order Comment: Speci men Type: BLOOD SPECIMENOrdering Facility: [facility] Address: [address] [place] [address] Performed By: #### 5 8410-2 ####[facility]ORYCLIA [id number] [address] OF [place] MCV (RBC) [Entitic vol] 90.9 fL Normal 80.0-100.0 [facility] Comment on above: Order Comment: Speci men Type: BLOOD SPECIMENOrdering Facility: [facility] Address: [address] [place] [address] Performed By: #### 5 8410-2 ####[facility]ORYCLIA [id number] [address] Nucleated RBC (Bld) [#/Vol] 10*3/uL Normal <0.01 [facility] Comment on above: Order Comment: Speci men Type: BLOOD SPECIMENOrdering Facility: [facility] Address: [address] [place] [address] Performed By: #### 5 8410-2 ####[facility]ATORYCLIA [id number] [address] [place] Platelet mean volume (Bld) [Entitic vol] 10.2 fL Normal 9.0-12.7 [facility] Comment on above: Order Comment: Speci men Type: BLOOD SPECIMENOrdering Facility: [facility] Address: [address] [place] [address] Performed By: #### 5 8410-2 ####[facility]ORYCLIA [id number] [address] Platelets (Bld) [#/Vol] 200 10*3/uL Normal 150-400 [facility] Comment on above: Order Comment: Speci men Type: BLOOD SPECIMENOrdering Facility: [facility] Address: [address] [place] [address] Performed By: #### 5 8410-2 ####[facility]ORYCLIA [id number] [address] [place] RBC (Bld) [#/Vol] 4.27 10*6/uL Normal 3.90-5.20 [facility] Comment on above: Order Comment: Speci men Type: BLOOD SPECIMENOrdering Facility: [facility] Address: [address] [place] [address] Performed By: #### 5 8410-2 ####[facility]ORYCLIA [id number] [address] WBC (Bld) [#/Vol] 10.28 10*3/uL Normal 3.70-11.00 [facility] Comment on above: Order Comment: Speci men Type: BLOOD SPECIMENOrdering Facility: [facility] Address: [address] [place] [address] Performed By: #### 5 8410-2 ####[facility]ORYCLIA [id number] [address] Comprehensive metabolic 2000 panelon 09-25-2024 Albumin [Mass/Vol] 3.0 g/dL Low 3.9-4.9 [facility] Comment on above: Order Comment: Speci men Type: BLOOD SPECIMENOrdering Facility: [facility] Address: [address] [place] [address] Performed By: #### 1 9123-9, 46018-5 ####[facility]ORYCLIA [id number] [address] ALP [Catalytic activity/Vol] 41 U/L Normal 34-123 [facility] Comment on above: Order Comment: Speci men Type: BLOOD SPECIMENOrdering Facility: [facility] Address: [place] [place] [address] Performed By: #### 1 9123-9, 93628-0 ####[facility]ATORYCLIA [id number] [address] ALT [Catalytic activity/Vol] 11 U/L Normal 7-38 [facility] Comment on above: Order Comment: Speci men Type: BLOOD SPECIMENOrdering Facility: [facility] Address: [address] [place] [address] Performed By: #### 1 9123-9, 30985-0 ####[facility]ORATORYCLIA [id number] [address] OF [place] Anion gap [Moles/Vol] 11 mmol/L Normal 8-15 [facility] Comment on above: Order Comment: Speci men Type: BLOOD SPECIMENOrdering Facility: [facility] Address: [address] [place] [address] Performed By: #### 1 9, ####[facility]ORATORYCLIA [id number] [place] [address] [place] AST [Catalytic activity/Vol] 21 U/L Normal 13-35 [facility] Comment on above: Order Comment: Speci men Type: BLOOD SPECIMENOrdering Facility: [facility] Address: [address] [place] [address] Performed By: #### 1 9, ####[facility]ORATORYCLIA [id number] [place] [address] [place] Bilirubin [Mass/Vol] 0.3 mg/dL Normal 0.2-1.3 [facility] Comment on above: Order Comment: Speci men Type: BLOOD SPECIMENOrdering Facility: [facility] Address: [address] [place] [address] Performed By: #### 1 9, ####[facility]ORATORYCLIA [id number] [place] [address] [place] Calcium [Mass/Vol] 9.0 mg/dL Normal 8.5-10.2 [facility] Comment on above: Order Comment: Speci men Type: BLOOD SPECIMENOrdering Facility: [facility] Address: [address] [place] [address] Performed By: #### 1 9, ####[facility]ORATORYCLIA [id number] [place] [address] [place] Chloride [Moles/Vol] 99 mmol/L Normal 98-107 [facility] Comment on above: Order Comment: Speci men Type: BLOOD SPECIMENOrdering Facility: [facility] Address: [address] [place] [address] [place] [address] Performed By: #### 1 239, ####[facility]ORATORYCLIA [id number] [place] [address] [place] CO2 [Moles/Vol] 24 mmol/L Normal 22-30 [facility] Comment on above: Order Comment: Suzanne garcia Type: BLOOD SPECIMENOrdering Facility: [facility] Address: [address] [place] [address] Performed By: #### 1 9123-9, ####[facility]ATORYCLIA [id number] [place] [address] [place] Creatinine [Mass/Vol] 0.66 mg/dL Normal 0.58-0.96 [facility] Comment on above: Order Comment: Suzanne garcia Type: BLOOD SPECIMENOrdering Facility: [facility] Address: [address] [place] [address] Performed By: #### 1 9123-9, ####[facility]ORATORYCLIA [id number] [address] Creatinine and Glomerular filtration rate.predicted panel (S/P/Bld) 93 mL/min/1.73m??? Normal >=60 [facility] Comment on above: Order Comment: Suzanne gracia Type: BLOOD SPECIMENOrdering Facility: [facility] Address: [address] [place] [address] Result Comment: Winifred mated Glomerular Filtration Rate [...] actual GFR. Performed By: #### 1 9123-9, ####[facility]ORATORYCLIA [id number] [place] [address] [place] Glucose [Mass/Vol] 202 mg/dL High 74-99 [facility] Comment on above: Order Comment: Suzanne radha Type: BLOOD SPECIMENOrdering Facility: [facility] Address: [address] [place] [address] Result Comment: The [place] [employer] (ADA) provides guidance for cutoff [...] Standards of Medical Care in Diabetes 2016, [place] [employer]. Diabetes Care. 2016.39(Suppl 1). Performed By: #### 1 9123-9, 43744-1 ####[facility]ORATORYCLIA [id number] [place] [address] [place] Potassium [Moles/Vol] 4.4 mmol/L Normal 3.7-5.1 [facility] Comment on above: Order Comment: Suzanne garcia Type: BLOOD SPECIMENOrdering Facility: [facility] Address: [address] [place] [address] Performed By: #### 1 239, ####[facility]ORATORYCLIA [id number] [place] [address] [place] Protein [Mass/Vol] 6.0 g/dL Low 6.3-8.0 [facility] Comment on above: Order Comment: Suzanne garcia Type: BLOOD SPECIMENOrdering Facility: [facility] Address: [address] [place] [address] Performed By: #### 1 23-9, ####[facility] LABORATORYCLIA [id number] [place] [address] [place] Sodium [Moles/Vol] 134 mmol/L Low 136-144 [facility] Comment on above: Order Comment: Suzanne garcia Type: BLOOD SPECIMENOrdering Facility: [facility] Address: [address] [place] [address] Performed By: #### 1 239, 35320-2 ####CERVANTES LABORATORYCLIA [id number] [place] [address] [place] Urea nitrogen [Mass/Vol] 14 mg/dL Normal 7-21 [facility] Comment on above: Order Comment: Suzanne garcia Type: BLOOD SPECIMENOrdering Facility: [facility] Address: [address] [place], [place] [address] Performed By: #### 1 9123-9, 77149-6 ####[facility] LABORATORYCLIA [id number] [place] [address] [place] Magnesium SerPl-mCncon 09-25 Magnesium [Mass/Vol] 1.5 mg/dL Low 1.7-2.3 [facility] Comment on above: Order Comment: Suzanne garcia Type: BLOOD SPECIMENOrdering Facility: [facility] Address: [address] [place] [address] Performed By: #### 1 9123-9, 64240-6 ####[facility] LABORATORYCLIA [id number] [place] [id number] [place] PT panel Coag (PPP)on 2024 INR Coag (PPP) [Relative time] 4.2 {INR} High 0.9-1.3 [facility] Comment on above: Order Comment: Suzanne garcia Type: BLOOD SPECIMENOrdering Facility: [facility] Address: [address] [place] [address] Result Comment: Kaycee min K Antagonist (VKA) Therapeutic Range: INR 2 to 3 (Target INR of 2.5) Note: For patients treated with VKA drugs, such as warfarin, the [employer] 2012 Guideline recommends [...] Chest 2012, 141:7S-47S Roshni CASTILLO et al. [facility] 2017, 70: 252-289 Performed By: #### 3 4528-0 ####[facility] LABORATORYCLIA [id number] [place] [id number] [facility] [place] PT Coag (PPP) [Time] 41.3 s High 9.7-13.0 [facility] Comment on above: Order Comment: Suzanne garcia Type: BLOOD SPECIMENOrdering Facility: [facility] Address: [address] [place] [address] Performed By: #### 3 4528-0 ####[facility] LABORATORYCLIA [id number] [place] [phone] [facility] [place] CONSULT PROGon 09-23-2024 CONSULT PROG HNO ID: [id number] Author: PIPE FREEMAN RPh Service: Pharmacy Author [...] RPh DATE/TIME: 09/23/2024 12:07 PM Normal [facility] PT panel Coag (PPP)on 2024 INR Coag (PPP) [Relative time] 2.9 {INR} High 0.9-1.3 [facility] Comment on above: Order Comment: Suzanne garcia Type: BLOOD SPECIMENOrdering Facility: [facility] Address: [address] [place] [address] Result Comment: Kaycee min K Antagonist (VKA) Therapeutic Range: INR 2 to 3 (Target INR of 2.5) Note: For patients treated with VKA drugs, such as warfarin, the [employer] 2012 Guideline recommends [...] al. Chest 2012, 141:7S-47S Roshni CASTILLO et ezio. [facility] 2017, 70: 252-289 Performed By: #### 3 4528-0 ####[facility] LABORATORYCLIA [id number] [place] [phone] [place] [facility] PT Coag (PPP) [Time] 29.1 s High 9.7-13.0 [facility] Comment on above: Order Comment: Naeemi men Type: BLOOD SPECIMENOrdering Facility: [facility] Address: [address] [place] [address] Performed By: #### 3 4528-0 ####[facility] LABORATORYCLIA [id number] [place] [phone] [facility] PT panel Coag (PPP)on 2024 INR Coag (PPP) [Relative time] 2.8 {INR} High 0.9-1.3 [facility] Comment on above: Order Comment: Naeemi men Type: BLOOD SPECIMENOrdering Facility: [facility] Address: [address] [place] [address] Result Comment: Kaycee min K Antagonist (VKA) Therapeutic Range: INR 2 to 3 (Target INR of 2.5) Note: For patients treated with VKA drugs, such as warfarin, the [employer] 2012 Guideline recommends [...] 2.5 to 3.5 (target INR of 3). kailey Gaytan. Chest 2012, 141:7S-47S Roshni RA, et al. J[facility] 2017, 70: 252-289 Performed By: #### 3 4528-0 ####[facility] LABORATORYCLIA [id number] [place] [address] [place] PT Coag (PPP) [Time] 27.8 s High 9.7-13.0 [facility] Comment on above: Order Comment: Speci men Type: BLOOD SPECIMENOrdering Facility: [facility] Address: [address] [place] [address] Performed By: #### 3 4528-0 ####[facility] LABORATORYCLIA [id number] [place] [address] [facility] [place] THERAPY NTon 09-22-2024 THERAPY NT HNO ID: [id number] Author: ESTELLE CAGE PT Service: Physical Therapy Author Type: Sewer Pipe Press Operator Type: Therapy (PT/OT/Speech/Resp) Filed: 09/22/2024 17:13 Note Text: Attestation signed by Estelle Cage PT at 09/22/2024 5:13 PM I reviewed and agree with the documentation corresponding to this therapy visit. SIGNATURE: Estelle Cage PT DATE: September 22, 2024 TIME: 5:13 PM Summary: PT Treat Physical Therapy Treatment Summary SERVICE DATE: 09/22/2024 SERVICE TIME: 1408 to 1439 ROOM: [id number] PT 6 Clicks Score: 12 DISCHARGE RECOMMENDATIONS [...] is struggling to ambulate. Patient admitted to [facility] with Dx: Decreased activities of daily living (ADL), Fall at home, initial encounter Relevant Past Medical History: DM, edema, depression,asthma, obesity, irsutism, venous insufficiency, oseteomyeliitis of foot, SLE, cerebral palsy, pulmonary embolism, hypothyroidism, insomnai, CAD, migraines, HTN, hysterectomy HOME LIVING Patient Lives With: Facility Care, Spouse, Other: See Comment Comments: [place] with spouse Assistance Available: 24-Hour Comments: [facility] staff for toileting and shower Entry To Home: No Stairs Number Of Stairs To Bed/Bath: 0 Tub/Shower Type: Accessible WIS with shower chair + grab bars, has assistance/supervision for transfers Laundry: [facility] staff completes Equipment Owned: Lift Chair, Commode- [...] DIAGNOSIS Reduced mobility-other TREATMENT INTERVENTIONS Therapeutic Activity (42619) Timed Code Treatment (minutes): 31 Skilled Treatment Time (minutes): 31 Therapeutic Activity (23184) Treatment Minutes: 31 $ Therapeutic Activity (91640) Billed Units: 2 units TRAINING AND EDUCATION [...] Sit: Modified In (more content not included)... [facility] THERAPY NT HNO ID: [id number] Author: CHRISTIANO MAYEN, OT/L Service: ? Author Type: Occupational Therapist Type: Therapy (PT/OT/Speech/Resp) Filed: 09/22/2024 09:46 Note Text: Summary: OT Treatment Occupational Therapy Treatment Summary SERVICE DATE: 09/22/2024 SERVICE TIME: 0858 to 0940 ROOM: [place] [address] OT 6 Clicks Score: 14 DISCHARGE RECOMMENDATIONS [...] is struggling to ambulate. Patient admitted to [facility] with Dx: Decreased activities of daily living (ADL), Fall at home, initial encounter Relevant Past Medical History: DM, edema, depression,asthma, obesity, irsutism, venous insufficiency, oseteomyeliitis of foot, SLE, cerebral palsy, pulmonary embolism, hypothyroidism, insomnai, CAD, migraines, HTN, hysterectomy HOME LIVING Patient Lives With: Facility Care, Spouse, Other: See Comment Comments: [place] with spouse Assistance Available: 24-Hour Comments: [facility] staff for toileting and shower Entry To Home: No Stairs Number Of Stairs To Bed/Bath: 0 Tub/Shower Type: Accessible WIS with shower chair + grab bars, has assistance/supervision for transfers Laundry: [facility] staff completes Equipment Owned: Lift Chair, Commode- [...] (generalized), Unsteadiness on feet TREATMENT INTERVENTIONS Self Prison Management (88677), Therapeutic Activity (67868) Timed Code Treatment (minutes): 40 Skilled Treatment Time (minutes): 40 TRAINING AND EDUCATION PROVIDED Activity Adaptation/Compensatory Strategies, Adaptive Equipment/DME, Bed Mobility, Benefits of In-Hospital Mobility, Cognitive Skills, Command Following, Discharge Planning, Expected Functional Level, Functional Mobility Involving ADLs, Grooming Tasks, Fine Motor Coordination, Insight into Deficits, Lower Extremity Dressing, Feeding Tasks, Memory/Attention, Orientation, Positioning, Role of Occupational Therapy, Safety/Judgment, Sitting Balance to Improve Maple with ADLs/Self-Care, Standing Balance to Improve Maple with ADLs/Self-Care, Transfer - Sit to Stand, Upper Extremity Bathing THERAPEUTIC SKILLS USED Activity Dosing, Cues for Sequencing/Proper Technique for Activity, Cuing Tactile, Cuing Verbal, Cuing Visual, Facilitation of Joint Range of Motion, Movement Facilitation, Muscle Activation Facilitation, Physical Assist, Task Analysis Learning, Teach-Back fo (more content not included)... Normal [facility] CBC panel Auto (Bld)on 09-21 Erythrocyte distribution width (RBC) [Ratio] 13.2 % Normal 11.5-15.0 [facility] Comment on above: Order Comment: Speci men Type: BLOOD SPECIMENOrdering Facility: [facility] Address: [address] [place] [address] Performed By: #### 5 8410-2 ####C[facility]ES LABORATORYCLIA [id number] [address] Hematocrit (Bld) [Volume fraction] 33.6 % Low 36.0-46.0 [facility] Comment on above: Order Comment: Speci men Type: BLOOD SPECIMENOrdering Facility: [facility] Address: [address] [place] [address] Performed By: #### 5 8410-2 ####CERV[facility] LABORATORYCLIA [id number] [address] Hemoglobin (Bld) [Mass/Vol] 11.4 g/dL Low 11.5-15.5 [facility] Comment on above: Order Comment: Speci men Type: BLOOD SPECIMENOrdering Facility: [facility] Address: [address] [place] [address] Performed By: #### 5 8410-2 ####C[facility] LABORATORYCLIA [id number] [address] MCH (RBC) [Entitic mass] 30.8 pg Normal 26.0-34.0 [facility] Comment on above: Order Comment: Speci men Type: BLOOD SPECIMENOrdering Facility: [facility] Address: [address] [place] [address] Performed By: #### 5 8410-2 ####[facility] LABORATORYCLIA [id number] [address] MCHC (RBC) [Mass/Vol] 33.9 g/dL Normal 30.5-36.0 [facility] Comment on above: Order Comment: Speci men Type: BLOOD SPECIMENOrdering Facility: [facility] Address: [address] [place] [address] Performed By: #### 5 8410-2 ####[facility] LABORATORYCLIA [id number] [address] MCV (RBC) [Entitic vol] 90.8 fL Normal 80.0-100.0 [facility] Comment on above: Order Comment: Speci men Type: BLOOD SPECIMENOrdering Facility: [facility] Address: [address] [place] [address] Performed By: #### 5 8410-2 ####[facility] LABORATORYCLIA [id number] [address] Nucleated RBC (Bld) [#/Vol] 10*3/uL Normal <0.01 [facility] Comment on above: Order Comment: Speci men Type: BLOOD SPECIMENOrdering Facility: [facility] Address: [address] [place] [address] Performed By: #### 5 8410-2 ####[facility] LABORATORYCLIA [id number] [address] Platelet mean volume (Bld) [Entitic vol] 10.2 fL Normal 9.0-12.7 [facility] Comment on above: Order Comment: Speci men Type: BLOOD SPECIMENOrdering Facility: [facility] Address: [address] [place] [address] Performed By: #### 5 8410-2 ####CERV[facility] LABORATORYCLIA [id number] [address] Platelets (Bld) [#/Vol] 177 10*3/uL Normal 150-400 [facility] Comment on above: Order Comment: Speci men Type: BLOOD SPECIMENOrdering Facility: [facility] Address: [address] [place] [address] Performed By: #### 5 8410-2 ####C[facility] LABORATORYCLIA [id number] [address] [place] RBC (Bld) [#/Vol] 3.70 10*6/uL Low 3.90-5.20 [facility] Comment on above: Order Comment: Speci men Type: BLOOD SPECIMENOrdering Facility: [facility] Address: [address] [place] [address] Performed By: #### 5 8410-2 ####[facility] LABORATORYCLIA [id number] [address] OF [facility] WBC (Bld) [#/Vol] 5.94 10*3/uL Normal 3.70-11.00 [facility] Comment on above: Order Comment: Speci men Type: BLOOD SPECIMENOrdering Facility: [facility] Address: [address] [place] [address] Performed By: #### 5 8410-2 ####C[facility] LABORATORYCLIA [id number] [address] OF [facility] Comprehensive metabolic 2000 panelon 09-21-2024 Albumin [Mass/Vol] 2.8 g/dL Low 3.9-4.9 [facility] Comment on above: Order Comment: Speci men Type: BLOOD SPECIMENOrdering Facility: [facility] Address: [address] [place] [address] Performed By: #### 1 9123-9, 59410-8 ####CERV[facility] LABORATORYCLIA [id number] [address] [place] ALP [Catalytic activity/Vol] 33 U/L Low 34-123 [facility] Comment on above: Order Comment: Speci men Type: BLOOD SPECIMENOrdering Facility: [facility] Address: [address] [place] [address] Performed By: #### 1 9123-9, 97783-9 ####[facility] LABORATORYCLIA [id number] [address] ALT [Catalytic activity/Vol] 7 U/L Normal 7-38 [facility] Comment on above: Order Comment: Speci men Type: BLOOD SPECIMENOrdering Facility: [facility] Address: [address] [place] [address] Performed By: #### 1 9123-9, 61182-1 ####CERVANT[facility] LABORATORYCLIA [id number] [place] [address] [place] Anion gap [Moles/Vol] 8 mmol/L Normal 8-15 [facility] Comment on above: Order Comment: Speci men Type: BLOOD SPECIMENOrdering Facility: [facility] Address: [address] [place] [address] [place] [address] Performed By: #### 1 23-9, 70483-4 ####CERVANT[facility] LABORATORYCLIA [id number] [place] [address] [place] AST [Catalytic activity/Vol] 18 U/L Normal 13-35 [facility] Comment on above: Order Comment: Speci men Type: BLOOD SPECIMENOrdering Facility: [facility] Address: [address] [place] [address] Performed By: #### 1 239, ####C[facility] LABORATORYCLIA [id number] [place] [address] [place] Bilirubin [Mass/Vol] 0.2 mg/dL Normal 0.2-1.3 [facility] Comment on above: Order Comment: Speci men Type: BLOOD SPECIMENOrdering Facility: [facility] Address: [address] [place] [address] Performed By: #### 1 239, ####CERV[facility] LABORATORYCLIA [id number] [place] [address] [place] Calcium [Mass/Vol] 8.4 mg/dL Low 8.5-10.2 [facility] Comment on above: Order Comment: Speci men Type: BLOOD SPECIMENOrdering Facility: [facility] Address: [address] [place] [address] Performed By: #### 1 23-9, 18225-2 ####C[facility] LABORATORYCLIA [id number] [place] [address] [place] Chloride [Moles/Vol] 103 mmol/L Normal 98-107 [facility] Comment on above: Order Comment: Speci men Type: BLOOD SPECIMENOrdering Facility: [facility] Address: [address] [place] [address] Performed By: #### 1 239, 16855-3 ####C[facility] LABORATORYCLIA [id number] [place] [address] [place] CO2 [Moles/Vol] 27 mmol/L Normal 22-30 [facility] Comment on above: Order Comment: Suzanne garcia Type: BLOOD SPECIMENOrdering Facility: [facility] Address: [address] [place] [address] Performed By: #### 1 9123-9, 13034-7 ####CERV[facility] LABORATORYCLIA [id number] [address] STATES OF [facility] Creatinine [Mass/Vol] 0.79 mg/dL Normal 0.58-0.96 [facility] Comment on above: Order Comment: Naeemi men Type: BLOOD SPECIMENOrdering Facility: [facility] Address: [address] [place] [address] Performed By: #### 1 9123-9, 81186-6 ####CERV[facility] LABORATORYCLIA [id number] [address] Creatinine and Glomerular filtration rate.predicted panel (S/P/Bld) 79 mL/min/1.73m??? Normal >=60 [facility] Comment on above: Order Comment: Suzanne men Type: BLOOD SPECIMENOrdering Facility: [facility] Address: [address] [place] [address] Result Comment: Winifred mated Glomerular Filtration Rate [...] actual GFR. Performed By: #### 1 9123-9, 14985-6 ####CERVANTES LABORATORYCLIA [id number] [place] [id number] [place] Glucose [Mass/Vol] 115 mg/dL High 74-99 [facility] Comment on above: Order Comment: Suzanne radha Type: BLOOD SPECIMENOrdering Facility: [facility] Address: [address] [place] [address] Result Comment: The [place] [employer] (ADA) provides guidance for cutoff [...] Standards of Medical Care in Diabetes 2016, [place] [employer]. Diabetes Care. 2016.39(Suppl 1). Performed By: #### 1 9123-9, ####CERV[facility] LABORATORYCLIA [id number] [place] [address] [place] Potassium [Moles/Vol] 4.8 mmol/L Normal 3.7-5.1 [facility] Comment on above: Order Comment: Suzanne garcia Type: BLOOD SPECIMENOrdering Facility: [facility] Address: [address] [place] [address] Performed By: #### 1 239, ####CERVANT[facility] LABORATORYCLIA [id number] [place] [address] [place] Protein [Mass/Vol] 5.6 g/dL Low 6.3-8.0 [facility] Comment on above: Order Comment: Suzanne garcia Type: BLOOD SPECIMENOrdering Facility: [facility] Address: [address] [place] [address] Performed By: #### 1 239, ####CERVANTES LABORATORYCLIA [id number] [place] [address] [place] Sodium [Moles/Vol] 138 mmol/L Normal 136-144 [facility] Comment on above: Order Comment: Suzanne garcia Type: BLOOD SPECIMENOrdering Facility: [facility] Address: [address] [place] [address] Performed By: #### 1 9123-9, 98993-8 ####CERVANT[facility] LABORATORYCLIA [id number] [place] [address] [place] Urea nitrogen [Mass/Vol] 16 mg/dL Normal 7- [facility] Comment on above: Order Comment: Suzanne garcia Type: BLOOD SPECIMENOrdering Facility: [facility] Address: [address] [place], [place] [address] Performed By: #### 1 9123-9, 66692-2 ####[facility] LABORATORYCLIA [id number] [place] [address] [facility] Magnesium SerPl-mCncon 09-21 Magnesium [Mass/Vol] 1.9 mg/dL Normal 1.7-2.3 [facility] Comment on above: Order Comment: Suzanne garcia Type: BLOOD SPECIMENOrdering Facility: [facility] Address: [address] [place], [place] [address] Performed By: #### 1 9123-9, 10041-2 ####[facility] LABORATORYCLIA [id number] [place] [address] [facility] PT panel Coag (PPP)on 2024 INR Coag (PPP) [Relative time] 2.5 {INR} High 0.9-1.3 [facility] Comment on above: Order Comment: Suzanne garcia Type: BLOOD SPECIMENOrdering Facility: [facility] Address: [address] [place], [place] [address] Result Comment: Kaycee min K Antagonist (VKA) Therapeutic Range: INR 2 to 3 (Target INR of 2.5) Note: For patients treated with VKA drugs, such as warfarin, the [place] [employer] 2012 Guideline recommends [...] Chest 2012, 141:7S-47S Roshni CASTILLO et al. [facility] 2017, 70: 252-289 Performed By: #### 3 4528-0 ####[facility] LABORATORYCLIA [id number] [address] PT Coag (PPP) [Time] 25.1 s High 9.7-13.0 [facility] Comment on above: Order Comment: Speci men Type: BLOOD SPECIMENOrdering Facility: [facility] Address: [address] [place] [address] Performed By: #### 3 4528-0 ####CERV[facility] LABORATORYCLIA [id number] [address] CBC panel Auto (Bld)on 09-20 Erythrocyte distribution width (RBC) [Ratio] 13.2 % Normal 11.5-15.0 [facility] Comment on above: Order Comment: Speci men Type: BLOOD SPECIMENOrdering Facility: [facility] Address: [address] [place] [address] Performed By: #### 5 8410-2 ####[facility] LABORATORYCLIA [id number] [address] Hematocrit (Bld) [Volume fraction] 36.8 % Normal 36.0-46.0 [facility] Comment on above: Order Comment: Speci men Type: BLOOD SPECIMENOrdering Facility: [facility] Address: [address] [place] [address] Performed By: #### 5 8410-2 ####CERV[facility] LABORATORYCLIA [id number] [address] Hemoglobin (Bld) [Mass/Vol] 12.4 g/dL Normal 11.5-15.5 [facility] Comment on above: Order Comment: Speci men Type: BLOOD SPECIMENOrdering Facility: [facility] Address: [address] [place] [address] Performed By: #### 5 8410-2 ####CERV[facility] LABORATORYCLIA [id number] [address] MCH (RBC) [Entitic mass] 30.8 pg Normal 26.0-34.0 [facility] Comment on above: Order Comment: Speci men Type: BLOOD SPECIMENOrdering Facility: [facility] Address: [address] [place] [address] Performed By: #### 5 8410-2 ####CERVANT[facility] LABORATORYCLIA [id number] [address] MCHC (RBC) [Mass/Vol] 33.7 g/dL Normal 30.5-36.0 [facility] Comment on above: Order Comment: Speci men Type: BLOOD SPECIMENOrdering Facility: [facility] Address: [address] [place] [address] Performed By: #### 5 8410-2 ####CERVANTES LABORATORYCLIA [id number] [address] [place] MCV (RBC) [Entitic vol] 91.5 fL Normal 80.0-100.0 [facility] Comment on above: Order Comment: Speci men Type: BLOOD SPECIMENOrdering Facility: [facility] Address: [address] [place] [address] Performed By: #### 5 8410-2 ####CERVANT[facility] LABORATORYCLIA [id number] [address] Nucleated RBC (Bld) [#/Vol] 10*3/uL Normal <0.01 [facility] Comment on above: Order Comment: Speci men Type: BLOOD SPECIMENOrdering Facility: [facility] Address: [address] [place] [address] Performed By: #### 5 8410-2 ####CERVANT[facility] LABORATORYCLIA [id number] [address] [place] Platelet mean volume (Bld) [Entitic vol] 10.2 fL Normal 9.0-12.7 [facility] Comment on above: Order Comment: Speci men Type: BLOOD SPECIMENOrdering Facility: [facility] Address: [address] [place] [address] Performed By: #### 5 8410-2 ####CERVANTES LABORATORYCLIA [id number] [address] [place] Platelets (Bld) [#/Vol] 175 10*3/uL Normal 150-400 [facility] Comment on above: Order Comment: Speci men Type: BLOOD SPECIMENOrdering Facility: [facility] Address: [address] [id number] Performed By: #### 5 8410-2 ####CERVANTES LABORATORYCLIA [id number] [address] OF [place] RBC (Bld) [#/Vol] 4.02 10*6/uL Normal 3.90-5.20 [facility] Comment on above: Order Comment: Speci men Type: BLOOD SPECIMENOrdering Facility: [facility] Address: [address] [place] [address] Performed By: #### 5 8410-2 ####CERV[facility] LABORATORYCLIA [id number] [address] WBC (Bld) [#/Vol] 5.70 10*3/uL Normal 3.70-11.00 [facility] Comment on above: Order Comment: Speci men Type: BLOOD SPECIMENOrdering Facility: [facility] Address: [address] [place] [address] Performed By: #### 5 8410-2 ####CERV[facility] LABORATORYCLIA [id number] [address] Comprehensive metabolic 2000 panelon 09-20-2024 Albumin [Mass/Vol] 3.1 g/dL Low 3.9-4.9 [facility] Comment on above: Order Comment: Speci men Type: BLOOD SPECIMENOrdering Facility: [facility] Address: [address] [place] [address] Performed By: #### 2 4323-8, 53210-2 ####CERV[facility] LABORATORYCLIA [id number] [address] ALP [Catalytic activity/Vol] 41 U/L Normal 34-123 [facility] Comment on above: Order Comment: Speci men Type: BLOOD SPECIMENOrdering Facility: [facility] Address: [address] [place] [address] Performed By: #### 2 4323-8, ####[facility] LABORATORYCLIA [id number] [place] [address] [place] ALT [Catalytic activity/Vol] 7 U/L Normal 7-38 [facility] Comment on above: Order Comment: Speci men Type: BLOOD SPECIMENOrdering Facility: [facility] Address: [address] [place] [address] Performed By: #### 2 4323-8, ####[facility] LABORATORYCLIA [id number] [place] [address] [place] Anion gap [Moles/Vol] 7 mmol/L Low 8-15 [facility] Comment on above: Order Comment: Speci men Type: BLOOD SPECIMENOrdering Facility: [facility] Address: [address] [place] [address] Performed By: #### 2 432-8, ####[facility] LABORATORYCLIA [id number] [address] AST [Catalytic activity/Vol] 16 U/L Normal 13-35 [facility] Comment on above: Order Comment: Speci men Type: BLOOD SPECIMENOrdering Facility: [facility] Address: [address] [place] [address] Performed By: #### 2 4322-8, ####[facility] LABORATORYCLIA [id number] [address] [place] Bilirubin [Mass/Vol] 0.4 mg/dL Normal 0.2-1.3 [facility] Comment on above: Order Comment: Speci men Type: BLOOD SPECIMENOrdering Facility: [facility] Address: [address] [place] [address] Performed By: #### 2 4323-8, ####[facility] LABORATORYCLIA [id number] [address] Calcium [Mass/Vol] 8.9 mg/dL Normal 8.5-10.2 [facility] Comment on above: Order Comment: Speci men Type: BLOOD SPECIMENOrdering Facility: [facility] Address: [address] [place] [address] Performed By: #### 2 4323-8, ####C[facility] LABORATORYCLIA [id number] [place] [address] [place] Chloride [Moles/Vol] 102 mmol/L Normal 98-107 [facility] Comment on above: Order Comment: Suzanne garcia Type: BLOOD SPECIMENOrdering Facility: [facility] Address: [address] [place] [address] Performed By: #### 2 4323-8, ####C[facility] LABORATORYCLIA [id number] [place] [id number] [place] CO2 [Moles/Vol] 29 mmol/L Normal 22-30 [facility] Comment on above: Order Comment: Suzanne garcia Type: BLOOD SPECIMENOrdering Facility: [facility] Address: [address] [place] [address] Performed By: #### 2 4323-8, ####CERV[facility] LABORATORYCLIA [id number] [place] [id number] [place] Creatinine [Mass/Vol] 0.82 mg/dL Normal 0.58-0.96 [facility] Comment on above: Order Comment: Suzanne garcia Type: BLOOD SPECIMENOrdering Facility: [facility] Address: [address] [place] [address] Performed By: #### 2 4323-8, ####C[facility] LABORATORYCLIA [id number] [address] Creatinine and Glomerular filtration rate.predicted panel (S/P/Bld) 76 mL/min/1.73m??? Normal >=60 [facility] Comment on above: Order Comment: Suzanne garcia Type: BLOOD SPECIMENOrdering Facility: [facility] Address: [address] [place] [address] Result Comment: Winifred mated Glomerular Filtration Rate [...] reflect actual GFR. Performed By: #### 2 4328, ####CERVANTES LABORATORYCLIA [id number] [place] [id number] [place] Glucose [Mass/Vol] 134 mg/dL High 74-99 [facility] Comment on above: Order Comment: Suzanne garcia Type: BLOOD SPECIMENOrdering Facility: [facility] Address: [address] [place] [address] Result Comment: The [place] [employer] (ADA) provides guidance for cutoff [...] Standards of Medical Care in Diabetes 2016, [place] [employer]. Diabetes Care. 2016.39(Suppl 1). Performed By: #### 2 43208-27, ####CERVANTES LABORATORYCLIA [id number] [place] [address] [place] Potassium [Moles/Vol] 4.7 mmol/L Normal 3.7-5.1 [facility] Comment on above: Order Comment: Suzanne garcia Type: BLOOD SPECIMENOrdering Facility: [facility] Address: [address] [place] [address] Performed By: #### 2 43208-27, ####CERV[facility]ES LABORATORYCLIA [id number] [place] [address] [place] Protein [Mass/Vol] 5.9 g/dL Low 6.3-8.0 [facility] Comment on above: Order Comment: Suzanne garcia Type: BLOOD SPECIMENOrdering Facility: [facility] Address: [address] [place], [place] [address] Performed By: #### 2 43208-27, ####CERVANTES LABORATORYCLIA [id number] [place] [address] [place] Sodium [Moles/Vol] 138 mmol/L Normal 136-144 [facility] Comment on above: Order Comment: Suzanne garcia Type: BLOOD SPECIMENOrdering Facility: [facility] Address: [address] [place] [address] Performed By: #### 2 4323-8, 59307-0 ####CERVANTES LABORATORYCLIA [id number] [place] [id number] [place] Urea nitrogen [Mass/Vol] 11 mg/dL Normal 7-21 [facility] Comment on above: Order Comment: Suzanne garcia Type: BLOOD SPECIMENOrdering Facility: [facility] Address: [address] [place] [address] Performed By: #### 2 4323-8, 85964-6 ####CERVANTES LABORATORYCLIA [id number] [place] [address] [place] Magnesium SerPl-mCncon 09-20 Magnesium [Mass/Vol] 1.9 mg/dL Normal 1.7-2.3 [facility] Comment on above: Order Comment: Suzanne garcia Type: BLOOD SPECIMENOrdering Facility: [facility] Address: [address] [place] [address] Performed By: #### 2 4323-8, 15302-9 ####CERVANTES LABORATORYCLIA [id number] [place] [id number] [place] PT panel Coag (PPP)on 2024 INR Coag (PPP) [Relative time] 1.6 {INR} High 0.9-1.3 [facility] Comment on above: Order Comment: Suzanne garcia Type: BLOOD SPECIMENOrdering Facility: [facility] Address: [address] [place] [address] Result Comment: Kaycee min K Antagonist (VKA) Therapeutic Range: INR 2 to 3 (Target INR of 2.5) Note: For patients treated with VKA drugs, such as warfarin, the [place] [employer] 2012 Guideline recommends [...] Chest 2012, 141:7S-47S Roshni RA, et al. [facility] 2017, 70: 252-289 Performed By: #### 3 4528-0 ####[facility] [place] LABORATORYCLIA [id number] [address] [place] PT Coag (PPP) [Time] 16.7 s High 9.7-13.0 [facility] Comment on above: Order Comment: Speci men Type: BLOOD SPECIMENOrdering Facility: [facility] Address: [address] [place] [address] Performed By: #### 3 4528-0 ####[facility] [place] LABORATORYCLIA [id number] [address] [place] THERAPY NTon 09-20-2024 THERAPY NT HNO ID: [id number] Author: CHRISTIANO MAYEN OT/L Service: ? Author Type: Occupational Therapist Type: Therapy (PT/OT/Speech/Resp) Filed: 09/20/2024 11:14 Note Text: Summary: OT Evaluation Occupational Therapy Evaluation Summary SERVICE DATE: 09/20/2024 SERVICE TIME: 1031 to 1106 ROOM: [id number]-[id number] OT 6 Clicks Score: 14 DISCHARGE RECOMMENDATIONS [...] is struggling to ambulate. Patient admitted to [facility] with Dx: Decreased activities of daily living (ADL), Fall at home, initial encounter Relevant Past Medical History: DM, edema, depression,asthma, obesity, irsutism, venous insufficiency, oseteomyeliitis of foot, SLE, cerebral palsy, pulmonary embolism, hypothyroidism, insomnai, CAD, migraines, HTN, hysterectomy HOME LIVING Patient Lives With: Facility Care, Spouse, Other: See Comment Comments: [place] with spouse Assistance Available: 24-Hour Comments: HALFWAY staff for toileting and shower Entry To Home: No Stairs Number Of Stairs To Bed/Bath: 0 Tub/Shower Type: Accessible WIS with shower chair + grab bars, has assistance/supervision for transfers Laundry: HALFWAY staff completes Equipment Owned: Lift Chair, Commode- [...] Unsteadiness on feet TREATMENT INTERVENTIONS Evaluation, Self Prison Management (43530) Timed Code Treatment (minutes): 17 Skilled Treatment Time (minutes): 32 TRAINING AND EDUCATION PROVIDED Activity Adaptation/Compensatory Strategies, Adaptive Equipment/DME, Bed Mobility, Benefits of In-Hospital Mobility, Cognitive Skills, Command Following, Coping Skills/Resiliency, Discharge Planning, Expected Functional Level, Functional Mobility Involving ADLs, Insight into Deficits, Lower Extremity Dressing, Memory/Attention, Orientation, Positioning, Pain Management, Safety/Judgment, Role of Occupational Therapy, Sitting Balance to Improve Maple with ADLs/Self-Care, Standing Balance to Improve Maple with ADLs/Self-Care, Toileting , Transfer - Sit to Stand THERAPEUTIC SKILLS USED Activity Dosing, Cues for Sequencing/Proper Technique for Activity, Cuing Tactile, Cuing Verbal, Cuing Visual, Facilitation of Joint Range of Motion, Movement Facilitation, Muscle Activation Facilitation, Physical Assist, Teach-Back for Ed (more content not included)... Normal [facility] CBC panel Auto (Bld)on 09-19 Erythrocyte distribution width (RBC) [Ratio] 13.2 % Normal 11.5-15.0 [facility] Comment on above: Order Comment: Speci men Type: BLOOD SPECIMENOrdering Facility: [facility] Address: [address] [place] [address] Performed By: #### 5 8410-2 ####CERV[facility] LABORATORYCLIA [id number] [address] Hematocrit (Bld) [Volume fraction] 33.3 % Low 36.0-46.0 [facility] Comment on above: Order Comment: Speci men Type: BLOOD SPECIMENOrdering Facility: [facility] Address: [address] [place] [address] Performed By: #### 5 8410-2 ####[facility] LABORATORYCLIA [id number] [address] Hemoglobin (Bld) [Mass/Vol] 11.0 g/dL Low 11.5-15.5 [facility] Comment on above: Order Comment: Speci men Type: BLOOD SPECIMENOrdering Facility: [facility] Address: [address] [place] [address] Performed By: #### 5 8410-2 ####[facility] LABORATORYCLIA [id number] [address] MCH (RBC) [Entitic mass] 30.4 pg Normal 26.0-34.0 [facility] Comment on above: Order Comment: Speci men Type: BLOOD SPECIMENOrdering Facility: [facility] Address: [address] [place] [address] Performed By: #### 5 8410-2 ####[facility] LABORATORYCLIA [id number] [address] MCHC (RBC) [Mass/Vol] 33.0 g/dL Normal 30.5-36.0 [facility] Comment on above: Order Comment: Speci men Type: BLOOD SPECIMENOrdering Facility: [facility] Address: [address] [place] [address] Performed By: #### 5 8410-2 ####[facility] LABORATORYCLIA [id number] [address] MCV (RBC) [Entitic vol] 92.0 fL Normal 80.0-100.0 [facility] Comment on above: Order Comment: Speci men Type: BLOOD SPECIMENOrdering Facility: [facility] Address: [address] [place] [address] Performed By: #### 5 8410-2 ####[facility] LABORATORYCLIA [id number] [place] [id number] [place] Nucleated RBC (Bld) [#/Vol] 10*3/uL Normal <0.01 [facility] Comment on above: Order Comment: Speci men Type: BLOOD SPECIMENOrdering Facility: [facility] Address: [address] [place] [address] Performed By: #### 5 8410-2 ####CERV[facility] LABORATORYCLIA [id number] [place] [address] [place] Platelet mean volume (Bld) [Entitic vol] 10.2 fL Normal 9.0-12.7 [facility] Comment on above: Order Comment: Speci men Type: BLOOD SPECIMENOrdering Facility: [facility] Address: [address] [place] [address] Performed By: #### 5 8410-2 ####C[facility] LABORATORYCLIA [id number] [address] [place] Platelets (Bld) [#/Vol] 158 10*3/uL Normal 150-400 [facility] Comment on above: Order Comment: Speci men Type: BLOOD SPECIMENOrdering Facility: [facility] Address: [address] [place] [address] Performed By: #### 5 8410-2 ####CERV[facility] LABORATORYCLIA [id number] [place] [address] [place] RBC (Bld) [#/Vol] 3.62 10*6/uL Low 3.90-5.20 [facility] Comment on above: Order Comment: Speci men Type: BLOOD SPECIMENOrdering Facility: [facility] Address: [address] [place] [address] Performed By: #### 5 8410-2 ####[facility] LABORATORYCLIA [id number] [address] [place] WBC (Bld) [#/Vol] 7.29 10*3/uL Normal 3.70-11.00 [facility] Comment on above: Order Comment: Speci men Type: BLOOD SPECIMENOrdering Facility: [facility] Address: [address] [place] [address] [place] [address] Performed By: #### 5 8410-2 ####CERV[facility] LABORATORYCLIA [id number] [place] [address] [place] [facility] Comprehensive metabolic 2000 panelon 09-19-2024 Albumin [Mass/Vol] 2.7 g/dL Low 3.9-4.9 [facility] Comment on above: Order Comment: Speci men Type: BLOOD SPECIMENOrdering Facility: [facility] Address: [address] [place] [address] Performed By: #### 2 4323-8, ####CERV[facility] LABORATORYCLIA [id number] [place] [address] [place] ALP [Catalytic activity/Vol] 36 U/L Normal 34-123 [facility] Comment on above: Order Comment: Speci men Type: BLOOD SPECIMENOrdering Facility: [facility] Address: [address] [place] [address] Performed By: #### 2 4323-8, ####CERV[facility] LABORATORYCLIA [id number] [address] STATES [facility] ALT [Catalytic activity/Vol] 6 U/L Low 7-38 [facility] Comment on above: Order Comment: Speci men Type: BLOOD SPECIMENOrdering Facility: [facility] Address: [address] [place] [address] Performed By: #### 2 4323-8, ####CERV[facility] LABORATORYCLIA [id number] [place] [id number] [place] [facility] Anion gap [Moles/Vol] 13 mmol/L Normal 8-15 [facility] Comment on above: Order Comment: Speci men Type: BLOOD SPECIMENOrdering Facility: [facility] Address: [address] [place] [address] Performed By: #### 2 4323-8, ####C[facility] LABORATORYCLIA [id number] [place] [id number] [place] AST [Catalytic activity/Vol] 19 U/L Normal 13-35 [facility] Comment on above: Order Comment: Speci men Type: BLOOD SPECIMENOrdering Facility: [facility] Address: [address] [place] [address] Performed By: #### 2 432-8, ####CERV[facility] LABORATORYCLIA [id number] [place] [address] [place] Bilirubin [Mass/Vol] 0.5 mg/dL Normal 0.2-1.3 [facility] Comment on above: Order Comment: Speci men Type: BLOOD SPECIMENOrdering Facility: [facility] Address: [address] [place] [address] Performed By: #### 2 4328, ####C[facility] LABORATORYCLIA [id number] [place] [address] [place] Calcium [Mass/Vol] 8.6 mg/dL Normal 8.5-10.2 [facility] Comment on above: Order Comment: Speci men Type: BLOOD SPECIMENOrdering Facility: [facility] Address: [address] [place] [address] Performed By: #### 2 4322-8, ####[facility] LABORATORYCLIA [id number] [place] [address] [place] Chloride [Moles/Vol] 103 mmol/L Normal 98-107 [facility] Comment on above: Order Comment: Speci men Type: BLOOD SPECIMENOrdering Facility: [facility] Address: [address] [place] [address] Performed By: #### 2 432-8, ####[facility] LABORATORYCLIA [id number] [place] [id number] [place] CO2 [Moles/Vol] 24 mmol/L Normal 22-30 [facility] Comment on above: Order Comment: Speci men Type: BLOOD SPECIMENOrdering Facility: [facility] Address: [address] [place] [address] Performed By: #### 2 4323-8, ####[facility] LABORATORYCLIA [id number] [place] [id number] [place] Creatinine [Mass/Vol] 0.76 mg/dL Normal 0.58-0.96 [facility] Comment on above: Order Comment: Suzanne garcia Type: BLOOD SPECIMENOrdering Facility: [facility] Address: [address] [place] [address] [place] [address] Performed By: #### 2 4323-8, ####CERV[facility] LABORATORYCLIA [id number] [place] [address] [place] Creatinine and Glomerular filtration rate.predicted panel (S/P/Bld) 83 mL/min/1.73m??? Normal >=60 [facility] Comment on above: Order Comment: Suzanne garcia Type: BLOOD SPECIMENOrdering Facility: [facility] Address: [address] [place] [address] Result Comment: Winifred mated Glomerular Filtration Rate [...] Performed By: #### 2 4323-8, ####C[facility] LABORATORYCLIA [id number] [place] [id number] [place] Glucose [Mass/Vol] 106 mg/dL High 74-99 [facility] Comment on above: Order Comment: Suzanne garcia Type: BLOOD SPECIMENOrdering Facility: [facility] Address: [address] [place] [address] Result Comment: The [place] [employer] (ADA) provides guidance for cutoff [...] Standards of Medical Care in Diabetes 2016, [place] [employer]. Diabetes Care. 2016.39(Suppl 1). Performed By: #### 2 432-8, ####[facility] LABORATORYCLIA [id number] [place] [address] [place] Potassium [Moles/Vol] 4.7 mmol/L Normal 3.7-5.1 [facility] Comment on above: Order Comment: Speci men Type: BLOOD SPECIMENOrdering Facility: [facility] Address: [address] [place] [address] Performed By: #### 2 8, ####[facility] LABORATORYCLIA [id number] [place] [address] [place] Protein [Mass/Vol] 5.3 g/dL Low 6.3-8.0 [facility] Comment on above: Order Comment: Speci men Type: BLOOD SPECIMENOrdering Facility: [facility] Address: [address] [place] [address] Performed By: #### 2 4323-01, ####[facility] LABORATORYCLIA [id number] [place] [address] [place] Sodium [Moles/Vol] 140 mmol/L Normal 136-144 [facility] Comment on above: Order Comment: Speci men Type: BLOOD SPECIMENOrdering Facility: [facility] Address: [address] [place] [address] Performed By: #### 2 4323-01, ####[facility] LABORATORYCLIA [id number] [place] [address] [place] Urea nitrogen [Mass/Vol] 10 mg/dL Normal 7-21 [facility] Comment on above: Order Comment: Speci men Type: BLOOD SPECIMENOrdering Facility: [facility] Address: [address] [place] [address] Performed By: #### 2 43208-27, ####[facility] LABORATORYCLIA [id number] [place] [address] [place] HISTORY PHYSICALon 5 HISTORY PHYSICAL HNO ID: [id number] Author: ARNOL LIN PA-C Service: Hospital Medicine Author Type: Physician Barrel Filler Head Type: H&P Filed: 09/19/2024 01:01 Note Text: Attestation signed by Mable Barker DO at 09/27/2024 10:43 PM Attending Note I have not personally performed a face to face assessment of the patient. I have reviewed the [facility] note. Signature: Mable Barker Date: 09/27/2024 Time: 10:43 PM [facility] MEDICINE HISTORY AND PHYSICAL EXAM SERVICE DATE: 09/19/2024 SERVICE TIME: 12:25 AM Primary Care Physician: Raf Casey MD, MD NIGHT AND WEEKEND COVERAGE: [place] COVERAGE: Days: [phone], please page attending physician. Nights: [phone], please page [facility] Night coverage pager [phone]. Subjective CHIEF COMPLAINT: Fall, left knee pain [...] changes, peripheral edema, paresthesia or focal weaknesses. [facility] ED Course: HDS, afebrile. Labs unremarkable. Imaging [...] embolism (HCC) 2011 SLE (systemic lupus erythematosus) ([facility]) Type II or unspecified type diabetes mellitus [...] HYDROcodone-loyda (more content not included)... Normal [facility] Magnesium SerPl-mCncon 09-19 Magnesium [Mass/Vol] 1.8 mg/dL Normal 1.7-2.3 [facility] Comment on above: Order Comment: Speci men Type: BLOOD SPECIMENOrdering Facility: [facility] Address: [address] [place] [address] Performed By: #### 2 4323-8, 18123-4 ####[place] [place] LABORATORYCLIA [id number] [address] OF [facility] NUTRITIONon 09-19-2024 NUTRITION HNO ID: [id number] Author: DEVYN KAHN RD Service: Nutrition Therapy [...] Greater than 75% estimated energy needs (Drinks [place] Instant Breakfast and either Premier or Melton [...] to trial Ensure Max. Pt to order [place] Instant Breakfast. Diet Orders (From admission, onward) [...] Drain Duration External Collection Device 09/18/24 2332 [facility] <1 day MNT Billing: $ Initial Assessment: 1-15 minutes SIGNATURE: Devyn Kahn RD PATIENT NAME: Randolph Hunter DATE: September 19, 2024 TIME: 1:12 PM Normal [facility] PT panel Coag (PPP)on 2024 INR Coag (PPP) [Relative time] 1.7 {INR} High 0.9-1.3 [facility] Comment on above: Order Comment: Speci men Type: BLOOD SPECIMENOrdering Facility: [facility] Address: [address] [place], [place] [address] Result Comment: Kaycee min K Antagonist (VKA) Therapeutic Range: INR 2 to 3 (Target INR of 2.5) Note: For patients treated with VKA drugs, such as warfarin, the [place] [employer] 2012 Guideline recommends [...] 70: 252-289 Performed By: #### 3 4528-0 ####[facility] [place] LABORATORYCLIA [id number] [place] [address] [place] PT Coag (PPP) [Time] 17.9 s High 9.7-13.0 [facility] Comment on above: Order Comment: Speci men Type: BLOOD SPECIMENOrdering Facility: [facility] Address: [facility] [place] [address] Performed By: #### 3 4528-0 ####[place] [place] LABORATORYCLIA [id number] [place] [address] [facility] THERAPY NTon 09-19-2024 THERAPY NT HNO ID: [id number] Author: ESTELLE CAGE PT Service: Physical Therapy Author Type: Physical Therapist Type: Therapy (PT/OT/Speech/Resp) Filed: 09/19/2024 17:41 Note Text: Summary: PT evaluation Physical Therapy Evaluation Summary SERVICE DATE: 09/19/2024 SERVICE TIME: 1545 to 1629 ROOM: [place] [address] PT 6 Clicks Score: 12 DISCHARGE RECOMMENDATIONS [...] time. Leg Injury . Patient admitted to [facility] with Dx: Decreased activities of daily living (ADL), Fall at home, initial encounter Relevant Past Medical History: DM, edema, depression,asthma, obesity, irsutism, venous insufficiency, oseteomyeliitis of foot, SLE, cerebral palsy, pulmonary embolism, hypothyroidism, insomnai, CAD, migraines, HTN, hysterectomy HOME LIVING Patient Lives With: Spouse Assistance Available: 24-Hour, Other: See Comment Comments: HALFWAY staff for toileting and shower Entry To [...] Reduced mobility-other TREATMENT INTERVENTIONS Evaluation, Therapeutic Activity (73077) Timed Code Treatment (minutes): 25 Skilled Treatment Time (minutes): 44 $ Evaluation-Low (71269) Billed Units: 1 unit Therapeutic Activity (91476) Treatment Minutes: 25 $ Therapeutic Activity (98941) Billed Units: 2 units Range of Motion: [...] Sit to Supi (more content not included)... [facility] THERAPY NT HNO ID: [id number] Author: ESTELLE CAGE PT Service: Physical Therapy Author Type: Physical Therapist Type: Therapy (PT/OT/Speech/Resp) Filed: 09/19/2024 11:07 Note Text: Summary: PT missed visit PHYSICAL THERAPY MISSED VISIT SERVICE DATE: 09/19/2024 SERVICE TIME: 1105 ROOM: TN-[id number]- Patient not seen due to Patient Not Available. Discussed patient with RN and patient in the process of transferring to . Will approach as patient is available/appropriate. SIGNATURE: Estelle Cage PT PATIENT NAME: Randolph Hunter DATE: September 19, 2024 TIME: 11:06 AM Normal [facility] URINALYSIS, REFLEX MICROSCOP ICon 09-19-2024 Bilirubin Ql (U) Negative Normal Negative [facility] Comment on above: Order Comment: Speci men Type: URINE SPECIMENOrdering Facility: [facility] Address: [address] [place] [address] Performed By: #### L EC7895 ####[facility] LABORATORYCLIA [id number] [address] Clarity (Unsp spec) Clear Normal Clear [facility] Comment on above: Order Comment: Speci men Type: URINE SPECIMENOrdering Facility: [facility] Address: [address] [place] [address] Performed By: #### L [id number] ####[facility] LABORATORYCLIA [id number] [address] Color (U) Yellow Normal Yellow [facility] Comment on above: Order Comment: Speci men Type: URINE SPECIMENOrdering Facility: [facility] Address: [address] [place] [address] Performed By: #### L [id number] ####[facility] LABORATORYCLIA [id number] [address] Glucose Test strip (U) [Mass/Vol] Negative Normal Negative [facility] Comment on above: Order Comment: Speci men Type: URINE SPECIMENOrdering Facility: [facility] Address: [address] [place] [address] Performed By: #### L [id number] ####[facility] LABORATORYCLIA [id number] [address] [place] [facility] Hemoglobin Ql (U) Negative Normal Negative [facility] Comment on above: Order Comment: Speci men Type: URINE SPECIMENOrdering Facility: [facility] Address: [address] [place] [address] Performed By: #### L [id number] ####[facility] LABORATORYCLIA [id number] [place] [address] [place] Ketones Ql (U) Negative Normal Negative [facility] Comment on above: Order Comment: Speci men Type: URINE SPECIMENOrdering Facility: [facility] Address: [address] [place] [address] Performed By: #### L [id number] ####[facility] LABORATORYCLIA [id number] [place] [address] [place] Leukocyte esterase Test strip Ql (U) Negative Normal Negative [facility] Comment on above: Order Comment: Speci men Type: URINE SPECIMENOrdering Facility: [facility] Address: [address] [place] [address] Performed By: #### L [id number] ####[facility] LABORATORYCLIA [id number] [address] [place] Nitrite Ql (U) Negative Normal Negative [facility] Comment on above: Order Comment: Speci men Type: URINE SPECIMENOrdering Facility: [facility] Address: [address] [place] [address] Performed By: #### L [id number] ####[facility] LABORATORYCLIA [id number] [place] [address] [place] pH (U) 7.0 [pH] Normal 5.0-8.0 [facility] Comment on above: Order Comment: Speci men Type: URINE SPECIMENOrdering Facility: [facility] Address: [address] [place] [address] Performed By: #### L [id number] ####CERV[facility] LABORATORYCLIA [id number] [place] [address] [place] Protein (U) [Mass/Vol] Negative Normal Negative [facility] Comment on above: Order Comment: Speci men Type: URINE SPECIMENOrdering Facility: [facility] Address: [address] [place] [address] Performed By: #### L [id number] ####[facility] LABORATORYCLIA [id number] [place] [address] [place] Specific gravity (U) [Rel density] 1.010 Normal 1.005-1.03 0 [facility] Comment on above: Order Comment: Speci men Type: URINE SPECIMENOrdering Facility: [facility] Address: [address] [place], [place] [address] Performed By: #### L [id number] ####[facility] LABORATORYCLIA [id number] [address] Urobilinogen Ql (U) 0.2 EU/dL Normal 0.2-1.0 EU/dL [facility] Comment on above: Order Comment: Speci men Type: URINE SPECIMENOrdering Facility: [facility] Address: [address] [place] [address] Performed By: #### L [id number] ####[facility] LABORATORYCLIA [id number] [address] ALLIED HEALTHon 09-18-2024 ALLIED HEALTH HNO ID: [id number] Author: OSVALDO BRUCE RT(R) Service: Radiology Author Type: [facility] Manager Type: Allied Health Filed: 09/18/2024 23:10 Note [...] PATIENT PRESENTS WITH AN IMPLANTABLE OR ATTACHED DEVICE PROCESSING ENGINEER: No RADIOLOGY DEPARTMENT: General X-ray: Exam(s) Completed: Pelvis X-Ray: Pelvis with Hip Left Lower Extremity X-Ray(s): Ankle, Left PERIPHERAL IV DATA: Not applicable SIGNED BY: RT Lissett(R) September 18, 2024 11:09 PM Normal [facility] ALLIED HEALTH HNO ID: [id number] Author: MONTSERRAT CUEVAS RT(R) Service: Radiology Author [...] PATIENT PRESENTS WITH AN IMPLANTABLE OR ATTACHED DEVICE PROCESSING ENGINEER: No RADIOLOGY DEPARTMENT: General X-ray: Exam(s) Completed: Lower Extremity X-Ray(s): Knee, AP / LAT Left PERIPHERAL IV DATA: Not applicable SIGNED BY: RT Geeta(R) September 18, 2024 10:31 AM Normal [facility] CBC W Auto Differential pane l (Bld)on 09-18-2024 Basophils (Bld) [#/Vol] 10*3/uL Normal <0.11 [facility] Comment on above: Order Comment: Speci men Type: BLOOD SPECIMENOrdering Facility: [facility] Address: [address] [place] [address] Performed By: #### 5 7021-8 ####[facility] LABORATORYCLIA [id number] [place] [address] [place] Basophils/100 WBC (Bld) 0.3 % Normal [facility] Comment on above: Order Comment: Speci men Type: BLOOD SPECIMENOrdering Facility: [facility] Address: [address] [place] [address] Performed By: #### 5 7021-8 ####[facility] LABORATORYCLIA [id number] [place] [address] [place] Differential cell count method Nom (Bld) Auto Normal [facility] Comment on above: Order Comment: Speci men Type: BLOOD SPECIMENOrdering Facility: [facility] Address: [address] [place] [address] Performed By: #### 5 7021-8 ####[facility] LABORATORYCLIA [id number] [place] [address] [place] [facility] [place] Eosinophils (Bld) [#/Vol] 0.16 10*3/uL Normal <0.46 [facility] Comment on above: Order Comment: Speci men Type: BLOOD SPECIMENOrdering Facility: [facility] Address: [address] [place] [address] Performed By: #### 5 7021-8 ####[facility] LABORATORYCLIA [id number] [address] OF [place] Eosinophils/100 WBC (Bld) 2.1 % Normal [facility] Comment on above: Order Comment: Speci men Type: BLOOD SPECIMENOrdering Facility: [facility] Address: [address] [place] [address] Performed By: #### 5 7021-8 ####[facility] LABORATORYCLIA [id number] [address] [place] [facility] Erythrocyte distribution width (RBC) [Ratio] 13.3 % Normal 11.5-15.0 [facility] Comment on above: Order Comment: Speci men Type: BLOOD SPECIMENOrdering Facility: [facility] Address: [address] [place] [address] Performed By: #### 5 7021-8 ####[facility] LABORATORYCLIA [id number] [address] Hematocrit (Bld) [Volume fraction] 37.2 % Normal 36.0-46.0 [facility] Comment on above: Order Comment: Speci men Type: BLOOD SPECIMENOrdering Facility: [facility] Address: [address] [place] [address] Performed By: #### 5 7021-8 ####[facility] LABORATORYCLIA [id number] [address] [place] Hemoglobin (Bld) [Mass/Vol] 12.6 g/dL Normal 11.5-15.5 [facility] Comment on above: Order Comment: Speci men Type: BLOOD SPECIMENOrdering Facility: [facility] Address: [address] [place] [address] Performed By: #### 5 7021-8 ####[facility] LABORATORYCLIA [id number] [place] [address] [place] Immature granulocytes (Bld) [#/Vol] 10*3/uL Normal <0.10 [facility] Comment on above: Order Comment: Speci men Type: BLOOD SPECIMENOrdering Facility: [facility] Address: [address] [place] [address] Performed By: #### 5 7021-8 ####[facility] LABORATORYCLIA [id number] [place] [address] [place] Immature granulocytes/100 WBC (Bld) 0.3 % Normal [facility] Comment on above: Order Comment: Speci men Type: BLOOD SPECIMENOrdering Facility: [facility] Address: [address] [place] [address] Performed By: #### 5 7021-8 ####[facility] LABORATORYCLIA [id number] [place] [address] [place] Lymphocytes (Bld) [#/Vol] 1.71 10*3/uL Normal 1.00-4.00 [facility] Comment on above: Order Comment: Speci men Type: BLOOD SPECIMENOrdering Facility: [facility] Address: [address] [place] [address] Performed By: #### 5 7021-8 ####[facility] LABORATORYCLIA [id number] [address] [place] Lymphocytes/100 WBC (Bld) 22.4 % Normal [facility] Comment on above: Order Comment: Speci men Type: BLOOD SPECIMENOrdering Facility: [facility] Address: [address] [place] [address] Performed By: #### 5 7021-8 ####[facility] LABORATORYCLIA [id number] [place] [address] [place] MCH (RBC) [Entitic mass] 30.8 pg Normal 26.0-34.0 [facility] Comment on above: Order Comment: Speci men Type: BLOOD SPECIMENOrdering Facility: [facility] Address: [address] [place] [address] Performed By: #### 5 7021-8 ####[facility] LABORATORYCLIA [id number] [place] [address] [place] MCHC (RBC) [Mass/Vol] 33.9 g/dL Normal 30.5-36.0 [facility] Comment on above: Order Comment: Speci men Type: BLOOD SPECIMENOrdering Facility: [facility] Address: [address] [place] [address] Performed By: #### 5 7021-8 ####[facility] LABORATORYCLIA [id number] [place] [address] [place] MCV (RBC) [Entitic vol] 91.0 fL Normal 80.0-100.0 [facility] Comment on above: Order Comment: Speci men Type: BLOOD SPECIMENOrdering Facility: [facility] Address: [address] [place] [address] Performed By: #### 5 7021-8 ####[facility] LABORATORYCLIA [id number] [place] [address] [place] Monocytes (Bld) [#/Vol] 0.54 10*3/uL Normal <0.87 [facility] Comment on above: Order Comment: Speci men Type: BLOOD SPECIMENOrdering Facility: [facility] Address: [address] [place] [address] Performed By: #### 5 7021-8 ####[facility] LABORATORYCLIA [id number] [address] [place] Monocytes/100 WBC (Bld) 7.1 % Normal [facility] Comment on above: Order Comment: Speci men Type: BLOOD SPECIMENOrdering Facility: [facility] Address: [address] [place] [address] Performed By: #### 5 7021-8 ####[facility] LABORATORYCLIA [id number] [place] [address] [place] Neutrophils (Bld) [#/Vol] 5.18 10*3/uL Normal 1.45-7.50 [facility] Comment on above: Order Comment: Speci men Type: BLOOD SPECIMENOrdering Facility: [facility] Address: [address] [place] [address] Performed By: #### 5 7021-8 ####[facility] LABORATORYCLIA [id number] [address] Neutrophils/100 WBC (Bld) 67.8 % Normal [facility] Comment on above: Order Comment: Speci men Type: BLOOD SPECIMENOrdering Facility: [facility] Address: [address] [place] [address] Performed By: #### 5 7021-8 ####[facility] LABORATORYCLIA [id number] [place] [address] [place] Nucleated RBC (Bld) [#/Vol] 10*3/uL Normal <0.01 [facility] Comment on above: Order Comment: Speci men Type: BLOOD SPECIMENOrdering Facility: [facility] Address: [address] [place] [address] Performed By: #### 5 7021-8 ####[facility] LABORATORYCLIA [id number] [address] [place] Nucleated RBC/100 WBC (Bld) [Ratio] 0.0 /100 WBC Normal [facility] Comment on above: Order Comment: Speci men Type: BLOOD SPECIMENOrdering Facility: [facility] Address: [address] [place] [address] Performed By: #### 5 7021-8 ####[facility] LABORATORYCLIA [id number] [place] [address] [place] Platelet mean volume (Bld) [Entitic vol] 10.0 fL Normal 9.0-12.7 [facility] Comment on above: Order Comment: Speci men Type: BLOOD SPECIMENOrdering Facility: [facility] Address: [address] [place] [address] Performed By: #### 5 7021-8 ####[facility] LABORATORYCLIA [id number] [place] [address] [place] Platelets (Bld) [#/Vol] 176 10*3/uL Normal 150-400 [facility] Comment on above: Order Comment: Speci men Type: BLOOD SPECIMENOrdering Facility: [facility] Address: [address] [place] [address] Performed By: #### 5 7021-8 ####[facility] LABORATORYCLIA [id number] [address] RBC (Bld) [#/Vol] 4.09 10*6/uL Normal 3.90-5.20 [facility] Comment on above: Order Comment: Speci men Type: BLOOD SPECIMENOrdering Facility: [facility] Address: [address] [place] [address] Performed By: #### 5 7021-8 ####[facility] LABORATORYCLIA [id number] [address] WBC (Bld) [#/Vol] 7.63 10*3/uL Normal 3.70-11.00 [facility] Comment on above: Order Comment: Speci men Type: BLOOD SPECIMENOrdering Facility: [facility] Address: [address] [place] [address] Performed By: #### 5 7021-8 ####[facility] LABORATORYCLIA [id number] [address] CNPVeronica 09-18-2024 CNPN Telephone (CATHLEENNA) RANDOLPH HUNTER ([id number]) 1950 F Date Time Provider Department 09/18/24 RAF CASEY During your visit today, we recorded the following information about you: Kevin Jain 09/18/2024 11:34 AM Signed Patient seen in [facility] on 09/18/2024 in regards to left knee pain Dr. Soares is the provider color consultant Would or another provider be willing to see patient in regards to their injury? Patient can be reached at [phone] Thank You! Allergies As of Date: 09/18/2024 [...] " Dioxicillin" PROMETHAZINE 05/26/2019 16 - Unknown [id number] REDUCTASE INHIBIT*07/08/2018 17 - Myalgia DELETED: CHEESE 03/09/2022 6 - Diarrhea 8 - GI Upset Comments: Parmesan cheese and italian cheese, per patient Date Reviewed: 09/18/2024 Reviewed by: Mone King RN - Fully Assessed Reason for Visit: [...] once a month. - blood sugar diagnostic (DebtMarketUCH VERIO TEST STRIPS) test strip Test blood [...] 09/18/2024 Note (more content not included)... Normal [facility] CT KNEE WO IVCON LTon 2024 CT KNEE WO IVCON LT * * *Final Report* * * DATE OF EXAM: Sep 18 2024 10:31PM [facility] 0083 - CT KNEE WO IVCON LT [...] Small joint effusion. * Tricompartmental degenerative changes. Mineral Resources Inspector: PSCB Transcribe Date/Time: Sep 18 2024 11:34P Dictated by : STEPHANE GRIMES MD This examination was interpreted and the report reviewed and electronically signed by: STEPHANE GRIMES MD on Sep 18 2024 11:37PM EST [id number] Normal [facility] Comprehensive metabolic 2000 panelon 09-18-2024 Albumin [Mass/Vol] 3.2 g/dL Low 3.9-4.9 [facility] Comment on above: Order Comment: Speci men Type: BLOOD SPECIMENOrdering Facility: [facility] Address: [address] [place] [address] Performed By: #### 2 4323-8 ####[facility] LABORATORYCLIA [id number] [address] ALP [Catalytic activity/Vol] 42 U/L Normal 34-123 [facility] Comment on above: Order Comment: Speci men Type: BLOOD SPECIMENOrdering Facility: [facility] Address: [address] [place] [address] Performed By: #### 2 4323-8 ####[facility] LABORATORYCLIA [id number] [address] ALT [Catalytic activity/Vol] 8 U/L Normal 7-38 [facility] Comment on above: Order Comment: Speci men Type: BLOOD SPECIMENOrdering Facility: [facility] Address: [address] [place] [address] Performed By: #### 2 4323-8 ####[facility] LABORATORYCLIA [id number] [place] [address] [place] [facility] Anion gap [Moles/Vol] 10 mmol/L Normal 8-15 [facility] Comment on above: Order Comment: Speci men Type: BLOOD SPECIMENOrdering Facility: [facility] Address: [address] [place] [address] Performed By: #### 2 4323-8 ####[facility] LABORATORYCLIA [id number] [address] AST [Catalytic activity/Vol] 19 U/L Normal 13-35 [facility] Comment on above: Order Comment: Speci men Type: BLOOD SPECIMENOrdering Facility: [facility] Address: [address] [place] [address] Performed By: #### 2 4323-8 ####[facility] LABORATORYCLIA [id number] [address] [place] Bilirubin [Mass/Vol] 0.5 mg/dL Normal 0.2-1.3 [facility] Comment on above: Order Comment: Speci men Type: BLOOD SPECIMENOrdering Facility: [facility] Address: [address] [place] [address] Performed By: #### 2 4323-8 ####[facility] LABORATORYCLIA [id number] [place] [address] [place] Calcium [Mass/Vol] 9.1 mg/dL Normal 8.5-10.2 [facility] Comment on above: Order Comment: Speci men Type: BLOOD SPECIMENOrdering Facility: [facility] Address: [address] [place] [address] Performed By: #### 2 4323-8 ####[facility] LABORATORYCLIA [id number] [place] [address] [place] Chloride [Moles/Vol] 98 mmol/L Normal 98-107 [facility] Comment on above: Order Comment: Speci men Type: BLOOD SPECIMENOrdering Facility: [facility] Address: [address] [place] [address] Performed By: #### 2 4323-8 ####[facility] LABORATORYCLIA [id number] [place] [address] [place] CO2 [Moles/Vol] 28 mmol/L Normal 22-30 [facility] Comment on above: Order Comment: Speci men Type: BLOOD SPECIMENOrdering Facility: [facility] Address: [address] [place] [address] Performed By: #### 2 4323-8 ####[facility] LABORATORYCLIA [id number] [place] [address] [place] Creatinine [Mass/Vol] 0.80 mg/dL Normal 0.58-0.96 [facility] Comment on above: Order Comment: Speci men Type: BLOOD SPECIMENOrdering Facility: [facility] Address: [address] [place] [address] Performed By: #### 2 4323-8 ####C[facility] LABORATORYCLIA [id number] [place] [address] [place] Creatinine and Glomerular filtration rate.predicted panel (S/P/Bld) 78 mL/min/1.73m??? Normal >=60 [facility] Comment on above: Order Comment: Suzanne garcia Type: BLOOD SPECIMENOrdering Facility: [facility] Address: [address] [place] [address] Result Comment: Winifred mated Glomerular Filtration Rate [...] actual GFR. Performed By: #### 2 4323-8 ####[facility] [place] LABORATORYCLIA [id number] [place] [id number] [place] Glucose [Mass/Vol] 121 mg/dL High 74-99 [facility] Comment on above: Order Comment: Suzanne garcia Type: BLOOD SPECIMENOrdering Facility: [facility] Address: [address] [place] [address] Result Comment: The [place] [employer] (ADA) provides guidance for cutoff [...] Standards of Medical Care in Diabetes 2016, [place] [employer]. Diabetes Care. 2016.39(Suppl 1). Performed By: #### 2 4323-8 ####[facility] LABORATORYCLIA [id number] [place] [address] [place] Potassium [Moles/Vol] 4.3 mmol/L Normal 3.7-5.1 [facility] Comment on above: Order Comment: Suzanne garcia Type: BLOOD SPECIMENOrdering Facility: [facility] Address: [address] [place] [id number] Performed By: #### 2 4323-8 ####[facility] LABORATORYCLIA [id number] [address] Protein [Mass/Vol] 6.4 g/dL Normal 6.3-8.0 [facility] Comment on above: Order Comment: Speci men Type: BLOOD SPECIMENOrdering Facility: [facility] Address: [address] [place] [address] Performed By: #### 2 4323-8 ####[facility] LABORATORYCLIA [id number] [address] Sodium [Moles/Vol] 136 mmol/L Normal 136-144 [facility] Comment on above: Order Comment: Speci men Type: BLOOD SPECIMENOrdering Facility: [facility] Address: [address] [place] [address] Performed By: #### 2 4323-8 ####[facility] LABORATORYCLIA [id number] [address] Urea nitrogen [Mass/Vol] 10 mg/dL Normal 7-21 [facility] Comment on above: Order Comment: Speci men Type: BLOOD SPECIMENOrdering Facility: [facility] Address: [address] [place] [address] Performed By: #### 2 4323-8 ####[facility] LABORATORYCLIA [id number] [address] ED NOTEon 09-18-2024 ED NOTE HNO ID: [id number] Author: MONE KING RN Service: ? Author Type: Registered Nurse Type: ED Notes Filed: 09/18/2024 22:14 Note Text: Pt report given to Zaria (NAWAF) [facility] ED NOTE HNO ID: [id number] Author: MONE KING RN Service: ? Author Type: Registered Nurse Type: ED Notes Filed: 09/18/2024 22:15 Note Text: IV attempted by this RN. Medic requested to bedside for ultrasound. [facility] ED NOTE HNO ID: [id number] Author: LIANNE FERNANDEZ RN Service: ? Author Type: Registered Nurse Type: ED Notes Filed: 09/18/2024 20:22 Note Text: Bed: ED-15 Expected date: Expected time: Means of arrival: Comments: [facility] ED NOTE HNO ID: [id number] Author: LIANNE FERNANDEZ RN Service: ? Author Type: Registered Nurse Type: ED Notes Filed: 09/18/2024 13:36 Note Text: Discharge instructions reviewed with patient via teachback. Pt verbalizes understanding. Pt awake and alert, respirations regular and unlabored. No further questions for this RN. Report given to [facility] ED NOTE HNO ID: [id number] Author: ZARIA ZAPATA, NAWAF Service: ? Author Type: Registered Nurse Type: ED Notes Filed: 09/18/2024 10:15 Note Text: Bed: ED-01 Expected date: Expected time: Means of arrival: [facility] Comments: [facility] ED PROV NOTEon 09-18-2024 ED PROV NOTE HNO ID: [id number] Author: KRISTI POND DO Service: Emergency Medicine [...] Status Change Penicillins Hives Dioxicillin Promethazine Intolerance Qmjzdzs-Idq-Aoq Red* Myalgia Cheese Diarrhea, GI Upset Parmesan cheese and italian cheese, per patient Review of Systems Constitutional: [...] lower (more content not included)... Normal [facility] ED PROV NOTE HNO ID: [id number] Author: LCINTON GRAJEDA PA-C Service: ? Author Type: Physician Barrel Filler Head Type: ED Provider Notes Filed: 09/18/2024 11:31 [...] Status Change Penicillins Hives Dioxicillin Promethazine Unknown Hbihgoi-Olc-Mfa Red* Myalgia Cheese Diarrhea, GI Upset Parmesan cheese and italian cheese, per patient Review of Systems Constitutional: [...] sen (more content not included)... Normal [facility] PT panel Coag (PPP)on 2024 INR Coag (PPP) [Relative time] 2.3 {INR} High 0.9-1.3 [facility] Comment on above: Order Comment: Speci men Type: BLOOD SPECIMENOrdering Facility: [facility] Address: [address] [place] [address] Result Comment: Kaycee min K Antagonist (VKA) Therapeutic Range: INR 2 to 3 (Target INR of 2.5) Note: For patients treated with VKA drugs, such as warfarin, the [place] [employer] 2012 Guideline recommends [...] Chest 2012, 141:7S-47S Roshni CASTILLO et al. [facility] 2017, 70: 252-289 Performed By: #### 3 4528-0 ####[facility] [place] LABORATORYCLIA [id number] [place] [address] [place] PT Coag (PPP) [Time] 23.8 s High 9.7-13.0 [facility] Comment on above: Order Comment: Speci men Type: BLOOD SPECIMENOrdering Facility: [facility] Address: [address] [place] [address] [place] [address] Performed By: #### 3 4528-0 ####[facility] [place] LABORATORYCLIA [id number] [place] [address] [place] XR ANKLE 3V AP/LAT/OBL [...] tissue swelling of the left lower extremity. Mineral Resources Inspector: CEM Transcribe Date/Time: Sep 18 2024 11:41P Dictated by : STEPHANE GRIMES MD This examination was interpreted and the report reviewed and electronically signed by: STEPHANE GRIMES MD on Sep 18 2024 11:44PM EST [id number] [facility] XR HIP 3V PELV+ AP/LAT [...] tissue swelling of the left lower extremity. Mineral Resources Inspector: CEM Transcribe Date/Time: Sep 18 2024 11:41P Dictated by : STEPHANE GRIMES MD This examination was interpreted and the report reviewed and electronically signed by: STEPHANE GRIMES MD on Sep 18 2024 11:44PM EST [id number] [facility] XR KNEE 4V AP/LAT/OBLS LTon [...] effusion. Vascular calcifications. IMPRESSION: No acute abnormality Mineral Resources Inspector: PSCMarixa Transcribe Date/Time: Sep 18 2024 10:47A Dictated by : WILBERT WALKER MD This examination was interpreted and the report reviewed and electronically signed by: WILBERT WALKER MD on Sep 18 2024 10:48AM EST [id number] [facility] 08-05-2024 [facility] Office Visit (PSYLWM ) RANDOLPH HUNTER ([id number]) 1950 F Date Time Provider Department 08/05/24 11:00 AM GILMER COTTON PSYLWM During your visit today, we recorded the following information about you: Gilmer Cotton, PhD 08/05/2024 12:29 PM Signed [facility] Progress Note Randolph Hunter 08/05/2024 [id number] PROVIDER: Gilmer Cotton PhD CPT Code: Time: 50 minutes Setting: [...] directed once a month. blood sugar diagnostic (DebtMarketUCH VERIO TEST STRIPS) test strip Test blood [...] Psychiatric Medication Issues: see med record DIAGNOSIS: [place] I: Depress (more content not included)... Normal [facility] ED Nursing Noteon 07-10-2024 ED Nursing Note Pt resting quietly i n bed with blanket over face. Respirations even and non labored. No coughing noted at this time. Await transport by Vasquez Molinas. [facility] ED Nursing Note Dr. Jha at bedside. Normal [facility] ED Nursing Noteon 07-09-[address] Jha to bedside . Pt given water. [facility] ED Provider Noteon ED Provider [...] TABLET Place under the tongue. NYSTATIN (MYCOSTATIN) 808392 UNIT/GM POWDER Apply topically 2 times daily. [...] Insecurity: Food Insecurity Present (01/02/2020) [facility] Hunger Vital Sign Worried About Running Out of Food in the Last Year: Sometimes true Ran Out of Food in the Last Year: Never true Transportation Needs: Unmet Transportation Needs (01/02/2020) Received from [facility] (more content not included)... Normal [facility] XR Chest Single viewon 07-09 1. No acute consolidation. Report Dictated on Electronically Signed By: Velasquez Nova MD Electronically Signed Date/Time: 07/09/2024 11:45 PM EST [facility] RADIOLOGY SYSTEM Patient Name: [...] change again noted in the thoracic spine. [facility] Velasquez Nova MD - 07/09/2024 Patient Name: [...] Electronically Signed Date/Time: 07/09/2024 11:45 PM EST [facility] Radiology Study observation (narrative) [facility] XR Chest Single viewOrdered By: Velasquez Nova on 07-09-2024 [facility] Work Phone: CNOVon 05-02-2024 [facility] Office Visit (PSYLWM ) RANDOLPH HUNTER ([id number]) 1950 F Date Time Provider Department 05/02/24 11:00 AM GILMER COTTON PSYLWM During your visit today, we recorded the following information about you: Gilmer Cotton, PhD 05/02/2024 12:11 PM Signed [facility] Progress Note Randolph Hunter 05/02/2024 [id number] PROVIDER: Gilmer Cotton, PhD CPT Code: Time: [...] Issues: No change from previous appointment DIAGNOSIS: [place] I: Depressive Disorder recurrent Morbidly Obese CP [place] II : Deferred [place] III : See medical history [place] IV: Health (more content not included)... Normal [facility] PATINSon 02-10-2024 PATINS Ordered treatment co mpleted and patient is healed. Patient discharged without any issues. All questions answered. Call the clinic if your wound reopens or a new wound appears at [phone]. Edema/Swelling: Avoid standing for long periouds of [...] a day to promote wound healing Normal [facility] Progress Noteon 02-10-2024 Progress Note Assessments [...] Results/Process Orders 10 [] Staff telephones [facility], Nursing Homes/Clarify Orders 10 [] Routine [...] Level 5 (160 or more Points) Normal [facility] Progress Note Subjective Patient ID: Randolph [...] prn Pt agrees with plan . 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 verbal Consent given by: patient Risks discussed? procedural risks discussed Immediately prior to the procedure a time out was called and the performing provider verified the correct patient, procedure, equipment, mission support specialist, and site/side marked as required. [...] Response to treatment: procedure was tolerated well [facility] PATINSon 01-27-2024 PATINS Follow-up Appointmen ts: Return Appointment in 1 week. Call [place] [facility] at [phone], [facility] at [phone], or [facility]ound center at [phone]. Edema/Swelling: Avoid standing for long periouds of [...] the wound and secure with tape. Normal [facility] No Panel Informationon 01-19 Isaac Chicas DO 01/20/2024 3:54 PM Debridement Wound/Incision 01/20/24 Pressure Injury Foot Left Performed by: Isaac Chicas DO Authorized by: Isaac Chicas DO Consent Consent obtained? verbal Consent given by: patient Risks discussed? procedural risks discussed Immediately prior to the procedure a time out was called and the performing provider verified the correct patient, procedure, equipment, mission support specialist, and site/side marked as required. [...] Response to treatment: procedure was tolerated well [facility] PATINSon 01-20-2024 PATINS Follow-up Appointmen ts: Return Appointment in 1 week. Call [place] [facility] at [phone], [facility] at [phone], or [facility]ound center at [phone]. Edema/Swelling: Avoid standing for long periouds of [...] the wound and secure with tape. Normal [facility] Progress Noteon 01-20-2024 Progress Note [facility] [address] [facility] [address] Loc: [phone] Wound Care Visit - New Patient Progress [...] ti,es a day, Disp: , Rfl: HYDROcodone-acetaminophen ([place]) 5-325 MG tablet, Take 1 tablet by [...] the tongue., Disp: , Rfl: nystatin (Mycostatin) 452463 UNIT/GM powder, Apply topically 2 times daily., [...] Consent given (more content not included)... Normal [facility] Progress Note Assessments Nursing Assessment/Reassessment Score [...] Results/Process Orders 10 [x] Staff telephones [facility], Nursing Homes/Clarify Orders 10 [] Routine [...] Level 5 (160 or more Points) Normal [facility] ED Nursing Noteon 12-16-2023 ED Nursing Note Patient wheeled out ED for transport to residence. discharge instructions sent to facility with patient. No further questions. Respirations even and non labored. No acute distress. A&O x4. Gifty Cornell RN 12/16/23 0015 Normal [facility] BASIC METABOLIC PANELon 11-21 Anion gap [Moles/Vol] 4 mmol/L Normal 3-13 [facility] Comment on above: Performed By: #### L AB149, [id number] ####Supervisor Poultry Processing: PING [place]NSEND ([phone])[facility] ([facility])[address] [place] [address] Calcium [Mass/Vol] 8.7 mg/dL Normal 8.4-10.4 [facility] Comment on above: Performed By: #### L AB149, [id number] ####Supervisor Poultry Processing: PING TOWNSEND ([id number])[facility] [place] [address] Chloride [Moles/Vol] 99 mmol/L Normal 98-107 [facility] Comment on above: Performed By: #### L AB149, [id number] ####Supervisor Poultry Processing: PING TOWNSEND ([id number])[facility] ([facility])[address] [place] [address] [place] CO2 [Moles/Vol] 32 mmol/L High 22-30 [facility] Comment on above: Performed By: #### L AB149, [id number] ####Supervisor Poultry Processing: PING TOWNSEND ([phone])[facility] ([facility])[address] [place] [address] [place] Creatinine [Mass/Vol] 1.03 mg/dL Normal 0.52-1.04 [facility] Comment on above: Performed By: #### L AB149, [id number] ####Supervisor Poultry Processing: PING TOWNSEND ([id number])[facility] ([facility])[address] [place] [address] [place] GLOMERULAR FILTRATION RATE ML/MIN/1.73 SQ M.PREDICTED 57.9 mL/min/1.73m*2 Low >60.0 [facility] Comment on above: Result Comment: Calc ulation based on the Chronic Kidney Disease Epidemiology Collaboration (CKD-EPI) equation refit without adjustment for race Performed By: #### L AB149, [id number] ####Supervisor Poultry Processing: PING TOWNSEND ([id number])[facility] ([facility])[address] [place] [address] [place] Glucose [Mass/Vol] 104 mg/dL High 70-100 [facility] Comment on above: Performed By: #### L AB149, LAB15 ####Supervisor Poultry Processing: PING TOWNSEND ([id number])[facility] ([facility])[address] [place] [address] [place] Potassium [Moles/Vol] 4.5 mmol/L Normal 3.5-5.1 [facility] Comment on above: Performed By: #### L AB149, [id number] ####Supervisor Poultry Processing: PING TOWNSEND ([id number])[facility] ([facility])[address] [place] [address] [place] Sodium [Moles/Vol] 135 mmol/L Normal 135-145 [facility] Comment on above: Performed By: #### L AB149, [id number] ####Supervisor Poultry Processing: PING TOWNSEND ([id number])[facility] ([facility])[address] [place] [address] Urea nitrogen [Mass/Vol] 12 mg/dL Normal 7-17 [facility] Comment on above: Performed By: #### L AB149, [id number] ####Supervisor Poultry Processing: PING TOWNSEND ([id number])[facility] ([facility])[address] [place] [address] BLOOD CULTUREon 12-15-2023 Bacteria identified Cx Nom (Bld) BLOOD CULTURE Reference No growth at 5 days ORDER COMMENTS: Blood Collection Site: Right Antecubital [ S = SUSCEPTIBLE R = RESISTANT I = INTERMEDIATE S-DD = Susceptible-dose dependent NS = Non-susceptible NO = No Interpretation ] Normal [facility] Comment on above: Performed By: #### L [id number] ####Supervisor Poultry Processing: PING TOWNSEND ([id number])[facility] ([facility])[address] [place] [address] Bacteria identified Cx Nom (Bld) BLOOD CULTURE Reference No growth at 5 days ORDER COMMENTS: Blood Collection Site: Left Antecubital [ S = SUSCEPTIBLE R = RESISTANT I = INTERMEDIATE S-DD = Susceptible-dose dependent NS = Non-susceptible NO = No Interpretation ] Normal [facility] Comment on above: Performed By: #### L [id number] ####Supervisor Poultry Processing: PING TOWNSEND ([phone])[facility] ([facility])[address] [place] [address] Basic metabolic 1998 panelon 12-15-2023 Anion gap [Moles/Vol] 4 mmol/L 3 - 13 mmol/L [facility] Calcium [Mass/Vol] 8.7 mg/dL 8.4 - 10. 4 mg/dL [facility] Chloride [Moles/Vol] 99 mmol/L 98 - 10 7 mmol/L [facility] CO2 [Moles/Vol] 32 mmol/L High 22 - 30 mmol/L [facility] Creatinine [Mass/Vol] 1.03 mg/dL 0.52 - 1.04 mg/dL [facility] GFR/1.73 sq M.predicted MDRD (S/P/Bld) [Vol rate/Area] 57.9 mL/min/{1.73_m2} Low - PINF [facility] Comment on above: Calculation based on the Chronic Kidney Disease Epidemiology Collaboration (CKD-EPI) equation refit without adjustment for race Glucose [Mass/Vol] 104 mg/dL High 70 - 100 mg/dL [facility] Potassium [Moles/Vol] 4.5 mmol/L 3.5 - 5.1 mmol/L [facility] Sodium [Moles/Vol] 135 mmol/L 135 - 145 mmol/L [facility] Urea nitrogen [Mass/Vol] 12 mg/dL 7 - 17 mg/dL [facility] C-REACTIVE PROTEINon 024 CRP [Mass/Vol] 57.4 mg/L High <10.0 [facility] Comment on above: Performed By: #### L AB149, LAB15 ####Supervisor Poultry Processing: PING TOWNSEND ([phone])[facility] ([facility])[address] [place] [address] CBC W Auto Differential pane l (Bld)on 12-15-2023 Basophils (Bld) [#/Vol] 0.0 10*3/uL 0.0 - 0.2 10*3/uL [facility] Basophils/100 WBC (Bld) 0.2 % 0.0 - 2.0 % [facility] Eosinophils (Bld) [#/Vol] 0.1 10*3/uL 0.0 - 0.5 10*3/uL [facility] Eosinophils/100 WBC (Bld) 0.7 % 0.0 - 6.0 % [facility] Erythrocyte distribution width (RBC) [Ratio] 12.6 % 11.5 - 15.0 % [facility] Hematocrit (Bld) [Volume fraction] 38.3 % 35.0 - 47.0 % [facility] Hemoglobin (Bld) [Mass/Vol] 13.1 g/dL 11.7 - 16.0 g/dL [facility] Immature granulocytes (Bld) [#/Vol] 0.0 10*3/uL NINF - 0.1 10*3/uL [facility] Immature granulocytes/100 WBC (Bld) 0.2 % 0.0 - 2.0 % [facility] Interpretation and review of laboratory results Abnormal [facility] IPF 3 [facility] Lymphocytes (Bld) [#/Vol] 0.9 10*3/uL Low 1.0 - 4.3 10*3/uL [facility] Lymphocytes/100 WBC (Bld) 11.2 % Low 15.0 - 45.0 % [facility] MCH (RBC) [Entitic mass] 31.2 pg 26.0 - 34.0 pg [facility] MCHC (RBC) [Mass/Vol] 34.2 % 30.5 - 36.0 % [facility] MCV (RBC) [Entitic vol] 91.2 fL 77.0 - 99.0 fL [facility] Monocytes (Bld) [#/Vol] 0.5 10*3/uL 0.0 - 0.9 10*3/uL [facility] Monocytes/100 WBC (Bld) 5.6 % 5.0 - 13.0 % [facility] Neutrophils (Bld) [#/Vol] 6.8 10*3/uL 1.8 - 7.5 10*3/uL [facility] Neutrophils/100 WBC (Bld) 82.1 % High 38.0 - 82.0 % [facility] Nucleated RBC/100 WBC (Bld) [Ratio] 0.0 % [facility] Platelet mean volume (Bld) [Entitic vol] 10.1 fL 9.0 - 12.7 fL [facility] Platelets (Bld) [#/Vol] 149 10*3/uL 140 - 440 10*3/uL [facility] RBC (Bld) [#/Vol] 4.20 10*6/uL 3.80 - 5.20 10*6/uL [facility] WBC (Bld) [#/Vol] 8.3 10*3/uL 3.6 - 10.7 10*3/uL [facility] CBC WITH AUTO DIFFERENTIALon 12-15-2023 Basophils (Bld) [#/Vol] 0.0 10*3/uL Normal 0.0-0.2 [facility] Comment on above: Performed By: #### L [id number], [id number] ####Supervisor Poultry Processing: PING TOWNSEND ([id number])[facility] ([facility])[address] [place] [address] [place] Basophils/100 WBC (Bld) 0.2 % Normal 0.0-2.0 [facility] Comment on above: Performed By: #### L [id number], [id number] ####Supervisor Poultry Processing: PING TOWNSEND ([id number])[facility] ([facility])[address] [place] [address] Eosinophils (Bld) [#/Vol] 0.1 10*3/uL Normal 0.0-0.5 [facility] Comment on above: Performed By: #### L [id number], [id number] ####Supervisor Poultry Processing: PING TOWNSEND ([id number])[facility] ([facility])[address] [place] [address] [place] Eosinophils/100 WBC (Bld) 0.7 % Normal 0.0-6.0 [facility] Comment on above: Performed By: #### Abiodun [id number], [id number] ####Supervisor Poultry Processing: PING TOWNSEND ([id number])[facility] ([facility])[address] [place] [address] Erythrocyte distribution width (RBC) [Ratio] 12.6 % Normal 11.5-15.0 [facility] Comment on above: Performed By: #### Abiodun [id number], [id number] ####Supervisor Poultry Processing: PING TOWNSEND ([id number])[facility] ([facility])[address] [place] [address] Hematocrit (Bld) [Volume fraction] 38.3 % Normal 35.0-47.0 [facility] Comment on above: Performed By: #### L [id number], [id number] ####Supervisor Poultry Processing: PING TOWNESND ([id number])[facility] ([facility])[address] [place] [address] Hemoglobin (Bld) [Mass/Vol] 13.1 g/dL Normal 11.7-16.0 [facility] Comment on above: Performed By: #### Abiodun [id number], [id number] ####Supervisor Poultry Processing: PING TOWNSEND ([id number])[facility] ([facility])[address] [place] [address] IMMATURE GRANS % 0.2 % Normal 0.0-2.0 [facility] Comment on above: Performed By: #### Abiodun [id number], [id number] ####Supervisor Poultry Processing: PING TOWNSEND ([phone])[facility] ([facility])[address] [place] [address] IMMATURE GRANS ABSOLUTE 0.0 10*3/uL Normal <0.1 [facility] Comment on above: Performed By: #### Abiodun [id number], [id number] ####Supervisor Poultry Processing: PING TOWNSEND ([id number])[facility] ([facility])[address] [place] [address] [place] IPF 3 Normal [facility] Comment on above: Performed By: #### Abiodun [id number], [id number] ####Supervisor Poultry Processing: PING TOWNSEND ([id number])[facility] ([facility])[address] [place] [address] Lymphocytes (Bld) [#/Vol] 0.9 10*3/uL Low 1.0-4.3 [facility] Comment on above: Performed By: #### Abiodun [id number], [id number] ####Supervisor Poultry Processing: PING TOWNSEND ([id number])[facility] ([facility])[address] [place] [address] [place] Lymphocytes/100 WBC (Bld) 11.2 % Low 15.0-45.0 [facility] Comment on above: Performed By: #### Abiodun [id number], [id number] ####Supervisor Poultry Processing: PING TOWNSEND ([id number])[facility] ([facility])[address] MCH (RBC) [Entitic mass] 31.2 pg Normal 26.0-34.0 [facility] Comment on above: Performed By: #### L AB322, [id number] ####Supervisor Poultry Processing: PING TOWNSEND ([id number])[facility] ([facility])[address] MCHC 34.2 % Normal 30.5-36.0 [facility] Comment on above: Performed By: #### Abiodun [id number], [id number] ####Supervisor Poultry Processing: PING TOWNSEND ([id number])[facility] ([facility])[address] [place] [address] MCV (RBC) [Entitic vol] 91.2 fL Normal 77.0-99.0 [facility] Comment on above: Performed By: #### Abiodun [id number], [id number] ####Supervisor Poultry Processing: PING TOWNSEND ([id number])[facility] ([facility])[address] [place] [address] Monocytes (Bld) [#/Vol] 0.5 10*3/uL Normal 0.0-0.9 [facility] Comment on above: Performed By: #### L [id number], [id number] ####Supervisor Poultry Processing: PING TOWNSEND ([id number])[facility] ([facility])[address] [place] [address] Monocytes/100 WBC (Bld) 5.6 % Normal 5.0-13.0 [facility] Comment on above: Performed By: #### L [id number], [id number] ####Supervisor Poultry Processing: PING TOWNSEND ([id number])[facility] ([facility])[address] [place] [address] NEUTROPHILS ABSOLUTE 6.8 10*3/uL Normal 1.8-7.5 [facility] Comment on above: Performed By: #### Abiodun [id number], [id number] ####Supervisor Poultry Processing: PING TOWNSEND ([id number])[facility] ([facility])[address] [place] [address] [place] Neutrophils/100 WBC (Bld) 82.1 % High 38.0-82.0 [facility] Comment on above: Performed By: #### Abiodun [id number], [id number] ####Supervisor Poultry Processing: PING TOWNSEND ([id number])[facility] ([facility])[address] NRBC 0.0 /100 WBCs Normal 0.0-2.0 [facility] Comment on above: Performed By: #### Abiodun [id number], [id number] ####Supervisor Poultry Processing: PING TOWNSEND ([id number])[facility] ([facility])[address] [place] [address] [place] Platelet mean volume (Bld) [Entitic vol] 10.1 fL Normal 9.0-12.7 [facility] Comment on above: Performed By: #### Abiodun [id number], [id number] ####Supervisor Poultry Processing: PING TOWNSEND ([id number])[facility] ([facility])[address] [place] [address] [place] Platelets (Bld) [#/Vol] 149 10*3/uL Normal 140-440 [facility] Comment on above: Performed By: #### Abiodun [id number], [id number] ####Supervisor Poultry Processing: PING TOWNSEND ([id number])[facility] ([facility])[address] [place] [address] [place] RBC (Bld) [#/Vol] 4.20 10*6/uL Normal 3.80-5.20 [facility] Comment on above: Performed By: #### L [id number], [id number] ####Supervisor Poultry Processing: PING TOWNSEND ([id number])[facility] ([facility])[address] WBC (Bld) [#/Vol] 8.3 10*3/uL Normal 3.6-10.7 [facility] Comment on above: Performed By: #### L AB322, [id number] ####Supervisor Poultry Processing: PING TOWNSEND ([id number])[facility] ([facility])[address] ED Nursing Noteon 12-15-2023 ED Nursing Note Patient to room 7 vi a [facility] for c/o a left foot ulcer, lower leg erythema, and a headache. Patient reports she has had her foot ulcer for a couple of months. V/S obtained, call light within reach. Normal [facility] ED Provider Noteon ED Provider Note [...] Resource Strain: Low Risk (01/02/2020) [facility] Overall Financial Resource Strain (CARDIA) Difficulty of Paying Living Expenses: Not very hard Food Insecurity: Food Insecurity Present (01/02/2020) Re[facility] from [facility] Hunger Vital Sign Worried About Running Out of Food in the Last Year: Sometimes true Ran Out of Food in the Last Year: Never true Transportation Needs: Unmet Transportation Needs (01/02/2020) Re[facility] from [facility] PRAPARE - Transportation Lack of Transportation (Medical): Yes Lack of Transportation (Non-Medical): Yes Physical Activity: Inactive (01/02/2020) Re[facility] from [facility] Exercise Vital Sign Days of Exercise per Week: 0 days Minutes of Exercise per Session: 0 min Stress: Stress Concern Present (01/02/2020) Received from [facility] [place] [facility] - Occupational Stress Questionnaire Feeling of Stress : Rather much Social Connections: Moderately Isolated (01/02/2020) Re[facility] from [facility] Social Connection and Isolatio (more content not included)... [facility] ED Provider Note This patient was sig [...] about putting in her observation unit at [facility] for 24 hours of IV antibiotics versus discharging home with oral antibiotics. After shared decision-making she elected to go home. I do think that this is a safe plan. She lives in assisted living and they can help her with continuing to monitor her wound. Gave her strict return precautions and discharged in stable condition. Karen Gallardo MD 12/15/23 193 Normal [facility] ESR (Bld) [Velocity]Ordered By: Lexi Arce on 12-15-2023 Interpretation and review of laboratory results Normal [facility] Laboratory - Chemistry and C hemistry - challengeon 12-15-2023 CRP [Mass/Vol] 57.4 mg/L High NINF - 10.0 mg/L [facility] Laboratory - Hematology and Cell countsOrdered By: Lexi Arce on 12-15-2023 ESR (Bld) [Velocity] 16 mm/h [facility] No Panel Informationon 12-14 Interpretation and review of laboratory results Abnormal [facility] SEDIMENTATION RATE, AUTOMATE Don 12-15-2023 SEDIMENTATION RATE, ERYTHROCYTE 16 mm/hr Normal 0-20 [facility] Comment on above: Performed By: #### L [id number], [id number] ####Supervisor Poultry Processing: [place] ([id number])[facility] ([address] XR Foot - left 3 Viewson No obvious acute osteomyelitis. Report Dictated on Electronically Signed By: Gloria Darnell MD Electronically Signed Date/Time: 12/15/2023 7:01 PM EDT [facility] Name[facility]ANDOLPH [facility] 1950 [id number] Exam Date/Time: 12/15/2023 18:59 Procedure: XR FOOT [...] of the forefoot. Diffuse vascular calcification present. [facility] Gloria Darnell MD - 12/15/2023 Patient [...] Electronically Signed Date/Time: 12/15/2023 7:01 PM EDT [facility] Radiology Study observation (narrative) [facility] XR Foot - left 3 ViewsOrdere d By: Gloria Darnell on 12-15-2023 [facility] Work Phone: ED Nursing Noteon 07-20-2023 ED Nursing Note Physician's arrived; pt removed from urine collection device and pts own attends placed on pt per her request. Pts belongings in bag at bedside. Report to Physician's. Veronika Bae RN 07/20/23 0804 Normal [facility] ED Nursing Note Physician's Ambulanc e arrived with an ambulette/wheelchair van. Chasidy MCCRACKEN spoke with Physician's to inform them that the pt is non ambulatory and needed a stretcher. Physician's states they will have a stretcher here "within the hour." Veronika Bae RN 07/20/23 0734 Normal [facility] ED Nursing Note Patient pressed call light to request pain medication. States pain is in shoulders and down the back from laying on the tables. notified Gifty Cornell RN 07/20/23 [address] [facility] [address] CERVICAL SPINE WO IV CONT Teresa 07-19-2023 CT CERVICAL SPINE WO IV CONTRAST Patient Name: RANDOLPH HUNTER : 1950 Exam Date/Time: 07/19/2023 22:56 Procedure: CT CERVICAL SPINE WO IV CONTRAST Ordering Provider: ANNA DOUGLAS Reason For Exam: cervical spine pain after fall. fails [place] CT CERVICAL SPINE: CLINICAL INDICATION: cervical spine pain after fall. fails [place] TECHNIQUE: Transaxial sequence through the cervical spine. [...] Electronically Signed Date/Time: 07/19/2023 11:18 PM EST [facility] CT Cervical spine WO contras ton 07-19-2023 No acute cervical sp ine fracture. Multilevel cervical spondylosis. Report Dictated on Electronically Signed By: Albina Newton MD Electronically Signed Date/Time: 07/19/2023 11:18 PM [facility] Patient Name: RANDOLPH HUNTER : 1950 Exam Date/Time: 07/19/2023 22:56 Procedure: CT CERVICAL SPINE WO IV CONTRAST Ordering Provider: ANNA DOUGLAS Reason For Exam: cervical spine pain after fall. fails [place] CT CERVICAL SPINE: CLINICAL INDICATION: cervical spine pain after fall. fails [place] TECHNIQUE: Transaxial sequence through the cervical spine. [...] gland. Other: Lung apices are unremarkable. [facility] Albina Newton M D - 07/19/2023 Patient Name: RANDOLPH HUNTER : 1950 Exam Date/Time: 07/19/2023 22:56 Procedure: CT CERVICAL SPINE WO IV CONTRAST Ordering Provider: ANNA DOUGLAS Reason For Exam: cervical spine pain after fall. fails [place] CT CERVICAL SPINE: CLINICAL INDICATION: cervical spine pain after fall. fails [place] TECHNIQUE: Transaxial sequence through the cervical spine. [...] MD Electronically Signed Date/Time: 07/19/2023 11:[address] [facility] Radiology Study observation (narrative) [facility] CT Cervical spine WO contras tOrdered By: Albina Newton on 07-19-2023 [facility] Work Phone: CT HEAD WO IV CONTRASTon [...] MD Electronically Signed Date/Time: 07/19/2023 11:02 PM [facility] Normal [facility] CT Head WO contraston 2023 No acute intracrania l abnormality. Mild diffuse cortical volume loss. Report Dictated on Electronically Signed By: Albina Newton MD Electronically Signed Date/Time: 07/19/2023 11:02 PM [facility] Patient Name: [...] Normal Calvarium and skull base: Normal [facility] Albina Newton M D - 07/19/2023 Patient Name: RANDOLPH HUNTER : 1950 [id number] Exam Date/Time: 07/19/2023 22:58 Procedure: CT HEAD [...] MD Electronically Signed Date/Time: 07/19/2023 11:[address] [facility] Radiology Study observation (narrative) [facility] CT Head WO contrastOrdered B y: Albina Aman on 07-19-2023 [facility] Work Phone: CT PELVIS WO IV CONTRASTon [...] Signed Date/Time: 07/19/2023 11:27 PM EST Normal [facility] CT Pelvis WO contraston 06-23 No acute fracture. Nonacute findings, as above. Report Dictated on Electronically Signed By: Albina Newton MD Electronically Signed Date/Time: 07/19/2023 11:27 PM EST [facility] Patient Name: [...] No sizable hematoma in the soft tissues. [facility] Albina Newton M D - 07/19/2023 Patient Name: RANDOLPH HUNTER : 1950 [facility]#: [id number] Exam Date/Time: 07/19/2023 22:57 Procedure: CT PELVIS [...] Electronically Signed Date/Time: 07/19/2023 11:27 PM EST [facility] Radiology Study observation (narrative) [facility] CT Pelvis WO contrastOrdered By: Albina Newton on 07-19-2023 [facility] Work Phone: ED Nursing Noteon 07-19-2023 ED Nursing Note Report given to Shubham lopes RN & Chasidy RN. Patient still in radiology. Pia Caraballo RN 07/19/23 1149 Normal [facility] ED Nursing Note Dispo per imaging :) Chasidy Fernandez RN 07/19/23 121 [facility] ED Nursing Note Pt placed up for dis charge. No discharge paperwork complete at this time. Once orders are complete and discharge paperwork complete by ER DR Pt will be discharged. Chasidy Fernandez RN 07/19/23 225 Normal [facility] ED Nursing Note This RN requested or ders from ER . Chasidy Fernandez RN 07/19/232025 [facility] ED Nursing Note Patient is here for right hip pain. She was transferring to the toilet when she fell. She resides at [address] She currently is working with a physical therapist and is in a wheelchair. Patient hooked up to [employer] due to incontinence. She also has right knee bruising that is from her repeatedly hitting it on her wheelchair. She denies hitting her head or neck during fall. She is on coumadin. Call light within reach. Normal [facility] ED Provider Noteon ED Provider Note [...] No family history. She lives in a shelter facility and is on Coumadin as she [...] Encounter SCREENINGS PHYSICAL EXAM ED Triage Vitals [01/28/24 1850] Temp Heart Rate Resp BP 36.7 ?C (98 ?F) 71 18 134/60 SpO2 Temp Source Heart Rate Source Patient (more content not included)... Normal [employer] [facility] No Panel Informationon 07-19 1. Right knee arthro plasty in adequate alignment 2. Unremarkable right hip 3. Osteoarthritis of the left knee Report Dictated on Electronically Signed By: Phan Sepulveda MD Electronically Signed Date/Time: 07/19/2023 11:53 PM EST [facility] [facility] No Panel InformationOrdered By: Phan Sepulveda on 07-19-2023 [employer] Phone: XR Femur - right 2 Viewson [...] calcifications as well as the popliteal fossa. [facility] Phan Sepulveda MD - 07/19/2023 Patient [...] Electronically Signed Date/Time: 07/19/2023 11:53 PM EST [facility] Radiology Study observation (narrative) [facility] XR Knee - left 3 Viewson Patient [...] as well as the popliteal fossa. [facility] Phan Sepulveda MD - [...] Electronically Signed Date/Time: 07/19/2023 11:53 PM EST [facility] Radiology Study observation (narrative) [facility] XR Knee - right 3 Viewson Patient [...] as well as the popliteal fossa. [facility] Phan Sepulveda MD - [...] Electronically Signed Date/Time: 07/19/2023 11:53 PM EST [facility] Radiology Study observation (narrative) [facility] ECG 12-LEADon 09-07-2022 ECG 12-LEAD IMPRESSION: Sinus rhythm Borderline left axis deviation Probable lateral infarct, old Abnrm R prog, consider ASMI or lead placement Electronically Signed On 09-07-2022 11:08:52 EDT by Sai Melchor Normal [facility] ABO and Rh group Confirm Nom (Bld)on 09-06-2022 ABO group Nom (Bld) A [facility] D Ag Ql (RBC) Negative [facility] Basic metabolic 1998 panelon 09-06-2022 Anion gap [Moles/Vol] 5 mmol/L 3 - 13 mmol/L [facility] Calcium [Mass/Vol] 9.2 mg/dL 8.4 - 10. 4 mg/dL [facility] Chloride [Moles/Vol] 104 mmol/L 98 - 10 7 mmol/L [facility] CO2 [Moles/Vol] 30 mmol/L 22 - 30 mmol/L [facility] Creatinine [Mass/Vol] 0.86 mg/dL 0.52 - 1.04 mg/dL [facility] GFR/1.73 sq M.predicted MDRD (S/P/Bld) [Vol rate/Area] 72.3 mL/min/{1.73_m2} - PINF [facility] Comment on above: Calculation based on the Chronic Kidney Disease Epidemiology Collaboration (CKD-EPI) equation refit without adjustment for race Glucose [Mass/Vol] 144 mg/dL High 70 - 100 mg/dL [facility] Interpretation and review of laboratory results Abnormal [facility] Potassium [Moles/Vol] 5.4 mmol/L High 3.5 - 5.1 mmol/L [facility] Sodium [Moles/Vol] 139 mmol/L 135 - 145 mmol/L [facility] Urea nitrogen [Mass/Vol] 26 mg/dL High 7 - 17 mg/dL [facility] Slightly Hemolyzed. Interpret Potassium with caution. [facility] Blood type and Crossmatch pa shaheen (Bld)on 09-06-2022 ABO group Nom (Bld) A [facility] Blood group antibody screen GEL Ql Negative [facility] D Ag Ql (RBC) Negative [facility] CBC W Auto Differential pane l (Bld)on 09-06-2022 Basophils (Bld) [#/Vol] 0.0 10*3/uL 0.0 - 0.2 10*3/uL [facility] Basophils/100 WBC (Bld) 0.5 % 0.0 - 2.0 % [facility] Eosinophils (Bld) [#/Vol] 0.2 10*3/uL 0.0 - 0.5 10*3/uL [facility] Eosinophils/100 WBC (Bld) 3.3 % 1.0 - 6.0 % [facility] Erythrocyte distribution width (RBC) [Ratio] 14.5 % 11.5 - 14.5 % [facility] Hematocrit (Bld) [Volume fraction] 40.1 % 35.0 - 47.0 % [facility] Hemoglobin (Bld) [Mass/Vol] 12.9 g/dL 11.7 - 16.0 g/dL [facility] Interpretation and review of laboratory results Normal [facility] Lymphocytes (Bld) [#/Vol] 1.6 10*3/uL 1.0 - 4.3 10*3/uL [facility] Lymphocytes/100 WBC (Bld) 24.7 % 20.0 - 40.0 % [facility] MCH (RBC) [Entitic mass] 30.6 pg 26.0 - 34.0 pg [facility] MCHC (RBC) [Mass/Vol] 32.2 % 32.0 - 36.0 % [facility] MCV (RBC) [Entitic vol] 95.2 fL 80.0 - 98.0 fL [facility] Monocytes (Bld) [#/Vol] 0.5 10*3/uL 0.0 - 0.8 10*3/uL [facility] Monocytes/100 WBC (Bld) 7.9 % 2.0 - 10.0 % [facility] Neutrophils (Bld) [#/Vol] 4.1 10*3/uL 1.8 - 7.0 10*3/uL [facility] Neutrophils/100 WBC (Bld) 63.6 % 40.0 - 80.0 % [facility] Nucleated RBC/100 WBC (Bld) [Ratio] 0.1 % [facility] Platelet mean volume (Bld) [Entitic vol] 8.7 fL 7.4 - 12.4 fL [facility] Platelets (Bld) [#/Vol] 150 10*3/uL 140 - 440 10*3/uL [facility] RBC (Bld) [#/Vol] 4.21 10*6/uL 3.8 - 5.20 10*6/uL [facility] WBC (Bld) [#/Vol] 6.4 10*3/uL 3.6 - 10.7 10*3/uL [facility] CT CERVICAL SPINE WO IV CONT [facility] 09-06-2022 CT CERVICAL SPINE WO [...] cervical spine fracture. Report Dictated on Workstation: [employer] Electronically Signed By: Tiago Charles Electronically Signed Date/Time: 09/06/2022 2:24 AM EDT [facility] SH[facility] CT Cervical spine WO contras ton 09-06-2022 No cervical spine fr acture. Report Dictated on Workstation: [employer] Electronically Signed By: Tiago Charles Electronically Signed Date/Time: 09/06/2022 2:24 AM EDT [facility] Patient Name: PATSY MCFARLANE : 1950 [...] soft tissues and lung apices are unremarkable. [facility] Tiago Charles MD - Patient Name: [...] Electronically Signed Date/Time: 09/06/2022 2:24 AM EDT [facility] CT HEAD WO IV CONTRASTon CT [...] Signed Date/Time: 09/06/2022 8:39 AM EDT Normal [facility] CT HEAD WO IV CONTRAST Patient [...] Signed Date/Time: 09/06/2022 2:16 AM EDT Normal [facility] CT Head WO contraston [address] evidence of ac radhika intracranial abnormality, other than mild acute sphenoid sinusitis. Report Dictated on Electronically Signed By: Gloria Darnell Electronically Signed Date/Time: 09/06/2022 8:39 AM EDT [facility] [employer] [facility] Patient Name: DANIEL DIAZ, ECHO : [...] the distal vertebral arteries is also noted. [facility] Gloria Darnell MD - 09/06/2022 Patient Name: PATSY JUAN : 1950 [facility]#: [id number] Exam Date/Time: 09/06/2022 08:26 Procedure: CT HEAD [...] sinusitis. Report Dictated on Electronically Signed By: Gloira Darnell Electronically Signed Date/Time: 09/06/2022 8:39 AM EDT [facility] Radiology Study observation (narrative) [facility] No acute intracrania l hemorrhage or mass effect. Report Dictated on Electronically Signed By: Tiago Charles Electronically Signed Date/Time: 09/06/2022 2:16 AM EDT [facility] [employer] [facility] Patient Name: DANIEL DIAZ ECHO : [...] cells are well aerated. Calvarium is unremarkable. [facility] [facility] Tiago Charles MD - Patient Name: [...] Electronically Signed Date/Time: 09/06/2022 2:16 AM EDT [facility] CT Head WO contrastOrdered B y: Gloria Hernandezdianaremy on 09-06-2022 [facility] Work Phone: ED Nursing Noteon 09-06-2022 ED Nursing Note RN called back from [facility]idence for report after patient left. This RN updated RN. No questions or concerns Lucy Jones RN 09/06/22 1115 [facility] ED Nursing Note This RN attempted re port at [facility] for patient. RN's busy, executive secretary took RN name and number to return call for report if wanted. Lucy Jones RN 09/06/22 1018 [facility] ED Nursing Note DM ETA 20-30 min (10 20-1030) Lucy Jones RN 09/06/22 0953 [facility] ED Nursing Note Patient resting with eyes closed. Respirations even and unlabored. RN called about work order for call light / panel. Will be there soon to fix. Lucy Jones RN 09/06/22 0955 [facility] ED Nursing Note Pt back in room Lucy Jones RN 09/06/22 0832 [facility] ED Nursing Note Pt at CT Lucy Jones RN 09/06/22 0833 [facility] ED Nursing Note Patient yelling [...] this time Lucy Jones RN 09/06/22 0739 [facility] ED Nursing Note Pt to x-ray in stabl e condition. Bárbara Hogan RN 09/06/22225 [facility] ED Nursing Note Report of to bárbara Younger RN 09/06/22220 [facility] ED Nursing Note Bed: 23 Expected date: Expected time: Means of arrival: Comments: SX TEAM Aaron Wallace RN 09/06/22220 [facility] ED Provider Noteon ED Provider Note Emergency Department Encounter Location: [facility] EM[facility]Y [facility] Patient: Patsy Juan : [...] 445 ms QTC Interval 457 ms P [place] 49 degrees QRS [place] -29 degrees T Wave [place] 11 degrees GA Interval [address] head wo IV [...] Result Upper pelvis is excluded from the [id number]. No fracture or dislocation of the imaged [...] female whose (more content not included)... [facility] ED Provider Note Emergency Department Encounter Location: [facility] EM[facility] Patient: Patsy Juan : [...] 445 ms QTC Interval 457 ms P [place] 49 degrees QRS [place] -29 degrees T Wave [place] 11 degrees GA Interval 149 ms XR shoulder 2+ views [...] Result Upper pelvis is excluded from the bpolt-my-ovpr. No fracture or dislocation of the imaged [...] ED Course and MDM: In brief, Patsy uJan is a 72 y.o. female whose care was signed out to me by the outgoing provider. In brief, the patient was signed out to me pending repeat CT head with plans to DC if negative. Medications acetaminophen (Tylenol) tablet 650 mg (has no administration in time range) Final Impression 1. (more content not included)... [facility] ED Provider Note [facility] EM[facility] EMERGENCY DEPARTMENT ENCOUNTER Pt [...] included)... [facility] Ethanol (Bld) [Mass/Vol]on 0 09-06-2022 Ethanol [Mass/Vol] g/dL 0.000 - 0.010 g/dL [facility] - Chemistry and C hemistry - challengeon 09-06-2022 Troponin I.cardiac [Mass/Vol] ng/mL 0.000 - 0.034 ng/mL [facility] Magnesium [Mass/Vol] 1.8 mg/dL 1.6 - 2 .3 mg/dL [facility] Lactate [Moles/Vol] 1.4 mmol/L 0.7 - 2. 0 mmol/L [facility] Laboratory - Coagulationon 0 09-06-2022 aPTT Coag (PPP) [Time] 33.8 s High 20.0 - 30.5 s [facility] INR Coag (PPP) [Relative time] 1.8 {INR} High 0.9 - 1.1 [facility] Comment on above: Recommended Anticoag ulant [...] s High 9.0 - 1 2.0 s [facility] Laboratory - Drug toxicology Ordered By: Harper Estes on 09-06-2022 Amphetamines Screen method >1000 ng/mL Ql (U) Negative [facility] Barbiturates Screen method >200 ng/mL Ql (U) Negative [facility] Benzodiazepines Ql (U) Negative [facility] Methadone Screen Ql (U) Negative [facility] Opiates Screen Ql (U) Positive [facility] oxyCODONE Ql (U) Negative [facility] Phencyclidine Ql (U) Negative [facility] Magnesium [Mass/Vol]on 09-06 .01 [facility] No Panel InformationOrdered By: Harper Estes on 09-06-2022 COCAINE METAB. SCREEN Negative [facility] The expected value f or all of [...] is needed, request confirmation under separate order. [facility] No Panel Informationon 09-06 Interpretation and review of laboratory results Normal [facility] Interpretation and review of laboratory results Normal [facility] Interpretation and review of laboratory results Abnormal [facility] Radiology Study observation (narrative) [facility] Phosphate [Moles/Vol]on 08-20 Phosphate [Mass/Vol] 3.9 mg/dL 2.5 - 4 .5 mg/dL [facility] [employer] [employer] [facility] Slightly Hemolyzed. Interpret Phosphorus with caution. [facility] [facility] Progress Noteon 09-06-2022 Progress Note Department of Trauma / Critical Care Tertiary Survey Date of Trauma: 09/06/2022 1:36 AM MARIANELA/HPI: 72 y.o. female status post fall from standing. The incident happened around 0120 on 09/06/22 at [facility]. When the event happened the patient was [...] fracture or dislocation. Report Dictated on Workstation: [employer] Electronically Signed By: Tiago Charles Electronically Signed Date/Time: 09/06/2022 3:11 AM EDT XR shoulder 2+ views right Result Date: 09/06/2022 Patient Name: DRAKE ECHO : 1950 Exam Date/Time: 09/06/2022 02:47 [...] identified. There (more content not included)... Normal [facility] Troponin I.cardiac [Mass/Vol ]on 09-06-2022 Interpretation and review of laboratory results Normal [facility] Patients with high l evels of Biotin oral intake (ie >5 mg/day) may have falsely decreased Troponin levels. [facility] XR Chest Single viewon 09-06 No focal consolidati on or pulmonary edema. Report Dictated on Electronically Signed By: Tiago Charles Electronically Signed Date/Time: 09/06/2022 2:12 AM EDT [facility] Patient Name: DANIEL DIAZ ECHO : 1950 Exam Date/Time: 09/06/2022 02:06 Procedure: XR CHEST 1 VIEW Ordering Provider: HUTSON RICHARD Reason For Exam: TRAUMA PORTABLE CHEST CLINICAL INDICATION: Pain, trauma TECHNIQUE: Portable AP COMPARISON: None FINDINGS: No focal consolidation or pulmonary edema. No pleural effusions or pneumothorax. The cardiac and mediastinal silhouettes are normal. Degenerative change of the thoracic spine is noted. [facility] Tiago Charles MD - Patient Name: [...] Electronically Signed Date/Time: 09/06/2022 2:12 AM EDT [facility] Radiology Study observation (narrative) [facility] XR Chest Single viewOrdered By: Tiago Charles on 09-06-2022 [facility] Work Phone: XR Pelvis 1 or 2 Viewson Upper pelvis is excl uded from the [id number]-pp-zihf. No fracture or dislocation of the imaged pelvis. Report Dictated on Electronically Signed By: Tiago Charles Electronically Signed Date/Time: 09/06/2022 2:12 AM EDT [facility] [employer] [facility] Patient Name: DANIEL DIAZ ECHO : 1950 Exam Date/Time: 09/06/2022 02:07 Procedure: XR PELVIS 1-2 VIEWS Ordering Provider: HUTSON RICHARD Reason For Exam: TRAUMA PELVIS: CLINICAL INDICATION: Pain, trauma. TECHNIQUE: AP. Technical note: Upper pelvis is excluded from the boptj-pm-meot. COMPARISON: None. FINDINGS: There is no evidence for fracture or dislocation. The hips joints are unremarkable. The imaged sacroiliac joints are normal. No bone lesion is identified. There is no soft tissue abnormality. Surgical clips project over the right groin. [facility] Tiago Charles MD - Patient Name: PATSY JUAN : 1950 Exam Date/Time: 09/06/2022 02:07 Procedure: XR PELVIS 1-2 VIEWS Ordering Provider: HUTSON RICHARD Reason For Exam: TRAUMA PELVIS: CLINICAL INDICATION: Pain, trauma. TECHNIQUE: AP. Technical note: Upper pelvis is excluded from the menlf-gp-cwxd. COMPARISON: None. FINDINGS: There is no evidence for fracture or dislocation. The hips joints are unremarkable. The imaged sacroiliac joints are normal. No bone lesion is identified. There is no soft tissue abnormality. Surgical clips project over the right groin. IMPRESSION: Upper pelvis is excluded from the fxfmw-sp-usbs. No fracture or dislocation of the imaged pelvis. Report Dictated on Electronically Signed By: Tiago Charles Electronically Signed Date/Time: 09/06/2022 2:12 AM EDT [facility] Radiology Study observation (narrative) [facility] XR Shoulder - left 2 Viewson 09-06-2022 No fracture or dislo cation. Report Dictated on Electronically Signed By: Tiago Charles Electronically Signed Date/Time: 09/06/2022 3:11 AM EDT [facility] [employer] Patient Name: DANIEL DIAZ ECHO : [...] There is no soft tissue abnormality. [facility] Tiago Charles MD - [...] Electronically Signed Date/Time: 09/06/2022 3:11 AM EDT [facility] Radiology Study observation (narrative) [facility] XR Shoulder - right 2 Viewso n 09-06-2022 No fracture or dislo cation. Report Dictated on Electronically Signed By: Tiago Charles Electronically Signed Date/Time: 09/06/2022 2:42 AM EDT [facility] Patient Name: PATSY MCFARLANE : 1950 [...] identified. There is no soft tissue abnormality. [facility] Tiago Charles MD - Patient Name: [...] Electronically Signed Date/Time: 09/06/2022 2:42 AM EDT [facility] [facility] observation (narrative) [facility] CULTURE BLOODon 03-14-2022 Microscopic examination of blood, culture CULTURE BLOOD --> Status: F [employer] Film[employer] testing is not routinely performed on Gram positive bacilli. If a Listeria infection is highly suspected, contact the Microbiology laboratory ([phone]). positive bacilli. If a Listeria infection is highly suspected, contact the Microbiology laboratory ([phone]). 1 Organism Propionibacterium acnes Isolated: Contamination likely unless additional blood culture sets are found to be positive with the same organism. Normal [facility] Comment on above: Performed By: #### C /BLD #### [facility] [address] [place] [address] CULTURE BLOOD (Two)on 2021 Microscopic examination of blood, culture CULTURE BLOOD (Two) --> Status: F No growth at 5 days. Normal [facility] Comment on above: Performed By: #### P T/AP, BMP3, HEMDF #### [facility] [employer] [address] [place] [address] GASTROINTESTINAL PCR PANELon 03-12-2022 GASTROINTESTINAL PCR PANEL GASTROINTESTINAL PCR PANEL --> Status: F NEGATIVE: No targets were detected by the [employer] Gastrointestinal PCR Panel. _ The [employer] Gastrointestinal [...] Astrovirus, Norovirus GI/GII, Rotavirus A, Sapovirus Normal [facility] Comment on above: Performed By: #### B FGI #### [address] [address] Gastrointestinal Panel by [facility] 03-12-2022 Gastrointestinal PCR Panel NEGATIVE: No targets were detected by the [employer] Gastrointestinal PCR Panel. _ The [employer] Gastrointestinal PCR Panel can detect the following targets: Campylobacter, Plesiomonas shigelloides, Salmonella, Vibrio species, Vibrio cholerae, Yersinia enterocolitica, Shiga toxin-producing E coli (STEC) including E coli O157, Enterotoxigenic E coli (ETEC), Shigella/Enteroinvasive E coli (EIEC), Cryptosporidium, Cyclospora cayetanensis, Entamoeba histolytica, Giardia lamblia, Adenovirus F 40/41, Astrovirus, Norovirus GI/GII, Rotavirus A, Sapovirus [facility] Test Performed by [facility], [address] [place] [address] LAB [facility] Glucose,Bedsideon 03-12-2022 Glucose [Mass/Vol] 177 mg/dL High 70-100 [facility] Comment on above: Result Comment: Test performed by glucose meter. Results may be 10%-15% lower than serum/plasma values. (CLIA ID [id number]) Performed By: #### B GLU #### [facility] [address] [place] [address] Glucose [Mass/Vol] 130 mg/dL High 70-100 [facility] Comment on above: Result Comment: Test performed by glucose meter. Results may be 10%-15% lower than serum/plasma values. (CLIA ID [id number]) Performed By: #### B GLU #### [facility] [address] [place] [address] Glucose [Mass/Vol] 141 mg/dL High 70-100 [facility] Comment on above: Result Comment: Test performed by glucose meter. Results may be 10%-15% lower than serum/plasma values. (CLIA ID [id number]) Performed By: #### P T/AP, BMP3, HEMDF #### [facility] [address] [place] [address] Glucose [Mass/Vol] 120 mg/dL High 70-100 [facility] Comment on above: Result Comment: Test performed by glucose meter. Results may be 10%-15% lower than serum/plasma values. (CLIA ID [id number]) Performed By: #### B GLU #### [facility] [address] [place] [address] POCT GlucoseOrdered By: Hansel Connell on 03-12-2022 Glucose [Mass/Vol] 177 mg/dL High 70 - 100 mg/dL [facility] Work Phone: Comment on above: Test performed by gl ucose meter. Results may be 10%-15% lower than serum/plasma values. (CLIA ID [id number]) Interpretation and review of laboratory results Abnormal [facility] Work Phone: [facility] Work Phone: POCT Glucoseon 03-12-2022 Test Performed by [facility], [address] [place], [place] [address] [facility] Glucose [Mass/Vol] 130 mg/dL High 70 - 100 mg/dL [facility] Comment on above: Test performed by gl ucose meter. Results may be 10%-15% lower than serum/plasma values. (CLIA ID [id number]) Interpretation and review of laboratory results Abnormal [facility] Test Performed by [facility], [address] LAB [facility] Glucose [Mass/Vol] 141 mg/dL High 70 - 100 mg/dL [facility] Comment on above: Test performed by gl ucose meter. Results may be 10%-15% lower than serum/plasma values. (CLIA ID [id number]) Interpretation and review of laboratory results Abnormal [facility] Test Performed by [facility], [address] LAB [facility] Glucose [Mass/Vol] 120 mg/dL High 70 - 100 mg/dL [facility] Work Phone: Comment on above: Test performed by gl ucose meter. Results may be 10%-15% lower than serum/plasma values. (CLIA ID [id number]) Interpretation and review of laboratory results Abnormal [facility] Work Phone: Test Performed by [facility], [address] LAB [facility] Work Phone: Prothrombin Timeon 2 INR 3.6 High 0.9-1.1 [facility] Comment on above: Result Comment: Rajiv [...] By: #### P T/AP, BMP3, HEMDF #### [facility] [address] [place] [address] PT Coag (PPP) [Time] 36.1 s High 9.0-12.0 [facility] Comment on above: Result Comment: . Performed By: #### P T/AP, BMP3, HEMDF #### [facility] [address] [place] [address] Protime-INRon 03-12-2022 INR Coag (Bld) [Relative time] 3.6 {INR} High [facility] Comment on above: Recommended Anticoag ulant [...] Interpretation and review of laboratory results Abnormal [facility] PT Coag (PPP) [Time] 36.1 s High 9 - 12 s [facility] Comment on above: . Test Performed by [facility], [address] [place] [address] [facility] LAB [facility] Basic Metabolic Panelon 02-21 Anion gap [Moles/Vol] 1 mmol/L Low 3-13 [facility] Comment on above: Performed By: #### P T/AP, BMP3, HEMDF #### [facility] [address] [place] [address] Calcium [Mass/Vol] 8.1 mg/dL Low 8.4-10.4 [facility] Comment on above: Performed By: #### P T/AP, BMP3, HEMDF #### [facility] [address] [place] [address] CO2 [Moles/Vol] 30 mmol/L Normal 22-30 [facility] Comment on above: Performed By: #### P T/AP, BMP3, HEMDF #### [facility] [address] [place] [address] Creatinine [Mass/Vol] 0.70 mg/dL Normal 0.52-1.25 [facility] Comment on above: Performed By: #### P T/AP, BMP3, HEMDF #### [facility] [address] [place] [address] GFR/1.73 sq M.predicted among blacks MDRD (S/P/Bld) [Vol rate/Area] mL/min/{1.73_m2} Normal >60 [facility] Comment on above: Performed By: #### P T/AP, BMP3, HEMDF #### [facility] [address] [place] [address] GFR/1.73 sq M.predicted among non-blacks MDRD (S/P/Bld) [Vol rate/Area] 87.4 mL/min/{1.73_m2} Normal >60 [facility] Comment on above: Result Comment: KDIG [...] By: #### P T/AP, BMP3, HEMDF #### [facility] [address] [place] [address] Glucose [Mass/Vol] 118 mg/dL High 70-100 [facility] Comment on above: Performed By: #### P T/AP, BMP3, HEMDF #### [facility] [address] [place] [address] Urea nitrogen [Mass/Vol] 8 mg/dL Low 9-20 [facility] Comment on above: Performed By: #### P T/AP, BMP3, HEMDF #### [facility] [address] [place] [address] Chloride [Moles/Vol] 106 mmol/L Normal 98-107 [facility] Comment on above: Performed By: #### P T/AP, BMP3, HEMDF #### [facility] [address] [place] [address] Potassium [Moles/Vol] 4.1 mmol/L Normal 3.5-5.1 [facility] Comment on above: Performed By: #### P T/AP, CLAIRE, HEMDF #### [facility] [address] [place] [address] Sodium [Moles/Vol] 137 mmol/L Normal 135-145 [facility] Comment on above: Performed By: #### P T/AP, BMP3, HEMDF #### [facility] [address] [place] [address] Anion gap [Moles/Vol] 1 mmol/L Low 3 - 13 mmol/L [facility] Calcium [Mass/Vol] 8.1 mg/dL Low 8.4 - 10. 4 mg/dL [facility] Chloride [Moles/Vol] 106 mmol/L 98 - 10 7 mmol/L [facility] CO2 [Moles/Vol] 30 mmol/L 22 - 30 mmol/L [facility] Creatinine [Mass/Vol] 0.7 mg/dL 0.52 - 1.25 mg/dL [facility] eGFR mL/min 60 - P INF mL/min [facility] EGFR IF NonAfrican Montenegrin 87.4 mL/min 60 - PINF mL/min [facility] Comment on above: KDIGO guidelines pro vide [...] - 20 mg/dL [facility] Test Performed by [facility], [address], [place], [place] [address] [facility] CBC with Auto Differentialon 03-11-2022 [...] - 10.7 10*3/uL [facility] Test Performed by [facility], [address], [place], [place] [address] [facility] CULTURE URINEon 03-11-2022 CULTURE URINE 1 [...] 1 S Amikacin(NORMA) <= 2 S Normal [facility] Comment on above: Performed By: #### P T/AP, BMP3, HEMDF #### [facility] [address] [place] [address] Culture, Urineon 03-11-2022 Bacteria identified Cx Nom (U) Klebsiella pneumoniae ss. pneumoniae Abnormal [facility] Bacteria identified Cx Nom (U) >100,000 CFU/ml [facility] Interpretation and review of laboratory results Abnormal [facility] Test Performed by [facility], [address] [place] [address], [place] [address] [facility] Glucose,Bedsideon 03-11-2022 Glucose [Mass/Vol] 140 mg/dL High [address] [facility] Comment on above: Result Comment: Test performed by glucose meter. Results may be 10%-15% lower than serum/plasma values. (CLIA ID [id number]) Performed By: #### P T/AP, BMP3, HEMDF #### [facility] [address] [place] [address] Glucose [Mass/Vol] 121 mg/dL [facility] [address] Comment on above: Result Comment: Test performed by glucose meter. Results may be 10%-15% lower than serum/plasma values. (CLIA ID [id number]) Performed By: #### P T/AP, BMP3, HEMDF #### [facility] [employer] [facility] [address] [place] [address] Glucose [Mass/Vol] 127 mg/dL [address] Comment on above: Result Comment: Test performed by glucose meter. Results may be 10%-15% lower than serum/plasma values. (CLIA ID [id number]) Performed By: #### P T/AP, BMP3, HEMDF #### [facility] [employer] [facility] [address] [place] [address] Glucose [Mass/Vol] 139 mg/dL High [address] Comment on above: Result Comment: Test performed by glucose meter. Results may be 10%-15% lower than serum/plasma values. (CLIA ID [id number]) Performed By: #### P T/AP, BMP3, HEMDF #### [facility] [address] [place] [address] Hemogram w/ Autodiffon 03-11 Abs Baso Cnt 0.0 10*3/uL Normal 0.0-0.2 [facility] Comment on above: Performed By: #### P T/AP, BMP3, HEMDF #### [facility] [address] [place] [address] Abs Neutrophile Cnt 2.9 10*3/uL Normal 1.8-7.0 [facility] Comment on above: Performed By: #### P T/AP, BMP3, HEMDF #### [facility] [address] [place] [address] Basophils/100 WBC (Bld) 0.6 % Normal 0.0-2.0 [facility] Comment on above: Performed By: #### P T/AP, BMP3, HEMDF #### [facility] [address] [place] [address] Eosinophils (Bld) [#/Vol] 0.2 10*3/uL Normal 0.0-0.5 [facility] Comment on above: Performed By: #### P T/AP, BMP3, HEMDF #### [facility] [address] [place] [address] Eosinophils/100 WBC (Bld) 5.3 % Normal 1.0-6.0 [facility] Comment on above: Performed By: #### P T/AP, BMP3, HEMDF #### [facility] [address] [place] [address] Erythrocyte distribution width (RBC) [Ratio] 13.8 % Normal 11.5-14.5 [facility] Comment on above: Performed By: #### P T/AP, BMP3, HEMDF #### [facility] [address] [place] [address] Granulocytes/100 WBC (Bld) 62.2 % Normal 40.0-80.0 [facility] Comment on above: Performed By: #### P T/AP, BMP3, HEMDF #### [facility] [address] [place] [address] Hematocrit (Bld) [Volume fraction] 32.8 % Low 35.0-47.0 [facility] Comment on above: Performed By: #### P T/AP, BMP3, HEMDF #### [facility] [address] [place] [address] Hemoglobin (Bld) [Mass/Vol] 11.7 g/dL Normal 11.7-16.0 [facility] Comment on above: Performed By: #### P T/AP, BMP3, HEMDF #### [facility] [address] [place] [address] Lymphocytes (Bld) [#/Vol] 1.0 10*3/uL Normal 1.0-4.3 [facility] Comment on above: Performed By: #### P T/AP, BMP3, HEMDF #### [facility] [address] [place] [address] Lymphocytes/100 WBC (Bld) 22.5 % Normal 20.0-40.0 [facility] Comment on above: Performed By: #### P T/AP, BMP3, HEMDF #### [facility] [address] [place] [address] MCH (RBC) [Entitic mass] 32.1 pg Normal 26.0-34.0 [facility] Comment on above: Performed By: #### P T/AP, BMP3, HEMDF #### [facility] [address] [place] [address] MCHC 35.6 % Normal 32.0-36.0 [facility] Comment on above: Performed By: #### P T/AP, BMP3, HEMDF #### [facility] [address] [place] [address] MCV (RBC) [Entitic vol] 90.2 fL Normal 79.0-98.0 [facility] Comment on above: Performed By: #### P T/AP, BMP3, HEMDF #### [facility] [address] [place] [address] Monocytes (Bld) [#/Vol] 0.4 10*3/uL Normal 0.0-0.8 [facility] Comment on above: Performed By: #### P T/AP, BMP3, HEMDF #### [facility] [address] [place] [address] Monocytes/100 WBC (Bld) 9.4 % Normal 2.0-10.0 [facility] Comment on above: Performed By: #### P T/AP, BMP3, HEMDF #### [facility] [address] [place] [address] Platelet mean volume (Bld) [Entitic vol] 8.2 fL Normal 7.4-12.4 [facility] Comment on above: Result Comment: MPV is a calculated measurement using platelet volume ratio. Performed By: #### P T/AP, BMP3, HEMDF #### [facility] [address] [place] [address] Platelets (Bld) [#/Vol] 128 10*3/uL Low 140-440 [facility] Comment on above: Performed By: #### P T/AP, BMP3, HEMDF #### [facility] [address] [place] [address] RBC (Bld) [#/Vol] 3.63 10*6/uL Low 3.80-5.20 [facility] Comment on above: Performed By: #### P T/AP, BMP3, HEMDF #### [facility] [address] [place] [address] WBC (Bld) [#/Vol] 4.6 10*3/uL Normal 3.6-10.7 [facility] Comment on above: Performed By: #### P T/AP, BMP3, HEMDF #### [facility] [address] [place] [address] POCT COVID-19, Antigenon SARS-CoV-2 Nucleocapsid Antigen Negative Negative [facility] Comment on above: A negative result does not rule out the possibility of SARS-CoV-2 infection. NAAT-based methods should be considered for symptomatic patients presenting greater than seven days after onset of symptoms. Method: Lateral flow immunoassay. Fact sheets for healthcare providers and patients can be found at the following sites: https://www.fda.gov/media/783615/download https://www.fda.gov/media/386646/download Test Performed by [facility], [address] [place] [address] [facility] POCT GlucoseOrdered By: Pedro Luis Mcleod on 03-11-2022 Glucose [Mass/Vol] 140 mg/dL High 70 - 100 mg/dL [facility] Comment on above: Test performed by gl ucose meter. Results may be 10%-15% lower than serum/plasma values. (CLIA ID [id number]) Interpretation and review of laboratory results Abnormal [facility] POCT Glucoseon 03-11-2022 Test Performed by [facility], [address] LAB Glucose [Mass/Vol] 121 mg/dL High 70 - 100 mg/dL [facility] Work Phone: Comment on above: Test performed by gl ucose meter. Results may be 10%-15% lower than serum/plasma values. (CLIA ID [id number]) Interpretation and review of laboratory results Abnormal [facility] Work Phone: Test Performed by [facility], [address] LAB [facility] Work Phone: Test Performed by [facility], [address] LAB Glucose [Mass/Vol] 139 mg/dL High 70 - 100 mg/dL [facility] Work Phone: Comment on above: Test performed by gl ucose meter. Results may be 10%-15% lower than serum/plasma values. (CLIA ID [id number]) Interpretation and review of laboratory results Abnormal [facility] Work Phone: Test Performed by [facility], [address] LAB [facility] Work Phone: POCT GlucoseOrdered By: Mil Marie on 03-11-2022 Glucose [Mass/Vol] 127 mg/dL High 70 - 100 mg/dL [facility] Work Phone: Comment on above: Test performed by gl ucose meter. Results may be 10%-15% lower than serum/plasma values. (CLIA ID [id number]) Interpretation and review of laboratory results Abnormal [facility] Work Phone: [facility] Work Phone: PROTIME/INR & PTTon 03-11-20 22 INR Coag (Bld) [Relative time] 5.0 {INR} Critically high [facility] Comment on above: Recommended Anticoag ulant [...] Interpretation and review of laboratory results Abnormal [facility] Test Performed by [facility], [address] [place], [place] [address] [place] [address] LAB [facility] Protime AND APTTon 2 INR 5.0 Critically high 0.9-1.1 [facility] Comment on above: Result Comment: Rajiv [...] prevent Myocardial Infarction Performed By: #### P T/CLAIRE RENE, HEMDF #### [facility] [address] [place] [address] aPTT Coag (Bld) [Time] 44.1 s High 20.0-30.5 [facility] Comment on above: NOTE: The therapeuti c time for Heparin anticoagulation, based on Xa activity inhibition, is an APTT of 46-80 seconds. Result Comment: NOTE : The therapeutic time for Heparin anticoagulation, based on Xa activity inhibition, is an APTT of 46-80 seconds. Performed By: #### P T/AP, BMP3, HEMDF #### [facility] [address] [place] [address] PT Coag (PPP) [Time] 48.7 s High 9.0-12.0 [facility] Comment on above: . Result Comment: . Performed By: #### P T/AP, BMP3, HEMDF #### [employer] [address] [place] [address] SARS-CoV-2 Antigenon SARS-CoV-2 Antigen Negative Normal Negative [facility] Comment on above: Result Comment: A negative result does not rule out the possibility of SARS-CoV-2 infection. NAAT-based methods should be considered for symptomatic patients presenting greater than seven days after onset of symptoms. Method: Lateral flow immunoassay. Fact sheets for healthcare providers and patients can be found at the following sites: https://www.[employer].gov/media/387073/download https://www.[employer].gov/media/564211/download Performed By: #### P T/AP, BMP3, HEMDF #### [employer] [address] [place] [address] Glucose,Bedsideon 03-10-2022 Glucose [Mass/Vol] 137 mg/dL High 70-100 [facility] Comment on above: Result Comment: Test performed by glucose meter. Results may be 10%-15% lower than serum/plasma values. (CLIA ID [id number]) Performed By: #### P T/AP, BMP3, HEMDF #### [employer] [address] [place] [address] Glucose [Mass/Vol] 98 mg/dL Normal 70-100 [facility] Comment on above: Result Comment: Test performed by glucose meter. Results may be 10%-15% lower than serum/plasma values. (CLIA ID [id number]) Performed By: #### P T/AP, BMP3, HEMDF #### [employer] [address] [place] [address] Glucose [Mass/Vol] 143 mg/dL High 70-100 [facility] Comment on above: Result Comment: Test performed by glucose meter. Results may be 10%-15% lower than serum/plasma values. (CLIA ID [id number]) Performed By: #### B GLU #### [facility] [address] [place] [address] Glucose [Mass/Vol] 170 mg/dL High 70-100 [facility] Comment on above: Result Comment: Test performed by glucose meter. Results may be 10%-15% lower than serum/plasma values. (CLIA ID [id number]) Performed By: #### B GLU #### [facility] [address] [place] [address] POCT GlucoseOrdered By: Tristin Mayers on 03-10-2022 Glucose [Mass/Vol] 137 mg/dL High 70 - 100 mg/dL [facility] Comment on above: Test performed by gl ucose meter. Results may be 10%-15% lower than serum/plasma values. (CLIA ID [id number]) Interpretation and review of laboratory results Abnormal [facility] POCT Glucoseon 03-10-2022 Test Performed by [facility], [address] LAB Glucose [Mass/Vol] 98 mg/dL 70 - 100 mg/dL [facility] Work Phone: Comment on above: Test performed by gl ucose meter. Results may be 10%-15% lower than serum/plasma values. (CLIA ID [id number]) Test Performed by [facility], [address] LAB [facility] Work Phone: Test Performed by [facility], [address] LAB Glucose [Mass/Vol] 170 mg/dL High 70 - 100 mg/dL [facility] Work Phone: Comment on above: Test performed by gl ucose meter. Results may be 10%-15% lower than serum/plasma values. (CLIA ID [id number]) Interpretation and review of laboratory results Abnormal [facility] Work Phone: [phone] Test Performed by [facility], [address] LAB [facility] Work Phone: POCT GlucoseOrdered By: Mli arciniegal Eli on 03-10-2022 Glucose [Mass/Vol] 143 mg/dL High 70 - 100 mg/dL [facility] Work Phone: Comment on above: Test performed by ucose meter. Results may be 10%-15% lower than serum/plasma values. (CLIA ID [id number]) Interpretation and review of laboratory results Abnormal [facility] Work Phone: [facility] Work Phone: PROTIME/INR & PTTon 03-10-20 22 aPTT Coag (Bld) [Time] 40.6 s High 20 - 30.5 s [facility] Comment on above: NOTE: The therapeuti c time for Heparin anticoagulation, based on Xa activity inhibition, is an APTT of 46-80 seconds. INR Coag (Bld) [Relative time] 3.4 {INR} High [facility] Comment on above: Recommended Anticoag ulant [...] Interpretation and review of laboratory results Abnormal [facility] PT Coag (PPP) [Time] 34 s High 9 - 12 s [facility] Comment on above: . Test Performed by [facility], [address], [place], [place] [address] [facility] Protime AND APTTon 2 aPTT Coag (Bld) [Time] 40.6 s High 20.0-30.5 [facility] Comment on above: Result Comment: NOTE : The therapeutic time for Heparin anticoagulation, based on Xa activity inhibition, is an APTT of 46-80 seconds. Performed By: #### P T/AP, BMP3, HEMDF #### [facility] [address] [place] [address] INR 3.4 High 0.9-1.1 [facility] Comment on above: Result Comment: Rajiv [...] By: #### P T/AP, BMP3, HEMDF #### [facility] [address] [place] [address] PT Coag (PPP) [Time] 34.0 s High 9.0-12.0 [facility] Comment on above: Result Comment: . Performed By: #### P T/AP, BMP3, HEMDF #### [facility] [address] [place] [address] Basic Metabolic Panelon - Anion gap [Moles/Vol] 4 mmol/L Normal 3-13 [facility] Comment on above: Performed By: #### P T/AP, BMP3, HEMDF #### [facility] [address] [place] [address] Calcium [Mass/Vol] 7.7 mg/dL Low 8.4-10.4 [facility] Comment on above: Performed By: #### P T/AP, BMP3, HEMDF #### [facility] [address] [place] [address] CO2 [Moles/Vol] 25 mmol/L Normal 22-30 [facility] Comment on above: Performed By: #### P T/AP, BMP3, HEMDF #### [facility] [address] [place] [address] Glucose [Mass/Vol] 84 mg/dL Normal 70-100 [facility] Comment on above: Performed By: #### P T/AP, BMP3, HEMDF #### [place] [address] [place] [address] Urea nitrogen [Mass/Vol] 14 mg/dL Normal 9-20 [facility] Comment on above: Performed By: #### P T/AP, BMP3, HEMDF #### [facility] [address] [place] [address] Creatinine [Mass/Vol] 0.85 mg/dL Normal 0.52-1.25 [facility] Comment on above: Performed By: #### P T/AP, BMP3, HEMDF #### [facility] [address] [place] [address] GFR/1.73 sq M.predicted among blacks MDRD (S/P/Bld) [Vol rate/Area] 80.1 mL/min/{1.73_m2} Normal >60 [facility] Comment on above: Performed By: #### P T/AP, BMP3, HEMDF #### [facility] [address] [place] [address] GFR/1.73 sq M.predicted among non-blacks MDRD (S/P/Bld) [Vol rate/Area] 69.1 mL/min/{1.73_m2} Normal >60 [facility] Comment on above: Result Comment: KDIG [...] By: #### P T/AP, BMP3, HEMDF #### [facility] [address] [place] [address] Chloride [Moles/Vol] 106 mmol/L Normal 98-107 [facility] Comment on above: Performed By: #### P T/AP, BMP3, HEMDF #### [facility] [address] [place] [address] Potassium [Moles/Vol] 3.9 mmol/L Normal 3.5-5.1 [facility] Comment on above: Performed By: #### P T/AP, BMP3, HEMDF #### [facility] [address] [place] [address] Sodium [Moles/Vol] 135 mmol/L Normal 135-145 [facility] Comment on above: Performed By: #### P T/AP, BMP3, HEMDF #### [facility] [address] [place] [address] Basic Metabolic Panel w/ Ref uriel to MGon 03-09-2022 Anion gap [Moles/Vol] 4 mmol/L 3 - 13 mmol/L [facility] Calcium [Mass/Vol] 7.7 mg/dL Low 8.4 - 10. 4 mg/dL [facility] Chloride [Moles/Vol] 106 mmol/L 98 - 10 7 mmol/L [facility] CO2 [Moles/Vol] 25 mmol/L 22 - 30 mmol/L [facility] Creatinine [Mass/Vol] 0.85 mg/dL 0.52 - 1.25 mg/dL [facility] EGFR IF NonAfrican Montenegrin 69.1 mL/min 60 - PINF mL/min [facility] Comment on above: KDIGO guidelines pro [...] - 20 mg/dL [facility] Test Performed by [facility], [address] [place], [place] [id number] [place] [address] LAB [facility] CBC with Auto Differentialon 03-09-2022 [...] [Ratio] 13.9 % 11.5 - 14.5 % [facility] Platelet mean volume (Bld) [Entitic vol] 8.4 fL 7.4 - 12.4 fL [facility] Comment on above: MPV is a calculated measurement using platelet volume ratio. Platelets (Bld) [#/Vol] 102 10*3/uL Low 140 - 440 10*3/uL [facility] RBC (Bld) [#/Vol] 3.48 10*6/uL Low 3.8 - 5.2 10*6/uL [facility] WBC (Bld) [#/Vol] 5.5 10*3/uL 3.6 - 10.7 10*3/uL [facility] Test Performed by [facility], [address] [place], [place] [id number] [place] [address] LAB [facility] Glucose,Bedsideon 03-09-2022 Glucose [Mass/Vol] 186 mg/dL High [address] Comment on above: Result Comment: Test performed by glucose meter. Results may be 10%-15% lower than serum/plasma values. (CLIA ID [id number]) Performed By: #### P T/AP, BMP3, HEMDF #### [facility] [address] [place] [address] Glucose [Mass/Vol] 139 mg/dL High [address] [place] [address] Comment on above: Result Comment: Test performed by glucose meter. Results may be 10%-15% lower than serum/plasma values. (CLIA ID [id number]) Performed By: #### P T/AP, BMP3, HEMDF #### [facility] [address] [place] [address] Glucose [Mass/Vol] 160 mg/dL High [address] [place] [address] Comment on above: Result Comment: Test performed by glucose meter. Results may be 10%-15% lower than serum/plasma values. (CLIA ID [id number]) Performed By: #### P T/AP, BMP3, HEMDF #### [facility] [address] [place] [address] Glucose [Mass/Vol] 96 mg/dL Normal 70-100 [facility] Comment on above: Result Comment: Test performed by glucose meter. Results may be 10%-15% lower than serum/plasma values. (CLIA ID [id number]) Performed By: #### B GLU #### [facility] [address] [place] [address] Hemoglobin A1Con 03-09-2022 Glucose [Mass/Vol] 151 mg/dL Normal [facility] Comment on above: Performed By: #### B GLU #### [facility] [address] [place] [address] HbA1c (Bld) [Mass fraction] 6.9 % Abnormal [facility] Comment on above: Result Comment: Norm al less than 5.7% Prediabetes 5.7% to 6.4% Diabetes 6.5% or higher --HgbA1C levels may not be accurate in patients who have renal disease, received recent blood transfusions, are anemic, or who have dyshemoglobinemia. Performed By: #### B GLU #### [facility] [address] [place] [address] Hemoglobin A1con 03-09-2022 HbA1c (Bld) [Mass fraction] 6.9 % Abnormal [facility] Comment on above: Normal less than 5.7 % Prediabetes 5.7% to 6.4% Diabetes 6.5% or higher --HgbA1C levels may not be accurate in patients who have renal disease, received recent blood transfusions, are anemic, or who have dyshemoglobinemia. Interpretation and review of laboratory results Abnormal [facility] Magnesium [Mass/Vol] 151 mg/dL [facility] A Test Performed by [facility], [address] [place], [place] [id number] [place] [address] LAB [facility] Hemogram w/ Autodiffon 03-09 Abs Baso Cnt 0.0 10*3/uL Normal 0.0-0.2 [facility] Comment on above: Performed By: #### P T/AP, BMP3, HEMDF #### [facility] [address] [place] [address] Abs Neutrophile Cnt 4.1 10*3/uL Normal 1.8-7.0 [facility] Comment on above: Performed By: #### P T/AP, BMP3, HEMDF #### [facility] [address] [place] [address] Basophils/100 WBC (Bld) 0.6 % Normal 0.0-2.0 [facility] Comment on above: Performed By: #### P T/AP, BMP3, HEMDF #### [facility] [address] [place] [address] Eosinophils (Bld) [#/Vol] 0.1 10*3/uL Normal 0.0-0.5 [facility] Comment on above: Performed By: #### P T/AP, BMP3, HEMDF #### [facility] [address] [place] [address] Eosinophils/100 WBC (Bld) 1.6 % Normal 1.0-6.0 [facility] Comment on above: Performed By: #### P T/AP, BMP3, HEMDF #### [facility] [address] [place] [address] Erythrocyte distribution width (RBC) [Ratio] 13.9 % Normal 11.5-14.5 [facility] Comment on above: Performed By: #### P T/AP, BMP3, HEMDF #### [facility] [address] [place] [address] Granulocytes/100 WBC (Bld) 74.6 % Normal 40.0-80.0 [facility] Comment on above: Performed By: #### P T/AP, BMP3, HEMDF #### [facility] [address] [place] [address] Hematocrit (Bld) [Volume fraction] 31.8 % Low 35.0-47.0 [facility] Comment on above: Performed By: #### P T/AP, BMP3, HEMDF #### [facility] [address] [place] [address] Hemoglobin (Bld) [Mass/Vol] 11.2 g/dL Low 11.7-16.0 [facility] Comment on above: Performed By: #### P T/AP, BMP3, HEMDF #### [facility] [address] [place] [address] Lymphocytes (Bld) [#/Vol] 0.9 10*3/uL Low 1.0-4.3 [facility] Comment on above: Performed By: #### P T/AP, BMP3, HEMDF #### [facility] [address] [place] [address] Lymphocytes/100 WBC (Bld) 16.3 % Low 20.0-40.0 [facility] Comment on above: Performed By: #### P T/AP, BMP3, HEMDF #### [facility] [address] [place] [address] MCH (RBC) [Entitic mass] 32.2 pg Normal 26.0-34.0 [facility] Comment on above: Performed By: #### P T/AP, BMP3, HEMDF #### [facility] [address] [place] [address] MCHC 35.2 % Normal 32.0-36.0 [facility] Comment on above: Performed By: #### P T/AP, BMP3, HEMDF #### [facility] [address] [place] [address] MCV (RBC) [Entitic vol] 91.4 fL Normal 79.0-98.0 [facility] Comment on above: Performed By: #### P T/AP, BMP3, HEMDF #### [facility] [address] [place] [address] Monocytes (Bld) [#/Vol] 0.4 10*3/uL Normal 0.0-0.8 [facility] Comment on above: Performed By: #### P T/AP, BMP3, HEMDF #### [facility] [address] [place] [address] Monocytes/100 WBC (Bld) 6.9 % Normal 2.0-10.0 [facility] Comment on above: Performed By: #### P T/AP, BMP3, HEMDF #### [facility] [address] [place] [address] Platelet mean volume (Bld) [Entitic vol] 8.4 fL Normal 7.4-12.4 [facility] Comment on above: Result Comment: MPV is a calculated measurement using platelet volume ratio. Performed By: #### P T/AP, BMP3, HEMDF #### [facility] [address] [place] [address] Platelets (Bld) [#/Vol] 102 10*3/uL Low 140-440 [facility] Comment on above: Performed By: #### P T/AP, BMP3, HEMDF #### [facility] [address] [place] [address] RBC (Bld) [#/Vol] 3.48 10*6/uL Low 3.80-5.20 [facility] Comment on above: Performed By: #### P T/AP, BMP3, HEMDF #### [facility] [address] [place] [address] WBC (Bld) [#/Vol] 5.5 10*3/uL Normal 3.6-10.7 [facility] Comment on above: Performed By: #### P T/AP, BMP3, HEMDF #### [facility] [address] [place] [address] POCT GlucoseOrdered By: Blayne Villalobos on 03-09-2022 Glucose [Mass/Vol] 186 mg/dL High 70 - 100 mg/dL [facility] Work Phone: Comment on above: Test performed by gl ucose meter. Results may be 10%-15% lower than serum/plasma values. (CLIA ID [id number]) Interpretation and review of laboratory results Abnormal [facility] Work Phone: [facility] Work Phone: POCT Glucoseon 03-09-2022 Test Performed by [facility], [address] [place], [place] [id number] [place] [address] LAB Glucose [Mass/Vol] 139 mg/dL High 70 - 100 mg/dL [facility] Work Phone: Comment on above: Test performed by gl ucose meter. Results may be 10%-15% lower than serum/plasma values. (CLIA ID [id number]) Interpretation and review of laboratory results Abnormal [facility] Work Phone: Test Performed by [facility], [address] LAB [facility] Work Phone: Test Performed by [facility], [address] LAB Glucose [Mass/Vol] 96 mg/dL 70 - 100 mg/dL [facility] Work Phone: Comment on above: Test performed by gl ucose meter. Results may be 10%-15% lower than serum/plasma values. (CLIA ID [id number]) Test Performed by [facility], [address], [address] LAB [facility] Work Phone: POCT GlucoseOrdered By: Ines Choi on 03-09-2022 Glucose [Mass/Vol] 160 mg/dL High 70 - 100 mg/dL [facility] Comment on above: Test performed by gl ucose meter. Results may be 10%-15% lower than serum/plasma values. (CLIA ID [id number]) Interpretation and review of laboratory results Abnormal [facility] PROTIME/INR & PTTon 03-09-20 aPTT Coag (Bld) [Time] 40.6 s High [...] 24.5 s High 9 - 12 s [facility] Comment on above: . Test Performed by [facility], [address] [facility] Protime AND APTTon aPTT Coag (Bld) [Time] 40.6 s High 20.0-30.5 [facility] Comment on above: Result Comment: NOTE : The therapeutic time for Heparin anticoagulation, based on Xa activity inhibition, is an APTT of 46-80 seconds. Performed By: #### P T/AP, BMP3, HEMDF #### [facility] [address] [place] [address] INR 2.4 High 0.9-1.1 [facility] Comment on above: Result Comment: Rajiv [...] By: #### P T/AP, BMP3, HEMDF #### [facility] [address] [place] [address] PT Coag (PPP) [Time] 24.5 s High 9.0-12.0 [facility] Comment on above: Result Comment: . Performed By: #### P T/AP, BMP3, HEMDF #### [facility] [address] [place] [address] TSHon 03-09-2022 TSH Qn 3.493 u[IU]/mL 0.465 - 4.68 u[IU]/mL [facility] Test Performed by [facility], [address] LAB [facility] Thyroid Stim. Hormoneon 02-20 Thyroid Stim. Hormone 3.493 u[IU]/mL Normal 0.46 5-4.68 0 [facility] Comment on above: Performed By: #### B GLU #### [facility] [address] [place] [address] Vancomycinon 03-09-2022 Vancomycin 12.3 ug/mL Low 15.0-20.0 [facility] Comment on above: Result Comment: . Performed By: #### P T/AP, BMP3, HEMDF #### [facility] [address] [place] [address] Vancomycin Level, Randomon 0 03-09-2022 Interpretation and review of laboratory results Abnormal [facility] Vancomycin 12.3 ug/mL Low 15 - 20 ug/mL [facility] Comment on above: . Test Performed by [facility], [address] [place] [address] [facility] LAB [facility] Basic Metabolic Panelon 09- Anion gap [Moles/Vol] 4 mmol/L Normal 3-13 [facility] Comment on above: Performed By: #### P T/AP, BMP3, HEMDF #### [facility] [address] [place] [address] Calcium [Mass/Vol] 8.4 mg/dL Normal 8.4-10.4 [facility] Comment on above: Performed By: #### P T/AP, BMP3, HEMDF #### [facility] [address] [place] [address] CO2 [Moles/Vol] 27 mmol/L Normal 22-30 [facility] Comment on above: Performed By: #### P T/AP, BMP3, HEMDF #### [facility] [address] [place] [address] Creatinine [Mass/Vol] 0.95 mg/dL Normal 0.52-1.25 [facility] Comment on above: Performed By: #### P T/AP, BMP3, HEMDF #### [facility] [address] [place] [address] GFR/1.73 sq M.predicted among blacks MDRD (S/P/Bld) [Vol rate/Area] 70.0 mL/min/{1.73_m2} Normal >60 [facility] Comment on above: Performed By: #### P T/AP, BMP3, HEMDF #### [facility] [address] [place] [address] GFR/1.73 sq M.predicted among non-blacks MDRD (S/P/Bld) [Vol rate/Area] 60.4 mL/min/{1.73_m2} Normal >60 [facility] Comment on above: Result Comment: KDIG [...] By: #### P T/AP, BMP3, HEMDF #### [facility] [address] [place] [address] Glucose [Mass/Vol] 117 mg/dL High 70-100 [facility] Comment on above: Performed By: #### P T/AP, BMP3, HEMDF #### [facility] [address] [place] [address] Urea nitrogen [Mass/Vol] 16 mg/dL Normal 9-20 [facility] Comment on above: Performed By: #### P T/AP, BMP3, HEMDF #### [facility] [address] [place] [address] Chloride [Moles/Vol] 102 mmol/L Normal 98-107 [facility] Comment on above: Performed By: #### P T/AP, BMP3, HEMDF #### [facility] [address] [place] [address] Potassium [Moles/Vol] 4.5 mmol/L Normal 3.5-5.1 [facility] Comment on above: Performed By: #### P T/AP, BMP3, HEMDF #### [facility] [address] [place] [address] Sodium [Moles/Vol] 133 mmol/L Low 135-145 [facility] Comment on above: Performed By: #### P T/AP, BMP3, HEMDF #### [facility] [address] [place] [address] Anion gap [Moles/Vol] 4 mmol/L 3 - 13 mmol/L [facility] Calcium [Mass/Vol] 8.4 mg/dL 8.4 - 10. 4 mg/dL [facility] Chloride [Moles/Vol] 102 mmol/L 98 - 10 7 mmol/L [facility] CO2 [Moles/Vol] 27 mmol/L 22 - 30 mmol/L [facility] Creatinine [Mass/Vol] 0.95 mg/dL 0.52 - 1.25 mg/dL [facility] EGFR IF NonAfrican Montenegrin 60.4 mL/min 60 - PINF mL/min [facility] [...] - 20 mg/dL [facility] Test Performed by [facility], [address], [place], [place] [address] [facility] CBC with Auto [...] [Mass/Vol] 12.6 g/dL 11.7 - 16 g/dL [facility] Interpretation and review of laboratory results Abnormal [...] [#/Vol] 3.96 10*6/uL 3.8 - 5.2 10*6/uL [facility] WBC (Bld) [#/Vol] 8.7 10*3/uL 3.6 - 10.7 10*3/uL [facility] Test Performed by [facility], [address] [place] [address] [facility] CR Ankle 3+ Views Lefton CR Ankle 3+ Views Left Patient Name: RANDOLPH HUNTER Diagnostic Radiology ACCESSION EXAM DATE/TIME PROCEDURE ORDERING PROVIDER [id number] 03/08/2022 16:53 EDT CR Ankle 3+ Views Left JOHN LEZAMA LOUANN B CPT code 26159 Reason For Exam (CR Ankle 3+ Views [...] arterial atherosclerotic changes. Report Dictated on Workstation: [employer] Final Dictating Physician: HARPER ANTONIO DO, I Signed Date and Time: 03/08/2022 5:15 pm Signed by: HARPER ANTONIO DO, I Transcribed Date and Time: 03/08/2022 5:16 Normal [facility] Complete Urinalysison 2021 Appearance (U) Turbid Abnormal Clear [facility] Comment on above: Result Comment: . Performed By: #### P T/AP, BMP3, HEMDF #### [facility] [address] [place] [address] Bacteria Loaded Abnormal Negative [facility] Comment on above: Result Comment: . Performed By: #### P T/AP, BMP3, HEMDF #### [facility] [address] [place] [address] Bilirubin,Urine Negative Normal Negative [facility] Comment on above: Result Comment: . Performed By: #### P T/AP, BMP3, HEMDF #### [facility] [address] [place] [address] Color (U) Light-Yellow Normal Lt. Yellow [facility] Comment on above: Result Comment: . Performed By: #### P T/AP, BMP3, HEMDF #### [facility] [address] [place] [address] Glucose Ql (U) Normal Normal Normal (<70) [facility] Comment on above: Result Comment: . Performed By: #### P T/AP, BMP3, HEMDF #### [facility] [address] [place] [address] Ketone,Urine Negative Normal Negative [facility] Comment on above: Result Comment: . Performed By: #### P T/AP, BMP3, HEMDF #### [facility] [address] [place] [address] Leukocytes,Urine 500 Elvi/uL Abnormal Negative [facility] Comment on above: Result Comment: . Performed By: #### P T/AP, BMP3, HEMDF #### [facility] [address] [place] [address] Mucous Threads Few Normal Negative [facility] Comment on above: Result Comment: . Performed By: #### P T/AP, BMP3, HEMDF #### [facility] [address] [place] [address] Nitrites,Urine Positive Abnormal Negative [facility] Comment on above: Result Comment: . Performed By: #### P T/AP, BMP3, HEMDF #### [facility] [address] [place] [address] Non-Squamous Epithelial < 1 Abnormal Negative [facility] Comment on above: Result Comment: . Performed By: #### P T/AP, BMP3, HEMDF #### [facility] [address] [place] [address] Occult Blood,Urine 0.06 mg/dL Abnormal Negative [facility] Comment on above: Result Comment: . Performed By: #### P T/AP, BMP3, HEMDF #### [facility] [address] [place] [address] pH,Urine 6.0 Normal 5.0-8.0 [facility] Comment on above: Result Comment: . Performed By: #### P T/AP, BMP3, HEMDF #### [facility] [address] [place] [address] Protein (U) [Mass/Vol] 20 mg/dL Abnormal Negative [facility] Comment on above: Result Comment: . Performed By: #### P T/AP, BMP3, HEMDF #### [facility] [address] [place] [address] RBC, Urine 3 - 5 Abnormal 0-2 [facility] Comment on above: Result Comment: . Performed By: #### P T/AP, BMP3, HEMDF #### [facility] [address] [place] [address] Specific [place],Urine 1.014 Normal 1.005 - 1.030 [facility] Comment on above: Result Comment: . Performed By: #### P T/AP, BMP3, HEMDF #### [facility] [address] [place] [address] Squamous Epithelial 0 - 2 Normal 3-5 [facility] Comment on above: Result Comment: . Performed By: #### P T/AP, BMP3, HEMDF #### [facility] [address] [place] [address] Urobilinogen,Urine Normal Normal Normal (0-1) [facility] Comment on above: Result Comment: . Performed By: #### P T/AP, BMP3, HEMDF #### [facility] [address] [place] [address] WBC, Urine 51 - 100 Abnormal 0-5 [facility] Comment on above: Result Comment: . Performed By: #### P T/AP, BMP3, HEMDF #### [employer] [address] [place] [address] ED Provider Noteon ED Provider Note SHB [...] she did have a fall at her fpc this morning but did not hit her [...] mouth daily CALCIUM CARBONATE 600MG W/ VITAMIN [id number] Med cyanocobalamin 1000 MCG/ML injection Inject 1,000 [...] Response: Oriented Best Motor Response: Obeys commands [place] Coma Scale Score: 15 PHYSICAL EXAM (up [...] Exam Kaycee (more content not included)... Normal [facility] Glucose,Bedsideon 03-08-2022 Glucose [Mass/Vol] 112 mg/dL High 70-100 [facility] Comment on above: Result Comment: Test performed by glucose meter. Results may be 10%-15% lower than serum/plasma values. (CLIA ID [id number]) Performed By: #### P T/AP, BMP3, HEMDF #### [facility] [address] [place] [address] Glucose [Mass/Vol] 81 mg/dL Normal 70-100 [facility] Comment on above: Result Comment: Test performed by glucose meter. Results may be 10%-15% lower than serum/plasma values. (CLIA ID [id number]) Performed By: #### P T/AP, BMP3, HEMDF #### [facility] [address] [place] [address] Hemogram w/ Autodiffon 03-08 Abs Baso Cnt 0.0 10*3/uL Normal 0.0-0.2 [facility] Comment on above: Performed By: #### P T/AP, BMP3, HEMDF #### [facility] [address] [place] [address] Abs Neutrophile Cnt 7.5 10*3/uL High 1.8-7.0 [facility] Comment on above: Performed By: #### P T/AP, BMP3, HEMDF #### [facility] [address] [place] [place] [address] Basophils/100 WBC (Bld) 0.1 % Normal 0.0-2.0 [facility] Comment on above: Performed By: #### P T/AP, BMP3, HEMDF #### [facility] [address] [place] [address] Eosinophils (Bld) [#/Vol] 0.0 10*3/uL Normal 0.0-0.5 [facility] Comment on above: Performed By: #### P T/AP, BMP3, HEMDF #### [facility] [address] [place] [address] Eosinophils/100 WBC (Bld) 0.2 % Low 1.0-6.0 [facility] Comment on above: Performed By: #### P T/AP, BMP3, HEMDF #### [facility] [address] [place] [address] Erythrocyte distribution width (RBC) [Ratio] 14.1 % Normal 11.5-14.5 [facility] Comment on above: Performed By: #### P T/AP, BMP3, HEMDF #### [place] [address] [place] [address] Granulocytes/100 WBC (Bld) 86.4 % High 40.0-80.0 [facility] Comment on above: Performed By: #### P T/AP, BMP3, HEMDF #### [facility] [address] [place] [address] Hematocrit (Bld) [Volume fraction] 36.9 % Normal 35.0-47.0 [facility] Comment on above: Performed By: #### P T/AP, BMP3, HEMDF #### [facility] [address] [place] [address] Hemoglobin (Bld) [Mass/Vol] 12.6 g/dL Normal 11.7-16.0 [facility] Comment on above: Performed By: #### P T/AP, BMP3, HEMDF #### [facility] [address] [place] [address] Lymphocytes (Bld) [#/Vol] 0.7 10*3/uL Low 1.0-4.3 [facility] Comment on above: Performed By: #### P T/AP, BMP3, HEMDF #### [facility] [address] [place] [address] Lymphocytes/100 WBC (Bld) 8.3 % Low 20.0-40.0 [facility] Comment on above: Performed By: #### P T/AP, BMP3, HEMDF #### [facility] [address] [place] [address] MCH (RBC) [Entitic mass] 31.9 pg Normal 26.0-34.0 [facility] Comment on above: Performed By: #### P T/AP, BMP3, HEMDF #### [facility] [address] [place] [address] MCHC 34.3 % Normal 32.0-36.0 [facility] Comment on above: Performed By: #### P T/AP, BMP3, HEMDF #### [facility] [address] [place] [address] MCV (RBC) [Entitic vol] 93.2 fL Normal 79.0-98.0 [facility] Comment on above: Performed By: #### P T/AP, BMP3, HEMDF #### [facility] [address] [place] [address] Monocytes (Bld) [#/Vol] 0.4 10*3/uL Normal 0.0-0.8 [facility] Comment on above: Performed By: #### P T/AP, BMP3, HEMDF #### [facility] [address] [place] [address] Monocytes/100 WBC (Bld) 5.0 % Normal 2.0-10.0 [facility] Comment on above: Performed By: #### P T/AP, BMP3, HEMDF #### [facility] [address] [place] [address] Platelet mean volume (Bld) [Entitic vol] 8.9 fL Normal 7.4-12.4 [facility] Comment on above: Result Comment: MPV is a calculated measurement using platelet volume ratio. Performed By: #### P T/AP, BMP3, HEMDF #### [facility] [address] [place] [address] Platelets (Bld) [#/Vol] 132 10*3/uL Low 140-440 [facility] Comment on above: Performed By: #### P T/AP, BMP3, HEMDF #### [facility] [address] [place] [address] RBC (Bld) [#/Vol] 3.96 10*6/uL Normal 3.80-5.20 [facility] Comment on above: Performed By: #### P T/AP, BMP3, HEMDF #### [facility] [address] [place] [address] WBC (Bld) [#/Vol] 8.7 10*3/uL Normal 3.6-10.7 [facility] Comment on above: Performed By: #### P T/AP, BMP3, HEMDF #### [facility] [address] [place] [address] Lactate, Sepsison 03-08-2022 Lactate [Moles/Vol] 1.7 mmol/L 0.7 - 2 mmol/L [facility] Test Performed by [facility] [address] LAB [facility] Lactic Acid, Sepsison 2021 Lactate [Moles/Vol] 1.7 mmol/L Normal 0.7-2.0 [facility] Comment on above: Performed By: #### P T/AP, BMP3, HEMDF #### [facility] [address] [place] [address] POCT GlucoseOrdered By: Jossy Moncada on 03-08-2022 Glucose [Mass/Vol] 112 mg/dL High 70 - 100 mg/dL [facility] Work Phone: Comment on above: Test performed by gl ucose meter. Results may be 10%-15% lower than serum/plasma values. (CLIA ID [id number]) Interpretation and review of laboratory results Abnormal [facility] Work Phone: [facility] Work Phone: POCT Glucoseon 03-08-2022 Test Performed by [facility], [address] LAB Test Performed by [facility], [address] LAB POCT GlucoseOrdered By: Yaakov Whitehead on 03-08-2022 Glucose [Mass/Vol] 81 mg/dL 70 - 100 mg/dL [facility] Work Phone: Comment on above: Test performed by gl ucose meter. Results may be 10%-15% lower than serum/plasma values. (CLIA ID [id number]) [facility] Work Phone: Prothrombin Timeon 2 INR 2.3 High 0.9-1.1 [facility] Comment on above: Result Comment: Rajiv [...] By: #### P T/AP, BMP3, HEMDF #### [facility] [address] [place] [address] PT Coag (PPP) [Time] 23.8 s High 9.0-12.0 [facility] Comment on above: Result Comment: . Performed By: #### P T/AP, BMP3, HEMDF #### [facility] [address] [place] [address] Protime-INRon 03-08-2022 INR Coag (Bld) [Relative time] 2.3 {INR} High [facility] Comment on above: Recommended Anticoag ulant [...] Interpretation and review of laboratory results Abnormal [facility] PT Coag (PPP) [Time] 23.8 s High 9 - 12 s [facility] Comment on above: . Test Performed by [facility], [address] [place], [place] [address] [facility] Urinalysison 03-08-2022 Appearance (U) Turbid [...] /[HPF] [facility] Comment on above: . Specific [place], Urine 1.014 [facility] Comment on above: . Squam Epithel, UA 0-2 3 - 5 /[HPF] [facility] Comment on above: . Urobilinogen, Urine Normal Normal (0-1) mg/dL [facility] Comment on above: . WBC, UA /[HPF] Abnormal 0 - 5 /[HPF] [facility] Comment on above: . Test Performed by [facility], 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 Report Dictated on Workstation: [id number] --- Final --- Dictating Physician: HARPER ANTONIO DO, I Signed Date and Time: 03/08/2022 5:15 pm Signed by: HARPER ANTONIO DO, I Transcribed Date and Time: 03/08/2022 5:16 [facility] Work Phone: Radiology Study observation (narrative) [facility] Work Phone: XR ANKLE LEFT (MIN 3 VIEWS)O rdered By: Harper Antonio on 03-08-2022 [facility] Work Phone: PT panel Coag (PPP)on 2021 INR Coag (Bld) [Relative time] 2.3 (EXT) 2.0 - 3.0 [facility] INRon 10-29-2021 INR Coag (Bld) [Relative time] [facility] PT panel Coag (PPP)on 2021 INR Coag (Bld) [Relative time] 2.1 {INR} [facility] DXA-AXIAL SKELETONon 022 [facility] PT panel Coag (PPP)on 2021 INR Coag (Bld) [Relative time] 2.1(EXT) 2.0 - 3.0 [facility] PT panel Coag (PPP)on 2021 INR Coag (Bld) [Relative time] 2.6(EXT) 2.0 - 3.0 [facility] PT panel Coag (PPP)on 2021 INR Coag (Bld) [Relative time] 2.2 (ext) [facility] Basophil percentageon 2021 Bilirubin [Mass/Vol] 0.40 mg/dL 0.20-1.00 [facility] Work Phone: Comment on above: For patients on eltr ombopag therapy, use of Dimension [place] TBIL is not recommended. Cholesterol [Mass/Vol] 142 mg/dL <200 [facility] Comment on above: <200 mg/dL Desirable 200-240 mg/dL Borderline >240 mg/dL High Risk Protein [Mass/Vol] 7.5 g/dL 6.4-8.[address] [facility] Work Phone: Triglyceride [Mass/Vol] 156 mg/dL [facility] Comment on above: The drugs N-Acetylcy steine and Metamizole may falsely depress this assay.Serum Triglycerides Reference Interval Normal <150 mg/dL Borderline high 150 - 199 mg/dL High 200 - 499 mg/dL Very High > or = 500 mg/dL Direct bilirubinon 2 Bilirubin.direct [Mass/Vol] 0.12 mg/dL 0.00-0.30 [facility] Work Phone: LIPID PANEL (EXTERNAL)on HDC-L 41 mg/dL 41 mg/dL [facility] LDL Chol, calculated 31 MG/DL 130 MG/DL [facility] - Chemistry and C hemistry - challengeon 09-16-2021 ALP [Catalytic activity/Vol] 58 U/L 45-117 [facility] Work Phone: ALT [Catalytic activity/Vol] 18 U/L 13-56 [facility] Work Phone: Globulin (S) [Mass/Vol] 4.1 g/dL 2.2-4.2 [facility] Work Phone: MICROALBUMIN/CREATININE UR W RATIO (EXTERNAL)on 09-16-2021 Albumin/Creat Ratio 9.4 [facility] Creatinine Urine 158 [facility] Microalbumin, Random urine 14.9 [facility] No Panel Informationon 09-16 Urine Microalbumin/Creatini ne Ratio 9.4 mg/g CRE <30 [facility] Work Phone: Serum or plasma albumin aura urement (mass/volume)on 09-16-2021 Albumin [Mass/Vol] 3.4 g/dL 3.2-5.[address] [facility] Work Phone: Serum or plasma cholesterol in HDL measurement (mass/volume)on 09-16-2021 Cholesterol in HDL [Mass/Vol] 41 mg/dL [facility] Work Phone: Comment on above: The drugs N-Acetylcy steine and Metamizole may falsely depress this assay. Reference Range HDL <40 mg/dL Low HDL Cholesterol HDL >or= 60 mg/dL High HDL Cholesterol Serum or plasma cholesterol in VLDL measurement (mass/volume)on 09-16-2021 Cholesterol in VLDL [Mass/Vol] 31 mg/dL 5-40 [facility] Work Phone: Serum or plasma low density lipoprotein (LDL) cholesterol measurement (mass/volume)on 09-16-2021 Cholesterol in LDL [Mass/Vol] 70 mg/dL 0-130 [facility] Work Phone: Thin prep Papanicolaou smear with manual screeningon 09-16-2021 Thin prep Papanicolaou smear with manual screening 22 U/L 15-37 [facility] Work Phone: Thin prep Papanicolaou smear with manual screening 14.9 mg/L NO RANGE EST. [facility] Work Phone: Urine creatinine measurement (mass/volume)on 09-16-2021 Creatinine (U) [Mass/Vol] 158.00 mg/dL NO RANGE EST. [facility] Work Phone: PT panel Coag (PPP)on 2021 INR Coag (Bld) [Relative time] 1.9 (EXT) 2.0 - 3.0 [facility] XR Shoulder - right 3 Viewso n 01-29-2021 IMPRESSION: 1. Stable mild acromioclavicular degenerative changes. Mineral Resources Inspector: CEM Transcribe Date/Time: Jan 29 2021 2:19P [...] mild hypertrophic osteoarthrosis. DIVISION OF RADIOLOGY Provider, [facility] - 01/29/2021 * * *Final Report* * [...] IMPRESSION: 1. Stable mild acromioclavicular degenerative changes. Mineral Resources Inspector: CEM Transcribe Date/Time: Jan 29 2021 2:19P Dictated by : MIN GARCIA MD This examination was interpreted and the report reviewed and electronically signed by: MIN GARCIA MD on Jan 29 2021 2:21PM EST [facility] Radiology Study observation (narrative) [facility] XR Shoulder - right 3 ViewsO rdered By: Ccf Provider on 01-29-2021 [facility] CNOVon 08-12-2017 CNOV Office Visit (AGCARDWST) -------RANDOLPH HUNTER ([id number]) 1950 FDate Time Provider Department08/12/17 1:00 PM [...] - metBeta nisha for ASHD with prior [place] or prior LVEFANDlt;40 (NQF 0070) - metBeta [...] with treatment plan.This note was generated using [employer] voice recognition system, and there may besome [...] of metoprolol.Electronically Signed:David Erwin MDFeuary 2017 1:17 [facility]: Lin Ashley MD 08/12/2017 1:17 PM [...] programs in your area.Referring Provider: DAVID ERWIN [[id number]]Allergies As of Date: 08/12/2017 Noted Allergy ReactionPHENERGAN [...] Comments: removes skinDate Reviewed: 08/12/2017Reviewed by: Gui GrissomRn) NAWAF Gallego - Fully AssessedReason for Visit: Follow Up [171] Cmt: 6 monthPrimary Visit Diagnosis:ASHD (arteriosclerotic heart disease) [I25.10] Other Visit Diagnosis:Hypertension, essential [I10]Order(s):metoprolol succinate ER (TOPROL XL) 100 mg Ar08Xydp 1 tablet by mouth once daily.Disp: 90 [...] the following areas and commit to making penitentiary changes. EAT A WHOLE FOOD, PLANT BASED [...] SmartForms filed during this visit:Extended VitalsEncounter Number: [id number] Status:Closed by DAVID ERWIN MD on 08/12/17 [facility] PROGRESSon 08-12-2017 PROGRESS HNO ID: [id number] thor: David Ricardo Elver: (none)Author Type: PhysicianType: Progress NotesFiled: 08/12/2017 2:54 PMNote Text:PERTINENT CARDIAC HISTORYASHD - PCI LAD 2003, 2004 and PCI Cx 2007HTNHL - statin averseDMPVD - patch repairCarotid artery diseasePulmonary emboli - chronic a/cNo LOYDA-I due to low BPADHERENCE TO GUIDELINESACE-I or ARB for HF with prior LVEF<40 (NQF 0081) - metASA or Plavix for ASHD (NQF 0067) - metBeta nisha for ASHD with prior [place] or prior LVEF<40 (NQF 0070) - metBeta [...] with treatment plan.This note was generated using [employer] voice recognition system, and theremay be some [...] of metoprolol.Electronically Signed:David Erwin MDFebruary 2017 1:17 [facility]: Vishnu Coleman MD [facility] OBSOLETEon 04-06-2017 OBSOLETE Refill (AGCARDWST) -------RANDOLPH HUNTER ([id number]) 1950 [facility] Time Provider Jgocohkvpu31/16/17 DAVID ERWIN AGCARDWST During your visit today, we recorded the following information about you:Gui Gallego RN, RN 04/06/2017 1:59 PM SignedPatient phones requesting refills as follows:Pending Prescriptions Disp Refills METOPROLOL SUCCINATE ER 50 MG TABLET,EXTENDED RELEASE 24 HR 135 tablet 3 Sig: Take 1.5 tablets by mouth once daily. IRA: No Please review and advise.CHARLIE Galvezatidante has been identified by name and date [...] once daily. IRA: No Authorizing Provider: DAVID EWRIN MDAdam Gilmor, RN, RN 04/06/2017 4:42 PM [...] Status:Closed by GUI GALLEGO on 04/06/17 Normal [facility] Vital Signs Date Time Vital Sign Value Performing Clinician Zack goncalves 10-10-2024 13:29-0400 Body temperature 96.8 [degF] Travis Helbert EDITORIAL ASSISTANT.CORRUGATED FASTENER DRIVER Work Phone: [facility] 10-10-2024 13:29-0400 Diastolic blood pressure 57 mm[Hg] Travis Helbert EDITORIAL ASSISTANT.CORRUGATED FASTENER DRIVER Work Phone: [facility] 10-10-2024 13:29-0400 Heart rate 66 /min Travis Helbert EDITORIAL ASSISTANT.CORRUGATED FASTENER DRIVER Work Phone: [facility] 10-10-2024 13:29-0400 Respiratory rate 16 /min Travis Helbert EDITORIAL ASSISTANT.CORRUGATED FASTENER DRIVER Work Phone: [facility] 10-10-2024 13:29-0400 SaO2% (BldA) [Mass fraction] 97 % Travis Helbert EDITORIAL ASSISTANT.CORRUGATED FASTENER DRIVER Work Phone: [facility] 10-10-2024 13:29-0400 Systolic blood pressure 120 mm[Hg] Travis Helbert EDITORIAL ASSISTANT.CORRUGATED FASTENER DRIVER Work Phone: [facility] 10-05-2024 16:09-0400 Body temperature 97.81 [degF] Travis Helbert EDITORIAL ASSISTANT.CORRUGATED FASTENER DRIVER Work Phone: [facility] 10-05-2024 16:09-0400 Diastolic blood pressure 71 mm[Hg] Travis Helbert EDITORIAL ASSISTANT.CORRUGATED FASTENER DRIVER Work Phone: [facility] 10-05-2024 16:09-0400 Heart rate 64 /min Travis Helbert EDITORIAL ASSISTANT.CORRUGATED FASTENER DRIVER Work Phone: [facility] 10-05-2024 16:09-0400 Respiratory rate 19 /min Travis Helbert EDITORIAL ASSISTANT.CORRUGATED FASTENER DRIVER Work Phone: [facility] 10-05-2024 16:09-0400 SaO2% (BldA) [Mass fraction] 96 % Travis Helbert EDITORIAL ASSISTANT.CORRUGATED FASTENER DRIVER Work Phone: [facility] 10-05-2024 16:09-0400 Systolic blood pressure 122 mm[Hg] Travis Patterson EDITORIAL ASSISTANT.CORRUGATED FASTENER DRIVER Work Phone: [facility] 09-30-2024 13:29-0400 Body temperature 97.3 [degF] Travis Patterson EDITORIAL ASSISTANT.CORRUGATED FASTENER DRIVER Work Phone: [facility] 09-30-2024 13:29-0400 Diastolic blood pressure 64 mm[Hg] Travis Patterson EDITORIAL ASSISTANT.CORRUGATED FASTENER DRIVER Work Phone: [facility] 09-30-2024 13:29-0400 Heart rate 69 /min Travis Patterson EDITORIAL ASSISTANT.CORRUGATED FASTENER DRIVER Work Phone: [facility] 09-30-2024 13:29-0400 Respiratory rate 18 /min Travis Patterson EDITORIAL ASSISTANT.CORRUGATED FASTENER DRIVER Work Phone: [facility] 09-30-2024 13:29-0400 SaO2% (BldA) [Mass fraction] 97 % Travis Patterson EDITORIAL ASSISTANT.CORRUGATED FASTENER DRIVER Work Phone: [facility] 09-30-2024 13:29-0400 Systolic blood pressure 124 mm[Hg] Travis Patterson EDITORIAL ASSISTANT.CORRUGATED FASTENER DRIVER Work Phone: [facility] 07-09-2024 23:24-0500 Diastolic blood pressure 66 mm[Hg] BETY Jha MD Work Phone: [facility] 07-09-2024 23:24-0500 Heart rate 96 /min BETY Jha MD Work Phone: [facility] 07-09-2024 23:24-0500 Respiratory rate 20 /min BETY Jha MD Work Phone: [facility] 07-09-2024 23:24-0500 SaO2% (BldA) [Mass fraction] 98 % BETY Jha MD Work Phone: [facility] 07-09-2024 23:24-0500 Systolic blood pressure 99 mm[Hg] BETY Jha MD Work Phone: [employer] 07-09-2024 23:21-0500 Body height 157.5 cm BETY Jha MD Work Phone: [facility] 07-09-2024 23:21-0500 Body mass index (BMI) [Ratio] 39.14 kg/m2 BETY Jha MD Work Phone: [facility] 07-09-2024 23:21-0500 Body temperature 98.4 [degF] BETY Jha MD Work Phone: [facility] 07-09-2024 23:21-0500 Body weight 97.07 kg BETY Jha MD Work Phone: [facility] 02-10-2024 10:43-0400 Body temperature 97.7 [degF] Isaac Brian DO Work Phone: [employer] [facility] 01-27-2024 12:59-0400 Body temperature 97.11 [degF] Isaac Brian DO Work Phone: [facility] 01-27-2024 12:59-0400 Diastolic blood pressure 76 mm[Hg] Isaac Brian DO Work Phone: [facility] 01-27-2024 12:59-0400 Heart rate 72 /min Isaac Brian DO Work Phone: [facility] 01-27-2024 12:59-0400 Respiratory rate 18 /min Isaac Brian DO Work Phone: [facility] 01-27-2024 12:59-0400 Systolic blood pressure 126 mm[Hg] Isaac Brian DO Work Phone: [facility] 01-20-2024 14:26-0400 Body height 157.5 cm Isaac Brian DO Work Phone: [employer] [facility] 01-20-2024 14:26-0400 Body mass index (BMI) [Ratio] 38.96 kg/m2 Isaac Brian DO Work Phone: [facility] 01-20-2024 14:26-0400 Body temperature 97.2 [degF] Isaac Brian DO Work Phone: [facility] 01-20-2024 14:26-0400 Body weight 96.62 kg Isaac Chicas DO Work Phone: [facility] 01-20-2024 14:26-0400 Diastolic blood pressure 70 mm[Hg] Isaac Chicas DO Work Phone: [facility] 01-20-2024 14:26-0400 Heart rate 79 /min Isaac Chicas DO Work Phone: [facility] 01-20-2024 14:26-0400 Respiratory rate 18 /min Isaac Chicas DO Work Phone: [facility] 01-20-2024 14:26-0400 Systolic blood pressure 112 mm[Hg] Isaac Chicas DO Work Phone: [facility] 12-15-2023 22:15-0400 Diastolic blood pressure 57 mm[Hg] Gloriajasvir Bangura DO Work Phone: [facility] 12-15-2023 22:15-0400 Heart rate 64 /min Gloriajasvir Bangura DO Work Phone: [facility] 12-15-2023 22:15-0400 Respiratory rate 16 /min Gloria Willem DO Work Phone: [facility] 12-15-2023 22:15-0400 SaO2% (BldA) [Mass fraction] 98 % Gloria Willem DO Work Phone: [facility] 12-15-2023 22:15-0400 Systolic blood pressure 137 mm[Hg] Gloria Willem DO Work Phone: [facility] 12-15-2023 18:24-0400 Body height 165.1 cm Gloria Willem DO Work Phone: [facility] 12-15-2023 18:24-0400 Body mass index (BMI) [Ratio] 35.45 kg/m2 Gloria Willem DO Work Phone: [facility] 06-25-2024 18:24-0400 Body temperature 97.3 [degF] Gloria Bangura DO Work Phone: [facility] 12-15-2023 18:24-0400 Body weight 96.62 kg Gloria Bangura DO Work Phone: [facility] 07-20-2023 06:46-0500 Diastolic blood pressure 67 mm[Hg] Cuba Anna MD Work Phone: [employer] [facility] 07-20-2023 06:46-0500 Heart rate 63 /min Cuba Anna MD Work Phone: [facility] 07-20-2023 06:46-0500 Respiratory rate 16 /min Cbua Anna MD Work Phone: [facility] 07-20-2023 06:46-0500 SaO2% (BldA) [Mass fraction] 97 % Cuba Anna MD Work Phone: [facility] 07-20-2023 06:46-0500 Systolic blood pressure 148 mm[Hg] Cuba Anna MD Work Phone: [facility] 07-19-2023 18:50-0500 Body height 157.5 cm Cuba Anna MD Work Phone: [facility] 07-19-2023 18:50-0500 Body mass index (BMI) [Ratio] 43.71 kg/m2 Cuba Anna MD Work Phone: [facility] 07-19-2023 18:50-0500 Body temperature 98.01 [degF] Cuba Anna MD Work Phone: [facility] 07-19-2023 18:50-0500 Body weight 108.41 kg Cuba Anna MD Work Phone: [facility] [employer] [employer] [facility] [employer] [facility] 09-06-2022 10:13-0400 Diastolic blood pressure 75 mm[Hg] Linden Fuentes MD Work Phone: [facility] [employer] [facility] [employer] [facility] 09-06-2022 10:13-0400 Heart rate 69 /min iLnden Fuentes MD Work Phone: [facility] 09-06-2022 10:13-0400 Respiratory rate 15 /min Linden Fuentes MD Work Phone: [facility] 09-06-2022 10:13-0400 SaO2% (BldA) [Mass fraction] 100 % Linden Fuentes MD Work Phone: [facility] 09-06-2022 10:13-0400 Systolic blood pressure 143 mm[Hg] Linden Funetes MD Work Phone: [facility] 09-06-2022 05:33-0400 Body temperature 98.2 [degF] Linden Fuentes MD Work Phone: [facility] 03-12-2022 19:37-0400 Body temperature 98.71 [degF] BETY Jha MD Work Phone: [facility] 03-12-2022 19:37-0400 Diastolic blood pressure 68 mm[Hg] BETY Jha MD Work Phone: [facility] 03-12-2022 19:37-0400 Heart rate 73 /min BETY Jha MD Work Phone: [facility] 03-12-2022 19:37-0400 Respiratory rate 16 /min BETY Jha MD Work Phone: [facility] 03-12-2022 19:37-0400 SaO2% (BldA) [Mass fraction] 97 % BETY Jha MD Work Phone: [facility] 03-12-2022 19:37-0400 Systolic blood pressure 151 mm[Hg] BETY Jha MD Work Phone: [facility] 03-08-2022 20:15-0400 Body height 165.1 cm BETY Jha MD Work Phone: [facility] 03-08-2022 11:49-0400 Body mass index (BMI) [Ratio] 35.45 kg/m2 BETY Jha MD Work Phone: [facility] 03-08-2022 11:49-0400 Body weight 96.62 kg BETY Jha MD Work Phone: [facility] 09-26-2021 11:23-0400 Body weight 99.34 kg Baudilio Sultana MD Work Phone: [facility] 09-26-2021 11:23-0400 Diastolic blood pressure 72 mm[Hg] Baudilio Sultana MD Work Phone: [facility] 09-26-2021 11:23-0400 Heart rate 68 /min Baudilio Sultana MD Work Phone: [facility] 09-26-2021 11:23-0400 Systolic blood pressure 142 mm[Hg] Baudilio Sultana MD Work Phone: [facility] Encounters Encounter Date Encounter Type Care Provider Facility Start: 05-03-2025 ambulatory [facility] Facility:[facility] Start: 05-01-2025 ambulatory GILMER COTTON Facility: [facility] Start: 04-26-2025 End: 04-26-2025 ambulatory SOFY SAGASTUME Facility:[facility] Start: 04-20-2025 ambulatory [facility] Facility:[facility] Start: 04-05-2025 End: 04-05-2025 ambulatory [facility] Facility:[facility] Start: 03-21-2025 Registered Referred Min Marroquin MD [facility] Start: 03-20-2025 End: 03-21-2025 ambulatory GILMER COTTON Facility:[facility] Start: 03-08-2025 ambulatory [facility] Facility:[facility] Start: 03-08-[address] [facility] Start: 03-02-2025 Registered Referred Min Marroquin MD [facility] Start: 03-02-2025 End: 03-02-2025 ambulatory [facility] Facility:[facility] Start: 02-21-2025 Registered Referred Min Ch Eduardo [facility] Start: 02-21-2025 End: 02-21-2025 ambulatory [facility] Facility:[facility] Start: 02-13-2025 End: 02-13-2025 ambulatory GILMER COTTON Facility:[facility] Start: 02-07-2025 Registered Referred Min Ch Eduardo [facility] Start: 02-07-2025 End: 02-07-2025 ambulatory [facility] Facility:[facility] Start: 02-01-2025 Registered Referred Min Marroquin MD [facility] Start: 02-01-2025 End: 02-01-[address] Facility:[facility] Start: 01-31-2025 Registered Referred Min Marroquin MD [facility] Start: 01-31-2025 End: 01-31-2025 ambulatory Baudilio [place] Facility:[facility] Start: 01-24-[address] [facility] Start: 01-24-2025 End: 01-24-2025 ambulatory Min ALBRECHT Facility:[facility] Start: 01-17-2025 ambulatory Min ALBRECHT Facil ity:[facility] Start: 01-17-[address] [facility] Start: 01-10-2025 End: 01-10-2025 ambulatory GILMER Maryellen COTTON Facility:[facility] Start: 01-09-2025 ambulatory Min ALBRECHT Facil ity:[facility] Start: 01-09-2025 Registered Referred Min Marroquin MD [facility] Start: 01-03-2025 End: 01-03-[address] Baudilio Sultana MD Work Phone: Start: 01-03-2025 End: 01-03-2025 Departed Referred Min ChEduardo [facility] Start: 01-03-2025 Registered Referred Min Ch Eduardo [facility] Start: 01-03-2025 End: 01-03-2025 ambulatory Min ALBRECHT Facility:[facility] Start: 01-02-[address] [facility] Start: 01-02-2025 End: 01-02-2025 ambulatory Min ALBRECHT Facility:[facility] Start: 12-19-2024 End: 12-19-[address] Baudilio Sultana MD Work Phone: Start: 12-19-2024 End: 12-19-2024 Departed Referred Min Diane [facility] Start: 12-19-2024 Registered Referred Min Ch Eduardo [facility] Start: 12-19-2024 End: 12-19-2024 ambulatory Baudilio [place] Facility:[facility] Start: 12-06-2024 End: 12-06-2024 ambulatory RAF Abiodun CASEY Facility:[facility] Start: 12-05-2024 End: 12-05-[address] Baudilio Sultana MD Work Phone: -[facility] Start: 12-05-2024 End: 12-05-2024 [facility]arted [facility] Start: 12-05-2024 End: 12-05-[address] Facility:[facility] Start: 11-09-2024 End: 01-09-2025 Follow-up encounter Steven Pelaez Work Phone: Podiatry Start: 11-08-2024 ambulatory STEVEN Jones ty:[phone] Start: 11-04-2024 End: 11-04-2024 ambulatory GILMER COTTON Facility:[facility] Start: 11-01-2024 End: 01-01-2025 Follow-up encounter Steven Pelaez Work Phone: Podiatry Start: 10-27-2024 ambulatory RAF CASEY Facility:[facility] Start: 10-27-2024 End: 10-27-2024 Subsequent hospital visit by physician Xr [facility] Work Phone: Radiology Comment on above: Sprain of left ankle , unspecified ligament, initial encounter [S93.402A] Start: 10-27-2024 End: 10-27-2024 Patient encounter procedure Steven Pelaez Work Phone: Podiatry Comment on above: Sprain of left ankle , unspecified ligament, initial encounter (Primary Dx); Ankle instability, left; Chronic pain of left ankle Start: 10-27-2024 End: 10-27-2024 ambulatory RAF CASEY Facility:[facility] Start: 10-19-2024 End: 10-19-2024 Patient encounter procedure Mendel Sharma PA-C Work Phone: Orthopaedics Comment on above: Primary osteoarthrit is of left knee (Primary Dx) Start: 10-19-2024 End: 10-19-2024 ambulatory RAF CASEY Facility:[facility] Start: 10-10-2024 End: 10-10-2024 ambulatory Travis Patterson BEBA Work Phone: [facility] Comment on above: Fall at home, initia l encounter (Primary Dx); Cerebral palsy, unspecified type (HCC); Brachial neuritis or radiculitis; Acute pain of right shoulder; Left knee pain, unspecified chronicity; Diabetic polyneuropathy associated with type 2 diabetes mellitus (HCC); Neuropathy; Type 2 diabetes, controlled, with neuropathy (HCC); Atherosclerosis of [place] coronary artery of ekwok heart without angina pectoris; Other pulmonary embolism without acute cor pulmonale, unspecified chronicity (HCC); Debility Start: 10-10-2024 End: 10-10-2024 Telemedicine consultation with patient Travis Patterson APRN.CORRUGATED FASTENER DRIVER Work Phone: [facility] Start: 10-05-2024 End: 10-05-2024 ambulatory Travis Felicitas CORREAN.CORRUGATED FASTENER DRIVER Work Phone: [facility] Comment on above: Fall at home, initia l encounter (Primary Dx); Cerebral palsy, unspecified type (HCC); Brachial neuritis or radiculitis; Acute pain of right shoulder; Left knee pain, unspecified chronicity; Diabetic polyneuropathy associated with type 2 diabetes mellitus (HCC); Type 2 diabetes, controlled, with neuropathy (HCC); Neuropathy; Atherosclerosis of [place] coronary artery of [place] heart without angina pectoris; Other pulmonary embolism without acute cor pulmonale, unspecified chronicity (HCC); Debility Start: 10-05-2024 End: 10-05-2024 Telemedicine consultation with patient Travis Patterson APRN.CORRUGATED FASTENER DRIVER Work Phone: [facility] Start: 09-30-2024 End: 09-30-2024 ambulatory Travis Patterson APRN.CORRUGATED FASTENER DRIVER Work Phone: [facility] Comment on above: Fall at home, initia l encounter (Primary Dx); Cerebral palsy, unspecified type (HCC); Brachial neuritis or radiculitis; Acute pain of right shoulder; Left knee pain, unspecified chronicity; Diabetic polyneuropathy associated with type 2 diabetes mellitus (HCC); Neuropathy; Type 2 diabetes, controlled, with neuropathy (HCC); Atherosclerosis of [place] coronary artery of [place] heart without angina pectoris; Other pulmonary embolism without acute cor pulmonale, unspecified chronicity (HCC); Debility Start: 09-30-2024 End: 09-30-2024 Telemedicine consultation with patient Travis Patterson APRN.JOHN Work Phone: [facility] Start: 09-21-2024 End: 09-21-2024 ambulatory GILMER COTTON Facility:[facility] Start: 09-18-2024 End: 09-28-2024 ambulatory RAF Rascon KYMBERLY Facility:[facility] Start: 09-18-2024 End: 09-18-2024 Emergency department patient visit RAF CASEY Facility:[facility] Start: 09-02-2024 End: 09-02-2024 ambulatory GILMER COTTON Facility:[facility] Start: 08-05-2024 End: 08-05-2024 ambulatory GILMER Bojorquez [place] Facility:[facility] Start: 07-09-2024 End: 07-09-2024 Subsequent hospital visit by physician [facility] Xr Portable [facility] Radiology Comment on above: Arrived Start: 07-09-2024 End: 07-10-2024 Emergency department patient visit Александр Jha MD Work Phone: [facility] ED Comment on above: Acute cough (Primary Dx) Start: 06-30-2024 End: 06-30-2024 ambulatory GILMER COTTON Facility:[facility] Start: 05-02-2024 End: 05-02-2024 ambulatory GILMER Bojorquez [place] Facility:[facility] Start: 02-10-2024 End: 02-10-2024 Office outpatient visit 10 minutes Isaac Chicas DO Work Phone: [facility] WND OSTOMY HBO Comment on above: Pressure ulcer of ri ght foot, stage 3 (HCC) (Primary Dx) Start: 02-10-2024 End: 02-10-2024 ambulatory [facility] Start: 01-27-2024 End: 01-27-2024 Subsequent hospital visit by physician Isaac Chicas DO Work Phone: [facility] WND OSTOMY HBO Comment on above: Pressure ulcer of ri ght foot, stage 3 (HCC) (Primary Dx) Start: 01-27-2024 End: 01-27-2024 ambulatory [facility] Start: 01-20-2024 End: 01-20-2024 Office outpatient new 30 minutes Isaac Chicas DO Work Phone: [facility] WND OSTOMY HBO Comment on above: Pressure ulcer of ri ght foot, stage 3 (HCC) (Primary Dx) Start: 01-20-2024 End: 01-20-2024 ambulatory [facility] Start: 12-15-2023 End: 12-15-2023 Subsequent hospital visit by physician [facility] Xr Portable [facility] Radiology Comment on above: Arrived Start: 12-15-2023 End: 12-16-2023 Emergency department patient visit Gloria Robertoulloch DO Work Phone: [facility] ED Comment on above: Diabetic ulcer of le ft foot associated with diabetes mellitus due to underlying condition, unspecified part of foot, unspecified ulcer stage (HCC) (Primary Dx); Left leg cellulitis Start: 07-19-2023 End: 07-19-2023 Subsequent hospital visit by physician [facility] Ct Exam Room [address] [facility] [address] Comment on above: Arrived Start: 07-19-2023 End: 07-19-2023 Emergency department patient visit CUBA ANNA [facility] Start: 07-19-2023 End: 07-20-2023 Emergency department patient visit Cuba Anna MD Work Phone: [facility] ED Comment on above: Frequent falls (Prim liv Dx); Right hip pain; Contusion of right knee, initial encounter; Osteoarthritis, unspecified osteoarthritis type, unspecified site Start: 05-04-2023 Orders Only Chasidy Heredia MA [facility] [place] Start: 09-06-2022 End: 09-07-2022 Emergency department patient visit [facility] Start: 09-06-2022 End: 09-06-2022 Subsequent hospital visit by physician [facility] Ed Xr Portable [facility] Comment on above: Arrived Start: 09-06-2022 End: 09-06-2022 Emergency department patient visit Linden Fuentes MD Work Phone: [facility] Comment on above: Fall, initial encoun ter (Primary Dx) Start: 04-15-2022 Telephone encounter Baudilio Sultana MD Work Phone: [facility] Comment on above: Insurance Authorizat ion Start: 03-08-2022 End: 03-13-2022 Evaluation and management of inpatient J Candida Jha MD Work Phone: [facility] Comment on above: Diabetic ulcer [...] of patient and report Nurse/Benigno [facility] Work Phone: Podiatry Comment on above: Diabetic ulcer of to e 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, with fat layer exposed (HCC) (Primary Dx) Start: 02-26-2022 Telephone encounter Steven Madison Work Phone: Podiatry Comment on above: Patient Question Start: 02-12-2022 ambulatory Steven xavier Work Phone: Podiatry Comment on above: xray results Start: 02-12-2022 E-mail encounter niecy m caregiver Steven Pelaez Work Phone: [facility] Start: 02-10-2022 End: 02-10-2022 Subsequent hospital visit by physician Xr [facility] [place] [facility] Work Phone: Radiology Comment on above: [...] Sultana MD Work Phone: Internal Medicine [facility] [place] Start: 11-26-2021 Telephone encounter Baudilio Sultana MD Work Phone: Internal Medicine [place] Comment on above: Anticoagulation Start: 11-19-2021 Telephone encounter Baudilio Sultana MD Work Phone: Family Medicine [place] Comment on above: Anticoagulation Start: 11-05-2021 Telephone encounter Baudilio Sultana MD Work Phone: [facility] [place] Comment on above: Anticoagulation Start: 10-30-2021 Telephone encounter Baudilio Sultana MD Work Phone: [facility] Comment on above: Anticoagulation Start: 10-15-2021 Telephone encounter Baudilio Sultana MD Work Phone: [facility] Comment on above: Anticoagulation Start: 10-14-2021 ambulatory Baudilio Sultana MD Work Phone: Family [facility] Comment on above: Question regarding C arotid Dup Dustin OP Start: 10-14-2021 End: 10-14-2021 Subsequent hospital visit by physician Bone Density [facility] Work Phone: Radiology Comment on above: Disorder of bone and cartilage [M89.9, M94.9] Start: 10-08-2021 Telephone encounter Baudilio Sultana MD Work Phone: [facility] Comment on above: Anticoagulation Refill Request Start: 10-01-2021 Telephone encounter Baudilio Sultana MD Work Phone: Family [facility] Comment on above: Patient Question; Or ders Anticoagulation Start: 09-27-2021 Telephone encounter Baudilio Sultana MD Work Phone: [facility] [place] Comment on above: Results Start: 09-26-2021 End: 09-26-2021 Patient encounter procedure Baudilio Sultana MD Work Phone: [facility] [place] Comment on above: Cerebral palsy, unsp [...] Telephone encounter Baudilio Sultana MD Work Phone: [facility] [place] Comment on above: Anticoagulation Start: 09-18-2021 Telephone encounter Baudilio Sultana MD Work Phone: [facility] [place] Comment on above: Anticoagulation Start: 09-16-2021 Chart abstracting Baudilio Pretty MD Work Phone: [facility] [place] Start: 09-16-2021 End: 09-16-2021 Patient encounter procedure [facility] Start: 2021 Telephone encounter Baudilio Sultana MD Work Phone: [facility] Comment on above: Anticoagulation Start: 01-29-2021 End: 01-29-2021 Subsequent hospital visit by physician Xr [facility] [place] Work Phone: Radiology Comment on above: Chronic right should er pain [M25.511, G89.29] Start: 04-12-2018 Ambulatory DAVID ERWIN Facility :[facility] Start: 08-12-2017 End: 08-12-2017 Ambulatory DAVID ERWIN [facility] Procedures Date Procedure Procedure Detail Performing Clinician [...] d ev cleared fda spec home use Velotton DO Work Phone: Start: 03-12-2022 Gluc bld [...] Start: 03-11-2022 POCT COVID-19, ANTIGEN Katya Lezama EDITORIAL ASSISTANT - CORRUGATED FASTENER DRIVER Work Phone: Start: 03-11-2022 Gluc bld gluc [...] Thyrotropin [Units/v olume] in Serum or Plasma [facility] 1 Start: 03-09-2022 BASIC METABOLIC PANE L W/ REFLEX TO MG FOR LOW K aKtya Lezama EDITORIAL ASSISTANT - CORRUGATED FASTENER DRIVER Work Phone: Start: 03-09-2022 Drug screen quantita tive vancomycin Kushal Gaines DO Work Phone: Start: 03-09-2022 Hemoglobin glycosylated a1c Katya Lezama EDITORIAL ASSISTANT - CORRUGATED FASTENER DRIVER Work Phone: Start: 03-09-2022 PROTIME/INR & PTT Merritt Lezama EDITORIAL ASSISTANT - CORRUGATED FASTENER DRIVER Work Phone: Start: 03-08-2022 Gluc bld gluc mntr d ev cleared fda spec home use Александр Jha MD Work Phone: Start: 03-08-2022 End: 03-08-2022 Gluc bld gluc mntr dev cleared fda spec home use Kushal Gaines DO Work Phone: Start: 03-08-2022 Radex ankle complete minimum 3 views Katya Lezama EDITORIAL ASSISTANT - CORRUGATED FASTENER DRIVER Work Phone: Start: 03-08-2022 BEDSIDE SPIROMETRY Joy Lezama EDITORIAL ASSISTANT - CORRUGATED FASTENER DRIVER Work Phone: Start: 03-08-2022 Culture bacterial quanttative colony count urine Александр Jha MD Work Phone: Start: 03-08-2022 Urnls dip stick/tabl et rgnt auto w/o microscopy Александр Jha MD Work Phone: Start: 09-17-2022 Basic metabolic pane l calcium total J [...] Start: 09-25-2025 Creatinine measurement Serum Creatin ine [facility] Start: 02-20-2025 Influenza vaccination [facility] Start: 12-14-2024 Complete blood count Hemoglobin/Jackson tocrit [facility] Start: 12-14-2024 Creatinine measurement Serum Creatin ine [facility] Start: 12-14-2024 Diabetes: Estimated Glomerular Filtration Rate for Kidney Health Diabetes: Estimated Glomerular Filtration Rate for Kidney Health [facility] Start: 12-07-2024 End: 12-07-2024 Patient encounter procedure 12/07/2024 3:40 PM EDT Office Visit Endocrinology [address] [address] Ravi Michael MD [address] [place], [place] [id number] Diabetes Endocrinology Comment on above: Diabetes Start: 11-08-2024 End: 11-08-2024 Patient encounter procedure 11/08/2024 11:00 AM EDT Appointment MRI Scan [address] [place] [address] Chronic pain of left ankle [M25.572, G89.29 MRI Scan Comment on above: Chronic pain of left ankle [M25.572, G89.29 Start: 10-27-2024 End: 10-27-2024 Patient encounter procedure 10/27/2024 11:15 AM EDT Office Visit Podiatry [address] [place], [place] [phone] Steven Pelaez [address] [place], [place] [id number] left foot Podiatry Comment on above: left foot Start: 10-19-2024 End: 10-19-2024 Patient encounter procedure Orthopaedics Comment on above: Cerebral palsy with knee injury unable to stand pivot. Exam negative for laxity and patient going to shelter for rehab Cerebral palsy with left knee injury unable to stand pivot Start: 06-22-2024 Advance Directive Discussion Advance Directive Discussion [facility] Start: 06-22-2024 Medicare Advantage Annual Wellness Visit Medicare Advantage Annual Wellness Visit [facility] Start: 02-21-2024 Covid-19 Vaccine ( season) Covid-19 Vaccine ( season) [facility] Start: 02-21-2024 Influenza vaccination S [facility] Start: 02-03-2024 End: 02-03-2024 Patient encounter procedure 02/03/2024 10:00 AM EDT Appointment [facility] HBO [address] [place] [address] Isaac Chicas, [address] [place] [address] [facility] Start: 01-27-2024 End: 01-27-2024 Patient encounter procedure 01/27/2024 1:15 PM EDT Appointment [facility] [address] [place] [address] Isaac Chicas, DO [address] [place] [address] [facility] Start: 06-22-2023 Advance Directive Discussion Advance Directive Discussion [facility] Start: 06-22-2023 Medicare Advantage Annual Wellness Visit Medicare Advantage Annual Wellness Visit [facility] Start: 03-09-2023 Hemoglobin A1c measurement Diabetes: Hemoglobin A1C [facility] Start: 03-09-2023 Thyroid stimulating hormone measurement TSH Level [facility] Start: 02-20-2023 Covid-19 Vaccine ( season) Covid-19 Vaccine () [facility] Start: 02-20-2023 COVID-19 Vaccine ( season) COVID-19 Vaccine () [facility] Start: 02-20-2023 Influenza vaccination Influenza Vacc ine (#1) [facility] Start: 01-04-2023 Colonoscopy COLONOSCOPY [facility] Start: 01-04-2023 COLORECTAL CANCER SCREENING COLORECTAL CANCER SCREENING [facility] Start: 01-04-2023 Screening for malign ant neoplasm of colon [facility] Start: 09-26-2022 ANNUAL PCP TEAM WINE CONSULTANT DANYELLE DISEASE VISIT ANNUAL PCP TEAM CHRONIC DISEASE VISIT [facility] Start: 09-26-2022 Serum Creatinine Serum Creatinine Cl [facility] Start: 09-16-2022 Hepatitis B screening URINE ALBUMIN:CREATININE RATIO [facility] Start: 09-06-2022 Hemoglobin A1c measurement HbA1C [facility] Start: 09-06-2022 Hemoglobin A1c/Hemoglobin.total in Blood HBA1C [facility] Start: 06-24-2022 ANNUAL PCP TEAM WINE CONSULTANT DANYELLE DISEASE VISIT ANNUAL PCP TEAM CHRONIC DISEASE VISIT [facility] Start: 06-22-2022 ADVANCE DIRECTIVE DISCUSSION ADVANCE DIRECTIVE DISCUSSION [facility] Start: 04-18-2022 BP CONTROLLED (<130/80) BP CONTROLLE D (<130/80) [facility] Start: 04-12-2022 COVID-19 Vaccine (4 - Booster) COVID-19 Vaccine (4 - Booster) [facility] Start: 03-13-2022 End: 03-11-2023 Protime-INR Protime-INR Lab Routine PE (pulmonary thromboembolism) (HCC) Expected: 03/13/2022, Expires: 03/11/2023 [facility] Work Phone: Comment on above: Expected: 03/13/2022 , Expires: 03/11/2023 Start: 02-20-2022 Influenza vaccination [facility] Start: 02-12-2022 Hemoglobin A1c/Hemoglobin.total in Blood HBA1C [facility] Start: 11-09-2021 3 comp foot exam completed DIABETIC FOOT EXAM [facility] Start: 11-09-2021 Diabetic foot examination Diabetic Foot Exam [facility] Start: 11-08-2021 End: 01-08-2022 Thyrotropin [Units/volume] in Serum or Plasma TSH BLD Lab Routine Acquired hypothyroidism Expected: 11/08/2021, Expires: 01/08/2022 [facility] Work Phone: Comment on above: Expected: 11/08/2021 , Expires: 01/08/2022 Start: 09-26-2021 End: 11-26-2021 Comprehensive metabolic 2000 panel - Serum or Plasma [facility] Work Phone: Comment on above: Expected: 09/26/2021 , Expires: 11/26/2021 Start: 09-26-2021 End: 11-26-2021 Thyrotropin [Units/volume] in Serum or Plasma [facility] Work Phone: Comment on above: Expected: 09/26/2021 , Expires: 11/26/2021 Start: 09-26-2021 End: 11-26-2021 VITAMIN B12 BLOOD [facility] Work Phone: Comment on above: Expected: 09/26/2021 , Expires: 11/26/2021 Start: 09-11-2021 Glaucoma screening Dilated Retinal E xam [facility] Start: 09-11-2021 Hepatitis C antibody , confirmatory test DILATED RETINAL EXAM [facility] Start: 08-29-2021 FECAL OCCULT BLOOD FECAL OCCULT BLOO D [facility] Start: 08-29-2021 Screening for malign ant neoplasm of colon Fecal Occult Blood [facility] Start: 08-01-2021 Hemoglobin A1c/Hemoglobin.total in Blood HBA1C [facility] Start: 07-11-2021 Hepatitis B screening URINE ALBUMIN:CREATININE RATIO [facility] Start: 06-22-2021 ADVANCE DIRECTIVE DISCUSSION ADVANCE DIRECTIVE DISCUSSION [facility] Start: 06-16-2021 COVID-19 VACCINE (5 - Booster) COVID-19 VACCINE (5 - Booster) [facility] Start: 03-21-2021 Hepatitis B surface antibody level LDL CHOLESTEROL [facility] Start: 03-29-2019 Mammography [facility] Start: 03-29-2019 Screening for malign ant neoplasm of breast Mammogram Screening [facility] Start: 12-26-2018 ADVANCE DIRECTIVE DISCUSSION ADVANCE DIRECTIVE DISCUSSION [facility] Start: 03-29-2017 DTaP/Tdap/Td Vaccine s (2 - Td or Tdap) DTaP/Tdap/Td Vaccines (2 - Td or Tdap) [facility] Start: 03-29-2017 Urine microalbumin profile [facility] Start: 09-06-2016 Pneumococcal Vaccine : 65+ Years (1 - PCV) Pneumococcal Vaccine: 65+ Years (1 - PCV) [facility] Start: 2016 BONE DENSITY BONE DENSITY [facility] Start: 05-26-2016 SHINGRIX VACCINE (2 of 3) SHINGRIX VACCINE (2 of 3) [facility] Start: 05-26-2016 Zoster Vaccines (2 o f 3) Zoster Vaccines (2 of 3) [facility] Start: 2011 Hepatitis B Vaccine (1 of 3 - Risk 3-dose series) Hepatitis B Vaccine (1 of 3 - Risk 3-dose series) [facility] Start: 2011 Hepatitis B Vaccines (1 of 3 - Risk 3-dose series) Hepatitis B Vaccines (1 of 3 - Risk 3-dose series) [facility] Start: 2011 RSV Immunization age d 60 or older (1 - 1-dose 60+ series) RSV Immunization aged 60 or older (1 - 1-dose 60+ series) [facility] Start: 2011 RSV Immunization for Adults (1 - Risk 60-74 years 1-dose series) RSV Immunization for Adults (1 - Risk 60-74 years 1-dose series) [facility] Start: 2011 RSV Vaccine (1 - 1-d ose 60+ series) RSV Vaccine (1 - 1-dose 60+ series) [facility] Start: 2011 RSV Vaccine (1 - Ris k 60-74 years 1-dose series) RSV Vaccine (1 - Risk 60-74 years 1-dose series) [facility] Start: 09-06-2001 Zoster Vaccines (1 o f 2) Zoster Vaccines (1 of 2) [facility] Start: 1996 COLOGUARD (FIT-DNA) COLOGUARD (FIT-D NA) [facility] Start: [address] COLONOGRAPHY [facility] Start: 1996 Screening for malign ant neoplasm of colon [facility] Start: 1996 SIGMOIDOSCOPY SIGMOIDOSCOPY [facility] Start: 09-07-1991 Screening for malign ant neoplasm of breast Mammogram [facility] Start: 1991 Screening for malign ant neoplasm of breast Mammogram [facility] Start: 09-06-1970 DTaP/Tdap/Td Vaccine s (1 - Tdap) DTaP/Tdap/Td Vaccines (1 - Tdap) [facility] Start: 1970 DTaP/Tdap/Td vaccine (1 - Tdap) DTaP/Tdap/Td vaccine (1 - Tdap) [facility] Start: 1970 Hepatitis A Vaccines (1 of 2 - Risk 2-dose series) Hepatitis A Vaccines (1 of 2 - Risk 2-dose series) [facility] Start: 09-06-1969 Hepatitis C screening Hepatitis C [facility] Start: 1969 Anxiety Screening Anxiety Screening [facility] Start: 1969 BP CONTROLLED (<130/80) BP CONTROLLE D (<130/80) [facility] Start: 1969 Diabetes: Urine Albumin-Creatinine Ratio for Kidney Health Diabetes: Urine Albumin-Creatinine Ratio for Kidney Health [facility] Start: 1969 Hepatitis C screening Hepatitis C [facility] Start: 1963 Depression Monitoring Depression Mon itoring [facility] Start: 1963 Depression Screening Depression Scre ening [facility] Start: 1961 Diabetic foot examination Diabetes: Foot Exam [facility] Start: 1961 Glaucoma screening Diabetes: R etinopathy Screening [facility] Start: 1961 Preventive dental service Diabetes: Dental Exam [facility] Start: 03-09-1952 COVID-19 Vaccine (#1) COVID-19 Vacci ne (#1) [facility] Start: 1950 Hepatitis B Vaccines (1 of 3 - 3-dose series) Hepatitis B Vaccines (1 of 3 - 3-dose series) [facility] Start: 1950 Screening for malign ant neoplasm of colon [facility] Start: 1951 Screening for osteoporosis Bone Density Scan [facility] Start: 1951 Lipid panel Lipid Panel [facility] Start: 1950 Medicare Advantage Annual Wellness Visit (AWV) Medicare Advantage Annual Wellness Visit (AWV) [facility] Start: 1950 Screening for malign ant neoplasm of colon [facility] Start: 1950 Screening for osteoporosis Bone Density Scan [facility] Bacteria identified in Blood by Culture [facility] [employer] [facility] Work Phone: End: 03-13-2022 Basic metabolic 2000 panel - Serum or Plasma Basic Metabolic Panel Lab Routine Daily for 3 Days starting 03/11/2022 until 03/13/2022, 1 completed [facility] Work Phone: Comment on above: Daily for 3 Days sta rting 03/11/2022 until 03/13/2022, 1 completed End: 03-13-2022 CBC W Auto Differential panel - Blood CBC with Auto Differential Lab Routine Daily for 3 Days starting 03/11/2022 until 03/13/2022, 1 completed [facility] Work Phone: Comment on above: Daily for 3 Days sta rting 03/11/2022 until 03/13/2022, 1 completed Culture, Blood 1 Culture, Blood 1 Microbiology STAT 03/08/2022 1:04 PM EDT [facility] Work Phone: Culture, Blood 2 Culture, Blood 2 Microbiology STAT 03/08/2022 1:04 PM EDT [facility] Work Phone: End: 03-08-2022 Culture, Urine Culture, Urine Microbiology Add-On One Time for 1 Occurrences starting 03/08/2022 until 03/08/2022 [facility] Work [facility]: Comment on above: One Time for 1 Occur rences starting 03/08/2022 until 03/08/2022 Dressing Order: Collagen Ag, Mesalt pad; Three times per week; 4x4 gauze, ABDs; Kerlex, Paper tape Dressing Order: Collagen Ag, Mesalt pad; Three times per week; 4x4 gauze, ABDs; Kerlex, Paper tape Wound Ostomy Routine Ordered: 01/20/2024 [employer] Work Phone: Comment on above: Ordered: 01/20/2024 Dressing Order: Collagen, Mesalt pad; Three times per week; ABDs; Kerlex, Paper tape Dressing Order: Collagen, Mesalt pad; Three times per week; ABDs; Kerlex, Paper tape Wound Ostomy Routine Ordered: 01/27/2024 [employer] Work Phone: Comment on above: Ordered: 01/27/2024 End: 10-26-2022 Dxa bone density study 1/> sites axial skel DXA-AXIAL SKELETON Radiology Routine Disorder of bone and cartilage 1 Occurrences starting 09/26/2021 until 10/26/2022 [facility] Work Phone: Comment on above: 1 Occurrences starti ng 09/26/2021 until 10/26/2022 ECG 12 lead ECG 12 lead CV E CG STAT 09/06/2022 3:01 AM EDT [employer] Work Phone: Glucose [Mass/volume ] in Serum or Plasma [facility] Work Phone: Comment on above: 4X Daily (AC & HS) u ntil discontinued starting 03/08/2022 As Needed until disc ontinued starting 03/08/2022 End: 03-08-2022 Initiate Sepsis Narrator Initiate Sepsis Narrator Respiratory Care STAT Once for 1 Occurrences starting 03/08/2022 until 03/08/2022 [facility] Work Phone: Comment on above: Once for 1 Occurrenc es starting 03/08/2022 until 03/08/2022 End: 11-26-2025 MR Ankle - left WO contrast MRI ANKLE WO IVCON LEFT Radiology Routine Chronic pain of left ankle 1 Occurrences starting 10/27/2024 until 11/26/2025 [facility] Comment on above: 1 Occurrences starti ng 10/27/2024 until 11/26/2025 Oxygen therapy [Mini mum Data Set] Initiate Oxygen Therapy Protocol Respiratory Care Routine Daily until discontinued starting 03/08/2022 [facility] Work Phone: Comment on above: Daily until disconti nued starting 03/08/2022 Oxygen therapy [Mini mum Data Set] Initiate Oxygen Therapy Protocol Respiratory Care Routine As Needed until discontinued starting 03/08/2022 [facility] Work Phone: Comment on above: As Needed until disc ontinued starting 03/08/2022 End: 03-19-2022 PROTIME/INR & PTT PROTIME/INR & PTT Lab Routine Daily for 10 Days starting 03/10/2022 until 03/19/2022, 2 completed [facility] Work Phone: Comment on above: Daily for [address] arting 03/10/2022 until 03/19/2022, 2 completed End: 01-17-2023 Screening mammography bi 2-view breast inc cad FUAD SCREENING Radiology Routine Encounter for screening mammogram for breast cancer 1 Occurrences starting 12/18/2021 until 01/17/2023 [facility] Work Phone: Comment on above: 1 Occurrences starti ng 12/18/2021 until 01/17/2023 End: 09-26-2022 US CAROTID ARTERIES [facility] US CAROTID ARTERIES [facility] Vascular Lab Routine Carotid artery disease, unspecified laterality, unspecified type (HCC) 1 Occurrences starting 09/26/2021 until 09/26/2022 [facility] Work Phone: Comment on above: 1 Occurrences starti ng 09/26/2021 until 09/26/2022 End: 03-08-2022 Wound ostomy eval and treat Wound ostomy eval and treat Wound Ostomy Routine One Time for 1 Occurrences starting 03/08/2022 until 03/08/2022 [employer] Work Phone: Comment on above: One Time for 1 Occur rences starting 03/08/2022 until 03/08/2022 End: 11-26-2025 XR Ankle - left AP and Lateral and oblique XR ANKLE GENERAL 3V AP/LAT/OBL LEFT Radiology Routine Sprain of left ankle, unspecified ligament, initial encounter Ankle instability, left 1 Occurrences starting 10/27/2024 until 11/26/2025 [facility] Work Phone: Comment on above: 1 Occurrences starti ng 10/27/2024 until 11/26/2025 XR Ankle - left AP a nd Lateral and oblique XR ANKLE GENERAL 3V AP/LAT/OBL LEFT Radiology Routine Sprain of left ankle, unspecified ligament, initial encounter Ankle instability, left 10/27/2024 12:04 PM EDT [facility] End: 03-12-2023 XR FOOT GENERAL 3V AP/LAT/OBL LEFT XR FOOT GENERAL 3V AP/LAT/OBL LEFT Radiology Routine Diabetic ulcer of toe 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, with fat layer exposed (HCC) 1 Occurrences starting 02/10/2022 until 03/12/2023 [facility] Work Phone: Comment on above: 1 Occurrences starti ng 02/10/2022 until 03/12/2023 End: 02-10-2022 XR FOOT GENERAL 3V AP/LAT/OBL LEFT [facility] Work Phone: Comment on above: 1 Occurrences starti ng 02/10/2022 until 02/10/2022 End: 11-26-2025 XR Tibia and Fibula - left AP and Lateral XR TIBIA FIBULA 2V AP/LAT LEFT Radiology Routine Sprain of left ankle, unspecified ligament, initial encounter Ankle instability, left 1 Occurrences starting 10/27/2024 until 11/26/2025 [facility] Comment on above: 1 Occurrences starti ng 10/27/2024 until 11/26/2025 XR Tibia and Fibula - left AP and Lateral XR TIBIA FIBULA 2V AP/LAT LEFT Radiology Routine Sprain of left ankle, unspecified ligament, initial encounter Ankle instability, left 10/27/2024 12:04 PM EDT [facility] Immunizations Immunization Date Immunization Notes Care Provider Fide billings 03-14-2022 influenza virus vacc ine, unspecified formulation [facility] 1 [facility] 12-11-2021 COVID-19, PFIZER Bivalent BOOSTER, (age 12y+), IM, 30 mcg/0.3 mL dose BETY Jha MD Work Phone: [facility] Work Phone: 04-21-2021 COVID-19 vaccine, fu ll dose (MODERNA) Baudilio Sultana MD Work Phone: [facility] 02-21-2021 influenza, high-dose , quadrivalent vaccine (FLUZONE HIGH DOSE QUADRIVALENT) Baudilio Sultana MD Work Phone: [facility] 02-21-2021 influenza virus vacc ine, unspecified formulation Chasidy Yan GERMAIN [facility] 09-25-2020 COVID-19 vaccine, fu ll dose (MODERNA) Baudilio Sultana MD Work Phone: [facility] 09-25-2020 COVID-19, US Vaccine , Vaccine Unspecified BETY Jha MD Work Phone: [facility] Work Phone: 09-25-2020 SARS-CoV-2, Unspecified [facility] [address] [facility] 08-28-2020 COVID-19 vaccine, fu ll dose (MODERNA) Baudilio Sultana MD Work Phone: [facility] Work Phone: 08-25-2020 COVID-19 vaccine, fu ll dose (MODERNA) Baudilio Sultana MD Work Phone: [facility] 08-23-2020 COVID-19, US Vaccine , Vaccine Unspecified BETY Jha MD Work Phone: [facility] Work Phone: 08-23-2020 SARS-CoV-2, Unspecified [facility] 1 [facility] 03-07-2020 influenza, high-dose , quadrivalent vaccine (FLUZONE HIGH DOSE QUADRIVALENT) Baudilio Sultana MD Work Phone: [facility] 05-04-2019 influenza, high dose seasonal, preservative-free Baudilio Sultana MD Work Phone: [facility] 05-04-2019 pneumococcal polysaccharide vaccine, 23 valent Baudilio Sultana MD Work Phone: [facility] 04-06-2018 influenza, high dose seasonal, preservative-free Baudilio Sultana MD Work Phone: [facility] 03-23-2017 Influenza virus vaccine [facility] 03-31-2016 zoster vaccine, live Baudilio Sultana MD Work Phone: [facility] 03-25-2016 influenza, injectabl e, quadrivalent, contains preservative Baudilio Sultana MD Work Phone: [facility] 03-02-2015 influenza, seasonal, injectable Baudilio Sultana MD Work Phone: [facility] 01-25-2015 pneumococcal conjuga te vaccine, 13 valent Baudilio Sultana MD Work Phone: [facility] 03-23-2014 influenza virus vacc ine, whole virus Baudilio Sultana MD Work Phone: [facility] 01-02-2014 Pneumococcal Vaccine [facility] Work Phone: 01-02-2014 pneumococcal vaccine , unspecified formulation Dr. Baudilio Sultana MD Work Phone: [facility] 12-28-2013 pneumococcal polysaccharide vaccine, 23 valent Baudilio Sultana MD Work Phone: [facility] 03-29-2011 influenza virus vacc ine, unspecified formulation Baudilio Sultana MD Work Phone: [facility] Work Phone: 04-15-2010 influenza virus vacc ine, unspecified formulation Baudilio Sultana MD Work Phone: [facility] Work Phone: 04-19-2009 novel influenza-H1N1 -09, all formulations Baudilio Sultana MD Work Phone: [facility] Work Phone: 04-12-2009 influenza virus vacc ine, unspecified formulation Baudilio Sultana MD Work Phone: [facility] Work Phone: 04-05-2008 influenza virus vacc ine, unspecified formulation Baudilio Sultana MD Work Phone: [facility] 04-19-2007 influenza virus vacc ine, unspecified formulation Baudilio Sultana MD Work Phone: [facility] Work Phone: 03-29-2007 tetanus toxoid, redu alfredito diphtheria toxoid, and acellular pertussis vaccine, adsorbed Baudilio Sultana MD Work Phone: [facility] Work Phone: 04-29-2006 influenza virus vacc ine, unspecified formulation Baudilio Sultana MD Work Phone: [facility] Work Phone: 04-03-2003 pneumococcal polysaccharide vaccine, 23 valent Baudilio Sultana MD Work Phone: [facility] Work Phone: 04-04-1998 pneumococcal polysaccharide vaccine, 23 valent Baudilio Sultana MD Work Phone: [facility] Payers Date Payer Category Payer Self-pay [id number] 2023 Medicare HMO [employer] V[employer]GH[employer] EDICARE [id number] 2023 Medicaid [facility] VAUGHN Wolff EDICAID ONLY [id number] 2022 Medicare [id number] 2022 Medicare (Managed Care) [facility] DUAL COMPLETE HMO POS SNP [id number] 2022 Medicare [id number] 2021 Medicaid [id number] 2021 Medicaid [facility] MEDICAID MYC ARE [facility] MEDICAID [id number] 2021-Present [phone] [address] [place] [id number] Medicaid [id number] 2021 Medicaid [id number] 2021 Medicare [id number] 2021 Medicare [id number] 2021 Medicaid MEDICAID [facility] MEDICAID [id number] 2021-Present [phone] [address] [place] [address] Medicaid [id number] 2020 Private Health Insurance 2003 Unknown [facility] [address] NAN [id number] 1990 Medicare [id number] 1951 Unknown [id number] 668 Medicare [id number] Medicare [facility] [id number] Private Health Insurance [facility] [id number] Unknown [id number] Unknown [id number] Unknown [id number] 462 Unknown [id number]. 462 Unknown [id number]. 462 Unknown [id number]. 462 Unknown [id number]. 462 Unknown [id number]. 462 Unknown [id number]. 462 Unknown [id number]. 462 Unknown [id number]. 462 Unknown [id number]. 462 Unknown [id number]. 462 Unknown [id number]. 462 Unknown [id number]. 462 Unknown [id number] [id number]. 462 Unknown [id number] [id number]. 462 Unknown [id number]. 462 Unknown [id number]. 462 Social History Date Type Detail Facility Start: 10-09-2016 End: 10-09-2021 Tobacco smoking status NHIS Never smoked tobacco [facility] Start: 08-15-2021 End: 10-27-2024 Alcohol intake Current drinker of alcohol (finding) [facility] Start: 01-02-2020 End: 09-06-2022 History SDOH Alcohol Frequency 2 [facility] Start: 01-02-2020 End: 09-06-2022 History SDOH Alcohol Std Drinks 1 [facility] Start: 01-02-2020 History SDOH Social Connections Phone 5 [facility] Start: 01-02-2020 History SDOH Social Connections Meetings 98 [facility] Start: 01-02-2020 History SDOH Social Connections Living 3 [facility] Start: 01-02-2020 History SDOH Physical Activity DPW 0 [facility] Start: 01-02-2020 History SDOH Stress 4 [facility] Start: 01-02-2020 Education 15 [facility] Start: 10-09-2016 End: 10-19-2024 Tobacco Comment Lived with 2 smoking parents for 18 years. Spouse non-smoke. [facility] Start: 1950 Sex Assigned At Not on file [facility] Start: 12-15-2020 End: 09-06-2022 Exposure to SARS-CoV-2 (event) Not sure [facility] Start: 04-22-2021 Tobacco smoking status NHIS Unknown if ever smoked [facility] Work Phone: Start: 02-27-2021 Rare [facility] Start: 02-27-2021 None [facility] Start: 06-26-2017 Spouse/ Significant Other [facility] Start: 02-27-2021 Non-smoker [facility] Start: 1950 End: 1950 Sex Assigned At Female [facility] Work Phone: Start: 10-04-2021 End: 03-10-2022 Exposure to SARS-CoV-2 (event) Unable to assess [facility] Start: 10-09-2016 End: 10-19-2024 Tobacco use and exposure Smokeless tobacco non-user [facility] Work Phone: Start: 03-08-2022 History SDOH Alcohol Comment 1 PER YEAR [facility] Work Phone: Start: 01-02-2020 End: 10-27-2024 History of Social function [facility] Start: 01-02-2020 End: 10-27-2024 Social connection and isolation panel [facility] Do you belong to any clubs or organizations such as mormon groups, unions, fraternal or athletic groups, or school groups? No [facility] How often do you att end meetings of the clubs or organizations you belong to? Patient refused [facility] Are you now , , , , never or living with a partner? [facility] How often to you hav e a drink containing alcohol? Monthly or less [facility] How many standard dr inks containing alcohol do you have on a typical day? 1 or 2 [facility] How often do you hav e 6 or more drinks on 1 occasion? Never [facility] How hard is it for y ou to pay for the very basics like food, housing, medical care, and heating Not very hard [facility] Do you feel stress - tense, restless, nervous, or anxious, or unable to sleep at night because your mind is troubled all the time - these days [OSQ] Rather much [facility] (I/We) worried wheth er (my/our) food would run out before (I/we) got money to buy more. Sometimes true [facility] The food that (I/we) bought just didn't last, and (I/we) didn't have money to get more. Never true [facility] Start: 12-03-2021 Gender identity Identifies as female gender (finding) [facility] Start: 07-09-2024 Alcohol Comment occasional [facility] Start: 04-03-2022 Sex Female (finding) [facility] Medical Equipment Procedure Code Equipment Code Equipment Original Text Equipment Identifier Dates Reinaldo Bn Smplx Hv Fd - [id number] Start: 12-26-2013 Reinaldo Bn Smplx Hv Fd - [id number] Start: 12-26-2013 Comp Fem 3 Rt Kn Reinaldo Ps Pfc - [id number] Start: 12-26-2013 Ins Tib Xlnk - [id number] Start: 12-26-2013 Comp Tibtry 3 Kn Reinaldo Mdlr Sig - [id number] Start: 12-26-2013 Dome Pat 38mm Pf c Sig Std Kn - [id number] Start: 12-26-2013 [id number], [id number], [id number], [id number], [id number], [id number] Start: 01-04-2018 End: 07-24-2021 Comment on above: [...] 01/25/2015 11:16 AM Lora Alegria Ma No [facility] 01-25-2015 Are you blind, or do you have serious difficulty seeing, even when wearing glasses Yes 01/25/2015 11:16 AM Lora Alegria Ma Yes [facility] 01-25-2015 Do you have serious difficulty walking or climbing stairs Yes 01/25/2015 11:16 AM Lora Alegria Ma Yes [facility] 01-25-2015 Do you have difficul ty dressing or bathing Yes 01/25/2015 11:16 AM Lora Alegria Ma P Yes [facility] 01-25-2015 Because of a physica l, mental, or emotional condition, do you have difficulty doing errands alone such as visiting a physician's office or shopping Yes 01/25/2015 11:16 AM EDT Lora Acuna Ma Yes [facility] Mental Status Date Assessment Result Facility 01-25-2015 Because of a physica l, mental, or emotional condition, do you have serious difficulty concentrating, remembering, or making decisions No 01/25/2015 11:16 AM EDT Lora Acuna Ma No [facility] Clinical Notes 01-04-2018 to 05-01-2025 Felix David RT(R) - 10/27/2024 11:40 AM Steven Sutton - 10/27/2024 11:29 AM Del Shultz RN - 10/27/2024 10:44 AM EDTPatient InstructionsDischarge InstructionsAttachments Note Date & Type Note Facility 05-01-2025 Note HNO ID: [id number] Author: GILMER COTTON, PhD Service: ? Author Type: Psychologist Type: Progress Notes Filed: 05/01/2025 12:14 Note Text: [facility] Progress Note Randolph Hunter 05/01/2025 [id number] PROVIDER: Gilmer Cotton, PhD CPT Code: Time: 50 minutes Setting: in person Parties Present: Patient Treatment Modality/Interventions: Cognitive Behavioral Reassurance/Supportive Insight oriented Problem solving Processing of emotions Psychoeducation MENTAL STATUS: Mood: variable, dysthymic, anxious Affect: mood-congruent Thoughts/Associations:goal directed Suicidal/Homicidal Ideation: None expressed or evidenced Other Prominent Symptoms: Therapy Focus/Content of Session: Self-care, Stress management, Mood/affect regulation, Self-esteem, and Coping with chronic illness MOOD: seems nicely alert but reports feeling lonely PLAN: work on having a DATE NIGHT w w some regularity needs things to look forward to she has mixed feelings about the help she needs and gets some chaos or things that seem logical but they do otherwise Son Harper has a nice job and spends lots of time w his father Moncho still works at the restaurant and doing well Simran has been set up for more PT and other therapies PLAN: staying physically active has always done her good GOAL: PT etc and date nights will likely help her quality of life MEDICATIONS: Per medical record: Current Outpatient Medications [...] directed once a month. blood sugar diagnostic (Debt[employer]UCH VERIO TEST STRIPS) test strip Test blood [...] Psychiatric Medication Issues: see med record DIAGNOSIS: [place] I: Depressive Disorder rec (more content not included)... [facility] 04-26-2025 Note HNO ID: [id number] Author: SOFY SAGASTUME PA-C Service: ? Author Type: Physician Barrel Filler Head Type: Progress Notes Filed: 04/26/2025 10:59 Note Text: REFERRAL SOURCE: No referring provider defined for this encounter. FOLLOWED BY: Raf Casey MD, MD REASON FOR CONSULTATION: rehabilitation consult. PRINCIPAL NEUROLOGIC DIAGNOSIS: Cerebral Palsy HISTORY OF ILLNESS: Date of Onset: BRIEF NARRATIVE DESCRIBING HISTORY: Simran Hunter is a 74-year-old female with a history of cerebral palsy, diabetes, and neuropathy, presenting with tremors, cognitive changes, and neuropathic pain. Tremors: - Tremors began in the left arm approximately one year ago - Describes tremors as uncontrollable, occurring both at rest and during movement. - Can temporarily stop tremors by physically holding the affected limb. - Fine motor skills in the left hand are significantly impaired; unable to perform tasks like peeling stickers or crocheting. this exacerbates the tremor. - No improvement in tremors since starting Lyrica. Cognitive Changes: - Notable decline in memory and speech over the past year. - Difficulty recalling names and words; speech is often delayed. - Concerns about not recognizing her in the future. - Speech therapist at the facility has noted changes in voice and difficulty drinking. - Denies any change in cognitive function since starting Lyrica. - Regularly sees Dr. Cotton, a psychological therapist, for support. Neuropathy: - Severe neuropathy in the right foot and leg following knee surgery 13-14 years ago. - Describes neuropathy as "raging" and causing significant pain. - Recently began taking Lyrica, which has provided more relief than previous medication, gabapentin. - Denies neuropathy being related to diabetes; maintains an A1c of 5.3. Cerebral Palsy: - primarily affecting the left side of the body. - no major spasms - Has been in a wheelchair since a fall on August 19, which resulted in an inability to stand. - Previously able to stand and pivot transfer; now requires a slide board for transfers. - Has fallen multiple times during transfers, most recently a couple of weeks ago. They're urging her to use [id number], but she's not comfortable. - Engages in exercises independently, including lifting a 5-pound bar daily. -not currently in PT/OT/speech Patient Entered Data PROMIS No data to display Spasticity NRS No data to display Spasm Scale No data to display Global Impression of Change No data to display Safety concerns regarding living situations and safety at home: No resides at [facility] Risk of falls: Yes during transfers Review of Systems PAST MEDICAL HISTORY Diagnosis Date CAD (coronary [...] 2003 Transcath stent init vessel percut SOCIAL HISTORY[1] FAMILY HISTORY Problem Relation Age of Onset Asthma Mother Diabetes Mother Heart Mother Cancer Mother COLON COPD Mother Hypertension Mother Osteoporosis Father Heart Father Cancer Father lung COPD Father other (AAA) Father other (brain tumor) Brother brain other (AAA) Paternal Grandfather PHYSICAL EXAMINATION: Cognitive/Behavioral: some difficulty with word finding. Mild dysarthria. Formal neuropsychological testing was not performed today. The patient did not exhibit signs of pathological anxiety or depression during the interview and examination. Strength Right Left Shoulder abduction 5 4+ Elbow flexion 5 4+ Elbow extension 5 4+ Wrist extension 5 4 Hip flexion 5 4+ Knee flexion 5 4 Knee extension (more content not included)... [facility] 03-20-2025 Note HNO ID: [id number] Author: GILMER COTTON, PhD Service: ? Author Type: Psychologist Type: Progress Notes Filed: 03/20/2025 16:09 Note Text: [facility] Progress Note Randolph Hunter 03/20/2025 [id number] PROVIDER: Gilmer Cotton, PhD CPT Code: Time: [...] grand children reading a lot .. mostly shivani flowers Anxiety : elevated perhaps since she is [...] directed once a month. blood sugar diagnostic ([employer] VERIO TEST STRIPS) test strip Test blood [...] Psychiatric Medication Issues: see med record DIAGNOSIS: Goshen I: Depressive Disorder recurrent Morbidly Obese CP Goshen II : Deferred Goshen III : See (more content not included)... [facility] 02-13-2025 Note HNO ID: [id number] Author: GILMER COTTON, PhD Service: ? Author Type: Psychologist Type: Progress Notes Filed: 02/13/2025 15:57 Note Text: [facility] Progress Note Randolph Hunter 02/13/2025 [id number] PROVIDER: Gilmer Cotton, PhD CPT Code: Time: 50 minutes Setting: Due to the federal emergency declaration and the need for ongoing mental health services, the following visit was completed virtually and informed consent obtained orally to reduce the risk of COVID-19 exposure. Oral consent to services related to virtual visits was obtained after information was sent via 60mo or read to patient if [employer] not available." Parties Present: Patient Treatment Modality/Interventions: [...] better [place] is now in apartments near [facility] 2 children ... 11 grandchildren Khadra [...] directed once a month. blood sugar diagnostic ([employer] VERIO TEST STRIPS) test strip Test blood [...] misc Check Protim (more content not included)... [facility] 01-10-2025 Note HNO ID: [id number] Author: GILMER COTTON, PhD Service: ? Author Type: Psychologist Type: Progress Notes Filed: 01/10/2025 12:09 Note Text: [facility] Progress Note Randolph Hunter 01/10/2025 [id number] PROVIDER: Gilmer Cotton, PhD CPT Code: Time: [...] directed once a month. blood sugar diagnostic ([employer] VERIO TEST STRIPS) test strip Test blood [...] Issues: No change from previous appointment DIAGNOSIS: Gos[place] I: Depressive Disorder recurrent Morbidly Obese CP Goshen II : Deferred Goshen III : See medical history Goshen IV: Health Goshen V: GAF 60-51 Moderate symptoms or moderate difficulty in (more content not included)... [facility] 12-06-2024 Note HNO ID: [id number] Author: GILMER COTTON, PhD Service: ? Author Type: Psychologist Type: Progress Notes Filed: 12/06/2024 12:04 Note Text: [facility] Progress Note Randolph Hunter 12/06/2024 [id number] PROVIDER: Gilmer Cotton, PhD CPT Code: Time: [...] Pt moved now a week at [facility] [place] so far and she believes [...] Assisted Living room while she is in [facility] MEDICATIONS: Per medical record: Current [...] directed once a month. blood sugar diagnostic ([employer] VERIO TEST STRIPS) test strip Test blood [...] Issues: No change from previous appointment DIAGNOSIS: Gos[place] I: Depressive Disorder recurrent Morbidly Obese CP Goshen II : Deferred Goshen III : See medical history Goshen IV: Health Goshen V: GAF 60-51 Moderate symptoms or moderate difficulty in social, (more content not included)... [facility] 11-08-2024 Note HNO ID: [id number] Author: SHALINI MERA RT(R) Service: ? Author [...] PATIENT PRESENTS WITH AN IMPLANTABLE OR ATTACHED DEVICE PROCESSING ENGINEER: No RADIOLOGY DEPARTMENT: MR; Exam(s) Completed: Lower MSK: Ankle/Hind Foot, left. Lavender Administered: No PERIPHERAL IV DATA: Not applicable SIGNED BY: RT Faustina(Jessica) November 08, 2024 11:14 AM [facility] 11-04-2024 Note HNO ID: [id number] Author: GILMER COTTON, PhD Service: ? Author Type: Psychologist Type: Progress Notes Filed: 11/04/2024 11:56 Note Text: [facility] Progress Note Randolph Hunter 11/04/2024 [id number] PROVIDER: Gilmer Cotton, PhD CPT Code: Time: 50 minutes Setting: Due to the federal emergency declaration and the need for ongoing mental health services, the following visit was completed virtually and informed consent obtained orally to reduce the risk of COVID-19 exposure. Oral consent to services related to virtual visits was obtained after information was sent via 60mo or read to patient if [employer] not available." Parties Present: Patient Treatment Modality/Interventions: [...] mo over a year so considering [facility] [place] is doing a walk through [...] directed once a month. blood sugar diagnostic ([employer] VERIO TEST STRIPS) test strip Test blood [...] adjustable head and (more content not included)... [facility] 10-27-2024 History of Present illness Narrative [...] PATIENT PRESENTS WITH AN IMPLANTABLE OR ATTACHED DEVICE PROCESSING ENGINEER: No RADIOLOGY DEPARTMENT: General X-ray: Exam(s) Completed: Lower Extremity X-Ray(s): Tibia Fibula, Left and Ankle, Left PERIPHERAL IV DATA: Not applicable SIGNED BY: DIXIE Chapman) October 27, 2024 11:40 AM documented in this encounter [facility] 10-27-2024 Note HNO ID: [id number] Author: FELIX DAVID RT (R) Service: Radiology Author Type: Technologist Type: Progress [...] PATIENT PRESENTS WITH AN IMPLANTABLE OR ATTACHED DEVICE PROCESSING ENGINEER: No RADIOLOGY DEPARTMENT: General X-ray: Exam(s) Completed: Lower Extremity X-Ray(s): Tibia Fibula, Left and Ankle, Left PERIPHERAL IV DATA: Not applicable SIGNED BY: RT Ari(R) October 27, 2024 11:[address] [facility] 10-27-2024 Note HNO ID: [id number] Author: STEVEN PELAEZ, ? Service: ? Author [...] (NORCO) 5-325 mg (more content not included)... [facility] 10-27-2024 History of Present illness Narrative [...] improve strength and stability. Attestation Recording using [employer] software for draft documentation of the visit was discussed with the patient/authorized chemical sales representative; all questions welcomed and answered. Patient/authorized chemical sales representative agreed to proceed Steven Pelaez [...] and injured herself. She is currently at [facility]. Has a history of cerebral palsy with left sided decreased sensation, but states that when she stands or puts pressure on the foot she is still having pain. XRay of left ankle was done 09/18/24. ИРИНА 12/15/23 documented in this encounter [facility] 10-27-2024 Instructions Steven Pelaez - [...] the rehab center. documented in this encounter [facility] 10-27-2024 Note HNO ID: [id number] Author: DEL ISBELL RN Service: ? Author [...] and injured herself. She is currently at [facility]. Has a history of cerebral palsy with left sided decreased sensation, but states that when she stands or puts pressure on the foot she is still having pain. XRay of left ankle was done 09/18/24. ИРИНА 12/15/23 [facility] 10-19-2024 History of Present illness Narrative [...] directed once a month. blood sugar diagnostic ([employer] VERIO TEST STRIPS) test strip Test blood [...] Status Change Penicillins Hives Dioxicillin Promethazine Intolerance Ngmczll-Rem-Vis Red* Myalgia PAST MEDICAL HISTORY PAST MEDICAL [...] which included preparing to see the patient, [id number]-[id number] patient care, completing clinical documentation, obtaining and/or [...] these instructions. Informed Consent Consent Obtained: Verbal [place] Protocol A moment to CARE was completed. [...] Mendel Sharma PA-C documented in this encounter [facility] 10-19-2024 Note HNO ID: [id number] Author: MENDEL SHARMA PA-C Service: ? Author Type: Physician Barrel Filler Head Type: Progress Notes Filed: 10/19/2024 10:43 Note [...] directed once a month. blood sugar diagnostic ([employer] VERIO TEST STRIPS) test strip Test blood [...] breathe hourly while awake. PT/INR test meter ([facility]) misc Check Protime weekly. Dx: [...] Status Change Penicillins Hives Dioxicillin Promethazine Intolerance Csbaqnq-Dju-Xjk Red* Myalgia PAST MEDICAL HISTORY PAST MEDICAL HISTORY Diagnosis Date CAD (coronary artery disease) Carotid artery stenosis Cerebral palsy (HCC) Chronic depressive personality disorder Diarrhea Dyslipidemia Edema bilat Hirsutism Hypertension Hypothyroid Insomnia Migraines (more content not included)... [facility] 10-10-2024 Note HNO ID: [id number] Author: TRAVIS PATTERSON APRN.CORRUGATED FASTENER DRIVER Service: ? Author Type: Nurse Practitioner Type: Progress Notes Filed: 10/10/2024 16:06 Note Text: Connected Care Unit Progress Note Patient Name: Randolph Hunter Patient Facility: [facility] Admit Date 09/28/2024 Level of Care: [...] vital signs Monitor labs 9. Atherosclerosis of [place] coronary artery of [place] heart without angina pectoris - ICD9: 414.01, [...] 9:30 AM MENDEL SHARMA [facility] [phone] 11/04/2024 11:00 AM GILMER COTTON [facility] [phone] 12/06/2024 11:00 AM GILMER COTTON [facility] [phone] 12/07/2024 3:40 PM RAVI MICHAEL [facility] [phone] HPI: (Per hospital discharge) Admission Information ADMIT [...] inability to stand pivot necessitating going to shelter facility for rehab SUMMARY OF WHAT HAPPENED WHILE I WAS IN THE HOSPITAL: Orthopedics agrees no surgical intervention now resume exercises when you get to the shelter facility no ligamentous injury evident on CT [...] embolism (HCC) 2011 SLE (systemic lupus erythematosus) ([facility]) Type II or unspecified type diabetes mellitus [...] for weakness. Medication (more content not included)... [facility] 10-10-2024 History of Present illness Narrative Images from the original note were not included. Connected Care Unit Progress Note Patient Name: Randolph Hunter Patient Facility: [facility] Admit Date 09/28/2024 Level of Care: [...] vital signs Monitor labs 9. Atherosclerosis of [place] coronary artery of [place] heart without angina pectoris - ICD9: 414.01, [...] Dept Phone 10/19/2024 9:30 AM MENDEL SHARMA [facility] [phone] 11/04/2024 11:00 AM GILMER COTTON [facility] [phone] 12/06/2024 11:00 AM GILMER COTTON [facility] [phone] 12/07/2024 3:40 PM RAVI MICHAEL [facility] [phone] HPI: (Per hospital discharge) Admission Information ADMIT [...] inability to stand pivot necessitating going to shelter facility for rehab SUMMARY OF WHAT HAPPENED WHILE I WAS IN THE HOSPITAL: Orthopedics agrees no surgical intervention now resume exercises when you get to the shelter facility no ligamentous injury evident on CT [...] GFR- 59 mL/min/1.73 m2 >60 L Final [id number]-PFZ-MORYKCQ 49 mL/min/1.73 m2 >60 L Final Stage [...] today,10/10/2024 This note was partially generated using [employer] voice recognition system, and there may be some incorrect words, spellings, and punctuation that were not noted in checking the note before saving. Electronically signed by Travis Patterson APRN.JOHN documented in this encounter [facility] 10-05-2024 Note HNO ID: [id number] Author: TRAVIS PATTERSON APRN.JOHN Service: ? Author Type: Nurse Practitioner Type: Progress Notes Filed: 10/05/2024 16:20 Note Text: Connected Care Unit Progress Note Patient Name: Randolph Hunter Patient Facility: [facility] Admit Date 09/28/2024 Level of Care: [...] vital signs Monitor labs 9. Atherosclerosis of e[place] coronary artery of [place] heart without angina pectoris - ICD9: 414.01, [...] Phone 10/19/2024 9:30 AM MENDEL SHARMA [facility] [phone] 11/04/2024 11:00 AM GILMER COTTON [facility] [phone] HPI: (Per hospital discharge) Admission Information ADMIT [...] inability to stand pivot necessitating going to shelter facility for rehab SUMMARY OF WHAT HAPPENED WHILE I WAS IN THE HOSPITAL: Orthopedics agrees no surgical intervention now resume exercises when you get to the shelter facility no ligamentous injury evident on CT [...] weakness. Medications: Medications (more content not included)... [facility] 10-05-2024 History of Present illness Narrative Images from the original note were not included. Connected Care Unit Progress Note Patient Name: Randolph Hunter Patient Facility: [facility] Admit Date 09/28/2024 Level of Care: [...] vital signs Monitor labs 9. Atherosclerosis of [place] coronary artery of [place] heart without angina pectoris - ICD9: 414.01, [...] Phone 10/19/2024 9:30 AM MENDEL SHARMA [facility] [phone] 11/04/2024 11:00 AM GILMER COTTON [facility] [phone] HPI: (Per hospital discharge) Admission Information ADMIT [...] inability to stand pivot necessitating going to shelter facility for rehab SUMMARY OF WHAT HAPPENED WHILE I WAS IN THE HOSPITAL: Orthopedics agrees no surgical intervention now resume exercises when you get to the shelter facility no ligamentous injury evident on CT [...] today,10/05/2024 This note was partially generated using [employer] voice recognition system, and there may be some incorrect words, spellings, and punctuation that were not noted in checking the note before saving. Electronically signed by Travis Patterson APRN.CORRUGATED FASTENER DRIVER documented in this encounter [facility] 09-30-2024 Note HNO ID: [id number] Author: TRAVIS PATTERSON APRN.JOHN Service: ? Author Type: Nurse Practitioner Type: Progress Notes Filed: 09/30/2024 13:49 Note Text: Connected Care Unit Progress Note Patient Name: Randolph Hunter Patient Facility: [facility] Admit Date 09/28/2024 Level of Care: [...] vital signs Monitor labs 9. Atherosclerosis of e[place] coronary artery of ekw[place] heart without angina pectoris - ICD9: 414.01, [...] Dept Phone 10/04/2024 11:00 AM GILMER COTTON [facility] [phone] 10/19/2024 9:30 AM MENDEL SHARMA [facility] [phone] 11/04/2024 11:00 AM GILMER COTTON [facility] [phone] HPI: (Per hospital discharge) Admission Information ADMIT DATE: 09/18/2024 DISCHARGE DATE: 09/28/2024 MY DOCTORS AND MEDICAL TEAM: My Main Hospital Doctor: Sage Loera MD Primary Care Provider: Raf Casey MD, MD My Medical Team Members: Treatment Team: Attending Provider: Sage Leora MD MY CONDITION AT DISCHARGE: Stable REASON I WAS IN THE HOSPITAL: Debility from cerebral palsy with acute left knee pain without fracture and inability to stand pivot necessitating going to shelter facility for rehab SUMMARY OF WHAT HAPPENED WHILE I WAS IN THE HOSPITAL: Orthopedics agrees no surgical intervention now resume exercises when you get to the shelter facility no ligamentous injury evident on CT [...] history (unchanged) Revi (more content not included)... [facility] 09-30-2024 History of Present illness Narrative Images from the original note were not included. Connected Care Unit Progress Note Patient Name: Randolph Hunter Patient Facility: [facility] Admit Date 09/28/2024 Level of Care: [...] vital signs Monitor labs 9. Atherosclerosis of e[place] coronary artery of ekw[place] heart without angina pectoris - ICD9: 414.01, [...] Dept Phone 10/04/2024 11:00 AM GILMER COTTON [facility] [phone] 10/19/2024 9:30 AM MENDEL SHARMA [facility] [phone] 11/04/2024 11:00 AM GILMER COTTON [facility] [phone] HPI: (Per hospital discharge) Admission Information ADMIT [...] inability to stand pivot necessitating going to shelter facility for rehab SUMMARY OF WHAT HAPPENED WHILE I WAS IN THE HOSPITAL: Orthopedics agrees no surgical intervention now resume exercises when you get to the shelter facility no ligamentous injury evident on CT [...] which included preparing to see the patient, vbey-zo-wfcq patient care, completing clinical documentation, obtaining and/or reviewing separately obtained history, performing a medically appropriate examination, counseling and educating the patient/family/caregiver, ordering medications, tests, or procedures, communicating with other HCPs (not separately reported), independently interpreting results (not separately reported), communicating results to the patient/family/caregiver, and care coordination (not separately reported). It This note was partially generated using [employer] voice recognition system, and there may be some incorrect words, spellings, and punctuation that were not noted in checking the note before saving. Electronically signed by Travis Patterson APRN.JOHN documented in this encounter [facility] 09-28-2024 Note HNO ID: [id number] Author: KATERIN RICH RN Service: Care Management Author Type: Registered Nurse Type: Care Mgt Progress Note Filed: 09/28/2024 15:06 Note Text: CARE MANAGEMENT DISCHARGE NOTE SERVICE DATE: September 28, 2024 SERVICE TIME: 3:04 PM Admission Date: 09/18/2024 LOS: 0 days Discharge Arrangement Discharge Arrangement: Fdc Facility Was an expedited discharge program used?: No Services Arranged Provider Name: [facility] Caregiver Assessment Caregiver is ready, willing and able to meet the patient's needs as recommended by the inter-professional team: Yes Name of Caregiver: [facility] Transportation Arrangements Transportation Arrangements: Ambulance Transportation Agency and Phone #:: [facility] [phone] Date of Trip: 09/28/24 Time of Trip: 1630 Type of Service: BLS Non-emergency Is Patient Medicaid Pending?: No Was transportation financial coverage discussed with family?: Patient Foreign Language Interpreter Location: [place] Destination: [facility] Financial Care Management Responsibility: None Handoff Communication: Handoff to: Primary Care Physician Primary Care Physician Name/Phone: Raf Casey MD - [phone] Additional Information: Orders received for patient to discharge to SNF. [facility] is able to accept patient today. Precert approval received. Patient agreeable to discharge plan. Ambulance transport via [facility] at 1630. Envelope prepared. Bedside RN updated. SIGNATURE: Katerin Rich RN PATIENT NAME: Randolph Hunter DATE: September 28, 2024 TIME: 3:03 PM [facility] 09-28-2024 Note HNO ID: [id number] Author: KATERIN RICH RN Service: Care Management Author Type: Registered Nurse Type: Care Mgt Progress Note Filed: 09/28/2024 11:21 Note Text: CARE MANAGEMENT PROGRESS NOTE SERVICE DATE: 09/28/2024 SERVICE TIME: 10:07 AM LOS: 0 days Needs Prior to Discharge: To Be Determined EMR reviewed. CM called and left VM for Ping Ramsey from the [facility] ([phone]) in regards to determination of PASRR. Awaiting return call. CM will follow. 11:00 AM Left VM for [facility] in regards to determination of PASRR. Awaiting return call. Per [employer] website noted status is completed. CM will follow. 11:21 AM SNF reviewed results in [facility] website and are able to accept patient today. CM will follow. SIGNATURE: Katerin Rich RN PATIENT NAME: Randolph Hunter DATE: September 28, 2024 TIME: 10:07 AM [facility] 09-27-2024 Note HNO ID: [id number] Author: SAGE LOERA MD Service: Hospital Medicine Author Type: Physician Type: Progress Notes Filed: 09/27/2024 18:30 Note Text: DEPARTMENT OF HOSPITAL MEDICINE PROGRESS NOTE SERVICE DATE: 09/27/2024 SERVICE TIME: 5:44 PM Hospital Medicine/Primary Attending: Sage Loera MD NIGHT AND WEEKEND COVERAGE: [place] COVERAGE: Nights: [phone], please page [place] Hospitalist Night coverage pager [phone]. Probable discharge: Disposition: [facility]-shelter facility Consultants: PROCEDURES: NONE CODE STATUS: Full code ACCEPTS BLOOD PRODUCTS: YES : ASSESSMENT/PLAN Reason for Admission: Fall in patient with cerebral palsy who being unable to bear weight to transfer will need shelter home placement Anticoagulation: Prior to admission: Warfarin [...] (cerebral palsy) (HCC) (POA: Yes) --Presented to [place] ED for evaluation of left knee pain [...] lupus erythematosus) (HCC) (POA: Yes) --Plaquenil as WARP CLAMPER Type 2 diabetes, controlled, with neuropathy (HCC) [...] recurrent Date Noted: 10/17/2009 CP (cerebral palsy) ([facility]) Date Noted: 03/29/2007 Hypomagnesemia Date Noted: 09/25/2024 [...] ED fo (more content not included)... [facility] 09-27-2024 Note HNO ID: [id number] Author: SHERYL HUITRON, NAWAF Service: Care Management Author Type: Registered Nurse Type: Care Mgt Progress Note Filed: 09/27/2024 14:00 Note Text: CARE MANAGEMENT PROGRESS NOTE SERVICE DATE: 09/27/2024 SERVICE TIME: 1:50 PM LOS: 0 days HENS.OH checked and no determination noted on PASRR at this time. NAWAF LOPEZ called Ping Ramsey from the [facility] Board of . She confirms she completed bedside visit yesterday she checked and states she has not received any updates at this time. NAWAF LOPEZ provided direct contact and [employer] for her call with update. [facility] confirmed that insurance authorization/precert was obtained and valid until 09/29/24. SNF: [facility] updated in [facility] Transitions. Discharge Transportation: Medical Transport envelope on Chart. NAWAF LOPEZ updated patient. CM dept to follow. SIGNATURE: Sheryl Huitron RN PATIENT NAME: Randolph Hunter DATE: September 27, 2024 TIME: 1:50 PM [facility] 09-26-2024 Note HNO ID: [id number] Author: SAGE LOERA MD Service: Hospital Medicine Author Type: Physician Type: Progress Notes Filed: 09/26/2024 14:40 Note Text: DEPARTMENT OF HOSPITAL MEDICINE PROGRESS NOTE SERVICE DATE: 09/26/2024 SERVICE TIME: 1:37 PM Hospital Medicine/Primary Attending: Sage Loera MD NIGHT AND WEEKEND COVERAGE: [place] COVERAGE: Nights: [phone], please page [place] Hospitalist Night coverage pager [phone]. Probable discharge: Disposition: [facility]-shelter facility Consultants: PROCEDURES: NONE CODE STATUS: Full code ACCEPTS BLOOD PRODUCTS: YES : ASSESSMENT/PLAN Reason for Admission: Fall in patient with cerebral palsy who being unable to bear weight to transfer will need shelter home placement Anticoagulation: Prior to admission: Warfarin [...] (cerebral palsy) (HCC) (POA: Yes) --Presented to [place] ED for evaluation of left knee pain [...] lupus erythematosus) (HCC) (POA: Yes) --Plaquenil as WARP CLAMPER Type 2 diabetes, controlled, with neuropathy (HCC) [...] symptoms, skin (more content not included)... [facility] 09-26-2024 Note HNO ID: [id number] Author: SHERYL HUITRON, RN Service: Care Management Author Type: Registered Nurse Type: Care Mgt Progress Note Filed: 09/26/2024 15:07 Note Text: CARE MANAGEMENT PROGRESS NOTE SERVICE DATE: 09/26/2024 SERVICE TIME: 9:41 AM LOS: 0 days 09/18/24 Admission Hospital Consults: PT. OT. O2: room air Diet: regular + supplements 09/22/24 PT recommended: SNF 09/22/24 OT recommended: SNF Discharge Plan: Fdc Facility SNF: [facility] - Able to Accept Precert was obtained and valid 09/23-09/25. Needs Precert for SNF. PT AND OT messaged to request updated evaluations today. [facility] updated via secure message to [place] LOBO/SD site checked - No updates on determination. NAWAF LOPEZ called and left voice message for Ping Ramsey [phone]. Service and Support Administration request call back with update on determination. 09/26/24 9:38 AM NAWAF LOPEZ attempted another call to Ping Ramsey-No Answer/Voice Mail Box - no new message left at this time. Needs Prior to Discharge: To Be Determined, OT/PT Evaluation, Insurance Authorization, Precertification, Discharge Transportation ([facility] Level II Reveiw - Determination.) NAWAF LOPEZ met with patient at bedside to update her on discharge planning. CM Dept to Follow. 09/26/24 12:50PM RN JESSICA called Ping Ramsey from the [facility]. She informs CM that they can not see the review in there system. 09/26/24 1:00 PM NAWAF LOPEZ called and spoke with Ravi Multani [phone] from the [facility] He informs CM that review needs to go to the community health and they should be able to see the referral. RN JESSICA called Ping Ramsey back to inform her. She states she still is unable to see and states if she not receive it by end of day today she will reach out to Ravi Multani tomorrow. CM Dept to follow. 09/26/24 2:08 PM Ping Ramesy from [facility] called CM to update her that she will be completing bedside visit today between 300PM and 400PM. [facility] tasked to start insurance authorization/precert. CM Dept to follow. SIGNATURE: Sheryl Huitron RN PATIENT NAME: Randolph Hunter DATE: September 26, 2024 TIME: 9:41 AM [facility] 09-25-2024 Note HNO ID: [id number] Author: SAGE LOERA MD Service: Hospital Medicine Author Type: Physician Type: Progress Notes Filed: 09/25/2024 16:17 Note Text: DEPARTMENT OF HOSPITAL MEDICINE PROGRESS NOTE SERVICE DATE: 09/25/2024 SERVICE TIME: 12:48 PM Hospital Medicine/Primary Attending: Sage Loera MD NIGHT AND WEEKEND COVERAGE: [place] COVER[employer]: Nights: [phone], please page [facility] Night coverage pager [phone]. Probable discharge: Disposition: [facility]-shelter facility Consultants: PROCEDURES: NONE CODE STATUS: Full code ACCEPTS BLOOD PRODUCTS: YES : ASSESSMENT/PLAN Reason for Admission: Fall in patient with cerebral palsy who being unable to bear weight to transfer will need shelter home placement Anticoagulation: Prior to admission: Warfarin [...] (cerebral palsy) (HCC) (POA: Yes) --Presented to [facility] for evaluation of left knee pain [...] lupus erythematosus) (HCC) (POA: Yes) --Plaquenil as WARP CLAMPER Type 2 diabetes, controlled, with neuropathy (HCC) [...] pain, palpitati (more content not included)... [facility] 09-24-2024 Note HNO ID: [id number] Author: SAGE LOERA MD Service: Hospital Medicine Author Type: Physician Type: Progress Notes Filed: 09/25/2024 12:46 Note Text: DEPARTMENT OF HOSPITAL MEDICINE PROGRESS NOTE SERVICE DATE: 09/25/2024 SERVICE TIME: 12:10 PM Hospital Medicine/Primary Attending: Sage Loera MD NIGHT AND WEEKEND COVERAGE: [place] C[employer]: Nights: [phone], please page [facility] Night coverage pager [phone]. Probable discharge: Disposition: [facility]-shelter facility Consultants: PROCEDURES: NONE CODE STATUS: Full code ACCEPTS BLOOD PRODUCTS: YES : ASSESSMENT/PLAN Reason for Admission: Fall in patient with cerebral palsy who being unable to bear weight to transfer will need shelter home placement Anticoagulation: Prior to admission: Warfarin [...] (cerebral palsy) (HCC) (POA: Yes) --Presented to [facility] for evaluation of left knee pain [...] lupus erythematosus) (HCC) (POA: Yes) --Plaquenil as [place]ARP CLAMPER Type 2 diabetes, controlled, with neuropathy (HCC) [...] changes, peripheral edema, paresthesia or focal weaknesses. [facility] Course: HDS, afebrile. Labs unremarkable. Imaging including XR L KNEE/HIP/ANKLE negative for fracture. CT L KNEE negative for fracture, small joint effusion noted. The patient was admitted under (more content not included)... [facility] 09-23-2024 Note HNO ID: [id number] Author: CONCEPCION KEEN MD Service: Hospital Medicine Author Type: Physician Type: Progress Notes Filed: 09/23/2024 17:37 Note Text: DEPARTMENT OF HOSPITAL MEDICINE PROGRESS NOTE SERVICE DATE: 09/23/2024 SERVICE TIME: 5:34 PM Hospital Medicine/Primary Attending: Concepcion Keen,* NIGHT AND WEEKEND COVERAGE: [place] C[employer]: Days: [phone], please page attending physician. Nights: [phone], please page [facility] Night coverage pager [phone]. Subjective INTERVAL HPI: Seen and examined on [...] Drain Duration External Collection Device 09/18/24 2332 [facility] 4 days Reviewed lines and needs [...] (cerebral palsy) (HCC) (POA: Yes) --Presented to [facility] for evaluation of left knee pain after a fall at home, non-ambulatory at baseline secondary to CP but concerns for current facility ability to meet her needs --XR L KNEE/HIP/ANKLE negative for acute osseous injury -- (more content not included)... [facility] 09-23-2024 Note HNO ID: [id number] Author: SHERYL HUITRON, RN Service: Care Management Author Type: Registered Nurse Type: Care Mgt Progress Note Filed: 09/23/2024 16:53 Note Text: CARE MANAGEMENT PROGRESS NOTE SERVICE DATE: 09/23/2024 SERVICE TIME: 8:09 AM LOS: 0 days Discharge Plan: Fdc Facility SNF: [facility] - : Able to Accept. [facility] tasked to start insurance precert for SNF. [place] PAS[place] completed. Level II Review Required. Determination: Pending. Discharge Transportation: Medical Transport - COT Transport Envelope on Chart SNF [facility]. Needs Prior to Discharge: To Be Determined, Insurance Authorization, Precertification, Discharge Transportation (PASRR Level II Determination) CM Dept to Follow. 09/23/24 11:46 AM [facility] confirms Precert Obtained: Patient has been APPROVED to admit to [facility] in the [facility] Portal starting 09/23-09/25 NRD 09/25 Auth ID [id number]. [place] PAS[place] Level II Review Determination is Still Pending. SNF: [facility] - Updated in [facility] Transitions. They can not accept until they receive the PASRR determination. CM dept to Follow. 09/23/24 4:52 PM RN CM checked [place] PAS[place] Document ID : [id number] - Still Pending Level II Determination. CM Dept to follow. SIGNATURE: Sheryl Huitron RN PATIENT NAME: Randolph Hunter DATE: September 23, 2024 TIME: 8:08 AM [facility] 09-22-2024 Note HNO ID: [id number] Author: CONCEPCION KEEN MD Service: Hospital Medicine Author Type: Physician Type: Progress Notes Filed: 09/22/2024 12:13 Note Text: DEPARTMENT OF HOSPITAL MEDICINE PROGRESS NOTE SERVICE DATE: 09/22/2024 SERVICE TIME: 12:12 PM Hospital Medicine/Primary Attending: Concepcion Keen,* NIGHT AND WEEKEND COVERAGE: [place] COVER[employer]: Days: [phone], please page attending physician. Nights: [phone], please page [facility] Night coverage pager [phone]. Subjective INTERVAL HPI: Seen and examined on [...] Drain Duration External Collection Device 09/18/24 2332 [facility] 3 days Reviewed lines and needs [...] (cerebral palsy) (HCC) (POA: Yes) --Presented to [facility] for evaluation of left knee pain after a fall at home, non-ambulatory at baseline secondary to CP but concerns for current facility ability to meet her needs --XR L KNEE/HIP/ANKLE negative for acute osseous injury --CT L KNEE negative for fracture, small joint eff (more content not included)... [facility] 09-22-2024 Note HNO ID: [id number] Author: CONCEPCION KEEN MD Service: Care Management [...] problems. * Attending Physician: Concepcion Keen,* [facility] 09-22-2024 Note HNO ID: [id number] Author: SHERYL HUITRON RN Service: Care Management Author Type: Registered Nurse Type: Care Mgt Progress Note Filed: 09/22/2024 15:17 Note Text: CARE MANAGEMENT PROGRESS NOTE SERVICE DATE: 09/22/2024 SERVICE TIME: 8:35 AM SNF Referrals: [facility] - Pending [facility] Fdc AND Rehab - Able to Accept [facility] - [facility] - Able to Accept Patients SNF 1st choice is pending. RN CM updated Referral and requested update on acceptance. PT AND OT messaged to request updates for Precert. Patient has been updated that [facility] is still pending. Discharge Transportation: To be Determined. Needs Prior to Discharge: Accepting Facility, OT/PT Evaluation, Insurance Authorization, Precertification, Discharge Transportation CM Dept to Follow. 09/22/24 3:10 PM [facility] - Able to Accept PASR Completed in COUNTS INCLUDE 234 BEDS AT THE [facility] - Level II Review Required. NAWAF LOPEZ called the [facility] [phone] Option 2 Service and Support Administration and spoke with Ping Ramsey at [phone]. She checked and informed CM that it has not been received from [facility] at this time. She reports she it [...] September 22, 2024 TIME: 8:35 AM [facility] 09-21-2024 Note HNO ID: [id number] Author: GILMER COTTON, PhD Service: ? Author Type: Psychologist Type: Progress Notes Filed: 09/21/2024 17:07 Note Text: [facility]al Health Department Progress Note Randolph Hunter 09/21/2024 [id number] PROVIDER: Gilmer Cotton, PhD CPT Code: Time: 30 minutes Setting: Due to the federal emergency declaration and the need for ongoing mental health services, the following visit was completed virtually and informed consent obtained orally to reduce the risk of COVID-19 exposure. Oral consent to services related to virtual visits was obtained after information was sent via 60mo or read to patient if [employer] not available." Phone ... no access to [...] PRN Psychiatric Medication Issues: as noted DIAGNOSIS: [place] I: Depressive Disorder recurrent Morbidly Obese CP Gos[place] II : Deferred Goshen III : See medical history Goshen IV: Health Gos[place] V: GAF 60-51 Moderate symptoms or moderate difficulty in social, occupational or school functioning TREATMENT PROGRESS/ASSESSMENT: Fluctuating progress. TREATMENT PLAN/GOALS: Continue in therapy focusing on self-care, stress management, affect management, anxiety management, and self-esteem. Next appointment: as scheduled Gilmer Cotton, PhD [facility] 09-21-2024 Note HNO ID: [id number] Author: CONCEPCION KEEN MD Service: Hospital Medicine Author Type: Physician Type: Progress Notes Filed: 09/21/2024 16:30 Note Text: DEPARTMENT OF HOSPITAL MEDICINE PROGRESS NOTE SERVICE DATE: 09/21/2024 SERVICE TIME: 4:28 PM Hospital Medicine/Primary Attending: Concepcion Keen,* NIGHT AND WEEKEND COVERAGE: [place] COVER[employer]: Days: [phone], please page attending physician. Nights: [phone], please page [facility] Night coverage pager [phone]. Subjective INTERVAL HPI: Seen and examined on [...] Drain Duration External Collection Device 09/18/24 2332 [facility] 2 days Reviewed lines and needs [...] (cerebral palsy) (HCC) (POA: Yes) --Presented to [facility] for evaluation of left knee pain after a fall at home, non-ambulatory at baseline secondary to CP but concerns for current facility ability to meet her needs --XR L KNEE/HIP/ANKLE negative for acute osseous injury --CT L KNEE negative for fracture, small joint effusion noted --[place] (more content not included)... [facility] 09-21-2024 Note HNO ID: [id number] Author: SHERYL HUITRON, RN Service: Care Management Author Type: Registered Nurse Type: Care Mgt Progress Note Filed: 09/21/2024 10:53 Note Text: CARE MANAGEMENT PROGRESS NOTE SERVICE DATE: 09/21/2024 SERVICE TIME: 9:19 AM LOS: 0 days Patient requesting a SNF Provider List for Sean: [id number]. [facility] SNF Provider List for Sean given to patient at bedside. Needs Prior to Discharge: To Be Determined, Facility or Agency Choices, Accepting Facility, Insurance Authorization, Precertification, Discharge Transportation CM Dept to Follow. 09/21/24 10:50 AM Patient provided SNF choices in order of preference: [facility] Fdc AND Rehab [facility] SNF Referrals sent in [facility]. Precert Needed for SNF. CM Dept to Follow. SIGNATURE: Sheryl Huitron RN PATIENT NAME: Randolph Hunter DATE: September 21, 2024 TIME: 9:19 AM [facility] 09-21-2024 Note HNO ID: [id number] Author: SHERYL HUITRON, RN Service: Care Management Author Type: Registered Nurse Type: Care Mgt Progress Note Filed: 09/21/2024 08:53 Note Text: CARE MANAGEMENT PROGRESS NOTE SERVICE DATE: 09/21/2024 SERVICE TIME: 8:38 AM LOS: 0 days 09/18/24 Admission Hospital Consults: PT. OT. O2: room air Diet: regular + supplement 09/19/24 PT recommended SNF 09/20/24 OT recommended SNF RN JESSICA met with patient at bedside to discuss discharge planning. RN JESSICA discussed PT AND OT recommendations for SNF. [facility] SNF provider list given to patient. Patient informed she needs to provide 3 SNF choices in order of preference and she will require an insurance authorization/precert for SNF once she has an accepting SNF. [place] of Choice Given: Yes Level of Care Discussed: Fdc Facility Financial Disclosure Provided: Yes Financial Disclosure Comments: [facility] SNF Provider Lists [id number] an [id number] given to patient at bedside to review and provide SNF choices. Provider List: Fdc Facility Provider list within the patient's requested geographic area shared with the patient/family: Yes within: 15 miles of zip code: [address] (Patient also requesting a list for zip code [address].) Quality and resource use metrics shared with [...] September 21, 2024 TIME: 8:38 AM [facility] 09-20-2024 Note HNO ID: [id number] Author: CONCEPCION KEEN MD Service: Hospital Medicine Author Type: Physician Type: Progress Notes Filed: 09/20/2024 16:05 Note Text: DEPARTMENT OF HOSPITAL MEDICINE PROGRESS NOTE SERVICE DATE: 09/20/2024 SERVICE TIME: 4:04 PM Hospital Medicine/Primary Attending: Concepcion Keen,Serjio NIGHT AND WEEKEND COVERAGE: [place] COVER[employer]: Days: [phone], please page attending physician. Nights: [phone], please page [facility] Night coverage pager [phone]. Subjective INTERVAL HPI: Seen and examined on [...] Drain Duration External Collection Device 09/18/24 2332 [facility] 1 day Reviewed lines and needs [...] (cerebral palsy) (HCC) (POA: Yes) --Presented to [facility] for evaluation of left knee pain after a fall at home, non-ambulatory at baseline secondary to CP but concerns for current facility ability to meet her needs --XR L KNEE/HIP/ANKLE negative for acute osseous injury --CT L KNEE negative for fracture, small joint effusion noted --Pain control as needed. On Lidoderm patch, Tylenol. Added oxycodone (more content not included)... [facility] 09-19-2024 Note HNO ID: [id number] Author: CONCEPCION KEEN MD Service: Hospital Medicine Author Type: Physician Type: Progress Notes Filed: 09/19/2024 14:41 Note Text: DEPARTMENT OF HOSPITAL MEDICINE PROGRESS NOTE SERVICE DATE: 09/19/2024 SERVICE TIME: 2:33 PM Hospital Medicine/Primary Attending: Concepcion Keen,* NIGHT AND WEEKEND COVERAGE: [place] COVER[employer]: Days: [phone], please page attending physician. Nights: [phone], please page [facility] Night coverage pager [phone]. Subjective INTERVAL HPI: Seen and examined on [...] Drain Duration External Collection Device 09/18/24 2332 [facility] <1 day Reviewed lines and needs [...] (cerebral palsy) (HCC) (POA: Yes) --Presented to [facility] for evaluation of left knee pain [...] consulted for (more content not included)... [facility] 09-19-2024 Note HNO ID: [id number] Author: JADE SPARROW RN Service: Care Management Author Type: Registered Nurse Type: Care Mgt Initial Assessment Filed: 09/19/2024 10:28 Note Text: CARE MANAGEMENT: ASSESSMENT AND DISCHARGE PLAN SERVICE DATE: September 19, 2024 SERVICE TIME: 10:26 AM PCP: Raf Casey MD, MD Primary Contact: Extended Emergency Contact Information Primary Emergency Contact: Harper Hunter (HCPOA) Mobile Relation: Son Admission Status: Observation Insurance Provider: [facility] DUAL COMPLETE HMO POS SNP Discharge Planning requested by: Per Department Practice Potential Transition Plans To Be Determined Advance Directives Current Advance Directive: Health Care Power of Reporting Analyst, Living Will In Chart: Yes Up To Date and Valid: Yes Current Living Arrangements and Support Lives with: Spouse/significant other Type of Residence: Assisted Living Facility Does the patient have to climb stairs at home?: No Care Facility Name: [facility] Support: Children, Spouse/significant other How do you manage to accomplish the following: Independent: Medication Management Needs Assistance: Bathe/Shower, Dress, Going to the bathroom Dependent: Ambulation, Meals/Meal Prep, Transportation to appointments/community Current Services/Equipment Current Post-Acute Service(s): DME Current DME Type: Wheelchair-manual, Other: See Comment, Bedside commode (Lift Chair) Discharge Planning Patient Goal(s): Increase strength [place] of Choice Explained: [place] of Choice Given: No Reason Not Given: Unable to complete with this assessment - revisit Are you interested in bedside delivery of your medications? No Discharge Planning Participant(s): Patient Patient/Family Comments: Caregiver Assessment: Caregiver is ready, willing and able to meet the patient's needs as recommended by the inter-professional team: Other: See Comment (From [facility]) Transport at Discharge: Transportation Arrangements: Ambulance Needs Prior to Discharge: Needs Prior to Discharge: OT/PT Evaluation Post-Acute Discharge Plan: Review of the chart and met with the patient. The patient states she lives with her at [facility] in [place]. States pivots from her lift chair to her wheelchair and able to pivot from her wheelchair to her BSC. The patient states the [facility] provides her meals and laundry services, the patient takes care of her own medications. PT evals- Pending. CM department will continue to follow for DC needs. SIGNATURE: Jade Sparrow RN PATIENT NAME: Randolph Hunter DATE: September 19, 2024 TIME: 10:26 AM [facility] 09-02-2024 Note HNO ID: [id number] Author: GILMER COTTON, PhD Service: ? Author Type: Psychologist Type: Progress Notes Filed: 09/02/2024 12:02 Note Text: [facility] Department Progress Note Randolph Hunter 09/02/2024 [id number] PROVIDER: Gilmer Cotton, PhD CPT Code: Time: 50 minutes Setting: Due to the federal emergency declaration and the need for ongoing mental health services, the following visit was completed virtually and informed consent obtained orally to reduce the risk of COVID-19 exposure. Oral consent to services related to virtual visits was obtained after information was sent via 60mo or read to patient if [employer] not available." Parties Present: Patient Treatment Modality/Interventions: [...] directed once a month. blood sugar diagnostic ([employer] VERIO TEST STRIPS) test strip Test blood [...] daily. calcium car (more content not included)... [facility] 08-05-2024 Note HNO ID: [id number] Author: GILMER COTTON, PhD Service: ? Author Type: Psychologist Type: Progress Notes Filed: 08/05/2024 12:29 Note Text: [facility] Department Progress Note Randolph Hunter 08/05/2024 [id number] PROVIDER: Gilmer Cotton, PhD CPT Code: Time: [...] directed once a month. blood sugar diagnostic ([employer] VERIO TEST STRIPS) test strip Test blood [...] Psychiatric Medication Issues: see med record DIAGNOSIS: [place] I: Depressive Disorder recurrent Morbidly Obese CP Goshen II : Deferred Gos[place] III : See medical history Gos[place] IV: Health [place] V: GAF 60-51 Moderate symptoms or moderate difficulty in social, o (more content not included)... [facility] 07-10-2024 Emergency department Note Pt resting quietly in bed with blanket over face. Respirations even and non labored. No coughing noted at this time. Await transport by [facility]. [facility] 07-10-2024 Emergency department Note Pt resting quietly in bed with blanket over face. Respirations even and non labored. No coughing noted at this time. Await transport by Vasquezkristin MolinaBicycle Therapeuticsrobles. Dr. Jha at bedside. Dr. Jha to [...] TABLET Place under the tongue. NYSTATIN (MYCOSTATIN) 357403 UNIT/GM POWDER Apply topically 2 times daily. [...] Stress: Stress Concern Present (01/02/2020) Re[facility] - Occupational Stress Questionnaire [...] chest [facility]. [facility], to include gabapentin and [place] Chest x-ray negative for consolidation upon my independent interpretation. Patient still coughing after glucagon but coughing ceased after Decadron. The patient will be discharged The patient is in agreement with this plan. Diagnoses as of 07/10/24202 Acute cough Medications glucagon (human recombinant) injection 1 mg (1 mg IntraMUSCular Given 07/09/240) dexAMETHasone (PF) (Decadron) injection 8 mg (8 mg Oral Given 07/10/24 0024) REVAL: CRITICAL CARE TIME None CONSULTS: None PROCEDURES: Unless otherwise noted below, none Procedures FINAL IMPRESSION 1. Acute cough DISPOSITION Discharge 07/10/2024 12:55:44 AM PATIENT REFERRED TO: [facility] Address: [address] [place], [place] [id number] Schedule an appointment as soon as possible [...] Jha MD 07/10/24202 documented in this encounter [facility] 07-10-2024 Hospital Discharge instructions Александр Jha MD - 07/10/2024 12:56 AM EST If the Tessalon Perles do not work, you may purchase cough syrup [id number]. Please return to the emergency department if your symptoms change or worsen. The following attachments cannot be sent through Care Everywhere.Cough in Adults (American)documented in this encounter [facility] 07-10-[address] Jha at bedside. [facility] 07-09-[address] Jha to bedside. Pt given water. [facility] 07-09-2024 Physician Emergency department Note EMERGENCY [...] TABLET Place under the tongue. NYSTATIN (MYCOSTATIN) 184042 UNIT/GM POWDER Apply topically 2 times daily. [...] Stress: Stress Concern Present (01/02/2020) Received from [facility] - Occupational Stress Questionnaire Feeling of Stress : Rather much Social Connections: Moderately Isolated (01/02/2020) [facility] Social Connection and Isolation Panel [NHANES] Frequency [...] chest x-ray. [facility], to include gabapentin and [place] Chest x-ray negative for consolidation upon my [...] Discharge 07/10/2024 12:55:44 AM PATIENT REFERRED TO: [facility] Address: [address] [place] [address], [place] [address] Schedule an appointment as soon as possible [...] Emergency Medicine Provider Александр Jha MD 07/10/24202 [facility] 06-30-2024 Note HNO ID: [id number] Author: GILMER COTTON, PhD Service: ? Author Type: Psychologist Type: Progress Notes Filed: 06/30/2024 11:53 Note Text: [facility] Department Progress Note Randolph Hunter 06/30/2024 [id number] PROVIDER: Gilmer Cotton, PhD CPT Code: Time: 50 minutes Setting: Due to the federal emergency declaration and the need for ongoing mental health services, the following visit was completed virtually and informed consent obtained orally to reduce the risk of COVID-19 exposure. Oral consent to services related to virtual visits was obtained after information was sent via 60mo or read to patient if Acccess Technology Solutionshart not available." Parties Present: Patient Treatment Modality/Interventions: [...] the Meetings and can work w the [employer] That may likely help her mood in [...] directed once a month. blood sugar diagnostic (ComplyMDTOUCH VERIO TEST STRIPS) test strip Test blood [...] test meter ([place] (more content not included)... [facility] 05-02-2024 Note HNO ID: [id number] Author: GILMER COTTON, PhD Service: ? Author Type: Psychologist Type: Progress Notes Filed: 05/02/2024 12:11 Note Text: [facility] Progress Note Randolph Rascon Hunter 05/02/2024 [id number] PROVIDER: Gilmer Cotton, PhD CPT Code: Time: [...] directed once a month. blood sugar diagnostic (ComplyMDTOUCH VERIO TEST STRIPS) test strip Test blood [...] breathe hourly while awake. PT/INR test meter (MoMelan TechnologiesCHEK XS PRO) misc Check Protime weekly. Dx: pulmonary embolism, V58.61 COMPOUNDED PRESCRIPTION Hospital bed all electric with adjustable head and feet. 415.19; 343.8; 782.3; 787.91; V43.65 No current facility-administered medications for this visit. Psychiatric Medication Issues: No change from previous appointment DIAGNOSIS: [place] I: Depressive Disorder recurrent Morbidly Obese CP [place] II : Deferred [place] III : See medical history [place] IV: Health [place] V: GAF 60-51 Moderate symptoms or moderate difficulty in social, occupational or school functioning TREATMENT PROGRESS/ASSESSMENT: Progressing satisfactorily. TREATMENT PLAN/GOALS: (more content not included)... [facility] 02-10-2024 History of Present illness Narrative [...] Test Results/Process Orders 10 [] Staff telephones CYBER DEFENSE ANALYST, Nursing Homes/Clarify Orders 10 [] Routine Transfer [...] with plan . documented in this encounter [facility] 02-10-2024 Hospital Discharge instructions Maria Isabel Wilson RN - 02/10/2024 10:45 AM EDT Ordered treatment completed and patient is healed. Patient discharged without any issues. All questions answered. Call the clinic if your wound reopens or a new wound appears at [phone]. Edema/Swelling: Avoid standing for long periouds of [...] promote wound healing documented in this encounter [facility] 01-27-2024 History of Present illness Narrative Associated Order(s): Debridement Post-Procedure Diagnose(s): Pressure ulcer of right foot, stage 3 (HCC) Images from the original note were not included. [facility] Wound Care Progress Note CHIEF COMPLAINT: [...] provider verified the correct patient, procedure, equipment, mission support specialist, and site/side marked as required. [...] attached Discharge Instructions documented in this encounter [facility] 01-27-2024 Hospital Discharge instructions Maria Isabel Wilson RN - 01/27/2024 1:15 PM EDT Follow-up Appointments: Return Appointment in 1 week. Call [facility] at [phone], [facility] at [phone], or [facility] center at [phone]. Edema/Swelling: Avoid standing for long periouds of [...] secure with tape. documented in this encounter [facility] 01-27-2024 Note [facility] Wound Care Progress Note CHIEF COMPLAINT: [...] provider verified the correct patient, procedure, equipment, mission support specialist, and site/side marked as required. [...] Paper tape Please see attached Discharge Instructions [facility] 01-20-2024 History of Present illness Narrative Associated Order(s): Debridement Post-Procedure Diagnose(s): Pressure ulcer of right foot, stage 3 (HCC) Images from the original note were not included. [facility] WND OSTOMY [address] [place] [address] Loc: [phone] Wound Care Visit - New Patient Progress [...] ti,es a day, Disp: , Rfl: HYDROcodone-acetaminophen ([place]) 5-325 MG tablet, Take 1 tablet by [...] the tongue., Disp: , Rfl: nystatin (Mycostatin) 294043 UNIT/GM powder, Apply topically 2 times daily., [...] by: Isaac Chicas DO Authorized by: Isaac Chcias, DO Consent Consent obtained? verbal Consent given by: patient Risks discussed? procedural risks discussed Immediately prior to the procedure a time out was called and the performing provider verified the correct patient, procedure, equipment, mission support specialist, and site/side marked as required. [...] (Active) Wound Image 01/20/24 1448 Site Assessment Red;[place] 01/20/24 1448 Andra-Wound Assessment [place] 01/20/24 1448 [...] Results/Process Orders 10 [x] Staff telephones [facility], Nursing Homes/Clarify Orders 10 [] Routine [...] or more Points) documented in this encounter [facility] 01-20-2024 Hospital Discharge instructions Maria Isabel Wilson RN - 01/20/2024 2:45 PM EDT Follow-up Appointments: Return Appointment in 1 week. Call [facility] at [phone], [facility] at [phone], or [facility] center at [phone]. Edema/Swelling: Avoid standing for long periouds of [...] secure with tape. documented in this encounter [facility] 01-20-2024 Note Encounter addended b y: Tania Osei RN on: 01/21/2024 10:33 AM Actions taken: Care Teams modified, LDA properties accepted, Charge Capture section accepted [facility] 12-16-2023 Emergency department Note Patient wheeled out ED for transport to residence. discharge instructions sent to facility with patient. No further questions. Respirations even and non labored. No acute distress. A&O x4. Gifty Cornell RN 12/16/23 0015 [facility] 12-16-2023 Emergency department Note Patient wheeled [...] Concern Present (01/02/2020) Received from [facility] - Occupational Stress Questionnaire [...] about putting in her observation unit at [facility] for 24 hours of IV antibiotics versus [...] MD 12/15/231935 Patient to room 7 via [facility] for c/o a left foot ulcer, lower leg erythema, and a headache. Patient reports she has had her foot ulcer for a couple of months. V/S obtained, call light within reach. documented in this encounter [facility] 12-15-2023 Hospital Discharge instructions Karen Gallardo [...] Care Everywhere.Cellulitis (Skin Infection) Discharge Instructions, Adult (American)documented in this encounter [facility] 12-15-2023 Emergency department Triage note Patient to room 7 via [facility] for c/o a left foot ulcer, lower leg erythema, and a headache. Patient reports she has had her foot ulcer for a couple of months. V/S obtained, call light within reach. [facility] 12-15-2023 Physician Emergency department Note EMERGENCY [...] Resource Strain: Low Risk (01/02/2020) Re[facility] Overall Financial Resource Strain (CARDIA) [...] Stress: Stress Concern Present (01/02/2020) Received from [facility] - Occupational Stress Questionnaire [...] [BM] ED Course User Index [BM] Gloria Bangura, Diagnoses as of 12/15/231848 Diabetic ulcer of [...] Emergency Medicine Provider Gloria Bangura DO 12/15/231848 [facility] 12-15-2023 Physician Emergency department Note This [...] about putting in her observation unit at [facility] for 24 hours of IV antibiotics versus discharging home with oral antibiotics. After shared decision-making she elected to go home. I do think that this is a safe plan. She lives in assisted living and they can help her with continuing to monitor her wound. Gave her strict return precautions and discharged in stable condition. Karen Gallardo MD 12/15/231935 [facility] 07-20-2023 Emergency department Note Physician's arrived; pt removed from urine collection device and pts own attends placed on pt per her request. Pts belongings in bag at bedside. Report to Physician's. Veronika Bae RN 07/20/23 0844 [facility] 07-20-2023 Emergency department Note Physician's arrived; [...] still in radiology. Pia Caraballo RN 07/19/23 3538 Dispo per imaging :) Chasidy Fernandez RN 07/19/23 2253 Pt placed up for discharge. No discharge paperwork complete at this time. Once orders are complete and discharge paperwork complete by ER DR Pt will be discharged. Chasidy Fernandez RN 07/19/232251 This RN requested orders from ER DR. Chasidy Fernandez RN 07/19/232025 EMERGENCY DEPARTMENT ENCOUNTER Pt Name: Randolph Hunter Birthdate 1950 Date of evaluation: 07/19/2023 ED Provider: Cuba nAna MD CHIEF COMPLAINT Chief Complaint Patient presents [...] No family history. She lives in a shelter facility and is on Coumadin as she [...] Height: 1.575 m (5' 2") Medications HYDROcodone-acetaminophen ([place]) 5-325 MG per tablet 1 tablet (has no administration in time range) HYDROcodone-acetaminophen ([place]) 5-325 MG per tablet 1 tablet (1 tablet Oral Given 07/19/232030) 72-year-old female presents for frequent falls, is in a fpc for this purpose, complains of right hip pain and right knee pain and neck pain MDM elements: The patient presented with chief complaint of see above. The differential diagnosis associated with this patient's presentation includes right hip pain from contusion versus fracture of the right hip versus pelvic fracture. Will evaluate bilateral knees for underlying fractures. Patient is on Coumadin and fails Spanish CT head rules and CT C-spine rules by virtue of age, needs CT head and CT cervical spine as well. Pain controlled with [place]. No lab work required, this was mechanical fall to which the patient is very vulnerable and for which purpose she is in a fpc with PT and 24/7 wheelchair. Our workup consisted of ordering/reviewing: X-ray bilateral knees x-ray right femur CT pelvis without contrast, CT head and neck without contrast. To aid in management, I performed an independent interpretation of Xray(s) see below CT scan(s) see below. I also reviewed external records from [facility] to obtain collateral history. The patient [...] this is why she lives in a fpc with 24/7 monitoring and physical therapy that visits her every day. I encouraged her to stay in her wheelchair to get around safely, and if she is transferring from the wheelchair to the toilet or other maneuvers at home, she should do so with nursing staff or PT nearby. She is already on [place] at home for pain so no additional [...] Mendez who is her osteoarthritis specialist in [place]; this is very good follow-up. The patient [...] toilet when she fell. She resides at [address] She currently is working with a physical therapist and is in a wheelchair. Patient hooked up to [employer] due to incontinence. She also has right knee bruising that is from her repeatedly hitting it on her wheelchair. She denies hitting her head or neck during fall. She is on coumadin. Call light within reach. documented in this encounter [facility] 07-20-2023 Emergency department Note [facility] an ambulette/wheelchair van. Chasidy MCCRACKEN spoke with Physician's to inform them that the pt is non ambulatory and needed a stretcher. Physician's states they will have a stretcher here "within the hour." Veronika Bae RN 07/20/23 0717 [facility] 07-20-2023 Hospital Discharge instructions Cuba Anna [...] attachments cannot be sent through Care Everywhere.Osteoarthritis (American)Preventing Falls in Older Adults (American)Hip Pain ED (American)documented in this encounter [facility] 07-20-2023 Emergency department Note Patient pressed call light to request pain medication. States pain is in shoulders and down the back from laying on the tables. notified Gifty Cornell RN 07/20/[address] [facility] 07-19-2023 Emergency department Note Report given to Gifty MCCRACKEN & Chasidy MCCRACKEN. Patient still in radiology. Pia Caraballo RN 07/19/[address] [facility] 07-19-2023 Emergency department Note Dispo per imaging :) Chasidy Fernandez RN 07/19/232253 [facility] 07-19-2023 Emergency department Note Pt placed up for discharge. No discharge paperwork complete at this time. Once orders are complete and discharge paperwork complete by ER DR Pt will be discharged. Chasidy Fernandez RN 07/19/232251 [facility] 07-19-2023 Emergency department Note This RN requested orders from ER DR. Chasidy Fernandez RN 07/19/23[address] [facility] 07-19-2023 Emergency department Triage note Patient is here for right hip pain. She was transferring to the toilet when she fell. She resides at [address] She currently is working with a physical therapist and is in a wheelchair. Patient hooked up to [employer] due to incontinence. She also has right knee bruising that is from her repeatedly hitting it on her wheelchair. She denies hitting her head or neck during fall. She is on coumadin. Call light within reach. [facility] 07-19-2023 Physician Emergency department Note EMERGENCY [...] No family history. She lives in a shelter facility and is on Coumadin as she [...] Height: 1.575 m (5' 2") Medications HYDROcodone-acetaminophen ([place]) 5-325 MG per tablet 1 tablet (has no administration in time range) HYDROcodone-acetaminophen ([place]) 5-325 MG per tablet 1 tablet (1 tablet Oral Given 07/19/232030) 72-year-old female presents for frequent falls, is in a fpc for this purpose, complains of right hip pain and right knee pain and neck pain MDM elements: The patient presented with chief complaint of see above. The differential diagnosis associated with this patient's presentation includes right hip pain from contusion versus fracture of the right hip versus pelvic fracture. Will evaluate bilateral knees for underlying fractures. Patient is on Coumadin and fails Spanish CT head rules and CT C-spine rules by virtue of age, needs CT head and CT cervical spine as well. Pain controlled with [place]. No lab work required, this was mechanical fall to which the patient is very vulnerable and for which purpose she is in a fpc with PT and 24/7 wheelchair. Our workup consisted of ordering/reviewing: X-ray bilateral knees x-ray right femur CT pelvis without contrast, CT head and neck without contrast. To aid in management, I performed an independent interpretation of Xray(s) see below CT scan(s) see below. I also reviewed external records from [facility] to obtain collateral history. The patient [...] this is why she lives in a fpc with 24/7 monitoring and physical therapy that visits her every day. I encouraged her to stay in her wheelchair to get around safely, and if she is transferring from the wheelchair to the toilet or other maneuvers at home, she should do so with nursing staff or PT nearby. She is already on [place] at home for pain so no additional [...] Mendez who is her osteoarthritis specialist in [place]; this is very good follow-up. The patient [...] Medicine Provider Cuba Anna MD 07/20/23 0110 [facility] 09-06-2022 Emergency department Note RN called back from Residence for report after patient left. This RN updated RN. No questions or concerns Lucy Jones RN 09/06/22 111 [facility] 09-06-2022 Emergency department Note RN called back from Residence for report after patient left. This RN updated RN. No questions or concerns Lucy Jones RN 09/06/22 111 This RN attempted report at [facility] for patient. RN's busy, executive secretary took RN name and number to return call for report if wanted. Lucy Jones RN 09/06/22 1018 DM ETA 20-30 min ([phone]) Lucy Jones RN 09/06/22 0953 Patient resting [...] in stable condition. Bárbara Hogan RN 09/06/22 022 Report of to bárbara Younger RN 09/06/22220 Emergency Department Encounter Location: [facility] EM[facility] Patient: Patsy Juan : [...] 445 ms QTC Interval 457 ms P [place] 49 degrees QRS Gos[place] -29 degrees T Wave [place] 11 degrees GA Interval 149 ms XR shoulder 2+ views [...] Result Upper pelvis is excluded from the sgmsx-ku-xizn. No fracture or dislocation of the imaged [...] [employer] Osman Mccormack MD 09/06/22 1523 Emergency Department Encounter Location: [facility] EM[facility] Patient: Patsy Juan : [...] 445 ms QTC Interval 457 ms P [place] 49 degrees QRS [place] -29 degrees T Wave [place] 11 degrees GA Interval [address] head wo IV [...] Result Upper pelvis is excluded from the uwsso-vy-dotu. No fracture or dislocation of the imaged [...] RN 09/06/22 0221 documented in this encounter [facility] 09-06-2022 Emergency department Note This RN attempted report at [facility] for patient. RN's busy, executive secretary took RN name and number to return call for report if wanted. Lucy Jones RN 09/06/22 1018 [facility] 09-06-2022 Emergency department Note DM ETA 20-30 min ([phone]) Lucy Jones RN 09/06/22 0953 [facility] 09-06-2022 Hospital Discharge instructions Gloria Frost [...] through Care Everywhere.Getting Up From a Fall (American)documented in this encounter [facility] 09-06-2022 Emergency department Note Patient resting with eyes closed. Respirations even and unlabored. RN called about work order for call light / panel. Will be there soon to fix. Lucy Jones RN 09/06/22 0944 [facility] 09-06-2022 History of Present illness Narrative Department of Trauma / Critical Care Tertiary Survey Date of Trauma: 09/06/2022 1:36 AM MARIANELA/HPI: 72 y.o. female status post fall from standing. The incident happened around 0120 on 09/06/22 at [facility]. When the event happened the patient was [...] 09/06/2022 [facility] 1950 [id number] Exam Date/Time: 09/06/2022 02:47 Procedure: XR SHOULDER [...] note: Upper pelvis is excluded from the sqvlm-jf-ritk. COMPARISON: None. FINDINGS: There is no evidence for fracture or dislocation. The hips joints are unremarkable. The imaged sacroiliac joints are normal. No bone lesion is identified. There is no soft tissue abnormality. Surgical clips project over the right groin. Upper pelvis is excluded from the hqlck-dn-rqqv. No fracture or dislocation of the imaged [...] 09/06/22 9:09 AM documented in this encounter [facility] 09-06-2022 Emergency department Note Pt back in room Lucy Jones RN 09/06/22 0832 [facility] 09-06-2022 Emergency department Note Pt at CT Lucy Jones RN 09/06/22 0826 [facility] 09-06-2022 Emergency department Note Patient yelling [...] this time Lucy Jones RN 09/06/22 0739 [facility] 09-06-2022 Note NOTE: This result is for medical treatment only. Analysis performed using non-forensic procedures. [facility] 09-06-2022 Emergency department Note Pt to x-ray in stable condition. Bárbara Hogan RN 09/06/22225 [facility] 09-06-2022 Emergency department Note Report of to bárbara Younger RN 09/06/22220 [facility] 09-06-2022 Emergency department Note Bed: 23 Expected date: Expected time: Means of arrival: Comments: SX TEAM Aaron Wallace RN 09/06/22220 [facility] 09-06-2022 Physician Emergency department Note Emergency Department Encounter Location: [facility] Patient: Patsy Juan : [...] 445 ms QTC Interval 457 ms P [place] 49 degrees QRS [place] -29 degrees T Wave [place] 11 degrees GA Interval 149 ms XR shoulder 2+ views [...] Result Upper pelvis is excluded from the etazg-qa-dfup. No fracture or dislocation of the imaged [...] words are mis-transcribed.) OSMAN MCCORMACK MD [facility] Osman Mccormack MD 09/06/22 1523 [employer] Phone: 09-06-2022 Physician Emergency department Note Emergency Department Encounter Location: [facility] EM[facility] Patient: Patsy Juan : [...] 445 ms QTC Interval 457 ms P [place] 49 degrees QRS [place] -29 degrees T Wave [place] 11 degrees GA Interval [address] head wo IV [...] Result Upper pelvis is excluded from the fogmv-ip-pvxm. No fracture or dislocation of the imaged [...] Solutions Gloria Frost DO Resident 09/06/22 1314 [employer] Phone: 04-25-2022 Miscellaneous Notes Left a detailed message for patient. Let her know that new PCP will need to be notified if there is issues with filling medicaiton. Advised to contact office with questions. I will send patient a hike message asking about PCP. I think she is now seeing a physician at her assisted living facility. Images from the original note were not included. DENIED. Isabela Petit LPN Prior Authorization has been completed online at [employer] for Cycanocobalamin, will await response. WILLIS- [email or web address] Please keep encounter open until final decision has been received and documented from insurance company. Isabela Petit LPN documented in this encounter [facility] 03-12-2022 Note Hospitalist Discharg e [...] results reviewed, no signs of osteomyelitis. Appreciate jai alai player recommendations On the day of discharge patient's [...] MG extended re (more content not included)... [facility] 03-12-2022 Hospital course Narrative Images from [...] results reviewed, no signs of osteomyelitis. Appreciate jai alai player recommendations On the day of discharge patient's [...] as: DESYREL Vitamin D3 50 MCG (1999 GA) Caps warfarin 5 MG tablet Commonly known as: COUMADIN STOP taking these medications furosemide 20 MG tablet Commonly known as: LASIX guaiFENesin 600 MG extended release tablet Commonly known as: MUCINEX Where to Get Your Medications These medications were sent to [address] [phone] - F [phone] [place] [id number] amoxicillin-clavulanate 875-125 MG per tablet doxycycline hyclate 100 MG capsule polyethylene glycol 17 g packet Recommended Follow-up: No follow-up provider specified. Readmission Risk Risk of Unplanned Readmission: 16 Complexity of Follow up: [] Moderate Complexity: follow up within 7-14 calendar days (37396) [x] Severe Complexity: follow up within 7 calendar days (67425) Follow up Testing, Pending results or Referrals [...] MD Division of Hospitalist Medicine Inpatient Medical Services/[facility] 03/12/2022, 2:01 PM Images from the original [...] results reviewed, no signs of osteomyelitis. Appreciate jai alai player recommendations On the day of discharge patient's [...] Your Medications These medications were sent to [address] [phone] - F [phone] [place] [address] amoxicillin-clavulanate 875-125 MG per tablet doxycycline hyclate 100 MG capsule polyethylene glycol 17 g packet Recommended Follow-up: No follow-up provider specified. Readmission Risk Risk of Unplanned Readmission: 15 Complexity of Follow up: [] Moderate Complexity: follow up within 7-14 calendar days (68533) [x] Severe Complexity: follow up within 7 calendar days (23569) Follow up Testing, Pending results or Referrals [...] MD Division of Hospitalist Medicine Inpatient Medical Services/[facility] 03/11/2022, 1:36 PM documented in this encounter [facility] Phone: 03-11-2022 History of Present illness Narrative [facility] called this nurse to change time of rock picker. Pt agreed to stay till morning. This nurse called [place] [phone] to inform about new rock picker time of 9:30 am. Report called to Nurse Copeland at [facility]. Occupational Therapy Facility/Department: [facility] Occupational Therapy Daily Treatment Note Name: Randolph Hunter : 1950 Date of Service: 03/11/2022 Pt's chart reviewed. Holding therapy today due to >5 INR. Will continue to follow and re-attempt once within therapeutic range. Dianne Schuster OT Physical Therapy Facility/Department: [facility] Daily Treatment Note Name: Randolph Hunter : 1950 Date of Service: 03/11/2022 Pt's chart reviewed. Holding therapy today due to >5 INR. Will continue to follow and re-attempt once within therapeutic range. Jaida Matamoros PTA Occupational Therapy Facility/Department: [facility] Occupational Therapy Initial Assessment Name: [...] Social/Functional History Social/Functional History Lives With: Spouse (Luttrell.) Type of Home: Assisted living Home Layout: [...] Assistance: Non-ambulatory Transfer Assistance: Needs assistance Active Sports Coordinator: No Patient's Sports Coordinator Info: daughter Mode of Transportation: Car Education: na Occupation: Retired Type of Occupation: worked at [employer] Objective Heart Rate: 68 Heart Rate Source: [...] 0-100% Score: 53.32 (03/10/22 1444) ADL Inpatient [facility] G-Code Modifier : CK (03/10/22 1444) Goals Short Term Goals Time Frame for [...] were not included. Hospitalist Progress Note 03/10/2022 [id number]: Please page me ([phone]) for patient care issues. [phone]: Please page [facility] night Hospitalist for any issues. [...] results reviewed, no signs of osteomyelitis. Appreciate jai alai player recommendations Pharmacy is managing Coumadin dosing. -am labs, replace lytes prn -increase activity -DVT prophylaxis: [] Lovenox [] Heparin [] SCDs [x] Encourage ambulation [x] Already on Anticoagulation Advance Directive: Limited Discharge planning: TBD Demetris Stone MD Division of Hospitalist Medicine Inpatient Medical Services/[facility] PAGER: [phone] Occupational Therapy Facility/Department: [facility] Occupational Therapy Initial Assessment Name: [...] Will follow. Thank you. Physical Therapy Facility/Department: [facility] Physical Therapy Initial Assessment Name: [...] Social/Functional History Social/Functional History Lives With: Spouse (L[place]tre[place].) Type of Home: Assisted living Home Layout: [...] Assistance: Non-ambulatory Transfer Assistance: Needs assistance Active Sports Coordinator: No Patient's Sports Coordinator Info: daughter Mode of Transportation: Car Education: na Occupation: Retired Type of Occupation: worked at [employer] Vision/Hearing Vision Vision: Within Functional Limits Vision [...] to side-step toward the HOB. Able to finance professional FWW for 10 seconds with moderate assistance for balance. Balance Posture: Fair Sitting - Static: Good;- Sitting - Dynamic: Good;- Standing - Static: Poor Standing - Dynamic: Poor OutComes Score AM-PAC Score [facility] Inpatient Mobility Raw Score : 12 (03/09/22 1316) AM-PAC Inpatient T-Scale Score : 35.33 (03/09/22 1316) Mobility Inpatient CMS 0-100% Score: 68.66 (03/09/22 1316) Mobility Inpatient [facility] G-Code Modifier : CL (03/09/22 131) Tinneti [...] note were not included. Hospitalist Progress Note 03/09/20226995028-4829: Please page me ([phone]) for patient care issues. [phone]: Please page [facility] night Hospitalist for any [...] MD Division of Hospitalist Medicine Inpatient Medical Services/[facility] P[facility]: [phone] Pharmacy Vancomycin Consult Follow-Up Note Current Dosin [...] 1500 q 24 Pharmacy Note Vancomycin Consult Non-[employer]S [employer]LECT[employer]IC W[employer] OFFICER patients Randolph Hunter is a 71 y.o. [...] results reviewed, no signs of osteomyelitis. Appreciate jai alai player recommendations On the day of discharge patient's [...] Your Medications These medications were sent to [address] P [phone] - F [phone] [place] [address] (more content not included)... [facility] 03-11-2022 Hospital Discharge instructions Cleo Graff LPN - 03/11/2022 11:55 AM EDT Your physician has ordered skilled home care services for you. Your home care will be provided by: [facility] [phone] Viktoriya Danielson RN - 03/11/2022 5:43 PM [...] Mobile Relation: Child Secondary Emergency Contact: JohanAdam ([facility]) Mobile Relation: Spouse Past Surgical History: [...] Dependent Dressing Dependent Toileting Dependent Feeding Independent Route Sales Delivery Driver Assisted Med Delivery whole Wound Care Documentation [...] 800 [Urine:800] Safety Concerns: { FARHAN Safety Concerns:010665487} Impairments/Disabilities: { FARHAN Impairments/Disabilities:848325640 } Nutrition Therapy: Current Nutrition Therapy: - [...] applicable) Name: Address: Dialysis Schedule: Phone: Fax: Spool Maker/Patch Setter signature: {Esignature:037774951} PHYSICIAN SECTION Prognosis: {Prognosis:7188155962} Condition at Discharge: { Patient Condition:069129128} Rehab Potential (if transferring to Rehab): {Prognosis:5381145140} Recommended Labs or Other Treatments After Discharge: Physician Certification: I certify the above information and transfer of Randolph Hunter is necessary for the continuing treatment of the diagnosis listed and that she requires {Admit to Appropriate Level of Care:85306} for {GREATER/LESS:097869676} 30 days. Update Admission H&P: {CHP DME Changes in HandP:432528623} PHYSICIAN SIGNATURE: {Esignature:395879705} documented in this encounter [facility] Work Phone: 03-06-2022 Instructions Steven Freirealesha - 03/06/2022 9:21 AM EDT Would recommend natalia to left foot daily Continue with padding on dressing to eliminate pressure Would highly recommend use of heel boots while sleeping to prevent pressure sores from developing. documented in this encounter [facility] 03-06-2022 History of Present illness [...] the wound may be improving. PAIN EVALUATION 03/06/2022901 Pain Level: 8 Pain Location: Foot-Left Description: Numbness;Shooting Duration Units: Weeks Frequency: Continuous Intervention/Comfort measure: Medication Comments: using natalia to wound and wrapping with gauze Hemoglobin A1C Date Value Ref Range Status 08/15/2021 6.4 (H) 4.3 - 5.6 % Final Comment: [place] [employer] guidelines indicate that patients with [...] directed once a month. 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, controlled, with neuropathy ([facility]) PLAN: Ulceration of left foot appears smaller [...] prevent getting pressure sores of heel Steven Peleaz DPM Patient presents with: Left Foot - Follow Up, Ulcer AMB ROOMING INTAKE FLOWSHEET DATA Risk Screening Do you have concerns about personal safety or safety in the home?: No Pain Pain Level: 8 Pain Location: Foot-Left Description: Numbness, Shooting Duration Units: Weeks Frequency: Continuous Intervention/Comfort measure: Medication Comments: using natalia to wound and wrapping with gauze documented in this encounter [facility] 02-28-2022 Miscellaneous Notes Patient called in requesting order for wound care. Patient stated that she is at a assisted living facility and they stated by law they most have and order from physician to preform wound care. Please place order. Erlinda Ramsey LPN documented in this encounter [facility] 02-27-2022 History of Present illness Narrative Patient daughter picked up natalia. Erlinda Ramsey LPN documented in this encounter [facility] 02-27-2022 Miscellaneous Notes Returned patients call. Informed patient that her daughter can come rock picker natalia we will just have to [...] instructions. Patient can come to office to rock picker natalia. We will schedule a nurse visit. Erlinda Ramsey LPN Images from the original note were not included. Steven Matamoros RN; [facility] Pod[facility] Pool 52 minutes ago (3:52 PM) I have not yet ordered the natalia to pharmacy. If she wishes to rock picker at office, that may be the easiset option Steven Pelaez DPM Patient called in asking if Natalia has been sent to pharmacy? Patient asking if she can come by and rock picker Natalia from the office? Patient states she had to cancel this morning's appointment because her transportation never showed. Patient asking for order for Natalia to be sent to [facility]. Rescheduled follow up appointment for 03/06. documented in this encounter [facility] 02-12-2022 Miscellaneous Notes Patient called in looking for results. Message from Dr. Pelaez given to patient. She verbalized understanding. documented in this encounter [facility] 02-10-2022 History of Present illness [...] 2022 9:22 AM documented in this encounter [facility] 02-10-2022 Instructions Steven Pelaez - 02/10/2022 8:37 AM EDT Recommend natalia to left foot ulceration daily Would recommend placing a donut hole pad on insert to offload ulceration when wearing shoes. Color ulceration with magic marker Step on insert Place pad around marking at site of ulceration Follow-up in 2 weeks Use loyda wraps for swelling reduction. documented in this encounter [facility] 02-10-2022 History of Present illness Narrative Chief Complaint: This 71 year old female who presents with chief complaint:ulceration of left 1st metatarsal HPI Patient presents to clinic for evaluation of left foot. Patient has ulceration to the plantar aspect of left 1st metatarsa. It apparently has been present for 1.5 months. She has been seeing a jai alai player in [place] who has been debriding and applying topical antibiotic cream. Patient is not currently wearing surgical shoe. She had similar ulceraiton last year and was treated with natalia. When she mentioned this to her jai alai player, she was referred here. She was advised [...] directed once a month. blood sugar diagnostic (DebtMarketUCH VERIO TEST STRIPS) test strip Test blood [...] H* Mental Status Change Penicillins Hives Dioxicillin Lfecqfy-Ozx-Gng Red* Myalgia PAST SURGICAL HISTORY Procedure Laterality [...] 2 diabetes mellitus, with fat layer exposed ([facility]) PLAN: 1. History and physical examination performed. [...] weeks Steven Pelaez DPM Podiatry [address] [facility] [address] Dept: [phone] Dept AMB ROOMING INTAKE FLOWSHEET DATA Risk [...] Erlinda Ramsey LPN documented in this encounter [facility] 11-30-2021 Miscellaneous Notes Left a [...] days. INR is 2.4, Taking 7.5mg Mon, Thu, 5.0mg all other days, no change in diet, no missed doses, no change in medication, no unusual bruising/bleeding. Bonnie Allen LPN documented in this encounter [facility] 11-19-2021 Miscellaneous Notes Detailed message [...] or narrative: no documented in this encounter [facility] 11-11-2021 Miscellaneous Notes Patient calling [...] no diet changes. documented in this encounter [facility] 10-30-2021 Miscellaneous Notes Patient notified [...] or narrative: no documented in this encounter [facility] 10-15-2021 Miscellaneous Notes Left a detailed message with information listed below. Ava Rdz LPN Left a message for pt to call the office and ask to speak to a triage nurse. Ava Rdz LPN Same dose, Recheck 2 weeks. ThanksEdwin PA-C Last INR: INR (POCT) 2.1 10/15/2021 Current dose of coumadin is: 7.5 mg Thu and Thursday. 5 mg all other days. Last date of dose change: 09/11/21. Previous INR (date and result): 10/08/21 2.1 Additional Clinical Information or narrative: no nothing to report. Denies any bleeding, bruising, change in appetite, missed doses, been on ATBs. Ava Rdz LPN documented in this encounter [facility] 10-15-2021 Miscellaneous Notes Spoke with pt and went over the results. Pt verbalizes understanding. Ava Rdz LPN documented in this encounter [facility] 10-14-2021 History of Present illness [...] 2021 3:03 PM documented in this encounter [facility] 10-09-2021 Miscellaneous Notes Pt called [...] Patient calls and states that her previous car sales consultant had moved out of country. Patient states that she is in process of moving into assisted living and the [facility] will see her in regards to this. Patient asking if this can be filled for a 30 day supply? Please review and advise, Lexi Arce RN TC to pt. LM to call office, ask for triage nurse to get updates. Travis Chambers LPN Cisco Consultant accepting patient transfer should refill medication. Who are the current and future providers? We generally don't prescribe this medication. Thanks, Edwin Cobian PA-C Pt is asking if provider will order this medication for her for 1 month. She states her car sales consultant will not refill it for her because [...] 08/31/2019 45 Please advise. Thank you. Del Decker, RN documented in this encounter [facility] 10-08-2021 Miscellaneous Notes Patient instructed of dosage with teach back method. Verbalizes understanding. Same dose, recheck 2 weeks. Thanks, RUMA Owusu-C Last INR: INR (POCT) 2.1(EXT) 10/08/2021 Current [...] or bleeding issues. documented in this encounter [facility] 10-01-2021 Miscellaneous Notes Patient instructed of dosage with teach back method. Verbalizes understanding. Same. Recheck one week Last INR: INR (POCT) 2.6(EXT) 10/01/2021 Current dose of coumadin is: 7.5 mg W/, and 5.0 mg every other day. Last date of dose change: 09/11/2021. Previous INR (date and result): 09/25/21 and 2.2 Additional Clinical Information or narrative: yes: no changes in diet denies increase in greens or alcohol use, no missed doses, no antibiotics, no increased bruising or bleeding issues. documented in this encounter [facility] 10-01-2021 Miscellaneous Notes Refaxed form [...] call and advise. documented in this encounter [facility] 09-27-2021 Miscellaneous Notes Patient notified of results, verbalizes understanding of instructions. Travis Chambers LPN Thyroid is improving but still slightly low. Can we change synthroid to 150 mcg and recheck tsh in six weeks documented in this encounter [facility] 09-26-2021 Instructions Baudilio Sultana MD [...] usual activities immediately. documented in this encounter [facility] 09-26-2021 History of Present illness Narrative Patient presents with: Physical: moving into assisted living HPI: Patient presents today for office visit for follow up. Needs forms completed for assisted living facility[facility] in [place]. She is both excited and nervous about the move. Will be transitioning to [facility]. She asked us to do the [place] through October until the new physician has [...] directed once a month. blood sugar diagnostic (DebtMarketUCH VERIO TEST STRIPS) test strip Test blood [...] H* Mental Status Change Penicillins Hives Dioxicillin Pwlcoiu-Gsc-Zcz Red* Myalgia PAST MEDICAL HISTORY Diagnosis Date [...] CONSULT TO PHYSICAL THERAPY - CONSULT TO BUILDER'S LABOURER 2. Carotid artery disease, unspecified laterality, unspecified [...] physician and prn. documented in this encounter [facility] 09-25-2021 Miscellaneous Notes Patient notified and voiced understanding. Roxann Gomez MA Same recheck one week Patient called in with home INR. Last INR: INR (POCT) 2.2 (ext) 09/25/2021 Current dose of coumadin is: 7.5 mg on and Thu, 5 mg all other days. Previous INR (date and result): 1.9 on 09/11/21 Additional Clinical Information or narrative: no documented in this encounter [facility] 09-18-2021 Miscellaneous Notes Patient notified [...] or bleeding issues. documented in this encounter [facility] 2021 Miscellaneous Notes TC to [...] or missed doses. documented in this encounter [facility] 01-29-2021 History of Present illness [...] 2021 1:01 PM documented in this encounter [facility] 01-04-2018 History of Past i [...] of this encounter (statuses as of 09/16/2021) [facility] Narrative* [...] of this encounter (statuses as of 09/18/2021) [facility] Narrative* [...] of this encounter (statuses as of 2021) [facility] N[facility]ative* [...] of this encounter (statuses as of 09/25/2021) [facility] Narrative* [...] of this encounter (statuses as of 09/26/2021) [facility] N[facility]ative* [...] of this encounter (statuses as of 09/27/2021) [facility] N[facility]* [...] of this encounter (statuses as of 10/01/2021) [facility] N[facility]* [...] of this encounter (statuses as of 10/01/2021) [facility] N[facility]* [...] of this encounter (statuses as of 10/09/2021) [facility] N[facility]* [...] of this encounter (statuses as of 10/15/2021) [facility] N[facility]* [...] of this encounter (statuses as of 10/15/2021) [facility] Narrative* [...] of this encounter (statuses as of 10/15/2021) [facility] N[facility]* [...] of this encounter (statuses as of 10/30/2021) [facility] N[facility]* [...] of this encounter (statuses as of 11/11/2021) [facility] N[facility]* [...] of this encounter (statuses as of 11/19/2021) [facility] N[facility]* [...] of this encounter (statuses as of 11/30/2021) [facility]* [...] of this encounter (statuses as of 12/23/2021) [facility]* [...] of this encounter (statuses as of 02/10/2022) [facility]* [...] of this encounter (statuses as of 02/11/2022) [facility]* [...] of this encounter (statuses as of 02/12/2022) [facility]* [...] of this encounter (statuses as of 02/27/2022) [facility]* [...] of this encounter (statuses as of 03/03/2022) [facility]* [...] of this encounter (statuses as of 03/06/2022) [facility]* [...] of this encounter (statuses as of 04/25/2022) [facility] N[facility]* [...] of this encounter (statuses as of 06/25/2022) [facility]* [...] of this encounter (statuses as of 05/04/2023) [facility]* [...] of this encounter (statuses as of 05/04/2023) [facility] note* Diagnosis History of pulmonary embolism Personal history of pulmonary embolism documented in this encounter [facility] note* Diagnosis History of pulmonary embolism Personal history of pulmonary embolism documented in this encounter [facility] note* Diagnosis Cerebral palsy, unspecified [...] or radiculitis nos documented in this encounter [facility] noteNo assessment information availableWOhio[facility] Work Phone: Evaluation note* Diagnosis Acquired hypothyroidism Unspecified hypothyroidism documented in this encounter [facility] note* Diagnosis Disorder of bone and cartilage Disorder of bone and cartilage, unspecified documented in this encounter [facility] note* Diagnosis Encounter for screening mammogram for breast cancer documented in this encounter [facility] note* Diagnosis Type 2 diabetes, controlled, with neuropathy (HCC)- Primary Type II or unspecified type diabetes mellitus with neurological manifestations, not stated as uncontrolled Diabetic ulcer of toe 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, with fat layer exposed (HCC) documented in this encounter [facility] note* Diagnosis Diabetic ulcer of toe 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, with fat layer exposed (HCC) 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, not stated as uncontrolled documented in this encounter [facility] note* Diagnosis Diabetic ulcer of other part 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, with fat layer exposed (HCC)- Primary Cellulitis of left lower extremity Cellulitis and abscess of leg, except foot PE (pulmonary thromboembolism) (HCC) Chronic pulmonary embolism Cellulitis Cellulitis and abscess of unspecified site documented in this encounter [facility] Phone: Evaluation note* Diagnosis 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* Diagnosis Frequent falls- Primary Right hip pain Pain in joint, pelvic region and thigh Contusion of right knee, initial encounter Osteoarthritis, unspecified osteoarthritis type, unspecified site [facility] Diagnosis Diabetic ulcer of left foot associated with diabetes mellitus due to underlying condition, unspecified part of foot, unspecified ulcer stage (HCC)- Primary Left leg cellulitis documented in this encounter [facility] note* Diagnosis Pressure ulcer of right foot, stage 3 (HCC)- Primary documented in this encounter [facility] note* Diagnosis Chronic right shoulder pain Pain in joint, shoulder region documented in this encounter [facility] note* Diagnosis Acute cough- Primary documented in this encounter [facility] note* Diagnosis Fall at home, initial [...] manifestations, not stated as uncontrolled Atherosclerosis of [place] coronary artery of [place] heart without angina pectoris Other pulmonary embolism without acute cor pulmonale, unspecified chronicity (HCC) Debility Debility, unspecified documented in this encounter [facility] note* Diagnosis Fall at home, [...] Neuropathy Mononeuritis of unspecified site Atherosclerosis of [place] coronary artery of [place] heart without angina pectoris Other pulmonary embolism without acute cor pulmonale, unspecified chronicity (HCC) Debility Debility, unspecified documented in this encounter [facility] note* Diagnosis Fall at home, [...] manifestations, not stated as uncontrolled Atherosclerosis of [place] coronary artery of [place] heart without angina pectoris Other pulmonary embolism without acute cor pulmonale, unspecified chronicity (HCC) Debility Debility, unspecified documented in this encounter [facility] note* Diagnosis Primary osteoarthritis of left knee- Primary Primary localized osteoarthrosis, lower leg documented in this encounter [facility] note* Diagnosis Sprain of left ankle, unspecified ligament, initial encounter- Primary Ankle instability, left Chronic pain of left ankle documented in this encounter [facility] note* Diagnosis Sprain of left ankle, unspecified ligament, initial encounter Ankle instability, left documented in this encounter [facility] for referral (narrative)* Diagnostic Procedure Only (Routine) - Pending Review Specialty Diagnoses / Procedures Referred By Enrique cueva Referred To Contact BR IMAGING Diagnoses Encounter for screening mammogram for breast cancer Procedures FUAD SCREENING SCREENING MAMMOGRAPHY BI 2-VIEW BREAST INC CAD Baudilio Sultana MD [address] [place] [address] [facility] [address] [place] [address] Referral ID Status Reason Start Date Expiration Date Visits Requested Visits Authorized [id number] Pending Review Auto-Generat ed Referral 12/18/2021 01/17/2023 1 1 [facility] for referral (narrative)* Diagnostic Procedure Only (Routine) - Closed Specialty Diagnoses / Procedures Referred By Enrique cueva Referred To Contact XR IMAGING Diagnoses Diabetic ulcer of toe 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, with fat layer exposed (HCC) Procedures XR FOOT GENERAL 3V AP/LAT/OBL LEFT RADEX FOOT COMPLETE MINIMUM 3 VIEWS Steven Pelaez [address] [place] [address] Xr Imaging Referral ID Status Reason Start Date Expiration Date V isits Requested Visits Authorized [id number] Closed Auto-Generate d Referral 02/10/2022 03/12/2023 1 1 [facility] for referral (narrative)* Diagnostic Procedure Only (Routine) - Closed Specialty Diagnoses / Procedures Referred By Contac t Referred To Contact XR IMAGING Diagnoses Diabetic ulcer of toe 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, with fat layer exposed (HCC) Procedures XR FOOT GENERAL 3V AP/LAT/OBL LEFT RADEX FOOT COMPLETE MINIMUM 3 VIEWS Steven Pelaez [address] [place] [address] Xr Imaging Referral ID Status Reason Start Date Expiration Date V isits Requested Visits Authorized [id number] Closed Auto-Generate d Referral 02/10/2022 03/12/2023 1 1 [facility] for referral (narrative)No reason for referral information [facility] Phone: Reason for visit Narrative* Diagnostic Procedure Only (Routine) - Closed Specialty Diagnoses / Procedures [facility] / RADIO BONE DENSITY [facility] Diagnoses Disorder of bone and cartilage [M89.9, M94.9] Procedures BONE DENSITY ADULT 225 Baudilio Sultana MD [address] [place] [address] Radio Bone Density [facility] [address] [place] [address] Referral ID Status Reason Start Date Expiration Date Visits Re quested Visits Authorized [id number] Closed 10/14/2021 06/21/2022 1 1 [facility] for visit Narrative* Diagnostic Procedure Only (Routine) - Closed Specialty Diagnoses / Procedures [facility]erred To Contact XR IMAGING Diagnoses Diabetic ulcer of toe 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, with fat layer exposed (HCC) Procedures XR FOOT GENERAL 3V AP/LAT/OBL LEFT RADEX FOOT COMPLETE MINIMUM 3 VIEWS Steven Pelaez [address] [place] [address] Xr Imaging Referral ID Status Reason Start Date Expiration Date V isits Requested Visits Authorized [id number] Closed Auto-Generate d Referral 02/10/2022 03/12/2023 1 1 [facility] for visit Narrative* Diagnostic Procedure Only (Routine) - Closed Specialty Diagnoses / Procedures Referred By Contac t Referred To Contact XR IMAGING Diagnoses Sprain of left ankle, unspecified ligament, initial encounter Ankle instability, left Procedures XR TIBIA FIBULA 2V AP/LAT LEFT RADIOLOGIC EXAMINATION TIBIA & FIBULA 2 VIEWS Steven Pelaez [address] [place] [address] Phone: tel: fax: [place] [phone] Referral ID Status Reason Start Date Expiration Date V isits Requested Visits Authorized [id number] Closed Auto-Generate d Referral 10/27/2024 11/26/2025 1 1 [facility] Summary Purpose Family History No [...] FoundDocuments on File Type Date Recorded 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 Advance Directive(s) 11/24/2016 2:36 PM Advance Directive(s) 10/24/2016 10:01 AM Advance Directive(s) 12/26/2013 2:29 PM Documents on File Type Date Recorded 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 Advance Directive(s) 11/24/2016 2:36 PM Advance Directive(s) 10/24/2016 10:01 AM Advance Directive(s) 12/26/2013 2:29 PM Advance Directive Response Recorded Date/ Time Advance Directives Yes January 04 7:42pm Living Will Yes April 22 10:07pm Power of Reporting Analyst Yes April 22, 2021 10:07pm Documents on File Type Date Recorded 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 Advance Directive(s) 12/26/2013 2:29 PM Documents on File Type Date Recorded 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 Advance Directive(s) 12/26/2013 2:29 PM Latest Code Status on File Code Status Date Activated Date Inactivated Comments Limited 03/08/2022 4:21 PM Intubation/Re-intubation at the time of arrest: No Defibrillation/Cardioversion: No Chest Compressions: No Resuscitative Medications: Yes Healthcare Agents on File Name Relationship Healthcare Agent Relationshi p Communication Lisha Holly Child Primary Decision Maker Documents on File Type Date Recorded 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 DNR (Do Not Resuscitate) 12/18/2023 10:52 AM Advance Directive Response Recorded Date/ Time Advance Directives Yes January 04 7:42pm Reason for Referral Specialty Diagnoses / Procedures Referred By Contac t Referred To Contact [facility] Diagnoses Cerebral palsy, unspecified type (HCC) Procedures CONSULT TO BUILDER'S LABOURER OCCUPATIONAL THERAPY EVAL HIGH COMPLEX 60 MINS Baudilio Sultana MD [address] [place] [address] [facility] [address] [address] Referral ID Status Reason Start Date Expiration Date Visits Requested Visits Authorized [id number] Pending Review Auto-Generat ed Referral 09/26/2021 09/26/2022 1 1 Specialty Diagnoses / Procedures Referred By Contac t Referred To Contact [facility] Diagnoses Cerebral palsy, unspecified type (HCC) Procedures CONSULT TO PHYSICAL THERAPY PHYSICAL THERAPY EVALUATION HIGH COMPLEX 45 MINS Baudilio Sultana MD [address] [place] [address] [facility] [address] [address] Referral ID Status Reason Start Date Expiration Date Visits Requested Visits Authorized [id number] Pending Review Auto-Generat ed Referral 09/26/2021 09/26/2022 1 1 Specialty Diagnoses / Procedures Referred By Contac t Referred To [facility] Diagnoses Carotid artery disease, unspecified laterality, unspecified type (HCC) Procedures US CAROTID ARTERIES DUSTIN VAS LAB DUPLEX SCAN EXTRACRANIAL ART COMPL BI STUDY Baudilio Sultana MD [address] [place] [address] [facility] [place] [facility] [address] [address] Referral ID Status Reason Start Date Expiration Date Visits Requested Visits Authorized [id number] Additional Clinical Info Needed Auto-Generat ed Referral 09/26/2021 09/26/2022 1 1 Specialty Diagnoses / Procedures Referred By Contac t Referred To Contact Wound Care / IP Unit Diagnoses Diabetic ulcer of other part 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, with fat layer exposed (HCC) Ritika Fonseca, EDITORIAL ASSISTANT - CORRUGATED FASTENER DRIVER [address] [place] [address] [address] [facility] [address] [place] [address] Referral ID Status Reason Start Date Expiration Date V isits Requested Visits Authorized [id number] Open Specialty Services Required 03/11/2022 03/11/2023 1 1 Scheduling Instructions [facility] Wound Care/Hyperbaric [facility] [address] [place] [address] Comments Wound Center/Hyperbaric Medicine is located on the ground floor of [facility] (just behind registration). Bring photo ID [...] DRAW LAB WORK Chief Complaint Admit Date GROUP HOME LAB WORK December 05, 2024 5: 00am GROUP HOME LAB WORK December 19, 2024 5: 00am GROUP HOME LAB WORK January 02, 2025 4: 00am GROUP HOME LAB WORK January 03, 2025 4: 45am GROUP HOME LAB WORK January 09, 2025 4: 00am LAB WORK January 17, 2025 4:00 am GROUP HOME LAB WORK January 24, 2025 5 :00am GROUP HOME LAB WORK January 31, 2025 7:25am LABWORK February 01, 2025 5: 00am GROUP HOME LAB WORK February 07, 2025 5:00am GROUP HOME LAB WORK February 21 4:00am GROUP HOME LAB WORK March 02 5:00am LABWORK March 08, 2025 7:10am Additional Source Comments INFORMATION SOURCE (unrecogn ized section and content) DATE CREATED AUTHOR 12/11/2017 [facility] DATE CREATED AUTHOR AUTHOR'S ORGANIZ ATION 12/11/2017 [facility] DATE CREATED AUTHOR AUTHOR'S ORGANIZ ATION 03/31/2022 [facility] DATE CREATED AUTHOR AUTHOR'S ORGANIZ ATION 09/08/2022 [facility] DATE CREATED AUTHOR AUTHOR'S ORGANIZ ATION 07/11/2024 [facility] DATE CREATED AUTHOR AUTHOR'S ORGANIZ ATION 10/01/2024 [facility] DATE CREATED AUTHOR AUTHOR'S ORGANIZ ATION 11/09/2024 [facility] DATE CREATED AUTHOR AUTHOR'S ORGANIZ ATION 05/02/2025 [facility] DATE CREATED AUTHOR AUTHOR'S ORGANIZ ATION 05/04/2025 [facility] Source Comments (unrecognize d section and content) In the event this informatio n is protected by the Federal Confidentiality of Alcohol and Drug Abuse Patient Records regulations: The Federal rules restrict any use of the information to criminally investigate or prosecute any alcohol or drug abuse patient.[facility] the event this information is protected by the Federal Confidentiality of Alcohol and Drug Abuse Patient Records regulations: The Federal rules restrict any use of the information to criminally investigate or prosecute any alcohol or drug abuse patient.[facility] Center[facility] the event this information is protected by the Federal Confidentiality of Alcohol and Drug Abuse Patient Records regulations: The Federal rules restrict any use of the information to criminally investigate or prosecute any alcohol or drug abuse patient.[facility] Center[facility] the event this information is protected by the Federal Confidentiality of Alcohol and Drug Abuse Patient Records regulations: The Federal rules restrict any use of the information to criminally investigate or prosecute any alcohol or drug abuse patient.[facility] CenterIn the event this information is protected by the Federal Confidentiality of Alcohol and Drug Abuse Patient Records regulations: The Federal rules restrict any use of the information to criminally investigate or prosecute any alcohol or drug abuse patient.[facility] Center[facility] the event this information is protected by the Federal Confidentiality of Alcohol and Drug Abuse Patient Records regulations: The Federal rules restrict any use of the information to criminally investigate or prosecute any alcohol or drug abuse patient.[facility] Center[facility] the event this information is protected by the Federal Confidentiality of Alcohol and Drug Abuse Patient Records regulations: The Federal rules restrict any use of the information to criminally investigate or prosecute any alcohol or drug abuse patient.[facility] CenterIn the event this information is protected by the Federal Confidentiality of Alcohol and Drug Abuse Patient Records regulations: The Federal rules restrict any use of the information to criminally investigate or prosecute any alcohol or drug abuse patient.[facility] CenterIn the event this information is protected by the Federal Confidentiality of Alcohol and Drug Abuse Patient Records regulations: The Federal rules restrict any use of the information to criminally investigate or prosecute any alcohol or drug abuse patient.[facility] Center[facility] the event this information is protected by the Federal Confidentiality of Alcohol and Drug Abuse Patient Records regulations: The Federal rules restrict any use of the information to criminally investigate or prosecute any alcohol or drug abuse patient.[facility] CenterIn the event this information is protected by the Federal Confidentiality of Alcohol and Drug Abuse Patient Records regulations: The Federal rules restrict any use of the information to criminally investigate or prosecute any alcohol or drug abuse patient.[facility] CenterIn the event this information is protected by the Federal Confidentiality of Alcohol and Drug Abuse Patient Records regulations: The Federal rules restrict any use of the information to criminally investigate or prosecute any alcohol or drug abuse patient.[facility] CenterIn the event this information is protected by the Federal Confidentiality of Alcohol and Drug Abuse Patient Records regulations: The Federal rules restrict any use of the information to criminally investigate or prosecute any alcohol or drug abuse patient.[facility] CenterIn the event this information is protected by the Federal Confidentiality of Alcohol and Drug Abuse Patient Records regulations: The Federal rules restrict any use of the information to criminally investigate or prosecute any alcohol or drug abuse patient.[facility] CenterIn the event this information is protected by the Federal Confidentiality of Alcohol and Drug Abuse Patient Records regulations: The Federal rules restrict any use of the information to criminally investigate or prosecute any alcohol or drug abuse patient.[facility] CenterIn the event this information is protected by the Federal Confidentiality of Alcohol and Drug Abuse Patient Records regulations: The Federal rules restrict any use of the information to criminally investigate or prosecute any alcohol or drug abuse patient.[facility] CenterIn the event this information is protected by the Federal Confidentiality of Alcohol and Drug Abuse Patient Records regulations: The Federal rules restrict any use of the information to criminally investigate or prosecute any alcohol or drug abuse patient.[facility] CenterIn the event this information is protected by the Federal Confidentiality of Alcohol and Drug Abuse Patient Records regulations: The Federal rules restrict any use of the information to criminally investigate or prosecute any alcohol or drug abuse patient.[facility] CenterIn the event this information is protected by the Federal Confidentiality of Alcohol and Drug Abuse Patient Records regulations: The Federal rules restrict any use of the information to criminally investigate or prosecute any alcohol or drug abuse patient.[facility] CenterIn the event this information is protected by the Federal Confidentiality of Alcohol and Drug Abuse Patient Records regulations: The Federal rules restrict any use of the information to criminally investigate or prosecute any alcohol or drug abuse patient.[facility] CenterIn the event this information is protected by the Federal Confidentiality of Alcohol and Drug Abuse Patient Records regulations: The Federal rules restrict any use of the information to criminally investigate or prosecute any alcohol or drug abuse patient.[facility] CenterIn the event this information is protected by the Federal Confidentiality of Alcohol and Drug Abuse Patient Records regulations: The Federal rules restrict any use of the information to criminally investigate or prosecute any alcohol or drug abuse patient.[facility] CenterIn the event this information is protected by the Federal Confidentiality of Alcohol and Drug Abuse Patient Records regulations: The Federal rules restrict any use of the information to criminally investigate or prosecute any alcohol or drug abuse patient.[facility] CenterIn the event this information is protected by the Federal Confidentiality of Alcohol and Drug Abuse Patient Records regulations: The Federal rules restrict any use of the information to criminally investigate or prosecute any alcohol or drug abuse patient.[facility] CenterIn the event this information is protected by the Federal Confidentiality of Alcohol and Drug Abuse Patient Records regulations: The Federal rules restrict any use of the information to criminally investigate or prosecute any alcohol or drug abuse patient.[facility] CenterIn the event this information is protected by the Federal Confidentiality of Alcohol and Drug Abuse Patient Records regulations: The Federal rules restrict any use of the information to criminally investigate or prosecute any alcohol or drug abuse patient.[facility] CenterIn the event this information is protected by the Federal Confidentiality of Alcohol and Drug Abuse Patient Records regulations: The Federal rules restrict any use of the information to criminally investigate or prosecute any alcohol or drug abuse patient.[facility] CenterIn the event this information is protected by the Federal Confidentiality of Alcohol and Drug Abuse Patient Records regulations: The Federal rules restrict any use of the information to criminally investigate or prosecute any alcohol or drug abuse patient.[facility] CenterIn the event this information is protected by the Federal Confidentiality of Alcohol and Drug Abuse Patient Records regulations: The Federal rules restrict any use of the information to criminally investigate or prosecute any alcohol or drug abuse patient.[facility] CenterIn the event this information is protected by the Federal Confidentiality of Alcohol and Drug Abuse Patient Records regulations: The Federal rules restrict any use of the information to criminally investigate or prosecute any alcohol or drug abuse patient.[facility] CenterIn the event this information is protected by the Federal Confidentiality of Alcohol and Drug Abuse Patient Records regulations: The Federal rules restrict any use of the information to criminally investigate or prosecute any alcohol or drug abuse patient.[facility] CenterIn the event this information is protected by the Federal Confidentiality of Alcohol and Drug Abuse Patient Records regulations: The Federal rules restrict any use of the information to criminally investigate or prosecute any alcohol or drug abuse patient.[facility] CenterIn the event this information is protected by the Federal Confidentiality of Alcohol and Drug Abuse Patient Records regulations: The Federal rules restrict any use of the information to criminally investigate or prosecute any alcohol or drug abuse patient.[facility] CenterIn the event this information is protected by the Federal Confidentiality of Alcohol and Drug Abuse Patient Records regulations: The Federal rules restrict any use of the information to criminally investigate or prosecute any alcohol or drug abuse patient.[facility] CenterIn the event this information is protected by the Federal Confidentiality of Alcohol and Drug Abuse Patient Records regulations: The Federal rules restrict any use of the information to criminally investigate or prosecute any alcohol or drug abuse patient.[facility] CenterIn the event this information is protected by the Federal Confidentiality of Alcohol and Drug Abuse Patient Records regulations: The Federal rules restrict any use of the information to criminally investigate or prosecute any alcohol or drug abuse patient.[facility] CenterIn the event this information is protected by the Federal Confidentiality of Alcohol and Drug Abuse Patient Records regulations: The Federal rules restrict any use of the information to criminally investigate or prosecute any alcohol or drug abuse patient.[facility] Care Teams (unrecognized sec tion and content) Mortgage Loan Originator Relationship Specialty Start Date End Date Baudilio Sultana MD [address] [place] [address] PCP - General Family Practice 04/01/18 [facility] Rheumatology 10/12/17 Mortgage Loan Originator Relationship Specialty Start Date End Date Baudilio Sultana MD [address] [place] [address] PCP - General Family Practice 04/01/18 Jackson Lee Consulting Rheumatology 10/12/17 Mortgage Loan Originator Relationship Specialty Start Date End Date Baudilio Sultana MD [address] [place] [address] PCP - General Family Practice 04/01/18 Jackson Lee Consulting Rheumatology 10/12/17 Mortgage Loan Originator Relationship Specialty Start Date End Date Baudilio Sultana MD [address] [place] [address] PCP - General Family Practice 04/01/18 Jackson Lee Consulting Rheumatology 10/12/17 Mortgage Loan Originator Relationship Specialty Start Date End Date Baudilio Sultana MD [address] [place] [address] PCP - General Family Practice 04/01/18 Jackson Lee Consulting Rheumatology 10/12/17 Mortgage Loan Originator Relationship Specialty Start Date End Date Baudilio Sultana MD [address] [place] [address] PCP - General Family Practice 04/01/18 Jackson Lee Consulting Rheumatology 10/12/17 Mortgage Loan Originator Relationship Specialty Start Date End Date Baudilio Sultana MD [address] [place] [address] PCP - General Family Practice 04/01/18 Jackson Lee Consulting Rheumatology 10/12/17 Mortgage Loan Originator Relationship Specialty Start Date End Date Baudilio Sultana MD [address] [place] [address] PCP - General Family Practice 04/01/18 Jackson Lee Consulting Rheumatology 10/12/17 Mortgage Loan Originator Relationship Specialty Start Date End Date Baudilio Sultana MD [address] [place] [address] PCP - General Family Practice 04/01/18 Jackson Lee Consulting Rheumatology 10/12/17 Mortgage Loan Originator Relationship Specialty Start Date End Date Baudilio Sultana MD [address] [place] [address] PCP - General Family Practice 04/01/18 Jackson Lee Consulting Rheumatology 10/12/17 Mortgage Loan Originator Relationship Specialty Start Date End Date Baudilio Sultana MD [address] [place] [address] PCP - General Family Practice 04/01/18 Jackson Lee Consulting Rheumatology 10/12/17 Mortgage Loan Originator Relationship Specialty Start Date End Date Baudilio Sultana MD [address] [place] [address] PCP - General Family Practice 04/01/18 Jackson Lee Consulting Rheumatology 10/12/17 Mortgage Loan Originator Relationship Specialty Start Date End Date Baudilio Sultana MD [address] [place] [address] PCP - General Family Practice 04/01/18 Jackson Lee Consulting Rheumatology 10/12/17 Mortgage Loan Originator Relationship Specialty Start Date End Date Baudilio Sultana MD [address] [place] [address] PCP - General Family Practice 04/01/18 Jackson Lee Consulting Rheumatology 10/12/17 Mortgage Loan Originator Relationship Specialty Start Date End Date Baudilio Sultana MD [address] [place] [address] PCP - General Family Practice 04/01/18 Jackson Lee Consulting Rheumatology 10/12/17 Mortgage Loan Originator Relationship Specialty Start Date End Date Baudilio Sultana MD [address] [place] [address] PCP - General Family Practice 04/01/18 Jackson Lee Consulting Rheumatology 10/12/17 Mortgage Loan Originator Relationship Specialty Start Date End Date Baudilio Sultana MD [address] [place] [address] PCP - General Family Medicine 04/01/18 04/24/22 Jackson Lee Consulting Rheumatology 10/12/17 Mortgage Loan Originator Relationship Specialty Start Date End Date Baudilio Sultana MD [address] [place], [place] [id number] PCP - General Family Medicine 04/01/18 04/24/22 Jackson Lee Consulting Rheumatology 10/12/17 Mortgage Loan Originator Relationship Specialty Start Date End Date Jackson Lee MD Consulting Rheumatology 10/12/17 Mortgage Loan Originator Relationship Specialty Start Date End Date Jackson Lee MD Consulting Rheumatology 10/12/17 Mortgage Loan Originator Relationship Specialty Start Date End Date Gio Harvey [address], [place] [address] PCP - General Certified Nurse Practitioner 01/13/24 Mortgage Loan Originator Relationship Specialty Start Date End Date Gio Harvey [address], [place] [address] PCP - General Certified Nurse Practitioner 01/13/24 Mortgage Loan Originator Relationship Specialty Start Date End Date Baudilio Sultana MD [address] [facility] [place] [address] PCP - General Family Medicine 04/01/18 04/24/22 Jackson Lee MD Consulting Rheumatology 10/12/17 Mortgage Loan Originator Relationship Specialty Start Date End Date Gio Harvey [address], [place] [address] PCP - General Certified Nurse Practitioner 01/13/24 07/09/24 Mortgage Loan Originator Relationship Specialty Start Date End Date Gio Harvey [address], [place] [address] PCP - General Certified Nurse Practitioner 01/13/24 07/09/24 Mortgage Loan Originator Relationship Specialty Start Date End Date Raf Casey MD [address] [phone] PCP - General Internal Medicine 08/27/23 Jackson Lee MD Consulting Rheumatology 10/12/17 Mortgage Loan Originator Relationship Specialty Start Date End Date Raf Casey MD [address] [facility] [address] [place] [phone] PCP - General Internal Medicine 08/27/23 Jackson Lee MD Consulting Rheumatology 10/12/17 Mortgage Loan Originator Relationship Specialty Start Date End Date Raf Casey MD [address] [place] [phone] PCP - General Internal Medicine 08/27/23 Jackson Lee MD Consulting Rheumatology 10/12/17 Mortgage Loan Originator Relationship Specialty Start Date End Date Raf Casey MD [address] [place] [phone] PCP - General Internal Medicine 08/27/23 Jackson Lee MD Consulting Rheumatology 10/12/17 Mortgage Loan Originator Relationship Specialty Start Date End Date Raf Casey MD [address] [place] [phone] PCP - General Internal Medicine 08/27/23 Jackson Lee MD Consulting Rheumatology 10/12/17 Mortgage Loan Originator Relationship Specialty Start Date End Date Raf Casey MD [address] [place] [phone] PCP - General Internal Medicine 08/27/23 Jackson Lee MD Consulting Rheumatology 10/12/17 Mortgage Loan Originator Relationship Specialty Start Date End Date Raf Casey MD [address] [place] [address] PCP - General Internal Medicine 08/27/23 Jackson [...] 4C EST WELL Self Baudilio Sultana MD [address] [place] [address] Referral ID Status Reason Start Date Expiration Date V isits Requested Visits Authorized [id number] Closed Financial Clearance Required - OON Payor [...] Orders Reason Comments Fall [facility] lies in [facility] and [facility], +thinners, A&Ox4 Reason Comments [...] Over 349 4 Units and notify physician 210 (Not Given - Provider: Lucy Nicholas LPN [...] 0611 (Given - Provider: Alexandra Yao RN) 0519 (Given - Provider: Lucy Nicholas LPN) 528 [...] LPN) 2149 (Given - Provider: Alexandra Yao, NAWAF) miconazole (MICOTIN) 2 % powder Topical, 2 TIMES DAILY, First dose on 03/08/22 at 2100, Apply to skin folds. Substituted for Nystatin (MICOSTATIN) powder. 747 (Given - Provider: Mable Trejo RN - Comment: as ordered)2107 (Given - Provider: Lucy Nicholas LPN) 749 (Given - Provider: Viktoriya Danielson, NAWAF)2039 (Not Given - Provider: Lucy Nicholas LPN - Reason: Patient/family refused) 847 (Given - Provider: Viktoriya Danielson, NAWAF)2153 (Given - Provider: Alexandra Yao, NAWAF) ramipril (ALTACE) capsule 5 mg 5 mg, Oral, DAILY, First dose on 03/08/22 at 1800, Until Discontinued 49 (Given - Provider: Mable Trejo RN) 07 [...] Danielson RN - Reason: Loss of IV access)2100 (Due) sodium chloride flush 0.9 % injection [...] Provider: Mable Trejo RN)2103 (Given - Provider: Luyc Nicholas LPN) 0752 (Given - Provider: Viktoriya Danielson RN)2032 (Not Given - Provider: Lucy Nicholas LPN - Reason: Loss of IV access) 0849 (Not Given - Provider: Viktoriya Danielson RN - Reason: Loss of IV access)2100 (Due) traZODone (DESYREL) tablet 50 mg 50 [...] handling/disposal 1900 (Given - Provider: Viktoriya Danielson, RN) PRN Medication Order 03/10/2022 03/11/2022 03/12/2022 [...] mg from all sources in 24 hours. 08 (Given - Provid er: Lucy Jones RN) Scheduled Medication Order 07/18/2023 07/19/2023 07/20/2023 HYDROcodone-acetaminophen ([place]) 5-325 MG per tablet 1 tablet (COMPLETED) 1 tablet, Oral, Once, On 07/19/23 at 2030, For 1 dose, Maximum dose of acetaminophen is 4000 mg from all sources in 24 hours. 2030 (Given - Provider: Pia Caraballo RN) HYDROcodone-acetaminophen ([place]) 5-325 MG per tablet 1 tablet (COMPLETED) 1 tablet, Oral, Once, On Thu07/20/23 at 0105, For 1 dose, Maximum dose of acetaminophen is 4000 mg from all sources in 24 hours. 0154 (Given - Provid er: Gifty Cornell RN) HYDROcodone-acetaminophen ([place]) 5-325 MG per tablet 1 tablet (COMPLETED) [...] that apply): Skin and Soft Tissue Infection 1846 (Given - Provider: Osvaldo Murdock RN) Scheduled [...] BE BASED ON THE PRIMARY CLINICAL RECORDS. [facility]. provides no warranty or guarantee of the accuracy or completeness of information in this document.
[2025-05-31 08:07] LABS: INR Fingerstick 2.3
== END ==
LOC: OLS.WCC 05:00
PROVIDERS: PCP Family Medicine; Visit Provider Family Medicine
DX: I25.10 Atherosclerotic heart disease of native coronary artery without angina pectoris (principal)
CPT/HCPCS: 36416; 85610

== ENCOUNTER → 2025-06-02 05:00 | Outpatient (REF) | payer MEDICARE, MEDICAID, SELFPAY ==
--- OUTSIDE RECORDS SUMMARY | 2025-06-02 04:21 | XMS RPT_ITS | CCD ---
Author Organization [facility] Fusion Dynamic ion [facility] Care Team Providers Care Statistical Technician Name Role Phone DAVID ERWIN E Unavailable Unavailable DAVID ERWIN E Unavailable Unavailable DAVID ERWIN Unavailable Unavailable DAVID ERWIN Unavailable Unavailable Pahn Coleman Unavailable Unavailable DAVID ERWIN Unavailable Unavailable [...] Care Provider Gio Harvey Primary Care Provider [phone] GIO HARVEY Primary Care Unavailable SIAAC CHICAS Attending Unavailable GLORIA BANGURA Attending Unavailable [...] Unavailable LI, RAF L Primary Care Unavailable [place], [facility] Primary Care Unavailable Marroquin TRENA Min K Attending Unavailable Marroquin TRENA, Min K Attending Unavailable [facility] Primary Care Unavailable Marroquin TRENA, Min K Referring Unavailable [place], [facility] Primary Care Unavailable Marroquin TRENA, Min K Referring Unavailable Marroquin TRENA, Min K Attending Unavailable [address], [facility] Primary Care Unavailable Marroquin TRENA, Min K Attending Unavailable [place], [facility] Primary Care Unavailable Marroquin TRENA, Min K Attending Unavailable [place], [facility] Primary Care Unavailable Marroquin OLS, Min K Attending Unavailable Rd, [facility] Primary Care Unavailable Marroquin OLS, Min K Attending Unavailable Rd, [place] Primary Care Unavailable Marroquin OLS, Min K Attending Unavailable Rd, [place] Primary Care Unavailable Marroquin OLS, Min K Attending Unavailable Rd, [place] Primary Care Unavailable Marroquin OLS, Min K Attending Unavailable Rd, [place] Primary Care Unavailable Marroquin OLS, Min K Attending Unavailable Marroquin OLS, Min K Attending Unavailable [place], [place] Primary Care Unavailable Marroquin OLS, Min K Referring Unavailable [place], [facility] Primary Care Unavailable Marroquin OLS, Min K Attending Unavailable Marroquin OLS, Min K Attending Unavailable [place], [place] Primary Care Unavailable Marroquin OLS, Min [...] cephalexin; Translations: [CEPHALEXIN] Drug Allergy 5 Itching [facility] Repository (20 sources) ciprofloxacin; Translations: [CIPROFLOXACIN] Drug Allergy 1 Rash [facility] Repository (20 sources) erythromycin; Translations: [ERYTHROMYCIN] Drug Allergy 5 Itching [facility] Repository (20 sources) naproxen; Translations: [NAPROXEN] Drug Allergy 5 Intolerance [facility] Repository (20 sources) PARoxetine; Translations: [PAROXETINE HCL] Drug Allergy 5 Mental Status Change [facility] Repository (20 sources) Penicillins; Translations: [PENICILLINS] Propensity to adverse reactions to drug (disorder) 1 Hives, Unknown, Other [facility] Repository (20 sources) PROMETHAZINE-PHE NYLEPHRINE; Translations: [PROMETHAZINE-PH ENYLEPHRINE] Propensity to adverse reactions to drug (disorder) 5 Mental Status Change, Other [facility] Repository (4 sources) OTHER; Translations: [OTHER] Propensity to adverse reactions (disorder) 2 AOF [facility] Repository (20 sources) HMG-CoA reductase inhibitor; Translations: [KWRPMGR-ESY-PJD REDUCTASE INHIBITORS] Drug Intolerance 9 Myalgia [facility] Work Phone: (20 sources) paper tape [Other] Propensity to adverse reactions 2 Intolerance [facility] Work Phone: (5 sources) Cephalexin; Translations: [cephalexin monohydrate] Drug Allergy 1 Unknown [facility] (4 sources) Erythromycin Drug Allergy 1 Unknown [facility] (5 sources) Promethazine; Translations: [promethazine HCl] Drug Allergy 1 Unknown [facility] (5 sources) Ftrplvj-Ezn-Hcs Reductase Inhibitor; Translations: [Rljpmeb-Wqj-Mnb Reductase Inhibitor] Propensity to adverse reactions 1 Myalgias [facility] (1 source) PAPER TAPE Propensity to adverse reactions 1 Rash [facility] Work Phone: (20 sources) HMG-CoA reductase inhibitor Drug Intolerance 9 Myalgia [facility] Work Phone: (6 sources) Adhesive Tape Propensity to adverse reactions to drug 2 Unknown [facility] Comment on above: PAPER TAPE (5 sources) Cheese; Translations: [CHEESE] Propensity to adverse reactions to drug 2 Diarrhea, Nausea And Vomiting, GI Upset [facility] (1 source) Hmg-Coa Reductase Inhibitors (Statins) Propensity to adverse reactions to drug 2 [facility] Work Phone: (20 sources) Promethazine; Translations: [PROMETHAZINE] Drug Allergy 9 Unknown, Intolerance [facility] Work Phone: (20 sources) PARoxetine; Translations: [PAROXETINE] Drug Allergy 9 Unknown, Intolerance [facility] (20 sources) 5-Alpha Reductase Inhibitors Propensity to adverse reactions 3 [facility] (13 sources) Adhesive Tape-Silicones; Translations: [ADHESIVE TAPE-SILICONES] Drug Allergy 3 Unknown, Rash [facility] (11 sources) Adhesive Tape Propensity to adverse reactions 4 [facility] (7 sources) Wound Dressing Adhesive Drug Allergy 3 Unknown [facility] (11 sources) Adhesive Tape; Translations: [ADHESIVE TAPE (ROSINS)] Propensity to adverse reactions to substance 1 Rash [facility] Work Phone: (2 sources) Adhesive agent; Translations: [ADHESIVE] Propensity to adverse reactions to drug (disorder) 2 [facility] Other [place] Repository (1 source) Adhesive Tape Drug allergy (disorder) 2 [facility] Repository (1 source) Erythromycin Drug Allergy 2 [facility] Repository Medications Current Medications Medication [...] Phosphate Binder, Calcium Start: 06-12-2019 Calcium Carb-D3-Mag [id number]-Awlt Active 1 EACH PO DAILY June 12, 2019 5:53pm Calcium Carb-D3-Mag Yqh22-Oret 1 EACH tablet (3 sources) Start: 06-12-2019 [...] day. 09/28/2024 Active take 1 capsule by [facility] every eight hours as needed hydrOXYzine pamoate [...] 3 times daily. Active nystatin (Mycost atin) 249291 UNIT/GM powder Apply topically 2 times daily. [...] January 07, 2014 9:25am polyethylene glycol 3350 11244 mg powder for oral solution (2 sources) [...] mouth once daily take 1 capsule by [facility] every twenty-four hours ramipril (Altace) 5 MG [...] Agonist Start: 07-19-2023 End: 07-20-2023 HYDROcodone-acetam inophen ([place]) 5-325 MG per tablet 1 tablet Start: [...] Comment on above: Take 1 capsule by [facility] once daily. 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; Translations: [longterm (current) use of anticoagulants] Onset: 2 Episodic Other aftercare (2 sources) 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..] Coag (PPP) [Relative time] 3.3 {INR} Normal [facility] Comment on above: Order Comment: 103.1 Performed By: #### L 501.9985, L501.9520 #### [facility] [address] [place], [place], [id number] PT Coag (PPP) [Time] 34.4 s High 11.7-14.9 [facility] Comment on above: Order Comment: 103.1 Performed By: #### L [id number], [id number] #### [facility] [address] [facility], [address] CNOVon 05-01-2025 CNOV Office Visit (PSYLWM ) RANDOLPH HUNTER ([id number]) 1950 F Date Time Provider Department 05/01/25 11:00 AM GILMER COTTON PSYLWM During your visit today, we recorded the following information about you: Gilmer Cotton, PhD 05/01/2025 12:14 PM Signed [facility] Progress Note Randolph Hunter 05/01/2025 [id number] PROVIDER: Gilmer Cotton, PhD CPT Code: Time: [...] SAFETY SYRINGE) 1 mL 25 gauge x 5/8 Use as directed once a month. blood sugar diagnostic (ONETOUCH VERIO TEST STRIPS) test strip Test blood sugar(s) 3 times daily. Dx: Other DM Code E11.42 Insulin: Yes ketoconazole (NIZORAL) 2 % cream Apply 1 application to affected area once daily. Syringe with Needle, Safety 3 mL 23 gauge x 1 1 Each as directed. Use one each [...] feet. 41 (more content not included)... Normal [facility] CNOVon 04-26-2025 CNOV Office Visit (REHMMN ) RANDOLPH HUNTER ([id number]) 1950 F Date Time Provider Department 04/26/25 [...] 13-14 years ago. - Describes neuropathy as raging and causing significant pain. - Recently began [...] weeks ago. They're urging her to use [id number], but she's not comfortable. - Engages in exercises independently, including lifting a 5-pound bar daily. -not currently in PT/OT/speech Patient Entered Data PROMIS No data to display Spasticity NRS No data to display Spasm Scale No data to display Global Impression of Change No data to display Safety concerns regarding living situations and safety at home: No resides at [facility] Risk of falls: Yes during transfers Review [...] exhibit s (more content not included)... Normal [facility] Basic Metabolic Profile (BMP )on 04-20-2025 BUN/CRE 17.9 RATIO Normal 04-10 [facility] Comment on above: Order Comment: 103.1 Performed By: #### L 501.9985, L501.9520 #### [facility] [address] [place], [place], [id number] Calcium [Mass/Vol] 8.4 mg/dL Normal 7.6-11.0 [facility] Comment on above: Order Comment: 103.1 Performed By: #### L [id number], [id number] #### [facility] [address] [place], [address] Chloride [Moles/Vol] 110 mmol/L High 98-108 [facility] Comment on above: Order Comment: 103.1 Performed By: #### L [id number], [id number] #### [facility] [address] [place], [address] CO2 [Moles/Vol] 25.5 mmol/L Normal 21.0-32.0 [facility] Comment on above: Order Comment: 103.1 Performed By: #### L 501.9985, [id number] #### [facility] [address] [place], [address] Creatinine [Mass/Vol] 1.35 mg/dL High 0.70-1.20 [facility] Comment on above: Order Comment: 103.1 Performed By: #### L 501.9985, [id number] #### [facility] [address] [place], [address] GAP 6 Normal 5-15 [facility] Comment on above: Order Comment: 103.1 Performed By: #### L [id number], [id number] #### [facility] [address] [place], [address] GFR/1.73 sq M.predicted among non-blacks MDRD (S/P/Bld) [Vol rate/Area] 41 mL/min/{1.73_m2} Low >60 [facility] Comment on above: Order Comment: 103.1 Result Comment: mL/m in/1.73m2 CKD-EPI Creatinine Equation (2020) Performed By: #### L 501.9985, [id number] #### [facility] [address] [place], [address] Glucose [Mass/Vol] 87 mg/dL Normal 70-99 [facility] Comment on above: Order Comment: 103.1 Performed By: #### L 501.9985, [id number] #### [facility] [address] [place], [address] Potassium [Moles/Vol] 5.7 mmol/L High 3.3-5.1 [facility] Comment on above: Order Comment: 103.1 Performed By: #### L 501.9985, [id number] #### [facility] [address] [place], [address] Sodium [Moles/Vol] 141 mmol/L Normal 133-145 [facility] Comment on above: Order Comment: 103.1 Performed By: #### L 501.9985, [id number] #### [facility] [address] [place], [address] Urea nitrogen [Mass/Vol] 24 mg/dL High 4-19 [facility] Comment on above: Order Comment: 103.1 Performed By: #### L 501.9985, [id number] #### [facility] [address] [place], [address] CBC-Complete Blood Cnt No Di ffon 04-20-2025 Erythrocyte distribution width (RBC) [Ratio] 13.0 % Normal 11.6-14.6 [facility] Comment on above: Order Comment: 103.1 Performed By: #### L [id number], [id number] #### [facility] [address] [place], [address] Hematocrit (Bld) [Volume fraction] 28.7 % Low 37-47 [facility] Comment on above: Order Comment: 103.1 Performed By: #### L 501.9985, [id number] #### [facility] [address] [place], [address] Hemoglobin (Bld) [Mass/Vol] 9.4 g/dL Low 12.0-15.0 [facility] Comment on above: Order Comment: 103.1 Performed By: #### L 501.9985, L501.20 #### [facility] [address] [place], [address] MCH (RBC) [Entitic mass] 29.1 pg Normal 27.0-32.0 [facility] Comment on above: Order Comment: 103.1 Performed By: #### L 501.9985, [id number] #### [facility] [address] [place], [address] MCHC (RBC) [Mass/Vol] 32.8 g/dL Normal 32-36 [facility] Comment on above: Order Comment: 103.1 Performed By: #### L [id number], [id number] #### [facility] [address] [place], [address] MCV (RBC) [Entitic vol] 88.9 fL Normal 81-99 [facility] Comment on above: Order Comment: 103.1 Performed By: #### L [id number], [id number] #### [facility] [address] [place], [address] Platelet mean volume (Bld) [Entitic vol] 11.4 fL Normal 6.2-12.0 [facility] Comment on above: Order Comment: 103.1 Performed By: #### L [id number], [id number] #### [facility] [address] [place], [address] Platelets (Bld) [#/Vol] 125 10*3/uL Low 150-450 [facility] Comment on above: Order Comment: 103.1 Performed By: #### L 501.9985, [id number] #### [facility] [address] [place], [address] RBC (Bld) [#/Vol] 3.23 10*6/uL Low 4.2-5.4 [facility] Comment on above: Order Comment: 103.1 Performed By: #### L 501.9985, [id number] #### [facility] [address] [place], [address] RDW SD 42.2 fl Normal 35.1-43.9 [facility] Comment on above: Order Comment: 103.1 Performed By: #### L 501.9985, L501.20 #### [facility] [address] [place], [address] WBC (Bld) [#/Vol] 3.7 10*3/uL Low 4.4-11.0 [facility] Comment on above: Order Comment: 103.1 Performed By: #### L 501.9985, L501.20 #### [facility] [address] [place], [address] Prothrombin Time w/INRon INR Coag (PPP) [Relative time] 2.6 {INR} Normal [facility] Comment on above: Order Comment: 103.1 Performed By: #### L 501.9985, [id number] #### [facility] [address] [place], [address] PT Coag (PPP) [Time] 28.6 s High 11.7-14.9 [facility] Comment on above: Order Comment: 103.1 Performed By: #### L 501.9985, [id number] #### [facility] [address] [place], [address] Protime w/INR Fingerstickon 04-05-2025 INR Coag (PPP) [Relative time] 2.0 {INR} Normal [facility] Comment on above: Result Comment: Crit ical Value > 4.0 Performed By: #### L 9200.0000 #### [facility] [address] [place], [address] Protime Coagsen 22.7 SEC High 11.7-14.9 [facility] Comment on above: Performed By: #### L 9200.0000 #### [facility] [address] [facility] [place], [place], [address] International normalized rat io (INR) calculationOrdered By: Mni Marroquin on 03-21-2025 INR Coag (Bld) [Relative time] 2.1 {INR} [facility] Prothrombin Time w/INRon INR Coag (PPP) [Relative time] 2.1 {INR} Normal [facility] Comment on above: Performed By: #### L 501.9985, [id number] #### [facility] [address] [facility] [place], [place], [address] PT Coag (PPP) [Time] 23.6 s High 11.7-14.9 [facility] Comment on above: Performed By: #### L 501.9985, [id number] #### [facility] [address] [facility] [place], [place], [address] Prothrombin timeOrdered By: Min Marroquin on 03-21-2025 PT Coag (PPP) [Time] 23.6 s High 11.7-14.9 [facility] CNOVon 03-20-2025 CNOV Office Visit (PSYLWM ) RANDOLPH HUNTER ([id number]) 1950 F Date Time Provider Department 03/20/25 3:00 PM GILMER COTTON PSYLWM During your visit today, we recorded the following information about you: Gilmer Cotton, PhD 03/20/2025 4:09 PM Signed [facility] Progress Note Randolph Hunter 03/20/2025 [id number] PROVIDER: Gilmer Cotton, PhD CPT Code: Time: [...] SAFETY SYRINGE) 1 mL 25 gauge x 10/27 Use as directed once a month. blood sugar diagnostic ([employer] VERIO TEST STRIPS) test strip Test blood sugar(s) 3 times daily. Dx: Other DM Code E11.42 Insulin: Yes ketoconazole (NIZORAL) 2 % cream Apply 1 application to affected area once daily. Syringe with Needle, Safety 3 mL 23 gauge x 1 1 Each as directed. Use one each [...] (more content not included)... Normal [facility] International normalized rat io (INR) calculationOrdered By: Min Marroquin on 03-08-2025 INR Coag (Bld) [Relative time] 2.7 {INR} [facility] Prothrombin Time w/INRon INR Coag (PPP) [Relative time] 2.7 {INR} Normal [facility] Comment on above: Order Comment: 103.1 Performed By: #### L 501.9985, L501.9520 #### [facility] [address] [place], [place], [address] PT Coag (PPP) [Time] 29.1 s High 11.7-14.9 [facility] Comment on above: Order Comment: 103.1 Performed By: #### L 501.9985, L501.9520 #### [facility] [address] [place], [place], [address] Prothrombin timeOrdered By: Min Marroquin on 03-08-2025 PT Coag (PPP) [Time] 29.1 s High 11.7-14.9 [facility] Hemoglobin A1con 03-02-2025 HbA1c (Bld) [Mass fraction] 5.4 % Normal <=5.6 [facility] Comment on above: Order Comment: 103.1 Result Comment: Norm al < 5.7 % Prediabetic 5.7 - 6.4 % Diabetic >or= 6.5 % Please note range changes. Performed By: #### L 501.9985, L501.9520 #### [facility] [address] [place], [place], [id number] Hemoglobin A1c percentageOrd ered By: Min Marroquin on 03-02-2025 HbA1c (Bld) [Mass fraction] 5.4 % <5.7 [facility] Comment on above: Normal < 5.7 % Predi abetic 5.7 - 6.4 % Diabetic >or= 6.5 % Please note range changes. TSH DL <= 0.005 mIU/L QnOrde red By: Min Marroquin on 03-02-2025 TSH Qn 2.590 uIU/mL 0.300-4.20 0 [facility] Thyroid Stim Hormone (TSH)on 03-02-2025 TSH 2.590 uIU/mL Normal 0.300-4.20 0 [facility] Comment on above: Order Comment: 103.1 Performed By: #### L 501.9985, L501.9520 #### [facility] [address] [place], [place], [address] International normalized rat io (INR) measurement by fingerstickOrdered By: Min Marroquin on 02-21-2025 INR Coag (BldC) [Relative time] 2.4 [facility] Comment on above: Critical Value > 4.0 Protime w/INR Fingerstickon 02-21-2025 INR Coag (PPP) [Relative time] 2.4 {INR} Normal [facility] Comment on above: Result Comment: Crit ical Value > 4.0 Performed By: #### L 501.9985, L501.9520 #### [facility] [address] [place], [place], [id number] Protime Coagsen 25.4 SEC High 11.7-14.9 [facility] Comment on above: Performed By: #### L 501.9985, L501.9520 #### [facility] [address] [place], [place], [id number] Whole blood prothrombin time Ordered By: Min Marroquin on 02-21-2025 PT Coag (Bld) [Time] 25.4 s High 11.7-14.9 [facility] International normalized rat io (INR) measurement by fingerstickOrdered By: Min Marroquin on 02-07-2025 INR Coag (BldC) [Relative time] 2.5 [facility] Comment on above: Critical Value > 4.0 Protime w/INR Fingerstickon 02-07-2025 INR Coag (PPP) [Relative time] 2.5 {INR} Normal [facility] Comment on above: Result Comment: Crit ical Value > 4.0 Performed By: #### L 9200.0000 #### [facility] [address] [place], [address] Protime Coagsen 27.1 SEC High 11.7-14.9 [facility] Comment on above: Performed By: #### L 9200.0000 #### [facility] [address] [place], [address] Whole blood prothrombin time Ordered By: Min Marroquin on 02-07-2025 PT Coag (Bld) [Time] 27.1 s High 11.7-14.9 [facility] International normalized rat io (INR) measurement by fingerstickOrdered By: Min Marroquin on 02-01-2025 INR Coag (BldC) [Relative time] 3.2 [facility] Comment on above: Critical Value > 4.0 Protime w/INR Fingerstickon 02-01-2025 INR Coag (PPP) [Relative time] 3.2 {INR} Normal [facility] Comment on above: Result Comment: Crit ical Value > 4.0 Performed By: #### L 9200.0000 #### [facility] [address] [place], [address] Protime Coagsen 32.6 SEC High 11.7-14.9 [facility] Comment on above: Performed By: #### L 9200.0000 #### [facility] [address] [place], [address] Whole blood prothrombin time Ordered By: Min Marroquin on 02-01-2025 PT Coag (Bld) [Time] 32.6 s High 11.7-14.9 [facility] International normalized rat io (INR) calculationOrdered By: Min Marroquin on 01-31-2025 INR Coag (Bld) [Relative time] 4.0 {INR} Critically high [facility] Comment on above: CRITICAL VALUE ALBERTO CHAVARRIAER GRAIN LOADER ([facility])01/31/25 0949 Steven Fagan.RESULTS READ BACK BY SAME. Prothrombin Time w/INRon INR Coag (PPP) [Relative time] 4.0 {INR} Invalid Interpretation Code [facility] Comment on above: Result Comment: CRIT ICAL VALUE CALLED TO MARIA TERESA SALVADOR ([facility]) 01/31/25 0949 Steven Fagan. RESULTS READ BACK BY SAME. Performed By: #### L 300.3900 #### [facility] [address] [place], [address] PT Coag (PPP) [Time] 40.0 s High 11.7-14.9 [facility] Comment on above: Performed By: #### L 300.3900 #### [facility] [address] [place], [address] Prothrombin timeOrdered By: Min Marroquin on 01-31-2025 PT Coag (PPP) [Time] 40.0 s High 11.7-14.9 [facility] International normalized rat io (INR) measurement by fingerstickOrdered By: Min Marroquin on 01-24-2025 INR Coag (BldC) [Relative time] 3.8 [facility] Comment on above: Critical Value > 4.0 Protime w/INR Fingerstickon 01-24-2025 INR Coag (PPP) [Relative time] 3.8 {INR} Normal [facility] Comment on above: Result Comment: Crit ical Value > 4.0 Performed By: #### L 9200.0000 #### [facility] [address] [place], [address] Protime Coagsen 38.5 SEC High 11.7-14.9 [facility] Comment on above: Performed By: #### L 9200.0000 #### [facility] [address] [place], [address] Whole blood prothrombin time Ordered By: Min Marroquin on 01-24-2025 PT Coag (Bld) [Time] 38.5 s High 11.7-14.9 [facility] normalized rat io (INR) measurement by fingerstickOrdered By: Min Marroquin on 01-17-2025 INR Coag (BldC) [Relative time] 1.5 [facility] Comment on above: Critical Value > 4.0 Protime w/INR Fingerstickon 01-17-2025 INR Coag (PPP) [Relative time] 1.5 {INR} Normal [facility] Comment on above: Result Comment: Crit ical Value > 4.0 Performed By: #### L 501.9985, L501.9520 #### [facility] [address] [place], [place], [id number] Protime Coagsen 17.2 SEC High 11.7-14.9 [facility] Comment on above: Performed By: #### L 501.9985, L501.9520 #### [facility] [address] [place], [place], [id number] Whole blood prothrombin time Ordered By: Min Marroquin on 01-17-2025 PT Coag (Bld) [Time] 17.2 s High 11.7-14.9 [facility] CNOVon 01-10-2025 CNOV Office Visit (PSYLWM ) RANDOLPH HUNTER ([id number]) 1950 F Date Time Provider Department 01/10/25 11:00 AM GILMER COTTON PSYLWM During your visit today, we recorded the following information about you: Gilmer Cotton, PhD 01/10/2025 12:09 PM Signed [facility] Progress Note Randolph Hunter 01/10/2025 [id number] PROVIDER: Gilmer Cotton, PhD CPT Code: Time: [...] SAFETY SYRINGE) 1 mL 25 gauge x 5/8 Use as directed once a month. blood sugar diagnostic ([employer] VERIO TEST STRIPS) test strip Test blood sugar(s) 3 times daily. Dx: Other DM Code E11.42 Insulin: Yes ketoconazole (NIZORAL) 2 % cream Apply 1 application to affected area once daily. Syringe with Needle, Safety 3 mL 23 gauge x 1 1 Each as directed. Use one each [...] Issues: No change from previous appointment DIAGNOSIS: [place] I (more content not included)... Normal [facility] International normalized rat io (INR) measurement by fingerstickOrdered By: Min Marroquin on 01-09-2025 INR Coag (BldC) [Relative time] 2.9 [facility] Comment on above: Critical Value > 4.0 Protime w/INR Fingerstickon 01-09-2025 INR Coag (PPP) [Relative time] 2.9 {INR} Normal [facility] Comment on above: Result Comment: Crit ical Value > 4.0 Performed By: #### L 9200.0000 #### [facility] [address] [place], [place], [address] Protime Coagsen 30.5 SEC High 11.7-14.9 [facility] Comment on above: Performed By: #### L 9200.0000 #### [facility] [address] [place], [place], [address] Whole blood prothrombin time Ordered By: Mni Marroquin on 01-09-2025 PT Coag (Bld) [Time] 30.5 s High 11.7-14.9 [facility] Urine Cultureon 01-06-2025 URC Klebsiella pneumonia e sp pneum [place] Count 50,000-80,000 Escherichia coli Escherichia coli Klebsiella [...] TMP SMX Islt NORMA <=20 S Normal [facility] Comment on above: Performed By: #### L 400.0001, M100.2199 #### [facility] [address] [place], [place], [id number] Bilirubin Test strip Ql (U)O rdered By: Min Marroquin on 01-03-2025 Bilirubin Ql (U) Negative Negative [facility] Ketones Test strip Ql (U)Ord ered By: Min Marroquin on 01-03-2025 Ketones Ql (U) Negative Negative [facility] Microscopic analysis of urin e for red blood cells (RBC)Ordered By: Min Marroquin on 01-03-2025 Microscopic analysis of urine for red blood cells (RBC) 10-25 SEEN /hpf 0-5 [facility] Mucus LM Ql (Urine sed)Order ed By: Min Marroquin on 01-03-2025 Mucus Ql (Urine sed) 0 SEEN /hpf [facility] Nitrite Test strip Ql (U)Ord ered By: Min Marroquin on 01-03-2025 Nitrite Ql (U) Negative Negative [facility] Protein Test strip Ql (U)Ord ered By: Min Marroquin on 01-03-2025 Protein Ql (U) 100 mg/dl High Negative [facility] Squamous epithelial cells de tection in urine sediment by light microscopyOrdered By: Min Marroquin on 01-03-2025 Epithelial cells.squamous LM Ql (Urine sed) 0 SEEN /hpf 5-10 [facility] Urinalysis, Completeon 01-03 RBC 10-25 SEEN Normal 0-5 [facility] Comment on above: Order Comment: CLAU TER SPECIMEN Performed By: #### L 400.0001, M100.2200 #### [facility] [address] [place], [address] WBC >100 SEEN Normal 0-5 [facility] Comment on above: Order Comment: CLAU TER SPECIMEN Performed By: #### L 400.0001, M100.2200 #### [facility] [address] [place], [address] BACTERIA 0 SEEN Normal None Seen [facility] Comment on above: Order Comment: CLAU TER SPECIMEN Performed By: #### L 400.0001, M100.2200 #### [facility] [address] [place], [address] EPI,SQUAMOUS 0 SEEN Normal 5-10 [facility] Comment on above: Order Comment: CLAU TER SPECIMEN Performed By: #### L 400.0001, M100.2200 #### [facility] [address] [place], [address] Mucus Ql (Urine sed) 0 SEEN Normal [facility] Comment on above: Order Comment: CLAU TER SPECIMEN Performed By: #### L 400.0001, M100.2200 #### [facility] [address] [place], [address] Urine clarityOrdered By: Chavo Marroquin on 01-03-2025 Clarity (U) Turbid Clear [facility] Urine color determinationOrd ered By: Min Marroquin on 01-03-2025 Color (U) Yellow Yellow [facility] Urine cultureOrdered By: Chavo Marroquin on 01-03-2025 Bacteria identified Cx Nom (U) Klebsiella pneumoniae sp pneum Abnormal [facility] Bacteria identified Cx Nom (U) Escherichia coli Abnormal [facility] Urine glucose detectionOrder ed By: Min Marroquin on 01-03-2025 Glucose Ql (U) Normal mg/dl Normal [facility] Urine leukocyte esterase det ection by dipstickOrdered By: Min Marroquin on 01-03-2025 Leukocyte esterase Test strip Ql (U) 500 /ul High Negative [facility] Urine pHOrdered By: Min solis on 01-03-2025 pH (U) 6.0 [pH] 5.0 - 8.0 [facility] Urine sediment bacteria coun t by microscopy (number/high power field)Ordered By: Min Marroquin on 01-03-2025 Bacteria LM.HPF (Urine sed) [#/Area] 0 /[HPF] None Seen [facility] Urine specific gravity measu rementOrdered By: Min Marroquin on 01-03-2025 Specific gravity (U) [Rel density] 1.015 1.002-1.03 0 [facility] Urine urobilinogen measureme ntOrdered By: Min Marroquin on 01-03-2025 Urobilinogen Ql (U) Normal mg/dl Normal [facility] White blood cell countOrdere d By: Min Marrqouin on 01-03-2025 White blood cell count >100 SEEN /hpf 0-5 [facility] International normalized rat io (INR) measurement by fingerstickOrdered By: Min Marroquin on 01-02-2025 INR Coag (BldC) [Relative time] 2.4 [facility] Comment on above: Critical Value > 4.0 Protime w/INR Fingerstickon 01-02-2025 INR Coag (PPP) [Relative time] 2.4 {INR} Normal [facility] Comment on above: Result Comment: Crit ical Value > 4.0 Performed By: #### L 501.9985, L501.9520 #### [facility] [address] [place], [address] Protime Coagsen 25.4 SEC High 11.7-14.9 [facility] Comment on above: Performed By: #### L 501.9985, L501.9520 #### [facility] [address] [place], [address] Whole blood prothrombin time Ordered By: Min Marroquin on 01-02-2025 PT Coag (Bld) [Time] 25.4 s High 11.7-14.9 [facility] normalized rat io (INR) measurement by fingerstickOrdered By: Min Marroquin on 12-19-2024 INR Coag (BldC) [Relative time] 2.3 [facility] Comment on above: Critical Value > 4.0 Protime w/INR Fingerstickon 12-19-2024 INR Coag (PPP) [Relative time] 2.3 {INR} Normal [facility] Comment on above: Result Comment: Crit ical Value > 4.0 Performed By: #### L 501.9985, L501.9520 #### [facility] [address] [place], [place], [address] Protime Coagsen 24.7 SEC High 11.7-14.9 [facility] Comment on above: Performed By: #### L 501.9985, L501.9520 #### [facility] [address] [place], [place], [address] Whole blood prothrombin time Ordered By: Min Marroquin on 12-19-2024 PT Coag (Bld) [Time] 24.7 s High 11.7-14.9 [facility] CNOVon 12-06-2024 CNOV Office Visit (PSYLWM ) RANDOLPH HUNTER ([id number]) 1950 F Date Time Provider Department 12/06/24 11:00 AM GILMER COTTON PSYLWM During your visit today, we recorded the following information about you: Gilmer Cotton, PhD 12/06/2024 12:04 PM Signed [facility] Progress Note Randolph Hunter 12/06/2024 [id number] PROVIDER: Gilmer Cotton, PhD CPT Code: Time: [...] illness Pt moved now a week at [facility] [place] so far and she [...] Assisted Living room while she is in [facility] rooms MEDICATIONS: Per medical record: Current [...] SAFETY SYRINGE) 1 mL 25 gauge x 10/27 Use as directed once a month. blood sugar diagnostic ([employer] VERIO TEST STRIPS) test strip Test blood sugar(s) 3 times daily. Dx: Other DM Code E11.42 Insulin: Yes ketoconazole (NIZORAL) 2 % cream Apply 1 application to affected area once daily. Syringe with Needle, Safety 3 mL 23 gauge x 1 1 Each as directed. Use one each [...] Issues: No change from previous appointment DIAGNOSIS: [place] I: Depres (more content not included)... Normal [facility] Anion gap in Serum or Plasma Ordered By: Min Mraroquin on 12-05-2024 Anion gap [Moles/Vol] 6 mmol/L 5-15 [facility] BUN/creatinine ratioOrdered By: Min Marroquin on 12-05-2024 Urea nitrogen/Creatinine [Mass ratio] 17.2 mg/mg - [facility] Basic Metabolic Profile (BMP )on 12-05-2024 BUN/CRE 17.2 RATIO Normal - [facility] Comment on above: Order Comment: 130.2 Performed By: #### L 500.2500, L100.0500, L300.3900 #### [facility] [address] [place], [address] Calcium [Mass/Vol] 8.5 mg/dL Normal 7.6-11.0 [facility] Comment on above: Order Comment: 130.2 Performed By: #### L 500.2500, L100.0500, L300.3900 #### [facility] [address] [place], [address] Chloride [Moles/Vol] 107 mmol/L Normal 98-108 [facility] Comment on above: Order Comment: 130.2 Performed By: #### L 500.2500, L100.0500, L300.3900 #### [facility] [address] [place], [address] CO2 [Moles/Vol] 26.6 mmol/L Normal 21.0-32.0 [facility] Comment on above: Order Comment: 130.2 Performed By: #### L 500.2500, L100.0500, L300.3900 #### [facility] [address] [place], [address] Creatinine [Mass/Vol] 0.93 mg/dL Normal 0.70-1.20 [facility] Comment on above: Order Comment: 130.2 Performed By: #### L 500.2500, L100.0500, L300.3900 #### [facility] [address] [place], [address] GAP 6 Normal 5-15 [facility] Comment on above: Order Comment: 130.2 Performed By: #### L 500.2500, L100.0500, L300.3900 #### [facility] [address] [place], [address] GFR/1.73 sq M.predicted among non-blacks MDRD (S/P/Bld) [Vol rate/Area] 65 mL/min/{1.73_m2} Normal >60 [facility] Comment on above: Order Comment: 130.2 Result Comment: mL/m in/1.73m2 CKD-EPI Creatinine Equation (2020) Performed By: #### L 500.2500, L100.0500, L300.3900 #### [facility] [address] [place], [address] Glucose [Mass/Vol] 97 mg/dL Normal 70-99 [facility] Comment on above: Order Comment: 130.2 Performed By: #### L 500.2500, L100.0500, L300.3900 #### [facility] [address] [place], [address] Potassium [Moles/Vol] 4.9 mmol/L Normal 3.3-5.1 [facility] Comment on above: Order Comment: 130.2 Result Comment: Hemo lysis present, Results??could be affected. ?? Performed By: #### L 500.2500, L100.0500, L300.3900 #### [facility] [address] [place], [address] Sodium [Moles/Vol] 140 mmol/L Normal 133-145 [facility] Comment on above: Order Comment: 130.2 Performed By: #### L 500.2500, L100.0500, L300.3900 #### [facility] [address] [place], [address] Urea nitrogen [Mass/Vol] 16 mg/dL Normal 4-19 [facility] Comment on above: Order Comment: 130.2 Performed By: #### L 500.2500, L100.0500, L300.3900 #### [facility] [address] [place], [address] CBC-Complete Blood Cnt No ffon 12-05-2024 Erythrocyte distribution width (RBC) [Ratio] 13.6 % Normal 11.6-14.6 [facility] Comment on above: Order Comment: 130.2 Performed By: #### L 500.2500, L100.0500, L300.3900 #### [facility] [address] [place], [address] Hematocrit (Bld) [Volume fraction] 31.9 % Low 37-47 [facility] Comment on above: Order Comment: 130.2 Performed By: #### L 500.2500, L100.0500, L300.3900 #### [facility] [address] [place], [address] Hemoglobin (Bld) [Mass/Vol] 10.4 g/dL Low 12.0-15.0 [facility] Comment on above: Order Comment: 130.2 Performed By: #### L 500.2500, L100.0500, L300.3900 #### [facility] [address] [place], [address] MCH (RBC) [Entitic mass] 30.2 pg Normal 27.0-32.0 [facility] Comment on above: Order Comment: 130.2 Performed By: #### L 500.2500, L100.0500, L300.3900 #### [facility] [address] [place], [address] MCHC (RBC) [Mass/Vol] 32.6 g/dL Normal 32-36 [facility] Comment on above: Order Comment: 130.2 Performed By: #### L 500.2500, L100.0500, L300.3900 #### [facility] [address] [place], [address] MCV (RBC) [Entitic vol] 92.7 fL Normal 81-99 [facility] Comment on above: Order Comment: 130.2 Performed By: #### L 500.2500, L100.0500, L300.3900 #### [facility] [address] [place], [address] Platelet mean volume (Bld) [Entitic vol] 10.1 fL Normal 6.2-12.0 [facility] Comment on above: Order Comment: 130.2 Performed By: #### L 500.2500, L100.0500, L300.3900 #### [facility] [address] [place], [address] Platelets (Bld) [#/Vol] 147 10*3/uL Low 150-450 [facility] Comment on above: Order Comment: 130.2 Performed By: #### L 500.2500, L100.0500, L300.3900 #### [facility] [address] [place], [address] RBC (Bld) [#/Vol] 3.44 10*6/uL Low 4.2-5.4 [facility] Comment on above: Order Comment: 130.2 Performed By: #### L 500.2500, L100.0500, L300.3900 #### [facility] [address] [place], [address] RDW SD 45.9 fl High 35.1-43.9 [facility] Comment on above: Order Comment: 130.2 Performed By: #### L 500.2500, L100.0500, L300.3900 #### [facility] [address] [place], [address] WBC (Bld) [#/Vol] 4.1 10*3/uL Low 4.4-11.0 [facility] Comment on above: Order Comment: 130.2 Performed By: #### L 500.2500, L100.0500, L300.3900 #### [facility] [address] [place], [address] Carbon dioxide, total [Moles /volume] in Central venous bloodOrdered By: Min Marroquin on 12-05-2024 CO2 [Moles/Vol] 26.6 mmol/L 21.0-32.0 [facility] Chloride assayOrdered By: Rhea Marroquin on 12-05-2024 Chloride [Moles/Vol] 107 mmol/L 98-108 [facility] Erythrocyte distribution wid th ratioOrdered By: Min Marroquin on 12-05-2024 Erythrocyte distribution width (RBC) [Ratio] 13.6 % 11.6-14.6 [facility] Erythrocyte distribution wid th standard deviationOrdered By: Min Marroquin on 12-05-2024 Erythrocyte distribution width (RBC) [Ratio] 45.9 fl High 35.1-43.9 [facility] Glomerular filtration rate ( GFR) estimation/1.73 sq m using serum, plasma, or whole bOrdered By: Min Marroquin on 12-05-2024 GFR/1.73 sq M.predicted among non-blacks MDRD (S/P/Bld) [Vol rate/Area] 65 mL/min/{1.73_m2} >60 [facility] Comment on above: mL/min/1.73m2 CKD-EP I Creatinine Equation (2020) Hematocrit Auto (Bld) [Volum e fraction]Ordered By: Min Marroquin on 12-05-2024 Hematocrit (Bld) [Volume fraction] 31.9 % Low 37-47 [facility] Hemoglobin measurementOrdere d By: Min Marroquin on 12-05-2024 Hemoglobin (Bld) [Mass/Vol] 10.4 g/dL Low 12.0-15.0 [facility] International normalized rat io (INR) calculationOrdered By: Min Marroquin on 12-05-2024 INR Coag (Bld) [Relative time] 1.7 {INR} [facility] MCV (mean corpuscular volume ) determinationOrdered By: Min Marroquin on 12-05-2024 MCV (RBC) [Entitic vol] 92.7 fL 81-99 [facility] Mean corpuscular hemoglobin (MCH) determinationOrdered By: Min Marroquin on 12-05-2024 MCH (RBC) [Entitic mass] 30.2 pg 27.0-32.0 [facility] Mean corpuscular hemoglobin concentration (MCHC) determinationOrdered By: Min Marroquin on 12-05-2024 MCHC (RBC) [Mass/Vol] 32.6 g/dL 32-36 [facility] Mean platelet volume determi nationOrdered By: Min Marroquin on 12-05-2024 Platelet mean volume (Bld) [Entitic vol] 10.1 fL 6.2-12.0 [facility] Platelet countOrdered By: Rhea Marroquin on 12-05-2024 Platelets (Bld) [#/Vol] 147 10*3/uL Low 150-450 [facility] Potassium measurement (mass/ volume)Ordered By: Min Marroquin on 12-05-2024 Potassium (Unsp spec) [Mass/Vol] 4.9 mmol/L 3.3-5.1 [facility] Comment on above: Hemolysis present, R esults could be affected. Prothrombin Time w/INRon INR Coag (PPP) [Relative time] 1.7 {INR} Normal [facility] Comment on above: Order Comment: 130.2 Performed By: #### L 500.2500, L100.0500, L300.3900 #### [facility] [address] [place], [address] PT Coag (PPP) [Time] 20.2 s High 11.7-14.9 [facility] Comment on above: Order Comment: 130.2 Performed By: #### L 500.2500, L100.0500, L300.3900 #### [facility] [address] [place], [address] Prothrombin timeOrdered By: Min Marroquin on 12-05-2024 PT Coag (PPP) [Time] 20.2 s High 11.7-14.9 [facility] RBC Auto (Bld) [#/Vol]Ordere d By: Min Marroquin on 12-05-2024 RBC (Bld) [#/Vol] 3.44 10*6/uL Low 4.2-5.4 [facility] Serum creatinine measurement (mass/volume)Ordered By: Min Marroquin on 12-05-2024 Creatinine [Mass/Vol] 0.93 mg/dL 0.70-1.20 [facility] Serum glucose measurement (m ass/volume)Ordered By: Min Marroquin on 12-05-2024 Glucose [Mass/Vol] 97 mg/dL 70-99 [facility] Serum or plasma calcium aura urement (mass/volume)Ordered By: Min Marroquin on 12-05-2024 Calcium [Mass/Vol] 8.5 mg/dL 7.6-11.0 [facility] Serum or plasma urea nitroge n measurement (mass/volume)Ordered By: Min Marroquin on 12-05-2024 Urea nitrogen [Mass/Vol] 16 mg/dL 4-19 [facility] Sodium levelOrdered By: Min Marorquin on 12-05-2024 Sodium [Moles/Vol] 140 mmol/L 133-145 [facility] White blood cell (WBC) count Ordered By: Min Marroquin on 12-05-2024 WBC (Bld) [#/Vol] 4.1 10*3/uL Low 4.4-11.0 [facility] MRI ANKLE WO IVCON LTon 05-2 MRI ANKLE WO IVCON LT * * *Final Report* * * DATE OF EXAM: Nov 08 2024 11:35AM [facility] 0163 - MRI ANKLE WO IVCON [...] number above, please feel free to contact [facility] eRadiology at [phone]. [id number] [facility] CNOVon 10-27-2024 CNOV Office Visit (PODIWS ) RANDOLPH HUNTER ([id number]) 1950 F Date Time Provider Department 10/27/24 [...] and injured herself. She is currently at [facility]. Has a history of [...] Steven Pelaez 10/27/2024 11:29 AM Signed Subjective iSmran is a 74-year-old female with a history [...] when standing; describes pain as feeling like somebody's constantly jabbing at the ankle. - Unable [...] SAFETY SYRINGE) 1 mL 25 gauge x 5/8 Use as directed once a month. 12 Each 0 blood sugar diagnost (more content not included)... 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[facility] Transcribe Date/Time: Nov 01 2024 4:44P Dictated by : JAYDEN JOVEL MD This examination was interpreted and the report reviewed and electronically signed by: JAYDEN JOVEL MD on Nov 01 2024 4:45PM EST [id number] Normal [facility] PT panel Coag (PPP)on 2024 INR Coag (PPP) [Relative time] 2.3 {INR} High 0.9-1.3 [facility] Comment on above: Order Comment: Suzanne garcia Type: BLOOD SPECIMEN Ordering Facility: [facility] Address: [address] [place] [address] Result Comment: Kaycee min K Antagonist (VKA) Therapeutic Range: INR 2 to 3 (Target INR of 2.5) Note: For patients treated with VKA drugs, such as warfarin, the [employer] 2012 Guideline recommends [...] [phone] Performed By: #### 3 4528-0 #### [facility] CLIA [id number] [address] [place] [address] [place] PT Coag (PPP) [Time] 23.1 s High 9.7-13.0 [facility] Comment on above: Order Comment: Suzanne garcia Type: BLOOD SPECIMEN Ordering Facility: [facility] Address: [address] [place] [address] Performed By: #### 3 4528-0 #### [facility] CLIA [id number] [address] [place], [place] [address] [place] [id number] [place] OF [facility] PT panel Coag (PPP)on 2024 INR Coag (PPP) [Relative time] 3.8 {INR} High 0.9-1.3 [facility] Comment on above: Order Comment: Suzanne garcia Type: BLOOD SPECIMEN Ordering Facility: [facility] Address: [address] [place] [address] Result Comment: Kaycee min K Antagonist (VKA) Therapeutic Range: INR 2 to 3 (Target INR of 2.5) Note: For patients treated with VKA drugs, such as warfarin, the [employer] 2012 Guideline recommends [...] [phone] Performed By: #### 3 4528-0 #### [facility] CLIA [id number] [address] [place], [place] [address] [place] [address] [place] PT Coag (PPP) [Time] 37.1 s High 9.7-13.0 [facility] Comment on above: Order Comment: Suzanne garcia Type: BLOOD SPECIMEN Ordering Facility: [facility] Address: [address] [place] [address] Performed By: #### 3 4528-0 #### [facility] CLIA [id number] [address] [place], [place] [address] [address] [place] CNOVon 10-19-2024 CNOV Office Visit (ORMDNA ) RANDOLPH HUNTER ([id number]) 1950 F Date Time Provider Department 10/19/24 [...] SAFETY SYRINGE) 1 mL 25 gauge x 5/8 Use as directed once a month. blood sugar diagnostic ([employer] VERIO TEST STRIPS) test strip Test blood sugar(s) 3 times daily. Dx: Other DM Code E11.42 Insulin: Yes ketoconazole (NIZORAL) 2 % cream Apply 1 application to affected area once daily. Syringe with Needle, Safety 3 mL 23 gauge x 1 1 Each as directed. Use one each [...] Status Change Penicillins Hives Dioxicillin Promethazine Intolerance Fjxlxcp-Uma-Oad Red* Myalgia PAST MEDICAL HISTORY PAST MEDICAL HISTORY Diagnosis Date CAD (coronary artery disease) Carotid a (more content not included)... Normal [facility] Large Joint Arthro/Inj: L kn ee [...] these instructions. Informed Consent Consent Obtained: Verbal Arley Protocol A moment to CARE was completed. [...] the bedside nurse for hospitalized patients) applicable. [facility] CNDSon 09-28-2024 [facility] HNO ID: [id number] Author: SAGE LOERA MD Service: Hospital Medicine [...] No pending results Discharge Disposition Discharge Disposition: Intermediate Facility - Less than 30 Days Activity [...] (cerebral palsy) (HCC) (POA: Yes) --Presented to [facility] for evaluation of left knee pain [...] lupus erythematosus) (HCC) (POA: Yes) --Plaquenil as FIELD ENUMERATOR T (more content not included)... Normal [facility] Magnesium SerPl-mCncon 09-28 Magnesium [Mass/Vol] 1.7 mg/dL Normal 1.7-2.3 [facility] Comment on above: Order Comment: Suzanne garcia Type: BLOOD SPECIMENOrdering Facility: [facility] Address: [address] [place] [address] Performed By: #### 1 9123-9 ####[facility] LABORATORYCLIA [id number] [place] [address] [facility] NURSING PROGon 09-28-2024 NURSING PROG HNO ID: [id number] Author: CHARLEY BARRIENTOS RN Service: Nursing Author Type: Registered Nurse Type: Nursing Progress Note Filed: 09/28/2024 16:32 Note Text: Other: 1625: Patient discharged in stable condition. Left floor via cart w/[employer]. Discharge paperwork and all personal belongings w/patient. Normal [facility] PT panel Coag (PPP)on 2024 INR Coag (PPP) [Relative time] 2.1 {INR} High 0.9-1.3 [facility] Comment on above: Order Comment: Suzanne garcia Type: BLOOD SPECIMENOrdering Facility: [facility] Address: [address] [place] [address] Result Comment: Kaycee min K Antagonist (VKA) Therapeutic Range: INR 2 to 3 (Target INR of 2.5) Note: For patients treated with VKA drugs, such as warfarin, the [employer] 2012 Guideline recommends [...] (target INR of 3). Keegan SOUZA et ezio. Chest 2012, 141:7S-47S Roshni CASTILLO et al. [facility] 2017, 70: 252-289 Performed By: #### 3 4528-0 ####[facility] LABORATORYCLIA [id number] [address] STATES OF [facility] PT Coag (PPP) [Time] 22.0 s High 9.7-13.0 [facility] Comment on above: Order Comment: Speci men Type: BLOOD SPECIMENOrdering Facility: [facility] Address: [address] [place] [address] Performed By: #### 3 4528-0 ####[facility] LABORATORYCLIA [id number] [address] PT panel Coag (PPP)on 2024 INR Coag (PPP) [Relative time] 2.8 {INR} High 0.9-1.3 [facility] Comment on above: Order Comment: Speci men Type: BLOOD SPECIMENOrdering Facility: [facility] Address: [address] [place] [address] Result Comment: Kaycee min K Antagonist (VKA) Therapeutic Range: INR 2 to 3 (Target INR of 2.5) Note: For patients treated with VKA drugs, such as warfarin, the [employer] 2012 Guideline recommends [...] 70: 252-289 Performed By: #### 3 4528-0 ####[facility] LABORATORYCLIA [id number] [place] [id number] [place] PT Coag (PPP) [Time] 27.9 s High 9.7-13.0 [facility] Comment on above: Order Comment: Speci men Type: BLOOD SPECIMENOrdering Facility: [facility] Address: [address] [place] [address] Performed By: #### 3 4528-0 ####[facility] LABORATORYCLIA [id number] [place] [address] [facility] NUTRITIONon 09-26-2024 NUTRITION HNO ID: [id number] Author: SALVADOR ISLAS RD Service: Nutrition Therapy [...] 09/19/24 0212 Anthropometrics: Height: 157.5 cm (5' 2) Weight: 94.9 kg (209 lb 3.5 oz) Body mass index is 38.27 kg/m?. Lines, Drains, and Airways Drain Duration External Collection Device 09/18/24 2332 [facility] 7 days MNT Billing: $ Reassessment: 1-15 minutes SIGNATURE: Salvador Islas RD PATIENT NAME: Randolph Hunter DATE: September 26, 2024 TIME: 3:09 PM Normal [facility] PT panel Coag (PPP)on 2024 INR Coag (PPP) [Relative time] 4.1 {INR} High 0.9-1.3 [facility] Comment on above: Order Comment: Suzanne garcia Type: BLOOD SPECIMENOrdering Facility: [facility] Address: [address] [place], [place] [address] Result Comment: Kaycee min K Antagonist (VKA) Therapeutic Range: INR 2 to 3 (Target INR of 2.5) Note: For patients treated with VKA drugs, such as warfarin, the [employer]icians 2012 Guideline recommends [...] 70: 252-289 Performed By: #### 3 4528-0 ####[facility] LABORATORYCLIA [id number] [place] [address] [place] PT Coag (PPP) [Time] 39.9 s High 9.7-13.0 [facility] Comment on above: Order Comment: Suzanne garcia Type: BLOOD SPECIMENOrdering Facility: [facility] Address: [address] [place], [place] [address] Performed By: #### 3 4528-0 ####[facility] LABORATORYCLIA [id number] [place] [address] [place] THERAPY NTon 09-26-2024 THERAPY NT HNO ID: [id number] Author: ESTELLE CAGE PT Service: Physical Therapy Author Type: Physical Therapist Type: Therapy (PT/OT/Speech/Resp) Filed: 09/26/2024 12:08 Note Text: Summary: PT treatment Physical Therapy Treatment Summary SERVICE DATE: 09/26/2024 SERVICE TIME: 1130 to 1155 ROOM: [id number] PT 6 Clicks Score: 14 DISCHARGE RECOMMENDATIONS [...] is struggling to ambulate. Patient admitted to [facility] with Dx: Decreased activities of daily living (ADL), Fall at home, initial encounter Relevant Past Medical History: DM, edema, depression,asthma, obesity, irsutism, venous insufficiency, oseteomyeliitis of foot, SLE, cerebral palsy, pulmonary embolism, hypothyroidism, insomnai, CAD, migraines, HTN, hysterectomy HOME LIVING Patient Lives With: Facility Care, Spouse, Other: See Comment Comments: [place] with spouse Assistance Available: 24-Hour Comments: LONG-TERM staff for toileting and shower Entry To Home: No Stairs Number Of Stairs To Bed/Bath: 0 Tub/Shower Type: Accessible WIS with shower chair + grab bars, has assistance/supervision for transfers Laundry: LONG-TERM staff completes Equipment Owned: Lift Chair, Commode- [...] DIAGNOSIS Reduced mobility-other TREATMENT INTERVENTIONS Therapeutic Activity (23386) Timed Code Treatment (minutes): 25 Skilled Treatment Time (minutes): 25 Therapeutic Activity (45532) Treatment Minutes: 25 $ Therapeutic Activity (95527) Billed Units: 2 units TRAINING AND EDUCATION [...] Assistance, Additional Inform (more content not included)... [facility] THERAPY NT HNO ID: [id number] Author: BARBARA CHU OTR/Abiodun Service: Occupational Therapy Author Type: Occupational Therapist Type: Therapy (PT/OT/Speech/Resp) Filed: 09/26/2024 11:51 Note Text: Summary: OT precert note Occupational Therapy Treatment Summary SERVICE DATE: 09/26/2024 SERVICE TIME: 1100 to 1136 ROOM: [place] [address] OT 6 Clicks Score: 13 DISCHARGE RECOMMENDATIONS [...] is struggling to ambulate. Patient admitted to [facility] with Dx: Decreased activities of daily living (ADL), Fall at home, initial encounter Relevant Past Medical History: DM, edema, depression,asthma, obesity, irsutism, venous insufficiency, oseteomyeliitis of foot, SLE, cerebral palsy, pulmonary embolism, hypothyroidism, insomnai, CAD, migraines, HTN, hysterectomy HOME LIVING Patient Lives With: Facility Care, Spouse, Other: See Comment Comments: [place] with spouse Assistance Available: 24-Hour Comments: LONG-TERM staff for toileting and shower Entry To Home: No Stairs Number Of Stairs To Bed/Bath: 0 Tub/Shower Type: Accessible WIS with shower chair + grab bars, has assistance/supervision for transfers Laundry: LONG-TERM staff completes Equipment Owned: Lift Chair, Commode- [...] symptoms and signs-other TREATMENT INTERVENTIONS Therapeutic Exercise (84173), Self Intermediate Management (68528) Timed Code Treatment (minutes): 27 Skilled Treatment [...] Contact Guard Assista (more content not included)... [facility] THERAPY NT HNO ID: [id number] Author: ESTELLE CAGE PT Service: Physical Therapy Author Type: Physical Therapist Type: Therapy (PT/OT/Speech/Resp) Filed: 09/26/2024 10:54 Note Text: PHYSICAL THERAPY MISSED VISIT SERVICE DATE: 09/26/2024 SERVICE TIME: 1045 ROOM: [place] [address] Patient not seen due to Patient Not Available.patient was cleaned up and had another bowel movement and has called for assist getting cleaned up. Will re approach when available/appropriate. Secure chat to team and spoke with cm. SIGNATURE: Estelle Cage PT PATIENT NAME: Randolph Hunter DATE: September 26, 2024 TIME: 10:53 AM [facility] NT HNO ID: [id number] Author: ESTELLE CAGE PT Service: Physical Therapy Author Type: Physical Therapist Type: Therapy (PT/OT/Speech/Resp) Filed: 09/26/2024 09:42 Note Text: Summary: PT missed visit PHYSICAL THERAPY MISSED VISIT SERVICE DATE: 09/26/2024 SERVICE TIME: 929 ROOM: [place] [address] Patient not seen due to Patient Not Available. Patient was incontinent of bowel and PCNA in room to get patient cleaned up. Received request from for precert. Will re approach as patient is available. SIGNATURE: Estelle Cage PT PATIENT NAME: Randolph Hunter DATE: September 26, 2024 TIME: 9:41 AM [facility] THERAPY NT HNO ID: [id number] Author: TANIA PERDUE OT/Abiodun Service: Occupational Therapy Author Type: Occupational Therapist Type: Therapy (PT/OT/Speech/Resp) Filed: 09/26/2024 09:21 Note Text: Summary: OT Missed Visit OCCUPATIONAL THERAPY MISSED VISIT SERVICE DATE: 09/26/2024 SERVICE TIME: 907 ROOM: [place] [address] Patient not seen due to Patient Not Available. Initiated OT session however pt became incontinent of bowel during progression of supine>sit. PCNA and RN notified, deferred further OT at this time. CM notified as this patient has precert needs. Will re-attempt as schedule allows. SIGNATURE: Tania Perdue OT/Abiodun PATIENT NAME: Randolph Hunter DATE: September 26, 2024 TIME: 9:19 AM [facility] CBC panel Auto (Bld)on 09-25 Erythrocyte distribution width (RBC) [Ratio] 13.5 % Normal 11.5-15.0 [facility] Comment on above: Order Comment: Speci men Type: BLOOD SPECIMENOrdering Facility: [facility] Address: [address] [place] [address] Performed By: #### 5 8410-2 ####[facility] LABORATORYCLIA [id number] [address] [place] Hematocrit (Bld) [Volume fraction] 38.8 % Normal 36.0-46.0 [facility] Comment on above: Order Comment: Speci men Type: BLOOD SPECIMENOrdering Facility: [facility] Address: [address] [place] [address] Performed By: #### 5 8410-2 ####[facility] LABORATORYCLIA [id number] [address] [place] Hemoglobin (Bld) [Mass/Vol] 13.1 g/dL Normal 11.5-15.5 [facility] Comment on above: Order Comment: Speci men Type: BLOOD SPECIMENOrdering Facility: [facility] Address: [address] [place] [address] Performed By: #### 5 8410-2 ####[facility] LABORATORYCLIA [id number] [address] [place] MCH (RBC) [Entitic mass] 30.7 pg Normal 26.0-34.0 [facility] Comment on above: Order Comment: Speci men Type: BLOOD SPECIMENOrdering Facility: [facility] Address: [address] [place] [address] Performed By: #### 5 8410-2 ####[facility] LABORATORYCLIA [id number] [address] [place] MCHC (RBC) [Mass/Vol] 33.8 g/dL Normal 30.5-36.0 [facility] Comment on above: Order Comment: Speci men Type: BLOOD SPECIMENOrdering Facility: [facility] Address: [address] [place] [address] Performed By: #### 5 8410-2 ####[facility] LABORATORYCLIA [id number] [address] [place] MCV (RBC) [Entitic vol] 90.9 fL Normal 80.0-100.0 [facility] Comment on above: Order Comment: Speci men Type: BLOOD SPECIMENOrdering Facility: [facility] Address: [address] [place] [address] Performed By: #### 5 8410-2 ####[facility] LABORATORYCLIA [id number] [address] [place] Nucleated RBC (Bld) [#/Vol] 10*3/uL Normal <0.01 [facility] Comment on above: Order Comment: Speci men Type: BLOOD SPECIMENOrdering Facility: [facility] Address: [address] [place] [address] Performed By: #### 5 8410-2 ####[facility] LABORATORYCLIA [id number] [address] [place] Platelet mean volume (Bld) [Entitic vol] 10.2 fL Normal 9.0-12.7 [facility] Comment on above: Order Comment: Speci men Type: BLOOD SPECIMENOrdering Facility: [facility] Address: [address] [place] [address] Performed By: #### 5 8410-2 ####[facility] LABORATORYCLIA [id number] [address] [place] Platelets (Bld) [#/Vol] 200 10*3/uL Normal 150-400 [facility] Comment on above: Order Comment: Speci men Type: BLOOD SPECIMENOrdering Facility: [facility] Address: [address] [place] [address] Performed By: #### 5 8410-2 ####[facility] LABORATORYCLIA [id number] [place] [address] [place] RBC (Bld) [#/Vol] 4.27 10*6/uL Normal 3.90-5.20 [facility] Comment on above: Order Comment: Speci men Type: BLOOD SPECIMENOrdering Facility: [facility] Address: [address] [place] [address] Performed By: #### 5 8410-2 ####[facility] LABORATORYCLIA [id number] [place] [address] [place] WBC (Bld) [#/Vol] 10.28 10*3/uL Normal 3.70-11.00 [facility] Comment on above: Order Comment: Speci men Type: BLOOD SPECIMENOrdering Facility: [facility] Address: [address] [place] [address] Performed By: #### 5 8410-2 ####[facility] LABORATORYCLIA [id number] [place] [address] [facility] [place] Comprehensive metabolic 2000 panelon 09-25-2024 Albumin [Mass/Vol] 3.0 g/dL Low 3.9-4.9 [facility] Comment on above: Order Comment: Speci men Type: BLOOD SPECIMENOrdering Facility: [facility] Address: [address] [place] [address] Performed By: #### 1 9123-9, 61649-2 ####[facility] LABORATORYCLIA [id number] [address] [place] ALP [Catalytic activity/Vol] 41 U/L Normal 34-123 [facility] Comment on above: Order Comment: Speci men Type: BLOOD SPECIMENOrdering Facility: [facility] Address: [address] [place] [address] Performed By: #### 1 9123-9, 77378-8 ####[facility] LABORATORYCLIA [id number] [address] [place] ALT [Catalytic activity/Vol] 11 U/L Normal 7-38 [facility] Comment on above: Order Comment: Speci men Type: BLOOD SPECIMENOrdering Facility: [facility] Address: [address] [place] [address] Performed By: #### 1 9123-9, 04086-3 ####[facility] LABORATORYCLIA [id number] [place] [address] [place] Anion gap [Moles/Vol] 11 mmol/L Normal 8-15 [facility] Comment on above: Order Comment: Speci men Type: BLOOD SPECIMENOrdering Facility: [facility] Address: [address] [place] [address] Performed By: #### 1 23-9, 51179-8 ####[facility] LABORATORYCLIA [id number] [place] [address] [place] AST [Catalytic activity/Vol] 21 U/L Normal 13-35 [facility] Comment on above: Order Comment: Speci men Type: BLOOD SPECIMENOrdering Facility: [facility] Address: [address] [place] [address] Performed By: #### 1 239, ####[facility] LABORATORYCLIA [id number] [place] [address] [place] Bilirubin [Mass/Vol] 0.3 mg/dL Normal 0.2-1.3 [facility] Comment on above: Order Comment: Speci men Type: BLOOD SPECIMENOrdering Facility: [facility] Address: [address] [place] [address] Performed By: #### 1 239, 50631-2 ####[facility] LABORATORYCLIA [id number] [place] [address] [place] Calcium [Mass/Vol] 9.0 mg/dL Normal 8.5-10.2 [facility] Comment on above: Order Comment: Speci men Type: BLOOD SPECIMENOrdering Facility: [facility] Address: [address] [place] [address] Performed By: #### 1 23-9, 36201-1 ####[facility] LABORATORYCLIA [id number] [place] [address] [place] Chloride [Moles/Vol] 99 mmol/L Normal 98-107 [facility] Comment on above: Order Comment: Speci men Type: BLOOD SPECIMENOrdering Facility: [facility] Address: [address] [place] [address] Performed By: #### 1 23-9, 60180-5 ####[facility] LABORATORYCLIA [id number] [place] [address] [place] CO2 [Moles/Vol] 24 mmol/L Normal 22-30 [facility] Comment on above: Order Comment: Speci men Type: BLOOD SPECIMENOrdering Facility: [facility] Address: [address] [place] [address] Performed By: #### 1 9123-9, 75285-7 ####[facility] LABORATORYCLIA [id number] [place] [address] [place] Creatinine [Mass/Vol] 0.66 mg/dL Normal 0.58-0.96 [facility] Comment on above: Order Comment: Suzanne garcia Type: BLOOD SPECIMENOrdering Facility: [facility] Address: [address] [place] [address] Performed By: #### 1 9123-9, 49779-4 ####[facility] LABORATORYCLIA [id number] [address] Creatinine and Glomerular filtration rate.predicted panel (S/P/Bld) 93 mL/min/1.73m??? Normal >=60 [facility] Comment on above: Order Comment: Suzanne radha Type: BLOOD SPECIMENOrdering Facility: [facility] Address: [address] [place] [address] Result Comment: Winifred mated Glomerular Filtration Rate [...] actual GFR. Performed By: #### 1 9123-9, 24405-1 ####[facility] LABORATORYCLIA [id number] [place] [id number] [place] Glucose [Mass/Vol] 202 mg/dL High 74-99 [facility] Comment on above: Order Comment: Suzanne garcia Type: BLOOD SPECIMENOrdering Facility: [facility] Address: [address] [place] [address] Result Comment: The [place] Diabetes Association (ADA) provides guidance for cutoff [...] Standards of Medical Care in Diabetes 2016, [place] [employer] Association. Diabetes Care. 2016.39(Suppl 1). Performed By: #### 1 9123-9, 29091-0 ####[facility] LABORATORYCLIA [id number] [place] [address] [place] Potassium [Moles/Vol] 4.4 mmol/L Normal 3.7-5.1 [facility] Comment on above: Order Comment: Suzanne garcia Type: BLOOD SPECIMENOrdering Facility: [facility] Address: [address] [place] [address] Performed By: #### 1 9123-9, 47413-1 ####[facility] LABORATORYCLIA [id number] [place] [address] [place] Protein [Mass/Vol] 6.0 g/dL Low 6.3-8.0 [facility] Comment on above: Order Comment: Suzanne garcia Type: BLOOD SPECIMENOrdering Facility: [facility] Address: [address] [place] [address] Performed By: #### 1 9123-9, 05245-8 ####[facility] LABORATORYCLIA [id number] [place] [address] [place] Sodium [Moles/Vol] 134 mmol/L Low 136-144 [facility] Comment on above: Order Comment: Suzanne garcia Type: BLOOD SPECIMENOrdering Facility: [facility] Address: [address] [place] [address] Performed By: #### 1 23-9, 66204-4 ####[facility] LABORATORYCLIA [id number] [place] [address] [place] Urea nitrogen [Mass/Vol] 14 mg/dL Normal 7-21 [facility] Comment on above: Order Comment: Suzanne garcia Type: BLOOD SPECIMENOrdering Facility: [facility] Address: [address] [place] [address] Performed By: #### 1 9123-9, 65221-4 ####[facility] LABORATORYCLIA [id number] [place] [address] [place] Magnesium SerPl-mCncon 09-25 Magnesium [Mass/Vol] 1.5 mg/dL Low 1.7-2.3 [facility] Comment on above: Order Comment: Suzanne garcai Type: BLOOD SPECIMENOrdering Facility: [facility] Address: [address] [place], [place] [address] [address] Performed By: #### 1 9123-9, 10906-1 ####[facility] LABORATORYCLIA [id number] [place] [id number] [place] PT panel Coag (PPP)on 2024 INR Coag (PPP) [Relative time] 4.2 {INR} High 0.9-1.3 [facility] Comment on above: Order Comment: Suzanne garcia Type: BLOOD SPECIMENOrdering Facility: [facility] Address: [address] [place] [address] [place] [address] Result Comment: Kaycee min K Antagonist (VKA) Therapeutic Range: INR 2 to 3 (Target INR of 2.5) Note: For patients treated with VKA drugs, such as warfarin, the [employer] 2012 Guideline recommends [...] 70: 252-289 Performed By: #### 3 4528-0 ####[facility] LABORATORYCLIA [id number] [place] [address] [place] PT Coag (PPP) [Time] 41.3 s High 9.7-13.0 [facility] Comment on above: Order Comment: Suzanne garcia Type: BLOOD SPECIMENOrdering Facility: [facility] Address: [facility] [place] [id number] Performed By: #### 3 4528-0 ####[facility] LABORATORYCLIA [id number] [place] [address] [facility] CONSULT PROGon 09-23-2024 CONSULT PROG HNO ID: [id number] Author: PIPE FREEMAN RPh Service: Pharmacy Author [...] Freeman RPh DATE/TIME: 09/23/2024 12:07 PM Normal [facility] PT panel Coag (PPP)on 2024 INR Coag (PPP) [Relative time] 2.9 {INR} High 0.9-1.3 [facility] Comment on above: Order Comment: Suzanne garcia Type: BLOOD SPECIMENOrdering Facility: [facility] Address: [place] [id number] Result Comment: Kaycee min K Antagonist (VKA) Therapeutic Range: INR 2 to 3 (Target INR of 2.5) Note: For patients treated with VKA drugs, such as warfarin, the [employer]icians 2012 Guideline recommends [...] Gaytan. Chest 2012, 141:7S-47S Roshni CASTILLO et ezio. [facility] 2017, 70: 252-289 Performed By: #### 3 4528-0 ####[facility] LABORATORYCLIA [id number] [place] [address] [place] PT Coag (PPP) [Time] 29.1 s High 9.7-13.0 [facility] Comment on above: Order Comment: Suzanne garcia Type: BLOOD SPECIMENOrdering Facility: [facility] Address: [address] [place] [address] Performed By: #### 3 4528-0 ####[facility] LABORATORYCLIA [id number] [address] OF [facility] PT panel Coag (PPP)on 2024 INR Coag (PPP) [Relative time] 2.8 {INR} High 0.9-1.3 [facility] Comment on above: Order Comment: Suzanne garcia Type: BLOOD SPECIMENOrdering Facility: [facility] Address: [address] [place] [address] Result Comment: Kaycee min K Antagonist (VKA) Therapeutic Range: INR 2 to 3 (Target INR of 2.5) Note: For patients treated with VKA drugs, such as warfarin, the [employer] 2012 Guideline recommends [...] 70: 252-289 Performed By: #### 3 4528-0 ####METCALF LABORATORYCLIA [id number] [place] [address] [facility] PT Coag (PPP) [Time] 27.8 s High 9.7-13.0 [facility] Comment on above: Order Comment: Speci men Type: BLOOD SPECIMENOrdering Facility: [facility] Address: [facility] [place] [place] [address] Performed By: #### 3 4528-0 ####METCALF LABORATORYCLIA [id number] [place] [address] [facility] THERAPY NTon 09-22-2024 THERAPY NT HNO ID: [id number] Author: ESTELLE CAGE PT Service: Physical Therapy Author Type: Magazine Keeper Type: Therapy (PT/OT/Speech/Resp) Filed: 09/22/2024 17:13 Note Text: Attestation signed by Estelle Cage PT at 09/22/2024 5:13 PM I reviewed and agree with the documentation corresponding to this therapy visit. SIGNATURE: Estelle Cage PT DATE: September 22, 2024 TIME: 5:13 PM Summary: PT Treat Physical Therapy Treatment Summary SERVICE DATE: 09/22/2024 SERVICE TIME: 1408 to 1439 ROOM: [id number]- PT 6 Clicks Score: 12 DISCHARGE RECOMMENDATIONS [...] is struggling to ambulate. Patient admitted to [facility] with Dx: Decreased activities of daily living (ADL), Fall at home, initial encounter Relevant Past Medical History: DM, edema, depression,asthma, obesity, irsutism, venous insufficiency, oseteomyeliitis of foot, SLE, cerebral palsy, pulmonary embolism, hypothyroidism, insomnai, CAD, migraines, HTN, hysterectomy HOME LIVING Patient Lives With: Facility Care, Spouse, Other: See Comment Comments: LONG-TERM with spouse Assistance Available: 24-Hour Comments: LONG-TERM staff for toileting and shower Entry To Home: No Stairs Number Of Stairs To Bed/Bath: 0 Tub/Shower Type: Accessible WIS with shower chair + grab bars, has assistance/supervision for transfers Laundry: LONG-TERM staff completes Equipment Owned: Lift Chair, Commode- [...] DIAGNOSIS Reduced mobility-other TREATMENT INTERVENTIONS Therapeutic Activity (91559) Timed Code Treatment (minutes): 31 Skilled Treatment Time (minutes): 31 Therapeutic Activity (47295) Treatment Minutes: 31 $ Therapeutic Activity (56856) Billed Units: 2 units TRAINING AND EDUCATION [...] Sit: Modified In (more content not included)... [facility] THERAPY NT HNO ID: [id number] Author: CHRISTIANO MAYEN OT/Abiodun Service: ? Author Type: Occupational Therapist Type: Therapy (PT/OT/Speech/Resp) Filed: 09/22/2024 09:46 Note Text: Summary: OT Treatment Occupational Therapy Treatment Summary SERVICE DATE: 09/22/2024 SERVICE TIME: 857 to 939 ROOM: IV-8D-1181 OT 6 Clicks Score: 14 DISCHARGE RECOMMENDATIONS [...] is struggling to ambulate. Patient admitted to [facility] with Dx: Decreased activities of daily living (ADL), Fall at home, initial encounter Relevant Past Medical History: DM, edema, depression,asthma, obesity, irsutism, venous insufficiency, oseteomyeliitis of foot, SLE, cerebral palsy, pulmonary embolism, hypothyroidism, insomnai, CAD, migraines, HTN, hysterectomy HOME LIVING Patient Lives With: Facility Care, Spouse, Other: See Comment Comments: LONG-TERM with spouse Assistance Available: 24-Hour Comments: LONG-TERM staff for toileting and shower Entry To Home: No Stairs Number Of Stairs To Bed/Bath: 0 Tub/Shower Type: Accessible WIS with shower chair + grab bars, has assistance/supervision for transfers Laundry: LONG-TERM staff completes Equipment Owned: Lift Chair, Commode- [...] (generalized), Unsteadiness on feet TREATMENT INTERVENTIONS Self Intermediate Management (93878), Therapeutic Activity (36469) Timed Code Treatment (minutes): 40 Skilled Treatment Time (minutes): 40 TRAINING AND EDUCATION PROVIDED Activity Adaptation/Compensatory Strategies, Adaptive Equipment/DME, Bed Mobility, Benefits of In-Hospital Mobility, Cognitive Skills, Command Following, Discharge Planning, Expected Functional Level, Functional Mobility Involving ADLs, Grooming Tasks, Fine Motor Coordination, Insight into Deficits, Lower Extremity Dressing, Feeding Tasks, Memory/Attention, Orientation, Positioning, Role of Occupational Therapy, Safety/Judgment, Sitting Balance to Improve [place] with ADLs/Self-Care, Standing Balance to Improve [place] with ADLs/Self-Care, Transfer - Sit to Stand, Upper Extremity Bathing THERAPEUTIC SKILLS USED Activity Dosing, Cues for Sequencing/Proper Technique for Activity, Cuing Tactile, Cuing Verbal, Cuing Visual, Facilitation of Joint Range of Motion, Movement Facilitation, Muscle Activation Facilitation, Physical Assist, Task Analysis Learning, Teach-Back fo (more content not included)... Normal [facility] CBC panel Auto (Bld)on 09-21 Erythrocyte distribution width (RBC) [Ratio] 13.2 % Normal 11.5-15.0 [facility] Comment on above: Order Comment: Speci men Type: BLOOD SPECIMENOrdering Facility: [facility] Address: [address] [place] [address] Performed By: #### 5 8410-2 ####CERVANTES LABORATORYCLIA [id number] [address] OF [facility] Hematocrit (Bld) [Volume fraction] 33.6 % Low 36.0-46.0 [facility] Comment on above: Order Comment: Speci men Type: BLOOD SPECIMENOrdering Facility: [facility] Address: [address] [place] [address] Performed By: #### 5 8410-2 ####CERVANTES LABORATORYCLIA [id number] [address] OF [facility] Hemoglobin (Bld) [Mass/Vol] 11.4 g/dL Low 11.5-15.5 [facility] Comment on above: Order Comment: Speci men Type: BLOOD SPECIMENOrdering Facility: [facility] Address: [address] [place] [address] Performed By: #### 5 8410-2 ####CERVANTES LABORATORYCLIA [id number] [address] STATES [facility] MCH (RBC) [Entitic mass] 30.8 pg Normal 26.0-34.0 [facility] Comment on above: Order Comment: Speci men Type: BLOOD SPECIMENOrdering Facility: [facility] Address: [address] [place] [address] Performed By: #### 5 8410-2 ####CERVANTES LABORATORYCLIA [id number] [address] MCHC (RBC) [Mass/Vol] 33.9 g/dL Normal 30.5-36.0 [facility] Comment on above: Order Comment: Speci men Type: BLOOD SPECIMENOrdering Facility: [facility] Address: [address] [place] [address] Performed By: #### 5 8410-2 ####CERVANTES LABORATORYCLIA [id number] [address] [place] MCV (RBC) [Entitic vol] 90.8 fL Normal 80.0-100.0 [facility] Comment on above: Order Comment: Speci men Type: BLOOD SPECIMENOrdering Facility: [facility] Address: [address] [place] [address] Performed By: #### 5 8410-2 ####CERVANTES LABORATORYCLIA [id number] [address] OF [place] Nucleated RBC (Bld) [#/Vol] 10*3/uL Normal <0.01 [facility] Comment on above: Order Comment: Speci men Type: BLOOD SPECIMENOrdering Facility: [facility] Address: [address] [place] [address] Performed By: #### 5 8410-2 ####CERVANTES LABORATORYCLIA [id number] [address] [place] Platelet mean volume (Bld) [Entitic vol] 10.2 fL Normal 9.0-12.7 [facility] Comment on above: Order Comment: Speci men Type: BLOOD SPECIMENOrdering Facility: [facility] Address: [address] [place] [address] Performed By: #### 5 8410-2 ####CERVANTES LABORATORYCLIA [id number] [address] [place] Platelets (Bld) [#/Vol] 177 10*3/uL Normal 150-400 [facility] Comment on above: Order Comment: Speci men Type: BLOOD SPECIMENOrdering Facility: [facility] Address: [address] [place] [address] Performed By: #### 5 8410-2 ####CERVANTES LABORATORYCLIA [id number] [address] [place] RBC (Bld) [#/Vol] 3.70 10*6/uL Low 3.90-5.20 [facility] Comment on above: Order Comment: Speci men Type: BLOOD SPECIMENOrdering Facility: [facility] Address: [address] [place] [address] Performed By: #### 5 8410-2 ####CERVANTES LABORATORYCLIA [id number] [address] WBC (Bld) [#/Vol] 5.94 10*3/uL Normal 3.70-11.00 [facility] Comment on above: Order Comment: Speci men Type: BLOOD SPECIMENOrdering Facility: [facility] Address: [address] [place] [address] Performed By: #### 5 8410-2 ####CERVANTES LABORATORYCLIA [id number] [address] Comprehensive metabolic 2000 panelon 09-21-2024 Albumin [Mass/Vol] 2.8 g/dL Low 3.9-4.9 [facility] Comment on above: Order Comment: Speci men Type: BLOOD SPECIMENOrdering Facility: [facility] Address: [address] [place] [address] Performed By: #### 1 9123-9, 28132-7 ####CERVANTES LABORATORYCLIA [id number] [address] ALP [Catalytic activity/Vol] 33 U/L Low 34-123 [facility] Comment on above: Order Comment: Speci men Type: BLOOD SPECIMENOrdering Facility: [facility] Address: [address] [place] [address] Performed By: #### 1 9123-9, 59220-1 ####CERVANTES LABORATORYCLIA [id number] [address] ALT [Catalytic activity/Vol] 7 U/L Normal 7-38 [facility] Comment on above: Order Comment: Speci men Type: BLOOD SPECIMENOrdering Facility: [facility] Address: [address] [place] [address] Performed By: #### 1 9123-9, 60889-2 ####CERVANTES LABORATORYCLIA [id number] [address] [place] Anion gap [Moles/Vol] 8 mmol/L Normal 8-15 [facility] Comment on above: Order Comment: Speci men Type: BLOOD SPECIMENOrdering Facility: [facility] Address: [address] [facility] [place] [address] Performed By: #### 1 23-9, 78930-3 ####CERVANTES LABORATORYCLIA [id number] [place] [address] [place] AST [Catalytic activity/Vol] 18 U/L Normal 13-35 [facility] Comment on above: Order Comment: Speci men Type: BLOOD SPECIMENOrdering Facility: [facility] Address: [address] [place] [address] Performed By: #### 1 9, ####CERVANTES LABORATORYCLIA [id number] [place] [address] [place] Bilirubin [Mass/Vol] 0.2 mg/dL Normal 0.2-1.3 [facility] Comment on above: Order Comment: Speci men Type: BLOOD SPECIMENOrdering Facility: [facility] Address: [address] [place] [address] Performed By: #### 1 23-9, 62415-0 ####CERVNATES LABORATORYCLIA [id number] [place] [address] [place] Calcium [Mass/Vol] 8.4 mg/dL Low 8.5-10.2 [facility] Comment on above: Order Comment: Speci men Type: BLOOD SPECIMENOrdering Facility: [facility] Address: [address] [place] [address] Performed By: #### 1 23-9, ####CERVANTES LABORATORYCLIA [id number] [place] [address] [place] Chloride [Moles/Vol] 103 mmol/L Normal 98-107 [facility] Comment on above: Order Comment: Speci men Type: BLOOD SPECIMENOrdering Facility: [facility] Address: [address] [place] [address] Performed By: #### 1 23-9, 21904-9 ####CERVANTES LABORATORYCLIA [id number] [place] [address] [place] CO2 [Moles/Vol] 27 mmol/L Normal 22-30 [facility] Comment on above: Order Comment: Suzanne garcia Type: BLOOD SPECIMENOrdering Facility: [facility] Address: [address] [place] [address] Performed By: #### 1 9123-9, 21740-9 ####CERVANTES LABORATORYCLIA [id number] [place] [address] [place] Creatinine [Mass/Vol] 0.79 mg/dL Normal 0.58-0.96 [facility] Comment on above: Order Comment: Suzanne garcia Type: BLOOD SPECIMENOrdering Facility: [facility] Address: [address] [place] [address] Performed By: #### 1 9123-9, 17200-7 ####CERVANTES LABORATORYCLIA [id number] [address] Creatinine and Glomerular filtration rate.predicted panel (S/P/Bld) 79 mL/min/1.73m??? Normal >=60 [facility] Comment on above: Order Comment: Suzanne garcia Type: BLOOD SPECIMENOrdering Facility: [facility] Address: [address] [place] [address] Result Comment: Winifred mated Glomerular Filtration Rate [...] actual GFR. Performed By: #### 1 9123-9, 89279-6 ####CERVANTES LABORATORYCLIA [id number] [address] [place] Glucose [Mass/Vol] 115 mg/dL High 74-99 [facility] Comment on above: Order Comment: Suzanne radha Type: BLOOD SPECIMENOrdering Facility: [facility] Address: [address] [place] [address] Result Comment: The [employer] (ADA) provides guidance for cutoff [...] Standards of Medical Care in Diabetes 2016, [employer]. Diabetes Care. 2016.39(Suppl 1). Performed By: #### 1 23-9, ####CERVANTES LABORATORYCLIA [id number] [place] [address] [place] Potassium [Moles/Vol] 4.8 mmol/L Normal 3.7-5.1 [facility] Comment on above: Order Comment: Suzanne garcia Type: BLOOD SPECIMENOrdering Facility: [facility] Address: [address] [place] [address] Performed By: #### 1 239, ####CERVANTES LABORATORYCLIA [id number] [place] [address] [place] Protein [Mass/Vol] 5.6 g/dL Low 6.3-8.0 [facility] Comment on above: Order Comment: Suzanne garcia Type: BLOOD SPECIMENOrdering Facility: [facility] Address: [address] [place] [address] Performed By: #### 1 239, ####CERVANTES LABORATORYCLIA [id number] [place] [id number] [place] Sodium [Moles/Vol] 138 mmol/L Normal 136-144 [facility] Comment on above: Order Comment: Suzanne garcia Type: BLOOD SPECIMENOrdering Facility: [facility] Address: [facility] [place] [address] Performed By: #### 1 239, ####CERVANTES LABORATORYCLIA [id number] [place] [address] [place] Urea nitrogen [Mass/Vol] 16 mg/dL Normal 7-21 [facility] Comment on above: Order Comment: Suzanne garcia Type: BLOOD SPECIMENOrdering Facility: [facility] Address: [facility] [place] [id number] Performed By: #### 1 9123-9, 15788-7 ####METCALF LABORATORYCLIA [id number] [place] [address] [place] Magnesium SerPl-mCncon 09-21 Magnesium [Mass/Vol] 1.9 mg/dL Normal 1.7-2.3 [facility] Comment on above: Order Comment: Speccandelaria garcia Type: BLOOD SPECIMENOrdering Facility: [facility] Address: [address] [place], [place] [address] [address] Performed By: #### 1 9123-9, 54129-9 ####METCALF LABORATORYCLIA [id number] [place] [address] [place] PT panel Coag (PPP)on 2024 INR Coag (PPP) [Relative time] 2.5 {INR} High 0.9-1.3 [facility] Comment on above: Order Comment: Suzanne garcia Type: BLOOD SPECIMENOrdering Facility: [facility] Address: [address] [place] [address] Result Comment: Kaycee min K Antagonist (VKA) Therapeutic Range: INR 2 to 3 (Target INR of 2.5) Note: For patients treated with VKA drugs, such as warfarin, the [employer] 2012 Guideline recommends [...] Performed By: #### 3 4528-0 ####CERVANTES LABORATORYCLIA [id number] [address] [place] PT Coag (PPP) [Time] 25.1 s High 9.7-13.0 [facility] Comment on above: Order Comment: Speci men Type: BLOOD SPECIMENOrdering Facility: [facility] Address: [address] [place] [address] Performed By: #### 3 4528-0 ####CERVANTES LABORATORYCLIA [id number] [address] CBC panel Auto (Bld)on 09-20 Erythrocyte distribution width (RBC) [Ratio] 13.2 % Normal 11.5-15.0 [facility] Comment on above: Order Comment: Speci men Type: BLOOD SPECIMENOrdering Facility: [facility] Address: [address] [place] [address] Performed By: #### 5 8410-2 ####CERVANTES LABORATORYCLIA [id number] [address] Hematocrit (Bld) [Volume fraction] 36.8 % Normal 36.0-46.0 [facility] Comment on above: Order Comment: Speci men Type: BLOOD SPECIMENOrdering Facility: [facility] Address: [address] [place] [address] Performed By: #### 5 8410-2 ####CERVANTES LABORATORYCLIA [id number] [address] [place] Hemoglobin (Bld) [Mass/Vol] 12.4 g/dL Normal 11.5-15.5 [facility] Comment on above: Order Comment: Speci men Type: BLOOD SPECIMENOrdering Facility: [facility] Address: [address] [place] [address] Performed By: #### 5 8410-2 ####CERVANTES LABORATORYCLIA [id number] [address] MCH (RBC) [Entitic mass] 30.8 pg Normal 26.0-34.0 [facility] Comment on above: Order Comment: Speci men Type: BLOOD SPECIMENOrdering Facility: [facility] Address: [address] [place] [address] Performed By: #### 5 8410-2 ####CERVANTES LABORATORYCLIA [id number] [address] MCHC (RBC) [Mass/Vol] 33.7 g/dL Normal 30.5-36.0 [facility] Comment on above: Order Comment: Speci men Type: BLOOD SPECIMENOrdering Facility: [facility] Address: [address] [place] [address] Performed By: #### 5 8410-2 ####CERVANTES LABORATORYCLIA [id number] [address] MCV (RBC) [Entitic vol] 91.5 fL Normal 80.0-100.0 [facility] Comment on above: Order Comment: Speci men Type: BLOOD SPECIMENOrdering Facility: [facility] Address: [address] [place] [address] Performed By: #### 5 8410-2 ####CERVANTES LABORATORYCLIA [id number] [address] Nucleated RBC (Bld) [#/Vol] 10*3/uL Normal <0.01 [facility] Comment on above: Order Comment: Speci men Type: BLOOD SPECIMENOrdering Facility: [facility] Address: [address] [place] [address] Performed By: #### 5 8410-2 ####CERVANTES LABORATORYCLIA [id number] [address] Platelet mean volume (Bld) [Entitic vol] 10.2 fL Normal 9.0-12.7 [facility] Comment on above: Order Comment: Speci men Type: BLOOD SPECIMENOrdering Facility: [facility] Address: [address] [place] [address] Performed By: #### 5 8410-2 ####CERVANTES LABORATORYCLIA [id number] [address] Platelets (Bld) [#/Vol] 175 10*3/uL Normal 150-400 [facility] Comment on above: Order Comment: Speci men Type: BLOOD SPECIMENOrdering Facility: [facility] Address: [address] [place] [address] Performed By: #### 5 8410-2 ####CERVANTES LABORATORYCLIA [id number] [address] RBC (Bld) [#/Vol] 4.02 10*6/uL Normal 3.90-5.20 [facility] Comment on above: Order Comment: Speci men Type: BLOOD SPECIMENOrdering Facility: [facility] Address: [address] [place] [address] Performed By: #### 5 8410-2 ####CERVANTES LABORATORYCLIA [id number] [address] WBC (Bld) [#/Vol] 5.70 10*3/uL Normal 3.70-11.00 [facility] Comment on above: Order Comment: Speci men Type: BLOOD SPECIMENOrdering Facility: [facility] Address: [address] [place] [address] Performed By: #### 5 8410-2 ####CERVANTES LABORATORYCLIA [id number] [address] Comprehensive metabolic 2000 panelon 09-20-2024 Albumin [Mass/Vol] 3.1 g/dL Low 3.9-4.9 [facility] Comment on above: Order Comment: Speci men Type: BLOOD SPECIMENOrdering Facility: [facility] Address: [address] [place] [address] Performed By: #### 2 4323-8, ####CERVANTES LABORATORYCLIA [id number] [address] ALP [Catalytic activity/Vol] 41 U/L Normal 34-123 [facility] Comment on above: Order Comment: Speci men Type: BLOOD SPECIMENOrdering Facility: [facility] Address: [address] [place] [address] Performed By: #### 2 4323-8, ####CERVANTES LABORATORYCLIA [id number] [place] [address] [place] ALT [Catalytic activity/Vol] 7 U/L Normal 7-38 [facility] Comment on above: Order Comment: Speci men Type: BLOOD SPECIMENOrdering Facility: [facility] Address: [address] [place] [address] Performed By: #### 2 4323-8, ####CERVANTES LABORATORYCLIA [id number] [place] [address] [place] Anion gap [Moles/Vol] 7 mmol/L Low 8-15 [facility] Comment on above: Order Comment: Speci men Type: BLOOD SPECIMENOrdering Facility: [facility] Address: [address] [place] [address] Performed By: #### 2 4322-8, ####CERVANTES LABORATORYCLIA [id number] [address] [place] AST [Catalytic activity/Vol] 16 U/L Normal 13-35 [facility] Comment on above: Order Comment: Speci men Type: BLOOD SPECIMENOrdering Facility: [facility] Address: [address] [place] [address] Performed By: #### 2 4322-8, ####CERVANTES LABORATORYCLIA [id number] [place] [address] [place] Bilirubin [Mass/Vol] 0.4 mg/dL Normal 0.2-1.3 [facility] Comment on above: Order Comment: Speci men Type: BLOOD SPECIMENOrdering Facility: [facility] Address: [address] [place] [address] Performed By: #### 2 432-8, ####CERVANTES LABORATORYCLIA [id number] [place] [address] [place] Calcium [Mass/Vol] 8.9 mg/dL Normal 8.5-10.2 [facility] Comment on above: Order Comment: Speci men Type: BLOOD SPECIMENOrdering Facility: [facility] Address: [address] [place] [address] Performed By: #### 2 4322-, ####CERVANTES LABORATORYCLIA [id number] [place] [address] [place] Chloride [Moles/Vol] 102 mmol/L Normal 98-107 [facility] Comment on above: Order Comment: Suzanne garcia Type: BLOOD SPECIMENOrdering Facility: [facility] Address: [address] [place] [address] Performed By: #### 2 4323-8, ####CERVANTES LABORATORYCLIA [id number] [place] [id number] [place] CO2 [Moles/Vol] 29 mmol/L Normal 22-30 [facility] Comment on above: Order Comment: Suzanne garcia Type: BLOOD SPECIMENOrdering Facility: [facility] Address: [address] [place] [address] Performed By: #### 2 4323-8, ####CERVANTES LABORATORYCLIA [id number] [place] [address] [place] Creatinine [Mass/Vol] 0.82 mg/dL Normal 0.58-0.96 [facility] Comment on above: Order Comment: Suzanne garcia Type: BLOOD SPECIMENOrdering Facility: [facility] Address: [address] [place] [address] Performed By: #### 2 4323-8, ####CERVANTES LABORATORYCLIA [id number] [address] Creatinine and Glomerular filtration rate.predicted panel (S/P/Bld) 76 mL/min/1.73m??? Normal >=60 [facility] Comment on above: Order Comment: Suzanne garcia Type: BLOOD SPECIMENOrdering Facility: [facility] Address: [address] [place] [address] Result Comment: Winifred mated Glomerular Filtration Rate [...] actual GFR. Performed By: #### 2 432-8, ####MET[facility]F LABORATORYCLIA [id number] [place] [address] [place] Glucose [Mass/Vol] 134 mg/dL High 74-99 [facility] Comment on above: Order Comment: Suzanne garcia Type: BLOOD SPECIMENOrdering Facility: [facility] Address: [address] [place] [address] Result Comment: The [place] Diabetes [employer] (ADA) provides guidance for cutoff [...] Standards of Medical Care in Diabetes 2016, [place] [employer]. Diabetes Care. 2016.39(Suppl 1). Performed By: #### 2 4328, ####METCALF LABORATORYCLIA [id number] [place] [address] [place] Potassium [Moles/Vol] 4.7 mmol/L Normal 3.7-5.1 [facility] Comment on above: Order Comment: Suzanne garcia Type: BLOOD SPECIMENOrdering Facility: [facility] Address: [address] [place] [address] Performed By: #### 2 43208-27, ####[facility] LABORATORYCLIA [id number] [place] [address] [place] Protein [Mass/Vol] 5.9 g/dL Low 6.3-8.0 [facility] Comment on above: Order Comment: Suzanne garcia Type: BLOOD SPECIMENOrdering Facility: [facility] Address: [address] [place], [place] [address] Performed By: #### 2 4323-8, ####METCALF LABORATORYCLIA [id number] [address] [facility] Sodium [Moles/Vol] 138 mmol/L Normal 136-144 [facility] Comment on above: Order Comment: Suzanne garcia Type: BLOOD SPECIMENOrdering Facility: [facility] Address: [facility] [place] [address] Performed By: #### 2 4323-8, ####[facility] LABORATORYCLIA [id number] [address] STATES [facility] Urea nitrogen [Mass/Vol] 11 mg/dL Normal 7-21 [facility] Comment on above: Order Comment: Suzanne garcia Type: BLOOD SPECIMENOrdering Facility: [facility] Address: [address] [place] [address] Performed By: #### 2 4323-8, ####C[facility]ES LABORATORYCLIA [id number] [address] [place] Magnesium SerPl-mCncon 09-20 Magnesium [Mass/Vol] 1.9 mg/dL Normal 1.7-2.3 [facility] Comment on above: Order Comment: Suzanne garcia Type: BLOOD SPECIMENOrdering Facility: [facility] Address: [address] [place] [address] Performed By: #### 2 4323-8, ####C[facility]ES LABORATORYCLIA [id number] [address] [place] PT panel Coag (PPP)on 2024 INR Coag (PPP) [Relative time] 1.6 {INR} High 0.9-1.3 [facility] Comment on above: Order Comment: Suzanne garcia Type: BLOOD SPECIMENOrdering Facility: [facility] Address: [address] [place] [address] Result Comment: Kaycee min K Antagonist (VKA) Therapeutic Range: INR 2 to 3 (Target INR of 2.5) Note: For patients treated with VKA drugs, such as warfarin, the [employer] 2012 Guideline recommends [...] 70: 252-289 Performed By: #### 3 4528-0 ####METCALF LABORATORYCLIA [id number] [place] [id number] [place] PT Coag (PPP) [Time] 16.7 s High 9.7-13.0 [facility] Comment on above: Order Comment: Speci men Type: BLOOD SPECIMENOrdering Facility: [facility] Address: [address] [place] [address] Performed By: #### 3 4528-0 ####METCALF LABORATORYCLIA [id number] [place] [id number] [place] THERAPY NTon 09-20-2024 THERAPY NT HNO ID: [id number] Author: CHRISTIANO MAYEN OT/L Service: ? Author Type: Occupational Therapist Type: Therapy (PT/OT/Speech/Resp) Filed: 09/20/2024 11:14 Note Text: Summary: OT Evaluation Occupational Therapy Evaluation Summary SERVICE DATE: 09/20/2024 SERVICE TIME: 1031 to 1106 ROOM: [place] [address] OT 6 Clicks Score: 14 DISCHARGE RECOMMENDATIONS [...] is struggling to ambulate. Patient admitted to [facility] with Dx: Decreased activities of daily living (ADL), Fall at home, initial encounter Relevant Past Medical History: DM, edema, depression,asthma, obesity, irsutism, venous insufficiency, oseteomyeliitis of foot, SLE, cerebral palsy, pulmonary embolism, hypothyroidism, insomnai, CAD, migraines, HTN, hysterectomy HOME LIVING Patient Lives With: Facility Care, Spouse, Other: See Comment Comments: LONG-TERM with spouse Assistance Available: 24-Hour Comments: LONG-TERM staff for toileting and shower Entry To Home: No Stairs Number Of Stairs To Bed/Bath: 0 Tub/Shower Type: Accessible WIS with shower chair + grab bars, has assistance/supervision for transfers Laundry: LONG-TERM staff completes Equipment Owned: Lift Chair, Commode- [...] Unsteadiness on feet TREATMENT INTERVENTIONS Evaluation, Self Intermediate Management (65100) Timed Code Treatment (minutes): 17 Skilled Treatment Time (minutes): 32 TRAINING AND EDUCATION PROVIDED Activity Adaptation/Compensatory Strategies, Adaptive Equipment/DME, Bed Mobility, Benefits of In-Hospital Mobility, Cognitive Skills, Command Following, Coping Skills/Resiliency, Discharge Planning, Expected Functional Level, Functional Mobility Involving ADLs, Insight into Deficits, Lower Extremity Dressing, Memory/Attention, Orientation, Positioning, Pain Management, Safety/Judgment, Role of Occupational Therapy, Sitting Balance to Improve [place] with ADLs/Self-Care, Standing Balance to Improve [place] with ADLs/Self-Care, Toileting , Transfer - Sit to Stand THERAPEUTIC SKILLS USED Activity Dosing, Cues for Sequencing/Proper Technique for Activity, Cuing Tactile, Cuing Verbal, Cuing Visual, Facilitation of Joint Range of Motion, Movement Facilitation, Muscle Activation Facilitation, Physical Assist, Teach-Back for Ed (more content not included)... Normal [facility] CBC panel Auto (Bld)on 09-19 Erythrocyte distribution width (RBC) [Ratio] 13.2 % Normal 11.5-15.0 [facility] Comment on above: Order Comment: Speci men Type: BLOOD SPECIMENOrdering Facility: [facility] Address: [address] [place] [address] Performed By: #### 5 8410-2 ####METCALF LABORATORYCLIA [id number] [address] Hematocrit (Bld) [Volume fraction] 33.3 % Low 36.0-46.0 [facility] Comment on above: Order Comment: Speci men Type: BLOOD SPECIMENOrdering Facility: [facility] Address: [address] [place] [address] Performed By: #### 5 8410-2 ####CERVANTES LABORATORYCLIA [id number] [address] OF [facility] Hemoglobin (Bld) [Mass/Vol] 11.0 g/dL Low 11.5-15.5 [facility] Comment on above: Order Comment: Speci men Type: BLOOD SPECIMENOrdering Facility: [facility] Address: [address] [place] [address] Performed By: #### 5 8410-2 ####CERVANTES LABORATORYCLIA [id number] [address] MCH (RBC) [Entitic mass] 30.4 pg Normal 26.0-34.0 [facility] Comment on above: Order Comment: Speci men Type: BLOOD SPECIMENOrdering Facility: [facility] Address: [address] [place] [address] Performed By: #### 5 8410-2 ####CERVANTES LABORATORYCLIA [id number] [address] MCHC (RBC) [Mass/Vol] 33.0 g/dL Normal 30.5-36.0 [facility] Comment on above: Order Comment: Speci men Type: BLOOD SPECIMENOrdering Facility: [facility] Address: [address] [place] [address] Performed By: #### 5 8410-2 ####CERVANTES LABORATORYCLIA [id number] [address] MCV (RBC) [Entitic vol] 92.0 fL Normal 80.0-100.0 [facility] Comment on above: Order Comment: Speci men Type: BLOOD SPECIMENOrdering Facility: [facility] Address: [address] [place] [address] Performed By: #### 5 8410-2 ####CERVANTES LABORATORYCLIA [id number] [place] [address] [place] Nucleated RBC (Bld) [#/Vol] 10*3/uL Normal <0.01 [facility] Comment on above: Order Comment: Speci men Type: BLOOD SPECIMENOrdering Facility: [facility] Address: [address] [place] [address] Performed By: #### 5 8410-2 ####CERVANTES LABORATORYCLIA [id number] [place] [address] [place] Platelet mean volume (Bld) [Entitic vol] 10.2 fL Normal 9.0-12.7 [facility] Comment on above: Order Comment: Speci men Type: BLOOD SPECIMENOrdering Facility: [facility] Address: [address] [place] [address] Performed By: #### 5 8410-2 ####CERVANTES LABORATORYCLIA [id number] [address] [place] Platelets (Bld) [#/Vol] 158 10*3/uL Normal 150-400 [facility] Comment on above: Order Comment: Speci men Type: BLOOD SPECIMENOrdering Facility: [facility] Address: [address] [place] [address] Performed By: #### 5 8410-2 ####CERVANTES LABORATORYCLIA [id number] [address] [place] RBC (Bld) [#/Vol] 3.62 10*6/uL Low 3.90-5.20 [facility] Comment on above: Order Comment: Speci men Type: BLOOD SPECIMENOrdering Facility: [facility] Address: [address] [place] [address] Performed By: #### 5 8410-2 ####CERVANTES LABORATORYCLIA [id number] [address] [place] WBC (Bld) [#/Vol] 7.29 10*3/uL Normal 3.70-11.00 [facility] Comment on above: Order Comment: Speci men Type: BLOOD SPECIMENOrdering Facility: [facility] Address: [address] [place] [address] [place] [address] Performed By: #### 5 8410-2 ####CERVANTES LABORATORYCLIA [id number] [place] [address] [place] Comprehensive metabolic 2000 panelon 09-19-2024 Albumin [Mass/Vol] 2.7 g/dL Low 3.9-4.9 [facility] Comment on above: Order Comment: Speci men Type: BLOOD SPECIMENOrdering Facility: [facility] Address: [address] [place] [address] Performed By: #### 2 4323-8, ####CERVANTES LABORATORYCLIA [id number] [place] [address] [place] ALP [Catalytic activity/Vol] 36 U/L Normal 34-123 [facility] Comment on above: Order Comment: Speci men Type: BLOOD SPECIMENOrdering Facility: [facility] Address: [address] [place] [address] Performed By: #### 2 4323-8, ####CERVANTES LABORATORYCLIA [id number] [place] [address] [place] ALT [Catalytic activity/Vol] 6 U/L Low 7-38 [facility] Comment on above: Order Comment: Speci men Type: BLOOD SPECIMENOrdering Facility: [facility] Address: [address] [place] [address] Performed By: #### 2 4323-8, ####CERVANTES LABORATORYCLIA [id number] [place] [id number] [place] Anion gap [Moles/Vol] 13 mmol/L Normal 8-15 [facility] Comment on above: Order Comment: Speci men Type: BLOOD SPECIMENOrdering Facility: [facility] Address: [address] [place] [id number] Performed By: #### 2 4323-8, ####CERVANTES LABORATORYCLIA [id number] [place] [id number] [place] AST [Catalytic activity/Vol] 19 U/L Normal 13-35 [facility] Comment on above: Order Comment: Speci men Type: BLOOD SPECIMENOrdering Facility: [facility] Address: [address] [facility] [place] [address] Performed By: #### 2 8, ####CERVANTES LABORATORYCLIA [id number] [place] [address] [place] Bilirubin [Mass/Vol] 0.5 mg/dL Normal 0.2-1.3 [facility] Comment on above: Order Comment: Speci men Type: BLOOD SPECIMENOrdering Facility: [facility] Address: [address] [place] [address] Performed By: #### 2 8, ####CERVANTES LABORATORYCLIA [id number] [place] [address] [place] Calcium [Mass/Vol] 8.6 mg/dL Normal 8.5-10.2 [facility] Comment on above: Order Comment: Speci men Type: BLOOD SPECIMENOrdering Facility: [facility] Address: [address] [place] [address] Performed By: #### 2 4323-01, ####CERVANTES LABORATORYCLIA [id number] [place] [address] [place] Chloride [Moles/Vol] 103 mmol/L Normal 98-107 [facility] Comment on above: Order Comment: Speci men Type: BLOOD SPECIMENOrdering Facility: [facility] Address: [address] [place] [address] Performed By: #### 2 4323-01, ####CERVANTES LABORATORYCLIA [id number] [place] [address] [place] CO2 [Moles/Vol] 24 mmol/L Normal 22-30 [facility] Comment on above: Order Comment: Speci men Type: BLOOD SPECIMENOrdering Facility: [facility] Address: [address] [place] [address] [place] [address] Performed By: #### 2 4328, ####CERVANTES LABORATORYCLIA [id number] [place] [address] [place] Creatinine [Mass/Vol] 0.76 mg/dL Normal 0.58-0.96 [facility] Comment on above: Order Comment: Naeemcandelaria garcia Type: BLOOD SPECIMENOrdering Facility: [facility] Address: [address] [place] [id number] Performed By: #### 2 4323-8, ####CERVANTES LABORATORYCLIA [id number] [place] [id number] [place] Creatinine and Glomerular filtration rate.predicted panel (S/P/Bld) 83 mL/min/1.73m??? Normal >=60 [facility] Comment on above: Order Comment: Suzanne garcia Type: BLOOD SPECIMENOrdering Facility: [facility] Address: [address] [place] [address] Result Comment: Winifred mated Glomerular Filtration Rate [...] Performed By: #### 2 4323-8, ####CERVANTES LABORATORYCLIA [id number] [place] [id number] [place] Glucose [Mass/Vol] 106 mg/dL High 74-99 [facility] Comment on above: Order Comment: Suzanne radha Type: BLOOD SPECIMENOrdering Facility: [facility] Address: [address] [place] [address] Result Comment: The [place] [employer] (ADA) provides guidance for cutoff [...] Standards of Medical Care in Diabetes 2016, [place] [employer]. Diabetes Care. 2016.39(Suppl 1). Performed By: #### 2 432-8, ####CERVANTES LABORATORYCLIA [id number] [place] [address] [place] Potassium [Moles/Vol] 4.7 mmol/L Normal 3.7-5.1 [facility] Comment on above: Order Comment: Speci men Type: BLOOD SPECIMENOrdering Facility: [facility] Address: [address] [place] [address] Performed By: #### 2 4328, ####CERVANTES LABORATORYCLIA [id number] [place] [address] [place] Protein [Mass/Vol] 5.3 g/dL Low 6.3-8.0 [facility] Comment on above: Order Comment: Speci men Type: BLOOD SPECIMENOrdering Facility: [facility] Address: [address] [place] [address] Performed By: #### 2 4323-01, ####CERVANTES LABORATORYCLIA [id number] [place] [address] [place] Sodium [Moles/Vol] 140 mmol/L Normal 136-144 [facility] Comment on above: Order Comment: Speci men Type: BLOOD SPECIMENOrdering Facility: [facility] Address: [address] [place] [address] Performed By: #### 2 8, ####CERVANTES LABORATORYCLIA [id number] [place] [address] [place] Urea nitrogen [Mass/Vol] 10 mg/dL Normal 7-21 [facility] Comment on above: Order Comment: Speci men Type: BLOOD SPECIMENOrdering Facility: [facility] Address: [address] [place] [address] Performed By: #### 2 4328, ####CERVANTES LABORATORYCLIA [id number] [place] [id number] [place] HISTORY PHYSICALon 5 HISTORY PHYSICAL HNO ID: [id number] Author: ARNOL LIN PA-C Service: Hospital Medicine Author Type: Physician Saddle Stitcher Type: H&P Filed: 09/19/2024 01:01 Note Text: Attestation signed by Mable Barker DO at 09/27/2024 10:43 PM Attending Note I have not personally performed a face to face assessment of the patient. I have reviewed the [facility] note. Signature: Mable Barker Date: 09/27/2024 Time: 10:43 PM [facility] MEDICINE HISTORY AND PHYSICAL EXAM SERVICE DATE: 09/19/2024 SERVICE TIME: 12:25 AM Primary Care Physician: Raf Casey MD, MD NIGHT AND WEEKEND COVERAGE: [facility] COVERAGE: Days: [phone], please page attending physician. Nights: [phone], please page [facility] pager [phone]. Subjective CHIEF COMPLAINT: Fall, left knee pain [...] me that her left leg and knee twisted on her way to the ground and [...] changes, peripheral edema, paresthesia or focal weaknesses. [facility] Course: HDS, afebrile. Labs unremarkable. Imaging [...] embolism (HCC) 2011 SLE (systemic lupus erythematosus) ([facility]) Type II or unspecified type diabetes mellitus [...] daily. HYDROcodone-loyda (more content not included)... Normal [facility] Magnesium SerPl-mCncon 09-19 Magnesium [Mass/Vol] 1.8 mg/dL Normal 1.7-2.3 [facility] Comment on above: Order Comment: Speci men Type: BLOOD SPECIMENOrdering Facility: [facility] Address: [address] [place] [address] Performed By: #### 2 4323-8, 91932-0 ####METCALF LABORATORYCLIA [id number] [address] NUTRITIONon 09-19-2024 NUTRITION HNO ID: [id number] Author: DEVYN KAHN RD Service: Nutrition Therapy [...] Greater than 75% estimated energy needs (Drinks Lincoln Instant Breakfast and either Premier or Melton [...] to trial Ensure Max. Pt to order [place] Instant Breakfast. Diet Orders (From admission, onward) Start Ordered 09/19/24 1315 DIET SUPPLEMENTS NOW Question Answer Comment Supplement 1 ENSURE MAX CHOCOLATE Supplement 1 Frequency PM SNACK 09/19/24 1312 09/19/24 0215 Diet Regular START NOW 09/19/24 0212 Anthropometrics: Height: 157.5 cm (5' 2) Weight: 99 kg (218 lb 4.1 oz) Usual Weight: 105.2 kg (232 lb) 08/27/23 Weight Change: Not clinically significant weight loss Lines, Drains, and Airways Drain Duration External Collection Device 09/18/24 2332 [facility] <1 day MNT Billing: $ Initial Assessment: 1-15 minutes SIGNATURE: Devyn Kahn RD PATIENT NAME: Randolph Hunter DATE: September 19, 2024 TIME: 1:12 PM Normal [facility] PT panel Coag (PPP)on 2024 INR Coag (PPP) [Relative time] 1.7 {INR} High 0.9-1.3 [facility] Comment on above: Order Comment: Speci men Type: BLOOD SPECIMENOrdering Facility: [facility] Address: [address] [place] [address] Result Comment: Kaycee min K Antagonist (VKA) Therapeutic Range: INR 2 to 3 (Target INR of 2.5) Note: For patients treated with VKA drugs, such as warfarin, the [employer] 2012 Guideline recommends [...] 70: 252-289 Performed By: #### 3 4528-0 ####METCALF LABORATORYCLIA [id number] [place] [address] [place] PT Coag (PPP) [Time] 17.9 s High 9.7-13.0 [facility] Comment on above: Order Comment: Speci men Type: BLOOD SPECIMENOrdering Facility: [facility] Address: [facility] [place] [address] Performed By: #### 3 4528-0 ####METCAL[facility] LABORATORYCLIA [id number] [place] [id number] [facility] [place] THERAPY NTon 09-19-2024 THERAPY NT HNO ID: [id number] Author: ESTELLE CAGE PT Service: Physical Therapy Author Type: Physical Therapist Type: Therapy (PT/OT/Speech/Resp) Filed: 09/19/2024 17:41 Note Text: Summary: PT evaluation Physical Therapy Evaluation Summary SERVICE DATE: 09/19/2024 SERVICE TIME: 1545 to 1629 ROOM: [place] [address] PT 6 Clicks Score: 12 DISCHARGE RECOMMENDATIONS [...] time. Leg Injury . Patient admitted to [facility] with Dx: Decreased activities of daily living (ADL), Fall at home, initial encounter Relevant Past Medical History: DM, edema, depression,asthma, obesity, irsutism, venous insufficiency, oseteomyeliitis of foot, SLE, cerebral palsy, pulmonary embolism, hypothyroidism, insomnai, CAD, migraines, HTN, hysterectomy HOME LIVING Patient Lives With: Spouse Assistance Available: 24-Hour, Other: See Comment Comments: LONG-TERM staff for toileting and shower Entry To [...] Reduced mobility-other TREATMENT INTERVENTIONS Evaluation, Therapeutic Activity (12436) Timed Code Treatment (minutes): 25 Skilled Treatment Time (minutes): 44 $ Evaluation-Low (33232) Billed Units: 1 unit Therapeutic Activity (08691) Treatment Minutes: 25 $ Therapeutic Activity (99150) Billed Units: 2 units Range of Motion: [...] Sit to Supi (more content not included)... [facility] THERAPY NT HNO ID: [id number] Author: ESTELLE CAGE PT Service: Physical Therapy Author Type: Physical Therapist Type: Therapy (PT/OT/Speech/Resp) Filed: 09/19/2024 11:07 Note Text: Summary: PT missed visit PHYSICAL THERAPY MISSED VISIT SERVICE DATE: 09/19/2024 SERVICE TIME: 1105 ROOM: [place] [address] Patient not seen due to Patient Not Available. Discussed patient with RN and patient in the process of transferring to . Will approach as patient is available/appropriate. SIGNATURE: Estelle Cage PT PATIENT NAME: Randolph Hunter DATE: September 19, 2024 TIME: 11:06 AM Normal [facility] URINALYSIS, REFLEX MICROSCOP ICon 09-19-2024 Bilirubin Ql (U) Negative Normal Negative [facility] Comment on above: Order Comment: Speci men Type: URINE SPECIMENOrdering Facility: [facility] Address: [address] [place] [address] Performed By: #### L [id number] ####[facility] LABORATORYCLIA [id number] [address] Clarity (Unsp spec) Clear Normal Clear [facility] Comment on above: Order Comment: Speci men Type: URINE SPECIMENOrdering Facility: [facility] Address: [address] [place] [address] Performed By: #### L [id number] ####[facility] LABORATORYCLIA [id number] [address] OF [facility] Color (U) Yellow Normal Yellow [facility] Comment on above: Order Comment: Speci men Type: URINE SPECIMENOrdering Facility: [facility] Address: [address] [place] [address] Performed By: #### L [id number] ####C[facility] LABORATORYCLIA [id number] [address] Glucose Test strip (U) [Mass/Vol] Negative Normal Negative [facility] Comment on above: Order Comment: Speci men Type: URINE SPECIMENOrdering Facility: [facility] Address: [address] [place] [address] Performed By: #### L [id number] ####[facility] LABORATORYCLIA [id number] [address] Hemoglobin Ql (U) Negative Normal Negative [facility] Comment on above: Order Comment: Speci men Type: URINE SPECIMENOrdering Facility: [facility] Address: [address] [place] [address] Performed By: #### L [id number] ####C[facility] LABORATORYCLIA [id number] [place] [address] [place] Ketones Ql (U) Negative Normal Negative [facility] Comment on above: Order Comment: Speci men Type: URINE SPECIMENOrdering Facility: [facility] Address: [address] [place] [address] Performed By: #### L [id number] ####[facility] LABORATORYCLIA [id number] [address] Leukocyte esterase Test strip Ql (U) Negative Normal Negative [facility] Comment on above: Order Comment: Speci men Type: URINE SPECIMENOrdering Facility: [facility] Address: [address] [place] [address] Performed By: #### L [id number] ####[facility] LABORATORYCLIA [id number] [address] [place] Nitrite Ql (U) Negative Normal Negative [facility] Comment on above: Order Comment: Speci men Type: URINE SPECIMENOrdering Facility: [facility] Address: [address] [place] [address] Performed By: #### L [id number] ####[facility] LABORATORYCLIA [id number] [place] [address] [place] pH (U) 7.0 [pH] Normal 5.0-8.0 [facility] Comment on above: Order Comment: Speci men Type: URINE SPECIMENOrdering Facility: [facility] Address: [address] [place] [address] Performed By: #### L [id number] ####[facility] LABORATORYCLIA [id number] [place] [address] [place] Protein (U) [Mass/Vol] Negative Normal Negative [facility] Comment on above: Order Comment: Speci men Type: URINE SPECIMENOrdering Facility: [facility] Address: [address] [place] [address] Performed By: #### L [id number] ####[facility] LABORATORYCLIA [id number] [place] [address] [place] Specific gravity (U) [Rel density] 1.010 Normal 1.005-1.03 0 [facility] Comment on above: Order Comment: Speci men Type: URINE SPECIMENOrdering Facility: [facility] Address: [address] [place] [address] Performed By: #### L [id number] ####CERVANTES LABORATORYCLIA [id number] [address] Urobilinogen Ql (U) 0.2 EU/dL Normal 0.2-1.0 EU/dL [facility] Comment on above: Order Comment: Speci men Type: URINE SPECIMENOrdering Facility: [facility] Address: [address] [place] [address] Performed By: #### L [id number] ####CERVANTES LABORATORYCLIA [id number] [place] [id number] [facility] ALLIED HEALTHon 09-18-2024 ALLIED HEALTH HNO ID: [id number] Author: OSVALDO BRUCE RT(R) Service: Radiology Author Type: Head Porter Type: Allied Health Filed: 09/18/2024 23:10 Note [...] PATIENT PRESENTS WITH AN IMPLANTABLE OR ATTACHED WINDOW COVERING SALES CONSULTANT: No RADIOLOGY DEPARTMENT: General X-ray: Exam(s) Completed: Pelvis X-Ray: Pelvis with Hip Left Lower Extremity X-Ray(s): Ankle, Left PERIPHERAL IV DATA: Not applicable SIGNED BY: RT Lissett(R) September 18, 2024 11:[address] [facility] HEALTH HNO ID: [id number] Author: MONTSERRAT CUEAVS RT(R) Service: Radiology Author Type: Technologist Type: [...] PATIENT PRESENTS WITH AN IMPLANTABLE OR ATTACHED WINDOW COVERING SALES CONSULTANT: No RADIOLOGY DEPARTMENT: General X-ray: Exam(s) Completed: Lower Extremity X-Ray(s): Knee, AP / LAT Left PERIPHERAL IV DATA: Not applicable SIGNED BY: RT Geeta(R) September 18, 2024 10:31 AM Normal [facility] CBC W Auto Differential pane l (Bld)on 09-18-2024 Basophils (Bld) [#/Vol] 10*3/uL Normal <0.11 [facility] Comment on above: Order Comment: Speci men Type: BLOOD SPECIMENOrdering Facility: [facility] Address: [address] [place] [address] Performed By: #### 5 7021-8 ####METCALF LABORATORYCLIA [id number] [place] [address] [place] Basophils/100 WBC (Bld) 0.3 % Normal [facility] Comment on above: Order Comment: Speci men Type: BLOOD SPECIMENOrdering Facility: [facility] Address: [address] [place] [address] Performed By: #### 5 7021-8 ####CERVANTES LABORATORYCLIA [id number] [place] [address] [place] Differential cell count method Nom (Bld) Auto Normal [facility] Comment on above: Order Comment: Speci men Type: BLOOD SPECIMENOrdering Facility: [facility] Address: [address] [place] [address] Performed By: #### 5 7021-8 ####CERVANTES LABORATORYCLIA [id number] [place] [address] [place] Eosinophils (Bld) [#/Vol] 0.16 10*3/uL Normal <0.46 [facility] Comment on above: Order Comment: Speci men Type: BLOOD SPECIMENOrdering Facility: [facility] Address: [address] [place] [address] Performed By: #### 5 7021-8 ####CERVANTES LABORATORYCLIA [id number] [address] [place] Eosinophils/100 WBC (Bld) 2.1 % Normal [facility] Comment on above: Order Comment: Speci men Type: BLOOD SPECIMENOrdering Facility: [facility] Address: [address] [place] [address] Performed By: #### 5 7021-8 ####CERVANTES LABORATORYCLIA [id number] [address] [place] Erythrocyte distribution width (RBC) [Ratio] 13.3 % Normal 11.5-15.0 [facility] Comment on above: Order Comment: Speci men Type: BLOOD SPECIMENOrdering Facility: [facility] Address: [address] [place] [address] Performed By: #### 5 7021-8 ####CERVANTES LABORATORYCLIA [id number] [address] [place] Hematocrit (Bld) [Volume fraction] 37.2 % Normal 36.0-46.0 [facility] Comment on above: Order Comment: Speci men Type: BLOOD SPECIMENOrdering Facility: [facility] Address: [address] [place] [address] Performed By: #### 5 7021-8 ####CERVANTES LABORATORYCLIA [id number] [address] [place] Hemoglobin (Bld) [Mass/Vol] 12.6 g/dL Normal 11.5-15.5 [facility] Comment on above: Order Comment: Speci men Type: BLOOD SPECIMENOrdering Facility: [facility] Address: [address] [place] [address] Performed By: #### 5 7021-8 ####CERVANTES LABORATORYCLIA [id number] [place] [address] [place] Immature granulocytes (Bld) [#/Vol] 10*3/uL Normal <0.10 [facility] Comment on above: Order Comment: Speci men Type: BLOOD SPECIMENOrdering Facility: [facility] Address: [address] [place] [address] Performed By: #### 5 7021-8 ####CERVANTES LABORATORYCLIA [id number] [address] STATES [facility] Immature granulocytes/100 WBC (Bld) 0.3 % Normal [facility] Comment on above: Order Comment: Speci men Type: BLOOD SPECIMENOrdering Facility: [facility] Address: [address] [place] [address] Performed By: #### 5 7021-8 ####CERVANTES LABORATORYCLIA [id number] [place] [address] [place] Lymphocytes (Bld) [#/Vol] 1.71 10*3/uL Normal 1.00-4.00 [facility] Comment on above: Order Comment: Speci men Type: BLOOD SPECIMENOrdering Facility: [facility] Address: [address] [place] [address] Performed By: #### 5 7021-8 ####CERVANTES LABORATORYCLIA [id number] [address] Lymphocytes/100 WBC (Bld) 22.4 % Normal [facility] Comment on above: Order Comment: Speci men Type: BLOOD SPECIMENOrdering Facility: [facility] Address: [address] [place] [address] Performed By: #### 5 7021-8 ####CERVANTES LABORATORYCLIA [id number] [place] [address] [place] MCH (RBC) [Entitic mass] 30.8 pg Normal 26.0-34.0 [facility] Comment on above: Order Comment: Speci men Type: BLOOD SPECIMENOrdering Facility: [facility] Address: [address] [place] [address] Performed By: #### 5 7021-8 ####CERVANTES LABORATORYCLIA [id number] [place] [id number] [place] MCHC (RBC) [Mass/Vol] 33.9 g/dL Normal 30.5-36.0 [facility] Comment on above: Order Comment: Speci men Type: BLOOD SPECIMENOrdering Facility: [facility] Address: [address] [place] [address] Performed By: #### 5 7021-8 ####CERVANTES LABORATORYCLIA [id number] [address] [place] MCV (RBC) [Entitic vol] 91.0 fL Normal 80.0-100.0 [facility] Comment on above: Order Comment: Speci men Type: BLOOD SPECIMENOrdering Facility: [facility] Address: [address] [place] [address] Performed By: #### 5 7021-8 ####CERVANTES LABORATORYCLIA [id number] [address] [place] Monocytes (Bld) [#/Vol] 0.54 10*3/uL Normal <0.87 [facility] Comment on above: Order Comment: Speci men Type: BLOOD SPECIMENOrdering Facility: [facility] Address: [address] [place] [address] Performed By: #### 5 7021-8 ####CERVANTES LABORATORYCLIA [id number] [address] Monocytes/100 WBC (Bld) 7.1 % Normal [facility] Comment on above: Order Comment: Speci men Type: BLOOD SPECIMENOrdering Facility: [facility] Address: [address] [place] [address] Performed By: #### 5 7021-8 ####CERVANTES LABORATORYCLIA [id number] [address] [place] Neutrophils (Bld) [#/Vol] 5.18 10*3/uL Normal 1.45-7.50 [facility] Comment on above: Order Comment: Speci men Type: BLOOD SPECIMENOrdering Facility: [facility] Address: [address] [place] [address] Performed By: #### 5 7021-8 ####CERVANTES LABORATORYCLIA [id number] [address] Neutrophils/100 WBC (Bld) 67.8 % Normal [facility] Comment on above: Order Comment: Speci men Type: BLOOD SPECIMENOrdering Facility: [facility] Address: [address] [place] [address] Performed By: #### 5 7021-8 ####CERVANTES LABORATORYCLIA [id number] [place] [address] [place] Nucleated RBC (Bld) [#/Vol] 10*3/uL Normal <0.01 [facility] Comment on above: Order Comment: Speci men Type: BLOOD SPECIMENOrdering Facility: [facility] Address: [address] [place] [address] Performed By: #### 5 7021-8 ####CERVANTES LABORATORYCLIA [id number] [address] Nucleated RBC/100 WBC (Bld) [Ratio] 0.0 /100 WBC Normal [facility] Comment on above: Order Comment: Speci men Type: BLOOD SPECIMENOrdering Facility: [facility] Address: [address] [place] [address] Performed By: #### 5 7021-8 ####CERVANTES LABORATORYCLIA [id number] [address] [place] Platelet mean volume (Bld) [Entitic vol] 10.0 fL Normal 9.0-12.7 [facility] Comment on above: Order Comment: Speci men Type: BLOOD SPECIMENOrdering Facility: [facility] Address: [address] [place] [address] Performed By: #### 5 7021-8 ####CERVANTES LABORATORYCLIA [id number] [address] [place] Platelets (Bld) [#/Vol] 176 10*3/uL Normal 150-400 [facility] Comment on above: Order Comment: Speci men Type: BLOOD SPECIMENOrdering Facility: [facility] Address: [address] [place], [place] [address] [id number] Performed By: #### 5 7021-8 ####CERVANTES LABORATORYCLIA [id number] [address] [place] RBC (Bld) [#/Vol] 4.09 10*6/uL Normal 3.90-5.20 [facility] Comment on above: Order Comment: Speci men Type: BLOOD SPECIMENOrdering Facility: [facility] Address: [address] [place] [address] [place] [address] Performed By: #### 5 7021-8 ####CERVANTES LABORATORYCLIA [id number] [place] [address] [place] WBC (Bld) [#/Vol] 7.63 10*3/uL Normal 3.70-11.00 [facility] Comment on above: Order Comment: Speci men Type: BLOOD SPECIMENOrdering Facility: [facility] Address: [address] [place] [address] [place] [address] Performed By: #### 5 7021-8 ####CERVANTES LABORATORYCLIA [id number] [address] CNPNon 09-18-2024 CNPN Telephone (ORMDNA) RANDOLPH HUNTER ([id number]) 1950 F Date Time Provider Department 09/18/24 [facility] CASEY ORDIANA During your visit today, we recorded the following information about you: Kevin Jain 09/18/2024 11:34 AM Signed Patient seen in [facility] on 09/18/2024 in regards to left knee pain Dr. Soares is the provider stationary engineer refrigeration Would or another provider be willing to see patient in regards to their injury? Patient can be reached at [phone] Thank You! Allergies As of Date: 09/18/2024 [...] Change PENICILLINS 03/04/2011 4 - Hives Comments: Dioxicillin PROMETHAZINE 05/26/2019 16 - Unknown MXDILMU-PCL-FEM REDUCTASE INHIBIT*07/08/2018 17 - Myalgia DELETED: CHEESE 03/09/2022 6 - Diarrhea 8 - GI Upset Comments: Parmesan cheese and turkmen cheese, per patient Date Reviewed: 09/18/2024 Reviewed [...] SAFETY SYRINGE) 1 mL 25 gauge x 5/8 Use as directed once a month. - blood sugar diagnostic (Lion BiotechnologiesTOUCH VERIO TEST STRIPS) test strip Test blood sugar(s) 3 times daily. Dx: Other DM Code E11.42 Insulin: Yes - ketoconazole (NIZORAL) 2 % cream Apply 1 application to affected area once daily. - Syringe with Needle, Safety 3 mL 23 gauge x 1 1 Each as directed. Use one each [...] (more content not included)... Normal [facility] CT KNEE WO IVCON LTon 2024 CT KNEE WO IVCON LT * * *Final Report* * * DATE OF EXAM: Sep 18 2024 10:31PM [facility] 0083 - CT KNEE WO IVCON LT [...] Small joint effusion. * Tricompartmental degenerative changes. 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PSCB Transcribe Date/Time: Sep 18 2024 11:34P Dictated by : STEPHANE GRIMES MD This examination was interpreted and the report reviewed and electronically signed by: STEPHANE GRIMES MD on Sep 18 2024 11:37PM EST [id number] Normal [facility] Comprehensive metabolic 2000 panelon 09-18-2024 Albumin [Mass/Vol] 3.2 g/dL Low 3.9-4.9 [facility] Comment on above: Order Comment: Speci men Type: BLOOD SPECIMENOrdering Facility: [facility] Address: [address] [place] [id number] Performed By: #### 2 4323-8 ####CERVANTES LABORATORYCLIA [id number] [address] ALP [Catalytic activity/Vol] 42 U/L Normal 34-123 [facility] Comment on above: Order Comment: Speci men Type: BLOOD SPECIMENOrdering Facility: [facility] Address: [address] [place] [address] Performed By: #### 2 4323-8 ####CERVANTES LABORATORYCLIA [id number] [address] [place] ALT [Catalytic activity/Vol] 8 U/L Normal 7-38 [facility] Comment on above: Order Comment: Speci men Type: BLOOD SPECIMENOrdering Facility: [facility] Address: [address] [place] [address] Performed By: #### 2 4323-8 ####CERVANTES LABORATORYCLIA [id number] [place] [address] [place] Anion gap [Moles/Vol] 10 mmol/L Normal 8-15 [facility] Comment on above: Order Comment: Speci men Type: BLOOD SPECIMENOrdering Facility: [facility] Address: [address] [place] [address] Performed By: #### 2 4323-8 ####CERVANTES LABORATORYCLIA [id number] [address] AST [Catalytic activity/Vol] 19 U/L Normal 13-35 [facility] Comment on above: Order Comment: Speci men Type: BLOOD SPECIMENOrdering Facility: [facility] Address: [address] [place], [place] [address] Performed By: #### 2 4323-8 ####CERVANTES LABORATORYCLIA [id number] [address] [place] Bilirubin [Mass/Vol] 0.5 mg/dL Normal 0.2-1.3 [facility] Comment on above: Order Comment: Speci men Type: BLOOD SPECIMENOrdering Facility: [facility] Address: [address] [place] [address] Performed By: #### 2 4323-8 ####CERVANTES LABORATORYCLIA [id number] [place] [address] [place] Calcium [Mass/Vol] 9.1 mg/dL Normal 8.5-10.2 [facility] Comment on above: Order Comment: Speci men Type: BLOOD SPECIMENOrdering Facility: [facility] Address: [address] [place] [address] Performed By: #### 2 4323-8 ####CERVANTES LABORATORYCLIA [id number] [place] [address] [place] Chloride [Moles/Vol] 98 mmol/L Normal 98-107 [facility] Comment on above: Order Comment: Speci men Type: BLOOD SPECIMENOrdering Facility: [facility] Address: [address] [place] [address] Performed By: #### 2 4323-8 ####CERVANTES LABORATORYCLIA [id number] [place] [address] [place] CO2 [Moles/Vol] 28 mmol/L Normal 22-30 [facility] Comment on above: Order Comment: Speci men Type: BLOOD SPECIMENOrdering Facility: [facility] Address: [address] [place] [address] Performed By: #### 2 4323-8 ####CERVANTES LABORATORYCLIA [id number] [address] [place] Creatinine [Mass/Vol] 0.80 mg/dL Normal 0.58-0.96 [facility] Comment on above: Order Comment: Speci men Type: BLOOD SPECIMENOrdering Facility: [facility] Address: [address] [place] [address] Performed By: #### 2 4323-8 ####CERVANTES LABORATORYCLIA [id number] [address] Creatinine and Glomerular filtration rate.predicted panel (S/P/Bld) 78 mL/min/1.73m??? Normal >=60 [facility] Comment on above: Order Comment: Speci men Type: BLOOD SPECIMENOrdering Facility: [facility] Address: [address] [place] [address] Result Comment: Winifred mated Glomerular Filtration Rate [...] actual GFR. Performed By: #### 2 4323-8 ####METCALF LABORATORYCLIA [id number] [place] [id number] [place] Glucose [Mass/Vol] 121 mg/dL High 74-99 [facility] Comment on above: Order Comment: Suzanne men Type: BLOOD SPECIMENOrdering Facility: [facility] Address: [address] [place] [address] Result Comment: The [place] Diabetes Association (ADA) provides guidance for cutoff [...] Standards of Medical Care in Diabetes 2016, [place] Diabetes Association. Diabetes Care. 2016.39(Suppl 1). Performed By: #### 2 4323-8 ####METCALF LABORATORYCLIA [id number] [place] [address] [place] Potassium [Moles/Vol] 4.3 mmol/L Normal 3.7-5.1 [facility] Comment on above: Order Comment: Suzanne men Type: BLOOD SPECIMENOrdering Facility: [facility] Address: [address] [place] [id number] Performed By: #### 2 4323-8 ####METCALF LABORATORYCLIA [id number] [place] [address] [place] Protein [Mass/Vol] 6.4 g/dL Normal 6.3-8.0 [facility] Comment on above: Order Comment: Speci men Type: BLOOD SPECIMENOrdering Facility: [facility] Address: [address] [place] [address] Performed By: #### 2 4323-8 ####CERVANTES LABORATORYCLIA [id number] [address] [place] Sodium [Moles/Vol] 136 mmol/L Normal 136-144 [facility] Comment on above: Order Comment: Speci men Type: BLOOD SPECIMENOrdering Facility: [facility] Address: [address] [place] [address] Performed By: #### 2 4323-8 ####CERVANTES LABORATORYCLIA [id number] [address] Urea nitrogen [Mass/Vol] 10 mg/dL Normal 7-21 [facility] Comment on above: Order Comment: Speci men Type: BLOOD SPECIMENOrdering Facility: [facility] Address: [address] [place] [address] Performed By: #### 2 4323-8 ####CERVANTES LABORATORYCLIA [id number] [address] ED NOTEon 09-18-2024 ED NOTE HNO ID: [id number] Author: MONE KING RN Service: ? Author Type: Registered Nurse Type: ED Notes Filed: 09/18/2024 22:14 Note Text: Pt report given to Zaria BARROSO) [facility] ED NOTE HNO ID: [id number] Author: MONE KING RN Service: ? Author Type: Registered Nurse Type: ED Notes Filed: 09/18/2024 22:15 Note Text: IV attempted by this RN. Medic requested to bedside for ultrasound. [facility] ED NOTE HNO ID: [id number] Author: LIANNE FERNANDEZ, NAWAF Service: ? Author Type: Registered Nurse Type: ED Notes Filed: 09/18/2024 20:22 Note Text: Bed: ED-15 Expected date: Expected time: Means of arrival: Comments: eric [facility] ED NOTE HNO ID: [id number] Author: LIANNE FERNANDEZ, NAWAF Service: ? Author Type: Registered Nurse Type: ED Notes Filed: 09/18/2024 13:36 Note Text: Discharge instructions reviewed with patient via teachback. Pt verbalizes understanding. Pt awake and alert, respirations regular and unlabored. No further questions for this RN. Report given to [facility] ED NOTE HNO ID: [id number] Author: ZARIA ZAPATA RN Service: ? Author Type: Registered Nurse Type: ED Notes Filed: 09/18/2024 10:15 Note Text: Bed: ED-01 Expected date: Expected time: Means of arrival: [place] [facility] Comments: [facility] ED PROV NOTEon 09-18-2024 ED PROV NOTE HNO ID: [id number] Author: KRISTI POND DO Service: Emergency Medicine [...] Status Change Penicillins Hives Dioxicillin Promethazine Intolerance Cbexdjv-Zit-Rre Red* Myalgia Cheese Diarrhea, GI Upset Parmesan cheese and turkmen cheese, per patient Review of Systems Constitutional: [...] Left lower (more content not included)... Normal [facility] ED PROV NOTE HNO ID: [id number] Author: CLINTON GRAJEDA PA-C Service: ? Author Type: Physician Saddle Stitcher Type: ED Provider Notes Filed: 09/18/2024 11:31 [...] Status Change Penicillins Hives Dioxicillin Promethazine Unknown Xvosfnk-Qqd-Rif Red* Myalgia Cheese Diarrhea, GI Upset Parmesan cheese and turkmen cheese, per patient Review of Systems Constitutional: [...] prior sen (more content not included)... Normal [facility] PT panel Coag (PPP)on 2024 INR Coag (PPP) [Relative time] 2.3 {INR} High 0.9-1.3 [facility] Comment on above: Order Comment: Speci men Type: BLOOD SPECIMENOrdering Facility: [facility] Address: [address] [place] [address] Result Comment: Kaycee min K Antagonist (VKA) Therapeutic Range: INR 2 to 3 (Target INR of 2.5) Note: For patients treated with VKA drugs, such as warfarin, the [employer] 2012 Guideline recommends [...] 70: 252-289 Performed By: #### 3 4528-0 ####METCALF LABORATORYCLIA [id number] [place] [address] [place] PT Coag (PPP) [Time] 23.8 s High 9.7-13.0 [facility] Comment on above: Order Comment: Speci men Type: BLOOD SPECIMENOrdering Facility: [facility] Address: [address] [place] [address] Performed By: #### 3 4528-0 ####METCALF LABORATORYCLIA [id number] [place] [id number] [place] XR ANKLE 3V AP/LAT/OBL [...] tissue swelling of the left lower extremity. 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PSCB Transcribe Date/Time: Sep 18 2024 11:41P Dictated by : STEPHANE GRIMES MD This examination was interpreted and the report reviewed and electronically signed by: STEPHANE GRIMES MD on Sep 18 2024 11:44PM EST [id number] [facility] XR HIP 3V PELV+ AP/LAT LTon [...] tissue swelling of the left lower extremity. 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PSCB Transcribe Date/Time: Sep 18 2024 11:41P Dictated by : STEPHANE GRIMES MD This examination was interpreted and the report reviewed and electronically signed by: STEPHANE GRIMES MD on Sep 18 2024 11:44PM EST [id number] [facility] XR KNEE 4V AP/LAT/OBLS LTon 09-18-2024 [...] effusion. Vascular calcifications. IMPRESSION: No acute abnormality 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PSCB Transcribe Date/Time: Sep 18 2024 10:47A Dictated by : WILBERT WALKER MD This examination was interpreted and the report reviewed and electronically signed by: WILBERT WALKER MD on Sep 18 2024 10:48AM EST [id number] [facility] 08-05-2024 [facility] Office Visit (PSYLWM ) RANDOLPH HUNTER ([id number]) 1950 F Date Time Provider Department 08/05/24 11:00 AM GILMER COTTON PSYLWM During your visit today, we recorded the following information about you: Gilmer Cotton, PhD 08/05/2024 12:29 PM Signed [facility] Progress Note Randolph Hunter 08/05/2024 [id number] PROVIDER: Gilmer Cotton, PhD CPT Code: Time: [...] SAFETY SYRINGE) 1 mL 25 gauge x 5/8 Use as directed once a month. blood sugar diagnostic (Tabulous CloudUCH VERIO TEST STRIPS) test strip Test blood sugar(s) 3 times daily. Dx: Other DM Code E11.42 Insulin: Yes ketoconazole (NIZORAL) 2 % cream Apply 1 application to affected area once daily. Syringe with Needle, Safety 3 mL 23 gauge x 1 1 Each as directed. Use one each [...] Psychiatric Medication Issues: see med record DIAGNOSIS: [place] I: Depress (more content not included)... Normal [facility] ED Nursing Noteon 07-10-2024 ED Nursing Note Pt resting quietly i n bed with blanket over face. Respirations even and non labored. No coughing noted at this time. Await transport by [facility]. Normal [facility] ED Nursing Note Dr. Jha at bedside. Normal [facility] ED Nursing Noteon 07-09-[address] Jha to bedside . Pt given water. Normal [facility] ED Provider Noteon ED Provider Note [...] TABLET Place under the tongue. NYSTATIN (MYCOSTATIN) 204111 UNIT/GM POWDER Apply topically 2 times daily. [...] Risk (01/02/2020) Received from [facility] Overall Financial Resource Strain (CARDIA) Difficulty of Paying Living Expenses: Not very hard Food Insecurity: Food Insecurity Present (01/02/2020) Received from [facility] Hunger Vital Sign Worried About Running Out of Food in the Last Year: Sometimes true Ran Out of Food in the Last Year: Never true Transportation Needs: Unmet Transportation Needs (01/02/2020) Received from [facility] (more content not included)... Normal [facility] XR Chest Single viewon 07-09 1. [...] change again noted in the thoracic spine. [facility] Velasquez Nova MD - 07/09/2024 Patient [...] Electronically Signed Date/Time: 07/09/2024 11:45 PM EST [employer] Radiology Study observation (narrative) [employer] XR Chest Single viewOrdered By: Velasquez Nova on 07-09-2024 [employer] Work Phone: CNOVon 05-02-2024 CNOV Office Visit (PSYLWM ) RANDOLPH HUNTER ([id number]) 1950 F Date Time Provider Department 05/02/24 11:00 AM GILMER COTTON PSYLWM During your visit today, we recorded the following information about you: Gilmer Cotton, PhD 05/02/2024 12:11 PM Signed [facility] Progress Note Randolph Hunter 05/02/2024 [id number] PROVIDER: Gilmer Cotton, PhD CPT Code: Time: [...] SAFETY SYRINGE) 1 mL 25 gauge x 5/8 Use as directed once a month. blood sugar diagnostic ([employer] VERIO TEST STRIPS) test strip Test blood sugar(s) 3 times daily. Dx: Other DM Code E11.42 Insulin: Yes ketoconazole (NIZORAL) 2 % cream Apply 1 application to affected area once daily. Syringe with Needle, Safety 3 mL 23 gauge x 1 1 Each as directed. Use one each [...] Issues: No change from previous appointment DIAGNOSIS: [place] I: Depressive Disorder recurrent Morbidly Obese CP [place] II : Deferred [place] III : See medical history [place] IV: Health (more content not included)... Normal [facility] PATINSon 02-10-2024 PATINS Ordered treatment co mpleted and patient is healed. Patient discharged without any issues. All questions answered. Call the clinic if your wound reopens or a new wound appears at [phone]. Edema/Swelling: Avoid standing for long periouds of [...] a day to promote wound healing Normal [facility] Progress Noteon 02-10-2024 Progress Note Assessments [...] Test Results/Process Orders 10 [] Staff telephones [facility], Nursing Homes/Clarify Orders 10 [] Routine Transfer [...] Level 5 (160 or more Points) Normal [facility] Progress Note Subjective Patient ID: Randolph [...] prn Pt agrees with plan . Normal [facility] No Panel Informationon 01-26 Isaac Chicas DO 01/27/2024 1:59 PM Debridement Wound/Incision 01/20/24 Diabetic Ulcer Foot Left Performed by: Isaac Chicas DO Authorized by: Isaac Chicas, DO Consent Consent obtained? verbal Consent given by: patient Risks discussed? procedural risks discussed Immediately prior to the procedure a time out was called and the performing provider verified the correct patient, procedure, equipment, learning support aide, and site/side marked as required. Debridement Details [...] Response to treatment: procedure was tolerated well [facility] PATINSon 01-27-2024 PATINS Follow-up Appointmen ts: Return Appointment in 1 week. Call [place] wound center at [phone], [facility] at [phone], or [facility] Wound center at [phone]. Edema/Swelling: Avoid standing for long periouds of [...] the wound and secure with tape. Normal [facility] No Panel Informationon 01-19 Isaac Chicas DO 01/20/2024 3:54 PM Debridement Wound/Incision 01/20/24 Pressure Injury Foot Left Performed by: Isaac Chicas DO Authorized by: Isaac Chicas, Consent Consent obtained? verbal Consent given by: patient Risks discussed? procedural risks discussed Immediately prior to the procedure a time out was called and the performing provider verified the correct patient, procedure, equipment, learning support aide, and site/side marked as required. Debridement Details [...] Response to treatment: procedure was tolerated well [facility] PATINSon 01-20-2024 PATINS Follow-up Appointmen ts: Return Appointment in 1 week. Call [place] wound center at [phone], [facility] at [phone], or [facility] Wound center at [phone]. Edema/Swelling: Avoid standing for long periouds of [...] the wound and secure with tape. Normal [facility] Progress Noteon 01-20-2024 Progress Note [facility] [place] [address] [place] [address] Loc: [phone] Wound Care Visit - New Patient Progress [...] ti,es a day, Disp: , Rfl: HYDROcodone-acetaminophen ([place]) 5-325 MG tablet, Take 1 tablet by [...] the tongue., Disp: , Rfl: nystatin (Mycostatin) 217369 UNIT/GM powder, Apply topically 2 times daily., [...] ?C (97.2 ?F) Resp 18 Ht 5' 2 (1.575 m) Wt 213 lb (96.6 kg) [...] Consent given (more content not included)... Normal [facility] Progress Note Assessments Nursing Assessment/Reassessment Score (check [...] Test Results/Process Orders 10 [x] Staff telephones [facility], Nursing [facility]/Clarify Orders 10 [] Routine Transfer to another [...] Level 5 (160 or more Points) Normal [facility] ED Nursing Noteon 12-16-2023 ED Nursing Note Patient wheeled out ED for transport to residence. discharge instructions sent to facility with patient. No further questions. Respirations even and non labored. No acute distress. A&O x4. Gifty Cornell RN 12/16/23 0015 Normal [facility] BASIC METABOLIC PANELon 11-21 Anion gap [Moles/Vol] 4 mmol/L Normal 3-13 [facility] Comment on above: Performed By: #### L AB149, [id number] ####Cardiac Monitor Technician: PING TOWNSEND ([id number])[facility] [place] [address] Calcium [Mass/Vol] 8.7 mg/dL Normal 8.4-10.4 [facility] Comment on above: Performed By: #### L AB149, LAB15 ####Cardiac Monitor Technician: PING TOWNSEND ([id number])[facility] [employer] (SWRLAB)[address] [place] [address] Chloride [Moles/Vol] 99 mmol/L Normal 98-107 [facility] Comment on above: Performed By: #### L AB149, LAB15 ####Cardiac Monitor Technician: PING TOWNSEND ([phone])[facility] [employer] (SWRLAB)[address] [place] [address] [place] CO2 [Moles/Vol] 32 mmol/L High 22-30 [facility] Comment on above: Performed By: #### L AB149, LAB15 ####Cardiac Monitor Technician: PING TOWNSEND ([id number])FION[facility] ROSSTMAN (SWRLAB)[address] [place] [address] [place] Creatinine [Mass/Vol] 1.03 mg/dL Normal 0.52-1.04 [facility] Comment on above: Performed By: #### L AB149, LAB15 ####Cardiac Monitor Technician: PING TOWNSEND ([phone])[facility] ROSSTMAN (SWRLAB)[address] [place] [address] [place] GLOMERULAR FILTRATION RATE ML/MIN/1.73 SQ M.PREDICTED 57.9 mL/min/1.73m*2 Low >60.0 [facility] Comment on above: Result Comment: Calc ulation based on the Chronic Kidney Disease Epidemiology Collaboration (CKD-EPI) equation refit without adjustment for race Performed By: #### L AB149, LAB15 ####Cardiac Monitor Technician: PING TOWNSEND ([phone])[facility] ROSSTMAN (SWRLAB)[address] [place] [address] [place] Glucose [Mass/Vol] 104 mg/dL High 70-100 [facility] Comment on above: Performed By: #### L AB149, LAB15 ####Cardiac Monitor Technician: PING TOWNSEND ([id number])[facility] CHATTERJEE RITTMAN (SWRLAB)[address] [place] [address] [place] Potassium [Moles/Vol] 4.5 mmol/L Normal 3.5-5.1 [facility] Comment on above: Performed By: #### L AB149, LAB15 ####Cardiac Monitor Technician: PING TOWNSEND ([id number])[facility] ROSSTMAN (SWRLAB)[address] [place] [address] [place] Sodium [Moles/Vol] 135 mmol/L Normal 135-145 [facility] Comment on above: Performed By: #### L AB149, LAB15 ####Cardiac Monitor Technician: PING TOWNSEND ([id number])[facility] KLAUSTMAN (SWRLAB)[address] [place] [address] Urea nitrogen [Mass/Vol] 12 mg/dL Normal 7-17 [facility] Comment on above: Performed By: #### L AB149, LAB15 ####Cardiac Monitor Technician: PING TOWNSEND ([id number])[facility] KLAUSTMAN (SWRLAB)[address] [place] [address] BLOOD CULTUREon 12-15-2023 Bacteria identified Cx Nom (Bld) BLOOD CULTURE Reference No growth at 5 days ORDER COMMENTS: Blood Collection Site: Right Antecubital [ S = SUSCEPTIBLE R = RESISTANT I = INTERMEDIATE S-DD = Susceptible-dose dependent NS = Non-susceptible NO = No Interpretation ] Normal [facility] Comment on above: Performed By: #### L [id number] ####Cardiac Monitor Technician: PING TOWNSEND ([id number])[facility] ([facility])[address] [place] [address] Bacteria identified Cx Nom (Bld) BLOOD CULTURE Reference No growth at 5 days ORDER COMMENTS: Blood Collection Site: Left Antecubital [ S = SUSCEPTIBLE R = RESISTANT I = INTERMEDIATE S-DD = Susceptible-dose dependent NS = Non-susceptible NO = No Interpretation ] Normal [facility] Comment on above: Performed By: #### L AB462 ####Cardiac Monitor Technician: PING TOWNSEND ([id number])[facility] ([facility])[address] [place] [address] Basic metabolic 1998 panelon 12-15-2023 Anion gap [Moles/Vol] 4 mmol/L 3 - 13 mmol/L [facility] Calcium [Mass/Vol] 8.7 mg/dL 8.4 - 10. 4 mg/dL [facility] Chloride [Moles/Vol] 99 mmol/L 98 - 10 7 mmol/L [facility] CO2 [Moles/Vol] 32 mmol/L High 22 - 30 mmol/L [facility] Creatinine [Mass/Vol] 1.03 mg/dL 0.52 - 1.04 mg/dL [facility] GFR/1.73 sq M.predicted MDRD (S/P/Bld) [Vol rate/Area] 57.9 mL/min/{1.73_m2} Low - PINF [facility] Comment on above: Calculation based on the Chronic Kidney Disease Epidemiology Collaboration (CKD-EPI) equation refit without adjustment for race Glucose [Mass/Vol] 104 mg/dL High 70 - 100 mg/dL [facility] [employer] Potassium [Moles/Vol] 4.5 mmol/L 3.5 - 5.1 mmol/L [facility] Sodium [Moles/Vol] 135 mmol/L 135 - 145 mmol/L [facility] [employer] Urea nitrogen [Mass/Vol] 12 mg/dL 7 - 17 mg/dL [facility] [employer] C-REACTIVE PROTEINon 024 CRP [Mass/Vol] 57.4 mg/L High <10.0 [facility] Comment on above: Performed By: #### L AB149, LAB15 ####Cardiac Monitor Technician: PING TOWNSEND ([phone])[facility] (SWRL[facility])[address] [place] [address] CBC W Auto Differential pane l (Bld)on 12-15-2023 Basophils (Bld) [#/Vol] 0.0 10*3/uL 0.0 - 0.2 10*3/uL [facility] Basophils/100 WBC (Bld) 0.2 % 0.0 - 2.0 % [facility] Eosinophils (Bld) [#/Vol] 0.1 10*3/uL 0.0 - 0.5 10*3/uL [facility] Eosinophils/100 WBC (Bld) 0.7 % 0.0 - 6.0 % [facility] Erythrocyte distribution width (RBC) [Ratio] 12.6 % 11.5 - 15.0 % [facility] [employer] Hematocrit (Bld) [Volume fraction] 38.3 % 35.0 - 47.0 % [facility] Hemoglobin (Bld) [Mass/Vol] 13.1 g/dL 11.7 - 16.0 g/dL [facility] [employer] Immature granulocytes (Bld) [#/Vol] 0.0 10*3/uL NINF - 0.1 10*3/uL [facility] [employer] Immature granulocytes/100 WBC (Bld) 0.2 % 0.0 - 2.0 % [facility] Interpretation and review of laboratory results Abnormal [facility] IPF 3 [facility] Lymphocytes (Bld) [#/Vol] 0.9 10*3/uL Low 1.0 - 4.3 10*3/uL [facility] Lymphocytes/100 WBC (Bld) 11.2 % Low 15.0 - 45.0 % [facility] MCH (RBC) [Entitic mass] 31.2 pg 26.0 - 34.0 pg [facility] MCHC (RBC) [Mass/Vol] 34.2 % 30.5 - 36.0 % [facility] MCV (RBC) [Entitic vol] 91.2 fL 77.0 - 99.0 fL [facility] Monocytes (Bld) [#/Vol] 0.5 10*3/uL 0.0 - 0.9 10*3/uL [facility] Monocytes/100 WBC (Bld) 5.6 % 5.0 - 13.0 % [facility] Neutrophils (Bld) [#/Vol] 6.8 10*3/uL 1.8 - 7.5 10*3/uL [facility] Neutrophils/100 WBC (Bld) 82.1 % High 38.0 - 82.0 % [facility] Nucleated RBC/100 WBC (Bld) [Ratio] 0.0 % [facility] Platelet mean volume (Bld) [Entitic vol] 10.1 fL 9.0 - 12.7 fL [facility] Platelets (Bld) [#/Vol] 149 10*3/uL 140 - 440 10*3/uL [facility] RBC (Bld) [#/Vol] 4.20 10*6/uL 3.80 - 5.20 10*6/uL [facility] WBC (Bld) [#/Vol] 8.3 10*3/uL 3.6 - 10.7 10*3/uL [facility] CBC WITH AUTO DIFFERENTIALon 12-15-2023 Basophils (Bld) [#/Vol] 0.0 10*3/uL Normal 0.0-0.2 [facility] Comment on above: Performed By: #### L [id number], [id number] ####Cardiac Monitor Technician: PING TOWNSEND ([id number])[facility] (SWRL[employer])[address] [place] [address] [place] Basophils/100 WBC (Bld) 0.2 % Normal 0.0-2.0 [facility] Comment on above: Performed By: #### L AB322, [id number] ####Cardiac Monitor Technician: PING TOWNSEND ([id number])[facility] CHATTERJEE [facility] (SWRL[employer])[address] [place] [address] Eosinophils (Bld) [#/Vol] 0.1 10*3/uL Normal 0.0-0.5 [facility] Comment on above: Performed By: #### L AB322, [id number] ####Cardiac Monitor Technician: PING TOWNSEND ([id number])[facility] CHATTERJEE [facility] (SWRL[employer])[address] [place] [address] [place] Eosinophils/100 WBC (Bld) 0.7 % Normal 0.0-6.0 [facility] Comment on above: Performed By: #### Abiodun AB322, [id number] ####Cardiac Monitor Technician: PING TOWNSEND ([id number])[facility]TERJEE [employer] (SW[facility])[address] [place] [address] Erythrocyte distribution width (RBC) [Ratio] 12.6 % Normal 11.5-15.0 [facility] Comment on above: Performed By: #### Abiodun AB322, [id number] ####Cardiac Monitor Technician: PING TOWNSEND ([id number])[facility] CHATTERJEE [employer] (SW[employer])[address] [place] [address] Hematocrit (Bld) [Volume fraction] 38.3 % Normal 35.0-47.0 [facility] Comment on above: Performed By: #### L AB322, [id number] ####Cardiac Monitor Technician: PING TOWNSEND ([id number])[facility]ATTERJEE [employer] (SW[employer])[address] [place] [address] Hemoglobin (Bld) [Mass/Vol] 13.1 g/dL Normal 11.7-16.0 [facility] Comment on above: Performed By: #### L AB322, [id number] ####Cardiac Monitor Technician: PING TOWNSEND ([id number])[facility]TERJEE [employer] (SW[employer])[address] [place] [address] IMMATURE GRANS % 0.2 % Normal 0.0-2.0 [facility] Comment on above: Performed By: #### L AB322, [id number] ####Cardiac Monitor Technician: PING TOWNSEND ([id number])[facility]TERJ[facility] (SW[facility])[address] [place] [address] IMMATURE GRANS ABSOLUTE 0.0 10*3/uL Normal <0.1 [facility] Comment on above: Performed By: #### L AB322, [id number] ####Cardiac Monitor Technician: PING TOWNSEND ([id number])[facility]TERJEE [facility] (SWRL[facility])[address] [place] [address] [place] IPF 3 Normal [facility] Comment on above: Performed By: #### Abiodun AB322, [id number] ####Cardiac Monitor Technician: PING TOWNSEND ([id number])[facility]TERJEE [facility] (SW[employer])[address] [place] [address] Lymphocytes (Bld) [#/Vol] 0.9 10*3/uL Low 1.0-4.3 [facility] Comment on above: Performed By: #### Abiodun AB322, [id number] ####Cardiac Monitor Technician: PING TOWNSEND ([id number])[facility]TERJ[facility] (SW[facility])[address] [place] [address] [place] Lymphocytes/100 WBC (Bld) 11.2 % Low 15.0-45.0 [facility] Comment on above: Performed By: #### L AB322, [id number] ####Cardiac Monitor Technician: PING TOWNSEND ([id number])[facility] LANGSTONERIC [facility] (SWRLAB)[address] [place] [address] MCH (RBC) [Entitic mass] 31.2 pg Normal 26.0-34.0 [facility] Comment on above: Performed By: #### Abiodun AB322, [id number] ####Cardiac Monitor Technician: PING TOWNSEND ([id number])[facility]TERJ[facility] (SW[facility])[address] [place] [address] MCHC 34.2 % Normal 30.5-36.0 [facility] Comment on above: Performed By: #### Abiodun AB322, [id number] ####Cardiac Monitor Technician: PING TOWNSEND ([id number])[facility]TERJEE [facility] (SWRL[facility])[address] [place] [address] MCV (RBC) [Entitic vol] 91.2 fL Normal 77.0-99.0 [facility] Comment on above: Performed By: #### Abiodun AB322, [id number] ####Cardiac Monitor Technician: PING TOWNSEND ([id number])[facility]TERJEE [facility] (SW[facility])[address] [place] [address] Monocytes (Bld) [#/Vol] 0.5 10*3/uL Normal 0.0-0.9 [facility] Comment on above: Performed By: #### Abiodun AB322, [id number] ####Cardiac Monitor Technician: PING TOWNSEND ([id number])[facility]TERJEE [facility] (SWRLAB)[address] [place] [address] [place] Monocytes/100 WBC (Bld) 5.6 % Normal 5.0-13.0 [facility] Comment on above: Performed By: #### Abiodun AB322, [id number] ####Cardiac Monitor Technician: PING TOWNSEND ([id number])[facility] LANGSTONERIC RITTMAN (SWRLAB)[address] [place] [address] NEUTROPHILS ABSOLUTE 6.8 10*3/uL Normal 1.8-7.5 [facility] Comment on above: Performed By: #### Abiodun AB322, [id number] ####Cardiac Monitor Technician: PING TOWNSEND ([id number])[facility] CH[facility]TERJEE [facility] (SWRLAB)[address] [place] [address] [place] Neutrophils/100 WBC (Bld) 82.1 % High 38.0-82.0 [facility] Comment on above: Performed By: #### Abiodun AB322, [id number] ####Cardiac Monitor Technician: PING TOWNSEND ([id number])[facility]TERJEE [facility] (SWRL[facility])[address] [place] [address] [place] NRBC 0.0 /100 WBCs Normal 0.0-2.0 [facility] Comment on above: Performed By: #### Abiodun AB322, [id number] ####Cardiac Monitor Technician: PING TOWNSEND ([id number])[facility] CH[facility]TERJEE [facility] (SWRLAB)[address] [place] [address] [place] Platelet mean volume (Bld) [Entitic vol] 10.1 fL Normal 9.0-12.7 [facility] Comment on above: Performed By: #### Abiodun AB322, [id number] ####Cardiac Monitor Technician: PING TOWNSEND ([id number])[facility]TERJEE [facility] (SWRLAB)[address] [place] [address] [place] Platelets (Bld) [#/Vol] 149 10*3/uL Normal 140-440 [facility] Comment on above: Performed By: #### Abiodun AB322, [id number] ####Cardiac Monitor Technician: PING TOWNSEND ([id number])[facility] CH[facility]TERJEE [facility] (SWRLAB)[address] [place] [address] [place] RBC (Bld) [#/Vol] 4.20 10*6/uL Normal 3.80-5.20 [facility] Comment on above: Performed By: #### L AB322, [id number] ####Cardiac Monitor Technician: PING TOWNSEND ([id number])F[facility] CHATTERJEE R[facility] (SWRLAB)[address] [place] [address] [place] WBC (Bld) [#/Vol] 8.3 10*3/uL Normal 3.6-10.7 [facility] Comment on above: Performed By: #### L AB322, [id number] ####Cardiac Monitor Technician: PING TOWNSEND ([id number])[facility] ZEPEDA (SWRLAB)[address] ED Nursing Noteon 12-15-2023 ED Nursing Note Patient to room 7 vi a [facility] for c/o a left foot ulcer, lower leg erythema, and a headache. Patient reports she has had her foot ulcer for a couple of months. V/S obtained, call light within reach. Normal [facility] ED Provider Noteon ED Provider Note [...] Resource Strain: Low Risk (01/02/2020) Received from [facility], [facility] Overall Financial Resource Strain (CARDIA) Difficulty of Paying Living Expenses: Not very hard Food Insecurity: Food Insecurity Present (01/02/2020) Received from [facility] Hunger Vital Sign Worried About Running Out of Food in the Last Year: Sometimes true Ran Out of Food in the Last Year: Never true Transportation Needs: Unmet Transportation Needs (01/02/2020) Received from [facility] PRAPARE - Transportation Lack of Transportation (Medical): Yes Lack of Transportation (Non-Medical): Yes Physical Activity: Inactive (01/02/2020) Received from [facility] Exercise Vital Sign Days of Exercise per Week: 0 days Minutes of Exercise per Session: 0 min Stress: Stress Concern Present (01/02/2020) Received from [facility] [employer] [place] [employer] - Occupational Stress Questionnaire Feeling of Stress : Rather much Social Connections: Moderately Isolated (01/02/2020) Received from [facility] Social Connection and Isolatio (more content not included)... Normal [facility] ED Provider Note This patient was [...] about putting in her observation unit at [facility] for 24 hours of IV antibiotics versus discharging home with oral antibiotics. After shared decision-making she elected to go home. I do think that this is a safe plan. She lives in assisted living and they can help her with continuing to monitor her wound. Gave her strict return precautions and discharged in stable condition. Karen Gallardo MD 12/15/23 193 Normal [facility] ESR (Bld) [Velocity]Ordered By: Lexi Arce on 12-15-2023 Interpretation and review of laboratory results Normal [facility] Laboratory - Chemistry and C hemistry - challengeon 12-15-2023 CRP [Mass/Vol] 57.4 mg/L High NINF - 10.0 mg/L [facility] Laboratory - Hematology and Cell countsOrdered By: Lexi Arce on 12-15-2023 ESR (Bld) [Velocity] 16 mm/h [facility] No Panel Informationon 12-14 Interpretation and review of laboratory results Abnormal [facility] SEDIMENTATION RATE, AUTOMATE Don 12-15-2023 SEDIMENTATION RATE, ERYTHROCYTE 16 mm/hr Normal 0-20 [facility] Comment on above: Performed By: #### L [id number], [id number] ####Cardiac Monitor Technician: PING TOWNSEND ([phone])[facility] ([facility])[address] [place] [address] XR Foot - left 3 Viewson No obvious acute osteomyelitis. Report Dictated on Electronically Signed By: Gloria Darnell MD Electronically Signed Date/Time: 12/15/2023 7:01 PM EDT [facility] Patient Name: [...] of the forefoot. Diffuse vascular calcification present. [facility] Gloria Darnell MD - 12/15/2023 Patient [...] Electronically Signed Date/Time: 12/15/2023 7:01 PM EDT [facility] Radiology Study observation (narrative) [facility] XR Foot - left 3 ViewsOrdere d By: Gloria Darnell on 12-15-2023 [facility] Work Phone: ED Nursing Noteon 07-20-2023 ED Nursing Note Physician's arrived; pt removed from urine collection device and pts own attends placed on pt per her request. Pts belongings in bag at bedside. Report to Physician's. Veronika Bae RN 07/20/23 0836 Normal [facility] ED Nursing Note Physician's Ambulanc e arrived with an ambulette/wheelchair van. Chaisdy MCCRACKEN spoke with Physician's to inform them that the pt is non ambulatory and needed a stretcher. Physician's states they will have a stretcher here within the hour. Veronika Bae RN 07/20/23 0717 Normal [facility] ED Nursing Note Patient pressed call light to request pain medication. States pain is in shoulders and down the back from laying on the tables. notified Gifty Cornell RN 07/20/23 0044 Normal [facility] CT CERVICAL SPINE WO IV CONT Teresa 07-19-2023 CT CERVICAL SPINE WO IV CONTRAST Patient Name: RANDOLPH HUNTER : 1950 Exam Date/Time: 07/19/2023 22:56 Procedure: CT CERVICAL SPINE WO IV CONTRAST Ordering Provider: ANNA DOUGLAS Reason For Exam: cervical spine pain after fall. fails honduran CT CERVICAL SPINE: CLINICAL INDICATION: cervical spine pain after fall. fails honduran TECHNIQUE: Transaxial sequence through the cervical spine. [...] Signed Date/Time: 07/19/2023 11:18 PM EST [facility] CT Cervical spine WO contras ton 07-19-2023 No acute cervical sp ine fracture. Multilevel cervical spondylosis. Report Dictated on Electronically Signed By: Albina Newton MD Electronically Signed Date/Time: 07/19/2023 11:18 PM [facility] Patient Name[facility]ANDOLPH HUNTER : 1950 [id number] Exam Date/Time: 07/19/2023 22:56 Procedure: CT CERVICAL SPINE WO IV CONTRAST Ordering Provider: ANNA DOUGLAS Reason For Exam: cervical spine pain after fall. fails honduran CT CERVICAL SPINE: CLINICAL INDICATION: cervical spine pain after fall. fails honduran TECHNIQUE: Transaxial sequence through the cervical spine. [...] submandibular gland. Other: Lung apices are unremarkable. [facility] Albina Newton M D - 07/19/2023 Patient Name: RANDOLPH HUNTER : 1950 Exam Date/Time: 07/19/2023 22:56 Procedure: CT CERVICAL SPINE WO IV CONTRAST Ordering Provider: ANNA DOUGLAS Reason For Exam: cervical spine pain after fall. fails honduran CT CERVICAL SPINE: CLINICAL INDICATION: cervical spine pain after fall. fails honduran TECHNIQUE: Transaxial sequence through the cervical spine. [...] Electronically Signed Date/Time: 07/19/2023 11:18 PM EST [facility] Radiology Study observation (narrative) [facility] CT Cervical spine WO contras tOrdered By: Albina Newton on 07-19-2023 [employer] Phone: CT HEAD WO IV CONTRASTon CT [...] Signed Date/Time: 07/19/2023 11:02 PM EST Normal [facility] CT Head WO contraston 2023 No acute intracrania l abnormality. Mild diffuse cortical volume loss. Report Dictated on Electronically Signed By: Albina Newton MD Electronically Signed Date/Time: 07/19/2023 11:02 PM [facility] [...] 07/19/2023 Patient Name: RANDOLPH HUNTER : 1950 [id number] Exam Date/Time: 07/19/2023 22:58 Procedure: CT HEAD [...] Electronically Signed Date/Time: 07/19/2023 11:02 PM EST [facility] Radiology Study observation (narrative) [facility] CT Head WO contrastOrdered B y: Albina Newton on 07-19-2023 [employer] Phone: CT PELVIS WO IV CONTRASTon 0 [...] MD Electronically Signed Date/Time: 07/19/2023 11:27 PM [facility] Normal [facility] CT Pelvis WO contraston 06-23 No acute fracture. Nonacute findings, as above. Report Dictated on Electronically Signed By: Albina Newton MD Electronically Signed Date/Time: 07/19/2023 11:27 PM [facility] [...] Electronically Signed Date/Time: 07/19/2023 11:27 PM EST [facility] Radiology Study observation (narrative) [facility] CT Pelvis WO contrastOrdered By: Albina Newton on 07-19-2023 [facility] Work Phone: ED Nursing Noteon 07-19-2023 ED Nursing Note Report given to Shubham lopes RN & Chasidy RN. Patient still in radiology. Pia Caraballo RN 07/19/23 0273 Normal [facility] ED Nursing Note Dispo per imaging :) Chasidy Fernandez RN 07/19/23 0189 Normal [facility] ED Nursing Note Pt placed up for dis charge. No discharge paperwork complete at this time. Once orders are complete and discharge paperwork complete by ER DR Pt will be discharged. Chasidy Fernandez RN 07/19/23 1593 Normal [facility] ED Nursing Note This RN requested or ders from ER . Chasidy Fernandez RN 07/19/232025 Normal [facility] ED Nursing Note Patient is here for right hip pain. She was transferring to the toilet when she fell. She resides at [address] She currently is working with a physical therapist and is in a wheelchair. Patient hooked up to [employer] due to incontinence. She also has right knee bruising that is from her repeatedly hitting it on her wheelchair. She denies hitting her head or neck during fall. She is on coumadin. Call light within reach. Normal [facility] ED Provider Noteon ED Provider Note [...] herself off the ground), they may have wrenched my neck in the process. Denies any focal numbness [...] Source Patient (more content not included)... Normal [facility] No Panel Informationon 07-19 1. Right knee arthro plasty in adequate alignment 2. Unremarkable right hip 3. Osteoarthritis of the left knee Report Dictated on Electronically Signed By: Phan Sepulveda MD Electronically Signed Date/Time: 07/19/2023 11:53 PM EST [facility] No Panel InformationOrdered By: Phan Sepulveda on 07-19-2023 [employer] Work Phone: XR Femur - right 2 [...] calcifications as well as the popliteal fossa. [facility] Phan Sepulveda MD - 07/19/2023 Patient Name: [...] Electronically Signed Date/Time: 07/19/2023 11:53 PM EST [employer] Radiology Study observation (narrative) [employer] XR Knee - left 3 Viewson Patient [...] Electronically Signed Date/Time: 07/19/2023 11:53 PM EST [facility] Radiology Study observation (narrative) [employer] XR Knee - right 3 Viewson Patient [...] Electronically Signed Date/Time: 07/19/2023 11:53 PM EST [facility] Radiology Study observation (narrative) [facility] ECG 12-LEADon 09-07-2022 ECG 12-LEAD IMPRESSION: Sinus rhythm Borderline left axis deviation Probable lateral infarct, old Abnrm R prog, consider ASMI or lead placement Electronically Signed On 09-07-2022 11:08:52 EDT by Sai Melchor Normal [facility] System [facility] ABO and Rh group Confirm Nom (Bld)on 09-06-2022 ABO group Nom (Bld) A [facility] D Ag Ql (RBC) Negative [facility] Basic metabolic 1998 panelon 09-06-2022 Anion gap [Moles/Vol] 5 mmol/L 3 - 13 mmol/L [facility] Calcium [Mass/Vol] 9.2 mg/dL 8.4 - 10. 4 mg/dL [facility] Chloride [Moles/Vol] 104 mmol/L 98 - 10 7 mmol/L [facility] CO2 [Moles/Vol] 30 mmol/L 22 - 30 mmol/L [facility] Creatinine [Mass/Vol] 0.86 mg/dL 0.52 - 1.04 mg/dL [facility] GFR/1.73 sq M.predicted MDRD (S/P/Bld) [Vol rate/Area] 72.3 mL/min/{1.73_m2} - PINF [facility] Comment on above: Calculation based on the Chronic Kidney Disease Epidemiology Collaboration (CKD-EPI) equation refit without adjustment for race Glucose [Mass/Vol] 144 mg/dL High 70 - 100 mg/dL [facility] Interpretation and review of laboratory results Abnormal [facility] Potassium [Moles/Vol] 5.4 mmol/L High 3.5 - 5.1 mmol/L [facility] Sodium [Moles/Vol] 139 mmol/L 135 - 145 mmol/L [facility] Urea nitrogen [Mass/Vol] 26 mg/dL High 7 - 17 mg/dL [facility] Slightly Hemolyzed. Interpret Potassium with caution. [facility] Blood type and Crossmatch pa shaheen (Bld)on 09-06-2022 ABO group Nom (Bld) A [facility] Blood group antibody screen GEL Ql Negative [facility] D Ag Ql (RBC) Negative [facility] CBC W Auto Differential pane l (Bld)on 09-06-2022 Basophils (Bld) [#/Vol] 0.0 10*3/uL 0.0 - 0.2 10*3/uL [facility] Basophils/100 WBC (Bld) 0.5 % 0.0 - 2.0 % [facility] Eosinophils (Bld) [#/Vol] 0.2 10*3/uL 0.0 - 0.5 10*3/uL [facility] Eosinophils/100 WBC (Bld) 3.3 % 1.0 - 6.0 % [facility] Erythrocyte distribution width (RBC) [Ratio] 14.5 % 11.5 - 14.5 % [facility] Hematocrit (Bld) [Volume fraction] 40.1 % 35.0 - 47.0 % [facility] Hemoglobin (Bld) [Mass/Vol] 12.9 g/dL 11.7 - 16.0 g/dL [facility] Interpretation and review of laboratory results Normal [facility] Lymphocytes (Bld) [#/Vol] 1.6 10*3/uL 1.0 - 4.3 10*3/uL [facility] Lymphocytes/100 WBC (Bld) 24.7 % 20.0 - 40.0 % [facility] MCH (RBC) [Entitic mass] 30.6 pg 26.0 - 34.0 pg [facility] MCHC (RBC) [Mass/Vol] 32.2 % 32.0 - 36.0 % [facility] MCV (RBC) [Entitic vol] 95.2 fL 80.0 - 98.0 fL [facility] Monocytes (Bld) [#/Vol] 0.5 10*3/uL 0.0 - 0.8 10*3/uL [facility] Monocytes/100 WBC (Bld) 7.9 % 2.0 - 10.0 % [facility] Neutrophils (Bld) [#/Vol] 4.1 10*3/uL 1.8 - 7.0 10*3/uL [facility] Neutrophils/100 WBC (Bld) 63.6 % 40.0 - 80.0 % [facility] Nucleated RBC/100 WBC (Bld) [Ratio] 0.1 % [facility] Platelet mean volume (Bld) [Entitic vol] 8.7 fL 7.4 - 12.4 fL [facility] Platelets (Bld) [#/Vol] 150 10*3/uL 140 - 440 10*3/uL [facility] RBC (Bld) [#/Vol] 4.21 10*6/uL 3.8 - 5.20 10*6/uL [facility] WBC (Bld) [#/Vol] 6.4 10*3/uL 3.6 - 10.7 10*3/uL [facility] CT CERVICAL SPINE WO IV [...] Electronically Signed Date/Time: 09/06/2022 2:24 AM EDT [facility] CT Cervical spine WO contras ton 09-06-2022 No cervical spine fr acture. Report Dictated on Workstation: [employer] Electronically Signed By: Tiago Charles Electronically Signed Date/Time: 09/06/2022 2:24 AM EDT [facility] [employer] Patient Name: PATSY MCFARLANE : 1950 [...] soft tissues and lung apices are unremarkable. [facility] Tiago Charles MD - Patient Name: [...] Electronically Signed Date/Time: 09/06/2022 2:24 AM EDT [facility] CT HEAD WO IV CONTRASTon CT HEAD WO IV CONTRAST Patient Name: PATSY JUAN : 1950 [id number] Exam Date/Time: 09/06/2022 08:26 Procedure: CT HEAD [...] Electronically Signed Date/Time: 09/06/2022 8:39 AM EDT [facility] CT HEAD WO IV CONTRAST [...] Electronically Signed Date/Time: 09/06/2022 2:16 AM EDT [facility] CT Head WO contraston [address] evidence of ac radhika intracranial abnormality, other than mild acute sphenoid sinusitis. Report Dictated on Electronically Signed By: Gloria Darnell Electronically Signed Date/Time: 09/06/2022 8:39 AM EDT [facility] Patient Name: DANIEL DIAZ, ECHO : [...] 09/06/2022 Patient Name: PATSY JUAN : 1950 [id number] Exam Date/Time: 09/06/2022 08:26 Procedure: CT HEAD [...] Electronically Signed Date/Time: 09/06/2022 8:39 AM EDT [facility] Radiology Study observation (narrative) [facility] No acute intracrania l hemorrhage or mass effect. Report Dictated on Electronically Signed By: Tiago Charles Electronically Signed Date/Time: 09/06/2022 2:16 AM EDT [facility] Patient Name: DANIEL DIAZ ECHO : [...] cells are well aerated. Calvarium is unremarkable. [facility] Tiago Charles MD - Patient Name: DRAKE, ECHO : 1950 Exam [...] Electronically Signed Date/Time: 09/06/2022 2:16 AM EDT [facility] CT Head WO contrastOrdered B y: Gloria Mann on 09-06-2022 [facility] Work Phone: ED Nursing Noteon 09-06-2022 ED Nursing Note RN called back from Residence for report after patient left. This RN updated RN. No questions or concerns Lucy Jones RN 09/06/22 1115 Normal [facility] ED Nursing Note This RN attempted re port at [facility] for patient. RN's busy, receptionist secretary took RN name and number to return call for report if wanted. Lucy Jones RN 09/06/22 1018 Normal [facility] ED Nursing Note DM ETA 20-30 min (10 20-1030) Lucy Jones RN 09/06/22 0953 Normal [facility] ED Nursing Note Patient resting with eyes closed. Respirations even and unlabored. RN called about work order for call light / panel. Will be there soon to fix. Lucy Jones RN 09/06/22 0944 Normal [facility] ED Nursing Note Pt back in room Lucy Jones RN 09/06/22 0832 Normal [facility] ED Nursing Note Pt at CT Lucy Jones RN 09/06/22 0826 [facility] ED Nursing Note Patient yelling in r oom, due to call light not working in wall. Patient aware, patient door and curtain open. RN went in at this time. Patient wanted to check to see if she had BM. RN also made sure purewick in good position. RN will get vitals and look at orders at this time Lucy Jones, NAWAF 09/06/22 0739 [facility] ED Nursing Note Pt to x-ray in stabl e condition. Bárbara Hogan RN 09/06/22225 [facility] ED Nursing Note Report of to bárbara Younger RN 09/06/22220 [facility] ED Nursing Note Bed: 23 Expected date: Expected time: Means of arrival: Comments: SX TEAM Aaron Wallace RN 09/06/22220 [facility] ED Provider Noteon ED Provider Note Emergency Department Encounter Location: [facility] EM[facility]ENCY [facility] Patient: Patsy Juan : [...] 445 ms QTC Interval 457 ms P [place] 49 degrees QRS [place] -29 degrees T Wave [place] 11 degrees [place] Interval [address] head wo IV [...] Result Upper pelvis is excluded from the jwrsq-ao-[id number]. No fracture or dislocation of the imaged [...] female whose (more content not included)... Normal [facility] ED Provider Note Emergency Department Encounter Location: [facility] EM[facility]GENCY [facility]PT Patient: Patsy Juan : [...] 445 ms QTC Interval 457 ms P [place] 49 degrees QRS [place] -29 degrees T Wave [place] 11 degrees [place] Interval 149 ms XR shoulder 2+ views [...] Result Upper pelvis is excluded from the euyzn-ak-rlha. No fracture or dislocation of the imaged [...] Final Impression 1. (more content not included)... [facility] ED Provider Note [facility] EM[facility]GENCY [facility]PT EMERGENCY DEPARTMENT ENCOUNTER Pt [...] (more content not included)... Normal [facility] Ethanol (Bld) [Mass/Vol]on 0 09-06-2022 Ethanol [Mass/Vol] g/dL 0.000 - 0.010 g/dL [facility] Laboratory - Chemistry and C hemistry - challengeon 09-06-2022 Troponin I.cardiac [Mass/Vol] ng/mL 0.000 - 0.034 ng/mL [facility] Magnesium [Mass/Vol] 1.8 mg/dL 1.6 - 2 .3 mg/dL [facility] Lactate [Moles/Vol] 1.4 mmol/L 0.7 - 2. 0 mmol/L [facility] Laboratory - Coagulationon 0 09-06-2022 aPTT Coag (PPP) [Time] 33.8 s High 20.0 - 30.5 s [facility] INR Coag (PPP) [Relative time] 1.8 {INR} High 0.9 - 1.1 [facility] Comment on above: Recommended Anticoag ulant Therapy: [...] s High 9.0 - 1 2.0 s [facility] Laboratory - Drug toxicology Ordered By: Harper Estes on 09-06-2022 Amphetamines Screen method >1000 ng/mL Ql (U) Negative [facility] Barbiturates Screen method >200 ng/mL Ql (U) Negative [facility] Benzodiazepines Ql (U) Negative [facility] Methadone Screen Ql (U) Negative [facility] Opiates Screen Ql (U) Positive [facility] oxyCODONE Ql (U) Negative [facility] Phencyclidine Ql (U) Negative [facility] Magnesium [Mass/Vol]on 09-06 .01 [facility] No Panel InformationOrdered By: Harper Estes on 09-06-2022 COCAINE METAB. SCREEN Negative [facility] The expected value f or all [...] is needed, request confirmation under separate order. [facility] No Panel Informationon 09-06 Interpretation and review of laboratory results Normal [facility] [employer] Interpretation and review of laboratory results Normal [facility] [employer] Interpretation and review of laboratory results Abnormal [facility] Radiology Study observation (narrative) [facility] Phosphate [Moles/Vol]on 08-20 Phosphate [Mass/Vol] 3.9 mg/dL 2.5 - 4 .5 mg/dL [facility] Slightly Hemolyzed. Interpret Phosphorus with caution. [facility] Progress Noteon 09-06-2022 Progress Note Department of Trauma / Critical Care Tertiary Survey Date of Trauma: 09/06/2022 1:36 AM MARIANELA/HPI: 72 y.o. female status post fall from standing. The incident happened around 0120 on 09/06/22 at [facility]. When the event happened the [...] identified. There (more content not included)... Normal [facility] Troponin I.cardiac [Mass/Vol ]on 09-06-2022 Interpretation and review of laboratory results Normal [facility] Patients with high l evels of Biotin oral intake (ie >5 mg/day) may have falsely decreased Troponin levels. [facility] XR Chest Single viewon 09-06 No focal consolidati on or pulmonary edema. Report Dictated on Electronically Signed By: Tiago Charles Electronically Signed Date/Time: 09/06/2022 2:12 AM EDT [facility] [employer] Patient Name: DANIEL DIAZ ECHO : 1950 Exam Date/Time: 09/06/2022 02:06 Procedure: XR CHEST 1 VIEW Ordering Provider: HUTSON RICHARD Reason For Exam: TRAUMA PORTABLE CHEST CLINICAL INDICATION: Pain, trauma TECHNIQUE: Portable AP COMPARISON: None FINDINGS: No focal consolidation or pulmonary edema. No pleural effusions or pneumothorax. The cardiac and mediastinal silhouettes are normal. Degenerative change of the thoracic spine is noted. [facility] Tiago Charles [...] or pulmonary edema. Report Dictated on Workstation: [employer] Electronically Signed By: Tiago Charles Electronically Signed Date/Time: 09/06/2022 2:12 AM EDT [employer] Radiology Study observation (narrative) [employer] XR Chest Single viewOrdered By: Tiago Charles on 09-06-2022 [employer] Work Phone: XR Pelvis 1 or 2 Viewson Upper pelvis is excl uded from the jruly-nl-xgee. No fracture or dislocation of the imaged pelvis. Report Dictated on Electronically Signed By: Tiago Charles Electronically Signed Date/Time: 09/06/2022 2:12 AM EDT [facility] [employer] Patient Name: DANIEL DIAZ ECHO : 1950 Exam Date/Time: 09/06/2022 02:07 Procedure: XR PELVIS 1-2 VIEWS Ordering Provider: HUTSON RICHARD Reason For Exam: TRAUMA PELVIS: CLINICAL INDICATION: Pain, trauma. TECHNIQUE: AP. Technical note: Upper pelvis is excluded from the ocngj-rr-afpb. COMPARISON: None. FINDINGS: There is no evidence [...] note: Upper pelvis is excluded from the haxcr-ng-klik. COMPARISON: None. FINDINGS: There is no evidence for fracture or dislocation. The hips joints are unremarkable. The imaged sacroiliac joints are normal. No bone lesion is identified. There is no soft tissue abnormality. Surgical clips project over the right groin. IMPRESSION: Upper pelvis is excluded from the crbba-jk-czaj. No fracture or dislocation of the imaged pelvis. Report Dictated on Electronically Signed By: Tiago Charles Electronically Signed Date/Time: 09/06/2022 2:12 AM EDT [employer] [facility] Radiology Study observation (narrative) [employer] XR Shoulder - left 2 Viewson 09-06-2022 No fracture or dislo cation. Report Dictated on Electronically Signed By: Tiago Charles Electronically Signed Date/Time: 09/06/2022 3:11 AM EDT [employer] Patient Name: PATSY MCFARLANE : 1950 [...] no soft tissue abnormality. [facility] [employer] Tiago Charles MD - Patient Name: [...] Electronically Signed Date/Time: 09/06/2022 3:11 AM EDT [facility] Radiology Study observation (narrative) [facility] XR Shoulder - right 2 Viewso n 09-06-2022 No fracture or dislo cation. Report Dictated on Electronically Signed By: Tiago Charles Electronically Signed Date/Time: 09/06/2022 2:42 AM EDT [employer] Patient Name: PATSY MCFARLANE : 1950 [...] identified. There is no soft tissue abnormality. [facility] Tiago Charles MD - Patient [...] Electronically Signed Date/Time: 09/06/2022 2:42 AM EDT [facility] Radiology Study observation (narrative) [facility] CULTURE BLOODon 03-14-2022 Microscopic examination of blood, culture CULTURE BLOOD --> Status: F [employer] testing is not routinely performed on Gram positive bacilli. If a Listeria infection is highly suspected, contact the Microbiology laboratory ([phone]). positive bacilli. If a Listeria infection is highly suspected, contact the Microbiology laboratory ([phone]). 1 Organism Propionibacterium acnes Isolated: Contamination likely unless additional blood culture sets are found to be positive with the same organism. Normal [facility] Comment on above: Performed By: #### C /BLD #### [email or web address] [address] [place] [address] CULTURE BLOOD (Two)on 2021 Microscopic examination of blood, culture CULTURE BLOOD (Two) --> Status: F No growth at 5 days. Normal [facility] Comment on above: Performed By: #### P T/AP, BMP3, HEMDF #### [email or web address] [address] [place] [address] GASTROINTESTINAL PCR PANELon 03-12-2022 GASTROINTESTINAL PCR PANEL GASTROINTESTINAL PCR PANEL --> Status: F NEGATIVE: No targets were detected by the [employer] Gastrointestinal PCR Panel. _ The [employer] Gastrointestinal PCR Panel can detect the following [...] GI/GII, Rotavirus A, Sapovirus Normal [facility] Comment on above: Performed By: #### B FGI #### [address] [address] Gastrointestinal Panel by CEDR[facility] 03-12-2022 Gastrointestinal PCR Panel NEGATIVE: No targets were detected by the [employer] Gastrointestinal PCR Panel. _ The [employer] Gastrointestinal PCR Panel can detect the following targets: Campylobacter, Plesiomonas shigelloides, Salmonella, Vibrio species, Vibrio cholerae, Yersinia enterocolitica, Shiga toxin-producing E coli (STEC) including E coli O157, Enterotoxigenic E coli (ETEC), Shigella/Enteroinvasive E coli (EIEC), Cryptosporidium, Cyclospora cayetanensis, Entamoeba histolytica, Giardia lamblia, Adenovirus F 40/41, Astrovirus, Norovirus GI/GII, Rotavirus A, Sapovirus [facility] Test Performed by [id number] [place] [address] LAB [facility] Glucose,Bedsideon 03-12-2022 Glucose [Mass/Vol] 177 mg/dL High 70-100 [facility] Comment on above: Result Comment: Test performed by glucose meter. Results may be 10%-15% lower than serum/plasma values. (CLIA ID [id number]) Performed By: #### B GLU #### [facility] [address] [place] [address] Glucose [Mass/Vol] 130 mg/dL High 70-100 [facility] Comment on above: Result Comment: Test performed by glucose meter. Results may be 10%-15% lower than serum/plasma values. (CLIA ID [id number]) Performed By: #### B GLU #### [facility] [address] [place] [address] Glucose [Mass/Vol] 141 mg/dL High 70-100 [facility] Comment on above: Result Comment: Test performed by glucose meter. Results may be 10%-15% lower than serum/plasma values. (CLIA ID [id number]) Performed By: #### P T/AP, BMP3, HEMDF #### [facility] [address] [place] [address] Glucose [Mass/Vol] 120 mg/dL High 70-100 [facility] Comment on above: Result Comment: Test performed by glucose meter. Results may be 10%-15% lower than serum/plasma values. (CLIA ID [id number]) Performed By: #### B GLU #### [facility] [address] [place] [address] POCT GlucoseOrdered By: Hansel Connell on 03-12-2022 Glucose [Mass/Vol] 177 mg/dL High 70 - 100 mg/dL [facility] Work Phone: Comment on above: Test performed by gl ucose meter. Results may be 10%-15% lower than serum/plasma values. (CLIA ID [id number]) Interpretation and review of laboratory results Abnormal [facility] Work Phone: [facility] Work Phone: POCT Glucoseon 03-12-2022 Test Performed by [facility], [address] [place], [place] [id number] [place] [address] LAB Glucose [Mass/Vol] 130 mg/dL High 70 - 100 mg/dL [facility] Comment on above: Test performed by gl ucose meter. Results may be 10%-15% lower than serum/plasma values. (CLIA ID [id number]) Interpretation and review of laboratory results Abnormal [facility] Test Performed by [facility], [address] [place], [place] [id number] [place] [address] LAB [facility] Glucose [Mass/Vol] 141 mg/dL High 70 - 100 mg/dL [facility] Comment on above: Test performed by gl ucose meter. Results may be 10%-15% lower than serum/plasma values. (CLIA ID [id number]) Interpretation and review of laboratory results Abnormal [facility] Test Performed by [facility], [address] [place], [place] [id number] [place] [address] LAB [facility] Glucose [Mass/Vol] 120 mg/dL High 70 - 100 mg/dL [facility] Work Phone: Comment on above: Test performed by gl ucose meter. Results may be 10%-15% lower than serum/plasma values. (CLIA ID [id number]) Interpretation and review of laboratory results Abnormal [facility] Work Phone: Test Performed by [facility], [address] [place], [place] [id number] [place] [address] LAB [facility] Work Phone: Prothrombin Timeon INR 3.6 High 0.9-1.1 [facility] Comment on above: Result Comment: Rajiv [...] P T/AP, BMP3, HEMDF #### [facility] [address] [place] [address] PT Coag (PPP) [Time] 36.1 s High 9.0-12.0 [facility] Comment on above: Result Comment: . Performed By: #### P T/AP, BMP3, HEMDF #### [facility] [address] [place] [address] Protime-INRon 03-12-2022 INR Coag (Bld) [Relative time] 3.6 {INR} High [facility] Comment on above: Recommended Anticoag ulant [...] Interpretation and review of laboratory results Abnormal [facility] PT Coag (PPP) [Time] 36.1 s High 9 - 12 s [facility] Comment on above: . Test Performed by [facility], [address] [place], [place] [id number] [place] [address] LAB [facility] Basic Metabolic Panelon 2 -2021 Anion gap [Moles/Vol] 1 mmol/L Low 3-13 [facility] Comment on above: Performed By: #### P T/AP, BMP3, HEMDF #### [facility] [address] [place] [address] Calcium [Mass/Vol] 8.1 mg/dL Low 8.4-10.4 [facility] Comment on above: Performed By: #### P T/AP, BMP3, HEMDF #### [facility] [address] [place] [address] CO2 [Moles/Vol] 30 mmol/L Normal 22-30 [facility] Comment on above: Performed By: #### P T/AP, BMP3, HEMDF #### [facility] [address] [place] [address] Creatinine [Mass/Vol] 0.70 mg/dL Normal 0.52-1.25 [facility] Comment on above: Performed By: #### P T/AP, BMP3, HEMDF #### [facility] [address] [place] [address] GFR/1.73 sq M.predicted among blacks MDRD (S/P/Bld) [Vol rate/Area] mL/min/{1.73_m2} Normal >60 [facility] Comment on above: Performed By: #### P T/AP, BMP3, HEMDF #### [facility] [address] [place] [address] GFR/1.73 sq M.predicted among non-blacks MDRD (S/P/Bld) [Vol rate/Area] 87.4 mL/min/{1.73_m2} Normal >60 [facility] Comment on above: Result Comment: KDIG [...] P T/AP, BMP3, HEMDF #### [facility] [address] [place] [address] Glucose [Mass/Vol] 118 mg/dL High 70-100 [facility] Comment on above: Performed By: #### P T/AP, BMP3, HEMDF #### [facility] [address] [place] [address] Urea nitrogen [Mass/Vol] 8 mg/dL Low 9-20 [facility] Comment on above: Performed By: #### P T/AP, BMP3, HEMDF #### [facility] [address] [place] [address] Chloride [Moles/Vol] 106 mmol/L Normal 98-107 [facility] Comment on above: Performed By: #### P T/AP, BMP3, HEMDF #### [facility] [address] [place] [address] Potassium [Moles/Vol] 4.1 mmol/L Normal 3.5-5.1 [facility] Comment on above: Performed By: #### P T/CLAIRE RENE HEMFRAN #### [facility] [address] [place] [address] Sodium [Moles/Vol] 137 mmol/L Normal 135-145 [facility] Comment on above: Performed By: #### P T/CLAIRE RENE, HEMDF #### [facility] [address] [place] [address] Anion gap [Moles/Vol] 1 mmol/L Low 3 - 13 mmol/L [facility] Calcium [Mass/Vol] 8.1 mg/dL Low 8.4 - 10. 4 mg/dL [facility] Chloride [Moles/Vol] 106 mmol/L 98 - 10 7 mmol/L [facility] CO2 [Moles/Vol] 30 mmol/L 22 - 30 mmol/L [facility] Creatinine [Mass/Vol] 0.7 mg/dL 0.52 - 1.25 mg/dL [facility] eGFR mL/min 60 - P INF mL/min [facility] EGFR IF NonAfrican Norwegian 87.4 mL/min 60 - PINF mL/min [facility] Comment on above: KDIGO guidelines pro [...] - 20 mg/dL [facility] Test Performed by [facility], [address], [place], [place] [id number] [place] [address] LAB [facility] CBC with Auto Differentialon 03-11-2022 [...] [Mass/Vol] 11.7 g/dL 11.7 - 16 g/dL [facility] Interpretation and review of laboratory results [...] - 10.7 10*3/uL [facility] Test Performed by [facility], [address], [place] [address] [facility] CULTURE URINEon 03-11-2022 CULTURE URINE 1 [...] Amikacin(NORMA) <= 2 S Normal [facility] Comment on above: Performed By: #### P T/AP, BMP3, HEMDF #### [facility] [address] [place] [address] Culture, Urineon 03-11-2022 Bacteria identified Cx Nom (U) Klebsiella pneumoniae ss. pneumoniae Abnormal [facility] Bacteria identified Cx Nom (U) >100,000 CFU/ml [facility] Interpretation and review of laboratory results Abnormal [facility] Test Performed by [facility], [facility], [place] [address] [facility] Glucose,Bedsideon 03-11-2022 Glucose [Mass/Vol] 140 mg/dL High 70-100 [facility] Comment on above: Result Comment: Test performed by glucose meter. Results may be 10%-15% lower than serum/plasma values. (CLIA ID [id number]) Performed By: #### P T/AP, BMP3, HEMDF #### [facility] [address] [place] [address] Glucose [Mass/Vol] 121 mg/dL High [address] [facility] Comment on above: Result Comment: Test performed by glucose meter. Results may be 10%-15% lower than serum/plasma values. (CLIA ID [id number]) Performed By: #### P T/AP, BMP3, HEMDF #### [facility] [address] [facility] [place] [address] Glucose [Mass/Vol] 127 mg/dL High 70-100 [facility] Comment on above: Result Comment: Test performed by glucose meter. Results may be 10%-15% lower than serum/plasma values. (CLIA ID [id number]) Performed By: #### P T/AP, BMP3, HEMDF #### [facility] [employer] [facility] [address] [place] [address] Glucose [Mass/Vol] 139 mg/dL [facility] 70-100 [facility] Comment on above: Result Comment: Test performed by glucose meter. Results may be 10%-15% lower than serum/plasma values. (CLIA ID [id number]) Performed By: #### P T/AP, BMP3, HEMDF #### [facility] [employer] [facility] [address] [facility] [place] [address] Hemogram w/ Autodiffon 03-11 Abs Baso Cnt 0.0 10*3/uL Normal 0.0-0.2 [facility] Comment on above: Performed By: #### P T/AP, BMP3, HEMDF #### [facility] [address] [place] [address] Abs Neutrophile Cnt 2.9 10*3/uL Normal 1.8-7.0 [facility] Comment on above: Performed By: #### P T/AP, BMP3, HEMDF #### [facility] [address] [place] [address] Basophils/100 WBC (Bld) 0.6 % Normal 0.0-2.0 [facility] Comment on above: Performed By: #### P T/AP, BMP3, HEMDF #### [facility] [address] [place] [address] Eosinophils (Bld) [#/Vol] 0.2 10*3/uL Normal 0.0-0.5 [facility] Comment on above: Performed By: #### P T/AP, BMP3, HEMDF #### [facility] [address] [place] [address] Eosinophils/100 WBC (Bld) 5.3 % Normal 1.0-6.0 [facility] Comment on above: Performed By: #### P T/AP, BMP3, HEMDF #### [facility] [address] [place] [address] Erythrocyte distribution width (RBC) [Ratio] 13.8 % Normal 11.5-14.5 [facility] Comment on above: Performed By: #### P T/AP, BMP3, HEMDF #### [facility] [address] [place] [address] Granulocytes/100 WBC (Bld) 62.2 % Normal 40.0-80.0 [facility] Comment on above: Performed By: #### P T/AP, BMP3, HEMDF #### [facility] [address] [place] [address] Hematocrit (Bld) [Volume fraction] 32.8 % Low 35.0-47.0 [facility] Comment on above: Performed By: #### P T/AP, BMP3, HEMDF #### [facility] [address] [place] [address] Hemoglobin (Bld) [Mass/Vol] 11.7 g/dL Normal 11.7-16.0 [facility] Comment on above: Performed By: #### P T/AP, BMP3, HEMDF #### [facility] [address] [place] [address] Lymphocytes (Bld) [#/Vol] 1.0 10*3/uL Normal 1.0-4.3 [facility] Comment on above: Performed By: #### P T/AP, BMP3, HEMDF #### [facility] [address] [place] [address] Lymphocytes/100 WBC (Bld) 22.5 % Normal 20.0-40.0 [facility] Comment on above: Performed By: #### P T/AP, BMP3, HEMDF #### [facility] [address] [place] [address] MCH (RBC) [Entitic mass] 32.1 pg Normal 26.0-34.0 [facility] Comment on above: Performed By: #### P T/AP, BMP3, HEMDF #### [facility] [address] [place] [address] MCHC 35.6 % Normal 32.0-36.0 [facility] Comment on above: Performed By: #### P T/AP, BMP3, HEMDF #### [facility] [address] [place] [address] MCV (RBC) [Entitic vol] 90.2 fL Normal 79.0-98.0 [facility] Comment on above: Performed By: #### P T/AP, BMP3, HEMDF #### [facility] [address] [place] [address] Monocytes (Bld) [#/Vol] 0.4 10*3/uL Normal 0.0-0.8 [facility] Comment on above: Performed By: #### P T/AP, BMP3, HEMDF #### [facility] [address] [place] [address] Monocytes/100 WBC (Bld) 9.4 % Normal 2.0-10.0 [facility] Comment on above: Performed By: #### P T/AP, BMP3, HEMDF #### [facility] [address] [place] [address] Platelet mean volume (Bld) [Entitic vol] 8.2 fL Normal 7.4-12.4 [facility] Comment on above: Result Comment: MPV is a calculated measurement using platelet volume ratio. Performed By: #### P T/AP, BMP3, HEMDF #### [facility] [address] [place] [address] Platelets (Bld) [#/Vol] 128 10*3/uL Low 140-440 [facility] Comment on above: Performed By: #### P T/AP, BMP3, HEMDF #### [facility] [address] [place] [address] RBC (Bld) [#/Vol] 3.63 10*6/uL Low 3.80-5.20 [facility] Comment on above: Performed By: #### P T/AP, BMP3, HEMDF #### [facility] [address] [place] [address] WBC (Bld) [#/Vol] 4.6 10*3/uL Normal 3.6-10.7 [facility] Comment on above: Performed By: #### P T/AP, BMP3, HEMDF #### [facility] [address] [place] [address] POCT COVID-19, Antigenon SARS-CoV-2 Nucleocapsid Antigen Negative Negative NA [facility] Comment on above: A negative result does not rule out the possibility of SARS-CoV-2 infection. NAAT-based methods should be considered for symptomatic patients presenting greater than seven days after onset of symptoms. Method: Lateral flow immunoassay. Fact sheets for healthcare providers and patients can be found at the following sites: https://www.fda.gov/media/091097/download https://www.fda.gov/media/167963/download Test Performed by [facility], [address] [place], [place] [address] [facility] POCT GlucoseOrdered By: Pedro Luis Mcleod on 03-11-2022 Glucose [Mass/Vol] 140 mg/dL High 70 - 100 mg/dL [facility] Comment on above: Test performed by gl ucose meter. Results may be 10%-15% lower than serum/plasma values. (CLIA ID [id number]) Interpretation and review of laboratory results Abnormal [facility] POCT Glucoseon 03-11-2022 Test Performed by [facility], [address] LAB Glucose [Mass/Vol] 121 mg/dL High 70 - 100 mg/dL [facility] Work Phone: Comment on above: Test performed by gl ucose meter. Results may be 10%-15% lower than serum/plasma values. (CLIA ID [id number]) Interpretation and review of laboratory results Abnormal [facility] Work Phone: Test Performed by [facility], [address] LAB [facility] Work Phone: Test Performed by [facility], [address] LAB Glucose [Mass/Vol] 139 mg/dL High 70 - 100 mg/dL [facility] Work Phone: Comment on above: Test performed by gl ucose meter. Results may be 10%-15% lower than serum/plasma values. (CLIA ID [id number]) Interpretation and review of laboratory results Abnormal [facility] Work Phone: Test Performed by [facility], [address] LAB [facility] Work Phone: POCT GlucoseOrdered By: Mil Marie on 03-11-2022 Glucose [Mass/Vol] 127 mg/dL High 70 - 100 mg/dL [facility] Work Phone: Comment on above: Test performed by gl ucose meter. Results may be 10%-15% lower than serum/plasma values. (CLIA ID [id number]) Interpretation and review of laboratory results Abnormal [facility] Work Phone: [facility] Work Phone: PROTIME/INR & PTTon 03-11-20 22 INR Coag (Bld) [Relative time] 5.0 {INR} Critically high [facility] Comment on above: Recommended Anticoag ulant [...] laboratory results Abnormal [facility] Test Performed by [facility], [address] [place], [place] [id number] [place] [address] LAB [facility] Protime AND APTTon 2 INR 5.0 Critically high 0.9-1.1 [facility] Comment on above: Result Comment: Rajiv [...] By: #### P T/CLAIRE RENE, HEMDF #### [facility] [address] [place] [address] aPTT Coag (Bld) [Time] 44.1 s High 20.0-30.5 [facility] Comment on above: NOTE: The therapeuti c time for Heparin anticoagulation, based on Xa activity inhibition, is an APTT of 46-80 seconds. Result Comment: NOTE : The therapeutic time for Heparin anticoagulation, based on Xa activity inhibition, is an APTT of 46-80 seconds. Performed By: #### P T/AP BMPVi, HEMDF #### [facility] [address] [place] [address] PT Coag (PPP) [Time] 48.7 s High 9.0-12.0 [facility] Comment on above: . Result Comment: . Performed By: #### P T/AP, BMP3, HEMDF #### [facility] [address] [place] [address] SARS-CoV-2 Antigenon 022 SARS-CoV-2 Antigen Negative Normal Negative [facility] Comment on above: Result Comment: A negative result does not rule out the possibility of SARS-CoV-2 infection. NAAT-based methods should be considered for symptomatic patients presenting greater than seven days after onset of symptoms. Method: Lateral flow immunoassay. Fact sheets for healthcare providers and patients can be found at the following sites: https://www.fda.gov/media/660545/download https://www.[employer].gov/media/780830/download Performed By: #### P T/AP, BMP3, HEMDF #### [employer] [facility] [address] [place] [address] Glucose,Bedsideon 03-10-2022 Glucose [Mass/Vol] 137 mg/dL High 70-100 [facility] Comment on above: Result Comment: Test performed by glucose meter. Results may be 10%-15% lower than serum/plasma values. (CLIA ID [id number]) Performed By: #### P T/AP, BMP3, HEMDF #### [employer] [address] [place] [address] Glucose [Mass/Vol] 98 mg/dL Normal 70-100 [facility] Comment on above: Result Comment: Test performed by glucose meter. Results may be 10%-15% lower than serum/plasma values. (CLIA ID [id number]) Performed By: #### P T/AP, BMP3, HEMDF #### [employer] [address] [place] [address] Glucose [Mass/Vol] 143 mg/dL High 70-100 [facility] Comment on above: Result Comment: Test performed by glucose meter. Results may be 10%-15% lower than serum/plasma values. (CLIA ID [id number]) Performed By: #### B GLU #### [facility] [address] [place] [address] Glucose [Mass/Vol] 170 mg/dL High 70-100 [facility] Comment on above: Result Comment: Test performed by glucose meter. Results may be 10%-15% lower than serum/plasma values. (CLIA ID [id number]) Performed By: #### B GLU #### [facility] [address] [place] [address] POCT GlucoseOrdered By: Tristin Mayers on 03-10-2022 Glucose [Mass/Vol] 137 mg/dL High 70 - 100 mg/dL [facility] Comment on above: Test performed by gl ucose meter. Results may be 10%-15% lower than serum/plasma values. (CLIA ID [id number]) Interpretation and review of laboratory results Abnormal [facility] POCT Glucoseon 03-10-2022 Test Performed by [facility], [address] LAB Glucose [Mass/Vol] 98 mg/dL 70 - 100 mg/dL [facility] Work Phone: Comment on above: Test performed by gl ucose meter. Results may be 10%-15% lower than serum/plasma values. (CLIA ID [id number]) Test Performed by [facility], [address] LAB [facility] Work Phone: Test Performed by [facility], [address] LAB Glucose [Mass/Vol] 170 mg/dL High 70 - 100 mg/dL [facility] Work Phone: Comment on above: Test performed by gl ucose meter. Results may be 10%-15% lower than serum/plasma values. (CLIA ID [id number]) Interpretation and review of laboratory results Abnormal [facility] Work Phone: Test Performed by [facility], [address] LAB [facility] Work Phone: POCT GlucoseOrdered By: Mil Benitez on 03-10-2022 Glucose [Mass/Vol] 143 mg/dL High 70 - 100 mg/dL [facility] Work Phone: Comment on above: Test performed by gl ucose meter. Results may be 10%-15% lower than serum/plasma values. (CLIA ID [id number]) Interpretation and review of laboratory results Abnormal [facility] Work Phone: [facility] Work Phone: PROTIME/INR & PTTon 03-10-20 22 aPTT Coag (Bld) [Time] 40.6 s High 20 - 30.5 s [facility] Comment on above: NOTE: The therapeuti c time for Heparin anticoagulation, based on Xa activity inhibition, is an APTT of 46-80 seconds. INR Coag (Bld) [Relative time] 3.4 {INR} High [facility] Comment on above: Recommended Anticoag ulant [...] Interpretation and review of laboratory results Abnormal [facility] PT Coag (PPP) [Time] 34 s High 9 - 12 s [facility] Comment on above: . Test Performed by [facility], [address], [place], [place] [id number] [place] [address] LAB [facility] Protime AND APTTon 2 aPTT Coag (Bld) [Time] 40.6 s High 20.0-30.5 [facility] Comment on above: Result Comment: NOTE : The therapeutic time for Heparin anticoagulation, based on Xa activity inhibition, is an APTT of 46-80 seconds. Performed By: #### P T/AP, BMP3, HEMDF #### [facility] [address] [place] [address] INR 3.4 High 0.9-1.1 [facility] Comment on above: Result Comment: Rajiv [...] P T/AP, BMP3, HEMDF #### [facility] [address] [place] [address] PT Coag (PPP) [Time] 34.0 s High 9.0-12.0 [facility] Comment on above: Result Comment: . Performed By: #### P T/AP, BMP3, HEMDF #### [facility] [address] [place] [address] Basic Metabolic Panelon 02-20 Anion gap [Moles/Vol] 4 mmol/L Normal 3-13 [facility] Comment on above: Performed By: #### P T/AP, BMP3, HEMDF #### [facility] [address] [place] [address] Calcium [Mass/Vol] 7.7 mg/dL Low 8.4-10.4 [facility] Comment on above: Performed By: #### P T/AP, BMP3, HEMDF #### [facility] [address] [place] [address] CO2 [Moles/Vol] 25 mmol/L Normal 22-30 [facility] Comment on above: Performed By: #### P T/AP, BMP3, HEMDF #### [facility] [address] [place] [address] Glucose [Mass/Vol] 84 mg/dL Normal 70-100 [facility] Comment on above: Performed By: #### P T/AP, BMP3, HEMDF #### [facility] [address] [place] [address] Urea nitrogen [Mass/Vol] 14 mg/dL Normal 9-20 [facility] Comment on above: Performed By: #### P T/AP, BMP3, HEMDF #### [place] [address] [place] [address] Creatinine [Mass/Vol] 0.85 mg/dL Normal 0.52-1.25 [facility] Comment on above: Performed By: #### P T/AP, BMP3, HEMDF #### [facility] [address] [place] [address] GFR/1.73 sq M.predicted among blacks MDRD (S/P/Bld) [Vol rate/Area] 80.1 mL/min/{1.73_m2} Normal >60 [facility] Comment on above: Performed By: #### P T/AP, BMP3, HEMDF #### [facility] [address] [place] [address] GFR/1.73 sq M.predicted among non-blacks MDRD (S/P/Bld) [Vol rate/Area] 69.1 mL/min/{1.73_m2} Normal >60 [facility] Comment on above: Result Comment: KDIG [...] P T/AP, BMP3, HEMDF #### [facility] [address] [place] [address] Chloride [Moles/Vol] 106 mmol/L Normal 98-107 [facility] Comment on above: Performed By: #### P T/AP, BMP3, HEMDF #### [facility] [address] [place] [address] Potassium [Moles/Vol] 3.9 mmol/L Normal 3.5-5.1 [facility] Comment on above: Performed By: #### P T/AP, BMP3, HEMDF #### [facility] [address] [place] [address] Sodium [Moles/Vol] 135 mmol/L Normal 135-145 [facility] Comment on above: Performed By: #### P T/AP, BMP3, HEMDF #### [facility] [address] [place] [address] Basic Metabolic Panel w/ Ref uriel to MGon 03-09-2022 Anion gap [Moles/Vol] 4 mmol/L 3 - 13 mmol/L [facility] Calcium [Mass/Vol] 7.7 mg/dL Low 8.4 - 10. 4 mg/dL [facility] Chloride [Moles/Vol] 106 mmol/L 98 - 10 7 mmol/L [facility] CO2 [Moles/Vol] 25 mmol/L 22 - 30 mmol/L [facility] Creatinine [Mass/Vol] 0.85 mg/dL 0.52 - 1.25 mg/dL [facility] EGFR IF NonAfrican Norwegian 69.1 mL/min 60 - PINF mL/min [facility] Comment on above: KDIGO guidelines pro [...] - 20 mg/dL [facility] Test Performed by [facility], [address] [place], [place] [id number] [place] [address] LAB [facility] CBC with Auto Differentialon 03-09-2022 [...] 11.2 g/dL Low 11.7 - 16 g/dL [facility] Interpretation and review of laboratory results [...] vol] 8.4 fL 7.4 - 12.4 fL [facility] Comment on above: MPV is a calculated measurement using platelet volume ratio. Platelets (Bld) [#/Vol] 102 10*3/uL Low 140 - 440 10*3/uL [facility] RBC (Bld) [#/Vol] 3.48 10*6/uL Low 3.8 - 5.2 10*6/uL [facility] WBC (Bld) [#/Vol] 5.5 10*3/uL 3.6 - 10.7 10*3/uL [facility] Test Performed by [facility], [address] [place], [place] [id number] [place] [address] LAB [facility] Glucose,Bedsideon 03-09-2022 Glucose [Mass/Vol] 186 mg/dL High 70-100 [facility] Comment on above: Result Comment: Test performed by glucose meter. Results may be 10%-15% lower than serum/plasma values. (CLIA ID [id number]) Performed By: #### P T/AP, BMP3, HEMDF #### [facility] [address] [place] [address] Glucose [Mass/Vol] 139 mg/dL High 70-100 [facility] Comment on above: Result Comment: Test performed by glucose meter. Results may be 10%-15% lower than serum/plasma values. (CLIA ID [id number]) Performed By: #### P T/AP, BMP3, HEMDF #### [facility] [address] [place] [address] Glucose [Mass/Vol] 160 mg/dL High 70-100 [facility] Comment on above: Result Comment: Test performed by glucose meter. Results may be 10%-15% lower than serum/plasma values. (CLIA ID [id number]) Performed By: #### P T/AP, BMP3, HEMDF #### [facility] [address] [place] [address] Glucose [Mass/Vol] 96 mg/dL Normal 70-[address] [place] [address] Comment on above: Result Comment: Test performed by glucose meter. Results may be 10%-15% lower than serum/plasma values. (CLIA ID [id number]) Performed By: #### B GLU #### [facility] [address] [place] [address] Hemoglobin A1Con 03-09-2022 Glucose [Mass/Vol] 151 mg/dL Normal [facility] Comment on above: Performed By: #### B GLU #### [facility] [address] [place] [address] HbA1c (Bld) [Mass fraction] 6.9 % Abnormal [facility] Comment on above: Result Comment: Norm al less than 5.7% Prediabetes 5.7% to 6.4% Diabetes 6.5% or higher --HgbA1C levels may not be accurate in patients who have renal disease, received recent blood transfusions, are anemic, or who have dyshemoglobinemia. Performed By: #### B GLU #### [facility] [address] [place] [address] Hemoglobin A1con 03-09-2022 HbA1c (Bld) [Mass fraction] 6.9 % Abnormal [facility] Comment on above: Normal less than 5.7 % Prediabetes 5.7% to 6.4% Diabetes 6.5% or higher --HgbA1C levels may not be accurate in patients who have renal disease, received recent blood transfusions, are anemic, or who have dyshemoglobinemia. Interpretation and review of laboratory results Abnormal [facility] Magnesium [Mass/Vol] 151 mg/dL [facility] Test Performed by [facility], [address] [place], [place] [address] [facility] LAB [facility] Hemogram w/ Autodiffon 03-09 Abs Baso Cnt 0.0 10*3/uL Normal 0.0-0.2 [facility] Comment on above: Performed By: #### P T/AP, BMP3, HEMDF #### [facility] [address] [place] [address] Abs Neutrophile Cnt 4.1 10*3/uL Normal 1.8-7.0 [facility] Comment on above: Performed By: #### P T/AP, BMP3, HEMDF #### [facility] [address] [place] [address] Basophils/100 WBC (Bld) 0.6 % Normal 0.0-2.0 [facility] Comment on above: Performed By: #### P T/AP, BMP3, HEMDF #### [facility] [address] [place] [address] Eosinophils (Bld) [#/Vol] 0.1 10*3/uL Normal 0.0-0.5 [facility] Comment on above: Performed By: #### P T/AP, BMP3, HEMDF #### [facility] [address] [place] [address] Eosinophils/100 WBC (Bld) 1.6 % Normal 1.0-6.0 [facility] Comment on above: Performed By: #### P T/AP, BMP3, HEMDF #### [facility] [address] [place] [address] Erythrocyte distribution width (RBC) [Ratio] 13.9 % Normal 11.5-14.5 [facility] Comment on above: Performed By: #### P T/AP, BMP3, HEMDF #### [facility] [address] [place] [address] Granulocytes/100 WBC (Bld) 74.6 % Normal 40.0-80.0 [facility] Comment on above: Performed By: #### P T/AP, BMP3, HEMDF #### [facility] [address] [place] [address] Hematocrit (Bld) [Volume fraction] 31.8 % Low 35.0-47.0 [facility] Comment on above: Performed By: #### P T/AP, BMP3, HEMDF #### [facility] [address] [place] [address] Hemoglobin (Bld) [Mass/Vol] 11.2 g/dL Low 11.7-16.0 [facility] Comment on above: Performed By: #### P T/AP, BMP3, HEMDF #### [facility] [address] [place] [address] Lymphocytes (Bld) [#/Vol] 0.9 10*3/uL Low 1.0-4.3 [facility] Comment on above: Performed By: #### P T/AP, BMP3, HEMDF #### [facility] [address] [place] [address] Lymphocytes/100 WBC (Bld) 16.3 % Low 20.0-40.0 [facility] Comment on above: Performed By: #### P T/AP, BMP3, HEMDF #### [facility] [address] [place] [address] MCH (RBC) [Entitic mass] 32.2 pg Normal 26.0-34.0 [facility] Comment on above: Performed By: #### P T/AP, BMP3, HEMDF #### [facility] [address] [place] [address] MCHC 35.2 % Normal 32.0-36.0 [facility] Comment on above: Performed By: #### P T/AP, BMP3, HEMDF #### [facility] [address] [place] [address] MCV (RBC) [Entitic vol] 91.4 fL Normal 79.0-98.0 [facility] Comment on above: Performed By: #### P T/AP, BMP3, HEMDF #### [facility] [address] [place] [address] Monocytes (Bld) [#/Vol] 0.4 10*3/uL Normal 0.0-0.8 [facility] Comment on above: Performed By: #### P T/AP, BMP3, HEMDF #### [facility] [address] [place] [address] Monocytes/100 WBC (Bld) 6.9 % Normal 2.0-10.0 [facility] Comment on above: Performed By: #### P T/AP, BMP3, HEMDF #### [facility] [address] [place] [address] Platelet mean volume (Bld) [Entitic vol] 8.4 fL Normal 7.4-12.4 [facility] Comment on above: Result Comment: MPV is a calculated measurement using platelet volume ratio. Performed By: #### P T/AP, BMP3, HEMDF #### [facility] [address] [place] [address] Platelets (Bld) [#/Vol] 102 10*3/uL Low 140-440 [facility] Comment on above: Performed By: #### P T/AP, BMP3, HEMDF #### [facility] [address] [place] [address] RBC (Bld) [#/Vol] 3.48 10*6/uL Low 3.80-5.20 [facility] Comment on above: Performed By: #### P T/AP, BMP3, HEMDF #### [facility] [address] [place] [address] WBC (Bld) [#/Vol] 5.5 10*3/uL Normal 3.6-10.7 [facility] Comment on above: Performed By: #### P T/AP, BMP3, HEMDF #### [facility] [address] [place] [address] POCT GlucoseOrdered By: Blayne Villalobos on 03-09-2022 Glucose [Mass/Vol] 186 mg/dL High 70 - 100 mg/dL [facility] Work Phone: Comment on above: Test performed by gl ucose meter. Results may be 10%-15% lower than serum/plasma values. (CLIA ID [id number]) Interpretation and review of laboratory results Abnormal [facility] Work Phone: [facility] Work Phone: POCT Glucoseon 03-09-2022 Test Performed by [facility], [address] LAB Glucose [Mass/Vol] 139 mg/dL High 70 - 100 mg/dL [facility] Work Phone: Comment on above: Test performed by gl ucose meter. Results may be 10%-15% lower than serum/plasma values. (CLIA ID [id number]) Interpretation and review of laboratory results Abnormal [facility] Work Phone: Test Performed by [facility], [address] LAB [facility] Work Phone: Test Performed by [facility], [address] [place], [place], [place] [id number] [place] [address] LAB Glucose [Mass/Vol] 96 mg/dL 70 - 100 mg/dL [facility] Work Phone: Comment on above: Test performed by gl ucose meter. Results may be 10%-15% lower than serum/plasma values. (CLIA ID [id number]) Test Performed by [facility], [address] [place], [address] LAB [facility] Work Phone: POCT GlucoseOrdered By: Ines Choi on 03-09-2022 Glucose [Mass/Vol] 160 mg/dL High 70 - 100 mg/dL [facility] Comment on above: Test performed by gl ucose meter. Results may be 10%-15% lower than serum/plasma values. (CLIA ID [id number]) Interpretation and review of laboratory results Abnormal [facility] PROTIME/INR & PTTon 03-09-20 22 aPTT [...] Interpretation and review of laboratory results Abnormal [facility] PT Coag (PPP) [Time] 24.5 s High 9 - 12 s [facility] Comment on above: . Test Performed by [facility], [address] [place], [address] LAB [facility] Protime AND APTTon 2 aPTT Coag (Bld) [Time] 40.6 s High 20.0-30.5 [facility] Comment on above: Result Comment: NOTE : The therapeutic time for Heparin anticoagulation, based on Xa activity inhibition, is an APTT of 46-80 seconds. Performed By: #### P T/CLAIRE RENE, HEMDF #### [address] [place] [address] INR 2.4 High 0.9-1.1 [facility] Comment on above: Result Comment: Rajiv [...] prevent Myocardial Infarction Performed By: #### P Sourav/CLAIRE RENE, HEMDF #### [address] [place] [address] PT Coag (PPP) [Time] 24.5 s High 9.0-12.0 [facility] Comment on above: Result Comment: . Performed By: #### P Sourav/CLAIRE RENE, HEMDF #### [place] [address] TSHon 03-09-2022 TSH Qn 3.493 u[IU]/mL 0.465 - 4.68 u[IU]/mL [facility] Test Performed by [facility], [address] [place] [address]. [address] LAB [facility] Thyroid Stim. Hormoneon 02-20 Thyroid Stim. Hormone 3.493 u[IU]/mL Normal 0.46 5-4.68 0 [facility] Comment on above: Performed By: #### B GLU #### [place] [address] Vancomycinon 03-09-2022 Vancomycin 12.3 ug/mL Low 15.0-20.0 [facility] Comment on above: Result Comment: . Performed By: #### P T/ANJU BMP3, HEMDF #### [facility] [address] [place] [address] Vancomycin Level, Randomon 0 03-09-2022 Interpretation and review of laboratory results Abnormal [facility] Vancomycin 12.3 ug/mL Low 15 - 20 ug/mL [facility] Comment on above: . Test Performed by [facility], [address] [place], [place] [address] [facility] Basic Metabolic Panelon - Anion gap [Moles/Vol] 4 mmol/L Normal 3-13 [facility] Comment on above: Performed By: #### P T/AP, BMP3, HEMDF #### [facility] [address] [place] [address] Calcium [Mass/Vol] 8.4 mg/dL Normal 8.4-10.4 [facility] Comment on above: Performed By: #### P T/AP, BMP3, HEMDF #### [facility] [address] [place] [address] CO2 [Moles/Vol] 27 mmol/L Normal 22-30 [facility] Comment on above: Performed By: #### P T/AP, BMP3, HEMDF #### [facility] [address] [place] [address] Creatinine [Mass/Vol] 0.95 mg/dL Normal 0.52-1.25 [facility] Comment on above: Performed By: #### P T/AP, BMP3, HEMDF #### [facility] [address] [place] [address] GFR/1.73 sq M.predicted among blacks MDRD (S/P/Bld) [Vol rate/Area] 70.0 mL/min/{1.73_m2} Normal >60 [facility] Comment on above: Performed By: #### P T/AP, BMP3, HEMDF #### [facility] [address] [place] [address] GFR/1.73 sq M.predicted among non-blacks MDRD (S/P/Bld) [Vol rate/Area] 60.4 mL/min/{1.73_m2} Normal >60 [facility] Comment on above: Result Comment: KDIG [...] P T/AP, BMP3, HEMDF #### [facility] [address] [place] [address] Glucose [Mass/Vol] 117 mg/dL High 70-100 [facility] Comment on above: Performed By: #### P T/AP, BMP3, HEMDF #### [facility] [address] [place] [address] Urea nitrogen [Mass/Vol] 16 mg/dL Normal 9-20 [facility] Comment on above: Performed By: #### P T/AP, BMP3, HEMDF #### [facility] [address] [place] [address] Chloride [Moles/Vol] 102 mmol/L Normal 98-107 [facility] Comment on above: Performed By: #### P T/AP, BMP3, HEMDF #### [facility] [address] [place] [address] Potassium [Moles/Vol] 4.5 mmol/L Normal 3.5-5.1 [facility] Comment on above: Performed By: #### P T/AP, BMP3, HEMDF #### [facility] [address] [place] [address] Sodium [Moles/Vol] 133 mmol/L Low 135-145 [facility] Comment on above: Performed By: #### P T/AP, BMP3, HEMDF #### [facility] [address] [place] [address] Anion gap [Moles/Vol] 4 mmol/L 3 - 13 mmol/L [facility] Calcium [Mass/Vol] 8.4 mg/dL 8.4 - 10. 4 mg/dL [facility] Chloride [Moles/Vol] 102 mmol/L 98 - 10 7 mmol/L [facility] CO2 [Moles/Vol] 27 mmol/L 22 - 30 mmol/L [facility] Creatinine [Mass/Vol] 0.95 mg/dL 0.52 - 1.25 mg/dL [facility] EGFR IF NonAfrican [place] 60.4 mL/min 60 - PINF mL/min [facility] [...] - 20 mg/dL [facility] Test Performed by [facility], [address] [place], [place] [address] [facility] CBC with Auto Differentialon [...] - 10.7 10*3/uL [facility] Test Performed by [facility], [address], [place], [place] [address] [facility] CR Ankle 3+ Views Lefton CR Ankle 3+ Views Left Patient Name: RANDOLPH HUNTER Diagnostic Radiology ACCESSION EXAM DATE/TIME PROCEDURE ORDERING PROVIDER [id number] 03/08/2022 16:53 EDT CR Ankle 3+ Views Left JOHN LEZAMA LOUANN B CPT code 33526 Reason For Exam (CR Ankle 3+ Views [...] arterial atherosclerotic changes. Report Dictated on Workstation: [employer] Final Dictating Physician: HARPER ANTONIO DO, I Signed Date and Time: 03/08/2022 5:15 pm Signed by: HARPER ANTONIO DO, I Transcribed Date and Time: 03/08/2022 5:16 Normal [facility] Complete Urinalysison 2021 Appearance (U) Turbid Abnormal Clear [facility] Comment on above: Result Comment: . Performed By: #### P T/AP, BMP3, HEMDF #### [facility] [address] [place] [address] Bacteria Loaded Abnormal Negative [facility] Comment on above: Result Comment: . Performed By: #### P T/AP, BMP3, HEMDF #### [facility] [address] [place] [address] Bilirubin,Urine Negative Normal Negative [facility] Comment on above: Result Comment: . Performed By: #### P T/AP, BMP3, HEMDF #### [facility] [address] [place] [address] Color (U) Light-Yellow Normal Lt. Yellow [facility] Comment on above: Result Comment: . Performed By: #### P T/AP, BMP3, HEMDF #### [facility] [address] [place] [address] Glucose Ql (U) Normal Normal Normal (<70) [facility] Comment on above: Result Comment: . Performed By: #### P T/AP, BMP3, HEMDF #### [facility] [address] [place] [address] Ketone,Urine Negative Normal Negative [facility] Comment on above: Result Comment: . Performed By: #### P T/AP, BMP3, HEMDF #### [facility] [address] [place] [address] Leukocytes,Urine 500 Elvi/uL Abnormal Negative [facility] Comment on above: Result Comment: . Performed By: #### P T/AP, BMP3, HEMDF #### [facility] [address] [place] [address] Mucous Threads Few Normal Negative [facility] Comment on above: Result Comment: . Performed By: #### P T/AP, BMP3, HEMDF #### [facility] [address] [place] [address] Nitrites,Urine Positive Abnormal Negative [facility] Comment on above: Result Comment: . Performed By: #### P T/AP, BMP3, HEMDF #### [facility] [address] [place] [address] Non-Squamous Epithelial < 1 Abnormal Negative [facility] Comment on above: Result Comment: . Performed By: #### P T/AP, BMP3, HEMDF #### [facility] [address] [place] [address] Occult Blood,Urine 0.06 mg/dL Abnormal Negative [facility] Comment on above: Result Comment: . Performed By: #### P T/AP, BMP3, HEMDF #### [facility] [address] [place] [address] pH,Urine 6.0 Normal 5.0-8.0 [facility] Comment on above: Result Comment: . Performed By: #### P T/AP, BMP3, HEMDF #### [facility] [address] [place] [address] Protein (U) [Mass/Vol] 20 mg/dL Abnormal Negative [facility] [employer] [facility] Comment on above: Result Comment: . Performed By: #### P T/AP, BMP3, HEMDF #### [facility] [employer] [facility] [address] [place] [address] RBC, Urine 3 - 5 Abnormal 0-2 [facility] Comment on above: Result Comment: . Performed By: #### P T/AP, BMP3, HEMDF #### [facility] [address] [place] [address] Specific [place],Urine 1.014 Normal 1.005 - 1.030 [facility] [employer] [facility] Comment on above: Result Comment: . Performed By: #### P T/AP, BMP3, HEMDF #### [facility] [employer] [facility] [address] [place] [address] Squamous Epithelial 0 - 2 Normal 3-5 [facility] Comment on above: Result Comment: . Performed By: #### P T/AP, BMP3, HEMDF #### [facility] [address] [place] [address] Urobilinogen,Urine Normal Normal Normal (0-1) [facility] Comment on above: Result Comment: . Performed By: #### P T/AP, BMP3, HEMDF #### [facility] [employer] [facility] [address] [place] [address] WBC, Urine 51 - 100 Abnormal 0-5 [facility] Comment on above: Result Comment: . Performed By: #### P T/AP, BMP3, HEMDF #### [facility] [employer] [facility] [address] [place] [address] ED Provider Noteon 2 ED Provider Note SHB 1E MED SURG EMERGENCY DEPARTMENT ENCOUNTER Pt Name: Randolph Hunter Birthdate 1950 Date of evaluation: 03/08/2022 Provider: Александр hJa MD CHIEF COMPLAINT Chief Complaint Patient presents [...] she did have a fall at her skilled nursing this morning but did not hit her [...] mouth daily CALCIUM CARBONATE 600MG W/ VITAMIN [id number] Med cyanocobalamin 1000 MCG/ML injection Inject 1,000 [...] use: Never Sexual activity: Not Currently SCREENINGS [place] Coma Scale Eye Opening: Spontaneous Best Verbal Response: Oriented Best Motor Response: Obeys commands [place] Coma Scale Score: 15 PHYSICAL EXAM (up to 7 for level 4, 8 or more for level 5) ED Triage Vitals BP Temp Temp Source Heart Rate Resp SpO2 Height Weight 03/08/22 1149 03/08/22 1149 03/08/22 1149 03/08/22 1149 03/08/22 1149 03/08/22 1149 03/08/22201403/08/22 1149 (!) 93/56 99.3 ?F (37.4 ?C) Oral 78 18 95 % 5' 5 (1.651 m) 213 lb (96.6 kg) Physical Exam Kaycee (more content not included)... Normal [facility] Glucose,Bedsideon 03-08-2022 Glucose [Mass/Vol] 112 mg/dL High 70-100 [facility] Comment on above: Result Comment: Test performed by glucose meter. Results may be 10%-15% lower than serum/plasma values. (CLIA ID [id number]) Performed By: #### P T/AP, BMP3, HEMDF #### [facility] [address] [facility] [place] [address] Glucose [Mass/Vol] 81 mg/dL Normal 70-100 [facility] Comment on above: Result Comment: Test performed by glucose meter. Results may be 10%-15% lower than serum/plasma values. (CLIA ID [id number]) Performed By: #### P T/AP, BMP3, HEMDF #### [facility] [address] [place] [address] Hemogram w/ Autodiffon 03-08 Abs Baso Cnt 0.0 10*3/uL Normal 0.0-0.2 [facility] Comment on above: Performed By: #### P T/AP, BMP3, HEMDF #### [facility] [address] [facility] [place] [address] Abs Neutrophile Cnt 7.5 10*3/uL High 1.8-7.0 [facility] Comment on above: Performed By: #### P T/AP, BMP3, HEMDF #### [facility] [address] [facility] [place] [address] Basophils/100 WBC (Bld) 0.1 % Normal 0.0-2.0 [facility] Comment on above: Performed By: #### P T/AP, BMP3, HEMDF #### [facility] [address] [facility] [place] [address] Eosinophils (Bld) [#/Vol] 0.0 10*3/uL Normal 0.0-0.5 [facility] Comment on above: Performed By: #### P T/AP, BMP3, HEMDF #### [facility] [address] [place] [address] Eosinophils/100 WBC (Bld) 0.2 % Low 1.0-6.0 [facility] Comment on above: Performed By: #### P T/AP, BMP3, HEMDF #### [facility] [address] [place] [address] Erythrocyte distribution width (RBC) [Ratio] 14.1 % Normal 11.5-14.5 [facility] Comment on above: Performed By: #### P T/AP, BMP3, HEMDF #### [facility] [address] [place] [address] Granulocytes/100 WBC (Bld) 86.4 % High 40.0-80.0 [facility] Comment on above: Performed By: #### P T/AP, BMP3, HEMDF #### [facility] [address] [place] [address] Hematocrit (Bld) [Volume fraction] 36.9 % Normal 35.0-47.0 [facility] Comment on above: Performed By: #### P T/AP, BMP3, HEMDF #### [facility] [address] [place] [address] Hemoglobin (Bld) [Mass/Vol] 12.6 g/dL Normal 11.7-16.0 [facility] Comment on above: Performed By: #### P T/AP, BMP3, HEMDF #### [facility] [address] [place] [address] Lymphocytes (Bld) [#/Vol] 0.7 10*3/uL Low 1.0-4.3 [facility] Comment on above: Performed By: #### P T/AP, BMP3, HEMDF #### [facility] [address] [place] [address] Lymphocytes/100 WBC (Bld) 8.3 % Low 20.0-40.0 [facility] Comment on above: Performed By: #### P T/AP, BMP3, HEMDF #### [facility] [address] [place] [address] MCH (RBC) [Entitic mass] 31.9 pg Normal 26.0-34.0 [facility] Comment on above: Performed By: #### P T/AP, BMP3, HEMDF #### [facility] [address] [place] [address] MCHC 34.3 % Normal 32.0-36.0 [facility] Comment on above: Performed By: #### P T/AP, BMP3, HEMDF #### [facility] [address] [place] [address] MCV (RBC) [Entitic vol] 93.2 fL Normal 79.0-98.0 [facility] Comment on above: Performed By: #### P T/AP, BMP3, HEMDF #### [facility] [address] [place] [address] Monocytes (Bld) [#/Vol] 0.4 10*3/uL Normal 0.0-0.8 [facility] Comment on above: Performed By: #### P T/AP, BMP3, HEMDF #### [facility] [address] [place] [address] Monocytes/100 WBC (Bld) 5.0 % Normal 2.0-10.0 [facility] Comment on above: Performed By: #### P T/AP, BMP3, HEMDF #### [facility] [address] [place] [address] Platelet mean volume (Bld) [Entitic vol] 8.9 fL Normal 7.4-12.4 [facility] Comment on above: Result Comment: MPV is a calculated measurement using platelet volume ratio. Performed By: #### P T/AP, BMP3, HEMDF #### [facility] [address] [place] [address] Platelets (Bld) [#/Vol] 132 10*3/uL Low 140-440 [facility] Comment on above: Performed By: #### P T/AP, BMP3, HEMDF #### [facility] [address] [place] [address] RBC (Bld) [#/Vol] 3.96 10*6/uL Normal 3.80-5.20 [facility] Comment on above: Performed By: #### P T/AP, BMP3, HEMDF #### [facility] [address] [place] [address] WBC (Bld) [#/Vol] 8.7 10*3/uL Normal 3.6-10.7 [facility] Comment on above: Performed By: #### P T/AP, BMP3, HEMDF #### [facility] [address] [place] [address] Lactate, Sepsison 03-08-2022 Lactate [Moles/Vol] 1.7 mmol/L 0.7 - 2 mmol/L [facility], [address] [place], [place] [id number] [place] [address] LAB [facility] Lactic Acid, Sepsison 2021 Lactate [Moles/Vol] 1.7 mmol/L Normal 0.7-2.0 [facility] Comment on above: Performed By: #### P T/AP, BMP3, HEMDF #### [facility] [address] [place] [address] POCT GlucoseOrdered By: Jossy Moncada on 03-08-2022 Glucose [Mass/Vol] 112 mg/dL High 70 - 100 mg/dL [facility] Work Phone: Comment on above: Test performed by gl ucose meter. Results may be 10%-15% lower than serum/plasma values. (CLIA ID [id number]) Interpretation and review of laboratory results Abnormal [facility] Work Phone: [facility] Work Phone: POCT Glucoseon 03-08-2022 Test Performed by [facility], [address] [place], [place] [id number] [place] [address] LAB Test Performed by [facility], [address] LAB POCT GlucoseOrdered By: Yaakov Whitehead on 03-08-2022 Glucose [Mass/Vol] 81 mg/dL 70 - 100 mg/dL [facility] Work Phone: Comment on above: Test performed by gl ucose meter. Results may be 10%-15% lower than serum/plasma values. (CLIA ID [id number]) [facility] Work Phone: Prothrombin Timeon 2 INR 2.3 High 0.9-1.1 [facility] Comment on above: Result Comment: Rajiv [...] P T/AP, BMP3, HEMDF #### [facility] [address] [place] [address] PT Coag (PPP) [Time] 23.8 s High 9.0-12.0 [facility] Comment on above: Result Comment: . Performed By: #### P T/AP, BMP3, HEMDF #### [facility] [address] [place] [address] Protime-INRon 03-08-2022 INR Coag (Bld) [Relative time] 2.3 {INR} High [facility] Comment on above: Recommended Anticoag ulant [...] Interpretation and review of laboratory results Abnormal [facility] PT Coag (PPP) [Time] 23.8 s High 9 - 12 s [facility] Comment on above: . Test Performed by [facility], [address] [place], [place] [address] [facility] LAB [facility] Urinalysison 03-08-2022 Appearance (U) Turbid Abnormal Clear NA [facility] Comment on above: . Bacteria, UA Loaded [...] /[HPF] [facility] Comment on above: . Specific [place], Urine 1.014 [facility] Comment on above: . Squam Epithel, UA 0-2 3 - 5 /[HPF] [facility] Comment on above: . Urobilinogen, Urine Normal Normal (0-1) mg/dL [facility] Comment on above: . WBC, UA /[HPF] Abnormal 0 - 5 /[HPF] [facility] Comment on above: . Test Performed by [facility], [address] [place], [place] [id number] [place] [address] LAB [facility] XR ANKLE LEFT (MIN 3 VIEWS)o n 03-08-2022 Patient Name: RANDOLPH HUNTER Diagnostic Radiology ACCESSION EXAM DATE/TIME PROCEDURE ORDERING PROVIDER [id number] 03/08/2022 16:53 EDT CR Ankle 3+ Views Left JOHN LEZAMA LOUANN B CPT code 66437 Reason For Exam (CR Ankle 3+ Views [...] Radiology ACCESSION EXAM DATE/TIME PROCEDURE ORDERING PROVIDER [id number] 03/08/2022 16:53 EDT CR Ankle 3+ Views Left JOHN LEZAMA LOUANN B CPT code 83928 Reason For Exam (CR Ankle 3+ Views [...] I Transcribed Date and Time: 03/08/2022 5:16 [facility] Work Phone: Radiology Study observation (narrative) [facility] Work Phone: XR ANKLE LEFT (MIN 3 VIEWS)O rdered By: Harper Antonio on 03-08-2022 [facility] Work Phone: PT panel Coag (PPP)on 2021 INR Coag (Bld) [Relative time] 2.3 (EXT) 2.0 - 3.0 [facility] INRon 10-29-2021 INR Coag (Bld) [Relative time] [facility] PT panel Coag (PPP)on 2021 INR Coag (Bld) [Relative time] 2.1 {INR} [facility] DXA-AXIAL SKELETONon 022 [facility] PT panel Coag (PPP)on 2021 INR Coag (Bld) [Relative time] 2.1(EXT) 2.0 - 3.0 [facility] PT panel Coag (PPP)on 2021 INR Coag (Bld) [Relative time] 2.6(EXT) 2.0 - 3.0 [facility] PT panel Coag (PPP)on 2021 INR Coag (Bld) [Relative time] 2.2 (ext) [facility] Basophil percentageon 2021 Bilirubin [Mass/Vol] 0.40 mg/dL 0.20-1.00 [facility] Work Phone: Comment on above: For patients on eltr ombopag therapy, use of Dimension [place] TBIL is not recommended. Cholesterol [Mass/Vol] 142 mg/dL <200 [facility] Comment on above: <200 mg/dL Desirable 200-240 mg/dL Borderline >240 mg/dL High Risk Protein [Mass/Vol] 7.5 g/dL 6.4-8.2 [place] [facility] Work Phone: Triglyceride [Mass/Vol] 156 mg/dL [facility] Comment on above: The drugs N-Acetylcy steine and Metamizole may falsely depress this assay.Serum Triglycerides Reference Interval Normal <150 mg/dL Borderline high 150 - 199 mg/dL High 200 - 499 mg/dL Very High > or = 500 mg/dL Direct bilirubinon Bilirubin.direct [Mass/Vol] 0.12 mg/dL 0.00-0.30 [facility] Work Phone: LIPID PANEL (EXTERNAL)on HDC-L 41 mg/dL 41 mg/dL [facility] LDL Chol, calculated 31 MG/DL 130 MG/DL [facility] - Chemistry and C hemistry - challengeon 09-16-2021 ALP [Catalytic activity/Vol] 58 U/L 45-117 [facility] Work Phone: ALT [Catalytic activity/Vol] 18 U/L 13-56 [facility] Work Phone: Globulin (S) [Mass/Vol] 4.1 g/dL 2.2-4.2 [facility] Work Phone: MICROALBUMIN/CREATININE UR W RATIO (EXTERNAL)on 09-16-2021 Albumin/Creat Ratio 9.4 [facility] Creatinine Urine [address] [facility] Microalbumin, Random urine 14.9 [facility] No Panel Informationon 09-16 Urine Microalbumin/Creatini ne Ratio 9.4 mg/g CRE <30 [facility] Work Phone: Serum or plasma albumin aura urement (mass/volume)on 09-16-2021 Albumin [Mass/Vol] 3.4 g/dL 3.2-5.0 [place] [facility] Work Phone: Serum or plasma cholesterol in HDL measurement (mass/volume)on 09-16-2021 Cholesterol in HDL [Mass/Vol] 41 mg/dL [facility] Work Phone: Comment on above: The drugs N-Acetylcy steine and Metamizole may falsely depress this assay. Reference Range HDL <40 mg/dL Low HDL Cholesterol HDL >or= 60 mg/dL High HDL Cholesterol Serum or plasma cholesterol in VLDL measurement (mass/volume)on 09-16-2021 Cholesterol in VLDL [Mass/Vol] 31 mg/dL 5-40 [facility] Work Phone: Serum or plasma low density lipoprotein (LDL) cholesterol measurement (mass/volume)on 09-16-2021 Cholesterol in LDL [Mass/Vol] 70 mg/dL 0-130 [facility] Work Phone: Thin prep Papanicolaou smear with manual screeningon 09-16-2021 Thin prep Papanicolaou smear with manual screening 22 U/L 15-37 [facility] Work Phone: Thin prep Papanicolaou smear with manual screening 14.9 mg/L NO RANGE EST. [facility] Work Phone: Urine creatinine measurement (mass/volume)on 09-16-2021 Creatinine (U) [Mass/Vol] 158.00 mg/dL NO RANGE EST. [facility] Work Phone: PT panel Coag (PPP)on 2021 INR Coag (Bld) [Relative time] 1.9 (EXT) 2.0 - 3.0 [facility] XR Shoulder - right 3 Viewso n 01-29-2021 IMPRESSION: 1. Stable mild acromioclavicular degenerative changes. 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 DIVISION OF RADIOLOGY Provider, [facility] - 01/29/2021 * * *Final Report* [...] IMPRESSION: 1. Stable mild acromioclavicular degenerative changes. 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 Date/Time: Aug 10 2021 2:19P Dictated by : MIN GARCIA MD This examination was interpreted and the report reviewed and electronically signed by: MIN GARCIA MD on Jan 29 2021 2:21PM EST [facility] Radiology Study observation (narrative) [facility] XR Shoulder - right 3 ViewsO rdered By: [facility] Provider on 01-29-2021 [facility] CNOVon 08-12-2017 CNOV Office Visit (AGCARDWST) -------RANDOLPH HUNTER ([id number]) 1950 FDate Time Provider Department08/12/17 1:00 PM [...] - metBeta nisha for ASHD with prior TX or prior LVEFANDlt;40 (NQF 0070) - metBeta [...] with treatment plan.This note was generated using [employer] voice recognition system, and there may besome [...] of metoprolol.Electronically Signed:David Erwin MDFebruary 2017 1:17 [facility] Lin Ashley MD 08/12/2017 1:17 PM SignedLIFESTYLE [...] programs in your area.Referring Provider: DAVID ERWIN [[id number]]Allergies As of Date: 08/12/2017 Noted Allergy ReactionPHENERGAN VC (PROMETHAZINE-PHENYL* 005 1 - Mental Status ChangeCIPROFLOXACIN 11/04/2010 2 - Rash Comments: Not hives.ERYTHROMYCIN 04/07/2005 9 - Itching Comments: throatKEFLEX (CEPHALEXIN) 04/18/2005 9 - Itching Comments: throatNAPROSYN (NAPROXEN) 04/18/2005 5 - Intolerance Comments: didn't workPAXIL (PAROXETINE HCL) 04/10/2005 1 - Mental Status ChangePENICILLINS 03/04/2011 4 - Hives Comments: Dioxicillinpaper tape [Other] 11/03/2011 5 - Intolerance Comments: removes skinDate Reviewed: 08/12/2017Reviewed by: Gui Barroso) NAWAF Gallego - Fully AssessedReason for Visit: Follow Up [171] Cmt: 6 monthPrimary Visit Diagnosis:ASHD (arteriosclerotic heart disease) [I25.10] Other Visit Diagnosis:Hypertension, essential [I10]Order(s):metoprolol succinate ER (TOPROL XL) 100 mg [id number] 1 tablet by mouth once daily.Disp: 90 [...] the following areas and commit to making usp changes. EAT A WHOLE FOOD, PLANT BASED [...] way you eat. This is not a diet. It is a way of life that [...] SmartForms filed during this visit:Extended VitalsEncounter Number: [id number] Status:Closed by DAVID ERWIN MD on 08/12/17 Normal [facility] PROGRESSon 08-12-2017 PROGRESS HNO ID: [id number] thor: David Raya: (none)Author Type: PhysicianType: Progress [...] - metBeta nisha for ASHD with prior TX or prior LVEF<40 (NQF 0070) - metBeta [...] with treatment plan.This note was generated using [employer] voice recognition system, and theremay be some incorrect words, spellings, and punctuation that were notnoted in checking the note before saving.DIAGNOSIS FOR VISIT:ASHDHypertensionHISTOR Y OF PRESENT ILLNESSCyntelda Hunter returns for follow-up [...] [Paroxetine H* Mental Status Change- Penicillins Hives Dioxicillin- Paper Tape [Other] Intolerance removes skinCURRENT OUTPATIENT [...] SIGNS: BP 116/76 Pulse 78 Ht 5' 6 (1.68m) Wt 230 lb 3.2 oz(104.4kg) BMI [...] to increased doses of metoprolol.Electronically Signed:David Erwin MDSummit [facility] Center[facility] 2017 1:17 [facility] Vishnu Coleman MD [facility] OBSOLETEon 04-06-2017 OBSOLETE Refill (AGCARDWST) -------RANDOLPH HUNTER ([id number]) 1950 [facility] Time Provider Fonowqplda20/16/17 DAVID ERWIN During your visit today, we [...] Status ChangePENICILLINS 03/04/2011 4 - Hives Comments: Dioxicillinpaper tape [Other] 11/03/2011 5 - Intolerance Comments: [...] file. Status:Closed by GUI GALLEGO on 04/06/17 [facility] Vital Signs Date Time Vital Sign Value Performing Clinician Faci lity 10-10-2024 13:29-0400 Body temperature 96.8 [degF] Travis Helbert JUNIOR COPYWRITER.AUDIO VISUAL DESIGN ENGINEER Work Phone: [facility] 10-10-2024 13:29-0400 Diastolic blood pressure 57 mm[Hg] Travis Helbert JUNIOR COPYWRITER.AUDIO VISUAL DESIGN ENGINEER Work Phone: [facility] 10-10-2024 13:29-0400 Heart rate 66 /min Travis Helbert JUNIOR COPYWRITER.AUDIO VISUAL DESIGN ENGINEER Work Phone: [facility] 10-10-2024 13:29-0400 Respiratory rate 16 /min Travis Helbert JUNIOR COPYWRITER.AUDIO VISUAL DESIGN ENGINEER Work Phone: [facility] 10-10-2024 13:29-0400 SaO2% (BldA) [Mass fraction] 97 % Travis Lackeybert JUNIOR COPYWRITER.AUDIO VISUAL DESIGN ENGINEER Work Phone: [facility] 10-10-2024 13:29-0400 Systolic blood pressure 120 mm[Hg] Travis Helbert JUNIOR COPYWRITER.AUDIO VISUAL DESIGN ENGINEER Work Phone: [facility] 10-05-2024 16:09-0400 Body temperature 97.81 [degF] Travis Helbert JUNIOR COPYWRITER.AUDIO VISUAL DESIGN ENGINEER Work Phone: [facility] 10-05-2024 16:09-0400 Diastolic blood pressure 71 mm[Hg] Travis Helbert JUNIOR COPYWRITER.AUDIO VISUAL DESIGN ENGINEER Work Phone: [facility] 10-05-2024 16:09-0400 Heart rate 64 /min Travis Helbert JUNIOR COPYWRITER.AUDIO VISUAL DESIGN ENGINEER Work Phone: [facility] 10-05-2024 16:09-0400 Respiratory rate 19 /min Travis Helbert JUNIOR COPYWRITER.AUDIO VISUAL DESIGN ENGINEER Work Phone: [facility] 10-05-2024 16:09-0400 SaO2% (BldA) [Mass fraction] 96 % Travis Lackeybert JUNIOR COPYWRITER.AUDIO VISUAL DESIGN ENGINEER Work Phone: [facility] 10-05-2024 16:09-0400 Systolic blood pressure 122 mm[Hg] Travis Helbert JUNIOR COPYWRITER.AUDIO VISUAL DESIGN ENGINEER Work Phone: [facility] 09-30-2024 13:29-0400 Body temperature 97.3 [degF] Travis Patterson JUNIOR COPYWRITER.AUDIO VISUAL DESIGN ENGINEER Work Phone: [facility] 09-30-2024 13:29-0400 Diastolic blood pressure 64 mm[Hg] Travis Patterson JUNIOR COPYWRITER.AUDIO VISUAL DESIGN ENGINEER Work Phone: [facility] 09-30-2024 13:29-0400 Heart rate 69 /min Travis Felicitas JUNIOR COPYWRITER.AUDIO VISUAL DESIGN ENGINEER Work Phone: [facility] 09-30-2024 13:29-0400 Respiratory rate 18 /min Travis Patterson JUNIOR COPYWRITER.AUDIO VISUAL DESIGN ENGINEER Work Phone: [facility] 09-30-2024 13:29-0400 SaO2% (BldA) [Mass fraction] 97 % Travis Lackeyheide MCDONNELL.AUDIO VISUAL DESIGN ENGINEER Work Phone: [facility] 09-30-2024 13:29-0400 Systolic blood pressure 124 mm[Hg] Travis Patterson JUNIOR COPYWRITER.AUDIO VISUAL DESIGN ENGINEER Work Phone: [facility] 07-09-2024 23:24-0500 Diastolic blood pressure 66 mm[Hg] BETY Jha MD Work Phone: [facility] [employer] 07-09-2024 23:24-0500 Heart rate 96 /min BETY Jha MD Work Phone: [facility] [employer] 07-09-2024 23:24-0500 Respiratory rate 20 /min BETY Jha MD Work Phone: [facility] [employer] 07-09-2024 23:24-0500 SaO2% (BldA) [Mass fraction] 98 % BETY Jha MD Work Phone: [facility] [employer] 07-09-2024 23:24-0500 Systolic blood pressure 99 mm[Hg] BETY Jha MD Work Phone: [facility] [employer] 07-09-2024 23:21-0500 Body height 157.5 cm BETY Jha MD Work Phone: [facility] [employer] 07-09-2024 23:21-0500 Body mass index (BMI) [Ratio] 39.14 kg/m2 BETY Jha MD Work Phone: [employer] 07-09-2024 23:21-0500 Body temperature 98.4 [degF] BETY Jha MD Work Phone: [employer] 07-09-2024 23:21-0500 Body weight 97.07 kg BETY Jha MD Work Phone: [employer] 02-10-2024 10:43-0400 Body temperature 97.7 [degF] Isaaccirilo Chicas DO Work Phone: [employer] 01-27-2024 12:59-0400 Body temperature 97.11 [degF] Isaaccirilo Hancocke DO Work Phone: [employer] 01-27-2024 12:59-0400 Diastolic blood pressure 76 mm[Hg] Isaaccirilo Hancocke DO Work Phone: [employer] 01-27-2024 12:59-0400 Heart rate 72 /min Isaac Brian DO Work Phone: [employer] 01-27-2024 12:59-0400 Respiratory rate 18 /min Isaac Brian DO Work Phone: [employer] 01-27-2024 12:59-0400 Systolic blood pressure 126 mm[Hg] Isaaccirilo Hancocke DO Work Phone: [employer] 01-20-2024 14:26-0400 Body height 157.5 cm Isaaccirilo Hancocke DO Work Phone: [employer] 01-20-2024 14:26-0400 Body mass index (BMI) [Ratio] 38.96 kg/m2 Isaaccirilo Hancocke DO Work Phone: [employer] 01-20-2024 14:26-0400 Body temperature 97.2 [degF] Isaaccirilo Hancocke DO Work Phone: [employer] 01-20-2024 14:26-0400 Body weight 96.62 kg Isaaccirilo Hancocke DO Work Phone: [facility] [employer] 01-20-2024 14:26-0400 Diastolic blood pressure 70 mm[Hg] Isaac Chicas DO Work Phone: [facility] [employer] 01-20-2024 14:26-0400 Heart rate 79 /min Isaac Chicas DO Work Phone: [facility] [employer] 01-20-2024 14:26-0400 Respiratory rate 18 /min Isaac Chicas DO Work Phone: [facility] [employer] 01-20-2024 14:26-0400 Systolic blood pressure 112 mm[Hg] Isaac Chicas DO Work Phone: [facility] [employer] 12-15-2023 22:15-0400 Diastolic blood pressure 57 mm[Hg] Gloria Bangura DO Work Phone: [facility] [employer] 12-15-2023 22:15-0400 Heart rate 64 /min Gloriajasvir Bangura DO Work Phone: [facility] [employer] 12-15-2023 22:15-0400 Respiratory rate 16 /min Gloria Bangura DO Work Phone: [facility] [employer] 12-15-2023 22:15-0400 SaO2% (BldA) [Mass fraction] 98 % Gloria Bangura DO Work Phone: [facility] [employer] 12-15-2023 22:15-0400 Systolic blood pressure 137 mm[Hg] Gloriajasvir Bangura DO Work Phone: [facility] [employer] 12-15-2023 18:24-0400 Body height 165.1 cm Gloriajasvir Bangura DO Work Phone: [employer] 12-15-2023 18:24-0400 Body mass index (BMI) [Ratio] 35.45 kg/m2 Gloria Willem DO Work Phone: [facility] [employer] 12-15-2023 18:24-0400 Body temperature 97.3 [degF] Gloriajasvir Bangura DO Work Phone: [facility] [employer] 12-15-2023 18:24-0400 Body weight 96.62 kg Gloria Bangura DO Work Phone: [employer] 07-20-2023 06:46-0500 Diastolic blood pressure 67 mm[Hg] Cuba Anna MD Work Phone: [employer] 07-20-2023 06:46-0500 Heart rate 63 /min Cuba Anna MD Work Phone: [employer] 07-20-2023 06:46-0500 Respiratory rate 16 /min Cuba Anna MD Work Phone: [employer] 07-20-2023 06:46-0500 SaO2% (BldA) [Mass fraction] 97 % Cuba Anna MD Work Phone: [employer] 07-20-2023 06:46-0500 Systolic blood pressure 148 mm[Hg] Cuba Anna MD Work Phone: [employer] 07-19-2023 18:50-0500 Body height 157.5 cm Cuba Anna MD Work Phone: [employer] 07-19-2023 18:50-0500 Body mass index (BMI) [Ratio] 43.71 kg/m2 Cuba Anna MD Work Phone: [employer] 07-19-2023 18:50-0500 Body temperature 98.01 [degF] Cuba Anna MD Work Phone: [employer] 07-19-2023 18:50-0500 Body weight 108.41 kg Cuba Anna MD Work Phone: [employer] 09-06-2022 10:13-0400 Diastolic blood pressure 75 mm[Hg] Linden Fuentes MD Work Phone: [employer] 09-06-2022 10:13-0400 Heart rate 69 /min Linden Fuentes MD Work Phone: [employer] 09-06-2022 10:13-0400 Respiratory rate 15 /min Linden Fuentes MD Work Phone: [facility] 09-06-2022 10:13-0400 SaO2% (BldA) [Mass fraction] 100 % Linden Fuentes MD Work Phone: [facility] 09-06-2022 10:13-0400 Systolic blood pressure 143 mm[Hg] Linden Fuentes MD Work Phone: [facility] 09-06-2022 05:33-0400 Body temperature 98.2 [degF] Linden Fuentes MD Work Phone: [facility] 03-12-2022 19:37-0400 Body temperature 98.71 [degF] BETY Jha MD Work Phone: [facility] 03-12-2022 19:37-0400 Diastolic blood pressure 68 mm[Hg] BETY Jha MD Work Phone: [facility] 03-12-2022 19:37-0400 Heart rate 73 /min BETY Jha MD Work Phone: [facility] 03-12-2022 19:37-0400 Respiratory rate 16 /min BETY Jha MD Work Phone: [facility] 03-12-2022 19:37-0400 SaO2% (BldA) [Mass fraction] 97 % BETY Jha MD Work Phone: [facility] 03-12-2022 19:37-0400 Systolic blood pressure 151 mm[Hg] BETY Jha MD Work Phone: [facility] 03-08-2022 20:15-0400 Body height 165.1 cm BETY Jha MD Work Phone: [facility] 03-08-2022 11:49-0400 Body mass index (BMI) [Ratio] 35.45 kg/m2 BETY Jha MD Work Phone: [facility] 03-08-2022 11:49-0400 Body weight 96.62 kg BETY Jha MD Work Phone: [facility] 09-26-2021 11:23-0400 Body weight 99.34 kg Baudilio Sultana MD Work Phone: [facility] 09-26-2021 11:23-0400 Diastolic blood pressure 72 mm[Hg] Baudilio Sultana MD Work Phone: [facility] 09-26-2021 11:23-0400 Heart rate 68 /min Baudilio Sultana MD Work Phone: [facility] 09-26-2021 11:23-0400 Systolic blood pressure 142 mm[Hg] Baudilio Sultana MD Work Phone: [facility] Encounters Encounter Date Encounter Type Care Provider Facility Start: 05-03-2025 ambulatory [facility] Facility:[facility] Start: 05-01-2025 ambulatory GILMER COTTON Facility: [facility] Start: 04-26-2025 End: 04-26-2025 ambulatory SOFY SAGASTUME Facility:[facility] Start: 04-20-2025 ambulatory [facility] Facility:[facility] Start: 04-05-2025 End: 04-05-2025 ambulatory [facility] Facility:[facility] Start: 03-21-2025 Registered Referred Min Marroquin MD [facility] Start: 03-20-2025 End: 03-21-2025 ambulatory GILMER COTTON Facility:[facility] Start: 03-08-2025 ambulatory [facility] Facility:[facility] Start: 03-08-2025 Registered Referred Min Marroquin MD [facility] Start: 03-02-2025 Registered Referred Min Ch Eduardo [facility] Start: 03-02-2025 End: 03-02-2025 ambulatory [facility] Facility:[facility] Start: 02-21-2025 Registered Referred Min Ch Eduardo [facility] Start: 02-21-2025 End: 02-21-2025 ambulatory [facility] Facility:[facility] Start: 02-13-2025 End: 02-13-2025 ambulatory GILMER COTTON Facility:[facility] Start: 02-07-2025 Registered Referred Min Ch Eduardo [facility] Start: 02-07-2025 End: 02-07-2025 ambulatory [facility] Facility:[facility] Start: 02-01-2025 Registered Referred Min Ch [facility] Start: 02-01-2025 End: 02-01-2025 ambulatory [facility] Facility:[facility] Start: 01-31-2025 Registered Referred Min Marroquin MD [facility] Start: 01-31-2025 End: 01-31-2025 ambulatory [facility] Facility:[facility] Start: 01-24-2025 Registered Referred Min Marroquin MD [facility] Start: 01-24-2025 End: 01-24-2025 ambulatory Min ALBRECHT Facility:[facility] Start: 01-17-2025 ambulatory Min ALBRECHT Facil ity:[facility] Start: 01-17-2025 Registered Referred Min Marroquin MD [facility] Start: 01-10-2025 End: 01-10-2025 ambulatory GILMER COTTON Facility:[facility] Start: 01-09-2025 ambulatory Min ALBRECHT Facil ity:[facility] Start: 01-09-2025 Registered Referred Min Marroquin MD [facility] Start: 01-03-2025 End: 01-03-[address] Baudilio Sultana MD Work Phone: [phone] [place] [address] Start: 01-03-2025 End: 01-03-2025 Departed Referred Min ChEduardo [facility] Start: 01-03-2025 Registered Referred Min Ch [facility] Start: 01-03-2025 End: 01-03-2025 ambulatory Min ALBRECHT Facility:[facility] Start: 01-02-2025 Registered Referred Min Ch Eduardo [facility] Start: 01-02-2025 End: 01-02-2025 ambulatory Min ALBRECHT Facility:[facility] Start: 12-19-2024 End: 12-19-[address] Baudilio Sultana MD Work Phone: [facility] Start: 12-19-2024 End: 12-19-2024 Departed Referred [facility]du[facility] Start: 12-19-2024 Registered Referred Min Ch Eduardo [facility] Start: 12-19-2024 End: 12-19-2024 ambulatory [facility] Facility:[facility] Start: 12-06-2024 End: 12-06-2024 ambulatory RAF CASEY Facility:[facility] Start: 12-05-2024 End: 12-05-[address] Baudilio Sultana MD Work Phone: -[facility] Start: 12-05-2024 End: 12-05-2024 Departed Referred Min Marroquin MD -[facility] Start: 12-05-2024 End: 12-05-2024 ambulatory Baudilio Sultana Facility:[facility] Start: 11-09-2024 End: 01-09-2025 Follow-up encounter Steven Pelaez Work Phone: Podiatry Start: 11-08-2024 ambulatory STEVEN Jones ty:[phone] Start: 11-04-2024 End: 11-04-2024 ambulatory GILMER COTTON Facility:[facility] Start: 11-01-2024 End: 01-01-2025 Follow-up encounter Steven Pelaez Work Phone: Podiatry Start: 10-27-2024 ambulatory RAF CASEY Facility:[facility] Start: 10-27-2024 End: 10-27-2024 Subsequent hospital visit by physician [facility] Work Phone: Radiology Comment on above: Sprain of left ankle , unspecified ligament, initial encounter [S93.402A] Start: 10-27-2024 End: 10-27-2024 Patient encounter procedure Steven Pelaez Work Phone: Podiatry Comment on above: Sprain of left ankle , unspecified ligament, initial encounter (Primary Dx); Ankle instability, left; Chronic pain of left ankle Start: 10-27-2024 End: 10-27-2024 ambulatory RAF CASEY Facility:[facility] Start: 10-19-2024 End: 10-19-2024 Patient encounter procedure Mendel Sharma PA-C Work Phone: Orthopaedics Comment on above: Primary osteoarthrit is of left knee (Primary Dx) Start: 10-19-2024 End: 10-19-2024 ambulatory RAF CASEY Facility:[facility] Start: 10-10-2024 End: 10-10-2024 ambulatory Travis Patterson APRN.[facility] Work Phone: [facility] Comment on above: Fall at home, initia l encounter (Primary Dx); Cerebral palsy, unspecified type (HCC); Brachial neuritis or radiculitis; Acute pain of right shoulder; Left knee pain, unspecified chronicity; Diabetic polyneuropathy associated with type 2 diabetes mellitus (HCC); Neuropathy; Type 2 diabetes, controlled, with neuropathy (HCC); Atherosclerosis of gambell coronary artery of gambell heart without angina pectoris; Other pulmonary embolism without acute cor pulmonale, unspecified chronicity (HCC); Debility Start: 10-10-2024 End: 10-10-2024 Telemedicine consultation with patient Travis Patterson APRN.[facility] Work Phone: [facility] Start: 10-05-2024 End: 10-05-2024 ambulatory Travis Patterson APRN.[facility] Work Phone: [facility] Comment on above: Fall at home, initia l encounter (Primary Dx); Cerebral palsy, unspecified type (HCC); Brachial neuritis or radiculitis; Acute pain of right shoulder; Left knee pain, unspecified chronicity; Diabetic polyneuropathy associated with type 2 diabetes mellitus (HCC); Type 2 diabetes, controlled, with neuropathy (HCC); Neuropathy; Atherosclerosis of gambell coronary artery of gambell heart without angina pectoris; Other pulmonary embolism without acute cor pulmonale, unspecified chronicity (HCC); Debility Start: 10-05-2024 End: 10-05-2024 Telemedicine consultation with patient Travis Patterson APRN.[facility] Work Phone: [facility] Start: 09-30-2024 End: 09-30-2024 ambulatory Travis Patterson APRN.[facility] Work Phone: [facility] Comment on above: Fall at home, initia l encounter (Primary Dx); Cerebral palsy, unspecified type (HCC); Brachial neuritis or radiculitis; Acute pain of right shoulder; Left knee pain, unspecified chronicity; Diabetic polyneuropathy associated with type 2 diabetes mellitus (HCC); Neuropathy; Type 2 diabetes, controlled, with neuropathy (HCC); Atherosclerosis of gambell coronary artery of gambell heart without angina pectoris; Other pulmonary embolism without acute cor pulmonale, unspecified chronicity (HCC); Debility Start: 09-30-2024 End: 09-30-2024 Telemedicine consultation with patient Travis Patterson APRN.[facility] Work Phone: [facility] Start: 09-21-2024 End: 09-21-2024 ambulatory GILMER Bojorquez GRETNA Facility:[facility] Start: 09-18-2024 End: 09-28-2024 ambulatory RAF CASEY Facility:[facility] Start: 09-18-2024 End: 09-18-2024 Emergency department patient visit RAF CASEY Facility:[facility] Start: 09-02-2024 End: 09-02-2024 ambulatory GILMER COTTON Facility:[facility] Start: 08-05-2024 End: 08-05-2024 ambulatory GILMER Bojorquez GRETNA Facility:[facility] Start: 07-09-2024 End: 07-09-2024 Subsequent hospital visit by physician [facility] Xr Portable [facility] Radiology Comment on above: Arrived Start: 07-09-2024 End: 07-10-2024 Emergency department patient visit Александр Jha MD Work Phone: [facility] ED Comment on above: Acute cough (Primary Dx) Start: 06-30-2024 End: 06-30-2024 ambulatory GILMER COTTON Facility:[facility] Start: 05-02-2024 End: 05-02-2024 ambulatory GILMER Bojorquez GRETNA Facility:[facility] Start: 02-10-2024 End: 02-10-2024 Office outpatient visit 10 minutes Isaac Chicas DO Work Phone: [facility] WND OSTOMY HBO Comment on above: Pressure ulcer of ri ght foot, stage 3 (HCC) (Primary Dx) Start: 02-10-2024 End: 02-10-2024 ambulatory [facility] Start: 01-27-2024 End: 01-27-2024 Subsequent hospital visit by physician Isaac Chicas DO Work Phone: [facility] W[facility]STOM[facility] HBO Comment on above: Pressure ulcer of ri ght foot, stage 3 (HCC) (Primary Dx) Start: 01-27-2024 End: 01-27-2024 ambulatory [facility] Start: 01-20-2024 End: 01-20-2024 Office outpatient new 30 minutes Isaac Chicas DO Work Phone: [facility]ST[facility] HBO Comment on above: Pressure ulcer of ri ght foot, stage 3 (HCC) (Primary Dx) Start: 01-20-2024 End: 01-20-2024 ambulatory [facility] Start: 12-15-2023 End: 12-15-2023 Subsequent hospital visit by physician [facility] Xr Portable [facility] Radiology Comment on above: Arrived Start: 12-15-2023 End: 12-16-2023 Emergency department patient visit Gloria Bangura DO Work Phone: [facility] ED Comment on above: Diabetic ulcer of le ft foot associated with diabetes mellitus due to underlying condition, unspecified part of foot, unspecified ulcer stage (HCC) (Primary Dx); Left leg cellulitis Start: 07-19-2023 End: 07-19-2023 Subsequent hospital visit by physician [facility] Ct Exam Room [address] [facility] CT Comment on above: Arrived Start: 07-19-2023 End: 07-19-2023 Emergency department patient visit CUBA ANNA [facility] Start: 07-19-2023 End: 07-20-2023 Emergency department patient visit Cuba Anna MD Work Phone: [facility] ED Comment on above: Frequent falls (Prim liv Dx); Right hip pain; Contusion of right knee, initial encounter; Osteoarthritis, unspecified osteoarthritis type, unspecified site Start: 05-04-2023 Orders Only Chasidy Heredia MA [facility] [place] Start: 09-06-2022 End: 09-07-2022 Emergency department patient visit LINDEN FUENTES [facility] Start: 09-06-2022 End: 09-06-2022 Subsequent hospital visit by physician [facility] Ed Xr Port[facility]-Ray Comment on above: Arrived Start: 09-06-2022 End: 09-06-2022 Emergency department patient visit Linden Fuentes MD Work Phone: [facility] EMERGENCY [facility]PT Comment on above: Fall, initial encoun ter (Primary Dx) Start: 04-15-2022 Telephone encounter Baudilio Sultana MD Work Phone: [facility] [place] Comment on above: Insurance Authorizat ion Start: 03-08-2022 End: 03-13-2022 Evaluation and management of inpatient J Candida Jha MD Work Phone: [facility] 1E MED SURG Comment on above: [...] above: Patient Question Start: 02-12-2022 ambulatory Steven xvaier Work Phone: Podiatry Comment on above: xray results Start: 02-12-2022 E-mail encounter fro m caregiver Steven Pelaez Work Phone: [facility] Start: 02-10-2022 End: 02-10-2022 Subsequent hospital visit by physician Ramos [facility] [place] Work Phone: Radiology Comment on [...] Sultana MD Work Phone: Internal [facility] [place] Start: 11-26-2021 Telephone encounter Baudilio Sultana MD Work Phone: [facility] [place] Comment on above: Anticoagulation Start: 11-19-2021 Telephone encounter Baudilio Sultana MD Work Phone: [facility] [place] Comment on above: Anticoagulation Start: 11-05-2021 Telephone encounter Baudilio Sultana MD Work Phone: [facility] [place] Comment on above: Anticoagulation Start: 10-30-2021 Telephone encounter Baudilio Sultana MD Work Phone: [facility] [place] Comment on above: Anticoagulation Start: 10-15-2021 Telephone encounter Baudilio Sultana MD Work Phone: [facility] [place] Comment on above: Anticoagulation Start: 10-14-2021 ambulatory Baudilio Sultana MD Work Phone: [facility] [place] Comment on above: Question regarding C arotid Dup Dustin OP Start: 10-14-2021 End: 10-14-2021 Subsequent hospital visit by physician Bone Density [facility] Work Phone: Radiology Comment on above: Disorder of bone and cartilage [M89.9, M94.9] Start: 10-08-2021 Telephone encounter Baudilio Sultana MD Work Phone: [facility] [place] Comment on above: Anticoagulation Refill Request Start: 10-01-2021 Telephone encounter Baudilio Sultana MD Work Phone: [facility] [place] Comment on above: Patient Question; Or ders Anticoagulation Start: 09-27-2021 Telephone encounter Baudilio Sultana MD Work Phone: [facility] [place] Comment on above: Results Start: 09-26-2021 End: 09-26-2021 Patient encounter procedure [facility] Comment on above: Cerebral palsy, unsp ecified [...] Telephone encounter Baudilio Sultana MD Work Phone: [facility] [place] Comment on above: Anticoagulation Start: 09-18-2021 Telephone encounter Baudilio Sultana MD Work Phone: [facility] Comment on above: Anticoagulation Start: 09-16-2021 Chart abstracting Baudilio Pretty MD Work Phone: [facility] [place] Start: 09-16-2021 End: 09-16-2021 Patient encounter procedure [facility] Start: 2021 Telephone encounter Baudilio Sultana MD Work Phone: [facility] Comment on above: Anticoagulation Start: 01-29-2021 End: 01-29-2021 Subsequent hospital visit by physician Xr [facility] [place] Work Phone: Radiology Comment on above: Chronic right should er pain [M25.511, G89.29] Start: 04-12-2018 Ambulatory DAVID ERWIN Facility :[facility] Start: 08-12-2017 End: 08-12-[address] [facility] Procedures Date Procedure Procedure Detail [...] d ev cleared fda spec home use [facility] Work Phone: Start: 03-12-2022 Gluc bld gluc mntr d ev cleared fda spec home use [facility] Work Phone: Start: 03-12-2022 Iadna-dna/rna gi pth [...] Start: 03-11-2022 POCT COVID-19, ANTIGEN Katya Lezama JUNIOR COPYWRITER - AUDIO VISUAL DESIGN ENGINEER Work Phone: Start: 03-11-2022 Gluc bld gluc [...] Work Phone: Start: 03-10-2022 PROTIME/INR & PTT Erci Edge MD Work Phone: Start: 03-09-2022 Gluc [...] Thyrotropin [Units/v olume] in Serum or Plasma [facility] 1 Start: 03-09-2022 BASIC METABOLIC PANE L W/ REFLEX TO MG FOR LOW K Katya Lezama JUNIOR COPYWRITER - AUDIO VISUAL DESIGN ENGINEER Work Phone: Start: 03-09-2022 Drug screen quantita tive vancomycin Kushal Gaines Cued Work Phone: Start: 03-09-2022 Hemoglobin glycosylated a1c Katya Lezama JUNIOR COPYWRITER - AUDIO VISUAL DESIGN ENGINEER Work Phone: Start: 03-09-2022 PROTIME/INR & PTT Merritt Lezama JUNIOR COPYWRITER - AUDIO VISUAL DESIGN ENGINEER Work Phone: Start: 03-08-2022 Gluc bld gluc mntr d ev cleared fda spec home use Александр Jha MD Work Phone: Start: 03-08-2022 End: 03-08-2022 Gluc bld gluc mntr dev cleared fda spec home use Kushal Gaines Cued Work Phone: Start: 03-08-2022 Radex ankle complete minimum 3 views Katya Lezama JUNIOR COPYWRITER - AUDIO VISUAL DESIGN ENGINEER Work Phone: Start: 03-08-2022 BEDSIDE SPIROMETRY Luizaua jun Lezama JUNIOR COPYWRITER - AUDIO VISUAL DESIGN ENGINEER Work Phone: Start: 03-08-2022 Culture bacterial quanttative colony count urine Александр Jha MD Work Phone: Start: 03-08-2022 Urnls dip stick/tabl et rgnt auto w/o microscopy Александр Jha MD Work Phone: Start: 03-08-2022 Basic metabolic pane l calcium total Александр Jha MD Work Phone: Start: 03-08-2022 Culture bacterial bl ood aerobic w/id isolates J Candida Jha MD Work Phone: Start: 03-08-2022 CULTURE, BLOOD 1 J Jennifer Jha MD Work Phone: Start: 03-08-2022 LACTATE, [...] Start: 09-25-2025 Creatinine measurement Serum Creatin ine [facility] Start: 02-20-2025 Influenza vaccination [facility] Start: 12-14-2024 Complete blood count Hemoglobin/Jackson tocrit [facility] Start: 12-14-2024 Creatinine measurement Serum Creatin ine [facility] Start: 12-14-2024 Diabetes: Estimated Glomerular Filtration Rate for Kidney Health Diabetes: Estimated Glomerular Filtration Rate for [facility] Start: 12-07-2024 End: 12-07-2024 Patient encounter procedure 12/07/2024 3:40 PM EDT Office Visit Endocrinology [address] [place] [phone] Ravi Michael MD [address] [place] [address] Diabetes Endocrinology Comment on above: Diabetes Start: 11-08-2024 End: 11-08-2024 Patient encounter procedure 11/08/2024 11:00 AM EDT Appointment MRI Scan [address] [place] [address] Chronic pain of left ankle [M25.572, G89.29 MRI Scan Comment on above: Chronic pain of left ankle [M25.572, G89.29 Start: 10-27-2024 End: 10-27-2024 Patient encounter procedure 10/27/2024 11:15 AM EDT Office Visit Podiatry [address] [place], [place] [phone] Steven Pelaez [address] [place], [place] [phone] left foot Podiatry Comment on above: left foot Start: 10-19-2024 End: 10-19-2024 Patient encounter procedure Orthopaedics Comment on above: Cerebral palsy with knee injury unable to stand pivot. 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 pivot Start: 06-22-2024 Advance Directive Discussion Advance Directive Discussion [facility] Start: 06-22-2024 Medicare Advantage Annual Wellness Visit Medicare Advantage Annual Wellness Visit [facility] Start: 02-21-2024 Covid-19 Vaccine ( season) Covid-19 Vaccine ( season) [facility] Start: 02-21-2024 Influenza vaccination [facility] Start: 02-03-2024 End: 02-03-2024 Patient encounter procedure 02/03/2024 10:00 AM EDT Appointment [facility] [address] [place] [address] Isaac Chicas, [address] [place] [address] [facility] Start: 01-27-2024 End: 08-07-2024 Patient encounter procedure 01/27/2024 1:15 PM EDT Appointment [facility] [address] [place] [address] Isaac Chicas, DO [address] [place] [address] [facility] Start: 06-22-2023 Advance Directive Discussion Advance Directive Discussion [facility] Start: 06-22-2023 Medicare Advantage Annual Wellness Visit Medicare Advantage Annual Wellness Visit [facility] Start: 03-09-2023 Hemoglobin A1c measurement Diabetes: Hemoglobin A1C [facility] Start: 03-09-2023 Thyroid stimulating hormone measurement TSH Level [facility] Start: 02-20-2023 Covid-19 Vaccine () Covid-19 Vaccine () [facility] Start: 02-20-2023 COVID-19 Vaccine () COVID-19 Vaccine () [facility] Start: 02-20-2023 Influenza vaccination Influenza Vacc ine (#1) [facility] Start: 01-04-2023 Colonoscopy COLONOSCOPY [facility] Start: 01-04-2023 COLORECTAL CANCER SCREENING COLORECTAL CANCER SCREENING [facility] Start: 01-04-2023 Screening for malign ant neoplasm of colon [facility] Start: 09-26-2022 ANNUAL PCP TEAM MUSIC VIDEO DIRECTOR DANYELLE DISEASE VISIT ANNUAL PCP TEAM CHRONIC DISEASE VISIT [facility] Start: 09-26-2022 Serum Creatinine Serum Creatinine Cl [facility] Start: 09-16-2022 Hepatitis B screening URINE ALBUMIN:CREATININE RATIO [facility] Start: 09-06-2022 Hemoglobin A1c measurement HbA1C [facility] Start: 09-06-2022 Hemoglobin A1c/Hemoglobin.total in Blood HBA1C [facility] Start: 06-24-2022 ANNUAL PCP TEAM MUSIC VIDEO DIRECTOR DANYELLE DISEASE VISIT ANNUAL PCP TEAM CHRONIC DISEASE VISIT [facility] Start: 06-22-2022 ADVANCE DIRECTIVE DISCUSSION ADVANCE DIRECTIVE DISCUSSION [facility] Start: 04-18-2022 BP CONTROLLED (<130/80) BP CONTROLLE D (<130/80) [facility] Start: 04-12-2022 COVID-19 Vaccine (4 - Booster) COVID-19 Vaccine (4 - Booster) [facility] Start: 03-13-2022 End: 03-11-2023 Protime-INR Protime-INR Lab Routine PE (pulmonary thromboembolism) (HCC) Expected: 03/13/2022, Expires: 03/11/2023 [facility] Work Phone: Comment on above: Expected: 03/13/2022 , Expires: 03/11/2023 Start: 02-20-2022 Influenza vaccination C [facility] Start: 02-12-2022 Hemoglobin A1c/Hemoglobin.total in Blood HBA1C [facility] Start: 11-09-2021 3 comp foot exam completed DIABETIC FOOT EXAM [facility] Start: 11-09-2021 Diabetic foot examination Diabetic Foot Exam [facility] Start: 11-08-2021 End: 01-08-2022 Thyrotropin [Units/volume] in Serum or Plasma TSH BLD Lab Routine Acquired hypothyroidism Expected: 11/08/2021, Expires: 01/08/2022 [facility] Work Phone: Comment on above: Expected: 11/08/2021 , Expires: 01/08/2022 Start: 09-26-2021 End: 11-26-2021 Comprehensive metabolic 2000 panel - Serum or Plasma [facility] Work Phone: Comment on above: Expected: 09/26/2021 , Expires: 11/26/2021 Start: 09-26-2021 End: 11-26-2021 Thyrotropin [Units/volume] in Serum or Plasma [facility] Work Phone: Comment on above: Expected: 09/26/2021 , Expires: 11/26/2021 Start: 09-26-2021 End: 11-26-2021 VITAMIN B12 BLOOD [facility] Work Phone: Comment on above: Expected: 09/26/2021 , Expires: 11/26/2021 Start: 09-11-2021 Glaucoma screening Dilated Retinal E xam [facility] Start: 09-11-2021 Hepatitis C antibody , confirmatory test DILATED RETINAL EXAM [facility] Start: 08-29-2021 FECAL OCCULT BLOOD FECAL OCCULT BLOO D [facility] Start: 08-29-2021 Screening for malign ant neoplasm of colon Fecal Occult Blood [facility] Start: 08-01-2021 Hemoglobin A1c/Hemoglobin.total in Blood HBA1C [facility] Start: 07-11-2021 Hepatitis B screening URINE ALBUMIN:CREATININE RATIO [facility] Start: 06-22-2021 ADVANCE DIRECTIVE DISCUSSION ADVANCE DIRECTIVE DISCUSSION [facility] Start: 06-16-2021 COVID-19 VACCINE (5 - Booster) COVID-19 VACCINE (5 - Booster) [facility] Start: 03-21-2021 Hepatitis B surface antibody level LDL CHOLESTEROL [facility] Start: 03-29-2019 Mammography [facility] Start: 03-29-2019 Screening for malign ant neoplasm of breast Mammogram Screening [facility] Start: 12-26-2018 ADVANCE DIRECTIVE DISCUSSION ADVANCE DIRECTIVE DISCUSSION [facility] Start: 03-29-2017 DTaP/Tdap/Td Vaccine s (2 - Td or Tdap) DTaP/Tdap/Td Vaccines (2 - Td or Tdap) [facility] Start: 03-29-2017 Urine microalbumin profile [facility] Start: 09-06-2016 Pneumococcal Vaccine : 65+ Years (1 - PCV) Pneumococcal Vaccine: 65+ Years (1 - PCV) [facility] Start: 2016 BONE DENSITY BONE DENSITY [facility] Start: 05-26-2016 SHINGRIX VACCINE (2 of 3) SHINGRIX VACCINE (2 of 3) [facility] Start: 05-26-2016 Zoster Vaccines (2 o f 3) Zoster Vaccines (2 of 3) [facility] Start: 2011 Hepatitis B Vaccine (1 of 3 - Risk 3-dose series) Hepatitis B Vaccine (1 of 3 - Risk 3-dose series) [facility] Start: 2011 Hepatitis B Vaccines (1 of 3 - Risk 3-dose series) Hepatitis B Vaccines (1 of 3 - Risk 3-dose series) [facility] Start: 2011 RSV Immunization age d 60 or older (1 - 1-dose 60+ series) RSV Immunization aged 60 or older (1 - 1-dose 60+ series) [facility] Start: 2011 RSV Immunization for Adults (1 - Risk 60-74 years 1-dose series) RSV Immunization for Adults (1 - Risk 60-74 years 1-dose series) [facility] Start: 2011 RSV Vaccine (1 - 1-d ose 60+ series) RSV Vaccine (1 - 1-dose 60+ series) [facility] Start: 2011 RSV Vaccine (1 - Ris k 60-74 years 1-dose series) RSV Vaccine (1 - Risk 60-74 years 1-dose series) [facility] Start: 09-06-2001 Zoster Vaccines (1 o f 2) Zoster Vaccines (1 of 2) [facility] Start: 1996 COLOGUARD (FIT-DNA) COLOGUARD (FIT-D NA) [facility] Start: [address] COLONOGRAPHY [facility] Start: 1996 Screening for malign ant neoplasm of colon [facility] Start: 1996 SIGMOIDOSCOPY SIGMOIDOSCOPY [facility] Start: 09-07-1991 Screening for malign ant neoplasm of breast Mammogram [facility] Start: 1991 Screening for malign ant neoplasm of breast Mammogram [facility] Start: 09-06-1970 DTaP/Tdap/Td Vaccine s (1 - Tdap) DTaP/Tdap/Td Vaccines (1 - Tdap) [facility] Start: 1970 DTaP/Tdap/Td vaccine (1 - Tdap) DTaP/Tdap/Td vaccine (1 - Tdap) [facility] Start: 1970 Hepatitis A Vaccines (1 of 2 - Risk 2-dose series) Hepatitis A Vaccines (1 of 2 - Risk 2-dose series) [facility] Start: 09-06-1969 Hepatitis C screening [facility] C [facility] Start: 1969 Anxiety Screening Anxiety Screening [facility] Start: 1969 BP CONTROLLED (<130/80) BP CONTROLLE D (<130/80) [facility] Start: 1969 Diabetes: Urine Albumin-Creatinine Ratio for Kidney Health Diabetes: Urine Albumin-Creatinine Ratio for Kidney Health [facility] Start: 1969 Hepatitis C screening Hepatitis C Sc reening [facility] Start: 1963 Depression Monitoring Depression Mon itoring [facility] Start: 1963 Depression Screening Depression Scre ening [facility] Start: 1961 Diabetic foot examination Diabetes: Foot Exam [facility] Start: 1961 Glaucoma screening Diabetes: R etinopathy Screening [facility] Start: 1961 Preventive dental service Diabetes: Dental Exam [facility] Start: 03-09-1952 COVID-19 Vaccine (#1) COVID-19 Vacci ne (#1) [facility] Start: 1951 Hepatitis B Vaccines (1 of 3 - 3-dose series) Hepatitis B Vaccines (1 of 3 - 3-dose series) [facility] Start: 1951 Screening for malign ant neoplasm of colon [facility] Start: 1951 Screening for osteoporosis Bone Density Scan [facility] Start: 1951 Lipid panel Lipid Panel [facility] Start: 1951 Medicare Advantage Annual Wellness Visit (AWV) Medicare Advantage Annual Wellness Visit (AWV) [facility] Start: 1951 Screening for malign ant neoplasm of colon [facility] Start: 1951 Screening for osteoporosis Bone Density Scan [facility] Bacteria identified in Blood by Culture [facility] [employer] Work Phone: End: 03-13-2022 Basic metabolic 2000 panel - Serum or Plasma Basic Metabolic Panel Lab Routine Daily for 3 Days starting 03/11/2022 until 03/13/2022, 1 completed [facility] Work Phone: Comment on above: Daily for 3 Days sta rting 03/11/2022 until 03/13/2022, 1 completed End: 03-13-2022 CBC W Auto Differential panel - Blood CBC with Auto Differential Lab Routine Daily for 3 Days starting 03/11/2022 until 03/13/2022, 1 completed [facility] Work Phone: Comment on above: Daily for 3 Days sta rting 03/11/2022 until 03/13/2022, 1 completed Culture, Blood 1 Culture, Blood 1 Microbiology STAT 03/08/2022 1:04 PM EDT [facility] Work Phone: Culture, Blood 2 Culture, Blood 2 Microbiology STAT 03/08/2022 1:04 PM EDT [facility] Work Phone: End: 03-08-2022 Culture, Urine Culture, Urine Microbiology Add-On One Time for 1 Occurrences starting 03/08/2022 until 03/08/2022 [facility] Work Phone: Comment on above: One Time for 1 Occur rences starting 03/08/2022 until 03/08/2022 Dressing Order: Collagen Ag, Mesalt pad; Three times per week; 4x4 gauze, ABDs; Kerlex, Paper tape Dressing Order: Collagen Ag, Mesalt pad; Three times per week; 4x4 gauze, ABDs; Kerlex, Paper tape Wound Ostomy Routine Ordered: 01/20/2024 [employer] Work Phone: Comment on above: Ordered: 01/20/2024 Dressing Order: Collagen, Mesalt pad; Three times per week; ABDs; Kerlex, Paper tape Dressing Order: Collagen, Mesalt pad; Three times per week; ABDs; Kerlex, Paper tape Wound Ostomy Routine Ordered: 01/27/2024 [employer] Work Phone: Comment on above: Ordered: 01/27/2024 End: 10-26-2022 Dxa bone density study 1/> sites axial skel DXA-AXIAL SKELETON Radiology Routine Disorder of bone and cartilage 1 Occurrences starting 09/26/2021 until 10/26/2022 [facility] Work Phone: Comment on above: 1 Occurrences starti ng 09/26/2021 until 10/26/2022 ECG 12 lead ECG 12 lead CV E CG STAT 09/06/2022 3:01 AM EDT [employer] Work Phone: Glucose [Mass/volume ] in Serum or Plasma [employer] Work Phone: Comment on above: 4X Daily (AC & HS) u ntil discontinued starting 03/08/2022 As Needed until disc ontinued starting 03/08/2022 End: 03-08-2022 Initiate Sepsis Narrator Initiate Sepsis Narrator Respiratory Care STAT Once for 1 Occurrences starting 03/08/2022 until 03/08/2022 [facility] Work Phone: Comment on above: Once for 1 Occurrenc es starting 03/08/2022 until 03/08/2022 End: 11-26-2025 MR Ankle - left WO contrast MRI ANKLE WO IVCON LEFT Radiology Routine Chronic pain of left ankle 1 Occurrences starting 10/27/2024 until 11/26/2025 [facility] Comment on above: 1 Occurrences starti ng 10/27/2024 until 11/26/2025 Oxygen therapy [[facility]ini [facility] Data Set] Initiate Oxygen Therapy Protocol Respiratory Care Routine Daily until discontinued starting 03/08/2022 [employer] Work Phone: Comment on above: Daily until disconti nued starting 03/08/2022 Oxygen therapy [Mini mum Data Set] Initiate Oxygen Therapy Protocol Respiratory Care Routine As Needed until discontinued starting 03/08/2022 [employer] Work Phone: Comment on above: As Needed until disc ontinued starting 03/08/2022 End: 03-19-2022 PROTIME/INR & PTT PROTIME/INR & PTT Lab Routine Daily for 10 Days starting 03/10/2022 until 03/19/2022, 2 completed [facility] Work Phone: Comment on above: Daily for [address] arting 03/10/2022 until 03/19/2022, 2 completed End: 01-17-2023 Screening mammography bi 2-view breast inc cad FUAD SCREENING Radiology Routine Encounter for screening mammogram for breast cancer 1 Occurrences starting 12/18/2021 until 01/17/2023 [facility] Work Phone: Comment on above: 1 Occurrences starti ng 12/18/2021 until 01/17/2023 End: 09-26-2022 US CAROTID ARTERIES [facility] US CAROTID ARTERIES [facility] Vascular Lab Routine Carotid artery disease, unspecified laterality, unspecified type (HCC) 1 Occurrences starting 09/26/2021 until 09/26/2022 [facility] Work Phone: Comment on above: 1 Occurrences starti ng 09/26/2021 until 09/26/2022 End: 03-08-2022 Wound ostomy eval and treat Wound ostomy eval and treat Wound Ostomy Routine One Time for 1 Occurrences starting 03/08/2022 until 03/08/2022 [employer] Work Phone: Comment on above: One Time for 1 Occur rences starting 03/08/2022 until 03/08/2022 End: 11-26-2025 XR Ankle - left AP and Lateral and oblique XR ANKLE GENERAL 3V AP/LAT/OBL LEFT Radiology Routine Sprain of left ankle, unspecified ligament, initial encounter Ankle instability, left 1 Occurrences starting 10/27/2024 until 11/26/2025 [facility] Work Phone: Comment on above: 1 Occurrences starti ng 10/27/2024 until 11/26/2025 XR Ankle - left AP a nd Lateral and oblique XR ANKLE GENERAL 3V AP/LAT/OBL LEFT Radiology Routine Sprain of left ankle, unspecified ligament, initial encounter Ankle instability, left 10/27/2024 12:04 PM EDT [facility] End: 03-12-2023 XR FOOT GENERAL 3V AP/LAT/OBL LEFT XR FOOT GENERAL 3V AP/LAT/OBL LEFT Radiology Routine Diabetic ulcer of toe 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, with fat layer exposed (HCC) 1 Occurrences starting 02/10/2022 until 03/12/2023 [facility] Work Phone: Comment on above: 1 Occurrences starti ng 02/10/2022 until 03/12/2023 End: 02-10-2022 XR FOOT GENERAL 3V AP/LAT/OBL LEFT [facility] Work Phone: Comment on above: 1 Occurrences starti ng 02/10/2022 until 02/10/2022 End: 11-26-2025 XR Tibia and Fibula - left AP and Lateral XR TIBIA FIBULA 2V AP/LAT LEFT Radiology Routine Sprain of left ankle, unspecified ligament, initial encounter Ankle instability, left 1 Occurrences starting 10/27/2024 until 11/26/2025 [facility] Comment on above: 1 Occurrences starti ng 10/27/2024 until 11/26/2025 XR Tibia and Fibula - left AP and Lateral XR TIBIA FIBULA 2V AP/LAT LEFT Radiology Routine Sprain of left ankle, unspecified ligament, initial encounter Ankle instability, left 10/27/2024 12:04 PM EDT [facility] Immunizations Immunization Date Immunization Notes Care Provider Fa awaty 03-14-2022 influenza virus vacc ine, unspecified formulation [address] 12-11-2021 COVID-19, PFIZER Bivalent BOOSTER, (age 12y+), IM, 30 mcg/0.3 mL dose BETY Jha MD Work Phone: [facility] Work Phone: 04-21-2021 COVID-19 vaccine, fu ll dose (MODERNA) Baudilio Sultana MD Work Phone: [facility] 02-21-2021 influenza, high-dose , quadrivalent vaccine (FLUZONE HIGH DOSE QUADRIVALENT) Baudilio Sultana MD Work Phone: [facility] 02-21-2021 influenza virus vacc ine, unspecified formulation Chasidy Heredia MA [facility] 09-25-2020 COVID-19 vaccine, fu ll dose (MODERNA) Baudilio Sultana MD Work Phone: [facility] 09-25-2020 COVID-19, [place] Vaccine , Vaccine Unspecified BETY Jha MD Work Phone: [facility] Work Phone: 09-25-2020 SARS-CoV-2, Unspecified [facility] [address] [facility] 08-28-2020 COVID-19 vaccine, fu ll dose (MODERNA) Baudilio Sultana MD Work Phone: [facility] Work Phone: 08-25-2020 COVID-19 vaccine, fu ll dose (MODERNA) Baudilio Sultana MD Work Phone: [facility] 08-23-2020 COVID-19, [place] Vaccine , Vaccine Unspecified BETY Jha MD Work Phone: [facility] Work Phone: 08-23-2020 SARS-CoV-2, Unspecified [facility] [address] [facility] 03-07-2020 influenza, high-dose , quadrivalent vaccine (FLUZONE HIGH DOSE QUADRIVALENT) Baudilio Sultana MD Work Phone: [facility] 05-04-2019 influenza, high dose seasonal, preservative-free Baudilio Sultana MD Work Phone: [facility] 05-04-2019 pneumococcal polysaccharide vaccine, 23 valent Baudilio Sultana MD Work Phone: [facility] 04-06-2018 influenza, high dose seasonal, preservative-free Baudilio Sultana MD Work Phone: [facility] 03-23-2017 Influenza virus vaccine [facility] 03-31-2016 zoster vaccine, live Baudilio Sultana MD Work Phone: [facility] 03-25-2016 influenza, injectabl e, quadrivalent, contains preservative Baudilio Sultana MD Work Phone: [facility] 03-02-2015 influenza, seasonal, injectable Baudilio Sultana MD Work Phone: [facility] 01-25-2015 pneumococcal conjuga te vaccine, 13 valent Baudilio Sultana MD Work Phone: [facility] 03-23-2014 influenza virus vacc ine, whole virus Baudilio Sultana MD Work Phone: [facility] 01-02-2014 Pneumococcal Vaccine [facility] Work Phone: 01-02-2014 pneumococcal vaccine , unspecified formulation Dr. Baudilio Sultana MD Work Phone: [facility] 12-28-2013 pneumococcal polysaccharide vaccine, 23 valent Baudilio Sultana MD Work Phone: [facility] 03-29-2011 influenza virus vacc ine, unspecified formulation Baudilio Sultana MD Work Phone: [facility] Work Phone: 04-15-2010 influenza virus vacc ine, unspecified formulation Baudilio Sultana MD Work Phone: [facility] Work Phone: 04-19-2009 novel influenza-H1N1 -09, all formulations Baudilio Sultana MD Work Phone: [facility] Work Phone: 04-12-2009 influenza virus vacc ine, unspecified formulation Baudilio Sultana MD Work Phone: [facility] Work Phone: 04-05-2008 influenza virus vacc ine, unspecified formulation Baudilio Sultana MD Work Phone: [facility] 04-19-2007 influenza virus vacc ine, unspecified formulation Baudilio Sultana MD Work Phone: [facility] Work Phone: 03-29-2007 tetanus toxoid, redu alfredito diphtheria toxoid, and acellular pertussis vaccine, adsorbed Baudilio Sultana MD Work Phone: [facility] Work Phone: 04-29-2006 influenza virus vacc ine, unspecified formulation Baudilio Sultana MD Work Phone: [facility] Work Phone: 04-03-2003 pneumococcal polysaccharide vaccine, 23 valent Baudilio Sultana MD Work Phone: [facility] Work Phone: 04-04-1998 pneumococcal polysaccharide vaccine, 23 valent Baudilio Sultana MD Work Phone: [facility] Payers Date Payer Category Payer Self-pay [id number] 2023 Medicare HMO [employer]N SILVERMANRE [id number] 2023 Medicaid HMO [employer] V[employer]N Wolff EDICAID ONLY Member Subscriber Plan / Payer (Effective 2023-Present) Name: Randolph Hunter Relation to Subscriber: Self Name: Randolph Hunter Payer ID: [id number] (NAIC) Group ID: [id number] Type: Medicaid HMO Address: [place] [id number] 2022 Medicare [id number] 2022 Medicare (Managed Care) [facility] DUAL COMPLETE HMO POS SNP [id number] 2022 Medicare [id number] 2021 Medicaid [id number] 2021 Medicaid [facility] MEDICAID MYC ARE [facility] MEDICAID [id number] 2021-Present [phone] [address] [place] [address] Medicaid [id number] 2021 Medicaid [id number] 2021 Medicare [id number] 2021 Medicare [id number] 2021 Medicaid MEDICAID [facility] MEDICAID [id number] 2021-Present [phone] [address] [place] [address] Medicaid [id number] 2020 Private Health Insurance 2003 Unknown [facility] [id number] PFNAN [id number] 1990 Medicare [id number] 1951 Unknown [id number] Medicare [id number] Medicare [employer] [id number] Private Health Insurance [facility] [id number] Unknown [id number] Unknown [id number] Unknown [id number] Unknown [id number] 462 Unknown [id number] 462 Unknown [id number]. 462 Unknown [id number]. 462 Unknown [id number]. 462 Unknown [id number]. 462 Unknown [id number]. 462 Unknown [id number]. 462 Unknown [id number]. 462 Unknown [id number]. 462 Unknown [id number] 462 Unknown [id number] 462 Unknown [id number]. 462 Unknown [id number]. 462 Unknown [id number]. 462 Unknown [id number] 462 Social History Date Type Detail Facility Start: 10-09-2016 End: 10-09-2021 Tobacco smoking status NHIS Never smoked tobacco [facility] Start: 08-15-2021 End: 10-27-2024 Alcohol intake Current drinker of alcohol (finding) [facility] Start: 01-02-2020 End: 09-06-2022 History SDOH Alcohol Frequency 2 [facility] Start: 01-02-2020 End: 09-06-2022 History SDOH Alcohol Std Drinks 1 [facility] Start: 01-02-2020 History SDOH Social Connections Phone 5 [facility] Start: 01-02-2020 History SDOH Social Connections Meetings 98 [facility] Start: 01-02-2020 History SDOH Social Connections Living 3 [facility] Start: 01-02-2020 History SDOH Physical Activity DPW 0 [facility] Start: 01-02-2020 History SDOH Stress 4 [facility] Start: 01-02-2020 Education 15 [facility] Start: 10-09-2016 End: 10-19-2024 Tobacco Comment Lived with 2 smoking parents for 18 years. Spouse non-smoke. [facility] Start: 1950 Sex Assigned At Not on file [facility] Start: 12-15-2020 End: 09-06-2022 Exposure to SARS-CoV-2 (event) Not sure [facility] Start: 04-22-2021 Tobacco smoking status NHIS Unknown if ever smoked [facility] Work Phone: Start: 02-27-2021 Rare [facility] Start: 02-27-2021 None [facility] Start: 06-26-2017 Spouse/ Significant Other [facility] Start: 02-27-2021 Non-smoker [facility] Start: 1950 End: 1950 Sex Assigned At Female [facility] Work Phone: Start: 10-04-2021 End: 03-10-2022 Exposure to SARS-CoV-2 (event) Unable to assess [facility] Start: 10-09-2016 End: 10-19-2024 Tobacco use and exposure Smokeless tobacco non-user [facility] Work Phone: Start: 03-08-2022 History SDOH Alcohol Comment 1 PER YEAR [facility] Work Phone: Start: 01-02-2020 End: 10-27-2024 History of Social function [facility] Start: 01-02-2020 End: 10-27-2024 Social connection and isolation panel [facility] Do you belong to any clubs or organizations such as mosque groups, unions, fraternal or athletic groups, or school groups? No [facility] How often do you att end meetings of the clubs or organizations you belong to? Patient refused [facility] Are you now , , , , never or living with a partner? [facility] How often to you hav e a drink containing alcohol? Monthly or less [facility] How many standard dr inks containing alcohol do you have on a typical day? 1 or 2 [facility] How often do you hav e 6 or more drinks on 1 occasion? Never [facility] How hard is it for y ou to pay for the very basics like food, housing, medical care, and heating Not very hard [facility] Do you feel stress - tense, restless, nervous, or anxious, or unable to sleep at night because your mind is troubled all the time - these days [OSQ] Rather much [facility] (I/We) worried [place] er (my/our) food would run out before (I/we) got money to buy more. Sometimes true [facility] The food that (I/we) bought just didn't last, and (I/we) didn't have money to get more. Never true [facility] Start: 12-03-2021 Gender identity Identifies as female gender (finding) [facility] Start: 07-09-2024 Alcohol Comment occasional [facility] Start: 04-03-2022 Sex Female (finding) [facility] Medical Equipment Procedure Code Equipment Code Equipment Original Text Equipment Identifier Dates Reinaldo Bn Smplx Hv Fd - [id number] Start: 12-26-2013 Reinaldo Bn Smplx Hv Fd - [id number] Start: 12-26-2013 Comp Fem 3 Rt Kn Reinaldo Ps Pfc - [id number] Start: 12-26-2013 Ins Tib Xlnk - [id number] Start: 12-26-2013 Comp Tibtry 3 Kn Reinaldo Mdlr Sig - [id number] Start: 12-26-2013 Dome Pat 38mm Pf c Sig Std Kn - [id number] Start: 12-26-2013 [id number], [id number], [id number], [id number], [id number], [id number] Start: 01-04-2018 End: 07-24-2021 Comment on above: [...] 01/25/2015 11:16 AM Lora Alegria Ma No [facility] 01-25-2015 Are you blind, or do you have serious difficulty seeing, even when wearing glasses Yes 01/25/2015 11:16 AM Lora Alegria Ma Yes [facility] 01-25-2015 Do you have serious difficulty walking or climbing stairs Yes 01/25/2015 11:16 AM Lora Alegria Ma Yes [facility] 01-25-2015 Do you have difficul ty dressing or bathing Yes 01/25/2015 11:16 AM Lora Alegria Ma Yes [facility] 01-25-2015 Because of a physica l, mental, or emotional condition, do you have difficulty doing errands alone such as visiting a physician's office or shopping Yes 01/25/2015 11:16 AM EDT Lora Acuna Ma Yes [facility] Mental Status Date Assessment Result Facility 01-25-2015 Because of a physica l, mental, or emotional condition, do you have serious difficulty concentrating, remembering, or making decisions No 01/25/2015 11:16 AM EDT Lora Acuna Ma No [facility] Clinical Notes 01-04-2018 to 05-01-2025 Felix David RT(R) - 10/27/2024 11:40 AM Steven Sutton - 10/27/2024 11:29 AM Del Shultz RN - 10/27/2024 10:44 AM EDTPatient InstructionsDischarge InstructionsAttachments Note Date & Type Note Facility 05-01-2025 Note HNO ID: [id number] Author: GILMER COTTON, PhD Service: ? Author Type: Psychologist Type: Progress Notes Filed: 05/01/2025 12:14 Note Text: [facility] Progress Note Randolph Hunter 05/01/2025 [id number] PROVIDER: Gilmer Cotton, PhD CPT Code: Time: [...] SAFETY SYRINGE) 1 mL 25 gauge x 10/27 Use as directed once a month. blood sugar diagnostic (Lion BiotechnologiesTOUCH VERIO TEST STRIPS) test strip Test blood sugar(s) 3 times daily. Dx: Other DM Code E11.42 Insulin: Yes ketoconazole (NIZORAL) 2 % cream Apply 1 application to affected area once daily. Syringe with Needle, Safety 3 mL 23 gauge x 1 1 Each as directed. Use one each [...] Psychiatric Medication Issues: see med record DIAGNOSIS: [place] I: Depressive Disorder rec (more content not included)... [facility] 04-26-2025 Note HNO ID: [id number] Author: SOFY SAGASTUME PA-C Service: ? Author Type: Physician Saddle Stitcher Type: Progress Notes Filed: 04/26/2025 10:59 Note [...] 13-14 years ago. - Describes neuropathy as raging and causing significant pain. - Recently began [...] weeks ago. They're urging her to use qki-cq-gtmct, but she's not comfortable. - Engages in exercises independently, including lifting a 5-pound bar daily. -not currently in PT/OT/speech Patient Entered Data PROMIS No data to display Spasticity NRS No data to display Spasm Scale No data to display Global Impression of Change No data to display Safety concerns regarding living situations and safety at home: No resides at [facility] Risk of falls: Yes during transfers Review [...] 4 Knee extension (more content not included)... [facility] 03-20-2025 Note HNO ID: [id number] Author: GILMER COTTON, PhD Service: ? Author Type: Psychologist Type: Progress Notes Filed: 03/20/2025 16:09 Note Text: [facility] Progress Note Randolph Hunter 03/20/2025 [id number] PROVIDER: Gilmer Cotton, PhD CPT Code: Time: [...] SAFETY SYRINGE) 1 mL 25 gauge x 5/8 Use as directed once a month. blood sugar diagnostic (ProntoForms VERIO TEST STRIPS) test strip Test blood sugar(s) 3 times daily. Dx: Other DM Code E11.42 Insulin: Yes ketoconazole (NIZORAL) 2 % cream Apply 1 application to affected area once daily. Syringe with Needle, Safety 3 mL 23 gauge x 1 1 Each as directed. Use one each [...] Psychiatric Medication Issues: see med record DIAGNOSIS: [place] I: Depressive Disorder recurrent Morbidly Obese CP [place] II : Deferred [place] III : See (more content not included)... [facility] 02-13-2025 Note HNO ID: [id number] Author: GILMER COTTON, PhD Service: ? Author Type: Psychologist Type: Progress Notes Filed: 02/13/2025 15:57 Note Text: [facility] Progress Note Randolph Hunter 02/13/2025 [id number] PROVIDER: Gilmer Cotton, PhD CPT Code: Time: 50 minutes Setting: Due to the federal emergency declaration and the need for ongoing mental health services, the following visit was completed virtually and informed consent obtained orally to reduce the risk of COVID-19 exposure. Oral consent to services related to virtual visits was obtained after information was sent via [employer] or read to patient if [employer] not available. Parties Present: Patient Treatment Modality/Interventions: Cognitive Behavioral [...] better [place] is now in apartments near [facility] 2 children ... 11 grandchildren Khadra due [...] SAFETY SYRINGE) 1 mL 25 gauge x 10/27 Use as directed once a month. blood sugar diagnostic (Tabulous CloudUCH VERIO TEST STRIPS) test strip Test blood sugar(s) 3 times daily. Dx: Other DM Code E11.42 Insulin: Yes ketoconazole (NIZORAL) 2 % cream Apply 1 application to affected area once daily. Syringe with Needle, Safety 3 mL 23 gauge x 1 1 Each as directed. Use one each [...] breathe hourly while awake. PT/INR test meter (SYNQY CorporationGUCHEK XS PRO) misc Check Protim (more content not included)... [facility] 01-10-2025 Note HNO ID: [id number] Author: GILMER COTTON, PhD Service: ? Author Type: Psychologist Type: Progress Notes Filed: 01/10/2025 12:09 Note Text: [facility] Progress Note Randolph L Johan 01/10/2025 [id number] PROVIDER: Gilmer Cotton, PhD CPT Code: Time: [...] SAFETY SYRINGE) 1 mL 25 gauge x 5/8 Use as directed once a month. blood sugar diagnostic (ONETOUCH VERIO TEST STRIPS) test strip Test blood sugar(s) 3 times daily. Dx: Other DM Code E11.42 Insulin: Yes ketoconazole (NIZORAL) 2 % cream Apply 1 application to affected area once daily. Syringe with Needle, Safety 3 mL 23 gauge x 1 1 Each as directed. Use one each [...] Issues: No change from previous appointment DIAGNOSIS: [place] I: Depressive Disorder recurrent Morbidly Obese CP London II : Deferred [place] III : See medical history London IV: Health London V: GAF 60-51 Moderate symptoms or moderate difficulty in (more content not included)... [facility] 12-06-2024 Note HNO ID: [id number] Author: GILMER COTTON, PhD Service: ? Author Type: Psychologist Type: Progress Notes Filed: 12/06/2024 12:04 Note Text: [facility] Progress Note Randolph Hunter 12/06/2024 [id number] PROVIDER: Gilmer Cotton, PhD CPT Code: Time: [...] illness Pt moved now a week at [facility] [place] so far and she [...] Assisted Living room while she is in [facility] rooms MEDICATIONS: Per medical record: Current [...] SAFETY SYRINGE) 1 mL 25 gauge x 5/8 Use as directed once a month. blood sugar diagnostic (ProntoForms VERIO TEST STRIPS) test strip Test blood sugar(s) 3 times daily. Dx: Other DM Code E11.42 Insulin: Yes ketoconazole (NIZORAL) 2 % cream Apply 1 application to affected area once daily. Syringe with Needle, Safety 3 mL 23 gauge x 1 1 Each as directed. Use one each [...] Issues: No change from previous appointment DIAGNOSIS: [place] I: Depressive Disorder recurrent Morbidly Obese CP [place] II : Deferred London III : See medical history London IV: Health [place] V: GAF 60-51 Moderate symptoms or moderate difficulty in social, (more content not included)... [facility] 11-08-2024 Note HNO ID: [id number] Author: SHALINI MERA RT(R) Service: ? Author [...] PATIENT PRESENTS WITH AN IMPLANTABLE OR ATTACHED WINDOW COVERING SALES CONSULTANT: No RADIOLOGY DEPARTMENT: MR; Exam(s) Completed: Lower MSK: Ankle/Hind Foot, left. Lavender Administered: No PERIPHERAL IV DATA: Not applicable SIGNED BY: RT Faustina(R) November 08, 2024 11:14 AM [facility] 11-04-2024 Note HNO ID: [id number] Author: GILMER COTTON, PhD Service: ? Author Type: Psychologist Type: Progress Notes Filed: 11/04/2024 11:56 Note Text: [facility] Progress Note Randolph Hunter 11/04/2024 [id number] PROVIDER: Gilmer Cotton, PhD CPT Code: Time: 50 minutes Setting: Due to the federal emergency declaration and the need for ongoing mental health services, the following visit was completed virtually and informed consent obtained orally to reduce the risk of COVID-19 exposure. Oral consent to services related to virtual visits was obtained after information was sent via [employer] or read to patient if [employer]hart not available. Parties Present: Patient Treatment Modality/Interventions: Cognitive Behavioral [...] / mo over a year so considering [facility] [place] is doing a walk [...] SAFETY SYRINGE) 1 mL 25 gauge x 5/8 Use as directed once a month. blood sugar diagnostic (Pr[employer]Forms VERIO TEST STRIPS) test strip Test blood sugar(s) 3 times daily. Dx: Other DM Code E11.42 Insulin: Yes ketoconazole (NIZORAL) 2 % cream Apply 1 application to affected area once daily. Syringe with Needle, Safety 3 mL 23 gauge x 1 1 Each as directed. Use one each [...] and (more content not included)... [facility] 10-27-2024 History of Present illness Narrative [...] PATIENT PRESENTS WITH AN IMPLANTABLE OR ATTACHED WINDOW COVERING SALES CONSULTANT: No RADIOLOGY DEPARTMENT: General X-ray: Exam(s) Completed: Lower Extremity X-Ray(s): Tibia Fibula, Left and Ankle, Left PERIPHERAL IV DATA: Not applicable SIGNED BY: RT Ari(Jessica) October 27, 2024 11:40 AM documented in this encounter [facility] 10-27-2024 Note HNO ID: [id number] Author: FELIX DAVID RT(R) Service: Radiology Author [...] PATIENT PRESENTS WITH AN IMPLANTABLE OR ATTACHED WINDOW COVERING SALES CONSULTANT: No RADIOLOGY DEPARTMENT: General X-ray: Exam(s) Completed: Lower Extremity X-Ray(s): Tibia Fibula, Left and Ankle, Left PERIPHERAL IV DATA: Not applicable SIGNED BY: RT Ari(R) October 27, 2024 11:40 AM [facility] 10-27-2024 Note HNO ID: [id number] Author: STEVEN PELAEZ, ? Service: ? Author [...] when standing; describes pain as feeling like somebody's constantly jabbing at the ankle. - Unable [...] SAFETY SYRINGE) 1 mL 25 gauge x 5/8 Use as directed once a month. 12 Each 0 blood sugar diagnostic (ONETOUCH VERIO TEST STRIPS) test strip Test blood sugar(s) 3 times daily. Dx: Other DM Code E11.42 Insulin: Yes 300 Strip 3 ketoconazole (NIZORAL) 2 % cream Apply 1 application to affected area once daily. 60 g 2 Syringe with Needle, Safety 3 mL 23 gauge x 1 1 Each as directed. Use one each [...] mg (more content not included)... [facility] 10-27-2024 History of Present illness Narrative [...] when standing; describes pain as feeling like somebody's constantly jabbing at the ankle. - Unable [...] SAFETY SYRINGE) 1 mL 25 gauge x 5/8 Use as directed once a month. 12 Each 0 blood sugar diagnostic (ONETOUCH VERIO TEST STRIPS) test strip Test blood sugar(s) 3 times daily. Dx: Other DM Code E11.42 Insulin: Yes 300 Strip 3 ketoconazole (NIZORAL) 2 % cream Apply 1 application to affected area once daily. 60 g 2 Syringe with Needle, Safety 3 mL 23 gauge x 1 1 Each as directed. Use one each [...] improve strength and stability. Attestation Recording using [employer] software for draft documentation of the visit was discussed with the patient/authorized sales representative raw fibers; all questions welcomed and answered. Patient/authorized sales representative raw fibers agreed to proceed Steven Pelaez DPM Patient [...] and injured herself. She is currently at [facility]. Has a history of cerebral palsy with left sided decreased sensation, but states that when she stands or puts pressure on the foot she is still having pain. XRay of left ankle was done 09/18/24. ИРИНА 12/15/23 documented in this encounter [facility] 10-27-2024 Instructions Steven Pelaez - 10/27/2024 [...] the rehab center. documented in this encounter [facility] 10-27-2024 Note HNO ID: [id number] Author: DEL ISBELL RN Service: ? Author [...] and injured herself. She is currently at [facility]. Has a history of cerebral palsy with left sided decreased sensation, but states that when she stands or puts pressure on the foot she is still having pain. XRay of left ankle was done 09/18/24. ИРИНА 12/15/23 [facility] 10-19-2024 History of Present illness Narrative [...] SAFETY SYRINGE) 1 mL 25 gauge x 5/8 Use as directed once a month. blood sugar diagnostic (ProntoForms VERIO TEST STRIPS) test strip Test blood sugar(s) 3 times daily. Dx: Other DM Code E11.42 Insulin: Yes ketoconazole (NIZORAL) 2 % cream Apply 1 application to affected area once daily. Syringe with Needle, Safety 3 mL 23 gauge x 1 1 Each as directed. Use one each [...] Status Change Penicillins Hives Dioxicillin Promethazine Intolerance Pschxfm-Lcb-Baa Red* Myalgia PAST MEDICAL HISTORY PAST MEDICAL [...] which included preparing to see the patient, vufi-fq-jeuy patient care, completing clinical documentation, obtaining and/or [...] these instructions. Informed Consent Consent Obtained: Verbal Arley Protocol A moment to CARE was completed. [...] Mendel Sharma PA-C documented in this encounter [facility] 10-19-2024 Note HNO ID: [id number] Author: MENDEL SHARMA PA-C Service: ? Author Type: Physician Saddle Stitcher Type: Progress Notes Filed: 10/19/2024 10:43 Note [...] SAFETY SYRINGE) 1 mL 25 gauge x 5/8 Use as directed once a month. blood sugar diagnostic (Lion BiotechnologiesTOUCH VERIO TEST STRIPS) test strip Test blood sugar(s) 3 times daily. Dx: Other DM Code E11.42 Insulin: Yes ketoconazole (NIZORAL) 2 % cream Apply 1 application to affected area once daily. Syringe with Needle, Safety 3 mL 23 gauge x 1 1 Each as directed. Use one each [...] Status Change Penicillins Hives Dioxicillin Promethazine Intolerance Qqdcpcf-Tpw-Cyh Red* Myalgia PAST MEDICAL HISTORY PAST MEDICAL HISTORY Diagnosis Date CAD (coronary artery disease) Carotid artery stenosis Cerebral palsy (HCC) Chronic depressive personality disorder Diarrhea Dyslipidemia Edema bilat Hirsutism Hypertension Hypothyroid Insomnia Migraines (more content not included)... [facility] 10-10-2024 Note HNO ID: [id number] Author: TRAVIS PATTERSON APRN.AUDIO VISUAL DESIGN ENGINEER Service: ? Author Type: Nurse Practitioner Type: Progress Notes Filed: 10/10/2024 16:06 Note Text: Connected Care Unit Progress Note Patient Name: Randolph Hunter Patient Facility: [facility] Admit Date 09/28/2024 Level of Care: Skilled [...] vital signs Monitor labs 9. Atherosclerosis of gambell coronary artery of gambell heart without angina pectoris - ICD9: 414.01, [...] validated via teach back Monitor safety awareness Travismargaret Patterson Appointments for Next 60 Days Date Time Provider Location Dept Phone 10/19/2024 9:30 AM MENDEL SHARMA [facility] [phone] 11/04/2024 11:00 AM GILMER COTTON [facility] [phone] 12/06/2024 11:00 AM GILMER COTTON [facility] [phone] 12/07/2024 3:40 PM RAVI MICHAEL [facility] [phone] HPI: (Per hospital discharge) Admission Information ADMIT [...] Medication (more content not included)... [facility] 10-10-2024 History of Present illness Narrative Images from the original note were not included. Connected Care Unit Progress Note Patient Name: Randolph Hunter Patient Facility: [facility] Admit Date 09/28/2024 Level of Care: Skilled [...] vital signs Monitor labs 9. Atherosclerosis of gambell coronary artery of gambell heart without angina pectoris - ICD9: 414.01, [...] Dept Phone 10/19/2024 9:30 AM MENDEL SHARMA [facility] [phone] 11/04/2024 11:00 AM GILMER COTTON [facility] [phone] 12/06/2024 11:00 AM GILMER COTTON [facility] [phone] 12/07/2024 3:40 PM RAVI MICHAEL [facility] [phone] HPI: (Per hospital discharge) Admission Information ADMIT [...] as needed if not improving 10/10/2024 update Rnadolph is sitting up in bed, she is [...] GFR- 59 mL/min/1.73 m2 >60 L Final [id number]-[id number]-[id number] 49 mL/min/1.73 m2 >60 L Final Stage [...] today,10/10/2024 This note was partially generated using [employer] voice recognition system, and there may be some incorrect words, spellings, and punctuation that were not noted in checking the note before saving. Electronically signed by Travis Patterson APRN.JOHN documented in this encounter [facility] 10-05-2024 Note HNO ID: [id number] Author: TRAVIS PATTERSON APRN.JOHN Service: ? Author Type: Nurse Practitioner Type: Progress Notes Filed: 10/05/2024 16:20 Note Text: Connected Care Unit Progress Note Patient Name: Randolph Hunter Patient Facility: [facility] Admit Date 09/28/2024 Level of Care: Skilled [...] vital signs Monitor labs 9. Atherosclerosis of gambell coronary artery of gambell heart without angina pectoris - ICD9: 414.01, [...] Dept Phone 10/19/2024 9:30 AM MENDEL SHARMA [place] [phone] 11/04/2024 11:00 AM GILMER COTTON [facility] [phone] HPI: (Per hospital discharge) Admission Information ADMIT [...] Medications (more content not included)... [facility] 10-05-2024 History of Present illness Narrative Images from the original note were not included. Connected Care Unit Progress Note Patient Name: Randolph Hunter Patient Facility: [facility] Admit Date 09/28/2024 Level of Care: Skilled [...] vital signs Monitor labs 9. Atherosclerosis of gambell coronary artery of gambell heart without angina pectoris - ICD9: 414.01, [...] Dept Phone 10/19/2024 9:30 AM MENDEL SHARMA [facility] [phone] 11/04/2024 11:00 AM GILMER COTTON [facility] [phone] HPI: (Per hospital discharge) Admission Information ADMIT [...] today,10/05/2024 This note was partially generated using [employer] voice recognition system, and there may be some incorrect words, spellings, and punctuation that were not noted in checking the note before saving. Electronically signed by Travis Patterson APRN.AUDIO VISUAL DESIGN ENGINEER documented in this encounter [facility] 09-30-2024 Note HNO ID: [id number] Author: TRAVIS PATTERSON APRN.CNP Service: ? Author Type: Nurse Practitioner Type: Progress Notes Filed: 09/30/2024 13:49 Note Text: Connected Care Unit Progress Note Patient Name: Randolph Hunter Patient Facility: [facility] Admit Date 09/28/2024 Level of Care: Skilled [...] vital signs Monitor labs 9. Atherosclerosis of gambell coronary artery of gambell heart without angina pectoris - ICD9: 414.01, [...] Dept Phone 10/04/2024 11:00 AM GILMER COTTON [facility] [phone] 10/19/2024 9:30 AM MENDEL SHARMA [facility] [phone] 11/04/2024 11:00 AM GILMER COTTON [facility] [phone] HPI: (Per hospital discharge) Admission Information ADMIT [...] Revi (more content not included)... [facility] 09-30-2024 History of Present illness Narrative Images from the original note were not included. Connected Care Unit Progress Note Patient Name: Randolph Hunter Patient Facility: [facility] Admit Date 09/28/2024 Level of Care: Skilled [...] vital signs Monitor labs 9. Atherosclerosis of gambell coronary artery of gambell heart without angina pectoris - ICD9: 414.01, [...] Dept Phone 10/04/2024 11:00 AM GILMER COTTON [facility] [phone] 10/19/2024 9:30 AM CHERYMENDEL RAMÍREZ [facility] [phone] 11/04/2024 11:00 AM GILMER COTTON Iveth [facility] [phone] HPI: (Per hospital discharge) Admission Information ADMIT [...] which included preparing to see the patient, xngn-eh-lvzb patient care, completing clinical documentation, obtaining and/or reviewing separately obtained history, performing a medically appropriate examination, counseling and educating the patient/family/caregiver, ordering medications, tests, or procedures, communicating with other HCPs (not separately reported), independently interpreting results (not separately reported), communicating results to the patient/family/caregiver, and care coordination (not separately reported). It This note was partially generated using [employer] voice recognition system, and there may be some incorrect words, spellings, and punctuation that were not noted in checking the note before saving. Electronically signed by Travis Patterson APRN.AUDIO VISUAL DESIGN ENGINEER documented in this encounter [facility] 09-28-2024 Note HNO ID: [id number] Author: KATERIN RICH RN Service: Care Management Author Type: Registered Nurse Type: Care Mgt Progress Note Filed: 09/28/2024 15:06 Note Text: CARE MANAGEMENT DISCHARGE NOTE SERVICE DATE: September 28, 2024 SERVICE TIME: 3:04 PM Admission Date: 09/18/2024 LOS: 0 days Discharge Arrangement Discharge Arrangement: Intermediate Facility Was an expedited discharge program used?: No Services Arranged Provider Name: [facility] Caregiver Assessment Caregiver is ready, willing and able to meet the patient's needs as recommended by the inter-professional team: Yes Name of Caregiver: [facility] Transportation Arrangements Transportation Arrangements: Ambulance Transportation Agency and Phone #:: [facility] [phone] Date of Trip: 09/28/24 Time of Trip: 1630 Type of Service: BLS Non-emergency Is Patient Medicaid Pending?: No Was transportation financial coverage discussed with family?: Patient 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 [facility] is able to accept patient today. Precert approval received. Patient agreeable to discharge plan. Ambulance transport via [facility] at 1630. Envelope prepared. Bedside RN updated. SIGNATURE: Katerin Rich RN PATIENT NAME: Randolph Hunter DATE: September 28, 2024 TIME: 3:03 PM [facility] 09-28-2024 Note HNO ID: [id number] Author: KATERIN RICH RN Service: Care Management Author Type: Registered Nurse Type: Care Mgt Progress Note Filed: 09/28/2024 11:21 Note Text: CARE MANAGEMENT PROGRESS NOTE SERVICE DATE: 09/28/2024 SERVICE TIME: 10:07 AM LOS: 0 days Needs Prior to Discharge: To Be Determined EMR reviewed. CM called and left VM for Ping Ramsey from the [facility] ([phone]) in regards to determination of PASRR. Awaiting return call. CM will follow. 11:00 AM Left VM for [facility] in regards to determination of PASRR. Awaiting return call. Per [employer] website noted status is completed. CM will follow. 11:21 AM SNF reviewed results in [employer] website and are able to accept patient today. CM will follow. SIGNATURE: Katerin Rich RN PATIENT NAME: Randolph Hunter DATE: September 28, 2024 TIME: 10:07 AM [facility] 09-27-2024 Note HNO ID: [id number] Author: SAGE LOERA MD Service: Hospital Medicine Author Type: Physician Type: Progress Notes Filed: 09/27/2024 18:30 Note Text: DEPARTMENT OF HOSPITAL MEDICINE PROGRESS NOTE SERVICE DATE: 09/27/2024 SERVICE TIME: 5:44 PM Hospital Medicine/Primary Attending: Sage Loera MD NIGHT AND WEEKEND COVERAGE: [employer] COVER[employer]: Nights: [phone], please page [facility] pager [phone]. 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 She is non-ambulatory at baseline due to history of CP but was concerned because of the pain to the left knee as well as concern for her current facility to care for her needs so she presented to the ED fo (more content not included)... [facility] 09-27-2024 Note HNO ID: [id number] Author: SHERYL HUITRON RN Service: Care Management Author Type: Registered Nurse Type: Care Mgt Progress Note Filed: 09/27/2024 14:00 Note Text: CARE MANAGEMENT PROGRESS NOTE SERVICE DATE: 09/27/2024 SERVICE TIME: 1:50 PM LOS: 0 days [place] checked and no determination noted on PASRR at this time. NAWAF LOPEZ called Ping Ramsey from the [facility] Board of . She confirms she completed bedside visit yesterday she checked and states she has not received any updates at this time. NAWAF LOPEZ provided direct contact and [employer] for her call with update. [facility] confirmed that insurance authorization/precert was obtained and valid until 09/29/24. SNF: [facility] updated in [facility] Transitions. Discharge Transportation: Medical Transport envelope on Chart. RN JESSICA updated patient. CM dept to follow. SIGNATURE: Sheryl Huitron RN PATIENT NAME: Randolph Hunter DATE: September 27, 2024 TIME: 1:50 PM [facility] 09-26-2024 Note HNO ID: [id number] Author: SAGE LOERA MD Service: Hospital Medicine Author Type: Physician Type: Progress Notes Filed: 09/26/2024 14:40 Note Text: DEPARTMENT OF HOSPITAL MEDICINE PROGRESS NOTE SERVICE DATE: 09/26/2024 SERVICE TIME: 1:37 PM Hospital Medicine/Primary Attending: Sage Loera MD NIGHT AND WEEKEND COVERAGE: [employer] COVERAGE: Nights: [phone], please page [facility] Night coverage pager [phone]. Probable discharge: Disposition: [facility]-assisted facility Consultants: PROCEDURES: NONE CODE STATUS: Full [...] (cerebral palsy) (HCC) (POA: Yes) --Presented to [facility] for evaluation of left knee pain [...] lupus erythematosus) (HCC) (POA: Yes) --Plaquenil as FIELD ENUMERATOR Type 2 diabetes, controlled, with neuropathy (HCC) [...] Hypomagnesemia Date Noted: 09/25/2024 HISTORY HOSPITAL COURSE: aRndolph Hunter is a 74 year old female [...] me that her left leg and knee twisted on her way to the ground and [...] urinary symptoms, skin (more content not included)... [facility] 09-26-2024 Note HNO ID: [id number] Author: SHERYL HUITRON RN Service: Care Management Author Type: Registered Nurse Type: Care Mgt Progress Note Filed: 09/26/2024 15:07 Note Text: CARE MANAGEMENT PROGRESS NOTE SERVICE DATE: 09/26/2024 SERVICE TIME: 9:41 AM LOS: 0 days 09/18/24 Admission Hospital Consults: PT. OT. O2: room air Diet: regular + supplements 09/22/24 PT recommended: SNF 09/22/24 OT recommended: SNF Discharge Plan: Intermediate Facility SNF: [facility] - Able to Accept Precert was obtained and valid 09/23-09/25. Needs Precert for SNF. PT AND OT messaged to request updated evaluations today. [facility] updated via secure message to [facility]/[place] site checked - No updates on determination. NAWAF LOPEZ called and left voice message for Ping Ramsey [phone] [facility]. Service and Support Administration request call back with update on determination. 09/26/24 9:38 AM NAWAF LOPEZ attempted another call to Ping Ramsey-No Answer/Voice Mail Box - no new message left at this time. Needs Prior to Discharge: To Be Determined, OT/PT Evaluation, Insurance Authorization, Precertification, Discharge Transportation (PASRR Level II Reveiw - Determination.) NAWAF LOPEZ met with patient at bedside to update her on discharge planning. CM Dept to Follow. 09/26/24 12:50PM NAWAF LOPEZ called Ping Ramsey from the [facility]. She informs CM that they can not see the review in there system. 09/26/24 1:00 PM NAWAF LOPEZ called and spoke with Ravi Nerissa [phone] from the [facility] He informs CM that review needs to go to the [facility] and they should be able to see the referral. NAWAF LOPEZ called Ping Ramsey back to inform her. She states she still is unable to see and states if she not receive it by end of day today she will reach out to Ravi Multani tomorrow. CM Dept to follow. 09/26/24 2:08 PM Ping Ramsey from [facility] called CM to update her that she will be completing bedside visit today between 300PM and 400PM. [facility] tasked to start insurance authorization/precert. CM Dept to follow. SIGNATURE: Sheryl Huitron RN PATIENT NAME: Randolph Hunter DATE: September 26, 2024 TIME: 9:41 AM [facility] 09-25-2024 Note HNO ID: [id number] Author: SAGE LOERA MD Service: Hospital Medicine Author Type: Physician Type: Progress Notes Filed: 09/25/2024 16:17 Note Text: DEPARTMENT OF HOSPITAL MEDICINE PROGRESS NOTE SERVICE DATE: 09/25/2024 SERVICE TIME: 12:48 PM Hospital Medicine/Primary Attending: Sage Loera MD NIGHT AND WEEKEND COVERAGE: [employer] COVERAGE: Nights: [phone], please page [facility] Night [facility] pager [phone]. Probable discharge: Disposition: [facility]-assisted facility Consultants: PROCEDURES: NONE CODE STATUS: Full [...] (cerebral palsy) (HCC) (POA: Yes) --Presented to [facility] for evaluation of left knee pain [...] lupus erythematosus) (HCC) (POA: Yes) --Plaquenil as FIELD ENUMERATOR Type 2 diabetes, controlled, with neuropathy (HCC) [...] me that her left leg and knee twisted on her way to the ground and [...] chest pain, palpitati (more content not included)... [facility] 09-24-2024 Note HNO ID: [id number] Author: SAGE LOERA MD Service: Hospital Medicine Author Type: Physician Type: Progress Notes Filed: 09/25/2024 12:46 Note Text: DEPARTMENT OF HOSPITAL MEDICINE PROGRESS NOTE SERVICE DATE: 09/25/2024 SERVICE TIME: 12:10 PM Hospital Medicine/Primary Attending: Sage Loera MD NIGHT AND WEEKEND COVERAGE: [employer] COVERAGE: Nights: [phone], please page [facility] Night coverage pager [phone]. Probable discharge: Disposition: [facility]-assisted facility Consultants: PROCEDURES: NONE CODE STATUS: Full [...] (cerebral palsy) (HCC) (POA: Yes) --Presented to [facility] for evaluation of left knee pain [...] lupus erythematosus) (HCC) (POA: Yes) --Plaquenil as FIELD ENUMERATOR Type 2 diabetes, controlled, with neuropathy (HCC) [...] me that her left leg and knee twisted on her way to the ground and [...] changes, peripheral edema, paresthesia or focal weaknesses. [facility] Course: HDS, afebrile. Labs unremarkable. Imaging including XR L KNEE/HIP/ANKLE negative for fracture. CT L KNEE negative for fracture, small joint effusion noted. The patient was admitted under (more content not included)... [facility] 09-23-2024 Note HNO ID: [id number] Author: CONCEPCION KEEN MD Service: Hospital Medicine Author Type: Physician Type: Progress Notes Filed: 09/23/2024 17:37 Note Text: DEPARTMENT OF HOSPITAL MEDICINE PROGRESS NOTE SERVICE DATE: 09/23/2024 SERVICE TIME: 5:34 PM Hospital Medicine/Primary Attending: Concepcion Keen,* NIGHT AND WEEKEND COVERAGE: [employer] COVERAGE: Days: [phone], please page attending physician. Nights: [phone], please page [facility] Night coverage pager [phone]. Subjective INTERVAL HPI: Seen and examined on [...] (Src) 98.4 (Oral) Resp 16 Ht 5' 2 (1.58m) Wt 218 lb 4.1 oz (99.0kg) [...] Drain Duration External Collection Device 09/18/24 2332 [facility] 4 days Reviewed lines and needs [...] (cerebral palsy) (HCC) (POA: Yes) --Presented to [facility] for evaluation of left knee pain after a fall at home, non-ambulatory at baseline secondary to CP but concerns for current facility ability to meet her needs --XR L KNEE/HIP/ANKLE negative for acute osseous injury -- (more content not included)... [facility] 09-23-2024 Note HNO ID: [id number] Author: SHERYL HUITRON, RN Service: Care Management Author Type: Registered Nurse Type: Care Mgt Progress Note Filed: 09/23/2024 16:53 Note Text: CARE MANAGEMENT PROGRESS NOTE SERVICE DATE: 09/23/2024 SERVICE TIME: 8:09 AM LOS: 0 days Discharge Plan: Intermediate Facility SNF: [facility] - : Able to Accept. [facility] tasked to start insurance precert for SNF. [place] PAS[place] completed. Level II Review Required. Determination: Pending. Discharge Transportation: Medical Transport - COT Transport Envelope on Chart SNF [facility] Updated in [facility] Transitions. Needs Prior to Discharge: To Be Determined, Insurance Authorization, Precertification, Discharge Transportation (PASRR Level II Determination) CM Dept to Follow. 09/23/24 11:46 AM [facility] confirms Precert Obtained: Patient has been APPROVED to admit to [facility] in the [facility] Portal starting 09/23-09/25 NRD 09/25 Auth ID [id number]. [place] PAS[place] Level II Review Determination is Still Pending. SNF: [facility] - [facility]. They can not accept until they receive the PASRR determination. CM dept to Follow. 09/23/24 4:52 PM RN CM checked [place] PASRR Document ID : [id number] - Still Pending Level II Determination. CM Dept to follow. SIGNATURE: Sheryl Huitron RN PATIENT NAME: Randolph Hunter DATE: September 23, 2024 TIME: 8:08 AM [facility] 09-22-2024 Note HNO ID: [id number] Author: CONCEPCION KEEN MD Service: Hospital Medicine Author Type: Physician Type: Progress Notes Filed: 09/22/2024 12:13 Note Text: DEPARTMENT OF HOSPITAL MEDICINE PROGRESS NOTE SERVICE DATE: 09/22/2024 SERVICE TIME: 12:12 PM Hospital Medicine/Primary Attending: Concepcion Keen,* NIGHT AND WEEKEND COVERAGE: [employer] COVERAGE: Days: [phone], please page attending physician. Nights: [phone], please page [facility] Night coverage pager [phone]. Subjective INTERVAL HPI: Seen and examined on [...] (Src) 98.2 (Oral) Resp 16 Ht 5' 2 (1.58m) Wt 218 lb 4.1 oz (99.0kg) [...] Drain Duration External Collection Device 09/18/24 2332 [facility] 3 days Reviewed lines and needs [...] (cerebral palsy) (HCC) (POA: Yes) --Presented to [facility] for evaluation of left knee pain after a fall at home, non-ambulatory at baseline secondary to CP but concerns for current facility ability to meet her needs --XR L KNEE/HIP/ANKLE negative for acute osseous injury --CT L KNEE negative for fracture, small joint eff (more content not included)... [facility] 09-22-2024 Note HNO ID: [id number] Author: CONCEPCION KEEN MD Service: Care Management Author Type: Physician Type: Raven Mgt Progress Note Filed: 09/22/2024 12:13 Note [...] neuropathy (HCC) Acquired hypothyroidism CP (cerebral palsy) ([facility]) Depression, recurrent SLE (systemic lupus erythematosus) (HCC) Pulmonary embolism (HCC) Lupus anticoagulant disorder (HCC) CKD (chronic kidney disease) Knee pain Fall at home, initial encounter Obesity, Class II, BMI 35-39.9 Resolved Problems: * No resolved hospital problems. * Attending Physician: Concepcion Keen,* [facility] 09-22-2024 Note HNO ID: [id number] Author: SHERYL HUITRON RN Service: Care Management Author Type: Registered Nurse Type: Raven Mgt Progress Note Filed: 09/22/2024 15:17 Note Text: CARE MANAGEMENT PROGRESS NOTE SERVICE DATE: 09/22/2024 SERVICE TIME: 8:35 AM SNF Referrals: [facility] - [facility]mediate AND Rehab - Able to Accept [facility] - Able to Accept Patients SNF 1st choice is pending. NAWAF LOPEZ updated Referral and requested update on acceptance. PT AND OT messaged to request updates for Precert. Patient has been updated that [facility] is still pending. Discharge Transportation: To be Determined. Needs Prior to Discharge: Accepting Facility, OT/PT Evaluation, Insurance Authorization, Precertification, Discharge Transportation CM Dept to Follow. 09/22/24 3:10 PM [facility] - Able to Accept PASR Completed in [facility] - Level II Review Required. NAWAF LOPEZ called the [facility] Board of [phone] Option 2 Service and Support Administration and spoke with Ping Ramsey at [phone]. She checked and informed CM that it has not been received from [facility] at this time. She reports she it [...] DATE: September 22, 2024 TIME: 8:35 AM [facility] 09-21-2024 Note HNO ID: [id number] Author: GILMER COTTON, PhD Service: ? Author Type: Psychologist Type: Progress Notes Filed: 09/21/2024 17:07 Note Text: [facility] Behavioral Health Department Progress Note Randolph Hunter 09/21/2024 [id number] PROVIDER: Gilmer Cotton, PhD CPT Code: Time: 30 minutes Setting: Due to the federal emergency declaration and the need for ongoing mental health services, the following visit was completed virtually and informed consent obtained orally to reduce the risk of COVID-19 exposure. Oral consent to services related to virtual visits was obtained after information was sent via [employer] or read to patient if [employer] not available. Phone ... no access to Internet since [...] PRN Psychiatric Medication Issues: as noted DIAGNOSIS: [place] I: Depressive Disorder recurrent Morbidly Obese CP [place] II : Deferred [place] III : See medical history [place] IV: Health [place] V: GAF 60-51 Moderate symptoms or moderate difficulty in social, occupational or school functioning TREATMENT PROGRESS/ASSESSMENT: Fluctuating progress. TREATMENT PLAN/GOALS: Continue in therapy focusing on self-care, stress management, affect management, anxiety management, and self-esteem. Next appointment: as scheduled Gilmer Cotton, [facility] 09-21-2024 Note HNO ID: [id number] Author: CONCEPCION KEEN MD Service: Hospital Medicine Author Type: Physician Type: Progress Notes Filed: 09/21/2024 16:30 Note Text: DEPARTMENT OF HOSPITAL MEDICINE PROGRESS NOTE SERVICE DATE: 09/21/2024 SERVICE TIME: 4:28 PM Hospital Medicine/Primary Attending: Concepcion Keen,* NIGHT AND WEEKEND COVERAGE: [employer] COVERAGE: Days: [phone], please page attending physician. Nights: [phone], please page [facility] Night coverage pager [phone]. Subjective INTERVAL HPI: Seen and examined on [...] (Src) 98.1 (Oral) Resp 18 Ht 5' 2 (1.58m) Wt 218 lb 4.1 oz (99.0kg) [...] Drain Duration External Collection Device 09/18/24 2332 [facility] 2 days Reviewed lines and needs [...] (cerebral palsy) (HCC) (POA: Yes) --Presented to [facility] for evaluation of left knee pain after a fall at home, non-ambulatory at baseline secondary to CP but concerns for current facility ability to meet her needs --XR L KNEE/HIP/ANKLE negative for acute osseous injury --CT L KNEE negative for fracture, small joint effusion noted --[place] (more content not included)... [facility] 09-21-2024 Note HNO ID: [id number] Author: SHERYL HUITRON, NAWAF Service: Care Management Author Type: Registered Nurse Type: Care Mgt Progress Note Filed: 09/21/2024 10:53 Note Text: CARE MANAGEMENT PROGRESS NOTE SERVICE DATE: 09/21/2024 SERVICE TIME: 9:19 AM LOS: 0 days Patient requesting a SNF Provider List for [place]: [id number]. [facility] SN[facility] Provider List for [place] given to patient at bedside. Needs Prior to Discharge: To Be Determined, Facility or Agency Choices, Accepting Facility, Insurance Authorization, Precertification, Discharge Transportation CM Dept to Follow. 09/21/24 10:50 AM Patient provided SNF choices in order of preference: [facility] Intermediate AND Rehab [facility] SNF Referrals sent in [facility]. Precert Needed for SNF. CM Dept to Follow. SIGNATURE: Sheryl Huitron RN PATIENT NAME: Randolph Hunter DATE: September 21, 2024 TIME: 9:19 AM [facility] 09-21-2024 Note HNO ID: [id number] Author: SHERYL HUITRON RN Service: Care Management [...] patient at bedside to discuss discharge planning. NAWAF LOPEZ discussed PT AND OT recommendations for SNF. [facility] SNF provider list given to patient. Patient informed she needs to provide 3 SNF choices in order of preference and she will require an insurance authorization/precert for SNF once she has an accepting SNF. [place] of Choice Given: Yes Level of Care Discussed: Intermediate Facility Financial Disclosure Provided: Yes Financial Disclosure Comments: [facility] SNF Provider Lists [id number] an [id number] given to patient at bedside to review and provide SNF choices. Provider List: Intermediate Facility Provider list within the patient's requested geographic area shared with the patient/family: Yes within: 15 miles of zip code: [address] (Patient also requesting a list for zip code [address].) Quality and resource use metrics shared with [...] DATE: September 21, 2024 TIME: 8:38 AM [facility] 09-20-2024 Note HNO ID: [id number] Author: CONCEPCION KEEN MD Service: Hospital Medicine Author Type: Physician Type: Progress Notes Filed: 09/20/2024 16:05 Note Text: DEPARTMENT OF HOSPITAL MEDICINE PROGRESS NOTE SERVICE DATE: 09/20/2024 SERVICE TIME: 4:04 PM Hospital Medicine/Primary Attending: Concepcion Keen,* NIGHT AND WEEKEND COVERAGE: [employer] COVERAGE: Days: [phone], please page attending physician. Nights: [phone], please page [facility] Night coverage pager [phone]. Subjective INTERVAL HPI: Seen and examined on [...] (Src) 97.3 (Oral) Resp 16 Ht 5' 2 (1.58m) Wt 218 lb 4.1 oz (99.0kg) [...] Drain Duration External Collection Device 09/18/24 2332 [facility] 1 day Reviewed lines and needs [...] (cerebral palsy) (HCC) (POA: Yes) --Presented to [facility] for evaluation of left knee pain after a fall at home, non-ambulatory at baseline secondary to CP but concerns for current facility ability to meet her needs --XR L KNEE/HIP/ANKLE negative for acute osseous injury --CT L KNEE negative for fracture, small joint effusion noted --Pain control as needed. On Lidoderm patch, Tylenol. Added oxycodone (more content not included)... [facility] 09-19-2024 Note HNO ID: [id number] Author: CONCEPICON KEEN MD Service: Hospital Medicine Author Type: Physician Type: Progress Notes Filed: 09/19/2024 14:41 Note Text: DEPARTMENT OF HOSPITAL MEDICINE PROGRESS NOTE SERVICE DATE: 09/19/2024 SERVICE TIME: 2:33 PM Hospital Medicine/Primary Attending: Concepcion Keen,* NIGHT AND WEEKEND COVERAGE: [employer] COVERAGE: Days: [phone], please page attending physician. Nights: [phone], please page [facility] Night coverage pager [phone]. Subjective INTERVAL HPI: Seen and examined on [...] (Src) 98.1 (Oral) Resp 16 Ht 5' 2 (1.58m) Wt 218 lb 4.1 oz (99.0kg) [...] Drain Duration External Collection Device 09/18/24 2332 [facility] <1 day Reviewed lines and needs [...] (cerebral palsy) (HCC) (POA: Yes) --Presented to [facility] for evaluation of left knee pain [...] --CM consulted for (more content not included)... [facility] 09-19-2024 Note HNO ID: [id number] Author: JADE SPARROW RN Service: Care Management Author Type: Registered Nurse Type: Care Mgt Initial Assessment Filed: 09/19/2024 10:28 Note Text: CARE MANAGEMENT: ASSESSMENT AND DISCHARGE PLAN SERVICE DATE: September 19, 2024 SERVICE TIME: 10:26 AM PCP: Raf Casey MD, MD Primary Contact: Extended Emergency Contact Information Primary Emergency Contact: Harper Hunter (HCPOA) Mobile Relation: Son Admission Status: Observation Insurance Provider: [facility] DUAL COMPLETE HMO POS SNP Discharge Planning requested by: Per Department Practice Potential Transition Plans To Be Determined Advance Directives Current Advance Directive: Health Care Power of [employer], Living Will In Chart: Yes Up To Date and Valid: Yes Current Living Arrangements and Support Lives with: Spouse/significant other Type of Residence: Assisted Living Facility Does the patient have to climb stairs at home?: No Care Facility Name: [facility] Support: Children, Spouse/significant other How do you manage to accomplish the following: Independent: Medication Management Needs Assistance: Bathe/Shower, Dress, Going to the bathroom Dependent: Ambulation, Meals/Meal Prep, Transportation to appointments/community Current Services/Equipment Current Post-Acute Service(s): DME Current DME Type: Wheelchair-manual, Other: See Comment, Bedside commode (Lift Chair) Discharge Planning Patient Goal(s): Increase strength [place] of Choice Explained: [place] of Choice Given: No Reason Not Given: Unable to complete with this assessment - revisit Are you interested in bedside delivery of your medications? No Discharge Planning Participant(s): Patient Patient/Family Comments: Caregiver Assessment: Caregiver is ready, willing and able to meet the patient's needs as recommended by the inter-professional team: Other: See Comment (From [facility]) Transport at Discharge: Transportation Arrangements: Ambulance Needs Prior to Discharge: Needs Prior to Discharge: OT/PT Evaluation Post-Acute Discharge Plan: Review of the chart and met with the patient. The patient states she lives with her at [facility] in [place]. States pivots from her lift chair to her wheelchair and able to pivot from her wheelchair to her BSC. The patient states the [facility] provides her meals and laundry services, the patient takes care of her own medications. PT evals- Pending. CM department will continue to follow for DC needs. SIGNATURE: Jade Sparrow RN PATIENT NAME: Randolph Hunter DATE: September 19, 2024 TIME: 10:26 AM [facility] 09-02-2024 Note HNO ID: [id number] Author: GILMER COTTON, PhD Service: ? Author Type: Psychologist Type: Progress Notes Filed: 09/02/2024 12:02 Note Text: [facility] Behavioral Health Department Progress Note Randolph Hunter 09/02/2024 [id number] PROVIDER: Gilmer Cotton, PhD CPT Code: Time: 50 minutes Setting: Due to the federal emergency declaration and the need for ongoing mental health services, the following visit was completed virtually and informed consent obtained orally to reduce the risk of COVID-19 exposure. Oral consent to services related to virtual visits was obtained after information was sent via [employer] or read to patient if [employer] not available. Parties Present: Patient Treatment Modality/Interventions: Cognitive Behavioral [...] SAFETY SYRINGE) 1 mL 25 gauge x 5/8 Use as directed once a month. blood sugar diagnostic (ProntoForms VERIO TEST STRIPS) test strip Test blood sugar(s) 3 times daily. Dx: Other DM Code E11.42 Insulin: Yes ketoconazole (NIZORAL) 2 % cream Apply 1 application to affected area once daily. Syringe with Needle, Safety 3 mL 23 gauge x 1 1 Each as directed. Use one each [...] car (more content not included)... [facility] 08-05-2024 Note HNO ID: [id number] Author: GILMER COTTON, PhD Service: ? Author Type: Psychologist Type: Progress Notes Filed: 08/05/2024 12:29 Note Text: [facility] Behavioral Health Department Progress Note Randolph Hunter 08/05/2024 [id number] PROVIDER: Gilmer Cotton, PhD CPT Code: Time: [...] SAFETY SYRINGE) 1 mL 25 gauge x 5/8 Use as directed once a month. blood sugar diagnostic ([employer] CloudUCH VERIO TEST STRIPS) test strip Test blood sugar(s) 3 times daily. Dx: Other DM Code E11.42 Insulin: Yes ketoconazole (NIZORAL) 2 % cream Apply 1 application to affected area once daily. Syringe with Needle, Safety 3 mL 23 gauge x 1 1 Each as directed. Use one each [...] Psychiatric Medication Issues: see med record DIAGNOSIS: [place] I: Depressive Disorder recurrent Morbidly Obese CP London II : Deferred London III : See medical history London IV: Health London V: GAF 60-51 Moderate symptoms or moderate difficulty in social, o (more content not included)... [facility] 07-10-2024 Emergency department Note Pt resting quietly in bed with blanket over face. Respirations even and non labored. No coughing noted at this time. Await transport by Vasquez Cantor. [facility] 07-10-2024 Emergency department Note Pt resting quietly in bed with blanket over face. Respirations even and non labored. No coughing noted at this time. Await transport by Vasquez Cantor. Dr. Jha at bedside. Dr. Jha to [...] TABLET Place under the tongue. NYSTATIN (MYCOSTATIN) 919423 UNIT/GM POWDER Apply topically 2 times daily. [...] Risk (01/02/2020) Received from [facility] Overall Financial Resource Strain (CARDIA) Difficulty of Paying Living Expenses: Not very hard Food Insecurity: Food Insecurity Present (01/02/2020) Received from [facility] Hunger Vital Sign Worried About Running Out of Food in the Last Year: Sometimes true Ran Out of Food in the Last Year: Never true Transportation Needs: Unmet Transportation Needs (01/02/2020) Received from [facility] PRAPARE - Transportation Lack of Transportation (Medical): Yes Lack of Transportation (Non-Medical): Yes Physical Activity: Inactive (01/02/2020) Received from [facility] Exercise Vital Sign Days of Exercise per Week: 0 days Minutes of Exercise per Session: 0 min Stress: Stress Concern Present (01/02/2020) Received from [facility] [employer] - Occupational Stress Questionnaire Feeling of Stress : Rather much Social Connections: Moderately Isolated (01/02/2020) Received from [facility] Social Connection and Isolation Panel [NHANES] Frequency of Communication with Friends and Family: More than three times a week Frequency of Social Gatherings with Friends and Family: Never Attends Sabianist Services: Never Active Member of Clubs or [...] kg (214 lb) Height: 1.575 m (5' 2) The patient presented with a chief complaint of a worsening cough. The differential diagnosis associated with this patient's presentation includes but is not limited to: Presentation concerning for esophageal foreign body versus aspiration versus pneumonia versus viral illness. Our workup consisted of ordering/reviewing: chest x-ray. I reviewed external records from: [facility] demonstrating 62 prescriptions, to include gabapentin and [place] Chest x-ray negative for consolidation upon my [...] Discharge 07/10/2024 12:55:44 AM [place] [facility] [place] [address] Schedule an appointment as soon as possible [...] Jha MD 07/10/24202 documented in this encounter [facility] 07-10-2024 Hospital Discharge instructions Александр Jha MD - 07/10/2024 12:56 AM EST If the Tessalon Perles do not work, you may purchase cough syrup [id number]. Please return to the emergency department if your symptoms change or worsen. The following attachments cannot be sent through Care Everywhere.Cough in Adults (Chilean)documented in this encounter [facility] 07-10-[address] Jha at bedside. [facility] 07-09-[address] Jha to bedside. Pt given water. [facility] 07-09-2024 Physician Emergency department Note EMERGENCY DEPARTMENT [...] TABLET Place under the tongue. NYSTATIN (MYCOSTATIN) [id number] UNIT/GM POWDER Apply topically 2 times daily. [...] Risk (01/02/2020) Received from [facility] Overall Financial Resource Strain (CARDIA) Difficulty of Paying Living Expenses: Not very hard Food Insecurity: Food Insecurity Present (01/02/2020) Received from [facility] Hunger Vital Sign Worried About Running Out of Food in the Last Year: Sometimes true Ran Out of Food in the Last Year: Never true Transportation Needs: Unmet Transportation Needs (01/02/2020) Received from [facility] PRAPARE - Transportation Lack of Transportation (Medical): Yes Lack of Transportation (Non-Medical): Yes Physical Activity: Inactive (01/02/2020) Received from [facility] Exercise Vital Sign Days of Exercise per Week: 0 days Minutes of Exercise per Session: 0 min Stress: Stress Concern Present (01/02/2020) Received from [facility] [employer] - Occupational Stress Questionnaire Feeling of Stress : Rather much Social Connections: Moderately Isolated (01/02/2020) Received from [facility] Social Connection and Isolation Panel [NHANES] Frequency of Communication with Friends and Family: More than three times a week Frequency of Social Gatherings with Friends and Family: Never Attends Sabianist Services: Never Active Member of Clubs or [...] kg (214 lb) Height: 1.575 m (5' 2) The patient presented with a chief complaint of a worsening cough. The differential diagnosis associated with this patient's presentation includes but is not limited to: Presentation concerning for esophageal foreign body versus aspiration versus pneumonia versus viral illness. Our workup consisted of ordering/reviewing: chest x-ray. I reviewed external records from: PDMP demonstrating 62 prescriptions, to include gabapentin and [place] Chest x-ray negative for consolidation upon my [...] Discharge 07/10/2024 12:55:44 AM [place] [facility] Address: [address] , [place] [address] Schedule an appointment as soon as possible [...] Emergency Medicine Provider Александр Jha MD 07/10/24202 [facility] 06-30-2024 Note HNO ID: [id number] Author: GILMER COTTON, PhD Service: ? Author Type: Psychologist Type: Progress Notes Filed: 06/30/2024 11:53 Note Text: [facility] Behavioral Health Department Progress Note Randolph Hunter 06/30/2024 [id number] PROVIDER: Gilmer Cotton, PhD CPT Code: Time: 50 minutes Setting: Due to the federal emergency declaration and the need for ongoing mental health services, the following visit was completed virtually and informed consent obtained orally to reduce the risk of COVID-19 exposure. Oral consent to services related to virtual visits was obtained after information was sent via [employer] or read to patient if [employer] not available. Parties Present: Patient Treatment Modality/Interventions: Cognitive Behavioral [...] be a leader to work w the [employer] and can work w the [employer] That may likely help her mood in [...] SAFETY SYRINGE) 1 mL 25 gauge x 5/8 Use as directed once a month. blood sugar diagnostic (ProntoForms VERIO TEST STRIPS) test strip Test blood sugar(s) 3 times daily. Dx: Other DM Code E11.42 Insulin: Yes ketoconazole (NIZORAL) 2 % cream Apply 1 application to affected area once daily. Syringe with Needle, Safety 3 mL 23 gauge x 1 1 Each as directed. Use one each [...] (CO (more content not included)... [facility] 05-02-2024 Note HNO ID: [id number] Author: GILMER COTTON, PhD Service: ? Author Type: Psychologist Type: Progress Notes Filed: 05/02/2024 12:11 Note Text: [facility] Behavioral Health Department Progress Note Randolph Hunter 05/02/2024 [id number] PROVIDER: Gilmer Cotton, PhD CPT Code: Time: [...] SAFETY SYRINGE) 1 mL 25 gauge x 5/8 Use as directed once a month. blood sugar diagnostic (Tabulous CloudUCH VERIO TEST STRIPS) test strip Test blood sugar(s) 3 times daily. Dx: Other DM Code E11.42 Insulin: Yes ketoconazole (NIZORAL) 2 % cream Apply 1 application to affected area once daily. Syringe with Needle, Safety 3 mL 23 gauge x 1 1 Each as directed. Use one each [...] Issues: No change from previous appointment DIAGNOSIS: London I: Depressive Disorder recurrent Morbidly Obese CP London II : Deferred London III : See medical history London IV: Health London V: GAF 60-51 Moderate symptoms or moderate difficulty in social, occupational or school functioning TREATMENT PROGRESS/ASSESSMENT: Progressing satisfactorily. TREATMENT PLAN/GOALS: (more content not included)... [facility] 02-10-2024 History of Present illness Narrative [...] Test Results/Process Orders 10 [] Staff telephones [facility], Nursing Homes/Clarify Orders 10 [] Routine Transfer [...] with plan . documented in this encounter [facility] 02-10-2024 Hospital Discharge instructions Maria Isabel Wilson RN - 02/10/2024 10:45 AM EDT Ordered treatment completed and patient is healed. Patient discharged without any issues. All questions answered. Call the clinic if your wound reopens or a new wound appears at [phone]. Edema/Swelling: Avoid standing for long periouds of [...] promote wound healing documented in this encounter [facility] 01-27-2024 History of Present illness Narrative Associated Order(s): Debridement Post-Procedure Diagnose(s): Pressure ulcer of right foot, stage 3 (HCC) Images from the original note were not included. [facility] Wound Care Progress Note CHIEF COMPLAINT: Wound [...] the correct patient, procedure, equipment, learning support aide, and site/side marked as required. Debridement Details [...] Pressure ulcer of right foot, stage 3 ([facility]) PLAN: Patient examined and evaluated. Pt ed, [...] attached Discharge Instructions documented in this encounter [facility] 01-27-2024 Hospital Discharge instructions Maria Isabel Wilson RN - 01/27/2024 1:15 PM EDT Follow-up Appointments: Return Appointment in 1 week. Call [place] wound [facility] at [phone], [facility] at [phone], or [facility] Wound center at [phone]. Edema/Swelling: Avoid standing for long periouds of [...] secure with tape. documented in this encounter [facility] 01-27-2024 Note [facility] Wound Care Progress Note CHIEF COMPLAINT: Wound [...] the correct patient, procedure, equipment, learning support aide, and site/side marked as required. Debridement Details [...] Paper tape Please see attached Discharge Instructions [facility] 01-20-2024 History of Present illness Narrative Associated Order(s): Debridement Post-Procedure Diagnose(s): Pressure ulcer of right foot, stage 3 (HCC) Images from the original note were not included. [facility] W[facility] OSTOM[facility] [address] [place] [address] Loc: [phone] Wound Care Visit - New Patient Progress [...] ti,es a day, Disp: , Rfl: HYDROcodone-acetaminophen ([place]) 5-325 MG tablet, Take 1 tablet by [...] the tongue., Disp: , Rfl: nystatin (Mycostatin) 045012 UNIT/GM powder, Apply topically 2 times daily., [...] C (97.2 F) Resp 18 Ht 5' 2 (1.575 m) Wt 213 lb (96.6 kg) [...] the correct patient, procedure, equipment, learning support aide, and site/side marked as required. Debridement Details [...] (Active) Wound Image 01/20/24 1448 Site Assessment Red;[place] 01/20/24 1448 Andra-Wound Assessment [place] 01/20/24 1448 [...] Test Results/Process Orders 10 [x] Staff telephones [facility], Nursing Homes/Clarify Orders 10 [] Routine Transfer [...] or more Points) documented in this encounter [facility] 01-20-2024 Hospital Discharge instructions Maria Isabel Wilson RN - 01/20/2024 2:45 PM EDT Follow-up Appointments: Return Appointment in 1 week. Call [place] wound center at [phone], [facility] at [phone], or [facility] Wound center at [phone]. Edema/Swelling: Avoid standing for long periouds of [...] secure with tape. documented in this encounter [facility] 01-20-2024 Note Encounter addended b y: Tania Osei RN on: 01/21/2024 10:33 AM Actions taken: Care Teams modified, LDA properties accepted, Charge Capture section accepted [facility] 12-16-2023 Emergency department Note Patient wheeled out ED for transport to residence. discharge instructions sent to facility with patient. No further questions. Respirations even and non labored. No acute distress. A&O x4. Gifty Cornell RN 12/16/23 0015 [facility] 12-16-2023 Emergency department Note Patient [...] Risk (01/02/2020) Received from [facility] Overall Financial Resource Strain (CARDIA) Difficulty of Paying Living Expenses: Not very hard Food Insecurity: Food Insecurity Present (01/02/2020) Received from [facility] Hunger Vital Sign Worried About Running Out of Food in the Last Year: Sometimes true Ran Out of Food in the Last Year: Never true Transportation Needs: Unmet Transportation Needs (01/02/2020) Received from [facility] PRAPARE - Transportation Lack of Transportation (Medical): Yes Lack of Transportation (Non-Medical): Yes Physical Activity: Inactive (01/02/2020) Received from [facility] Exercise Vital Sign Days of Exercise per Week: 0 days Minutes of Exercise per Session: 0 min Stress: Stress Concern Present (01/02/2020) Received from [facility] [employer] - Occupational Stress Questionnaire Feeling of Stress : Rather much Social Connections: Moderately Isolated (01/02/2020) Received from [facility] Social Connection and Isolation Panel [NHANES] Frequency of Communication with Friends and Family: More than three times a week Frequency of Social Gatherings with Friends and Family: Never Attends Sabianist Services: Never Active Member of Clubs or [...] DEPARTMENT COURSE and DIFFERENTIAL DIAGNOSIS/MDM: Vitals: Vitals: 12/15/234 BP: (!) 144/63 Pulse: 72 Resp: 16 Temp: 36.3 C (97.3 F) TempSrc: Tympanic SpO2: 98% Weight: 96.6 kg (213 lb) Height: 1.651 m (5' 5) ED Course as of 12/15/231848Dec 15, 20231826 [...] about putting in her observation unit at [facility] for 24 hours of IV antibiotics [...] MD 12/15/231935 Patient to room 7 via [facility] for c/o a left foot ulcer, lower leg erythema, and a headache. Patient reports she has had her foot ulcer for a couple of months. V/S obtained, call light within reach. documented in this encounter [facility] 12-15-2023 Hospital Discharge instructions Karen Gallardo MD [...] Care Everywhere.Cellulitis (Skin Infection) Discharge Instructions, Adult (Chilean)documented in this encounter [facility] 12-15-2023 Emergency department Triage note Patient to room 7 via [facility] for c/o a left foot ulcer, lower leg erythema, and a headache. Patient reports she has had her foot ulcer for a couple of months. V/S obtained, call light within reach. [facility] 12-15-2023 Physician Emergency department Note EMERGENCY DEPARTMENT [...] Risk (01/02/2020) Received from [facility] Overall Financial Resource Strain (CARDIA) Difficulty of Paying Living Expenses: Not very hard Food Insecurity: Food Insecurity Present (01/02/2020) Received from [facility] Hunger Vital Sign Worried About Running Out of Food in the Last Year: Sometimes true Ran Out of Food in the Last Year: Never true Transportation Needs: Unmet Transportation Needs (01/02/2020) Received from [facility] PRAPARE - Transportation Lack of Transportation (Medical): Yes Lack of Transportation (Non-Medical): Yes Physical Activity: Inactive (01/02/2020) Received from [facility] Exercise Vital Sign Days of Exercise per Week: 0 days Minutes of Exercise per Session: 0 min Stress: Stress Concern Present (01/02/2020) Received from [facility] [employer] - Occupational Stress Questionnaire Feeling of Stress : Rather much Social Connections: Moderately Isolated (01/02/2020) Received from [facility] Social Connection and Isolation Panel [NHANES] Frequency of Communication with Friends and Family: More than three times a week Frequency of Social Gatherings with Friends and Family: Never Attends Sabianist Services: Never Active Member of Clubs or [...] kg (213 lb) Height: 1.651 m (5' 5) ED Course as of 12/15/231848Dec 15, 20231826 [...] Emergency Medicine Provider Gloria Bangura DO 12/15/231848 [facility] 12-15-2023 Physician Emergency department Note This patient [...] about putting in her observation unit at [facility] for 24 hours of IV antibiotics versus discharging home with oral antibiotics. After shared decision-making she elected to go home. I do think that this is a safe plan. She lives in assisted living and they can help her with continuing to monitor her wound. Gave her strict return precautions and discharged in stable condition. Karen Gallardo MD 12/15/231935 [facility] 07-20-2023 Emergency department Note Physician's arrived; pt removed from urine collection device and pts own attends placed on pt per her request. Pts belongings in bag at bedside. Report to Physician's. Veronika Bae RN 07/20/23 0844 [facility] 07-20-2023 Emergency department Note Physician's arrived; pt [...] states they will have a stretcher here within the hour. Veronika Bae RN 07/20/23 0717 Patient pressed call light to request pain medication. States pain is in shoulders and down the back from laying on the tables. MD notified Gifty Cornell RN 07/20/23 0044 Report given to Gifty MCCRACKEN & Chasidy MCCRACKEN. Patient still in radiology. Pia Caraballo RN 07/19/23 3852 Dispo per imaging :) Chasidy Fernandez RN 07/19/232253 Pt placed up for discharge. No discharge paperwork complete at this time. Once orders are complete and discharge paperwork complete by ER Pt will be discharged. Chasidy Fernandez RN 07/19/23 639 This RN requested orders from ER DR. [...] herself off the ground), they may have wrenched my neck in the process. Denies any focal numbness [...] the left knee Report Dictated on Workstation: [employer] Electronically Signed By: Phan Sepulveda MD Electronically Signed Date/Time: 07/19/2023 11:53 PM EST XR knee 3 views left Final Result 1. Right knee arthroplasty in adequate alignment 2. Unremarkable right hip 3. Osteoarthritis of the left knee Report Dictated on Workstation: [employer] Electronically Signed By: Phan Sepulveda MD Electronically Signed Date/Time: 07/19/2023 11:53 PM EST XR knee 3 views right Final Result 1. Right knee arthroplasty in adequate alignment 2. Unremarkable right hip 3. Osteoarthritis of the left knee Report Dictated on Workstation: [employer] Electronically Signed By: Phan Sepulveda MD Electronically [...] kg (239 lb) Height: 1.575 m (5' 2) Medications HYDROcodone-acetaminophen ([place]) 5-325 MG per tablet 1 tablet (has no administration in time range) HYDROcodone-acetaminophen ([place]) 5-325 MG per tablet 1 tablet (1 tablet Oral Given 07/19/232030) 72-year-old female presents for frequent falls, is in a skilled nursing for this purpose, complains of right hip pain and right knee pain and neck pain MDM elements: The patient presented with chief complaint of see above. The differential diagnosis associated with this patient's presentation includes right hip pain from contusion versus fracture of the right hip versus pelvic fracture. Will evaluate bilateral knees for underlying fractures. Patient is on Coumadin and fails Israeli CT head rules and CT C-spine rules by virtue of age, needs CT head and CT cervical spine as well. Pain controlled with [place]. No lab work required, this was mechanical fall to which the patient is very vulnerable and for which purpose she is in a skilled nursing with PT and 24/7 wheelchair. Our workup consisted of ordering/reviewing: X-ray bilateral knees x-ray right femur CT pelvis without contrast, CT head and neck without contrast. To aid in management, I performed an independent interpretation of Xray(s) see below CT scan(s) see below. I also reviewed external records from the medical center to obtain collateral history. The [...] this is why she lives in a skilled nursing with 24/7 monitoring and physical therapy that visits her every day. I encouraged her to stay in her wheelchair to get around safely, and if she is transferring from the wheelchair to the toilet or other maneuvers at home, she should do so with nursing staff or PT nearby. She is already on [place] at home for pain so no additional [...] Mendez who is her osteoarthritis specialist in [place]; this is very good follow-up. The patient [...] toilet when she fell. She resides at [address] She currently is working with a physical therapist and is in a wheelchair. Patient hooked up to [employer] due to incontinence. She also has right knee bruising that is from her repeatedly hitting it on her wheelchair. She denies hitting her head or neck during fall. She is on coumadin. Call light within reach. documented in this encounter [facility] 07-20-2023 Emergency department Note [facility] arrived with an ambulette/wheelchair van. Chasidy RN spoke with Physician[facility] to inform them that the pt is non ambulatory and needed a stretcher. Physician's states they will have a stretcher here within the hour. Veronika Bae RN 07/20/23 0717 [facility] 07-20-2023 Hospital Discharge instructions Cuba Anna MD [...] should follow-up with Dr. [facility] to ensure that you are [...] attachments cannot be sent through Care Everywhere.Osteoarthritis (Chilean)Preventing Falls in Older Adults (Chilean)Hip Pain ED (Chilean)documented in this encounter [facility] 07-20-2023 Emergency department Note Patient pressed call light to request pain medication. States pain is in shoulders and down the back from laying on the tables. notified Gifty Cornell RN 07/20/23 0044 [facility] [employer] 07-19-2023 Emergency department Note Report given to Gifty MCCRACKEN & Chasidy RN. Patient still in radiology. Pia Caraballo RN 07/19/[address] [facility] 07-19-2023 Emergency department Note Dispo per imaging :) Chasidy Fernandez RN 07/19/232253 [facility] 07-19-2023 Emergency department Note Pt placed up for discharge. No discharge paperwork complete at this time. Once orders are complete and discharge paperwork complete by ER DR Pt will be discharged. Chasidy Fernandez RN 07/19/232251 [facility] 07-19-2023 Emergency department Note This RN requested orders from ER DR. Chasidy Fernandez RN 07/19/232025 [facility] 07-19-2023 Emergency department Triage note Patient is here for right hip pain. She was transferring to the toilet when she fell. She resides at [address] She currently is working with a physical therapist and is in a wheelchair. Patient hooked up [facility] due to incontinence. She also has right knee bruising that is from her repeatedly hitting it on her wheelchair. She denies hitting her head or neck during fall. She is on coumadin. Call light within reach. [facility] 07-19-2023 Physician Emergency department Note EMERGENCY [...] herself off the ground), they may have wrenched my neck in the process. Denies any focal numbness [...] kg (239 lb) Height: 1.575 m (5' 2) Medications HYDROcodone-acetaminophen ([place]) 5-325 MG per tablet 1 tablet (has no administration in time range) HYDROcodone-acetaminophen ([place]) 5-325 MG per tablet 1 tablet (1 tablet Oral Given 07/19/232030) 72-year-old female presents for frequent falls, is in a skilled nursing for this purpose, complains of right hip pain and right knee pain and neck pain MDM elements: The patient presented with chief complaint of see above. The differential diagnosis associated with this patient's presentation includes right hip pain from contusion versus fracture of the right hip versus pelvic fracture. Will evaluate bilateral knees for underlying fractures. Patient is on Coumadin and fails Israeli CT head rules and CT C-spine rules by virtue of age, needs CT head and CT cervical spine as well. Pain controlled with [place]. No lab work required, this was mechanical fall to which the patient is very vulnerable and for which purpose she is in a skilled nursing with PT and 24/7 wheelchair. Our workup consisted of ordering/reviewing: X-ray bilateral knees x-ray right femur CT pelvis without contrast, CT head and neck without contrast. To aid in management, I performed an independent interpretation of Xray(s) see below CT scan(s) see below. I also reviewed external records from the medical center to obtain collateral history. The [...] this is why she lives in a skilled nursing with 24/7 monitoring and physical therapy that visits her every day. I encouraged her to stay in her wheelchair to get around safely, and if she is transferring from the wheelchair to the toilet or other maneuvers at home, she should do so with nursing staff or PT nearby. She is already on [place] at home for pain so no additional [...] Mendez who is her osteoarthritis specialist in [place]; this is very good follow-up. The patient [...] Medicine Provider Cuba Anna MD 07/20/23 0110 [facility] 09-06-2022 Emergency department Note RN called back from Residence for report after patient left. This RN updated RN. No questions or concerns Lucy Jones RN 09/06/22 1115 [facility] 09-06-2022 Emergency department Note RN called back from Residence for report after patient left. This RN updated RN. No questions or concerns Lucy Jones RN 09/06/22 1115 This RN attempted report at [facility] for patient. RN's busy, receptionist secretary took RN name and number to return call for report if wanted. Lucy Jones RN 09/06/22 1018 DM ETA 20-30 min ([id number]) Lucy Jones RN 09/06/22 0953 Patient resting [...] RN 09/06/22 022 Emergency Department Encounter Location: [facility] EMERGENCY [facility]PT Patient: Patsy Juan : [...] 445 ms QTC Interval 457 ms P [place] 49 degrees QRS [place] -29 degrees T Wave [place] 11 degrees [place] Interval 149 ms XR shoulder 2+ views [...] Result Upper pelvis is excluded from the lqtcf-uh-fehe. No fracture or dislocation of the imaged [...] are mis-transcribed.) OSMAN MCCORMACK MD Acute Care [facility] Osman Mccormack MD 09/06/221522 Emergency Department Encounter Location: [facility] EMERGENCY DEPT Patient: Patsy Juan : 1950 Date of evaluation: 09/06/2022 ED Provider: Gloria Frost, DO Time received sign-out: 7am Patsy Juan [...] 445 ms QTC Interval 457 ms P [place] 49 degrees QRS [place] -29 degrees T Wave [place] 11 degrees [place] Interval [address] head wo IV [...] Result Upper pelvis is excluded from the hadys-xb-jzfh. No fracture or dislocation of the imaged [...] RN 09/06/22 0221 documented in this encounter [facility] 09-06-2022 Emergency department Note This RN attempted report at [facility] for patient. RN's busy, receptionist secretary took RN name and number to return call for report if wanted. Lucy Jones RN 09/06/22 1018 [facility] 09-06-2022 Emergency department Note DM ETA 20-30 min (1954-1325) Lucy Jones RN 09/06/22 0953 [facility] 09-06-2022 Hospital Discharge instructions Gloria Frost DO [...] through Care Everywhere.Getting Up From a Fall (Chilean)documented in this encounter [facility] 09-06-2022 Emergency department Note Patient resting with eyes closed. Respirations even and unlabored. RN called about work order for call light / panel. Will be there soon to fix. Lucy Jones RN 09/06/22 0944 [facility] 09-06-2022 History of Present illness Narrative Department of Trauma / Critical Care Tertiary Survey Date of Trauma: 09/06/2022 1:36 AM MARIANELA/HPI: 72 y.o. female status post fall from standing. The incident happened around 0120 on 09/06/22 at [facility]. When the event happened the [...] 09/06/2022 [facility] 1950 [id number] Exam Date/Time: 09/06/2022 02:47 Procedure: XR SHOULDER [...] Report Dictated on Electronically Signed By: Gloria Wheelergyaleremy Electronically Signed Date/Time: 09/06/2022 8:39 AM EDT [...] note: Upper pelvis is excluded from the nmoqk-te-oyxe. COMPARISON: None. FINDINGS: There is no evidence for fracture or dislocation. The hips joints are unremarkable. The imaged sacroiliac joints are normal. No bone lesion is identified. There is no soft tissue abnormality. Surgical clips project over the right groin. Upper pelvis is excluded from the zuapr-xz-osde. 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 Patient aware, patient door and curtain open. RN went in at this time. Patient wanted to check to see if she had BM. RN also made sure purewick in good position. RN will get vitals and look at orders at this time Lucy Jones RN 09/06/22 0739 [facility] 09-06-2022 Note NOTE: This result is for medical treatment only. Analysis performed using non-forensic procedures. [facility] 09-06-2022 Emergency department Note Pt to x-ray in stable condition. Bárbara Hogan RN 09/06/22225 [facility] 09-06-2022 Emergency department Note Report of to bárbara Younger RN 09/06/22220 [facility] 09-06-2022 Emergency department Note Bed: 23 Expected date: Expected time: Means of arrival: Comments: SX TEAM Aaron Wallace RN 09/06/22220 [facility] 09-06-2022 Physician Emergency department Note Emergency Department Encounter Location: [facility] EMERGENCY DEPT Patient: Patsy Juan : [...] 445 ms QTC Interval 457 ms P [place] 49 degrees QRS [place] -29 degrees T Wave [place] 11 degrees [place] Interval 149 ms XR shoulder 2+ views [...] Result Upper pelvis is excluded from the pdcnl-sd-fxmf. No fracture or dislocation of the imaged [...] are mis-transcribed.) OSMAN MCCORMACK MD Acute Care [facility] Osman Mccormack MD 09/06/22 1523 [employer] Phone: 09-06-2022 Physician Emergency department Note Emergency Department Encounter Location: [facility] EMERGENCY DEPT Patient: Patsy Juan : [...] 445 ms QTC Interval 457 ms P [place] 49 degrees QRS [place] -29 degrees T Wave [place] 11 degrees [place] Interval [address] head wo IV [...] Result Upper pelvis is excluded from the hpten-su-ceel. No fracture or dislocation of the imaged [...] but occasionally words are mis-transcribed.) Gloria Frost, [employer] Gloria Frost, Resident 09/06/22 1314 [employer] Phone: 04-25-2022 Miscellaneous Notes Left a detailed message for patient. Let her know that new PCP will need to be notified if there is issues with filling medicaiton. Advised to contact office with questions. I will send patient a Mychart message asking about PCP. I think she is now seeing a physician at her assisted living facility. Images from the original note were not included. DENIED. Isabela Petit LPN Prior Authorization has been completed online at [employer] for Cycanocobalamin, will await response. WILLIS- [id number] Please keep encounter open until final decision has been received and documented from insurance company. Isabela Petit LPN documented in this encounter [facility] 03-12-2022 Note Hospitalist Discharg e Summary [...] results reviewed, no signs of osteomyelitis. Appreciate transport engineer recommendations On the day of discharge patient's [...] (36.3 ?C) (Temporal) Resp 18 Ht 5' 5 (1.651 m) Wt 213 lb (96.6 kg) [...] re (more content not included)... [facility] 03-12-2022 Hospital course Narrative Images from [...] results reviewed, no signs of osteomyelitis. Appreciate transport engineer recommendations On the day of discharge patient's [...] (36.3 C) (Temporal) Resp 18 Ht 5' 5 (1.651 m) Wt 213 lb (96.6 kg) [...] Your Medications These medications were sent to [address] [phone] - [phone] [place] [phone] amoxicillin-clavulanate 875-125 MG per tablet doxycycline hyclate 100 MG capsule polyethylene glycol 17 g packet Recommended Follow-up: No follow-up provider specified. Readmission Risk Risk of Unplanned Readmission: 16 Complexity of Follow up: [] Moderate Complexity: follow up within 7-14 calendar days (46041) [x] Severe Complexity: follow up within 7 calendar days (12026) Follow up Testing, Pending results or Referrals [...] frame. Signed: Demetris Stone MD [facility] 03/12/2022, 2:01 PM Images from the [...] results reviewed, no signs of osteomyelitis. Appreciate transport engineer recommendations On the day of discharge patient's [...] (36.6 C) (Temporal) Resp 19 Ht 5' 5 (1.651 m) Wt 213 lb (96.6 kg) [...] Your Medications These medications were sent to [facility] [address] [place] [address] [place] - P [phone] - F [phone] [place] [address] amoxicillin-clavulanate 875-125 MG per tablet doxycycline hyclate 100 MG capsule polyethylene glycol 17 g packet Recommended Follow-up: No follow-up provider specified. Readmission Risk Risk of Unplanned Readmission: 15 Complexity of Follow up: [] Moderate Complexity: follow up within 7-14 calendar days (11621) [x] Severe Complexity: follow up within 7 calendar days (68331) Follow up Testing, Pending results or Referrals [...] MD Division of Hospitalist Medicine Inpatient Medical Services/[facility] 03/11/2022, 1:36 PM documented in this encounter [facility] Phone: 03-11-2022 History of Present illness Narrative [facility] called this nurse to change time of cigar packer and picker. Pt agreed to stay till morning. This nurse called [place] [phone] to inform about new cigar packer and picker time of 9:30 am. Report called to Nurse Copeland at [facility]. Occupational Therapy Facility/Department: [facility] Occupational Therapy Daily Treatment Note Name: Randolph Hunter : 1950 Date of Service: 03/11/2022 Pt's chart reviewed. Holding therapy today due to >5 INR. Will continue to follow and re-attempt once within therapeutic range. Dianne Schuster, OT Physical Therapy Facility/Department: [facility] Daily Treatment Note Name: Randolph Hunter : 1950 Date of Service: 03/11/2022 Pt's chart reviewed. Holding therapy today due to >5 INR. Will continue to follow and re-attempt once within therapeutic range. Jaida Matamoros FIELD ENUMERATOR Occupational Therapy Facility/Department: [facility] Occupational Therapy Initial [...] erythematosus (HCC), and Type 2 diabetes mellitus ([facility]). Past Surgical History: has no past surgical [...] Social/Functional History Social/Functional History Lives With: Spouse ([place] Type of Home: Assisted living Home Layout: [...] Assistance: Non-ambulatory Transfer Assistance: Needs assistance Active Clutch Rebuilder: No Patient's Clutch Rebuilder Info: daughter Mode of Transportation: Car Education: na Occupation: Retired Type of Occupation: worked at [employer] Objective Heart Rate: 68 Heart Rate Source: [...] AROM: ~100 degrees shoulder flexion grossly observed [facility] Score AM-[facility] Inpatient Daily Activity Raw Score: 16 (03/10/22 1444) [facility] Inpatient ADL T-Scale Score : 35.96 [...] note were not included. Hospitalist Progress Note 03/10/20226991694-2972: Please page me ([phone]) for patient care issues. [phone]: Please page IMS night Hospitalist for any [...] (35.8 C) (Temporal) Resp 18 Ht 5' 5 (1.651 m) Wt 213 lb (96.6 kg) [...] results reviewed, no signs of osteomyelitis. Appreciate transport engineer recommendations Pharmacy is managing Coumadin dosing. -am labs, replace lytes prn -increase activity -DVT prophylaxis: [] Lovenox [] Heparin [] SCDs [x] Encourage ambulation [x] Already on Anticoagulation Advance Directive: Limited Discharge planning: TBD Demetris Stone MD Division of Hospitalist Medicine Inpatient Medical Services/[facility] PAGER: [phone] Occupational Therapy Facility/Department: [facility] Occupational Therapy Initial [...] (36.3 C) (Temporal) Resp 19 Ht 5' 5 (1.651 m) Wt 213 lb (96.6 kg) [...] Will follow. Thank you. Physical Therapy Facility/Department: [facility] Physical Therapy Initial [...] Social/Functional History Social/Functional History Lives With: Spouse ([place].) Type of Home: Assisted living Home Layout: [...] Assistance: Non-ambulatory Transfer Assistance: Needs assistance Active Clutch Rebuilder: No Patient's Clutch Rebuilder Info: daughter Mode of Transportation: Car Education: na Occupation: Retired Type of Occupation: worked at [employer]: Within Functional Limits [employer] [...] to side-step toward the HOB. 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 Hospitalist Progress Note 03/09/[phone]: Please page me ([phone]) for patient care issues. [phone]: Please page IMS night Hospitalist for any [...] (36.3 C) (Temporal) Resp 19 Ht 5' 5 (1.651 m) Wt 213 lb (96.6 kg) [...] MD Division of Hospitalist Medicine Inpatient Medical Services/[facility] PAGER: [phone] Pharmacy Vancomycin Consult Follow-Up Note Current Dosin q 24 Recent Labs 03/08/22 1304 03/09/22 0114 BUN 16 14 Recent Labs 03/08/22 1304 03/09/22 0114 CREATININE 0.95 0.85 Recent Labs 03/08/22 1304 03/09/22 0114 WBC 8.7 5.5 Ht Readings from Last 1 Encounters: 03/08/22 5' 5 (1.651 m) Wt Readings from Last 1 Encounters: 03/08/22 213 lb (96.6 kg) Body mass index is 35.45 kg/m . Estimated Creatinine Clearance: 71 mL/min (based on SCr of 0.85 mg/dL). Calculated AUC: 494 mg/L.hr Assessment/Plan: Will continue dose for 1500 q 24 Pharmacy Note Vancomycin Consult Non-KIDS CLUB ATTENDANT patients Randolph Hunter is a 71 y.o. [...] Readings from Last 1 Encounters: 03/08/22 5' 5 (1.651 m) Wt Readings from Last 1 [...] results reviewed, no signs of osteomyelitis. Appreciate transport engineer recommendations On the day of discharge patient's [...] (36.6 ?C) (Temporal) Resp 19 Ht 5' 5 (1.651 m) Wt 213 lb (96.6 kg) [...] Your Medications These medications were sent to [address] - P [phone] - F [phone] [place] [address] (more content not included)... [facility] 03-11-2022 Hospital Discharge instructions Cleo Graff LPN - 03/11/2022 11:55 AM EDT Your physician has ordered skilled home care services for you. Your home care will be provided by: [facility] [phone] Viktoriya Danielson RN - 03/11/2022 5:43 PM [...] Relation: Child Secondary Emergency Contact: Adam Hunter ([facility]) Mobile Relation: Spouse Past Surgical History: History [...] (36.6 C) (Temporal) Resp 19 Ht 5' 5 (1.651 m) Wt 213 lb (96.6 kg) [...] Dependent Dressing Dependent Toileting Dependent Feeding Independent Landscape Account Manager Assisted Med Delivery whole Wound Care Documentation [...] 800 [Urine:800] Safety Concerns: { FARHAN Safety Concerns:518885612} Impairments/Disabilities: {[facility] Impairments/Disabilities:064559863 } Nutrition Therapy: Current Nutrition Therapy: - [...] select all that are sent with patient): Jones, Luis Felipe RN SIGNATURE: CASE MANAGEMENT/SOCIAL WORK SECTION Inpatient Status Date: Readmission Risk Assessment Score: Readmission Risk Risk of Unplanned Readmission: 15 Discharging to Facility/ Agency Name: Address: Phone: Fax: Dialysis Facility (if applicable) Name: Address: Dialysis Schedule: Phone: Fax: Schedule Planning Manager/Technical Coordinator signature: {Esignature:651243274} PHYSICIAN SECTION Prognosis: {Prognosis:1315005404} Condition at Discharge: { Patient Condition:621449790} Rehab Potential (if transferring to Rehab): {Prognosis:3078688948} Recommended Labs or Other Treatments After Discharge: Physician Certification: I certify the above information and transfer of Randolph Hunter is necessary for the continuing treatment of the diagnosis listed and that she requires {Admit to Appropriate Level of Care:20337} for {GREATER/LESS:133709845} 30 days. Update Admission H&P: {CHP DME Changes in HandP:756979631} PHYSICIAN SIGNATURE: {Esignature:601231096} documented in this encounter [employer] Phone: 03-06-2022 Instructions Steven Pelaez - 03/06/2022 9:21 AM EDT Would recommend natalia to left foot daily Continue with padding on dressing to eliminate pressure Would highly recommend use of heel boots while sleeping to prevent pressure sores from developing. documented in this encounter [facility] 03-06-2022 History of Present illness Narrative [...] (H) 4.3 - 5.6 % Final Comment: [place] Diabetes [employer] guidelines indicate that patients with [...] SAFETY SYRINGE) 1 mL 25 gauge x 5/8 Use as directed once a month. blood sugar diagnostic ([employer] VERIO TEST STRIPS) test strip Test blood sugar(s) 3 times daily. Dx: Other DM Code E11.42 Insulin: Yes ketoconazole (NIZORAL) 2 % cream Apply 1 application to affected area once daily. Syringe with Needle, Safety 3 mL 23 gauge x 1 1 Each as directed. Use one each [...] H* Mental Status Change Penicillins Hives Dioxicillin Glmjdrs-Ljx-Lrq Red* Myalgia PAST SURGICAL HISTORY Procedure Laterality [...] wrapping with gauze documented in this encounter [facility] 02-28-2022 Miscellaneous Notes Patient called in requesting order for wound care. Patient stated that she is at a assisted living facility and they stated by law they most have and order from physician to preform wound care. Please place order. Erlinda Ramsey LPN documented in this encounter [facility] 02-27-2022 History of Present illness Narrative Patient daughter picked up natalia. Erlinda Ramsey LPN documented in this encounter [facility] 02-27-2022 Miscellaneous Notes Returned patients call. Informed patient that her daughter can come cigar packer and picker natalia we will just have to [...] instructions. Patient can come to office to cigar packer and picker natalia. We will schedule a nurse visit. Erlinda Ramsey LPN Images from the original note were not included. Steven Matamoros RN; [facility] Podiatry Pool 52 minutes ago (3:52 PM) I have not yet ordered the natalia to pharmacy. If she wishes to cigar packer and picker at office, that may be the easiset option Steven Pelaez DPM Patient called in asking if Natalia has been sent to pharmacy? Patient asking if she can come by and cigar packer and picker Natalia from the office? Patient states she had to cancel this morning's appointment because her transportation never showed. Patient asking for order for Natalia to be sent to [facility] [place]. Rescheduled follow up appointment for 03/06. documented in this encounter [facility] 02-12-2022 Miscellaneous Notes Patient called in looking for results. Message from Dr. Pelaez given to patient. She verbalized understanding. documented in this encounter [facility] 02-10-2022 History of Present illness Narrative [...] 2022 9:22 AM documented in this encounter [facility] 02-10-2022 Instructions Steven Pelaez - 02/10/2022 8:37 AM EDT Recommend natalia to left foot ulceration daily Would recommend placing a donut hole pad on insert to offload ulceration when wearing shoes. Color ulceration with magic marker Step on insert Place pad around marking at site of ulceration Follow-up in 2 weeks Use loyda wraps for swelling reduction. documented in this encounter [facility] 02-10-2022 History of Present illness Narrative Chief Complaint: This 71 year old female who presents with chief complaint:ulceration of left 1st metatarsal HPI Patient presents to clinic for evaluation of left foot. Patient has ulceration to the plantar aspect of left 1st metatarsa. It apparently has been present for 1.5 months. She has been seeing a transport engineer in [place] who has been debriding and applying topical antibiotic cream. Patient is not currently wearing surgical shoe. She had similar ulceraiton last year and was treated with natalia. When she mentioned this to her transport engineer, she was referred here. She was advised [...] SAFETY SYRINGE) 1 mL 25 gauge x 5/8 Use as directed once a month. blood sugar diagnostic ([employer] VERIO TEST STRIPS) test strip Test blood sugar(s) 3 times daily. Dx: Other DM Code E11.42 Insulin: Yes ketoconazole (NIZORAL) 2 % cream Apply 1 application to affected area once daily. Syringe with Needle, Safety 3 mL 23 gauge x 1 1 Each as directed. Use one each [...] H* Mental Status Change Penicillins Hives Dioxicillin Vacwqsg-Lpm-Bio Red* Myalgia PAST SURGICAL HISTORY Procedure Laterality [...] weeks Steven Pelaez DPM Podiatry [address] [facility] [address] Dept: [phone] Dept AMB ROOMING INTAKE FLOWSHEET DATA Risk [...] Erlinda Ramsey LPN documented in this encounter [facility] 11-30-2021 Miscellaneous Notes Left a detailed message for pt with information listed below. Ava Rdz LPN TC to pt, no answer, unable to leave message d/t voicemail box is full and can not accept new messages. Alberto Carpio LPN Same dose, recheck 2 weewks Edwin Terrell PA-C Recently in assisted living, Nurse was in today gave her dosage instructions. They company that [employer] is dealing with will send the INR report in a couple days. INR is 2.4, Taking 7.5mg Mon, Wed, 5.0mg all other days, no change in diet, no missed doses, no change in medication, no unusual bruising/bleeding. Bonnie Allen LPN documented in this encounter [facility] 11-19-2021 Miscellaneous Notes Detailed message left [...] or narrative: no documented in this encounter [facility] 11-11-2021 Miscellaneous Notes Patient calling to [...] no diet changes. documented in this encounter [facility] 10-30-2021 Miscellaneous Notes Patient notified of [...] or narrative: no documented in this encounter [facility] 10-15-2021 Miscellaneous Notes Left a detailed [...] Ava Rdz LPN documented in this encounter [facility] 10-15-2021 Miscellaneous Notes Spoke with pt and went over the results. Pt verbalizes understanding. Ava Rdz LPN documented in this encounter [facility] 10-14-2021 History of Present illness Narrative [...] 2021 3:03 PM documented in this encounter [facility] 10-09-2021 Miscellaneous Notes Pt called and is notified of providers message. Pt voices understanding, and is going to call [employer]. Del Decker RN TC to pt, left message to return call to office. Alberto Carpio LPN It looks like there is a valid prescription sent 10/03/2021 for HCQ 200mg daily #28 to [facility] authorized by Kuldeep Albert Usually we don't prescribe and the new accepting provider should be able to fill crossover prescriptions. Thanks, Edwin Cobian PA-C Patient calls and states that her previous diesel mechanic had moved out of country. Patient states that she is in process of moving into assisted living and the [facility] will see her in regards to this. Patient asking if this can be filled for a 30 day supply? Please review and advise, Lexi Arce RN TC to pt. LM to call office, ask for triage nurse to get updates. Travis Chambers LPN Credit Support Specialist accepting patient transfer should refill medication. Who are the current and future providers? We generally don't prescribe this medication. Thanks, Edwin Cobian PA-C Pt is asking if provider will order this medication for her for 1 month. She states her diesel mechanic will not refill it for her because [...] Del Decker RN documented in this encounter [facility] 10-08-2021 Miscellaneous Notes Patient instructed of [...] or bleeding issues. documented in this encounter [facility] 10-01-2021 Miscellaneous Notes Patient instructed of [...] or bleeding issues. documented in this encounter [facility] 10-01-2021 Miscellaneous Notes Refaxed form with [...] call and advise. documented in this encounter [facility] 09-27-2021 Miscellaneous Notes Patient notified of results, verbalizes understanding of instructions. Travis Chambers LPN Thyroid is improving but still slightly low. Can we change synthroid to 150 mcg and recheck tsh in six weeks documented in this encounter [facility] 09-26-2021 Instructions Baudilio Sultana MD - [...] usual activities immediately. documented in this encounter [facility] 09-26-2021 History of Present illness Narrative Patient presents with: Physical: moving into assisted living HPI: Patient presents today for office visit for follow up. Needs forms completed for assisted living facility[facility] in [place]. She is both excited and nervous about the move. Will be transitioning to [facility]. She asked us to do the [place] through October until the new physician has [...] SAFETY SYRINGE) 1 mL 25 gauge x 5/8 Use as directed once a month. blood sugar diagnostic ([employer] VERIO TEST STRIPS) test strip Test blood sugar(s) 3 times daily. Dx: Other DM Code E11.42 Insulin: Yes ketoconazole (NIZORAL) 2 % cream Apply 1 application to affected area once daily. Syringe with Needle, Safety 3 mL 23 gauge x 1 1 Each as directed. Use one each [...] H* Mental Status Change Penicillins Hives Dioxicillin Wqlokyj-Iiy-Fen Red* Myalgia PAST MEDICAL HISTORY Diagnosis Date [...] CONSULT TO PHYSICAL THERAPY - CONSULT TO RITUAL CIRCUMCISER 2. Carotid artery disease, unspecified laterality, unspecified [...] physician and prn. documented in this encounter [facility] 09-25-2021 Miscellaneous Notes Patient notified and voiced understanding. Roxann Gomez MA Same recheck one week Patient called in with home INR. Last INR: INR (POCT) 2.2 (ext) 09/25/2021 Current dose of coumadin is: 7.5 mg on and Thu, 5 mg all other days. Previous INR (date and result): 1.9 on 09/11/21 Additional Clinical Information or narrative: no documented in this encounter [facility] 09-18-2021 Miscellaneous Notes Patient notified and [...] or bleeding issues. documented in this encounter [facility] 2021 Miscellaneous Notes TC to pt, [...] or missed doses. documented in this encounter [facility] 01-29-2021 History of Present illness Narrative [...] 2021 1:01 PM documented in this encounter [facility] 01-04-2018 History of Past i llness [...] of this encounter (statuses as of 09/16/2021) [facility] History of Past illness Narrative* Problem [...] of this encounter (statuses as of 09/18/2021) [facility] History of Past illness Narrative* Problem [...] of this encounter (statuses as of 2021) [facility] History of Past illness Narrative* Problem [...] of this encounter (statuses as of 09/25/2021) [facility] History of Past illness Narrative* Problem [...] of this encounter (statuses as of 09/26/2021) [facility] History of Past illness Narrative* Problem [...] of this encounter (statuses as of 09/27/2021) [facility] History of Past illness Narrative* Problem [...] of this encounter (statuses as of 10/01/2021) [facility] History of Past [facility] Narrative* Problem [...] of this encounter (statuses as of 10/01/2021) [facility] of Past [facility] Narrative* Problem [...] of this encounter (statuses as of 10/09/2021) [facility] of Past [facility] Narrative* Problem [...] of this encounter (statuses as of 10/15/2021) [facility] History of Past illness Narrative* Problem [...] of this encounter (statuses as of 10/15/2021) [facility] History of Past illness Narrative* Problem [...] of this encounter (statuses as of 10/15/2021) [facility] History of Past illness Narrative* Problem [...] of this encounter (statuses as of 10/30/2021) [facility] History of Past illness Narrative* Problem [...] of this encounter (statuses as of 11/11/2021) [facility] of Past illness Narrative* Problem [...] of this encounter (statuses as of 11/19/2021) [facility] of Past [facility] Narrative* Problem [...] of this encounter (statuses as of 11/30/2021) [facility] of Past illness Narrative* Problem [...] of this encounter (statuses as of 12/23/2021) [facility] History of Past illness Narrative* Problem [...] of this encounter (statuses as of 02/10/2022) [facility] of Past illness Narrative* Problem [...] of this encounter (statuses as of 02/11/2022) [facility] History of Past illness Narrative* Problem [...] of this encounter (statuses as of 02/12/2022) [facility] History of Past illness Narrative* Problem [...] of this encounter (statuses as of 02/27/2022) [facility] History of Past illness Narrative* Problem [...] of this encounter (statuses as of 03/03/2022) [facility] of Past [facility] Narrative* Problem [...] of this encounter (statuses as of 03/06/2022) [facility] of Past [facility] Narrative* Problem [...] of this encounter (statuses as of 04/25/2022) [facility] of Past [facility] Narrative* Problem [...] of this encounter (statuses as of 06/25/2022) [facility] of Past [facility] Narrative* Problem [...] of this encounter (statuses as of 05/04/2023) [facility] of Past [facility] Narrative* Problem [...] of this encounter (statuses as of 05/04/2023) [facility] note* Diagnosis History of pulmonary embolism Personal history of pulmonary embolism documented in this encounter [facility] note* Diagnosis History of pulmonary embolism Personal history of pulmonary embolism documented in this encounter [facility] note* Diagnosis Cerebral palsy, unspecified [...] or radiculitis nos documented in this encounter [facility] noteNo assessment information availableWMercy [facility] Work Phone: Evaluation note* Diagnosis Acquired hypothyroidism Unspecified hypothyroidism documented in this encounter [facility] note* Diagnosis Disorder of bone and cartilage Disorder of bone and cartilage, unspecified documented in this encounter [facility] note* Diagnosis Encounter for screening mammogram for breast cancer documented in this encounter [facility] note* Diagnosis Type 2 diabetes, controlled, with neuropathy (HCC)- Primary Type II or unspecified type diabetes mellitus with neurological manifestations, not stated as uncontrolled Diabetic ulcer of toe 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, with fat layer exposed (HCC) documented in this encounter [facility] note* Diagnosis Diabetic ulcer of toe 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, with fat layer exposed (HCC) documented in this encounter [facility] note* Diagnosis Diabetic ulcer of toe 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, with fat layer exposed (HCC)- Primary documented in this encounter [facility] note* Diagnosis Diabetic ulcer of toe 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, with fat layer exposed (HCC)- Primary Type 2 diabetes, controlled, with neuropathy (HCC) Type II or unspecified type diabetes mellitus with neurological manifestations, not stated as uncontrolled documented in this encounter [facility] note* Diagnosis Diabetic ulcer of other part 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, with fat layer exposed (HCC)- Primary Cellulitis of left lower extremity Cellulitis and abscess of leg, except foot PE (pulmonary thromboembolism) (HCC) Chronic pulmonary embolism Cellulitis Cellulitis and abscess of unspecified site documented in this encounter [facility] Work Phone: Evaluation note* Diagnosis Diabetic ulcer of toe 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, with fat layer exposed (HCC)- Primary documented in this encounter [facility] note* Diagnosis Fall, initial encounter- Primary Skin tear of hand without complication Cephalohematoma Other injuries to scalp Acute pain of right shoulder [facility] Diagnosis Exacerbation of asthma, unspecified asthma severity, unspecified whether persistent Hyperparathyroidism, primary ([facility]) Primary hyperparathyroidism Neuropathy Mononeuritis of unspecified site Osteoarthritis of AC (acromioclavicular) joints, bilateral Vitamin D deficiency Unspecified vitamin D deficiency Blister Other, multiple, and unspecified sites, blister, without mention of infection Candidiasis of breast Other candidiasis of other specified sites Lupus anticoagulant disorder ([facility]) Primary hypercoagulable state Cerumen in auditory canal on examination Chronic kidney disease, unspecified CKD stage Fall, sequela Knee pain, unspecified chronicity, unspecified laterality Chronic thromboembolic pulmonary hypertension (HCC) Other chronic pulmonary heart diseases Strain of calf muscle, unspecified laterality, subsequent encounter Traumatic ecchymosis of lower back, sequela Yeast infection of the skin Candidiasis of skin and nails documented in this encounter [facility] note* Diagnosis Frequent falls- Primary Right hip pain Pain in joint, pelvic region and thigh Contusion of right knee, initial encounter Osteoarthritis, unspecified osteoarthritis type, unspecified site [facility]* Diagnosis Diabetic ulcer of left foot associated with diabetes mellitus due to underlying condition, unspecified part of foot, unspecified ulcer stage ([facility])- Primary Left leg cellulitis [facility]* Diagnosis Pressure ulcer of right foot, stage 3 ([facility])- Primary documented in this encounter [facility] note* Diagnosis Chronic right shoulder pain Pain in joint, shoulder region documented in this encounter [facility] note* Diagnosis Acute cough- Primary documented in this encounter [facility] note* Diagnosis Fall at home, initial encounter- [...] manifestations, not stated as uncontrolled Atherosclerosis of gamb[place] coronary artery of gambell heart without angina pectoris Other pulmonary embolism without acute cor pulmonale, unspecified chronicity (HCC) Debility Debility, unspecified [facility] Diagnosis Fall at home, [...] Neuropathy Mononeuritis of unspecified site Atherosclerosis of [place] coronary artery of [place] heart without angina pectoris Other pulmonary embolism without acute cor pulmonale, unspecified chronicity (HCC) Debility Debility, unspecified [facility] Diagnosis Fall at home, [...] manifestations, not stated as uncontrolled Atherosclerosis of gamb[place] coronary artery of gamb[place] heart without angina pectoris Other pulmonary embolism without acute cor pulmonale, unspecified chronicity (HCC) Debility Debility, unspecified [facility] Diagnosis Primary osteoarthritis of left knee- Primary Primary localized osteoarthrosis, lower leg [facility] Sprain of left ankle, unspecified ligament, initial encounter- Primary Ankle instability, left Chronic pain of left ankle [facility] Diagnosis Sprain of left ankle, unspecified ligament, initial encounter Ankle instability, left documented in this encounter [facility] for referral (narrative)* Diagnostic Procedure Only (Routine) - Pending Review Specialty Diagnoses / Procedures Referred By Enrique t Referred To Contact [facility] Diagnoses Encounter for screening mammogram for breast cancer Procedures FUAD SCREENING SCREENING MAMMOGRAPHY BI 2-VIEW BREAST INC Baudilio Condon MD [address] [place] [address] [facility] [address] [place] [address] Referral ID Status Reason Start Date Expiration Date Visits Requested Visits Authorized [id number] Pending Review Auto-Generat ed Referral 12/18/2021 01/17/2023 1 1 T [facility] for referral (narrative)* Diagnostic Procedure Only (Routine) - Closed Specialty Diagnoses / Procedures [facility] To Contact XR IMAGING Diagnoses Diabetic ulcer of toe 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, with fat layer exposed (HCC) Procedures XR FOOT GENERAL 3V AP/LAT/OBL LEFT RADEX FOOT COMPLETE MINIMUM 3 VIEWS Steven Pelaez [address] [place] [address] Xr Imaging Referral ID Status Reason Start Date Expiration Date V isits Requested Visits Authorized [id number] Closed Auto-Generate d Referral 02/10/2022 03/12/2023 1 1 T [facility] for referral (narrative)* Diagnostic Procedure Only (Routine) - Closed Specialty Diagnoses / Procedures [facility] Referred To Contact XR IMAGING Diagnoses Diabetic ulcer of toe 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, with fat layer exposed (HCC) Procedures XR FOOT GENERAL 3V AP/LAT/OBL LEFT RADEX FOOT COMPLETE MINIMUM 3 VIEWS Steven Pelaez [address] [place] [address] Xr Imaging Referral ID Status Reason Start Date Expiration Date V isits Requested Visits Authorized [id number] Closed Auto-Generate d Referral 02/10/2022 03/12/2023 1 1 [facility] for referral (narrative)No reason for referral information availableWMercy Health St[facility] Work Phone: [facility] Narr[facility]* Diagnostic Procedure Only (Routine) - Closed Specialty Diagnoses / Procedures Referred By Contac t Referred To Contact Radiology / RADIO BONE DENSITY [facility] Diagnoses Disorder of bone and cartilage [M89.9, M94.9] Procedures BONE DENSITY ADULT 225 Baudilio Sultana MD [address] [place] [address] Radio Bone Density [facility] [address] [place] [address] Referral ID Status Reason Start Date Expiration Date Visits Re quested Visits Authorized [id number] Closed 10/14/2021 06/21/2022 1 1 [facility] for visit Narrative* Diagnostic Procedure Only (Routine) - Closed Specialty Diagnoses / Procedures Referred By Contac t Referred To Contact XR IMAGING Diagnoses Diabetic ulcer of toe 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, with fat layer exposed (HCC) Procedures XR FOOT GENERAL 3V AP/LAT/OBL LEFT RADEX FOOT COMPLETE MINIMUM 3 VIEWS Steven [address] [place] [address] Xr Imaging Referral ID Status Reason Start Date Expiration Date V isits Requested Visits Authorized [id number] Closed Auto-Generate d Referral 02/10/2022 03/12/2023 1 1 [facility] for visit Narrative* Diagnostic Procedure Only (Routine) - Closed Specialty Diagnoses / Procedures Referred By Contac t Referred To Contact XR IMAGING Diagnoses Sprain of left ankle, unspecified ligament, initial encounter Ankle instability, left Procedures XR TIBIA FIBULA 2V AP/LAT LEFT RADIOLOGIC EXAMINATION TIBIA & FIBULA 2 VIEWS Steven [address] [place] [address] Phone: tel: fax: [place] [address] Referral ID Status Reason Start Date Expiration Date V isits Requested Visits Authorized [id number] Closed Auto-Generate d Referral 10/27/2024 11/26/2025 1 1 [facility] Summary Purpose Family History No Family [...] FoundDocuments on File Type Date Recorded 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 [employer]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 Expl anation Advance Directive(s) 11/24/2016 2:36 PM Advance Directive(s) 10/24/2016 10:01 AM Advance Directive(s) 12/26/2013 2:29 PM Documents on File Type Date Recorded 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 [employer]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 Expl anation Advance Directive(s) 11/24/2016 2:36 PM Advance Directive(s) 10/24/2016 10:01 AM Advance Directive(s) 12/26/2013 2:29 PM Advance Directive Response Recorded Date/ Time Advance Directives Yes January 04 7:42pm Living Will Yes April 22 10:07pm Power of Editor Managing [employer] Yes April 22, 2021 10:07pm Documents on File Type Date Recorded 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 [employer]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 Advance Directive(s) 12/26/2013 2:29 PM Documents on File Type Date Recorded Patient [employer] Expl anation Advance Directive(s) 12/26/2013 2:29 PM Latest Code Status on File Code Status Date Activated Date Inactivated Comments Limited 03/08/2022 4:21 PM Intubation/Re-intubation at the time of arrest: No Defibrillation/Cardioversion: No Chest Compressions: No Resuscitative Medications: Yes Healthcare Agents on File Name Relationship Healthcare Agent Relationshi p Communication Lisha Elayne Child Primary Decision Maker Documents on File Type Date Recorded Patient [employer] Expl anation DNR (Do Not Resuscitate) 12/18/2023 10:52 AM Advance Directive Response Recorded Date/ Time Advance Directives Yes January 04 7:42pm Reason for Referral Specialty Diagnoses / Procedures Referred By Contac t Referred To Contact [facility] Diagnoses Cerebral palsy, unspecified type (HCC) Procedures CONSULT TO RITUAL CIRCUMCISER OCCUPATIONAL THERAPY EVAL HIGH COMPLEX 60 MINS Baudilio Sultana MD [address] [place] [address] [facility] [address] [address] Referral ID Status Reason Start Date Expiration Date Visits Requested Visits Authorized [id number] Pending Review Auto-Generat ed Referral 09/26/2021 09/26/2022 1 1 Specialty Diagnoses / Procedures Referred By Contac t Referred To Contact [facility] Diagnoses Cerebral palsy, unspecified type (HCC) Procedures CONSULT TO PHYSICAL THERAPY PHYSICAL THERAPY EVALUATION HIGH COMPLEX 45 MINS Baudilio Sultana MD [address] [place] [address] [address] Referral ID Status Reason Start Date Expiration Date Visits Requested Visits Authorized [id number] Pending Review Auto-Generat ed Referral 09/26/2021 09/26/2022 1 1 Specialty Diagnoses / Procedures Referred By Contac t Referred To Contact [facility] Diagnoses Carotid artery disease, unspecified laterality, unspecified type (HCC) Procedures US CAROTID ARTERIES DUSTIN VAS LAB DUPLEX SCAN EXTRACRANIAL ART COMPL BI STUDY Baudilio Sultana MD [address] [place] [address] [facility] [address] [address] Referral ID Status Reason Start Date Expiration Date Visits Requested Visits Authorized [id number] Additional Clinical Info Needed Auto-Generat ed Referral 09/26/2021 09/26/2022 1 1 Specialty Diagnoses / Procedures Referred By Contac t Referred To Contact Wound Care / IP Unit Diagnoses Diabetic ulcer of other part 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, with fat layer exposed (HCC) Ritika Fonseca, JUNIOR COPYWRITER - AUDIO VISUAL DESIGN ENGINEER [address] [place] [address] [facility] [address] [place] [address] Referral ID Status Reason Start Date Expiration Date V isits Requested Visits Authorized [id number] Open Specialty Services Required 03/11/2022 03/11/2023 1 1 Scheduling Instructions [facility] Wound Care/Hyperbaric [facility] [address] [place], [place] [id number] Comments [facility] is located on the ground floor of [facility] (just behind registration). Bring photo ID [...] DRAW LAB WORK Chief Complaint Admit Date HALFWAY LAB WORK December 05, 2024 5: 00am HALFWAY LAB WORK December 19, 2024 5: 00am HALFWAY LAB WORK January 02, 2025 4: 00am HALFWAY LAB WORK January 03, 2025 4: 45am HALFWAY LAB WORK January 09, 2025 4: 00am LAB WORK January 17, 2025 4:00 am HALFWAY LAB WORK January 24, 2025 5 :00am HALFWAY LAB WORK January 31, 2025 7:25am LABWORK February 01, 2025 5: 00am HALFWAY LAB WORK February 07, 2025 5:00am HALFWAY LAB WORK February 21 4:00am HALFWAY LAB WORK March 02 5:00am LABWORK March 08, 2025 7:10am Additional Source Comments INFORMATION SOURCE (unrecogn ized section and content) DATE CREATED AUTHOR [facility]/11/2017 [facility] DATE CREATED AUTHOR AUTHOR'S ORGANIZ ATION 12/11/2017 [facility] DATE CREATED AUTHOR AUTHOR'S ORGANIZ ATION 03/31/2022 [facility] DATE CREATED AUTHOR AUTHOR'S ORGANIZ ATION 09/08/2022 [facility] DATE CREATED AUTHOR AUTHOR'S ORGANIZ ATION 07/11/2024 [facility] DATE CREATED AUTHOR AUTHOR'S ORGANIZ ATION 10/01/2024 [facility] DATE CREATED AUTHOR AUTHOR'S ORGANIZ ATION 11/09/2024 [facility] DATE CREATED AUTHOR AUTHOR'S ORGANIZ ATION 05/02/2025 [facility] DATE CREATED AUTHOR AUTHOR'S ORGANIZ ATION 05/04/2025 [facility] Source Comments (unrecognize d section and content) In the event this informatio n is protected by the Federal Confidentiality of Alcohol and Drug Abuse Patient Records regulations: The Federal rules restrict any use of the information to criminally investigate or prosecute any alcohol or drug abuse patient.[facility] the event this information is protected by the Federal Confidentiality of Alcohol and Drug Abuse Patient Records regulations: The Federal rules restrict any use of the information to criminally investigate or prosecute any alcohol or drug abuse patient.[facility] the event this information is protected by the Federal Confidentiality of Alcohol and Drug Abuse Patient Records regulations: The Federal rules restrict any use of the information to criminally investigate or prosecute any alcohol or drug abuse patient.[facility] HospitalIn the event this information is protected by the Federal Confidentiality of Alcohol and Drug Abuse Patient Records regulations: The Federal rules restrict any use of the information to criminally investigate or prosecute any alcohol or drug abuse patient.[facility] the event this information is protected by the Federal Confidentiality of Alcohol and Drug Abuse Patient Records regulations: The Federal rules restrict any use of the information to criminally investigate or prosecute any alcohol or drug abuse patient.[facility]In the event this information is protected by the Federal Confidentiality of Alcohol and Drug Abuse Patient Records regulations: The Federal rules restrict any use of the information to criminally investigate or prosecute any alcohol or drug abuse patient.[facility] Hospital[facility] the event this information is protected by the Federal Confidentiality of Alcohol and Drug Abuse Patient Records regulations: The Federal rules restrict any use of the information to criminally investigate or prosecute any alcohol or drug abuse patient.[facility] Hospital[facility] the event this information is protected by the Federal Confidentiality of Alcohol and Drug Abuse Patient Records regulations: The Federal rules restrict any use of the information to criminally investigate or prosecute any alcohol or drug abuse patient.[facility] the event this information is protected by the Federal Confidentiality of Alcohol and Drug Abuse Patient Records regulations: The Federal rules restrict any use of the information to criminally investigate or prosecute any alcohol or drug abuse patient.[facility] HospitalIn the event this information is protected by the Federal Confidentiality of Alcohol and Drug Abuse Patient Records regulations: The Federal rules restrict any use of the information to criminally investigate or prosecute any alcohol or drug abuse patient.[facility] HospitalIn the event this information is protected by the Federal Confidentiality of Alcohol and Drug Abuse Patient Records regulations: The Federal rules restrict any use of the information to criminally investigate or prosecute any alcohol or drug abuse patient.[facility] HospitalIn the event this information is protected by the Federal Confidentiality of Alcohol and Drug Abuse Patient Records regulations: The Federal rules restrict any use of the information to criminally investigate or prosecute any alcohol or drug abuse patient.[facility] HospitalIn the event this information is protected by the Federal Confidentiality of Alcohol and Drug Abuse Patient Records regulations: The Federal rules restrict any use of the information to criminally investigate or prosecute any alcohol or drug abuse patient.[facility] Hospital[facility] the event this information is protected by the Federal Confidentiality of Alcohol and Drug Abuse Patient Records regulations: The Federal rules restrict any use of the information to criminally investigate or prosecute any alcohol or drug abuse patient.[facility] HospitalIn the event this information is protected by the Federal Confidentiality of Alcohol and Drug Abuse Patient Records regulations: The Federal rules restrict any use of the information to criminally investigate or prosecute any alcohol or drug abuse patient.[facility] HospitalIn the event this information is protected by the Federal Confidentiality of Alcohol and Drug Abuse Patient Records regulations: The Federal rules restrict any use of the information to criminally investigate or prosecute any alcohol or drug abuse patient.[facility]In the event this information is protected by the Federal Confidentiality of Alcohol and Drug Abuse Patient Records regulations: The Federal rules restrict any use of the information to criminally investigate or prosecute any alcohol or drug abuse patient.[facility] HospitalIn the event this information is protected by the Federal Confidentiality of Alcohol and Drug Abuse Patient Records regulations: The Federal rules restrict any use of the information to criminally investigate or prosecute any alcohol or drug abuse patient.[facility] HospitalIn the event this information is protected by the Federal Confidentiality of Alcohol and Drug Abuse Patient Records regulations: The Federal rules restrict any use of the information to criminally investigate or prosecute any alcohol or drug abuse patient.[facility] HospitalIn the event this information is protected by the Federal Confidentiality of Alcohol and Drug Abuse Patient Records regulations: The Federal rules restrict any use of the information to criminally investigate or prosecute any alcohol or drug abuse patient.[facility] HospitalIn the event this information is protected by the Federal Confidentiality of Alcohol and Drug Abuse Patient Records regulations: The Federal rules restrict any use of the information to criminally investigate or prosecute any alcohol or drug abuse patient.[facility] HospitalIn the event this information is protected by the Federal Confidentiality of Alcohol and Drug Abuse Patient Records regulations: The Federal rules restrict any use of the information to criminally investigate or prosecute any alcohol or drug abuse patient.[facility] HospitalIn the event this information is protected by the Federal Confidentiality of Alcohol and Drug Abuse Patient Records regulations: The Federal rules restrict any use of the information to criminally investigate or prosecute any alcohol or drug abuse patient.[facility] HospitalIn the event this information is protected by the Federal Confidentiality of Alcohol and Drug Abuse Patient Records regulations: The Federal rules restrict any use of the information to criminally investigate or prosecute any alcohol or drug abuse patient.[facility] HospitalIn the event this information is protected by the Federal Confidentiality of Alcohol and Drug Abuse Patient Records regulations: The Federal rules restrict any use of the information to criminally investigate or prosecute any alcohol or drug abuse patient.[facility] HospitalIn the event this information is protected by the Federal Confidentiality of Alcohol and Drug Abuse Patient Records regulations: The Federal rules restrict any use of the information to criminally investigate or prosecute any alcohol or drug abuse patient.[facility] HospitalIn the event this information is protected by the Federal Confidentiality of Alcohol and Drug Abuse Patient Records regulations: The Federal rules restrict any use of the information to criminally investigate or prosecute any alcohol or drug abuse patient.[facility] HospitalIn the event this information is protected by the Federal Confidentiality of Alcohol and Drug Abuse Patient Records regulations: The Federal rules restrict any use of the information to criminally investigate or prosecute any alcohol or drug abuse patient.[facility] HospitalIn the event this information is protected by the Federal Confidentiality of Alcohol and Drug Abuse Patient Records regulations: The Federal rules restrict any use of the information to criminally investigate or prosecute any alcohol or drug abuse patient.[facility] HospitalIn the event this information is protected by the Federal Confidentiality of Alcohol and Drug Abuse Patient Records regulations: The Federal rules restrict any use of the information to criminally investigate or prosecute any alcohol or drug abuse patient.[facility] HospitalIn the event this information is protected by the Federal Confidentiality of Alcohol and Drug Abuse Patient Records regulations: The Federal rules restrict any use of the information to criminally investigate or prosecute any alcohol or drug abuse patient.[facility] HospitalIn the event this information is protected by the Federal Confidentiality of Alcohol and Drug Abuse Patient Records regulations: The Federal rules restrict any use of the information to criminally investigate or prosecute any alcohol or drug abuse patient.[facility] HospitalIn the event this information is protected by the Federal Confidentiality of Alcohol and Drug Abuse Patient Records regulations: The Federal rules restrict any use of the information to criminally investigate or prosecute any alcohol or drug abuse patient.[facility] HospitalIn the event this information is protected by the Federal Confidentiality of Alcohol and Drug Abuse Patient Records regulations: The Federal rules restrict any use of the information to criminally investigate or prosecute any alcohol or drug abuse patient.[facility] HospitalIn the event this information is protected by the Federal Confidentiality of Alcohol and Drug Abuse Patient Records regulations: The Federal rules restrict any use of the information to criminally investigate or prosecute any alcohol or drug abuse patient.[facility] HospitalIn the event this information is protected by the Federal Confidentiality of Alcohol and Drug Abuse Patient Records regulations: The Federal rules restrict any use of the information to criminally investigate or prosecute any alcohol or drug abuse patient.[facility] HospitalIn the event this information is protected by the Federal Confidentiality of Alcohol and Drug Abuse Patient Records regulations: The Federal rules restrict any use of the information to criminally investigate or prosecute any alcohol or drug abuse patient.[facility] Care Teams (unrecognized sec tion and content) Statistical Technician Relationship Specialty Start Date End Date Baudilio Sultana MD [address] [place] [address] PCP - General Family Practice 04/01/18 Jackson Lee Consulting Rheumatology 10/12/17 Statistical Technician Relationship Specialty Start Date End Date Baudilio Sultana MD [address] [place], [place] [id number] PCP - General Family Practice 04/01/18 Jackson Leeardo Consulting Rheumatology 10/12/17 Statistical Technician Relationship Specialty Start Date End Date Baudilio Sultana MD [address] [facility] [place] [address] PCP - General Family Practice 04/01/18 Jackson Lee Consulting Rheumatology 10/12/17 Statistical Technician Relationship Specialty Start Date End Date Baudilio Sultana MD [address] [facility] [place] [address] PCP - General Family Practice 04/01/18 Jackson Lee Consulting Rheumatology 10/12/17 Statistical Technician Relationship Specialty Start Date End Date Baudilio Sultana MD [address] [facility] [place] [address] PCP - General Family Practice 04/01/18 Jackson Leeo Consulting Rheumatology 10/12/17 Statistical Technician Relationship Specialty Start Date End Date Baudilio Sultana MD [address] [facility] [place] [address] PCP - General Family Practice 04/01/18 Jackson Leeardo Consulting Rheumatology 10/12/17 Statistical Technician Relationship Specialty Start Date End Date Baudilio Sultana MD [address] [facility] [place] [address] PCP - General Family Practice 04/01/18 Jackson Leeardo Consulting Rheumatology 10/12/17 Statistical Technician Relationship Specialty Start Date End Date Baudilio Sultana MD [address] [facility] [place] [address] PCP - General Family Practice 04/01/18 Jackson Lee Consulting Rheumatology 10/12/17 Statistical Technician Relationship Specialty Start Date End Date Baudilio Sultana MD [address] [facility] [place] [address] PCP - General Family Practice 04/01/18 Jackson Leeo Consulting Rheumatology 10/12/17 Statistical Technician Relationship Specialty Start Date End Date Baudilio Sultana MD [address] [facility] [place] [address] PCP - General Family Practice 04/01/18 Jackson Leeo Consulting Rheumatology 10/12/17 Statistical Technician Relationship Specialty Start Date End Date Baudilio Sultana MD [address] [facility] [place] [address] PCP - General Family Practice 04/01/18 Jackson Lee Consulting Rheumatology 10/12/17 Statistical Technician Relationship Specialty Start Date End Date Baudilio Sultana MD [address] [facility] [place] [address] PCP - General Family Practice 04/01/18 Jackson Leeo Consulting Rheumatology 10/12/17 Statistical Technician Relationship Specialty Start Date End Date Baudilio Sultana MD [address] [facility] [place] [address] PCP - General Family Practice 04/01/18 Jackson Leeardo Consulting Rheumatology 10/12/17 Statistical Technician Relationship Specialty Start Date End Date Baudilio Sultana MD [address] [facility] [place] [address] PCP - General Family Practice 04/01/18 Jackson Leeo Consulting Rheumatology 10/12/17 Statistical Technician Relationship Specialty Start Date End Date Baudilio Sultana MD [address] [facility] [place] [address] PCP - General Family Practice 04/01/18 Jackson Leeardo Consulting Rheumatology 10/12/17 Statistical Technician Relationship Specialty Start Date End Date Baudilio Sultana MD [address] [facility] [place] [address] PCP - General Family Practice 04/01/18 Jackson Lee Consulting Rheumatology 10/12/17 Statistical Technician Relationship Specialty Start Date End Date Baudilio Sultana MD [address] [place], [place] [address] PCP - General Family Medicine 04/01/18 04/24/22 Jackson Lee Consulting Rheumatology 10/12/17 Statistical Technician Relationship Specialty Start Date End Date Baudilio Sultana MD [address], [place] [address] PCP - General Family Medicine 04/01/18 04/24/22 Jackson Lee Consulting Rheumatology 10/12/17 Statistical Technician Relationship Specialty Start Date End Date Jackson Lee MD Consulting Rheumatology 10/12/17 Statistical Technician Relationship Specialty Start Date End Date Jackson Lee MD Consulting Rheumatology 10/12/17 Statistical Technician Relationship Specialty Start Date End Date Gio Harvey [address], [place] [address] PCP - General Certified Nurse Practitioner 01/13/24 Statistical Technician Relationship Specialty Start Date End Date Gio Harvey [address], [place] [address] PCP - General Certified Nurse Practitioner 01/13/24 Statistical Technician Relationship Specialty Start Date End Date Baudilio Sultana MD [address], [place] [phone] PCP - General Family Medicine 04/01/18 04/24/22 Jackson Lee MD Consulting Rheumatology 10/12/17 Statistical Technician Relationship Specialty Start Date End Date Gio Harvey [address], [place] [address] PCP - General Certified Nurse Practitioner 01/13/24 07/09/24 Statistical Technician Relationship Specialty Start Date End Date Gio Harvey [address], [place] [address] PCP - General Certified Nurse Practitioner 01/13/24 07/09/24 Statistical Technician Relationship Specialty Start Date End Date Raf Casey MD [address] [phone] PCP - General Internal Medicine 08/27/23 Jackson Lee MD Consulting Rheumatology 10/12/17 Statistical Technician Relationship Specialty Start Date End Date Raf Casey MD [address] [facility] [address] [place] [phone] PCP - General Internal Medicine 08/27/23 Jackson Lee MD Consulting Rheumatology 10/12/17 Statistical Technician Relationship Specialty Start Date End Date Raf Casey MD [address] [phone] PCP - General Internal Medicine 08/27/23 Jackson Lee MD Consulting Rheumatology 10/12/17 Statistical Technician Relationship Specialty Start Date End Date Raf Casey MD [address] [place] [phone] PCP - General Internal Medicine 08/27/23 Jackson Lee MD Consulting Rheumatology 10/12/17 Statistical Technician Relationship Specialty Start Date End Date Raf Casey MD [address] [place] [phone] PCP - General Internal Medicine 08/27/23 Jackson Lee MD Consulting Rheumatology 10/12/17 Statistical Technician Relationship Specialty Start Date End Date Raf Casey MD [address] [place] [phone] PCP - General Internal Medicine 08/27/23 Jackson Lee MD Consulting Rheumatology 10/12/17 Statistical Technician Relationship Specialty Start Date End Date Raf Casey MD [address] [place] [phone] PCP - General Internal Medicine 08/27/23 Jackson Lee MD Consulting Rheumatology 10/12/17 Team Status: Active Member Role/Relationship Status Dates Dr. Baudilio Sultana MD Primary care physician Active Team Status: Inactive Member Role/Relationship Status Dates Dr. Baudilio Sultana MD Primary care physician Active Start: December 05, 2024 End: December 05, 2024 Mni ALBRECHT MD Attending physician Active Start: December [...] 4C EST WELL Self Baudilio Sultana MD [address] [place] [address] Referral ID Status Reason Start Date Expiration Date V isits Requested Visits Authorized [id number] Closed Financial Clearance Required - OON Payor [...] Reason Comments Fall Patient lies in assi vand living and fell, +thinners, A&Ox4 Reason Comments [...] Comment: as ordered)2107 (Given - Provider: Lucy iNcholas LPN) 749 (Given - Provider: Viktoriya Danielson [...] 2100, Until Discontinued 2103 (Given - Provider: Luyc Nicholas LPN) 2039 (Not Given - Provider: Lucy Nicholas LPN - Reason: Patient/family refused)2326 (Given - Provider: Lucy Nicholas LPN - Comment: Pt was supposed to be d/c and wanted to take at home. D/c got changed due to transportation) 3932 (Given - Provider: Alexandra Yao, RN) warfarin [...] Scheduled Medication Order 07/18/2023 07/19/2023 07/20/2023 HYDROcodone-acetaminophen ([place]) 5-325 MG per tablet 1 tablet (COMPLETED) 1 tablet, Oral, Once, On Thu07/19/23 at 2030, For 1 dose, Maximum dose of acetaminophen is 4000 mg from all sources in 24 hours. 2030 (Given - Provider: Pia Caraballo RN) HYDROcodone-acetaminophen ([place]) 5-325 MG per tablet 1 tablet (COMPLETED) 1 tablet, Oral, Once, On Thu07/20/23 at 0105, For 1 dose, Maximum dose of acetaminophen is 4000 mg from all sources in 24 hours. 0154 (Given - Provid er: Gifty Cornell RN) HYDROcodone-acetaminophen ([place]) 5-325 MG per tablet 1 tablet (COMPLETED) [...] BE BASED ON THE PRIMARY CLINICAL RECORDS. [facility]. provides no warranty or guarantee of the accuracy or completeness of information in this document.
[2025-06-02 08:00] LABS: Hematocrit 28.8 % (37-47); Hemoglobin 9.9 g/dL (12.0-15.0); Mean Corp Hgb Conc 34.4 g/dL (32-36); Mean Corpuscular Volume 87.5 fL (81-99); Mean Platelet Vol. 10.0 fl (6.2-12.0); Platelet Count 136 K/mm3 (150-450); RBC Distribution Width CV 13.3 % (11.6-14.6); RBC Distribution Width SD 42.5 fl (35.1-43.9); Red Blood Count 3.29 M/mm3 (4.2-5.4); White Blood Count 3.5 K/mm3 (4.4-11.0)
[2025-06-02 08:13] LABS: Anion Gap 8 (5-15); BUN 13 mg/dL (4-19); BUN/Creat Ratio 14.4 RATIO (10-20); Calcium,Total 8.2 mg/dL (7.6-11.0); Carbon Dioxide 27.7 mmol/L (21.0-32.0); Chloride 105 mmol/L (98-108); Glucose 89 mg/dL (70-99); Potassium 4.3 mmol/L (3.3-5.1)
== END ==
LOC: OLS.WCC 05:00
PROVIDERS: PCP Family Medicine; Visit Provider Family Medicine
DX: Z00.00 Encounter for general adult medical examination without abnormal findings (principal)
CPT/HCPCS: 36415; 80048; 85027

== ENCOUNTER → 2025-06-14 05:00 | Outpatient (REF) | payer MEDICARE, MEDICAID, SELFPAY ==
--- OUTSIDE RECORDS SUMMARY | 2025-06-14 04:19 | XMS RPT_ITS | CCD ---
Author Organization [facility] ion [facility] Care Team Providers Care Qa Reviewer Name Role Phone DAVID ERWIN E Unavailable [...] Care Unavailable ISAAC CHICAS Attending Unavailable GLORIA BAGNURA Referring Unavailable ANNA, CUBA R Referring Unavailable [...] Unavailable LI, RAF L Primary Care Unavailable [place], [facility] Primary Care Unavailable Marroquin TRENA Min K Attending Unavailable Marroquin TRENA, Min K Attending Unavailable [facility] Primary Care Unavailable Marroquin TRENA, Min K Referring Unavailable [place], [facility] Primary Care Unavailable Marroquin TRENA, Min K Referring Unavailable Marroquin TRENA, Min K Attending Unavailable Rd, [facility] Primary Care Unavailable Marroquin TRENA, Min K Attending Unavailable [place], [facility] Primary Care Unavailable Marroquin TRENA, Min K Attending Unavailable [place], [facility] Primary Care Unavailable Marroquin OLS, Min K Attending Unavailable Rd, [facility] Primary Care Unavailable Marroquin OLS, Min K Attending Unavailable Rd, [facility] Primary Care Unavailable Marroquin OLS, Min K Attending Unavailable Rd, [facility] Primary Care Unavailable Marroquin OLS, Min K Attending Unavailable Rd, [facility] Primary Care Unavailable Marroquin OLS, Min K Attending Unavailable Rd, [facility] Primary Care Unavailable Marroquin OLS, Min K Attending Unavailable Marroquin OLS, Min K Attending Unavailable [place], [facility] Primary Care Unavailable Marroquin OLS, Min K Referring Unavailable [place], [facility] Primary Care Unavailable Marroquin OLS, Min K Attending Unavailable Marroquin OLS, Min K Attending Unavailable [place], [facility] Primary Care Unavailable Marroquin OLS, Min [...] cephalexin; Translations: [CEPHALEXIN] Drug Allergy 5 Itching [facility] Repository (20 sources) ciprofloxacin; Translations: [CIPROFLOXACIN] Drug Allergy 1 Rash [facility] Repository (20 sources) erythromycin; Translations: [ERYTHROMYCIN] Drug Allergy 5 Itching [facility] Repository (20 sources) naproxen; Translations: [NAPROXEN] Drug Allergy 5 Intolerance [facility] Repository (20 sources) PARoxetine; Translations: [PAROXETINE HCL] Drug Allergy 5 Mental Status Change [facility] Repository (20 sources) Penicillins; Translations: [PENICILLINS] Propensity to adverse reactions to drug (disorder) 1 Hives, Unknown, Other [facility] Repository (20 sources) PROMETHAZINE-PHE NYLEPHRINE; Translations: [PROMETHAZINE-PH ENYLEPHRINE] Propensity to adverse reactions to drug (disorder) 5 Mental Status Change, Other [facility] Repository (4 sources) OTHER; Translations: [OTHER] Propensity to adverse reactions (disorder) 2 AOF [facility] Repository (20 sources) HMG-CoA reductase inhibitor; Translations: [LLDKZRL-CWS-UPK REDUCTASE INHIBITORS] Drug Intolerance 9 Myalgia [facility] Work Phone: (20 sources) paper tape [Other] Propensity to adverse reactions 2 Intolerance [facility] Work Phone: (5 sources) Cephalexin; Translations: [cephalexin monohydrate] Drug Allergy 1 Unknown [facility] (4 sources) Erythromycin Drug Allergy 1 Unknown [facility] (5 sources) Promethazine; Translations: [promethazine HCl] Drug Allergy 1 Unknown [facility] (5 sources) Antayrp-Gck-Wmi Reductase Inhibitor; Translations: [Wftpvnq-Nhh-Pmi Reductase Inhibitor] Propensity to adverse reactions 1 Myalgias [facility] (1 source) PAPER TAPE Propensity to adverse reactions 1 Rash [facility] Work Phone: (20 sources) HMG-CoA reductase inhibitor Drug Intolerance 9 Myalgia [facility] Work Phone: (6 sources) Adhesive Tape Propensity to adverse reactions to drug 2 Unknown [facility] Comment on above: PAPER TAPE (5 sources) Cheese; Translations: [CHEESE] Propensity to adverse reactions to drug 2 Diarrhea, Nausea And Vomiting, GI Upset [facility] (1 source) Hmg-Coa Reductase Inhibitors (Statins) Propensity to adverse reactions to drug 2 [facility] Work Phone: (20 sources) Promethazine; Translations: [PROMETHAZINE] Drug Allergy 9 Unknown, Intolerance [facility] Work Phone: (20 sources) PARoxetine; Translations: [PAROXETINE] Drug Allergy 9 Unknown, Intolerance [facility] (20 sources) 5-Alpha Reductase Inhibitors Propensity to adverse reactions 3 [facility] (13 sources) Adhesive Tape-Silicones; Translations: [ADHESIVE TAPE-SILICONES] Drug Allergy 3 Unknown, Rash [facility] (11 sources) Adhesive Tape Propensity to adverse reactions 4 [facility] (7 sources) Wound Dressing Adhesive Drug Allergy 3 Unknown [facility] (11 sources) Adhesive Tape; Translations: [ADHESIVE TAPE (ROSINS)] Propensity to adverse reactions to substance 1 Rash [facility] Work Phone: (2 sources) Adhesive agent; Translations: [ADHESIVE] Propensity to adverse reactions to drug (disorder) 2 [facility] Other [place] Repository (1 source) Adhesive Tape Drug allergy (disorder) 2 [facility] Repository (1 source) Erythromycin Drug Allergy 2 [facility] Repository Medications Current Medications Medication Drug [...] Phosphate Binder, Calcium Start: 06-12-2019 Calcium Carb-D3-Mag [id number] Active 1 EACH PO DAILY June 12, 2019 5:53pm Calcium Carb-D3-Mag [id number]-[id number] 1 EACH tablet (3 sources) Start: 06-12-2019 [...] day. 09/28/2024 Active take 1 capsule by [facility] every eight hours as needed [...] 3 times daily. Active nystatin (Mycost atin) 096756 UNIT/GM powder Apply topically 2 times daily. [...] January 07, 2014 9:25am polyethylene glycol 3350 97870 mg powder for oral solution (2 sources) [...] mouth once daily take 1 capsule by [facility] every twenty-four hours ramipril (Altace) 5 MG [...] Agonist Start: 07-19-2023 End: 07-20-2023 HYDROcodone-acetam inophen ([place]uddie) 5-325 MG per tablet 1 tablet Start: [...] Comment on above: Take 1 capsule by [facility] once daily. 1 ml dexamethasone [...] Discontinued Start: 05-04-2019 take 2 spray(s) by 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 oral hypoglycemic drugs; Translations: [auto 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 rep (current) use of oral hypoglycemic drugs] Onset: 2 Episodic Other aftercare (2 sources) auto 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 rep (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) use of aspirin; Translations: [FPC (current) use of aspirin] Onset: 2 Episodic Other aftercare (2 sources) FPC (current) use of opiate analgesic; Translations: [FPC (current) use of opiate analgesic] Onset: 2 Episodic Other aftercare (1 source) Other detention (current) drug therapy; Translations: [Other 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) drug therapy] Onset: 5 Episodic Other [...] (PPP) [Relative time] 3.3 {INR} Normal [facility] Comment on above: Order Comment: 103.1 Performed By: #### L 501.9985, L501.9520 #### [facility] [address] [place], [place], [id number] PT Coag (PPP) [Time] 34.4 s High 11.7-14.9 [facility] Comment on above: Order Comment: 103.1 Performed By: #### L [id number], [id number] #### [facility] [address] [place], [address] CNOVon 05-01-2025 CNOV Office Visit (PSYLWM ) RANDOLPH HUNTER ([id number]) 1950 F Date Time Provider Department 05/01/25 11:00 AM GILMER COTTON PSYLWM During your visit today, we recorded the following information about you: Gilmer Cotton, PhD 05/01/2025 12:14 PM Signed [facility] Progress Note Randolph Hunter 05/01/2025 [id number] PROVIDER: Gilmer Cotton, PhD CPT Code: Time: [...] feet. 41 (more content not included)... Normal [facility] CNOVon 04-26-2025 CNOV Office Visit (REHMMN ) RANDOLPH HUNTER ([id number]) 1950 F Date Time Provider Department 04/26/25 [...] weeks ago. They're urging her to use ndh-zt-rahah, but she's not comfortable. - Engages in exercises independently, including lifting a 5-pound bar daily. -not currently in PT/OT/speech Patient Entered Data PROMIS No data to display Spasticity NRS No data to display Spasm Scale No data to display Global Impression of Change No data to display Safety concerns regarding living situations and safety at home: No resides at [facility] Risk of falls: Yes during transfers Review [...] exhibit s (more content not included)... Normal [facility] Basic Metabolic Profile (BMP )on 04-20-2025 BUN/CRE 17.9 RATIO Normal 04-10 [facility] Comment on above: Order Comment: 103.1 Performed By: #### L 501.9985, [id number] #### [facility] [address] [place], [place], [id number] Calcium [Mass/Vol] 8.4 mg/dL Normal 7.6-11.0 [facility] Comment on above: Order Comment: 103.1 Performed By: #### L 501.9985, [id number] #### [facility] [address] [place], [address] Chloride [Moles/Vol] 110 mmol/L High 98-108 [facility] Comment on above: Order Comment: 103.1 Performed By: #### L 501.9985, [id number] #### [facility] [address] [place], [address] CO2 [Moles/Vol] 25.5 mmol/L Normal 21.0-32.0 [facility] Comment on above: Order Comment: 103.1 Performed By: #### L [id number], [id number] #### [facility] [address] [place], [address] Creatinine [Mass/Vol] 1.35 mg/dL High 0.70-1.20 [facility] Comment on above: Order Comment: 103.1 Performed By: #### L [id number], [id number] #### [facility] [address] [place], [address] GAP 6 Normal 5-15 [facility] Comment on above: Order Comment: 103.1 Performed By: #### L [id number], [id number] #### [facility] [address] [place], [address] GFR/1.73 sq M.predicted among non-blacks MDRD (S/P/Bld) [Vol rate/Area] 41 mL/min/{1.73_m2} Low >60 [facility] Comment on above: Order Comment: 103.1 Result Comment: mL/m in/1.73m2 CKD-EPI Creatinine Equation (2020) Performed By: #### L 501.9985, [id number] #### [facility] [address] [place], [address] Glucose [Mass/Vol] 87 mg/dL Normal 70-99 [facility] Comment on above: Order Comment: 103.1 Performed By: #### L 501.9985, [id number] #### [facility] [address] [place], [address] Potassium [Moles/Vol] 5.7 mmol/L High 3.3-5.1 [facility] Comment on above: Order Comment: 103.1 Performed By: #### L 501.9985, [id number] #### [facility] [address] [place], [address] Sodium [Moles/Vol] 141 mmol/L Normal 133-145 [facility] Comment on above: Order Comment: 103.1 Performed By: #### L 501.9985, [id number] #### [facility] [address] [place], [address] Urea nitrogen [Mass/Vol] 24 mg/dL High 4-19 [facility] Comment on above: Order Comment: 103.1 Performed By: #### L 501.9985, [id number] #### [facility] [address] [place], [address] CBC-Complete Blood Cnt No Di ffon 04-20-2025 Erythrocyte distribution width (RBC) [Ratio] 13.0 % Normal 11.6-14.6 [facility] Comment on above: Order Comment: 103.1 Performed By: #### L 501.9985, [id number] #### [facility] [address] [place], [address] Hematocrit (Bld) [Volume fraction] 28.7 % Low 37-47 [facility] Comment on above: Order Comment: 103.1 Performed By: #### L 501.9985, [id number] #### [facility] [address] [place], [address] Hemoglobin (Bld) [Mass/Vol] 9.4 g/dL Low 12.0-15.0 [facility] Comment on above: Order Comment: 103.1 Performed By: #### L 501.9985, L501.20 #### [facility] [address] [place], [address] MCH (RBC) [Entitic mass] 29.1 pg Normal 27.0-32.0 [facility] Comment on above: Order Comment: 103.1 Performed By: #### L 501.9985, [id number] #### [facility] [address] [place], [address] MCHC (RBC) [Mass/Vol] 32.8 g/dL Normal 32-36 [facility] Comment on above: Order Comment: 103.1 Performed By: #### L [id number], [id number] #### [facility] [address] [place], [address] MCV (RBC) [Entitic vol] 88.9 fL Normal 81-99 [facility] Comment on above: Order Comment: 103.1 Performed By: #### L 501.9985, [id number] #### [facility] [address] [place], [address] Platelet mean volume (Bld) [Entitic vol] 11.4 fL Normal 6.2-12.0 [facility] Comment on above: Order Comment: 103.1 Performed By: #### L 501.9985, [id number] #### [facility] [address] [place], [address] Platelets (Bld) [#/Vol] 125 10*3/uL Low 150-450 [facility] Comment on above: Order Comment: 103.1 Performed By: #### L 501.9985, [id number] #### [facility] [address] [place], [address] RBC (Bld) [#/Vol] 3.23 10*6/uL Low 4.2-5.4 [facility] Comment on above: Order Comment: 103.1 Performed By: #### L 501.9985, [id number] #### [facility] [address] [place], [address] RDW SD 42.2 fl Normal 35.1-43.9 [facility] Comment on above: Order Comment: 103.1 Performed By: #### L 501.9985, L501.20 #### [facility] [address] [place], [address] WBC (Bld) [#/Vol] 3.7 10*3/uL Low 4.4-11.0 [facility] Comment on above: Order Comment: 103.1 Performed By: #### L 501.9985, L501.20 #### [facility] [address] [place], [address] Prothrombin Time w/INRon INR Coag (PPP) [Relative time] 2.6 {INR} Normal [facility] Comment on above: Order Comment: 103.1 Performed By: #### L 501.9985, [id number] #### [facility] [address] [place], [address] PT Coag (PPP) [Time] 28.6 s High 11.7-14.9 [facility] Comment on above: Order Comment: 103.1 Performed By: #### L 501.9985, [id number] #### [facility] [address] [place], [address] Protime w/INR Fingerstickon 04-05-2025 INR Coag (PPP) [Relative time] 2.0 {INR} Normal [facility] Comment on above: Result Comment: Crit ical Value > 4.0 Performed By: #### L 9200.0000 #### [facility] [address] [place], [address] Protime Coagsen 22.7 SEC High 11.7-14.9 [facility] Comment on above: Performed By: #### L 9200.0000 #### [facility] [address] [facility] [place], [place], [address] International normalized rat io (INR) calculationOrdered By: Min Marroquin on 03-21-2025 INR Coag (Bld) [Relative time] 2.1 {INR} [facility] Prothrombin Time w/INRon INR Coag (PPP) [Relative time] 2.1 {INR} Normal [facility] Comment on above: Performed By: #### L 501.9985, [id number] #### [facility] [address] [place], [place], [address] PT Coag (PPP) [Time] 23.6 s High 11.7-14.9 [facility] Comment on above: Performed By: #### L 501.9985, [id number] #### [facility] [address] [facility] [place], [place], [address] Prothrombin timeOrdered By: Min Marroquin on 03-21-2025 PT Coag (PPP) [Time] 23.6 s High 11.7-14.9 [facility] CNOVon 03-20-2025 CNOV Office Visit (PSYLWM ) RANDOLPH HUNTER ([id number]) 1950 F Date Time Provider Department 03/20/25 3:00 PM GILMER COTTON PSYLWM During your visit today, we recorded the following information about you: Gilmer Cotton, PhD 03/20/2025 4:09 PM Signed [facility] Department Progress Note Randolph Hunter 03/20/2025 [id number] PROVIDER: Gilmer Cotton, PhD CPT Code: Time: [...] directed once a month. blood sugar diagnostic ([employer] VERIO TEST STRIPS) test strip Test blood [...] current facility-administered (more content not included)... Normal [facility] International normalized rat io (INR) calculationOrdered By: Min Marroquin on 03-08-2025 INR Coag (Bld) [Relative time] 2.7 {INR} [facility] Prothrombin Time w/INRon INR Coag (PPP) [Relative time] 2.7 {INR} Normal [facility] Comment on above: Order Comment: 103.1 Performed By: #### L 501.9985, [id number] #### [facility] [address] [place], [place], [id number] PT Coag (PPP) [Time] 29.1 s High 11.7-14.9 [facility] Comment on above: Order Comment: 103.1 Performed By: #### L 501.9985, [id number] #### [facility] [address] [place], [place], [id number] Prothrombin timeOrdered By: Min Marroquin on 03-08-2025 PT Coag (PPP) [Time] 29.1 s High 11.7-14.9 [facility] Hemoglobin A1con 03-02-2025 HbA1c (Bld) [Mass fraction] 5.4 % Normal <=5.6 [facility] Comment on above: Order Comment: 103.1 Result Comment: Norm al < 5.7 % Prediabetic 5.7 - 6.4 % Diabetic >or= 6.5 % Please note range changes. Performed By: #### L 501.9985, L501.9520 #### [facility] [address] [place], [place], [id number] Hemoglobin A1c percentageOrd ered By: Min Marroquin on 03-02-2025 HbA1c (Bld) [Mass fraction] 5.4 % <5.7 [facility] Comment on above: Normal < 5.7 % Predi abetic 5.7 - 6.4 % Diabetic >or= 6.5 % Please note range changes. TSH DL <= 0.005 mIU/L QnOrde red By: Min Marroquin on 03-02-2025 TSH Qn 2.590 uIU/mL 0.300-4.20 0 [facility] Thyroid Stim Hormone (TSH)on 03-02-2025 TSH 2.590 uIU/mL Normal 0.300-4.20 0 [facility] Comment on above: Order Comment: 103.1 Performed By: #### L 501.9985, L501.9520 #### [facility] [address] [place], [place], [id number] International normalized rat io (INR) measurement by fingerstickOrdered By: Min Marroquin on 02-21-2025 INR Coag (BldC) [Relative time] 2.4 [facility] Comment on above: Critical Value > 4.0 Protime w/INR Fingerstickon 02-21-2025 INR Coag (PPP) [Relative time] 2.4 {INR} Normal [facility] Comment on above: Result Comment: Crit ical Value > 4.0 Performed By: #### L 501.9985, [id number] #### [facility] [address] [place], [place], [id number] Protime Coagsen 25.4 SEC High 11.7-14.9 [facility] Comment on above: Performed By: #### L 501.9985, [id number] #### [facility] [address] [place], [place], [id number] Whole blood prothrombin time Ordered By: Min Marroquin on 02-21-2025 PT Coag (Bld) [Time] 25.4 s High 11.7-14.9 [facility] International normalized rat io (INR) measurement by fingerstickOrdered By: Min Marroquin on 02-07-2025 INR Coag (BldC) [Relative time] 2.5 [facility] Comment on above: Critical Value > 4.0 Protime w/INR Fingerstickon 02-07-2025 INR Coag (PPP) [Relative time] 2.5 {INR} Normal [facility] Comment on above: Result Comment: Crit ical Value > 4.0 Performed By: #### L 9200.0000 #### [facility] [address] [place], [address] Protime Coagsen 27.1 SEC High 11.7-14.9 [facility] Comment on above: Performed By: #### L 9200.0000 #### [facility] [address] [place], [address] Whole blood prothrombin time Ordered By: Min Marroquin on 02-07-2025 PT Coag (Bld) [Time] 27.1 s High 11.7-14.9 [facility] International normalized rat io (INR) measurement by fingerstickOrdered By: Min Marroquin on 02-01-2025 INR Coag (BldC) [Relative time] 3.2 [facility] Comment on above: Critical Value > 4.0 Protime w/INR Fingerstickon 02-01-2025 INR Coag (PPP) [Relative time] 3.2 {INR} Normal [facility] Comment on above: Result Comment: Crit ical Value > 4.0 Performed By: #### L 9200.0000 #### [facility] [address] [place], [address] Protime Coagsen 32.6 SEC High 11.7-14.9 [facility] Comment on above: Performed By: #### L 9200.0000 #### [facility] [address] [place], [address] Whole blood prothrombin time Ordered By: Min Marroquin on 02-01-2025 PT Coag (Bld) [Time] 32.6 s High 11.7-14.9 [facility] International normalized rat io (INR) calculationOrdered By: Min Marroquin on 01-31-2025 INR Coag (Bld) [Relative time] 4.0 {INR} Critically high [facility] Comment on above: CRITICAL VALUE ALBERTO CHAVARRIAER LABORER [employer]TER PLANT ([facility])01/31/25 0949 Steven Fagan.RESULTS READ BACK BY SAME. Prothrombin Time w/INRon INR Coag (PPP) [Relative time] 4.0 {INR} Invalid Interpretation Code [facility] Comment on above: Result Comment: CRIT ICAL VALUE CALLED TO MARIA TERESA SALVADOR ([facility]) 01/31/25 0949 Steven Fagan. RESULTS READ BACK BY SAME. Performed By: #### L 300.3900 #### [facility] [address] [place], [address] PT Coag (PPP) [Time] 40.0 s High 11.7-14.9 [facility] Comment on above: Performed By: #### L 300.3900 #### [facility] [address] [place], [address] Prothrombin timeOrdered By: Min Marroquin on 01-31-2025 PT Coag (PPP) [Time] 40.0 s High 11.7-14.9 [facility] International normalized rat io (INR) measurement by fingerstickOrdered By: Min Marroquin on 01-24-2025 INR Coag (BldC) [Relative time] 3.8 [facility] Comment on above: Critical Value > 4.0 Protime w/INR Fingerstickon 01-24-2025 INR Coag (PPP) [Relative time] 3.8 {INR} Normal [facility] Comment on above: Result Comment: Crit ical Value > 4.0 Performed By: #### L 9200.0000 #### [facility] [address] [place], [address] Protime Coagsen 38.5 SEC High 11.7-14.9 [facility] Comment on above: Performed By: #### L [id number] #### [facility] [address] [place], [address] Whole blood prothrombin time Ordered By: Min Marroquin on 01-24-2025 PT Coag (Bld) [Time] 38.5 s High 11.7-14.9 [facility] International normalized rat io (INR) measurement by fingerstickOrdered By: Min Marroquin on 01-17-2025 INR Coag (BldC) [Relative time] 1.5 [facility] Comment on above: Critical Value > 4.0 Protime w/INR Fingerstickon 01-17-2025 INR Coag (PPP) [Relative time] 1.5 {INR} Normal [facility] Comment on above: Result Comment: Crit ical Value > 4.0 Performed By: #### L 501.9985, [id number] #### [facility] [address] [place], [place], [id number] Protime Coagsen 17.2 SEC High 11.7-14.9 [facility] Comment on above: Performed By: #### L 501.9985, [id number] #### [facility] [address] [address] [place], [place], [id number] Whole blood prothrombin time Ordered By: Min Marroquin on 01-17-2025 PT Coag (Bld) [Time] 17.2 s High 11.7-14.9 [facility] CNOVon 01-10-2025 CNOV Office Visit (PSYLWM ) RANDOLPH HUNTER ([id number]) 1950 F Date Time Provider Department 01/10/25 11:00 AM GILMER COTTON PSYLWM During your visit today, we recorded the following information about you: Gilmer Cotton, PhD 01/10/2025 12:09 PM Signed [facility] Department Progress Note Randolph Hunter 01/10/2025 [id number] PROVIDER: Gilmer Cotton, PhD CPT Code: Time: [...] directed once a month. blood sugar diagnostic (GridBridge VERIO TEST STRIPS) test strip Test blood [...] Issues: No change from previous appointment DIAGNOSIS: [place] I (more content not included)... Normal [facility] normalized rat io (INR) measurement by fingerstickOrdered By: Min Marroquin on 01-09-2025 INR Coag (BldC) [Relative time] 2.9 [facility] Comment on above: Critical Value > 4.0 Protime w/INR Fingerstickon 01-09-2025 INR Coag (PPP) [Relative time] 2.9 {INR} Normal [facility] Comment on above: Result Comment: Crit ical Value > 4.0 Performed By: #### L 9200.0000 #### [facility] [address] [place], [place], [address] Protime Coagsen 30.5 SEC High 11.7-14.9 [facility] Comment on above: Performed By: #### L 9200.0000 #### [facility] [address] [place], [place], [address] Whole blood prothrombin time Ordered By: Min Marroquin on 01-09-2025 PT Coag (Bld) [Time] 30.5 s High 11.7-14.9 [facility] Urine Cultureon 01-06-2025 URC Klebsiella pneumonia e sp pneum Cuervo Count 50,000-80,000 Escherichia coli Escherichia coli Klebsiella [...] B-Lactamase Extended Susc Islt NEG Gentamicin Islt ONRMA <=1 S levoFLOXacin Islt NORMA <=0.12 S Meropenem Islt NORMA <=0.25 S Nitrofurantoin Islt NORMA 32 S Pip+Tazo Islt NORMA <=4 S TMP SMX Islt NORMA <=20 S Normal [facility] Comment on above: Performed By: #### L 400.0001, M100.2199 #### [facility] [address] [place], [place], [id number] Bilirubin Test strip Ql (U)O rdered By: Min Marroquin on 01-03-2025 Bilirubin Ql (U) Negative Negative [facility] Ketones Test strip Ql (U)Ord ered By: Min Marroquin on 01-03-2025 Ketones Ql (U) Negative Negative [facility] Microscopic analysis of urin e for red blood cells (RBC)Ordered By: Min Marroquin on 01-03-2025 Microscopic analysis of urine for red blood cells (RBC) 10-25 SEEN /hpf 0-5 [facility] Mucus LM Ql (Urine sed)Order ed By: Min Marroquin on 01-03-2025 Mucus Ql (Urine sed) 0 SEEN /hpf [facility] Nitrite Test strip Ql (U)Ord ered By: Min Marroquin on 01-03-2025 Nitrite Ql (U) Negative Negative [facility] Protein Test strip Ql (U)Ord ered By: Min Marroquin on 01-03-2025 Protein Ql (U) 100 mg/dl High Negative [facility] Squamous epithelial cells de tection in urine sediment by light microscopyOrdered By: Min Marroquin on 01-03-2025 Epithelial cells.squamous LM Ql (Urine sed) 0 SEEN /hpf 5-10 [facility] Urinalysis, Completeon 01-03 RBC 10-25 SEEN Normal 0-5 [facility] Comment on above: Order Comment: CLAU TER SPECIMEN Performed By: #### L 400.0001, M100.2200 #### [facility] [address] [place], [address] WBC >100 SEEN Normal 0-5 [facility] Comment on above: Order Comment: CLAU TER SPECIMEN Performed By: #### L 400.0001, M100.2200 #### [facility] [address] [place], [address] BACTERIA 0 SEEN Normal None Seen [facility] Comment on above: Order Comment: CLAU TER SPECIMEN Performed By: #### L 400.0001, M100.2200 #### [facility] [address] [place], [address] EPI,SQUAMOUS 0 SEEN Normal 5-10 [facility] Comment on above: Order Comment: CLAU TER SPECIMEN Performed By: #### L 400.0001, M100.2200 #### [facility] [address] [place], [address] Mucus Ql (Urine sed) 0 SEEN Normal [facility] Comment on above: Order Comment: CLAU TER SPECIMEN Performed By: #### L 400.0001, M100.2200 #### [facility] [address] [place], [address] Urine clarityOrdered By: Chavo Marroquin on 01-03-2025 Clarity (U) Turbid Clear [facility] Urine color determinationOrd ered By: Min Marroquin on 01-03-2025 Color (U) Yellow Yellow [facility] Urine cultureOrdered By: Chavo Marroquin on 01-03-2025 Bacteria identified Cx Nom (U) Klebsiella pneumoniae sp pneum Abnormal [facility] Bacteria identified Cx Nom (U) Escherichia coli Abnormal [facility] Urine glucose detectionOrder ed By: Min Marroquin on 01-03-2025 Glucose Ql (U) Normal mg/dl Normal [facility] Urine leukocyte esterase det ection by dipstickOrdered By: Min Marroquin on 01-03-2025 Leukocyte esterase Test strip Ql (U) 500 /ul High Negative [facility] Urine pHOrdered By: Min solis on 01-03-2025 pH (U) 6.0 [pH] 5.0 - 8.0 [facility] Urine sediment bacteria coun t by microscopy (number/high power field)Ordered By: Min Marroquin on 01-03-2025 Bacteria LM.HPF (Urine sed) [#/Area] 0 /[HPF] None Seen [facility] Urine specific gravity measu rementOrdered By: Min Marroquin on 01-03-2025 Specific gravity (U) [Rel density] 1.015 1.002-1.03 0 [facility] Urine urobilinogen measureme ntOrdered By: Min Marroquin on 01-03-2025 Urobilinogen Ql (U) Normal mg/dl Normal [facility] White blood cell countOrdere d By: Min Marroquin on 01-03-2025 White blood cell count >100 SEEN /hpf 0-5 [facility] normalized rat io (INR) measurement by fingerstickOrdered By: Min Marroquin on 01-02-2025 INR Coag (BldC) [Relative time] 2.4 [facility] Comment on above: Critical Value > 4.0 Protime w/INR Fingerstickon 01-02-2025 INR Coag (PPP) [Relative time] 2.4 {INR} Normal [facility] Comment on above: Result Comment: Crit ical Value > 4.0 Performed By: #### L 501.9985, L501.9520 #### [facility] [address] [facility] [place], [address] Protime Coagsen 25.4 SEC High 11.7-14.9 [facility] Comment on above: Performed By: #### L 501.9985, L501.9520 #### [facility] [address] [place], [address] Whole blood prothrombin time Ordered By: Min Marroquin on 01-02-2025 PT Coag (Bld) [Time] 25.4 s High 11.7-14.9 [facility] International normalized rat io (INR) measurement by fingerstickOrdered By: Min Marroquin on 12-19-2024 INR Coag (BldC) [Relative time] 2.3 [facility] Comment on above: Critical Value > 4.0 Protime w/INR Fingerstickon 12-19-2024 INR Coag (PPP) [Relative time] 2.3 {INR} Normal [facility] Comment on above: Result Comment: Crit ical Value > 4.0 Performed By: #### L 501.9985, L501.9520 #### [facility] [address] [place], [place], [id number] Protime Coagsen 24.7 SEC High 11.7-14.9 [facility] Comment on above: Performed By: #### L 501.9985, L501.9520 #### [facility] [address] [place], [place], [address] Whole blood prothrombin time Ordered By: Min Marroquin on 12-19-2024 PT Coag (Bld) [Time] 24.7 s High 11.7-14.9 [facility] CNOVon 12-06-2024 CNOV Office Visit (PSYLWM ) RANDOLPH HUNTER ([id number]) 1950 F Date Time Provider Department 12/06/24 11:00 AM GILMER COTTON PSYLWM During your visit today, we recorded the following information about you: Gilmer Cotton, PhD 12/06/2024 12:04 PM Signed [facility] Department Progress Note Randolph Hunter 12/06/2024 [id number] PROVIDER: Gilmer Cotton, PhD CPT Code: Time: [...] illness Pt moved now a week at [facility] [place] so far and she believes it [...] directed once a month. blood sugar diagnostic (GridBridge VERIO TEST STRIPS) test strip Test blood [...] Issues: No change from previous appointment DIAGNOSIS: [place] I: Depres (more content not included)... Normal [facility] Anion gap in Serum or Plasma Ordered By: Min Marroquin on 12-05-2024 Anion gap [Moles/Vol] 6 mmol/L 5-15 [facility] BUN/creatinine ratioOrdered By: Mni Marroquin on 12-05-2024 Urea nitrogen/Creatinine [Mass ratio] 17.2 mg/mg - [facility] Basic Metabolic Profile (BMP )on 12-05-2024 BUN/CRE 17.2 RATIO Normal - [facility] Comment on above: Order Comment: 130.2 Performed By: #### L 500.2500, L100.0500, L300.3900 #### [facility] [address] [place], [address] Calcium [Mass/Vol] 8.5 mg/dL Normal 7.6-11.0 [facility] Comment on above: Order Comment: 130.2 Performed By: #### L 500.2500, L100.0500, L300.3900 #### [facility] [address] [place], [address] Chloride [Moles/Vol] 107 mmol/L Normal 98-108 [facility] Comment on above: Order Comment: 130.2 Performed By: #### L 500.2500, L100.0500, L300.3900 #### [facility] [address] [place], [address] CO2 [Moles/Vol] 26.6 mmol/L Normal 21.0-32.0 [facility] Comment on above: Order Comment: 130.2 Performed By: #### L 500.2500, L100.0500, L300.3900 #### [facility] [address] [place], [address] Creatinine [Mass/Vol] 0.93 mg/dL Normal 0.70-1.20 [facility] Comment on above: Order Comment: 130.2 Performed By: #### L 500.2500, L100.0500, L300.3900 #### [facility] [address] [place], [address] GAP 6 Normal 5-15 [facility] Comment on above: Order Comment: 130.2 Performed By: #### L 500.2500, L100.0500, L300.3900 #### [facility] [address] [place], [address] GFR/1.73 sq M.predicted among non-blacks MDRD (S/P/Bld) [Vol rate/Area] 65 mL/min/{1.73_m2} Normal >60 [facility] Comment on above: Order Comment: 130.2 Result Comment: mL/m in/1.73m2 CKD-EPI Creatinine Equation (2020) Performed By: #### L 500.2500, L100.0500, L300.3900 #### [facility] [address] [place], [address] Glucose [Mass/Vol] 97 mg/dL Normal 70-99 [facility] Comment on above: Order Comment: 130.2 Performed By: #### L 500.2500, L100.0500, L300.3900 #### [facility] [address] [place], [address] Potassium [Moles/Vol] 4.9 mmol/L Normal 3.3-5.1 [facility] Comment on above: Order Comment: 130.2 Result Comment: Hemo lysis present, Results??could be affected. ?? Performed By: #### L 500.2500, L100.0500, L300.3900 #### [facility] [address] [place], [address] Sodium [Moles/Vol] 140 mmol/L Normal 133-145 [facility] Comment on above: Order Comment: 130.2 Performed By: #### L 500.2500, L100.0500, L300.3900 #### [facility] [address] [place], [address] Urea nitrogen [Mass/Vol] 16 mg/dL Normal 4-19 [facility] Comment on above: Order Comment: 130.2 Performed By: #### L 500.2500, L100.0500, L300.3900 #### [facility] [address] [place], [address] CBC-Complete Blood Cnt No ffon 12-05-2024 Erythrocyte distribution width (RBC) [Ratio] 13.6 % Normal 11.6-14.6 [facility] Comment on above: Order Comment: 130.2 Performed By: #### L 500.2500, L100.0500, L300.3900 #### [facility] [address] [place], [address] Hematocrit (Bld) [Volume fraction] 31.9 % Low 37-47 [facility] Comment on above: Order Comment: 130.2 Performed By: #### L 500.2500, L100.0500, L300.3900 #### [facility] [address] [place], [address] Hemoglobin (Bld) [Mass/Vol] 10.4 g/dL Low 12.0-15.0 [facility] Comment on above: Order Comment: 130.2 Performed By: #### L 500.2500, L100.0500, L300.3900 #### [facility] [address] [place], [address] MCH (RBC) [Entitic mass] 30.2 pg Normal 27.0-32.0 [facility] Comment on above: Order Comment: 130.2 Performed By: #### L 500.2500, L100.0500, L300.3900 #### [facility] [address] [place], [address] MCHC (RBC) [Mass/Vol] 32.6 g/dL Normal 32-36 [facility] Comment on above: Order Comment: 130.2 Performed By: #### L 500.2500, L100.0500, L300.3900 #### [facility] [address] [place], [address] MCV (RBC) [Entitic vol] 92.7 fL Normal 81-99 [facility] Comment on above: Order Comment: 130.2 Performed By: #### L 500.2500, L100.0500, L300.3900 #### [facility] [address] [place], [address] Platelet mean volume (Bld) [Entitic vol] 10.1 fL Normal 6.2-12.0 [facility] Comment on above: Order Comment: 130.2 Performed By: #### L 500.2500, L100.0500, L300.3900 #### [facility] [address] [place], [address] Platelets (Bld) [#/Vol] 147 10*3/uL Low 150-450 [facility] Comment on above: Order Comment: 130.2 Performed By: #### L 500.2500, L100.0500, L300.3900 #### [facility] [address] [place], [address] RBC (Bld) [#/Vol] 3.44 10*6/uL Low 4.2-5.4 [facility] Comment on above: Order Comment: 130.2 Performed By: #### L 500.2500, L100.0500, L300.3900 #### [facility] [address] [place], [address] RDW SD 45.9 fl High 35.1-43.9 [facility] Comment on above: Order Comment: 130.2 Performed By: #### L 500.2500, L100.0500, L300.3900 #### [facility] [address] [place], [address] WBC (Bld) [#/Vol] 4.1 10*3/uL Low 4.4-11.0 [facility] Comment on above: Order Comment: 130.2 Performed By: #### L 500.2500, L100.0500, L300.3900 #### [facility] [address] [place], [address] Carbon dioxide, total [Moles /volume] in Central venous bloodOrdered By: Min Marroquin on 12-05-2024 CO2 [Moles/Vol] 26.6 mmol/L 21.0-32.0 [facility] Chloride assayOrdered By: Rhea Marroquin on 12-05-2024 Chloride [Moles/Vol] 107 mmol/L 98-108 [facility] Erythrocyte distribution wid th ratioOrdered By: Min Marroquin on 12-05-2024 Erythrocyte distribution width (RBC) [Ratio] 13.6 % 11.6-14.6 [facility] Erythrocyte distribution wid th standard deviationOrdered By: Min Marroquin on 12-05-2024 Erythrocyte distribution width (RBC) [Ratio] 45.9 fl High 35.1-43.9 [facility] Glomerular filtration rate ( GFR) estimation/1.73 sq m using serum, plasma, or whole bOrdered By: Min Marroquin on 12-05-2024 GFR/1.73 sq M.predicted among non-blacks MDRD (S/P/Bld) [Vol rate/Area] 65 mL/min/{1.73_m2} >60 [facility] Comment on above: mL/min/1.73m2 CKD-EP I Creatinine Equation (2020) Hematocrit Auto (Bld) [Volum e fraction]Ordered By: Min Marroquin on 12-05-2024 Hematocrit (Bld) [Volume fraction] 31.9 % Low 37-47 [facility] Hemoglobin measurementOrdere d By: Min Marroquin on 12-05-2024 Hemoglobin (Bld) [Mass/Vol] 10.4 g/dL Low 12.0-15.0 [facility] International normalized rat io (INR) calculationOrdered By: Min Marroquin on 12-05-2024 INR Coag (Bld) [Relative time] 1.7 {INR} [facility] MCV (mean corpuscular volume ) determinationOrdered By: Min Marroquin on 12-05-2024 MCV (RBC) [Entitic vol] 92.7 fL 81-99 [facility] Mean corpuscular hemoglobin (MCH) determinationOrdered By: Min Marroquin on 12-05-2024 MCH (RBC) [Entitic mass] 30.2 pg 27.0-32.0 [facility] Mean corpuscular hemoglobin concentration (MCHC) determinationOrdered By: Min Marroquin on 12-05-2024 MCHC (RBC) [Mass/Vol] 32.6 g/dL 32-36 [facility] Mean platelet volume determi nationOrdered By: Min Marroquin on 12-05-2024 Platelet mean volume (Bld) [Entitic vol] 10.1 fL 6.2-12.0 [facility] Platelet countOrdered By: Rhea Marroquin on 12-05-2024 Platelets (Bld) [#/Vol] 147 10*3/uL Low 150-450 [facility] Potassium measurement (mass/ volume)Ordered By: Min Marroquin on 12-05-2024 Potassium (Unsp spec) [Mass/Vol] 4.9 mmol/L 3.3-5.1 [facility] Comment on above: Hemolysis present, R esults could be affected. Prothrombin Time w/INRon INR Coag (PPP) [Relative time] 1.7 {INR} Normal [facility] Comment on above: Order Comment: 130.2 Performed By: #### L 500.2500, L100.0500, L300.3900 #### [facility] [address] [place], [address] PT Coag (PPP) [Time] 20.2 s High 11.7-14.9 [facility] Comment on above: Order Comment: 130.2 Performed By: #### L 500.2500, L100.0500, L300.3900 #### [facility] [address] [place], [address] Prothrombin timeOrdered By: Min Marroquin on 12-05-2024 PT Coag (PPP) [Time] 20.2 s High 11.7-14.9 [facility] RBC Auto (Bld) [#/Vol]Ordere d By: Min Marroquin on 12-05-2024 RBC (Bld) [#/Vol] 3.44 10*6/uL Low 4.2-5.4 [facility] Serum creatinine measurement (mass/volume)Ordered By: Min Marroquin on 12-05-2024 Creatinine [Mass/Vol] 0.93 mg/dL 0.70-1.20 [facility] Serum glucose measurement (m ass/volume)Ordered By: Min Marroquin on 12-05-2024 Glucose [Mass/Vol] 97 mg/dL 70-99 [facility] Serum or plasma calcium aura urement (mass/volume)Ordered By: Min Marroquin on 12-05-2024 Calcium [Mass/Vol] 8.5 mg/dL 7.6-11.0 [facility] Serum or plasma urea nitroge n measurement (mass/volume)Ordered By: Min Marroquin on 12-05-2024 Urea nitrogen [Mass/Vol] 16 mg/dL 4-19 [facility] Sodium levelOrdered By: Min Marroquin on 12-05-2024 Sodium [Moles/Vol] 140 mmol/L 133-145 [facility] White blood cell (WBC) count Ordered By: Min Marroquin on 12-05-2024 WBC (Bld) [#/Vol] 4.1 10*3/uL Low 4.4-11.0 [facility] MRI ANKLE WO IVCON LTon 05-2 MRI ANKLE WO IVCON LT * * *Final Report* * * DATE OF EXAM: Nov 08 2024 11:35AM [facility] 0163 - MRI ANKLE WO IVCON LT [...] number above, please feel free to contact [facility] eRadiology at [phone]. [id number] [facility] CNOVon 10-27-2024 CNOV Office Visit (PODIWS ) RANDOLPH HUNTER ([id number]) 1950 F Date Time Provider Department 10/27/24 [...] and injured herself. She is currently at [facility]. Has a history of cerebral palsy with [...] sugar diagnost (more content not included)... Normal [facility] XR ANKLE 3V AP/LAT/OBL LTon 10-27-2024 [...] No radiographic evidence of acute osseous injury Psychology Professor: [facility] Transcribe Date/Time: Nov 01 2024 4:44P Dictated by : JAYDEN JOVEL MD This examination was interpreted and the report reviewed and electronically signed by: JAYDEN JOVEL MD on Nov 01 2024 4:45PM EST [id number] Normal [facility] XR TIBIA FIBULA 2V AP/LAT LT [...] No radiographic evidence of acute osseous injury Psychology Professor: [facility] Transcribe Date/Time: Nov 01 2024 4:44P Dictated by : JAYDEN JOVEL MD This examination was interpreted and the report reviewed and electronically signed by: JAYDEN JOVEL MD on Nov 01 2024 4:45PM EST [id number] Normal [facility] PT panel Coag (PPP)on 2024 INR Coag (PPP) [Relative time] 2.3 {INR} High 0.9-1.3 [facility] Comment on above: Order Comment: Suzanne garcia Type: BLOOD SPECIMEN Ordering Facility: [facility] Address: [address] [place] [address] Result Comment: Kaycee min K Antagonist (VKA) Therapeutic Range: INR 2 to 3 (Target INR of 2.5) Note: For patients treated with VKA drugs, such as warfarin, the [employer] [employer] 2012 Guideline recommends [...] 2.5 to 3.5 (target INR of 3). Anomltt GH, et al. Chest 2012, 141:7S-47S Roshni RA, et al. [facility] 2017, 70: 252-289 Performed By: #### 3 4528-0 #### [facility] CLIA [id number] [address] [place] [address] [place] PT Coag (PPP) [Time] 23.1 s High 9.7-13.0 [facility] Comment on above: Order Comment: Suzanne garcia Type: BLOOD SPECIMEN Ordering Facility: [facility] Address: [address] [place] [address] Performed By: #### 3 4528-0 #### [facility] CLIA [id number] [address] [place], [place] [address] [place] [id number] [place] [facility] PT panel Coag (PPP)on 2024 INR Coag (PPP) [Relative time] 3.8 {INR} High 0.9-1.3 [facility] Comment on above: Order Comment: Suzanne garcia Type: BLOOD SPECIMEN Ordering Facility: [facility] Address: [address] [place] [address] Result Comment: Kaycee min K Antagonist (VKA) Therapeutic Range: INR 2 to 3 (Target INR of 2.5) Note: For patients treated with VKA drugs, such as warfarin, the [employer] 2012 Guideline recommends [...] Keegan GH, et al. Chest 2012, 141:7S-47S Rosnhi RA, et al. [facility] 2017, 70: 252-289 Performed By: #### 3 4528-0 #### [facility] CLIA [id number] [address] [place], [place] [address] [place] [address] [place] PT Coag (PPP) [Time] 37.1 s High 9.7-13.0 [facility] Comment on above: Order Comment: Suzanne garcia Type: BLOOD SPECIMEN Ordering Facility: [facility] Address: [address] [place] [address] Performed By: #### 3 4528-0 #### [facility] CLIA [id number] [address] [place], [place] [address] [address] [place] CNOVon 10-19-2024 CNOV Office Visit (ORMDNA ) RANDOLPH HUNTER ([id number]) 1950 F Date Time Provider Department 10/19/24 [...] directed once a month. blood sugar diagnostic ([employer]Bridge VERIO TEST STRIPS) test strip Test blood [...] Status Change Penicillins Hives Dioxicillin Promethazine Intolerance Qzrkxok-Ggf-Hff Red* Myalgia PAST MEDICAL HISTORY PAST MEDICAL HISTORY Diagnosis Date CAD (coronary artery disease) Carotid a (more content not included)... Normal [facility] Large Joint Arthro/Inj: L kn ee [...] these instructions. Informed Consent Consent Obtained: Verbal [place] Protocol A moment to CARE was completed. [...] the bedside nurse for hospitalized patients) applicable. [facility] CNDSon 09-28-2024 [facility] HNO ID: [id number] Author: SAGE LOERA MD Service: Hospital Medicine [...] No pending results Discharge Disposition Discharge Disposition: Senior Living Facility - Less than 30 Days Activity [...] (cerebral palsy) (HCC) (POA: Yes) --Presented to [place] ED for evaluation of left knee pain [...] lupus erythematosus) (HCC) (POA: Yes) --Plaquenil as TIRE RECAPPER T (more content not included)... Normal [facility] Magnesium SerPl-mCncon 09-28 Magnesium [Mass/Vol] 1.7 mg/dL Normal 1.7-2.3 [facility] Comment on above: Order Comment: Suzanne garcia Type: BLOOD SPECIMENOrdering Facility: [facility] Address: [address] [place] [address] Performed By: #### 1 9123-9 ####[facility] [id number] [place] [address] [facility] NURSING PROGon 09-28-2024 NURSING PROG HNO ID: [id number] Author: CHARLEY BARRIENTOS RN Service: Nursing Author Type: Registered Nurse Type: Nursing Progress Note Filed: 09/28/2024 16:32 Note Text: Other: 1625: Patient discharged in stable condition. Left floor via cart w/[employer]. Discharge paperwork and all personal belongings w/patient. Normal [facility] PT panel Coag (PPP)on 2024 INR Coag (PPP) [Relative time] 2.1 {INR} High 0.9-1.3 [facility] Comment on above: Order Comment: Suzanne garcia Type: BLOOD SPECIMENOrdering Facility: [facility] Address: [address] [place] [address] Result Comment: Kaycee min K Antagonist (VKA) Therapeutic Range: INR 2 to 3 (Target INR of 2.5) Note: For patients treated with VKA drugs, such as warfarin, the [place] [employer] 2012 Guideline recommends [...] Chest 2012, 141:7S-47S Roshni CASTILLO et al. [facility] 2017, 70: 252-289 Performed By: #### 3 4528-0 ####[facility] LABORATORYCLIA [id number] [address] STATES OF [facility] PT Coag (PPP) [Time] 22.0 s High 9.7-13.0 [facility] Comment on above: Order Comment: Speci men Type: BLOOD SPECIMENOrdering Facility: [facility] Address: [address] [place] [address] Performed By: #### 3 4528-0 ####[facility] LABORATORYCLIA [id number] [address] PT panel Coag (PPP)on 2024 INR Coag (PPP) [Relative time] 2.8 {INR} High 0.9-1.3 [facility] Comment on above: Order Comment: Speci men Type: BLOOD SPECIMENOrdering Facility: [facility] Address: [address] [place] [address] Result Comment: Kaycee min K Antagonist (VKA) Therapeutic Range: INR 2 to 3 (Target INR of 2.5) Note: For patients treated with VKA drugs, such as warfarin, the [place] [employer] 2012 Guideline recommends [...] Chest 2012, 141:7S-47S Roshni CASTILLO et al. [facility] 2017, 70: 252-289 Performed By: #### 3 4528-0 ####[facility] LABORATORYCLIA [id number] [place] [id number] [place] PT Coag (PPP) [Time] 27.9 s High 9.7-13.0 [facility] Comment on above: Order Comment: Speci men Type: BLOOD SPECIMENOrdering Facility: [facility] Address: [address] [place] [address] Performed By: #### 3 4528-0 ####[facility] LABORATORYCLIA [id number] [place] [address] [facility] NUTRITIONon 09-26-2024 NUTRITION HNO ID: [id number] Author: SALVADOR ISLAS RD Service: Nutrition Therapy [...] Drain Duration External Collection Device 09/18/24 2332 [facility] 7 days MNT Billing: $ Reassessment: 1-15 minutes SIGNATURE: Salvador Islas RD PATIENT NAME: Randolph Hunter DATE: September 26, 2024 TIME: 3:09 PM Normal [facility] PT panel Coag (PPP)on 2024 INR Coag (PPP) [Relative time] 4.1 {INR} High 0.9-1.3 [facility] Comment on above: Order Comment: Suzanne garcia Type: BLOOD SPECIMENOrdering Facility: [facility] Address: [address] [place], [place] [address] Result Comment: Kaycee min K Antagonist (VKA) Therapeutic Range: INR 2 to 3 (Target INR of 2.5) Note: For patients treated with VKA drugs, such as warfarin, the [place] [employer] 2012 Guideline recommends [...] Chest 2012, 141:7S-47S Roshni RA, et al. [facility] 2017, 70: 252-289 Performed By: #### 3 4528-0 ####[facility] LABORATORYCLIA [id number] [place] [address] [place] PT Coag (PPP) [Time] 39.9 s High 9.7-13.0 [facility] Comment on above: Order Comment: Suzanne garcia Type: BLOOD SPECIMENOrdering Facility: [facility] Address: [address] [place], [place] [address] Performed By: #### 3 4528-0 ####[facility]ST[facility] LABORATORYCLIA [id number] [place] [address] [place] THERAPY NTon 09-26-2024 THERAPY NT HNO ID: [id number] Author: ESTELLE CAGE PT Service: Physical Therapy Author Type: Physical Therapist Type: Therapy (PT/OT/Speech/Resp) Filed: 09/26/2024 12:08 Note Text: Summary: PT treatment Physical Therapy Treatment Summary SERVICE DATE: 09/26/2024 SERVICE TIME: 1130 to 1155 ROOM: [id number] PT 6 Clicks Score: 14 DISCHARGE RECOMMENDATIONS [...] is struggling to ambulate. Patient admitted to [facility] with Dx: Decreased activities of daily living (ADL), Fall at home, initial encounter Relevant Past Medical History: DM, edema, depression,asthma, obesity, irsutism, venous insufficiency, oseteomyeliitis of foot, SLE, cerebral palsy, pulmonary embolism, hypothyroidism, insomnai, CAD, migraines, HTN, hysterectomy HOME LIVING Patient Lives With: Facility Care, Spouse, Other: See Comment Comments: [place] with spouse Assistance Available: 24-Hour Comments: LONG TERM staff for toileting and shower Entry To Home: No Stairs Number Of Stairs To Bed/Bath: 0 Tub/Shower Type: Accessible WIS with shower chair + grab bars, has assistance/supervision for transfers Laundry: LONG TERM staff completes Equipment Owned: Lift Chair, Commode- [...] DIAGNOSIS Reduced mobility-other TREATMENT INTERVENTIONS Therapeutic Activity (67996) Timed Code Treatment (minutes): 25 Skilled Treatment Time (minutes): 25 Therapeutic Activity (82773) Treatment Minutes: 25 $ Therapeutic Activity (73557) Billed Units: 2 units TRAINING AND EDUCATION [...] Inform (more content not included)... [facility] THERAPY NT HNO ID: [id number] Author: BARBARA CHU OTR/Abiodun Service: Occupational Therapy Author Type: Occupational Therapist Type: Therapy (PT/OT/Speech/Resp) Filed: 09/26/2024 11:51 Note Text: Summary: OT precert note Occupational Therapy Treatment Summary SERVICE DATE: 09/26/2024 SERVICE TIME: 1100 to 1136 ROOM: [place] [address] OT 6 Clicks Score: 13 DISCHARGE RECOMMENDATIONS [...] is struggling to ambulate. Patient admitted to [facility] with Dx: Decreased activities of daily living (ADL), Fall at home, initial encounter Relevant Past Medical History: DM, edema, depression,asthma, obesity, irsutism, venous insufficiency, oseteomyeliitis of foot, SLE, cerebral palsy, pulmonary embolism, hypothyroidism, insomnai, CAD, migraines, HTN, hysterectomy HOME LIVING Patient Lives With: Facility Care, Spouse, Other: See Comment Comments: [place] with spouse Assistance Available: 24-Hour Comments: LONG TERM staff for toileting and shower Entry To Home: No Stairs Number Of Stairs To Bed/Bath: 0 Tub/Shower Type: Accessible WIS with shower chair + grab bars, has assistance/supervision for transfers Laundry: LONG TERM staff completes Equipment Owned: Lift Chair, Commode- [...] symptoms and signs-other TREATMENT INTERVENTIONS Therapeutic Exercise (83799), Self Senior Living Management (05114) Timed Code Treatment (minutes): 27 Skilled Treatment [...] Assista (more content not included)... [facility] THERAPY NT HNO ID: [id number] Author: ESTELLE CAGE PT Service: Physical Therapy Author Type: Physical Therapist Type: Therapy (PT/OT/Speech/Resp) Filed: 09/26/2024 10:54 Note Text: PHYSICAL THERAPY MISSED VISIT SERVICE DATE: 09/26/2024 SERVICE TIME: 1045 ROOM: [place] [address] Patient not seen due to Patient Not Available.patient was cleaned up and had another bowel movement and has called for assist getting cleaned up. Will re approach when available/appropriate. Secure chat to team and spoke with cm. SIGNATURE: Estelle Cage PT PATIENT NAME: Randolph Hunter DATE: September 26, 2024 TIME: 10:53 AM [facility] NT HNO ID: [id number] Author: ESTELLE CAGE PT Service: Physical Therapy Author Type: Physical Therapist Type: Therapy (PT/OT/Speech/Resp) Filed: 09/26/2024 09:42 Note Text: Summary: PT missed visit PHYSICAL THERAPY MISSED VISIT SERVICE DATE: 09/26/2024 SERVICE TIME: 929 ROOM: [place] [address] Patient not seen due to Patient Not Available. Patient was incontinent of bowel and PCNA in room to get patient cleaned up. Received request from for precert. Will re approach as patient is available. SIGNATURE: Estelle Cage PT PATIENT NAME: Randolph Hunter DATE: September 26, 2024 TIME: 9:41 AM [facility] THERAPY NT HNO ID: [id number] Author: TANIA PERDUE OT/Abiodun Service: Occupational Therapy Author Type: Occupational Therapist Type: Therapy (PT/OT/Speech/Resp) Filed: 09/26/2024 09:21 Note Text: Summary: OT Missed Visit OCCUPATIONAL THERAPY MISSED VISIT SERVICE DATE: 09/26/2024 SERVICE TIME: 907 ROOM: [place] [address] Patient not seen due to Patient Not Available. Initiated OT session however pt became incontinent of bowel during progression of supine>sit. PCNA and RN notified, deferred further OT at this time. CM notified as this patient has precert needs. Will re-attempt as schedule allows. SIGNATURE: Tania Perdue OT/Abiodun PATIENT NAME: Randolph Hunter DATE: September 26, 2024 TIME: 9:19 AM [facility] CBC panel Auto (Bld)on 09-25 Erythrocyte distribution width (RBC) [Ratio] 13.5 % Normal 11.5-15.0 [facility] Comment on above: Order Comment: Speci men Type: BLOOD SPECIMENOrdering Facility: [facility] Address: [address] [place] [address] Performed By: #### 5 8410-2 ####[facility] LABORATORYCLIA [id number] [address] [place] Hematocrit (Bld) [Volume fraction] 38.8 % Normal 36.0-46.0 [facility] Comment on above: Order Comment: Speci men Type: BLOOD SPECIMENOrdering Facility: [facility] Address: [address] [place] [address] Performed By: #### 5 8410-2 ####CERV[facility] LABORATORYCLIA [id number] [address] [place] Hemoglobin (Bld) [Mass/Vol] 13.1 g/dL Normal 11.5-15.5 [facility] Comment on above: Order Comment: Speci men Type: BLOOD SPECIMENOrdering Facility: [facility] Address: [address] [place] [address] Performed By: #### 5 8410-2 ####CERV[facility] LABORATORYCLIA [id number] [address] [place] MCH (RBC) [Entitic mass] 30.7 pg Normal 26.0-34.0 [facility] Comment on above: Order Comment: Speci men Type: BLOOD SPECIMENOrdering Facility: [facility] Address: [address] [place] [address] Performed By: #### 5 8410-2 ####CERV[facility] LABORATORYCLIA [id number] [address] [place] MCHC (RBC) [Mass/Vol] 33.8 g/dL Normal 30.5-36.0 [facility] Comment on above: Order Comment: Speci men Type: BLOOD SPECIMENOrdering Facility: [facility] Address: [address] [place] [address] Performed By: #### 5 8410-2 ####CERV[facility] LABORATORYCLIA [id number] [address] [place] MCV (RBC) [Entitic vol] 90.9 fL Normal 80.0-100.0 [facility] Comment on above: Order Comment: Speci men Type: BLOOD SPECIMENOrdering Facility: [facility] Address: [address] [place] [address] Performed By: #### 5 8410-2 ####CERV[facility] LABORATORYCLIA [id number] [address] [place] Nucleated RBC (Bld) [#/Vol] 10*3/uL Normal <0.01 [facility] Comment on above: Order Comment: Speci men Type: BLOOD SPECIMENOrdering Facility: [facility] Address: [address] [place] [address] Performed By: #### 5 8410-2 ####CERV[facility] LABORATORYCLIA [id number] [address] [place] Platelet mean volume (Bld) [Entitic vol] 10.2 fL Normal 9.0-12.7 [facility] Comment on above: Order Comment: Speci men Type: BLOOD SPECIMENOrdering Facility: [facility] Address: [address] [place] [address] Performed By: #### 5 8410-2 ####CERV[facility] LABORATORYCLIA [id number] [address] [place] Platelets (Bld) [#/Vol] 200 10*3/uL Normal 150-400 [facility] Comment on above: Order Comment: Speci men Type: BLOOD SPECIMENOrdering Facility: [facility] Address: [address] [place] [address] Performed By: #### 5 8410-2 ####CERV[facility] LABORATORYCLIA [id number] [place] [address] [place] RBC (Bld) [#/Vol] 4.27 10*6/uL Normal 3.90-5.20 [facility] Comment on above: Order Comment: Speci men Type: BLOOD SPECIMENOrdering Facility: [facility] Address: [address] [place] [address] Performed By: #### 5 8410-2 ####CERV[facility] LABORATORYCLIA [id number] [place] [address] [place] WBC (Bld) [#/Vol] 10.28 10*3/uL Normal 3.70-11.00 [facility] Comment on above: Order Comment: Speci men Type: BLOOD SPECIMENOrdering Facility: [facility] Address: [address] [place] [address] Performed By: #### 5 8410-2 ####[facility] LABORATORYCLIA [id number] [place] [address] [facility] [place] Comprehensive metabolic 2000 panelon 09-25-2024 Albumin [Mass/Vol] 3.0 g/dL Low 3.9-4.9 [facility] Comment on above: Order Comment: Speci men Type: BLOOD SPECIMENOrdering Facility: [facility] Address: [address] [place] [address] Performed By: #### 1 9123-9, 11088-3 ####[facility] LABORATORYCLIA [id number] [address] [place] ALP [Catalytic activity/Vol] 41 U/L Normal 34-123 [facility] Comment on above: Order Comment: Speci men Type: BLOOD SPECIMENOrdering Facility: [facility] Address: [address] [place] [address] Performed By: #### 1 9123-9, 98540-8 ####[facility] LABORATORYCLIA [id number] [address] [place] ALT [Catalytic activity/Vol] 11 U/L Normal 7-38 [facility] Comment on above: Order Comment: Speci men Type: BLOOD SPECIMENOrdering Facility: [facility] Address: [address] [place] [address] Performed By: #### 1 9123-9, 52686-5 ####CERVANT[facility] LABORATORYCLIA [id number] [place] [address] [place] Anion gap [Moles/Vol] 11 mmol/L Normal 8-15 [facility] Comment on above: Order Comment: Speci men Type: BLOOD SPECIMENOrdering Facility: [facility] Address: [address] [place] [address] Performed By: #### 1 23-9, 71432-2 ####CERV[facility] LABORATORYCLIA [id number] [place] [address] [place] AST [Catalytic activity/Vol] 21 U/L Normal 13-35 [facility] Comment on above: Order Comment: Speci men Type: BLOOD SPECIMENOrdering Facility: [facility] Address: [address] [place] [address] Performed By: #### 1 239, ####CERVANTES LABORATORYCLIA [id number] [place] [address] [place] Bilirubin [Mass/Vol] 0.3 mg/dL Normal 0.2-1.3 [facility] Comment on above: Order Comment: Speci men Type: BLOOD SPECIMENOrdering Facility: [facility] Address: [address] [place] [address] Performed By: #### 1 239, 04422-2 ####CERV[facility] LABORATORYCLIA [id number] [place] [address] [place] Calcium [Mass/Vol] 9.0 mg/dL Normal 8.5-10.2 [facility] Comment on above: Order Comment: Speci men Type: BLOOD SPECIMENOrdering Facility: [facility] Address: [address] [place] [address] Performed By: #### 1 23-9, 56605-2 ####CERV[facility] LABORATORYCLIA [id number] [place] [address] [place] Chloride [Moles/Vol] 99 mmol/L Normal 98-107 [facility] Comment on above: Order Comment: Speci men Type: BLOOD SPECIMENOrdering Facility: [facility] Address: [address] [place] [address] Performed By: #### 1 23-9, 23208-5 ####CERV[facility] LABORATORYCLIA [id number] [place] [address] [place] CO2 [Moles/Vol] 24 mmol/L Normal 22-30 [facility] Comment on above: Order Comment: Speci men Type: BLOOD SPECIMENOrdering Facility: [facility] Address: [address] [place] [address] Performed By: #### 1 9123-9, 00204-4 ####[facility] LABORATORYCLIA [id number] [place] [address] [place] Creatinine [Mass/Vol] 0.66 mg/dL Normal 0.58-0.96 [facility] Comment on above: Order Comment: Suzanne garcia Type: BLOOD SPECIMENOrdering Facility: [facility] Address: [address] [place] [address] Performed By: #### 1 9123-9, 64902-1 ####CERV[facility] LABORATORYCLIA [id number] [address] Creatinine and Glomerular filtration rate.predicted panel (S/P/Bld) 93 mL/min/1.73m??? Normal >=60 [facility] Comment on above: Order Comment: Suzanne radha Type: BLOOD SPECIMENOrdering Facility: [facility] Address: [address] [place] [address] Result Comment: Winifred mated Glomerular Filtration Rate [...] actual GFR. Performed By: #### 1 9123-9, 53540-1 ####[facility] LABORATORYCLIA [id number] [place] [id number] [place] Glucose [Mass/Vol] 202 mg/dL High 74-99 [facility] Comment on above: Order Comment: Suzanne garcia Type: BLOOD SPECIMENOrdering Facility: [facility] Address: [address] [place] [address] Result Comment: The [place] [employer] (ADA) provides guidance for cutoff [...] Standards of Medical Care in Diabetes 2016, [place] [employer]. Diabetes Care. 2016.39(Suppl 1). Performed By: #### 1 9123-9, 99733-8 ####CERVANTES LABORATORYCLIA [id number] [place] [address] [place] Potassium [Moles/Vol] 4.4 mmol/L Normal 3.7-5.1 [facility] Comment on above: Order Comment: Suzanne garcia Type: BLOOD SPECIMENOrdering Facility: [facility] Address: [address] [place] [address] Performed By: #### 1 9123-9, 26029-1 ####CERVANT[facility] LABORATORYCLIA [id number] [place] [address] [place] Protein [Mass/Vol] 6.0 g/dL Low 6.3-8.0 [facility] Comment on above: Order Comment: Suzanne garcia Type: BLOOD SPECIMENOrdering Facility: [facility] Address: [address] [place] [address] Performed By: #### 1 9123-9, 45412-8 ####CERVANTES LABORATORYCLIA [id number] [place] [address] [place] Sodium [Moles/Vol] 134 mmol/L Low 136-144 [facility] Comment on above: Order Comment: Suzanne garcia Type: BLOOD SPECIMENOrdering Facility: [facility] Address: [address] [place] [address] Performed By: #### 1 23-9, 00113-2 ####CERVANT[facility] LABORATORYCLIA [id number] [place] [address] [place] Urea nitrogen [Mass/Vol] 14 mg/dL Normal 7-21 [facility] Comment on above: Order Comment: Suzanne garcia Type: BLOOD SPECIMENOrdering Facility: [facility] Address: [address] [place] [address] Performed By: #### 1 9123-9, 02680-8 ####[facility] LABORATORYCLIA [id number] [place] [address] [place] Magnesium SerPl-mCncon 09-25 Magnesium [Mass/Vol] 1.5 mg/dL Low 1.7-2.3 [facility] Comment on above: Order Comment: Suzanne garcia Type: BLOOD SPECIMENOrdering Facility: [facility] Address: [address] [place], [place] [address] [address] Performed By: #### 1 9123-9, 49205-0 ####[facility] LABORATORYCLIA [id number] [place] [id number] [place] PT panel Coag (PPP)on 2024 INR Coag (PPP) [Relative time] 4.2 {INR} High 0.9-1.3 [facility] Comment on above: Order Comment: Suzanne garcia Type: BLOOD SPECIMENOrdering Facility: [facility] Address: [address] [place] [address] [place] [address] Result Comment: Kaycee min K Antagonist (VKA) Therapeutic Range: INR 2 to 3 (Target INR of 2.5) Note: For patients treated with VKA drugs, such as warfarin, the [place] [employer] 2012 Guideline recommends [...] Chest 2012, 141:7S-47S Roshni CASTILLO et al. [facility] 2017, 70: 252-289 Performed By: #### 3 4528-0 ####[facility] LABORATORYCLIA [id number] [place] [address] [place] PT Coag (PPP) [Time] 41.3 s High 9.7-13.0 [facility] Comment on above: Order Comment: Suzanne garcia Type: BLOOD SPECIMENOrdering Facility: [facility] Address: [facility] [place] [id number] Performed By: #### 3 4528-0 ####[facility] LABORATORYCLIA [id number] [place] [address] [facility] CONSULT PROGon 09-23-2024 CONSULT PROG HNO ID: [id number] Author: PIPE FREEMAN RPh Service: Pharmacy Author [...] Freeman RPh DATE/TIME: 09/23/2024 12:07 PM Normal [facility] PT panel Coag (PPP)on 2024 INR Coag (PPP) [Relative time] 2.9 {INR} High 0.9-1.3 [facility] Comment on above: Order Comment: Suzanne garcia Type: BLOOD SPECIMENOrdering Facility: [facility] Address: [place] [id number] Result Comment: Kaycee min K Antagonist (VKA) Therapeutic Range: INR 2 to 3 (Target INR of 2.5) Note: For patients treated with VKA drugs, such as warfarin, the [place] [employer] 2012 Guideline recommends [...] Chest 2012, 141:7S-47S Roshni CASTILLO et ezio. [facility] 2017, 70: 252-289 Performed By: #### 3 4528-0 ####[facility] LABORATORYCLIA [id number] [place] [address] [place] PT Coag (PPP) [Time] 29.1 s High 9.7-13.0 [facility] Comment on above: Order Comment: Suzanne garcia Type: BLOOD SPECIMENOrdering Facility: [facility] Address: [address] [place] [address] Performed By: #### 3 4528-0 ####[facility] LABORATORYCLIA [id number] [address] OF [facility] PT panel Coag (PPP)on 2024 INR Coag (PPP) [Relative time] 2.8 {INR} High 0.9-1.3 [facility] Comment on above: Order Comment: Suzanne garcia Type: BLOOD SPECIMENOrdering Facility: [facility] Address: [address] [place] [address] Result Comment: Kaycee min K Antagonist (VKA) Therapeutic Range: INR 2 to 3 (Target INR of 2.5) Note: For patients treated with VKA drugs, such as warfarin, the [place] [employer]icians 2012 Guideline recommends [...] Chest 2012, 141:7S-47S Roshni CASTILLO et al. [facility] 2017, 70: 252-289 Performed By: #### 3 4528-0 ####[facility]ST[facility] LABORATORYCLIA [id number] [place] [address] [facility] [place] PT Coag (PPP) [Time] 27.8 s High 9.7-13.0 [facility] Comment on above: Order Comment: Speci men Type: BLOOD SPECIMENOrdering Facility: [facility] Address: [facility] [place] [address] Performed By: #### 3 4528-0 ####[facility] LABORATORYCLIA [id number] [place] [address] [facility] [place] THERAPY NTon 09-22-2024 THERAPY NT HNO ID: [id number] Author: ESTELLE CAGE PT Service: Physical Therapy Author Type: Asphalt Tamper Type: Therapy (PT/OT/Speech/Resp) Filed: 09/22/2024 17:13 Note Text: Attestation signed by Estelle Cage PT at 09/22/2024 5:13 PM I reviewed and agree with the documentation corresponding to this therapy visit. SIGNATURE: Estelle Cage PT DATE: September 22, 2024 TIME: 5:13 PM Summary: PT Treat Physical Therapy Treatment Summary SERVICE DATE: 09/22/2024 SERVICE TIME: 1408 to 1439 ROOM: [id number]-[id number]- PT 6 Clicks Score: 12 DISCHARGE RECOMMENDATIONS [...] is struggling to ambulate. Patient admitted to [facility] with Dx: Decreased activities of daily living (ADL), Fall at home, initial encounter Relevant Past Medical History: DM, edema, depression,asthma, obesity, irsutism, venous insufficiency, oseteomyeliitis of foot, SLE, cerebral palsy, pulmonary embolism, hypothyroidism, insomnai, CAD, migraines, HTN, hysterectomy HOME LIVING Patient Lives With: Facility Care, Spouse, Other: See Comment Comments: LONG TERM with spouse Assistance Available: 24-Hour Comments: LONG TERM staff for toileting and shower Entry To Home: No Stairs Number Of Stairs To Bed/Bath: 0 Tub/Shower Type: Accessible WIS with shower chair + grab bars, has assistance/supervision for transfers Laundry: LONG TERM staff completes Equipment Owned: Lift Chair, Commode- [...] DIAGNOSIS Reduced mobility-other TREATMENT INTERVENTIONS Therapeutic Activity (49919) Timed Code Treatment (minutes): 31 Skilled Treatment Time (minutes): 31 Therapeutic Activity (96859) Treatment Minutes: 31 $ Therapeutic Activity (72360) Billed Units: 2 units TRAINING AND EDUCATION [...] In (more content not included)... [facility] THERAPY NT HNO ID: [id number] Author: CHRISTIANO MAYEN OT/Abiodun Service: ? Author Type: Occupational Therapist Type: Therapy (PT/OT/Speech/Resp) Filed: 09/22/2024 09:46 Note Text: Summary: OT Treatment Occupational Therapy Treatment Summary SERVICE DATE: 09/22/2024 SERVICE TIME: 857 to 939 ROOM: KD-[id number] OT 6 Clicks Score: 14 DISCHARGE RECOMMENDATIONS [...] is struggling to ambulate. Patient admitted to [facility] with Dx: Decreased activities of daily living (ADL), Fall at home, initial encounter Relevant Past Medical History: DM, edema, depression,asthma, obesity, irsutism, venous insufficiency, oseteomyeliitis of foot, SLE, cerebral palsy, pulmonary embolism, hypothyroidism, insomnai, CAD, migraines, HTN, hysterectomy HOME LIVING Patient Lives With: Facility Care, Spouse, Other: See Comment Comments: LONG TERM with spouse Assistance Available: 24-Hour Comments: LONG TERM staff for toileting and shower Entry To Home: No Stairs Number Of Stairs To Bed/Bath: 0 Tub/Shower Type: Accessible WIS with shower chair + grab bars, has assistance/supervision for transfers Laundry: LONG TERM staff completes Equipment Owned: Lift Chair, Commode- [...] (generalized), Unsteadiness on feet TREATMENT INTERVENTIONS Self Senior Living Management (13470), Therapeutic Activity (69211) Timed Code Treatment (minutes): 40 Skilled Treatment Time (minutes): 40 TRAINING AND EDUCATION PROVIDED Activity Adaptation/Compensatory Strategies, Adaptive Equipment/DME, Bed Mobility, Benefits of In-Hospital Mobility, Cognitive Skills, Command Following, Discharge Planning, Expected Functional Level, Functional Mobility Involving ADLs, Grooming Tasks, Fine Motor Coordination, Insight into Deficits, Lower Extremity Dressing, Feeding Tasks, Memory/Attention, Orientation, Positioning, Role of Occupational Therapy, Safety/Judgment, Sitting Balance to Improve [place] with ADLs/Self-Care, Standing Balance to Improve [place] with ADLs/Self-Care, Transfer - Sit to Stand, Upper Extremity Bathing THERAPEUTIC SKILLS USED Activity Dosing, Cues for Sequencing/Proper Technique for Activity, Cuing Tactile, Cuing Verbal, Cuing Visual, Facilitation of Joint Range of Motion, Movement Facilitation, Muscle Activation Facilitation, Physical Assist, Task Analysis Learning, Teach-Back fo (more content not included)... Normal [facility] CBC panel Auto (Bld)on 09-21 Erythrocyte distribution width (RBC) [Ratio] 13.2 % Normal 11.5-15.0 [facility] Comment on above: Order Comment: Speci men Type: BLOOD SPECIMENOrdering Facility: [facility] Address: [address] [place] [address] Performed By: #### 5 8410-2 ####[facility] LABORATORYCLIA [id number] [address] OF [facility] Hematocrit (Bld) [Volume fraction] 33.6 % Low 36.0-46.0 [facility] Comment on above: Order Comment: Speci men Type: BLOOD SPECIMENOrdering Facility: [facility] Address: [address] [place] [address] Performed By: #### 5 8410-2 ####CERVANT[facility] LABORATORYCLIA [id number] [address] OF [facility] Hemoglobin (Bld) [Mass/Vol] 11.4 g/dL Low 11.5-15.5 [facility] Comment on above: Order Comment: Speci men Type: BLOOD SPECIMENOrdering Facility: [facility] Address: [address] [place] [address] Performed By: #### 5 8410-2 ####CERVANTES LABORATORYCLIA [id number] [address] [place] [facility] MCH (RBC) [Entitic mass] 30.8 pg Normal 26.0-34.0 [facility] Comment on above: Order Comment: Speci men Type: BLOOD SPECIMENOrdering Facility: [facility] Address: [address] [place] [address] Performed By: #### 5 8410-2 ####CERVANTES LABORATORYCLIA [id number] [address] MCHC (RBC) [Mass/Vol] 33.9 g/dL Normal 30.5-36.0 [facility] Comment on above: Order Comment: Speci men Type: BLOOD SPECIMENOrdering Facility: [facility] Address: [address] [place] [address] Performed By: #### 5 8410-2 ####CERVANTES LABORATORYCLIA [id number] [address] [place] MCV (RBC) [Entitic vol] 90.8 fL Normal 80.0-100.0 [facility] Comment on above: Order Comment: Speci men Type: BLOOD SPECIMENOrdering Facility: [facility] Address: [address] [place] [address] Performed By: #### 5 8410-2 ####CERVANTES LABORATORYCLIA [id number] [address] OF [place] Nucleated RBC (Bld) [#/Vol] 10*3/uL Normal <0.01 [facility] Comment on above: Order Comment: Speci men Type: BLOOD SPECIMENOrdering Facility: [facility] Address: [address] [place] [address] Performed By: #### 5 8410-2 ####CERVANTES LABORATORYCLIA [id number] [address] [place] Platelet mean volume (Bld) [Entitic vol] 10.2 fL Normal 9.0-12.7 [facility] Comment on above: Order Comment: Speci men Type: BLOOD SPECIMENOrdering Facility: [facility] Address: [address] [place] [address] Performed By: #### 5 8410-2 ####CERVANTES LABORATORYCLIA [id number] [address] [place] Platelets (Bld) [#/Vol] 177 10*3/uL Normal 150-400 [facility] Comment on above: Order Comment: Speci men Type: BLOOD SPECIMENOrdering Facility: [facility] Address: [address] [place] [address] Performed By: #### 5 8410-2 ####CERVANTES LABORATORYCLIA [id number] [address] [place] RBC (Bld) [#/Vol] 3.70 10*6/uL Low 3.90-5.20 [facility] Comment on above: Order Comment: Speci men Type: BLOOD SPECIMENOrdering Facility: [facility] Address: [address] [place] [address] Performed By: #### 5 8410-2 ####CERVANTES LABORATORYCLIA [id number] [address] WBC (Bld) [#/Vol] 5.94 10*3/uL Normal 3.70-11.00 [facility] Comment on above: Order Comment: Speci men Type: BLOOD SPECIMENOrdering Facility: [facility] Address: [address] [place] [address] Performed By: #### 5 8410-2 ####CERVANTES LABORATORYCLIA [id number] [address] Comprehensive metabolic 2000 panelon 09-21-2024 Albumin [Mass/Vol] 2.8 g/dL Low 3.9-4.9 [facility] Comment on above: Order Comment: Speci men Type: BLOOD SPECIMENOrdering Facility: [facility] Address: [address] [place] [address] Performed By: #### 1 9123-9, 85535-0 ####CERVANTES LABORATORYCLIA [id number] [address] ALP [Catalytic activity/Vol] 33 U/L Low 34-123 [facility] Comment on above: Order Comment: Speci men Type: BLOOD SPECIMENOrdering Facility: [facility] Address: [address] [place] [address] Performed By: #### 1 9123-9, 76308-8 ####CERVANTES LABORATORYCLIA [id number] [address] ALT [Catalytic activity/Vol] 7 U/L Normal 7-38 [facility] Comment on above: Order Comment: Speci men Type: BLOOD SPECIMENOrdering Facility: [facility] Address: [address] [place] [address] Performed By: #### 1 9123-9, 47257-2 ####CERVANTES LABORATORYCLIA [id number] [address] [place] Anion gap [Moles/Vol] 8 mmol/L Normal 8-15 [facility] Comment on above: Order Comment: Speci men Type: BLOOD SPECIMENOrdering Facility: [facility] Address: [address] [facility] [place] [place] [address] Performed By: #### 1 23-9, 43791-2 ####CERVANTES LABORATORYCLIA [id number] [place] [address] [place] AST [Catalytic activity/Vol] 18 U/L Normal 13-35 [facility] Comment on above: Order Comment: Speci men Type: BLOOD SPECIMENOrdering Facility: [facility] Address: [address] [place] [address] Performed By: #### 1 9, ####CERVANTES LABORATORYCLIA [id number] [place] [address] [place] Bilirubin [Mass/Vol] 0.2 mg/dL Normal 0.2-1.3 [facility] Comment on above: Order Comment: Speci men Type: BLOOD SPECIMENOrdering Facility: [facility] Address: [address] [place] [address] Performed By: #### 1 23-9, 47072-0 ####CERVANTES LABORATORYCLIA [id number] [place] [address] [place] Calcium [Mass/Vol] 8.4 mg/dL Low 8.5-10.2 [facility] Comment on above: Order Comment: Speci men Type: BLOOD SPECIMENOrdering Facility: [facility] Address: [address] [place] [address] Performed By: #### 1 23-9, ####CERVANTES LABORATORYCLIA [id number] [place] [address] [place] Chloride [Moles/Vol] 103 mmol/L Normal 98-107 [facility] Comment on above: Order Comment: Speci men Type: BLOOD SPECIMENOrdering Facility: [facility] Address: [address] [place] [address] Performed By: #### 1 23-9, 32383-9 ####CERVANTES LABORATORYCLIA [id number] [place] [address] [place] CO2 [Moles/Vol] 27 mmol/L Normal 22-30 [facility] Comment on above: Order Comment: Suzanne garcia Type: BLOOD SPECIMENOrdering Facility: [facility] Address: [address] [place] [address] Performed By: #### 1 9123-9, 97890-3 ####CERVANTES LABORATORYCLIA [id number] [place] [address] [place] Creatinine [Mass/Vol] 0.79 mg/dL Normal 0.58-0.96 [facility] Comment on above: Order Comment: Suzanne garcia Type: BLOOD SPECIMENOrdering Facility: [facility] Address: [address] [place] [address] Performed By: #### 1 9123-9, 60399-2 ####CERVANTES LABORATORYCLIA [id number] [address] Creatinine and Glomerular filtration rate.predicted panel (S/P/Bld) 79 mL/min/1.73m??? Normal >=60 [facility] Comment on above: Order Comment: Suzanne garcai Type: BLOOD SPECIMENOrdering Facility: [facility] Address: [address] [place] [address] Result Comment: Winifred mated Glomerular Filtration Rate [...] actual GFR. Performed By: #### 1 9123-9, 05146-8 ####CERVANTES LABORATORYCLIA [id number] [address] [place] Glucose [Mass/Vol] 115 mg/dL High 74-99 [facility] Comment on above: Order Comment: Suzanne radha Type: BLOOD SPECIMENOrdering Facility: [facility] Address: [address] [place] [address] Result Comment: The [place] [employer] Association (ADA) provides guidance for cutoff [...] Standards of Medical Care in Diabetes 2016, [place] [employer]. Diabetes Care. 2016.39(Suppl 1). Performed By: #### 1 23-9, ####CERVANTES LABORATORYCLIA [id number] [place] [address] [place] Potassium [Moles/Vol] 4.8 mmol/L Normal 3.7-5.1 [facility] Comment on above: Order Comment: Suzanne garcia Type: BLOOD SPECIMENOrdering Facility: [facility] Address: [address] [place] [address] Performed By: #### 1 239, ####CERVANTES LABORATORYCLIA [id number] [place] [address] [place] Protein [Mass/Vol] 5.6 g/dL Low 6.3-8.0 [facility] Comment on above: Order Comment: Suzanne garcia Type: BLOOD SPECIMENOrdering Facility: [facility] Address: [address] [place] [address] Performed By: #### 1 239, ####CERVANTES LABORATORYCLIA [id number] [place] [id number] [place] Sodium [Moles/Vol] 138 mmol/L Normal 136-144 [facility] Comment on above: Order Comment: Suzanne garcia Type: BLOOD SPECIMENOrdering Facility: [facility] Address: [facility] [place] [place] [address] Performed By: #### 1 239, ####CERVANTES LABORATORYCLIA [id number] [place] [address] [place] Urea nitrogen [Mass/Vol] 16 mg/dL Normal 7-21 [facility] Comment on above: Order Comment: Suzanne garcia Type: BLOOD SPECIMENOrdering Facility: [facility] Address: [facility] [place] [id number] Performed By: #### 1 9123-9, 03120-2 ####[facility] LABORATORYCLIA [id number] [place] [address] [place] Magnesium SerPl-mCncon 09-21 Magnesium [Mass/Vol] 1.9 mg/dL Normal 1.7-2.3 [facility] Comment on above: Order Comment: Speccandelaria garcia Type: BLOOD SPECIMENOrdering Facility: [facility] Address: [address] [place], [place] [address] [address] Performed By: #### 1 9123-9, 27335-6 ####[facility] LABORATORYCLIA [id number] [place] [address] [place] PT panel Coag (PPP)on 2024 INR Coag (PPP) [Relative time] 2.5 {INR} High 0.9-1.3 [facility] Comment on above: Order Comment: Suzanne garcia Type: BLOOD SPECIMENOrdering Facility: [facility] Address: [address] [place] [address] Result Comment: Kaycee min K Antagonist (VKA) Therapeutic Range: INR 2 to 3 (Target INR of 2.5) Note: For patients treated with VKA drugs, such as warfarin, the [place] [employer] 2012 Guideline recommends [...] Performed By: #### 3 4528-0 ####CERVANTES LABORATORYCLIA [id number] [address] [place] PT Coag (PPP) [Time] 25.1 s High 9.7-13.0 [facility] Comment on above: Order Comment: Speci men Type: BLOOD SPECIMENOrdering Facility: [facility] Address: [address] [place] [address] Performed By: #### 3 4528-0 ####CERVANTES LABORATORYCLIA [id number] [address] CBC panel Auto (Bld)on 09-20 Erythrocyte distribution width (RBC) [Ratio] 13.2 % Normal 11.5-15.0 [facility] Comment on above: Order Comment: Speci men Type: BLOOD SPECIMENOrdering Facility: [facility] Address: [address] [place] [address] Performed By: #### 5 8410-2 ####CERVANT[facility] LABORATORYCLIA [id number] [address] Hematocrit (Bld) [Volume fraction] 36.8 % Normal 36.0-46.0 [facility] Comment on above: Order Comment: Speci men Type: BLOOD SPECIMENOrdering Facility: [facility] Address: [address] [place] [address] Performed By: #### 5 8410-2 ####CERVANTES LABORATORYCLIA [id number] [address] [place] Hemoglobin (Bld) [Mass/Vol] 12.4 g/dL Normal 11.5-15.5 [facility] Comment on above: Order Comment: Speci men Type: BLOOD SPECIMENOrdering Facility: [facility] Address: [address] [place] [address] Performed By: #### 5 8410-2 ####CERVANT[facility] LABORATORYCLIA [id number] [address] MCH (RBC) [Entitic mass] 30.8 pg Normal 26.0-34.0 [facility] Comment on above: Order Comment: Speci men Type: BLOOD SPECIMENOrdering Facility: [facility] Address: [address] [place] [address] Performed By: #### 5 8410-2 ####CERVANTES LABORATORYCLIA [id number] [address] MCHC (RBC) [Mass/Vol] 33.7 g/dL Normal 30.5-36.0 [facility] Comment on above: Order Comment: Speci men Type: BLOOD SPECIMENOrdering Facility: [facility] Address: [address] [place] [address] Performed By: #### 5 8410-2 ####CERVANTES LABORATORYCLIA [id number] [address] MCV (RBC) [Entitic vol] 91.5 fL Normal 80.0-100.0 [facility] Comment on above: Order Comment: Speci men Type: BLOOD SPECIMENOrdering Facility: [facility] Address: [address] [place] [address] Performed By: #### 5 8410-2 ####CERVANTES LABORATORYCLIA [id number] [address] Nucleated RBC (Bld) [#/Vol] 10*3/uL Normal <0.01 [facility] Comment on above: Order Comment: Speci men Type: BLOOD SPECIMENOrdering Facility: [facility] Address: [address] [place] [address] Performed By: #### 5 8410-2 ####CERVANTES LABORATORYCLIA [id number] [address] Platelet mean volume (Bld) [Entitic vol] 10.2 fL Normal 9.0-12.7 [facility] Comment on above: Order Comment: Speci men Type: BLOOD SPECIMENOrdering Facility: [facility] Address: [address] [place] [address] Performed By: #### 5 8410-2 ####CERVANTES LABORATORYCLIA [id number] [address] Platelets (Bld) [#/Vol] 175 10*3/uL Normal 150-400 [facility] Comment on above: Order Comment: Speci men Type: BLOOD SPECIMENOrdering Facility: [facility] Address: [address] [place] [address] Performed By: #### 5 8410-2 ####CERVANT[facility] LABORATORYCLIA [id number] [address] RBC (Bld) [#/Vol] 4.02 10*6/uL Normal 3.90-5.20 [facility] Comment on above: Order Comment: Speci men Type: BLOOD SPECIMENOrdering Facility: [facility] Address: [address] [place] [address] Performed By: #### 5 8410-2 ####CERVANT[facility] LABORATORYCLIA [id number] [address] WBC (Bld) [#/Vol] 5.70 10*3/uL Normal 3.70-11.00 [facility] Comment on above: Order Comment: Speci men Type: BLOOD SPECIMENOrdering Facility: [facility] Address: [address] [place] [address] Performed By: #### 5 8410-2 ####CERVANT[facility] LABORATORYCLIA [id number] [address] Comprehensive metabolic 2000 panelon 09-20-2024 Albumin [Mass/Vol] 3.1 g/dL Low 3.9-4.9 [facility] Comment on above: Order Comment: Speci men Type: BLOOD SPECIMENOrdering Facility: [facility] Address: [address] [place] [address] Performed By: #### 2 4323-8, ####CERV[facility] LABORATORYCLIA [id number] [address] ALP [Catalytic activity/Vol] 41 U/L Normal 34-123 [facility] Comment on above: Order Comment: Speci men Type: BLOOD SPECIMENOrdering Facility: [facility] Address: [address] [place] [address] Performed By: #### 2 4323-8, ####CERVANTES LABORATORYCLIA [id number] [place] [address] [place] ALT [Catalytic activity/Vol] 7 U/L Normal 7-38 [facility] Comment on above: Order Comment: Speci men Type: BLOOD SPECIMENOrdering Facility: [facility] Address: [address] [place] [address] Performed By: #### 2 4323-8, ####CERVANTES LABORATORYCLIA [id number] [place] [address] [place] Anion gap [Moles/Vol] 7 mmol/L Low 8-15 [facility] Comment on above: Order Comment: Speci men Type: BLOOD SPECIMENOrdering Facility: [facility] Address: [address] [place] [address] Performed By: #### 2 4322-8, ####CERVANTES LABORATORYCLIA [id number] [address] [place] AST [Catalytic activity/Vol] 16 U/L Normal 13-35 [facility] Comment on above: Order Comment: Speci men Type: BLOOD SPECIMENOrdering Facility: [facility] Address: [address] [place] [address] Performed By: #### 2 4322-8, ####CERVANTES LABORATORYCLIA [id number] [place] [address] [place] Bilirubin [Mass/Vol] 0.4 mg/dL Normal 0.2-1.3 [facility] Comment on above: Order Comment: Speci men Type: BLOOD SPECIMENOrdering Facility: [facility] Address: [address] [facility] [place] [place] [address] Performed By: #### 2 432-8, ####CERVANTES LABORATORYCLIA [id number] [place] [address] [place] Calcium [Mass/Vol] 8.9 mg/dL Normal 8.5-10.2 [facility] Comment on above: Order Comment: Speci men Type: BLOOD SPECIMENOrdering Facility: [facility] Address: [address] [place] [address] Performed By: #### 2 4322-, ####CERVANTES LABORATORYCLIA [id number] [place] [address] [place] Chloride [Moles/Vol] 102 mmol/L Normal 98-107 [facility] Comment on above: Order Comment: Suzanne garcia Type: BLOOD SPECIMENOrdering Facility: [facility] Address: [address] [place] [address] Performed By: #### 2 4323-8, ####CERVANTES LABORATORYCLIA [id number] [place] [id number] [place] CO2 [Moles/Vol] 29 mmol/L Normal 22-30 [facility] Comment on above: Order Comment: Suzanne garcia Type: BLOOD SPECIMENOrdering Facility: [facility] Address: [address] [place] [address] Performed By: #### 2 4323-8, ####CERVANTES LABORATORYCLIA [id number] [place] [address] [place] Creatinine [Mass/Vol] 0.82 mg/dL Normal 0.58-0.96 [facility] Comment on above: Order Comment: Suzanne garcia Type: BLOOD SPECIMENOrdering Facility: [facility] Address: [address] [place] [address] Performed By: #### 2 4323-8, ####CERVANTES LABORATORYCLIA [id number] [address] Creatinine and Glomerular filtration rate.predicted panel (S/P/Bld) 76 mL/min/1.73m??? Normal >=60 [facility] Comment on above: Order Comment: Suzanne garcia Type: BLOOD SPECIMENOrdering Facility: [facility] Address: [address] [place] [address] Result Comment: Winifred mated Glomerular Filtration Rate [...] actual GFR. Performed By: #### 2 432-8, ####[facility] LABORATORYCLIA [id number] [place] [address] [place] Glucose [Mass/Vol] 134 mg/dL High 74-99 [facility] Comment on above: Order Comment: Suzanne garcia Type: BLOOD SPECIMENOrdering Facility: [facility] Address: [address] [place] [address] Result Comment: The [place] Diabetes [employer] (ADA) provides guidance for cutoff [...] Standards of Medical Care in Diabetes 2016, [place] [employer]. Diabetes Care. 2016.39(Suppl 1). Performed By: #### 2 4328, ####[facility] LABORATORYCLIA [id number] [place] [address] [place] Potassium [Moles/Vol] 4.7 mmol/L Normal 3.7-5.1 [facility] Comment on above: Order Comment: Suzanne garcia Type: BLOOD SPECIMENOrdering Facility: [facility] Address: [address] [place] [address] Performed By: #### 2 43208-27, ####[facility] LABORATORYCLIA [id number] [place] [address] [place] Protein [Mass/Vol] 5.9 g/dL Low 6.3-8.0 [facility] Comment on above: Order Comment: Suzanne garcia Type: BLOOD SPECIMENOrdering Facility: [facility] Address: [address] [place], [place] [address] Performed By: #### 2 4323-8, ####[facility] LABORATORYCLIA [id number] [address] [facility] Sodium [Moles/Vol] 138 mmol/L Normal 136-144 [facility] Comment on above: Order Comment: Suzanne garcia Type: BLOOD SPECIMENOrdering Facility: [facility] Address: [facility] [place] [address] Performed By: #### 2 4323-8, ####CERVANTES LABORATORYCLIA [id number] [address] [place] [facility] Urea nitrogen [Mass/Vol] 11 mg/dL Normal 7-21 [facility] Comment on above: Order Comment: Suzanne garcia Type: BLOOD SPECIMENOrdering Facility: [facility] Address: [address] [place] [address] Performed By: #### 2 4323-8, ####CERV[facility] LABORATORYCLIA [id number] [address] [place] Magnesium SerPl-mCncon 09-20 Magnesium [Mass/Vol] 1.9 mg/dL Normal 1.7-2.3 [facility] Comment on above: Order Comment: Suzanne garcia Type: BLOOD SPECIMENOrdering Facility: [facility] Address: [address] [place] [address] Performed By: #### 2 4323-8, ####CERVANT[facility] LABORATORYCLIA [id number] [address] [place] PT panel Coag (PPP)on 2024 INR Coag (PPP) [Relative time] 1.6 {INR} High 0.9-1.3 [facility] Comment on above: Order Comment: Suzanne garcia Type: BLOOD SPECIMENOrdering Facility: [facility] Address: [address] [place] [place] [address] Result Comment: Kaycee min K Antagonist (VKA) Therapeutic Range: INR 2 to 3 (Target INR of 2.5) Note: For patients treated with VKA drugs, such as warfarin, the [place] [employer] 2012 Guideline recommends [...] Chest 2012, 141:7S-47S Roshni RA, et al. [facility] 2017, 70: 252-289 Performed By: #### 3 4528-0 ####[facility] LABORATORYCLIA [id number] [place] [id number] [place] PT Coag (PPP) [Time] 16.7 s High 9.7-13.0 [facility] Comment on above: Order Comment: Speci men Type: BLOOD SPECIMENOrdering Facility: [facility] Address: [address] [place] [address] Performed By: #### 3 4528-0 ####[facility] LABORATORYCLIA [id number] [place] [id number] [place] THERAPY NTon 09-20-2024 THERAPY NT HNO ID: [id number] Author: CHRISTIANO MAYEN OT/L Service: ? Author Type: Occupational Therapist Type: Therapy (PT/OT/Speech/Resp) Filed: 09/20/2024 11:14 Note Text: Summary: OT Evaluation Occupational Therapy Evaluation Summary SERVICE DATE: 09/20/2024 SERVICE TIME: 1031 to 1106 ROOM: [place] [address] OT 6 Clicks Score: 14 DISCHARGE RECOMMENDATIONS [...] is struggling to ambulate. Patient admitted to [facility] with Dx: Decreased activities of daily living (ADL), Fall at home, initial encounter Relevant Past Medical History: DM, edema, depression,asthma, obesity, irsutism, venous insufficiency, oseteomyeliitis of foot, SLE, cerebral palsy, pulmonary embolism, hypothyroidism, insomnai, CAD, migraines, HTN, hysterectomy HOME LIVING Patient Lives With: Facility Care, Spouse, Other: See Comment Comments: LONG TERM with spouse Assistance Available: 24-Hour Comments: LONG TERM staff for toileting and shower Entry To Home: No Stairs Number Of Stairs To Bed/Bath: 0 Tub/Shower Type: Accessible WIS with shower chair + grab bars, has assistance/supervision for transfers Laundry: LONG TERM staff completes Equipment Owned: Lift Chair, Commode- [...] Unsteadiness on feet TREATMENT INTERVENTIONS Evaluation, Self Senior Living Management (39367) Timed Code Treatment (minutes): 17 Skilled Treatment Time (minutes): 32 TRAINING AND EDUCATION PROVIDED Activity Adaptation/Compensatory Strategies, Adaptive Equipment/DME, Bed Mobility, Benefits of In-Hospital Mobility, Cognitive Skills, Command Following, Coping Skills/Resiliency, Discharge Planning, Expected Functional Level, Functional Mobility Involving ADLs, Insight into Deficits, Lower Extremity Dressing, Memory/Attention, Orientation, Positioning, Pain Management, Safety/Judgment, Role of Occupational Therapy, Sitting Balance to Improve [place] with ADLs/Self-Care, Standing Balance to Improve [place] with ADLs/Self-Care, Toileting , Transfer - Sit to Stand THERAPEUTIC SKILLS USED Activity Dosing, Cues for Sequencing/Proper Technique for Activity, Cuing Tactile, Cuing Verbal, Cuing Visual, Facilitation of Joint Range of Motion, Movement Facilitation, Muscle Activation Facilitation, Physical Assist, Teach-Back for Ed (more content not included)... Normal [facility] CBC panel Auto (Bld)on 09-19 Erythrocyte distribution width (RBC) [Ratio] 13.2 % Normal 11.5-15.0 [facility] Comment on above: Order Comment: Speci men Type: BLOOD SPECIMENOrdering Facility: [facility] Address: [address] [place] [address] Performed By: #### 5 8410-2 ####[facility] LABORATORYCLIA [id number] [address] Hematocrit (Bld) [Volume fraction] 33.3 % Low 36.0-46.0 [facility] Comment on above: Order Comment: Speci men Type: BLOOD SPECIMENOrdering Facility: [facility] Address: [address] [place] [address] Performed By: #### 5 8410-2 ####[facility] LABORATORYCLIA [id number] [address] OF [facility] Hemoglobin (Bld) [Mass/Vol] 11.0 g/dL Low 11.5-15.5 [facility] Comment on above: Order Comment: Speci men Type: BLOOD SPECIMENOrdering Facility: [facility] Address: [address] [place] [address] Performed By: #### 5 8410-2 ####[facility] LABORATORYCLIA [id number] [address] MCH (RBC) [Entitic mass] 30.4 pg Normal 26.0-34.0 [facility] Comment on above: Order Comment: Speci men Type: BLOOD SPECIMENOrdering Facility: [facility] Address: [address] [place] [address] Performed By: #### 5 8410-2 ####[facility] LABORATORYCLIA [id number] [address] MCHC (RBC) [Mass/Vol] 33.0 g/dL Normal 30.5-36.0 [facility] Comment on above: Order Comment: Speci men Type: BLOOD SPECIMENOrdering Facility: [facility] Address: [address] [place] [address] Performed By: #### 5 8410-2 ####[facility] LABORATORYCLIA [id number] [address] MCV (RBC) [Entitic vol] 92.0 fL Normal 80.0-100.0 [facility] Comment on above: Order Comment: Speci men Type: BLOOD SPECIMENOrdering Facility: [facility] Address: [address] [place] [address] Performed By: #### 5 8410-2 ####CERV[facility] LABORATORYCLIA [id number] [place] [address] [place] Nucleated RBC (Bld) [#/Vol] 10*3/uL Normal <0.01 [facility] Comment on above: Order Comment: Speci men Type: BLOOD SPECIMENOrdering Facility: [facility] Address: [address] [place] [address] Performed By: #### 5 8410-2 ####CERV[facility] LABORATORYCLIA [id number] [place] [address] [place] Platelet mean volume (Bld) [Entitic vol] 10.2 fL Normal 9.0-12.7 [facility] Comment on above: Order Comment: Speci men Type: BLOOD SPECIMENOrdering Facility: [facility] Address: [address] [place] [address] Performed By: #### 5 8410-2 ####C[facility] LABORATORYCLIA [id number] [address] [place] Platelets (Bld) [#/Vol] 158 10*3/uL Normal 150-400 [facility] Comment on above: Order Comment: Speci men Type: BLOOD SPECIMENOrdering Facility: [facility] Address: [address] [place] [address] Performed By: #### 5 8410-2 ####CERV[facility] LABORATORYCLIA [id number] [address] [place] RBC (Bld) [#/Vol] 3.62 10*6/uL Low 3.90-5.20 [facility] Comment on above: Order Comment: Speci men Type: BLOOD SPECIMENOrdering Facility: [facility] Address: [address] [place] [address] Performed By: #### 5 8410-2 ####[facility] LABORATORYCLIA [id number] [address] [place] WBC (Bld) [#/Vol] 7.29 10*3/uL Normal 3.70-11.00 [facility] Comment on above: Order Comment: Speci men Type: BLOOD SPECIMENOrdering Facility: [facility] Address: [address] [place] [address] [place] [address] Performed By: #### 5 8410-2 ####CERV[facility] LABORATORYCLIA [id number] [place] [address] [place] Comprehensive metabolic 2000 panelon 09-19-2024 Albumin [Mass/Vol] 2.7 g/dL Low 3.9-4.9 [facility] Comment on above: Order Comment: Speci men Type: BLOOD SPECIMENOrdering Facility: [facility] Address: [address] [place] [address] Performed By: #### 2 4323-8, ####CERV[facility] LABORATORYCLIA [id number] [place] [address] [place] ALP [Catalytic activity/Vol] 36 U/L Normal 34-123 [facility] Comment on above: Order Comment: Speci men Type: BLOOD SPECIMENOrdering Facility: [facility] Address: [address] [place] [address] Performed By: #### 2 4323-8, ####CERV[facility] LABORATORYCLIA [id number] [place] [address] [place] ALT [Catalytic activity/Vol] 6 U/L Low 7-38 [facility] Comment on above: Order Comment: Speci men Type: BLOOD SPECIMENOrdering Facility: [facility] Address: [address] [place] [address] Performed By: #### 2 4323-8, ####CERV[facility] LABORATORYCLIA [id number] [place] [id number] [place] Anion gap [Moles/Vol] 13 mmol/L Normal 8-15 [facility] Comment on above: Order Comment: Speci men Type: BLOOD SPECIMENOrdering Facility: [facility] Address: [address] [place] [id number] Performed By: #### 2 4323-8, ####CERV[facility] LABORATORYCLIA [id number] [place] [id number] [place] AST [Catalytic activity/Vol] 19 U/L Normal 13-35 [facility] Comment on above: Order Comment: Speci men Type: BLOOD SPECIMENOrdering Facility: [facility] Address: [address] [place] [address] Performed By: #### 2 8, ####CERV[facility] LABORATORYCLIA [id number] [place] [address] [place] Bilirubin [Mass/Vol] 0.5 mg/dL Normal 0.2-1.3 [facility] Comment on above: Order Comment: Speci men Type: BLOOD SPECIMENOrdering Facility: [facility] Address: [address] [place] [address] Performed By: #### 2 8, ####CERV[facility] LABORATORYCLIA [id number] [place] [address] [place] Calcium [Mass/Vol] 8.6 mg/dL Normal 8.5-10.2 [facility] Comment on above: Order Comment: Speci men Type: BLOOD SPECIMENOrdering Facility: [facility] Address: [address] [place] [address] Performed By: #### 2 4323-01, ####CERV[facility] LABORATORYCLIA [id number] [place] [address] [place] Chloride [Moles/Vol] 103 mmol/L Normal 98-107 [facility] Comment on above: Order Comment: Speci men Type: BLOOD SPECIMENOrdering Facility: [facility] Address: [address] [place] [address] Performed By: #### 2 4323-01, ####[facility] LABORATORYCLIA [id number] [place] [address] [place] CO2 [Moles/Vol] 24 mmol/L Normal 22-30 [facility] Comment on above: Order Comment: Speci men Type: BLOOD SPECIMENOrdering Facility: [facility] Address: [address] [place] [address] [place] [address] Performed By: #### 2 4328, ####CERV[facility] LABORATORYCLIA [id number] [place] [address] [place] Creatinine [Mass/Vol] 0.76 mg/dL Normal 0.58-0.96 [facility] Comment on above: Order Comment: Naeemcandelaria garcia Type: BLOOD SPECIMENOrdering Facility: [facility] Address: [address] [place] [phone] Performed By: #### 2 4323-8, ####CERV[facility] LABORATORYCLIA [id number] [place] [id number] [place] Creatinine and Glomerular filtration rate.predicted panel (S/P/Bld) 83 mL/min/1.73m??? Normal >=60 [facility] Comment on above: Order Comment: Suzanne garcia Type: BLOOD SPECIMENOrdering Facility: [facility] Address: [address] [place] [address] Result Comment: Winifred mated Glomerular Filtration Rate [...] Performed By: #### 2 4323-8, ####CERV[facility] LABORATORYCLIA [id number] [place] [id number] [place] Glucose [Mass/Vol] 106 mg/dL High 74-99 [facility] Comment on above: Order Comment: Suzanne radha Type: BLOOD SPECIMENOrdering Facility: [facility] Address: [address] [place] [address] Result Comment: The [place] [employer] (ADA) provides guidance for cutoff [...] Standards of Medical Care in Diabetes 2016, [place] [employer]. Diabetes Care. 2016.39(Suppl 1). Performed By: #### 2 432-8, ####CERV[facility] LABORATORYCLIA [id number] [place] [address] [place] Potassium [Moles/Vol] 4.7 mmol/L Normal 3.7-5.1 [facility] Comment on above: Order Comment: Speci men Type: BLOOD SPECIMENOrdering Facility: [facility] Address: [address] [place] [address] Performed By: #### 2 4328, ####CERV[facility] LABORATORYCLIA [id number] [place] [address] [place] Protein [Mass/Vol] 5.3 g/dL Low 6.3-8.0 [facility] Comment on above: Order Comment: Speci men Type: BLOOD SPECIMENOrdering Facility: [facility] Address: [address] [place] [address] Performed By: #### 2 4323-01, ####C[facility] LABORATORYCLIA [id number] [place] [address] [place] Sodium [Moles/Vol] 140 mmol/L Normal 136-144 [facility] Comment on above: Order Comment: Speci men Type: BLOOD SPECIMENOrdering Facility: [facility] Address: [address] [place] [address] Performed By: #### 2 8, ####C[facility] LABORATORYCLIA [id number] [place] [address] [place] Urea nitrogen [Mass/Vol] 10 mg/dL Normal 7-21 [facility] Comment on above: Order Comment: Speci men Type: BLOOD SPECIMENOrdering Facility: [facility] Address: [address] [place] [address] Performed By: #### 2 4328, ####CERV[facility] LABORATORYCLIA [id number] [place] [id number] [place] HISTORY PHYSICALon 5 HISTORY PHYSICAL HNO ID: [id number] Author: ARNOL LIN PA-C Service: Hospital Medicine Author Type: Physician Electric Trucker Type: H&P Filed: 09/19/2024 01:01 Note Text: Attestation signed by Mable Barker DO at 09/27/2024 10:43 PM Attending Note I have not personally performed a face to face assessment of the patient. I have reviewed the [facility] note. Signature: Mable Barker Date: 09/27/2024 Time: 10:43 PM [facility] MEDICINE HISTORY AND PHYSICAL EXAM SERVICE DATE: 09/19/2024 SERVICE TIME: 12:25 AM Primary Care Physician: Raf Casey MD, MD NIGHT AND WEEKEND COVERAGE: [facility] COVERAGE: Days: [phone], please page attending physician. Nights: [phone], please page [facility] Night coverage pager [phone]. Subjective CHIEF COMPLAINT: Fall, left knee pain [...] embolism (HCC) 2011 SLE (systemic lupus erythematosus) ([facility]) Type II or unspecified type diabetes mellitus [...] daily. HYDROcodone-loyda (more content not included)... Normal [facility] Magnesium SerPl-mCncon 09-19 Magnesium [Mass/Vol] 1.8 mg/dL Normal 1.7-2.3 [facility] Comment on above: Order Comment: Speci men Type: BLOOD SPECIMENOrdering Facility: [facility] Address: [address] [place] [address] Performed By: #### 2 4323-8, 24474-5 ####[facility] LABORATORYCLIA [id number] [address] NUTRITIONon 09-19-2024 NUTRITION HNO ID: [id number] Author: DEVYN KAHN RD Service: Nutrition Therapy [...] Greater than 75% estimated energy needs (Drinks [place] Instant Breakfast and either Premier or Melton [...] to trial Ensure Max. Pt to order [place] Instant Breakfast. Diet Orders (From admission, onward) [...] Drain Duration External Collection Device 09/18/24 2332 [facility] <1 day MNT Billing: $ Initial Assessment: 1-15 minutes SIGNATURE: Devyn Kahn RD PATIENT NAME: Randolph Hunter DATE: September 19, 2024 TIME: 1:12 PM Normal [facility] PT panel Coag (PPP)on 2024 INR Coag (PPP) [Relative time] 1.7 {INR} High 0.9-1.3 [facility] Comment on above: Order Comment: Speci men Type: BLOOD SPECIMENOrdering Facility: [facility] Address: [address] [place] [address] Result Comment: Kaycee min K Antagonist (VKA) Therapeutic Range: INR 2 to 3 (Target INR of 2.5) Note: For patients treated with VKA drugs, such as warfarin, the [place] [employer] 2012 Guideline recommends [...] 70: 252-289 Performed By: #### 3 4528-0 ####[facility] LABORATORYCLIA [id number] [place] [address] [place] PT Coag (PPP) [Time] 17.9 s High 9.7-13.0 [facility] Comment on above: Order Comment: Speci men Type: BLOOD SPECIMENOrdering Facility: [facility] Address: [facility] [place] [address] Performed By: #### 3 4528-0 ####[facility] LABORATORYCLIA [id number] [place] [id number] [facility] [place] THERAPY NTon 09-19-2024 THERAPY NT HNO ID: [id number] Author: ESTELLE CAGE PT Service: Physical Therapy Author Type: Physical Therapist Type: Therapy (PT/OT/Speech/Resp) Filed: 09/19/2024 17:41 Note Text: Summary: PT evaluation Physical Therapy Evaluation Summary SERVICE DATE: 09/19/2024 SERVICE TIME: 1545 to 1629 ROOM: [place] [address] PT 6 Clicks Score: 12 DISCHARGE RECOMMENDATIONS [...] time. Leg Injury . Patient admitted to [facility] with Dx: Decreased activities of daily living (ADL), Fall at home, initial encounter Relevant Past Medical History: DM, edema, depression,asthma, obesity, irsutism, venous insufficiency, oseteomyeliitis of foot, SLE, cerebral palsy, pulmonary embolism, hypothyroidism, insomnai, CAD, migraines, HTN, hysterectomy HOME LIVING Patient Lives With: Spouse Assistance Available: 24-Hour, Other: See Comment Comments: LONG TERM staff for toileting and shower Entry To [...] Reduced mobility-other TREATMENT INTERVENTIONS Evaluation, Therapeutic Activity (37592) Timed Code Treatment (minutes): 25 Skilled Treatment Time (minutes): 44 $ Evaluation-Low (47463) Billed Units: 1 unit Therapeutic Activity (63445) Treatment Minutes: 25 $ Therapeutic Activity (46302) Billed Units: 2 units Range of Motion: [...] Supi (more content not included)... [facility] THERAPY NT HNO ID: [id number] Author: ESTELLE CAGE PT Service: Physical Therapy Author Type: Physical Therapist Type: Therapy (PT/OT/Speech/Resp) Filed: 09/19/2024 11:07 Note Text: Summary: PT missed visit PHYSICAL THERAPY MISSED VISIT SERVICE DATE: 09/19/2024 SERVICE TIME: 1105 ROOM: [place] [address] Patient not seen due to Patient Not Available. Discussed patient with RN and patient in the process of transferring to . Will approach as patient is available/appropriate. SIGNATURE: Estelle Cage PT PATIENT NAME: Randolph Hunter DATE: September 19, 2024 TIME: 11:06 AM Normal [facility] URINALYSIS, REFLEX MICROSCOP ICon 09-19-2024 Bilirubin Ql (U) Negative Normal Negative [facility] Comment on above: Order Comment: Speci men Type: URINE SPECIMENOrdering Facility: [facility] Address: [address] [place] [address] Performed By: #### L [id number] ####[facility] LABORATORYCLIA [id number] [address] Clarity (Unsp spec) Clear Normal Clear [facility] Comment on above: Order Comment: Speci men Type: URINE SPECIMENOrdering Facility: [facility] Address: [address] [place] [address] Performed By: #### L [id number] ####CERV[facility] LABORATORYCLIA [id number] [address] OF [facility] Color (U) Yellow Normal Yellow [facility] Comment on above: Order Comment: Speci men Type: URINE SPECIMENOrdering Facility: [facility] Address: [address] [place] [address] Performed By: #### L [id number] ####CERV[facility] LABORATORYCLIA [id number] [address] Glucose Test strip (U) [Mass/Vol] Negative Normal Negative [facility] Comment on above: Order Comment: Speci men Type: URINE SPECIMENOrdering Facility: [facility] Address: [address] [place] [address] Performed By: #### L [id number] ####CERV[facility] LABORATORYCLIA [id number] [address] Hemoglobin Ql (U) Negative Normal Negative [facility] Comment on above: Order Comment: Speci men Type: URINE SPECIMENOrdering Facility: [facility] Address: [address] [place] [address] Performed By: #### L [id number] ####CERV[facility] LABORATORYCLIA [id number] [place] [address] [place] Ketones Ql (U) Negative Normal Negative [facility] Comment on above: Order Comment: Speci men Type: URINE SPECIMENOrdering Facility: [facility] Address: [address] [place] [address] Performed By: #### L [id number] ####CERV[facility] LABORATORYCLIA [id number] [address] Leukocyte esterase Test strip Ql (U) Negative Normal Negative [facility] Comment on above: Order Comment: Speci men Type: URINE SPECIMENOrdering Facility: [facility] Address: [address] [place] [address] Performed By: #### L [id number] ####CERV[facility] LABORATORYCLIA [id number] [address] [place] Nitrite Ql (U) Negative Normal Negative [facility] Comment on above: Order Comment: Speci men Type: URINE SPECIMENOrdering Facility: [facility] Address: [address] [place] [address] Performed By: #### L [id number] ####CERV[facility] LABORATORYCLIA [id number] [place] [address] [place] pH (U) 7.0 [pH] Normal 5.0-8.0 [facility] Comment on above: Order Comment: Speci men Type: URINE SPECIMENOrdering Facility: [facility] Address: [address] [place] [address] Performed By: #### L [id number] ####CERV[facility] LABORATORYCLIA [id number] [place] [address] [place] Protein (U) [Mass/Vol] Negative Normal Negative [facility] Comment on above: Order Comment: Speci men Type: URINE SPECIMENOrdering Facility: [facility] Address: [address] [place] [address] Performed By: #### L [id number] ####CERV[facility] LABORATORYCLIA [id number] [place] [address] [place] Specific gravity (U) [Rel density] 1.010 Normal 1.005-1.03 0 [facility] Comment on above: Order Comment: Speci men Type: URINE SPECIMENOrdering Facility: [facility] Address: [address] [place] [address] Performed By: #### L [id number] ####CERV[facility] LABORATORYCLIA [id number] [address] Urobilinogen Ql (U) 0.2 EU/dL Normal 0.2-1.0 EU/dL [facility] Comment on above: Order Comment: Speci men Type: URINE SPECIMENOrdering Facility: [facility] Address: [address] [place] [address] Performed By: #### L [id number] ####CERV[facility] LABORATORYCLIA [id number] [place] [id number] [facility] ALLIED HEALTHon 09-18-2024 ALLIED HEALTH HNO ID: [id number] Author: OSVALDO BRUCE RT(R) Service: Radiology Author Type: Molded Goods Spot Picker Type: Allied Health Filed: 09/18/2024 23:10 Note [...] PATIENT PRESENTS WITH AN IMPLANTABLE OR ATTACHED ECONOMIC ANALYST: No RADIOLOGY DEPARTMENT: General X-ray: Exam(s) Completed: Pelvis X-Ray: Pelvis with Hip Left Lower Extremity X-Ray(s): Ankle, Left PERIPHERAL IV DATA: Not applicable SIGNED BY: RT Lissett(R) September 18, 2024 11:09 PM [facility] HEALTH HNO ID: [id number] Author: MONTSERRAT CUEVAS RT(R) Service: Radiology Author [...] PATIENT PRESENTS WITH AN IMPLANTABLE OR ATTACHED ECONOMIC ANALYST: No RADIOLOGY DEPARTMENT: General X-ray: Exam(s) Completed: Lower Extremity X-Ray(s): Knee, AP / LAT Left PERIPHERAL IV DATA: Not applicable SIGNED BY: RT Geeta(R) September 18, 2024 10:31 AM Normal [facility] CBC W Auto Differential pane l (Bld)on 09-18-2024 Basophils (Bld) [#/Vol] 10*3/uL Normal <0.11 [facility] Comment on above: Order Comment: Speci men Type: BLOOD SPECIMENOrdering Facility: [facility] Address: [address] [place] [address] Performed By: #### 5 7021-8 ####[facility] LABORATORYCLIA [id number] [place] [address] [place] Basophils/100 WBC (Bld) 0.3 % Normal [facility] Comment on above: Order Comment: Speci men Type: BLOOD SPECIMENOrdering Facility: [facility] Address: [address] [place] [address] Performed By: #### 5 7021-8 ####CERVANT[facility] LABORATORYCLIA [id number] [place] [address] [place] Differential cell count method Nom (Bld) Auto Normal [facility] Comment on above: Order Comment: Speci men Type: BLOOD SPECIMENOrdering Facility: [facility] Address: [address] [place] [address] Performed By: #### 5 7021-8 ####CERVANTES LABORATORYCLIA [id number] [place] [address] [place] Eosinophils (Bld) [#/Vol] 0.16 10*3/uL Normal <0.46 [facility] Comment on above: Order Comment: Speci men Type: BLOOD SPECIMENOrdering Facility: [facility] Address: [address] [place] [address] Performed By: #### 5 7021-8 ####CERVANTES LABORATORYCLIA [id number] [address] [place] Eosinophils/100 WBC (Bld) 2.1 % Normal [facility] Comment on above: Order Comment: Speci men Type: BLOOD SPECIMENOrdering Facility: [facility] Address: [address] [place] [address] Performed By: #### 5 7021-8 ####CERVANTES LABORATORYCLIA [id number] [address] [place] Erythrocyte distribution width (RBC) [Ratio] 13.3 % Normal 11.5-15.0 [facility] Comment on above: Order Comment: Speci men Type: BLOOD SPECIMENOrdering Facility: [facility] Address: [address] [place] [address] Performed By: #### 5 7021-8 ####CERVANTES LABORATORYCLIA [id number] [address] [place] Hematocrit (Bld) [Volume fraction] 37.2 % Normal 36.0-46.0 [facility] Comment on above: Order Comment: Speci men Type: BLOOD SPECIMENOrdering Facility: [facility] Address: [address] [place] [address] Performed By: #### 5 7021-8 ####CERVANTES LABORATORYCLIA [id number] [address] [place] Hemoglobin (Bld) [Mass/Vol] 12.6 g/dL Normal 11.5-15.5 [facility] Comment on above: Order Comment: Speci men Type: BLOOD SPECIMENOrdering Facility: [facility] Address: [address] [place] [address] Performed By: #### 5 7021-8 ####CERVANTES LABORATORYCLIA [id number] [place] [address] [place] Immature granulocytes (Bld) [#/Vol] 10*3/uL Normal <0.10 [facility] Comment on above: Order Comment: Speci men Type: BLOOD SPECIMENOrdering Facility: [facility] Address: [address] [place] [address] Performed By: #### 5 7021-8 ####CERVANTES LABORATORYCLIA [id number] [address] [place] [facility] Immature granulocytes/100 WBC (Bld) 0.3 % Normal [facility] Comment on above: Order Comment: Speci men Type: BLOOD SPECIMENOrdering Facility: [facility] Address: [address] [place] [address] Performed By: #### 5 7021-8 ####CERVANTES LABORATORYCLIA [id number] [place] [address] [place] Lymphocytes (Bld) [#/Vol] 1.71 10*3/uL Normal 1.00-4.00 [facility] Comment on above: Order Comment: Speci men Type: BLOOD SPECIMENOrdering Facility: [facility] Address: [address] [place] [address] Performed By: #### 5 7021-8 ####CERVANTES LABORATORYCLIA [id number] [address] Lymphocytes/100 WBC (Bld) 22.4 % Normal [facility] Comment on above: Order Comment: Speci men Type: BLOOD SPECIMENOrdering Facility: [facility] Address: [address] [place] [address] Performed By: #### 5 7021-8 ####CERVANTES LABORATORYCLIA [id number] [place] [address] [place] MCH (RBC) [Entitic mass] 30.8 pg Normal 26.0-34.0 [facility] Comment on above: Order Comment: Speci men Type: BLOOD SPECIMENOrdering Facility: [facility] Address: [address] [place] [address] Performed By: #### 5 7021-8 ####CERVANTES LABORATORYCLIA [id number] [place] [id number] [place] MCHC (RBC) [Mass/Vol] 33.9 g/dL Normal 30.5-36.0 [facility] Comment on above: Order Comment: Speci men Type: BLOOD SPECIMENOrdering Facility: [facility] Address: [address] [place] [address] Performed By: #### 5 7021-8 ####CERVANTES LABORATORYCLIA [id number] [address] [place] MCV (RBC) [Entitic vol] 91.0 fL Normal 80.0-100.0 [facility] Comment on above: Order Comment: Speci men Type: BLOOD SPECIMENOrdering Facility: [facility] Address: [address] [place] [address] Performed By: #### 5 7021-8 ####CERVANTES LABORATORYCLIA [id number] [address] [place] Monocytes (Bld) [#/Vol] 0.54 10*3/uL Normal <0.87 [facility] Comment on above: Order Comment: Speci men Type: BLOOD SPECIMENOrdering Facility: [facility] Address: [address] [place] [address] Performed By: #### 5 7021-8 ####CERVANTES LABORATORYCLIA [id number] [address] Monocytes/100 WBC (Bld) 7.1 % Normal [facility] Comment on above: Order Comment: Speci men Type: BLOOD SPECIMENOrdering Facility: [facility] Address: [address] [place] [address] Performed By: #### 5 7021-8 ####CERVANTES LABORATORYCLIA [id number] [address] [place] Neutrophils (Bld) [#/Vol] 5.18 10*3/uL Normal 1.45-7.50 [facility] Comment on above: Order Comment: Speci men Type: BLOOD SPECIMENOrdering Facility: [facility] Address: [address] [place] [address] Performed By: #### 5 7021-8 ####CERVANTES LABORATORYCLIA [id number] [address] Neutrophils/100 WBC (Bld) 67.8 % Normal [facility] Comment on above: Order Comment: Speci men Type: BLOOD SPECIMENOrdering Facility: [facility] Address: [address] [place] [address] Performed By: #### 5 7021-8 ####CERVANTES LABORATORYCLIA [id number] [place] [address] [place] Nucleated RBC (Bld) [#/Vol] 10*3/uL Normal <0.01 [facility] Comment on above: Order Comment: Speci men Type: BLOOD SPECIMENOrdering Facility: [facility] Address: [address] [place] [address] Performed By: #### 5 7021-8 ####CERVANTES LABORATORYCLIA [id number] [address] Nucleated RBC/100 WBC (Bld) [Ratio] 0.0 /100 WBC Normal [facility] Comment on above: Order Comment: Speci men Type: BLOOD SPECIMENOrdering Facility: [facility] Address: [address] [place] [address] Performed By: #### 5 7021-8 ####CERVANTES LABORATORYCLIA [id number] [address] [place] Platelet mean volume (Bld) [Entitic vol] 10.0 fL Normal 9.0-12.7 [facility] Comment on above: Order Comment: Speci men Type: BLOOD SPECIMENOrdering Facility: [facility] Address: [address] [place] [address] Performed By: #### 5 7021-8 ####CERVANTES LABORATORYCLIA [id number] [address] [place] Platelets (Bld) [#/Vol] 176 10*3/uL Normal 150-400 [facility] Comment on above: Order Comment: Speci men Type: BLOOD SPECIMENOrdering Facility: [facility] Address: [address] [place], [place] [address] [id number] Performed By: #### 5 7021-8 ####CERVANTES LABORATORYCLIA [id number] [address] [place] RBC (Bld) [#/Vol] 4.09 10*6/uL Normal 3.90-5.20 [facility] Comment on above: Order Comment: Speci men Type: BLOOD SPECIMENOrdering Facility: [facility] Address: [address] [place] [address] [place] [address] Performed By: #### 5 7021-8 ####CERVANTES LABORATORYCLIA [id number] [place] [address] [place] WBC (Bld) [#/Vol] 7.63 10*3/uL Normal 3.70-11.00 [facility] Comment on above: Order Comment: Speci men Type: BLOOD SPECIMENOrdering Facility: [facility] Address: [address] [place] [address] [place] [address] Performed By: #### 5 7021-8 ####CERVANTES LABORATORYCLIA [id number] [address] CNPNon 09-18-2024 CNPN Telephone (ORMDNA) RANDOLPH HUNTER ([id number]) 1950 F Date Time Provider Department 09/18/24 RAF CASEY ORDIANA During your visit today, we recorded the following information about you: Kevin Jain 09/18/2024 11:34 AM Signed Patient seen in [facility] on 09/18/2024 in regards to left knee pain Dr. Soares is the provider material controller Would or another provider be willing to see patient in regards to their injury? Patient can be reached at [phone] Thank You! Allergies As of Date: 09/18/2024 [...] Comments: Dioxicillin PROMETHAZINE 05/26/2019 16 - Unknown JIFCTNR-HEP-BLQ REDUCTASE INHIBIT*07/08/2018 17 - Myalgia DELETED: CHEESE 03/09/2022 6 - Diarrhea 8 - GI Upset Comments: Parmesan cheese and serbian cheese, per patient Date Reviewed: 09/18/2024 Reviewed [...] once a month. - blood sugar diagnostic (Dobns AgencyTOUCH VERIO TEST STRIPS) test strip Test blood [...] 09/18/2024 Note (more content not included)... Normal [facility] CT KNEE WO IVCON LTon 2024 CT KNEE WO IVCON LT * * *Final Report* * * DATE OF EXAM: Sep 18 2024 10:31PM [facility] 0083 - CT [...] Small joint effusion. * Tricompartmental degenerative changes. Psychology Professor: PSCB Transcribe Date/Time: Sep 18 2024 11:34P Dictated by : STEPHANE GRIMES MD This examination was interpreted and the report reviewed and electronically signed by: STEPHANE GRIMES MD on Sep 18 2024 11:37PM EST [id number] Normal [facility] Comprehensive metabolic 2000 panelon 09-18-2024 Albumin [Mass/Vol] 3.2 g/dL Low 3.9-4.9 [facility] Comment on above: Order Comment: Speci men Type: BLOOD SPECIMENOrdering Facility: [facility] Address: [address] [place] [id number] Performed By: #### 2 4323-8 ####CERVANTES LABORATORYCLIA [id number] [address] ALP [Catalytic activity/Vol] 42 U/L Normal 34-123 [facility] Comment on above: Order Comment: Speci men Type: BLOOD SPECIMENOrdering Facility: [facility] Address: [address] [place] [address] Performed By: #### 2 4323-8 ####CERVANTES LABORATORYCLIA [id number] [address] [place] ALT [Catalytic activity/Vol] 8 U/L Normal 7-38 [facility] Comment on above: Order Comment: Speci men Type: BLOOD SPECIMENOrdering Facility: [facility] Address: [address] [place] [address] Performed By: #### 2 4323-8 ####CERVANTES LABORATORYCLIA [id number] [place] [address] [place] Anion gap [Moles/Vol] 10 mmol/L Normal 8-15 [facility] Comment on above: Order Comment: Speci men Type: BLOOD SPECIMENOrdering Facility: [facility] Address: [address] [place] [address] Performed By: #### 2 4323-8 ####CERVANTES LABORATORYCLIA [id number] [address] AST [Catalytic activity/Vol] 19 U/L Normal 13-35 [facility] Comment on above: Order Comment: Speci men Type: BLOOD SPECIMENOrdering Facility: [facility] Address: [address] [place], [place] [address] Performed By: #### 2 4323-8 ####CERVANTES LABORATORYCLIA [id number] [address] [place] Bilirubin [Mass/Vol] 0.5 mg/dL Normal 0.2-1.3 [facility] Comment on above: Order Comment: Speci men Type: BLOOD SPECIMENOrdering Facility: [facility] Address: [address] [place] [address] Performed By: #### 2 4323-8 ####CERVANTES LABORATORYCLIA [id number] [place] [address] [place] Calcium [Mass/Vol] 9.1 mg/dL Normal 8.5-10.2 [facility] Comment on above: Order Comment: Speci men Type: BLOOD SPECIMENOrdering Facility: [facility] Address: [address] [place] [address] Performed By: #### 2 4323-8 ####CERVANTES LABORATORYCLIA [id number] [place] [address] [place] Chloride [Moles/Vol] 98 mmol/L Normal 98-107 [facility] Comment on above: Order Comment: Speci men Type: BLOOD SPECIMENOrdering Facility: [facility] Address: [address] [place] [address] Performed By: #### 2 4323-8 ####CERVANTES LABORATORYCLIA [id number] [place] [address] [place] CO2 [Moles/Vol] 28 mmol/L Normal 22-30 [facility] Comment on above: Order Comment: Speci men Type: BLOOD SPECIMENOrdering Facility: [facility] Address: [address] [place] [address] Performed By: #### 2 4323-8 ####CERVANTES LABORATORYCLIA [id number] [address] [place] Creatinine [Mass/Vol] 0.80 mg/dL Normal 0.58-0.96 [facility] Comment on above: Order Comment: Speci men Type: BLOOD SPECIMENOrdering Facility: [facility] Address: [address] [place] [address] Performed By: #### 2 4323-8 ####CERVANTES LABORATORYCLIA [id number] [address] Creatinine and Glomerular filtration rate.predicted panel (S/P/Bld) 78 mL/min/1.73m??? Normal >=60 [facility] Comment on above: Order Comment: Speci men Type: BLOOD SPECIMENOrdering Facility: [facility] Address: [address] [place] [address] Result Comment: Winifred mated Glomerular Filtration Rate [...] actual GFR. Performed By: #### 2 4323-8 ####[facility]ST[facility] LABORATORYCLIA [id number] [place] [id number] [place] Glucose [Mass/Vol] 121 mg/dL High 74-99 [facility] Comment on above: Order Comment: Suzanne men Type: BLOOD SPECIMENOrdering Facility: [facility] Address: [address] [place] [address] Result Comment: The [place] Diabetes Association (ADA) provides guidance for cutoff [...] Standards of Medical Care in Diabetes 2016, [place] [employer]. Diabetes Care. 2016.39(Suppl 1). Performed By: #### 2 4323-8 ####[facility] LABORATORYCLIA [id number] [place] [address] [place] Potassium [Moles/Vol] 4.3 mmol/L Normal 3.7-5.1 [facility] Comment on above: Order Comment: Suzanne men Type: BLOOD SPECIMENOrdering Facility: [facility] Address: [address] [place] [id number] Performed By: #### 2 4323-8 ####[facility] LABORATORYCLIA [id number] [place] [address] [place] Protein [Mass/Vol] 6.4 g/dL Normal 6.3-8.0 [facility] Comment on above: Order Comment: Speci men Type: BLOOD SPECIMENOrdering Facility: [facility] Address: [address] [place] [address] Performed By: #### 2 4323-8 ####CERVANTES LABORATORYCLIA [id number] [address] [place] Sodium [Moles/Vol] 136 mmol/L Normal 136-144 [facility] Comment on above: Order Comment: Speci men Type: BLOOD SPECIMENOrdering Facility: [facility] Address: [address] [place] [address] Performed By: #### 2 4323-8 ####CERVANTES LABORATORYCLIA [id number] [address] Urea nitrogen [Mass/Vol] 10 mg/dL Normal 7-21 [facility] Comment on above: Order Comment: Speci men Type: BLOOD SPECIMENOrdering Facility: [facility] Address: [address] [place] [address] Performed By: #### 2 4323-8 ####CERVANTES LABORATORYCLIA [id number] [address] ED NOTEon 09-18-2024 ED NOTE HNO ID: [id number] Author: MONE KING RN Service: ? Author Type: Registered Nurse Type: ED Notes Filed: 09/18/2024 22:14 Note Text: Pt report given to Zaria BARROSO) [facility] ED NOTE HNO ID: [id number] Author: MONE KING RN Service: ? Author Type: Registered Nurse Type: ED Notes Filed: 09/18/2024 22:15 Note Text: IV attempted by this RN. Medic requested to bedside for ultrasound. [facility] ED NOTE HNO ID: [id number] Author: LIANNE FERNANDEZ, NAWAF Service: ? Author Type: Registered Nurse Type: ED Notes Filed: 09/18/2024 20:22 Note Text: Bed: ED-15 Expected date: Expected time: Means of arrival: Comments: eric [facility] ED NOTE HNO ID: [id number] Author: LIANNE FERNANDEZ, NAWAF Service: ? Author Type: Registered Nurse Type: ED Notes Filed: 09/18/2024 13:36 Note Text: Discharge instructions reviewed with patient via teachback. Pt verbalizes understanding. Pt awake and alert, respirations regular and unlabored. No further questions for this RN. Report given to [facility] ED NOTE HNO ID: [id number] Author: ZARIA ZAPATA RN Service: ? Author Type: Registered Nurse Type: ED Notes Filed: 09/18/2024 10:15 Note Text: Bed: ED-01 Expected date: Expected time: Means of arrival: [facility] Comments: [facility] ED PROV NOTEon 09-18-2024 ED PROV NOTE HNO ID: [id number] Author: KRISTI POND DO Service: Emergency Medicine [...] Status Change Penicillins Hives Dioxicillin Promethazine Intolerance Gnwqkrd-Wya-Qdb Red* Myalgia Cheese Diarrhea, GI Upset Parmesan cheese and serbian cheese, per patient Review of Systems Constitutional: [...] Left lower (more content not included)... Normal [facility] ED PROV NOTE HNO ID: [id number] Author: CLINTON GRAJEDA PA-C Service: ? Author Type: Physician Electric Trucker Type: ED Provider Notes Filed: 09/18/2024 11:31 [...] Status Change Penicillins Hives Dioxicillin Promethazine Unknown Nvwwtjn-Zgd-Rmz Red* Myalgia Cheese Diarrhea, GI Upset Parmesan cheese and serbian cheese, per patient Review of Systems Constitutional: [...] prior sen (more content not included)... Normal [facility] PT panel Coag (PPP)on 2024 INR Coag (PPP) [Relative time] 2.3 {INR} High 0.9-1.3 [facility] Comment on above: Order Comment: Speci men Type: BLOOD SPECIMENOrdering Facility: [facility] Address: [address] [place] [address] Result Comment: Kaycee min K Antagonist (VKA) Therapeutic Range: INR 2 to 3 (Target INR of 2.5) Note: For patients treated with VKA drugs, such as warfarin, the [place] [employer] 2012 Guideline recommends [...] 70: 252-289 Performed By: #### 3 4528-0 ####CREST[facility] LABORATORYCLIA [id number] [place] [address] [place] PT Coag (PPP) [Time] 23.8 s High 9.7-13.0 [facility] Comment on above: Order Comment: Speci men Type: BLOOD SPECIMENOrdering Facility: [facility] [address]: [address] [facility] [facility] [place] [address] Performed By: #### 3 4528-0 ####CREST[facility] LABORATORYCLIA [id number] [place] [id number] [place] XR ANKLE 3V AP/LAT/OBL [...] tissue swelling of the left lower extremity. Psychology Professor: PSCB Transcribe Date/Time: Sep 18 2024 11:41P Dictated by : STEPHANE GRIMES MD This examination was interpreted and the report reviewed and electronically signed by: STEPHANE GRIMES MD on Sep 18 2024 11:44PM EST [id number] [facility] XR HIP 3V PELV+ AP/LAT LTon [...] tissue swelling of the left lower extremity. Psychology Professor: PSCB Transcribe Date/Time: Sep 18 2024 11:41P Dictated by : STEPHANE GRIMES MD This examination was interpreted and the report reviewed and electronically signed by: STEPHANE GRIMES MD on Sep 18 2024 11:44PM EST [id number] [facility] XR KNEE 4V AP/LAT/OBLS LTon 09-18-2024 [...] effusion. Vascular calcifications. IMPRESSION: No acute abnormality Psychology Professor: PSCB Transcribe Date/Time: Sep 18 2024 10:47A Dictated by : WILBERT WALKER MD This examination was interpreted and the report reviewed and electronically signed by: WILBERT WALKER MD on Sep 18 2024 10:48AM EST [id number] [facility] 08-05-2024 [facility] Office Visit (PSYLWM ) RANDOLPH HUNTER ([id number]) 1950 F Date Time Provider Department 08/05/24 11:00 AM GILMER COTTON PSYLWM During your visit today, we recorded the following information about you: Gilmer Cotton, PhD 08/05/2024 12:29 PM Signed [facility] Progress Note Randolph Hunter 08/05/2024 [id number] PROVIDER: Gilmer Cotton, PhD CPT Code: Time: [...] directed once a month. blood sugar diagnostic (Proclivity SystemsUCH VERIO TEST STRIPS) test strip Test blood [...] Psychiatric Medication Issues: see med record DIAGNOSIS: [place] I: Depress (more content not included)... Normal [facility] ED Nursing Noteon 07-10-2024 ED Nursing Note Pt resting quietly i n bed with blanket over face. Respirations even and non labored. No coughing noted at this time. Await transport by [facility]. Normal [facility] ED Nursing Note Dr. Jha at bedside. Normal [facility] ED Nursing Noteon 07-09-[address] Jha to bedside . Pt given water. Normal [facility] ED Provider Noteon ED Provider Note EMERGENCY [...] TABLET Place under the tongue. NYSTATIN (MYCOSTATIN) 566983 UNIT/GM POWDER Apply topically 2 times daily. [...] Resource Strain: Low Risk (01/02/2020) Received from [facility] Overall Financial Resource Strain (CARDIA) Difficulty of Paying Living Expenses: Not very hard Food Insecurity: Food Insecurity Present (01/02/2020) Received from [facility] Hunger Vital Sign Worried About Running Out of Food in the Last Year: Sometimes true Ran Out of Food in the Last Year: Never true Transportation Needs: Unmet Transportation Needs (01/02/2020) Received from [facility] (more content not included)... Normal [facility] XR Chest Single viewon 07-09 1. No acute consolidation. Report Dictated on Electronically Signed By: Velasquez Nova MD Electronically Signed Date/Time: 07/09/2024 11:45 PM EST [facility] Patient Name: RANDOLPH [...] change again noted in the thoracic spine. [facility] Velasquez Nova MD [...] Electronically Signed Date/Time: 07/09/2024 11:45 PM EST [facility] Radiology Study observation (narrative) Create XR Chest Single viewOrdered By: Velasquez Nova on 07-09-2024 Create Work Phone: CNOVon 05-02-2024 [facility] Office Visit (PSYLWM ) RANDOLPH HUNTER ([id number]) 1950 F Date Time Provider Department 05/02/24 11:00 AM GILMER COTTON PSYLWM During your visit today, we recorded the following information about you: Gilmer Cotton, PhD 05/02/2024 12:11 PM Signed [facility] Progress Note Randolph Hunter 05/02/2024 [id number] PROVIDER: Gilmer Cotton, PhD CPT Code: Time: [...] directed once a month. blood sugar diagnostic ([employer] VERIO TEST STRIPS) test strip Test blood [...] Issues: No change from previous appointment DIAGNOSIS: [place] I: Depressive Disorder recurrent Morbidly Obese CP [place] II : Deferred [place] III : See medical history [place] IV: Health (more content not included)... Normal [facility] PATINSon 02-10-2024 PATINS Ordered treatment co mpleted and patient is healed. Patient discharged without any issues. All questions answered. Call the clinic if your wound reopens or a new wound appears at [phone]. Edema/Swelling: Avoid standing for long periouds of [...] a day to promote wound healing Normal [facility] Progress Noteon 02-10-2024 Progress Note Assessments Nursing [...] Test Results/Process Orders 10 [] Staff telephones [facility], Nursing Homes/Clarify Orders 10 [...] Level 5 (160 or more Points) Normal [facility] Progress Note Subjective Patient ID: Randolph Hunter [...] prn Pt agrees with plan . 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 verbal Consent given by: patient Risks discussed? procedural risks discussed Immediately prior to the procedure a time out was called and the performing provider verified the correct patient, procedure, equipment, web support engineer, and site/side marked as required. Debridement Details [...] Response to treatment: procedure was tolerated well [facility] PATINSon 01-27-2024 PATINS Follow-up Appointmen ts: Return Appointment in 1 week. Call [place] [facility] at [phone], [facility] at [phone], or [facility] at [phone]. Edema/Swelling: Avoid standing for long periouds of [...] the wound and secure with tape. Normal [facility] No Panel Informationon 01-19 Isaac Chicas DO 01/20/2024 3:54 PM Debridement Wound/Incision 01/20/24 Pressure Injury Foot Left Performed by: Isaac Chicas DO Authorized by: Isaac Chicas, Consent Consent obtained? verbal Consent given by: patient Risks discussed? procedural risks discussed Immediately prior to the procedure a time out was called and the performing provider verified the correct patient, procedure, equipment, web support engineer, and site/side marked as required. Debridement Details [...] Response to treatment: procedure was tolerated well [facility] PATINSon 01-20-2024 PATINS Follow-up Appointmen ts: Return Appointment in 1 week. Call [place] [facility] at [phone], [facility] at [phone], or [facility] at [phone]. Edema/Swelling: Avoid standing for long periouds of [...] the wound and secure with tape. Normal [facility] Progress Noteon 01-20-2024 Progress Note [facility] [place] [address] [place] [id number] Loc: [phone] Wound Care Visit - New Patient Progress [...] ti,es a day, Disp: , Rfl: HYDROcodone-acetaminophen ([place]) 5-325 MG tablet, Take 1 tablet by [...] the tongue., Disp: , Rfl: nystatin (Mycostatin) 461938 UNIT/GM powder, Apply topically 2 times daily., [...] Consent given (more content not included)... Normal [facility] Progress Note Assessments Nursing Assessment/Reassessment [...] Test Results/Process Orders 10 [x] Staff telephones [facility], Nursing [facility]/Clarify Orders 10 [] Routine Transfer to another [...] Level 5 (160 or more Points) Normal [facility] ED Nursing Noteon 12-16-2023 ED Nursing Note Patient wheeled out ED for transport to residence. discharge instructions sent to facility with patient. No further questions. Respirations even and non labored. No acute distress. A&O x4. Gifty Cornell RN 12/16/23 0015 Normal [facility] BASIC METABOLIC PANELon 11-21 Anion gap [Moles/Vol] 4 mmol/L Normal 3-13 [facility] Comment on above: Performed By: #### L AB149, LAB15 ####Pad Machine Offbearer: PING TOWNSEND ([id number])[facility] [place] [address] Calcium [Mass/Vol] 8.7 mg/dL Normal 8.4-10.4 [facility] Comment on above: Performed By: #### L AB149, LAB15 ####Pad Machine Offbearer: PING TOWNSEND ([id number])[facility] RITTMAN (SWRLAB)[address] [place] [address] Chloride [Moles/Vol] 99 mmol/L Normal 98-107 [facility] Comment on above: Performed By: #### L AB149, LAB15 ####Pad Machine Offbearer: PING TOWNSEND ([id number])[facility] HipGeoTMAN (SWRLAB)[address] [place] [address] [place] CO2 [Moles/Vol] 32 mmol/L High 22-30 [facility] Comment on above: Performed By: #### L AB149, LAB15 ####Pad Machine Offbearer: PING TOWNSEND ([id number])FIONA ROSSTMAN (SWRLAB)[address] [place] [address] [place] Creatinine [Mass/Vol] 1.03 mg/dL Normal 0.52-1.04 [facility] Comment on above: Performed By: #### L AB149, LAB15 ####Pad Machine Offbearer: PING TOWNSEND ([id number])[facility] ROSSTMAN (SWRLAB)[address] [place] [address] [place] GLOMERULAR FILTRATION RATE ML/MIN/1.73 SQ M.PREDICTED 57.9 mL/min/1.73m*2 Low >60.0 [facility] Comment on above: Result Comment: Calc ulation based on the Chronic Kidney Disease Epidemiology Collaboration (CKD-EPI) equation refit without adjustment for race Performed By: #### L AB149, LAB15 ####Pad Machine Offbearer: PING TOWNSEND ([id number])[facility] ROSSTMAN (SWRLAB)[address] [place] [address] [place] Glucose [Mass/Vol] 104 mg/dL High 70-100 [facility] Comment on above: Performed By: #### L AB149, LAB15 ####Pad Machine Offbearer: PING TOWNSEND ([id number])[facility]ENTER[facility] CHATTERJEE RITTMAN (SWRLAB)[address] [place] [address] [place] Potassium [Moles/Vol] 4.5 mmol/L Normal 3.5-5.1 [facility] Comment on above: Performed By: #### L AB149, LAB15 ####Pad Machine Offbearer: PING TOWNSEND ([id number])[facility] ROSSTMAN (SWRLAB)[address] [place] [address] [place] Sodium [Moles/Vol] 135 mmol/L Normal 135-145 [facility] Comment on above: Performed By: #### L AB149, LAB15 ####Pad Machine Offbearer: PING TOWNSEND ([id number])[facility] KLAUSTMAN (SWRLAB)[address] [place] [address] Urea nitrogen [Mass/Vol] 12 mg/dL Normal 7-17 [facility] Comment on above: Performed By: #### L AB149, LAB15 ####Pad Machine Offbearer: PING TOWNSEND ([id number])[facility] KLAUSTMAN (SWRLAB)[address] [place] [address] BLOOD CULTUREon 12-15-2023 Bacteria identified Cx Nom (Bld) BLOOD CULTURE Reference No growth at 5 days ORDER COMMENTS: Blood Collection Site: Right Antecubital [ S = SUSCEPTIBLE R = RESISTANT I = INTERMEDIATE S-DD = Susceptible-dose dependent NS = Non-susceptible NO = No Interpretation ] Normal [facility] Comment on above: Performed By: #### L AB462 ####Pad Machine Offbearer: PING TOWNSEND ([id number])[facility] ([facility])[address] [place] [address] Bacteria identified Cx Nom (Bld) BLOOD CULTURE Reference No growth at 5 days ORDER COMMENTS: Blood Collection Site: Left Antecubital [ S = SUSCEPTIBLE R = RESISTANT I = INTERMEDIATE S-DD = Susceptible-dose dependent NS = Non-susceptible NO = No Interpretation ] Normal [facility] Comment on above: Performed By: #### L AB462 ####Pad Machine Offbearer: PING TOWNSEND ([id number])[facility] ([facility])[address] [place] [address] Basic metabolic 1998 panelon 12-15-2023 Anion gap [Moles/Vol] 4 mmol/L 3 - 13 mmol/L [facility] Calcium [Mass/Vol] 8.7 mg/dL 8.4 - 10. 4 mg/dL [facility] Chloride [Moles/Vol] 99 mmol/L 98 - 10 7 mmol/L [facility] CO2 [Moles/Vol] 32 mmol/L High 22 - 30 mmol/L [facility] Creatinine [Mass/Vol] 1.03 mg/dL 0.52 - 1.04 mg/dL [facility] GFR/1.73 sq M.predicted MDRD (S/P/Bld) [Vol rate/Area] 57.9 mL/min/{1.73_m2} Low - PINF [facility] Comment on above: Calculation based on the Chronic Kidney Disease Epidemiology Collaboration (CKD-EPI) equation refit without adjustment for race Glucose [Mass/Vol] 104 mg/dL High 70 - 100 mg/dL [facility] Potassium [Moles/Vol] 4.5 mmol/L 3.5 - 5.1 mmol/L [facility] Sodium [Moles/Vol] 135 mmol/L 135 - 145 mmol/L [facility] Urea nitrogen [Mass/Vol] 12 mg/dL 7 - 17 mg/dL [facility] C-REACTIVE PROTEINon 024 CRP [Mass/Vol] 57.4 mg/L High <10.0 [facility] Comment on above: Performed By: #### L AB149, LAB15 ####Pad Machine Offbearer: PING TOWNSEND ([id number])[facility] (SWRLAB)[address] [place] [address] CBC W Auto Differential pane l (Bld)on 12-15-2023 Basophils (Bld) [#/Vol] 0.0 10*3/uL 0.0 - 0.2 10*3/uL [facility] Basophils/100 WBC (Bld) 0.2 % 0.0 - 2.0 % [facility] Eosinophils (Bld) [#/Vol] 0.1 10*3/uL 0.0 - 0.5 10*3/uL [facility] Eosinophils/100 WBC (Bld) 0.7 % 0.0 - 6.0 % [facility] Erythrocyte distribution width (RBC) [Ratio] 12.6 % 11.5 - 15.0 % [facility] Hematocrit (Bld) [Volume fraction] 38.3 % 35.0 - 47.0 % [facility] Hemoglobin (Bld) [Mass/Vol] 13.1 g/dL 11.7 - 16.0 g/dL [facility] Immature granulocytes (Bld) [#/Vol] 0.0 10*3/uL NINF - 0.1 10*3/uL [facility] Immature granulocytes/100 WBC (Bld) 0.2 % 0.0 - 2.0 % [facility] Interpretation and review of laboratory results Abnormal [facility] IPF 3 [facility] Lymphocytes (Bld) [#/Vol] 0.9 10*3/uL Low 1.0 - 4.3 10*3/uL [facility] Lymphocytes/100 WBC (Bld) 11.2 % Low 15.0 - 45.0 % [facility] MCH (RBC) [Entitic mass] 31.2 pg 26.0 - 34.0 pg [facility] MCHC (RBC) [Mass/Vol] 34.2 % 30.5 - 36.0 % [facility] MCV (RBC) [Entitic vol] 91.2 fL 77.0 - 99.0 fL [facility] Monocytes (Bld) [#/Vol] 0.5 10*3/uL 0.0 - 0.9 10*3/uL [facility] Monocytes/100 WBC (Bld) 5.6 % 5.0 - 13.0 % [facility] Neutrophils (Bld) [#/Vol] 6.8 10*3/uL 1.8 - 7.5 10*3/uL [facility] Neutrophils/100 WBC (Bld) 82.1 % High 38.0 - 82.0 % [facility] Nucleated RBC/100 WBC (Bld) [Ratio] 0.0 % [facility] Platelet mean volume (Bld) [Entitic vol] 10.1 fL 9.0 - 12.7 fL [facility] Platelets (Bld) [#/Vol] 149 10*3/uL 140 - 440 10*3/uL [facility] RBC (Bld) [#/Vol] 4.20 10*6/uL 3.80 - 5.20 10*6/uL [facility] WBC (Bld) [#/Vol] 8.3 10*3/uL 3.6 - 10.7 10*3/uL [facility] CBC WITH AUTO DIFFERENTIALon 12-15-2023 Basophils (Bld) [#/Vol] 0.0 10*3/uL Normal 0.0-0.2 [facility] Comment on above: Performed By: #### L AB322, [id number] ####Pad Machine Offbearer: PING TOWNSEND ([id number])[facility] RITTMAN (SWRLAB)[address] [place] [address] [place] Basophils/100 WBC (Bld) 0.2 % Normal 0.0-2.0 [facility] Comment on above: Performed By: #### L AB322, [id number] ####Pad Machine Offbearer: PING TOWNSEND ([id number])[facility]ENTERMary[facility] CHATTERJEE RITTMAN (SWRLAB)[address] [place] [address] Eosinophils (Bld) [#/Vol] 0.1 10*3/uL Normal 0.0-0.5 [facility] Comment on above: Performed By: #### L AB322, [id number] ####Pad Machine Offbearer: PING TOWNSEND ([id number])[facility]ENTERMaryellen CHATTERJEE RITTMAN (SWRLAB)[address] [place] [address] [place] Eosinophils/100 WBC (Bld) 0.7 % Normal 0.0-6.0 [facility] Comment on above: Performed By: #### Abiodun AB322, [id number] ####Pad Machine Offbearer: PING TOWNSEND ([id number])[facility]ENTERMaryellen CHATTERJEE RITTMAN (SWRLAB)[address] [place] [address] Erythrocyte distribution width (RBC) [Ratio] 12.6 % Normal 11.5-15.0 [facility] Comment on above: Performed By: #### Abiodun AB322, [id number] ####Pad Machine Offbearer: PING TOWNSEND ([id number])[facility]ENTERMary[facility] CHATTERJEE RITTMAN (SWRLAB)[address] [place] [address] Hematocrit (Bld) [Volume fraction] 38.3 % Normal 35.0-47.0 [facility] Comment on above: Performed By: #### L AB322, [id number] ####Pad Machine Offbearer: PING TOWNSEND ([id number])[facility]ENTER[facility] CHATTERJEE RITTMAN (SWRLAB)[address] [place] [address] Hemoglobin (Bld) [Mass/Vol] 13.1 g/dL Normal 11.7-16.0 [facility] Comment on above: Performed By: #### L AB322, [id number] ####Pad Machine Offbearer: PING TOWNSEND ([id number])[facility]ENTERMary[facility] CHATTERJEE RITTMAN (SWRLAB)[address] [place] [address] IMMATURE GRANS % 0.2 % Normal 0.0-2.0 [facility] Comment on above: Performed By: #### L AB322, [id number] ####Pad Machine Offbearer: PING TOWNSEND ([id number])[facility]ENTER[facility] CHATTERJEE RITTMAN (SWRLAB)[address] [place] [address] IMMATURE GRANS ABSOLUTE 0.0 10*3/uL Normal <0.1 [facility] Comment on above: Performed By: #### L AB322, [id number] ####Pad Machine Offbearer: PING TOWNSEND ([id number])[facility]ENTERMary[facility] CHATTERJEE RITTMAN (SWRLAB)[address] [place] [address] [place] IPF 3 Normal [facility] Comment on above: Performed By: #### Abiodun AB322, [id number] ####Pad Machine Offbearer: PING TOWNSEND ([id number])[facility]ENTERMary[facility] CHATTERJEE RITTMAN (SWRLAB)[address] [place] [address] Lymphocytes (Bld) [#/Vol] 0.9 10*3/uL Low 1.0-4.3 [facility] Comment on above: Performed By: #### Abiodun AB322, [id number] ####Pad Machine Offbearer: PING TOWNSEND ([id number])[facility]ENTERMary[facility] CHATTERJEE RITTMAN (SWRLAB)[address] [place] [address] [place] Lymphocytes/100 WBC (Bld) 11.2 % Low 15.0-45.0 [facility] Comment on above: Performed By: #### L AB322, [id number] ####Pad Machine Offbearer: PING TOWNSEND ([id number])[facility]ENTERMaryellen LANGSTONERIC RITTMAN (SWRLAB)[address] [place] [address] MCH (RBC) [Entitic mass] 31.2 pg Normal 26.0-34.0 [facility] Comment on above: Performed By: #### Abiodun AB322, [id number] ####Pad Machine Offbearer: PING TOWNSEND ([id number])[facility]ENTERMary[facility] CHATTERJEE RITTMAN (SWRLAB)[address] [place] [address] MCHC 34.2 % Normal 30.5-36.0 [facility] Comment on above: Performed By: #### Abiodun AB322, [id number] ####Pad Machine Offbearer: PING TOWNSEND ([id number])[facility]ENTERMary[facility] CHATTERJEE RITTMAN (SWRLAB)[address] [place] [address] MCV (RBC) [Entitic vol] 91.2 fL Normal 77.0-99.0 [facility] Comment on above: Performed By: #### Abiodun AB322, [id number] ####Pad Machine Offbearer: PING TOWNSEND ([id number])[facility]ENTERMary[facility] CHATTERJEE RITTMAN (SWRLAB)[address] [place] [address] Monocytes (Bld) [#/Vol] 0.5 10*3/uL Normal 0.0-0.9 [facility] Comment on above: Performed By: #### Abiodun AB322, [id number] ####Pad Machine Offbearer: IPNG TOWNSEND ([id number])[facility]ENTERMaryellen CHATTERJEE RITTMAN (SWRLAB)[address] [place] [address] [place] Monocytes/100 WBC (Bld) 5.6 % Normal 5.0-13.0 [facility] Comment on above: Performed By: #### Abiodun AB322, [id number] ####Pad Machine Offbearer: PING TOWNSEND ([id number])[facility]ENTERMaryellen LANGSTONERIC RITTMAN (SWRLAB)[address] [place] [address] NEUTROPHILS ABSOLUTE 6.8 10*3/uL Normal 1.8-7.5 [facility] Comment on above: Performed By: #### Abiodun AB322, [id number] ####Pad Machine Offbearer: PING TOWNSEND ([id number])FIONA CHATTERJEE RITTMAN (SWRLAB)[address] [place] [address] [place] Neutrophils/100 WBC (Bld) 82.1 % High 38.0-82.0 [facility] Comment on above: Performed By: #### Abiodun AB322, [id number] ####Pad Machine Offbearer: PING TOWNSEND ([id number])[facility]ENTERMary[facility] CHATTERJEE RITTMAN (SWRLAB)[address] [place] [address] [place] NRBC 0.0 /100 WBCs Normal 0.0-2.0 [facility] Comment on above: Performed By: #### Abidoun AB322, [id number] ####Pad Machine Offbearer: PING TOWNSEND ([id number])FIONA CHATTERJEE RITTMAN (SWRLAB)[address] [place] [address] [place] Platelet mean volume (Bld) [Entitic vol] 10.1 fL Normal 9.0-12.7 [facility] Comment on above: Performed By: #### Abiodun AB322, [id number] ####Pad Machine Offbearer: PING TOWNSEND ([id number])[facility]ENTERMary[facility] CHATTERJEE RITTMAN (SWRLAB)[address] [place] [address] [place] Platelets (Bld) [#/Vol] 149 10*3/uL Normal 140-440 [facility] Comment on above: Performed By: #### Abiodun AB322, [id number] ####Pad Machine Offbearer: PING TOWNSEND ([id number])[facility]ENTERMary[facility] CHATTERJEE RITTMAN (SWRLAB)[address] [place] [address] [place] RBC (Bld) [#/Vol] 4.20 10*6/uL Normal 3.80-5.20 [facility] Comment on above: Performed By: #### L AB322, [id number] ####Pad Machine Offbearer: PING TOWNSEND ([id number])FIONA CHATTERJEE RITTMAN (SWRLAB)[address] [place] [address] [place] WBC (Bld) [#/Vol] 8.3 10*3/uL Normal 3.6-10.7 [facility] Comment on above: Performed By: #### L AB322, [id number] ####Pad Machine Offbearer: PING TOWNSEND ([id number])[facility]IC ZEPEDA (SWRLAB)[address] ED Nursing Noteon 12-15-2023 ED Nursing Note Patient to room 7 vi a [facility] for c/o a left foot ulcer, lower leg erythema, and a headache. Patient reports she has had her foot ulcer for a couple of months. V/S obtained, call light within reach. Normal [facility] ED Provider Noteon ED Provider Note EMERGENCY [...] Resource Strain: Low Risk (01/02/2020) Received from [facility], [facility] Overall Financial Resource Strain (CARDIA) Difficulty of Paying Living Expenses: Not very hard Food Insecurity: Food Insecurity Present (01/02/2020) Received from [facility] Hunger Vital Sign Worried About Running Out of Food in the Last Year: Sometimes true Ran Out of Food in the Last Year: Never true Transportation Needs: Unmet Transportation Needs (01/02/2020) Received from [facility] PRAPARE - Transportation Lack of Transportation (Medical): Yes Lack of Transportation (Non-Medical): Yes Physical Activity: Inactive (01/02/2020) Received from [facility] Exercise Vital Sign Days of Exercise per Week: 0 days Minutes of Exercise per Session: 0 min Stress: Stress Concern Present (01/02/2020) Received from [facility] [place] [facility] - Occupational Stress Questionnaire Feeling of Stress : Rather much Social Connections: Moderately Isolated (01/02/2020) Received from [facility] Social Connection and Isolatio (more content not included)... Normal [facility] ED Provider Note This patient was sig [...] about putting in her observation unit at [facility] for 24 hours of IV antibiotics versus discharging home with oral antibiotics. After shared decision-making she elected to go home. I do think that this is a safe plan. She lives in assisted living and they can help her with continuing to monitor her wound. Gave her strict return precautions and discharged in stable condition. Karen Gallardo MD 12/15/23 193 Normal [facility] ESR (Bld) [Velocity]Ordered By: Lexi Arce on 12-15-2023 Interpretation and review of laboratory results Normal [facility] Laboratory - Chemistry and C hemistry - challengeon 12-15-2023 CRP [Mass/Vol] 57.4 mg/L High NINF - 10.0 mg/L [facility] - Hematology and Cell countsOrdered By: Lexi Arce on 12-15-2023 ESR (Bld) [Velocity] 16 mm/h [facility] No Panel Informationon 12-14 Interpretation and review of laboratory results Abnormal [facility] SEDIMENTATION RATE, AUTOMATE Don 12-15-2023 SEDIMENTATION RATE, ERYTHROCYTE 16 mm/hr Normal 0-20 [facility] Comment on above: Performed By: #### L AB322, [id number] ####Pad Machine Offbearer: PING TOWNSEND ([id number])[facility] ([facility])[address] [place] [address] XR Foot - left 3 Viewson No obvious acute osteomyelitis. Report Dictated on Electronically Signed By: Gloria Darnell MD Electronically Signed Date/Time: 12/15/2023 7:01 PM EDT [facility] Patient Name: RANDOLPH [...] of the forefoot. Diffuse vascular calcification present. [facility] Gloria Darnell MD [...] Electronically Signed Date/Time: 12/15/2023 7:01 PM EDT [facility] Radiology Study observation (narrative) [facility] XR Foot - left 3 ViewsOrdere d By: Gloria Darnell on 12-15-2023 [facility] Work Phone: ED Nursing Noteon 07-20-2023 ED Nursing Note Physician's arrived; pt removed from urine collection device and pts own attends placed on pt per her request. Pts belongings in bag at bedside. Report to Physician's. Veronika Bae RN 07/20/23 0874 Normal [facility] ED Nursing Note Physician's Ambulanc e arrived with an ambulette/wheelchair van. Chasidy MCCRACKEN spoke with Physician's to inform them that the pt is non ambulatory and needed a stretcher. Physician's states they will have a stretcher here within the hour. Veronika Bae RN 07/20/23 0717 Normal [facility] ED Nursing Note Patient pressed call light to request pain medication. States pain is in shoulders and down the back from laying on the tables. notified Gifty Cornell RN 07/20/23 [address] [facility] [address] CERVICAL SPINE WO IV CONT Teresa 07-19-2023 CT CERVICAL SPINE WO IV CONTRAST Patient Name: RANDOLPH HUNTER : 1950 Exam Date/Time: 07/19/2023 22:56 Procedure: CT CERVICAL SPINE WO IV CONTRAST Ordering Provider: ANNA DOUGLAS Reason For Exam: cervical spine pain after fall. fails beninese CT CERVICAL SPINE: CLINICAL INDICATION: cervical spine pain after fall. fails beninese TECHNIQUE: Transaxial sequence through the cervical spine. [...] Electronically Signed Date/Time: 07/19/2023 11:18 PM EST [facility] CT Cervical spine WO contras ton 07-19-2023 No acute cervical sp ine fracture. Multilevel cervical spondylosis. Report Dictated on Electronically Signed By: Albina Newton MD Electronically Signed Date/Time: 07/19/2023 11:18 PM [facility] 1950 [id number] Exam Date/Time: 07/19/2023 22:56 Procedure: CT CERVICAL SPINE WO IV CONTRAST Ordering Provider: ANNA DOUGLAS Reason For Exam: cervical spine pain after fall. fails beninese CT CERVICAL SPINE: CLINICAL INDICATION: cervical spine pain after fall. fails beninese TECHNIQUE: Transaxial sequence through the cervical spine. [...] submandibular gland. Other: Lung apices are unremarkable. [facility] Albina Newton M D - 07/19/2023 Patient Name: RANDOLPH HUNTER : 1950 Exam Date/Time: 07/19/2023 22:56 Procedure: CT CERVICAL SPINE WO IV CONTRAST Ordering Provider: ANNA DOUGLAS Reason For Exam: cervical spine pain after fall. fails beninese CT CERVICAL SPINE: CLINICAL INDICATION: cervical spine pain after fall. fails beninese TECHNIQUE: Transaxial sequence through the cervical spine. [...] Electronically Signed Date/Time: 07/19/2023 11:18 PM EST [facility] Radiology Study observation (narrative) [facility] CT Cervical spine WO contras tOrdered By: Albina Newton on 07-19-2023 [facility] Phone: CT HEAD WO IV CONTRASTon CT [...] Signed Date/Time: 07/19/2023 11:02 PM EST Normal [facility] CT Head WO contraston 2023 No acute intracrania l abnormality. Mild diffuse cortical volume loss. Report Dictated on Electronically Signed By: Albina Newton MD Electronically Signed Date/Time: 07/19/2023 11:02 PM [facility] Patient Name: [...] Normal Calvarium and skull base: Normal [facility] Albina Newton M D - 07/19/2023 Patient Name: RANDOLPH [facility] 1950 [id number] Exam Date/Time: 07/19/2023 22:58 Procedure: CT HEAD [...] Electronically Signed Date/Time: 07/19/2023 11:02 PM EST [facility] Radiology Study observation (narrative) [facility] CT Head WO contrastOrdered B y: Albina Newton on 07-19-2023 [facility] Phone: CT PELVIS WO IV CONTRASTon 0 [...] MD Electronically Signed Date/Time: 07/19/2023 11:27 PM [facility] Normal [facility] CT Pelvis WO contraston 06-23 No acute fracture. Nonacute findings, as above. Report Dictated on Electronically Signed By: Albina Newton MD Electronically Signed Date/Time: 07/19/2023 11:27 PM [facility] Patient Name: [...] sizable hematoma in the soft tissues. [facility] Albina Newton M [...] Electronically Signed Date/Time: 07/19/2023 11:27 PM EST [facility] Radiology Study observation (narrative) [facility] CT Pelvis WO contrastOrdered By: Albina Newton on 07-19-2023 [facility] Work Phone: ED Nursing Noteon 07-19-2023 ED Nursing Note Report given to Shubham lopes RN & Chasidy RN. Patient still in radiology. Pia Caraballo RN 07/19/23 8781 Normal [facility] ED Nursing Note Dispo per imaging :) Chasidy Fernandez RN 07/19/23 1281 Normal [facility] ED Nursing Note Pt placed up for dis charge. No discharge paperwork complete at this time. Once orders are complete and discharge paperwork complete by ER DR Pt will be discharged. Chasidy Fernandez RN 07/19/23 4594 Normal [facility] ED Nursing Note This RN requested or ders from ER . Chasidy Fernandez RN 07/19/232025 Normal [facility] ED Nursing Note Patient is here for right hip pain. She was transferring to the toilet when she fell. She resides at [address] She currently is working with a physical therapist and is in a wheelchair. Patient hooked up to [employer] due to incontinence. She also has right knee bruising that is from her repeatedly hitting it on her wheelchair. She denies hitting her head or neck during fall. She is on coumadin. Call light within reach. Normal [facility] ED Provider Noteon ED Provider Note EMERGENCY [...] Source Patient (more content not included)... Normal [facility] No Panel Informationon 07-19 1. Right knee arthro plasty in adequate alignment 2. Unremarkable right hip 3. Osteoarthritis of the left knee Report Dictated on Electronically Signed By: Phan Sepulveda MD Electronically Signed Date/Time: 07/19/2023 11:53 PM EST [facility] No Panel InformationOrdered By: Phan Sepulveda on 07-19-2023 Create Work Phone: XR Femur - right 2 [...] calcifications as well as the popliteal fossa. [facility] Phan Sepulveda MD - 07/19/2023 Patient [...] Electronically Signed Date/Time: 07/19/2023 11:53 PM EST Create Radiology Study observation (narrative) Create XR Knee - left 3 Viewson Patient [...] as well as the popliteal fossa. [facility] Phan Sepulveda MD [...] Electronically Signed Date/Time: 07/19/2023 11:53 PM EST [facility] Radiology Study observation (narrative) Create XR Knee - right 3 Viewson Patient [...] as well as the popliteal fossa. [facility] Phan Sepulveda MD [...] Electronically Signed Date/Time: 07/19/2023 11:53 PM EST [facility] Radiology Study observation (narrative) [facility] ECG 12-LEADon 09-07-2022 ECG 12-LEAD IMPRESSION: Sinus rhythm Borderline left axis deviation Probable lateral infarct, old Abnrm R prog, consider ASMI or lead placement Electronically Signed On 09-07-2022 11:08:52 EDT by Sai Melchor Normal [facility] ABO and Rh group Confirm Nom (Bld)on 09-06-2022 ABO group Nom (Bld) A [facility] D Ag Ql (RBC) Negative [facility] Basic metabolic 1998 panelon 09-06-2022 Anion gap [Moles/Vol] 5 mmol/L 3 - 13 mmol/L [facility] Calcium [Mass/Vol] 9.2 mg/dL 8.4 - 10. 4 mg/dL [facility] Chloride [Moles/Vol] 104 mmol/L 98 - 10 7 mmol/L [facility] CO2 [Moles/Vol] 30 mmol/L 22 - 30 mmol/L [facility] Creatinine [Mass/Vol] 0.86 mg/dL 0.52 - 1.04 mg/dL [facility] GFR/1.73 sq M.predicted MDRD (S/P/Bld) [Vol rate/Area] 72.3 mL/min/{1.73_m2} - PINF [facility] Comment on above: Calculation based on the Chronic Kidney Disease Epidemiology Collaboration (CKD-EPI) equation refit without adjustment for race Glucose [Mass/Vol] 144 mg/dL High 70 - 100 mg/dL [facility] Interpretation and review of laboratory results Abnormal [facility] Potassium [Moles/Vol] 5.4 mmol/L High 3.5 - 5.1 mmol/L [facility] Sodium [Moles/Vol] 139 mmol/L 135 - 145 mmol/L [facility] Urea nitrogen [Mass/Vol] 26 mg/dL High 7 - 17 mg/dL [facility] Slightly Hemolyzed. Interpret Potassium with caution. [facility] Blood type and Crossmatch pa shaheen (Bld)on 09-06-2022 ABO group Nom (Bld) A [facility] Blood group antibody screen GEL Ql Negative [facility] D Ag Ql (RBC) Negative [facility] CBC W Auto Differential pane l (Bld)on 09-06-2022 Basophils (Bld) [#/Vol] 0.0 10*3/uL 0.0 - 0.2 10*3/uL [facility] Basophils/100 WBC (Bld) 0.5 % 0.0 - 2.0 % [facility] Eosinophils (Bld) [#/Vol] 0.2 10*3/uL 0.0 - 0.5 10*3/uL [facility] Eosinophils/100 WBC (Bld) 3.3 % 1.0 - 6.0 % [facility] Erythrocyte distribution width (RBC) [Ratio] 14.5 % 11.5 - 14.5 % [facility] Hematocrit (Bld) [Volume fraction] 40.1 % 35.0 - 47.0 % [facility] Hemoglobin (Bld) [Mass/Vol] 12.9 g/dL 11.7 - 16.0 g/dL [facility] Interpretation and review of laboratory results Normal [facility] Lymphocytes (Bld) [#/Vol] 1.6 10*3/uL 1.0 - 4.3 10*3/uL [facility] Lymphocytes/100 WBC (Bld) 24.7 % 20.0 - 40.0 % [facility] MCH (RBC) [Entitic mass] 30.6 pg 26.0 - 34.0 pg [facility] MCHC (RBC) [Mass/Vol] 32.2 % 32.0 - 36.0 % [facility] MCV (RBC) [Entitic vol] 95.2 fL 80.0 - 98.0 fL [facility] Monocytes (Bld) [#/Vol] 0.5 10*3/uL 0.0 - 0.8 10*3/uL [facility] Monocytes/100 WBC (Bld) 7.9 % 2.0 - 10.0 % [facility] Neutrophils (Bld) [#/Vol] 4.1 10*3/uL 1.8 - 7.0 10*3/uL [facility] Neutrophils/100 WBC (Bld) 63.6 % 40.0 - 80.0 % [facility] Nucleated RBC/100 WBC (Bld) [Ratio] 0.1 % [facility] Platelet mean volume (Bld) [Entitic vol] 8.7 fL 7.4 - 12.4 fL [facility] Platelets (Bld) [#/Vol] 150 10*3/uL 140 - 440 10*3/uL [facility] RBC (Bld) [#/Vol] 4.21 10*6/uL 3.8 - 5.20 10*6/uL [facility] WBC (Bld) [#/Vol] 6.4 10*3/uL 3.6 - 10.7 10*3/uL [facility] CT CERVICAL SPINE WO IV [...] Electronically Signed Date/Time: 09/06/2022 2:24 AM EDT [facility] CT Cervical spine WO contras ton 09-06-2022 No cervical spine fr acture. Report Dictated on Workstation: [employer] Electronically Signed By: Tiago Charles Electronically Signed Date/Time: 09/06/2022 2:24 AM EDT [facility] Patient Name: PATSY MCFARLANE : 1950 [...] soft tissues and lung apices are unremarkable. [facility] Tiago Charles MD [...] Electronically Signed Date/Time: 09/06/2022 2:24 AM EDT [facility] CT HEAD WO IV CONTRASTon CT HEAD WO IV CONTRAST [facility] Name[facility] 1950 [id number] Exam Date/Time: 09/06/2022 08:26 Procedure: CT HEAD [...] Electronically Signed Date/Time: 09/06/2022 8:39 AM EDT [facility] CT HEAD WO IV CONTRAST Patient [...] Electronically Signed Date/Time: 09/06/2022 2:16 AM EDT [facility] CT Head WO contraston [address] evidence of ac radhika intracranial abnormality, other than mild acute sphenoid sinusitis. Report Dictated on Electronically Signed By: Gloria Darnell Electronically Signed Date/Time: 09/06/2022 8:39 AM EDT [facility] Patient Name: DANIEL [...] distal vertebral arteries is also noted. [facility] Gloria Darnell MD - 09/06/2022 Patient Name: PATSY JUAN [facility] 1950 [id number] Exam Date/Time: 09/06/2022 08:26 Procedure: CT HEAD [...] Electronically Signed Date/Time: 09/06/2022 8:39 AM EDT [facility] Radiology Study observation (narrative) [facility] No acute intracrania l hemorrhage or mass effect. Report Dictated on Electronically Signed By: Tiago Charles Electronically Signed Date/Time: 09/06/2022 2:16 AM EDT [facility] Patient Name: DANIEL [...] cells are well aerated. Calvarium is unremarkable. [facility] Tiago Charles MD [...] Electronically Signed Date/Time: 09/06/2022 2:16 AM EDT [facility] CT Head WO contrastOrdered B y: Gloria Mann on 09-06-2022 [facility] Work Phone: ED Nursing Noteon 09-06-2022 ED Nursing Note RN called back from Residence for report after patient left. This RN updated RN. No questions or concerns Lucy Jones RN 09/06/22 1115 Normal [facility] ED Nursing Note This RN attempted re port at [facility] for patient. RN's busy, entry level project coordinator took RN name and number to return call for report if wanted. Lucy Jones RN 09/06/22 1018 Normal [facility] ED Nursing Note DM ETA 20-30 min (10 20-1030) Lucy Jones RN 09/06/22 0953 Normal [facility] ED Nursing Note Patient resting with eyes closed. Respirations even and unlabored. RN called about work order for call light / panel. Will be there soon to fix. Lucy Jones RN 09/06/22 0944 Normal [facility] ED Nursing Note Pt back in room Lucy Jones RN 09/06/22 0832 Normal [facility] ED Nursing Note Pt at CT Lucy Jones RN 09/06/22 0826 [facility] ED Nursing Note Patient yelling [...] this time Lucy Jones, NAWAF 09/06/22 0739 [facility] ED Nursing Note Pt to x-ray in stabl e condition. Bárbara Hogan RN 09/06/22225 [facility] ED Nursing Note Report of to bárbara Younger RN 09/06/22220 [facility] ED Nursing Note Bed: 23 Expected date: Expected time: Means of arrival: Comments: SX TEAM Aaron Wallace RN 09/06/22220 [facility] ED Provider Noteon ED Provider Note Emergency Department Encounter Location: [facility] EMERGENCY DEPT Patient: Patsy Juan [...] 445 ms QTC Interval 457 ms P [place] 49 degrees QRS [place] -29 degrees T Wave [place] 11 degrees CO Interval [address] head wo IV [...] Result Upper pelvis is excluded from the xsptw-ta-uonn. No fracture or dislocation of the imaged [...] female whose (more content not included)... Normal [facility] ED Provider Note Emergency Department Encounter Location: [facility] EMERGENCY DEPT Patient: Patsy Juan [...] 445 ms QTC Interval 457 ms P [place] 49 degrees QRS [place] -29 degrees T Wave [place] 11 degrees CO Interval 149 ms XR shoulder 2+ views [...] Result Upper pelvis is excluded from the lloqx-em-ktvm. No fracture or dislocation of the imaged [...] Final Impression 1. (more content not included)... [facility] ED Provider Note [facility] EMERGENCY DEPT EMERGENCY DEPARTMENT ENCOUNTER [...] A Ant (more content not included)... Normal [facility] Ethanol (Bld) [Mass/Vol]on 0 09-06-2022 Ethanol [Mass/Vol] g/dL 0.000 - 0.010 g/dL [facility] Laboratory - Chemistry and C hemistry - challengeon 09-06-2022 Troponin I.cardiac [Mass/Vol] ng/mL 0.000 - 0.034 ng/mL [facility] Magnesium [Mass/Vol] 1.8 mg/dL 1.6 - 2 .3 mg/dL [facility] Lactate [Moles/Vol] 1.4 mmol/L 0.7 - 2. 0 mmol/L [facility] - Coagulationon 0 09-06-2022 aPTT Coag (PPP) [Time] 33.8 s High 20.0 - 30.5 s [facility] INR Coag (PPP) [Relative time] 1.8 {INR} High 0.9 - 1.1 [facility] Comment on above: Recommended Anticoag [...] s High 9.0 - 1 2.0 s [facility] - Drug toxicology Ordered By: Harper Estes on 09-06-2022 Amphetamines Screen method >1000 ng/mL Ql (U) Negative [facility] Barbiturates Screen method >200 ng/mL Ql (U) Negative [facility] Benzodiazepines Ql (U) Negative [facility] Methadone Screen Ql (U) Negative [facility] Opiates Screen Ql (U) Positive [facility] oxyCODONE Ql (U) Negative [facility] Phencyclidine Ql (U) Negative [facility] Magnesium [Mass/Vol]on 09-06 .01 [facility] No Panel InformationOrdered By: Harper Estes on 09-06-2022 COCAINE METAB. SCREEN Negative [facility] The expected value f or all [...] is needed, request confirmation under separate order. [facility] No Panel Informationon 09-06 Interpretation and review of laboratory results Normal [facility] Interpretation and review of laboratory results Normal [facility] Interpretation and review of laboratory results Abnormal [facility] Radiology Study observation (narrative) [facility] Phosphate [Moles/Vol]on 08-20 Phosphate [Mass/Vol] 3.9 mg/dL 2.5 - 4 .5 mg/dL [facility] Slightly Hemolyzed. Interpret Phosphorus with caution. [facility] Progress Noteon 09-06-2022 Progress Note Department of Trauma / Critical Care Tertiary Survey Date of Trauma: 09/06/2022 1:36 AM MARIANELA/HPI: 72 y.o. female status post fall from standing. The incident happened around 0120 on 09/06/22 at [facility]. When the event happened the [...] identified. There (more content not included)... Normal [facility] Troponin I.cardiac [Mass/Vol ]on 09-06-2022 Interpretation and review of laboratory results Normal [facility] Patients with high l evels of Biotin oral intake (ie >5 mg/day) may have falsely decreased Troponin levels. [facility] XR Chest Single viewon 09-06 No focal consolidati on or pulmonary edema. Report Dictated on Electronically Signed By: Tiago Charles Electronically Signed Date/Time: 09/06/2022 2:12 AM EDT [facility] [facility] Patient Name: DANIEL DIAZ ECHO : 1950 Exam Date/Time: 09/06/2022 02:06 Procedure: XR CHEST 1 VIEW Ordering Provider: HUTSON RICHARD Reason For Exam: TRAUMA PORTABLE CHEST CLINICAL INDICATION: Pain, trauma TECHNIQUE: Portable AP COMPARISON: None FINDINGS: No focal consolidation or pulmonary edema. No pleural effusions or pneumothorax. The cardiac and mediastinal silhouettes are normal. Degenerative change of the thoracic spine is noted. [facility] Tiago Charles MD - Patient Name: PTASY JUAN : 1950 Exam Date/Time: 09/06/2022 02:06 [...] or pulmonary edema. Report Dictated on Workstation: [employer] Electronically Signed By: Tiago Charles Electronically Signed Date/Time: 09/06/2022 2:12 AM EDT Create Radiology Study observation (narrative) Create XR Chest Single viewOrdered By: Tiago Charles on 09-06-2022 Create Work Phone: XR Pelvis 1 or 2 Viewson Upper pelvis is excl uded from the wosvx-cb-jzws. No fracture or dislocation of the imaged pelvis. Report Dictated on Electronically Signed By: Tiago Charles Electronically Signed Date/Time: 09/06/2022 2:12 AM EDT [facility] Patient Name: DANIEL DIAZ ECHO : 1950 Exam Date/Time: 09/06/2022 02:07 Procedure: XR PELVIS 1-2 VIEWS Ordering Provider: HUTSON RICHARD Reason For Exam: TRAUMA PELVIS: CLINICAL INDICATION: Pain, trauma. TECHNIQUE: AP. Technical note: Upper pelvis is excluded from the rlkqh-ji-hwtt. COMPARISON: None. FINDINGS: There is no evidence for fracture or dislocation. The hips joints are unremarkable. The imaged sacroiliac joints are normal. No bone lesion is identified. There is no soft tissue abnormality. Surgical clips project over the right groin. [facility] Tiago Charles MD - Patient Name: PATSY JUAN : 1950 Exam Date/Time: 09/06/2022 02:07 Procedure: XR PELVIS 1-2 VIEWS Ordering Provider: HUTSON RICHARD Reason For Exam: TRAUMA PELVIS: CLINICAL INDICATION: Pain, trauma. TECHNIQUE: AP. Technical note: Upper pelvis is excluded from the hjzqx-dj-dgfq. COMPARISON: None. FINDINGS: There is no evidence for fracture or dislocation. The hips joints are unremarkable. The imaged sacroiliac joints are normal. No bone lesion is identified. There is no soft tissue abnormality. Surgical clips project over the right groin. IMPRESSION: Upper pelvis is excluded from the psnlu-bx-enup. No fracture or dislocation of the imaged pelvis. Report Dictated on Electronically Signed By: Tiago Charles Electronically Signed Date/Time: 09/06/2022 2:12 AM EDT [facility] Radiology Study observation (narrative) Create XR Shoulder - left 2 Viewson 09-06-2022 No fracture or dislo cation. Report Dictated on Electronically Signed By: Tiago Charles Electronically Signed Date/Time: 09/06/2022 3:11 AM EDT [employer] [facility] Patient Name: PATSY MCFARLANE : 1950 [...] identified. There is no soft tissue abnormality. [facility] Tiago Charles MD - Patient Name: [...] Electronically Signed Date/Time: 09/06/2022 3:11 AM EDT [facility] Radiology Study observation (narrative) [facility] XR Shoulder - right 2 Viewso n 09-06-2022 No fracture or dislo cation. Report Dictated on Electronically Signed By: Tiago Charles Electronically Signed Date/Time: 09/06/2022 2:42 AM EDT [employer] [facility] Patient Name: PATSY MCFARLANE : 1950 [...] identified. There is no soft tissue abnormality. [facility] Tiago Charles MD - Patient [...] Electronically Signed Date/Time: 09/06/2022 2:42 AM EDT [facility] Radiology Study observation (narrative) [facility] CULTURE BLOODon 03-14-2022 Microscopic examination of blood, culture CULTURE BLOOD --> Status: F [employer] testing is not routinely performed on Gram positive bacilli. If a Listeria infection is highly suspected, contact the Microbiology laboratory ([phone]). positive bacilli. If a Listeria infection is highly suspected, contact the Microbiology laboratory ([phone]). 1 Organism Propionibacterium acnes Isolated: Contamination likely unless additional blood culture sets are found to be positive with the same organism. Normal [facility] Comment on above: Performed By: #### C /BLD #### [facility] [address] [place] [address] CULTURE BLOOD (Two)on 2021 Microscopic examination of blood, culture CULTURE BLOOD (Two) --> Status: F No growth at 5 days. Normal [facility] Comment on above: Performed By: #### P T/AP, BMP3, HEMDF #### [facility] [address] [place] [address] GASTROINTESTINAL PCR PANELon 03-12-2022 GASTROINTESTINAL PCR PANEL GASTROINTESTINAL PCR PANEL --> Status: F NEGATIVE: No targets were detected by the [employer] Gastrointestinal PCR Panel. _ The [employer] Gastrointestinal PCR Panel can detect the following [...] Astrovirus, Norovirus GI/GII, Rotavirus A, Sapovirus Normal [facility] Comment on above: Performed By: #### B FGI #### [address] [id number] Gastrointestinal Panel by CEDRICK [facility] 03-12-2022 Gastrointestinal PCR Panel NEGATIVE: No targets were detected by the [employer] Gastrointestinal PCR Panel. _ The [employer] Gastrointestinal PCR Panel can detect the following targets: Campylobacter, Plesiomonas shigelloides, Salmonella, Vibrio species, Vibrio cholerae, Yersinia enterocolitica, Shiga toxin-producing E coli (STEC) including E coli O157, Enterotoxigenic E coli (ETEC), Shigella/Enteroinvasive E coli (EIEC), Cryptosporidium, Cyclospora cayetanensis, Entamoeba histolytica, Giardia lamblia, Adenovirus F 40/41, Astrovirus, Norovirus GI/GII, Rotavirus A, Sapovirus [facility] Test Performed by [id number] [place] [address] LAB [facility] Glucose,Bedsideon 03-12-2022 Glucose [Mass/Vol] 177 mg/dL High 70-100 [facility] Comment on above: Result Comment: Test performed by glucose meter. Results may be 10%-15% lower than serum/plasma values. (CLIA ID [id number]) Performed By: #### B GLU #### [facility] [address] [place] [address] Glucose [Mass/Vol] 130 mg/dL High 70-100 [facility] Comment on above: Result Comment: Test performed by glucose meter. Results may be 10%-15% lower than serum/plasma values. (CLIA ID [id number]) Performed By: #### B GLU #### [facility] [address] [place] [address] Glucose [Mass/Vol] 141 mg/dL High 70-100 [facility] Comment on above: Result Comment: Test performed by glucose meter. Results may be 10%-15% lower than serum/plasma values. (CLIA ID [id number]) Performed By: #### P T/AP, BMP3, HEMDF #### [facility] [address] [place] [address] Glucose [Mass/Vol] 120 mg/dL High 70-100 [facility] Comment on above: Result Comment: Test performed by glucose meter. Results may be 10%-15% lower than serum/plasma values. (CLIA ID [id number]) Performed By: #### B GLU #### [facility] [address] [place] [address] POCT GlucoseOrdered By: Hansel Connell on 03-12-2022 Glucose [Mass/Vol] 177 mg/dL High 70 - 100 mg/dL [facility] Work Phone: Comment on above: Test performed by gl ucose meter. Results may be 10%-15% lower than serum/plasma values. (CLIA ID [id number]) Interpretation and review of laboratory results Abnormal [facility] Work Phone: [facility] Work Phone: POCT Glucoseon 03-12-2022 Test Performed by [facility], [address] [place], [place] [id number] [place] [address] LAB Glucose [Mass/Vol] 130 mg/dL High 70 - 100 mg/dL [facility] Comment on above: Test performed by gl ucose meter. Results may be 10%-15% lower than serum/plasma values. (CLIA ID [id number]) Interpretation and review of laboratory results Abnormal [facility] Test Performed by [facility], [address] [place], [place] [id number] [place] [address] LAB [facility] Glucose [Mass/Vol] 141 mg/dL High 70 - 100 mg/dL [facility] Comment on above: Test performed by gl ucose meter. Results may be 10%-15% lower than serum/plasma values. (CLIA ID [id number]) Interpretation and review of laboratory results Abnormal [facility] Test Performed by [facility], [address] [place], [place] [id number] [place] [address] LAB [facility] Glucose [Mass/Vol] 120 mg/dL High 70 - 100 mg/dL [facility] Work Phone: Comment on above: Test performed by gl ucose meter. Results may be 10%-15% lower than serum/plasma values. (CLIA ID [id number]) Interpretation and review of laboratory results Abnormal [facility] Work Phone: Test Performed by [facility] Region, [address] [place], [place] [id number] [place] [address] LAB [facility] Work Phone: Prothrombin Timeon INR 3.6 High 0.9-1.1 [facility] Comment on above: Result Comment: Rajiv [...] By: #### P T/AP, BMP3, HEMDF #### [facility] [address] [place] [address] PT Coag (PPP) [Time] 36.1 s High 9.0-12.0 [facility] Comment on above: Result Comment: . Performed By: #### P T/AP, BMP3, HEMDF #### [facility] [address] [place] [address] Protime-INRon 03-12-2022 INR Coag (Bld) [Relative time] 3.6 {INR} High [facility] Comment on above: Recommended Anticoag ulant [...] Interpretation and review of laboratory results Abnormal [facility] PT Coag (PPP) [Time] 36.1 s High 9 - 12 s [facility] Comment on above: . Test Performed by [facility], [address] [place], [place] [id number] [place] [address] LAB [facility] Basic Metabolic Panelon 2 -2021 Anion gap [Moles/Vol] 1 mmol/L Low 3-13 [facility] Comment on above: Performed By: #### P T/AP, BMP3, HEMDF #### [facility] [address] [place] [address] Calcium [Mass/Vol] 8.1 mg/dL Low 8.4-10.4 [facility] Comment on above: Performed By: #### P T/AP, BMP3, HEMDF #### [facility] [address] [place] [address] CO2 [Moles/Vol] 30 mmol/L Normal 22-30 [facility] Comment on above: Performed By: #### P T/AP, BMP3, HEMDF #### [facility] [address] [place] [address] Creatinine [Mass/Vol] 0.70 mg/dL Normal 0.52-1.25 [facility] Comment on above: Performed By: #### P T/AP, BMP3, HEMDF #### [facility] [address] [place] [address] GFR/1.73 sq M.predicted among blacks MDRD (S/P/Bld) [Vol rate/Area] mL/min/{1.73_m2} Normal >60 [facility] Comment on above: Performed By: #### P T/AP, BMP3, HEMDF #### [facility] [address] [place] [address] GFR/1.73 sq M.predicted among non-blacks MDRD (S/P/Bld) [Vol rate/Area] 87.4 mL/min/{1.73_m2} Normal >60 [facility] Comment on above: Result Comment: KDIG [...] By: #### P T/AP, BMP3, HEMDF #### [facility] [address] [place] [address] Glucose [Mass/Vol] 118 mg/dL High 70-100 [facility] Comment on above: Performed By: #### P T/AP, BMP3, HEMDF #### [facility] [address] [place] [address] Urea nitrogen [Mass/Vol] 8 mg/dL Low 9-20 [facility] Comment on above: Performed By: #### P T/AP, BMP3, HEMDF #### [facility] [address] [place] [address] Chloride [Moles/Vol] 106 mmol/L Normal 98-107 [facility] Comment on above: Performed By: #### P T/AP, BMP3, HEMDF #### [facility] [address] [place] [address] Potassium [Moles/Vol] 4.1 mmol/L Normal 3.5-5.1 [facility] Comment on above: Performed By: #### P T/CLAIRE RENE HEMFRAN #### [facility] [address] [place] [address] Sodium [Moles/Vol] 137 mmol/L Normal 135-145 [facility] Comment on above: Performed By: #### P T/CLAIRE RENE, HEMDF #### [facility] [address] [place] [address] Anion gap [Moles/Vol] 1 mmol/L Low 3 - 13 mmol/L [facility] Calcium [Mass/Vol] 8.1 mg/dL Low 8.4 - 10. 4 mg/dL [facility] Chloride [Moles/Vol] 106 mmol/L 98 - 10 7 mmol/L [facility] CO2 [Moles/Vol] 30 mmol/L 22 - 30 mmol/L [facility] Creatinine [Mass/Vol] 0.7 mg/dL 0.52 - 1.25 mg/dL [facility] eGFR mL/min 60 - P INF mL/min [facility] EGFR IF NonAfrican Slovak 87.4 mL/min 60 - PINF mL/min [facility] Comment on above: KDIGO guidelines pro vide [...] - 20 mg/dL [facility] Test Performed by [facility], [address], [place], [place] [id number] [place] [address] LAB [facility] CBC with Auto Differentialon 03-11-2022 [...] [Mass/Vol] 11.7 g/dL 11.7 - 16 g/dL [facility] Interpretation and review of laboratory results Abnormal [...] - 10.7 10*3/uL [facility] Test Performed by [facility], [address], [place], [place] [address] [facility] LAB [facility] CULTURE URINEon 03-11-2022 CULTURE URINE 1 Organism [...] 1 S Amikacin(NORMA) <= 2 S Normal [facility] Comment on above: Performed By: #### P T/AP, BMP3, HEMDF #### [facility] [address] [place] [address] Culture, Urineon 03-11-2022 Bacteria identified Cx Nom (U) Klebsiella pneumoniae ss. pneumoniae Abnormal [facility] Bacteria identified Cx Nom (U) >100,000 CFU/ml [facility] Interpretation and review of laboratory results Abnormal [facility] Test Performed by [facility], [facility] [place] [address] [facility] LAB [facility] Glucose,Bedsideon 03-11-2022 Glucose [Mass/Vol] 140 mg/dL High 70-100 [facility] Comment on above: Result Comment: Test performed by glucose meter. Results may be 10%-15% lower than serum/plasma values. (CLIA ID [id number]) Performed By: #### P T/AP, BMP3, HEMDF #### [facility] [address] [place] [address] Glucose [Mass/Vol] 121 mg/dL High [address] [facility] Comment on above: Result Comment: Test performed by glucose meter. Results may be 10%-15% lower than serum/plasma values. (CLIA ID [id number]) Performed By: #### P T/AP, BMP3, HEMDF #### [facility] [address] [facility] [place] [address] Glucose [Mass/Vol] 127 mg/dL High 70-100 [facility] Comment on above: Result Comment: Test performed by glucose meter. Results may be 10%-15% lower than serum/plasma values. (CLIA ID [id number]) Performed By: #### P T/AP, BMP3, HEMDF #### [facility] [address] [place] [address] Glucose [Mass/Vol] 139 mg/dL [facility] 70-100 [facility] Comment on above: Result Comment: Test performed by glucose meter. Results may be 10%-15% lower than serum/plasma values. (CLIA ID [id number]) Performed By: #### P T/AP, BMP3, HEMDF #### [facility] [address] [place] [address] Hemogram w/ Autodiffon 03-11 Abs Baso Cnt 0.0 10*3/uL Normal 0.0-0.2 [facility] Comment on above: Performed By: #### P T/AP, BMP3, HEMDF #### [facility] [address] [place] [address] Abs Neutrophile Cnt 2.9 10*3/uL Normal 1.8-7.0 [facility] Comment on above: Performed By: #### P T/AP, BMP3, HEMDF #### [facility] [address] [place] [address] Basophils/100 WBC (Bld) 0.6 % Normal 0.0-2.0 [facility] Comment on above: Performed By: #### P T/AP, BMP3, HEMDF #### [facility] [address] [place] [address] Eosinophils (Bld) [#/Vol] 0.2 10*3/uL Normal 0.0-0.5 [facility] Comment on above: Performed By: #### P T/AP, BMP3, HEMDF #### [facility] [address] [place] [address] Eosinophils/100 WBC (Bld) 5.3 % Normal 1.0-6.0 [facility] Comment on above: Performed By: #### P T/AP, BMP3, HEMDF #### [facility] [address] [place] [address] Erythrocyte distribution width (RBC) [Ratio] 13.8 % Normal 11.5-14.5 [facility] Comment on above: Performed By: #### P T/AP, BMP3, HEMDF #### [facility] [address] [place] [address] Granulocytes/100 WBC (Bld) 62.2 % Normal 40.0-80.0 [facility] Comment on above: Performed By: #### P T/AP, BMP3, HEMDF #### [facility] [address] [place] [address] Hematocrit (Bld) [Volume fraction] 32.8 % Low 35.0-47.0 [facility] Comment on above: Performed By: #### P T/AP, BMP3, HEMDF #### [facility] [address] [place] [address] Hemoglobin (Bld) [Mass/Vol] 11.7 g/dL Normal 11.7-16.0 [facility] Comment on above: Performed By: #### P T/AP, BMP3, HEMDF #### [facility] [address] [place] [address] Lymphocytes (Bld) [#/Vol] 1.0 10*3/uL Normal 1.0-4.3 [facility] Comment on above: Performed By: #### P T/AP, BMP3, HEMDF #### [facility] [address] [place] [address] Lymphocytes/100 WBC (Bld) 22.5 % Normal 20.0-40.0 [facility] Comment on above: Performed By: #### P T/AP, BMP3, HEMDF #### [facility] [address] [place] [address] MCH (RBC) [Entitic mass] 32.1 pg Normal 26.0-34.0 [facility] Comment on above: Performed By: #### P T/AP, BMP3, HEMDF #### [facility] [address] [place] [address] MCHC 35.6 % Normal 32.0-36.0 [facility] Comment on above: Performed By: #### P T/AP, BMP3, HEMDF #### [facility] [address] [place] [address] MCV (RBC) [Entitic vol] 90.2 fL Normal 79.0-98.0 [facility] Comment on above: Performed By: #### P T/AP, BMP3, HEMDF #### [facility] [address] [place] [address] Monocytes (Bld) [#/Vol] 0.4 10*3/uL Normal 0.0-0.8 [facility] Comment on above: Performed By: #### P T/AP, BMP3, HEMDF #### [facility] [address] [place] [address] Monocytes/100 WBC (Bld) 9.4 % Normal 2.0-10.0 [facility] Comment on above: Performed By: #### P T/AP, BMP3, HEMDF #### [facility] [address] [place] [address] Platelet mean volume (Bld) [Entitic vol] 8.2 fL Normal 7.4-12.4 [facility] Comment on above: Result Comment: MPV is a calculated measurement using platelet volume ratio. Performed By: #### P T/AP, BMP3, HEMDF #### [facility] [address] [place] [address] Platelets (Bld) [#/Vol] 128 10*3/uL Low 140-440 [facility] Comment on above: Performed By: #### P T/AP, BMP3, HEMDF #### [facility] [address] [place] [address] RBC (Bld) [#/Vol] 3.63 10*6/uL Low 3.80-5.20 [facility] Comment on above: Performed By: #### P T/AP, BMP3, HEMDF #### [facility] [address] [place] [address] WBC (Bld) [#/Vol] 4.6 10*3/uL Normal 3.6-10.7 [facility] Comment on above: Performed By: #### P T/AP, BMP3, HEMDF #### [facility] [address] [place] [address] POCT COVID-19, Antigenon SARS-CoV-2 Nucleocapsid Antigen Negative Negative NA [facility] Comment on above: A negative result does not rule out the possibility of SARS-CoV-2 infection. NAAT-based methods should be considered for symptomatic patients presenting greater than seven days after onset of symptoms. Method: Lateral flow immunoassay. Fact sheets for healthcare providers and patients can be found at the following sites: https://www.fda.gov/media/061497/download https://www.fda.gov/media/181121/download Test Performed by [facility], [address] [place], [place] [address] [facility] LAB [facility] POCT GlucoseOrdered By: Pedro Luis Mcleod on 03-11-2022 Glucose [Mass/Vol] 140 mg/dL High 70 - 100 mg/dL [facility] Comment on above: Test performed by gl ucose meter. Results may be 10%-15% lower than serum/plasma values. (CLIA ID [id number]) Interpretation and review of laboratory results Abnormal [facility] POCT Glucoseon 03-11-2022 Test Performed by [facility], [address] LAB Glucose [Mass/Vol] 121 mg/dL High 70 - 100 mg/dL [facility] Work Phone: Comment on above: Test performed by gl ucose meter. Results may be 10%-15% lower than serum/plasma values. (CLIA ID [id number]) Interpretation and review of laboratory results Abnormal [facility] Work Phone: Test Performed by [facility], [address] LAB [facility] Work Phone: Test Performed by [facility], [address] LAB Glucose [Mass/Vol] 139 mg/dL High 70 - 100 mg/dL [facility] Work Phone: Comment on above: Test performed by gl ucose meter. Results may be 10%-15% lower than serum/plasma values. (CLIA ID [id number]) Interpretation and review of laboratory results Abnormal [facility] Work Phone: Test Performed by [facility], [address] LAB [facility] Work Phone: POCT GlucoseOrdered By: Mil Marie on 03-11-2022 Glucose [Mass/Vol] 127 mg/dL High 70 - 100 mg/dL [facility] Work Phone: Comment on above: Test performed by gl ucose meter. Results may be 10%-15% lower than serum/plasma values. (CLIA ID [id number]) Interpretation and review of laboratory results Abnormal [facility] Work Phone: [facility] Work Phone: PROTIME/INR & PTTon 03-11-20 22 INR Coag (Bld) [Relative time] 5.0 {INR} Critically high [facility] Comment on above: Recommended Anticoag ulant [...] laboratory results Abnormal [facility] Test Performed by [facility], [address] [place], [place] [id number] [place] [address] LAB [facility] Protime AND APTTon 2 INR 5.0 Critically high 0.9-1.1 [facility] Comment on above: Result Comment: Rajiv [...] By: #### P T/CLAIRE RENE, HEMDF #### [facility] [address] [place] [address] aPTT Coag (Bld) [Time] 44.1 s High 20.0-30.5 [facility] Comment on above: NOTE: The therapeuti c time for Heparin anticoagulation, based on Xa activity inhibition, is an APTT of 46-80 seconds. Result Comment: NOTE : The therapeutic time for Heparin anticoagulation, based on Xa activity inhibition, is an APTT of 46-80 seconds. Performed By: #### P T/AP BMPVi, HEMDF #### [facility] [address] [place] [address] PT Coag (PPP) [Time] 48.7 s High 9.0-12.0 [facility] Comment on above: . Result Comment: . Performed By: #### P T/AP, BMP3, HEMDF #### [facility] [place] [facility] [address] [place] [address] SARS-CoV-2 Antigenon 022 SARS-CoV-2 Antigen Negative Normal Negative [facility] Comment on above: Result Comment: A negative result does not rule out the possibility of SARS-CoV-2 infection. NAAT-based methods should be considered for symptomatic patients presenting greater than seven days after onset of symptoms. Method: Lateral flow immunoassay. Fact sheets for healthcare providers and patients can be found at the following sites: https://www.fda.gov/media/397685/download https://www.adicate timeads.gov/media/949428/download Performed By: #### P T/AP, BMP3, HEMDF #### [facility] [address] [place] [address] Glucose,Bedsideon 03-10-2022 Glucose [Mass/Vol] 137 mg/dL High 70-100 [facility] Comment on above: Result Comment: Test performed by glucose meter. Results may be 10%-15% lower than serum/plasma values. (CLIA ID [id number]) Performed By: #### P T/AP, BMP3, HEMDF #### [facility] [address] [place] [address] Glucose [Mass/Vol] 98 mg/dL Normal 70-100 [facility] Comment on above: Result Comment: Test performed by glucose meter. Results may be 10%-15% lower than serum/plasma values. (CLIA ID [id number]) Performed By: #### P T/AP, BMP3, HEMDF #### [facility] [address] [place] [address] Glucose [Mass/Vol] 143 mg/dL High 70-100 [facility] Comment on above: Result Comment: Test performed by glucose meter. Results may be 10%-15% lower than serum/plasma values. (CLIA ID [id number]) Performed By: #### B GLU #### [facility] [place] [facility] [address] [place] [address] Glucose [Mass/Vol] 170 mg/dL High 70-100 [facility] Comment on above: Result Comment: Test performed by glucose meter. Results may be 10%-15% lower than serum/plasma values. (CLIA ID [id number]) Performed By: #### B GLU #### [facility] [address] [place] [address] POCT GlucoseOrdered By: Tristin Mayers on 03-10-2022 Glucose [Mass/Vol] 137 mg/dL High 70 - 100 mg/dL [facility] Comment on above: Test performed by gl ucose meter. Results may be 10%-15% lower than serum/plasma values. (CLIA ID [id number]) Interpretation and review of laboratory results Abnormal [facility] POCT Glucoseon 03-10-2022 Test Performed by [facility], [address] LAB Glucose [Mass/Vol] 98 mg/dL 70 - 100 mg/dL [facility] Work Phone: Comment on above: Test performed by gl ucose meter. Results may be 10%-15% lower than serum/plasma values. (CLIA ID [id number]) Test Performed by [facility], [address] LAB [facility] Work Phone: Test Performed by [facility], [address] LAB Glucose [Mass/Vol] 170 mg/dL High 70 - 100 mg/dL [facility] Work Phone: Comment on above: Test performed by gl ucose meter. Results may be 10%-15% lower than serum/plasma values. (CLIA ID [id number]) Interpretation and review of laboratory results Abnormal [facility] Work Phone: Test Performed by [facility], [address] LAB [facility] Work Phone: POCT GlucoseOrdered By: Mil Benitez on 03-10-2022 Glucose [Mass/Vol] 143 mg/dL High 70 - 100 mg/dL [facility] Work Phone: Comment on above: Test performed by gl ucose meter. Results may be 10%-15% lower than serum/plasma values. (CLIA ID [id number]) Interpretation and review of laboratory results Abnormal [facility] Work Phone: [facility] Work Phone: PROTIME/INR & PTTon 03-10-20 22 aPTT Coag (Bld) [Time] 40.6 s High 20 - 30.5 s [facility] Comment on above: NOTE: The therapeuti c time for Heparin anticoagulation, based on Xa activity inhibition, is an APTT of 46-80 seconds. INR Coag (Bld) [Relative time] 3.4 {INR} High [facility] Comment on above: Recommended Anticoag ulant [...] Interpretation and review of laboratory results Abnormal [facility] PT Coag (PPP) [Time] 34 s High 9 - 12 s [facility] Comment on above: . Test Performed by [facility], [address], [place], [place] [id number] [place] [address] LAB [facility] Protime AND APTTon 2 aPTT Coag (Bld) [Time] 40.6 s High 20.0-30.5 [facility] Comment on above: Result Comment: NOTE : The therapeutic time for Heparin anticoagulation, based on Xa activity inhibition, is an APTT of 46-80 seconds. Performed By: #### P T/AP, BMP3, HEMDF #### [facility] [address] [place] [address] INR 3.4 High 0.9-1.1 [facility] Comment on above: Result Comment: Rajiv [...] By: #### P T/AP, BMP3, HEMDF #### [facility] [address] [place] [address] PT Coag (PPP) [Time] 34.0 s High 9.0-12.0 [facility] Comment on above: Result Comment: . Performed By: #### P T/AP, BMP3, HEMDF #### [facility] [address] [place] [address] Basic Metabolic Panelon 02-20 Anion gap [Moles/Vol] 4 mmol/L Normal 3-13 [facility] Comment on above: Performed By: #### P T/AP, BMP3, HEMDF #### [facility] [address] [place] [address] Calcium [Mass/Vol] 7.7 mg/dL Low 8.4-10.4 [facility] Comment on above: Performed By: #### P T/AP, BMP3, HEMDF #### [facility] [address] [place] [address] CO2 [Moles/Vol] 25 mmol/L Normal 22-30 [facility] Comment on above: Performed By: #### P T/AP, BMP3, HEMDF #### [facility] [address] [place] [address] Glucose [Mass/Vol] 84 mg/dL Normal 70-100 [facility] Comment on above: Performed By: #### P T/AP, BMP3, HEMDF #### [facility] [address] [place] [address] Urea nitrogen [Mass/Vol] 14 mg/dL Normal 9-20 [facility] Comment on above: Performed By: #### P T/AP, BMP3, HEMDF #### [place] [address] [place] [address] Creatinine [Mass/Vol] 0.85 mg/dL Normal 0.52-1.25 [facility] Comment on above: Performed By: #### P T/AP, BMP3, HEMDF #### [facility] [address] [place] [address] GFR/1.73 sq M.predicted among blacks MDRD (S/P/Bld) [Vol rate/Area] 80.1 mL/min/{1.73_m2} Normal >60 [facility] Comment on above: Performed By: #### P T/AP, BMP3, HEMDF #### [facility] [address] [place] [address] GFR/1.73 sq M.predicted among non-blacks MDRD (S/P/Bld) [Vol rate/Area] 69.1 mL/min/{1.73_m2} Normal >60 [facility] Comment on above: Result Comment: KDIG [...] By: #### P T/AP, BMP3, HEMDF #### [facility] [address] [place] [address] Chloride [Moles/Vol] 106 mmol/L Normal 98-107 [facility] Comment on above: Performed By: #### P T/AP, BMP3, HEMDF #### [facility] [address] [place] [address] Potassium [Moles/Vol] 3.9 mmol/L Normal 3.5-5.1 [facility] Comment on above: Performed By: #### P T/AP, BMP3, HEMDF #### [facility] [address] [place] [address] Sodium [Moles/Vol] 135 mmol/L Normal 135-145 [facility] Comment on above: Performed By: #### P T/AP, BMP3, HEMDF #### [facility] [address] [place] [address] Basic Metabolic Panel w/ Ref uriel to MGon 03-09-2022 Anion gap [Moles/Vol] 4 mmol/L 3 - 13 mmol/L [facility] Calcium [Mass/Vol] 7.7 mg/dL Low 8.4 - 10. 4 mg/dL [facility] Chloride [Moles/Vol] 106 mmol/L 98 - 10 7 mmol/L [facility] CO2 [Moles/Vol] 25 mmol/L 22 - 30 mmol/L [facility] Creatinine [Mass/Vol] 0.85 mg/dL 0.52 - 1.25 mg/dL [facility] EGFR IF NonAfrican [place] 69.1 mL/min 60 - PINF mL/min [facility] Comment on above: KDIGO guidelines pro vide [...] - 20 mg/dL [facility] Test Performed by [facility], [address] [place], [place] [id number] [place] [address] LAB [facility] CBC with Auto Differentialon 03-09-2022 [...] 11.2 g/dL Low 11.7 - 16 g/dL [facility] Interpretation and review of laboratory results Abnormal [...] vol] 8.4 fL 7.4 - 12.4 fL [facility] Comment on above: MPV is a calculated measurement using platelet volume ratio. Platelets (Bld) [#/Vol] 102 10*3/uL Low 140 - 440 10*3/uL [facility] RBC (Bld) [#/Vol] 3.48 10*6/uL Low 3.8 - 5.2 10*6/uL [facility] WBC (Bld) [#/Vol] 5.5 10*3/uL 3.6 - 10.7 10*3/uL [facility] Test Performed by [facility], [address] [place], [place] [id number] [place] [address] LAB [facility] Glucose,Bedsideon 03-09-2022 Glucose [Mass/Vol] 186 mg/dL High 70-100 [facility] Comment on above: Result Comment: Test performed by glucose meter. Results may be 10%-15% lower than serum/plasma values. (CLIA ID [id number]) Performed By: #### P T/AP, BMP3, HEMDF #### [facility] [address] [place] [address] Glucose [Mass/Vol] 139 mg/dL High 70-100 [facility] Comment on above: Result Comment: Test performed by glucose meter. Results may be 10%-15% lower than serum/plasma values. (CLIA ID [id number]) Performed By: #### P T/AP, BMP3, HEMDF #### [facility] [address] [place] [address] Glucose [Mass/Vol] 160 mg/dL High 70-100 [facility] Comment on above: Result Comment: Test performed by glucose meter. Results may be 10%-15% lower than serum/plasma values. (CLIA ID [id number]) Performed By: #### P T/AP, BMP3, HEMDF #### [facility] [address] [place] [address] Glucose [Mass/Vol] 96 mg/dL Normal 70-[address] [place] [address] Comment on above: Result Comment: Test performed by glucose meter. Results may be 10%-15% lower than serum/plasma values. (CLIA ID [id number]) Performed By: #### B GLU #### [facility] [address] [place] [address] Hemoglobin A1Con 03-09-2022 Glucose [Mass/Vol] 151 mg/dL Normal [facility] Comment on above: Performed By: #### B GLU #### [facility] [address] [place] [address] HbA1c (Bld) [Mass fraction] 6.9 % Abnormal [facility] Comment on above: Result Comment: Norm al less than 5.7% Prediabetes 5.7% to 6.4% Diabetes 6.5% or higher --HgbA1C levels may not be accurate in patients who have renal disease, received recent blood transfusions, are anemic, or who have dyshemoglobinemia. Performed By: #### B GLU #### [facility] [address] [place] [address] Hemoglobin A1con 03-09-2022 HbA1c (Bld) [Mass fraction] 6.9 % Abnormal [facility] Comment on above: Normal less than 5.7 % Prediabetes 5.7% to 6.4% Diabetes 6.5% or higher --HgbA1C levels may not be accurate in patients who have renal disease, received recent blood transfusions, are anemic, or who have dyshemoglobinemia. Interpretation and review of laboratory results Abnormal [facility] Magnesium [Mass/Vol] 151 mg/dL [facility] A Test Performed by [facility], [address] [place], [place] [address] [facility] LAB [facility] Hemogram w/ Autodiffon 03-09 Abs Baso Cnt 0.0 10*3/uL Normal 0.0-0.2 [facility] Comment on above: Performed By: #### P T/AP, BMP3, HEMDF #### [facility] [address] [place] [address] Abs Neutrophile Cnt 4.1 10*3/uL Normal 1.8-7.0 [facility] Comment on above: Performed By: #### P T/AP, BMP3, HEMDF #### [facility] [address] [place] [address] Basophils/100 WBC (Bld) 0.6 % Normal 0.0-2.0 [facility] Comment on above: Performed By: #### P T/AP, BMP3, HEMDF #### [facility] [address] [place] [address] Eosinophils (Bld) [#/Vol] 0.1 10*3/uL Normal 0.0-0.5 [facility] Comment on above: Performed By: #### P T/AP, BMP3, HEMDF #### [facility] [address] [place] [address] Eosinophils/100 WBC (Bld) 1.6 % Normal 1.0-6.0 [facility] Comment on above: Performed By: #### P T/AP, BMP3, HEMDF #### [facility] [address] [place] [address] Erythrocyte distribution width (RBC) [Ratio] 13.9 % Normal 11.5-14.5 [facility] Comment on above: Performed By: #### P T/AP, BMP3, HEMDF #### [facility] [address] [place] [address] Granulocytes/100 WBC (Bld) 74.6 % Normal 40.0-80.0 [facility] Comment on above: Performed By: #### P T/AP, BMP3, HEMDF #### [facility] [address] [place] [address] Hematocrit (Bld) [Volume fraction] 31.8 % Low 35.0-47.0 [facility] Comment on above: Performed By: #### P T/AP, BMP3, HEMDF #### [facility] [address] [place] [address] Hemoglobin (Bld) [Mass/Vol] 11.2 g/dL Low 11.7-16.0 [facility] Comment on above: Performed By: #### P T/AP, BMP3, HEMDF #### [facility] [address] [place] [address] Lymphocytes (Bld) [#/Vol] 0.9 10*3/uL Low 1.0-4.3 [facility] Comment on above: Performed By: #### P T/AP, BMP3, HEMDF #### [facility] [address] [place] [address] Lymphocytes/100 WBC (Bld) 16.3 % Low 20.0-40.0 [facility] Comment on above: Performed By: #### P T/AP, BMP3, HEMDF #### [facility] [address] [place] [address] MCH (RBC) [Entitic mass] 32.2 pg Normal 26.0-34.0 [facility] Comment on above: Performed By: #### P T/AP, BMP3, HEMDF #### [facility] [address] [place] [address] MCHC 35.2 % Normal 32.0-36.0 [facility] Comment on above: Performed By: #### P T/AP, BMP3, HEMDF #### [facility] [address] [place] [address] MCV (RBC) [Entitic vol] 91.4 fL Normal 79.0-98.0 [facility] Comment on above: Performed By: #### P T/AP, BMP3, HEMDF #### [facility] [address] [place] [address] Monocytes (Bld) [#/Vol] 0.4 10*3/uL Normal 0.0-0.8 [facility] Comment on above: Performed By: #### P T/AP, BMP3, HEMDF #### [facility] [address] [place] [address] Monocytes/100 WBC (Bld) 6.9 % Normal 2.0-10.0 [facility] Comment on above: Performed By: #### P T/AP, BMP3, HEMDF #### [facility] [address] [place] [address] Platelet mean volume (Bld) [Entitic vol] 8.4 fL Normal 7.4-12.4 [facility] Comment on above: Result Comment: MPV is a calculated measurement using platelet volume ratio. Performed By: #### P T/AP, BMP3, HEMDF #### [facility] [address] [place] [address] Platelets (Bld) [#/Vol] 102 10*3/uL Low 140-440 [facility] Comment on above: Performed By: #### P T/AP, BMP3, HEMDF #### [facility] [address] [place] [address] RBC (Bld) [#/Vol] 3.48 10*6/uL Low 3.80-5.20 [facility] Comment on above: Performed By: #### P T/AP, BMP3, HEMDF #### [facility] [address] [place] [address] WBC (Bld) [#/Vol] 5.5 10*3/uL Normal 3.6-10.7 [facility] Comment on above: Performed By: #### P T/AP, BMP3, HEMDF #### [facility] [address] [place] [address] POCT GlucoseOrdered By: Blayne Villalobos on 03-09-2022 Glucose [Mass/Vol] 186 mg/dL High 70 - 100 mg/dL [facility] Work Phone: Comment on above: Test performed by gl ucose meter. Results may be 10%-15% lower than serum/plasma values. (CLIA ID [id number]) Interpretation and review of laboratory results Abnormal [facility] Work Phone: [facility] Work Phone: POCT Glucoseon 03-09-2022 Test Performed by [facility], [address] LAB Glucose [Mass/Vol] 139 mg/dL High 70 - 100 mg/dL [facility] Work Phone: Comment on above: Test performed by gl ucose meter. Results may be 10%-15% lower than serum/plasma values. (CLIA ID [id number]) Interpretation and review of laboratory results Abnormal [facility] Work Phone: Test Performed by [facility], [address] LAB [facility] Work Phone: Test Performed by [facility], [address] [place], [place], [place] [id number] [place] [address] LAB Glucose [Mass/Vol] 96 mg/dL 70 - 100 mg/dL [facility] Work Phone: Comment on above: Test performed by gl ucose meter. Results may be 10%-15% lower than serum/plasma values. (CLIA ID [id number]) Test Performed by [facility], [address] [place], [address] LAB [facility] Work Phone: POCT GlucoseOrdered By: Ines Choi on 03-09-2022 Glucose [Mass/Vol] 160 mg/dL High 70 - 100 mg/dL [facility] Comment on above: Test performed by gl ucose meter. Results may be 10%-15% lower than serum/plasma values. (CLIA ID [id number]) Interpretation and review of laboratory results Abnormal [facility] PROTIME/INR & PTTon 03-09-20 22 aPTT [...] Interpretation and review of laboratory results Abnormal [facility] PT Coag (PPP) [Time] 24.5 s High 9 - 12 s [facility] A Comment on above: . Test Performed by [facility], [address] [place], [address] LAB [facility] Protime AND APTTon 2 aPTT Coag (Bld) [Time] 40.6 s High 20.0-30.5 [facility] Comment on above: Result Comment: NOTE : The therapeutic time for Heparin anticoagulation, based on Xa activity inhibition, is an APTT of 46-80 seconds. Performed By: #### P T/CLAIRE RENE, HEMDF #### [address] [place] [address] INR 2.4 High 0.9-1.1 [facility] Comment on above: Result Comment: Rajiv [...] By: #### P Sourav/CLAIRE RENE, HEMDF #### [address] [place] [address] PT Coag (PPP) [Time] 24.5 s High 9.0-12.0 [facility] Comment on above: Result Comment: . Performed By: #### P Sourav/CLAIRE RENE, HEMDF #### [place] [address] TSHon 03-09-2022 TSH Qn 3.493 u[IU]/mL 0.465 - 4.68 u[IU]/mL [facility] Test Performed by [facility], [address] [place] [address]. [address] LAB [facility] Thyroid Stim. Hormoneon 02-20 Thyroid Stim. Hormone 3.493 u[IU]/mL Normal 0.46 5-4.68 0 [facility] Comment on above: Performed By: #### B GLU #### [place] [address] Vancomycinon 03-09-2022 Vancomycin 12.3 ug/mL Low 15.0-20.0 [facility] Comment on above: Result Comment: . Performed By: #### P T/ANJU BMP3, HEMDF #### [facility] [address] [place] [address] Vancomycin Level, Randomon 0 03-09-2022 Interpretation and review of laboratory results Abnormal [facility] Vancomycin 12.3 ug/mL Low 15 - 20 ug/mL [facility] Comment on above: . Test Performed by [facility], [address] [place] [address] [facility] LAB [facility] Basic Metabolic Panelon - Anion gap [Moles/Vol] 4 mmol/L Normal 3-13 [facility] Comment on above: Performed By: #### P T/AP, BMP3, HEMDF #### [facility] [address] [place] [address] Calcium [Mass/Vol] 8.4 mg/dL Normal 8.4-10.4 [facility] Comment on above: Performed By: #### P T/AP, BMP3, HEMDF #### [facility] [address] [place] [address] CO2 [Moles/Vol] 27 mmol/L Normal 22-30 [facility] Comment on above: Performed By: #### P T/AP, BMP3, HEMDF #### [facility] [address] [place] [address] Creatinine [Mass/Vol] 0.95 mg/dL Normal 0.52-1.25 [facility] Comment on above: Performed By: #### P T/AP, BMP3, HEMDF #### [facility] [address] [place] [address] GFR/1.73 sq M.predicted among blacks MDRD (S/P/Bld) [Vol rate/Area] 70.0 mL/min/{1.73_m2} Normal >60 [facility] Comment on above: Performed By: #### P T/AP, BMP3, HEMDF #### [facility] [address] [place] [address] GFR/1.73 sq M.predicted among non-blacks MDRD (S/P/Bld) [Vol rate/Area] 60.4 mL/min/{1.73_m2} Normal >60 [facility] Comment on above: Result Comment: KDIG [...] By: #### P T/AP, BMP3, HEMDF #### [facility] [address] [place] [address] Glucose [Mass/Vol] 117 mg/dL High 70-100 [facility] Comment on above: Performed By: #### P T/AP, BMP3, HEMDF #### [facility] [address] [place] [address] Urea nitrogen [Mass/Vol] 16 mg/dL Normal 9-20 [facility] Comment on above: Performed By: #### P T/AP, BMP3, HEMDF #### [facility] [address] [place] [address] Chloride [Moles/Vol] 102 mmol/L Normal 98-107 [facility] Comment on above: Performed By: #### P T/AP, BMP3, HEMDF #### [facility] [address] [place] [address] Potassium [Moles/Vol] 4.5 mmol/L Normal 3.5-5.1 [facility] Comment on above: Performed By: #### P T/AP, BMP3, HEMDF #### [facility] [address] [place] [address] Sodium [Moles/Vol] 133 mmol/L Low 135-145 [facility] Comment on above: Performed By: #### P T/AP, BMP3, HEMDF #### [facility] [address] [place] [address] Anion gap [Moles/Vol] 4 mmol/L 3 - 13 mmol/L [facility] Calcium [Mass/Vol] 8.4 mg/dL 8.4 - 10. 4 mg/dL [facility] Chloride [Moles/Vol] 102 mmol/L 98 - 10 7 mmol/L [facility] CO2 [Moles/Vol] 27 mmol/L 22 - 30 mmol/L [facility] Creatinine [Mass/Vol] 0.95 mg/dL 0.52 - 1.25 mg/dL [facility] EGFR IF NonAfrican [place]ak 60.4 mL/min 60 - PINF mL/min [facility] [...] - 20 mg/dL [facility] Test Performed by [facility], [address] [place], [place] [address] [facility] CBC with Auto [...] - 10.7 10*3/uL [facility] Test Performed by [facility], [address] [place], [place], [place] [address] [facility] LAB [facility] CR Ankle 3+ Views Lefton CR Ankle 3+ Views Left Patient Name: RANDOLPH HUNTER Diagnostic Radiology ACCESSION EXAM DATE/TIME PROCEDURE ORDERING PROVIDER [id number] 03/08/2022 16:53 EDT CR Ankle 3+ Views Left JOHN LEZAMA LOUANN B CPT code 28767 Reason For Exam (CR Ankle 3+ Views [...] arterial atherosclerotic changes. Report Dictated on Workstation: Handpressions Final Dictating Physician: HARPER ANTONIO DO, I Signed Date and Time: 03/08/2022 5:15 pm Signed by: HARPER ANTONIO DO, I Transcribed Date and Time: 03/08/2022 5:16 Normal [facility] Complete Urinalysison 2021 Appearance (U) Turbid Abnormal Clear [facility] Comment on above: Result Comment: . Performed By: #### P T/AP, BMP3, HEMDF #### [facility] [address] [place] [address] Bacteria Loaded Abnormal Negative [facility] Comment on above: Result Comment: . Performed By: #### P T/AP, BMP3, HEMDF #### [facility] [address] [place] [address] Bilirubin,Urine Negative Normal Negative [facility] Comment on above: Result Comment: . Performed By: #### P T/AP, BMP3, HEMDF #### [facility] [address] [place] [address] Color (U) Light-Yellow Normal Lt. Yellow [facility] Comment on above: Result Comment: . Performed By: #### P T/AP, BMP3, HEMDF #### [facility] [address] [place] [address] Glucose Ql (U) Normal Normal Normal (<70) [facility] Comment on above: Result Comment: . Performed By: #### P T/AP, BMP3, HEMDF #### [facility] [address] [place] [address] Ketone,Urine Negative Normal Negative [facility] Comment on above: Result Comment: . Performed By: #### P T/AP, BMP3, HEMDF #### [facility] [address] [place] [address] Leukocytes,Urine 500 Elvi/uL Abnormal Negative [facility] Comment on above: Result Comment: . Performed By: #### P T/AP, BMP3, HEMDF #### [facility] [address] [place] [address] Mucous Threads Few Normal Negative [facility] Comment on above: Result Comment: . Performed By: #### P T/AP, BMP3, HEMDF #### [facility] [address] [place] [address] Nitrites,Urine Positive Abnormal Negative [facility] Comment on above: Result Comment: . Performed By: #### P T/AP, BMP3, HEMDF #### [facility] [address] [place] [address] Non-Squamous Epithelial < 1 Abnormal Negative [facility] Comment on above: Result Comment: . Performed By: #### P T/AP, BMP3, HEMDF #### [facility] [address] [place] [address] Occult Blood,Urine 0.06 mg/dL Abnormal Negative [facility] Comment on above: Result Comment: . Performed By: #### P T/AP, BMP3, HEMDF #### [facility] [address] [place] [address] pH,Urine 6.0 Normal 5.0-8.0 [facility] Comment on above: Result Comment: . Performed By: #### P T/AP, BMP3, HEMDF #### [facility] [address] [place] [address] Protein (U) [Mass/Vol] 20 mg/dL Abnormal Negative [facility] Comment on above: Result Comment: . Performed By: #### P T/AP, BMP3, HEMDF #### [facility] [address] [place] [address] RBC, Urine 3 - 5 Abnormal 0-2 [facility] Comment on above: Result Comment: . Performed By: #### P T/AP, BMP3, HEMDF #### [facility] [place] [facility] [address] [place] [address] Specific [place],Urine 1.014 Normal 1.005 - 1.030 [facility] Comment on above: Result Comment: . Performed By: #### P T/AP, BMP3, HEMDF #### [facility] [address] [place] [address] Squamous Epithelial 0 - 2 Normal 3-5 [facility] Comment on above: Result Comment: . Performed By: #### P T/AP, BMP3, HEMDF #### [facility] [place] [facility] [address] [place] [address] Urobilinogen,Urine Normal Normal Normal (0-1) [facility] Comment on above: Result Comment: . Performed By: #### P T/AP, BMP3, HEMDF #### [facility] [address] [place] [address] WBC, Urine 51 - 100 Abnormal 0-5 [facility] Comment on above: Result Comment: . Performed By: #### P T/AP, BMP3, HEMDF #### [facility] [address] [place] [address] ED Provider Noteon 2 ED Provider Note [...] mouth daily CALCIUM CARBONATE 600MG W/ VITAMIN [id number] Med cyanocobalamin 1000 MCG/ML injection Inject 1,000 [...] use: Never Sexual activity: Not Currently SCREENINGS [place] Coma Scale Eye Opening: Spontaneous Best Verbal Response: Oriented Best Motor Response: Obeys commands [place] Coma Scale Score: 15 PHYSICAL EXAM (up [...] Exam Kaycee (more content not included)... Normal [facility] Glucose,Bedsideon 03-08-2022 Glucose [Mass/Vol] 112 mg/dL High 70-100 [facility] Comment on above: Result Comment: Test performed by glucose meter. Results may be 10%-15% lower than serum/plasma values. (CLIA ID [id number]) Performed By: #### P T/AP, BMP3, HEMDF #### [facility] [address] [facility] [place] [address] Glucose [Mass/Vol] 81 mg/dL Normal 70-100 [facility] Comment on above: Result Comment: Test performed by glucose meter. Results may be 10%-15% lower than serum/plasma values. (CLIA ID [id number]) Performed By: #### P T/AP, BMP3, HEMDF #### [facility] [address] [place] [address] Hemogram w/ Autodiffon 03-08 Abs Baso Cnt 0.0 10*3/uL Normal 0.0-0.2 [facility] Comment on above: Performed By: #### P T/AP, BMP3, HEMDF #### [facility] [address] [facility] [place] [address] Abs Neutrophile Cnt 7.5 10*3/uL High 1.8-7.0 [facility] Comment on above: Performed By: #### P T/AP, BMP3, HEMDF #### [facility] [address] [place] [place] [address] Basophils/100 WBC (Bld) 0.1 % Normal 0.0-2.0 [facility] Comment on above: Performed By: #### P T/AP, BMP3, HEMDF #### [facility] [address] [facility] [place] [address] Eosinophils (Bld) [#/Vol] 0.0 10*3/uL Normal 0.0-0.5 [facility] Comment on above: Performed By: #### P T/AP, BMP3, HEMDF #### [facility] [address] [place] [address] Eosinophils/100 WBC (Bld) 0.2 % Low 1.0-6.0 [facility] Comment on above: Performed By: #### P T/AP, BMP3, HEMDF #### [facility] [address] [place] [address] Erythrocyte distribution width (RBC) [Ratio] 14.1 % Normal 11.5-14.5 [facility] Comment on above: Performed By: #### P T/AP, BMP3, HEMDF #### [facility] [address] [place] [address] Granulocytes/100 WBC (Bld) 86.4 % High 40.0-80.0 [facility] Comment on above: Performed By: #### P T/AP, BMP3, HEMDF #### [facility] [address] [place] [address] Hematocrit (Bld) [Volume fraction] 36.9 % Normal 35.0-47.0 [facility] Comment on above: Performed By: #### P T/AP, BMP3, HEMDF #### [facility] [address] [place] [address] Hemoglobin (Bld) [Mass/Vol] 12.6 g/dL Normal 11.7-16.0 [facility] Comment on above: Performed By: #### P T/AP, BMP3, HEMDF #### [facility] [address] [place] [address] Lymphocytes (Bld) [#/Vol] 0.7 10*3/uL Low 1.0-4.3 [facility] Comment on above: Performed By: #### P T/AP, BMP3, HEMDF #### [facility] [address] [place] [address] Lymphocytes/100 WBC (Bld) 8.3 % Low 20.0-40.0 [facility] Comment on above: Performed By: #### P T/AP, BMP3, HEMDF #### [facility] [address] [place] [address] MCH (RBC) [Entitic mass] 31.9 pg Normal 26.0-34.0 [facility] Comment on above: Performed By: #### P T/AP, BMP3, HEMDF #### [facility] [address] [place] [address] MCHC 34.3 % Normal 32.0-36.0 [facility] Comment on above: Performed By: #### P T/AP, BMP3, HEMDF #### [facility] [address] [place] [address] MCV (RBC) [Entitic vol] 93.2 fL Normal 79.0-98.0 [facility] Comment on above: Performed By: #### P T/AP, BMP3, HEMDF #### [facility] [address] [place] [address] Monocytes (Bld) [#/Vol] 0.4 10*3/uL Normal 0.0-0.8 [facility] Comment on above: Performed By: #### P T/AP, BMP3, HEMDF #### Formerly [facility] [address] [place] [address] Monocytes/100 WBC (Bld) 5.0 % Normal 2.0-10.0 [facility] Comment on above: Performed By: #### P T/AP, BMP3, HEMDF #### [facility] [address] [place] [address] Platelet mean volume (Bld) [Entitic vol] 8.9 fL Normal 7.4-12.4 [facility] Comment on above: Result Comment: MPV is a calculated measurement using platelet volume ratio. Performed By: #### P T/AP, BMP3, HEMDF #### [facility] [address] [place] [address] Platelets (Bld) [#/Vol] 132 10*3/uL Low 140-440 [facility] Comment on above: Performed By: #### P T/AP, BMP3, HEMDF #### [facility] [address] [place] [address] RBC (Bld) [#/Vol] 3.96 10*6/uL Normal 3.80-5.20 [facility] Comment on above: Performed By: #### P T/AP, BMP3, HEMDF #### [facility] [address] [place] [address] WBC (Bld) [#/Vol] 8.7 10*3/uL Normal 3.6-10.7 [facility] Comment on above: Performed By: #### P T/AP, BMP3, HEMDF #### [facility] [address] [place] [address] Lactate, Sepsison 03-08-2022 Lactate [Moles/Vol] 1.7 mmol/L 0.7 - 2 mmol/L [facility] Test Performed by [facility], [address] [place], [place] [id number] [place] [address] LAB [facility] Lactic Acid, Sepsison 2021 Lactate [Moles/Vol] 1.7 mmol/L Normal 0.7-2.0 [facility] Comment on above: Performed By: #### P T/AP, BMP3, HEMDF #### [facility] [address] [place] [address] POCT GlucoseOrdered By: Jossy Moncada on 03-08-2022 Glucose [Mass/Vol] 112 mg/dL High 70 - 100 mg/dL [facility] Work Phone: Comment on above: Test performed by gl ucose meter. Results may be 10%-15% lower than serum/plasma values. (CLIA ID [id number]) Interpretation and review of laboratory results Abnormal [facility] Work Phone: [facility] Work Phone: POCT Glucoseon 03-08-2022 Test Performed by [facility], [address] [place], [place] [id number] [place] [address] LAB Test Performed by [facility], [address] LAB POCT GlucoseOrdered By: Yaakov Whitehead on 03-08-2022 Glucose [Mass/Vol] 81 mg/dL 70 - 100 mg/dL [facility] Work Phone: Comment on above: Test performed by gl ucose meter. Results may be 10%-15% lower than serum/plasma values. (CLIA ID [id number]) [facility] Work Phone: Prothrombin Timeon 2 INR 2.3 High 0.9-1.1 [facility] Comment on above: Result Comment: Rajiv [...] By: #### P T/AP, BMP3, HEMDF #### [facility] [address] [place] [address] PT Coag (PPP) [Time] 23.8 s High 9.0-12.0 [facility] Comment on above: Result Comment: . Performed By: #### P T/AP, BMP3, HEMDF #### [facility] [address] [place] [address] Protime-INRon 03-08-2022 INR Coag (Bld) [Relative time] 2.3 {INR} High [facility] Comment on above: Recommended Anticoag ulant [...] Interpretation and review of laboratory results Abnormal [facility] PT Coag (PPP) [Time] 23.8 s High 9 - 12 s [facility] Comment on above: . Test Performed by [facility], [address] [place], [place] [address] [facility] LAB [facility] Urinalysison 03-08-2022 Appearance (U) Turbid Abnormal Clear NA [facility] Comment on above: . Bacteria, UA [...] /[HPF] [facility] Comment on above: . Specific [place], Urine 1.014 [facility] Comment on above: . Squam Epithel, UA 0-2 3 - 5 /[HPF] [facility] Comment on above: . Urobilinogen, Urine Normal Normal (0-1) mg/dL [facility] Comment on above: . WBC, UA /[HPF] Abnormal 0 - 5 /[HPF] [facility] Comment on above: . Test Performed by [facility], [address] [place], [place] [id number] [place] [address] LAB [facility] XR ANKLE LEFT (MIN 3 VIEWS)o n 03-08-2022 Patient Name: RANDOLPH HUNTER Diagnostic Radiology ACCESSION EXAM DATE/TIME PROCEDURE ORDERING PROVIDER [id number] 03/08/2022 16:53 EDT CR Ankle 3+ Views Left JOHN LEZAMA LOUANN B CPT code 48490 Reason For Exam (CR Ankle 3+ Views [...] Radiology ACCESSION EXAM DATE/TIME PROCEDURE ORDERING PROVIDER [id number] 03/08/2022 16:53 EDT CR Ankle 3+ Views Left JOHN LEZAMA LOUANN B CPT code 86859 Reason For Exam (CR Ankle 3+ Views [...] I Transcribed Date and Time: 03/08/2022 5:16 [facility] Work Phone: Radiology Study observation (narrative) [facility] Work Phone: XR ANKLE LEFT (MIN 3 VIEWS)O rdered By: Harper Antonio on 03-08-2022 [facility] Work Phone: PT panel Coag (PPP)on 2021 INR Coag (Bld) [Relative time] 2.3 (EXT) 2.0 - 3.0 [facility] INRon 10-29-2021 INR Coag (Bld) [Relative time] [facility] PT panel Coag (PPP)on 2021 INR Coag (Bld) [Relative time] 2.1 {INR} [facility] DXA-AXIAL SKELETONon 022 [facility] PT panel Coag (PPP)on 2021 INR Coag (Bld) [Relative time] 2.1(EXT) 2.0 - 3.0 [facility] PT panel Coag (PPP)on 2021 INR Coag (Bld) [Relative time] 2.6(EXT) 2.0 - 3.0 [facility] PT panel Coag (PPP)on 2021 INR Coag (Bld) [Relative time] 2.2 (ext) [facility] Basophil percentageon 2021 Bilirubin [Mass/Vol] 0.40 mg/dL 0.20-1.00 [facility] Work Phone: Comment on above: For patients on eltr ombopag therapy, use of Dimension [place] TBIL is not recommended. Cholesterol [Mass/Vol] 142 mg/dL <200 [facility] Comment on above: <200 mg/dL Desirable 200-240 mg/dL Borderline >240 mg/dL High Risk Protein [Mass/Vol] 7.5 g/dL 6.4-8.2 [facility] Work Phone: Triglyceride [Mass/Vol] 156 mg/dL [facility] Comment on above: The drugs N-Acetylcy steine and Metamizole may falsely depress this assay.Serum Triglycerides Reference Interval Normal <150 mg/dL Borderline high 150 - 199 mg/dL High 200 - 499 mg/dL Very High > or = 500 mg/dL Direct bilirubinon Bilirubin.direct [Mass/Vol] 0.12 mg/dL 0.00-0.30 [facility] Work Phone: LIPID PANEL (EXTERNAL)on HDC-L 41 mg/dL 41 mg/dL [facility] LDL Chol, calculated 31 MG/DL 130 MG/DL [facility] Laboratory - Chemistry and C hemistry - challengeon 09-16-2021 ALP [Catalytic activity/Vol] 58 U/L 45-117 [facility] Work Phone: ALT [Catalytic activity/Vol] 18 U/L 13-56 [facility] Work Phone: Globulin (S) [Mass/Vol] 4.1 g/dL 2.2-4.2 [facility] Work Phone: MICROALBUMIN/CREATININE UR W RATIO (EXTERNAL)on 09-16-2021 Albumin/Creat Ratio 9.4 [facility] [place] [facility] Creatinine Urine 158 [facility] Microalbumin, Random urine 14.9 [facility] No Panel Informationon 09-16 Urine Microalbumin/Creatini ne Ratio 9.4 mg/g CRE <30 [facility] Work Phone: Serum or plasma albumin aura urement (mass/volume)on 09-16-2021 Albumin [Mass/Vol] 3.4 g/dL 3.2-5.0 [facility] Work Phone: Serum or plasma cholesterol in HDL measurement (mass/volume)on 09-16-2021 Cholesterol in HDL [Mass/Vol] 41 mg/dL [facility] Work Phone: Comment on above: The drugs N-Acetylcy steine and Metamizole may falsely depress this assay. Reference Range HDL <40 mg/dL Low HDL Cholesterol HDL >or= 60 mg/dL High HDL Cholesterol Serum or plasma cholesterol in VLDL measurement (mass/volume)on 09-16-2021 Cholesterol in VLDL [Mass/Vol] 31 mg/dL 5-40 [facility] Work Phone: Serum or plasma low density lipoprotein (LDL) cholesterol measurement (mass/volume)on 09-16-2021 Cholesterol in LDL [Mass/Vol] 70 mg/dL 0-130 [facility] Work Phone: Thin prep Papanicolaou smear with manual screeningon 09-16-2021 Thin prep Papanicolaou smear with manual screening 22 U/L 15-37 [facility] Work Phone: Thin prep Papanicolaou smear with manual screening 14.9 mg/L NO RANGE EST. [facility] Work Phone: Urine creatinine measurement (mass/volume)on 09-16-2021 Creatinine (U) [Mass/Vol] 158.00 mg/dL NO RANGE EST. [facility] Work Phone: PT panel Coag (PPP)on 2021 INR Coag (Bld) [Relative time] 1.9 (EXT) 2.0 - 3.0 [facility] XR Shoulder - right 3 Viewso n 01-29-2021 IMPRESSION: 1. Stable mild acromioclavicular degenerative changes. Psychology Professor: INDOM Transcribe Date/Time: Jan 29 2021 2:19P Dictated by : MIN GARCIA MD This examination was interpreted and the report reviewed and electronically signed by: MIN GARCIA MD on Jan 29 2021 2:21PM [facility] DIVISION OF RADIOLOGY * * *Final [...] IMPRESSION: 1. Stable mild acromioclavicular degenerative changes. Psychology Professor: INDOM Transcribe Date/Time: Aug 10 2021 2:19P Dictated by : MIN GARCIA MD This examination was interpreted and the report reviewed and electronically signed by: MIN GARCIA MD on Jan 29 2021 2:21PM EST [facility] Radiology Study observation (narrative) [facility] XR Shoulder - right 3 ViewsO rdered By: Ccf Provider on 01-29-2021 [facility] CNOVon 08-12-2017 CNOV Office Visit (AGCARDWST) -------RANDOLPH HUNTER ([id number]) 1950 FDate Time Provider Department08/12/17 1:00 PM DAVID ERWIN AGCARDWST During your visit today, we recorded the following information about you: Pulse Blood pressure Weight Height 78/minute 116/76 104.4 kg 1.676 Horacio rEwin MD 08/12/2017 2:54 PM SignedPERTINENT CARDIAC HISTORYASHD - PCI LAD 2003, 2004 and PCI Cx 2007HTNHL - statin averseDMPVD - patch repairCarotid artery diseasePulmonary emboli - chronic a/cNo LOYDA-I due to low BPADHERENCE TO GUIDELINESACE-I or ARB for HF with prior LVEFANDlt;40 (NQF 0081) - metASA or Plavix for ASHD (NQF 0067) - metBeta nisha for ASHD with prior SC or prior LVEFANDlt;40 (NQF 0070) - metBeta [...] with treatment plan.This note was generated using [employer] voice recognition system, and there may besome [...] of metoprolol.Electronically Signed:David Erwin MDFebruary 2017 1:17 [facility] Lin Ashley MD 08/12/2017 1:17 PM SignedLIFESTYLE [...] programs in your area.Referring Provider: DAVID ERWIN [[id number]]Allergies As of Date: 08/12/2017 Noted Allergy ReactionPHENERGAN [...] [I10]Order(s):metoprolol succinate ER (TOPROL XL) 100 mg Bd33Klmp 1 tablet by mouth once daily.Disp: 90 [...] SmartForms filed during this visit:Extended VitalsEncounter Number: [id number] Status:Closed by DAVID ERWIN MD on 08/12/[address] [facility] PROGRESSon 08-12-2017 PROGRESS HNO ID: [id number] thor: David Raya: (none)Author Type: PhysicianType: Progress [...] - metBeta nisha for ASHD with prior SC or prior LVEF<40 (NQF 0070) - metBeta [...] with treatment plan.This note was generated using [employer] voice recognition system, and theremay be some [...] to increased doses of metoprolol.Electronically Signed:David Erwin MDHu Hu Kam [facility] Hospitaluary 2017 1:17 [facility]: Vishnu Coleman MD [facility] OBSOLETEon 04-06-2017 OBSOLETE Refill (AGCARDWST) -------RANDOLPH HUNTER ([id number]) 1950 [facility] Time Provider Gnycjiyjvp79/16/17 DAVID ERWIN During your visit today, we recorded the following information about you:Gui Gallego RN, RN 04/06/2017 1:59 PM SignedPatient phones requesting refills as follows:Pending Prescriptions Disp Refills METOPROLOL SUCCINATE ER 50 MG TABLET,EXTENDED RELEASE 24 HR 135 tablet 3 Sig: Take 1.5 tablets by mouth once daily. IRA: No Please review and advise.Feng Gavlez has been identified by name and date [...] file. Status:Closed by GUI GALLEGO on 04/06/17 [facility] Vital Signs Date Time Vital Sign Value Performing Clinician Faci lity 10-10-2024 13:29-0400 Body temperature 96.8 [degF] Travis Helbert GEOSPATIAL ENGINEER.SUPERVISOR PHOTOENGRAVING Work Phone: [facility] 10-10-2024 13:29-0400 Diastolic blood pressure 57 mm[Hg] Travis Helbert GEOSPATIAL ENGINEER.SUPERVISOR PHOTOENGRAVING Work Phone: [facility] 10-10-2024 13:29-0400 Heart rate 66 /min Travis Helbert GEOSPATIAL ENGINEER.SUPERVISOR PHOTOENGRAVING Work Phone: [facility] 10-10-2024 13:29-0400 Respiratory rate 16 /min Travis Helbert GEOSPATIAL ENGINEER.SUPERVISOR PHOTOENGRAVING Work Phone: [facility] 10-10-2024 13:29-0400 SaO2% (BldA) [Mass fraction] 97 % Travis Lackeybert GEOSPATIAL ENGINEER.SUPERVISOR PHOTOENGRAVING Work Phone: [facility] 10-10-2024 13:29-0400 Systolic blood pressure 120 mm[Hg] Travis Helbert GEOSPATIAL ENGINEER.SUPERVISOR PHOTOENGRAVING Work Phone: [facility] 10-05-2024 16:09-0400 Body temperature 97.81 [degF] Travis Helbert GEOSPATIAL ENGINEER.SUPERVISOR PHOTOENGRAVING Work Phone: [facility] 10-05-2024 16:09-0400 Diastolic blood pressure 71 mm[Hg] Travis Helbert GEOSPATIAL ENGINEER.SUPERVISOR PHOTOENGRAVING Work Phone: [facility] 10-05-2024 16:09-0400 Heart rate 64 /min Travis Helbert GEOSPATIAL ENGINEER.SUPERVISOR PHOTOENGRAVING Work Phone: [facility] 10-05-2024 16:09-0400 Respiratory rate 19 /min Travis Helbert GEOSPATIAL ENGINEER.SUPERVISOR PHOTOENGRAVING Work Phone: [facility] 10-05-2024 16:09-0400 SaO2% (BldA) [Mass fraction] 96 % Travis Lackeybert GEOSPATIAL ENGINEER.SUPERVISOR PHOTOENGRAVING Work Phone: [facility] 10-05-2024 16:09-0400 Systolic blood pressure 122 mm[Hg] Travis Helbert GEOSPATIAL ENGINEER.SUPERVISOR PHOTOENGRAVING Work Phone: [facility] 09-30-2024 13:29-0400 Body temperature 97.3 [degF] Travis Patterson GEOSPATIAL ENGINEER.SUPERVISOR PHOTOENGRAVING Work Phone: [facility] 09-30-2024 13:29-0400 Diastolic blood pressure 64 mm[Hg] Travis Patterson GEOSPATIAL ENGINEER.SUPERVISOR PHOTOENGRAVING Work Phone: [facility] 09-30-2024 13:29-0400 Heart rate 69 /min Travis Felicitas GEOSPATIAL ENGINEER.SUPERVISOR PHOTOENGRAVING Work Phone: [facility] 09-30-2024 13:29-0400 Respiratory rate 18 /min Travis Patterson GEOSPATIAL ENGINEER.SUPERVISOR PHOTOENGRAVING Work Phone: [facility] 09-30-2024 13:29-0400 SaO2% (BldA) [Mass fraction] 97 % Travis Lackeyheide MCDONNELL.SUPERVISOR PHOTOENGRAVING Work Phone: [facility] 09-30-2024 13:29-0400 Systolic blood pressure 124 mm[Hg] Travis Patterson GEOSPATIAL ENGINEER.SUPERVISOR PHOTOENGRAVING Work Phone: [facility] 07-09-2024 23:24-0500 Diastolic blood pressure 66 mm[Hg] BETY Jha MD Work Phone: [facility] 07-09-2024 23:24-0500 Heart rate 96 /min BETY Jha MD Work Phone: [facility] 07-09-2024 23:24-0500 Respiratory rate 20 /min BETY Jha MD Work Phone: [facility] 07-09-2024 23:24-0500 SaO2% (BldA) [Mass fraction] 98 % BETY Jha MD Work Phone: [facility] 07-09-2024 23:24-0500 Systolic blood pressure 99 mm[Hg] BETY Jha MD Work Phone: [facility] 07-09-2024 23:21-0500 Body height 157.5 cm BETY Jha MD Work Phone: [facility] 07-09-2024 23:21-0500 Body mass index (BMI) [Ratio] 39.14 kg/m2 BETY Jha MD Work Phone: [facility] 07-09-2024 23:21-0500 Body temperature 98.4 [degF] BETY Jha MD Work Phone: [facility] 07-09-2024 23:21-0500 Body weight 97.07 kg BETY Jha MD Work Phone: [facility] 02-10-2024 10:43-0400 Body temperature 97.7 [degF] Isaaccirilo Chicas DO Work Phone: [facility] 01-27-2024 12:59-0400 Body temperature 97.11 [degF] Isaaccirilo Hancocke DO Work Phone: [facility] 01-27-2024 12:59-0400 Diastolic blood pressure 76 mm[Hg] Isaaccirilo Hancocke DO Work Phone: [facility] 01-27-2024 12:59-0400 Heart rate 72 /min Isaac Brian DO Work Phone: [facility] 01-27-2024 12:59-0400 Respiratory rate 18 /min Isaac Brian DO Work Phone: [facility] 01-27-2024 12:59-0400 Systolic blood pressure 126 mm[Hg] Isaaccirilo Hancocke DO Work Phone: [facility] 01-20-2024 14:26-0400 Body height 157.5 cm Isaaccirilo Hancocke DO Work Phone: [facility] 01-20-2024 14:26-0400 Body mass index (BMI) [Ratio] 38.96 kg/m2 Isaaccirilo Hancocke DO Work Phone: [facility] 01-20-2024 14:26-0400 Body temperature 97.2 [degF] Isaaccirilo Hancocke DO Work Phone: [facility] 01-20-2024 14:26-0400 Body weight 96.62 kg Isaaccirilo Hancocke DO Work Phone: [facility] 01-20-2024 14:26-0400 Diastolic blood pressure 70 mm[Hg] Isaac Chicas DO Work Phone: [facility] 01-20-2024 14:26-0400 Heart rate 79 /min Isaac Chicas DO Work Phone: [facility] 01-20-2024 14:26-0400 Respiratory rate 18 /min Isaac Chicas DO Work Phone: [facility] 01-20-2024 14:26-0400 Systolic blood pressure 112 mm[Hg] Isaac Chicas DO Work Phone: [facility] 12-15-2023 22:15-0400 Diastolic blood pressure 57 mm[Hg] Gloria Bangura DO Work Phone: [facility] 12-15-2023 22:15-0400 Heart rate 64 /min Gloriajasvir Bangura DO Work Phone: [facility] 12-15-2023 22:15-0400 Respiratory rate 16 /min Gloria Bangura DO Work Phone: [facility] 12-15-2023 22:15-0400 SaO2% (BldA) [Mass fraction] 98 % Gloria Bangura DO Work Phone: [facility] 12-15-2023 22:15-0400 Systolic blood pressure 137 mm[Hg] Gloriajasvir Bangura DO Work Phone: [facility] 12-15-2023 18:24-0400 Body height 165.1 cm Gloriajasvir Bangura DO Work Phone: [facility] 12-15-2023 18:24-0400 Body mass index (BMI) [Ratio] 35.45 kg/m2 Gloria Willem DO Work Phone: [facility] 12-15-2023 18:24-0400 Body temperature 97.3 [degF] Gloriajasvir Bangura DO Work Phone: [facility] 12-15-2023 18:24-0400 Body weight 96.62 kg Gloria Bangura DO Work Phone: [facility] 07-20-2023 06:46-0500 Diastolic blood pressure 67 mm[Hg] Cuba Anna MD Work Phone: [facility] 07-20-2023 06:46-0500 Heart rate 63 /min Cuba Anna MD Work Phone: [facility] 07-20-2023 06:46-0500 Respiratory rate 16 /min Cuba Anna MD Work Phone: [facility] 07-20-2023 06:46-0500 SaO2% (BldA) [Mass fraction] 97 % Cuba Anna MD Work Phone: [facility] 07-20-2023 06:46-0500 Systolic blood pressure 148 mm[Hg] Cuba Anna MD Work Phone: [facility] 07-19-2023 18:50-0500 Body height 157.5 cm Cuba Anna MD Work Phone: [facility] 07-19-2023 18:50-0500 Body mass index (BMI) [Ratio] 43.71 kg/m2 Cuba Anna MD Work Phone: [facility] 07-19-2023 18:50-0500 Body temperature 98.01 [degF] Cuba Anna MD Work Phone: [facility] 07-19-2023 18:50-0500 Body weight 108.41 kg Cuba Anna MD Work Phone: [facility] 09-06-2022 10:13-0400 Diastolic blood pressure 75 mm[Hg] Linden Fuentes MD Work Phone: [facility] 09-06-2022 10:13-0400 Heart rate 69 /min Linden Fuentes MD Work Phone: [facility] 09-06-2022 10:13-0400 Respiratory rate 15 /min Lind[facility] Fuentes [facility] 09-06-2022 10:13-0400 SaO2% (BldA) [Mass fraction] 100 % Linden Fuentes MD Work Phone: [facility] 09-06-2022 10:13-0400 Systolic blood pressure 143 mm[Hg] Linden Fuentes MD Work Phone: [facility] 09-06-2022 05:33-0400 Body temperature 98.2 [degF] Linden Fuentes MD Work Phone: [facility] 03-12-2022 19:37-0400 Body temperature 98.71 [degF] BETY Jha MD Work Phone: [facility] 03-12-2022 19:37-0400 Diastolic blood pressure 68 mm[Hg] BETY Jha MD Work Phone: [facility] 03-12-2022 19:37-0400 Heart rate 73 /min BETY Jha MD Work Phone: [facility] 03-12-2022 19:37-0400 Respiratory rate 16 /min BETY Jha MD Work Phone: [facility] 03-12-2022 19:37-0400 SaO2% (BldA) [Mass fraction] 97 % BETY Jha MD Work Phone: [facility] 03-12-2022 19:37-0400 Systolic blood pressure 151 mm[Hg] BETY Jha MD Work Phone: [facility] 03-08-2022 20:15-0400 Body height 165.1 cm BETY Jha MD Work Phone: [facility] 03-08-2022 11:49-0400 Body mass index (BMI) [Ratio] 35.45 kg/m2 BETY Jha MD Work Phone: [facility] 03-08-2022 11:49-0400 Body weight 96.62 kg BETY Jha MD Work Phone: [facility] 09-26-2021 11:23-0400 Body weight 99.34 kg Baudilio Sultana MD Work Phone: [facility] 09-26-2021 11:23-0400 Diastolic blood pressure 72 mm[Hg] Baudilio Sultana MD Work Phone: [facility] 09-26-2021 11:23-0400 Heart rate 68 /min Baudilio Sultana MD Work Phone: [facility] 09-26-2021 11:23-0400 Systolic blood pressure 142 mm[Hg] Baudilio Sultana MD Work Phone: [facility] Encounters Encounter Date Encounter Type Care Provider Facility Start: 05-03-2025 ambulatory [facility] Facility:[facility] Start: 05-01-2025 ambulatory GILMER COTTON Facility: [facility] Start: 04-26-2025 End: 04-26-2025 ambulatory SOFY SAGASTUME Facility:[facility] Start: 04-20-2025 ambulatory [facility] Facility:[facility] Start: 04-05-2025 End: 04-05-2025 ambulatory [facility] Facility:[facility] Start: 03-21-2025 Registered Referred Min Marroquin MD [facility] Start: 03-20-2025 End: 03-21-2025 ambulatory GILMER COTTON Facility:[facility] Start: 03-08-2025 ambulatory [facility] Facility:[facility] Start: 03-08-2025 Registered Referred Min Marroquin MD [facility] Start: 03-02-2025 Registered Referred Min Ch Eduardo [facility] Start: 03-02-2025 End: 03-02-2025 ambulatory [facility] Facility:[facility] Start: 02-21-2025 Registered Referred Min Ch Eduardo [facility] Start: 02-21-2025 End: 02-21-2025 ambulatory [facility] Facility:[facility] Start: 02-13-2025 End: 02-13-2025 ambulatory GILMER COTTON Facility:[facility] Start: 02-07-2025 Registered Referred Min Ch Eduardo [facility] Start: 02-07-2025 End: 02-07-2025 ambulatory [facility] Facility:[facility] Start: 02-01-2025 Registered Referred Min Ch [facility] Start: 02-01-2025 End: 02-01-2025 ambulatory [facility] Facility:[facility] Start: 01-31-2025 Registered Referred Min Marroquin MD [facility] Start: 01-31-2025 End: 01-31-2025 ambulatory [facility] Facility:[facility] Start: 01-24-2025 Registered Referred Min Marroquin MD [facility] Start: 01-24-2025 End: 01-24-2025 ambulatory Min ALBRECHT Facility:[facility] Start: 01-17-2025 ambulatory Min ALBRECHT Facil ity:[facility] Start: 01-17-2025 Registered Referred Min Marroquin MD [facility] Start: 01-10-2025 End: 01-10-2025 ambulatory GILMER COTTON Facility:[facility] Start: 01-09-2025 ambulatory Min ALBRECHT [facility] [facility] Start: 01-09-2025 Registered Referred Min Marroquin MD [facility] Start: 01-03-2025 End: 01-03-[address] Baudilio Sultana MD Work Phone: [phone] [place] [address] Start: 01-03-2025 End: 01-03-2025 Departed Referred Min ChEduardo [facility] Start: 01-03-2025 Registered Referred Min Ch [facility] Start: 01-03-2025 End: 01-03-2025 ambulatory Min ALBRECHT Facility:[facility] Start: 01-02-2025 Registered Referred Min Ch Eduardo [facility] Start: 01-02-2025 End: 01-02-2025 ambulatory Min ALBRECHT Facility:[facility] Start: 12-19-2024 End: 12-19-[address] Baudilio Sultana MD Work Phone: [facility] Start: 12-19-2024 End: 12-19-2024 Departed Referred Min [facility]Eduardo [facility] Start: 12-19-2024 Registered Referred Min Ch Eduardo [facility] Start: 12-19-2024 End: 12-19-2024 ambulatory [facility] Facility:[facility] Start: 12-06-2024 End: 12-06-2024 ambulatory RAF CASEY Facility:[facility] Start: 12-05-2024 End: 12-05-[address] Baudilio Sultana MD Work Phone: -[facility] Start: 12-05-2024 End: 12-05-2024 Departed Referred Min Marroquin MD -[facility] Obd[facility]io petersen Start: 12-05-2024 End: 12-05-2024 ambulatory Baudilio Sultana Facility:[facility] Start: 11-09-2024 End: 01-09-2025 Follow-up encounter Steven Pelaez Work Phone: Podiatry Start: 11-08-2024 ambulatory STEVEN Jones ty:[phone] Start: 11-04-2024 End: 11-04-2024 ambulatory GILMER COTTON Facility:[facility] Start: 11-01-2024 End: 01-01-2025 Follow-up encounter Steven Pelaez Work Phone: Podiatry Start: 10-27-2024 ambulatory RAF CASEY Facility:[facility] Start: 10-27-2024 End: 10-27-2024 Subsequent hospital visit by physician [facility] Work Phone: Radiology Comment on above: Sprain of left ankle , unspecified ligament, initial encounter [S93.402A] Start: 10-27-2024 End: 10-27-2024 Patient encounter procedure Steven Pelaez Work Phone: Podiatry Comment on above: Sprain of left ankle , unspecified ligament, initial encounter (Primary Dx); Ankle instability, left; Chronic pain of left ankle Start: 10-27-2024 End: 10-27-2024 ambulatory RAF CASEY Facility:[facility] Start: 10-19-2024 End: 10-19-2024 Patient encounter procedure Mendel Sharma PA-C Work Phone: Orthopaedics Comment on above: Primary osteoarthrit is of left knee (Primary Dx) Start: 10-19-2024 End: 10-19-2024 ambulatory RAF CASEY Facility:[facility] Start: 10-10-2024 End: 10-10-2024 ambulatory Travis Patterson APRN.[facility] Work Phone: [facility] Comment on above: Fall at home, initia l encounter (Primary Dx); Cerebral palsy, unspecified type (HCC); Brachial neuritis or radiculitis; Acute pain of right shoulder; Left knee pain, unspecified chronicity; Diabetic polyneuropathy associated with type 2 diabetes mellitus (HCC); Neuropathy; Type 2 diabetes, controlled, with neuropathy (HCC); Atherosclerosis of [place] coronary artery of [place] heart without angina pectoris; Other pulmonary embolism without acute cor pulmonale, unspecified chronicity (HCC); Debility Start: 10-10-2024 End: 10-10-2024 Telemedicine consultation with patient Travis Patterson APRN.[facility] Work Phone: [facility] Start: 10-05-2024 End: 10-05-2024 ambulatory Travis Patterson APRN.[facility] Work Phone: [facility] Comment on above: Fall at home, initia l encounter (Primary Dx); Cerebral palsy, unspecified type (HCC); Brachial neuritis or radiculitis; Acute pain of right shoulder; Left knee pain, unspecified chronicity; Diabetic polyneuropathy associated with type 2 diabetes mellitus (HCC); Type 2 diabetes, controlled, with neuropathy (HCC); Neuropathy; Atherosclerosis of [place] coronary artery of [place] heart without angina pectoris; Other pulmonary embolism without acute cor pulmonale, unspecified chronicity (HCC); Debility Start: 10-05-2024 End: 10-05-2024 Telemedicine consultation with patient Travis Patterson APRN.[facility] Work Phone: [facility] Start: 09-30-2024 End: 09-30-2024 ambulatory Travis Patterson APRN.[facility] Work Phone: [facility] Comment on above: Fall at home, initia l encounter (Primary Dx); Cerebral palsy, unspecified type (HCC); Brachial neuritis or radiculitis; Acute pain of right shoulder; Left knee pain, unspecified chronicity; Diabetic polyneuropathy associated with type 2 diabetes mellitus (HCC); Neuropathy; Type 2 diabetes, controlled, with neuropathy (HCC); Atherosclerosis of [place] coronary artery of [place] heart without angina pectoris; Other pulmonary embolism without acute cor pulmonale, unspecified chronicity (HCC); Debility Start: 09-30-2024 End: 09-30-2024 Telemedicine consultation with patient Travis Patterson APRN.[facility] Work Phone: [facility] Start: 09-21-2024 End: 09-21-2024 ambulatory GILMER Bojorquez [place] Facility:[facility] Start: 09-18-2024 End: 09-28-2024 ambulatory RAF CASEY Facility:[facility] Start: 09-18-2024 End: 09-18-2024 Emergency department patient visit RAF CASEY Facility:[facility] Start: 09-02-2024 End: 09-02-2024 ambulatory GILMER COTTON Facility:[facility] Start: 08-05-2024 End: 08-05-2024 ambulatory GILMER Bojorquez [place] Facility:[facility] Start: 07-09-2024 End: 07-09-2024 Subsequent hospital visit by physician [facility] X[facility] Port[facility] Radiology Comment on above: Arrived Start: 07-09-2024 End: 07-10-2024 Emergency department patient visit Александр Jha MD Work Phone: [facility] ED Comment on above: Acute cough (Primary Dx) Start: 06-30-2024 End: 06-30-2024 ambulatory GILMER COTTON Facility:[facility] Start: 05-02-2024 End: 05-02-2024 ambulatory GILMER Bojorquez [place] Facility:[facility] Start: 02-10-2024 End: 02-10-2024 Office outpatient visit 10 minutes Isaac Chicas DO Work Phone: [facility] Comment on above: Pressure ulcer of ri ght foot, stage 3 (HCC) (Primary Dx) Start: 02-10-2024 End: 02-10-2024 ambulatory [facility] Start: 01-27-2024 End: 01-27-2024 Subsequent hospital visit by physician Isaac Chicas DO Work Phone: [facility] Comment on above: Pressure ulcer of ri ght foot, stage 3 (HCC) (Primary Dx) Start: 01-27-2024 End: 01-27-2024 ambulatory [facility] Start: 01-20-2024 End: 01-20-2024 Office outpatient new 30 minutes Isaac Chicas DO Work Phone: [facility] Comment on above: Pressure ulcer of ri ght foot, stage 3 (HCC) (Primary Dx) Start: 01-20-2024 End: 01-20-2024 ambulatory [facility] Start: 12-15-2023 End: 12-15-2023 Subsequent hospital visit by physician [facility] Radiology Comment on above: Arrived Start: 12-15-2023 End: 12-16-2023 Emergency department patient visit Gloria Bangura DO Work Phone: [facility] ED Comment on above: Diabetic ulcer of le ft foot associated with diabetes mellitus due to underlying condition, unspecified part of foot, unspecified ulcer stage (HCC) (Primary Dx); Left leg cellulitis Start: 07-19-2023 End: 07-19-2023 Subsequent hospital visit by physician [facility] Ct Exam Room [address] [facility] [address] Comment on above: Arrived Start: 07-19-2023 End: 07-19-2023 Emergency department patient visit CUBA ANNA [facility] Start: 07-19-2023 End: 07-20-2023 Emergency department patient visit Cuba Anna MD Work Phone: [facility] ED Comment on above: Frequent falls (Prim liv Dx); Right hip pain; Contusion of right knee, initial encounter; Osteoarthritis, unspecified osteoarthritis type, unspecified site Start: 05-04-2023 Orders Only Chasidy Heredia MA [facility] [place] Start: 09-06-2022 End: 09-07-2022 Emergency department patient visit LINDEN FUENTES [facility] Start: 09-06-2022 End: 09-06-2022 Subsequent hospital visit by physician [facility] Comment on above: Arrived Start: 09-06-2022 End: 09-06-2022 Emergency department patient visit Linden Fuentes MD Work Phone: [facility] EM[facility]GENCY [facility]PT Comment on above: Fall, initial encoun ter (Primary Dx) Start: 04-15-2022 Telephone encounter Baudilio Sultana MD Work Phone: [facility] [place] Comment on above: Insurance Authorizat ion Start: 03-08-2022 End: 03-13-2022 Evaluation and management of inpatient J Candida Jha MD Work Phone: [facility] 1E MED SURG Comment on above: [...] Nursing evaluation of patient and report Nurse/Benigno [facility] Work Phone: Podiatry Comment on [...] m caregiver Steven Pelaez Work Phone: [facility] Start: 02-10-2022 End: 02-10-2022 Subsequent hospital visit by physician Ramos [facility] [place] Work Phone: Radiology Comment [...] Sultana MD Work Phone: [facility] [place] Start: 11-26-2021 Telephone encounter Baudilio Sultana MD Work Phone: [facility] [place] Comment on above: Anticoagulation Start: 11-19-2021 Telephone encounter Baudilio Sultana MD Work Phone: [facility] [place] Comment on above: Anticoagulation Start: 11-05-2021 Telephone encounter Baudilio Sultana MD Work Phone: [facility] [place] Comment on above: Anticoagulation Start: 10-30-2021 Telephone encounter Baudilio Sultana MD Work Phone: [facility] [place] Comment on above: Anticoagulation Start: 10-15-2021 Telephone encounter aBudilio Sultana MD Work Phone: [facility] [place] Comment on above: Anticoagulation Start: 10-14-2021 ambulatory Baudilio Sultana MD Work Phone: [facility] [place] Comment on above: Question regarding C arotid Dup Dustin OP Start: 10-14-2021 End: 10-14-2021 Subsequent hospital visit by physician Bone Density [facility] Work Phone: Radiology Comment on above: Disorder of bone and cartilage [M89.9, M94.9] Start: 10-08-2021 Telephone encounter Baudilio Sultana MD Work Phone: [facility] [place] Comment on above: Anticoagulation Refill Request Start: 10-01-2021 Telephone encounter Baudilio Sultana MD Work Phone: [facility] [place] Comment on above: Patient Question; Or ders Anticoagulation Start: 09-27-2021 Telephone encounter Baudilio Sultana MD Work Phone: [facility] [place] Comment on above: Results Start: 09-26-2021 End: 09-26-2021 Patient encounter procedure [facility] Comment on above: Cerebral palsy, unsp ecified [...] MD Work Phone: [facility] [place] Comment on above: Anticoagulation Start: 09-18-2021 Telephone encounter Baudilio Sultana MD Work Phone: [facility] Comment on above: Anticoagulation Start: 09-16-2021 Chart abstracting Baudilio Pretty MD Work Phone: [facility] [place] Start: 09-16-2021 End: 09-16-2021 Patient encounter procedure [facility] Start: 2021 Telephone encounter Baudilio Sultana MD Work Phone: [facility] Comment on above: Anticoagulation Start: 01-29-2021 End: 01-29-2021 Subsequent hospital visit by physician Xr [facility] [place] Work Phone: Radiology Comment on above: Chronic right should er pain [M25.511, G89.29] Start: 04-12-2018 Ambulatory DAVID ERWIN Facility :[facility] Start: 08-12-2017 End: 08-12-2017 Ambulatory DAVID ERWIN [facility] Procedures Date Procedure Procedure Detail Performing [...] d ev cleared fda spec home use [facility] Work Phone: Start: 03-12-2022 Gluc bld gluc mntr d ev cleared fda spec home use [facility] Work Phone: Start: 03-12-2022 Iadna-dna/rna gi pth [...] Start: 03-11-2022 POCT COVID-19, ANTIGEN Katya Lezama GEOSPATIAL ENGINEER - [employer] Work Phone: Start: 03-11-2022 Gluc bld gluc [...] Thyrotropin [Units/v olume] in Serum or Plasma [facility] 1 Start: 03-09-2022 BASIC METABOLIC PANE L W/ REFLEX TO MG FOR LOW K Katya Lezama GEOSPATIAL ENGINEER - [employer]PER[employer] Work Phone: Start: 03-09-2022 Drug screen quantita tive vancomycin Kushal Gaines [employer] Work Phone: Start: 03-09-2022 Hemoglobin glycosylated a1c Katya Lezama GEOSPATIAL ENGINEER - [employer]PER[employer] Work Phone: Start: 03-09-2022 PROTIME/INR & PTT Merritt Lezama GEOSPATIAL ENGINEER - [employer]PERVISOR [employer] Work Phone: Start: 03-08-2022 Gluc bld gluc mntr d ev cleared fda spec home use Александр Jha MD Work Phone: Start: 03-08-2022 End: 03-08-2022 Gluc bld gluc mntr dev cleared fda spec home use Kushal Gaines [employer] Work Phone: Start: 03-08-2022 Radex ankle complete minimum 3 views Katya Lezama GEOSPATIAL ENGINEER - [employer]PERVISOR [employer] Work Phone: Start: 03-08-2022 BEDSIDE SPIROMETRY Luizaua jun Lezama GEOSPATIAL ENGINEER - SUPERVISOR [employer] Work Phone: Start: 03-08-2022 Culture bacterial quanttative [...] Start: 09-25-2025 Creatinine measurement Serum Creatin ine [facility] Start: 02-20-2025 Influenza vaccination C [facility] Start: 12-14-2024 Complete blood count Hemoglobin/Jackson tocrit [facility] Start: 12-14-2024 Creatinine measurement Serum Creatin ine [facility] Start: 12-14-2024 Diabetes: Estimated Glomerular Filtration Rate for [facility]ney Health Diabetes: Estimated Glomerular Filtration Rate for Kidney Health [facility] Start: 12-07-2024 End: 12-07-2024 Patient encounter procedure 12/07/2024 3:40 PM EDT Office Visit Endocrinology [address] [place] [id number] Ravi Michael MD [address] [place] [address] Diabetes Endocrinology Comment on above: Diabetes Start: 11-08-2024 End: 11-08-2024 Patient encounter procedure 11/08/2024 11:00 AM EDT Appointment MRI Scan [address] [place] [address] Chronic pain of left ankle [M25.572, G89.29 MRI Scan Comment on above: Chronic pain of left ankle [M25.572, G89.29 Start: 10-27-2024 End: 10-27-2024 Patient encounter procedure 10/27/2024 11:15 AM EDT Office Visit Podiatry [address] [place], [place] [phone] Steven Pelaez [address] [place], [place] [phone] left foot Podiatry Comment on above: left foot Start: 10-19-2024 End: 10-19-2024 Patient encounter procedure Orthopaedics Comment on above: Cerebral palsy with knee injury unable to stand pivot. Exam negative for laxity and patient going to [facility] for rehab Cerebral palsy with left knee injury unable to stand pivot Start: 06-22-2024 Advance Directive Discussion Advance Directive Discussion [facility] Start: 06-22-2024 Medicare Advantage Annual Wellness Visit Medicare Advantage Annual Wellness Visit [facility] Start: 02-21-2024 Covid-19 Vaccine ( season) Covid-19 Vaccine ( season) [facility] Start: 02-21-2024 Influenza vaccination [facility] Start: 02-03-2024 End: 02-03-2024 Patient encounter procedure 02/03/2024 10:00 AM EDT Appointment [facility] [address] [place] [address] Isaac Chicas, [address] [place] [address] [facility] Start: 01-27-2024 End: 08-07-2024 Patient encounter procedure 01/27/2024 1:15 PM EDT Appointment [facility] [address] [place] [address] Isaac Chicas, DO [address] [place] [address] [facility] Start: 06-22-2023 Advance Directive Discussion Advance Directive Discussion [facility] Start: 06-22-2023 Medicare Advantage Annual Wellness Visit Medicare Advantage Annual Wellness Visit [facility] Start: 03-09-2023 Hemoglobin A1c measurement Diabetes: Hemoglobin A1C [facility] Start: 03-09-2023 Thyroid stimulating hormone measurement TSH Level [facility] Start: 02-20-2023 Covid-19 Vaccine () Covid-19 Vaccine () [facility] Start: 02-20-2023 COVID-19 Vaccine () COVID-19 Vaccine () [facility] Start: 02-20-2023 Influenza vaccination Influenza Vacc ine (#1) [facility] Start: 01-04-2023 Colonoscopy COLONOSCOPY [facility] Start: 01-04-2023 COLORECTAL CANCER SCREENING COLORECTAL CANCER SCREENING [facility] Start: 01-04-2023 Screening for malign ant neoplasm of colon [facility] Start: 09-26-2022 ANNUAL PCP TEAM CURER FOAM RUBBER DANYELLE DISEASE VISIT ANNUAL PCP TEAM CHRONIC DISEASE VISIT [facility] Start: 09-26-2022 Serum Creatinine Serum Creatinine Cl [facility] Start: 09-16-2022 Hepatitis B screening URINE ALBUMIN:CREATININE RATIO [facility] Start: 09-06-2022 Hemoglobin A1c measurement HbA1C [facility] Start: 09-06-2022 Hemoglobin A1c/Hemoglobin.total in Blood HBA1C [facility] Start: 06-24-2022 ANNUAL PCP TEAM CURER FOAM RUBBER DANYELLE DISEASE VISIT ANNUAL PCP TEAM CHRONIC DISEASE VISIT [facility] Start: 06-22-2022 ADVANCE DIRECTIVE DISCUSSION ADVANCE DIRECTIVE DISCUSSION [facility] Start: 04-18-2022 BP CONTROLLED (<130/80) BP CONTROLLE D (<130/80) [facility] Start: 04-12-2022 COVID-19 Vaccine (4 - Booster) COVID-19 Vaccine (4 - Booster) [facility] Start: 03-13-2022 End: 03-11-2023 Protime-INR Protime-INR Lab Routine PE (pulmonary thromboembolism) (HCC) Expected: 03/13/2022, Expires: 03/11/2023 [facility] Work Phone: Comment on above: Expected: 03/13/2022 , Expires: 03/11/2023 Start: 02-20-2022 Influenza vaccination C [facility] Start: 02-12-2022 Hemoglobin A1c/Hemoglobin.total in Blood HBA1C [facility] Start: 11-09-2021 3 comp foot exam completed DIABETIC FOOT EXAM [facility] Start: 11-09-2021 Diabetic foot examination Diabetic Foot Exam [facility] Start: 11-08-2021 End: 01-08-2022 Thyrotropin [Units/volume] in Serum or Plasma TSH BLD Lab Routine Acquired hypothyroidism Expected: 11/08/2021, Expires: 01/08/2022 [facility] Work Phone: Comment on above: Expected: 11/08/2021 , Expires: 01/08/2022 Start: 09-26-2021 End: 11-26-2021 Comprehensive metabolic 2000 panel - Serum or Plasma [facility] Work Phone: Comment on above: Expected: 09/26/2021 , Expires: 11/26/2021 Start: 09-26-2021 End: 11-26-2021 Thyrotropin [Units/volume] in Serum or Plasma [facility] Work Phone: Comment on above: Expected: 09/26/2021 , Expires: 11/26/2021 Start: 09-26-2021 End: 11-26-2021 VITAMIN B12 BLOOD [facility] Work Phone: Comment on above: Expected: 09/26/2021 , Expires: 11/26/2021 Start: 09-11-2021 Glaucoma screening Dilated Retinal E xam [facility] Start: 09-11-2021 Hepatitis C antibody , confirmatory test DILATED RETINAL EXAM [facility] Start: 08-29-2021 FECAL OCCULT BLOOD FECAL OCCULT BLOO D [facility] Start: 08-29-2021 Screening for malign ant neoplasm of colon Fecal Occult Blood [facility] Start: 08-01-2021 Hemoglobin A1c/Hemoglobin.total in Blood HBA1C [facility] Start: 07-11-2021 Hepatitis B screening URINE ALBUMIN:CREATININE RATIO [facility] Start: 06-22-2021 ADVANCE DIRECTIVE DISCUSSION ADVANCE DIRECTIVE DISCUSSION [facility] Start: 06-16-2021 COVID-19 VACCINE (5 - Booster) COVID-19 VACCINE (5 - Booster) [facility] Start: 03-21-2021 Hepatitis B surface antibody level LDL CHOLESTEROL [facility] Start: 03-29-2019 Mammography [facility] Start: 03-29-2019 Screening for malign ant neoplasm of breast Mammogram Screening [facility] Start: 12-26-2018 ADVANCE DIRECTIVE DISCUSSION ADVANCE DIRECTIVE DISCUSSION [facility] Start: 03-29-2017 DTaP/Tdap/Td Vaccine s (2 - Td or Tdap) DTaP/Tdap/Td Vaccines (2 - Td or Tdap) [facility] Start: 03-29-2017 Urine microalbumin profile [facility] Start: 09-06-2016 Pneumococcal Vaccine : 65+ Years (1 - PCV) Pneumococcal Vaccine: 65+ Years (1 - PCV) [facility] Start: 2016 BONE DENSITY BONE DENSITY [facility] Start: 05-26-2016 SHINGRIX VACCINE (2 of 3) SHINGRIX VACCINE (2 of 3) [facility] Start: 05-26-2016 Zoster Vaccines (2 o f 3) Zoster Vaccines (2 of 3) [facility] Start: 2011 Hepatitis B Vaccine (1 of 3 - Risk 3-dose series) Hepatitis B Vaccine (1 of 3 - Risk 3-dose series) [facility] Start: 2011 Hepatitis B Vaccines (1 of 3 - Risk 3-dose series) Hepatitis B Vaccines (1 of 3 - Risk 3-dose series) [facility] Start: 2011 RSV Immunization age d 60 or older (1 - 1-dose 60+ series) RSV Immunization aged 60 or older (1 - 1-dose 60+ series) [facility] Start: 2011 RSV Immunization for Adults (1 - Risk 60-74 years 1-dose series) RSV Immunization for Adults (1 - Risk 60-74 years 1-dose series) [facility] Start: 2011 RSV Vaccine (1 - 1-d ose 60+ series) RSV Vaccine (1 - 1-dose 60+ series) [facility] Start: 2011 RSV Vaccine (1 - Ris k 60-74 years 1-dose series) RSV Vaccine (1 - Risk 60-74 years 1-dose series) [facility] Start: 09-06-2001 Zoster Vaccines (1 o f 2) Zoster Vaccines (1 of 2) [facility] Start: 1996 COLOGUARD (FIT-DNA) COLOGUARD (FIT-D NA) [facility] Start: [address] COLONOGRAPHY [facility] Start: 1996 Screening for malign ant neoplasm of colon [facility] Start: 1996 SIGMOIDOSCOPY SIGMOIDOSCOPY [facility] Start: 09-07-1991 Screening for malign ant neoplasm of breast Mammogram [facility] Start: 1991 Screening for malign ant neoplasm of breast Mammogram [facility] Start: 09-06-1970 DTaP/Tdap/Td Vaccine s (1 - Tdap) DTaP/Tdap/Td Vaccines (1 - Tdap) [facility] Start: 1970 DTaP/Tdap/Td vaccine (1 - Tdap) DTaP/Tdap/Td vaccine (1 - Tdap) [facility] Start: 1970 Hepatitis A Vaccines (1 of 2 - Risk 2-dose series) Hepatitis A Vaccines (1 of 2 - Risk 2-dose series) [facility] Start: 09-06-1969 Hepatitis C screening [facility] Start: 1969 Anxiety Screening Anxiety Screening [facility] Start: 1969 BP CONTROLLED (<130/80) BP CONTROLLE D (<130/80) [facility] Start: 1969 Diabetes: Urine Albumin-Creatinine Ratio for [facility]ney [facility] Diabetes: Urine Albumin-Creatinine Ratio for Kidney [facility] Start: 1969 Hepatitis C screening Hepatitis C Sc reening [facility] Start: 1963 Depression Monitoring Depression Mon itoring [facility] Start: 1963 Depression Screening Depression Scre ening [facility] Start: 1961 Diabetic foot examination Diabetes: Foot Exam [facility] [facility] Start: 1961 Glaucoma screening Diabetes: R etinopathy Screening [facility] Start: 1961 Preventive dental service Diabetes: Dental Exam [facility] Start: [birth year]-09-1952 COVID-19 Vaccine (#1) COVID-19 Vacci ne (#1) [facility] Start: 1950 Hepatitis B Vaccines (1 of 3 - 3-dose series) Hepatitis B Vaccines (1 of 3 - 3-dose series) [facility] Start: 1950 Screening for malign ant neoplasm of colon [facility] Start: 1950 Screening for osteoporosis Bone Density Scan [facility] Start: 1950 Lipid panel Lipid Panel [facility] Start: 1950 Medicare Advantage Annual Wellness Visit (AWV) Medicare Advantage Annual Wellness Visit (AWV) [facility] Start: 1950 Screening for malign ant neoplasm of colon [facility] Start: 1950 Screening for osteoporosis Bone Density Scan [facility] Bacteria identified in Blood by Culture [facility] [employer] Work Phone: End: 03-13-2022 Basic metabolic 2000 panel - Serum or Plasma Basic Metabolic Panel Lab Routine Daily for 3 Days starting 03/11/2022 until 03/13/2022, 1 completed [employer] Work Phone: Comment on above: Daily for 3 Days sta rting 03/11/2022 until 03/13/2022, 1 completed End: 03-13-2022 CBC W Auto Differential panel - Blood CBC with Auto Differential Lab Routine Daily for 3 Days starting 03/11/2022 until 03/13/2022, 1 completed [facility] Work Phone: Comment on above: Daily for 3 Days sta rting 03/11/2022 until 03/13/2022, 1 completed Culture, Blood 1 Culture, Blood 1 Microbiology STAT 03/08/2022 1:04 PM EDT [facility] Work Phone: Culture, Blood 2 Culture, Blood 2 Microbiology STAT 03/08/2022 1:04 PM EDT [facility] Work Phone: End: 03-08-2022 Culture, Urine Culture, Urine Microbiology Add-On One Time for 1 Occurrences starting 03/08/2022 until 03/08/2022 [facility] Work Phone: Comment on above: One Time for 1 Occur rences starting 03/08/2022 until 03/08/2022 Dressing Order: Collagen Ag, Mesalt pad; Three times per week; 4x4 gauze, ABDs; Kerlex, Paper tape Dressing Order: Collagen Ag, Mesalt pad; Three times per week; 4x4 gauze, ABDs; Kerlex, Paper tape Wound Ostomy Routine Ordered: 01/20/2024 [employer] Work Phone: Comment on above: Ordered: 01/20/2024 Dressing Order: Collagen, Mesalt pad; Three times per week; ABDs; Kerlex, Paper tape Dressing Order: Collagen, Mesalt pad; Three times per week; ABDs; Kerlex, Paper tape Wound Ostomy Routine Ordered: 01/27/2024 [employer] Work Phone: Comment on above: Ordered: 01/27/2024 End: 10-26-2022 Dxa bone density study 1/> sites axial skel DXA-AXIAL SKELETON Radiology Routine Disorder of bone and cartilage 1 Occurrences starting 09/26/2021 until 10/26/2022 [facility] Work Phone: Comment on above: 1 Occurrences starti ng 09/26/2021 until 10/26/2022 ECG 12 lead ECG 12 lead CV E CG STAT 09/06/2022 3:01 AM EDT [employer] Work Phone: Glucose [Mass/volume ] in Serum or Plasma [employer] Work Phone: Comment on above: 4X Daily (AC & HS) u ntil discontinued starting 03/08/2022 As Needed until disc ontinued starting 03/08/2022 End: 03-08-2022 Initiate Sepsis Narrator Initiate Sepsis Narrator Respiratory Care STAT Once for 1 Occurrences starting 03/08/2022 until 03/08/2022 [facility] Work Phone: Comment on above: Once for 1 Occurrenc es starting 03/08/2022 until 03/08/2022 End: 11-26-2025 MR Ankle - left WO contrast MRI ANKLE WO IVCON LEFT Radiology Routine Chronic pain of left ankle 1 Occurrences starting 10/27/2024 until 11/26/2025 [facility] Comment on above: 1 Occurrences starti ng 10/27/2024 until 11/26/2025 [place] [facility] [place] Initiate Oxygen Therapy Protocol Respiratory Care Routine Daily until discontinued starting 03/08/2022 [facility] Work Phone: Comment on above: Daily until disconti nued starting 03/08/2022 Oxygen therapy [Mini mum Data Set] Initiate Oxygen Therapy Protocol Respiratory Care Routine As Needed until discontinued starting 03/08/2022 [employer] Work Phone: Comment on above: As Needed until disc ontinued starting 03/08/2022 End: 03-19-2022 PROTIME/INR & PTT PROTIME/INR & PTT Lab Routine Daily for 10 Days starting 03/10/2022 until 03/19/2022, 2 completed [facility] Work Phone: Comment on above: Daily for [address] arting 03/10/2022 until 03/19/2022, 2 completed End: 01-17-2023 Screening mammography bi 2-view breast inc cad FUAD SCREENING Radiology Routine Encounter for screening mammogram for breast cancer 1 Occurrences starting 12/18/2021 until 01/17/2023 [facility] Work Phone: Comment on above: 1 Occurrences starti ng 12/18/2021 until 01/17/2023 End: 09-26-2022 US CAROTID ARTERIES [facility] US CAROTID ARTERIES [facility] Vascular Lab Routine Carotid artery disease, unspecified laterality, unspecified type (HCC) 1 Occurrences starting 09/26/2021 until 09/26/2022 [facility] Work Phone: Comment on above: 1 Occurrences starti ng 09/26/2021 until 09/26/2022 End: 03-08-2022 Wound ostomy eval and treat Wound ostomy eval and treat Wound Ostomy Routine One Time for 1 Occurrences starting 03/08/2022 until 03/08/2022 [facility] Work Phone: Comment on above: One Time for 1 Occur rences starting 03/08/2022 until 03/08/2022 End: 11-26-2025 XR Ankle - left AP and Lateral and oblique XR ANKLE GENERAL 3V AP/LAT/OBL LEFT Radiology Routine Sprain of left ankle, unspecified ligament, initial encounter Ankle instability, left 1 Occurrences starting 10/27/2024 until 11/26/2025 [facility] Work Phone: Comment on above: 1 Occurrences starti ng 10/27/2024 until 11/26/2025 XR Ankle - left AP a nd Lateral and oblique XR ANKLE GENERAL 3V AP/LAT/OBL LEFT Radiology Routine Sprain of left ankle, unspecified ligament, initial encounter Ankle instability, left 10/27/2024 12:04 PM EDT [facility] End: 03-12-2023 XR FOOT GENERAL 3V AP/LAT/OBL LEFT XR FOOT GENERAL 3V AP/LAT/OBL LEFT Radiology Routine Diabetic ulcer of toe 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, with fat layer exposed (HCC) 1 Occurrences starting 02/10/2022 until 03/12/2023 [facility] Work Phone: Comment on above: 1 Occurrences starti ng 02/10/2022 until 03/12/2023 End: 02-10-2022 XR FOOT GENERAL 3V AP/LAT/OBL LEFT [facility] Work Phone: Comment on above: 1 Occurrences starti ng 02/10/2022 until 02/10/2022 End: 11-26-2025 XR Tibia and Fibula - left AP and Lateral XR TIBIA FIBULA 2V AP/LAT LEFT Radiology Routine Sprain of left ankle, unspecified ligament, initial encounter Ankle instability, left 1 Occurrences starting 10/27/2024 until 11/26/2025 [facility] Comment on above: 1 Occurrences starti ng 10/27/2024 until 11/26/2025 XR Tibia and Fibula - left AP and Lateral XR TIBIA FIBULA 2V AP/LAT LEFT Radiology Routine Sprain of left ankle, unspecified ligament, initial encounter Ankle instability, left 10/27/2024 12:04 PM EDT [facility] Immunizations Immunization Date Immunization Notes Care Provider Fa awaty 03-14-2022 influenza virus vacc ine, unspecified formulation [address] 12-11-2021 COVID-19, PFIZER Bivalent BOOSTER, (age 12y+), IM, 30 mcg/0.3 mL dose BETY Jha MD Work Phone: [facility] Work Phone: 04-21-2021 COVID-19 vaccine, fu ll dose (MODERNA) Baudilio Sultana MD Work Phone: [facility] 02-21-2021 influenza, high-dose , quadrivalent vaccine (FLUZONE HIGH DOSE QUADRIVALENT) Baudilio Sultana MD Work Phone: [facility] 02-21-2021 influenza virus vacc ine, unspecified formulation Chasidy Heredia MA [facility] 09-25-2020 COVID-19 vaccine, fu ll dose (MODERNA) Baudilio Sultana MD Work Phone: [facility] 09-25-2020 COVID-19, [place] Vaccine , Vaccine Unspecified BETY Jha MD Work Phone: [facility] Work Phone: 09-25-2020 SARS-CoV-2, Unspecified [facility] [address] [facility] 08-28-2020 COVID-19 vaccine, fu ll dose (MODERNA) Baudilio Sultana MD Work Phone: [facility] Work Phone: 08-25-2020 COVID-19 vaccine, fu ll dose (MODERNA) Baudilio Sultana MD Work Phone: [facility] 08-23-2020 COVID-19, [place] Vaccine , Vaccine Unspecified BETY Jha MD Work Phone: [facility] Work Phone: 08-23-2020 SARS-CoV-2, Unspecified [facility] [address] [facility] 03-07-2020 influenza, high-dose , quadrivalent vaccine (FLUZONE HIGH DOSE QUADRIVALENT) Baudilio Sultana MD Work Phone: [facility] 05-04-2019 influenza, high dose seasonal, preservative-free Baudilio Sultana MD Work Phone: [facility] 05-04-2019 pneumococcal polysaccharide vaccine, 23 valent Baudilio Sultana MD Work Phone: [facility] 04-06-2018 influenza, high dose seasonal, preservative-free Baudilio Sultana MD Work Phone: [facility] 03-23-2017 Influenza virus vaccine [facility] 03-31-2016 zoster vaccine, live Baudilio Sultana MD Work Phone: [facility] 03-25-2016 influenza, injectabl e, quadrivalent, contains preservative Baudilio Sultana MD Work Phone: [facility] 03-02-2015 influenza, seasonal, injectable Baudilio Sultana MD Work Phone: [facility] 01-25-2015 pneumococcal conjuga te vaccine, 13 valent Baudilio Sultana MD Work Phone: [facility] 03-23-2014 influenza virus vacc ine, whole virus Baudilio Sultana MD Work Phone: [facility] 01-02-2014 Pneumococcal Vaccine [facility] Work Phone: 01-02-2014 pneumococcal vaccine , unspecified formulation Dr. Baudilio Sultana MD Work Phone: [facility] 12-28-2013 pneumococcal polysaccharide vaccine, 23 valent Baudilio Sultana MD Work Phone: [facility] 03-29-2011 influenza virus vacc ine, unspecified formulation Baudilio Sultana MD Work Phone: [facility] Work Phone: 04-15-2010 influenza virus vacc ine, unspecified formulation Baudilio uSltana MD Work Phone: [facility] Work Phone: 04-19-2009 novel influenza-H1N1 -09, all formulations Baudilio Sultana MD Work Phone: [facility] Work Phone: 04-12-2009 influenza virus vacc ine, unspecified formulation Baudilio Sultana MD Work Phone: [facility] Work Phone: 04-05-2008 influenza virus vacc ine, unspecified formulation Baudilio Sultana MD Work Phone: [facility] 04-19-2007 influenza virus vacc ine, unspecified formulation Baudilio Sultana MD Work Phone: [facility] Work Phone: 03-29-2007 tetanus toxoid, redu alfredito diphtheria toxoid, and acellular pertussis vaccine, adsorbed Baudilio Sultana MD Work Phone: [facility] Work Phone: 04-29-2006 influenza virus vacc ine, unspecified formulation Baudilio Sultana MD Work Phone: [facility] Work Phone: 04-03-2003 pneumococcal polysaccharide vaccine, 23 valent Baudilio Sultana MD Work Phone: [facility] Work Phone: 04-04-1998 pneumococcal polysaccharide vaccine, 23 valent Baudilio Sultana MD Work Phone: [facility] Payers Date Payer Category Payer Self-pay [id number] 2023 Medicare HMO [employer]VER[employer]RE [id number] 2023 Medicaid HMO [employer] Wolff EDICAID ONLY Member Subscriber Plan / Payer (Effective 2023-Present) Name: Randolph Hunter Relation to Subscriber: Self Name: Randolph Hunter Payer ID: [id number] (NAIC) Group ID: [id number] Type: Medicaid HMO Address: [place] [id number] 2022 Medicare [id number] 2022 Medicare (Managed Care) [facility] DUAL COMPLETE HMO POS SNP [id number] 2022 Medicare [id number] 2021 Medicaid [id number] 2021 Medicaid [facility] MEDICAID MYC ARE [facility] MEDICAID [id number] 2021-Present [phone] [address] [place] [address] Medicaid [id number] 2021 Medicaid [id number] 2021 Medicare [id number] 2021 Medicare [id number] 2021 Medicaid MEDICAID [facility] MEDICAID [id number] 2021-Present [phone] [address] [place] [address] Medicaid [id number] 2020 Private Health Insurance 2003 Unknown [facility] [id number] PFNAN [id number] 1990 Medicare [id number] 1951 Unknown [id number]. 668 Medicare [id number] Medicare [employer] [id number] Private Health Insurance [facility] [id number] Unknown [id number] Unknown [id number] Unknown [id number] 462 Unknown [id number]. 462 Unknown [id number]. 462 Unknown [id number]. 462 Unknown [id number] 2.840.1.299080.3.579.2. 462 Unknown [id number] 2.840.1.702481.3.579.2. 462 Unknown [id number]. 462 Unknown [id number]. 462 Unknown [id number]. 462 Unknown [id number] 2.840.1.862424.3.579.2. 462 Unknown [id number] 2.840.1.238544.3.579.2. 462 Unknown [id number]. 462 Unknown [id number] [id number]. 462 Unknown [id number] [id number]. 462 Unknown [id number] [id number]. 462 Unknown [id number] [id number]. 462 Unknown [id number]. 462 Social History Date Type Detail Facility Start: 10-09-2016 End: 10-09-2021 Tobacco smoking status NHIS Never smoked tobacco [facility] Start: 08-15-2021 End: 10-27-2024 Alcohol intake Current drinker of alcohol (finding) [facility] Start: 01-02-2020 End: 09-06-2022 History SDOH Alcohol Frequency 2 [facility] Start: 01-02-2020 End: 09-06-2022 History SDOH Alcohol Std Drinks 1 [facility] Start: 01-02-2020 History SDOH Social Connections Phone 5 [facility] Start: 01-02-2020 History SDOH Social Connections Meetings 98 [facility] Start: 01-02-2020 History SDOH Social Connections Living 3 [facility] Start: 01-02-2020 History SDOH Physical Activity DPW 0 [facility] Start: 01-02-2020 History SDOH Stress 4 [facility] Start: 01-02-2020 Education 15 [facility] Start: 10-09-2016 End: 10-19-2024 Tobacco Comment Lived with 2 smoking parents for 18 years. Spouse non-smoke. [facility] Start: 1950 Sex Assigned At Not on file [facility] Start: 12-15-2020 End: 09-06-2022 Exposure to SARS-CoV-2 (event) Not sure [facility] Start: 04-22-2021 Tobacco smoking status NHIS Unknown if ever smoked [facility] Work Phone: Start: 02-27-2021 Rare [facility] Start: 02-27-2021 None [facility] Start: 06-26-2017 Spouse/ Significant Other [facility] Start: 02-27-2021 Non-smoker [facility] Start: 1950 End: 1950 Sex Assigned At Female [facility] Work Phone: Start: 10-04-2021 End: 03-10-2022 Exposure to SARS-CoV-2 (event) Unable to assess [facility] Start: 10-09-2016 End: 10-19-2024 Tobacco use and exposure Smokeless tobacco non-user [facility] Work Phone: Start: 03-08-2022 History SDOH Alcohol Comment 1 PER YEAR [facility] Work Phone: Start: 01-02-2020 End: 10-27-2024 History of Social function [facility] Start: 01-02-2020 End: 10-27-2024 Social connection and isolation panel [facility] Do you belong to any clubs or organizations such as scientology groups, unions, fraternal or athletic groups, or school groups? No [facility] How often do you att end meetings of the clubs or organizations you belong to? Patient refused [facility] Are you now , , , , never or living with a partner? [facility] How often to you hav e a drink containing alcohol? Monthly or less [facility] How many standard dr inks containing alcohol do you have on a typical day? 1 or 2 [facility] How often do you hav e 6 or more drinks on 1 occasion? Never [facility] How hard is it for y ou to pay for the very basics like food, housing, medical care, and heating Not very hard [facility] Do you feel stress - tense, restless, nervous, or anxious, or unable to sleep at night because your mind is troubled all the time - these days [OSQ] Rather much [facility] (I/We) worried pe[place] er (my/our) food would run out before (I/we) got money to buy more. Sometimes true [facility] The food that (I/we) bought just didn't last, and (I/we) didn't have money to get more. Never true [facility] Start: 12-03-2021 Gender identity Identifies as female gender (finding) [facility] Start: 07-09-2024 Alcohol Comment occasional [facility] Start: 04-03-2022 Sex Female (finding) [facility] Medical Equipment Procedure Code Equipment Code Equipment Original Text Equipment Identifier Dates Reinaldo Bn Smplx Hv Fd - [id number] Start: 12-26-2013 Reinaldo Bn Smplx Hv Fd - [id number] Start: 12-26-2013 Comp Fem 3 Rt Kn Reinaldo Ps Pfc - [id number] Start: 12-26-2013 Ins Tib Xlnk - [id number] Start: 12-26-2013 Comp Tibtry 3 Kn Reinaldo Mdlr Sig - [id number] Start: 12-26-2013 Dome Pat 38mm Pf c Sig Std Kn - [id number] Start: 12-26-2013 [id number], [id number], [id number], [id number], [id number], [id number] Start: 01-04-2018 End: 07-24-2021 Comment on above: [...] 01/25/2015 11:16 AM Lora Alegria Ma No [facility] 01-25-2015 Are you blind, or do you have serious difficulty seeing, even when wearing glasses Yes 01/25/2015 11:16 AM Lora Alegria Ma Yes [facility] 01-25-2015 Do you have serious difficulty walking or climbing stairs Yes 01/25/2015 11:16 AM Lora Alegria Ma Yes [facility] 01-25-2015 Do you have difficul ty dressing or bathing Yes 01/25/2015 11:16 AM Lora Alegria Ma Yes [facility] 01-25-2015 Because of a physica l, mental, or emotional condition, do you have difficulty doing errands alone such as visiting a physician's office or shopping Yes 01/25/2015 11:16 AM EDT Lora Acuna Ma Yes [facility] Mental Status Date Assessment Result Facility 01-25-2015 Because of a physica l, mental, or emotional condition, do you have serious difficulty concentrating, remembering, or making decisions No 01/25/2015 11:16 AM EDT Lora Acuna Ma No [facility] Clinical Notes 01-04-2018 to 05-01-2025 Felix David RT(R) - 10/27/2024 11:40 AM Steven Sutton - 10/27/2024 11:29 AM Del Shultz RN - 10/27/2024 10:44 AM EDTPatient InstructionsDischarge InstructionsAttachments Note Date & Type Note Facility 05-01-2025 Note HNO ID: [id number] Author: GILMER COTTON, PhD Service: ? Author Type: Psychologist Type: Progress Notes Filed: 05/01/2025 12:14 Note Text: [facility] Progress Note Randolph Hunter 05/01/2025 [id number] PROVIDER: Gilmer Cotton, PhD CPT Code: Time: [...] directed once a month. blood sugar diagnostic (Dobns AgencyTOUCH VERIO TEST STRIPS) test strip Test blood [...] Psychiatric Medication Issues: see med record DIAGNOSIS: [place] I: Depressive Disorder rec (more content not included)... [facility] 04-26-2025 Note HNO ID: [id number] Author: SOFY SAGASTUME PA-C Service: ? Author Type: Physician Electric Trucker Type: Progress Notes Filed: 04/26/2025 10:59 Note [...] weeks ago. They're urging her to use [id number], but she's not comfortable. - Engages in exercises independently, including lifting a 5-pound bar daily. -not currently in PT/OT/speech Patient Entered Data PROMIS No data to display Spasticity NRS No data to display Spasm Scale No data to display Global Impression of Change No data to display Safety concerns regarding living situations and safety at home: No resides at [facility] Risk of falls: Yes during transfers Review [...] 4 Knee extension (more content not included)... [facility] 03-20-2025 Note HNO ID: [id number] Author: GILMER COTTON, PhD Service: ? Author Type: Psychologist Type: Progress Notes Filed: 03/20/2025 16:09 Note Text: [facility] Progress Note Randolph Hunter 03/20/2025 [id number] PROVIDER: Gilmer Cotton, PhD CPT Code: Time: [...] directed once a month. blood sugar diagnostic (Grid[employer] VERIO TEST STRIPS) test strip Test blood [...] Psychiatric Medication Issues: see med record DIAGNOSIS: [place] I: Depressive Disorder recurrent Morbidly Obese CP [place] II : Deferred [place] III : See (more content not included)... [facility] 02-13-2025 Note HNO ID: [id number] Author: GILMER COTTON, PhD Service: ? Author Type: Psychologist Type: Progress Notes Filed: 02/13/2025 15:57 Note Text: [facility] Progress Note Randolph Hunter 02/13/2025 [id number] PROVIDER: Gilmer Cotton, PhD CPT Code: Time: 50 minutes Setting: Due to the federal emergency declaration and the need for ongoing mental health services, the following visit was completed virtually and informed consent obtained orally to reduce the risk of COVID-19 exposure. Oral consent to services related to virtual visits was obtained after information was sent via Hymite or read to patient if [employer]esthart not available. Parties Present: Patient Treatment Modality/Interventions: [...] better [place] is now in apartments near [facility] 2 children ... 11 grandchildren Khadra due [...] directed once a month. blood sugar diagnostic (Proclivity SystemsUCH VERIO TEST STRIPS) test strip Test blood [...] breathe hourly while awake. PT/INR test meter (Jooobz!GUCHEK XS PRO) misc Check Protim (more content not included)... [facility] 01-10-2025 Note HNO ID: [id number] Author: GILMER COTTON, PhD Service: ? Author Type: Psychologist Type: Progress Notes Filed: 01/10/2025 12:09 Note Text: [facility] Progress Note Randolph L Johan 01/10/2025 [id number] PROVIDER: Gilmer Cotton, PhD CPT Code: Time: [...] Issues: No change from previous appointment DIAGNOSIS: [place] I: Depressive Disorder recurrent Morbidly Obese CP [place] II : Deferred [place] III : See medical history [place] IV: Health [place] V: GAF 60-51 Moderate symptoms or moderate difficulty in (more content not included)... [facility] 12-06-2024 Note HNO ID: [id number] Author: GILMER COTTON, PhD Service: ? Author Type: Psychologist Type: Progress Notes Filed: 12/06/2024 12:04 Note Text: [facility] Progress Note Randolph Hunter 12/06/2024 [id number] PROVIDER: Gilmer Cotton, PhD CPT Code: Time: [...] illness Pt moved now a week at [facility] [place] so far and she believes it [...] Assisted Living room while she is in [facility] rooms MEDICATIONS: Per medical record: Current [...] directed once a month. blood sugar diagnostic (GridBridge VERIO TEST STRIPS) test strip Test blood [...] Issues: No change from previous appointment DIAGNOSIS: [place] I: Depressive Disorder recurrent Morbidly Obese CP [place] II : Deferred [place] III : See medical history [place] IV: Health [place] V: GAF 60-51 Moderate symptoms or moderate difficulty in social, (more content not included)... [facility] 11-08-2024 Note HNO ID: [id number] Author: SHALINI MERA RT(R) Service: ? Author [...] PATIENT PRESENTS WITH AN IMPLANTABLE OR ATTACHED ECONOMIC ANALYST: No RADIOLOGY DEPARTMENT: MR; Exam(s) Completed: Lower MSK: Ankle/Hind Foot, left. Lavender Administered: No PERIPHERAL IV DATA: Not applicable SIGNED BY: RT Faustina(R) November 08, 2024 11:14 AM [facility] 11-04-2024 Note HNO ID: [id number] Author: GILMER COTTON, PhD Service: ? Author Type: Psychologist Type: Progress Notes Filed: 11/04/2024 11:56 Note Text: [facility] Department Progress Note Randolph Hunter 11/04/2024 [id number] PROVIDER: Gilmer Cotton, PhD CPT Code: Time: 50 minutes Setting: Due to the federal emergency declaration and the need for ongoing mental health services, the following visit was completed virtually and informed consent obtained orally to reduce the risk of COVID-19 exposure. Oral consent to services related to virtual visits was obtained after information was sent via Hymite or read to patient if BrightNesthart not available. Parties Present: Patient Treatment Modality/Interventions: [...] / mo over a year so considering [facility] is doing a walk through today [...] directed once a month. blood sugar diagnostic (GridBridge VERIO TEST STRIPS) test strip Test blood [...] adjustable head and (more content not included)... [facility] 10-27-2024 History of Present illness Narrative [...] PATIENT PRESENTS WITH AN IMPLANTABLE OR ATTACHED ECONOMIC ANALYST: No RADIOLOGY DEPARTMENT: General X-ray: Exam(s) Completed: Lower Extremity X-Ray(s): Tibia Fibula, Left and Ankle, Left PERIPHERAL IV DATA: Not applicable SIGNED BY: RT Ari(Jessica) October 27, 2024 11:40 AM documented in this encounter [facility] 10-27-2024 Note HNO ID: [id number] Author: FELIX DAVID RT(R) Service: Radiology Author [...] PATIENT PRESENTS WITH AN IMPLANTABLE OR ATTACHED ECONOMIC ANALYST: No RADIOLOGY DEPARTMENT: General X-ray: Exam(s) Completed: Lower Extremity X-Ray(s): Tibia Fibula, Left and Ankle, Left PERIPHERAL IV DATA: Not applicable SIGNED BY: RT Ari(R) October 27, 2024 11:40 AM [facility] 10-27-2024 Note HNO ID: [id number] Author: STEVEN PELAEZ, ? Service: ? Author [...] (NORCO) 5-325 mg (more content not included)... [facility] 10-27-2024 History of Present illness Narrative [...] improve strength and stability. Attestation Recording using MyAGENT software for draft documentation of the visit was discussed with the patient/authorized senior customer service representative; all questions welcomed and answered. Patient/authorized senior customer service representative agreed to proceed Steven Pelaez DPM [...] and injured herself. She is currently at [facility]. Has a history of cerebral palsy with left sided decreased sensation, but states that when she stands or puts pressure on the foot she is still having pain. XRay of left ankle was done 09/18/24. ИРИНА 12/15/23 documented in this encounter [facility] 10-27-2024 Instructions Steven Pelaez - [...] the rehab center. documented in this encounter [facility] 10-27-2024 Note HNO ID: [id number] Author: DEL ISBELL RN Service: ? Author [...] and injured herself. She is currently at [facility]. Has a history of cerebral palsy with left sided decreased sensation, but states that when she stands or puts pressure on the foot she is still having pain. XRay of left ankle was done 09/18/24. ИРИНА 12/15/23 [facility] 10-19-2024 History of Present illness Narrative [...] directed once a month. blood sugar diagnostic (GridBridge VERIO TEST STRIPS) test strip Test blood [...] Status Change Penicillins Hives Dioxicillin Promethazine Intolerance Kkqwnzm-Aqp-Rzb Red* Myalgia PAST MEDICAL HISTORY PAST MEDICAL [...] which included preparing to see the patient, qlna-yy-gsuj patient care, completing clinical documentation, obtaining and/or [...] these instructions. Informed Consent Consent Obtained: Verbal [place] Protocol A moment to CARE was completed. [...] Mendel Sharma PA-C documented in this encounter [facility] 10-19-2024 Note HNO ID: [id number] Author: MENDEL SHARMA PA-C Service: ? Author Type: Physician Electric Trucker Type: Progress Notes Filed: 10/19/2024 10:43 Note [...] directed once a month. blood sugar diagnostic (Dobns AgencyTOUCH VERIO TEST STRIPS) test strip Test blood [...] Status Change Penicillins Hives Dioxicillin Promethazine Intolerance Wcovoza-Spl-Etz Red* Myalgia PAST MEDICAL HISTORY PAST MEDICAL HISTORY Diagnosis Date CAD (coronary artery disease) Carotid artery stenosis Cerebral palsy (HCC) Chronic depressive personality disorder Diarrhea Dyslipidemia Edema bilat Hirsutism Hypertension Hypothyroid Insomnia Migraines (more content not included)... [facility] 10-10-2024 Note HNO ID: [id number] Author: TRAVIS PATTERSON APRN.SUPERVISOR PHOTOENGRAVING Service: ? Author Type: Nurse Practitioner Type: Progress Notes Filed: 10/10/2024 16:06 Note Text: Connected Care Unit Progress Note Patient Name: Randolph Hunter Patient Facility: [facility] Admit Date 09/28/2024 Level of Care: Skilled [...] vital signs Monitor labs 9. Atherosclerosis of [place] coronary artery of [place] heart without angina pectoris - ICD9: 414.01, [...] Dept Phone 10/19/2024 9:30 AM MENDEL SHARMA [facility] [phone] 11/04/2024 11:00 AM GILMER COTTON [facility] [phone] 12/06/2024 11:00 AM GILMER COTTON [facility] [phone] 12/07/2024 3:40 PM RAVI MICHAEL [facility] [phone] HPI: (Per hospital discharge) Admission Information ADMIT [...] for weakness. Medication (more content not included)... [facility] 10-10-2024 History of Present illness Narrative Images from the original note were not included. Connected Care Unit Progress Note Patient Name: Randolph Hunter Patient Facility: [facility] Admit Date 09/28/2024 Level of Care: Skilled [...] vital signs Monitor labs 9. Atherosclerosis of [place] coronary artery of [place] heart without angina pectoris - ICD9: 414.01, [...] Dept Phone 10/19/2024 9:30 AM MENDEL SHARMA [facility] [phone] 11/04/2024 11:00 AM GILMER COTTON [facility] [phone] 12/06/2024 11:00 AM GILMER COTTON [facility] [phone] 12/07/2024 3:40 PM RAVI MICHAEL [facility] [phone] HPI: (Per hospital discharge) Admission Information ADMIT [...] GFR- 59 mL/min/1.73 m2 >60 L Final BQR-QBK-FTZZKLR 49 mL/min/1.73 m2 >60 L Final Stage [...] today,10/10/2024 This note was partially generated using [employer] voice recognition system, and there may be some incorrect words, spellings, and punctuation that were not noted in checking the note before saving. Electronically signed by Travis Patterson APRN.JOHN documented in this encounter [facility] 10-05-2024 Note HNO ID: [id number] Author: TRAVIS PATTERSON APRN.JOHN Service: ? Author Type: Nurse Practitioner Type: Progress Notes Filed: 10/05/2024 16:20 Note Text: Connected Care Unit Progress Note Patient Name: Randolph Hunter Patient Facility: [facility] Admit Date 09/28/2024 Level of Care: Skilled [...] vital signs Monitor labs 9. Atherosclerosis of [place] coronary artery of [place] heart without angina pectoris - ICD9: 414.01, [...] Dept Phone 10/19/2024 9:30 AM MENDEL SHARMA [place] [facility] [phone] 11/04/2024 11:00 AM GILMER COTTON [facility] [phone] HPI: (Per hospital discharge) Admission Information ADMIT [...] weakness. Medications: Medications (more content not included)... [facility] 10-05-2024 History of Present illness Narrative Images from the original note were not included. Connected Care Unit Progress Note Patient Name: Randolph Hunter Patient Facility: [facility] Admit Date 09/28/2024 Level of Care: Skilled [...] vital signs Monitor labs 9. Atherosclerosis of [place] coronary artery of [place] heart without angina pectoris - ICD9: 414.01, [...] Dept Phone 10/19/2024 9:30 AM MENDEL SHARMA [facility] [phone] 11/04/2024 11:00 AM GILMER COTTON [facility] [phone] HPI: (Per hospital discharge) Admission Information ADMIT [...] today,10/05/2024 This note was partially generated using [employer] voice recognition system, and there may be some incorrect words, spellings, and punctuation that were not noted in checking the note before saving. Electronically signed by Travis Patterson APRN.SUPERVISOR PHOTOENGRAVING documented in this encounter [facility] 09-30-2024 Note HNO ID: [id number] Author: TRAVIS PATTERSON APRN.CNP Service: ? Author Type: Nurse Practitioner Type: Progress Notes Filed: 09/30/2024 13:49 Note Text: Connected Care Unit Progress Note Patient Name: Randolph Hunter Patient Facility: [facility] Admit Date 09/28/2024 Level of Care: Skilled [...] vital signs Monitor labs 9. Atherosclerosis of [place] coronary artery of [place] heart without angina pectoris - ICD9: 414.01, [...] Dept Phone 10/04/2024 11:00 AM GILMER COTTON [facility] [phone] 10/19/2024 9:30 AM MENDEL SHARMA [facility] [phone] 11/04/2024 11:00 AM GILMER COTTON [facility] [phone] HPI: (Per hospital discharge) Admission Information ADMIT [...] history (unchanged) Revi (more content not included)... [facility] 09-30-2024 History of Present illness Narrative Images from the original note were not included. Connected Care Unit Progress Note Patient Name: Randloph Hunter Patient Facility: [facility] Admit Date 09/28/2024 Level of Care: Skilled [...] vital signs Monitor labs 9. Atherosclerosis of [place] coronary artery of [place] heart without angina pectoris - ICD9: 414.01, [...] Dept Phone 10/04/2024 11:00 AM GILMER COTTON [facility] [phone] 10/19/2024 9:30 AM CHERYMENDEL RAMÍREZ [facility] [phone] 11/04/2024 11:00 AM GILMER COTTON Iveth [facility] [phone] HPI: (Per hospital discharge) Admission Information ADMIT [...] which included preparing to see the patient, gnum-bz-opgn patient care, completing clinical documentation, obtaining and/or reviewing separately obtained history, performing a medically appropriate examination, counseling and educating the patient/family/caregiver, ordering medications, tests, or procedures, communicating with other HCPs (not separately reported), independently interpreting results (not separately reported), communicating results to the patient/family/caregiver, and care coordination (not separately reported). It This note was partially generated using [employer] voice recognition system, and there may be some incorrect words, spellings, and punctuation that were not noted in checking the note before saving. Electronically signed by Travis Patterson APRN.SUPERVISOR PHOTOENGRAVING documented in this encounter [facility] 09-28-2024 Note HNO ID: [id number] Author: KATERIN RICH RN Service: Care Management Author Type: Registered Nurse Type: Care Mgt Progress Note Filed: 09/28/2024 15:06 Note Text: CARE MANAGEMENT DISCHARGE NOTE SERVICE DATE: September 28, 2024 SERVICE TIME: 3:04 PM Admission Date: 09/18/2024 LOS: 0 days Discharge Arrangement Discharge Arrangement: Senior Living Facility Was an expedited discharge program used?: No Services Arranged Provider Name: [facility] Caregiver Assessment Caregiver is ready, willing and able to meet the patient's needs as recommended by the inter-professional team: Yes Name of Caregiver: [facility] Transportation Arrangements Transportation Arrangements: Ambulance Transportation Agency and Phone #:: [facility] [phone] Date of Trip: 09/28/24 Time of Trip: 1630 Type of Service: BLS Non-emergency Is Patient Medicaid Pending?: No Was transportation financial coverage discussed with family?: Patient Drain Tiler Location: [place] Destination: [facility] Financial Care Management Responsibility: None Handoff Communication: Handoff to: Primary Care Physician Primary Care Physician Name/Phone: Raf Casey MD - [phone] Additional Information: Orders received for patient to discharge to SNF. [facility] is able to accept patient today. Precert approval received. Patient agreeable to discharge plan. Ambulance transport via [facility] at 1630. Envelope prepared. Bedside RN updated. SIGNATURE: Katerin Rich RN PATIENT NAME: Randolph Hunter DATE: September 28, 2024 TIME: 3:03 PM [facility] 09-28-2024 Note HNO ID: [id number] Author: KATERIN RICH RN Service: Care Management Author Type: Registered Nurse Type: Care Mgt Progress Note Filed: 09/28/2024 11:21 Note Text: CARE MANAGEMENT PROGRESS NOTE SERVICE DATE: 09/28/2024 SERVICE TIME: 10:07 AM LOS: 0 days Needs Prior to Discharge: To Be Determined EMR reviewed. CM called and left VM for Ping Ramsey from the [facility] ([phone]) in regards to determination of PASRR. Awaiting return call. CM will follow. 11:00 AM Left VM for [employer] in regards to determination of PASRR. Awaiting return call. Per [employer] website noted status is completed. CM will follow. 11:21 AM SNF reviewed results in [employer] website and are able to accept patient today. CM will follow. SIGNATURE: Katerin Rich RN PATIENT NAME: Randolph Hunter DATE: September 28, 2024 TIME: 10:07 AM [facility] 09-27-2024 Note HNO ID: [id number] Author: SAGE LOERA MD Service: Hospital Medicine Author Type: Physician Type: Progress Notes Filed: 09/27/2024 18:30 Note Text: DEPARTMENT OF HOSPITAL MEDICINE PROGRESS NOTE SERVICE DATE: 09/27/2024 SERVICE TIME: 5:44 PM Hospital Medicine/Primary Attending: Sage Loera MD NIGHT AND WEEKEND COVERAGE: [employer]: Nights: [phone], please page [facility] Hospital[facility] Night coverage pager [phone]. Probable discharge: Disposition: [facility] Consultants: PROCEDURES: NONE CODE STATUS: Full [...] (cerebral palsy) (HCC) (POA: Yes) --Presented to [place] ED for evaluation of left knee pain [...] lupus erythematosus) (HCC) (POA: Yes) --Plaquenil as TIRE RECAPPER Type 2 diabetes, controlled, with neuropathy (HCC) [...] Date Noted: 09/19/2024 SLE (systemic lupus erythematosus) ([facility]) Date Noted: 08/02/2010 Knee pain Date Noted: 05/04/2023 CKD (chronic kidney disease) Date Noted: 05/04/2023 Depression, recurrent Date Noted: 10/17/2009 CP (cerebral palsy) ([facility]) Date Noted: 03/29/2007 Hypomagnesemia Date Noted: 09/25/2024 [...] the ED fo (more content not included)... [facility] 09-27-2024 Note HNO ID: [id number] Author: SHERYL HUITRON RN Service: Care Management Author Type: Registered Nurse Type: Care Mgt Progress Note Filed: 09/27/2024 14:00 Note Text: CARE MANAGEMENT PROGRESS NOTE SERVICE DATE: 09/27/2024 SERVICE TIME: 1:50 PM LOS: 0 days [place] checked and no determination noted on PASRR at this time. NAWAF LOPEZ called Ping Ramsey from the [facility] Board of . She confirms she completed bedside visit yesterday she checked and states she has not received any updates at this time. NAWAF LOPEZ provided direct contact and [employer] for her call with update. [facility] confirmed that insurance authorization/precert was obtained and valid until 09/29/24. SNF: [facility] updated in [facility] Transitions. Discharge Transportation: Medical Transport envelope on Chart. RN JESSICA updated patient. CM dept to follow. SIGNATURE: Sheryl Huitron RN PATIENT NAME: Randolph Hunter DATE: September 27, 2024 TIME: 1:50 PM [facility] 09-26-2024 Note HNO ID: [id number] Author: SAGE LOERA MD Service: Hospital Medicine Author Type: Physician Type: Progress Notes Filed: 09/26/2024 14:40 Note Text: DEPARTMENT OF HOSPITAL MEDICINE PROGRESS NOTE SERVICE DATE: 09/26/2024 SERVICE TIME: 1:37 PM Hospital Medicine/Primary Attending: Sage Loera MD NIGHT AND WEEKEND COVERAGE: [employer] COVER[employer]: Nights: [phone], please page [facility] Night coverage pager [phone]. Probable discharge: Disposition: [facility] Consultants: PROCEDURES: NONE CODE STATUS: Full [...] (cerebral palsy) (HCC) (POA: Yes) --Presented to [place] ED for evaluation of left knee pain [...] lupus erythematosus) (HCC) (POA: Yes) --Plaquenil as TIRE RECAPPER Type 2 diabetes, controlled, with neuropathy (HCC) [...] urinary symptoms, skin (more content not included)... [facility] 09-26-2024 Note HNO ID: [id number] Author: SHERYL HUITRON RN Service: Care Management Author Type: Registered Nurse Type: Care Mgt Progress Note Filed: 09/26/2024 15:07 Note Text: CARE MANAGEMENT PROGRESS NOTE SERVICE DATE: 09/26/2024 SERVICE TIME: 9:41 AM LOS: 0 days 09/18/24 Admission Hospital Consults: PT. OT. O2: room air Diet: regular + supplements 09/22/24 PT recommended: SNF 09/22/24 OT recommended: SNF Discharge Plan: Senior Living Facility SNF: [facility] - Able to Accept Precert was obtained and valid 09/23-09/25. Needs Precert for SNF. PT AND OT messaged to request updated evaluations today. [facility] updated via secure message to Puja OLIVAREZ [facility]/ME site checked - No updates on determination. NAWAF LOPEZ called and left voice message for Ping Ramsey [phone] [facility] Board [facility]. Service and Support [...] NAWAF LOPEZ called Ping Ramsey from the [facility]. She informs CM that they can not see the review in there system. 09/26/24 1:00 PM NAWAF LOPEZ called and spoke with Ravi Nerissa [phone] from the [facility] He informs [...] follow. 09/26/24 2:08 PM Ping Ramsey from [facility] called CM to update her that she will be completing bedside visit today between 300PM and 400PM. [facility] tasked to start insurance authorization/precert. CM Dept to follow. SIGNATURE: Sheryl Huitron RN PATIENT NAME: Randolph Hunter DATE: September 26, 2024 TIME: 9:41 AM [facility] 09-25-2024 Note HNO ID: [id number] Author: SAGE LOERA MD Service: Hospital Medicine Author Type: Physician Type: Progress Notes Filed: 09/25/2024 16:17 Note Text: DEPARTMENT OF HOSPITAL MEDICINE PROGRESS NOTE SERVICE DATE: 09/25/2024 SERVICE TIME: 12:48 PM Hospital Medicine/Primary Attending: Sage Loera MD NIGHT AND WEEKEND COVERAGE: [employer]: Nights: [phone], please page [facility] Hospitalist Night coverage pager [phone]. Probable discharge: Disposition: [facility] Consultants: PROCEDURES: NONE CODE STATUS: Full [...] (cerebral palsy) (HCC) (POA: Yes) --Presented to [place] ED for evaluation of left knee pain [...] lupus erythematosus) (HCC) (POA: Yes) --Plaquenil as TIRE RECAPPER Type 2 diabetes, controlled, with neuropathy (HCC) [...] chest pain, palpitati (more content not included)... [facility] 09-24-2024 Note HNO ID: [id number] Author: SAGE LOERA MD Service: Hospital Medicine Author Type: Physician Type: Progress Notes Filed: 09/25/2024 12:46 Note Text: DEPARTMENT OF HOSPITAL MEDICINE PROGRESS NOTE SERVICE DATE: 09/25/2024 SERVICE TIME: 12:10 PM Hospital Medicine/Primary Attending: Sage Loera MD NIGHT AND WEEKEND COVERAGE: [employer]: Nights: [phone], please page [place] Hospitalist Night coverage pager [phone]. Probable discharge: Disposition: [facility] Consultants: PROCEDURES: NONE CODE STATUS: Full [...] (cerebral palsy) (HCC) (POA: Yes) --Presented to [place] ED for evaluation of left knee pain [...] lupus erythematosus) (HCC) (POA: Yes) --Plaquenil as TIRE RECAPPER Type 2 diabetes, controlled, with neuropathy (HCC) [...] changes, peripheral edema, paresthesia or focal weaknesses. [place] ED Course: HDS, afebrile. Labs unremarkable. Imaging including XR L KNEE/HIP/ANKLE negative for fracture. CT L KNEE negative for fracture, small joint effusion noted. The patient was admitted under (more content not included)... [facility] 09-23-2024 Note HNO ID: [id number] Author: CONCEPCION KEEN MD Service: Hospital Medicine Author Type: Physician Type: Progress Notes Filed: 09/23/2024 17:37 Note Text: DEPARTMENT OF HOSPITAL MEDICINE PROGRESS NOTE SERVICE DATE: 09/23/2024 SERVICE TIME: 5:34 PM Hospital Medicine/Primary Attending: Concepcion Keen,* NIGHT AND WEEKEND COVERAGE: [employer] COVER[employer]: Days: [phone], please page attending physician. Nights: [phone], please page [place] Hospitalist Night coverage pager [phone]. Subjective INTERVAL HPI: Seen and examined on [...] Drain Duration External Collection Device 09/18/24 2332 [facility] 4 days Reviewed lines and [...] (cerebral palsy) (HCC) (POA: Yes) --Presented to [place] ED for evaluation of left knee pain after a fall at home, non-ambulatory at baseline secondary to CP but concerns for current facility ability to meet her needs --XR L KNEE/HIP/ANKLE negative for acute osseous injury -- (more content not included)... [facility] 09-23-2024 Note HNO ID: [id number] Author: SHERYL HUITRON, RN Service: Care Management Author Type: Registered Nurse Type: Care Mgt Progress Note Filed: 09/23/2024 16:53 Note Text: CARE MANAGEMENT PROGRESS NOTE SERVICE DATE: 09/23/2024 SERVICE TIME: 8:09 AM LOS: 0 days Discharge Plan: Senior Living Facility SNF: [facility] - : Able to Accept. [facility] tasked to start insurance precert for SNF. [place] PAS[place] completed. Level II Review Required. Determination: Pending. Discharge Transportation: Medical Transport - COT Transport Envelope on Chart SNF [facility] Updated in [facility] Transitions. Needs Prior to Discharge: To Be Determined, Insurance Authorization, Precertification, Discharge Transportation (PASRR Level II Determination) CM Dept to Follow. 09/23/24 11:46 AM [facility] confirms Precert Obtained: Patient has been APPROVED to admit to [facility] in the [facility] Portal starting 09/23-09/25 NRD 09/25 Auth ID [id number]. [place] PAS[place] Level II Review Determination is Still Pending. SNF: [facility] - [facility]. They can not accept until they receive the PASRR determination. CM dept to Follow. 09/23/24 4:52 PM RN CM checked [place] PAS[place] Document ID : [id number] - Still Pending Level II Determination. CM Dept to follow. SIGNATURE: Sheryl Huitron RN PATIENT NAME: Randolph Hunter DATE: September 23, 2024 TIME: 8:08 AM [facility] 09-22-2024 Note HNO ID: [id number] Author: CONCEPCION KEEN MD Service: Hospital Medicine Author Type: Physician Type: Progress Notes Filed: 09/22/2024 12:13 Note Text: DEPARTMENT OF HOSPITAL MEDICINE PROGRESS NOTE SERVICE DATE: 09/22/2024 SERVICE TIME: 12:12 PM Hospital Medicine/Primary Attending: Concepcion Keen,* NIGHT AND WEEKEND COVERAGE: [employer]: Days: [phone], please page attending physician. Nights: [phone], please page [place] [facility] Night coverage pager [phone]. Subjective INTERVAL HPI: Seen and examined on [...] Drain Duration External Collection Device 09/18/24 2332 [facility] 3 days Reviewed lines and [...] (cerebral palsy) (HCC) (POA: Yes) --Presented to [place] ED for evaluation of left knee pain after a fall at home, non-ambulatory at baseline secondary to CP but concerns for current facility ability to meet her needs --XR L KNEE/HIP/ANKLE negative for acute osseous injury --CT L KNEE negative for fracture, small joint eff (more content not included)... [facility] 09-22-2024 Note HNO ID: [id number] Author: CONCEPCION KEEN MD Service: Care Management [...] neuropathy (HCC) Acquired hypothyroidism CP (cerebral palsy) ([facility]) Depression, recurrent SLE (systemic lupus erythematosus) (HCC) Pulmonary embolism (HCC) Lupus anticoagulant disorder (HCC) CKD (chronic kidney disease) Knee pain Fall at home, initial encounter Obesity, Class II, BMI 35-39.9 Resolved Problems: * No resolved hospital problems. * Attending Physician: Concepcion Keen,* [facility] 09-22-2024 Note HNO ID: [id number] Author: SHERYL HUITRON RN Service: Care Management Author Type: Registered Nurse Type: Raven Mgt Progress Note Filed: 09/22/2024 15:17 Note Text: CARE MANAGEMENT PROGRESS NOTE SERVICE DATE: 09/22/2024 SERVICE TIME: 8:35 AM SNF Referrals: [facility] - Able to Accept [facility] - Able to Accept Patients SNF 1st choice is pending. NAWAF LOPEZ updated Referral and requested update on acceptance. PT AND OT messaged to request updates for Precert. Patient has been updated that [facility] is still pending. Discharge Transportation: To be Determined. Needs Prior to Discharge: Accepting Facility, OT/PT Evaluation, Insurance Authorization, Precertification, Discharge Transportation CM Dept to Follow. 09/22/24 3:10 PM [facility] - Able to Accept PASR Completed in [facility]/ME - Level II Review Required. NAWAF LOPEZ called the [facility] Board of [phone] Option 2 Service and Support Administration and spoke with Ping Ramsey at [phone]. She checked and informed CM that it has not been received from [facility] at this time. She reports she it [...] DATE: September 22, 2024 TIME: 8:35 AM [facility] 09-21-2024 Note HNO ID: [id number] Author: GIMLER COTTON, PhD Service: ? Author Type: Psychologist Type: Progress Notes Filed: 09/21/2024 17:07 Note Text: [facility] Progress Note Randolph Hunter 09/21/2024 [id number] PROVIDER: Gilmer Cotton, PhD CPT Code: Time: 30 minutes Setting: Due to the federal emergency declaration and the need for ongoing mental health services, the following visit was completed virtually and informed consent obtained orally to reduce the risk of COVID-19 exposure. Oral consent to services related to virtual visits was obtained after information was sent via Hymite or read to patient if BrightNesthart not available. Phone ... no access to [...] PRN Psychiatric Medication Issues: as noted DIAGNOSIS: [place] I: Depressive Disorder recurrent Morbidly Obese CP [place] II : Deferred [place] III : See medical history [place] IV: Health [place] V: GAF 60-51 Moderate symptoms or moderate difficulty in social, occupational or school functioning TREATMENT PROGRESS/ASSESSMENT: Fluctuating progress. TREATMENT PLAN/GOALS: Continue in therapy focusing on self-care, stress management, affect management, anxiety management, and self-esteem. Next appointment: as scheduled Gilmer Cotton, [facility] 09-21-2024 Note HNO ID: [id number] Author: CONCEPCION KEEN MD Service: Hospital Medicine Author Type: Physician Type: Progress Notes Filed: 09/21/2024 16:30 Note Text: DEPARTMENT OF HOSPITAL MEDICINE PROGRESS NOTE SERVICE DATE: 09/21/2024 SERVICE TIME: 4:28 PM Hospital Medicine/Primary Attending: Concepcion Keen,* NIGHT AND WEEKEND COVERAGE: [employer]: Days: [phone], please page attending physician. Nights: [phone], please page [place] [facility] Night coverage pager [phone]. Subjective INTERVAL HPI: Seen and examined on [...] Drain Duration External Collection Device 09/18/24 2332 [facility] 2 days Reviewed lines and [...] (cerebral palsy) (HCC) (POA: Yes) --Presented to [place] ED for evaluation of left knee pain after a fall at home, non-ambulatory at baseline secondary to CP but concerns for current facility ability to meet her needs --XR L KNEE/HIP/ANKLE negative for acute osseous injury --CT L KNEE negative for fracture, small joint effusion noted --Palma (more content not included)... [facility] 09-21-2024 Note HNO ID: [id number] Author: SHERYL HUITRON, NAWAF Service: Care Management Author Type: Registered Nurse Type: Care Mgt Progress Note Filed: 09/21/2024 10:53 Note Text: CARE MANAGEMENT PROGRESS NOTE SERVICE DATE: 09/21/2024 SERVICE TIME: 9:19 AM LOS: 0 days Patient requesting a SNF Provider List for [place]: [id number]. [facility] SNF Provider List for [place] given to patient at bedside. Needs Prior to Discharge: To Be Determined, Facility or Agency Choices, Accepting Facility, Insurance Authorization, Precertification, Discharge Transportation CM Dept to Follow. 09/21/24 10:50 AM Patient provided SNF choices in order of preference: [facility] SNF Referrals sent in [facility]. Precert Needed for SNF. CM Dept to Follow. SIGNATURE: Sheryl Huitron RN PATIENT NAME: Randolph Hnuter DATE: September 21, 2024 TIME: 9:19 AM [facility] 09-21-2024 Note HNO ID: [id number] Author: SHERYL HUITRON RN Service: Care Management [...] discussed PT AND OT recommendations for SNF. [facility] SNF provider list given to patient. Patient informed she needs to provide 3 SNF choices in order of preference and she will require an insurance authorization/precert for SNF once she has an accepting SNF. Childs of Choice Given: Yes Level of Care Discussed: Senior Living Facility Financial Disclosure Provided: Yes Financial Disclosure Comments: [facility] SNF Provider Lists [id number] an [id number] given to patient at bedside to review and provide SNF choices. Provider List: Senior Living Facility Provider list within the patient's requested geographic area shared with the patient/family: Yes within: 15 miles of zip code: [address] (Patient also requesting a list for zip code [address].) Quality and resource use metrics shared with [...] DATE: September 21, 2024 TIME: 8:38 AM [facility] 09-20-2024 Note HNO ID: [id number] Author: CONCEPCION KEEN MD Service: Hospital Medicine Author Type: Physician Type: Progress Notes Filed: 09/20/2024 16:05 Note Text: DEPARTMENT OF HOSPITAL MEDICINE PROGRESS NOTE SERVICE DATE: 09/20/2024 SERVICE TIME: 4:04 PM Hospital Medicine/Primary Attending: Concepcion Keen,* NIGHT AND WEEKEND COVERAGE: [employer]: Days: [phone], please page attending physician. Nights: [phone], please page [place] [facility] Night coverage pager [phone]. Subjective INTERVAL HPI: Seen and examined on [...] Drain Duration External Collection Device 09/18/24 2332 [facility] 1 day Reviewed lines and [...] (cerebral palsy) (HCC) (POA: Yes) --Presented to [place] ED for evaluation of left knee pain after a fall at home, non-ambulatory at baseline secondary to CP but concerns for current facility ability to meet her needs --XR L KNEE/HIP/ANKLE negative for acute osseous injury --CT L KNEE negative for fracture, small joint effusion noted --Pain control as needed. On Lidoderm patch, Tylenol. Added oxycodone (more content not included)... [facility] 09-19-2024 Note HNO ID: [id number] Author: CONCEPCION KEEN MD Service: Hospital Medicine Author Type: Physician Type: Progress Notes Filed: 09/19/2024 14:41 Note Text: DEPARTMENT OF HOSPITAL MEDICINE PROGRESS NOTE SERVICE DATE: 09/19/2024 SERVICE TIME: 2:33 PM Hospital Medicine/Primary Attending: Concepcion Keen,* NIGHT AND WEEKEND COVERAGE: [employer]: Days: [phone], please page attending physician. Nights: [phone], please page [place] [facility] Night coverage pager [phone]. Subjective INTERVAL HPI: Seen and examined on [...] Drain Duration External Collection Device 09/18/24 2332 [facility] <1 day Reviewed lines and [...] (cerebral palsy) (HCC) (POA: Yes) --Presented to [place] ED for evaluation of left knee pain [...] --CM consulted for (more content not included)... [facility] 09-19-2024 Note HNO ID: [id number] Author: JADE SPARROW RN Service: Care Management Author Type: Registered Nurse Type: Care Mgt Initial Assessment Filed: 09/19/2024 10:28 Note Text: CARE MANAGEMENT: ASSESSMENT AND DISCHARGE PLAN SERVICE DATE: September 19, 2024 SERVICE TIME: 10:26 AM PCP: Raf Casey MD, MD Primary Contact: Extended Emergency Contact Information Primary Emergency Contact: Harper Hunter (HCPOA) Mobile Relation: Son Admission Status: Observation Insurance Provider: [facility] DUAL COMPLETE HMO POS SNP Discharge Planning requested by: Per Department Practice Potential Transition Plans To Be Determined Advance Directives Current Advance Directive: Health Care Power of Senior Restaurant Manager, Living Will In Chart: Yes Up To Date and Valid: Yes Current Living Arrangements and Support Lives with: Spouse/significant other Type of Residence: Assisted Living Facility Does the patient have to climb stairs at home?: No Care Facility Name: [facility] Support: Children, Spouse/significant other How do you manage to accomplish the following: Independent: Medication Management Needs Assistance: Bathe/Shower, Dress, Going to the bathroom Dependent: Ambulation, Meals/Meal Prep, Transportation to appointments/community Current Services/Equipment Current Post-Acute Service(s): DME Current DME Type: Wheelchair-manual, Other: See Comment, Bedside commode (Lift Chair) Discharge Planning Patient Goal(s): Increase strength Childs of Choice Explained: Childs of Choice Given: No Reason Not Given: Unable to complete with this assessment - revisit Are you interested in bedside delivery of your medications? No Discharge Planning Participant(s): Patient Patient/Family Comments: Caregiver Assessment: Caregiver is ready, willing and able to meet the patient's needs as recommended by the inter-professional team: Other: See Comment (From [facility]) Transport at Discharge: Transportation Arrangements: Ambulance Needs Prior to Discharge: Needs Prior to Discharge: OT/PT Evaluation Post-Acute Discharge Plan: Review of the chart and met with the patient. The patient states she lives with her at [facility] in [place]. States pivots from her lift chair to her wheelchair and able to pivot from her wheelchair to her BSC. The patient states the [facility] provides her meals and laundry services, the patient takes care of her own medications. PT evals- Pending. CM department will continue to follow for DC needs. SIGNATURE: Jade Sparrow RN PATIENT NAME: Randolph Hunter DATE: September 19, 2024 TIME: 10:26 AM [facility] 09-02-2024 Note HNO ID: [id number] Author: GILMER COTTON, PhD Service: ? Author Type: Psychologist Type: Progress Notes Filed: 09/02/2024 12:02 Note Text: [facility] Progress Note Randolph Hunter 09/02/2024 [id number] PROVIDER: Gilmer Cotton, PhD CPT Code: Time: 50 minutes Setting: Due to the federal emergency declaration and the need for ongoing mental health services, the following visit was completed virtually and informed consent obtained orally to reduce the risk of COVID-19 exposure. Oral consent to services related to virtual visits was obtained after information was sent via Hymite or read to patient if BrightNesthart not available. Parties Present: Patient Treatment Modality/Interventions: [...] directed once a month. blood sugar diagnostic (GridBridge VERIO TEST STRIPS) test strip Test blood [...] daily. calcium car (more content not included)... [facility] 08-05-2024 Note HNO ID: [id number] Author: GILMER COTTON, PhD Service: ? Author Type: Psychologist Type: Progress Notes Filed: 08/05/2024 12:29 Note Text: [facility] Progress Note Randolph Hunter 08/05/2024 [id number] PROVIDER: Gilmer Cotton, PhD CPT Code: Time: [...] directed once a month. blood sugar diagnostic (Proclivity SystemsUCH VERIO TEST STRIPS) test strip Test blood [...] Psychiatric Medication Issues: see med record DIAGNOSIS: [place] I: Depressive Disorder recurrent Morbidly Obese CP [place] II : Deferred [place] III : See medical history [place] IV: Health [place] V: GAF 60-51 Moderate symptoms or moderate difficulty in social, o (more content not included)... [facility] 07-10-2024 Emergency department Note Pt resting quietly in bed with blanket over face. Respirations even and non labored. No coughing noted at this time. Await transport by Vasquez Cantor. [facility] 07-10-2024 Emergency department Note Pt resting [...] TABLET Place under the tongue. NYSTATIN (MYCOSTATIN) 198714 UNIT/GM POWDER Apply topically 2 times daily. [...] Resource Strain: Low Risk (01/02/2020) Received from [facility] Overall Financial Resource Strain (CARDIA) Difficulty of Paying Living Expenses: Not very hard Food Insecurity: Food Insecurity Present (01/02/2020) Received from [facility] Hunger Vital Sign Worried About Running Out of Food in the Last Year: Sometimes true Ran Out of Food in the Last Year: Never true Transportation Needs: Unmet Transportation Needs (01/02/2020) Received from [facility] PRAPARE - Transportation Lack of Transportation (Medical): Yes Lack of Transportation (Non-Medical): Yes Physical Activity: Inactive (01/02/2020) Received from [facility] Exercise Vital Sign Days of Exercise per Week: 0 days Minutes of Exercise per Session: 0 min Stress: Stress Concern Present (01/02/2020) Received from [facility] [place] [facility] Occupational [facility] - Occupational Stress Questionnaire Feeling of Stress : Rather much Social Connections: Moderately Isolated (01/02/2020) Received from [facility] Social Connection and Isolation Panel [NHANES] Frequency of Communication with Friends and Family: More than three times a week Frequency of Social Gatherings with Friends and Family: Never Attends Rastafarian Services: Never Active Member of Clubs or [...] chest x-ray. I reviewed external [facility] demonstrating [facility] prescriptions, to include gabapentin and Lazbuddie Chest x-ray negative for consolidation upon my [...] Discharge 07/10/2024 12:55:44 AM PATIENT REFERRED TO: [facility] [place] [address] Schedule an appointment as soon as possible [...] Jha MD 07/10/24202 documented in this encounter [facility] 07-10-2024 Hospital Discharge instructions Александр Jha MD - 07/10/2024 12:56 AM EST If the Tessalon Perles do not work, you may purchase cough syrup [id number]. Please return to the emergency department if your symptoms change or worsen. The following attachments cannot be sent through Care Everywhere.Cough in Adults (Kosovan)documented in this encounter [facility] 07-10-[address] Jha at bedside. [facility] 07-09-[address] Jha to bedside. Pt given water. [facility] 07-09-2024 Physician Emergency department Note EMERGENCY [...] TABLET Place under the tongue. NYSTATIN (MYCOSTATIN) [id number] UNIT/GM POWDER Apply topically 2 times daily. [...] Resource Strain: Low Risk (01/02/2020) Received from [facility] Overall Financial Resource Strain (CARDIA) Difficulty of Paying Living Expenses: Not very hard Food Insecurity: Food Insecurity Present (01/02/2020) Received from [facility] Hunger Vital Sign Worried About Running Out of Food in the Last Year: Sometimes true Ran Out of Food in the Last Year: Never true Transportation Needs: Unmet Transportation Needs (01/02/2020) Received from [facility] PRAPARE - Transportation Lack of Transportation (Medical): Yes Lack of Transportation (Non-Medical): Yes Physical Activity: Inactive (01/02/2020) Received from [facility] Exercise Vital Sign Days of Exercise per Week: 0 days Minutes of Exercise per Session: 0 min Stress: Stress Concern Present (01/02/2020) Received from [facility] [place] [facility] [employer]ational Health - Occupational Stress Questionnaire Feeling of Stress : Rather much Social Connections: Moderately Isolated (01/02/2020) Received from [facility] Social Connection and Isolation Panel [NHANES] Frequency of Communication with Friends and Family: More than three times a week Frequency of Social Gatherings with Friends and Family: Never Attends Rastafarian Services: Never Active Member of Clubs or [...] demonstrating 62 prescriptions, to include gabapentin and Lazbuddie Chest x-ray negative for consolidation upon my [...] Discharge 07/10/2024 12:55:44 AM PATIENT REFERRED TO: [facility] Address: [address] , [place] [address] Schedule an appointment as soon as possible [...] Emergency Medicine Provider Александр Jha MD 07/10/24202 [facility] 06-30-2024 Note HNO ID: [id number] Author: GILMER COTTON, PhD Service: ? Author Type: Psychologist Type: Progress Notes Filed: 06/30/2024 11:53 Note Text: [facility] Progress Note Randolph Hunter 06/30/2024 [id number] PROVIDER: Gilmer Cotton, PhD CPT Code: Time: 50 minutes Setting: Due to the federal emergency declaration and the need for ongoing mental health services, the following visit was completed virtually and informed consent obtained orally to reduce the risk of COVID-19 exposure. Oral consent to services related to virtual visits was obtained after information was sent via Hymite or read to patient if BrightNesthart not available. Parties Present: Patient Treatment Modality/Interventions: [...] be a leader to work w the [employer] and can work w the [employer] That may likely help her mood in [...] directed once a month. blood sugar diagnostic (GridBridge VERIO TEST STRIPS) test strip Test blood [...] test meter ([place] (more content not included)... [facility] 05-02-2024 Note HNO ID: [id number] Author: GILMER COTTON, PhD Service: ? Author Type: Psychologist Type: Progress Notes Filed: 05/02/2024 12:11 Note Text: [facility] Progress Note Randolph Hunter 05/02/2024 [id number] PROVIDER: Gilmer Cotton, PhD CPT Code: Time: [...] directed once a month. blood sugar diagnostic (Proclivity SystemsUCH VERIO TEST STRIPS) test strip Test blood [...] Issues: No change from previous appointment DIAGNOSIS: [place] I: Depressive Disorder recurrent Morbidly Obese CP [place] II : Deferred [place] III : See medical history [place] IV: Health [place] V: GAF 60-51 Moderate symptoms or moderate difficulty in social, occupational or school functioning TREATMENT PROGRESS/ASSESSMENT: Progressing satisfactorily. TREATMENT PLAN/GOALS: (more content not included)... [facility] 02-10-2024 History of Present illness Narrative [...] Test Results/Process Orders 10 [] Staff telephones [facility], Nursing Homes/Clarify Orders 10 [...] with plan . documented in this encounter [facility] 02-10-2024 Hospital Discharge instructions Maria Isabel Wilson RN - 02/10/2024 10:45 AM EDT Ordered treatment completed and patient is healed. Patient discharged without any issues. All questions answered. Call the clinic if your wound reopens or a new wound appears at [phone]. Edema/Swelling: Avoid standing for long periouds of [...] promote wound healing documented in this encounter [facility] 01-27-2024 History of Present illness Narrative Associated Order(s): Debridement Post-Procedure Diagnose(s): Pressure ulcer of right foot, stage 3 (HCC) Images from the original note were not included. [facility] Wound Care Progress Note CHIEF [...] provider verified the correct patient, procedure, equipment, web support engineer, and site/side marked as required. Debridement Details [...] Pressure ulcer of right foot, stage 3 ([facility]) PLAN: Patient examined and evaluated. Pt ed, [...] attached Discharge Instructions documented in this encounter [facility] 01-27-2024 Hospital Discharge instructions Maria Isabel Wilson RN - 01/27/2024 1:15 PM EDT Follow-up Appointments: Return Appointment in 1 week. Call [place] wound center at [phone], [facility] at [phone], or [facility] center at [phone]. Edema/Swelling: Avoid standing for long periouds of [...] secure with tape. documented in this encounter [facility] 01-27-2024 Note [facility] Wound Care Progress Note CHIEF [...] provider verified the correct patient, procedure, equipment, web support engineer, and site/side marked as required. Debridement Details [...] Paper tape Please see attached Discharge Instructions [facility] 01-20-2024 History of Present illness Narrative Associated Order(s): Debridement Post-Procedure Diagnose(s): Pressure ulcer of right foot, stage 3 (HCC) Images from the original note were not included. [facility] WND OSTOM[facility] [address] [place] [address] Loc: [phone] Wound Care Visit - New Patient Progress [...] ti,es a day, Disp: , Rfl: HYDROcodone-acetaminophen (Lazbuddie) 5-325 MG tablet, Take 1 tablet by [...] the tongue., Disp: , Rfl: nystatin (Mycostatin) 316973 UNIT/GM powder, Apply topically 2 times daily., [...] provider verified the correct patient, procedure, equipment, web support engineer, and site/side marked as required. Debridement Details [...] (Active) Wound Image 01/20/24 1448 Site Assessment [facility] 01/20/24 1448 Andra-Wound Assessment [place] 01/20/24 1448 [...] Test Results/Process Orders 10 [x] Staff telephones [facility], Nursing Homes/Clarify Orders 10 [...] or more Points) documented in this encounter [facility] 01-20-2024 Hospital Discharge instructions Maria Isabel Wilson RN - 01/20/2024 2:45 PM EDT Follow-up Appointments: Return Appointment in 1 week. Call [place] wound center at [phone], [facility] at [phone], or [facility] Wound center at [phone]. Edema/Swelling: Avoid standing for long periouds of [...] secure with tape. documented in this encounter [facility] 01-20-2024 Note Encounter addended b y: Tania Osei RN on: 01/21/2024 10:33 AM Actions taken: Care Teams modified, LDA properties accepted, Charge Capture section accepted [facility] 12-16-2023 Emergency department Note Patient wheeled out ED for transport to residence. discharge instructions sent to facility with patient. No further questions. Respirations even and non labored. No acute distress. A&O x4. Gifty Cornell RN 12/16/23 0015 [facility] 12-16-2023 Emergency department Note Patient [...] Resource Strain: Low Risk (01/02/2020) Received from [facility] Overall Financial Resource Strain (CARDIA) Difficulty of Paying Living Expenses: Not very hard Food Insecurity: Food Insecurity Present (01/02/2020) Received from [facility] Hunger Vital Sign Worried About Running Out of Food in the Last Year: Sometimes true Ran Out of Food in the Last Year: Never true Transportation Needs: Unmet Transportation Needs (01/02/2020) Received from [facility] PRAPARE - Transportation Lack of Transportation (Medical): Yes Lack of Transportation (Non-Medical): Yes Physical Activity: Inactive (01/02/2020) Received from [facility] Exercise Vital Sign Days of Exercise per Week: 0 days Minutes of Exercise per Session: 0 min Stress: Stress Concern Present (01/02/2020) Received from [facility] [place] [facility] - Occupational Stress Questionnaire Feeling of Stress : Rather much Social Connections: Moderately Isolated (01/02/2020) Received from [facility] Social Connection and Isolation Panel [NHANES] Frequency of Communication with Friends and Family: More than three times a week Frequency of Social Gatherings with Friends and Family: Never Attends Rastafarian Services: Never Active Member of Clubs or [...] about putting in her observation unit at [facility] for 24 hours of IV antibiotics [...] MD 12/15/231935 Patient to room 7 via [facility] for c/o a left foot ulcer, lower leg erythema, and a headache. Patient reports she has had her foot ulcer for a couple of months. V/S obtained, call light within reach. documented in this encounter [facility] 12-15-2023 Hospital Discharge instructions Karen [...] Care Everywhere.Cellulitis (Skin Infection) Discharge Instructions, Adult (Kosovan)documented in this encounter [facility] 12-15-2023 Emergency department Triage note Patient to room 7 via [facility] for c/o a left foot ulcer, lower leg erythema, and a headache. Patient reports she has had her foot ulcer for a couple of months. V/S obtained, call light within reach. [facility] 12-15-2023 Physician Emergency department Note [...] Resource Strain: Low Risk (01/02/2020) Received from [facility] Overall Financial Resource Strain (CARDIA) Difficulty of Paying Living Expenses: Not very hard Food Insecurity: Food Insecurity Present (01/02/2020) Received from [facility] Hunger Vital Sign Worried About Running Out of Food in the Last Year: Sometimes true Ran Out of Food in the Last Year: Never true Transportation Needs: Unmet Transportation Needs (01/02/2020) Received from [facility] PRAPARE - Transportation Lack of Transportation (Medical): Yes Lack of Transportation (Non-Medical): Yes Physical Activity: Inactive (01/02/2020) Received from [facility] Exercise Vital Sign Days of Exercise per Week: 0 days Minutes of Exercise per Session: 0 min Stress: Stress Concern Present (01/02/2020) Received from [facility] [place] [facility] - Occupational Stress Questionnaire Feeling of Stress : Rather much Social Connections: Moderately Isolated (01/02/2020) Received from [facility] Social Connection and Isolation Panel [NHANES] Frequency of Communication with Friends and Family: More than three times a week Frequency of Social Gatherings with Friends and Family: Never Attends Rastafarian Services: Never Active Member of Clubs or [...] Emergency Medicine Provider Gloria Bangura DO 12/15/231848 [facility] 12-15-2023 Physician Emergency department Note [...] about putting in her observation unit at [facility] for 24 hours of IV antibiotics versus discharging home with oral antibiotics. After shared decision-making she elected to go home. I do think that this is a safe plan. She lives in assisted living and they can help her with continuing to monitor her wound. Gave her strict return precautions and discharged in stable condition. Karen Gallardo MD 12/15/231935 [facility] 07-20-2023 Emergency department Note Physician's arrived; pt removed from urine collection device and pts own attends placed on pt per her request. Pts belongings in bag at bedside. Report to Physician's. Veronika Bae RN 07/20/23 0844 [facility] 07-20-2023 Emergency department Note Physician's arrived; pt [...] still in radiology. Pia Caraballo RN 07/19/23 0923 Dispo per imaging :) Chasidy Fernandez RN 07/19/232253 Pt placed up for discharge. No discharge paperwork complete at this time. Once orders are complete and discharge paperwork complete by ER Pt will be discharged. Chasidy Fernandez RN 07/19/23 398 This RN requested orders from ER DR. [...] the left knee Report Dictated on Workstation: [employer] Electronically Signed By: Phan Sepulveda MD Electronically Signed Date/Time: 07/19/2023 11:53 PM EST XR knee 3 views left Final Result 1. Right knee arthroplasty in adequate alignment 2. Unremarkable right hip 3. Osteoarthritis of the left knee Report Dictated on Workstation: [employer] Electronically Signed By: Phan Sepulveda MD Electronically Signed Date/Time: 07/19/2023 11:53 PM EST XR knee 3 views right Final Result 1. Right knee arthroplasty in adequate alignment 2. Unremarkable right hip 3. Osteoarthritis of the left knee Report Dictated on Workstation: [employer] Electronically Signed By: Phan Sepulveda MD Electronically [...] Height: 1.575 m (5' 2) Medications HYDROcodone-acetaminophen (Lazbuddie) 5-325 MG per tablet 1 tablet (has no administration in time range) HYDROcodone-acetaminophen (Lazbuddie) 5-325 MG per tablet 1 tablet (1 [...] fractures. Patient is on Coumadin and fails [place] CT head rules and CT C-spine rules by virtue of age, needs CT head and CT cervical spine as well. Pain controlled with Lazbuddie. No lab work required, this was mechanical [...] I also reviewed external records [facility] to obtain collateral history. The patient [...] or PT nearby. She is already on Lazbuddie at home for pain so no additional [...] Mendez who is her osteoarthritis specialist in [place]; this is very good follow-up. The patient [...] when she fell. She resides at [address] She currently is working with a physical therapist and is in a wheelchair. Patient hooked up to [employer] due to incontinence. She also has right knee bruising that is from her repeatedly hitting it on her wheelchair. She denies hitting her head or neck during fall. She is on coumadin. Call light within reach. documented in this encounter [facility] 07-20-2023 Emergency department Note [facility] with an amb[facility]lette/wheelchair van. Chasidy RN spoke with Physician[facility] to inform them that the pt is non ambulatory and needed a stretcher. Physician's states they will have a stretcher here within the hour. Veronika Bae RN 07/20/23 0717 [facility] 07-20-2023 Hospital Discharge instructions Cuba Anna MD [...] should [facility] to ensure that you are [...] attachments cannot be sent through Care Everywhere.Osteoarthritis (K[place]ovan)Preventing Falls in Older Adults (K[place]ovan)Hip Pain ED (Kosovan)documented in this encounter [facility] 07-20-2023 Emergency department Note Patient pressed call light to request pain medication. States pain is in shoulders and down the back from laying on the tables. notified Gifty Cornell RN 07/20/23 0044 [facility] 07-19-2023 Emergency department Note Report given to Gifty MCCRACKEN & Chasidy RN. Patient still in radiology. Pia Caraballo RN 07/19/23 231 [facility] 07-19-2023 Emergency department Note Dispo per imaging :) Chasidy Fernandez RN 07/19/232253 [facility] 07-19-2023 Emergency department Note Pt placed up for discharge. No discharge paperwork complete at this time. Once orders are complete and discharge paperwork complete by ER DR Pt will be discharged. Chasidy Fernandez RN 07/19/232251 [facility] 07-19-2023 Emergency department Note This RN requested orders from ER DR. Chasidy Fernandez RN 07/19/232025 [facility] 07-19-2023 Emergency department Triage note Patient is here for right hip pain. She was transferring to the toilet when she fell. She resides at [address] She currently is working with a physical therapist and is in a wheelchair. Patient hooked up to [facility] due to incontinence. She also has right knee bruising that is from her repeatedly hitting it on her wheelchair. She denies hitting her head or neck during fall. She is on coumadin. Call light within reach. [facility] 07-19-2023 Physician Emergency department Note [...] Height: 1.575 m (5' 2) Medications HYDROcodone-acetaminophen (Lazbuddie) 5-325 MG per tablet 1 tablet (has no administration in time range) HYDROcodone-acetaminophen (Lazbuddie) 5-325 MG per tablet 1 tablet (1 [...] fractures. Patient is on Coumadin and fails [place] CT head rules and CT C-spine rules by virtue of age, needs CT head and CT cervical spine as well. Pain controlled with Lazbuddie. No lab work required, this was mechanical [...] I also reviewed external records [facility] to obtain collateral history. The patient [...] or PT nearby. She is already on Lazbuddie at home for pain so no additional [...] Mendez who is her osteoarthritis specialist in [place]; this is very good follow-up. The patient [...] Medicine Provider Cuba Anna MD 07/20/23 0110 [facility] 09-06-2022 Emergency department Note RN called back from Residence for report after patient left. This RN updated RN. No questions or concerns Lucy Jones RN 09/06/22 1115 [facility] 09-06-2022 Emergency department Note RN called back from Residence for report after patient left. This RN updated RN. No questions or concerns Lucy Jones RN 09/06/22 1115 This RN attempted report at [facility] for patient. RN's busy, entry level project coordinator took RN name and number to return call for report if wanted. Lucy Jones RN 09/06/22 1018 DM ETA 20-30 min ([id number]) Lucy Jones RN 09/06/22 0953 Patient resting [...] RN 09/06/22 022 Emergency Department Encounter Location: [facility] EMERGENCY DEPT Patient: Patsy Juan [...] 445 ms QTC Interval 457 ms P [place] 49 degrees QRS [place] -29 degrees T Wave [place] 11 degrees CO Interval 149 ms XR shoulder 2+ views [...] Result Upper pelvis is excluded from the xeegb-cr-ddmu. No fracture or dislocation of the imaged [...] are mis-transcribed.) OSMAN MCCORMACK MD Acute Care [facility] Osman Mccormack MD 09/06/221522 Emergency Department Encounter Location: [facility] EMERGENCY DEPT Patient: Patsy Juan [...] 445 ms QTC Interval 457 ms P [place] 49 degrees QRS [place] -29 degrees T Wave [place] 11 degrees CO Interval [address] head wo IV [...] Result Upper pelvis is excluded from the brdww-hd-umcm. No fracture or dislocation of the imaged [...] RN 09/06/22 0221 documented in this encounter [facility] 09-06-2022 Emergency department Note This RN attempted report at [facility] for patient. RN's busy, entry level project coordinator took RN name and number to return call for report if wanted. Lucy Jones RN 09/06/22 1018 [facility] 09-06-2022 Emergency department Note DM ETA 20-30 min ([id number]) Lucy Jones RN 09/06/22 0953 [facility] 09-06-2022 Hospital Discharge instructions Gloria [...] through Care Everywhere.Getting Up From a Fall (K[place]ovan)documented in this encounter [facility] 09-06-2022 Emergency department Note Patient resting with eyes closed. Respirations even and unlabored. RN called about work order for call light / panel. Will be there soon to fix. Lucy Jones RN 09/06/22 0944 [facility] 09-06-2022 History of Present illness Narrative Department of Trauma / Critical Care Tertiary Survey Date of Trauma: 09/06/2022 1:36 AM MARIANELA/HPI: 72 y.o. female status post fall from standing. The incident happened around 0120 on 09/06/22 at [facility]. When the event happened the [...] 09/06/2022 [facility] 1950 [id number] Exam Date/Time: 09/06/2022 02:47 Procedure: XR SHOULDER [...] Report Dictated on Electronically Signed By: Gloria Wheelergayleremy Electronically Signed Date/Time: 09/06/2022 8:39 AM EDT [...] note: Upper pelvis is excluded from the pqxnn-ki-nzwl. COMPARISON: None. FINDINGS: There is no evidence for fracture or dislocation. The hips joints are unremarkable. The imaged sacroiliac joints are normal. No bone lesion is identified. There is no soft tissue abnormality. Surgical clips project over the right groin. Upper pelvis is excluded from the hbvcm-cf-hhzp. No fracture or dislocation of the imaged [...] AT LLE: AT [facility] [place] APRN - ENTRY OPERATOR 09/06/22 9:09 AM documented in this encounter [facility] 09-06-2022 Emergency department Note Pt back in room Lucy Jones RN 09/06/22 0832 [facility] 09-06-2022 Emergency department Note Pt at CT Lucy Jones RN 09/06/22 0826 [facility] 09-06-2022 Emergency department Note Patient [...] this time Lucy Jones RN 09/06/22 0739 [facility] 09-06-2022 Note NOTE: This result is for medical treatment only. Analysis performed using non-forensic procedures. [facility] 09-06-2022 Emergency department Note Pt to x-ray in stable condition. Bárbara Hogan RN 09/06/22225 [facility] 09-06-2022 Emergency department Note Report of to bárbara Younger RN 09/06/22220 [facility] 09-06-2022 Emergency department Note Bed: 23 Expected date: Expected time: Means of arrival: Comments: SX TEAM Aaron Wallace RN 09/06/22220 [facility] 09-06-2022 Physician Emergency department Note Emergency Department Encounter Location: [facility] EMERGENCY DEPT Patient: Patsy Juan [...] 445 ms QTC Interval 457 ms P [place] 49 degrees QRS [place] -29 degrees T Wave [place] 11 degrees CO Interval 149 ms XR shoulder 2+ views [...] Result Upper pelvis is excluded from the lzawd-xi-fktm. No fracture or dislocation of the imaged [...] are mis-transcribed.) OSMAN MCCORMACK MD Acute Care [facility] Osman Mccormack MD 09/06/22 1523 [facility] Phone: 09-06-2022 Physician Emergency department Note Emergency Department Encounter Location: [facility] EMERGENCY DEPT Patient: Patsy Juan [...] 445 ms QTC Interval 457 ms P [place] 49 degrees QRS [place] -29 degrees T Wave [place] 11 degrees CO Interval [address] head wo IV [...] Result Upper pelvis is excluded from the ffaqr-yz-vptq. No fracture or dislocation of the imaged [...] [employer] Gloria Frost, Resident 09/06/22 1314 [facility] Phone: 04-25-2022 Miscellaneous Notes Left a detailed [...] Prior Authorization has been completed online at [employer] for Cycanocobalamin, will await response. WILLIS- [id number] Please keep encounter open until final decision has been received and documented from insurance company. Isabela Petit LPN documented in this encounter [facility] 03-12-2022 Note Hospitalist Discharg e [...] results reviewed, no signs of osteomyelitis. Appreciate drainlayer recommendations On the day of discharge patient's [...] MG extended re (more content not included)... [facility] 03-12-2022 Hospital course Narrative Images from [...] results reviewed, no signs of osteomyelitis. Appreciate drainlayer recommendations On the day of discharge patient's [...] Your Medications These medications were sent to [address] [phone] - [phone] [place] [id number] amoxicillin-clavulanate 875-125 MG per tablet doxycycline hyclate 100 MG capsule polyethylene glycol 17 g packet Recommended Follow-up: No follow-up provider specified. Readmission Risk Risk of Unplanned Readmission: 16 Complexity of Follow up: [] Moderate Complexity: follow up within 7-14 calendar days (63357) [x] Severe Complexity: follow up within 7 calendar days (75310) Follow up Testing, Pending results or Referrals [...] frame. Signed: Demetris Stone MD [facility] 03/12/2022, 2:01 PM Images from the original [...] results reviewed, no signs of osteomyelitis. Appreciate drainlayer recommendations On the day of discharge patient's [...] Your Medications These medications were sent to [facility] [address] [place] [address] [place] - P [phone] - F [phone] [place] [id number] amoxicillin-clavulanate 875-125 MG per tablet doxycycline hyclate 100 MG capsule polyethylene glycol 17 g packet Recommended Follow-up: No follow-up provider specified. Readmission Risk Risk of Unplanned Readmission: 15 Complexity of Follow up: [] Moderate Complexity: follow up within 7-14 calendar days (25641) [x] Severe Complexity: follow up within 7 calendar days (61308) Follow up Testing, Pending results or Referrals [...] MD Division of Hospitalist Medicine Inpatient Medical Services/[facility] 03/11/2022, 1:36 PM documented in this encounter [facility] Phone: 03-11-2022 History of Present illness Narrative [facility] called this nurse to change time of strip picker. Pt agreed to stay till morning. This nurse called [place] [phone] to inform about new strip picker time of 9:30 am. Report called to Nurse Copeland at [facility]. Occupational Therapy Facility/Department: [facility] Occupational Therapy Daily Treatment Note Name: Randolph Hunter : 1950 Date of Service: 03/11/2022 Pt's chart reviewed. Holding therapy today due to >5 INR. Will continue to follow and re-attempt once within therapeutic range. Dianne Schuster, OT Physical Therapy Facility/Department: [facility] Daily Treatment Note Name: Randolph Hunter : 1950 Date of Service: 03/11/2022 Pt's chart reviewed. Holding therapy today due to >5 INR. Will continue to follow and re-attempt once within therapeutic range. Jaida Matamoros TIRE RECAPPER Occupational Therapy Facility/Department: [facility] Occupational Therapy Initial Assessment Name: [...] erythematosus (HCC), and Type 2 diabetes mellitus ([facility]). Past Surgical History: has no past surgical [...] Social/Functional History Social/Functional History Lives With: Spouse ([place].) Type of Home: Assisted living Home Layout: [...] Assistance: Non-ambulatory Transfer Assistance: Needs assistance Active Is Technician: No Patient's Is Technician Info: daughter Mode of Transportation: Car Education: na Occupation: Retired Type of Occupation: worked at [employer] [place] Objective Heart Rate: 68 Heart Rate Source: [...] AROM: ~100 degrees shoulder flexion grossly observed [facility] Score [facility] Inpatient Daily Activity [...] note were not included. Hospitalist Progress Note 03/10/[id number]: Please page me ([phone]) for patient care issues. [phone]: Please page IMS night Hospitalist for any [...] results reviewed, no signs of osteomyelitis. Appreciate drainlayer recommendations Pharmacy is managing Coumadin dosing. -am labs, replace lytes prn -increase activity -DVT prophylaxis: [] Lovenox [] Heparin [] SCDs [x] Encourage ambulation [x] Already on Anticoagulation Advance Directive: Limited Discharge planning: TBD Demetris Stone MD Division of Hospitalist Medicine Inpatient Medical Services/[facility] PAGER: [phone] Occupational Therapy Facility/Department: [facility] Occupational Therapy Initial Assessment Name: [...] Will follow. Thank you. Physical Therapy Facility/Department: [facility] Physical Therapy Initial Assessment Name: [...] Social/Functional History Social/Functional History Lives With: Spouse ([place].) Type of Home: Assisted living Home Layout: [...] Assistance: Non-ambulatory Transfer Assistance: Needs assistance Active Is Technician: No Patient's Is Technician Info: daughter Mode of Transportation: Car Education: na Occupation: Retired Type of Occupation: worked at [employer] Vision: Within Functional Limits Vision [...] to side-step toward the HOB. Able to incident response manager FWW for 10 seconds with moderate assistance [...] were not included. Hospitalist Progress Note 03/09/2022 [phone]: Please page me ([phone]) for patient care issues. 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 Appreciate drainlayer recommendations On the day of discharge patient's [...] Medications These medications were sent to [address] - P [phone] - F [phone] [place] [address] (more content not included)... [facility] 03-11-2022 Hospital Discharge instructions Cleo Graff LPN - 03/11/2022 11:55 AM EDT Your physician has ordered skilled home care services for you. Your home care will be provided by: [facility] [phone] Viktoriya Danielson RN - 03/11/2022 5:43 PM [...] Relation: Child Secondary Emergency Contact: Adam Hunter ([facility]) Mobile Relation: Spouse Past Surgical History: [...] Dependent Dressing Dependent Toileting Dependent Feeding Independent Planogrammer Assisted Med Delivery whole Wound Care Documentation [...] 800 [Urine:800] Safety Concerns: { FARHAN Safety Concerns:574273869} Impairments/Disabilities: {[facility] Impairments/Disabilities:829562404 } Nutrition Therapy: Current Nutrition Therapy: - [...] applicable) Name: Address: Dialysis Schedule: Phone: Fax: And Taxi Instructor Bus Trolley/Investor Relations Analyst signature: {Esignature:051077215} PHYSICIAN SECTION Prognosis: {Prognosis:8732110166} Condition at Discharge: { Patient Condition:483341591} Rehab Potential (if transferring to Rehab): {Prognosis:6332931302} Recommended Labs or Other Treatments After Discharge: Physician Certification: I certify the above information and transfer of Randolph Hunter is necessary for the continuing treatment of the diagnosis listed and that she requires {Admit to Appropriate Level of Care:58392} for {GREATER/LESS:450398815} 30 days. Update Admission H&P: {CHP DME Changes in HandP:305098007} PHYSICIAN SIGNATURE: {Esignature:[id number]} documented in this encounter Add2paper Phone: 03-06-2022 Instructions Steven Pelaez - 03/06/2022 9:21 AM EDT Would recommend natalia to left foot daily Continue with padding on dressing to eliminate pressure Would highly recommend use of heel boots while sleeping to prevent pressure sores from developing. documented in this encounter [facility] 03-06-2022 History of Present illness [...] (H) 4.3 - 5.6 % Final Comment: [place] [employer] guidelines indicate that patients with [...] directed once a month. blood sugar diagnostic (GridBridge VERIO TEST STRIPS) test strip Test blood [...] H* Mental Status Change Penicillins Hives Dioxicillin Bzuhfht-Vmv-Znx Red* Myalgia PAST SURGICAL HISTORY Procedure Laterality [...] wrapping with gauze documented in this encounter [facility] 02-28-2022 Miscellaneous Notes Patient called in requesting order for wound care. Patient stated that she is at a assisted living facility and they stated by law they most have and order from physician to preform wound care. Please place order. Erlinda Ramsey LPN documented in this encounter [facility] 02-27-2022 History of Present illness Narrative Patient daughter picked up natalia. Erlinda Ramsey LPN documented in this encounter [facility] 02-27-2022 Miscellaneous Notes Returned patients call. Informed patient that her daughter can come strip picker natalia we will just have to [...] instructions. Patient can come to office to strip picker natalia. We will schedule a nurse visit. Erlinda Ramsey LPN Images from the original note were not included. Steven Matamoros RN; [facility] Pod[facility]ry Pool 52 minutes ago (3:52 PM) I have not yet ordered the natalia to pharmacy. If she wishes to strip picker at office, that may be the easiset option Steven Pelaez DPM Patient called in asking if Natalia has been sent to pharmacy? Patient asking if she can come by and strip picker Natalia from the office? Patient states she had to cancel this morning's appointment because her transportation never showed. Patient asking for order for Natalia to be sent to [facility] [place]. Rescheduled follow up appointment for 03/06. documented in this encounter [facility] 02-12-2022 Miscellaneous Notes Patient called in looking for results. Message from Dr. Pelaez given to patient. She verbalized understanding. documented in this encounter [facility] 02-10-2022 History of Present illness [...] 2022 9:22 AM documented in this encounter [facility] 02-10-2022 Instructions Steven Pelaez - 02/10/2022 8:37 AM EDT Recommend natalia to left foot ulceration daily Would recommend placing a donut hole pad on insert to offload ulceration when wearing shoes. Color ulceration with magic marker Step on insert Place pad around marking at site of ulceration Follow-up in 2 weeks Use loyda wraps for swelling reduction. documented in this encounter [facility] 02-10-2022 History of Present illness Narrative Chief Complaint: This 71 year old female who presents with chief complaint:ulceration of left 1st metatarsal HPI Patient presents to clinic for evaluation of left foot. Patient has ulceration to the plantar aspect of left 1st metatarsa. It apparently has been present for 1.5 months. She has been seeing a drainlayer in [place] who has been debriding and applying topical antibiotic cream. Patient is not currently wearing surgical shoe. She had similar ulceraiton last year and was treated with natalia. When she mentioned this to her drainlayer, she was referred here. She was advised [...] directed once a month. blood sugar diagnostic (GridBridge VERIO TEST STRIPS) test strip Test blood [...] H* Mental Status Change Penicillins Hives Dioxicillin Gfiuzgz-Eht-Npp Red* Myalgia PAST SURGICAL HISTORY Procedure Laterality [...] weeks Steven Pelaez DPM Podiatry [address] [facility] [address] Dept: [phone] Dept AMB ROOMING INTAKE FLOWSHEET DATA Risk [...] Erlinda Ramsey LPN documented in this encounter [facility] 11-30-2021 Miscellaneous Notes Left a [...] Bonnie Allen LPN documented in this encounter [facility] 11-19-2021 Miscellaneous Notes Detailed message [...] or narrative: no documented in this encounter [facility] 11-11-2021 Miscellaneous Notes Patient calling [...] no diet changes. documented in this encounter [facility] 10-30-2021 Miscellaneous Notes Patient notified [...] or narrative: no documented in this encounter [facility] 10-15-2021 Miscellaneous Notes Left a [...] Ava Rdz LPN documented in this encounter [facility] 10-15-2021 Miscellaneous Notes Spoke with pt and went over the results. Pt verbalizes understanding. Ava Rdz LPN documented in this encounter [facility] 10-14-2021 History of Present illness [...] 2021 3:03 PM documented in this encounter [facility] 10-09-2021 Miscellaneous Notes Pt called and is notified of providers message. Pt voices understanding, and is going to call [facility]. Del Decker RN TC to pt, left message to return call to office. Alberto Carpio LPN It looks like there is a valid prescription sent 10/03/2021 for HCQ 200mg daily #28 to [facility] authorized by Kuldeep Albert Usually we don't prescribe and the new accepting provider should be able to fill crossover prescriptions. Thanks, Edwin Cobian PA-C Patient calls and states that her previous administrative fellow had moved out of country. Patient states that she is in process of moving into assisted living and the [facility] will see her in regards to this. Patient asking if this can be filled for a 30 day supply? Please review and advise, Lexi Arce RN TC to pt. LM to call office, ask for triage nurse to get updates. Travis Chambers LPN [facility] accepting patient transfer should refill medication. Who are the current and future providers? We generally don't prescribe this medication. Thanks, Edwin Cobian PA-C Pt is asking if provider will order this medication for her for 1 month. She states her administrative fellow will not refill it for her because [...] Del Decker RN documented in this encounter [facility] 10-08-2021 Miscellaneous Notes Patient instructed of dosage with teach back method. Verbalizes understanding. Same dose, recheck 2 weeks. Thanks, Edwin Cobina PA-C Last INR: INR (POCT) 2.1(EXT) 10/08/2021 [...] or bleeding issues. documented in this encounter [facility] 10-01-2021 Miscellaneous Notes Patient instructed [...] or bleeding issues. documented in this encounter [facility] 10-01-2021 Miscellaneous Notes Refaxed form [...] call and advise. documented in this encounter [facility] 09-27-2021 Miscellaneous Notes Patient notified of results, verbalizes understanding of instructions. Travis Chambers LPN Thyroid is improving but still slightly low. Can we change synthroid to 150 mcg and recheck tsh in six weeks documented in this encounter [facility] 09-26-2021 Instructions Baudilio Sultana MD [...] usual activities immediately. documented in this encounter [facility] 09-26-2021 History of Present illness Narrative Patient presents with: Physical: moving into assisted living HPI: Patient presents today for office visit for follow up. Needs forms completed for assisted living facility[facility] in [place]. She is both excited and nervous about the move. Will be transitioning to [facility]. She asked us to do the [place] through October until the new physician has [...] directed once a month. blood sugar diagnostic (GridBridge VERIO TEST STRIPS) test strip Test blood [...] H* Mental Status Change Penicillins Hives Dioxicillin Kbhzcaf-Hgk-Xgy Red* Myalgia PAST MEDICAL HISTORY Diagnosis Date [...] CONSULT TO PHYSICAL THERAPY - CONSULT TO TRADE SHOW MANAGER 2. Carotid artery disease, unspecified laterality, unspecified [...] physician and prn. documented in this encounter [facility] 09-25-2021 Miscellaneous Notes Patient notified and voiced understanding. Roxann Gomez MA Same recheck one week Patient called in with home INR. Last INR: INR (POCT) 2.2 (ext) 09/25/2021 Current dose of coumadin is: 7.5 mg on and Thu, 5 mg all other days. Previous INR (date and result): 1.9 on 09/11/21 Additional Clinical Information or narrative: no documented in this encounter [facility] 09-18-2021 Miscellaneous Notes Patient notified [...] or bleeding issues. documented in this encounter [facility] 2021 Miscellaneous Notes TC to [...] or missed doses. documented in this encounter [facility] 01-29-2021 History of Present illness [...] 2021 1:01 PM documented in this encounter [facility] 01-04-2018 History of Past i [...] of this encounter (statuses as of 09/16/2021) [facility] History of Past illness Narrative* [...] of this encounter (statuses as of 09/18/2021) [facility] Narrative* [...] of this encounter (statuses as of 2021) [facility] Narrative* [...] of this encounter (statuses as of 09/25/2021) [facility] Narrative* [...] of this encounter (statuses as of 09/26/2021) [facility] Narrative* [...] of this encounter (statuses as of 09/27/2021) [facility] Narrative* [...] of this encounter (statuses as of 10/01/2021) [facility] Narrative* [...] of this encounter (statuses as of 10/01/2021) [facility] Narrative* [...] of this encounter (statuses as of 10/09/2021) [facility] Narrative* [...] of this encounter (statuses as of 10/15/2021) [facility] Narrative* [...] of this encounter (statuses as of 10/15/2021) [facility] Narrative* [...] of this encounter (statuses as of 10/15/2021) [facility] Narrative* [...] of this encounter (statuses as of 10/30/2021) [facility] Narrative* [...] of this encounter (statuses as of 11/11/2021) [facility] Narrative* [...] of this encounter (statuses as of 11/19/2021) [facility] Narrative* [...] of this encounter (statuses as of 11/30/2021) [facility] Narrative* [...] of this encounter (statuses as of 12/23/2021) [facility] Narrative* [...] of this encounter (statuses as of 02/10/2022) [facility] Narrative* [...] of this encounter (statuses as of 02/11/2022) [facility] Narrative* [...] of this encounter (statuses as of 02/12/2022) [facility] Narrative* [...] of this encounter (statuses as of 02/27/2022) [facility] Narrative* [...] of this encounter (statuses as of 03/03/2022) [facility] Narrative* [...] of this encounter (statuses as of 03/06/2022) [facility] N[facility]ative* [...] of this encounter (statuses as of 04/25/2022) [facility] Narrative* [...] of this encounter (statuses as of 06/25/2022) [facility] Narrative* [...] of this encounter (statuses as of 05/04/2023) [facility] Narrative* [...] of this encounter (statuses as of 05/04/2023) [facility] note* Diagnosis History of pulmonary embolism Personal history of pulmonary embolism documented in this encounter [facility] note* Diagnosis History of pulmonary embolism Personal history of pulmonary embolism documented in this encounter [facility] note* Diagnosis Cerebral palsy, unspecified type (HCC)- [...] radiculitis nos documented in this encounter [facility] noteNo assessment information availableWThe [facility] Work Phone: Evaluation note* Diagnosis Acquired hypothyroidism Unspecified hypothyroidism documented in this encounter [facility] note* Diagnosis Disorder of bone and cartilage Disorder of bone and cartilage, unspecified documented in this encounter [facility] note* Diagnosis Encounter for screening mammogram for breast cancer documented in this encounter [facility] note* Diagnosis Type 2 diabetes, controlled, with neuropathy (HCC)- Primary Type II or unspecified type diabetes mellitus with neurological manifestations, not stated as uncontrolled Diabetic ulcer of toe 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, with fat layer exposed (HCC) documented in this encounter [facility] note* Diagnosis Diabetic ulcer of toe 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, with fat layer exposed (HCC) documented in this encounter [facility] note* Diagnosis Diabetic ulcer of toe 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, with fat layer exposed (HCC)- Primary documented in this encounter [facility] note* Diagnosis Diabetic ulcer of toe 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, with fat layer exposed (HCC)- Primary Type 2 diabetes, controlled, with neuropathy (HCC) Type II or unspecified type diabetes mellitus with neurological manifestations, not stated as uncontrolled documented in this encounter [facility] note* Diagnosis Diabetic ulcer of other part 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, with fat layer exposed (HCC)- Primary Cellulitis of left lower extremity Cellulitis and abscess of leg, except foot PE (pulmonary thromboembolism) (HCC) Chronic pulmonary embolism Cellulitis Cellulitis and abscess of unspecified site documented in this encounter [facility] Work Phone: Evaluation note* Diagnosis Diabetic ulcer of toe 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, with fat layer exposed (HCC)- Primary documented in this encounter [facility] note* Diagnosis Fall, initial encounter- Primary Skin tear of hand without complication Cephalohematoma Other injuries to scalp Acute pain of right shoulder [facility] [place] [facility]* Diagnosis Exacerbation of asthma, unspecified asthma severity, unspecified whether persistent Hyperparathyroidism, primary ([facility]) Primary hyperparathyroidism Neuropathy Mononeuritis of unspecified site Osteoarthritis of AC (acromioclavicular) joints, bilateral Vitamin D deficiency Unspecified vitamin D deficiency Blister Other, multiple, and unspecified sites, blister, without mention of infection Candidiasis of breast Other candidiasis of other specified sites Lupus anticoagulant disorder ([facility]) Primary hypercoagulable state Cerumen in auditory canal on examination Chronic kidney disease, unspecified CKD stage Fall, sequela Knee pain, unspecified chronicity, unspecified laterality Chronic thromboembolic pulmonary hypertension (HCC) Other chronic pulmonary heart diseases Strain of calf muscle, unspecified laterality, subsequent encounter Traumatic ecchymosis of lower back, sequela Yeast infection of the skin Candidiasis of skin and nails documented in this encounter [facility] note* Diagnosis Frequent falls- Primary Right hip pain Pain in joint, pelvic region and thigh Contusion of right knee, initial encounter Osteoarthritis, unspecified osteoarthritis type, unspecified site [facility] [place] [facility]* Diagnosis Diabetic ulcer of left foot associated with diabetes mellitus due to underlying condition, unspecified part of foot, unspecified ulcer stage ([facility])- Primary Left leg cellulitis [facility] [place] [facility]* Diagnosis Pressure ulcer of right foot, stage 3 ([facility])- Primary documented in this encounter [facility] note* Diagnosis Chronic right shoulder pain Pain in joint, shoulder region documented in this encounter [facility] note* Diagnosis Acute cough- Primary documented in this encounter [facility] note* Diagnosis Fall at home, initial [...] manifestations, not stated as uncontrolled Atherosclerosis of [place] coronary artery of [place] heart without angina pectoris Other pulmonary embolism without acute cor pulmonale, unspecified chronicity (HCC) Debility Debility, unspecified [facility] [place]* Diagnosis Fall at home, initial encounter- [...] Neuropathy Mononeuritis of unspecified site Atherosclerosis of [place] coronary artery of [place] heart without angina pectoris Other pulmonary embolism without acute cor pulmonale, unspecified chronicity (HCC) Debility Debility, unspecified [facility] [place] [facility]* Diagnosis Fall at home, initial encounter- [...] manifestations, not stated as uncontrolled Atherosclerosis of [place] coronary artery of [place] heart without angina pectoris Other pulmonary embolism without acute cor pulmonale, unspecified chronicity (HCC) Debility Debility, unspecified [facility] [place] [facility]* Diagnosis Primary osteoarthritis of left knee- Primary Primary localized osteoarthrosis, lower leg [facility] Sprain of left ankle, unspecified ligament, initial encounter- Primary Ankle instability, left Chronic pain of left ankle [facility] [place] [facility]* Diagnosis Sprain of left ankle, unspecified ligament, initial encounter Ankle instability, left documented in this encounter [facility] for referral (narrative)* Diagnostic Procedure Only (Routine) - Pending Review Specialty Diagnoses / Procedures Referred By Enrique t Referred To Contact BR IMAGING Diagnoses Encounter for screening mammogram for breast cancer Procedures FUAD SCREENING SCREENING MAMMOGRAPHY BI 2-VIEW BREAST INC Baudilio Condon MD [address] [place] [address] [facility] [address] [place] [address] Referral ID Status Reason Start Date Expiration Date Visits Requested Visits Authorized [id number] Pending Review Auto-Generat ed Referral 12/18/2021 01/17/2023 1 1 T [facility] for referral (narrative)* Diagnostic Procedure Only (Routine) - Closed Specialty Diagnoses / Procedures [facility]erred To Contact XR IMAGING Diagnoses Diabetic ulcer of toe 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, with fat layer exposed (HCC) Procedures XR FOOT GENERAL 3V AP/LAT/OBL LEFT RADEX FOOT COMPLETE MINIMUM 3 VIEWS Steven Pelaez [address] [place] [address] Xr Imaging Referral ID Status Reason Start Date Expiration Date V isits Requested Visits Authorized [id number] Closed Auto-Generate d Referral 02/10/2022 03/12/2023 1 1 T [facility] for referral (narrative)* Diagnostic Procedure Only (Routine) - Closed Specialty Diagnoses / Procedures [facility] Referred To Contact XR IMAGING Diagnoses Diabetic ulcer of toe 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, with fat layer exposed (HCC) Procedures XR FOOT GENERAL 3V AP/LAT/OBL LEFT RADEX FOOT COMPLETE MINIMUM 3 VIEWS Steven Pelaez [address] [place] [address] Xr Imaging Referral ID Status Reason Start Date Expiration Date V isits Requested Visits Authorized [id number] Closed Auto-Generate d Referral 02/10/2022 03/12/2023 1 1 [facility] for referral (narrative)No reason for referral information availableWThe [facility] Work Phone: [facility] N[facility]* Diagnostic Procedure Only (Routine) - Closed Specialty Diagnoses / Procedures Referred By Contac t Referred To Contact Radiology / RADIO BONE DENSITY [facility] Diagnoses Disorder of bone and cartilage [M89.9, M94.9] Procedures BONE DENSITY ADULT 225 Baudilio Sultana MD [address] [place] [address] Radio Bone Density [facility] [address] [place] [address] Referral ID Status Reason Start Date Expiration Date Visits Re quested Visits Authorized [id number] Closed 10/14/2021 06/21/2022 1 1 [facility] for visit Narrative* Diagnostic Procedure Only (Routine) - Closed Specialty Diagnoses / Procedures Referred By Contac t Referred To Contact XR IMAGING Diagnoses Diabetic ulcer of toe 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, with fat layer exposed (HCC) Procedures XR FOOT GENERAL 3V AP/LAT/OBL LEFT RADEX FOOT COMPLETE MINIMUM 3 VIEWS Steven Pelaez[address] [place] [address] Xr Imaging Referral ID Status Reason Start Date Expiration Date V isits Requested Visits Authorized [id number] Closed Auto-Generate d Referral 02/10/2022 03/12/2023 1 1 [facility] for visit Narrative* Diagnostic Procedure Only (Routine) - Closed Specialty Diagnoses / Procedures Referred By Contac t Referred To Contact XR IMAGING Diagnoses Sprain of left ankle, unspecified ligament, initial encounter Ankle instability, left Procedures XR TIBIA FIBULA 2V AP/LAT LEFT RADIOLOGIC EXAMINATION TIBIA & FIBULA 2 VIEWS Steven Pelaez[address] [place] [address] Phone: tel: fax: [place] [address] Referral ID Status Reason Start Date Expiration Date V isits Requested Visits Authorized [id number] Closed Auto-Generate d Referral 10/27/2024 11/26/2025 1 1 [facility] Summary Purpose Family History No [...] FoundDocuments on File Type Date Recorded Patient Fsr Expl anation Advance Directive(s) 11/24/2016 2:36 PM Advance Directive(s) 10/24/2016 10:01 AM Advance Directive(s) 12/26/2013 2:29 PM Documents on File Type Date Recorded Patient Fsr Expl anation Advance Directive(s) 11/24/2016 2:36 PM Advance Directive(s) 10/24/2016 10:01 AM Advance Directive(s) 12/26/2013 2:29 PM Advance Directive Response Recorded Date/ Time Advance Directives Yes January 04 7:42pm Living Will Yes April 22 10:07pm Power of Senior Restaurant Manager Yes April 22, 2021 10:07pm Documents on File Type Date Recorded Patient Fsr Expl anation Advance Directive(s) 12/26/2013 2:29 PM Documents on File Type Date Recorded Patient Fsr Expl anation Advance Directive(s) 12/26/2013 2:29 PM Latest Code Status on File Code Status Date Activated Date Inactivated Comments Limited 03/08/2022 4:21 PM Intubation/Re-intubation at the time of arrest: No Defibrillation/Cardioversion: No Chest Compressions: No Resuscitative Medications: Yes Healthcare Agents on File Name Relationship Healthcare Agent Relationshi p Communication Lisha Elayne Child Primary Decision Maker Documents on File Type Date Recorded Patient Fsr Expl anation DNR (Do Not Resuscitate) 12/18/2023 10:52 AM Advance Directive Response Recorded Date/ Time Advance Directives Yes January 04 7:42pm Reason for Referral Specialty Diagnoses / Procedures Referred By Contac t Referred To Contact [facility] Diagnoses Cerebral palsy, unspecified type (HCC) Procedures CONSULT TO TRADE SHOW MANAGER OCCUPATIONAL THERAPY EVAL HIGH COMPLEX 60 MINS Baudilio Sultana MD [address] [place] [address] [facility] [address] [address] Referral ID Status Reason Start Date Expiration Date Visits Requested Visits Authorized [id number] Pending Review Auto-Generat ed Referral 09/26/2021 09/26/2022 1 1 Specialty Diagnoses / Procedures Referred By Contac t Referred To Contact [facility] Diagnoses Cerebral palsy, unspecified type (HCC) Procedures CONSULT TO PHYSICAL THERAPY PHYSICAL THERAPY EVALUATION HIGH COMPLEX 45 MINS Baudilio Sultana MD [address] [place] [address] [address] Referral ID Status Reason Start Date Expiration Date Visits Requested Visits Authorized [id number] Pending Review Auto-Generat ed Referral 09/26/2021 09/26/2022 1 1 Specialty Diagnoses / Procedures Referred By Contac t Referred [facility] Diagnoses Carotid artery disease, unspecified laterality, unspecified type (HCC) Procedures US CAROTID ARTERIES DUSTIN VAS LAB DUPLEX SCAN EXTRACRANIAL ART COMPL BI STUDY Baudilio Sultana MD [address] [place] [address] [facility] [address] [address] Referral ID Status Reason Start Date Expiration Date Visits Requested Visits Authorized [id number] Additional Clinical Info Needed Auto-Generat ed Referral 09/26/2021 09/26/2022 1 1 Specialty Diagnoses / Procedures Referred By Contac t Referred To Contact Wound Care / IP Unit Diagnoses Diabetic ulcer of other part 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, with fat layer exposed (HCC) Ritika Fonseca, GEOSPATIAL ENGINEER - SUPERVISOR PHOTOENGRAVING [address] [place] [address] [facility] [address] [place] [address] Referral ID Status Reason Start Date Expiration Date V isits Requested Visits Authorized [id number] Open Specialty Services Required 03/11/2022 03/11/2023 1 1 Scheduling Instructions [facility] Wound Care/Hyperbaric [facility] [address] [place] [address] Comments Wound Center/Hyperbaric Medicine is located on the ground floor of [facility] (just behind registration). Bring photo ID [...] section and content) DATE CREATED AUTHOR [facility]/11/2017 [facility] DATE CREATED AUTHOR AUTHOR'S ORGANIZ ATION 12/11/2017 [facility] DATE CREATED AUTHOR AUTHOR'S ORGANIZ ATION 03/31/2022 [facility] DATE CREATED AUTHOR AUTHOR'S ORGANIZ ATION 09/08/2022 [facility] DATE CREATED AUTHOR AUTHOR'S ORGANIZ ATION 07/11/2024 [facility] DATE CREATED AUTHOR AUTHOR'S ORGANIZ ATION 10/01/2024 [facility] DATE CREATED AUTHOR AUTHOR'S ORGANIZ ATION 11/09/2024 [facility] DATE CREATED AUTHOR AUTHOR'S ORGANIZ ATION 05/02/2025 [facility] DATE CREATED AUTHOR AUTHOR'S ORGANIZ ATION 05/04/2025 [facility] Source Comments (unrecognize d section and content) In the event this informatio n is protected by the Federal Confidentiality of Alcohol and Drug Abuse Patient Records regulations: The Federal rules restrict any use of the information to criminally investigate or prosecute any alcohol or drug abuse patient.[facility] the event this information is protected by the Federal Confidentiality of Alcohol and Drug Abuse Patient Records regulations: The Federal rules restrict any use of the information to criminally investigate or prosecute any alcohol or drug abuse patient.[facility] the event this information is protected by the Federal Confidentiality of Alcohol and Drug Abuse Patient Records regulations: The Federal rules restrict any use of the information to criminally investigate or prosecute any alcohol or drug abuse patient.[facility] Center[facility] the event this information is protected by the Federal Confidentiality of Alcohol and Drug Abuse Patient Records regulations: The Federal rules restrict any use of the information to criminally investigate or prosecute any alcohol or drug abuse patient.[facility] Center[facility] the event this information is protected by the Federal Confidentiality of Alcohol and Drug Abuse Patient Records regulations: The Federal rules restrict any use of the information to criminally investigate or prosecute any alcohol or drug abuse patient.[facility] CenterIn the event this information is protected by the Federal Confidentiality of Alcohol and Drug Abuse Patient Records regulations: The Federal rules restrict any use of the information to criminally investigate or prosecute any alcohol or drug abuse patient.[facility] Center[facility] the event this information is protected by the Federal Confidentiality of Alcohol and Drug Abuse Patient Records regulations: The Federal rules restrict any use of the information to criminally investigate or prosecute any alcohol or drug abuse patient.[facility] Center[facility] the event this information is protected by the Federal Confidentiality of Alcohol and Drug Abuse Patient Records regulations: The Federal rules restrict any use of the information to criminally investigate or prosecute any alcohol or drug abuse patient.[facility] Center[facility] the event this information is protected by the Federal Confidentiality of Alcohol and Drug Abuse Patient Records regulations: The Federal rules restrict any use of the information to criminally investigate or prosecute any alcohol or drug abuse patient.[facility] Center[facility] the event this information is protected by the Federal Confidentiality of Alcohol and Drug Abuse Patient Records regulations: The Federal rules restrict any use of the information to criminally investigate or prosecute any alcohol or drug abuse patient.[facility] Center[facility] the event this information is protected by the Federal Confidentiality of Alcohol and Drug Abuse Patient Records regulations: The Federal rules restrict any use of the information to criminally investigate or prosecute any alcohol or drug abuse patient.[facility] Center[facility] the event this information is protected by the Federal Confidentiality of Alcohol and Drug Abuse Patient Records regulations: The Federal rules restrict any use of the information to criminally investigate or prosecute any alcohol or drug abuse patient.[facility] CenterIn the event this information is protected by the Federal Confidentiality of Alcohol and Drug Abuse Patient Records regulations: The Federal rules restrict any use of the information to criminally investigate or prosecute any alcohol or drug abuse patient.[facility] CenterIn the event this information is protected by the Federal Confidentiality of Alcohol and Drug Abuse Patient Records regulations: The Federal rules restrict any use of the information to criminally investigate or prosecute any alcohol or drug abuse patient.[facility] CenterIn the event this information is protected by the Federal Confidentiality of Alcohol and Drug Abuse Patient Records regulations: The Federal rules restrict any use of the information to criminally investigate or prosecute any alcohol or drug abuse patient.[facility] CenterIn the event this information is protected by the Federal Confidentiality of Alcohol and Drug Abuse Patient Records regulations: The Federal rules restrict any use of the information to criminally investigate or prosecute any alcohol or drug abuse patient.[facility] CenterIn the event this information is protected by the Federal Confidentiality of Alcohol and Drug Abuse Patient Records regulations: The Federal rules restrict any use of the information to criminally investigate or prosecute any alcohol or drug abuse patient.[facility] CenterIn the event this information is protected by the Federal Confidentiality of Alcohol and Drug Abuse Patient Records regulations: The Federal rules restrict any use of the information to criminally investigate or prosecute any alcohol or drug abuse patient.[facility] CenterIn the event this information is protected by the Federal Confidentiality of Alcohol and Drug Abuse Patient Records regulations: The Federal rules restrict any use of the information to criminally investigate or prosecute any alcohol or drug abuse patient.[facility] CenterIn the event this information is protected by the Federal Confidentiality of Alcohol and Drug Abuse Patient Records regulations: The Federal rules restrict any use of the information to criminally investigate or prosecute any alcohol or drug abuse patient.[facility] CenterIn the event this information is protected by the Federal Confidentiality of Alcohol and Drug Abuse Patient Records regulations: The Federal rules restrict any use of the information to criminally investigate or prosecute any alcohol or drug abuse patient.[facility] CenterIn the event this information is protected by the Federal Confidentiality of Alcohol and Drug Abuse Patient Records regulations: The Federal rules restrict any use of the information to criminally investigate or prosecute any alcohol or drug abuse patient.[facility] CenterIn the event this information is protected by the Federal Confidentiality of Alcohol and Drug Abuse Patient Records regulations: The Federal rules restrict any use of the information to criminally investigate or prosecute any alcohol or drug abuse patient.[facility] CenterIn the event this information is protected by the Federal Confidentiality of Alcohol and Drug Abuse Patient Records regulations: The Federal rules restrict any use of the information to criminally investigate or prosecute any alcohol or drug abuse patient.[facility] CenterIn the event this information is protected by the Federal Confidentiality of Alcohol and Drug Abuse Patient Records regulations: The Federal rules restrict any use of the information to criminally investigate or prosecute any alcohol or drug abuse patient.[facility] CenterIn the event this information is protected by the Federal Confidentiality of Alcohol and Drug Abuse Patient Records regulations: The Federal rules restrict any use of the information to criminally investigate or prosecute any alcohol or drug abuse patient.[facility] CenterIn the event this information is protected by the Federal Confidentiality of Alcohol and Drug Abuse Patient Records regulations: The Federal rules restrict any use of the information to criminally investigate or prosecute any alcohol or drug abuse patient.[facility] CenterIn the event this information is protected by the Federal Confidentiality of Alcohol and Drug Abuse Patient Records regulations: The Federal rules restrict any use of the information to criminally investigate or prosecute any alcohol or drug abuse patient.[facility] CenterIn the event this information is protected by the Federal Confidentiality of Alcohol and Drug Abuse Patient Records regulations: The Federal rules restrict any use of the information to criminally investigate or prosecute any alcohol or drug abuse patient.[facility] CenterIn the event this information is protected by the Federal Confidentiality of Alcohol and Drug Abuse Patient Records regulations: The Federal rules restrict any use of the information to criminally investigate or prosecute any alcohol or drug abuse patient.[facility] CenterIn the event this information is protected by the Federal Confidentiality of Alcohol and Drug Abuse Patient Records regulations: The Federal rules restrict any use of the information to criminally investigate or prosecute any alcohol or drug abuse patient.[facility] CenterIn the event this information is protected by the Federal Confidentiality of Alcohol and Drug Abuse Patient Records regulations: The Federal rules restrict any use of the information to criminally investigate or prosecute any alcohol or drug abuse patient.[facility] CenterIn the event this information is protected by the Federal Confidentiality of Alcohol and Drug Abuse Patient Records regulations: The Federal rules restrict any use of the information to criminally investigate or prosecute any alcohol or drug abuse patient.[facility] CenterIn the event this information is protected by the Federal Confidentiality of Alcohol and Drug Abuse Patient Records regulations: The Federal rules restrict any use of the information to criminally investigate or prosecute any alcohol or drug abuse patient.[facility] CenterIn the event this information is protected by the Federal Confidentiality of Alcohol and Drug Abuse Patient Records regulations: The Federal rules restrict any use of the information to criminally investigate or prosecute any alcohol or drug abuse patient.[facility] CenterIn the event this information is protected by the Federal Confidentiality of Alcohol and Drug Abuse Patient Records regulations: The Federal rules restrict any use of the information to criminally investigate or prosecute any alcohol or drug abuse patient.[facility] CenterIn the event this information is protected by the Federal Confidentiality of Alcohol and Drug Abuse Patient Records regulations: The Federal rules restrict any use of the information to criminally investigate or prosecute any alcohol or drug abuse patient.[facility] Care Teams (unrecognized sec tion and content) Qa Reviewer Relationship Specialty Start Date End Date Baudilio Sultana MD [address] [place] [address] PCP - General Family Practice 04/01/18 Jackson Lee Consulting Rheumatology 10/12/17 Qa Reviewer Relationship Specialty Start Date End Date Baudilio Sultana MD [address] [place], [place] [id number] PCP - General Family Practice 04/01/18 Jackson Leeardo Consulting Rheumatology 10/12/17 Qa Reviewer Relationship Specialty Start Date End Date Baudilio Sultana MD [address] [place] [address] PCP - General Family Practice 04/01/18 Jackson Lee Consulting Rheumatology 10/12/17 Qa Reviewer Relationship Specialty Start Date End Date Baudilio Sultana MD [address] [place] [address] PCP - General Family Practice 04/01/18 Jackson Lee Consulting Rheumatology 10/12/17 Qa Reviewer Relationship Specialty Start Date End Date Baudilio Sultana MD [address] [place] [address] PCP - General Family Practice 04/01/18 Jackson Leeo Consulting Rheumatology 10/12/17 Qa Reviewer Relationship Specialty Start Date End Date Baudilio Sultana MD [address] [place] [address] PCP - General Family Practice 04/01/18 Jackson Leeardo Consulting Rheumatology 10/12/17 Qa Reviewer Relationship Specialty Start Date End Date Baudilio Sultana MD [address] [place] [address] PCP - General Family Practice 04/01/18 Jackson Leeardo Consulting Rheumatology 10/12/17 Qa Reviewer Relationship Specialty Start Date End Date Baudilio Sultana MD [address] [place] [address] PCP - General Family Practice 04/01/18 Jackson Lee Consulting Rheumatology 10/12/17 Qa Reviewer Relationship Specialty Start Date End Date Baudilio Sultana MD [address] [place] [address] PCP - General Family Practice 04/01/18 Jackson Leeo Consulting Rheumatology 10/12/17 Qa Reviewer Relationship Specialty Start Date End Date Baudilio Sultana MD [address] [place] [address] PCP - General Family Practice 04/01/18 Jackson Leeo Consulting Rheumatology 10/12/17 Qa Reviewer Relationship Specialty Start Date End Date Baudilio Sultana MD [address] [place] [address] PCP - General Family Practice 04/01/18 Jackson Lee Consulting Rheumatology 10/12/17 Qa Reviewer Relationship Specialty Start Date End Date Baudilio Sultana MD [address] [place] [address] PCP - General Family Practice 04/01/18 Jackson Leeo Consulting Rheumatology 10/12/17 Qa Reviewer Relationship Specialty Start Date End Date Baudilio Sultana MD [address] [place] [address] PCP - General Family Practice 04/01/18 Jackson Leeardo Consulting Rheumatology 10/12/17 Qa Reviewer Relationship Specialty Start Date End Date Baudilio Sultana MD [address] [place] [address] PCP - General Family Practice 04/01/18 Jackson Leeo Consulting Rheumatology 10/12/17 Qa Reviewer Relationship Specialty Start Date End Date Baudilio Sultana MD [address] [place] [address] PCP - General Family Practice 04/01/18 Jackson Leeardo Consulting Rheumatology 10/12/17 Qa Reviewer Relationship Specialty Start Date End Date Baudilio Sultana MD [address] [place] [address] PCP - General Family Practice 04/01/18 Jackson Lee Consulting Rheumatology 10/12/17 Qa Reviewer Relationship Specialty Start Date End Date Baudilio Sultana MD [address] [place], [place] [address] PCP - General Family Medicine 04/01/18 04/24/22 Jackson Lee Consulting Rheumatology 10/12/17 Qa Reviewer Relationship Specialty Start Date End Date Baudilio Sultana MD [address] [place], [place] [id number] PCP - General Family Medicine 04/01/18 04/24/22 Jackson Lee Consulting Rheumatology 10/12/17 Qa Reviewer Relationship Specialty Start Date End Date Jackson Lee MD Consulting Rheumatology 10/12/17 Qa Reviewer Relationship Specialty Start Date End Date Jackson Lee MD Consulting Rheumatology 10/12/17 Qa Reviewer Relationship Specialty Start Date End Date Gio Harvey [address], [place] [address] PCP - General Certified Nurse Practitioner 01/13/24 Qa Reviewer Relationship Specialty Start Date End Date Gio Harvey [address], [place] [address] PCP - General Certified Nurse Practitioner 01/13/24 Qa Reviewer Relationship Specialty Start Date End Date Baudilio Sultana MD [address] [place], [place] [id number] PCP - General Family Medicine 04/01/18 04/24/22 Jackson Lee MD Consulting Rheumatology 10/12/17 Qa Reviewer Relationship Specialty Start Date End Date Gio Harvey [address], [place] [address] PCP - General Certified Nurse Practitioner 01/13/24 07/09/24 Qa Reviewer Relationship Specialty Start Date End Date Gio Harvey [address], [place] [address] PCP - General Certified Nurse Practitioner 01/13/24 07/09/24 Qa Reviewer Relationship Specialty Start Date End Date Raf Casey MD [address] [phone] PCP - General Internal Medicine 08/27/23 Jackson Lee MD Consulting Rheumatology 10/12/17 Qa Reviewer Relationship Specialty Start Date End Date Raf Casey MD [address] [facility] [address] [place] [phone] PCP - General Internal Medicine 08/27/23 Jackson Lee MD Consulting Rheumatology 10/12/17 Qa Reviewer Relationship Specialty Start Date End Date Raf Casey MD [address] [phone] PCP - General Internal Medicine 08/27/23 Jackson Lee MD Consulting Rheumatology 10/12/17 Qa Reviewer Relationship Specialty Start Date End Date Raf Casey MD [address] [place] [phone] PCP - General Internal Medicine 08/27/23 Jackson Lee MD Consulting Rheumatology 10/12/17 Qa Reviewer Relationship Specialty Start Date End Date Raf Casey MD [address] [place] [phone] PCP - General Internal Medicine 08/27/23 Jackson Lee MD Consulting Rheumatology 10/12/17 Qa Reviewer Relationship Specialty Start Date End Date Raf Casey MD [address] [place] [phone] PCP - General Internal Medicine 08/27/23 Jackson Lee MD Consulting Rheumatology 10/12/17 Qa Reviewer Relationship Specialty Start Date End Date Raf Casey MD [address] [place] [phone] PCP - General Internal Medicine 08/27/23 Jackson [...] 4C EST WELL Self Baudilio Sultana MD [address] [place] [address] Referral ID Status Reason Start Date Expiration Date V isits Requested Visits Authorized [id number] Closed Financial Clearance Required - OON Payor [...] home. D/c got changed due to transportation) 0855 (Given - Provider: Alexandra Yao, RN) warfarin [...] Scheduled Medication Order 07/18/2023 07/19/2023 07/20/2023 HYDROcodone-acetaminophen ([place]) 5-325 MG per tablet 1 tablet (COMPLETED) 1 tablet, Oral, Once, On Thu07/19/23 at 2030, For 1 dose, Maximum dose of acetaminophen is 4000 mg from all sources in 24 hours. 2030 (Given - Provider: Pia Caraballo RN) HYDROcodone-acetaminophen ([place]) 5-325 MG per tablet 1 tablet (COMPLETED) 1 tablet, Oral, Once, On Thu07/20/23 at 0105, For 1 dose, Maximum dose of acetaminophen is 4000 mg from all sources in 24 hours. 0154 (Given - Provid er: Gifty Cornell RN) HYDROcodone-acetaminophen ([place]) 5-325 MG per tablet 1 tablet (COMPLETED) [...] BE BASED ON THE PRIMARY CLINICAL RECORDS. [facility] [address] [facility]. provides no warranty or guarantee of the accuracy or completeness of information in this document.
[2025-06-14 05:50] LABS: INR Fingerstick 2.4
== END ==
LOC: OLS.WCC 05:00
PROVIDERS: PCP Family Medicine; Visit Provider Family Medicine
DX: Z79.01 Long term (current) use of anticoagulants (principal)
CPT/HCPCS: 36416; 85610